=== PATIENT | male | born 1945 | race Caucasian/White ===

== ENCOUNTER 2017-07-08 10:25 | Day surgery (SDC) | payer MEDICARE, OTHER, SELFPAY ==
[2017-07-08 10:52] VITALS: BP 142/78; PULSE 87; RESP 16; TEMP 36.9; O2SAT 99; BMI 42.3
[2017-07-08] MEDS: Cefazolin 2 GM in 0.9% Normal Saline 100 ML IV (12:23)
[2017-07-08] MEDS: Bupivacaine Mpf 0.5% 30 ML VIAL (12:30)
--- NOTE | 2017-07-08 12:59 | PCM.OPRPT ---
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 The neck and chest were sterilely prepped and draped in the usual fashion. Seldinger's technique was used to gain access to the internal jugular vein guidewire was placed over the needle the needle was removed fluoroscopy was used to confirm placement of the guidewire into the internal jugular vein. Local was injected into the chest. Incision was made a pocket was created with use electrocautery for the port. A skin uri was made in the neck dilator and sheath were placed over the guidewire the guidewire was removed the dilator was removed single lumen catheter was placed through the sheath and the sheath was removed. Using fluoroscopy we use this to confirm proper length of the catheter. A tunneled from the pocket over the collarbone into the neck and brought the catheter down. I cut the catheter to length placed the locking hub on the catheter the port onto the catheter and secured the 2 with the locking hub and flushed and irrigated well it was sutured into the pocket with 2 sutures of 2-0 Prolene. Skin incisions were brought together with deep dermal stitches of 3-0 Vicryl. Dermabond was applied. I accessed the port and flushed and irrigated well and was flushed with 5 cc of hep flush sterile dressings were applied and the patient tolerated the procedure well. - Admit VTE Documentation VTE Present on Admission: No VTE Mechan Device Prophylaxis: SCD's VTE Pharm Prophylaxis ordered?: No Reason prophylaxis not ordered:: Treatment Not Indicated
[2017-07-08 13:10] VITALS: BP 125/60; BP 134/77; BP 142/78; PULSE 60; PULSE 94; RESP 16; TEMP 36.3; O2SAT 94; O2SAT 97
[2017-07-08 13:15] VITALS: BP 117/53; BP 142/78; PULSE 66; RESP 16; O2SAT 95
--- NOTE | 2017-07-08 13:15 | RAD_ITS ---
STUDY: X-RAY CHEST REASON FOR EXAM: Male, 71 years old. Port placement. TECHNIQUE: Single AP portable view of the chest. COMPARISON: Comparison is made with prior examination dated March 12, 2017. FINDINGS: A right-sided portacatheter has been placed. The tip is in the proximal portion of the superior vena cava. The lungs are clear and expanded. There is no demonstrated pleural abnormality. Sternal cerclage wires and vascular clips are present from a prior sternotomy and coronary artery bypass graft procedure (CABG). Borderline cardiomegaly. Normal mediastinum and yovanny. Normal visualized pulmonary arteries. Normal visualized aortic arch and descending thoracic aorta. Normal visualized thoracic spine. Normal visualized ribs, clavicles, and shoulders. There is no demonstrated abnormality of the visualized soft tissue structures of the upper abdomen. RAD/Chest 1 View (Portable) IMPRESSION: The tip of the right-sided portacatheter is in the proximal portion of the superior vena cava. Electronically Signed: Navdeep Pacheco MD at 14:02 EST Tel [phone], Service support ,
[2017-07-08 13:20] VITALS: BP 142/78; BP 96/83; PULSE 74; RESP 16; O2SAT 95
[2017-07-08 13:25] VITALS: BP 134/58; BP 142/78; PULSE 70; RESP 16; TEMP 36.4; O2SAT 99
[2017-07-08 13:58] VITALS: BP 142/78
== END 2017-07-08 14:00 | disposition home or self-care (01) ==
LOC: SDC 10:27 → AC 10:28
PROVIDERS: Family Provider Internal Medicine; PCP Internal Medicine; Visit Provider Surgery
PROC: (CPT 36561; principal; 2017-07-08 12:15)
DX: C34.12 Malignant neoplasm of upper lobe, left bronchus or lung (principal); Z45.2 Encounter for adjustment and management of vascular access device; I25.10 Atherosclerotic heart disease of native coronary artery without angina pectoris; I48.91 Unspecified atrial fibrillation; I47.2 Ventricular tachycardia; I10 Essential (primary) hypertension; J44.9 Chronic obstructive pulmonary disease, unspecified; E78.00 Pure hypercholesterolemia, unspecified; G31.83 Neurocognitive disorder with Lewy bodies; F02.80 Dementia in other diseases classified elsewhere, unspecified severity, without behavioral disturbance, psychotic disturbance, mood disturbance, and anxiety; G47.33 Obstructive sleep apnea (adult) (pediatric); I27.20 Pulmonary hypertension, unspecified; Z79.01 Long term (current) use of anticoagulants; Z99.81 Dependence on supplemental oxygen; Z95.1 Presence of aortocoronary bypass graft; Z79.82 Long term (current) use of aspirin; Z79.899 Other long term (current) drug therapy; Z95.5 Presence of coronary angioplasty implant and graft; E11.40 Type 2 diabetes mellitus with diabetic neuropathy, unspecified; Q23.1 Congenital insufficiency of aortic valve; E66.9 Obesity, unspecified; Z68.41 Body mass index [BMI] 40.0-44.9, adult
CPT/HCPCS: 00532; 36561; 71045; 77001; J7120; C1788

== ENCOUNTER 2017-08-31 12:29 | Emergency (ER) | payer MEDICARE, OTHER, SELFPAY ==
[2017-08-31 12:30] VITALS: BP 122/49; PULSE 86; RESP 26; TEMP 35.8; O2SAT 95; BMI 43.0
[2017-08-31] MEDS: Oxymetazoline 0.05% 1 SPRAY SPRAY.BTL NASAL (12:50)
--- NOTE | 2017-08-31 13:36 | ED.VISSUMM ---
- ER Visit Summary Date of Service: 08/31/17 Chief Complaint: [] Right sided nosebleed multiple medical problems Xarelto aspirin therapy History of Present Illness: The patient is a 71 M [] history of heart disease, A. fib on the lung cancer, home O2, recent chemotherapy, recent blood transfusion a few days ago reports he has had intermittent bleeding from his right nostril he has had a URI minimally, blowing his nose quite a bit the bleeding persisted today and he came in he has not taken his Xarelto or aspirin yet. He denies any vomiting of blood or blood per rectum or bruisability the skin he is otherwise been in his stable state of health eating and drinking and going about his usual type activities Physical Examination: [] Total signs are within normal range there is excoriation of the right nasal septum there is clot in place that appears fresh there is no active bleeding the left nostril is clear the throat is clear no bleeding the neck is supple he is on home O2 his lungs are diminished the heart tones are unremarkable rate of about 80 the abdomen soft nontender obese he is moving all 4 extremities in no distress awake and alert right nasal pack place with no difficulty Test Results: [] Emergency Department Course and Treatment: [] That complaint we did pack his nose we look at his recent blood tests we had a platelet count of 100,000, hemoglobin about 8 after packing the right nostril he had no further bleeding during observation we checked the back of his throat that was also dry I explained to the we could repeat his blood tests but given that they were just done she deferred that he was started on Keflex follow-up with Dr. Antonio of ENT and all his other physicians or return for further bleeding I have asked him to hold his Xarelto and aspirin for 24-48 hrs. until he follows up is done that in the past with no difficulty Treatment Plan: [] Disposition: [] Stable home Impression: [] rt Sided nosebleed, nasal pack multiple medical history as above This note was generated with [employer] dictation software. It may contain incorrect words, spelling, and punctuation that were not noted in review of the chart prior to signing ED Disposition - Plan for ED Patient: Chief Complaint: Nosebleed Referrals: Fast,Fany, DO [Primary Care Provider] -
--- NOTE | 2017-08-31 13:50 | ED.DEP ---
ED Disposition - Plan for ED Patient: Chief Complaint: Nosebleed Instructions: Nosebleed Prescriptions: Cephalexin [Keflex] 500 mg PO Q6 #40 cap Referrals: Fany Hobson DO [Primary Care Provider] - Derek Prescott MD [STAFF PHYSICIAN] -
[2017-08-31 14:07] VITALS: BP 118/80; PULSE 92; RESP 14; O2SAT 98
[2017-08-31] MEDS: Cephalexin 250 MG Capsule 500 MG PO (14:12)
== END 2017-08-31 14:18 | disposition home or self-care (01) ==
PROVIDERS: Emergency Provider Emergency Medicine; Family Provider Internal Medicine; PCP Internal Medicine
DX: R04.0 Epistaxis (principal); I51.9 Heart disease, unspecified; I48.91 Unspecified atrial fibrillation; C34.90 Malignant neoplasm of unspecified part of unspecified bronchus or lung; Z99.81 Dependence on supplemental oxygen; Z79.01 Long term (current) use of anticoagulants; Z79.82 Long term (current) use of aspirin; Z79.899 Other long term (current) drug therapy
CPT/HCPCS: 30901; 99282

== ENCOUNTER 2017-09-01 15:00 | Outpatient (CLI) | payer MEDICARE, OTHER, SELFPAY ==
[2017-09-01] VITALS (8 sets, daily range): BP systolic 123–168; BP diastolic 43–79; PULSE 65–122; RESP 16–20; TEMP 36.7–37.3; O2SAT 91–98
--- NOTE | 2017-09-01 17:22 | NURSING ---
LUNGS CLEAR BUT DIMINISHED
[2017-09-01] MEDS: Furosemide 20 MG/2 ML VIAL IV (18:50)
[2017-09-01] MEDS: 0.9% NaCl VAD Flush 10 ML IV ×2 (18:51→22:54)
--- NOTE | 2017-09-01 20:32 | NURSING ---
Up to bathroom with SBA. Tolerated well. Visitor now present in the room.
--- NOTE | 2017-09-01 23:00 | NURSING ---
Port deaccessed. Dry sterile dressing applied. No active bleeding noted.
== END 2017-09-01 23:11 | disposition home or self-care (01) ==
LOC: MS3OUT 15:27 → MS3 15:29
PROVIDERS: Family Provider Internal Medicine; PCP Internal Medicine; Visit Provider Nurse Practitioner Family
DX: D64.81 Anemia due to antineoplastic chemotherapy (principal); C34.12 Malignant neoplasm of upper lobe, left bronchus or lung
CPT/HCPCS: 36430; 86850; 86900; 86920; 86922; P9016; A4216; J1940

== ENCOUNTER 2017-09-29 16:06 | Emergency (ER) | payer MEDICARE, OTHER, SELFPAY ==
[2017-09-29 16:07] VITALS: BP 131/54; PULSE 81; RESP 24; TEMP 36.6; O2SAT 80; BMI 40.8
[2017-09-29 16:28] VITALS: BP 103/69; PULSE 89; O2SAT 97
--- NOTE | 2017-09-29 16:41 | RAD_ITS ---
STUDY: X-RAY CHEST REASON FOR EXAM: Male, 72 years old. Dyspnea shortness of breath chest pain TECHNIQUE: Single AP portable view of the chest. COMPARISON: July 08, 2017 chest x-ray FINDINGS: There is a right-sided portacatheter tip is in the superior vena cava. Interstitial markings are minimally prominent at the lung bases. There is vascular prominence. There are upper lobe is limited as blebs. There is postoperative change in the left apex. Sternal cerclage wires are present from a prior sternotomy. Normal mediastinum and yovanny. Normal visualized pulmonary arteries. There is atherosclerotic calcification of the aortic arch with tortuosity. There are diffuse degenerative changes of the visualized thoracic spine. Normal visualized ribs, clavicles, and shoulders. There is no demonstrated abnormality of the visualized soft tissue structures of the upper abdomen. RAD/Chest 1 View (Portable) IMPRESSION: Status post sternotomy. Cardiomegaly. Port-A-Cath. Findings suggestive minimal vascular congestion. Lower lobe atelectasis and upper lobe emphysema change chronic obstructive pulmonary disease. Postoperative changes left apex. Electronically Signed: Anastasia Fonseca MD at 17:12 EDT Tel , Service support ,
--- NOTE | 2017-09-29 16:42 | EKG12_ITS ---
Test Reason : CP Blood Pressure : / mmHG Vent. Rate : 094 BPM Atrial Rate : 166 BPM P-R Int : 000 ms QRS Dur : 086 ms QT Int : 362 ms P-R-T Axes : 000 -14 120 degrees QTc Int : 452 ms Atrial fibrillation Marked ST abnormality, possible inferior subendocardial injury Abnormal ECG Confirmed by RAHUL GERMAIN ([id number]), editor map ALEXIS RO ([id number]) on 10/02/2017 2:39:03 PM Referred By: Fany Hobson Confirmed By:RAHUL GERMAIN
[2017-09-29 17:17] VITALS: BP 114/76; BP 118/72; BP 119/82; PULSE 80; PULSE 83; RESP 18; O2SAT 100
[2017-09-29 17:20] LABS: Absolute Lymphocyte Count 0.68 X10^3/ul (0.83-4.51); Absolute Neutrophil Count 3.2 X10^3/uL (2.0-7.7); Basophil# 0.01 X10^3/uL; Basophil% 0.2 % (0-1); Eosinophil# 0.14 X10^3/uL; Eosinophils% 3.1 % (0-5); Lymphocyte # 0.68 X10^3/ul (4.0); Lymphocyte % 14.8 % (19-41); Mean Corp Hgb Conc 31.3 g/gl (32-36); Mean Corpuscular Hgb 30.9 pg (27.0-32.0); Mean Corpuscular Volume 98.8 fL (80-94); Mean Platelet Vol. 10.4 fl (6.2-12.0); Monocyte# 0.52 X10^3/uL; Monocyte% 11.3 % (0-10); Neutrophil # 3.21 X10^3/uL (2.7-7.7); Neutrophil % 69.9 % (47-70); RBC Distribution Width CV 23.1 % (11.6-14.6); RBC Distribution Width SD 76.8 fl (35.1-43.9); Red Blood Count 1.62 M/mm3 (4.6-6.2); White Blood Count 4.6 K/mm3 (4.4-11.0)
[2017-09-29 17:22] LABS: Platelet Count 44 K/mm3 (150-450)
[2017-09-29] MEDS: 0.9% Normal Saline 1,000 ML 150 ML IV (17:22)
[2017-09-29 17:23] LABS: Differential Indicated SCAN CRITERIA MET; POSITIVE COUNT YES; POSITIVE DIFFERENTIAL NO; POSITIVE MORPHOLOGY YES
[2017-09-29 17:30] LABS: Anion Gap 6 (5-15); BUN 11 mg/dL (7-18); BUN/Creat Ratio 12.6 RATIO (10-20); Chloride 108 mmol/L (98-107); Creatinine, Serum 0.87 mg/dL (0.70-1.30); EST Glomerular Filtration Rate 91 mL/min (>60); Est Glom Filt Rate - Afr Amer 110 mL/min (>60); Estimated Creatinine Clearance 79.25 ml/min; Glucose 101 mg/dL (74-106); Potassium 4.5 mmol/L (3.5-5.1); Sodium Level 139 mmol/L (136-145)
--- NOTE | 2017-09-29 17:40 | ED.RN ---
critical lab values hgb 5.[address] and [address] Zavala and Kely RN notified
[2017-09-29 17:41] LABS: Anisocytosis 2+; Hypochromasia 1+; Macrocytosis 1+; Platelet Estimate MKD DEC (ADEQ); Polychromasia 1+
[2017-09-29 17:42] LABS: Dohle Bodies RARE; Toxic Granulation RARE
--- NOTE | 2017-09-29 18:18 | NURSING ---
[facility] GEN [id number] REPORT [id number]
[2017-09-29 18:29] VITALS: BP 118/82; PULSE 90; RESP 18; O2SAT 98
[2017-09-29 18:31] VITALS: BP 118/82; BP 140/44; PULSE 86; PULSE 88; RESP 18; RESP 20; O2SAT 100; O2SAT 98
--- NOTE | 2017-09-29 18:45 | ED.VISSUMM ---
- ER Visit Summary Date of Service: 09/29/17 Chief Complaint: [Shortness of breath] History of Present Illness: The patient is a 72 M [presents the emergency department with dyspnea it has been ongoing for approximately 1 week but worse over last 2 days. Patient started noticing some black stool 2 days ago. Patient feels generally weak and lightheaded with standing. Patient also has had some intermittent chest discomfort that usually resolves after patient uses oxygen. Patient does have a history of lung cancer and is undergoing chemotherapy with his last chemo treatment about 2 weeks ago. Patient also has a history of COPD, Parkinson's, and atrial fibrillation. Patient is on Xarelto.] Patient has had some intermittent nosebleeds as well. Physical Examination: [HEENT-PERRLA, EOMI. Cranial nerves II through XII grossly intact. TMs clear. Mucous membranes moist. No adenopathy. Patient is pale appearing Cardiovascular- irregular with a 2 out of 6 systolic ejection murmur noted. Lungs-clear to auscultation, chest wall stable without crepitus or subcu emphysema Abdomen-normoactive bowel sounds, soft, nontender, no rebound or rigidity, no peritoneal signs. There was black tarry stool that was Hemoccult positive Extremities-intact ?4, normal range of motion, normal pulses, atraumatic] Test Results: [EKG obtained showed atrial fibrillation with a ventricular rate of [address] changes when compared with prior EKG from January 02, 2017 no new changes noted. CBC with differential was showed a hemoglobin of 5.0, hematocrit 16, WBCs 4.6, platelet count 44. Chemistries unremarkable. Troponin was 0.12. Hemoccult positive. Chest x-ray showed chronic changes otherwise nothing acute.] Emergency Department Course and Treatment: [Patient was typed and crossed for 2 units packed red blood cells.] Treatment Plan: [We do not have GI coverage available at [place] therefore patient will be transferred to [facility].] Disposition: [Transfer] Impression: [Anemia Upper GI hemorrhage Indeterminant troponin elevation] This note was generated with [employer] dictation software. It may contain incorrect words, spelling, and punctuation that were not noted in review of the chart prior to signing ED Disposition - Plan for ED Patient: Chief Complaint: Shortness of Breath Referrals: Fany Hobson DO [Primary Care Provider] -
--- NOTE | 2017-09-29 18:50 | ED.DCSUM_ITS ---
- ER Visit Summary Date of Service: 09/29/17 Chief Complaint: [Shortness of breath] History of Present Illness: The patient is a 72 M [presents the emergency department with dyspnea it has been ongoing for approximately 1 week but worse over last 2 days. Patient started noticing some black stool 2 days ago. Patient feels generally weak and lightheaded with standing. Patient also has had some intermittent chest discomfort that usually resolves after patient uses oxygen. Patient does have a history of lung cancer and is undergoing chemotherapy with his last chemo treatment about 2 weeks ago. Patient also has a history of COPD, Parkinson's, and atrial fibrillation. Patient is on Xarelto. ] Patient has had some intermittent nosebleeds as well. Physical Examination: [HEENT-PERRLA, EOMI. Cranial nerves II through XII grossly intact. TMs clear. Mucous membranes moist. No adenopathy. Patient is pale appearing Cardiovascular- irregular with a 2 out of 6 systolic ejection murmur noted. Lungs-clear to auscultation, chest wall stable without crepitus or subcu emphysema Abdomen-normoactive bowel sounds, soft, nontender, no rebound or rigidity, no peritoneal signs. There was black tarry stool that was Hemoccult positive Extremities-intact ?4, normal range of motion, normal pulses, atraumatic] Test Results: [EKG obtained showed atrial fibrillation with a ventricular rate of [address] changes when compared with prior EKG from December no new changes noted. CBC with differential was showed a hemoglobin of 5.0, hematocrit 16, WBCs 4.6, platelet count 44. Chemistries unremarkable. Troponin was 0.12. Hemoccult positive. Chest x-ray showed chronic changes otherwise nothing acute.] Emergency Department Course and Treatment: [Patient was typed and crossed for 2 units packed red blood cells.] Treatment Plan: [We do not have GI coverage available at [place] therefore patient will be transferred to [facility].] Disposition: [Transfer] Impression: [Anemia Upper GI hemorrhage Indeterminant troponin elevation] This note was generated with [employer] dictation software. It may contain incorrect words, spelling, and punctuation that were not noted in review of the chart prior to signing ED Disposition - Plan for ED Patient: Chief Complaint: Shortness of Breath Referrals: Fany Hobson DO [Primary Care Provider] -
[2017-09-29 19:03] VITALS: BP 140/76; PULSE 82; RESP 20; O2SAT 100
[2017-09-30 10:06] LABS: Pathologist Review Reviewed
== END 2017-09-29 19:22 | disposition short-term general hospital (02) ==
PROVIDERS: Emergency Provider Emergency Medicine; Family Provider Internal Medicine; PCP Internal Medicine
DX: D64.9 Anemia, unspecified (principal); K92.2 Gastrointestinal hemorrhage, unspecified; K92.1 Melena; R79.89 Other specified abnormal findings of blood chemistry; R01.1 Cardiac murmur, unspecified; I48.91 Unspecified atrial fibrillation; J44.9 Chronic obstructive pulmonary disease, unspecified; G20 Parkinson's disease; C34.90 Malignant neoplasm of unspecified part of unspecified bronchus or lung; Z87.891 Personal history of nicotine dependence; Z95.1 Presence of aortocoronary bypass graft; Z79.01 Long term (current) use of anticoagulants; Z79.899 Other long term (current) drug therapy
CPT/HCPCS: 71045; 80048; 82274; 84484; 85025; 86850; 86900; 86920; 93005; 96361; 96365; 99285; J7030; A4216

== ENCOUNTER → 2017-10-06 15:52 | Outpatient (CLI) | payer MEDICARE, OTHER, SELFPAY ==
--- NOTE | 2017-10-06 15:59 | RAD_ITS ---
STUDY: X-RAY CHEST REASON FOR EXAM: Male, 72 years old. Cough x1 week, history of left lung cancer TECHNIQUE: PA and lateral views of the chest. COMPARISON: Previous study of 09/29/2017 FINDINGS: There is a right-sided MediPort with catheter tip in the region of the mid SVC. There are postsurgical changes of the left upper lobe. There is hemidiaphragmatic flattening which may be associated with COPD. Left apical pleural thickening is seen. There is mild cardiac enlargement. Status post sternotomy changes are noted. Normal mediastinum and yovanny. Normal visualized pulmonary arteries. There are calcified plaques of the thoracic aorta. Normal visualized thoracic spine. Normal visualized ribs, clavicles, and shoulders. There is no demonstrated abnormality of the visualized soft tissue structures of the upper abdomen. RAD/Chest PA and Lateral IMPRESSION: 1. Right-sided Mediport with catheter tip in the region of the mid SVC. 2. Status post surgical changes of the left upper lobe. Left apical pleural thickening. 3. Hemidiaphragmatic flattening which may be associated with COPD. 4. Mild cardiomegaly. Status post sternotomy. 5. Calcified plaques of the thoracic aorta. 6. Findings are similar to the previous study. Electronically Signed: Kee Burkett MD at 16:18 EDT , Service support ,
[2017-10-06 18:23] LABS: ALB/GLOB Ratio 0.8 RATIO (0.9-2.4); AST(SGOT) 24 U/L (15-37); Alanine Aminotransfer ALT/SGPT 22 U/L (16-61); Albumin, Serum 2.8 g/dL (3.2-5.0); Alkaline Phosphatase 105 U/L (45-117); Anion Gap 5 (5-15); BUN 5 mg/dL (7-18); Calcium,Total 8.5 mg/dL (8.5-10.1); Chloride 105 mmol/L (98-107); Creatinine, Serum 0.83 mg/dL (0.70-1.30); EST Glomerular Filtration Rate 97 mL/min (>60); Est Glom Filt Rate - Afr Amer 117 mL/min (>60); Globulin 3.3 g/dL (2.2-4.2); Glucose 93 mg/dL (74-106); Hematocrit 30.1 % (40-54); Hemoglobin 9.2 g/dl (13.0-16.5); Mean Corp Hgb Conc 30.6 g/gl (32-36); Mean Corpuscular Hgb 30.4 pg (27.0-32.0); Mean Corpuscular Volume 99.3 fL (80-94); Mean Platelet Vol. 10.4 fl (6.2-12.0); Platelet Count 292 K/mm3 (150-450); Protein, Total 6.1 g/dL (6.4-8.2); RBC Distribution Width CV 20.7 % (11.6-14.6); RBC Distribution Width SD 69.7 fl (35.1-43.9); Red Blood Count 3.03 M/mm3 (4.6-6.2); Sodium Level 141 mmol/L (136-145); White Blood Count 10.6 K/mm3 (4.4-11.0)
[2017-10-06 18:27] LABS: Differential Indicated MANUAL DIFF; POSITIVE COUNT YES; POSITIVE DIFFERENTIAL NO; POSITIVE MORPHOLOGY YES
[2017-10-06 18:47] LABS: Color, Urine Yellow (Yellow); Glucose, Dipstick Normal (Normal); Ketone-Dipstick Negative (Negative); Leukocyte Esterase-Dipstick Negative /ul (Negative); Nitrite-Dipstick Negative (Negative); Occult Blood-Urine Negative /ul (Negative); Protein-Dipstick Negative (Negative); Urine Bilirubin Dipstick Negative (Negative); Urine Clarity Sl. Cloudy (Clear); Urine Urobilinogen 1 mg/dl (Normal)
[2017-10-06 18:59] LABS: Eosinophil 5 % (0-5); Lymphocyte 7 % (19-41); Metamyelocyte 3 % (0-1); Monocyte 8 % (0-10); Myelocyte 4 (0-0); Neutrophil-Band 8 % (0-5); Neutrophil-Segmented 65 % (47-70); Total Cells Counted 100 (MANUAL DIFF)
[2017-10-06 19:02] LABS: Absolute Neutrophil Count 7.7 X10^3/uL (2.0-7.7)
[2017-10-06 19:03] LABS: Absolute Lymphocyte Count 0.74 X10^3/ul (0.83-4.51); Anisocytosis RARE; Macrocytosis RARE; Platelet Estimate ADEQUATE (ADEQ)
[2017-10-06 19:04] LABS: Hypochromasia RARE; Ovalocyte RARE; Toxic Granulation RARE
[2017-10-08 09:29] LABS: Pathologist Review Reviewed
== END ==
PROVIDERS: Family Provider Internal Medicine; PCP Internal Medicine; Visit Provider Internal Medicine
DX: R05 Cough (principal); D61.818 Other pancytopenia; R31.29 Other microscopic hematuria; K92.2 Gastrointestinal hemorrhage, unspecified
CPT/HCPCS: 36415; 71046; 80053; 81002; 85025

== ENCOUNTER → 2017-11-24 12:36 | Outpatient (CLI) | payer MEDICARE, OTHER, SELFPAY ==
--- NOTE | 2017-11-24 12:36 | DT_ITS ---
This patient was seen during an EMR downtime November 17, 2017 - November 24, 2017. This patient may have a combination of paper and electronic documentation or all paper documentation. All documentation is viewable within the e-chart portion of [employer] for each patient visit.
--- NOTE | 2017-11-24 12:41 | CDU_ITS ---
Reason For Study: Bruit Rt. Velocities/BP Lt. Velocities/BP Prox CCA 92/8 cm/sec. Prox CCA 89/19 cm/sec. Mid CCA 83/15 cm/sec. Mid CCA 82/9 cm/sec. Dist CCA 104/7 cm/sec. Dist CCA 76/14 cm/sec. Prox ICA 94/19 cm/sec. Prox ICA 85/16 cm/sec. Mid ICA 98/27 cm/sec. Mid ICA 102/24 cm/sec. Dist ICA 99/23 cm/sec. Dist ICA 103/20 cm/sec. Rt. ICA/CCA = 1.19. Lt. ICA/CCA = 1.25. Prox ECA 169/11 cm/sec. Prox ECA 333/22 cm/sec. Rt. Vert. 55/8 cm/sec. Lt. Vert. 48/15 cm/sec. Right Extracranial There is heterogeneous, irregular atherosclerotic plaque noted in the right common carotid artery. There is heterogeneous, irregular atherosclerotic plaque noted in the right internal carotid artery. There is heterogeneous, irregular atherosclerotic plaque noted in the right external carotid artery. Antegrade flow is noted in the right vertebral artery. Left Extracranial There is heterogeneous, irregular atherosclerotic plaque noted in the left common carotid artery. There is heterogeneous, irregular atherosclerotic plaque noted in the left internal carotid artery. The atherosclerotic plaque causes acoustic shadowing. There is heterogeneous, irregular atherosclerotic plaque noted in the left external carotid artery. Antegrade flow is noted in the left vertebral artery. Procedure Carotid Duplex [id number]. Exam performed in department. Interpretation Summary Mild (<50%) stenosis right extracranial internal carotid. Mild (<50%) stenosis left extracranial internal carotid. Flow within the vertebral arteries is antegrade bilaterally. Ordering Physician: Michoacano Garcia Referring Physician: Fany Hobson Performed By: Sumi Morris, MENDEZ, RVT
== END ==
PROVIDERS: Family Provider Internal Medicine; PCP Internal Medicine; Visit Provider Internal Medicine
DX: I65.23 Occlusion and stenosis of bilateral carotid arteries (principal); K92.2 Gastrointestinal hemorrhage, unspecified
CPT/HCPCS: 93880

== ENCOUNTER → 2017-12-04 10:42 | Outpatient (CLI) | payer MEDICARE, OTHER, SELFPAY ==
--- NOTE | 2017-12-04 10:45 | STE_ITS ---
Reason For Study: CAD, S/P CABG Stress Results Protocol: Dobutamine Stress Echo Maximum Predicted HR: 148 bpm Target HR: 126 bpm% Maximum Pre dicted HR: 85 % DurationHeart Rate Stage (mm:ss) (bpm) BPCom ment Baseline 77 151/75 No Chest Pain DSE 10 MCG 3:00 75 158/85No Chest Pain DSE 20 MCG 3:00 10 8 153/86No Chest Pain DSE 30 MCG 3:00 12 5 138/72No Chest Pain DSE 40 MCG 2:55 12 6 123/55No Chest Pain Recovery 97 119/73 No Chest Pain Stress Duration: 11:55 mm:ss Maximum Stress HR: 126 bpmME TS: 1 Baseline Echocardiogram Findings The estimated ejection fraction is 60 %. Stress Echo Wall motion Data Resting WMIntermediate WMStress WM Resting Wall Motion Wall Motion Stress No regional wall motion No regional wall motion abnormalities noted. abnormalities noted. EKG Data Atrial fibrillation with CVR. The patient was titrated from 10 mcg to a maximum of 40 mcg of dobutamine during the stress. The maximum heart rate attained was 144 beats per minute. This was 97% of maximum predicted heart rate. During dobutamine infusion, there were no ST or T wave changes noted to suggest ischemia. No clinical angina was noted. Interpretation Summary The estimated ejection fraction is 60 %. Normal, adequate, dobutamine echocardiogram. Negative for ischemia by EKG and echocardiographic criteria. No anginal symptoms noted. Appropriate blood pressure response to dobutamine. The patient developed frequent PVCs, ventricular couplets, and ventricular triplets as well as A. fib with aberrancy at peak infusion, which is a non-specific finding with dobutamine. No sustained ventricular arrhythmias noted. Final LVEF of 75%. Decreased sensitivity due to poor echo windows. No complications. Ordering Physician: Michoacano aGrcia Referring Physician: Michoacano Garcia Performed By: Vanda Christian, RDCS, RVT
== END ==
PROVIDERS: Family Provider Internal Medicine; PCP Internal Medicine; Visit Provider Internal Medicine Cardiovascular Disease
DX: I25.10 Atherosclerotic heart disease of native coronary artery without angina pectoris (principal); I48.2 Chronic atrial fibrillation
CPT/HCPCS: 93017; 93350; J7030; A4216

== ENCOUNTER → 2017-12-19 15:02 | Outpatient (CLI) | payer MEDICARE, OTHER, SELFPAY ==
--- NOTE | 2017-12-19 15:10 | RAD_ITS ---
STUDY: X-RAY CHEST REASON FOR EXAM: Male, 72 years old. LUNG NODULE. HX CA TECHNIQUE: Frontal and lateral views of the chest. COMPARISON: 10.06.17. FINDINGS: Chronic appearing increased interstitial lung markings. There are multiple median sternotomy wires. There is evidence for partial pneumonectomy of the left upper lobe. There is no demonstrated pleural abnormality. There is a right Port-A-Cath and/or mediport in place. The tip is in the superior vena cava. Enlarged heart size. Normal mediastinum and yovanny. Normal visualized pulmonary arteries. There is atherosclerotic calcification of the aortic arch with tortuosity. There are diffuse degenerative changes of the visualized thoracic spine. There is degenerative osteoarthritis of the bilateral shoulders. There is no demonstrated abnormality of the visualized soft tissue structures of the upper abdomen. RAD/Chest PA and Lateral IMPRESSION: There are no acute findings. There is evidence for partial pneumonectomy of the left upper lobe. Electronically Signed: Jaime Milligan MD at 16:56 EDT , Service support ,
== END ==
PROVIDERS: Family Provider Internal Medicine; PCP Internal Medicine; Visit Provider Internal Medicine Pulmonary Disease
DX: R91.1 Solitary pulmonary nodule (principal); Z85.118 Personal history of other malignant neoplasm of bronchus and lung
CPT/HCPCS: 71046

== ENCOUNTER 2017-12-21 21:31 | Inpatient (IN) | payer MEDICARE, OTHER, SELFPAY ==
[2017-12-21 21:31] VITALS: BP 125/68; PULSE 103; RESP 20; TEMP 38; O2SAT 93; BMI 39.7
[2017-12-21 22:57] VITALS: BP 126/53; PULSE 87; RESP 23; O2SAT 97
--- NOTE | 2017-12-21 23:16 | EKG12_ITS ---
Test Reason : FEVER Blood Pressure : / mmHG Vent. Rate : 086 BPM Atrial Rate : 087 BPM P-R Int : 000 ms QRS Dur : 088 ms QT Int : 386 ms P-R-T Axes : 000 -36 025 degrees QTc Int : 461 ms Atrial fibrillation Left axis deviation Abnormal ECG Confirmed by CORTEZ CLEARY, ROGELIO ([id number]), photography editor ALEXIS RO ([id number]) on 12/25/2017 1:09:48 PM Referred By: Vickey Salazar Confirmed By:ROGELIO TORO MD
[2017-12-21 23:17] VITALS: O2SAT 99
--- NOTE | 2017-12-21 23:19 | RAD_ITS ---
STUDY: X-RAY - LEFT TIBIA AND FIBULA REASON FOR EXAM: Male, 72 years old. Redness of the left lower extremity, with swelling and pain. Patient reports hitting the lower extremity. Generalized weakness, fatigue, and increasing shortness of breath for the last several days. Fever. TECHNIQUE: 4 view(s) of the tibia and fibula were obtained. COMPARISON: None. FINDINGS: Normal visualized tibia. Normal visualized fibula. There are surgical clips overlying posterior medial soft tissues in the region of the knee. RAD/Tibia & Fibula 2 Views IMPRESSION: No demonstrated fracture, dislocation, or destructive osseous lesion. Electronically Signed: Gaurav Douglas MD at 0:25 EDT , Service support ,
--- NOTE | 2017-12-21 23:24 | ED.DCSUM_ITS ---
- ER Visit Summary Date of Service: 12/21/17 Chief Complaint: Fever History of Present Illness: The patient is a 72 M presenting with fever. Patient states that he has had generalized weakness today. Last night he noticed shaking chills and subjective fever. His symptoms persisted today. He states when he got up to go to the bathroom last night he hit his left leg on the bed. He has been able to ambulate. Today noticed increasing redness of that area. He had Tylenol around 8 PM. He has had temperatures up to 100 at home. He denies chest pain. Complains of shortness of breath. He has nausea with no vomiting. He has mild diarrhea. Denies dysuria. He has a history of lung cancer and finished chemotherapy recently. Physical Examination: Vitals are stable. Temperature 100.4. Alert no acute distress. HEENT exam is unremarkable. Neck is supple. Lungs are clear and equal bilaterally. Heart is regular rate and rhythm. Abdomen is soft nontender nondistended. Extremities left lower extremity anterior erythema and warmth, mild symmetric edema Skin is warm and dry. No focal neurologic deficit. Remainder of exam is unremarkable. Emergency Department Course and Treatment: Chest x-ray shows no acute process. Left tib-fib x-ray shows no fracture. EKG is A. fib rate of 86. CBC shows a white count of 16.8, hemoglobin 10.3. Chemistries show potassium 3.4, glucose 118. Urinalysis unremarkable. Lactic acid is normal. Troponin is 0.052. Digoxin level is 1.26. Patient denies any chest pain. He was given Ancef IV for cellulitis. Will discuss with the hospitalist for admission. Disposition: Admission Impression: Febrile illness, generalized weakness, left lower extremity cellulitis This note was generated with [employer] dictation software. It may contain incorrect words, spelling, and punctuation that were not noted in review of the chart prior to signing ED Disposition - Plan for ED Patient: Chief Complaint: Fever Referrals: Fany Hobson DO [Primary Care Provider] -
--- NOTE | 2017-12-21 23:30 | RAD_ITS ---
STUDY: X-RAY CHEST REASON FOR EXAM: Male, 72 years old. Weakness TECHNIQUE: Single frontal view of the chest. COMPARISON: 12/19/2017 FINDINGS: Median sternotomy wires. Stable right chest wall port. The lungs are clear and expanded. There is no demonstrated pleural abnormality. Stable cardiac silhouette. Normal mediastinum and yovanny. Normal visualized pulmonary arteries. Normal visualized aortic arch and descending thoracic aorta. Normal visualized thoracic spine. Normal visualized ribs, clavicles, and shoulders. There is no demonstrated abnormality of the visualized soft tissue structures of the upper abdomen. RAD/Chest 1 View (Portable) IMPRESSION: No acute pulmonary findings. Electronically Signed: Chava Latham MD at 0:05 EDT Tel , Service support ,
[2017-12-21 23:33] LABS: Bacteria 0 SEEN /hpf (None Seen); Mucous, Urine 0 SEEN /hpf (<or=2+); Red Blood Cells-Urine 0 SEEN /hpf (0-5); White Blood Cells 0 SEEN /hpf (0-5)
[2017-12-21 23:38] LABS: Color, Urine Yellow (Yellow); Glucose, Dipstick Normal (Normal); Ketone-Dipstick Negative (Negative); Leukocyte Esterase-Dipstick Negative /ul (Negative); Nitrite-Dipstick Negative (Negative); Occult Blood-Urine 10 /ul (Negative); Protein-Dipstick 15 mg/dl (Negative); Urine Bilirubin Dipstick Negative (Negative); Urine Clarity Clear (Clear); Urine Urobilinogen 1 mg/dl (Normal); Urine pH 6.5 (5.0 - 8.0)
[2017-12-21] MEDS: Acetaminophen 500 MG Tablet PO (23:45)
[2017-12-21 23:49] VITALS: BP 131/59; PULSE 86; RESP 18; O2SAT 99
[2017-12-21 23:53] LABS: Absolute Lymphocyte Count 0.88 X10^3/ul (0.83-4.51); Absolute Neutrophil Count 14.7 X10^3/uL (2.0-7.7); Basophil# 0.02 X10^3/uL; Basophil% 0.1 % (0-1); Eosinophil# 0.03 X10^3/uL; Eosinophils% 0.2 % (0-5); Hematocrit 31.8 % (40-54); Hemoglobin 10.3 g/dl (13.0-16.5); Lymphocyte # 0.88 X10^3/ul (4.0); Lymphocyte % 5.2 % (19-41); Mean Corp Hgb Conc 32.4 g/gl (32-36); Mean Corpuscular Volume 89.6 fL (80-94); Mean Platelet Vol. 10.2 fl (6.2-12.0); Monocyte# 1.14 X10^3/uL; Monocyte% 6.8 % (0-10); Neutrophil % 87.5 % (47-70); Platelet Count 232 K/mm3 (150-450); RBC Distribution Width CV 15.6 % (11.6-14.6); RBC Distribution Width SD 50.4 fl (35.1-43.9); Red Blood Count 3.55 M/mm3 (4.6-6.2); White Blood Count 16.8 K/mm3 (4.4-11.0)
[2017-12-21 23:54] LABS: Squamous Epithelial Cells - UA 0-5 SEEN /hpf (0-5)
[2017-12-21 23:54] LABS: POSITIVE COUNT NO; POSITIVE DIFFERENTIAL NO; POSITIVE MORPHOLOGY NO
[2017-12-21] MEDS: 0.9% Normal Saline 1,000 ML 1000 ML IV (23:57)
[2017-12-22] VITALS (11 sets, daily range): BP systolic 125–154; BP diastolic 46–75; PULSE 70–91; RESP 18; TEMP 36.2–36.9; O2SAT 95–100; BMI 40.4
[2017-12-22 00:20] LABS: Anion Gap 9 (5-15); BUN 10 mg/dL (7-18); BUN/Creat Ratio 9.3 RATIO (10-20); Calcium,Total 8.1 mg/dL (8.5-10.1); Chloride 103 mmol/L (98-107); Creatinine, Serum 1.07 mg/dL (0.70-1.30); EST Glomerular Filtration Rate 72 mL/min (>60); Est Glom Filt Rate - Afr Amer 87 mL/min (>60); Glucose 118 mg/dL (74-106); Lactic Acid 1.2 mmol/L (0.4-2.0); Potassium 3.4 mmol/L (3.5-5.1); Sodium Level 138 mmol/L (136-145)
[2017-12-22 00:36] LABS: Digoxin Level 1.26 ng/mL (0.80-2.00)
[2017-12-22] MEDS: Cefazolin 1 GM/50 ML BAG IV (00:58)
--- NOTE | 2017-12-22 02:00 | VDLE_ITS ---
Reason For Study: Cellulitis RIGHT LEFT GSV is normal. CFV is compressible, spontaneous, phasic, CFV is compressible, spontaneous, phasic, competent, and demonstrates normal competent and demonstrates normal augmentation. augmentation. FV is compressible, spontaneous, phasic, FV is compressible, spontaneous, phasic, competent and demonstrates normal competent and demonstrates normal augmentation. augmentation. POP V is compressible, spontaneous, phasic, POP V is compressible, spontaneous, phasic, competent and demonstrates normal competent and demonstrates normal augmentation. augmentation. T/P Trunk is compressible. T/P Trunk is compressible. PTV is compressible. PTV is compressible. LT PerV is compressible. RT PerV is compressible. GSV harvested. Interpretation Summary Deep veins of the lower extremities are bilaterally patent and compressible segmentally. There is no evidence of deep vein thrombosis on either side. Valvular competence appears intact within the proximal deep venous systems bilaterally. The right greater saphenous vein appears patent and compressible segmentally. The left greater saphenous vein is absent, having been previously harvested. Ordering Physician: Prince Hua Referring Physician: Vickey Salazar V Performed By: Emilie Amezcua RVT
[2017-12-22] MEDS: 0.9% NaCl Peripheral Flush Adult/Peds IV (03:01)
[2017-12-22 03:13] LABS: Hemoglobin A1c 5.6 % (4.2-6.3)
--- NOTE | 2017-12-22 03:33 | PHA.PHARE_ITS ---
Consult Pharmacy has been consulted to manage selected antiobiotic: Vancomycin Type of Consult: New start Suspected Infection: Skin/Soft tissue Prior Doses of Antibiotics Received/Current Regimen: Medications Vancomycin HCl 2,000 mg/ (Sodium Chloride) 540 mls @ 260 mls/hr IV X1 ONE Stop: 12/22/17 04:34 Last Admin: 12/22/17 03:01 Dose: 260 mls/hr Medications Piperacillin Sod/Tazobactam Sod (Zosyn) 3.375 gm in 50 mls @ 12.5 mls/hr IV Q8 [facility] Labs: Sodium 138 mmol/L (136-145) 12/21/17 23:45 Potassium 3.4 mmol/L (3.5-5.1) L 12/21/17 23:45 Chloride 103 mmol/L (98-107) 12/21/17 23:45 Carbon Dioxide 26.0 mmol/L (21.0-32.0) 12/21/17 23:45 Anion Gap 9 (5-15) 12/21/17 23:45 BUN 10 mg/dL (7-18) 12/21/17 23:45 Creatinine 1.07 mg/dL (0.70-1.30) 12/21/17 23:45 Est GFR (MDRD) Af Amer 87 mL/min (>60) 12/21/17 23:45 Est GFR (MDRD) Non-Af 72 mL/min (>60) 12/21/17 23:45 BUN/Creatinine Ratio 9.3 RATIO (10-20) L 12/21/17 23:45 Glucose 118 mg/dL (74-106) H 12/21/17 23:45 Weight used for dosin.9 kg Estimated Creatinine Clearance: 62.4 Goal Trough: 15-20 mcg/mL Pharmacy Plan for Drug Dosing: Pharmacy Service will continue to monitor and adjust dosing as required. Medications Vancomycin HCl 1,500 mg/ (Sodium Chloride) 530 mls @ 250 mls/hr IV Q12H [facility] Follow-Up Labs: Trough Vancomycin Labs to be done on [date and time ordered]: 12/23 @ 1500
[2017-12-22 06:12] LABS: Absolute Lymphocyte Count 0.75 X10^3/ul (0.83-4.51); Absolute Neutrophil Count 9.2 X10^3/uL (2.0-7.7); Basophil# 0.01 X10^3/uL; Basophil% 0.1 % (0-1); Eosinophil# 0.03 X10^3/uL; Eosinophils% 0.3 % (0-5); Hematocrit 31.1 % (40-54); Hemoglobin 9.6 g/dl (13.0-16.5); Lymphocyte # 0.75 X10^3/ul (4.0); Lymphocyte % 6.8 % (19-41); Mean Corp Hgb Conc 30.9 g/gl (32-36); Mean Corpuscular Hgb 28.1 pg (27.0-32.0); Mean Corpuscular Volume 90.9 fL (80-94); Mean Platelet Vol. 9.8 fl (6.2-12.0); Monocyte# 1.06 X10^3/uL; Monocyte% 9.6 % (0-10); Neutrophil # 9.16 X10^3/uL (2.7-7.7); Neutrophil % 83.1 % (47-70); Platelet Count 207 K/mm3 (150-450); RBC Distribution Width CV 15.9 % (11.6-14.6); RBC Distribution Width SD 52.9 fl (35.1-43.9); Red Blood Count 3.42 M/mm3 (4.6-6.2)
--- NOTE | 2017-12-22 06:16 | PCM.HP.STD ---
Problem List (1) Cellulitis Status: Acute (2) History of coronary artery stent placement Status: Chronic Comment: [id number] anastomosis-LAD w/ Taxus 2.75 x 8 mm and POBA-PDA 12/23/2006 (3) Left VATS procedure with wedge resection KATIE Status: Acute (4) History of cardioversion Status: Chronic (5) Iron deficiency anemia due to chronic blood loss Status: Chronic Comment: Gastric AVMs, September 2017 (6) Constipation Status: Acute Qualifiers: (7) Secondary pulmonary arterial hypertension Status: Chronic (8) 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 He has been having chill and subjective fever for the past few days. He noted redness and swelling in his left foot yesterday. Swelling has increased over the past day. Pain increase is cramping and severe. Nothing makes it better or worse. Pain is severe. Past Medical History Past Medical History (Chronic Problems): Chronic Problems (Last Reviewed 10/23/17 @ 10:35 by Dagmar Strickland) Chronic atrial fibrillation (Chronic) angiolasty and stenting to BLE iliac arteries (Chronic ~08/04/12) History of left heart catheterization (Chronic ~12/04/16) Widely patent HERRERA and SVG grafts per [facility] 05/07/[address] Garcia [facility]; [facility] 05/16/[address] Naylor @ [facility] History of coronary artery stent placement (Chronic ~12/23/06) [id number] anastomosis-LAD w/ Taxus 2.75 x 8 mm and POBA-PDA 12/23/2006 History of cardioversion (Chronic ~12/2016) Iron deficiency anemia due to chronic blood loss (Chronic) Gastric AVMs, September 2017 Secondary pulmonary arterial hypertension (Chronic) Atherosclerosis of coronary artery of [place] heart without angina pectoris (Chronic) CABG x 2 HERRERA-LAD, SVG-OM 02/14/2006 [id number] anastomosis-LAD w/ Taxus 2.75 x 8 mm and POBA-PDA 12/23/2006 H/O coronary artery bypass surgery (Chronic ~02/14/06) CABG x 2 HERRERA-LAD, SVG-OM 02/14/[address] Fei Castillo, [facility] Medical History: Medical History (Last Reviewed 12/22/17 @ 06:26 by Prince Hua MD) GI bleed (Acute) K92.2 tsferred to [facility], transfused with 2 units PRBC's. Chronic atrial fibrillation (Chronic) I48.2 port placement (Acute) Secondary pulmonary arterial hypertension (Chronic) I27.21 Atherosclerosis of coronary artery of [place] heart without angina pectoris (Chronic) I25.10 CABG x 2 HERRERA-LAD, SVG-OM 02/14/2006 [id number] anastomosis-LAD w/ Taxus 2.75 x 8 mm and POBA-PDA 12/23/2006 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 (Acute) C34.12 Chemotherapy induced neutropenia (Acute) D70.1, T45.1X5A Anemia (Acute) D64.9 COPD (chronic obstructive pulmonary disease) (Acute) J44.9 Dyspnea (Acute) R06.00 Diabetes (Acute) E11.9 Neuropathy (Acute) G62.9 Arthritis (Acute) M19.90 Obesity (Acute) E66.9 Alcohol dependence (Acute) F10.20 GERD (gastroesophageal reflux disease) (Acute) K21.9 DJD (degenerative joint disease) (Acute) M19.90 Vascular disease (Acute) I99.9 Renal disease (Acute) N28.9 Macular degeneration (Acute) H35.30 Arrhythmia (Acute) I49.9 Migraine (Acute) G43.909 Memory loss (Acute) R41.3 Hypotestosteronism (Acute) E34.9 Essential tremor (Acute) G25.0 Parkinsons (Acute) G20 Dementia (Acute) F03.90 HEBER (obstructive sleep apnea) (Acute) G47.33 Benign essential hypertension (Acute) I10 Hammertoes of both feet (Acute) M20.41, M20.42 Allergies No Known Allergies Allergy (Verified 12/21/17 21:32) Home Medications: Ambulatory Orders Medication Instructions Recorded Fenofibrate [Tricor] 145 mg PO DAILY 05/06/13 Folic Acid 1 mg PO DAILY@0800 05/06/13 Tiotropium [place] [Spiriva 18 MCG] 1 puff INHALATION DAILY 05/06/13 Duloxetine HCl 60 mg PO QHS 12/04/16 Pramipexole Di-HCl [Mirapex] 0.5 mg PO TID 12/04/16 Digoxin 250 mcg PO DAILY 02/27/17 furosemide 40 mg tablet 40 mg PO QODAY tab 09/25/17 metoprolol tartrate 25 mg tablet 25 mg PO QDAY #30 tab 09/25/17 pravastatin 40 mg tablet 40 mg PO QHS 09/25/17 valsartan 40 mg tablet 40 mg PO QDAY #30 tab 09/25/17 aspirin 81 mg tablet,delayed 81 mg PO QDAY 10/06/17 release cyanocobalamin (vit B-12) 1,000 1,000 mcg PO QDAY 10/20/17 mcg tablet docusate sodium 100 mg capsule 100 mg PO QDAY cap 10/20/17 gabapentin 600 mg tablet 600 mg PO BID tab 10/20/17 lidocaine-prilocaine 2.5 %-2.5 % 1 applic TOPICAL .COMPLEX PRN #30 g 10/20/17 topical cream potassium chloride ER 20 mEq 20 meq PO BID 10/20/17 tablet,extended release Budesonide [Pulmicort] 0.25 mg IH TID 10/23/17 Furosemide [Lasix] 20 mg PO QODAY 10/23/17 rivaroxaban 10 mg tablet 10 mg PO QDAY #90 tab 12/08/17 Surgical History: Surgical History (Last Reviewed 12/22/17 @ 06:26 by Prince Hua MD) angiolasty and stenting to BLE iliac arteries (Chronic) Onset Date: ~08/04/12 History of left heart catheterization (Chronic) Onset Date: ~12/04/16 Z98.890 Widely patent HERRERA and SVG grafts per [facility] 05/07/[address] Garcia [facility]; [facility] 05/16/[address] Naylor @ [facility] History of coronary artery stent placement (Chronic) Onset Date: ~12/23/06 Z95.5 [id number] anastomosis-LAD w/ Taxus 2.75 x 8 mm and POBA-PDA 12/23/2006 Left VATS procedure with wedge resection KATIE (Acute) History of cardioversion (Chronic) Onset Date: ~12/2016 Z98.890 H/O coronary artery bypass surgery (Chronic) Onset Date: ~02/14/06 Z95.1 CABG x 2 HERRERA-LAD, SVG-OM 02/14/[address] Fei Castillo, [facility] S/P CABG x 2 (Acute) Z95.1 Psychiatric History: No pertinent psych hx Smoking Status: Former smoker Alcohol: None Drugs: None Review of Systems Constitutional: Denies: Chills, Fever, Weight Change HEENT: Denies: Head Aches, Sinus Congestion, Sinus Drainage Cardiovascular: Denies: Chest Pain, Palpitations Respiratory: Denies: Cough, Shortness of breath at rest, Sputum production Gastrointestinal: Denies: Abdominal Pain, Nausea, Vomiting Genitourinary: Denies: Dysuria Musculoskeletal: Denies: Joint Pain, Joint Tenderness Skin: Denies: Rash, Wounds Neurological: Denies: Numbness, Tingling, Focal weakness Psychiatric: Denies: Anxiety, Depression, Homicidal Ideations, Suicidal Ideations Hematologic/ Lymphatic: Denies: Easy Bruising, Easy Bleeding VTE Information - Inpt Only VTE Present on Admission: No VTE Mechan Device Prophylaxis: SCD's VTE Pharm Prophylaxis ordered?: Yes Patient Problems: Active and Suspected Problems (Last Reviewed 10/23/17 @ 10:35 by Dagmar Strickland) Cellulitis (Acute) - Physical Exam General: Alert, Oriented x3, Cooperative HEENT: Atraumatic, PERRLA, EOMI, Normocephalic Neck: Supple, No JVD, Negative Carotid Bruits Lungs: Clear to auscultation, Normal air movement Cardiovascular: Regular rate, No murmurs Abdomen: Bowel Sounds Present, Soft, Non Tender Extremities: Capillary Refill Less than 3 Seconds, Edema Skin: No rashes, No breakdown Musculoskeletal: No Tenderness to Palpation of Joints or Extremities Neurological: Cranial nerves II-XII grossly intact Psych/Mental Status: Normal Affect, Appropriate Vital Signs Temp Pulse Resp BP Pulse Ox 98.0 F 84 18 137/56 H 100 12/22/17 02:22 12/22/17 02:35 12/22/17 02:22 12/22/17 02:22 12/22/17 02:22 Oxygen Flow Rate (L/min) 3 Oxygen Delivery Method Nasal Cannula Weight: 123.972 kg Body Mass Index (BMI) 40.4 Laboratory Tests Past 24 Hrs 12/22/17 12/22/17 12/22/17 02:19 02:19 05:22 WBC Pending RBC Pending Hgb Pending Hct Pending MCV Pending MCH Pending MCHC Pending RDW Pending RDW Differential Pending Plt Count Pending Neut % (Auto) Pending Absolute Neuts (auto) Pending Total Counted Pending Sodium Potassium Chloride Carbon Dioxide Anion Gap BUN Creatinine Est GFR (MDRD) Af Amer Est GFR (MDRD) Non-Af BUN/Creatinine Ratio Glucose Hemoglobin A1c 5.6 Calcium Troponin I 0.059 H 12/22/17 05:22 WBC RBC Hgb Hct MCV MCH MCHC RDW RDW Differential Plt Count Neut % (Auto) Absolute Neuts (auto) Total Counted Sodium Pending Potassium Pending Chloride Pending Carbon Dioxide Pending Anion Gap Pending BUN Pending Creatinine Pending Est GFR (MDRD) Af Amer Pending Est GFR (MDRD) Non-Af Pending BUN/Creatinine Ratio Pending Glucose Pending Hemoglobin A1c Calcium Pending Troponin I Pending Assessment/Plan All Active Problems (Last Reviewed 10/23/17 @ 10:35 by Dagmar Strickland) Educational circumstance (Acute) Cellulitis (Acute) GI bleed (Acute) Left VATS procedure with wedge resection KATIE (Acute) port placement (Acute) Educational circumstance (Acute) Cancer of upper lobe of left lung (Acute) Antineoplastic chemotherapy induced anemia (Acute) Constipation (Acute) 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 (Acute) Chemotherapy induced neutropenia (Acute) Anemia (Acute) COPD (chronic obstructive pulmonary disease) (Acute) Dyspnea (Acute) Diabetes (Acute) Neuropathy (Acute) Arthritis (Acute) Obesity (Acute) Alcohol dependence (Acute) GERD (gastroesophageal reflux disease) (Acute) DJD (degenerative joint disease) (Acute) Vascular disease (Acute) Renal disease (Acute) Macular degeneration (Acute) Arrhythmia (Acute) Migraine (Acute) Memory loss (Acute) Hypotestosteronism (Acute) Essential tremor (Acute) Parkinsons (Acute) Dementia (Acute) HEBER (obstructive sleep apnea) (Acute) Benign essential hypertension (Acute) Hammertoes of both feet (Acute) S/P CABG x 2 (Acute) 72 year old male w/ h/o COPD, DMII, CAD, HTN, and afib admitted for cellulitis. 1) Cellulitis: Will start zosyn and vancomycin. Cultures pending. 2) Afib: Resume home meds. Monitor. 3) H/o lung cancer: Supportive care.
--- NOTE | 2017-12-22 06:27 | HP.PCM_ITS ---
Problem List (1) Cellulitis Status: Acute (2) History of coronary artery stent placement Status: Chronic Comment: [id number] anastomosis-LAD w/ Taxus 2.75 x 8 mm and POBA-PDA 12/23/2006 (3) Left VATS procedure with wedge resection KATIE Status: Acute (4) History of cardioversion Status: Chronic (5) Iron deficiency anemia due to chronic blood loss Status: Chronic Comment: Gastric AVMs, September 2017 (6) Constipation Status: Acute Qualifiers: (7) Secondary pulmonary arterial hypertension Status: Chronic (8) 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 He has been having chill and subjective fever for the past few days. He noted redness and swelling in his left foot yesterday. Swelling has increased over the past day. Pain increase is cramping and severe. Nothing makes it better or worse. Pain is severe. Past Medical History Past Medical History (Chronic Problems): Chronic Problems (Last Reviewed 10/23/17 @ 10:35 by Dagmar Strickland) Chronic atrial fibrillation (Chronic) angiolasty and stenting to BLE iliac arteries (Chronic ~08/04/12) History of left heart catheterization (Chronic ~12/04/16) Widely patent HERRERA and SVG grafts per [facility] 05/07/[address] [facility]; [facility] per Dr. Naylor @ [facility] History of coronary artery stent placement (Chronic ~12/23/06) [id number] anastomosis-LAD w/ Taxus 2.75 x 8 mm and POBA-PDA 12/23/2006 History of cardioversion (Chronic ~12/2016) Iron deficiency anemia due to chronic blood loss (Chronic) Gastric AVMs, September 2017 Secondary pulmonary arterial hypertension (Chronic) Atherosclerosis of coronary artery of [place] heart without angina pectoris ( Chronic) CABG x 2 HERRERA-LAD, SVG-OM 02/14/2006 [id number] anastomosis-LAD w/ Taxus 2.75 x 8 mm and POBA-PDA 12/23/2006 H/O coronary artery bypass surgery (Chronic ~02/14/06) CABG x 2 HERRERA-LAD, SVG-OM 02/14/[address] Fei Castillo, [facility] Medical History: Medical History (Last Reviewed 12/22/17 @ 06:26 by Prince Hua MD) GI bleed (Acute) K92.2 tsferred to [facility], transfused with 2 units PRBC's. Chronic atrial fibrillation (Chronic) I48.2 port placement (Acute) Secondary pulmonary arterial hypertension (Chronic) I27.21 Atherosclerosis of coronary artery of [place] heart without angina pectoris ( Chronic) I25.10 CABG x 2 HERRERA-LAD, SVG-OM 02/14/2006 [id number] anastomosis-LAD w/ Taxus 2.75 x 8 mm and POBA-PDA 12/23/2006 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 (Acute) C34.12 Chemotherapy induced neutropenia (Acute) D70.1, T45.1X5A Anemia (Acute) D64.9 COPD (chronic obstructive pulmonary disease) (Acute) J44.9 Dyspnea (Acute) R06.00 Diabetes (Acute) E11.9 Neuropathy (Acute) G62.9 Arthritis (Acute) M19.90 Obesity (Acute) E66.9 Alcohol dependence (Acute) F10.20 GERD (gastroesophageal reflux disease) (Acute) K21.9 DJD (degenerative joint disease) (Acute) M19.90 Vascular disease (Acute) I99.9 Renal disease (Acute) N28.9 Macular degeneration (Acute) H35.30 Arrhythmia (Acute) I49.9 Migraine (Acute) G43.909 Memory loss (Acute) R41.3 Hypotestosteronism (Acute) E34.9 Essential tremor (Acute) G25.0 Parkinsons (Acute) G20 Dementia (Acute) F03.90 HEBER (obstructive sleep apnea) (Acute) G47.33 Benign essential hypertension (Acute) I10 Hammertoes of both feet (Acute) M20.41, M20.42 Allergies No Known Allergies Allergy (Verified 12/21/17 21:32) Home Medications: Ambulatory Orders Medication Instructions Recorded Fenofibrate [Tricor] 145 mg PO DAILY 05/06/13 Folic Acid 1 mg PO DAILY@0800 05/06/13 Tiotropium [place] [Spiriva 18 MCG] 1 puff INHALATION DAILY 05/06/13 Duloxetine HCl 60 mg PO QHS 12/04/16 Pramipexole Di-HCl [Mirapex] 0.5 mg PO TID 12/04/16 Digoxin 250 mcg PO DAILY 02/27/17 furosemide 40 mg tablet 40 mg PO QODAY tab 09/25/17 metoprolol tartrate 25 mg tablet 25 mg PO QDAY #30 tab 09/25/17 pravastatin 40 mg tablet 40 mg PO QHS 09/25/17 valsartan 40 mg tablet 40 mg PO QDAY #30 tab 09/25/17 aspirin 81 mg tablet,delayed 81 mg PO QDAY 10/06/17 release cyanocobalamin (vit B-12) 1,000 1,000 mcg PO QDAY 10/20/17 mcg tablet docusate sodium 100 mg capsule 100 mg PO QDAY cap 10/20/17 gabapentin 600 mg tablet 600 mg PO BID tab 10/20/17 lidocaine-prilocaine 2.5 %-2.5 % 1 applic TOPICAL .COMPLEX PRN #30 g 10/20/17 topical cream potassium chloride ER 20 mEq 20 meq PO BID 10/20/17 tablet,extended release Budesonide [Pulmicort] 0.25 mg IH TID 10/23/17 Furosemide [Lasix] 20 mg PO QODAY 10/23/17 rivaroxaban 10 mg tablet 10 mg PO QDAY #90 tab 12/08/17 Surgical History: Surgical History (Last Reviewed 12/22/17 @ 06:26 by Prince Hua MD) angiolasty and stenting to BLE iliac arteries (Chronic) Onset Date: ~08/04/12 History of left heart catheterization (Chronic) Onset Date: ~12/04/16 Z98.890 Widely patent HERRERA and SVG grafts per [facility] 05/07/[address] [facility]; [facility] per Dr. Naylor @ [facility] History of coronary artery stent placement (Chronic) Onset Date: ~12/23/06 Z95.5 [id number] anastomosis-LAD w/ Taxus 2.75 x 8 mm and POBA-PDA 12/23/2006 Left VATS procedure with wedge resection KATIE (Acute) History of cardioversion (Chronic) Onset Date: ~12/2016 Z98.890 H/O coronary artery bypass surgery (Chronic) Onset Date: ~02/14/06 Z95.1 CABG x 2 HERRERA-LAD, SVG-OM 02/14/[address] Fei Castillo, [facility] S/P CABG x 2 (Acute) Z95.1 Psychiatric History: No pertinent psych hx Smoking Status: Former smoker Alcohol: None Drugs: None Review of Systems Constitutional: Denies: Chills, Fever, Weight Change HEENT: Denies: Head Aches, Sinus Congestion, Sinus Drainage Cardiovascular: Denies: Chest Pain, Palpitations Respiratory: Denies: Cough, Shortness of breath at rest, Sputum production Gastrointestinal: Denies: Abdominal Pain, Nausea, Vomiting Genitourinary: Denies: Dysuria Musculoskeletal: Denies: Joint Pain, Joint Tenderness Skin: Denies: Rash, Wounds Neurological: Denies: Numbness, Tingling, Focal weakness Psychiatric: Denies: Anxiety, Depression, Homicidal Ideations, Suicidal Ideations Hematologic/ Lymphatic: Denies: Easy Bruising, Easy Bleeding VTE Information - Inpt Only VTE Present on Admission: No VTE Mechan Device Prophylaxis: SCD's VTE Pharm Prophylaxis ordered?: Yes Patient Problems: Active and Suspected Problems (Last Reviewed 10/23/17 @ 10:35 by Dagmar Strickland) Cellulitis (Acute) - Physical Exam General: Alert, Oriented x3, Cooperative HEENT: Atraumatic, PERRLA, EOMI, Normocephalic Neck: Supple, No JVD, Negative Carotid Bruits Lungs: Clear to auscultation, Normal air movement Cardiovascular: Regular rate, No murmurs Abdomen: Bowel Sounds Present, Soft, Non Tender Extremities: Capillary Refill Less than 3 Seconds, Edema Skin: No rashes, No breakdown Musculoskeletal: No Tenderness to Palpation of Joints or Extremities Neurological: Cranial nerves II-XII grossly intact Psych/Mental Status: Normal Affect, Appropriate Vital Signs Temp Pulse Resp BP Pulse Ox 98.0 F 84 18 137/56 H 100 12/22/17 02:22 12/22/17 02:35 12/22/17 02:22 12/22/17 02:22 12/22/17 02:22 Oxygen Flow Rate (L/min) 3 Oxygen Delivery Method Nasal Cannula Weight: 123.972 kg Body Mass Index (BMI) 40.4 Laboratory Tests Past 24 Hrs 12/22/17 12/22/17 12/22/17 02:19 02:19 05:22 WBC Pending RBC Pending Hgb Pending Hct Pending MCV Pending MCH Pending MCHC Pending RDW Pending RDW Differential Pending Plt Count Pending Neut % (Auto) Pending Absolute Neuts (auto) Pending Total Counted Pending Sodium Potassium Chloride Carbon Dioxide Anion Gap BUN Creatinine Est GFR (MDRD) Af Amer Est GFR (MDRD) Non-Af BUN/Creatinine Ratio Glucose Hemoglobin A1c 5.6 Calcium Troponin I 0.059 H 12/22/17 05:22 WBC RBC Hgb Hct MCV MCH MCHC RDW RDW Differential Plt Count Neut % (Auto) Absolute Neuts (auto) Total Counted Sodium Pending Potassium Pending Chloride Pending Carbon Dioxide Pending Anion Gap Pending BUN Pending Creatinine Pending Est GFR (MDRD) Af Amer Pending Est GFR (MDRD) Non-Af Pending BUN/Creatinine Ratio Pending Glucose Pending Hemoglobin A1c Calcium Pending Troponin I Pending Assessment/Plan All Active Problems (Last Reviewed 10/23/17 @ 10:35 by Dagmar Strickland) Educational circumstance (Acute) Cellulitis (Acute) GI bleed (Acute) Left VATS procedure with wedge resection KATIE (Acute) port placement (Acute) Educational circumstance (Acute) Cancer of upper lobe of left lung (Acute) Antineoplastic chemotherapy induced anemia (Acute) Constipation (Acute) 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 (Acute) Chemotherapy induced neutropenia (Acute) Anemia (Acute) COPD (chronic obstructive pulmonary disease) (Acute) Dyspnea (Acute) Diabetes (Acute) Neuropathy (Acute) Arthritis (Acute) Obesity (Acute) Alcohol dependence (Acute) GERD (gastroesophageal reflux disease) (Acute) DJD (degenerative joint disease) (Acute) Vascular disease (Acute) Renal disease (Acute) Macular degeneration (Acute) Arrhythmia (Acute) Migraine (Acute) Memory loss (Acute) Hypotestosteronism (Acute) Essential tremor (Acute) Parkinsons (Acute) Dementia (Acute) HEBER (obstructive sleep apnea) (Acute) Benign essential hypertension (Acute) Hammertoes of both feet (Acute) S/P CABG x 2 (Acute) 72 year old male w/ h/o COPD, DMII, CAD, HTN, and afib admitted for cellulitis. 1) Cellulitis: Will start zosyn and vancomycin. Cultures pending. 2) Afib: Resume home meds. Monitor. 3) H/o lung cancer: Supportive care.
[2017-12-22 06:33] LABS: Anion Gap 7 (5-15); BUN 10 mg/dL (7-18); Calcium,Total 7.8 mg/dL (8.5-10.1); Chloride 109 mmol/L (98-107); Creatinine, Serum 0.91 mg/dL (0.70-1.30); EST Glomerular Filtration Rate 87 mL/min (>60); Est Glom Filt Rate - Afr Amer 105 mL/min (>60); Estimated Creatinine Clearance 73.38 ml/min; Glucose 110 mg/dL (74-106); Potassium 3.5 mmol/L (3.5-5.1); Sodium Level 145 mmol/L (136-145)
[2017-12-22 06:34] LABS: POSITIVE COUNT NO; POSITIVE DIFFERENTIAL NO; POSITIVE MORPHOLOGY NO
[2017-12-22] MEDS: Pramipexole Di-HCl 0.5 MG Tablet PO ×3 (06:38→22:00)
[2017-12-22] MEDS: Piperacil/Tazobactam 3.375 GM/50 ML ML IV (06:38)
[2017-12-22 06:50] LABS: Bedside Glucose 117 mg/dL (70-110)
[2017-12-22] MEDS: Budesonide Respules 0.5 MG/2 ML AMPUL.NEB. 0.25 MG INHALATION ×2 (07:19→19:15)
[2017-12-22] MEDS: Ipratropium 0.5 MG/2.5 ML SOLUTION INHALATION ×3 (07:19→19:14)
[2017-12-22] MEDS: Gabapentin 600 MG Tablet PO ×2 (08:20→22:02)
[2017-12-22] MEDS: Rivaroxaban 10 MG Tablet PO (08:20)
[2017-12-22] MEDS: Folic Acid 1 MG Tablet PO (08:20)
[2017-12-22] MEDS: Cyanocobalamin 500 MCG Tablet 1000 MCG PO (08:20)
[2017-12-22] MEDS: Aspirin E.C. 81 MG Tablet PO (08:20)
[2017-12-22] MEDS: Fenofibrate 145 MG Tablet PO (08:20)
[2017-12-22] MEDS: Docusate Sodium 100 MG Capsule PO (08:21)
[2017-12-22] MEDS: Digoxin 250 MCG Tablet PO (08:22)
[2017-12-22] MEDS: Metoprolol Tartrate 25 MG Tablet PO (08:22)
[2017-12-22] MEDS: VALSARTAN 40 MG TABLET PO (08:22)
--- NOTE | 2017-12-22 10:44 | PCM.PN.HOSP ---
Patient Problems: Active and Suspected Problems (Last Reviewed 12/22/17 @ 06:26 by Prince Hua MD) Cellulitis (Acute) Subjective: Patient is a 72-year-old male with a history of diabetes type 2, CAD, COPD, hypertension and A. fib. He was admitted with a complaint of chills and subjective fever for the past few days and had noticed redness and swelling in his left lower extremity 1 day prior to admission. Swelling had progressively increasing pain had worsened. He has been managed for cellulitis of the left lower extremity. Patient seen and examined. He complains of pain in his left lower extremity in the area of the cellulitis. He states that he had an injury to his left big toe which bled anything that may be the focus of infection. He does not remember how the injury happened. He denies any fever or chills, any cough or chest pain, any shortness of breath, abdominal pain, any diarrhea vomiting. He sees a foot doctor who cuts his toenails for him. Review of systems otherwise negative. Vitals/I&O's: Vital Signs Temp Pulse Resp BP Pulse Ox 97.2 F L 71 18 125/46 H 100 12/22/17 08:15 12/22/17 08:22 12/22/17 08:15 12/22/17 08:15 12/22/17 08:15 Oxygen Flow Rate (L/min) 2 Oxygen Delivery Method Nasal Cannula Weight: 273 lb 5 oz Body Mass Index (BMI) 40.4 General: Alert, Oriented x3, Cooperative, No apparent distress HEENT: Atraumatic, PERRLA, EOMI, Normocephalic Oral: Moist Mucosa Neck: Supple, No JVD, Negative Carotid Bruits Lungs: Clear to auscultation, Normal air movement, No rhonchi, No wheeze, No rales Cardiovascular: Regular rate, Regular Rhythm, Normal S1, Normal S2, No murmurs Abdomen: Bowel Sounds Present, Soft, Non Tender, Non-Distended, No Hepato-splenomegaly Extremities: Diminished Peripheral Pulses - Diminished DP and PT pulses bilaterally. Toes on right lower extremity are noted to be cold to touch and a dusky blue color which she states is chronic after he had bilateral external iliac stents placed., - - Left lower extremity examination:. Has about a 10 x 10 cm area of redness tenderness and mild swelling over his left anterior leg. Also has a smaller about 5 x 8 cm area of erythema over the left inner thigh. Areas are demarcated and havent extended beyond area of demarcation. Musculoskeletal: No Tenderness to Palpation of Joints or Extremities Lymphatic: No Cervical, Supraclavicular, or Inguinal Adenopathy Neurological: Cranial nerves II-XII grossly intact Psych/Mental Status: Normal Affect, Appropriate, Alert and oriented to time, place, person, mood and affect Laboratory Results 12/22/17 02:19: Troponin I 0.059 H 12/22/17 02:19: Hemoglobin A1c 5.6 12/22/17 05:22: WBC 11.0, RBC 3.42 L, Hgb 9.6 L, Hct 31.1 L, MCV 90.9, MCH 28.1, MCHC 30.9 L, RDW 15.9 H, RDW Differential 52.9 H, Plt Count 207, MPV 9.8, Immature Gran % (Auto) 0.100, Neut % (Auto) 83.1 H, Lymph % (Auto) 6.8 L, [place] % (Auto) 9.6, Eos % (Auto) 0.3, Baso % (Auto) 0.1, Absolute Neuts (auto) 9.2 H, Absolute Lymphs (auto) 0.75 L, Total Counted Not Reportable 12/22/17 05:22: Sodium 145, Potassium 3.5, Chloride 109 H, Carbon Dioxide 29.0, Anion Gap 7, BUN 10, Creatinine 0.91, Estim Creat Clear Calc 73.38, Est GFR (MDRD) Af Amer 105, Est GFR (MDRD) Non-Af 87, BUN/Creatinine Ratio 11.0, Glucose 110 H, Calcium 7.8 L, Troponin I 0.051 H 12/22/17 06:43: POC Glucose 117 H Current Medications Aspirin (Ecotrin) 81 mg PO DAILYCM NATALIE Last Admin: 12/22/17 08:20 Dose: 81 mg Budesonide (Pulmicort Aerosol) 0.25 mg INHALATION Q12H.RT NATALIE Last Admin: 12/22/17 07:19 Dose: 0.25 mg Cyanocobalamin (Vitamin B12) 1,000 mcg PO DAILY NATAL[facility] Last Admin: 12/22/17 08:20 Dose: 1,000 mcg Dextrose (D50w Syringe) 0 gm IV X1 PRN; Protocol PRN Reason: Hypoglycemia Digoxin (Lanoxin) 250 mcg PO DAILY [facility] Last Admin: 12/22/17 08:22 Dose: 250 mcg Docusate Sodium (Colace) 100 mg PO DAILY [facility] Last Admin: 12/22/17 08:21 Dose: 100 mg Duloxetine HCl (Cymbalta) 60 mg PO QHS [facility] Fenofibrate (Tricor) 145 mg PO DAILY [facility] Last Admin: 12/22/17 08:20 Dose: 145 mg Folic Acid (Folic Acid) 1 mg PO DAILY@0800 [facility] Last Admin: 12/22/17 08:20 Dose: 1 mg Furosemide (Lasix) 20 mg PO QODAY [facility] Furosemide (Lasix) 40 mg PO QODAY [facility] Gabapentin (Neurontin) 600 mg PO BID [facility] Last Admin: 12/22/17 08:20 Dose: 600 mg Glucagon () 1 mg IM .X1 PRN PRN Reason: Hypoglycemia Piperacillin Sod/Tazobactam Sod (Zosyn) 3.375 gm in 50 mls @ 12.5 mls/hr IV Q8 [facility] Last Admin: 12/22/17 06:38 Dose: 12.5 mls/hr Vancomycin HCl 1,500 mg/ (Sodium Chloride) 530 mls @ 250 mls/hr IV Q12H [facility] Insulin Human Lispro (Humalog Kwikpen (Bkc)) 0 unit SQ TIDAC [facility] PRN Reason: Protocol Last Admin: 12/22/17 06:43 Dose: Not Given Ipratropium [place] (Atrovent) 0.5 mg INHALATION Q6HWA.RT [facility] Last Admin: 12/22/17 07:19 Dose: 0.5 mg Magnesium Hydroxide (Milk Of Magnesia) 30 ml PO DAILY PRN PRN PRN Reason: Constipation Metoprolol Tartrate (Lopressor (Beta Taisha)) 25 mg PO DAILY [facility] Last Admin: 12/22/17 08:22 Dose: 25 mg Oxycodone HCl (Oxyir) 5 mg PO Q4H PRN PRN PRN Reason: Moderate Pain (pain scale 4-5) Potassium Chloride (K-Dur) 20 meq PO BID [facility] Last Admin: 12/22/17 08:20 Dose: 20 meq Pramipexole Dihydrochloride (Mirapex) 0.5 mg PO TID [facility] Last Admin: 12/22/17 06:38 Dose: 0.5 mg Pravastatin Sodium (Pravachol) 40 mg PO QHS [facility] Rivaroxaban (Xarelto) 10 mg PO DAILY [facility] Last Admin: 12/22/17 08:20 Dose: 10 mg Sodium Chloride () 5 - 30 ml IV UD PRN PRN Reason: SALINE FLUSH Last Admin: 12/22/17 03:01 Dose: 10 ml Valsartan (Diovan) 40 mg PO DAILY [facility] Last Admin: 12/22/17 08:22 Dose: 40 mg Medical Necessity - Tobacco Use Smoking Status: Former smoker Assessment/Plan All Active Problems (Last Reviewed 12/22/17 @ 06:26 by Prince Hua MD) Educational circumstance (Acute) Cellulitis (Acute) GI bleed (Acute) Left VATS procedure with wedge resection KATIE (Acute) port placement (Acute) Educational circumstance (Acute) Cancer of upper lobe of left lung (Acute) Antineoplastic chemotherapy induced anemia (Acute) Constipation (Acute) 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 (Acute) Chemotherapy induced neutropenia (Acute) Anemia (Acute) COPD (chronic obstructive pulmonary disease) (Acute) Dyspnea (Acute) Diabetes (Acute) Neuropathy (Acute) Arthritis (Acute) Obesity (Acute) Alcohol dependence (Acute) GERD (gastroesophageal reflux disease) (Acute) DJD (degenerative joint disease) (Acute) Vascular disease (Acute) Renal disease (Acute) Macular degeneration (Acute) Arrhythmia (Acute) Migraine (Acute) Memory loss (Acute) Hypotestosteronism (Acute) Essential tremor (Acute) Parkinsons (Acute) Dementia (Acute) HEBER (obstructive sleep apnea) (Acute) Benign essential hypertension (Acute) Hammertoes of both feet (Acute) S/P CABG x 2 (Acute) 72-year-old male presenting with the 1 day history of left lower extremity swelling and pain 1.Cellulitis of the LLE Came in with a temperature of 100.4 Fahrenheit which is now resolved white cell count was 16.8 on admission and trended down to 11. On IV vancomycin and Zosyn. source of infection likely the healing ulcer over his left big toe. on IV vancomycin and IV zosyn. Will dc zosyn and continue with IV vancomycin for now as patient looks stable will await blood and urine cultures keep LLE elevated 2. diabetes mellitus: A1C 5.6. on insulin sliding scale. Accuchecks ACHS 4. HTN: controlled. On valsartan and metoprolol. 5. A. fib: On metoprolol. Also on Xarelto. 6. Prophylaxis: On Xarelto for A. fib This note was generated with [employer] software. It may contain incorrect words, spelling, and punctuation that were not noted in checking the note before signing. Code Visit OBSV E&M: 16069 Subsequent observation care L2
--- NOTE | 2017-12-22 10:54 | PN_ITS ---
Patient Problems: Active and Suspected Problems (Last Reviewed 12/22/17 @ 06:26 by Prince Hua MD) Cellulitis (Acute) Subjective: Patient is a 72-year-old male with a history of diabetes type 2, CAD, COPD, hypertension and A. fib. He was admitted with a complaint of chills and subjective fever for the past few days and had noticed redness and swelling in his left lower extremity 1 day prior to admission. Swelling had progressively increasing pain had worsened. He has been managed for cellulitis of the left lower extremity. Patient seen and examined. He complains of pain in his left lower extremity in the area of the cellulitis. He states that he had an injury to his left big toe which bled anything that may be the focus of infection. He does not remember how the injury happened. He denies any fever or chills, any cough or chest pain, any shortness of breath, abdominal pain, any diarrhea vomiting. He sees a foot doctor who cuts his toenails for him. Review of systems otherwise negative. Vitals/I&O's: Vital Signs Temp Pulse Resp BP Pulse Ox 97.2 F L 71 18 125/46 H 100 12/22/17 08:15 12/22/17 08:22 12/22/17 08:15 12/22/17 08:15 12/22/17 08:15 Oxygen Flow Rate (L/min) 2 Oxygen Delivery Method Nasal Cannula Weight: 273 lb 5 oz Body Mass Index (BMI) 40.4 General: Alert, Oriented x3, Cooperative, No apparent distress HEENT: Atraumatic, PERRLA, EOMI, Normocephalic Oral: Moist Mucosa Neck: Supple, No JVD, Negative Carotid Bruits Lungs: Clear to auscultation, Normal air movement, No rhonchi, No wheeze, No rales Cardiovascular: Regular rate, Regular Rhythm, Normal S1, Normal S2, No murmurs Abdomen: Bowel Sounds Present, Soft, Non Tender, Non-Distended, No Hepato- splenomegaly Extremities: Diminished Peripheral Pulses - Diminished DP and PT pulses bilaterally. Toes on right lower extremity are noted to be cold to touch and a dusky blue color which she states is chronic after he had bilateral external iliac stents placed., - - Left lower extremity examination:. Has about a 10 x 10 cm area of redness tenderness and mild swelling over his left anterior leg. Also has a smaller about 5 x 8 cm area of erythema over the left inner thigh. Areas are demarcated and havent extended beyond area of demarcation. Musculoskeletal: No Tenderness to Palpation of Joints or Extremities Lymphatic: No Cervical, Supraclavicular, or Inguinal Adenopathy Neurological: Cranial nerves II-XII grossly intact Psych/Mental Status: Normal Affect, Appropriate, Alert and oriented to time, place, person, mood and affect Laboratory Results 12/22/17 02:19: Troponin I 0.059 H 12/22/17 02:19: Hemoglobin A1c 5.6 12/22/17 05:22: WBC 11.0, RBC 3.42 L, Hgb 9.6 L, Hct 31.1 L, MCV 90.9, MCH 28.1 , MCHC 30.9 L, RDW 15.9 H, RDW Differential 52.9 H, Plt Count 207, MPV 9.8, Immature Gran % (Auto) 0.100, Neut % (Auto) 83.1 H, Lymph % (Auto) 6.8 L, [place] % (Auto) 9.6, Eos % (Auto) 0.3, Baso % (Auto) 0.1, Absolute Neuts (auto) 9.2 H, Absolute Lymphs (auto) 0.75 L, Total Counted Not Reportable 12/22/17 05:22: Sodium 145, Potassium 3.5, Chloride 109 H, Carbon Dioxide 29.0, Anion Gap 7, BUN 10, Creatinine 0.91, Estim Creat Clear Calc 73.38, Est GFR ( MDRD) Af Amer 105, Est GFR (MDRD) Non-Af 87, BUN/Creatinine Ratio 11.0, Glucose 110 H, Calcium 7.8 L, Troponin I 0.051 H 12/22/17 06:43: POC Glucose 117 H Current Medications Aspirin (Ecotrin) 81 mg PO DAILYCM NATALIE Last Admin: 12/22/17 08:20 Dose: 81 mg Budesonide (Pulmicort Aerosol) 0.25 mg INHALATION Q12H.RT [facility] Last Admin: 12/22/17 07:19 Dose: 0.25 mg Cyanocobalamin (Vitamin B12) 1,000 mcg PO DAILY [facility] Last Admin: 12/22/17 08:20 Dose: 1,000 mcg Dextrose (D50w Syringe) 0 gm IV X1 PRN; Protocol PRN Reason: Hypoglycemia Digoxin (Lanoxin) 250 mcg PO DAILY [facility] Last Admin: 12/22/17 08:22 Dose: 250 mcg Docusate Sodium (Colace) 100 mg PO DAILY [facility] Last Admin: 12/22/17 08:21 Dose: 100 mg Duloxetine HCl (Cymbalta) 60 mg PO QHS [facility] Fenofibrate (Tricor) 145 mg PO DAILY [facility] Last Admin: 12/22/17 08:20 Dose: 145 mg Folic Acid (Folic Acid) 1 mg PO DAILY@0800 [facility] Last Admin: 12/22/17 08:20 Dose: 1 mg Furosemide (Lasix) 20 mg PO QODAY [facility] Furosemide (Lasix) 40 mg PO QODAY [facility] Gabapentin (Neurontin) 600 mg PO BID [facility] Last Admin: 12/22/17 08:20 Dose: 600 mg Glucagon () 1 mg IM .X1 PRN PRN Reason: Hypoglycemia Piperacillin Sod/Tazobactam Sod (Zosyn) 3.375 gm in 50 mls @ 12.5 mls/hr IV Q8 [facility] Last Admin: 12/22/17 06:38 Dose: 12.5 mls/hr Vancomycin HCl 1,500 mg/ (Sodium Chloride) 530 mls @ 250 mls/hr IV Q12H [facility] Insulin Human Lispro (Humalog Kwikpen (Bkc)) 0 unit SQ TIDAC [facility] PRN Reason: Protocol Last Admin: 12/22/17 06:43 Dose: Not Given Ipratropium [place] (Atrovent) 0.5 mg INHALATION Q6HWA.RT [facility] Last Admin: 12/22/17 07:19 Dose: 0.5 mg Magnesium Hydroxide (Milk Of Magnesia) 30 ml PO DAILY PRN PRN PRN Reason: Constipation Metoprolol Tartrate (Lopressor (Beta Taisha)) 25 mg PO DAILY [facility] Last Admin: 12/22/17 08:22 Dose: 25 mg Oxycodone HCl (Oxyir) 5 mg PO Q4H PRN PRN PRN Reason: Moderate Pain (pain scale 4-5) Potassium Chloride (K-Dur) 20 meq PO BID [facility] Last Admin: 12/22/17 08:20 Dose: 20 meq Pramipexole Dihydrochloride (Mirapex) 0.5 mg PO TID [facility] Last Admin: 12/22/17 06:38 Dose: 0.5 mg Pravastatin Sodium (Pravachol) 40 mg PO QHS [facility] Rivaroxaban (Xarelto) 10 mg PO DAILY [facility] Last Admin: 12/22/17 08:20 Dose: 10 mg Sodium Chloride () 5 - 30 ml IV UD PRN PRN Reason: SALINE FLUSH Last Admin: 12/22/17 03:01 Dose: 10 ml Valsartan (Diovan) 40 mg PO DAILY [facility] Last Admin: 12/22/17 08:22 Dose: 40 mg Medical Necessity - Tobacco Use Smoking Status: Former smoker Assessment/Plan All Active Problems (Last Reviewed 12/22/17 @ 06:26 by Prince Hua MD) Educational circumstance (Acute) Cellulitis (Acute) GI bleed (Acute) Left VATS procedure with wedge resection KATIE (Acute) port placement (Acute) Educational circumstance (Acute) Cancer of upper lobe of left lung (Acute) Antineoplastic chemotherapy induced anemia (Acute) Constipation (Acute) 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 (Acute) Chemotherapy induced neutropenia (Acute) Anemia (Acute) COPD (chronic obstructive pulmonary disease) (Acute) Dyspnea (Acute) Diabetes (Acute) Neuropathy (Acute) Arthritis (Acute) Obesity (Acute) Alcohol dependence (Acute) GERD (gastroesophageal reflux disease) (Acute) DJD (degenerative joint disease) (Acute) Vascular disease (Acute) Renal disease (Acute) Macular degeneration (Acute) Arrhythmia (Acute) Migraine (Acute) Memory loss (Acute) Hypotestosteronism (Acute) Essential tremor (Acute) Parkinsons (Acute) Dementia (Acute) HEBER (obstructive sleep apnea) (Acute) Benign essential hypertension (Acute) Hammertoes of both feet (Acute) S/P CABG x 2 (Acute) 72-year-old male presenting with the 1 day history of left lower extremity swelling and pain 1.Cellulitis of the LLE * Came in with a temperature of 100.4 Fahrenheit which is now resolved * white cell count was 16.8 on admission and trended down to 11. * On IV vancomycin and Zosyn. * source of infection likely the healing ulcer over his left big toe. * on IV vancomycin and IV zosyn. Will dc zosyn and continue with IV vancomycin for now as patient looks stable * will await blood and urine cultures * keep LLE elevated * 2. diabetes mellitus: A1C 5.6. on insulin sliding scale. Accuchecks ACHS 4. HTN: controlled. On valsartan and metoprolol. 5. A. fib: On metoprolol. Also on Xarelto. 6. Prophylaxis: On Xarelto for A. fib This note was generated with [employer] software. It may contain incorrect words, spelling, and punctuation that were not noted in checking the note before signing. Code Visit OBSV E&M: 26364 Subsequent observation care L2
[2017-12-22] MEDS: Furosemide 20 MG Tablet PO (11:05)
[2017-12-22 11:40] LABS: Bedside Glucose 134 mg/dL (70-110)
--- NOTE | 2017-12-22 13:14 | CHAPLAIN ---
Type of Pastoral Visit _x__ Initial Visit ___ Follow-up Visit ___ On-call Visit ___ General Patient Visit ___ Spiritual Assessment ___ Family Conference ___ Bereavement ___ Rapid Response ___ Code Blue ___ Other (describe below) Pastoral Care Referral From _x__ Patient ___ Family ___ Nurse ___ Physician ___ Psychologist Private Practice ___ Wet Mix Operator ___ Other (describe below) Sacrament/Intervention _x__ Active listening ___ Anointing ___ Sikhism ___ Bereavement ___ Communion _x__ Claudia exploration ___ _x__ Life review _x_ Prayer ___ Reconciliation ___ Sacrament of Sick _x__ Supportive presence ___ Wedding ___ Other (describe below) Pastoral Comments patient is eager to talk about his new claudia journey and plans to join a congregation; pt says he is just so thankful for the many prayers that have resulted in better health; pt said his other concern is for a granddaughter who has needs; pt open to future visits for spiritual care and prayer
[2017-12-22 16:45] LABS: Bedside Glucose 81 mg/dL (70-110)
[2017-12-22] MEDS: Zolpidem Tartrate 5 MG Tablet PO (22:00)
[2017-12-22] MEDS: DULoxetine Hcl 60 MG Capsule PO (22:01)
[2017-12-22] MEDS: Pravastatin 40 MG Tablet PO (22:02)
[2017-12-22] MEDS: oxyCODONE 5 MG Tablet PO (22:08)
[2017-12-22] MEDS: Fluticasone 0.05% 1 SPRAY NASAL.SRY NASAL (22:08)
[2017-12-23] VITALS (9 sets, daily range): BP systolic 125–151; BP diastolic 69–77; PULSE 70–103; RESP 16–22; TEMP 36.6–36.9; O2SAT 94–99
[2017-12-23] MEDS: Pramipexole Di-HCl 0.5 MG Tablet PO ×3 (06:21→21:39)
[2017-12-23 06:30] LABS: Bedside Glucose 104 mg/dL (70-110)
[2017-12-23] MEDS: Ipratropium 0.5 MG/2.5 ML SOLUTION INHALATION ×3 (07:29→18:58)
[2017-12-23] MEDS: Budesonide Respules 0.5 MG/2 ML AMPUL.NEB. 0.25 MG INHALATION ×2 (07:30→18:58)
[2017-12-23] MEDS: Folic Acid 1 MG Tablet PO (07:48)
[2017-12-23] MEDS: VALSARTAN 40 MG TABLET PO (07:48)
[2017-12-23] MEDS: Fluticasone 0.05% 1 SPRAY NASAL.SRY NASAL ×2 (07:48→21:37)
[2017-12-23] MEDS: Aspirin E.C. 81 MG Tablet PO (07:48)
[2017-12-23] MEDS: Docusate Sodium 100 MG Capsule PO (07:48)
[2017-12-23] MEDS: Furosemide 40 MG Tablet PO (07:49)
[2017-12-23] MEDS: Cyanocobalamin 500 MCG Tablet 1000 MCG PO (07:50)
[2017-12-23] MEDS: Gabapentin 600 MG Tablet PO ×2 (07:50→21:38)
[2017-12-23] MEDS: Metoprolol Tartrate 25 MG Tablet PO (07:50)
[2017-12-23] MEDS: Fenofibrate 145 MG Tablet PO (07:50)
[2017-12-23] MEDS: Digoxin 250 MCG Tablet PO (07:51)
[2017-12-23] MEDS: Rivaroxaban 10 MG Tablet PO (07:51)
[2017-12-23 08:25] LABS: Absolute Lymphocyte Count 0.89 X10^3/ul (0.83-4.51); Absolute Neutrophil Count 7.4 X10^3/uL (2.0-7.7); Basophil# 0.02 X10^3/uL; Basophil% 0.2 % (0-1); Eosinophil# 0.27 X10^3/uL; Eosinophils% 2.9 % (0-5); Hematocrit 31.7 % (40-54); Hemoglobin 9.5 g/dl (13.0-16.5); Lymphocyte # 0.89 X10^3/ul (4.0); Lymphocyte % 9.5 % (19-41); Mean Corpuscular Hgb 27.5 pg (27.0-32.0); Mean Corpuscular Volume 91.9 fL (80-94); Mean Platelet Vol. 9.9 fl (6.2-12.0); Monocyte# 0.77 X10^3/uL; Monocyte% 8.2 % (0-10); Neutrophil % 79.1 % (47-70); Platelet Count 211 K/mm3 (150-450); RBC Distribution Width CV 16.1 % (11.6-14.6); RBC Distribution Width SD 54.3 fl (35.1-43.9); Red Blood Count 3.45 M/mm3 (4.6-6.2); White Blood Count 9.4 K/mm3 (4.4-11.0)
[2017-12-23 08:26] LABS: POSITIVE COUNT NO; POSITIVE DIFFERENTIAL NO; POSITIVE MORPHOLOGY NO
[2017-12-23 09:09] LABS: Anion Gap 8 (5-15); BUN 9 mg/dL (7-18); BUN/Creat Ratio 11.7 RATIO (10-20); Calcium,Total 8.1 mg/dL (8.5-10.1); Chloride 109 mmol/L (98-107); Creatinine, Serum 0.77 mg/dL (0.70-1.30); EST Glomerular Filtration Rate 105 mL/min (>60); Est Glom Filt Rate - Afr Amer 127 mL/min (>60); Estimated Creatinine Clearance 66.77 ml/min; Glucose 99 mg/dL (74-106); Potassium 3.9 mmol/L (3.5-5.1); Sodium Level 143 mmol/L (136-145)
--- NOTE | 2017-12-23 10:37 | PCM.PN.HOSP ---
Patient Problems: Active and Suspected Problems (Last Reviewed 12/22/17 @ 06:26 by Prince Hua MD) Cellulitis (Acute) Subjective: Seen and examined. Has no complaints. Feels well and left lower extremity swelling and pain is getting better. Denies any fever chills, any cough or chest pain, any shortness of breath, abdominal pain, any diarrhea or vomiting. Review of systems otherwise negative. Vitals/I&O's: Vital Signs Temp Pulse Resp BP Pulse Ox 97.9 F 93 18 138/76 H 96 12/23/17 07:43 12/23/17 07:50 12/23/17 07:43 12/23/17 07:43 12/23/17 07:43 Oxygen Flow Rate (L/min) 4 Oxygen Delivery Method Room Air Weight: 273 lb 5 oz Body Mass Index (BMI) 40.4 Intake and Output for Last 24 Hours 12/21/17 12/22/17 12/23/17 23:59 23:59 23:59 Intake Total 1304 / 1304 Output Total 375 / 375 675 / 675 Balance 929 / 929 -675 / -675 General: Alert, Oriented x3, Cooperative, No apparent distress HEENT: Atraumatic, PERRLA, EOMI, Normocephalic Oral: Moist Mucosa Neck: Supple, No JVD, Negative Carotid Bruits Lungs: Clear to auscultation, Normal air movement, No rhonchi, No wheeze, No rales Cardiovascular: Regular rate, Regular Rhythm, Normal S1, Normal S2, No murmurs Abdomen: Bowel Sounds Present, Soft, Non Tender, Non-Distended, No Hepato-splenomegaly Extremities: No clubbing, No cyanosis, No edema, Capillary Refill Less than 3 Seconds, - - erythema on LLE is improving; tenderness is getting better and edema has gone down significantly. Skin: No rashes, No breakdown Musculoskeletal: No Tenderness to Palpation of Joints or Extremities Lymphatic: No Cervical, Supraclavicular, or Inguinal Adenopathy Neurological: Cranial nerves II-XII grossly intact, Neuro grossly intact, Motor Exam 5/5 strength throughout Psych/Mental Status: Normal Affect, Appropriate, Alert and oriented to time, place, person, mood and affect Laboratory Results 12/22/17 11:04: POC Glucose 134 H 12/22/17 16:22: POC Glucose 81 07/10/18 06:20: POC Glucose 104 12/23/17 08:06: WBC 9.4, RBC 3.45 L, Hgb 9.5 L, Hct 31.7 L, MCV 91.9, MCH 27.5, MCHC 30.0 L, RDW 16.1 H, RDW Differential 54.3 H, Plt Count 211, MPV 9.9, Immature Gran % (Auto) 0.100, Neut % (Auto) 79.1 H, Lymph % (Auto) 9.5 L, [place] % (Auto) 8.2, Eos % (Auto) 2.9, Baso % (Auto) 0.2, Absolute Neuts (auto) 7.4, Absolute Lymphs (auto) 0.89, Total Counted Not Reportable 12/23/17 08:06: Sodium 143, Potassium 3.9, Chloride 109 H, Carbon Dioxide 26.0, Anion Gap 8, BUN 9, Creatinine 0.77, Estim Creat Clear Calc 66.77, Est GFR (MDRD) Af Amer 127, Est GFR (MDRD) Non-Af 105, BUN/Creatinine Ratio 11.7, Glucose 99, Calcium 8.1 L Current Medications Aspirin (Ecotrin) 81 mg PO DAILYCM NATALIE Last Admin: 12/23/17 07:48 Dose: 81 mg Budesonide (Pulmicort Aerosol) 0.25 mg INHALATION Q12H.RT NATALIE Last Admin: 12/23/17 07:30 Dose: 0.25 mg Cyanocobalamin (Vitamin B12) 1,000 mcg PO DAILY [facility] Last Admin: 12/23/17 07:50 Dose: 1,000 mcg Dextrose (D50w Syringe) 0 gm IV X1 PRN; Protocol PRN Reason: Hypoglycemia Digoxin (Lanoxin) 250 mcg PO DAILY [facility] Last Admin: 12/23/17 07:51 Dose: 250 mcg Docusate Sodium (Colace) 100 mg PO DAILY [facility] Last Admin: 12/23/17 07:48 Dose: 100 mg Duloxetine HCl (Cymbalta) 60 mg PO QHS [facility] Last Admin: 12/22/17 22:01 Dose: 60 mg Fenofibrate (Tricor) 145 mg PO DAILY [facility] Last Admin: 12/23/17 07:50 Dose: 145 mg Fluticasone Propionate (Flonase Nasal [place]) 1 spray NASAL BID NATALIE Last Admin: 12/23/17 07:48 Dose: 1 spray Folic Acid (Folic Acid) 1 mg PO DAILY@0800 [facility] Last Admin: 12/23/17 07:48 Dose: 1 mg Furosemide (Lasix) 20 mg PO QODAY [facility] Last Admin: 12/22/17 11:05 Dose: 20 mg Furosemide (Lasix) 40 mg PO QODAY [facility] Last Admin: 12/23/17 07:49 Dose: 40 mg Gabapentin (Neurontin) 600 mg PO BID [facility] Last Admin: 12/23/17 07:50 Dose: 600 mg Glucagon () 1 mg IM .X1 PRN PRN Reason: Hypoglycemia Vancomycin HCl 1,500 mg/ (Sodium Chloride) 530 mls @ 250 mls/hr IV Q12H [facility] Last Admin: 12/23/17 02:35 Dose: 250 mls/hr Insulin Human Lispro (Humalog Kwikpen (Bkc)) 0 unit SQ TIDAC NATALIE PRN Reason: Protocol Last Admin: 12/23/17 06:21 Dose: Not Given Ipratropium [place] (Atrovent) 0.5 mg INHALATION Q6HWA.RT [facility] Last Admin: 12/23/17 07:29 Dose: 0.5 mg Magnesium Hydroxide (Milk Of Magnesia) 30 ml PO DAILY PRN PRN PRN Reason: Constipation Metoprolol Tartrate (Lopressor (Beta Taisha)) 25 mg PO DAILY [facility] Last Admin: 12/23/17 07:50 Dose: 25 mg Oxycodone HCl (Oxyir) 5 mg PO Q4H PRN PRN PRN Reason: Moderate Pain (pain scale 4-5) Last Admin: 12/22/17 22:08 Dose: 5 mg Potassium Chloride (K-Dur) 20 meq PO BID [facility] Last Admin: 12/23/17 07:49 Dose: 20 meq Pramipexole Dihydrochloride (Mirapex) 0.5 mg PO TID [facility] Last Admin: 12/23/17 06:21 Dose: 0.5 mg Pravastatin Sodium (Pravachol) 40 mg PO QHS [facility] Last Admin: 12/22/17 22:02 Dose: 40 mg Rivaroxaban (Xarelto) 10 mg PO DAILY [facility] Last Admin: 12/23/17 07:51 Dose: 10 mg Sodium Chloride () 5 - 30 ml IV UD PRN PRN Reason: SALINE FLUSH Last Admin: 12/22/17 03:01 Dose: 10 ml Valsartan (Diovan) 40 mg PO DAILY [facility] Last Admin: 12/23/17 07:48 Dose: 40 mg Medical Necessity - Tobacco Use Smoking Status: Former smoker Assessment/Plan All Active Problems (Last Reviewed 12/22/17 @ 06:26 by Prince Hua MD) Educational circumstance (Acute) Cellulitis (Acute) GI bleed (Acute) Left VATS procedure with wedge resection KATIE (Acute) port placement (Acute) Educational circumstance (Acute) Cancer of upper lobe of left lung (Acute) Antineoplastic chemotherapy induced anemia (Acute) Constipation (Acute) 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 (Acute) Chemotherapy induced neutropenia (Acute) Anemia (Acute) COPD (chronic obstructive pulmonary disease) (Acute) Dyspnea (Acute) Diabetes (Acute) Neuropathy (Acute) Arthritis (Acute) Obesity (Acute) Alcohol dependence (Acute) GERD (gastroesophageal reflux disease) (Acute) DJD (degenerative joint disease) (Acute) Vascular disease (Acute) Renal disease (Acute) Macular degeneration (Acute) Arrhythmia (Acute) Migraine (Acute) Memory loss (Acute) Hypotestosteronism (Acute) Essential tremor (Acute) Parkinsons (Acute) Dementia (Acute) HEBER (obstructive sleep apnea) (Acute) Benign essential hypertension (Acute) Hammertoes of both feet (Acute) S/P CABG x 2 (Acute) 72-year-old male presenting with the 1 day history of left lower extremity swelling and pain 1.Cellulitis of the LLE resolving. Swelling on LLE is much better. on IV vancomycin. IV zosyn dced. white cell count remains down; is 9.4 today blood cultures still pending. for likely dc tomorrow. 2. diabetes mellitus: A1C 5.6. on insulin sliding scale. Accuchecks ACHS 4. HTN: controlled. On valsartan and metoprolol. 5. A. fib: On metoprolol. Also on Xarelto. 6. Prophylaxis: On Xarelto for A. fib This note was generated with [employer] software. It may contain incorrect words, spelling, and punctuation that were not noted in checking the note before signing. Code Visit Inpatient E&M: 84672 Subs Hosp L2
--- NOTE | 2017-12-23 10:50 | PN_ITS ---
Patient Problems: Active and Suspected Problems (Last Reviewed 12/22/17 @ 06:26 by Prince Hua MD) Cellulitis (Acute) Subjective: Seen and examined. Has no complaints. Feels well and left lower extremity swelling and pain is getting better. Denies any fever chills, any cough or chest pain, any shortness of breath, abdominal pain, any diarrhea or vomiting. Review of systems otherwise negative. Vitals/I&O's: Vital Signs Temp Pulse Resp BP Pulse Ox 97.9 F 93 18 138/76 H 96 12/23/17 07:43 12/23/17 07:50 12/23/17 07:43 12/23/17 07:43 12/23/17 07:43 Oxygen Flow Rate (L/min) 4 Oxygen Delivery Method Room Air Weight: 273 lb 5 oz Body Mass Index (BMI) 40.4 Intake and Output for Last 24 Hours 12/21/17 12/22/17 12/23/17 23:59 23:59 23:59 Intake Total 1304 / 1304 Output Total 375 / 375 675 / 675 Balance 929 / 929 -675 / -675 General: Alert, Oriented x3, Cooperative, No apparent distress HEENT: Atraumatic, PERRLA, EOMI, Normocephalic Oral: Moist Mucosa Neck: Supple, No JVD, Negative Carotid Bruits Lungs: Clear to auscultation, Normal air movement, No rhonchi, No wheeze, No rales Cardiovascular: Regular rate, Regular Rhythm, Normal S1, Normal S2, No murmurs Abdomen: Bowel Sounds Present, Soft, Non Tender, Non-Distended, No Hepato- splenomegaly Extremities: No clubbing, No cyanosis, No edema, Capillary Refill Less than 3 Seconds, - - erythema on LLE is improving; tenderness is getting better and edema has gone down significantly. Skin: No rashes, No breakdown Musculoskeletal: No Tenderness to Palpation of Joints or Extremities Lymphatic: No Cervical, Supraclavicular, or Inguinal Adenopathy Neurological: Cranial nerves II-XII grossly intact, Neuro grossly intact, Motor Exam 5/5 strength throughout Psych/Mental Status: Normal Affect, Appropriate, Alert and oriented to time, place, person, mood and affect Laboratory Results 12/22/17 11:04: POC Glucose 134 H 12/22/17 16:22: POC Glucose 81 07/10/18 06:20: POC Glucose 104 12/23/17 08:06: WBC 9.4, RBC 3.45 L, Hgb 9.5 L, Hct 31.7 L, MCV 91.9, MCH 27.5, MCHC 30.0 L, RDW 16.1 H, RDW Differential 54.3 H, Plt Count 211, MPV 9.9, Immature Gran % (Auto) 0.100, Neut % (Auto) 79.1 H, Lymph % (Auto) 9.5 L, [place] % (Auto) 8.2, Eos % (Auto) 2.9, Baso % (Auto) 0.2, Absolute Neuts (auto) 7.4, Absolute Lymphs (auto) 0.89, Total Counted Not Reportable 12/23/17 08:06: Sodium 143, Potassium 3.9, Chloride 109 H, Carbon Dioxide 26.0, Anion Gap 8, BUN 9, Creatinine 0.77, Estim Creat Clear Calc 66.77, Est GFR (MDRD ) Af Amer 127, Est GFR (MDRD) Non-Af 105, BUN/Creatinine Ratio 11.7, Glucose 99 , Calcium 8.1 L Current Medications Aspirin (Ecotrin) 81 mg PO DAILYCM NATALIE Last Admin: 12/23/17 07:48 Dose: 81 mg Budesonide (Pulmicort Aerosol) 0.25 mg INHALATION Q12H.RT NATALIE Last Admin: 12/23/17 07:30 Dose: 0.25 mg Cyanocobalamin (Vitamin B12) 1,000 mcg PO DAILY [facility] Last Admin: 12/23/17 07:50 Dose: 1,000 mcg Dextrose (D50w Syringe) 0 gm IV X1 PRN; Protocol PRN Reason: Hypoglycemia Digoxin (Lanoxin) 250 mcg PO DAILY [facility] Last Admin: 12/23/17 07:51 Dose: 250 mcg Docusate Sodium (Colace) 100 mg PO DAILY [facility] Last Admin: 12/23/17 07:48 Dose: 100 mg Duloxetine HCl (Cymbalta) 60 mg PO QHS [facility] Last Admin: 12/22/17 22:01 Dose: 60 mg Fenofibrate (Tricor) 145 mg PO DAILY [facility] Last Admin: 12/23/17 07:50 Dose: 145 mg Fluticasone Propionate (Flonase Nasal [place]) 1 spray NASAL BID NATALIE Last Admin: 12/23/17 07:48 Dose: 1 spray Folic Acid (Folic Acid) 1 mg PO DAILY@0800 [facility] Last Admin: 12/23/17 07:48 Dose: 1 mg Furosemide (Lasix) 20 mg PO QODAY [facility] Last Admin: 12/22/17 11:05 Dose: 20 mg Furosemide (Lasix) 40 mg PO QODAY [facility] Last Admin: 12/23/17 07:49 Dose: 40 mg Gabapentin (Neurontin) 600 mg PO BID [facility] Last Admin: 12/23/17 07:50 Dose: 600 mg Glucagon () 1 mg IM .X1 PRN PRN Reason: Hypoglycemia Vancomycin HCl 1,500 mg/ (Sodium Chloride) 530 mls @ 250 mls/hr IV Q12H [facility] Last Admin: 12/23/17 02:35 Dose: 250 mls/hr Insulin Human Lispro (Humalog Kwikpen (Bkc)) 0 unit SQ TIDAC NATALIE PRN Reason: Protocol Last Admin: 12/23/17 06:21 Dose: Not Given Ipratropium [place] (Atrovent) 0.5 mg INHALATION Q6HWA.RT [facility] Last Admin: 12/23/17 07:29 Dose: 0.5 mg Magnesium Hydroxide (Milk Of Magnesia) 30 ml PO DAILY PRN PRN PRN Reason: Constipation Metoprolol Tartrate (Lopressor (Beta Taisha)) 25 mg PO DAILY [facility] Last Admin: 12/23/17 07:50 Dose: 25 mg Oxycodone HCl (Oxyir) 5 mg PO Q4H PRN PRN PRN Reason: Moderate Pain (pain scale 4-5) Last Admin: 12/22/17 22:08 Dose: 5 mg Potassium Chloride (K-Dur) 20 meq PO BID [facility] Last Admin: 12/23/17 07:49 Dose: 20 meq Pramipexole Dihydrochloride (Mirapex) 0.5 mg PO TID [facility] Last Admin: 12/23/17 06:21 Dose: 0.5 mg Pravastatin Sodium (Pravachol) 40 mg PO QHS [facility] Last Admin: 12/22/17 22:02 Dose: 40 mg Rivaroxaban (Xarelto) 10 mg PO DAILY [facility] Last Admin: 12/23/17 07:51 Dose: 10 mg Sodium Chloride () 5 - 30 ml IV UD PRN PRN Reason: SALINE FLUSH Last Admin: 12/22/17 03:01 Dose: 10 ml Valsartan (Diovan) 40 mg PO DAILY [facility] Last Admin: 12/23/17 07:48 Dose: 40 mg Medical Necessity - Tobacco Use Smoking Status: Former smoker Assessment/Plan All Active Problems (Last Reviewed 12/22/17 @ 06:26 by Prince Hua MD) Educational circumstance (Acute) Cellulitis (Acute) GI bleed (Acute) Left VATS procedure with wedge resection KATIE (Acute) port placement (Acute) Educational circumstance (Acute) Cancer of upper lobe of left lung (Acute) Antineoplastic chemotherapy induced anemia (Acute) Constipation (Acute) 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 (Acute) Chemotherapy induced neutropenia (Acute) Anemia (Acute) COPD (chronic obstructive pulmonary disease) (Acute) Dyspnea (Acute) Diabetes (Acute) Neuropathy (Acute) Arthritis (Acute) Obesity (Acute) Alcohol dependence (Acute) GERD (gastroesophageal reflux disease) (Acute) DJD (degenerative joint disease) (Acute) Vascular disease (Acute) Renal disease (Acute) Macular degeneration (Acute) Arrhythmia (Acute) Migraine (Acute) Memory loss (Acute) Hypotestosteronism (Acute) Essential tremor (Acute) Parkinsons (Acute) Dementia (Acute) HEBER (obstructive sleep apnea) (Acute) Benign essential hypertension (Acute) Hammertoes of both feet (Acute) S/P CABG x 2 (Acute) 72-year-old male presenting with the 1 day history of left lower extremity swelling and pain 1.Cellulitis of the LLE * resolving. Swelling on LLE is much better. * on IV vancomycin. IV zosyn dced. * white cell count remains down; is 9.4 today * blood cultures still pending. * for likely dc tomorrow. * 2. diabetes mellitus: A1C 5.6. on insulin sliding scale. Accuchecks ACHS 4. HTN: controlled. On valsartan and metoprolol. 5. A. fib: On metoprolol. Also on Xarelto. 6. Prophylaxis: On Xarelto for A. fib This note was generated with [employer] software. It may contain incorrect words, spelling, and punctuation that were not noted in checking the note before signing. Code Visit Inpatient E&M: 63282 Subs Hosp L2
[2017-12-23 11:16] LABS: Bedside Glucose 145 mg/dL (70-110)
--- NOTE | 2017-12-23 13:45 | CASEMGMT ---
FLORIDA MARTINES Face to Face with patient for initial transition planning/care coordination assessment. FLORIDA MARTINES introduced self and role at [facility]. Patient sitting in chair, alert and oriented. Patient willing to participate in assessment and is able to answer all questions appropriately. Care providers, pharmacy, and demographics verified. Patient lives in a 1 story home with with 1 step to enter home. Patient states he has shower chair, raised toilet seat, cane, hand held shower, walker, WC, oxygen, cpap, and nebulizer at home. Patient wishes to discharge home, denies need for home health at this time. Patient states he has no further needs or concerns at this time. CM to follow for discharge planning needs that may arise. Disposition Plan: Patient to discharge home with family support and follow-up plans in place. Nilda Hsu RN, CM
[2017-12-23] MEDS: 0.9% NaCl Peripheral Flush Adult/Peds IV (14:57)
[2017-12-23 15:21] LABS: Vancomycin, Trough Level 13.8 ug/mL (5.0-15.0)
[2017-12-23 15:56] LABS: Bedside Glucose 122 mg/dL (70-110)
--- NOTE | 2017-12-23 15:56 | PCM.RX.CS ---
Consult Pharmacy has been consulted to manage selected antiobiotic: Vancomycin Type of Consult: Follow-up Suspected Infection: Skin/Soft tissue Prior Doses of Antibiotics Received/Current Regimen: 4 Labs: Sodium 143 mmol/L (136-145) 12/23/17 08:06 Potassium 3.9 mmol/L (3.5-5.1) 12/23/17 08:06 Chloride 109 mmol/L (98-107) H 12/23/17 08:06 Carbon Dioxide 26.0 mmol/L (21.0-32.0) 12/23/17 08:06 Anion Gap 8 (5-15) 12/23/17 08:06 BUN 9 mg/dL (7-18) 12/23/17 08:06 Creatinine 0.77 mg/dL (0.70-1.30) 12/23/17 08:06 Est GFR (MDRD) Af Amer 127 mL/min (>60) 12/23/17 08:06 Est GFR (MDRD) Non-Af 105 mL/min (>60) 12/23/17 08:06 BUN/Creatinine Ratio 11.7 RATIO (10-20) 12/23/17 08:06 Glucose 99 mg/dL (74-106) 12/23/17 08:06 Vancomycin Trough 13.8 ug/mL (5.0-15.0) 12/23/17 14:35 Weight used for dosin kg Goal Trough: 10-15 mcg/mL - CONTINUE SAME DOSE. REPEAT TROUGH IN 4 DAYS Pharmacy Plan for Drug Dosing: Pharmacy Service will continue to monitor and adjust dosing as required.
[2017-12-23] MEDS: Pravastatin 40 MG Tablet PO (21:39)
[2017-12-23] MEDS: DULoxetine Hcl 60 MG Capsule PO (21:39)
[2017-12-23] MEDS: Zolpidem Tartrate 5 MG Tablet 2.5 MG PO (23:29)
[2017-12-24 03:00] VITALS: BP 141/63; PULSE 72; RESP 18; TEMP 37.3; O2SAT 100
[2017-12-24] MEDS: Pramipexole Di-HCl 0.5 MG Tablet PO (06:30)
[2017-12-24 06:40] LABS: Bedside Glucose 94 mg/dL (70-110)
[2017-12-24 07:31] VITALS: PULSE 90; RESP 21; O2SAT 98
[2017-12-24] MEDS: Budesonide Respules 0.5 MG/2 ML AMPUL.NEB. 0.25 MG INHALATION (07:31)
[2017-12-24] MEDS: Ipratropium 0.5 MG/2.5 ML SOLUTION INHALATION (07:32)
[2017-12-24 07:49] VITALS: BP 148/74; PULSE 98; RESP 18; TEMP 36.6; O2SAT 94
[2017-12-24] MEDS: Furosemide 20 MG Tablet PO (07:53)
[2017-12-24] MEDS: Cyanocobalamin 500 MCG Tablet 1000 MCG PO (07:53)
[2017-12-24] MEDS: Fluticasone 0.05% 1 SPRAY NASAL.SRY NASAL (07:53)
[2017-12-24] MEDS: Folic Acid 1 MG Tablet PO (07:54)
[2017-12-24] MEDS: Aspirin E.C. 81 MG Tablet PO (07:54)
[2017-12-24] MEDS: VALSARTAN 40 MG TABLET PO (07:54)
[2017-12-24] MEDS: Docusate Sodium 100 MG Capsule PO (07:54)
[2017-12-24 07:56] VITALS: PULSE 98
[2017-12-24] MEDS: Rivaroxaban 10 MG Tablet PO (07:56)
[2017-12-24] MEDS: Metoprolol Tartrate 25 MG Tablet PO (07:56)
[2017-12-24] MEDS: Digoxin 250 MCG Tablet PO (07:56)
[2017-12-24] MEDS: Gabapentin 600 MG Tablet PO (07:56)
[2017-12-24] MEDS: Fenofibrate 145 MG Tablet PO (07:56)
[2017-12-24 08:26] LABS: Absolute Lymphocyte Count 0.79 X10^3/ul (0.83-4.51); Absolute Neutrophil Count 7.3 X10^3/uL (2.0-7.7); Basophil# 0.03 X10^3/uL; Basophil% 0.3 % (0-1); Eosinophil# 0.36 X10^3/uL; Eosinophils% 3.9 % (0-5); Hematocrit 32.1 % (40-54); Hemoglobin 9.7 g/dl (13.0-16.5); Lymphocyte # 0.79 X10^3/ul (4.0); Lymphocyte % 8.5 % (19-41); Mean Corp Hgb Conc 30.2 g/gl (32-36); Mean Corpuscular Hgb 27.4 pg (27.0-32.0); Mean Corpuscular Volume 90.7 fL (80-94); Mean Platelet Vol. 9.8 fl (6.2-12.0); Monocyte# 0.77 X10^3/uL; Monocyte% 8.3 % (0-10); Neutrophil # 7.33 X10^3/uL (2.7-7.7); POSITIVE COUNT NO; POSITIVE DIFFERENTIAL NO; POSITIVE MORPHOLOGY NO; Platelet Count 226 K/mm3 (150-450); RBC Distribution Width CV 15.6 % (11.6-14.6); RBC Distribution Width SD 51.9 fl (35.1-43.9); Red Blood Count 3.54 M/mm3 (4.6-6.2); White Blood Count 9.3 K/mm3 (4.4-11.0)
[2017-12-24 08:31] LABS: Anion Gap 7 (5-15); BUN 6 mg/dL (7-18); BUN/Creat Ratio 7.5 RATIO (10-20); Calcium,Total 8.1 mg/dL (8.5-10.1); Chloride 107 mmol/L (98-107); EST Glomerular Filtration Rate 101 mL/min (>60); Est Glom Filt Rate - Afr Amer 122 mL/min (>60); Estimated Creatinine Clearance 83.47 ml/min; Glucose 96 mg/dL (74-106); Potassium 3.9 mmol/L (3.5-5.1); Sodium Level 142 mmol/L (136-145)
[2017-12-24 10:56] VITALS: BP 132/83; PULSE 75; RESP 18; TEMP 36.9; O2SAT 94
[2017-12-24 11:01] LABS: Bedside Glucose 190 mg/dL (70-110)
--- NOTE | 2017-12-24 11:21 | PCM.DC ---
- Discharge Diagnoses Current Active Problems: Current Active and Chronic Problems (Last Reviewed 12/22/17 @ 06:26 by Prince Hua MD) Cellulitis (Acute) You will use the following diet at home:: Calorie/Carbohydrate Controlled (specify 1200, 1400, etc) Your food should be the consistency of: Regular Your liquids should be the consistency of: Regular/Thin Discharge Activity: Return to Normal Activity Weight Bearing Status: Weight bearing as tolerated Call your doctor if you observe: Fever of 101 or Higher, - - redness, pain and swelling of extremity Allergies/Adverse Reactions: Allergies No Known Allergies Allergy (Verified 12/21/17 21:32) Medications to take at Discharge Fenofibrate [Tricor] 145 mg PO DAILY 05/06/13 Folic Acid 1 mg PO DAILY@1200 05/06/13 Tiotropium [place] [Spiriva 18 MCG] 1 puff INHALATION DAILY 05/06/13 Duloxetine HCl 60 mg PO QHS 12/04/16 Pramipexole Di-HCl [Mirapex] 0.75 mg PO TID 12/04/16 Digoxin 250 mcg PO DAILY 02/27/17 furosemide 40 mg tablet 40 mg PO QODAY tab 09/25/17 metoprolol tartrate 25 mg tablet 25 mg PO QDAY #30 tab 09/25/17 pravastatin 40 mg tablet 40 mg PO QHS 09/25/17 aspirin 81 mg tablet,delayed release 81 mg PO QDAY 10/06/17 cyanocobalamin (vit B-12) 1,000 mcg tablet 1,000 mcg PO DAILY@1200 10/20/17 docusate sodium 100 mg capsule 100 mg PO BID cap 10/20/17 gabapentin 600 mg tablet 1,200 mg PO QHS tab 10/20/17 potassium chloride ER 20 mEq tablet,extended release 10 meq PO DAILY 10/20/17 Budesonide [Pulmicort] 0.25 mg IH TID 10/23/17 Furosemide [Lasix] 20 mg PO QODAY 10/23/17 Formoterol Fumarate [Perforomist] 20 mcg INHALATION BID 12/22/17 Multivit-Min/Iron Fum/Folic AC [Flavq-Orhgjsk-Srddjbyt Tablet] 1 each PO DAILY@1200 12/22/17 Omeprazole 20 mg PO DAILY@1700 12/22/17 Rivaroxaban [Xarelto] 10 mg PO DAILY@169912/22/17 Sennosides/Docusate Sodium [Senna-Docusate Sodium Tablet] 1 each PO QHS 12/22/17 Valsartan [Diovan] 40 mg PO DAILY 12/22/17 Cephalexin 500 mg PO 4X/DAY 7 Days #28 cap 12/24/17 The following prescriptions were given: Cephalexin 500 mg PO 4X/DAY 7 Days #28 cap Primary Care Physician: Fany Hobson DO [Primary Care Provider] - Please follow up with your Primary Care Physician in: one week Test Results: Test results from this visit will be discussed in further detail at your follow-up appointment, if applicable. Proposed Discharge Date: 12/24/17
--- NOTE | 2017-12-24 11:22 | PCM.DC.SUM ---
Discharge Date and Diagnosis - Problem List Patient Problems: Active and Suspected Problems (Last Reviewed 12/22/17 @ 06:26 by Prince Hua MD) Cellulitis (Acute) Date of Admission: 12/22/17 Date of Discharge: 12/24/17 - Primary Discharge Diagnosis Active and Suspected Problems (Last Reviewed 12/22/17 @ 06:26 by Prince Hua MD) Cellulitis (Acute) - Secondary Discharge Diagnosis Chronic Problems (Last Reviewed 12/22/17 @ 06:26 by Prince Hua MD) Chronic atrial fibrillation (Chronic) angiolasty and stenting to BLE iliac arteries (Chronic ~08/04/12) History of left heart catheterization (Chronic ~12/04/16) Widely patent HERRERA and SVG grafts per [facility] 05/07/[address] Garcia [facility]; [facility] 05/16/[address] Naylor @ [facility] History of coronary artery stent placement (Chronic ~12/23/06) IEL-LNU-GEDV anastomosis-LAD w/ Taxus 2.75 x 8 mm and POBA-PDA 12/23/2006 History of cardioversion (Chronic ~12/2016) Iron deficiency anemia due to chronic blood loss (Chronic) Gastric AVMs, September 2017 Secondary pulmonary arterial hypertension (Chronic) Atherosclerosis of coronary artery of samish heart without angina pectoris (Chronic) CABG x 2 HERRERA-LAD, SVG-OM 02/14/2006 [id number]-[id number] anastomosis-LAD w/ Taxus 2.75 x 8 mm and POBA-PDA 12/23/2006 H/O coronary artery bypass surgery (Chronic ~02/14/06) CABG x 2 HERRERA-LAD, SVG-OM 02/14/[address] Fei Castillo, [facility] Course and Treatment Imaging Results: Diagnostic Data Tibia/Fibula X-Ray 12/21/17 23:19 IMPRESSION: No demonstrated fracture, dislocation, or destructive osseous lesion. Electronically Signed: Gaurav Douglas MD at 0:25 EDT , Service support , Chest X-Ray 12/21/17 23:30 IMPRESSION: No acute pulmonary findings. Electronically Signed: Chava Latham MD at 0:05 EDT Tel , Service support , Laboratory Tests 12/21/17 12/21/17 12/21/17 23:25 23:45 23:45 WBC 16.8 H RBC 3.55 L Hgb 10.3 L Hct 31.8 L MCV 89.6 MCH 29.0 MCHC 32.4 RDW 15.6 H RDW Differential 50.4 H Plt Count 232 MPV 10.2 Immature Gran % (Auto) 0.200 Neut % (Auto) 87.5 H Lymph % (Auto) 5.2 L Grant % (Auto) 6.8 Eos % (Auto) 0.2 Baso % (Auto) 0.1 Absolute Neuts (auto) 14.7 H Absolute Lymphs (auto) 0.88 Total Counted Not Reportable Sodium 138 Potassium 3.4 L Chloride 103 Carbon Dioxide 26.0 Anion Gap 9 BUN 10 Creatinine 1.07 Estim Creat Clear Calc 62.40 Est GFR (MDRD) Af Amer 87 Est GFR (MDRD) Non-Af 72 BUN/Creatinine Ratio 9.3 L Glucose 118 H Hemoglobin A1c Lactic Acid Calcium 8.1 L Troponin I 0.052 H Urine Color Yellow Urine Clarity Clear Urine pH 6.5 Ur Specific [place] 1.010 Urine Protein 15 H Urine Glucose (UA) Normal Urine Ketones Negative Urine Occult Blood 10 H Urine Nitrite Negative Urine Bilirubin Negative Urine Urobilinogen 1 H Ur Leukocyte Esterase Negative Urine RBC 0 SEEN Urine WBC 0 SEEN Ur Squamous Epith Cells 0-5 SEEN Urine Bacteria 0 SEEN Urine Mucus 0 SEEN Vancomycin Trough Digoxin POC Glucose 12/21/17 12/21/17 12/22/17 23:45 23:45 02:19 WBC RBC Hgb Hct MCV MCH MCHC RDW RDW Differential Plt Count MPV Immature Gran % (Auto) Neut % (Auto) Lymph % (Auto) Grant % (Auto) Eos % (Auto) Baso % (Auto) Absolute Neuts (auto) Absolute Lymphs (auto) Total Counted Sodium Potassium Chloride Carbon Dioxide Anion Gap BUN Creatinine Estim Creat Clear Calc Est GFR (MDRD) Af Amer Est GFR (MDRD) Non-Af BUN/Creatinine Ratio Glucose Hemoglobin A1c Lactic Acid 1.2 Calcium Troponin I 0.059 H Urine Color Urine Clarity Urine pH Ur Specific [place] Urine Protein Urine Glucose (UA) Urine Ketones Urine Occult Blood Urine Nitrite Urine Bilirubin Urine Urobilinogen Ur Leukocyte Esterase Urine RBC Urine WBC Ur Squamous Epith Cells Urine Bacteria Urine Mucus Vancomycin Trough Digoxin 1.26 POC Glucose 12/22/17 12/22/17 12/22/17 02:19 05:22 05:22 WBC 11.0 RBC 3.42 L Hgb 9.6 L Hct 31.1 L MCV 90.9 MCH 28.1 MCHC 30.9 L RDW 15.9 H RDW Differential 52.9 H Plt Count 207 MPV 9.8 Immature Gran % (Auto) 0.100 Neut % (Auto) 83.1 H Lymph % (Auto) 6.8 L Grant % (Auto) 9.6 Eos % (Auto) 0.3 Baso % (Auto) 0.1 Absolute Neuts (auto) 9.2 H Absolute Lymphs (auto) 0.75 L Total Counted Not Reportable Sodium 145 Potassium 3.5 Chloride 109 H Carbon Dioxide 29.0 Anion Gap 7 BUN 10 Creatinine 0.91 Estim Creat Clear Calc 73.38 Est GFR (MDRD) Af Amer 105 Est GFR (MDRD) Non-Af 87 BUN/Creatinine Ratio 11.0 Glucose 110 H Hemoglobin A1c 5.6 Lactic Acid Calcium 7.8 L Troponin I 0.051 H Urine Color Urine Clarity Urine pH Ur Specific [place] Urine Protein Urine Glucose (UA) Urine Ketones Urine Occult Blood Urine Nitrite Urine Bilirubin Urine Urobilinogen Ur Leukocyte Esterase Urine RBC Urine WBC Ur Squamous Epith Cells Urine Bacteria Urine Mucus Vancomycin Trough Digoxin POC Glucose 12/22/17 12/22/17 12/22/17 06:43 11:04 16:22 WBC RBC Hgb Hct MCV MCH MCHC RDW RDW Differential Plt Count MPV Immature Gran % (Auto) Neut % (Auto) Lymph % (Auto) Grant % (Auto) Eos % (Auto) Baso % (Auto) Absolute Neuts (auto) Absolute Lymphs (auto) Total Counted Sodium Potassium Chloride Carbon Dioxide Anion Gap BUN Creatinine Estim Creat Clear Calc Est GFR (MDRD) Af Amer Est GFR (MDRD) Non-Af BUN/Creatinine Ratio Glucose Hemoglobin A1c Lactic Acid Calcium Troponin I Urine Color Urine Clarity Urine pH Ur Specific [place] Urine Protein Urine Glucose (UA) Urine Ketones Urine Occult Blood Urine Nitrite Urine Bilirubin Urine Urobilinogen Ur Leukocyte Esterase Urine RBC Urine WBC Ur Squamous Epith Cells Urine Bacteria Urine Mucus Vancomycin Trough Digoxin POC Glucose 117 H 134 H 81 12/23/17 12/23/17 12/23/17 06:20 08:06 08:06 WBC 9.4 RBC 3.45 L Hgb 9.5 L Hct 31.7 L MCV 91.9 MCH 27.5 MCHC 30.0 L RDW 16.1 H RDW Differential 54.3 H Plt Count 211 MPV 9.9 Immature Gran % (Auto) 0.100 Neut % (Auto) 79.1 H Lymph % (Auto) 9.5 L Grant % (Auto) 8.2 Eos % (Auto) 2.9 Baso % (Auto) 0.2 Absolute Neuts (auto) 7.4 Absolute Lymphs (auto) 0.89 Total Counted Not Reportable Sodium 143 Potassium 3.9 Chloride 109 H Carbon Dioxide 26.0 Anion Gap 8 BUN 9 Creatinine 0.77 Estim Creat Clear Calc 66.77 Est GFR (MDRD) Af Amer 127 Est GFR (MDRD) Non-Af 105 BUN/Creatinine Ratio 11.7 Glucose 99 Hemoglobin A1c Lactic Acid Calcium 8.1 L Troponin I Urine Color Urine Clarity Urine pH Ur Specific [place] Urine Protein Urine Glucose (UA) Urine Ketones Urine Occult Blood Urine Nitrite Urine Bilirubin Urine Urobilinogen Ur Leukocyte Esterase Urine RBC Urine WBC Ur Squamous Epith Cells Urine Bacteria Urine Mucus Vancomycin Trough Digoxin POC Glucose 104 12/23/17 12/23/17 12/23/17 11:09 14:35 15:46 WBC RBC Hgb Hct MCV MCH MCHC RDW RDW Differential Plt Count MPV Immature Gran % (Auto) Neut % (Auto) Lymph % (Auto) Grant % (Auto) Eos % (Auto) Baso % (Auto) Absolute Neuts (auto) Absolute Lymphs (auto) Total Counted Sodium Potassium Chloride Carbon Dioxide Anion Gap BUN Creatinine Estim Creat Clear Calc Est GFR (MDRD) Af Amer Est GFR (MDRD) Non-Af BUN/Creatinine Ratio Glucose Hemoglobin A1c Lactic Acid Calcium Troponin I Urine Color Urine Clarity Urine pH Ur Specific [place] Urine Protein Urine Glucose (UA) Urine Ketones Urine Occult Blood Urine Nitrite Urine Bilirubin Urine Urobilinogen Ur Leukocyte Esterase Urine RBC Urine WBC Ur Squamous Epith Cells Urine Bacteria Urine Mucus Vancomycin Trough 13.8 Digoxin POC Glucose 145 H 122 H 12/24/17 12/24/1718 06:28 08:06 08:06 WBC 9.3 RBC 3.54 L Hgb 9.7 L Hct 32.1 L MCV 90.7 MCH 27.4 MCHC 30.2 L RDW 15.6 H RDW Differential 51.9 H Plt Count 226 MPV 9.8 Immature Gran % (Auto) 0.000 Neut % (Auto) 79.0 H Lymph % (Auto) 8.5 L Grant % (Auto) 8.3 Eos % (Auto) 3.9 Baso % (Auto) 0.3 Absolute Neuts (auto) 7.3 Absolute Lymphs (auto) 0.79 L Total Counted Not Reportable Sodium 142 Potassium 3.9 Chloride 107 Carbon Dioxide 28.0 Anion Gap 7 BUN 6 L Creatinine 0.80 Estim Creat Clear Calc 83.47 Est GFR (MDRD) Af Amer 122 Est GFR (MDRD) Non-Af 101 BUN/Creatinine Ratio 7.5 L Glucose 96 Hemoglobin A1c Lactic Acid Calcium 8.1 L Troponin I Urine Color Urine Clarity Urine pH Ur Specific [place] Urine Protein Urine Glucose (UA) Urine Ketones Urine Occult Blood Urine Nitrite Urine Bilirubin Urine Urobilinogen Ur Leukocyte Esterase Urine RBC Urine WBC Ur Squamous Epith Cells Urine Bacteria Urine Mucus Vancomycin Trough Digoxin POC Glucose 94 12/24/17 10:45 WBC RBC Hgb Hct MCV MCH MCHC RDW RDW Differential Plt Count MPV Immature Gran % (Auto) Neut % (Auto) Lymph % (Auto) Grant % (Auto) Eos % (Auto) Baso % (Auto) Absolute Neuts (auto) Absolute Lymphs (auto) Total Counted Sodium Potassium Chloride Carbon Dioxide Anion Gap BUN Creatinine Estim Creat Clear Calc Est GFR (MDRD) Af Amer Est GFR (MDRD) Non-Af BUN/Creatinine Ratio Glucose Hemoglobin A1c Lactic Acid Calcium Troponin I Urine Color Urine Clarity Urine pH Ur Specific [place] Urine Protein Urine Glucose (UA) Urine Ketones Urine Occult Blood Urine Nitrite Urine Bilirubin Urine Urobilinogen Ur Leukocyte Esterase Urine RBC Urine WBC Ur Squamous Epith Cells Urine Bacteria Urine Mucus Vancomycin Trough Digoxin POC Glucose 190 H Operations: None Procedures: None Summary of Care Provided: The Patient is a 72-year-old male with a history of diabetes type 2, CAD, COPD, hypertension and A. fib. He was admitted with a complaint of chills and subjective fever for the past few days and had noticed redness and swelling in his left lower extremity 1 day prior to admission. Swelling had progressively increasing pain had worsened. Vitals were stable and labs were unremarkable. Imaging done of the left lower extremity showed no acute event. He was managed for cellulitis of the left lower extremity, on IV vancomycin. Patient remained stable and erythema swelling and tenderness resolved. Blood cultures were ordered, pending at time of discharge still. Patient remained stable and was discharged home on 12/24/17 on p.o. Keflex 500 mg every 6 hours x 7 days. He is to follow up with his PCP in one week. Patient seen and examined on 12/24/17 prior to discharge. He had no complaints and felt very well. He denied any fever, chills, cough, chest pain, SOB, pain, diarrhea or vomiting. Left lower extremity swelling had resolved significantly patient felt much better. o/e: General: Alert, Oriented x3, Cooperative, No apparent distress HEENT: Atraumatic, PERRLA, EOMI, Normocephalic Oral: Moist Mucosa Neck: Supple, No JVD, Negative Carotid Bruits Lungs: Clear to auscultation, Normal air movement, No rhonchi, No wheeze, No rales Cardiovascular: Regular rate, Regular Rhythm, Normal S1, Normal S2, No murmurs Abdomen: Bowel Sounds Present, Soft, Non Tender, Non-Distended, No Hepato-splenomegaly Extremities: Mildly Diminished Peripheral Pulses - Diminished DP and PT pulses bilaterally. Erythema and swelling of left fisher and left thigh have resolved significantly. Has healing ulceration of left big toe, which is likely the source of cellulitis Musculoskeletal: No Tenderness to Palpation of Joints or Extremities Lymphatic: No Cervical, Supraclavicular, or Inguinal Adenopathy Neurological: Cranial nerves II-XII grossly intact Psych/Mental Status: Normal Affect, Appropriate, Alert and oriented to time, place, person, mood and affect Plan as stated above. This note was generated with [employer] dictation software. It may contain incorrect words, spelling, and punctuation that were not noted in checking the note before signing. [] Discharge Diet: 1800 Calorie Control Diet Discharge Activity: Return to Normal Activity Weight Bearing Status: Weight bearing as tolerated Call your doctor if you observe: Fever of 101 or Higher, - - redness, pain and swelling of extremity Home Medications: Medications to take at Discharge Fenofibrate [Tricor] 145 mg PO DAILY 05/06/13 Folic Acid 1 mg PO DAILY@1200 05/06/13 Tiotropium [place] [Spiriva 18 MCG] 1 puff INHALATION DAILY 05/06/13 Duloxetine HCl 60 mg PO QHS 12/04/16 Pramipexole Di-HCl [Mirapex] 0.75 mg PO TID 12/04/16 Digoxin 250 mcg PO DAILY 02/27/17 furosemide 40 mg tablet 40 mg PO QODAY tab 09/25/17 metoprolol tartrate 25 mg tablet 25 mg PO QDAY #30 tab 09/25/17 pravastatin 40 mg tablet 40 mg PO QHS 09/25/17 aspirin 81 mg tablet,delayed release 81 mg PO QDAY 10/06/17 cyanocobalamin (vit B-12) 1,000 mcg tablet 1,000 mcg PO DAILY@1200 10/20/17 docusate sodium 100 mg capsule 100 mg PO BID cap 10/20/17 gabapentin 600 mg tablet 1,200 mg PO QHS tab 10/20/17 potassium chloride ER 20 mEq tablet,extended release 10 meq PO DAILY 10/20/17 Budesonide [Pulmicort] 0.25 mg IH TID 10/23/17 Furosemide [Lasix] 20 mg PO QODAY 10/23/17 Formoterol Fumarate [Perforomist] 20 mcg INHALATION BID 12/22/17 Multivit-Min/Iron Fum/Folic AC [Dbezd-Wrurwrj-Kbwbtbct Tablet] 1 each PO DAILY@1200 12/22/17 Omeprazole 20 mg PO DAILY@1700 12/22/17 Rivaroxaban [Xarelto] 10 mg PO DAILY@1700 12/22/17 Sennosides/Docusate Sodium [Senna-Docusate Sodium Tablet] 1 each PO QHS 12/22/17 Valsartan [Diovan] 40 mg PO DAILY 12/22/17 Cephalexin 500 mg PO 4X/DAY 7 Days #28 cap 12/24/17 Following Prescrptions Were Given to Patient: Cephalexin 500 mg PO 4X/DAY 7 Days #28 cap Primary Care Physician: Fany Hobson DO [Primary Care Provider] - Please follow up with your Primary Care Physician in: one week Disposition: Home Minutes spent on discharge:: 40 Patient Condition:: Good Medical Necessity - Tobacco Use Smoking Status: Former smoker Meaningful Use Info Meaningful Use Diagnoses (Choose all that apply): None applicable Code Visit Inpatient E&M: 07237 Disch Hosp
--- NOTE | 2017-12-24 11:29 | DS.PCM_ITS ---
Discharge Date and Diagnosis - Problem List Patient Problems: Active and Suspected Problems (Last Reviewed 12/22/17 @ 06:26 by Prince Hua MD) Cellulitis (Acute) Date of Admission: 12/22/17 Date of Discharge: 12/24/17 - Primary Discharge Diagnosis Active and Suspected Problems (Last Reviewed 12/22/17 @ 06:26 by Prince Hua MD) Cellulitis (Acute) - Secondary Discharge Diagnosis Chronic Problems (Last Reviewed 12/22/17 @ 06:26 by Prince Hua MD) Chronic atrial fibrillation (Chronic) angiolasty and stenting to BLE iliac arteries (Chronic ~08/04/12) History of left heart catheterization (Chronic ~12/04/16) Widely patent HERRERA and SVG grafts per [facility] 05/07/[address] Garcia [facility]; [facility] per Dr. Naylor @ [facility] History of coronary artery stent placement (Chronic ~12/23/06) [id number] anastomosis-LAD w/ Taxus 2.75 x 8 mm and POBA-PDA 12/23/2006 History of cardioversion (Chronic ~12/2016) Iron deficiency anemia due to chronic blood loss (Chronic) Gastric AVMs, September 2017 Secondary pulmonary arterial hypertension (Chronic) Atherosclerosis of coronary artery of [place] heart without angina pectoris ( Chronic) CABG x 2 HERRERA-LAD, SVG-OM 02/14/2006 LIT-SJJ-BSMA anastomosis-LAD w/ Taxus 2.75 x 8 mm and POBA-PDA 12/23/2006 H/O coronary artery bypass surgery (Chronic ~02/14/06) CABG x 2 HERRERA-LAD, SVG-OM 02/14/[address] Fei Castillo, [facility] Course and Treatment Imaging Results: Diagnostic Data Tibia/Fibula X-Ray 12/21/17 23:19 IMPRESSION: No demonstrated fracture, dislocation, or destructive osseous lesion. Electronically Signed: Gaurav Douglas MD at 0:25 EDT , Service support , Chest X-Ray 12/21/17 23:30 IMPRESSION: No acute pulmonary findings. Electronically Signed: Chava Latham MD at 0:05 EDT Tel , Service support , Laboratory Tests 12/21/17 12/21/17 12/21/17 23:25 23:45 23:45 WBC 16.8 H RBC 3.55 L Hgb 10.3 L Hct 31.8 L MCV 89.6 MCH 29.0 MCHC 32.4 RDW 15.6 H RDW Differential 50.4 H Plt Count 232 MPV 10.2 Immature Gran % (Auto) 0.200 Neut % (Auto) 87.5 H Lymph % (Auto) 5.2 L [place] % (Auto) 6.8 Eos % (Auto) 0.2 Baso % (Auto) 0.1 Absolute Neuts (auto) 14.7 H Absolute Lymphs (auto) 0.88 Total Counted Not Reportable Sodium 138 Potassium 3.4 L Chloride 103 Carbon Dioxide 26.0 Anion Gap 9 BUN 10 Creatinine 1.07 Estim Creat Clear Calc 62.40 Est GFR (MDRD) Af Amer 87 Est GFR (MDRD) Non-Af 72 BUN/Creatinine Ratio 9.3 L Glucose 118 H Hemoglobin A1c Lactic Acid Calcium 8.1 L Troponin I 0.052 H Urine Color Yellow Urine Clarity Clear Urine pH 6.5 Ur Specific [place] 1.010 Urine Protein 15 H Urine Glucose (UA) Normal Urine Ketones Negative Urine Occult Blood 10 H Urine Nitrite Negative Urine Bilirubin Negative Urine Urobilinogen 1 H Ur Leukocyte Esterase Negative Urine RBC 0 SEEN Urine WBC 0 SEEN Ur Squamous Epith Cells 0-5 SEEN Urine Bacteria 0 SEEN Urine Mucus 0 SEEN Vancomycin Trough Digoxin POC Glucose 12/21/17 12/21/17 12/22/17 23:45 23:45 02:19 WBC RBC Hgb Hct MCV MCH MCHC RDW RDW Differential Plt Count MPV Immature Gran % (Auto) Neut % (Auto) Lymph % (Auto) [place] % (Auto) Eos % (Auto) Baso % (Auto) Absolute Neuts (auto) Absolute Lymphs (auto) Total Counted Sodium Potassium Chloride Carbon Dioxide Anion Gap BUN Creatinine Estim Creat Clear Calc Est GFR (MDRD) Af Amer Est GFR (MDRD) Non-Af BUN/Creatinine Ratio Glucose Hemoglobin A1c Lactic Acid 1.2 Calcium Troponin I 0.059 H Urine Color Urine Clarity Urine pH Ur Specific [place] Urine Protein Urine Glucose (UA) Urine Ketones Urine Occult Blood Urine Nitrite Urine Bilirubin Urine Urobilinogen Ur Leukocyte Esterase Urine RBC Urine WBC Ur Squamous Epith Cells Urine Bacteria Urine Mucus Vancomycin Trough Digoxin 1.26 POC Glucose 12/22/17 12/22/17 12/22/17 02:19 05:22 05:22 WBC 11.0 RBC 3.42 L Hgb 9.6 L Hct 31.1 L MCV 90.9 MCH 28.1 MCHC 30.9 L RDW 15.9 H RDW Differential 52.9 H Plt Count 207 MPV 9.8 Immature Gran % (Auto) 0.100 Neut % (Auto) 83.1 H Lymph % (Auto) 6.8 L [place] % (Auto) 9.6 Eos % (Auto) 0.3 Baso % (Auto) 0.1 Absolute Neuts (auto) 9.2 H Absolute Lymphs (auto) 0.75 L Total Counted Not Reportable Sodium 145 Potassium 3.5 Chloride 109 H Carbon Dioxide 29.0 Anion Gap 7 BUN 10 Creatinine 0.91 Estim Creat Clear Calc 73.38 Est GFR (MDRD) Af Amer 105 Est GFR (MDRD) Non-Af 87 BUN/Creatinine Ratio 11.0 Glucose 110 H Hemoglobin A1c 5.6 Lactic Acid Calcium 7.8 L Troponin I 0.051 H Urine Color Urine Clarity Urine pH Ur Specific [place] Urine Protein Urine Glucose (UA) Urine Ketones Urine Occult Blood Urine Nitrite Urine Bilirubin Urine Urobilinogen Ur Leukocyte Esterase Urine RBC Urine WBC Ur Squamous Epith Cells Urine Bacteria Urine Mucus Vancomycin Trough Digoxin POC Glucose 12/22/17 12/22/17 12/22/17 06:43 11:04 16:22 WBC RBC Hgb Hct MCV MCH MCHC RDW RDW Differential Plt Count MPV Immature Gran % (Auto) Neut % (Auto) Lymph % (Auto) [place] % (Auto) Eos % (Auto) Baso % (Auto) Absolute Neuts (auto) Absolute Lymphs (auto) Total Counted Sodium Potassium Chloride Carbon Dioxide Anion Gap BUN Creatinine Estim Creat Clear Calc Est GFR (MDRD) Af Amer Est GFR (MDRD) Non-Af BUN/Creatinine Ratio Glucose Hemoglobin A1c Lactic Acid Calcium Troponin I Urine Color Urine Clarity Urine pH Ur Specific [place] Urine Protein Urine Glucose (UA) Urine Ketones Urine Occult Blood Urine Nitrite Urine Bilirubin Urine Urobilinogen Ur Leukocyte Esterase Urine RBC Urine WBC Ur Squamous Epith Cells Urine Bacteria Urine Mucus Vancomycin Trough Digoxin POC Glucose 117 H 134 H 81 12/23/17 12/23/17 12/23/17 06:20 08:06 08:06 WBC 9.4 RBC 3.45 L Hgb 9.5 L Hct 31.7 L MCV 91.9 MCH 27.5 MCHC 30.0 L RDW 16.1 H RDW Differential 54.3 H Plt Count 211 MPV 9.9 Immature Gran % (Auto) 0.100 Neut % (Auto) 79.1 H Lymph % (Auto) 9.5 L [place] % (Auto) 8.2 Eos % (Auto) 2.9 Baso % (Auto) 0.2 Absolute Neuts (auto) 7.4 Absolute Lymphs (auto) 0.89 Total Counted Not Reportable Sodium 143 Potassium 3.9 Chloride 109 H Carbon Dioxide 26.0 Anion Gap 8 BUN 9 Creatinine 0.77 Estim Creat Clear Calc 66.77 Est GFR (MDRD) Af Amer 127 Est GFR (MDRD) Non-Af 105 BUN/Creatinine Ratio 11.7 Glucose 99 Hemoglobin A1c Lactic Acid Calcium 8.1 L Troponin I Urine Color Urine Clarity Urine pH Ur Specific [place] Urine Protein Urine Glucose (UA) Urine Ketones Urine Occult Blood Urine Nitrite Urine Bilirubin Urine Urobilinogen Ur Leukocyte Esterase Urine RBC Urine WBC Ur Squamous Epith Cells Urine Bacteria Urine Mucus Vancomycin Trough Digoxin POC Glucose 104 12/23/17 12/23/17 12/23/17 11:09 14:35 15:46 WBC RBC Hgb Hct MCV MCH MCHC RDW RDW Differential Plt Count MPV Immature Gran % (Auto) Neut % (Auto) Lymph % (Auto) [place] % (Auto) Eos % (Auto) Baso % (Auto) Absolute Neuts (auto) Absolute Lymphs (auto) Total Counted Sodium Potassium Chloride Carbon Dioxide Anion Gap BUN Creatinine Estim Creat Clear Calc Est GFR (MDRD) Af Amer Est GFR (MDRD) Non-Af BUN/Creatinine Ratio Glucose Hemoglobin A1c Lactic Acid Calcium Troponin I Urine Color Urine Clarity Urine pH Ur Specific [place] Urine Protein Urine Glucose (UA) Urine Ketones Urine Occult Blood Urine Nitrite Urine Bilirubin Urine Urobilinogen Ur Leukocyte Esterase Urine RBC Urine WBC Ur Squamous Epith Cells Urine Bacteria Urine Mucus Vancomycin Trough 13.8 Digoxin POC Glucose 145 H 122 H 12/24/17 12/24/1718 06:28 08:06 08:06 WBC 9.3 RBC 3.54 L Hgb 9.7 L Hct 32.1 L MCV 90.7 MCH 27.4 MCHC 30.2 L RDW 15.6 H RDW Differential 51.9 H Plt Count 226 MPV 9.8 Immature Gran % (Auto) 0.000 Neut % (Auto) 79.0 H Lymph % (Auto) 8.5 L [place] % (Auto) 8.3 Eos % (Auto) 3.9 Baso % (Auto) 0.3 Absolute Neuts (auto) 7.3 Absolute Lymphs (auto) 0.79 L Total Counted Not Reportable Sodium 142 Potassium 3.9 Chloride 107 Carbon Dioxide 28.0 Anion Gap 7 BUN 6 L Creatinine 0.80 Estim Creat Clear Calc 83.47 Est GFR (MDRD) Af Amer 122 Est GFR (MDRD) Non-Af 101 BUN/Creatinine Ratio 7.5 L Glucose 96 Hemoglobin A1c Lactic Acid Calcium 8.1 L Troponin I Urine Color Urine Clarity Urine pH Ur Specific [place] Urine Protein Urine Glucose (UA) Urine Ketones Urine Occult Blood Urine Nitrite Urine Bilirubin Urine Urobilinogen Ur Leukocyte Esterase Urine RBC Urine WBC Ur Squamous Epith Cells Urine Bacteria Urine Mucus Vancomycin Trough Digoxin POC Glucose 94 12/24/17 10:45 WBC RBC Hgb Hct MCV MCH MCHC RDW RDW Differential Plt Count MPV Immature Gran % (Auto) Neut % (Auto) Lymph % (Auto) [place] % (Auto) Eos % (Auto) Baso % (Auto) Absolute Neuts (auto) Absolute Lymphs (auto) Total Counted Sodium Potassium Chloride Carbon Dioxide Anion Gap BUN Creatinine Estim Creat Clear Calc Est GFR (MDRD) Af Amer Est GFR (MDRD) Non-Af BUN/Creatinine Ratio Glucose Hemoglobin A1c Lactic Acid Calcium Troponin I Urine Color Urine Clarity Urine pH Ur Specific [place] Urine Protein Urine Glucose (UA) Urine Ketones Urine Occult Blood Urine Nitrite Urine Bilirubin Urine Urobilinogen Ur Leukocyte Esterase Urine RBC Urine WBC Ur Squamous Epith Cells Urine Bacteria Urine Mucus Vancomycin Trough Digoxin POC Glucose 190 H Operations: None Procedures: None Summary of Care Provided: The Patient is a 72-year-old male with a history of diabetes type 2, CAD, COPD, hypertension and A. fib. He was admitted with a complaint of chills and subjective fever for the past few days and had noticed redness and swelling in his left lower extremity 1 day prior to admission. Swelling had progressively increasing pain had worsened. Vitals were stable and labs were unremarkable. Imaging done of the left lower extremity showed no acute event. He was managed for cellulitis of the left lower extremity, on IV vancomycin. Patient remained stable and erythema swelling and tenderness resolved. Blood cultures were ordered, pending at time of discharge still. Patient remained stable and was discharged home on 12/24/17 on p.o. Keflex 500 mg every 6 hours x 7 days. He is to follow up with his PCP in one week. Patient seen and examined on 12/24/17 prior to discharge. He had no complaints and felt very well. He denied any fever, chills, cough, chest pain, SOB, pain, diarrhea or vomiting. Left lower extremity swelling had resolved significantly patient felt much better. o/e: General: Alert, Oriented x3, Cooperative, No apparent distress HEENT: Atraumatic, PERRLA, EOMI, Normocephalic Oral: Moist Mucosa Neck: Supple, No JVD, Negative Carotid Bruits Lungs: Clear to auscultation, Normal air movement, No rhonchi, No wheeze, No rales Cardiovascular: Regular rate, Regular Rhythm, Normal S1, Normal S2, No murmurs Abdomen: Bowel Sounds Present, Soft, Non Tender, Non-Distended, No Hepato- splenomegaly Extremities: Mildly Diminished Peripheral Pulses - Diminished DP and PT pulses bilaterally. Erythema and swelling of left fisher and left thigh have resolved significantly. Has healing ulceration of left big toe, which is likely the source of cellulitis Musculoskeletal: No Tenderness to Palpation of Joints or Extremities Lymphatic: No Cervical, Supraclavicular, or Inguinal Adenopathy Neurological: Cranial nerves II-XII grossly intact Psych/Mental Status: Normal Affect, Appropriate, Alert and oriented to time, place, person, mood and affect Plan as stated above. This note was generated with [employer] dictation software. It may contain incorrect words, spelling, and punctuation that were not noted in checking the note before signing. [] Discharge Diet: 1800 Calorie Control Diet Discharge Activity: Return to Normal Activity Weight Bearing Status: Weight bearing as tolerated Call your doctor if you observe: Fever of 101 or Higher, - - redness, pain and swelling of extremity Home Medications: Medications to take at Discharge Fenofibrate [Tricor] 145 mg PO DAILY 05/06/13 Folic Acid 1 mg PO DAILY@1200 05/06/13 Tiotropium [place] [Spiriva 18 MCG] 1 puff INHALATION DAILY 05/06/13 Duloxetine HCl 60 mg PO QHS 12/04/16 Pramipexole Di-HCl [Mirapex] 0.75 mg PO TID 12/04/16 Digoxin 250 mcg PO DAILY 02/27/17 furosemide 40 mg tablet 40 mg PO QODAY tab 09/25/17 metoprolol tartrate 25 mg tablet 25 mg PO QDAY #30 tab 09/25/17 pravastatin 40 mg tablet 40 mg PO QHS 09/25/17 aspirin 81 mg tablet,delayed release 81 mg PO QDAY 10/06/17 cyanocobalamin (vit B-12) 1,000 mcg tablet 1,000 mcg PO DAILY@1200 10/20/17 docusate sodium 100 mg capsule 100 mg PO BID cap 10/20/17 gabapentin 600 mg tablet 1,200 mg PO QHS tab 10/20/17 potassium chloride ER 20 mEq tablet,extended release 10 meq PO DAILY 10/20/17 Budesonide [Pulmicort] 0.25 mg IH TID 10/23/17 Furosemide [Lasix] 20 mg PO QODAY 10/23/17 Formoterol Fumarate [Perforomist] 20 mcg INHALATION BID 12/22/17 Multivit-Min/Iron Fum/Folic AC [Xrfbc-Mbwbmyq-Czehiotf Tablet] 1 each PO DAILY@ 1200 12/22/17 Omeprazole 20 mg PO DAILY@1700 12/22/17 Rivaroxaban [Xarelto] 10 mg PO DAILY@1700 12/22/17 Sennosides/Docusate Sodium [Senna-Docusate Sodium Tablet] 1 each PO QHS Valsartan [Diovan] 40 mg PO DAILY 12/22/17 Cephalexin 500 mg PO 4X/DAY 7 Days #28 cap 12/24/17 Following Prescrptions Were Given to Patient: Cephalexin 500 mg PO 4X/DAY 7 Days #28 cap Primary Care Physician: Fany Hobson DO [Primary Care Provider] - Please follow up with your Primary Care Physician in: one week Disposition: Home Minutes spent on discharge:: 40 Patient Condition:: Good Medical Necessity - Tobacco Use Smoking Status: Former smoker Meaningful Use Info Meaningful Use Diagnoses (Choose all that apply): None applicable Code Visit Inpatient E&M: 48353 Disch Hosp
--- NOTE | 2017-12-26 16:33 | CASEMGMT ---
[place]OR[place] MARTINES Discharge Follow-up Phone Call: MAGGYKristine: Meron Strata: 3 Call Date: 12/26/17 Discharge Date: 12/24/17 Time of Call: 1434 Duration: 3 min Admitting Diagnosis: Cellulitis [place] MARTINES completed follow-up phone call after recent hospitalization. Patient states that he is doing well and saw his family doctor today. Patient states that he had no questions regarding discharge instructions or medications at this time.
== END 2017-12-24 13:10 | disposition home or self-care (01) | DRG 603 ==
LOC: ED 22:53 → MS3 12-22 01:21
PROVIDERS: Admitting Provider Internal Medicine; Emergency Provider Emergency Medicine; Family Provider Internal Medicine; PCP Internal Medicine; Visit Provider Student in an Organized Health Care Education/Training Program
DX: L03.116 Cellulitis of left lower limb (principal); Z68.41 Body mass index [BMI] 40.0-44.9, adult; E11.9 Type 2 diabetes mellitus without complications; I10 Essential (primary) hypertension; I48.2 Chronic atrial fibrillation; I25.10 Atherosclerotic heart disease of native coronary artery without angina pectoris; Z95.1 Presence of aortocoronary bypass graft; Z95.5 Presence of coronary angioplasty implant and graft; Z87.891 Personal history of nicotine dependence; D50.0 Iron deficiency anemia secondary to blood loss (chronic); I27.21 Secondary pulmonary arterial hypertension; J44.9 Chronic obstructive pulmonary disease, unspecified; Z79.01 Long term (current) use of anticoagulants; E66.9 Obesity, unspecified; G62.9 Polyneuropathy, unspecified; K59.00 Constipation, unspecified
CPT/HCPCS: 36415; 71045; 73590; 80048; 80162; 80202; 81001; 82962; 83036; 83605; 84484; 85025; 87040; 93005; 93970; 94640; 97161; 97165; 99283; J7030; J7040; A4216

== ENCOUNTER → 2018-01-13 13:23 | Outpatient (CLI) | payer MEDICARE, OTHER, SELFPAY ==
--- NOTE | 2018-01-13 13:26 | CT_ITS ---
STUDY: CT ABDOMEN WITH CONTRAST REASON FOR EXAM: Male, 72 years old. 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 RADIATION DOSAGE (If Supplied By Facility): CTDIvol = ( 24.64 ) mGy, DLP = ( 1987.55 ) mGycm TECHNIQUE: Transaxial images were obtained post I.V. administration of 100 ml of Isovue 300 contrast, and no oral contrast. Sagittal and coronal images were reconstructed. Individualized dose optimization techniques were used for this CT. COMPARISON: CTA chest 03/18/2017. CT chest 01/13/2018. FINDINGS: Abdominal body wall soft tissues: No acute process. Osseous structures: Mild lumbar spondylosis. Osteopenia. Mild scoliosis. No acute osseous process. Facet hypertrophy contributes to mild foraminal stenosis at L4-L5 and L5-S1. Hepatobiliary: Normal. Pancreas: Mild atrophy. Spleen: Normal. Adrenal glands: Normal left adrenal gland. Right adrenal nodule measures craniocaudal 4.9 cm, anterior-posterior 5.3 cm, transverse 3.9 cm. It contains small foci of macroscopic fat. No change compared to prior imaging of March 2017 and therefore likely benign. Kidneys: Symmetric nephrograms. No significant atrophy. No suspicious lesions. Normal collecting systems and proximal ureters. Retroperitoneum: No mass or lymphadenopathy. Vasculature: Prominent circumferential calcifications of the aorta with mild nonaneurysmal ectasia of the infrarenal abdominal aorta, prominent calcified plaque with what appears to be a short stent in the proximal right renal artery, stent of the right common iliac artery. Stomach: No acute process. Small bowel: Evaluated portions are unremarkable. Normal mesentery. Large bowel: Evaluated portions of the large bowel exhibit no acute process. There is diverticulosis of the distal large bowel without visible diverticulitis. Free fluid or free air: None. CT/Abdomen WITH IV Contrast IMPRESSION: Stable right adrenal nodule containing macroscopic fat and exhibiting benign features. No acute upper abdominal process is otherwise evident. Electronically Signed: Glen Stevenson, at 16:53 EDT Tel , Service support ,
--- NOTE | 2018-01-13 13:26 | CT_ITS ---
STUDY: CT CHEST WITH CONTRAST REASON FOR EXAM: Male, 72 years old. Neoplasm of the upper lobe of the lung. Follow-up. RADIATION DOSAGE (If Supplied By Facility): CTDIvol = ( 24.64 ) mGy, DLP = ( 1987.55 ) mGycm TECHNIQUE: Transaxial imaging was performed following intravenous administration of 100 ml of Isovue 300 contrast material. Coronal and sagittal 2-D MPR. Individualized dose optimization techniques were used for this CT. COMPARISON: CTA chest 03/18/2017. FINDINGS: Supraclavicular: No acute process. Thoracic body wall soft tissues: No acute process. Next line upper abdomen: Stable right adrenal nodule described in the CT abdomen dictation. Please see that report. Osseous structures: Median sternotomy. No acute process. Mediastinum: Normal esophagus. No mass or lymphadenopathy. Heart: Borderline cardiomegaly, no pericardial effusion, coronary calcifications, CABG. Aorta: Nondilated, mild arch atherosclerosis. Pulmonary arteries: Mildly ectatic, no evidence of central or peripheral pulmonary embolus. Lungs: Background pulmonary pattern consistent with underlying COPD/emphysema with scar at the left lung apex. A few tiny scattered pulmonary nodules are present bilaterally the largest on the left measuring about 4 mm, on image 41. Nonspecific. There is mild subpleural reticulation in the lungs bilaterally consistent with smoking history. There is no acutely suspicious lesion. CT/Chest WITH Contrast IMPRESSION: Left lung apical scar consistent with prior resection. Scattered small pulmonary nodules are nonspecific and should be followed according to the Fleischner Society Criteria. At a minimum and low dose screening chest CT is recommended in 1 year. COPD/emphysema. Electronically Signed: Glen Stevenson, at 17:01 EDT Tel , Service support ,
[2018-01-13 14:25] LABS: Hematocrit 34.1 % (40-54); Hemoglobin 10.4 g/dl (13.0-16.5); Mean Corpuscular Volume 87.4 fL (80-94); White Blood Count 9.3 K/mm3 (4.4-11.0)
[2018-01-13 14:26] LABS: Basophil% 0.3 % (0-1); Eosinophils% 1.6 % (0-5); Lymphocyte % 12.6 % (19-41); Mean Corp Hgb Conc 30.5 g/gl (32-36); Mean Corpuscular Hgb 26.7 pg (27.0-32.0); Mean Platelet Vol. 9.8 fl (6.2-12.0); Monocyte% 9.7 % (0-10); Neutrophil # 7.05 X10^3/uL (2.7-7.7); Neutrophil % 75.7 % (47-70); POSITIVE COUNT NO; POSITIVE DIFFERENTIAL NO; POSITIVE MORPHOLOGY NO; Platelet Count 259 K/mm3 (150-450); RBC Distribution Width CV 16.1 % (11.6-14.6); RBC Distribution Width SD 51.8 fl (35.1-43.9)
[2018-01-13 14:27] LABS: Absolute Lymphocyte Count 1.17 X10^3/ul (0.83-4.51); Absolute Neutrophil Count 7.1 X10^3/uL (2.0-7.7); Basophil# 0.03 X10^3/uL; Eosinophil# 0.15 X10^3/uL; Lymphocyte # 1.17 X10^3/ul (4.0)
[2018-01-13 14:53] LABS: ALB/GLOB Ratio 0.9 RATIO (0.9-2.4); AST(SGOT) 19 U/L (15-37); Alanine Aminotransfer ALT/SGPT 15 U/L (16-61); Alkaline Phosphatase 74 U/L (45-117); Anion Gap 7 (5-15); BUN 12 mg/dL (7-18); BUN/Creat Ratio 11.3 RATIO (10-20); Calcium,Total 8.4 mg/dL (8.5-10.1); Chloride 105 mmol/L (98-107); Creatinine, Serum 1.06 mg/dL (0.70-1.30); EST Glomerular Filtration Rate 73 mL/min (>60); Est Glom Filt Rate - Afr Amer 88 mL/min (>60); Ferritin 28 ng/mL (26-388); Globulin 3.4 g/dL (2.2-4.2); Glucose 135 mg/dL (74-106); Iron 26 ug/dL (65-175); Iron Binding Capacity,Total 381 ug/dL (250-450); PERCENT IRON SATURATION 6.8 % (15.0-55.0); Potassium 3.9 mmol/L (3.5-5.1); Protein, Total 6.4 g/dL (6.4-8.2); Sodium Level 143 mmol/L (136-145)
[2018-01-13 22:16] LABS: Xtra Tube EP Lab EXTRA TUBE
== END ==
PROVIDERS: Family Provider Internal Medicine; PCP Internal Medicine; Visit Provider Internal Medicine Hematology & Oncology
DX: C34.12 Malignant neoplasm of upper lobe, left bronchus or lung (principal); D50.0 Iron deficiency anemia secondary to blood loss (chronic); D64.81 Anemia due to antineoplastic chemotherapy; D64.9 Anemia, unspecified
CPT/HCPCS: 71260; 74160; 80053; 82728; 83540; 83550; 85025; Q9967; A4216

== ENCOUNTER 2018-03-19 14:22 | Observation (INO) | payer MEDICARE, OTHER, SELFPAY ==
[2018-03-19 14:38] VITALS: BMI 38.9; BMI 39.0
[2018-03-19 14:52] VITALS: BP 153/55; PULSE 86; RESP 18; TEMP 36.9; O2SAT 98
--- NOTE | 2018-03-19 15:08 | MRI_ITS ---
STUDY: MRI LEFT FOREFOOT WITHOUT CONTRAST REASON FOR EXAM: Male, 72 years old. Cellulitis of the great toe. TECHNIQUE: Standardized fat and water weighted pulse sequences were obtained in all 3 orthogonal planes. COMPARISON: None. FINDINGS: There is degenerative arthrosis of the metatarsophalangeal joint of the hallux. Normal tibial and fibular sesamoids, with normal sesamoids-first metatarsal articulations. There is degenerative arthrosis of the interphalangeal joint of the hallus. Normal proximal and distal phalanges of the great toe. There is soft tissue swelling of the great toe. Normal medial and lateral heads of the flexor hallucis brevis tendons. Normal flexor and extensor hallucis longus tendons. Normal second through fifth metatarsophalangeal (MTP) joints. Normal interphalangeal joints of the second through fifth toes. Normal proximal, middle and distal phalanges of the second through fifth toes. Normal first through fourth intermetatarsal spaces. Normal flexor and extensor tendons of the second through fifth toes. Normal visualized metatarsi. There is diffuse atrophy of the intrinsic muscles of the forefoot consistent with a peripheral neuropathy. There is no demonstrated soft tissue mass or fluid collection. MRI/Lower Ext/No Jt/w/o IMPRESSION: Swelling of the first toe. No MRI evidence of osteomyelitis. Electronically Signed: Carlos Wilson MD at 19:49 EDT , Service support ,
--- NOTE | 2018-03-19 15:10 | PCM.HP.STD ---
Problem List (1) Left leg cellulitis Status: Acute History of Present Illness Date of Admission: 03/19/18 Chief Complaint: Left leg redness The patient is a 72 year old M who has had a chronic ulcer on his left great toe for several months. He has been seeing podiatry and wound care for this. Today, patient noted redness extending up from that ulcer up his medial leg and thigh. Patient saw Dr. Chatman, of podiatry, and was concerned for the rapid onset of cellulitis in a patient with known ulcer and chronic medical conditions and advised patient be admitted started on IV antibiotics and have an MRI of his foot. Patient notes no changes in his ulcer and has been otherwise stable. Denies any recent trauma to it as well. Denies any other somatic complaints other than just the redness. States that otherwise feels well and he has no fever or chills. This is similar to prior episodes of cellulitis but at that time he stated that he waited too long and got very ill by the time he presented to the hospital. [] Past Medical History Past Medical History (Chronic Problems): Chronic Problems (Last Reviewed 03/02/18 @ 15:18 by Maggie Astudillo) Chronic atrial fibrillation (Chronic) angiolasty and stenting to BLE iliac arteries (Chronic 08/04/12) History of left heart catheterization (Chronic 12/04/16) Widely patent HERRERA and SVG grafts per [facility] 05/07/[address] Garcia [facility]; [facility] 05/16/[address] Naylor @ [facility] History of coronary artery stent placement (Chronic 12/23/06) IPI-[id number]-[id number] anastomosis-LAD w/ Taxus 2.75 x 8 mm and POBA-PDA 12/23/2006 History of cardioversion (Chronic 12/2016) Iron deficiency anemia due to chronic blood loss (Chronic) Gastric AVMs, September 2017 Cancer of upper lobe of left lung (Chronic) Secondary pulmonary arterial hypertension (Chronic) Atherosclerosis of coronary artery of [place] heart without angina pectoris (Chronic) CABG x 2 HERRERA-LAD, SVG-OM 02/14/2006 [id number] anastomosis-LAD w/ Taxus 2.75 x 8 mm and POBA-PDA 12/23/2006 H/O coronary artery bypass surgery (Chronic 02/14/06) CABG x 2 HERRERA-LAD, SVG-OM 02/14/[address] Fei Castillo, [facility] 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 (Chronic) Medical History: Medical History (Last Reviewed 03/19/18 @ 15:11 by Titi Moore DO) GI bleed (Acute) K92.2 tsferred to [facility], transfused with 2 units PRBC's. Chronic atrial fibrillation (Chronic) I48.2 port placement (Acute) Secondary pulmonary arterial hypertension (Chronic) I27.21 Atherosclerosis of coronary artery of [place] heart without angina pectoris (Chronic) I25.10 CABG x 2 HERRERA-LAD, SVG-OM 02/14/2006 EWN-ORX-HAPV anastomosis-LAD w/ Taxus 2.75 x 8 mm and POBA-PDA 12/23/2006 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 (Chronic) C34.12 Chemotherapy induced neutropenia (Acute) D70.1, T45.1X5A Anemia (Acute) D64.9 COPD (chronic obstructive pulmonary disease) (Acute) J44.9 Dyspnea (Acute) R06.00 Diabetes (Acute) E11.9 Neuropathy (Acute) G62.9 Arthritis (Acute) M19.90 Obesity (Acute) E66.9 Alcohol dependence (Acute) F10.20 GERD (gastroesophageal reflux disease) (Acute) K21.9 DJD (degenerative joint disease) (Acute) M19.90 Vascular disease (Acute) I99.9 Renal disease (Acute) N28.9 Macular degeneration (Acute) H35.30 Arrhythmia (Acute) I49.9 Migraine (Acute) G43.909 Memory loss (Acute) R41.3 Hypotestosteronism (Acute) E34.9 Essential tremor (Acute) G25.0 Parkinsons (Acute) G20 Dementia (Acute) F03.90 HEBER (obstructive sleep apnea) (Acute) G47.33 Benign essential hypertension (Acute) I10 Hammertoes of both feet (Acute) M20.41, M20.42 Allergies No Known Allergies Allergy (Verified 03/02/18 15:21) Home Medications: Ambulatory Orders Medication Instructions Recorded Fenofibrate [Tricor] 145 mg PO LUNCH 05/06/13 Folic Acid 1 mg PO DAILY@1200 05/06/13 Tiotropium [place] [Spiriva 18 MCG] 1 puff INHALATION DAILY 05/06/13 Duloxetine HCl 60 mg PO 1600 12/04/16 Pramipexole Di-HCl [Mirapex] 0.5 mg PO TID 12/04/16 aspirin 81 mg tablet,delayed 81 mg PO QDAY 10/06/17 release cyanocobalamin (vit B-12) 1,000 1,000 mcg PO DAILY@1200 10/20/17 mcg tablet docusate sodium 100 mg capsule 100 mg PO BID cap 10/20/17 gabapentin 600 mg tablet 1,200 mg PO QHS tab 10/20/17 Budesonide [Pulmicort] 0.25 mg IH TID 10/23/17 Formoterol Fumarate [Perforomist] 20 mcg INHALATION BID 12/22/17 Multivit-Min/Iron Fum/Folic AC 1 ea PO BID 12/22/17 [Wawan-Drqwagl-Deozpzqu Tablet] Omeprazole 20 mg PO DAILY@1700 12/22/17 Digoxin 0.25 mg PO DAILY 01/27/18 furosemide 20 mg tablet 20 mg PO QODAY 02/25/18 furosemide 40 mg tablet 40 mg PO QODAY tab 02/25/18 rivaroxaban 10 mg tablet 10 mg PO DAILY 02/25/18 losartan 25 mg tablet 25 mg PO DAILY 03/02/18 Metoprolol Tartrate 25 mg PO QHS 03/19/18 Potassium Chloride [K-Tab ER] 20 meq PO DAILY 03/19/18 Pravastatin Sodium 40 mg PO QHS 03/19/18 Senna [Senokot] 1 tablet PO DINNER 03/19/18 Surgical History: Surgical History (Last Reviewed 03/19/18 @ 15:11 by Titi Moore DO) angiolasty and stenting to BLE iliac arteries (Chronic) Onset Date: 08/04/12 History of left heart catheterization (Chronic) Onset Date: 12/04/16 Z98.890 Widely patent HERRERA and SVG grafts per [facility] 05/07/[address] Garcia [facility]; [facility] 05/16/[address] Naylor @ [facility] History of coronary artery stent placement (Chronic) Onset Date: 12/23/06 Z95.5 QOE-[id number]-GUJD anastomosis-LAD w/ Taxus 2.75 x 8 mm and POBA-PDA 12/23/2006 Left VATS procedure with wedge resection KATIE (Acute) History of cardioversion (Chronic) Onset Date: 12/2016 Z98.890 H/O coronary artery bypass surgery (Chronic) Onset Date: 02/14/06 Z95.1 CABG x 2 HERRERA-LAD, SVG-OM 02/14/[address] Fei Castillo, [facility] S/P CABG x 2 (Acute) Z95.1 Psychiatric History: No pertinent psych hx Lives: Spouse/ Significant Other Smoking Status: Former smoker Alcohol: Occasional - Drinks 2 small glasses of wine per day Drugs: None - *Family History Maternal Family History: Family History (Last Reviewed 03/19/18 @ 15:12 by Titi Moore DO) Sister Alcoholism Cancer Mother Arthritis Father Arthritis Brother Cancer Review of Systems Constitutional: Denies: Chills, Fever, Weight Change Eyes: Denies: Blurred vision, Double vision HEENT: Denies: Head Aches, Sinus Congestion, Sinus Drainage Cardiovascular: Denies: Chest Pain, Palpitations Respiratory: Denies: Cough, Shortness of breath at rest, Sputum production Gastrointestinal: Denies: Abdominal Pain, Nausea, Vomiting Genitourinary: Denies: Dysuria Musculoskeletal: Denies: Joint Pain, Joint Tenderness Skin: Reports: Wounds, - - Erythema left foot and leg Neurological: Reports: - - Lower extremity neuropathy. Denies: Balance problems Psychiatric: Denies: Anxiety, Depression Endocrine: Denies: Change in Body Habitus, Heat/ Cold Intolerance Hematologic/ Lymphatic: Denies: Easy Bruising, Easy Bleeding, Hx of blood clot Comment: All review of systems are negative except as mentioned in the history of present illness and the other review of systems. VTE Information - Inpt Only VTE Present on Admission: No VTE Pharm Prophylaxis ordered?: Yes Patient Problems: Active and Suspected Problems (Last Reviewed 03/02/18 @ 15:18 by Maggie Astudillo) Left leg cellulitis (Acute) - Physical Exam General: Alert, Cooperative, No apparent distress HEENT: Atraumatic, EOMI, Normocephalic, - - No scleral icterus Oral: Moist Mucosa, No Gingival or Mucosal Lesions/ Ulcerations Neck: No Nodes, Thyroid Normal Size and Texture Lungs: Clear to auscultation, Normal air movement, No rhonchi, No wheeze Cardiovascular: Regular rate, Regular Rhythm, Normal S1, Normal S2, No murmurs Abdomen: Bowel Sounds Present, Soft, Non Tender, Non-Distended, No Hepato-splenomegaly Extremities: No edema, No Calf Tenderness Skin: - - Ulcer on the medial left great toe. No purulence could be expressed. No fluctuance. Patient does have erythema extending up from the toe with lymphangitis up into his ankle he does have an area of macular erythema and then another area of lymphangitis extending up into his medial thigh. Musculoskeletal: No Tenderness to Palpation of Joints or Extremities, No Muscle Wasting Neurological: Neuro grossly intact, Sensory exam intact to light touch and pain Psych/Mental Status: Normal Affect, Appropriate Vital Signs Temp Pulse Resp BP Pulse Ox 36.9 C 86 18 153/55 H 98 03/19/18 14:52 03/19/18 14:52 03/19/18 14:52 03/19/18 14:52 03/19/18 14:52 Oxygen Delivery Method Room Air Weight: 123.196 kg Body Mass Index (BMI) 38.9 Assessment/Plan All Active Problems (Last Reviewed 03/02/18 @ 15:18 by Maggie Astudillo) Left leg cellulitis (Acute) Educational circumstance (Acute) Cellulitis (Acute) GI bleed (Acute) Left VATS procedure with wedge resection KATIE (Acute) port placement (Acute) Educational circumstance (Acute) Antineoplastic chemotherapy induced anemia (Acute) Constipation (Acute) Chemotherapy induced neutropenia (Acute) Anemia (Acute) COPD (chronic obstructive pulmonary disease) (Acute) Dyspnea (Acute) Diabetes (Acute) Neuropathy (Acute) Arthritis (Acute) Obesity (Acute) Alcohol dependence (Acute) GERD (gastroesophageal reflux disease) (Acute) DJD (degenerative joint disease) (Acute) Vascular disease (Acute) Renal disease (Acute) Macular degeneration (Acute) Arrhythmia (Acute) Migraine (Acute) Memory loss (Acute) Hypotestosteronism (Acute) Essential tremor (Acute) Parkinsons (Acute) Dementia (Acute) HEBER (obstructive sleep apnea) (Acute) Benign essential hypertension (Acute) Hammertoes of both feet (Acute) S/P CABG x 2 (Acute) 1. Acute left lower extremity cellulitis Nidus of infection is likely due to his left great toe ulcer Given the rapid onset, I am concerned about staph Will start the patient on vancomycin Check an MRI of his foot Check cultures of his foot Based on MRI reports if there is an abscess or evidence of osteomyelitis then podiatry be consulted at that time. The patient has no evidence of any abscess or osteomyelitis and patient has a great improvement on the fifth, then it is possible that the patient could be discharged to home with oral antibiotics. 2. Diabetes mellitus type 2 Diet controlled at home We will add a sliding scale insulin while he is here what fluctuations of his blood sugar with the underlying infection 3. Atrial fibrillation Rate controlled Continue with metoprolol and digoxin Continue with Xarelto 4. Advanced care planning: Discussed CPR, intubation and PEG tube's. Patient wishes to be full code with intubation and PEG tube's at this time if needed. 5. DVT prophylaxis: Patient is anticoagulated. Code Visit OBSV E&M: [id number] Initial observation care L3
--- NOTE | 2018-03-19 15:14 | HP.PCM_ITS ---
Problem List (1) Left leg cellulitis Status: Acute History of Present Illness Date of Admission: 03/19/18 Chief Complaint: Left leg redness The patient is a 72 year old M who has had a chronic ulcer on his left great toe for several months. He has been seeing podiatry and wound care for this. Today, patient noted redness extending up from that ulcer up his medial leg and thigh. Patient saw Dr. Chatman, of podiatry, and was concerned for the rapid onset of cellulitis in a patient with known ulcer and chronic medical conditions and advised patient be admitted started on IV antibiotics and have an MRI of his foot. Patient notes no changes in his ulcer and has been otherwise stable. Denies any recent trauma to it as well. Denies any other somatic complaints other than just the redness. States that otherwise feels well and he has no fever or chills. This is similar to prior episodes of cellulitis but at that time he stated that he waited too long and got very ill by the time he presented to the hospital. [] Past Medical History Past Medical History (Chronic Problems): Chronic Problems (Last Reviewed 03/02/18 @ 15:18 by Maggie Astudillo) Chronic atrial fibrillation (Chronic) angiolasty and stenting to BLE iliac arteries (Chronic 08/04/12) History of left heart catheterization (Chronic 12/04/16) Widely patent HERRERA and SVG grafts per [facility] 05/07/[address] Garcia [facility]; [facility] 05/16/[address] Naylor @ [facility] History of coronary artery stent placement (Chronic 12/23/06) SLU-[id number] anastomosis-LAD w/ Taxus 2.75 x 8 mm and POBA-PDA 12/23/2006 History of cardioversion (Chronic 12/2016) Iron deficiency anemia due to chronic blood loss (Chronic) Gastric AVMs, September 2017 Cancer of upper lobe of left lung (Chronic) Secondary pulmonary arterial hypertension (Chronic) Atherosclerosis of coronary artery of [place] heart without angina pectoris (Chronic) CABG x 2 HERRERA-LAD, SVG-OM 02/14/2006 NDV-SJB-HHLX anastomosis-LAD w/ Taxus 2.75 x 8 mm and POBA-PDA 12/23/2006 H/O coronary artery bypass surgery (Chronic 02/14/06) CABG x 2 HERRERA-LAD, SVG-OM 02/14/[address] Fei Castillo, [facility] 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 (Chronic) Medical History: Medical History (Last Reviewed 03/19/18 @ 15:11 by Titi Moore DO) GI bleed (Acute) K92.2 tsferred to [facility], transfused with 2 units PRBC's. Chronic atrial fibrillation (Chronic) I48.2 port placement (Acute) Secondary pulmonary arterial hypertension (Chronic) I27.21 Atherosclerosis of coronary artery of [place] heart without angina pectoris (Chronic) I25.10 CABG x 2 HERRERA-LAD, SVG-OM 02/14/2006 [id number]-NEW-ADUQ anastomosis-LAD w/ Taxus 2.75 x 8 mm and POBA-PDA 12/23/2006 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 (Chronic) C34.12 Chemotherapy induced neutropenia (Acute) D70.1, T45.1X5A Anemia (Acute) D64.9 COPD (chronic obstructive pulmonary disease) (Acute) J44.9 Dyspnea (Acute) R06.00 Diabetes (Acute) E11.9 Neuropathy (Acute) G62.9 Arthritis (Acute) M19.90 Obesity (Acute) E66.9 Alcohol dependence (Acute) F10.20 GERD (gastroesophageal reflux disease) (Acute) K21.9 DJD (degenerative joint disease) (Acute) M19.90 Vascular disease (Acute) I99.9 Renal disease (Acute) N28.9 Macular degeneration (Acute) H35.30 Arrhythmia (Acute) I49.9 Migraine (Acute) G43.909 Memory loss (Acute) R41.3 Hypotestosteronism (Acute) E34.9 Essential tremor (Acute) G25.0 Parkinsons (Acute) G20 Dementia (Acute) F03.90 HEBER (obstructive sleep apnea) (Acute) G47.33 Benign essential hypertension (Acute) I10 Hammertoes of both feet (Acute) M20.41, M20.42 Allergies No Known Allergies Allergy (Verified 03/02/18 15:21) Home Medications: Ambulatory Orders Medication Instructions Recorded Fenofibrate [Tricor] 145 mg PO LUNCH 05/06/13 Folic Acid 1 mg PO DAILY@1200 05/06/13 Tiotropium [place] [Spiriva 18 MCG] 1 puff INHALATION DAILY 05/06/13 Duloxetine HCl 60 mg PO 1600 12/04/16 Pramipexole Di-HCl [Mirapex] 0.5 mg PO TID 12/04/16 aspirin 81 mg tablet,delayed 81 mg PO QDAY 10/06/17 release cyanocobalamin (vit B-12) 1,000 1,000 mcg PO DAILY@1200 10/20/17 mcg tablet docusate sodium 100 mg capsule 100 mg PO BID cap 10/20/17 gabapentin 600 mg tablet 1,200 mg PO QHS tab 10/20/17 Budesonide [Pulmicort] 0.25 mg IH TID 10/23/17 Formoterol Fumarate [Perforomist] 20 mcg INHALATION BID 12/22/17 Multivit-Min/Iron Fum/Folic AC 1 ea PO BID 12/22/17 [Dvplp-Mmalyea-Japjdngx Tablet] Omeprazole 20 mg PO DAILY@1700 12/22/17 Digoxin 0.25 mg PO DAILY 01/27/18 furosemide 20 mg tablet 20 mg PO QODAY 02/25/18 furosemide 40 mg tablet 40 mg PO QODAY tab 02/25/18 rivaroxaban 10 mg tablet 10 mg PO DAILY 02/25/18 losartan 25 mg tablet 25 mg PO DAILY 03/02/18 Metoprolol Tartrate 25 mg PO QHS 03/19/18 Potassium Chloride [K-Tab ER] 20 meq PO DAILY 03/19/18 Pravastatin Sodium 40 mg PO QHS 03/19/18 Senna [Senokot] 1 tablet PO DINNER 03/19/18 Surgical History: Surgical History (Last Reviewed 03/19/18 @ 15:11 by Titi Moore DO) angiolasty and stenting to BLE iliac arteries (Chronic) Onset Date: 08/04/12 History of left heart catheterization (Chronic) Onset Date: 12/04/16 Z98.890 Widely patent HERRERA and SVG grafts per [facility] 05/07/[address] Garcia [facility]; [facility] 05/16/[address] Naylor @ [facility] History of coronary artery stent placement (Chronic) Onset Date: 12/23/06 Z95.5 [id number]-[id number] anastomosis-LAD w/ Taxus 2.75 x 8 mm and POBA-PDA 12/23/2006 Left VATS procedure with wedge resection KATIE (Acute) History of cardioversion (Chronic) Onset Date: 12/2016 Z98.890 H/O coronary artery bypass surgery (Chronic) Onset Date: 02/14/06 Z95.1 CABG x 2 HERRERA-LAD, SVG-OM 02/14/[address] Fei Castillo, [facility] S/P CABG x 2 (Acute) Z95.1 Psychiatric History: No pertinent psych hx Lives: Spouse/ Significant Other Smoking Status: Former smoker Alcohol: Occasional - Drinks 2 small glasses of wine per day Drugs: None - *Family History Maternal Family History: Family History (Last Reviewed 03/19/18 @ 15:12 by Titi Moore DO) Sister Alcoholism Cancer Mother Arthritis Father Arthritis Brother Cancer Review of Systems Constitutional: Denies: Chills, Fever, Weight Change Eyes: Denies: Blurred vision, Double vision HEENT: Denies: Head Aches, Sinus Congestion, Sinus Drainage Cardiovascular: Denies: Chest Pain, Palpitations Respiratory: Denies: Cough, Shortness of breath at rest, Sputum production Gastrointestinal: Denies: Abdominal Pain, Nausea, Vomiting Genitourinary: Denies: Dysuria Musculoskeletal: Denies: Joint Pain, Joint Tenderness Skin: Reports: Wounds, - - Erythema left foot and leg Neurological: Reports: - - Lower extremity neuropathy. Denies: Balance problems Psychiatric: Denies: Anxiety, Depression Endocrine: Denies: Change in Body Habitus, Heat/ Cold Intolerance Hematologic/ Lymphatic: Denies: Easy Bruising, Easy Bleeding, Hx of blood clot Comment: All review of systems are negative except as mentioned in the history of present illness and the other review of systems. VTE Information - Inpt Only VTE Present on Admission: No VTE Pharm Prophylaxis ordered?: Yes Patient Problems: Active and Suspected Problems (Last Reviewed 03/02/18 @ 15:18 by Maggie Astudillo) Left leg cellulitis (Acute) - Physical Exam General: Alert, Cooperative, No apparent distress HEENT: Atraumatic, EOMI, Normocephalic, - - No scleral icterus Oral: Moist Mucosa, No Gingival or Mucosal Lesions/ Ulcerations Neck: No Nodes, Thyroid Normal Size and Texture Lungs: Clear to auscultation, Normal air movement, No rhonchi, No wheeze Cardiovascular: Regular rate, Regular Rhythm, Normal S1, Normal S2, No murmurs Abdomen: Bowel Sounds Present, Soft, Non Tender, Non-Distended, No Hepato- splenomegaly Extremities: No edema, No Calf Tenderness Skin: - - Ulcer on the medial left great toe. No purulence could be expressed. No fluctuance. Patient does have erythema extending up from the toe with lymphangitis up into his ankle he does have an area of macular erythema and then another area of lymphangitis extending up into his medial thigh. Musculoskeletal: No Tenderness to Palpation of Joints or Extremities, No Muscle Wasting Neurological: Neuro grossly intact, Sensory exam intact to light touch and pain Psych/Mental Status: Normal Affect, Appropriate Vital Signs Temp Pulse Resp BP Pulse Ox 36.9 C 86 18 153/55 H 98 03/19/18 14:52 03/19/18 14:52 03/19/18 14:52 03/19/18 14:52 03/19/18 14:52 Oxygen Delivery Method Room Air Weight: 123.196 kg Body Mass Index (BMI) 38.9 Assessment/Plan All Active Problems (Last Reviewed 03/02/18 @ 15:18 by Maggie Astudillo) Left leg cellulitis (Acute) Educational circumstance (Acute) Cellulitis (Acute) GI bleed (Acute) Left VATS procedure with wedge resection KATIE (Acute) port placement (Acute) Educational circumstance (Acute) Antineoplastic chemotherapy induced anemia (Acute) Constipation (Acute) Chemotherapy induced neutropenia (Acute) Anemia (Acute) COPD (chronic obstructive pulmonary disease) (Acute) Dyspnea (Acute) Diabetes (Acute) Neuropathy (Acute) Arthritis (Acute) Obesity (Acute) Alcohol dependence (Acute) GERD (gastroesophageal reflux disease) (Acute) DJD (degenerative joint disease) (Acute) Vascular disease (Acute) Renal disease (Acute) Macular degeneration (Acute) Arrhythmia (Acute) Migraine (Acute) Memory loss (Acute) Hypotestosteronism (Acute) Essential tremor (Acute) Parkinsons (Acute) Dementia (Acute) HEBER (obstructive sleep apnea) (Acute) Benign essential hypertension (Acute) Hammertoes of both feet (Acute) S/P CABG x 2 (Acute) 1. Acute left lower extremity cellulitis * Nidus of infection is likely due to his left great toe ulcer * Given the rapid onset, I am concerned about staph * Will start the patient on vancomycin * Check an MRI of his foot * Check cultures of his foot * Based on MRI reports if there is an abscess or evidence of osteomyelitis then podiatry be consulted at that time. * The patient has no evidence of any abscess or osteomyelitis and patient has a great improvement on the fifth, then it is possible that the patient could be discharged to home with oral antibiotics. 2. Diabetes mellitus type 2 * Diet controlled at home * We will add a sliding scale insulin while he is here what fluctuations of his blood sugar with the underlying infection 3. Atrial fibrillation * Rate controlled * Continue with metoprolol and digoxin * Continue with Xarelto 4. Advanced care planning: Discussed CPR, intubation and PEG tube's. Patient wishes to be full code with intubation and PEG tube's at this time if needed. 5. DVT prophylaxis: Patient is anticoagulated. Code Visit OBSV E&M: [id number] Initial observation care L3
[2018-03-19 16:26] LABS: Bedside Glucose 118 mg/dL (70-110)
[2018-03-19 16:54] LABS: Absolute Lymphocyte Count 1.24 X10^3/ul (0.83-4.51); Absolute Neutrophil Count 10.2 X10^3/uL (2.0-7.7); Basophil# 0.03 X10^3/uL; Basophil% 0.2 % (0-1); Eosinophil# 0.16 X10^3/uL; Eosinophils% 1.2 % (0-5); Hematocrit 35.5 % (40-54); Hemoglobin 10.9 g/dl (13.0-16.5); Lymphocyte # 1.24 X10^3/ul (4.0); Lymphocyte % 9.6 % (19-41); Mean Corp Hgb Conc 30.7 g/gl (32-36); Mean Corpuscular Hgb 26.3 pg (27.0-32.0); Mean Corpuscular Volume 85.5 fL (80-94); Mean Platelet Vol. 9.9 fl (6.2-12.0); Monocyte# 1.21 X10^3/uL; Monocyte% 9.4 % (0-10); Neutrophil # 10.21 X10^3/uL (2.7-7.7); Neutrophil % 79.4 % (47-70); Platelet Count 248 K/mm3 (150-450); RBC Distribution Width CV 18.7 % (11.6-14.6); RBC Distribution Width SD 57.6 fl (35.1-43.9); Red Blood Count 4.15 M/mm3 (4.6-6.2); White Blood Count 12.9 K/mm3 (4.4-11.0)
[2018-03-19 16:59] LABS: POSITIVE COUNT NO; POSITIVE DIFFERENTIAL NO; POSITIVE MORPHOLOGY NO
[2018-03-19 17:01] LABS: Anion Gap 5 (5-15); BUN 12 mg/dL (7-18); Calcium,Total 8.2 mg/dL (8.5-10.1); Chloride 106 mmol/L (98-107); EST Glomerular Filtration Rate 78 mL/min (>60); Est Glom Filt Rate - Afr Amer 94 mL/min (>60); Estimated Creatinine Clearance 68.94 ml/min; Glucose 121 mg/dL (74-106); Potassium 3.5 mmol/L (3.5-5.1); Sodium Level 143 mmol/L (136-145)
[2018-03-19 17:04] LABS: Erythrocyte Sedimentation Rate 31 mm/hr (0-20)
[2018-03-19] MEDS: Pantoprazole Sodium 20 MG Tablet PO (17:08)
[2018-03-19] MEDS: Senna Tablet 1 TABLET PO (17:09)
[2018-03-19] MEDS: DULoxetine Hcl 60 MG Capsule PO (17:09)
[2018-03-19] MEDS: Glucerna Shake 120 ML LIQUID PO ×2 (17:12→22:06)
[2018-03-19] MEDS: Multivitamins,Ther W-Minerals Tablet 1 TABLET PO (17:50)
[2018-03-19 19:15] VITALS: PULSE 99; RESP 18
[2018-03-19] MEDS: Ipratropium/Albuterol Sulfate 3 ML AMPUL.NEB INHALATION (19:15)
--- NOTE | 2018-03-19 19:28 | PCM.CONS.GEN ---
Problem List (1) Left leg cellulitis Status: Chronic (2) Cellulitis Status: Chronic (3) Neuropathy Status: Acute (4) Non-pressure chronic ulcer of other part of left foot with fat layer exposed Status: Acute Reason for Consult Date of Consultation: 03/19/18 Reason for Consultation: infection left foot and leg History of Present Illness: The patient is a 72 year old M seen for ulcer of the left great toe with intermittent presentation of a couple of months. He has been treated at several facilities. [facility] with worsening redness, swelling and warmth and generalized fatigue. The redness began two days ago and has progressed. He denies new trauma. Past Medical History Past Medical History (Chronic Problems): Chronic Problems (Last Reviewed 03/19/18 @ 15:11 by Titi Moore DO) Left leg cellulitis (Chronic) Cellulitis (Chronic) Chronic atrial fibrillation (Chronic) angiolasty and stenting to BLE iliac arteries (Chronic 08/04/12) History of left heart catheterization (Chronic 12/04/16) Widely patent HERRERA and SVG grafts per [facility] 05/07/[address] Garcia [facility]; [facility] 05/16/[address] Naylor @ [facility] History of coronary artery stent placement (Chronic 12/23/06) ISR-IAT-UYHU anastomosis-LAD w/ Taxus 2.75 x 8 mm and POBA-PDA 12/23/2006 History of cardioversion (Chronic 12/2016) Iron deficiency anemia due to chronic blood loss (Chronic) Gastric AVMs, September 2017 Cancer of upper lobe of left lung (Chronic) Secondary pulmonary arterial hypertension (Chronic) Atherosclerosis of coronary artery of [place] heart without angina pectoris (Chronic) CABG x 2 HERRERA-LAD, SVG-OM 02/14/2006 [id number] anastomosis-LAD w/ Taxus 2.75 x 8 mm and POBA-PDA 12/23/2006 H/O coronary artery bypass surgery (Chronic 02/14/06) CABG x 2 HERRERA-LAD, SVG-OM 02/14/[address] Fei Castillo, [facility] 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 (Chronic) Medical History: Medical History (Last Reviewed 03/19/18 @ 15:11 by Titi Moore DO) GI bleed (Acute) K92.2 tsferred to [facility], transfused with 2 units PRBC's. Chronic atrial fibrillation (Chronic) I48.2 port placement (Acute) Secondary pulmonary arterial hypertension (Chronic) I27.21 Atherosclerosis of coronary artery of [place] heart without angina pectoris (Chronic) I25.10 CABG x 2 HERRERA-LAD, SVG-OM 02/14/2006 XHR-HJK-YTWT anastomosis-LAD w/ Taxus 2.75 x 8 mm and POBA-PDA 12/23/2006 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 (Chronic) C34.12 Chemotherapy induced neutropenia (Acute) D70.1, T45.1X5A Anemia (Acute) D64.9 COPD (chronic obstructive pulmonary disease) (Acute) J44.9 Dyspnea (Acute) R06.00 Diabetes (Acute) E11.9 Neuropathy (Acute) G62.9 Arthritis (Acute) M19.90 Obesity (Acute) E66.9 Alcohol dependence (Acute) F10.20 GERD (gastroesophageal reflux disease) (Acute) K21.9 DJD (degenerative joint disease) (Acute) M19.90 Vascular disease (Acute) I99.9 Renal disease (Acute) N28.9 Macular degeneration (Acute) H35.30 Arrhythmia (Acute) I49.9 Migraine (Acute) G43.909 Memory loss (Acute) R41.3 Hypotestosteronism (Acute) E34.9 Essential tremor (Acute) G25.0 Parkinsons (Acute) G20 Dementia (Acute) F03.90 HEBER (obstructive sleep apnea) (Acute) G47.33 Benign essential hypertension (Acute) I10 Hammertoes of both feet (Acute) M20.41, M20.42 Allergies No Known Allergies Allergy (Verified 03/02/18 15:21) Home Medications: Ambulatory Orders Medication Instructions Recorded Fenofibrate [Tricor] 145 mg PO LUNCH 05/06/13 Folic Acid 1 mg PO DAILY@1200 05/06/13 Tiotropium [place] [Spiriva 18 MCG] 1 puff INHALATION DAILY 05/06/13 Duloxetine HCl 60 mg PO 1600 12/04/16 Pramipexole Di-HCl [Mirapex] 0.5 mg PO TID 12/04/16 aspirin 81 mg tablet,delayed 81 mg PO QDAY 10/06/17 release cyanocobalamin (vit B-12) 1,000 1,000 mcg PO DAILY@1200 10/20/17 mcg tablet docusate sodium 100 mg capsule 100 mg PO BID cap 10/20/17 gabapentin 600 mg tablet 1,200 mg PO QHS tab 10/20/17 Budesonide [Pulmicort] 0.25 mg IH TID 10/23/17 Formoterol Fumarate [Perforomist] 20 mcg INHALATION BID 12/22/17 Multivit-Min/Iron Fum/Folic AC 1 ea PO BID 12/22/17 [Ssmke-Ajydzxh-Tervwgqq Tablet] Omeprazole 20 mg PO DAILY@1700 12/22/17 Digoxin 0.25 mg PO DAILY 01/27/18 furosemide 20 mg tablet 20 mg PO QODAY 02/25/18 furosemide 40 mg tablet 40 mg PO QODAY tab 02/25/18 rivaroxaban 10 mg tablet 10 mg PO DAILY 02/25/18 losartan 25 mg tablet 25 mg PO DAILY 03/02/18 Metoprolol Tartrate 25 mg PO QHS 03/19/18 Potassium Chloride [K-Tab ER] 20 meq PO DAILY 03/19/18 Pravastatin Sodium 40 mg PO QHS 03/19/18 Senna [Senokot] 1 tablet PO DINNER 03/19/18 Surgical History: Surgical History (Last Reviewed 03/19/18 @ 15:11 by Titi Moore DO) angiolasty and stenting to BLE iliac arteries (Chronic) Onset Date: 08/04/12 History of left heart catheterization (Chronic) Onset Date: 12/04/16 Z98.890 Widely patent HERRERA and SVG grafts per [facility] 05/07/[address] Garcia [facility]; [facility] 05/16/[address] Naylor @ [facility] History of coronary artery stent placement (Chronic) Onset Date: 12/23/06 Z95.5 JBE-KRL-WCLM anastomosis-LAD w/ Taxus 2.75 x 8 mm and POBA-PDA 12/23/2006 Left VATS procedure with wedge resection KATIE (Acute) History of cardioversion (Chronic) Onset Date: 12/2016 Z98.890 H/O coronary artery bypass surgery (Chronic) Onset Date: 02/14/06 Z95.1 CABG x 2 HERRERA-LAD, SVG-OM 02/14/[address] Fei Castillo, [facility] S/P CABG x 2 (Acute) Z95.1 Psychiatric History: No pertinent psych hx Lives: Spouse/ Significant Other Smoking Status: Former smoker Alcohol: Occasional - Drinks 2 small glasses of wine per day Drugs: None - *Family History Maternal Family History: Family History (Last Reviewed 03/19/18 @ 15:12 by Titi Moore DO) Sister Alcoholism Cancer Mother Arthritis Father Arthritis Brother Cancer Review of Systems Constitutional: Reports: Malaise, Weakness. Denies: Chills, Fever Cardiovascular: Denies: Chest Pain, Claudication Gastrointestinal: Denies: Nausea, Vomiting Musculoskeletal: Denies: Foot Pain, Leg Pain Skin: Reports: Skin Changes, Wounds Neurological: Reports: Balance problems, Incoordination, Numbness, Tingling Patient Problems: Active and Suspected Problems (Last Reviewed 03/19/18 @ 15:11 by Titi Moore DO) Non-pressure chronic ulcer of other part of left foot with fat layer exposed (Acute) - Physical Exam General: Alert, Oriented x3, Cooperative HEENT: Atraumatic Extremities: Capillary Refill Less than 3 Seconds, No Calf Tenderness - negative gisela and weinstein sign bilateral, Diminished Peripheral Pulses, Edema - left lower extremity, - - indurated left leg and thigh with streaking noted Skin: Ulcer/ Wound - plantar medial hallux without probe to bone. There is moist callous and intense erythema to the entire aspect. no purulence or necrosis on expression. Musculoskeletal: - - hallux malleolus position noted pain to palpate left hallux Neurological: - - lack of epicritic sensation via light touch consistent with neuropathy status Psych/Mental Status: Normal Affect, Appropriate, Flat Affect Vital Signs Temp Pulse Resp BP Pulse Ox 98.5 F 86 18 153/55 H 98 03/19/18 14:52 03/19/18 14:52 03/19/18 14:52 03/19/18 14:52 03/19/18 14:52 Oxygen Delivery Method Room Air Weight: 123.196 kg Body Mass Index (BMI) 38.9 Intake and Output for Last 24 Hours 03/17/18 03/18/18 03/19/18 23:59 23:59 23:59 Intake Total 150 / 150 Balance 150 / 150 Laboratory Tests Past 24 Hrs 03/19/18 03/19/18 03/19/18 12:00 16:18 16:38 WBC 12.9 H RBC 4.15 L Hgb 10.9 L Hct 35.5 L MCV 85.5 MCH 26.3 L MCHC 30.7 L RDW 18.7 H RDW Differential 57.6 H Plt Count 248 MPV 9.9 Immature Gran % (Auto) 0.200 Neut % (Auto) 79.4 H Lymph % (Auto) 9.6 L [place] % (Auto) 9.4 Eos % (Auto) 1.2 Baso % (Auto) 0.2 Absolute Neuts (auto) 10.2 H Absolute Lymphs (auto) 1.24 Total Counted Not Reportable ESR 31 H Sodium Potassium Chloride Carbon Dioxide Anion Gap BUN Creatinine Estim Creat Clear Calc Est GFR (MDRD) Af Amer Est GFR (MDRD) Non-Af BUN/Creatinine Ratio Glucose Calcium S.aureus Protein A PCR Pending MRSA (PCR) Pending POC Glucose 118 H 03/19/18 16:38 WBC RBC Hgb Hct MCV MCH MCHC RDW RDW Differential Plt Count MPV Immature Gran % (Auto) Neut % (Auto) Lymph % (Auto) [place] % (Auto) Eos % (Auto) Baso % (Auto) Absolute Neuts (auto) Absolute Lymphs (auto) Total Counted ESR Sodium 143 Potassium 3.5 Chloride 106 Carbon Dioxide 32.0 Anion Gap 5 BUN 12 Creatinine 1.00 Estim Creat Clear Calc 68.94 Est GFR (MDRD) Af Amer 94 Est GFR (MDRD) Non-Af 78 BUN/Creatinine Ratio 12.0 Glucose 121 H Calcium 8.2 L S.aureus Protein A PCR MRSA (PCR) POC Glucose POC Glucose 03/19/18 16:18 POC Glucose 118 H Assessment/Plan All Active Problems (Last Reviewed 03/19/18 @ 15:11 by Titi Moore DO) Non-pressure chronic ulcer of other part of left foot with fat layer exposed (Acute) Educational circumstance (Acute) GI bleed (Acute) Left VATS procedure with wedge resection KATIE (Acute) port placement (Acute) Educational circumstance (Acute) Antineoplastic chemotherapy induced anemia (Acute) Constipation (Acute) Chemotherapy induced neutropenia (Acute) Anemia (Acute) COPD (chronic obstructive pulmonary disease) (Acute) Dyspnea (Acute) Diabetes (Acute) Neuropathy (Acute) Arthritis (Acute) Obesity (Acute) Alcohol dependence (Acute) GERD (gastroesophageal reflux disease) (Acute) DJD (degenerative joint disease) (Acute) Vascular disease (Acute) Renal disease (Acute) Macular degeneration (Acute) Arrhythmia (Acute) Migraine (Acute) Memory loss (Acute) Hypotestosteronism (Acute) Essential tremor (Acute) Parkinsons (Acute) Dementia (Acute) HEBER (obstructive sleep apnea) (Acute) Benign essential hypertension (Acute) Hammertoes of both feet (Acute) S/P CABG x 2 (Acute) 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 There is concern for rapid onset moderate level infection; the erythema location was marked with a pen. I recommended admission/observation for IV antibiotics and further work up. Xray and MRI final reports are pending. I reviewed the imaging and do not appreciate acute osseous destruction, osteomyelitis or abscess. Wound culture was obtained after excisional subcutaneous debridement (15 blade in clinic to excise non viable, fibrous, devitalized subcutaneous, biofilm tissue predebridement 0.2 x 0.2 x 0.2 cm and post debridement 0.9 x 0.5 x0.2 cm) . He tolerated the debridement well. The culture results are pending. WBC is elevated at 12.9, esr 31; will monitor. Pending imaging results and response to IV broad spectrum antibiotics, further antibiotics versus procedure intervention will be considered. He was advised to keep pressure off of this site. Dr. Kruger will re evaluate this patient tomorrow to check on progress. Please do not hesitate to call if there are any additional questions or concerns. Gloria Chatman DPM, [facility] [phone]
--- NOTE | 2018-03-19 19:33 | CON.PCM_ITS ---
Problem List (1) Left leg cellulitis Status: Chronic (2) Cellulitis Status: Chronic (3) Neuropathy Status: Acute (4) Non-pressure chronic ulcer of other part of left foot with fat layer exposed Status: Acute Reason for Consult Date of Consultation: 03/19/18 Reason for Consultation: infection left foot and leg History of Present Illness: The patient is a 72 year old M seen for ulcer of the left great toe with intermittent presentation of a couple of months. He has been treated at several facilities. He [facility] to [facility] yesterday with worsening redness, swelling and warmth and generalized fatigue. The redness began two days ago and has progressed. He denies new trauma. Past Medical History Past Medical History (Chronic Problems): Chronic Problems (Last Reviewed 03/19/18 @ 15:11 by Titi Moore DO) Left leg cellulitis (Chronic) Cellulitis (Chronic) Chronic atrial fibrillation (Chronic) angiolasty and stenting to BLE iliac arteries (Chronic 08/04/12) History of left heart catheterization (Chronic 12/04/16) Widely patent HERRERA and SVG grafts per [facility] 05/07/[address] Garcia [facility]; [facility] 05/16/[address] Naylor @ [facility] History of coronary artery stent placement (Chronic 12/23/06) HIV-ANV-UNJK anastomosis-LAD w/ Taxus 2.75 x 8 mm and POBA-PDA 12/23/2006 History of cardioversion (Chronic 12/2016) Iron deficiency anemia due to chronic blood loss (Chronic) Gastric AVMs, September 2017 Cancer of upper lobe of left lung (Chronic) Secondary pulmonary arterial hypertension (Chronic) Atherosclerosis of coronary artery of [place] heart without angina pectoris (Chronic) CABG x 2 HERRERA-LAD, SVG-OM 02/14/2006 IAX-MUJ-HRIW anastomosis-LAD w/ Taxus 2.75 x 8 mm and POBA-PDA 12/23/2006 H/O coronary artery bypass surgery (Chronic 02/14/06) CABG x 2 HERRERA-LAD, SVG-OM 02/14/[address] Fei Castillo, [facility] 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 (Chronic) Medical History: Medical History (Last Reviewed 03/19/18 @ 15:11 by Titi Moore DO) GI bleed (Acute) K92.2 tsferred to [facility], transfused with 2 units PRBC's. Chronic atrial fibrillation (Chronic) I48.2 port placement (Acute) Secondary pulmonary arterial hypertension (Chronic) I27.21 Atherosclerosis of coronary artery of [place] heart without angina pectoris (Chronic) I25.10 CABG x 2 HERRERA-LAD, SVG-OM 02/14/2006 EJW-IZF-YOKK anastomosis-LAD w/ Taxus 2.75 x 8 mm and POBA-PDA 12/23/2006 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 (Chronic) C34.12 Chemotherapy induced neutropenia (Acute) D70.1, T45.1X5A Anemia (Acute) D64.9 COPD (chronic obstructive pulmonary disease) (Acute) J44.9 Dyspnea (Acute) R06.00 Diabetes (Acute) E11.9 Neuropathy (Acute) G62.9 Arthritis (Acute) M19.90 Obesity (Acute) E66.9 Alcohol dependence (Acute) F10.20 GERD (gastroesophageal reflux disease) (Acute) K21.9 DJD (degenerative joint disease) (Acute) M19.90 Vascular disease (Acute) I99.9 Renal disease (Acute) N28.9 Macular degeneration (Acute) H35.30 Arrhythmia (Acute) I49.9 Migraine (Acute) G43.909 Memory loss (Acute) R41.3 Hypotestosteronism (Acute) E34.9 Essential tremor (Acute) G25.0 Parkinsons (Acute) G20 Dementia (Acute) F03.90 HEBER (obstructive sleep apnea) (Acute) G47.33 Benign essential hypertension (Acute) I10 Hammertoes of both feet (Acute) M20.41, M20.42 Allergies No Known Allergies Allergy (Verified 03/02/18 15:21) Home Medications: Ambulatory Orders Medication Instructions Recorded Fenofibrate [Tricor] 145 mg PO LUNCH 05/06/13 Folic Acid 1 mg PO DAILY@1200 05/06/13 Tiotropium [place] [Spiriva 18 MCG] 1 puff INHALATION DAILY 05/06/13 Duloxetine HCl 60 mg PO 1600 12/04/16 Pramipexole Di-HCl [Mirapex] 0.5 mg PO TID 12/04/16 aspirin 81 mg tablet,delayed 81 mg PO QDAY 10/06/17 release cyanocobalamin (vit B-12) 1,000 1,000 mcg PO DAILY@1200 10/20/17 mcg tablet docusate sodium 100 mg capsule 100 mg PO BID cap 10/20/17 gabapentin 600 mg tablet 1,200 mg PO QHS tab 10/20/17 Budesonide [Pulmicort] 0.25 mg IH TID 10/23/17 Formoterol Fumarate [Perforomist] 20 mcg INHALATION BID 12/22/17 Multivit-Min/Iron Fum/Folic AC 1 ea PO BID 12/22/17 [Wfktf-Mmihbog-Evmwwady Tablet] Omeprazole 20 mg PO DAILY@1700 12/22/17 Digoxin 0.25 mg PO DAILY 01/27/18 furosemide 20 mg tablet 20 mg PO QODAY 02/25/18 furosemide 40 mg tablet 40 mg PO QODAY tab 02/25/18 rivaroxaban 10 mg tablet 10 mg PO DAILY 02/25/18 losartan 25 mg tablet 25 mg PO DAILY 03/02/18 Metoprolol Tartrate 25 mg PO QHS 03/19/18 Potassium Chloride [K-Tab ER] 20 meq PO DAILY 03/19/18 Pravastatin Sodium 40 mg PO QHS 03/19/18 Senna [Senokot] 1 tablet PO DINNER 03/19/18 Surgical History: Surgical History (Last Reviewed 03/19/18 @ 15:11 by Titi Moore DO) angiolasty and stenting to BLE iliac arteries (Chronic) Onset Date: 08/04/12 History of left heart catheterization (Chronic) Onset Date: 12/04/16 Z98.890 Widely patent HERRERA and SVG grafts per [facility] 05/07/[address] Garcia [facility]; [facility] 05/16/[address] Naylor @ [facility] History of coronary artery stent placement (Chronic) Onset Date: 12/23/06 Z95.5 ATR-FZD-RNOA anastomosis-LAD w/ Taxus 2.75 x 8 mm and POBA-PDA 12/23/2006 Left VATS procedure with wedge resection KATIE (Acute) History of cardioversion (Chronic) Onset Date: 12/2016 Z98.890 H/O coronary artery bypass surgery (Chronic) Onset Date: 02/14/06 Z95.1 CABG x 2 HERRERA-LAD, SVG-OM 02/14/[address] Fei Castillo, [facility] S/P CABG x 2 (Acute) Z95.1 Psychiatric History: No pertinent psych hx Lives: Spouse/ Significant Other Smoking Status: Former smoker Alcohol: Occasional - Drinks 2 small glasses of wine per day Drugs: None - *Family History Maternal Family History: Family History (Last Reviewed 03/19/18 @ 15:12 by Titi Moore DO) Sister Alcoholism Cancer Mother Arthritis Father Arthritis Brother Cancer Review of Systems Constitutional: Reports: Malaise, Weakness. Denies: Chills, Fever Cardiovascular: Denies: Chest Pain, Claudication Gastrointestinal: Denies: Nausea, Vomiting Musculoskeletal: Denies: Foot Pain, Leg Pain Skin: Reports: Skin Changes, Wounds Neurological: Reports: Balance problems, Incoordination, Numbness, Tingling Patient Problems: Active and Suspected Problems (Last Reviewed 03/19/18 @ 15:11 by Titi Moore DO) Non-pressure chronic ulcer of other part of left foot with fat layer exposed (Acute) - Physical Exam General: Alert, Oriented x3, Cooperative HEENT: Atraumatic Extremities: Capillary Refill Less than 3 Seconds, No Calf Tenderness - negative gisela and weinstein sign bilateral, Diminished Peripheral Pulses, Edema - left lower extremity, - - indurated left leg and thigh with streaking noted Skin: Ulcer/ Wound - plantar medial hallux without probe to bone. There is moist callous and intense erythema to the entire aspect. no purulence or necrosis on expression. Musculoskeletal: - - hallux malleolus position noted pain to palpate left hallux Neurological: - - lack of epicritic sensation via light touch consistent with neuropathy status Psych/Mental Status: Normal Affect, Appropriate, Flat Affect Vital Signs Temp Pulse Resp BP Pulse Ox 98.5 F 86 18 153/55 H 98 03/19/18 14:52 03/19/18 14:52 03/19/18 14:52 03/19/18 14:52 03/19/18 14:52 Oxygen Delivery Method Room Air Weight: 123.196 kg Body Mass Index (BMI) 38.9 Intake and Output for Last 24 Hours 03/17/18 03/18/18 03/19/18 23:59 23:59 23:59 Intake Total 150 / 150 Balance 150 / 150 Laboratory Tests Past 24 Hrs 03/19/18 03/19/18 03/19/18 12:00 16:18 16:38 WBC 12.9 H RBC 4.15 L Hgb 10.9 L Hct 35.5 L MCV 85.5 MCH 26.3 L MCHC 30.7 L RDW 18.7 H RDW Differential 57.6 H Plt Count 248 MPV 9.9 Immature Gran % (Auto) 0.200 Neut % (Auto) 79.4 H Lymph % (Auto) 9.6 L [place] % (Auto) 9.4 Eos % (Auto) 1.2 Baso % (Auto) 0.2 Absolute Neuts (auto) 10.2 H Absolute Lymphs (auto) 1.24 Total Counted Not Reportable ESR 31 H Sodium Potassium Chloride Carbon Dioxide Anion Gap BUN Creatinine Estim Creat Clear Calc Est GFR (MDRD) Af Amer Est GFR (MDRD) Non-Af BUN/Creatinine Ratio Glucose Calcium S.aureus Protein A PCR Pending MRSA (PCR) Pending POC Glucose 118 H 03/19/18 16:38 WBC RBC Hgb Hct MCV MCH MCHC RDW RDW Differential Plt Count MPV Immature Gran % (Auto) Neut % (Auto) Lymph % (Auto) [place] % (Auto) Eos % (Auto) Baso % (Auto) Absolute Neuts (auto) Absolute Lymphs (auto) Total Counted ESR Sodium 143 Potassium 3.5 Chloride 106 Carbon Dioxide 32.0 Anion Gap 5 BUN 12 Creatinine 1.00 Estim Creat Clear Calc 68.94 Est GFR (MDRD) Af Amer 94 Est GFR (MDRD) Non-Af 78 BUN/Creatinine Ratio 12.0 Glucose 121 H Calcium 8.2 L S.aureus Protein A PCR MRSA (PCR) POC Glucose POC Glucose 03/19/18 16:18 POC Glucose 118 H Assessment/Plan All Active Problems (Last Reviewed 03/19/18 @ 15:11 by Titi Moore DO) Non-pressure chronic ulcer of other part of left foot with fat layer exposed (Acute) Educational circumstance (Acute) GI bleed (Acute) Left VATS procedure with wedge resection KATIE (Acute) port placement (Acute) Educational circumstance (Acute) Antineoplastic chemotherapy induced anemia (Acute) Constipation (Acute) Chemotherapy induced neutropenia (Acute) Anemia (Acute) COPD (chronic obstructive pulmonary disease) (Acute) Dyspnea (Acute) Diabetes (Acute) Neuropathy (Acute) Arthritis (Acute) Obesity (Acute) Alcohol dependence (Acute) GERD (gastroesophageal reflux disease) (Acute) DJD (degenerative joint disease) (Acute) Vascular disease (Acute) Renal disease (Acute) Macular degeneration (Acute) Arrhythmia (Acute) Migraine (Acute) Memory loss (Acute) Hypotestosteronism (Acute) Essential tremor (Acute) Parkinsons (Acute) Dementia (Acute) HEBER (obstructive sleep apnea) (Acute) Benign essential hypertension (Acute) Hammertoes of both feet (Acute) S/P CABG x 2 (Acute) 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 There is concern for rapid onset moderate level infection; the erythema location was marked with a pen. I recommended admission/observation for IV antibiotics and further work up. Xray and MRI final reports are pending. I reviewed the imaging and do not appreciate acute osseous destruction, osteomyelitis or abscess. Wound culture was obtained after excisional subcutaneous debridement (15 blade in clinic to excise non viable, fibrous, devitalized subcutaneous, biofilm tissue predebridement 0.2 x 0.2 x 0.2 cm and post debridement 0.9 x 0.5 x0.2 cm) . He tolerated the debridement well. The culture results are pending. WBC is elevated at 12.9, esr 31; will monitor. Pending imaging results and response to IV broad spectrum antibiotics, further antibiotics versus procedure intervention will be considered. He was advised to keep pressure off of this site. Dr. Kruger will re evaluate this patient tomorrow to check on progress. Please do not hesitate to call if there are any additional questions or concerns. Gloria Chatman DPM, [facility] [phone]
--- NOTE | 2018-03-19 19:37 | RAD_ITS ---
STUDY: X-RAY - LEFT FOOT CLINICAL: Male, 72 years old. Left first digit infection, redness and swelling TECHNIQUE: 3 view(s) of the foot. COMPARISON: None. FINDINGS: Normal talus, calcaneus, and tarsal bones. Normal visualized subtalar, talonavicular, calcaneocuboid, tarsal and tarsometatarsal articulations. Normal metatarsi. There is degenerative arthrosis of the metatarsophalangeal joint of the hallux with a hallux valgus deformity. Normal tibial and fibular sesamoid bones. There is degenerative arthrosis of the interphalangeal joint of the great toe. Normal phalanges of the great toe. Normal second through fifth metatarsophalangeal joints. Normal interphalangeal joints and phalanges of the lesser toes. Soft tissue prominence along the tibial first into phalangeal joint level.. RAD/Foot min 3 Views IMPRESSION: Hallux valgus deformity with degenerative changes of the first interphalangeal joint with adjacent soft tissue swelling. No radiographic evidence of osteomyelitis or osseous destruction. Electronically Signed: Brynn Tian MD at 2:31 EDT , Service support ,
[2018-03-19 19:43] VITALS: BP 157/57; PULSE 95; RESP 18; TEMP 36.6; O2SAT 96
--- NOTE | 2018-03-19 19:44 | PCM.RX.CS ---
Consult Pharmacy has been consulted to manage selected antiobiotic: Vancomycin Type of Consult: New start Suspected Infection: Skin/Soft tissue Prior Doses of Antibiotics Received/Current Regimen: 1750MG IV X 1 GIVEN 10..18 @1700 Labs: Sodium 143 mmol/L (136-145) 03/19/18 16:38 Potassium 3.5 mmol/L (3.5-5.1) 03/19/18 16:38 Chloride 106 mmol/L (98-107) 03/19/18 16:38 Carbon Dioxide 32.0 mmol/L (21.0-32.0) 03/19/18 16:38 Anion Gap 5 (5-15) 03/19/18 16:38 BUN 12 mg/dL (7-18) 03/19/18 16:38 Creatinine 1.00 mg/dL (0.70-1.30) 03/19/18 16:38 Est GFR (MDRD) Af Amer 94 mL/min (>60) 03/19/18 16:38 Est GFR (MDRD) Non-Af 78 mL/min (>60) 03/19/18 16:38 BUN/Creatinine Ratio 12.0 RATIO (10-20) 03/19/18 16:38 Glucose 121 mg/dL (74-106) H 03/19/18 16:38 Weight used for dosin.2 kg Estimated Creatinine Clearance: 69 ML/MIN Goal Trough: 15-20 mcg/mL Pharmacy Plan for Drug Dosing: Patient's weight (123.2kg), renal function (Cr 1.0, CrCl ~69) as well as indication reviewed. Further dosing will begin with 1500mg iv q12h and vancomycin trough has been ordered before 4th dose (goal 15-20mcg/ml). Pharmacy Service will continue to monitor and adjust dosing as required. Follow-Up Labs: Trough Vancomycin - 10.6.18 @0430 before 0500 dose
--- NOTE | 2018-03-19 19:49 | PHA.PHARE_ITS ---
Consult Pharmacy has been consulted to manage selected antiobiotic: Vancomycin Type of Consult: New start Suspected Infection: Skin/Soft tissue Prior Doses of Antibiotics Received/Current Regimen: 1750MG IV X 1 GIVEN 10..18 @1700 Labs: Sodium 143 mmol/L (136-145) 03/19/18 16:38 Potassium 3.5 mmol/L (3.5-5.1) 03/19/18 16:38 Chloride 106 mmol/L (98-107) 03/19/18 16:38 Carbon Dioxide 32.0 mmol/L (21.0-32.0) 03/19/18 16:38 Anion Gap 5 (5-15) 03/19/18 16:38 BUN 12 mg/dL (7-18) 03/19/18 16:38 Creatinine 1.00 mg/dL (0.70-1.30) 03/19/18 16:38 Est GFR (MDRD) Af Amer 94 mL/min (>60) 03/19/18 16:38 Est GFR (MDRD) Non-Af 78 mL/min (>60) 03/19/18 16:38 BUN/Creatinine Ratio 12.0 RATIO (10-20) 03/19/18 16:38 Glucose 121 mg/dL (74-106) H 03/19/18 16:38 Weight used for dosin.2 kg Estimated Creatinine Clearance: 69 ML/MIN Goal Trough: 15-20 mcg/mL Pharmacy Plan for Drug Dosing: Patient's weight (123.2kg), renal function (Cr 1.0, CrCl ~69) as well as indication reviewed. Further dosing will begin with 1500mg iv q12h and v ancomycin trough has been ordered before 4th dose (goal 15-20mcg/ml). Pharmacy Service will continue to monitor and adjust dosing as required. Follow-Up Labs: Trough Vancomycin - 10.6.18 @0430 before 0500 dose
[2018-03-19 20:15] LABS: M R Staph aureus DNA By PCR POSITIVE (Negative); Probe Check PASS; Staph aureus DNA By PCR POSITIVE (Negative)
[2018-03-19 22:06] VITALS: PULSE 92
[2018-03-19] MEDS: Metoprolol Tartrate 25 MG Tablet PO (22:06)
[2018-03-19] MEDS: Gabapentin 600 MG Tablet 1200 MG PO (22:07)
[2018-03-19] MEDS: Pramipexole Di-HCl 0.5 MG Tablet PO (22:07)
[2018-03-19] MEDS: Docusate Sodium 100 MG Capsule PO (22:08)
[2018-03-19] MEDS: Pravastatin 40 MG Tablet PO (22:08)
[2018-03-19 22:17] LABS: Bedside Glucose 122 mg/dL (70-110)
[2018-03-20] VITALS (8 sets, daily range): BP systolic 135–159; BP diastolic 67–80; PULSE 79–91; RESP 16–20; TEMP 36.4–36.8; O2SAT 94–99
[2018-03-20] MEDS: oxyCODONE 5 MG Tablet PO ×2 (00:56→23:55)
[2018-03-20 02:41] LABS: Bedside Glucose 118 mg/dL (70-110)
[2018-03-20] MEDS: Pramipexole Di-HCl 0.5 MG Tablet PO ×3 (05:57→21:42)
[2018-03-20] MEDS: 0.9% NaCl VAD Flush 10 ML IV (05:57)
[2018-03-20 06:20] LABS: Anion Gap 5 (5-15); BUN 11 mg/dL (7-18); BUN/Creat Ratio 11.1 RATIO (10-20); Calcium,Total 8.1 mg/dL (8.5-10.1); Chloride 107 mmol/L (98-107); Creatinine, Serum 0.99 mg/dL (0.70-1.30); EST Glomerular Filtration Rate 79 mL/min (>60); Est Glom Filt Rate - Afr Amer 96 mL/min (>60); Estimated Creatinine Clearance 69.64 ml/min; Glucose 125 mg/dL (74-106); Potassium 3.7 mmol/L (3.5-5.1); Sodium Level 143 mmol/L (136-145)
[2018-03-20 06:45] LABS: Bedside Glucose 124 mg/dL (70-110)
[2018-03-20] MEDS: Ipratropium/Albuterol Sulfate 3 ML AMPUL.NEB INHALATION ×3 (07:12→19:13)
[2018-03-20] MEDS: Budesonide Respules 0.5 MG/2 ML AMPUL.NEB. 0.25 MG INHALATION ×2 (07:12→19:14)
[2018-03-20] MEDS: Furosemide 20 MG Tablet PO (09:26)
[2018-03-20] MEDS: Cyanocobalamin 500 MCG Tablet 1000 MCG PO (09:26)
[2018-03-20] MEDS: Digoxin 250 MCG Tablet PO (09:27)
[2018-03-20] MEDS: Rivaroxaban 10 MG Tablet PO (09:27)
[2018-03-20] MEDS: Fenofibrate 145 MG Tablet PO (09:27)
[2018-03-20] MEDS: Losartan Potassium 25 MG Tablet PO (09:27)
[2018-03-20] MEDS: Folic Acid 1 MG Tablet PO (09:27)
[2018-03-20] MEDS: Docusate Sodium 100 MG Capsule PO ×2 (09:27→21:41)
[2018-03-20] MEDS: Multivitamins,Ther W-Minerals Tablet 1 TABLET PO ×2 (09:27→16:57)
[2018-03-20] MEDS: Aspirin E.C. 81 MG Tablet PO (09:27)
[2018-03-20] MEDS: Glucerna Shake 120 ML LIQUID PO ×4 (10:39→21:41)
[2018-03-20 11:41] LABS: Bedside Glucose 141 mg/dL (70-110)
--- NOTE | 2018-03-20 12:14 | PN_ITS ---
Patient Problems: Active and Suspected Problems (Last Reviewed 03/19/18 @ 15:11 by Titi Moore DO) Non-pressure chronic ulcer of other part of left foot with fat layer exposed (Acute) Subjective: This 72 year old male was seen early this afternoon for ulcer of the left great toe which he was admitted for yesterday as well as cellulitis in lower extremity. He has been treated at several facilities in the past. [facility] by Dr. Chatman with worsening redness, swelling and warmth and generalized fatigue. Currently the patient is resting bedside comfortably. He says he feels well and has an appetite. He currently denies any feelings of nausea, vomiting, fever, or chills. - Physical Exam General: Alert, Oriented x3, Cooperative, No apparent distress Extremities: Capillary Refill Less than 3 Seconds - to distal digits of the right and left foot., No Calf Tenderness - negative gisela and weinstein sign, Diminished Peripheral Pulses - DP pulses palpable bilateral and PT pulse to the left palpable and to the right non palpable., Edema - edema noted more to left lower extremity than right Skin: Ulcer/ Wound - To plantar medial hallux. No purulence or necrosis appreciated. There is no probing to bone, tracking, or undermining noted. Overyling callus debrided by Dr. Chatman yesterday. Erythema appreciated to left hallux. This is improved since yesterday according to the patient. The cellulitis to patients leg/thigh has receeded since yesterday. Slight increase in warmth still noted to left side compared to right., - - small superficial abrasion also noted to right dorsolateral foot/ankle. No signs or symptoms of local infection appreciated. No purulence or probing. Musculoskeletal: - - Very minor tenderness with manipulation of ulcer site to left hallux. Hallux malleus noted bilateral. Neurological: - - Epicritic sensation grossly absent to lower extremity bilateral Psych/Mental Status: Normal Affect, Appropriate Vital Signs Temp Pulse Resp BP Pulse Ox 98.2 F 91 18 135/72 H 97 03/20/18 09:14 03/20/18 09:14 03/20/18 09:14 03/20/18 09:14 03/20/18 09:14 Oxygen Flow Rate (L/min) 2 Oxygen Delivery Method Room Air Weight: 123.196 kg Body Mass Index (BMI) 38.9 Intake and Output for Last 24 Hours 03/18/18 03/19/18 03/20/18 23:59 23:59 23:59 Intake Total 150 / 150 2803.9 / 2803.9 Output Total 550 / 550 Balance 150 / 150 2253.9 / 2253.9 Microbiology Past 72 Hours 03/19/18 12:00 Gram Stain - Final Ulcer, Decubitus - Left Foot Wound Culture - Preliminary Staphylococcus aureus 03/19/18 16:20 Gram Stain - Final Wound - Toe Wound Culture - Preliminary Beta hemolytic organism Laboratory Tests Past 24 Hrs 03/19/18 03/19/18 03/19/18 12:00 16:38 16:38 WBC 12.9 H RBC 4.15 L Hgb 10.9 L Hct 35.5 L MCV 85.5 MCH 26.3 L MCHC 30.7 L RDW 18.7 H RDW Differential 57.6 H Plt Count 248 MPV 9.9 Immature Gran % (Auto) 0.200 Neut % (Auto) 79.4 H Lymph % (Auto) 9.6 L [place] % (Auto) 9.4 Eos % (Auto) 1.2 Baso % (Auto) 0.2 Absolute Neuts (auto) 10.2 H Absolute Lymphs (auto) 1.24 Total Counted Not Reportable ESR 31 H Sodium 143 Potassium 3.5 Chloride 106 Carbon Dioxide 32.0 Anion Gap 5 BUN 12 Creatinine 1.00 Estim Creat Clear Calc 68.94 Est GFR (MDRD) Af Amer 94 Est GFR (MDRD) Non-Af 78 BUN/Creatinine Ratio 12.0 Glucose 121 H Calcium 8.2 L S.aureus Protein A PCR POSITIVE H MRSA (PCR) POSITIVE H 03/20/18 05:50 WBC RBC Hgb Hct MCV MCH MCHC RDW RDW Differential Plt Count MPV Immature Gran % (Auto) Neut % (Auto) Lymph % (Auto) [place] % (Auto) Eos % (Auto) Baso % (Auto) Absolute Neuts (auto) Absolute Lymphs (auto) Total Counted ESR Sodium 143 Potassium 3.7 Chloride 107 Carbon Dioxide 31.0 Anion Gap 5 BUN 11 Creatinine 0.99 Estim Creat Clear Calc 69.64 Est GFR (MDRD) Af Amer 96 Est GFR (MDRD) Non-Af 79 BUN/Creatinine Ratio 11.1 Glucose 125 H Calcium 8.1 L S.aureus Protein A PCR MRSA (PCR) POC Glucose 03/20/18 03/20/18 03/20/18 11:35 06:40 02:12 POC Glucose 141 H 124 H 118 H 03/19/18 03/19/18 22:05 16:18 POC Glucose 122 H 118 H Medical Necessity - Tobacco Use Smoking Status: Former smoker Assessment/Plan All Active Problems (Last Reviewed 03/19/18 @ 15:11 by Titi Moore DO) Non-pressure chronic ulcer of other part of left foot with fat layer exposed (Acute) Educational circumstance (Acute) GI bleed (Acute) Left VATS procedure with wedge resection KATIE (Acute) port placement (Acute) Educational circumstance (Acute) Antineoplastic chemotherapy induced anemia (Acute) Constipation (Acute) Chemotherapy induced neutropenia (Acute) Anemia (Acute) COPD (chronic obstructive pulmonary disease) (Acute) Dyspnea (Acute) Diabetes (Acute) Neuropathy (Acute) Arthritis (Acute) Obesity (Acute) Alcohol dependence (Acute) GERD (gastroesophageal reflux disease) (Acute) DJD (degenerative joint disease) (Acute) Vascular disease (Acute) Renal disease (Acute) Macular degeneration (Acute) Arrhythmia (Acute) Migraine (Acute) Memory loss (Acute) Hypotestosteronism (Acute) Essential tremor (Acute) Parkinsons (Acute) Dementia (Acute) HEBER (obstructive sleep apnea) (Acute) Benign essential hypertension (Acute) Hammertoes of both feet (Acute) S/P CABG x 2 (Acute) left hallux with chronic ulcer lymphangitis (resolving) diabetes with neuropathy other comorbidities Patient was carefully examined and evaluated in great detail today while resting bedside. He is currently afebrile and vital signs are stable. His wbc yesterday was 12.9. Preliminary culture results show staph aureus and beta hemolytic organism. MRSA pcr was positive for this patient. Patient on IV antibiotics and showing significant improvement of cellulitis. MRI of the left foot was taken and was read as soft tissue swelling of the hallux with no evidence of soft tissue emphysema, no evidence of osteomyelitis, and no evidence of abscess. 3 view x ray was also taken and showed no evidence of osseous destruction that would be consistent with osteomyelitis and it showed some soft tissue swelling of the hallux. Some erythema still appreciated to left hallux today, but patient says this is improved from yesterday. There continues to be no purulence or probing to bone in the area today. The ulcer site was carefully dressed with aquacel ag to the base, followed by 2x2, and aman. Abrasion to right dorsolateral foot/ankle was dressed with aquacel ag, 2x2 gauze, and tape. These areas can be reinforced by nursing if necessary. Further medical management is appreciated by primary team. Podiatry will continue to monitor this patient while in house.
--- NOTE | 2018-03-20 13:47 | CASEMGMT ---
RN CM Assessment. PCP: Dr. Hobson Pharmacy: [facility] DME: shower chair, raised toilet seat, cane, hand held shower, walker, WC, oxygen, cpap and nebulizer. Living arrangements: with . Transportation: DC Plan: home with family support.
--- NOTE | 2018-03-20 14:42 | PCM.PN.HOSP ---
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 Patient has history of bilateral lower extremity atherosclerotic disease and had stents in both legs. Patient has seen Dr. Cheung. This time admitted with left great toe chronic ulcer and had debridement done by Dr. Sommer in the office and then admitted for IV antibiotics. MRSA positiveleft great toe ulcer. No fever, chills. Vitals/I&O's: Vital Signs Temp Pulse Resp BP Pulse Ox 97.6 F L 87 16 154/80 H 97 03/20/18 14:03 03/20/18 14:03 03/20/18 14:03 03/20/18 14:03 03/20/18 14:03 Oxygen Flow Rate (L/min) 2 Oxygen Delivery Method Room Air Weight: 271 lb 9.611 oz Body Mass Index (BMI) 38.9 Intake and Output for Last 24 Hours 03/18/18 03/19/18 03/20/18 23:59 23:59 23:59 Intake Total 150 / 150 2949.9 / 2949.9 Output Total 1250 / 1250 Balance 150 / 150 1699.9 / 1699.9 General: Alert, Oriented x3, Cooperative HEENT: Atraumatic, PERRLA, EOMI, Normocephalic Neck: Supple, No JVD, Negative Carotid Bruits Lungs: Clear to auscultation, No rhonchi, No wheeze, No rales, Diminished Cardiovascular: Regular rate, Regular Rhythm, Normal S1, Normal S2, No murmurs, - - Decreased peripheral PT and dorsalis pedis arteries pulsation bilaterally. Abdomen: Bowel Sounds Present, Soft, Non Tender, Non-Distended Extremities: Capillary Refill Less than 3 Seconds, Edema Skin: Ulcer/ Wound - Small ulcer over medial left great toe. Dry. No discharge. Small superficial skin erosion on the right lower leg. Musculoskeletal: No Tenderness to Palpation of Joints or Extremities, Arthritic Changes Neurological: Cranial nerves II-XII grossly intact, - - Diminished sensation over both feet. Patient has diabetic neuropathy. Psych/Mental Status: Normal Affect, Appropriate Microbiology Past 72 Hours 03/19/18 12:00 Ulcer, Decubitus - Left Foot Gram Stain - Final 03/19/18 12:00 Ulcer, Decubitus - Left Foot Wound Culture - Preliminary Staphylococcus aureus 03/19/18 16:20 Wound - Toe Gram Stain - Final 03/19/18 16:20 Wound - Toe Wound Culture - Preliminary Beta hemolytic organism Laboratory Results 03/19/18 12:00: S.aureus Protein A PCR POSITIVE H, MRSA (PCR) POSITIVE H 03/19/18 16:18: POC Glucose 118 H 03/19/18 16:38: WBC 12.9 H, RBC 4.15 L, Hgb 10.9 L, Hct 35.5 L, MCV 85.5, MCH 26.3 L, MCHC 30.7 L, RDW 18.7 H, RDW Differential 57.6 H, Plt Count 248, MPV 9.9, Immature Gran % (Auto) 0.200, Neut % (Auto) 79.4 H, Lymph % (Auto) 9.6 L, [place] % (Auto) 9.4, Eos % (Auto) 1.2, Baso % (Auto) 0.2, Absolute Neuts (auto) 10.2 H, Absolute Lymphs (auto) 1.24, Total Counted Not Reportable, ESR 31 H 03/19/18 16:38: Sodium 143, Potassium 3.5, Chloride 106, Carbon Dioxide 32.0, Anion Gap 5, BUN 12, Creatinine 1.00, Estim Creat Clear Calc 68.94, Est GFR (MDRD) Af Amer 94, Est GFR (MDRD) Non-Af 78, BUN/Creatinine Ratio 12.0, Glucose 121 H, Calcium 8.2 L 03/19/18 22:05: POC Glucose 122 H 03/20/18 02:12: POC Glucose 118 H 03/20/18 05:50: Sodium 143, Potassium 3.7, Chloride 107, Carbon Dioxide 31.0, Anion Gap 5, BUN 11, Creatinine 0.99, Estim Creat Clear Calc 69.64, Est GFR (MDRD) Af Amer 96, Est GFR (MDRD) Non-Af 79, BUN/Creatinine Ratio 11.1, Glucose 125 H, Calcium 8.1 L 03/20/18 06:40: POC Glucose 124 H 03/20/18 11:35: POC Glucose 141 H Current Medications Acetaminophen (Tylenol) 650 mg PO Q6H PRN PRN PRN Reason: Mild Pain (1-3)/Temp > 100.7 F Albuterol/Ipratropium (Duoneb) 3 ml INHALATION Q6HWA.RT [facility] Last Admin: 03/20/18 13:33 Dose: 3 ml Aspirin (Ecotrin) 81 mg PO DAILYCM [facility] Last Admin: 03/20/18 09:27 Dose: 81 mg Budesonide (Pulmicort Aerosol) 0.25 mg INHALATION BID.RT [facility] Last Admin: 03/20/18 07:12 Dose: 0.25 mg Cyanocobalamin (Vitamin B12) 1,000 mcg PO DAILY@1200 [facility] Last Admin: 03/20/18 09:26 Dose: 1,000 mcg Dextrose (D50w Syringe) 0 gm IV X1 PRN; Protocol PRN Reason: Hypoglycemia Digoxin (Lanoxin) 250 mcg PO DAILY [facility] Last Admin: 03/20/18 09:27 Dose: 250 mcg Docusate Sodium (Colace) 100 mg PO BID@1200,2200 [facility] Last Admin: 03/20/18 09:27 Dose: 100 mg Duloxetine HCl (Cymbalta) 60 mg PO 1600 [facility] Last Admin: 03/19/18 17:09 Dose: 60 mg Fenofibrate (Tricor) 145 mg PO LUNCH [facility] Last Admin: 03/20/18 09:27 Dose: 145 mg Folic Acid (Folic Acid) 1 mg PO DAILY@1200 [facility] Last Admin: 03/20/18 09:27 Dose: 1 mg Furosemide (Lasix) 20 mg PO QODAY [facility] Last Admin: 03/20/18 09:26 Dose: 20 mg Furosemide (Lasix) 40 mg PO QODAY [facility] Gabapentin (Neurontin) 1,200 mg PO QHS [facility] Last Admin: 03/19/18 22:07 Dose: 1,200 mg Glucagon () 1 mg IM .X1 PRN PRN Reason: Hypoglycemia Heparin Sodium (Beef Lung) (Heparin 500 Unit/5 Ml (100/Ml)) 500 unit IV UD PRN PRN Reason: HEPARIN FLUSH Vancomycin IV Pharmacy to Dose (1 ea/ Sodium Chloride) 500 mls @ 250 mls/hr IV PRN PRN; Protocol PRN Reason: Rx to Dose Vancomycin HCl 1,500 mg/ (Sodium Chloride) 530 mls @ 250 mls/hr IV Q12H [facility] Last Admin: 03/20/18 05:57 Dose: 250 mls/hr Insulin Human Lispro (Humalog Kwikpen (Bkc)) 0 unit SQ TIDAC [facility]; Protocol Last Admin: 03/20/18 11:37 Dose: Not Given Losartan Potassium (Cozaar) 25 mg PO DAILY [facility] Last Admin: 03/20/18 09:27 Dose: 25 mg Magnesium Hydroxide (Milk Of Magnesia) 30 ml PO DAILY PRN PRN PRN Reason: Constipation Metoprolol Tartrate (Lopressor (Beta Taisha)) 25 mg PO QHS [facility] Last Admin: 03/19/18 22:06 Dose: 25 mg Multivitamins/Minerals (Multivitamin With Minerals) 1 tablet PO BIDCM [facility] Last Admin: 03/20/18 09:27 Dose: 1 tablet Nutritional Formula (Lactose Free) (Glucerna Shake) 120 ml PO 4X/DAY [facility] Last Admin: 03/20/18 13:21 Dose: 120 ml Ondansetron HCl (Zofran) 4 mg IV Q8H PRN PRN PRN Reason: NAUSEA Oxycodone HCl (Oxyir) 5 - 10 mg PO Q4H PRN PRN PRN Reason: MOD-SEVERE PAIN (4-10/10) Last Admin: 03/20/18 00:56 Dose: 10 mg Pantoprazole Sodium (Protonix) 20 mg PO DAILY@1700 [facility] Last Admin: 03/19/18 17:08 Dose: 20 mg Potassium Chloride (K-Dur) 20 meq PO DAILY [facility] Last Admin: 03/20/18 09:27 Dose: 20 meq Pramipexole Dihydrochloride (Mirapex) 0.5 mg PO TID [facility] Last Admin: 03/20/18 13:21 Dose: 0.5 mg Pravastatin Sodium (Pravachol) 40 mg PO QHS [facility] Last Admin: 03/19/18 22:08 Dose: 40 mg Rivaroxaban (Xarelto) 10 mg PO DAILY [facility] Last Admin: 03/20/18 09:27 Dose: 10 mg Senna (Senokot) 1 tablet PO DINNER [facility] Last Admin: 03/19/18 17:09 Dose: 1 tablet Sodium Chloride () 10 ml IV UD PRN PRN Reason: VAD FLUSH Last Admin: 03/20/18 05:57 Dose: 10 ml Medical Necessity - Tobacco Use Smoking Status: Former smoker Assessment/Plan All Active Problems (Last Reviewed 03/19/18 @ 15:11 by Titi Moore DO) Non-pressure chronic ulcer of other part of left foot with fat layer exposed (Acute) Educational circumstance (Acute) GI bleed (Acute) Left VATS procedure with wedge resection KATIE (Acute) port placement (Acute) Educational circumstance (Acute) Antineoplastic chemotherapy induced anemia (Acute) Constipation (Acute) Chemotherapy induced neutropenia (Acute) Anemia (Acute) COPD (chronic obstructive pulmonary disease) (Acute) Dyspnea (Acute) Diabetes (Acute) Neuropathy (Acute) Arthritis (Acute) Obesity (Acute) Alcohol dependence (Acute) GERD (gastroesophageal reflux disease) (Acute) DJD (degenerative joint disease) (Acute) Vascular disease (Acute) Renal disease (Acute) Macular degeneration (Acute) Arrhythmia (Acute) Migraine (Acute) Memory loss (Acute) Hypotestosteronism (Acute) Essential tremor (Acute) Parkinsons (Acute) Dementia (Acute) HEBER (obstructive sleep apnea) (Acute) Benign essential hypertension (Acute) Hammertoes of both feet (Acute) S/P CABG x 2 (Acute) This 72-year-old gentleman with history of diabetes mellitus type 2, coronary artery disease status post CABG and stents, peripheral arterial disease in both lower legs status post stents in each leg, left upper lobe malignant neoplasm was admitted with chronic ulcer on left great toe for several months and was sent here from doctor's office after wound debridement. MRI of left foot was done and shows no osseous involvement/osteomyelitis. No fever or chills. 1. Acute left lower extremity cellulitis with left great toe chronic nonhealing ulcer: Patient is being admitted on regular MedSurg floor. Osteomyelitis is ruled out. Wound culture of left foot toes shows MRSA and growing beta-hemolytic streptococci. On IV vancomycin. Patient was seen by Dr. Chatman and Dr. Kruger. Extent of left lower lobe cellulitis marked by pain has improved and is much decreased. Erythema is much faint. 2. Diabetes mellitus type 2, complicated with diabetic neuropathy and probably has retinopathy. 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 On Humalog sliding scale insulin. Blood sugar is controlled. A1c tomorrow a.m. 3. Multiple cardiac disease: Coronary artery status post CABG, stents, mild carotid stenosis, chronic atrial fibrillation. Peripheral atherosclerotic disease of bilateral lower extremity status post stents. Arterial Doppler of lower extremities ordered. Patient hadstress echo in November 2017 which was negative for ischemia. EF 60% with VPCs, couplets and triplets. Carotid Dopplerv in November 2017 shows less than 50% stenosis in both extracranial internal carotid arteries. A. fib rate controlled Continue with metoprolol and digoxin Continue with Xarelto 4. Advanced care planning: Discussed CPR, intubation and PEG tube's. Patient wishes to be full code with intubation and PEG tube's at this time if needed. 5. DVT prophylaxis: Patient is anticoagulated. Microbiology Past 72 Hours 03/19/18 12:00 Ulcer, Decubitus - Left Foot Gram Stain - Final 03/19/18 12:00 Ulcer, Decubitus - Left Foot Wound Culture - Preliminary Staphylococcus aureus 03/19/18 16:20 Wound - Toe Gram Stain - Final 03/19/18 16:20 Wound - Toe Wound Culture - Preliminary Beta hemolytic organism Laboratory Results 03/19/18 12:00: S.aureus Protein A PCR POSITIVE H, MRSA (PCR) POSITIVE H 03/19/18 16:18: POC Glucose 118 H 03/19/18 16:38: WBC 12.9 H, RBC 4.15 L, Hgb 10.9 L, Hct 35.5 L, MCV 85.5, MCH 26.3 L, MCHC 30.7 L, RDW 18.7 H, RDW Differential 57.6 H, Plt Count 248, MPV 9.9, Immature Gran % (Auto) 0.200, Neut % (Auto) 79.4 H, Lymph % (Auto) 9.6 L, [place] % (Auto) 9.4, Eos % (Auto) 1.2, Baso % (Auto) 0.2, Absolute Neuts (auto) 10.2 H, Absolute Lymphs (auto) 1.24, Total Counted Not Reportable, ESR 31 H 03/19/18 16:38: Sodium 143, Potassium 3.5, Chloride 106, Carbon Dioxide 32.0, Anion Gap 5, BUN 12, Creatinine 1.00, Estim Creat Clear Calc 68.94, Est GFR (MDRD) Af Amer 94, Est GFR (MDRD) Non-Af 78, BUN/Creatinine Ratio 12.0, Glucose 121 H, Calcium 8.2 L 03/19/18 22:05: POC Glucose 122 H 03/20/18 02:12: POC Glucose 118 H 03/20/18 05:50: Sodium 143, Potassium 3.7, Chloride 107, Carbon Dioxide 31.0, Anion Gap 5, BUN 11, Creatinine 0.99, Estim Creat Clear Calc 69.64, Est GFR (MDRD) Af Amer 96, Est GFR (MDRD) Non-Af 79, BUN/Creatinine Ratio 11.1, Glucose 125 H, Calcium 8.1 L 03/20/18 06:40: POC Glucose 124 H 03/20/18 11:35: POC Glucose 141 H Code Visit Inpatient E&M: 05809 Subs Hosp L3
--- NOTE | 2018-03-20 14:46 | PN_ITS ---
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 Patient has history of bilateral lower extremity atherosclerotic disease and had stents in both legs. Patient has seen Dr. Cheung. This time admitted with left great toe chronic ulcer and had debridement done by Dr. Sommer in the office and then admitted for IV antibiotics. MRSA positiveleft great toe ulcer. No fever, chills. Vitals/I&O's: Vital Signs Temp Pulse Resp BP Pulse Ox 97.6 F L 87 16 154/80 H 97 03/20/18 14:03 03/20/18 14:03 03/20/18 14:03 03/20/18 14:03 03/20/18 14:03 Oxygen Flow Rate (L/min) 2 Oxygen Delivery Method Room Air Weight: 271 lb 9.611 oz Body Mass Index (BMI) 38.9 Intake and Output for Last 24 Hours 03/18/18 03/19/18 03/20/18 23:59 23:59 23:59 Intake Total 150 / 150 2949.9 / 2949.9 Output Total 1250 / 1250 Balance 150 / 150 1699.9 / 1699.9 General: Alert, Oriented x3, Cooperative HEENT: Atraumatic, PERRLA, EOMI, Normocephalic Neck: Supple, No JVD, Negative Carotid Bruits Lungs: Clear to auscultation, No rhonchi, No wheeze, No rales, Diminished Cardiovascular: Regular rate, Regular Rhythm, Normal S1, Normal S2, No murmurs, - - Decreased peripheral PT and dorsalis pedis arteries pulsation bilaterally. Abdomen: Bowel Sounds Present, Soft, Non Tender, Non-Distended Extremities: Capillary Refill Less than 3 Seconds, Edema Skin: Ulcer/ Wound - Small ulcer over medial left great toe. Dry. No discharge. Small superficial skin erosion on the right lower leg. Musculoskeletal: No Tenderness to Palpation of Joints or Extremities, Arthritic Changes Neurological: Cranial nerves II-XII grossly intact, - - Diminished sensation over both feet. Patient has diabetic neuropathy. Psych/Mental Status: Normal Affect, Appropriate Microbiology Past 72 Hours 03/19/18 12:00 Ulcer, Decubitus - Left Foot Gram Stain - Final 03/19/18 12:00 Ulcer, Decubitus - Left Foot Wound Culture - Preliminary Staphylococcus aureus 03/19/18 16:20 Wound - Toe Gram Stain - Final 03/19/18 16:20 Wound - Toe Wound Culture - Preliminary Beta hemolytic organism Laboratory Results 03/19/18 12:00: S.aureus Protein A PCR POSITIVE H, MRSA (PCR) POSITIVE H 03/19/18 16:18: POC Glucose 118 H 03/19/18 16:38: WBC 12.9 H, RBC 4.15 L, Hgb 10.9 L, Hct 35.5 L, MCV 85.5, MCH 26.3 L, MCHC 30.7 L, RDW 18.7 H, RDW Differential 57.6 H, Plt Count 248, MPV 9.9, Immature Gran % (Auto) 0.200, Neut % (Auto) 79.4 H, Lymph % (Auto) 9.6 L, [place] % (Auto) 9.4, Eos % (Auto) 1.2, Baso % (Auto) 0.2, Absolute Neuts (auto) 10.2 H, Absolute Lymphs (auto) 1.24, Total Counted Not Reportable, ESR 31 H 03/19/18 16:38: Sodium 143, Potassium 3.5, Chloride 106, Carbon Dioxide 32.0, Anion Gap 5, BUN 12, Creatinine 1.00, Estim Creat Clear Calc 68.94, Est GFR (MDRD) Af Amer 94, Est GFR (MDRD) Non-Af 78, BUN/Creatinine Ratio 12.0, Glucose 121 H, Calcium 8.2 L 03/19/18 22:05: POC Glucose 122 H 03/20/18 02:12: POC Glucose 118 H 03/20/18 05:50: Sodium 143, Potassium 3.7, Chloride 107, Carbon Dioxide 31.0, Anion Gap 5, BUN 11, Creatinine 0.99, Estim Creat Clear Calc 69.64, Est GFR (MDRD) Af Amer 96, Est GFR (MDRD) Non-Af 79, BUN/Creatinine Ratio 11.1, Glucose 125 H, Calcium 8.1 L 03/20/18 06:40: POC Glucose 124 H 03/20/18 11:35: POC Glucose 141 H Current Medications Acetaminophen (Tylenol) 650 mg PO Q6H PRN PRN PRN Reason: Mild Pain (1-3)/Temp > 100.7 F Albuterol/Ipratropium (Duoneb) 3 ml INHALATION Q6HWA.RT [facility] Last Admin: 03/20/18 13:33 Dose: 3 ml Aspirin (Ecotrin) 81 mg PO DAILYCM [facility] Last Admin: 03/20/18 09:27 Dose: 81 mg Budesonide (Pulmicort Aerosol) 0.25 mg INHALATION BID.RT [facility] Last Admin: 03/20/18 07:12 Dose: 0.25 mg Cyanocobalamin (Vitamin B12) 1,000 mcg PO DAILY@1200 [facility] Last Admin: 03/20/18 09:26 Dose: 1,000 mcg Dextrose (D50w Syringe) 0 gm IV X1 PRN; Protocol PRN Reason: Hypoglycemia Digoxin (Lanoxin) 250 mcg PO DAILY [facility] Last Admin: 03/20/18 09:27 Dose: 250 mcg Docusate Sodium (Colace) 100 mg PO BID@1200,2200 [facility] Last Admin: 03/20/18 09:27 Dose: 100 mg Duloxetine HCl (Cymbalta) 60 mg PO 1600 [facility] Last Admin: 03/19/18 17:09 Dose: 60 mg Fenofibrate (Tricor) 145 mg PO LUNCH [facility] Last Admin: 03/20/18 09:27 Dose: 145 mg Folic Acid (Folic Acid) 1 mg PO DAILY@1200 [facility] Last Admin: 03/20/18 09:27 Dose: 1 mg Furosemide (Lasix) 20 mg PO QODAY [facility] Last Admin: 03/20/18 09:26 Dose: 20 mg Furosemide (Lasix) 40 mg PO QODAY [facility] Gabapentin (Neurontin) 1,200 mg PO QHS [facility] Last Admin: 03/19/18 22:07 Dose: 1,200 mg Glucagon () 1 mg IM .X1 PRN PRN Reason: Hypoglycemia Heparin Sodium (Beef Lung) (Heparin 500 Unit/5 Ml (100/Ml)) 500 unit IV UD PRN PRN Reason: HEPARIN FLUSH Vancomycin IV Pharmacy to Dose (1 ea/ Sodium Chloride) 500 mls @ 250 mls/hr IV PRN PRN; Protocol PRN Reason: Rx to Dose Vancomycin HCl 1,500 mg/ (Sodium Chloride) 530 mls @ 250 mls/hr IV Q12H [facility] Last Admin: 03/20/18 05:57 Dose: 250 mls/hr Insulin Human Lispro (Humalog Kwikpen (Bkc)) 0 unit SQ TIDAC [facility]; Protocol Last Admin: 03/20/18 11:37 Dose: Not Given Losartan Potassium (Cozaar) 25 mg PO DAILY [facility] Last Admin: 03/20/18 09:27 Dose: 25 mg Magnesium Hydroxide (Milk Of Magnesia) 30 ml PO DAILY PRN PRN PRN Reason: Constipation Metoprolol Tartrate (Lopressor (Beta Taisha)) 25 mg PO QHS [facility] Last Admin: 03/19/18 22:06 Dose: 25 mg Multivitamins/Minerals (Multivitamin With Minerals) 1 tablet PO BIDCM [facility] Last Admin: 03/20/18 09:27 Dose: 1 tablet Nutritional Formula (Lactose Free) (Glucerna Shake) 120 ml PO 4X/DAY [facility] Last Admin: 03/20/18 13:21 Dose: 120 ml Ondansetron HCl (Zofran) 4 mg IV Q8H PRN PRN PRN Reason: NAUSEA Oxycodone HCl (Oxyir) 5 - 10 mg PO Q4H PRN PRN PRN Reason: MOD-SEVERE PAIN (4-10/10) Last Admin: 03/20/18 00:56 Dose: 10 mg Pantoprazole Sodium (Protonix) 20 mg PO DAILY@1700 [facility] Last Admin: 03/19/18 17:08 Dose: 20 mg Potassium Chloride (K-Dur) 20 meq PO DAILY [facility] Last Admin: 03/20/18 09:27 Dose: 20 meq Pramipexole Dihydrochloride (Mirapex) 0.5 mg PO TID [facility] Last Admin: 03/20/18 13:21 Dose: 0.5 mg Pravastatin Sodium (Pravachol) 40 mg PO QHS [facility] Last Admin: 03/19/18 22:08 Dose: 40 mg Rivaroxaban (Xarelto) 10 mg PO DAILY [facility] Last Admin: 03/20/18 09:27 Dose: 10 mg Senna (Senokot) 1 tablet PO DINNER [facility] Last Admin: 03/19/18 17:09 Dose: 1 tablet Sodium Chloride () 10 ml IV UD PRN PRN Reason: VAD FLUSH Last Admin: 03/20/18 05:57 Dose: 10 ml Medical Necessity - Tobacco Use Smoking Status: Former smoker Assessment/Plan All Active Problems (Last Reviewed 03/19/18 @ 15:11 by Titi Moore DO) Non-pressure chronic ulcer of other part of left foot with fat layer exposed (Acute) Educational circumstance (Acute) GI bleed (Acute) Left VATS procedure with wedge resection KATIE (Acute) port placement (Acute) Educational circumstance (Acute) Antineoplastic chemotherapy induced anemia (Acute) Constipation (Acute) Chemotherapy induced neutropenia (Acute) Anemia (Acute) COPD (chronic obstructive pulmonary disease) (Acute) Dyspnea (Acute) Diabetes (Acute) Neuropathy (Acute) Arthritis (Acute) Obesity (Acute) Alcohol dependence (Acute) GERD (gastroesophageal reflux disease) (Acute) DJD (degenerative joint disease) (Acute) Vascular disease (Acute) Renal disease (Acute) Macular degeneration (Acute) Arrhythmia (Acute) Migraine (Acute) Memory loss (Acute) Hypotestosteronism (Acute) Essential tremor (Acute) Parkinsons (Acute) Dementia (Acute) HEBER (obstructive sleep apnea) (Acute) Benign essential hypertension (Acute) Hammertoes of both feet (Acute) S/P CABG x 2 (Acute) This 72-year-old gentleman with history of diabetes mellitus type 2, coronary artery disease status post CABG and stents, peripheral arterial disease in both lower legs status post stents in each leg, left upper lobe malignant neoplasm was admitted with chronic ulcer on left great toe for several months and was sent here from doctor's office after wound debridement. MRI of left foot was done and shows no osseous involvement/osteomyelitis. No fever or chills. 1. Acute left lower extremity cellulitis with left great toe chronic nonhealing ulcer: Patient is being admitted on regular MedSurg floor. Osteomyelitis is ruled out. Wound culture of left foot toes shows MRSA and growing beta- hemolytic streptococci. On IV vancomycin. Patient was seen by Dr. Chatman and Dr. Kruger. Extent of left lower lobe cellulitis marked by pain has improved and is much decreased. Erythema is much faint. 2. Diabetes mellitus type 2, complicated with diabetic neuropathy and probably has retinopathy. 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 On Humalog sliding scale insulin. Blood sugar is controlled. A1c tomorrow a.m. 3. Multiple cardiac disease: Coronary artery status post CABG, stents, mild c arotid stenosis, chronic atrial fibrillation. Peripheral atherosclerotic disease of bilateral lower extremity status post stents. * Arterial Doppler of lower extremities ordered. * Patient hadstress echo in November 2017 which was negative for ischemia. EF 60% with VPCs, couplets and triplets. Carotid Dopplerv in November 2017 shows less than 50% stenosis in both extracranial internal carotid arteries. * A. fib rate controlled * Continue with metoprolol and digoxin * Continue with Xarelto 4. Advanced care planning: Discussed CPR, intubation and PEG tube's. Patient wishes to be full code with intubation and PEG tube's at this time if needed. 5. DVT prophylaxis: Patient is anticoagulated. Microbiology Past 72 Hours 03/19/18 12:00 Ulcer, Decubitus - Left Foot Gram Stain - Final 03/19/18 12:00 Ulcer, Decubitus - Left Foot Wound Culture - Preliminary Staphylococcus aureus 03/19/18 16:20 Wound - Toe Gram Stain - Final 03/19/18 16:20 Wound - Toe Wound Culture - Preliminary Beta hemolytic organism Laboratory Results 03/19/18 12:00: S.aureus Protein A PCR POSITIVE H, MRSA (PCR) POSITIVE H 03/19/18 16:18: POC Glucose 118 H 03/19/18 16:38: WBC 12.9 H, RBC 4.15 L, Hgb 10.9 L, Hct 35.5 L, MCV 85.5, MCH 26.3 L, MCHC 30.7 L, RDW 18.7 H, RDW Differential 57.6 H, Plt Count 248, MPV 9.9, Immature Gran % (Auto) 0.200, Neut % (Auto) 79.4 H, Lymph % (Auto) 9.6 L, [place] % (Auto) 9.4, Eos % (Auto) 1.2, Baso % (Auto) 0.2, Absolute Neuts (auto) 10.2 H, Absolute Lymphs (auto) 1.24, Total Counted Not Reportable, ESR 31 H 03/19/18 16:38: Sodium 143, Potassium 3.5, Chloride 106, Carbon Dioxide 32.0, Anion Gap 5, BUN 12, Creatinine 1.00, Estim Creat Clear Calc 68.94, Est GFR (MDRD) Af Amer 94, Est GFR (MDRD) Non-Af 78, BUN/Creatinine Ratio 12.0, Glucose 121 H, Calcium 8.2 L 03/19/18 22:05: POC Glucose 122 H 03/20/18 02:12: POC Glucose 118 H 03/20/18 05:50: Sodium 143, Potassium 3.7, Chloride 107, Carbon Dioxide 31.0, Anion Gap 5, BUN 11, Creatinine 0.99, Estim Creat Clear Calc 69.64, Est GFR (MDRD) Af Amer 96, Est GFR (MDRD) Non-Af 79, BUN/Creatinine Ratio 11.1, Glucose 125 H, Calcium 8.1 L 03/20/18 06:40: POC Glucose 124 H 03/20/18 11:35: POC Glucose 141 H Code Visit Inpatient E&M: 30325 Subs Hosp L3
[2018-03-20] MEDS: DULoxetine Hcl 60 MG Capsule PO (15:41)
[2018-03-20] MEDS: Pantoprazole Sodium 20 MG Tablet PO (16:57)
[2018-03-20] MEDS: Senna Tablet 1 TABLET PO (16:58)
[2018-03-20 17:06] LABS: Bedside Glucose 103 mg/dL (70-110)
--- NOTE | 2018-03-20 18:38 | LEAS ---
Arterial Study - Arterial Study Arterial Study: Bilateral lower extremity noninvasive arterial exam at rest Patient with a left great toe ulcer Right lower extremity The right PT and DP ankle-brachial index at rest are 1.03 and 1.06 respectively with triphasic right posterior tibial and dorsalis pedis Doppler waveforms. Volume pulse recordings demonstrate normal amplification at the calf. Ankle waveforms are moderately depressed. Left lower extremity The left PT and DP ankle-brachial index at rest 1.05 and 0.97 respectively. The left posterior tibial Doppler waveform is triphasic while the dorsalis pedis is biphasic. The volume pulse recordings do not demonstrate amplification the calf. The ankle waveforms are well maintained. Digital waveforms are well maintained. Impression Normal right lower extremity ankle-brachial indices and waveforms at rest Normal left lower extremity PT ankle-brachial index and waveform at rest. Mildly diminished left DP index at 0.97 with a biphasic waveform consistent with mild disease. Findings would not suggest critical ischemia. Vickey Carrera M.D., F.A.C.S.
[2018-03-20] MEDS: Zolpidem Tartrate 5 MG Tablet PO (21:41)
[2018-03-20] MEDS: Pravastatin 40 MG Tablet PO (21:41)
[2018-03-20] MEDS: Metoprolol Tartrate 25 MG Tablet PO (21:41)
[2018-03-20] MEDS: Gabapentin 600 MG Tablet 1200 MG PO (21:42)
[2018-03-20 22:00] LABS: Bedside Glucose 126 mg/dL (70-110)
[2018-03-21 02:24] VITALS: BP 128/64; PULSE 81; RESP 18; TEMP 36.4; O2SAT 99
[2018-03-21 05:09] LABS: Absolute Lymphocyte Count 1.11 X10^3/ul (0.83-4.51); Absolute Neutrophil Count 7.4 X10^3/uL (2.0-7.7); Basophil# 0.04 X10^3/uL; Basophil% 0.4 % (0-1); Eosinophil# 0.51 X10^3/uL; Eosinophils% 5.2 % (0-5); Hematocrit 33.5 % (40-54); Hemoglobin 10.2 g/dl (13.0-16.5); Lymphocyte # 1.11 X10^3/ul (4.0); Lymphocyte % 11.2 % (19-41); Mean Corp Hgb Conc 30.4 g/gl (32-36); Mean Corpuscular Hgb 26.2 pg (27.0-32.0); Mean Corpuscular Volume 86.1 fL (80-94); Mean Platelet Vol. 9.6 fl (6.2-12.0); Monocyte# 0.82 X10^3/uL; Monocyte% 8.3 % (0-10); Neutrophil # 7.38 X10^3/uL (2.7-7.7); Neutrophil % 74.7 % (47-70); POSITIVE COUNT NO; POSITIVE DIFFERENTIAL NO; POSITIVE MORPHOLOGY NO; Platelet Count 215 K/mm3 (150-450); Red Blood Count 3.89 M/mm3 (4.6-6.2); White Blood Count 9.9 K/mm3 (4.4-11.0)
[2018-03-21 05:23] LABS: Anion Gap 6 (5-15); BUN 10 mg/dL (7-18); BUN/Creat Ratio 10.5 RATIO (10-20); Calcium,Total 8.3 mg/dL (8.5-10.1); Chloride 106 mmol/L (98-107); Creatinine, Serum 0.95 mg/dL (0.70-1.30); EST Glomerular Filtration Rate 83 mL/min (>60); Est Glom Filt Rate - Afr Amer 100 mL/min (>60); Estimated Creatinine Clearance 72.57 ml/min; Glucose 127 mg/dL (74-106); Magnesium 2.1 mg/dL (1.6-2.6); Sodium Level 143 mmol/L (136-145)
[2018-03-21 05:26] LABS: Vancomycin, Trough Level 13.6 ug/mL (5.0-15.0)
[2018-03-21] MEDS: Pramipexole Di-HCl 0.5 MG Tablet PO (05:27)
[2018-03-21] MEDS: 0.9% NaCl IVPB Med Flush (250 mL) 15 ML IV (05:28)
--- NOTE | 2018-03-21 05:47 | PCM.RX.CS ---
Consult Pharmacy has been consulted to manage selected antiobiotic: Vancomycin Type of Consult: Follow-up Suspected Infection: Skin/Soft tissue Prior Doses of Antibiotics Received/Current Regimen: Medications Vancomycin HCl 1,500 mg/ (Sodium Chloride) 530 mls @ 250 mls/hr IV Q12H [facility] Stop: 03/21/18 07:40 Last Admin: 03/21/18 05:27 Dose: 250 mls/hr Vancomycin HCl 1,750 mg/ (Sodium Chloride) 535 mls @ 250 mls/hr IV Q12H [facility] Labs: Sodium 143 mmol/L (136-145) 03/21/18 04:50 Potassium 4.0 mmol/L (3.5-5.1) 03/21/18 04:50 Chloride 106 mmol/L (98-107) 03/21/18 04:50 Carbon Dioxide 31.0 mmol/L (21.0-32.0) 03/21/18 04:50 Anion Gap 6 (5-15) 03/21/18 04:50 BUN 10 mg/dL (7-18) 03/21/18 04:50 Creatinine 0.95 mg/dL (0.70-1.30) 03/21/18 04:50 Est GFR (MDRD) Af Amer 100 mL/min (>60) 03/21/18 04:50 Est GFR (MDRD) Non-Af 83 mL/min (>60) 03/21/18 04:50 BUN/Creatinine Ratio 10.5 RATIO (10-20) 03/21/18 04:50 Glucose 127 mg/dL (74-106) H 03/21/18 04:50 Vancomycin Trough 13.6 ug/mL (5.0-15.0) 03/21/18 04:50 Microbiology: Microbiology 03/19/18 12:00 Ulcer, Decubitus - Left Foot Gram Stain - Final 03/19/18 12:00 Ulcer, Decubitus - Left Foot Wound Culture - Preliminary Staphylococcus aureus 03/19/18 16:20 Wound - Toe Gram Stain - Final 03/19/18 16:20 Wound - Toe Wound Culture - Preliminary Beta hemolytic organism Weight used for dosin.2 kg Estimated Creatinine Clearance: 72.6 Goal Trough: 15-20 mcg/mL Pharmacy Plan for Drug Dosing: Trough level returned at 13.6, below target range of 15-20. Dose will be increased to 1750mg q12hrs. Pharmacy Service will continue to monitor and adjust dosing as required. Follow-Up Labs: Trough Vancomycin Labs to be done on [date and time ordered]: 03/23/18 @9205
--- NOTE | 2018-03-21 05:50 | PHA.PHARE_ITS ---
Consult Pharmacy has been consulted to manage selected antiobiotic: Vancomycin Type of Consult: Follow-up Suspected Infection: Skin/Soft tissue Prior Doses of Antibiotics Received/Current Regimen: Medications Vancomycin HCl 1,500 mg/ (Sodium Chloride) 530 mls @ 250 mls/hr IV Q12H [facility] Stop: 03/21/18 07:40 Last Admin: 03/21/18 05:27 Dose: 250 mls/hr Vancomycin HCl 1,750 mg/ (Sodium Chloride) 535 mls @ 250 mls/hr IV Q12H [facility] Labs: Sodium 143 mmol/L (136-145) 03/21/18 04:50 Potassium 4.0 mmol/L (3.5-5.1) 03/21/18 04:50 Chloride 106 mmol/L (98-107) 03/21/18 04:50 Carbon Dioxide 31.0 mmol/L (21.0-32.0) 03/21/18 04:50 Anion Gap 6 (5-15) 03/21/18 04:50 BUN 10 mg/dL (7-18) 03/21/18 04:50 Creatinine 0.95 mg/dL (0.70-1.30) 03/21/18 04:50 Est GFR (MDRD) Af Amer 100 mL/min (>60) 03/21/18 04:50 Est GFR (MDRD) Non-Af 83 mL/min (>60) 03/21/18 04:50 BUN/Creatinine Ratio 10.5 RATIO (10-20) 03/21/18 04:50 Glucose 127 mg/dL (74-106) H 03/21/18 04:50 Vancomycin Trough 13.6 ug/mL (5.0-15.0) 03/21/18 04:50 Microbiology: Microbiology 03/19/18 12:00 Ulcer, Decubitus - Left Foot Gram Stain - Final 03/19/18 12:00 Ulcer, Decubitus - Left Foot Wound Culture - Preliminary Staphylococcus aureus 03/19/18 16:20 Wound - Toe Gram Stain - Final 03/19/18 16:20 Wound - Toe Wound Culture - Preliminary Beta hemolytic organism Weight used for dosin.2 kg Estimated Creatinine Clearance: 72.6 Goal Trough: 15-20 mcg/mL Pharmacy Plan for Drug Dosing: Trough level returned at 13.6, below target range of 15-20. Dose will be increased to 1750mg q12hrs. Pharmacy Service will continue to monitor and adjust dosing as required. Follow-Up Labs: Trough Vancomycin Labs to be done on [date and time ordered]: 03/23/18 @5344
[2018-03-21 06:42] VITALS: PULSE 81; RESP 18; O2SAT 98
[2018-03-21] MEDS: Ipratropium/Albuterol Sulfate 3 ML AMPUL.NEB INHALATION (06:42)
[2018-03-21] MEDS: Budesonide Respules 0.5 MG/2 ML AMPUL.NEB. 0.25 MG INHALATION (06:42)
[2018-03-21 06:50] LABS: Bedside Glucose 119 mg/dL (70-110)
[2018-03-21 07:32] VITALS: BP 148/70; PULSE 81; RESP 18; TEMP 36.8; O2SAT 93
[2018-03-21] MEDS: Multivitamins,Ther W-Minerals Tablet 1 TABLET PO (08:01)
[2018-03-21] MEDS: Losartan Potassium 25 MG Tablet PO (08:01)
[2018-03-21] MEDS: Aspirin E.C. 81 MG Tablet PO (08:01)
[2018-03-21] MEDS: Glucerna Shake 120 ML LIQUID PO (08:01)
[2018-03-21] MEDS: Rivaroxaban 10 MG Tablet PO (08:02)
[2018-03-21] MEDS: Digoxin 250 MCG Tablet PO (08:02)
[2018-03-21] MEDS: Furosemide 40 MG Tablet PO (08:02)
[2018-03-21 10:00] LABS: Hemoglobin A1c 6.1 % (4.2-6.3)
--- NOTE | 2018-03-21 11:07 | PCM.DC ---
- Discharge Diagnoses Current Active Problems: Current Active and Chronic Problems (Last Reviewed 03/19/18 @ 15:11 by Titi Moore DO) Left leg cellulitis (Chronic) Non-pressure chronic ulcer of other part of left foot with fat layer exposed (Acute) You will use the following diet at home:: Calorie/Carbohydrate Controlled (specify 1200, 1400, etc) - 1800 ADA diet, Cardiac Discharge Activity: May Not Drive Call your doctor if you observe: Fever of 101 or Higher, Inability to urinate, Inability to have a bowel movement, Shortness of breath, Swelling in the ankles, Calf discomfort, Uncontrolled pain Allergies/Adverse Reactions: Allergies No Known Allergies Allergy (Verified 03/02/18 15:21) Medications to take at Discharge Fenofibrate [Tricor] 145 mg PO LUNCH 05/06/13 Folic Acid 1 mg PO DAILY@1200 05/06/13 Tiotropium [place] [Spiriva 18 MCG] 1 puff INHALATION DAILY 05/06/13 Duloxetine HCl 60 mg PO 1600 12/04/16 Pramipexole Di-HCl [Mirapex] 0.5 mg PO TID 12/04/16 aspirin 81 mg tablet,delayed release 81 mg PO QDAY 10/06/17 cyanocobalamin (vit B-12) 1,000 mcg tablet 1,000 mcg PO DAILY@1200 10/20/17 docusate sodium 100 mg capsule 100 mg PO BID cap 10/20/17 gabapentin 600 mg tablet 1,200 mg PO QHS tab 10/20/17 Budesonide [Pulmicort] 0.25 mg IH TID 10/23/17 Formoterol Fumarate [Perforomist] 20 mcg INHALATION BID 12/22/17 Multivit-Min/Iron Fum/Folic AC [Wctli-Terdsfo-Dehunjuc Tablet] 1 ea PO BID 12/22/17 Omeprazole 20 mg PO DAILY@1700 12/22/17 Digoxin 0.25 mg PO DAILY 01/27/18 furosemide 20 mg tablet 20 mg PO QODAY 02/25/18 furosemide 40 mg tablet 40 mg PO QODAY tab 02/25/18 rivaroxaban 10 mg tablet 10 mg PO DAILY 02/25/18 losartan 25 mg tablet 25 mg PO DAILY 03/02/18 Metoprolol Tartrate 25 mg PO QHS 03/19/18 Potassium Chloride [K-Tab ER] 20 meq PO DAILY 03/19/18 Pravastatin Sodium 40 mg PO QHS 03/19/18 Senna [Senokot] 1 tablet PO DINNER 03/19/18 Cefadroxil [Duracef] 500 mg PO BID #10 cap 03/21/18 Smz/Tmp Ds [Bactrim Ds] 1 tab PO BID #22 tab 03/21/18 The following prescriptions were given: Cefadroxil [Duracef] 500 mg PO BID #10 cap Smz/Tmp Ds [Bactrim Ds] 1 tab PO BID #22 tab Orders to be completed after discharge: Basic Metabolic Profile (BMP) Time Frame: 03/23/18, Location: Laboratory Digoxin Level Time Frame: 03/23/18, Location: Laboratory Magnesium Time Frame: 03/23/18, Location: Laboratory Primary Care Physician: Fany Hobson DO [Primary Care Provider] - Please follow up with your Primary Care Physician in: in 1-2 weeks to check labs digoxin, BMP and Mg Test Results: Test results from this visit will be discussed in further detail at your follow-up appointment, if applicable. Please Follow Up With: Gloria Chatman DPM When: in 1-2 weeks for left foot ulcer/cellulitis
--- NOTE | 2018-03-21 11:11 | DS.PCM_ITS ---
Discharge Date and Diagnosis - Problem List Patient Problems: Active and Suspected Problems (Last Reviewed 03/19/18 @ 15:11 by Titi Moore DO) Non-pressure chronic ulcer of other part of left foot with fat layer exposed (Acute) Date of Admission: 03/19/18 Date of Discharge: 03/21/18 - Primary Discharge Diagnosis Active and Suspected Problems (Last Reviewed 03/19/18 @ 15:11 by Titi Moore DO) Non-pressure chronic ulcer of other part of left foot with fat layer exposed (Acute) Acute left lower extremity cellulitis with left great toe chronic fat layer deep nonhealing ulcer; no osteomyelitis - Secondary Discharge Diagnosis Chronic Problems (Last Reviewed 03/19/18 @ 15:11 by Titi Moore DO) Left leg cellulitis (Chronic) Cellulitis (Chronic) Chronic atrial fibrillation (Chronic) angiolasty and stenting to BLE iliac arteries (Chronic 08/04/12) History of left heart catheterization (Chronic 12/04/16) Widely patent HERRERA and SVG grafts per [facility] 05/07/[address] Garcia [facility]; [facility] 05/16/[address] Naylor @ [facility] History of coronary artery stent placement (Chronic 12/23/06) [id number] anastomosis-LAD w/ Taxus 2.75 x 8 mm and POBA-PDA 12/23/2006 History of cardioversion (Chronic 12/2016) Iron deficiency anemia due to chronic blood loss (Chronic) Gastric AVMs, September 2017 Cancer of upper lobe of left lung (Chronic) Secondary pulmonary arterial hypertension (Chronic) Atherosclerosis of coronary artery of [place] heart without angina pectoris (Chronic) CABG x 2 HERRERA-LAD, SVG-OM 02/14/2006 [id number] anastomosis-LAD w/ Taxus 2.75 x 8 mm and POBA-PDA 12/23/2006 H/O coronary artery bypass surgery (Chronic 02/14/06) CABG x 2 HERRERA-LAD, SVG-OM 02/14/[address] Fei Castillo, [facility] 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 (Chronic) Hospital Course and Treatment Consultations 03/19/18 15:08 Consult: Onc/Wound/mailroom courier Routine Comment: Operations: None Summary of Care Provided: [] This 72-year-old gentleman with history of diabetes mellitus type 2, coronary artery disease status post CABG and stents, peripheral arterial disease in both lower legs status post stents in each leg, left upper lobe malignant neoplasm was admitted with chronic ulcer on left great toe for several months and was sent here from doctor's office after wound debridement. MRI of left foot was done and shows no osseous involvement/osteomyelitis. No fever or chills. The patient was seen and examined today. No fever or chills. Extent of redness has decreased. General: Alert, Oriented x3, Cooperative HEENT: Atraumatic, PERRLA, EOMI, Normocephalic Neck: Supple, No JVD, Negative Carotid Bruits Lungs: Clear to auscultation, No rhonchi, No wheeze, No rales, air entry diminished bilaterally Cardiovascular: Regular rate, Regular Rhythm, Normal S1, Normal S2, No murmurs, -diminished peripheral PT and dorsalis pedis arteries pulsation bilaterally. Abdomen: Bowel Sounds Present, Soft, Non Tender, Non-Distended Extremities: Capillary Refill Less than 3 Seconds, Edema Skin: Ulcer/ Wound - Small fat layer deep ulcer over medial left great toe. Dry. No discharge. Small superficial skin erosion on the right lower leg. Mild induration of left leg because of cellulitis. Musculoskeletal: No Tenderness to Palpation of Joints or Extremities, Arthritic Changes. Neurological: Cranial nerves II-XII grossly intact, - - Diminished sensation over both feet. Patient has diabetic neuropathy. Psych/Mental Status: Normal Affect, Appropriate 1. Acute left lower extremity cellulitis with left great toe chronic fat layer deep nonhealing ulcer; no osteomyelitis: Patient is being admitted on regular Medr floor. Osteomyelitis is ruled out. Initially Gram stain of wound culture of left foot toes shows MRSA and growing beta-hemolytic streptococci. Final wound culture shows MRSA and rare gram-positive rods. Micrology called and organisms confirmed. The patient was treated by IV vancomycin for last 3 days. Patient was seen by Dr. Chatman and Dr. Kruger. Extent of left lower lobe cellulitis marked by pain has improved and is much decreased and has improved very minimal redness. In view of rapid cellulitis and clinical suspicion of strep in addition to MRSA, patient is discharged on total 2 weeks of Bactrim and 5 more days of cefadroxil. Follow-up with PCP in 1-2 weeks. Follow-up Dr. Sommer in 1-2 weeks. 2. Diabetes mellitus type 2, complicated with diabetic neuropathy and probably has retinopathy. 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 On Humalog sliding scale insulin. Blood sugar is controlled. A1c tomorrow a.m. 3. Multiple cardiac disease: Coronary artery status post CABG, stents, mild carotid stenosis, chronic atrial fibrillation. Peripheral atherosclerotic disease of bilateral lower extremity status post stents. * Arterial Doppler of lower extremities ordered. * Patient hadstress echo in November 2017 which was negative for ischemia. EF 60% with VPCs, couplets and triplets. Carotid Dopplerv in November 2017 shows less than 50% stenosis in both extracranial internal carotid arteries. * A. fib rate controlled * Continue with metoprolol and digoxin * Continue with Xarelto 4. Advanced care planning: Discussed CPR, intubation and PEG tube's. Patient wishes to be full code with intubation and PEG tube's at this time if needed. 5. DVT prophylaxis: Patient is anticoagulated. Discharge medication reconciliation done. Follow-up instructions completed. Patient is on digoxin magnesium is 2.1 and K4.0. Follow-up labs of digoxin level, BMP and magnesium for was given and patient was advised to follow with PCP to adjust the dose. There is drug drug interaction of Bactrim with digoxin. Discharge medications including addition of antibiotics Bactrim and cefadroxil discussed with the patient. Patient is being discharged home. Total time spent, exact 35 minutes on discharge meds reconciliation, examination, review of imaging and blood test and discussion with the patient on follow-up instructions. Discharge Activity: May Not Drive Call your doctor if you observe: Fever of 101 or Higher, Inability to urinate, Inability to have a bowel movement, Shortness of breath, Swelling in the ankles, Calf discomfort, Uncontrolled pain Home Medications: Medications to take at Discharge Fenofibrate [Tricor] 145 mg PO LUNCH 05/06/13 Folic Acid 1 mg PO DAILY@1200 05/06/13 Tiotropium [place] [Spiriva 18 MCG] 1 puff INHALATION DAILY 05/06/13 Duloxetine HCl 60 mg PO 1600 12/04/16 Pramipexole Di-HCl [Mirapex] 0.5 mg PO TID 12/04/16 aspirin 81 mg tablet,delayed release 81 mg PO QDAY 10/06/17 cyanocobalamin (vit B-12) 1,000 mcg tablet 1,000 mcg PO DAILY@1200 10/20/17 docusate sodium 100 mg capsule 100 mg PO BID cap 10/20/17 gabapentin 600 mg tablet 1,200 mg PO QHS tab 10/20/17 Budesonide [Pulmicort] 0.25 mg IH TID 10/23/17 Formoterol Fumarate [Perforomist] 20 mcg INHALATION BID 12/22/17 Multivit-Min/Iron Fum/Folic AC [Pcvbm-Jrsqpbi-Rniijvou Tablet] 1 ea PO BID 12/22/17 Omeprazole 20 mg PO DAILY@1700 12/22/17 Digoxin 0.25 mg PO DAILY 01/27/18 furosemide 20 mg tablet 20 mg PO QODAY 02/25/18 furosemide 40 mg tablet 40 mg PO QODAY tab 02/25/18 rivaroxaban 10 mg tablet 10 mg PO DAILY 02/25/18 losartan 25 mg tablet 25 mg PO DAILY 03/02/18 Metoprolol Tartrate 25 mg PO QHS 03/19/18 Potassium Chloride [K-Tab ER] 20 meq PO DAILY 03/19/18 Pravastatin Sodium 40 mg PO QHS 03/19/18 Senna [Senokot] 1 tablet PO DINNER 03/19/18 Cefadroxil [Duracef] 500 mg PO BID #10 cap 03/21/18 Smz/Tmp Ds [Bactrim Ds] 1 tab PO BID #22 tab 03/21/18 Following Prescrptions Were Given to Patient: Cefadroxil [Duracef] 500 mg PO BID #10 cap Smz/Tmp Ds [Bactrim Ds] 1 tab PO BID #22 tab Other Amb Orders: Basic Metabolic Profile (BMP) Time Frame: 03/23/18, Location: Laboratory Digoxin Level Time Frame: 03/23/18, Location: Laboratory Magnesium Time Frame: 03/23/18, Location: Laboratory Primary Care Physician: Fany Hobson DO [Primary Care Provider] - Please follow up with your Primary Care Physician in: in 1-2 weeks to check labs digoxin, BMP and Mg Please Follow Up With: Gloria Chatman DPM When: in 1-2 weeks for left foot ulcer/cellulitis Medical Necessity - Tobacco Use Smoking Status: Former smoker Meaningful Use Info Meaningful Use Diagnoses (Choose all that apply): None applicable Code Visit Inpatient E&M: 59794 Disch Hosp
[2018-03-21 11:30] LABS: Bedside Glucose 133 mg/dL (70-110)
[2018-03-21 12:15] VITALS: BP 144/74; PULSE 88; RESP 18; TEMP 36.7
[2018-03-21] MEDS: Fenofibrate 145 MG Tablet PO (12:17)
[2018-03-21] MEDS: 0.9% NaCl VAD Flush 10 ML IV (12:17)
[2018-03-21] MEDS: Cyanocobalamin 500 MCG Tablet 1000 MCG PO (12:17)
[2018-03-21] MEDS: Folic Acid 1 MG Tablet PO (12:17)
[2018-03-21] MEDS: Docusate Sodium 100 MG Capsule PO (12:17)
[2018-03-21 13:15] VITALS: BP 144/74; PULSE 88; RESP 18; TEMP 36.7
== END 2018-03-21 13:22 | disposition home or self-care (01) ==
PROVIDERS: Podiatrist; Family Provider Internal Medicine; PCP Internal Medicine; Visit Provider Internal Medicine
DX: E11.621 Type 2 diabetes mellitus with foot ulcer (principal); L97.522 Non-pressure chronic ulcer of other part of left foot with fat layer exposed; E11.51 Type 2 diabetes mellitus with diabetic peripheral angiopathy without gangrene; I25.10 Atherosclerotic heart disease of native coronary artery without angina pectoris; L03.032 Cellulitis of left toe; I48.2 Chronic atrial fibrillation; I27.21 Secondary pulmonary arterial hypertension; D50.0 Iron deficiency anemia secondary to blood loss (chronic); C34.92 Malignant neoplasm of unspecified part of left bronchus or lung; E11.40 Type 2 diabetes mellitus with diabetic neuropathy, unspecified; H54.40 Blindness, one eye, unspecified eye; H35.30 Unspecified macular degeneration; Z95.1 Presence of aortocoronary bypass graft; Z79.899 Other long term (current) drug therapy; Z79.82 Long term (current) use of aspirin; Z79.51 Long term (current) use of inhaled steroids; J44.9 Chronic obstructive pulmonary disease, unspecified; M19.90 Unspecified osteoarthritis, unspecified site; F10.20 Alcohol dependence, uncomplicated; E66.9 Obesity, unspecified; Z68.39 Body mass index [BMI] 39.0-39.9, adult; Z71.3 Dietary counseling and surveillance; G47.33 Obstructive sleep apnea (adult) (pediatric); G25.0 Essential tremor; M20.42 Other hammer toe(s) (acquired), left foot; M20.41 Other hammer toe(s) (acquired), right foot; I10 Essential (primary) hypertension; K21.9 Gastro-esophageal reflux disease without esophagitis; F03.90 Unspecified dementia, unspecified severity, without behavioral disturbance, psychotic disturbance, mood disturbance, and anxiety; Z87.891 Personal history of nicotine dependence
CPT/HCPCS: 36415; 73630; 73718; 80048; 80202; 82962; 83036; 83735; 85025; 85652; 87070; 87075; 87077; 87081; 87186; 87205; 87640; 93923; 94640; 96365; 96366; 97110; 97162; 97165; 97530; 99218; J7040; J7050; A4216; G0378; G0379

== ENCOUNTER → 2018-03-23 13:03 | Outpatient (CLI) | payer MEDICARE, OTHER, SELFPAY ==
[2018-03-23 13:55] LABS: Anion Gap 7 (5-15); BUN 11 mg/dL (7-18); BUN/Creat Ratio 10.1 RATIO (10-20); Calcium,Total 8.7 mg/dL (8.5-10.1); Chloride 103 mmol/L (98-107); Creatinine, Serum 1.09 mg/dL (0.70-1.30); EST Glomerular Filtration Rate 71 mL/min (>60); Est Glom Filt Rate - Afr Amer 85 mL/min (>60); Glucose 82 mg/dL (74-106); Magnesium 2.1 mg/dL (1.6-2.6); Potassium 3.6 mmol/L (3.5-5.1); Sodium Level 141 mmol/L (136-145)
[2018-03-23 14:15] LABS: Digoxin Level 1.25 ng/mL (0.80-2.00)
== END ==
PROVIDERS: Family Provider Internal Medicine; PCP Internal Medicine; Referring Provider Internal Medicine; Visit Provider Internal Medicine
DX: Z79.899 Other long term (current) drug therapy (principal)
CPT/HCPCS: 36415; 80048; 80162; 83735

== ENCOUNTER 2018-05-15 10:35 | Inpatient (IN) | payer MEDICARE, OTHER, SELFPAY ==
[2018-05-14 12:58] VITALS: BMI 40.1
[2018-05-15 10:37] VITALS: BP 149/63; PULSE 92; RESP 16; TEMP 36.8; O2SAT 89; BMI 40.0
[2018-05-15 11:40] LABS: Absolute Lymphocyte Count 0.66 X10^3/ul (0.83-4.51); Absolute Neutrophil Count 8.4 X10^3/uL (2.0-7.7); Basophil# 0.02 X10^3/uL; Basophil% 0.2 % (0-1); Eosinophil# 0.07 X10^3/uL; Eosinophils% 0.7 % (0-5); Hemoglobin 10.3 g/dl (13.0-16.5); Lymphocyte # 0.66 X10^3/ul (4.0); Lymphocyte % 6.6 % (19-41); Mean Corp Hgb Conc 30.3 g/gl (32-36); Mean Corpuscular Hgb 25.2 pg (27.0-32.0); Mean Corpuscular Volume 83.3 fL (80-94); Mean Platelet Vol. 9.3 fl (6.2-12.0); Monocyte# 0.86 X10^3/uL; Monocyte% 8.6 % (0-10); Neutrophil # 8.41 X10^3/uL (2.7-7.7); Neutrophil % 83.8 % (47-70); Platelet Count 204 K/mm3 (150-450); RBC Distribution Width CV 17.7 % (11.6-14.6); RBC Distribution Width SD 54.1 fl (35.1-43.9); Red Blood Count 4.08 M/mm3 (4.6-6.2)
[2018-05-15 11:41] LABS: POSITIVE COUNT NO; POSITIVE DIFFERENTIAL NO; POSITIVE MORPHOLOGY NO
[2018-05-15 11:51] LABS: Anion Gap 7 (5-15); BUN 11 mg/dL (7-18); BUN/Creat Ratio 11.4 RATIO (10-20); Calcium,Total 8.1 mg/dL (8.5-10.1); Chloride 104 mmol/L (98-107); Creatinine, Serum 0.96 mg/dL (0.70-1.30); EST Glomerular Filtration Rate 81 mL/min (>60); Est Glom Filt Rate - Afr Amer 98 mL/min (>60); Estimated Creatinine Clearance 71.82 ml/min; Glucose 134 mg/dL (74-106); Potassium 3.6 mmol/L (3.5-5.1); Sodium Level 140 mmol/L (136-145)
[2018-05-15 12:53] VITALS: BP 151/64; PULSE 52; RESP 18; O2SAT 95
--- NOTE | 2018-05-15 13:25 | ED.DCSUM_ITS ---
- ER Visit Summary Date of Service: 05/15/18 Chief Complaint: Left lower leg cellulitis History of Present Illness: The patient is a 72 M your prior MRSA cellulitis left lower leg x2 prior episodes. He states that he did redness to his left lower leg starting last night. Subjective fever and chills. Denies nausea, vomiting or diarrhea. Says he has really felt well for the last 2 days. Denies any history of DVT or PE. Physical Examination: Older male. Vital signs are stable. Afebrile. Initial pulse ox is 89%. No respiratory distress. H EENT exam is unremarkable. Neck nontender. Lungs clear to auscultation bilaterally. Heart regular rhythm no murmur. Abdomen soft nontender. Normal bowel sounds no peritoneal signs. Extremities moves all 4. 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 His left leg between the ankle and just below the knee he has cellulitis. There is mild edema. It is mildly tender to touch and warm and red. There are no signs of any septic joints. Neurologically is awake and alert. No focal motor deficits. Test Results: CBC shows a white count of 10. Hemoglobin is also his baseline. Electrolytes are unremarkable normal creatinine and gap. Emergency Department Course and Treatment: Patient was started on vancomycin. On repeat exam the cellulitis was now spreading up the medial thigh above the knee. There was still just redness. No black skin nor any bruising. Patient is not having significant pain. He will also be started on IV clindamycin and IV Zosyn. I were spoken to the hospitalist for admission. Treatment Plan: Hospitalist to admit Disposition: Admission Impression: Acute left lower extremity cellulitis History of prior left lower extremity MRSA cellulitis. History of A. fib Anticoagulated on Xarelto This note was generated with [employer] dictation software. It may contain incorrect words, spelling, and punctuation that were not noted in review of the chart prior to signing ED Disposition - Plan for ED Patient: Chief Complaint: Lower Extremity Injury Referrals: Fany Hobson DO [Primary Care Provider] -
--- NOTE | 2018-05-15 13:27 | NURSING ---
MED SURG LEFT LEG CELLULITIS DEBBIE
--- NOTE | 2018-05-15 13:36 | PCM.HP.STD ---
Problem List (1) Left leg cellulitis Status: Acute History of Present Illness Date of Admission: 05/15/18 Chief Complaint: left leg redness. The patient is a 72 year old M a history of cellulitis presents with a 1 day history of left lower extremity redness. For the previous few days, patient was having some general and last night noted that his left leg was warm and red. Did not resolve and so presented to the emergency room. Patient was diagnosed with cellulitis and started on vancomycin. This is similar to the patient's prior episodes of cellulitis which this is now his third episode of left lower extremity cellulitis. Patient does have an ulcer on his left great toe that is healing up and is following up with wound care. There is been no other new wounds that he is aware of. Patient states that he feels chilled but no overt fevers. [] Past Medical History Past Medical History (Chronic Problems): Chronic Problems (Last Reviewed 05/06/18 @ 13:32 by Dagmar Strickland) Cellulitis (Chronic) Chronic atrial fibrillation (Chronic) angiolasty and stenting to BLE iliac arteries (Chronic 08/04/12) History of left heart catheterization (Chronic 12/04/16) Widely patent HERRERA and SVG grafts per [facility] 05/07/[address] Garcia [facility]; [facility] 05/16/[address] Naylor @ [facility] History of coronary artery stent placement (Chronic 12/23/06) [id number] anastomosis-LAD w/ Taxus 2.75 x 8 mm and POBA-PDA 12/23/2006 History of cardioversion (Chronic 12/2016) Iron deficiency anemia due to chronic blood loss (Chronic) Gastric AVMs, September 2017 Cancer of upper lobe of left lung (Chronic) Secondary pulmonary arterial hypertension (Chronic) Atherosclerosis of coronary artery of [place] heart without angina pectoris (Chronic) CABG x 2 HERRERA-LAD, SVG-OM 02/14/2006 [id number] anastomosis-LAD w/ Taxus 2.75 x 8 mm and POBA-PDA 12/23/2006 H/O coronary artery bypass surgery (Chronic 02/14/06) CABG x 2 HERRERA-LAD, SVG-OM 02/14/[address] Fei Castillo, [facility] 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 (Chronic) Medical History: Medical History (Last Updated 05/15/18 @ 13:39 by Titi Moore DO) GI bleed (Acute) K92.2 tsferred to [facility], transfused with 2 units PRBC's. Chronic atrial fibrillation (Chronic) I48.2 port placement (Acute) Secondary pulmonary arterial hypertension (Chronic) I27.21 Atherosclerosis of coronary artery of [place] heart without angina pectoris (Chronic) I25.10 CABG x 2 HERRERA-LAD, SVG-OM 02/14/2006 OAC-ROS-HBPF anastomosis-LAD w/ Taxus 2.75 x 8 mm and POBA-PDA 12/23/2006 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 (Chronic) C34.12 Chemotherapy induced neutropenia (Resolved) D70.1, T45.1X5A Anemia (Acute) D64.9 COPD (chronic obstructive pulmonary disease) (Acute) J44.9 Dyspnea (Acute) R06.00 Diabetes (Acute) E11.9 Neuropathy (Acute) G62.9 Arthritis (Acute) M19.90 Obesity (Acute) E66.9 Alcohol dependence (Acute) F10.20 GERD (gastroesophageal reflux disease) (Acute) K21.9 DJD (degenerative joint disease) (Acute) M19.90 Vascular disease (Acute) I99.9 Renal disease (Acute) N28.9 Macular degeneration (Acute) H35.30 Arrhythmia (Acute) I49.9 Migraine (Acute) G43.909 Memory loss (Acute) R41.3 Hypotestosteronism (Acute) E34.9 Essential tremor (Acute) G25.0 Parkinsons (Acute) G20 Dementia (Acute) F03.90 HEBER (obstructive sleep apnea) (Acute) G47.33 Benign essential hypertension (Acute) I10 Hammertoes of both feet (Acute) M20.41, M20.42 Adenocarcinoma of lung, stage 1 C34.90 Gastric AVM Q27.33 Allergies No Known Allergies Allergy (Verified 05/06/18 13:33) Home Medications: Ambulatory Orders Medication Instructions Recorded Fenofibrate [Tricor] 145 mg PO LUNCH 05/06/13 Folic Acid 1 mg PO DAILY@1200 05/06/13 Tiotropium [place] [Spiriva 18 MCG] 1 puff INHALATION DAILY 05/06/13 Duloxetine HCl 60 mg PO 1600 12/04/16 Pramipexole Di-HCl [Mirapex] 0.5 mg PO TID 12/04/16 aspirin 81 mg tablet,delayed 81 mg PO QDAY 10/06/17 release cyanocobalamin (vit B-12) 1,000 1,000 mcg PO DAILY@1200 10/20/17 mcg tablet docusate sodium 100 mg capsule 100 mg PO BID cap 10/20/17 gabapentin 600 mg tablet 1,200 mg PO QHS tab 10/20/17 Budesonide [Pulmicort] 0.25 mg IH TID 10/23/17 Formoterol Fumarate [Perforomist] 20 mcg INHALATION BID 12/22/17 Multivit-Min/Iron Fum/Folic AC 1 ea PO BID 12/22/17 [Rpxld-Etsuryb-Pokfcdxy Tablet] Omeprazole 20 mg PO DAILY@1700 12/22/17 Digoxin 0.25 mg PO DAILY 01/27/18 furosemide 20 mg tablet 20 mg PO QODAY 02/25/18 furosemide 40 mg tablet 40 mg PO QODAY tab 02/25/18 rivaroxaban 10 mg tablet 10 mg PO DAILY 02/25/18 losartan 25 mg tablet 25 mg PO DAILY 03/02/18 Metoprolol Tartrate 25 mg PO QHS 03/19/18 Potassium Chloride [K-Tab ER] 20 meq PO DAILY 03/19/18 Pravastatin Sodium 40 mg PO QHS 03/19/18 Senna [Senokot] 1 tablet PO DINNER 03/19/18 Surgical History: Surgical History (Last Reviewed 05/06/18 @ 13:33 by Dagmar Strickland) angiolasty and stenting to BLE iliac arteries (Chronic) Onset Date: 08/04/12 History of left heart catheterization (Chronic) Onset Date: 12/04/16 Z98.890 Widely patent HERRERA and SVG grafts per [facility] 05/07/[address] Garcia [facility]; [facility] 05/16/[address] Naylor @ [facility] History of coronary artery stent placement (Chronic) Onset Date: 12/23/06 Z95.5 YTR-[id number] anastomosis-LAD w/ Taxus 2.75 x 8 mm and POBA-PDA 12/23/2006 Left VATS procedure with wedge resection KATIE (Acute) History of cardioversion (Chronic) Onset Date: 12/2016 Z98.890 H/O coronary artery bypass surgery (Chronic) Onset Date: 02/14/06 Z95.1 CABG x 2 HERRERA-LAD, SVG-OM 02/14/[address] Fei Castillo, [facility] S/P CABG x 2 (Acute) Z95.1 Psychiatric History: No pertinent psych hx Lives: Spouse/ Significant Other Smoking Status: Former smoker Tobacco Use: Non-smoker Alcohol: None Drugs: None - *Family History Maternal Family History: Family History (Last Reviewed 05/15/18 @ 13:39 by Titi Moore DO) Sister Alcoholism Cancer Mother Arthritis Father Arthritis Brother Cancer Review of Systems Constitutional: Reports: Anorexia, Chills. Denies: Fever, Night Sweats Eyes: Denies: Blurred vision, Double vision HEENT: Denies: Head Aches, Sinus Congestion, Sinus Drainage Cardiovascular: Denies: Chest Pain, Palpitations Respiratory: Denies: Cough, Shortness of breath at rest, Sputum production Gastrointestinal: Reports: - - has noted some dark stool recently. Denies: Abdominal Pain, Hematochezia, Nausea, Vomiting Genitourinary: Denies: Dysuria Musculoskeletal: Reports: Leg Pain. Denies: Joint Pain, Joint Tenderness Skin: Reports: Rash - LLE. Denies: Wounds Neurological: Denies: Numbness, Tingling, Focal weakness Psychiatric: Denies: Anxiety, Depression Endocrine: Denies: Change in Body Habitus, Heat/ Cold Intolerance Hematologic/ Lymphatic: Denies: Easy Bruising, Easy Bleeding, Hx of blood clot Comment: A 10 point review of systems were negative except as mentioned in the history of present illness and the other review of systems. VTE Information - Inpt Only VTE Present on Admission: No VTE Mechan Device Prophylaxis: None VTE Pharm Prophylaxis ordered?: Yes - Physical Exam General: Alert, Cooperative, No apparent distress, - - Nontoxic. Afebrile. HEENT: Atraumatic, Normocephalic, - - No scleral icterus Oral: Moist Mucosa, No Gingival or Mucosal Lesions/ Ulcerations Neck: No Nodes, Thyroid Normal Size and Texture Lungs: Clear to auscultation, Normal air movement, No rhonchi, No wheeze Cardiovascular: Regular rate, Regular Rhythm, Normal S1, Normal S2, No murmurs Abdomen: Bowel Sounds Present, Soft, Non Tender, Non-Distended, No Hepato-splenomegaly Extremities: No edema, No Calf Tenderness Skin: - - Bright erythema of the anterior fisher on the left lower extremity. There is some warmth but no induration and no fluctuance. Superficial healing ulcer medial aspect of plantar aspect of the left great toe. No surrounding erythema nor any fluctuance noted. Musculoskeletal: No Tenderness to Palpation of Joints or Extremities, No Muscle Wasting Neurological: Sensory exam intact to light touch and pain, - - No clonus. Psych/Mental Status: Normal Affect, Appropriate Vital Signs Temp Pulse Resp BP Pulse Ox 36.8 C 52 L 18 151/64 H 95 05/15/18 10:37 05/15/18 12:53 05/15/18 12:53 05/15/18 12:53 05/15/18 12:53 Oxygen Delivery Method Room Air Weight: 126.552 kg Body Mass Index (BMI) 40.0 Laboratory Tests Past 24 Hrs 05/15/18 05/15/18 11:30 11:30 WBC 10.0 RBC 4.08 L Hgb 10.3 L Hct 34.0 L MCV 83.3 MCH 25.2 L MCHC 30.3 L RDW 17.7 H RDW Differential 54.1 H Plt Count 204 MPV 9.3 Immature Gran % (Auto) 0.100 Neut % (Auto) 83.8 H Lymph % (Auto) 6.6 L Lake % (Auto) 8.6 Eos % (Auto) 0.7 Baso % (Auto) 0.2 Absolute Neuts (auto) 8.4 H Absolute Lymphs (auto) 0.66 L Total Counted Not Reportable Sodium 140 Potassium 3.6 Chloride 104 Carbon Dioxide 29.0 Anion Gap 7 BUN 11 Creatinine 0.96 Estim Creat Clear Calc 71.82 Est GFR (MDRD) Af Amer 98 Est GFR (MDRD) Non-Af 81 BUN/Creatinine Ratio 11.4 Glucose 134 H Calcium 8.1 L Assessment/Plan All Active Problems (Last Reviewed 05/06/18 @ 13:33 by Dagmar Strickland) Left leg cellulitis (Acute) Non-pressure chronic ulcer of other part of left foot with fat layer exposed (Acute) Educational circumstance (Acute) GI bleed (Acute) Left VATS procedure with wedge resection KATIE (Acute) port placement (Acute) Educational circumstance (Acute) Antineoplastic chemotherapy induced anemia (Resolved) Constipation (Acute) Chemotherapy induced neutropenia (Resolved) Anemia (Acute) COPD (chronic obstructive pulmonary disease) (Acute) Dyspnea (Acute) Diabetes (Acute) Neuropathy (Acute) Arthritis (Acute) Obesity (Acute) Alcohol dependence (Acute) GERD (gastroesophageal reflux disease) (Acute) DJD (degenerative joint disease) (Acute) Vascular disease (Acute) Renal disease (Acute) Macular degeneration (Acute) Arrhythmia (Acute) Migraine (Acute) Memory loss (Acute) Hypotestosteronism (Acute) Essential tremor (Acute) Parkinsons (Acute) Dementia (Acute) HEBER (obstructive sleep apnea) (Acute) Benign essential hypertension (Acute) Hammertoes of both feet (Acute) S/P CABG x 2 (Acute) 1. Left lower extremity cellulitis Has tested positive for MRSA in the past Will continue with vancomycin Check a wound culture for MRSA This is the patient's third bout and similar presentation, will do some decolonization of his nares bilaterally. Patient has previously been treated with Bactrim and cefadroxil. 2. Left great toe wound Per the patient, he is told that this is actually healing up better and is following up with Dr. Chatman Consult wound care to continue with wound management Again, this could be the nidus of his infection 3. Dark stools No over to melena and certainly no hematochezia Does have a history of gastric AVMs per history though the patient describes it as a hole in his stomach. I specified the patient that he is not had a perforation. Check Hemoccult 4. DVT prophylaxis with low back rate heparin. If heme positive consider change of SCDs. Code Visit Inpatient E&M: 03172 Init Hosp L3
--- NOTE | 2018-05-15 13:40 | HP.PCM_ITS ---
Problem List (1) Left leg cellulitis Status: Acute History of Present Illness Date of Admission: 05/15/18 Chief Complaint: left leg redness. The patient is a 72 year old M a history of cellulitis presents with a 1 day history of left lower extremity redness. For the previous few days, patient was having some general and last night noted that his left leg was warm and red. Did not resolve and so presented to the emergency room. Patient was diagnosed with cellulitis and started on vancomycin. This is similar to the patient's prior episodes of cellulitis which this is now his third episode of left lower extremity cellulitis. Patient does have an ulcer on his left great toe that is healing up and is following up with wound care. There is been no other new wounds that he is aware of. Patient states that he feels chilled but no overt fevers. [] Past Medical History Past Medical History (Chronic Problems): Chronic Problems (Last Reviewed 05/06/18 @ 13:32 by Dagmar Strickland) Cellulitis (Chronic) Chronic atrial fibrillation (Chronic) angiolasty and stenting to BLE iliac arteries (Chronic 08/04/12) History of left heart catheterization (Chronic 12/04/16) Widely patent HERRERA and SVG grafts per [facility] 05/07/[address] Garcia [facility]; [facility] 05/16/[address] Naylor @ [facility] History of coronary artery stent placement (Chronic 12/23/06) [id number] anastomosis-LAD w/ Taxus 2.75 x 8 mm and POBA-PDA 12/23/2006 History of cardioversion (Chronic 12/2016) Iron deficiency anemia due to chronic blood loss (Chronic) Gastric AVMs, September 2017 Cancer of upper lobe of left lung (Chronic) Secondary pulmonary arterial hypertension (Chronic) Atherosclerosis of coronary artery of [place] heart without angina pectoris (Chronic) CABG x 2 HERRERA-LAD, SVG-OM 02/14/2006 [id number] anastomosis-LAD w/ Taxus 2.75 x 8 mm and POBA-PDA 12/23/2006 H/O coronary artery bypass surgery (Chronic 02/14/06) CABG x 2 HERRERA-LAD, SVG-OM 02/14/[address] Fei Castillo, [facility] 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 (Chronic) Medical History: Medical History (Last Updated 05/15/18 @ 13:39 by Titi Moore DO) GI bleed (Acute) K92.2 tsferred to [facility], transfused with 2 units PRBC's. Chronic atrial fibrillation (Chronic) I48.2 port placement (Acute) Secondary pulmonary arterial hypertension (Chronic) I27.21 Atherosclerosis of coronary artery of [place] heart without angina pectoris (Chronic) I25.10 CABG x 2 HERRERA-LAD, SVG-OM 02/14/2006 [id number]-[id number] anastomosis-LAD w/ Taxus 2.75 x 8 mm and POBA-PDA 12/23/2006 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 (Chronic) C34.12 Chemotherapy induced neutropenia (Resolved) D70.1, T45.1X5A Anemia (Acute) D64.9 COPD (chronic obstructive pulmonary disease) (Acute) J44.9 Dyspnea (Acute) R06.00 Diabetes (Acute) E11.9 Neuropathy (Acute) G62.9 Arthritis (Acute) M19.90 Obesity (Acute) E66.9 Alcohol dependence (Acute) F10.20 GERD (gastroesophageal reflux disease) (Acute) K21.9 DJD (degenerative joint disease) (Acute) M19.90 Vascular disease (Acute) I99.9 Renal disease (Acute) N28.9 Macular degeneration (Acute) H35.30 Arrhythmia (Acute) I49.9 Migraine (Acute) G43.909 Memory loss (Acute) R41.3 Hypotestosteronism (Acute) E34.9 Essential tremor (Acute) G25.0 Parkinsons (Acute) G20 Dementia (Acute) F03.90 HEBER (obstructive sleep apnea) (Acute) G47.33 Benign essential hypertension (Acute) I10 Hammertoes of both feet (Acute) M20.41, M20.42 Adenocarcinoma of lung, stage 1 C34.90 Gastric AVM Q27.33 Allergies No Known Allergies Allergy (Verified 05/06/18 13:33) Home Medications: Ambulatory Orders Medication Instructions Recorded Fenofibrate [Tricor] 145 mg PO LUNCH 05/06/13 Folic Acid 1 mg PO DAILY@1200 05/06/13 Tiotropium [place] [Spiriva 18 MCG] 1 puff INHALATION DAILY 05/06/13 Duloxetine HCl 60 mg PO 1600 12/04/16 Pramipexole Di-HCl [Mirapex] 0.5 mg PO TID 12/04/16 aspirin 81 mg tablet,delayed 81 mg PO QDAY 10/06/17 release cyanocobalamin (vit B-12) 1,000 1,000 mcg PO DAILY@1200 10/20/17 mcg tablet docusate sodium 100 mg capsule 100 mg PO BID cap 10/20/17 gabapentin 600 mg tablet 1,200 mg PO QHS tab 10/20/17 Budesonide [Pulmicort] 0.25 mg IH TID 10/23/17 Formoterol Fumarate [Perforomist] 20 mcg INHALATION BID 12/22/17 Multivit-Min/Iron Fum/Folic AC 1 ea PO BID 12/22/17 [Jjvxv-Xijdmbu-Kbedizeb Tablet] Omeprazole 20 mg PO DAILY@1700 12/22/17 Digoxin 0.25 mg PO DAILY 01/27/18 furosemide 20 mg tablet 20 mg PO QODAY 02/25/18 furosemide 40 mg tablet 40 mg PO QODAY tab 02/25/18 rivaroxaban 10 mg tablet 10 mg PO DAILY 02/25/18 losartan 25 mg tablet 25 mg PO DAILY 03/02/18 Metoprolol Tartrate 25 mg PO QHS 03/19/18 Potassium Chloride [K-Tab ER] 20 meq PO DAILY 03/19/18 Pravastatin Sodium 40 mg PO QHS 03/19/18 Senna [Senokot] 1 tablet PO DINNER 03/19/18 Surgical History: Surgical History (Last Reviewed 05/06/18 @ 13:33 by Dagmar Strickland) angiolasty and stenting to BLE iliac arteries (Chronic) Onset Date: 08/04/12 History of left heart catheterization (Chronic) Onset Date: 12/04/16 Z98.890 Widely patent HERRERA and SVG grafts per [facility] 05/07/[address] Garcia [facility]; [facility] 05/16/[address] Naylor @ [facility] History of coronary artery stent placement (Chronic) Onset Date: 12/23/06 Z95.5 QKV-UTC-[id number] anastomosis-LAD w/ Taxus 2.75 x 8 mm and POBA-PDA 12/23/2006 Left VATS procedure with wedge resection KATIE (Acute) History of cardioversion (Chronic) Onset Date: 12/2016 Z98.890 H/O coronary artery bypass surgery (Chronic) Onset Date: 02/14/06 Z95.1 CABG x 2 HERRERA-LAD, SVG-OM 02/14/[address] Fei Castillo, [facility] S/P CABG x 2 (Acute) Z95.1 Psychiatric History: No pertinent psych hx Lives: Spouse/ Significant Other Smoking Status: Former smoker Tobacco Use: Non-smoker Alcohol: None Drugs: None - *Family History Maternal Family History: Family History (Last Reviewed 05/15/18 @ 13:39 by Titi Moore DO) Sister Alcoholism Cancer Mother Arthritis Father Arthritis Brother Cancer Review of Systems Constitutional: Reports: Anorexia, Chills. Denies: Fever, Night Sweats Eyes: Denies: Blurred vision, Double vision HEENT: Denies: Head Aches, Sinus Congestion, Sinus Drainage Cardiovascular: Denies: Chest Pain, Palpitations Respiratory: Denies: Cough, Shortness of breath at rest, Sputum production Gastrointestinal: Reports: - - has noted some dark stool recently. Denies: Abdominal Pain, Hematochezia, Nausea, Vomiting Genitourinary: Denies: Dysuria Musculoskeletal: Reports: Leg Pain. Denies: Joint Pain, Joint Tenderness Skin: Reports: Rash - LLE. Denies: Wounds Neurological: Denies: Numbness, Tingling, Focal weakness Psychiatric: Denies: Anxiety, Depression Endocrine: Denies: Change in Body Habitus, Heat/ Cold Intolerance Hematologic/ Lymphatic: Denies: Easy Bruising, Easy Bleeding, Hx of blood clot Comment: A 10 point review of systems were negative except as mentioned in the history of present illness and the other review of systems. VTE Information - Inpt Only VTE Present on Admission: No VTE Mechan Device Prophylaxis: None VTE Pharm Prophylaxis ordered?: Yes - Physical Exam General: Alert, Cooperative, No apparent distress, - - Nontoxic. Afebrile. HEENT: Atraumatic, Normocephalic, - - No scleral icterus Oral: Moist Mucosa, No Gingival or Mucosal Lesions/ Ulcerations Neck: No Nodes, Thyroid Normal Size and Texture Lungs: Clear to auscultation, Normal air movement, No rhonchi, No wheeze Cardiovascular: Regular rate, Regular Rhythm, Normal S1, Normal S2, No murmurs Abdomen: Bowel Sounds Present, Soft, Non Tender, Non-Distended, No Hepato- splenomegaly Extremities: No edema, No Calf Tenderness Skin: - - Bright erythema of the anterior fisher on the left lower extremity. There is some warmth but no induration and no fluctuance. Superficial healing ulcer medial aspect of plantar aspect of the left great toe. No surrounding erythema nor any fluctuance noted. Musculoskeletal: No Tenderness to Palpation of Joints or Extremities, No Muscle Wasting Neurological: Sensory exam intact to light touch and pain, - - No clonus. Psych/Mental Status: Normal Affect, Appropriate Vital Signs Temp Pulse Resp BP Pulse Ox 36.8 C 52 L 18 151/64 H 95 05/15/18 10:37 05/15/18 12:53 05/15/18 12:53 05/15/18 12:53 05/15/18 12:53 Oxygen Delivery Method Room Air Weight: 126.552 kg Body Mass Index (BMI) 40.0 Laboratory Tests Past 24 Hrs 05/15/18 05/15/18 11:30 11:30 WBC 10.0 RBC 4.08 L Hgb 10.3 L Hct 34.0 L MCV 83.3 MCH 25.2 L MCHC 30.3 L RDW 17.7 H RDW Differential 54.1 H Plt Count 204 MPV 9.3 Immature Gran % (Auto) 0.100 Neut % (Auto) 83.8 H Lymph % (Auto) 6.6 L [place] % (Auto) 8.6 Eos % (Auto) 0.7 Baso % (Auto) 0.2 Absolute Neuts (auto) 8.4 H Absolute Lymphs (auto) 0.66 L Total Counted Not Reportable Sodium 140 Potassium 3.6 Chloride 104 Carbon Dioxide 29.0 Anion Gap 7 BUN 11 Creatinine 0.96 Estim Creat Clear Calc 71.82 Est GFR (MDRD) Af Amer 98 Est GFR (MDRD) Non-Af 81 BUN/Creatinine Ratio 11.4 Glucose 134 H Calcium 8.1 L Assessment/Plan All Active Problems (Last Reviewed 05/06/18 @ 13:33 by Dagmar Strickland) Left leg cellulitis (Acute) Non-pressure chronic ulcer of other part of left foot with fat layer exposed (Acute) Educational circumstance (Acute) GI bleed (Acute) Left VATS procedure with wedge resection KATIE (Acute) port placement (Acute) Educational circumstance (Acute) Antineoplastic chemotherapy induced anemia (Resolved) Constipation (Acute) Chemotherapy induced neutropenia (Resolved) Anemia (Acute) COPD (chronic obstructive pulmonary disease) (Acute) Dyspnea (Acute) Diabetes (Acute) Neuropathy (Acute) Arthritis (Acute) Obesity (Acute) Alcohol dependence (Acute) GERD (gastroesophageal reflux disease) (Acute) DJD (degenerative joint disease) (Acute) Vascular disease (Acute) Renal disease (Acute) Macular degeneration (Acute) Arrhythmia (Acute) Migraine (Acute) Memory loss (Acute) Hypotestosteronism (Acute) Essential tremor (Acute) Parkinsons (Acute) Dementia (Acute) HEBER (obstructive sleep apnea) (Acute) Benign essential hypertension (Acute) Hammertoes of both feet (Acute) S/P CABG x 2 (Acute) 1. Left lower extremity cellulitis * Has tested positive for MRSA in the past * Will continue with vancomycin * Check a wound culture for MRSA * This is the patient's third bout and similar presentation, will do some decolonization of his nares bilaterally. * Patient has previously been treated with Bactrim and cefadroxil. 2. Left great toe wound * Per the patient, he is told that this is actually healing up better and is following up with Dr. Chatman * Consult wound care to continue with wound management * Again, this could be the nidus of his infection 3. Dark stools * No over to melena and certainly no hematochezia * Does have a history of gastric AVMs per history though the patient describes it as a hole in his stomach. I specified the patient that he is not had a perforation. * Check Hemoccult 4. DVT prophylaxis with low back rate heparin. If heme positive consider change of SCDs. Code Visit Inpatient E&M: 20900 Init Hosp L3
[2018-05-15 14:14] VITALS: BMI 40.0
[2018-05-15 15:03] VITALS: BMI 39.5
[2018-05-15 15:43] VITALS: BP 168/78; PULSE 95; RESP 18; TEMP 36.7; O2SAT 95
--- NOTE | 2018-05-15 17:06 | PCM.RX.CS ---
Consult Pharmacy has been consulted to manage selected antiobiotic: Vancomycin Type of Consult: New start Suspected Infection: Skin/Soft tissue Prior Doses of Antibiotics Received/Current Regimen: Vancomycin 2000mg IV x1 given in the ER 05/15/18 at 1200 Labs: Sodium 140 mmol/L (136-145) 05/15/18 11:30 Potassium 3.6 mmol/L (3.5-5.1) 05/15/18 11:30 Chloride 104 mmol/L (98-107) 05/15/18 11:30 Carbon Dioxide 29.0 mmol/L (21.0-32.0) 05/15/18 11:30 Anion Gap 7 (5-15) 05/15/18 11:30 BUN 11 mg/dL (7-18) 05/15/18 11:30 Creatinine 0.96 mg/dL (0.70-1.30) 05/15/18 11:30 Est GFR (MDRD) Af Amer 98 mL/min (>60) 05/15/18 11:30 Est GFR (MDRD) Non-Af 81 mL/min (>60) 05/15/18 11:30 BUN/Creatinine Ratio 11.4 RATIO (10-20) 05/15/18 11:30 Glucose 134 mg/dL (74-106) H 05/15/18 11:30 Weight used for dosin kg Estimated Creatinine Clearance: 72ml/min Goal Trough: 15-20 mcg/mL Pharmacy Plan for Drug Dosing: Recommend Vancomycin IV 1750mg q12h starting 05/15/18 at 2300. Trough will be drawn 05/17/18 at 1030 Pharmacy Service will continue to monitor and adjust dosing as required. Follow-Up Labs: Trough Vancomycin Labs to be done on [date and time ordered]: trough level 05/17/18 at 2300
[2018-05-15 17:11] LABS: Probe Check PASS; Staph aureus DNA By PCR POSITIVE (Negative)
[2018-05-15 17:12] LABS: M R Staph aureus DNA By PCR POSITIVE (Negative)
--- NOTE | 2018-05-15 17:12 | NURSING ---
lab called with critical result of +MRSA swab. informed MD and primary RN.
[2018-05-15] MEDS: Senna Tablet 1 TABLET PO (17:58)
[2018-05-15] MEDS: Pantoprazole Sodium 20 MG Tablet PO (17:58)
[2018-05-15] MEDS: DULoxetine Hcl 60 MG Capsule PO (17:58)
[2018-05-15] MEDS: Pramipexole Di-HCl 0.25 MG Tablet 0.75 MG PO ×2 (17:58→22:03)
[2018-05-15 19:00] VITALS: PULSE 94; RESP 18
[2018-05-15] MEDS: Ipratropium/Albuterol Sulfate 3 ML AMPUL.NEB INHALATION (19:00)
[2018-05-15] MEDS: Budesonide Respules 0.5 MG/2 ML AMPUL.NEB. 0.25 MG INHALATION (19:00)
[2018-05-15 21:50] VITALS: BP 159/78; PULSE 95; RESP 18; TEMP 36.7; O2SAT 96
[2018-05-15 22:02] VITALS: BP 159/78; PULSE 95
[2018-05-15] MEDS: Metoprolol Tartrate 25 MG Tablet PO (22:02)
[2018-05-15] MEDS: Pravastatin 40 MG Tablet PO (22:02)
[2018-05-15] MEDS: Docusate Sodium 100 MG Capsule PO (22:02)
[2018-05-15] MEDS: Gabapentin 600 MG Tablet 1200 MG PO (22:02)
[2018-05-15] MEDS: Mupirocin Ointment 22gm Tube 1 APPLIC NASAL (22:03)
[2018-05-15] MEDS: 0.9% NaCl Peripheral Flush Adult/Peds IV (22:52)
[2018-05-16] VITALS (9 sets, daily range): BP systolic 139–150; BP diastolic 55–75; PULSE 74–97; RESP 16–19; TEMP 36.5–37.1; O2SAT 92–98
--- NOTE | 2018-05-16 05:22 | NURSING ---
pt has only voided 50ml since being admitted. he has expiratory wheezes throughout with fine crackles in post bases. VS wnl. Dr Foreman made aware. New ordered for 40mg Lasix IV Push and continue to monitor
[2018-05-16] MEDS: Pramipexole Di-HCl 0.25 MG Tablet 0.75 MG PO ×3 (05:57→20:37)
[2018-05-16] MEDS: Ipratropium/Albuterol Sulfate 3 ML AMPUL.NEB INHALATION ×3 (06:43→19:30)
[2018-05-16] MEDS: Budesonide Respules 0.5 MG/2 ML AMPUL.NEB. 0.25 MG INHALATION ×3 (06:43→19:30)
[2018-05-16 07:51] LABS: Absolute Lymphocyte Count 1.04 X10^3/ul (0.83-4.51); Absolute Neutrophil Count 5.4 X10^3/uL (2.0-7.7); Basophil# 0.04 X10^3/uL; Basophil% 0.5 % (0-1); Eosinophil# 0.31 X10^3/uL; Eosinophils% 3.9 % (0-5); Hematocrit 32.1 % (40-54); Hemoglobin 9.6 g/dl (13.0-16.5); Lymphocyte # 1.04 X10^3/ul (4.0); Lymphocyte % 13.2 % (19-41); Mean Corp Hgb Conc 29.9 g/gl (32-36); Mean Corpuscular Hgb 25.5 pg (27.0-32.0); Mean Corpuscular Volume 85.4 fL (80-94); Mean Platelet Vol. 10.4 fl (6.2-12.0); Monocyte# 1.02 X10^3/uL; Monocyte% 12.9 % (0-10); Neutrophil # 5.44 X10^3/uL (2.7-7.7); Neutrophil % 69.1 % (47-70); Platelet Count 208 K/mm3 (150-450); RBC Distribution Width SD 54.5 fl (35.1-43.9); Red Blood Count 3.76 M/mm3 (4.6-6.2); White Blood Count 7.9 K/mm3 (4.4-11.0)
[2018-05-16 07:52] LABS: POSITIVE COUNT NO; POSITIVE DIFFERENTIAL NO; POSITIVE MORPHOLOGY NO
[2018-05-16 08:18] LABS: Anion Gap 8 (5-15); BUN 9 mg/dL (7-18); BUN/Creat Ratio 9.9 RATIO (10-20); Calcium,Total 8.1 mg/dL (8.5-10.1); Chloride 105 mmol/L (98-107); Creatinine, Serum 0.91 mg/dL (0.70-1.30); EST Glomerular Filtration Rate 87 mL/min (>60); Est Glom Filt Rate - Afr Amer 105 mL/min (>60); Estimated Creatinine Clearance 75.76 ml/min; Glucose 109 mg/dL (74-106); Potassium 3.7 mmol/L (3.5-5.1); Sodium Level 142 mmol/L (136-145)
--- NOTE | 2018-05-16 09:26 | PCM.PN.HOSP ---
Subjective: Doing well, no complaints, frustrated with how often he is having cellulitis in the last few months. Wound in his left leg is healing ok Vitals/I&O's: Vital Signs Temp Pulse Resp BP Pulse Ox 98 F 74 18 143/72 H 92 05/16/18 07:49 05/16/18 07:49 05/16/18 07:49 05/16/18 07:49 05/16/18 07:49 Oxygen Flow Rate (L/min) 2 Oxygen Delivery Method Room Air Weight: 275 lb 9.245 oz Body Mass Index (BMI) 39.5 Intake and Output for Last 24 Hours 05/14/18 05/15/18 05/16/18 23:59 23:59 23:59 Intake Total 850 / 850 1152 / 1152 Output Total 500 / 500 Balance 850 / 850 652 / 652 General: Alert, Oriented x3, Cooperative HEENT: Atraumatic, EOMI, Normocephalic Oral: Moist Mucosa Neck: Supple, No JVD Lungs: Clear to auscultation, Normal air movement, No rhonchi, No wheeze, No rales Cardiovascular: Regular rate, Regular Rhythm, Normal S1, Normal S2, No murmurs Abdomen: Soft, Non Tender, Non-Distended, No Hepato-splenomegaly Extremities: No edema, Capillary Refill Less than 3 Seconds Skin: - - erythema on the anterior tibia with a superficial wound to the left great toe Neurological: Neuro grossly intact, Sensory exam intact to light touch and pain Psych/Mental Status: Normal Affect, Appropriate Laboratory Results 05/15/18 11:30: WBC 10.0, RBC 4.08 L, Hgb 10.3 L, Hct 34.0 L, MCV 83.3, MCH 25.2 L, MCHC 30.3 L, RDW 17.7 H, RDW Differential 54.1 H, Plt Count 204, MPV 9.3, Immature Gran % (Auto) 0.100, Neut % (Auto) 83.8 H, Lymph % (Auto) 6.6 L, [place] % (Auto) 8.6, Eos % (Auto) 0.7, Baso % (Auto) 0.2, Absolute Neuts (auto) 8.4 H, Absolute Lymphs (auto) 0.66 L, Total Counted Not Reportable 05/15/18 11:30: Sodium 140, Potassium 3.6, Chloride 104, Carbon Dioxide 29.0, Anion Gap 7, BUN 11, Creatinine 0.96, Estim Creat Clear Calc 71.82, Est GFR (MDRD) Af Amer 98, Est GFR (MDRD) Non-Af 81, BUN/Creatinine Ratio 11.4, Glucose 134 H, Calcium 8.1 L 05/15/18 15:45: S.aureus Protein A PCR POSITIVE H, MRSA (PCR) POSITIVE H 05/16/18 07:20: WBC 7.9, RBC 3.76 L, Hgb 9.6 L, Hct 32.1 L, MCV 85.4, MCH 25.5 L, MCHC 29.9 L, RDW 18.0 H, RDW Differential 54.5 H, Plt Count 208, MPV 10.4, Immature Gran % (Auto) 0.400, Neut % (Auto) 69.1, Lymph % (Auto) 13.2 L, [place] % (Auto) 12.9 H, Eos % (Auto) 3.9, Baso % (Auto) 0.5, Absolute Neuts (auto) 5.4, Absolute Lymphs (auto) 1.04, Total Counted Not Reportable 05/16/18 07:20: Sodium 142, Potassium 3.7, Chloride 105, Carbon Dioxide 29.0, Anion Gap 8, BUN 9, Creatinine 0.91, Estim Creat Clear Calc 75.76, Est GFR (MDRD) Af Amer 105, Est GFR (MDRD) Non-Af 87, BUN/Creatinine Ratio 9.9 L, Glucose 109 H, Calcium 8.1 L Current Medications Acetaminophen (Tylenol) 650 mg PO Q6H PRN PRN PRN Reason: Mild Pain (1-3)/Temp > 100.7 F Albuterol/Ipratropium (Duoneb) 3 ml INHALATION Q6HWA.RT NATALIE Last Admin: 05/16/18 06:43 Dose: 3 ml Aspirin (Ecotrin) 81 mg PO DAILY@0800 NATALIE Budesonide (Pulmicort Aerosol) 0.25 mg INHALATION TID.RT NATALIE Last Admin: 05/16/18 06:43 Dose: 0.25 mg Chlorhexidine Gluconate () 1 each TOPICAL DAILY NATALIE Stop: 05/21/18 10:01 Cyanocobalamin (Vitamin B12) 1,000 mcg PO DAILY@1200 [facility] Digoxin (Lanoxin) 250 mcg PO DAILY [facility] Docusate Sodium (Colace) 100 mg PO BID@1200,2200 [facility] Last Admin: 05/15/18 22:02 Dose: 100 mg Duloxetine HCl (Cymbalta) 60 mg PO 1600 [facility] Last Admin: 05/15/18 17:58 Dose: 60 mg Fenofibrate (Tricor) 145 mg PO LUNCH [facility] Folic Acid (Folic Acid) 1 mg PO DAILY@1200 [facility] Furosemide (Lasix) 20 mg PO QODAY [facility] Furosemide (Lasix) 40 mg PO QODAY [facility] Gabapentin (Neurontin) 1,200 mg PO QHS [facility] Last Admin: 05/15/18 22:02 Dose: 1,200 mg Vancomycin IV Pharmacy to Dose (1 ea/ Sodium Chloride) 500 mls @ 250 mls/hr IV X1 PRN; Protocol PRN Reason: Rx to Dose Vancomycin HCl 1,750 mg/ (Sodium Chloride) 535 mls @ 250 mls/hr IV Q12H [facility] Last Admin: 05/15/18 22:52 Dose: 250 mls/hr Losartan Potassium (Cozaar) 25 mg PO DAILY [facility] Magnesium Hydroxide (Milk Of Magnesia) 30 ml PO DAILY PRN PRN PRN Reason: Constipation Metoprolol Tartrate (Lopressor (Beta Taisha)) 25 mg PO QHS [facility] Last Admin: 05/15/18 22:02 Dose: 25 mg Multivitamins/Minerals (Multivitamin With Minerals) 1 tablet PO DAILY@0800 [facility] Mupirocin (Bactroban) 1 applic NASAL BID [facility]; Protocol Stop: 05/20/18 10:01 Last Admin: 05/15/18 22:03 Dose: 1 applicatio Ondansetron HCl (Zofran) 4 mg IV Q8H PRN PRN PRN Reason: NAUSEA Oxycodone HCl (Oxyir) 5 mg PO Q4H PRN PRN PRN Reason: MOD-SEVERE PAIN (4-10/10) Pantoprazole Sodium (Protonix) 20 mg PO DAILY@1700 [facility] Last Admin: 05/15/18 17:58 Dose: 20 mg Potassium Chloride (K-Dur) 20 meq PO DAILY@0800 [facility] Pramipexole Dihydrochloride (Mirapex) 0.75 mg PO TID [facility] Last Admin: 05/16/18 05:57 Dose: 0.75 mg Pravastatin Sodium (Pravachol) 40 mg PO QHS [facility] Last Admin: 05/15/18 22:02 Dose: 40 mg Rivaroxaban (Xarelto) 10 mg PO DAILY [facility] Senna (Senokot) 1 tablet PO DINNER [facility] Last Admin: 05/15/18 17:58 Dose: 1 tablet Sodium Chloride () 5 - 15 ml IV UD PRN PRN Reason: SALINE FLUSH Last Admin: 05/15/18 22:52 Dose: 10 ml Medical Necessity - Tobacco Use Smoking Status: Former smoker Tobacco Use: Non-smoker Assessment/Plan All Active Problems (Last Reviewed 05/06/18 @ 13:33 by Dagmar Strickland) Educational circumstance (Acute) Antineoplastic chemotherapy induced anemia (Resolved) Constipation (Acute) Educational circumstance (Acute) Left leg cellulitis (Acute) Non-pressure chronic ulcer of other part of left foot with fat layer exposed (Acute) GI bleed (Acute) Left VATS procedure with wedge resection KATIE (Acute) port placement (Acute) Chemotherapy induced neutropenia (Resolved) Anemia (Acute) COPD (chronic obstructive pulmonary disease) (Acute) Dyspnea (Acute) Diabetes (Acute) Neuropathy (Acute) Arthritis (Acute) Obesity (Acute) Alcohol dependence (Acute) GERD (gastroesophageal reflux disease) (Acute) DJD (degenerative joint disease) (Acute) Vascular disease (Acute) Renal disease (Acute) Macular degeneration (Acute) Arrhythmia (Acute) Migraine (Acute) Memory loss (Acute) Hypotestosteronism (Acute) Essential tremor (Acute) Parkinsons (Acute) Dementia (Acute) HEBER (obstructive sleep apnea) (Acute) Benign essential hypertension (Acute) Hammertoes of both feet (Acute) S/P CABG x 2 (Acute) 1. LLE cellulitis from the left great toe wound - previously worked-up for osteo in march and was negative - will continue with vanc/zosyn for today, may be able to de-escalate to vanc and keflex tomorrow - H/o MRSA - c/s to wound care 2. Dark stools/GERD/H/o GI bleed/Gastric avm - H/H stable - c/w PPI - check hemoccult - Asymptomatic 3. COPD - stable - c/w inhalers 4. A-fib/HTN/HLD/CAD s/p stent and CABG/PAD s/p common iliac stent/Chronic sCHF - Managed by cardiology, on xarelto - c/w BB, ASA, losartan and pravastatin - C/w lasix 5. Depression - stable - c/w cymbalta DVT: Xarelto Code Visit Inpatient E&M: 49123 Subs Hosp L2
--- NOTE | 2018-05-16 09:39 | PN_ITS ---
Subjective: Doing well, no complaints, frustrated with how often he is having cellulitis in the last few months. Wound in his left leg is healing ok Vitals/I&O's: Vital Signs Temp Pulse Resp BP Pulse Ox 98 F 74 18 143/72 H 92 05/16/18 07:49 05/16/18 07:49 05/16/18 07:49 05/16/18 07:49 05/16/18 07:49 Oxygen Flow Rate (L/min) 2 Oxygen Delivery Method Room Air Weight: 275 lb 9.245 oz Body Mass Index (BMI) 39.5 Intake and Output for Last 24 Hours 05/14/18 05/15/18 05/16/18 23:59 23:59 23:59 Intake Total 850 / 850 1152 / 1152 Output Total 500 / 500 Balance 850 / 850 652 / 652 General: Alert, Oriented x3, Cooperative HEENT: Atraumatic, EOMI, Normocephalic Oral: Moist Mucosa Neck: Supple, No JVD Lungs: Clear to auscultation, Normal air movement, No rhonchi, No wheeze, No rales Cardiovascular: Regular rate, Regular Rhythm, Normal S1, Normal S2, No murmurs Abdomen: Soft, Non Tender, Non-Distended, No Hepato-splenomegaly Extremities: No edema, Capillary Refill Less than 3 Seconds Skin: - - erythema on the anterior tibia with a superficial wound to the left great toe Neurological: Neuro grossly intact, Sensory exam intact to light touch and pain Psych/Mental Status: Normal Affect, Appropriate Laboratory Results 05/15/18 11:30: WBC 10.0, RBC 4.08 L, Hgb 10.3 L, Hct 34.0 L, MCV 83.3, MCH 25.2 L, MCHC 30.3 L, RDW 17.7 H, RDW Differential 54.1 H, Plt Count 204, MPV 9.3, Immature Gran % (Auto) 0.100, Neut % (Auto) 83.8 H, Lymph % (Auto) 6.6 L, [place] % (Auto) 8.6, Eos % (Auto) 0.7, Baso % (Auto) 0.2, Absolute Neuts (auto) 8.4 H, Absolute Lymphs (auto) 0.66 L, Total Counted Not Reportable 05/15/18 11:30: Sodium 140, Potassium 3.6, Chloride 104, Carbon Dioxide 29.0, Anion Gap 7, BUN 11, Creatinine 0.96, Estim Creat Clear Calc 71.82, Est GFR (MDRD) Af Amer 98, Est GFR (MDRD) Non-Af 81, BUN/Creatinine Ratio 11.4, Glucose 134 H, Calcium 8.1 L 05/15/18 15:45: S.aureus Protein A PCR POSITIVE H, MRSA (PCR) POSITIVE H 05/16/18 07:20: WBC 7.9, RBC 3.76 L, Hgb 9.6 L, Hct 32.1 L, MCV 85.4, MCH 25.5 L , MCHC 29.9 L, RDW 18.0 H, RDW Differential 54.5 H, Plt Count 208, MPV 10.4, Immature Gran % (Auto) 0.400, Neut % (Auto) 69.1, Lymph % (Auto) 13.2 L, [place] % (Auto) 12.9 H, Eos % (Auto) 3.9, Baso % (Auto) 0.5, Absolute Neuts (auto) 5.4, Absolute Lymphs (auto) 1.04, Total Counted Not Reportable 05/16/18 07:20: Sodium 142, Potassium 3.7, Chloride 105, Carbon Dioxide 29.0, Anion Gap 8, BUN 9, Creatinine 0.91, Estim Creat Clear Calc 75.76, Est GFR (MDRD) Af Amer 105, Est GFR (MDRD) Non-Af 87, BUN/Creatinine Ratio 9.9 L, Glucose 109 H, Calcium 8.1 L Current Medications Acetaminophen (Tylenol) 650 mg PO Q6H PRN PRN PRN Reason: Mild Pain (1-3)/Temp > 100.7 F Albuterol/Ipratropium (Duoneb) 3 ml INHALATION Q6HWA.RT [facility] Last Admin: 05/16/18 06:43 Dose: 3 ml Aspirin (Ecotrin) 81 mg PO DAILY@0800 [facility] Budesonide (Pulmicort Aerosol) 0.25 mg INHALATION TID.RT [facility] Last Admin: 05/16/18 06:43 Dose: 0.25 mg Chlorhexidine Gluconate () 1 each TOPICAL DAILY [facility] Stop: 05/21/18 10:01 Cyanocobalamin (Vitamin B12) 1,000 mcg PO DAILY@1200 [facility] Digoxin (Lanoxin) 250 mcg PO DAILY [facility] Docusate Sodium (Colace) 100 mg PO BID@1200,2200 [facility] Last Admin: 05/15/18 22:02 Dose: 100 mg Duloxetine HCl (Cymbalta) 60 mg PO 1600 [facility] Last Admin: 05/15/18 17:58 Dose: 60 mg Fenofibrate (Tricor) 145 mg PO LUNCH [facility] Folic Acid (Folic Acid) 1 mg PO DAILY@1200 [facility] Furosemide (Lasix) 20 mg PO QODAY [facility] Furosemide (Lasix) 40 mg PO QODAY [facility] Gabapentin (Neurontin) 1,200 mg PO QHS [facility] Last Admin: 05/15/18 22:02 Dose: 1,200 mg Vancomycin IV Pharmacy to Dose (1 ea/ Sodium Chloride) 500 mls @ 250 mls/hr IV X1 PRN; Protocol PRN Reason: Rx to Dose Vancomycin HCl 1,750 mg/ (Sodium Chloride) 535 mls @ 250 mls/hr IV Q12H [facility] Last Admin: 05/15/18 22:52 Dose: 250 mls/hr Losartan Potassium (Cozaar) 25 mg PO DAILY [facility] Magnesium Hydroxide (Milk Of Magnesia) 30 ml PO DAILY PRN PRN PRN Reason: Constipation Metoprolol Tartrate (Lopressor (Beta Taisha)) 25 mg PO QHS [facility] Last Admin: 05/15/18 22:02 Dose: 25 mg Multivitamins/Minerals (Multivitamin With Minerals) 1 tablet PO DAILY@0800 [facility] Mupirocin (Bactroban) 1 applic NASAL BID [facility]; Protocol Stop: 05/20/18 10:01 Last Admin: 05/15/18 22:03 Dose: 1 applicatio Ondansetron HCl (Zofran) 4 mg IV Q8H PRN PRN PRN Reason: NAUSEA Oxycodone HCl (Oxyir) 5 mg PO Q4H PRN PRN PRN Reason: MOD-SEVERE PAIN (4-10/10) Pantoprazole Sodium (Protonix) 20 mg PO DAILY@1700 [facility] Last Admin: 05/15/18 17:58 Dose: 20 mg Potassium Chloride (K-Dur) 20 meq PO DAILY@0800 [facility] Pramipexole Dihydrochloride (Mirapex) 0.75 mg PO TID [facility] Last Admin: 05/16/18 05:57 Dose: 0.75 mg Pravastatin Sodium (Pravachol) 40 mg PO QHS [facility] Last Admin: 05/15/18 22:02 Dose: 40 mg Rivaroxaban (Xarelto) 10 mg PO DAILY [facility] Senna (Senokot) 1 tablet PO DINNER [facility] Last Admin: 05/15/18 17:58 Dose: 1 tablet Sodium Chloride () 5 - 15 ml IV UD PRN PRN Reason: SALINE FLUSH Last Admin: 05/15/18 22:52 Dose: 10 ml Medical Necessity - Tobacco Use Smoking Status: Former smoker Tobacco Use: Non-smoker Assessment/Plan All Active Problems (Last Reviewed 05/06/18 @ 13:33 by Dagmar Strickland) Educational circumstance (Acute) Antineoplastic chemotherapy induced anemia (Resolved) Constipation (Acute) Educational circumstance (Acute) Left leg cellulitis (Acute) Non-pressure chronic ulcer of other part of left foot with fat layer exposed (Acute) GI bleed (Acute) Left VATS procedure with wedge resection KATIE (Acute) port placement (Acute) Chemotherapy induced neutropenia (Resolved) Anemia (Acute) COPD (chronic obstructive pulmonary disease) (Acute) Dyspnea (Acute) Diabetes (Acute) Neuropathy (Acute) Arthritis (Acute) Obesity (Acute) Alcohol dependence (Acute) GERD (gastroesophageal reflux disease) (Acute) DJD (degenerative joint disease) (Acute) Vascular disease (Acute) Renal disease (Acute) Macular degeneration (Acute) Arrhythmia (Acute) Migraine (Acute) Memory loss (Acute) Hypotestosteronism (Acute) Essential tremor (Acute) Parkinsons (Acute) Dementia (Acute) HEBER (obstructive sleep apnea) (Acute) Benign essential hypertension (Acute) Hammertoes of both feet (Acute) S/P CABG x 2 (Acute) 1. LLE cellulitis from the left great toe wound - previously worked-up for osteo in march and was negative - will continue with vanc/zosyn for today, may be able to de-escalate to vanc and keflex tomorrow - H/o MRSA - c/s to wound care 2. Dark stools/GERD/H/o GI bleed/Gastric avm - H/H stable - c/w PPI - check hemoccult - Asymptomatic 3. COPD - stable - c/w inhalers 4. A-fib/HTN/HLD/CAD s/p stent and CABG/PAD s/p common iliac stent/Chronic sCHF - Managed by cardiology, on xarelto - c/w BB, ASA, losartan and pravastatin - C/w lasix 5. Depression - stable - c/w cymbalta DVT: Xarelto Code Visit Inpatient E&M: 91198 Subs Hosp L2
--- NOTE | 2018-05-16 11:00 | CM.UR ---
See alternative financing specialist. Met face to face with patient, introduced myself and explained my role. He is a vet and goes to [facility] and states he is 100% service connected. Did have Nilda Gonzalez NP but she had just left clinic. Seeing new provider next week. As long as shoaib is discharged in time--he will keep that appointment. Admitted for recurrent LLE cellulitis. Currently on IV antibiotics. Vet lives with , who is beginning to need assistance herself. 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 States sets up his medications. Unable to prepare his own meals. hx of MRSA. States he stopped performing his home exercises due to ulcer on left great toe. Following with wound care with [facility] Dr. Chatman. Requesting [facility] via [facility] for PT to assist in getting stronger again. referral sent under his MCR. Advance directives no on file here but states the [facility]. also states that he wants to see if [facility] will assist him in getting a generator. States power goes out a lot in his area. He does have portable o2 but states he can't see to get to them, hook them up, etc. Explained will alert the [facility] to his request. Denies any other needs at this time. CM will remain available should any needs arise. Lorie Grant RN, [facility].
[2018-05-16] MEDS: Mupirocin Ointment 22gm Tube 1 APPLIC NASAL ×2 (11:05→20:37)
[2018-05-16] MEDS: CHLORHEXIDINE GLUC 2% CLOTH 1 EACH TOWELETTE TOPICAL (11:05)
[2018-05-16] MEDS: Aspirin E.C. 81 MG Tablet PO (11:18)
[2018-05-16] MEDS: Rivaroxaban 10 MG Tablet PO (11:18)
[2018-05-16] MEDS: Docusate Sodium 100 MG Capsule PO ×2 (11:18→20:37)
[2018-05-16] MEDS: Folic Acid 1 MG Tablet PO (11:18)
[2018-05-16] MEDS: Losartan Potassium 25 MG Tablet PO (11:18)
[2018-05-16] MEDS: 0.9% NaCl Peripheral Flush Adult/Peds IV ×2 (11:19→12:00)
[2018-05-16] MEDS: Multivitamins,Ther W-Minerals Tablet 1 TABLET PO (14:10)
[2018-05-16] MEDS: Digoxin 250 MCG Tablet PO (14:11)
[2018-05-16] MEDS: Furosemide 20 MG Tablet PO (14:12)
[2018-05-16] MEDS: Cyanocobalamin 500 MCG Tablet 1000 MCG PO (14:12)
[2018-05-16] MEDS: Fenofibrate 145 MG Tablet PO (14:12)
[2018-05-16] MEDS: Senna Tablet 1 TABLET PO (17:54)
[2018-05-16] MEDS: Pantoprazole Sodium 20 MG Tablet PO (17:54)
[2018-05-16] MEDS: DULoxetine Hcl 60 MG Capsule PO (17:54)
[2018-05-16] MEDS: Metoprolol Tartrate 25 MG Tablet PO (20:37)
[2018-05-16] MEDS: Gabapentin 600 MG Tablet 1200 MG PO (20:37)
[2018-05-16] MEDS: Pravastatin 40 MG Tablet PO (20:37)
[2018-05-17 02:40] VITALS: BP 168/88; PULSE 74; RESP 18; TEMP 37.1; O2SAT 95
--- NOTE | 2018-05-17 06:32 | PN_ITS ---
Subjective: No complaints, pain is controlled. Redness resolved Vitals/I&O's: Vital Signs Temp Pulse Resp BP Pulse Ox 98.8 F 74 18 168/88 H 95 05/17/18 02:40 05/17/18 02:40 05/17/18 02:40 05/17/18 02:40 05/17/18 02:40 Oxygen Flow Rate (L/min) 2 Oxygen Delivery Method Nasal Cannula Weight: 275 lb 9.245 oz Body Mass Index (BMI) 39.5 Intake and Output for Last 24 Hours 05/15/18 05/16/18 05/17/18 23:59 23:59 23:59 Intake Total 850 / 850 3702 / 3702 Output Total 1230 / 1230 Balance 850 / 850 2472 / 2472 General: Alert, Oriented x3, Cooperative HEENT: Atraumatic, EOMI, Normocephalic Oral: Moist Mucosa Neck: Supple, No JVD Lungs: Clear to auscultation, Normal air movement, No rhonchi, No wheeze, No rales Cardiovascular: Regular rate, Regular Rhythm, Normal S1, Normal S2, No murmurs Abdomen: Soft, Non Tender, Non-Distended, No Hepato-splenomegaly Extremities: No edema, Capillary Refill Less than 3 Seconds Skin: - - erythema on the anterior tibia with a superficial wound to the left great toe Neurological: Neuro grossly intact, Sensory exam intact to light touch and pain Psych/Mental Status: Normal Affect, Appropriate Laboratory Results 05/16/18 07:20: WBC 7.9, RBC 3.76 L, Hgb 9.6 L, Hct 32.1 L, MCV 85.4, MCH 25.5 L , MCHC 29.9 L, RDW 18.0 H, RDW Differential 54.5 H, Plt Count 208, MPV 10.4, Immature Gran % (Auto) 0.400, Neut % (Auto) 69.1, Lymph % (Auto) 13.2 L, [place] % (Auto) 12.9 H, Eos % (Auto) 3.9, Baso % (Auto) 0.5, Absolute Neuts (auto) 5.4, Absolute Lymphs (auto) 1.04, Total Counted Not Reportable 05/16/18 07:20: Sodium 142, Potassium 3.7, Chloride 105, Carbon Dioxide 29.0, Anion Gap 8, BUN 9, Creatinine 0.91, Estim Creat Clear Calc 75.76, Est GFR (MDRD) Af Amer 105, Est GFR (MDRD) Non-Af 87, BUN/Creatinine Ratio 9.9 L, Glucose 109 H, Calcium 8.1 L Current Medications Acetaminophen (Tylenol) 650 mg PO Q6H PRN PRN PRN Reason: Mild Pain (1-3)/Temp > 100.7 F Albuterol/Ipratropium (Duoneb) 3 ml INHALATION Q6HWA.RT [facility] Last Admin: 05/16/18 19:30 Dose: 3 ml Aspirin (Ecotrin) 81 mg PO DAILY@0800 [facility] Last Admin: 05/16/18 11:18 Dose: 81 mg Budesonide (Pulmicort Aerosol) 0.25 mg INHALATION TID.RT [facility] Last Admin: 05/16/18 19:30 Dose: 0.25 mg Chlorhexidine Gluconate () 1 each TOPICAL DAILY [facility] Stop: 05/21/18 10:01 Last Admin: 05/16/18 11:05 Dose: 1 each Cyanocobalamin (Vitamin B12) 1,000 mcg PO DAILY@1200 [facility] Last Admin: 05/16/18 14:12 Dose: 1,000 mcg Digoxin (Lanoxin) 250 mcg PO DAILY [facility] Last Admin: 05/16/18 14:11 Dose: 250 mcg Docusate Sodium (Colace) 100 mg PO BID@1200,2200 [facility] Last Admin: 05/16/18 20:37 Dose: 100 mg Duloxetine HCl (Cymbalta) 60 mg PO 1600 [facility] Last Admin: 05/16/18 17:54 Dose: 60 mg Fenofibrate (Tricor) 145 mg PO LUNCH [facility] Last Admin: 05/16/18 14:12 Dose: 145 mg Folic Acid (Folic Acid) 1 mg PO DAILY@1200 [facility] Last Admin: 05/16/18 11:18 Dose: 1 mg Furosemide (Lasix) 20 mg PO QODAY [facility] Last Admin: 05/16/18 14:12 Dose: 20 mg Furosemide (Lasix) 40 mg PO QODAY [facility] Gabapentin (Neurontin) 1,200 mg PO QHS [facility] Last Admin: 05/16/18 20:37 Dose: 1,200 mg Vancomycin IV Pharmacy to Dose (1 ea/ Sodium Chloride) 500 mls @ 250 mls/hr IV X1 PRN; Protocol PRN Reason: Rx to Dose Vancomycin HCl 1,750 mg/ (Sodium Chloride) 535 mls @ 250 mls/hr IV Q12H [facility] Last Admin: 05/16/18 22:52 Dose: 250 mls/hr Losartan Potassium (Cozaar) 25 mg PO DAILY [facility] Last Admin: 05/16/18 11:18 Dose: 25 mg Magnesium Hydroxide (Milk Of Magnesia) 30 ml PO DAILY PRN PRN PRN Reason: Constipation Metoprolol Tartrate (Lopressor (Beta Taisha)) 25 mg PO QHS [facility] Last Admin: 05/16/18 20:37 Dose: 25 mg Multivitamins/Minerals (Multivitamin With Minerals) 1 tablet PO DAILY@0800 [facility] Last Admin: 05/16/18 14:10 Dose: 1 tablet Mupirocin (Bactroban) 1 applic NASAL BID [facility]; Protocol Stop: 05/20/18 10:01 Last Admin: 05/16/18 20:37 Dose: 1 applicatio Ondansetron HCl (Zofran) 4 mg IV Q8H PRN PRN PRN Reason: NAUSEA Oxycodone HCl (Oxyir) 5 mg PO Q4H PRN PRN PRN Reason: MOD-SEVERE PAIN (4-10/10) Pantoprazole Sodium (Protonix) 20 mg PO DAILY@1700 [facility] Last Admin: 05/16/18 17:54 Dose: 20 mg Potassium Chloride (K-Dur) 20 meq PO DAILY@0800 [facility] Last Admin: 05/16/18 11:18 Dose: 20 meq Pramipexole Dihydrochloride (Mirapex) 0.75 mg PO TID [facility] Last Admin: 05/16/18 20:37 Dose: 0.75 mg Pravastatin Sodium (Pravachol) 40 mg PO QHS [facility] Last Admin: 05/16/18 20:37 Dose: 40 mg Rivaroxaban (Xarelto) 10 mg PO DAILY [facility] Last Admin: 05/16/18 11:18 Dose: 10 mg Senna (Senokot) 1 tablet PO DINNER [facility] Last Admin: 05/16/18 17:54 Dose: 1 tablet Sodium Chloride () 5 - 15 ml IV UD PRN PRN Reason: SALINE FLUSH Last Admin: 05/16/18 12:00 Dose: 10 ml Medical Necessity - Tobacco Use Smoking Status: Former smoker Tobacco Use: Non-smoker Assessment/Plan All Active Problems (Last Reviewed 05/06/18 @ 13:33 by Dagmar Strickland) Educational circumstance (Acute) Antineoplastic chemotherapy induced anemia (Resolved) Constipation (Acute) Educational circumstance (Acute) Left leg cellulitis (Acute) Non-pressure chronic ulcer of other part of left foot with fat layer exposed (Acute) GI bleed (Acute) Left VATS procedure with wedge resection KATIE (Acute) port placement (Acute) Chemotherapy induced neutropenia (Resolved) Anemia (Acute) COPD (chronic obstructive pulmonary disease) (Acute) Dyspnea (Acute) Diabetes (Acute) Neuropathy (Acute) Arthritis (Acute) Obesity (Acute) Alcohol dependence (Acute) GERD (gastroesophageal reflux disease) (Acute) DJD (degenerative joint disease) (Acute) Vascular disease (Acute) Renal disease (Acute) Macular degeneration (Acute) Arrhythmia (Acute) Migraine (Acute) Memory loss (Acute) Hypotestosteronism (Acute) Essential tremor (Acute) Parkinsons (Acute) Dementia (Acute) HEBER (obstructive sleep apnea) (Acute) Benign essential hypertension (Acute) Hammertoes of both feet (Acute) S/P CABG x 2 (Acute) 1. LLE cellulitis from the left great toe wound - previously worked-up for osteo in march and was negative - DC home today per his request, he is afebrile and without leukocytosis - His cellulitis was more strep than MRSA in appearance, also he was treated for the MRSA in his toe wound a month ago - I will DC home with close outpatient follow-up with his PCP. I will only send him home on Keflex QID. If his cellulitis returns then his outpatient PCP can address with Clinda/Doxy/or bactrim - H/o MRSA - c/s to wound care 2. Dark stools/GERD/H/o GI bleed/Gastric avm - H/H stable - c/w PPI - check hemoccult - Asymptomatic - he will follow-up as an outpatient 3. COPD - stable - c/w inhalers 4. A-fib/HTN/HLD/CAD s/p stent and CABG/PAD s/p common iliac stent/Chronic sCHF - Managed by cardiology, on xarelto - c/w BB, ASA, losartan and pravastatin - C/w lasix 5. Depression - stable - c/w cymbalta DVT: Xarelto Code Visit Inpatient E&M: 51082 Subs Hosp L2
[2018-05-17] MEDS: Pramipexole Di-HCl 0.25 MG Tablet 0.75 MG PO (06:37)
[2018-05-17 07:05] VITALS: PULSE 85; RESP 16; O2SAT 88
[2018-05-17] MEDS: Ipratropium/Albuterol Sulfate 3 ML AMPUL.NEB INHALATION (07:12)
[2018-05-17] MEDS: Budesonide Respules 0.5 MG/2 ML AMPUL.NEB. 0.25 MG INHALATION (07:13)
[2018-05-17 07:16] VITALS: O2SAT 95
--- NOTE | 2018-05-17 08:02 | PCM.DC ---
You will use the following diet at home:: Cardiac Your food should be the consistency of: Regular Your liquids should be the consistency of: Regular/Thin Discharge Activity: No Restrictions Call your doctor if you observe: Fever of 101 or Higher, Coldness, Increased Pain, Numbness or Tingling, Shortness of breath, Dizziness Allergies/Adverse Reactions: Allergies No Known Allergies Allergy (Verified 05/06/18 13:33) Medications to take at Discharge Fenofibrate [Tricor] 145 mg PO LUNCH 05/06/13 Folic Acid 1 mg PO DAILY@1200 05/06/13 Tiotropium [place] [Spiriva 18 MCG] 1 puff INHALATION DAILY 05/06/13 Duloxetine HCl 60 mg PO QHS 12/04/16 Pramipexole Di-HCl [Mirapex] 0.75 mg PO TID 12/04/16 aspirin 81 mg tablet,delayed release 81 mg PO DAILY 10/06/17 cyanocobalamin (vit B-12) 1,000 mcg tablet 1,000 mcg PO DAILY@1200 10/20/17 docusate sodium 100 mg capsule 100 mg PO BID cap 10/20/17 gabapentin 600 mg tablet 1,200 mg PO QHS tab 10/20/17 Budesonide [Pulmicort] 0.25 mg IH TID 10/23/17 Formoterol Fumarate [Perforomist] 20 mcg INHALATION BID 12/22/17 Multivit-Min/Iron Fum/Folic AC [Tkyua-Oiivjpe-Komwwukw Tablet] 1 ea PO BID 12/22/17 Omeprazole 20 mg PO DAILY@1700 12/22/17 Digoxin 0.25 mg PO DAILY 01/27/18 furosemide 20 mg tablet 20 mg PO QODAY 02/25/18 furosemide 40 mg tablet 40 mg PO QODAY tab 02/25/18 rivaroxaban 10 mg tablet 10 mg PO DAILY 02/25/18 losartan 25 mg tablet 25 mg PO DAILY 03/02/18 Metoprolol Tartrate 25 mg PO QHS 03/19/18 Potassium Chloride [K-Tab ER] 20 meq PO DAILY 03/19/18 Pravastatin Sodium 40 mg PO QHS 03/19/18 Senna [Senokot] 1 tablet PO DINNER 03/19/18 Cephalexin [Keflex] 500 mg PO Q6 #40 cap 05/17/18 The following prescriptions were given: Cephalexin [Keflex] 500 mg PO Q6 #40 cap Primary Care Physician: Fany Hobson DO [Primary Care Provider] - Please follow up with your Primary Care Physician in: [place] 2 days Test Results: Test results from this visit will be discussed in further detail at your follow-up appointment, if applicable.
[2018-05-17 08:05] VITALS: BP 149/91; PULSE 88; RESP 18; TEMP 36.7; O2SAT 95
[2018-05-17] MEDS: Aspirin E.C. 81 MG Tablet PO (08:08)
[2018-05-17] MEDS: Multivitamins,Ther W-Minerals Tablet 1 TABLET PO (08:09)
[2018-05-17] MEDS: Rivaroxaban 10 MG Tablet PO (09:53)
[2018-05-17] MEDS: Digoxin 250 MCG Tablet PO (09:54)
[2018-05-17] MEDS: Furosemide 40 MG Tablet PO (09:54)
[2018-05-17] MEDS: Mupirocin Ointment 22gm Tube 1 APPLIC NASAL (09:54)
[2018-05-17] MEDS: Losartan Potassium 25 MG Tablet PO (09:54)
--- NOTE | 2018-05-17 11:46 | PCM.DC.SUM ---
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 Garcia [facility]; [facility] 05/16/[address] Naylor @ [facility] History of coronary artery stent placement (Chronic 12/23/06) [id number] anastomosis-LAD w/ Taxus 2.75 x 8 mm and POBA-PDA 12/23/2006 History of cardioversion (Chronic 12/2016) Secondary pulmonary arterial hypertension (Chronic) Atherosclerosis of coronary artery of [place] heart without angina pectoris (Chronic) CABG x 2 HERRERA-LAD, SVG-OM 02/14/2006 [id number] anastomosis-LAD w/ Taxus 2.75 x 8 mm and POBA-PDA 12/23/2006 H/O coronary artery bypass surgery (Chronic 02/14/06) CABG x 2 HERRERA-LAD, SVG-OM 02/14/[address] Fei Castillo, [facility] 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 (Chronic) Hospital Course and Treatment Imaging Results: None Consultations 05/15/18 14:49 Consult: Onc/Wound/pole framer Routine Comment: Operations: None Procedures: None Summary of Care Provided: Per HPI: The patient is a 72 year old M a history of cellulitis presents with a 1 day history of left lower extremity redness. For the previous few days, patient was having some general and last night noted that his left leg was warm and red. Did not resolve and so presented to the emergency room. Patient was diagnosed with cellulitis and started on vancomycin. This is similar to the patient's prior episodes of cellulitis which this is now his third episode of left lower extremity cellulitis. Patient does have an ulcer on his left great toe that is healing up and is following up with wound care. There is been no other new wounds that he is aware of. Patient states that he feels chilled but no overt fevers. Hospital Course: 1. LLE cellulitis from the left great toe wound - He presented to the hospital because of a new onset of left lower extremity redness. He was not short of breath and was afebrile at home. Attempted to call his PCP but could not get through because she does not work on Friday and therefore presented to the ER. He has remained afebrile and has not had a leukocytosis. He has completed almost a full day of vancomycin and Zosyn, and on the day of discharge his cellulitis was completely resolved. On exam his cellulitis was nonpurulent without fluctuance therefore he was discharged on Keflex 4 times daily for 10 days. I did discuss with him different possibilities including staying for 1 more night to try him on oral Keflex while he was here to make sure that he did not have any recurrence, he felt that if he could do Keflex here or Keflex at home he would rather be home and did say that he would follow-up with his PCP as soon as possible and if he did have a recurrence of redness or develops a fever or chills, he would return to the hospital. 2. Dark stools/GERD/H/o GI bleed/Gastric avm - On admission to the hospital his H&H has been stable. He was denying any abdominal pain, lightheadedness, dizziness, and he was continued on his PPI. He will also follow-up as an outpatient for this issue. 3. His other medical diagnoses were evaluated and his home medications were continued were appropriate. - Physical Exam Vital Signs Temp Pulse Resp BP Pulse Ox 98.1 F 88 18 149/91 H 95 05/17/18 08:05 05/17/18 08:05 05/17/18 08:05 05/17/18 08:05 05/17/18 08:05 Oxygen Flow Rate (L/min) 2 Oxygen Delivery Method Nasal Cannula Weight: 275 lb 9.245 oz Body Mass Index (BMI) 39.5 Intake and Output for Last 24 Hours 05/15/18 05/16/18 05/17/18 23:59 23:59 23:59 Intake Total 850 / 850 3702 / 3702 750 / 750 Output Total 1230 / 1230 1750 / 1750 Balance 850 / 850 2472 / 2472 -1000 / -1000 Microbiology Past 72 Hours 05/15/18 12:01 Blood Culture - Preliminary Blood Culture (Wb) - Right Wrist No growth in 48 hours. 05/15/18 11:30 Blood Culture - Preliminary Blood Culture (Wb) - Anticubital Left No growth in 48 hours. Discharge Activity: No Restrictions Call your doctor if you observe: Fever of 101 or Higher, Coldness, Increased Pain, Numbness or Tingling, Shortness of breath, Dizziness Home Medications: Medications to take at Discharge Fenofibrate [Tricor] 145 mg PO LUNCH 05/06/13 Folic Acid 1 mg PO DAILY@1200 05/06/13 Tiotropium [place] [Spiriva 18 MCG] 1 puff INHALATION DAILY 05/06/13 Duloxetine HCl 60 mg PO QHS 12/04/16 Pramipexole Di-HCl [Mirapex] 0.75 mg PO TID 12/04/16 aspirin 81 mg tablet,delayed release 81 mg PO DAILY 10/06/17 cyanocobalamin (vit B-12) 1,000 mcg tablet 1,000 mcg PO DAILY@1200 10/20/17 docusate sodium 100 mg capsule 100 mg PO BID cap 10/20/17 gabapentin 600 mg tablet 1,200 mg PO QHS tab 10/20/17 Budesonide [Pulmicort] 0.25 mg IH TID 10/23/17 Formoterol Fumarate [Perforomist] 20 mcg INHALATION BID 12/22/17 Multivit-Min/Iron Fum/Folic AC [Ryxyw-Tgbritk-Gsvtjiht Tablet] 1 ea PO BID 12/22/17 Omeprazole 20 mg PO DAILY@1700 12/22/17 Digoxin 0.25 mg PO DAILY 01/27/18 furosemide 20 mg tablet 20 mg PO QODAY 02/25/18 furosemide 40 mg tablet 40 mg PO QODAY tab 02/25/18 rivaroxaban 10 mg tablet 10 mg PO DAILY 02/25/18 losartan 25 mg tablet 25 mg PO DAILY 03/02/18 Metoprolol Tartrate 25 mg PO QHS 03/19/18 Potassium Chloride [K-Tab ER] 20 meq PO DAILY 03/19/18 Pravastatin Sodium 40 mg PO QHS 03/19/18 Senna [Senokot] 1 tablet PO DINNER 03/19/18 Cephalexin [Keflex] 500 mg PO Q6 #40 cap 05/17/18 Following Prescrptions Were Given to Patient: Cephalexin [Keflex] 500 mg PO Q6 #40 cap Primary Care Physician: Fany Hobson DO [Primary Care Provider] - Please follow up with your Primary Care Physician in: [place] 2 days Disposition: Home Minutes spent on discharge:: 35 Patient Condition:: Good Medical Necessity - Tobacco Use Smoking Status: Former smoker Tobacco Use: Non-smoker Meaningful Use Info Meaningful Use Diagnoses (Choose all that apply): None applicable Code Visit Inpatient E&M: 28000 Disch Hosp
--- NOTE | 2018-05-17 11:56 | DS.PCM_ITS ---
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 [facility]; [facility] 05/16/[address] Naylor @ [facility] History of coronary artery stent placement (Chronic 12/23/06) [id number] anastomosis-LAD w/ Taxus 2.75 x 8 mm and POBA-PDA 12/23/2006 History of cardioversion (Chronic 12/2016) Secondary pulmonary arterial hypertension (Chronic) Atherosclerosis of coronary artery of [place] heart without angina pectoris (Chronic) CABG x 2 HERRERA-LAD, SVG-OM 02/14/2006 [id number] anastomosis-LAD w/ Taxus 2.75 x 8 mm and POBA-PDA 12/23/2006 H/O coronary artery bypass surgery (Chronic 02/14/06) CABG x 2 HERRERA-LAD, SVG-OM 02/14/[address] 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 For the previous few days, patient was having some general and last night noted that his left leg was warm and red. Did not resolve and so presented to the emergency room. Patient was diagnosed with cellulitis and started on vancomycin. This is similar to the patient's prior episodes of cellulitis which this is now his third episode of left lower extremity cellulitis. Patient does have an ulcer on his left great toe that is healing up and is following up with wound care. There is been no other new wounds that he is aware of. Patient states that he feels chilled but no overt fevers. Hospital Course: 1. LLE cellulitis from the left great toe wound - He presented to the hospital because of a new onset of left lower extremity redness. He was not short of breath and was afebrile at home. Attempted to call his PCP but could not get through because she does not work on Friday and therefore presented to the ER. He has remained afebrile and has not had a leukocytosis. He has completed almost a full day of vancomycin and Zosyn, and on the day of discharge his cellulitis was completely resolved. On exam his cellulitis was nonpurulent without fluctuance therefore he was discharged on Keflex 4 times daily for 10 days. I did discuss with him different possibilities including staying for 1 more night to try him on oral Keflex while he was here to make sure that he did not have any recurrence, he felt that if he could do Keflex here or Keflex at home he would rather be home and did say that he would follow-up with his PCP as soon as possible and if he did have a recurrence of redness or develops a fever or chills, he would return to the hospital. 2. Dark stools/GERD/H/o GI bleed/Gastric avm - On admission to the hospital his H&H has been stable. He was denying any abdominal pain, lightheadedness, dizziness, and he was continued on his PPI. He will also follow-up as an o utpatient for this issue. 3. His other medical diagnoses were evaluated and his home medications were continued were appropriate. - Physical Exam Vital Signs Temp Pulse Resp BP Pulse Ox 98.1 F 88 18 149/91 H 95 05/17/18 08:05 05/17/18 08:05 05/17/18 08:05 05/17/18 08:05 05/17/18 08:05 Oxygen Flow Rate (L/min) 2 Oxygen Delivery Method Nasal Cannula Weight: 275 lb 9.245 oz Body Mass Index (BMI) 39.5 Intake and Output for Last 24 Hours 05/15/18 05/16/18 05/17/18 23:59 23:59 23:59 Intake Total 850 / 850 3702 / 3702 750 / 750 Output Total 1230 / 1230 1750 / 1750 Balance 850 / 850 2472 / 2472 -1000 / -1000 Microbiology Past 72 Hours 05/15/18 12:01 Blood Culture - Preliminary Blood Culture (Wb) - Right Wrist No growth in 48 hours. 05/15/18 11:30 Blood Culture - Preliminary Blood Culture (Wb) - Anticubital Left No growth in 48 hours. Discharge Activity: No Restrictions Call your doctor if you observe: Fever of 101 or Higher, Coldness, Increased Pain, Numbness or Tingling, Shortness of breath, Dizziness Home Medications: Medications to take at Discharge Fenofibrate [Tricor] 145 mg PO LUNCH 05/06/13 Folic Acid 1 mg PO DAILY@1200 05/06/13 Tiotropium [place] [Spiriva 18 MCG] 1 puff INHALATION DAILY 05/06/13 Duloxetine HCl 60 mg PO QHS 12/04/16 Pramipexole Di-HCl [Mirapex] 0.75 mg PO TID 12/04/16 aspirin 81 mg tablet,delayed release 81 mg PO DAILY 10/06/17 cyanocobalamin (vit B-12) 1,000 mcg tablet 1,000 mcg PO DAILY@1200 10/20/17 docusate sodium 100 mg capsule 100 mg PO BID cap 10/20/17 gabapentin 600 mg tablet 1,200 mg PO QHS tab 10/20/17 Budesonide [Pulmicort] 0.25 mg IH TID 10/23/17 Formoterol Fumarate [Perforomist] 20 mcg INHALATION BID 12/22/17 Multivit-Min/Iron Fum/Folic AC [Yyvxx-Tfbmcgg-Dlbyoisd Tablet] 1 ea PO BID Omeprazole 20 mg PO DAILY@1700 12/22/17 Digoxin 0.25 mg PO DAILY 01/27/18 furosemide 20 mg tablet 20 mg PO QODAY 02/25/18 furosemide 40 mg tablet 40 mg PO QODAY tab 02/25/18 rivaroxaban 10 mg tablet 10 mg PO DAILY 02/25/18 losartan 25 mg tablet 25 mg PO DAILY 03/02/18 Metoprolol Tartrate 25 mg PO QHS 03/19/18 Potassium Chloride [K-Tab ER] 20 meq PO DAILY 03/19/18 Pravastatin Sodium 40 mg PO QHS 03/19/18 Senna [Senokot] 1 tablet PO DINNER 03/19/18 Cephalexin [Keflex] 500 mg PO Q6 #40 cap 05/17/18 Following Prescrptions Were Given to Patient: Cephalexin [Keflex] 500 mg PO Q6 #40 cap Primary Care Physician: Fany Hobson DO [Primary Care Provider] - Please follow up with your Primary Care Physician in: [place] 2 days Disposition: Home Minutes spent on discharge:: 35 Patient Condition:: Good Medical Necessity - Tobacco Use Smoking Status: Former smoker Tobacco Use: Non-smoker Meaningful Use Info Meaningful Use Diagnoses (Choose all that apply): None applicable Code Visit Inpatient E&M: 94610 Disch Hosp
--- NOTE | 2018-05-17 19:51 | NURSING ---
This nurse called [facility] and talked with answering service. Aware that pt left today.
--- NOTE | 2018-05-17 19:56 | NURSING ---
Faxed Discharge Summary to Soham ALVARADO.
--- NOTE | 2018-05-18 10:41 | CASEMGMT ---
[place] MART[place] NOTE: Call placed to [facility]/S @ [phone], re: referral. They are not able to accept pt at this time d/t they are full. Perla Lars made aware and will follow up with pt re: [facility]. Eyad PANIAGUAN [place] CM
--- NOTE | 2018-05-18 12:04 | CASEMGMT ---
[place] MARTIN[place] Discharge Follow-up Phone Call: ZEENAT: Meron Strata: 3 Call Date: 05/18/18 Discharge Date: 05/17/18 Time of Call: 1135 Duration: total 14 minutes ? Admitting Diagnosis: LLE cellulitis. This [place] MARTIN[place] contacted pt via telephone. Pt states his is doing well since discharge. Described the bottom of his leg as good and the top to be bad. C/O persistent weakness and feeling a little down mentally about his state of health. Encouragement given. Noted [facility] unable to assume pt's HH care. Relayed this to pt and he did not have a preference for another provider. Pt agreeable to [facility] for PT and nursing home services. Referral called to Hannah with [facility]. She relayed they can accept pt and have the needed information. States she will contact pt to begin PT and nursing home home health services. Call placed back to pt and informed him of the same. Pt states he does have an appointment with [facility] on [facility]/21 (). Pt denies any further needs, questions or concerns at this time. Gladys Sousa RN
--- OUTSIDE RECORDS SUMMARY | 2018-07-10 09:17 | XMS RPT_ITS | Continuity of Care Document ---
:1945 Author Organization [facility] Address [address] [place] [address] Phone Care Team Providers Name Role Phone Gloria Alvarado DO Unavailable Dr. Fredi Rojas Unavailable [facility] DO , Dr. Andres Ceron Unavailable [facility], [facility] Unavailable Dr. Nabeel Khan Unavailable Gloria Alvarado DO A Unavailable Jv Salazar Unavailable [place]ano Germain MD Unavailable Kelly Bella Unavailable Unavailable Natalie Rocha Unavailable Unavailable Unavailable Unavailable Problems Name Dates Details Abnormal C-reactive protein (R79.89, 790.99) Status: Active Acute bronchitis (J20.9, 466.0) Status: Active Adenocarcinoma of lung (C34.90, 162.9) Comments: following with onc Status: Active Anemia, blood loss (D50.0, 280.0) Status: Active Arteriosclerosis of both carotid arteries (I65.23, 433.10) Status: Active Arthritis (M19.90, 716.90) Status: Active Atrial fibrillation (I48.91, 427.31) Status: Active B12 deficiency (E53.8, 266.2) Status: Active Benign essential hypertension (I10, 401.1) Comments: chronic stable-continue present regimen Status: Active BMI 40.0-44.9, adult (Z68.41, V85.41) Status: Active Cellulitis (L03.90, 682.9) Comments: imprving- hospital reports reviewed Status: Active Chronic obstructive pulmonary disease, unspecified COPD type (J44.9, 496) Status: Active Coronary Artery Disease Comments: seeing cardio soon Status: Active Cough (R05, 786.2) Status: Active Degenerative joint disease of cervical spine (M47.812, 721.0) Status: Active Diabetes mellitus type 2, controlled, without complications (E11.9, 250.00) Comments: discussed diet and ex in detail Status: Active DIABETES MELLITUS WITH RENAL MANIFESTATIONS; TYPE II OR UNSPECIFIED TYPE, NOT STATED UNCONTROLLED (250.40) Comments: diet and ex Status: Active Elevated troponin (R74.8, 790.6) Status: Active Encounter for hepatitis C virus screening test for high risk patient (Z11.59, V73.89) Status: Active Encounter for screening for malignant neoplasm of prostate (Renamed from Screening for prostate cancer) (Z12.5, V76.44) Status: Active Epiphora (H04.209, 375.20) Status: Active Epistaxis (R04.0, 784.7) Comments: stable Status: Active Erectile dysfunction (N52.9, 607.84) Status: Active Erectile dysfunction (N52.9, 607.84) Status: Active Essential and other specified forms of tremor (G25.0, 333.1) Status: Active Former smoker (Z87.891, V15.82) Status: Active Gastroesophageal reflux disease without esophagitis (K21.9, 530.81) Comments: no issues Status: Active Generalized weakness (R53.1, 780.79) Comments: may need to do pt Status: Active Hematuria, microscopic (R31.29, 599.72) Status: Active History of colon polyps (Z86.010, V12.72) Comments: had 01/27- recheck 7 years Status: Active hypotestosterone- no wnat tx- followup level Status: Active Left leg cellulitis (L03.116, 682.6) Comments: improved Status: Active Lung nodule (R91.1, 793.11) Comments: benign by 2 year followup Status: Active Macular degeneration (H35.30, 362.50) Comments: getting shots in eyes Status: Active [facility] WELLNESS EXAM Status: Active [facility] WELLNESS PHYSICAL Status: Active Memory loss (R41.3, 780.93) Status: Active Morbid obesity (E66.01, 278.01) Comments: he is doing well with hi sweight loss Status: Active 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, 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) Status: Active Need for prophylactic vaccination and inoculation against influenza (Renamed from Need for immunization against influenza) (Z23, V04.81) Status: Active neuropathy Status: Active Obesity (E66.9, 278.00) Status: Active Obstructive sleep apnea, adult (G47.33, 327.23) Comments: now on cpap Status: Active Orthostasis (I95.1, 458.0) Comments: try lasix 40 mg alternating with 220 mg every other day - watch for swelling short of breath-call with update Status: Active Other and unspecified alcohol dependence, unspecified drinking behavior (F10.20, 303.90) Status: Active Other and unspecified hyperlipidemia (E78.5, 272.4) Comments: pretty good control Status: Active Other elevated white blood cell count (D72.828, 288.69) Status: Active Pancytopenia, acquired (D61.818, 284.19) Comments: due to chemo Status: Active Parkinson's disease dementia (G20, 332.0) Comments: following with bavis Status: Active Peripheral vascular disease, unspecified (I73.9, 443.9) Status: Active Pre-op evaluation (Z01.818, V72.84) Comments: labs reviewed and will verify level of anesthesia Status: Active Rib pain on left side (R07.81, 786.50) Status: Active Screening for prostate cancer (Z12.5, V76.44) Status: Active Ulcer of toe of left foot (L97.529, 707.15) Comments: heeling he is following up next week with inventory control manager Status: Active Unspecified abnormal function study of cardiovascular system (794.30) Status: Active Upper GI bleed (K92.2, 578.9) Status: Active Urinary urgency (R39.15, 788.63) Status: Active Vitamin D deficiency (E55.9, 268.9) Status: Active Medications Name Dates Details ASPIRIN LOW DOSE, 81MG (Oral Tablet) 1 tab qd for 0 days Refills: 0 Ordered:07-May-2009 Hluszti REEL ASSEMBLER, ConnieActive Bactroban Nasal 2 % Nasal Ointment 1 (one) Application qd for 0 days Quantity: 1 {Tube} Refills: 1 Ordered:20-Apr-2018 Joce DRAPER Gloria FABIANmarge DO Gloria A Start : 20-Apr-2018 Active Comments:may use genericapply around nasal opening periumbilical and perirectal daily for 10 days Budesonide 0.25 MG/2ML Inhalation Suspension 2 (two) Milliliter Milliliter bid for 90 days Refills: 3 Ordered:06-Nov-2017 Joce DRAPERJeffyoselin FABIANmarge DO Gloria A Start : 06-Nov-2017 Active Comments:11-06-17 [facility] insurance will only pay for bid Digoxin 250 MCG Oral Tablet qd (250 MCG) Active Comments:Dr. Jose Sarabia 80 MG Oral Tablet 1/2 Tablet daily for 30 days Quantity: 30 {Tablet} Refills: 0 Ordered:06-Oct-2017 Joce DRAPER Gloria FABIANmarge DO Gloria A Start : 06-Oct-2017 Active DOCUSATE SODIUM, 100MG (Oral Capsule) 1 (one) Capsule daily for 30 days Quantity: 30 {Capsule} Refills: 0 Ordered:14-Dec-2014 Joce DRAPER Gloria FABIANmarge DO Gloria A Start : 14-Dec-2014 Active DULoxetine HCl 60 MG Oral Capsule Delayed Release Particles 1 cap daily (60 MG) Active FENOFIBRATE, 145MG (Oral Tablet) 1 tab qd for 0 days Refills: 0 Ordered:19-Aug-2012 Livia Rocha Ferrous Sulfate 325 (65 Fe) MG Oral Tablet Delayed Release 1 (one) Tablet qd for 0 days Quantity: 30 {Tablet} Refills: 5 Ordered:06-Oct-2017 Joce DRAPER Gloria AFast DO, Gloria A Start : 06-Oct-2017 Active FOLIC ACID, 1MG (Oral Tablet) 1 tab qd for 0 days Refills: 0 Ordered:07-May-2009 Hluszti REEL ASSEMBLER, ConnieActive Gabapentin 600 MG Oral Tablet 1 (one) Tablet qd for 30 days Quantity: 30 {Tablet} Refills: 0 Ordered:20-Jan-2017Gloria Jeff bird DOa A Start : 20-Jan-2017 Active ICAPS AREDS FORMULA (Oral Tablet) 1 tab bid Active Keflex 500 MG Oral Capsule uad (500 MG) Active Comments:po q6 #40 cap given at Lasix 40 MG Oral Tablet 1 (one) Tablet qd for 0 days Quantity: 30 {Tablet} Refills: 3 Ordered:06-Oct-2017Jeffa marge Gloria A Start : 06-Oct-2017 Active Metoprolol Tartrate 25 MG Oral Tablet 1 (one) Tablet qd for 0 days Quantity: 30 {Tablet} Refills: 3 Ordered:06-Oct-2017Gloria DO, Debra A Start : 06-Oct-2017 Active NITROSTAT, 0.4MG (Sublingual Tablet Sublingual) 1 tab q 5 minutes up to 3 times (0.4 MG) Active Omeprazole 20 MG Oral Capsule Delayed Release 1 (one) Capsule qd for 0 days Quantity: 30 {Capsule} Refills: 6 Ordered:26-Dec-2017Jeffmarge DRAPER Gloria A Start : 26-Dec-2017 Active OXYGEN (Nasal Gas) (Free Text) 2 liters q hs Active PERFOROMIST, 20MCG/2ML (Inhalation Nebulization Solution) 1 (one) Nebulized Soln Nebulized Soln q 12hrs for 30 days Quantity: 60 {Nebule} Refills: 3 Ordered:29-Mar-2014 Shante Cope LPN Start : 29-Mar-2014 Active Pramipexole Dihydrochloride 0.5 MG Oral Tablet 1 (one) Tablet Tablet tid for 0 days Quantity: 90 {Tablet} Refills: 3 Ordered:19-Feb-2017 Kelly Bella Start : 20-Jan-2017 Active Pravastatin Sodium 40 MG Oral Tablet 1 (one) Tablet Tablet qd for 0 days Quantity: 30 {Tablet} Refills: 3 Ordered:19-Feb-2017 Kelly Bella Start : 20-Jan-2017 Active PULMICORT, 0.25MG/2ML (Inhalation Suspension) 1 (one) Suspension Suspension bid for 30 days Quantity: 60 {Nebule} Refills: 3 Ordered:14-Apr-2014Gloria DO, Debra A Start : 14-Apr-2014 Active Spiriva HandiHaler 18 MCG Inhalation Capsule 1 (one) Capsule q am for 90 days Quantity: 90 {Capsule} Refills: 3 Ordered:23-Feb-2018 Gloria Alvarado DO, DO Gloria Hollins Start : 23-Feb-2018 Active Vitamin B-12 1000 MCG Oral Tablet 1 tab daily (1000 MCG) Active Xarelto 10 MG Oral Tablet 1 (one) Tablet qd for 30 days Quantity: 30 {Tablet} Refills: 0 Ordered:20-Apr-2018 Gloria Alvarado DO, DO Gloria Hollins Start : 20-Apr-2018 Active AUGMENTIN, 875-125MG (Oral Tablet) 1 Tablet bid for 10 days Quantity: 20 {Tablet} Refills: 0 Ordered:19-May-2008 Ashlee Garrett CNP Start : 19-May-2008 End : 02-Jun-2008 Inactive BACTRIM DS, 800-160MG (Oral Tablet) 1 (one) Tablet bid for 7 days Quantity: 14 {Tablet} Refills: 0 Ordered:12-Aug-2014 LARISSA Curtis Start : 09-Aug-2014 End : 12-Aug-2014 Inactive CHERATUSSIN AC, 100-10MG/5ML (Oral Syrup) 1 (one) Teaspoon qhs prn for 0 days Quantity: 6 {Ounce} Refills: 0 Ordered:22-Jul-2014 Kelly Bella Start : 30-Jun-2014 End : 22-Jul-2014 Inactive Comments:six CIPRO, 500MG (Oral Tablet) 1 (one) Tablet bid for 7 days Quantity: 14 {Tablet} Refills: 0 Ordered:12-Aug-2014 Ashlee Garrett CNP Start : 12-Aug-2014 End : 19-Aug-2014 Inactive Fluconazole 150 MG Oral Tablet 1 (one) Tablet Tablet qd for 0 days Quantity: 10 {Tablet} Refills: 0 Ordered:20-Apr-2018 Gloria Alvarado DO, DO Gloria Hollins Start : 30-Dec-2017 End : 20-Apr-2018 Inactive Levaquin 500 MG Oral Tablet 1 (one) Tablet Tablet qd for 0 days Quantity: 10 {Tablet} Refills: 0 Ordered:21-Oct-2017 Kelly Bella Start : 03-Oct-2017 End : 21-Oct-2017 Inactive Lipitor 80 MG Oral Tablet 1 Tablet qd for 0 days Quantity: 30 {Tablet} Refills: 0 Ordered:21-Feb-2017 Vanessa Bellaa Start : 30-Jan-2011 End : 21-Feb-2017 Inactive NIACIN FLUSH FREE, 500MG (Oral Capsule) 1 tab q hs for 0 days Refills: 0 Ordered:25-Mar-2014 WongcaryKelly End : 25-Mar-2014 Inactive NIASPAN, 1000MG (Oral Tablet Extended Release) 1 tab bid for 0 days Refills: 0 Ordered:05-Oct-2010 Natalie Rocha End : 05-Oct-2010 Inactive Nystatin 623975 UNIT/GM External Powder 1 (one) Powder Powder bid for 0 days Quantity: 1 {Bottle} Refills: 2 Ordered:20-Apr-2018 Joce DRAPERGloria DO, Gloria A Start : 30-Dec-2017 End : 20-Apr-2018 Inactive Comments:large POTASSIUM CHLORIDE JAE CR, 20MEQ (Oral Tablet Extended Release) 1 Tablet ER bid for 30 days Quantity: 60 {Tablet_ER} Refills: 0 Ordered:09-Apr-2011 Joce DRAPERGloria DO, Gloria A Start : 30-Jan-2011 End : 01-Mar-2011 Inactive Potassium Chloride ER 10 MEQ Oral Tablet Extended Release 2 (two) Tablet ER qd for 90 days Quantity: 180 {Tablet} Refills: 0 Ordered:06-Oct-2017 Joce DRAPERJeffa AFmarge DO, Gloria A Start : 06-Oct-2017 End : 04-Jan-2018 Inactive Potassium Chloride ER 10 MEQ Oral Tablet Extended Release 2 (two) Tablet ER qd for 0 days Quantity: 360 {Tablet} Refills: 2 Ordered:06-Oct-2017 Joce DRAPERGloria AFmarge DO, Gloria A Start : 06-Oct-2017 End : 04-Jan-2018 Inactive Requip 0.5 MG Oral Tablet 1 tab tid (0.5 MG) Inactive TRIGLIDE, 160MG (Oral Tablet) 1 tab qd (160 MG) Inactive BENZONATATE, 200MG (Oral Capsule) 1 (one) Capsule Capsule tid prn for 0 days Quantity: 30 {Capsule} Refills: 0 Ordered:29-Aug-2014 Shante Cope LPN Start : 30-Jun-2014 End : 29-Aug-2014 Discontinued BIAXIN XL, 500MG (Oral Tablet Extended Release 24 Hour) 2 (two) Tablet ER 24HR qd for 0 days Quantity: 20 {Tablet} Refills: 0 Ordered:09-Aug-2014 Shante Cope LPN Start : 30-Jun-2014 End : 09-Aug-2014 Discontinued Comments:dont take simvistatin while on FLOVENT HFA, 220MCG/ACT (Inhalation Aerosol) 2 (two) Aerosol bid for 0 days Quantity: 1 {Aerosol} Refills: 3 Ordered:22-Mar-2013 Fast DO, Gloria AFast DO, Gloria A Start : 22-Mar-2013 End : 22-Mar-2013 Discontinued Comments:rinse mouth after use HydroCHLOROthiazide 25 MG Oral Tablet 1 tab qd for 0 days Refills: 0 Ordered:14-Jan-2017 Natalie Rocha End : 14-Jan-2017 Discontinued IMDUR, 60MG (Oral Tablet Extended Release 24 Hour) 1 tab qd for 0 days Refills: 0 Ordered:22-Nov-2016 Natalie Rocha End : 22-Nov-2016 Discontinued Comments:This order discontinued per [facility]. LISINOPRIL, 20MG (Oral Tablet) 1 QD for 0 days Refills: 0 Ordered:20-Nov-2006 Gayle Washburn End : 20-Nov-2006 Discontinued LYRICA, 100MG (Oral Capsule) 1 cap qd (100 MG) End : 10-Apr-2012 Discontinued Norvasc 5 MG Oral Tablet 1 (one) Tablet qd for 0 days Refills: 0 Ordered:14-Jan-2017 Natalie Rocha Start : 28-Dec-2007 End : 14-Jan-2017 Discontinued OCUFLOX, 0.3% (Ophthalmic Solution) 1-2 Solution q 6 hours for 7 days for 0 days Refills: 0 Ordered:19-Jul-2010 Mast Marissa BARTHOLOMEW Start : 19-Jul-2010 End : 19-Jul-2010 Discontinued Plavix 75 MG Oral Tablet 1 tab qd for 0 days Refills: 0 Ordered:14-Jan-2017 Natalie Rocha End : 14-Jan-2017 Discontinued POTASSIUM CHLORIDE CR, 10MEQ (Oral Tablet Extended Release) 2 tabs bid (10 MEQ) End : 14-Dec-2014 Discontinued PREDNISONE, 10MG (Oral Tablet) 1 Tablet TAD for 0 days Quantity: 18 {QS} Refills: 0 Ordered:02-Mar-2014 Natalie Rocha Start : 16-Nov-2013 End : 02-Mar-2014 Discontinued Comments:3 x 3 days 2 x 3 days 1 x3 days with food Primidone 50 MG Oral Tablet 1 tab bid for 0 days Refills: 0 Ordered:22-Nov-2016 Natalie Rocha End : 22-Nov-2016 Discontinued SIMVASTATIN, 80MG (Oral Tablet) 1 tab Tablet qd for 90 days Quantity: 3 {Tablet} Refills: 0 Ordered:10-Apr-2012 Fast DO, Gloria AFast DO, Gloria A Start : 10-Apr-2012 End : 10-Apr-2012 Discontinued TESSALON PERLES, 100MG (Oral Capsule) 1 (one) Capsule tid prn for 0 days Quantity: 30 {Capsule} Refills: 0 Ordered:02-Mar-2014 Natalie Rocha Start : 16-Nov-2013 End : 02-Mar-2014 Discontinued Topamax 50 MG Oral Tablet 1 Tablet in morning, 2 tabs in evening for 90 days Refills: 0 Ordered:22-Nov-2016 Natalie Rocha Start : 19-Jul-2010 End : 22-Nov-2016 Discontinued TUDORZA PRESSAIR, 400MCG/ACT (Inhalation Aerosol Powder Breath Activated) 1 Aero Pow Br Act pff bid for 0 days Quantity: 2 {Aero_Pow_Br_Act} Refills: 0 Ordered:22-Mar-2013 Fast DO, Gloria AFast DO, Gloria A Start : 22-Mar-2013 End : 22-Mar-2013 Discontinued VIAGRA, 50MG (Oral Tablet) 1 PRN for 0 days Refills: 0 Ordered:18-Feb-2007 Natalie Rocha End : 18-Feb-2007 Discontinued ZITHROMAX Z-TEJ, 250MG (Oral Tablet) 1 Tablet TAD for 0 days Quantity: 1 {Package} Refills: 0 Ordered:02-Mar-2014 Natalie Rocha Start : 16-Nov-2013 End : 02-Mar-2014 Discontinued Allergies and Adverse Reactions Name Dates Details No Known Allergies (Allergy) Onset: 25-Mar-2014 Status: Active No Known Drug Allergies (Allergy) Status: Active Past Medical History Name Dates Details Abdominal pain (R10.9, 789.00) Comments: kidney stone, now resolved Status: Resolved as of 14-Dec-2014 Abdominal pain, RUQ (R10.11, 789.01) Status: Resolved as of 14-Dec-2014 Abnormal blood chemistry (R79.9, 790.6) Status: Resolved as of 20-Jan-2017 Abnormal urine (R82.90, 791.9) Status: Resolved as of 20-Jan-2017 Acute exacerbation of COPD with asthma (J44.1, 493.22) Status: Resolved as of 20-Jan-2017 Acute pain of right knee (M25.561, 719.46) Status: Inactive as of 03-Jul-2017 Acute sinusitis, unspecified (J01.90, 461.9) Status: Resolved as of 18-Nov-2008 Anemia (D64.9, 285.9) Status: Resolved as of 02-Feb-2010 Backache (M54.9, 724.5) Status: Inactive as of 24-Sep-2009 BMI 40.0-44.9, adult (Z68.41, V85.41) Status: Inactive as of 20-Jan-2017 BMI 45.0-49.9, adult (Z68.42, V85.42) Status: Inactive as of 21-Oct-2017 Bronchitis (J40, 490) Status: Resolved as of 14-Dec-2014 Bronchitis, acute (J20.9, 466.0) Status: Resolved as of 18-Nov-2008 Candidiasis, cutaneous (B37.2, 112.3) Status: Resolved as of 16-Mar-2018 Cellulitis and abscess of leg, except foot (L03.119, 682.6) Status: Resolved as of 18-Nov-2008 claudication Status: Inactive as of 11-Dec-2008 Corns (L84, 700) Status: Resolved as of 20-Jan-2017 Cough (R05, 786.2) Comments: better Status: Inactive as of 02-Dec-2017 Diabetes Mellitus, Type II Status: Inactive as of 20-Jan-2017 Dysuria (R30.0, 788.1) Status: Resolved as of 14-Dec-2014 Encounter for Medicare annual wellness exam (Z00.00, V70.0) Status: Inactive as of 20-Jan-2017 Encounter for screening for malignant neoplasm of prostate (Renamed from Screening for prostate cancer) (Z12.5, V76.44) Status: Inactive as of 20-Jan-2017 Fall (W19.XXXA, E888.9) Comments: this happened before they adjusted bp meds and before his blood thinner had discussion with patient and risks of hemmorrhagic stroke / and bleeding associated with blood thinner so have to do whatever we can to avoid falls needs to use walker all time and now not dizzy becuase bp is better - we put call out to cardio about his meds though as pulse running higher now off some of the meds - - he will get xrays but told him he should do therapy for strengthening and balance he will consider Status: Inactive as of 21-Jul-2017 fatigue -get sleep study Status: Inactive as of 11-Dec-2008 Headache, migraine (G43.909, 346.90) Status: Inactive as of 30-Dec-2017 Hematuria (Renamed from Blood in the urine) (R31.9, 599.7) Status: Resolved as of 14-Dec-2014 Lesion-Unknown behavior (238.2) Comments: incised left butock and sent to pathology Status: Resolved as of 20-Jan-2017 Neck pain (M54.2, 723.1) Status: Resolved as of 20-Jan-2017 Need for prophylactic vaccination and inoculation against influenza (Z23, V04.81) Status: Inactive as of 02-Mar-2014 Need for prophylactic vaccination and inoculation against influenza (Z23, V04.81) Status: Inactive as of 02-Mar-2014 Need for vaccination against Streptococcus pneumoniae (Z23, V03.82) Status: Inactive as of 14-Dec-2014 Otitis media (H66.90, 382.9) Status: Resolved as of 18-Nov-2008 Pneumococcal vaccination given (Z23, V06.6) Status: Inactive as of 20-Jan-2017 Proteinuria (R80.9, 791.0) Status: Resolved as of 24-Jun-2013 Serous conjunctivitis, unspecified laterality (H10.239, 372.01) Status: Resolved as of 05-May-2009 SOB (shortness of breath) on exertion (R06.02, 786.05) Status: Resolved as of 02-Mar-2014 Sore throat (J02.9, 462) Status: Resolved as of 02-Mar-2014 Unspecified Diagnosis Status: Resolved as of 30-Aug-2008 Unspecified Diagnosis Status: Inactive as of 05-May-2009 Unspecified Diagnosis Status: Inactive as of 14-Dec-2014 Unspecified Diagnosis Status: Inactive as of 20-Jan-2017 Unspecified Diagnosis Status: Inactive as of 20-Jan-2017 Upper respiratory infection (J06.9, 465.9) Status: Resolved as of 02-Mar-2014 Visit for suture removal (Z48.02, V58.32) Status: Resolved as of 22-Mar-2013 Procedures Procedure Dates Details angioplasty 2013 Completed Comments: Dr Germain bilateral stents in legs 2012 Completed Stents Completed Comments: Dr Cheung Date Value Details 06-May-2018 Oncology Visit Report Result: Comments: See Note; NOTES: [facility] [address] [place] [address] OFFICE VISIT Date of Service: 05/06/18 1308 MR#: [id number] Acct: [id number] Name: JV DURHAM Jr. 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 In March 2017 a chest x-ray prompted a CAT scan o f the chest and then a PET CT which showed an abnormal left upper lobe nodule measuring 2.3 cm in maximum diameter highly suspicious for malignancy. Due to limited lung reserve the patient went straight to surgery and on 05/16/2017 he underwent left VATS procedure with left upper lobe wedge resection that revealed an adenocarcinoma measuring 1.8 cm in maximum diameter. Tumor was grade 3, unifocal, rese ction margin was 0.2 cm but there was visceral pleural invasion. No lymphovascular invasion was present and no lymph nodes were dissected. Molecular testing revealed EGFR and ALK mutations negative. The patient recovered from his surgery without complications. Treatment: 05/16/2017 left VATS procedure with left upper lobe wedge resection 07/09/2017-09/17/2017 (4 cycles) Adjuvant Carbo-Alimta - Past Medi tj/Social History Past Medical History Past Medical History: Anemia,Blood transfusion,COPD,Hyperlipidemia, Hypertension,Sleep apnea Cancer: Lung cancer Social History Social History: No changes Smok ing Status Former smoker Review of Systems Constitutional:: Reports: Fatigue - Able to do ADL, arthritis is main limiting factor, - - Nosebleeds, small almost on a daily basis, has been under care of ENT. Denies: Fever, Sweats, Weight loss, Appetite change, Chills Cardiovascular:: Denies: Chest pain, Palpitations, Dyspnea on exertion, Orthopnea, PND, Shortness of breath Respiratory: Denies: Cough, Hemoptysis, Shortness of Breath, Wheezing Gastrointestinal:: Denies: Abdominal pain, Nausea, Vomiting, Diarrhea, Constipation, Hematochezia Genitourinary: Denies: Dysuria, Hematuria, 15, Flank pain Musc uloskeletal:: Denies: Back pain, Myalgia, Arthralgia Skin: Reports: Wounds - Left foot, chronic, under care of podiatry. Denies: Rash, Skin Changes Neurological:: Denies: Headache, Dizziness, Visual teodoro nges, Tinnitus, Hearing loss Psychiatric: Denies: Anxiety, Depression, Homicidal Ideations, Suicidal Ideations Vital Signs Height 5 ft 10 in Weight: 124.012 kg Weight in Pounds 273.4 lbs Pulse Ox 95 - Physical Exam General: Alert, Oriented x3, No apparent distress, - - Overweight, ECOG 1-2 HEENT: Atraumatic, PERRLA, EOMI, Normocephalic Oropharynx:: Dry mucosa Neck:: Supple, Trachea midline, - - P ort okay. Negative for: JVD, bilateral Cardiac:: Normal S1, Normal S2, Irregular rate. Negative for: Murmur Lungs: Clear to auscultation, Diminished, Excusion symmetrical. Negative for: Rhonchi, Wheezes Abdomen:: Soft, Non-tender, Non-distended. Negative for: Hepatosplenomegaly Extremities:: Negative for: Cyanosis, Edema Neurological: Neuro grossly intact Skin:: Ecchymosis. 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 Disease is T2NX. PET scanning 2017 did not suggest systemic metastatic disease. Adverse prognostic factors for his disease include a limited resection to wedge resection, visceral pleural involvement , and unknown storm status. Concluded 4 cycles of adjuvant carbo Alimta (June - September 2017) Main toxicity experienced was bone marrow suppression. Now on surveillance. Follow-up with CT of the chest and abdomen (to cover entire liver and adrenals) June 2018 2-chronic/recurrent iron deficiency anemia due to chronic external blood loss (nose plus or minus GI) and an acute GI bleed in September 2017. He had received IV iron in the past to avoid masking of recurrent GI bleed by the black discoloration of stools with oral iron. His iron studies shows recurrence of his iron deficiency and will receive IV iron this month. Patient has multiple chronic medical conditions including morbid obesity, severe oxygen dependent COPD, CAD, chronic atrial fibrillation, DJD, peripheral neuropathy (predates chemo therapy). Impression and recommendation discussed with patient and his Medications: Prescriptions This Visit Medication Instructions Recorded Budesonide [Pulmicort] 0.25 mg IH TID 10/23/17 Digoxi n 0.25 mg PO DAILY 01/27/18 furosemide 20 mg tablet 20 mg PO QODAY 02/25/18 Primary Care Provider: Gloria Alvarado DO Referring Provider: Marybeth Millan MD 05/06/18 5917 <Electronically karrie d by Marybeth Millan MD> Date Marybeth Millan MD Cosigner Signature: Date (if applicable) CC: Gloria Alvarado DO 02-Mar-2018 Cardiology Visit Report Result: Comments: See Note; NOTES: [facility] [address] [place] [address] OFFICE VISIT Date of Service: 03/02/18 MR#: [id number] Acct: [id number] Name: JV DURHAM Jr. Rep #: [id number] : 1945 Provider: Michoacano Germain MD Age/Sex: 72/M Location: [facility] Status: Signed HPI HPI Chief Complaint: Routine f/u Details: HPI PCP: Dr. Anastasia Alvarado This is 72-year- old male who presents for cardiovascular outpatient follow-up. He has a history of hypertension, morbid obesity, hyperlipidemia, and coronary artery disease with previous bypass surgery in 2005 which in cluded a HERRERA to the LAD and SVG to the obtuse marginal. In 2006 he underwent stenting to the anastomotic site of the HERRERA to the LAD as well as angioplasty to the PDA. Other pertinent history includes Parkinson's disease, frequent falls, COPD, and obstructive sleep apnea. ECG from November 20, 2016 show atrial fibrillation with a rate of 80 bpm. Echocardiogram from November 2016 showed moderate concentric l eft ventricular hypertrophy, estimated ejection fraction 45%, mild to moderate global hypokinesis of the left ventricle, D-shaped septum in diastole, severely dilated right ventricle, moderate global ri ght ventricular systolic dysfunction, severely enlarged left atrium, severely enlarged right atrium, mild mitral valve insufficiency, mild tricuspid valve insufficiency, RVSP of 60 mmHg., Moderate pulmo nary hypertension. May 2013 patient had right common iliac stent placement and left common iliac stent placement at [facility]. Heart cath from April 2013 showed normal LV size and functi on with an EF of 65%, showed widely patent HERRERA to LAD with a patent distal HERRERA to the LAD anastomotic stents, widely patent saphenous vein graft to obtuse marginal system, minimal nonobstructive disea se of the right coronary artery no evidence of restenosis of the previous balloon angioplasty site in the PDA. At that time it was noted to have a lesion of right common iliac. Repeat catheterization on 12/04/16 showed severe three-vessel coronary disease and widely patent grafts and stent from the mid LAD. In addition the patient had been diagnosed with left upper lobe lung cancer around April. Patient underwent lung resection surgery with wedge resection, followed by chemotherapy which she has completed. No x-ray therapy was performed. The patient was recently admitted in December 2017 for sh ortness of breath and underwent a dobutamine echocardiogram on 12/04/17 which was normal. He is now here in follow-up. From a cardiac standpoint he is doing well. Pt denies chest discomfort. Their exerc ise tolerance is stable. Pt denies symptoms of CHF, palpitations, lightheadedness, dizziness, near syncopal or syncopal episodes. Pt denies edema or claudication issues. Pt. denies any fever or chills. Pt. denies pain in abdomen, jaw, or arm. Patient states shortness of breath is improved with lasix. Pt. wears oxygen at night, can tolerate his CPAP machine for a couple hours each evening. Patient was recently admitted to the hospital in December 2017 we attempted DC cardioversion in the past, but unfortunately this was unsuccessful. He remains on anticoagulation therapy for his chronic atrial fibrillati on. His heart rate at home runs in the 100s. In office today his blood pressure is 100/60, pulse is 80 and irregular. His physical exam Is as below. His lipids As of 12/23/16 showed LDL of 94 and an HDL of 53. Lipids as of 08/13/17 show an LDL of 19, and an HDL of 25. 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 Is patient in pain?: No Allergies No Known Allergies Allergy (Verified 03/02/18 15:21) Medications Fenofibrate [Tricor] 145 mg PO DAILY [History Confirmed 02/25/18] Folic Acid 1 mg PO DAILY@1200 05/06/13 [History Confirmed 02/25/18] Tiotropium Flora [Spiriva 18 MCG] 1 puff INHALATION DAILY 05/06/13 [History Confirmed 02/25/18] D uloxetine HCl 60 mg PO QHS 06/21/17 [History Confirmed 02/25/18] Pramipexole Di- HCl [Mirapex] 0.5 mg PO TID 12/04/16 [History Confirmed 02/25/18] metoprolol tartrate 25 mg tablet 25 mg PO QDAY #30 tab 0 09/25/17 [Rx Confirmed 02/25/18] aspirin 81 mg tablet,delayed release 81 mg PO QDAY 10/06/17 [History Confirmed 02/25/18] cyanocobalamin (vit B-12) 1,000 mcg tablet 1,000 mcg PO DAILY@1200 10/20/17 [Hist ory Confirmed 02/25/18] docusate sodium 100 mg capsule 100 mg PO BID cap 10/20/17 [History Confirmed 02/25/18] gabapentin 600 mg tablet 1,200 mg PO QHS tab 10/20/17 [History Confirmed 02/25/18] Budesoni de [Pulmicort] 0.25 mg IH TID 10/23/17 [History Confirmed 02/25/18] Formoterol Fumarate [Perforomist] 20 mcg INHALATION BID 12/22/17 [History Confirmed 02/25/18] Multivit-Min/Iron Fum/Folic AC [Multi-Vi tamin-Minerals Tablet] 1 ea PO BID 12/22/17 [History Confirmed 02/25/18] Omeprazole 20 mg PO DAILY@1700 12/22/17 [History Confirmed 02/25/18] Sennosides/Docusate Sodium [Senna-Docusate Sodium Tablet] 2 tab PO QHS 12/22/17 [History Confirmed 02/25/18] Digoxin 0.25 mg PO DAILY 01/27/18 [History Confirmed 02/25/18] pravastatin 40 mg tablet 40 mg PO QHS #90 tab 02/02/18 [Rx Confirmed 02/25/18] potassium c hloride ER 10 mEq tablet,extended release 20 meq PO DAILY #180 tab 02/18/18 [Rx Confirmed 02/25/18] furosemide 20 mg tablet 20 mg PO QODAY 02/25/18 [History Confirmed 02/25/18] furosemide 40 mg tablet 4 0 mg PO .COMPLEX tab 02/25/18 [History Confirmed 02/25/18] rivaroxaban 10 mg tablet 10 mg PO DAILY 02/25/18 [History Confirmed 02/25/18] losartan 25 mg tablet 25 mg PO DAILY 03/02/18 [History Confirmed 03/02/18] [facility] Medical History GI bleed (Acute) Chronic atrial fibrillation (Chronic) port placement (Acute) Secondary pulmonary arterial hypertension (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) Atherosclerosis of coronary artery of [place] heart without angina pectoris (Chronic) 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 (Chronic) Chemotherapy induced neutropenia (Acute) Anemia (Acute) COPD (chronic obstructive pulmonary disease) (Acute) Dyspnea (Acute) Diabetes (Acute) Neuropathy (Acute) Arthritis (Acute) Obesity (Acute) Alcohol dependence (Acute) GERD (gastroesophageal reflu x disease) (Acute) DJD (degenerative joint disease) (Acute) Vascular disease (Acute) Renal disease (Acute) Macular degeneration (Acute) Arrhythmia (Acute) Migraine (Acute) Memory loss (Acute) Hypotestos teronism (Acute) Essential tremor (Acute) Parkinsons (Acute) Dementia (Acute) HEBER (obstructive sleep apnea) (Acute) Benign essential hypertension (Acute) Hammertoes of both feet (Acute) Surgical Histo ry angiolasty and stenting to BLE iliac arteries (Chronic 08/04/12) History of left heart catheterization (Chronic 12/04/16) History of coronary artery stent p lacement (Chronic 12/23/06) Left VATS procedure with wedge resection KATIE (Acute) History of cardioversion (Chronic 12/2016) H/O coronary artery bypass surgery (Chronic 02/14/06) S/P CABG x 2 (Acute) F amily History Sister Alcoholism Cancer Mother Arthritis Father Arthritis Brother Cancer Social History Smoking Status: Former smoker second hand exposure: No alcohol intake: never substance use type: does not use caffeine: No what type of physical activity do you participate in: none frequency: does not exercise seatbelt use: always ROS Const Con st: Positive for other (Was in [facility] in December for cellulitis); negative for fatigue, weakness, body ache, fever(s), headache(s), chills, frequent falls, night sweats, daytime sleepiness, difficulty sleepin g, excessive sweating, weight gain, weight loss, increased appetite, poor appetite or anorexia Eyes Eyes: Negative for blind spots, loss of peripheral vision, transient loss of vision, blurry vision, ch filemon in vision, double vision, floaters, tunnel vision or other ENT ENT: Negative for headache(s), dizziness, hearing loss, tinnitus, Nosebleed/epistaxis, balance problems, post nasal drip, lip swelling , tongue swelling, bleeding gums, hoarseness, neck pain, dry mouth or other Cardio Chest Pain: No Palpitations: No Edema: None Muscle aches with walking: None Resp Respiratory: Negative for SOB with act ivity, SOB at rest, SOB orthopnea\SOB lying down, Cough, Coughing up blood/hemoptysis, chest congestion, pain on inspiration, snoring, stridor, wheezing, crackles, paroxysmal nocturnal dyspnea or other GI GI: Negative nausea, vomiting, heartburn, constipation, belching, bloating, cramping, vomiting blood/hematemesis, bright, red blood in stools, black,tarry stools, loose stools, Difficulty Swallowing or other : Negative for hematuria, frequent nighttime urination/ nocturia, erectile dysfunction or abnormal vaginal bleeding Musc Musc: Positive for joint pain (Needs right knee replacement); negat cindy for balance problems, muscle aches/ myalgia or muscle weakness Skin Skin: Negative redness, non-healing lesions, rash, unusual bruising, skin ulcer, wounds, jaundice or other Neuro Neuro: Positive f or other (Uses walker for balance and joint pain in knee); negative for weakness, headache(s), frequent falls, blurry vision, double vision, dizziness, lightheadedness, near syncope, syncope, orthostati c symptoms, confusion, memory loss, restless legs, vertigo, seizures or lack of coordination Chivo Hematologic/Lymphatic: Negative for easy bleeding, easy bruising, enlarged lymph nodes or other Endo End o: Negative for fatigue, excessive sweating, cold intolerance, heat intolerance, flushing, increased thirst/drinking, increased hunger, hair loss, hair growth or other Psych Psych: Negative for anxiety, depression, thoughts of harming anyone, thoughts of harming yourself, visual hallucinations, panic attacks or audible hallucinations Allergy Allergy/Immunology: Negative for lip swelling, Negative for tongue swelling, Negative for rash, Negative for throat swelling, Negative for hives Cardiology Exam Const Appearance: cooperative, healthy appearing and no acute distress Nutritional Appearance: well nourished Orientation: alert, oriented x3 and oriented to person Head Head: normal to inspection, atraumatic and normocephalic Nose: external nose normal Face and Sinus: face symmetric Mouth: oral muco gilson normal Eyes General: appearance normal, both eyes and all related structures Eyelids: eyelids normal Conjunctivae: conjunctivae normal Pupils: PERRL and normal by confrontation EOM: EOM intact bilat erally Neck Neck: normal visual inspection and full ROM Carotids: normal carotid upstroke Chest Chest inspection: normal inspection of the chest Auscultation: Bilateral: Clear to Auscultation Cardio Pal pation: normal PMI Rate: regular rate Rhythm: irregularly irregular Heart sounds: S1 normal and S2 normal GI GI: normal to inspection, no hepatosplenomegaly and bowel sounds present Neuro General: alert , oriented x3, awake, CN's II-XI intact bilaterally and moves all extremities Skin Skin: no rashes or lesions noted Extremities Pulses: Normal: Right Femoral Pulse, Left Femoral Pulse, Right Dorsalis Pe dis Pulse, Left Dorsalis Pedis Pulse, Right Posterior Tibial Pulse, Left Posterior Tibial Pulse, Right Radial Pulse, Left Radial Pulse Lower Extremity Edema: None: Bilateral Psych Psychological: normal affect Assessment AND Plan 1. Chronic atrial fibrillation I48.2 Plan 1. Chronic atrial fibrillation: The patient's heart rate is fairly well controlled and he is on lifelong anticoagulation therapy. D espite his normal LV function he appears to be well controlled with digoxin and metoprolol combination. Recommend he continue Xarelto therapy going forward. Recent stress test in December 2017 was negative for inducible ischemia 2. Atherosclerosis of coronary artery of [place] heart without angina pectoris I25.10 CABG x 2 HERRERA-LAD, SVG-OM 02/14/2006 [id number] anastomosis-LAD w/ Taxus 2.75 x 8 mm and POBA -PDA 12/23/2006 Plan . 2. Coronary artery disease: No exertional anginal symptoms at this time. His most recent catheterization was in 2015 which showed severe three-vessel coronary disease, widely blunt nt grafts and widely patent anastomotic stent from the HERRERA to the LAD. Recent stress test is negative for inducible ischemia. Continue baby aspirin. 3. HEBER (obstructive sleep apnea) G47.33 Plan 3. Obs tructive sleep apnea: This is managed by Dr. Salazar. Continue BiPAP therapy as well as oxygen at night and with exertion. 4. Hyperlipidemia: His LDL and HDL cholesterol are fairly well-controlled. Con tinue Pravachol. 4. Return office in 6 months. This note was generated using a voice recognition system and there may be incorrect words, spelling or punctuation that were not noted when reviewing the office note prior to saving. Plan Detail Other Medications New: Discontinued: losartan-hydrochlorothiazide 100-25 mg Discontinued Reason: Order Chan25 mg PO DAILY ged Follow Up +6M (Jose) Coding L evel of Care Code Off vis,est,level 3 Diagnoses Chronic atrial fibrillation I48.2 Atherosclerosis of coronary artery of [place] heart without angina pectoris I25.10 HEBER (obstructive sleep apnea) G47.33 Coding Level of Care Code Off vis,est,level 3 Diagnoses Chronic atrial fibrillation I48.2 Atherosclerosis of coronary artery of [place] heart without angina pectoris I25.10 HEBER (obstructive sleep apne a) G47.33 03/02/18 1538 <Electronically signed by Michoacano Germain MD> Date Michoacano Germain MD Cosign Signature: Date ___ (if applicable) CC: Gloria Alvarado DO 27-Jan-2018 Oncology Visit Report Result: Comments: See Note; NOTES: [facility] [place] [address] OFFICE VISIT Date of Service: 01/27/18 1435 MR#: [id number] Acct: [id number] Name: JV DURHAM Jr. Rep #: [id number] : 1945 From: Marybeth Millan MD Age/Sex: 72/M Location: [facility] Status: Signed - Problem List (1) 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 Status: Chronic ( 2) Cancer of upper lobe of left lung Status: Chronic (3) Anemia Status: Acute (4) Iron deficiency anemia due to chronic blood loss Status: Chronic Comment: Gastric AVMs, September 2017 - Date of Service Date of Service:: 01/27/18 - Chief Complaint Lung cancer - History of Present Illness Patient is a 71-year-old gentleman former smoker quit over 20 years ago with a complicated multiple chronic medic al illnesses including severe oxygen dependent COPD, CAD, chronic atrial fibrillation, diabetes, hypertension, morbid obesity, DJD, chronic peripheral neuropathy and possible past history of excessive a lcohol consumption. In March 2017 a chest x-ray prompted a CAT scan of the chest and then a PET CT which showed an abnormal left upper lobe nodule measuring 2.3 cm in maximum diameter highly suspiciou s for malignancy. Due to limited lung reserve the patient went straight to surgery and on 05/16/2017 he underwent left VATS procedure with left upper lobe wedge resection that revealed an adenocarcinoma measuring 1.8 cm in maximum diameter. Tumor was grade 3, unifocal, resection margin was 0.2 cm but there was visceral pleural invasion. No lymphovascular invasion was present and no lymph nodes were dis sected. Molecular testing revealed EGFR and ALK mutations negative. The patient recovered from his surgery without complications. 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 Denies: Fev er, Sweats, Appetite change, Chills Cardiovascular:: Reports: Dyspnea on exertion. Denies: Chest pain, Palpitations, Orthopnea, PND, Shortness of breath Respiratory: Reports: Shortness of breath upon ex ertion. Denies: Cough, Hemoptysis, Shortness of Breath, Wheezing Gastrointestinal:: Denies: Abdominal pain, Nausea, Vomiting, Diarrhea, Constipation, Hematochezia Genitourinary: Denies: Dysuria, Hematur ia, 15, Flank pain Musculoskeletal:: Denies: Back pain, Myalgia, Arthralgia Skin: Denies: Rash, Skin Changes, Wounds Neurological:: Denies: Headache, Dizziness, Visual changes, Tinnitus, Hearing loss Ps ychiatric: Denies: Anxiety, Depression, Homicidal Ideations, Suicidal Ideations Vital Signs Height 5 ft 10 in Weight: 124.012 kg Weight in Pounds 273.4 lbs Pulse Ox 97 - Physical Exam General: Aler t, Oriented x3, No apparent distress, - - Overweight ECOG 1-2 HEENT: Atraumatic, PERRLA, EOMI, Normocephalic Oropharynx:: Dry mucosa Neck:: Supple, Trachea midline, - - Port okay. Negative for: JVD, donnell ateral Cardiac:: Normal S1, Normal S2, Irregular rate. Negative for: Murmur Lungs: Clear to auscultation, Diminished, Excusion symmetrical. Negative for: Rhonchi, Wheezes Abdomen:: Soft, Non-tender, Non -distended. Negative for: Hepatosplenomegaly Extremities:: Negative for: Cyanosis, Edema Neurological: Neuro grossly intact Skin:: Negative for: Lesions, Rash, Petechiae, Ecchymosis Psychiatric:: Approp riate affect, Euthymic Lymphatics:: Negative for: Cervical lymphadenopathy, Supraclavicular lymphadenopathy Laboratory Data: Laboratory Tests WBC 9.3 Hgb 10.4 L Hct 34.1 L Plt Count 259 Iron 26 L TIBC 381 Iron Saturation 6.8 L Ferritin 28 Diagnostic Data: CT chest December 2017: MPRESSION: Left lung apical scar consistent with prior resection. Scattered small pulmonary nodules are nonspecific and edmundo uld be followed CT abdomen December 2017: IMPRESSION: Stable right adrenal nodule containing macroscopic fat and exhibiting benign features. No acute upper abdominal process is otherwise evident. 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 Disease is T2NX. PET scanning 2017 did not suggest systemic metastatic disease. Adverse prognostic factors for his disease include a limited resection to wedge resection, visceral pleural involvement, and unknown storm status. Concl uded 4 cycles of adjuvant carbo Alimta (June - September 2017) Main toxicity experienced was bone marrow suppression. At present there is no evidence to suggest measurable active cancer. Pulmonary nodule s nonspecific sub-centimeters will need follow-up Now on surveillance. Follow- up in 3 months and a CAT scan in 6 months 2-history of iron deficiency anemia due to chronic GI blood loss and an acute GI bleed in September 2017. Iron studies December 2017 showed residual deficiency for which we will prescribed IV iron to avoid masking of ongoing GI blood loss by black discoloration of the stool with oral iron. Patient has multiple chronic medical conditions including morbid obesity, severe oxygen dependent COPD, CAD, chronic atrial fibrillation, DJD, peripheral neuropathy (predates chemotherapy). Impression and recommendation discussed with patient and his Medications: Prescriptions This Visit Medication Instructions Recorded Budesonide [Pulmicort] 0.25 mg IH TID 10/23/17 Primary Care Provider: Garnica DO Referring Provider: Marybeth Millan MD 01/27/18 1539 <Electronically signed by Marybeth Millan MD> Date Marybeth Millan MD Cosigner Signature: Date (if applicable) CC: Gloria Alvarado DO 13-Jan-2018 Abdomen WITH IV Contrast Result: Comments: See Note; NOTES: [facility] Imaging Services [address] [place] [address] Abdomen WITH IV Contrast MR#: [id number] Acct: [id number] Name: JV DURHAM Jr. Rep #: [id number] : 1945 72 From: Glen Stevenson MD PCP: Gloria Alvarado DO Status: REG CLI Study: Abdomen WITH IV Contrast Date of Exam: 01/13/18 Exam# [id number] Ordering Dr: Marybeth Millan MD: CT ABDOMEN WITH CONTRAST REASON FOR EXAM: Male, 72 years old. 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 RADIATION DOSAGE (If Supplied By Facility): CTDIvol = ( 24.64 ) mGy, DLP = ( 1987. 55 ) mGycm TECHNIQUE: Transaxial images were obtained post I.V. administration of 100 ml of Isovue 300 contrast, and no oral contrast. Sagittal and coronal images were reconstructed. Individualized do se optimization techniques were used for this CT. COMPARISON: CTA chest 03/18/2017. CT chest 01/13/2018. FINDINGS: Abdominal body wall soft tissues: No acute process. Osseous structures: Mild lumbar spondylosis. Osteopenia. Mild scoliosis. No acute osseous process. Facet hypertrophy contributes to mild foraminal stenosis at L4-L5 and L5-S1. Hepatobiliary: Normal. Pa ncreas: Mild atrophy. Spleen: Normal. Adrenal glands: Normal left adrenal gland. Right adrenal nodule measures craniocaudal 4.9 cm, anterior-posterior 5.3 cm, transverse 3.9 cm. It contains small foci o f macroscopic fat. No change compared to prior imaging of March 2017 and therefore likely benign. Kidneys: Symmetric nephrograms. No significant atrophy. No suspicious lesions. Normal collecting syste ms and proximal ureters. Retroperitoneum: No mass or lymphadenopathy. Vasculature: Prominent circumferential calcifications of the aorta with mild nonaneurysmal ectasia of the infrarenal abdominal aorta , prominent calcified plaque with what appears to be a short stent in the proximal right renal artery, stent of the right common iliac artery. Stomach: No acute process. Small bowel: Evaluated portions are unremarkable. Normal mesentery. Large bowel: Evaluated portions of the large bowel exhibit no acute process. There is diverticulosis of the distal large bowel without visible diverticulitis. Free fl uid or free air: None. CT/Abdomen WITH IV Contrast IMPRESSION: Stable right adrenal nodule containing macroscopic fat and exhibiting benign featu res. No acute upper abdominal process is otherwise evident. Electronically Signed: Glen Stevenson, at 16:53 EDT Tel , Service support , CC: Gloria Alvarado DO; Marybeth Millan MD Screening Technician: Signed 13-Jan-2018 Chest WITH Contrast Result: Comments: See Note; NOTES: [facility] Imaging Services [address] [place] [address] Chest WITH Contrast MR#: [id number] Acct: [id number] Name: JV DURHAM Jr. Rep #: [id number] : 1945 M 72 From: Glen Stevenson MD PCP: Gloria Alvarado DO Status: REG CLI Study: Chest WITH Contrast Date of Exam: 01/13/18 Exam# [id number] Ordering Dr: Marybeth Millan MD STUDY: CT C HEST WITH CONTRAST REASON FOR EXAM: Male, 72 years old. Neoplasm of the upper lobe of the lung. Follow-up. RADIATION DOSAGE (If Supplied By Facility): CTDIvol = ( 24.64 ) mGy, DLP = ( 1987.55 ) mGycm TECHNIQUE: Transaxial imaging was performed following intravenous administration of 100 ml of Isovue 300 contrast material. Coronal and sagittal 2-D MPR. Individualized dose optimization techniques we re used for this CT. COMPARISON: CTA chest 03/18/2017. FINDINGS: Supraclavicular: No acute process. Thoracic body wall soft tissues: No acute process. Next line uppe r abdomen: Stable right adrenal nodule described in the CT abdomen dictation. Please see that report. Osseous structures: Median sternotomy. No acute process. Mediastinum: Normal esophagus. No mass or l ymphadenopathy. Heart: Borderline cardiomegaly, no pericardial effusion, coronary calcifications, CABG. Aorta: Nondilated, mild arch atherosclerosis. Pulmonary arteries: Mildly ectatic, no evidence of c entral or peripheral pulmonary embolus. Lungs: Background pulmonary pattern consistent with underlying COPD/emphysema with scar at the left lung apex. A few tiny scattered pulmonary nodules are present bilaterally the largest on the left measuring about 4 mm, on image 41. Nonspecific. There is mild subpleural reticulation in the lungs bilaterally consistent with smoking history. There is no acutely cordova spicious lesion. CT/Chest WITH Contrast IMPRESSION: Left lung apical scar consistent with prior resection. Scattered small pulmonary nodules are nonspecific and should be followed according to the Fleischner Society Criteria. At a minimum and low dose screening chest CT is recommended in 1 year. COPD/emphysema. Electronically Signed: Glen melendez, at 17:01 EDT Tel , Service support , CC: Gloria Alvarado DO; Marybeth Millan MD Screening Technician: Signed 21-Dec-2017 Tibia AND Fibula 2 Views Result: Comments: See Note; NOTES: [facility] Imaging Services [address] [place] [address] Tibia AND Fibula 2 Views MR#: [id number] Acct: [id number] Name: JV DURHAM JrAxel Rep #: [id number] : 1945 M 72 From: Gaurav Douglas MD PCP: Gloria Alvarado DO Status: REG ER Study: Tibia AND Fibula 2 Views Date of Exam: 12/21/17 Exam# [id number] Ordering Dr: Peace Gallardo MD [facility] DY: X-RAY - LEFT TIBIA AND FIBULA REASON FOR EXAM: Male, 72 years old. Redness of the left lower extremity, with swelling and pain. Patient reports hitting the lower extremity. Generalized weakness, fa tigue, and increasing shortness of breath for the last several days. Fever. TECHNIQUE: 4 view(s) of the tibia and fibula were obtained. COMPARISON: None. FINDINGS: Normal visualized tibia. Normal visualized fibula. There are surgical clips overlying posterior medial soft tissues in the region of the knee. RAD/Tibia AND Fibula 2 Views IMPRESSION: No demonstrated fracture, dislocation, or destructive osseous lesion. Electronically Signed: Gaurav Douglas MD at 0:25 EDT , Service support , CC: Peace Gallardo MD; Gloria Alvarado DO Screening Technician: Signed 21-Dec-2017 Tibia AND Fibula 2 Views Result: Comments: See Note; NOTES: [facility] Imaging Services [address] [place] [address] Tibia AND Fibula 2 Views MR#: [id number] Acct: [id number] Name: JV DURHAM Jr. Rep #: [id number] : 1945 M 72 From: Gaurav Douglas MD PCP: Gloria Alvarado DO Status: REG ER Study: Tibia AND Fibula 2 Views Date of Exam: 12/21/17 Exam# [id number] Ordering Dr: Peace Gallardo MD [facility] DY: X-RAY - LEFT TIBIA AND FIBULA REASON FOR EXAM: Male, 72 years old. Redness of the left lower extremity, with swelling and pain. Patient reports hitting the lower extremity. Generalized weakness, fa tigue, and increasing shortness of breath for the last several days. Fever. TECHNIQUE: 4 view(s) of the tibia and fibula were obtained. COMPARISON: None. FINDINGS: Normal visualized tibia. Normal visualized fibula. There are surgical clips overlying posterior medial soft tissues in the region of the knee. RAD/Tibia AND Fibula 2 Views IMPRESSION: No demonstrated fracture, dislocation, or destructive osseous lesion. Electronically Signed: Gaurav Douglas MD at 0:25 EDT , Service support , CC: Peace Gallardo MD; Gloria Alvarado DO Screening Technician: Signed 21-Dec-2017 Chest 1 View (Portable) Result: Comments: See Note; NOTES: [facility] Imaging Services [address] [place] [address] Chest 1 View (Portable) MR#: [id number] Acct: [id number] Name: JV DURHAM Jr. Rep #: [id number] : 1945 M 72 From: Chava Latham MD PCP: Gloria Alvarado DO Status: REG ER Study: Chest 1 View (Portable) Date of Exam: 12/21/17 Exam# [id number] Ordering Dr: Peace Gallardo MD STUD Y: X-RAY CHEST REASON FOR EXAM: Male, 72 years old. Weakness TECHNIQUE: Single frontal view of the chest. COMPARISON: 12/19/2017 FINDINGS: Median sternotomy wires. Stable right chest wall port. The lungs are clear and expanded. There is no demonstrated pleural abnormality. Stable cardiac silhouette. Normal mediastinum and yovanny. Normal visualized pulmonary arteri es. Normal visualized aortic arch and descending thoracic aorta. Normal visualized thoracic spine. Normal visualized ribs, clavicles, and shoulders. There is no demonstrated abnormality of the visuali zed soft tissue structures of the upper abdomen. RAD/Chest 1 View (Portable) IMPRESSION: No acute pulmonary findings. Electronically Signed: Ziggy Latham MD at 0:05 EDT Tel , Service support , CC: Peace Gallardo MD; Gloria Alvarado DO Screening Technician: Signed 19-Dec-2017 Chest PA and Lateral Result: Comments: See Note; NOTES: [facility] Imaging Services [address] [place] [address] Chest PA and Lateral MR#: [id number] Acct: [id number] Name: JV DURHAM JrAxel Rep #: [id number] : 1945 M 72 From: Jaime Milligan MD PCP: Gloria Alvarado DO Status: REG CLI Study: Chest PA and Lateral Date of Exam: 12/19/17 Exam# [id number] Ordering Dr: Jv Salazar MD STUDY: X-RAY CHEST REASON FOR EXAM: Male, 72 years old. LUNG NODULE. HX CA TECHNIQUE: Frontal and lateral views of the chest. COMPARISON: 10.06.17. FINDINGS: Chronic appearing increased interstitial lung markings. There are multiple median sternotomy wires. There is evidence for partial pneumonectomy of the left upper lobe. There is no demonstrated pleural abnormality. Ther e is a right Port-A-Cath and/or mediport in place. The tip is in the superior vena cava. Enlarged heart size. Normal mediastinum and yovanny. Normal visualized pulmonary arteries. There is atherosclerotic calcification of the aortic arch with tortuosity. There are diffuse degenerative changes of the visualized thoracic spine. There is degenerative osteoarthritis of the bilateral shoulders. There is no demonstrated abnormality of the visualized soft tissue structures of the upper abdomen. RAD/Chest PA and Lateral IMPRESSION: There are no acute f indings. There is evidence for partial pneumonectomy of the left upper lobe. Electronically Signed: Jaime Milligan MD at 16:56 EDT , Service support , Fax CC: Gloria Alvarado DO; vJ Salazar MD Screening Technician: Signed 06-Dec-2017 Cardiology Visit Report Result: Comments: See Note; NOTES: [facility] [address] [place] [address] OFFICE VISIT Date of Service: 10/24/17 MR#: [id number] Acct: [id number] Name: JV DURHAM JrAxel Rep #: [id number] : 1945 Provider: Michoacano Germain MD Age/Sex: 72/M Location: [facility] [place] Status: Signed HPI HPI Details: JV DURHAM, is a 72 M who presents to the office today for Intake Vital Signs10/24/17 Height 5 ft 10 in 10/24/17 Weight: 277 lb Intake Visit Reasons: 1 M FU Allergies No Known Allergies Allergy (Verified 10/23/17 10:35) Medications Fenofibrate [Tricor] 145 mg P O DAILY 05/06/13 [History Confirmed 10/24/17] Folic Acid 1 mg PO DAILY@0800 05/06/13 [History Confirmed 10/24/17] Tiotropium Flora [Spiriva 18 MCG] 1 puff INHALATION DAILY 05/06/13 [History Confirmed 10/24/17] Duloxetine HCl 60 mg PO QHS 12/04/16 [History Confirmed 10/24/17] Pramipexole Di-HCl [Mirapex] 0.5 mg PO TID 12/04/16 [History Confirmed 10/24/17] Digoxin 250 mcg PO DAILY 02/27/17 [History Co nfirmed 10/24/17] furosemide 40 mg tablet 40 mg PO QODAY tab 09/25/17 [History Confirmed 10/24/17] metoprolol tartrate 25 mg tablet 25 mg PO QDAY #30 tab 09/25/17 [Rx Confirmed 10/24/17] pravastatin 40 mg tablet 40 mg PO QHS 09/25/17 [History Confirmed 10/24/17] valsartan 40 mg tablet 40 mg PO QDAY #30 tab 09/25/17 [Rx Confirmed 10/24/17] aspirin 81 mg tablet,delayed release 81 mg PO QDAY 10/06/17 [Hi story Confirmed 10/24/17] cyanocobalamin (vit B-12) 1,000 mcg tablet 1,000 mcg PO QDAY 10/20/17 [History Confirmed 10/24/17] docusate sodium 100 mg capsule 100 mg PO QDAY cap 10/20/17 [History Confirmed 10/24/17] gabapentin 600 mg tablet 600 mg PO BID tab 10/20/17 [History Confirmed 10/24/17] lidocaine-prilocaine 2.5 %-2.5 % topical cream 1 applic TOPICAL .COMPLEX PRN #30 g 10/20/17 [Rx Confirmed 10/14 07/03] potassium chloride ER 20 mEq tablet,extended release 20 meq PO BID 10/20/17 [History Confirmed 10/24/17] Budesonide [Pulmicort] 0.25 mg IH TID 10/23/17 [History Confirmed 10/24/17] Furosemide [Las ix] 20 mg PO QODAY 10/23/17 [History Confirmed 10/24/17] rivaroxaban 20 mg tablet 20 mg PO QDAY 10/24/17 [History Confirmed 10/24/17] PFSH Medical History GI bleed (Acute) Chronic atrial fibrillatio n (Chronic) port placement (Acute) Secondary pulmonary arterial hypertension (Chronic) Atherosclerosis of coronary artery of [place] heart without angina pectoris (Chronic) 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 (Acute) Chemotherapy induced neutropenia (Acute) Anemia (Acute) COPD (chronic obstructive pulmonary disease) (Acute) Dyspnea (Acute) Diabetes (Acute) Neuropathy (Acute) Arthritis (Acute) Obesity (Acute) Alcohol dependence (Acute) GERD (gastroesophageal reflux disease) (Acute) DJD (degenerative joint disease) (Acute) Vascular disease (Acute) Renal disease (Acute) Macular degener ation (Acute) Arrhythmia (Acute) Migraine (Acute) Memory loss (Acute) Hypotestosteronism (Acute) Essential tremor (Acute) Parkinsons (Acute) Dementia (Acute) HEBER (obstructive sleep apnea) (Acute) Benign essential hypertension (Acute) Hammertoes of both feet (Acute) Surgical History angiolasty and stenting to BLE iliac arteries (Chronic 08/04/12) History of left heart catheterization (Chronic 11/15 07/02) History of coronary artery stent placement (Chronic 12/23/06) Left VATS procedure with wedge resection KATIE (Acute) History of cardioversion (Chronic 12/2016) H/O coronary artery bypass surgery ( Chronic 02/14/06) S/P CABG x 2 (Acute) Family History Sister Alcoholism Cancer Mother Arthritis Father Arthritis Brother Cancer Social History Smoking Status: Former smoker second hand exposure: N o alcohol intake: never substance use type: does not use caffeine: No what type of physical activity do you participate in: none frequency: does not exercise seatbelt use: always ROS Const Co nst: Negative for fatigue, weakness, difficulty sleeping, frequent falls, headache(s) or excessive sweating Eyes Eyes: Negative for loss of peripheral vision, transient loss of vision, blurry vision or double vision ENT ENT: Negative for headache(s), dizziness, Nosebleed/epistaxis or balance problems Cardio Chest Pain: No Edema: Bilateral (Trace BLE) Muscle aches with walking: None Resp Respiratory: N egative for SOB with activity, SOB at rest, SOB orthopnea\SOB lying down or paroxysmal nocturnal dyspnea GI GI: Negative nausea or heartburn : Negative for hematuria Musc Musc: Positive for joint p ain; negative for muscle aches/ myalgia, muscle weakness or balance problems Skin Skin: Negative non-healing lesions, unusual bruising or rash Neuro Neuro: Positive for orthostatic symptoms (Occasional) ; negative for weakness, frequent falls, blurry vision, headache(s), dizziness, lightheadedness or double vision Chivo Hematologic/Lymphatic: Negative for easy bruising Endo Endo: Negative for fatigue, e xcessive sweating or increased thirst/drinking Psych Psych: Negative for anxiety or depression Allergy Allergy/Immunology: Negative for hives, Negative for rash Assessment AND Plan Orders Orders: Pl an Detail Follow Up +6M (Jose) Coding Level of Care Code Off vis,est,level 3 Coding Level of Care Code Off vis,est,level 3 12/06/17 3234 <Electronically signed by Michoacano Germain MD&#62 ; Date Michoacano Germain MD Cosign Signature: Date (if applicable) CC: Gloria Alvarado DO 04-Dec-2017 Stress Test Echo w/o Contrast Result: Comments: See Note; NOTES: [facility] Cardiovascular Services [address] [place] [address] Stress Test Echo w/o Contrast MR#: [id number] Acct: [id number] Name: JV DURHAM Jr. Rep #: [id number] : 1945 72 From: Michoacano Germain MD Primary Care: Gloria Alvarado DO Status: REG CLI Ordering Dr: Michoacano Germain MD Sex: M C Reason For Study: CAD, S/P CABG Stress Result s Protocol: Dobutamine Stress Echo Maximum Predicted HR: 148 bpm Target HR: 126 bpm% Maximum Pre dicted HR: 85 % DurationHeart Rate Stage (mm:ss) (bpm) BPCom ment Baseline 77 151/75 No Chest Pain DSE 1 0 MCG 3:00 75 158/85No Chest Pain DSE 20 MCG 3:00 10 8 153/86No Chest Pain DSE 30 MCG 3:00 12 5 138/72No Chest Pain DSE 40 MCG 2:55 12 6 123/55No Chest Pain Recovery 97 119/73 No Chest Pain Stress Dura tion: 11:55 mm:ss Maximum Stress HR: 126 bpmME TS: 1 Baseline Echocardiogram Findings The estimated ejection fraction is 60 %. Stress Echo Wall motion Data Resting WMIntermediate WMStress WM Resting Wall Motion Wall Motion Stress No regional wall motion No regional wall motion abnormalities noted. abnormalities noted. EKG Data Atrial fibrillation with CVR. The patient was titrated from 10 mcg to a maximum of 40 mcg of dobutamine during the stress. The maximum heart rate attained was 144 beats per minute. This was 97% of maximum predicted heart rate. During dobutamine infusion, there were no ST or T wave changes noted to suggest ischemia. No clinical angina was noted. Interpretation Summary The estimated ejection fraction is 60 %. Normal, adequate, dobutamine echocardiogram. Negative for isc hemia by EKG and echocardiographic criteria. No anginal symptoms noted. Appropriate blood pressure response to dobutamine. The patient developed frequent PVCs, ventricular couplets, and ventricular trip lets as well as A. fib with aberrancy at peak infusion, which is a non-specific finding with dobutamine. No sustained ventricular arrhythmias noted. Final LVEF of 75%. Decreased sensitivity due to poor echo windows. No complications. Ordering Physician: Michoacano Germain Referring Physician: Landon Germain Performed By: Vanda Christian, MENDEZ, RVT 12/04/17 1653 Date Michoacano Germain MD CC: Michoacano Germain MD; Gloria Joce DRAPER Date Dictated: 12/04/17 1055 Date Transcribed: 12/04/171652 Screening Technician: Signed 04-Dec-2017 Downtime Report Result: Comments: See Note; NOTES: [facility] Medical Records Department [address] [place] [address] Downtime Report MR#: [id number] Acct: [id number] Name: JV DURHAM Jr. Rep #: [id number] : 1945 72 From: Morgan Ro PCP: Gloria Alvarado DO Status: REG CLI This patient was seen during an EMR downtime November 17, 2017 - November 24, 2017. This patient may have a combination of paper and electronic documentation or all paper documentation. All documentation is viewable within the e-chart portion of [facility] for each patient visit. 26-Nov-2017 Carotid Duplex Ultrasound Result: Comments: See Note; NOTES: [facility] Cardiovascular Services [address] [place] [address] Carotid Duplex Ultrasound 11/24/17 1244 MR#: [id number] Acct: [id number] Name: JV JONES Jr. Rep #: [id number] : 1945 72 From: Jamie Cheung MD Attending Dr: Gloria Alvarado DO Status: REG CLI Ordering Dr: Michoacano Germain MD Date: 11/24/17 Location: [facility] Sex: M C Admitted: Reason For Study: Bruit Rt. Velocities/BP Lt. Velocities/BP Prox CCA 92/8 cm/sec. Prox CCA 89/19 cm/sec. Mid CCA 83/15 cm/sec. Mid CCA 82/9 cm/sec. Dist CCA 104/7 cm/sec. Dist CCA 76/14 cm/sec. Prox ICA 94/19 cm/sec. Prox ICA 85/16 cm/sec. Mid ICA 98/27 cm/sec. Mid ICA 102/24 cm/sec. Dist ICA 99/23 cm/sec. Dist ICA 103/20 cm/sec. Rt. ICA/CCA = 1.19. Lt. ICA/CCA = 1.25. Prox ECA 169/11 cm/sec. Prox ECA 333/22 cm/sec. Rt. Vert. 55/8 cm/sec. Lt. Vert. 48/15 cm/sec. Right Extracranial There is heterogeneous, irregular atherosclerotic plaque noted in the right common carotid artery. There is heteroge neous, irregular atherosclerotic plaque noted in the right internal carotid artery. There is heterogeneous, irregular atherosclerotic plaque noted in the right external carotid artery. Antegrade flow is noted in the right vertebral artery. Left Extracranial There is heterogeneous, irregular atherosclerotic plaque noted in the left common carotid artery. There is heterogeneous, irregular atherosclerot ic plaque noted in the left internal carotid artery. The atherosclerotic plaque causes acoustic shadowing. There is heterogeneous, irregular atherosclerotic plaque noted in the left external carotid art fer. Antegrade flow is noted in the left vertebral artery. Procedure Carotid Duplex [id number]. Exam performed in department. Interpretation Summary Mild (<50%) stenosis right extracranial internal carotid. Mild (<50%) stenosis left extracranial internal carotid. Flow within the vertebral arteries is antegrade bilaterally. Ordering Physician: Michoacano Germain Referring Physician: Gloria Alvarado Performed By: Sumi Morris, RDCS, RVT 11/26/17 1208 Date Jamie Chueng MD CC: Michoacano Germain MD; Gloria Alvarado DO Date Dictated: 11/24/17 1244 Date Transcribed: 11/26/17 1208 Screening Technician: Signed 24-Oct-2017 Cardiology Visit Report Result: Comments: See Note; NOTES: [facility] [address] [place] [address] OFFICE VISIT Date of Service: 10/24/17 MR#: [id number] Acct: [id number] Name: JV DURHAM Jr. Rep #: [id number] : 1945 Provider: Michoacano Germain MD Age/Sex: 72/M Location: [facility] Status: Signed HPI HPI Chief Complaint: Routine f/u Details: Details: This is 72-year-old male who pres ents for cardiovascular outpatient follow-up. He has a history of hypertension, morbid obesity, hyperlipidemia, and coronary artery disease with previous bypass surgery in 2005 which included a HERRERA to the LAD and SVG to the obtuse marginal. In 2006 he underwent stenting to the anastomotic site of the HERRERA to the LAD as well as angioplasty to the PDA. Other pertinent history includes Parkinson's disea se, frequent falls, COPD, and obstructive sleep apnea. ECG from November 20, 2016 show atrial fibrillation with a rate of 80 bpm. Echocardiogram from November 2016 showed moderate concentric left ventricular h ypertrophy, estimated ejection fraction 45%, mild to moderate global hypokinesis of the left ventricle, D-shaped septum in diastole, severely dilated right ventricle, moderate global right ventricular s ystolic dysfunction, severely enlarged left atrium, severely enlarged right atrium, mild mitral valve insufficiency, mild tricuspid valve insufficiency, RVSP of 60 mmHg., Moderate pulmonary hypertension . May 2013 patient had right common iliac stent placement and left common iliac stent placement at [facility]. Heart cath from April 2013 showed normal LV size and function with an EF of 65%, showed widely patent HERRERA to LAD with a patent distal HERRERA to the LAD anastomotic stents, widely patent saphenous vein graft to obtuse marginal system, minimal nonobstructive disease of the right c oronary artery no evidence of restenosis of the previous balloon angioplasty site in the PDA. At that time it was noted to have a lesion of right common iliac. From a cardiac standpoint he is doing wel l. Pt denies chest discomfort. Their exercise tolerance is stable. Pt denies symptoms of CHF, palpitations, lightheadedness, dizziness, near syncopal or syncopal episodes. Pt denies edema or claudicatio n issues. Pt. denies any fever or chills. Pt. denies pain in abdomen, jaw, or arm. Patient states shortness of breath is improved with lasix. Pt. wears oxygen at night, but no CPAP machine. We attempte d DC cardioversion in the past, but unfortunately this was unsuccessful. Patient now returns for routine follow-up. The patient has had several mechanical falls but no syncope. When the patient walks w ith a cane he has a tendency to fall, but when he walks with a walker he is fine. He is awaiting surgical evaluation of his right lower extremity for possible knee surgery so that he can walk better. He remains on anticoagulation therapy for his chronic atrial fibrillation. The patient was recently diagnosed with lung cancer on the left side and underwent a wedge resection after his Xarelto was held. His Xarelto was restarted, and he has undergone 4 out of 4 doses of chemotherapy the last one being 4 weeks ago. The chemotherapy was due to the fact that the surgeon was unable to assess his lymph nod es, and was done for precautionary reasons. He received no radiation therapy. He has required several transfusions, and occasionally has nosebleeds when his platelets go down. He denies any exertional c hest pain, angina but does have dyspnea when his hemoglobin count goes down. As best he can tell he has no metastases on PET scanning, and is on chronic O2 therapy at this time. Patient was in his chivo tologist office on the day prior to her last office visit, and was found to have profound hypotension with systolic pressures in the 70s. He was given a 500 cc bolus and had an episode of nausea and vom iting. Patient's valsartan and Lopressor were held however his Lasix was continued. At that time a CBC showed a hemoglobin of 8.8, platelets of 72,000. His differential demonstrates a microcytic iron de ficient anemia. He is currently on ferrous sulfate. He was asked to return in a month to make sure he is doing well with his cardiac medications and hemoglobin. Soon after her last visit, the patient c omplained of shortness of breath fatigue, and melanic stools for 3 days. He went to [facility] ER where his hemoglobin was found to be 5. He was transferred [facility] where catarina carmona was transfused 4 units of PRBCs, and EGD showed 2 small AVMs with small fresh blood clots in the distal antrum. He was taken off his Eliquis and baby aspirin. About 2 weeks ago his Xarelto was restart ed at half dose, and recently increased to full dose. He is still off his baby aspirin. His melena has completely resolved. Feels much better, and his color is back. He has had no further bleeding. He r equires no further chemotherapy. He does however still require stress testing for knee operation. In office today his blood pressure sitting is 108/60 with a pulse of 72 and irregular His physical exam Is as below. He has a faint right carotid bruit. His lipids As of 12/23/16 showed LDL of 94 and an HDL of 53. Lipids as of 08/13/17 show an HDL of 25 and LDL of 19. Intake Vital Signs10/24/17 Height 5 ft 10 in 10/24/17 Weight: 277 lb Intake Visit Reasons: 1 M FU Allergies No Known Allergies Allergy (Verified 10/23/17 10:35) Medications Fenofibrate [Tricor] 145 mg PO DAILY 05/06/13 [History Co nfirmed 10/24/17] Folic Acid 1 mg PO DAILY@0800 05/06/13 [History Confirmed 10/24/17] Tiotropium Flora [Spiriva 18 MCG] 1 puff INHALATION DAILY 05/06/13 [History Confirmed 10/24/17] Duloxetine HCl 60 mg PO QHS 12/04/16 [History Confirmed 10/24/17] Pramipexole Di-HCl [Mirapex] 0.5 mg PO TID 12/04/16 [History Confirmed 10/24/17] Digoxin 250 mcg PO DAILY 02/27/17 [History Confirmed 10/24/17] furosemide 40 mg tablet 40 mg PO QODAY tab 09/25/17 [History Confirmed 10/24/17] metoprolol tartrate 25 mg tablet 25 mg PO QDAY #30 tab 09/25/17 [Rx Confirmed 10/24/17] pravastatin 40 mg tablet 40 mg PO QHS 09/25 [History Confirmed 10/24/17] valsartan 40 mg tablet 40 mg PO QDAY #30 tab 09/25/17 [Rx Confirmed 10/24/17] aspirin 81 mg tablet,delayed release 81 mg PO QDAY 10/06/17 [History Confirmed 10/24/17] cy anocobalamin (vit B-12) 1,000 mcg tablet 1,000 mcg PO QDAY 10/20/17 [History Confirmed 10/24/17] docusate sodium 100 mg capsule 100 mg PO QDAY cap 10/20/17 [History Confirmed 10/24/17] gabapentin 600 mg tablet 600 mg PO BID tab 10/20/17 [History Confirmed 10/24/17] lidocaine-prilocaine 2.5 %-2.5 % topical cream 1 applic TOPICAL .COMPLEX PRN #30 g 10/20/17 [Rx Confirmed 10/24/17] potassium chloride ER 20 mEq tablet,extended release 20 meq PO BID 10/20/17 [History Confirmed 10/24/17] Budesonide [Pulmicort] 0.25 mg IH TID 10/23/17 [History Confirmed 10/24/17] Furosemide [Lasix] 20 mg PO QODAY 10/23/17 [History Confirmed 10/24/17] rivaroxaban 20 mg tablet 20 mg PO QDAY 10/24/17 [History Confirmed 10/24/17] PFSH Medical History GI bleed (Acute) Chronic atrial fibrillation (Chronic) port placement ( Acute) Secondary pulmonary arterial hypertension (Chronic) Atherosclerosis of coronary artery of [place] heart without angina pectoris (Chronic) 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 (Acu te) Chemotherapy induced neutropenia (Acute) Anemia (Acute) COPD (chronic obstructive pulmonary disease) (Acute) Dyspnea (Acute) Diabetes (Acute) Neuropathy (Acute) Arthritis (Acute) Obesity (Acute) Alc ohol dependence (Acute) GERD (gastroesophageal reflux disease) (Acute) DJD (degenerative joint disease) (Acute) Vascular disease (Acute) Renal disease (Acute) Macular degeneration (Acute) Arrhythmia (Ac atka) Migraine (Acute) Memory loss (Acute) Hypotestosteronism (Acute) Essential tremor (Acute) Parkinsons (Acute) Dementia (Acute) HEBER (obstructive sleep apnea) (Acute) Benign essential hypertension (Acu te) Hammertoes of both feet (Acute) Surgical History angiolasty and stenting to BLE iliac arteries (Chronic 08/04/12) History of left heart catheterization (Chronic 12/04/16) History of coronary ar adonay stent placement (Chronic 12/23/06) Left VATS procedure with wedge resection KATIE (Acute) History of cardioversion (Chronic 12/2016) H/O coronary artery bypass surgery (Chronic 02/14/06) S/P CABG x 2 (Acute) Family History Sister Alcoholism Cancer Mother Arthritis Father Arthritis Brother Cancer Social History Smoking Status: Former smoker second hand exposure: No alcohol intake: never cordova bstance use type: does not use caffeine: No what type of physical activity do you participate in: none frequency: does not exercise seatbelt use: always Cardiology Exam Const Appearance: ailin ative, healthy appearing and no acute distress Nutritional Appearance: well nourished Orientation: alert, oriented x3 and oriented to person Head Head: normal to inspection, atraumatic and normocephalic Nose: external nose normal Face and Sinus: face symmetric Mouth: oral mucosae normal Eyes General: appearance normal, both eyes and all related structures Eyelids: eyelids normal Conjunctivae: conjunct ivae normal Pupils: PERRL and normal by confrontation EOM: EOM intact bilaterally Neck Neck: normal visual inspection and full ROM Carotids: normal carotid upstroke and bruit Right Chest Chest inspectio n: normal inspection of the chest Auscultation: Bilateral: Clear to Auscultation Cardio Palpation: normal PMI Rate: regular rate Rhythm: regular rhythm Heart sounds: S1 normal and S2 normal GI GI: indra l to inspection, no hepatosplenomegaly and bowel sounds present Neuro General: alert, oriented x3, awake, CN's II-XI intact bilaterally and moves all extremities Skin Skin: no rashes or lesions noted Ex tremities Pulses: Normal: Right Femoral Pulse, Left Femoral Pulse, Right Dorsalis Pedis Pulse, Left Dorsalis Pedis Pulse, Right Posterior Tibial Pulse, Left Posterior Tibial Pulse, Right Radial Pulse, L eft Radial Pulse Lower Extremity Edema: None: Bilateral Psych Psychological: normal affect Assessment AND Plan 1. Atherosclerosis of coronary artery of [place] heart without angina pectoris I25.10 CABG x 2 HERRERA-LAD, SVG-OM 02/14/2006 ZDO-PAG-PPTX anastomosis-LAD w/ Taxus 2.75 x 8 mm and POBA-PDA 12/23/2006 Plan 1. Coronary artery disease: No anginal symptoms at this time. We are awaiting repeat hemoglo bin. Blood pressure is much better, and he is asymptomatic. I recommend that we resume his baby aspirin in 3 days time giving his AVMs a month to heal. He has tolerated full dose Xarelto for some time w ithout any further melena. I recommended he undergo a dobutamine echocardiogram in 4 weeks time once we have confirmed that his hemoglobin has remained stable. If this is grossly abnormal for ischemia h e may require diagnostic coronary angiogram prior to his knee surgery. If it is negative for inducible ischemia he will be deemed at low risk for noncardiac surgery. In the meantime he will continue hi s Lasix, valsartan and metoprolol. Orders Orders: 2. Chronic atrial fibrillation I48.2 Plan 2. Atrial fibrillation: The patient has permanent atrial fibrillation requires lifelong anticoagulation thera py. Since his EGD 1 month ago he has had no further melena. He is back on full dose Xarelto. Continue Xarelto therapy. Continue Lopressor for heart rate control. 3. Right carotid bruit: Recommend orderi ng a bilateral carotid ultrasound given his known severe peripheral vascular disease. Continue baby aspirin. 4. Hyperlipidemia: His LDL and HDL cholesterol are fairly well-controlled as of July 2017 . Continue Pravachol. 5. Return office in 6 months. This note was generated using a voice recognition system and there may be incorrect words, spelling or punctuation that were not noted when reviewing the office note prior to saving. Orders Orders: Plan Detail Other Orders Orders: Follow Up +6M (Jose) Coding Level of Care Code Off vis,est,level 3 Diagnoses Atherosclerosis of coronary artery of [place] without angina pectoris I25.10 Chronic atrial fibrillation I48.2 Coding Level of Care Code Off vis,est,level 3 Diagnoses Atherosclerosis of coronary artery of [place] without angin a pectoris I25.10 Chronic atrial fibrillation I48.2 10/24/17 1350 <Electronically signed by Michoacano Germain MD> Date Michoacano Germain MD Cosigner Signature: Date (if applicable) CC: 23-Oct-2017 Oncology Visit Report Result: Comments: See Note; NOTES: [facility] [address] [place] [address] OFFICE VISIT Date of Service: 10/23/17 1043 MR#: [id number] Acct: [id number] Name: JV DURHAM Jr. Rep #: [id number] : 1945 From: Salina MONIQUE Age/Sex: 72/M Location: ONC Status: Signed Subjective - Date of Service Date of Service:: 10/23/17 - Chief Complaint Survivorship Ca re Planning - History of Present Illness Patient is a 72-year-old gentleman former smoker quit over 20 years ago with a complicated multiple chronic medical illnesses including severe oxygen dependent COPD, CAD, chronic atrial fibrillation, diabetes, hypertension, morbid obesity, DJD, chronic peripheral neuropathy and possible past history of excessive alcohol consumption. In March 2017 a chest x- ray prompted a CAT scan of the chest and then a PET CT which showed an abnormal left upper lobe nodule measuring 2.3 cm in maximum diameter highly suspicious for malignancy. Due to limited lung reserve the patient went straight to surgery and on 05/16/2017 he underwent left VATS procedure with left upper lobe wedge resection that revealed an adenocarcinoma measuring 1.8 cm in maximum diameter. Tumor wa s grade 3, unifocal, resection margin was 0.2 cm but there was visceral pleural invasion. No lymphovascular invasion was present and no lymph nodes were dissected. Molecular testing revealed EGFR and AL K mutations negative. The patient recovered from his surgery without complications. Treatment: 05/16/2017 left VATS procedure with left upper lobe wedge resection 07/09/2017-09/17/2017 (4 cycles) Adjuvant Carbo-Alimta - Interval History The patient is presenting to clinic accompanied by spouse to review treatment summary and survivorship care planning visit. Denies any concerns r/t today's visit. States he has home health coming several times a week with PT/OT and is making progress in terms of increased stamina and activity. Has an appointment tomorrow with cardiology and anticipates they will discus s stress test as that was planned prior to his diagnosis in May. - Past Medical/Social History Past Medical History Past Medical History: Anemia,Blood transfusion,COPD,Hyperlipidemia, Hypertensio n,Sleep apnea Cancer: Lung cancer Social History Social History: No changes Smoking Status Former smoker Review of Systems Constitutional:: Reports: Weakness, Fatigue - improving. Denies: Fever, Sw eats, Weight loss, Appetite change, Chills Cardiovascular:: Reports: Dyspnea on exertion - on 2 L O2 per nc. Denies: Chest pain, Palpitations, Orthopnea, PND Respiratory: Denies: Cough, Hemoptysis, Shor tness of Breath, Wheezing Gastrointestinal:: Denies: Abdominal pain, Nausea, Vomiting, Diarrhea, Constipation, Hematochezia Genitourinary: Reports: Urinary frequency. Denies: Dysuria, Hematuria, Flank p ain Skin: Denies: Rash, Skin Changes, Wounds Neurological:: Denies: Headache, Dizziness, Numbness, Tingling, Frequent falls, Visual changes, Tinnitus, Hearing loss Psychiatric: Denies: Anxiety, Depressi on, Homicidal Ideations, Suicidal Ideations Vital Signs Height 5 ft 10 in Weight: 281 lb Weight in Pounds 281.0 lbs Pulse Ox 92 - Physical Exam General: Alert, Oriented x3, No apparent distress, - - uses wheeled walker HEENT: Atraumatic, Normocephalic, - - on 2 L O2 per nc Oropharynx:: Negative for: Dry mucosa, Ulcerated lesions Neck:: Supple, Trachea midline. Negative for: JVD, bilateral Cardiac :: Regular rate, Regular rhythm, Normal S1, Normal S2 Lungs: Clear to auscultation, Diminished - left, Excusion symmetrical. Negative for: Rhonchi, Wheezes, Increased respiratory effort Abdomen:: Bowel sounds x 4, Soft, Non-tender, Non-distended. 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 Disease is T2NX. PET scanning 2017 did not suggest systemic metastatic disease. Adverse prog nostic factors for his disease include a limited resection to wedge resection, visceral pleural involvement, and unknown storm status. Concluded 4 cycles of adjuvant carbo Alimta (June - September 2017) Main toxicity experienced was bone marrow suppression. Entering surveillance program. CT scan chest and abdomen (to include the entire liver and adrenal glands) planned for beginning of January 2018. Rev iewed treatment summary and survivorship care plan documentation. Copies of which will be provided to the patient and all members of his health care team. Engaged in lengthy conversation regarding [facility]/late side effects associated with chemotherapy exposure, recommendations for follow up and signs/symptoms of concern that should be report in between visits. Stressed importance of contin ued focus on adequate nutrition and fluid intake and daily exercise and abstinence from tobacco products. Psychosocial AND spiritual health- He is well supported by spouse of 50 years and describes a g ood support system by way of children and grandchildren. Continues to adjust to life as a cancer survivor. We discussed coping strategies and potential resources. 2-iron deficiency anemia due to chroni c GI blood loss and an acute GI bleed in September 2017. Venofer 300 mg IV x 1 to be given subsequent to our visit today. Comorbidities: multiple chronic medical conditions including morbid obesity, severe oxygen dependent COPD, CAD, chronic atrial fibrillation, DJD, peripheral neuropathy (predates chemotherapy). Greater than 50% of this one hour visit was spent in counseling and a significant amount of time was allotted for questions. All the patient's concerns were addressed to his satisfaction. Return to clinic to review imaging studies as previously planned. Salina Díaz, MSN, BROWNELL OPERATOR-C, A OCNP Medications: Prescriptions This Visit Medication Instructions Recorded Furosemide [Lasix] 20 mg PO QODAY 10/23/17 Primary Care Provider: Gloria Alvarado DO Referring Provider: Zion Gallagher - Problem List (1) 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 Status: Acute (2) Educational circumstance Status: Acute 10/23/17 7083 <Electronically signed by Salina Díaz NP- C> Date Salina BARKERC Cosigner Signature: Date (if applicable) CC: 23-Oct-2017 End of Treatment Summary Result: Comments: See Note; NOTES: [facility] [address] [address] End of Treatment Summary Date of Service: 10/16/17 1035 MR#: [id number] Acct: [id number] Name: JV LAND Rep #: [id number] : 1945 From: Salina Díaz AUTOMOTIVE PROJECT ENGINEERSamuel Age/Sex: 72/M Location: OMD Status: Signed General Information Primary Care Provider:: Gloria Alvarado Surgeon Name: Landon Agee - Thoracic surgeon, [facility] On[facility]ologist:: Marybeth Millan Other Providers:: Dr. Michoacano Germain. Dr. Davis. Dr. Salazar Treatment Summary Problem List: All Active Problems (Last Reviewed 10/23/17 @ 10:35 by Dagmar Strickland) GI bleed (Acute) Left VATS procedure with wedge resection KATIE (Acute) port placement (Acute) Educational circumstance (Acute) Cancer of upper lobe of left lung (Acute) Antineopla stic chemotherapy induced anemia (Acute) Constipation (Acute) 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 (Acute) Chemotherapy induced neutropenia (Acute) Anemia (Acute) COPD (chronic obstruct cindy pulmonary disease) (Acute) Dyspnea (Acute) Diabetes (Acute) Neuropathy (Acute) Arthritis (Acute) Obesity (Acute) Alcohol dependence (Acute) GERD (gastroesophageal reflux disease) (Acute) DJD (degene rative joint disease) (Acute) Vascular disease (Acute) Renal disease (Acute) Macular degeneration (Acute) Arrhythmia (Acute) Migraine (Acute) Memory loss (Acute) Hypotestosteronism (Acute) Essential johann mor (Acute) Parkinsons (Acute) Dementia (Acute) HEBER (obstructive sleep apnea) (Acute) Benign essential hypertension (Acute) Hammertoes of both feet (Acute) S/P CABG x 2 (Acute) Cancer Type / Location / Histology Subtype:: Non small cell lung cancer, adenocarcinoma subtype Diagnosis Date [year]:: 05/16/17 Stage:: Not applicable - (T2, NX) Surgery:: Yes Surgery Date[s] [year]:: 05/16/2017 Surgical Proce dure / Location / Findings:: Left VATS procedure with left upper lobe wedge resection. Tumor measured 1.8 cm, tumor grade 3, unifocal, resection margin 0.2 cm, + visceral pleural invasion. Negative for lymphovascular invasion, No LN dissected d/t limited lung reserve. EGFR, ALK negative. Radiation:: No Systemic Therapy [chemotherapy, hormonal therapy, other]:: Yes Name of Agents Used and End Date of U janell:: Carboplatin/Alimta x 4 cycles 07/09/17-09/17/2017 Persistent symptoms of side effects at completion of treatment:: Yes If yes, enter type[s]:: Fatigue, taste disturbance, decreased visual acuity Fo llow-up Care Plan Need for ongoing [adjuvant] treatment for cancer:: No Schedule of Clinical Visits Coordination Provider:: Marybeth Millan When/How often:: 3- 6 months x 2 years, then every 6 months x 3 years, then annually Cancer Surveillance/Other Test Coordination Provider:: Marybeth Millan - CT chest (frequency is determined further by findings) When/How often:: Every 3-6 months x 3 years, the n every 6 months x 2 years, then annually Cancer Surveillance/Symptoms: Please continue to see your primary care provider for all general health care recommended for a M your age, including cancer scree judy tests. Any symptoms should be brought to the attention of your provider: * Anything that represents a brand new symptom * Anything that represents a persistent symptom * Anything you are worried a bout that might be related to the cancer coming back Cancer survivors may experience issues with the areas listed below:: Emotional and mental health, Physical functioning, Memory or concentration loss , Fatigue, Insurance, Parenting, Weight changes, School/Work, Financial Advice or Assistance, Sexual functioning Cancer Survivor Issues - Help: If you have any concerns in these or other areas, please s peak with your doctors or nurses to find out how you can get help with them. Other comments:: Prepared by Giovanni Díaz, MSN, BROWNELL OPERATOR-C, AOCNP. Delivered on 10/23/17 10/23/17 1157 <Electronically si gned by Salina Díaz AUTOMOTIVE PROJECT ENGINEERRamilaC> Date Salinayoselin HarrisBre AUTOMOTIVE PROJECT ENGINEER-C Cosigner Signature: Date (if applicable ) CC: Michoacano Germain MD; Gloria Alvarado DO; Josiah Davis MD; Jv Salazar MD 15-Oct-2017 Oncology Visit Report Result: Comments: See Note; NOTES: [facility] [address] [place] [address] OFFICE VISIT Date of Service: 10/15/17 1046 MR#: [id number] Acct: [id number] Name: JV DURHAM JrAxel Rep #: [id number] : 1945 From: Marybeth Millan MD Age/Sex: 72/M Location: OMD Status: Signed - Problem List (1) 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 Status: Acute (2) Cancer of upper lobe of left lung Status: Acute (3) Anemia Status: Acute - Date of Service Date of Service:: 10/15/17 - Chief Complaint Lung cancer - History of Present Illness Patient is a 71-yea r-old gentleman former smoker quit over 20 years ago with a complicated multiple chronic medical illnesses including severe oxygen dependent COPD, CAD, chronic atrial fibrillation, diabetes, hypertensio n, morbid obesity, DJD, chronic peripheral neuropathy and possible past history of excessive alcohol consumption. In March 2017 a chest x-ray prompted a CAT scan of the chest and then a PET CT which s howed an abnormal left upper lobe nodule measuring 2.3 cm in maximum diameter highly suspicious for malignancy. Due to limited lung reserve the patient went straight to surgery and on 05/16/2017 he under went left VATS procedure with left upper lobe wedge resection that revealed an adenocarcinoma measuring 1.8 cm in maximum diameter. Tumor was grade 3, unifocal, resection margin was 0.2 cm but there was visceral pleural invasion. No lymphovascular invasion was present and no lymph nodes were dissected. Molecular testing revealed EGFR and ALK mutations negative. The patient recovered from his surgery w ithout complications. Treatment: 05/16/2017 left VATS procedure with left upper lobe wedge resection 07/09/2017-09/17/2017 (4 cycles) Adjuvant Carbo-Alimta - Interval History Hospitalized last week of 2017 was acute upper GI bleed, transfused 4 units packed red cells and underwent EGD. Discharged on oral iron and an acid suppressant. Reports from [facility] requested. - Past Medical/ Social History Past Medical History Past Medical History: Anemia,Blood transfusion,COPD,Hyperlipidemia, Hypertension,Sleep apnea Cancer: Lung cancer Social History Social History: No changes Smoking Status Former smoker Review of Systems Constitutional:: Reports: Fatigue. Denies: Fever, Sweats, Weight loss, Appetite change, Chills Cardiovascular:: Reports: Dyspnea on exertion. Denies: Chest pain , Palpitations, Orthopnea, PND, Shortness of breath Respiratory: Reports: Shortness of breath upon exertion. Denies: Cough, Hemoptysis, Shortness of Breath, Wheezing Gastrointestinal:: Reports: Constipa tion - Worse since has been on oral iron, - - Stools are dark colored but not frankly melanotic/tarry. Denies: Abdominal pain, Nausea, Vomiting, Diarrhea, Hematochezia Genitourinary: Denies: Dysuria, He maturia, 15, Flank pain Musculoskeletal:: Denies: Back pain, Myalgia, Arthralgia Skin: Denies: Rash, Skin Changes, Wounds Neurological:: Denies: Headache, Dizziness, Visual changes, Tinnitus, Hearing lo ss Psychiatric: Denies: Anxiety, Depression, Homicidal Ideations, Suicidal Ideations Vital Signs Height 5 ft 10 in Weight: 127.732 kg Weight in Pounds 281.6 lbs Pulse Ox 97 - Physical Exam General: Alert, Oriented x3, No apparent distress, - - ECOG 2 Obese HEENT: Atraumatic, PERRLA, EOMI, Normocephalic Oropharynx:: Dry mucosa Neck:: Supple, Trachea midline, - - Port okay. Negative for: JVD, bilat eral Cardiac:: Normal S1, Normal S2, Irregular rate. Negative for: Murmur Lungs: Clear to auscultation, Diminished, Excusion symmetrical. Negative for: Rhonchi, Wheezes Abdomen:: Soft, Non-tender, Non-d istended. Negative for: Hepatosplenomegaly Extremities:: Edema - 1+ bilateral ankles edema. Negative for: Cyanosis Neurological: Neuro grossly intact Skin:: Ecchymosis. Negative for: Lesions, Rash, Prakash chiae Psychiatric:: Appropriate affect, Euthymic Lymphatics:: Negative for: Cervical lymphadenopathy, Supraclavicular lymphadenopathy, Axillary lymphadenopathy Laboratory Data: CBC, CMP and iron profil e pending Assessment and Plan 72-year-old gentleman ex-smoker with 1- Adenocarcinoma of the right upper lobe status post wedge resection in May 2017 due to limited pulmonary reserve. Disease is T2NX. PET scanning 2017 did not suggest systemic metastatic disease. Adverse prognostic factors for his disease include a limited resection to wedge resection, visceral pleural involvement, and unknown storm status. Concluded 4 cycles of adjuvant carbo Alimta (June - September 2017) Main toxicity experienced was bone marrow suppression. We will go on surveillance, CT scan chest and abdomen (to include the entire liver and adrenal glands) in 3 months. 2-iron deficiency anemia due to chronic GI blood loss and an acute GI bleed in September 2017. On oral iron experiencing increasing constipation and discol oration of the stool that can mask recurrent GI bleed therefore will reassess iron status and if deficient will give IV iron rather than oral at least for the next 3 months. Patient has multiple chroni c medical conditions including morbid obesity, severe oxygen dependent COPD, CAD, chronic atrial fibrillation, DJD, peripheral neuropathy (predates chemotherapy). Ipression and recommendation discussed with patient Medications: Prescriptions This Visit Medication Instructions Recorded Lidocaine/Prilocaine 30 gm TP DAILY PRN PRN #1 cream..g. 06/25/17 [Lidocaine- Prilocaine Cream] Primary Care Provide r: Gloria Alvarado DO Referring Provider: Marybeth Millan MD 10/15/17 1139 <Electronically signed by Marybeth Millan MD> Date Marybeth calloway MD Cosigner Signature: Date (if applicable) CC: Gloria Alvarado DO 06-Oct-2017 Chest PA and Lateral Result: Comments: See Note; NOTES: [facility] Imaging Services [address] [place] [address] Chest PA and Lateral MR#: [id number] Acct: [id number] Name: JV DURHAM Jr. Rep #: [id number] : 1945 M 72 From: Kee Burkett MD PCP: Gloria Alvarado DO Status: REG CLI Study: Chest PA and Lateral Date of Exam: 10/06/17 Exam# [id number] Ordering Dr: Gloria Alvarado DO STUDY: X-RAY CH EST REASON FOR EXAM: Male, 72 years old. Cough x1 week, history of left lung cancer TECHNIQUE: PA and lateral views of the chest. COMPARISON: Previous study of 09/29/2017 FINDINGS: There is a right-sided MediPort with catheter tip in the region of the mid SVC. There are postsurgical changes of the left upper lobe. There is hemidiaphragmatic flattening which may be associated with COPD. Left apical pleural thickening is seen. There is mild cardiac enlargement. Status post sternotomy changes are noted. Normal mediastinum and yovanny. Normal visualized pulmonary ar teries. There are calcified plaques of the thoracic aorta. Normal visualized thoracic spine. Normal visualized ribs, clavicles, and shoulders. There is no demonstrated abnormality of the visualized so ft tissue structures of the upper abdomen. RAD/Chest PA and Lateral IMPRESSION: 1. Right-sided Mediport with catheter tip in the region of the mi d SVC. 2. Status post surgical changes of the left upper lobe. Left apical pleural thickening. 3. Hemidiaphragmatic flattening which may be associated with COPD. 4. Mild cardiomegaly. Status post sterno derek. 5. Calcified plaques of the thoracic aorta. 6. Findings are similar to the previous study. Electronically Signed: Kee Burkett MD at 16:18 EDT , Service support , CC: Gloria Alvarado DO Screening Technician: Signed 05-Oct-2017 12 Lead Electrocardiogram Result: Comments: See Note; NOTES: [facility] Cardiovascular Services [address] [place] [address] 12 Lead EKG 09/29/17 1619 MR#: [id number] Acct: [id number] Name: JV DURHAM Jr Rep #: [id number] : 1945 72 From: Michoacano Germain MD Attending Dr: Status: DEP ER Ordering Dr: Alma Delia Zavala DO Date: 09/29/17 Location: ED Sex: M C Admitted: Test Reason : CP Blood Pressure : / mmHG Vent. Rate : 094 BPM Atrial Rate : 166 BPM P-R Int : 000 ms QRS Dur : 086 ms QT Int : 362 ms P-R-T Axes : 000 -14 120 degrees QTc Int : 452 ms Atrial fibrillation Marked ST abnormality, po ssible inferior subendocardial injury Abnormal ECG Confirmed by MICHOACANO GERMAIN ([id number]), editor magazine ALEXIS RO ([id number]) on 10/02/2017 2:39:03 PM Referred By: Gloria Alvarado Confirmed By:MICHOACANO GERMAIN 10/02/17 1439 Date Michoacano Germain MD CC: Gloria Alvarado DO; Alma Delia Zavala DO Signed 29-Sep-2017 Emergency Department Summary Result: Comments: See Note; NOTES: [facility] Medical Records Department [address] [place] [address] Emergency Department Summary 09/29/17 1845 MR#: [id number] Acct: [id number] Name: JV DURHAM Jr. Rep #: [id number] : 1945 72 From: Alma Delia Zavala DO PCP: Gloria Alvarado DO Status: REG ER - ER Visit Summary Date of Service: 09/29/17 Chief Complaint: [Shortness of breath] Hi story of Present Illness: The patient is a 72 M [presents the emergency department with dyspnea it has been ongoing for approximately 1 week but worse over last 2 days. Patient started noticing some ele ck stool 2 days ago. Patient feels generally weak and lightheaded with standing. Patient also has had some intermittent chest discomfort that usually resolves after patient uses oxygen. Patient does hav e a history of lung cancer and is undergoing chemotherapy with his last chemo treatment about 2 weeks ago. Patient also has a history of COPD, Parkinson's, and atrial fibrillation. Patient is on Xarelto .] Patient has had some intermittent nosebleeds as well. Physical Examination: [HEENT-PERRLA, EOMI. Cranial nerves II through XII grossly intact. TMs clear. Mucous membranes moist. No adenopathy. Patie nt is pale appearing Cardiovascular- irregular with a 2 out of 6 systolic ejection murmur noted. Lungs-clear to auscultation, chest wall stable without crepitus or subcu emphysema Abdomen-normoactive bowel sounds, soft, nontender, no rebound or rigidity, no peritoneal signs. There was black tarry stool that was Hemoccult positive Extremities-intact 4, normal range of motion, normal pulses, atrauma tic] Test Results: [EKG obtained showed atrial fibrillation with a ventricular rate of [address] changes when compared with prior EKG from January 02, 2017 no new changes noted. CBC with differential was showed a hemoglobin of 5.0, hematocrit 16, WBCs 4.6, platelet count 44. Chemistries unremarkable. Troponin was 0.12. Hemoccult positive. Chest x-ray showed chronic changes otherwise not miranda acute.] Emergency Department Course and Treatment: [Patient was typed and crossed for 2 units packed red blood cells.] Treatment Plan: [We do not have GI coverage available at [facility] therefore p josé will be transferred to [facility].] Disposition: [Transfer] Impression: [Anemia Upper GI hemorrhage Indeterminant troponin elevation] This note was generated with Conmio software. It may contain incorrect words, spelling, and punctuation that were not noted in review of the chart prior to signing ED Disposition - Plan for ED Patient: Chief Complaint: Shortness of Breath Referrals: Fast,Gloria, DO [Primary Care Provider] - What to do if you have Problems For any increased pain, shortness of breath, bleeding, nausea or vomiting, chest pain, or any unexpected p roblems, contact your Primary Care Provider. Call [facility] ([phone]) or report to the closest Emergency Room. Call 911 if necessary. 09/29/17 1850 <Electronically signed by Alma Delia Zavala DO> Date Alma Delia Zavala DO Cosigner Signature (If Indicated): Date CC: Gloria Alvarado DO 29-Sep-2017 Chest 1 View (Portable) Result: Comments: See Note; NOTES: [facility] Imaging Services [address] [place] [id number] Chest 1 View (Portable) MR#: [id number] Acct: [id number] Name: JV DURHAM Jr. Rep #: [id number] : 1945 M 72 From: Anastasia Fonseca MD PCP: Gloria Alvarado DO Status: REG ER Study: Chest 1 View (Portable) Date of Exam: 09/29/17 Exam# [id number] Ordering Dr: Alma Delia Zavala DO STUDY: X-RAY C HEST REASON FOR EXAM: Male, 72 years old. Dyspnea shortness of breath chest pain TECHNIQUE: Single AP portable view of the chest. COMPARISON: July 08, 2017 chest x-ray FINDINGS: There is a right-sided portacatheter tip is in the superior vena cava. Interstitial markings are minimally prominent at the lung bases. There is vascular prominence. There are upper lobe is limited as blebs. There is postoperative change in the left apex. Sternal cerclage wires are present from a prior sternotomy. Normal mediastinum and yovanny. Normal visualized pulmonary arteries. There is atherosclerotic calcification of the aortic arch with tortuosity. There are diffuse degenerative changes of the visualized thoracic spine. Normal visualized ribs, clavicles, and shoulders. Th ere is no demonstrated abnormality of the visualized soft tissue structures of the upper abdomen. RAD/Chest 1 View (Portable) IMPRESSION: Status post sternotomy. Cardiomegaly. Port-A-Cath. Findings suggestive minimal vascular congestion. Lower lobe atelectasis and upper lobe emphysema change chronic obstructive pulmonary disease. Postoperative changes left apex. Electronically Signed: Anastasia Fonseca MD at 17:12 EDT Tel , Service support , CC: Gloria Alvarado DO; Alma Delia Zavala DO Screening Technician: Signed 25-Sep-2017 Cardiology Visit Report Result: Comments: See Note; NOTES: [facility] [address] [place] [address] OFFICE VISIT Date of Service: 09/25/17 MR#: [id number] Acct: [id number] Name: MARVAJV Jr. Rep #: [id number] : 1945 Provider: Michoacano Germain MD Age/Sex: 72/M Location: [facility] [place] Status: Signed HPI HPI Chief Complaint: Routine f/u Details: This is 72-year-old male who presents for cardiovascular outpatient follow-up. He has a history of hypertension, morbid obesity, hyperlipidemia, and coronary artery disease with previous bypass surgery in 2005 which included a HERRERA to the LAD a nd SVG to the obtuse marginal. In 2006 he underwent stenting to the anastomotic site of the HERRERA to the LAD as well as angioplasty to the PDA. Other pertinent history includes Parkinson's disease, frequ ent falls, COPD, and obstructive sleep apnea. ECG from November 20, 2016 show atrial fibrillation with a rate of 80 bpm. Echocardiogram from November 2016 showed moderate concentric left ventricular hypertroph y, estimated ejection fraction 45%, mild to moderate global hypokinesis of the left ventricle, D-shaped septum in diastole, severely dilated right ventricle, moderate global right ventricular systolic d ysfunction, severely enlarged left atrium, severely enlarged right atrium, mild mitral valve insufficiency, mild tricuspid valve insufficiency, RVSP of 60 mmHg., Moderate pulmonary hypertension. Decemb er 2012 patient had right common iliac stent placement and left common iliac stent placement at [facility]. Heart cath from April 2013 showed normal LV size and function with an EF of 65%, show ed widely patent HERRERA to LAD with a patent distal HERRERA to the LAD anastomotic stents, widely patent saphenous vein graft to obtuse marginal system, minimal nonobstructive disease of the right coronary a rtery no evidence of restenosis of the previous balloon angioplasty site in the PDA. At that time it was noted to have a lesion of right common iliac. From a cardiac standpoint he is doing well. Pt den ies chest discomfort. Their exercise tolerance is stable. Pt denies symptoms of CHF, palpitations, lightheadedness, dizziness, near syncopal or syncopal episodes. Pt denies edema or claudication issues. Pt. denies any fever or chills. Pt. denies pain in abdomen, jaw, or arm. Patient states shortness of breath is improved with lasix. Pt. wears oxygen at night, but no CPAP machine. We attempted DC card ioversion in the past, but unfortunately this was unsuccessful. Patient now returns for routine follow-up. The patient has had several mechanical falls but no syncope. When the patient walks with a can e he adds tendency to fall, but when he walks with a walker he is fine. He is awaiting surgical evaluation of his right lower extremity for possible knee surgery so that he can walk better. He remains o n anticoagulation therapy for his chronic atrial fibrillation. Since her last visit, the patient was diagnosed with lung cancer on the left side and underwent a wedge resection after his Xarelto was he ld. His Xarelto was restarted, and he has undergone 4 out of 4 doses of chemotherapy the last one being a week ago. The chemotherapy was due to the fact that the surgeon was unable to assess his lymph n odes, and was done for precautionary reasons. He received no radiation therapy. He has required several transfusions, and occasionally has nosebleeds when his platelets go down. He denies any exertional chest pain, angina but does have dyspnea when his hemoglobin count goes down. As best he can tell he has no metastases on PET scanning, and is on chronic O2 therapy at this time. Patient was in his he matologist office yesterday and was found to have profound hypotension with systolic pressures in the 70s. He was given a 500 cc bolus and had an episode of nausea and vomiting. Patient's valsartan and Lopressor were held however his Lasix was continued. At that time a CBC showed a hemoglobin of 8.8, platelets of 72,000. His differential demonstrates a microcytic iron deficient anemia. He is currently on ferrous sulfate. In office today his blood pressure is, standing is 78/42 with a pulse of 120 and irregular 98/46 pulse is 96 and irregular. His physical exam Is as below. His lipids As of 12/23/16 showed LDL of 94 and an HDL of 53. Lipids as of 08/13/17 show an HDL of 25 and LDL of 19. Intake Vital Signs09/25/17 Blood Pressure 78/42 09/25/17 Blood Pressure Position Standing 09/25/17 Pulse Rate 12 0 Intake Visit Reasons: per PK Allergies No Known Allergies Allergy (Verified 09/25/17 15:16) Medications Cyanocobalamin (Vitamin B-12) [Vitamin B-12] 1,000 mcg PO DAILY 05/06/13 [History Confirm ed 09/25/17] Docusate Sodium [Colace] 100 mg PO BID 05/06/13 [History Confirmed 09/25/17] Fenofibrate [Tricor] 145 mg PO DAILY 05/06/13 [History Confirmed 09/25/17] Folic Acid 1 mg PO DAILY@0800 3 [History Confirmed 09/25/17] Potassium Chloride [Klor-Con 10] 20 meq PO BID 05/06/13 [History Confirmed 09/25/17] Tiotropium Flora [Spiriva 18 MCG] 1 puff INHALATION DAILY 05/06/13 [History Confirme d 09/25/17] Valsartan [Diovan] 80 mg PO DAILY 05/06/13 [History Confirmed 09/25/17] Vit A/Vit C/Vit E/Zinc/Copper [Icaps Areds Formula Tablet] 1 ea PO BID 05/06/13 [History Confirmed 09/25/17] Duloxetin e HCl 60 mg PO QHS 12/04/16 [History Confirmed 09/25/17] Gabapentin [Neurontin] 600 mg PO QHS 12/04/16 [History Confirmed 09/25/17] Pramipexole Di-HCl [Mirapex] 0.5 mg PO TID 12/04/16 [History Confirmed 09/25/17] Budesonide 0.25 mg IH BID 01/01/17 [History Confirmed 09/25/17] Formoterol Fumarate [Perforomist] 20 mcg INHALATION BID 01/01/17 [History Confirmed 09/25/17] Digoxin 250 mcg PO DAILY 02/27/17 [History Confirmed 09/25/17] Lidocaine/Prilocaine [Lidocaine-Prilocaine Cream] 30 gm TP DAILY PRN PRN #1 cream..g. 06/25/17 [Rx Confirmed 09/25/17] ferrous sulfate 325 mg (65 mg iron) tablet 325 mg PO DAILY 08/14/17 [History Confirmed 09/25/17] Rivaroxaban [Xarelto] 20 mg PO DAILY 09/24/17 [History Confirmed 09/25/17] furosemide 40 mg tablet 40 mg PO BID tab 09/25/17 [History Confirmed 09/25/17] meto prolol tartrate 100 mg tablet 50 mg PO QDAY tab 09/25/17 [History Confirmed 09/25/17] pravastatin 40 mg tablet 40 mg PO QHS 09/25/17 [History Confirmed 09/25/17] [facility] Medical History (Reviewed @ 15:16 by Rach Butcher) Secondary pulmonary arterial hypertension (Chronic) Atherosclerosis of coronary artery of [place] heart without angina pectoris (Chronic) 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 (Acute) Chemotherapy induced neutropenia (Acute) Anemia (Acute) COPD (chronic obstructive pulmonary disease) (Acute) Dyspnea (Acute) Diabetes (Acute) Neuropathy (Acute) Arthritis (Ac atka) Obesity (Acute) Alcohol dependence (Acute) GERD (gastroesophageal reflux disease) (Acute) DJD (degenerative joint disease) (Acute) Vascular disease (Acute) Renal disease (Acute) Macular degeneratio n (Acute) Arrhythmia (Acute) Migraine (Acute) Memory loss (Acute) Hypotestosteronism (Acute) Essential tremor (Acute) Parkinsons (Acute) Dementia (Acute) HEBER (obstructive sleep apnea) (Acute) Benign ess ential hypertension (Acute) Hammertoes of both feet (Acute) port placement (Acute) History of left heart catheterization (Acute 12/04/16) Chronic atrial fibrillation (Chronic) Surgical History (Revie wed 09/25/17 @ 15:16 by Rach Butcher) H/O coronary artery bypass surgery (Chronic 02/14/06) S/P CABG x 2 (Acute) Left VATS procedure with wedge resection KATIE (Acute) History of cardioversion (Chroni c 12/2016) History of coronary artery stent placement (Chronic 12/23/06) angiolasty and stenting to BLE iliac arteries (Chronic 08/04/12) Family History Sister Alcoholism Cancer Mother Arthritis Father Arthritis Brother Cancer Social History Smoking Status: Former smoker second hand exposure: No alcohol intake: never substance use type: does not use caffeine: No what type of physical activity do you participate in: none frequency: does not exercise seatbelt use: always ROS Const Const: Positive for fatigue and weakness; negative for di fficulty sleeping, excessive sweating, frequent falls or headache(s) Eyes Eyes: Negative for loss of peripheral vision, transient loss of vision, blurry vision or double vision ENT ENT: Positive for Nos ebleed/epistaxis (frequent nose bleeds.) and dizziness; negative for balance problems or headache(s) Cardio Chest Pain: No Edema: None Muscle aches with walking: None Resp Respiratory: Negative for SOB with activity, SOB at rest, SOB orthopnea\SOB lying down or paroxysmal nocturnal dyspnea Additional Details: continuous O2 GI GI: Negative nausea or heartburn : Negative for hematuria Musc Musc: Ne gative for muscle aches/ myalgia, muscle weakness, joint pain or balance problems Skin Skin: Negative non-healing lesions, unusual bruising or rash Neuro Neuro: Positive for lightheadedness, orthostatic symptoms, weakness and dizziness; negative for blurry vision, double vision, frequent falls or headache(s) Chivo Hematologic/Lymphatic: Negative for easy bruising Endo Endo: Positive for fatigue; negati ve for increased thirst/drinking or excessive sweating Psych Psych: Negative for anxiety or depression Allergy Allergy/Immunology: Negative for hives, Negative for rash Cardiology Exam Const Appearanc e: cooperative, healthy appearing and no acute distress Nutritional Appearance: well nourished Orientation: alert, oriented x3 and oriented to person Head Head: normal to inspection, atraumatic and norm ocephalic Nose: external nose normal Face and Sinus: face symmetric Mouth: oral mucosae normal Eyes General: appearance normal, both eyes and all related structures Eyelids: eyelids normal Conjunctivae: conjunctivae normal Pupils: PERRL and normal by confrontation EOM: EOM intact bilaterally Neck Neck: normal visual inspection and full ROM Carotids: normal carotid upstroke Chest Chest inspection: norm al inspection of the chest Auscultation: Bilateral: Clear to Auscultation Cardio Palpation: normal PMI Rate: regular rate Rhythm: irregular rhythm Heart sounds: S1 normal and S2 normal GI GI: normal to inspection, no hepatosplenomegaly and bowel sounds present Neuro General: alert, oriented x3, awake, CN's II-XI intact bilaterally and moves all extremities Skin Skin: no rashes or lesions noted Extremi ties Pulses: Normal: Right Femoral Pulse, Left Femoral Pulse, Right Dorsalis Pedis Pulse, Left Dorsalis Pedis Pulse, Right Posterior Tibial Pulse, Left Posterior Tibial Pulse, Right Radial Pulse, Left R adial Pulse Lower Extremity Edema: None: Bilateral Psych Psychological: normal affect Assessment AND Plan 1. Atherosclerosis of coronary artery of [place] heart without angina pectoris I25.10 CABG x 2 HERRERA-LAD, SVG-OM 02/14/2006 [id number] anastomosis-LAD w/ Taxus 2.75 x 8 mm and POBA-PDA 12/23/2006 Plan 1. Coronary artery disease: No anginal symptoms at this time. I believe the patient's primary str uggle is his hypotension due to a combination of chemotherapy, anemia, as well as polypharmacy with antihypertensive therapy with respect to his coronary disease, mild LV dysfunction, and pulmonary hype rtension. The patient's valsartan and metoprolol were held by his hematology oncologist yesterday, and his blood pressure still remains somewhat low particularly with positional changes. He is still or thostatic. I recommended that he continue to hold his valsartan and metoprolol at this time and hold his Lasix at least until this upcoming 09/29/17. At that time he will restart Lasix 40 mg earnest ly only, valsartan 40 mg a day, and Toprol 25 mg a day. He will return in 1 week's time for a blood pressure check. We may need to gradually increase his antihypertensives as his hemoglobin improves. He requires no further chemotherapy at this time. I do not believe he requires a repeat echocardiogram as I can hear no murmurs or rubs at this time. This may be necessary given his lung cancer if his bl ood pressure does not improve. 2. Arrhythmia I49.9 Plan 2. Atrial fibrillation: The patient has chronic persistent atrial fibrillation refractory to DC cardioversion. He has had several nosebleeds but they appear to be well controlled. I advised the patient to humidify his oxygen and CPAP at home to avoid drying out his nasal pathways. I think it is reasonable to continue baby aspirin and Xarelto for now unless he has continued persistent nosebleeds, or platelets less than 50,000. Patient is at high risk for pulmonary embolism given his moderate pulmonary hypertension, sedentary lifestyle, recent c ancer so I would not discontinue his anticoagulation unless absolutely necessary. 3. Hyperlipidemia: Continue Pravachol. 4. Return office in 1 month and 6 months. This note was generated using a voice recognition system and there may be incorrect words, spelling or punctuation that were not noted when reviewing the office note prior to saving. Plan Detail Other Medications Discontinued: prochlorper azine maleate Discontinued Reason:10 mg PO Q6H PRN PRN Nausea C34.12, R11.0 Pt no longer taking Follow Up +6m (Jose) +1 week (BP Check.) +1 month (Jose or EFREN) Coding Level of Care Code Off vis,e st,level 3 Diagnoses Atherosclerosis of coronary artery of [place] heart without angina pectoris I25.10 Arrhythmia I49.9 Coding Level of Care Code Off vis,est,level 3 Diagnoses Atherosclerosis of cor onary artery of [place] heart without angina pectoris I25.10 Arrhythmia I49.9 09/25/17 1605 <Electronically signed by Michoacano Germain MD> Date ____ Michoacano Germain MD Cosigner Signature: Date (if applicable) CC: Gloria Alvarado DO 4-Sep-2017 Oncology Visit Report Result: Comments: See Note; NOTES: [facility] [address] [place] [address] OFFICE VISIT Date of Service: 09/17/17 1028 MR#: [id number] Acct: [id number] Name: JV DURHAM Jr. Rep #: [id number] : 1945 From: Marybeth Millan MD Age/Sex: 71/M Location: OMD Status: Signed - Problem List (1) 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 Status: Acute (2) Cancer of upper lobe of left lung Status: Acute (3) Anemia Status: Acute - Date of Service Date of Service:: 09/17/17 - Chief Complaint Lung cancer on adjuvant chemotherapy - History of Present Ill ness Patient is a 71-year-old gentleman former smoker quit over 20 years ago with a complicated multiple chronic medical illnesses including severe oxygen dependent COPD, CAD, chronic atrial fibrillati on, diabetes, hypertension, morbid obesity, DJD, chronic peripheral neuropathy and possible past history of excessive alcohol consumption. In March 2017 a chest x-ray prompted a CAT scan of the chest and then a PET CT which showed an abnormal left upper lobe nodule measuring 2.3 cm in maximum diameter highly suspicious for malignancy. Due to limited lung reserve the patient went straight to surgery and on 05/16/2017 he underwent left VATS procedure with left upper lobe wedge resection that revealed an adenocarcinoma measuring 1.8 cm in maximum diameter. Tumor was grade 3, unifocal, resection margin was 0.2 cm but there was visceral pleural invasion. No lymphovascular invasion was present and no lymph nodes were dissected. Molecular testing revealed EGFR and ALK mutations negative. The patient rec overed from his surgery without complications. Treatment: 05/16/2017 left VATS procedure with left upper lobe wedge resection 07/09/2017- Adjuvant Carbo-Alimta - Past Medical/Social History Past Medical History Past Medical History: Anemia,Blood transfusion,COPD,Hyperlipidemia, Hypertension,Sleep apnea Cancer: Lung cancer Social History Social History: No changes Smoking Status Former smoker Rev iew of Systems Constitutional:: Reports: Weakness, Fatigue - Better after blood transfusion. Denies: Fever, Sweats, Weight loss, Appetite change, Chills Cardiovascular:: Reports: Dyspnea on exertion. De nies: Chest pain, Palpitations, Orthopnea, PND, Shortness of breath Respiratory: Reports: Shortness of breath upon exertion. Denies: Cough, Hemoptysis, Shortness of Breath, Wheezing Gastrointestinal:: D enies: Abdominal pain, Nausea, Vomiting, Diarrhea, Constipation, Hematochezia Genitourinary: Denies: Dysuria, Hematuria, 15, Flank pain Musculoskeletal:: Denies: Back pain, Myalgia, Arthralgia Skin: Den ies: Rash, Skin Changes, Wounds Neurological:: Denies: Headache, Dizziness, Visual changes, Tinnitus, Hearing loss Psychiatric: Denies: Anxiety, Depression, Homicidal Ideations, Suicidal Ideations Vital Signs Height 5 ft 10 in Weight: 130.362 kg Weight in Pounds 287.4 lbs Pulse Ox 96 - Physical Exam General: Alert, Oriented x3, No apparent distress, - - Morbidly obese ECOG 2 HEENT: Atraumatic, PE RRLA, EOMI, Normocephalic Oropharynx:: Dry mucosa Neck:: Supple, Trachea midline, - - Port okay. Negative for: JVD, bilateral Cardiac:: Regular rate, Regular rhythm, Normal S1, Normal S2. Negative for: Murmur Lungs: Clear to auscultation, Excusion symmetrical. Negative for: Rhonchi, Wheezes Abdomen:: Bowel sounds x 4, Soft, Non-tender, Non-distended. Negative for: Hepatosplenomegaly Extremities:: Nega tive for: Cyanosis, Edema Neurological: Neuro grossly intact Skin:: Negative for: Lesions, Rash, Petechiae, Ecchymosis Psychiatric:: Appropriate affect, Euthymic Lymphatics:: Negative for: Cervical lymp hadenopathy, Supraclavicular lymphadenopathy, Axillary lymphadenopathy Laboratory Data: Reviewed in EMR Assessment and Plan 71-year-old gentleman ex-smoker with adenocarcinoma of the right upper lobe status post wedge resection in May 2017 due to limited pulmonary reserve. Disease is T2NX. PET scanning 2017 did not suggest systemic metastatic disease. Adverse prognostic factors for his disease include a limited resection to wedge resection, visceral pleural involvement, and unknown storm status. Patient is status post 3 out of 4 planned cycles Main toxicity experienced is bone marrow with severe transfusion requiring anemia at anshu counts that improved after transfusion was packed red blood cells despite reducing carboplatin dose from AUC of 6 down to 5. Start C4/4 today and further re ducing carboplatin dose to AUC of 4 to avoid excessive bone marrow toxicity and F/U in 3W. Will monitor blood counts weekly and transfuse again if needed Patient has multiple chronic medical conditions including morbid obesity, severe oxygen dependent COPD, CAD, chronic atrial fibrillation, DJD, peripheral neuropathy (predates chemotherapy). Ipression and recommendation discussed with patient Medicat ions: Prescriptions This Visit Medication Instructions Recorded Primary Care Provider: Gloria Alvarado DO Referring Provider: Marybeth Millan MD 09/17/17 1048 <Electronically signed by Malik Millan MD> Date Marybeth Millan MD Cosigner Signature: Date (if applicable) CC: 10-Sep-2017 Oncology Visit Report Result: Comments: See Note; NOTES: [employer] [facility] [address] [place] [id number] OFFICE VISIT Date of Service: 09/10/17 0958 MR#: [id number] Acct: [id number] Name: MARVAJV Merary Greer Rep #: [id number] : 1945 From: Salina MONIQUE Age/Sex: 71/M Location: ONC Status: Signed Subjective - Date of Service Date of Service:: 09/10/17 - Chief Complaint NSCLC on treatm ent - History of Present Illness Patient is a 71-year-old gentleman former smoker quit over 20 years ago with a complicated multiple chronic medical illnesses including severe oxygen dependent COPD, C AD, chronic atrial fibrillation, diabetes, hypertension, morbid obesity, DJD, chronic peripheral neuropathy and possible past history of excessive alcohol consumption. In March 2017 a chest x-ray prom pted a CAT scan of the chest and then a PET CT which showed an abnormal left upper lobe nodule measuring 2.3 cm in maximum diameter highly suspicious for malignancy. Due to limited lung reserve the jami ent went straight to surgery and on 05/16/2017 he underwent left VATS procedure with left upper lobe wedge resection that revealed an adenocarcinoma measuring 1.8 cm in maximum diameter. Tumor was grade 3, unifocal, resection margin was 0.2 cm but there was visceral pleural invasion. No lymphovascular invasion was present and no lymph nodes were dissected. Molecular testing revealed EGFR and ALK mutati ons negative. The patient recovered from his surgery without complications. Treatment: 05/16/2017 left VATS procedure with left upper lobe wedge resection 07/09/2017- Adjuvant Carbo-Alimta - Interval Hi story The patient is presenting to clinic accompanied by spouse for an evaluation anticipating he will receive cycle 4 carboplatin/Alimta. Required PRBC transfusion last week. States I am feel ing much better referencing energy levels and improvement of exertional dyspnea. Denies dizziness, headaches, CP, palpitations, abd pain, N/V and swelling/pain of extremities. Appetite good, PO fluid intake adequate. Taking one whey protein smoothie/day. Taking folic acid as advised. Constipation improved, LBM 09/10/17. BMs daily but occasionally difficult to pass. Improved with addition of se nna jelly. Back on Xarelto, denies any episodes of bruising and overt bleeding. - Past Medical/Social History Past Medical History Past Medical History: Anemia,Blood transfusion,COPD,Hyperlipidemia, Hyp ertension,Sleep apnea Cancer: Lung cancer Social History Social History: No changes Smoking Status Former smoker Review of Systems Constitutional:: Reports: Fatigue. Denies: Fever, Sweats, Weight l oss, Appetite change, Chills Cardiovascular:: Denies: Chest pain, Palpitations, Dyspnea on exertion, Orthopnea, PND, Shortness of breath Respiratory: Denies: Cough, Hemoptysis, Shortness of Breath, Whee zing Gastrointestinal:: Reports: Constipation. Denies: Abdominal pain, Nausea, Vomiting, Diarrhea, Hematochezia Genitourinary: Denies: Dysuria, Hematuria, 15, Flank pain Musculoskeletal:: Denies: Back p ain, Myalgia, Arthralgia Skin: Denies: Rash, Skin Changes, Wounds Neurological:: Denies: Headache, Dizziness, Visual changes, Tinnitus, Hearing loss Psychiatric: Denies: Anxiety, Depression, Homicidal I deations, Suicidal Ideations Vital Signs Height 5 ft 10 in Weight: 287 lb 6.4 oz Weight in Pounds 287.4 lbs Pulse Ox 93 - Physical Exam General: Alert, Oriented x3, No apparent distress HEENT: Atra umatic, Normocephalic Oropharynx:: Negative for: Dry mucosa, Ulcerated lesions Neck:: Supple, Trachea midline. Negative for: JVD, bilateral Cardiac:: Regular rate, Regular rhythm Lungs: Excusion symmetr ical. Negative for: Rhonchi, Wheezes, Increased respiratory effort Abdomen:: Bowel sounds x 4, Soft, Non-tender, Non-distended. Negative for: Hepatosplenomegaly - difficult to discern d/t large body hab itus Extremities:: Negative for: Cyanosis, Edema Neurological: Neuro grossly intact Skin:: - - Port access with gripper covered with DSD. 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 Disease is T2NX. PET scanning 2017 did not suggest systemic metastatic disease. Adverse prognostic factors for his disease include a limited resection to wedge resection, visceral pleural involvement, and unknown storm status. 1. NSCLC, adenocarcinoma subtype (pT2a, NX) - Has completed 3 /4 proposed cycles of adjuvant carboplatin/Alimta, carboplatin dose attenuated (AUC 5) d/t myelosuppression with cycle 3. Tolerating fair with the exception of continued myelosuppression as discussed be low. Chemotherapy held due to continued anemia. Will be due for B12 injection next week. Patient educated on importance of continuing folic acid daily. 2. Chemotherapy induced myelosuppression-continue s as evidenced by hemoglobin 7.6 although platelet count has improved. He will receive 1 unit PRBCs. 3. Constipation-improved. To continue Colace, senna-jelly and increased PO fluid intake. Activity has been limited d/t fatigue associated with severe anemia. Comorbidities: multiple chronic medical conditions including morbid obesity, severe oxygen dependent COPD, CAD, chronic atrial fibrillation, DJD , peripheral neuropathy (predates chemotherapy). Return to clinic in 1 week will consider for fourth and final cycle of carboplatin and Alimta. Salina Díaz, MSN, BROWNELL OPERATOR-C, AOCNP Medications: Presc riptions This Visit Medication Instructions Recorded Primary Care Provider: Gloria Alvarado DO Referring Provider: Marybeth Millan MD - Problem List (1) 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 Status: Acute (2) Antineoplastic chemotherapy induced anemia Status: Acute (3) Constipation Status: Acute Qualifiers: Constipation type: other constipation type Qualified Code(s): K59.09 - Ot er constipation 09/10/17 1312 <Electronically signed by Salina MONIQUE> Date Salina MONIQUE Cosigner Signature: Date ____ (if applicable) CC: 01-Sep-2017 Oncology Visit Report Result: Comments: See Note; NOTES: [facility] [address] OFFICE VISIT Date of Service: 09/01/17 1306 MR#: [id number] Acct: [id number] Name: JV DURHAM JrAxel Rep #: [id number] : 1945 From: Salina MONIQUE Age/Sex: 71/M Location: OMD Status: Signed Subjective - Date of Service Date of Service:: 09/01/17 - Chief Complaint Acute visit- Fa tigue - History of Present Illness Patient is a 71-year-old gentleman former smoker quit over 20 years ago with a complicated multiple chronic medical illnesses including severe oxygen dependent COPD, CAD, chronic atrial fibrillation, diabetes, hypertension, morbid obesity, DJD, chronic peripheral neuropathy and possible past history of excessive alcohol consumption. In March 2017 a chest x-ray pr ompted a CAT scan of the chest and then a PET CT which showed an abnormal left upper lobe nodule measuring 2.3 cm in maximum diameter highly suspicious for malignancy. Due to limited lung reserve the pa tient went straight to surgery and on 05/16/2017 he underwent left VATS procedure with left upper lobe wedge resection that revealed an adenocarcinoma measuring 1.8 cm in maximum diameter. Tumor was grad e 3, unifocal, resection margin was 0.2 cm but there was visceral pleural invasion. No lymphovascular invasion was present and no lymph nodes were dissected. Molecular testing revealed EGFR and ALK muta tions negative. The patient recovered from his surgery without complications. Treatment: 05/16/2017 left VATS procedure with left upper lobe wedge resection 07/09/2017- Adjuvant Carbo-Alimta - Interval History The patient is presenting to clinic accompanied by spouse for an acute visit at his request. C/o fatigue and lethargy. Denies CP, palpitations and dizziness. Describes feeling very wea k and c/o increased exertional dyspnea. Received cycle 3 carboplatin/Alimta on 08/20/17. Required 1 unit PRBCs on 08/28/17 for Hgb of 7.3. Reports he developed epistaxis yesterday which prompted p resentation to [facility] ED for management. Right nare was packed. Asked to hold Xarelto x 2 days and began Keflex. Appointment with ENT, Dr. Prescott on 09/03 for removal. Spouse states they discussed antic oagulation with Dr. Germain and plans to be held for approx 5 days. Otherwise, denies any episodes of overt bleeding although admits he is bruising easily. - Past Medical/Social History Past Medical His tory Past Medical History: Anemia,Blood transfusion,COPD,Hyperlipidemia, Hypertension,Sleep apnea Cancer: Lung cancer Social History Social History: No changes Smoking Status Former smoker Review of Systems Constitutional:: Reports: Weakness, Fatigue. Denies: Fever, Sweats, Weight loss, Appetite change, Chills Cardiovascular:: Denies: Chest pain, Palpitations, Dyspnea on exertion, Orthopnea, PND , Shortness of breath Respiratory: Reports: Shortness of Breath. Denies: Cough, Hemoptysis, Wheezing Gastrointestinal:: Reports: Constipation - LBM 08/30/17. Denies: Abdominal pain, Nausea, Vomiting, Rochelle rrhea, Hematochezia Genitourinary: Denies: Dysuria, Hematuria, 15, Flank pain Musculoskeletal:: Denies: Back pain, Myalgia, Arthralgia Skin: Denies: Rash, Skin Changes, Wounds Neurological:: Reports: Nu mbness, Tingling, Muscle weakness. Denies: Headache, Dizziness, Visual changes, Tinnitus, Hearing loss Psychiatric: Denies: Anxiety, Depression, Homicidal Ideations, Suicidal Ideations Vital Signs Heig ht 5 ft 10 in Weight: 295 lb Weight in Pounds 295.0 lbs Pulse Ox 100 - Physical Exam General: Alert, Oriented x3, No apparent distress HEENT: Atraumatic, Normocephalic Oropharynx:: Dry mucosa Neck:: Supple, Trachea midline. Negative for: JVD, bilateral Cardiac:: Regular rate, Regular rhythm, Normal S1, Normal S2, Ectopic activity - occasional ectopic beat Lungs: Clear to auscultation, Diminished, Excusion symmetrical. Negative for: Rhonchi, Wheezes, Increased respiratory effort Abdomen:: Bowel sounds x 4, Soft, Non-tender, Non-distended. Negative for: Hepatosplenomegaly - difficult to discern d/ t large body habitus Extremities:: Negative for: Cyanosis, Edema Neurological: Neuro grossly intact Skin:: Negative for: Lesions, Rash, Petechiae, Ecchymosis Psychiatric:: Appropriate affect, Euthymic L ymphatics:: Negative for: Cervical lymphadenopathy, Supraclavicular lymphadenopathy, Axillary lymphadenopathy Assessment and Plan 71-year-old gentleman ex-smoker with adenocarcinoma of the right upper lobe status post wedge resection in May 2017 due to limited pulmonary reserve. Disease is T2NX. PET scanning 2017 did not suggest systemic metastatic disease. Adverse prognostic factors for his dis ease include a limited resection to wedge resection, visceral pleural involvement, and unknown storm status. 1. NSCLC, adenocarcinoma subtype (pT2a, NX) - Has completed 3/4 proposed cycles of adjuvant carboplatin/Alimta, carboplatin dose attenuated (AUC 5) d/t myelosuppression with cycle 3. Tolerating fair with the exception of continued myelosuppression as discussed below. 2. Chemotherapy induced m yelosuppression- as evidenced by Hgb 5.9 and platelets 40,000. Will receive 2 units leukodeplete PRBCs. To hold Xarelto and ASA, agreed upon between senior safety support manager, Dr. Germain. Repeat CBC in 3 days. 3. C onstipation- To continue colace daily, recommended he add senna-jelly and increased PO fluid intake. Activity has been limited d/t fatigue associated with severe anemia. RTC for labs in 3 days and OV on 09/10 as previously planned to consider 4th and final cycle of carboplatin/pemetrexed, sooner if issues arise. Comorbidities: multiple chronic medical conditions including morbid obesity, severe oxyge n dependent COPD, CAD, chronic atrial fibrillation, DJD, peripheral neuropathy (predates chemotherapy). Salina Díaz, MSN, BROWNELL OPERATOR-C, AOCNP Medications: Prescriptions This Visit Medication Instructi ons Recorded Primary Care Provider: Gloria Alvarado DO Referring Provider: Marybeth Millan MD - Problem List (1) 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 Status: Acute (2) Antineoplastic chemotherapy induced anemia Status: Acute (3) Constipation Status: Acute Qualifiers: Constipation type: other constipation type Qualified Code(s): K59.09 - Other constipation 09/01/17 1455 < Electronically signed by Salina BARKERC> Date Salina BARKERC Cosigner Signature: Date __ (if applicable) CC: [place]oacano Germain MD; Derek Prescott MD 31-Aug-2017 Emergency Department Summary Result: Comments: See Note; NOTES: [facility] Medical Records Department [address] [place] [address] Emergency Department Summary 08/31/17 1336 MR#: [id number] Acct: [id number] Name: JV DURHAM JrAxel Rep #: [id number] : 1945 71 From: Teresa Sneed MD PCP: Gloria Alvarado DO Status: DEP ER - ER Visit Summary Date of Service: 08/31/17 Chief Complaint: [] Right sided nos ebleed multiple medical problems Xarelto aspirin therapy History of Present Illness: The patient is a 71 M [] history of heart disease, A. fib on the lung cancer, home O2, recent chemotherapy, recent b lood transfusion a few days ago reports he has had intermittent bleeding from his right nostril he has had a URI minimally, blowing his nose quite a bit the bleeding persisted today and he came in he whitt s not taken his Xarelto or aspirin yet. He denies any vomiting of blood or blood per rectum or bruisability the skin he is otherwise been in his stable state of health eating and drinking and going abou t his usual type activities Physical Examination: [] Total signs are within normal range there is excoriation of the right nasal septum there is clot in place that appears fresh there is no active blee ding the left nostril is clear the throat is clear no bleeding the neck is supple he is on home O2 his lungs are diminished the heart tones are unremarkable rate of about 80 the abdomen soft nontender o bese he is moving all 4 extremities in no distress awake and alert right nasal pack place with no difficulty Test Results: [] Emergency Department Course and Treatment: [] That complaint we did pack h is nose we look at his recent blood tests we had a platelet count of 100,000, hemoglobin about 8 after packing the right nostril he had no further bleeding during observation we checked the back of his throat that was also dry I explained to the we could repeat his blood tests but given that they were just done she deferred that he was started on Keflex follow-up with Dr. Antonio of ENT and all hi s other physicians or return for further bleeding I have asked him to hold his Xarelto and aspirin for 24-48 hrs. until he follows up is done that in the past with no difficulty Treatment Plan: [] Dis position: [] Stable home Impression: [] rt Sided nosebleed, nasal pack multiple medical history as above This note was generated with [employer] dictation software. It may contain incorrect words, spell ing, and punctuation that were not noted in review of the chart prior to signing ED Disposition - Plan for ED Patient: Chief Complaint: Nosebleed Referrals: Fast,Gloria, DO [Primary Care Provider] - What to do if you have Problems For any increased pain, shortness of breath, bleeding, nausea or vomiting, chest pain, or any unexpected problems, contact your Primary Care Provider. Call [facility] ([phone]) or report to the closest Emergency Room. Call 911 if necessary. 08/31/17 1601 <Electronically signed by Teresa Sneed MD> Date Teresa Lanierignralf Signature (If Indicated): Date CC: Gloria Alvarado DO 31-Aug-2017 Discharge Instruction Result: Comments: See Note; NOTES: [facility] Medical Records Department [address] [place] [address] Discharge Instruction 08/31/17 1350 MR#: [id number] Acct: [id number] Name: JV DURHAM Rep #: [id number] : 1945 71 From: Teresa Sneed MD PCP: Gloria Alvarado DO Status: REG ER ED Disposition - Plan for ED Patient: Chief Complaint: Nosebleed Instructions: Nosebleed Pr escriptions: Cephalexin [Keflex] 500 mg PO Q6 #40 cap Referrals: Gloria Alvarado DO [Primary Care Provider] - Derek Prescott MD [STAFF PHYSICIAN] - What to do if you have Problems For any increased pain, shortness of breath, bleeding, nausea or vomiting, chest pain, or any unexpected problems, contact your Primary Care Provider. Call [facility] ([phone]) or report to the closest Emergency Ro om. Call 911 if necessary. 08/31/17 1351 <Electronically signed by Tereas Sneed MD> Date Teresa michele (If Indicated): Date CC: Gloria Alvarado DO 20-Aug-2017 Oncology Visit Report Result: Comments: See Note; NOTES: [facility] [address] [place] [address] OFFICE VISIT Date of Service: 08/20/17 1021 MR#: [id number] Acct: [id number] Name: JV DURHAM Rep #: [id number] : 1945 From: Marybeth Millan MD Age/Sex: 71/M Location: OMD Status: Signed - Problem List (1) 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 Status: Acute (2) Can cer of upper lobe of left lung Status: Acute (3) Anemia Status: Acute - Date of Service Date of Service:: 08/20/17 - Chief Complaint Lung cancer on treatment - History of Present Illness Patient is a 71-year-old gentleman former smoker quit over 20 years ago with a complicated multiple chronic medical illnesses including severe oxygen dependent COPD, CAD, chronic atrial fibrillation, diabetes, hy pertension, morbid obesity, DJD, chronic peripheral neuropathy and possible past history of excessive alcohol consumption. In March 2017 a chest x-ray prompted a CAT scan of the chest and then a PET C T which showed an abnormal left upper lobe nodule measuring 2.3 cm in maximum diameter highly suspicious for malignancy. Due to limited lung reserve the patient went straight to surgery and on 05/16/2017 he underwent left VATS procedure with left upper lobe wedge resection that revealed an adenocarcinoma measuring 1.8 cm in maximum diameter. Tumor was grade 3, unifocal, resection margin was 0.2 cm but there was visceral pleural invasion. No lymphovascular invasion was present and no lymph nodes were dissected. Molecular testing revealed EGFR and ALK mutations negative. The patient recovered from his surgery without complications. Treatment: 05/16/2017 left VATS procedure with left upper lobe wedge resection 07/09/2017- Adjuvant Carbo-Alimta - Past Medical/Social History Past Medical History Cancer : Lung cancer Social History Social History: No changes Smoking Status Former smoker Review of Systems Constitutional:: Reports: Fatigue - Does improve after blood transfusion, - - Occasional minor nosebleeds. Denies: Fever, Sweats, Weight loss, Appetite change, Chills Cardiovascular:: Reports: Dyspnea on exertion. Denies: Chest pain, Palpitations, Orthopnea, PND, Shortness of breath Respiratory: Reports: Shortness of breath upon exertion. Denies: Cough, Hemoptysis, Shortness of Breath, Wheezing Gastrointestinal:: Denies: Abdominal pain, Nausea, Vomiting, Diarrhea, Constipation, Hematochezia Ge nitourinary: Denies: Dysuria, Hematuria, 15, Flank pain Musculoskeletal:: Denies: Back pain, Myalgia, Arthralgia Skin: Denies: Rash, Skin Changes, Wounds Neurological:: Denies: Headache, Dizziness, Visu al changes, Tinnitus, Hearing loss Psychiatric: Denies: Anxiety, Depression, Homicidal Ideations, Suicidal Ideations Vital Signs Height 5 ft 10 in Weight: 133.81 kg Weight in Pounds 295.0 lbs Pulse Ox 91 - Physical Exam General: Alert, Oriented x3, No apparent distress, - - ECOG 1-2 Obese HEENT: Atraumatic, PERRLA, EOMI, Normocephalic Oropharynx:: Dry mucosa Neck:: Supple, Trachea midline. Negati ve for: JVD, bilateral Cardiac:: Regular rate, Normal S1, Normal S2, Irregular rate. Negative for: Murmur Lungs: Clear to auscultation, Diminished, Excusion symmetrical. Negative for: Rhonchi, Wheezes A bdomen:: Bowel sounds x 4, Soft, Non-tender, Non-distended. Negative for: Hepatosplenomegaly Extremities:: Edema - 1+ ankles edema. Negative for: Cyanosis Neurological: Neuro grossly intact Skin:: Negat cindy for: Lesions, Rash, Petechiae, Ecchymosis Psychiatric:: Appropriate affect, Euthymic Lymphatics:: Negative for: Cervical lymphadenopathy, Supraclavicular lymphadenopathy, Axillary lymphadenopathy La boratory Data: Reviewed in EMR Assessment and Plan 71-year-old gentleman ex- smoker with adenocarcinoma of the right upper lobe status post wedge resection in May 2017 due to limited pulmonary re serve. Disease is T2NX. PET scanning 2017 did not suggest systemic metastatic disease. Adverse prognostic factors for his disease include a limited resection to wedge resection, visceral pleural involve ment, and unknown storm status. Patient is status post 2 out of 4 planned cycles Main toxicity experienced is bone marrow with severe transfusion requiring anemia at anshu counts that improved after transfusion was packed red blood cells despite reducing carboplatin dose from AUC of 6 down to 5. Start C3/4 today and reducing carboplatin dose to AUC of 5 to avoid excessive bone marrow toxicity and F /U in 3W. Will monitor blood counts weekly and transfuse again if needed Patient has multiple chronic medical conditions including morbid obesity, severe oxygen dependent COPD, CAD, chronic atrial fibr illation, DJD, peripheral neuropathy (predates chemotherapy). Ipression and recommendation discussed with patient Medications: Prescriptions This Visit Medication Instructions Recorded Primary Care P rovider: Gloria Alvarado DO Referring Provider: Marybeth Millan MD 08/20/17 1038 <Electronically signed by Marybeth Millan MD> Date Shaquille Millan MD Cosigner Signature: Date (if applicable) CC: 14-Aug-2017 Cardiology Visit Report Result: Comments: See Note; NOTES: [facility] [address] [place] [address] OFFICE VISIT Date of Service: 08/14/17 MR#: [id number] Acct: [id number] Name: JV DURHAM Rep #: [id number] : 1945 Provider: Michoacano Germain MD Age/Sex: 71/M Location: [facility] [place] Status: Signed HPI HPI Chief Complaint: Routine F/u Details: HPI PCP: Dr. Anastasia Alvarado This is 71-year-old male who presents for cardiovascular outpatient follow-up. He has a history of hypertension, morbid obesity, hyperlipidemia, and coronary artery disease with previous bypass surgery in 2005 which inclu ded a HERRERA to the LAD and SVG to the obtuse marginal. In 2006 he underwent stenting to the anastomotic site of the HERRERA to the LAD as well as angioplasty to the PDA. Other pertinent history includes Par kinson's disease, frequent falls, COPD, and obstructive sleep apnea. ECG from November 20, 2016 show atrial fibrillation with a rate of 80 bpm. Echocardiogram from November 2016 showed moderate concentric left ventricular hypertrophy, estimated ejection fraction 45%, mild to moderate global hypokinesis of the left ventricle, D-shaped septum in diastole, severely dilated right ventricle, moderate global right ventricular systolic dysfunction, severely enlarged left atrium, severely enlarged right atrium, mild mitral valve insufficiency, mild tricuspid valve insufficiency, RVSP of 60 mmHg., Moderate pulmonar y hypertension. May 2013 patient had right common iliac stent placement and left common iliac stent placement at [facility]. Heart cath from April 2013 showed normal LV size and function with an EF of 65%, showed widely patent HERRERA to LAD with a patent distal HERRERA to the LAD anastomotic stents, widely patent saphenous vein graft to obtuse marginal system, minimal nonobstructive disease of the right coronary artery no evidence of restenosis of the previous balloon angioplasty site in the PDA. At that time it was noted to have a lesion of right common iliac. From a cardiac standpoint h e is doing well. Pt denies chest discomfort. Their exercise tolerance is stable. Pt denies symptoms of CHF, palpitations, lightheadedness, dizziness, near syncopal or syncopal episodes. Pt denies edema or claudication issues. Pt. denies any fever or chills. Pt. denies pain in abdomen, jaw, or arm. Patient states shortness of breath is improved with lasix. Pt. wears oxygen at night, but no CPAP machine . We attempted DC cardioversion in the past, but unfortunately this was unsuccessful. Patient now returns for routine follow-up. The patient has had several mechanical falls but no syncope. When the p atient walks with a cane he adds tendency to fall, but when he walks with a walker he is fine. He is awaiting surgical evaluation of his right lower extremity for possible knee surgery so that he can wa lk better. He remains on anticoagulation therapy for his chronic atrial fibrillation. Since her last visit, the patient was diagnosed with lung cancer on the left side and underwent a wedge resection a fter his Xarelto was held. His Xarelto was restarted, and he has undergone 2 out of 4 doses of chemotherapy. He received no radiation therapy. He has required several transfusions, and occasionally has nosebleeds when his platelets go down. He denies any exertional chest pain, angina but does have dyspnea when his hemoglobin count goes down. As best he can tell he has no metastases on PET scanning, an d is on chronic O2 therapy at this time. In office today his blood pressure is 106/62 pulse is 80 and irregular. His physical exam Is as below. His lipids As of 12/23/16 showed LDL of 94 and an HDL of 5 3. Lipids as of 08/13/17 show an HDL of 25 and LDL of 19. Intake Vital Signs08/14/17 Height 5 ft 10 in Intake Visit Reasons: 6 M FU Allergies No Known Allergies Allergy (Verified 08/14/17 13:07) Medications Aspirin [Aspirin, Baby] 81 mg PO DAILY@0800 05/06/13 [History Confirmed 08/06/17] Cyanocobalamin (Vitamin B-12) [Vitamin B-12] 1,000 mcg PO DAILY 05/06/13 [History Confirmed 08/06/17] Docus ate Sodium [Colace] 100 mg PO BID 05/06/13 [History Confirmed 08/06/17] Fenofibrate [Tricor] 145 mg PO DAILY 05/06/13 [History Confirmed 08/06/17] Folic Acid 1 mg PO DAILY@0800 05/06/13 [History Confirm ed 08/06/17] Potassium Chloride [Klor-Con 10] 20 meq PO BID 05/06/13 [History Confirmed 08/06/17] Tiotropium Flora [Spiriva 18 MCG] 1 puff INHALATION DAILY 05/06/13 [History Confirmed 08/06/17] Valsar rosales [Diovan] 80 mg PO DAILY 05/06/13 [History Confirmed 08/06/17] Vit A/Vit C/Vit E/Zinc/Copper [Icaps Areds Formula Tablet] 1 ea PO BID 05/06/13 [History Confirmed 08/06/17] Duloxetine HCl 60 mg PO QHS 12/04/16 [History Confirmed 08/06/17] Gabapentin [Neurontin] 600 mg PO QHS 12/04/16 [History Confirmed 08/06/17] Pramipexole Di-HCl [Mirapex] 0.5 mg PO TID 12/04/16 [History Confirmed 08/06/17] Budeson miller 0.25 mg IH BID 01/01/17 [History Confirmed 08/06/17] Formoterol Fumarate [Perforomist] 20 mcg INHALATION BID 01/01/17 [History Confirmed 08/06/17] Furosemide [Lasix] 40 mg PO BIDLX 01/01/17 [History Confirmed 08/06/17] Rivaroxaban [Xarelto] 20 mg PO DAILY 01/01/17 [History Confirmed 08/06/17] Digoxin 250 mcg PO DAILY 02/27/17 [History Confirmed 08/06/17] Lidocaine/Prilocaine [Lidocaine-Prilocaine Cream] 30 gm TP DAILY PRN PRN #1 cream..g. 06/25/17 [Rx Confirmed 07/04/17] Prochlorperazine Maleate 10 mg PO Q6H PRN PRN #30 tab 06/25/17 [Rx Confirmed 07/04/17] metoprolol tartrate 100 mg tablet 50 mg PO BID tab 06/27/17 [History Confirmed 08/06/17] Atorvastatin Calcium [Lipitor] 80 mg PO QHS 07/04/17 [History Confirmed 08/06/17] Hydrochlorothiazide [Hctz] 12.5 mg PO DAILY 07/04/17 [History Confirme d 08/06/17] Niacin 500 mg PO BID 07/04/17 [History Confirmed 08/06/17] ferrous sulfate 325 mg (65 mg iron) tablet 325 mg PO 08/14/17 [History Confirmed 08/14/17] [facility] Medical History (Reviewed @ 13:07 by Rach Butcher) Secondary pulmonary arterial hypertension (Chronic) Atherosclerosis of coronary artery of [place] heart without angina pectoris (Chronic) 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 (Acute) Chemotherapy induced neutropenia (Acute) Anemia (Acute) COPD (chronic obstructive pulmonary disease) (Acute) Dyspnea (Acute) Diabetes (Acute) Neuropathy (Acute) Arthritis (Ac atka) Obesity (Acute) Alcohol dependence (Acute) GERD (gastroesophageal reflux disease) (Acute) DJD (degenerative joint disease) (Acute) Vascular disease (Acute) Renal disease (Acute) Macular degeneratio n (Acute) Arrhythmia (Acute) Migraine (Acute) Memory loss (Acute) Hypotestosteronism (Acute) Essential tremor (Acute) Parkinsons (Acute) Dementia (Acute) HEBER (obstructive sleep apnea) (Acute) Benign ess ential hypertension (Acute) Hammertoes of both feet (Acute) History of left heart catheterization (Acute 12/04/16) Chronic atrial fibrillation (Chronic) Surgical History H/O coronary artery bypass surgery (Chronic 02/14/06) S/P CABG x 2 (Acute) Left VATS procedure with wedge resection KATIE (Acute) History of cardioversion (Chronic 12/2016) History of coronary artery stent placement (Chronic 12/23/06) angiolasty and stenting to BLE iliac arteries (Chronic 08/04/12) Family History Sister Alcoholism Can cer Mother Arthritis Father Arthritis Brother Cancer Social History Smoking Status: Former smoker second hand exposure: No alcohol intake: never substance use type: does not use caffeine: No what type of physical activity do you participate in: none frequency: does not exercise seatbelt use: always ROS Const Const: Positive for weakness and fatigue; negative for difficulty sleeping, freq uent falls, excessive sweating or headache(s) Eyes Eyes: Negative for loss of peripheral vision, transient loss of vision, blurry vision or double vision ENT ENT: Negative for Nosebleed/epistaxis, marc ce problems, dizziness or headache(s) Cardio Chest Pain: No Edema: None Muscle aches with walking: None Resp Respiratory: Positive for SOB with activity; negative for SOB at rest, SOB orthopnea\SOB lyin g down or paroxysmal nocturnal dyspnea Additional Details: continuous O2 at 2L GI GI: Negative nausea or heartburn : Negative for hematuria Musc Musc: Negative for muscle aches/ myalgia, muscle wea kness, joint pain or balance problems Skin Skin: Negative non-healing lesions, unusual bruising or rash Neuro Neuro: Positive for weakness; negative for blurry vision, lightheadedness, orthostatic sympt oms, double vision, frequent falls, dizziness or headache(s) Chivo Hematologic/Lymphatic: Negative for easy bruising Endo Endo: Positive for fatigue; negative for excessive sweating or increased thirst/d rinking Psych Psych: Negative for anxiety or depression Allergy Allergy/Immunology: Negative for hives, Negative for rash Cardiology Exam Const Appearance: cooperative, healthy appearing and no acute distress Nutritional Appearance: well nourished Orientation: alert, oriented x3 and oriented to person Head Head: normal to inspection, atraumatic and normocephalic Nose: external nose normal Face and S inus: face symmetric Mouth: oral mucosae normal Eyes General: appearance normal, both eyes and all related structures Eyelids: eyelids normal Conjunctivae: conjunctivae normal Pupils: PERRL and normal b y confrontation EOM: EOM intact bilaterally Neck Neck: normal visual inspection and full ROM Carotids: normal carotid upstroke Chest Chest inspection: normal inspection of the chest Auscultation: Bilate ral: Clear to Auscultation Cardio Palpation: normal PMI Rate: regular rate Rhythm: irregular rhythm Heart sounds: S1 normal and S2 normal GI GI: normal to inspection, no hepatosplenomegaly and bowel ramez nds present Neuro General: alert, oriented x3, awake, CN's II-XI intact bilaterally and moves all extremities Skin Skin: no rashes or lesions noted Extremities Pulses: Normal: Right Femoral Pulse, Left Femoral Pulse, Right Dorsalis Pedis Pulse, Left Dorsalis Pedis Pulse, Right Posterior Tibial Pulse, Left Posterior Tibial Pulse, Right Radial Pulse, Left Radial Pulse Lower Extremity Edema: None: Bilate ral Psych Psychological: normal affect Assessment AND Plan 1. Atherosclerosis of coronary artery of [place] heart without angina pectoris I25.10 CABG x 2 HERRERA-LAD, SVG-OM 02/14/2006 [id number] anastomo sis-LAD w/ Taxus 2.75 x 8 mm and POBA-PDA 12/23/2006 Plan 1. Coronary artery disease: No exertional anginal symptoms at this time. He is currently convalescing from recent lung cancer surgery and [facility] chemotherapy. I recommended that he get through his chemotherapy and recuperate prior to surveillance dobutamine echocardiogram. His blood pressure and heart rate are fairly well-controlled. Contin ue baby aspirin, Lasix, valsartan, and Lopressor. Orders Orders: 2. Atrial fibrillation I48.91 Plan 2. Atrial fibrillation: Currently rate controlled on metoprolol, and digoxin. Recommend he continue X arelto at this time to avoid DVT and left atrial appendage thrombus. Once his chemotherapy is completed, hopefully his hemoglobin and platelets will normalize. If the patient has any bleeding issues, he will need to hold his Xarelto until this has resolved. 3. Hyperlipidemia: His LDL and HDL cholesterol are at goal. Continue Lipitor. 4. Return office in 6 months. This note was generated using a Lightera recognition system and there may be incorrect words, spelling or punctuation that were not noted when reviewing the office note prior to saving. Plan Detail Other Orders Orders: Follow Up 6 Months (N milad) Coding Level of Care Code Off vis,est,level 3 Diagnoses Atherosclerosis of coronary artery of [place] heart without angina pectoris I25.10 Atrial fibrillation I48.91 Coding Level of Care Code Off vis,est,level 3 Diagnoses Atherosclerosis of coronary artery of [place] heart without angina pectoris I25.10 Atrial fibrillation I48.91 08/14/17 1335 <Electronically signed by Michoacano salas MD> Date Michoacano Germain MD Cosigner Signature: Date (if applicable) CC: 08-Jul-2017 Operative Report Result: Comments: See Note; NOTES: [facility] Medical Records Department [address] [place] [address] Operative Report 07/08/17 1259 MR#: [id number] Acct: [id number] Name: MARVAMARTARALF Reagan Rep #: [id number] : 1945 71 From: Michoacano Alcala MD PCP: Gloria Alvarado DO Status: [facility] Y Location: [place] [address] Problem List (1) Cancer of upper lobe of left lung Status: Acute Report of Op eration Date of Procedure: 07/08/17 Pre-Operative Diagnosis: c34.12 primary malignant neoplasia of left upper lobe of lung Post-Operative Diagnosis: Same Surgery/Procedure Performed:: Placement of a rig ht internal jugular PowerPort Type of Anesthesia:: MAC Anesthesiologist: Yunior Monk Description of Procedure: Patient was brought in the operating room placed in the supine position under excellen t MAC anesthetic the patient was placed in the headdown I ultrasound the internal jugular vein on the right side marked the neck and chest appropriately. The neck and chest were sterilely prepped and dr aped in the usual fashion. Seldinger's technique was used to gain access to the internal jugular vein guidewire was placed over the needle the needle was removed fluoroscopy was used to confirm placemen t of the guidewire into the internal jugular vein. Local was injected into the chest. Incision was made a pocket was created with use electrocautery for the port. A skin uri was made in the neck dilato r and sheath were placed over the guidewire the guidewire was removed the dilator was removed single lumen catheter was placed through the sheath and the sheath was removed. Using fluoroscopy we use thi s to confirm proper length of the catheter. A tunneled from the pocket over the collarbone into the neck and brought the catheter down. I cut the catheter to length placed the locking hub on the cathete r the port onto the catheter and secured the 2 with the locking hub and flushed and irrigated well it was sutured into the pocket with 2 sutures of 2-0 Prolene. Skin incisions were brought together with deep dermal stitches of 3-0 Vicryl. Dermabond was applied. I accessed the port and flushed and irrigated well and was flushed with 5 cc of hep flush sterile dressings were applied and the patient susu ated the procedure well. - Admit VTE Documentation VTE Present on Admission: No VTE Mechan Device Prophylaxis: SCD's VTE Pharm Prophylaxis ordered?: No Reason prophylaxis not ordered:: Treatment Not In dicated 07/08/17 1305 <Electronically signed by Michoacano Alcala MD> Date Michoacano Alcala MD CC: Michoacano Alcala MD; Gloria Alvarado DO; Marybeth Millan MD Signed 08-Jul-2017 Chest 1 View (Portable) Result: Comments: See Note; NOTES: [facility] Imaging Services [address] [place] [address] Chest 1 View (Portable) MR#: [id number] Acct: [id number] Name: JV DURHAM Rep #: [id number] : 1945 M 71 From: Navdeep Canseco MD PCP: Gloria Alvarado DO Status: [facility] Study: Chest 1 View (Portable) Date of Exam: 07/08/17 Exam# [id number] Ordering Dr: Michoacano Alcala MD STUDY: X-RAY CHEST REASON FOR EXAM: Male, 71 years old. Port placement. TECHNIQUE: Single AP portable view of the chest. COMPARISON: Comparison is made with prior examination dated March 12, 2017. FINDINGS: A right-sided portacatheter has been placed. The tip is in the proximal portion of the superior vena cava. The lungs are clear and expanded. There is no demons trated pleural abnormality. Sternal cerclage wires and vascular clips are present from a prior sternotomy and coronary artery bypass graft procedure (CABG). Borderline cardiomegaly. Normal mediastinum and yovanny. Normal visualized pulmonary arteries. Normal visualized aortic arch and descending thoracic aorta. Normal visualized thoracic spine. Normal visualized ribs, clavicles, and shoulders. There i s no demonstrated abnormality of the visualized soft tissue structures of the upper abdomen. RAD/Chest 1 View (Portable) IMPRESSION: The tip of t he right-sided portacatheter is in the proximal portion of the superior vena cava. Electronically Signed: Navdeep Canseco MD at 14:02 EST Tel [phone], Service support , CC: Michoacano Alcala MD; Gloria Alvarado DO Screening Technician: Signed 07-Jul-2017 Surgery Visit Report Result: Comments: See Note; NOTES: [facility] [address] [place] [address] [place] [address] OFFICE VISIT Date of Service: 06/30/17 MR#: [id number] Acct: [id number] Name: JV LAND Rep #: [id number] : 1945 Provider: Michoacano Alcala MD Age/Sex: 71/M Location: [facility] Status: Signed Intake Vital Signs06/30/17 Height 5 ft 10 in 06/30/17 Weight: 300 lb Intake Vi sit Reasons: NEEDS PORT PLACEMENT Bag Liner Required: No Is patient in pain?: No Allergies No Known Allergies Allergy (Verified 07/04/17 13:45) Medications Aspirin [Aspirin, Baby] 81 mg PO DAILY @0800 05/06/13 [History Confirmed 07/04/17] Cyanocobalamin (Vitamin B-12) [Vitamin B-12] 1,000 mcg PO DAILY 05/06/13 [History Confirmed 07/04/17] Docusate Sodium [Colace] 100 mg PO BID 05/06/13 [History Confirmed 07/04/17] Fenofibrate [Tricor] 145 mg PO DAILY 05/06/13 [History Confirmed 07/04/17] Folic Acid 1 mg PO DAILY@0800 05/06/13 [History Confirmed 07/04/17] Potassium Chloride [Klor-Con 10] 20 me q PO BID 05/06/13 [History Confirmed 07/04/17] Tiotropium Flora [Spiriva 18 MCG] 1 puff INHALATION DAILY 05/06/13 [History Confirmed 07/04/17] Valsartan [Diovan] 80 mg PO DAILY 05/06/13 [History Confi rmed 07/04/17] Vit A/Vit C/Vit E/Zinc/Copper [Icaps Areds Formula Tablet] 1 ea PO BID 05/06/13 [History Confirmed 07/04/17] Duloxetine HCl 60 mg PO QHS 12/04/16 [History Confirmed 07/04/17] Gabapentin [ Neurontin] 600 mg PO QHS 12/04/16 [History Confirmed 07/04/17] Pramipexole Di- HCl [Mirapex] 0.5 mg PO TID 12/04/16 [History Confirmed 07/04/17] Budesonide 0.25 mg IH BID 01/01/17 [History Confirmed 06/16 03/03] Formoterol Fumarate [Perforomist] 20 mcg INHALATION BID 01/01/17 [History Confirmed 07/04/17] Furosemide [Lasix] 40 mg PO BIDLX 01/01/17 [History Confirmed 07/04/17] Rivaroxaban [Xarelto] 20 mg PO DAILY 01/01/17 [History Confirmed 07/04/17] Digoxin 250 mcg PO DAILY 02/27/17 [History Confirmed 07/04/17] Lidocaine/Prilocaine [Lidocaine-Prilocaine Cream] 30 gm TP DAILY PRN PRN #1 cream..g. 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 D (chronic obstructive pulmonary disease) (Acute) Dyspnea (Acute) Diabetes (Acute) Neuropathy (Acute) Arthritis (Acute) Obesity (Acute) Alcohol dependence (Acute) GERD (gastroesophageal reflux disease) (Acute) DJD (degenerative joint disease) (Acute) Vascular disease (Acute) Renal disease (Acute) Pulmonary hypertension (Acute) Macular degeneration (Acute) Arrhythmia (Acute) Migraine (Acute) Memory los s (Acute) Coronary artery disease (Acute) Hypotestosteronism (Acute) Essential tremor (Acute) Parkinsons (Acute) Dementia (Acute) HEBER (obstructive sleep apnea) (Acute) Benign essential hypertension (Acu te) Hammertoes of both feet (Acute) Surgical History S/P CABG x 2 (Acute) Family History Sister A lcoholism Mother Arthritis Father Arthritis Brother Cancer Social History Smoking Status: Former smoker second hand exposure: No alcohol intake: never substance use type: does not use caffeine: No what type of physical activity do you participate in: none frequency: does not exercise seatbelt use: always HPI HPI HPI: JV DURHAM, is a 71 M who presents to the office today for evaluatio n for port placement. 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 He will be undergoing limited chemot herapy and is in need for a port. ROS General General: No weight change, appetite, fatigue, colon cancer, breast cancer or weakness HEENT HEENT: No difficulty swallowing, eye injury, eye surgery, swo llen glands or hoarseness Endo Endocrine: Yes diabetes mellitus; no thyroid disease, thyroid cancer, Hair loss, heat intolerance or cold intolerance Skin Skin: No rash or changing moles Musc Musculoskel etal: Yes back problems and arthritis; no rheumatoid arthritis, gout or joint pain Cardio Cardiovascular: Yes heart disease, atrial fibrillation and high blood pressure; no murmur, pacemaker, heart jayshree ck, heart stent, palpitations, shortness of breat with exertion or chest pain Psych Psychiatric: No depression, anxiety or hearing voices Resp Respiratory: Yes shortness of breath, Yes sleep apnea, No c ough, Yes COPD, No asthma, Yes emphysema, No wheezing Gastro Gastrointestinal: No abdominal pain, No nausea or vomiting, No diarrhea, No constipation, No blood in stool, No acid reflux, No hemorrhoids, No ulcers, No gallbladder problem, No black,tarry stools Chivo Hematologic: Yes blood thinners, No blood disorders, No bleeding, No anemia, No blood clots Neuro Neurologic: No system reviewed and no chiqui tional complaints, except as docu, No as per HPI, No abnormal walking, No abnormal hearing, No abnormal movements, No abnormal speech, No behavioral changes, No burning sensations, No confusion, No seiz ure-like activity, No unsteadiness, No dizziness, No localized weakness, No frequent falls, No headache(s), No lack of coordination, No loss of vision, No memory loss, No numbness, No other visual distu rbances, No radiating pain, No restless legs, No sensory deficit, No fainting, No tingling, No tremor(s), No weakness, No other Exam Const General: well developed, no acute distress, well hydrated Saurav entation: oriented to person, oriented to place, oriented to time [facility] Head: normocephalic, atraumatic Ears: external ears normal Mouth: moist mucous membranes Eyes Sclera: sclerae normal Pupils: indra l by confrontation Neck Neck: no lymphadenopathy noted Neck mass: No Thyroid: symmetrical, thyroid normal Chest Chest palpation AND inspection: normal inspection of the chest Resp Effort AND Inspection: normal respiratory effort Auscultation: clear to auscultation bilaterally Percussion: percussion normal Cardio Rate: regular rate Rhythm: regular rhythm Heart Sounds: no murmurs GI Palpation: soft, no masses, no hepatosplenomegaly, nontender Rectal Exam: other Other: Rectal exam deferred. Extrem General: no clubbing, cyanosis or edema, normal to inspection Assessment AND Plan Problems 1. Primary ma lignant neoplasm of left upper lobe of lung C34.12 Plan I plan to perform a right IJ port a cath placement. The planned surgical procedure was discussed extensively with the patient. The risks, benefit s, anticipated outcomes and possible complication were mentioned. My staff has also explained the procedure in understandable terms and the patient was given the option to take printed material concerni ng the planned procedure. The patient had the opportunity to ask questions concerning the planned procedure. The patient freely consents to the planned procedure. Coding Level of Care Code Off vis,new ,level 3 Diagnoses 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 C34.12 07/07/17 1403 <Electronically signed by Michoacano Alcala MD> Date Michoacano Alcala MD Cosigner Signature: Date (if applicable) CC: Gloria Alvarado DO; Marybeth Millan MD 23-Jun-2017 History and Physical Exam Result: Comments: See Note; NOTES: [facility] Medical Records Department [address] [place] [address] History and Physical 06/23/17 1411 MR#: [id number] Acct: [id number] Name: Beverley DURHAM Rep #: [id number] : 1945 71 From: Marybeth Millan MD PCP: Gloria Alvarado DO Status: REG RCR Y Location: OMD (1) 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 Status: Acute Subjec tive Date of Service:: 06/23/17 Chief Complaint: Lung cancer, new diagnosis History of Present Illness: Patient is a 71-year-old gentleman former smoker quit over 20 years ago with a complicated multip le chronic medical illnesses including severe oxygen dependent COPD, CAD, chronic atrial fibrillation, diabetes, hypertension, morbid obesity, DJD, chronic peripheral neuropathy and possible past histor y of excessive alcohol consumption. In March 2017 a chest x-ray prompted a CAT scan of the chest and then a PET CT which showed an abnormal left upper lobe nodule measuring 2.3 cm in maximum diameter highly suspicious for malignancy. Due to limited lung reserve the patient went straight to surgery and on 05/16/2017 he underwent left VATS procedure with left upper lobe wedge resection that revealed an adenocarcinoma measuring 1.8 cm in maximum diameter. Tumor was grade 3, unifocal, resection margin was 0.2 cm but there was visceral pleural invasion. No lymphovascular invasion was present and no lymp h nodes were dissected. Molecular testing revealed EGFR and ALK mutations negative. The patient recovered from his surgery without complications. Power of Certified Novell Engineer: Yes Living Will: Yes Health History: Cancer History Cancer: Lung cancer Social History Smoking Status Former smoker Allergies/Adverse Reactions: Allergy/AdvReac Type Severity Reaction Status Date / Time No Known Allergies Allergy V erified 06/23/17 13:08 Home Medications Medication Instructions Recorded Aspirin [Aspirin, Baby] 81 mg PO DAILY@0800 05/06/13 Risk Factors Tobacco Risk Data: Tobacco Risk Smoking Status Former s moker Type of tobacco: Cigarettes Smokeless tobacco usage: Items/Day: Year started: Years used: 30 Counseled to quit/cut down: Reason for no counseling performed: Reason for no pharmacotherapy: Tobacco use comments: Passive smoke exposure: Substance Risk Drug use: Caffeine use [drinks/day]: 1 Alcohol use: Type of alcohol: wine Drinks per day: Has patient felt the need to cut down: Has the patient been annoyed by complaints: Has the patient felt guilty about drinking: Has the patient needed an 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 Denies: Fever, Sweats, Weight loss, Appetite change, Chills Cardiovascular:: Reports: Dyspnea on exertion, Shortness of breath. Denies: Chest pain, Palpitations, Orthopnea, PND Respiratory: Re ports: Shortness of Breath, Shortness of breath upon exertion, -. Denies: Cough, Hemoptysis, Wheezing Gastrointestinal:: Denies: Abdominal pain, Nausea, Vomiting, Diarrhea, Constipation, Hematochezia Ge nitourinary: Reports: Incontinence - Has urge incontinence. Denies: Dysuria, Hematuria, Flank pain Musculoskeletal:: Reports: Arthritis - Degenerative arthritis of lower extremities, Back pain - Chronic degenerative back disease. Denies: Myalgia, Arthralgia Skin: Denies: Rash, Skin Changes, Wounds Neurological:: Reports: Numbness - Chronic neuropathy in the feet. Denies: Headache, Dizziness, Visual ch anges, Tinnitus, Hearing loss Psychiatric: Denies: Anxiety, Depression, Homicidal Ideations, Suicidal Ideations Vital Signs Height 5 ft 10 in Weight: 133.81 kg Weight in Pounds 295.0 lbs - Physica l Exam General: Alert, Oriented x3, No apparent distress, - - Morbidly obese ECOG 2 HEENT: Atraumatic, PERRLA, EOMI, Normocephalic Oropharynx:: Dry mucosa Neck:: Supple, Trachea midline. Negative for: J VD, bilateral Cardiac:: Normal S1, Normal S2, Irregular rate. Negative for: Murmur Lungs: Clear to auscultation, Diminished, Excusion symmetrical, - - Well-healed recent surgical wounds. Negative for: R honchi, Wheezes Abdomen:: Soft, Non-tender, Non-distended. 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 Disease is T2NX. PET scanning 2017 did not suggest systemic metastatic disease. Adverse prognostic factors for his disease include a limited resection to wedge resection, visc eral pleural involvement, and unknown storm status. 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 No I reviewed the most recent NCCN and due to the adverse prognostic factors outlined above advice systemic adjuvant chemotherapy. Patient ca nnot tolerate cis-teller based combination due to excessive toxicities expected with his significant chronic medical problems and therefore I advice 4 cycles of adjuvant carboplatin and Alimta with ma ximum support to include steroids, folic acid and B12 supplement, and primary prophylaxis with Neulasta. Patient was seen was his impression and recommendation discussed and he consented to therap y. Formal teaching session with AUTOMOTIVE PROJECT ENGINEER will be scheduled in central venous access requested. Primary Care Provider: Gloria Alvarado DO Referring Provider: Marybeth Millan MD 06/23/17 1432 <Electroni devika signed by Marybeth Millan MD> Date Marybeth Millan MD Cosigner Signature: Date (if ap plicable) CC: Gloria Alvarado DO; Marybeth Millan MD Signed 04-Apr-2017 PET/CT Tumor Base -Thigh Init Result: Comments: See Note; NOTES: [facility] Imaging Services [address] [place] [address] PET/CT Tumor Base -Thigh Init MR#: [id number] Acct: [id number] Name: JV DURHAM JR Re p #: [id number] : 1945 M 71 From: Glen Pickard DO PCP: Gloria Alvarado DO Status: [facility] CLI Study: PET/CT Tumor Base -Thigh Init Date of Exam: 04/07/17 Exam# [id number] Ordering Dr: Jv Salazar MD EXAMINATION: FDG PET CT INDICATIONS: A 71-year-old male with history of pulmonary nodularity. COMPARISON EXAMINATION: CT of the chest report dated 03/18/17. INDEX LESION SIZE SUV INTERPRETATION Left upper hemithorax, left upper lobe 23.5 mm (frame 250) 4.1 Quantitative criteria for viable neoplasm are fulfilled, histopathologic analysis recommended Right mid posterior hemithorax, right lower l obe 13.9 mm (frame 224) 1.6 Quantitative criteria for viable neoplasm are not fulfilled NON-INDEX LESION SIZE SUV INTERPRETATION Left lateral neck level II A 1.4 Quantitative criteria for viable neopla sm are not fulfilled TECHNIQUE: Following the intravenous administration of 16.66 mCi of F-18 deoxyglucose via the left hand, multiplanar image acquisitions of the neck, chest, abdomen and pelvis to le sanjuana of mid thigh, obtained at one hour post radiopharmaceutical administration contemporaneously interpreted with the current CT of the neck, chest, abdomen and pelvis to level of mid thigh, dated 04/[address] of the chest report dated 03/18/17 reveal: SERUM GLUCOSE LEVEL: 148 mg/dl. HEIGHT: 70 inches. WEIGHT: 300 lbs. FINDINGS: 1. Focal increased glucose metabolism is identifi ed in the left upper hemithorax pulmonary parenchyma, left upper lobe involving the apical posterior segment. The calculated maximum standard uptake value is 4.1. The maximal axial diameter of the metab olic abnormality is 23.5 mm (AP). 2. Subtle increased glucose concentration is manifest in the right mid posterior hemithorax pulmonary parenchyma, right lower lobe. The calculated standard uptake valu e is noted to be 1.6. The maximal axial diameter of the corresponding ground-glass density on review of CT of the chest dated 04/07/17 is 13.9 mm. 3. Asymmetric increased glucose concentration is noted in the left lateral neck involving level II A generating a calculated standard uptake value of 1.4. Quantitative criteria for viable neoplasm are not fulfilled. 4. Normal physiologic distribution of t he radiopharmaceutical is apparent in the hepatic (2.1) and splenic parenchyma, both renal units, bladder and visualized intestinal tract. There is uniform distribution of the radiopharmaceutical concen tration compared on the cerebellar hemispheres and cerebral cortex. Diffuse intestinal tract activity is noted throughout all four quadrants of the abdominal-pelvic retroperitoneum, mesentery consistent with normal physiologic distribution of the radiopharmaceutical. Homogeneous radiopharmaceutical concentration is apparent in the visualized appendicular- axial skeletal structures. Pertinent CT findin gs are as follows. CHEST: There are no additional parenchymal densities-nodules demonstrated in the right-left hemithorax manifesting quantitatively significant increased glucose metabolism. Atheroscler otic calcification is defined in the thoracic aorta without evidence of dilatation, aneurysm formation. Coronary arterial calcification is observed. There is evidence of prior median sternotomy. Subcent imeter axillary soft tissue densities are non-glucose avid. ABDOMEN AND PELVIS: Atherosclerotic calcification is defined in the abdominal aorta without evidence of dilatation, aneurysm formation. Abdomi nal-pelvic arterial calcification is observed. Dystrophic calcification is manifest within the prostate gland. Fat-containing bilateral inguinal hernias demonstrate no evidence of increased glucose meta bolism. SKELETAL: Degenerative changes defined in the cervical, thoracic and lumbar spine demonstrate no evidence for glucose hypermetabolism. PET/PET/CT Tumor Base -Thigh Init IMPR ESSION: 1. Increased glucose metabolism manifest in the left upper hemithorax pulmonary parenchyma, left upper lobe fulfills quantitative criteria for viable neoplasm. Definitive histopathologic analysi s is recommended. (Fly et al, Annals of Internal Medicine, 138:724, 2003). 2. Mild enhanced glucose concentration observed in the right mid posterior hemithorax pulmonary parenchyma, right lower lobe does not fulfill quantitative criteria for viable neoplasm. 3. Facilitated glucose concentration visualized in the left lateral neck does not fulfill quantitative criteria for malignant transformation. 4. Homogenous increased glucose metabolism manifest in the visualized appendicular- axial skeletal structures, in the absence of chemotherapeutic intervention and marrow stimulation, is consistent with t he pattern associated with hyperplasia of the hematopoietic marrow. (Cullen-Osmra, AJR 180:669, 2003). Electronic Signature Glen Pickard D.O. Electronically Signed: Glen Pickard DO 4 at 23:22 EDT Tel , Service support , CC: Gloria Alvarado DO; Jv Salazar MD Screening Technician: Signed 18-Mar-2017 CTA Chest W/WO Contrast Result: Comments: See Note; NOTES: [facility] Imaging Services [address] [place] [address] CTA Chest W/WO Contrast MR#: [id number] Acct: [id number] Name: JV DURHAM Rep #: [id number] : 1945 M 71 From: Derek Ariza MD PCP: Gloria Alvarado DO Status: REG CLI Study: CTA Chest W/WO Contrast Date of Exam: 03/18/17 Exam# [id number] Ordering Dr: Jv Salazar MD STUDY: CTA CHEST REASON FOR EXAM: Male, 71 years old. COPD RADIATION DOSAGE (If Supplied By Facility): CTDIvol = ( 21.71 ) mGy, DLP = ( 761.83 ) mGycm TECHNIQUE: The examination was performed with the intra venous administration of 100 ml of Isovue 370 contrast material. Post-processing of the angiographic images was performed, with multiplanar reformation and 3D reconstruction. Individualized dose optimi zation techniques were used for this CT. COMPARISON: Chest x-ray March 12, [address] chest July 17, 2011 FINDINGS: Normal enhancement of the main pulmonar y artery and right and left pulmonary arteries. Normal enhancement of the bilateral peripheral pulmonary arteries. There is no demonstrated pulmonary embolism. Normal thoracic aorta and visualized grea t vessels. There is no demonstrated aortic dissection. Normal heart and pericardium. There is calcific coronary artery disease. Mediastinal clips are noted. Normal hilar regions. Normal visualized t rachea and bronchi. There is a spiculated mass in the left apex measuring 2.3 x 1.4 cm in transverse and AP dimensions. There is centrilobular and paraseptal emphysema. Normal pulmonary parenchyma. No rmal pleura. Normal chest wall structures. Sternotomy wires are noted. Normal visualized upper abdomen. 0032 CT/CTA Chest W/WO Contrast IMPRESSION: Spiculated mass left apex. Neoplasm not excluded. Comparison images are not available. Follow-up recommended. Coronary artery disease status post sternotomy and coronary bypass. Centrilobular and par aseptal emphysema. Electronically Signed: Derek Ariza MD at 19:54 EDT , Service support , CC: Gloria Alvarado DO; Jv Salazar MD Screening Technician: Signed 12-Mar-2017 Chest PA and Lateral Result: Comments: See Note; NOTES: [facility] Imaging Services [address] [place] [address] Chest PA and Lateral MR#: [id number] Acct: [id number] Name: JV DURHAM JR Rep #: [id number] : 1945 M 71 From: Helene Augustin MD PCP: Gloria Alvarado DO Status: REG CLI Study: Chest PA and Lateral Date of Exam: 03/12/17 Exam# [id number] Ordering Dr: Jv Salazar MD STUDY: X-RAY CHEST REASON FOR EXAM: Male, 71 years old. Dyspnea TECHNIQUE: Frontal and lateral views of the chest. COMPARISON: None. FINDINGS: There is hyperinflation of the lungs consistent with chronic obstructive lung disease (COPD). There is no demonstrated pleural abnormality. Normal size heart. Normal mediastinum and yovanny. Normal visualized pulmonary arteries. Normal visualized aortic arch and descending thoracic aorta. Normal visualized thoracic spine. Normal visualized ribs, clavicles, and shoulders. There is no demonstrated abnormality of the visualized soft t issue structures of the upper abdomen. RAD/Chest PA and Lateral IMPRESSION: There is hyperinflation of the lungs consistent with chronic obstruct cindy lung disease (COPD). Electronically Signed: Helene Augustin MD at 6:31 EDT Tel , Service support , CC: Gloria Alvarado DO; Jv Salazar MD Screening Technician: Signed 15-Jan-2017 Knee 4 or More Views Result: Comments: See Note; NOTES: [facility] Imaging Services [address] [place] [address] Knee 4 or More Views MR#: [id number] Acct: [id number] Name: JV DURHAM JR Rep #: [id number] : 1945 M 71 From: Marino Danielson MD PCP: Gloria Alvarado DO Status: REG CLI Study: Knee 4 or More Views Date of Exam: 01/15/17 Exam# [id number] Ordering Dr: Gloria Alvarado DO STUDY: X-RAY - R IGHT KNEE REASON FOR EXAM: Male, 71 years old. Knee pain. Previous fracture. TECHNIQUE: 3 view(s) of the knee. COMPARISON: None. FINDINGS: Marked deformity of the proximal tibial and fibular shafts consistent with previous fractures that have healed and significant angulation. There is severe degenerative arthrosis of the medial femorotibial compartment with se monico joint space narrowing. There is moderate degenerative arthrosis of the lateral femorotibial compartment with moderate joint space narrowing. There is moderate degenerative arthrosis of the patellof emoral articulation. There is a soft tissue prominence in the suprapatellar region suggesting a small volume joint effusion. There are atherosclerotic calcifications. _ RAD/Knee 4 or More Views IMPRESSION: No definite acute abnormality. Moderate to severe degenerative changes. Marked deformities of the proximal tibia and fibula from previous heal ed fractures. Electronically Signed: Marino Danielson MD at 16:20 EDT , Service support , CC: Gloria Alvarado DO Screening Technician: Signed 15-Jan-2017 Ribs Uni Min 3V w/PA Chest Result: Comments: See Note; NOTES: [facility] Imaging Services [address] [place] [address] Ribs Uni Min 3V w/PA Chest MR#: [id number] Acct: [id number] Name: JV DURHAM JR Rep # : [id number] : 1945 M 71 From: Marino Danielson MD PCP: Gloria Alvarado DO Status: REG CLI Study: Ribs Uni Min 3V w/PA Chest Date of Exam: 01/15/17 Exam# [id number] Ordering Dr: Gloria Alvarado DO STUD Y: X-RAY - UNILATERAL RIBS ( LEFT ) WITH CHEST REASON FOR EXAM: Male, 71 years old. Fall. Pain. TECHNIQUE - RIBS: 5 view(s) of the ribs. TECHNIQUE - CHEST: Single frontal view of the chest. COMPARIS ON: 12/23/2016. FINDINGS - RIBS: Normal visualized ribs without a demonstrated fracture. FINDINGS - CHEST: The lungs are clear and expanded. There is no demonstrate d pleural abnormality. Sternal cerclage wires and vascular clips are present from a prior sternotomy and coronary artery bypass graft procedure (CABG). Normal mediastinum and yovanny. Normal visualized pu lmonary arteries. Normal visualized aortic arch and descending thoracic aorta. Normal visualized thoracic spine. Normal visualized ribs, clavicles, and shoulders. There is no demonstrated abnormality of the visualized soft tissue structures of the upper abdomen. RAD/Ribs Uni Min 3V w/PA Chest IMPRESSION: RIBS: Normal x-ray examination of the ribs. CHEST: No acute chest disease. Electronically Signed: Marino Danielson MD at 16:22 EDT , Service support , CC: Gloria Alvarado DO Screening Technician: Signed 02-Jan-2017 Operative Report Result: Comments: See Note; NOTES: [facility] Medical Records Department [address] [place] [address] Operative Report 01/02/17 1010 MR#: [id number] Acct: [id number] Name: MARTA DURHAM JR Rep #: [id number] : 1945 71 From: Suresh Storm DO PCP: Gloria Alvarado DO Status: DEP MARIO Hunt Location: [facility] Operative Report (Blank) Date of Procedure: 01/02/17 CONSCIOUS SEDATION REPORT DA TE OF SERVICE: January 02, 2017 BRIEF HISTORY OF PRESENT ILLNESS: The patient is a 71-year-old male who presents to [facility] for an elective outpatient cardioversion due to underlying at rial fibrillation. The patient has a history of coronary artery disease for which she is status post bypass surgery. In addition, he has known pulmonary hypertension with preserved ejection fraction on his last echocardiogram. The patient is currently anticoagulated on Xarelto. He reports no previous anesthetic complications. The patient has no known drug allergies. He does wear supplemental oxygen at night with sleeping. He reports no recent constitutional symptoms such as fever, chills, nausea or vomiting. PHYSICAL EXAMINATION: VITAL SIGNS: Reviewed and were acceptable. GENERAL: The patient is an obese male, in no apparent distress, speaking in full sentences. HEENT: Normocephalic, atraumatic. Mucas membranes are moist and pink. Good mouth opening noted. Trachea is midline. Good neck mobility. Large neck circumference with redundant soft tissue. CHEST: S1, S2 irregularly irregular. No murmurs, rubs or gallops were noted. LUNGS: Clear to auscultation bilaterally without appreciable w heezes, rales or rhonchi. ABDOMEN: Soft, nontender, nondistended. Positive bowel sounds. EXTREMITIES: There is no clubbing, cyanosis or edema. ASA Class: II DESCRIPTION OF PROCEDURE: After confirmatio n of informed consent, the patient's anesthesia plan was reviewed in detail. Etomidate was chosen, as the patient was noted to have low normal resting systolic blood pressure. Risks and benefits were re viewed and the patient agreed to proceed. At 0837, the patient was given an initial bolus of etomidate. In total, the patient required 6 mg of etomidate to achieve an appropriate level of sedation. Foll owing this, the patient was given a 250 joule synchronized cardioversion by Dr. Germain at the bedside. This was unsuccessful in achieving normal sinus rhythm. Therefore, a second cardioversion at 300 J was then delivered by Dr. Germain. This too was unsuccessful in achieving normal sinus rhythm. The patient was monitored until 08, at which time he reached his baseline mental status and function. The patient tolerated the procedure well. COMPLICATIONS: None ESTIMATED BLOOD LOSS: None RECOMMENDATIONS: Okay to recover in usual fashion. 01/02/17 1015 <Electronically signed by Suresh Storm DO> Date Suresh Storm DO CC: Gloria Avlarado DO; Suresh Storm D.O. Signed 02-Jan-2017 Operative Report Result: Comments: See Note; NOTES: [facility] Medical Records Department [address] [place] [address] Operative Report 01/02/17 1005 MR#: [id number] Acct: [id number] Name: MARTA DURHAM JR Rep #: [id number] : 1945 71 From: Michoacano Germain MD PCP: Gloria Alvarado DO Status: MAC MARTIN Y Location: [facility] Operative Report (Blank) Date of Procedure: 01/02/17 DC cardioversion report: Mr Axel Winter is a very pleasant 71-year-old gentleman with history of hypertension, hypercholesterolemia, coronary artery disease status post bypass surgery with subsequent angioplasty and stenting of his L TUSHAR to his LAD. In addition the patient has moderate pulmonary hypertension initially had an LV function of 45% which increased to 65% by most recent catheterization in 2014. Patient was diagnosed with atrial fibrillation and started on amiodarone therapy as an assist to get him out of atrial fibrillation. Patient was referred for elective DC cardioversion. The risks/benefits of the procedure were th oroughly explained to the patient and informed consent was obtained. The pacer pads were placed in the AP position. With the assistance of Dr. Suresh Storm the patient was given a total of 6 mg of IV eto midate and 2 mg increments. Once adequate sedation was obtained the patient received a single 250 J biphasic shock which unfortunately did not convert him to normal sinus rhythm. As his sedation was sti ll in place the energy level was increased to 300 J and the patient received a second 300 J biphasic synchronized shock which unfortunately did not convert him to normal sinus rhythm. Patient remained i n atrial fibrillation, spontaneously awoke, moves all 4 extremities and tolerated procedure well. Conclusions #1 unsuccessful amiodarone and Xarelto assisted DC cardioversion, first at 250 and then at 300 J. Recommendations: At this point the patient will discontinue his amiodarone and continue his Xarelto and beta-zita going forward. I would not recommend referral for A. fib ablation at this jamie e. Patient will require lifelong anticoagulation. He will follow-up in our office in 1 week's time for a blood pressure check. In addition the patient's had some positional lightheadedness and dizzines s and was relatively hypotensive this morning. We will decrease his Diovan 260 mg p.o. daily and repeat his blood pressure check in 1 week's time. Patient taught procedure were no complications. DJN 0 01/02/17 1008 <Electronically signed by Michoacano Germain MD> Date Michoacano Germain MD CC: Michoacano Germain MD; Gloria Alvarado DO Signed 23-Dec-2016 Chest PA and Lateral Result: Comments: See Note; NOTES: [facility] Imaging Services [address] [place] [address] [address] 4d Chest PA and Lateral MR#: [id number] Acct: [id number] Name: JV DURHAM JR Rep #: [id number] : 1945 M 71 From: Jerman Hood PCP: Gloria Alvarado DO Status: REG CLI Study: Chest PA and Lateral Date of Exam: 12/23/16 Exam# [id number] Ordering Dr: Shon Morris STUDY: X-RAY CHEST REASON FOR EXAM: Male, 71 years old. Atrial fibrillation TECHNIQUE: Frontal and lateral views of the chest. COMPARISON: 11/22/2016. FINDINGS: The lungs are clear and expanded. There is no demonstrated pleural abnormality. Normal size heart. Patient status post sternotomy. Normal mediastinum and yovanny. Normal visualized pulmonary arteries. Normal visualized aortic arch and descending thoracic aorta. Normal visualized thoracic spine. Normal visualized ribs, clavicles, and shoulders. There is no demonstrated abnormality of the visualized soft tissue struc tures of the upper abdomen. 0036 RAD/Chest PA and Lateral IMPRESSION: No acute cardiopulmonary disease. Electronically Signed: Jerman Hood DO at 23:43 EDT , Service support , CC: MALI Morris; Gloria Alvarado DO Screening Technician: Signed 02-Dec-2016 Carotid Duplex Ultrasound Result: Comments: See Note; NOTES: [facility] Cardiovascular Services [address] [place] [address] Carotid Duplex Ultrasound 11/29/16 1025 MR#: [id number] Acct: [id number] Name: JV JONES JR Rep #: [id number] : 1945 71 From: Jamie Cheung MD Attending Dr: Gloria Alvarado DO Status: REG CLI Ordering Dr: Gloria Alvarado DO Date: 11/29/16 Location: [facility] Sex: M C Admitted: Re ason For Study: Carotid stenosis Rt. Velocities/BP Lt. Velocities/BP Prox CCA 66.8/12.9 cm/sec. Prox CCA 83.3/15.2 cm/sec. Mid CCA 62.9/13.4 cm/sec. Mid CCA 74.5/15.8 cm/sec. Dist CCA 80.3/13.4 cm/sec. Dist CCA 65.7/12.9 cm/sec. Prox ICA 96.2/15.8 cm/sec. Prox ICA 79.2/24.6 cm/sec. Mid ICA 128.0/30.1 cm/sec. Mid ICA 97.3/24.6 cm/sec. Dist ICA 92.7/25.9 cm/sec. Dist ICA 84.4/18.2 cm/sec. Rt. ICA/CCA = 2.0. Lt. ICA/CCA = 1.3. Prox ECA 97.3/8.8 cm/sec. Prox ECA 233.0/26.2 cm/sec. Rt. Vert. 49.8/8.2 cm/sec. Lt. Vert. 33.4/9.4 cm/sec. Right Extracranial There is heterogeneous, irregular atherosclerotic plaque noted in the right common carotid artery. The atherosclerotic plaque causes acoustic shadowing. There is heterogeneous, irregular atherosclerotic plaque noted in the right internal carotid arter y. The atherosclerotic plaque causes acoustic shadowing. There is heterogeneous, irregular atherosclerotic plaque noted in the right external carotid artery. The atherosclerotic plaque causes acoustic s hadowing. Antegrade flow is noted in the right vertebral artery. Left Extracranial There is heterogeneous, irregular atherosclerotic plaque noted in the left common carotid artery. There is heterogeneo us, irregular atherosclerotic plaque noted in the left internal carotid artery. The atherosclerotic plaque causes acoustic shadowing. There is heterogeneous, irregular atherosclerotic plaque noted in th e left external carotid artery. The atherosclerotic plaque causes acoustic shadowing. Antegrade flow is noted in the left vertebral artery. Procedure Carotid Duplex 36212. Technically difficult due to pts irregular breathing and acoustic shadowing of vessels. Exam performed in department. Interpretation Summary Moderate (50-69%) stenosis right extracranial internal carotid. Mild (<50%) steno sis left extracranial internal carotid. Flow within the vertebral arteries is antegrade bilaterally. ____ __ Ordering Physician: Gloria Alvarado Performed By: Emilie Amezcua RVT 12/02/16 1222 Date Jamie Cheung MD CC: Gloria Alvarado DO Date Dictated: 11/29/16 1025 Date Transcribed: 12/02/16 1222 Screening Technician: Signed 22-Nov-2016 Chest PA and Lateral Result: Comments: See Note; NOTES: [facility] Imaging Services [address] [place] [address] Verdana 4d Chest PA and Lateral MR#: [id number] Acct: [id number] Name: JV DURHAM JR Rep #: [id number] : 1945 M 71 From: Antoine Dawn DO PCP: Gloria Alvarado DO Status: REG CLI Study: Chest PA and Lateral Date of Exam: 11/22/16 Exam# [id number] Ordering Dr: Gloria Alvarado DO STUDY: X-R AY CHEST REASON FOR EXAM: Male, 71 years old. Dyspnea. Hypertension. TECHNIQUE: PA and lateral views of the chest. COMPARISON: None. FINDINGS: There is hyperinfl ation of the lungs consistent with chronic obstructive lung disease (COPD). Lungs are clear. There is no demonstrated pleural abnormality. Sternal cerclage wires are present from a prior sternotomy. Mo derate cardiomegaly. Normal mediastinum and yovanny. Normal visualized pulmonary arteries. Normal visualized aortic arch and descending thoracic aorta. Normal visualized thoracic spine. Normal visualized ribs, clavicles, and shoulders. There is no demonstrated abnormality of the visualized soft tissue structures of the upper abdomen. RAD/Chest PA and Lateral IMPRESSION: COPD and cardiomegaly. Electronically Signed: Antoine Dawn DO at 14:49 EDT Tel , Service support , CC: Gloria Alvarado DO Screening Technician: Signed 22-Nov-2016 Cerv Spine 4 or 5 Views Result: Comments: See Note; NOTES: [facility] Imaging Services [address] [place] [address] Verdana 4d Cerv Spine 4 or 5 Views MR#: [id number] Acct: [id number] Name: JV DURHAM JR Rep #: [id number] : 1945 M 71 From: Antoine Dawn DO PCP: Gloria Alvarado DO Status: REG CLI Study: Cerv Spine 4 or 5 Views Date of Exam: 11/22/16 Exam# [id number] Ordering Dr: Gloria Alvarado DO STUD Y: X-RAY - CERVICAL SPINE REASON FOR EXAM: Male, 71 years old. Neck pain with radiation into the arms TECHNIQUE: 5 view(s) of the cervical spine were obtained. COMPARISON: None FINDINGS: Normal anterior atlantoaxial articulation. Normal odontoid process. There is straightening of the normal cervical lordosis. There is multi-level endplate spondylosis. There is multi-level degenerative disc disease with multilevel disc space narrowing. There is multi-level osseous foraminal stenosis. The soft tissue structures are unremarkable. There is no demonstrated fractu re of the cervical spine. 0064 RAD/Cerv Spine 4 or 5 Views IMPRESSION: Degenerative changes without acute findings Electronically Signed: Antoine Dawn DO at 14:48 EDT Tel , Service support , CC: Gloria Alvarado DO Screening Technician: Signed 18-Nov-2016 Echo, Complete w/ Contrast Result: Comments: See Note; NOTES: [facility] Cardiovascular Services [address] [place] [address] Echo Complete W/ Contrast 11/15/16 0954 MR#: [id number] Acct: [id number] Name: JV JONES JR Rep #: [id number] : 1945 71 From: Michoacano Germain MD Attending Dr: Leo Reyes NP Status: REG CLI Ordering Dr: Leo Reyes AUTOMOTIVE PROJECT ENGINEER-C Date: 11/15/16 Location: [facility] Sex: M C Admitted: Beverley yap For Study: Dyspnea on Exertion Procedure This was a 2D Doppler, Color Flow transthoracic echocardiogram. The study was technically difficult. Exam performed in department. Left Ventricle Moderat e concentric left ventricular hypertrophy. D shaped septum in diastole. The estimated ejection fraction is 45 %. Septal motion consistent with IVCD. There is mild to moderate global hypokinesis of the l eft ventricle. Right Ventricle Severely dilated right ventricle. Moderate global right ventricular systolic dysfunction. Atria The left atrium is severely enlarged. The right atrium is severely enlarg ed. Normal atrial septum. Mitral Valve The mitral valve is structurally normal. No prolapse or stenosis seen. Mild (1+) mitral valve insufficiency. Tricuspid Valve Normal tricuspid valve. Mild (1+) tri cuspid valve insufficiency. Right ventricular systolic pressure estimated to be 60 mmHg. Moderate pulmonary hypertension. Aortic Valve Trisinus/trileaflet aortic valve. Mild diffuse aortic valve thicke judy. Pulmonic Valve Normal pulmonic valve. Mild (1+) pulmonic valve insufficiency. Great Vessels Normal aortic root. Normal arch. Normal inferior vena cava. Inferior vena cava collapse with sniff. P ericardium/Pleural No pericardial effusion. Medication 22 gauge I.V. with prn adaptor inserted into right arm. Definity0.3ml given slow IV push to enhance endocardial definition. MMode/2D Measurements AND Calculations LVIDd: 4.5 cm IVSd: 1.5 cm LVOT diam: 2.1 cm LVIDs: 3.7 cm LVPWd: 1.5 cm LVOT area: 3.3 cm2 RVDd: 4.4 cm FS: 17.3 % Ao root diam: 3.1 cm LAV(MOD-bp): 78.3 ml LA dimension: 5.5 cm LAV(MOD- bp) Indexed: 31.4 ml/m2 LA A4 area: 25.3 cm2 LAV(MOD-sp2): 82.6 ml LAV(MOD-sp4): 76.0 ml RA A4 area: 24.2 cm2 Doppler Measurements AND Calculations MV E max sanjuana: 115.6 cm/sec Lat Peak E' Sanjuana: 9.5 cm/sec Med Peak E' Sanjuana: 5.6 cm/sec E/E' lat: 12.2 E/E' med: 20.5 Ao V2 max: 127.2 cm/sec LV V1 max: 92.5 cm/sec PA V2 max: 84.4 cm/sec Ao max P.5 mmHg LV V1 max P.4 mmHg PELON(V,D): 2.4 cm2 TR max sanjuana: 308.8 cm/sec TR max P.4 mmHg Interpretation Summary Moderate concen tric left ventricular hypertrophy. The estimated ejection fraction is 45 %. There is mild to moderate global hypokinesis of the left ventricle. D shaped septum in diastole. Severely dilated right ventri norma. Moderate global right ventricular systolic dysfunction. The left atrium is severely enlarged. The right atrium is severely enlarged. Mild (1+) mitral valve insufficiency. Mild (1+) tricuspid valve insufficiency. Right ventricular systolic pressure estimated to be 60 mmHg. Moderate pulmonary hypertension. Compared to echo report dated 05/10/2009, LV function has worsened from 60% to 45%, RVSP has increased from 39 to 60 mm Hg, and pt now appears to be in atrial fibrillation. Ordering Physicia n: Leo Reyes Referring Physician: Gloria Alvarado D.O. Performed By: Jj Munoz RCS 11/18/16 0942 Date Michoacano Germain MD CC: Gloria Alvarado DO; Leo Reyes AUTOMOTIVE PROJECT ENGINEER Date Dictated: 11/15/1654 Date Transcribed: 11/18/16941 Screening Technician: Signed 21-Aug-2015 12 Lead Electrocardiogram Result: Comments: See Note; NOTES: [facility] Cardiovascular Services [address] [place] [address] 12 Lead EKG 08/18/15 0857 MR#: [id number] Acct: [id number] Name: JV JONES JR Rep #: [id number] : 1945 69 From: Michoacano Germain MD Attending Dr: Gloria Chatman DPM Status: DEP [facility] Ordering Dr: Titi Frye MD Date: 08/18/15 Location: [facility] Sex: M C Admit inderjit: Test Reason : BRADYCARDIA Blood Pressure : / mmHG Vent. Rate : 052 BPM Atrial Rate : 052 BPM P-R Int : 170 ms QRS Dur : 082 ms QT Int : 448 ms P-R-T Axes : 017 -32 048 degrees QT c Int : 416 ms Sinus bradycardia with marked sinus arrhythmia with Premature ventricular complexes or Fusion complexes Left axis deviation Nonspecific T wave abnormality Abnormal ECG Confirmed MICHOACANO Archer ([id number]), editor magazine ALEXIS RO ([id number]) on 08/21/2015 1:14:44 PM Referred By: VERONICA Confirmed By:MICHOACANO GERMAIN 08/21/15 1314 Date Da salud Germain MD CC: Gloria Alvarado DO Date Dictated: 08/18/15856 Date Transcribed: 08/18/15856 Screening Technician: Signed 20-Aug-2015 Operative Report Result: Comments: See Note; NOTES: [facility] Medical Records Department [address] [place] [address] Operative Report MR#: [id number] Acct: [id number] Name: FRANCESCO DURHAM JR Rep #: [id number] : 1945 69 From: Gloria Chatman DPM PCP: Gloria Alvarado DO Status: DEP [facility] DATE OF SERVICE: 08/18/2015 DATE OF SERVICE: August 18, 2015. SURGEON: Gloria Chatman D.P.M. UNIVERSITY ARCHIVIST: Morgan Branch, PGY-3. 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 Fifth digit arthroplasty of the proximal interphalangeal joint with derotational skin plasty, right foot 2. Fifth digit arthroplasty of the proximal interphalangeal cinthia int with derotational skin plasty, left foot ANESTHESIA: MAC and local. HEMOSTASIS: Well-padded pneumatic ankle tourniquet at 250 mmHg, bilateral. ESTIMATED BLOOD LOSS: Minimal, less than 30 m L MATERIALS: 2-0 Vicryl and 4-0 nylon. INJECTIONS: Preoperative: 10 mL of 1:1 mixture of 0.5% Marcaine plain and 1% lidocaine plain administered in distal fifth ray block fashion bilateral COMP LICATIONS: None. SPECIMENS: None. INDICATIONS: This 69 year old male with significant past medical history of hypertension, pulmonary disease, peripheral vascular disease s/p stenting, and neurop athy continues to complain of bilateral fifth toe deformities and pain. He had an ulceration to the fifth left toe earlier this year and was healed with local wound care. He has reoccurance of callous formation to the dorsal lateral fifth digits that are semirigid dorsal contraction with some varus rotation. No local signs of infection are noted at this time. He has capillary fill time less than 3 seconds to the digits and loss of epicritic sensation with 10 g SW monofilament noted. Preoperative xrays demonstrate dorsal contraction at the proximal interphalangeal joint of the fifth digit with varus rotation. no evidence of periosteal reaction nor soft tissue emphysema is noted. There is a left fifth metatarsal Sarabia fracture that is non displaced that is also noted. He had lower extremity intervention including stenting with vascular surgeon, Dr. Cheung, in which no additional intervention was recommended at his recent follow up. He continues on Plavix and aspirin. His most recent MARIE included right 0.98, left 1.09, and bi/triphasic waveforms to the ankles. The preoperative diagnostic data including vascular studies, xrays of feet and chest, pulmonary spirometry test, EKG, lab work was reviewed. He was evaluated further for a potential UTI a couple weeks before surgery and this was all managed by PCP Dr. Alvarado whom also provided medical clearance. This is a curative procedure to prevent future preulcerative and ulcerative lesions to the toes in the future. The preoperative indications, planned procedures, benefits, risks, complications, and anticipated healing time and manage ment were discussed in detail. He understands and elects to proceed at this time. No guarantees were made. The surgical limb and consent were signed. All of his questions were answered. PROCEDURE IN DETAIL: The patient was transported to the operating room via cart and placed on the operating room table in the supine position. Final verification of the surgery, patient, and limb designation was performed via the timeout procedure. MAC anesthesia was initiated by the anesthesia team. The preoperative antibiotic was administered as ordered. The preoperative injection was administered as descr ibed above. He was bumped to allow good exposure. Bilateral ankle tourniquets were applied. Bilateral lower extremities were prepped and draped in the usual aseptic manner. Attention was first directe d to the left foot in which an esmark bandage was used to exanguinate the left lower extremity. Surgery began as the following: A semi elliptical incision was made through the skin only on the dorsal lateral fifth digit of the left foot with the following orientation: dorsal medial to proximal lateral with the center at the apex of the deformity which is the prominent proximal phalanx dorsal later al head. Blunt dissection was performed down to the extensor digitorum longus slip. Care was taken to identify, protect, and retract all neurovascular structures at this time and throughout the remai nder of the case. A horizontal incision was made to incise the extensor tendon and to enter the proximal interphalangeal joint. A fifteen blade was used to carefully reflect the collateral ligaments o ff of the proximal phalanx head to gain good exposure. A sagittal saw was next used to resect the head of the proximal phalanx and a ronguer was used to smooth out the edges. A kelikian pushup test and loading of the plantar foot was performed to ensure adequate reduction of the deformity was achieved. The offending prominence was resolved. Saline copious irrigation was performed. The extensor tendo n and lateral collateral ligaments were reapproximated with vicryl. The tourniquet was deflated at this time and brisk capillary refill time was noted to all digits of the left foot. The skin was reap proximated with nylon using horizontal mattress and simple suture technique. A rectus position in all three planes was noted and additional bone resection, flexor tendon release or skin plasty was not deemed necessary. A post operative dressing consisting of betadine soaked adaptic, betadine gauze splint to maintain rectus position, dry guaze, aman, and LALY wrap was applied. A post operative kelli uroscopy xray was taken in which adequate resection was noted to the fifth digit proximal phalanx and a rectus position of the left fifth digit was achieved. Next, attention was directed to the right foot in which an esmark bandage was used to exanguinate the right lower extremity. The exact same procedure and findings as described on the left contralateral limb was performed and noted. The tourn iquet was deflated at the end of the surgical repair and brisk capillary refill time was noted to all digits of the right foot. Closure was performed and a post operative dressing was applied at this time as previously described for the contralateral limb. A post operative flouroscopy xray was taken in which adequate resection was noted to the fifth digit proximal phalanx and a rectus position of the right fifth digit was achieved. POST OPERATIVE: The patient tolerated the procedure and anesthesia well. He was transported to the PACU with vital signs stable and vascular status intact to donnell ateral lower extremities. He was advised to elevate and ice for pain and inflammation management. A prescription for post operative pain was provided. He has a right foot surgical shoe and a left foot CAM walker boot to offload his surgical sites and he was advised to wear at all times during ambulation only. Layered foam/plastazote insole lining was applied from the heel to the metatarsal head le vels to further offload the toe surgery sites. To keep the dressing, clean, dry, and intact until follow up in one week. To call the office sooner if questions or concerns. Post operative xrays were reviewed (dp and modified oblique) as noted above. A pacu xray was ordered but was unintentionally not performed; a new film will be obtained at office follow up. Gloria Chatman DPM T: BERT JOB : [id number] 08/20/15 1102 <Electronically signed by Gloria Chatman DPM> Date Gloria Chatman DPM Cosigner Signature (If Indicated ): Date CC: Gloria Alvarado DO; Gloria Chatman DPM Date Dictated: 08/19/15627 Date Transcribed: 08/19/15627 Screening Technician: Signed 18-Aug-2015 Toe(s) Min 2 Views Result: Comments: See Note; NOTES: [facility] Imaging Services [address] [place] [address] Verdabon 4d Toe(s) Min 2 Views MR#: [id number] Acct: [id number] Name: JV REGAN Rep #: [id number] : 1945 M 69 From: Navdeep Canseco MD PCP: Gloria Alvarado DO Status: [facility] Study: Toe(s) Min 2 Views Date of Exam: 08/18/15 Exam# [id number] Ordering Dr: Gloria Elizabeth DPM STUDY: X-RAY RIGHT FOOT, FIFTH TOE REASON FOR EXAM: Male, 69 years old. Arthroplasty of the right fifth toe. TECHNIQUE: 4 cone-down view(s) of the toe were obtained intraoperative ly. COMPARISON: None. FINDINGS: Normal visualized metatarsus. Normal metatarsophalangeal (M.T.P) joint. Normal interphalangeal joints. There has been resection of the distal portion of the proximal phalanx of the fifth toe. The soft tissue structures are unremarkable. IMPRESSION: There has been resection of the dista l aspect of the proximal phalanx of the fifth toe. Electronically Signed: Navdeep Canseco MD at 10:37 EST Tel [phone], Service support [phone], RAD/Toe(s) Min 2 Views IMPRESSION: There has been resection of the distal aspect of the proximal phalanx of the fifth toe. Electronically Signed: Navdeep Canseco MD at 1 0:37 EST Tel [phone], Service support [phone], CC: Gloria Alvarado DO; Gloria Chatman DPM Screening Technician: Signed 18-Aug-2015 Discharge Instruction Result: Comments: See Note; NOTES: [facility] Medical Records Department [address] [place] [address] Instructions for Home/Discharge Instructions 08/18/15 0849 MR#: [id number] Acct: [id number] Name: JV DURHAM JR Rep #: [id number] : 1945 69 From: Gloria Chatman DPM PCP: Gloria Alvarado DO Status: REG MDC Discharge Activity: May not drive while taking na rcotic pain medications. Weight Bearing Status: Partial weight bearing Call your doctor if your incision/area has: Continuous Slow Oozing, Sudden Increased Bleeding, Increased Pain/ Swelling, Increas ed Redness, Foul Smelling Discharge, Swelling at the incision site Call your doctor if you observe: Fever of 101 or Higher, Coldness, Increased Pain, Numbness or Tingling, Change in Color, Inability to urinate, Inability to have a bowel movement, Using more than one pad per hour, Shortness of breath, Dizziness, Fainting spells, Swelling in the ankles, Chest pain, Prolonged hiccoughing, Increased pa lpitations (irregular heartbeat), Calf discomfort, Uncontrolled pain Cleanse incision/area with: Keep Dressing Clean AND Dry Allergies/Adverse Reactions: Allergies No Known Allergies Allergy (Veri fied 05/06/13 13:35) Medications to take at Discharge Amlodipine [Norvasc] 5 mg PO DAILY 05/06/13 Aspirin [Aspirin, Baby] 81 mg PO DAILY@0800 05/06/13 Atorvastatin Calcium [Lipitor] 80 mg PO QHS 05/06/13 Clopidogrel Bisulfate [Plavix] 75 mg PO DAILY 05/06/13 Cyanocobalamin (Vitamin B-12) [Vitamin B-12] 1,000 mcg SL DAILY 05/06/13 Docusate Sodium [Colace] 100 mg PO BID 05/06/13 Fenofibrate [Tricor] 145 mg PO DAILY 05/06/13 Folic Acid 1 mg PO DAILY@0800 05/06/13 Hydrochlorothiazide [Hctz] 25 mg PO DAILY 05/06/13 Isosorbide Mononitrate [Imdur] 60 mg PO DAILY 05/06/13 Metoprolol Tartrate [Lopressor] 100 mg PO BID 05/06/13 Niacin [Slo-Niacin] 1,000 mg PO QHS 05/06/13 Potassium Chloride [Klor-Con 10] 20 meq PO BID 05/06/13 Primidone [Mysoline] 50 mg PO BID 05/06/13 Tiotropium Flora [Spiriva 18 MCG] 1 puff INHALATION DAILY 05/06/13 Valsartan [Diovan] 160 mg PO BID 05/06/13 Vit A/Vit C/Vit E/Zinc/Copper [Icaps Areds Formula Tablet] 1 each PO BID 05/06/13 Please Follow Up With: Gloria Chatman When: 1 week; call [phone] 08/18/15 0851 <Electronically signed by Gloria Chatman DPZion> Date Gloria Chatman DPM CC: Gloria Alvarado DO 11-Aug-2015 Carotid Duplex Ultrasound Result: Comments: See Note; NOTES: [facility] Cardiovascular Services [address] [place] [address] Carotid Duplex Ultrasound 07/31/15 1253 MR#: [id number] Acct: [id number] Name: JV DURHAM JR Rep #: [id number] : 1945 69 From: Jamie Cheung MD Attending Dr: Jamie Cheung MD Status: REG CLI Ordering Dr: Jamie Cheung MD Date: 07/31/15 Location: [facility] x: M C Admitted: Reason For Study: Carotid Bruit Rt. Velocities/BP Lt. Velocities/BP Prox CCA 93/11 cm/sec. Prox CCA 93/11 cm/sec. Mid CCA 150/10 cm/sec. Mid CCA 75/11 cm/sec. Dist CCA 94/1 6 cm/sec. Dist CCA 66/8 cm/sec. Prox ICA 119/20 cm/sec. Prox ICA 80/19 cm/sec. Mid ICA 91/17 cm/sec. Mid ICA 90/18 cm/sec. Dist ICA 92/18 cm/sec. Dist ICA 88/19 cm/sec. Rt. ICA/CCA = 0.79. Lt. ICA/C CA = 1.2. Prox ECA 238/17 cm/sec. Prox ECA 352/15 cm/sec. Rt. Vert. 64/8 cm/sec. Lt. Vert. 42/13 cm/sec. Right Extracranial There is heterogeneous, irregular atherosclerotic plaque noted in the rig ht common carotid artery. There is heterogeneous, irregular atherosclerotic plaque noted in the right internal carotid artery. There is heterogeneous, irregular atherosclerotic plaque noted in the ri ght external carotid artery. Antegrade flow is noted in the right vertebral artery. Left Extracranial There is heterogeneous, irregular atherosclerotic plaque noted in the left common carotid arter y. There is heterogeneous, irregular atherosclerotic plaque noted in the left internal carotid artery. The atherosclerotic plaque causes acoustic shadowing. There is heterogeneous, irregular atheros clerotic plaque noted in the left external carotid artery. Antegrade flow is noted in the left vertebral artery. Procedure Carotid Duplex 84872. Exam performed in department. 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 Mild (<50%) stenosis left extracranial internal carotid. Flow within the vertebral arteries is antegrade bilaterally. ____ Ordering Physician: Jamie Cheung Referring Physician: Gloria Alvarado D.O. Performed By: Sumi Morris, MENDEZ, RVT 08/11/15925 Date Jamie Cheung MD CC: Jamie Cheung MD; Gloria Alvarado DO Date Dictated: 07/31/15 1253 Date Transcribed: 08/11/15925 Screening Technician: Signed 02-Aug-2015 Chest PA and Lateral Result: Comments: See Note; NOTES: [facility] Imaging Services [address] [place] [address] Verdana 4d Chest PA and Lateral MR#: [id number] Acct: [id number] Name: JV DURHAM JR Rep #: [id number] : 1945 M 69 From: Navdeep Canseco MD PCP: Gloria Alvarado DO Status: PRE [facility] Study: Chest PA and Lateral Date of Exam: 08/02/15 Exam# [id number] Ordering Dr: Gloria Mcqueen DPM STUDY: X-RAY CHEST REASON FOR EXAM: Male, 69 years old. COPD. Preoperative evaluation. TECHNIQUE: PA and lateral views of the chest. COMPARISON: Comparison is made with prior study dated May 05, 2013. FINDINGS: Hyperinflation. Stable mild degree of increased markings at the lung bases suggestive of bibasilar scarring. There is blunting of both costophrenic angles posteriorly. Sternal cerclage wires and vascular clips are present from a prior sternotomy and coronary artery bypass graft procedure (CABG). Normal mediastinum and yovanny. Normal visualized pulmonary arteries. Normal visualized aortic arch and descending thoracic aorta. There are diffuse degenerative changes of the visualized thoracic spine. Normal visualiz ed ribs, clavicles, and shoulders. There is no demonstrated abnormality of the visualized soft tissue structures of the upper abdomen. IMPRESSION: Hyperinflati on. Findings suggestive of mild right basilar scarring. Electronically Signed: Navdeep Canseco MD at 11:11 EST Tel [phone], Service support [phone], ORD ER #: [id number] RAD/Chest PA and Lateral IMPRESSION: Hyperinflation. Findings suggestive of mild right basilar scarring. Electronically Signed: Navdeep Canseco MD at 11:11 EST Tel [phone], Service support [phone], CC: Gloria Chatman DPM Screening Technician: Signed 21-Jul-2015 Spirometry (13597) Comments: good effor tand curve mod obstruction Result: 21-Jul-2015 ELECTROCARDIOGRAM, COMPLETE (ECG) (30901) Comments: ekg showed normal sinus rhythym, normal axis, no acute st/t wave changes Result: [MEASUREMENTS ANALYSIS] Date of Test: 07/21/2015 12:20:53; Heart Rate: 65; CO Interval: 160; QRS: 102; QT Interval: 396; Corrected QT Interval (QTc): 404; P Wave [place]: 52; QRS Wave [place]: -33; T Wave Axi [place]: 51; Blood Pressure: 144/70 [ECG DIAGNOSTIC STATEMENTS] Date of Test: 07/21/2015 12:20:53; Summary: Sinus Rhythm WITHIN NORMAL LIMITS [MEASUREMENTS ANALYSIS] Date of Test: 07/21/2015 12:20:20; Heart Rate: 70; CO Interval: 158; QRS: 104; QT Interval: 400; Corrected QT Interval (QTc): 417; P Wave [place]: 51; QRS Wave [place]: -34; T Wave [place]: 50; Blood Pressure: 144/70 [ECG DIAGNOSTIC STATEMENTS] Date of Test: 07/21/2015 12:20:20; Summary: Sinus Rhythm - occasional ectopic ventricular beat -Left axis. ABNORMAL 17-May-2015 Vascular Test/LEAS/UEAS Result: Comments: See Note; NOTES: [facility] Cardiovascular Services [address] [place] [id number] [place] 4d Ankle Brachial Index MR#: [id number] Acct: [id number] Name : JV DURHAM JR Rep #: [id number] : 1945 69 From: Jamie Cheung MD Primary Care: Gloria Alvarado DO Status: REG CLI Ordering Dr: Jamie Cheung MD Sex: M C DATE OF SERVICE: 05/08/2015 ORDERING PHYSICIAN: Dr. Cheung. INTERPRETING PHYSICIAN: Dr. Cheung. DIAGNOSIS: History of iliac stenting with claudication. SCAN: Bilateral lower extremity ABIs. INTERPRETATION: Right lo wer extremity MARIE, pulsatile flow of the posterior tibial of 0.98, dorsalis pedis with 0.98 MARIE. Left lower extremity, more biphasic flow noted at the ankle with an MARIE of 1.09 of the posterior tibi al and 0.93 of the dorsalis pedis. IMPRESSION: Bilateral lower extremities with no evidence of significant arterial occlusive disease with the MARIE of 0.98 and triphasic flow on the right. The left w ith an MARIE of 1.09, which is more biphasic to triphasic noted. Jamie Cheung M.D. T: BERT JOB: [id number] 05/17/15 1126 <Electronically signed by Jamie Cheung MD> Date ___ Jamie Cheung MD CC: Jamie Cheung MD; Gloria Date Dictated: 05/10/15 0806 Date Transcribed: 05/10/15 0806 Screening Technician: Signed 07-Sep-2014 Vascular Test/LEAS/UEAS Result: Comments: See Note; NOTES: [facility] Cardiovascular Services [address] [place] [address] Ankle Brachial Index 08/31/14 1049 MR#: [id number] Acct: [id number] Name: JV LAND JR Rep #: [id number] : 1945 68 From: Jamie Cheung MD Attending Dr: Jamie Cheung MD Status: [facility] CLI Ordering Dr: Jamie Cheung MD Date: 08/31/14 Location: [facility] Sex: M C Ad mitted: DATE OF SCAN: August 31, 2014 ORDERING PHYSICIAN: Dr. Cheung. INTERPRETING PHYSICIAN: Dr. Cheung. DIAGNOSIS: Peripheral arterial disease status post iliac stent. SCAN: Bilateral lower extremity ABIs. INTERPRETATION: RIGHT LOWER EXTREMITY: There is normal pulsatile flow noted at the ankle, through the posterior tibial and dorsalis pedis with an MARIE of 0.99. LEFT LOWER EXT REMITY: Normal pulsatile flow noted at the ankle and the posterior tibial and dorsalis pedis with an MARIE of 1.02. IMPRESSION: Bilateral lower extremities with no evidence of significant arterial occ lusive disease with an MARIE of 0.99 on the right and 1.02 on the left. 09/07/14 1038 <Electronically signed by Jamie Cheung MD> Date _ Jamie Cheung MD CC: Jamie Cheung MD; Gloria Date Dictated: 08/31/14 1049 Date Transcribed: 08/31/14 1430 Screening Technician: WHITT Signed 11-Aug-2014 Kidney and Bladder Result: Comments: See Note; NOTES: [facility] Imaging Services [address] [place] [address] Ultrasound Report MR#: [id number] Acct: [id number] Name: JV DURHAM JR Rep #: [id number] : 1945 M 68 From: Navdeep Canseco MD PCP: Gloria Alvarado DO Status: REG CLI Study: Kidney and Bladder Date of Exam: 08/11/14 Exam# [id number] Ordering Dr: Ashlee Garrett STUDY: LURDES MARCELINO ULTRASOUND - COMPLETE REASON FOR EXAM: Male, 68 years old. Hematuria. TECHNIQUE: Ultrasound evaluation of the kidneys was performed with real-time and static dolan-scale imaging. COMPARISON: No ne. FINDINGS: RIGHT KIDNEY: Normal location of the right kidney, which is normal in size. The right kidney measures 11.6 cm x 5.3 cm x 6.0 cm. There is a indra l cortex of the right kidney. The renal cortex measures 1.8 cm. There is no right renal mass or cyst. There are no right renal calculi. There is no right hydronephrosis. DISTAL RIGHT URETER: There i s non-visualization of the distal right ureter. There is no demonstrated right ureterovesical junction calculus. There is no demonstrated right ureteral jet. LEFT KIDNEY: Normal location of the left kidney, which is normal in size. The left kidney measures 11.4 cm x 4.7 cm x 6.4 cm. There is a normal cortex of the left kidney. The renal cortex measures 1.9 cm. There is no left renal mass or cys t. I suspect a 7 mm non-obstructive calculus in the midportion of the left kidney. There is no left hydronephrosis. DISTAL LEFT URETER: There is non- visualization of the distal left ureter. There is no demonstrated left ureterovesical junction calculus. There is no demonstrated left ureteral jet. BLADDER: The bladder is empty at the time of the examination. IMPRESSION: I suspect a 7 mm calculus in the left kidney. There is no evidence of hydronephrosis. Electronically Signed: Navdeep Canseco MD at 13:34 EST Tel [phone], Service s upport [phone], CC: Ashlee Garrett; Gloria Alvarado DO Screening Technician: Signed 26-Jul-2014 Carotid Duplex Ultrasound Result: Comments: See Note; NOTES: [facility] Cardiovascular Services [address] [place] [address] Carotid Duplex Ultrasound 07/14/14 1231 MR#: [id number] Acct: [id number] Nam e: JV DURHAM Rep #: [id number] : 1945 68 From: Jamie Cheung MD Attending Dr: Jamie Cheung MD Status: REG CLI Ordering Dr: Jamie Cheung MD Date: 07/14/14 Location: [facility] Sex: M C Admitted: Rt. Velocities/BP Lt. Velocities/BP Prox CCA 72.1/12.3 cm/sec. Prox CCA 91.9/ 16.5 cm/sec. Mid CCA 88.5/14.7 cm/sec. Mid CCA 74.6/14.9 cm/sec. Dist CCA 87.9/10.6 cm/sec. Dist CCA 75 .4/ 17.3 cm/sec. Prox ICA 81.7/18.1 cm/sec. Prox ICA 70.7/ 18.1 cm/sec. Mid ICA 80.9/20.4 cm/sec. Mid ICA 86.4/22.0 cm/sec. Dist ICA 86.4/23.6 cm/sec. Dist ICA 78.6/ 19.6 cm/sec. Rt. ICA/CCA = 1.0. Lt. ICA/CCA = 1.2. Prox ECA 147/12.6 cm/sec. Prox ECA 266/29.9 cm/sec. Rt. Vert. 54.2/9.43 cm/sec. Lt. Vert. 36.4/ 11.1 cm/sec. Right Extracranial There is heterogeneous, irregular atherosclerotic plaque noted in the right common carotid artery. There is heterogeneous, irregular atherosclerotic plaque noted in the right internal carotid artery. There is heterogeneous, irregular atherosclerot ic plaque noted in the right external carotid artery. Antegrade flow is noted in the right vertebral artery. There is heterogeneous, irregular atherosclerotic plaque noted in the right bulb. Left Extracranial There is heterogeneous, irregular atherosclerotic plaque noted in the left common carotid artery. There is heterogeneous, irregular atherosclerotic plaque noted in the left internal car otid artery. The atherosclerotic plaque causes acoustic shadowing. There is heterogeneous, irregular atherosclerotic plaque noted in the left external carotid artery. Antegrade flow is noted in the left vertebral artery. There is heterogeneous, irregular atherosclerotic plaque noted in the left bulb. Acoustic shadowing. Procedure Carotid Duplex 85381. The exam was diagnostic. Exam performed i n department. Interpretation Summary Flow within the vertebral arteries is antegrade bilaterally. Mild (<50%) stenosis right extracranial internal carotid. Mild (<50%) stenosis left extracranial internal carotid. Ordering Physician: Jamie Cheung Referring Physician: Landon Alvarado D.O. Performed By: Jamie Nielson RVT 07/26/142015 Date Jamie hernandez MD CC: Jamie Cheung MD; Gloria Alvarado DO Date Dictated: 07/14/14 1231 Date Transcribed: 07/26/142015 Screening Technician: Signed 30-Jun-2014 Spirometry (26143) Comments: ostructive pattern poor technique Result: 06-Apr-2014 Vascular Test/LEAS/UEAS Result: Comments: See Note; NOTES: [facility] Cardiovascular Services [address] [place] [address] Ankle Brachial Index 04/01/14 1006 MR#: [id number] Acct: [id number] Name: JV LAND JR Rep #: [id number] : 1945 68 From: Jamie Cheung MD Attending Dr: Jamie Cheung MD Status: REG CLI Ordering Dr: Jamie Cheung MD Date: 04/01/14 Location: [facility] Sex: M C Ad mitted: DATE OF SCAN: March 18, 2014 ORDERING PHYSICIAN: Dr. Cheung. INTERPRETING PHYSICIAN: Dr. Cheung. DIAGNOSIS: Peripheral arterial disease with a history of iliac stenting. SCAN: Lower extremity ABIs. INTERPRETATION: Right lower extremity ABIs, there is pulsatile flow noted at the ankle with triphasic flow noted of the posterior tibial with an MARIE of 0.97. Triphasic flow a lso noted at the DP with an MARIE of 1.06. Left lower extremity ABIs, normal pulsatile flow down noted to the ankle with the posterior tibial with triphasic flow and MARIE of 0.96. DP with more of a bip hasic flow and an MARIE of 0.86. IMPRESSION: 1. Right lower extremity, no evidence of significant occlusive disease in a nonexercise patient with triphasic flow noted and an MARIE of 1.06. 2. Left lowe r extremity, no evidence of significant arterial occlusive disease in a nonexercise patient with an MARIE of 0.96 and triphasic flow noted. 04/06/14 1125 <Electronically signed by Jamie whitaker MD> Date Jamie Cheung MD CC: Jamie Cheung MD; Gloria Alvarado DO Date Dictated: 04/01/14 1006 Date Transcribed: 04/01/14 1238 Screening Technician: JOSE EDUARDO Signed 17-Mar-2014 Spirometry (69596) Result: 03-Nov-2013 Spirometry (12662) Comments: good effort and curve mod obstr Result: Immunization Name Dates Details Pneumococcal (2 years and up) on: 05-May-2009 Comments: Lot #[id number]-right [id number] by:[facility] Family History Unknown Family Member Name Dates Details Family Members In General Comments: ETOH, Blood disorder, DM, Heart/Lung, HBP, Kidney disease, Strokefather 92mother 89 Status: Active Social History Name Dates Details Caffeine Use Status: Active Exercise History Comments: None Status: Active Living Situation Comments: , heterosexual Status: Active 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 Status: Active Smoking Status Name Dates Details Former smoker Vital Signs Date Test Result Details :30 Temperature 97.9 f Comments: Method: Temporal Pulse 85 /min Comments: Pattern: Regular Respiration Rate 16 /min Comments: Pattern: Unlabored BP Systolic 124 mm[Hg] Comments: Patient Position: Sitting; Cuff Location: Left Arm; Cuff Size: Standard BP Diastolic 70 mm[Hg] Comments: Patient Position: Sitting; Cuff Location: Left Arm; Cuff Size: Standard Weight 267 lb Height 68 in Body Mass Index Calculated 40.6 kg/m2 Body Surface Area Calculated 2.31 m2 :02 Temperature 98.4 f Comments: Method: Temporal Pulse 75 /min Comments: Pattern: Regular Respiration Rate 16 /min Comments: Pattern: Unlabored BP Systolic 138 mm[Hg] Comments: Patient Position: Sitting; Cuff Location: Left Arm; Cuff Size: Standard BP Diastolic 78 mm[Hg] Comments: Patient Position: Sitting; Cuff Location: Left Arm; Cuff Size: Standard Weight 267 lb Height 68 in Body Mass Index Calculated 40.6 kg/m2 Body Surface Area Calculated 2.31 m2 :58 Temperature 97.7 f Comments: Method: Temporal Pulse 95 /min Comments: Pattern: Regular Respiration Rate 16 /min Comments: Pattern: Unlabored BP Systolic 140 mm[Hg] Comments: Patient Position: Sitting; Cuff Location: Left Arm; Cuff Size: Standard BP Diastolic 72 mm[Hg] Comments: Patient Position: Sitting; Cuff Location: Left Arm; Cuff Size: Standard Weight 267 lb Height 68 in Body Mass Index Calculated 40.6 kg/m2 Body Surface Area Calculated 2.31 m2 :53 Temperature 97.2 f Comments: Method: Temporal Pulse 80 /min Comments: Pattern: Regular Respiration Rate 16 /min Comments: Pattern: Unlabored BP Systolic 115 mm[Hg] Comments: Patient Position: Sitting; Cuff Location: Left Arm; Cuff Size: Standard BP Diastolic 70 mm[Hg] Comments: Patient Position: Sitting; Cuff Location: Left Arm; Cuff Size: Standard Weight 273 lb Height 68 in Body Mass Index Calculated 41.51 kg/m2 Body Surface Area Calculated 2.33 m2 :49 Temperature 96.1 f Comments: Method: Temporal Pulse 87 /min Comments: Pattern: Regular Respiration Rate 16 /min Comments: Pattern: Unlabored O2 SAT 96 % Comments: Room air BP Systolic 120 mm[Hg] Comments: Patient Position: Sitting; Cuff Location: Left Arm; Cuff Size: Standard BP Diastolic 80 mm[Hg] Comments: Patient Position: Sitting; Cuff Location: Left Arm; Cuff Size: Standard Weight 273 lb Height 68 in Body Mass Index Calculated 41.51 kg/m2 Body Surface Area Calculated 2.33 m2 :35 Comments: orthossupine: 136/78 P 57sittin/70 P 69standin/70 P 78 Temperature 96.5 f Comments: Method: Temporal Pulse 70 /min Comments: Pattern: Regular Respiration Rate 16 /min Comments: Pattern: Unlabored O2 SAT 98 % Comments: 3L O2 BP Systolic 128 mm[Hg] Comments: Patient Position: Sitting; Cuff Location: Left Arm; Cuff Size: Standard BP Diastolic 68 mm[Hg] Comments: Patient Position: Sitting; Cuff Location: Left Arm; Cuff Size: Standard Weight 271 lb Height 68 in Body Mass Index Calculated 41.2 kg/m2 Body Surface Area Calculated 2.33 m2 :35 Temperature 98.8 f Comments: Method: Temporal Pulse 63 /min Comments: Pattern: Regular Respiration Rate 16 /min Comments: Pattern: Unlabored BP Systolic 120 mm[Hg] Comments: Patient Position: Sitting; Cuff Location: Left Arm; Cuff Size: Standard BP Diastolic 60 mm[Hg] Comments: Patient Position: Sitting; Cuff Location: Left Arm; Cuff Size: Standard Weight 277 lb Height 68 in Body Mass Index Calculated 42.12 kg/m2 Body Surface Area Calculated 2.35 m2 :32 Temperature 96.7 f Comments: Method: Temporal Pulse 90 /min Comments: Pattern: Regular Respiration Rate 16 /min Comments: Pattern: Unlabored O2 SAT 94 % Comments: 3L O2 BP Systolic 122 mm[Hg] Comments: Patient Position: Sitting; Cuff Location: Left Arm; Cuff Size: Standard BP Diastolic 68 mm[Hg] Comments: Patient Position: Sitting; Cuff Location: Left Arm; Cuff Size: Standard Weight 281 lb Height 68 in Body Mass Index Calculated 42.73 kg/m2 Body Surface Area Calculated 2.36 m2 :03 Temperature 96.8 f Comments: Method: Temporal Pulse 80 /min Comments: Pattern: Regular Respiration Rate 18 /min Comments: Pattern: Unlabored BP Systolic 122 mm[Hg] Comments: Patient Position: Sitting; Cuff Location: Left Arm; Cuff Size: Standard BP Diastolic 68 mm[Hg] Comments: Patient Position: Sitting; Cuff Location: Left Arm; Cuff Size: Standard Weight 298 lb Height 68 in Body Mass Index Calculated 45.31 kg/m2 Body Surface Area Calculated 2.42 m2 :14 Temperature 96.6 f Comments: Method: Temporal Pulse 78 /min Comments: Pattern: Regular Respiration Rate 17 /min Comments: Pattern: Unlabored O2 SAT 99 % Comments: Room air BP Systolic 114 mm[Hg] Comments: Patient Position: Sitting; Cuff Location: Left Arm; Cuff Size: Large BP Diastolic 64 mm[Hg] Comments: Patient Position: Sitting; Cuff Location: Left Arm; Cuff Size: Large Weight 303 lb Height 68 in Body Mass Index Calculated 46.07 kg/m2 Body Surface Area Calculated 2.44 m2 :57 Temperature 96.6 f Comments: Method: Temporal Pulse 102 /min Comments: Pattern: Regular Respiration Rate 18 /min Comments: Pattern: Unlabored O2 SAT 94 % Comments: Room air BP Systolic 110 mm[Hg] Comments: Patient Position: Sitting; Cuff Location: Left Arm; Cuff Size: Large BP Diastolic 66 mm[Hg] Comments: Patient Position: Sitting; Cuff Location: Left Arm; Cuff Size: Large Weight 303 lb Height 68 in Body Mass Index Calculated 46.07 kg/m2 Body Surface Area Calculated 2.44 m2 :28 Temperature 96.6 f Comments: Method: Temporal Pulse 88 /min Comments: Pattern: Regular Respiration Rate 17 /min Comments: Pattern: Unlabored BP Systolic 100 mm[Hg] Comments: Patient Position: Sitting; Cuff Location: Left Arm; Cuff Size: Large BP Diastolic 64 mm[Hg] Comments: Patient Position: Sitting; Cuff Location: Left Arm; Cuff Size: Large Weight 300 lb Height 68 in Body Mass Index Calculated 45.61 kg/m2 Body Surface Area Calculated 2.43 m2 :23 Temperature 98.5 f Comments: Method: Temporal Pulse 62 /min Comments: Pattern: Regular Respiration Rate 16 /min Comments: Pattern: Unlabored O2 SAT 95 % Comments: Room air BP Systolic 118 mm[Hg] Comments: Patient Position: Sitting; Cuff Location: Left Arm; Cuff Size: Large BP Diastolic 66 mm[Hg] Comments: Patient Position: Sitting; Cuff Location: Left Arm; Cuff Size: Large Weight 301 lb Height 68 in Body Mass Index Calculated 45.77 kg/m2 Body Surface Area Calculated 2.43 m2 :27 Temperature 98.5 f Comments: Method: Temporal Pulse 65 /min Comments: Pattern: Regular Respiration Rate 16 /min Comments: Pattern: Unlabored O2 SAT 95 % Comments: Room air BP Systolic 144 mm[Hg] Comments: Patient Position: Sitting; Cuff Location: Left Arm; Cuff Size: Large BP Diastolic 70 mm[Hg] Comments: Patient Position: Sitting; Cuff Location: Left Arm; Cuff Size: Large Weight 305 lb Height 68 in Body Mass Index Calculated 46.37 kg/m2 Body Surface Area Calculated 2.45 m2 :32 Comments: has had eye exam with glaucoma screen within last year2/3 WORDS - whisper test Temperature 99.8 f Comments: Method: Temporal Pulse 76 /min Comments: Pattern: Regular Respiration Rate 16 /min Comments: Pattern: Unlabored O2 SAT 97 % Comments: Room air BP Systolic 126 mm[Hg] Comments: Patient Position: Sitting; Cuff Location: Left Arm; Cuff Size: Standard BP Diastolic 78 mm[Hg] Comments: Patient Position: Sitting; Cuff Location: Left Arm; Cuff Size: Standard Weight 299.8 lb Height 68 in Body Mass Index Calculated 45.58 kg/m2 Body Surface Area Calculated 2.43 m2 :08 Temperature 97 f Comments: Method: Temporal Pulse 62 /min Comments: Pattern: Regular Respiration Rate 18 /min Comments: Pattern: Unlabored O2 SAT 97 % Comments: Room air BP Systolic 136 mm[Hg] Comments: Patient Position: Sitting; Cuff Location: Left Arm; Cuff Size: Large BP Diastolic 64 mm[Hg] Comments: Patient Position: Sitting; Cuff Location: Left Arm; Cuff Size: Large Weight 305 lb Height 68 in Body Mass Index Calculated 46.37 kg/m2 Body Surface Area Calculated 2.45 m2 :04 Temperature 97.1 f Comments: Method: Oral Pulse 74 /min Comments: Pattern: Regular Respiration Rate 18 /min Comments: Pattern: Unlabored BP Systolic 122 mm[Hg] Comments: Patient Position: Sitting; Cuff Location: Left Arm; Cuff Size: Large BP Diastolic 72 mm[Hg] Comments: Patient Position: Sitting; Cuff Location: Left Arm; Cuff Size: Large Weight 302 lb Height 68 in Body Mass Index Calculated 45.92 kg/m2 Body Surface Area Calculated 2.44 m2 :57 Temperature 97.9 f Comments: Method: Oral Pulse 73 /min Comments: Pattern: Regular O2 SAT 97 % Comments: Room air BP Systolic 122 mm[Hg] Comments: Patient Position: Sitting; Cuff Location: Left Arm; Cuff Size: Standard BP Diastolic 72 mm[Hg] Comments: Patient Position: Sitting; Cuff Location: Left Arm; Cuff Size: Standard Weight 297 lb Height 68 in Body Mass Index Calculated 45.16 kg/m2 Body Surface Area Calculated 2.42 m2 :21 Temperature 97.2 f Comments: Method: Oral Pulse 64 /min Comments: Pattern: Regular Respiration Rate 18 /min O2 SAT 96 % Comments: Room air BP Systolic 130 mm[Hg] Comments: Patient Position: Sitting; Cuff Location: Left Arm; Cuff Size: Standard BP Diastolic 78 mm[Hg] Comments: Patient Position: Sitting; Cuff Location: Left Arm; Cuff Size: Standard Weight 297 lb Height 68 in Body Mass Index Calculated 45.16 kg/m2 Body Surface Area Calculated 2.42 m2 :27 Temperature 97.6 f Comments: Method: Oral Pulse 82 /min Comments: Pattern: Regular Respiration Rate 18 /min Comments: Pattern: Unlabored BP Systolic 136 mm[Hg] Comments: Patient Position: Sitting; Cuff Location: Left Arm; Cuff Size: Standard BP Diastolic 68 mm[Hg] Comments: Patient Position: Sitting; Cuff Location: Left Arm; Cuff Size: Standard Weight 297 lb Height 68 in Body Mass Index Calculated 45.16 kg/m2 Body Surface Area Calculated 2.42 m2 :13 Temperature 97.3 f Comments: Method: Oral Pulse 63 /min Comments: Pattern: Regular Respiration Rate 20 /min Comments: Pattern: Unlabored O2 SAT 96 % Comments: Room air BP Systolic 128 mm[Hg] Comments: Patient Position: Sitting; Cuff Location: Left Arm; Cuff Size: Large BP Diastolic 84 mm[Hg] Comments: Patient Position: Sitting; Cuff Location: Left Arm; Cuff Size: Large Weight 295 lb Height 68 in Body Mass Index Calculated 44.85 kg/m2 Body Surface Area Calculated 2.41 m2 :52 Temperature 98.5 f Comments: Method: Oral Pulse 70 /min Comments: Pattern: Regular Respiration Rate 16 /min Comments: Pattern: Unlabored BP Systolic 140 mm[Hg] Comments: Patient Position: Sitting; Cuff Location: Left Arm; Cuff Size: Standard BP Diastolic 60 mm[Hg] Comments: Patient Position: Sitting; Cuff Location: Left Arm; Cuff Size: Standard Weight 295 lb Height 68 in Body Mass Index Calculated 44.85 kg/m2 Body Surface Area Calculated 2.41 m2 :05 Comments: This is post- 6min walk. Pulse 78 /min Comments: Pattern: Regular Respiration Rate 24 /min Comments: Pattern: Unlabored O2 SAT 95 % Comments: Room air BP Systolic 154 mm[Hg] Comments: Patient Position: Sitting; Cuff Location: Left Arm; Cuff Size: Large BP Diastolic 64 mm[Hg] Comments: Patient Position: Sitting; Cuff Location: Left Arm; Cuff Size: Large :41 Pulse 62 /min Comments: Pattern: Regular Respiration Rate 18 /min Comments: Pattern: Unlabored BP Systolic 120 mm[Hg] Comments: Patient Position: Sitting; Cuff Location: Left Arm; Cuff Size: Large BP Diastolic 60 mm[Hg] Comments: Patient Position: Sitting; Cuff Location: Left Arm; Cuff Size: Large Weight 289 lb Height 68 in Body Mass Index Calculated 43.94 kg/m2 Body Surface Area Calculated 2.39 m2 :23 Temperature 98.9 f Comments: Method: Oral Pulse 64 /min Comments: Pattern: Regular Respiration Rate 15 /min O2 SAT 98 % Comments: Room air BP Systolic 108 mm[Hg] Comments: Patient Position: Sitting; Cuff Location: Left Arm; Cuff Size: Standard BP Diastolic 52 mm[Hg] Comments: Patient Position: Sitting; Cuff Location: Left Arm; Cuff Size: Standard Weight 289 lb Height 68 in Body Mass Index Calculated 43.94 kg/m2 Body Surface Area Calculated 2.39 m2 :54 Temperature 98.6 f Comments: Method: Temporal Pulse 62 /min Comments: Pattern: Regular Respiration Rate 16 /min Comments: Pattern: Unlabored O2 SAT 93 % Comments: Room air BP Systolic 132 mm[Hg] Comments: Patient Position: Sitting; Cuff Location: Left Arm; Cuff Size: Standard BP Diastolic 74 mm[Hg] Comments: Patient Position: Sitting; Cuff Location: Left Arm; Cuff Size: Standard Weight 289 lb Height 68 in Body Mass Index Calculated 43.94 kg/m2 Body Surface Area Calculated 2.39 m2 :21 Temperature 98 f Pulse 56 /min Comments: Pattern: Regular Respiration Rate 18 /min Comments: Pattern: Unlabored BP Systolic 108 mm[Hg] Comments: Patient Position: Sitting; Cuff Location: Left Arm; Cuff Size: Large BP Diastolic 52 mm[Hg] Comments: Patient Position: Sitting; Cuff Location: Left Arm; Cuff Size: Large Weight 287 lb Height 68 in Body Mass Index Calculated 43.64 kg/m2 Body Surface Area Calculated 2.38 m2 :04 Temperature 98.5 f Pulse 58 /min Comments: Pattern: Regular Respiration Rate 18 /min Comments: Pattern: Unlabored BP Systolic 114 mm[Hg] Comments: Patient Position: Sitting; Cuff Location: Left Arm; Cuff Size: Large BP Diastolic 72 mm[Hg] Comments: Patient Position: Sitting; Cuff Location: Left Arm; Cuff Size: Large Weight 288 lb Height 68 in Body Mass Index Calculated 43.79 kg/m2 Body Surface Area Calculated 2.39 m2 :20 Temperature 98.1 f Pulse 62 /min Comments: Pattern: Regular Respiration Rate 18 /min Comments: Pattern: Unlabored BP Systolic 122 mm[Hg] Comments: Patient Position: Sitting; Cuff Location: Left Arm; Cuff Size: Large BP Diastolic 64 mm[Hg] Comments: Patient Position: Sitting; Cuff Location: Left Arm; Cuff Size: Large Weight 290 lb Height 68 in Body Mass Index Calculated 44.09 kg/m2 Body Surface Area Calculated 2.39 m2 :00 Temperature 97.7 f Pulse 64 /min Comments: Pattern: Regular Respiration Rate 18 /min Comments: Pattern: Unlabored BP Systolic 138 mm[Hg] Comments: Patient Position: Sitting; Cuff Location: Left Arm; Cuff Size: Large BP Diastolic 62 mm[Hg] Comments: Patient Position: Sitting; Cuff Location: Left Arm; Cuff Size: Large Weight 284 lb Height 68 in Body Mass Index Calculated 43.18 kg/m2 Body Surface Area Calculated 2.37 m2 :27 Temperature 98.5 f Comments: Method: Oral Pulse 66 /min Comments: Pattern: Regular Respiration Rate 18 /min Comments: Pattern: Unlabored BP Systolic 138 mm[Hg] Comments: Patient Position: Sitting; Cuff Location: Left Arm; Cuff Size: Standard BP Diastolic 78 mm[Hg] Comments: Patient Position: Sitting; Cuff Location: Left Arm; Cuff Size: Standard Weight 292 lb Height 68 in Body Mass Index Calculated 44.4 kg/m2 Body Surface Area Calculated 2.4 m2 :43 Temperature 98.1 f Pulse 58 /min Comments: Pattern: Regular Respiration Rate 18 /min Comments: Pattern: Unlabored BP Systolic 128 mm[Hg] Comments: Patient Position: Sitting; Cuff Location: Left Arm; Cuff Size: Large BP Diastolic 70 mm[Hg] Comments: Patient Position: Sitting; Cuff Location: Left Arm; Cuff Size: Large Weight 292 lb Height 68 in Body Mass Index Calculated 44.4 kg/m2 Body Surface Area Calculated 2.4 m2 :02 Temperature 97.6 f Pulse 76 /min Comments: Pattern: Regular Respiration Rate 18 /min Comments: Pattern: Unlabored BP Systolic 132 mm[Hg] Comments: Patient Position: Sitting; Cuff Location: Left Arm; Cuff Size: Standard BP Diastolic 62 mm[Hg] Comments: Patient Position: Sitting; Cuff Location: Left Arm; Cuff Size: Standard Weight 292.4375 lb Height 68 in Body Mass Index Calculated 44.46 kg/m2 Body Surface Area Calculated 2.4 m2 :17 Temperature 96.7 f Pulse 68 /min Comments: Pattern: Regular Respiration Rate 18 /min Comments: Pattern: Unlabored BP Systolic 124 mm[Hg] Comments: Patient Position: Sitting; Cuff Location: Left Arm; Cuff Size: Large BP Diastolic 70 mm[Hg] Comments: Patient Position: Sitting; Cuff Location: Left Arm; Cuff Size: Large Weight 288 lb Height 68 in Body Mass Index Calculated 43.79 kg/m2 Body Surface Area Calculated 2.39 m2 :33 Temperature 97.3 f Pulse 56 /min Comments: Pattern: Regular Respiration Rate 18 /min Comments: Pattern: Unlabored BP Systolic 126 mm[Hg] Comments: Patient Position: Sitting; Cuff Location: Left Arm; Cuff Size: Large BP Diastolic 68 mm[Hg] Comments: Patient Position: Sitting; Cuff Location: Left Arm; Cuff Size: Large Weight 273 lb Height 68 in Body Mass Index Calculated 41.51 kg/m2 Body Surface Area Calculated 2.33 m2 :33 Temperature 97 f Pulse 80 /min Comments: Pattern: Regular Respiration Rate 16 /min Comments: Pattern: Unlabored BP Systolic 100 mm[Hg] Comments: Patient Position: Sitting; Cuff Location: Left Arm; Cuff Size: Large BP Diastolic 54 mm[Hg] Comments: Patient Position: Sitting; Cuff Location: Left Arm; Cuff Size: Large Weight 280 lb Height 67.5 in Body Mass Index Calculated 43.21 kg/m2 Body Surface Area Calculated 2.35 m2 :58 Pulse 76 /min Comments: Pattern: Regular Respiration Rate 18 /min Comments: Pattern: Unlabored BP Systolic 110 mm[Hg] Comments: Patient Position: Sitting; Cuff Location: Left Arm; Cuff Size: Large BP Diastolic 58 mm[Hg] Comments: Patient Position: Sitting; Cuff Location: Left Arm; Cuff Size: Large :05 Temperature 98 f Pulse 64 /min Comments: Pattern: Regular Respiration Rate 18 /min Comments: Pattern: Unlabored BP Systolic 114 mm[Hg] Comments: Patient Position: Sitting; Cuff Location: Left Arm; Cuff Size: Large BP Diastolic 62 mm[Hg] Comments: Patient Position: Sitting; Cuff Location: Left Arm; Cuff Size: Large Weight 300 lb :30 Temperature 97.5 f Pulse 64 /min Comments: Pattern: Regular Respiration Rate 18 /min Comments: Pattern: Unlabored BP Systolic 128 mm[Hg] Comments: Patient Position: Sitting; Cuff Location: Right Arm; Cuff Size: Standard BP Diastolic 68 mm[Hg] Comments: Patient Position: Sitting; Cuff Location: Right Arm; Cuff Size: Standard Weight 296 lb :09 Temperature 97.8 f Pulse 72 /min Comments: Pattern: Regular Respiration Rate 18 /min Comments: Pattern: Unlabored BP Systolic 126 mm[Hg] Comments: Patient Position: Sitting; Cuff Location: Left Arm; Cuff Size: Standard BP Diastolic 64 mm[Hg] Comments: Patient Position: Sitting; Cuff Location: Left Arm; Cuff Size: Standard Weight 292 lb :35 Pulse 64 /min Comments: Pattern: Regular Respiration Rate 18 /min Comments: Pattern: Unlabored BP Systolic 130 mm[Hg] Comments: Patient Position: Sitting; Cuff Location: Left Arm; Cuff Size: Standard BP Diastolic 54 mm[Hg] Comments: Patient Position: Sitting; Cuff Location: Left Arm; Cuff Size: Standard Weight 298 lb :37 BP Systolic 142 mm[Hg] Comments: Patient Position: Sitting; Cuff Location: Left Arm; Cuff Size: Large BP Diastolic 70 mm[Hg] Comments: Patient Position: Sitting; Cuff Location: Left Arm; Cuff Size: Large Weight 0 lb Height 0 in Head Circumference 0.00 cm :44 BP Systolic 144 mm[Hg] Comments: Patient Position: Sitting; Cuff Location: Undefined; Cuff Size: Undefined BP Diastolic 65 mm[Hg] Comments: Patient Position: Sitting; Cuff Location: Undefined; Cuff Size: Undefined Weight 0 lb Height 0 in Head Circumference 0.00 cm :02 Temperature 97 f Comments: Method: Oral Pulse 60 /min Comments: Pattern: Regular Respiration Rate 18 /min Comments: Pattern: Unlabored BP Systolic 160 mm[Hg] Comments: Patient Position: Undefined; Cuff Location: Undefined; Cuff Size: Undefined BP Diastolic 78 mm[Hg] Comments: Patient Position: Undefined; Cuff Location: Undefined; Cuff Size: Undefined Weight 300.5 lb Height 70 in Body Mass Index Calculated 43.12 kg/m2 Body Surface Area Calculated 2.48 m2 Head Circumference 0.00 cm :48 Temperature 97 f Comments: Method: Undefined Pulse 64 /min Comments: Pattern: Regular Respiration Rate 18 /min Comments: Pattern: Undefined BP Systolic 124 mm[Hg] Comments: Patient Position: Sitting; Cuff Location: Right Arm; Cuff Size: Standard BP Diastolic 58 mm[Hg] Comments: Patient Position: Sitting; Cuff Location: Right Arm; Cuff Size: Standard Weight 0 lb Height 0 in Head Circumference 0.00 cm :22 BP Systolic 118 mm[Hg] Comments: Patient Position: Sitting; Cuff Location: Undefined; Cuff Size: Undefined BP Diastolic 68 mm[Hg] Comments: Patient Position: Sitting; Cuff Location: Undefined; Cuff Size: Undefined Weight 0 lb Height 0 in Head Circumference 0.00 cm :40 Temperature 97.7 f Comments: Method: Oral Pulse 60 /min Comments: Pattern: Regular Respiration Rate 20 /min Comments: Pattern: Unlabored O2 SAT 97 % Comments: Room air BP Systolic 134 mm[Hg] Comments: Patient Position: Sitting; Cuff Location: Left Arm; Cuff Size: Standard BP Diastolic 72 mm[Hg] Comments: Patient Position: Sitting; Cuff Location: Left Arm; Cuff Size: Standard Weight 286 lb Height 0 in Head Circumference 0.00 cm :33 Temperature 96.9 f Comments: Method: Undefined Pulse 56 /min Comments: Pattern: Regular Respiration Rate 18 /min Comments: Pattern: Undefined BP Systolic 146 mm[Hg] Comments: Patient Position: Sitting; Cuff Location: Left Arm; Cuff Size: Large BP Diastolic 72 mm[Hg] Comments: Patient Position: Sitting; Cuff Location: Left Arm; Cuff Size: Large Weight 0 lb Height 0 in Head Circumference 0.00 cm :41 Temperature 98.1 f Comments: Method: Oral Pulse 72 /min Comments: Pattern: Regular Respiration Rate 20 /min Comments: Pattern: Unlabored BP Systolic 130 mm[Hg] Comments: Patient Position: Sitting; Cuff Location: Left Arm; Cuff Size: Large BP Diastolic 68 mm[Hg] Comments: Patient Position: Sitting; Cuff Location: Left Arm; Cuff Size: Large Weight 290 lb Height 0 in Head Circumference 0.00 cm :38 Temperature 99 f Comments: Method: Oral Pulse 67 /min Comments: Pattern: Regular Respiration Rate 18 /min Comments: Pattern: Unlabored O2 SAT 98 % Comments: Room air BP Systolic 122 mm[Hg] Comments: Patient Position: Sitting; Cuff Location: Left Arm; Cuff Size: Standard BP Diastolic 78 mm[Hg] Comments: Patient Position: Sitting; Cuff Location: Left Arm; Cuff Size: Standard Weight 282.125 lb Height 0 in Head Circumference 0.00 cm :59 Temperature 98.3 f Comments: Method: Undefined Pulse 60 /min Comments: Pattern: Regular Respiration Rate 18 /min Comments: Pattern: Undefined BP Systolic 112 mm[Hg] Comments: Patient Position: Sitting; Cuff Location: Left Arm; Cuff Size: Large BP Diastolic 56 mm[Hg] Comments: Patient Position: Sitting; Cuff Location: Left Arm; Cuff Size: Large Weight 275 lb Height 0 in Head Circumference 0.00 cm :06 Temperature 98.4 f Comments: Method: Undefined Pulse 76 /min Comments: Pattern: Regular Respiration Rate 18 /min Comments: Pattern: Undefined O2 SAT 95 % Comments: Room air BP Systolic 174 mm[Hg] Comments: Patient Position: Sitting; Cuff Location: Right Arm; Cuff Size: Standard BP Diastolic 82 mm[Hg] Comments: Patient Position: Sitting; Cuff Location: Right Arm; Cuff Size: Standard Weight 283 lb Height 0 in Head Circumference 0.00 cm :32 Temperature 97.6 f Comments: Method: Oral Pulse 64 /min Comments: Pattern: Regular Respiration Rate 18 /min Comments: Pattern: Unlabored BP Systolic 132 mm[Hg] Comments: Patient Position: Sitting; Cuff Location: Left Arm; Cuff Size: Large BP Diastolic 68 mm[Hg] Comments: Patient Position: Sitting; Cuff Location: Left Arm; Cuff Size: Large Weight 0 lb Height 0 in Head Circumference 0.00 cm :24 Temperature 97.4 f Comments: Method: Oral Pulse 58 /min Comments: Pattern: Regular Respiration Rate 16 /min Comments: Pattern: Unlabored BP Systolic 110 mm[Hg] Comments: Patient Position: Sitting; Cuff Location: Right Arm; Cuff Size: Standard BP Diastolic 60 mm[Hg] Comments: Patient Position: Sitting; Cuff Location: Right Arm; Cuff Size: Standard Weight 254 lb Height 69.25 in Body Mass Index Calculated 37.24 kg/m2 Body Surface Area Calculated 2.29 m2 Head Circumference 0.00 cm :13 Temperature 98.3 f Comments: Method: Oral Pulse 72 /min Comments: Pattern: Regular Respiration Rate 16 /min Comments: Pattern: Unlabored BP Systolic 130 mm[Hg] Comments: Patient Position: Sitting; Cuff Location: Right Arm; Cuff Size: Large BP Diastolic 66 mm[Hg] Comments: Patient Position: Sitting; Cuff Location: Right Arm; Cuff Size: Large Weight 262 lb Height 69.25 in Body Mass Index Calculated 38.41 kg/m2 Body Surface Area Calculated 2.32 m2 Head Circumference 0.00 cm :06 Pulse 60 /min Comments: Pattern: Regular Respiration Rate 16 /min Comments: Pattern: Unlabored BP Systolic 118 mm[Hg] Comments: Patient Position: Sitting; Cuff Location: Left Arm; Cuff Size: Standard BP Diastolic 64 mm[Hg] Comments: Patient Position: Sitting; Cuff Location: Left Arm; Cuff Size: Standard Weight 0 lb Height 0 in Head Circumference 0.00 cm :59 Temperature 99 f Comments: Method: Oral Pulse 68 /min Comments: Pattern: Regular Respiration Rate 16 /min Comments: Pattern: Unlabored BP Systolic 122 mm[Hg] Comments: Patient Position: Sitting; Cuff Location: Right Arm; Cuff Size: Standard BP Diastolic 58 mm[Hg] Comments: Patient Position: Sitting; Cuff Location: Right Arm; Cuff Size: Standard Weight 252 lb Height 0 in Head Circumference 0.00 cm :51 Pulse 60 /min Comments: Pattern: Regular Respiration Rate 16 /min Comments: Pattern: Unlabored BP Systolic 110 mm[Hg] Comments: Patient Position: Sitting; Cuff Location: Left Arm; Cuff Size: Standard BP Diastolic 58 mm[Hg] Comments: Patient Position: Sitting; Cuff Location: Left Arm; Cuff Size: Standard Weight 0 lb Height 0 in Head Circumference 0.00 cm :07 Temperature 97.7 f Comments: Method: Oral Pulse 64 /min Comments: Pattern: Regular Respiration Rate 16 /min Comments: Pattern: Unlabored BP Systolic 130 mm[Hg] Comments: Patient Position: Sitting; Cuff Location: Left Arm; Cuff Size: Standard BP Diastolic 70 mm[Hg] Comments: Patient Position: Sitting; Cuff Location: Left Arm; Cuff Size: Standard Weight 0 lb Height 0 in Head Circumference 0.00 cm :50 Temperature 98.4 f Comments: Method: Undefined Pulse 74 /min Comments: Pattern: Regular Respiration Rate 16 /min Comments: Pattern: Undefined BP Systolic 118 mm[Hg] Comments: Patient Position: Sitting; Cuff Location: Right Arm; Cuff Size: Large BP Diastolic 64 mm[Hg] Comments: Patient Position: Sitting; Cuff Location: Right Arm; Cuff Size: Large Weight 0 lb Height 0 in Head Circumference 0.00 cm :11 Temperature 98.4 f Comments: Method: Undefined Pulse 72 /min Comments: Pattern: Regular Respiration Rate 16 /min Comments: Pattern: Undefined BP Systolic 140 mm[Hg] Comments: Patient Position: Sitting; Cuff Location: Right Arm; Cuff Size: Large BP Diastolic 78 mm[Hg] Comments: Patient Position: Sitting; Cuff Location: Right Arm; Cuff Size: Large Weight 0 lb Height 0 in Head Circumference 0.00 cm :42 Temperature 97.5 f Comments: Method: Oral Pulse 64 /min Comments: Pattern: Regular Respiration Rate 20 /min Comments: Pattern: Unlabored BP Systolic 136 mm[Hg] Comments: Patient Position: Sitting; Cuff Location: Right Arm; Cuff Size: Large BP Diastolic 68 mm[Hg] Comments: Patient Position: Sitting; Cuff Location: Right Arm; Cuff Size: Large Weight 256.125 lb Height 69.25 in Body Mass Index Calculated 37.55 kg/m2 Body Surface Area Calculated 2.3 m2 Head Circumference 0.00 cm :21 Temperature 97.8 f Comments: Method: Oral Pulse 64 /min Comments: Pattern: Regular Respiration Rate 16 /min Comments: Pattern: Unlabored BP Systolic 116 mm[Hg] Comments: Patient Position: Sitting; Cuff Location: Right Arm; Cuff Size: Large BP Diastolic 50 mm[Hg] Comments: Patient Position: Sitting; Cuff Location: Right Arm; Cuff Size: Large Weight 0 lb Height 0 in Head Circumference 0.00 cm Results Date Description Value Details [id number] METABOLIC PANEL, COMPREHENSIVE Comments: PATIENT NOT FASTINGPERFORMED BY: [facility] [id number] [facility] [id number] ([id number]) ALT (SGPT) 14 [iU]/L (Normal) Range: 0-44 AST (SGOT) 21 [iU]/L (Normal) Range: 0-40 Alkaline Phosphatase 74 [iU]/L (Normal) Range: 39-117 Bilirubin, Total 0.5 mg/dL (Normal) Range: 0.0-1.2 A/G Ratio 1.4 (Normal) Range: 1.2-2.2 Globulin, Total 2.5 g/dL (Normal) Range: 1.5-4.5 Albumin 3.6 g/dL (Normal) Range: 3.5-4.8 Protein, Total 6.1 g/dL (Normal) Range: 6.0-8.5 Calcium 9.0 mg/dL (Normal) Range: 8.6-10.2 Carbon Dioxide, Total 23 mmol/L (Normal) Range: 20-29 Chloride 102 mmol/L (Normal) Range: 96-106 Potassium 3.9 mmol/L (Normal) Range: 3.5-5.2 Sodium 142 mmol/L (Normal) Range: 134-144 BUN/Creatinine Ratio 11 (Normal) Range: 10-24 eGFR If Africn Am 96 mL/min/1.73 (Normal) eGFR If NonAfricn Am 83 mL/min/1.73 (Normal) Creatinine 0.92 mg/dL (Normal) Range: 0.76-1.27 BUN 10 mg/dL (Normal) Range: 8-27 Glucose 168 mg/dL (Abnormal) Range: 65-99 [id number] CBC with auto diff ([id number]) Comments: PATIENT NOT FASTINGPERFORMED BY: [facility] [id number] [facility] [id number] Immature Grans (Abs) 0.0 {x10E3/uL} (Normal) Range: 0.0-0.1 Immature Granulocytes 0 % (Normal) Baso (Absolute) 0.1 {x10E3/uL} (Normal) Range: 0.0-0.2 Eos (Absolute) 0.3 {x10E3/uL} (Normal) Range: 0.0-0.4 Monocytes(Absolute) 0.6 {x10E3/uL} (Normal) Range: 0.1-0.9 Lymphs (Absolute) 1.1 {x10E3/uL} (Normal) Range: 0.7-3.1 Neutrophils (Absolute) 9.1 {x10E3/uL} (Abnormal) Range: 1.4-7.0 Basos 0 % (Normal) Eos 3 % (Normal) Monocytes 6 % (Normal) Lymphs 10 % (Normal) Neutrophils 81 % (Normal) Platelets 260 {x10E3/uL} (Normal) Range: 150-379 RDW 17.9 % (Abnormal) Range: 12.3-15.4 MCHC 31.8 g/dL (Normal) Range: 31.5-35.7 MCH 25.8 pg (Abnormal) Range: 26.6-33.0 MCV 81 fL (Normal) Range: 79-97 Hematocrit 32.1 % (Abnormal) Range: 37.5-51.0 Hemoglobin 10.2 g/dL (Abnormal) Range: 13.0-17.7 RBC 3.95 {x10E6/uL} (Abnormal) Range: 4.14-5.80 WBC 11.2 {x10E3/uL} (Abnormal) Range: 3.4-10.8 [id number] Basic Metabolic Profile (BMP) Comments: [facility] [id number] [place], [place], [id number] GAP 7 (Normal) Range: 5-15 CO2 29.0 mmol/L (Normal) Range: 21.0-32.0 CL 104 mmol/L (Normal) Range: 98-107 K 3.6 mmol/L (Normal) Range: 3.5-5.1 NA 140 mmol/L (Normal) Range: 136-145 CA 8.1 mg/dL (Abnormal) Range: 8.5-10.1 BUN/CRE 11.4 {RATIO} (Normal) Range: 10-20 Estimated CRCL 71.82 ml/min (Normal) EST GFR - AA 98 mL/min (Normal) Comments: GFR Calc EST GFR 81 mL/min (Normal) Comments: Non- GFR Calc CREAT,SERUM 0.96 mg/dL (Normal) Range: 0.70-1.30 Comments: The validity of the calculated GFR AND GFRAA in patients over70 years has not been determined. Clinical correlation isessential. BUN 11 mg/dL (Normal) Range: 7-18 GLU 134 mg/dL (Abnormal) Range: 74-106 Comments: Fasting Glucose result greater than or equal to 126 mg/dLsuggests DIABETES MELLITUS per A.D.A. criteria.Please note revised GLUCOSE reference range bsfstsopn91/02/2018. [id number] CBC W/Diff, Automated Comments: [facility] [id number] [place], [place], [id number] Absolute Lymph 0.66 {X10_3/ul} (Abnormal) Range: 0.83-4.51 Absolute Neut 8.4 {X10_3/uL} (Abnormal) Range: 2.0-7.7 IM GRAN % 0.100 % (Normal) Range: 0.0-0.9 Comments: IG% - Immature Granulocytes (promyelocytes, myelocytes andmetamyelocytes) > 1% indicates that a LEFT SHIFT is Present. BASO% 0.2 % (Normal) Range: 0-1 EO% 0.7 % (Normal) Range: 0-5 MONO% 8.6 % (Normal) Range: 0-10 LY% 6.6 % (Abnormal) Range: 19-41 NEUT% 83.8 % (Abnormal) Range: 47-70 MPV 9.3 fL (Normal) Range: 6.2-12.0 PLT 204 K/mm3 (Normal) Range: 150-450 RDW SD 54.1 fL (Abnormal) Range: 35.1-43.9 RDW CV 17.7 % (Abnormal) Range: 11.6-14.6 MCHC 30.3 {g/gl} (Abnormal) Range: 32-36 MCH 25.2 pg (Abnormal) Range: 27.0-32.0 MCV 83.3 fL (Normal) Range: 80-94 HCT 34.0 % (Abnormal) Range: 40-54 HGB 10.3 g/dL (Abnormal) Range: 13.0-16.5 RBC 4.08 {M/mm3} (Abnormal) Range: 4.6-6.2 WBC 10.0 K/mm3 (Normal) Range: 4.4-11.0 [id number] CBC W/Diff, Automated Comments: Reason for Laboratory Test .[facility] [id number] [facility]. [place], [place], [id number] Absolute Lymph 1.18 {X10_3/ul} (Normal) Range: 0.83-4.51 Absolute Neut 9.6 {X10_3/uL} (Abnormal) Range: 2.0-7.7 IM GRAN % 0.200 % (Normal) Range: 0.0-0.9 Comments: IG% - Immature Granulocytes (promyelocytes, myelocytes andmetamyelocytes) > 1% indicates that a LEFT SHIFT is Present. BASO% 0.3 % (Normal) Range: 0-1 EO% 1.3 % (Normal) Range: 0-5 MONO% 5.2 % (Normal) Range: 0-10 LY% 10.2 % (Abnormal) Range: 19-41 NEUT% 82.8 % (Abnormal) Range: 47-70 MPV 9.8 fL (Normal) Range: 6.2-12.0 PLT 247 K/mm3 (Normal) Range: 150-450 RDW SD 57.1 fL (Abnormal) Range: 35.1-43.9 RDW CV 18.3 % (Abnormal) Range: 11.6-14.6 MCHC 30.2 {g/gl} (Abnormal) Range: 32-36 MCH 25.9 pg (Abnormal) Range: 27.0-32.0 MCV 85.7 fL (Normal) Range: 80-94 HCT 36.7 % (Abnormal) Range: 40-54 HGB 11.1 g/dL (Abnormal) Range: 13.0-16.5 RBC 4.28 {M/mm3} (Abnormal) Range: 4.6-6.2 WBC 11.6 K/mm3 (Abnormal) Range: 4.4-11.0 [id number] Comprehensive Metabolic Profil Comments: Reason for Laboratory Test .[facility] [id number] [place], [address] GAP 8 (Normal) Range: 5-15 CO2 27.0 mmol/L (Normal) Range: 21.0-32.0 CL 105 mmol/L (Normal) Range: 98-107 K 3.8 mmol/L (Normal) Range: 3.5-5.1 NA 140 mmol/L (Normal) Range: 136-145 T BILI 0.70 mg/dL (Normal) Range: 0.20-1.00 ALT 18 U/L (Normal) Range: 16-61 ALK P 91 U/L (Normal) Range: 45-117 AST 22 U/L (Normal) Range: 15-37 CA 8.3 mg/dL (Abnormal) Range: 8.5-10.1 A/G 0.9 {RATIO} (Normal) Range: 0.9-2.4 GLOB 3.8 g/dL (Normal) Range: 2.2-4.2 ALB 3.3 g/dL (Normal) Range: 3.2-5.0 T PROT 7.1 g/dL (Normal) Range: 6.4-8.2 BUN/CRE 7.8 {RATIO} (Abnormal) Range: 10-20 Estimated CRCL 59.95 ml/min (Normal) EST GFR - AA 80 mL/min (Normal) Comments: GFR Calc EST GFR 66 mL/min (Normal) Comments: Non- GFR Calc CREAT,SERUM 1.15 mg/dL (Normal) Range: 0.70-1.30 Comments: The validity of the calculated GFR AND GFRAA in patients over70 years has not been determined. Clinical correlation isessential. BUN 9 mg/dL (Normal) Range: 7-18 GLU 183 mg/dL (Abnormal) Range: 74-106 Comments: Fasting Glucose result greater than or equal to 126 mg/dLsuggests DIABETES MELLITUS per A.D.A. criteria.Please note revised GLUCOSE reference range bjjwllguc83/02/2018. [id number] Ferritin Comments: Reason for Laboratory Test .[facility] [id number] [place], [address] FERRITIN 19 ng/mL (Abnormal) Range: 26-388 [id number] Iron+Iron Binding Capacity Comments: Reason for Laboratory Test .[facility] [id number] [place], [place], [phone] IRON SATURATION 6.9 % (Abnormal) Range: 15.0-55.0 IRON 34 ug/dL (Abnormal) Range: 65-175 TIBC 494 ug/dL (Abnormal) Range: 250-450 [id number] Basic Metabolic Profile (BMP) Comments: [facility] [id number] [place], [address] GAP 7 (Normal) Range: 5-15 CO2 31.0 mmol/L (Normal) Range: 21.0-32.0 CL 103 mmol/L (Normal) Range: 98-107 K 3.6 mmol/L (Normal) Range: 3.5-5.1 NA 141 mmol/L (Normal) Range: 136-145 CA 8.7 mg/dL (Normal) Range: 8.5-10.1 BUN/CRE 10.1 {RATIO} (Normal) Range: 10-20 EST GFR - AA 85 mL/min (Normal) Comments: GFR Calc EST GFR 71 mL/min (Normal) Comments: Non- GFR Calc CREAT,SERUM 1.09 mg/dL (Normal) Range: 0.70-1.30 Comments: The validity of the calculated GFR AND GFRAA in patients over70 years has not been determined. Clinical correlation isessential. BUN 11 mg/dL (Normal) Range: 7-18 GLU 82 mg/dL (Normal) Range: 74-106 Comments: Please note revised GLUCOSE reference range vesdlsjhz07/02/2018. [id number] Digoxin Level Comments: [facility] [id number] [place], [address] DIG 1.25 ng/mL (Normal) Range: 0.80-2.00 [id number] Magnesium Comments: [facility] [id number] [place], [address] MG 2.1 mg/dL (Normal) Range: 1.6-2.6 :55 CBC W/Diff, Automated Comments: Reason for Laboratory Test .[facility] [id number] [place], [phone] Absolute Lymph 1.17 {X10_3/ul} (Normal) Range: 0.83-4.51 Absolute Neut 7.1 {X10_3/uL} (Normal) Range: 2.0-7.7 IM GRAN % 0.100 % (Normal) Range: 0.0-0.9 Comments: IG% - Immature Granulocytes (promyelocytes, myelocytes andmetamyelocytes) > 1% indicates that a LEFT SHIFT is Present. BASO% 0.3 % (Normal) Range: 0-1 EO% 1.6 % (Normal) Range: 0-5 MONO% 9.7 % (Normal) Range: 0-10 LY% 12.6 % (Abnormal) Range: 19-41 NEUT% 75.7 % (Abnormal) Range: 47-70 MPV 9.8 fL (Normal) Range: 6.2-12.0 PLT 259 K/mm3 (Normal) Range: 150-450 RDW SD 51.8 fL (Abnormal) Range: 35.1-43.9 RDW CV 16.1 % (Abnormal) Range: 11.6-14.6 MCHC 30.5 {g/gl} (Abnormal) Range: 32-36 MCH 26.7 pg (Abnormal) Range: 27.0-32.0 MCV 87.4 fL (Normal) Range: 80-94 HCT 34.1 % (Abnormal) Range: 40-54 HGB 10.4 g/dL (Abnormal) Range: 13.0-16.5 RBC 3.90 {M/mm3} (Abnormal) Range: 4.6-6.2 WBC 9.3 K/mm3 (Normal) Range: 4.4-11.0 [id number] Comprehensive Metabolic Profil Comments: Reason for Laboratory Test .[facility] [id number] [place], [address] GAP 7 (Normal) Range: 5-15 CO2 31.0 mmol/L (Normal) Range: 21.0-32.0 CL 105 mmol/L (Normal) Range: 98-107 K 3.9 mmol/L (Normal) Range: 3.5-5.1 NA 143 mmol/L (Normal) Range: 136-145 T BILI 0.40 mg/dL (Normal) Range: 0.20-1.00 ALT 15 U/L (Abnormal) Range: 16-61 ALK P 74 U/L (Normal) Range: 45-117 AST 19 U/L (Normal) Range: 15-37 CA 8.4 mg/dL (Abnormal) Range: 8.5-10.1 A/G 0.9 {RATIO} (Normal) Range: 0.9-2.4 GLOB 3.4 g/dL (Normal) Range: 2.2-4.2 ALB 3.0 g/dL (Abnormal) Range: 3.2-5.0 T PROT 6.4 g/dL (Normal) Range: 6.4-8.2 BUN/CRE 11.3 {RATIO} (Normal) Range: 10-20 EST GFR - AA 88 mL/min (Normal) Comments: GFR Calc EST GFR 73 mL/min (Normal) Comments: Non- GFR Calc CREAT,SERUM 1.06 mg/dL (Normal) Range: 0.70-1.30 Comments: The validity of the calculated GFR AND GFRAA in patients over70 years has not been determined. Clinical correlation isessential. BUN 12 mg/dL (Normal) Range: 7-18 GLU 135 mg/dL (Abnormal) Range: 74-106 Comments: Fasting Glucose result greater than or equal to 126 mg/dLsuggests DIABETES MELLITUS per A.D.A. criteria.Please note revised GLUCOSE reference range eggxoekgd67/02/2018. 83-Jse-133349:55 Ferritin Comments: Reason for Laboratory Test .[facility] [address] [place], [place], [id number] FERRITIN 28 ng/mL (Normal) Range: 26-388 16-Uvh-327323:55 Iron+Iron Binding Capacity Comments: Reason for Laboratory Test .[facility] [address] [place], [id number] IRON SATURATION 6.8 % (Abnormal) Range: 15.0-55.0 IRON 26 ug/dL (Abnormal) Range: 65-175 TIBC 381 ug/dL (Normal) Range: 250-450 52-Qmc-744689:32 URINALYSIS ([id number]) Comments: PATIENT NOT FASTINGPERFORMED BY: [employer] [facility] [id number] Information: SRC: Microscopic Examination MICNIP (Normal) Comments: Microscopic not indicated and not performed. Nitrite, Urine Negative (Normal) Urobilinogen,Semi-Qn 0.2 mg/dL (Normal) Range: 0.2-1.0 Bilirubin Negative (Normal) Occult Blood Negative (Normal) Ketones Negative (Normal) Glucose Negative (Normal) Protein Negative (Normal) WBC Esterase Negative (Normal) Appearance Clear (Normal) Urine-Color Yellow (Normal) pH 6.5 (Normal) Range: 5.0-7.5 Specific [place] 1.008 (Normal) Range: 1.005-1.030 31-Usf-175951:32 URINE VI CULTURE-IDENTIFICATN Comments: PATIENT NOT FASTINGPERFORMED BY: [employer] [facility] [id number] ([id number]) Result 1 NG36 (Normal) Comments: No growth in 36 - 48 hours. Urine Culture,Comprehensive Final report (Normal) 39-Tox-969577:16 CBC W/AUTO DIFF WBC ([id number]) Comments: PATIENT NOT FASTINGPERFORMED BY: [employer] Vhxcsh2484 [facility] [id number] Immature Grans (Abs) 0.0 {x10E3/uL} (Normal) Range: 0.0-0.1 Immature Granulocytes 0 % (Normal) Baso (Absolute) 0.0 {x10E3/uL} (Normal) Range: 0.0-0.2 Eos (Absolute) 0.3 {x10E3/uL} (Normal) Range: 0.0-0.4 Monocytes(Absolute) 0.6 {x10E3/uL} (Normal) Range: 0.1-0.9 Lymphs (Absolute) 0.9 {x10E3/uL} (Normal) Range: 0.7-3.1 Neutrophils (Absolute) 8.2 {x10E3/uL} (Abnormal) Range: 1.4-7.0 Basos 0 % (Normal) Eos 3 % (Normal) Monocytes 6 % (Normal) Lymphs 9 % (Normal) Neutrophils 82 % (Normal) Platelets 309 {x10E3/uL} (Normal) Range: 150-379 RDW 15.8 % (Abnormal) Range: 12.3-15.4 MCHC 30.8 g/dL (Abnormal) Range: 31.5-35.7 MCH 27.5 pg (Normal) Range: 26.6-33.0 MCV 89 fL (Normal) Range: 79-97 Hematocrit 34.4 % (Abnormal) Range: 37.5-51.0 Hemoglobin 10.6 g/dL (Abnormal) Range: 13.0-17.7 RBC 3.86 {x10E6/uL} (Abnormal) Range: 4.14-5.80 WBC 10.0 {x10E3/uL} (Normal) Range: 3.4-10.8 47-Qji-380198:16 METABOLIC PANEL, COMPREHENSIVE Comments: PATIENT NOT FASTINGPERFORMED BY: [employer] Chdkdp1414 [facility] [id number] ([id number]) ALT (SGPT) 12 [iU]/L (Normal) Range: 0-44 AST (SGOT) 17 [iU]/L (Normal) Range: 0-40 Alkaline Phosphatase 80 [iU]/L (Normal) Range: 39-117 Bilirubin, Total 0.5 mg/dL (Normal) Range: 0.0-1.2 A/G Ratio 1.5 (Normal) Range: 1.2-2.2 Globulin, Total 2.6 g/dL (Normal) Range: 1.5-4.5 Albumin 3.8 g/dL (Normal) Range: 3.5-4.8 Protein, Total 6.4 g/dL (Normal) Range: 6.0-8.5 Calcium 9.1 mg/dL (Normal) Range: 8.6-10.2 Carbon Dioxide, Total 25 mmol/L (Normal) Range: 20-29 Chloride 102 mmol/L (Normal) Range: 96-106 Potassium 3.7 mmol/L (Normal) Range: 3.5-5.2 Sodium 143 mmol/L (Normal) Range: 134-144 BUN/Creatinine Ratio 11 (Normal) Range: 10-24 eGFR If Africn Am 98 mL/min/1.73 (Normal) eGFR If NonAfricn Am 85 mL/min/1.73 (Normal) Creatinine 0.90 mg/dL (Normal) Range: 0.76-1.27 BUN 10 mg/dL (Normal) Range: 8-27 Glucose 112 mg/dL (Abnormal) Range: 65-99 7-Uub-032577:45 Basic Metabolic Profile (BMP) Comments: [facility] [address] [place], [address] GAP 9 (Normal) Range: 5-15 CO2 26.0 mmol/L (Normal) Range: 21.0-32.0 CL 103 mmol/L (Normal) Range: 98-107 K 3.4 mmol/L (Abnormal) Range: 3.5-5.1 NA 138 mmol/L (Normal) Range: 136-145 CA 8.1 mg/dL (Abnormal) Range: 8.5-10.1 BUN/CRE 9.3 {RATIO} (Abnormal) Range: 10-20 Estimated CRCL 62.40 ml/min (Normal) EST GFR - AA 87 mL/min (Normal) Comments: GFR Calc EST GFR 72 mL/min (Normal) Comments: Non- GFR Calc CREAT,SERUM 1.07 mg/dL (Normal) Range: 0.70-1.30 Comments: The validity of the calculated GFR AND GFRAA in patients over70 years has not been determined. Clinical correlation isessential. BUN 10 mg/dL (Normal) Range: 7-18 GLU 118 mg/dL (Abnormal) Range: 74-106 Comments: Fasting Glucose result from 100 to 125 mg/dLsuggests IMPAIRED HOMEOSTASIS per A.D.A. criteria.Please note revised GLUCOSE reference range taajqweej90/02/2018. 3-Arj-829155:45 CBC W/Diff, Automated Comments: [facility] [address] [place], [address] Absolute Lymph 0.88 {X10_3/ul} (Normal) Range: 0.83-4.51 Absolute Neut 14.7 {X10_3/uL} (Abnormal) Range: 2.0-7.7 IM GRAN % 0.200 % (Normal) Range: 0.0-0.9 Comments: IG% - Immature Granulocytes (promyelocytes, myelocytes andmetamyelocytes) > 1% indicates that a LEFT SHIFT is Present. BASO% 0.1 % (Normal) Range: 0-1 EO% 0.2 % (Normal) Range: 0-5 MONO% 6.8 % (Normal) Range: 0-10 LY% 5.2 % (Abnormal) Range: 19-41 NEUT% 87.5 % (Abnormal) Range: 47-70 MPV 10.2 fL (Normal) Range: 6.2-12.0 PLT 232 K/mm3 (Normal) Range: 150-450 RDW SD 50.4 fL (Abnormal) Range: 35.1-43.9 RDW CV 15.6 % (Abnormal) Range: 11.6-14.6 MCHC 32.4 {g/gl} (Normal) Range: 32-36 MCH 29.0 pg (Normal) Range: 27.0-32.0 MCV 89.6 fL (Normal) Range: 80-94 HCT 31.8 % (Abnormal) Range: 40-54 HGB 10.3 g/dL (Abnormal) Range: 13.0-16.5 RBC 3.55 {M/mm3} (Abnormal) Range: 4.6-6.2 WBC 16.8 K/mm3 (Abnormal) Range: 4.4-11.0 :45 Digoxin Level Comments: [facility] [address] [place], [id number] DIG 1.26 ng/mL (Normal) Range: 0.80-2.00 7-Vkw-094237:45 Lactic Acid Comments: Yes/No query for Sepsis Lactate Rule [facility] [address] [place], [address] LACTIC ACID 1.2 mmol/L (Normal) Range: 0.4-2.0 9-Wwd-511364:45 Troponin-I Comments: [facility] [address] [place], [address] TROPONIN-I 0.052 ng/mL (Abnormal) Comments: TROPONIN-I EXPECTED VALUES <0.045 Negative 0.045 - 0.590 Consistent with Cardiac Damage > OR = 0.600 Critical Value Not every elevated troponin is indicative of TX. T hesevalues should be used with clinical judgement in examiningthe patient's clinical picture for diagnosis. To establisha diagnosis of TX versus myocardial injury, there must be ademonstrated rise and/ or fall in the troponin values, inaddition to ischemic symptoms, EKG changes, new regionalwall motion abnormality, and/or angiographical evidence. PLEASE NOTE: REFERENCE RANGES EDITED 10/27/1721-Dec-20176-Wgo-749345:25 Urinalysis, Complete Comments: How was Urine Obtained? CLEAN [facility] [address] [place], [address] MUCUS, URINE 0 SEEN {/hpf} (Normal) BACTERIA 0 SEEN {/hpf} (Normal) SQUAM EPI 0-5 SEEN {/hpf} (Normal) Range: 0-5 RBC-UA 0 SEEN {/hpf} (Normal) Range: 0-5 WBC 0 SEEN {/hpf} (Normal) Range: 0-5 LEUK ESTERASE Negative /ul (Normal) OCCULT BLOOD-UR 10 /ul (Abnormal) NITRITE UR Negative (Normal) UROBILI 1 mg/dL (Abnormal) PROT DIPSTX 15 mg/dL (Abnormal) pH UR 6.5 (Normal) Range: 5.0 - 8.0 SP.GR. DIPSTX 1.010 (Normal) Range: 1.002-1.030 KETONE UR Negative mg/dL (Normal) BILIRUBIN URINE Negative mg/dL (Normal) GLUCOSE, UR Normal mg/dL (Normal) CLARITY Clear (Normal) COLOR Yellow (Normal) 89-Uoz-530267:12 VITAMIN B-12 (CYANOCOBALAMIN) Comments: PATIENT NOT FASTINGPERFORMED BY: [facility] Msplbo6206 [facility] [id number] ([id number]) Vitamin B12 807 pg/mL (Normal) Range: 232-1245 93-Bis-581245:12 CBC W/AUTO DIFF WBC ([id number]) Comments: PATIENT NOT FASTINGPERFORMED BY: [facility]6370 [facility] [id number] Immature Grans (Abs) 0.0 {x10E3/uL} (Normal) Range: 0.0-0.1 Immature Granulocytes 0 % (Normal) Baso (Absolute) 0.0 {x10E3/uL} (Normal) Range: 0.0-0.2 Eos (Absolute) 0.1 {x10E3/uL} (Normal) Range: 0.0-0.4 Monocytes(Absolute) 0.8 {x10E3/uL} (Normal) Range: 0.1-0.9 Lymphs (Absolute) 0.9 {x10E3/uL} (Normal) Range: 0.7-3.1 Neutrophils (Absolute) 7.3 {x10E3/uL} (Abnormal) Range: 1.4-7.0 Basos 0 % (Normal) Eos 1 % (Normal) Monocytes 8 % (Normal) Lymphs 10 % (Normal) Neutrophils 81 % (Normal) Platelets 262 {x10E3/uL} (Normal) Range: 150-379 RDW 15.9 % (Abnormal) Range: 12.3-15.4 MCHC 31.0 g/dL (Abnormal) Range: 31.5-35.7 MCH 28.5 pg (Normal) Range: 26.6-33.0 MCV 92 fL (Normal) Range: 79-97 Hematocrit 35.8 % (Abnormal) Range: 37.5-51.0 Hemoglobin 11.1 g/dL (Abnormal) Range: 13.0-17.7 RBC 3.90 {x10E6/uL} (Abnormal) Range: 4.14-5.80 WBC 9.1 {x10E3/uL} (Normal) Range: 3.4-10.8 78-Xmv-619410:12 METABOLIC PANEL, COMPREHENSIVE Comments: PATIENT NOT FASTINGPERFORMED BY: [facility]6370 [facility] [id number] ([id number]) ALT (SGPT) 11 [iU]/L (Normal) Range: 0-44 AST (SGOT) 17 [iU]/L (Normal) Range: 0-40 Alkaline Phosphatase 75 [iU]/L (Normal) Range: 39-117 Bilirubin, Total 0.6 mg/dL (Normal) Range: 0.0-1.2 A/G Ratio 1.6 (Normal) Range: 1.2-2.2 Globulin, Total 2.4 g/dL (Normal) Range: 1.5-4.5 Albumin 3.9 g/dL (Normal) Range: 3.5-4.8 Protein, Total 6.3 g/dL (Normal) Range: 6.0-8.5 Calcium 9.0 mg/dL (Normal) Range: 8.6-10.2 Carbon Dioxide, Total 25 mmol/L (Normal) Range: 20-29 Comments: Please note reference interval change Chloride 102 mmol/L (Normal) Range: 96-106 Potassium 4.0 mmol/L (Normal) Range: 3.5-5.2 Sodium 144 mmol/L (Normal) Range: 134-144 BUN/Creatinine Ratio 11 (Normal) Range: 10-24 eGFR If Africn Am 94 mL/min/1.73 (Normal) eGFR If NonAfricn Am 82 mL/min/1.73 (Normal) Creatinine 0.93 mg/dL (Normal) Range: 0.76-1.27 BUN 10 mg/dL (Normal) Range: 8-27 Glucose 101 mg/dL (Abnormal) Range: 65-99 9-Etm-706210:52 VITAMIN B-12 (CYANOCOBALAMIN) Comments: PATIENT NOT FASTINGPERFORMED BY: [facility] SupplyJer[facility] CenterTutsvn2446 [facility] [id number] ([id number]) Vitamin B12 1894 pg/mL (Abnormal) Range: 232-1245 2-Fpf-412726:52 METABOLIC PANEL, COMPREHENSIVE Comments: PATIENT NOT FASTINGPERFORMED BY: [employer] [facility]systemsSouth[facility]6370 [facility] [id number] ([id number]) ALT (SGPT) 10 [iU]/L (Normal) Range: 0-44 AST (SGOT) 23 [iU]/L (Normal) Range: 0-40 Alkaline Phosphatase 70 [iU]/L (Normal) Range: 39-117 Bilirubin, Total 0.7 mg/dL (Normal) Range: 0.0-1.2 A/G Ratio 1.7 (Normal) Range: 1.2-2.2 Globulin, Total 2.2 g/dL (Normal) Range: 1.5-4.5 Albumin 3.8 g/dL (Normal) Range: 3.5-4.8 Protein, Total 6.0 g/dL (Normal) Range: 6.0-8.5 Calcium 8.9 mg/dL (Normal) Range: 8.6-10.2 Carbon Dioxide, Total 27 mmol/L (Normal) Range: 18-29 Chloride 101 mmol/L (Normal) Range: 96-106 Potassium 4.2 mmol/L (Normal) Range: 3.5-5.2 Sodium 143 mmol/L (Normal) Range: 134-144 BUN/Creatinine Ratio 9 (Abnormal) Range: 10-24 eGFR If Africn Am 90 mL/min/1.73 (Normal) eGFR If NonAfricn Am 78 mL/min/1.73 (Normal) Creatinine 0.97 mg/dL (Normal) Range: 0.76-1.27 BUN 9 mg/dL (Normal) Range: 8-27 Glucose 94 mg/dL (Normal) Range: 65-99 6-Mim-301389:52 CBC W/AUTO DIFF WBC ([id number]) Comments: PATIENT NOT FASTINGPERFORMED BY: [facility] Qknhst3143 [facility] [id number] Immature Grans (Abs) 0.0 {x10E3/uL} (Normal) Range: 0.0-0.1 Immature Granulocytes 0 % (Normal) Baso (Absolute) 0.1 {x10E3/uL} (Normal) Range: 0.0-0.2 Eos (Absolute) 0.2 {x10E3/uL} (Normal) Range: 0.0-0.4 Monocytes(Absolute) 0.9 {x10E3/uL} (Normal) Range: 0.1-0.9 Lymphs (Absolute) 1.0 {x10E3/uL} (Normal) Range: 0.7-3.1 Neutrophils (Absolute) 7.8 {x10E3/uL} (Abnormal) Range: 1.4-7.0 Basos 1 % (Normal) Eos 2 % (Normal) Monocytes 9 % (Normal) Lymphs 10 % (Normal) Neutrophils 78 % (Normal) Platelets 298 {x10E3/uL} (Normal) Range: 150-379 RDW 20.1 % (Abnormal) Range: 12.3-15.4 MCHC 31.0 g/dL (Abnormal) Range: 31.5-35.7 MCH 29.8 pg (Normal) Range: 26.6-33.0 MCV 96 fL (Normal) Range: 79-97 Hematocrit 29.4 % (Abnormal) Range: 37.5-51.0 Hemoglobin 9.1 g/dL (Abnormal) Range: 13.0-17.7 RBC 3.05 {x10E6/uL} (Abnormal) Range: 4.14-5.80 WBC 10.1 {x10E3/uL} (Normal) Range: 3.4-10.8 5-Lnj-349993:32 Ferritin Comments: Reason for Laboratory Test .[facility] [address] [place], [place], [id number] FERRITIN 182 ng/mL (Normal) Range: 26-388 4-Oqa-873655:32 Iron+Iron Binding Capacity Comments: Reason for Laboratory Test .[facility] [address] [place], [place], [address] IRON SATURATION 19.7 % (Normal) Range: 15.0-55.0 IRON 71 ug/dL (Normal) Range: 65-175 TIBC 361 ug/dL (Normal) Range: 250-450 1-Mnx-568613:51 CBC W/Diff, Automated Comments: Reason for Laboratory Test .[facility] [address] [place], [place], [id number] ANISO 2+ (Normal) Absolute Lymph 0.92 {X10_3/ul} (Normal) Range: 0.83-4.51 Absolute Neut 8.4 {X10_3/uL} (Abnormal) Range: 2.0-7.7 IM GRAN % 0.900 % (Normal) Range: 0.0-0.9 Comments: IG% - Immature Granulocytes (promyelocytes, myelocytes andmetamyelocytes) > 1% indicates that a LEFT SHIFT is Present. BASO% 0.5 % (Normal) Range: 0-1 EO% 1.2 % (Normal) Range: 0-5 MONO% 12.8 % (Abnormal) Range: 0-10 LY% 8.4 % (Abnormal) Range: 19-41 NEUT% 76.2 % (Abnormal) Range: 47-70 MPV 9.6 fL (Normal) Range: 6.2-12.0 PLT 322 K/mm3 (Normal) Range: 150-450 RDW SD 74.5 fL (Abnormal) Range: 35.1-43.9 RDW CV 21.4 % (Abnormal) Range: 11.6-14.6 MCHC 30.2 {g/gl} (Abnormal) Range: 32-36 MCH 29.4 pg (Normal) Range: 27.0-32.0 MCV 97.1 fL (Abnormal) Range: 80-94 HCT 30.1 % (Abnormal) Range: 40-54 HGB 9.1 g/dL (Abnormal) Range: 13.0-16.5 RBC 3.10 {M/mm3} (Abnormal) Range: 4.6-6.2 WBC 11.0 K/mm3 (Normal) Range: 4.4-11.0 1-Swk-631002:51 Comprehensive Metabolic Profil Comments: Reason for Laboratory Test .[facility] [address] [place], [address] GAP 5 (Normal) Range: 5-15 CO2 32.0 mmol/L (Normal) Range: 21.0-32.0 CL 105 mmol/L (Normal) Range: 98-107 K 3.8 mmol/L (Normal) Range: 3.5-5.1 NA 142 mmol/L (Normal) Range: 136-145 T BILI 0.70 mg/dL (Normal) Range: 0.20-1.00 ALT 18 U/L (Normal) Range: 16-61 ALK P 89 U/L (Normal) Range: 45-117 AST 22 U/L (Normal) Range: 15-37 CA 8.9 mg/dL (Normal) Range: 8.5-10.1 A/G 1.0 {RATIO} (Normal) Range: 0.9-2.4 GLOB 3.2 g/dL (Normal) Range: 2.2-4.2 ALB 3.2 g/dL (Normal) Range: 3.2-5.0 T PROT 6.4 g/dL (Normal) Range: 6.4-8.2 BUN/CRE 10.0 {RATIO} (Normal) Range: 10-20 Estimated CRCL 68.94 ml/min (Normal) EST GFR - AA 94 mL/min (Normal) Comments: GFR Calc EST GFR 78 mL/min (Normal) Comments: Non- GFR Calc CREAT,SERUM 1.00 mg/dL (Normal) Range: 0.70-1.30 Comments: The validity of the calculated GFR AND GFRAA in patients over70 years has not been determined. Clinical correlation isessential. BUN 10 mg/dL (Normal) Range: 7-18 GLU 106 mg/dL (Normal) Range: 74-106 Comments: Fasting Glucose result from 100 to 125 mg/dLsuggests IMPAIRED HOMEOSTASIS per A.D.A. criteria.Please note revised GLUCOSE reference range ijdvpgwfr03/02/2018. 22-Vml-551888:01 CBC W/Diff, Automated Comments: [facility] [address] [place], [address] PATH REV Reviewed (Normal) Comments: Macrocytic anemia.Clinical correlation suggested.Kel Morales D.O. 10/08/17 AMENDED REPORT 10/08/17 0928 PATH REV previously reported as: May foll OVALOCYTE RARE (Normal) MACROCYTE RARE (Normal) HYPOCHROMASIA RARE (Normal) ANISO RARE (Normal) PLT EST ADEQUATE (Normal) TOXIC GRAN RARE (Normal) EOS 5 % (Normal) Range: 0-5 MONOCYTE 8 % (Normal) Range: 0-10 LYMPH 7 % (Abnormal) Range: 19-41 MYELO 4 (Abnormal) Range: 0-0 META 3 % (Abnormal) Range: 0-1 BAND 8 % (Abnormal) Range: 0-5 SEGS 65 % (Normal) Range: 47-70 CELLS COUNTED 100 (Normal) Absolute Lymph 0.74 {X10_3/ul} (Abnormal) Range: 0.83-4.51 Absolute Neut 7.7 {X10_3/uL} (Normal) Range: 2.0-7.7 MPV 10.4 fL (Normal) Range: 6.2-12.0 PLT 292 K/mm3 (Normal) Range: 150-450 RDW SD 69.7 fL (Abnormal) Range: 35.1-43.9 RDW CV 20.7 % (Abnormal) Range: 11.6-14.6 MCHC 30.6 {g/gl} (Abnormal) Range: 32-36 MCH 30.4 pg (Normal) Range: 27.0-32.0 MCV 99.3 fL (Abnormal) Range: 80-94 HCT 30.1 % (Abnormal) Range: 40-54 HGB 9.2 g/dL (Abnormal) Range: 13.0-16.5 RBC 3.03 {M/mm3} (Abnormal) Range: 4.6-6.2 WBC 10.6 K/mm3 (Normal) Range: 4.4-11.0 34-Lge-852535:01 Comprehensive Metabolic Profil Comments: [facility] [address] [place], [place], [address] GAP 5 (Normal) Range: 5-15 CO2 31.0 mmol/L (Normal) Range: 21.0-32.0 CL 105 mmol/L (Normal) Range: 98-107 K 4.0 mmol/L (Normal) Range: 3.5-5.1 NA 141 mmol/L (Normal) Range: 136-145 T BILI 0.60 mg/dL (Normal) Range: 0.20-1.00 ALT 22 U/L (Normal) Range: 16-61 ALK P 105 U/L (Normal) Range: 45-117 AST 24 U/L (Normal) Range: 15-37 CA 8.5 mg/dL (Normal) Range: 8.5-10.1 A/G 0.8 {RATIO} (Abnormal) Range: 0.9-2.4 GLOB 3.3 g/dL (Normal) Range: 2.2-4.2 ALB 2.8 g/dL (Abnormal) Range: 3.2-5.0 T PROT 6.1 g/dL (Abnormal) Range: 6.4-8.2 BUN/CRE 6.0 {RATIO} (Abnormal) Range: 10-20 EST GFR - AA 117 mL/min (Normal) Comments: GFR Calc EST GFR 97 mL/min (Normal) Comments: Non- GFR Calc CREAT,SERUM 0.83 mg/dL (Normal) Range: 0.70-1.30 Comments: The validity of the calculated GFR AND GFRAA in patients over70 years has not been determined. Clinical correlation isessential. BUN 5 mg/dL (Abnormal) Range: 7-18 GLU 93 mg/dL (Normal) Range: 74-106 Comments: Please note revised GLUCOSE reference range yfdjwntqm76/02/2018. 78-Ine-922412:01 Urinalysis, Routine (Dipstick) Comments: How was Urine Obtained? CLEAN [facility] [address] [place], [place], [id number] LEUK ESTERASE Negative /ul (Normal) OCCULT BLOOD-UR Negative /ul (Normal) NITRITE UR Negative (Normal) UROBILI 1 mg/dL (Abnormal) PROT DIPSTX Negative mg/dL (Normal) pH UR 8.0 (Normal) Range: 5.0 - 8.0 SP.GR. DIPSTX 1.010 (Normal) Range: 1.002-1.030 KETONE UR Negative mg/dL (Normal) BILIRUBIN URINE Negative mg/dL (Normal) GLUCOSE, UR Normal mg/dL (Normal) CLARITY Sl. Cloudy (Normal) COLOR Yellow (Normal) 68-Aij-178265:05 Basic Metabolic Profile (BMP) Comments: 'TROP' Serial specimen #1, #2, #3, or #4: [address] [place] [address] [address] [place], [place], [id number] GAP 6 (Normal) Range: 5-15 CO2 25.0 mmol/L (Normal) Range: 21.0-32.0 CL 108 mmol/L (Abnormal) Range: 98-107 K 4.5 mmol/L (Normal) Range: 3.5-5.1 NA 139 mmol/L (Normal) Range: 136-145 CA 8.0 mg/dL (Abnormal) Range: 8.5-10.1 BUN/CRE 12.6 {RATIO} (Normal) Range: 10-20 Estimated CRCL 79.25 ml/min (Normal) EST GFR - AA 110 mL/min (Normal) Comments: GFR Calc EST GFR 91 mL/min (Normal) Comments: Non- GFR Calc CREAT,SERUM 0.87 mg/dL (Normal) Range: 0.70-1.30 Comments: The validity of the calculated GFR AND GFRAA in patients over70 years has not been determined. Clinical correlation isessential. BUN 11 mg/dL (Normal) Range: 7-18 GLU 101 mg/dL (Normal) Range: 74-106 Comments: Fasting Glucose result from 100 to 125 mg/dLsuggests IMPAIRED HOMEOSTASIS per A.D.A. criteria.Please note revised GLUCOSE reference range szcyeieyb34/02/2018. 89-Cuf-992278:05 CBC W/Diff, Automated Comments: [facility] [address] [place], [address] PATH REV Reviewed (Normal) Comments: Severe Macrocytic anemia and Thrombocytopenia.Clinical correlation necessary.Silvio Garcias M.D. 09/30/17 AMENDED REPORT 09/30/17 1006 PATH REV previously reported as: May foll MACROCYTE 1+ (Normal) HYPOCHROMASIA 1+ (Normal) POLYCHROMASIA 1+ (Normal) ANISO 2+ (Normal) PLT EST MKD DEC (Normal) DOHLE BODIES RARE (Normal) TOXIC GRAN RARE (Normal) Absolute Lymph 0.68 {X10_3/ul} Range: 0.83-4.51 (Abnormal) Absolute Neut 3.2 {X10_3/uL} (Normal) Range: 2.0-7.7 IM GRAN % 0.700 % (Normal) Range: 0.0-0.9 Comments: IG% - Immature Granulocytes (promyelocytes, myelocytes andmetamyelocytes) > 1% indicates that a LEFT SHIFT is Present. BASO% 0.2 % (Normal) Range: 0-1 EO% 3.1 % (Normal) Range: 0-5 MONO% 11.3 % (Abnormal) Range: 0-10 LY% 14.8 % (Abnormal) Range: 19-41 NEUT% 69.9 % (Normal) Range: 47-70 MPV 10.4 fL (Normal) Range: 6.2-12.0 PLT 44 K/mm3 (Abnormal) Range: 150-450 Comments: RESULTS CALLED TO AloricaRTIN 09/29/17 1722 Akshat Almzaan.REPORT READ BACK BY SAME. RDW SD 76.8 fL (Abnormal) Range: 35.1-43.9 RDW CV 23.1 % (Abnormal) Range: 11.6-14.6 MCHC 31.3 {g/gl} (Abnormal) Range: 32-36 MCH 30.9 pg (Normal) Range: 27.0-32.0 MCV 98.8 fL (Abnormal) Range: 80-94 HCT 16.0 % (Abnormal) Range: 40-54 HGB 5.0 g/dL (Abnormal) Range: 13.0-16.5 Comments: RESULTS CALLED TO AloricaIN 09/29/17 1722 Akshat Almazan.REPORT READ BACK BY SAME. RBC 1.62 {M/mm3} (Abnormal) Range: 4.6-6.2 WBC 4.6 K/mm3 (Normal) Range: 4.4-11.0 20-Fhj-618721:05 Troponin-I Comments: 'TROP' Serial specimen #1, #2, #3, or #4: [address] [place] [address] [address] [place], [address] TROPONIN-I 0.12 ng/mL (Abnormal) Comments: TROPONIN-I EXPECTED VALUES <0.05 NEGATIVE 0.06 - 0.59 AT RISK OF [place] > OR = 0.60 SUGGEST [place] [id number] CBC W/Diff, Automated Comments: Reason for Laboratory Test ALSO DRAW AND HOLD FOR [facility] [id number] [place], [address] HYPOCHROMASIA 2+ (Normal) PLT MORPH LARGE (Normal) PLT EST MOD DEC (Normal) DOHLE BODIES 1+ (Normal) TOXIC GRAN 1+ (Normal) SMEAR COMMENT SCANNED (Normal) Comments: RARE BANDS SEEN Absolute Lymph 0.35 {X10_3/ul} (Abnormal) Range: 0.83-4.51 Absolute Neut 3.8 {X10_3/uL} (Normal) Range: 2.0-7.7 IM GRAN % 0.700 % (Normal) Range: 0.0-0.9 Comments: IG% - Immature Granulocytes (promyelocytes, myelocytes andmetamyelocytes) > 1% indicates that a LEFT SHIFT is Present. BASO% 0.2 % (Normal) Range: 0-1 EO% 1.2 % (Normal) Range: 0-5 MONO% 2.3 % (Normal) Range: 0-10 LY% 8.2 % (Abnormal) Range: 19-41 NEUT% 87.4 % (Abnormal) Range: 47-70 MPV 11.0 fL (Normal) Range: 6.2-12.0 PLT 72 K/mm3 (Abnormal) Range: 150-450 RDW SD 77.2 fL (Abnormal) Range: 35.1-43.9 RDW CV 21.6 % (Abnormal) Range: 11.6-14.6 MCHC 30.9 {g/gl} (Abnormal) Range: 32-36 MCH 30.4 pg (Normal) Range: 27.0-32.0 MCV 98.6 fL (Abnormal) Range: 80-94 HCT 28.5 % (Abnormal) Range: 40-54 HGB 8.8 g/dL (Abnormal) Range: 13.0-16.5 RBC 2.89 {M/mm3} (Abnormal) Range: 4.6-6.2 WBC 4.3 K/mm3 (Abnormal) Range: 4.4-11.0 [id number] CBC W/Diff, Automated Comments: [facility] [id number] [place], [place], [id number] MACROCYTE 1+ (Normal) HYPOCHROMASIA 1+ (Normal) ANISO 1+ (Normal) Absolute Lymph 0.74 {X10_3/ul} (Abnormal) Range: 0.83-4.51 Absolute Neut 12.6 {X10_3/uL} (Abnormal) Range: 2.0-7.7 IM GRAN % 0.500 % (Normal) Range: 0.0-0.9 Comments: IG% - Immature Granulocytes (promyelocytes, myelocytes andmetamyelocytes) > 1% indicates that a LEFT SHIFT is Present. BASO% 0.1 % (Normal) Range: 0-1 EO% 0.0 % (Normal) Range: 0-5 MONO% 4.3 % (Normal) Range: 0-10 LY% 5.3 % (Abnormal) Range: 19-41 NEUT% 89.8 % (Abnormal) Range: 47-70 MPV 9.7 fL (Normal) Range: 6.2-12.0 PLT 249 K/mm3 (Normal) Range: 150-450 RDW SD 81.1 fL (Abnormal) Range: 35.1-43.9 RDW CV 23.2 % (Abnormal) Range: 11.6-14.6 MCHC 30.6 {g/gl} (Abnormal) Range: 32-36 MCH 29.8 pg (Normal) Range: 27.0-32.0 MCV 97.6 fL (Abnormal) Range: 80-94 HCT 32.4 % (Abnormal) Range: 40-54 HGB 9.9 g/dL (Abnormal) Range: 13.0-16.5 RBC 3.32 {M/mm3} (Abnormal) Range: 4.6-6.2 WBC 14.0 K/mm3 (Abnormal) Range: 4.4-11.0 [id number] Comprehensive Metabolic Profil Comments: [facility] [id number] [place], [address] GAP 10 (Normal) Range: 5-15 CO2 26.0 mmol/L (Normal) Range: 21.0-32.0 CL 104 mmol/L (Normal) Range: 98-107 K 3.9 mmol/L (Normal) Range: 3.5-5.1 NA 140 mmol/L (Normal) Range: 136-145 T BILI 0.90 mg/dL (Normal) Range: 0.20-1.00 ALT 19 U/L (Normal) Range: 16-61 Comments: Please note revised ALT reference range [id number]/28/2018. ALK P 88 U/L (Normal) Range: 45-117 AST 17 U/L (Normal) Range: 15-37 CA 8.4 mg/dL (Abnormal) Range: 8.5-10.1 A/G 1.0 {RATIO} (Normal) Range: 0.9-2.4 GLOB 3.3 g/dL (Normal) Range: 2.2-4.2 ALB 3.3 g/dL (Normal) Range: 3.2-5.0 T PROT 6.6 g/dL (Normal) Range: 6.4-8.2 BUN/CRE 15.7 {RATIO} (Normal) Range: 10-20 Estimated CRCL 60.83 ml/min (Normal) EST GFR - AA 80 mL/min (Normal) Comments: GFR Calc EST GFR 66 mL/min (Normal) Comments: Non- GFR Calc CREAT,SERUM 1.15 mg/dL (Normal) Range: 0.70-1.30 Comments: The validity of the calculated GFR AND GFRAA in patients over70 years has not been determined. Clinical correlation isessential. BUN 18 mg/dL (Normal) Range: 7-18 GLU 132 mg/dL (Abnormal) Range: 74-106 Comments: Fasting Glucose result greater than or equal to 126 mg/dLsuggests DIABETES MELLITUS per A.D.A. criteria.Please note revised GLUCOSE reference range ogjwvylvu15/02/2018. [id number] RC Comments: Non-[facility] Laboratory - refer to report for specific site [id number] TRANSFUSED PRODUCT: T AND S with Crossmatch, Red Cells COUNT: 1 (Normal) [id number] Type AND Screen Comments: CMV NEG?* NGive When? TodayIrradiated? NLeukodepleted? YReason for Type AND Screen/Red Cells: [facility] [address]djb[address] [place], [place], [id number] Antibody Screen NEGATIVE (Normal) BLOOD TYPE GEL O POSITIVE (Normal) [id number]:02 CBC W/Diff, Automated Comments: [facility] [address]xstb4527 [facility]. [place], [place], [id number] PATH REV Reviewed (Normal) Comments: Neutrophilic leukocytosis with left shift.Macrocytic anemia.Clinical correlation necessary.Pathologist comment Jesica Garcias M.D. 09/12/17 AMENDED REPORT 09/12/17 1358 PATH REV previously reported as: May foll ANISO 1+ (Normal) RED CELL MORPH N CHROM {NORMAL} (Normal) PLT EST ADEQUATE (Normal) EOS 1 % (Normal) Range: 0-5 MONOCYTE 5 % (Normal) Range: 0-10 LYMPH 3 % (Abnormal) Range: 19-41 PROMYELO 2 (Abnormal) Range: 0-0 MYELO 2 (Abnormal) Range: 0-0 META 1 % (Normal) Range: 0-1 SEGS 86 % (Abnormal) Range: 47-70 CELLS COUNTED 100 (Normal) Absolute Lymph 0.46 {X10_3/ul} (Abnormal) Range: 0.83-4.51 Absolute Neut 13.1 {X10_3/uL} (Abnormal) Range: 2.0-7.7 MPV 9.6 fL (Normal) Range: 6.2-12.0 PLT 271 K/mm3 (Normal) Range: 150-450 RDW SD 81.5 fL (Abnormal) Range: 35.1-43.9 RDW CV 23.9 % (Abnormal) Range: 11.6-14.6 MCHC 30.8 {g/gl} (Abnormal) Range: 32-36 MCH 30.2 pg (Normal) Range: 27.0-32.0 MCV 98.0 fL (Abnormal) Range: 80-94 HCT 24.7 % (Abnormal) Range: 40-54 HGB 7.6 g/dL (Abnormal) Range: 13.0-16.5 RBC 2.52 {M/mm3} (Abnormal) Range: 4.6-6.2 WBC 15.2 K/mm3 (Abnormal) Range: 4.4-11.0 [id number]-Zin-[id number]:02 Comprehensive Metabolic Profil Comments: [facility] [address] [facility] [place], [address] GAP 11 (Normal) Range: 5-15 CO2 21.0 mmol/L (Normal) Range: 21.0-32.0 CL 107 mmol/L (Normal) Range: 98-107 K 4.1 mmol/L (Normal) Range: 3.5-5.1 NA 139 mmol/L (Normal) Range: 136-145 T BILI 1.10 mg/dL (Abnormal) Range: 0.20-1.00 ALT 20 U/L (Normal) Range: 16-61 Comments: Please note revised ALT reference range vylfanjqp89/28/2018. ALK P 102 U/L (Normal) Range: 45-117 AST 17 U/L (Normal) Range: 15-37 CA 8.1 mg/dL (Abnormal) Range: 8.5-10.1 A/G 0.9 {RATIO} (Normal) Range: 0.9-2.4 GLOB 3.4 g/dL (Normal) Range: 2.2-4.2 ALB 3.0 g/dL (Abnormal) Range: 3.2-5.0 T PROT 6.4 g/dL (Normal) Range: 6.4-8.2 BUN/CRE 13.0 {RATIO} (Normal) Range: 10-20 Estimated CRCL 60.83 ml/min (Normal) EST GFR - AA 80 mL/min (Normal) Comments: GFR Calc EST GFR 66 mL/min (Normal) Comments: Non- GFR Calc CREAT,SERUM 1.15 mg/dL (Normal) Range: 0.70-1.30 Comments: The validity of the calculated GFR AND GFRAA in patients over70 years has not been determined. Clinical correlation isessential. BUN 15 mg/dL (Normal) Range: 7-18 GLU 226 mg/dL (Abnormal) Range: 74-106 Comments: Glucose result greater than or equal to 200 mg/dLsuggests DIABETES MELLITUS per A.D.A. criteria.Please note revised GLUCOSE reference range ebpmadbqe13/02/2018. [id number]:30 CBC W/Diff, Automated Comments: Reason for Laboratory Test [facility] [id number] [facility]. [place], [place], [id number] PATH REV Reviewed (Normal) Comments: Neutrophilic leukocytosis with left shift.Macrocytic anemia. NBCs are noted.Mild Thrombocytopenia.Clinical correlation necessary.Silvio Garcias M.D. 09/08/17 AMENDED REPORT 09/08/17 1340 PATH REV previously reported as: May foll HYPOCHROMASIA 2+ (Normal) POLYCHROMASIA 1+ (Normal) ANISO 1+ (Normal) PLT EST SLT DEC (Normal) NRBC,MANUAL CT 1 % (Normal) Range: 0-5 EOS 1 % (Normal) Range: 0-5 MONOCYTE 6 % (Normal) Range: 0-10 LYMPH 6 % (Abnormal) Range: 19-41 PROMYELO 3 (Abnormal) Range: 0-0 MYELO 2 (Abnormal) Range: 0-0 META 6 % (Abnormal) Range: 0-1 BAND 2 % (Normal) Range: 0-5 SEGS 74 % (Abnormal) Range: 47-70 CELLS COUNTED 100 (Normal) Absolute Lymph 1.43 {X10_3/ul} (Normal) Range: 0.83-4.51 Absolute Neut 18.1 {X10_3/uL} Range: 2.0-7.7 (Abnormal) MPV 11.4 fL (Normal) Range: 6.2-12.0 PLT 120 K/mm3 (Abnormal) Range: 150-450 RDW SD 68.3 fL (Abnormal) Range: 35.1-43.9 RDW CV 23.0 % (Abnormal) Range: 11.6-14.6 MCHC 30.4 {g/gl} (Abnormal) Range: 32-36 MCH 30.0 pg (Normal) Range: 27.0-32.0 MCV 98.9 fL (Abnormal) Range: 80-94 HCT 28.0 % (Abnormal) Range: 40-54 HGB 8.5 g/dL (Abnormal) Range: 13.0-16.5 RBC 2.83 {M/mm3} (Abnormal) Range: 4.6-6.2 WBC 23.9 K/mm3 (Abnormal) Range: 4.4-11.0 [id number]-[id number]:15 Comments: Non-[facility] Laboratory - refer to report for specific site [id number] TRANSFUSED PRODUCT: T AND S with Crossmatch, Red Cells COUNT: 2 (Normal) [id number] Type AND Screen Comments: CMV NEG?* NGive When? TodayIrradiated? NLeukodepleted? YReason for Type AND Screen/Red Cells: [facility] [address] [place], [address] Antibody Screen NEGATIVE (Normal) BLOOD TYPE GEL O POSITIVE (Normal) [id number]-[id number]:15 Type AND Screen Comments: CMV NEG?* NGive When? TodayIrradiated? NLeukodepleted? YReason for Type AND Screen/Red Cells: [facility] [address] [place], [address] Antibody Screen NEGATIVE (Normal) BLOOD TYPE GEL O POSITIVE (Normal) [id number]:08 CBC W/Diff, Automated Comments: Reason for Laboratory Test .CRITICAL VALUE VERIFIED. CALLED TO [place]OR[place] JAMESON03/ Loc6 Amy Wan.RESULTS READ BACK BY SAME .[facility] [address] [place], [address] PATH REV Reviewed (Normal) Comments: Neutrophilic left shift.Severe normocytic anemia.NRBCs are noted.Thrombocytopenia.Clinical correlation necessary.Silvio Garcias M.D. 09/02/17 AMENDED REPORT 09/02/17 1358 PATH REV previously reported as: October MACROCYTE 1+ (Normal) HYPOCHROMASIA 3+ (Normal) POLYCHROMASIA 1+ (Normal) PLT EST MKD DEC (Normal) EOS 1 % (Normal) Range: 0-5 MONOCYTE 21 % (Abnormal) Range: 0-10 LYMPH 13 % (Abnormal) Range: 19-41 PROMYELO 4 (Abnormal) Range: 0-0 MYELO 3 (Abnormal) Range: 0-0 META 3 % (Abnormal) Range: 0-1 BAND 2 % (Normal) Range: 0-5 SEGS 53 % (Normal) Range: 47-70 CELLS COUNTED 100 (Normal) Absolute Lymph 0.84 {X10_3/ul} Range: 0.83-4.51 (Normal) Absolute Neut 3.6 {X10_3/uL} Range: 2.0-7.7 (Normal) MPV 10.3 fL (Normal) Range: 6.2-12.0 PLT 40 K/mm3 (Abnormal) Range: 150-450 RDW SD 70.5 fL (Abnormal) Range: 35.1-43.9 RDW CV 21.2 % (Abnormal) Range: 11.6-14.6 MCHC 30.7 {g/gl} (Abnormal) Range: 32-36 MCH 28.6 pg (Normal) Range: 27.0-32.0 MCV 93.2 fL (Normal) Range: 80-94 HCT 19.2 % (Abnormal) Range: 40-54 HGB 5.9 g/dL (Abnormal) Range: 13.0-16.5 RBC 2.06 {M/mm3} Range: 4.6-6.2 (Abnormal) WBC 6.5 K/mm3 (Normal) Range: 4.4-11.0 :01 Comments: [facility] - refer to report for specific site [id number] TRANSFUSED PRODUCT: T AND S with Crossmatch, Red Cells COUNT: 1 (Normal) [id number] Type AND Screen Comments: PRETRANSFUSION HGB = 7.3 HCT = 24.2 [facility] NEG?* NGive When? When ReadyIrradiated? NLeukodepleted? YReason for Type AND Screen/Red Cells: [facility] [address] [place], [place], [address] Antibody Screen NEGATIVE (Normal) BLOOD TYPE GEL O POSITIVE (Normal) [id number] CBC W/Diff, Automated Comments: Reason for Laboratory Test .[facility] [address] [place], [address] HYPOCHROMASIA 2+ (Normal) ANISO 2+ (Normal) PLT MORPH LARGE (Normal) PLT EST SLT DEC (Normal) Absolute Lymph 0.79 {X10_3/ul} (Abnormal) Range: 0.83-4.51 Absolute Neut 3.2 {X10_3/uL} (Normal) Range: 2.0-7.7 IM GRAN % 0.700 % (Normal) Range: 0.0-0.9 Comments: IG% - Immature Granulocytes (promyelocytes, myelocytes andmetamyelocytes) > 1% indicates that a LEFT SHIFT is Present. BASO% 0.5 % (Normal) Range: 0-1 EO% 0.2 % (Normal) Range: 0-5 MONO% 3.1 % (Normal) Range: 0-10 LY% 18.8 % (Abnormal) Range: 19-41 NEUT% 76.7 % (Abnormal) Range: 47-70 MPV 10.9 fL (Normal) Range: 6.2-12.0 PLT 104 K/mm3 (Abnormal) Range: 150-450 RDW SD 78.2 fL (Abnormal) Range: 35.1-43.9 RDW CV 22.6 % (Abnormal) Range: 11.6-14.6 MCHC 30.2 {g/gl} (Abnormal) Range: 32-36 MCH 28.9 pg (Normal) Range: 27.0-32.0 MCV 95.7 fL (Abnormal) Range: 80-94 HCT 24.2 % (Abnormal) Range: 40-54 HGB 7.3 g/dL (Abnormal) Range: 13.0-16.5 RBC 2.53 {M/mm3} (Abnormal) Range: 4.6-6.2 WBC 4.2 K/mm3 (Abnormal) Range: 4.4-11.0 :56 CBC W/Diff, Automated Comments: [facility] [address] [place], [address] PATH REV Reviewed (Normal) Comments: Macrocytic anemia.Neutrophilic leukocytosis with slight left shift.Kel Morales D.O. 08/21/17 AMENDED REPORT 08/21/17 0914 PATH REV previously reported as: October HYPOCHROMASIA 2+ (Normal) POLYCHROMASIA 1+ (Normal) PLT EST ADEQUATE (Normal) MONOCYTE 3 % (Normal) Range: 0-10 LYMPH 2 % (Abnormal) Range: 19-41 BLAST 1 % (Abnormal) Range: 0-0 MYELO 2 (Abnormal) Range: 0-0 META 1 % (Normal) Range: 0-1 BAND 7 % (Abnormal) Range: 0-5 SEGS 84 % (Abnormal) Range: 47-70 CELLS COUNTED 100 (Normal) Absolute Lymph 0.54 {X10_3/ul} (Abnormal) Range: 0.83-4.51 Absolute Neut 27.8 {X10_3/uL} (Abnormal) Range: 2.0-7.7 MPV 10.7 fL (Normal) Range: 6.2-12.0 PLT 285 K/mm3 (Normal) Range: 150-450 RDW SD 85.1 fL (Abnormal) Range: 35.1-43.9 RDW CV 24.7 % (Abnormal) Range: 11.6-14.6 MCHC 29.8 {g/gl} (Abnormal) Range: 32-36 MCH 29.5 pg (Normal) Range: 27.0-32.0 MCV 98.9 fL (Abnormal) Range: 80-94 HCT 27.2 % (Abnormal) Range: 40-54 HGB 8.1 g/dL (Abnormal) Range: 13.0-16.5 RBC 2.75 {M/mm3} (Abnormal) Range: 4.6-6.2 WBC 27.2 K/mm3 (Abnormal) Range: 4.4-11.0 :56 Comprehensive Metabolic Profil Comments: [facility] [address] [place], [place], [id number] GAP 10 (Normal) Range: 5-15 CO2 25.0 mmol/L (Normal) Range: 21.0-32.0 CL 107 mmol/L (Normal) Range: 98-107 K 3.9 mmol/L (Normal) Range: 3.5-5.1 NA 142 mmol/L (Normal) Range: 136-145 T BILI 0.70 mg/dL (Normal) Range: 0.20-1.00 ALT 18 U/L (Normal) Range: 16-61 Comments: Please note revised ALT reference range yknquolht99/28/2018. ALK P 108 U/L (Normal) Range: 45-117 AST 21 U/L (Normal) Range: 15-37 CA 8.3 mg/dL (Abnormal) Range: 8.5-10.1 A/G 1.0 {RATIO} (Normal) Range: 0.9-2.4 GLOB 3.3 g/dL (Normal) Range: 2.2-4.2 ALB 3.2 g/dL (Normal) Range: 3.2-5.0 T PROT 6.5 g/dL (Normal) Range: 6.4-8.2 BUN/CRE 13.0 {RATIO} (Normal) Range: 10-20 Estimated CRCL 60.83 ml/min (Normal) EST GFR - AA 80 mL/min (Normal) Comments: GFR Calc EST GFR 67 mL/min (Normal) Comments: Non- GFR Calc CREAT,SERUM 1.15 mg/dL (Normal) Range: 0.70-1.30 Comments: The validity of the calculated GFR AND GFRAA in patients over70 years has not been determined. Clinical correlation isessential. BUN 15 mg/dL (Normal) Range: 7-18 GLU 213 mg/dL (Abnormal) Range: 74-106 Comments: Glucose result greater than or equal to 200 mg/dLsuggests DIABETES MELLITUS per A.D.A. criteria.Please note revised GLUCOSE reference range sztfnzygt53/02/2018. 20-Aug-20179:56 NRBC PANEL Comments: [facility] [address] [place], [place], [id number] NRBC # 0.17 {10_3/uL} (Normal) Range: 0-5 NRBC, FLAGGED 0.6 % (Normal) Range: 0-5 :40 RC Comments: Non-[facility] Laboratory - refer to report for specific site [id number] TRANSFUSED PRODUCT: T AND S with Crossmatch, Red Cells COUNT: 1 (Normal) :40 Type AND Screen Comments: CMV NEG?* NGive When? 08/14/17Irradiated? NLeukodepleted? YReason for Type AND Screen/Red Cells: [facility] [address] [place], [place], [id number] Antibody Screen NEGATIVE (Normal) BLOOD TYPE GEL O POSITIVE (Normal) :39 CBC W/Diff, Automated Comments: Reason for Laboratory Test [facility] [address]f1334 [facility], [address] PATH REV Reviewed (Normal) Comments: Leukocytosis with neutrophilic left shift.Macrocytic anemia.Thrombocytopenia.Clinical correlation necessary.Silvio Garcias M.D. 08/14/17 AMENDED REPORT 08/14/17 1346 PATH REV previously reported as: October foll RED CELL MORPH NORM C+C {NORMAL} (Normal) PLT EST SLT DEC (Normal) MONOCYTE 3 % (Normal) Range: 0-10 LYMPH 11 % (Abnormal) Range: 19-41 PROMYELO 11 (Abnormal) Range: 0-0 MYELO 1 (Abnormal) Range: 0-0 META 9 % (Abnormal) Range: 0-1 BAND 8 % (Abnormal) Range: 0-5 SEGS 57 % (Normal) Range: 47-70 CELLS COUNTED 100 (Normal) Absolute Lymph 2.67 {X10_3/ul} Range: 0.83-4.51 (Normal) Absolute Neut 15.8 {X10_3/uL} Range: 2.0-7.7 (Abnormal) MPV 10.7 fL (Normal) Range: 6.2-12.0 PLT 100 K/mm3 (Abnormal) Range: 150-450 RDW SD 64.6 fL (Abnormal) Range: 35.1-43.9 RDW CV 21.1 % (Abnormal) Range: 11.6-14.6 MCHC 29.4 {g/gl} Range: 32-36 (Abnormal) MCH 28.1 pg (Normal) Range: 27.0-32.0 MCV 95.4 fL (Abnormal) Range: 80-94 HCT 24.8 % (Abnormal) Range: 40-54 HGB 7.3 g/dL (Abnormal) Range: 13.0-16.5 RBC 2.60 {M/mm3} Range: 4.6-6.2 (Abnormal) WBC 24.3 K/mm3 (Abnormal) Range: 4.4-11.0 26-Lim-99201:39 Lipid Profile Comments: [facility] [address] [place], [place], [address] VLDL 31 mg/dL (Normal) Range: 5-40 LDL 19 mg/dL (Normal) Range: 0-130 HDL 25 mg/dL (Abnormal) Comments: The drugs N-Acetylcysteine and Metamizole may falselydepress this assay. Reference Range HDL <40 mg/dL Low HDL Cholesterol HDL >or= 60 mg/dL High HDL Cholesterol TRIG 155 mg/dL (Normal) Comments: The drugs N-Acetylcysteine and Metamizole may falselydepress this assay.Serum Triglycerides Reference Interval Normal <150 mg/dL Borderline high 150 - 199 mg/dL High 200 - 499 mg/dL Very High > or = 500 mg/dL CHOL 75 mg/dL (Normal) Comments: <200 mg/dL Desirable 200-240 mg/dL Borderline >240 mg/dL High Risk :39 Liver Profile Comments: [facility] [address] [place], [place], [address] D BILI 0.34 mg/dL (Abnormal) Range: 0.00-0.30 T BILI 0.70 mg/dL (Normal) Range: 0.20-1.00 ALT 23 U/L (Normal) Range: 16-61 Comments: Please note revised ALT reference range hfraleunl32/28/2018. ALK P 108 U/L (Normal) Range: 45-117 AST 29 U/L (Normal) Range: 15-37 GLOB 3.1 g/dL (Normal) Range: 2.2-4.2 ALB 3.3 g/dL (Normal) Range: 3.2-5.0 T PROT 6.4 g/dL (Normal) Range: 6.4-8.2 05-Qnl-174905:10 Comments: Non-[facility] Laboratory - refer to report for specific site [id number] TRANSFUSED PRODUCT: T AND S with Crossmatch, Red Cells COUNT: 1 (Normal) [id number]-[id number]:10 Type AND Screen Comments: CMV NEG?* NGive When? 08/06/17Irradiated? NLeukodepleted? YReason for Type AND Screen/Red Cells: [facility] [address] [place], [place], [address] Antibody Screen NEGATIVE (Normal) BLOOD TYPE GEL O POSITIVE (Normal) :03 CBC W/Diff, Automated Comments: Reason for Laboratory Test [facility] [address] [place], [place], [address] PATH REV Reviewed (Normal) Comments: Leukocytopenia.Normocytic anemia.Clinical correlation suggested.Kel Morales D.O. 08/06/17 AMENDED REPORT 08/06/17 0915 PATH REV previously reported as: October kristopher SMEAR COMMENT (Normal) Comments: LYMPHOPENIA NOTED Absolute Lymph 0.60 {X10_3/ul} Range: 0.83-4.51 (Abnormal) Absolute Neut 1.9 {X10_3/uL} (Abnormal) Range: 2.0-7.7 IM GRAN % 1.600 % (Abnormal) Range: 0.0-0.9 Comments: IG% - Immature Granulocytes (promyelocytes, myelocytes andmetamyelocytes) > 1% indicates that a LEFT SHIFT is Present. BASO% 0.4 % (Normal) Range: 0-1 EO% 0.0 % (Normal) Range: 0-5 MONO% 1.9 % (Normal) Range: 0-10 LY% 23.3 % (Normal) Range: 19-41 NEUT% 72.8 % (Abnormal) Range: 47-70 MPV 10.5 fL (Normal) Range: 6.2-12.0 PLT 150 K/mm3 (Normal) Range: 150-450 RDW SD 69.2 fL (Abnormal) Range: 35.1-43.9 RDW CV 20.8 % (Abnormal) Range: 11.6-14.6 MCHC 29.5 {g/gl} (Abnormal) Range: 32-36 MCH 27.4 pg (Normal) Range: 27.0-32.0 MCV 92.8 fL (Normal) Range: 80-94 HCT 24.4 % (Abnormal) Range: 40-54 HGB 7.2 g/dL (Abnormal) Range: 13.0-16.5 RBC 2.63 {M/mm3} (Abnormal) Range: 4.6-6.2 WBC 2.6 K/mm3 (Abnormal) Range: 4.4-11.0 48-Nod-360099:45 Ferritin Comments: Reason for Laboratory Test [facility] [address] [place], [place], [id number] FERRITIN 59 ng/mL (Normal) Range: 26-388 25-Qlj-820898:45 Iron+Iron Binding Capacity Comments: Reason for Laboratory Test [facility] [address] [place], [place], [address] IRON SATURATION 8.1 % (Abnormal) Range: 15.0-55.0 IRON 39 ug/dL (Abnormal) Range: 65-175 TIBC 484 ug/dL (Abnormal) Range: 250-450 85-Sop-53318:08 CBC W/Diff, Automated Comments: [facility] [address] [place], [place], [address] PATH REV Reviewed (Normal) Comments: Neutrophilic leukocytosis.Macrocytic anemia.Clinical correlation suggested.Kel Morales D.O. 07/31/17 AMENDED REPORT 07/31/17 0918 PATH REV previously reported as: May foll HYPOCHROMASIA 2+ (Normal) POLYCHROMASIA 2+ (Normal) ANISO 2+ (Normal) NRBC,MANUAL CT 2 % (Normal) Range: 0-5 LYMPH 2 % (Abnormal) Range: 19-41 META 6 % (Abnormal) Range: 0-1 BAND 1 % (Normal) Range: 0-5 SEGS 91 % (Abnormal) Range: 47-70 CELLS COUNTED 100 (Normal) Absolute Lymph 0.40 {X10_3/ul} (Abnormal) Range: 0.83-4.51 Absolute Neut 19.5 {X10_3/uL} (Abnormal) Range: 2.0-7.7 MPV 10.6 fL (Normal) Range: 6.2-12.0 PLT 413 K/mm3 (Normal) Range: 150-450 RDW SD 73.6 fL (Abnormal) Range: 35.1-43.9 RDW CV 22.2 % (Abnormal) Range: 11.6-14.6 MCHC 29.0 {g/gl} (Abnormal) Range: 32-36 MCH 27.9 pg (Normal) Range: 27.0-32.0 MCV 96.3 fL (Abnormal) Range: 80-94 HCT 28.3 % (Abnormal) Range: 40-54 HGB 8.2 g/dL (Abnormal) Range: 13.0-16.5 RBC 2.94 {M/mm3} (Abnormal) Range: 4.6-6.2 WBC 21.2 K/mm3 (Abnormal) Range: 4.4-11.0 57-Igl-57649:08 Comprehensive Metabolic Profil Comments: [facility] [address] [place], [address] GAP 13 (Normal) Range: 5-15 CO2 23.0 mmol/L (Normal) Range: 21.0-32.0 CL 106 mmol/L (Normal) Range: 98-107 K 4.2 mmol/L (Normal) Range: 3.5-5.1 NA 142 mmol/L (Normal) Range: 136-145 T BILI 0.60 mg/dL (Normal) Range: 0.20-1.00 ALT 47 U/L (Normal) Range: 16-61 Comments: Please note revised ALT reference range wyxxoubvy96/28/2018. ALK P 116 U/L (Normal) Range: 45-117 AST 21 U/L (Normal) Range: 15-37 CA 8.2 mg/dL (Abnormal) Range: 8.5-10.1 A/G 0.8 {RATIO} (Abnormal) Range: 0.9-2.4 GLOB 3.7 g/dL (Normal) Range: 2.2-4.2 ALB 3.1 g/dL (Abnormal) Range: 3.2-5.0 T PROT 6.8 g/dL (Normal) Range: 6.4-8.2 BUN/CRE 13.8 {RATIO} (Normal) Range: 10-20 Estimated CRCL 60.31 ml/min (Normal) EST GFR - AA 80 mL/min (Normal) Comments: GFR Calc EST GFR 66 mL/min (Normal) Comments: Non- GFR Calc CREAT,SERUM 1.16 mg/dL (Normal) Range: 0.70-1.30 Comments: The validity of the calculated GFR AND GFRAA in patients over70 years has not been determined. Clinical correlation isessential. BUN 16 mg/dL (Normal) Range: 7-18 GLU 220 mg/dL (Abnormal) Range: 74-106 Comments: Glucose result greater than or equal to 200 mg/dLsuggests DIABETES MELLITUS per A.D.A. criteria.Please note revised GLUCOSE reference range jzralvkfn80/02/2018. 8-Ruw-[id number]:50 RC Comments: [facility] Laboratory - refer to report for specific site [id number] TRANSFUSED PRODUCT: T AND S with Crossmatch, Red Cells COUNT: 1 (Normal) [id number]:50 Type AND Screen Comments: CMV NEG?* NGive When? 07/23/17Irradiated? NLeukodepleted? YReason for Type AND Screen/Red Cells: [facility] Zcxxnmbujw1507 [facility]. [place], [place], [id number] Antibody Screen NEGATIVE (Normal) BLOOD TYPE GEL O POSITIVE (Normal) 7-Dyv-285519:41 CBC W/Diff, Automated Comments: [facility] [address] [facility]. [place], [place], [id number] PATH REV Reviewed (Normal) Comments: Neutrophilic left shift.Macrocytic anemia.Thrombocytopenia.Clinical correlation necessary.Silvio Garcias M.D. 07/23/17 AMENDED REPORT 07/23/17 1202 PATH REV previously reported as: May foll RED CELL MORPH NORM C+C {NORMAL} (Normal) PLT EST MOD DEC (Normal) EOS 2 % (Normal) Range: 0-5 MONOCYTE 14 % (Abnormal) Range: 0-10 LYMPH 18 % (Abnormal) Range: 19-41 PROMYELO 2 (Abnormal) Range: 0-0 SEGS 64 % (Normal) Range: 47-70 CELLS COUNTED 100 (Normal) Absolute Lymph 1.20 {X10_3/ul} Range: 0.83-4.51 (Normal) Comments: AMENDED REPORT 07/23/17 0115 Absolute Lymph previously reported as: 1.59 X10^3/ul Absolute Neut 4.3 {X10_3/uL} Range: 2.0-7.7 (Normal) Comments: AMENDED REPORT 07/23/17 0114 Absolute Neut previously reported as: 3.7 X10^3/uL MPV 11.5 fL (Normal) Range: 6.2-12.0 PLT 99 K/mm3 (Abnormal) Range: 150-450 RDW SD 56.1 fL (Abnormal) Range: 35.1-43.9 RDW CV 17.3 % (Abnormal) Range: 11.6-14.6 MCHC 29.9 {g/gl} Range: 32-36 (Abnormal) MCH 28.2 pg (Normal) Range: 27.0-32.0 MCV 94.3 fL (Abnormal) Range: 80-94 HCT 23.1 % (Abnormal) Range: 40-54 HGB 6.9 g/dL (Abnormal) Range: 13.0-16.5 RBC 2.45 {M/mm3} Range: 4.6-6.2 (Abnormal) WBC 6.7 K/mm3 (Normal) Range: 4.4-11.0 IM GRAN % 1.500 % (Abnormal) Range: 0.0-0.9 Comments: IG% - Immature Granulocytes (promyelocytes, myelocytes andmetamyelocytes) > 1% indicates that a LEFT SHIFT is Present. BASO% 0.3 % (Normal) Range: 0-1 EO% 1.2 % (Normal) Range: 0-5 MONO% 17.7 % (Abnormal) Range: 0-10 LY% 23.8 % (Normal) Range: 19-41 NEUT% 55.5 % (Normal) Range: 47-70 [id number] NRBC PANEL Comments: [facility] [id number] [place], [place], [id number] NRBC # 0.32 {10_3/uL} (Normal) Range: 0-5 NRBC, FLAGGED 4.8 % (Normal) Range: 0-5 [id number] CBC, PLATELETS & MANUAL DIFF Comments: PATIENT NOT FASTINGPERFORMED BY: [facility] [id number] [facility] [id number]) Hematology Comments: Note: (Normal) Comments: Verified by microscopic examination. Immature Grans (Abs) 0.0 {x10E3/uL} (Normal) Range: 0.0-0.1 Immature Granulocytes 0 % (Normal) Baso (Absolute) 0.0 {x10E3/uL} (Normal) Range: 0.0-0.2 Eos (Absolute) 0.1 {x10E3/uL} (Normal) Range: 0.0-0.4 Monocytes(Absolute) 0.3 {x10E3/uL} (Normal) Range: 0.1-0.9 Lymphs (Absolute) 1.3 {x10E3/uL} (Normal) Range: 0.7-3.1 Neutrophils (Absolute) 2.2 {x10E3/uL} (Normal) Range: 1.4-7.0 Basos 1 % (Normal) Eos 3 % (Normal) Monocytes 8 % (Normal) Lymphs 33 % (Normal) Neutrophils 55 % (Normal) Platelets 88 {x10E3/uL} (Abnormal) Range: 150-379 RDW 16.2 % (Abnormal) Range: 12.3-15.4 MCHC 31.9 g/dL (Normal) Range: 31.5-35.7 MCH 28.5 pg (Normal) Range: 26.6-33.0 MCV 89 fL (Normal) Range: 79-97 Hematocrit 23.5 % (Abnormal) Range: 37.5-51.0 Hemoglobin 7.5 g/dL (Abnormal) Range: 13.0-17.7 RBC 2.63 {x10E6/uL} (Abnormal) Range: 4.14-5.80 WBC 4.0 {x10E3/uL} (Normal) Range: 3.4-10.8 [id number]-[id number]:27 CBC W/Diff, Automated Comments: Reason for Laboratory Test [facility] [id number] [place], [address] Absolute Lymph 0.68 {X10_3/ul} (Abnormal) Range: 0.83-4.51 Absolute Neut 11.7 {X10_3/uL} (Abnormal) Range: 2.0-7.7 IM GRAN % 0.200 % (Normal) Range: 0.0-0.9 Comments: IG% - Immature Granulocytes (promyelocytes, myelocytes andmetamyelocytes) > 1% indicates that a LEFT SHIFT is Present. BASO% 0.1 % (Normal) Range: 0-1 EO% 2.4 % (Normal) Range: 0-5 MONO% 5.8 % (Normal) Range: 0-10 LY% 5.0 % (Abnormal) Range: 19-41 NEUT% 86.5 % (Abnormal) Range: 47-70 MPV 10.0 fL (Normal) Range: 6.2-12.0 PLT 284 K/mm3 (Normal) Range: 150-450 RDW SD 59.6 fL (Abnormal) Range: 35.1-43.9 RDW CV 17.3 % (Abnormal) Range: 11.6-14.6 MCHC 29.4 {g/gl} (Abnormal) Range: 32-36 MCH 27.8 pg (Normal) Range: 27.0-32.0 MCV 94.7 fL (Abnormal) Range: 80-94 HCT 28.6 % (Abnormal) Range: 40-54 HGB 8.4 g/dL (Abnormal) Range: 13.0-16.5 RBC 3.02 {M/mm3} (Abnormal) Range: 4.6-6.2 WBC 13.5 K/mm3 (Abnormal) Range: 4.4-11.0 61-Lgg-17142:27 Comprehensive Metabolic Profil Comments: Reason for Laboratory Test [facility] [address] [place], [address] GAP 8 (Normal) Range: 5-15 CO2 28.0 mmol/L (Normal) Range: 21.0-32.0 CL 105 mmol/L (Normal) Range: 98-107 K 4.1 mmol/L (Normal) Range: 3.5-5.1 NA 141 mmol/L (Normal) Range: 136-145 T BILI 0.60 mg/dL (Normal) Range: 0.20-1.00 ALT 18 U/L (Normal) Range: 12-78 ALK P 73 U/L (Normal) Range: 45-117 AST 17 U/L (Normal) Range: 15-37 CA 8.3 mg/dL (Abnormal) Range: 8.5-10.1 A/G 0.9 {RATIO} (Normal) Range: 0.9-2.4 GLOB 3.5 g/dL (Normal) Range: 2.2-4.2 ALB 3.2 g/dL (Abnormal) Range: 3.4-5.0 Comments: Please note revised Albumin AND Globulin reference rangeeffective 2017. T PROT 6.7 g/dL (Normal) Range: 6.4-8.2 BUN/CRE 14.3 {RATIO} (Normal) Range: 10-20 Estimated CRCL 66.63 ml/min (Normal) EST GFR - AA 89 mL/min (Normal) Comments: GFR Calc EST GFR 74 mL/min (Normal) Comments: Non- GFR Calc CREAT,SERUM 1.05 mg/dL (Normal) Range: 0.70-1.30 Comments: The validity of the calculated GFR AND GFRAA in patients over70 years has not been determined. Clinical correlation isessential. BUN 15 mg/dL (Normal) Range: 7-18 GLU 167 mg/dL (Abnormal) Range: 70-110 Comments: Fasting Glucose result greater than or equal to 126 mg/dLsuggests DIABETES MELLITUS per A.D.A. criteria. 01-Rxx-427781:51 Serum Creatinine AND GFR Comments: [facility] [address] [place], [place], [id number] EST GFR - AA 81 mL/min (Normal) Comments: GFR Calc EST GFR 67 mL/min (Normal) Comments: Non- GFR Calc CREAT,SERUM 1.14 mg/dL (Normal) Range: 0.70-1.30 Comments: The validity of the calculated GFR AND GFRAA in patients over70 years has not been determined. Clinical correlation isessential. :52 Blood Gases by [facility] Comments: [facility] LaboratoryPoint of [address] [place] [address] SO2 ISTAT 87 % (Abnormal) Range: 95-99 TOTAL CO2 ISTAT 29 mmol/L (Normal) BE ISTAT 4 mmol/L (Abnormal) HCO3 ISTAT 27.9 mmol/L (Abnormal) Range: 22-26 PO2 I-STAT 49 {mmHG} (Abnormal) Range: 75-100 pCO2 - ISTAT 38.1 {mmHg} (Normal) Range: 35-45 pH - I-STAT 7.47 (Abnormal) Range: 7.35-7.45 O2 Delivery Dev Room Air (Normal) RIKY TEST POS (Normal) SITE L Radial (Normal) BLD GAS TYPE ART (Normal) 49-Jju-797511:32 CBC, PLATELETS & MANUAL DIFF Comments: PATIENT NOT FASTINGPERFORMED BY: [facility] Hmgosm6474 [facility] [id number] ([id number]) Immature Grans (Abs) 0.0 {x10E3/uL} (Normal) Range: 0.0-0.1 Immature Granulocytes 0 % (Normal) Baso (Absolute) 0.0 {x10E3/uL} (Normal) Range: 0.0-0.2 Eos (Absolute) 0.1 {x10E3/uL} (Normal) Range: 0.0-0.4 Monocytes(Absolute) 0.9 {x10E3/uL} (Normal) Range: 0.1-0.9 Lymphs (Absolute) 1.3 {x10E3/uL} (Normal) Range: 0.7-3.1 Neutrophils (Absolute) 10.5 {x10E3/uL} (Abnormal) Range: 1.4-7.0 Basos 0 % (Normal) Eos 1 % (Normal) Monocytes 7 % (Normal) Lymphs 10 % (Normal) Neutrophils 82 % (Normal) Platelets 283 {x10E3/uL} (Normal) Range: 150-379 RDW 15.4 % (Normal) Range: 12.3-15.4 MCHC 32.1 g/dL (Normal) Range: 31.5-35.7 MCH 29.5 pg (Normal) Range: 26.6-33.0 MCV 92 fL (Normal) Range: 79-97 Hematocrit 38.3 % (Normal) Range: 37.5-51.0 Hemoglobin 12.3 g/dL (Abnormal) Range: 12.6-17.7 RBC 4.17 {x10E6/uL} (Normal) Range: 4.14-5.80 WBC 12.8 {x10E3/uL} (Abnormal) Range: 3.4-10.8 :05 CBC W/Diff, Automated Comments: [facility] [address] [place], [place], [id number] Absolute Lymph 1.15 {X10_3/ul} (Normal) Range: 0.83-4.51 Absolute Neut 9.3 {X10_3/uL} (Abnormal) Range: 2.0-7.7 IM GRAN % 0.300 % (Normal) Range: 0.0-0.9 Comments: IG% - Immature Granulocytes (promyelocytes, myelocytes andmetamyelocytes) > 1% indicates that a LEFT SHIFT is Present. BASO% 0.3 % (Normal) Range: 0-1 EO% 1.2 % (Normal) Range: 0-5 MONO% 10.9 % (Abnormal) Range: 0-10 LY% 9.6 % (Abnormal) Range: 19-41 NEUT% 77.7 % (Abnormal) Range: 47-70 MPV 10.9 fL (Normal) Range: 6.2-12.0 PLT 234 K/mm3 (Normal) Range: 150-450 RDW SD 57.5 fL (Abnormal) Range: 35.1-43.9 RDW CV 16.4 % (Abnormal) Range: 11.6-14.6 MCHC 31.5 {g/gl} (Abnormal) Range: 32-36 MCH 30.4 pg (Normal) Range: 27.0-32.0 MCV 96.7 fL (Abnormal) Range: 80-94 HCT 41.0 % (Normal) Range: 40-54 HGB 12.9 g/dL (Abnormal) Range: 13.0-16.5 RBC 4.24 {M/mm3} (Abnormal) Range: 4.6-6.2 WBC 11.9 K/mm3 (Abnormal) Range: 4.4-11.0 73-Ocs-352443:05 Comprehensive Metabolic Profil Comments: [facility] [address] [place], [address] GAP 8 (Normal) Range: 5-15 CO2 31.0 mmol/L (Normal) Range: 21.0-32.0 CL 107 mmol/L (Normal) Range: 98-107 K 4.0 mmol/L (Normal) Range: 3.5-5.1 NA 146 mmol/L (Abnormal) Range: 136-145 CA 9.0 mg/dL (Normal) Range: 8.5-10.1 A/G 1.0 {RATIO} (Normal) Range: 0.9-2.4 BUN/CRE 12.4 {RATIO} (Normal) Range: 10-20 Estimated CRCL 66.63 ml/min (Normal) EST GFR - AA 89 mL/min (Normal) Comments: GFR Calc EST GFR 74 mL/min (Normal) Comments: Non- GFR Calc CREAT,SERUM 1.05 mg/dL (Normal) Range: 0.70-1.30 Comments: The validity of the calculated GFR AND GFRAA in patients over70 years has not been determined. Clinical correlation isessential. BUN 13 mg/dL (Normal) Range: 7-18 GLU 101 mg/dL (Normal) Range: 70-110 63-Teo-088941:05 Liver Profile Comments: [facility] [address] [place], [address] D BILI 0.25 mg/dL (Normal) Range: 0.00-0.30 T BILI 1.00 mg/dL (Normal) Range: 0.20-1.00 ALT 19 U/L (Normal) Range: 12-78 ALK P 80 U/L (Normal) Range: 45-117 AST 22 U/L (Normal) Range: 15-37 GLOB 3.5 g/dL (Normal) Range: 2.3-3.5 ALB 3.5 g/dL (Normal) Range: 3.4-5.0 T PROT 7.0 g/dL (Normal) Range: 6.4-8.2 43-Czh-158413:05 MRSA/SAID SCREEN Comments: [facility] [address] [place], [address] MRSA+SAID SCRN See Note (Normal) Comments: MRSA/SAID SCRNS. AUREUS S. aureus NegativeMRSA MRSA Negative 39-Alg-157000:05 Partial Thromboplast Time Comments: [facility] [address] [place], [place], [id number] PTT 32.3 s (Normal) Range: 24.1-36.2 57-Pti-254547:05 Prothrombin Time w/INR Comments: [facility] [address] [place], [place], [id number] INR 1.8 (Normal) PROTIME 20.4 s (Abnormal) Range: 11.7-14.9 19-Feb-20179:35 HgA1C , Office (50179) HgA1C , Office 5.6 % (Normal) Range: 4.6 - 7.1 01-Fph-299930:34 Basic Metabolic Profile (BMP) Comments: NO VRO CHARGE PT [facility]LOOD[facility] DR [facility] [address] [place], [place], [id number] GAP 7 (Normal) Range: 5-15 CO2 33.0 mmol/L (Abnormal) Range: 21.0-32.0 CL 105 mmol/L (Normal) Range: 98-107 K 3.6 mmol/L (Normal) Range: 3.5-5.1 NA 145 mmol/L (Normal) Range: 136-145 CA 9.0 mg/dL (Normal) Range: 8.5-10.1 BUN/CRE 13.7 {RATIO} (Normal) Range: 10-20 EST GFR - AA 74 mL/min (Normal) Comments: GFR Calc EST GFR 61 mL/min (Normal) Comments: Non- GFR Calc CREAT,SERUM 1.24 mg/dL (Normal) Range: 0.70-1.30 Comments: The validity of the calculated GFR AND GFRAA in patients over70 years has not been determined. Clinical correlation isessential. BUN 17 mg/dL (Normal) Range: 7-18 GLU 101 mg/dL (Normal) Range: 70-110 88-Gqn-433059:29 CBC W/Diff, Automated Comments: [facility] [address] [place], [place], [id number] ; will review on 7.19 Absolute Lymph 0.99 {X10_3/ul} (Normal) Range: 0.83-4.51 Absolute Neut 7.5 {X10_3/uL} (Normal) Range: 2.0-7.7 IM GRAN % 0.300 % (Normal) Range: 0.0-0.9 Comments: IG% - Immature Granulocytes (promyelocytes, myelocytes andmetamyelocytes) > 1% indicates that a LEFT SHIFT is Present. BASO% 0.6 % (Normal) Range: 0-1 EO% 1.8 % (Normal) Range: 0-5 MONO% 9.4 % (Normal) Range: 0-10 LY% 10.2 % (Abnormal) Range: 19-41 NEUT% 77.7 % (Abnormal) Range: 47-70 MPV 10.9 fL (Normal) Range: 6.2-12.0 PLT 267 K/mm3 (Normal) Range: 150-450 RDW SD 54.8 fL (Abnormal) Range: 35.1-43.9 RDW CV 16.4 % (Abnormal) Range: 11.6-14.6 MCHC 32.0 {g/gl} (Normal) Range: 32-36 MCH 30.4 pg (Normal) Range: 27.0-32.0 MCV 95.2 fL (Abnormal) Range: 80-94 HCT 41.3 % (Normal) Range: 40-54 HGB 13.2 g/dL (Normal) Range: 13.0-16.5 RBC 4.34 {M/mm3} (Abnormal) Range: 4.6-6.2 WBC 9.7 K/mm3 (Normal) Range: 4.4-11.0 30-Njo-437254:29 Comprehensive Metabolic Profil Comments: Has Patient had X-rays with Contrast this admission? NIs Patient on Heparin? [facility] [address] [place], [place], [id number] GAP 6 (Normal) Range: 5-15 CO2 32.0 mmol/L (Normal) Range: 21.0-32.0 CL 106 mmol/L (Normal) Range: 98-107 K 3.6 mmol/L (Normal) Range: 3.5-5.1 NA 144 mmol/L (Normal) Range: 136-145 T BILI 0.90 mg/dL (Normal) Range: 0.20-1.00 ALT 18 U/L (Normal) Range: 12-78 ALK P 67 U/L (Normal) Range: 45-117 AST 18 U/L (Normal) Range: 15-37 CA 8.8 mg/dL (Normal) Range: 8.5-10.1 A/G 1.0 {RATIO} (Normal) Range: 0.9-2.4 GLOB 3.7 g/dL (Abnormal) Range: 2.3-3.5 ALB 3.7 g/dL (Normal) Range: 3.4-5.0 T PROT 7.4 g/dL (Normal) Range: 6.4-8.2 BUN/CRE 12.7 {RATIO} (Normal) Range: 10-20 EST GFR - AA 73 mL/min (Normal) Comments: GFR Calc EST GFR 60 mL/min (Normal) Comments: Non- GFR Calc CREAT,SERUM 1.26 mg/dL (Normal) Range: 0.70-1.30 Comments: The validity of the calculated GFR AND GFRAA in patients over70 years has not been determined. Clinical correlation isessential. BUN 16 mg/dL (Normal) Range: 7-18 GLU 101 mg/dL (Normal) Range: 70-110 34-Lzr-879423:29 Free T3 Comments: Has Patient had X-rays with Contrast this admission? NIs Patient on Heparin? [facility] [address] [facility] [address] [place], [place], [id number] FREE T3 2.1 pg/mL (Abnormal) Range: 2.18-3.98 09-Aij-663343:29 Lipid Profile Comments: Has Patient had X-rays with Contrast this admission? NIs Patient on Heparin? [facility] [address] [place], [place], [address] VLDL 29 mg/dL (Normal) Range: 5-40 LDL 94 mg/dL (Normal) Range: 0-130 HDL 53 mg/dL (Normal) Comments: The drugs N-Acetylcysteine and Metamizole may falsely deressthis assay. Reference Range HDL <40 mg/dL Low HDL Cholesterol HDL >or= 60 mg/dL High HDL Cholesterol TRIG 147 mg/dL (Normal) Comments: The drugs N-Acetylcysteine and Metamizole may falsely deressthis assay.Serum Triglycerides Reference Interval Normal <150 mg/dL Borderline high 150 - 199 mg/dL High 200 - 499 mg/dL Very High > or = 500 mg/dL CHOL 176 mg/dL (Normal) Comments: <200 mg/dL Desirable 200-240 mg/dL Borderline >240 mg/dL High Risk 29-Nyl-389873:29 PSA,Total - Annual Screen Comments: Has Patient had X-rays with Contrast this admission? NIs Patient on Heparin? [facility] [address], [address] PSA,TOT SCREEN 0.45 ng/mL (Normal) Range: 0.00-4.00 Comments: This test was performed using the TPSA assay method for [employer] chemistry system. Values obtained with differentassay methods cannot be used interchangably.When changing PSA assays in the course of monitoring apatient, additional sequential testing should be carriedout to confirm baseline values. 01-Oeo-401358:29 T4 Free Direct Comments: Has Patient had X-rays with Contrast this admission? NIs Patient on Heparin? [facility] [address] [place], [address] T4 FREE DIRECT 0.96 ng/dL (Normal) Range: 0.76-1.46 50-Ntm-573819:29 Thyroid Stim Hormone (TSH) Comments: Has Patient had X-rays with Contrast this admission? NIs Patient on Heparin? [facility] [address] [place], [address] TSH 2.61 {uIU/mL} (Normal) Range: 0.358-3.74 03-Axr-481314:29 Vitamin B12 740 pg/mL (Normal) Comments: [facility] [address] [place], [address] Range: 211-911 :19 Blood Gas Specimen Type Comments: [facility] LaboratoryPoint of [address] [place] [address] BLD GAS TYPE JACKIE (Normal) :19 VBG PO2 I-STAT 30 {mmHg} (Normal) Comments: [place] [address] [place] [address] Range: 25-40 :19 VBG SO2 ISTAT 54 % (Normal) Comments: [place] [address] [place] [address] Range: 50-70 :16 Blood Gas Specimen Type Comments: [place] [address] [place] [address]( BLD GAS TYPE JACKIE (Normal) :16 VBG PO2 I-STAT 26 {mmHg} (Normal) Comments: [place] [address] [place] [address] Range: 25-40 :16 VBG SO2 ISTAT 46 % (Abnormal) Comments: [place] [address] [place] [address] Range: 50-70 :09 Blood Gas Specimen Type Comments: [place] [address] [place] [address] BLD GAS TYPE ART (Normal) :09 PO2 I-STAT 54 {mmHG} (Abnormal) Comments: [place] [address] [place] [address] Range: 75-100 :09 SO2 ISTAT 87 % (Abnormal) Comments: [place] [address] [place] [address] Range: 95-99 :06 Troponin-I Comments: Serial Specimen #1, #2 or #3? 1'TROP' Serial specimen #1, #2, #3, or #4: [address] [address] [place], [address] ; ordered by Dr. Frye TROPONIN-I < 0.02 ng/mL (Normal) Comments: TROPONIN-I EXPECTED VALUES <0.05 NEGATIVE 0.06 - 0.59 AT RISK OF TX > OR = 0.60 SUGGEST TX 34-Zbp-483880:03 URINE VI CULTURE-IDENTIFICATN Comments: PATIENT NOT FASTINGPERFORMED BY: [facility] Dgilhc0792 [facility] [id number] Information: [id number] ([id number]) Result 1 NG36 (Normal) Comments: No growth in 36 - 48 hours. Urine Culture,Comprehensive Final report (Normal) 89-Tft-971828:00 Culture, Urine Comments: [facility] [address] [place], [address] CUUR See Note (Normal) Comments: Urine CultureORGANISM 1: Mixed Gram Positive OrganismsColony Count 1000-10,000MIX CULTURE Mixed contaminants. Submit a new specimen if indicated. 83-Hjp-621864:13 CBC W/Diff, Automated Comments: [facility] [address] [place], [place], [address] ; ordered by Dr. Chatman Absolute Lymph 1.23 {X10_3/ul} (Normal) Range: 0.83-4.51 Absolute Neut 8.7 {X10_3/uL} (Abnormal) Range: 2.0-7.7 IM GRAN % 0.400 % (Normal) Range: 0.0-0.9 Comments: IG% - Immature Granulocytes (promyelocytes, myelocytes andmetamyelocytes) > 1% indicates that a LEFT SHIFT is Present. BASO% 0.3 % (Normal) Range: 0-1 EO% 1.4 % (Normal) Range: 0-5 MONO% 9.6 % (Normal) Range: 0-10 LY% 10.9 % (Abnormal) Range: 19-41 NEUT% 77.4 % (Abnormal) Range: 47-70 MPV 10.2 fL (Normal) Range: 6.2-12.0 PLT 297 K/mm3 (Normal) Range: 150-450 RDW SD 50.2 fL (Abnormal) Range: 35.1-43.9 RDW CV 14.8 % (Abnormal) Range: 11.6-14.6 MCHC 31.8 {g/gl} (Abnormal) Range: 32-36 MCH 30.0 pg (Normal) Range: 27.0-32.0 MCV 94.1 fL (Abnormal) Range: 80-94 HCT 40.2 % (Normal) Range: 40-54 HGB 12.8 g/dL (Abnormal) Range: 13.0-16.5 RBC 4.27 {M/mm3} (Abnormal) Range: 4.6-6.2 WBC 11.3 K/mm3 (Abnormal) Range: 4.4-11.0 41-Lum-845544:13 Comprehensive Metabolic Profil Comments: [facility] [address] [place], [place], [address] GAP 7 (Normal) Range: 5-15 CO2 31.0 mmol/L (Normal) Range: 21.0-32.0 CL 106 mmol/L (Normal) Range: 98-107 K 3.9 mmol/L (Normal) Range: 3.5-5.1 NA 144 mmol/L (Normal) Range: 136-145 T BILI 0.50 mg/dL (Normal) Range: 0.20-1.00 ALT 18 U/L (Normal) Range: 12-78 ALK P 70 U/L (Normal) Range: 50-136 AST 18 U/L (Normal) Range: 15-37 CA 8.8 mg/dL (Normal) Range: 8.5-10.1 A/G 1.2 {RATIO} (Normal) Range: 0.9-2.4 GLOB 3.1 g/dL (Normal) Range: 2.3-3.5 ALB 3.6 g/dL (Normal) Range: 3.4-5.0 T PROT 6.7 g/dL (Normal) Range: 6.4-8.2 BUN/CRE 12.1 {RATIO} (Normal) Range: 10-20 Estimated CRCL 62.06 ml/min (Normal) EST GFR - AA 80 mL/min (Normal) Comments: GFR Calc EST GFR 66 mL/min (Normal) Comments: Non- GFR Calc CREAT,SERUM 1.16 mg/dL (Normal) Range: 0.70-1.30 Comments: The validity of the calculated GFR AND GFRAA in patients over70 years has not been determined. Clinical correlation isessential. BUN 14 mg/dL (Normal) Range: 7-18 GLU 115 mg/dL (Abnormal) Range: 70-110 Comments: Fasting Glucose result from 110 to <126 mg/dLsuggests IMPAIRED HOMEOSTASIS per A.D.A. criteria. 47-Fju-302914:13 Urinalysis, Complete Comments: How was Urine Obtained? [facility] [address] [place], [place], [address] ; ordered by [employer] MUCUS, URINE 0 SEEN {/hpf} (Normal) BACTERIA 0 SEEN {/hpf} (Normal) SQUAM EPI 0 SEEN {/hpf} (Normal) Range: 0-5 RBC-UA 0 SEEN {/hpf} (Normal) Range: 0-5 WBC 0-5 SEEN {/hpf} (Normal) Range: 0-5 LEUK ESTERASE 25 /ul (Abnormal) OCCULT BLOOD-UR Negative /ul (Normal) NITRITE UR Negative (Normal) UROBILI 1 mg/dL (Abnormal) PROT DIPSTX 30 mg/dL (Abnormal) pH UR 7.0 (Normal) Range: 5.0 - 8.0 SP.GR. DIPSTX 1.010 (Normal) Range: 1.002-1.030 KETONE UR Negative mg/dL (Normal) BILIRUBIN URINE Negative mg/dL (Normal) GLUCOSE, UR Normal mg/dL (Normal) CLARITY Clear (Normal) COLOR Yellow (Normal) 24-May-20158:48 Pathology Report Comments: PERFORMED BY: [facility] Cyto Nepdw70665 [facility] [id number] BY: [facility] Dermatopathology [address] [id number] Information: [id number] See MATER Comments: Material submitted: .SHAVE BIOPSY LEFT BUTTOCKClinician provided ICD-10:D49.2Diag nosis:NEVUS Note (Normal) LIPOMATOSUS.TMZ/05/26/2015Electronically signed: .Tiffany Hector MD, DermatopathologistGross juan alberto cription: .SUBMITTED IN FORMALIN LABELED JV DURHAM AND DESIGNATED LEFTBUTTOCK IS A PORTION OF ROSALES/YELLOW TISSUE MEASURING 1.2 X 1.0 X0.3 CM. THE MARGINS ARE I NKED BLUE. THE SPECIMEN IS SERIALLYSECTIONED INTO FOUR PIECES AND SUBMITTED IN TOTO.XJW/VINPathologist provided ICD-10:D23.5CPT .[id number] 20-Jul-20158:21 METABOLIC PANEL, COMPREHENSIVE Comments: PATIENT WAS FASTINGPERFORMED BY: [facility] Center[facility]ar5303 [facility] [id number] ([id number]) ALT (SGPT) 16 [iU]/L (Normal) Range: 0-44 AST (SGOT) 20 [iU]/L (Normal) Range: 0-40 Alkaline Phosphatase, S 75 [iU]/L (Normal) Range: 39-117 Bilirubin, Total 0.6 mg/dL (Normal) Range: 0.0-1.2 A/G Ratio 1.6 (Normal) Range: 1.1-2.5 Globulin, Total 2.5 g/dL (Normal) Range: 1.5-4.5 Albumin, Serum 4.0 g/dL (Normal) Range: 3.6-4.8 Protein, Total, Serum 6.5 g/dL (Normal) Range: 6.0-8.5 Calcium, Serum 9.2 mg/dL (Normal) Range: 8.6-10.2 Carbon Dioxide, Total 23 mmol/L (Normal) Range: 18-29 Chloride, Serum 99 mmol/L (Normal) Range: 97-108 Potassium, Serum 4.2 mmol/L (Normal) Range: 3.5-5.2 Sodium, Serum 140 mmol/L (Normal) Range: 134-144 BUN/Creatinine Ratio 9 (Abnormal) Range: 10-22 eGFR If Africn Am 79 mL/min/1.73 (Normal) eGFR If NonAfricn Am 68 mL/min/1.73 (Normal) Creatinine, Serum 1.10 mg/dL (Normal) Range: 0.76-1.27 BUN 10 mg/dL (Normal) Range: 8-27 Glucose, Serum 145 mg/dL (Abnormal) Range: 65-99 :21 MICROALBUMIN: CREATININE RATIO Comments: PATIENT WAS FASTINGPERFORMED BY: [facility] [id number]; apt today to review ([id number]) AND (86557) Microalb/Creat Ratio 519.2 {mg/g_creat} (Abnormal) Range: 0.0-30.0 Microalbumin, Urine 722.7 ug/mL (Abnormal) Range: 0.0-17.0 Comments: Results confirmed ondilution. Creatinine, Urine 139.2 mg/dL (Normal) Range: 22.0-328.0 :21 LIPID PANEL ([id number]) Comments: PATIENT WAS FASTINGPERFORMED BY: Capablue70 [facility] [id number] LDL/HDL Ratio 1.1 {ratio_units} (Normal) Range: 0.0-3.6 Comments: LDL/HDL Ratio Men Women 1/2 Avg.Risk 1.0 1.5 Av g.Risk 3.6 3.2 2X Avg.Risk 6.2 5.0 3X Avg.Risk 8.0 6.1 LDL Cholesterol Calc 66 mg/dL (Normal) Range: 0-99 VLDL Cholesterol Tj 35 mg/dL (Normal) Range: 5-40 HDL Cholesterol 58 mg/dL (Normal) Comments: According to ATP-III Guidelines, HDL-C >59 mg/dL is considered anegative risk factor for CHD. Triglycerides 177 mg/dL (Abnormal) Range: 0-149 Cholesterol, Total 159 mg/dL (Normal) Range: 100-199 :21 CBC, PLATELETS & AUT DIFF Comments: PATIENT WAS FASTINGPERFORMED BY: Capablue70 [facility] [id number] Information: [id number] ([id number]) Immature Grans (Abs) 0.0 {x10E3/uL} (Normal) Range: 0.0-0.1 Immature Granulocytes 0 % (Normal) Baso (Absolute) 0.0 {x10E3/uL} (Normal) Range: 0.0-0.2 Eos (Absolute) 0.2 {x10E3/uL} (Normal) Range: 0.0-0.4 Monocytes(Absolute) 1.5 {x10E3/uL} (Abnormal) Range: 0.1-0.9 Lymphs (Absolute) 1.4 {x10E3/uL} (Normal) Range: 0.7-3.1 Neutrophils (Absolute) 8.3 {x10E3/uL} (Abnormal) Range: 1.4-7.0 Basos 0 % (Normal) Eos 2 % (Normal) Monocytes 13 % (Normal) Lymphs 12 % (Normal) Neutrophils 73 % (Normal) Platelets 328 {x10E3/uL} (Normal) Range: 150-379 RDW 14.1 % (Normal) Range: 12.3-15.4 MCHC 32.7 g/dL (Normal) Range: 31.5-35.7 MCH 29.7 pg (Normal) Range: 26.6-33.0 MCV 91 fL (Normal) Range: 79-97 Hematocrit 41.0 % (Normal) Range: 37.5-51.0 Hemoglobin 13.4 g/dL (Normal) Range: 12.6-17.7 RBC 4.51 {x10E6/uL} (Normal) Range: 4.14-5.80 WBC 11.5 {x10E3/uL} (Abnormal) Range: 3.4-10.8 :21 VITAMIN B-12 (CYANOCOBALAMIN) Comments: PATIENT WAS FASTINGPERFORMED BY: ALLISON [facility] SupplyJer[facility] Medical [id number] [facility] [id number] ([id number]) Vitamin B12 756 pg/mL (Normal) Range: 211-946 :21 Hemoglobin Glyclated (HGB A1C) Comments: PATIENT WAS FASTINGPERFORMED BY: ALLISON [facility] [address]CH[address] Phys[facility] Medical [id number] [facility] [id number] ([id number]) Hemoglobin A1c 6.1 % (Abnormal) Range: 4.8-5.6 Comments: . Pre-diabetes: 5.7 - 6.4 Diabetes: >6.4 Glycemic control for adults with diabetes: <7.0 :00 LIPID PANEL ([id number]) Comments: PATIENT WAS FASTINGPERFORMED BY: [facility] [id number] [facility] [id number] LDL/HDL Ratio 1.0 {ratio_units} (Normal) Range: 0.0-3.6 Comments: LDL/HDL Ratio Men Women 1/2 Avg.Risk 1.0 1.5 Av g.Risk 3.6 3.2 2X Avg.Risk 6.2 5.0 3X Avg.Risk 8.0 6.1 LDL Cholesterol Calc 59 mg/dL (Normal) Range: 0-99 VLDL Cholesterol Tj 31 mg/dL (Normal) Range: 5-40 HDL Cholesterol 60 mg/dL (Normal) Comments: According to ATP-III Guidelines, HDL-C >59 mg/dL is considered anegative risk factor for CHD. Triglycerides 155 mg/dL (Abnormal) Range: 0-149 Cholesterol, Total 150 mg/dL (Normal) Range: 100-199 :00 PSA (PROSTATE SPECIFIC Comments: PATIENT WAS FASTINGPERFORMED BY: [id number] [facility] [id number] ANTIGEN) (V76.44) Prostate Specific Ag, 0.5 ng/mL (Normal) Range: 0.0-4.0 Serum Comments: [employer] ECLIA methodology. .According to the [employer] [place] [employer], Serum PSA shoulddecrease and remain at undetectable levels after radicalprostatectomy. The AUA defines biochemical recurrence as an initialPSA value 0.2 ng/mL or greater followed by a subsequent confirmatoryPSA value 0.2 ng/mL or greater.Values obtained with d ifferent assay methods or kits cannot be usedinterchangeably. Results cannot be interpreted as absolute evidenceof the presence or absence of malignant disease. : CBC W/AUTO DIFF WBC Comments: PATIENT WAS FASTINGPERFORMED BY: [facility] [id number] [facility] [id number] Information: [id number]; apt. [birth year] ([id number]) Immature Grans (Abs) 0.0 {x10E3/uL} (Normal) Range: 0.0-0.1 Immature Granulocytes 0 % (Normal) Baso (Absolute) 0.0 {x10E3/uL} (Normal) Range: 0.0-0.2 Eos (Absolute) 0.2 {x10E3/uL} (Normal) Range: 0.0-0.4 Monocytes(Absolute) 1.2 {x10E3/uL} (Abnormal) Range: 0.1-0.9 Lymphs (Absolute) 1.2 {x10E3/uL} (Normal) Range: 0.7-3.1 Neutrophils (Absolute) 8.7 {x10E3/uL} (Abnormal) Range: 1.4-7.0 Basos 0 % (Normal) Eos 1 % (Normal) Monocytes 11 % (Normal) Lymphs 11 % (Normal) Neutrophils 77 % (Normal) Platelets 258 {x10E3/uL} (Normal) Range: 150-379 RDW 15.0 % (Normal) Range: 12.3-15.4 MCHC 32.7 g/dL (Normal) Range: 31.5-35.7 MCH 29.6 pg (Normal) Range: 26.6-33.0 MCV 91 fL (Normal) Range: 79-97 Hematocrit 39.8 % (Normal) Range: 37.5-51.0 Hemoglobin 13.0 g/dL (Normal) Range: 12.6-17.7 RBC 4.39 {x10E6/uL} (Normal) Range: 4.14-5.80 WBC 11.3 {x10E3/uL} (Abnormal) Range: 3.4-10.8 :00 VITAMIN B-12 (CYANOCOBALAMIN) Comments: PATIENT WAS FASTINGPERFORMED BY: ALLISON Semtron[employer] MicrosystemsCoJersey Shore University Medical CenterTwwmal9542 [facility] [id number] (97003) Vitamin B12 669 pg/mL (Normal) Range: 211-946 :00 METABOLIC PANEL, COMPREHENSIVE Comments: PATIENT WAS FASTINGPERFORMED BY: ALLISON LabCoJersey Shore University Medical CenterMfgcyf6660 [facility] [id number] (43049) ALT (SGPT) 17 [iU]/L (Normal) Range: 0-44 AST (SGOT) 21 [iU]/L (Normal) Range: 0-40 Alkaline Phosphatase, S 68 [iU]/L (Normal) Range: 39-117 Bilirubin, Total 0.5 mg/dL (Normal) Range: 0.0-1.2 A/G Ratio 2.0 (Normal) Range: 1.1-2.5 Globulin, Total 2.1 g/dL (Normal) Range: 1.5-4.5 Albumin, Serum 4.2 g/dL (Normal) Range: 3.6-4.8 Protein, Total, Serum 6.3 g/dL (Normal) Range: 6.0-8.5 Calcium, Serum 9.2 mg/dL (Normal) Range: 8.6-10.2 Carbon Dioxide, Total 24 mmol/L (Normal) Range: 18-29 Chloride, Serum 100 mmol/L (Normal) Range: 97-108 Potassium, Serum 4.1 mmol/L (Normal) Range: 3.5-5.2 Sodium, Serum 141 mmol/L (Normal) Range: 134-144 BUN/Creatinine Ratio 12 (Normal) Range: 10-22 eGFR If Africn Am 89 mL/min/1.73 (Normal) eGFR If NonAfricn Am 77 mL/min/1.73 (Normal) Creatinine, Serum 0.99 mg/dL (Normal) Range: 0.76-1.27 BUN 12 mg/dL (Normal) Range: 8-27 Glucose, Serum 133 mg/dL (Abnormal) Range: 65-99 5-Icu-285630:35 HgA1C , Office (73039) HgA1C , Office 6.1 % (Normal) Range: 4.6 - 7.1 :07 CBC With Differential/Platelet Comments: PATIENT WAS FASTINGPERFORMED BY: [facility] Yamyab2285 [facility] [id number] Information: [id number] Immature Grans (Abs) 0.0 {x10E3/uL} (Normal) Range: 0.0-0.1 Immature Granulocytes 0 % (Normal) Baso (Absolute) 0.1 {x10E3/uL} (Normal) Range: 0.0-0.2 Eos (Absolute) 0.2 {x10E3/uL} (Normal) Range: 0.0-0.4 Monocytes(Absolute) 0.8 {x10E3/uL} (Normal) Range: 0.1-0.9 Lymphs (Absolute) 1.5 {x10E3/uL} (Normal) Range: 0.7-3.1 Neutrophils (Absolute) 8.6 {x10E3/uL} (Abnormal) Range: 1.4-7.0 Basos 0 % (Normal) Eos 2 % (Normal) Monocytes 7 % (Normal) Lymphs 14 % (Normal) Neutrophils 77 % (Normal) Platelets 250 {x10E3/uL} (Normal) Range: 150-379 RDW 14.7 % (Normal) Range: 12.3-15.4 MCHC 32.8 g/dL (Normal) Range: 31.5-35.7 MCH 29.8 pg (Normal) Range: 26.6-33.0 MCV 91 fL (Normal) Range: 79-97 Hematocrit 39.0 % (Normal) Range: 37.5-51.0 Hemoglobin 12.8 g/dL (Normal) Range: 12.6-17.7 RBC 4.29 {x10E6/uL} (Normal) Range: 4.14-5.80 WBC 11.2 {x10E3/uL} (Abnormal) Range: 3.4-10.8 76-Tut-95706:07 Comp. Metabolic Panel (14) Comments: PATIENT WAS FASTINGPERFORMED BY: LabSouthwest Regional Rehabilitation Center6370 [facility] [id number] ALT (SGPT) 18 [iU]/L (Normal) Range: 0-44 AST (SGOT) 21 [iU]/L (Normal) Range: 0-40 Alkaline Phosphatase, S 69 [iU]/L (Normal) Range: 39-117 Bilirubin, Total 0.3 mg/dL (Normal) Range: 0.0-1.2 A/G Ratio 2.3 (Normal) Range: 1.1-2.5 Globulin, Total 1.8 g/dL (Normal) Range: 1.5-4.5 Albumin, Serum 4.1 g/dL (Normal) Range: 3.6-4.8 Protein, Total, Serum 5.9 g/dL (Abnormal) Range: 6.0-8.5 Calcium, Serum 9.0 mg/dL (Normal) Range: 8.6-10.2 Carbon Dioxide, Total 21 mmol/L (Normal) Range: 18-29 Chloride, Serum 103 mmol/L (Normal) Range: 97-108 Potassium, Serum 3.9 mmol/L (Normal) Range: 3.5-5.2 Sodium, Serum 141 mmol/L (Normal) Range: 134-144 BUN/Creatinine Ratio 13 (Normal) Range: 10-22 eGFR If Africn Am 73 mL/min/1.73 (Normal) eGFR If NonAfricn Am 63 mL/min/1.73 (Normal) Creatinine, Serum 1.17 mg/dL (Normal) Range: 0.76-1.27 BUN 15 mg/dL (Normal) Range: 8-27 Glucose, Serum 111 mg/dL (Abnormal) Range: 65-99 70-Fdf-29958:07 Lipid Panel With LDL/HDL Comments: PATIENT WAS FASTINGPERFORMED BY: Capablue70 [facility] [id number] Ratio LDL/HDL Ratio 0.9 {ratio_units} Range: 0.0-3.6 (Normal) Comments: LDL/HDL Ratio Men Women 1/2 Avg.Risk 1.0 1.5 Av g.Risk 3.6 3.2 2X Avg.Risk 6.2 5.0 3X Avg.Risk 8.0 6.1 LDL Cholesterol Calc 52 mg/dL (Normal) Range: 0-99 VLDL Cholesterol Tj 26 mg/dL (Normal) Range: 5-40 HDL Cholesterol 55 mg/dL (Normal) Comments: According to ATP-III Guidelines, HDL-C >59 mg/dL is considered anegative risk factor for CHD. Triglycerides 132 mg/dL (Normal) Range: 0-149 Cholesterol, Total 133 mg/dL (Normal) Range: 100-199 07-Dec-2014 Vitamin B12 885 pg/mL (Normal) Comments: PATIENT WAS FASTINGPERFORMED BY: 1Mind6370 [facility] [id number] 8:07 Range: 211-946 58-Eyg-11261:58 URINE VI CULTURE-IDENTIFICATN Comments: PATIENT NOT FASTINGPERFORMED BY: LabSouthwest Regional Rehabilitation Center6370 [facility] [id number] Information: [id number] (22243) Result 1 MUG (Normal) Comments: Mixed urogenital yafdx922 Colonies/mL . Urine Culture,Comprehensive Final report (Normal) 19-Uon-75614:53 Urinalysis, Office (34692) UA - LEUKOCYTE ESTERASE Negative (Normal) UA - NITRITE Negative (Normal) URINE UROBILINGN MERCY TIMED 2 mg/dL (Normal) Comments: 1.0 UA - PROTEIN 30 mg/dL (Normal) UA - PH 7.0 (Normal) UA - BLOOD Negative (Normal) UA - SPECIFIC GRAVITY 1.020 (Normal) UA - KETONES Negative mg/dL (Normal) UA - BILIRUBIN Negative (Normal) UA - GLUCOSE Negative (Normal) 14-Qpp-663154:51 URINE IV CULTURE-MERCY COL Comments: PATIENT NOT FASTINGPERFORMED BY: LabMiss[facility] Umqapi6092 [facility] [id number] Information: SRC:UR [id number] COUNT (74680) Antimicrobial MIHEAD (Normal) Comments: S = Susceptible; I = Intermediate; R = Resistant P = Positive; N = Negative MICS are expressed in micrograms per mL Antibiotic RSLT#1 RSLT#2 Susceptibility RSLT#3 RSLT#4Ciprofloxacin SLevofloxacin SNitrofurantoin SPenicillin STetracycline RVancomycin S Result 1 Enterococcus faecalis Comments: Greater than 100,000 colony forming units per mLNote: this isolate is vancomycin-susceptible.This information is provided for epidemiologic purposesonly: vancomycin is not among the antibiot icsrecommend (Abnormal) ed for therapy of urinary tract infectionscaused by Enterococcus.For Enterococcus species, cephalosporins, aminoglycosides (except forhigh-level resistance screening), clindamycin, and trimethoprim-sulf amethoxazole are not effective clinically. Fluoroquinolones areused primarily for treating urinary tract infections. (CLSI, [id number],2009) Urine Culture,Comprehensive Final report (Abnormal) 12-Oie-811757:19 Urinalysis, Office (13345) UA - LEUKOCYTE ESTERASE Small (Normal) UA - NITRITE Negative (Normal) URINE UROBILINGN MERCY TIMED 2 mg/dL (Normal) UA - PROTEIN Negative mg/dL (Normal) UA - PH 7.0 (Normal) UA - BLOOD Non Hemolyzed Trace (Normal) UA - SPECIFIC GRAVITY 1.020 (Normal) UA - KETONES Negative mg/dL (Normal) UA - BILIRUBIN Negative (Normal) UA - GLUCOSE Negative (Normal) :34 LIPID PANEL (10907) Comments: PATIENT WAS FASTINGPERFORMED BY: Capablue70 [facility] [id number] LDL/HDL Ratio 0.9 {ratio_units} (Normal) Range: 0.0-3.6 Comments: LDL/HDL Ratio Men Women 1/2 Avg.Risk 1.0 1.5 Av g.Risk 3.6 3.2 2X Avg.Risk 6.2 5.0 3X Avg.Risk 8.0 6.1 LDL Cholesterol Calc 48 mg/dL (Normal) Range: 0-99 VLDL Cholesterol Tj 27 mg/dL (Normal) Range: 5-40 HDL Cholesterol 52 mg/dL (Normal) Comments: According to ATP-III Guidelines, HDL-C >59 mg/dL is considered anegative risk factor for CHD. Triglycerides 133 mg/dL (Normal) Range: 0-149 Cholesterol, Total 127 mg/dL (Normal) Range: 100-199 :34 METABOLIC PANEL, COMPREHENSIVE Comments: PATIENT WAS FASTINGPERFORMED BY: Notable Limitedlin6370 [facility] [id number] (86640) ALT (SGPT) 14 [iU]/L (Normal) Range: 0-44 AST (SGOT) 17 [iU]/L (Normal) Range: 0-40 Alkaline Phosphatase, S 57 [iU]/L (Normal) Range: 39-117 Bilirubin, Total 0.5 mg/dL (Normal) Range: 0.0-1.2 A/G Ratio 2.0 (Normal) Range: 1.1-2.5 Globulin, Total 2.1 g/dL (Normal) Range: 1.5-4.5 Albumin, Serum 4.3 g/dL (Normal) Range: 3.6-4.8 Protein, Total, Serum 6.4 g/dL (Normal) Range: 6.0-8.5 Calcium, Serum 9.3 mg/dL (Normal) Range: 8.6-10.2 Carbon Dioxide, Total 22 mmol/L (Normal) Range: 18-29 Chloride, Serum 105 mmol/L (Normal) Range: 97-108 Potassium, Serum 3.9 mmol/L (Normal) Range: 3.5-5.2 Sodium, Serum 144 mmol/L (Normal) Range: 134-144 BUN/Creatinine Ratio 13 (Normal) Range: 10-22 eGFR If Africn Am 72 mL/min/1.73 (Normal) eGFR If NonAfricn Am 62 mL/min/1.73 (Normal) Creatinine, Serum 1.19 mg/dL (Normal) Range: 0.76-1.27 BUN 16 mg/dL (Normal) Range: 8-27 Glucose, Serum 107 mg/dL (Abnormal) Range: 65-99 09-Tgq-96626:34 CBC, PLATELETS & AUT DIFF Comments: PATIENT WAS FASTINGPERFORMED BY: [facility] Teqrax4883 [facility] [id number] Information: [id number] (28721) Immature Grans (Abs) 0.0 {x10E3/uL} (Normal) Range: 0.0-0.1 Immature Granulocytes 0 % (Normal) Baso (Absolute) 0.0 {x10E3/uL} (Normal) Range: 0.0-0.2 Eos (Absolute) 0.2 {x10E3/uL} (Normal) Range: 0.0-0.4 Monocytes(Absolute) 1.1 {x10E3/uL} (Abnormal) Range: 0.1-0.9 Lymphs (Absolute) 1.7 {x10E3/uL} (Normal) Range: 0.7-3.1 Neutrophils (Absolute) 6.9 {x10E3/uL} (Normal) Range: 1.4-7.0 Basos 0 % (Normal) Eos 2 % (Normal) Monocytes 11 % (Normal) Lymphs 17 % (Normal) Neutrophils 70 % (Normal) Platelets 273 {x10E3/uL} (Normal) Range: 150-379 RDW 14.4 % (Normal) Range: 12.3-15.4 MCHC 32.8 g/dL (Normal) Range: 31.5-35.7 MCH 29.7 pg (Normal) Range: 26.6-33.0 MCV 91 fL (Normal) Range: 79-97 Hematocrit 41.1 % (Normal) Range: 37.5-51.0 Hemoglobin 13.5 g/dL (Normal) Range: 12.6-17.7 RBC 4.54 {x10E6/uL} (Normal) Range: 4.14-5.80 WBC 10.1 {x10E3/uL} (Normal) Range: 3.4-10.8 :34 VITAMIN B-12 (CYANOCOBALAMIN) Comments: PATIENT WAS FASTINGPERFORMED BY: [facility]6370 [facility] [id number] (70123) Vitamin B12 687 pg/mL (Normal) Range: 211-946 :22 HgA1C , Office (89429) HgA1C , Office 6.0 % (Normal) Range: 4.6 - 7.1 :22 Blood Glucose , Office (64692) Blood Glucose , Office 203 (Normal) 45-Mhd-047137:37 HgA1C , Office (47547) HgA1C , Office 6.2 % (Normal) Range: 4.6 - 7.1 :09 CBCD ALC 1.42 {X10_3/ul} (Normal) Range: 0.83-4.51 ANC 6.3 {X10_3/uL} (Normal) Range: 2.0-7.7 IG% 0.300 % (Normal) Range: 0.0-0.9 Comments: IG% - Immature Granulocytes (promyelocytes, myelocytes andmetamyelocytes) > 1% indicates that a LEFT SHIFT is Present. B% 0.3 % (Normal) Range: 0-1 E% 2.0 % (Normal) Range: 0-5 M% 13.6 % (Abnormal) Range: 0-10 L% 15.5 % (Abnormal) Range: 19-41 N% 68.3 % (Normal) Range: 47-70 MPV 9.8 fL (Normal) Range: 6.2-12.0 PLT 196 K/mm3 (Normal) Range: 150-450 RDWSD 47.3 fL (Abnormal) Range: 35.1-43.9 RDWCV 13.7 % (Normal) Range: 11.6-14.6 MCHC 33.0 {g/gl} (Normal) Range: 32-36 MCH 31.1 pg (Normal) Range: 27.0-32.0 MCV 94.3 fL (Abnormal) Range: 80-94 HCT 41.5 % (Normal) Range: 40-54 HGB 13.7 g/dL (Normal) Range: 13.0-16.5 RBC 4.40 {M/mm3} (Abnormal) Range: 4.6-6.2 WBC 9.2 K/mm3 (Normal) Range: 4.4-11.0 :09 CMP GAP 5 (Normal) Range: 5-15 CO2 29.0 mmol/L (Normal) Range: 21.0-32.0 CL 104 mmol/L (Normal) Range: 98-107 K 3.7 mmol/L (Normal) Range: 3.5-5.1 NA 138 mmol/L (Normal) Range: 136-145 BIT 0.50 mg/dL (Normal) Range: 0.00-4.00 ALT 19 U/L (Normal) Range: 12-78 ALK 75 U/L (Normal) Range: 50-136 AST 16 U/L (Normal) Range: 15-37 CA 9.1 mg/dL (Normal) Range: 8.5-10.1 AG 1.0 {RATIO} (Normal) Range: 0.9-2.4 GLOB 3.5 g/dL (Normal) Range: 2.7-4.2 ALB 3.5 g/dL (Normal) Range: 3.4-5.0 TPROT 7.0 g/dL (Normal) Range: 6.4-8.2 BC 11.7 {RATIO} (Normal) Range: 10-20 ECRCL 60.83 ml/min (Normal) GFRAA 78 mL/min (Normal) GFR 64 mL/min (Normal) CREAT 1.2 mg/dL (Normal) Range: 0.8-1.3 BUN 14 mg/dL (Normal) Range: 7-18 GLU 122 mg/dL (Abnormal) Range: 70-110 Comments: Fasting Glucose result from 110 to <126 mg/dLsuggests IMPAIRED HOMEOSTASIS per A.D.A. criteria. :09 LIPID VLDL 23 mg/dL (Normal) Range: 5-40 LDL 37 mg/dL (Normal) Range: 0-130 HDL 57 mg/dL (Normal) Comments: Reference RangeHDL <40 mg/dL Low HDL CholesterolHDL >or= 60 mg/dL High HDL Cholesterol TRIG 115 mg/dL (Normal) Range: 0-199 Comments: Serum Triglycerides Reference IntervalNormal <150 mg/dLBorderline high 150 - 199 mg/dLHigh 200 - 499 mg/ dLVery High > or = 500 mg/dL CHOL 117 mg/dL (Normal) Comments: <200 mg/dL Cvdqyrdta795-579 mg/dL Borderline>240 mg/dL High Risk :09 MIACRE tMICROCREAT 29.7 {mg/g_CRE} (Normal) MIALB 38.7 mg/L (Normal) CREU 130.2 mg/dL (Normal) 80-Bpr-320883:3 COLBX (Normal) Comments: Patient: JV DURHAM JR : 1945 (68/M)Acct Num: [id number] [facility] Num: [id number] Loc: LABSPECSpecimen: [id number] Received: 01/10/14 - 1534Spec Typ e: COLON BXC 4 [facility] Nabeel Garza[address] [place] [address] [id number] Ambulatory [place] [place], [place] [id number] ID Blk Pcs Siva Lev + Proce dure ComCecum, NOS 3PTH PROCEDURES COMPLETEPROCEDURES: SUIV (01/11/14- 1144)TISSUESTISSUES:GROSS DESCRIPTIONReceived is one container labeled with the patient name and designated biopsycecal polyp . The specimen consists of two irregular fragments of light tansoft tissue that in aggregate measure 0.5 x 0.3 x 0.1 cm. The specimen istotally submitted in one cassette. / SJ:inocente 01/11/14 TC:4CPT: 88 305HEADEROPERATION: Colonoscopy with biopsyPRE-OPERATIVE DIAGNOSIS: Screening / polypTISSUE SUBMITTED: Biopsy polyp cecum, rule out adenomaMICROSCOPIC DIAGNOSISPolyp cecum, biopsy:Fragments of colonic m ucosa, no pathologic diagnosis.Negative for adenomatous changes.SJ:inocente 01/12/14Signed Silvio Bryanin 01/12/14<signature on file> :55 HgA1C , Office (01111) HgA1C , Office 6.2 % (Normal) Range: 4.6 - 7.1 :55 Blood Glucose , Office (23808) Blood Glucose , Office 141 (Normal) :47 Potassium Serum (80146) Comments: 1 week; PATIENT NOT FASTINGPERFORMED BY: LabCoJersey Shore University Medical CenterYzgfdh8748 [facility] [id number] Information: [id number]; will review at appt today...11/03/13 Potassium, Serum 4.0 mmol/L (Normal) Range: 3.5-5.2 :06 B12 773 pg/mL (Normal) Range: 211-911 :06 CBCD ANC 6.1 {X10_3/uL} (Normal) Range: 2.0-7.7 IG% 0.300 % (Normal) Range: 0.0-0.9 Comments: IG% - Immature Granulocytes (promyelocytes, myelocytes andmetamyelocytes) > 1% indicates that a LEFT SHIFT is Present. B% 0.3 % (Normal) Range: 0-1 E% 2.1 % (Normal) Range: 0-5 M% 13.2 % (Abnormal) Range: 0-10 L% 14.9 % (Abnormal) Range: 19-41 N% 69.2 % (Normal) Range: 47-70 MPV 10.4 fL (Normal) Range: 6.2-12.0 PLT 230 K/mm3 (Normal) Range: 150-450 RDWSD 46.0 fL (Abnormal) Range: 35.1-43.9 RDWCV 14.0 % (Normal) Range: 11.6-14.6 MCHC 33.5 {g/gl} (Normal) Range: 32-36 MCH 30.7 pg (Normal) Range: 27.0-32.0 MCV 91.7 fL (Normal) Range: 80-94 HCT 38.8 % (Abnormal) Range: 40-54 HGB 13.0 g/dL (Normal) Range: 13.0-16.5 RBC 4.23 {M/mm3} (Abnormal) Range: 4.6-6.2 WBC 8.9 K/mm3 (Normal) Range: 4.4-11.0 :06 CMP GAP 8 (Normal) Range: 5-15 CO2 23.0 mmol/L (Normal) Range: 21.0-32.0 CL 108 mmol/L (Abnormal) Range: 98-107 K 3.4 mmol/L (Abnormal) Range: 3.5-5.1 NA 139 mmol/L (Normal) Range: 136-145 BIT 0.30 mg/dL (Normal) Range: 0.00-1.00 ALT 21 U/L (Normal) Range: 12-78 ALK 64 U/L (Normal) Range: 45-117 AST 18 U/L (Normal) Range: 15-37 CA 9.0 mg/dL (Normal) Range: 8.5-10.1 AG 1.3 {RATIO} (Normal) Range: 0.9-2.4 GLOB 3.0 g/dL (Normal) Range: 2.7-4.2 ALB 3.8 g/dL (Normal) Range: 3.4-5.0 TPROT 6.8 g/dL (Normal) Range: 6.4-8.2 BC 13.6 {RATIO} (Normal) Range: 10-20 GFRAA 86 mL/min (Normal) GFR 71 mL/min (Normal) BUN 15 mg/dL (Normal) Range: 7-18 CREAT 1.1 mg/dL (Normal) Range: 0.8-1.3 GLU 115 mg/dL (Abnormal) Range: 70-110 Comments: Fasting Glucose result from 110 to <126 mg/dLsuggests IMPAIRED HOMEOSTASIS per A.D.A. criteria. :06 LIPID VLDL 24 mg/dL (Normal) Range: 5-40 CHOL 136 mg/dL (Normal) Comments: <200 mg/dL Aibapwnij665-390 mg/dL Borderline>240 mg/dL High Risk HDL 63 mg/dL (Normal) Comments: Reference RangeHDL <40 mg/dL Low HDL CholesterolHDL >or= 60 mg/dL High HDL Cholesterol LDL 49 mg/dL (Normal) Range: 0-130 TRIG 122 mg/dL (Normal) Range: 0-199 Comments: Serum Triglycerides Reference IntervalNormal <150 mg/dLBorderline high 150 - 199 mg/dLHigh 200 - 499 mg/ dLVery High > or = 500 mg/dL :06 PSA 0.51 ng/mL (Normal) Range: 0.00-4.00 Comments: This test was performed using the TPSA assay method for [employer] chemistry system. Values obtained with differentassay methods cannot be used interchangably.When changing PSA assays in the course of monitoring apatient, additional sequential testing should be carriedout to confirm baseline values. :33 B12 974 pg/mL (Abnormal) Range: 211-911 :33 CBCD ANC 5.9 {X10_3/uL} (Normal) Range: 2.0-7.7 IG% 0.200 % (Normal) Range: 0.0-0.9 Comments: IG% - Immature Granulocytes (promyelocytes, myelocytes andmetamyelocytes) > 1% indicates that a LEFT SHIFT is Present. B% 0.3 % (Normal) Range: 0-1 E% 1.8 % (Normal) Range: 0-5 M% 12.0 % (Abnormal) Range: 0-10 L% 17.8 % (Abnormal) Range: 19-41 N% 67.9 % (Normal) Range: 47-70 MPV 10.3 fL (Normal) Range: 6.2-12.0 PLT 269 K/mm3 (Normal) Range: 150-450 RDWSD 46.0 fL (Abnormal) Range: 35.1-43.9 RDWCV 13.8 % (Normal) Range: 11.6-14.6 MCHC 32.6 {g/gl} (Normal) Range: 32-36 MCH 30.2 pg (Normal) Range: 27.0-32.0 MCV 92.4 fL (Normal) Range: 80-94 HCT 38.9 % (Abnormal) Range: 40-54 HGB 12.7 g/dL (Abnormal) Range: 13.0-16.5 RBC 4.21 {M/mm3} (Abnormal) Range: 4.6-6.2 WBC 8.7 K/mm3 (Normal) Range: 4.4-11.0 :33 CMP GAP 6 (Normal) Range: 5-15 CO2 25.0 mmol/L (Normal) Range: 21.0-32.0 CL 110 mmol/L (Abnormal) Range: 98-107 K 3.8 mmol/L (Normal) Range: 3.5-5.1 NA 141 mmol/L (Normal) Range: 136-145 BIT 0.50 mg/dL (Normal) Range: 0.00-1.00 ALT 24 U/L (Normal) Range: 12-78 ALK 77 U/L (Normal) Range: 50-136 AST 17 U/L (Normal) Range: 15-37 CA 8.4 mg/dL (Abnormal) Range: 8.5-10.1 AG 1.2 {RATIO} (Normal) Range: 0.9-2.4 GLOB 3.3 g/dL (Normal) Range: 2.7-4.2 ALB 3.9 g/dL (Normal) Range: 3.4-5.0 TPROT 7.2 g/dL (Normal) Range: 6.4-8.2 BC 15.0 {RATIO} (Normal) Range: 10-20 GFRAA 78 mL/min (Normal) GFR 64 mL/min (Normal) CREAT 1.2 mg/dL (Normal) Range: 0.8-1.3 BUN 18 mg/dL (Normal) Range: 7-18 GLU 109 mg/dL (Normal) Range: 70-110 :33 LIPID LDL 44 mg/dL (Normal) Range: 0-130 VLDL 22 mg/dL (Normal) Range: 5-40 HDL 48 mg/dL (Normal) Comments: Reference RangeHDL <40 mg/dL Low HDL CholesterolHDL >or= 60 mg/dL High HDL Cholesterol TRIG 108 mg/dL (Normal) Range: 0-199 Comments: Serum Triglycerides Reference IntervalNormal <150 mg/dLBorderline high 150 - 199 mg/dLHigh 200 - 499 mg/ dLVery High > or = 500 mg/dL CHOL 114 mg/dL (Normal) Comments: <200 mg/dL Mjmprqvfd955-882 mg/dL Borderline>240 mg/dL High Risk 17-Jun-20139:33 MIACRE tMICROCREAT 22.0 {mg/g_CRE} (Normal) CREU 198.2 mg/dL (Normal) MIALB 43.7 mg/L (Normal) 8-Ebb-395612:11 VI CULTURE-OTHER (21161) Comments: PATIENT NOT FASTINGPERFORMED BY: LabMimesis [facility] Rgmzaz6673 [facility] [id number] Information: SRC:THRT [id number] Result 1 RRF (Normal) Comments: Routine respiratory magan Upper Respiratory Culture Final report (Normal) 7-Mcc-351398:11 Rapid Strep Test, Office (09434) Rapid Strep Test, Office Negative (Normal) 0-Bhb-030641:25 Microscopic Examination Comments: PATIENT NOT FASTINGPERFORMED BY: [facility] Vsevxk5586 [facility] [id number] Bacteria Few (Normal) Mucus Threads Present (Normal) Epithelial Cells (non renal) 0-10 {/hpf} (Normal) Range: 0 - 10 RBC 0-3 {/hpf} (Normal) Range: 0 - 3 WBC 0-5 {/hpf} (Normal) Range: 0 - 5 7-Ije-859478:25 CBC WITH MANUAL DIFF Comments: PATIENT NOT FASTINGPERFORMED BY: [facility] Rgxlpn1796 [facility] [id number] Information: [id number] (28137) Immature Grans (Abs) 0.0 {x10E3/uL} (Normal) Range: 0.0-0.1 Immature Granulocytes 0 % (Normal) Range: 0-2 Baso (Absolute) 0.0 {x10E3/uL} (Normal) Range: 0.0-0.2 Eos (Absolute) 0.2 {x10E3/uL} (Normal) Range: 0.0-0.4 Monocytes(Absolute) 1.2 {x10E3/uL} (Abnormal) Range: 0.1-1.0 Lymphs (Absolute) 1.9 {x10E3/uL} (Normal) Range: 0.7-4.5 Neutrophils (Absolute) 8.2 {x10E3/uL} (Abnormal) Range: 1.8-7.8 Basos 0 % (Normal) Range: 0-3 Eos 2 % (Normal) Range: 0-7 Monocytes 10 % (Normal) Range: 4-13 Lymphs 17 % (Normal) Range: 14-46 Neutrophils 71 % (Normal) Range: 40-74 Platelets 258 {x10E3/uL} (Normal) Range: 140-415 RDW 14.2 % (Normal) Range: 12.3-15.4 MCHC 33.1 g/dL (Normal) Range: 31.5-35.7 MCH 30.7 pg (Normal) Range: 26.6-33.0 MCV 93 fL (Normal) Range: 79-97 Hematocrit 39.6 % (Normal) Range: 37.5-51.0 Hemoglobin 13.1 g/dL (Normal) Range: 12.6-17.7 RBC 4.27 {x10E6/uL} (Normal) Range: 4.14-5.80 WBC 11.6 {x10E3/uL} (Abnormal) Range: 4.0-10.5 [id number]:25 METABOLIC PANEL, COMPREHENSIVE Comments: PATIENT NOT FASTINGPERFORMED BY: [facility] [id number] [facility] [id number] ([id number]) ALT (SGPT) 12 [iU]/L (Normal) Range: 0-44 AST (SGOT) 15 [iU]/L (Normal) Range: 0-40 Alkaline Phosphatase, S 64 [iU]/L (Normal) Range: 25-160 Bilirubin, Total 0.4 mg/dL (Normal) Range: 0.0-1.2 A/G Ratio 2.0 (Normal) Range: 1.1-2.5 Globulin, Total 2.3 g/dL (Normal) Range: 1.5-4.5 Albumin, Serum 4.5 g/dL (Normal) Range: 3.6-4.8 Protein, Total, Serum 6.8 g/dL (Normal) Range: 6.0-8.5 Calcium, Serum 9.4 mg/dL (Normal) Range: 8.6-10.2 Carbon Dioxide, Total 21 mmol/L (Normal) Range: 20-32 Chloride, Serum 104 mmol/L (Normal) Range: 97-108 Potassium, Serum 3.9 mmol/L (Normal) Range: 3.5-5.2 Sodium, Serum 141 mmol/L (Normal) Range: 134-144 BUN/Creatinine Ratio 12 (Normal) Range: 10-22 eGFR If Africn Am 75 mL/min/1.73 (Normal) eGFR If NonAfricn Am 65 mL/min/1.73 (Normal) Creatinine, Serum 1.17 mg/dL (Normal) Range: 0.76-1.27 BUN 14 mg/dL (Normal) Range: 8-27 Glucose, Serum 89 mg/dL (Normal) Range: 65-99 :25 URINALYSIS, W/ MICRO ([id number]) Comments: PATIENT NOT FASTINGPERFORMED BY: [facility] [id number] [facility] [id number] Microscopic Examination See below: (Normal) Microscopic Examination MICRON (Normal) Comments: Microscopic follows if indicated. Nitrite, Urine Negative (Normal) Urobilinogen,Semi-Qn 1.0 mg/dL (Normal) Range: 0.0-1.9 Bilirubin Negative (Normal) Occult Blood Negative (Normal) Ketones Negative (Normal) Glucose Negative (Normal) Protein Trace (Normal) WBC Esterase Negative (Normal) Appearance Clear (Normal) Urine-Color Yellow (Normal) pH 7.5 (Normal) Range: 5.0-7.5 Specific [place] 1.019 (Normal) Range: 1.005-1.030 :45 HgA1C , Office ([id number]) HgA1C , Office 5.8 % (Normal) Range: 4.6 - 7.1 :45 Blood Glucose , Office ([id number]) Blood Glucose , Office 100 (Normal) :17 PSA 0.53 ng/mL (Normal) Range: 0.00-4.00 :41 HgA1C , Office (60683) HgA1C , Office 5.8 % (Normal) Range: 4.6 - 7.1 :14 HgA1C , Office (03577) HgA1C , Office 6.0 % (Normal) Range: 4.6 - 7.1 :14 Blood Glucose , Office (25129) Blood Glucose , Office 111 (Normal) :18 CHEST WITHOUT CONTRAST Radiology Report See Note (Normal) Comments: PROCEDURE: CT CHEST WITHOUT CONTRAST REASON FOR EXAM: Male, 65 years old. Lung nodule follow-up TECHNIQUE: High resolution transaxial imaging was performed without theadministration of intravenou s contrast material. COMPARISON: None. FINDINGS:Emphysematous changes are seen throughout the lung shah bilaterally. Small noncalcified nodules previously described in left apex areunchangedin size since the prior exam. 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 An extension of this mass has fatty tissue within measures 7.3 x 3.0 cmimage 8 07/2101. Normal heart and pericardium. Normal mediastinum. Normal hilar regions. Normal unenhanced pulmonaryarteries. There is atherosclerotic calcification of the aortic arch withtortuosity and elong ation of the aortic arch and descending thoracicaorta.Extensive calcification is seen over the coronary arteries. There are multi-level degenerative changes of the thoracic spine. The right adrenal glan d shows enlargement measuring 4.4 x 2.0 cm. Igjva953/1002. There is limited visualization of the liver, spleen, pancreas, leftadrenalgland, and abdominal aorta without a demonstrated abnormality. Calcu li are seen over the projection of the left kidney. IMPRESSION:Multiple stable nodules throughout lung shah bilaterally. Emphysematous changes bilateral lung shah. No change in soft tissue mass as d escribed previously in the rightparavertebral region. Enlarged right adrenal essentially unchanged. Left nephrolithiasis. 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 Minimal de generative changes throughout the dorsal spine. To consult with a radiologist regarding this report, please call our [id number] line @ Dictated on 07/17/11 0824 by Joo Rodriguez MDscribed on 07/18/11 0708 by ITS IMPORTSign by Aamir Rodriguez MD on 07/18/11708 Sign by: Aamir Rodriguez MD 05-Ate-043962:38 HgA1C , Office (22332) HgA1C , Office 5.8 % (Normal) Range: 4.6 - 7.1 :38 Blood Glucose , Office (25587) Blood Glucose , Office 122 (Normal) :54 CBCD,SMEAR DIFF RED CELL MORPH SeeNote {NORMAL} (Normal) Comments: Result: NORM C+C PLT EST SeeNote (Normal) Comments: Result: ADEQUATE MONOCYTE 1 % (Normal) Range: 0-10 LYMPH 21 % (Normal) Range: 19-41 SEGS 78 % (Abnormal) Range: 47-70 CELLS COUNTED 100 (Normal) ABSOLUTE NEUT 7.2 3/uL (Normal) Range: 2.0-7.7 PLT 217 K/mm3 (Normal) Range: 150-450 RDW 13.9 % (Normal) Range: 11.6-14.6 MCHC 33.6 g/dL (Normal) Range: 32-36 MCH 31.6 pg (Normal) Range: 27.0-32.0 MCV 94.1 fL (Abnormal) Range: 80-94 HCT 38.2 % (Abnormal) Range: 40-54 HGB 12.8 g/dL (Abnormal) Range: 14.0-18.0 RBC 4.06 {M/mm3} (Abnormal) Range: 4.6-6.2 WBC 9.7 K/mm3 (Normal) Range: 4.4-11.0 :54 COMP METABOLIC Comments: appt 01/29/11 GAP 9 (Normal) Range: 5-15 CO2 24.0 mmol/L (Normal) Range: 21.0-32.0 CL 105 mmol/L (Normal) Range: 98-107 K 3.5 mmol/L (Normal) Range: 3.5-5.1 NA 138 mmol/L (Normal) Range: 136-145 T BILI 0.40 mg/dL (Normal) Range: 0.00-1.00 ALT 16 U/L (Normal) Range: 12-78 ALK P 58 U/L (Normal) Range: 50-136 AST 8 U/L (Abnormal) Range: 15-37 CA 8.9 mg/dL (Normal) Range: 8.5-10.1 A/G 1.2 {RATIO} (Normal) Range: 0.9-2.4 GLOB 3.3 g/dL (Normal) Range: 2.7-4.2 ALB 4.0 g/dL (Normal) Range: 3.4-5.0 T PROT 7.3 g/dL (Normal) Range: 6.4-8.2 BUN/CRE 12.5 {RATIO} (Normal) Range: 10-20 EST GFR - AA 79 mL/min (Normal) EST GFR 65 mL/min (Normal) CREAT,SERUM 1.2 mg/dL (Normal) Range: 0.8-1.3 BUN 15 mg/dL (Normal) Range: 7-18 GLU 112 mg/dL (Abnormal) Range: 70-110 Comments: Fasting Glucose result from 110 to <126 mg/dL suggests IMPAIRED HOMEOSTASIS per A.D.A. criteria. :54 D BILI 0.14 mg/dL (Normal) Range: 0.00-0.30 :54 LIPID LDL 70 mg/dL (Normal) Range: 0-130 VLDL 17 mg/dL (Normal) Range: 5-40 HDL 33 mg/dL (Abnormal) Comments: Reference Range HDL <40 mg/dL Low HDL Cholesterol HDL >or= 60 mg/dL High HDL Cholesterol CHOL 120 mg/dL (Normal) Comments: <200 mg/dL Desirable 200-240 mg/dL Borderline >240 mg/dL High Risk TRIG 87 mg/dL (Normal) Comments: Serum Triglycerides Reference Interval Normal <150 mg/dL Borderline high 150 - 199 mg/dL High 200 - 499 mg/dL Very High > or = 500 mg/dL :54 MICROALB:CRE UR MALB:CREAT 91.1 {mg/g_CRE} (Abnormal) MICROALBUMIN,UR 185.0 mg/L (Normal) UR CREAT 203.0 mg/dL (Normal) :54 PSA, SCREEN 1.1 ng/mL (Normal) Range: 0.0-4.0 :54 TSH 1.83 {uIU/mL} (Normal) Range: 0.358-3.74 :54 VITAMIN B12 888 pg/mL (Normal) Range: 254-1320 Comments: There is a low frequency possibility that high titers ofintrinsic blocking antibodies may not be completely inactivated during the reaction pretreatment stepof this testing method. If test results are i n conflictwith the clinical diagnosis, patient should be testedfor the presence of intrinsic factor blocking antibodies. :02 HgA1C , Office (17914) HgA1C , Office 5.9 % (Normal) Range: 4.6 - 7.1 :53 CHEST WITHOUT CONTRAST Radiology Report See Note (Normal) Comments: CLINICAL:This is a 64-year-old male patient with history of follow-up forpulmonarynodules. CT CHEST WITHOUT CONTRAST TECHNIQUE:High resolution transaxial imaging was performed without theadministrationo f intravenous contrast material. Multiplanar coronal and sagittal imageswere reformatted. COMPARISON:Comparison is made with prior examination dated October 20, 2009. FINDINGS: The trachea and visualized bro nchi are normal. Scattered bilateral pulmonary nodules are once again seen. No newnodulardensities present. There is a fatty density seen in the medial aspect ofthe right hemithorax against the thorac ic vertebrae. This is unchangedaswell. There is no demonstrated pleural abnormality. Normal heart and pericardium. Normal mediastinum. Normal hilar regions. Normal unenhanced pulmonary arteries. The re is atheroscleroticcalcification of the aortic arch with tortuosity. There are degenerative changes of thoracic spine. The right-sidedadrenalmass is unchanged. IMPRESSION:There has been essentially n o change since prior study. A 6 month followup examination is suggested. Dictated on 07/25/10 1104 by Sabrina Cansecoscribed on 07/25/10 1606 by ITS IMPORTSign by Navdeep Canseco on 07/25 1607 Sign by: Navdeep Canseco :03 BMP CL 105 mmol/L (Normal) Range: 98-107 CO2 25.0 mmol/L (Normal) Range: 21.0-32.0 GAP 11 (Normal) Range: 5-15 BUN/CRE 9.2 {RATIO} (Abnormal) Range: 10-20 CA 9.1 mg/dL (Normal) Range: 8.5-10.1 EST GFR - AA 72 mL/min (Normal) K 4.1 mmol/L (Normal) Range: 3.5-5.1 NA 141 mmol/L (Normal) Range: 136-145 CREAT,SERUM 1.3 mg/dL (Normal) Range: 0.8-1.3 EST GFR 59 mL/min (Abnormal) BUN 12 mg/dL (Normal) Range: 7-18 GLU 122 mg/dL (Abnormal) Range: 70-110 Comments: Fasting Glucose result from 110 to <126 mg/dL suggests IMPAIRED HOMEOSTASIS per A.D.A. criteria. 49-Fvq-862533:09 HgA1C , Office (24156) HgA1C , Office 6.0 % (Normal) Range: 4.6 - 7.1 96-Qub-077248:09 Blood Glucose , Office (66593) Blood Glucose , Office 120 (Normal) 96-Cqf-447433:05 VI CULTURE-OTHER (17803) Comments: PATIENT NOT FASTINGPERFORMED BY: [facility] [id number] Information: SRC:THRGina [id number] Result 1 RRF (Normal) Comments: Routine respiratory magan Upper Respiratory Culture Final report (Normal) 78-Ffr-14535:30 Rapid Strep Test, Office (46403) Rapid Strep Test, Office Negative (Normal) 73-Luf-871053:04 HgA1C , Office (82363) HgA1C , Office 6.2 % (Normal) Range: 4.6 - 7.1 95-Ugs-178422:04 Blood Glucose , Office (77105) Blood Glucose , Office 137 (Normal) 2-Uxd-032330:45 CHEST WITHOUT CONTRAST Radiology Report See Note (Normal) Comments: Exam Number: [id number] CT SCAN OF THE THORAX Multiple axial tomographic images were obtained from the thoracicinlet down to the adrenal glands without intravenous contrastadministration. Coronal and sa gittal reconstructions were obtained aswell. HISTORYThis is a 64-year-old male patient with history of followup for 6-cmnoncalcified nodule in the left pulmonary apex. FINDINGSThe previously seen sub cm nodules scattered throughout lungs, somewith calcification and some without, are unchanged. These most likelyrepresent sequelae of old granulomatous disease. No new mass lesionis seen. No significan t hilar or mediastinal lymphadenopathy ispresent. The axillary regions are unremarkable. The ascending and descending thoracic aortas show evidence ofatherosclerotic changes. No significant pleural ef fusion is seen.Once again, there is evidence of a soft tissue and fatty density inthe right paraspinal space inferiorly. This is unchanged in size andappearance. Once again, there is also evidence of a 3.3 cm x 3.6 cmright adrenal soft tissue mass. Fatty density is seen within it.This is suggestive of an adrenal adenoma. This is unchanged. IMPRESSIONStable pulmonary nodules. Enlargement of the ri ght adrenal gland aswell as the right paravertebral soft tissue and fatty density isunchanged as well. A followup CT scan of the thorax in 6 months issuggested for further evaluation. Reported By: NAVDEEP CANSECO 8-Qex-356748:09 PSA (PROSTATE SPECIFIC Comments: PATIENT WAS FASTINGPERFORMED BY: [id number] [place] [id number] ANTIGEN) (V76.44) Prostate Specific Ag, 0.6 ng/mL (Normal) Range: 0.0-4.0 Serum Comments: Usbek & RicaIA methodology..According to the [place] [employer], Serum PSA shoulddecrease and remain at undetectable levels after radicalprostatectomy. The AUA defines biochemical recurrence a s an initialPSA value 0.2 ng/mL or greater followed by a subsequent confirmatoryPSA value 0.2 ng/mL or greater.Values obtained with different assay methods or kits cannot be usedinterchangeably. Results cannot be interpreted as absolute evidenceof the presence or absence of malignant disease. 3-Hzc-743375:09 CBC WITH MANUAL DIFF Comments: PATIENT WAS FASTINGPERFORMED BY: [id number] [employer] [place] [id number] Information: [id number] (38596) Baso (Absolute) 0.1 {x10E3/uL} (Normal) Range: 0.0-0.2 Eos (Absolute) 0.2 {x10E3/uL} (Normal) Range: 0.0-0.4 Immature Grans (Abs) 0.0 {x10E3/uL} (Normal) Range: 0.0-0.1 Immature Granulocytes 0 % (Normal) Range: 0-1 Lymphs (Absolute) 1.6 {x10E3/uL} (Normal) Range: 0.7-4.5 Monocytes(Absolute) 1.2 {x10E3/uL} (Abnormal) Range: 0.1-1.0 Neutrophils (Absolute) 6.4 {x10E3/uL} (Normal) Range: 1.8-7.8 Basos 1 % (Normal) Range: 0-3 Eos 2 % (Normal) Range: 0-7 Monocytes 13 % (Normal) Range: 4-13 Lymphs 17 % (Normal) Range: 14-46 Neutrophils 67 % (Normal) Range: 40-74 Platelets 238 {x10E3/uL} (Normal) Range: 140-415 RDW 14.0 % (Normal) Range: 11.7-15.0 MCH 30.6 pg (Normal) Range: 27.0-34.0 MCHC 34.0 g/dL (Normal) Range: 32.0-36.0 MCV 90 fL (Normal) Range: 80-98 Hematocrit 39.1 % (Normal) Range: 36.0-50.0 Hemoglobin 13.3 g/dL (Normal) Range: 12.5-17.0 RBC 4.35 {x10E6/uL} (Normal) Range: 4.10-5.60 WBC 9.4 {x10E3/uL} (Normal) Range: 4.0-10.5 1-Etw-554694:09 VITAMIN B-12 (CYANOCOBALAMIN) Comments: PATIENT WAS FASTINGPERFORMED BY: [facility] SupplyJer[facility] Medical CenterUoanvt5488 [facility] [id number] (61496) Vitamin B12 787 pg/mL (Normal) Range: 211-946 6-Eqr-768105:09 MICROALBUMIN: CREATININE RATIO Comments: PATIENT WAS FASTINGPERFORMED BY: [facility] SupplyJer[facility] Medical CenterAuxfsn5451 [facility] [id number] (71728) AND (50924) Microalb/Creat Ratio 7.4 {mg/g_creat} (Normal) Range: 0.0-30.0 Microalbumin, Urine 11.9 ug/mL (Normal) Range: 0.0-17.0 Creatinine, Urine 161.3 mg/dL (Normal) Range: 22.0-328.0 3-Rgm-211231:38 HgA1C , Office (59671) HgA1C , Office 6.0 % (Normal) Range: 4.6 - 7.1 7-Glf-646257:26 LIPID CHOL 107 mg/dL (Normal) Comments: <200 mg/dL Cexlxkhem246-030 mg/dL Borderline>240 mg/dL High Risk HDL 45 mg/dL (Normal) Comments: Reference RangeHDL <40 mg/dL Low HDL CholesterolHDL >or= 60 mg/dL High HDL Cholesterol LDL 38 mg/dL (Normal) Range: 0-130 TRIG 118 mg/dL (Normal) Comments: Serum Triglycerides Reference IntervalNormal <150 mg/dLBorderline high 150 - 199 mg/dLHigh 200 - 499 mg/ dLVery High > or = 500 mg/dL VLDL 24 mg/dL (Normal) Range: 5-40 7-Qyj-076627:26 LIVER ALK P 54 U/L (Normal) Range: 50-136 ALT 18 U/L (Normal) Range: 12-78 AST 9 U/L (Abnormal) Range: 15-37 D BILI 0.14 mg/dL (Normal) Range: 0.00-0.30 T BILI 0.30 mg/dL (Normal) Range: 0.00-1.00 ALB 3.8 g/dL (Normal) Range: 3.4-5.0 T PROT 7.2 g/dL (Normal) Range: 6.4-8.2 25-Kkw-133851:11 CHEST WITH CONTRAST Radiology Report See Note (Normal) Comments: Exam Number: [id number] CLINICAL:Hypertension, short of breath on exertion. CT CHEST WITH CONTRAST COMPARISON:Plain film imaging dated May 10, 2009. TECHNIQUE:High resolution transaxial imaging was performed following theintravenous administration of 100 ml of Isovue-300 contrast material. FINDINGS:There is a 5-mm noncalcified nodule in the left pulmonary apex.There are mild emphysematous changes, predominating in the upperlung zones. A small calcified granuloma is seen in the right lowerlobe. Nearby, there is a noncalcified nodule measuring 2 mm indiameter (series 2 image 76). A small calcified granuloma is seen inthe anterolateral left lower lobe, and there is a nearbynoncalcified nodule measuring 3 mm in diameter (series 2 image 75).There are a pair of 1-2 mm noncalcified nodules near the l owerportion of the oblique fissure in the lower left lung (series 2image 64). Pulmonary parenchyma otherwise unremarkable. There are noacute infiltrates or masses. Normal pleura without pleural thickeni ng, a mass lesion orcalcifications. There are no pleural effusions. There is no significant evidence of mediastinal or hilar adenopathy.There is a mildly heterogeneous right paravertebral soft tissueatt enuation mass measuring 2.1 x 3.8 cm; no evidence of adjacentosseous destruction or foraminal enlargement. There is adjacentfatty prominence, possibility that this fatty tissue is a portion ofa larger m ass with mixed soft tissue and fat attenuation measuring7.3 x 2.9 cm cannot be excluded from consideration. Normal cardiac size without demonstrated pericardial fluid orthickening. There are dense coron alex calcifications. Patient isstatus post CABG. There are no valvular calcifications. Scattered calcifications are seen within the thoracic aorta. Noevidence of aneurysm or dissection. There is a bovine configurationof the arch vessels. Normal thoracic esophagus. Imaging through the upper abdomen notable for a right adrenal massmeasuring 4.1 x 3.2 cm. Mild degenerative changes are seen in the thoracic spine. There is no abnormal contrast enhancement. IMPRESSION:Sequelae of remote granulomatous disease. Noncalcified pulmonarynodules likely small granulomas. The patient is at high risk formetastatic d isease, follow-up examination could be obtained in 3-6months to assess stability. Atherosclerotic calcifications. Postsurgical changes of prior CABG Right paravertebral soft tissue attenuation mass santino uring 3.8 x 2.1cm could be a neural fibroma. There is adjacent fatty tissueprominence, the possibility of a larger mixed soft tissue and fatneoplasms such as a liposarcoma cannot be entirely excluded. B asedon degree of clinical concern, a follow-up examination could beobtained to assess stability or a PET scan could be considered atthis time. Mild atherosclerotic disease of the thoracic aorta, otherwi seunremarkable. Right adrenal mass measuring 4.1 x 3.[address] couldbe obtained to potentially characterize this as a lipid poor adenoma. N.B. : The above information has been verbally c onveyed for Eyal. Yumi Restrepo by Jan Restrepo M.D. to Office of Dr. Delvalle,referring physician's hospice plan administrator, on 06/15/2009 05:10:51 (ET),following the [employer] policy for r eporting offindings. Reported By: JAN RESTREPO M.D. 18-Tjf-93490:26 BMP BUN 14 mg/dL (Normal) Range: 7-18 BUN/CRE 11.7 {RATIO} (Normal) Range: 10-20 CA 8.7 mg/dL (Normal) Range: 8.5-10.1 CL 99 mmol/L (Normal) Range: 98-107 CO2 28.0 mmol/L (Normal) Range: 21.0-32.0 CREAT,SERUM 1.2 mg/dL (Normal) Range: 0.8-1.3 EST GFR 65 mL/min (Normal) EST GFR - AA 79 mL/min (Normal) GAP 10 (Normal) Range: 5-15 GLU 118 mg/dL (Abnormal) Range: 70-110 Comments: Fasting Glucose result from 110 to <126 mg/dL suggests IMPAIRED HOMEOSTASIS per A.D.A. criteria. K 3.7 mmol/L (Normal) Range: 3.5-5.1 NA 137 mmol/L (Normal) Range: 136-145 08-Ppk-897637:35 Microscopic Examination Comments: PATIENT NOT FASTINGPERFORMED BY: [facility] Ooetvu9004 [facility] [id number] Bacteria None seen (Normal) Epithelial Cells (non renal) None seen {/hpf} (Normal) Range: 0 - 10 Mucus Threads Present (Normal) RBC 0-3 {/hpf} (Normal) Range: 0 - 3 WBC None seen {/hpf} (Normal) Range: 0 - 5 45-Cjb-065689:09 BMP BUN 11 mg/dL (Normal) Range: 7-18 BUN/CRE 10.0 {RATIO} (Normal) Range: 10-20 CA 9.0 mg/dL (Normal) Range: 8.5-10.1 CL 105 mmol/L (Normal) Range: 98-107 CO2 28.0 mmol/L (Normal) Range: 21.0-32.0 CREAT,SERUM 1.1 mg/dL (Normal) Range: 0.8-1.3 EST GFR 72 mL/min (Normal) EST GFR - AA 87 mL/min (Normal) GAP 8 (Normal) Range: 5-15 GLU 108 mg/dL (Normal) Range: 70-110 K 3.7 mmol/L (Normal) Range: 3.5-5.1 NA 141 mmol/L (Normal) Range: 136-145 :09 CBCD ABSOLUTE NEUT 8.0 3/uL (Abnormal) Range: 2.0-7.7 BASO% 0.4 % (Normal) Range: 0-1 EO% 1.5 % (Normal) Range: 0-5 HCT 40.7 % (Normal) Range: 40-54 HGB 13.4 g/dL (Abnormal) Range: 14.0-18.0 LY% 12.5 % (Abnormal) Range: 19-41 MCH 31.3 pg (Normal) Range: 27.0-32.0 MCHC 32.9 g/dL (Normal) Range: 32-36 MCV 95.0 fL (Abnormal) Range: 80-94 MONO% 9.0 % (Normal) Range: 0-10 MPV 8.6 fL (Normal) Range: 6.5-12.0 NEUT% 76.6 % (Abnormal) Range: 47-70 PLT 212 K/mm3 (Normal) Range: 150-450 RBC 4.28 {M/mm3} (Abnormal) Range: 4.6-6.2 RDW 14.6 % (Normal) Range: 11.6-14.6 WBC 10.4 K/mm3 (Normal) Range: 4.4-11.0 22-Qob-356234:09 LIPID CHOL 169 mg/dL (Normal) Comments: <200 mg/dL Desirable 200-240 mg/dL Borderline >240 mg/dL High Risk HDL 54 mg/dL (Normal) Comments: Reference Range HDL <40 mg/dL Low HDL Cholesterol HDL >or= 60 mg/dL High HDL Cholesterol LDL 72 mg/dL (Normal) Range: 0-130 TRIG 217 mg/dL (Abnormal) Comments: Serum Triglycerides Reference Interval Normal <150 mg/dL Borderline high 150 - 199 mg/dL High 200 - 499 mg/dL Very High > or = 500 mg/dL VLDL 43 mg/dL (Abnormal) Range: 5-40 00-Ejo-874729:09 LIVER ALB 3.8 g/dL (Normal) Range: 3.4-5.0 ALK P 73 U/L (Normal) Range: 50-136 ALT 22 U/L (Normal) Range: 12-78 Comments: Please Note: Revised Reference Range effective 09 AST 13 U/L (Abnormal) Range: 15-37 D BILI 0.13 mg/dL (Normal) Range: 0.00-0.30 T BILI 0.50 mg/dL (Normal) Range: 0.00-1.00 T PROT 7.4 g/dL (Normal) Range: 6.4-8.2 : MG 2.2 mg/dL (Normal) Range: 1.5-2.2 : PTT 31.0 s (Normal) Range: 25.2-36.2 :35 CBC WITH MANUAL DIFF ([id number]) Comments: PATIENT NOT FASTINGPERFORMED BY: LabCoJer[facility] CenterTxngxo2680 [facility] [id number] Baso (Absolute) 0.1 {x10E3/uL} (Normal) Range: 0.0-0.2 Basos 1 % (Normal) Range: 0-3 Eos 1 % (Normal) Range: 0-7 Eos (Absolute) 0.1 {x10E3/uL} (Normal) Range: 0.0-0.4 Hematocrit 39.8 % (Normal) Range: 36.0-50.0 Hemoglobin 13.3 g/dL (Normal) Range: 12.5-17.0 Lymphs 16 % (Normal) Range: 14-46 Lymphs (Absolute) 1.6 {x10E3/uL} (Normal) Range: 0.7-4.5 MCH 31.4 pg (Normal) Range: 27.0-34.0 MCHC 33.5 g/dL (Normal) Range: 32.0-36.0 MCV 94 fL (Normal) Range: 80-98 Monocytes 10 % (Normal) Range: 4-13 Monocytes(Absolute) 1.0 {x10E3/uL} (Normal) Range: 0.1-1.0 Neutrophils 72 % (Normal) Range: 40-74 Neutrophils (Absolute) 7.1 {x10E3/uL} (Normal) Range: 1.8-7.8 Platelets 198 {x10E3/uL} (Normal) Range: 140-415 RBC 4.24 {x10E6/uL} (Normal) Range: 4.10-5.60 RDW 14.6 % (Normal) Range: 11.7-15.0 WBC 9.9 {x10E3/uL} (Normal) Range: 4.0-10.5 05-Mbl-425578:35 RETICULOCYTE COUNT [facility] Comments: PATIENT NOT FASTINGPERFORMED BY: LabCoPatrick Ville [id number] [facility] [id number] ([id number]) Reticulocyte Count 2.3 % (Normal) Range: 0.5-3.0 :35 LDH (LD) (LACTATE DEHYDROGENASE) Comments: PATIENT NOT FASTINGPERFORMED BY: Lab51 Nichols Streetox [facility] [id number] (33976) LDH 169 [iU]/L (Normal) Range: 100-250 09-Wiu-857446:35 IRON (54670) Comments: PATIENT NOT FASTINGPERFORMED BY: LabCoJer[facility] Medical CenterQemtji3047 [facility] [id number] Iron, Serum 54 ug/dL (Normal) Range: 40-155 :35 FERRITIN (66881) Comments: PATIENT NOT FASTINGPERFORMED BY: [facility]Southwest [facility] Center6370 [facility] [id number] Ferritin, Serum 96 ng/mL (Normal) Range: 22-322 81-Yha-112041:35 VITAMIN B-12 (CYANOCOBALAMIN) Comments: PATIENT NOT FASTINGPERFORMED BY: LabCoJer[facility] Medical CenterAtivvw3539 [facility] [id number] (05235) Vitamin B12 591 pg/mL (Normal) Range: 211-911 56-Hmb-255231:35 TSH (95361) Comments: PATIENT NOT FASTINGPERFORMED BY: LabCoJer[facility] Shore [facility] Medical CenterNxqrkr0053 [facility] [id number] TSH 1.620 {uIU/mL} (Normal) Range: 0.450-4.500 23-Bam-629685:35 MICROALBUMIN: CREATININE RATIO Comments: PATIENT NOT FASTINGPERFORMED BY: [facility] SupplyJer[facility] CenterGirrvm3905 [facility] [id number] (79823) AND (19782) Creatinine, Urine 153.6 mg/dL (Normal) Range: 22.0-328.0 Microalb/Creat Ratio 22.7 {mg/g_creat} (Normal) Range: 0.0-30.0 Microalbumin, Urine 34.9 ug/mL (Abnormal) Range: 0.0-17.0 :35 URINALYSIS, W/ MICRO (18413) Comments: PATIENT NOT FASTINGPERFORMED BY: [facility] SupplyCH[facility] St[facility] CenterAvotqy4034 [facility] [id number] Appearance Clear (Normal) Bilirubin Negative (Normal) Glucose Negative (Normal) Ketones Negative (Normal) Microscopic Examination MICRON (Normal) Comments: Microscopic follows if indicated. Microscopic Examination See below: (Normal) Nitrite, Urine Negative (Normal) Occult Blood Negative (Normal) pH 7.0 (Normal) Range: 5.0-7.5 Protein Negative (Normal) Specific [place] 1.018 (Normal) Range: 1.005-1.030 Urine-Color Yellow (Normal) Urobilinogen,Semi-Qn 0.2 mg/dL (Normal) Range: 0.0-1.9 WBC Esterase Negative (Normal) :35 METABOLIC PANEL, COMPREHENSIVE Comments: PATIENT NOT FASTINGPERFORMED BY: [facility] MicrosystemsSouth[facility] Center6370 [facility] [id number] (57309) A/G Ratio 1.7 (Normal) Range: 1.1-2.5 Albumin, Serum 4.4 g/dL (Normal) Range: 3.6-4.8 Alkaline Phosphatase, S 72 [iU]/L (Normal) Range: 25-160 ALT (SGPT) 8 [iU]/L (Normal) Range: 0-55 AST (SGOT) 14 [iU]/L (Normal) Range: 0-40 Bilirubin, Total 0.4 mg/dL (Normal) Range: 0.1-1.2 BUN 13 mg/dL (Normal) Range: 5-26 BUN/Creatinine Ratio 11 (Normal) Range: 8-27 Calcium, Serum 9.4 mg/dL (Normal) Range: 8.5-10.6 Carbon Dioxide, Total 24 mmol/L (Normal) Range: 20-32 Chloride, Serum 102 mmol/L (Normal) Range: 97-108 Creatinine, Serum 1.18 mg/dL (Normal) Range: 0.76-1.27 eGFR >59 mL/min/1.73 (Normal) eGFR AfricanAmerican >59 mL/min/1.73 Comments: Note: Persistent reduction for 3 months or more in an eGFR<60 mL/min/1.73 m2 defines CKD. Patients with eGFR values>/=60 mL/min/1.73 m2 may also have CKD if evidence of persistentproteinuria is (Normal) present. Additional information may be found [email or web address]. Globulin, Total 2.6 g/dL (Normal) Range: 1.5-4.5 Glucose, Serum 104 mg/dL (Abnormal) Range: 65-99 Potassium, Serum 3.9 mmol/L (Normal) Range: 3.5-5.2 Protein, Total, Serum 7.0 g/dL (Normal) Range: 6.0-8.5 Sodium, Serum 140 mmol/L (Normal) Range: 135-145 :35 LIPID PANEL (13761) Comments: PATIENT NOT FASTINGPERFORMED BY: LabCoJer[facility] Medical CenterQyyvwc1904 [facility] [id number] Cholesterol, Total 172 mg/dL (Normal) Range: 100-199 HDL Cholesterol 50 mg/dL (Normal) Comments: According to ATP-III Guidelines, HDL-C >59 mg/dL is considered anegative risk factor for CHD. LDL Cholesterol Calc 77 mg/dL (Normal) Range: 0-99 LDL/HDL Ratio 1.5 {ratio_units} (Normal) Range: 0.0-3.6 Triglycerides 226 mg/dL (Abnormal) Range: 0-149 VLDL Cholesterol Tj 45 mg/dL (Abnormal) Range: 5-40 48-Rph-329536:10 HgA1C , Office (13314) HgA1C , Office 6.0 % (Normal) Range: 4.6 - 7.1 99-Lpt-422138:10 Blood Glucose , Office (94700) Blood Glucose , Office 118 (Normal) 8-Vaa-607693:49 HgA1C , Office (80586) HgA1C , Office 6.o % (Normal) Range: 4.6 - 7.1 :49 Blood Glucose , Office (49154) Blood Glucose , Office 130 (Normal) :40 CBCD Comments: DR. ALVARADO ORDERED LIPID PSA CBCD MIACRE TSH CMP VIT12 RETICDR. SHRUTHI ORDERED LIPID/LP BASO% 0.5 % (Normal) Range: 0-1 EO% 3.6 % (Normal) Range: 0-5 HCT 37.0 % (Abnormal) Range: 40-54 HGB 12.4 g/dL (Abnormal) Range: 14.0-18.0 LY% 12.4 % (Abnormal) Range: 19-41 MCH 31.7 pg (Normal) Range: 27.0-32.0 MCHC 33.5 g/dL (Normal) Range: 32-36 MCV 94.8 fL (Abnormal) Range: 80-94 MONO% 12.4 % (Abnormal) Range: 0-10 MPV 7.7 fL (Normal) Range: 6.5-12.0 NEUT% 71.1 % (Abnormal) Range: 47-70 PLT 323 K/mm3 (Normal) Range: 150-450 RBC 3.91 {M/mm3} (Abnormal) Range: 4.6-6.2 RDW 13.7 % (Normal) Range: 11.6-14.6 WBC 10.1 K/mm3 (Normal) Range: 4.4-11.0 :40 COMP METABOLIC Comments: DR. ALVARADO ORDERED LIPID PSA CBCD [facility] VIT12 RETICDR. SHRUTHI ORDERED LIPID/LP A/G 0.9 {RATIO} (Normal) Range: 0.9-2.4 ALB 3.6 g/dL (Normal) Range: 3.4-5.0 ALK P 71 U/L (Normal) Range: 50-136 ALT 21 U/L (Abnormal) Range: 30-65 AST 13 U/L (Abnormal) Range: 15-37 BUN 14 mg/dL (Normal) Range: 7-18 BUN/CRE 12.7 {RATIO} (Normal) Range: 10-20 CA 9.2 mg/dL (Normal) Range: 8.5-10.1 CL 99 mmol/L (Normal) Range: 98-107 CO2 30.0 mmol/L (Normal) Range: 21.0-32.0 CREAT,SERUM 1.1 mg/dL (Normal) Range: 0.8-1.3 EST GFR 72 mL/min (Normal) EST GFR - AA 87 mL/min (Normal) GAP 6 (Normal) Range: 5-15 GLOB 4.0 g/dL (Normal) Range: 2.7-4.2 GLU 116 mg/dL (Abnormal) Range: 70-110 Comments: Fasting Glucose result from 110 to <126 mg/dL suggests IMPAIRED HOMEOSTASIS per A.D.A. criteria. K 4.1 mmol/L (Normal) Range: 3.5-5.1 NA 135 mmol/L (Abnormal) Range: 136-145 T BILI 0.60 mg/dL (Normal) Range: 0.00-1.00 T PROT 7.6 g/dL (Normal) Range: 6.4-8.2 :40 D BILI 0.21 mg/dL (Normal) Comments: DR. ALVARADO ORDERED LIPID PSA CBCD [facility] VIT12 RETICDR. SHRUTHI ORDERED LIPID/LP Range: 0.00-0.30 :40 LIPID Comments: DR. ALVARADO ORDERED LIPID PSA CBCD [facility] CMP VIT12 RETICDR. SHRUTHI ORDERED LIPID/LP CHOL 137 mg/dL (Normal) Comments: <200 mg/dL Desirable 200-240 mg/dL Borderline >240 mg/dL High Risk HDL 39 mg/dL (Normal) Comments: Reference Range HDL <40 mg/dL Low HDL Cholesterol HDL >or= 60 mg/dL High HDL Cholesterol LDL 69 mg/dL (Normal) Range: 0-130 TRIG 143 mg/dL (Normal) Comments: Serum Triglycerides Reference Interval Normal <150 mg/dL Borderline high 150 - 199 mg/dL High 200 - 499 mg/dL Very High > or = 500 mg/dL VLDL 29 mg/dL (Normal) Range: 5-40 :40 PSA, SCREEN 0.4 ng/mL (Normal) Comments: DR. ALVARADO ORDERED LIPID PSA CBCD [facility] VIT12 RETICDR. SHRUTHI ORDERED LIPID/LP Range: 0.0-4.0 :40 RETIC 2.00 % (Abnormal) Comments: DR. ALVARADO ORDERED LIPID PSA CBCD [facility] TSH CMP VIT12 RETICDR. SHRUTHI ORDERED LIPID/LP Range: 0.5-1.5 :40 TSH 0.61 {uIU/mL} (Normal) Comments: DR. ALVARADO ORDERED LIPID PSA CBCD [facility] TSH CMP VIT12 RETICDR. SHRUTHI ORDERED LIPID/LP Range: 0.358-3.74 :40 VITAMIN B12 970 pg/mL (Normal) Comments: DR. ALVARADO ORDERED LIPID PSA CBCD [facility] TSH CMP VIT12 RETICDR. SHRUTHI ORDERED LIPID/LP Range: 254-1320 [id number] MICROALB:CRE UR Comments: DR. ALVARADO ORDERED LIPID PSA CBCD [facility] TSH CMP VIT12 RETICDR. SHRUTHI ORDERED LIPID/LP MALB:CREAT 7.8 {mg/g_CRE} (Normal) MICROALBUMIN,UR 11.7 mg/L (Normal) UR CREAT 148.8 mg/dL (Normal) :49 HgA1C , Office (96994) HgA1C , Office 5.7 % (Normal) Range: 4.6 - 7.1 :49 Blood Glucose , Office (95901) Blood Glucose , Office 89 (Normal) :38 Lower Respiratory Culture Comments: Clinical Information: SRC:SP PERFORMED BY: [facility] [facility] [id number] Lower Respiratory Culture Final report (Normal) Result 1 HAEMIN (Normal) Comments: Haemophilus influenzaeHeavy growthBeta lactamase positive.Amoxicillin-clavulanic acid, azithromycin, clarithromycin, cefaclor,cefprozil, loracarbef, cefdinir, cefixime, cefpodoxime, cefuroxime,and telit hromycin are oral agents that may be used as empiric therapyfor respiratory tract infections due to Haemophilus spp. The resultsof susceptibility tests with these antimicrobial agents are often notusefu l for management of individual patients. (CLSI) If susceptibilitytesting is desired please contact the laboratory within 3 days. :09 B12/FOLATES FOLATES,SERUM >24.00 ng/mL (Normal) VITAMIN B12 582 pg/mL (Normal) Range: 211-911 :09 CBCD,SMEAR DIFF CELLS COUNTED 100 (Normal) EOS 1 % (Normal) Range: 0-5 HCT 39.2 % (Abnormal) Range: 40-54 HGB 13.7 g/dL (Abnormal) Range: 14.0-18.0 LYMPH 30 % (Normal) Range: 19-41 MCH 32.3 pg (Abnormal) Range: 27.0-32.0 MCHC 34.8 g/dL (Normal) Range: 32-36 MCV 92.6 fL (Normal) Range: 80-94 PLT 196 K/mm3 (Normal) Range: 150-450 PLT EST SeeNote (Normal) Comments: Result: ADEQUATE RBC 4.23 {M/mm3} (Abnormal) Range: 4.6-6.2 RDW 13.4 % (Normal) Range: 11.6-14.6 RED CELL MORPH SeeNote {NORMAL} (Normal) Comments: Result: NORM C+C SEGS 69 % (Normal) Range: 47-70 WBC 8.5 K/mm3 (Normal) Range: 4.4-11.0 :09 COMP METABOLIC A/G 1.2 {RATIO} (Normal) Range: 0.9-2.4 ALB 3.8 g/dL (Normal) Range: 3.4-5.0 ALK P 71 U/L (Normal) Range: 50-136 ALT 32 U/L (Normal) Range: 30-65 AST 20 U/L (Normal) Range: 15-37 BUN 14 mg/dL (Normal) Range: 7-18 BUN/CRE 12.7 {RATIO} (Normal) Range: 10-20 CA 8.8 mg/dL (Normal) Range: 8.5-10.1 CL 103 mmol/L (Normal) Range: 98-107 CO2 31.8 mmol/L (Normal) Range: 21.0-32.0 CREAT,SERUM 1.1 mg/dL (Normal) Range: 0.8-1.3 GAP 5 (Normal) Range: 5-15 GLOB 3.3 g/dL (Normal) Range: 2.7-4.2 K 3.6 mmol/L (Normal) Range: 3.5-5.1 NA 140 mmol/L (Normal) Range: 136-145 T BILI 0.45 mg/dL (Normal) Range: 0.00-1.00 T PROT 7.1 g/dL (Normal) Range: 6.4-8.2 GLU 114 mg/dL (Abnormal) Range: 70-110 Comments: Fasting Glucose result from 110 to <126 mg/dL suggests IMPAIRED HOMEOSTASIS per A.D.A. criteria. :09 FERRITIN 117 ng/mL (Normal) Range: 26-388 :09 IRON+TIBC IRON SATURATION 18.3 % (Normal) Range: 15.0-55.0 IRON, SERUM 65 ug/dL (Normal) Range: 35-150 TIBC 356 ug/dL (Normal) Range: 250-450 :09 LDH 143 U/L (Normal) Range: 100-190 :09 LIPID CHOL 140 mg/dL (Normal) Comments: <200 mg/dL Desirable 200-240 mg/dL Borderline >240 mg/dL High Risk HDL 49 mg/dL (Normal) Comments: Reference Range HDL <40 mg/dL Low HDL Cholesterol HDL >or= 60 mg/dL High HDL Cholesterol LDL 40 mg/dL (Normal) Range: 0-130 TRIG 253 mg/dL (Abnormal) Comments: Serum Triglycerides Reference Interval Normal <150 mg/dL Borderline high 150 - 199 mg/dL High 200 - 499 mg/dL Very High > or = 500 mg/dL VLDL 51 mg/dL (Abnormal) Range: 5-40 :09 RETIC 1.34 % (Normal) Range: 0.5-1.5 :09 ROUTINE UA BILIRUBIN URINE SeeNote (Normal) Comments: Result: NEGATIVE CLARITY CLEAR (Normal) COLOR YELLOW (Normal) GLUCOSE, UR SeeNote (Normal) Comments: Result: NEGATIVE KETONE UR SeeNote mg/dL (Normal) Comments: Result: NEGATIVE LEUK ESTERASE SeeNote (Normal) Comments: Result: NEGATIVE NITRITE UR SeeNote (Normal) Comments: Result: NEGATIVE OCCULT BLOOD-UR SeeNote (Normal) Comments: Result: NEGATIVE pH UR 7.0 (Normal) Range: 5.0-8.0 PROT DIPSTX TRACE (Normal) SP.GR. DIPSTX 1.010 (Normal) Range: 1.002-1.030 UROBILI 0.2 EU/dl (Normal) Range: 0.2 - 1.0 :09 TSH 1.23 {uIU/mL} (Normal) Range: 0.34-4.82 :20 HgA1C , Office (53498) HgA1C , Office 5.6 % (Normal) Range: 4.6 - 7.1 :20 Blood Glucose , Office (08506) Blood Glucose , Office 132 (Normal) :16 BMP BUN 12 mg/dL (Normal) Range: 7-18 BUN/CRE 10.9 {RATIO} (Normal) Range: 10-20 CA 8.8 mg/dL (Normal) Range: 8.5-10.1 CL 99 mmol/L (Normal) Range: 98-107 CO2 29.6 mmol/L (Normal) Range: 21.0-32.0 CREAT,SERUM 1.1 mg/dL (Normal) Range: 0.8-1.3 GAP 7 (Normal) Range: 5-15 GLU 100 mg/dL (Normal) Range: 70-110 K 3.7 mmol/L (Normal) Range: 3.5-5.1 NA 136 mmol/L (Normal) Range: 136-145 :16 CBCD,SMEAR DIFF CELLS COUNTED 100 (Normal) EOS 1 % (Normal) Range: 0-5 HCT 39.0 % (Abnormal) Range: 40-54 HGB 13.5 g/dL (Abnormal) Range: 14.0-18.0 LYMPH 18 % (Abnormal) Range: 19-41 MCH 31.1 pg (Normal) Range: 27.0-32.0 MCHC 34.6 g/dL (Normal) Range: 32-36 MCV 90.0 fL (Normal) Range: 80-94 MONOCYTE 5 % (Normal) Range: 0-10 PLT 201 K/mm3 (Normal) Range: 150-450 PLT EST SeeNote (Normal) Comments: Result: ADEQUATE RBC 4.34 {M/mm3} (Abnormal) Range: 4.6-6.2 RDW 13.4 % (Normal) Range: 11.6-14.6 RED CELL MORPH SeeNote {NORMAL} (Normal) Comments: Result: NORM C+C SEGS 76 % (Abnormal) Range: 47-70 WBC 9.1 K/mm3 (Normal) Range: 4.4-11.0 :30 HgA1C , Office (00650) HgA1C , Office 5.4 % (Normal) Range: 4.6 - 7.1 :30 Blood Glucose , Office (77896) Blood Glucose , Office 118 (Normal) :15 GLU GTT-2 HOUR 171 mg/dL (Abnormal) Comments: 2HR GTT GLU 2 HR GLU GTT-2 HOUR from [id number]. Range: 70-120 :15 GLU GTT-1 HOUR 194 mg/dL (Abnormal) Comments: 2HR GTT GLU 1 HR GLU GTT-1 HOUR from [id number]. Range: 120-170 :45 GLU GTT-30 min. 174 mg/dL (Abnormal) Comments: 2HR GTT GLU 1/2 HR GLU GTT-30 min. from [id number]. Range: 110-170 :15 GLU GTT-FASTING 101 mg/dL (Normal) Comments: 2HR GTT FASTING GLU GTT-FASTING from 1107:[id number]. Range: 70-110 Comments: GLUCOSE TOLERANCE TEST Reference Interval Non- Adults Fasting 70 - 110 30 minutes 110 - 170 1 hour 120 - 170 2 hour 70 - 120 3 hour 70 - 110 4 hour 70 - 110 5 hour 70 - 110 :03 CBCD,SMEAR DIFF Comments: DR. QUINTANILLA ORDERED: LIPID/LIVER. BAND 2 % (Normal) Range: 0-5 CELLS COUNTED 100 (Normal) EOS 3 % (Normal) Range: 0-5 HCT 34.7 % (Abnormal) Range: 40-54 HGB 12.2 g/dL (Abnormal) Range: 14.0-18.0 LYMPH 17 % (Abnormal) Range: 19-41 MCH 31.7 pg (Normal) Range: 27.0-32.0 MCHC 35.2 g/dL (Normal) Range: 32-36 MCV 90.2 fL (Normal) Range: 80-94 MONOCYTE 9 % (Normal) Range: 0-10 PLT 207 K/mm3 (Normal) Range: 150-450 PLT EST SeeNote (Normal) Comments: Result: ADEQUATE RBC 3.85 {M/mm3} (Abnormal) Range: 4.6-6.2 RDW 13.9 % (Normal) Range: 11.6-14.6 RED CELL MORPH SeeNote {NORMAL} (Normal) Comments: Result: NORM C&C SEGS 69 % (Normal) Range: 47-70 WBC 8.1 K/mm3 (Normal) Range: 4.4-11.0 :03 COMP METABOLIC Comments: DR. QUINTANILLA ORDERED: LIPID/LIVER. A/G 1.2 {RATIO} (Normal) Range: 0.9-2.4 ALB 3.7 g/dL (Normal) Range: 3.4-5.0 ALK P 73 U/L (Normal) Range: 50-136 ALT 30 [iU]/L (Normal) Range: 30-65 AST 17 U/L (Normal) Range: 15-37 BUN 13 mg/dL (Normal) Range: 7-18 BUN/CRE 11.8 {RATIO} (Normal) Range: 10-20 CA 8.6 mg/dL (Normal) Range: 8.5-10.1 CL 99 mmol/L (Normal) Range: 98-107 CO2 30.0 mmol/L (Normal) Range: 21.0-32.0 Comments: Please Note Reference Interval Change CREAT,SERUM 1.1 mg/dL (Normal) Range: 0.8-1.3 GAP 9 (Normal) Range: 5-15 GLOB 3.2 g/dL (Normal) Range: 2.7-4.2 Comments: Please Note Reference Interval Change GLU 101 mg/dL (Normal) Range: 70-110 K 4.0 mmol/L (Normal) Range: 3.5-5.1 NA 138 mmol/L (Normal) Range: 136-145 T BILI 0.77 mg/dL (Normal) Range: 0.00-1.00 T PROT 6.9 g/dL (Normal) Range: 6.4-8.2 :03 D BILI 0.19 mg/dL (Normal) Comments: DR. QUINTANILLA ORDERED: LIPID/LIVER. Range: 0.00-0.30 :03 LIPID Comments: DR. QUINTANILLA ORDERED: LIPID/LIVER. CHOL 120 mg/dL (Normal) Comments: <200 mg/dL Desirable 200-240 mg/dL Borderline >240 mg/dL High Risk HDL 40 mg/dL (Normal) Comments: Reference Range HDL <40 mg/dL Low HDL Cholesterol HDL >or= 60 mg/dL High HDL Cholesterol LDL 43 mg/dL (Normal) Range: 0-130 TRIG 187 mg/dL (Normal) Comments: Serum Triglycerides Reference Interval Normal <150 mg/dL Borderline high 150 - 199 mg/dL High 200 - 499 mg/dL Very High > or = 500 mg/dL VLDL 37 mg/dL (Normal) Range: 5-40 :03 MICROALB:CRE UR Comments: DR. QUINTANILLA ORDERED: LIPID/LIVER. MALB:CREAT 10.6 {mg/g_CRE} (Normal) MICROALBUMIN,UR 23.8 mg/L (Normal) UR CREAT 222.6 mg/dL (Normal) :03 VITAMIN B12 728 pg/mL (Normal) Comments: DR. QUINTANILLA ORDERED: LIPID/LIVER. Range: 211-911 :31 HgA1C , Office ([id number]) Comments: [facility] HgA1C , Office 4.8 % (Normal) Range: 4.6 - 7.1 :28 B12/FOLATES FOLATES,SERUM > 24.00 ng/mL (Normal) VITAMIN B12 697 pg/mL (Normal) Range: 211-911 :28 CBCD,SMEAR DIFF BAND 1 % (Normal) Range: 0-5 CELLS COUNTED 100 (Normal) EOS 2 % (Normal) Range: 0-5 HCT 38.1 % (Abnormal) Range: 40-54 HGB 13.1 g/dL (Abnormal) Range: 14.0-18.0 LYMPH 14 % (Abnormal) Range: 19-41 MCH 31.2 pg (Normal) Range: 27.0-32.0 MCHC 34.4 g/dL (Normal) Range: 32-36 MCV 90.8 fL (Normal) Range: 80-94 MONOCYTE 7 % (Normal) Range: 0-10 PLT 200 K/mm3 (Normal) Range: 150-450 PLT EST SeeNote (Normal) Comments: Result: ADEQUATE RBC 4.20 {M/mm3} (Abnormal) Range: 4.6-6.2 RDW 14.7 % (Abnormal) Range: 11.6-14.6 RED CELL MORPH SeeNote {NORMAL} (Normal) Comments: Result: NORM C&C SEGS 76 % (Abnormal) Range: 47-70 WBC 9.0 K/mm3 (Normal) Range: 4.4-11.0 :28 FERRITIN 63 ng/mL (Normal) Range: 3-244 :28 HAPTOGLOB 1628 191 mg/dL (Normal) Range: 34-200 Comments: Performed At: [address] [id number] :28 IRON+TIBC IRON SATURATION 18.8 % (Normal) Range: 15.0-55.0 IRON, SERUM 69 ug/dL (Normal) Range: 35-150 TIBC 368 ug/dL (Normal) Range: 250-450 :28 LDH 128 U/L (Normal) Range: 100-190 :28 RETIC 1.82 % (Abnormal) Range: 0.5-1.5 :28 TESTOSTER 4226 266 ng/dL (Normal) Range: 241-827 :32 BMP BUN 20 mg/dL (Abnormal) Range: 7-18 BUN/CRE 18.2 {RATIO} (Normal) Range: 10-20 CA 8.8 mg/dL (Normal) Range: 8.5-10.1 CL 104 mmol/L (Normal) Range: 98-107 CO2 29.8 mmol/L (Abnormal) Range: 22.0-29.0 CREAT,SERUM 1.1 mg/dL (Normal) Range: 0.8-1.3 GAP 6 (Normal) Range: 5-15 GLU 82 mg/dL (Normal) Range: 70-110 K 4.4 mmol/L (Normal) Range: 3.5-5.1 NA 140 mmol/L (Normal) Range: 136-145 :32 CBC HCT 35.8 % (Abnormal) Range: 40-54 MCH 30.4 pg (Normal) Range: 27.0-32.0 MCHC 34.8 g/dL (Normal) Range: 32-36 MCV 87.3 fL (Normal) Range: 80-94 PLT 230 K/mm3 (Normal) Range: 150-450 RDW 14.1 % (Normal) Range: 11.6-14.6 HGB 12.5 g/dL (Abnormal) Range: 14.0-18.0 RBC 4.10 {M/mm3} (Abnormal) Range: 4.6-6.2 WBC 9.3 K/mm3 (Normal) Range: 4.4-11.0 :32 MG 2.1 mg/dL (Normal) Range: 1.5-2.2 :32 PRO TIME INR 1.2 (Normal) PROTIME 13.6 s (Abnormal) Range: 10.6-13.2 :32 PTT 31.4 s (Normal) Range: 24.6-36.6 :32 T3UP T3 UPTAKE 32 % (Abnormal) Range: 33-40 T7 (FTI) 2.0 (Normal) Range: 1.4-4.5 :32 T4 THYROXIN 6.1 ug/dL (Normal) Range: 4.5-12.1 :32 TSH 1.19 {uIU/mL} (Normal) Range: 0.34-4.82 :08 HgA1C , Office (32149) Comments: [facility] HgA1C , Office 5.3 % (Normal) Range: 4.6 - 7.1 :08 Blood Glucose , Office (83199) Comments: [facility] Blood Glucose , Office 149 (Normal) :08 CBCD,SMEAR DIFF BAND 1 % (Normal) Range: 0-5 CELLS COUNTED 100 (Normal) EOS 4 % (Normal) Range: 0-5 HCT 38.0 % (Abnormal) Range: 40-54 HGB 13.0 g/dL (Abnormal) Range: 14.0-18.0 LYMPH 31 % (Normal) Range: 19-41 MCH 30.0 pg (Normal) Range: 27.0-32.0 MCHC 34.3 g/dL (Normal) Range: 32-36 MCV 87.6 fL (Normal) Range: 80-94 MONOCYTE 8 % (Normal) Range: 0-10 PLT 212 K/mm3 (Normal) Range: 150-450 PLT EST SeeNote (Normal) Comments: Result: ADEQUATE RBC 4.34 {M/mm3} (Abnormal) Range: 4.6-6.2 RDW 14.6 % (Normal) Range: 11.6-14.6 RED CELL MORPH SeeNote {NORMAL} (Normal) Comments: Result: NORM C&C SEGS 56 % (Normal) Range: 47-70 WBC 8.6 K/mm3 (Normal) Range: 4.4-11.0 :08 COMP METABOLIC A/G 1.2 {RATIO} (Normal) Range: 0.9-2.4 ALB 3.6 g/dL (Normal) Range: 3.4-5.0 ALK P 79 U/L (Normal) Range: 50-136 ALT 34 [iU]/L (Normal) Range: 30-65 AST 15 U/L (Normal) Range: 15-37 BUN 17 mg/dL (Normal) Range: 7-18 BUN/CRE 15.5 {RATIO} (Normal) Range: 10-20 CA 8.6 mg/dL (Normal) Range: 8.5-10.1 CL 104 mmol/L (Normal) Range: 98-107 CO2 30.7 mmol/L (Abnormal) Range: 22.0-29.0 CREAT,SERUM 1.1 mg/dL (Normal) Range: 0.8-1.3 GAP 4 (Abnormal) Range: 5-15 GLOB 3.1 g/dL (Normal) Range: 2.3-3.5 GLU 98 mg/dL (Normal) Range: 70-110 K 3.9 mmol/L (Normal) Range: 3.5-5.1 NA 139 mmol/L (Normal) Range: 136-145 T BILI 0.66 mg/dL (Normal) Range: 0.00-1.00 T PROT 6.7 g/dL (Normal) Range: 6.4-8.2 :08 COMPLETE UA MUCUS, URINE 0 SEEN {/hpf} (Normal) BACTERIA 1+ {/hpf} (Normal) BILIRUBIN URINE SeeNote (Normal) Comments: Result: NEGATIVE CLARITY CLEAR (Normal) COLOR YELLOW (Normal) GLUCOSE, UR SeeNote (Normal) Comments: Result: NEGATIVE KETONE UR SeeNote mg/dL (Normal) Comments: Result: NEGATIVE LEUK ESTERASE SeeNote (Normal) Comments: Result: NEGATIVE NITRITE UR SeeNote (Normal) Comments: Result: NEGATIVE OCCULT BLOOD-UR SeeNote (Normal) Comments: Result: NEGATIVE pH UR 6.5 (Normal) Range: 5.0-8.0 PROT DIPSTX SeeNote (Normal) Comments: Result: NEGATIVE RBC-UA 0 SEEN {/hpf} (Normal) Range: 0-5 SP.GR. DIPSTX 1.015 (Normal) Range: 1.002-1.030 SQUAM EPI SeeNote {/hpf} (Normal) Range: 0-5 Comments: Result: 0-5 SEEN UROBILI 0.2 EU/dl (Normal) Range: 0.2 - 1.0 WBC SeeNote {/hpf} (Normal) Range: 0-5 Comments: Result: 0-5 SEEN :08 D BILI 0.13 mg/dL (Normal) Range: 0.00-0.30 :08 FOLATES,S 2014 > 24.0 ng/mL (Normal) Comments: Indeterminate: 3.4 - 5.4 Deficient: <3.4 :08 LIPID CHOL 121 mg/dL (Normal) Comments: <200 mg/dL Desirable 200-240 mg/dL Borderline >240 mg/dL High Risk HDL 35 mg/dL (Normal) Comments: Reference Range HDL <40 mg/dL Low HDL Cholesterol HDL >or= 60 mg/dL High HDL Cholesterol LDL 56 mg/dL (Normal) Range: 0-130 TRIG 149 mg/dL (Normal) Comments: Serum Triglycerides Reference Interval Normal <150 mg/dL Borderline high 150 - 199 mg/dL High 200 - 499 mg/dL Very High > or = 500 mg/dL VLDL 30 mg/dL (Normal) Range: 5-40 :08 MICROALB:CRE UR MALB:CREAT 5.6 {mg/g_CRE} (Normal) MICROALBUMIN,UR 8.0 mg/L (Normal) UR CREAT 143.5 mg/dL (Normal) :08 PSA,TOT SCREEN 0.59 ng/mL (Normal) Range: 0.00-4.00 Comments: This test was performed using the TPSA method for theAgileJ LimitedUsentric chemistry system.Values obtained with different assay methods cannot be usedinterchangably.When changing PSA assays in the course of monito ring apatient, additionaly sequential testing should be carriedout to confirm baseline values. :08 TESTOST [id number] TESTOSTER %FREE 3.46 % (Normal) Range: 1.50-4.20 TESTOSTER,FREE 6.92 ng/dL (Normal) Range: 5.00-21.00 TESTOSTER,TOTAL 200 ng/dL (Abnormal) Range: 241-827 :08 TSH 1.29 {uIU/mL} (Normal) Range: 0.34-4.82 :08 VIT B12 1503 348 pg/mL (Normal) Range: 211-911 Comments: Performed At: [facility] [place], [place] [id number] At: [facility] [address] [place], [place] [id number] :00 CULT, DP WOUND ANAEROBIC CULT See Note (Normal) Comments: No anaerobic bacteria isolated. GRAM STAIN See Note (Normal) Comments: GRAM STAIN 2+ WHITE BLOOD CELLS 3+ RED CELL STROMA NO ORGANISMS SEEN WOUND CULTURE No growth aerobically. (Normal) :57 HgA1C , Office (85566) HgA1C , Office 5.4 % (Normal) Range: 4.6 - 7.1 :57 Blood Glucose , Office (19213) Blood Glucose , Office 164 (Normal) Plan of Care Name Dates Details Instructions BMI 40.0-44.9, adult : Eprescribed prescriptions (G8553) Indication: BMI 40.0-44.9, adult Benign essential hypertension : Eprescribed prescriptions (G8553) Indication: Benign essential hypertension Former smoker : Eprescribed prescriptions (G8553) Indication: Former smoker BMI 40.0-44.9, adult : Eprescribed prescriptions (G8553) Indication: BMI 40.0-44.9, adult Left leg cellulitis : Eprescribed prescriptions (G8553) Indication: Left leg cellulitis Orthostasis : Eprescribed prescriptions (G8553) Indication: Orthostasis BMI 40.0-44.9, adult : Eprescribed prescriptions (G8553) Indication: BMI 40.0-44.9, adult Upper GI bleed : Eprescribed prescriptions (G8553) Indication: Upper GI bleed Pre-op evaluation : Eprescribed prescriptions (G8553) Indication: Pre-op evaluation Acute pain of right knee : Eprescribed prescriptions (G8553) Indication: Acute pain of right knee Former smoker : Eprescribed prescriptions (G8553) Indication: Former smoker Diabetes mellitus type 2, controlled, without complications : Eprescribed prescriptions (G8553) Indication: Diabetes mellitus type 2, controlled, without complications Pre-op evaluation : Eprescribed prescriptions (G8553) Indication: Pre-op evaluation Lesion-Unknown behavior : Eprescribed prescriptions (G8553) Indication: Lesion-Unknown behavior Encounter for Medicare annual wellness exam : Diet, Exercise, and Wt loss Indication: Encounter for Medicare annual wellness exam Encounter for Medicare annual wellness exam : fall reduction handout Indication: Encounter for Medicare annual wellness exam Encounter for Medicare annual wellness exam : elderly packet given Indication: Encounter for Medicare annual wellness exam Encounter for Medicare annual wellness exam : advance planning information Indication: Encounter for Medicare annual wellness exam DIABETES MELLITUS WITH RENAL MANIFESTATIONS; TYPE II OR UNSPECIFIED TYPE, NOT STATED UNCONTROLLED : Eprescribed prescriptions (G8553) Indication: DIABETES MELLITUS WITH RENAL MANIFESTATIONS; TYPE II OR UNSPECIFIED TYPE, NOT STATED UNCONTROLLED Other and unspecified hyperlipidemia : Eprescribed prescriptions (G8553) Indication: Other and unspecified hyperlipidemia Abdominal pain : Follow up if no improvement or if symptoms worsen Indication: Abdominal pain Abdominal pain : Reviewed Diagnostic Tests Indication: Abdominal pain Abdominal pain : Reviewed Lab Indication: Abdominal pain Dysuria : Follow up in 1 week Indication: Dysuria Hematuria (Renamed from Blood in the urine) : *UTI treatment Indication: Hematuria (Renamed from Blood in the urine) Hematuria (Renamed from Blood in the urine) : Water in diet, brief version Indication: Hematuria (Renamed from Blood in the urine) Diabetes mellitus type 2, controlled, without complications : Blood Glucose Test: diabetes Indication: Diabetes mellitus type 2, controlled, without complications Diabetes mellitus type 2, controlled, without complications : Eprescribed prescriptions (G8553) Indication: Diabetes mellitus type 2, controlled, without complications DIABETES MELLITUS WITH RENAL MANIFESTATIONS; TYPE II OR UNSPECIFIED TYPE, NOT STATED UNCONTROLLED : Diet, Exercise, and Wt loss Indication: DIABETES MELLITUS WITH RENAL MANIFESTATIONS; TYPE II OR UNSPECIFIED TYPE, NOT STATED UNCONTROLLED DIABETES MELLITUS WITH RENAL MANIFESTATIONS; TYPE II OR UNSPECIFIED TYPE, NOT STATED UNCONTROLLED : Diabetes and Exercise: Preventing Low Blood Sugar: blood sugar Indication: DIABETES MELLITUS WITH RENAL MANIFESTATIONS; TYPE II OR UNSPECIFIED TYPE, NOT STATED UNCONTROLLED Acute exacerbation of COPD with asthma : Follow up if no improvement or if symptoms worsen Indication: 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 : *Antibiotic Usage Education - Male Indication: Acute exacerbation of COPD with asthma Encounter for Medicare annual wellness exam : fall reduction handout Indication: Encounter for Medicare annual wellness exam Encounter for Medicare annual wellness exam : elderly packet given Indication: Encounter for Medicare annual wellness exam Diabetes mellitus type 2, controlled, without complications : Diabetes and Illness: diabetes Indication: Diabetes mellitus type 2, controlled, without complications Benign essential hypertension : High Blood Pressure (Essential Hypertension) *: blood pressure problems Indication: Benign essential hypertension Upper respiratory infection : *Antibiotic Usage Education - Male Indication: Upper respiratory infection Bronchitis, acute : Antibiotic Usage Education - Female Indication: Bronchitis, acute Otitis media : Antibiotic Usage Education - Male Indication: Otitis media Acute sinusitis, unspecified : *URI Treatment Indication: Acute sinusitis, unspecified Acute sinusitis, unspecified : Antibiotic Usage Education - Male Indication: Acute sinusitis, unspecified Acute sinusitis, unspecified : URI Symptoms Indication: Acute sinusitis, unspecified Other and unspecified hyperlipidemia : Diet and Exercise Indication: Other and unspecified hyperlipidemia Cellulitis and abscess of leg, except foot : FOLLOW UP IN 3 MONTHS Indication: Cellulitis and abscess of leg, except foot Unspecified abnormal function study of cardiovascular system : See vital screen Indication: Unspecified abnormal function study of cardiovascular system Cellulitis and abscess of leg, except foot : FOLLOW UP TOMORROW Indication: Cellulitis and abscess of leg, except foot Cellulitis and abscess of leg, except foot : FOLLOW UP TOMORROW Indication: Cellulitis and abscess of leg, except foot Cellulitis and abscess of leg, except foot : Dressing Change Indication: Cellulitis and abscess of leg, except foot Cellulitis and abscess of leg, except foot : IV Indication: Cellulitis and abscess of leg, except foot Planned Observations Vitamin D Hydroxy (99931)Indication: Vitamin D deficiency On: :43 Request MICROALBUMIN: CREATININE RATIO ([id number]) AND ([id number])Indication: Diabetes mellitus type 2, controlled, without complications On: :39 Request HGB A1C ([id number])Indication: Diabetes mellitus type 2, controlled, without complications On: [id number] Request C-REACT PROT HIGH SENS(hsCRP) (17253)Indication: Abnormal C-reactive protein On: 3-Vuq-957725:35 Request LIPID PANEL (98980)Indication: Arteriosclerosis of both carotid arteries On: 7-Jfu-094641:24 Request Vitamin B-12 (cyanocobalamin) (71250)Indication: B12 deficiency On: 3-Abl-532943:46 Request HEPATITIS C ANTIBODY (35938)Indication: Encounter for hepatitis C virus screening test for high risk patient On: 4-Lkk-200031:42 Request CBC W/AUTO DIFF WBC (99555)Indication: Other and unspecified hyperlipidemia On: :41 Request METABOLIC PANEL, COMPREHENSIVE (45771)Indication: Other and unspecified hyperlipidemia On: :41 Request PSA (PROSTATE SPECIFIC ANTIGEN) (V76.44)Indication: Encounter for screening for malignant neoplasm of prostate (Renamed from Screening for prostate cancer) On: :41 Request CBC, PLATELETS & AUT DIFF (51375)Indication: Atrial fibrillation On: 06-Vke-394372:40 Request METABOLIC PANEL, COMPREHENSIVE (67442)Indication: Upper GI bleed On: 52-Zzh-890825:21 Request Comments: stat CBC W/AUTO DIFF WBC ([id number])Indication: Pancytopenia, acquired On: 55-Uur-210421:21 Request Comments: stat URINALYSIS, W/ MICRO (17489)Indication: Hematuria, microscopic On: 26-Lqt-875846:23 Request CBC with auto diff (00159)Indication: Diabetes mellitus type 2, controlled, without complications On: :35 Request METABOLIC PANEL, COMPREHENSIVE (20220)Indication: Diabetes mellitus type 2, controlled, without complications On: :35 Request CBC W/AUTO DIFF WBC (94577)Indication: Atrial fibrillation On: 2-Urh-808786:55 Request METABOLIC PANEL, COMPREHENSIVE (11064)Indication: Atrial fibrillation On: 3-Pdi-082649:55 Request PSA (PROSTATE SPECIFIC ANTIGEN) (V76.44)Indication: Encounter for screening for malignant neoplasm of prostate (Renamed from Screening for prostate cancer) On: 8-Zlw-926383:50 Request LIPID PANEL (47789)Indication: Other and unspecified hyperlipidemia On: 2-Eoj-997294:50 Request VITAMIN B-12 (CYANOCOBALAMIN) (34009)Indication: B12 deficiency On: :50 Request T4, FREE (THYROXINE) (44583)Indication: Atrial fibrillation On: :49 Request T3, FREE (TRIDOTHYRONINE) (68820)Indication: Atrial fibrillation On: :49 Request TSH ([id number])Indication: Atrial fibrillation On: :48 Request CBC W/AUTO DIFF WBC ([id number])Indication: Diabetes mellitus type 2, controlled, without complications On: :48 Request METABOLIC PANEL, COMPREHENSIVE (23973)Indication: Diabetes mellitus type 2, controlled, without complications On: :48 Request URINE VI CULTURE-[facility] COL COUNT (99414)Indication: Abnormal urine On: 04-Mur-259415:12 Request METABOLIC PANEL, COMPREHENSIVE ([id number])Indication: Diabetes mellitus type 2, controlled, without complications On: 0-Dih-478603:51 Request VITAMIN B-12 (CYANOCOBALAMIN) (30414)Indication: B12 deficiency On: 19-Kgh-079482:38 Request CBC W/AUTO DIFF WBC ([id number])Indication: DIABETES MELLITUS WITH RENAL MANIFESTATIONS; TYPE II OR UNSPECIFIED TYPE, NOT STATED UNCONTROLLED On: 47-Xnw-526211:37 Request METABOLIC PANEL, COMPREHENSIVE (50881)Indication: DIABETES MELLITUS WITH RENAL MANIFESTATIONS; TYPE II OR UNSPECIFIED TYPE, NOT STATED UNCONTROLLED On: 95-Ysc-253979:37 Request LIPID PANEL (60911)Indication: Other and unspecified hyperlipidemia On: 02-Med-706167:37 Request LIPID PANEL ([id number])Indication: Other and unspecified hyperlipidemia On: 96-Rgt-370520:36 Request MICROALBUMIN: CREATININE RATIO (18653) AND (97053)Indication: Diabetes mellitus type 2, controlled, without complications On: 44-Ovn-811421:36 Request CBC WITH MANUAL DIFF ([id number])Indication: Diabetes mellitus type 2, controlled, without complications On: 93-Fvm-523257:36 Request METABOLIC PANEL, COMPREHENSIVE ([id number])Indication: Diabetes mellitus type 2, controlled, without complications On: 17-Kzm-559953:36 Request PSA (PROSTATE SPECIFIC ANTIGEN) (V76.44)Indication: Screening for prostate cancer On: 9-Pvm-350564:28 Request LIPID PANEL (02262)Indication: Other and unspecified hyperlipidemia On: : Request CBC WITH MANUAL DIFF ([id number])Indication: Diabetes mellitus type 2, controlled, without complications On: : Request METABOLIC PANEL, COMPREHENSIVE (37525)Indication: Diabetes mellitus type 2, controlled, without complications On: : Request VITAMIN B-12 (CYANOCOBALAMIN) (18996)Indication: B12 deficiency On: : Request HgA1C , Office ([id number])Indication: Diabetes mellitus type 2, controlled, without complications On: 7-Lfu-114916:53 Request MICROALBUMIN: CREATININE RATIO (54053) AND ([id number])Indication: Proteinuria On: :22 Request Comments: 3 months VITAMIN B-12 (CYANOCOBALAMIN) (38940)Indication: B12 deficiency On: :22 Request Comments: 3 months METABOLIC PANEL, COMPREHENSIVE (25650)Indication: Diabetes mellitus type 2, controlled, without complications On: 3-Nkp-836628:09 Request Comments: 3 months CBC WITH MANUAL DIFF ([id number])Indication: Diabetes mellitus type 2, controlled, without complications On: :08 Request Comments: 3 months LIPID PANEL (44339)Indication: Diabetes mellitus type 2, controlled, without complications On: 6-Mic-888971:08 Request Comments: 3 months HgA1C , Office (41449)Indication: Diabetes mellitus type 2, controlled, without complications On: 2-Egj-673784:18 Request LIPID PANEL (90737)Indication: Other and unspecified hyperlipidemia On: 6-Ozy-863241:40 Request VITAMIN B-12 (CYANOCOBALAMIN) (67750)Indication: B12 deficiency On: :39 Request CBC WITH MANUAL DIFF ([id number])Indication: Diabetes mellitus type 2, controlled, without complications On: :39 Request METABOLIC PANEL, COMPREHENSIVE ([id number])Indication: Diabetes mellitus type 2, controlled, without complications On: :39 Request PSA (PROSTATE SPECIFIC ANTIGEN) (V76.44)Indication: Screening for prostate cancer On: 21-Fxe-672578:26 Request LIPID PANEL ([id number])Indication: Other and unspecified hyperlipidemia On: :14 Request CBC WITH MANUAL DIFF ([id number])Indication: B12 deficiency On: :14 Request METABOLIC PANEL, COMPREHENSIVE (57923)Indication: Diabetes mellitus type 2, controlled, without complications On: :14 Request MICROALBUMIN: CREATININE RATIO (75930) AND ([id number])Indication: Diabetes mellitus type 2, controlled, without complications On: :14 Request VITAMIN B-12 (CYANOCOBALAMIN) (76247)Indication: B12 deficiency On: :13 Request VITAMIN B-12 (CYANOCOBALAMIN) (94025)Indication: B12 deficiency On: :42 Request METABOLIC PANEL, COMPREHENSIVE (40197)Indication: Benign essential hypertension On: :42 Request CBC WITH MANUAL DIFF ([id number])Indication: Benign essential hypertension On: :42 Request LIPID PANEL (37015)Indication: Other and unspecified hyperlipidemia On: :42 Request MICROALBUMIN: CREATININE RATIO (70510) AND ([id number])Indication: Diabetes mellitus type 2, controlled, without complications On: :42 Request CBC WITH MANUAL DIFF ([id number])Indication: Diabetes mellitus type 2, controlled, without complications On: :14 Request METABOLIC PANEL, COMPREHENSIVE (00348)Indication: Diabetes mellitus type 2, controlled, without complications On: :14 Request LIPID PANEL ([id number])Indication: Other and unspecified hyperlipidemia On: :14 Request PSA (PROSTATE SPECIFIC ANTIGEN) (V76.44)Indication: Screening for prostate cancer On: :54 Request TSH ([id number])Indication: Diabetes mellitus type 2, controlled, without complications On: :54 Request MICROALBUMIN: CREATININE RATIO ([id number]) AND (40563)Indication: Diabetes mellitus type 2, controlled, without complications On: :54 Request METABOLIC PANEL, COMPREHENSIVE ([id number])Indication: Benign essential hypertension On: :53 Request CBC WITH MANUAL DIFF ([id number])Indication: B12 deficiency On: 38-Ojd-389342:53 Request VITAMIN B-12 (CYANOCOBALAMIN) (34303)Indication: B12 deficiency On: 84-Xef-065676:53 Request LIPID PANEL ([id number])Indication: Other and unspecified hyperlipidemia On: 75-Amq-514297:53 Request Metabolic Panel, Basic (48134)Indication: Benign essential hypertension On: :04 Request Comments: STAT -- for CT being done at [facility] on 07/25/10. TSH ([id number])Indication: Benign essential hypertension On: :08 Request Metabolic Panel, Comprehensive ([id number])Indication: Benign essential hypertension On: :07 Request CBC with manual diff ([id number])Indication: B12 deficiency On: :07 Request Vitamin B-12 (cyanocobalamin) (20265)Indication: B12 deficiency On: :07 Request TSH (35413)Indication: Diabetes mellitus type 2, controlled, without complications On: 43-Vrb-374259:53 Request METABOLIC PANEL, COMPREHENSIVE (88897)Indication: Diabetes mellitus type 2, controlled, without complications On: 24-Ewu-072691:53 Request CBC, PLATELETS & AUT DIFF ([id number])Indication: Diabetes mellitus type 2, controlled, without complications On: 75-Zgt-472634:53 Request VITAMIN B-12 (CYANOCOBALAMIN) ([id number])Indication: B12 deficiency On: 65-Wlq-262838:52 Request Blood Glucose , Office (76273)Indication: Diabetes mellitus type 2, controlled, without complications On: 5-Qvj-629300:38 Request IRON BINDING CAPACITY (TIBC) ([id number])Indication: Anemia On: 26-Obu-910886:45 Request FOLIC ACID SERUM (63350)Indication: Anemia On: :11 Request RETICULOCYTE COUNT MANUL ([id number])Indication: Anemia On: 7-Dki-961767:11 Request LDH (LD) (LACTATE DEHYDROGENASE) (20643)Indication: Anemia On: 9-Knn-852737:11 Request IRON BINDING CAPACITY (TIBC) ([id number])Indication: Anemia On: 9-Tvf-752726:11 Request IRON ([id number])Indication: Anemia On: :11 Request FERRITIN (33940)Indication: Anemia On: :11 Request CBC WITH MANUAL DIFF ([id number])Indication: Anemia On: :11 Request LIPID PANEL (64099)Indication: Other and unspecified hyperlipidemia On: :26 Request PSA (PROSTATE SPECIFIC ANTIGEN) (V76.44)Indication: Screening for prostate cancer On: :20 Request TSH ([id number])Indication: DIABETES MELLITUS WITH RENAL MANIFESTATIONS; TYPE II OR UNSPECIFIED TYPE, NOT STATED UNCONTROLLED On: :18 Request MICROALBUMIN: CREATININE RATIO ([id number]) AND ([id number])Indication: DIABETES MELLITUS WITH RENAL MANIFESTATIONS; TYPE II OR UNSPECIFIED TYPE, NOT STATED UNCONTROLLED On: :18 Request METABOLIC PANEL, COMPREHENSIVE (02362)Indication: Benign essential hypertension On: :18 Request CBC WITH MANUAL DIFF ([id number])Indication: Anemia On: :18 Request VITAMIN B-12 (CYANOCOBALAMIN) ([id number])Indication: B12 deficiency On: :18 Request CULTURE, SPUTUM (98703)Indication: Unspecified Diagnosis On: 9-Xwm-132871:10 Request METABOLIC PANEL, COMPREHENSIVE ([id number])Indication: Other and unspecified hyperlipidemia On: 74-Oyh-729746:22 Request LIPID PANEL (41582)Indication: Other and unspecified hyperlipidemia On: 70-Usy-559998:22 Request CBC WITH MANUAL DIFF ([id number])Indication: Anemia On: 80-Nyn-478295:22 Request LDH (LD) (LACTATE DEHYDROGENASE) (41614)Indication: Anemia On: 94-Rpu-903451:46 Request RETICULOCYTE COUNT MANUL (40109)Indication: Anemia On: 72-Pyj-743065:46 Request FERRITIN (57725)Indication: Anemia On: 72-Ulp-443941:46 Request IRON BINDING CAPACITY (TIBC) ([id number])Indication: Anemia On: 46-Wen-222500:46 Request IRON ([id number])Indication: Anemia On: 73-Fwc-157593:46 Request LIPID PANEL (41314)Indication: Other and unspecified hyperlipidemia On: :46 Request URINALYSIS W/O MICRO ([id number])Indication: Benign essential hypertension On: :45 Request TSH ([id number])Indication: Benign essential hypertension On: :45 Request CBC WITH MANUAL DIFF ([id number])Indication: Anemia On: :45 Request METABOLIC PANEL, COMPREHENSIVE (97130)Indication: Benign essential hypertension On: 45 Request VITAMIN B-12 (CYANOCOBALAMIN) ([id number])Indication: B12 deficiency On: :45 Request PSA (PROSTATE SPECIFIC ANTIGEN)Indication: Screening for prostate cancer On: : Request METABOLIC PANEL, COMPREHENSIVE (69551)Indication: Benign essential hypertension On: : Request CBC WITH MANUAL DIFF ([id number])Indication: Benign essential hypertension On: :04 Request LIPID PANEL ([id number])Indication: Other and unspecified hyperlipidemia On: :04 Request METABOLIC PANEL, COMPREHENSIVE (59603)Indication: Benign essential hypertension On: : Request VITAMIN B-12 (CYANOCOBALAMIN) ([id number])Indication: B12 deficiency On: : Request CBC WITH MANUAL DIFF ([id number])Indication: Anemia On: 3-Nlk-657566: Request LIPID PANEL ([id number])Indication: Other and unspecified hyperlipidemia On: 0-Nkl-879618:04 Request MICROALBUMIN: CREATININE RATIO (25037) AND ([id number])Indication: Diabetes mellitus type 2, controlled, without complications On: 9-Qno-040643:03 Request GLUCOSE TOLERANCE TEST (GTT) 2 hour ([id number])Indication: Diabetes mellitus type 2, controlled, without complications On: : Request Blood Glucose , Office ([id number])Indication: Diabetes mellitus type 2, controlled, without complications On: : Request Comments: done-tenzinp RETICULOCYTE COUNT MANUL ([id number])Indication: Anemia On: :36 Request VITAMIN B-12 (CYANOCOBALAMIN) (09761)Indication: Anemia On: :36 Request LDH (LD) (LACTATE DEHYDROGENASE) (42578)Indication: Anemia On: :36 Request IRON BINDING CAPACITY (TIBC) (59549)Indication: Anemia On: :36 Request IRON ([id number])Indication: Anemia On: :36 Request HAPTOGLOBIN ([id number])Indication: Anemia On: :36 Request FOLIC ACID SERUM ([id number])Indication: Anemia On: :36 Request FERRITIN ([id number])Indication: Anemia On: :36 Request CBC WITH MANUAL DIFF ([id number])Indication: Anemia On: :36 Request PSA (PROSTATE SPECIFIC ANTIGEN), SCREENING ([id number])Indication: Anemia On: :25 Request VITAMIN B-12 (CYANOCOBALAMIN) (17431)Indication: B12 deficiency On: :25 Request MICROALBUMIN URINE QUANT (79631) On: :24 Request TSH ([id number])Indication: Benign essential hypertension On: :24 Request URINALYSIS W/O MICRO (66843)Indication: Benign essential hypertension On: :24 Request CBC WITH MANUAL DIFF ([id number])Indication: Anemia On: :24 Request METABOLIC PANEL, COMPREHENSIVE (51527)Indication: Benign essential hypertension On: :24 Request Blood Glucose , Office ([id number])Indication: Cellulitis and abscess of leg, except foot On: 9-Adr-067708:07 Request Planned Encounters Medical; [facility] 3 Month FU - On: 26-Jun-2018 10:30 [facility] Gloria Alvarado DO, DO, Debra A Planned Procedures B 12 Injection, 1000 mcg On: 19-May-2018 Intent (J3420)By: Gloria Alvarado DO Comments: lot: [id number]: ite/route: Shannan del/IMamt: 1mLVIS signed when applicableMINOR Mendoza DO, Debra A Flu Vaccine (Quadrivalent) On: 16-Mar-2018 Intent 57002Xp: Gloria Alvarado DO Comments: Lot: #[id number]: 12/13/18Site: L dltd, IMDose prefilled syringegiven by: Brandyn reviewed and ABN signed DO, Gloria A ELECTROCARDIOGRAM, COMPLETE (ECG) On: 16-Mar-2018 Intent (03850)By: Fast DO, Gloria A Fast Comments: atrial fib with cvr - left axis no acute st t/wave changes DO, Gloria A Cartoid DopplerBy: Fast DO, Gloria On: 21-Oct-2017 Intent A Fast DO, Gloria A Comments: november Radiology - Chest- PA and LatBy: On: 06-Oct-2017 Intent Fast DO, Gloria A Fast DO, Gloria A Comments: stat Spirometry ([id number])By: Fast DO, On: 19-Feb-2017 Intent Gloria A Fast DO, Gloria A Comments: mod severe obstruction ELECTROCARDIOGRAM, COMPLETE (ECG) On: 19-Feb-2017 Intent (31391)By: Fast DO, Gloria A Fast Comments: ekg showed ireg ireg- afib, left axis nonspecific twave changes DO, Gloria A Fyonnifmh-Jhz-Fyfi (75912)By: On: 14-Jan-2017 Intent Fast DO, Gloria A Fast DO, Gloria A Comments: left lower Radiology - Knee - Right - Weight On: 14-Jan-2017 Intent BearingBy: Fast DO, Gloria A Fast DO, Gloria A Overnight Pulse OX ([id number])By: On: 01-Jan-2017 Intent Fast DO, Gloria A Fast DO, Gloria A Radiology - Cervical SpineBy: On: 22-Nov-2016 Intent Fast DO, Gloria A Fast DO, Gloria A Cartoid DopplerBy: Fast DO, Gloria On: 22-Nov-2016 Intent A Fast DO, Gloria A MARIE (Ankle Brachial Index) On: 22-Nov-2016 Intent ([id number])By: Fast DO, Gloira A Fast DO, Gloria A Overnight Pulse OX ([id number])By: On: 22-Nov-2016 Intent Fast DO, Gloria A Fast DO, Gloria A Overnight Pulse OX ([id number])By: On: 26-Jun-2015 Intent Fast DO, Gloria A Fast DO, Gloria A Overnight Pulse OX ([id number])By: On: 23-May-2015 Intent Fast DO, Gloria A Fast DO, Gloria A PNEUM VAC ADLT/IMUMNOSPR, On: 02-May-2015 Intent SBC/INTRM (65268)By: Joce DRAPER, Comments: [id number] dltdprefilledDesSMA jose eduardo Gloria A Fast DO, Gloria A Ultrasound - RenalBy: Tami REED, On: 09-Aug-2014 Intent Ashlee Carmona SPECIMEN HANDLING/TRANSPORT On: 09-Aug-2014 Intent (03332)By: Tami REED Ashlee Carmona Overnight Pulse OX (50694)By: On: 25-Mar-2014 Intent Joce DRAPER, Gloria A Fast DO, Gloria A Prevnar 13 (74131)By: Joce DRAPER, On: 25-Mar-2014 Intent Gloria A Fast DO, Gloria A Comments: lot: [id number]: 04/2015site/route: L del/IMamt:0.5mLVIS signed when applicableChelsea, [facility] [place] [facility] Assessment On: 17-Mar-2014 Intent (02949)By: Visit, Nurse Aerosol Treatment (37803)By: On: 16-Nov-2013 Intent Tami REEDAshlee Pulse Oximetry (07131)By: Tami On: 16-Nov-2013 Intent BRIANNAAshlee Eprescribed prescriptions On: 03-Nov-2013 Intent (G8553)By: Gloria Alvarado DO Fast DO, Gloria A Eprescribed prescriptions On: 24-Jun-2013 Intent (G8553)By: Natalie Rocha FLU VAC, SPLIT, >3 YEARS, On: 22-Mar-2013 Intent INTRAMUSC (92393)By: Aj, Comments: Lot #:[id number] date:mount given:0.5mlRoute: IMSite given: L dltdVIS and ABN signedGiven by: ISAIAH Delcid ADMINISTRATION OF INFLUENZA VIRUS On: 22-Mar-2013 Intent VACCINE (G0008)By: Natalie Rocha Eprescribed prescriptions On: 22-Mar-2013 Intent (G8553)By: Natalie Rocha Inhaler Demo (99813)By: Joce DRAPER, On: 19-Aug-2012 Intent Gloria A Fast DO, Gloria A Spirometry (32875)By: Aj On: 19-Aug-2012 Intent Natalie Comments: good effort flat =-mod severe obst- Eprescribed prescriptions On: 19-Aug-2012 Intent (G8553)By: Natalie Rocha ADMINISTRATION OF INFLUENZA VIRUS On: 10-Apr-2012 Intent VACCINE (G0008)By: Aj, Comments: Lot #:[id number] date:08.26Amount given:prefilled syringeSite given:L Dltd, IMGiven by: EVAN Delcid signed Natalie FLU VAC, SPLIT, >3 YEARS, On: 10-Apr-2012 Intent INTRAMUSC (55363)By: Natalie Rocha MARIE (Ankle Brachial Index) On: 13-Aug-2011 Intent (74074)By: Fast DO, Gloria A Fast Comments: at [facility] DO, Gloria A MARIE (Ankle Brachial Index) On: 24-Jul-2011 Intent (32241)By: Fast DO, Gloria A Fast DO, Gloria A Spirometry (04017)By: Aj, On: 24-Jul-2011 Intent Natalie Comments: just had a cold he is getting over so do at next appt TD Injection , IM (94274)By: On: 24-Jul-2011 Intent Natalie Rocha Comments: received at [place] 2009 FLU VAC, SPLIT, >3 YEARS, On: 09-Apr-2011 Intent INTRAMUSC (05278)By: Hemant GUERIN, Comments: Lot #[id number]-Shannan arm, IMDose prefilledgiven by:Emmy Campbell ADMINISTRATION OF INFLUENZA VIRUS On: 09-Apr-2011 Intent VACCINE (G0008)By: Emmy Marcos LPN CT - ChestBy: Fast DO, Gloria A On: 30-Jan-2011 Intent Fast DO, Gloria A MARIE (Ankle Brachial Index) On: 19-Jul-2010 Intent (00518)By: Marissa Villarreal RN MARIE (Ankle Brachial Index) On: 06-Jul-2010 Intent (91830)By: Fast DO, Gloria A Fast DO, Gloria A CT - ChestBy: Fast DO, Gloria A On: 06-Jul-2010 Intent Joce DO, Gloria A CT - ChestBy: Joce DO, Gloria A On: 22-Sep-2009 Intent Joce DO, Gloria A Comments: october Renal DopplerBy: Joce DO, Gloria A On: 15-May-2009 Intent Fast DO, Gloria A ADMINISTRATION OF PNEUMOCOCCAL On: 05-May-2009 Intent VACCINE (G0009)By: Jeff Alvarado DOa A Joce DRAPER, Gloria A PNEUM VAC ADLT/IMUMNOSPR, On: 05-May-2009 Intent SBC/INTRM (84205)By: Joce DRAPER, Comments: Lot #[id number]/8/11Site-right deltoidDose0.5mggiven by:MERYL Alvarado DO, Gloria A Pulse Oximetry (79089)By: Joce On: 30-Aug-2008 Intent DO Gloria A Fast DO, Gloria A Comments: 97 Spirometry (32132)By: Joce DRAPER, On: 30-Aug-2008 Intent Gloria A Fast DO, Gloria A Comments: good effort and curve mod obstruction Pulse Oximetry (47826)By: On: 28-Dec-2007 Intent Natalie Rocha Comments: 95% Spirometry (53726)By: Joce DRAPER, On: 28-Dec-2007 Intent Gloria A Fast DO, Gloria A Comments: good effort and curve- mod obstruction EKG (19979)By: Joce DRAPER Gloria A On: 28-Dec-2007 Intent Fast DO, Gloria A Comments: ekg showed normal sinus rhythym, normal axis, no acute st/t wave changes MARIE (Ankle Brachial Index) On: 05-Aug-2007 Intent (27951)By: Stephanie Lu MARIE (Ankle Brachial Index) On: 01-Jul-2007 Intent (75496)By: Joce DRAPER Gloria A Joce Comments: jul DO, Gloria A MARIE (Ankle Brachial Index) On: 06-Aug-2006 Intent (14077)By: Marissa Villarreal RN Rocephon Injection, 1 Gm On: 24-Jul-2006 Intent (J0696)By: Grace Morgan LPN Comments: 2 gm infusing into 100 cc ns lot# bcxd 09/21 IV Infusion (36157)By: Eddie On: 24-Jul-2006 Intent REEL ASSEMBLER, Peg MARIE (Ankle Brachial Index) On: 24-Jul-2006 Intent (04279)By: Gloria Alvarado DO Comments: order DO, Gloria A Rocephin Injection, 2 Gram On: 23-Jul-2006 Intent (J0696)By: HETAL SYKES CNP Comments: IV Rocephin -Given with 100cc NS 1530 - 1550BCXD 029Apr 2008Given by SMCIV infused well. Area free of redness or swelling. Rocephin Injection, 2 Gram On: 21-Jul-2006 Intent (J0696)By: Gloria Alvarado DO Comments: 2 gms of IV rocphin given Jeff DRAPERa A Planned Medications Vitamin B-12 1000 MCG/ML Injection Solution Ordered: 19-May-2018 Pending Gloria Alvarado DO, DO, Debra A Instructions Name Dates Details BMI 40.0-44.9, adult : How to access health information online Indication: BMI 40.0-44.9, adult BMI 40.0-44.9, adult : How to access health information online - Detail Indication: BMI 40.0-44.9, adult BMI 40.0-44.9, adult : Patient Instructions Indication: BMI 40.0-44.9, adult Benign essential hypertension : How to access health information online Indication: Benign essential hypertension Benign essential hypertension : How to access health information online - Detail Indication: Benign essential hypertension Benign essential hypertension : Patient Instructions Indication: Benign essential hypertension Former smoker : How to access health information online Indication: Former smoker Former smoker : How to access health information online - Detail Indication: Former smoker Former smoker : Patient Instructions Indication: Former smoker BMI 40.0-44.9, adult : How to access health information online Indication: BMI 40.0-44.9, adult BMI 40.0-44.9, adult : How to access health information online - Detail Indication: BMI 40.0-44.9, adult BMI 40.0-44.9, adult : Patient Instructions Indication: BMI 40.0-44.9, adult Left leg cellulitis : How to access health information online Indication: Left leg cellulitis Left leg cellulitis : How to access health information online - Detail Indication: Left leg cellulitis Left leg cellulitis : Patient Instructions Indication: Left leg cellulitis Orthostasis : How to access health information online Indication: Orthostasis Orthostasis : How to access health information online - Detail Indication: Orthostasis Orthostasis : Patient Instructions Indication: Orthostasis BMI 40.0-44.9, adult : How to access health information online Indication: BMI 40.0-44.9, adult BMI 40.0-44.9, adult : How to access health information online - Detail Indication: BMI 40.0-44.9, adult BMI 40.0-44.9, adult : Patient Instructions Indication: BMI 40.0-44.9, adult Upper GI bleed : How to access health information online Indication: Upper GI bleed Upper GI bleed : How to access health information online - Detail Indication: Upper GI bleed Upper GI bleed : Patient Instructions Indication: Upper GI bleed Pre-op evaluation : How to access health information online Indication: Pre-op evaluation Pre-op evaluation : How to access health information online Indication: Pre-op evaluation Pre-op evaluation : How to access health information online - Detail Indication: Pre-op evaluation Pre-op evaluation : Patient Instructions Indication: Pre-op evaluation Acute pain of right knee : How to access health information online Indication: Acute pain of right knee Acute pain of right knee : How to access health information online - Detail Indication: Acute pain of right knee Acute pain of right knee : Patient Instructions Indication: Acute pain of right knee Former smoker : How to access health information online Indication: Former smoker Former smoker : How to access health information online - Detail Indication: Former smoker Former smoker : Patient Instructions Indication: Former smoker Diabetes mellitus type 2, controlled, without complications : How to access health information online Indication: Diabetes mellitus type 2, controlled, without complications Diabetes mellitus type 2, controlled, without complications : How to access health information online - Detail Indication: Diabetes mellitus type 2, controlled, without complications Diabetes mellitus type 2, controlled, without complications : Patient Instructions Indication: Diabetes mellitus type 2, controlled, without complications Pre-op evaluation : How to access health information online Indication: Pre-op evaluation Pre-op evaluation : How to access health information online - Detail Indication: Pre-op evaluation Pre-op evaluation : Patient Instructions Indication: Pre-op evaluation Lesion-Unknown behavior : How to access health information online Indication: Lesion-Unknown behavior Lesion-Unknown behavior : How to access health information online - Detail Indication: Lesion-Unknown behavior Lesion-Unknown behavior : Patient Instructions Indication: Lesion-Unknown behavior Encounter for Medicare annual wellness exam : How to access health information online Indication: Encounter for Medicare annual wellness exam Encounter for Medicare annual wellness exam : How to access health information online - Detail Indication: Encounter for Medicare annual wellness exam Encounter for Medicare annual wellness exam : Patient Instructions Indication: Encounter for Medicare annual wellness exam DIABETES MELLITUS WITH RENAL MANIFESTATIONS; TYPE II OR UNSPECIFIED TYPE, NOT STATED UNCONTROLLED : How to access health information online Indication: DIABETES MELLITUS WITH RENAL MANIFESTATIONS; TYPE II OR UNSPECIFIED TYPE, NOT STATED UNCONTROLLED DIABETES MELLITUS WITH RENAL MANIFESTATIONS; TYPE II OR UNSPECIFIED TYPE, NOT STATED UNCONTROLLED : How to access health information online - Detail Indication: DIABETES MELLITUS WITH RENAL MANIFESTATIONS; TYPE II OR UNSPECIFIED TYPE, NOT STATED UNCONTROLLED DIABETES MELLITUS WITH RENAL MANIFESTATIONS; TYPE II OR UNSPECIFIED TYPE, NOT STATED UNCONTROLLED : Patient Instructions Indication: DIABETES MELLITUS WITH RENAL MANIFESTATIONS; TYPE II OR UNSPECIFIED TYPE, NOT STATED UNCONTROLLED Other and unspecified hyperlipidemia : Patient Instructions Indication: Other and unspecified hyperlipidemia Diabetes mellitus type 2, controlled, without complications : How to access health information online Indication: Diabetes mellitus type 2, controlled, without complications Diabetes mellitus type 2, controlled, without complications : How to access health information online - Detail Indication: Diabetes mellitus type 2, controlled, without complications Diabetes mellitus type 2, controlled, without complications : Patient Instructions Indication: Diabetes mellitus type 2, controlled, without complications DIABETES MELLITUS WITH RENAL MANIFESTATIONS; TYPE II OR UNSPECIFIED TYPE, NOT STATED UNCONTROLLED : How to access health information online Indication: DIABETES MELLITUS WITH RENAL MANIFESTATIONS; TYPE II OR UNSPECIFIED TYPE, NOT STATED UNCONTROLLED DIABETES MELLITUS WITH RENAL MANIFESTATIONS; TYPE II OR UNSPECIFIED TYPE, NOT STATED UNCONTROLLED : How to access health information online - Detail Indication: DIABETES MELLITUS WITH RENAL MANIFESTATIONS; TYPE II OR UNSPECIFIED TYPE, NOT STATED UNCONTROLLED DIABETES MELLITUS WITH RENAL MANIFESTATIONS; TYPE II OR UNSPECIFIED TYPE, NOT STATED UNCONTROLLED : Patient Instructions Indication: DIABETES MELLITUS WITH RENAL MANIFESTATIONS; TYPE II OR UNSPECIFIED TYPE, NOT STATED UNCONTROLLED Diabetes mellitus type 2, controlled, without complications : Patient Instructions Indication: Diabetes mellitus type 2, controlled, without complications BMI 40.0-44.9, adult : obesity counseling Indication: BMI 40.0-44.9, adult History of colon polyps : Patient Instructions Indication: History of colon polyps Diabetes mellitus type 2, controlled, without complications : Patient Instructions Indication: Diabetes mellitus type 2, controlled, without complications Diabetes mellitus type 2, controlled, without complications : Patient Instructions Indication: Diabetes mellitus type 2, controlled, without complications Diabetes mellitus type 2, controlled, without complications : Patient Instructions Indication: Diabetes mellitus type 2, controlled, without complications BMI 40.0-44.9, adult : obesity counseling Indication: BMI 40.0-44.9, adult Benign essential hypertension : Patient Instructions Indication: Benign essential hypertension Encounters Office Visit On: 19-May-2018 7:51 Encounter Reason: Follow up hospital - Reason for ER visit: note: (L lower leg cellulitis). The patient does not feel well (Still stuggling with being depressed. [facility] is sending out some physical therapist to help him wit End: 21-May-2018 21:16 h exercising. The leg is starting to get better.) and has decreased energy level. Patient has been compliant with instructions. Current medication use: no side effects and compliant with dosing regimen. Note for Follow up hospital: he hadnt done the mrsa clearance we had suggested yet so encourage and rediscussed how and he woke up middle of night 05/15 leg hurt and looked was red went in got iv van c and clinda sent home on keflex mrsa dna positive blood cx neg- no issues with the keflex- they need to start probiotic- has followup next week with foot doc who is debriding his toe - no fever-feels better redness better, [ADDITIONAL REASON] Transition into care - The patient is transitioning into care from a hospital ([facility] 05/15). Note for Transition into care: not havign ark stools or blood in stool doesnt want to ta ke meds for depression- he going to start exercising- Encounter Diagnosis: Former smoker, BMI 40.0-44.9, adult, Cellulitis, Anemia, blood loss, B12 deficiency, Ulcer of toe of left foot [facility] Office Visit On: 20-Apr-2018 10:56 Encounter Reason: Physical male exam - General health: does not feel well (struggling with depression about everything he has been going thru), has decreased energy level and is sleeping poorly (CPAP makes it difficult). End: 26-Apr-2018 19:38 The patient's appetite is normal. Nutrition: normal/adequate. Exercises 0 days per week. Sleeps on average 9 hours per night. Normal bowel and bladder habits. Current emotional problems include depress ion and sleep disturbances (cpap makes it hard to sleep). Note for Physical exam: just saw oncologist and senior safety support manager- weight down 6 more pounds but not exercising like was so needs motivation- - he not wearing bipap - just because- - no more dizzy spells no falls- YEAST resolved- he was admitted again for foot infection- on left now has post op shoe- and he has followup with [employer] on - - bp is good- he doesnt want to change meds for depression or do moreEncounter Diagnosis: BMI 40.0-44.9, adult, Former smoker, Benign essential hypertension (401.1), [facility], Cellulitis, MRSA carrier, Atrial fibrillation, Macular degeneration, Diabetes mellitus type 2, controlled, without complications, Other and unspecified hyperlipidemia (272.4), Arteriosclerosis of both carotid arteries, Adenocarcinoma of lung [facility] Office Visit On: 16-Mar-2018 12:56 Encounter Reason: Physical male exam - General health: feels well with minor complaints (having a hard time getting back into the routine of exercising), has good energy level (getting better) and is sleeping well (havin End: 16-Mar-2018 20:31 g a hard time wearing cpap machine at night). The patient's appetite is normal. Nutrition: normal/adequate. Exercises 0 days per week. Sleeps on average 9 hours per night. Normal bowel and bladder habit s. Current emotional problems include sleep disturbances (cpap makes it hard to sleep). Note for Physical exam: just saw oncologist and senior safety support manager- weight down 6 more pounds but not exercising like was so needs motivation- - he not wearing bipap - because just hasnt wantted to not depressed- no more dizzy spells no falls- YEAST resolvedEncounter Diagnosis: Former smoker, BMI 40.0-44.9, adult, [facility], Adenocarcinoma of lung, Candidiasis, cutaneous, Other and unspecified hyperlipidemia (272.4), Encounter for screening for malignant neoplasm of prostate (Renamed from Screening for prostate cancer), Encounter for hepatitis C virus screening test for high risk patient, Arteriosclerosis of both carotid arteries, B12 deficiency, Need for prophylactic vaccination and inoculation against influenza (Renamed from Need for immunization against influenza), Atrial fibrillation, Abnormal C-reactive protein, Diabetes mellitus type 2, controlled, without complications, Vitamin D deficiency [facility] Office Visit On: 30-Dec-2017 11:45 Encounter Reason: Skin Problems - The onset of the skin problems has been sudden and they have been occurring in a persistent pattern for 2 days. The course has been increasing. The problem is characterized as a change i End: 30-Dec-2017 22:14 n skin color and other (redness, burning). Lesions are described as red. The spots were first seen on the groin. Note for Skin problems: not taking his probiotics- painfulEncounter Diagnosis: Former smoker, BMI 40.0-44.9, adult, Candidiasis, cutaneous [facility] Office Visit On: 26-Dec-2017 9:43 Encounter Reason: Transition into care - The patient is transitioning into care from a hospital ([facility] for cellulitis of L leg. Admit 12/20 and d/c 12/24)., End: 28-Dec-2017 21:21 [ADDITIONAL REASON] Follow up hospital - Reason for ER visit: note: (cellulitis of L leg). The patient does not feel well (leg is feeling somewhat better but still very tired and fatigued), has decreas ed energy level and is sleeping well. Patient has been compliant with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 TYPE II OR UNSPECIFIED TYPE, NOT STATED UNCONTR OLLED (250.00), Chronic Obstructive Pulmonary Disease (496.), GERD (530.81), Colon Polyps, History of (V12.72), Benign essential hypertension (401.1), Other and unspecified hyperlipidemia (272.4) [facility] Phone Encounter On: 26-Oct-2013 15:20 Encounter Diagnosis: Abnormal blood chemistry (790.6) End: 26-Oct-2013 15:23 [facility] Office Visit On: 27-Jul-2013 9:03 Encounter Reason: Annual Medicare Exam - The patient had reviewed and updated the family history, medication/s, past medical history and social history. Yes the patient did have a mini mental status exam done today. The End: 27-Jul-2013 21:55 activities of daily living the patient needs help with are none. The patient has driven in past 6 months, fallen in the past 6 months and put area rugs through house, but the patient has not had fecal i ncontinence, had urinary incontinence, missed or ran out of medications to soon, gotten lost, has a medalert necklace or bracelet or put handrails in bathroom. The patient has completed the following pr eventative measures: PSA testing and colonoscopy. The patient does have durable power of energy attorney and living will. The patient has noticed lack of energy. Other providers contributing to the patient's c are are senior safety support manager, gastrologist, surgeon (cardiovascular) and other: (opthmologist, neurologist).Encounter Diagnosis: Colon Polyps, History of (V12.72), Annual Medicare Physical (V70.0), BMI 40.0-44.9, ADULT (V85.41) [facility] Office Visit On: 24-Jun-2013 10:24 Encounter Reason: Follow up for chronic medical issues - The patient feels well with no complaints, has good energy level and is sleeping well. Patient has been compliant with instructions. Current medication use: no paige End: 24-Jun-2013 11:33 e effects and compliant with dosing regimen. Patient sleeps 9 hours per night. Nutrition: inappropriate diet, no supplemental vitamins & iron and low salt diet. The medical issues the patient is fol lowing up for include All identified problems below, blood sugar issues (DM), cardiac issues (CAD), gastric reflux, high blood pressure, other (anemia, ED) and peripheral vascular disease. Note for Fol low up for chronic medical issues: he feels alot better- had stress test and cath -heart ok but found blockage in legs- and had to have stents in both legs- Dr Cheung, [ADDITIONAL REASON] Follow up, Laboratory Test Results - Date: (06/17/13). Encounter Diagnosis: DIABETES MELLITUS WITHOUT MENTION OF COMPLICATION; TYPE II OR UNSPECIFIED TYPE, NOT STATED UNCONTROLLED (250.00), B12 Deficiency (281.1), Proteinuria (791.0), Benign essential hypertension (401.1), GERD (530.81), Other and unspecified hyperlipidemia (272.4), SCREENING FOR CANCER OF THE PROSTATE (V76.44) [facility] Office Visit On: 22-Mar-2013 11:06 Encounter Reason: Follow up for chronic medical issues - The patient feels well with no complaints, has good energy level and is sleeping well. Patient has been compliant with instructions. Current medication use: no paige End: 22-Mar-2013 12:25 e effects and compliant with dosing regimen. Patient sleeps 9 hours per night. Nutrition: inappropriate diet, no supplemental vitamins & iron and low salt diet. The medical issues the patient is fol lowing up for include All identified problems below, blood sugar issues (DM), cardiac issues (CAD), gastric reflux, high blood pressure, other (anemia, ED) and peripheral vascular disease. Note for Fol low up for chronic medical issues: - he has appointment to see Dr Germain for cardio- stress this summer daughter moved and having to care for her dog and property- bp is great- he has had sore throat f or 4 days there all day- has had temp that got better - dry cough - little sob, [ADDITIONAL REASON] Follow up, Laboratory Test Results - Date: (03/16/13). Encounter Diagnosis: DIABETES MELLITUS WITHOUT MENTION OF COMPLICATION; TYPE II OR UNSPECIFIED TYPE, NOT STATED UNCONTROLLED (250.00), Need for prophylactic vaccination and inoculation against influenza (V04.81), Other and unspecified hyperlipidemia (272.4), GERD (530.81), Benign essential hypertension (401.1), B12 Deficiency (281.1), Proteinuria (791.0), Chronic Obstructive Pulmonary Disease (496.), Visit for suture removal (V58.32), Corns (700), Sore throat (462) [facility] Office Visit On: 19-Aug-2012 11:43 Encounter Reason: Follow up for chronic medical issues - The patient feels well with no complaints, has good energy level and is sleeping well. Patient has been compliant with instructions. Current medication use: no paige End: 19-Aug-2012 21:22 e effects and compliant with dosing regimen. Patient sleeps 9 hours per night. Nutrition: inappropriate diet, no supplemental vitamins & iron and low salt diet. The medical issues the patient is fol lowing up for include All identified problems below, blood sugar issues (DM), cardiac issues (CAD), gastric reflux, high blood pressure, other (anemia, ED) and peripheral vascular disease. Note for Fol low up for chronic medical issues: weight down 8 pounds and just joined [employer] and thinks this will help- bp is reasonable- sugar good- seeing shorty- did mri of spine and had herniated discs- and neuropathy- he feels this is why he cant walk easily and falls- psa good and no gerd- stopped spiriva didnt think mad e a difference- no gerd, [ADDITIONAL REASON] Follow up, Laboratory Test Results - Date: (07/23/12). Encounter Diagnosis: DIABETES MELLITUS WITHOUT MENTION OF COMPLICATION; TYPE II OR UNSPECIFIED TYPE, NOT STATED UNCONTROLLED (250.00), Chronic Obstructive Pulmonary Disease (496.), Benign essential hypertension (401.1), B12 Deficiency (281.1), Other and unspecified hyperlipidemia (272.4), GERD (530.81), Proteinuria (791.0), Coronary Artery Disease [facility] Office Visit On: 05-Jun-2012 14:13 Encounter Reason: suture removal - The lesion requiring suture removal happened weeks ago. The apparent size of the suture removal is 3 cm. The body lesions are described as located on the mouth. The suture were placed b End: 05-Jun-2012 15:39 ecause of laceration.Complications at the area of the sutures include none.Encounter Diagnosis: Visit for suture removal (V58.32) [facility] Office Visit On: 10-Apr-2012 13:34 Encounter Reason: Follow up for chronic medical issues - The patient feels well with no complaints, has good energy level and is sleeping well. Patient has been compliant with instructions. Current medication use: no paige End: 10-Apr-2012 14:27 e effects and compliant with dosing regimen. Patient sleeps 9 hours per night. Nutrition: inappropriate diet, no supplemental vitamins & iron and low salt diet. The medical issues the patient is fol lowing up for include All identified problems below, blood sugar issues (DM), cardiac issues (CAD), gastric reflux, high blood pressure, other (anemia, ED) and peripheral vascular disease. Note for Fol low up for chronic medical issues: he was having falling issues- had long of spine and per patient has herniated disc- they sent him to dr davis- and also saw Dr chavez- he said heart ok- no gerd - his bp is good and sugar is stable Encounter Diagnosis: NEED FOR PROPHYLACTIC VACCINATION AND INOCULATION AGAINST INFLUENZA (V04.81), Benign essential hypertension (401.1), B12 Deficiency (281.1), GERD (530.81), DIABETES MELLITUS WITHOUT MENTION OF COMPLICATION; TYPE II OR UNSPECIFIED TYPE, NOT STATED UNCONTROLLED (250.00), Other and unspecified hyperlipidemia (272.4), Peripheral vascular disease, unspecified (443.9), Colon Polyps, History of (V12.72), Chronic Obstructive Pulmonary Disease (496.), BMI 40.0-44.9, ADULT (V85.41), SCREENING FOR CANCER OF THE PROSTATE (V76.44) [facility] Office Visit On: 13-Aug-2011 9:01 Encounter Reason: Nurse procedure visit - The symptoms have been associated with other (MARIE testing).Encounter Diagnosis: Peripheral vascular disease, unspecified (443.9) End: 13-Aug-2011 9:36 [facility] Office Visit On: 24-Jul-2011 9:03 Encounter Reason: Follow up for chronic medical issues - The patient feels well with no complaints, has good energy level and is sleeping well. Patient has been compliant with instructions. Current medication use: no paige End: 24-Jul-2011 9:48 e effects and compliant with dosing regimen. Patient sleeps 9 hours per night. Nutrition: inappropriate diet, no supplemental vitamins & iron and low salt diet. The medical issues the patient is fol lowing up for include All identified problems below, blood sugar issues (DM), cardiac issues (CAD), gastric reflux, high blood pressure, other (anemia, ED) and peripheral vascular disease. weight : (274 ). Note for Follow up for chronic medical issues: feeling well but got infectiona fter walking alot at [employer] and now clearedf up- he just saw shorty- for his neuropathy- and he is going to try him on an alternative drug- lyrica -his bp and sugar are stable- -his weight way up becuase couldnt exercise with his foot- he is trying to get back on track- no gerd - has seen cardio in last year and chol was great , [ADDITIONAL REASON] Follow up tests - Diagnostic tests include CT scan (chest) and other (labs). Date: (07/17/11). Encounter Diagnosis: Chronic Obstructive Pulmonary Disease (496.), Other and unspecified hyperlipidemia (272.4), Benign essential hypertension (401.1), GERD (530.81), DIABETES MELLITUS WITHOUT MENTION OF COMPLICATION; TYPE II OR UNSPECIFIED TYPE, NOT STATED UNCONTROLLED (250.00), B12 Deficiency (281.1), Peripheral vascular disease, unspecified (443.9) [facility] Office Visit On: 09-Apr-2011 9:11 Encounter Reason: Injections - The medication the patient is here to receive is other.Encounter Diagnosis: Need for prophylactic vaccination and inoculation against influenza (V04.81) End: 09-Apr-2011 9:31 [facility] Office Visit On: 30-Jan-2011 10:33 Encounter Reason: Follow up for chronic medical issues - The patient feels well with no complaints, has good energy level and is sleeping well. Patient has been compliant with instructions. Current medication use: no paige End: 30-Jan-2011 11:19 e effects and compliant with dosing regimen. Patient sleeps 9 hours per night. Nutrition: inappropriate diet, no supplemental vitamins & iron and low salt diet. The medical issues the patient is fol lowing up for include All identified problems below, blood sugar issues (DM), cardiac issues (CAD), gastric reflux, high blood pressure, other (anemia, ED) and peripheral vascular disease. weight : (274 ). Note for Follow up for chronic medical issues: weight down 27 pounds- he is feeling well- bp is good- no gerd- his cardio- has changed his simvistatin to lipitor doesnt know what dose due to drug i nteraction- he breathing is good with spiriva no gerd- and sugar good, [ADDITIONAL REASON] Follow up, Laboratory Test Results - Date: (01/02/11). Encounter Diagnosis: DIABETES MELLITUS WITHOUT MENTION OF COMPLICATION; TYPE II OR UNSPECIFIED TYPE, NOT STATED UNCONTROLLED (250.00), Chronic Obstructive Pulmonary Disease (496.), GERD (530.81), Other and unspecified hyperlipidemia (272.4), Benign essential hypertension (401.1), B12 Deficiency (281.1) [facility] Office Visit On: 09-Oct-2010 9:00 Encounter Reason: Nurse procedure visit - Reason for visit: other (hemglobin a1c).Encounter Diagnosis: DIABETES MELLITUS WITHOUT MENTION OF COMPLICATION; TYPE II OR UNSPECIFIED TYPE, NOT STATED UNCONTROLLED (250.00) End: 09-Oct-2010 9:23 [facility] Office Visit On: 05-Oct-2010 10:27 Encounter Reason: Follow up for chronic medical issues - The patient feels well with no complaints, has good energy level and is sleeping well. Patient has been compliant with instructions. Current medication use: no paige End: 05-Oct-2010 10:58 e effects and compliant with dosing regimen. Patient sleeps 9 hours per night. Nutrition: inappropriate diet, no supplemental vitamins & iron and low salt diet. The medical issues the patient is fol lowing up for include All identified problems below, blood sugar issues (DM), cardiac issues (CAD), gastric reflux, high blood pressure, other (anemia, ED) and peripheral vascular disease. weight : ([employer] weekly- 279). Note for Follow up for chronic medical issues: doing weight watchers and [employer] and down 20 pounds and motivated and feels alot better- bp is good- breathing is good and no gerdEncounter Diagnosis: Benign essential hypertension (401.1), B12 Deficiency (281.1), Peripheral vascular disease, unspecified (443.9), GERD (530.81), Chronic Obstructive Pulmonary Disease (496.), Other and unspecified hyperlipidemia (272.4), DIABETES MELLITUS WITHOUT MENTION OF COMPLICATION; TYPE II OR UNSPECIFIED TYPE, NOT STATED UNCONTROLLED (250.00), SCREENING FOR CANCER OF THE PROSTATE (V76.44) [facility] Office Visit On: 24-Jul-2010 18:03 Encounter Diagnosis: Benign essential hypertension (401.1) End: 24-Jul-2010 22:59 [facility] Phone Encounter On: 23-Jul-2010 19:06 Encounter Diagnosis: B12 Deficiency (281.1), Benign essential hypertension (401.1) End: 23-Jul-2010 19:09 [facility] Office Visit On: 19-Jul-2010 12:54 Encounter Reason: Nurse procedure visit - Reason for visit: MARIE.Encounter Diagnosis: Peripheral vascular disease, unspecified (443.9), Essential and other specified forms of tremor (333.1) End: 19-Jul-2010 15:10 [facility] Office Visit On: 06-Jul-2010 12:03 Encounter Reason: Follow up for chronic medical issues - The patient feels well with no complaints, has good energy level and is sleeping well. Patient has been compliant with instructions. Current medication use: no paige End: 08-Jul-2010 15:26 e effects and compliant with dosing regimen. Patient sleeps 9 hours per night. Nutrition: inappropriate diet, no supplemental vitamins & iron and low salt diet. The medical issues the patient is fol lowing up for include All identified problems below, blood sugar issues (DM), cardiac issues (CAD), gastric reflux, high blood pressure, other (anemia, ED) and peripheral vascular disease. Note for Fol low up for chronic medical issues: bp is great - wieght is up more- but sugar is better- -didnt get ct of chest needs to do - had labs with uri- told him to join weight watchers- and going to [place] 4 days a week- he sees uri in next month- has no gerd- shorty working on neuropathy- he sees breathing has been pretty good- hasnt worsened can tell a differene when doesnt take medsEncounter Diagnosis: DIABETES MELLITUS WITH RENAL MANIFESTATIONS; TYPE II OR UNSPECIFIED TYPE, NOT STATED UNCONTROLLED (250.40), Peripheral vascular disease, unspecified (443.9), Benign essential hypertension (401.1), Chronic Obstructive Pulmonary Disease (496.), B12 Deficiency (281.1), GERD (530.81) [facility] Office Visit On: 28-Feb-2010 8:25 Encounter Reason: Sore throat - The onset of the sore throat has been sudden and has been occurring in a persistent pattern for 2 days. The course has been worsening. The symptoms have been associated with change in voic End: 28-Feb-2010 9:15 e ,cough ,non-purulent sputum and post-nasal drip, while the symptoms have not been associated with chills ,difficulty in swallowing ,ear pain ,fever ,runny nose or sinus pain. Note for Sore throat: c oughing up sputum but hasnt looked at color - temp last night - didnt check- not taking anything otcEncounter Diagnosis: Upper respiratory infection (465.9) [facility] Office Visit On: 02-Feb-2010 12:02 Encounter Reason: Follow up for chronic medical issues - The patient feels well with no complaints ,has good energy level and is sleeping well. Patient has been compliant with instructions. Current medication use: no paige End: 02-Feb-2010 12:58 e effects and compliant with dosing regimen. Patient sleeps 9 hours per night. Nutrition: inappropriate diet ,no supplemental vitamins & iron and low salt diet. The medical issues the patient is fol lowing up for include All identified problems below ,blood sugar issues (DM) ,cardiac issues (CAD) ,gastric reflux ,high blood pressure ,other (anemia, ED) and peripheral vascular disease. Note for Yennifer low up for chronic medical issues: hard to lose weight in summer he says- at his duaghters- eating out alot- weight down 6 pounds- bp is good- just started on gabapentin from dr davis for his neuropath y- no gerd and breathign stable- b12 and sugar ok, [ADDITIONAL REASON] Follow up, Laboratory Test Results - Date: (12/21/09). Encounter Diagnosis: DIABETES MELLITUS WITHOUT MENTION OF COMPLICATION; TYPE II OR UNSPECIFIED TYPE, NOT STATED UNCONTR OLLED (250.00), GERD (530.81), B12 Deficiency (281.1), Anemia (285.9), Other and unspecified hyperlipidemia (272.4), Chronic Obstructive Pulmonary Disease (496.), Benign essential hypertension (401.1) [facility] Office Visit On: 22-Sep-2009 11:29 Encounter Reason: Follow up for chronic medical issues - The patient feels well with no complaints ,has good energy level and is sleeping well. Patient has been compliant with instructions. Current medication use: no paige End: 24-Sep-2009 22:25 e effects and compliant with dosing regimen. Patient sleeps 9 hours per night. Nutrition: inappropriate diet ,no supplemental vitamins & iron and low salt diet. The medical issues the patient is fol lowing up for include All identified problems below ,blood sugar issues (DM) ,cardiac issues (CAD) ,gastric reflux ,high blood pressure ,other (anemia, ED) and peripheral vascular disease. Note for Yennifer low up for chronic medical issues: he is swimming now 4 x a week - going to try the bicycle- no gerd and mood is stable, [ADDITIONAL REASON] Follow up, Laboratory Test Results - Date: (07/17/09). Encounter Diagnosis: Chronic Obstructive Pulmonary Disease (496.), DIABETES MELLITUS WITHOUT MENTION OF COMPLICATION; TYPE II OR UNSPECIFIED TYPE, NOT STATED UNCONTROLLED (250.00), Other and unspecified hyperlipidemia (272.4), Anemia (285.9), B12 Deficiency (281.1) , GERD (530.81), SCREENING FOR CANCER OF THE PROSTATE (V76.44), Backache, unspecified (724.5) [facility] Office Visit On: 15-May-2009 10:35 Encounter Diagnosis: Coronary Artery Disease, Peripheral vascular disease, unspecified (443.9) End: 15-May-2009 22:39 [facility] Office Visit On: 05-May-2009 9:55 Encounter Reason: Follow up for diabetes/glucose intolerance - The patient feels well with minor complaints (dyspnea on exertion - hx of copd) ,has decreased energy level and is sleeping well. Patient has been compliant End: 07-May-2009 22:17 with instructions. Nutrition: inappropriate diet. blood pressure range : (randomly). Note for Follow up for diabetes/glucose intolerance: he doesnt think bp is always this high- he didnt exercise this week and has gained weight and hasnt gotten bp done- just started exercising again- his bps at home have been good thoughEncounter Diagnosis: DIABETES MELLITUS WITHOUT MENTION OF COMPLICATION; TYPE II OR UNSPECIFIED TYPE, NOT STATED UNCONTR OLLED (250.00), Benign essential hypertension (401.1), Other and unspecified hyperlipidemia (272.4), Anemia (285.9), B12 Deficiency (281.1), Chronic Obstructive Pulmonary Disease (496.) [facility] Office Visit On: 07-Dec-2008 8:48 Encounter Reason: Eye redness - The onset of the eye redness has been sudden and has been occurring in a persistent pattern for 1 weeks. The course has been decreasing. The eye redness is described as mild. Note for Eye End: 11-Dec-2008 21:36 redness: left eye- watery draiiange in am has to pry open- - no uri sx- no fever- eyes little itchy=-no sneezing- no change in vison- never could see out of left eye- and has macular degeneration-- eye feels gritty not painfuleEncounter Diagnosis: Acute Conjuctivitis (372.01), Backache, unspecified (724.5), fatigue -get sleep study, claudication [facility] Office Visit On: 18-Nov-2008 10:39 Encounter Reason: Follow up for chronic medical issues - The patient feels well with no complaints ,has good energy level and is sleeping well. Patient has been compliant with instructions. Current medication use: no paige End: 20-Nov-2008 22:14 e effects ,compliant with dosing regimen and considered effective by patient. Patient sleeps 7 hours per night. Impact of disease: no overall impact. Nutrition: balanced diet. The medical issues the pat ient is following up for include All identified problems below ,blood sugar issues (DM) ,cardiac issues (CAD) ,gastric reflux ,high blood pressure ,other (anemia, ED) and peripheral vascular disease. bl ood pressure range : (120/78 ). Note for Follow up for chronic medical issues: bps at [facility] office was 120/60 have been good- weight down a few pounds he- fell and broke right ankle- he has been feeli ng good and weight is coming down-still a little anemic- havign some bright red blood- he still hasnt got scope be uase they wouldnt do last time- he will call and make appt, [ADDITIONAL REASON] Follow up, Laboratory Test Results - Date: (10/28/08). , [ADDITIONAL REASON] Follow up for diabetes/glucose intolerance - The patient feels well with no comp laints ,has good energy level and is sleeping well. Patient has been compliant with instructions. Nutrition: balanced diet. Note for Follow up for diabetes/glucose intolerance: I don't monitor my sugars Encounter Diagnosis: Anemia (285.9), Benign essential hypertension (401.1), Otitis media (382.9), Acute sinusitis, unspecified (461.9), Cellulitis and abscess of leg, except foot (682.6), SOB (786.05), DIABETES MELLITUS WITH RENAL MANIFESTATIONS; TYPE II OR UNSPECIFIED TYPE, NOT STATED UNCONTROLLED (250.40), Other and unspecified hyperlipidemia (272.4), Coronary Artery Disease, Bronchitis,Acute (466.0) [facility] Office Visit On: 30-Aug-2008 14:33 Encounter Reason: Cough - The onset of the cough has been sudden and 2 weeks ago. The cough is characterized as productive of mucopurulent sputum. The amount of sputum produced is scanty. The cough occurs all the time. T End: 30-Aug-2008 21:34 he symptoms are aggravated by supine posture, but not by meals. The symptoms have been associated with fever ,headache and runny nose, while the symptoms have not been associated with hoarseness ,sore t hroat or wheezing. the color of the sputum is greenish (was) and yellowish. Note for Cough: he was sick last week and feels better but left with residual cough-- - nonproductive - no longer green sputum-- no fever now did last week- little wheezing Encounter Diagnosis: Bronchitis,Acute (466.0) [facility] Office Visit On: 11-Aug-2008 11:41 Encounter Reason: Follow up for chronic medical issues - The patient feels well with minor complaints. Patient has been compliant with instructions. Current medication use: no side effects. Patient sleeps 10 hours per ni End: 11-Aug-2008 12:27 ght. Nutrition: balanced diet. The medical issues the patient is following up for include All identified problems below ,blood sugar issues ,cardiac issues ,high blood pressure ,high cholesterol ,other (b12 deficiency) and peripheral vascular disease. Note for Follow up for chronic medical issues: gained 40 pounds in last year- his said he quit exercising still seeing the conservation biology professor and she is really mad at him-- [facility] Diagnosis: DIABETES MELLITUS WITH RENAL MANIFESTATIONS; TYPE II OR UNSPECIFIED TYPE, NOT STATED UNCONTROLLED (250.40), SOB (786.05), GERD (530.81), Benign essential hypertension (401.1), B12 Deficiency (281.1), Anemia (285.9), Coronary Artery Disease, SCREENING FOR CANCER OF THE PROSTATE (V76.44), Colon Polyps, History of (V12.72), Other and unspecified hyperlipidemia (272.4) [facility] Historical Summary On: 01-Aug-2008 9:40 [facility] End: 01-Aug-2008 9:42 Office Visit On: 23-May-2008 13:20 Encounter Diagnosis: Unspecified Diagnosis End: 23-May-2008 17:25 [facility] Office Visit On: 19-May-2008 12:09 Encounter Diagnosis: Unspecified Diagnosis End: 19-May-2008 12:13 [facility] Office Visit On: 19-May-2008 10:59 Encounter Reason: Sinus pain - The onset of the pain has been acute and has been occurring in a persistent pattern for 4 days. The course has been constant. The pain is characterized as a pressure sensation. The pain is End: 19-May-2008 12:00 experienced any time of the day (no diurnal variation). The pain is described as being located in the frontal area. The symptoms have been associated with fever (night sweats) ,nasal discharge/stuffy nose ,sore throat and tenderness over sinuses. Encounter Diagnosis: Acute sinusitis, unspecified (461.9), Otitis media (382.9) [facility] Office Visit On: 08-Feb-2008 9:52 Encounter Reason: Follow up, Laboratory Test Results - Date: (01/04/08). Note for Follow up, Laboratory Test Results: his bp is better -- wt down 8 pounds-- Saw Dr Yeboah-- who sent him to the conservation biology professor-- - breathing is b End: 08-Feb-2008 10:30 diego -- his anemia is slightly imroved-- and workup is neg- he is trying to start exercising and he is doing better- Encounter Diagnosis: B12 Deficiency (281.1), Benign essential hypertension (401.1), Other and unspecified hyperlipidemia (272.4), Anemia (285.9) [facility] Historical Summary On: 29-Dec-2007 16:13 [facility] End: 29-Dec-2007 16:14 Office Visit On: 28-Dec-2007 15:06 Encounter Reason: Follow up for chronic medical issues - The patient feels well with minor complaints (weight gain) ,has decreased energy level and is sleeping well. Patient has been compliant with instructions. Current End: 28-Dec-2007 22:40 medication use: no side effects and compliant with dosing regimen. The medical issues the patient is following up for include All identified problems below ,blood sugar issues ,gastric reflux ,high bloo d pressure ,high cholesterol ,other (obesity, anemia, memory loss, arthritis, alcoholic, cad, fatigue) and peripheral vascular disease. blood pressure range : (160's/70's). Note for Follow up for chron ic medical issues: he had to quit exerciwsing because was having problems with pain in arm and leg so saw blake and gave him cortisone shot-- but arm was tremoring so blake sent him to [facility]-- so had emg and ncs- told not parkinsons-- said brain not communicating with arm-- so put him on a tid med-- but unsure what it was-- he has been eating alot and not exercising-- so now going back on diet-- , [ADDITIONAL REASON] Follow up, Laboratory Test Results - Date: (10/28/07). , [ADDITIONAL REASON] Weight gain - The patient has had the problem of weight gain for 5 months. The p atient's appetite is normal. The patient's dietary intake is normal. The patient has gained 30 pounds. There has been no associated abdominal pain ,constipation ,depression ,diarrhea ,edema ,excessive a lcohol intake ,fever ,nausea ,skin rash or vomiting. Encounter Diagnosis: DIABETES MELLITUS WITHOUT MENTION OF COMPLICATION; TYPE II OR UNSPECIFIED TYPE, NOT STATED UNCONTROLLED (250.00), Benign essential hypertension (401.1), GERD (530.81), Peripheral vascular disease, unspecified (443.9), B12 Deficiency (281.1), Other and unspecified hyperlipidemia (272.4), Anemia (285.9), SOB (786.05) [facility] Office Visit On: 05-Aug-2007 8:42 Encounter Diagnosis: Peripheral vascular disease, unspecified (443.9) End: 05-Aug-2007 10:13 [facility] Office Visit On: 01-Jul-2007 9:24 Encounter Reason: Follow up, Laboratory Test Results - Date: (04/22/07). , [ADDITIONAL REASON] Follow up for chronic medical issues - The patient feels well with no complaints End: 01-Jul-2007 10:09 ,has good energy level and is sleeping well. Patient has been compliant with instructions. Current medication use: no side effects and compliant with dosing regimen. Nutrition: balanced diet ,supplemen karena vitamins and low salt diet. The medical issues the patient is following up for include All identified problems below ,blood sugar issues ,gastric reflux ,high blood pressure ,high cholesterol and ot her (obesity, anemia, b-12 deficiency, ed, cad). Note for Follow up for chronic medical issues: no claudication now Encounter Diagnosis: DIABETES MELLITUS WITHOUT MENTION OF COMPLICATION; TYPE II OR UNSPECIFIED TYPE, NOT STATED UNCONTR OLLED (250.00), Other and unspecified hyperlipidemia (272.4), Benign essential hypertension (401.1), B12 Deficiency (281.1), GERD (530.81), Peripheral vascular disease, unspecified (443.9), SCREENING FOR CANCER OF THE PROSTATE (V76.44) [facility] Office Visit On: 18-Feb-2007 15:13 Encounter Reason: Follow up for chronic medical issues - The patient feels well with minor complaints (trouble sleeping) ,has decreased energy level and is sleeping poorly. Patient has been compliant with instructions. C End: 18-Feb-2007 16:08 urrent medication use: no side effects and compliant with dosing regimen. Nutrition: balanced diet ,no supplemental vitamins & iron and low salt diet. The medical issues the patient is following up for include All identified problems below ,blood sugar issues ,cardiac issues ,gastric reflux ,high blood pressure ,high cholesterol and other (ed, b-12 deficiency, anemia). Note for Follow up for rehabilitation consultant shruthi medical issues: had another stent placed- but he doesnt feel any different- he was doing cardiac rehaband had problems and that is where they found issue- b-p looks good , [ADDITIONAL REASON] Follow up, Laboratory Test Results - Date: (02/12/07- on face sheet). , [ADDITIONAL REASON] Sleep Disturbance - The onset of the sleep disturbance has been gradual and has been occurring in a persistent pattern for weeks. The course has been increasing. The sleep disturbance is described as moderate. The menstrual problem is characterized as restlessness and leg pain. The symptoms have been associated with caffeine use daily (coffee in am), while the symptoms have not been associated with caffiene use daily ,tried benadryl or tried OTC meds. Note for Sleep Disturbance : he feels the issue is associated with his arthritis and he doesnt want to take any meds for this at the present time he will followup with blake-- regarding his arthritis-- he does snore and wake up not rested-- Encounter Diagnosis: DIABETES MELLITUS WITHOUT MENTION OF COMPLICATION; TYPE II OR UNSPECIFIED TYPE, NOT STATED UNCONTROLLED (250.00), Benign essential hypertension (401.1), B12 Deficiency (281.1), Anemia (285.9), Other and unspecified hyperlipidemia (272.4), fatigue -get sleep study [facility] Office Visit On: 20-Nov-2006 8:03 Encounter Reason: Follow up for chronic medical issues - The patient feels well with minor complaints (arthritis) ,has good energy level and is sleeping well. Patient has been compliant with instructions. Current medicat End: 20-Nov-2006 8:40 ion use: no side effects. Patient sleeps 6 hours per night. Impact of disease: no emotional impact. Nutrition: balanced diet. The medical issues the patient is following up for include All identified pr oblems below ,blood sugar issues ,cardiac issues ,high blood pressure ,high cholesterol and peripheral vascular disease. 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 Patient has been compliant with instructions. Current medication use: no side effects. Patient sleeps 8 hours per night. Nutritio End: 07-Aug-2006 9:40 n: balanced diet. The medical issues the patient is following up for include cellulitis. Note for Follow up acute care visit: still some serosanguoinous fluid - saw Veronica last week and has him packpaul ng and changing it daily- off the antiobiotics- no fever- no redness- cx negEncounter Diagnosis: Unspecified abnormal function study of cardiovascular system (794.30) [facility] Office Visit On: 29-Jul-2006 10:07 Encounter Diagnosis: Cellulitis and abscess of leg, except foot (682.6) End: 29-Jul-2006 10:58 [facility] Historical Summary On: 29-Jul-2006 7:54 [facility] End: 29-Jul-2006 8:08 Office Visit On: 25-Jul-2006 11:35 [facility] End: 25-Jul-2006 12:46 Office Visit On: 24-Jul-2006 11:11 Encounter Diagnosis: Cellulitis and abscess of leg, except foot (682.6) End: 24-Jul-2006 22:31 [facility] Office Visit On: 23-Jul-2006 14:42 Encounter Reason: Follow up for chronic medical issues - The patient feels well with minor complaints (arthritis) ,has decreased energy level and is sleeping poorly. Patient has been non-compliant with instructions. Curr End: 24-Jul-2006 7:32 ent medication use: no side effects and compliant with dosing regimen. Patient sleeps 6 hours per night. Nutrition: balanced diet ,no supplemental vitamins & iron and low salt diet. The medical issu es the patient is following up for include blood sugar issues ,gastric reflux ,high blood pressure and high cholesterol. blood pressure range : and weight :. Note for Follow up for chronic medical issu es: had 2 vessel Cabg in feb- sees Dr Chavez- and into cardiac rehab- sees Blake for shoulder arthritis- does see [facility]- bs taken daily- running 90s- has been having issues with anemia- saw a specialist at [facility] and had a ct of adrenals and was told ok - but has anemia- last count was 9- told he needed a bone marrow- he wants me to take this issue over- he is working on losing wt- and ex ercisng- he sees Dr. [facility] Anda at [facility]- and he has been diagnosed with highchol- gets b12 shots once a month now for b12 def- he gets bp checked routinely he doesnt ever have bps higher than 120/70Encounter Diagnosis: Cellulitis and abscess of leg, except foot (682.6), Benign essential hypertension (401.1), Other and unspecified hyperlipidemia (272.4), Anemia (285.9), B12 Deficiency (281.1), claudication, Erectile dysfunction (607.84) [facility] Office Visit On: 21-Jul-2006 12:21 Encounter Reason: Leg pain - The leg pain began suddenly and has been occurring for 5 days. The symptoms have been occurring in an increasing pattern. The symptoms are described as a burning sensation ,discomfort (sore) End: 21-Jul-2006 13:24 ,ache ,pain ,piercing pain and sharp, stabbing pain and are severe. The symptoms occur at night (all the time) and during the day. 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 There are no precipitating factors. There are no aggravating factors. Relief is provided by cold compress (mildly helps). Note for Leg pain: has had low grade temps- didnt take tempEncounter Diagnosis: Cellulitis and abscess of leg, except foot (682.6) [facility] Payers MedicareTRICARE FOR [facility], [employer] [place]; a guarantor
--- OUTSIDE RECORDS SUMMARY | 2018-07-10 09:20 | XMS RPT_ITS | Continuity of Care Document ---
:1945 Author Organization [facility] Address [address] [place] [address] Phone Care Team Providers Name Role Phone Gloria Alvarado DO Unavailable Dr. Fredi Rojas Unavailable [facility] DO , Dr. Andres Ceron Unavailable [facility], [facility] Unavailable Dr. Nabeel Khan Unavailable Gloria Alvarado DO A Unavailable Jv Salazar Unavailable Michoacano Germain MD Unavailable Kelly Bella Unavailable Unavailable Natalie Rocha Unavailable Unavailable Unavailable Unavailable Problems Name Dates Details Abnormal C-reactive protein (R79.89, 790.99) Status: Active Acute bronchitis (J20.9, 466.0) Status: Active Adenocarcinoma of lung (C34.90, 162.9) Comments: following with onc Status: Active Anemia, blood loss (D50.0, 280.0) Comments: significantly improvd Status: Active Arteriosclerosis of both carotid arteries (I65.23, 433.10) Status: Active Arthritis (M19.90, 716.90) Status: Active Atrial fibrillation (I48.91, 427.31) Status: Active B12 deficiency (E53.8, 266.2) Status: Active Benign essential hypertension (I10, 401.1) Comments: chronic stable-continue present regimen Status: Active BMI 40.0-44.9, adult (Z68.41, V85.41) Status: Active Cellulitis (L03.90, 682.9) Comments: resolving he is following up with podiatry Status: Active Chronic obstructive pulmonary disease, unspecified [...] for prostate cancer (Z12.5, V76.44) Status: Active Unspecified abnormal function study of cardiovascular system (794.30) Status: Active Upper GI bleed (K92.2, 578.9) Status: Active Urinary urgency (R39.15, 788.63) Status: Active Vitamin D deficiency (E55.9, 268.9) Status: Active Medications Name Dates Details ASPIRIN LOW DOSE, 81MG (Oral Tablet) 1 tab qd for 0 days Refills: 0 Ordered:07-May-2009 Hluszti WASTEWATER ENGINEER, ConnieActive Bactroban Nasal 2 % Nasal Ointment 1 (one) Application qd for 0 days Quantity: 1 {Tube} Refills: 1 Ordered:20-Apr-2018 Joce DRAPER, Gloria AFast DO, Gloria A Start : 20-Apr-2018 Active Comments:may use genericapply around nasal opening periumbilical and perirectal daily for 10 days Budesonide 0.25 MG/2ML Inhalation Suspension 2 (two) Milliliter Milliliter bid for 90 days Refills: 3 Ordered:06-Nov-2017 Joce DRAPER Gloria CARENast DO, Gloria A Start : 06-Nov-2017 Active Comments:11-06-17 [facility] insurance will only pay for bid Digoxin 250 MCG Oral Tablet qd (250 MCG) Active Comments:Dr. Jose Sarabia 80 MG Oral Tablet 1/2 Tablet daily for 30 days Quantity: 30 {Tablet} Refills: 0 Ordered:06-Oct-2017 Joce DRAPER Gloria AFast DO, Gloria A Start : 06-Oct-2017 Active DOCUSATE SODIUM, 100MG (Oral Capsule) 1 (one) Capsule daily for 30 days Quantity: 30 {Capsule} Refills: 0 Ordered:14-Dec-2014 Joce DRAPER Gloria FABIANmarge DO, Gloria A Start : 14-Dec-2014 Active DULoxetine HCl 60 MG Oral Capsule Delayed Release Particles 1 cap daily (60 MG) Active FENOFIBRATE, 145MG (Oral Tablet) 1 tab qd for 0 days Refills: 0 Ordered:19-Aug-2012 Livia Rocha Ferrous Sulfate 325 (65 Fe) MG Oral Tablet Delayed Release 1 (one) Tablet qd for 0 days Quantity: 30 {Tablet} Refills: 5 Ordered:06-Oct-2017 Joce DO Gloria AFast DO, Gloria A Start : 06-Oct-2017 Active FOLIC ACID, 1MG (Oral Tablet) 1 tab qd for 0 days Refills: 0 Ordered:07-May-2009 Hluszti WASTEWATER ENGINEER, ConnieActive Gabapentin 600 MG Oral Tablet 1 (one) Tablet qd for 30 days Quantity: 30 {Tablet} Refills: 0 Ordered:20-Jan-2017 Joce DRAPER Gloria AFast DO, Gloria A Start : 20-Jan-2017 Active ICAPS AREDS FORMULA (Oral Tablet) 1 tab bid Active Lasix 40 MG Oral Tablet 1 (one) Tablet qd for 0 days Quantity: 30 {Tablet} Refills: 3 Ordered:06-Oct-2017Gloria DO, Debra A Start : 06-Oct-2017 Active Metoprolol Tartrate 25 MG Oral Tablet 1 (one) Tablet qd for 0 days Quantity: 30 {Tablet} Refills: 3 Ordered:06-Oct-2017JeffJeff bird DOa A Start : 06-Oct-2017 Active NITROSTAT, 0.4MG (Sublingual Tablet Sublingual) 1 tab q 5 minutes up to 3 times (0.4 MG) Active Omeprazole 20 MG Oral Capsule Delayed Release 1 (one) Capsule qd for 0 days Quantity: 30 {Capsule} Refills: 6 Ordered:26-Dec-2017Gloria Gloria bird DO A Start : 26-Dec-2017 Active OXYGEN (Nasal [...] 30 days Quantity: 60 {Nebule} Refills: 3 Ordered:14-Apr-2014JeffJeff bird DOa A Start : 14-Apr-2014 Active Spiriva HandiHaler 18 MCG Inhalation Capsule 1 (one) Capsule q am for 90 days Quantity: 90 {Capsule} Refills: 3 Ordered:23-Feb-2018 Jeffa A Start : 23-Feb-2018 Active Vitamin B-12 1000 MCG Oral Tablet 1 tab daily (1000 MCG) Active Xarelto 10 MG Oral Tablet 1 (one) Tablet qd for 30 days Quantity: 30 {Tablet} Refills: 0 Ordered:20-Apr-2018 Gloria Alvarado DO, DO, Gloria A Start : 20-Apr-2018 Active AUGMENTIN, 875-125MG (Oral Tablet) 1 Tablet bid for 10 days Quantity: 20 {Tablet} Refills: 0 Ordered:19-May-2008 ScarletAshlee villalta CNP Start : 19-May-2008 End : 02-Jun-2008 [...] {Tablet} Refills: 0 Ordered:20-Apr-2018 Gloria Alvarado DO, DO, Debra A Start : 30-Dec-2017 End : 20-Apr-2018 Inactive Levaquin 500 MG Oral Tablet 1 (one) Tablet Tablet qd for 0 days Quantity: 10 {Tablet} Refills: 0 Ordered:21-Oct-2017 Kelly Bella Start : 03-Oct-2017 End : 21-Oct-2017 Inactive Lipitor 80 MG Oral Tablet 1 Tablet qd for 0 days Quantity: 30 {Tablet} Refills: 0 Ordered:21-Feb-2017 Kelly Bella Start : 30-Jan-2011 End : 21-Feb-2017 Inactive NIACIN FLUSH FREE, 500MG (Oral Capsule) 1 tab q hs for 0 days Refills: 0 Ordered:25-Mar-2014 Kelly Bella End : 25-Mar-2014 Inactive NIASPAN, 1000MG (Oral Tablet Extended Release) 1 tab bid for 0 days Refills: 0 Ordered:05-Oct-2010 Natalie Rocha End : 05-Oct-2010 Inactive Nystatin 541427 UNIT/GM External Powder 1 (one) Powder Powder bid for 0 days Quantity: 1 {Bottle} Refills: 2 Ordered:20-Apr-2018 Fast DO, Gloria AFast DO, Gloria A Start : 30-Dec-2017 End : 20-Apr-2018 Inactive Comments:large POTASSIUM CHLORIDE JAE CR, 20MEQ (Oral Tablet Extended Release) 1 Tablet ER bid for 30 days Quantity: 60 {Tablet_ER} Refills: 0 Ordered:09-Apr-2011 Fast DO, Gloria AFast DO, Gloria A Start : 30-Jan-2011 End : 01-Mar-2011 Inactive Potassium Chloride ER 10 MEQ Oral Tablet Extended Release 2 (two) Tablet ER qd for 90 days Quantity: 180 {Tablet} Refills: 0 Ordered:06-Oct-2017 Fast DO, Gloria AFast DO, Gloria A Start : 06-Oct-2017 End : 04-Jan-2018 Inactive Potassium Chloride ER 10 MEQ Oral Tablet Extended Release 2 (two) Tablet ER qd for 0 days Quantity: 360 {Tablet} Refills: 2 Ordered:06-Oct-2017 Fast DO, Gloria AFast DO, Gloria A Start : 06-Oct-2017 End [...] : 22-Nov-2016 Discontinued Comments:This order discontinued per [facility]. LISINOPRIL, 20MG (Oral Tablet) 1 QD for [...] 30-Aug-2008 Unspecified Diagnosis Status: Inactive as of 14-Dec-2014 Unspecified Diagnosis Status: Inactive as of 05-May-2009 Unspecified Diagnosis Status: Inactive as of 20-Jan-2017 Unspecified Diagnosis Status: Inactive as of 20-Jan-2017 Upper respiratory infection (J06.9, 465.9) Status: Resolved as of 02-Mar-2014 Visit for suture removal (Z48.02, V58.32) Status: Resolved as of 22-Mar-2013 Procedures Procedure Dates Details angioplasty 2013 Completed Comments: Dr Germain bilateral stents in legs 2012 Completed Stents Completed Comments: Dr Cheung Date Value Details 02-Mar-2018 Cardiology Visit Report Result: Comments: See Note; NOTES: [facility] [address] [place] [address] OFFICE VISIT Date of Service: 03/02/18 MR#: [id number] Acct: [id number] Name: JV DURHAM JrAxel Rep #: [id number] : 1945 Provider: Michoacano Germain MD Age/Sex: 72/M Location: [facility] Status: Signed HPI HPI Chief Complaint: Routine f/u Details: HPI PCP: Dr. Anastasia Avlarado This is 72-year- old male who presents [...] and left common iliac stent placement at [facility]. 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 Is patient in pain?: No Allergies No Known Allergies Allergy (Verified 03/02/18 15:21) Medications Fenofibrate [Tricor] 145 mg PO DAILY [History Confirmed 02/25/18] Folic Acid 1 mg PO DAILY@1200 05/06/13 [History Confirmed 02/25/18] Tiotropium [place] [Spiriva 18 MCG] 1 puff INHALATION DAILY 05/06/13 [History Confirmed 02/25/18] D uloxetine HCl 60 mg PO QHS 12/04/16 [History Confirmed 02/25/18] Pramipexole Di- HCl [Mirapex] [...] mg PO DAILY 03/02/18 [History Confirmed 03/02/18] PFS Medical History GI bleed (Acute) Chronic atrial fibrillation (Chronic) port placement (Acute) Secondary pulmonary arterial hypertension (Winderman shruthi) Atherosclerosis of coronary artery of [place] heart without angina pectoris (Chronic) Primary malignant [...] Con st: Positive for other (Was in [facility] in December for cellulitis); negative for fatigue, [...] ischemia 2. Atherosclerosis of coronary artery of [place] heart without angina pectoris I25.10 CABG x 2 HERRERA-LAD, SVG-OM 02/14/2006 FLG-JCC-RIYT anastomosis-LAD w/ Taxus 2.75 x 8 mm and POBA -PDA 12/23/2006 Plan . 2. Coronary artery disease: No exertional anginal symptoms at this time. His most recent catheterization was in 2016 which showed severe three-vessel coronary disease, widely [...] fibrillation I48.2 Atherosclerosis of coronary artery of [place] heart without angina pectoris I25.10 HEBER (obstructive sleep apnea) G47.33 Coding Level of Care Code Off vis,est,level 3 Diagnoses Chronic atrial fibrillation I48.2 Atherosclerosis of coronary artery of [place] heart without angina pectoris I25.10 HEBER (obstructive sleep apne a) G47.33 03/02/18 1538 <Electronically signed by Michoacano Germain MD> Date Michoacano Germain MD Cosigner Signature: Date ___ (if applicable) CC: Gloria Alvarado DO 27-Jan-2018 Oncology Visit Report Result: Comments: See Note; NOTES: [facility] [place] [address] OFFICE VISIT Date of Service: 01/27/18 1435 MR#: [id number] Acct: [id number] Name: JV DURHAM Jr. 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 Rep #: [id number] : 1945 M 72 From: Glen Stevenson MD PCP: Gloria Alvarado DO Status: REG CLI Study: Abdomen WITH IV Contrast Date of Exam: 01/13/18 Exam# [id number] Ordering Dr: Marybeth Millan MD: CT ABDOMEN [...] CC: Gloria Alvarado DO; Marybeth Millan MD Dental Ceramist Assistant: Signed 13-Jan-2018 Chest WITH Contrast Result: Comments: See Note; NOTES: [facility] Imaging Services [address] [place] [address] Chest WITH Contrast MR#: [id number] Acct: [id number] Name: JV DURHAM Jr. Rep #: [id number] : 1945 M 72 From: Glen Stevenson MD PCP: Gloria Alvarado DO Status: REG CLI Study: Chest WITH Contrast Date of Exam: 01/13/18 Exam# [id number] Ordering Dr: Marybeth Millan MD STUDY: CT [...] CC: Gloria Alvarado DO; Marybeth Millan MD Dental Ceramist Assistant: Signed 21-Dec-2017 Tibia AND Fibula 2 Views Result: Comments: See Note; NOTES: [facility] Imaging Services [address] [place] [address] Tibia AND Fibula 2 Views MR#: [id number] Acct: [id number] Name: JV DURHAM JrAxel Rep #: [id number] : 1945 M 72 From: Gaurav Douglas MD PCP: Gloria Alvarado DO Status: REG ER Study: Tibia AND Fibula 2 Views Date of Exam: 12/21/17 Exam# [id number] Ordering Dr: Peace Gallardo MD ADRIAN DY: X-RAY - LEFT TIBIA AND FIBULA [...] CC: Peace Gallardo MD; Gloria Alvarado DO Dental Ceramist Assistant: Signed 21-Dec-2017 Tibia AND Fibula 2 Views Result: Comments: See Note; NOTES: [facility] Imaging Services [address] [place] [address] Tibia AND Fibula 2 Views MR#: [id number] Acct: [id number] Name: JV DURHAM JrAxel Rep #: [id number] : 1945 M 72 From: Gaurav Douglas MD PCP: Gloria Alvarado DO Status: REG ER Study: Tibia AND Fibula 2 Views Date of Exam: 12/21/17 Exam# [id number] Ordering Dr: Peace Gallardo MD [facility] DY: X-RAY - LEFT TIBIA [...] CC: Peace Gallardo MD; Gloria Alvarado DO Dental Ceramist Assistant: Signed 21-Dec-2017 Chest 1 View (Portable) Result: Comments: See Note; NOTES: [facility] Imaging Services [address] [place] [address] Chest 1 View (Portable) MR#: [id number] Acct: [id number] Name: JV DURHAM Jr. Rep #: [id number] : 1945 72 From: Chava Latham MD PCP: Gloria Alvarado DO Status: REG ER Study: Chest 1 View (Portable) Date of Exam: 12/21/17 Exam# [id number] Ordering Dr: Peace Gallardo MD STUD Y: [...] CC: Peace Gallardo MD; Gloria Alvarado DO Dental Ceramist Assistant: Signed 19-Dec-2017 Chest PA and Lateral Result: Comments: See Note; NOTES: [facility] Imaging Services [address] [place] [address] Chest PA and Lateral MR#: [id number] Acct: [id number] Name: JV DURHAM Jr. Rep #: [id number] : 1945 M 72 From: Jaime Milligan MD PCP: Gloria Alvarado DO Status: REG CLI Study: Chest PA and Lateral Date of Exam: 12/19/17 Exam# [id number] Ordering Dr: Jv Salazar MD STUDY: X-RAY [...] support , Fax CC: Gloria Alvarado DO; Jv Salazar MD Dental Ceramist Assistant: Signed 06-Dec-2017 Cardiology Visit Report Result: Comments: See Note; NOTES: [facility] [address] [place] [address] OFFICE VISIT Date of Service: 10/24/17 MR#: [id number] Acct: [id number] Name: JV DURHAM Jr. Rep #: [id number] : 1945 Provider: Michoacano Germain MD Age/Sex: 72/M Location: [facility] Status: Signed HPI HPI Details: JV [...] PO DAILY@0800 05/06/13 [History Confirmed 10/24/17] Tiotropium [place] [Spiriva 18 MCG] 1 puff INHALATION DAILY [...] hypertension (Chronic) Atherosclerosis of coronary artery of [place] heart without angina pectoris (Chronic) Primary malignant [...] of Care Code Off vis,est,level 3 12/06/17 3434 <Electronically signed by Michoacano Germain MD&#62 ; Date Michoacano Germain MD Cosigner Signature: Date (if applicable) CC: Gloria Alvarado DO 04-Dec-2017 Stress Test Echo w/o Contrast Result: Comments: See Note; NOTES: [facility] Cardiovascular Services [address] [place] [address] Stress Test Echo w/o Contrast MR#: [id number] Acct: [id number] Name: JV DURHAM Jr. Rep #: [id number] : 1945 72 From: Michoacano Germain MD [...] poor echo windows. No complications. Ordering Physician: Mcihoacano Germain Referring Physician: Landon Germain Performed By: Vanda Christian RDCS, RVT 12/04/17 1653 Date Michoacano Germain MD CC: Michoacano Germain MD; Gloria Alvarado DO Date Dictated: 12/04/17 1055 Date Transcribed: 12/04/171652 Dental Ceramist Assistant: Signed 04-Dec-2017 Downtime Report Result: Comments: See Note; NOTES: [facility] Medical Records Department [address] [place] [address] Downtime Report MR#: [id number] Acct: [id number] Name: JV DURHAM Jr. Rep #: [id number] : 1945 72 From: Morgan Ro PCP: Gloria Alvarado DO Status: REG CLI This patient was seen during an EMR downtime November 17, 2017 - November 24, 2017. This patient may have a combination of paper and electronic documentation or all paper documentation. All documentation is viewable within the e-chart portion of [employer] for each patient visit. 26-Nov-2017 Carotid Duplex Ultrasound Result: Comments: See Note; NOTES: [facility] Cardiovascular Services [address] [place] [address] Carotid Duplex Ultrasound 11/24/17 1244 MR#: [id number] Acct: [id number] Name: JV JONES Jr. Rep #: [id number] : 1945 72 From: Jamie Cheung MD Attending Dr: Gloria Alvarado DO Status: REG CLI Ordering Dr: Michoacano Germain MD Date: 11/24/17 Location: [facility] Sex: M C Admitted: Reason For [...] the left vertebral artery. Procedure Carotid Duplex 80544. Exam performed in department. Interpretation Summary Mild (<50%) stenosis right extracranial internal carotid. Mild (<50%) stenosis left extracranial internal carotid. Flow within the vertebral arteries is antegrade bilaterally. Ordering Physician: Michoacano Germain Referring Physician: Gloria Alvarado Performed By: Sumi Morris, MENDEZ, RVT 11/26/17 1208 Date Jamie Cheung MD CC: Michoacano Germain MD; Gloria Alvarado DO Date Dictated: 11/24/17 1244 Date Transcribed: 11/26/17 1208 Dental Ceramist Assistant: Signed 24-Oct-2017 Cardiology Visit Report Result: Comments: See Note; NOTES: [facility] [address] [place] [address] OFFICE VISIT Date of Service: 10/24/17 MR#: [id number] Acct: [id number] Name: JV DURHAM Jr. Rep #: [id number] : 1945 Provider: Michoacano Germain MD Age/Sex: 72/M Location: [facility] Status: Signed HPI HPI Chief Complaint: [...] and left common iliac stent placement at [facility]. Heart cath from April 2013 showed [...] stools for 3 days. He went to [facility] ER where his hemoglobin was found to be 5. He was transferred [facility] where catarina law was transfused 4 units of PRBCs, and [...] PO DAILY@0800 05/06/13 [History Confirmed 10/24/17] Tiotropium [place] [Spiriva 18 MCG] 1 puff INHALATION DAILY [...] hypertension (Chronic) Atherosclerosis of coronary artery of [place] heart without angina pectoris (Chronic) 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 (Acu te) Chemotherapy induced neutropenia (Acute) Anemia (Acute) COPD (chronic obstructive pulmonary disease) (Acute) Dyspnea (Acute) Diabetes (Acute) Neuropathy (Acute) Arthritis (Acute) Obesity (Acute) Alc ohol dependence (Acute) GERD (gastroesophageal reflux disease) (Acute) DJD (degenerative joint disease) (Acute) Vascular disease (Acute) Renal disease (Acute) Macular degeneration (Acute) Arrhythmia (Ac aixa) Migraine (Acute) Memory loss (Acute) Hypotestosteronism (Acute) [...] Plan 1. Atherosclerosis of coronary artery of [place] heart without angina pectoris I25.10 CABG x 2 HERRERA-LAD, SVG-OM 02/14/2006 FHS-NPC-SCPO anastomosis-LAD w/ Taxus 2.75 x 8 mm [...] 3 Diagnoses Atherosclerosis of coronary artery of [place] heart without angina pectoris I25.10 Chronic atrial fibrillation I48.2 Coding Level of Care Code Off vis,est,level 3 Diagnoses Atherosclerosis of coronary artery of [place] heart without angin a pectoris I25.10 Chronic atrial fibrillation I48.2 10/24/17 1350 <Electronically signed by Michoacano Germain MD> Date Michoacano Lanierigner Signature: Date (if applicable) CC: 23-Oct-2017 Oncology Visit Report Result: Comments: See Note; NOTES: [facility] [place] [address] OFFICE VISIT Date of Service: 10/23/17 1043 MR#: [id number] Acct: [id number] Name: JV DURHAM Jr. 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 Stressed importance of contin ued focus on adequate nutrition and fluid intake and daily exercise and abstinence from tobacco products. Psychosocial AND spiritual health- He is well supported by spouse of 50 years and describes a g [employer] support system by way of children and [...] studies as previously planned. 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 [address] End of Treatment Summary Date of Service: 10/16/17 1035 MR#: [id number] Acct: [id number] Name: JV LAND Merary Greer Rep #: [id number] : 1945 From: Salina Díaz NP-C Age/Sex: 72/M Location: [facility] Status: Signed General [...] Other comments:: Prepared by Giovanni Díaz, MSN, LOG CUT OFF SAWYER-C, AOCNP. Delivered on 10/23/17 10/23/17 1157 <Electronically si gned by Salina MONIQUE> Date Salina MONIQUE Cosigner Signature: Date (if applicable ) CC: Michoacano Germain MD; Gloria Alvarado DO; Josiah Davis MD; Jv Salazar MD -Oct-2017 Oncology Visit Report Result: Comments: See Note; NOTES: [facility] [address] [place] [address] OFFICE VISIT Date of Service: 10/15/17 1046 MR#: [id number] Acct: [id number] Name: JV DURHAM Merary Greer Rep #: [id number] : 1945 From: Marybeth Millan MD Age/Sex: [...] iron and an acid suppressant. Reports from [facility] requested. - Past Medical/ Social History Past [...] DO Referring Provider: Marybeth Millan MD 10/15/17 7590 <Electronically signed by Marybeth Millan MD> Date Mansour Lorena calloway MD Cosigner Signature: Date (if applicable) CC: Gloria Joce DRAPER 06-Oct-2017 Chest PA and Lateral Result: Comments: See Note; NOTES: [facility] Imaging Services [address] [place] [address] Chest PA and Lateral MR#: [id number] Acct: [id number] Name: JV DURHAM Jr. Rep #: [id number] : 1945 M 72 From: Kee Burkett MD PCP: Gloria Alvarado DO Status: REG CLI Study: Chest PA and Lateral Date of Exam: 10/06/17 Exam# [id number] Ordering Dr: Gloria Alvarado DO STUDY: X-RAY [...] Service support , CC: Gloria Alvarado DO Dental Ceramist Assistant: Signed 05-Oct-2017 12 Lead Electrocardiogram Result: Comments: See Note; NOTES: [facility] Cardiovascular Services [address] [place] [address] 12 Lead EKG 09/29/17 1619 MR#: [id number] Acct: [id number] Name: JV DURHAM Jr Rep #: [id number] : 1945 72 From: Michoacano Germain MD [...] Abnormal ECG Confirmed by MICHOACANO GERMAIN ([id number]), assistant production editor ALEXIS RO ([id number]) on 10/02/2017 2:39:03 PM Referred By: Gloria Alvarado Confirmed By:MICHOACANO GERMAIN 10/02/17 1439 Date Michoacano Germain MD CC: Gloria Alvarado DO; Alma Delia Zavala DO Signed 29-Sep-2017 Emergency Department Summary Result: Comments: See Note; NOTES: [facility] Medical Records Department [address] [place] [address] Emergency Department Summary 09/29/17 1845 MR#: [id number] Acct: [id number] Name: JV DURHAM Jr. Rep #: [id number] : 1945 72 From: Alma Delia Zavala [...] do not have GI coverage available at [facility] therefore lyubov kumar will be transferred to [facility].] Disposition: [Transfer] Impression: [Anemia Upper GI hemorrhage Indeterminant troponin elevation] This note was generated with [employer] software. It may contain incorrect words, spelling, and punctuation that were not noted in review of the chart prior to signing ED Disposition - Plan for ED Patient: Chief Complaint: Shortness of Breath Referrals: Gloria Alvarado DO [Primary Care Provider] - What to do if you have Problems For any increased pain, shortness of breath, bleeding, nausea or vomiting, chest pain, or any unexpected p roblems, contact your Primary Care Provider. Call [facility] ([phone]) or report to the closest Emergency Room. Call 911 if necessary. 09/29/17 1850 <Electronically signed by Alma Delia Zavala DO> Date Alma Delia Zavala DO Cosigner Signature (If Indicated): Date CC: Gloria Alvarado DO 29-Sep-2017 Chest 1 View (Portable) Result: Comments: See Note; NOTES: [facility] Imaging Services [address] [place] [address] Chest 1 View (Portable) MR#: [id number] Acct: [id number] Name: MARVAJV Merary Greer Rep #: [id number] : 1945 M 72 From: Anastasia Fonseca MD PCP: Gloria Alvarado DO Status: REG ER Study: Chest 1 View (Portable) Date of Exam: 09/29/17 Exam# [id number] Ordering Dr: Alma Delia Zavala DO STUDY: [...] Gloria Alvarado DO; Alma Delia Zavala DO Dental Ceramist Assistant: Signed 25-Sep-2017 Cardiology Visit Report Result: Comments: See Note; NOTES: [facility] [address] [place] [address]. [address] [place] [address] OFFICE VISIT Date of Service: 09/25/17 MR#: [id number] Acct: [id number] Name: JV DURHAM Jr. Rep #: [id number] : 1945 Provider: Michoacano Germain MD Age/Sex: 72/M Location[place] [facility] Status: Signed HPI HPI Chief Complaint: [...] and left common iliac stent placement at [facility]. Heart cath from April 2013 showed [...] PO BID 05/06/13 [History Confirmed 09/25/17] Tiotropium [place] [Spiriva 18 MCG] 1 puff INHALATION DAILY [...] mg PO QHS 09/25/17 [History Confirmed 09/25/17] [facility] Medical History (Reviewed @ 15:16 by Rach Butcher) Secondary pulmonary arterial hypertension (Chronic) Atherosclerosis of coronary artery of [place] heart without angina pectoris (Chronic) 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 (Acute) Chemotherapy induced neutropenia (Acute) Anemia (Acute) COPD (chronic obstructive pulmonary disease) (Acute) Dyspnea (Acute) Diabetes (Acute) Neuropathy (Acute) Arthritis (Ac aixa) Obesity (Acute) Alcohol dependence (Acute) GERD (gastroesophageal [...] Plan 1. Atherosclerosis of coronary artery of [place] heart without angina pectoris I25.10 CABG x 2 HERRERA-LAD, SVG-OM 02/14/2006 VPT-[id number]-[id number] anastomosis-LAD w/ Taxus 2.75 x 8 mm [...] Pt no longer taking Follow Up +6m (Germain) +1 week (BP Check.) +1 month (Germain or FILLING AND PACKING SUPERVISOR) Coding Level of Care Code Off vis,e st,level 3 Diagnoses Atherosclerosis of coronary artery of [place] heart without angina pectoris I25.10 Arrhythmia I49.9 Coding Level of Care Code Off vis,est,level 3 Diagnoses Atherosclerosis of cor onary artery of [place] heart without angina pectoris I25.10 Arrhythmia I49.9 09/25/17 1605 <Electronically signed by Michoacano Germain MD> Date ____ Michoacano Germain MD Cosigner Signature: Date (if applicable) CC: Gloria Alvarado DO 17-Sep-2017 Oncology Visit Report Result: Comments: See Note; NOTES: [facility] [address] [place] [address] OFFICE VISIT Date of Service: 09/17/17 1028 MR#: [id number] Acct: [id number] Name: JV DURHAM Jr. Rep #: [id number] : 1945 From: Marybeth Millan MD Age/Sex: [...] Visit Report Result: Comments: See Note; NOTES: [facility] [address] [place], [place] [address] [place] [address] OFFICE VISIT Date of Service: 09/10/17 0958 MR#: [id number] Acct: [id number] Name: MARVAJV Merary Greer Rep #: [id number] : 1945 From: Salina MONIQUE Age/Sex: 71/M [...] final cycle of carboplatin and Alimta. Salina Díaz MSN, LOG CUT OFF SAWYER-C, AOCNP Medications: Presc riptions This Visit Medication [...] Visit Report Result: Comments: See Note; NOTES: [facility] [address] [place] [address]. [place] [address] OFFICE VISIT Date of Service: 09/01/17 1306 MR#: [id number] Acct: [id number] Name: MARVAJV Merary Greer Rep #: [id number] : 1945 From: Salina MONIQUE Age/Sex: 71/M [...] malignancy. Due to limited lung reserve the [facility] went straight to surgery and on 05/16/2017 [...] epistaxis yesterday which prompted p resentation to [facility] ED for management. Right nare was packed. [...] Hemoptysis, Wheezing Gastrointestinal:: Reports: Constipation - LBM 3/17/18. Denies: Abdominal pain, Nausea, Vomiting, Rochelle rrhea, [...] hold Xarelto and ASA, agreed upon between tip puncher, Dr. Germain. Repeat CBC in 3 days. [...] peripheral neuropathy (predates chemotherapy). Salina Díaz, MSN, LOG CUT OFF SAWYER-C, AOCNP Medications: Prescriptions This Visit Medication Instructi [...] 09/01/17 1455 < Electronically signed by Salina Díaz NP-C> Date Salina BARKERC Cosigner Signature: Date __ (if applicable) CC: Michoacano Germain MD; Derek Prescott MD 31-Aug-2017 Emergency Department Summary Result: Comments: See Note; NOTES: [facility] Medical Records Department [address] [place] [address] Emergency Department Summary 08/31/17 1336 MR#: [id number] Acct: [id number] Name: JV DURHAM Rep #: [id number] : 1945 71 From: Teresa Sneed MD [...] as above This note was generated with Feedtrace dictation software. It may contain incorrect words, [...] Primary Care Provider. Call [facility] ([phone]) or report to the closest Emergency Room. Call 911 if necessary. 08/31/17 1601 <Electronically signed by Teresa Sneed MD> Date Teresa Sneed MD Cosigner Signature (If Indicated): Date CC: Gloria Alvarado DO 31-Aug-2017 Discharge Instruction Result: Comments: See Note; NOTES: [facility] Medical Records Department [address] [place] [address] Discharge Instruction 08/31/17 1350 MR#: [id number] Acct: [id number] Name: JV DURHAM Rep #: [id number] : 1945 71 From: Teresa Sneed MD [...] your Primary Care Provider. Call [facility] ([phone]) or report to the closest Emergency Ro om. Call 911 if necessary. 08/31/17 1351 <Electronically signed by Teresa Sneed MD> Date Teresa michele (If Indicated): Date CC: Gloria Alvarado DO 20-Aug-2017 Oncology Visit Report Result: Comments: See Note; NOTES: [facility] [address] [place] [address] OFFICE VISIT Date of Service: 08/20/17 1021 MR#: [id number] Acct: [id number] Name: JV DURHAM Rep #: [id number] : 1945 From: Marybeth Millan MD Age/Sex: [...] signed by Marybeth Millan MD> Date Shaquille karime Millan MD Cosigner Signature: Date (if applicable) CC: 14-Aug-2017 Cardiology Visit Report Result: Comments: See Note; NOTES: [facility] [address] [place] [address]. [address] [place] [address] OFFICE VISIT Date of Service: 08/14/17 MR#: [id number] Acct: [id number] Name: JV DURHAM Rep #: [id number] : 1945 Provider: Michoacano Germain MD Age/Sex: 71/M Location[place] [facility] Status: Signed HPI HPI Chief Complaint: [...] and left common iliac stent placement at [facility]. Heart cath from April 2013 showed [...] PO BID 05/06/13 [History Confirmed 08/06/17] Tiotropium [place] [Spiriva 18 MCG] 1 puff INHALATION DAILY [...] 325 mg PO 08/14/17 [History Confirmed 08/14/17] [facility] Medical History (Reviewed @ 13:07 by Rach Butcher) Secondary pulmonary arterial hypertension (Chronic) Atherosclerosis of coronary artery of [place] heart without angina pectoris (Chronic) 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 (Acute) Chemotherapy induced neutropenia (Acute) Anemia (Acute) COPD (chronic obstructive pulmonary disease) (Acute) Dyspnea (Acute) Diabetes (Acute) Neuropathy (Acute) Arthritis (Ac aixa) Obesity (Acute) Alcohol dependence (Acute) GERD (gastroesophageal [...] Plan 1. Atherosclerosis of coronary artery of [place] heart without angina pectoris I25.10 CABG x 2 HERRERA-LAD, SVG-OM 02/14/2006 FTC-LIL-ODPB anastomo sis-LAD w/ Taxus 2.75 x 8 mm and POBA-PDA 12/23/2006 Plan 1. Coronary artery disease: No exertional anginal symptoms at this time. He is currently convalescing from recent lung cancer surgery and [facility] chemotherapy. I recommended that he get [...] months. This note was generated using a uParts recognition system and there may be incorrect words, spelling or punctuation that were not noted when reviewing the office note prior to saving. Plan Detail Other Orders Orders: Follow Up 6 Months (N ewjosue) Coding Level of Care Code Off vis,est,level 3 Diagnoses Atherosclerosis of coronary artery of [place] heart without angina pectoris I25.10 Atrial fibrillation I48.91 Coding Level of Care Code Off vis,est,level 3 Diagnoses Atherosclerosis of coronary artery of [place] heart without angina pectoris I25.10 Atrial fibrillation I48.91 08/14/17 1335 <Electronically signed by Michoacano salas MD> Date Michoacano Germain MD Cosigner Signature: Date (if applicable) CC: 08-Jul-2017 Operative Report Result: Comments: See Note; NOTES: [facility] Medical Records Department [address] [place] [address] Operative Report 07/08/17 1259 MR#: [id number] Acct: [id number] Name: MARTA DURHAM Rep #: [id number] : 1945 71 From: Michoacano Alcala MD PCP: Gloria Alvarado DO Status: REG [facility] Y Location: [place] [address] Problem List (1) Cancer of upper lobe [...] Alcala MD CC: Michoacano Alcala MD; Gloria Millan MD Signed 08-Jul-2017 Chest 1 View (Portable) Result: Comments: See Note; NOTES: [facility] Imaging Services [address] [place] [address] Chest 1 View (Portable) MR#: [id number] Acct: [id number] Name: JV DURHAM Rep #: [id number] : 1945 M 71 From: Navdeep Canseco MD PCP: Gloria Alvarado DO Status: [facility] Study: Chest 1 View (Portable) Date of Exam: 07/08/17 Exam# [id number] Ordering Dr: Michoacano Alcala MD STUDY: X-RAY [...] Navdeep Canseco MD at 14:02 EST Tel [phone], Service support , CC: Michoacano Alcala MD; Gloria Alvarado DO Dental Ceramist Assistant: Signed 07-Jul-2017 Surgery Visit Report Result: Comments: See Note; NOTES: [place] [address] OFFICE VISIT Date of Service: 06/30/17 MR#: [id number] Acct: [id number] Name: JV LAND Rep #: [id number] : 1945 Provider: Michoacano Alcala MD Age/Sex: 71/M Location: [facility] Status: Signed Intake Vital Signs06/30/17 Height 5 ft 10 in 06/30/17 Weight: 300 lb Intake Vi sit 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: No Is patient in pain?: No [...] PO BID 05/06/13 [History Confirmed 07/04/17] Tiotropium [place] [Spiriva 18 MCG] 1 puff INHALATION DAILY [...] mg PO BID 07/04/17 [History Confirmed 07/04/17] [facility] Medical History Lung nodule (Acute) 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 Patient ca nnot tolerate cis-naknek based combination due to excessive toxicities expected with his significant chronic medical problems and therefore I advice 4 cycles of adjuvant carboplatin and Alimta with ma ximum support to include steroids, folic acid and B12 supplement, and primary prophylaxis with Neulasta. Patient was seen was his impression and recommendation discussed and he consented to therap y. Formal teaching session with MARBLE POLISHER HAND will be scheduled in central venous access requested. Primary Care Provider: Gloria Alvarado DO Referring Provider: Marybeth Millan MD 06/23/17 1432 <[facility] signed by Marybeth Millan MD> Date Marybeth Millan MD Cosigner Signature: Date (if ap plicable) CC: Gloria Alvarado DO; Marybeth Millan MD Signed 04-Apr-2017 PET/CT Tumor Base -Thigh Init Result: Comments: See Note; NOTES: [facility] Imaging Services [address] [address] PET/CT Tumor Base -Thigh Init MR#: [id number] Acct: [id number] Name: JV DURHAM JR Re p #: [id number] : 1945 M 71 From: Glen Pickard DO PCP: Gloria Alvarado DO Status: REG CLI Study: PET/CT Tumor Base -Thigh Init Date of Exam: 04/07/17 Exam# [id number] Ordering Dr: Jv Salazar MD EXAMINATION: FDG [...] associated with hyperplasia of the hematopoietic marrow. (Georgina, AJR 180:669, 2003). Electronic Signature Glen Pickard D.O. Electronically Signed: Glen Pickard DO 4 at 23:22 EDT Tel , Service support , CC: Gloria Alvarado DO; Jv Salazar MD Dental Ceramist Assistant: Signed 18-Mar-2017 CTA Chest W/WO Contrast Result: Comments: See Note; NOTES: [facility] Imaging Services [address] [place] [address] CTA Chest W/WO Contrast MR#: [id number] Acct: [id number] Name: JV DURHAM JR Rep #: [id number] : 1945 M 71 From: Derek Ariza MD PCP: Gloria Alvarado DO Status: REG CLI Study: CTA Chest W/WO Contrast Date of Exam: 03/18/17 Exam# [id number] Ordering Dr: Jv Salazar MD STUDY: CTA [...] CC: Gloria Alvarado DO; Jv Salazar MD Dental Ceramist Assistant: Signed 12-Mar-2017 Chest PA and Lateral Result: Comments: See Note; NOTES: [facility] Imaging Services [address] [place] [address] Chest PA and Lateral MR#: [id number] Acct: [id number] Name: JV DURHAM JR Rep #: [id number] : 1945 M 71 From: Helene Augustin MD PCP: Gloria Alvarado DO Status: REG CLI Study: Chest PA and Lateral Date of Exam: 03/12/17 Exam# [id number] Ordering Dr: Jv Salazar MD STUDY: X-RAY [...] CC: Gloria Alvarado DO; Jv Salazar MD Dental Ceramist Assistant: Signed 15-Jan-2017 Knee 4 or More Views Result: Comments: See Note; NOTES: [facility] Imaging Services [address] [place] [address] Knee 4 or More Views MR#: [id number] Acct: [id number] Name: JV DURHAM JR Rep #: [id number] : 1945 M 71 From: Marino Danielson MD PCP: Gloria Alvarado DO Status: REG CLI Study: Knee 4 or More Views Date of Exam: 01/15/17 Exam# [id number] Ordering Dr: Gloria Alvarado DO STUDY: X-RAY [...] Service support , CC: Gloria Alvarado DO Dental Ceramist Assistant: Signed 15-Jan-2017 Ribs Uni Min 3V w/PA Chest Result: Comments: See Note; NOTES: [facility] Imaging Services [address] [place] [address] Ribs Uni Min 3V w/PA Chest MR#: [id number] Acct: [id number] Name: JV DURHAM JR Rep # : [id number] : 1945 M 71 From: Marino Danielson MD PCP: Gloria Alvarado DO Status: REG CLI Study: Ribs Uni Min 3V w/PA Chest Date of Exam: 01/15/17 Exam# [id number] Ordering Dr: Gloria Alvarado DO STUD Y: [...] Service support , CC: Gloria Alvarado DO Dental Ceramist Assistant: Signed 02-Jan-2017 Operative Report Result: Comments: See Note; NOTES: [facility] Medical Records Department [address] [place] [address] Operative Report 01/02/17 1010 MR#: [id number] Acct: [id number] Name: MARTA DURHAM JR Rep #: [id number] : 1945 71 From: Suresh Storm DO PCP: Gloria Alvarado DO Status: DEP CLI Y Location: [facility] Operative Report (Blank) Date of Procedure: 01/02/17 CONSCIOUS SEDATION REPORT DA TE OF SERVICE: January 02, 2017 BRIEF HISTORY OF PRESENT ILLNESS: The patient is a 71-year-old male who presents to [facility] for an elective outpatient cardioversion due to [...] sinus rhythm. The patient was monitored until 0847, at which time he reached his baseline mental status and function. The patient tolerated the procedure well. COMPLICATIONS: None ESTIMATED BLOOD LOSS: None RECOMMENDATIONS: Okay to recover in usual fashion. 01/02/17 1015 <Electronically signed by Suresh Storm DO> Date Suresh Storm DO CC: Gloria Alvarado DO; Suresh Storm D.O. Signed 02-Jan-2017 Operative Report Result: Comments: See Note; NOTES: [facility] Medical Records Department [facility] [place] [address] Operative Report 01/02/17 1005 MR#: [id number] Acct: [id number] Name: MARTA DURHAM Rep #: [id number] : 1945 71 From: Michoacano Germain MD PCP: Gloria Alvarado DO Status: DEP CLI Y Location: [facility] Operative Report (Blank) Date of Procedure: [...] DJN 0 01/02/17 1008 <Electronically signed by Michaocano Germain MD> Date Michoacano Germain MD CC: Michoacano Germain MD; Gloria Alvarado DO Signed 23-Dec-2016 Chest PA and Lateral Result: Comments: See Note; NOTES: [facility] Imaging Services [address] [place] [address] Verdana 4d Chest PA and Lateral MR#: [id number] Acct: [id number] Name: JV DURHAM Rep #: [id number] : 1945 M 71 From: Jerman Hood PCP: Gloria Alvarado DO Status: REG CLI Study: Chest PA and Lateral Date of Exam: 12/23/16 Exam# [id number] Ordering Dr: Shon Morris MARBLE POLISHER HANDSamuel STUDY: X-RAY CHEST REASON FOR EXAM: Male, [...] , CC: MALI Morris; Gloria Alvarado DO Dental Ceramist Assistant: Signed 02-Dec-2016 Carotid Duplex Ultrasound Result: Comments: See Note; NOTES: [facility] Cardiovascular Services [address] [place] [address] Carotid Duplex Ultrasound 11/29/16 1025 MR#: [id number] Acct: [id number] Name: KELLY JV MORENO JR Rep #: [id number] : 1945 71 From: Jamie Cheung MD Attending Dr: Gloria Alvarado DO Status: REG CLI Ordering Dr: Gloria Alvarado DO Date: 11/29/16 Location: [facility] Sex: M C Admitted: Re ason For [...] the left vertebral artery. Procedure Carotid Duplex 07673. Technically difficult due to pts irregular breathing [...] Dictated: 11/29/16 1025 Date Transcribed: 12/02/16 1222 Dental Ceramist Assistant: Signed 22-Nov-2016 Chest PA and Lateral Result: Comments: See Note; NOTES: [facility] Imaging Services [address] [place] [address] Verdana 4d Chest PA and Lateral MR#: [id number] Acct: [id number] Name: JV DURHAM JR Rep #: [id number] : 1945 M 71 From: Antoine Dawn DO PCP: Gloria Alvarado DO Status: REG CLI Study: Chest PA and Lateral Date of Exam: 11/22/16 Exam# [id number] Ordering Dr: Gloria Alvarado DO STUDY: X-R [...] Service support , CC: Gloria Alvarado DO Dental Ceramist Assistant: Signed 22-Nov-2016 Cerv Spine 4 or 5 Views Result: Comments: See Note; NOTES: [facility] Imaging Services [address] [place] [address] Verdana 4d Cerv Spine 4 or 5 Views MR#: [id number] Acct: [id number] Name: JV DURHAM JR Rep #: [id number] : 1945 M 71 From: Antoine Dawn DO PCP: Gloria Alvarado DO Status: REG CLI Study: Cerv Spine 4 or 5 Views Date of Exam: 11/22/16 Exam# [id number] Ordering Dr: Gloria Alvarado DO STUD Y: [...] Service support , CC: Gloria Alvarado DO Dental Ceramist Assistant: Signed 18-Nov-2016 Echo, Complete w/ Contrast Result: Comments: See Note; NOTES: [facility] Cardiovascular Services [address] [place] [address] Echo Complete W/ Contrast 11/15/16 0954 MR#: [id number] Acct: [id number] Name: JV JONES JR Rep #: [id number] : 1945 71 From: Michoacano Germain MD Attending Dr: Leo Reyes NP Status: REG CLI Ordering Dr: Leo Reyes Date: 11/15/16 Location: [facility] Sex: M C Admitted: Beverley yap [...] appears to be in atrial fibrillation. Ordering Physicjuany n: Leo Reyes Referring Physician: Gloria Alvarado D.O. Performed By: Jj Munoz RCS 11/18/16 0942 Date Michoacano Germain MD CC: Gloria Alvarado DO; Leo Reyes MARBLE POLISHER HAND Date Dictated: 11/15/16 0954 Date Transcribed: 11/18/16 0942 Dental Ceramist Assistant: Signed 21-Aug-2015 12 Lead Electrocardiogram Result: Comments: See Note; NOTES: [facility] Cardiovascular Services [address] [place] [address] 12 Lead EKG 08/18/15 0857 MR#: [id number] Acct: [id number] Name: JV JONES JR Rep #: [id number] : 1945 69 From: Michoacano Germain MD Attending Dr: Gloria Chatman DPM Status: DEP [facility] Ordering Dr: Titi Frye MD Date: 08/18/15 Location: [facility] Sex: M C Admit inderjit: Test Reason [...] abnormality Abnormal ECG Confirmed MICHOACANO Archer ([id number]), assistant production editor ALEXIS RO ([id number]) on 08/21/2015 1:14:44 PM Referred By: VERONICA Confirmed By:MICHOACANO GERMAIN 08/21/15 1314 Date Da salud Germain MD CC: Gloria Alvarado DO Date Dictated: 08/18/15856 Date Transcribed: 08/18/15856 Dental Ceramist Assistant: Signed 20-Aug-2015 Operative Report Result: Comments: See Note; NOTES: [facility] Medical Records Department [address] [place] [address] Operative Report MR#: [id number] Acct: [id number] Name: FRANCESCO DURHAM JR Rep #: [id number] : 1945 69 From: Gloria Chatman DPM PCP: Gloria Alvarado DO Status: [facility] DATE OF SERVICE: 08/18/2015 DATE OF SERVICE: August 18, 2015. SURGEON: Gloria Chatman D.P.M. BUSINESS CONTROL MANAGER: Morgan Branch, PGY-3. PREOPERATIVE DIAGNOSES: Hammer digit [...] Gloria Chatman DPM T: BERT JOB : [id number] 08/20/15 1102 <Electronically signed by Gloria Chatman DPM> Date Gloria Chatman DPM Cosigner Signature (If Indicated ): Date CC: Gloria Chatman DPM Date Dictated: 08/19/15627 Date Transcribed: 08/19/15627 Dental Ceramist Assistant: Signed 18-Aug-2015 Toe(s) Min 2 Views Result: Comments: See Note; NOTES: [facility] Imaging Services [address] [place] [address] Verdana 4d Toe(s) Min 2 Views MR#: [id number] Acct: [id number] Name: JV REGAN Rep #: [id number] : 1945 M 69 From: Navdeep Canseco MD PCP: Gloria Alvarado DO Status: [facility] Study: Toe(s) Min 2 Views Date of Exam: 08/18/15 Exam# [id number] Ordering Dr: Gloria Elizabeth DPM STUDY: X-RAY [...] Navdeep Canseco MD at 10:37 EST Tel [phone], Service support [phone], RAD/Toe(s) Min 2 Views IMPRESSION: There has been resection of the distal aspect of the proximal phalanx of the fifth toe. Electronically Signed: Navdeep Canseco MD at 1 0:37 EST Tel [phone], Service support [phone], CC: Gloria Alvarado DO; Gloria Chatman DPM Dental Ceramist Assistant: Signed 18-Aug-2015 Discharge Instruction Result: Comments: See Note; NOTES: [facility] Medical Records Department [address] [place] [address] Instructions for Home/Discharge Instructions 08/18/15 0849 MR#: [id number] Acct: [id number] Name: JV DURHAM JR Rep #: [id number] : 1945 69 From: Gloria Chatman DPZion PCP: Gloria Alvarado DO Status: REG UTC Discharge Activity: May not drive while taking [...] [Mysoline] 50 mg PO BID 05/06/13 Tiotropium [place] [Spiriva 18 MCG] 1 puff INHALATION DAILY 05/06/13 Valsartan [Diovan] 160 mg PO BID 05/06/13 Vit A/Vit C/Vit E/Zinc/Copper [Icaps Areds Formula Tablet] 1 each PO BID 05/06/13 Please Follow Up With: Gloria Chatman When: 1 week; call [phone] 08/18/15 0851 <Electronically signed by Gloria Chatman DPM> Date Gloria Chatman DPM CC: Gloria Alvarado DO 11-Aug-2015 Carotid Duplex Ultrasound Result: Comments: See Note; NOTES: [facility] Cardiovascular Services [address] [place] [address] Carotid Duplex Ultrasound 07/31/15 1253 MR#: [id number] Acct: [id number] Name: JV DURHAM JR Rep #: [id number] : 1945 69 From: Jamie Cheung MD Attending Dr: Jamie Cheung MD Status: REG CLI Ordering Dr: Jamie Cheung MD Date: 07/31/15 Location: [facility] x: M C Admitted: Reason For [...] the left vertebral artery. Procedure Carotid Duplex 45212. Exam performed in department. 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 Mild (<50%) stenosis left extracranial internal carotid. Flow within the vertebral arteries is antegrade bilaterally. ____ Ordering Physician: Jamie Cheung Referring Physician: Gloria Alvarado D.O. Performed By: Sumi Morris, RDCS, RVT 08/11/15925 Date Jamie Cheung MD CC: Jamie Cheung MD; Gloria Alvarado DO Date Dictated: 07/31/15 1253 Date Transcribed: 08/11/15925 Dental Ceramist Assistant: Signed 02-Aug-2015 Chest PA and Lateral Result: Comments: See Note; NOTES: [facility] Imaging Services [address] [place] [address] Verdana 4d Chest PA and Lateral MR#: [id number] Acct: [id number] Name: JV DURHAM JR Rep #: [id number] : 1945 M 69 From: Navdeep Canseco MD PCP: Gloria Alvarado DO Status: PRE SDC Study: Chest PA and Lateral Date of Exam: 08/02/15 Exam# [id number] Ordering Dr: Gloria Mcqueen DPM STUDY: X-RAY [...] Navdeep Canseco MD at 11:11 EST Tel [phone], Service support [phone], ORD ER #: [id number] RAD/Chest PA and Lateral IMPRESSION: Hyperinflation. Findings suggestive of mild right basilar scarring. Electronically Signed: Navdeep Canseco MD at 11:11 EST Tel [phone], Service support [phone], CC: Gloria Alvarado DO; Gloria Chatman DPM Dental Ceramist Assistant: Signed 21-Jul-2015 Spirometry (58346) Comments: good effor tand curve mod obstruction Result: 21-Jul-2015 ELECTROCARDIOGRAM, COMPLETE (ECG) (74169) Comments: ekg showed normal sinus rhythym, normal axis, no acute st/t wave changes Result: [MEASUREMENTS ANALYSIS] Date of Test: 07/21/2015 12:20:53; Heart Rate: 65; DE Interval: 160; QRS: 102; QT Interval: 396; Corrected QT Interval (QTc): 404; P Wave [place]: 52; QRS Wave [place]: -33; T Wave Axi s: 51; Blood Pressure: 144/70 [ECG DIAGNOSTIC STATEMENTS] Date of Test: 07/21/2015 12:20:53; Summary: Sinus Rhythm WITHIN NORMAL LIMITS [MEASUREMENTS ANALYSIS] Date of Test: 07/21/2015 12:20:20; Heart Rate: 70; DE Interval: 158; QRS: 104; QT Interval: 400; Corrected QT Interval (QTc): 417; P Wave [place]: 51; QRS Wave [place]: -34; T Wave [place]: 50; Blood Pressure: 144/70 [ECG DIAGNOSTIC STATEMENTS] Date of Test: 07/21/2015 12:20:20; Summary: Sinus Rhythm - occasional ectopic ventricular beat -Left axis. ABNORMAL 17-May-2015 Vascular Test/LEAS/UEAS Result: Comments: See Note; NOTES: [facility] Cardiovascular Services [address] [place] [address] Verdana 4d Ankle Brachial Index MR#: [id number] Acct: [id number] Name : JV DURHAM JR Rep #: [id number] : 1945 69 From: Jamie Cheung MD [...] noted. Jamie Cheung M.D. T: BERT JOB: [id number] 05/17/15 1126 <Electronically signed by Jamie Cheung MD> Date ___ Jamie Cheung MD CC: Jamie Cheung MD; Gloria Joce DO Date Dictated: 05/10/15805 Date Transcribed: 05/10/15805 Dental Ceramist Assistant: Signed 07-Sep-2014 Vascular Test/LEAS/UEAS Result: Comments: See Note; NOTES: [facility] Cardiovascular Services [address] [place] [address] Ankle Brachial Index 08/31/14 1049 MR#: [id number] Acct: [id number] Name: MANOLO WILKINSON JRJV Merary Rep #: [id number] : 1945 68 From: Jamie Cheung MD Attending Dr: Jamie Cheung MD Status: REG CLI Ordering Dr: Jamie Cheung MD Date: 08/31/14 Location: [facility] Sex: M C Ad mitted: DATE [...] posterior tibial and dorsalis pedis with an MAREI of 1.02. IMPRESSION: Bilateral lower extremities with no evidence of significant arterial occ lusive disease with an MARIE of 0.99 on the right and 1.02 on the left. 09/07/14 1038 <Electronically signed by Jamie Cheung MD> Date _ Jamie Cheung MD CC: Jamie Cheung MD; Gloria Alvarado DO Date Dictated: 08/31/14 1049 Date Transcribed: 08/31/14 1430 Dental Ceramist Assistant: WHITT Signed 11-Aug-2014 Kidney and Bladder Result: Comments: See Note; NOTES: [facility] Imaging Services [address] [place] [address] Ultrasound Report MR#: [id number] Acct: [id number] Name: JV DURHAM JR Rep #: [id number] : 1945 M 68 From: Navdeep Canseco MD PCP: Gloria Alvarado DO Status: REG CLI Study: Kidney and Bladder Date of Exam: 08/11/14 Exam# [id number] Ordering Dr: Ashlee Garrett STUDY: LURDES AL ULTRASOUND - COMPLETE REASON FOR EXAM: Male, [...] Navdeep Canseco MD at 13:34 EST Tel [phone], Service s upport [phone], CC: Ashlee Garrett; Gloria Alvarado DO Dental Ceramist Assistant: Signed 26-Jul-2014 Carotid Duplex Ultrasound Result: Comments: See Note; NOTES: [facility] Cardiovascular Services [address] [place] [address] Carotid Duplex Ultrasound 07/14/14 1231 MR#: [id number] Acct: [id number] Nam e: JV DURHAM Rep #: [id number] : 1945 68 From: Jamie Cheung MD [...] left bulb. Acoustic shadowing. Procedure Carotid Duplex 26957. The exam was diagnostic. Exam performed i [...] Date Dictated: 07/14/14 1231 Date Transcribed: 07/26/142015 Dental Ceramist Assistant: Signed 30-Jun-2014 Spirometry (24710) Comments: ostructive pattern poor technique Result: 06-Apr-2014 Vascular Test/LEAS/UEAS Result: Comments: See Note; NOTES: [facility] Cardiovascular Services [address] [place] [address] Ankle Brachial Index 04/01/14 1006 MR#: [id number] Acct: [id number] Name: JV LAND JR Rep #: [id number] : 1945 68 From: Jamie Cheung MD Attending Dr: Jamie Cheung MD Status: REG CLI Ordering Dr: Jamie Cheung MD Date: 04/01/14 Location: [facility] Sex: M C Ad mitted: DATE [...] Dictated: 04/01/14 1006 Date Transcribed: 04/01/14 1238 Dental Ceramist Assistant: WHITT Signed 17-Mar-2014 Spirometry (97390) Result: 03-Nov-2013 Spirometry (83385) Comments: good effort and curve mod obstr Result: Immunization Name Dates Details Pneumococcal (2 years and up) on: 05-May-2009 Comments: Lot #[id number]/8/11Site-right deltoidDose0.5mggiven by:CDH Family History Unknown Family Member [...] smoker Vital Signs Date Test Result Details :02 Temperature 98.4 f Comments: Method: Temporal [...] 0.00 cm Results Date Description Value Details :10 Basic Metabolic Profile (BMP) Comments: [facility] [address] [place], [place], [address] GAP 7 (Normal) Range: 5-15 CO2 31.0 [...] Comments: Please note revised GLUCOSE reference range hurqfnavb44/02/2018. 4-Ugw-148072:10 Digoxin Level Comments: [facility] [address] [place], [place], [id number] DIG 1.25 ng/mL (Normal) Range: 0.80-2.00 :10 Magnesium Comments: [facility] [address] [place], [address] MG 2.1 mg/dL (Normal) Range: 1.6-2.6 :55 CBC W/Diff, Automated Comments: Reason for Laboratory Test .[facility] [address] [place], [address] Absolute Lymph 1.17 {X10_3/ul} (Normal) Range: 0.83-4.51 [...] 4.6-6.2 WBC 9.3 K/mm3 (Normal) Range: 4.4-11.0 :55 Comprehensive Metabolic Profil Comments: Reason for Laboratory Test .[facility] [address] [place], [place], [address] GAP 7 (Normal) Range: 5-15 CO2 31.0 [...] A.D.A. criteria.Please note revised GLUCOSE reference range /02/2018. 45-Vro-424485:55 Ferritin Comments: Reason for Laboratory Test .[facility] [address] [place], [place], [address] FERRITIN 28 ng/mL (Normal) Range: 26-388 65-Dch-733720:55 Iron+Iron Binding Capacity Comments: Reason for Laboratory Test .[facility] [address] [place], [place], [address] IRON SATURATION 6.8 % (Abnormal) Range: 15.0-55.0 IRON 26 ug/dL (Abnormal) Range: 65-175 TIBC 381 ug/dL (Normal) Range: 250-450 10-Npc-339792:32 URINALYSIS (19528) Comments: PATIENT NOT FASTINGPERFORMED BY: EUDOWEB [facility] [id number] Information: SRC:UC Microscopic Examination MICNIP (Normal) Comments: Microscopic not indicated and not performed. Nitrite, Urine Negative (Normal) Urobilinogen,Semi-Qn 0.2 mg/dL (Normal) Range: 0.2-1.0 Bilirubin Negative (Normal) Occult Blood Negative (Normal) Ketones Negative (Normal) Glucose Negative (Normal) Protein Negative (Normal) WBC Esterase Negative (Normal) Appearance Clear (Normal) Urine-Color Yellow (Normal) pH 6.5 (Normal) Range: 5.0-7.5 Specific Echo 1.008 (Normal) Range: 1.005-1.030 33-Wbw-361772:32 URINE VI CULTURE-IDENTIFICATN Comments: PATIENT NOT FASTINGPERFORMED BY: [email or web address]70 [facility] Medical CenterSprinklrUNC Health Caldwell [id number] ([address]) Result 1 NG36 (Normal) Comments: No growth in 36 - 48 hours. Urine Culture,Comprehensive Final report (Normal) 55-Syv-149307:16 CBC W/AUTO DIFF WBC (86037) Comments: PATIENT NOT FASTINGPERFORMED BY: [facility]370 [facility] [id number] Immature Grans (Abs) 0.0 {x10E3/uL} (Normal) Range: [...] 4.14-5.80 WBC 10.0 {x10E3/uL} (Normal) Range: 3.4-10.8 50-Bff-471510:16 METABOLIC PANEL, COMPREHENSIVE Comments: PATIENT NOT FASTINGPERFORMED BY: [facility] Vljlmd9785 [facility] [id number] ([id number]) ALT (SGPT) 12 [iU]/L (Normal) Range: 0-44 [...] 8-27 Glucose 112 mg/dL (Abnormal) Range: 65-99 9-Fcn-453177:45 Basic Metabolic Profile (BMP) Comments: [facility] [address] [place], [place], [address] GAP 9 (Normal) Range: 5-15 CO2 26.0 [...] A.D.A. criteria.Please note revised GLUCOSE reference range ginemmntu30/02/2018. 2-Wvy-454458:45 CBC W/Diff, Automated Comments: [facility] [address] [place], [address] Absolute Lymph 0.88 {X10_3/ul} (Normal) [...] 4.6-6.2 WBC 16.8 K/mm3 (Abnormal) Range: 4.4-11.0 1-Dro-864280:45 Digoxin Level Comments: [facility] [address] [place], [place], [address] DIG 1.26 ng/mL (Normal) Range: 0.80-2.00 1-Oro-396407:45 Lactic Acid Comments: Yes/No query for Sepsis Lactate Rule [facility] [address] [facility] [address] [place], [place], [address] LACTIC ACID 1.2 mmol/L (Normal) Range: 0.4-2.0 9-Fsn-262459:45 Troponin-I Comments: [facility] [address] [place], [place], [address] TROPONIN-I 0.052 ng/mL (Abnormal) Comments: TROPONIN-I EXPECTED VALUES <0.045 Negative 0.045 - 0.590 Consistent with Cardiac Damage > OR = 0.600 Critical Value Not every elevated troponin is indicative of VT. T hesevalues should be used with clinical judgement in examiningthe patient's clinical picture for diagnosis. To establisha diagnosis of VT versus myocardial injury, there must be ademonstrated rise and/ or fall in the troponin values, inaddition to ischemic symptoms, EKG changes, new regionalwall motion abnormality, and/or angiographical evidence. PLEASE NOTE: REFERENCE RANGES EDITED 10/27/1721-Dec-20173-Ptr-931310:25 Urinalysis, Complete Comments: How was Urine Obtained? CLEAN [facility] [address]ns[address] [place], [place], [address] MUCUS, URINE 0 SEEN {/hpf} (Normal) BACTERIA [...] (Normal) CLARITY Clear (Normal) COLOR Yellow (Normal) 26-Qny-945799:12 VITAMIN B-12 (CYANOCOBALAMIN) Comments: PATIENT NOT FASTINGPERFORMED BY: [facility]6370 [facility]At[facility] [id number] ([id number]) Vitamin B12 807 pg/mL (Normal) Range: 232-1245 57-Yto-936363:12 CBC W/AUTO DIFF WBC (91293) Comments: PATIENT NOT FASTINGPERFORMED BY: [employer]Wal[employer]Kit70 [facility] [id number] Immature Grans (Abs) 0.0 {x10E3/uL} (Normal) Range: [...] 4.14-5.80 WBC 9.1 {x10E3/uL} (Normal) Range: 3.4-10.8 28-Exk-983349:12 METABOLIC PANEL, COMPREHENSIVE Comments: PATIENT NOT FASTINGPERFORMED BY: [facility]6370 [facility] [id number] (80937) ALT (SGPT) 11 [iU]/L (Normal) Range: 0-44 [...] 8-27 Glucose 101 mg/dL (Abnormal) Range: 65-99 0-Rgw-378716:52 VITAMIN B-12 (CYANOCOBALAMIN) Comments: PATIENT NOT FASTINGPERFORMED BY: [facility]hez[facility] BiomedicalAtlantiCare Regional Medical Center, Mainland CampusTeglyn0683 [facility] [id number] ([id number]) Vitamin B12 1894 pg/mL (Abnormal) Range: 232-1245 8-Smw-349347:52 METABOLIC PANEL, COMPREHENSIVE Comments: PATIENT NOT FASTINGPERFORMED BY: Adhez[facility] BiomedicalAtlantiCare [facility], Mainland CampusVpyulf9134 [facility] [id number] (29414) ALT (SGPT) 10 [iU]/L (Normal) Range: 0-44 [...] 8-27 Glucose 94 mg/dL (Normal) Range: 65-99 5-Mzw-917275:52 CBC W/AUTO DIFF WBC (26815) Comments: PATIENT NOT FASTINGPERFORMED BY: [facility] Yraprp5971 [facility] [id number] Immature Grans (Abs) 0.0 {x10E3/uL} (Normal) Range: [...] 4.14-5.80 WBC 10.1 {x10E3/uL} (Normal) Range: 3.4-10.8 4-Bxx-607859:32 Ferritin Comments: Reason for Laboratory Test .[facility] [address] [place], [place], [address] FERRITIN 182 ng/mL (Normal) Range: 26-388 9-Gtn-963412:32 Iron+Iron Binding Capacity Comments: Reason for Laboratory Test .[facility] [address] [place], [place], [phone] IRON SATURATION 19.7 % (Normal) Range: 15.0-55.0 IRON 71 ug/dL (Normal) Range: 65-175 TIBC 361 ug/dL (Normal) Range: 250-450 2-Sat-847717:51 CBC W/Diff, Automated Comments: Reason for Laboratory Test .[facility] [address] [place], [place], [phone] ANISO 2+ (Normal) Absolute Lymph 0.92 {X10_3/ul} [...] 4.6-6.2 WBC 11.0 K/mm3 (Normal) Range: 4.4-11.0 9-Ani-969870:51 Comprehensive Metabolic Profil Comments: Reason for Laboratory Test .[facility] [address] [place], [address] GAP 5 (Normal) Range: 5-15 CO2 32.0 [...] A.D.A. criteria.Please note revised GLUCOSE reference range hdzymzzbm73/02/2018. 26-Xbn-762423:01 CBC W/Diff, Automated Comments: [facility] [address] [place], [address] PATH REV Reviewed (Normal) Comments: Macrocytic anemia.Clinical [...] 4.6-6.2 WBC 10.6 K/mm3 (Normal) Range: 4.4-11.0 11-Llo-008493:01 Comprehensive Metabolic Profil Comments: [facility] [address] [place], [address] GAP 5 (Normal) Range: 5-15 CO2 31.0 [...] Comments: Please note revised GLUCOSE reference range gvlkavcpp00/02/2018. 42-Bee-898629:01 Urinalysis, Routine (Dipstick) Comments: How was Urine Obtained? CLEAN [facility] [address] [place], [place], [address] LEUK ESTERASE Negative /ul (Normal) OCCULT BLOOD-UR Negative /ul (Normal) NITRITE UR Negative (Normal) UROBILI 1 mg/dL (Abnormal) PROT DIPSTX Negative mg/dL (Normal) pH UR 8.0 (Normal) Range: 5.0 - 8.0 SP.GR. DIPSTX 1.010 (Normal) Range: 1.002-1.030 KETONE UR Negative mg/dL (Normal) BILIRUBIN URINE Negative mg/dL (Normal) GLUCOSE, UR Normal mg/dL (Normal) CLARITY Sl. Cloudy (Normal) COLOR Yellow (Normal) 88-Dta-615585:05 Basic Metabolic Profile (BMP) Comments: 'TROP' Serial specimen #1, #2, #3, or #4: [address] [place] [address] [address] [place], [place], [address] GAP 6 (Normal) Range: 5-15 CO2 25.0 [...] A.D.A. criteria.Please note revised GLUCOSE reference range /02/2018. 90-Kiu-112306:05 CBC W/Diff, Automated Comments: [facility] [address] [place], [address] PATH REV Reviewed (Normal) Comments: Severe Macrocytic [...] (Abnormal) Range: 150-450 Comments: RESULTS [facility] 09/29/17 1722 Akshat Almazan.REPORT READ BACK BY SAME. RDW SD 76.8 fL (Abnormal) Range: 35.1-43.9 RDW CV 23.1 % (Abnormal) Range: 11.6-14.6 MCHC 31.3 {g/gl} (Abnormal) Range: 32-36 MCH 30.9 pg (Normal) Range: 27.0-32.0 MCV 98.8 fL (Abnormal) Range: 80-94 HCT 16.0 % (Abnormal) Range: 40-54 HGB 5.0 g/dL (Abnormal) Range: 13.0-16.5 Comments: RESULTS CALLED TO [facility] 09/29/17 1722 Akshat Almazan.REPORT READ BACK BY SAME. RBC 1.62 {M/mm3} (Abnormal) Range: 4.6-6.2 WBC 4.6 K/mm3 (Normal) Range: 4.4-11.0 44-Ekg-051146:05 Troponin-I Comments: 'TROP' Serial specimen #1, #2, #3, or #4: [address] [place] [address] [address] [place], [address] TROPONIN-I 0.12 ng/mL (Abnormal) Comments: TROPONIN-I EXPECTED VALUES <0.05 NEGATIVE 0.06 - 0.59 AT RISK OF VT > OR = 0.60 SUGGEST VT 60-Edk-807113:29 CBC W/Diff, Automated Comments: Reason for Laboratory Test ALSO DRAW AND HOLD FOR TYPE AND [facility] [address] [place], [address] HYPOCHROMASIA 2+ (Normal) PLT MORPH [...] 4.6-6.2 WBC 4.3 K/mm3 (Abnormal) Range: 4.4-11.0 8-Gal-474596:04 CBC W/Diff, Automated Comments: [facility] [address] [place], [place], [address] MACROCYTE 1+ (Normal) HYPOCHROMASIA 1+ (Normal) ANISO [...] 4.6-6.2 WBC 14.0 K/mm3 (Abnormal) Range: 4.4-11.0 4-Elk-973007:04 Comprehensive Metabolic Profil Comments: [facility] [address] [place], [address] GAP 10 (Normal) Range: 5-15 CO2 26.0 mmol/L (Normal) Range: 21.0-32.0 CL 104 mmol/L (Normal) Range: 98-107 K 3.9 mmol/L (Normal) Range: 3.5-5.1 NA 140 mmol/L (Normal) Range: 136-145 T BILI 0.90 mg/dL (Normal) Range: 0.20-1.00 ALT 19 U/L (Normal) Range: 16-61 Comments: Please note revised ALT reference range llhthtueb52/28/2018. ALK P 88 U/L (Normal) Range: 45-117 [...] A.D.A. criteria.Please note revised GLUCOSE reference range tzymhasub99/02/2018. 86-Jfm-428910:45 RC Comments: [facility] - refer to report for specific site [id number] TRANSFUSED PRODUCT: T AND S with Crossmatch, Red Cells COUNT: 1 (Normal) 74-Owf-982673:45 Type AND Screen Comments: CMV NEG?* NGive When? TodayIrradiated? NLeukodepleted? YReason for Type AND Screen/Red Cells: [facility] [address]xpyv[address] [place], [place], [address] Antibody Screen NEGATIVE (Normal) BLOOD TYPE GEL O POSITIVE (Normal) 02-Mst-209902:02 CBC W/Diff, Automated Comments: [facility] [address] [place], [place], [address] PATH REV Reviewed (Normal) Comments: Neutrophilic leukocytosis with left shift.Macrocytic anemia.Clinical correlation necessary.Pathologist comment Jesica Garcias M.D. 09/12/17 AMENDED REPORT 09/12/17 1358 PATH REV previously reported as: Edita summers ANISO 1+ (Normal) RED CELL MORPH N [...] 4.6-6.2 WBC 15.2 K/mm3 (Abnormal) Range: 4.4-11.0 95-Tmk-516229:02 Comprehensive Metabolic Profil Comments: [facility] [address] [place], [address] GAP 11 (Normal) Range: 5-15 CO2 21.0 mmol/L (Normal) Range: 21.0-32.0 CL 107 mmol/L (Normal) Range: 98-107 K 4.1 mmol/L (Normal) Range: 3.5-5.1 NA 139 mmol/L (Normal) Range: 136-145 T BILI 1.10 mg/dL (Abnormal) Range: 0.20-1.00 ALT 20 U/L (Normal) Range: 16-61 Comments: Please note revised ALT reference range /28/2018. ALK P 102 U/L (Normal) Range: 45-117 [...] A.D.A. criteria.Please note revised GLUCOSE reference range jxetyiiya80/02/2018. 58-Pib-656713:30 CBC W/Diff, Automated Comments: Reason for Laboratory Test [facility] [address]cdug[address] [place], [place], [address] PATH REV Reviewed (Normal) Comments: Neutrophilic leukocytosis [...] 4.6-6.2 WBC 23.9 K/mm3 (Abnormal) Range: 4.4-11.0 17-Sqm-818808:15 Comments: [facility] - refer to report for specific site [id number] TRANSFUSED PRODUCT: T AND S with Crossmatch, Red Cells COUNT: 2 (Normal) 25-Lwn-208998:15 Type AND Screen Comments: CMV NEG?* NGive When? TodayIrradiated? NLeukodepleted? YReason for Type AND Screen/Red Cells: [facility] [address] [place], [address] Antibody Screen NEGATIVE (Normal) BLOOD TYPE GEL O POSITIVE (Normal) 95-Apg-553978:15 Type AND Screen Comments: CMV NEG?* NGive When? TodayIrradiated? NLeukodepleted? YReason for Type AND Screen/Red Cells: [facility] [address], [address] Antibody Screen NEGATIVE (Normal) BLOOD TYPE GEL O POSITIVE (Normal) 67-Ytw-222879:08 CBC W/Diff, Automated Comments: Reason for Laboratory Test .CRITICAL VALUE VERIFIED. CALLED TO TR[place]09/01/17 1356 Amy Wan.RESULTS READ BACK BY SAME .[facility] [address] [place], [address] PATH REV Reviewed (Normal) Comments: Neutrophilic left shift.Severe normocytic anemia.NRBCs are noted.Thrombocytopenia.Clinical correlation necessary.Silvio Garcias M.D. 09/02/17 AMENDED REPORT 09/02/17 0983 PATH REV previously reported as: May foll MACROCYTE 1+ (Normal) HYPOCHROMASIA 3+ (Normal) POLYCHROMASIA [...] (Abnormal) WBC 6.5 K/mm3 (Normal) Range: 4.4-11.0 81-Yxo-842878:01 Comments: [facility] - refer to report for specific site [id number] TRANSFUSED PRODUCT: T AND S with Crossmatch, Red Cells COUNT: 1 (Normal) 18-Ccy-018632:01 Type AND Screen Comments: PRETRANSFUSION HGB = 7.3 HCT = 24.2 PERFORMED AT [facility] NEG?* NGive When? When ReadyIrradiated? NLeukodepleted? YReason for Type AND Screen/Red Cells: [facility] [address] [place], [place], [address] Antibody Screen NEGATIVE (Normal) BLOOD TYPE GEL O POSITIVE (Normal) 04-Iga-807389:59 CBC W/Diff, Automated Comments: Reason for Laboratory Test .[facility] [address] [place], [address] HYPOCHROMASIA 2+ (Normal) ANISO 2+ (Normal) PLT [...] Range: 4.4-11.0 :56 CBC W/Diff, Automated Comments: [facility] [address] [place], [place], [address] PATH REV Reviewed (Normal) Comments: Macrocytic anemia.Neutrophilic leukocytosis with slight left shift.Kel Morales D.O. 08/21/17 AMENDED REPORT 08/21/17 0914 PATH REV previously reported as: October foll HYPOCHROMASIA 2+ (Normal) POLYCHROMASIA 1+ (Normal) PLT [...] 4.6-6.2 WBC 27.2 K/mm3 (Abnormal) Range: 4.4-11.0 20-Aug-20179:56 Comprehensive Metabolic Profil Comments: [facility] [address] [place], [place], [address] GAP 10 (Normal) Range: 5-15 CO2 25.0 mmol/L (Normal) Range: 21.0-32.0 CL 107 mmol/L (Normal) Range: 98-107 K 3.9 mmol/L (Normal) Range: 3.5-5.1 NA 142 mmol/L (Normal) Range: 136-145 T BILI 0.70 mg/dL (Normal) Range: 0.20-1.00 ALT 18 U/L (Normal) Range: 16-61 Comments: Please note revised ALT reference range ojhjipioq86/28/2018. ALK P 108 U/L (Normal) Range: 45-117 [...] A.D.A. criteria.Please note revised GLUCOSE reference range wwdvcsfgi10/02/2018. 20-Aug-20179:56 NRBC PANEL Comments: [facility] [address] [place], [address] NRBC # 0.17 {10_3/uL} (Normal) Range: 0-5 NRBC, FLAGGED 0.6 % (Normal) Range: 0-5 09-Cos-71011:40 RC Comments: [facility] - refer to report for specific site [id number] TRANSFUSED PRODUCT: T AND S with Crossmatch, Red Cells COUNT: 1 (Normal) :40 Type AND Screen Comments: CMV NEG?* NGive When? 08/14/17Irradiated? NLeukodepleted? YReason for Type AND Screen/Red Cells: [facility] [address] [place], [place], [address] Antibody Screen NEGATIVE (Normal) BLOOD TYPE GEL O POSITIVE (Normal) :39 CBC W/Diff, Automated Comments: Reason for Laboratory Test [facility] [address]bp[address] [place], [address] PATH REV Reviewed (Normal) Comments: Leukocytosis with neutrophilic left shift.Macrocytic anemia.Thrombocytopenia.Clinical correlation necessary.Silvio Garcias M.D. 08/14/17 AMENDED REPORT 08/14/17 1346 PATH REV previously reported as: May foll [...] (Abnormal) WBC 24.3 K/mm3 (Abnormal) Range: 4.4-11.0 :39 Lipid Profile Comments: [facility] [address] [place], [place], [address] VLDL 31 mg/dL (Normal) Range: 5-40 LDL [...] mg/dL High Risk :39 Liver Profile Comments: [facility] [address] [place], [place], [address] D BILI 0.34 mg/dL (Abnormal) Range: 0.00-0.30 T BILI 0.70 mg/dL (Normal) Range: 0.20-1.00 ALT 23 U/L (Normal) Range: 16-61 Comments: Please note revised ALT reference range /28/2018. ALK P 108 U/L (Normal) Range: 45-117 AST 29 U/L (Normal) Range: 15-37 GLOB 3.1 g/dL (Normal) Range: 2.2-4.2 ALB 3.3 g/dL (Normal) Range: 3.2-5.0 T PROT 6.4 g/dL (Normal) Range: 6.4-8.2 [id number] Comments: [facility] - refer to report for specific site [id number] TRANSFUSED PRODUCT: T AND S with Crossmatch, Red Cells COUNT: 1 (Normal) [id number] Type AND Screen Comments: CMV NEG?* NGive When? 08/06/17Irradiated? NLeukodepleted? YReason for Type AND Screen/Red Cells: [facility] [facility] [address]pc[address] [place], [address] Antibody Screen NEGATIVE (Normal) BLOOD TYPE GEL O POSITIVE (Normal) 96-Olg-294310:03 CBC W/Diff, Automated Comments: Reason for Laboratory Test [facility] M[address]eqnmfer[address] [place], [id number] PATH REV Reviewed (Normal) Comments: Leukocytopenia.Normocytic anemia.Clinical correlation suggested.Kel Morales D.O. 08/06/17 AMENDED REPORT 08/06/17 0915 PATH REV previously reported as: Edita summers SMEAR COMMENT (Normal) Comments: LYMPHOPENIA NOTED Absolute [...] 4.6-6.2 WBC 2.6 K/mm3 (Abnormal) Range: 4.4-11.0 42-Wng-332168:45 Ferritin Comments: Reason for Laboratory [facility] Utkbmmtqjw[address] [place], [address] FERRITIN 59 ng/mL (Normal) Range: 26-388 16-Kgx-656510:45 Iron+Iron Binding Capacity Comments: Reason for Laboratory Test [facility] Imrdfsokuj27[address] [place], [address] IRON SATURATION 8.1 % (Abnormal) Range: 15.0-55.0 IRON 39 ug/dL (Abnormal) Range: 65-175 TIBC 484 ug/dL (Abnormal) Range: 250-450 :08 CBC W/Diff, Automated Comments: [facility] Dklvqweqss[address] [place], [address] PATH REV Reviewed (Normal) Comments: Neutrophilic leukocytosis.Macrocytic [...] 4.6-6.2 WBC 21.2 K/mm3 (Abnormal) Range: 4.4-11.0 41-Emh-16411:08 Comprehensive Metabolic Profil Comments: [facility] [address]krv[address] [place], [address] GAP 13 (Normal) Range: 5-15 CO2 23.0 mmol/L (Normal) Range: 21.0-32.0 CL 106 mmol/L (Normal) Range: 98-107 K 4.2 mmol/L (Normal) Range: 3.5-5.1 NA 142 mmol/L (Normal) Range: 136-145 T BILI 0.60 mg/dL (Normal) Range: 0.20-1.00 ALT 47 U/L (Normal) Range: 16-61 Comments: Please note revised ALT reference range /28/2018. ALK P 116 U/L (Normal) Range: 45-117 [...] A.D.A. criteria.Please note revised GLUCOSE reference range yzcvfgsvr39/02/2018. 5-Vwi-188668:50 RC Comments: [facility] - refer to report for specific site [id number] TRANSFUSED PRODUCT: T AND S with Crossmatch, Red Cells COUNT: 1 (Normal) 9-Twd-690312:50 Type AND Screen Comments: CMV NEG?* NGive When? 07/23/17Irradiated? NLeukodepleted? YReason for Type AND Screen/Red Cells: [facility] Fnfyhfhvra7147 [facility] [place], [place], [id number] Antibody Screen NEGATIVE (Normal) BLOOD TYPE GEL O POSITIVE (Normal) 5-Epn-214591:41 CBC W/Diff, Automated Comments: [facility] Oryasodxhf1213 [facility]. [place], [place], [address] PATH REV Reviewed (Normal) Comments: Neutrophilic left [...] 19-41 NEUT% 55.5 % (Normal) Range: 47-70 4-Ifa-884895:41 NRBC PANEL Comments: [facility] [address]co[address] [place], [address] NRBC # 0.32 {10_3/uL} (Normal) Range: 0-5 NRBC, FLAGGED 4.8 % (Normal) Range: 0-5 1-Mdy-202564:48 CBC, PLATELETS & MANUAL DIFF Comments: PATIENT NOT FASTINGPERFORMED BY: [facility] Uuuimo5769 [facility] [id number] (75255) Hematology Comments: Note: (Normal) Comments: Verified by [...] 4.14-5.80 WBC 4.0 {x10E3/uL} (Normal) Range: 3.4-10.8 99-The-65774:27 CBC W/Diff, Automated Comments: Reason for Laboratory Test [facility] Vcwengokfb70[address] [place], [address] Absolute Lymph 0.68 {X10_3/ul} (Abnormal) Range: 0.83-4.51 [...] 4.6-6.2 WBC 13.5 K/mm3 (Abnormal) Range: 4.4-11.0 20-Uiu-66578:27 Comprehensive Metabolic Profil Comments: Reason for Laboratory Test [facility] Uuoozrvtph3954 [facility] [place], [place], [address] GAP 8 (Normal) Range: 5-15 CO2 28.0 [...] 126 mg/dLsuggests DIABETES MELLITUS per A.D.A. criteria. 85-Vvb-170766:51 Serum Creatinine AND GFR Comments: [facility] Khwzfuvwdw5274 [facility] [place], [address] EST GFR - AA 81 mL/min (Normal) Comments: GFR Calc EST GFR 67 mL/min (Normal) Comments: Non- GFR Calc CREAT,SERUM 1.14 mg/dL (Normal) Range: 0.70-1.30 Comments: The validity of the calculated GFR AND GFRAA in patients over70 years has not been determined. Clinical correlation isessential. 00-Rbd-366271:52 Blood Gases by [facility] Comments: [facility] LaboratoryPoint of Bnks8969 [facility] [place] [address] SO2 ISTAT 87 % (Abnormal) Range: 95-99 [...] Radial (Normal) BLD GAS TYPE ART (Normal) 40-Uho-942369:32 CBC, PLATELETS & MANUAL DIFF Comments: PATIENT NOT FASTINGPERFORMED BY: [facility] Jcbtni4862 [facility] [id number] (06128) Immature Grans (Abs) 0.0 {x10E3/uL} (Normal) Range: [...] Range: 3.4-10.8 :05 CBC W/Diff, Automated Comments: [facility] Llbkdcfnti[address] [place], [place], [address] Absolute Lymph 1.15 {X10_3/ul} (Normal) Range: 0.83-4.51 [...] 4.6-6.2 WBC 11.9 K/mm3 (Abnormal) Range: 4.4-11.0 :05 Comprehensive Metabolic Profil Comments: [facility] Z[address]rhwkczv[address] [place], [place], [address] GAP 8 (Normal) Range: 5-15 CO2 31.0 [...] 7-18 GLU 101 mg/dL (Normal) Range: 70-110 94-Puc-998094:05 Liver Profile Comments: [facility] [address] [place], [address] D BILI 0.25 mg/dL (Normal) Range: 0.00-0.30 T BILI 1.00 mg/dL (Normal) Range: 0.20-1.00 ALT 19 U/L (Normal) Range: 12-78 ALK P 80 U/L (Normal) Range: 45-117 AST 22 U/L (Normal) Range: 15-37 GLOB 3.5 g/dL (Normal) Range: 2.3-3.5 ALB 3.5 g/dL (Normal) Range: 3.4-5.0 T PROT 7.0 g/dL (Normal) Range: 6.4-8.2 95-Esw-921604:05 MRSA/SAID SCREEN Comments: [facility] [address] [place], [address] MRSA+SAID SCRN See Note (Normal) Comments: MRSA/SAID SCRNS. AUREUS S. aureus NegativeMRSA MRSA Negative 67-Nrq-437547:05 Partial Thromboplast Time Comments: [facility] D[address] [place], [address] PTT 32.3 s (Normal) Range: 24.1-36.2 65-Gml-100999:05 Prothrombin Time w/INR Comments: [facility] [address]udp[address] [place], [address] INR 1.8 (Normal) PROTIME 20.4 s (Abnormal) Range: 11.7-14.9 :35 HgA1C , Office (73463) HgA1C , Office 5.6 % (Normal) Range: 4.6 - 7.1 23-Idw-407194:34 Basic Metabolic Profile (BMP) Comments: NO VRO CHARGE PT HAD BLOODWORK WITH DR GLORIA ALVARADO. [facility] Kfjcgfyjme37[address] [place], [address] GAP 7 (Normal) Range: 5-15 CO2 33.0 [...] 7-18 GLU 101 mg/dL (Normal) Range: 70-110 35-Sde-805119:29 CBC W/Diff, Automated Comments: [facility] Scspigkxqm[address] [place], [address] ; will review on 7.19 Absolute Lymph [...] 4.6-6.2 WBC 9.7 K/mm3 (Normal) Range: 4.4-11.0 18-Cgf-632861:29 Comprehensive Metabolic Profil Comments: Has Patient had X-rays with Contrast this admission? NIs Patient on Heparin? [facility] Wijfatwryp0114 [place], [place], [address] GAP 6 (Normal) Range: 5-15 CO2 32.0 [...] 7-18 GLU 101 mg/dL (Normal) Range: 70-110 85-Phu-408702:29 Free T3 Comments: Has Patient had X-rays with Contrast this admission? NIs Patient on Heparin? [facility] Ncuvwidkhr8568 [facility] [place], [place], [address] FREE T3 2.1 pg/mL (Abnormal) Range: 2.18-3.98 02-Pum-215614:29 Lipid Profile Comments: Has Patient had X-rays with Contrast this admission? NIs Patient on Heparin? [facility] Bpjoauvsty4196 [facility] [place], [place], [address] VLDL 29 mg/dL (Normal) Range: 5-40 LDL [...] 200-240 mg/dL Borderline >240 mg/dL High Risk :29 PSA,Total - Annual Screen Comments: Has Patient had X-rays with Contrast this admission? NIs Patient on Heparin? [facility] Scktcrktxr[address] [place], [address] PSA,TOT SCREEN 0.45 ng/mL (Normal) Range: 0.00-4.00 Comments: This test was performed using the TPSA assay method for [employer] chemistry system. Values obtained with differentassay methods cannot be used interchangably.When changing PSA assays in the course of monitoring apatient, additional sequential testing should be carriedout to confirm baseline values. :29 T4 Free Direct Comments: Has Patient had X-rays with Contrast this admission? NIs Patient on Heparin? [facility] Crmotyubug[address] [place], [address] T4 FREE DIRECT 0.96 ng/dL (Normal) Range: 0.76-1.46 10-Cxg-454922:29 Thyroid Stim Hormone (TSH) Comments: Has Patient had X-rays with Contrast this admission? NIs Patient on Heparin? [facility] Zbewqbyfky99[address] [place], [address] TSH 2.61 {uIU/mL} (Normal) Range: 0.358-3.74 07-Lpb-780256:29 Vitamin B12 740 pg/mL (Normal) Comments: [facility] Xjdgfcikbg[address] [place], [address] Range: 211-911 :19 Blood Gas Specimen Type Comments: [facility] LaboratoryPoint [place] [address] [place] [address] BLD GAS TYPE JACKIE (Normal) :19 VBG PO2 I-STAT 30 {mmHg} (Normal) Comments: [facility] [address] [place] [address] Range: 25-40 :19 VBG SO2 ISTAT 54 % (Normal) Comments: [place] [address] [place] [address] Range: 50-70 :16 Blood Gas Specimen Type Comments: [place] [address] [place] [address]( BLD GAS TYPE JACKIE (Normal) :16 VBG PO2 I-STAT 26 {mmHg} (Normal) Comments: [place] [address] [place] [address] Range: 25-40 :16 VBG SO2 ISTAT 46 % (Abnormal) Comments: [place] [address] [place] [address] Range: 50-70 :09 Blood Gas Specimen Type Comments: [place] [address] [place] [address] BLD GAS TYPE ART (Normal) :09 PO2 I-STAT 54 {mmHG} (Abnormal) Comments: [place] [address] [place] [address] Range: 75-100 :09 SO2 ISTAT 87 % (Abnormal) Comments: [place] [address] [place], [place] [address] Range: 95-99 :06 Troponin-I Comments: Serial Specimen #1, #2 or #3? 1'TROP' Serial specimen #1, #2, #3, or #4: [address] [address] [place], [address] ; ordered by Dr. Frye TROPONIN-I < 0.02 ng/mL (Normal) Comments: TROPONIN-I EXPECTED VALUES <0.05 NEGATIVE 0.06 - 0.59 AT RISK OF VT > OR = 0.60 SUGGEST VT 97-Mpq-101104:03 URINE VI CULTURE-IDENTIFICATN Comments: PATIENT NOT FASTINGPERFORMED BY: [facility] Fwjmbc7250 [address] [place] [id number] Information: [id number] (81346) Result 1 NG36 (Normal) Comments: No growth in 36 - 48 hours. Urine Culture,Comprehensive Final report (Normal) 48-Sbp-411798:00 Culture, Urine Comments: [facility] [address]cci[address] [place], [place], [address] CUUR See Note (Normal) Comments: Urine CultureORGANISM 1: Mixed Gram Positive OrganismsColony Count 1000-10,000MIX CULTURE Mixed contaminants. Submit a new specimen if indicated. 25-Uxr-864748:13 CBC W/Diff, Automated Comments: [facility] H[address]kjhv[address] [place], [place], [address] ; ordered by Dr. Chatman Absolute Lymph [...] 4.6-6.2 WBC 11.3 K/mm3 (Abnormal) Range: 4.4-11.0 94-Xva-865118:13 Comprehensive Metabolic Profil Comments: [facility] Q[address]ffklor[address] [place], [address] GAP 7 (Normal) Range: 5-15 CO2 31.0 [...] <126 mg/dLsuggests IMPAIRED HOMEOSTASIS per A.D.A. criteria. 74-Cbw-071993:13 Urinalysis, Complete Comments: How was Urine Obtained? [facility] Ntwreabevm9512 [place], [address] ; ordered by Compa MUCUS, URINE 0 [...] (Normal) 24-May-20158:48 Pathology Report Comments: PERFORMED BY: KWCYT [facility] [place] Cyto Heevk91272 [facility] [id number] BY: [facility] Kvhvuqu[address] [id number] Information: [id number] See MATER Comments: Material submitted: .SHAVE BIOPSY LEFT BUTTOCKClinician provided ICD-10:D49.2Diag nosis:NEVUS Note (Normal) LIPOMATOSUS.TMZ/05/26/2015Electronically signed: .Tiffany Hector MD, DermatopathologistGross juan alberto cription: .SUBMITTED IN FORMALIN LABELED JV DURHAM AND DESIGNATED LEFTBUTTOCK IS A PORTION OF ROSALES/YELLOW TISSUE MEASURING 1.2 X 1.0 X0.3 CM. THE MARGINS ARE I NKED BLUE. THE SPECIMEN IS SERIALLYSECTIONED INTO FOUR PIECES AND SUBMITTED IN TOTO.XJW/VINPathologist provided ICD-10:D23.5CPT .443905 20-Jul-20158:21 METABOLIC PANEL, COMPREHENSIVE Comments: PATIENT WAS FASTINGPERFORMED BY: [facility]CoAtlantiCare [facility] CampusZiklwt3138 [facility] [id number] (24694) ALT (SGPT) 16 [iU]/L (Normal) Range: 0-44 [...] CREATININE RATIO Comments: PATIENT WAS FASTINGPERFORMED BY: [place] [id number] [facility] [id number]; apt today to review (09411) AND (57847) Microalb/Creat Ratio 519.2 {mg/g_creat} (Abnormal) Range: 0.0-30.0 Microalbumin, Urine 722.7 ug/mL (Abnormal) Range: 0.0-17.0 Comments: Results confirmed ondilution. Creatinine, Urine 139.2 mg/dL (Normal) Range: 22.0-328.0 :21 LIPID PANEL (52973) Comments: PATIENT WAS FASTINGPERFORMED BY: [facility]6370 [facility] [id number] LDL/HDL Ratio 1.1 {ratio_units} (Normal) Range: 0.0-3.6 Comments: LDL/HDL Ratio Men Women 1/2 Avg.Risk 1.0 1.5 Av g.Risk 3.6 3.2 2X Avg.Risk 6.2 5.0 3X Avg.Risk 8.0 6.1 LDL Cholesterol Calc 66 mg/dL (Normal) Range: 0-99 VLDL Cholesterol Tyshawn 35 mg/dL (Normal) Range: 5-40 HDL Cholesterol 58 mg/dL (Normal) Comments: According to ATP-III Guidelines, HDL-C >59 mg/dL is considered anegative risk factor for CHD. Triglycerides 177 mg/dL (Abnormal) Range: 0-149 Cholesterol, Total 159 mg/dL (Normal) Range: 100-199 :21 CBC, PLATELETS & AUT DIFF Comments: PATIENT WAS FASTINGPERFORMED BY: [place] 4187170 [facility] [id number] Information: [id number] (88570) Immature Grans (Abs) 0.0 {x10E3/uL} (Normal) Range: [...] B-12 (CYANOCOBALAMIN) Comments: PATIENT WAS FASTINGPERFORMED BY: [facility]CoAtl[facility] CampusXeawes1574 [facility] [id number] (84676) Vitamin B12 756 pg/mL (Normal) Range: 211-946 :21 Hemoglobin Glyclated (HGB A1C) Comments: PATIENT WAS FASTINGPERFORMED BY: [facility]CoAtl[facility] CampusQidkvj0090 [facility] [id number] (21329) Hemoglobin A1c 6.1 % (Abnormal) Range: 4.8-5.6 Comments: . Pre-diabetes: 5.7 - 6.4 Diabetes: >6.4 Glycemic control for adults with diabetes: <7.0 :00 LIPID PANEL (76835) Comments: PATIENT WAS FASTINGPERFORMED BY: SnapMD6370 [facility] [id number] LDL/HDL Ratio 1.0 {ratio_units} (Normal) Range: 0.0-3.6 Comments: LDL/HDL Ratio Men Women 1/2 Avg.Risk 1.0 1.5 Av g.Risk 3.6 3.2 2X Avg.Risk 6.2 5.0 3X Avg.Risk 8.0 6.1 LDL Cholesterol Calc 59 mg/dL (Normal) Range: 0-99 VLDL Cholesterol Tyshawn 31 mg/dL (Normal) Range: 5-40 HDL Cholesterol 60 mg/dL (Normal) Comments: According to ATP-III Guidelines, HDL-C >59 mg/dL is considered anegative risk factor for CHD. Triglycerides 155 mg/dL (Abnormal) Range: 0-149 Cholesterol, Total 150 mg/dL (Normal) Range: 100-199 : PSA (PROSTATE SPECIFIC Comments: PATIENT WAS FASTINGPERFORMED BY: [facility] [id number] ANTIGEN) (V76.44) Prostate Specific Ag, 0.5 ng/mL (Normal) Range: 0.0-4.0 Serum Comments: [employer] ECLIA methodology. .According to the [place] [employer], Serum PSA shoulddecrease and remain at undetectable levels after radicalprostatectomy. The AUA defines biochemical recurrence as an initialPSA value 0.2 ng/mL or greater followed by a subsequent confirmatoryPSA value 0.2 ng/mL or greater.Values obtained with d ifferent assay methods or kits cannot be usedinterchangeably. Results cannot be interpreted as absolute evidenceof the presence or absence of malignant disease. :00 CBC W/AUTO DIFF WBC Comments: PATIENT WAS FASTINGPERFORMED BY: Looglalin6370 [facility] [id number] Information: [id number]; apt. 9-25-15 (94987) Immature Grans (Abs) 0.0 {x10E3/uL} (Normal) Range: [...] B-12 (CYANOCOBALAMIN) Comments: PATIENT WAS FASTINGPERFORMED BY: Adhezion BiomedicalAtlantiCare Regional [facility] CampusZorsov2789 [facility] [id number] (57228) Vitamin B12 669 pg/mL (Normal) Range: 211-946 07-Qbn-97321:00 METABOLIC PANEL, COMPREHENSIVE Comments: PATIENT WAS FASTINGPERFORMED BY: Adhezion BiomedicalAtlantiCare Regional [facility], Main[facility] CampusJqspsd3619 [facility] [id number] (08176) ALT (SGPT) 17 [iU]/L (Normal) Range: 0-44 [...] Glucose, Serum 133 mg/dL (Abnormal) Range: 65-99 9-Jdz-723069:35 HgA1C , Office (05169) HgA1C , Office 6.1 % (Normal) Range: 4.6 - 7.1 :07 CBC With Differential/Platelet Comments: PATIENT WAS FASTINGPERFORMED BY: [facility]CoAtl[facility] CampusQbjsua8029 [facility] [id number] Information: [id number] Immature Grans (Abs) 0.0 {x10E3/uL} (Normal) Range: [...] 4.14-5.80 WBC 11.2 {x10E3/uL} (Abnormal) Range: 3.4-10.8 95-Aic-90225:07 Comp. Metabolic Panel (14) Comments: PATIENT WAS FASTINGPERFORMED BY: LabCoAtlantiCare [facility] Main[facility] CampusCvkpxf6623 [facility] [id number] ALT (SGPT) 18 [iU]/L (Normal) Range: 0-44 [...] Glucose, Serum 111 mg/dL (Abnormal) Range: 65-99 14-Kjd-47634:07 Lipid Panel With LDL/HDL Comments: PATIENT WAS FASTINGPERFORMED BY: [facility]angUNC Health [facility]dwell [id number] Ratio LDL/HDL Ratio 0.9 {ratio_units} Range: 0.0-3.6 (Normal) Comments: LDL/HDL Ratio Men Women 1/2 Avg.Risk 1.0 1.5 Av g.Risk 3.6 3.2 2X Avg.Risk 6.2 5.0 3X Avg.Risk 8.0 6.1 LDL Cholesterol Calc 52 mg/dL (Normal) Range: 0-99 VLDL Cholesterol Tyshawn 26 mg/dL (Normal) Range: 5-40 HDL Cholesterol 55 mg/dL (Normal) Comments: According to ATP-III Guidelines, HDL-C >59 mg/dL is considered anegative risk factor for CHD. Triglycerides 132 mg/dL (Normal) Range: 0-149 Cholesterol, Total 133 mg/dL (Normal) Range: 100-199 07-Dec-2014 Vitamin B12 885 pg/mL (Normal) Comments: PATIENT WAS FASTINGPERFORMED BY: [facility]ticheUNC [facility] [id number] 8:07 Range: 211-946 66-Wvq-52735:58 URINE VI CULTURE-IDENTIFICATN Comments: PATIENT NOT FASTINGPERFORMED BY: ZangUNC Health Caldwell [id number] Information: [id number] (35176) Result 1 MUG (Normal) Comments: Mixed urogenital tksoe753 Colonies/mL . Urine Culture,Comprehensive Final report (Normal) :53 Urinalysis, Office (77004) UA - LEUKOCYTE ESTERASE Negative (Normal) UA - NITRITE Negative (Normal) URINE UROBILINGN MERCY TIMED 2 mg/dL (Normal) Comments: 1.0 UA - PROTEIN 30 mg/dL (Normal) UA - PH 7.0 (Normal) UA - BLOOD Negative (Normal) UA - SPECIFIC GRAVITY 1.020 (Normal) UA - KETONES Negative mg/dL (Normal) UA - BILIRUBIN Negative (Normal) UA - GLUCOSE Negative (Normal) 09-Mwe-807115:51 URINE VI CULTURE-MERCY COL Comments: PATIENT NOT FASTINGPERFORMED BY: LabCoAtlantiCare [facility] CampusTynfrl4392 [facility] [id number] Information: SRC:UR [id number] COUNT (55818) Antimicrobial MIHEAD (Normal) Comments: S = Susceptible; [...] primarily for treating urinary tract infections. (CLSI, U379-M79,2009) Urine Culture,Comprehensive Final report (Abnormal) 66-Sgc-235683:19 Urinalysis, Office (38407) UA - LEUKOCYTE ESTERASE Small (Normal) UA - NITRITE Negative (Normal) URINE UROBILINGN MERCY TIMED 2 mg/dL (Normal) UA - PROTEIN Negative mg/dL (Normal) UA - PH 7.0 (Normal) UA - BLOOD Non Hemolyzed Trace (Normal) UA - SPECIFIC GRAVITY 1.020 (Normal) UA - KETONES Negative mg/dL (Normal) UA - BILIRUBIN Negative (Normal) UA - GLUCOSE Negative (Normal) :34 LIPID PANEL (62656) Comments: PATIENT WAS FASTINGPERFORMED BY: [facility] VascularAtlantiCare Regional Medical Center, Main[facility] CampusRraame9924 [facility] [id number] LDL/HDL Ratio 0.9 {ratio_units} (Normal) Range: 0.0-3.6 Comments: LDL/HDL Ratio Men Women 1/2 Avg.Risk 1.0 1.5 Av g.Risk 3.6 3.2 2X Avg.Risk 6.2 5.0 3X Avg.Risk 8.0 6.1 LDL Cholesterol Calc 48 mg/dL (Normal) Range: 0-99 VLDL Cholesterol Tyshawn 27 mg/dL (Normal) Range: 5-40 HDL Cholesterol 52 mg/dL (Normal) Comments: According to ATP-III Guidelines, HDL-C >59 mg/dL is considered anegative risk factor for CHD. Triglycerides 133 mg/dL (Normal) Range: 0-149 Cholesterol, Total 127 mg/dL (Normal) Range: 100-199 :34 METABOLIC PANEL, COMPREHENSIVE Comments: PATIENT WAS FASTINGPERFORMED BY: [employer] Mhiggw9555 [facility] [id number] (60919) ALT (SGPT) 14 [iU]/L (Normal) Range: 0-44 [...] Glucose, Serum 107 mg/dL (Abnormal) Range: 65-99 26-Xhd-57433:34 CBC, PLATELETS & AUT DIFF Comments: PATIENT WAS FASTINGPERFORMED BY: LabCoAtl[facility]Care [facility] CampusYdimhy5746 [facility] [id number] Information: [id number] (87650) Immature Grans (Abs) 0.0 {x10E3/uL} (Normal) Range: [...] B-12 (CYANOCOBALAMIN) Comments: PATIENT WAS FASTINGPERFORMED BY: LabCoAtlantiCare [facility], [facility] CampusDmsyjx1283 [facility] [id number] (37544) Vitamin B12 687 pg/mL (Normal) Range: 211-946 :22 HgA1C , Office (82903) HgA1C , Office 6.0 % (Normal) Range: 4.6 - 7.1 :22 Blood Glucose , Office (50395) Blood Glucose , Office 203 (Normal) 29-Vxg-774933:37 HgA1C , Office (54069) HgA1C , Office 6.2 % (Normal) Range: [...] CHOL 117 mg/dL (Normal) Comments: <200 mg/dL Vxohvadkl570-164 mg/dL Borderline>240 mg/dL High Risk 18-Mar-20148:09 MIACRE tMICROCREAT 29.7 {mg/g_CRE} (Normal) MIALB 38.7 mg/L (Normal) CREU 130.2 mg/dL (Normal) 86-Lof-785179:3 COLBX (Normal) Comments: Patient: JV DURHAM JR : 1945 (68/M)Acct Num: [id number] [facility] Num: [id number] Loc: LABSPECSpecimen: [id number] Received: 01/10/14 - 1534Spec Typ e: COLON BXC 4 [facility] [address] [phone] Ambulatory Yfjnojf9947 [place], [place] [phone] ID Blk Pcs Siva Lev + Proce dure ComCecum, NOS 3PTH PROCEDURES COMPLETEPROCEDURES: SUIV (01/11/14- 1144)TISSUESTISSUES:GROSS DESCRIPTIONReceived is one container labeled with the patient name and designated biopsycecal polyp . The specimen consists of two irregular fragments of light tansoft tissue that in aggregate measure 0.5 x 0.3 x 0.1 cm. The specimen istotally submitted in one cassette. / Shonna 01/11/14 TC:4CPT: 88 305HEADEROPERATION: Colonoscopy with biopsyPRE-OPERATIVE DIAGNOSIS: Screening / polypTISSUE SUBMITTED: Biopsy polyp cecum, rule out adenomaMICROSCOPIC DIAGNOSISPolyp cecum, biopsy:Fragments of colonic m ucosa, no pathologic diagnosis.Negative for adenomatous changes.SCAR:inocente 01/12/14Signed Silvio Garcias 01/12/14<signature on file> :55 HgA1C , Office (56977) HgA1C , Office 6.2 % (Normal) Range: 4.6 - 7.1 :55 Blood Glucose , Office (96077) Blood Glucose , Office 141 (Normal) :47 Potassium Serum (81752) Comments: 1 week; PATIENT NOT FASTINGPERFORMED BY: LabCoAtl[facility]Care [facility] CampusUjcwba6432 [facility] [id number] Information: [id number]; will review at appt today...11/03/13 Potassium, Serum [...] CHOL 136 mg/dL (Normal) Comments: <200 mg/dL Pxuqqhtpq412-935 mg/dL Borderline>240 mg/dL High Risk HDL 63 [...] performed using the TPSA assay method for [employer] chemistry system. Values obtained with differentassay methods [...] CHOL 114 mg/dL (Normal) Comments: <200 mg/dL Clyzknzho592-946 mg/dL Borderline>240 mg/dL High Risk :33 MIACRE tMICROCREAT 22.0 {mg/g_CRE} (Normal) CREU 198.2 mg/dL (Normal) MIALB 43.7 mg/L (Normal) 9-Lkl-132073:11 VI CULTURE-OTHER (93764) Comments: PATIENT NOT FASTINGPERFORMED BY: LabSelect [facility]ty Hospital6370 [facility] [id number] Information: SRC:THRT [id number] Result 1 RRF (Normal) Comments: Routine respiratory magan Upper Respiratory Culture Final report (Normal) 2-Jai-357399:11 Rapid Strep Test, Office (36162) Rapid Strep Test, Office Negative (Normal) 4-Doa-363227:25 Microscopic Examination Comments: PATIENT NOT FASTINGPERFORMED BY: [facility] [id number] Bacteria Few (Normal) Mucus Threads Present (Normal) Epithelial Cells (non renal) 0-10 {/hpf} (Normal) Range: 0 - 10 RBC 0-3 {/hpf} (Normal) Range: 0 - 3 WBC 0-5 {/hpf} (Normal) Range: 0 - 5 8-Jzr-476646:25 CBC WITH MANUAL DIFF Comments: PATIENT NOT FASTINGPERFORMED BY: [facility] [id number] Information: [id number] (61983) Immature Grans (Abs) 0.0 {x10E3/uL} (Normal) Range: [...] 4.14-5.80 WBC 11.6 {x10E3/uL} (Abnormal) Range: 4.0-10.5 2-Dsu-315502:25 METABOLIC PANEL, COMPREHENSIVE Comments: PATIENT NOT FASTINGPERFORMED BY: [facility] Soalbj3591 [facility] [id number] (24460) ALT (SGPT) 12 [iU]/L (Normal) Range: 0-44 [...] Glucose, Serum 89 mg/dL (Normal) Range: 65-99 1-Ljx-155668:25 URINALYSIS, W/ MICRO (66870) Comments: PATIENT NOT FASTINGPERFORMED BY: [facility] Fyqzdl9632 [facility] [id number] Microscopic Examination See below: (Normal) Microscopic Examination MICRON (Normal) Comments: Microscopic follows if indicated. Nitrite, Urine Negative (Normal) Urobilinogen,Semi-Qn 1.0 mg/dL (Normal) Range: 0.0-1.9 Bilirubin Negative (Normal) Occult Blood Negative (Normal) Ketones Negative (Normal) Glucose Negative (Normal) Protein Trace (Normal) WBC Esterase Negative (Normal) Appearance Clear (Normal) Urine-Color Yellow (Normal) pH 7.5 (Normal) Range: 5.0-7.5 Specific Echo 1.019 (Normal) Range: 1.005-1.030 :45 HgA1C , Office (91572) HgA1C , Office 5.8 % (Normal) Range: 4.6 - 7.1 :45 Blood Glucose , Office (66656) Blood Glucose , Office 100 (Normal) :17 PSA 0.53 ng/mL (Normal) Range: 0.00-4.00 :41 HgA1C , Office (63429) HgA1C , Office 5.8 % (Normal) Range: 4.6 - 7.1 :14 HgA1C , Office (30320) HgA1C , Office 6.0 % (Normal) Range: 4.6 - 7.1 :14 Blood Glucose , Office (45769) Blood Glucose , Office 111 (Normal) :18 [...] shows enlargement measuring 4.4 x 2.0 cm. Jmkft338/1002. There is limited visualization of the liver, [...] radiologist regarding this report, please call our [id number] line @ Dictated on 07/17/11 0824 by Joo Rodriguez MDribed on 07/18/11 0708 by ITS IMPORTSign by Aamir Rodriguez MD on 07/18/11 0709 Sign by: Aamir Rodriguez MD 86-Qdr-030898:38 HgA1C , Office (01859) HgA1C , Office 5.8 % (Normal) Range: 4.6 - 7.1 14-Qqo-018716:38 Blood Glucose , Office (20807) Blood Glucose , Office 122 (Normal) :54 [...] factor blocking antibodies. :02 HgA1C , Office (95426) HgA1C , Office 5.9 % (Normal) Range: [...] mg/dL suggests IMPAIRED HOMEOSTASIS per A.D.A. criteria. 51-Oad-374507:09 HgA1C , Office (61146) HgA1C , Office 6.0 % (Normal) Range: 4.6 - 7.1 68-Cum-217770:09 Blood Glucose , Office (87831) Blood Glucose , Office 120 (Normal) 01-Iyv-906155:05 VI CULTURE-OTHER (36966) Comments: PATIENT NOT FASTINGPERFORMED BY: [facility] [id number] Information: SRC:SANDRA [id number] Result 1 RRF (Normal) Comments: Routine respiratory magan Upper Respiratory Culture Final report (Normal) 89-Uhu-98357:30 Rapid Strep Test, Office (64331) Rapid Strep Test, Office Negative (Normal) 05-Xts-063002:04 HgA1C , Office (05283) HgA1C , Office 6.2 % (Normal) Range: 4.6 - 7.1 85-Dwy-791770:04 Blood Glucose , Office (82522) Blood Glucose , Office 137 (Normal) 9-Zom-498549:45 CHEST WITHOUT CONTRAST Radiology Report See Note (Normal) Comments: Exam Number: [id number] CT SCAN OF THE THORAX Multiple axial [...] for further evaluation. Reported By: NAVDEEP CANSECO 7-Hwl-969565:09 PSA (PROSTATE SPECIFIC Comments: PATIENT WAS FASTINGPERFORMED BY: [facility] [id number] ANTIGEN) (V76.44) Prostate Specific Ag, 0.6 ng/mL (Normal) Range: 0.0-4.0 Serum Comments: [employer] ECLIA methodology..According to the [place] [employer], Serum PSA shoulddecrease and remain at undetectable levels after radicalprostatectomy. The AUA defines biochemical recurrence a s an initialPSA value 0.2 ng/mL or greater followed by a subsequent confirmatoryPSA value 0.2 ng/mL or greater.Values obtained with different assay methods or kits cannot be usedinterchangeably. Results cannot be interpreted as absolute evidenceof the presence or absence of malignant disease. 8-Dho-149540:09 CBC WITH MANUAL DIFF Comments: PATIENT WAS FASTINGPERFORMED BY: [employer] Unlkqn4026 [facility] [id number] Information: [id number] (54815) Baso (Absolute) 0.1 {x10E3/uL} (Normal) Range: 0.0-0.2 [...] 4.10-5.60 WBC 9.4 {x10E3/uL} (Normal) Range: 4.0-10.5 6-Orb-746825:09 VITAMIN B-12 (CYANOCOBALAMIN) Comments: PATIENT WAS FASTINGPERFORMED BY: [facility] CampusKffqdj3037 [facility] [id number] (62591) Vitamin B12 787 pg/mL (Normal) Range: 211-946 4-Xee-807637:09 MICROALBUMIN: CREATININE RATIO Comments: PATIENT WAS FASTINGPERFORMED BY: [facility] CampusVmcypz1360 [facility] [id number] (35847) AND (67137) Microalb/Creat Ratio 7.4 {mg/g_creat} (Normal) Range: 0.0-30.0 Microalbumin, Urine 11.9 ug/mL (Normal) Range: 0.0-17.0 Creatinine, Urine 161.3 mg/dL (Normal) Range: 22.0-328.0 :38 HgA1C , Office (34357) HgA1C , Office 6.0 % (Normal) Range: 4.6 - 7.1 :26 LIPID CHOL 107 mg/dL (Normal) Comments: <200 mg/dL Rgvfqrwmp739-943 mg/dL Borderline>240 mg/dL High Risk HDL 45 mg/dL (Normal) Comments: Reference RangeHDL <40 mg/dL Low HDL CholesterolHDL >or= 60 mg/dL High HDL Cholesterol LDL 38 mg/dL (Normal) Range: 0-130 TRIG 118 mg/dL (Normal) Comments: Serum Triglycerides Reference IntervalNormal <150 mg/dLBorderline high 150 - 199 mg/dLHigh 200 - 499 mg/ dLVery High > or = 500 mg/dL VLDL 24 mg/dL (Normal) Range: 5-40 0-Ohr-775973:26 LIVER ALK P 54 U/L (Normal) Range: 50-136 ALT 18 U/L (Normal) Range: 12-78 AST 9 U/L (Abnormal) Range: 15-37 D BILI 0.14 mg/dL (Normal) Range: 0.00-0.30 T BILI 0.30 mg/dL (Normal) Range: 0.00-1.00 ALB 3.8 g/dL (Normal) Range: 3.4-5.0 T PROT 7.2 g/dL (Normal) Range: 6.4-8.2 45-Hxw-063180:11 CHEST WITH CONTRAST Radiology Report See Note (Normal) Comments: Exam Number: [id number] CLINICAL:Hypertension, short of breath on exertion. CT [...] information has been verbally c onveyed for BrysonD. Duglas M.D. by Jan Restrepo M.D. to Office of Dr. Delvalle,referring physician's windows admin, on 06/15/2009 05:10:51 (ET),following the [employer] policy for r eporting offindings. Reported By: JAN RESTREPO M.D. :26 BMP BUN 14 mg/dL (Normal) Range: 7-18 [...] 3.5-5.1 NA 137 mmol/L (Normal) Range: 136-145 73-Woj-734252:35 Microscopic Examination Comments: PATIENT NOT FASTINGPERFORMED BY: [facility] Tnwdit8536 [facility] [id number] Bacteria None seen (Normal) Epithelial Cells (non renal) None seen {/hpf} (Normal) Range: 0 - 10 Mucus Threads Present (Normal) RBC 0-3 {/hpf} (Normal) Range: 0 - 3 WBC None seen {/hpf} (Normal) Range: 0 - 5 70-Lux-817673:09 BMP BUN 11 mg/dL (Normal) Range: 7-18 [...] 3.5-5.1 NA 141 mmol/L (Normal) Range: 136-145 20-Wrl-834078:09 CBCD ABSOLUTE NEUT 8.0 3/uL (Abnormal) Range: [...] 11.6-14.6 WBC 10.4 K/mm3 (Normal) Range: 4.4-11.0 12-Rnl-771203:09 LIPID CHOL 169 mg/dL (Normal) Comments: <200 [...] mg/dL VLDL 43 mg/dL (Abnormal) Range: 5-40 94-Nyy-257050:09 LIVER ALB 3.8 g/dL (Normal) Range: 3.4-5.0 ALK P 73 U/L (Normal) Range: 50-136 ALT 22 U/L (Normal) Range: 12-78 Comments: Please Note: Revised Reference Range effective 09 AST 13 U/L (Abnormal) Range: 15-37 D BILI 0.13 mg/dL (Normal) Range: 0.00-0.30 T BILI 0.50 mg/dL (Normal) Range: 0.00-1.00 T PROT 7.4 g/dL (Normal) Range: 6.4-8.2 :09 MG 2.2 mg/dL (Normal) Range: 1.5-2.2 :09 PTT 31.0 s (Normal) Range: 25.2-36.2 :35 CBC WITH MANUAL DIFF (87815) Comments: PATIENT NOT FASTINGPERFORMED BY: [facility] CampusIawzpm0502 [facility] [id number] Baso (Absolute) 0.1 {x10E3/uL} (Normal) Range: 0.0-0.2 [...] 11.7-15.0 WBC 9.9 {x10E3/uL} (Normal) Range: 4.0-10.5 63-Jom-205023:35 RETICULOCYTE COUNT MANUL Comments: PATIENT NOT FASTINGPERFORMED BY: [facility] Ptujsf[address] [place] [id number] (81292) Reticulocyte Count 2.3 % (Normal) Range: 0.5-3.0 09-Evj-596311:35 LDH (LD) (LACTATE DEHYDROGENASE) Comments: PATIENT NOT FASTINGPERFORMED BY: [facility] CampusWzamst0368 [facility] [id number] (79938) LDH 169 [iU]/L (Normal) Range: 100-250 88-Gcw-472878:35 IRON (07714) Comments: PATIENT NOT FASTINGPERFORMED BY: [facility] CampusNcryad6803 [facility] [id number] Iron, Serum 54 ug/dL (Normal) Range: 40-155 58-Dvn-477438:35 FERRITIN (00639) Comments: PATIENT NOT FASTINGPERFORMED BY: [facility] CampusMgmpan3487 [facility] [id number] Ferritin, Serum 96 ng/mL (Normal) Range: 22-322 46-Xje-305706:35 VITAMIN B-12 (CYANOCOBALAMIN) Comments: PATIENT NOT FASTINGPERFORMED BY: [facility] CampusVdivua0837 [facility] [id number] (30381) Vitamin B12 591 pg/mL (Normal) Range: 211-911 91-Cwn-181200:35 TSH (32664) Comments: PATIENT NOT FASTINGPERFORMED BY: [facility] Rzhukd2596 [address] [facility] [place] [id number] TSH 1.620 {uIU/mL} (Normal) Range: 0.450-4.500 52-Bjc-430731:35 MICROALBUMIN: CREATININE RATIO Comments: PATIENT NOT FASTINGPERFORMED BY: [facility] Pbtswy3165 [facility] [id number] (43872) AND (16185) Creatinine, Urine 153.6 mg/dL (Normal) Range: 22.0-328.0 Microalb/Creat Ratio 22.7 {mg/g_creat} (Normal) Range: 0.0-30.0 Microalbumin, Urine 34.9 ug/mL (Abnormal) Range: 0.0-17.0 :35 URINALYSIS, W/ MICRO (89153) Comments: PATIENT NOT FASTINGPERFORMED BY: [facility] Yefmkx9582 [facility] [id number] Appearance Clear (Normal) Bilirubin Negative (Normal) Glucose Negative (Normal) Ketones Negative (Normal) Microscopic Examination MICRON (Normal) Comments: Microscopic follows if indicated. Microscopic Examination See below: (Normal) Nitrite, Urine Negative (Normal) Occult Blood Negative (Normal) pH 7.0 (Normal) Range: 5.0-7.5 Protein Negative (Normal) Specific Echo 1.018 (Normal) Range: 1.005-1.030 Urine-Color Yellow (Normal) Urobilinogen,Semi-Qn 0.2 mg/dL (Normal) Range: 0.0-1.9 WBC Esterase Negative (Normal) 25-Vip-400843:35 METABOLIC PANEL, COMPREHENSIVE Comments: PATIENT NOT FASTINGPERFORMED BY: [facility] Kszilr6136 [facility] [id number] (34166) A/G Ratio 1.7 (Normal) Range: 1.1-2.5 Albumin, [...] mmol/L (Normal) Range: 135-145 :35 LIPID PANEL (54276) Comments: PATIENT NOT FASTINGPERFORMED BY: [facility] CampusPgmhjl4852 [facility] [id number] Cholesterol, Total 172 mg/dL (Normal) Range: 100-199 HDL Cholesterol 50 mg/dL (Normal) Comments: According to ATP-III Guidelines, HDL-C >59 mg/dL is considered anegative risk factor for CHD. LDL Cholesterol Calc 77 mg/dL (Normal) Range: 0-99 LDL/HDL Ratio 1.5 {ratio_units} (Normal) Range: 0.0-3.6 Triglycerides 226 mg/dL (Abnormal) Range: 0-149 VLDL Cholesterol Tyshawn 45 mg/dL (Abnormal) Range: 5-40 92-Whv-581153:10 HgA1C , Office (98999) HgA1C , Office 6.0 % (Normal) Range: 4.6 - 7.1 83-Lel-931683:10 Blood Glucose , Office (37128) Blood Glucose , Office 118 (Normal) :49 HgA1C , Office (45120) HgA1C , Office 6.o % (Normal) Range: 4.6 - 7.1 7-Mqt-388229:49 Blood Glucose , Office (13633) Blood Glucose , Office 130 (Normal) :40 CBCD Comments: DR. ALVARADO ORDERED LIPID PSA [facility] VIT12 RETICDR. SHRUTHI ORDERED LIPID/LP [...] Comments: DR. ALVARADO ORDERED LIPID PSA CB[facility] C[facility] VIT12 RETICDR. SHRUTHI ORDERED LIPID/LP [...] Comments: DR. ALVARADO ORDERED LIPID PSA CBCD [facility] TSH CMP VIT12 RETICDR. SHRUTHI ORDERED LIPID/LP Range: 0.00-0.30 :40 LIPID Comments: DR. ALVARADO ORDERED LIPID PSA CBCD [facility] TSH CMP VIT12 RETICDR. SHRUTHI ORDERED LIPID/LP [...] Comments: DR. ALVARADO ORDERED LIPID PSA CBCD [facility] TSH CMP VIT12 RETICDR. SHRUTHI ORDERED LIPID/LP Range: 0.0-4.0 :40 RETIC 2.00 % (Abnormal) Comments: DR. ALVARADO ORDERED LIPID PSA CBCD [facility] CMP VIT12 RETICDR. SHRUTHI ORDERED LIPID/LP Range: 0.5-1.5 :40 TSH 0.61 {uIU/mL} (Normal) Comments: DR. ALVARADO ORDERED LIPID PSA CBCD [facility] CMP VIT12 RETICDR. SHRUTHI ORDERED LIPID/LP Range: 0.358-3.74 :40 VITAMIN B12 970 pg/mL (Normal) Comments: DR. ALVARADO ORDERED LIPID PSA CBCD [facility] TSH CMP VIT12 RETICDR. SHRUTHI ORDERED LIPID/LP Range: 254-1320 45-Xpi-28473:00 MICROALB:CRE UR Comments: DR. ALVARADO ORDERED LIPID PSA CBCD [facility] TSH CMP VIT12 RETICDR. SHRUTHI ORDERED LIPID/LP MALB:CREAT 7.8 {mg/g_CRE} (Normal) MICROALBUMIN,UR 11.7 mg/L (Normal) UR CREAT 148.8 mg/dL (Normal) :49 HgA1C , Office (91991) HgA1C , Office 5.7 % (Normal) Range: 4.6 - 7.1 :49 Blood Glucose , Office (12500) Blood Glucose , Office 89 (Normal) :38 Lower Respiratory Culture Comments: Clinical Information: SRC:SP PERFORMED BY: [facility]6[address] [facility] [id number] Lower Respiratory Culture Final report (Normal) Result [...] (Normal) Range: 0.34-4.82 :20 HgA1C , Office (94467) HgA1C , Office 5.6 % (Normal) Range: 4.6 - 7.1 :20 Blood Glucose , Office (81353) Blood Glucose , Office 132 (Normal) :16 [...] (Normal) Range: 4.4-11.0 :30 HgA1C , Office (14039) HgA1C , Office 5.4 % (Normal) Range: 4.6 - 7.1 :30 Blood Glucose , Office (62074) Blood Glucose , Office 118 (Normal) :15 GLU GTT-2 HOUR 171 mg/dL (Abnormal) Comments: 2HR GTT GLU 2 HR GLU GTT-2 HOUR from 1107:Y69204T. Range: 70-120 :15 GLU GTT-1 HOUR 194 mg/dL (Abnormal) Comments: 2HR GTT GLU 1 HR GLU GTT-1 HOUR from 1107:S34029G. Range: 120-170 :45 GLU GTT-30 min. 174 mg/dL (Abnormal) Comments: 2HR GTT GLU 1/2 HR GLU GTT-30 min. from 1107:G48514W. Range: 110-170 :15 GLU GTT-FASTING 101 mg/dL (Normal) Comments: 2HR GTT FASTING GLU GTT-FASTING from 1107:T43231K. Range: 70-110 Comments: GLUCOSE TOLERANCE TEST Reference [...] LIPID/LIVER. Range: 211-911 :31 HgA1C , Office (50807) Comments: [facility] HgA1C , Office 4.8 % (Normal) Range: [...] mg/dL (Normal) Range: 34-200 Comments: Performed At: [address] [id number] :28 IRON+TIBC IRON SATURATION 18.8 % (Normal) [...] (Normal) Range: 0.34-4.82 :08 HgA1C , Office (38788) Comments: [facility] HgA1C , Office 5.3 % (Normal) Range: 4.6 - 7.1 :08 Blood Glucose , Office (70457) Comments: [facility] Blood Glucose , Office 149 (Normal) :08 [...] was performed using the TPSA method for theDiDanger Room GamingsiNovaSparks chemistry system.Values obtained with different assay methods cannot be usedinterchangably.When changing PSA assays in the course of monito ring apatient, additionaly sequential testing should be carriedout to confirm baseline values. :08 TESTOST [id number] TESTOSTER %FREE 3.46 % (Normal) Range: 1.50-4.20 TESTOSTER,FREE 6.92 ng/dL (Normal) Range: 5.00-21.00 TESTOSTER,TOTAL 200 ng/dL (Abnormal) Range: 241-827 :08 TSH 1.29 {uIU/mL} (Normal) Range: 0.34-4.82 :08 VIT B12 1503 348 pg/mL (Normal) Range: 211-911 Comments: Performed At: [facility] Dlrkyu2352 [place], [place] [id number] At: BNLab[address] [id number] :00 CULT, DP WOUND ANAEROBIC CULT See Note (Normal) Comments: No anaerobic bacteria isolated. GRAM STAIN See Note (Normal) Comments: GRAM STAIN 2+ WHITE BLOOD CELLS 3+ RED CELL STROMA NO ORGANISMS SEEN WOUND CULTURE No growth aerobically. (Normal) :57 HgA1C , Office (32169) HgA1C , Office 5.4 % (Normal) Range: 4.6 - 7.1 :57 Blood Glucose , Office (18666) Blood Glucose , Office 164 (Normal) Plan of Care Name Dates Details Instructions Benign essential hypertension : Eprescribed prescriptions (G8553) [...] except foot Planned Observations Vitamin D Hydroxy (61398)Indication: Vitamin D deficiency On: 3-Rgd-168407:43 Request MICROALBUMIN: CREATININE RATIO (96785) AND (09883)Indication: Diabetes mellitus type 2, controlled, without complications On: 2-Pvf-422430:39 Request HGB A1C (91823)Indication: Diabetes mellitus type 2, controlled, without complications On: 0-Xaz-355857:39 Request C-REACT PROT HIGH SENS(hsCRP) (00241)Indication: Abnormal C-reactive protein On: 3-Vvp-308855:35 Request LIPID PANEL (06245)Indication: Arteriosclerosis of both carotid arteries On: 2-Fxy-219874:24 Request Vitamin B-12 (cyanocobalamin) (50752)Indication: B12 deficiency On: 8-Dlm-773480:46 Request HEPATITIS C ANTIBODY (12204)Indication: Encounter for hepatitis C virus screening test for high risk patient On: 8-Nva-814993:42 Request CBC W/AUTO DIFF WBC (78521)Indication: Other and unspecified hyperlipidemia On: :41 Request METABOLIC PANEL, COMPREHENSIVE (15082)Indication: Other and unspecified hyperlipidemia On: :41 Request PSA (PROSTATE SPECIFIC ANTIGEN) (V76.44)Indication: Encounter for screening for malignant neoplasm of prostate (Renamed from Screening for prostate cancer) On: :41 Request CBC, PLATELETS & AUT DIFF (62837)Indication: Atrial fibrillation On: 12-Nlq-146924:40 Request METABOLIC PANEL, COMPREHENSIVE (35299)Indication: Upper GI bleed On: :21 Request Comments: stat CBC W/AUTO DIFF WBC (90307)Indication: Pancytopenia, acquired On: 59-Gcu-933692:21 Request Comments: stat URINALYSIS, W/ MICRO (93657)Indication: Hematuria, microscopic On: :23 Request CBC with auto diff (46411)Indication: Diabetes mellitus type 2, controlled, without complications On: :35 Request METABOLIC PANEL, COMPREHENSIVE (78797)Indication: Diabetes mellitus type 2, controlled, without complications On: :35 Request CBC W/AUTO DIFF WBC (10447)Indication: Atrial fibrillation On: 0-Vdl-514630:55 Request METABOLIC PANEL, COMPREHENSIVE (74848)Indication: Atrial fibrillation On: 0-Iff-802136:55 Request PSA (PROSTATE SPECIFIC ANTIGEN) (V76.44)Indication: Encounter for screening for malignant neoplasm of prostate (Renamed from Screening for prostate cancer) On: 0-Ula-199659:50 Request LIPID PANEL (83620)Indication: Other and unspecified hyperlipidemia On: :50 Request VITAMIN B-12 (CYANOCOBALAMIN) (87745)Indication: B12 deficiency On: :50 Request T4, FREE (THYROXINE) (60307)Indication: Atrial fibrillation On: :49 Request T3, FREE (TRIDOTHYRONINE) (96081)Indication: Atrial fibrillation On: 0-Xnu-776968:49 Request TSH (52051)Indication: Atrial fibrillation On: 2-Jzy-917199:48 Request CBC W/AUTO DIFF WBC (31737)Indication: Diabetes mellitus type 2, controlled, without complications On: 5-Aam-770428:48 Request METABOLIC PANEL, COMPREHENSIVE (76703)Indication: Diabetes mellitus type 2, controlled, without complications On: 1-Tis-240335:48 Request URINE VI CULTURE-MERCY COL COUNT (76822)Indication: Abnormal urine On: 73-Zms-919046:12 Request METABOLIC PANEL, COMPREHENSIVE (82256)Indication: Diabetes mellitus type 2, controlled, without complications On: 5-Rkp-026139:51 Request VITAMIN B-12 (CYANOCOBALAMIN) (49746)Indication: B12 deficiency On: 39-Chx-388610:38 Request CBC W/AUTO DIFF WBC (57464)Indication: DIABETES MELLITUS WITH RENAL MANIFESTATIONS; TYPE II OR UNSPECIFIED TYPE, NOT STATED UNCONTROLLED On: 62-Aja-934479:37 Request METABOLIC PANEL, COMPREHENSIVE (16635)Indication: DIABETES MELLITUS WITH RENAL MANIFESTATIONS; TYPE II OR UNSPECIFIED TYPE, NOT STATED UNCONTROLLED On: 56-Qmy-278790:37 Request LIPID PANEL (41235)Indication: Other and unspecified hyperlipidemia On: 82-Nyg-491010:37 Request LIPID PANEL (43147)Indication: Other and unspecified hyperlipidemia On: 73-Gor-051212:36 Request MICROALBUMIN: CREATININE RATIO (98560) AND (46007)Indication: Diabetes mellitus type 2, controlled, without complications On: 59-Tjc-978156:36 Request CBC WITH MANUAL DIFF (51641)Indication: Diabetes mellitus type 2, controlled, without complications On: 91-Dlq-090179:36 Request METABOLIC PANEL, COMPREHENSIVE (68318)Indication: Diabetes mellitus type 2, controlled, without complications On: 85-Kxa-944306:36 Request PSA (PROSTATE SPECIFIC ANTIGEN) (V76.44)Indication: Screening for prostate cancer On: 4-Vkv-693250:28 Request LIPID PANEL (86673)Indication: Other and unspecified hyperlipidemia On: 7-Lsr-399174:27 Request CBC WITH MANUAL DIFF (34757)Indication: Diabetes mellitus type 2, controlled, without complications On: 3-Hcy-684943:27 Request METABOLIC PANEL, COMPREHENSIVE (96582)Indication: Diabetes mellitus type 2, controlled, without complications On: 5-Taw-106508:27 Request VITAMIN B-12 (CYANOCOBALAMIN) (65918)Indication: B12 deficiency On: 1-Edq-698651:27 Request HgA1C , Office (27202)Indication: Diabetes mellitus type 2, controlled, without complications On: 1-Wsx-164721:53 Request MICROALBUMIN: CREATININE RATIO (67874) AND (38607)Indication: Proteinuria On: :22 Request Comments: 3 months VITAMIN B-12 (CYANOCOBALAMIN) (99916)Indication: B12 deficiency On: 3-Rzb-758577:22 Request Comments: 3 months METABOLIC PANEL, COMPREHENSIVE (50967)Indication: Diabetes mellitus type 2, controlled, without complications On: 5-Cde-538198:09 Request Comments: 3 months CBC WITH MANUAL DIFF (00502)Indication: Diabetes mellitus type 2, controlled, without complications On: :08 Request Comments: 3 months LIPID PANEL (57964)Indication: Diabetes mellitus type 2, controlled, without complications On: 0-Cvg-906670:08 Request Comments: 3 months HgA1C , Office (69282)Indication: Diabetes mellitus type 2, controlled, without complications On: 6-Tba-044852:18 Request LIPID PANEL (08746)Indication: Other and unspecified hyperlipidemia On: 1-Nxf-997091:40 Request VITAMIN B-12 (CYANOCOBALAMIN) (47692)Indication: B12 deficiency On: :39 Request CBC WITH MANUAL DIFF (89166)Indication: Diabetes mellitus type 2, controlled, without complications On: :39 Request METABOLIC PANEL, COMPREHENSIVE (55600)Indication: Diabetes mellitus type 2, controlled, without complications On: 5-Iac-351790:39 Request PSA (PROSTATE SPECIFIC ANTIGEN) (V76.44)Indication: Screening for prostate cancer On: 47-Mpm-304249:26 Request LIPID PANEL (24580)Indication: Other and unspecified hyperlipidemia On: 01-Fsa-208266:14 Request CBC WITH MANUAL DIFF (51922)Indication: B12 deficiency On: 26-Pnn-566825:14 Request METABOLIC PANEL, COMPREHENSIVE (72825)Indication: Diabetes mellitus type 2, controlled, without complications On: 91-Dif-449208:14 Request MICROALBUMIN: CREATININE RATIO (95509) AND (80308)Indication: Diabetes mellitus type 2, controlled, without complications On: 13-Lro-337831:14 Request VITAMIN B-12 (CYANOCOBALAMIN) (94829)Indication: B12 deficiency On: 91-Iub-397134:13 Request VITAMIN B-12 (CYANOCOBALAMIN) (29937)Indication: B12 deficiency On: :42 Request METABOLIC PANEL, COMPREHENSIVE (13453)Indication: Benign essential hypertension On: :42 Request CBC WITH MANUAL DIFF (10995)Indication: Benign essential hypertension On: :42 Request LIPID PANEL (66558)Indication: Other and unspecified hyperlipidemia On: :42 Request MICROALBUMIN: CREATININE RATIO (19500) AND (20804)Indication: Diabetes mellitus type 2, controlled, without complications On: :42 Request CBC WITH MANUAL DIFF (92080)Indication: Diabetes mellitus type 2, controlled, without complications On: 97-Knc-467894:14 Request METABOLIC PANEL, COMPREHENSIVE (17533)Indication: Diabetes mellitus type 2, controlled, without complications On: 82-Jjz-221702:14 Request LIPID PANEL (83206)Indication: Other and unspecified hyperlipidemia On: 46-Mtg-145559:14 Request PSA (PROSTATE SPECIFIC ANTIGEN) (V76.44)Indication: Screening for prostate cancer On: 31-Nwg-420741:54 Request TSH (56512)Indication: Diabetes mellitus type 2, controlled, without complications On: 34-Cxh-932338:54 Request MICROALBUMIN: CREATININE RATIO ([id number]) AND ([id number])Indication: Diabetes mellitus type 2, controlled, without complications On: 89-Kfa-052860:54 Request METABOLIC PANEL, COMPREHENSIVE ([id number])Indication: Benign essential hypertension On: 10-Fai-278228:53 Request CBC WITH MANUAL DIFF ([id number])Indication: B12 deficiency On: :53 Request VITAMIN B-12 (CYANOCOBALAMIN) ([id number])Indication: B12 deficiency On: 97-Bqu-319983:53 Request LIPID PANEL (05806)Indication: Other and unspecified hyperlipidemia On: 01-Hpm-804914:53 Request Metabolic Panel, Basic (62407)Indication: Benign essential hypertension On: 7-Lbl-006045:04 Request Comments: STAT -- for CT being done at [facility] on 07/25/10. TSH ([id number])Indication: Benign essential hypertension On: :08 Request Metabolic Panel, Comprehensive ([id number])Indication: Benign essential hypertension On: : Request CBC with manual diff ([id number])Indication: B12 deficiency On: : Request Vitamin B-12 (cyanocobalamin) (69030)Indication: B12 deficiency On: : Request TSH ([id number])Indication: Diabetes mellitus type 2, controlled, without complications On: 83-Jzw-663132:53 Request METABOLIC PANEL, COMPREHENSIVE (25414)Indication: Diabetes mellitus type 2, controlled, without complications On: 06-Agw-360819:53 Request CBC, PLATELETS & AUT DIFF ([id number])Indication: Diabetes mellitus type 2, controlled, without complications On: 43-Cnu-814133:53 Request VITAMIN B-12 (CYANOCOBALAMIN) (34063)Indication: B12 deficiency On: 97-Qfr-549403:52 Request Blood Glucose , Office ([id number])Indication: Diabetes mellitus type 2, controlled, without complications On: 4-Zfw-313745:38 Request IRON BINDING CAPACITY (TIBC) ([id number])Indication: Anemia On: 22-Nrw-862383:45 Request FOLIC ACID SERUM ([id number])Indication: Anemia On: 4-Sif-245811:11 Request RETICULOCYTE COUNT MANUL ([id number])Indication: Anemia On: 2-Yif-420297:11 Request LDH (LD) (LACTATE DEHYDROGENASE) (93853)Indication: Anemia On: 0-Bva-496549:11 Request IRON BINDING CAPACITY (TIBC) (83676)Indication: Anemia On: 5-Onn-677731:11 Request IRON ([id number])Indication: Anemia On: :11 Request FERRITIN ([id number])Indication: Anemia On: 1-Jmv-877381:11 Request CBC WITH MANUAL DIFF ([id number])Indication: Anemia On: 1-Ioh-371072:11 Request LIPID PANEL (25900)Indication: Other and unspecified hyperlipidemia On: 54-Bzt-867770:26 Request PSA (PROSTATE SPECIFIC ANTIGEN) (V76.44)Indication: Screening for prostate cancer On: 79-Ynz-077464:20 Request TSH ([id number])Indication: DIABETES MELLITUS WITH RENAL MANIFESTATIONS; TYPE II OR UNSPECIFIED TYPE, NOT STATED UNCONTROLLED On: :18 Request MICROALBUMIN: CREATININE RATIO ([id number]) AND ([id number])Indication: DIABETES MELLITUS WITH RENAL MANIFESTATIONS; TYPE II OR UNSPECIFIED TYPE, NOT STATED UNCONTROLLED On: :18 Request METABOLIC PANEL, COMPREHENSIVE ([id number])Indication: Benign essential hypertension On: :18 Request CBC WITH MANUAL DIFF ([id number])Indication: Anemia On: :18 Request VITAMIN B-12 (CYANOCOBALAMIN) (90481)Indication: B12 deficiency On: :18 Request CULTURE, SPUTUM ([id number])Indication: Unspecified Diagnosis On: :10 Request METABOLIC PANEL, COMPREHENSIVE (67531)Indication: Other and unspecified hyperlipidemia On: 22-Ywy-482292:22 Request LIPID PANEL ([id number])Indication: Other and unspecified hyperlipidemia On: 83-Yrv-170725:22 Request CBC WITH MANUAL DIFF ([id number])Indication: Anemia On: 67-Pfx-233081:22 Request LDH (LD) (LACTATE DEHYDROGENASE) ([id number])Indication: Anemia On: 87-Oky-759276:46 Request RETICULOCYTE COUNT MANUL ([id number])Indication: Anemia On: 09-Aqs-521979:46 Request FERRITIN ([id number])Indication: Anemia On: 27-Tpc-695098:46 Request IRON BINDING CAPACITY (TIBC) ([id number])Indication: Anemia On: 76-Sin-977433:46 Request IRON ([id number])Indication: Anemia On: 28-Pnq-702545:46 Request LIPID PANEL ([id number])Indication: Other and unspecified hyperlipidemia On: 49-Ffb-780674:46 Request URINALYSIS W/O MICRO ([id number])Indication: Benign essential hypertension On: 01-Oic-132059:45 Request TSH ([id number])Indication: Benign essential hypertension On: 07-Mce-623821:45 Request CBC WITH MANUAL DIFF ([id number])Indication: Anemia On: 65-Xiq-374010:45 Request METABOLIC PANEL, COMPREHENSIVE ([id number])Indication: Benign essential hypertension On: :45 Request VITAMIN B-12 (CYANOCOBALAMIN) ([id number])Indication: B12 deficiency On: :45 Request PSA (PROSTATE SPECIFIC ANTIGEN)Indication: Screening for prostate cancer On: 12-Krw-254282:05 Request METABOLIC PANEL, COMPREHENSIVE ([id number])Indication: Benign essential hypertension On: : Request CBC WITH MANUAL DIFF ([id number])Indication: Benign essential hypertension On: :04 Request LIPID PANEL (10313)Indication: Other and unspecified hyperlipidemia On: 78-Ulm-021766:04 Request METABOLIC PANEL, COMPREHENSIVE ([id number])Indication: Benign essential hypertension On: 8-Msw-049192: Request VITAMIN B-12 (CYANOCOBALAMIN) ([id number])Indication: B12 deficiency On: 7-Efk-569854:04 Request CBC WITH MANUAL DIFF ([id number])Indication: Anemia On: : Request LIPID PANEL (31345)Indication: Other and unspecified hyperlipidemia On: 7-Ypv-683599:04 Request MICROALBUMIN: CREATININE RATIO ([id number]) AND ([id number])Indication: Diabetes mellitus type 2, controlled, without complications On: 5-Lph-582740:03 Request GLUCOSE TOLERANCE TEST (GTT) 2 hour ([id number])Indication: Diabetes mellitus type 2, controlled, without complications On: :03 Request Blood Glucose , Office ([id number])Indication: Diabetes mellitus type 2, controlled, without complications On: 5-Fhx-657620:31 Request Comments: done-alex [facility] ([id number])Indication: Anemia On: :36 Request VITAMIN B-12 (CYANOCOBALAMIN) ([id number])Indication: Anemia On: :36 Request LDH (LD) (LACTATE DEHYDROGENASE) ([id number])Indication: Anemia On: :36 Request IRON BINDING CAPACITY (TIBC) ([id number])Indication: Anemia On: :36 Request IRON ([id number])Indication: Anemia On: :36 Request HAPTOGLOBIN ([id number])Indication: Anemia On: :36 Request FOLIC ACID SERUM ([id number])Indication: Anemia On: :36 Request FERRITIN ([id number])Indication: Anemia On: :36 Request CBC WITH MANUAL DIFF ([id number])Indication: Anemia On: :36 Request PSA (PROSTATE SPECIFIC ANTIGEN), SCREENING ([id number])Indication: Anemia On: :25 Request VITAMIN B-12 (CYANOCOBALAMIN) ([id number])Indication: B12 deficiency On: :25 Request MICROALBUMIN URINE QUANT ([id number]) On: :24 Request TSH ([id number])Indication: Benign essential hypertension On: :24 Request URINALYSIS W/O MICRO ([id number])Indication: Benign essential hypertension On: :24 Request CBC WITH MANUAL DIFF ([id number])Indication: Anemia On: :24 Request METABOLIC PANEL, COMPREHENSIVE ([id number])Indication: Benign essential hypertension On: :24 Request Blood Glucose , Office ([id number])Indication: Cellulitis and abscess of leg, except foot On: 1-Rhr-176709:07 Request Planned Encounters Medical; [facility] 3 Month FU - On: 26-Jun-2018 10:30 [facility] Gloria Alvarado DO, DO Gloria A Planned Procedures Flu Vaccine (Quadrivalent) 32429An: On: 16-Mar-2018 Intent Jeff Alvarado DOa A Joce DRAPER Gloria A Comments: Lot: #[id number]: 12/13/18Site: L dltd, IMDose prefilled syringegiven by: Brandyn reviewed and ABN signed ELECTROCARDIOGRAM, COMPLETE (ECG) On: 16-Mar-2018 Intent ([id number])By: Gloria Alvarado DO A Fast Comments: atrial fib with cvr - left axis no acute st t/wave changes Gloria DRAPER A Cartoid DopplerBy: Joce DRAPER Gloria A On: 21-Oct-2017 Intent Joce DRAPER Gloria A Comments: november Radiology - Chest- PA and LatBy: On: 06-Oct-2017 Intent Joce DO Gloria A Fast DO, Gloria A Comments: stat Spirometry ([id number])By: Fast DO, On: 19-Feb-2017 Intent Gloria A Fast DO, Gloria A Comments: mod severe obstruction ELECTROCARDIOGRAM, COMPLETE (ECG) On: 19-Feb-2017 Intent ([id number])By: Joce DO Gloria A Joce Comments: ekg showed ireg ireg- afib, left axis nonspecific twave changes DO, Gloria A Soxhjpupv-Xme-Tvjb ([id number])By: Fast On: 14-Jan-2017 Intent DO, Gloria A Fast DO, Gloria A Comments: left lower Radiology - Knee - Right - Weight On: 14-Jan-2017 Intent BearingBy: Fast DO, Gloria A Fast DO, Gloria A Overnight Pulse OX ([id number])By: Joce On: 01-Jan-2017 Intent DO, Gloria A Fast DO, Gloria A Radiology - Cervical SpineBy: Fast On: 22-Nov-2016 Intent DO, Gloria A Fast DO, Gloria A Cartoid DopplerBy: Fast DO, Gloria A On: 22-Nov-2016 Intent Fast DO, Gloria A MARIE (Ankle Brachial Index) On: 22-Nov-2016 Intent ([id number])By: Fast DO, Gloria A Fast DO, Gloria A Overnight Pulse OX ([id number])By: Fast On: 22-Nov-2016 Intent DO, Gloria A Fast DO, Gloria A Overnight Pulse OX ([id number])By: Joce On: 26-Jun-2015 Intent DO, Gloria A Fast DO, Gloria A Overnight Pulse OX ([id number])By: Joce On: 23-May-2015 Intent DO, Gloria A Fast DO, Gloria A PNEUM VAC ADLT/IMUMNOSPR, SBC/INTRM On: 02-May-2015 Intent ([id number])By: Joce DO Gloria A Joce Comments: [id number] dltdprefilledDesha, SMA DO, Gloria A Ultrasound - RenalBy: Tami REED, On: 09-Aug-2014 Intent Palma SPECIMEN HANDLING/TRANSPORT On: 09-Aug-2014 Intent ([id number])By: Ashlee Garrett CNP Overnight Pulse OX ([id number])By: Joce On: 25-Mar-2014 Intent DO, Gloria A Fast DO, Gloria A Prevnar 13 ([id number])By: Joce DRAPER, On: 25-Mar-2014 Intent Gloria A Fast DO, Gloria A Comments: lot: [id number]: 04/2015site/route: L del/IMamt:0.5mLVIS signed when applicableMINOR Mendoza Six Minute Walk Assessment On: 17-Mar-2014 Intent ([id number])By: Carlos Enrique, Nurse Aerosol Treatment ([id number])By: Tami On: 16-Nov-2013 Intent Ashlee REED Pulse Oximetry (05214)By: Tami On: 16-Nov-2013 Intent Ashlee REED Eprescribed prescriptions On: 03-Nov-2013 Intent ([id number])By: Fast DO, Gloria A Fast DO, Gloria A Eprescribed prescriptions On: 24-Jun-2013 Intent (G8553)By: Natalie Rocha FLU VAC, SPLIT, >3 YEARS, INTRAMUSC On: 22-Mar-2013 Intent ([id number])By: Natalie Rocha Comments: Lot #:[id number] date:mount given:0.5mlRoute: IMSite given: L dltdVIS and ABN signedGiven by: ISAIAH Delcid ADMINISTRATION OF INFLUENZA VIRUS On: 22-Mar-2013 Intent VACCINE (G0008)By: Natalie Rocha Eprescribed prescriptions On: 22-Mar-2013 Intent (G8553)By: Natalie Rocha Inhaler Demo ([id number])By: Joce DRAPER, On: 19-Aug-2012 Intent Gloria A Fast DO, Gloria A Spirometry ([id number])By: Aj, On: 19-Aug-2012 Nargis Estrada Comments: good effort flat =-mod severe obst- Eprescribed prescriptions On: 19-Aug-2012 Intent (G8553)By: Natalie Rocha ADMINISTRATION OF INFLUENZA VIRUS On: 10-Apr-2012 Intent VACCINE (G0008)By: Aj, Comments: Lot #:[id number] date:13Amount given:prefilled syringeSite given:L Dltd, IMGiven by: ISAIAH DelcidVIS signed Natalie FLU VAC, SPLIT, >3 YEARS, INTRAMUSC On: 10-Apr-2012 Intent ([id number])By: Natalie Rocha MARIE (Ankle Brachial Index) On: 13-Aug-2011 Intent ([id number])By: Fast DO, Gloria A Fast Comments: at desk DO, Gloria A MARIE (Ankle Brachial Index) On: 24-Jul-2011 Intent ([id number])By: Fast DO, Gloria A Fast DO, Gloria A Spirometry ([id number])By: Aj, On: 24-Jul-2011 Intent Natalie Comments: just had a cold he is getting over so do at next appt TD Injection , IM ([id number])By: On: 24-Jul-2011 Intent Natalie Rocha Comments: received at [place] 2008 FLU VAC, SPLIT, >3 YEARS, INTRAMUSC On: 09-Apr-2011 Intent ([id number])By: Emmy Marcos LPN Comments: Lot #[id number]-L arm, IMDose prefilledgiven by:Emmy ADMINISTRATION OF INFLUENZA VIRUS On: 09-Apr-2011 Intent VACCINE (G0008)By: Emmy Marcos LPN CT - ChestBy: Fast DO, Gloria A Fast On: 30-Jan-2011 Intent DO, Gloria A MARIE (Ankle Brachial Index) On: 19-Jul-2010 Intent ([id number])By: Marissa Villarreal RN MARIE (Ankle Brachial Index) On: 06-Jul-2010 Intent ([id number])By: Fast DO, Gloria A Fast DO, Gloria A CT - ChestBy: Fast DO, Gloria A Fast On: 06-Jul-2010 Intent DO, Gloria A CT - ChestBy: Fast DO, Gloria A Fast On: 22-Sep-2009 Intent DO, Gloria A Comments: october Renal DopplerBy: Fast DO, Gloria A On: 15-May-2009 Intent Fast DO, Gloria A ADMINISTRATION OF PNEUMOCOCCAL On: 05-May-2009 Intent VACCINE (G0009)By: Fast DO, Gloria A Fast DO, Gloria A PNEUM VAC ADLT/IMUMNOSPR, SBC/INTRM On: 05-May-2009 Intent ([id number])By: Fast DO, Gloria A Fast Comments: Lot #[id number]/8/11Site-right deltoidDose0.5mggiven by:CDH DO, Gloria A Pulse Oximetry ([id number])By: Joce DRAPER, On: 30-Aug-2008 Intent Gloria A Fast DO, Gloria A Comments: 97 Spirometry (04387)By: Joce DRAPER, On: 30-Aug-2008 Intent Gloria A Fast DO, Gloria A Comments: good effort and curve mod obstruction Pulse Oximetry ([id number])By: Aj, On: 28-Dec-2007 Intent Natalie Comments: 95% Spirometry (14178)By: Joce DRAPER, On: 28-Dec-2007 Intent Gloria A Fast DO, Glorai A Comments: good effort and curve- mod obstruction EKG (63495)By: Jeff Alvarado DOa A On: 28-Dec-2007 Intent Fast DO, Gloria A Comments: ekg showed normal sinus rhythym, normal axis, no acute st/t wave changes MARIE (Ankle Brachial Index) On: 05-Aug-2007 Intent ([id number])By: Stephanie Lu MARIE (Ankle Brachial Index) On: 01-Jul-2007 Intent ([id number])By: Gloria Alvarado DO A Joce Comments: jul DO Gloria A MARIE (Ankle Brachial Index) On: 06-Aug-2006 Intent ([id number])By: Marissa Villarreal RN Rocephon Injection, 1 Gm On: 24-Jul-2006 Intent ([id number])By: Grace Morgan LPN Comments: 2 gm infusing into 100 cc ns lot# bcxd 09/21 IV Infusion ([id number])By: Eddie GUERIN, On: 24-Jul-2006 Intent Peg MARIE (Ankle Brachial Index) On: 24-Jul-2006 Intent (23582)By: Gloria Alvarado DO Comments: Jeff fowler DOa A Rocephin Injection, 2 Gram On: 23-Jul-2006 Intent ([id number])By: HETAL SYKES CNP Comments: IV Rocephin -Given with 100cc NS 1530 - 1550BCXD 029Apr 2008Given by [facility] infused well. Area free of redness or swelling. Rocephin Injection, 2 Gram On: 21-Jul-2006 Intent ([id number])By: Gloria Alvarado DO A Joce Comments: 2 gms of IV rocphin given Gloria DRAPER Instructions Name Dates Details Benign essential hypertension : How to access [...] Benign essential hypertension Encounters Office Visit On: 20-Apr-2018 10:56 Encounter Reason: [...] for Physical exam: just saw oncologist and tip puncher- weight down 6 more pounds but not exercising like was so needs motivation- - he not wearing bipap - just because- - no more dizzy spells no falls- YEAST resolved- he was admitted again for foot infection- on left now has post op shoe- and he has followup with [employer] on - - bp is good- he [...] level (getting better) and is sleeping well (estela End: 16-Mar-2018 20:31 g a hard time wearing cpap machine at night). The patient's appetite is normal. Nutrition: normal/adequate. Exercises 0 days per week. Sleeps on average 9 hours per night. Normal bowel and bladder habit s. Current emotional problems include sleep disturbances (cpap makes it hard to sleep). Note for Physical exam: just saw oncologist and tip puncher- weight down 6 more pounds but not [...] is transitioning into care from a hospital ([facility] for cellulitis of L leg. Admit 12/20 [...] Reason for ER visit: note: (started at [facility] for weakness and End: 06-Oct-2017 16:01 black stools, was then transported to [facility] The patient does not feel well (still [...] cough got deeper- so I called in levaquin- that has helped some- and did have temp sat not today- last chemo september 17- saw Jose and at that time his hemoglobin 8.8- so they lowered diovan and metoprolol as bp was runn ing toolow- bp is better- then got black stools on went to er and they transferred him to [facility] - his hemoglobin 4.7- got 4 units of blood and had egd and showed avms- gi said was ok to sta rt xarelto whenever but his plateltes low and need to see his counts stable - he took his last chemo already- friday had a fall getting off toilet legs gaveout- has pt at home/ vns- now has way from [place] to get up- no hit head or [...] make an appt for him to have clearan ce and willhave to discuss xarelto with [...] week(s) ago at a store (at the bank). Symptoms include recurring falls and ongoing leg [...] 15:43 [facility] Office Visit On: 9-Luis-2017 11:04 Encounter Reason: Follow up for chronic [...] The patient does have durable power of bellows filler and living will. The patient has noticed lack of energy. Other providers contributing to the patient's c are are tip puncher, gastrologist, surgeon (cardiovascular) and other: (opthmologist, neurologist).Encounter [...] oxygen so encuraged him to followup with [facility] so they can adjust for him and [...] t now. Need to finish paperwork from [facility] for oxygen...see message saved from 07-11-14 about [facility]), has decreased energy level and is sleeping [...] The patient does have durable power of bellows filler and living will. The patient has noticed lack of energy. Other providers contributing to the patient's c are are tip puncher, gastrologist, surgeon (cardiovascular) and other: (opthmologist, neurologist).Encounter [...] but got infectiona fter walking alot at [place] and now clearedf up- he just saw [...] ED) and peripheral vascular disease. weight : ([facility] [employer] weekly- 279). Note for Follow up for chronic medical issues: doing weight watchers and [employer] and down 20 pounds and motivated and [...] to join weight watchers- and going to [employer] 4 days a week- he sees uri in next month- has no gerd- negrais working on neuropathy- he sees breathing has [...] Fol low up for chronic medical issues: hard [...] up for chronic medical issues: bps at [facility] office was 120/60 have been good- weight [...] said he quit exercising still seeing the train engineer and she is really mad at him-- bp parishEncnatalie Diagnosis: DIABETES MELLITUS WITH RENAL MANIFESTATIONS; TYPE [...] Dr Yeboah-- who sent him to the train engineer-- - breathing is b End: 08-Feb-2008 10:30 [...] deficiency, anemia). 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 De Anda at [facility]- and he has been diagnosed with highchol- [...] (682.6) [facility] Payers MedicareTRICARE FOR [facility] [place], [place]; a guarantor
--- OUTSIDE RECORDS SUMMARY | 2018-07-10 09:30 | XMS RPT_ITS ---
:1945 Author Organization OHIP Support Name Relationship Address Phone AFSHIN OLIVER NaturalDaughter Unavailable + R Unknown Unavailable Unavailable MARCO DURHAM [address] + [place] [address] MELODY, AFSHIN NaturalDaughter Unavailable + R Unknown Unavailable Unavailable MARCO DURHAM [address] + [place] [address] MELODY, AFSHIN NaturalDaughter Unavailable + R Unknown Unavailable Unavailable MARCO DURHAM [address] + [place] [address] MELODY, AFSHIN NaturalDaughter Unavailable + R Unknown Unavailable Unavailable MARCO DURHAM [address] + [place] [address] MELODY, AFSHIN NaturalDaughter Unavailable + R Unknown Unavailable Unavailable MARCO DURHAM [address] + [place] [address] MELODY, AFSHIN NaturalDaughter Unavailable + R Unknown Unavailable Unavailable MARCO DURHAM [address] + [place] [address] MELODY, AFSHIN NaturalDaughter Unavailable + R Unknown Unavailable Unavailable MARCO DURHAM [address] + [place] [address] MELODY, AFSHIN NaturalDaughter Unavailable + R Unknown Unavailable Unavailable MARCO DURHAM [address] + [place] [address] MELODY, AFSHIN NaturalDaughter Unavailable + R Unknown Unavailable Unavailable MARVA, MARCO Nielson [address] + [place] [address] MELODY, AFSHIN NaturalDaughter Unavailable + R Unknown Unavailable Unavailable MARVA, MARCO Nielson [address] + [place] [address] MELODY, AFSHIN NaturalDaughter Unavailable + R Unknown Unavailable Unavailable MARVA, MARCO Nielson [address] + [place] [address] MELODY, AFSHIN NaturalDaughter Unavailable + R Unknown Unavailable Unavailable [address]CO [address] + [place] [address] EMLODY, AFSHIN NaturalDaughter . + ., [place] . R Unknown Unavailable Unavailable [address]CO [address] + [place] [address] MELODY, AFSHIN NaturalDaughter Unavailable + R Unknown Unavailable Unavailable MARVA, MARCO Nielson [address] + [place] [address] MELODY, AFSHIN NaturalDaughter Unavailable + R Unknown Unavailable Unavailable MARVA, MARCO Nielson [address] + [place] [address] MELODY, AFSHIN NaturalDaughter . + [place] [address] R Unknown Unavailable Unavailable MARVAMARCO ROBLES [address] + [place] [address] MELODY, AFSHIN NaturalDaughter . + [place] [address] R Unknown Unavailable Unavailable MARVAMARCO ROBLES [address] + [place] [address] MELODY, AFSHIN NaturalDaughter . + [place] [address] R Unknown Unavailable Unavailable MARVAMARCO ROBLES [address] + [place] [address] MELODY, AFSHIN NaturalDaughter . + [place] [address] R Unknown Unavailable Unavailable MARVA, MARCO [address] + [place] [address] MELODY, AFSHIN NaturalDaughter Unavailable + [place] [address] R Unknown Unavailable Unavailable MARVA, MARCO [address] + [place] [address] MELODY, AFSHIN NaturalDaughter Unavailable + R Unknown Unavailable Unavailable MARVA, MARCO [address] + [place] [address] MELODY, AFSHIN NaturalDaughter Unavailable + [place] [address] R Unknown Unavailable Unavailable MARVA, MARCO Nielson [address] + [place] [address] MELODY, AFSHIN NaturalDaughter Unavailable + [place] [address] R Unknown Unavailable Unavailable MARVA, MARCO [address] + [place] [address] MELODY, AFSHIN NaturalDaughter . + [place] [address] R Unknown Unavailable Unavailable MARVA, MARCO [address] [phone]~330-6 [place] [address] MELODY, AFSHIN NaturalDaughter Unavailable + R Unknown Unavailable Unavailable MARVA, MARCO [address] [phone]~330-6 [place] [address] MELODY, AFSHIN NaturalDaughter . + [place] [address] R Unknown Unavailable Unavailable MARVA, MARCO [address] [phone]~330-6 [place] [address] MELODY, AFSHIN NaturalDaughter . + [place] [address] R Unknown Unavailable Unavailable MARVA, MARCO [address] [phone]~330-6 [place] [address] MELODY, AFSHIN NaturalDaughter . + [place] [address] R Unknown Unavailable Unavailable MARVA, MARCO [address] [phone]~330-6 [place] [address] MELODY, AFSHIN NaturalDaughter . + [place] [address] R Unknown Unavailable Unavailable MARVA, MARCO [address] [phone]~330-6 [place] [address] MELODY, AFSHIN NaturalDaughter . + [place] [address] R Unknown Unavailable Unavailable MARVA, MARCO [address] [phone]~330-6 [place] [address] MELODY, AFSHIN NaturalDaughter Unavailable + [place] [address] R Unknown Unavailable Unavailable MARVA, MARCO [address] [phone]~330-6 [place] [address] MELODY, AFSHIN NaturalDaughter Unavailable + [place] [address] R Unknown Unavailable Unavailable MARVA, MARCO [address] [phone]~330-6 [place] [address] MELODY, AFSHIN NaturalDaughter Unavailable + [place] [address] R Unknown Unavailable Unavailable MARVA, MARCO [address] [phone]~330-6 [place] [address] MELODY, AFSHIN NaturalDaughter Unavailable + [place] [address] R Unknown Unavailable Unavailable MARVA, MARCO [address] [phone]~330-6 [place] [address] MELODY, AFSHIN NaturalDaughter Unavailable + [place] [address] R Unknown Unavailable Unavailable MARVA, MARCO [address] [phone] [place] [address] MELODY, AFSHIN NaturalDaughter . + [place] [address] R Unknown Unavailable Unavailable MARVAMARCO ROBLES [address] [phone]~330-6 [place] [address] MELODY, AFSHIN NaturalDaughter . + [place] [address] R Unknown Unavailable Unavailable MARCO DURHAM [address] [phone]~330-6 [place] [address] MELODY, AFSHIN NaturalDaughter . + [place] [address] R Unknown Unavailable Unavailable MARVAMARCO ROBLES [address] [phone]~330-6 [place] [address] MELODY, AFSHIN NaturalDaughter . + [place] [address] R Unknown Unavailable Unavailable MARCO DURHAM [address] [phone]~330-6 [place] [address] MELODY, AFSHIN NaturalDaughter . + [place] [address] R Unknown Unavailable Unavailable [address]CO [address] [phone]~330-6 [place] [address] MELODY, AFSHIN NaturalDaughter . + [place] [address] R Unknown Unavailable Unavailable MARCO DURHAM [address] [phone]~330-6 [place] [address] MELODY, AFSHIN NaturalDaughter . + [place] [address] R Unknown Unavailable Unavailable MARVAMARCO ROBLES [address] [phone]~330-6 [place] [address] MELODY, AFSHIN NaturalDaughter . + [place] [address] R Unknown Unavailable Unavailable MELODY, AFSHIN NaturalDaughter . + [place] [address] R Unknown Unavailable Unavailable R Unknown Unavailable Unavailable MARCO DURHAM [address] [phone]~330-6 [place] [address] R Unknown Unavailable Unavailable MARVAMARCO ROBLES [address] [phone] [place] [address] Care Team Providers Name Role Phone [place]ano Alcala Attending Unavailable Isckarus, Mansour Referring Unavailable Fast, Fany Primary Care Unavailable Salina Díaz Attending Unavailable Fast, Fany Referring Unavailable Fast, Fany Primary Care Unavailable Isckarus, Mansour Consulting Unavailable Jopperi, Titi Admitting Unavailable [facility], Orestes Attending Unavailable Jopperi, Titi Referring Unavailable Fast, Fany Primary Care Unavailable Fascione, Gloria Consulting Unavailable [facility], Orestes Consulting Unavailable [facility], Orestes Attending Unavailable Yordan, Orestes Referring Unavailable Fast, Fany Primary Care Unavailable Fast, Fany Primary Care Unavailable Jopperi, Titi Admitting Unavailable Jopperi, Titi Referring Unavailable KotsonisFermin F Attending Unavailable Jopperi, Titi Admitting Unavailable Jopperi, Titi Attending Unavailable Jopperi, Titi Referring Unavailable Fast, Fany Primary Care Unavailable Jopperi, Titi Consulting Unavailable Jopperi, Titi Admitting Unavailable NaveentsFermin panchal F Attending Unavailable Jopperi, Titi Referring Unavailable Fast, Fany Primary Care Unavailable KotsFermin panchal F Consulting Unavailable Jopperi, Titi Admitting Unavailable Jopperi, Titi Attending Unavailable Jopperi, Titi Referring Unavailable Fast, Fany Primary Care Unavailable Jopperi, Titi Consulting Unavailable Jopperi, Titi Admitting Unavailable Jopperi, Titi Referring Unavailable Fast, Fany Primary Care Unavailable Fascione, Gloria Consulting Unavailable [facility], Orestes Attending Unavailable [place]ano Germain Attending Unavailable Fast, Fany Referring Unavailable Fast, Fany Primary Care Unavailable [place]ano Germain Attending Unavailable Isckarus, Marybeth Attending Unavailable Isckarus, Mansour Referring Unavailable Fast, Fany Primary Care Unavailable Koram, May Jaleesa Attending Unavailable Melita, Prince Admitting Unavailable Fast, Fany Primary Care Unavailable Melita, Prince Consulting Unavailable Mariaa Torres Attending Unavailable Fast, Fany Primary Care Unavailable Melita, Prince Admitting Unavailable Koram, May Jaleesa Attending Unavailable Jv Salazar Attending Unavailable Martin Jv Referring Unavailable Fast, Fany Primary Care Unavailable Alin Isbell Consulting Unavailable Micho[place]ano Germain Attending Unavailable Michoacano Germain Referring Unavailable Fast, Fany Primary Care Unavailable Michoacano Germain Attending Unavailable [place]ano Germain Referring Unavailable Fast, Fany Primary Care Unavailable Fast, Fany Attending Unavailable Fast, Fany Referring Unavailable Fast, Fany Primary Care Unavailable Michoacano Germain Attending Unavailable Fast, Fany Referring Unavailable Fast, Fany Primary Care Unavailable Bre, Salina Attending Unavailable Fast, Fany Referring Unavailable Fast, Fany Primary Care Unavailable Isckarus, Mansour Consulting Unavailable Maggie Astudillo Attending Unavailable Isckarus, Mansour Attending Unavailable Fast, Fany Referring Unavailable Fast, Fany Primary Care Unavailable Isckarus, Mansour Consulting Unavailable Fast, Fany Attending Unavailable Fast, Fany Referring Unavailable Fast, Fany Primary Care Unavailable Fast, Fany Primary Care Unavailable Alma Delia Zavala Attending Unavailable Germain, Michoacano Attending Unavailable Fast, Fany Referring Unavailable Fast, Fany Primary Care Unavailable Isckarus, Mansour Attending Unavailable Fast, Fany Referring Unavailable Fast, Fany Primary Care Unavailable Isckarus, Mansour Consulting Unavailable Fast, Fany Primary Care Unavailable Bre, Salina Attending Unavailable Bre, Salina Referring Unavailable Bre, Salina Attending Unavailable Fast, Fany Referring Unavailable Fast, Fany Primary Care Unavailable Isckarus, Mansour Consulting Unavailable Fast, Fany Primary Care Unavailable Teresa Sneed Attending Unavailable Isckarus, Mansour Attending Unavailable Fast, Fany Referring Unavailable Fast, Fany Primary Care Unavailable Isckarus, Mansour Consulting Unavailable Michoacano Germain Attending Unavailable Fast, Fany Referring Unavailable Fast, Fany Primary Care Unavailable Rach Butcher Attending Unavailable [place]ano Germain Attending Unavailable Fast, Fany Primary Care Unavailable Isckarus, Mansour Attending Unavailable Isckarus, Mansour Referring Unavailable Fast, Fany Primary Care Unavailable Isckarus, Mansour Consulting Unavailable [place], Michoacano Attending Unavailable Cari, Michoacano Referring Unavailable Fast, Fany Primary Care Unavailable [place], Michoacano Consulting Unavailable [place], Michoacano Attending Unavailable [place], Michoacano Referring Unavailable Fast, Fany Primary Care Unavailable Bre, Salina Attending Unavailable Isckarus, Mansour Attending Unavailable Isckarus, Mansour Attending Unavailable Fast, Fany Primary Care Unavailable Fast, Fany Referring Unavailable Jopperi, Titi Admitting Unavailable Fermin Burdick Attending Unavailable Jopperi, Titi Referring Unavailable Fast, Fany Primary Care Unavailable Fermin Burdick Consulting Unavailable Isckarus, Mansour Attending Unavailable Fast, Fany Referring Unavailable Fast, Fany Primary Care Unavailable Isckarus, Mansour Consulting Unavailable Jv Carrera Attending Unavailable Yordan, Orestes Referring Unavailable Jopperi, Titi Admitting Unavailable Yordan, Orestes Attending Unavailable Jopperi, Titi Referring Unavailable Fast, Fany Primary Care Unavailable FascioneGloria Consulting Unavailable Yordan, Orestes Consulting Unavailable Isckarus, Mansour Attending Unavailable Fast, Fany Referring Unavailable Fast, Fany Primary Care Unavailable Isckarus, Mansour Consulting Unavailable Isckarus, Mansour Attending Unavailable Isckarus, Mansour Referring Unavailable Fast, Fany Primary Care Unavailable Isckarus, Mansour Consulting Unavailable QAVI, JUDITH SARA Admitting Unavailable ZAYNAB, RIO NABI Consulting Unavailable ASLAMAKIL Attending Unavailable Fast DO, Fany A Attending Unavailable Fast DO, Fany A Referring Unavailable Fast DO, Fany A Consulting Unavailable QAVI, JUDITH SARA Admitting Unavailable Fast, Anastasia A. Primary Care Unavailable Elroy Hough Consulting Unavailable MD AKIL FITZGERALD Attending Unavailable BONNIE FALCON Consulting Unavailable ZAYNAB, RIO N Consulting Unavailable Purpose Purpose PROBLEMS PROBLEMS DATE TYPE CONDITION / CODE ATTENDING STATUS SOURCE 05/20/2018 Unknown L03.116 - Cellulitis Kotsonis, Active [facility] of left lower limb / Fermin [facility] L03.116(ICD-10) Hospital Repository 05/14/2018 Unknown C34.12 - Malignant Isckarus, Active [facility] neoplasm of upper [facility] lobe, left bronchus Hospital or lung / Repository C34.12(ICD-10) 04/23/2018 Unknown I73.9 - Peripheral Jv Carrera Active [facility] vascular disease, Community unspecified / Hospital I73.9(ICD-10) Repository 02/05/2018 Unknown Z45.2 - Encounter for Isckarus, Active [place] adjustment and [facility] management of Hospital vascular access Repository device / Z45.2(ICD-10) 12/10/2017 Unknown I65.23 - Occlusion Fast, Fany Active [place] and stenosis of Community bilateral carotid Hospital arteries / Repository I65.23(ICD-10) 10/24/2017 Unknown K92.2 - [place] Germain Active [place] Gastrointestinal Community hemorrhage, Hospital unspecified / Repository K92.2(ICD-10) 10/24/2017 Unknown I48.2 - Chronic [place] Germain Active [facility] atrial fibrillation / Community I48.2(ICD-10) Hospital Repository 10/24/2017 Unknown I25.10 - [place] Germain Active [place] Atherosclerotic heart Community disease of [facility] coronary artery Repository without angina pectoris / I25.10(ICD-10) 10/15/2017 Unknown Z79.899 - Other long Isckarus, Active [place] term (current) drug [facility] therapy / Hospital Z79.899(ICD-10) Repository 10/15/2017 Unknown D64.81 - Anemia due Isckarus, Active [place] to antineoplastic [facility] chemotherapy / Hospital D64.81(ICD-10) Repository 10/15/2017 Unknown D70.1 - Isckarus, Active [facility] Agranulocytosis [facility] secondary to cancer Hospital chemotherapy / Repository D70.1(ICD-10) 10/15/2017 Unknown D64.9 - Anemia, Isckarus, Active [place] unspecified / [facility] D64.9(ICD-10) Hospital Repository 10/15/2017 Unknown D50.0 - Iron Isckarus, Active [place] deficiency anemia [facility] secondary to blood Hospital loss (chronic) / Repository D50.0(ICD-10) 09/30/2017 Active Anemia, unspecified / ASLAMALISSAAKIL Active [facility] D64.9(ICD-10) Clinic Other [place] Repository 09/30/2017 Active Melena / ASLAM, AKIL Active [place] K92.1(ICD-10) Clinic Other [place] Repository 09/30/2017 Active Other fecal ASLAM, AKIL Active [facility] abnormalities / Clinic Other R19.5(ICD-10) [place] Repository 09/29/2017 Active Epistaxis / ASLAM, AKIL Active [facility] R04.0(ICD-10) Clinic Other [place] Repository 09/29/2017 Active [facility] deficiency ASLAM, AKIL Active [facility] anemia secondary to Clinic Other blood loss (chronic) [place] / D50.0(ICD-10) Repository 09/30/2017 Admitting Unknown / MD CANELO Active [facility] diagnosis UNK(Unknown) [facility] Repository 09/25/2017 Unknown I49.9 - Cardiac [place] Germain Active [facility] arrhythmia, Community unspecified / Hospital I49.9(ICD-10) Repository 08/14/2017 Unknown I27.21 - Secondary [place] Germain Active [place] pulmonary arterial Community hypertension / Hospital I27.21(ICD-10) Repository 08/14/2017 Unknown Z95.1 - Presence of [place]ano Germain Active [facility] aortocoronary bypass Community graft / Z95.1(ICD-10) Hospital Repository 08/14/2017 Unknown R06.00 - Dyspnea, [place] Germain Active [facility] unspecified / Community R06.00(ICD-10) Hospital Repository 06/25/2017 Unknown Z29.8 - Encounter for Bre, Active [facility] other specified [place] Community prophylactic measures Hospital / Z29.8(ICD-10) Repository PROCEDURES PROCEDURES No Procedure Records FoundVITAL SIGNS VITAL SIGNS No Vital Signs Records FoundRESULTS RESULTS DISCHARGE SUMMARY Observed: 05/17/2018 Status: F Source: [place] 11:58 AM [facility] REPOSITORY [facility] Medical Records Department [address] [place] [id number] Discharge Summary 05/17/18 1146 MR#: [id number] Acct: [id number] Name: JV DURHAM JrAxel Rep #: [id number] : 1945 72 From: Fermin Burdick MD PCP: Fany Hobson DO Status: DIS IN Y Location: [facility] [id number] Discharge Date and Diagnosis Date of Admission: 05/15/18 Date of Discharge: 05/17/18 - Secondary Discharge Diagnosis Chronic Problems (Last Updated 05/15/18 @ 13:39 by Titi Moore DO) 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 Germain [facility]; [facility] 05/16/[address] Naylor @ [facility] History of coronary artery stent placement (Chronic 12/23/06) AGI-HZC-TZMV anastomosis-LAD w/ Taxus 2.75 x 8 mm and POBA- PDA 12/23/2006 History of cardioversion (Chronic 12/2016) Secondary pulmonary arterial hypertension (Chronic) Atherosclerosis of coronary artery of [place] heart without angina pectoris (Chronic) CABG x 2 HERRERA-LAD, SVG-OM 02/14/2006 RQM-CUB-OMIN anastomosis-LAD w/ Taxus 2.75 x 8 mm and POBA- PDA 12/23/2006 H/O coronary artery bypass surgery (Chronic 02/14/06) CABG x 2 HERRERA-LAD, SVG-OM 02/14/[address] 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 For the previous few days, patient was having some general and last night noted that his left leg was warm and red. Did not resolve and so presented to the emergency room. Patient was diagnosed with cellulitis and started on vancomycin. This is similar to the patient's prior episodes of cellulitis which this is now his third episode of left lower extremity cellulitis. Patient does have an ulcer on his left great toe that is healing up and is following up with wound care. There is been no other new wounds that he is aware of. Patient states that he feels chilled but no overt fevers. Hospital Course: 1. LLE cellulitis from the left great toe wound - He presented to the hospital because of a new onset of left lower extremity redness. He was not short of breath and was afebrile at home. Attempted to call his PCP but could not get through because she does not work on Friday and therefore presented to the ER. He has remained afebrile and has not had a leukocytosis. He has completed almost a full day of vancomycin and Zosyn, and on the day of discharge his cellulitis was completely resolved. On exam his cellulitis was nonpurulent without fluctuance therefore he was discharged on Keflex 4 times daily for 10 days. I did discuss with him different possibilities including staying for 1 more night to try him on oral Keflex while he was here to make sure that he did not have any recurrence, he felt that if he could do Keflex here or Keflex at home he would rather be home and did say that he would follow-up with his PCP as soon as possible and if he did have a recurrence of redness or develops a fever or chills, he would return to the hospital. 2. Dark stools/GERD/H/o GI bleed/Gastric avm - On admission to the hospital his H AND H has been stable. He was denying any abdominal pain, lightheadedness, dizziness, and he was continued on his PPI. He will also follow-up as an outpatient for this issue. 3. His other medical diagnoses were evaluated and his home medications were continued were appropriate. - Physical Exam Vital Signs Temp Pulse Resp BP Pulse Ox 98.1 F 88 18 149/91 H 95 05/17/18 08:05 05/17/18 08:05 05/17/18 08:05 05/17/18 08:05 05/17/18 08:05 Oxygen Flow Rate (L/min) 2 Oxygen Delivery Method Nasal Cannula Weight: 275 lb 9.245 oz Body Mass Index (BMI) 39.5 Intake and Output for Last 24 Hours Intake Total 850 / 850 3702 / 3702 750 / 750 Output Total 1230 / 1230 1750 / 1750 Balance 850 / 850 2472 / 2472 -1000 / -1000 Microbiology Past 72 Hours 05/15/18 12:01 Blood Culture - Preliminary Discharge Activity: No Restrictions Call your doctor if you observe: Fever of 101 or Higher, Coldness, Increased Pain, Numbness or Tingling, Shortness of breath, Dizziness Home Medications: Medications to take at Discharge Fenofibrate [Tricor] 145 mg PO LUNCH 05/06/13 Folic Acid 1 mg PO DAILY@1200 05/06/13 Tiotropium [place] [Spiriva 18 MCG] 1 puff INHALATION DAILY 05/06/13 Duloxetine HCl 60 mg PO QHS 12/04/16 Pramipexole Di-HCl [Mirapex] 0.75 mg PO TID 12/04/16 aspirin 81 mg tablet,delayed release 81 mg PO DAILY 10/06/17 cyanocobalamin (vit B-12) 1,000 mcg tablet 1,000 mcg PO DAILY@1200 10/20/17 docusate sodium 100 mg capsule 100 mg PO BID cap 10/20/17 gabapentin 600 mg tablet 1,200 mg PO QHS tab 10/20/17 Budesonide [Pulmicort] 0.25 mg IH TID 10/23/17 Formoterol Fumarate [Perforomist] 20 mcg INHALATION BID 12/22/17 Multivit-Min/Iron Fum/Folic AC [Bptbp-Bqstyzm-Zashdkdz Tablet] 1 ea PO BID 12/22/17 Omeprazole 20 mg PO DAILY@1700 12/22/17 Digoxin 0.25 mg PO DAILY 01/27/18 furosemide 20 mg tablet 20 mg PO QODAY 02/25/18 furosemide 40 mg tablet 40 mg PO QODAY tab 02/25/18 rivaroxaban 10 mg tablet 10 mg PO DAILY 02/25/18 losartan 25 mg tablet 25 mg PO DAILY 03/02/18 Metoprolol Tartrate 25 mg PO QHS 03/19/18 Potassium Chloride [K-Tab ER] 20 meq PO DAILY 03/19/18 Pravastatin Sodium 40 mg PO QHS 03/19/18 Senna [Senokot] 1 tablet PO DINNER 03/19/18 Cephalexin [Keflex] 500 mg PO Q6 #40 cap 05/17/18 Following Prescrptions Were Given to Patient: Cephalexin [Keflex] 500 mg PO Q6 #40 cap Primary Care Physician: Fany Hobson DO [Primary Care Provider] - Please follow up with your Primary Care Physician in: [place] 2 days Disposition: Home Minutes spent on discharge:: 35 Patient Condition:: Good Medical Necessity - Tobacco Use Smoking Status: Former smoker Tobacco Use: Non-smoker Meaningful Use Info Meaningful Use Diagnoses (Choose all that apply): None applicable Code Visit Inpatient E AND M: 37871 Disch Hosp 05/17/18 1158 <Electronically signed by Fermin Burdick MD> Date Fermin Burdick MD Cosigner Signature (if applicable): Date CC: Fany Hobson DO; Fermin Burdick MD Signed DISCHARGE INSTRUCTION Observed: 05/17/2018 Status: F Source: [place] 8:03 AM [facility] RE[facility] Medical Records Department [address] [place] [address] Instructions for Home/Discharge Instructions 05/17/18801 MR#: [id number] Acct: [id number] Name: JV DURHAM Jr. Rep #: [id number] : 1945 72 From: Fermin Burdick MD PCP: Fany Hobson DO Status: ADM IN You will use the following diet at home:: Cardiac Your food should be the consistency of: Regular Your liquids should be the consistency of: Regular/Thin Discharge Activity: No Restrictions Call your doctor if you observe: Fever of 101 or Higher, Coldness, Increased Pain, Numbness or Tingling, Shortness of breath, Dizziness Allergies/Adverse Reactions: Allergies No Known Allergies Allergy (Verified 05/06/18 13:33) Medications to take at Discharge Fenofibrate [Tricor] 145 mg PO LUNCH 05/06/13 Folic Acid 1 mg PO DAILY@1200 05/06/13 Tiotropium [place] [Spiriva 18 MCG] 1 puff INHALATION DAILY 05/06/13 Duloxetine HCl 60 mg PO QHS 12/04/16 Pramipexole Di-HCl [Mirapex] 0.75 mg PO TID 12/04/16 aspirin 81 mg tablet,delayed release 81 mg PO DAILY 10/06/17 cyanocobalamin (vit B-12) 1,000 mcg tablet 1,000 mcg PO DAILY@1200 10/20/17 docusate sodium 100 mg capsule 100 mg PO BID cap 10/20/17 gabapentin 600 mg tablet 1,200 mg PO QHS tab 10/20/17 Budesonide [Pulmicort] 0.25 mg IH TID 10/23/17 Formoterol Fumarate [Perforomist] 20 mcg INHALATION BID 12/22/17 Multivit-Min/Iron Fum/Folic AC [Bsqgd-Ufjhcxt-Ypsifupg Tablet] 1 ea PO BID 12/22/17 Omeprazole 20 mg PO DAILY@1700 12/22/17 Digoxin 0.25 mg PO DAILY 01/27/18 furosemide 20 mg tablet 20 mg PO QODAY 02/25/18 furosemide 40 mg tablet 40 mg PO QODAY tab 02/25/18 rivaroxaban 10 mg tablet 10 mg PO DAILY 02/25/18 losartan 25 mg tablet 25 mg PO DAILY 03/02/18 Metoprolol Tartrate 25 mg PO QHS 03/19/18 Potassium Chloride [K-Tab ER] 20 meq PO DAILY 03/19/18 Pravastatin Sodium 40 mg PO QHS 03/19/18 Senna [Senokot] 1 tablet PO DINNER 03/19/18 Cephalexin [Keflex] 500 mg PO Q6 #40 cap 05/17/18 The following prescriptions were given: Cephalexin [Keflex] 500 mg PO Q6 #40 cap Primary Care Physician: Fany Hobson DO [Primary Care Provider] - Please follow up with your Primary Care Physician in: [place] 2 days Test Results: Test results from this visit will be discussed in further detail at your follow-up appointment, if applicable. 05/17/18 0803 <Electronically signed by Fermin Burdick MD> Date Fermin Buridck MD CC: Fany Hobson DO CBC W/DIFF, AUTOMATED Collected: 05/16/2018 Status: F Source: [place] 7:20 AM [facility] REPOSITORY TYPE CODE TESTS RESULT OUT OF RANGE REFERENCE UNITS LAB L100.1000 4.4-11.0 K/mm3 Normal WBC 7.9 LAB L100.1200 4.6-6.2 M/mm3 Low RBC 3.76 LAB L100.1300 13.0-16.5 g/dl Low HGB 9.6 LAB L100.1400 40-54 % Low HCT 32.1 LAB L100.1500 80-94 fL Normal MCV 85.4 LAB L100.1600 27.0-32.0 pg Low MCH 25.5 LAB L100.1700 32-36 g/gl Low MCHC 29.9 LAB L100.1810 11.6-14.6 % High RDW CV 18.0 LAB L100.1820 35.1-43.9 fl High RDW SD 54.5 LAB L100.1900 150-450 K/mm3 Normal PLT 208 LAB L100.2000 6.2-12.0 fl Normal MPV 10.4 LAB L100.2100 47-70 % Normal NEUT% 69.1 LAB L100.2200 19-41 % Low LY% 13.2 LAB L100.2300 0-10 % High MONO% 12.9 LAB L100.2400 0-5 % Normal EO% 3.9 LAB L100.2500 0-1 % Normal BASO% 0.5 LAB L100.2550 0.0-0.9 % Normal IM GRAN % 0.400 Result Comment: IG% - Immature Granulocytes (promyelocytes, myelocytes and metamyelocytes) > 1% indicates that a LEFT SHIFT is Present. LAB L100.2620 2.0-7.7 X10 3/uL Normal Absolute Neut 5.4 LAB L100.2720 0.83-4.51 X10 3/ul Normal Absolute Lymph 1.04 Performed By: #### L100.0100 #### [facility] [address] [place], [address] BASIC METABOLIC Collected: 05/16/2018 Status: F Source: [place] PROFILE (BMP) 7:20 AM [facility] REPOSITORY TYPE CODE TESTS RESULT OUT OF RANGE REFERENCE UNITS LAB L501.0100 74-106 mg/dL High GLU 109 Result Comment: Fasting Glucose result from 100 to 125 mg/dL suggests IMPAIRED HOMEOSTASIS per A.D.A. criteria. Please note revised GLUCOSE reference range effective 2017. LAB L501.1000 7-18 mg/dL Normal BUN 9 LAB L501.1100 0.70-1.30 mg/dL Normal CREAT,SERUM 0.91 Result Comment: The validity of the calculated GFR AND GFRAA in patients over 70 years has not been determined. Clinical correlation is essential. LAB L501.1110 >60 mL/min Normal EST GFR 87 Result Comment: Non- GFR Calc LAB L501.1115 >60 mL/min Normal EST GFR - AA 105 Result Comment: GFR Calc LAB L501.1255 ml/min Normal Estimated CRCL 75.76 LAB L501.1300 10-20 RATIO Low BUN/CRE 9.9 LAB L501.2200 8.5-10 mg/dL Low .1 CA 8.1 LAB L501.5300 136-14 mmol/L Normal 5 NA 142 LAB L501.5600 3.5-5. mmol/L Normal 1 K 3.7 LAB L501.5900 98-107 mmol/L Normal CL 105 LAB L501.6100 21.0-3 mmol/L Normal 2.0 CO2 29.0 LAB L501.6200 5-15 Normal GAP 8 Performed By: #### L500.2500 #### [facility] [address] [facility] [place], [address] EMERGENCY DEPARTMENT Observed: 05/15/2018 Status: F Source: [place] SUMMARY 4:17 PM [facility] REPOSITORY [facility] Medical Records Department [address] [place] [address] Emergency Department Summary 05/15/18 1320 MR#: [id number] Acct: [id number] Name: JV DURHAM Jr. Rep #: [id number] : 1945 72 From: Fredi Elizabeth MD PCP: Fany Hobson DO Status: ADM IN - ER Visit Summary Date of Service: 05/15/18 Chief Complaint: Left lower leg cellulitis History of Present Illness: The patient is a 72 M your prior MRSA cellulitis left lower leg x2 prior episodes. He states that he did redness to his left lower leg starting last night. Subjective fever and chills. Denies nausea, vomiting or diarrhea. Says he has really felt well for the last 2 days. Denies any history of DVT or PE. Physical Examination: Older male. Vital signs are stable. Afebrile. Initial pulse ox is 89%. No respiratory distress. H EENT exam is unremarkable. Neck nontender. Lungs clear to auscultation bilaterally. Heart regular rhythm no murmur. Abdomen soft nontender. Normal bowel sounds no peritoneal signs. Extremities moves all 4. 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 His left leg between the ankle and just below the knee he has cellulitis. There is mild edema. It is mildly tender to touch and warm and red. There are no signs of any septic joints. Neurologically is awake and alert. No focal motor deficits. Test Results: CBC shows a white count of 10. Hemoglobin is also his baseline. Electrolytes are unremarkable normal creatinine and gap. Emergency Department Course and Treatment: Patient was started on vancomycin. On repeat exam the cellulitis was now spreading up the medial thigh above the knee. There was still just redness. No black skin nor any bruising. Patient is not having significant pain. He will also be started on IV clindamycin and IV Zosyn. I were spoken to the hospitalist for admission. Treatment Plan: Hospitalist to admit Disposition: Admission Impression: Acute left lower extremity cellulitis History of prior left lower extremity MRSA cellulitis. History of A. fib Anticoagulated on Xarelto This note was generated with [employer] dictation software. It may contain incorrect words, spelling, and punctuation that were not noted in review of the chart prior to signing ED Disposition - Plan for ED Patient: Chief Complaint: Lower Extremity Injury Referrals: Fany Hobson, [Primary Care Provider] - What to do if you have Problems For any increased pain, shortness of breath, bleeding, nausea or vomiting, chest pain, or any unexpected problems, contact your Primary Care Provider. Call [facility] ([phone]) or report to the closest Emergency Room. Call 911 if necessary. 05/15/18 1617 <Electronically signed by Fredi Elizabeth MD> Date Fredi Elizabeth MD Cosigner Signature (If Indicated): Date CC: Fany Hobson DO MRSA WOUND DNA BY Collected: 05/15/2018 Status: F Source: [place] PCR 3:45 PM [facility] REPOSITORY TYPE CODE TESTS RESULT OUT OF REFERENCE UNITS RANGE LAB L8200.1100 Negative High MRSA POSITIVE RESULT Result Comment: RESULTS CALLED TO SHERLYN 05/15/18 Mark Anthony1 Ginna Arias. REPORT READ BACK BY SAME. LAB L8200.1150 Negative High SA RESULT POSITIVE Performed By: #### L8200.1075 #### [facility] [address] [place], [address] HISTORY AND PHYSICAL Observed: 05/15/2018 Status: F Source: [place] EXAM 1:45 PM [facility] REPOSITORY [facility] Medical Records Department [address] [place] [address] History and Physical 05/15/18 1336 MR#: [id number] Acct: [id number] Name: JV DURHAM Jr. Rep #: [id number] : 1945 72 From: Titi Moore DO PCP: Fany Hobson DO Status: ADM IN Y Location: [facility] [id number] Problem List (1) Left leg cellulitis Status: Acute History of Present Illness Date of Admission: 05/15/18 Chief Complaint: left leg redness. The patient is a 72 year old M a history of cellulitis presents with a 1 day history of left lower extremity redness. For the previous few days, patient was having some general and last night noted that his left leg was warm and red. Did not resolve and so presented to the emergency room. Patient was diagnosed with cellulitis and started on vancomycin. This is similar to the patient's prior episodes of cellulitis which this is now his third episode of left lower extremity cellulitis. Patient does have an ulcer on his left great toe that is healing up and is following up with wound care. There is been no other new wounds that he is aware of. Patient states that he feels chilled but no overt fevers. [] Past Medical History Past Medical History (Chronic Problems): Chronic Problems (Last Reviewed 05/06/18 @ 13:32 by Dagmar Strickland) Cellulitis (Chronic) Chronic atrial fibrillation (Chronic) angiolasty and stenting to BLE iliac arteries (Chronic 08/04/12) History of left heart catheterization (Chronic 12/04/16) Widely patent HERRERA and SVG grafts per [facility] 05/07/[address] Germain [facility]; [facility] 05/16/[address] Naylor @ [facility] History of coronary artery stent placement (Chronic 12/23/06) SRX-SXL-TBHH anastomosis-LAD w/ Taxus 2.75 x 8 mm and POBA- PDA 12/23/2006 History of cardioversion (Chronic 12/2016) Iron deficiency anemia due to chronic blood loss (Chronic) Gastric AVMs, September 2017 Cancer of upper lobe of left lung (Chronic) Secondary pulmonary arterial hypertension (Chronic) Atherosclerosis of coronary artery of [place] heart without angina pectoris (Chronic) CABG x 2 HERRERA-LAD, SVG-OM 02/14/2006 ASL-OWA-KAKG anastomosis-LAD w/ Taxus 2.75 x 8 mm and POBA- PDA 12/23/2006 H/O coronary artery bypass surgery (Chronic 02/14/06) CABG x 2 HERRERA-LAD, SVG-OM 02/14/[address] 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 Chronic atrial fibrillation (Chronic) I48.2 port placement (Acute) Secondary pulmonary arterial hypertension (Chronic) I27.21 Atherosclerosis of coronary artery of [place] heart without angina pectoris (Chronic) I25.10 CABG x 2 HERRERA-LAD, SVG-OM 02/14/2006 KKH-ECJ-ARKG anastomosis-LAD w/ Taxus 2.75 x 8 mm and POBA- PDA 12/23/2006 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 (Chronic) C34.12 Chemotherapy induced neutropenia (Resolved) D70.1, T45.1X5A Anemia (Acute) D64.9 COPD (chronic obstructive pulmonary disease) (Acute) J44.9 Dyspnea (Acute) R06.00 Diabetes (Acute) E11.9 Neuropathy (Acute) G62.9 Arthritis (Acute) M19.90 Obesity (Acute) E66.9 Alcohol dependence (Acute) F10.20 GERD (gastroesophageal reflux disease) (Acute) K21.9 DJD (degenerative joint disease) (Acute) M19.90 Vascular disease (Acute) I99.9 Renal disease (Acute) N28.9 Macular degeneration (Acute) H35.30 Arrhythmia (Acute) I49.9 Migraine (Acute) G43.909 Memory loss (Acute) R41.3 Hypotestosteronism (Acute) E34.9 Essential tremor (Acute) G25.0 Parkinsons (Acute) G20 Dementia (Acute) F03.90 HEBER (obstructive sleep apnea) (Acute) G47.33 Benign essential hypertension (Acute) I10 Hammertoes of both feet (Acute) M20.41, M20.42 Adenocarcinoma of lung, stage 1 C34.90 Gastric AVM Q27.33 Allergies No Known Allergies Allergy (Verified 05/06/18 13:33) Home Medications: Ambulatory Orders Medication Instructions Recorded Surgical History: Surgical History (Last Reviewed 05/06/18 @ 13:33 by Dagmar Strickland) angiolasty and stenting to BLE iliac arteries (Chronic) Onset Date: 08/04/12 History of left heart catheterization (Chronic) Onset Date: 12/04/16 Z98.890 Widely patent HERRERA and SVG grafts per [facility] 05/07/[address] Germain [facility]; [facility] 05/16/[address] Naylor @ [facility] History of coronary artery stent placement (Chronic) Onset Date: 12/23/06 Z95.5 GXK-VLV-BEYI anastomosis-LAD w/ Taxus 2.75 x 8 mm and POBA- PDA 12/23/2006 Left VATS procedure with wedge resection KATIE (Acute) History of cardioversion (Chronic) Onset Date: 12/2016 Z98.890 H/O coronary artery bypass surgery (Chronic) Onset Date: 02/14/06 Z95.1 CABG x 2 HERRERA-LAD, SVG-OM 02/14/[address] Fei Castillo, [facility] S/P CABG x 2 (Acute) Z95.1 Psychiatric History: No pertinent psych hx Lives: Spouse/ Significant Other Smoking Status: Former smoker Tobacco Use: Non-smoker Alcohol: None Drugs: None - *Family History Maternal Family History: Family History (Last Reviewed 05/15/18 @ 13:39 by Titi Moore DO) Sister Alcoholism Cancer Mother Arthritis Father Arthritis Brother Cancer Review of Systems Constitutional: Reports: Anorexia, Chills. Denies: Fever, Night Sweats Eyes: Denies: Blurred vision, Double vision HEENT: Denies: Head Aches, Sinus Congestion, Sinus Drainage Cardiovascular: Denies: Chest Pain, Palpitations Respiratory: Denies: Cough, Shortness of breath at rest, Sputum production Gastrointestinal: Reports: - - has noted some dark stool recently. Denies: Abdominal Pain, Hematochezia, Nausea, Vomiting Genitourinary: Denies: Dysuria Musculoskeletal: Reports: Leg Pain. Denies: Joint Pain, Joint Tenderness Skin: Reports: Rash - LLE. Denies: Wounds Neurological: Denies: Numbness, Tingling, Focal weakness Psychiatric: Denies: Anxiety, Depression Endocrine: Denies: Change in Body Habitus, Heat/ Cold Intolerance Hematologic/ Lymphatic: Denies: Easy Bruising, Easy Bleeding, Hx of blood clot Comment: A 10 point review of systems were negative except as mentioned in the history of present illness and the other review of systems. VTE Information - Inpt Only VTE Present on Admission: No VTE Mechan Device Prophylaxis: None VTE Pharm Prophylaxis ordered?: Yes - Physical Exam General: Alert, Cooperative, No apparent distress, - - Nontoxic. Afebrile. HEENT: Atraumatic, Normocephalic, - - No scleral icterus Oral: Moist Mucosa, No Gingival or Mucosal Lesions/ Ulcerations Neck: No Nodes, Thyroid Normal Size and Texture Lungs: Clear to auscultation, Normal air movement, No rhonchi, No wheeze Cardiovascular: Regular rate, Regular Rhythm, Normal S1, Normal S2, No murmurs Abdomen: Bowel Sounds Present, Soft, Non Tender, Non-Distended, No Hepato-splenomegaly Extremities: No edema, No Calf Tenderness Skin: - - Bright erythema of the anterior fisher on the left lower extremity. There is some warmth but no induration and no fluctuance. Superficial healing ulcer medial aspect of plantar aspect of the left great toe. No surrounding erythema nor any fluctuance noted. Musculoskeletal: No Tenderness to Palpation of Joints or Extremities, No Muscle Wasting Neurological: Sensory exam intact to light touch and pain, - - No clonus. Psych/Mental Status: Normal Affect, Appropriate Vital Signs Temp Pulse Resp BP Pulse Ox 36.8 C 52 L 18 151/64 H 95 05/15/18 10:37 05/15/18 12:53 05/15/18 12:53 05/15/18 12:53 05/15/18 12:53 Oxygen Delivery Method Room Air Weight: 126.552 kg Body Mass Index (BMI) 40.0 Laboratory Tests Past 24 Hrs WBC 10.0 RBC 4.08 L Hgb 10.3 L Hct 34.0 L MCV 83.3 MCH 25.2 L MCHC 30.3 L Assessment/Plan All Active Problems (Last Reviewed 05/06/18 @ 13:33 by Dagmar Strickland) Left leg cellulitis (Acute) Non-pressure chronic ulcer of other part of left foot with fat layer exposed (Acute) Educational circumstance (Acute) GI bleed (Acute) Left VATS procedure with wedge resection KATIE (Acute) port placement (Acute) Educational circumstance (Acute) Antineoplastic chemotherapy induced anemia (Resolved) Constipation (Acute) Chemotherapy induced neutropenia (Resolved) Anemia (Acute) COPD (chronic obstructive pulmonary disease) [...] feet (Acute) S/P CABG x 2 (Acute) 1. Left lower extremity cellulitis * Has tested positive for MRSA in the past * Will continue with vancomycin * Check a wound culture for MRSA * This is the patient's third bout and similar presentation, will do some decolonization of his nares bilaterally. * Patient has previously been treated with Bactrim and cefadroxil. 2. Left great toe wound * Per the patient, he is told that this is actually healing up better and is following up with Dr. Chatman * Consult wound care to continue with wound management * Again, this could be the nidus of his infection 3. Dark stools * No over to melena and certainly no hematochezia * Does have a history of gastric AVMs per history though the patient describes it as a hole in his stomach. I specified the patient that he is not had a perforation. * Check Hemoccult 4. DVT prophylaxis with low back rate heparin. If heme positive consider change of SCDs. Code Visit Inpatient E AND M: 02141 Init Hosp L3 05/15/18 7935 <Electronically signed by Titi Moore DO> Date Titi Moore DO Cosigner Signature: Date (if applicable) CC: Fany Hobson DO; Titi Teresa DO Signed Observed: 05/15/2018 Status: F Source: [place] CULTURE, BLOOD (WB) 12:01 PM [facility] REPOSITORY BC No growth in 5 days. Performed By: #### M200.1000 #### [facility] [address] [place], [address] CBC W/DIFF, AUTOMATED Collected: 05/15/2018 Status: F Source: [place] 11:30 AM [facility] REPOSITORY TYPE CODE TESTS RESULT OUT OF RANGE REFERENCE UNITS LAB L100.1000 4.4-11.0 K/mm3 Normal WBC 10.0 LAB L100.1200 4.6-6.2 M/mm3 Low RBC 4.08 LAB L100.1300 13.0-16.5 g/dl Low HGB 10.3 LAB L100.1400 40-54 % Low HCT 34.0 LAB L100.1500 80-94 fL Normal MCV 83.3 LAB L100.1600 27.0-32.0 pg Low MCH 25.2 LAB L100.1700 32-36 g/gl Low MCHC 30.3 LAB L100.1810 11.6-14.6 % High RDW CV 17.7 LAB L100.1820 35.1-43.9 fl High RDW SD 54.1 LAB L100.1900 150-450 K/mm3 Normal PLT 204 LAB L100.2000 6.2-12.0 fl Normal MPV 9.3 LAB L100.2100 47-70 % High NEUT% 83.8 LAB L100.2200 19-41 % Low LY% 6.6 LAB L100.2300 0-10 % Normal MONO% 8.6 LAB L100.2400 0-5 % Normal EO% 0.7 LAB L100.2500 0-1 % Normal BASO% 0.2 LAB L100.2550 0.0-0.9 % Normal IM GRAN % 0.100 Result Comment: IG% - Immature Granulocytes (promyelocytes, myelocytes and metamyelocytes) > 1% indicates that a LEFT SHIFT is Present. LAB L100.2620 2.0-7.7 X10 3/uL High Absolute Neut 8.4 LAB L100.2720 0.83-4.51 X10 3/ul Low Absolute Lymph 0.66 Performed By: #### L100.0100 #### [facility] [address] [facility]. [place], [place], [address] BASIC METABOLIC Collected: 05/15/2018 Status: F Source: [place] PROFILE (BMP) 11:30 AM [facility] REPOSITORY TYPE CODE TESTS RESULT OUT OF RANGE REFERENCE UNITS LAB L501.0100 74-106 mg/dL High GLU 134 Result Comment: Fasting Glucose result greater than or equal to 126 mg/dL suggests DIABETES MELLITUS per A.D.A. criteria. Please note revised GLUCOSE reference range effective 2017. LAB L501.1000 7-18 mg/dL Normal BUN 11 LAB L501.1100 0.70-1.30 mg/dL Normal CREAT,SERUM 0.96 Result Comment: The validity of the calculated GFR AND GFRAA in patients over 70 years has not been determined. Clinical correlation is essential. LAB L501.1110 >60 mL/min Normal EST GFR 81 Result Comment: Non- GFR Calc LAB L501.1115 >60 mL/min Normal EST GFR - AA 98 Result Comment: GFR Calc LAB L501.1255 ml/min Normal Estimated CRCL 71.82 LAB L501.1300 10-20 RATIO Normal BUN/CRE 11.4 LAB L501.2200 8.5-10 mg/dL Low .1 CA 8.1 LAB L501.5300 136-14 mmol/L Normal 5 NA 140 LAB L501.5600 3.5-5. mmol/L Normal 1 K 3.6 LAB L501.5900 98-107 mmol/L Normal CL 104 LAB L501.6100 21.0-3 mmol/L Normal 2.0 CO2 29.0 LAB L501.6200 5-15 Normal GAP 7 Performed By: #### L500.2500 #### [facility] [address] [facility] [place], [address] Observed: 05/15/2018 Status: F Source: [place] CULTURE, BLOOD (WB) 11:30 AM [facility] REPOSITORY BC No growth in 5 days. Performed By: #### M200.1000 #### [facility] [address] [place], [address] ONCOLOGY VISIT REPORT Observed: 05/06/2018 Status: F Source: [place] 2:16 PM [facility] REPOSITORY [facility] [address] [place] [address] OFFICE VISIT Date of Service: 05/06/18 1308 MR#: [id number] Acct: [id number] Name: JV DURHAM Jr. Rep #: [id number] : 1945 From: Marybeth Millan MD Age/Sex: 72/M Location: D Status: Signed - Problem List (1) 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 Status: Chronic (2) Iron deficiency anemia due to chronic blood [...] Musculoskeletal:: Denies: Back pain, Myalgia, Arthralgia Skin: Reports: Wounds - Left foot, chronic, under care of podiatry. Denies: Rash, Skin Changes Neurological:: Denies: Headache, Dizziness, Visual changes, Tinnitus, [...] Port okay. Negative for: JVD, bilateral Cardiac:: Normal S1, Normal S2, Irregular rate. Negative for: Murmur Lungs: Clear to auscultation, Diminished, Excusion symmetrical. Negative for: Rhonchi, Wheezes Abdomen:: Soft, Non-tender, Non-distended. Negative for: Hepatosplenomegaly Extremities:: Negative for: Cyanosis, Edema Neurological: Neuro grossly intact Skin:: Ecchymosis. Negative for: Rash Psychiatric:: Appropriate affect, Euthymic Lymphatics:: Negative for: Cervical lymphadenopathy, Supraclavicular lymphadenopathy Laboratory Data: Laboratory Tests Iron 26 L TIBC 381 Iron Saturation 19.7 6.8 L 6.9 L Ferritin 28 19 L Assessment and [...] Budesonide [Pulmicort] 0.25 mg IH TID 10/23/17 Digoxin 0.25 mg PO DAILY 01/27/18 furosemide 20 mg tablet 20 mg PO QODAY 02/25/18 Primary Care Provider: Fany Hobson DO Referring Provider: Marybeth Millan MD 05/06/18 1416 <Electronically signed by Marybeth Millan MD> Date Marybeth Millan MD Cosigner Signature: Date (if applicable) CC: Fany Hobson DO CBC W/DIFF, AUTOMATED Collected: 04/28/2018 Status: F Source: [place] 2:11 PM [facility] REPOSITORY Order Comment: Reason for Laboratory Test . TYPE CODE TESTS RESULT OUT OF RANGE REFERENCE UNITS LAB L100.1000 4.4-11.0 K/mm3 High WBC 11.6 LAB L100.1200 4.6-6.2 M/mm3 Low RBC 4.28 LAB L100.1300 13.0-16.5 g/dl Low HGB 11.1 LAB L100.1400 40-54 % Low HCT 36.7 LAB L100.1500 80-94 fL Normal MCV 85.7 LAB L100.1600 27.0-32.0 pg Low MCH 25.9 LAB L100.1700 32-36 g/gl Low MCHC 30.2 LAB L100.1810 11.6-14.6 % High RDW CV 18.3 LAB L100.1820 35.1-43.9 fl High RDW SD 57.1 LAB L100.1900 150-450 K/mm3 Normal PLT 247 LAB L100.2000 6.2-12.0 fl Normal MPV 9.8 LAB L100.2100 47-70 % High NEUT% 82.8 LAB L100.2200 19-41 % Low LY% 10.2 LAB L100.2300 0-10 % Normal MONO% 5.2 LAB L100.2400 0-5 % Normal EO% 1.3 LAB L100.2500 0-1 % Normal BASO% 0.3 LAB L100.2550 0.0-0.9 % Normal IM GRAN % 0.200 Result Comment: IG% - Immature Granulocytes (promyelocytes, myelocytes and metamyelocytes) > 1% indicates that a LEFT SHIFT is Present. LAB L100.2620 2.0-7.7 X10 3/uL High Absolute Neut 9.6 LAB L100.2720 0.83-4.51 X10 3/ul Normal Absolute Lymph 1.18 Performed By: #### L100.0100 #### [facility] [address] [place], [place], [address] COMPREHENSIVE METABOLIC Collected: 04/28/2018 Status: F Source: [facility] 2:11 PM [facility] REPOSITORY Order Comment: Reason for Laboratory Test . TYPE CODE TESTS RESULT OUT OF RANGE REFERENCE UNITS LAB L501.0100 74-106 mg/dL High GLU 183 Result Comment: Fasting Glucose result greater than or equal to 126 mg/dL suggests DIABETES MELLITUS per A.D.A. criteria. Please note revised GLUCOSE reference range effective 2017. LAB L501.1000 7-18 mg/dL Normal BUN 9 LAB L501.1100 0.70-1.30 mg/dL Normal CREAT,SERUM 1.15 Result Comment: The validity of the calculated GFR AND GFRAA in patients over 70 years has not been determined. Clinical correlation is essential. LAB L501.1110 >60 mL/min Normal EST GFR 66 Result Comment: Non- GFR Calc LAB L501.1115 >60 mL/min Normal EST GFR - AA 80 Result Comment: GFR Calc LAB L501.1255 ml/min Normal Estimated CRCL 59.95 LAB L501.1300 10-20 RATIO Low BUN/CRE 7.8 LAB L501.1500 6.4-8. g/dL Normal 2 T PROT 7.1 LAB L501.1800 3.2-5. g/dL Normal 0 ALB 3.3 LAB L501.1950 2.2-4. g/dL Normal 2 GLOB 3.8 LAB L501.2000 0.9-2. RATIO Normal 4 A/G 0.9 LAB L501.2200 8.5-10 mg/dL Low .1 CA 8.3 LAB L501.4100 15-37 U/L Normal AST 22 LAB L501.4305 45-117 U/L Normal ALK P 91 LAB L501.4405 16-61 U/L Normal ALT 18 LAB L501.4600 0.20-1 mg/dL Normal .00 T BILI 0.70 LAB L501.5300 136-14 mmol/L Normal 5 NA 140 LAB L501.5600 3.5-5. mmol/L Normal 1 K 3.8 LAB L501.5900 98-107 mmol/L Normal CL 105 LAB L501.6100 21.0-3 mmol/L Normal 2.0 CO2 27.0 LAB L501.6200 5-15 Normal GAP 8 Performed By: #### L500.4050, L503.6030, L503.6550 #### [facility] [address] [place], [place], [id number] IRON+IRON BINDING Collected: 04/28/2018 Status: F Source: [facility] 2:11 PM [facility] REPOSITORY Order Comment: Reason for Laboratory Test . TYPE CODE TESTS RESULT OUT OF REFERENCE UNITS RANGE LAB L503.6075 250-450 ug/dL TIBC High 494 LAB L503.6150 65-175 ug/dL Low IRON 34 LAB L503.6250 15.0-55.0 % Low IRON SATURATION 6.9 Performed By: #### L500.4050, L503.6030, L503.6550 #### [facility] [address] [place], [address] FERRITIN Collected: 04/28/2018 Status: F Source: [place] 2:11 PM [facility] REPOS[facility] Order Comment: Reason for Laboratory Test . TYPE CODE TESTS RESULT OUT OF REFERENCE UNITS RANGE LAB L503.6550 26-388 ng/mL Low FERRITIN 19 Performed By: #### L500.4050, L503.6030, L503.6550 #### [facility] [address] [place], [place], [address] BASIC METABOLIC Collected: 03/23/2018 Status: F Source: [place] PROFILE (BMP) 1:10 PM [facility] REPOS[facility] TYPE CODE TESTS RESULT OUT OF RANGE REFERENCE UNITS LAB L501.0100 74-106 mg/dL Normal GLU 82 Result Comment: Please note revised GLUCOSE reference range effective 2017. LAB L501.1000 7-18 mg/dL Normal BUN 11 LAB L501.1100 0.70-1.30 mg/dL Normal CREAT,SERUM 1.09 Result Comment: The validity of the calculated GFR AND GFRAA in patients over 70 years has not been determined. Clinical correlation is essential. LAB L501.1110 >60 mL/min Normal EST GFR 71 Result Comment: Non- GFR Calc LAB L501.1115 >60 mL/min Normal EST GFR - AA 85 Result Comment: GFR Calc LAB L501.1300 10-20 RATIO Normal BUN/CRE 10.1 LAB L501.2200 8.5-10.1 mg/dL CA Normal 8.7 LAB L501.5300 136-145 mmol/L NA Normal 141 LAB L501.5600 3.5-5.1 mmol/L K Normal 3.6 LAB L501.5900 98-107 mmol/L CL Normal 103 LAB L501.6100 21.0-32.0 mmol/L Normal CO2 31.0 LAB L501.6200 5-15 Normal GAP 7 Performed By: #### L500.2500, L501.5200 #### [facility] [address] [facility] [place], [address] MAGNESIUM Collected: 03/23/2018 Status: F Source: [place] 1:10 PM [facility] RE[facility] TYPE CODE TESTS RESULT OUT OF RANGE REFERENCE UNITS LAB L501.5200 1.6-2.6 mg/dL Normal MG 2.1 Performed By: #### L500.2500, L501.5200 #### [facility] [address] [place], [address] DIGOXIN LEVEL Collected: 03/23/2018 Status: F Source: [place] 1:10 PM [facility] TYPE CODE TESTS RESULT OUT OF RANGE REFERENCE UNITS LAB L501.7510 0.80-2.00 ng/mL Normal DIG 1.25 Performed By: #### L501.7510 #### [facility] [address] [place], [address] DISCHARGE SUMMARY Observed: 03/21/2018 Status: F Source: [place] 12:01 PM [facility] REPOSITORY [facility] Medical Records Department [address] [place] [address] Discharge Summary 03/21/18 1109 MR#: [id number] Acct: [id number] Name: JV DURHAM Rep #: [id number] : 1945 72 From: Orestes Farr MD PCP: Fany Hobson DO Status: ADM HERO Y Location: [place] [address] Discharge Date and Diagnosis - Problem List Patient Problems: Active and Suspected Problems (Last Reviewed 03/19/18 @ 15:11 by Titi Moore DO) Non-pressure chronic ulcer of other part of left foot with fat layer exposed (Acute) Date of Admission: 03/19/18 Date of Discharge: 03/21/18 - Primary Discharge Diagnosis Active and Suspected Problems (Last Reviewed 03/19/18 @ 15:11 by Titi Moore DO) Non-pressure chronic ulcer of other part of left foot with fat layer exposed (Acute) Acute left lower extremity cellulitis with left great toe chronic fat layer deep nonhealing ulcer; no osteomyelitis - Secondary Discharge Diagnosis Chronic Problems (Last Reviewed 03/19/18 @ 15:11 by Titi Moore DO) Left leg cellulitis (Chronic) Cellulitis (Chronic) Chronic atrial fibrillation (Chronic) angiolasty and stenting to BLE iliac arteries (Chronic 08/04/12) History of left heart catheterization (Chronic 12/04/16) Widely patent HERRERA and SVG grafts per [facility] 05/07/[address] Germain [facility]; [facility] 05/16/[address] Naylor @ [facility] History of coronary artery stent placement (Chronic 12/23/06) XEZ-CNZ-QEBZ anastomosis-LAD w/ Taxus 2.75 x 8 mm and POBA- PDA 12/23/2006 History of cardioversion (Chronic 12/2016) Iron deficiency anemia due to chronic blood loss (Chronic) Gastric AVMs, September 2017 Cancer of upper lobe of left lung (Chronic) Secondary pulmonary arterial hypertension (Chronic) Atherosclerosis of coronary artery of [place] heart without angina pectoris (Chronic) CABG x 2 HERRERA-LAD, SVG-OM 02/14/2006 REB-DDN-ZWMW anastomosis-LAD w/ Taxus 2.75 x 8 mm and POBA- PDA 12/23/2006 H/O coronary artery bypass surgery (Chronic 02/14/06) CABG x 2 HERRERA-LAD, SVG-OM 02/14/[address] Fei Castillo, [facility] 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 (Chronic) Hospital Course and Treatment Consultations 03/19/18 15:08 Consult: Onc/Wound/associate professor of musicology Routine Comment: Operations: None Summary of Care Provided: [] This 72-year-old gentleman with history of diabetes mellitus type 2, coronary artery disease status post CABG and stents, peripheral arterial disease in both lower legs status post stents in each leg, left upper lobe malignant neoplasm was admitted with chronic ulcer on left great toe for several months and was sent here from doctor's office after wound debridement. MRI of left foot was done and shows no osseous involvement/osteomyelitis. No fever or chills. The patient was seen and examined today. No fever or chills. Extent of redness has decreased. General: Alert, Oriented x3, Cooperative HEENT: Atraumatic, PERRLA, EOMI, Normocephalic Neck: Supple, No JVD, Negative Carotid Bruits Lungs: Clear to auscultation, No rhonchi, No wheeze, No rales, air entry diminished bilaterally Cardiovascular: Regular rate, Regular Rhythm, Normal S1, Normal S2, No murmurs, -diminished peripheral PT and dorsalis pedis arteries pulsation bilaterally. Abdomen: Bowel Sounds Present, Soft, Non Tender, Non-Distended Extremities: Capillary Refill Less than 3 Seconds, Edema Skin: Ulcer/ Wound - Small fat layer deep ulcer over medial left great toe. Dry. No discharge. Small superficial skin erosion on the right lower leg. Mild induration of left leg because of cellulitis. Musculoskeletal: No Tenderness to Palpation of Joints or Extremities, Arthritic Changes. Neurological: Cranial nerves II-XII grossly intact, - - Diminished sensation over both feet. Patient has diabetic neuropathy. Psych/Mental Status: Normal Affect, Appropriate 1. Acute left lower extremity cellulitis with left great toe chronic fat layer deep nonhealing ulcer; no osteomyelitis: Patient is being admitted on regular [facility] floor. Osteomyelitis is ruled out. Initially Gram stain of wound culture of left foot toes shows MRSA and growing beta-hemolytic streptococci. Final wound culture shows MRSA and rare gram-positive rods. Micrology called and organisms confirmed. The patient was treated by IV vancomycin for last 3 days. Patient was seen by Dr. Chatman and Dr. Kruger. Extent of left lower lobe cellulitis marked by pain has improved and is much decreased and has improved very minimal redness. In view of rapid cellulitis and clinical suspicion of strep in addition to MRSA, patient is discharged on total 2 weeks of Bactrim and 5 more days of cefadroxil. Follow-up with PCP in 1-2 weeks. Follow-up Dr. Sommer in 1-2 weeks. 2. Diabetes mellitus type 2, complicated with diabetic neuropathy and probably has retinopathy. 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 On Humalog sliding scale insulin. Blood sugar is controlled. A1c tomorrow a.m. 3. Multiple cardiac disease: Coronary artery status post CABG, stents, mild carotid stenosis, chronic atrial fibrillation. Peripheral atherosclerotic disease of bilateral lower extremity status post stents. * Arterial Doppler of lower extremities ordered. * Patient hadstress echo in November 2017 which was negative for ischemia. EF 60% with VPCs, couplets and triplets. Carotid Dopplerv in November 2017 shows less than 50% stenosis in both extracranial internal carotid arteries. * A. fib rate controlled * Continue with metoprolol and digoxin * Continue with Xarelto 4. Advanced care planning: Discussed CPR, intubation and PEG tube's. Patient wishes to be full code with intubation and PEG tube's at this time if needed. 5. DVT prophylaxis: Patient is anticoagulated. Discharge medication reconciliation done. Follow-up instructions completed. Patient is on digoxin magnesium is 2.1 and K4.0. Follow-up labs of digoxin level, BMP and magnesium for was given and patient was advised to follow with PCP to adjust the dose. There is drug drug interaction of Bactrim with digoxin. Discharge medications including addition of antibiotics Bactrim and cefadroxil discussed with the patient. Patient is being discharged home. Total time spent, exact 35 minutes on discharge meds reconciliation, examination, review of imaging and blood test and discussion with the patient on follow-up instructions. Discharge Activity: May Not Drive Call your doctor if you observe: Fever of 101 or Higher, Inability to urinate, Inability to have a bowel movement, Shortness of breath, Swelling in the ankles, Calf discomfort, Uncontrolled pain Home Medications: Medications to take at Discharge Fenofibrate [Tricor] 145 mg PO LUNCH 05/06/13 Folic Acid 1 mg PO DAILY@1200 05/06/13 Tiotropium [place] [Spiriva 18 MCG] 1 puff INHALATION DAILY 05/06/13 Duloxetine HCl 60 mg PO 1600 12/04/16 Pramipexole Di-HCl [Mirapex] 0.5 mg PO TID 12/04/16 aspirin 81 mg tablet,delayed release 81 mg PO QDAY 10/06/17 cyanocobalamin (vit B-12) 1,000 mcg tablet 1,000 mcg PO DAILY@1200 10/20/17 docusate sodium 100 mg capsule 100 mg PO BID cap 10/20/17 gabapentin 600 mg tablet 1,200 mg PO QHS tab 10/20/17 Budesonide [Pulmicort] 0.25 mg IH TID 10/23/17 Formoterol Fumarate [Perforomist] 20 mcg INHALATION BID 12/22/17 Multivit-Min/Iron Fum/Folic AC [Ebtzt-Qsvhxej-Hqhwcvep Tablet] 1 ea PO BID 12/22/17 Omeprazole 20 mg PO DAILY@1700 12/22/17 Digoxin 0.25 mg PO DAILY 01/27/18 furosemide 20 mg tablet 20 mg PO QODAY 02/25/18 furosemide 40 mg tablet 40 mg PO QODAY tab 02/25/18 rivaroxaban 10 mg tablet 10 mg PO DAILY 02/25/18 losartan 25 mg tablet 25 mg PO DAILY 03/02/18 Metoprolol Tartrate 25 mg PO QHS 03/19/18 Potassium Chloride [K-Tab ER] 20 meq PO DAILY 03/19/18 Pravastatin Sodium 40 mg PO QHS 03/19/18 Senna [Senokot] 1 tablet PO DINNER 03/19/18 Cefadroxil [Duracef] 500 mg PO BID #10 cap 03/21/18 Smz/Tmp Ds [Bactrim Ds] 1 tab PO BID #22 tab 03/21/18 Following Prescrptions Were Given to Patient: Cefadroxil [Duracef] 500 mg PO BID #10 cap Smz/Tmp Ds [Bactrim Ds] 1 tab PO BID #22 tab Other Amb Orders: Basic Metabolic Profile (BMP) Time Frame: 03/23/18, Location: Laboratory Digoxin Level Time Frame: 03/23/18, Location: Laboratory Magnesium Time Frame: 03/23/18, Location: Laboratory Primary Care Physician: Fany Hobson DO [Primary Care Provider] - Please follow up with your Primary Care Physician in: in 1- 2 weeks to check labs digoxin, BMP and Mg Please Follow Up With: Gloria Chatman DPM When: in 1-2 weeks for left foot ulcer/cellulitis Medical Necessity - Tobacco Use Smoking Status: Former smoker Meaningful Use Info Meaningful Use Diagnoses (Choose all that apply): None applicable Code Visit Inpatient E AND M: 35302 Disch Hosp 03/21/18 1201 <Electronically signed by Orestes Farr MD> Date Orestes Farr MD Cosigner Signature (if applicable): Date CC: Fany Hobson DO; Orestes Farr MD Signed BEDSIDE GLUCOSE Collected: 03/21/2018 Status: F Source: [place] 11:24 AM [facility] REPOSITORY TYPE CODE TESTS RESULT OUT OF REFERENCE UNITS RANGE LAB L501.080 70-110 mg/dL High BEDSIDE GLU 133 Result Comment: MANAGEMENT OF PATIENT CARE PER NURSING PROTOCOL Performed By: #### L501.080 #### [facility] Point of Care [address] [place] [address] DISCHARGE INSTRUCTION Observed: 03/21/2018 Status: F Source: [place] 11:09 AM [facility] REPOSITORY [facility] Medical Records Department [address] [place] [address] Instructions for Home/Discharge Instructions 03/21/18 1107 MR#: [id number] Acct: [id number] Name: JV DURHAM Rep #: [id number] : 1945 72 From: Orestes Farr MD PCP: Fany Hobson DO Status: ADM HERO - Discharge Diagnoses Current Active Problems: Current Active and Chronic Problems (Last Reviewed 03/19/18 @ 15:11 by Titi Moore DO) Left leg cellulitis (Chronic) Non-pressure chronic ulcer of other part of left foot with fat layer exposed (Acute) You will use the following diet at home:: Calorie/Carbohydrate Controlled (specify 1200, 1400, etc) - 1800 ADA diet, Cardiac Discharge Activity: May Not Drive Call your doctor if you observe: Fever of 101 or Higher, Inability to urinate, Inability to have a bowel movement, Shortness of breath, Swelling in the ankles, Calf discomfort, Uncontrolled pain Allergies/Adverse Reactions: Allergies No Known Allergies Allergy (Verified 03/02/18 15:21) Medications to take at Discharge Fenofibrate [Tricor] 145 mg PO LUNCH 05/06/13 Folic Acid 1 mg PO DAILY@1200 05/06/13 Tiotropium [place] [Spiriva 18 MCG] 1 puff INHALATION DAILY 05/06/13 Duloxetine HCl 60 mg PO 1600 12/04/16 Pramipexole Di-HCl [Mirapex] 0.5 mg PO TID 12/04/16 aspirin 81 mg tablet,delayed release 81 mg PO QDAY 10/06/17 cyanocobalamin (vit B-12) 1,000 mcg tablet 1,000 mcg PO DAILY@1200 10/20/17 docusate sodium 100 mg capsule 100 mg PO BID cap 10/20/17 gabapentin 600 mg tablet 1,200 mg PO QHS tab 10/20/17 Budesonide [Pulmicort] 0.25 mg IH TID 10/23/17 Formoterol Fumarate [Perforomist] 20 mcg INHALATION BID 12/22/17 Multivit-Min/Iron Fum/Folic AC [Rdixg-Yngwtzq-Owyelpyo Tablet] 1 ea PO BID 12/22/17 Omeprazole 20 mg PO DAILY@1700 12/22/17 Digoxin 0.25 mg PO DAILY 01/27/18 furosemide 20 mg tablet 20 mg PO QODAY 02/25/18 furosemide 40 mg tablet 40 mg PO QODAY tab 02/25/18 rivaroxaban 10 mg tablet 10 mg PO DAILY 02/25/18 losartan 25 mg tablet 25 mg PO DAILY 03/02/18 Metoprolol Tartrate 25 mg PO QHS 03/19/18 Potassium Chloride [K-Tab ER] 20 meq PO DAILY 03/19/18 Pravastatin Sodium 40 mg PO QHS 03/19/18 Senna [Senokot] 1 tablet PO DINNER 03/19/18 Cefadroxil [Duracef] 500 mg PO BID #10 cap 03/21/18 Smz/Tmp Ds [Bactrim Ds] 1 tab PO BID #22 tab 03/21/18 The following prescriptions were given: Cefadroxil [Duracef] 500 mg PO BID #10 cap Smz/Tmp Ds [Bactrim Ds] 1 tab PO BID #22 tab Orders to be completed after discharge: Basic Metabolic Profile (BMP) Time Frame: 03/23/18, Location: Laboratory Digoxin Level Time Frame: 03/23/18, Location: Laboratory Magnesium Time Frame: 03/23/18, Location: Laboratory Primary Care Physician: Fany Hobson DO [Primary Care Provider] - Please follow up with your Primary Care Physician in: in 1- 2 weeks to check labs digoxin, BMP and Mg Test Results: Test results from this visit will be discussed in further detail at your follow-up appointment, if applicable. Please Follow Up With: Gloria Chatman DPM When: in 1-2 weeks for left foot ulcer/cellulitis 03/21/18 1109 <Electronically signed by Orestes Farr MD> Date Orestes Farr MD CC: Fany Hobson DO; Gloria Compa DPM BEDSIDE GLUCOSE Collected: 03/21/2018 Status: F Source: [place] 6:47 AM [facility]POS[facility] TYPE CODE TESTS RESULT OUT OF REFERENCE UNITS RANGE LAB L501.080 70-110 mg/dL High BEDSIDE GLU 119 Result Comment: MANAGEMENT OF PATIENT CARE PER NURSING PROTOCOL Performed By: #### L501.080 #### [facility] Point of Care [address] [place], [place] [address] CBC W/DIFF, AUTOMATED Collected: 03/21/2018 Status: F Source: [place] 4:50 AM [facility] REPOS[facility] TYPE CODE TESTS RESULT OUT OF RANGE REFERENCE UNITS LAB L100.1000 4.4-11.0 K/mm3 Normal WBC 9.9 LAB L100.1200 4.6-6.2 M/mm3 Low RBC 3.89 LAB L100.1300 13.0-16.5 g/dl Low HGB 10.2 LAB L100.1400 40-54 % Low HCT 33.5 LAB L100.1500 80-94 fL Normal MCV 86.1 LAB L100.1600 27.0-32.0 pg Low MCH 26.2 LAB L100.1700 32-36 g/gl Low MCHC 30.4 LAB L100.1810 11.6-14.6 % High RDW CV 19.0 LAB L100.1820 35.1-43.9 fl High RDW SD 60.0 LAB L100.1900 150-450 K/mm3 Normal PLT 215 LAB L100.2000 6.2-12.0 fl Normal MPV 9.6 LAB L100.2100 47-70 % High NEUT% 74.7 LAB L100.2200 19-41 % Low LY% 11.2 LAB L100.2300 0-10 % Normal MONO% 8.3 LAB L100.2400 0-5 % High EO% 5.2 LAB L100.2500 0-1 % Normal BASO% 0.4 LAB L100.2550 0.0-0.9 % Normal IM GRAN % 0.200 Result Comment: IG% - Immature Granulocytes (promyelocytes, myelocytes and metamyelocytes) > 1% indicates that a LEFT SHIFT is Present. LAB L100.2620 2.0-7.7 X10 3/uL Normal Absolute Neut 7.4 LAB L100.2720 0.83-4.51 X10 3/ul Normal Absolute Lymph 1.11 Performed By: #### L100.0100 #### [facility] [address] [place], [address] BASIC METABOLIC Collected: 03/21/2018 Status: F Source: [place] PROFILE (BMP) 4:50 AM [facility] REPOS[facility] TYPE CODE TESTS RESULT OUT OF RANGE REFERENCE UNITS LAB L501.0100 74-106 mg/dL High GLU 127 Result Comment: Fasting Glucose result greater than or equal to 126 mg/dL suggests DIABETES MELLITUS per A.D.A. criteria. Please note revised GLUCOSE reference range effective 2017. LAB L501.1000 7-18 mg/dL Normal BUN 10 LAB L501.1100 0.70-1.30 mg/dL Normal CREAT,SERUM 0.95 Result Comment: The validity of the calculated GFR AND GFRAA in patients over 70 years has not been determined. Clinical correlation is essential. LAB L501.1110 >60 mL/min Normal EST GFR 83 Result Comment: Non- GFR Calc LAB L501.1115 >60 mL/min Normal EST GFR - AA 100 Result Comment: GFR Calc LAB L501.1255 ml/min Normal Estimated CRCL 72.57 LAB L501.1300 10-20 RATIO Normal BUN/CRE 10.5 LAB L501.2200 8.5-10 mg/dL Low .1 CA 8.3 LAB L501.5300 136-14 mmol/L Normal 5 NA 143 LAB L501.5600 3.5-5. mmol/L Normal 1 K 4.0 LAB L501.5900 98-107 mmol/L Normal CL 106 LAB L501.6100 21.0-3 mmol/L Normal 2.0 CO2 31.0 LAB L501.6200 5-15 Normal GAP 6 Performed By: #### L500.2500, L501.5200 #### [facility] [address] [place], [address] MAGNESIUM Collected: 03/21/2018 Status: F Source: [place] 4:50 AM [facility] REPOS[facility] TYPE CODE TESTS RESULT OUT OF RANGE REFERENCE UNITS LAB L501.5200 1.6-2.6 mg/dL Normal MG 2.1 Performed By: #### L500.2500, L501.5200 #### [facility] [address] [place], [address] VANCOMYCIN, TROUGH Collected: 03/21/2018 Status: F Source: [place] LEVEL 4:50 AM [facility] REPOSITORY Order Comment: Time Medication is to be Given? 0500 TYPE CODE TESTS RESULT OUT OF RANGE REFERENCE UNITS LAB L501.8820 5.0-15.0 ug/mL Normal VANCO, TROUGH 13.6 Result Comment: VANCOMYCIN STANDARED DRUG THERAPY TROUGH LEVEL: 5.0 - 15.0 mg/L VANCOMYCIN HIGH INTENSITY THERAPY TROUGH LEVEL: 15.0 - 20.0 mg/L High Intensity therapy recommended for serious life threatening infections include: - Meningitis -Endocarditis -Pneumonia (Ventilator/Healtcare Associated) -Sepsis PLEASE CONTACT PHARMACY SERVICES (#[id number]) FOR INTERPRETATION OF RESULTS. Performed By: #### L501.8820 #### [facility] [address] [place], [address] HEMOGLOBIN A1C Collected: 03/21/2018 Status: F Source: [place] 4:50 AM [facility] REPOS[facility] TYPE CODE TESTS RESULT OUT OF RANGE REFERENCE UNITS LAB L501.9985 4.2-6.3 % Normal HGB A1C 6.1 Performed By: #### L501.9985 #### [facility] [address] [place], [address] BEDSIDE GLUCOSE Collected: 03/20/2018 Status: F Source: [place] 9:40 PM [facility] REPOS[facility] TYPE CODE TESTS RESULT OUT OF REFERENCE UNITS RANGE LAB L501.080 70-110 mg/dL High BEDSIDE GLU 126 Result Comment: MANAGEMENT OF PATIENT CARE PER NURSING PROTOCOL Performed By: #### L501.080 #### [facility] Point of Care [address] [place] [address] LOWER EXT ARTERIAL Observed: 03/20/2018 Status: F Source: [place] STUDY 6:41 PM [facility] REPOSITORY [facility] Cardiovascular Services [address] [place] [address] 03/20/181837 MR#: [id number] Acct: [id number] Name: JV UDRHAM Jr. Rep #: [id number] : 1945 72 From: Jv Carrera MD Attending Dr: Orestes Farr MD Status: ADM HERO Ordering Dr: Date: 03/20/18 Location: [facility]2 Sex: M C Admitted: 03/19/18 Arterial Study - Arterial Study Arterial Study: Bilateral lower extremity noninvasive arterial exam at rest Patient with a left great toe ulcer Right lower extremity The right PT and DP ankle-brachial index at rest are 1.03 and 1.06 respectively with triphasic right posterior tibial and dorsalis pedis Doppler waveforms. Volume pulse recordings demonstrate normal amplification at the calf. Ankle waveforms are moderately depressed. Left lower extremity The left PT and DP ankle-brachial index at rest 1.05 and 0.97 respectively. The left posterior tibial Doppler waveform is triphasic while the dorsalis pedis is biphasic. The volume pulse recordings do not demonstrate amplification the calf. The ankle waveforms are well maintained. Digital waveforms are well maintained. Impression Normal right lower extremity ankle-brachial indices and waveforms at rest Normal left lower extremity PT ankle-brachial index and waveform at rest. Mildly diminished left DP index at 0.97 with a biphasic waveform consistent with mild disease. Findings would not suggest critical ischemia. Jv Carrera M.D., F.A.C.S. 03/20/181840 <Electronically signed by Jv Carrera MD> Date Jv Carrera MD CC: Fany Hobson DO; Titi Moore DO; Orestes Farr MD Date Dictated: 03/20/181837 Date Transcribed: 03/20/181837 Member Of [employer] Legislative [employer]: RDC Signed BEDSIDE GLUCOSE Collected: 03/20/2018 Status: F Source: [place] 4:53 PM [facility] REPOS[facility] TYPE CODE TESTS RESULT OUT OF RANGE REFERENCE UNITS LAB L501.080 70-110 mg/dL Normal BEDSIDE GLU 103 Result Comment: MANAGEMENT OF PATIENT CARE PER NURSING PROTOCOL Performed By: #### L501.080 #### [facility] Point [facility] [address] [facility] [place] [address] BEDSIDE GLUCOSE Collected: 03/20/2018 Status: F Source: [place] 11:35 AM [facility] REPOSIT[facility] TYPE CODE TESTS RESULT OUT OF REFERENCE UNITS RANGE LAB L501.080 70-110 mg/dL High BEDSIDE GLU 141 Result Comment: MANAGEMENT OF PATIENT CARE PER NURSING PROTOCOL Performed By: #### L501.080 #### [facility] Point of Care [address] [facility] [place] [address] CONSULTATION Observed: 03/20/2018 Status: F Source: [place] 6:58 AM [facility] REPOSITORY [facility] Medical Records Department [address] [place] [address] Consultation 03/19/181927 MR#: [id number] Acct: [id number] Name: MARVAJV Jr. Rep #: [id number] : 1945 72 From: Gloria Chatman DPM PCP: Fany Hobson DO Status: ADM HERO Y Location: [place] [address] Problem List (1) Left leg cellulitis Status: Chronic (2) Cellulitis Status: Chronic (3) Neuropathy Status: Acute (4) Non-pressure chronic ulcer of other part of left foot with fat layer exposed Status: Acute Reason for Consult Date of Consultation: 03/19/18 Reason for Consultation: infection left foot and leg History of Present Illness: The patient is a 72 year old M seen for ulcer of the left great toe with intermittent presentation of a couple of months. He has been treated at several facilities. [facility] with worsening redness, swelling and warmth and generalized fatigue. The redness began two days ago and has progressed. He denies new trauma. Past Medical History Past Medical History (Chronic Problems): Chronic Problems (Last Reviewed 03/19/18 @ 15:11 by Titi Moore DO) Left leg cellulitis (Chronic) Cellulitis (Chronic) Chronic atrial fibrillation (Chronic) angiolasty and stenting to BLE iliac arteries (Chronic 08/04/12) History of left heart catheterization (Chronic 12/04/16) Widely patent HERRERA and SVG grafts per [facility] 05/07/[address] Germain [facility]; [facility] 05/16/[address] Naylor @ [facility] History of coronary artery stent placement (Chronic 12/23/06) DQI-JJK-PJGW anastomosis-LAD w/ Taxus 2.75 x 8 mm and POBA- PDA 12/23/2006 History of cardioversion (Chronic 12/2016) Iron deficiency anemia due to chronic blood loss (Chronic) Gastric AVMs, September 2017 Cancer of upper lobe of left lung (Chronic) Secondary pulmonary arterial hypertension (Chronic) Atherosclerosis of coronary artery of alturas heart without angina pectoris (Chronic) CABG x 2 HERRERA-LAD, SVG-OM 02/14/2006 MIM-YNB-TLBC anastomosis-LAD w/ Taxus 2.75 x 8 mm and POBA- PDA 12/23/2006 H/O coronary artery bypass surgery (Chronic 02/14/06) CABG x 2 HERRERA-LAD, SVG-OM 02/14/[address] Fei Castillo, [facility] 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 (Chronic) Medical History: Medical History (Last Reviewed 03/19/18 @ 15:11 by Titi Moore DO) GI bleed (Acute) K92.2 tsferred to [facility], transfused with 2 units PRBC's. Chronic atrial fibrillation (Chronic) I48.2 port placement (Acute) Secondary pulmonary arterial hypertension (Chronic) I27.21 Atherosclerosis of coronary artery of alturas heart without angina pectoris (Chronic) I25.10 CABG x 2 HERRERA-LAD, SVG-OM 02/14/2006 YBO-JSU-SUKK anastomosis-LAD w/ Taxus 2.75 x 8 mm and POBA- PDA 12/23/2006 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 (Chronic) C34.12 Chemotherapy induced neutropenia (Acute) D70.1, T45.1X5A Anemia (Acute) D64.9 COPD (chronic obstructive pulmonary disease) (Acute) J44.9 Dyspnea (Acute) R06.00 Diabetes (Acute) E11.9 Neuropathy (Acute) G62.9 Arthritis (Acute) M19.90 Obesity (Acute) E66.9 Alcohol dependence (Acute) F10.20 GERD (gastroesophageal reflux disease) (Acute) K21.9 DJD (degenerative joint disease) (Acute) M19.90 Vascular disease (Acute) I99.9 Renal disease (Acute) N28.9 Macular degeneration (Acute) H35.30 Arrhythmia (Acute) I49.9 Migraine (Acute) G43.909 Memory loss (Acute) R41.3 Hypotestosteronism (Acute) E34.9 Essential tremor (Acute) G25.0 Parkinsons (Acute) G20 Dementia (Acute) F03.90 HEBER (obstructive sleep apnea) (Acute) G47.33 Benign essential hypertension (Acute) I10 Hammertoes of both feet (Acute) M20.41, M20.42 Allergies No Known Allergies Allergy (Verified 03/02/18 15:21) Home Medications: Ambulatory Orders Medication Instructions Recorded Surgical History: Surgical History (Last Reviewed 03/19/18 @ 15:11 by Titi Moore DO) angiolasty and stenting to BLE iliac arteries (Chronic) Onset Date: 08/04/12 History of left heart catheterization (Chronic) Onset Date: 12/04/16 Z98.890 Widely patent HERRERA and SVG grafts per [facility] 05/07/[address] Germain [facility]; [facility] 05/16/[address] Naylor @ [facility] History of coronary artery stent placement (Chronic) Onset Date: 12/23/06 Z95.5 MWP-BKB-JQOF anastomosis-LAD w/ Taxus 2.75 x 8 mm and POBA- PDA 12/23/2006 Left VATS procedure with wedge resection KATIE (Acute) History of cardioversion (Chronic) Onset Date: 12/2016 Z98.890 H/O coronary artery bypass surgery (Chronic) Onset Date: 02/14/06 Z95.1 CABG x 2 HERRERA-LAD, SVG-OM 02/14/[address] Fei Castillo, [facility] S/P CABG x 2 (Acute) Z95.1 Psychiatric History: No pertinent psych hx Lives: Spouse/ Significant Other Smoking Status: Former smoker Alcohol: Occasional - Drinks 2 small glasses of wine per day Drugs: None - *Family History Maternal Family History: Family History (Last Reviewed 03/19/18 @ 15:12 by Titi Moore DO) Sister Alcoholism Cancer Mother Arthritis Father Arthritis Brother Cancer Review of Systems Constitutional: Reports: Malaise, Weakness. Denies: Chills, Fever Cardiovascular: Denies: Chest Pain, Claudication Gastrointestinal: Denies: Nausea, Vomiting Musculoskeletal: Denies: Foot Pain, Leg Pain Skin: Reports: Skin Changes, Wounds Neurological: Reports: Balance problems, Incoordination, Numbness, Tingling Patient Problems: Active and Suspected Problems (Last Reviewed 03/19/18 @ 15:11 by Titi Moore DO) Non-pressure chronic ulcer of other part of left foot with fat layer exposed (Acute) - Physical Exam General: Alert, Oriented x3, Cooperative HEENT: Atraumatic Extremities: Capillary Refill Less than 3 Seconds, No Calf Tenderness - negative gisela and weinstein sign bilateral, Diminished Peripheral Pulses, Edema - left lower extremity, - - indurated left leg and thigh with streaking noted Skin: Ulcer/ Wound - plantar medial hallux without probe to bone. There is moist callous and intense erythema to the entire aspect. no purulence or necrosis on expression. Musculoskeletal: - - hallux malleolus position noted pain to palpate left hallux Neurological: - - lack of epicritic sensation via light touch consistent with neuropathy status Psych/Mental Status: Normal Affect, Appropriate, Flat Affect Vital Signs Temp Pulse Resp BP Pulse Ox 98.5 F 86 18 153/55 H 98 03/19/18 14:52 03/19/18 14:52 03/19/18 14:52 03/19/18 14:52 03/19/18 14:52 Oxygen Delivery Method Room Air Weight: 123.196 kg Body Mass Index (BMI) 38.9 Intake and Output for Last 24 Hours Intake Total 150 / 150 Balance 150 / 150 Laboratory Tests Past 24 Hrs WBC POC Glucose POC Glucose 118 H Assessment/Plan All Active Problems (Last Reviewed 03/19/18 @ 15:11 by Titi Moore DO) Non-pressure chronic ulcer of other part of left foot with fat layer exposed (Acute) Educational circumstance (Acute) GI bleed (Acute) Left VATS procedure with wedge resection KATIE (Acute) port placement (Acute) Educational circumstance (Acute) Antineoplastic chemotherapy induced anemia (Acute) Constipation (Acute) Chemotherapy induced neutropenia (Acute) Anemia (Acute) [...] feet (Acute) S/P CABG x 2 (Acute) infected left hallux with chronic ulcer (moderate) lymphangitis diabetes with neuropathy other comorbidities I saw this patient [facility]. There is concern for rapid onset moderate level infection; the erythema location was marked with a pen. I recommended admission/observation for IV antibiotics and further work up. Xray and MRI final reports are pending. I reviewed the imaging and do not appreciate acute osseous destruction, osteomyelitis or abscess. Wound culture was obtained after excisional subcutaneous debridement (15 blade in clinic to excise non viable, fibrous, devitalized subcutaneous, biofilm tissue predebridement 0.2 x 0.2 x 0.2 cm and post debridement 0.9 x 0.5 x0.2 cm) . He tolerated the debridement well. The culture results are pending. WBC is elevated at 12.9, esr 31; will monitor. Pending imaging results and response to IV broad spectrum antibiotics, further antibiotics versus procedure intervention will be considered. He was advised to keep pressure off of this site. Dr. Kruger will re evaluate this patient tomorrow to check on progress. Please do not hesitate to call if there are any additional questions or concerns. Gloria Chatman DPM, [facility] [phone] 03/20/18 0658 <Electronically signed by Gloria Chatman DPM> Date Gloria Chatman DPM Cosigner Signature (if applicable): Date CC: Fany Hobson DO; Titi Moore DO; Gloria Chatman DPM Signed BEDSIDE GLUCOSE Collected: 03/20/2018 Status: F Source: IVIS 6:40 AM [facility] REPOS[facility] TYPE CODE TESTS RESULT OUT OF REFERENCE UNITS RANGE LAB L501.080 70-110 mg/dL High BEDSIDE GLU 124 Result Comment: MANAGEMENT OF PATIENT CARE PER NURSING PROTOCOL Performed By: #### L501.080 #### [facility] Point of Care [address] [place], [place] [address] BASIC METABOLIC Collected: 03/20/2018 Status: F Source: [place]IS PROFILE (BMP) 5:50 AM [facility] REPOSIT[facility] Order Comment: SPECIMEN OBTAINED FROM LINE DRAW TYPE CODE TESTS RESULT OUT OF RANGE REFERENCE UNITS LAB L501.0100 74-106 mg/dL High GLU 125 Result Comment: Fasting Glucose result from 100 to 125 mg/dL suggests IMPAIRED HOMEOSTASIS per A.D.A. criteria. Please note revised GLUCOSE reference range effective 2017. LAB L501.1000 7-18 mg/dL Normal BUN 11 LAB L501.1100 0.70-1.30 mg/dL Normal CREAT,SERUM 0.99 Result Comment: The validity of the calculated GFR AND GFRAA in patients over 70 years has not been determined. Clinical correlation is essential. LAB L501.1110 >60 mL/min Normal EST GFR 79 Result Comment: Non- GFR Calc LAB L501.1115 >60 mL/min Normal EST GFR - AA 96 Result Comment: GFR Calc LAB L501.1255 ml/min Normal Estimated CRCL 69.64 LAB L501.1300 10-20 RATIO Normal BUN/CRE 11.1 LAB L501.2200 8.5-10 mg/dL Low .1 CA 8.1 LAB L501.5300 136-14 mmol/L Normal 5 NA 143 LAB L501.5600 3.5-5. mmol/L Normal 1 K 3.7 LAB L501.5900 98-107 mmol/L Normal CL 107 LAB L501.6100 21.0-3 mmol/L Normal 2.0 CO2 31.0 LAB L501.6200 5-15 Normal GAP 5 Performed By: #### L500.2500 #### [facility] [address] [facility] [place], [address] BEDSIDE GLUCOSE Collected: 03/20/2018 Status: F Source: [place] 2:12 AM [facility] TYPE CODE TESTS RESULT OUT OF REFERENCE UNITS RANGE LAB L501.080 70-110 mg/dL High BEDSIDE GLU 118 Result Comment: MANAGEMENT OF PATIENT CARE PER NURSING PROTOCOL Performed By: #### L501.080 #### [facility] Point of Care [address] [facility] [place] [address] BEDSIDE GLUCOSE Collected: 03/19/2018 Status: F Source: [place] 10:05 PM [facility] TYPE CODE TESTS RESULT OUT OF REFERENCE UNITS RANGE LAB L501.080 70-110 mg/dL High BEDSIDE GLU 122 Result Comment: MANAGEMENT OF PATIENT CARE PER NURSING PROTOCOL Performed By: #### L501.080 #### [facility] Point of Care [address] [place] [address] FOOT MIN 3 VIEWS Observed: 03/19/2018 Status: F Source: [place] 7:26 PM [facility] REPOSITORY [facility] Imaging Services [address] [place] [address] Foot min 3 Views MR#: [id number] Acct: [id number] Name: JV DURHAM Jr. Rep #: [id number] : 1945 M 72 From: Brynn Tian MD PCP: Fany Hobson DO Status: ADM HERO Study: Foot min 3 Views Date of Exam: 03/19/18 Exam# [id number] Ordering Dr: Glorai Chatman DPM STUDY: X-RAY - LEFT FOOT CLINICAL: Male, 72 years old. Left first digit infection, redness and swelling TECHNIQUE: 3 view(s) of the foot. COMPARISON: None. FINDINGS: Normal talus, calcaneus, and tarsal bones. Normal visualized subtalar, talonavicular, calcaneocuboid, tarsal and tarsometatarsal articulations. Normal metatarsi. There is degenerative arthrosis of the metatarsophalangeal joint of the hallux with a hallux valgus deformity. Normal tibial and fibular sesamoid bones. There is degenerative arthrosis of the interphalangeal joint of the great toe. Normal phalanges of the great toe. Normal second through fifth metatarsophalangeal joints. Normal interphalangeal joints and phalanges of the lesser toes. Soft tissue prominence along the tibial first into phalangeal joint level.. RAD/Foot min 3 Views IMPRESSION: Hallux valgus deformity with degenerative changes of the first interphalangeal joint with adjacent soft tissue swelling. No radiographic evidence of osteomyelitis or osseous destruction. Electronically Signed: Brynn Tian MD at 2:31 EDT , Service support , CC: Fany Chatman DPM Member Of [employer] Legislative [employer]: Signed CBC W/DIFF, AUTOMATED Collected: 03/19/2018 Status: F Source: [place] 4:38 PM [facility] TYPE CODE TESTS RESULT OUT OF RANGE REFERENCE UNITS LAB L100.1000 4.4-11.0 K/mm3 High WBC 12.9 LAB L100.1200 4.6-6.2 M/mm3 Low RBC 4.15 LAB L100.1300 13.0-16.5 g/dl Low HGB 10.9 LAB L100.1400 40-54 % Low HCT 35.5 LAB L100.1500 80-94 fL Normal MCV 85.5 LAB L100.1600 27.0-32.0 pg Low MCH 26.3 LAB L100.1700 32-36 g/gl Low MCHC 30.7 LAB L100.1810 11.6-14.6 % High RDW CV 18.7 LAB L100.1820 35.1-43.9 fl High RDW SD 57.6 LAB L100.1900 150-450 K/mm3 Normal PLT 248 LAB L100.2000 6.2-12.0 fl Normal MPV 9.9 LAB L100.2100 47-70 % High NEUT% 79.4 LAB L100.2200 19-41 % Low LY% 9.6 LAB L100.2300 0-10 % Normal MONO% 9.4 LAB L100.2400 0-5 % Normal EO% 1.2 LAB L100.2500 0-1 % Normal BASO% 0.2 LAB L100.2550 0.0-0.9 % Normal IM GRAN % 0.200 Result Comment: IG% - Immature Granulocytes (promyelocytes, myelocytes and metamyelocytes) > 1% indicates that a LEFT SHIFT is Present. LAB L100.2620 2.0-7.7 X10 3/uL High Absolute Neut 10.2 LAB L100.2720 0.83-4.51 X10 3/ul Normal Absolute Lymph 1.24 Performed By: #### L100.0100, L101.9900 #### [facility] [address] [place], [place], [address] ERYTHROCYTE SED RATE Collected: 03/19/2018 Status: F Source: [place] 4:38 PM [facility]POS[facility] TYPE CODE TESTS RESULT OUT OF RANGE REFERENCE UNITS LAB L102.0000 0-20 mm/hr High SED RATE 31 Performed By: #### L100.0100, L101.9900 #### [facility] [address] [place], [place], [address] BASIC METABOLIC Collected: 03/19/2018 Status: F Source: [place] PROFILE (BMP) 4:38 PM [facility]POS[facility] TYPE CODE TESTS RESULT OUT OF RANGE REFERENCE UNITS LAB L501.0100 74-106 mg/dL High GLU 121 Result Comment: Fasting Glucose result from 100 to 125 mg/dL suggests IMPAIRED HOMEOSTASIS per A.D.A. criteria. Please note revised GLUCOSE reference range effective 2017. LAB L501.1000 7-18 mg/dL Normal BUN 12 LAB L501.1100 0.70-1.30 mg/dL Normal CREAT,SERUM 1.00 Result Comment: The validity of the calculated GFR AND GFRAA in patients over 70 years has not been determined. Clinical correlation is essential. LAB L501.1110 >60 mL/min Normal EST GFR 78 Result Comment: Non- GFR Calc LAB L501.1115 >60 mL/min Normal EST GFR - AA 94 Result Comment: GFR Calc LAB L501.1255 ml/min Normal Estimated CRCL 68.94 LAB L501.1300 10-20 RATIO Normal BUN/CRE 12.0 LAB L501.2200 8.5-10 mg/dL Low .1 CA 8.2 LAB L501.5300 136-14 mmol/L Normal 5 NA 143 LAB L501.5600 3.5-5. mmol/L Normal 1 K 3.5 LAB L501.5900 98-107 mmol/L Normal CL 106 LAB L501.6100 21.0-3 mmol/L Normal 2.0 CO2 32.0 LAB L501.6200 5-15 Normal GAP 5 Performed By: #### L500.2500 #### [facility] [address] [place], [address] Observed: 03/19/2018 Status: F Source: [place] CULTURE, DEEP WOUND 4:20 PM [facility] REPOS[facility]ORY Comments: LEFT TOE Gram Stain Gram Stain Rare Gram positive cocci Rare White Blood Cells No Epithelial cells Wound Culture #2 There are no CLSI standards for interpretation of this Drug/Organism combination. Copy of report sent to Infection Control Printer [id number] 03/23/18 0746 DCANNON. ORGANISM 1: Meth. resistant Staph. aureus Amount Growth Rare ORGANISM 2: Corynebacterium urealyticum Amount Growth Rare Meth. resistant Staph. aureus: REACTION Benzylpenicillin NF >=0.5 R Cefoxitin *NF + Clindamycin $$ >=8 R Inducable Clindamycin Resistan - Erythromycin $ >=8 R Gentamicin $ <=0.5 S Levofloxacin $ >=8 R Linezolid $$$$ 2 S Oxacillin NF >=4 R Tigecycline $$$$ <=0.12 S Rifampin $$ <=0.5 S Tetracycline NF >=16 R Trimethoprim/Sulfametho $ <=10 S Vancomycin $ <=0.5 S (NF) indicates non-formulary drug at [facility]. Approval by Infectious Disease Specialist required before non-formulary drugs may be ordered and/or dispensed. * CLSI guidelines does not recommend testing of cephalosporins. This interpretation is deduced from Beta-lactam/penicillin results. Cult, Anaerobic Studies have confirmed that Anaerobic Gram Positive Cocci are routinely susceptible to: Penicillin/Ampicillin, Ampicillin/Sulbactam, Piperacillin/Tazobactam, Cefoxatin, Ertapenem, Imipenem, Meropenem and Metronidazole and vary in resistance to: Clindamycin and Moxifloxacin. ORGANISM 1: Anaerobic cocci Performed By: #### M100.1500 #### [facility] [place], [address] Observed: 03/19/2018 Status: F Source: [place] MRSA/SAID SCREEN 4:20 PM [facility] REPOS[facility] Copy of report sent to Infection Control Printer [id number] 03/21/18 1330 DCANNON. Results called on 03/21/18 by DCANNON to /LORIN MS2 . MRSA/SAID SCRN S. AUREUS S. aureus Positive MRSA MRSA Positive Performed By: #### M100.651 #### [facility] [address] [place] [address], [address] BEDSIDE GLUCOSE Collected: 03/19/2018 Status: F Source: [place] 4:18 PM [facility]POS[facility] TYPE CODE TESTS RESULT OUT OF REFERENCE UNITS RANGE LAB L501.080 70-110 mg/dL High BEDSIDE GLU 118 Result Comment: MANAGEMENT OF PATIENT CARE PER NURSING PROTOCOL Performed By: #### L501.080 #### [facility] Point of Care [address] [place] [address] HISTORY AND PHYSICAL Observed: 03/19/2018 Status: F Source: [place] EXAM 3:17 PM [facility] REPOSITORY [facility] Medical Records Department [address] [place] [address] History and Physical 03/19/18 1510 MR#: [id number] Acct: [id number] Name: JV DURHAM Jr. Rep #: [id number] : 1945 72 From: Titi Moore DO PCP: Fany Hobson DO Status: ADM HERO Y Location: [facility] SV111-4 Problem List (1) Left leg cellulitis Status: Acute History of Present Illness Date of Admission: 03/19/18 Chief Complaint: Left leg redness The patient is a 72 year old M who has had a chronic ulcer on his left great toe for several months. He has been seeing podiatry and wound care for this. Today, patient noted redness extending up from that ulcer up his medial leg and thigh. Patient saw Dr. Chatman, of podiatry, and was concerned for the rapid onset of cellulitis in a patient with known ulcer and chronic medical conditions and advised patient be admitted started on IV antibiotics and have an MRI of his foot. Patient notes no changes in his ulcer and has been otherwise stable. Denies any recent trauma to it as well. Denies any other somatic complaints other than just the redness. States that otherwise feels well and he has no fever or chills. This is similar to prior episodes of cellulitis but at that time he stated that he waited too long and got very ill by the time he presented to the hospital. [] Past Medical History Past Medical History (Chronic Problems): Chronic Problems (Last Reviewed 03/02/18 @ 15:18 by Maggie Astudillo) Chronic atrial fibrillation (Chronic) angiolasty and stenting to BLE iliac arteries (Chronic 08/04/12) History of left heart catheterization (Chronic 12/04/16) Widely patent HERRERA and SVG grafts per [facility] 05/07/[address] Germain [facility]; [facility] 05/16/[address] Naylor @ [facility] History of coronary artery stent placement (Chronic 12/23/06) SBR-KJM-CEVR anastomosis-LAD w/ Taxus 2.75 x 8 mm and POBA- PDA 12/23/2006 History of cardioversion (Chronic 12/2016) Iron deficiency anemia due to chronic blood loss (Chronic) Gastric AVMs, September 2017 Cancer of upper lobe of left lung (Chronic) Secondary pulmonary arterial hypertension (Chronic) Atherosclerosis of coronary artery of [place] heart without angina pectoris (Chronic) CABG x 2 HERRERA-LAD, SVG-OM 02/14/2006 PNZ-IOC-ZBQF anastomosis-LAD w/ Taxus 2.75 x 8 mm and POBA- PDA 12/23/2006 H/O coronary artery bypass surgery (Chronic 02/14/06) CABG x 2 HERRERA-LAD, SVG-OM 02/14/[address] Fei Castillo, [facility] 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 (Chronic) Medical History: Medical History (Last Reviewed 03/19/18 @ 15:11 by Titi Moore DO) GI bleed (Acute) K92.2 tsferred to [facility], transfused with 2 units PRBC's. Chronic atrial fibrillation (Chronic) I48.2 port placement (Acute) Secondary pulmonary arterial hypertension (Chronic) I27.21 Atherosclerosis of coronary artery of [place] heart without angina pectoris (Chronic) I25.10 CABG x 2 HERRERA-LAD, SVG-OM 02/14/2006 LDX-QDZ-FJFO anastomosis-LAD w/ Taxus 2.75 x 8 mm and POBA- PDA 12/23/2006 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 (Chronic) C34.12 Chemotherapy induced neutropenia (Acute) D70.1, T45.1X5A Anemia (Acute) D64.9 COPD (chronic obstructive pulmonary disease) (Acute) J44.9 Dyspnea (Acute) R06.00 Diabetes (Acute) E11.9 Neuropathy (Acute) G62.9 Arthritis (Acute) M19.90 Obesity (Acute) E66.9 Alcohol dependence (Acute) F10.20 GERD (gastroesophageal reflux disease) (Acute) K21.9 DJD (degenerative joint disease) (Acute) M19.90 Vascular disease (Acute) I99.9 Renal disease (Acute) N28.9 Macular degeneration (Acute) H35.30 Arrhythmia (Acute) I49.9 Migraine (Acute) G43.909 Memory loss (Acute) R41.3 Hypotestosteronism (Acute) E34.9 Essential tremor (Acute) G25.0 Parkinsons (Acute) G20 Dementia (Acute) F03.90 HEBER (obstructive sleep apnea) (Acute) G47.33 Benign essential hypertension (Acute) I10 Hammertoes of both feet (Acute) M20.41, M20.42 Allergies No Known Allergies Allergy (Verified 03/02/18 15:21) Home Medications: Ambulatory Orders Medication Instructions Recorded Surgical History: Surgical History (Last Reviewed 03/19/18 @ 15:11 by Titi Moore DO) angiolasty and stenting to BLE iliac arteries (Chronic) Onset Date: 08/04/12 History of left heart catheterization (Chronic) Onset Date: 12/04/16 Z98.890 Widely patent HERRERA and SVG grafts per [facility] 05/07/[address] Germain [facility]; [facility] 05/16/[address] Naylor @ [facility] History of coronary artery stent placement (Chronic) Onset Date: 12/23/06 Z95.5 CCX-UJT-RXPW anastomosis-LAD w/ Taxus 2.75 x 8 mm and POBA- PDA 12/23/2006 Left VATS procedure with wedge resection KATIE (Acute) History of cardioversion (Chronic) Onset Date: 12/2016 Z98.890 H/O coronary artery bypass surgery (Chronic) Onset Date: 02/14/06 Z95.1 CABG x 2 HERRERA-LAD, SVG-OM 02/14/[address] Fei Castillo, [facility] S/P CABG x 2 (Acute) Z95.1 Psychiatric History: No pertinent psych hx Lives: Spouse/ Significant Other Smoking Status: Former smoker Alcohol: Occasional - Drinks 2 small glasses of wine per day Drugs: None - *Family History Maternal Family History: Family History (Last Reviewed 03/19/18 @ 15:12 by Titi Moore DO) Sister Alcoholism Cancer Mother Arthritis Father Arthritis Brother Cancer Review of Systems Constitutional: Denies: Chills, Fever, Weight Change Eyes: Denies: Blurred vision, Double vision HEENT: Denies: Head Aches, Sinus Congestion, Sinus Drainage Cardiovascular: Denies: Chest Pain, Palpitations Respiratory: Denies: Cough, Shortness of breath at rest, Sputum production Gastrointestinal: Denies: Abdominal Pain, Nausea, Vomiting Genitourinary: Denies: Dysuria Musculoskeletal: Denies: Joint Pain, Joint Tenderness Skin: Reports: Wounds, - - Erythema left foot and leg Neurological: Reports: - - Lower extremity neuropathy. Denies: Balance problems Psychiatric: Denies: Anxiety, Depression Endocrine: Denies: Change in Body Habitus, Heat/ Cold Intolerance Hematologic/ Lymphatic: Denies: Easy Bruising, Easy Bleeding, Hx of blood clot Comment: All review of systems are negative except as mentioned in the history of present illness and the other review of systems. VTE Information - Inpt Only VTE Present on Admission: No VTE Pharm Prophylaxis ordered?: Yes Patient Problems: Active and Suspected Problems (Last Reviewed 03/02/18 @ 15:18 by Maggie Astudillo) Left leg cellulitis (Acute) - Physical Exam General: Alert, Cooperative, No apparent distress HEENT: Atraumatic, EOMI, Normocephalic, - - No scleral icterus Oral: Moist Mucosa, No Gingival or Mucosal Lesions/ Ulcerations Neck: No Nodes, Thyroid Normal Size and Texture Lungs: Clear to auscultation, Normal air movement, No rhonchi, No wheeze Cardiovascular: Regular rate, Regular Rhythm, Normal S1, Normal S2, No murmurs Abdomen: Bowel Sounds Present, Soft, Non Tender, Non-Distended, No Hepato-splenomegaly Extremities: No edema, No Calf Tenderness Skin: - - Ulcer on the medial left great toe. No purulence could be expressed. No fluctuance. Patient does have erythema extending up from the toe with lymphangitis up into his ankle he does have an area of macular erythema and then another area of lymphangitis extending up into his medial thigh. Musculoskeletal: No Tenderness to Palpation of Joints or Extremities, No Muscle Wasting Neurological: Neuro grossly intact, Sensory exam intact to light touch and pain Psych/Mental Status: Normal Affect, Appropriate Vital Signs Temp Pulse Resp BP Pulse Ox 36.9 C 86 18 153/55 H 98 03/19/18 14:52 03/19/18 14:52 03/19/18 14:52 03/19/18 14:52 03/19/18 14:52 Oxygen Delivery Method Room Air Weight: 123.196 kg Body Mass Index (BMI) 38.9 Assessment/Plan All Active Problems (Last Reviewed 03/02/18 @ 15:18 by Maggie Astudillo) Left leg cellulitis (Acute) Educational circumstance (Acute) Cellulitis (Acute) GI bleed (Acute) Left VATS procedure with wedge resection KATIE (Acute) port placement (Acute) Educational circumstance (Acute) Antineoplastic chemotherapy induced anemia (Acute) Constipation (Acute) Chemotherapy induced neutropenia (Acute) Anemia (Acute) [...] feet (Acute) S/P CABG x 2 (Acute) 1. Acute left lower extremity cellulitis * Nidus of infection is likely due to his left great toe ulcer * Given the rapid onset, I am concerned about staph * Will start the patient on vancomycin * Check an MRI of his foot * Check cultures of his foot * Based on MRI reports if there is an abscess or evidence of osteomyelitis then podiatry be consulted at that time. * The patient has no evidence of any abscess or osteomyelitis and patient has a great improvement on the fifth, then it is possible that the patient could be discharged to home with oral antibiotics. 2. Diabetes mellitus type 2 * Diet controlled at home * We will add a sliding scale insulin while he is here what fluctuations of his blood sugar with the underlying infection 3. Atrial fibrillation * Rate controlled * Continue with metoprolol and digoxin * Continue with Xarelto 4. Advanced care planning: Discussed CPR, intubation and PEG tube's. Patient wishes to be full code with intubation and PEG tube's at this time if needed. 5. DVT prophylaxis: Patient is anticoagulated. Code Visit OBSV E AND M: 99127 Initial observation care L3 03/19/18 1517 <Electronically signed by Titi Moore DO> Date Titi Moore DO Cosigner Signature: Date (if applicable) CC: Fany Hobson DO; Titi Moore DO; Gloria Chatman DPZion Signed LOWER EXT/NO JT/W/O Observed: 03/19/2018 Status: F Source: [place] 3:10 PM [facility] RE[facility] Imaging Services [address] [place] [address] Lower Ext/No Jt/w/o MR#: [id number] Acct: [id number] Name: JV DURHAM Jr. Rep #: [id number] : 1945 M 72 From: Carlos Wilson MD PCP: Fany Hobson DO Status: ADM HERO Study: Lower Ext/No Jt/w/o Date of Exam: 03/19/18 Exam# [id number] Ordering Dr: Titi Moore DO STUDY: MRI LEFT FOREFOOT WITHOUT CONTRAST REASON FOR EXAM: Male, 72 years old. Cellulitis of the great toe. TECHNIQUE: Standardized fat and water weighted pulse sequences were obtained in all 3 orthogonal planes. COMPARISON: None. FINDINGS: There is degenerative arthrosis of the metatarsophalangeal joint of the hallux. Normal tibial and fibular sesamoids, with normal sesamoids-first metatarsal articulations. There is degenerative arthrosis of the interphalangeal joint of the hallus. Normal proximal and distal phalanges of the great toe. There is soft tissue swelling of the great toe. Normal medial and lateral heads of the flexor hallucis brevis tendons. Normal flexor and extensor hallucis longus tendons. Normal second through fifth metatarsophalangeal (MTP) joints. Normal interphalangeal joints of the second through fifth toes. Normal proximal, middle and distal phalanges of the second through fifth toes. Normal first through fourth intermetatarsal spaces. Normal flexor and extensor tendons of the second through fifth toes. Normal visualized metatarsi. There is diffuse atrophy of the intrinsic muscles of the forefoot consistent with a peripheral neuropathy. There is no demonstrated soft tissue mass or fluid collection. MRI/Lower Ext/No Jt/w/o IMPRESSION: Swelling of the first toe. No MRI evidence of osteomyelitis. Electronically Signed: Carlos Wilson MD at 19:49 EDT , Service support , CC: Fany Hobson DO; Tiit Moore DO Member Of The Legislative Assembly: Signed MRSA WOUND DNA BY Collected: 03/19/2018 Status: F Source: [place] PCR 12:00 PM [facility] REPOS[facility] Order Comment: RESULTS CALLED TO ODIN 03/19/182015 Demi Lynn. REPORT READ BACK BY SAME. Specimen Source? LEFT FOOT ULCER TYPE CODE TESTS RESULT OUT OF REFERENCE UNITS RANGE LAB L8200.1100 Negative High MRSA POSITIVE RESULT LAB L8200.1150 Negative High SA RESULT POSITIVE Performed By: #### L8200.1075 #### [facility] [address] [place], [address] Observed: 03/19/2018 Status: F Source: [place] CULTURE, WOUND 12:00 PM [facility] REPOS[facility] Gram Stain Gram Stain 2+ Red Blood Cells Rare Gram positive cocci No White Blood Cells Wound Culture #2 Gram positive danielle suggestive of a diptheroid. There are no CLSI standards for interpretation of this Drug/Organism combination. RESULTS CALLED TO JESSICA/MS2 03/21/18 0817 Poppy Pate. Copy of report sent to Infection Control Printer [id number] 03/21/18817 ANDREA. ORGANISM 1: Meth. resistant Staph. aureus Amount Growth 1+ ORGANISM 2: Gram positive danielle Amount Growth Rare Meth. resistant Staph. aureus: REACTION Benzylpenicillin NF >=0.5 R Cefoxitin *NF + Clindamycin $$ >=8 R Inducable Clindamycin [place] - Erythromycin $ >=8 R Gentamicin $ <=0.5 S Levofloxacin $ >=8 R Linezolid $$$$ 4 S Oxacillin NF >=4 R Tigecycline $$$$ <=0.12 S Rifampin $$ <=0.5 S Tetracycline NF >=16 R Trimethoprim/Sulfametho $ <=10 S Vancomycin $ 1 S (NF) indicates non-formulary drug at [facility]. Approval by Infectious Disease Specialist required before non-formulary drugs may be ordered and/or dispensed. * CLSI guidelines does not recommend testing of cephalosporins. This interpretation is deduced from Beta-lactam/penicillin results. Performed By: #### M100.1400 #### [facility] [address] [place], [address] CARDIOLOGY VISIT Observed: 03/02/2018 Status: F Source: IVIS REPORT 3:38 PM [facility] [address] [place] [address] OFFICE VISIT Date of Service: 03/02/18 MR#: [id number] Acct: [id number] Name: JV DURHAM Jr. Rep #: [id number] : 1945 Provider: Michoacano Germain MD Age/Sex: 72/M Location: [facility] Status: Signed HPI HPI Chief Complaint: Routine f/u Details: HPI PCP: Dr. Anastasia Hobson This is 72-year-old male who presents for [...] RVSP of 60 mmHg., Moderate pulmonary hypertension. May 2013 patient had right common iliac stent placement and left common iliac stent placement at [facility]. Heart cath from April 2013 showed [...] with left upper lobe lung cancer around April 2017. Patient underwent lung resection surgery with wedge resection, followed by chemotherapy which she has completed. No x-ray therapy was performed. The patient was recently admitted in December 2017 for shortness of breath and underwent a dobutamine echocardiogram [...] anticoagulation therapy for his chronic atrial fibrillation. His heart rate at home runs in [...] Mass Index (BMI) 39.3 03/02/18 Blood Pressure 100/60 Intake Visit Reasons: 6 M FU Grip Boss Required: No Is patient in pain?: No Allergies No Known Allergies Allergy (Verified 03/02/18 15:21) Medications Fenofibrate [Tricor] 145 mg PO DAILY 05/06/13 [History Confirmed 02/25/18] Folic Acid 1 mg PO DAILY@1200 05/06/13 [History Confirmed 02/25/18] Tiotropium [place] [Spiriva 18 MCG] 1 puff INHALATION DAILY 05/06/13 [History Confirmed 02/25/18] Duloxetine HCl 60 mg PO QHS 12/04/16 [History Confirmed 02/25/18] Pramipexole Di-HCl [Mirapex] 0.5 mg PO TID 12/04/16 [History Confirmed 02/25/18] metoprolol tartrate 25 mg tablet 25 mg PO QDAY #30 tab 09/25/17 [Rx Confirmed 02/25/18] aspirin 81 mg tablet,delayed release 81 mg PO QDAY 10/06/17 [History Confirmed 02/25/18] cyanocobalamin (vit B-12) 1,000 mcg tablet 1,000 mcg PO DAILY@1200 10/20/17 [History Confirmed 02/25/18] docusate sodium 100 mg capsule 100 mg PO BID cap 10/20/17 [History Confirmed 02/25/18] gabapentin 600 mg tablet 1,200 mg PO QHS tab 10/20/17 [History Confirmed 02/25/18] Budesonide [Pulmicort] 0.25 mg IH TID 10/23/17 [History Confirmed 02/25/18] Formoterol Fumarate [Perforomist] 20 mcg INHALATION BID 12/22/17 [History Confirmed 02/25/18] Multivit-Min/Iron Fum/Folic AC [Defxq-Uoyeuhg-Llgjdoyp Tablet] 1 ea PO BID 12/22/17 [History Confirmed 02/25/18] Omeprazole 20 mg PO DAILY@1700 12/22/17 [History Confirmed 02/25/18] Sennosides/Docusate Sodium [Senna-Docusate Sodium Tablet] 2 tab PO QHS 12/22/17 [History Confirmed 02/25/18] Digoxin 0.25 mg PO DAILY 01/27/18 [History Confirmed 02/25/18] pravastatin 40 mg tablet 40 mg PO QHS #90 tab 02/02/18 [Rx Confirmed 02/25/18] potassium chloride ER 10 mEq tablet,extended release 20 meq PO DAILY #180 tab 02/18/18 [Rx Confirmed 02/25/18] furosemide 20 mg tablet 20 mg PO QODAY 02/25/18 [History Confirmed 02/25/18] furosemide 40 mg tablet 40 mg PO .COMPLEX tab 02/25/18 [History Confirmed 02/25/18] rivaroxaban 10 mg tablet 10 mg PO DAILY 02/25/18 [History Confirmed 02/25/18] losartan 25 mg tablet 25 mg PO DAILY 03/02/18 [History Confirmed 03/02/18] PFSH Medical History GI bleed (Acute) Chronic atrial fibrillation (Chronic) port placement (Acute) Secondary pulmonary arterial hypertension (Chronic) Atherosclerosis of coronary artery of [place] heart without angina pectoris (Chronic) Primary malignant [...] (Chronic 12/04/16) History of coronary artery stent placement (Chronic [...] use: always ROS Const Const: Positive for other (Was in [facility] in December for cellulitis); negative for fatigue, weakness, body ache, fever(s), headache(s), chills, frequent falls, night sweats, daytime sleepiness, difficulty sleeping, excessive sweating, weight gain, weight loss, increased appetite, poor appetite or anorexia Eyes Eyes: Negative for blind spots, loss of peripheral vision, transient loss of vision, blurry vision, change in vision, double vision, floaters, tunnel vision or other ENT ENT: Negative for headache(s), dizziness, hearing loss, tinnitus, Nosebleed/epistaxis, balance problems, post nasal drip, lip swelling, tongue swelling, bleeding gums, hoarseness, neck pain, dry mouth or other Cardio Chest Pain: No Palpitations: No Edema: None Muscle aches with walking: None Resp Respiratory: Negative for SOB with activity, SOB at rest, SOB orthopnea\SOB lying down, [...] for joint pain (Needs right knee replacement); negative for balance problems, muscle aches/ myalgia or muscle weakness Skin Skin: Negative redness, non-healing lesions, rash, unusual bruising, skin ulcer, wounds, jaundice or other Neuro Neuro: Positive for other (Uses walker for balance and joint pain in knee); negative for weakness, headache(s), frequent falls, blurry vision, double vision, dizziness, lightheadedness, near syncope, syncope, orthostatic symptoms, confusion, memory loss, restless legs, vertigo, seizures or lack of coordination [place] Hematologic/Lymphatic: Negative for easy bleeding, easy bruising, enlarged lymph nodes or other Endo Endo: Negative for fatigue, excessive sweating, cold intolerance, [...] Palpation: normal PMI Rate: regular rate Rhythm: irregularly [...] and he is on lifelong anticoagulation therapy. Despite his normal LV function he appears to be well controlled with digoxin and metoprolol combination. Recommend he continue Xarelto therapy going forward. Recent stress test in December 2017 was negative for inducible ischemia 2. Atherosclerosis of coronary artery of [place] heart without angina pectoris I25.10 CABG x 2 HERRERA-LAD, SVG-OM 02/14/2006 GRU-RWY-IBUG anastomosis-LAD w/ Taxus 2.75 x 8 mm and POBA- PDA 12/23/2006 Plan . 2. Coronary artery disease: No exertional anginal symptoms at this time. His most recent catheterization was in 2016 which showed severe three-vessel coronary disease, widely patent grafts and widely patent anastomotic stent from the HERRERA to the LAD. Recent stress test is negative for inducible ischemia. Continue baby aspirin. 3. HEBER (obstructive sleep apnea) G47.33 Plan 3. Obstructive sleep apnea: This is managed by Dr. Salazar. Continue BiPAP therapy as well as oxygen at night and with exertion. 4. Hyperlipidemia: His LDL and HDL cholesterol are fairly well-controlled. Continue Pravachol. 4. Return office in 6 months. This note was generated using a voice recognition system and there may be incorrect words, spelling or punctuation that were not noted when reviewing the office note prior to saving. Plan Detail Other Medications New: Discontinued: losartan-hydrochlorothiazide 100-25 mg Discontinued Reason: Order Chan25 mg PO DAILY ged Follow Up +6M (Jose) Coding Level of Care Code Off vis,est,level 3 Diagnoses Chronic atrial fibrillation I48.2 Atherosclerosis of coronary artery of [place] heart without angina pectoris I25.10 HEBER (obstructive sleep apnea) G47.33 Coding Level of Care Code Off vis,est,level 3 Diagnoses Chronic atrial fibrillation I48.2 Atherosclerosis of coronary artery of [place] heart without angina pectoris I25.10 HEBER (obstructive sleep apnea) G47.33 03/02/18 1538 <Electronically signed by Michoacano Germain MD> Date Michoacano Germain MD Cosigner Signature: Date (if applicable) CC: Fany Hobson DO ONCOLOGY VISIT REPORT Observed: 01/27/2018 Status: F Source: [place] 3:39 PM [facility] [address] [place] [address]. 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 Denies: Fever, Sweats, Appetite change, Chills Cardiovascular:: Reports: Dyspnea [...] Port okay. Negative for: JVD, bilateral Cardiac:: Normal [...] nodules are nonspecific and should be followed CT abdomen December 2017: IMPRESSION: Stable right adrenal nodule containing macroscopic fat and exhibiting benign features. No acute upper abdominal process is otherwise evident. Assessment and Plan 72-year-old gentleman ex-smoker with [...] evidence to suggest measurable active cancer. Pulmonary nodules nonspecific sub-centimeters will need follow-up Now on surveillance. Follow-up in 3 months and a CAT scan [...] mg IH TID 10/23/17 Primary Care Provider: Fany Hobson DO Referring Provider: Marybeth Millan MD 01/27/18 1539 <Electronically signed by Marybeth Millan MD> Date Marybeth Millan MD Cosigner Signature: Date (if applicable) CC: Fany Hobson DO CBC W/DIFF, AUTOMATED Collected: 01/13/2018 Status: F Source: [place] 1:55 PM [facility] Order Comment: Reason for Laboratory Test . TYPE CODE TESTS RESULT OUT OF RANGE REFERENCE UNITS LAB L100.1000 4.4-11.0 K/mm3 Normal WBC 9.3 LAB L100.1200 4.6-6.2 M/mm3 Low RBC 3.90 LAB L100.1300 13.0-16.5 g/dl Low HGB 10.4 LAB L100.1400 40-54 % Low HCT 34.1 LAB L100.1500 80-94 fL Normal MCV 87.4 LAB L100.1600 27.0-32.0 pg Low MCH 26.7 LAB L100.1700 32-36 g/gl Low MCHC 30.5 LAB L100.1810 11.6-14.6 % High RDW CV 16.1 LAB L100.1820 35.1-43.9 fl High RDW SD 51.8 LAB L100.1900 150-450 K/mm3 Normal PLT 259 LAB L100.2000 6.2-12.0 fl Normal MPV 9.8 LAB L100.2100 47-70 % High NEUT% 75.7 LAB L100.2200 19-41 % Low LY% 12.6 LAB L100.2300 0-10 % Normal MONO% 9.7 LAB L100.2400 0-5 % Normal EO% 1.6 LAB L100.2500 0-1 % Normal BASO% 0.3 LAB L100.2550 0.0-0.9 % Normal IM GRAN % 0.100 Result Comment: IG% - Immature Granulocytes (promyelocytes, myelocytes and metamyelocytes) > 1% indicates that a LEFT SHIFT is Present. LAB L100.2620 2.0-7.7 X10 3/uL Normal Absolute Neut 7.1 LAB L100.2720 0.83-4.51 X10 3/ul Normal Absolute Lymph 1.17 Performed By: #### L100.0100 #### [facility] [address] [place], [address] COMPREHENSIVE METABOLIC Collected: 01/13/2018 Status: F Source: [facility] 1:55 PM [facility] Order Comment: Reason for Laboratory Test . TYPE CODE TESTS RESULT OUT OF RANGE REFERENCE UNITS LAB L501.0100 74-106 mg/dL High GLU 135 Result Comment: Fasting Glucose result greater than or equal to 126 mg/dL suggests DIABETES MELLITUS per A.D.A. criteria. Please note revised GLUCOSE reference range effective 2017. LAB L501.1000 7-18 mg/dL Normal BUN 12 LAB L501.1100 0.70-1.30 mg/dL Normal CREAT,SERUM 1.06 Result Comment: The validity of the calculated GFR AND GFRAA in patients over 70 years has not been determined. Clinical correlation is essential. LAB L501.1110 >60 mL/min Normal EST GFR 73 Result Comment: Non- GFR Calc LAB L501.1115 >60 mL/min Normal EST GFR - AA 88 Result Comment: GFR Calc LAB L501.1300 10-20 RATIO Normal BUN/CRE 11.3 LAB L501.1500 6.4-8.2 g/dL T Normal PROT 6.4 LAB L501.1800 3.2-5.0 g/dL Low ALB 3.0 LAB L501.1950 2.2-4.2 g/dL Normal GLOB 3.4 LAB L501.2000 0.9-2.4 RATIO Normal A/G 0.9 LAB L501.2200 8.5-10.1 mg/dL Low CA 8.4 LAB L501.4100 15-37 U/L Normal AST 19 LAB L501.4305 45-117 U/L Normal ALK P 74 LAB L501.4405 16-61 U/L Low ALT 15 LAB L501.4600 0.20-1.00 mg/dL T Normal BILI 0.40 LAB L501.5300 136-145 mmol/L NA Normal 143 LAB L501.5600 3.5-5.1 mmol/L K Normal 3.9 LAB L501.5900 98-107 mmol/L CL Normal 105 LAB L501.6100 21.0-32.0 mmol/L Normal CO2 31.0 LAB L501.6200 5-15 Normal GAP 7 Performed By: #### L500.4050, L503.6030, L503.6550 #### [facility] [address] [facility] [place], [place], [id number] IRON+IRON BINDING Collected: 01/13/2018 Status: F Source: [place] CAPACITY 1:55 PM [facility] REPOS[facility] Order Comment: Reason for Laboratory Test . TYPE CODE TESTS RESULT OUT OF RANGE REFERENCE UNITS LAB L503.6075 250-450 ug/dL TIBC Normal 381 LAB L503.6150 65-175 ug/dL Low IRON 26 LAB L503.6250 15.0-55.0 % Low IRON SATURATION 6.8 Performed By: #### L500.4050, L503.6030, L503.6550 #### [facility] [address] [place], [place], [id number] FERRITIN Collected: 01/13/2018 Status: F Source: [place] 1:55 PM [facility] Order Comment: Reason for Laboratory Test . TYPE CODE TESTS RESULT OUT OF RANGE REFERENCE UNITS LAB L503.6550 26-388 ng/mL Normal FERRITIN 28 Performed By: #### L500.4050, L503.6030, L503.6550 #### [facility] [address] [facility] [place], [place], [id number] ABDOMEN WITH IV Observed: 01/13/2018 Status: F Source: [place] CONTRAST 1:26 PM [facility] REPOSIT[facility] Services [address] [place], [place] [address] [place] [address] Abdomen WITH IV Contrast MR#: [id number] Acct: [id number] Name: JV DURHAM Jr. Rep #: [id number] : 1945 M 72 From: Glen Stevenson MD PCP: Fany Hobson DO Status: REG CLI Study: Abdomen WITH IV Contrast Date of Exam: 01/13/18 Exam# [id number] Ordering Dr: Marybeth Millan MD STUDY: CT ABDOMEN WITH CONTRAST REASON FOR EXAM: Male, 72 years old. 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 RADIATION DOSAGE (If Supplied By Facility): CTDIvol = ( 24.64 ) mGy, DLP = ( 1987.55 ) mGycm TECHNIQUE: Transaxial images were obtained post I.V. administration of 100 ml of Isovue 300 contrast, and no oral contrast. Sagittal and coronal images were reconstructed. Individualized dose optimization techniques were used for this CT. COMPARISON: CTA chest 03/18/2017. CT chest 01/13/2018. FINDINGS: Abdominal body wall soft tissues: No acute process. Osseous structures: Mild lumbar spondylosis. Osteopenia. Mild scoliosis. No acute osseous process. Facet hypertrophy contributes to mild foraminal stenosis at L4-L5 and L5-S1. Hepatobiliary: Normal. Pancreas: Mild atrophy. Spleen: Normal. Adrenal glands: Normal left adrenal gland. Right adrenal nodule measures craniocaudal 4.9 cm, anterior-posterior 5.3 cm, transverse 3.9 cm. It contains small foci of macroscopic fat. No change compared to prior imaging of March 2017 and therefore likely benign. Kidneys: Symmetric nephrograms. No significant atrophy. No suspicious lesions. Normal collecting systems and proximal ureters. Retroperitoneum: No mass or lymphadenopathy. Vasculature: Prominent circumferential calcifications of the aorta with mild nonaneurysmal ectasia of the infrarenal abdominal aorta, prominent calcified plaque with what appears to be a short stent in the proximal right renal artery, stent of the right common iliac artery. Stomach: No acute process. Small bowel: Evaluated portions are unremarkable. Normal mesentery. Large bowel: Evaluated portions of the large bowel exhibit no acute process. There is diverticulosis of the distal large bowel without visible diverticulitis. Free fluid or free air: None. CT/Abdomen WITH IV Contrast IMPRESSION: Stable right adrenal nodule containing macroscopic fat and exhibiting benign features. No acute upper abdominal process is otherwise evident. Electronically Signed: Glen Stevenson, at 16:53 EDT Tel , Service support , CC: Fany Hobson DO; Marybeth Millan MD Member Of The Legislative Assembly: Signed CHEST WITH CONTRAST Observed: 01/13/2018 Status: F Source: [place] 1:26 PM [facility] REPOS[facility] Imaging Services [address] [place] [address] Chest WITH Contrast MR#: [id number] Acct: [id number] Name: JV DURHAM Rep #: [id number] : 1945 72 From: Glen Stevenson MD PCP: Fany Hobson DO Status: REG CLI Study: Chest WITH Contrast Date of Exam: 01/13/18 Exam# [id number] Ordering Dr: Marybeth Millan MD STUDY: CT CHEST WITH CONTRAST REASON FOR EXAM: Male, 72 years old. Neoplasm of the upper lobe of the lung. Follow-up. RADIATION DOSAGE (If Supplied By Facility): CTDIvol = ( 24.64 ) mGy, DLP = ( 1987.55 ) mGycm TECHNIQUE: Transaxial imaging was performed following intravenous administration of 100 ml of Isovue 300 contrast material. Coronal and sagittal 2-D MPR. Individualized dose optimization techniques were used for this CT. COMPARISON: CTA chest 03/18/2017. FINDINGS: Supraclavicular: No acute process. Thoracic body wall soft tissues: No acute process. Next line upper abdomen: Stable right adrenal nodule described in the CT abdomen dictation. Please see that report. Osseous structures: Median sternotomy. No acute process. Mediastinum: Normal esophagus. No mass or lymphadenopathy. Heart: Borderline cardiomegaly, no pericardial effusion, coronary calcifications, CABG. Aorta: Nondilated, mild arch atherosclerosis. Pulmonary arteries: Mildly ectatic, no evidence of central or peripheral pulmonary embolus. Lungs: Background pulmonary pattern consistent with underlying COPD/emphysema with scar at the left lung apex. A few tiny scattered pulmonary nodules are present bilaterally the largest on the left measuring about 4 mm, on image 41. Nonspecific. There is mild subpleural reticulation in the lungs bilaterally consistent with smoking history. There is no acutely suspicious lesion. CT/Chest WITH Contrast IMPRESSION: Left lung apical scar consistent with prior resection. Scattered small pulmonary nodules are nonspecific and should be followed according to the Fleischner Society Criteria. At a minimum and low dose screening chest CT is recommended in 1 year. COPD/emphysema. Electronically Signed: [place], at 17:01 EDT Tel , Service support , CC: Fany Hobson DO; Marybeth Millan MD Member Of The Legislative Assembly: Signed 12 LEAD ELECTROCARDIOGRAM Observed: 12/25/2017 Status: F Source: [place] 1:10 PM [facility] Cardiovascular Services [address] [place] [id number] 12 Lead EKG 12/21/17 2338 MR#: [id number] Acct: [id number] Name: JV DURHAM Jr. Rep #: [id number] : 1945 72 From: Yash Browning MD Attending Dr: May Tirado MD Status: DIS IN Ordering Dr: Peace Gallardo MD Date: 12/21/17 [place] [facility] Sex: M C Admitted: 12/23/17 Test Reason : FEVER Blood Pressure : / mmHG Vent. Rate : 086 BPM Atrial Rate : 087 BPM P-R Int : 000 ms QRS Dur : 088 ms QT Int : 386 ms P-R-T Axes : 000 -36 025 degrees QTc Int : 461 ms Atrial fibrillation Left axis deviation Abnormal ECG Confirmed by CORTEZ CLEARY, YASH ([id number]), associate entertainment editor ALEXIS RO ([id number]) on 12/25/2017 1:09:48 PM Referred By: Jv Salazar Confirmed By:YASH BROWNING MD 12/25/17 1309 Date Yash Browning MD CC: Peace Gallardo MD; Fany Hobson DO; May Tirado MD Signed DISCHARGE SUMMARY Observed: 12/24/2017 Status: F Source: [place] 3:00 PM [facility] Medical Records Department [address] [place] [address] Discharge Summary 12/24/17 1122 MR#: [id number] Acct: [id number] Name: JV DURHAM Merary Greer Rep #: [id number] : 1945 72 From: May Tirado MD PCP: Fany Hobson DO Status: DIS IN Y Location[place] [facility] [id number] Discharge Date and Diagnosis - Problem List Patient Problems: Active and Suspected Problems (Last Reviewed 12/22/17 @ 06:26 by Pirnce Hua MD) Cellulitis (Acute) Date of Admission: 12/22/17 Date of Discharge: 12/24/17 - Primary Discharge Diagnosis Active and Suspected Problems (Last Reviewed 12/22/17 @ 06:26 by Prince Hua MD) Cellulitis (Acute) - Secondary Discharge Diagnosis Chronic Problems (Last Reviewed 12/22/17 @ 06:26 by Prince Hua MD) Chronic atrial fibrillation (Chronic) angiolasty and stenting to BLE iliac arteries (Chronic 08/04/12) History of left heart catheterization (Chronic 12/04/16) Widely patent HERRERA and SVG grafts per [facility] 05/07/[address] Germain [facility]; [facility] 05/16/[address] Naylor @ [facility] History of coronary artery stent placement (Chronic 12/23/06) OKD-IXV-GBAB anastomosis-LAD w/ Taxus 2.75 x 8 mm and POBA- PDA 12/23/2006 History of cardioversion (Chronic 12/2016) Iron deficiency anemia due to chronic blood loss (Chronic) Gastric AVMs, September 2017 Secondary pulmonary arterial hypertension (Chronic) Atherosclerosis of coronary artery of [place] heart without angina pectoris (Chronic) CABG x 2 HERRERA-LAD, SVG-OM 02/14/2006 NWE-KEG-VAXS anastomosis-LAD w/ Taxus 2.75 x 8 mm and POBA- PDA 12/23/2006 H/O coronary artery bypass surgery (Chronic 02/14/06) CABG x 2 HERRERA-LAD, SVG-OM 02/14/[address] Fei Castillo, [facility] Course and Treatment Imaging Results: Diagnostic Data Tibia/Fibula X-Ray 12/21/17 23:19 IMPRESSION: No demonstrated fracture, dislocation, or destructive osseous lesion. Electronically Signed: Gaurav Douglas MD at 0:25 EDT , Service support , Chest X-Ray 12/21/17 23:30 IMPRESSION: No acute pulmonary findings. Electronically Signed: Chava Latham MD at 0:05 EDT Tel , Service support , Laboratory Tests WBC 16.8 H RBC 3.55 L Hgb 10.3 L Hct 31.8 L MCV 89.6 MCH 29.0 MCHC 32.4 RDW 15.6 H WBC RBC Hgb WBC RBC Hgb WBC RBC Hgb WBC RBC Hgb Hct MCV MCH MCHC RDW RDW Differential Plt Count MPV Immature Gran % (Auto) Operations: None Procedures: None Summary of Care Provided: The Patient is a 72-year-old male with a history of diabetes type 2, CAD, COPD, hypertension and A. fib. He was admitted with a complaint of chills and subjective fever for the past few days and had noticed redness and swelling in his left lower extremity 1 day prior to admission. Swelling had progressively increasing pain had worsened. Vitals were stable and labs were unremarkable. Imaging done of the left lower extremity showed no acute event. He was managed for cellulitis of the left lower extremity, on IV vancomycin. Patient remained stable and erythema swelling and tenderness resolved. Blood cultures were ordered, pending at time of discharge still. Patient remained stable and was discharged home on 12/24/17 on p.o. Keflex 500 mg every 6 hours x 7 days. He is to follow up with his PCP in one week. Patient seen and examined on 12/24/17 prior to discharge. He had no complaints and felt very well. He denied any fever, chills, cough, chest pain, SOB, pain, diarrhea or vomiting. Left lower extremity swelling had resolved significantly patient felt much better. o/e: General: Alert, Oriented x3, Cooperative, No apparent distress HEENT: Atraumatic, PERRLA, EOMI, Normocephalic Oral: Moist Mucosa Neck: Supple, No JVD, Negative Carotid Bruits Lungs: Clear to auscultation, Normal air movement, No rhonchi, No wheeze, No rales Cardiovascular: Regular rate, Regular Rhythm, Normal S1, Normal S2, No murmurs Abdomen: Bowel Sounds Present, Soft, Non Tender, Non-Distended, No Hepato-splenomegaly Extremities: Mildly Diminished Peripheral Pulses - Diminished DP and PT pulses bilaterally. Erythema and swelling of left fisher and left thigh have resolved significantly. Has healing ulceration of left big toe, which is likely the source of cellulitis Musculoskeletal: No Tenderness to Palpation of Joints or Extremities Lymphatic: No Cervical, Supraclavicular, or Inguinal Adenopathy Neurological: Cranial nerves II-XII grossly intact Psych/Mental Status: Normal Affect, Appropriate, Alert and oriented to time, place, person, mood and affect Plan as stated above. This note was generated with [employer] dictation software. It may contain incorrect words, spelling, and punctuation that were not noted in checking the note before signing. [] Discharge Diet: 1800 Calorie Control Diet Discharge Activity: Return to Normal Activity Weight Bearing Status: Weight bearing as tolerated Call your doctor if you observe: Fever of 101 or Higher, - - redness, pain and swelling of extremity Home Medications: Medications to take at Discharge Fenofibrate [Tricor] 145 mg PO DAILY 05/06/13 Folic Acid 1 mg PO DAILY@1200 05/06/13 Tiotropium [place] [Spiriva 18 MCG] 1 puff INHALATION DAILY 05/06/13 Duloxetine HCl 60 mg PO QHS 12/04/16 Pramipexole Di-HCl [Mirapex] 0.75 mg PO TID 12/04/16 Digoxin 250 mcg PO DAILY 02/27/17 furosemide 40 mg tablet 40 mg PO QODAY tab 09/25/17 metoprolol tartrate 25 mg tablet 25 mg PO QDAY #30 tab 09/25/17 pravastatin 40 mg tablet 40 mg PO QHS 09/25/17 aspirin 81 mg tablet,delayed release 81 mg PO QDAY 10/06/17 cyanocobalamin (vit B-12) 1,000 mcg tablet 1,000 mcg PO DAILY@1200 10/20/17 docusate sodium 100 mg capsule 100 mg PO BID cap 10/20/17 gabapentin 600 mg tablet 1,200 mg PO QHS tab 10/20/17 potassium chloride ER 20 mEq tablet,extended release 10 meq PO DAILY 10/20/17 Budesonide [Pulmicort] 0.25 mg IH TID 10/23/17 Furosemide [Lasix] 20 mg PO QODAY 10/23/17 Formoterol Fumarate [Perforomist] 20 mcg INHALATION BID 12/22/17 Multivit-Min/Iron Fum/Folic AC [Shcva-Etsuvsp-Lfuezzcu Tablet] 1 each PO DAILY@1200 12/22/17 Omeprazole 20 mg PO DAILY@1700 12/22/17 Rivaroxaban [Xarelto] 10 mg PO DAILY@1700 12/22/17 Sennosides/Docusate Sodium [Senna-Docusate Sodium Tablet] 1 each PO QHS 12/22/17 Valsartan [Diovan] 40 mg PO DAILY 12/22/17 Cephalexin 500 mg PO 4X/DAY 7 Days #28 cap 12/24/17 Following Prescrptions Were Given to Patient: Cephalexin 500 mg PO 4X/DAY 7 Days #28 cap Primary Care Physician: Fany Hobson DO [Primary Care Provider] - Please follow up with your Primary Care Physician in: one week Disposition: Home Minutes spent on discharge:: 40 Patient Condition:: Good Medical Necessity - Tobacco Use Smoking Status: Former smoker Meaningful Use Info Meaningful Use Diagnoses (Choose all that apply): None applicable Code Visit Inpatient E AND M: 87251 Disch Hosp 12/24/17 1500 <Electronically signed by May Tirado MD> Date May Tirado MD Cosigner Signature (if applicable): Date CC: Fany Hobson DO; May Tirado MD Signed DISCHARGE INSTRUCTION Observed: 12/24/2017 Status: F Source: [place] 11:22 AM [facility] Medical Records Department [address] [place] [address] Instructions for Home/Discharge Instructions 12/24/17 1121 MR#: [id number] Acct: [id number] Name: MARVAJV Merary Greer Rep #: [id number] : 1945 72 From: May Tirado MD PCP: Fany Hobson DO Status: ADM IN - Discharge Diagnoses Current Active Problems: Current Active and Chronic Problems (Last Reviewed 12/22/17 @ 06:26 by Prince Hua MD) Cellulitis (Acute) You will use the following diet at home:: Calorie/Carbohydrate Controlled (specify 1200, 1400, etc) Your food should be the consistency of: Regular Your liquids should be the consistency of: Regular/Thin Discharge Activity: Return to Normal Activity Weight Bearing Status: Weight bearing as tolerated Call your doctor if you observe: Fever of 101 or Higher, - - redness, pain and swelling of extremity Allergies/Adverse Reactions: Allergies No Known Allergies Allergy (Verified 12/21/17 21:32) Medications to take at Discharge Fenofibrate [Tricor] 145 mg PO DAILY 05/06/13 Folic Acid 1 mg PO DAILY@1200 05/06/13 Tiotropium [place] [Spiriva 18 MCG] 1 puff INHALATION DAILY 05/06/13 Duloxetine HCl 60 mg PO QHS 12/04/16 Pramipexole Di-HCl [Mirapex] 0.75 mg PO TID 12/04/16 Digoxin 250 mcg PO DAILY 02/27/17 furosemide 40 mg tablet 40 mg PO QODAY tab 09/25/17 metoprolol tartrate 25 mg tablet 25 mg PO QDAY #30 tab 09/25/17 pravastatin 40 mg tablet 40 mg PO QHS 09/25/17 aspirin 81 mg tablet,delayed release 81 mg PO QDAY 10/06/17 cyanocobalamin (vit B-12) 1,000 mcg tablet 1,000 mcg PO DAILY@1200 10/20/17 docusate sodium 100 mg capsule 100 mg PO BID cap 10/20/17 gabapentin 600 mg tablet 1,200 mg PO QHS tab 10/20/17 potassium chloride ER 20 mEq tablet,extended release 10 meq PO DAILY 10/20/17 Budesonide [Pulmicort] 0.25 mg IH TID 10/23/17 Furosemide [Lasix] 20 mg PO QODAY 10/23/17 Formoterol Fumarate [Perforomist] 20 mcg INHALATION BID 12/22/17 Multivit-Min/Iron Fum/Folic AC [Gavko-Yuwzmur-Qshpwwrq Tablet] 1 each PO DAILY@1200 12/22/17 Omeprazole 20 mg PO DAILY@1700 12/22/17 Rivaroxaban [Xarelto] 10 mg PO DAILY@1700 12/22/17 Sennosides/Docusate Sodium [Senna-Docusate Sodium Tablet] 1 each PO QHS 12/22/17 Valsartan [Diovan] 40 mg PO DAILY 12/22/17 Cephalexin 500 mg PO 4X/DAY 7 Days #28 cap 12/24/17 The following prescriptions were given: Cephalexin 500 mg PO 4X/DAY 7 Days #28 cap Primary Care Physician: Fany Hobson DO [Primary Care Provider] - Please follow up with your Primary Care Physician in: one week Test Results: Test results from this visit will be discussed in further detail at your follow-up appointment, if applicable. Proposed Discharge Date: 12/24/17 12/24/17 1122 <Electronically signed by May Tirado MD> Date May Tirado MD CC: Fany Hobson DO BEDSIDE GLUCOSE Collected: 12/24/2017 Status: F Source: [place] 10:45 AM [facility] TYPE CODE TESTS RESULT OUT OF REFERENCE UNITS RANGE LAB L501.080 70-110 mg/dL High BEDSIDE GLU 190 Result Comment: MANAGEMENT OF PATIENT CARE PER NURSING PROTOCOL Performed By: #### L501.080 #### [facility] Point of Care [address] [place] [address] CBC W/DIFF, AUTOMATED Collected: 12/24/2017 Status: F Source: [place] 8:06 AM [facility] TYPE CODE TESTS RESULT OUT OF RANGE REFERENCE UNITS LAB L100.1000 4.4-11.0 K/mm3 Normal WBC 9.3 LAB L100.1200 4.6-6.2 M/mm3 Low RBC 3.54 LAB L100.1300 13.0-16.5 g/dl Low HGB 9.7 LAB L100.1400 40-54 % Low HCT 32.1 LAB L100.1500 80-94 fL Normal MCV 90.7 LAB L100.1600 27.0-32.0 pg Normal MCH 27.4 LAB L100.1700 32-36 g/gl Low MCHC 30.2 LAB L100.1810 11.6-14.6 % High RDW CV 15.6 LAB L100.1820 35.1-43.9 fl High RDW SD 51.9 LAB L100.1900 150-450 K/mm3 Normal PLT 226 LAB L100.2000 6.2-12.0 fl Normal MPV 9.8 LAB L100.2100 47-70 % High NEUT% 79.0 LAB L100.2200 19-41 % Low LY% 8.5 LAB L100.2300 0-10 % Normal MONO% 8.3 LAB L100.2400 0-5 % Normal EO% 3.9 LAB L100.2500 0-1 % Normal BASO% 0.3 LAB L100.2550 0.0-0.9 % Normal IM GRAN % 0.000 Result Comment: IG% - Immature Granulocytes (promyelocytes, myelocytes and metamyelocytes) > 1% indicates that a LEFT SHIFT is Present. LAB L100.2620 2.0-7.7 X10 3/uL Normal Absolute Neut 7.3 LAB L100.2720 0.83-4.51 X10 3/ul Low Absolute Lymph 0.79 Performed By: #### L100.0100 #### [facility] [address] [place], [address] BASIC METABOLIC Collected: 12/24/2017 Status: F Source: [place] PROFILE (BMP) 8:06 AM [facility] TYPE CODE TESTS RESULT OUT OF RANGE REFERENCE UNITS LAB L501.0100 74-106 mg/dL Normal GLU 96 Result Comment: Please note revised GLUCOSE reference range effective 2017. LAB L501.1000 7-18 mg/dL Low BUN 6 LAB L501.1100 0.70-1.30 mg/dL Normal CREAT,SERUM 0.80 Result Comment: The validity of the calculated GFR AND GFRAA in patients over 70 years has not been determined. Clinical correlation is essential. LAB L501.1110 >60 mL/min Normal EST GFR 101 Result Comment: Non- GFR Calc LAB L501.1115 >60 mL/min Normal EST GFR - AA 122 Result Comment: GFR Calc LAB L501.1255 ml/min Normal Estimated CRCL 83.47 LAB L501.1300 10-20 RATIO Low BUN/CRE 7.5 LAB L501.2200 8.5-10 mg/dL Low .1 CA 8.1 LAB L501.5300 136-14 mmol/L Normal 5 NA 142 LAB L501.5600 3.5-5. mmol/L Normal 1 K 3.9 LAB L501.5900 98-107 mmol/L Normal CL 107 LAB L501.6100 21.0-3 mmol/L Normal 2.0 CO2 28.0 LAB L501.6200 5-15 Normal GAP 7 Performed By: #### L500.2500 #### [facility] [address] [place], [address] BEDSIDE GLUCOSE Collected: 12/24/2017 Status: F Source: [place] 6:28 AM [facility] TYPE CODE TESTS RESULT OUT OF RANGE REFERENCE UNITS LAB L501.080 70-110 mg/dL Normal BEDSIDE GLU 94 Result Comment: MANAGEMENT OF PATIENT CARE PER NURSING PROTOCOL Performed By: #### L501.080 #### [facility] Point of Care [address] [place] [address] VENOUS DUPLEX LOWER Observed: 12/23/2017 Status: F Source: [place] EXTREMITY 5:39 PM [facility] Cardiovascular Services [address] [place] [address] Venous Duplex US - Jasmeet Extrem 12/22/17828 MR#: [id number] Acct: [id number] Name: JV DURHAM Jr. Rep #: [id number] : 1945 72 From: Leon Padron MD Attending Dr: May Tirado MD Status: ADM IN Ordering Dr: Prince Hua MD Date: 12/22/17 Location: [facility] Sex: M C Admitted: 12/23/17 Reason For Study: Cellulitis RIGHT LEFT GSV is normal. CFV is compressible, spontaneous, phasic, CFV is compressible, spontaneous, phasic, competent, and demonstrates normal competent and demonstrates normal augmentation. augmentation. FV is compressible, spontaneous, phasic, FV is compressible, spontaneous, phasic, competent and demonstrates normal competent and demonstrates normal augmentation. augmentation. POP V is compressible, spontaneous, phasic, POP V is compressible, spontaneous, phasic, competent and demonstrates normal competent and demonstrates normal augmentation. augmentation. T/P Trunk is compressible. T/P Trunk is compressible. PTV is compressible. PTV is compressible. LT PerV is compressible. RT PerV is compressible. GSV harvested. Interpretation Summary Deep veins of the lower extremities are bilaterally patent and compressible segmentally. There is no evidence of deep vein thrombosis on either side. Valvular competence appears intact within the proximal deep venous systems bilaterally. The right greater saphenous vein appears patent and compressible segmentally. The left greater saphenous vein is absent, having been previously harvested. Ordering Physician: Prince Hua Referring Physician: Jv Salazar V Performed By: Emilie Amezcua RVT 07/04/02 1738 Date Leon Padron MD CC: Fany Hobson DO; May Tirado MD; Prince Hua MD Date Dictated: 12/22/17828 Date Transcribed: 12/23/171737 Member Of The Legislative Assembly: Signed BEDSIDE GLUCOSE Collected: 12/23/2017 Status: F Source: [place] 3:46 PM [facility]POS[facility] TYPE CODE TESTS RESULT OUT OF REFERENCE UNITS RANGE LAB L501.080 70-110 mg/dL High BEDSIDE GLU 122 Result Comment: MANAGEMENT OF PATIENT CARE PER NURSING PROTOCOL Performed By: #### L501.080 #### [facility] Point of Care [address] [place], [place] [address] VANCOMYCIN, TROUGH Collected: 12/23/2017 Status: F Source: [place] LEVEL 2:35 PM [facility] RE[facility] Order Comment: Time Medication is to be Given? 1500 TYPE CODE TESTS RESULT OUT OF RANGE REFERENCE UNITS LAB L501.8820 5.0-15.0 ug/mL Normal VANCO, TROUGH 13.8 Result Comment: VANCOMYCIN STANDARED DRUG THERAPY TROUGH LEVEL: 5.0 - 15.0 mg/L VANCOMYCIN HIGH INTENSITY THERAPY TROUGH LEVEL: 15.0 - 20.0 mg/L High Intensity therapy recommended for serious life threatening infections include: - Meningitis -Endocarditis -Pneumonia (Ventilator/Healtcare Associated) -Sepsis PLEASE CONTACT PHARMACY SERVICES (#[id number]) FOR INTERPRETATION OF RESULTS. Performed By: #### L501.8820 #### [facility] [address] [place], [place], [address] BEDSIDE GLUCOSE Collected: 12/23/2017 Status: F Source: [place] 11:09 AM [facility] TYPE CODE TESTS RESULT OUT OF REFERENCE UNITS RANGE LAB L501.080 70-110 mg/dL High BEDSIDE GLU 145 Result Comment: MANAGEMENT OF PATIENT CARE PER NURSING PROTOCOL Performed By: #### L501.080 #### [facility] Point of Care [address] [place], [place] [address] CBC W/DIFF, AUTOMATED Collected: 12/23/2017 Status: F Source: [place] 8:06 AM [facility] TYPE CODE TESTS RESULT OUT OF RANGE REFERENCE UNITS LAB L100.1000 4.4-11.0 K/mm3 Normal WBC 9.4 LAB L100.1200 4.6-6.2 M/mm3 Low RBC 3.45 LAB L100.1300 13.0-16.5 g/dl Low HGB 9.5 LAB L100.1400 40-54 % Low HCT 31.7 LAB L100.1500 80-94 fL Normal MCV 91.9 LAB L100.1600 27.0-32.0 pg Normal MCH 27.5 LAB L100.1700 32-36 g/gl Low MCHC 30.0 LAB L100.1810 11.6-14.6 % High RDW CV 16.1 LAB L100.1820 35.1-43.9 fl High RDW SD 54.3 LAB L100.1900 150-450 K/mm3 Normal PLT 211 LAB L100.2000 6.2-12.0 fl Normal MPV 9.9 LAB L100.2100 47-70 % High NEUT% 79.1 LAB L100.2200 19-41 % Low LY% 9.5 LAB L100.2300 0-10 % Normal MONO% 8.2 LAB L100.2400 0-5 % Normal EO% 2.9 LAB L100.2500 0-1 % Normal BASO% 0.2 LAB L100.2550 0.0-0.9 % Normal IM GRAN % 0.100 Result Comment: IG% - Immature Granulocytes (promyelocytes, myelocytes and metamyelocytes) > 1% indicates that a LEFT SHIFT is Present. LAB L100.2620 2.0-7.7 X10 3/uL Normal Absolute Neut 7.4 LAB L100.2720 0.83-4.51 X10 3/ul Normal Absolute Lymph 0.89 Performed By: #### L100.0100 #### [facility] [address] [place], [address] BASIC METABOLIC Collected: 12/23/2017 Status: F Source: [place] PROFILE (BMP) 8:06 AM [facility] TYPE CODE TESTS RESULT OUT OF RANGE REFERENCE UNITS LAB L501.0100 74-106 mg/dL Normal GLU 99 Result Comment: Please note revised GLUCOSE reference range effective 2017. LAB L501.1000 7-18 mg/dL Normal BUN 9 LAB L501.1100 0.70-1.30 mg/dL Normal CREAT,SERUM 0.77 Result Comment: The validity of the calculated GFR AND GFRAA in patients over 70 years has not been determined. Clinical correlation is essential. LAB L501.1110 >60 mL/min Normal EST GFR 105 Result Comment: Non- GFR Calc LAB L501.1115 >60 mL/min Normal EST GFR - AA 127 Result Comment: GFR Calc LAB L501.1255 ml/min Normal Estimated CRCL 66.77 LAB L501.1300 10-20 RATIO Normal BUN/CRE 11.7 LAB L501.2200 8.5-10 mg/dL Low .1 CA 8.1 LAB L501.5300 136-14 mmol/L Normal 5 NA 143 LAB L501.5600 3.5-5. mmol/L Normal 1 K 3.9 LAB L501.5900 98-107 mmol/L High CL 109 LAB L501.6100 21.0-3 mmol/L Normal 2.0 CO2 26.0 LAB L501.6200 5-15 Normal GAP 8 Performed By: #### L500.2500 #### [facility] [address] [place] [address]. [place], [place], [address] BEDSIDE GLUCOSE Collected: 12/23/2017 Status: F Source: [place] 6:20 AM [facility] TYPE CODE TESTS RESULT OUT OF RANGE REFERENCE UNITS LAB L501.080 70-110 mg/dL Normal BEDSIDE GLU 104 Result Comment: MANAGEMENT OF PATIENT CARE PER NURSING PROTOCOL Performed By: #### L501.080 #### [facility] [address] [facility] [place], [place] [address] BEDSIDE GLUCOSE Collected: 12/22/2017 Status: F Source: IV[place] 4:22 PM [facility] TYPE CODE TESTS RESULT OUT OF RANGE REFERENCE UNITS LAB L501.080 70-110 mg/dL Normal BEDSIDE GLU 81 Result Comment: MANAGEMENT OF PATIENT CARE PER NURSING PROTOCOL Performed By: #### L501.080 #### [facility] Point of Care [address] [place] [address] BEDSIDE GLUCOSE Collected: 12/22/2017 Status: F Source: [place] 11:04 AM [facility] TYPE CODE TESTS RESULT OUT OF REFERENCE UNITS RANGE LAB L501.080 70-110 mg/dL High BEDSIDE GLU 134 Result Comment: MANAGEMENT OF PATIENT CARE PER NURSING PROTOCOL Performed By: #### L501.080 #### [facility] Point of Care [address] [place] [address] EMERGENCY DEPARTMENT Observed: 12/22/2017 Status: F Source: IVIS SUMMARY 7:43 AM [facility] REPOSITORY [facility] Medical Records Department [address] [place] [address] Emergency Department Summary 12/21/17 2321 MR#: [id number] Acct: [id number] Name: JV DURHAM Jr. Rep #: [id number] : 1945 72 From: Peace Gallardo MD PCP: Fany Hobson DO Status: ADM HERO - ER Visit Summary Date of Service: 12/21/17 Chief Complaint: Fever History of Present Illness: The patient is a 72 M presenting with fever. Patient states that he has had generalized weakness today. Last night he noticed shaking chills and subjective fever. His symptoms persisted today. He states when he got up to go to the bathroom last night he hit his left leg on the bed. He has been able to ambulate. Today noticed increasing redness of that area. He had Tylenol around 8 PM. He has had temperatures up to 100 at home. He denies chest pain. Complains of shortness of breath. He has nausea with no vomiting. He has mild diarrhea. Denies dysuria. He has a history of lung cancer and finished chemotherapy recently. Physical Examination: Vitals are stable. Temperature 100.4. Alert no acute distress. HEENT exam is unremarkable. Neck is supple. Lungs are clear and equal bilaterally. Heart is regular rate and rhythm. Abdomen is soft nontender nondistended. Extremities left lower extremity anterior erythema and warmth, mild symmetric edema Skin is warm and dry. No focal neurologic deficit. Remainder of exam is unremarkable. Emergency Department Course and Treatment: Chest x-ray shows no acute process. Left tib-fib x-ray shows no fracture. EKG is A. fib rate of 86. CBC shows a white count of 16.8, hemoglobin 10.3. Chemistries show potassium 3.4, glucose 118. Urinalysis unremarkable. Lactic acid is normal. Troponin is 0.052. Digoxin level is 1.26. Patient denies any chest pain. He was given Ancef IV for cellulitis. Will discuss with the hospitalist for admission. Disposition: Admission Impression: Febrile illness, generalized weakness, left lower extremity cellulitis This note was generated with [employer] dictation software. It may contain incorrect words, spelling, and punctuation that were not noted in review of the chart prior to signing ED Disposition - Plan for ED Patient: Chief Complaint: Fever Referrals: Fany Hobson, [Primary Care Provider] - What to do if you have Problems For any increased pain, shortness of breath, bleeding, nausea or vomiting, chest pain, or any unexpected problems, contact your Primary Care Provider. Call [facility] ([phone]) or report to the closest Emergency Room. Call 911 if necessary. 12/22/17 0743 <Electronically signed by Peace Gallardo MD> Date Peace Gallardo MD Cosigner Signature (If Indicated): Date CC: Fany Hobson DO BEDSIDE GLUCOSE Collected: 12/22/2017 Status: F Source: [place] 6:43 AM [facility] REPOSITORY TYPE CODE TESTS RESULT OUT OF REFERENCE UNITS RANGE LAB L501.080 70-110 mg/dL High BEDSIDE GLU 117 Result Comment: MANAGEMENT OF PATIENT CARE PER NURSING PROTOCOL Performed By: #### L501.080 #### [facility] Point of Care [address] [place] [address] HISTORY AND PHYSICAL Observed: 12/22/2017 Status: F Source: [place] EXAM 6:28 AM [facility] REPOSITORY [facility] Medical Records Department [address] [place] [address] History and Physical 12/22/1716 MR#: [id number] Acct: [id number] Name: JV DURHAM Jr. Rep #: [id number] : 1945 72 From: Prince Hua MD PCP: Fany Hobson DO Status: ADM HERO Y Location: [place] [id number] Problem List (1) Cellulitis Status: Acute (2) History of coronary artery stent placement Status: Chronic Comment: [id number]-[id number] anastomosis-LAD w/ Taxus 2.75 x 8 mm and POBA-PDA 12/23/2006 (3) Left VATS procedure with wedge resection KATIE Status: Acute (4) History of cardioversion Status: Chronic (5) Iron deficiency anemia due to chronic blood loss Status: Chronic Comment: Gastric AVMs, September 2017 (6) Constipation Status: Acute Qualifiers: (7) Secondary pulmonary arterial hypertension Status: Chronic (8) 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 He has been having chill and subjective fever for the past few days. He noted redness and swelling in his left foot yesterday. Swelling has increased over the past day. Pain increase is cramping and severe. Nothing makes it better or worse. Pain is severe. Past Medical History Past Medical History (Chronic Problems): Chronic Problems (Last Reviewed 10/23/17 @ 10:35 by Dagmar Strickland) Chronic atrial fibrillation (Chronic) angiolasty and stenting to BLE iliac arteries (Chronic 08/04/12) History of left heart catheterization (Chronic 12/04/16) Widely patent HERRERA and SVG grafts per [facility] 05/07/[address] Germain [facility]; [facility] 05/16/[address] Naylor @ [facility] History of coronary artery stent placement (Chronic 12/23/06) [id number] anastomosis-LAD w/ Taxus 2.75 x 8 mm and POBA- PDA 12/23/2006 History of cardioversion (Chronic 12/2016) Iron deficiency anemia due to chronic blood loss (Chronic) Gastric AVMs, September 2017 Secondary pulmonary arterial hypertension (Chronic) Atherosclerosis of coronary artery of [place] heart without angina pectoris (Chronic) CABG x 2 HERRERA-LAD, SVG-OM 02/14/2006 [id number]-[id number]-[id number] anastomosis-LAD w/ Taxus 2.75 x 8 mm and POBA- PDA 12/23/2006 H/O coronary artery bypass surgery (Chronic 02/14/06) CABG x 2 HERRERA-LAD, SVG-OM 02/14/[address] Fei Castillo, [facility] Medical History: Medical History (Last Reviewed 12/22/17 @ 06:26 by Prince Hua MD) GI bleed (Acute) K92.2 tsferred to [facility], transfused with 2 units PRBC's. Chronic atrial fibrillation (Chronic) I48.2 port placement (Acute) Secondary pulmonary arterial hypertension (Chronic) I27.21 Atherosclerosis of coronary artery of [place] heart without angina pectoris (Chronic) I25.10 CABG x 2 HERRERA-LAD, SVG-OM 02/14/2006 GTK-NML-VAZP anastomosis-LAD w/ Taxus 2.75 x 8 mm and POBA- PDA 12/23/2006 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 (Acute) C34.12 Chemotherapy induced neutropenia (Acute) D70.1, T45.1X5A Anemia (Acute) D64.9 COPD (chronic obstructive pulmonary disease) (Acute) J44.9 Dyspnea (Acute) R06.00 Diabetes (Acute) E11.9 Neuropathy (Acute) G62.9 Arthritis (Acute) M19.90 Obesity (Acute) E66.9 Alcohol dependence (Acute) F10.20 GERD (gastroesophageal reflux disease) (Acute) K21.9 DJD (degenerative joint disease) (Acute) M19.90 Vascular disease (Acute) I99.9 Renal disease (Acute) N28.9 Macular degeneration (Acute) H35.30 Arrhythmia (Acute) I49.9 Migraine (Acute) G43.909 Memory loss (Acute) R41.3 Hypotestosteronism (Acute) E34.9 Essential tremor (Acute) G25.0 Parkinsons (Acute) G20 Dementia (Acute) F03.90 HEBER (obstructive sleep apnea) (Acute) G47.33 Benign essential hypertension (Acute) I10 Hammertoes of both feet (Acute) M20.41, M20.42 Allergies No Known Allergies Allergy (Verified 12/21/17 21:32) Home Medications: Ambulatory Orders Medication Instructions Recorded Fenofibrate [Tricor] 145 mg PO DAILY 05/06/13 Folic Acid 1 mg PO DAILY@0800 05/06/13 Tiotropium [place] [Spiriva 18 MCG] 1 puff INHALATION DAILY 05/06/13 Surgical History: Surgical History (Last Reviewed 12/22/17 @ 06:26 by Prince Hua MD) angiolasty and stenting to BLE iliac arteries (Chronic) Onset Date: 08/04/12 History of left heart catheterization (Chronic) Onset Date: 12/04/16 Z98.890 Widely patent HERRERA and SVG grafts per [facility] 05/07/[address] Germain [facility]; [facility] 05/16/[address] Naylor @ [facility] History of coronary artery stent placement (Chronic) Onset Date: 12/23/06 Z95.5 PEO-CFK-UKFK anastomosis-LAD w/ Taxus 2.75 x 8 mm and POBA- PDA 12/23/2006 Left VATS procedure with wedge resection KATIE (Acute) History of cardioversion (Chronic) Onset Date: 12/2016 Z98.890 H/O coronary artery bypass surgery (Chronic) Onset Date: 02/14/06 Z95.1 CABG x 2 HERRERA-LAD, SVG-OM 02/14/[address] Fei Castillo, [facility] S/P CABG x 2 (Acute) Z95.1 Psychiatric History: No pertinent psych hx Smoking Status: Former smoker Alcohol: None Drugs: None Review of Systems Constitutional: Denies: Chills, Fever, Weight Change HEENT: Denies: Head Aches, Sinus Congestion, Sinus Drainage Cardiovascular: Denies: Chest Pain, Palpitations Respiratory: Denies: Cough, Shortness of breath at rest, Sputum production Gastrointestinal: Denies: Abdominal Pain, Nausea, Vomiting Genitourinary: Denies: Dysuria Musculoskeletal: Denies: Joint Pain, Joint Tenderness Skin: Denies: Rash, Wounds Neurological: Denies: Numbness, Tingling, Focal weakness Psychiatric: Denies: Anxiety, Depression, Homicidal Ideations, Suicidal Ideations Hematologic/ Lymphatic: Denies: Easy Bruising, Easy Bleeding VTE Information - Inpt Only VTE Present on Admission: No VTE Mechan Device Prophylaxis: SCD's VTE Pharm Prophylaxis ordered?: Yes Patient Problems: Active and Suspected Problems (Last Reviewed 10/23/17 @ 10:35 by Dagmar Strickland) Cellulitis (Acute) - Physical Exam General: Alert, Oriented x3, Cooperative HEENT: Atraumatic, PERRLA, EOMI, Normocephalic Neck: Supple, No JVD, Negative Carotid Bruits Lungs: Clear to auscultation, Normal air movement Cardiovascular: Regular rate, No murmurs Abdomen: Bowel Sounds Present, Soft, Non Tender Extremities: Capillary Refill Less than 3 Seconds, Edema Skin: No rashes, No breakdown Musculoskeletal: No Tenderness to Palpation of Joints or Extremities Neurological: Cranial nerves II-XII grossly intact Psych/Mental Status: Normal Affect, Appropriate Vital Signs Temp Pulse Resp BP Pulse Ox 98.0 F 84 18 137/56 H 100 12/22/17 02:22 12/22/17 02:35 12/22/17 02:22 12/22/17 02:22 12/22/17 02:22 Oxygen Flow Rate (L/min) 3 Oxygen Delivery Method Nasal Cannula Weight: 123.972 kg Body Mass Index (BMI) 40.4 Laboratory Tests Past 24 Hrs WBC Pending RBC Pending Hgb Pending Hct Pending MCV Pending MCH Pending MCHC Pending RDW Pending WBC RBC Hgb Hct MCV MCH MCHC RDW RDW Differential Assessment/Plan All Active Problems (Last Reviewed 10/23/17 @ 10:35 by Dagmar Strickland) Educational circumstance (Acute) Cellulitis (Acute) GI bleed (Acute) Left VATS procedure with wedge resection KATIE (Acute) port placement (Acute) Educational circumstance (Acute) Cancer of upper lobe of left lung (Acute) Antineoplastic chemotherapy induced anemia (Acute) Constipation (Acute) Primary [...] feet (Acute) S/P CABG x 2 (Acute) 72 year old male w/ h/o COPD, DMII, CAD, HTN, and afib admitted for cellulitis. 1) Cellulitis: Will start zosyn and vancomycin. Cultures pending. 2) Afib: Resume home meds. Monitor. 3) H/o lung cancer: Supportive care. 12/22/17 0628 <Electronically signed by Prince Hua MD> Date Prince Hua MD Cosigner Signature: Date (if applicable) CC: Fany Hobson DO; Prince Hua MD Signed BASIC METABOLIC Collected: 12/22/2017 Status: F Source: [place] PROFILE (BMP) 5:22 AM [facility] REPOSITORY Order Comment: 'TROP' Serial specimen #1, #2 or #3: 3 'TROP' Serial specimen #1, #2, #3, or #4: 3 TYPE CODE TESTS RESULT OUT OF RANGE REFERENCE UNITS LAB L501.0100 74-106 mg/dL High GLU 110 Result Comment: Fasting Glucose result from 100 to 125 mg/dL suggests IMPAIRED HOMEOSTASIS per A.D.A. criteria. Please note revised GLUCOSE reference range effective 2017. LAB L501.1000 7-18 mg/dL Normal BUN 10 LAB L501.1100 0.70-1.30 mg/dL Normal CREAT,SERUM 0.91 Result Comment: The validity of the calculated GFR AND GFRAA in patients over 70 years has not been determined. Clinical correlation is essential. LAB L501.1110 >60 mL/min Normal EST GFR 87 Result Comment: Non- GFR Calc LAB L501.1115 >60 mL/min Normal EST GFR - AA 105 Result Comment: GFR Calc LAB L501.1255 ml/min Normal Estimated CRCL 73.38 LAB L501.1300 10-20 RATIO Normal BUN/CRE 11.0 LAB L501.2200 8.5-10 mg/dL Low .1 CA 7.8 LAB L501.5300 136-14 mmol/L Normal 5 NA 145 LAB L501.5600 3.5-5. mmol/L Normal 1 K 3.5 LAB L501.5900 98-107 mmol/L High CL 109 LAB L501.6100 21.0-3 mmol/L Normal 2.0 CO2 29.0 LAB L501.6200 5-15 Normal GAP 7 Performed By: #### L500.2500, L501.4010, L100.0100 #### [facility] [address] [facility]. [place], [place], [address] TROPONIN-I Collected: 12/22/2017 Status: F Source: [place] 5:22 AM [facility] REPOSITORY Order Comment: 'TROP' Serial specimen #1, #2 or #3: 3 'TROP' Serial specimen #1, #2, #3, or #4: 3 TYPE CODE TESTS RESULT OUT OF RANGE REFERENCE UNITS LAB L501.4010 <0.045 ng/mL High 0.051 TROPONIN-I Result Comment: TROPONIN-I EXPECTED VALUES <0.045 Negative 0.045 - 0.590 Consistent with Cardiac Damage > OR = 0.600 Critical Value Not every elevated troponin is indicative of FL. These values should be used with clinical judgement in examining the patient's clinical picture for diagnosis. To establish a diagnosis of FL versus myocardial injury, there must be a demonstrated rise and/or fall in the troponin values, in addition to ischemic symptoms, EKG changes, new regional wall motion abnormality, and/or angiographical evidence. PLEASE NOTE: REFERENCE RANGES EDITED 17 Performed By: #### L500.2500, L501.4010, L100.0100 #### [facility] [address] [place], [place], [address] CBC W/DIFF, AUTOMATED Collected: 12/22/2017 Status: F Source: [place] 5:22 AM [facility] TYPE CODE TESTS RESULT OUT OF RANGE REFERENCE UNITS LAB L100.1000 4.4-11.0 K/mm3 Normal WBC 11.0 LAB L100.1200 4.6-6.2 M/mm3 Low RBC 3.42 LAB L100.1300 13.0-16.5 g/dl Low HGB 9.6 LAB L100.1400 40-54 % Low HCT 31.1 LAB L100.1500 80-94 fL Normal MCV 90.9 LAB L100.1600 27.0-32.0 pg Normal MCH 28.1 LAB L100.1700 32-36 g/gl Low MCHC 30.9 LAB L100.1810 11.6-14.6 % High RDW CV 15.9 LAB L100.1820 35.1-43.9 fl High RDW SD 52.9 LAB L100.1900 150-450 K/mm3 Normal PLT 207 LAB L100.2000 6.2-12.0 fl Normal MPV 9.8 LAB L100.2100 47-70 % High NEUT% 83.1 LAB L100.2200 19-41 % Low LY% 6.8 LAB L100.2300 0-10 % Normal MONO% 9.6 LAB L100.2400 0-5 % Normal EO% 0.3 LAB L100.2500 0-1 % Normal BASO% 0.1 LAB L100.2550 0.0-0.9 % Normal IM GRAN % 0.100 Result Comment: IG% - Immature Granulocytes (promyelocytes, myelocytes and metamyelocytes) > 1% indicates that a LEFT SHIFT is Present. LAB L100.2620 2.0-7.7 X10 3/uL High Absolute Neut 9.2 LAB L100.2720 0.83-4.51 X10 3/ul Low Absolute Lymph 0.75 Performed By: #### L500.2500, L501.4010, L100.0100 #### [facility] [address] [place], [place], [address] Observed: 12/22/2017 Status: F Source: [place] CULTURE, BLOOD (WB) 2:24 AM [facility] REPOSITORY BC No growth in 5 days. Performed By: #### M200.1000 #### [facility] [address] [place], [address] TROPONIN-I Collected: 12/22/2017 Status: F Source: [place] 2:19 AM [facility] REPOSITORY Order Comment: 'TROP' Serial specimen #1, #2 or #3: 1 'TROP' Serial specimen #1, #2, #3, or #4: 1 TYPE CODE TESTS RESULT OUT OF RANGE REFERENCE UNITS LAB L501.4010 <0.045 ng/mL High 0.059 TROPONIN-I Result Comment: TROPONIN-I EXPECTED VALUES <0.045 Negative 0.045 - 0.590 Consistent with Cardiac Damage > OR = 0.600 Critical Value Not every elevated troponin is indicative of FL. These values should be used with clinical judgement in examining the patient's clinical picture for diagnosis. To establish a diagnosis of FL versus myocardial injury, there must be a demonstrated rise and/or fall in the troponin values, in addition to ischemic symptoms, EKG changes, new regional wall motion abnormality, and/or angiographical evidence. PLEASE NOTE: REFERENCE RANGES EDITED 17 Performed By: #### L501.4010 #### [facility] [address] [place], [address] HEMOGLOBIN A1C Collected: 12/22/2017 Status: F Source: [place] 2:19 AM [facility] REPOSITORY TYPE CODE TESTS RESULT OUT OF RANGE REFERENCE UNITS LAB L501.9985 4.2-6.3 % Normal HGB A1C 5.6 Performed By: #### L501.9985 #### [facility] [address] [place], [address] Observed: 12/22/2017 Status: F Source: [place] CULTURE, BLOOD (WB) 2:19 AM [facility] REPOSITORY BC No growth in 5 days. Performed By: #### M200.1000 #### [facility] [address] [place], [address] CBC W/DIFF, AUTOMATED Collected: 12/21/2017 Status: F Source: [place] 11:45 PM [facility] REPOSITORY TYPE CODE TESTS RESULT OUT OF RANGE REFERENCE UNITS LAB L100.1000 4.4-11.0 K/mm3 High WBC 16.8 LAB L100.1200 4.6-6.2 M/mm3 Low RBC 3.55 LAB L100.1300 13.0-16.5 g/dl Low HGB 10.3 LAB L100.1400 40-54 % Low HCT 31.8 LAB L100.1500 80-94 fL Normal MCV 89.6 LAB L100.1600 27.0-32.0 pg Normal MCH 29.0 LAB L100.1700 32-36 g/gl Normal MCHC 32.4 LAB L100.1810 11.6-14.6 % High RDW CV 15.6 LAB L100.1820 35.1-43.9 fl High RDW SD 50.4 LAB L100.1900 150-450 K/mm3 Normal PLT 232 LAB L100.2000 6.2-12.0 fl Normal MPV 10.2 LAB L100.2100 47-70 % High NEUT% 87.5 LAB L100.2200 19-41 % Low LY% 5.2 LAB L100.2300 0-10 % Normal MONO% 6.8 LAB L100.2400 0-5 % Normal EO% 0.2 LAB L100.2500 0-1 % Normal BASO% 0.1 LAB L100.2550 0.0-0.9 % Normal IM GRAN % 0.200 Result Comment: IG% - Immature Granulocytes (promyelocytes, myelocytes and metamyelocytes) > 1% indicates that a LEFT SHIFT is Present. LAB L100.2620 2.0-7.7 X10 3/uL High Absolute Neut 14.7 LAB L100.2720 0.83-4.51 X10 3/ul Normal Absolute Lymph 0.88 Performed By: #### L100.0100 #### [facility] [address] [place], [address] BASIC METABOLIC Collected: 12/21/2017 Status: F Source: [place] PROFILE ([facility]) 11:45 PM [facility] REPOSITORY TYPE CODE TESTS RESULT OUT OF RANGE REFERENCE UNITS LAB L501.0100 74-106 mg/dL High GLU 118 Result Comment: Fasting Glucose result from 100 to 125 mg/dL suggests IMPAIRED HOMEOSTASIS per A.D.A. criteria. Please note revised GLUCOSE reference range effective 2017. LAB L501.1000 7-18 mg/dL Normal BUN 10 LAB L501.1100 0.70-1.30 mg/dL Normal CREAT,SERUM 1.07 Result Comment: The validity of the calculated GFR AND GFRAA in patients over 70 years has not been determined. Clinical correlation is essential. LAB L501.1110 >60 mL/min Normal EST GFR 72 Result Comment: Non- GFR Calc LAB L501.1115 >60 mL/min Normal EST GFR - AA 87 Result Comment: GFR Calc LAB L501.1255 ml/min Normal Estimated CRCL 62.40 LAB L501.1300 10-20 RATIO Low BUN/CRE 9.3 LAB L501.2200 8.5-10 mg/dL Low .1 CA 8.1 LAB L501.5300 136-14 mmol/L Normal 5 NA 138 LAB L501.5600 3.5-5. mmol/L Low 1 K 3.4 LAB L501.5900 98-107 mmol/L Normal CL 103 LAB L501.6100 21.0-3 mmol/L Normal 2.0 CO2 26.0 LAB L501.6200 5-15 Normal GAP 9 Performed By: #### L500.2500, L501.4010 #### [facility] [address] [facility]. [place], [place], [address] TROPONIN-I Collected: 12/21/2017 Status: F Source: [place] 11:45 PM [facility] REPOSITORY TYPE CODE TESTS RESULT OUT OF RANGE REFERENCE UNITS LAB L501.4010 <0.045 ng/mL High 0.052 TROPONIN-I Result Comment: TROPONIN-I EXPECTED VALUES <0.045 Negative 0.045 - 0.590 Consistent with Cardiac Damage > OR = 0.600 Critical Value Not every elevated troponin is indicative of FL. These values should be used with clinical judgement in examining the patient's clinical picture for diagnosis. To establish a diagnosis of FL versus myocardial injury, there must be a demonstrated rise and/or fall in the troponin values, in addition to ischemic symptoms, EKG changes, new regional wall motion abnormality, and/or angiographical evidence. PLEASE NOTE: REFERENCE RANGES EDITED 17 Performed By: #### L500.2500, L501.4010 #### [facility] [address] [place], [address] LACTIC ACID Collected: 12/21/2017 Status: F Source: [place] 11:45 PM [facility] REPOSITORY Order Comment: Yes/No query for Sepsis Lactate Rule Y TYPE CODE TESTS RESULT OUT OF RANGE REFERENCE UNITS LAB L503.6005 0.4-2.0 mmol/L Normal LACTIC ACID 1.2 Performed By: #### L503.6005 #### [facility] [address] [place], [address] DIGOXIN LEVEL Collected: 12/21/2017 Status: F Source: [place] 11:45 PM [facility] REPOSITORY TYPE CODE TESTS RESULT OUT OF RANGE REFERENCE UNITS LAB L501.7510 0.80-2.00 ng/mL Normal DIG 1.26 Performed By: #### L501.7510 #### [facility] [address] [place], [address] URINALYSIS, COMPLETE Collected: 12/21/2017 Status: F Source: [place] 11:25 PM [facility] REPOSITORY Order Comment: How was Urine Obtained? CLEAN CATCH TYPE CODE TESTS RESULT OUT OF RANGE REFERENCE UNITS LAB L400.3000 Yellow COLOR Normal Yellow LAB L400.3050 Clear Normal CLARITY Clear LAB L400.3200 Normal mg/dl Normal GLUCOSE, UR Normal LAB L400.3300 Negative mg/dL Normal BILIRUBIN URINE Negative LAB L400.3400 Negative mg/dl Normal KETONE UR Negative LAB L400.3465 1.002-1.030 Normal SP.GR. DIPSTX 1.010 LAB L400.3550 5.0 - 8.0 pH UR Normal 6.5 LAB L400.3600 Negative mg/dl High PROT 15 DIPSTX LAB L400.3700 Normal mg/dl High 1 UROBILI LAB L400.3750 Negative Normal NITRITE UR Negative LAB L400.3780 Negative /ul High 10 OCCULT BLOOD-UR LAB L400.3800 Negative /ul LEUK Normal ESTERASE Negative LAB L400.4050 0-5 /hpf WBC 0 Normal SEEN LAB L400.4100 0-5 /hpf 0 Normal RBC-UA SEEN LAB L400.4150 0-5 /hpf SQUAM Normal EPI 0-5 SEEN LAB L400.4300 None Seen /hpf 0 Normal BACTERIA SEEN LAB L400.4350 <or=2+ /hpf 0 Normal MUCUS, URINE SEEN Performed By: #### L400.0001 #### [facility] [address] [place], [address] TIBIA AND FIBULA Observed: 12/21/2017 Status: F Source: IVIS 2 VIEWS 11:19 PM [facility] REPOSITORY [facility] Imaging Services [address] [place] [address] Tibia AND Fibula 2 Views MR#: [id number] Acct: [id number] Name: JV DURHAM Jr. Rep #: [id number] : 1945 M 72 From: Gaurav Douglas MD PCP: Fany Hobson DO Status: REG ER Study: Tibia AND Fibula 2 Views Date of Exam: 12/21/17 Exam# [id number] Ordering Dr: Peace Gallardo MD STUDY: X-RAY - LEFT TIBIA AND FIBULA REASON FOR EXAM: Male, 72 years old. Redness of the left lower extremity, with swelling and pain. Patient reports hitting the lower extremity. Generalized weakness, fatigue, and increasing shortness of breath for the [...] Service support , CC: Peace Gallardo MD; Fany Hobson DO Member Of [employer] Legislative [employer]: Signed CHEST 1 VIEW Observed: 12/21/2017 Status: F Source: IVIS (PORTABLE) 11:18 PM [facility] REPOSITORY [facility] Imaging Services [address] [place] [address] Chest 1 View (Portable) MR#: [id number] Acct: [id number] Name: JV DURHAM Merary Greer Rep #: [id number] : 1945 M 72 From: Chava Latham MD PCP: Fany Hobson DO Status: REG ER Study: Chest 1 View (Portable) Date of Exam: 12/21/17 Exam# [id number] Ordering Dr: Peace Gallardo MD STUDY: X-RAY CHEST REASON FOR EXAM: [...] IMPRESSION: No acute pulmonary findings. Electronically Signed: Chava Latham MD at 0:05 EDT Tel , Service support , CC: Peace Gallardo MD; Fany Hobson DO Member Of The Legislative Assembly: Signed CHEST PA AND LATERAL Observed: 12/19/2017 Status: F Source: IVIS 3:10 PM [facility] REPOSITORY [facility] Imaging Services [address] [place] [address] Chest PA and Lateral MR#: [id number] Acct: [id number] Name: JV DURHAM Jr. Rep #: [id number] : 1945 M 72 From: Jaime Milligan MD PCP: Fany Hobson DO Status: REG CLI Study: Chest PA and Lateral Date of Exam: 12/19/17 Exam# [id number] Ordering Dr: Jv Salazar MD STUDY: X-RAY CHEST REASON FOR EXAM: Male, 72 years old. LUNG NODULE. HX CA TECHNIQUE: Frontal and lateral views of the chest. COMPARISON: 10.06.17. FINDINGS: Chronic appearing increased interstitial lung markings. There are multiple median sternotomy wires. There is evidence for partial pneumonectomy of the left upper lobe. There is no demonstrated pleural abnormality. There is a right Port-A-Cath and/or mediport in [...] and Lateral IMPRESSION: There are no acute findings. There is evidence for partial pneumonectomy of the left upper lobe. Electronically Signed: Jaime Milligan MD at 16:56 EDT , Service support , CC: Fany Hobson DO; Jv Salazar MD Member Of The Legislative Assembly: Signed CARDIOLOGY VISIT Observed: 12/06/2017 Status: F Source: [place] REPORT 2:24 PM [facility] REPOSITORY [facility] [address] [place] [address]. [address] [place] [address] OFFICE VISIT Date of Service: 10/24/17 MR#: [id number] Acct: [id number] Name: JV DURHAM Jr. Rep #: [id number] : 1945 Provider: Michoacano Germain MD Age/Sex: 72/M Location: [facility] Status: Signed HPI HPI Details: JV DURHAM, is a 72 M who presents to the office today for Intake Vital Signs10/24/17 Height 5 ft 10 in 10/24/17 Weight: 277 lb Intake Visit Reasons: 1 M FU Allergies No Known Allergies Allergy (Verified 10/23/17 10:35) Medications Fenofibrate [Tricor] 145 mg PO DAILY 05/06/13 [History Confirmed 10/24/17] Folic Acid 1 mg PO DAILY@0800 05/06/13 [History Confirmed 10/24/17] Tiotropium [place] [Spiriva 18 MCG] 1 puff INHALATION DAILY [...] mg PO QDAY 10/06/17 [History Confirmed 10/24/17] cyanocobalamin (vit B-12) 1,000 mcg [...] hypertension (Chronic) Atherosclerosis of coronary artery of alturas heart without angina pectoris (Chronic) Primary malignant [...] (Chronic 12/04/16) History of coronary artery stent placement (Chronic [...] exercise seatbelt use: always ROS Const Const: Negative for fatigue, weakness, difficulty sleeping, frequent [...] for hematuria Musc Musc: Positive for joint pain; negative for muscle aches/ myalgia, muscle weakness or balance problems Skin Skin: Negative non-healing lesions, unusual bruising or rash Neuro Neuro: Positive for orthostatic symptoms (Occasional); negative for weakness, frequent falls, blurry vision, headache(s), dizziness, lightheadedness or double vision Chivo Hematologic/Lymphatic: Negative for easy bruising Endo Endo: Negative for fatigue, excessive sweating or increased thirst/drinking Psych Psych: Negative for anxiety or depression Allergy Allergy/Immunology: Negative for hives, Negative for rash Assessment AND Plan Orders Orders: Plan Detail Follow Up +6M (Jose) Coding Level of Care Code Off vis,est,level 3 Coding Level of Care Code Off vis,est,level 3 12/06/17 1424 <Electronically signed by Michoacano Germain MD> Date Michoacano Germain MD Cosign Signature: Date (if applicable) CC: Fany Hobson DO STRESS TEST ECHO W/O Observed: 12/04/2017 Status: F Source: [place] 4:53 PM [facility] REPOSITORY [facility] Cardiovascular Services [address] [place] [id number] Stress Test Echo w/o Contrast MR#: [id number] Acct: [id number] Name: MARVAJV Jr. Rep #: [id number] : 1945 72 From: Michoacano Germain MD Primary Care: Fany Hobson DO Status: REG CLI Ordering Dr: Michoacano Germain MD Sex: M C Reason For Study: CAD, S/P CABG Stress Results Protocol: Dobutamine Stress Echo Maximum Predicted HR: 148 bpm Target HR: 126 bpm% Maximum Pre dicted HR: 85 % DurationHeart Rate Stage (mm:ss) (bpm) BPCom ment Baseline 77 151/75 No Chest Pain DSE 10 MCG 3:00 75 158/85No Chest Pain DSE 20 MCG 3:00 10 8 153/86No Chest Pain DSE 30 MCG 3:00 12 5 138/72No Chest Pain DSE 40 MCG 2:55 12 6 123/55No Chest Pain Recovery 97 119/73 No Chest Pain Stress Duration: 11:55 mm:ss Maximum Stress HR: 126 bpmME [...] %. Normal, adequate, dobutamine echocardiogram. Negative for ischemia by EKG and echocardiographic criteria. No anginal symptoms noted. Appropriate blood pressure response to dobutamine. The patient developed frequent PVCs, ventricular couplets, and ventricular triplets as well as A. fib with aberrancy at peak infusion, which is a non-specific finding with dobutamine. No sustained ventricular arrhythmias noted. Final LVEF of 75%. Decreased sensitivity due to poor echo windows. No complications. Ordering Physician: Michoacano Germain Referring Physician: Michoacano Germain Performed By: Vanda Christian, MENDEZ, RVT 12/04/17 1653 Date Michoacano Germain MD CC: Michoacano Germain MD; Fany Joce DRAPER Date Dictated: 12/04/17 1055 Date Transcribed: 12/04/17 165 Member Of The Legislative Assembly: Signed DOWNTIME REPORT Observed: 12/04/2017 Status: F Source: [place] 12:07 PM [facility] Medical Records Department [address] [place] [address] Downtime Report MR#: [id number] Acct: [id number] Name: JV DURHAM Jr. Rep #: [id number] : 1945 72 From: Morgan Ro PCP: Fany Hobson DO Status: REG CLI This patient was seen during an EMR downtime November 17, 2017 - November 24, 2017. This patient may have a combination of paper and electronic documentation or all paper documentation. All documentation is viewable within the e-chart portion of [employer] for each patient visit. CAROTID DUPLEX Observed: 11/26/2017 Status: F Source: [place] ULTRASOUND 12:08 PM [facility] Cardiovascular Services [address] [place] [address] Carotid Duplex Ultrasound 11/24/17 1244 MR#: [id number] Acct: [id number] Name: JV DURHAM Jr. Rep #: [id number] : 1945 72 From: Jamie Cheung MD Attending Dr: Fany Hobson DO Status: REG CLI Ordering Dr: Michoacano Germain MD Date: 11/24/17 Location: CVS Sex: M C Admitted: Reason For Study: [...] the left vertebral artery. Procedure Carotid Duplex 83962. Exam performed in department. Interpretation Summary Mild (<50%) stenosis right extracranial internal carotid. Mild (<50%) stenosis left extracranial internal carotid. Flow within the vertebral arteries is antegrade bilaterally. Ordering Physician: Michoacano Germain Referring Physician: Fany Hobson Performed By: Sumi Morris, RDCS, RVT 11/26/17 1208 Date Jamie Cheung MD CC: Michoacano Germain MD; Fany Hobson DO Date Dictated: 11/24/17 1244 Date Transcribed: 11/26/17 1208 Member Of The Legislative Assembly: Signed CARDIOLOGY VISIT Observed: 10/24/2017 Status: F Source: [place] REPORT 1:50 PM [facility] REPOSITORY [facility] [address] [place] [address] OFFICE VISIT Date of Service: 10/24/17 MR#: [id number] Acct: [id number] Name: JV DURHAM Jr. Rep #: [id number] : 1945 Provider: Michoacano Germain MD Age/Sex: 72/M Location: [facility] Status: Signed HPI HPI Chief Complaint: Routine f/u Details: Details: This is 72-year-old male who presents [...] RVSP of 60 mmHg., Moderate pulmonary hypertension. May 2013 patient had right common iliac stent placement and left common iliac stent placement at [facility]. Heart cath from April 2013 showed [...] but no CPAP machine. We attempted DC cardioversion in the past, but unfortunately this was unsuccessful. Patient now returns for routine follow-up. The patient has had several mechanical falls but no syncope. When the patient walks with a cane he has a tendency to [...] surgeon was unable to assess his lymph nodes, and was done for precautionary reasons. He [...] at this time. 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 He went to [facility] ER where his hemoglobin was found to be 5. He was transferred [facility] where he was transfused 4 units of PRBCs, and EGD showed 2 small AVMs with small fresh blood clots in the distal antrum. He was taken off his Eliquis and baby aspirin. About 2 weeks ago his Xarelto was restarted at half dose, and recently increased to full dose. He is still off his baby aspirin. His melena has completely resolved. Feels much better, and his color is back. He has had no further bleeding. He requires no further chemotherapy. He does however still [...] 145 mg PO DAILY 05/06/13 [History Confirmed 10/24/17] Folic Acid 1 mg PO DAILY@0800 05/06/13 [History Confirmed 10/24/17] Tiotropium [place] [Spiriva 18 MCG] 1 puff INHALATION DAILY [...] mg PO QDAY 10/06/17 [History Confirmed 10/24/17] cyanocobalamin (vit B-12) 1,000 mcg [...] hypertension (Chronic) Atherosclerosis of coronary artery of alturas heart without angina pectoris (Chronic) Primary malignant [...] (Chronic 12/04/16) History of coronary artery stent placement (Chronic [...] seatbelt use: always Cardiology Exam Const Appearance: cooperative, healthy appearing [...] carotid upstroke and bruit Right Chest Chest inspection: normal inspection of the [...] Plan 1. Atherosclerosis of coronary artery of alturas heart without angina pectoris I25.10 CABG x 2 HERRERA-LAD, SVG-OM 02/14/2006 WIL-BXP-ZKTY anastomosis-LAD w/ Taxus 2.75 x 8 mm and POBA- PDA 12/23/2006 Plan 1. Coronary artery disease: No anginal symptoms at this time. We are awaiting repeat hemoglobin. Blood pressure is much better, and he is asymptomatic. I recommend that we resume his baby aspirin in 3 days time giving his AVMs a month to heal. He has tolerated full dose Xarelto for some time without any further melena. I recommended he undergo a dobutamine echocardiogram in 4 weeks time once we have confirmed that his hemoglobin has remained stable. If this is grossly abnormal for ischemia he may require diagnostic coronary angiogram prior to his knee surgery. If it is negative for inducible ischemia he will be deemed at low risk for noncardiac surgery. In the meantime he will continue his Lasix, valsartan and metoprolol. Orders Orders: 2. Chronic atrial fibrillation I48.2 Plan 2. Atrial fibrillation: The patient has permanent atrial fibrillation requires lifelong anticoagulation therapy. Since his EGD 1 month ago he has had no further melena. He is back on full dose Xarelto. Continue Xarelto therapy. Continue Lopressor for heart rate control. 3. Right carotid bruit: Recommend ordering a bilateral carotid ultrasound given his known severe peripheral vascular disease. Continue baby aspirin. 4. Hyperlipidemia: His LDL and HDL cholesterol are fairly well-controlled as of July 2017. Continue Pravachol. 5. Return office in 6 months. This note was generated using a voice recognition system and there may be incorrect words, spelling or punctuation that were not noted when reviewing the office note prior to saving. Orders Orders: Plan Detail Other Orders Orders: Follow Up +6M (Jose) Coding Level of Care Code Off vis,est,level 3 Diagnoses Atherosclerosis of coronary artery of alturas heart without angina pectoris I25.10 Chronic atrial fibrillation I48.2 Coding Level of Care Code Off vis,est,level 3 Diagnoses Atherosclerosis of coronary artery of alturas heart without angina pectoris I25.10 Chronic atrial fibrillation I48.2 10/24/17 1350 <Electronically signed by Michoacano Germain MD> Date Michoacano Germain MD Cosigner Signature: Date (if applicable) CC: ONCOLOGY VISIT REPORT Observed: 10/23/2017 Status: F Source: [place] 2:53 PM [facility] REPOSITORY [facility] [place] [address] OFFICE VISIT Date of Service: 10/23/17 1043 MR#: [id number] Acct: [id number] Name: JV DURHAM Jr. Rep #: [id number] : 1945 From: Salina MONIQUE Age/Sex: 72/M Location: [facility] Status: Signed Subjective - Date of Service Date of Service:: 10/23/17 - Chief Complaint Survivorship Care Planning - History of Present Illness Patient [...] tomorrow with cardiology and anticipates they will discuss stress test as that was planned prior to his diagnosis in May. - Past Medical/Social History Past Medical History Past Medical History: Anemia,Blood transfusion,COPD,Hyperlipidemia, Hypertension,Sleep apnea Cancer: Lung cancer Social History Social History: No changes Smoking Status Former smoker Review of Systems Constitutional:: Reports: Weakness, Fatigue - improving. Denies: Fever, Sweats, Weight loss, Appetite change, Chills Cardiovascular:: Reports: Dyspnea on exertion - on 2 L O2 per nc. Denies: Chest pain, Palpitations, Orthopnea, PND Respiratory: Denies: Cough, Hemoptysis, Shortness of Breath, Wheezing Gastrointestinal:: Denies: Abdominal pain, Nausea, Vomiting, Diarrhea, Constipation, Hematochezia Genitourinary: Reports: Urinary frequency. Denies: Dysuria, Hematuria, Flank pain Skin: Denies: Rash, Skin Changes, Wounds Neurological:: [...] glands) planned for beginning of January 2018. Reviewed treatment summary and survivorship care plan documentation. Copies of which will be provided to the patient and all members of his health care team. Engaged in lengthy conversation regarding potential senior living/late side effects associated with chemotherapy exposure, recommendations for follow up and signs/symptoms of concern that should be report in between visits. Stressed importance of continued focus on adequate nutrition and fluid intake and daily exercise and abstinence from tobacco products. Psychosocial AND spiritual health- He is well supported by spouse of 50 years and describes a good support system by way of children and grandchildren. Continues to adjust to life as a cancer survivor. We discussed coping strategies and potential resources. 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 [address] End of Treatment Summary Date of Service: 10/16/17 1035 MR#: [id number] Acct: [id number] Name: VJ DURHAM Jr. Rep #: [id number] : 1945 From: Salina MONIQUE Age/Sex: 72/M Location: [facility] Status: Signed General Information Primary Care Provider:: Fany Hobson Surgeon Name: Landon Agee - Thoracic surgeon, [facility] Oncologist:: Marybeth Millan Other Providers:: Dr. Michoacano Germain. Dr. Davis. Dr. Salazar Treatment Summary Problem List: All Active Problems (Last Reviewed 10/23/17 @ 10:35 by Dagmar Strickland) GI bleed (Acute) Left VATS procedure with wedge resection KATIE (Acute) port placement (Acute) Educational circumstance (Acute) Cancer of upper lobe of left lung (Acute) Antineoplastic chemotherapy induced anemia (Acute) Constipation (Acute) Primary [...] Surgery:: Yes Surgery Date[s] [year]:: 05/16/2017 Surgical Procedure / Location / Findings:: Left VATS procedure with left upper lobe wedge resection. Tumor measured 1.8 cm, tumor grade 3, unifocal, resection margin 0.2 cm, + visceral pleural invasion. Negative for lymphovascular invasion, No LN dissected d/t limited lung reserve. EGFR, ALK negative. Radiation:: No Systemic Therapy [chemotherapy, hormonal therapy, other]:: Yes Name of Agents Used and End Date of Usage:: Carboplatin/Alimta x 4 cycles 07/09/17-09/17/2017 Persistent symptoms of side effects at completion of treatment:: Yes If yes, enter type[s]:: Fatigue, taste disturbance, decreased visual acuity Follow-up Care Plan Need for ongoing [adjuvant] treatment for cancer:: No Schedule of Clinical Visits Coordination Provider:: Marybeth Millan When/How often:: 3-6 months x 2 years, then every 6 months x 3 years, then annually Cancer Surveillance/Other Test Coordination Provider:: Marybeth Millan - CT chest (frequency is determined further by findings) When/How often:: Every 3-6 months x 3 years, then every 6 months x 2 years, then annually Cancer Surveillance/Symptoms: Please continue to see your primary care provider for all general health care recommended for a M your age, including cancer screening tests. Any symptoms should be brought to the attention of your provider: * Anything that represents a brand new symptom * Anything that represents a persistent symptom * Anything you are worried about that might be related to the cancer coming back Cancer survivors may experience issues with the areas listed below:: Emotional and mental health, Physical functioning, Memory or concentration loss, Fatigue, Insurance, Parenting, Weight changes, School/Work, Financial Advice or Assistance, Sexual functioning Cancer Survivor Issues - Help: If you have any concerns in these or other areas, please speak with your doctors or nurses to find out how you can get help with them. Other comments:: Prepared by Giovanni Díaz, KHARI, DRYING SUPERVISOR-C, AOCNP. Delivered on 10/23/17 10/23/17 8515 <Electronically signed by Salina MONIQUE> Date Salina MONIQUE Cosigner Signature: Date (if applicable) CC: Michoacano Germain MD; Fany Hobson DO; Josiah Davis MD; Jv Salazar MD ONCOLOGY VISIT REPORT Observed: 10/15/2017 Status: F Source: [place] 11:39 AM [facility] REPOSITORY [facility] [place] [address] OFFICE VISIT Date of Service: 10/15/17 1046 MR#: [id number] Acct: [id number] Name: JV DURHAM Jr. Rep #: [id number] : 1945 From: Marybeth Millan MD Age/Sex: [...] - Interval History Hospitalized last week of September 2017 was acute upper GI bleed, transfused 4 units packed red cells and underwent EGD. Discharged on oral iron and an acid suppressant. Reports from [facility] requested. - Past Medical/Social History Past Medical History [...] Hemoptysis, Shortness of Breath, Wheezing Gastrointestinal:: Reports: Constipation - Worse since has been on oral [...] Port okay. Negative for: JVD, bilateral Cardiac:: Normal S1, Normal S2, Irregular rate. Negative for: Murmur Lungs: Clear to auscultation, Diminished, Excusion symmetrical. Negative for: Rhonchi, Wheezes Abdomen:: Soft, Non-tender, Non-distended. Negative for: Hepatosplenomegaly Extremities:: Edema - 1+ bilateral ankles edema. Negative for: Cyanosis Neurological: Neuro grossly intact Skin:: Ecchymosis. Negative for: Lesions, Rash, Petechiae Psychiatric:: Appropriate affect, Euthymic Lymphatics:: Negative for: Cervical lymphadenopathy, Supraclavicular lymphadenopathy, Axillary lymphadenopathy Laboratory Data: CBC, CMP and iron profile pending Assessment and Plan 72-year-old gentleman ex-smoker [...] On oral iron experiencing increasing constipation and discoloration of the stool that can mask recurrent GI bleed therefore will reassess iron status and if deficient will give IV iron rather than oral at least for the next 3 months. Patient has multiple chronic medical conditions including morbid obesity, severe oxygen dependent COPD, CAD, chronic atrial fibrillation, DJD, peripheral neuropathy (predates chemotherapy). Ipression and recommendation discussed with patient Medications: Prescriptions This Visit Medication Instructions Recorded Lidocaine/Prilocaine 30 gm TP DAILY PRN PRN #1 cream..g. 06/25/17 [Lidocaine-Prilocaine Cream] Primary Care Provider: Fany Hobson DO Referring Provider: Marybeth Millan MD 10/15/17 1139 <Electronically signed by Marybeth Millan MD> Date Marybeth Millan MD Cosigner Signature: Date (if applicable) CC: Fany Hobson DO IRON+IRON BINDING Collected: 10/15/2017 Status: F Source: [place] [place]ACITY 11:32 AM [facility] REPOSITORY Order Comment: Reason for Laboratory Test . TYPE CODE TESTS RESULT OUT OF RANGE REFERENCE UNITS LAB L503.6075 250-450 ug/dL TIBC Normal 361 LAB L503.6150 65-175 ug/dL IRON Normal 71 LAB L503.6250 15.0-55.0 % IRON Normal SATURATION 19.7 Performed By: #### L503.6030, L503.6550 #### [facility] [address] [place], [address] FERRITIN Collected: 10/15/2017 Status: F Source: [place] 11:32 AM [facility] REPOSITORY Order Comment: Reason for Laboratory Test . TYPE CODE TESTS RESULT OUT OF RANGE REFERENCE UNITS LAB L503.6550 26-388 ng/mL Normal FERRITIN 182 Performed By: #### L503.6030, L503.6550 #### [facility] [address] [place], [address] COMPREHENSIVE METABOLIC Collected: 10/15/2017 Status: F Source: [facility] 10:51 AM [facility] REPOSITORY Order Comment: Reason for Laboratory Test . TYPE CODE TESTS RESULT OUT OF RANGE REFERENCE UNITS LAB L501.0100 74-106 mg/dL Normal GLU 106 Result Comment: Fasting Glucose result from 100 to 125 mg/dL suggests IMPAIRED HOMEOSTASIS per A.D.A. criteria. Please note revised GLUCOSE reference range effective 2017. LAB L501.1000 7-18 mg/dL Normal BUN 10 LAB L501.1100 0.70-1.30 mg/dL Normal CREAT,SERUM 1.00 Result Comment: The validity of the calculated GFR AND GFRAA in patients over 70 years has not been determined. Clinical correlation is essential. LAB L501.1110 >60 mL/min Normal EST GFR 78 Result Comment: Non- GFR Calc LAB L501.1115 >60 mL/min Normal EST GFR - AA 94 Result Comment: GFR Calc LAB L501.1255 ml/min Normal Estimated CRCL 68.94 LAB L501.1300 10-20 RATIO Normal BUN/CRE 10.0 LAB L501.1500 6.4-8. g/dL Normal 2 T PROT 6.4 LAB L501.1800 3.2-5. g/dL Normal 0 ALB 3.2 LAB L501.1950 2.2-4. g/dL Normal 2 GLOB 3.2 LAB L501.2000 0.9-2. RATIO Normal 4 A/G 1.0 LAB L501.2200 8.5-10 mg/dL Normal .1 CA 8.9 LAB L501.4100 15-37 U/L Normal AST 22 LAB L501.4305 45-117 U/L Normal ALK P 89 LAB L501.4405 16-61 U/L Normal ALT 18 LAB L501.4600 0.20-1 mg/dL Normal .00 T BILI 0.70 LAB L501.5300 136-14 mmol/L Normal 5 NA 142 LAB L501.5600 3.5-5. mmol/L Normal 1 K 3.8 LAB L501.5900 98-107 mmol/L Normal CL 105 LAB L501.6100 21.0-3 mmol/L Normal 2.0 CO2 32.0 LAB L501.6200 5-15 Normal GAP 5 Performed By: #### L500.4050 #### [facility] [address] [place], [place], [address] CBC W/DIFF, AUTOMATED Collected: 10/15/2017 Status: F Source: [place] 10:51 AM [facility] REPOSITORY Order Comment: Reason for Laboratory Test . TYPE CODE TESTS RESULT OUT OF RANGE REFERENCE UNITS LAB L100.1000 4.4-11.0 K/mm3 Normal WBC 11.0 LAB L100.1200 4.6-6.2 M/mm3 Low RBC 3.10 LAB L100.1300 13.0-16.5 g/dl Low HGB 9.1 LAB L100.1400 40-54 % Low HCT 30.1 LAB L100.1500 80-94 fL High MCV 97.1 LAB L100.1600 27.0-32.0 pg Normal MCH 29.4 LAB L100.1700 32-36 g/gl Low MCHC 30.2 LAB L100.1810 11.6-14.6 % High RDW CV 21.4 LAB L100.1820 35.1-43.9 fl High RDW SD 74.5 LAB L100.1900 150-450 K/mm3 Normal PLT 322 LAB L100.2000 6.2-12.0 fl Normal MPV 9.6 LAB L100.2100 47-70 % High NEUT% 76.2 LAB L100.2200 19-41 % Low LY% 8.4 LAB L100.2300 0-10 % High MONO% 12.8 LAB L100.2400 0-5 % Normal EO% 1.2 LAB L100.2500 0-1 % Normal BASO% 0.5 LAB L100.2550 0.0-0.9 % Normal IM GRAN % 0.900 Result Comment: IG% - Immature Granulocytes (promyelocytes, myelocytes and metamyelocytes) > 1% indicates that a LEFT SHIFT is Present. LAB L100.2620 2.0-7.7 X10 3/uL High Absolute Neut 8.4 LAB L100.2720 0.83-4.51 X10 3/ul Normal Absolute Lymph 0.92 LAB L100.7300 ANISO Normal 2+ Performed By: #### L100.0100 #### [facility] [address] [place], [address] COMPREHENSIVE METABOLIC Collected: 10/06/2017 Status: F Source: [facility] 4:01 PM [facility] REPOSITORY TYPE CODE TESTS RESULT OUT OF RANGE REFERENCE UNITS LAB L501.0100 74-106 mg/dL Normal GLU 93 Result Comment: Please note revised GLUCOSE reference range effective 2017. LAB L501.1000 7-18 mg/dL Low BUN 5 LAB L501.1100 0.70-1.30 mg/dL Normal CREAT,SERUM 0.83 Result Comment: The validity of the calculated GFR AND GFRAA in patients over 70 years has not been determined. Clinical correlation is essential. LAB L501.1110 >60 mL/min Normal EST GFR 97 Result Comment: Non- GFR Calc LAB L501.1115 >60 mL/min Normal EST GFR - AA 117 Result Comment: GFR Calc LAB L501.1300 10-20 RATIO Low BUN/CRE 6.0 LAB L501.1500 6.4-8.2 g/dL Low T PROT 6.1 LAB L501.1800 3.2-5.0 g/dL Low ALB 2.8 LAB L501.1950 2.2-4.2 g/dL Normal GLOB 3.3 LAB L501.2000 0.9-2.4 RATIO Low A/G 0.8 LAB L501.2200 8.5-10.1 mg/dL Normal CA 8.5 LAB L501.4100 15-37 U/L Normal AST 24 LAB L501.4305 45-117 U/L Normal ALK P 105 LAB L501.4405 16-61 U/L Normal ALT 22 LAB L501.4600 0.20-1.00 mg/dL Normal T BILI 0.60 LAB L501.5300 136-145 mmol/L Normal NA 141 LAB L501.5600 3.5-5.1 mmol/L Normal K 4.0 LAB L501.5900 98-107 mmol/L Normal CL 105 LAB L501.6100 21.0-32.0 mmol/L Normal CO2 31.0 LAB L501.6200 5-15 Normal GAP 5 Performed By: #### L500.4050 #### [facility] [address] [place], [address] CBC W/DIFF, AUTOMATED Collected: 10/06/2017 Status: C Source: [place] 4:01 PM [facility] REPOSITORY TYPE CODE TESTS RESULT OUT OF REFERENCE UNITS RANGE LAB L100.1000 4.4-11.0 K/mm3 WBC Normal 10.6 LAB L100.1200 4.6-6.2 M/mm3 Low RBC 3.03 LAB L100.1300 13.0-16.5 g/dl Low HGB 9.2 LAB L100.1400 40-54 % Low HCT 30.1 LAB L100.1500 80-94 fL MCV High 99.3 LAB L100.1600 27.0-32.0 pg MCH Normal 30.4 LAB L100.1700 32-36 g/gl Low MCHC 30.6 LAB L100.1810 11.6-14.6 % RDW CV High 20.7 LAB L100.1820 35.1-43.9 fl RDW SD High 69.7 LAB L100.1900 150-450 K/mm3 PLT Normal 292 LAB L100.2000 6.2-12.0 fl MPV Normal 10.4 LAB L100.3100 MANUAL DIFF CELLS COUNTED Normal 100 LAB L100.3200 47-70 % SEGS Normal 65 LAB L100.3300 0-5 % BAND High 8 LAB L100.3400 0-1 % META High 3 LAB L100.3500 0-0 MYELO High 4 LAB L100.3800 19-41 % Low LYMPH 7 LAB L100.3900 0-10 % MONOCYTE Normal 8 LAB L100.4000 0-5 % EOS Normal 5 LAB L100.2620 2.0-7.7 X10 3/uL Absolute Neut Normal 7.7 LAB L100.2720 0.83-4.51 X10 3/ul Low Absolute Lymph 0.74 LAB L100.4800 TOXIC GRAN Normal RARE LAB L100.5500 ADEQ PLT EST Normal ADEQUATE LAB L100.7300 ANISO Normal RARE LAB L100.7600 HYPOCHROMASIA Normal RARE LAB L100.7800 MACROCYTE Normal RARE LAB L100.8200 OVALOCYTE Normal RARE LAB L100.9900 PATH REV Normal Reviewed Result Comment: Macrocytic anemia. Clinical correlation suggested. Kel Morales D.O. 10/08/17 AMENDED REPORT 10/08/17 0928 PATH REV previously reported as: October kristopher Performed By: #### L100.0100 #### [facility] [address] [place], [place], [address] URINALYSIS, ROUTINE Collected: 10/06/2017 Status: F Source: [place] ([place]) 4:01 PM [facility] REPOSITORY Order Comment: How was Urine Obtained? CLEAN CATCH TYPE CODE TESTS RESULT OUT OF RANGE REFERENCE UNITS LAB L400.3000 Yellow COLOR Normal Yellow LAB L400.3050 Clear Normal CLARITY Sl. Cloudy LAB L400.3200 Normal mg/dl Normal GLUCOSE, UR Normal LAB L400.3300 Negative mg/dL Normal BILIRUBIN URINE Negative LAB L400.3400 Negative mg/dl Normal KETONE UR Negative LAB L400.3465 1.002-1.030 Normal SP.GR. DIPSTX 1.010 LAB L400.3550 5.0 - 8.0 pH UR Normal 8.0 LAB L400.3600 Negative mg/dl PROT Normal DIPSTX Negative LAB L400.3700 Normal mg/dl High 1 UROBILI LAB L400.3750 Negative Normal NITRITE UR Negative LAB L400.3780 Negative /ul Normal OCCULT BLOOD-UR Negative LAB L400.3800 Negative /ul LEUK Normal ESTERASE Negative Performed By: #### L400.2010 #### [facility] [address] [place], [place], [address] CHEST PA AND LATERAL Observed: 10/06/2017 Status: F Source: [place] 3:59 PM [facility] REPOSITORY [facility] Imaging Services [address] [place] [id number] Chest PA and Lateral MR#: [id number] Acct: [id number] Name: JV DURHAM Jr. Rep #: [id number] : 1945 M 72 From: Kee Burkett MD PCP: Fany Hobson DO Status: REG CLI Study: Chest PA and Lateral Date of Exam: 10/06/17 Exam# [id number] Ordering Dr: Fany Hobson DO STUDY: X-RAY CHEST REASON FOR EXAM: Male, [...] and yovanny. Normal visualized pulmonary arteries. There are calcified plaques of the thoracic aorta. Normal visualized thoracic spine. Normal visualized ribs, clavicles, and shoulders. There is no demonstrated abnormality of the visualized soft tissue structures of the upper abdomen. RAD/Chest PA and Lateral IMPRESSION: 1. Right-sided Mediport with catheter tip in the region of the mid SVC. 2. Status post surgical changes of the left upper lobe. Left apical pleural thickening. 3. Hemidiaphragmatic flattening which may be associated with COPD. 4. Mild cardiomegaly. Status post sternotomy. 5. Calcified plaques of the thoracic aorta. 6. Findings are similar to the previous study. Electronically Signed: Kee Burkett MD at 16:18 EDT , Service support , CC: Fany Hobson DO Member Of The Legislative Assembly: Signed 12 LEAD ELECTROCARDIOGRAM Observed: 10/05/2017 Status: F Source: [place] 8:56 PM [facility] REPOSITORY [facility] Cardiovascular [place] [address] 12 Lead EKG 09/29/17 1619 MR#: [id number] Acct: [id number] Name: JV DURHAM Jr. Rep #: [id number] : 1945 72 From: Michoacano Germain MD [...] 452 ms Atrial fibrillation Marked ST abnormality, possible inferior subendocardial injury Abnormal ECG Confirmed by MICHOACANO GERMAIN ([id number]), associate entertainment editor ALEXIS RO ([id number]) on 10/02/2017 2:39:03 PM Referred By: Fany Hobson Confirmed By:MICHOACANO GERMAIN 10/02/17 1439 Date Michoacano Germain MD CC: Fany Hobson DO; Alma Delia Zavala DO Signed [facility] Observed: 10/02/2017 Status: COMPLETED Source: [place] 7:18 PM CLINIC OTHER CAMPUS REPOSITORY HNO ID: [id number] Author: Maggie MontesinosRn) FLORIDA Schulte Service: Home Care Services Author Type: Registered Nurse Type: Allied Health Filed: 10/03/2017 10:47 AM Note Text: WARP PICKER NOTE SERVICE DATE: 10/03/2017 SERVICE TIME: 10:46 AM Discharge: Aware of Discharge home 10/02/17 Physician order placed for Home Care Services Home Care Agency: [facility] Start of care date: 10/04 or 10/05/17 Patient/Family agree to discharge plan: yes SIGNATURE: Maggie Schulte RN PATIENT NAME: Jv Durham JrAxel DATE: October 03, 2017 TIME: 10:46 AM PROGRESS Observed: 10/02/2017 Status: COMPLETED Source: [place] 3:50 PM CLINIC OTHER CAMPUS REPOSITORY O ID: [id number] Author: Akil Fitzgerald Service: Hospital Medicine Author Type: Physician Type: Progress Notes Filed: 10/02/2017 4:31 PM Note Text: INTERNAL MEDICINE PROGRESS NOTE SERVICE DATE: 10/02/2017 SERVICE TIME: 1550 Subjective Pt doing okay On base O2 3l Had cp earlier today, none now. Eating okay. No nv. Current Facility-Administered Medications: acetaminophen 650 mg tab(s) (TYLENOL) 650 mg ORAL q 6 H PRN ondansetron (PF) 4 mg injection (ZOFRAN) 4 mg INTRAVENOUS q 6 H PRN sodium chloride 0.65 % 1 [place] (AYR, OCEAN) 1 [place] EACH NOSTRIL QID sodium chloride-aloe vera topical nasal gel (AYR GEL w/ALOE) INTRANASAL QID gabapentin 1,200 mg cap(s) (NEURONTIN) 1,200 mg ORAL DAILY valsartan 40 mg tab(s) (DIOVAN) 40 mg ORAL DAILY pramipexole 0.5 mg tab(s) (MIRAPEX) 0.5 mg ORAL TID metoprolol tartrate (short acting) 25 mg tab(s) (LOPRESSOR) 25 mg ORAL q 12 H furosemide 40 mg tab(s) (LASIX) 40 mg ORAL DAILY DULoxetine 60 mg cap(s) (CYMBALTA) 60 mg ORAL DAILY pantoprazole DR 40 mg tab(s) (PROTONIX) 40 mg ORAL BID AC (0600/1600) digoxin 0.25 mg tab(s) (LANOXIN) 0.25 mg ORAL DAILY 0.9% NaCl 3-5 mL 3-5 mL INTRAVENOUS q 12 H atorvastatin 10 mg tab(s) (LIPITOR) 10 mg ORAL AT BEDTIME fenofibrate 200 mg cap(s) (LOFIBRA) 200 mg ORAL DAILY WITH BREAKFAST Objective PHYSICAL EXAM: Patient Vitals for the past 24 hrs: BP Temp Temp src Pulse Resp SpO2 10/02/17 1326 130/56 36.9 ?C (98.4 ?F) Oral 88 18 100 % 10/02/17 0600 130/54 37 ?C (98.6 ?F) Oral 78 18 98 % 10/01/172137 137/57 - - 80 - - 10/01/175 103/52 37 ?C (98.6 ?F) Oral 79 18 98 % Body mass index is 42.57 kg/(m2). General: Awake and alert, in no distress, cooperative Neck: Supple without JVD or Lymphadenopathy Cardiac: RRR, S1S2 with no MGR Lungs: Clear to auscultation bilaterally Abdomen: Soft non-tender, non-distended, normal bowel sounds Extremities: No deformities, edema, clubbing or skin discoloration. DATA: Diagnostic tests reviewed for today's visit: Component Latest Ref Rng AND Units 10/02/2017 WBC 4.23 - 9.07 thou/cmm 9.53 (H) RBC 4.63 - 6.08 mil/cmm 2.79 (L) HGB 13.7 - 17.5 g/dL 8.5 (L) Hematocrit 40.1 - 51.0 % 26.6 (L) MCV 83.2 - 95.6 fl 95.3 MCH 25.7 - 32.2 pg 30.5 MCHC 32.3 - 36.5 % 32.0 (L) RDW 11.6 - 14.4 % 22.3 (H) RDW-SD 36.1 - 45.8 fl 65.0 (H) Platelet Count 141 - 365 thou/cmm 100 (L) MPV 8.7 - 12.0 fl 11.4 Nucleated RBC % 0.0 - 0.2 % 0.9 (H) Nucleated RBC Absolute 0.00 - 0.01 thou/cmm 0.09 (H) Nucleated RBCs /100 WBC 1.0 Lymphocyte % 12.0 Monocyte % 13.0 Eosinophil % 1.0 Basophil % 1.0 Metamyelocytes % 1.0 Myelocyte % 2.0 Immat Grans Abs Calc 0.29 Lymphocyte # 0.84 - 2.85 thou/cmm 1.14 Monocyte # 0.30 - 0.82 thou/cmm 1.24 (H) Eosinophil # 0.04 - 0.54 thou/cmm 0.10 Basophil # 0.01 - 0.08 thou/cmm 0.10 (H) Seg Neutrophil % 70.0 Seg. Neut. # 1.78 - 5.38 thou/cmm 6.67 (H) RBC Morphology Present Anisocytosis Marked Elliptocytosis Few Polychromasia Moderate Assessment/Plan Anemia: -likey 2/2 gi bleed, epistaxis, chemi -increase form 8.4 to 8.5. 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 Can cont asa -cont bb, arb Afib: Start xarelto -cont bb -cont digoxin PT rec home with PT. Plan for dc today. Akil Fitzgerald MD October 02, 2017 4:31 PM SIGNATURE: Akil Fitzgerald MD PATIENT NAME: Jv Durham Jr. DATE: October 02, 2017 TIME: 3:50 PM PAGER/CONTACT #: [phone] PROGRESS Observed: 10/02/2017 Status: COMPLETED Source: [place] 6:37 AM CLINIC OTHER CAMPUS REPOSITORY HNO ID: [id number] Author: Bonnie Falcon Service: Hematology Author Type: Physician Type: Progress Notes Filed: 10/02/2017 8:12 AM Note Text: JV DURHAM 72 year old HEMATOLOGY/MEDICAL ONCOLOGY CONSULTATION: Lung Cancer, GI Bleeding, Anticoagulation with Xarelto Plus Aspirin Subjective HPI: 72-year-old male, undergoing chemotherapy for recent diagnosis of lung cancer, on anticoagulation with Xarelto and aspirin, admitted with bright red blood per rectum ?3, associated with generalized fatigue, weakness, dyspnea on exertion. He has been transferred to [facility] for GI evaluation. In relation to his lung cancer, he is status post wedge resection of his left upper lobe in May 2017 at the [facility] [place]. He was found to have a T2a and NX M0 malignancy, because of significant scarring, appropriate and usual node sampling could not be performed. Because of this, he has proceeded with adjuvant chemotherapy, and by his description, this is likely carboplatin/Alimta therapy. In relation to his Xarelto, this apparently is being utilized secondary to diagnosis of chronic atrial fibrillation. He also utilizes aspirin, and has been having problems with significant epistaxis 4 weeks. Current Facility-Administered Medications: acetaminophen 650 mg tab(s) (TYLENOL) 650 mg ORAL q 6 H PRN Gloria (Terence) APRN. KiaPERFORMANCE IMPROVEMENT COORDINATOR 650 mg at 09/30/17 0338 ondansetron (PF) 4 mg injection (ZOFRAN) 4 mg INTRAVENOUS q 6 H PRN Gloria (Terence) APRN. KiaPERFORMANCE IMPROVEMENT COORDINATOR 4 mg at 09/30/17 0338 sodium chloride 0.65 % 1 [place] (AYR, OCEAN) 1 [place] EACH NOSTRIL QID Elroy Hough 1 [place] at 10/01/17 213 sodium chloride-aloe vera topical nasal gel (AYR GEL w/ALOE) INTRANASAL QID Elroy Hough 1 application at 10/01/17 213 gabapentin 1,200 mg cap(s) (NEURONTIN) 1,200 mg ORAL DAILY Judith Sara Qavi 1,200 mg at 10/01/17 1328 valsartan 40 mg tab(s) (DIOVAN) 40 mg ORAL DAILY Judith Sara Qavi 40 mg at 10/01/17 1331 pramipexole 0.5 mg tab(s) (MIRAPEX) 0.5 mg ORAL TID Judith Sara Qavi 0.5 mg at 10/01/17 213 metoprolol tartrate (short acting) 25 mg tab(s) (LOPRESSOR) 25 mg ORAL q 12 H Judith Sara Qavi 25 mg at 10/01/17 213 furosemide 40 mg tab(s) (LASIX) 40 mg ORAL DAILY Judith Sara Qavi 40 mg at 10/01/17 1328 DULoxetine 60 mg cap(s) (CYMBALTA) 60 mg ORAL DAILY Judith Sara Qavi 60 mg at 10/01/[address] 40 mg tab(s) (PROTONIX) 40 mg ORAL BID AC (0600/1600) Judith Sara Qavi 40 mg at 10/01/17 1702 digoxin 0.25 mg tab(s) (LANOXIN) 0.25 mg ORAL DAILY Judith Sara Qavi 0.25 mg at 10/01/17 1326 0.9% NaCl 3-5 mL 3-5 mL INTRAVENOUS q 12 H Judith Sara Qavi 5 mL at 10/01/17 2139 atorvastatin 10 mg tab(s) (LIPITOR) 10 mg ORAL AT BEDTIME Judith Sara Qavi 10 mg at 10/01/17 2138 fenofibrate 200 mg cap(s) (LOFIBRA) 200 mg ORAL DAILY WITH BREAKFAST Judith Sara Qavi 200 mg at 10/01/17 1327 Prescriptions Prior to Admission: cyanocobalamin, vitamin B-12, (B-12 COMPLIANCE) 1,000 mcg/mL kit Take 1,000 mcg by mouth once daily. Disp: Rfl: DIGOXIN, BULK, MISC 0.25 mg once daily. Disp: Rfl: docusate sodium (COLACE) 100 mg capsule Take 100 mg by mouth once daily. Disp: Rfl: DULoxetine (CYMBALTA) 60 mg capsule Take 60 mg by mouth once daily. Disp: Rfl: furosemide (LASIX) 40 mg tablet Take 40 mg by mouth once daily. Disp: Rfl: gabapentin (NEURONTIN) 600 mg tablet Take 1,200 mg by mouth once daily. Disp: Rfl: potassium chloride (KLOR-CON 10 ORAL) Take 20 mEq by mouth twice daily. Disp: Rfl: metoprolol tartrate, short acting, (LOPRESSOR) 100 mg tablet Take 25 mg by mouth once daily. Disp: Rfl: pramipexole (MIRAPEX) 0.5 mg tablet Take 0.5 mg by mouth three times daily. Disp: Rfl: pravastatin (PRAVACHOL) 40 mg tablet Take 40 mg by mouth once daily. Disp: Rfl: fenofibrate nanocrystallized (TRICOR) 145 mg tablet Take 145 mg by mouth once daily. Disp: Rfl: rivaroxaban (XARELTO) 20 mg tablet Take 20 mg by mouth daily with dinner. Disp: Rfl: tiotropium bromide (SPIRIVA RESPIMAT INHALATION) Inhale as instructed. Disp: Rfl: valsartan (DIOVAN) 40 mg tablet Take 40 mg by mouth once daily. Disp: Rfl: ASPIR-81 81 MG TAB Take one(1) tablet daily. Disp: Rfl: 0 09/29/2017 at Unknown time FOLIC ACID 1 MG TAB Take one(1) tablet daily. Disp: Rfl: 0 09/29/2017 at Unknown time Social History Marital status: Spouse name: Years of education: Number of children: Social History Main Topics Smoking status: Former Smoker Packs/day: 0.00 Years: 0.00 Smokeless status: Never Used Comment: Quit in 1992 Alcohol use: No Drug use: No FAMILY HISTORY Problem Relation Age of Onset - Cancer Brother - Cancer Maternal Grandfather - Heart Maternal Grandfather - Hypertension Mother - Hypertension Father - Stroke Paternal Grandmother PAST SURGICAL HISTORY Procedure Laterality Date - ANGIOPLASTY 02/14/06 Open Heart Surgery - CABG, ARTERY-VEIN, THREE 02/16/2006 CABG, three grafts ROS: All of the following reviewed and negative except as noted below: GENERAL: Feels much better with blood transfusion therapy, including improved fatigue, and weakness HEENT: no headache, vision changes, eye discomfort, hearing change, ear discomfort, sinus pain, nasal discharge or congestion, oral lesions, soreness, dental problem NECK: no adenopathy, discomfort, change in ROM CHEST: Significant orthopnea and dyspnea on exertion prior to admission, may be improving already HEART: no chest pain, palpitations, syncope ABDOMEN: no nausea, vomiting, constipation, diarrhea, abdominal pain : no dysuria, urgency, frequency, history of stones, incontinence NEURO: no confusion or alteration in consciousness, slurred speach, seizure, focal weakness EXTREMITIES: no new pain, edema, change in ROM HEME: Significant epistaxis, and melena, 4 weeks prior to admission. Had also been on iron therapy. PSYCH: no depression, anxiety, agitation PHYSICAL EXAMINATION: see below for new or abnormal findings BP 130/54 Pulse 78 Temp 37 ?C (98.6 ?F) (Oral) Resp 18 Ht 172.7 cm (5' 8) Wt 127 kg (280 lb) SpO2 98% BMI 42.57 kg/m2 BMI 42.57 kg/(m2) GENERAL: well nourished and developed; no acute distress; alert and oriented x 3; intact judgement and insight HEENT: no evidence of trauma; cranial nerves intact; eyes clear EOMI; no hearing deficits apparent; nasal passages unremarkable; throat and mucous membranes clear NECK: supple without lymphadenopathy; no JVD; no thyromegaly CHEST: clear bilaterally to auscultation; normal chest movement; no rales or rhonchi HEART: irregular rate and rhythm, normal S1 and S2, no murmurs, clicks, rubs, or gallops ABDOMEN: soft; nondistended; bowel sounds present; no hepatomegaly; no splenomegaly; no tenderness EXTREMITIES: no evidence of clubbing; no cyanosis; no deformity; no joint effusion; no edema NEURO: cranial nerves intact; no focal deficits; no confusion; no tremor; sensorium normal SKIN: no rash; no skin breakdown; no decubitus lesions. Very pale HEME: no bruising; no adenopathy. No obvious bleeding PSYCH: no evidence of depression; no anxiety; no agitation; no apparent hallucinations ABNORMAL/NEW FINDINGS: NONE CBC: Recent Labs 10/02/17 0340 WBC 9.53* RBC 2.79* HB 8.5* HCT 26.6* PLT 100* MCV 95.3 MCH 30.5 MPV 11.4 RDW 22.3* CMP: No results for input(s): NA, K, CHLOR, CO2, BUN, CREAT, GLUC, TPROT, CA, MG, ALBUMIN, TBILI, ALKPHOS, ALT, AST, ANION in the last 24 hours. Heme: No results for input(s): RETICP, ABSRETIC, LD, VAN, FE, TIBC, TRANSFERSAT in the last 24 hours. ASSESSMENT ACTIVE PROBLEM LIST Gib (Gastrointestinal Bleeding) Blood Loss Anemia Chronic Anticoagulation Atrial Fibrillation (Hcc) Primary Lung Adenocarcinoma, Left (Hcc) Coronary Artery Disease Involving [place] Heart Without Angina Pectoris Anemia Melena Positive Fecal Occult Blood Test Obesity, Class III, BMI >= 40 E66.01 PLAN: epistaxis?status post ENMT coagulation GI bleed?status post APC of two AVMs in distal antrum thrombocytopenia?secondary to chemotherapy, improving Blood loss anemia?now status post a total of 4 units of PRBCs this admission. atrial fibrillation?reinitiation of Xarelto today. Agree. -Previously also on aspirin, I would discontinue this, may consider resumption post completion of planned chemotherapy. Stage II lung cancer, status post resection, adjuvant chemotherapy currently on hold. Can probably resume in one to 2 weeks. Please note that the ultimate goal of his chemotherapy for lung cancer is for cure. Therefore, favor very aggressive therapy and intervention as needed. Reasonably comfortable, we'll follow along with you Tolerating his regular daily activities-home soon Bonnie Falcon M.D. HEMOGRAM/DIFF Collected: 10/02/2017 Status: F Source: [facility] 3:40 AM HEALTH SYSTEM REPOSITORY TYPE CODE TESTS RESULT OUT OF REFERENCE UNITS RANGE LAB WBC(LOINC) 4.23-9.07 thou/cmm High WBC 9.53 LAB RBC(LOINC) 4.63-6.08 mil/cmm Low RBC 2.79 LAB HGB(LOINC) 13.7-17.5 g/dL Low Hgb 8.5 LAB HCT(LOINC) 40.1-51.0 % Low Hct 26.6 LAB MCV(LOINC) 83.2-95.6 fl MCV 95.3 LAB MCH(LOINC) 25.7-32.2 pg MCH 30.5 LAB MCHC(LOINC) 32.3-36.5 % Low MCHC 32.0 LAB RDW(LOINC) 11.6-14.4 % High RDW 22.3 LAB RDWSD(LOINC 36.1-45.8 fl ) High RDW SD 65.0 LAB PLT(LOINC) 141-365 thou/cmm Low Platelet 100 Result Comment: Smear scanned tech agrees with platelet count LAB MPV(LOINC) 8.7-12.0 fl MPV 11.4 LAB NRBCR(LOINC) 0.0-0.2 % Nucleated RBC % High 0.9 LAB NRBCA(LOINC) 0.00-0.01 thou/cmm Nucleated RBC High Absolute 0.09 LAB NRBC(LOINC) /100 WBC Nucleated RBC 1.0 LAB LYMPH(LOINC) % Lymphocyte 12.0 LAB MNO(LOINC) % Monocyte 13.0 LAB EOSIN(LOINC) % Eosinophil 1.0 LAB BASO(LOINC) % Basophil 1.0 LAB META(LOINC) % Metamyelocytes 1.0 LAB MYELO(LOINC) % Myelocytes 2.0 LAB IMGRA(LOINC) Immat Grans Abs calc 0.29 LAB LYMN(LOINC) 0.84-2.85 thou/cmm Abs. Lymph 1.14 LAB MONON(LOINC) 0.30-0.82 thou/cmm Abs. Rush High 1.24 LAB EOSN(LOINC) 0.04-0.54 thou/cmm Abs. Eosin 0.10 LAB BASON(LOINC) 0.01-0.08 thou/cmm Abs. Baso High 0.10 LAB SEG(LOINC) % Seg Neutrophil 70.0 LAB SEGN(LOINC) 1.78-5.38 thou/cmm Abs. Neut High 6.67 LAB RBCM(LOINC) RBC Morphology Present LAB ANISO(LOINC) Anisocytosis Marked LAB ELLIP(LOINC) Elliptocytosis Few LAB POLY(LOINC) Polychromasia Moderate Performed By: #### [id number] #### [facility] [address], [place] [address] CNDS Observed: 10/02/2017 Status: COMPLETED Source: [facility] 12:00 AM CLINIC OTHER CAMPUS REPOSITORY HNO ID: [id number] Author: Akil Fitzgerald Service: Hospital Medicine Author Type: Physician Type: Discharge Summaries Filed: 10/03/2017 2:45 PM Note Text: [facility] - Discharge Summary PATIENT NAME: JV DURHAM CSN: [id number] DATE OF : 1945 SEX/AGE: M/72 PATIENT TYPE: I HOSP SVC: INTM LOCATION: [id number] ADMIT DATE: 09/29/2017 DISCHARGE DATE: 10/02/2017 DATE OF SERVICE: 10/02/2017 PCP: Fany Hobson DO HISTORY OF PRESENT ILLNESS AND HOSPITAL COURSE: This is a 72-year-old male, who presented to emergency room with shortness of breath. Does have a history of AFib, also history of lung cancer as well and recurrent epistaxis. He complains of shortness of breath, fatigue, and melenic stools for 3 days. He was on aspirin and Xarelto for this as well. He did have a positive FOBT and hemoglobin 5, transferred from outside hospital. The patient was admitted. He was seen by GI Service. He was transfused at least 2 units of blood from what I could tell. Hemoglobin was monitored. Aspirin was also held. He was seen by GI which eventually did scope him. EGD showed 2 small AVMs with small fresh blood clots at the distal antrum. He was seen by ENT as well for possibility of nosebleeds. They recommended going off nasal cannula. He is using saline gel drops only. He was seen by Heme-Onc Service as well, but currently no interventions to add. It is recommended following up with Heme-Onc doctor as outpatient. The patient was cured of lung cancer. The patient's hemoglobin was monitored and he was stable at time of discharge. PRIMARY DIAGNOSES: 1. Primary diagnosis was anemia, likely secondary to gastrointestinal bleed, epistaxis versus chemo. 2. History of lung cancer. 3. Coronary artery disease. 4. Atrial fibrillation as well. CONDITION: Stable. DISPOSITION: Discharged to home. Consultations were placed to Heme-Onc, GI, and ENT. DISCHARGE MEDICATIONS: Please see MRF. I did start the patient back on aspirin after 24 hours. We also discussed adding on Xarelto, but discussed the benefits and risks of being on these antiplatelets, anticoagulants and the possibility of bleed, and was started on aspirin. Recommended he follow up with PCP and bar host/hostess to discuss starting him on Xarelto as well. Also recommended a repeat CBC in a few days as well. PT to recommend home with PT. [facility] Greater than 30 minute was spent on discharge planning. Akil Fitzgerald MD Family Medicine SA:jyoti /[id number] cc:Fany Hobson, DO HEMOGRAM/DIFF Collected: 10/01/2017 Status: F Source: [facility] 3:30 PM HEALTH SYSTEM REPOSITORY TYPE CODE TESTS RESULT OUT OF REFERENCE UNITS RANGE LAB WBC(LOINC) 4.23-9.07 thou/cmm WBC 8.23 LAB RBC(LOINC) 4.63-6.08 mil/cmm RBC Low 2.70 LAB HGB(LOINC) 13.7-17.5 g/dL Hgb Low 8.4 LAB HCT(LOINC) 40.1-51.0 % Hct Low 26.0 LAB MCV(LOINC) 83.2-95.6 fl MCV High 96.3 LAB MCH(LOINC) 25.7-32.2 pg MCH 31.1 LAB MCHC(LOINC 32.3-36.5 % ) MCHC 32.3 LAB RDW(LOINC) 11.6-14.4 % RDW High 21.4 LAB RDWSD(LOIN 36.1-45.8 fl C) RDW SD High 63.2 LAB PLT(LOINC) 141-365 thou/cmm Platelet Low 77 LAB MPV(LOINC) 8.7-12.0 fl MPV 11.5 LAB NRBCR(LOIN 0.0-0.2 % C) Nucleated RBC % High 0.9 LAB NRBCA(LOIN 0.00-0.01 thou/cmm C) Nucleated RBC High Absolute 0.07 LAB NRBC(LOINC /100 WBC ) Nucleated RBC 1.0 LAB SEG(LOINC) % Seg Neutrophil 76.0 LAB LYMPH(LOIN % C) Lymphocyte 13.0 LAB MNO(LOINC) % Monocyte 4.0 LAB EOSIN(LOIN % C) Eosinophil 2.0 LAB BASO(LOINC % ) Basophil 0.0 LAB ATYP(LOINC % ) Atypical Lymph 3.0 LAB BI(LOINC) % Other Immatures 2.0 LAB SEGN(LOINC 1.78-5.38 thou/cmm ) Abs. Neut High 6.25 LAB LYMN(LOINC 0.84-2.85 thou/cmm ) Abs. Lymph 1.32 LAB MONON(LOIN 0.30-0.82 thou/cmm C) Abs. Rush 0.33 LAB EOSN(LOINC 0.04-0.54 thou/cmm ) Abs. Eosin 0.16 LAB BASON(LOIN 0.01-0.08 thou/cmm C) Abs. Baso Low 0.00 LAB BLSTN(LOIN thou/cmm C) Blast and BI # 0.16 LAB RBCM(LOINC ) RBC Morphology Present LAB MACRO(LOIN C) Macrocytosis Slight LAB POLY(LOINC ) Polychromasia Few LAB INTD(LOINC ) CBC Interp. See below LAB PATH(LOINC ) Interpreted by See below Result Comment: Kaylee Bryant M.D., Pathologist . Performed By: #### CBCD1 #### [place] [address] PROGRESS Observed: 10/01/2017 Status: COMPLETED Source: [facility] 1:58 PM CLINIC OTHER CAMPUS REPOSITORY HNO ID: [id number] Author: Luis Lui MD Service: [facility] Author Type: Physician Type: Progress Notes Filed: 10/01/2017 2:07 PM Note Text: INTERNAL MEDICINE PROGRESS NOTE SERVICE DATE: 10/01/2017 SERVICE TIME: 8 am INTERVAL HISTORY: No overnight events No gross bleeding Mild SOB on exertion. No CP MEDICATIONS: Current hospital medications: [MAR Hold due to Transfer] acetaminophen 650 mg tab(s) (TYLENOL) 650 mg ORAL q 6 H PRN [MAR Hold due to Transfer] ondansetron (PF) 4 mg injection (ZOFRAN) 4 mg INTRAVENOUS q 6 H PRN [MAR Hold due to Transfer] sodium chloride 0.65 % 1 [place] (AYR, OCEAN) 1 [place] EACH NOSTRIL QID [MAR Hold due to Transfer] sodium chloride-aloe vera topical nasal gel (AYR GEL w/ALOE) INTRANASAL QID [MAR Hold due to Transfer] gabapentin 1,200 mg cap(s) (NEURONTIN) 1,200 mg ORAL DAILY [MAR Hold due to Transfer] valsartan 40 mg tab(s) (DIOVAN) 40 mg ORAL DAILY [MAR Hold due to Transfer] pramipexole 0.5 mg tab(s) (MIRAPEX) 0.5 mg ORAL TID [MAR Hold due to Transfer] metoprolol tartrate (short acting) 25 mg tab(s) (LOPRESSOR) 25 mg ORAL q 12 H [MAR Hold due to Transfer] furosemide 40 mg tab(s) (LASIX) 40 mg ORAL DAILY [MAR Hold due to Transfer] DULoxetine 60 mg cap(s) (CYMBALTA) 60 mg ORAL DAILY [MAR Hold due to Transfer] pantoprazole DR 40 mg tab(s) (PROTONIX) 40 mg ORAL BID AC (0600/1600) [MAR Hold due to Transfer] digoxin 0.25 mg tab(s) (LANOXIN) 0.25 mg ORAL DAILY [MAR Hold due to Transfer] 0.9% NaCl 3-5 mL 3-5 mL INTRAVENOUS q 12 H [MAR Hold due to Transfer] atorvastatin 10 mg tab(s) (LIPITOR) 10 mg ORAL AT BEDTIME [MAR Hold due to Transfer] fenofibrate 200 mg cap(s) (LOFIBRA) 200 mg ORAL DAILY WITH BREAKFAST PHYSICAL EXAM: VITAL SIGNS 10/01/17 1140 10/01/17 1155 10/01/17 1300 10/01/17 1315 BP: (!) 114/45 (!) 107/47 127/54 134/52 Pulse: 75 72 78 89 Resp: Temp: 36.6 ?C (97.9 ?F) 36.6 ?C (97.9 ?F) TempSrc: Oral Oral SpO2: 100% 97% Weight: Height: Temp (24hrs), Av.6 ?C (97.9 ?F), Min:36.6 ?C (97.9 ?F), Max:36.6 ?C (97.9 ?F) INTAKE/OUTPUT Intake/Output Summary (Last 24 hours) at 10/01/17 1358 Last data filed at 10/01/17 1300 Gross per 24 hour Intake 1599 ml Output 1726 ml Net -127 ml General: Awake and alert, in no distress, cooperative Neck: Supple without JVD or Lymphadenopathy Cardiac: RRR, S1S2 with no MGR Lungs: Clear to auscultation bilaterally Abdomen: Soft non-tender, non-distended, normal bowel sounds Extremities: No deformities, edema, clubbing or skin discoloration. LAB DATA: CBC: Recent Labs 10/01/17 0349 09/30/17 1850 09/30/17 1145 09/30/17 0630 09/29/17 2330 WBC -- -- -- 4.09* 4.76 HB 7.4* 7.2* 7.6* 6.7* 4.6* HCT 22.4* 22.4* 23.7* 21.1* 14.8* PLT -- -- -- 51* 47* MCV -- -- -- 99.1* 101.4* COAG: No results for input(s): APTT, INR in the last 168 hours. BMP: Recent Labs 09/30/17 0630 09/30/17 0028 GLUC 102* 96 NA 138 141 K 4.0 4.1 CHLOR 110* 110* CO2 26 25 ANION 6* 10 BUN 8 8 CREAT 0.81 0.85 CHEM: Recent Labs 09/30/17 0630 09/30/17 0028 ALB -- 2.8* TPROT -- 5.3* CA 7.8* 8.3* ASSESSMENT AND PLAN: # Acute on Chronic anemia - secondary to GIB, epistaxis and chemotherapy. Held xarelto on admission. Transfused multiple PRBCs GI consulted:had EGD 10/01/17: Two AV malformations at distal antrum. Cleared to resume anticoagulation per GI ENT consulted,Local care,saline gel and drops on discharge, epistaxis precautions. AVOID NASAL CANULA Heme/Onc following: ultimate goal of his chemotherapy for lung cancer is for cure. F.U HH #Lung CA on chemotherapy. # CAD s/p CABG - con't metoprolol, statin, valsartan. Stable. ASA on hold. # COPD - stable Con't bronchodilators PRN. # A.Fib - Rate controlled with metoprolol. Held Xarelto and ASA on admission. GI cleared to restart. Would restart Xarelto tomorrow if no evidence of bleed. ?? Code Status: Full Code ? VTE Prophylaxis:?SCDs. SIGNATURE: LUIS LUI MD PATIENT NAME: Jv Durham Jr. DATE: October 01, 2017 TIME: 1:58 PM THERAPY NT Observed: 10/01/2017 Status: COMPLETED Source: MEDICINE BOW 12:19 PM [facility] REPOSITORY HNO ID: [id number] Author: Luz MontesinosOtr/Shannan) Jhoan Service: Occupational Therapy Author Type: Occupational Therapist Type: Therapy (PT/OT/Speech/Resp) Filed: 10/01/2017 12:24 PM Note Text: Occupational Therapy SERVICE DATE: 10/01/2017 SERVICE TIME: 1145 to 1148 ROOM: [facility] ([facility] Attempted Evaluation. Patient not seen due to Test/Procedure. Treatment Frequency (times per week): Discontinue Therapy Services Reasons Therapy Services Discontinued: No skilled needs;Other: See Comment (Pt may benefit from home OT via chart review and PT consult) Plan of Care developed with: Other: See Comment (verbal consult with CM) SIGNATURE: Luz Staples, JENNYR/L PATIENT NAME: Jv Durham Jr. DATE: October 01, 2017 TIME: 12:20 PM PAGER: [phone] PT ED Observed: 10/01/2017 Status: COMPLETED Source: MEDICINE BOW 12:18 PM [facility] REPOSITORY HNO ID: [id number] Author: Judith MontesinosRn) [place] Moreno Service: Nursing Author Type: Registered Nurse Type: Patient Education Filed: 10/01/2017 12:19 PM Note Text: ONGOING PATIENT EDUCATION TOPIC Reinforced: AVM's, APC applied Patient Name: Jv Durham Jr. Patient Location: [facility] Readiness To Learn Motivation To Learn: Interested Instruction Provided To: Patient and family member Learning Response Patient/Family Response: Verbalizes understanding of: POST-PROCEDURE INSTRUCTIONS-Correct actions to take to reduce post procedure complications Method of Instruction: Individual instruction Follow-Up Plan: Recommend - Recommend continued instruction and follow up as directed Electronically signed by: Judith Moreno RN ANES POST Observed: 10/01/2017 Status: COMPLETED Source: MEDICINE BOW 11:[address] [facility] OTHER CAMPUS REPOSITORY HNO ID: [id number] Author: Morgan Ro Service: Anesthesiology Author Type: Physician Type: Anesthesia PostOp Filed: 10/01/2017 11:53 AM Note Text: POST ANESTHESIA EVALUATION NOTE SERVICE DATE: 10/01/2017 SERVICE TIME: 11:53 AM : 1945 Vitals: 09/30/17 0710 09/30/17 0933 09/30/17 1950 10/01/17 0600 Temp: 36.8 ?C (98.2 ?F) 36.3 ?C (97.3 ?F) 36.6 ?C (97.9 ?F) 36.6 ?C (97.9 ?F) 09/30/17194909/30/17 19510/01/17 0600 10/01/17 0900 BP: (!) 117/46 (!) 110/45 126/57 (!) 105/47 09/30/17 1950 10/01/17 0600 10/01/17 0900 10/01/17 1125 Pulse: 85 78 75 77 09/30/17 1950 10/01/17 0600 10/01/17 0900 10/01/17 1125 Resp: 18 18 16 20 09/30/17194910/01/17 0600 10/01/17 0900 10/01/17 1125 SpO2: 98% 100% 100% 96% Validated Vital Signs: Yes POST ANES STATUS: No apparent anesthetic complications. The patient is appropriately hydrated with stable respiratory and cardiovascular status. Patient has safe and adequate airway control. The patient has appropriate pain relief and no significant post operative nausea or vomiting. The patient has achieved baseline mental status. Further assessment by Anesthesia Service: None Other Remarks: SIGNATURE: Morgan Ro DO PATIENT NAME: Jv Durham Jr. DATE: October 01, 2017 TIME: 11:53 AM PAGER/CONTACT #: [phone] BRIEF OP NOT Observed: 10/01/2017 Status: COMPLETED Source: MEDICINE BOW 11:21 AM [facility] REPOSITORY HNO ID: [id number] Author: Rio Jordan Service: Gastroenterology Author Type: Physician Type: Brief Op Note Filed: 10/01/2017 11:29 AM Note Text: BRIEF OPERATIVE / PROCEDURE NOTE LOG ID: [id number] SURGERY/PROCEDURE DATE: 10/01/2017 SURGEON(S)/PROCEDURALIST(S) AND COMPUTER NUMERICAL CONTROL PROGRAMMER(S): Rio Jordan - Primary endoscopist INDICATION: ANEMIA PRE-OP/PRE-PROCEDURE DIAGNOSIS: Upper GI bleeding POST-OP/POST-PROCEDURE DIAGNOSIS: Two AV malformations at distal antrum PROCEDURE(S): upper endoscopy with APC argelia. Of AVMs ANESTHESIA: MAC FINDINGS: Two small AVMs with small fresh blood clots at distl antrum ESTIMATED BLOOD LOSS: Minimal SPECIMENS: none COMPLICATIONS: None POST-PROCEDURE RECOMMENDATIONS/FOLLOW UP: Resume low dose PPI,. Resume anticoagulation Dict #[id number] SIGNATURE: Rio Jordan MD PATIENT NAME: Jv Durham Jr. DATE: 10/01/2017 TIME: normal ALLIED HEALTH Observed: 10/01/2017 Status: COMPLETED Source: MEDICINE BOW 10:47 AM [facility] REPOSITORY HNO ID: [id number] Author: Keira Calderon Coord Service: (none) Author Type: (none) Type: Allied Health Filed: 10/01/2017 10:47 AM Note Text: WARP PICKER NOTE SERVICE DATE: 10/01/2017 SERVICE TIME: 1447 Referral: Home Care referral received by: CM Will continue to follow for physician orders SIGNATURE: Keira Calderon Coord PATIENT NAME: Jv Durham Jr. DATE: October 01, 2017 TIME: 10:47 AM CASE MANAGEM Observed: 10/01/2017 Status: COMPLETED Source: MEDICINE BOW 10:36 AM [facility] REPOSITORY HNO ID: [id number] Author: Ivis (Rn) [place] Rudd Service: Care Management Author Type: Registered Nurse Type: Care Mgt Progress Note Filed: 10/01/2017 10:38 AM Note Text: CARE MANAGEMENT PROGRESS NOTE SERVICE DATE: 10/01/2017 SERVICE TIME: 10:36 AM LOS: 2 days Chart reviewed. Pt currently off floor for EGD. PT recommending home PT. HHC referral and cm needs to follow for other needs. Treatment for Lung cancer is for CURE. Continuing aggressive treatment. SIGNATURE: Ivis Rudd RN PATIENT NAME: Jv Durham Jr. DATE: October 01, 2017 TIME: 10:36 AM PAGER/CONTACT #: [phone] ANES PREOP Observed: 10/01/2017 Status: COMPLETED Source: MEDICINE BOW 10:26 AM CLINIC OTHER CAMPUS REPOSITORY HNO ID: [id number] Author: Morgan Ro Service: Anesthesiology Author Type: Physician Type: Anesthesia PreOp Filed: 10/01/2017 10:28 AM Note Text: ANESTHESIOLOGY DAY OF SURGERY NOTE SERVICE DATE: 10/01/2017 SERVICE TIME: 10:26 AM : 1945 Procedure(s) (LRB): EGD (Left) Surgeon(s): Rio Jordan Estimated body mass index is 42.57 kg/(m2) as calculated from the following: Height as of this encounter: 172.7 cm (5' 8). Weight as of this encounter: 127 kg (280 lb). Most recent hematocrit and potassium results: Hematocrit 22.4 10/01/2017 Potassium 4.0 09/30/2017 ANES DOS/PREOP NOTE: Vitals: 09/30/17 1950 09/30/17 1954 10/01/17 0600 10/01/17 0900 BP: (!) 117/46 (!) 110/45 126/57 (!) 105/47 Pulse: 85 78 75 Resp: 16 Temp: 36.6 ?C (97.9 ?F) 36.6 ?C (97.9 ?F) TempSrc: Oral Oral SpO2: 98% 100% 100% Weight: Height: ACTIVE PROBLEM LIST Gib (Gastrointestinal Bleeding) Blood Loss Anemia Chronic Anticoagulation Atrial Fibrillation (Hcc) Primary Lung Adenocarcinoma, Left (Hcc) Coronary Artery Disease Involving [place] Heart Without Angina Pectoris Anemia Melena Positive Fecal Occult Blood Test Obesity, Class III, BMI >= 40 E66.01 PAST MEDICAL HISTORY Diagnosis Date - Coronary atherosclerosis of unspecified type of vessel, alturas or graft Coronary artery disease - Essential hypertension, benign PAST SURGICAL HISTORY Procedure Laterality Date - ANGIOPLASTY 02/14/06 Open Heart Surgery - CABG, ARTERY-VEIN, THREE 02/16/2006 CABG, three grafts FAMILY HISTORY Problem Relation Age of Onset - Cancer Brother - Cancer Maternal Grandfather - Heart Maternal Grandfather - Hypertension Mother - Hypertension Father - Stroke Paternal Grandmother Social History: Social History Substance Use Topics - Smoking status: Former Smoker - Smokeless tobacco: Never Used Comment: Quit in 1992 - Alcohol use No No current facility-administered medications on file prior to encounter. Current Outpatient Prescriptions on File Prior to Encounter: ASPIR-81 81 MG TAB Take one(1) tablet daily. FOLIC ACID 1 MG TAB Take one(1) tablet daily. Current Facility-Administered Medications: acetaminophen 650 mg tab(s) (TYLENOL) 650 mg ORAL q 6 H PRN Gloria (Terence) GARLAND Adam.PERFORMANCE IMPROVEMENT COORDINATOR 650 mg at 09/30/17 0338 ondansetron (PF) 4 mg injection (ZOFRAN) 4 mg INTRAVENOUS q 6 H PRN Gloria (Terence) [place] Adam.PERFORMANCE IMPROVEMENT COORDINATOR 4 mg at 09/30/17 0338 sodium chloride 0.65 % 1 [place] (AYR, OCEAN) 1 [place] EACH NOSTRIL QID Elroy Hough 1 [place] at 09/30/17 1554 sodium chloride-aloe vera topical nasal gel (AYR GEL w/ALOE) INTRANASAL QID Elroy Hough gabapentin 1,200 mg cap(s) (NEURONTIN) 1,200 mg ORAL DAILY Judith Sara Qavi 1,200 mg at 09/30/17 0828 valsartan 40 mg tab(s) (DIOVAN) 40 mg ORAL DAILY Judith Sara Qavi 40 mg at 09/30/17 0828 pramipexole 0.5 mg tab(s) (MIRAPEX) 0.5 mg ORAL TID Judith Sara Qavi 0.5 mg at 09/30/17 220 metoprolol tartrate (short acting) 25 mg tab(s) (LOPRESSOR) 25 mg ORAL q 12 H Judith Sara Qavi 25 mg at 09/30/17 220 furosemide 40 mg tab(s) (LASIX) 40 mg ORAL DAILY Judith Sara Qavi 40 mg at 09/30/17 0830 DULoxetine 60 mg cap(s) (CYMBALTA) 60 mg ORAL DAILY Judith Sara Qavi 60 mg at 09/30/[address] 40 mg tab(s) (PROTONIX) 40 mg ORAL BID AC (0600/1600) Judith Sara Qavi 40 mg at 10/01/17 0455 digoxin 0.25 mg tab(s) (LANOXIN) 0.25 mg ORAL DAILY Judith Sara Qavi 0.25 mg at 09/30/17 0831 0.9% NaCl 3-5 mL 3-5 mL INTRAVENOUS q 12 H Judith Sara Qavi 5 mL at 09/30/17 2209 atorvastatin 10 mg tab(s) (LIPITOR) 10 mg ORAL AT BEDTIME Judith Sara Qavi 10 mg at 09/30/17 2207 fenofibrate 200 mg cap(s) (LOFIBRA) 200 mg ORAL DAILY WITH BREAKFAST Judith Sara Qavi 200 mg at 09/30/17 0829 Allergies: ALLERGIES No Known Allergies DOS EXAM: Adequate NPO status: Yes Anesthetic risks, benefits, alternatives, personnel and consent discussed: Yes Patient agrees to proceed: Yes Previous Anesthesia: No history of adverse event. Airway Assessment: MP 2; Neck ROM: Full ROM without neurologic symptoms; Airway Evaluation: Thick neck Symptoms of Sleep Apnea: Hypertension, BMI > 35, Age over 50 (72 year old) and Male gender Dentition: Poor dentition Additional Physical Exam: Lungs: Patient health status unchanged since recent history and physical. See history and physical for exam findings. Cardiac: Patient health status unchanged since recent history and physical. See history and physical for exam findings. Additional Pertinent Findings: N/A Blood Products: Not anticipated for this procedure. Anesthetic Plan: MAC with Sedation Pain Management Plan: Parenteral or Oral ASA Class: 4 Other Medical Problems: lung CA on chemo, acute on chronic anemia, CAD s/p CABG, severe epistaxis now resolved Chronic Beta Taisha medication administered within 24 hours: Yes I have interviewed and examined the patient. I have reviewed the medical record and/or the pre-anesthesia evaluation, pertinent labs, and test results. Significant changes in the patient's condition since the History and Physical, not otherwise documented in primary service progress notes: No This contains updated information obtained within 48 hours of Surgery/Procedure. SIGNATURE: Morgan Ro DO PATIENT NAME: Jv Durham Jr. DATE: October 01, 2017 TIME: 10:26 AM CSN: [id number] PT ED Observed: 10/01/2017 Status: COMPLETED Source: MEDICINE BOW 9:48 AM CLINIC OTHER CAMPUS REPOSITORY HNO ID: [id number] Author: Lashanda (Rn) Elo RN Service: Nursing Author Type: Registered Nurse Type: Patient Education Filed: 10/01/2017 9:49 AM Note Text: PRE OP LEARNING ASSESSMENT PROCEDURE/SURGERY: GI PROCEDURES: EGD READINESS TO LEARN COGNITIVE ABILITY: Alert and oriented MOTIVATION TO LEARN: Eager FAMILY SUPPORT: None - Unavailable/disinterested PATIENT LEARNS BEST BY: Verbal Instruction FACTORS AFFECTING LEARNING: None PHYSICAL LIMITATIONS AFFECTING LEARNING: None Electronically Signed By: Lashanda Gasca RN In Department: [place] [address] ONCOLOGY THERAPY NT Observed: 10/01/2017 Status: COMPLETED Source: MEDICINE BOW 9:23 AM CLINIC OTHER CAMPUS REPOSITORY HNO ID: [id number] Author: Saira (Pt) GRICELDA French Service: Physical Therapy Author Type: Physical Therapist Type: Therapy (PT/OT/Speech/Resp) Filed: 10/01/2017 9:28 AM Note Text: Physical Therapy Evaluation SERVICE DATE: 10/01/2017 SERVICE TIME: 839 to 904 ROOM: [place] [address] ([facility] PRE POST-03) Recommended Discharge Disposition: Home PT Recommended Discharge Disposition Comments: Patient demonstrates near baseline mobility. However, due to current medical status would benefit from continued skilled PT Anticipated Discharge Needs: Physical Assist at Home;Supervision at Home Physical Assist at Home for: Ambulation;Cleaning;Laundry;Meals;Stairs;Safety Supervision at Home due to: Other: See Comment (change in medical status) PT Recommendations to Nursing: Ambulate with device;To bathroom;In halls;Transfer to/from chair;OOB for Meals;Utilize bed in chair position;Sit at edge of bed;With assist of 1 person Device: Wheeled Walker PT 6 Clicks Score: 17 Precautions/Activity Restrictions: Fall Risk;Lines/Tubes/Drains Precaution/Activity Restriction Comments: 3L O2 ASSESSMENT : Patient presents with personal factors, comorbidities and results of the PT examination that require moderate complexity decision making. The patient requires skilled physical therapy to address multiple PT problems in order for the patient to return to a baseline functional level. Patient Disposition at Start of Session: Supine in Bed Patient Disposition at End of Session: OOB in Chair;Call [place] in Reach;Other: See Comment (nurse present in room) Tolerated Full Session (fatigued by end) Physical Therapy Problem List: Education Deficit;Safety Deficits;Decreased Strength;Functional Mobility Impairment;Balance Impaired Patient /Caregiver Goals: Go Home Goals for Plan of Care: Rolling with: Independent Transfer supine to/from sit with: Independent Transfer sit to/from stand with: Supervision Ambulate with: Supervision Distance: 25x2 Device: Wheeled Walker Goal: Patient able to tolerate 10 minutes of continuous activity Goal: Patient able to perform B LE general strengthening Rehab Potential: Good PLAN: Treatment Frequency (times per week): 5 (1-5) Current admission Treatment Interventions: Education;Energy Conservation Training;Joint Mobility;Strengthening;Functional Mobility Training;Balance Training;Neuromuscular Re-education Plan of Care developed with: Patient TREATMENT INTERVENTIONS: Therapy Diagnosis: Reduced mobility-other;Muscle Weakness (generalized);Unsteadiness on feet;Abnormalities of gait and mobility-other Interventions Provided: Evaluation;Therapeutic Activity (33925);Gait Training (73646) $ Evaluation-Moderate (94860) Billed Units: 1 unit Therapeutic Activity (22037) Treatment Minutes: 5 0 units Skilled Intervention(s): Instructed patient in log roll technique Instructed patient in supine to sit pushing with upper extremities to sit up Instruction in sit to and from stand technique with proper hand placement and body positioning at edge of bed/chair Education with energy conservation while endurance is low Education with Proper breathing technique - since current O2 level is higher than baseline Gait Training (31634) Treatment Minutes: 8 1 unit Skilled Intervention(s): Instruction in sit to stand technique with proper hand placement and body positioning at edge of bed/chair, Instruction in stand to sit technique with LE's touching chair/bed and reaching back for surface - verbal cuing multiple times Instruction in sequencing, gait pattern, Instruction in correction of gait deviations - importance to stay within front wheeled walker during ambulation and direction changes Instruction in use of equipment, cues for sequence and pattern - to promote fall prevention Total Timed Code Treatment Minutes: 13 Total Treatment Time (minutes): 25 FUNCTIONAL G CODE: PT 6 Clicks Score: 17 (10/01/17839) Mobility: Walking and Moving Around Current Status (G8978): CK (10/01/17839) Mobility: Walking and Moving Around Goal Status (G8979): CJ (10/01/17839) Based on clinical assessment and the score on the 6 Clicks Functional Assessment Tool, the G code and corresponding severity modifiers are documented above. SUBJECTIVE: Current Hospital Course: Chart reviewed; . 72 year old male presented to hospital due to shortness of breath, fatigue and melanotic stools for a few days. Active Hospital Problems Diagnosis - Obesity, Class III, BMI >= 40 E66.01 - Blood loss anemia - Chronic anticoagulation - Atrial fibrillation (HCC) - Primary lung adenocarcinoma, left (HCC) Hx of wedge resection left lung at [facility] 06/01. Adjuvant chemotherapy-probable carboplatin/alimta - Coronary artery disease involving alt[place] heart without angina pectoris - GIB (gastrointestinal bleeding) - Anemia Added automatically from request for surgery [id number] - Melena Added automatically from request for surgery [id number] - Positive fecal occult blood test Added automatically from request for surgery [id number] PAST MEDICAL HISTORY Diagnosis Date - Coronary atherosclerosis of unspecified type of vessel, alturas or graft Coronary artery disease - Essential hypertension, benign PAST SURGICAL HISTORY Procedure Laterality Date - ANGIOPLASTY 02/14/06 Open Heart Surgery - CABG, ARTERY-VEIN, THREE 02/16/2006 CABG, three grafts Reason for Physical Therapy Consult : progressive mobility protocol Relevant Past Medical History: COPD, CABG. Lung CA - active chemo, parkinsons disease Patient Report: Lying in bed upon arrival. Denies any pain/discomfort. Agreeable to PT Home Environment Patient Lives With: Significant Other ( in 1 story house) Assistance Available: 24 Hour Entry To Home: Stairs Number Of Stairs Into Home: 1 Tub/Shower Type: walkin with grab bars and bench Laundry: does Equipment Owned: Cane;Grab Bars-Shower;Grab Bars-Toilet;Wheeled Walker;Rollator;Shower Bench;Wheelchair;Home Oxygen ([facility] house handicap accessable) Prior Functional Level: Required Assistance Assistance Required With: Cleaning;Laundry;Meals;Stairs;Safety Prior Functional Level Comments: Patient states uses his walker/rollator to ambulate short distances. Since chemo his activity level has decreased. Normally up moving around an drives OBJECTIVE: Range Of Motion: Within Functional Limits Strength: Within Functional Limits Except Location Strength Not WFL: Upper Extremity;Lower Extremity Left Upper Extremity Strength: 4/5 Right Upper Extremity Strength: 4/5 Left Lower Extremity Strength: 4/5 Right Lower Extremity Strength: 4/5 CURRENT FUNCTIONAL STATUS: Current Functional Mobility Assist Level Additional Information Rolling Modified Independent Supine to Sit Modified Independent Sit to Supine Scooting Independent Sit to Stand Stand By Assistance Stand to Sit Stand By Assistance Bed to Chair Toilet/Commode Gait Contact Guard Assistance Gait Device: Wheeled Walker Gait Distance (feet): 15x2 Stairs Curb Step Car Transfer General Gait Deviations: Joellen decreased;Flexed trunk posture Patient set up in chair with call light and phone in reach on bedside table. Advised to use call light and wait for assist to get back to bed Nurse present in room. Please see discipline specific clinical documentation flowsheet for complete details for this therapy evaluation/treatment. SIGNATURE: Saira French PT PATIENT NAME: Jv Durham Jr. DATE: October 01, 2017 TIME: 9:23 AM PAGER/CONTACT #: [phone] RBC PRODUCTS Collected: 10/01/2017 Status: F Source: [facility] 9:14 AM HEALTH SYSTEM REPOSITORY TYPE CODE TESTS RESULT OUT OF REFERENCE UNITS RANGE LAB UNIT1(LOINC ) Xmatch Unit 1 see below Result Comment: Compatible Performed By: #### RBCPS #### [place] [address] PROGRESS Observed: 10/01/2017 Status: COMPLETED Source: MEDICINE BOW 8:50 AM [facility] REPOSITORY HNO ID: [id number] Author: Elroy Hough Service: Otolaryngology Author Type: Physician Type: Progress Notes Filed: 10/01/2017 8:52 AM Note Text: Doing better and not bleeding. Off nasal cannula and using saline gel and drops. Should send home with him. No blood in pharynx and airway improved nasally and should continue to progress if adheres to epistaxis precautions. Thanks, Will see again as needed or F/u as outpatient. PROGRESS Observed: 10/01/2017 Status: COMPLETED Source: MEDICINE BOW 8:06 AM [facility] REPOSITORY HNO ID: [id number] Author: Bonnie Falcon Service: Hematology/Oncology Author Type: Physician Type: Progress Notes Filed: 10/01/2017 8:06 AM Note Text: JV DURHAM JR. 72 year old HEMATOLOGY/MEDICAL ONCOLOGY CONSULTATION: Lung Cancer, GI Bleeding, Anticoagulation with Xarelto Plus Aspirin Subjective HPI: 72-year-old male, undergoing chemotherapy for recent diagnosis of lung cancer, on anticoagulation with Xarelto and aspirin, admitted with bright red blood per rectum ?3, associated with generalized fatigue, weakness, dyspnea on exertion. He has been transferred to [facility] for GI evaluation. In relation to his lung cancer, he is status post wedge resection of his left upper lobe in May 2017 at [facility] He was found to have a T2a and NX M0 malignancy, because of significant scarring, appropriate and usual node sampling could not be performed. Because of this, he has proceeded with adjuvant chemotherapy, and by his description, this is likely carboplatin/Alimta therapy. In relation to his Xarelto, this apparently is being utilized secondary to diagnosis of chronic atrial fibrillation. He also utilizes aspirin, and has been having problems with significant epistaxis 4 weeks. Current Facility-Administered Medications: alteplase (CATHFLO) injection 2 mg 2 mg INTRALUMINAL ONCE Gloria (Terence) YESSENIA Adam acetaminophen 650 mg tab(s) (TYLENOL) 650 mg ORAL q 6 H PRN Gloria (Terence) APRN. KiaPERFORMANCE IMPROVEMENT COORDINATOR 650 mg at 09/30/17 0338 ondansetron (PF) 4 mg injection (ZOFRAN) 4 mg INTRAVENOUS q 6 H PRN Gloria (Terence) APRN. KiaPERFORMANCE IMPROVEMENT COORDINATOR 4 mg at 09/30/17 0338 sodium chloride 0.65 % 1 [place] (AYR, OCEAN) 1 [place] EACH NOSTRIL QID Elroy Hough 1 [place] at 09/30/17 1554 sodium chloride-aloe vera topical nasal gel (AYR GEL w/ALOE) INTRANASAL QID Elroy Hough gabapentin 1,200 mg cap(s) (NEURONTIN) 1,200 mg ORAL DAILY Judith Sara Qavi 1,200 mg at 09/30/17 0828 valsartan 40 mg tab(s) (DIOVAN) 40 mg ORAL DAILY Judith Sara Qavi 40 mg at 09/30/17827 pramipexole 0.5 mg tab(s) (MIRAPEX) 0.5 mg ORAL TID Judith Sara Qavi 0.5 mg at 09/30/172207 metoprolol tartrate (short acting) 25 mg tab(s) (LOPRESSOR) 25 mg ORAL q 12 H Judith Sara Qavi 25 mg at 09/30/17 220 furosemide 40 mg tab(s) (LASIX) 40 mg ORAL DAILY Judith Sara Qavi 40 mg at 09/30/17 0830 DULoxetine 60 mg cap(s) (CYMBALTA) 60 mg ORAL DAILY Judith Sara Qavi 60 mg at 09/30/[address] 40 mg tab(s) (PROTONIX) 40 mg ORAL BID AC (0600/1600) Judith Sara Qavi 40 mg at 09/30/17 1554 digoxin 0.25 mg tab(s) (LANOXIN) 0.25 mg ORAL DAILY Judith Sara Qavi 0.25 mg at 09/30/17 0831 0.9% NaCl 3-5 mL 3-5 mL INTRAVENOUS q 12 H Judith Sara Qavi 5 mL at 09/30/17 2209 atorvastatin 10 mg tab(s) (LIPITOR) 10 mg ORAL AT BEDTIME Judith Sara Qavi 10 mg at 09/30/17 2207 fenofibrate 200 mg cap(s) (LOFIBRA) 200 mg ORAL DAILY WITH BREAKFAST Judith Sara Qavi 200 mg at 09/30/17 0829 Prescriptions Prior to Admission: cyanocobalamin, vitamin B-12, (B-12 COMPLIANCE) 1,000 mcg/mL kit Take 1,000 mcg by mouth once daily. Disp: Rfl: DIGOXIN, BULK, MISC 0.25 mg once daily. Disp: Rfl: docusate sodium (COLACE) 100 mg capsule Take 100 mg by mouth once daily. Disp: Rfl: DULoxetine (CYMBALTA) 60 mg capsule Take 60 mg by mouth once daily. Disp: Rfl: furosemide (LASIX) 40 mg tablet Take 40 mg by mouth once daily. Disp: Rfl: gabapentin (NEURONTIN) 600 mg tablet Take 1,200 mg by mouth once daily. Disp: Rfl: potassium chloride (KLOR-CON 10 ORAL) Take 20 mEq by mouth twice daily. Disp: Rfl: metoprolol tartrate, short acting, (LOPRESSOR) 100 mg tablet Take 25 mg by mouth once daily. Disp: Rfl: pramipexole (MIRAPEX) 0.5 mg tablet Take 0.5 mg by mouth three times daily. Disp: Rfl: pravastatin (PRAVACHOL) 40 mg tablet Take 40 mg by mouth once daily. Disp: Rfl: fenofibrate nanocrystallized (TRICOR) 145 mg tablet Take 145 mg by mouth once daily. Disp: Rfl: rivaroxaban (XARELTO) 20 mg tablet Take 20 mg by mouth daily with dinner. Disp: Rfl: tiotropium bromide (SPIRIVA RESPIMAT INHALATION) Inhale as instructed. Disp: Rfl: valsartan (DIOVAN) 40 mg tablet Take 40 mg by mouth once daily. Disp: Rfl: ASPIR-81 81 MG TAB Take one(1) tablet daily. Disp: Rfl: 0 09/29/2017 at Unknown time FOLIC ACID 1 MG TAB Take one(1) tablet daily. Disp: Rfl: 0 09/29/2017 at Unknown time Social History Marital status: Spouse name: Years of education: Number of children: Social History Main Topics Smoking status: Former Smoker Packs/day: 0.00 Years: 0.00 Smokeless status: Never Used Comment: Quit in 1992 FAMILY HISTORY Problem Relation Age of Onset - Cancer Brother - Cancer Maternal Grandfather - Heart Maternal Grandfather - Hypertension Mother - Hypertension Father - Stroke Paternal Grandmother PAST SURGICAL HISTORY Procedure Laterality Date - ANGIOPLASTY 02/14/06 Open Heart Surgery - CABG, ARTERY-VEIN, THREE 02/16/2006 CABG, three grafts ROS: All of the following reviewed and negative except as noted below: GENERAL: Feels much better with blood transfusion therapy, including improved fatigue, and weakness HEENT: no headache, vision changes, eye discomfort, hearing change, ear discomfort, sinus pain, nasal discharge or congestion, oral lesions, soreness, dental problem NECK: no adenopathy, discomfort, change in ROM CHEST: Significant orthopnea and dyspnea on exertion prior to admission, may be improving already HEART: no chest pain, palpitations, syncope ABDOMEN: no nausea, vomiting, constipation, diarrhea, abdominal pain : no dysuria, urgency, frequency, history of stones, incontinence NEURO: no confusion or alteration in consciousness, slurred speach, seizure, focal weakness EXTREMITIES: no new pain, edema, change in ROM HEME: Significant epistaxis, and melena, 4 weeks prior to admission. Had also been on iron therapy. PSYCH: no depression, anxiety, agitation PHYSICAL EXAMINATION: see below for new or abnormal findings BP (!) 110/45 Pulse 85 Temp 36.6 ?C (97.9 ?F) (Oral) Resp 18 Ht 172.7 cm (5' 8) Wt 127 kg (280 lb) SpO2 98% BMI 42.57 kg/m2 BMI 42.57 kg/(m2) GENERAL: well nourished and developed; no acute distress; alert and oriented x 3; intact judgement and insight HEENT: no evidence of trauma; cranial nerves intact; eyes clear EOMI; no hearing deficits apparent; nasal passages unremarkable; throat and mucous membranes clear NECK: supple without lymphadenopathy; no JVD; no thyromegaly CHEST: clear bilaterally to auscultation; normal chest movement; no rales or rhonchi HEART: irregular rate and rhythm, normal S1 and S2, no murmurs, clicks, rubs, or gallops ABDOMEN: soft; nondistended; bowel sounds present; no hepatomegaly; no splenomegaly; no tenderness EXTREMITIES: no evidence of clubbing; no cyanosis; no deformity; no joint effusion; no edema NEURO: cranial nerves intact; no focal deficits; no confusion; no tremor; sensorium normal SKIN: no rash; no skin breakdown; no decubitus lesions. Very pale HEME: no bruising; no adenopathy. No obvious bleeding PSYCH: no evidence of depression; no anxiety; no agitation; no apparent hallucinations ABNORMAL/NEW FINDINGS: NONE CBC: Recent Labs 10/01/17 0349 09/30/17 0630 WBC -- -- 4.09* RBC -- -- 2.13* HB 7.4* < > 6.7* HCT 22.4* < > 21.1* PLT -- -- 51* MCV -- -- 99.1* MCH -- -- 31.5 MPV -- -- 11.6 RDW -- -- 21.1* < > = values in this interval not displayed. CMP: Recent Labs 09/30/17 0630 NA 138 K 4.0 CHLOR 110* CO2 26 BUN 8 CREAT 0.81 GLUC 102* CA 7.8* ANION 6* Heme: No results for input(s): RETICP, ABSRETIC, LD, VAN, FE, TIBC, TRANSFERSAT in the last 24 hours. ASSESSMENT ACTIVE PROBLEM LIST Gib (Gastrointestinal Bleeding) Blood Loss Anemia Chronic Anticoagulation Atrial Fibrillation (Hcc) Primary Lung Adenocarcinoma, Left (Hcc) Coronary Artery Disease Involving [place] Heart Without Angina Pectoris Anemia Melena Positive Fecal Occult Blood Test PLAN: Agree with aggressive transfusion therapy H/h stable, will dc q 8 hr but will obtain a CBC at noon and then daily. Need to also monitor plt and wbc given recent chemotherapy and need to make decisions regarding anticoagulation. -agrees to another unit of PRBC, still dyspneic w exertion and orthopneic Agree with discontinuation of Xarelto, and aspirin. Xarelto will continue to be held at discharge, until he follows up with his local oncologist. Possible resumption of aspirin before discharge. Appreciate ENT evaluation, await GI evaluation to be performed today. Chemotherapy will be on hold Please note that the ultimate goal of his chemotherapy for lung cancer is for cure. Therefore, favor very aggressive therapy and intervention as needed. Reasonably comfortable, we'll follow along with you Bonnie Falcon M.D. HGB Collected: 10/01/2017 Status: F Source: [facility] 3:49 AM HEALTH SYSTEM REPOSITORY TYPE CODE TESTS RESULT OUT OF RANGE REFERENCE UNITS LAB HGBI(LOINC) 13.7-17.5 g/dL Low Hgb 7.4 Performed By: #### HGBI #### [place] [address] HCT Collected: 10/01/2017 Status: F Source: [facility] 3:49 AM HEALTH SYSTEM REPOSITORY TYPE CODE TESTS RESULT OUT OF RANGE REFERENCE UNITS LAB HCTI(LOINC) 40.1-51.0 % Low Hct 22.4 Performed By: #### HCTI #### [place] [address] OPERATIVE NO Observed: 10/01/2017 Status: COMPLETED Source: [facility] 12:00 AM CLINIC OTHER CAMPUS REPOSITORY HNO ID: [id number] Author: Rio Jordan Service: Gastroenterology Author Type: Physician Type: Operative Report Filed: 10/02/2017 9:52 PM Note Text: [facility] - Operative Report SURGEON: Rio Jordan MD PATIENT NAME: JV DURHAM CSN: [id number] DATE OF SURGERY: 10/01/2017 DATE OF : 1945 SEX/AGE: M/72 PATIENT TYPE: I HOSP SVC: INTM LOCATION: [facility] DATE OF SURGERY: 10/01/2017 SURGEON: Rio Jordan MD PROCEDURE PERFORMED: EGD with APC application. PREOPERATIVE DIAGNOSIS: Anemia secondary to recent gastrointestinal bleed. POSTOPERATIVE DIAGNOSIS: Two small arteriovenous malformations, distal antrum, with slow oozing. The scope was advanced to the second part of duodenum. COMPLICATIONS NOTED: None. MEDICATIONS GIVEN: MAC sedation. INSTRUMENT USED: Olympus GIF video endoscope. INDICATION FOR THE PROCEDURE: This 72-year-old male patient was transferred from [facility] yesterday with history of GI bleeding with slow ooze. He had dropped his hemoglobin to 7.2 g. The patient has underlying history of lung cancer, which has been resected and apparently cured and has received 4 cycles of chemotherapy for it. TECHNIQUE: Informed consent was obtained. The patient was placed in left lateral position. An IV sedation was given by FERTILIZING MACHINE OPERATOR. Vital signs were monitored throughout the procedure. An Olympus video endoscope was passed per oral route into the esophagus and advanced down to the second part of duodenum. Retroflexion was performed in the stomach to see cardia, fundus clearly. Two small fresh blood clots were noted at the antrum along the anterolateral wall. The clots were suctioned out and a small amount of oozing was noted from what appeared to be thin, slender, small AV malformations. Both of them were coagulated with argon plasma coagulation. The excess air was suctioned out. Photographic documentation was done and the scope gradually withdrawn through the esophagus. FINDINGS: Normal pharynx and hypopharynx with no evidence of posterior pharyngeal blood coming from the nasal passages. Next, the esophagus was noted to be normal with no inflammation, ulceration or mass lesion. Z-line was noted at 46 cm from lips. Stomach was noted to have normal cardia, fundus, body and proximal antrum. At distal antrum, 2 small fresh blood clots were noted. After removing them, there was small continuous ooze of fresh blood. No definite erosions were noted associated with them. No visible vessels were seen otherwise. Duodenum was noted to be normal with no ulcers, erosions, AV malformations or villous atrophy. RECOMMENDATION: 1. The patient can go back on PPI therapy in low dose. 2. The patient can be started back on anticoagulation. Rio Jordan MD Gastroenterology GM:jyoti /[id number] cc:MD Fany Mclaughlin Gunjan Joce, DO HGB Collected: 09/30/2017 Status: F Source: [facility] 6:50 PM HEALTH SYSTEM REPOSITORY TYPE CODE TESTS RESULT OUT OF RANGE REFERENCE UNITS LAB HGBI(LOINC) 13.7-17.5 g/dL Low Hgb 7.2 Performed By: #### HGBI #### [facility] [address], [place] [address] HCT Collected: 09/30/2017 Status: F Source: [facility] 6:50 PM HEALTH SYSTEM REPOSITORY TYPE CODE TESTS RESULT OUT OF RANGE REFERENCE UNITS LAB HCTI(LOINC) 40.1-51.0 % Low Hct 22.4 Performed By: #### HCTI #### [facility] [address], [place] [address] PROGRESS Observed: 09/30/2017 Status: COMPLETED Source: [facility] 12:42 PM CLINIC OTHER CAMPUS REPOSITORY O ID: [id number] Author: Luis Lui MD Service: Hospital Medicine Author Type: Physician Type: Progress Notes Filed: 09/30/2017 12:47 PM Note Text: INTERNAL MEDICINE PROGRESS NOTE SERVICE DATE: 09/30/2017 SERVICE TIME: 9 am INTERVAL HISTORY: No overnight events Feeling better No further bleed MEDICATIONS: Current hospital medications: acetaminophen 650 mg tab(s) (TYLENOL) 650 mg ORAL q 6 H PRN ondansetron (PF) 4 mg injection (ZOFRAN) 4 mg INTRAVENOUS q 6 H PRN sodium chloride 0.65 % 1 [place] (AYR, OCEAN) 1 [place] EACH NOSTRIL QID sodium chloride-aloe vera topical nasal gel (AYR GEL w/ALOE) INTRANASAL QID gabapentin 1,200 mg cap(s) (NEURONTIN) 1,200 mg ORAL DAILY valsartan 40 mg tab(s) (DIOVAN) 40 mg ORAL DAILY pramipexole 0.5 mg tab(s) (MIRAPEX) 0.5 mg ORAL TID metoprolol tartrate (short acting) 25 mg tab(s) (LOPRESSOR) 25 mg ORAL q 12 H furosemide 40 mg tab(s) (LASIX) 40 mg ORAL DAILY DULoxetine 60 mg cap(s) (CYMBALTA) 60 mg ORAL DAILY pantoprazole DR 40 mg tab(s) (PROTONIX) 40 mg ORAL BID AC (0600/1600) digoxin 0.25 mg tab(s) (LANOXIN) 0.25 mg ORAL DAILY 0.9% NaCl 3-5 mL 3-5 mL INTRAVENOUS q 12 H atorvastatin 10 mg tab(s) (LIPITOR) 10 mg ORAL AT BEDTIME fenofibrate 200 mg cap(s) (LOFIBRA) 200 mg ORAL DAILY WITH BREAKFAST PHYSICAL EXAM: VITAL SIGNS 09/30/17 0645 09/30/17 0710 09/30/17 0933 09/30/17 1153 BP: 133/53 125/81 126/71 Pulse: 94 92 94 Resp: Temp: 36.6 ?C (97.9 ?F) 36.8 ?C (98.2 ?F) 36.3 ?C (97.3 ?F) TempSrc: Oral Oral Oral SpO2: 96% 98% 98% 98% Weight: Height: Temp (24hrs), Av.6 ?C (97.9 ?F), Min:36.3 ?C (97.3 ?F), Max:36.8 ?C (98.2 ?F) INTAKE/OUTPUT Intake/Output Summary (Last 24 hours) at 09/30/17 1242 Last data filed at 09/30/17 0933 Gross per 24 hour Intake 1301 ml Output 450 ml Net 851 ml General: Awake and alert, in no distress, cooperative Neck: Supple Cardiac: RRR, S1S2 with no MGR Lungs: Clear to auscultation bilaterally Abdomen: Soft non-tender, non-distended, normal bowel sounds Extremities: No edema. LAB DATA: CBC: Recent Labs 09/30/17 1145 09/30/17 0630 09/29/17 2330 WBC -- 4.09* 4.76 HB 7.6* 6.7* 4.6* HCT 23.7* 21.1* 14.8* PLT -- 51* 47* MCV -- 99.1* 101.4* COAG: No results for input(s): APTT, INR in the last 168 hours. BMP: Recent Labs 09/30/17 0630 09/30/17 0028 GLUC 102* 96 NA 138 141 K 4.0 4.1 CHLOR 110* 110* CO2 26 25 ANION 6* 10 BUN 8 8 CREAT 0.81 0.85 CHEM: Recent Labs 09/30/17 0630 09/30/17 0028 ALB -- 2.8* TPROT -- 5.3* CA 7.8* 8.3* ASSESSMENT AND PLAN: # Acute on Chronic anemia - secondary to GIB vs epistaxis vs chemotherapy. Holding xarelto. Transfusing PRBCs Monitor H/H Q8H for next 24 hours GI consulted, c/w PPI for EGD tomorrow ENT consulted,Local care, AVOID NASAL CANULA Heme/Onc consulted # CAD s/p CABG - con't metoprolol, statin, valsartan. Stable. ASA on hold. # COPD - stable Con't bronchodilators PRN. # A.Fib - Rate controlled with metoprolol. Holding OAC due to GI Bleed ? Code Status: Full Code. Ok for intubation for short term only ? ? VTE Prophylaxis: SCDs SIGNATURE: LUIS LUI MD PATIENT NAME: Jv Durham Jr. DATE: September 30, 2017 TIME: 12:42 PM HCT Collected: 09/30/2017 Status: F Source: [facility] 11:45 AM HEALTH SYSTEM REPOSITORY TYPE CODE TESTS RESULT OUT OF RANGE REFERENCE UNITS LAB HCTI(LOINC) 40.1-51.0 % Low Hct 23.7 Performed By: #### HCTI #### [place] [address] HGB Collected: 09/30/2017 Status: F Source: [facility] 11:45 AM HEALTH SYSTEM REPOSITORY TYPE CODE TESTS RESULT OUT OF RANGE REFERENCE UNITS LAB HGBI(LOINC) 13.7-17.5 g/dL Low Hgb 7.6 Performed By: #### HGBI #### [place] [address] CONSULT PROG Observed: 09/30/2017 Status: COMPLETED Source: [facility] 11:33 AM CLINIC OTHER CAMPUS REPOSITORY HNO ID: [id number] Author: Elroy Hough Service: Otolaryngology Author Type: Physician Type: Consult Progress Note Filed: 09/30/2017 11:43 AM Note Text: INITIAL CONSULT OTOLARYNGOLOGY SERVICE DATE: 09/30/2017 SERVICE TIME: 11:33 AM Jv Durham Jr. is a 72 year old male who is seen at the request of Dr. Arechiga for evaluation of Epistaxis. My findings and recommendations will be communicated to the referring provider via the shared electronic medical record. Subjective CHIEF COMPLAINT: Nosebleeds and obstruction HPI: This is a 72 year old male with PHX of A.jon on Xarelto, Lung cancer undergoing chemotherapy, recurrent epistaxis s/p packing, CAD s/p CABG, CHF, COPD presents with complaints of SOB, fatigue, and melanotic stools X3 days. . Patient reports chronic aspirin and Xarelto use. No recent NSAID use. Denies any abdominal pain, fevers, chills Patient found to have Hgb of 5 with positive FOBT transferred to [facility] due to no GI service available at [facility]. Of note patient also states has noted some hematuria during this time. The patient describes use of nasal cannula at home and chronic nose bleeding and scabbing with obstruction that he clears and he uses netipot and has continued difficulty and is currently admitted with Hb 4.6 and now 6.7 and had another transfusion. He is not actively bleeding at this time. PAST MEDICAL HISTORY Diagnosis Date - Coronary atherosclerosis of unspecified type of vessel, alturas or graft Coronary artery disease - Essential hypertension, benign PAST SURGICAL HISTORY Procedure Laterality Date - ANGIOPLASTY 02/14/06 Open Heart Surgery - CABG, ARTERY-VEIN, THREE 02/16/2006 CABG, three grafts FAMILY HISTORY Problem Relation Age of Onset - Cancer Brother - Cancer Maternal Grandfather - Heart Maternal Grandfather - Hypertension Mother - Hypertension Father - Stroke Paternal Grandmother Social History Substance Use Topics - Smoking status: Former Smoker - Smokeless tobacco: Never Used Comment: Quit in 1992 - Alcohol use Not on file cyanocobalamin, vitamin B-12, (B-12 COMPLIANCE) 1,000 mcg/mL kit Take 1,000 mcg by mouth once daily. DIGOXIN, BULK, MISC 0.25 mg once daily. docusate sodium (COLACE) 100 mg capsule Take 100 mg by mouth once daily. DULoxetine (CYMBALTA) 60 mg capsule Take 60 mg by mouth once daily. furosemide (LASIX) 40 mg tablet Take 40 mg by mouth once daily. gabapentin (NEURONTIN) 600 mg tablet Take 1,200 mg by mouth once daily. potassium chloride (KLOR-CON 10 ORAL) Take 20 mEq by mouth twice daily. metoprolol tartrate, short acting, (LOPRESSOR) 100 mg tablet Take 25 mg by mouth once daily. pramipexole (MIRAPEX) 0.5 mg tablet Take 0.5 mg by mouth three times daily. pravastatin (PRAVACHOL) 40 mg tablet Take 40 mg by mouth once daily. fenofibrate nanocrystallized (TRICOR) 145 mg tablet Take 145 mg by mouth once daily. rivaroxaban (XARELTO) 20 mg tablet Take 20 mg by mouth daily with dinner. tiotropium bromide (SPIRIVA RESPIMAT INHALATION) Inhale as instructed. valsartan (DIOVAN) 40 mg tablet Take 40 mg by mouth once daily. ASPIR-81 81 MG TAB Take one(1) tablet daily. FOLIC ACID 1 MG TAB Take one(1) tablet daily. ALLERGIES No Known Allergies COMPLETE REVIEW OF SYSTEMS: Negative except HPI Objective PHYSICAL EXAM: BP 126/71 Pulse 94 Temp 36.3 ?C (97.3 ?F) (Oral) Resp 18 Ht 172.7 cm (5' 8) Wt 127 kg (280 lb) SpO2 98% BMI 42.57 kg/m2 General Appearance: Well-developed, well-nourished, pleasant coop white male in [facility]. Communication: Reasonable historian whose voice is normal. Psych/Mental Status: Oriented x 3 and a normal affect. Head/Face: Normocephalic, without evidence of trauma. There are no palpable lesions in the scalp. Facial muscles appear to be functioning normally. Sinuses are nonerythematous and nontender. Temporomandibular joints move satisfactorily and are nontender. Eyes: Extraocular muscles appear intact. Salivary Glands: Parotid/Julián's-normal to palpation without evidence of duct abnormality.Submandibular/Tyshawn's-without evidence of palpable abnormality and no visible duct lesions. Ears: External ears appear normally formed. Canals appear of normal caliber without inflammatory changes. Minimal cerumen. Visualized tympanic membranes show some chronic changes on otoscopic exam. Nose: External nose is grossly normal. Anterior rhinoscopy finds the mucous membranes to be dry with dried blood clots bilat and obstructing right completely. There is mild septal deviation with prominence of the inferior turbinates. Oral Cavity/Oropharynx: The mucous membranes of the pharynx, lips and tongue appear grossly normal. Dentition is unremarkable. Palate and floor of mouth are intact. Tonsils are atrophic. No blood in pharynx Neck: There are no masses, adenopathy, or thyromegaly and the trachea is midline. The obstructive dried clot was completely obstructing right nasal passage and removed and ant. Septum bloody and silver nitrate used to cauterize. Airway improved [id number] DATA: Diagnostic tests reviewed for today's visit: Most recent labs Assessment Active Problems: GIB (gastrointestinal bleeding) POA: Yes Assessment AND Plan: NA Blood loss anemia POA: Yes Assessment AND Plan: CONTROL EPISTAXIS Chronic anticoagulation POA: Yes Assessment AND Plan: NA Atrial fibrillation (HCC) POA: Yes Assessment AND Plan: NA Primary lung adenocarcinoma, left (HCC) POA: No Assessment AND Plan: NA Coronary artery disease involving alturas heart without angina pectoris POA: Yes Assessment AND Plan: NA Anemia Assessment AND Plan: NA Melena Assessment AND Plan: NA Positive fecal occult blood test Assessment AND Plan: NA EPISTAXIS- LOCAL CARE AND CAUTERIZED RIGHT ANT SEPTUM AND MOIISTURIZATION ORDERED AND MUST NOT USE NASAL CANNULA FOR NOW, ONLY FACE MASK HUMIDIFIED O2. Resolved Problems: * No resolved hospital problems. * SIGNATURE: Elroy Hough MD PATIENT NAME: Jv Durham Jr. DATE: September 30, 2017 TIME: 11:33 AM PAGER/CONTACT #: [phone] NUTRITION Observed: 09/30/2017 Status: COMPLETED Source: [facility] 10:[address] [facility] OTHER CAMPUS REPOSITORY O ID: [id number] Author: Ryann Rangel Service: Nutrition Therapy Author Type: Registered Dietitian Type: Nutrition Filed: 09/30/2017 3:13 PM Note Text: NUTRITION THERAPY INITIAL ASSESSMENT SERVICE DATE: 09/30/2017 SERVICE TIME: 11:37 RECOMMENDED MALNUTRITION DIAGNOSIS: NO MALNUTRITION IDENTIFIED NUTRITION CARE PLAN: Problem, Etiology and Signs/Symptoms: Increased nutrient needs calorie/protein related to increased physiological demand as evidenced by pt with lung cancer dx. Intervention: 1. Encouraged adequate oral intake to meet estimated needs Monitor and Evaluation: Goal: Meet >75% of estimated needs Monitor fluid/electrolyte balance Monitor labs, I/Os, vital signs, weight Discharge Nutrition Recommendations: Diet: Heart Healthy Reason for Assessment: MST 2 Per HPI: This is a 72 year old male with PHX of A.fib on Xarelto, Lung cancer undergoing chemotherapy, recurrent epistaxis s/p packing, CAD s/p CABG, CHF, COPD presents with complaints of SOB, fatigue, and melanotic stools X3 days. . Patient reports chronic aspirin and Xarelto use. No recent NSAID use. Denies any abdominal pain, fevers, chills Patient found to have Hgb of 5 with positive FOBT transferred to [facility] due to no GI service available at [facility]. Of note patient also states has noted some hematuria during this time Per GI plan is for EGD tomorrow. Active Hospital Problems Diagnosis Date Noted - Blood loss anemia 09/30/2017 - Chronic anticoagulation 09/30/2017 - Atrial fibrillation (HCC) 09/30/2017 - Primary lung adenocarcinoma, left (HCC) 09/30/2017 Overview Note: Hx of wedge resection left lung at [facility] 06/01. Adjuvant chemotherapy-probable carboplatin/alimta - Coronary artery disease involving alturas heart without angina pectoris 09/30/2017 - GIB (gastrointestinal bleeding) 09/29/2017 - Anemia 09/29/2017 Overview Note: Added automatically from request for surgery [id number] - Melena 09/29/2017 Overview Note: Added automatically from request for surgery [id number] - Positive fecal occult blood test 09/29/2017 Overview Note: Added automatically from request for surgery [id number] PAST MEDICAL HISTORY Diagnosis Date - Coronary atherosclerosis of unspecified type of vessel, alturas or graft Coronary artery disease - Essential hypertension, benign PAST SURGICAL HISTORY Procedure Laterality Date - ANGIOPLASTY 02/14/06 Open Heart Surgery - CABG, ARTERY-VEIN, THREE 02/16/2006 CABG, three grafts Present Diet Order: Heart Healthy 2 gm Na Enteral Access: none Nutritional Intake Prior to Admission: >75% estimated energy needs over the past 3 month(s). Met with pt and family in regards to patient's nutritional intake. Pt reports he currently has a good appetite. Pt reports he did lose weight awhile ago, but recently weight has been stable. Pt reports eating at least 3 meals a day and stated he ate 100% of breakfast this morning. Pt's reported that he has been eating better over the past few months. GI symptoms: taste changes Abdominal Exam: abdomen is soft and bowel sounds are normal per clinical documentation Is the patient having any pain that is interfering with oral/enteral intake? No ANTHROPOMETRICS Height: 172.7 cm (5' 8) Admission Weight: 127 kg (280 lb) Current Weight: 127 kg (280 lb) Body mass index is 42.57 kg/(m2). class 3 obesity Weight has decreased by 7.3 kg from 05/19/17 to 06/05/17 representing 5.3 % weight change. Weight has decreased by 4 kg over 4 months representing 3.1 % weight change. Last Wt 09/30/17 : 127 kg (280 lb) 06/05/17 : 131 kg - care everywhere 05/19/17 : 138.3 kg -care everywhere 04/23/17 : 137 kg - care everywhere 04/17/17 : 136.5 kg - care everywhere 07/21/06 : 114.3 kg (252 lb) [place] Body Weight: 70kg Resting Metabolic Rate: 1997 Estimated kilocalorie needs: 3689-3636 kilocalories determined by 30-35 kcal/kg Estimated protein needs: 77-105 grams determined by 1.1-1.5 g/kg [place] weight Estimated fluid needs: 2100 milliliters based on 1 mL per kcal NUTRITION FOCUSED PHYSICAL EXAM: Subcutaneous Fat Loss Orbital No fat loss Triceps No fat loss Mid-axillary at the iliac crest No fat loss Muscle Loss Locations: Temporalis No muscle loss Pectoralis Unable to determine at this time Deltoids Unable to determine at this time Interosseous No muscle loss Latissimus dorsi, trapezius Unable to determine at this time Quadriceps Unable to determine at this time Gastrocnemius Unable to determine at this time Unable to determine some areas of muscle due to pt with adipose tissue. Note BMI 42.57 - Obesity Class III Potential micronutrient deficiency revealed in: No deficiency identified Edema: Yes Lower extremities Mild 1+ and Generalized Ascites: No Assessment of Functional Status: Functional capacity is unrelated to nutrition status Temperature Max in 24 hours: Temp (24hrs), Av.6 ?C (97.9 ?F), Min:36.3 ?C (97.3 ?F), Max:36.8 ?C (98.2 ?F) BP 126/71 Pulse 94 Temp 36.3 ?C (97.3 ?F) (Oral) Resp 18 Ht 172.7 cm (5' 8) Wt 127 kg (280 lb) SpO2 98% BMI 42.57 kg/m2 Recent Labs 09/30/17 0630 09/30/17 0028 GLUC 102* 96 BUN 8 8 CREAT 0.81 0.85 NA 138 141 K 4.0 4.1 CHLOR 110* 110* CO2 26 25 ALB -- 2.8* HB 6.7* -- HCT 21.1* -- WBC 4.09* -- Potential Signs of Inflammation: hyperglycemia and hypoalbuminemia, GI bleed ALLERGIES No Known Allergies Current Facility-Administered Medications: acetaminophen 650 mg tab(s) (TYLENOL) 650 mg ORAL q 6 H PRN ondansetron (PF) 4 mg injection (ZOFRAN) 4 mg INTRAVENOUS q 6 H PRN gabapentin 1,200 mg cap(s) (NEURONTIN) 1,200 mg ORAL DAILY valsartan 40 mg tab(s) (DIOVAN) 40 mg ORAL DAILY pramipexole 0.5 mg tab(s) (MIRAPEX) 0.5 mg ORAL TID metoprolol tartrate (short acting) 25 mg tab(s) (LOPRESSOR) 25 mg ORAL q 12 H furosemide 40 mg tab(s) (LASIX) 40 mg ORAL DAILY DULoxetine 60 mg cap(s) (CYMBALTA) 60 mg ORAL DAILY pantoprazole DR 40 mg tab(s) (PROTONIX) 40 mg ORAL BID AC (0600/1600) digoxin 0.25 mg tab(s) (LANOXIN) 0.25 mg ORAL DAILY 0.9% NaCl 3-5 mL 3-5 mL INTRAVENOUS q 12 H atorvastatin 10 mg tab(s) (LIPITOR) 10 mg ORAL AT BEDTIME fenofibrate 200 mg cap(s) (LOFIBRA) 200 mg ORAL DAILY WITH BREAKFAST Intake/Output 09/29/17 0700 - 09/30/17 0659 09/30/17 0700 - 10/01/17 0659 Intake (ml) 982 319 Output (ml) 450 -- Net (ml) 532 319 MNT Billing Type: Initial Assess/15 min 4 units SIGNATURE: Ryann Rangel RD PATIENT NAME: Jv Durham DATE: September 30, 2017 TIME: 10:24 AM PAGER: [id number] CASE MGT INIT Observed: 09/30/2017 Status: COMPLETED Source: [facility] 10:01 AM CLINIC OTHER CAMPUS REPOSITORY HNO ID: [id number] Author: Dalia (Rn) [place] Denney Service: Care Management Author Type: Registered Nurse Type: [place] Initial Assessment Filed: 09/30/2017 10:25 AM Note Text: CARE MANAGEMENT: ASSESSMENT AND DISCHARGE PLAN SERVICE DATE: 09/30/2017 SERVICE TIME: 1000 PRIMARY CARE PHYSICIAN: Fany Hobson MD ADMISSION STATUS: Inpatient Needs Prior to Discharge: To Be Determined;OT/PT Evaluation;Other: See Comment (Pt on 3 L NC (uses 2.5 L continuously at home). 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 Health Issues Impacting Discharge Plan: Chronic COPD Last Admission Date: none Is this Within the Past 30 days? No Advance Directive: Current Advance Directive: None Magnetic Locater Assisted with AD Completion: No Unable to Assist Due To:: (Pt declines SW c/s for HCPOA) Health Literacy: 1. How often do you need to have someone help you when you read instructions, pamphlets, or other written material from your doctor or pharmacy? Sometimes - 3 2. How confident are you filling out medical forms by yourself? Somewhat - 3 If Patient scores > 3 on either question, the following interventions were put into place: Forms of communication used with patient and family and Sit with Patient FUNCTIONAL AND COGNITIVE/BEHAVIORAL PRIOR TO ADMISSION: Baseline Mental Status: Alert AND Oriented, Person, Place , Time and Situation Functional Status: Needs Assistance Does Patient Currently Receive Any Community Services or Home Care? None [facility] O2 suppllier Equipment Prior to Admission: Cane - Straight Oxygen 2.5 liters per minute Walker Wheelchair Has the Patient Been in a Jail Facility in the Past 30 days? No SOCIAL: Living Arrangement: Home Lives With: Spouse Financial Resources: Retired Primary Contact: Extended Emergency Contact Information Primary Emergency Contact: Marco Durham Mobile Relation: Spouse Supportive: Yes Other Important Patient Contacts: None Caregiver Assessment: Caregiver is ready, willing and able to meet the patient's needs as recommended by the inter-professional team? Yes Patient's transition needs and plan for meeting these needs: Does the patient have an acute stroke diagnosis, or has the patient had a stroke during this admission? No Medication Adherence: I am convinced of the importance of my prescription medication: Agree completely - 0 I worry that my prescription medication will do more harm than good to me Disagree completely - 0 I feel financially burdened by my [id number] expenses for my prescription medication: Disagree completely - 0 Patient is categorized as low risk < 2 Are you interested in bedside delivery of your medications? No Food Concerns: In the Last Month, Have You had Trouble Getting Food? No trouble getting food During the Last Month, Have You Worried Whether Your Food Would Run Out Before You Had Enough Money to Buy More? No Is the Patient Psychosocially Complex? No ASSESSMENT AND PLAN: Medical Needs: Cancer - active treatment/follow up , Durable Medical Equipment and Obesity Psychosocial Needs: None FREEDOM OF CHOICE EXPLAINED: N/A POTENTIAL TRANSITION PLANS Home To Be Determined Chart reviewed. Met w/ patient. Pt lives w/ assists w/ all ADLS. One story home, one step to enter. Bathroom wheel chair accessible. +RX cov, +DME. Active w/ [facility] and [facility] on [address] in [place]. Follow for O2 needs. May need PT/OT before DC. Plan now remains return to home w/ spouse at DC. CM to follow for transitional needs. SIGNATURE: Dalia Denney RN PATIENT NAME: Jv Durham Jr. DATE: September 30, 2017 TIME: 10:01 AM PAGER/CONTACT #: [id number] OCCULT [phone] Collected: 09/30/2017 Status: F Source: [facility] 9:45 AM HEALTH SYSTEM REPOSITORY TYPE CODE TESTS RESULT OUT OF RANGE REFERENCE UNITS LAB OCCU2(LOIN NEGATIVE C) Abnormal Fecal POSITIVE Occult Blood Performed By: #### OCCU2 #### [place] [id number] CONSULT Observed: 09/30/2017 Status: COMPLETED Source: [facility] 9:13 AM CLINIC OTHER CAMPUS REPOSITORY HNO ID: [id number] Author: Shay Zavala Service: Gastroenterology Author Type: Nurse Practitioner Type: Consults Filed: 09/30/2017 9:41 AM Note Text: CONSULT: GASTROENTEROLOGY SERVICE SERVICE DATE: 09/30/2017 SERVICE TIME: 9:14 AM REASON FOR CONSULT: GIB REQUESTING PHYSICIAN: Judith Qavi PRIMARY CARE PHYSICIAN: Fany Hobson MD Subjective Mr. Durham is a 72 year old male who presented from [place] for GIB. He stated he normally gets blood transfusions prior to getting chemotherapy. His last dose of chemotherapy was 2 weeks ago. He had lab work done last week for evaluation of his anemia. He believes at that time his hemoglobin was 8.1. He started to have fatigue, SOB, and melanotic stools for about 3 days. He denied abdominal pain, hematochezia, hematemesis, nausea, vomiting, constipation, or diarrhea. He tried to get a sooner appointment with a provider due to his symptoms. Once he informed them of the melena stools he was instructed to proceed to the ED. His hemoglobin was 5 with positive FOBT at [place] so he transferred to [facility] for GI consult. His last colonoscopy was within 5 years. He stated he never had an EGD. FUNCTIONAL STATUS: Independent PAST MEDICAL HISTORY Diagnosis Date - Coronary atherosclerosis of unspecified type of vessel, alturas or graft Coronary artery disease - Essential hypertension, benign PAST SURGICAL HISTORY Procedure Laterality Date - ANGIOPLASTY 02/14/06 Open Heart Surgery - CABG, ARTERY-VEIN, THREE 02/16/2006 CABG, three grafts FAMILY HISTORY Problem Relation Age of Onset - Cancer Brother - Cancer Maternal Grandfather - Heart Maternal Grandfather - Hypertension Mother - Hypertension Father - Stroke Paternal Grandmother Social History Substance Use Topics - Smoking status: Former Smoker - Smokeless tobacco: Never Used Comment: Quit in 1992 - Alcohol use Not on file Prescriptions Prior to Admission: cyanocobalamin, vitamin B-12, (B-12 COMPLIANCE) 1,000 mcg/mL kit Take 1,000 mcg by mouth once daily. Disp: Rfl: DIGOXIN, BULK, MISC 0.25 mg once daily. Disp: Rfl: docusate sodium (COLACE) 100 mg capsule Take 100 mg by mouth once daily. Disp: Rfl: DULoxetine (CYMBALTA) 60 mg capsule Take 60 mg by mouth once daily. Disp: Rfl: furosemide (LASIX) 40 mg tablet Take 40 mg by mouth once daily. Disp: Rfl: gabapentin (NEURONTIN) 600 mg tablet Take 1,200 mg by mouth once daily. Disp: Rfl: potassium chloride (KLOR-CON 10 ORAL) Take 20 mEq by mouth twice daily. Disp: Rfl: metoprolol tartrate, short acting, (LOPRESSOR) 100 mg tablet Take 25 mg by mouth once daily. Disp: Rfl: pramipexole (MIRAPEX) 0.5 mg tablet Take 0.5 mg by mouth three times daily. Disp: Rfl: pravastatin (PRAVACHOL) 40 mg tablet Take 40 mg by mouth once daily. Disp: Rfl: fenofibrate nanocrystallized (TRICOR) 145 mg tablet Take 145 mg by mouth once daily. Disp: Rfl: rivaroxaban (XARELTO) 20 mg tablet Take 20 mg by mouth daily with dinner. Disp: Rfl: tiotropium bromide (SPIRIVA RESPIMAT INHALATION) Inhale as instructed. Disp: Rfl: valsartan (DIOVAN) 40 mg tablet Take 40 mg by mouth once daily. Disp: Rfl: ASPIR-81 81 MG TAB Take one(1) tablet daily. Disp: Rfl: 0 09/29/2017 at Unknown time FOLIC ACID 1 MG TAB Take one(1) tablet daily. Disp: Rfl: 0 09/29/2017 at Unknown time Current hospital medications: acetaminophen 650 mg tab(s) (TYLENOL) 650 mg ORAL q 6 H PRN ondansetron (PF) 4 mg injection (ZOFRAN) 4 mg INTRAVENOUS q 6 H PRN gabapentin 1,200 mg cap(s) (NEURONTIN) 1,200 mg ORAL DAILY valsartan 40 mg tab(s) (DIOVAN) 40 mg ORAL DAILY pramipexole 0.5 mg tab(s) (MIRAPEX) 0.5 mg ORAL TID metoprolol tartrate (short acting) 25 mg tab(s) (LOPRESSOR) 25 mg ORAL q 12 H furosemide 40 mg tab(s) (LASIX) 40 mg ORAL DAILY DULoxetine 60 mg cap(s) (CYMBALTA) 60 mg ORAL DAILY pantoprazole DR 40 mg tab(s) (PROTONIX) 40 mg ORAL BID AC (0600/1600) digoxin 0.25 mg tab(s) (LANOXIN) 0.25 mg ORAL DAILY 0.9% NaCl 3-5 mL 3-5 mL INTRAVENOUS q 12 H atorvastatin 10 mg tab(s) (LIPITOR) 10 mg ORAL AT BEDTIME fenofibrate 200 mg cap(s) (LOFIBRA) 200 mg ORAL DAILY WITH BREAKFAST Allergies As of Date: 09/29/2017 (No Known Allergies) Fully Assessed 09/29/2017 COMPLETE REVIEW OF SYSTEMS: PAIN ASSESSMENT: Negative for pain, history of chronic pain, or current treatment for a chronic pain condition. GENERAL: No weight loss, malaise or fevers RESPIRATORY: See HPI CARDIOVASCULAR: Negative for chest pain, leg swelling, hypertension, CHF or palpitations GI: See HPI SKIN: Negative for lesions, rash, and itching NEURO: No history of headaches, syncope, paralysis, seizures or tremors Objective PHYSICAL EXAM: Physical Exam Performed: GENERAL: Alert and oriented X 3 in no acute distress, cooperative and following commands SKIN: Skin warm, dry, and intact LUNGS: Lungs clear to auscultation in all lobes bilaterally, 2L 02 via NC CARDIAC: Rhythm: irregularly irregular without murmur, clicks, rubs, or gallops ABDOMEN: Abdomen soft and non-tender with +BS X 4, no distention, guarding, rebound, masses or organomegaly EXTREMITIES: VELA without edema, capillary refill <3 seconds PULSES: 2+ radial BP 125/81 Pulse 92 Temp (Src) 98.2 (Oral) Resp 20 Ht 5' 8 (1.73m) Wt 280 lb (127.0kg) SpO2 98% BMI 42.58 kg/(m2). DATA: Diagnostic tests reviewed for today's visit: Ref. Range 09/29/2017 23:30 09/30/2017 06:30 WBC Latest Ref Range: 4.23 - 9.07 thou/cmm 4.76 4.09 (L) RBC Latest Ref Range: 4.63 - 6.08 mil/cmm 1.46 (L) 2.13 (L) HGB Latest Ref Range: 13.7 - 17.5 g/dL 4.6 (LL) 6.7 (LL) Hematocrit Latest Ref Range: 40.1 - 51.0 % 14.8 (LL) 21.1 (L) Platelet Count Latest Ref Range: 141 - 365 thou/cmm 47 (LL) 51 (L) MCV Latest Ref Range: 83.2 - 95.6 fl 101.4 (H) 99.1 (H) MCH Latest Ref Range: 25.7 - 32.2 pg 31.5 31.5 MCHC Latest Ref Range: 32.3 - 36.5 % 31.1 (L) 31.8 (L) MPV Latest Ref Range: 8.7 - 12.0 fl 11.7 11.6 Impression/Recommendations 1). GIB (gastrointestinal bleeding) Assessment AND Plan: Continue PPI and EGD tomorrow (discussed with Dr. Jordan, last dose of Xarelto was on 09/28/17), monitor H/H, transfuse as needed 2). Blood loss anemia/anemia 2/2 chemotherapy Assessment AND Plan: Continue PPI, monitor H/H, transfuse as needed 3). Chronic anticoagulation-on hold Assessment AND Plan: 4). Atrial fibrillation (HCC)-anticoagulation on hold 2/2 GIB Assessment AND Plan: Defer to primary 5). Primary lung adenocarcinoma, left Assessment AND Plan: Defer to oncology SIGNATURE: Shay Zavala APRN.CNP PATIENT NAME: Jv Durham Jr. DATE: September 30, 2017 TIME: 9:14 AM PAGER: CONSULT Observed: 09/30/2017 Status: COMPLETED Source: [facility] 8:18 AM CLINIC OTHER CAMPUS REPOSITORY HNO ID: [id number] Author: Bonnie Falcon Service: Palliative Care Author Type: Physician Type: Consults Filed: 09/30/2017 8:21 AM Note Text: JV DURHAM JR. 72 year old HEMATOLOGY/MEDICAL ONCOLOGY CONSULTATION: Lung Cancer, GI Bleeding, Anticoagulation with Xarelto Plus Aspirin Subjective HPI: 72-year-old male, undergoing chemotherapy for recent diagnosis of lung cancer, on anticoagulation with Xarelto and aspirin, admitted with bright red blood per rectum ?3, associated with generalized fatigue, weakness, dyspnea on exertion. He has been transferred to [facility] for GI evaluation. In relation to his lung cancer, he is status post wedge resection of his left upper [facility]. He was found to have a T2a and NX M0 malignancy, because of significant scarring, appropriate and usual node sampling could not be performed. Because of this, he has proceeded with adjuvant chemotherapy, and by his description, this is likely carboplatin/Alimta therapy. In relation to his Xarelto, this apparently is being utilized secondary to diagnosis of chronic atrial fibrillation. He also utilizes aspirin, and has been having problems with significant epistaxis 4 weeks. Current Facility-Administered Medications: acetaminophen 650 mg tab(s) (TYLENOL) 650 mg ORAL q 6 H PRN Gloria Ruiz) APRN. KiaPERFORMANCE IMPROVEMENT COORDINATOR 650 mg at 09/30/17 0338 ondansetron (PF) 4 mg injection (ZOFRAN) 4 mg INTRAVENOUS q 6 H PRN Gloria (Small Business Sales Representative) APRN. KiaPERFORMANCE IMPROVEMENT COORDINATOR 4 mg at 09/30/17 0338 gabapentin 1,200 mg cap(s) (NEURONTIN) 1,200 mg ORAL DAILY [facility] valsartan 40 mg tab(s) (DIOVAN) 40 mg ORAL DAILY [facility] pramipexole 0.5 mg tab(s) (MIRAPEX) 0.5 mg ORAL TID [facility] metoprolol tartrate (short acting) 25 mg tab(s) (LOPRESSOR) 25 mg ORAL q 12 H [facility] furosemide 40 mg tab(s) (LASIX) 40 mg ORAL DAILY [facility] DULoxetine 60 mg cap(s) (CYMBALTA) 60 mg ORAL DAILY [facility] pantoprazole DR 40 mg tab(s) (PROTONIX) 40 mg ORAL BID AC (0600/1600) [facility] Qavi 40 mg at 09/30/17 0521 digoxin 0.25 mg tab(s) (LANOXIN) 0.25 mg ORAL DAILY [facility] 0.9% NaCl 3-5 mL 3-5 mL INTRAVENOUS q 12 H [facility] atorvastatin 10 mg tab(s) (LIPITOR) 10 mg ORAL AT BEDTIME [facility] fenofibrate 200 mg cap(s) (LOFIBRA) 200 mg ORAL DAILY WITH BREAKFAST [facility] Prescriptions Prior to Admission: cyanocobalamin, vitamin B-12, (B-12 COMPLIANCE) 1,000 mcg/mL kit Take 1,000 mcg by mouth once daily. Disp: Rfl: DIGOXIN, BULK, MISC 0.25 mg once daily. Disp: Rfl: docusate sodium (COLACE) 100 mg capsule Take 100 mg by mouth once daily. Disp: Rfl: DULoxetine (CYMBALTA) 60 mg capsule Take 60 mg by mouth once daily. Disp: Rfl: furosemide (LASIX) 40 mg tablet Take 40 mg by mouth once daily. Disp: Rfl: gabapentin (NEURONTIN) 600 mg tablet Take 1,200 mg by mouth once daily. Disp: Rfl: potassium chloride (KLOR-CON 10 ORAL) Take 20 mEq by mouth twice daily. Disp: Rfl: metoprolol tartrate, short acting, (LOPRESSOR) 100 mg tablet Take 25 mg by mouth once daily. Disp: Rfl: pramipexole (MIRAPEX) 0.5 mg tablet Take 0.5 mg by mouth three times daily. Disp: Rfl: pravastatin (PRAVACHOL) 40 mg tablet Take 40 mg by mouth once daily. Disp: Rfl: fenofibrate nanocrystallized (TRICOR) 145 mg tablet Take 145 mg by mouth once daily. Disp: Rfl: rivaroxaban (XARELTO) 20 mg tablet Take 20 mg by mouth daily with dinner. Disp: Rfl: tiotropium bromide (SPIRIVA RESPIMAT INHALATION) Inhale as instructed. Disp: Rfl: valsartan (DIOVAN) 40 mg tablet Take 40 mg by mouth once daily. Disp: Rfl: ASPIR-81 81 MG TAB Take one(1) tablet daily. Disp: Rfl: 0 09/29/2017 at Unknown time FOLIC ACID 1 MG TAB Take one(1) tablet daily. Disp: Rfl: 0 09/29/2017 at Unknown time Social History Marital status: Spouse name: Years of education: Number of children: Social History Main Topics Smoking status: Former Smoker Packs/day: 0.00 Years: 0.00 Smokeless status: Never Used Comment: Quit in 1992 FAMILY HISTORY Problem Relation Age of Onset - Cancer Brother - Cancer Maternal Grandfather - Heart Maternal Grandfather - Hypertension Mother - Hypertension Father - Stroke Paternal Grandmother PAST SURGICAL HISTORY Procedure Laterality Date - ANGIOPLASTY 02/14/06 Open Heart Surgery - CABG, ARTERY-VEIN, THREE 02/16/2006 CABG, three grafts ROS: All of the following reviewed and negative except as noted below: GENERAL: Feels much better with blood transfusion therapy, including improved fatigue, and weakness HEENT: no headache, vision changes, eye discomfort, hearing change, ear discomfort, sinus pain, nasal discharge or congestion, oral lesions, soreness, dental problem NECK: no adenopathy, discomfort, change in ROM CHEST: Significant orthopnea and dyspnea on exertion prior to admission, may be improving already HEART: no chest pain, palpitations, syncope ABDOMEN: no nausea, vomiting, constipation, diarrhea, abdominal pain : no dysuria, urgency, frequency, history of stones, incontinence NEURO: no confusion or alteration in consciousness, slurred speach, seizure, focal weakness EXTREMITIES: no new pain, edema, change in ROM HEME: Significant epistaxis, and melena, 4 weeks prior to admission. Had also been on [place] therapy. PSYCH: no depression, anxiety, agitation PHYSICAL EXAMINATION: see below for new or abnormal findings BP 133/53 Pulse 94 Temp 36.6 ?C (97.9 ?F) (Oral) Resp 20 Ht 172.7 cm (5' 8) Wt 127 kg (280 lb) SpO2 96% BMI 42.57 kg/m2 BMI 42.57 kg/(m2) GENERAL: well nourished and developed; no acute distress; alert and oriented x 3; intact judgement and insight HEENT: no evidence of trauma; cranial nerves intact; eyes clear EOMI; no hearing deficits apparent; nasal passages unremarkable; throat and mucous membranes clear NECK: supple without lymphadenopathy; no JVD; no thyromegaly CHEST: clear bilaterally to auscultation; normal chest movement; no rales or rhonchi HEART: irregular rate and rhythm, normal S1 and S2, no murmurs, clicks, rubs, or gallops ABDOMEN: soft; nondistended; bowel sounds present; no hepatomegaly; no splenomegaly; no tenderness EXTREMITIES: no evidence of clubbing; no cyanosis; no deformity; no joint effusion; no edema NEURO: cranial nerves intact; no focal deficits; no confusion; no tremor; sensorium normal SKIN: no rash; no skin breakdown; no decubitus lesions. Very pale HEME: no bruising; no adenopathy. No obvious bleeding PSYCH: no evidence of depression; no anxiety; no agitation; no apparent hallucinations ABNORMAL/NEW FINDINGS: NONE CBC: Recent Labs 09/30/17 0630 WBC 4.09* RBC 2.13* HB 6.7* HCT 21.1* PLT 51* MCV 99.1* MCH 31.5 MPV 11.6 RDW 21.1* CMP: Recent Labs 09/30/17 0630 09/30/17 0028 NA 138 141 K 4.0 4.1 CHLOR 110* 110* CO2 26 25 BUN 8 8 CREAT 0.81 0.85 GLUC 102* 96 TPROT -- 5.3* CA 7.8* 8.3* TBILI -- 0.7 ALKPHOS -- 76 ALT -- 16 AST -- 14 ANION 6* 10 Heme: No results for input(s): RETICP, ABSRETIC, LD, VAN, FE, TIBC, TRANSFERSAT in the last 24 hours. ASSESSMENT ACTIVE PROBLEM LIST Gib (Gastrointestinal Bleeding) Blood Loss Anemia Chronic Anticoagulation Atrial Fibrillation (Hcc) Primary Lung Adenocarcinoma, Left (Hcc) Coronary Artery Disease Involving [place] Heart Without Angina Pectoris PLAN: Agree with aggressive transfusion therapy Agree with discontinuation of Xarelto, and aspirin Chemotherapy will be on hold Please note that the ultimate goal of his chemotherapy for lung cancer is for cure. Therefore, favor very aggressive therapy and intervention as needed. Reasonably comfortable, we'll follow along with you Bonnie Falcon M.D. CONSULT Observed: 09/30/2017 Status: COMPLETED Source: [facility] 7:48 AM CLINIC OTHER CAMPUS REPOSITORY HNO ID: [id number] Author: Rio Jordan Service: Gastroenterology Author Type: Physician Type: Consults Filed: 10/01/2017 7:58 AM Note Text: CONSULT: GASTROENTEROLOGY SERVICE SERVICE DATE: 03/22/2017 SERVICE TIME: 7:48 AM REASON FOR CONSULT: Severe anemia REQUESTING PHYSICIAN: EDGAR Mcintosh SUBJECTIVE :Mr. Durham is a 72 year old male who presented from [place] for GIB. He stated he normally gets blood transfusions prior to getting chemotherapy. His last dose of chemotherapy was 2 weeks ago. He had lab work done last week for evaluation of his anemia. He believes at that time his hemoglobin was 8.1. He started to have fatigue, SOB, and melanotic stools for about 3 days. He denied abdominal pain, hematochezia, hematemesis, nausea, vomiting, constipation, or diarrhea. He tried to get a sooner appointment with a provider due to his symptoms. Once he informed them of the melena stools he was instructed to proceed to the ED. His hemoglobin was 5 with positive FOBT at [place] so he transferred to [facility] for GI consult. His last colonoscopy was within 5 years. He stated he never had an EGD. ? . FUNCTIONAL STATUS: Independent PAST MEDICAL HISTORY Diagnosis Date - Coronary atherosclerosis of unspecified type of vessel, alturas or graft Coronary artery disease - Essential hypertension, benign PAST SURGICAL HISTORY Procedure Laterality Date - ANGIOPLASTY 02/14/06 Open Heart Surgery - CABG, ARTERY-VEIN, THREE 02/16/2006 CABG, three grafts FAMILY HISTORY Problem Relation Age of Onset - Cancer Brother - Cancer Maternal Grandfather - Heart Maternal Grandfather - Hypertension Mother - Hypertension Father - Stroke Paternal Grandmother Current Facility-Administered Medications: acetaminophen 650 mg tab(s) (TYLENOL) 650 mg ORAL q 6 H PRN Gloria (Terence) APRN. [employer] IM[employer]OV[employer] COORDINATOR 650 mg at 09/30/17 0338 ondansetron (PF) 4 mg injection (ZOFRAN) 4 mg INTRAVENOUS q 6 H PRN Gloria (Terence) APRN. [employer] IMPROVEMENT COORDINATOR 4 mg at 09/30/17 0338 sodium chloride 0.65 % 1 [place] (AYR, OCEAN) 1 [place] EACH NOSTRIL QID Elroy Hough 1 [place] at 09/30/17 1554 sodium chloride-aloe vera topical nasal gel (AYR GEL w/ALOE) INTRANASAL QID Elroy Hough gabapentin 1,200 mg cap(s) (NEURONTIN) 1,200 mg ORAL DAILY Judith Sara Qavi 1,200 mg at 09/30/17 0828 valsartan 40 mg tab(s) (DIOVAN) 40 mg ORAL DAILY Judith Sara Qavi 40 mg at 09/30/17 0828 pramipexole 0.5 mg tab(s) (MIRAPEX) 0.5 mg ORAL TID Judith Sara Qavi 0.5 mg at 09/30/17 2208 metoprolol tartrate (short acting) 25 mg tab(s) (LOPRESSOR) 25 mg ORAL q 12 H Judith Sara Qavi 25 mg at 09/30/17 2207 furosemide 40 mg tab(s) (LASIX) 40 mg ORAL DAILY Judith Sara Qavi 40 mg at 09/30/17 0830 DULoxetine 60 mg cap(s) (CYMBALTA) 60 mg ORAL DAILY Judith Sara Qavi 60 mg at 09/30/[address] 40 mg tab(s) (PROTONIX) 40 mg ORAL BID AC (0600/1600) Judith Sara Qavi 40 mg at 10/01/17 0455 digoxin 0.25 mg tab(s) (LANOXIN) 0.25 mg ORAL DAILY Judith Sara Qavi 0.25 mg at 09/30/17 0831 0.9% NaCl 3-5 mL 3-5 mL INTRAVENOUS q 12 H Judith Sara Qavi 5 mL at 09/30/17 2209 atorvastatin 10 mg tab(s) (LIPITOR) 10 mg ORAL AT BEDTIME Judith Sara Qavi 10 mg at 09/30/17 220 fenofibrate 200 mg cap(s) (LOFIBRA) 200 mg ORAL DAILY WITH BREAKFAST Judith Sara Qavi 200 mg at 09/30/17 0829 ALLERGIES No Known Allergies Fully Assessed 10/01/17 COMPLETE REVIEW OF SYSTEMS: PAIN ASSESSMENT: Negative for pain GENERAL: No weight loss, malaise or fevers HEAD AND NECK: No headache, swollen glands PULMONARY: No cough, wheezing, dyspnea on exertion, or shortness of breath CARDIOVASCULAR: No chest pain, palpitations ABDOMINAL: Per HPI NEUROLOGIC: No dizziness, lightheadedness, or weakness OPHTHALMOLOGIC: No visual abnormalities MUSCULOSKELETAL: No pain, weakness, or leg swelling SKIN: No rash OBJECTIVE PHYSICAL EXAM: 09/30/17 1153 09/30/17 1950 09/30/17 1954 10/01/17 0600 BP: (!) 117/46 (!) 110/45 126/57 Pulse: 85 78 Resp: 18 18 Temp: 36.6 ?C (97.9 ?F) 36.6 ?C (97.9 ?F) TempSrc: Oral Oral SpO2: 98% 98% 100% Weight: Height: GENERAL: Alert, no distress, cooperative HEENT: PERRLA, normocephalic, no thyromegaly, no lymphadenopathy, trachea centrally located CHEST: Clear to auscultation and percussion bilaterally CVS: RRR, no murmur/gallop ABD: Full, soft, obese, non tender, no mass or organomegaly NEURO: Cranial nerves intact, no lateralizing neurologic signs MSK: No wasting, no weakness EXT: No edema, no deformity SKIN: No jaundice, no rash DATA: Diagnostic tests reviewed for today's visit: Most recent labs and imaging results. IMPRESSION 1. Severe anemia with negative colonoscopies in the past, no EGD in the past- on anti-gagulation for A. Fib. 2. S/P Left lung cancer resection, on chemo, but not on radation therapy, 3. Chr. A. Fib- anticoagulants on temporary hold, pending EGD RECOMMENDATION/PLAN 1. EGD 2. Further diagnostic tests depending on #1 Oncology noted outlining goal of cure of lung CA noted, appreciated. SIGNATURE: Rio Jordan MD PATIENT NAME: Jv Durham Jr. DATE: 10/01/17 TIME: 7:48 AM RBC PRODUCTS Collected: 09/30/2017 Status: F Source: [facility] 6:30 AM HEALTH SYSTEM REPOSITORY TYPE CODE TESTS RESULT OUT OF REFERENCE UNITS RANGE LAB UNIT1(LOINC ) Xmatch Unit 1 see below Result Comment: Compatible Performed By: #### RBCPS #### [place] [address] BASIC PANEL Collected: 09/30/2017 Status: F Source: [facility] 6:30 AM HEALTH SYSTEM REPOSITORY TYPE CODE TESTS RESULT OUT OF REFERENCE UNITS RANGE LAB NA(LOINC) 136-145 mEq/L Sodium Blood 138 LAB K(LOINC) 3.5-5.1 mEq/L Potassium Blood 4.0 LAB CL(LOINC) 98-107 mEq/L Chloride High Blood 110 LAB CO2(LOINC) 21-32 mEq/L CO2 Blood 26 LAB GLU(LOINC) 70-99 mg/dL Glucose High Blood 102 LAB BUN(LOINC) 7-18 mg/dL BUN Blood 8 LAB CREA(LOINC 0.67-1.17 mg/dL ) Creatinine Blood 0.81 LAB CA(LOINC) 8.5-10.1 mg/dL Low Calcium Blood 7.8 LAB ANGAP(LOIN 8-16 C) Low Anion Gap 6 Performed By: #### P8 #### [place] [address] MDRD GFR Collected: 09/30/2017 Status: F Source: [facility] 6:30 AM HEALTH SYSTEM REPOSITORY TYPE CODE TESTS RESULT OUT OF RANGE REFERENCE UNITS LAB GFRFN(LOINC >60mL/min/1.73m ) 2 eGFR >60 Result Comment: If the patient is , multiply the result by 1.210. Performed By: #### GFR #### [place] [address] HEMOGRAM Collected: 09/30/2017 Status: F Source: [facility] 6:30 AM HEALTH SYSTEM REPOSITORY TYPE CODE TESTS RESULT OUT OF REFERENCE UNITS RANGE LAB WBC(LOINC) 4.23-9.07 thou/cmm Low WBC 4.09 LAB RBC(LOINC) 4.63-6.08 mil/cmm Low RBC 2.13 LAB HGB(LOINC) 13.7-17.5 g/dL Low Hgb alert 6.7 LAB HCT(LOINC) 40.1-51.0 % Low Hct 21.1 LAB MCV(LOINC) 83.2-95.6 fl MCV High 99.1 LAB MCH(LOINC) 25.7-32.2 pg MCH 31.5 LAB MCHC(LOINC 32.3-36.5 % ) Low MCHC 31.8 LAB RDW(LOINC) 11.6-14.4 % RDW High 21.1 LAB RDWSD(LOIN 36.1-45.8 fl C) RDW High SD 66.3 LAB PLT(LOINC) 141-365 thou/cmm Low Platelet 51 LAB MPV(LOINC) 8.7-12.0 fl MPV 11.6 LAB NRBCR(LOIN 0.0-0.2 % C) High Nucleated RBC % 0.7 LAB NRBCA(LOIN 0.00-0.01 thou/cmm C) High Nucleated RBC 0.03 Absolute Performed By: #### CBC1 #### [place] [address] URINALYSIS ROUTINE Collected: 09/30/2017 Status: F Source: [facility] 5:50 AM HEALTH SYSTEM REPOSITORY TYPE CODE TESTS RESULT OUT OF RANGE REFERENCE UNITS LAB GLUUR(LOIN Negative mg/dL C) Glucose Urine NEGATIVE LAB KETON(LOIN Negative mg/dL C) Ketone Urine NEGATIVE LAB HGBUR(LOIN Negative C) Abnormal Hemoglobin,Urin LARGE e LAB PROTU(LOIN Negative mg/dL C) Abnormal Protein Urine TRACE LAB NITRI(LOIN Negative C) Nitrites Urine NEGATIVE LAB BILIU(LOIN Negative C) Bilirubin Urine NEGATIVE LAB SPG(LOINC) 1.005-1.030 Specific <=1.005 [place], Ur LAB PHUR(LOINC 5.0-8.0 ) pH,Urine 6.5 LAB UROBI(LOIN 0.0-1.0 EU/dL C) Abnormal Urobilinogen,Ur 2.0 LAB LEUKO(LOIN Negative C) Leukocytes NEGATIVE Esterase LAB COLOR(LOIN C) Urine Color YELLOW LAB APPUR(LOIN C) Urine Appearance CLEAR LAB RBCU1(LOIN 0.0-5.0 /hpf C) High RBC,Urine 36.0-50 LAB WBCU1(LOIN 0.0-5.0 /hpf C) WBC, Urine 1.0-3 LAB EPIT1(LOIN 0.0-5.0 /hpf C) Ep Cells Urine 0.0-2 LAB BACT1(LOIN None C) Bacteria Urine NONE LAB HYCA1(LOIN 0.0-1.0 /lpf C) Hyaline Cast NONE Performed By: #### URIN2 #### [facility] [address] [place] [address] COMPREHENSIVE PANEL Collected: 09/30/2017 Status: F Source: [facility] 12:28 AM HEALTH SYSTEM REPOSITORY TYPE CODE TESTS RESULT OUT OF REFERENCE UNITS RANGE LAB NA(LOINC) 136-145 mEq/L Sodium Blood 141 LAB K(LOINC) 3.5-5.1 mEq/L Potassium Blood 4.1 LAB CL(LOINC) 98-107 mEq/L Chloride High Blood 110 LAB CO2(LOINC) 21-32 mEq/L CO2 Blood 25 LAB GLU(LOINC) 70-99 mg/dL Glucose Blood 96 LAB BUN(LOINC) 7-18 mg/dL BUN Blood 8 LAB CREA(LOINC 0.67-1.17 mg/dL ) Creatinine Blood 0.85 LAB CA(LOINC) 8.5-10.1 mg/dL Low Calcium Blood 8.3 LAB ALB(LOINC) 3.4-5.0 g/dL Low Albumin Blood 2.8 LAB TP(LOINC) 6.4-8.2 g/dL Low Total Protein 5.3 LAB AST(LOINC) 9-37 U/L AST-SGOT Blood 14 LAB ALT(LOINC) 12-78 U/L ALT-SGPT Blood 16 LAB ALKP(LOINC 46-116 U/L ) Alk Phosphatase 76 LAB BILIT(LOIN 0.2-1.0 mg/dL C) Total Bilirubin 0.7 LAB ANGAP(LOIN 8-16 C) Anion Gap 10 Performed By: #### P14 #### [facility] [address] [place] [address] MDRD GFR Collected: 09/30/2017 Status: F Source: [facility] 12:28 AM HEALTH SYSTEM REPOSITORY TYPE CODE TESTS RESULT OUT OF RANGE REFERENCE UNITS LAB GFRFN(LOINC >60mL/min/1.73m ) 2 eGFR >60 Result Comment: If the patient is , multiply the result by 1.210. Performed By: #### GFR #### [facility] [address] [place] [id number] HEMOGRAM/DIFF Collected: 09/29/2017 Status: F Source: [facility] 11:30 PM HEALTH SYSTEM REPOSITORY TYPE CODE TESTS RESULT OUT OF REFERENCE UNITS RANGE LAB WBC(LOINC) 4.23-9.07 thou/cmm WBC 4.76 LAB RBC(LOINC) 4.63-6.08 mil/cmm Low RBC 1.46 LAB HGB(LOINC) 13.7-17.5 g/dL Low Hgb alert 4.6 LAB HCT(LOINC) 40.1-51.0 % Low Hct alert 14.8 LAB MCV(LOINC) 83.2-95.6 fl MCV High 101.4 LAB MCH(LOINC) 25.7-32.2 pg MCH 31.5 LAB MCHC(LOINC 32.3-36.5 % ) Low MCHC 31.1 LAB RDW(LOINC) 11.6-14.4 % RDW High 23.5 LAB RDWSD(LOIN 36.1-45.8 fl C) RDW SD High 77.5 LAB PLT(LOINC) 141-365 thou/cmm Low Platelet alert 47 LAB MPV(LOINC) 8.7-12.0 fl MPV 11.7 LAB NRBCR(LOIN 0.0-0.2 % C) High Nucleated RBC % 0.4 LAB NRBCA(LOIN 0.00-0.01 thou/cmm C) High Nucleated RBC 0.02 Absolute LAB SEG(LOINC) % Seg Neutrophil 63.3 LAB IGRE(LOINC % ) Immature Grans 1.70 LAB LYMPH(LOIN % C) Lymphocyte 17.9 LAB MNO(LOINC) % Monocyte 13.7 LAB EOSIN(LOIN % C) Eosinophil 3.4 LAB BASO(LOINC % ) Basophil 0.0 LAB SEGN(LOINC 1.78-5.38 thou/cmm ) Abs. Neut 3.01 LAB IGAB(LOINC 0.00-0.05 thou/cmm ) Abs High Immature Grans 0.08 LAB LYMN(LOINC 0.84-2.85 thou/cmm ) Abs. Lymph 0.85 LAB MONON(LOIN 0.30-0.82 thou/cmm C) Abs. Rush 0.65 LAB EOSN(LOINC 0.04-0.54 thou/cmm ) Abs. Eosin 0.16 LAB BASON(LOIN 0.01-0.08 thou/cmm C) Low Abs. Baso 0.00 Result Comment: Smear scanned; tech agrees with automated differential LAB INTD(LOINC) CBC Interp. See below LAB PATH(LOINC) Interpreted by See below Result Comment: Kaylee Bryant M.D., Pathologist Anisocytosis seen in the RBCs including a few microspherocytes. Recommend clinical correlation. Performed By: #### CBCD1 #### [place] [address] RBC PRODUCTS Collected: 09/29/2017 Status: F Source: [facility] 11:30 PM HEALTH SYSTEM REPOSITORY TYPE CODE TESTS RESULT OUT OF REFERENCE UNITS RANGE LAB UNIT1(LOINC ) Xmatch Unit 1 see below Result Comment: Compatible LAB UNIT2(LOINC) Xmatch Unit 2 see below Result Comment: Compatible Performed By: #### RBCPS #### [place] [address] TYPE AND SCREEN Collected: 09/29/2017 Status: F Source: [facility] 11:30 PM HEALTH SYSTEM REPOSITORY TYPE CODE TESTS RESULT OUT OF REFERENCE UNITS RANGE LAB ABO(LOINC) O ABO Group LAB CAMPUS RECRUITING INTERN(LOINC ) RH Type Positive LAB ABSCR(LOIN C) Antibody NEGATIVE Screen LAB BBCMT(LOIN C) Comment See Below Result Comment: Screen &/or Xmatch expires in 3 days at 12 midnight. Redraw patient at that time. Performed By: #### T&S #### [place] [address] HISTORY PHYSICAL Observed: 09/29/2017 Status: COMPLETED Source: [facility] 10:32 PM CLINIC OTHER CAMPUS REPOSITORY HNO ID: [id number] Author: Jerry Stone Service: Hospital Medicine Author Type: Physician Type: HANDP Filed: 09/29/2017 11:19 PM Note Text: DEPARTMENT OF HOSPITAL MEDICINE HISTORY AND PHYSICAL EXAM SERVICE DATE: 09/29/2017 SERVICE TIME: 2200 Primary Care Physician: Fany Hobson MD NIGHT AND WEEKEND COVERAGE: From 7am - 7pm, please call Sound Admit After 7pm, please call cross cover pager #[phone] Subjective CHIEF COMPLAINT: SOB HPI: This is a 72 year old male with PHX of A.fib on Xarelto, Lung cancer undergoing chemotherapy, recurrent epistaxis s/p packing, CAD s/p CABG, CHF, COPD presents with complaints of SOB, fatigue, and melanotic stools X3 days. . Patient reports chronic aspirin and Xarelto use. No recent NSAID use. Denies any abdominal pain, fevers, chills Patient found to have Hgb of 5 with positive FOBT transferred to [facility] due to no GI service available at [facility]. Of note patient also states has noted some hematuria during this time. PAST MEDICAL HISTORY Diagnosis Date - BENIGN HYPERTENSION - CORONARY ATHEROSCLER UNSPEC VESSEL Coronary artery disease PAST SURGICAL HISTORY Procedure Laterality Date - ANGIOPLASTY 02/14/06 Open Heart Surgery - CABG, ARTERY-VEIN, THREE 02/16/2006 CABG, three grafts FAMILY HISTORY Problem Relation Age of Onset - Cancer Brother - Cancer Maternal Grandfather - Heart Maternal Grandfather - Hypertension Mother - Hypertension Father - Stroke Paternal Grandmother Social History Substance Use Topics - Smoking status: Former Smoker - Smokeless tobacco: Not on file Comment: Quit in 1992 - Alcohol use Not on file MEDICATIONS: Reviewed Prescriptions Prior to Admission: cyanocobalamin, vitamin B-12, (B-12 COMPLIANCE) 1,000 mcg/mL kit Take 1,000 mcg by mouth once daily. Disp: Rfl: DIGOXIN, BULK, MISC 0.25 mg once daily. Disp: Rfl: docusate sodium (COLACE) 100 mg capsule Take 100 mg by mouth once daily. Disp: Rfl: DULoxetine (CYMBALTA) 60 mg capsule Take 60 mg by mouth once daily. Disp: Rfl: furosemide (LASIX) 40 mg tablet Take 40 mg by mouth once daily. Disp: Rfl: gabapentin (NEURONTIN) 600 mg tablet Take 1,200 mg by mouth once daily. Disp: Rfl: potassium chloride (KLOR-CON 10 ORAL) Take 20 mEq by mouth twice daily. Disp: Rfl: metoprolol tartrate, short acting, (LOPRESSOR) 100 mg tablet Take 25 mg by mouth once daily. Disp: Rfl: pramipexole (MIRAPEX) 0.5 mg tablet Take 0.5 mg by mouth three times daily. Disp: Rfl: pravastatin (PRAVACHOL) 40 mg tablet Take 40 mg by mouth once daily. Disp: Rfl: fenofibrate nanocrystallized (TRICOR) 145 mg tablet Take 145 mg by mouth once daily. Disp: Rfl: rivaroxaban (XARELTO) 20 mg tablet Take 20 mg by mouth daily with dinner. Disp: Rfl: tiotropium bromide (SPIRIVA RESPIMAT INHALATION) Inhale as instructed. Disp: Rfl: valsartan (DIOVAN) 40 mg tablet Take 40 mg by mouth once daily. Disp: Rfl: ASPIR-81 81 MG TAB Take one(1) tablet daily. Disp: Rfl: 0 09/29/2017 at Unknown time FOLIC ACID 1 MG TAB Take one(1) tablet daily. Disp: Rfl: 0 09/29/2017 at Unknown time ALLERGIES No Known Allergies REVIEW OF SYSTEM: Negative except HPI Objective PHYSICAL EXAM: BP 123/46 Pulse 95 Temp (Src) 97.7 (Oral) Resp 20 Physical Exam Performed: GENERAL: Alert, no distress, cooperative HEAD/SINUSES: No significant findings NOSE: +epistaxis with blood noted in R. nare OROPHARYNX: Lips, mucosa, and tongue normal. Teeth and gums normal. Oropharynx normal. NECK: No jugulovenous distention, No carotid bruits, Carotid pulse normal contour, Supple LUNGS: Lungs clear to auscultation, Good diaphragmatic excursion CARDIAC: Irregular rhythm. +[id number], no murmurs ABDOMEN: Abdomen soft, non-tender, BS normal, No masses or organomegaly EXTREMITIES: Extremities normal, no deformities, edema, clubbing or skin discoloration. Good capillary refill., No ulcers NEURO: Grossly normal cognition, motor function, and cranial nerves III-XII, Cranial nerves II-XII intact PULSES: 2+ radial, 2+ carotid Lines, Drains, and Airways No matching active lines, drains, or airways Reviewed lines, drains, AND airways. Need to be continued . DATA: Diagnostic tests reviewed for today's visit: Reviewed Assessment/Plan # Acute on Chronic anemia - secondary to GIB vs epistaxis vs chemotherapy. Will hold xarelto. GI, ENT and Heme/Onc consult. IV Protonix BID. Obtain records from Dr. Marybeth Blanco (Oncology). Transfuse 2 units PRBC. Monitor H/H Q8H. # CAD s/p CABG - con't metoprolol, statin, valsartan. Currently denies any chest pain. # COPD - not in exacerbation. Con't bronchodilators PRN. # A.Fib - Rate controlled with metoprolol. Hold AC due to GI Bleed Code Status: Full Code. Ok for intubation for short term only VTE Prophylaxis: SCDs Disposition: Home Plan of care discussed with: Patient and Family/Other: SIGNATURE: Jerry Stone DO PATIENT NAME: Jv Durham Jr. DATE: September 29, 2017 TIME: 10:32 PM PAGER/CONTACT #: Dayna Kulkarni etnadja [phone] EMERGENCY DEPARTMENT Observed: 09/29/2017 Status: F Source: [place] SUMMARY 6:50 PM [facility] REPOSITORY [facility] Medical Records Department [address] [place] [id number] Emergency Department Summary 09/29/17 1845 MR#: [id number] Acct: [id number] Name: JV DURHAM Jr. Rep #: [id number] : 1945 72 From: Alma Delia Zavala DO PCP: Fany Hobson DO Status: REG ER - ER Visit Summary Date of Service: 09/29/17 Chief Complaint: [Shortness of breath] History of Present Illness: The patient is a 72 M [presents the emergency department with dyspnea it has been ongoing for approximately 1 week but worse over last 2 days. Patient started noticing some black stool 2 days ago. Patient feels generally weak and lightheaded with standing. Patient also has had some intermittent chest discomfort that usually resolves after patient uses oxygen. Patient does have a history of lung cancer and is undergoing chemotherapy with his last chemo treatment about 2 weeks ago. Patient also has a history of COPD, Parkinson's, and atrial fibrillation. Patient is on Xarelto.] Patient has had some intermittent nosebleeds as well. Physical Examination: [HEENT-PERRLA, EOMI. Cranial nerves II through XII grossly intact. TMs clear. Mucous membranes moist. No adenopathy. Patient is pale appearing Cardiovascular- irregular with a 2 out of 6 systolic ejection murmur noted. Lungs-clear to auscultation, chest wall stable without crepitus or subcu emphysema Abdomen-normoactive bowel sounds, soft, nontender, no rebound or rigidity, no peritoneal signs. There was black tarry stool that was Hemoccult positive Extremities-intact 4, normal range of motion, normal pulses, atraumatic] Test Results: [EKG obtained showed atrial fibrillation with a ventricular rate of [address] changes when compared with prior EKG from January 02, 2017 no new changes noted. CBC with differential was showed a hemoglobin of 5.0, hematocrit 16, WBCs 4.6, platelet count 44. Chemistries unremarkable. Troponin was 0.12. Hemoccult positive. Chest x-ray showed chronic changes otherwise nothing acute.] Emergency Department Course and Treatment: [Patient was typed and crossed for 2 units packed red blood cells.] Treatment Plan: [We do not have GI coverage available at [facility] therefore patient will be transferred to [facility].] Disposition: [Transfer] Impression: [Anemia Upper GI hemorrhage Indeterminant troponin elevation] This note was generated with [employer] dictation software. It may contain incorrect words, spelling, and punctuation that were not noted in review of the chart prior to signing ED Disposition - Plan for ED Patient: Chief Complaint: Shortness of Breath Referrals: Fany Hobson DO [Primary Care Provider] - What to do if you have Problems For any increased pain, shortness of breath, bleeding, nausea or vomiting, chest pain, or any unexpected problems, contact your Primary Care Provider. Call [facility] ([phone]) or report to the closest Emergency Room. Call 911 if necessary. 09/29/17 1850 <Electronically signed by Alma Delia Zavala DO> Date Alma Delia Zavala DO Cosigner Signature (If Indicated): Date CC: Fany Hobson DO CBC W/DIFF, AUTOMATED Collected: 09/29/2017 Status: C Source: [place] 5:05 PM [facility] REPOSITORY TYPE CODE TESTS RESULT OUT OF RANGE REFERENCE UNITS LAB L100.1000 4.4-11.0 K/mm3 Normal WBC 4.6 LAB L100.1200 4.6-6.2 M/mm3 Low RBC 1.62 LAB L100.1300 13.0-16.5 g/dl Low alert HGB 5.0 Result Comment: RESULTS CALLED TO MMARTIN 09/29/17 1722 Akshat Almazan. REPORT READ BACK BY SAME. LAB L100.1400 40-54 % Low HCT 16.0 LAB L100.1500 80-94 fL High MCV 98.8 LAB L100.1600 27.0-32.0 pg Normal MCH 30.9 LAB L100.1700 32-36 g/gl Low MCHC 31.3 LAB L100.1810 11.6-14.6 % High RDW CV 23.1 LAB L100.1820 35.1-43.9 fl High RDW SD 76.8 LAB L100.1900 150-450 K/mm3 Low alert PLT 44 Result Comment: RESULTS CALLED TO MMARTIN 09/29/17 1722 Akshat Almazan. REPORT READ BACK BY SAME. LAB L100.2000 6.2-12.0 fl Normal MPV 10.4 LAB L100.2100 47-70 % Normal NEUT% 69.9 LAB L100.2200 19-41 % Low LY% 14.8 LAB L100.2300 0-10 % High MONO% 11.3 LAB L100.2400 0-5 % Normal EO% 3.1 LAB L100.2500 0-1 % Normal BASO% 0.2 LAB L100.2550 0.0-0.9 % Normal IM 0.700 GRAN % Result Comment: IG% - Immature Granulocytes (promyelocytes, myelocytes and metamyelocytes) > 1% indicates that a LEFT SHIFT is Present. LAB L100.2620 2.0-7.7 X10 3/uL Absolute Neut Normal 3.2 LAB L100.2720 0.83-4.51 X10 3/ul Low Absolute Lymph 0.68 LAB L100.4800 TOXIC GRAN Normal RARE LAB L100.4900 DOHLE BODIES Normal RARE LAB L100.5500 ADEQ PLT EST Normal MKD DEC LAB L100.7300 ANISO Normal 2+ LAB L100.7500 POLYCHROMASIA Normal 1+ LAB L100.7600 HYPOCHROMASIA Normal 1+ LAB L100.7800 MACROCYTE Normal 1+ LAB L100.9900 PATH REV Normal Reviewed Result Comment: Severe Macrocytic anemia and Thrombocytopenia. Clinical correlation necessary. Silvio Garcias M.D. 09/30/17 AMENDED REPORT 09/30/17 1006 PATH REV previously reported as: October kristopher Performed By: #### L100.0100 #### [facility] [address] [place], [address] BASIC METABOLIC Collected: 09/29/2017 Status: F Source: [facility] PROFILE (BMP) 5:05 PM [facility] REPOSITORY Order Comment: 'TROP' Serial specimen #1, #2, #3, or #4: 1 TYPE CODE TESTS RESULT OUT OF RANGE REFERENCE UNITS LAB L501.0100 74-106 mg/dL Normal GLU 101 Result Comment: Fasting Glucose result from 100 to 125 mg/dL suggests IMPAIRED HOMEOSTASIS per A.D.A. criteria. Please note revised GLUCOSE reference range effective 2017. LAB L501.1000 7-18 mg/dL Normal BUN 11 LAB L501.1100 0.70-1.30 mg/dL Normal CREAT,SERUM 0.87 Result Comment: The validity of the calculated GFR AND GFRAA in patients over 70 years has not been determined. Clinical correlation is essential. LAB L501.1110 >60 mL/min Normal EST GFR 91 Result Comment: Non- GFR Calc LAB L501.1115 >60 mL/min Normal EST GFR - AA 110 Result Comment: GFR Calc LAB L501.1255 ml/min Normal Estimated CRCL 79.25 LAB L501.1300 10-20 RATIO Normal BUN/CRE 12.6 LAB L501.2200 8.5-10 mg/dL Low .1 CA 8.0 LAB L501.5300 136-14 mmol/L Normal 5 NA 139 LAB L501.5600 3.5-5. mmol/L Normal 1 K 4.5 LAB L501.5900 98-107 mmol/L High CL 108 LAB L501.6100 21.0-3 mmol/L Normal 2.0 CO2 25.0 LAB L501.6200 5-15 Normal GAP 6 Performed By: #### L500.2500, L501.4010 #### [facility] [address] [facility] [place], [address] TROPONIN-I Collected: 09/29/2017 Status: F Source: [place] 5:05 PM [facility] REPOSITORY Order Comment: 'TROP' Serial specimen #1, #2, #3, or #4: 1 TYPE CODE TESTS RESULT OUT OF RANGE REFERENCE UNITS LAB L501.4010 <0.06 ng/mL High 0.12 TROPONIN-I Result Comment: TROPONIN-I EXPECTED VALUES <0.05 NEGATIVE 0.06 - 0.59 AT RISK OF FL > OR = 0.60 SUGGEST FL Performed By: #### L500.2500, L501.4010 #### [facility] [address] [facility]. [place], [place], [address] TYPE AND SCREEN Collected: 09/29/2017 Status: F Source: [place] 5:05 PM [facility] REPOSITORY Order Comment: Reason for Type AND Screen/Red Cells: HEMORRHAGE, GI BLEED TYPE CODE TESTS RESULT OUT OF RANGE REFERENCE UNITS LAB B10.0800 O Normal BLOOD TYPE GEL POSITIVE LAB B100.4000 Normal Antibody NEGATIVE Screen Performed By: #### B101.7450 #### [facility] [address] [place], [place], [id number] Observed: 09/29/2017 Status: F Source: [facility] [place] STOOL OCCULT BLOOD 5:00 PM [facility] IFOB REPOSITORY STOB iFOB Normal Reference Range = Negative CRITICAL VALUE VERIFIED. CALLED TO MARTIR WRIGHT 09/29/17 1730 Phil Butcher. RESULTS READ BACK BY MARTIR . Occult Blood Positive ORGANISM 1: OCCULT BLOOD POSITIVE Performed By: #### M100.7900 #### [facility] [place], [place], [address] CHEST 1 VIEW Observed: 09/29/2017 Status: F Source: [facility] (PORTABLE) 4:44 PM [facility] REPOSITORY [facility] Imaging Services [address] [place] [id number] Chest 1 View (Portable) MR#: [id number] Acct: [id number] Name: JV DURHAM Jr. Rep #: [id number] : 1945 M 72 From: Anastasia Fonseca MD PCP: Fany Hobson DO Status: REG ER Study: Chest 1 View (Portable) Date of Exam: 09/29/17 Exam# [id number] Ordering Dr: Alma Delia Zavala DO STUDY: X-RAY CHEST REASON FOR EXAM: Male, [...] disease. Postoperative changes left apex. Electronically Signed: Aanstasia Fonseca MD at 17:12 EDT Tel , Service support , CC: Fany Hobson DO; Alma Delia Zavala DO Member Of [place] Legislative [place]: Signed HOSP Observed: 09/29/2017 Status: COMPLETED Source: MEDICINE BOW 12:00 AM CLINIC OTHER CAMPUS REPOSITORY Patient:Jv Durham Jr. MRN: <[id number]> Height:5' 8(1.727 m) Weight:280 lb (127.007 kg) Outpatient Medications as of 10/01/17: cyanocobalamin, vitamin B-12, (B-12 COMPLIANCE) 1,000 mcg/mL kit DIGOXIN, BULK, MISC docusate sodium (COLACE) 100 mg capsule DULoxetine (CYMBALTA) 60 mg capsule furosemide (LASIX) 40 mg tablet gabapentin (NEURONTIN) 600 mg tablet potassium chloride (KLOR-CON 10 ORAL) metoprolol tartrate, short acting, (LOPRESSOR) 100 mg tablet pramipexole (MIRAPEX) 0.5 mg tablet pravastatin (PRAVACHOL) 40 mg tablet fenofibrate nanocrystallized (TRICOR) 145 mg tablet rivaroxaban (XARELTO) 20 mg tablet tiotropium bromide (SPIRIVA RESPIMAT INHALATION) valsartan (DIOVAN) 40 mg tablet ASPIR-81 81 MG TAB FOLIC ACID 1 MG TAB Admission/Clinic Administered Medications as of 10/01/17: acetaminophen 650 mg tab(s) (TYLENOL) ondansetron (PF) 4 mg injection (ZOFRAN) sodium chloride 0.65 % 1 [place] (AYR, OCEAN) sodium chloride-aloe vera topical nasal gel (AYR GEL w/ALOE) gabapentin 1,200 mg cap(s) (NEURONTIN) valsartan 40 mg tab(s) (DIOVAN) pramipexole 0.5 mg tab(s) (MIRAPEX) metoprolol tartrate (short acting) 25 mg tab(s) (LOPRESSOR) furosemide 40 mg tab(s) (LASIX) DULoxetine 60 mg cap(s) (CYMBALTA) pantoprazole DR 40 mg tab(s) (PROTONIX) digoxin 0.25 mg tab(s) (LANOXIN) 0.9% NaCl 3-5 mL atorvastatin 10 mg tab(s) (LIPITOR) fenofibrate 200 mg cap(s) (LOFIBRA) Problem List: GIB (gastrointestinal bleeding) [K92.2] Blood loss anemia [D50.0] Chronic anticoagulation [Z79.01] Atrial fibrillation (HCC) [I48.91] Primary lung adenocarcinoma, left (HCC) [C34.92] Coronary artery disease involving alturas heart without angina pectoris [I25.10] Anemia [D64.9] Melena [K92.1] Positive fecal occult blood test [R19.5] Obesity, Class III, BMI >= 40 E66.01 [E66.01] Allergies: No Known Allergies Date Verified:10/01/17 Lab Values Lab Value Units Date High Low POTA* 4.0 mEq/L 09/30/2017 5.1 3.5 CHIVO* 22.4 % 10/01/2017 51.0 40.1 Progress Notes (): Jerry StoneDO 09/29/2017 11:19 PM Signed DEPARTMENT OF HOSPITAL MEDICINE HISTORY AND PHYSICAL EXAM SERVICE DATE: 09/29/2017 SERVICE TIME: 2199 Primary Care Physician: Fany Hobson MD NIGHT AND WEEKEND COVERAGE: From 7am - 7pm, please call Sound Admit After 7pm, please call cross cover pager #[phone] Subjective CHIEF COMPLAINT: SOB HPI: This is a 72 year old male with PHX of A.fib on Xarelto, Lung cancer undergoing chemotherapy, recurrent epistaxis s/p packing, CAD s/p CABG, CHF, COPD presents with complaints of SOB, fatigue, and melanotic stools X3 days. . Patient reports chronic aspirin and Xarelto use. No recent NSAID use. Denies any abdominal pain, fevers, chills Patient found to have Hgb of 5 with positive FOBT transferred to [facility] due to no GI service available at [facility]. Of note patient also states has noted some hematuria during this time. PAST MEDICAL HISTORY Diagnosis Date - BENIGN HYPERTENSION - CORONARY ATHEROSCLER UNSPEC VESSEL Coronary artery disease PAST SURGICAL HISTORY Procedure Laterality Date - ANGIOPLASTY 02/14/06 Open Heart Surgery - CABG, ARTERY-VEIN, THREE 02/16/2006 CABG, three grafts FAMILY HISTORY Problem Relation Age of Onset - Cancer Brother - Cancer Maternal Grandfather - Heart Maternal Grandfather - Hypertension Mother - Hypertension Father - Stroke Paternal Grandmother Social History Substance Use Topics - Smoking status: Former Smoker - Smokeless tobacco: Not on file Comment: Quit in 1992 - Alcohol use Not on file MEDICATIONS: Reviewed Prescriptions Prior to Admission: cyanocobalamin, vitamin B-12, (B-12 COMPLIANCE) 1,000 mcg/mL kit Take 1,000 mcg by mouth once daily. Disp: Rfl: DIGOXIN, BULK, MISC 0.25 mg once daily. Disp: Rfl: docusate sodium (COLACE) 100 mg capsule Take 100 mg by mouth once daily. Disp: Rfl: DULoxetine (CYMBALTA) 60 mg capsule Take 60 mg by mouth once daily. Disp: Rfl: furosemide (LASIX) 40 mg tablet Take 40 mg by mouth once daily. Disp: Rfl: gabapentin (NEURONTIN) 600 mg tablet Take 1,200 mg by mouth once daily. Disp: Rfl: potassium chloride (KLOR-CON 10 ORAL) Take 20 mEq by mouth twice daily. Disp: Rfl: metoprolol tartrate, short acting, (LOPRESSOR) 100 mg tablet Take 25 mg by mouth once daily. Disp: Rfl: pramipexole (MIRAPEX) 0.5 mg tablet Take 0.5 mg by mouth three times daily. Disp: Rfl: pravastatin (PRAVACHOL) 40 mg tablet Take 40 mg by mouth once daily. Disp: Rfl: fenofibrate nanocrystallized (TRICOR) 145 mg tablet Take 145 mg by mouth once daily. Disp: Rfl: rivaroxaban (XARELTO) 20 mg tablet Take 20 mg by mouth daily with dinner. Disp: Rfl: tiotropium bromide (SPIRIVA RESPIMAT INHALATION) Inhale as instructed. Disp: Rfl: valsartan (DIOVAN) 40 mg tablet Take 40 mg by mouth once daily. Disp: Rfl: ASPIR-81 81 MG TAB Take one(1) tablet daily. Disp: Rfl: 0 09/29/2017 at Unknown time FOLIC ACID 1 MG TAB Take one(1) tablet daily. Disp: Rfl: 0 09/29/2017 at Unknown time ALLERGIES No Known Allergies REVIEW OF SYSTEM: Negative except HPI Objective PHYSICAL EXAM: BP 123/46 Pulse 95 Temp (Src) 97.7 (Oral) Resp 20 Physical Exam Performed: GENERAL: Alert, no distress, cooperative HEAD/SINUSES: No significant findings NOSE: +epistaxis with blood noted in R. nare OROPHARYNX: Lips, mucosa, and tongue normal. Teeth and gums normal. Oropharynx normal. NECK: No jugulovenous distention, No carotid bruits, Carotid pulse normal contour, Supple LUNGS: Lungs clear to auscultation, Good diaphragmatic excursion CARDIAC: Irregular rhythm. +[id number], no murmurs ABDOMEN: Abdomen soft, non-tender, BS normal, No masses or organomegaly EXTREMITIES: Extremities normal, no deformities, edema, clubbing or skin discoloration. Good capillary refill., No ulcers NEURO: Grossly normal cognition, motor function, and cranial nerves III-XII, Cranial nerves II-XII intact PULSES: 2+ radial, 2+ carotid Lines, Drains, and Airways No matching active lines, drains, or airways Reviewed lines, drains, AND airways. Need to be continued . DATA: Diagnostic tests reviewed for today's visit: Reviewed Assessment/Plan # Acute on Chronic anemia - secondary to GIB vs epistaxis vs chemotherapy. Will hold xarelto. GI, ENT and Heme/Onc consult. IV Protonix BID. Obtain records from Dr. Marybeth Blanco (Oncology). Transfuse 2 units PRBC. Monitor H/H Q8H. # CAD s/p CABG - con't metoprolol, statin, valsartan. Currently denies any chest pain. # COPD - not in exacerbation. Con't bronchodilators PRN. # A.Fib - Rate controlled with metoprolol. Hold AC due to GI Bleed Code Status: Full Code. Ok for intubation for short term only VTE Prophylaxis: SCDs Disposition: Home Plan of care discussed with: Patient and Family/Other: SIGNATURE: Jerry Stone DO PATIENT NAME: Jv Durham Jr. DATE: September 29, 2017 TIME: 10:32 PM PAGER/CONTACT #: Dayna Admit etx [phone] Rio Jordan MD 10/01/2017 7:58 AM Signed CONSULT: GASTROENTEROLOGY SERVICE SERVICE DATE: 03/22/2017 SERVICE TIME: 7:48 AM REASON FOR CONSULT: Severe anemia REQUESTING PHYSICIAN: EDGAR Mcintosh SUBJECTIVE :Mr. Durham is a 72 year old male who presented from [facility] for GIB. He stated he normally gets blood transfusions prior to getting chemotherapy. His last dose of chemotherapy was 2 weeks ago. He had lab work done last week for evaluation of his anemia. He believes at that time his hemoglobin was 8.1. He started to have fatigue, SOB, and melanotic stools for about 3 days. He denied abdominal pain, hematochezia, hematemesis, nausea, vomiting, constipation, or diarrhea. He tried to get a sooner appointment with a provider due to his symptoms. Once he informed them of the melena stools he was instructed to proceed to the ED. His hemoglobin was 5 with positive FOBT at [facility] so he transferred to [facility] for GI consult. His last colonoscopy was within 5 years. He stated he never had an EGD. ? . FUNCTIONAL STATUS: Independent PAST MEDICAL HISTORY Diagnosis Date - Coronary atherosclerosis of unspecified type of vessel, alturas or graft Coronary artery disease - Essential hypertension, benign PAST SURGICAL HISTORY Procedure Laterality Date - ANGIOPLASTY 02/14/06 Open Heart Surgery - CABG, ARTERY-VEIN, THREE 02/16/2006 CABG, three grafts FAMILY HISTORY Problem Relation Age of Onset - Cancer Brother - Cancer Maternal Grandfather - Heart Maternal Grandfather - Hypertension Mother - Hypertension Father - Stroke Paternal Grandmother Current Facility-Administered Medications: acetaminophen 650 mg tab(s) (TYLENOL) 650 mg ORAL q 6 H PRN Gloria (Small Business Sales Representative) APRN. KiaPERFORMANCE IMPROVEMENT COORDINATOR 650 mg at 09/30/17 0338 ondansetron (PF) 4 mg injection (ZOFRAN) 4 mg INTRAVENOUS q 6 H PRN Gloria (Terence) APRN. KiaPERFORMANCE IMPROVEMENT COORDINATOR 4 mg at 09/30/17 0338 sodium chloride 0.65 % 1 [place] (AYR, OCEAN) 1 [place] EACH NOSTRIL QID Elroy Hough 1 [place] at 09/30/17 1554 sodium chloride-aloe vera topical nasal gel (AYR GEL w/ALOE) INTRANASAL QID Elroy Hough gabapentin 1,200 mg cap(s) (NEURONTIN) 1,200 mg ORAL DAILY Judith Sara Qavi 1,200 mg at 09/30/17 0828 valsartan 40 mg tab(s) (DIOVAN) 40 mg ORAL DAILY Judith Sara Qavi 40 mg at 09/30/17 0828 pramipexole 0.5 mg tab(s) (MIRAPEX) 0.5 mg ORAL TID Judith Sara Qavi 0.5 mg at 09/30/17 220 metoprolol tartrate (short acting) 25 mg tab(s) (LOPRESSOR) 25 mg ORAL q 12 H Judith Sara Qavi 25 mg at 09/30/17 220 furosemide 40 mg tab(s) (LASIX) 40 mg ORAL DAILY Judith Sara Qavi 40 mg at 09/30/17 0830 DULoxetine 60 mg cap(s) (CYMBALTA) 60 mg ORAL DAILY Judith Sara Qavi 60 mg at 09/30/[address] 40 mg tab(s) (PROTONIX) 40 mg ORAL BID AC (0600/1600) Judith Sara Qavi 40 mg at 10/01/17 0455 digoxin 0.25 mg tab(s) (LANOXIN) 0.25 mg ORAL DAILY Judith Sara Qavi 0.25 mg at 09/30/17 0831 0.9% NaCl 3-5 mL 3-5 mL INTRAVENOUS q 12 H Judith Sara Qavi 5 mL at 09/30/17 2209 atorvastatin 10 mg tab(s) (LIPITOR) 10 mg ORAL AT BEDTIME Judith Sara Qavi 10 mg at 09/30/17 2207 fenofibrate 200 mg cap(s) (LOFIBRA) 200 mg ORAL DAILY WITH BREAKFAST Judith Sara Qavi 200 mg at 09/30/17 0829 ALLERGIES No Known Allergies Fully Assessed 10/01/17 COMPLETE REVIEW OF SYSTEMS: PAIN ASSESSMENT: Negative for pain GENERAL: No weight loss, malaise or fevers HEAD AND NECK: No headache, swollen glands PULMONARY: No cough, wheezing, dyspnea on exertion, or shortness of breath CARDIOVASCULAR: No chest pain, palpitations ABDOMINAL: Per HPI NEUROLOGIC: No dizziness, lightheadedness, or weakness OPHTHALMOLOGIC: No visual abnormalities MUSCULOSKELETAL: No pain, weakness, or leg swelling SKIN: No rash OBJECTIVE PHYSICAL EXAM: 09/30/17 1153 09/30/17 1950 09/30/17 1954 10/01/17 0600 BP: (!) 117/46 (!) 110/45 126/57 Pulse: 85 78 Resp: 18 18 Temp: 36.6 ?C (97.9 ?F) 36.6 ?C (97.9 ?F) TempSrc: Oral Oral SpO2: 98% 98% 100% Weight: Height: GENERAL: Alert, no distress, cooperative HEENT: PERRLA, normocephalic, no thyromegaly, no lymphadenopathy, trachea centrally located CHEST: Clear to auscultation and percussion bilaterally CVS: RRR, no murmur/gallop ABD: Full, soft, obese, non tender, no mass or organomegaly NEURO: Cranial nerves intact, no lateralizing neurologic signs MSK: No wasting, no weakness EXT: No edema, no deformity SKIN: No jaundice, no rash DATA: Diagnostic tests reviewed for today's visit: Most recent labs and imaging results. IMPRESSION 1. Severe anemia with negative colonoscopies in the past, no EGD in the past- on anti-gagulation for A. Fib. 2. S/P Left lung cancer resection, on chemo, but not on radation therapy, 3. Chr. A. Fib- anticoagulants on temporary hold, pending EGD RECOMMENDATION/PLAN 1. EGD 2. Further diagnostic tests depending on #1 Oncology noted outlining goal of cure of lung CA noted, appreciated. SIGNATURE: Rio Jordan MD PATIENT NAME: Jv Durham Jr. DATE: 10/01/17 TIME: 7:48 AM Bonnie Falcon MD 09/30/2017 8:21 AM Signed JV DURHAM 72 year old HEMATOLOGY/MEDICAL ONCOLOGY CONSULTATION: Lung Cancer, GI Bleeding, Anticoagulation with Xarelto Plus Aspirin Subjective HPI: 72-year-old male, undergoing chemotherapy for recent diagnosis of lung cancer, on anticoagulation with Xarelto and aspirin, admitted with bright red blood per rectum ?3, associated with generalized fatigue, weakness, dyspnea on exertion. He has been transferred to [facility] for GI evaluation. In relation to his lung cancer, he is status post [facility] He was found to have a T2a and NX M0 malignancy, because of significant scarring, appropriate and usual node sampling could not be performed. Because of this, he has proceeded with adjuvant chemotherapy, and by his description, this is likely carboplatin/Alimta therapy. In relation to his Xarelto, this apparently is being utilized secondary to diagnosis of chronic atrial fibrillation. He also utilizes aspirin, and has been having problems with significant epistaxis 4 weeks. Current Facility-Administered Medications: acetaminophen 650 mg tab(s) (TYLENOL) 650 mg ORAL q 6 H PRN Gloria (Terence) GARLAND Adam.PERFORMANCE IMPROVEMENT COORDINATOR 650 mg at 09/30/17 0338 ondansetron (PF) 4 mg injection (ZOFRAN) 4 mg INTRAVENOUS q 6 H PRN Gloria (Terence) APRN. KiaPERFORMANCE IMPROVEMENT COORDINATOR 4 mg at 09/30/17 033 gabapentin 1,200 mg cap(s) (NEURONTIN) 1,200 mg ORAL DAILY [facility] valsartan 40 mg tab(s) (DIOVAN) 40 mg ORAL DAILY [facility] pramipexole 0.5 mg tab(s) (MIRAPEX) 0.[address] [facility] met[facility]rolol tartrate (short acting) 25 mg tab(s) (LOPRESSOR) 25 mg ORAL q [address] [facility] furosemide 40 mg tab(s) (LASIX) 40 mg ORAL DAILY [facility] DULoxetine 60 mg cap(s) (CYMBALTA) 60 mg ORAL DAILY [facility] pantoprazole DR 40 mg tab(s) (PROTONIX) 40 mg ORAL BID AC (0600/1600) [facility] 40 mg at 09/30/17 0521 digoxin 0.25 mg tab(s) (LANOXIN) 0.25 mg ORAL DAILY [facility] 0.9% NaCl 3-5 mL 3-5 mL INTRAVENOUS q [address] [facility] atorvastatin 10 mg tab(s) (LIPITOR) 10 mg ORAL AT BEDTIME [facility] fenofibrate 200 mg cap(s) (LOFIBRA) 200 mg ORAL DAILY WITH BREAKFAST [facility] Prescriptions Prior to Admission: cyanocobalamin, vitamin B-12, (B-12 COMPLIANCE) 1,000 mcg/mL kit Take 1,000 mcg by mouth once daily. Disp: Rfl: DIGOXIN, BULK, MISC 0.25 mg once daily. Disp: Rfl: docusate sodium (COLACE) 100 mg capsule Take 100 mg by mouth once daily. Disp: Rfl: DULoxetine (CYMBALTA) 60 mg capsule Take 60 mg by mouth once daily. Disp: Rfl: furosemide (LASIX) 40 mg tablet Take 40 mg by mouth once daily. Disp: Rfl: gabapentin (NEURONTIN) 600 mg tablet Take 1,200 mg by mouth once daily. Disp: Rfl: potassium chloride (KLOR-CON 10 ORAL) Take 20 mEq by mouth twice daily. Disp: Rfl: metoprolol tartrate, short acting, (LOPRESSOR) 100 mg tablet Take 25 mg by mouth once daily. Disp: Rfl: pramipexole (MIRAPEX) 0.5 mg tablet Take 0.5 mg by mouth three times daily. Disp: Rfl: pravastatin (PRAVACHOL) 40 mg tablet Take 40 mg by mouth once daily. Disp: Rfl: fenofibrate nanocrystallized (TRICOR) 145 mg tablet Take 145 mg by mouth once daily. Disp: Rfl: rivaroxaban (XARELTO) 20 mg tablet Take 20 mg by mouth daily with dinner. Disp: Rfl: tiotropium bromide (SPIRIVA RESPIMAT INHALATION) Inhale as instructed. Disp: Rfl: valsartan (DIOVAN) 40 mg tablet Take 40 mg by mouth once daily. Disp: Rfl: ASPIR-81 81 MG TAB Take one(1) tablet daily. Disp: Rfl: 0 09/29/2017 at Unknown time FOLIC ACID 1 MG TAB Take one(1) tablet daily. Disp: Rfl: 0 09/29/2017 at Unknown time Social History Marital status: Spouse name: Years of education: Number of children: Social History Main Topics Smoking status: Former Smoker Packs/day: 0.00 Years: 0.00 Smokeless status: Never Used Comment: Quit in 1992 FAMILY HISTORY Problem Relation Age of Onset - Cancer Brother - Cancer Maternal Grandfather - Heart Maternal Grandfather - Hypertension Mother - Hypertension Father - Stroke Paternal Grandmother PAST SURGICAL HISTORY Procedure Laterality Date - ANGIOPLASTY 02/14/06 Open Heart Surgery - CABG, ARTERY-VEIN, THREE 02/16/2006 CABG, three grafts ROS: All of the following reviewed and negative except as noted below: GENERAL: Feels much better with blood transfusion therapy, including improved fatigue, and weakness HEENT: no headache, vision changes, eye discomfort, hearing change, ear discomfort, sinus pain, nasal discharge or congestion, oral lesions, soreness, dental problem NECK: no adenopathy, discomfort, change in ROM CHEST: Significant orthopnea and dyspnea on exertion prior to admission, may be improving already HEART: no chest pain, palpitations, syncope ABDOMEN: no nausea, vomiting, constipation, diarrhea, abdominal pain : no dysuria, urgency, frequency, history of stones, incontinence NEURO: no confusion or alteration in consciousness, slurred speach, seizure, focal weakness EXTREMITIES: no new pain, edema, change in ROM HEME: Significant epistaxis, and melena, 4 weeks prior to admission. Had also been on [facility] therapy. PSYCH: no depression, anxiety, agitation PHYSICAL EXAMINATION: see below for new or abnormal findings BP 133/53 Pulse 94 Temp 36.6 ?C (97.9 ?F) (Oral) Resp 20 Ht 172.7 cm (5' 8) Wt 127 kg (280 lb) SpO2 96% BMI 42.57 kg/m2 BMI 42.57 kg/(m2) GENERAL: well nourished and developed; no acute distress; alert and oriented x 3; intact judgement and insight HEENT: no evidence of trauma; cranial nerves intact; eyes clear EOMI; no hearing deficits apparent; nasal passages unremarkable; throat and mucous membranes clear NECK: supple without lymphadenopathy; no JVD; no thyromegaly CHEST: clear bilaterally to auscultation; normal chest movement; no rales or rhonchi HEART: irregular rate and rhythm, normal S1 and S2, no murmurs, clicks, rubs, or gallops ABDOMEN: soft; nondistended; bowel sounds present; no hepatomegaly; no splenomegaly; no tenderness EXTREMITIES: no evidence of clubbing; no cyanosis; no deformity; no joint effusion; no edema NEURO: cranial nerves intact; no focal deficits; no confusion; no tremor; sensorium normal SKIN: no rash; no skin breakdown; no decubitus lesions. Very pale HEME: no bruising; no adenopathy. No obvious bleeding PSYCH: no evidence of depression; no anxiety; no agitation; no apparent hallucinations ABNORMAL/NEW FINDINGS: NONE CBC: Recent Labs 09/30/17 0630 WBC 4.09* RBC 2.13* HB 6.7* HCT 21.1* PLT 51* MCV 99.1* MCH 31.5 MPV 11.6 RDW 21.1* CMP: Recent Labs 09/30/17 0630 09/30/17 0028 NA 138 141 K 4.0 4.1 CHLOR 110* 110* CO2 26 25 BUN 8 8 CREAT 0.81 0.85 GLUC 102* 96 TPROT -- 5.3* CA 7.8* 8.3* TBILI -- 0.7 ALKPHOS -- 76 ALT -- 16 AST -- 14 ANION 6* 10 Heme: No results for input(s): RETICP, ABSRETIC, LD, VAN, FE, TIBC, TRANSFERSAT in the last 24 hours. ASSESSMENT ACTIVE PROBLEM LIST Gib (Gastrointestinal Bleeding) Blood Loss Anemia Chronic Anticoagulation Atrial Fibrillation (Hcc) Primary Lung Adenocarcinoma, Left (Hcc) Coronary Artery Disease Involving [place] Heart Without Angina Pectoris PLAN: Agree with aggressive transfusion therapy Agree with discontinuation of Xarelto, and aspirin Chemotherapy will be on hold Please note that the ultimate goal of his chemotherapy for lung cancer is for cure. Therefore, favor very aggressive therapy and intervention as needed. Reasonably comfortable, we'll follow along with you Bonnie Zavala APRN.[facility] 09/30/2017 9:41 AM Addendum CONSULT: GASTROENTEROLOGY SERVICE SERVICE DATE: 09/30/2017 SERVICE TIME: 9:14 AM REASON FOR CONSULT: GIB REQUESTING PHYSICIAN: Judith Stone PRIMARY CARE PHYSICIAN: Fany Hobson MD Subjective Mr. Durham is a 72 year old male who presented from [facility] for GIB. He stated he normally gets blood transfusions prior to getting chemotherapy. His last dose of chemotherapy was 2 weeks ago. He had lab work done last week for evaluation of his anemia. He believes at that time his hemoglobin was 8.1. He started to have fatigue, SOB, and melanotic stools for about 3 days. He denied abdominal pain, hematochezia, hematemesis, nausea, vomiting, constipation, or diarrhea. He tried to get a sooner appointment with a provider due to his symptoms. Once he informed them of the melena stools he was instructed to proceed to the ED. His hemoglobin was 5 with positive FOBT at [facility] so he transferred to [facility] for GI consult. His last colonoscopy was within 5 years. He stated he never had an EGD. FUNCTIONAL STATUS: Independent PAST MEDICAL HISTORY Diagnosis Date - Coronary atherosclerosis of unspecified type of vessel, alturas or graft Coronary artery disease - Essential hypertension, benign PAST SURGICAL HISTORY Procedure Laterality Date - ANGIOPLASTY 02/14/06 Open Heart Surgery - CABG, ARTERY-VEIN, THREE 02/16/2006 CABG, three grafts FAMILY HISTORY Problem Relation Age of Onset - Cancer Brother - Cancer Maternal Grandfather - Heart Maternal Grandfather - Hypertension Mother - Hypertension Father - Stroke Paternal Grandmother Social History Substance Use Topics - Smoking status: Former Smoker - Smokeless tobacco: Never Used Comment: Quit in 1992 - Alcohol use Not on file Prescriptions Prior to Admission: cyanocobalamin, vitamin B-12, (B-12 COMPLIANCE) 1,000 mcg/mL kit Take 1,000 mcg by mouth once daily. Disp: Rfl: DIGOXIN, BULK, MISC 0.25 mg once daily. Disp: Rfl: docusate sodium (COLACE) 100 mg capsule Take 100 mg by mouth once daily. Disp: Rfl: DULoxetine (CYMBALTA) 60 mg capsule Take 60 mg by mouth once daily. Disp: Rfl: furosemide (LASIX) 40 mg tablet Take 40 mg by mouth once daily. Disp: Rfl: gabapentin (NEURONTIN) 600 mg tablet Take 1,200 mg by mouth once daily. Disp: Rfl: potassium chloride (KLOR-CON 10 ORAL) Take 20 mEq by mouth twice daily. Disp: Rfl: metoprolol tartrate, short acting, (LOPRESSOR) 100 mg tablet Take 25 mg by mouth once daily. Disp: Rfl: pramipexole (MIRAPEX) 0.5 mg tablet Take 0.5 mg by mouth three times daily. Disp: Rfl: pravastatin (PRAVACHOL) 40 mg tablet Take 40 mg by mouth once daily. Disp: Rfl: fenofibrate nanocrystallized (TRICOR) 145 mg tablet Take 145 mg by mouth once daily. Disp: Rfl: rivaroxaban (XARELTO) 20 mg tablet Take 20 mg by mouth daily with dinner. Disp: Rfl: tiotropium bromide (SPIRIVA RESPIMAT INHALATION) Inhale as instructed. Disp: Rfl: valsartan (DIOVAN) 40 mg tablet Take 40 mg by mouth once daily. Disp: Rfl: ASPIR-81 81 MG TAB Take one(1) tablet daily. Disp: Rfl: 0 09/29/2017 at Unknown time FOLIC ACID 1 MG TAB Take one(1) tablet daily. Disp: Rfl: 0 09/29/2017 at Unknown time Current hospital medications: acetaminophen 650 mg tab(s) (TYLENOL) 650 mg ORAL q 6 H PRN ondansetron (PF) 4 mg injection (ZOFRAN) 4 mg INTRAVENOUS q 6 H PRN gabapentin 1,200 mg cap(s) (NEURONTIN) 1,200 mg ORAL DAILY valsartan 40 mg tab(s) (DIOVAN) 40 mg ORAL DAILY pramipexole 0.5 mg tab(s) (MIRAPEX) 0.5 mg ORAL TID metoprolol tartrate (short acting) 25 mg tab(s) (LOPRESSOR) 25 mg ORAL q 12 H furosemide 40 mg tab(s) (LASIX) 40 mg ORAL DAILY DULoxetine 60 mg cap(s) (CYMBALTA) 60 mg ORAL DAILY pantoprazole DR 40 mg tab(s) (PROTONIX) 40 mg ORAL BID AC (0600/1600) digoxin 0.25 mg tab(s) (LANOXIN) 0.25 mg ORAL DAILY 0.9% NaCl 3-5 mL 3-5 mL INTRAVENOUS q 12 H atorvastatin 10 mg tab(s) (LIPITOR) 10 mg ORAL AT BEDTIME fenofibrate 200 mg cap(s) (LOFIBRA) 200 mg ORAL DAILY WITH BREAKFAST Allergies As of Date: 09/29/2017 (No Known Allergies) Fully Assessed 09/29/2017 COMPLETE REVIEW OF SYSTEMS: PAIN ASSESSMENT: Negative for pain, history of chronic pain, or current treatment for a chronic pain condition. GENERAL: No weight loss, malaise or fevers RESPIRATORY: See HPI CARDIOVASCULAR: Negative for chest pain, leg swelling, hypertension, CHF or palpitations GI: See HPI SKIN: Negative for lesions, rash, and itching NEURO: No history of headaches, syncope, paralysis, seizures or tremors Objective PHYSICAL EXAM: Physical Exam Performed: GENERAL: Alert and oriented X 3 in no acute distress, cooperative and following commands SKIN: Skin warm, dry, and intact LUNGS: Lungs clear to auscultation in all lobes bilaterally, 2L 02 via NC CARDIAC: Rhythm: irregularly irregular without murmur, clicks, rubs, or gallops ABDOMEN: Abdomen soft and non-tender with +BS X 4, no distention, guarding, rebound, masses or organomegaly EXTREMITIES: VELA without edema, capillary refill <3 seconds PULSES: 2+ radial BP 125/81 Pulse 92 Temp (Src) 98.2 (Oral) Resp 20 Ht 5' 8 (1.73m) Wt 280 lb (127.0kg) SpO2 98% BMI 42.58 kg/(m2). DATA: Diagnostic tests reviewed for today's visit: Ref. Range 09/29/2017 23:30 09/30/2017 06:30 WBC Latest Ref Range: 4.23 - 9.07 thou/cmm 4.76 4.09 (L) RBC Latest Ref Range: 4.63 - 6.08 mil/cmm 1.46 (L) 2.13 (L) HGB Latest Ref Range: 13.7 - 17.5 g/dL 4.6 (LL) 6.7 (LL) Hematocrit Latest Ref Range: 40.1 - 51.0 % 14.8 (LL) 21.1 (L) Platelet Count Latest Ref Range: 141 - 365 thou/cmm 47 (LL) 51 (L) MCV Latest Ref Range: 83.2 - 95.6 fl 101.4 (H) 99.1 (H) MCH Latest Ref Range: 25.7 - 32.2 pg 31.5 31.5 MCHC Latest Ref Range: 32.3 - 36.5 % 31.1 (L) 31.8 (L) MPV Latest Ref Range: 8.7 - 12.0 fl 11.7 11.6 Impression/Recommendations 1). GIB (gastrointestinal bleeding) Assessment AND Plan: Continue PPI and EGD tomorrow (discussed with Dr. Jordan, last dose of Xarelto was on 09/28/17), monitor H/H, transfuse as needed 2). Blood loss anemia/anemia 2/2 chemotherapy Assessment AND Plan: Continue PPI, monitor H/H, transfuse as needed 3). Chronic anticoagulation-on hold Assessment AND Plan: 4). Atrial fibrillation (HCC)-anticoagulation on hold 2/2 GIB Assessment AND Plan: Defer to primary 5). Primary lung adenocarcinoma, left Assessment AND Plan: Defer to oncology SIGNATURE: Shay Zavala APRN.PERFORMANCE IMPROVEMENT COORDINATOR PATIENT NAME: Jv Durham Jr. DATE: September 30, 2017 TIME: 9:14 AM PAGER: Previous Version Dalia Denney RN, RN 09/30/2017 10:25 AM Signed CARE MANAGEMENT: ASSESSMENT AND DISCHARGE PLAN SERVICE DATE: 09/30/2017 SERVICE TIME: 999 PRIMARY CARE PHYSICIAN: Fany Hobson MD ADMISSION STATUS: Inpatient Needs Prior to Discharge: To Be Determined;OT/PT Evaluation;Other: See Comment (Pt on 3 L NC (uses 2.5 L continuously at home). 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 Health Issues Impacting Discharge Plan: Chronic COPD Last Admission Date: none Is this Within the Past 30 days? No Advance Directive: Current Advance Directive: None Magnetic Locater Assisted with AD Completion: No Unable to Assist Due To:: (Pt declines SW c/s for HCPOA) Health Literacy: 1. How often do you need to have someone help you when you read instructions, pamphlets, or other written material from your doctor or pharmacy? Sometimes - 3 2. How confident are you filling out medical forms by yourself? Somewhat - 3 If Patient scores > 3 on either question, the following interventions were put into place: Forms of communication used with patient and family and Sit with Patient FUNCTIONAL AND COGNITIVE/BEHAVIORAL PRIOR TO ADMISSION: Baseline Mental Status: Alert AND Oriented, Person, Place , Time and Situation Functional Status: Needs Assistance Does Patient Currently Receive Any Community Services or Home Care? None [facility] O2 suppllier Equipment Prior to Admission: Cane - Straight Oxygen 2.5 liters per minute Walker Wheelchair Has the Patient Been in a Jail Facility in the Past 30 days? No SOCIAL: Living Arrangement: Home Lives With: Spouse Financial Resources: Retired Primary Contact: Extended Emergency Contact Information Primary Emergency Contact: Marco Durham Mobile Relation: Spouse Supportive: Yes Other Important Patient Contacts: None Caregiver Assessment: Caregiver is ready, willing and able to meet the patient's needs as recommended by the inter-professional team? Yes Patient's transition needs and plan for meeting these needs: Does the patient have an acute stroke diagnosis, or has the patient had a stroke during this admission? No Medication Adherence: I am convinced of the importance of my prescription medication: Agree completely - 0 I worry that my prescription medication will do more harm than good to me Disagree completely - 0 I feel financially burdened by my [id number] expenses for my prescription medication: Disagree completely - 0 Patient is categorized as low risk < 2 Are you interested in bedside delivery of your medications? No Food Concerns: In the Last Month, Have You had Trouble Getting Food? No trouble getting food During the Last Month, Have You Worried Whether Your Food Would Run Out Before You Had Enough Money to Buy More? No Is the Patient Psychosocially Complex? No ASSESSMENT AND PLAN: Medical Needs: Cancer - active treatment/follow up , Durable Medical Equipment and Obesity Psychosocial Needs: None FREEDOM OF CHOICE EXPLAINED: N/A POTENTIAL TRANSITION PLANS Home To Be Determined Chart reviewed. Met w/ patient. Pt lives w/ assists w/ all ADLS. One story home, one step to enter. Bathroom wheel chair accessible. +RX cov, +DME. Active w/ [facility] and [facility] on [facility] in [place]. Follow for O2 needs. May need PT/OT before DC. Plan now remains return to home w/ spouse at DC. CM to follow for transitional needs. SIGNATURE: Dalia Denney RN PATIENT NAME: Jv Durham Jr. DATE: September 30, 2017 TIME: 10:01 AM PAGER/CONTACT #: Ryann [email or web address] 09/30/2017 3:13 PM Signed NUTRITION THERAPY INITIAL ASSESSMENT SERVICE DATE: 09/30/2017 SERVICE TIME: 11:37 RECOMMENDED MALNUTRITION DIAGNOSIS: NO MALNUTRITION IDENTIFIED NUTRITION CARE PLAN: Problem, Etiology and Signs/Symptoms: Increased nutrient needs calorie/protein related to increased physiological demand as evidenced by pt with lung cancer dx. Intervention: 1. Encouraged adequate oral intake to meet estimated needs Monitor and Evaluation: Goal: Meet >75% of estimated needs Monitor fluid/electrolyte balance Monitor labs, I/Os, vital signs, weight Discharge Nutrition Recommendations: Diet: Heart Healthy Reason for Assessment: MST 2 Per HPI: This is a 72 year old male with PHX of A.fib on Xarelto, Lung cancer undergoing chemotherapy, recurrent epistaxis s/p packing, CAD s/p CABG, CHF, COPD presents with complaints of SOB, fatigue, and melanotic stools X3 days. . Patient reports chronic aspirin and Xarelto use. No recent NSAID use. Denies any abdominal pain, fevers, chills Patient found to have Hgb of 5 with positive FOBT transferred to [facility] due to no GI service available at [place]. Of note patient also states has noted some hematuria during this time Per GI plan is for EGD tomorrow. Active Hospital Problems Diagnosis Date Noted - Blood loss anemia 09/30/2017 - Chronic anticoagulation 09/30/2017 - Atrial fibrillation (HCC) 09/30/2017 - Primary lung adenocarcinoma, left (HCC) 09/30/2017 Overview Note: Hx of wedge resection left lung at [facility] 06/01. Adjuvant chemotherapy-probable carboplatin/alimta - Coronary artery disease involving alturas heart without angina pectoris 09/30/2017 - GIB (gastrointestinal bleeding) 09/29/2017 - Anemia 09/29/2017 Overview Note: Added automatically from request for surgery [id number] - Melena 09/29/2017 Overview Note: Added automatically from request for surgery [id number] - Positive fecal occult blood test 09/29/2017 Overview Note: Added automatically from request for surgery [id number] PAST MEDICAL HISTORY Diagnosis Date - Coronary atherosclerosis of unspecified type of vessel, alturas or graft Coronary artery disease - Essential hypertension, benign PAST SURGICAL HISTORY Procedure Laterality Date - ANGIOPLASTY 02/14/06 Open Heart Surgery - CABG, ARTERY-VEIN, THREE 02/16/2006 CABG, three grafts Present Diet Order: Heart Healthy 2 gm Na Enteral Access: none Nutritional Intake Prior to Admission: >75% estimated energy needs over the past 3 month(s). Met with pt and family in regards to patient's nutritional intake. Pt reports he currently has a good appetite. Pt reports he did lose weight awhile ago, but recently weight has been stable. Pt reports eating at least 3 meals a day and stated he ate 100% of breakfast this morning. Pt's reported that he has been eating better over the past few months. GI symptoms: taste changes Abdominal Exam: abdomen is soft and bowel sounds are normal per clinical documentation Is the patient having any pain that is interfering with oral/enteral intake? No ANTHROPOMETRICS Height: 172.7 cm (5' 8) Admission Weight: 127 kg (280 lb) Current Weight: 127 kg (280 lb) Body mass index is 42.57 kg/(m2). class 3 obesity Weight has decreased by 7.3 kg from 05/19/17 to 06/05/17 representing 5.3 % weight change. Weight has decreased by 4 kg over 4 months representing 3.1 % weight change. Last Wt 09/30/17 : 127 kg (280 lb) 06/05/17 : 131 kg - care everywhere 05/19/17 : 138.3 kg -care everywhere 04/23/17 : 137 kg - care everywhere 04/17/17 : 136.5 kg - care everywhere 07/21/06 : 114.3 kg (252 lb) [place] Body Weight: 70kg Resting Metabolic Rate: 1997 Estimated kilocalorie needs: 2649-0690 kilocalories determined by 30-35 kcal/kg Estimated protein needs: 77-105 grams determined by 1.1-1.5 g/kg [place] weight Estimated fluid needs: 2100 milliliters based on 1 mL per kcal NUTRITION FOCUSED PHYSICAL EXAM: Subcutaneous Fat Loss Orbital No fat loss Triceps No fat loss Mid-axillary at the iliac crest No fat loss Muscle Loss Locations: Temporalis No muscle loss Pectoralis Unable to determine at this time Deltoids Unable to determine at this time Interosseous No muscle loss Latissimus dorsi, trapezius Unable to determine at this time Quadriceps Unable to determine at this time Gastrocnemius Unable to determine at this time Unable to determine some areas of muscle due to pt with adipose tissue. Note BMI 42.57 - Obesity Class III Potential micronutrient deficiency revealed in: No deficiency identified Edema: Yes Lower extremities Mild 1+ and Generalized Ascites: No Assessment of Functional Status: Functional capacity is unrelated to nutrition status Temperature Max in 24 hours: Temp (24hrs), Av.6 ?C (97.9 ?F), Min:36.3 ?C (97.3 ?F), Max:36.8 ?C (98.2 ?F) BP 126/71 Pulse 94 Temp 36.3 ?C (97.3 ?F) (Oral) Resp 18 Ht 172.7 cm (5' 8) Wt 127 kg (280 lb) SpO2 98% BMI 42.57 kg/m2 Recent Labs 09/30/17 0630 09/30/17 0028 GLUC 102* 96 BUN 8 8 CREAT 0.81 0.85 NA 138 141 K 4.0 4.1 CHLOR 110* 110* CO2 26 25 ALB -- 2.8* HB 6.7* -- HCT 21.1* -- WBC 4.09* -- Potential Signs of Inflammation: hyperglycemia and hypoalbuminemia, GI bleed ALLERGIES No Known Allergies Current Facility-Administered Medications: acetaminophen 650 mg tab(s) (TYLENOL) 650 mg ORAL q 6 H PRN ondansetron (PF) 4 mg injection (ZOFRAN) 4 mg INTRAVENOUS q 6 H PRN gabapentin 1,200 mg cap(s) (NEURONTIN) 1,200 mg ORAL DAILY valsartan 40 mg tab(s) (DIOVAN) 40 mg ORAL DAILY pramipexole 0.5 mg tab(s) (MIRAPEX) 0.5 mg ORAL TID metoprolol tartrate (short acting) 25 mg tab(s) (LOPRESSOR) 25 mg ORAL q 12 H furosemide 40 mg tab(s) (LASIX) 40 mg ORAL DAILY DULoxetine 60 mg cap(s) (CYMBALTA) 60 mg ORAL DAILY pantoprazole DR 40 mg tab(s) (PROTONIX) 40 mg ORAL BID AC (0600/1600) digoxin 0.25 mg tab(s) (LANOXIN) 0.25 mg ORAL DAILY 0.9% NaCl 3-5 mL 3-5 mL INTRAVENOUS q 12 H atorvastatin 10 mg tab(s) (LIPITOR) 10 mg ORAL AT BEDTIME fenofibrate 200 mg cap(s) (LOFIBRA) 200 mg ORAL DAILY WITH BREAKFAST Intake/Output 09/29/17 0700 - 09/30/17 0659 09/30/17 07 - 10/01/17 0659 Intake (ml) 982 319 Output (ml) 450 -- Net (ml) 532 319 MNT Billing Type: Initial Assess/15 min 4 units SIGNATURE: Ryann Rangel RD PATIENT NAME: Jv Durham Jr. DATE: September 30, 2017 TIME: 10:24 AM PAGER: [phone] Elroy Hough MD 09/30/2017 11:43 AM Signed INITIAL CONSULT OTOLARYNGOLOGY SERVICE DATE: 09/30/2017 SERVICE TIME: 11:33 AM Jv Durham Jr. is a 72 year old male who is seen at the request of Dr. Arechiga for evaluation of Epistaxis. My findings and recommendations will be communicated to the referring provider via the shared electronic medical record. Subjective CHIEF COMPLAINT: Nosebleeds and obstruction HPI: This is a 72 year old male with PHX of A.fib on Xarelto, Lung cancer undergoing chemotherapy, recurrent epistaxis s/p packing, CAD s/p CABG, CHF, COPD presents with complaints of SOB, fatigue, and melanotic stools X3 days. . Patient reports chronic aspirin and Xarelto use. No recent NSAID use. Denies any abdominal pain, fevers, chills Patient found to have Hgb of 5 with positive FOBT transferred to [facility] due to no GI service available at [place]. Of note patient also states has noted some hematuria during this time. The patient describes use of nasal cannula at home and chronic nose bleeding and scabbing with obstruction that he clears and he uses netipot and has continued difficulty and is currently admitted with Hb 4.6 and now 6.7 and had another transfusion. He is not actively bleeding at this time. PAST MEDICAL HISTORY Diagnosis Date - Coronary atherosclerosis of unspecified type of vessel, alturas or graft Coronary artery disease - Essential hypertension, benign PAST SURGICAL HISTORY Procedure Laterality Date - ANGIOPLASTY 02/14/06 Open Heart Surgery - CABG, ARTERY-VEIN, THREE 02/16/2006 CABG, three grafts FAMILY HISTORY Problem Relation Age of Onset - Cancer Brother - Cancer Maternal Grandfather - Heart Maternal Grandfather - Hypertension Mother - Hypertension Father - Stroke Paternal Grandmother Social History Substance Use Topics - Smoking status: Former Smoker - Smokeless tobacco: Never Used Comment: Quit in 1992 - Alcohol use Not on file cyanocobalamin, vitamin B-12, (B-12 COMPLIANCE) 1,000 mcg/mL kit Take 1,000 mcg by mouth once daily. DIGOXIN, BULK, MISC 0.25 mg once daily. docusate sodium (COLACE) 100 mg capsule Take 100 mg by mouth once daily. DULoxetine (CYMBALTA) 60 mg capsule Take 60 mg by mouth once daily. furosemide (LASIX) 40 mg tablet Take 40 mg by mouth once daily. gabapentin (NEURONTIN) 600 mg tablet Take 1,200 mg by mouth once daily. potassium chloride (KLOR-CON 10 ORAL) Take 20 mEq by mouth twice daily. metoprolol tartrate, short acting, (LOPRESSOR) 100 mg tablet Take 25 mg by mouth once daily. pramipexole (MIRAPEX) 0.5 mg tablet Take 0.5 mg by mouth three times daily. pravastatin (PRAVACHOL) 40 mg tablet Take 40 mg by mouth once daily. fenofibrate nanocrystallized (TRICOR) 145 mg tablet Take 145 mg by mouth once daily. rivaroxaban (XARELTO) 20 mg tablet Take 20 mg by mouth daily with dinner. tiotropium bromide (SPIRIVA RESPIMAT INHALATION) Inhale as instructed. valsartan (DIOVAN) 40 mg tablet Take 40 mg by mouth once daily. ASPIR-81 81 MG TAB Take one(1) tablet daily. FOLIC ACID 1 MG TAB Take one(1) tablet daily. ALLERGIES No Known Allergies COMPLETE REVIEW OF SYSTEMS: Negative except HPI Objective PHYSICAL EXAM: BP 126/71 Pulse 94 Temp 36.3 ?C (97.3 ?F) (Oral) Resp 18 Ht 172.7 cm (5' 8) Wt 127 kg (280 lb) SpO2 98% BMI 42.57 kg/m2 General Appearance: Well-developed, well-nourished, pleasant coop white male in NAD. Communication: Reasonable historian whose voice is normal. Psych/Mental Status: Oriented x 3 and a normal affect. Head/Face: Normocephalic, without evidence of trauma. There are no palpable lesions in the scalp. Facial muscles appear to be functioning normally. Sinuses are nonerythematous and nontender. Temporomandibular joints move satisfactorily and are nontender. Eyes: Extraocular muscles appear intact. Salivary Glands: Parotid/Julián's-normal to palpation without evidence of duct abnormality.Submandibular/[place]'s-without evidence of palpable abnormality and no visible duct lesions. Ears: External ears appear normally formed. Canals appear of normal caliber without inflammatory changes. Minimal cerumen. Visualized tympanic membranes show some chronic changes on otoscopic exam. Nose: External nose is grossly normal. Anterior rhinoscopy finds the mucous membranes to be dry with dried blood clots bilat and obstructing right completely. There is mild septal deviation with prominence of the inferior turbinates. Oral Cavity/Oropharynx: The mucous membranes of the pharynx, lips and tongue appear grossly normal. Dentition is unremarkable. Palate and floor of mouth are intact. Tonsils are atrophic. No blood in pharynx Neck: There are no masses, adenopathy, or thyromegaly and the trachea is midline. The obstructive dried clot was completely obstructing right nasal passage and removed and ant. Septum bloody and silver nitrate used to cauterize. Airway improved [id number] DATA: Diagnostic tests reviewed for today's visit: Most recent labs Assessment Active Problems: GIB (gastrointestinal bleeding) POA: Yes Assessment AND Plan: NA Blood loss anemia POA: Yes Assessment AND Plan: CONTROL EPISTAXIS Chronic anticoagulation POA: Yes Assessment AND Plan: NA Atrial fibrillation (HCC) POA: Yes Assessment AND Plan: NA Primary lung adenocarcinoma, left (HCC) POA: No Assessment AND Plan: NA Coronary artery disease involving alturas heart without angina pectoris POA: Yes Assessment AND Plan: NA Anemia Assessment AND Plan: NA Melena Assessment AND Plan: NA Positive fecal occult blood test Assessment AND Plan: NA EPISTAXIS- LOCAL CARE AND CAUTERIZED RIGHT ANT SEPTUM AND MOIISTURIZATION ORDERED AND MUST NOT USE NASAL CANNULA FOR NOW, ONLY FACE MASK HUMIDIFIED O2. Resolved Problems: * No resolved hospital problems. * SIGNATURE: Elroy Hough MD PATIENT NAME: Jv Durham Jr. DATE: September 30, 2017 TIME: 11:33 AM PAGER/CONTACT #: [phone] LUIS LUI MD, 09/30/2017 12:47 PM Signed INTERNAL MEDICINE PROGRESS NOTE SERVICE DATE: 09/30/2017 SERVICE TIME: 9 am INTERVAL HISTORY: No overnight events Feeling better No further bleed MEDICATIONS: Current hospital medications: acetaminophen 650 mg tab(s) (TYLENOL) 650 mg ORAL q 6 H PRN ondansetron (PF) 4 mg injection (ZOFRAN) 4 mg INTRAVENOUS q 6 H PRN sodium chloride 0.65 % 1 [place] (AYR, OCEAN) 1 [place] EACH NOSTRIL QID sodium chloride-aloe vera topical nasal gel (AYR GEL w/ALOE) INTRANASAL QID gabapentin 1,200 mg cap(s) (NEURONTIN) 1,200 mg ORAL DAILY valsartan 40 mg tab(s) (DIOVAN) 40 mg ORAL DAILY pramipexole 0.5 mg tab(s) (MIRAPEX) 0.5 mg ORAL TID metoprolol tartrate (short acting) 25 mg tab(s) (LOPRESSOR) 25 mg ORAL q 12 H furosemide 40 mg tab(s) (LASIX) 40 mg ORAL DAILY DULoxetine 60 mg cap(s) (CYMBALTA) 60 mg ORAL DAILY pantoprazole DR 40 mg tab(s) (PROTONIX) 40 mg ORAL BID AC (0600/1600) digoxin 0.25 mg tab(s) (LANOXIN) 0.25 mg ORAL DAILY 0.9% NaCl 3-5 mL 3-5 mL INTRAVENOUS q 12 H atorvastatin 10 mg tab(s) (LIPITOR) 10 mg ORAL AT BEDTIME fenofibrate 200 mg cap(s) (LOFIBRA) 200 mg ORAL DAILY WITH BREAKFAST PHYSICAL EXAM: VITAL SIGNS 09/30/17 0645 09/30/17 0710 09/30/17 0933 09/30/17 1153 BP: 133/53 125/81 126/71 Pulse: 94 92 94 Resp: Temp: 36.6 ?C (97.9 ?F) 36.8 ?C (98.2 ?F) 36.3 ?C (97.3 ?F) TempSrc: Oral Oral Oral SpO2: 96% 98% 98% 98% Weight: Height: Temp (24hrs), Av.6 ?C (97.9 ?F), Min:36.3 ?C (97.3 ?F), Max:36.8 ?C (98.2 ?F) INTAKE/OUTPUT Intake/Output Summary (Last 24 hours) at 09/30/17 1242 Last data filed at 09/30/17 0933 Gross per 24 hour Intake 1301 ml Output 450 ml Net 851 ml General: Awake and alert, in no distress, cooperative Neck: Supple Cardiac: RRR, S1S2 with no MGR Lungs: Clear to auscultation bilaterally Abdomen: Soft non-tender, non-distended, normal bowel sounds Extremities: No edema. LAB DATA: CBC: Recent Labs 09/30/17 1145 09/30/17 0630 09/29/17 2330 WBC -- 4.09* 4.76 HB 7.6* 6.7* 4.6* HCT 23.7* 21.1* 14.8* PLT -- 51* 47* MCV -- 99.1* 101.4* COAG: No results for input(s): APTT, INR in the last 168 hours. BMP: Recent Labs 09/30/17 0630 09/30/17 0028 GLUC 102* 96 NA 138 141 K 4.0 4.1 CHLOR 110* 110* CO2 26 25 ANION 6* 10 BUN 8 8 CREAT 0.81 0.85 CHEM: Recent Labs 09/30/17 0630 09/30/17 0028 ALB -- 2.8* TPROT -- 5.3* CA 7.8* 8.3* ASSESSMENT AND PLAN: # Acute on Chronic anemia - secondary to GIB vs epistaxis vs chemotherapy. Holding xarelto. Transfusing PRBCs Monitor H/H Q8H for next 24 hours GI consulted, c/w PPI for EGD tomorrow ENT consulted,Local care, AVOID NASAL CANULA Heme/Onc consulted # CAD s/p CABG - con't metoprolol, statin, valsartan. Stable. ASA on hold. # COPD - stable Con't bronchodilators PRN. # A.Fib - Rate controlled with metoprolol. Holding OAC due to GI Bleed ? Code Status: Full Code. Ok for intubation for short term only ? ? VTE Prophylaxis: SCDs SIGNATURE: LUIS LUI MD PATIENT NAME: Jv Durham Jr. DATE: September 30, 2017 TIME: 12:42 PM Bonnie Falcon MD 10/01/2017 8:06 AM Signed JV DURHAM JR. 72 year old HEMATOLOGY/MEDICAL ONCOLOGY CONSULTATION: Lung Cancer, GI Bleeding, Anticoagulation with Xarelto Plus Aspirin Subjective HPI: 72-year-old male, undergoing chemotherapy for recent diagnosis of lung cancer, on anticoagulation with Xarelto and aspirin, admitted with bright red blood per rectum ?3, associated with generalized fatigue, weakness, dyspnea on exertion. He has been transferred to [facility] for GI evaluation. In relation to his lung cancer, he is status post wedge resection of his left upper lobe in May 2017 at the [facility]. He was found to have a T2a and NX M0 malignancy, because of significant scarring, appropriate and usual node sampling could not be performed. Because of this, he has proceeded with adjuvant chemotherapy, and by his description, this is likely carboplatin/Alimta therapy. In relation to his Xarelto, this apparently is being utilized secondary to diagnosis of chronic atrial fibrillation. He also utilizes aspirin, and has been having problems with significant epistaxis 4 weeks. Current Facility-Administered Medications: alteplase (CATHFLO) injection 2 mg 2 mg INTRALUMINAL ONCE Gloria (Terence) GARLAND Adam.TERENCE acetaminophen 650 mg tab(s) (TYLENOL) 650 mg ORAL q 6 H PRN Gloria (Terence) APRN. KiaPERFORMANCE IMPROVEMENT COORDINATOR 650 mg at 09/30/17 0338 ondansetron (PF) 4 mg injection (ZOFRAN) 4 mg INTRAVENOUS q 6 H PRN Gloria (Terence) APRN. KiaPERFORMANCE IMPROVEMENT COORDINATOR 4 mg at 09/30/17 0338 sodium chloride 0.65 % 1 [place] (AYR, OCEAN) 1 [place] EACH NOSTRIL QID Elroy Hough 1 [place] at 09/30/17 1554 sodium chloride-aloe vera topical nasal gel (AYR GEL w/ALOE) INTRANASAL QID Elroy Hough gabapentin 1,200 mg cap(s) (NEURONTIN) 1,200 mg ORAL DAILY Judith Sara Qavi 1,200 mg at 09/30/17 0828 valsartan 40 mg tab(s) (DIOVAN) 40 mg ORAL DAILY Judith Sara Qavi 40 mg at 09/30/17 0828 pramipexole 0.5 mg tab(s) (MIRAPEX) 0.5 mg ORAL TID Judith Sara Qavi 0.5 mg at 09/30/17 2208 metoprolol tartrate (short acting) 25 mg tab(s) (LOPRESSOR) 25 mg ORAL q 12 H Judith Sara Qavi 25 mg at 09/30/17 220 furosemide 40 mg tab(s) (LASIX) 40 mg ORAL DAILY Judith Sara Qavi 40 mg at 09/30/17 0830 DULoxetine 60 mg cap(s) (CYMBALTA) 60 mg ORAL DAILY Judith Sara Qavi 60 mg at 09/30/[address] 40 mg tab(s) (PROTONIX) 40 mg ORAL BID AC (0600/1600) Judith Sara Qavi 40 mg at 09/30/17 1554 digoxin 0.25 mg tab(s) (LANOXIN) 0.25 mg ORAL DAILY Judith Sara Qavi 0.25 mg at 09/30/17 0831 0.9% NaCl 3-5 mL 3-5 mL INTRAVENOUS q 12 H Judith Sara Qavi 5 mL at 09/30/17 220 atorvastatin 10 mg tab(s) (LIPITOR) 10 mg ORAL AT BEDTIME Judith Sara Qavi 10 mg at 09/30/17 220 fenofibrate 200 mg cap(s) (LOFIBRA) 200 mg ORAL DAILY WITH BREAKFAST Judith Sara Qavi 200 mg at 09/30/17 0829 Prescriptions Prior to Admission: cyanocobalamin, vitamin B-12, (B-12 COMPLIANCE) 1,000 mcg/mL kit Take 1,000 mcg by mouth once daily. Disp: Rfl: DIGOXIN, BULK, MISC 0.25 mg once daily. Disp: Rfl: docusate sodium (COLACE) 100 mg capsule Take 100 mg by mouth once daily. Disp: Rfl: DULoxetine (CYMBALTA) 60 mg capsule Take 60 mg by mouth once daily. Disp: Rfl: furosemide (LASIX) 40 mg tablet Take 40 mg by mouth once daily. Disp: Rfl: gabapentin (NEURONTIN) 600 mg tablet Take 1,200 mg by mouth once daily. Disp: Rfl: potassium chloride (KLOR-CON 10 ORAL) Take 20 mEq by mouth twice daily. Disp: Rfl: metoprolol tartrate, short acting, (LOPRESSOR) 100 mg tablet Take 25 mg by mouth once daily. Disp: Rfl: pramipexole (MIRAPEX) 0.5 mg tablet Take 0.5 mg by mouth three times daily. Disp: Rfl: pravastatin (PRAVACHOL) 40 mg tablet Take 40 mg by mouth once daily. Disp: Rfl: fenofibrate nanocrystallized (TRICOR) 145 mg tablet Take 145 mg by mouth once daily. Disp: Rfl: rivaroxaban (XARELTO) 20 mg tablet Take 20 mg by mouth daily with dinner. Disp: Rfl: tiotropium bromide (SPIRIVA RESPIMAT INHALATION) Inhale as instructed. Disp: Rfl: valsartan (DIOVAN) 40 mg tablet Take 40 mg by mouth once daily. Disp: Rfl: ASPIR-81 81 MG TAB Take one(1) tablet daily. Disp: Rfl: 0 09/29/2017 at Unknown time FOLIC ACID 1 MG TAB Take one(1) tablet daily. Disp: Rfl: 0 09/29/2017 at Unknown time Social History Marital status: Spouse name: Years of education: Number of children: Social History Main Topics Smoking status: Former Smoker Packs/day: 0.00 Years: 0.00 Smokeless status: Never Used Comment: Quit in 1992 FAMILY HISTORY Problem Relation Age of Onset - Cancer Brother - Cancer Maternal Grandfather - Heart Maternal Grandfather - Hypertension Mother - Hypertension Father - Stroke Paternal Grandmother PAST SURGICAL HISTORY Procedure Laterality Date - ANGIOPLASTY 02/14/06 Open Heart Surgery - CABG, ARTERY-VEIN, THREE 02/16/2006 CABG, three grafts ROS: All of the following reviewed and negative except as noted below: GENERAL: Feels much better with blood transfusion therapy, including improved fatigue, and weakness HEENT: no headache, vision changes, eye discomfort, hearing change, ear discomfort, sinus pain, nasal discharge or congestion, oral lesions, soreness, dental problem NECK: no adenopathy, discomfort, change in ROM CHEST: Significant orthopnea and dyspnea on exertion prior to admission, may be improving already HEART: no chest pain, palpitations, syncope ABDOMEN: no nausea, vomiting, constipation, diarrhea, abdominal pain : no dysuria, urgency, frequency, history of stones, incontinence NEURO: no confusion or alteration in consciousness, slurred speach, seizure, focal weakness EXTREMITIES: no new pain, edema, change in ROM HEME: Significant epistaxis, and melena, 4 weeks prior to admission. Had also been on iron therapy. PSYCH: no depression, anxiety, agitation PHYSICAL EXAMINATION: see below for new or abnormal findings BP (!) 110/45 Pulse 85 Temp 36.6 ?C (97.9 ?F) (Oral) Resp 18 Ht 172.7 cm (5' 8) Wt 127 kg (280 lb) SpO2 98% BMI 42.57 kg/m2 BMI 42.57 kg/(m2) GENERAL: well nourished and developed; no acute distress; alert and oriented x 3; intact judgement and insight HEENT: no evidence of trauma; cranial nerves intact; eyes clear EOMI; no hearing deficits apparent; nasal passages unremarkable; throat and mucous membranes clear NECK: supple without lymphadenopathy; no JVD; no thyromegaly CHEST: clear bilaterally to auscultation; normal chest movement; no rales or rhonchi HEART: irregular rate and rhythm, normal S1 and S2, no murmurs, clicks, rubs, or gallops ABDOMEN: soft; nondistended; bowel sounds present; no hepatomegaly; no splenomegaly; no tenderness EXTREMITIES: no evidence of clubbing; no cyanosis; no deformity; no joint effusion; no edema NEURO: cranial nerves intact; no focal deficits; no confusion; no tremor; sensorium normal SKIN: no rash; no skin breakdown; no decubitus lesions. Very pale HEME: no bruising; no adenopathy. No obvious bleeding PSYCH: no evidence of depression; no anxiety; no agitation; no apparent hallucinations ABNORMAL/NEW FINDINGS: NONE CBC: Recent Labs 10/01/17 0349 09/30/17 0630 WBC -- -- 4.09* RBC -- -- 2.13* HB 7.4* < > 6.7* HCT 22.4* < > 21.1* PLT -- -- 51* MCV -- -- 99.1* MCH -- -- 31.5 MPV -- -- 11.6 RDW -- -- 21.1* < > = values in this interval not displayed. CMP: Recent Labs 09/30/17 0630 NA 138 K 4.0 CHLOR 110* CO2 26 BUN 8 CREAT 0.81 GLUC 102* CA 7.8* ANION 6* Heme: No results for input(s): RETICP, ABSRETIC, LD, VAN, FE, TIBC, TRANSFERSAT in the last 24 hours. ASSESSMENT ACTIVE PROBLEM LIST Gib (Gastrointestinal Bleeding) Blood Loss Anemia Chronic Anticoagulation Atrial Fibrillation (Hcc) Primary Lung Adenocarcinoma, Left (Hcc) Coronary Artery Disease Involving [place] Heart Without Angina Pectoris Anemia Melena Positive Fecal Occult Blood Test PLAN: Agree with aggressive transfusion therapy H/h stable, will dc q 8 hr but will obtain a CBC at noon and then daily. Need to also monitor plt and wbc given recent chemotherapy and need to make decisions regarding anticoagulation. -agrees to another unit of PRBC, still dyspneic w exertion and orthopneic Agree with discontinuation of Xarelto, and aspirin. Xarelto will continue to be held at discharge, until he follows up with his local oncologist. Possible resumption of aspirin before discharge. Appreciate ENT evaluation, await GI evaluation to be performed today. Chemotherapy will be on hold Please note that the ultimate goal of his chemotherapy for lung cancer is for cure. Therefore, favor very aggressive therapy and intervention as needed. Reasonably comfortable, we'll follow along with you Bonnie Hough MD 10/01/2017 8:52 AM Signed Doing better and not bleeding. Off nasal cannula and using saline gel and drops. Should send home with him. No blood in pharynx and airway improved nasally and should continue to progress if adheres to epistaxis precautions. Thanks, Will see again as needed or F/u as outpatient. Saira French, PT, PT 10/01/2017 9:28 AM Signed Physical Therapy Evaluation SERVICE DATE: 10/01/2017 SERVICE TIME: 839 to 904 ROOM: [id number] ([facility] PRE POST-03) Recommended Discharge Disposition: Home PT Recommended Discharge Disposition Comments: Patient demonstrates near baseline mobility. However, due to current medical status would benefit from continued skilled PT Anticipated Discharge Needs: Physical Assist at Home;Supervision at Home Physical Assist at Home for: Ambulation;Cleaning;Laundry;Meals;Stairs;Safety Supervision at Home due to: Other: See Comment (change in medical status) PT Recommendations to Nursing: Ambulate with device;To bathroom;In halls;Transfer to/from chair;OOB for Meals;Utilize bed in chair position;Sit at edge of bed;With assist of 1 person Device: Wheeled Walker PT 6 Clicks Score: 17 Precautions/Activity Restrictions: Fall Risk;Lines/Tubes/Drains Precaution/Activity Restriction Comments: 3L O2 ASSESSMENT : Patient presents with personal factors, comorbidities and results of the PT examination that require moderate complexity decision making. The patient requires skilled physical therapy to address multiple PT problems in order for the patient to return to a baseline functional level. Patient Disposition at Start of Session: Supine in Bed Patient Disposition at End of Session: OOB in Chair;Call [place] in Reach;Other: See Comment (nurse present in room) Tolerated Full Session (fatigued by end) Physical Therapy Problem List: Education Deficit;Safety Deficits;Decreased Strength;Functional Mobility Impairment;Balance Impaired Patient /Caregiver Goals: Go Home Goals for Plan of Care: Rolling with: Independent Transfer supine to/from sit with: Independent Transfer sit to/from stand with: Supervision Ambulate with: Supervision Distance: 25x2 Device: Wheeled Walker Goal: Patient able to tolerate 10 minutes of continuous activity Goal: Patient able to perform B LE general strengthening Rehab Potential: Good PLAN: Treatment Frequency (times per week): 5 (1-5) Current admission Treatment Interventions: Education;Energy Conservation Training;Joint Mobility;Strengthening;Functional Mobility Training;Balance Training;Neuromuscular Re-education Plan of Care developed with: Patient TREATMENT INTERVENTIONS: Therapy Diagnosis: Reduced mobility-other;Muscle Weakness (generalized);Unsteadiness on feet;Abnormalities of gait and mobility-other Interventions Provided: Evaluation;Therapeutic Activity (67537);Gait Training (25859) $ Evaluation-Moderate (21694) Billed Units: 1 unit Therapeutic Activity (59237) Treatment Minutes: 5 0 units Skilled Intervention(s): Instructed patient in log roll technique Instructed patient in supine to sit pushing with upper extremities to sit up Instruction in sit to and from stand technique with proper hand placement and body positioning at edge of bed/chair Education with energy conservation while endurance is low Education with Proper breathing technique - since current O2 level is higher than baseline Gait Training (90396) Treatment Minutes: 8 1 unit Skilled Intervention(s): Instruction in sit to stand technique with proper hand placement and body positioning at edge of bed/chair, Instruction in stand to sit technique with LE's touching chair/bed and reaching back for surface - verbal cuing multiple times Instruction in sequencing, gait pattern, Instruction in correction of gait deviations - importance to stay within front wheeled walker during ambulation and direction changes Instruction in use of equipment, cues for sequence and pattern - to promote fall prevention Total Timed Code Treatment Minutes: 13 Total Treatment Time (minutes): 25 FUNCTIONAL G CODE: PT 6 Clicks Score: 17 (10/01/17839) Mobility: Walking and Moving Around Current Status (G8978): CK (10/01/17839) Mobility: Walking and Moving Around Goal Status (G8979): CJ (10/01/17839) Based on clinical assessment and the score on the 6 Clicks Functional Assessment Tool, the G code and corresponding severity modifiers are documented above. SUBJECTIVE: Current Hospital Course: Chart reviewed; . 72 year old male presented to hospital due to shortness of breath, fatigue and melanotic stools for a few days. Active Hospital Problems Diagnosis - Obesity, Class III, BMI >= 40 E66.01 - Blood loss anemia - Chronic anticoagulation - Atrial fibrillation (HCC) - Primary lung adenocarcinoma, left (HCC) Hx of wedge resection left lung at [facility] 06/01. Adjuvant chemotherapy-probable carboplatin/alimta - Coronary artery disease involving [place] heart without angina pectoris - GIB (gastrointestinal bleeding) - Anemia Added automatically from request for surgery [id number] - Melena Added automatically from request for surgery [id number] - Positive fecal occult blood test Added automatically from request for surgery [id number] PAST MEDICAL HISTORY Diagnosis Date - Coronary atherosclerosis of unspecified type of vessel, [place] or graft Coronary artery disease - Essential hypertension, benign PAST SURGICAL HISTORY Procedure Laterality Date - ANGIOPLASTY 02/14/06 Open Heart Surgery - CABG, ARTERY-VEIN, THREE 02/16/2006 CABG, three grafts Reason for Physical Therapy Consult : progressive mobility protocol Relevant Past Medical History: COPD, CABG. Lung CA - active chemo, parkinsons disease Patient Report: Lying in bed upon arrival. Denies any pain/discomfort. Agreeable to PT Home Environment Patient Lives With: Significant Other ( in 1 story house) Assistance Available: 24 Hour Entry To Home: Stairs Number Of Stairs Into Home: 1 Tub/Shower Type: walkin with grab bars and bench Laundry: does Equipment Owned: Cane;Grab Bars-Shower;Grab Bars-Toilet;Wheeled Walker;Rollator;Shower Bench;Wheelchair;Home Oxygen ([place] made house handicap accessable) Prior Functional Level: Required Assistance Assistance Required With: Cleaning;Laundry;Meals;Stairs;Safety Prior Functional Level Comments: Patient states uses his walker/rollator to ambulate short distances. Since chemo his activity level has decreased. Normally up moving around an drives OBJECTIVE: Range Of Motion: Within Functional Limits Strength: Within Functional Limits Except Location Strength Not WFL: Upper Extremity;Lower Extremity Left Upper Extremity Strength: 4/5 Right Upper Extremity Strength: 4/5 Left Lower Extremity Strength: 4/5 Right Lower Extremity Strength: 4/5 CURRENT FUNCTIONAL STATUS: Current Functional Mobility Assist Level Additional Information Rolling Modified Independent Supine to Sit Modified Independent Sit to Supine Scooting Independent Sit to Stand Stand By Assistance Stand to Sit Stand By Assistance Bed to Chair Toilet/Commode Gait Contact Guard Assistance Gait Device: Wheeled Walker Gait Distance (feet): 15x2 Stairs Curb Step Car Transfer General Gait Deviations: Joellen decreased;Flexed trunk posture Patient set up in chair with call light and phone in reach on bedside table. Advised to use call light and wait for assist to get back to bed Nurse present in room. Please see discipline specific clinical documentation flowsheet for complete details for this therapy evaluation/treatment. SIGNATURE: Saira French PT PATIENT NAME: Jv Durham Jr. DATE: October 01, 2017 TIME: 9:23 AM PAGER/CONTACT #: [phone] Lashanda Gasca RN, RN 10/01/2017 9:49 AM Signed PRE OP LEARNING ASSESSMENT PROCEDURE/SURGERY: GI PROCEDURES: EGD READINESS TO LEARN COGNITIVE ABILITY: Alert and oriented MOTIVATION TO LEARN: Eager FAMILY SUPPORT: None - Unavailable/disinterested PATIENT LEARNS BEST BY: Verbal Instruction FACTORS AFFECTING LEARNING: None PHYSICAL LIMITATIONS AFFECTING LEARNING: None Electronically Signed By: Lashanda Gasca RN In Department: [place] [id number] ONCOLOGY Morgan Ro DO 10/01/2017 10:28 AM Addendum ANESTHESIOLOGY DAY OF SURGERY NOTE SERVICE DATE: 10/01/2017 SERVICE TIME: 10:26 AM : 1945 Procedure(s) (LRB): EGD (Left) Surgeon(s): [place] Jordan Estimated body mass index is 42.57 kg/(m2) as calculated from the following: Height as of this encounter: 172.7 cm (5' 8). Weight as of this encounter: 127 kg (280 lb). Most recent hematocrit and potassium results: Hematocrit 22.4 10/01/2017 Potassium 4.0 09/30/2017 ANES DOS/PREOP NOTE: Vitals: 09/30/17 1950 09/30/17 1954 10/01/17 0600 10/01/17 0900 BP: (!) 117/46 (!) 110/45 126/57 (!) 105/47 Pulse: 85 78 75 Resp: Temp: 36.6 ?C (97.9 ?F) 36.6 ?C (97.9 ?F) TempSrc: Oral Oral SpO2: 98% 100% 100% Weight: Height: ACTIVE PROBLEM LIST Gib (Gastrointestinal Bleeding) Blood Loss Anemia Chronic Anticoagulation Atrial Fibrillation (Hcc) Primary Lung Adenocarcinoma, Left (Hcc) Coronary Artery Disease Involving [place] Heart Without Angina Pectoris Anemia Melena Positive Fecal Occult Blood Test Obesity, Class III, BMI >= 40 E66.01 PAST MEDICAL HISTORY Diagnosis Date - Coronary atherosclerosis of unspecified type of vessel, alt[place] or graft Coronary artery disease - Essential hypertension, benign PAST SURGICAL HISTORY Procedure Laterality Date - ANGIOPLASTY 02/14/06 Open Heart Surgery - CABG, ARTERY-VEIN, THREE 02/16/2006 CABG, three grafts FAMILY HISTORY Problem Relation Age of Onset - Cancer Brother - Cancer Maternal Grandfather - Heart Maternal Grandfather - Hypertension Mother - Hypertension Father - Stroke Paternal Grandmother Social History: Social History Substance Use Topics - Smoking status: Former Smoker - Smokeless tobacco: Never Used Comment: Quit in 1992 - Alcohol use No No current facility-administered medications on file prior to encounter. Current Outpatient Prescriptions on File Prior to Encounter: ASPIR-81 81 MG TAB Take one(1) tablet daily. FOLIC ACID 1 MG TAB Take one(1) tablet daily. Current Facility-Administered Medications: acetaminophen 650 mg tab(s) (TYLENOL) 650 mg ORAL q 6 H PRN Gloria Ruiz) APRN. KiaPERFORMANCE IMPROVEMENT COORDINATOR 650 mg at 09/30/17 0338 ondansetron (PF) 4 mg injection (ZOFRAN) 4 mg INTRAVENOUS q 6 H SANTOSN Gloria (Small Business Sales Representative) APRN. [employer]PERFORMANCE IMPROVEMENT COORDINATOR 4 mg at 09/30/17 0338 sodium chloride 0.65 % 1 [place] (AYR, OCEAN) 1 [place] EACH NOSTRIL QID Elroy Hough 1 [place] at 09/30/17 1554 sodium chloride-aloe vera topical nasal gel (AYR GEL w/ALOE) INTRANASAL QID Elroy Hough gabapentin 1,200 mg cap(s) (NEURONTIN) 1,200 mg ORAL DAILY Judith Sara Qavi 1,200 mg at 09/30/17 0828 valsartan 40 mg tab(s) (DIOVAN) 40 mg ORAL DAILY Judith Sara Qavi 40 mg at 09/30/17 0828 pramipexole 0.5 mg tab(s) (MIRAPEX) 0.5 mg ORAL TID Judith Sara Qavi 0.5 mg at 09/30/172207 metoprolol tartrate (short acting) 25 mg tab(s) (LOPRESSOR) 25 mg ORAL q 12 H Judith Sara Qavi 25 mg at 09/30/172206 furosemide 40 mg tab(s) (LASIX) 40 mg ORAL DAILY Judith Sara Qavi 40 mg at 09/30/17 0830 DULoxetine 60 mg cap(s) (CYMBALTA) 60 mg ORAL DAILY Judith Sara Qavi 60 mg at 09/30/[address] 40 mg tab(s) (PROTONIX) 40 mg ORAL BID AC (0600/1600) Judith Sara Qavi 40 mg at 10/01/17 0455 digoxin 0.25 mg tab(s) (LANOXIN) 0.25 mg ORAL DAILY Judith Sara Qavi 0.25 mg at 09/30/17 0831 0.9% NaCl 3-5 mL 3-5 mL INTRAVENOUS q 12 H Judith Sara Qavi 5 mL at 09/30/17 220 atorvastatin 10 mg tab(s) (LIPITOR) 10 mg ORAL AT BEDTIME Judith Sara Qavi 10 mg at 09/30/172206 fenofibrate 200 mg cap(s) (LOFIBRA) 200 mg ORAL DAILY WITH BREAKFAST Judith Yousif Qavi 200 mg at 09/30/17 0829 Allergies: ALLERGIES No Known Allergies DOS EXAM: Adequate NPO status: Yes Anesthetic risks, benefits, alternatives, personnel and consent discussed: Yes Patient agrees to proceed: Yes Previous Anesthesia: No history of adverse event. Airway Assessment: MP 2; Neck ROM: Full ROM without neurologic symptoms; Airway Evaluation: Thick neck Symptoms of Sleep Apnea: Hypertension, BMI > 35, Age over 50 (72 year old) and Male gender Dentition: Poor dentition Additional Physical Exam: Lungs: Patient health status unchanged since recent history and physical. See history and physical for exam findings. Cardiac: Patient health status unchanged since recent history and physical. See history and physical for exam findings. Additional Pertinent Findings: N/A Blood Products: Not anticipated for this procedure. Anesthetic Plan: MAC with Sedation Pain Management Plan: Parenteral or Oral ASA Class: 4 Other Medical Problems: lung CA on chemo, acute on chronic anemia, CAD s/p CABG, severe epistaxis now resolved Chronic Beta Taisha medication administered within 24 hours: Yes I have interviewed and examined the patient. I have reviewed the medical record and/or the pre-anesthesia evaluation, pertinent labs, and test results. Significant changes in the patient's condition since the History and Physical, not otherwise documented in primary service progress notes: No This contains updated information obtained within 48 hours of Surgery/Procedure. SIGNATURE: Morgan Ro DO PATIENT NAME: Jv Durham Jr. DATE: October 01, 2017 TIME: 10:26 AM CSN: [id number] Previous Version Ivis Rudd RN, RN 10/01/2017 10:38 AM Signed CARE MANAGEMENT PROGRESS NOTE SERVICE DATE: 10/01/2017 SERVICE TIME: 10:36 AM LOS: 2 days Chart reviewed. Pt currently off floor for EGD. PT recommending home PT. [facility] referral and cm needs to follow for other needs. Treatment for Lung cancer is for CURE. Continuing aggressive treatment. SIGNATURE: Ivis Rudd RN PATIENT NAME: Jv Durham Jr. DATE: October 01, 2017 TIME: 10:36 AM PAGER/CONTACT #: [phone] [facility] Office Coord 10/01/2017 10:47 AM Signed WARP PICKER NOTE SERVICE DATE: 10/01/2017 SERVICE TIME: 1447 Referral: Home Care referral received by: CM Will continue to follow for physician orders SIGNATURE: Keira Viveros Office Coord PATIENT NAME: Jv Durham Jr. DATE: October 01, 2017 TIME: 10:47 AM CARDIOLOGY VISIT Observed: 09/25/2017 Status: F Source: IVIS REPORT 4:05 PM [facility] REPOSITORY [facility] [address] [place] [address] OFFICE VISIT Date of Service: 09/25/17 MR#: [id number] Acct: [id number] Name: JV DURHAM Jr. Rep #: [id number] : 1945 Provider: Michoacano Germain MD Age/Sex: 72/M Location: [facility] Status: Signed HPI HPI Chief Complaint: Routine [...] RVSP of 60 mmHg., Moderate pulmonary hypertension. May 2013 patient had right common iliac stent placement and left common iliac stent placement at [facility]. Heart cath from April 2013 showed [...] but no CPAP machine. We attempted DC cardioversion in the past, but unfortunately this was unsuccessful. Patient now returns for routine follow-up. The patient has had several mechanical falls but no syncope. When the patient walks with a cane he adds tendency [...] surgeon was unable to assess his lymph nodes, and was done for precautionary reasons. He [...] at this time. Patient was in his body repairer office yesterday and was found to have [...] Blood Pressure Position Standing 09/25/17 Pulse Rate 120 Intake Visit Reasons: per PK Allergies No Known Allergies Allergy (Verified 09/25/17 15:16) Medications Cyanocobalamin (Vitamin B-12) [Vitamin B-12] 1,000 mcg PO DAILY 05/06/13 [History Confirmed 09/25/17] Docusate Sodium [Colace] 100 mg PO BID 05/06/13 [History Confirmed 09/25/17] Fenofibrate [Tricor] 145 mg PO DAILY 05/06/13 [History Confirmed 09/25/17] Folic Acid 1 mg PO DAILY@0800 05/06/13 [History Confirmed 09/25/17] Potassium Chloride [Klor-Con 10] 20 meq PO BID 05/06/13 [History Confirmed 09/25/17] Tiotropium [place] [Spiriva 18 MCG] 1 puff INHALATION DAILY 05/06/13 [History Confirmed 09/25/17] Valsartan [Diovan] 80 mg PO DAILY 05/06/13 [History Confirmed 09/25/17] Vit A/Vit C/Vit E/Zinc/Copper [Icaps Areds Formula Tablet] 1 ea PO BID 05/06/13 [History Confirmed 09/25/17] Duloxetine HCl 60 mg PO QHS 12/04/16 [...] PO BID tab 09/25/17 [History Confirmed 09/25/17] metoprolol tartrate 100 mg tablet 50 mg PO QDAY tab 09/25/17 [History Confirmed 09/25/17] pravastatin 40 mg tablet 40 mg PO QHS 09/25/17 [History Confirmed 09/25/17] [facility] Medical History Secondary pulmonary arterial hypertension (Chronic) Atherosclerosis of coronary artery of alturas heart without angina pectoris (Chronic) Primary malignant [...] Positive for fatigue and weakness; negative for difficulty sleeping, excessive sweating, frequent falls or headache(s) Eyes Eyes: Negative for loss of peripheral vision, transient loss of vision, blurry vision or double vision ENT ENT: Positive for Nosebleed/epistaxis (frequent nose bleeds.) and dizziness; negative for balance problems or headache(s) Cardio Chest Pain: No Edema: None Muscle aches with walking: None Resp Respiratory: Negative for SOB with activity, SOB at rest, SOB orthopnea\SOB lying down or paroxysmal nocturnal dyspnea Additional Details: continuous O2 GI GI: Negative nausea or heartburn : Negative for hematuria Musc Musc: Negative for muscle aches/ myalgia, muscle weakness, joint pain or balance problems Skin Skin: Negative non-healing lesions, unusual bruising or rash Neuro Neuro: Positive for lightheadedness, orthostatic symptoms, weakness and dizziness; negative for blurry vision, double vision, frequent falls or headache(s) Chivo Hematologic/Lymphatic: Negative for easy bruising Endo Endo: Positive for fatigue; negative for increased thirst/drinking or excessive sweating Psych [...] Plan 1. Atherosclerosis of coronary artery of alturas heart without angina pectoris I25.10 CABG x 2 HERRERA-LAD, SVG-OM 02/14/2006 [id number] anastomosis-LAD w/ Taxus 2.75 x 8 mm and POBA- PDA 12/23/2006 Plan 1. Coronary artery disease: No anginal symptoms at this time. I believe the patient's primary struggle is his hypotension due to a combination of chemotherapy, anemia, as well as polypharmacy with antihypertensive therapy with respect to his coronary disease, mild LV dysfunction, and pulmonary hypertension. The patient's valsartan and metoprolol were held by his hematology oncologist yesterday, and his blood pressure still remains somewhat low particularly with positional changes. He is still orthostatic. I recommended that he continue to hold his valsartan and metoprolol at this time and hold his Lasix at least until this upcoming 09/29/17. At that time he will restart Lasix 40 mg daily only, valsartan 40 mg a day, and [...] necessary given his lung cancer if his blood pressure does not improve. 2. Arrhythmia I49.9 [...] his moderate pulmonary hypertension, sedentary lifestyle, recent cancer so I would not discontinue his anticoagulation unless absolutely necessary. 3. Hyperlipidemia: Continue Pravachol. 4. Return office in 1 month and 6 months. This note was generated using a voice recognition system and there may be incorrect words, spelling or punctuation that were not noted when reviewing the office note prior to saving. Plan Detail Other Medications Discontinued: prochlorperazine maleate Discontinued Reason:10 mg PO Q6H PRN PRN Nausea C34.12, R11.0 Pt no longer taking Follow Up +6m (Germain) +1 week (BP Check.) +1 month (Germain or MANAGED CARE LIAISON) Coding Level of Care Code Off vis,est,level 3 Diagnoses Atherosclerosis of coronary artery of [place] heart without angina pectoris I25.10 Arrhythmia I49.9 Coding Level of Care Code Off vis,est,level 3 Diagnoses Atherosclerosis of coronary artery of [place] heart without angina pectoris I25.10 Arrhythmia I49.9 09/25/17 1605 <Electronically signed by Michoacano Germain MD> Date Michoacano Germain MD Cosigner Signature: Date (if applicable) CC: Fany Hobson DO CBC W/DIFF, AUTOMATED Collected: 09/24/2017 Status: F Source: [place] 2:29 PM [facility] REPOSITORY Order Comment: Reason for Laboratory Test ALSO DRAW AND HOLD FOR TYPE AND CROSS TYPE CODE TESTS RESULT OUT OF RANGE REFERENCE UNITS LAB L100.1000 4.4-11.0 K/mm3 Low WBC 4.3 LAB L100.1200 4.6-6.2 M/mm3 Low RBC 2.89 LAB L100.1300 13.0-16.5 g/dl Low HGB 8.8 LAB L100.1400 40-54 % Low HCT 28.5 LAB L100.1500 80-94 fL High MCV 98.6 LAB L100.1600 27.0-32.0 pg Normal MCH 30.4 LAB L100.1700 32-36 g/gl Low MCHC 30.9 LAB L100.1810 11.6-14.6 % High RDW CV 21.6 LAB L100.1820 35.1-43.9 fl High RDW SD 77.2 LAB L100.1900 150-450 K/mm3 Low PLT 72 LAB L100.2000 6.2-12.0 fl Normal MPV 11.0 LAB L100.2100 47-70 % High NEUT% 87.4 LAB L100.2200 19-41 % Low LY% 8.2 LAB L100.2300 0-10 % Normal MONO% 2.3 LAB L100.2400 0-5 % Normal EO% 1.2 LAB L100.2500 0-1 % Normal BASO% 0.2 LAB L100.2550 0.0-0.9 % Normal IM GRAN % 0.700 Result Comment: IG% - Immature Granulocytes (promyelocytes, myelocytes and metamyelocytes) > 1% indicates that a LEFT SHIFT is Present. LAB L100.2620 2.0-7.7 X10 3/uL Normal Absolute Neut 3.8 LAB L100.2720 0.83-4.51 X10 3/ul Low Absolute Lymph 0.35 LAB L100.4500 Normal SMEAR COMMENT SCANNED Result Comment: RARE BANDS SEEN LAB L100.4800 TOXIC GRAN Normal 1+ LAB L100.4900 DOHLE BODIES Normal 1+ LAB L100.5500 ADEQ PLT EST Normal MOD DEC LAB L100.5650 PLT MORPH Normal LARGE LAB L100.7600 HYPOCHROMASIA Normal 2+ Performed By: #### L100.0100 #### [facility] [address] [place], [address] ONCOLOGY VISIT REPORT Observed: 09/17/2017 Status: F Source: [place] 10:48 AM [facility] REPOSIT[facility] [address] [place] [address] OFFICE VISIT Date of Service: 09/17/17 1028 MR#: [id number] Acct: [id number] Name: JV DURHAM Jr. Rep #: [id number] : 1945 From: Marybeth Millan MD Age/Sex: 71/M Location: OMD Status: Signed - Problem List (1) 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 Status: Acute (2) Cancer of upper lobe of left lung Status: Acute (3) Anemia Status: Acute - Date of Service Date of Service:: 09/17/17 - Chief Complaint Lung cancer on adjuvant chemotherapy - History of Present Illness Patient is [...] lymphadenopathy, Supraclavicular lymphadenopathy, Axillary lymphadenopathy Laboratory Data: Reviewed [...] to 5. Start C4/4 today and further reducing carboplatin dose to AUC of 4 to [...] Visit Medication Instructions Recorded Primary Care Provider: Fany Hobson DO Referring Provider: Marybeth Millan MD 09/17/17 1048 <Electronically signed by Marybeth Millan MD> Date Marybeth Millan MD Cosigner Signature: Date (if applicable) CC: CBC W/DIFF, AUTOMATED Collected: 09/17/2017 Status: F Source: [place] 10:04 AM [facility] REPOSIT[facility] TYPE CODE TESTS RESULT OUT OF RANGE REFERENCE UNITS LAB L100.1000 4.4-11.0 K/mm3 High WBC 14.0 LAB L100.1200 4.6-6.2 M/mm3 Low RBC 3.32 LAB L100.1300 13.0-16.5 g/dl Low HGB 9.9 LAB L100.1400 40-54 % Low HCT 32.4 LAB L100.1500 80-94 fL High MCV 97.6 LAB L100.1600 27.0-32.0 pg Normal MCH 29.8 LAB L100.1700 32-36 g/gl Low MCHC 30.6 LAB L100.1810 11.6-14.6 % High RDW CV 23.2 LAB L100.1820 35.1-43.9 fl High RDW SD 81.1 LAB L100.1900 150-450 K/mm3 Normal PLT 249 LAB L100.2000 6.2-12.0 fl Normal MPV 9.7 LAB L100.2100 47-70 % High NEUT% 89.8 LAB L100.2200 19-41 % Low LY% 5.3 LAB L100.2300 0-10 % Normal MONO% 4.3 LAB L100.2400 0-5 % Normal EO% 0.0 LAB L100.2500 0-1 % Normal BASO% 0.1 LAB L100.2550 0.0-0.9 % Normal IM GRAN % 0.500 Result Comment: IG% - Immature Granulocytes (promyelocytes, myelocytes and metamyelocytes) > 1% indicates that a LEFT SHIFT is Present. LAB L100.2620 2.0-7.7 X10 3/uL Absolute Neut High 12.6 LAB L100.2720 0.83-4.51 X10 3/ul Low Absolute Lymph 0.74 LAB L100.7300 ANISO Normal 1+ LAB L100.7600 HYPOCHROMASIA Normal 1+ LAB L100.7800 MACROCYTE Normal 1+ Performed By: #### L100.0100 #### [facility] [address] [place], [place], [address] COMPREHENSIVE METABOLIC Collected: 09/17/2017 Status: F Source: [place] 10:04 AM [facility] REPOSIT[facility] TYPE CODE TESTS RESULT OUT OF RANGE REFERENCE UNITS LAB L501.0100 74-106 mg/dL High GLU 132 Result Comment: Fasting Glucose result greater than or equal to 126 mg/dL suggests DIABETES MELLITUS per A.D.A. criteria. Please note revised GLUCOSE reference range effective 2017. LAB L501.1000 7-18 mg/dL Normal BUN 18 LAB L501.1100 0.70-1.30 mg/dL Normal CREAT,SERUM 1.15 Result Comment: The validity of the calculated GFR AND GFRAA in patients over 70 years has not been determined. Clinical correlation is essential. LAB L501.1110 >60 mL/min Normal EST GFR 66 Result Comment: Non- GFR Calc LAB L501.1115 >60 mL/min Normal EST GFR - AA 80 Result Comment: GFR Calc LAB L501.1255 ml/min Normal Estimated CRCL 60.83 LAB L501.1300 10-20 RATIO Normal BUN/CRE 15.7 LAB L501.1500 6.4-8. g/dL Normal 2 T PROT 6.6 LAB L501.1800 3.2-5. g/dL Normal 0 ALB 3.3 LAB L501.1950 2.2-4. g/dL Normal 2 GLOB 3.3 LAB L501.2000 0.9-2. RATIO Normal 4 A/G 1.0 LAB L501.2200 8.5-10 mg/dL Low .1 CA 8.4 LAB L501.4100 15-37 U/L Normal AST 17 LAB L501.4305 45-117 U/L Normal ALK P 88 LAB L501.4405 16-61 U/L Normal ALT 19 Result Comment: Please note revised ALT reference range effective 2017. LAB L501.4600 0.20-1.00 mg/dL Normal T BILI 0.90 LAB L501.5300 136-145 mmol/L Normal NA 140 LAB L501.5600 3.5-5.1 mmol/L Normal K 3.9 LAB L501.5900 98-107 mmol/L Normal CL 104 LAB L501.6100 21.0-32.0 mmol/L Normal CO2 26.0 LAB L501.6200 5-15 Normal GAP 10 Performed By: #### L500.4050 #### [facility] [address] [place], [address] ONCOLOGY VISIT REPORT Observed: 09/10/2017 Status: F Source: [place] 1:12 PM [facility]POSIT[facility] [address] [place] [address] OFFICE VISIT Date of Service: 09/10/17 0958 MR#: [id number] Acct: [id number] Name: JV DURHAM JrAxel Rep #: [id number] : 1945 From: Salina MONIQUE Age/Sex: 71/M Location: ONC Status: Signed Subjective - Date of Service Date of Service:: 09/10/17 - Chief Complaint NSCLC on treatment - History of Present Illness [...] PRBC transfusion last week. States I am feeling much better referencing energy levels and improvement of exertional dyspnea. Denies dizziness, headaches, CP, palpitations, abd pain, N/V and swelling/pain of extremities. Appetite good, PO fluid intake adequate. Taking one whey protein smoothie/day. Taking folic acid as advised. Constipation improved, LBM 09/10/17. BMs daily but occasionally difficult to pass. Improved with addition of senna jelly. Back on Xarelto, denies any episodes [...] Hemoptysis, Shortness of Breath, Wheezing Gastrointestinal:: Reports: Constipation. Denies: Abdominal pain, Nausea, [...] No apparent distress HEENT: Atraumatic, Normocephalic Oropharynx:: Negative for: Dry mucosa, Ulcerated lesions Neck:: Supple, Trachea midline. Negative for: JVD, bilateral Cardiac:: Regular rate, Regular rhythm Lungs: Excusion symmetrical. Negative for: Rhonchi, Wheezes, Increased respiratory effort Abdomen:: Bowel sounds x 4, Soft, Non-tender, Non-distended. Negative for: Hepatosplenomegaly - difficult to discern d/t large body habitus Extremities:: Negative for: Cyanosis, [...] exception of continued myelosuppression as discussed below. Chemotherapy held due to continued anemia. Will be due for B12 injection next week. Patient educated on importance of continuing folic acid daily. 2. Chemotherapy induced myelosuppression-continues as evidenced by hemoglobin 7.6 although platelet count has improved. He will receive 1 unit PRBCs. 3. Constipation-improved. To continue Colace, senna-jelly and increased PO fluid intake. Activity has been limited d/t fatigue associated with severe anemia. Comorbidities: multiple chronic medical conditions including morbid obesity, severe oxygen dependent COPD, CAD, chronic atrial fibrillation, DJD, peripheral neuropathy (predates chemotherapy). Return to clinic in 1 week will consider for fourth and final cycle of carboplatin and Alimta. Salina Díaz, MSN, DRYING SUPERVISOR-C, AOCNP Medications: Prescriptions This Visit Medication Instructions Recorded Primary Care Provider: Fany Hobson DO Referring Provider: Marybeth Millan MD - Problem List (1) 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 Status: Acute (2) Antineoplastic chemotherapy induced anemia Status: Acute (3) Constipation Status: Acute Qualifiers: Constipation type: other constipation type Qualified Code(s): K59.09 - Other constipation 09/10/17 1312 <Electronically signed by Salina Díaz SOCIAL PSYCHOLOGIST-C> Date Salina Díaz SOCIAL PSYCHOLOGIST-C Cosigner Signature: Date (if applicable) CC: TYPE AND SCREEN Collected: 09/10/2017 Status: F Source: [place] 11:45 AM [facility] REPOSITORY Order Comment: CMV NEG?* N Give When? Today Irradiated? N Leukodepleted? Y Reason for Type AND Screen/Red Cells: ANEMIA TYPE CODE TESTS RESULT OUT OF RANGE REFERENCE UNITS LAB B10.0800 O Normal BLOOD TYPE GEL POSITIVE LAB B100.4000 Normal Antibody NEGATIVE Screen Performed By: #### B101.7450 #### [facility] [address] [place], [address] Collected: 09/10/2017 Status: F Source: [place] 11:45 AM [facility] REPOSITORY TYPE CODE TESTS RESULT OUT OF REFERENCE UNITS RANGE LAB U100.0000 [id number] TRANSFUSED PRODUCT: T AND S with Crossmatch, Red Cells COUNT: 1 Performed By: #### U100.0000 #### [facility] - refer to report for specific site CBC W/DIFF, AUTOMATED Collected: 09/10/2017 Status: C Source: [place] 10:02 AM [facility] REPOSIT[facility] TYPE CODE TESTS RESULT OUT OF RANGE REFERENCE UNITS LAB L100.1000 4.4-11.0 K/mm3 High WBC 15.2 LAB L100.1200 4.6-6.2 M/mm3 Low RBC 2.52 LAB L100.1300 13.0-16.5 g/dl Low HGB 7.6 LAB L100.1400 40-54 % Low HCT 24.7 LAB L100.1500 80-94 fL High MCV 98.0 LAB L100.1600 27.0-32.0 pg Normal MCH 30.2 LAB L100.1700 32-36 g/gl Low MCHC 30.8 LAB L100.1810 11.6-14.6 % High RDW CV 23.9 LAB L100.1820 35.1-43.9 fl High RDW SD 81.5 LAB L100.1900 150-450 K/mm3 Normal PLT 271 LAB L100.2000 6.2-12.0 fl Normal MPV 9.6 LAB L100.3100 MANUAL DIFF Normal CELLS COUNTED 100 LAB L100.3200 47-70 % High 86 SEGS LAB L100.3400 0-1 % 1 Normal META LAB L100.3500 0-0 High 2 MYELO LAB L100.3600 0-0 High 2 PROMYELO LAB L100.3800 19-41 % Low 3 LYMPH LAB L100.3900 0-10 % 5 Normal MONOCYTE LAB L100.4000 0-5 % 1 Normal EOS LAB L100.5500 ADEQ Normal PLT EST ADEQUATE LAB L100.7000 NORM C AND C NORMAL N Normal RED CELL MORPH CHROM LAB L100.7300 1+ Normal ANISO LAB L100.2620 2.0-7.7 X10 3/uL High Absolute Neut 13.1 LAB L100.2720 0.83-4.51 X10 3/ul Low Absolute Lymph 0.46 LAB L100.9900 Normal PATH REV Reviewed Result Comment: Neutrophilic leukocytosis with left shift. Macrocytic anemia. Clinical correlation necessary. Pathologist comment added Silvio Garcias M.D. 09/12/17 AMENDED REPORT 09/12/17 1358 PATH REV previously reported as: October kristopher Performed By: #### L100.0100 #### [facility] [address] [place], [address] COMPREHENSIVE METABOLIC Collected: 09/10/2017 Status: F Source: [facility] 10:02 AM [facility] REPOSIT[facility] TYPE CODE TESTS RESULT OUT OF RANGE REFERENCE UNITS LAB L501.0100 74-106 mg/dL High GLU 226 Result Comment: Glucose result greater than or equal to 200 mg/dL suggests DIABETES MELLITUS per A.D.A. criteria. Please note revised GLUCOSE reference range effective 2017. LAB L501.1000 7-18 mg/dL Normal BUN 15 LAB L501.1100 0.70-1.30 mg/dL Normal CREAT,SERUM 1.15 Result Comment: The validity of the calculated GFR AND GFRAA in patients over 70 years has not been determined. Clinical correlation is essential. LAB L501.1110 >60 mL/min Normal EST GFR 66 Result Comment: Non- GFR Calc LAB L501.1115 >60 mL/min Normal EST GFR - AA 80 Result Comment: GFR Calc LAB L501.1255 ml/min Normal Estimated CRCL 60.83 LAB L501.1300 10-20 RATIO Normal BUN/CRE 13.0 LAB L501.1500 6.4-8. g/dL Normal 2 T PROT 6.4 LAB L501.1800 3.2-5. g/dL Low 0 ALB 3.0 LAB L501.1950 2.2-4. g/dL Normal 2 GLOB 3.4 LAB L501.2000 0.9-2. RATIO Normal 4 A/G 0.9 LAB L501.2200 8.5-10 mg/dL Low .1 CA 8.1 LAB L501.4100 15-37 U/L Normal AST 17 LAB L501.4305 45-117 U/L Normal ALK P 102 LAB L501.4405 16-61 U/L Normal ALT 20 Result Comment: Please note revised ALT reference range effective 2017. LAB L501.4600 0.20-1.00 mg/dL High T BILI 1.10 LAB L501.5300 136-145 mmol/L Normal NA 139 LAB L501.5600 3.5-5.1 mmol/L Normal K 4.1 LAB L501.5900 98-107 mmol/L Normal CL 107 LAB L501.6100 21.0-32.0 mmol/L Normal CO2 21.0 LAB L501.6200 5-15 Normal GAP 11 Performed By: #### L500.4050 #### [facility] [address] [place] [address]. [place], [address] CBC W/DIFF, AUTOMATED Collected: 09/04/2017 Status: C Source: [place] 1:30 PM [facility] REPOSITORY Order Comment: Reason for Laboratory Test PRE-CHEMO TYPE CODE TESTS RESULT OUT OF REFERENCE UNITS RANGE LAB L100.1000 4.4-11.0 K/mm3 WBC High 23.9 LAB L100.1200 4.6-6.2 M/mm3 Low RBC 2.83 LAB L100.1300 13.0-16.5 g/dl Low HGB 8.5 LAB L100.1400 40-54 % Low HCT 28.0 LAB L100.1500 80-94 fL MCV High 98.9 LAB L100.1600 27.0-32.0 pg MCH Normal 30.0 LAB L100.1700 32-36 g/gl Low MCHC 30.4 LAB L100.1810 11.6-14.6 % RDW CV High 23.0 LAB L100.1820 35.1-43.9 fl RDW SD High 68.3 LAB L100.1900 150-450 K/mm3 Low PLT 120 LAB L100.2000 6.2-12.0 fl MPV Normal 11.4 LAB L100.3100 MANUAL DIFF CELLS COUNTED Normal 100 LAB L100.3200 47-70 % SEGS High 74 LAB L100.3300 0-5 % BAND Normal 2 LAB L100.3400 0-1 % META High 6 LAB L100.3500 0-0 MYELO High 2 LAB L100.3600 0-0 PROMYELO High 3 LAB L100.3800 19-41 % Low LYMPH 6 LAB L100.3900 0-10 % MONOCYTE Normal 6 LAB L100.4000 0-5 % EOS Normal 1 LAB L100.4400 0-5 % NRBC,MANUAL CT Normal 1 LAB L100.5500 ADEQ PLT EST Normal SLT DEC LAB L100.7300 ANISO Normal 1+ LAB L100.7500 POLYCHROMASIA Normal 1+ LAB L100.7600 HYPOCHROMASIA Normal 2+ LAB L100.2620 2.0-7.7 X10 3/uL Absolute Neut High 18.1 LAB L100.2720 0.83-4.51 X10 3/ul Absolute Lymph Normal 1.43 LAB L100.9900 PATH REV Normal Reviewed Result Comment: Neutrophilic leukocytosis with left shift. Macrocytic anemia. NBCs are noted. Mild Thrombocytopenia. Clinical correlation necessary. Silvio Garcias M.D. 09/08/17 AMENDED REPORT 09/08/17 1340 PATH REV previously reported as: October kristopher Performed By: #### L100.0100 #### [facility] [address] [place], [address] ONCOLOGY VISIT REPORT Observed: 09/01/2017 Status: F Source: [place] 2:55 PM [facility] REPOSIT[facility] [address] [place] [address] OFFICE VISIT Date of Service: 09/01/17 1306 MR#: [id number] Acct: [id number] Name: JV DURHAM Jr. Rep #: [id number] : 1945 From: Salina MONIQUE Age/Sex: 71/M Location: OMD Status: Signed Subjective - Date of Service Date of Service:: 09/01/17 - Chief Complaint Acute visit- Fatigue - History of Present Illness Patient is [...] CP, palpitations and dizziness. Describes feeling very weak and c/o increased exertional dyspnea. Received cycle 3 carboplatin/Alimta on 08/20/17. Required 1 unit PRBCs on 08/28/17 for Hgb of 7.3. Reports he developed epistaxis yesterday which prompted presentation to [facility] ED for management. Right nare was packed. Asked to hold Xarelto x 2 days and began Keflex. Appointment with ENT, Dr. Prescott on 09/03 for removal. Spouse states they discussed anticoagulation with Dr. Germain and plans to be held for approx 5 days. Otherwise, denies any episodes of overt bleeding although admits he is bruising easily. - Past Medical/Social History Past Medical History Past Medical History: Anemia,Blood transfusion,COPD,Hyperlipidemia, Hypertension,Sleep apnea Cancer: Lung cancer Social History Social History: No changes Smoking Status Former smoker Review of Systems Constitutional:: Reports: Weakness, Fatigue. Denies: Fever, Sweats, Weight loss, Appetite change, Chills Cardiovascular:: Denies: Chest pain, Palpitations, Dyspnea on exertion, Orthopnea, PND, Shortness of breath Respiratory: Reports: Shortness of Breath. Denies: Cough, Hemoptysis, Wheezing Gastrointestinal:: Reports: Constipation - LBM 08/30/17. Denies: Abdominal pain, Nausea, Vomiting, Diarrhea, Hematochezia Genitourinary: Denies: Dysuria, Hematuria, 15, Flank pain Musculoskeletal:: Denies: Back pain, Myalgia, Arthralgia Skin: Denies: Rash, Skin Changes, Wounds Neurological:: Reports: Numbness, Tingling, Muscle weakness. Denies: Headache, Dizziness, Visual changes, Tinnitus, Hearing loss Psychiatric: Denies: Anxiety, Depression, Homicidal Ideations, Suicidal Ideations Vital Signs Height 5 ft 10 in Weight: 295 lb [...] - difficult to discern d/t large body habitus Extremities:: Negative for: Cyanosis, [...] myelosuppression as discussed below. 2. Chemotherapy induced myelosuppression- as evidenced by Hgb 5.9 and platelets 40,000. Will receive 2 units leukodeplete PRBCs. To hold Xarelto and ASA, agreed upon between bar host/hostess, Dr. Germain. Repeat CBC in 3 days. 3. Constipation- To continue colace daily, recommended he add [...] DJD, peripheral neuropathy (predates chemotherapy). 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 Today Irradiated? N Leukodepleted? Y Reason for Type AND Screen/Red Cells: ANEMIA TYPE CODE TESTS RESULT OUT OF RANGE REFERENCE UNITS LAB B10.0800 O Normal BLOOD TYPE GEL POSITIVE LAB B100.4000 Normal Antibody NEGATIVE Screen Performed By: #### B101.7450 #### [facility] [address] [place], [place], [address] TYPE AND SCREEN Collected: 09/01/2017 Status: F Source: [place] 1:15 PM [facility] REPOSITORY Order Comment: CMV NEG?* N Give When? Today Irradiated? N Leukodepleted? Y Reason for Type AND Screen/Red Cells: ANEMIA TYPE CODE TESTS RESULT OUT OF RANGE REFERENCE UNITS LAB B10.0800 O Normal BLOOD TYPE GEL POSITIVE LAB B100.4000 Normal Antibody NEGATIVE Screen Performed By: #### B101.7450 #### [facility] [address] [place], [place], [address] RC Collected: 09/01/2017 Status: F Source: [place] 1:15 PM [facility] REPOSITORY TYPE CODE TESTS RESULT OUT OF REFERENCE UNITS RANGE LAB U100.0000 [id number] TRANSFUSED PRODUCT: T AND S with Crossmatch, Red Cells COUNT: 2 Performed By: #### U100.0000 #### [facility] - refer to report for specific site CBC W/DIFF, AUTOMATED Collected: 09/01/2017 Status: C Source: [place] 1:08 PM [facility] REPOSITORY Order Comment: Reason for Laboratory Test . CRITICAL VALUE VERIFIED. CALLED TO [place] JAMESON 09/01/17 Vicky Wan. RESULTS READ BACK BY SAME . TYPE CODE TESTS RESULT OUT OF REFERENCE UNITS RANGE LAB L100.1000 4.4-11.0 K/mm3 WBC Normal 6.5 LAB L100.1200 4.6-6.2 M/mm3 Low RBC 2.06 LAB L100.1300 13.0-16.5 g/dl Low HGB alert 5.9 LAB L100.1400 40-54 % Low HCT 19.2 LAB L100.1500 80-94 fL MCV Normal 93.2 LAB L100.1600 27.0-32.0 pg MCH Normal 28.6 LAB L100.1700 32-36 g/gl Low MCHC 30.7 LAB L100.1810 11.6-14.6 % RDW CV High 21.2 LAB L100.1820 35.1-43.9 fl RDW SD High 70.5 LAB L100.1900 150-450 K/mm3 Low PLT alert 40 LAB L100.2000 6.2-12.0 fl MPV Normal 10.3 LAB L100.3100 MANUAL DIFF CELLS COUNTED Normal 100 LAB L100.3200 47-70 % SEGS Normal 53 LAB L100.3300 0-5 % BAND Normal 2 LAB L100.3400 0-1 % META High 3 LAB L100.3500 0-0 MYELO High 3 LAB L100.3600 0-0 PROMYELO High 4 LAB L100.3800 19-41 % Low LYMPH 13 LAB L100.3900 0-10 % MONOCYTE High 21 LAB L100.4000 0-5 % EOS Normal 1 LAB L100.5500 ADEQ PLT EST Normal MKD DEC LAB L100.7500 POLYCHROMASIA Normal 1+ LAB L100.7600 HYPOCHROMASIA Normal 3+ LAB L100.7800 MACROCYTE Normal 1+ LAB L100.2620 2.0-7.7 X10 3/uL Absolute Neut Normal 3.6 LAB L100.2720 0.83-4.51 X10 3/ul Absolute Lymph Normal 0.84 LAB L100.9900 PATH REV Normal Reviewed Result Comment: Neutrophilic left shift. Severe normocytic anemia. NRBCs are noted. Thrombocytopenia. Clinical correlation necessary. Silvio Garcias M.D. 09/02/17 AMENDED REPORT 09/02/17 1358 PATH REV previously reported as: Edita summers Performed By: #### L100.0100 #### [facility] [address] [place], [address] EMERGENCY DEPARTMENT Observed: 08/31/2017 Status: F Source: [place] SUMMARY 4:01 PM [facility] RE[facility]IT[facility] Medical Records Department [address] [place] [address] Emergency Department Summary 08/31/17 1336 MR#: [id number] Acct: [id number] Name: JV DURHAM Jr. Rep #: [id number] : 1945 71 From: Teresa Sneed MD PCP: Fany Hobson DO Status: DEP ER - ER Visit Summary Date of Service: 08/31/17 Chief Complaint: [] Right sided nosebleed multiple medical problems Xarelto aspirin therapy History of Present Illness: The patient is a 71 M [] history of heart disease, A. fib on the lung cancer, home O2, recent chemotherapy, recent blood transfusion a few days ago reports he has had intermittent bleeding from his right nostril he has had a URI minimally, blowing his nose quite a bit the bleeding persisted today and he came in he has not taken his Xarelto or aspirin yet. He denies any vomiting of blood or blood per rectum or bruisability the skin he is otherwise been in his stable state of health eating and drinking and going about his usual type activities Physical Examination: [] Total signs are within normal range there is excoriation of the right nasal septum there is clot in place that appears fresh there is no active bleeding the left nostril is clear the throat is clear no bleeding the neck is supple he is on home O2 his lungs are diminished the heart tones are unremarkable rate of about 80 the abdomen soft nontender obese he is moving all 4 extremities in no distress awake and alert right nasal pack place with no difficulty Test Results: [] Emergency Department Course and Treatment: [] That complaint we did pack his nose we look at his recent blood [...] with Dr. Antonio of ENT and all his other physicians or return for further bleeding I have asked him to hold his Xarelto and aspirin for 24-48 hrs. until he follows up is done that in the past with no difficulty Treatment Plan: [] Disposition: [] Stable home Impression: [] rt Sided nosebleed, nasal pack multiple medical history as above This note was generated with [employer] dictation software. It may contain incorrect words, spelling, and punctuation that were not noted in review of the chart prior to signing ED Disposition - Plan for ED Patient: Chief Complaint: Nosebleed Referrals: Fany Hobson DO [Primary Care Provider] - What to do if you have Problems For any increased pain, shortness of breath, bleeding, nausea or vomiting, chest pain, or any unexpected problems, contact your Primary Care Provider. Call [facility] ([phone]) or report to the closest Emergency Room. Call 911 if necessary. 08/31/17 1601 <Electronically signed by Teresa Sneed MD> Date Teresa Sneed MD Cosigner Signature (If Indicated): Date CC: Fany Hobson DO DISCHARGE INSTRUCTION Observed: 08/31/2017 Status: F Source: [place] 1:51 PM [facility] REPOSITORY [facility] Medical Records Department [address] [place] [address] Discharge Instruction 08/31/17 1350 MR#: [id number] Acct: [id number] Name: MARVAVJ Merary Rep #: [id number] : 1945 71 From: Teresa Sneed MD PCP: Fany Hobson DO Status: REG ER ED Disposition - Plan for ED Patient: Chief Complaint: Nosebleed Instructions: Nosebleed Prescriptions: Cephalexin [Keflex] 500 mg PO Q6 #40 cap Referrals: Fany Hobson DO [Primary Care Provider] - Derek Prescott MD [STAFF PHYSICIAN] - What to do if you have Problems For any increased pain, shortness of breath, bleeding, nausea or vomiting, chest pain, or any unexpected problems, contact your Primary Care Provider. Call [employer] [facility] ([phone]) or report to the closest Emergency Room. Call 911 if necessary. 08/31/17 1351 <Electronically signed by Teresa Sneed MD> Date Teresa Sneed MD Cosigner Signature (If Indicated): Date CC: Fany Hobson DO TYPE AND SCREEN Collected: 08/27/2017 Status: F Source: [place] 2:01 PM [facility] REPOSITORY Order Comment: PRETRANSFUSION HGB = 7.3 HCT = 24.2 PERFORMED AT [facility] CMV NEG?* N Give When? When Ready Irradiated? N Leukodepleted? Y Reason for Type AND Screen/Red Cells: ANEMIA TYPE CODE TESTS RESULT OUT OF RANGE REFERENCE UNITS LAB B10.0800 O Normal BLOOD TYPE GEL POSITIVE LAB B100.4000 Normal Antibody NEGATIVE Screen Performed By: #### B101.7450 #### [facility] [address] [place], [address] Collected: 08/27/2017 Status: F Source: [place] 2:01 PM [facility] REPOSITORY TYPE CODE TESTS RESULT OUT OF REFERENCE UNITS RANGE LAB U100.0000 [id number] TRANSFUSED PRODUCT: T AND S with Crossmatch, Red Cells COUNT: 1 Performed By: #### U100.0000 #### [facility] - refer to report for specific site CBC W/DIFF, AUTOMATED Collected: 08/27/2017 Status: F Source: [place] 1:59 PM [facility] REPOSITORY Order Comment: Reason for Laboratory Test . TYPE CODE TESTS RESULT OUT OF RANGE REFERENCE UNITS LAB L100.1000 4.4-11.0 K/mm3 Low WBC 4.2 LAB L100.1200 4.6-6.2 M/mm3 Low RBC 2.53 LAB L100.1300 13.0-16.5 g/dl Low HGB 7.3 LAB L100.1400 40-54 % Low HCT 24.2 LAB L100.1500 80-94 fL High MCV 95.7 LAB L100.1600 27.0-32.0 pg Normal MCH 28.9 LAB L100.1700 32-36 g/gl Low MCHC 30.2 LAB L100.1810 11.6-14.6 % High RDW CV 22.6 LAB L100.1820 35.1-43.9 fl High RDW SD 78.2 LAB L100.1900 150-450 K/mm3 Low PLT 104 LAB L100.2000 6.2-12.0 fl Normal MPV 10.9 LAB L100.2100 47-70 % High NEUT% 76.7 LAB L100.2200 19-41 % Low LY% 18.8 LAB L100.2300 0-10 % Normal MONO% 3.1 LAB L100.2400 0-5 % Normal EO% 0.2 LAB L100.2500 0-1 % Normal BASO% 0.5 LAB L100.2550 0.0-0.9 % Normal IM GRAN % 0.700 Result Comment: IG% - Immature Granulocytes (promyelocytes, myelocytes and metamyelocytes) > 1% indicates that a LEFT SHIFT is Present. LAB L100.2620 2.0-7.7 X10 3/uL Absolute Neut Normal 3.2 LAB L100.2720 0.83-4.51 X10 3/ul Low Absolute Lymph 0.79 LAB L100.5500 ADEQ PLT EST Normal SLT DEC LAB L100.5650 PLT MORPH Normal LARGE LAB L100.7300 ANISO Normal 2+ LAB L100.7600 HYPOCHROMASIA Normal 2+ Performed By: #### L100.0100 #### [facility] [address] [facility] [place], [address] ONCOLOGY VISIT REPORT Observed: 08/20/2017 Status: F Source: [place] 10:38 AM [facility] REPOSITORY [facility] [address] [place] [address]. [place] [address] OFFICE VISIT Date of Service: 08/20/17 1021 MR#: [id number] Acct: [id number] Name: JV DURHAM Rep #: [id number] : 1945 From: Marybeth Millan MD Age/Sex: [...] - Past Medical/Social History Past Medical History Cancer: Lung cancer Social History Social History: [...] Negative for: JVD, bilateral Cardiac:: Regular rate, Normal S1, Normal S2, Irregular rate. Negative for: Murmur Lungs: Clear to auscultation, Diminished, Excusion symmetrical. Negative for: Rhonchi, Wheezes Abdomen:: Bowel sounds x 4, Soft, Non-tender, Non-distended. Negative for: Hepatosplenomegaly Extremities:: Edema - 1+ ankles edema. Negative for: Cyanosis Neurological: Neuro grossly intact Skin:: Negative for: Lesions, Rash, Petechiae, Ecchymosis Psychiatric:: Appropriate affect, Euthymic Lymphatics:: Negative for: Cervical lymphadenopathy, Supraclavicular lymphadenopathy, Axillary lymphadenopathy Laboratory Data: Reviewed [...] Visit Medication Instructions Recorded Primary Care Provider: Fany Hobson DO Referring Provider: Marybeth Millan MD 08/20/17 1038 <Electronically signed by Marybeth Millan MD> Date Rivermiguel Monty Lanierignartem Signature: Date (if applicable) CC: CBC W/DIFF, AUTOMATED Collected: 08/20/2017 Status: C Source: [place] 9:56 AM [facility] REPOSITORY TYPE CODE TESTS RESULT OUT OF REFERENCE UNITS RANGE LAB L100.1000 4.4-11.0 K/mm3 WBC High 27.2 LAB L100.1200 4.6-6.2 M/mm3 Low RBC 2.75 LAB L100.1300 13.0-16.5 g/dl Low HGB 8.1 LAB L100.1400 40-54 % Low HCT 27.2 LAB L100.1500 80-94 fL MCV High 98.9 LAB L100.1600 27.0-32.0 pg MCH Normal 29.5 LAB L100.1700 32-36 g/gl Low MCHC 29.8 LAB L100.1810 11.6-14.6 % RDW CV High 24.7 LAB L100.1820 35.1-43.9 fl RDW SD High 85.1 LAB L100.1900 150-450 K/mm3 PLT Normal 285 LAB L100.2000 6.2-12.0 fl MPV Normal 10.7 LAB L100.3100 MANUAL DIFF CELLS COUNTED Normal 100 LAB L100.3200 47-70 % SEGS High 84 LAB L100.3300 0-5 % BAND High 7 LAB L100.3400 0-1 % META Normal 1 LAB L100.3500 0-0 MYELO High 2 LAB L100.3700 0-0 % BLAST High alert 1 LAB L100.3800 19-41 % Low LYMPH 2 LAB L100.3900 0-10 % MONOCYTE Normal 3 LAB L100.5500 ADEQ PLT EST Normal ADEQUATE LAB L100.7500 POLYCHROMASIA Normal 1+ LAB L100.7600 HYPOCHROMASIA Normal 2+ LAB L100.2620 2.0-7.7 X10 3/uL Absolute Neut High 27.8 LAB L100.2720 0.83-4.51 X10 3/ul Low Absolute Lymph 0.54 LAB L100.9900 PATH REV Normal Reviewed Result Comment: Macrocytic anemia. Neutrophilic leukocytosis with slight left shift. Kel Morales D.O. 08/21/17 AMENDED REPORT 08/21/17 0914 PATH REV previously reported as: October kristopher Performed By: #### L100.0100, L500.4050, L100.4425 #### [facility] [address] [place], [address] COMPREHENSIVE METABOLIC Collected: 08/20/2017 Status: F Source: [facility] 9:56 AM [facility] REPOSITORY TYPE CODE TESTS RESULT OUT OF RANGE REFERENCE UNITS LAB L501.0100 74-106 mg/dL High GLU 213 Result Comment: Glucose result greater than or equal to 200 mg/dL suggests DIABETES MELLITUS per A.D.A. criteria. Please note revised GLUCOSE reference range effective 2017. LAB L501.1000 7-18 mg/dL Normal BUN 15 LAB L501.1100 0.70-1.30 mg/dL Normal CREAT,SERUM 1.15 Result Comment: The validity of the calculated GFR AND GFRAA in patients over 70 years has not been determined. Clinical correlation is essential. LAB L501.1110 >60 mL/min Normal EST GFR 67 Result Comment: Non- GFR Calc LAB L501.1115 >60 mL/min Normal EST GFR - AA 80 Result Comment: GFR Calc LAB L501.1255 ml/min Normal Estimated CRCL 60.83 LAB L501.1300 10-20 RATIO Normal BUN/CRE 13.0 LAB L501.1500 6.4-8. g/dL Normal 2 T PROT 6.5 LAB L501.1800 3.2-5. g/dL Normal 0 ALB 3.2 LAB L501.1950 2.2-4. g/dL Normal 2 GLOB 3.3 LAB L501.2000 0.9-2. RATIO Normal 4 A/G 1.0 LAB L501.2200 8.5-10 mg/dL Low .1 CA 8.3 LAB L501.4100 15-37 U/L Normal AST 21 LAB L501.4305 45-117 U/L Normal ALK P 108 LAB L501.4405 16-61 U/L Normal ALT 18 Result Comment: Please note revised ALT reference range effective 2017. LAB L501.4600 0.20-1.00 mg/dL Normal T BILI 0.70 LAB L501.5300 136-145 mmol/L Normal NA 142 LAB L501.5600 3.5-5.1 mmol/L Normal K 3.9 LAB L501.5900 98-107 mmol/L Normal CL 107 LAB L501.6100 21.0-32.0 mmol/L Normal CO2 25.0 LAB L501.6200 5-15 Normal GAP 10 Performed By: #### L100.0100, L500.4050, L100.4425 #### [facility] [address] [place], [address] NRBC PANEL Collected: 08/20/2017 Status: F Source: [place] 9:56 AM [facility] REPOSITORY TYPE CODE TESTS RESULT OUT OF RANGE REFERENCE UNITS LAB L100.4450 0-5 % Normal NRBC, FLAGGED 0.6 LAB L100.4455 0-5 10 3/uL Normal NRBC # 0.17 Performed By: #### L100.0100, L500.4050, L100.4425 #### [facility] [address] [place], [place], [address] CARDIOLOGY VISIT Observed: 08/14/2017 Status: F Source: [place] REPORT 1:35 PM [facility] REPOSITORY [facility] [address] [place] [address] OFFICE VISIT Date of Service: 08/14/17 MR#: [id number] Acct: [id number] Name: JV DURHAM Rep #: [id number] : 1945 Provider: Michoacano Germain MD Age/Sex: 71/M Location: [facility] Status: Signed HPI HPI Chief Complaint: Routine F/u Details: HPI PCP: Dr. Anastasia Hobson This is 71-year-old male who presents for [...] RVSP of 60 mmHg., Moderate pulmonary hypertension. May 2013 patient had right common iliac stent placement and left common iliac stent placement at [facility]. Heart cath from April 2013 showed [...] but no CPAP machine. We attempted DC cardioversion in the past, but unfortunately this was unsuccessful. Patient now returns for routine follow-up. The patient has had several mechanical falls but no syncope. When the patient walks with a cane he adds tendency [...] mcg PO DAILY 05/06/13 [History Confirmed 08/06/17] Docusate Sodium [Colace] 100 mg PO BID 05/06/13 [History Confirmed 08/06/17] Fenofibrate [Tricor] 145 mg PO DAILY 05/06/13 [History Confirmed 08/06/17] Folic Acid 1 mg PO DAILY@0800 05/06/13 [History Confirmed 08/06/17] Potassium Chloride [Klor-Con 10] 20 meq PO BID 05/06/13 [History Confirmed 08/06/17] Tiotropium [place] [Spiriva 18 MCG] 1 puff INHALATION DAILY 05/06/13 [History Confirmed 08/06/17] Valsartan [Diovan] 80 mg PO DAILY 05/06/13 [History Confirmed 08/06/17] Vit A/Vit C/Vit E/Zinc/Copper [Icaps Areds Formula Tablet] 1 ea PO BID 05/06/13 [History Confirmed 08/06/17] Duloxetine HCl 60 mg PO QHS 12/04/16 [History Confirmed 08/06/17] Gabapentin [Neurontin] 600 mg PO QHS 12/04/16 [History Confirmed 08/06/17] Pramipexole Di-HCl [Mirapex] 0.5 mg PO TID 12/04/16 [History Confirmed 08/06/17] Budesonide 0.25 mg IH BID 01/01/17 [History [...] 12.5 mg PO DAILY 07/04/17 [History Confirmed 08/06/17] Niacin 500 mg PO BID 07/04/17 [History Confirmed 08/06/17] ferrous sulfate 325 mg (65 mg iron) tablet 325 mg PO 08/14/17 [History Confirmed 08/14/17] [facility] Medical History Secondary pulmonary arterial hypertension (Chronic) Atherosclerosis of coronary artery of [place] heart without angina pectoris (Chronic) Primary malignant [...] weakness and fatigue; negative for difficulty sleeping, frequent falls, excessive sweating or headache(s) Eyes Eyes: Negative for loss of peripheral vision, transient loss of vision, blurry vision or double vision ENT ENT: Negative for Nosebleed/epistaxis, balance problems, dizziness or headache(s) Cardio Chest Pain: No Edema: None Muscle aches with walking: None Resp Respiratory: Positive for SOB with activity; negative for SOB at rest, SOB orthopnea\SOB lying down or paroxysmal nocturnal dyspnea Additional Details: continuous O2 at 2L GI GI: Negative nausea or heartburn : Negative for hematuria Musc Musc: Negative for muscle aches/ myalgia, muscle weakness, joint pain or balance problems Skin Skin: Negative non-healing lesions, unusual bruising or rash Neuro Neuro: Positive for weakness; negative for blurry vision, lightheadedness, orthostatic symptoms, double vision, frequent falls, dizziness or headache(s) Chivo Hematologic/Lymphatic: Negative for easy bruising Endo Endo: Positive for fatigue; negative for excessive sweating or increased thirst/drinking Psych Psych: Negative [...] Plan 1. Atherosclerosis of coronary artery of [place] heart without angina pectoris I25.10 CABG x 2 HERRERA-LAD, SVG-OM 02/14/2006 VDV-KHM-MYLH anastomosis-LAD w/ Taxus 2.75 x 8 mm and POBA- PDA 12/23/2006 Plan 1. Coronary artery disease: No exertional anginal symptoms at this time. He is currently convalescing from recent lung cancer surgery and undergoing chemotherapy. I recommended that he get through his chemotherapy and recuperate prior to surveillance dobutamine echocardiogram. His blood pressure and heart rate are fairly well-controlled. Continue baby aspirin, Lasix, valsartan, and Lopressor. Orders Orders: 2. Atrial fibrillation I48.91 Plan 2. Atrial fibrillation: Currently rate controlled on metoprolol, and digoxin. Recommend he continue Xarelto at this time to avoid DVT and [...] Other Orders Orders: Follow Up 6 Months (Jose) Coding Level of Care Code Off vis,est,level 3 Diagnoses Atherosclerosis of coronary artery of [place] heart without angina pectoris I25.10 Atrial fibrillation I48.91 Coding Level of Care Code Off vis,est,level 3 Diagnoses Atherosclerosis of coronary artery of [place] heart without angina pectoris I25.10 Atrial fibrillation I48.91 08/14/17 1335 <Electronically signed by Michoacano Germain MD> Date Michoacano Germain MD Cosigner Signature: Date (if applicable) CC: TYPE AND SCREEN Collected: 08/13/2017 Status: F Source: [place] 9:40 AM [facility] REPOSITORY Order Comment: CMV NEG?* N Give When? 08/14/17 Irradiated? N Leukodepleted? Y Reason for Type AND Screen/Red Cells: ANEMIA TYPE CODE TESTS RESULT OUT OF RANGE REFERENCE UNITS LAB B10.0800 O Normal BLOOD TYPE GEL POSITIVE LAB B100.4000 Normal Antibody NEGATIVE Screen Performed By: #### B101.7450 #### [facility] [address] [place], [address] Collected: 08/13/2017 Status: F Source: [place] 9:40 AM [facility] REPOSITORY TYPE CODE TESTS RESULT OUT OF REFERENCE UNITS RANGE LAB U100.0000 [id number] TRANSFUSED PRODUCT: T AND S with Crossmatch, Red Cells COUNT: 1 Performed By: #### U100.0000 #### [facility] - refer to report for specific site LIVER PROFILE Collected: 08/13/2017 Status: F Source: [place] 9:39 AM [facility] REPOSITORY TYPE CODE TESTS RESULT OUT OF RANGE REFERENCE UNITS LAB L501.1500 6.4-8.2 g/dL Normal T PROT 6.4 LAB L501.1800 3.2-5.0 g/dL Normal ALB 3.3 LAB L501.1950 2.2-4.2 g/dL Normal GLOB 3.1 LAB L501.4100 15-37 U/L Normal AST 29 LAB L501.4305 45-117 U/L Normal ALK P 108 LAB L501.4405 16-61 U/L Normal ALT 23 Result Comment: Please note revised ALT reference range effective 2017. LAB L501.4600 0.20-1.00 mg/dL Normal T BILI 0.70 LAB L501.4700 0.00-0.30 mg/dL High D BILI 0.34 Performed By: #### L500.3400, L500.4100 #### [facility] [address] [place], [address] LIPID PROFILE Collected: 08/13/2017 Status: F Source: [place] 9:39 AM [facility] REPOSITORY TYPE CODE TESTS RESULT OUT OF RANGE REFERENCE UNITS LAB L501.4900 200 mg/dL Normal CHOL 75 Result Comment: <200 mg/dL Desirable 200-240 mg/dL Borderline >240 mg/dL High Risk LAB L501.5000 mg/dL Normal TRIG 155 Result Comment: The drugs N-Acetylcysteine and Metamizole may falsely depress this assay. Serum Triglycerides Reference Interval Normal <150 mg/dL Borderline high 150 - 199 mg/dL High 200 - 499 mg/dL Very High > or = 500 mg/dL LAB L501.6400 mg/dL Low HDL 25 Result Comment: The drugs N-Acetylcysteine and Metamizole may falsely depress this assay. Reference Range HDL <40 mg/dL Low HDL Cholesterol HDL >or= 60 mg/dL High HDL Cholesterol LAB L501.6500 0-130 mg/dL Normal LDL 19 LAB L501.6600 5-40 mg/dL Normal VLDL 31 Performed By: #### L500.3400, L500.4100 #### [facility] [address] [facility] [place], [place], [address] CBC W/DIFF, AUTOMATED Collected: 08/13/2017 Status: C Source: [place] 9:39 AM [facility] REPOSITORY Order Comment: Reason for Laboratory Test ANEMIA TYPE CODE TESTS RESULT OUT OF RANGE REFERENCE UNITS LAB L100.1000 4.4-11.0 K/mm3 High WBC 24.3 LAB L100.1200 4.6-6.2 M/mm3 Low RBC 2.60 LAB L100.1300 13.0-16.5 g/dl Low HGB 7.3 LAB L100.1400 40-54 % Low HCT 24.8 LAB L100.1500 80-94 fL High MCV 95.4 LAB L100.1600 27.0-32.0 pg Normal MCH 28.1 LAB L100.1700 32-36 g/gl Low MCHC 29.4 LAB L100.1810 11.6-14.6 % High RDW CV 21.1 LAB L100.1820 35.1-43.9 fl High RDW SD 64.6 LAB L100.1900 150-450 K/mm3 Low PLT 100 LAB L100.2000 6.2-12.0 fl Normal MPV 10.7 LAB L100.3100 MANUAL DIFF Normal CELLS COUNTED 100 LAB L100.3200 47-70 % 57 Normal SEGS LAB L100.3300 0-5 % High 8 BAND LAB L100.3400 0-1 % High 9 META LAB L100.3500 0-0 High 1 MYELO LAB L100.3600 0-0 High 11 PROMYELO LAB L100.3800 19-41 % Low 11 LYMPH LAB L100.3900 0-10 % 3 Normal MONOCYTE LAB L100.5500 ADEQ Normal PLT EST SLT DEC LAB L100.7000 NORM C AND C NORMAL Normal RED CELL MORPH NORM C+C LAB L100.2620 2.0-7.7 X10 3/uL High Absolute Neut 15.8 LAB L100.2720 0.83-4.51 X10 3/ul Normal Absolute Lymph 2.67 LAB L100.9900 Normal PATH REV Reviewed Result Comment: Leukocytosis with neutrophilic left shift. Macrocytic anemia. Thrombocytopenia. Clinical correlation necessary. Silvio Garcias M.D. 08/14/17 AMENDED REPORT 08/14/17 1346 PATH REV previously reported as: May foll Performed By: #### L100.0100 #### [facility] [address] [place], [address] TYPE AND SCREEN Collected: 08/05/2017 Status: F Source: [place] 2:10 PM [facility] REPOSITORY Order Comment: CMV NEG?* N Give When? 08/06/17 Irradiated? N Leukodepleted? Y Reason for Type AND Screen/Red Cells: ANEMIA TYPE CODE TESTS RESULT OUT OF RANGE REFERENCE UNITS LAB B10.0800 O Normal BLOOD TYPE GEL POSITIVE LAB B100.4000 Normal Antibody NEGATIVE Screen Performed By: #### B101.7450 #### [facility] [address] [place], [address] RC Collected: 08/05/2017 Status: F Source: [place] 2:10 PM [facility] REPOSITORY TYPE CODE TESTS RESULT OUT OF REFERENCE UNITS RANGE LAB U100.0000 [id number] TRANSFUSED PRODUCT: T AND S with Crossmatch, Red Cells COUNT: 1 Performed By: #### U100.0000 #### [facility] - refer to report for specific site CBC W/DIFF, AUTOMATED Collected: 08/05/2017 Status: C Source: [place] 2:03 PM [facility] REPOSITORY Order Comment: Reason for Laboratory Test ANEMIA TYPE CODE TESTS RESULT OUT OF RANGE REFERENCE UNITS LAB L100.1000 4.4-11.0 K/mm3 Low WBC 2.6 LAB L100.1200 4.6-6.2 M/mm3 Low RBC 2.63 LAB L100.1300 13.0-16.5 g/dl Low HGB 7.2 LAB L100.1400 40-54 % Low HCT 24.4 LAB L100.1500 80-94 fL Normal MCV 92.8 LAB L100.1600 27.0-32.0 pg Normal MCH 27.4 LAB L100.1700 32-36 g/gl Low MCHC 29.5 LAB L100.1810 11.6-14.6 % High RDW CV 20.8 LAB L100.1820 35.1-43.9 fl High RDW SD 69.2 LAB L100.1900 150-450 K/mm3 Normal PLT 150 LAB L100.2000 6.2-12.0 fl Normal MPV 10.5 LAB L100.2100 47-70 % High NEUT% 72.8 LAB L100.2200 19-41 % Normal LY% 23.3 LAB L100.2300 0-10 % Normal MONO% 1.9 LAB L100.2400 0-5 % Normal EO% 0.0 LAB L100.2500 0-1 % Normal BASO% 0.4 LAB L100.2550 0.0-0.9 % High IM GRAN % 1.600 Result Comment: IG% - Immature Granulocytes (promyelocytes, myelocytes and metamyelocytes) > 1% indicates that a LEFT SHIFT is Present. LAB L100.2620 2.0-7.7 X10 3/uL Low Absolute Neut 1.9 LAB L100.2720 0.83-4.51 X10 3/ul Low Absolute Lymph 0.60 LAB L100.4500 SMEAR Normal COMMENT Result Comment: LYMPHOPENIA NOTED LAB L100.9900 Normal Reviewed PATH REV Result Comment: Leukocytopenia. Normocytic anemia. Clinical correlation suggested. Kel Morales D.O. 08/06/17 AMENDED REPORT 08/06/17 0915 PATH REV previously reported as: October Performed By: #### L100.0100 #### [facility]. [facility] [address] IRON+IRON BINDING Collected: 07/30/2017 Status: F Source: [facility] 10:45 AM [facility] REPOSITORY Order Comment: Reason for Laboratory Test ANEMIA TYPE CODE TESTS RESULT OUT OF REFERENCE UNITS RANGE LAB L503.6075 250-450 ug/dL TIBC High 484 LAB L503.6150 65-175 ug/dL Low IRON 39 LAB L503.6250 15.0-55.0 % Low IRON SATURATION 8.1 Performed By: #### L503.6030, L503.6550 #### [facility] [address] [facility] [place], [address] FERRITIN Collected: 07/30/2017 Status: F Source: [place] 10:45 AM [facility] REPOSITORY Order Comment: Reason for Laboratory Test ANEMIA TYPE CODE TESTS RESULT OUT OF RANGE REFERENCE UNITS LAB L503.6550 26-388 ng/mL Normal FERRITIN 59 Performed By: #### L503.6030, L503.6550 #### [facility] [address] [place], [place], [address] CBC W/DIFF, AUTOMATED Collected: 07/30/2017 Status: C Source: [place] 9:08 AM [facility] REPOSITORY TYPE CODE TESTS RESULT OUT OF REFERENCE UNITS RANGE LAB L100.1000 4.4-11.0 K/mm3 WBC High 21.2 LAB L100.1200 4.6-6.2 M/mm3 Low RBC 2.94 LAB L100.1300 13.0-16.5 g/dl Low HGB 8.2 LAB L100.1400 40-54 % Low HCT 28.3 LAB L100.1500 80-94 fL MCV High 96.3 LAB L100.1600 27.0-32.0 pg MCH Normal 27.9 LAB L100.1700 32-36 g/gl Low MCHC 29.0 LAB L100.1810 11.6-14.6 % RDW CV High 22.2 LAB L100.1820 35.1-43.9 fl RDW SD High 73.6 LAB L100.1900 150-450 K/mm3 PLT Normal 413 LAB L100.2000 6.2-12.0 fl MPV Normal 10.6 LAB L100.3100 MANUAL DIFF CELLS COUNTED Normal 100 LAB L100.3200 47-70 % SEGS High 91 LAB L100.3300 0-5 % BAND Normal 1 LAB L100.3400 0-1 % META High 6 LAB L100.3800 19-41 % Low LYMPH 2 LAB L100.4400 0-5 % NRBC,MANUAL CT Normal 2 LAB L100.7300 ANISO Normal 2+ LAB L100.7500 POLYCHROMASIA Normal 2+ LAB L100.7600 HYPOCHROMASIA Normal 2+ LAB L100.2620 2.0-7.7 X10 3/uL Absolute Neut High 19.5 LAB L100.2720 0.83-4.51 X10 3/ul Low Absolute Lymph 0.40 LAB L100.9900 PATH REV Normal Reviewed Result Comment: Neutrophilic leukocytosis. Macrocytic anemia. Clinical correlation suggested. Kel Morales D.O. 07/31/17 AMENDED REPORT 07/31/1718 PATH REV previously reported as: October kristopher Performed By: #### L100.0100 #### [facility] [place], [address] COMPREHENSIVE METABOLIC Collected: 07/30/2017 Status: F Source: [facility] 9:08 AM [facility] REPOSITORY TYPE CODE TESTS RESULT OUT OF RANGE REFERENCE UNITS LAB L501.0100 74-106 mg/dL High GLU 220 Result Comment: Glucose result greater than or equal to 200 mg/dL suggests DIABETES MELLITUS per A.D.A. criteria. Please note revised GLUCOSE reference range effective 2017. LAB L501.1000 7-18 mg/dL Normal BUN 16 LAB L501.1100 0.70-1.30 mg/dL Normal CREAT,SERUM 1.16 Result Comment: The validity of the calculated GFR AND GFRAA in patients over 70 years has not been determined. Clinical correlation is essential. LAB L501.1110 >60 mL/min Normal EST GFR 66 Result Comment: Non- GFR Calc LAB L501.1115 >60 mL/min Normal EST GFR - AA 80 Result Comment: GFR Calc LAB L501.1255 ml/min Normal Estimated CRCL 60.31 LAB L501.1300 10-20 RATIO Normal BUN/CRE 13.8 LAB L501.1500 6.4-8. g/dL Normal 2 T PROT 6.8 LAB L501.1800 3.2-5. g/dL Low 0 ALB 3.1 LAB L501.1950 2.2-4. g/dL Normal 2 GLOB 3.7 LAB L501.2000 0.9-2. RATIO Low 4 A/G 0.8 LAB L501.2200 8.5-10 mg/dL Low .1 CA 8.2 LAB L501.4100 15-37 U/L Normal AST 21 LAB L501.4305 45-117 U/L Normal ALK P 116 LAB L501.4405 16-61 U/L Normal ALT 47 Result Comment: Please note revised ALT reference range effective 2017. LAB L501.4600 0.20-1.00 mg/dL Normal T BILI 0.60 LAB L501.5300 136-145 mmol/L Normal NA 142 LAB L501.5600 3.5-5.1 mmol/L Normal K 4.2 LAB L501.5900 98-107 mmol/L Normal CL 106 LAB L501.6100 21.0-32.0 mmol/L Normal CO2 23.0 LAB L501.6200 5-15 Normal GAP 13 Performed By: #### L500.4050 #### [facility] [address] [place], [address] TYPE AND SCREEN Collected: 07/22/2017 Status: F Source: [place] 11:50 AM [facility] REPOSITORY Order Comment: CMV NEG?* N Give When? 07/23/17 Irradiated? N Leukodepleted? Y Reason for Type AND Screen/Red Cells: ANEMIA TYPE CODE TESTS RESULT OUT OF RANGE REFERENCE UNITS LAB B10.0800 O Normal BLOOD TYPE GEL POSITIVE LAB B100.4000 Normal Antibody NEGATIVE Screen Performed By: #### B101.7450 #### [facility] [address] [facility] [place], [address] RC Collected: 07/22/2017 Status: F Source: [place] 11:50 AM [facility] REPOSITORY TYPE CODE TESTS RESULT OUT OF REFERENCE UNITS RANGE LAB U100.0000 [id number] TRANSFUSED PRODUCT: T AND S with Crossmatch, Red Cells COUNT: 1 Performed By: #### U100.0000 #### Non-[facility] - refer to report for specific site CBC W/DIFF, AUTOMATED Collected: 07/22/2017 Status: C Source: [place] 11:41 AM [facility] REPOSITORY TYPE CODE TESTS RESULT OUT OF RANGE REFERENCE UNITS LAB L100.1000 4.4-11.0 K/mm3 Normal WBC 6.7 LAB L100.1200 4.6-6.2 M/mm3 Low RBC 2.45 LAB L100.1300 13.0-16.5 g/dl Low HGB 6.9 LAB L100.1400 40-54 % Low HCT 23.1 LAB L100.1500 80-94 fL High MCV 94.3 LAB L100.1600 27.0-32.0 pg Normal MCH 28.2 LAB L100.1700 32-36 g/gl Low MCHC 29.9 LAB L100.1810 11.6-14.6 % High RDW CV 17.3 LAB L100.1820 35.1-43.9 fl High RDW SD 56.1 LAB L100.1900 150-450 K/mm3 Low PLT 99 LAB L100.2000 6.2-12.0 fl Normal MPV 11.5 LAB L100.2620 2.0-7.7 X10 3/uL Normal Absolute Neut 4.3 Result Comment: AMENDED REPORT 07/23/17 0114 Absolute Neut previously reported as: 3.7 X10^3/uL LAB L100.2720 0.83-4.51 X10 3/ul Normal Absolute Lymph 1.20 Result Comment: AMENDED REPORT 07/23/17 0115 Absolute Lymph previously reported as: 1.59 X10^3/ul LAB L100.3100 MANUAL DIFF Normal CELLS COUNTED 100 LAB L100.3200 47-70 % 64 Normal SEGS LAB L100.3600 0-0 2 High PROMYELO LAB L100.3800 19-41 % Low 18 LYMPH LAB L100.3900 0-10 % 14 High MONOCYTE LAB L100.4000 0-5 % 2 Normal EOS LAB L100.5500 ADEQ Normal PLT EST MOD DEC LAB L100.7000 NORM C AND NORMAL C Normal RED CELL MORPH NORM C+C LAB L100.9900 Normal PATH REV Reviewed Result Comment: Neutrophilic left shift. Macrocytic anemia. Thrombocytopenia. Clinical correlation necessary. Silvio Garcias M.D. 07/23/17 AMENDED REPORT 07/23/17 1202 PATH REV previously reported as: October Performed By: #### L100.0100, L100.4425 #### [facility] [address] [place], [address] NRBC PANEL Collected: 07/22/2017 Status: F Source: [place] 11:41 AM [facility] REPOSITORY TYPE CODE TESTS RESULT OUT OF RANGE REFERENCE UNITS LAB L100.4450 0-5 % Normal NRBC, FLAGGED 4.8 LAB L100.4455 0-5 10 3/uL Normal NRBC # 0.32 Performed By: #### L100.0100, L100.4425 #### [facility] [address] [place], [address] CBC W/DIFF, AUTOMATED Collected: 07/09/2017 Status: F Source: [place] 8:27 AM [facility] REPOSITORY Order Comment: Reason for Laboratory Test PRE-CHEMO TYPE CODE TESTS RESULT OUT OF RANGE REFERENCE UNITS LAB L100.1000 4.4-11.0 K/mm3 High WBC 13.5 LAB L100.1200 4.6-6.2 M/mm3 Low RBC 3.02 LAB L100.1300 13.0-16.5 g/dl Low HGB 8.4 LAB L100.1400 40-54 % Low HCT 28.6 LAB L100.1500 80-94 fL High MCV 94.7 LAB L100.1600 27.0-32.0 pg Normal MCH 27.8 LAB L100.1700 32-36 g/gl Low MCHC 29.4 LAB L100.1810 11.6-14.6 % High RDW CV 17.3 LAB L100.1820 35.1-43.9 fl High RDW SD 59.6 LAB L100.1900 150-450 K/mm3 Normal PLT 284 LAB L100.2000 6.2-12.0 fl Normal MPV 10.0 LAB L100.2100 47-70 % High NEUT% 86.5 LAB L100.2200 19-41 % Low LY% 5.0 LAB L100.2300 0-10 % Normal MONO% 5.8 LAB L100.2400 0-5 % Normal EO% 2.4 LAB L100.2500 0-1 % Normal BASO% 0.1 LAB L100.2550 0.0-0.9 % Normal IM GRAN % 0.200 Result Comment: IG% - Immature Granulocytes (promyelocytes, myelocytes and metamyelocytes) > 1% indicates that a LEFT SHIFT is Present. LAB L100.2620 2.0-7.7 X10 3/uL High Absolute Neut 11.7 LAB L100.2720 0.83-4.51 X10 3/ul Low Absolute Lymph 0.68 Performed By: #### L100.0100, L500.4050 #### [facility] [address] [place], [place], [address] COMPREHENSIVE METABOLIC Collected: 07/09/2017 Status: F Source: [place] 8:27 AM [facility] REPOSITORY Order Comment: Reason for Laboratory Test PRE-CHEMO TYPE CODE TESTS RESULT OUT OF RANGE REFERENCE UNITS LAB L501.0100 70-110 mg/dL High GLU 167 Result Comment: Fasting Glucose result greater than or equal to 126 mg/dL suggests DIABETES MELLITUS per A.D.A. criteria. LAB L501.1000 7-18 mg/dL Normal BUN 15 LAB L501.1100 0.70-1.30 mg/dL Normal CREAT,SERUM 1.05 Result Comment: The validity of the calculated GFR AND GFRAA in patients over 70 years has not been determined. Clinical correlation is essential. LAB L501.1110 >60 mL/min Normal EST GFR 74 Result Comment: Non- GFR Calc LAB L501.1115 >60 mL/min Normal EST GFR - AA 89 Result Comment: GFR Calc LAB L501.1255 ml/min Normal Estimated CRCL 66.63 LAB L501.1300 10-20 RATIO Normal BUN/CRE 14.3 LAB L501.1500 6.4-8. g/dL Normal 2 T PROT 6.7 LAB L501.1800 3.4-5. g/dL Low 0 ALB 3.2 Result Comment: Please note revised Albumin AND Globulin reference range effective 2017. LAB L501.1950 2.2-4.2 g/dL Normal GLOB 3.5 LAB L501.2000 0.9-2.4 RATIO Normal A/G 0.9 LAB L501.2200 8.5-10.1 mg/dL Low CA 8.3 LAB L501.4100 15-37 U/L Normal AST 17 LAB L501.4305 45-117 U/L Normal ALK P 73 LAB L501.4405 12-78 U/L Normal ALT 18 LAB L501.4600 0.20-1.00 mg/dL Normal T BILI 0.60 LAB L501.5300 136-145 mmol/L Normal NA 141 LAB L501.5600 3.5-5.1 mmol/L Normal K 4.1 LAB L501.5900 98-107 mmol/L Normal CL 105 LAB L501.6100 21.0-32.0 mmol/L Normal CO2 28.0 LAB L501.6200 5-15 Normal GAP 8 Performed By: #### L100.0100, L500.4050 #### [facility] [address] [place], [address] OPERATIVE REPORT Observed: 07/08/2017 Status: F Source: [place] 1:05 PM [facility] REPOSITORY [facility] Medical Records Department [address] [place] [address] Operative Report 07/08/17 1259 MR#: [id number] Acct: [id number] Name: JV DURHAM Rep #: [id number] : 1945 71 From: Michoacano Alcala MD PCP: Fany Hobson DO Status: REG [facility] Y Location: [place] [address] Problem List (1) Cancer of upper lobe of left lung Status: Acute Report of Operation Date of Procedure: 07/08/17 Pre-Operative Diagnosis: c34.12 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 The neck and chest were sterilely prepped and draped in the usual fashion. Seldinger's technique was used to gain access to the internal jugular vein guidewire was placed over the needle the needle was removed fluoroscopy was used to confirm placement of the guidewire into the internal jugular vein. Local was injected into the chest. Incision was made a pocket was created with use electrocautery for the port. A skin uri was made in the neck dilator and sheath were placed over the guidewire the guidewire was removed the dilator was removed single lumen catheter was placed through the sheath and the sheath was removed. Using fluoroscopy we use this to confirm proper length of the catheter. A tunneled from the pocket over the collarbone into the neck and brought the catheter down. I cut the catheter to length placed the locking hub on the catheter the port onto the catheter and secured [...] sterile dressings were applied and the patient tolerated the procedure well. - Admit VTE Documentation VTE Present on Admission: No VTE Mechan Device Prophylaxis: SCD's VTE Pharm Prophylaxis ordered?: No Reason prophylaxis not ordered:: Treatment Not Indicated 07/08/17 1305 <Electronically signed by Michoacano Alcala MD> Date Michoacano Alcala MD CC: Michoacano Alcala MD; Fany Hobson DO; Marybeth Millan MD Signed CHEST 1 VIEW Observed: 07/08/2017 Status: F Source: [place] (PORTABLE) 12:58 PM [facility] REPOSITORY [facility] Imaging Services [address] [place] [address] Chest 1 View (Portable) MR#: [id number] Acct: [id number] Name: JV DURHAM Rep #: [id number] : 1945 M 71 From: Navdeep Pacheco MD PCP: Fany Hobson DO Status: [facility] Study: Chest 1 View (Portable) Date of Exam: 07/08/17 Exam# [id number] Ordering Dr: Michoacano Alcala MD STUDY: X-RAY [...] expanded. There is no demonstrated pleural abnormality. Sternal cerclage wires and vascular [...] 1 View (Portable) IMPRESSION: The tip of the right-sided portacatheter is in the proximal portion of the superior vena cava. Electronically Signed: Navdeep Pacheco MD at 14:02 EST Tel [phone], Service support , CC: Michoacano Alcala MD; Fany Hobson DO Member Of [employer] Legislative Assembly: Signed SURGERY VISIT REPORT Observed: 07/07/2017 Status: F Source: [place] 2:03 PM [facility] Surgical [facility] [address] [place] [address] OFFICE VISIT Date of Service: 06/30/17 MR#: [id number] Acct: [id number] Name: JV DURHAM Rep #: [id number] : 1945 Provider: Michoacano Alcala MD Age/Sex: 71/M Location: [facility] Status: Signed Intake Vital Signs06/30/17 Height 5 ft 10 in 06/30/17 Weight: 300 lb Intake Visit Reasons: NEEDS PORT PLACEMENT Grip Boss Required: No Is patient in pain?: No Allergies No Known Allergies Allergy (Verified 07/04/17 13:45) Medications Aspirin [Aspirin, Baby] 81 mg PO DAILY@0800 05/06/13 [History Confirmed 07/04/17] Cyanocobalamin (Vitamin B-12) [Vitamin B-12] 1,000 mcg PO DAILY 05/06/13 [History Confirmed 07/04/17] Docusate Sodium [Colace] 100 mg PO BID 05/06/13 [History Confirmed 07/04/17] Fenofibrate [Tricor] 145 mg PO DAILY 05/06/13 [History Confirmed 07/04/17] Folic Acid 1 mg PO DAILY@0800 05/06/13 [History Confirmed 07/04/17] Potassium Chloride [Klor-Con 10] 20 meq PO BID 05/06/13 [History Confirmed 07/04/17] Tiotropium [place] [Spiriva 18 MCG] 1 puff INHALATION DAILY 05/06/13 [History Confirmed 07/04/17] Valsartan [Diovan] 80 mg PO DAILY 05/06/13 [History Confirmed 07/04/17] Vit A/Vit C/Vit E/Zinc/Copper [Icaps Areds Formula Tablet] 1 ea PO BID 05/06/13 [History Confirmed 07/04/17] Duloxetine HCl 60 mg PO QHS 12/04/16 [History Confirmed 07/04/17] Gabapentin [Neurontin] 600 mg PO QHS 12/04/16 [History Confirmed 07/04/17] Pramipexole Di-HCl [Mirapex] 0.5 mg PO TID 12/04/16 [History Confirmed 07/04/17] Budesonide 0.25 mg IH BID 01/01/17 [History Confirmed 07/04/17] Formoterol Fumarate [Perforomist] 20 mcg INHALATION BID [...] PO BID tab 06/27/17 [History Confirmed 07/04/17] Atorvastatin Calcium [Lipitor] 80 mg PO QHS 07/04/17 [History Confirmed 07/04/17] Hydrochlorothiazide [Hctz] 12.5 mg PO DAILY 07/04/17 [History Confirmed 07/04/17] Isosorbide Mononitrate [Imdur] 60 mg PO DAILY 07/04/17 [History Confirmed 07/04/17] Niacin 500 mg PO BID 07/04/17 [History Confirmed 07/04/17] [facility] Medical History Lung nodule (Acute) COPD (chronic obstructive pulmonary disease) (Acute) Dyspnea (Acute) Diabetes (Acute) Neuropathy (Acute) Arthritis (Acute) Obesity (Acute) Alcohol dependence (Acute) GERD (gastroesophageal reflux disease) (Acute) DJD (degenerative joint disease) (Acute) Vascular disease (Acute) Renal disease (Acute) Pulmonary hypertension (Acute) Macular degeneration (Acute) Arrhythmia (Acute) Migraine (Acute) Memory loss (Acute) Coronary artery disease (Acute) Hypotestosteronism (Acute) Essential tremor (Acute) Parkinsons (Acute) Dementia (Acute) HEBER (obstructive sleep apnea) (Acute) Benign essential hypertension (Acute) Hammertoes of both feet (Acute) Surgical History S/P CABG x 2 (Acute) Family History Sister Alcoholism Mother Arthritis Father Arthritis Brother Cancer Social History Smoking Status: Former smoker second hand exposure: No alcohol intake: never substance use type: does not use caffeine: No what type of physical activity do you participate in: none frequency: does not exercise seatbelt use: always HPI HPI HPI: JV DURHAM, is a 71 M who presents to the office today for evaluation for port placement. 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 He will be undergoing limited chemotherapy and is in need for a port. ROS General General: No weight change, appetite, fatigue, colon cancer, breast cancer or weakness HEENT HEENT: No difficulty swallowing, eye injury, eye surgery, swollen glands or hoarseness Endo Endocrine: Yes diabetes mellitus; no thyroid disease, thyroid cancer, Hair loss, heat intolerance or cold intolerance Skin Skin: No rash or changing moles Musc Musculoskeletal: Yes back problems and arthritis; no rheumatoid arthritis, gout or joint pain Cardio Cardiovascular: Yes heart disease, atrial fibrillation and high blood pressure; no murmur, pacemaker, heart attack, heart stent, palpitations, shortness of breat with exertion or chest pain Psych Psychiatric: No depression, anxiety or hearing voices Resp Respiratory: Yes shortness of breath, Yes sleep apnea, No cough, Yes COPD, No asthma, Yes emphysema, No wheezing Gastro Gastrointestinal: No abdominal pain, No nausea or vomiting, No diarrhea, No constipation, No blood in stool, No acid reflux, No hemorrhoids, No ulcers, No gallbladder problem, No black,tarry stools [place] Hematologic: Yes blood thinners, No blood disorders, No bleeding, No anemia, No blood clots Neuro Neurologic: No system reviewed and no additional complaints, except as docu, No as per HPI, No abnormal walking, No abnormal hearing, No abnormal movements, No abnormal speech, No behavioral changes, No burning sensations, No confusion, No seizure-like activity, No unsteadiness, No dizziness, No localized weakness, No frequent falls, No headache(s), No lack of coordination, No loss of vision, No memory loss, No numbness, No other visual disturbances, No radiating pain, No restless legs, No sensory deficit, No fainting, No tingling, No tremor(s), No weakness, No other Exam Const General: well developed, no acute distress, well hydrated Orientation: oriented to person, oriented to place, oriented to time [facility] Head: normocephalic, atraumatic Ears: external ears normal Mouth: moist mucous membranes Eyes Sclera: sclerae normal Pupils: normal by confrontation Neck Neck: no lymphadenopathy noted [...] inspection Assessment AND Plan Problems 1. 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 C34.12 Plan I plan to perform a right IJ port a cath placement. The planned surgical procedure was discussed extensively with the patient. The risks, benefits, anticipated outcomes and possible complication were mentioned. My staff has also explained the procedure in understandable terms and the patient was given the option to take printed material concerning the planned procedure. The patient had the opportunity to ask questions concerning the planned procedure. The patient freely consents to the planned procedure. Coding Level of Care Code Off vis,new,level 3 Diagnoses 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 C34.12 07/07/17 1403 <Electronically signed by Michoacano Alcala MD> Date Michoacano Alcala MD Cosigner Signature: Date (if applicable) CC: Fany Hobson DO; Marybeth Millan MD HISTORY AND PHYSICAL Observed: 06/23/2017 Status: F Source: [place] EXAM 2:32 PM [facility] REPOSITORY [facility] Medical Records Department [address] [place] [address] History and Physical 06/23/17 1411 MR#: [id number] Acct: [id number] Name: JV DURHAM Rep #: [id number] : 1945 71 From: Marybeth Millan MD PCP: Fany Hobson DO Status: REG RCR Y Location: [facility] (1) 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 Denies: Fever, Sweats, Weight loss, Appetite change, Chills Cardiovascular:: Reports: Dyspnea on exertion, Shortness of breath. Denies: Chest pain, Palpitations, Orthopnea, PND Respiratory: Reports: Shortness of Breath, Shortness of breath upon exertion, -. Denies: Cough, Hemoptysis, Wheezing Gastrointestinal:: Denies: Abdominal pain, Nausea, Vomiting, Diarrhea, Constipation, Hematochezia Genitourinary: Reports: Incontinence - Has urge incontinence. Denies: Dysuria, Hematuria, Flank pain Musculoskeletal:: Reports: Arthritis - Degenerative arthritis of lower extremities, Back pain - Chronic degenerative back disease. Denies: Myalgia, Arthralgia Skin: Denies: Rash, Skin Changes, Wounds Neurological:: Reports: Numbness - Chronic neuropathy in the feet. Denies: Headache, Dizziness, Visual changes, Tinnitus, Hearing loss Psychiatric: Denies: Anxiety, Depression, Homicidal Ideations, Suicidal Ideations Vital Signs Height 5 ft 10 in Weight: 133.81 kg Weight in Pounds 295.0 lbs - Physical Exam General: Alert, Oriented x3, No apparent distress, - - Morbidly obese ECOG 2 HEENT: Atraumatic, PERRLA, EOMI, Normocephalic Oropharynx:: Dry mucosa Neck:: Supple, Trachea midline. Negative for: JVD, bilateral Cardiac:: Normal S1, Normal S2, Irregular rate. Negative for: Murmur Lungs: Clear to auscultation, Diminished, Excusion symmetrical, - - Well-healed recent surgical wounds. Negative for: Rhonchi, Wheezes Abdomen:: Soft, Non-tender, Non-distended. Negative for: Hepatosplenomegaly Extremities:: Negative for: Cyanosis, Edema Neurological: Neuro grossly intact Skin:: Negative for: Lesions, Rash, Petechiae, Ecchymosis Psychiatric:: Appropriate affect, Euthymic Lymphatics:: Negative for: Cervical lymphadenopathy, Supraclavicular lymphadenopathy, Axillary lymphadenopathy Pathology Data: Pathology report from [facility] reviewed summarized under HPI [...] CAD, chronic atrial fibrillation, DJD, peripheral neuropathy (probably related to prior excess alcohol). No I reviewed the most recent NCCN and due to the adverse prognostic factors outlined above advice systemic adjuvant chemotherapy. Patient cannot tolerate cis- ekwok based combination due to excessive toxicities expected with his significant chronic medical problems and therefore I advice 4 cycles of adjuvant carboplatin and Alimta with maximum support to include steroids, folic acid and B12 supplement, and primary prophylaxis with Neulasta. Patient was seen was his impression and recommendation discussed and he consented to therapy. Formal teaching session with SOCIAL PSYCHOLOGIST will be scheduled in central venous access requested. Primary Care Provider: Fany Hobson DO Referring Provider: Marybeth Millan MD 06/23/17 8502 <Electronically signed by Marybeth Millan MD> Date Marybeth Millan MD Cosigner Signature: Date (if applicable) CC: Fany Hobson DO; Marybeth Millan MD Signed ALLERGIES ALLERGIES DATE TYPE / CODE NAME / CODE REACTION SEVERITY SOURCE 05/06/[address] [facility] Allergy/416 Allergies/S11838 Hospital 080380(SNOM 0388(RXNORM) Repository ED CT) Drug NO KNOWN [facility] Class/25840 ALLERGIES Other [place] 1003(SNOMED Repository CT) [id number] NO KNOWN [facility] 6(SNOMED ALLERGIES [facility] CT) Repository ENCOUNTERS ENCOUNTERS ADMIT/DISCHARGE ACCOUNT NUMBER ADMITTING ENCOUNTER LOCATION SOURCE CLASS 05/19/2018 [id number] Ambulatory Building:[facility] Repository 05/15/2018/05/17/20 [id number] Titi Moore Inpatient [place] [address] Encounter [facility] ding:[id number] Repository : [id number]: 1 05/15/2018 [id number] Titi Moore Ambulatory [facility]: [place] [facility] hospital Repository 05/15/2018 [id number] Titi Moore Ambulatory [facility]: [place] [facility] hospital Repository 05/15/2018 [id number] Titi Moore Ambulatory [facility]: [place] [facility] access hospital Repository 05/14/2018 [id number] Ambulatory [facility] ding:ONC Repository 05/06/2018 [id number] Ambulatory BMSBuilding: [place] BMS.CF.[facility] Repository 03/23/2018 [id number] Ambulatory [facility] ding:LAB Repository 03/19/2018 [id number] Titi Moore Ambulatory [facility]: [place] [facility] access hospital Repository 03/19/2018 [id number] Titi Moore Ambulatory [facility]: [place] [facility] hospital Repository 03/19/2018/03/21/20 [id number] Titi Moore Ambulatory [address] ding:[id number] Repository : [id number]: 1 03/19/2018/03/21/20 [id number] Ambulatory BMSBuilding: [place] 18 BMS.CF.[facility] Repository 03/19/2018 [id number] Titi Moore Ambulatory B[facility]: [place] [facility].Critical access hospital Repository 03/02/2018/03/02/20 [id number] Ambulatory BMSBuilding: [place] 18 BMS.[facility] Repository 01/27/2018 [id number] Ambulatory BMSBuilding: [place] BMS.CF.[facility] Repository 01/13/2018 [id number] Ambulatory [facility] ding:CT Repository 12/23/2017/12/25/19 [id number] Ambulatory BMSBuilding: [place] [address] [facility] Repository 12/23/2017/12/25/19 [id number] [facility] [address] ding:[id number] Repository : [id number]: 1 12/22/2017 [id number] [facility] Ambulatory BMSBuilding: [place] [facility].Critical access hospital Repository 12/19/2017 [id number] Ambulatory [facility] ding:MTRAD Repository 12/04/2017 [id number] Ambulatory [facility] ding:[facility] Repository 12/04/2017 [id number] Ambulatory BMSBuilding: [place] [facility] Repository 12/04/2017 [id number] Ambulatory [facility] ding:[facility] Repository 11/24/2017 [id number] [facility] Hospital ding:[facility] Repository 10/24/2017/10/25/19 [id number] Ambulatory BMSBuilding: Ivis 18 BMS.[facility] Repository 10/23/2017 [id number] Ambulatory BMSBuilding: Iron BMS.[facility] Repository 10/20/2017 [id number] Ambulatory BMSBuilding: Iron BMS.[facility] Repository 10/15/2017 [id number] Ambulatory BMSBuilding: Ivis BMS.CF.[facility] Repository 10/06/2017 [id number] Ambulatory [facility] ding:MTLAB Repository 09/29/2017/10/03/19 [id number] QAVI, JUDITH Inpatient Nicole [address] [facility] Repository 09/29/2017/10/03/19 [id number] QAVI, JUDITH Inpatient NMRON [facility] 18 [facility] MEDICAL Repository CENTERBuildi nRoom: 5426Bed: 09/29/2017/09/30/19 [id number] Emergency [address] ding:ED Repository 09/25/2017/09/26/19 [id number] Ambulatory BMSBuilding: Iron 18 BMS.[facility] Repository 09/17/2017 [id number] Ambulatory BMSBuilding: Iron BMS.CF.[facility] Repository 09/10/2017 [id number] Ambulatory BMSBuilding: Iron BMS.[facility] Repository 09/01/2017/09/02/19 [id number] Ambulatory [address] ding:MS3OUT Repository 09/01/2017 [id number] Ambulatory BMSBuilding: Iron BMS.[facility] Repository 08/31/2017/09/01/19 [id number] Emergency [address] ding:ED Repository 08/20/2017 [id number] Ambulatory BMSBuilding: Iron BMS.[facility] Repository 08/14/2017/08/15/19 [id number] Ambulatory BMSBuilding: Iron 18 BMS.[facility] Repository 08/14/2017 [id number] Ambulatory BMSBuilding: Ivis BMS.[facility] Repository 08/12/2017 [id number] Ambulatory [facility] ding:LAB.FUT Repository URE 07/30/2017 [id number] Ambulatory BMSBuilding: Iron BMS.[facility] Repository 07/09/2017 [id number] Ambulatory BMSBuilding: Iron BMS.[facility] Repository 07/08/2017 [id number] Ambulatory BMSBuilding: Ivis [facility] Repository 07/08/2017/01/23 [id number] Ambulatory Ivis Ivis 18 [facility] ding:SDC Repository 06/30/2017/06/30/19 [id number] Ambulatory BMSBuilding: Ivis 18 BMS.[facility] Repository 06/25/2017 [id number] Ambulatory BMSBuilding: Iron BMS.[facility] Repository 06/23/2017 [id number] Ambulatory BMSBuilding: Iron BMS.[facility] Repository FUNCTIONAL STATUS FUNCTIONAL STATUS No Functional Status Records FoundEQUIPMENT EQUIPMENT No Equipment Records FoundPAYERS PAYERS ENCOUNTER GUARANTOR PAYER SUBSCRIBER SOURCE 05/19/2018 JV DURHAM Primary JV DURHAM OHIP Practices JRDOB: Insurance:MedicarePol JRDOB: Repository [id number] icy Number: [id number] Dimitri [id number] 4 Dimitri [place], [place] Date:5193-00-20Rjqy [place], [place] [address]Whj: (330) Name:[facility] [address]Yox: (HP) 288[address]Vzdksoiy, [place] [phone] (HP) [address]JC: 05/19/2018 Secondary JV Merary DURHAM OHIP Practices Insurance: FOR JRDOB: Repository LIFE, WPS/MCARE [id number] CROSSOVERPolicy 4 Dimitri Number: [place], [place] [id number]: Date:4695-62-58Kztb ~(3 Name:[facility] [address] (HP) [place], [place] [address]ZC: 05/15/2018 JV DURHAM Primary JV DURHAM Ivis Jr.[address]4 DIMITRI Insurance:MEDICARE Jr.: [place] PART A BPolicy [id number] Hospital [address]Wgv: (330) Number: Repository [phone] (HP) [id number] Date:2018-05-15 05/15/2018 Secondary JV K MARVA Ivis Insurance:WPS Jr.: [facility] [id number] Hospital Number: Repository [id number] Date:7174-81-32PN [address], [place] [address]ET: 05/15/2018 Tertiary NOT GIVENUNK Ivis Insurance:SELF PAY [facility] Hospital Number: Effective Repository Date:2018-05-15 05/15/2018 JV Merary MARVA Primary JV K MARVA Iron Jr.2244 DIMITRI Insurance:MEDICARE Jr.: [place] PART A [facility] [id number] Hospital [address]69[address]Thi: (330) Number: Repository [phone] () [id number] Date:2018-05-15 05/15/2018 Secondary JV K MARVA Ivis Insurance:WPS Jr.: [facility] [id number] Hospital Number: Repository [id number] Date:8820-23-79SN [address], [place] [address]UP: 05/15/2018 Tertiary NOT GIVENUNK Ivis Insurance:SELF PAY [facility] Hospital Number: Effective Repository Date:2018-05-15 05/15/2018 JV Merary MARVA Primary JV Merary MARVA Ivis Jr.2244 DIMITRI Insurance:MEDICARE Jr.: [place] A [facility] [id number] Hospital [address]Xyn: (330) Number: Repository [phone] () [id number] Date:2018-05-15 05/15/2018 Secondary JV K MARVA Iron Insurance:WPS Jr.: [facility] [id number] Hospital Number: Repository [id number] Date:3117-26-78FW [address], [place] [address]JK: 05/15/2018 Tertiary NOT GIVENUNK Ivis Insurance:SELF PAY [facility] Hospital Number: Effective Repository Date:2018-05-15 05/15/2018 JV K MARVA Primary JV Merary MARVA Ivis Jr.2244 DIMITRI Insurance:MEDICARE Jr.: [place] [facility] [id number] Hospital [address]Rja: (330) Number: Repository [phone] () [id number] Date:2018-05-15 05/15/2018 Secondary JV K MARVA Ivis Insurance:WPS Jr.: [place] [id number] Hospital Number: Repository [id number] Date:6969-16-10Y[address], [place] [address]YJ: 05/15/2018 Tertiary NOT GIVENUNK Ivis Insurance:SELF PAY [facility] Number: Effective Repository Date:2018-05-15 05/14/2018 JV K MARVA Primary JV K MARVA Ivis Jr.2244 DIMITRI Insurance:MEDICARE Jr.: [place] [facility] [id number] [place] [address]Tel: (330) Number: Repository [phone] () [id number] Date:2017-06-17 05/14/2018 Secondary JV Merary RAPPMARVA Iron Insurance:WPS Jr.: [address]04-06UNK Hospital Number: Repository [id number] Date:8855-52-59[address], [place] [address]TF: 05/14/2018 Tertiary NOT GIVENUNK Ivis Insurance:SELF PAY [facility] Number: Effective Repository Date:2017-06-17 05/06/2018 JV K MARVA Primary JV K MARVA Ivis Jr.2244 DIMITRI Insurance:MEDICARE Jr.: [place] A [facility] [id number] [address]Lsi: (330) Number: Repository [phone] () [id number] Date:2017-06-17 05/06/2018 Secondary JV K MARVA Ivis Insurance:WPS Jr.: [facility] [id number] Hospital Number: Repository [id number] Date:4750-23-86GP [address], [place] [address]QJ: 05/06/2018 Tertiary NOT GIVENUNK Ivis Insurance:SELF PAY [facility] Number: Effective Repository Date:2018-05-06 03/23/2018 JV K MARVA Primary JV K MARVA Ivis Jr.2244 DIMITRI Insurance:MEDICARE Jr.: [place] PART A [facility] [id number] Hospital [address]Jjz: (330) Number: Repository [phone] () [id number] Date:2018-03-23 03/23/2018 Secondary JV K MARVA Iron Insurance:WPS Jr.: [facility] [id number] Hospital Number: Repository [id number] Date:4443-43-00NQ [address], [place] [address]LB: 03/23/2018 Tertiary NOT GIVENUNK Iron Insurance:SELF PAY [facility] Number: Effective Repository Date:2018-03-23 03/19/2018 JV K MARVA Primary JV K MARVA Iron Jr.2244 DIMITRI Insurance:MEDICARE Jr.: [place] [facility] [id number] Hospital [address]Hov: (330) Number: Repository [phone] () [id number] Date:2018-03-19 03/19/2018 Secondary JV K MARVA Iron Insurance:WPS Jr.: [facility] [id number] Hospital Number: Repository [id number] Date:5739-56-83KI [address] [address]UB: 03/19/2018 Tertiary NOT GIVENUNK Iron Insurance:SELF PAY [facility] Number: Effective Repository Date:2018-03-19 03/19/2018 JV K MARVA Primary JV K MARVA Ivis Jr.2244 DIMITRI Insurance:MEDICARE Jr.: [place] [facility] [id number] Hospital [address]Aux: (330) Number: Repository [phone] () [id number] Date:2018-03-19 03/19/2018 Secondary JV K MARVA Ivis Insurance:WPS Jr.: [facility] [id number] Hospital Number: Repository [id number] Date:3334-96-83RB [address], [place] [address]IY: 03/19/2018 Tertiary NOT GIVENUNK Ivis Insurance:SELF PAY [facility] Number: Effective Repository Date:2018-03-19 03/19/2018 JV RAPPERS Primary JV DURHAM Iron Jr.2244 DIMITRI Insurance:MEDICARE Jr.: [place] A [facility] [id number] [id number]: (330) Number: Repository [phone] () [id number] Date:2018-03-19 03/19/2018 Secondary JV Merary DURHAM Ivis Insurance:WPS Jr.: [facility] [id number] Hospital Number: Repository [id number] Date:4802-35-00XO [address], [place] [address]PW: 03/19/2018 Tertiary NOT GIVENUNK Ivis Insurance:SELF PAY [facility] Hospital Number: Effective Repository Date:2018-03-19 03/19/2018 JV K MARVA Primary JV Merary MARVA Iron Jr.2244 DIMITRI Insurance:MEDICARE Jr.: [place] [facility] [id number] Hospital [address]Ace: (330) Number: Repository [phone] () [id number] Date:2018-03-19 03/19/2018 Secondary JV K MARVA Ivis Insurance:WPS Jr.: [facility] [id number] Hospital Number: Repository [id number] Date:1182-33-87PS [address], [place] [address]EU: 03/19/2018 Tertiary NOT GIVENUNK Iron Insurance:SELF PAY [facility] Hospital Number: Effective Repository Date:2018-03-19 03/19/2018 JV Merary RAPPMARVA Primary VJ Merary MARVA [place] Jr.2244 DIMITRI Insurance:MEDICARE Jr.: [place] [facility] [id number] Hospital [address]Hep: (330) Number: Repository [phone] () [id number] Date:2018-03-19 03/19/2018 Secondary JV K MARVA Iron Insurance:WPS Jr.: [facility] [id number] Hospital Number: Repository [id number] Date:3160-28-57GP [address], [place] [address]JN: 03/19/2018 Tertiary NOT GIVENUNK Iron Insurance:SELF PAY [facility] Hospital Number: Effective Repository Date:2018-03-19 03/02/2018 JV Merary RAPPMARVA Primary JV Langston Jr.2244 DIMITRI Insurance:MEDICARE Jr.: [place] [facility] [id number] Hospital 80[address]Qou: (330) Number: Repository [phone] () [id number] Date:2017-08-14 03/02/2018 Secondary JV K MARVA Iron Insurance:WPS Jr.: [facility] [id number] Hospital Number: Repository [id number] Date:1064-15-78JW [address], [place] [address]OY: 03/02/2018 Tertiary NOT GIVENUNK Ivis Insurance:SELF PAY [facility] Hospital Number: Effective Repository Date:2018-03-02 01/27/2018 JV K MARVA Primary JV K MARVA Ivis Jr.2244 DIMITRI Insurance:MEDICARE Jr.: [place] [facility] [id number] Hospital 29[address]Ttd: (330) Number: Repository [phone] () [id number] Date:2017-06-17 01/27/2018 Secondary JV K MARVA Iron Insurance:WPS Jr.: [facility] [id number] Hospital Number: Repository [id number] Date:0729-96-88BW [address] [place] [address]JK: 01/27/2018 Tertiary NOT GIVENUNK Ivis Insurance:SELF PAY [facility] Hospital Number: Effective Repository Date:2018-01-27 01/13/2018 JV K MARVA Primary JV K MARVA Iron Jr.2244 DIMITRI Insurance:MEDICARE Jr.: [place] [facility] [id number] Hospital 15482Inc: (330) Number: Repository [phone] () [id number] Date:2017-10-15 01/13/2018 Secondary JV K MARVA Iron Insurance:WPS Jr.: [facility] [id number] Hospital Number: Repository [id number] Date:1939-16-69ZV [address], [place] [address]GI: 01/13/2018 Tertiary NOT GIVENUNK Ivis Insurance:SELF PAY [facility] Hospital Number: Effective Repository Date:2017-10-15 12/23/2017 JV K MARVA Primary JV K MARVA Ivis Jr.2244 DIMITRI Insurance:MEDICARE Jr.: [place] [facility] [id number] Hospital 88[address]Bvj: (330) Number: Repository [phone] () [id number] Date:2017-12-21 12/23/2017 Secondary JV K MARVA Ivis Insurance:WPS Jr.: [facility] [id number] Hospital Number: Repository [id number] Date:1129-62-12VF [address], [place] [address]ZF: 12/23/2017 Tertiary NOT GIVENUNK Iron Insurance:SELF PAY [facility] Hospital Number: Effective Repository Date:2017-12-23 12/23/2017 JV Merary RAPPMARVA Primary JV K MARVA Iron Jr.2244 DIMITRI Insurance:MEDICARE Jr.: [place] [facility] [id number] Hospital 35[address]Stg: (330) Number: Repository [phone] () [id number] Date:2017-12-21 12/23/2017 Secondary JV K MARVA Ivis Insurance:WPS Jr.: [facility] [id number] Hospital Number: Repository [id number] Date:3367-23-48BC [address], [place] [address]AW: 12/23/2017 Tertiary NOT GIVENUNK Iron Insurance:SELF PAY [facility] Hospital Number: Effective Repository Date:2017-12-21 12/22/2017 JV Merary MARVA Primary JV Merary [place] Jr.2244 DIMITRI Insurance:MEDICARE Jr.: [place] [facility] [id number] Hospital 739[address]Flf: (330) Number: Repository [phone] () [id number] Date:2017-12-21 12/22/2017 Secondary JV K MARVA Iron Insurance:WPS Jr.: [facility] [id number] Hospital Number: Repository [id number] Date:6787-96-06HE [address], [place] [address]OB: 12/22/2017 Tertiary NOT GIVENUNK Iron Insurance:SELF PAY [facility] Hospital Number: Effective Repository Date:2017-12-22 12/19/2017 JV K MARVA Primary JV K MARVA Ivis Jr.2244 DIMITRI Insurance:MEDICARE Jr.: [place] [facility] [id number] Hospital [address]Ysy: (330) Number: Repository [phone] () [id number] Date:2017-12-19 12/19/2017 Secondary JV K MARVA Ivis Insurance:WPS Jr.: [facility] [id number] Hospital Number: Repository [id number] Date:0785-77-92QM [address] [place] [address]KZ: 12/19/2017 Tertiary NOT GIVENUNK Ivis Insurance:SELF PAY [facility] Hospital Number: Effective Repository Date:2017-12-19 12/04/2017 JV K MARVA Primary JV K MARVA Iron Jr.2244 DIMITRI Insurance:MEDICARE Jr.: [place] [facility] [id number] Hospital 07908Hqg: (330) Number: Repository [phone] () [id number] Date:2017-10-24 12/04/2017 Secondary JV K MARVA Ivis Insurance:WPS Jr.: [facility] [id number] Hospital Number: Repository [id number] Date:2205-41-95OQ [address], [place] [address]YW: 12/04/2017 Tertiary NOT GIVENUNK Ivis Insurance:SELF PAY [facility] Hospital Number: Effective Repository Date:2017-10-24 12/04/2017 JV K MARVA Primary JV K MARVA Ivis Jr.2244 DIMITRI Insurance:MEDICARE Jr.: [place] [facility] [id number] Hospital 952[address]Qml: (330) Number: Repository [phone] () [id number] Date:2017-10-24 12/04/2017 Secondary JV K MARVA Ivis Insurance:WPS Jr.: [facility] [id number] Hospital Number: Repository [id number] Date:0696-81-47NU [address], [place] [address]AE: 12/04/2017 Tertiary NOT GIVENUNK Ivis Insurance:SELF PAY [facility] Number: Effective Repository Date:2017-12-04 12/04/2017 JV Merary RAPPMARVA Primary JV K MARVA Iron Jr.2244 DIMITRI Insurance:MEDICARE Jr.: [place] [facility] [id number] [id number]: (330) Number: Repository [phone] () [id number] Date:2017-10-24 12/04/2017 Secondary JV K MARVA Ivis Insurance:WPS Jr.: [facility] [id number] Hospital Number: Repository [id number] Date:1988-04-91XI [address], [place] [address]EM: 12/04/2017 Tertiary NOT GIVENUNK Ivis Insurance:SELF PAY [facility] Number: Effective Repository Date:2017-10-24 11/24/2017 JV K MARVA Primary JV K MARVA Iron Jr.2244 DIMITRI Insurance:MEDIC[place] Jr.: [place] [facility] [id number] [place] [id number]: (330) Number: Repository [phone] () [id number] Date:2017-10-22 11/24/2017 Secondary JV K MARVA Iron Insurance:WPS Jr.: [facility] [id number] Hospital Number: Repository [id number] Date:4490-34-39RJ [address], [place] [address]PY: 11/24/2017 Tertiary NOT GIVENUNK Iron Insurance:SELF PAY [facility] Hospital Number: Effective Repository Date:2017-10-22 10/24/2017 JV K MARVA Primary JV K MARVA Iron Jr.2244 DIMITRI Insurance:MEDICARE Jr.: [place] PART A [facility] [id number] Hospital 49938Dpg: (330) Number: Repository [phone] () [id number] Date:2017-09-25 10/24/2017 Secondary JV K MARVA Ivis Insurance:WPS Jr.: [facility] [id number] Hospital Number: Repository [id number] Date:6261-69-61QU [address], [place] [address]YB: 10/24/2017 Tertiary NOT GIVENUNK Iron Insurance:SELF PAY [facility] Hospital Number: Effective Repository Date:2017-10-24 10/23/2017 JV K MARVA Primary JV K MARVA Ivis Jr.2244 DIMITRI Insurance:MEDICARE Jr.: [place] [facility] [id number] Hospital 94002Ens: (330) Number: Repository [phone] () [id number] Date:2017-06-17 10/23/2017 Secondary JV K MARVA Iron Insurance:WPS Jr.: [facility] [id number] Hospital Number: Repository [id number] Date:3281-08-25WF [address], [place] [address]DX: 10/23/2017 Tertiary NOT GIVENUNK Iron Insurance:SELF PAY [facility] Hospital Number: Effective Repository Date:2017-10-23 10/20/2017 JV K MARVA Primary JV K MARVA Iron Jr.2244 DIMITRI Insurance:MEDICARE Jr.: [place] [facility] [id number] Hospital 79361Lub: (330) Number: Repository [phone] () [id number] Date:2017-10-20 10/20/2017 Secondary JV K MARVA Ivis Insurance:WPS Jr.: [facility] [id number] Hospital Number: Repository [id number] Date:3071-28-31WS [address], [place] [address]OV: 10/20/2017 Tertiary NOT GIVENUNK Iron Insurance:SELF PAY [facility] Number: Effective Repository Date:2017-10-20 10/15/2017 JV K MARVA Primary JV K MARVA Ivis Jr.2244 DIMITRI Insurance:MEDICARE Jr.: [place] [facility] [id number] Hospital 620[address]Uuq: (330) Number: Repository [phone] () [id number] Date:2017-06-17 10/15/2017 Secondary JV K MARVA Ivis Insurance:WPS Jr.: [facility] [id number] Hospital Number: Repository [id number] Date:4879-23-49CB [address], [place] [address]EU: 10/15/2017 Tertiary NOT GIVENUNK Iron Insurance:SELF PAY [facility] Number: Effective Repository Date:2017-10-15 10/06/2017 JV K MAVRA Primary JV K MARVA Iron Jr.2244 DIMITRI Insurance:MEDICARE Jr.: [place] [facility] [id number] Hospital 736[address]Ssf: (330) Number: Repository [phone] () [id number] Date:2017-10-06 10/06/2017 Secondary JV K MARVA Ivis Insurance:WPS Jr.: [facility] [id number] Hospital Number: Repository [id number] Date:0622-22-39JH [address], [place] [address]YE: 10/06/2017 Tertiary NOT GIVENUNK Ivis Insurance:SELF PAY [facility] Hospital Number: Effective Repository Date:2017-10-06 09/29/2017 JV K MARVA Primary JV K MARVA [facility] JR.: Insurance:MEDICARE A JR.: [facility] Number: [id number] Repository DIMITRI [id number] [place], [place] Date: [address]Yld: () 09/29/2017 Secondary JV [facility] Insurance: FOR JR.: [facility] Number: [id number] Repository [id number] Date: 09/29/2017 JV Merary MARVA Primary JV Merary MARVA Ivis Jr.2244 DIMITRI Insurance:MEDICARE Jr.: [place] [facility] [id number] Hospital 22667Zdj: 330) Number: Repository [phone] () [id number] Date:2017-09-29 09/29/2017 Secondary JV Merary MARVA Ivis Insurance:WPS Jr.: [facility] [id number] Hospital Number: Repository [id number] Date:0368-26-48PM [address], [place] [address]HW: 09/29/2017 Tertiary NOT GIVENUNK Ivis Insurance:SELF PAY [facility] Number: Effective Repository Date:2017-09-29 09/25/2017 JV Merary MARVA Primary JV K MARVA Iron Jr.2244 DIMITRI Insurance:MEDICARE Jr.: [place] [facility] [id number] Hospital 756[address]Ntt: (330) Number: Repository [phone] () [id number] Date:2017-09-24 09/25/2017 Secondary JV K MARVA Iron Insurance:WPS Jr.: [facility] [id number] Hospital Number: Repository [id number] Date:9909-34-83RT [address], [place] [address]KI: 09/25/2017 Tertiary NOT GIVENUNK Ivis Insurance:SELF PAY [facility] Number: Effective Repository Date:2017-09-25 09/17/2017 JV K MARVA Primary JV K MARVA Iron Jr.2244 DIMITRI Insurance:MEDICARE Jr.: [place] [facility] [id number] Hospital 87745Ctu: (330) Number: Repository [phone] () [id number] Date:2017-06-17 09/17/2017 Secondary JV K MARVA Ivis Insurance:WPS Jr.: [facility] [id number] Hospital Number: Repository [id number] Date:2992-96-94PX [address] [place] [address]PY: 09/17/2017 Tertiary NOT GIVENUNK Iron Insurance:SELF PAY [facility] Hospital Number: Effective Repository Date:2017-09-17 09/10/2017 JV DURHAM Primary JV DURHAM Iron Jr.2244 DIMITRI Insurance:MEDICARE Jr.: [place] [facility] [id number] [id number]: (330) Number: Repository [phone] () [id number] Date:2017-06-17 09/10/2017 Secondary JV K MARVA Iron Insurance:WPS Jr.: [facility] [id number] Hospital Number: Repository [id number] Date:2433-82-98PA [address], [place] [address]PF: 09/10/2017 Tertiary NOT GIVENUNK Iron Insurance:SELF PAY [facility] Hospital Number: Effective Repository Date:2017-09-10 09/01/2017 JV RAPPERS Primary JV DURHAM Iron Jr.2244 DIMITRI Insurance:MEDICARE Jr.: [place] [facility] [id number] Hospital 31366Zxr: (330) Number: Repository [phone] () [id number] Date:2017-09-01 09/01/2017 Secondary JV K MARVA Ivis Insurance:WPS Jr.: [place] [id number] Hospital Number: Repository [id number] Date:2561-48-93JG [address], [place] [address]DK: 09/01/2017 Tertiary NOT GIVENUNK Ivis Insurance:SELF PAY [facility] Number: Effective Repository Date:2017-09-01 09/01/2017 JV K MARVA Primary JV K MARVA [place] Jr.2244 DIMITRI Insurance:MEDICARE Jr.: [place] [facility] [id number] Hospital 00255Nvp: (330) Number: Repository [phone] () [id number] Date:2017-06-17 09/01/2017 Secondary JV K MARVA Ivis Insurance:WPS Jr.: [facility] [id number] Hospital Number: Repository [id number] Date:4851-23-56GK [address], [place] [address]HE: 09/01/2017 Tertiary NOT GIVENUNK Ivis Insurance:SELF PAY [facility] Hospital Number: Effective Repository Date:2017-09-01 08/31/2017 JV K MARVA Primary JV K MARVA [place] Jr.2244 DIMITRI Insurance:MEDICARE Jr.: [place] [facility] [id number] Hospital 62444Oll: (330) Number: Repository [phone] () [id number] Date:2017-08-31 08/31/2017 Secondary JV K MARVA Iron Insurance:WPS Jr.: [facility] [id number] Hospital Number: Repository [id number] Date:[id number], [place] [address]XY: 08/31/2017 Tertiary NOT GIVENUNK Iron Insurance:SELF PAY [facility] Hospital Number: Effective Repository Date:2017-08-31 08/20/2017 JV K Primary JV K Iron [id number] Insurance:MEDICARE SOWERSDOB: [facility] PART [id number] [place] [facility]: Rep[facility] [id number]: [id number] [phone] () Date:2017-06-17 08/20/2017 Secondary JV K Ivis Insurance:WPS SOWERSDOB: [facility] FOR [facility] [id number] Hospital Number: Repository [id number] Date:8869-81-28[address], [place] [address]GQ: 08/20/2017 Tertiary NOT GIVENUNK Ivis Insurance:SELF PAY [facility] Hospital Number: Effective Repository Date:2017-08-20 08/14/2017 JV K Primary JV K Ivis [id number] Insurance:MEDICARE SOWERSDOB: [id number] [place] Number[facility] [id number]: 330 [id number] [phone] () Date:2017-05-22 08/14/2017 Secondary JV K Iron Insurance:WPS SOWERSDOB: [facility] [id number] Hospital Number: Repository [id number] Date:1440-32-50[address], [place] [address]VH: 08/14/2017 Tertiary NOT GIVENUNK Iron Insurance:SELF PAY [facility] Hospital Number: Effective Repository Date:2017-05-22 08/14/2017 JV K Primary JV K Iron [id number] Insurance:MEDICARE SOWERSDOB: [facility] [id number] Number[facility] Repository [id number]: 330 [id number] [phone] () Date:2017-08-14 08/14/2017 Secondary JV K Ivis Insurance:WPS SOWERSDOB: [facility] [id number] Hospital Number: Repository [id number] Date:4958-16-46[address], [place] [address]UL: 08/14/2017 Tertiary NOT GIVENUNK Ivis Insurance:SELF PAY [facility] Number: Effective Repository Date:2017-08-14 08/12/2017 JV K Primary JV K Ivis [id number] Insurance:MEDICARE SOWERSDOB: [facility] [id number] Number[place] Repository [id number]: 330 [id number] [phone] () Date:2017-08-12 08/12/2017 Secondary JV K Iron Insurance:WPS SOWERSDOB: [facility] [id number] Hospital Number: Repository [id number] Date:6590-17-66ZD [facility] [address], [place] [address]EQ: 08/12/2017 Tertiary NOT GIVENUNK Iron Insurance:SELF PAY [facility] Number: Effective Repository Date:2017-08-12 07/30/2017 JV K Primary JV K Iron [id number] Insurance:MEDICARE SOWERSDOB: [facility] [id number] Number[place] Repository [id number]: 330 [id number] [phone] () Date:2017-06-17 07/30/2017 Secondary JV K Ivis Insurance:WPS SOWERSDOB: [facility] [id number] Hospital Number: Repository [id number] Date:9420-05-52[address], [place] [address]DQ: 07/30/2017 Tertiary NOT GIVENUNK Iron Insurance:SELF PAY [facility] Hospital Number: Effective Repository Date:2017-07-30 07/09/2017 JV K Primary JV K Ivis [id number] Insurance:MEDICARE SOWERSDOB: [facility] PART [facility] [id number] Number[place] Repository [id number]: 330 [id number] [phone] () Date:2017-06-17 07/09/2017 Secondary JV K Ivis Insurance:WPS SOWERSDOB: [facility] [id number] Hospital Number: Repository [id number] Date:8408-85-42GU [address] [address]TM: 07/09/2017 Tertiary NOT GIVENUNK Ivis Insurance:SELF PAY [facility] Number: Effective Repository Date:2017-07-09 07/08/2017 JV K Primary JV K Ivis [id number] Insurance:MEDICARE SOWERSDOB: [facility] [id number] Number: Repository [id number]: 330 [id number] [phone] () Date:2017-06-30 07/08/2017 Secondary JV K Iron Insurance:WPS SOWERSDOB: [facility] [id number] Hospital Number: Repository [id number] Date:9520-69-55LS [address], [place] [address]PA: 07/08/2017 Tertiary NOT GIVENUNK Iron Insurance:SELF PAY [facility] Number: Effective Repository Date:2017-07-08 07/08/2017 JV K Primary JV K Ivis [id number] Insurance:MEDICARE SOWERSDOB: [facility] [id number] Number[place] Repository [id number]: 330 [id number] [phone] () Date:2017-06-30 07/08/2017 Secondary JV K Ivis Insurance:WPS SOWERSDOB: [facility] [id number] Hospital Number: Repository [id number] Date:0211-78-01TT [address] [address]EX: 07/08/2017 Tertiary NOT GIVENUNK Ivis Insurance:SELF PAY [facility] Number: Effective Repository Date:2017-06-30 06/30/2017 JV K Primary JV K Ivis [id number] Insurance:MEDICARE SOWERSDOB: [id number] [place] Number[facility] Repository [id number]: 330 [id number] [phone] () Date:2017-06-23 06/30/2017 Secondary JV K Iron Insurance:WPS SOWERSDOB: [facility] [id number] Hospital Number: Repository [id number] Date:6632-22-41FJ [address], [place] [address]RJ: 06/30/2017 Tertiary NOT GIVENUNK Ivis Insurance:SELF PAY [facility] Number: Effective Repository Date:2017-06-23 06/25/2017 JV K Primary JV K Ivis [id number] Insurance:MEDICARE SOWERSDOB: [facility] [id number] Number[place] Repository [id number]: 330 [id number] [phone] () Date:2017-06-17 06/25/2017 Secondary JV K Ivis Insurance:WPS SOWERSDOB: [facility] [id number] Hospital Number: Repository [id number] Date:5300-40-39[address], [place] [address]HT: 06/25/2017 Tertiary NOT GIVENUNK Ivis Insurance:SELF PAY [facility] Hospital Number: Effective Repository Date:2017-06-25 06/23/2017 JV K Primary JV K Iron [id number] Insurance:MEDICARE SOWERSDOB: [facility] [id number] Number: Repository [address]Fit: 330 [id number] [phone] () Date:2017-06-17 06/23/2017 Secondary JV K Ivis Insurance:WPS SOWERSDOB: [facility] [id number] Hospital Number: Repository [id number] Date:4362-04-09[address] [address]OQ: 06/23/2017 Tertiary NOT GIVENUNK Ivis Insurance:SELF PAY [facility] Number: Effective Repository Date:2017-06-23 SOCIAL HISTORY SOCIAL HISTORY No Social History Records FoundFAMILY HISTORY FAMILY HISTORY No Family History Records FoundPREGNANCY No Status Records FoundADVANCE DIRECTIVES ADVANCE DIRECTIVES No Advanced Directives Records FoundINFORMATION SOURCE INFORMATION SOURCE DATE CREATED AUTHOR AUTHOR'S ORGANIZATION 06/03/[address] [facility]
== END 2018-05-17 10:35 | disposition home or self-care (01) | DRG 603 ==
LOC: ED 11:15 → MS2 13:40
PROVIDERS: Emergency Provider Emergency Medicine; Family Provider Internal Medicine; PCP Internal Medicine; Visit Provider Family Medicine
DX: L03.116 Cellulitis of left lower limb (principal); I50.22 Chronic systolic (congestive) heart failure; C34.10 Malignant neoplasm of upper lobe, unspecified bronchus or lung; J44.9 Chronic obstructive pulmonary disease, unspecified; I25.10 Atherosclerotic heart disease of native coronary artery without angina pectoris; I11.0 Hypertensive heart disease with heart failure; F32.9 Major depressive disorder, single episode, unspecified; I48.2 Chronic atrial fibrillation; I27.21 Secondary pulmonary arterial hypertension; R19.5 Other fecal abnormalities; K21.9 Gastro-esophageal reflux disease without esophagitis; K55.20 Angiodysplasia of colon without hemorrhage; E66.9 Obesity, unspecified; Z86.14 Personal history of Methicillin resistant Staphylococcus aureus infection; Z68.39 Body mass index [BMI] 39.0-39.9, adult; Z87.891 Personal history of nicotine dependence; Z95.5 Presence of coronary angioplasty implant and graft; Z95.1 Presence of aortocoronary bypass graft; Z87.19 Personal history of other diseases of the digestive system; Z79.01 Long term (current) use of anticoagulants; D50.0 Iron deficiency anemia secondary to blood loss (chronic); L97.529 Non-pressure chronic ulcer of other part of left foot with unspecified severity
CPT/HCPCS: 36415; 80048; 85025; 87040; 87640; 94640; 97110; 97162; 97166; 97802; 99283; J1756; J7030; J7040; J7050; A4216

== ENCOUNTER 2018-06-14 15:29 | Inpatient (IN) | payer MEDICARE, OTHER, SELFPAY ==
[2018-06-14] VITALS (20 sets, daily range): BP systolic 140–191; BP diastolic 62–114; PULSE 85–116; RESP 12–30; TEMP 36.8–37.1; O2SAT 92–100; BMI 35.9; BMI 41.0
--- NOTE | 2018-06-14 15:53 | RAD_ITS ---
STUDY: X-RAY CHEST REASON FOR EXAM: Male, 72 years old. Difficulty breathing, labored breathing, shortness of breath TECHNIQUE: AP COMPARISON: 12/21/2017 FINDINGS: Right chest port is stable. EKG leads project over the chest. Lungs are mildly hyperexpanded. Reticular parenchymal opacity along the right heart border in the medial right lung base is new since the prior study. There is no demonstrated pleural abnormality. There is mild cardiac enlargement. Sternal wires and mediastinal surgical clips compatible with prior CABG. Normal visualized pulmonary arteries. There is atherosclerotic tortuosity of the aortic arch and descending thoracic aorta. No acute bony process. There is no demonstrated abnormality of the visualized soft tissue structures of the upper abdomen. RAD/Chest 1 View (Portable) IMPRESSION: 1. Developing infiltrate or atelectasis of the medial right lower lobe. 2. Mild cardiomegaly, CABG. Electronically Signed: Emerson Durant MD at 17:02 EST , Service support ,
--- NOTE | 2018-06-14 15:53 | EKG12_ITS ---
Test Reason : SOB Blood Pressure : / mmHG Vent. Rate : 107 BPM Atrial Rate : 141 BPM P-R Int : 000 ms QRS Dur : 086 ms QT Int : 290 ms P-R-T Axes : 000 -49 112 degrees QTc Int : 387 ms Atrial fibrillation with rapid ventricular response Left axis deviation Nonspecific ST and T wave abnormality Abnormal ECG Confirmed by CORTEZ CLEARY, ROGELIO ([id number]), photograph editor ALEXIS RO ([id number]) on 06/17/2018 2:27:59 PM Referred By: Confirmed By:ROGELIO TORO MD
[2018-06-14] MEDS: Albuterol 2.5 MG/3 ML VIAL.NEB. INHALATION ×3 (16:25→20:38)
[2018-06-14] MEDS: Ipratropium/Albuterol Sulfate 3 ML AMPUL.NEB INHALATION (16:25)
[2018-06-14] MEDS: MethylPREDNISolone 125 MG/2 ML Vial 60 MG IV (16:34)
[2018-06-14 16:40] LABS: Allen Test POS; Base Excess 0 mmol/L (-2 to +2); Bicarbonate 25.1 mmol/L (22-26); Blood Gas Specimen Type ART; EPAP 6; FI02 35; IPAP 12; PO2 83 mmHG (75-100); RR 12; SITE R Radial; SO2 96 % (95-99); Time Given 1632; Total Carbon Dioxide 26 mmol/L; pCO2 41.1 mmHg (35-45); pH 7.39 (7.35-7.45)
[2018-06-14 16:42] LABS: Absolute Lymphocyte Count 0.58 X10^3/ul (0.83-4.51); Absolute Neutrophil Count 8.1 X10^3/uL (2.0-7.7); Basophil# 0.02 X10^3/uL; Basophil% 0.2 % (0-1); Eosinophil# 0.04 X10^3/uL; Eosinophils% 0.4 % (0-5); Hematocrit 35.6 % (40-54); Hemoglobin 11.2 g/dl (13.0-16.5); Lymphocyte # 0.58 X10^3/ul (4.0); Lymphocyte % 5.6 % (19-41); Mean Corp Hgb Conc 30.7 g/gl (32-36); Mean Corpuscular Hgb 26.7 pg (27.0-32.0); Mean Corpuscular Volume 84.8 fL (80-94); Monocyte# 0.82 X10^3/uL; Monocyte% 8.5 % (0-10); Neutrophil # 8.12 X10^3/uL (2.7-7.7); Neutrophil % 84.6 % (47-70); Platelet Count 207 K/mm3 (150-450); RBC Distribution Width CV 18.7 % (11.6-14.6)
[2018-06-14 16:43] LABS: Differential Indicated SCAN CRITERIA MET; POSITIVE COUNT NO; POSITIVE DIFFERENTIAL YES; POSITIVE MORPHOLOGY NO
[2018-06-14 16:49] LABS: ALB/GLOB Ratio 0.9 RATIO (0.9-2.4); AST(SGOT) 40 U/L (15-37); Alanine Aminotransfer ALT/SGPT 27 U/L (16-61); Albumin, Serum 3.2 g/dL (3.2-5.0); Alkaline Phosphatase 89 U/L (45-117); Anion Gap 8 (5-15); BUN 8 mg/dL (7-18); BUN/Creat Ratio 7.8 RATIO (10-20); Chloride 104 mmol/L (98-107); Creatinine, Serum 1.03 mg/dL (0.70-1.30); EST Glomerular Filtration Rate 75 mL/min (>60); Est Glom Filt Rate - Afr Amer 91 mL/min (>60); Estimated Creatinine Clearance 66.94 ml/min; Globulin 3.7 g/dL (2.2-4.2); Glucose 131 mg/dL (74-106); Potassium 3.8 mmol/L (3.5-5.1); Protein, Total 6.9 g/dL (6.4-8.2); Sodium Level 137 mmol/L (136-145)
[2018-06-14 16:53] LABS: Lactic Acid 1.4 mmol/L (0.4-2.0)
[2018-06-14] MEDS: Ceftriaxone 1 GM/50 ML BAG IV (16:54)
[2018-06-14 16:55] LABS: Differential Comment SCANNED
--- NOTE | 2018-06-14 17:59 | ED.VISSUMM ---
- ER Visit Summary Date of Service: 06/14/18 Chief Complaint: Trouble breathing. History of Present Illness: The patient is a 72 M who has multiple medical problems presents by ambulance on BiPAP. Patient was in respiratory distress per EMS. Patient report reports productive cough of colored sputum for the past 2 days. He has been ill for the past several days. He has a past medical history of coronary disease, COPD, GERD, hypertension, remote history of lung cancer, chronic A. fib on anticoagulant and Parkinson's disease. He also has history of obstructive sleep apnea and wears a CPAP mask at night. Physical Examination: On arrival patient's respiratory distress. He is not hypoxic. Vital signs noted his blood pressure is elevated 160/81. Heart rate 109 and monitor reveals A. fib. Respiratory rate of 22. He is not febrile. Head is atraumatic normocephalic. Pupils are equal round reactive. Extraocular muscles are intact. TMs are pearly white with landmarks noted. Nares patent with no drainage. Posterior pharynx without erythema or exudate. Uvula is midline. There is no dysphonia or dysphasia. Trachea is midline. There is no stridor with auscultation of the neck. Rales noted right lower lobe. Wheezing throughout with increased x-ray phase and diminished breath sounds. Heart is irregularly irregular and rapid. Abdomen soft nontender. He has slight edema both lower extremities. Neuro exam is nonfocal. Test Results: EKG atrial fibrillation with a rate of 107. QRS durations normal. QT interval is normal. [place] is left. Chest x-ray reveals a right lower lobe infiltrate. White count normal. ABG reveals respiratory failure with hypoxia. There is no acid-base disturbance. Lactate normal at 1.4. Troponin 0 0.057. Glucose 131. Hemoglobin 11.2. Emergency Department Course and Treatment: Patient remained on BiPAP. Sepsis workup was undertaken. Clinically patient has a right lower lobe pneumonia. Since he is on BiPAP by definition he has severe sepsis. Blood cultures were obtained and he was started on antibiotics. He also received Solu-Medrol for his wheezing and DuoNeb as well as 3 albuterol treatments. Treatment Plan: Patient states he feels better. Hospitalist was contacted for admission for severe sepsis Disposition: PCU Impression: 1. Respiratory failure with hypoxia 2. Exacerbation of COPD 3. Community acquired pneumonia, right lower lobe 4. Severe sepsis This note was generated with [employer] dictation software. It may contain incorrect words, spelling, and punctuation that were not noted in review of the chart prior to signing ED Disposition - Plan for ED Patient: Chief Complaint: Shortness of Breath Referrals: Fany Hobson DO [Primary Care Provider] -
--- NOTE | 2018-06-14 18:30 | PCM.HP.STD ---
Problem List (1) GI bleed Status: Chronic Comment: tsferred to [facility], transfused with 2 units PRBC's. (2) Chronic atrial fibrillation Status: Chronic (3) Secondary pulmonary arterial hypertension Status: Chronic (4) Atherosclerosis of coronary artery of [place] heart without angina pectoris Status: Chronic Comment: CABG x 2 HERRERA-LAD, SVG-OM 02/14/2006 [id number] anastomosis-LAD w/ Taxus 2.75 x 8 mm and POBA-PDA 12/23/2006 (5) H/O coronary artery bypass surgery Status: Chronic Comment: CABG x 2 HERRERA-LAD, SVG-OM 02/14/[address] Fei Castillo, [facility] (6) GERD (gastroesophageal reflux disease) Status: Chronic (7) Essential tremor Status: Chronic (8) Parkinsons Status: Chronic (9) Dementia Status: Chronic (10) HEBER (obstructive sleep apnea) Status: Chronic (11) Benign essential hypertension Status: Chronic History of Present Illness Date of Admission: 06/14/18 Chief Complaint: Shortness of breath. The patient is a 72 year old M with past medical history as mentioned above presented to the emergency room because of shortness of breath. His illness started 2 days ago with shortness of breath at rest, exaggerated by even minimal exertion, not relieved with rest associated with productive cough with yellow sputum. He reported intermittent associated orthopnea, mentioned that he cannot sleep flat without elevation of his head. He reported subjective fever but he did not check his temperature at home. He denied chest pain, dizziness or lightheadedness. He does have a history of COPD and chronic respiratory failure and he has been on oxygen at night at 3 L as well as CPAP with sleep. He denied leg edema. Upon arrival to ER, patient was afebrile, tachycardic, blood pressure was slightly elevated, was dyspneic and tachypneic and he was on BiPAP. His pulse ox was 100% on BiPAP. His routine blood work was remarkable for chronic anemia with stable hemoglobin, otherwise normal. EKG revealed A. fib, heart rate has been around 105, no acute ischemic changes. Troponin was borderline elevated at 0.057. Chest x-ray revealed questionable right base infiltrate which is probably atelectasis versus minimal pulmonary vascular congestion. His ABG while patient on BiPAP revealed pH of 7.39, PCO2 of 41 and PO2 of 83. 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 Past Medical History Past Medical History (Chronic Problems): Chronic Problems (Last Updated 06/14/18 @ 18:29 by Barbara Mendoza MD) Cancer of upper lobe of left lung (Chronic) Iron deficiency anemia due to chronic blood loss (Chronic) Gastric AVMs, September 2017 GI bleed (Chronic) tsferred to [facility], transfused with 2 units PRBC's. Chronic atrial fibrillation (Chronic) angiolasty and stenting to BLE iliac arteries (Chronic 08/04/12) History of cardioversion (Chronic 12/2016) Secondary pulmonary arterial hypertension (Chronic) Atherosclerosis of coronary artery of [place] heart without angina pectoris (Chronic) CABG x 2 HERRERA-LAD, SVG-OM 02/14/2006 [id number] anastomosis-LAD w/ Taxus 2.75 x 8 mm and POBA-PDA 12/23/2006 H/O coronary artery bypass surgery (Chronic 02/14/06) CABG x 2 HERRERA-LAD, SVG-OM 02/14/[address] 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 Chronic atrial fibrillation (Chronic) I48.2 Secondary pulmonary arterial hypertension (Chronic) I27.21 Atherosclerosis of coronary artery of [place] heart without angina pectoris (Chronic) I25.10 CABG x 2 HERRERA-LAD, SVG-OM 02/14/2006 [id number] anastomosis-LAD w/ Taxus 2.75 x 8 mm and POBA-PDA 12/23/2006 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 (Chronic) C34.12 Alcohol dependence (Chronic) F10.20 GERD (gastroesophageal reflux disease) (Chronic) K21.9 Essential tremor (Chronic) G25.0 Parkinsons (Chronic) G20 Dementia (Chronic) F03.90 HEBER (obstructive sleep apnea) (Chronic) G47.33 Benign essential hypertension (Chronic) I10 Adenocarcinoma of lung, stage 1 C34.90 Gastric AVM Q27.33 Allergies No Known Allergies Allergy (Verified 06/14/18 15:39) Home Medications: Ambulatory Orders Medication Instructions Recorded Fenofibrate [Tricor] 145 mg PO LUNCH 05/06/13 Folic Acid 1 mg PO DAILY@1200 05/06/13 Tiotropium [place] [Spiriva 18 MCG] 1 puff INHALATION DAILY 05/06/13 Duloxetine HCl 60 mg PO QHS 12/04/16 Pramipexole Di-HCl [Mirapex] 0.5 mg PO TID 12/04/16 aspirin 81 mg tablet,delayed 81 mg PO DAILY 10/06/17 release docusate sodium 100 mg capsule 100 mg PO BID cap 10/20/17 gabapentin 600 mg tablet 1,200 mg PO QHS tab 10/20/17 Formoterol Fumarate [Perforomist] 20 mcg INHALATION BID 12/22/17 Multivit-Min/Iron Fum/Folic AC 1 ea PO BID 12/22/17 [Rktmc-Jmyzahm-Qypzgztx Tablet] Omeprazole 20 mg PO DAILY@1700 12/22/17 Digoxin 0.25 mg PO DAILY 01/27/18 furosemide 20 mg tablet 20 mg PO QODAY 02/25/18 furosemide 40 mg tablet 40 mg PO QODAY tab 02/25/18 rivaroxaban 10 mg tablet 10 mg PO DAILY 02/25/18 losartan 25 mg tablet 25 mg PO DAILY 03/02/18 Metoprolol Tartrate 25 mg PO QHS 03/19/18 Potassium Chloride [K-Tab ER] 10 meq PO DAILY 03/19/18 Pravastatin Sodium 40 mg PO QHS 03/19/18 Senna [Senokot] 1 tablet PO DINNER 03/19/18 Cholecalciferol (Vitamin D3) 5,000 unit PO DAILY 06/14/18 [Vitamin D3] Surgical History: Surgical History (Last Updated 06/14/18 @ 18:30 by Barbara Mendoza MD) angiolasty and stenting to BLE iliac arteries (Chronic) Onset Date: 08/04/12 History of cardioversion (Chronic) Onset Date: 12/2016 Z98.890 H/O coronary artery bypass surgery (Chronic) Onset Date: 02/14/06 Z95.1 CABG x 2 HERRERA-LAD, SVG-OM 02/14/[address] Fei Castillo, [facility] Surgical History: coronary bypass surgery Psychiatric History: No pertinent psych hx Lives: Spouse/ Significant Other Smoking Status: Former smoker Alcohol: None Drugs: None - *Family History Maternal Family History: Family History (Last Reviewed 05/15/18 @ 13:39 by Titi Moore DO) Sister Alcoholism Cancer Mother Arthritis Father Arthritis Brother Cancer History Items: No pertinent history Paternal Family History: Family History (Last Reviewed 05/15/18 @ 13:39 by Titi Moore DO) Sister Alcoholism Cancer Mother Arthritis Father Arthritis Brother Cancer History Items: No pertinent history Review of Systems Constitutional: Reports: Fever - Subjective fever.. Denies: Anorexia, Chills, Weakness Eyes: Denies: Blurred vision, Double vision, Drainage, Eyelid Inflammation, Redness HEENT: Denies: Difficulty Hearing, Ear Pain, Eye Pain, Nasal Congestion, Sore Throat Cardiovascular: Reports: Orthopnea. Denies: Chest Pain, Chest Pressure, Chest Tightness, Heaviness, Light Headedness, Paroxysmal Noc. Dyspnea, Syncope Respiratory: Reports: Cough, Shortness of breath at rest, Sputum production. Denies: Pleuritic Pain, Wheezing Gastrointestinal: Denies: Abdominal Pain, Constipation, Diarrhea, Nausea, Vomiting Genitourinary: Denies: Dysuria, Frequency, Hematuria Musculoskeletal: Denies: Arm Pain, Back Pain, Foot Pain Skin: Denies: Dryness, Rash Neurological: Denies: Balance problems, Double vision, Change in Speech, Slurred speech, Confusion, Focal weakness, Incoordination Psychiatric: Denies: Anxiety, Depression Endocrine: Denies: Change in Body Habitus, Polydipsia VTE Information - Inpt Only VTE Present on Admission: No VTE Mechan Device Prophylaxis: None VTE Pharm Prophylaxis ordered?: No - Physical Exam General: Alert, Oriented x3, Cooperative, - - Moderately short of breath, on BiPAP. HEENT: Atraumatic, PERRLA, EOMI, Normocephalic Oral: Moist Mucosa, No Gingival or Mucosal Lesions/ Ulcerations Neck: Supple, No JVD, Negative Carotid Bruits, Trachea Midline, Thyroid Normal Size and Texture Lungs: No wheeze, Rales, Rhonchi, Short of Breath, Tachypneic, - - Decreased breath sounds bilateral, more at the bases with bilateral rhonchi and basilar crackles. Cardiovascular: Normal S1, Normal S2, No murmurs, PMI Normal, Irregular Rate, Tachycardic Abdomen: Bowel Sounds Present, Soft, Non Tender, Non-Distended, No Hepato-splenomegaly, Obese Extremities: No clubbing, No cyanosis, No edema Skin: No rashes, No breakdown Lymphatic: No Cervical, Supraclavicular, or Inguinal Adenopathy Neurological: Cranial nerves II-XII grossly intact, Motor Exam 5/5 strength throughout Psych/Mental Status: Normal Affect, Appropriate, Alert and oriented to time, place, person, mood and affect Vital Signs Temp Pulse Resp BP Pulse Ox 98.6 F 98 22 H 160/114 H 100 06/14/18 18:05 06/14/18 18:05 06/14/18 18:05 06/14/18 18:05 06/14/18 18:05 Oxygen Flow Rate (L/min) 15 Oxygen Delivery Method Bi-pap Weight: 250 lb 7.122 oz Body Mass Index (BMI) 35.9 Laboratory Tests Past 24 Hrs 06/14/18 06/14/18 06/14/18 16:10 16:10 16:10 WBC 10.0 RBC 4.20 L Hgb 11.2 L Hct 35.6 L MCV 84.8 MCH 26.7 L MCHC 30.7 L RDW 18.7 H RDW Differential 58.0 H Plt Count 207 MPV 10.0 Immature Gran % (Auto) 0.300 Neut % (Auto) 84.6 H Lymph % (Auto) 5.6 L [place] % (Auto) 8.5 Eos % (Auto) 0.4 Baso % (Auto) 0.2 Absolute Neuts (auto) 8.1 H Absolute Lymphs (auto) 0.58 L Total Counted Not Reportable Differential Comment SCANNED Specimen Type Sample Site pH Bicarbonate Actual POC Total CO2 Base Excess O2 Saturation O2 % ABG pCO2 ABG pO2 John Test Respiration Rate O2 Delivery Device EPAP IPAP Blood Gas Notified Whom Blood Gas Notified Time Sodium 137 Potassium 3.8 Chloride 104 Carbon Dioxide 25.0 Anion Gap 8 BUN 8 Creatinine 1.03 Estim Creat Clear Calc 66.94 Est GFR (MDRD) Af Amer 91 Est GFR (MDRD) Non-Af 75 BUN/Creatinine Ratio 7.8 L Glucose 131 H Lactic Acid 1.4 Calcium 8.0 L Total Bilirubin 0.60 AST 40 H ALT 27 Alkaline Phosphatase 89 Troponin I 0.057 H Total Protein 6.9 Albumin 3.2 Globulin 3.7 Albumin/Globulin Ratio 0.9 06/14/18 16:35 WBC RBC Hgb Hct MCV MCH MCHC RDW RDW Differential Plt Count MPV Immature Gran % (Auto) Neut % (Auto) Lymph % (Auto) [place] % (Auto) Eos % (Auto) Baso % (Auto) Absolute Neuts (auto) Absolute Lymphs (auto) Total Counted Differential Comment Specimen Type ART Sample Site R Radial pH 7.39 Bicarbonate Actual 25.1 POC Total CO2 26 Base Excess 0 O2 Saturation 96 O2 % 35 ABG pCO2 41.1 ABG pO2 83 John Test POS Respiration Rate 12 O2 Delivery Device Bi / C PAP EPAP 6 IPAP 12 Blood Gas Notified Whom ED Blood Gas Notified Time 1632 Sodium Potassium Chloride Carbon Dioxide Anion Gap BUN Creatinine Estim Creat Clear Calc Est GFR (MDRD) Af Amer Est GFR (MDRD) Non-Af BUN/Creatinine Ratio Glucose Lactic Acid Calcium Total Bilirubin AST ALT Alkaline Phosphatase Troponin I Total Protein Albumin Globulin Albumin/Globulin Ratio Clinical Impression(s) from Imaging Studies Chest X-Ray 06/14/18 15:53 IMPRESSION: 1. Developing infiltrate or atelectasis of the medial right lower lobe. 2. Mild cardiomegaly, CABG. 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 Patient is afebrile, no leukocytosis, lactic acid is normal. Blood culture sent. Plan: Admit to PCU, cardiac monitoring, sputum culture, pneumococcal and Legionella antigen, respiratory panel for viruses, bronchodilators, start empiric IV Zosyn and vancomycin, incentive spirometer, continue BiPAP, repeat CBC and BMP tomorrow morning, chest physiotherapy, PT OT evaluation and treatment. #2 acute on chronic hypoxic respiratory failure: Secondary to above in addition to probable acute on chronic CHF. Patient has been on oxygen at home mainly at night at 3 L in addition to CPAP on sleep. ABG reviewed as above but that was on BiPAP. No carbon dioxide retention. Plan: IV antibiotics, bronchodilators, IV diuretics, continue BiPAP. 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 Patient does have a history of chronic systolic CHF, 2D echocardiogram from November, revealed ejection fraction of 45%, severely dilated left ventricle RVSP of 60 consistent with moderate pulmonary hypertension. He had a stress echocardiogram on November, that revealed ejection fraction of 60%. Troponin is borderline elevated. EKG revealed A. fib, rate has been around 100, no acute ischemic changes. Plan: Stat BMP, 2D echocardiogram, IV Lasix, continue metoprolol and losartan as well as digoxin. #4 CAD status post CABG and stents: Plan as above, EKG reviewed, no acute changes, troponin slightly elevated. Plan for serial cardiac enzymes, 2D echocardiogram as above, continue aspirin, metoprolol, losartan and statins. #5 chronic atrial fibrillation: Rate has been around 100, blood pressure slightly elevated. Continue digoxin and metoprolol for rate control, continue Xarelto for anticoagulation. #6 hypertension: Blood pressure slightly elevated, continue losartan and metoprolol, start IV Lasix as above. #7 chronic anemia/history of GI bleed: Hemoglobin and hematocrit are stable, no evidence of active bleeding. Plan to repeat CBC tomorrow morning. #8 COPD/chronic respiratory failure: Patient has been on oxygen mainly at night and CPAP on sleep. Plan for bronchodilators, incentive spirometer, IV diuresis. #9 hyperlipidemia: Continue statins. #10 DVT prophylaxis: Continue Xarelto. This note was generated with [employer] software. It may contain incorrect words, spelling, and punctuation that were not noted in checking the note before signing. Code Visit Inpatient E&M: 80985 Init Hosp L3
--- NOTE | 2018-06-14 18:36 | HP.PCM_ITS ---
Problem List (1) GI bleed Status: Chronic Comment: tsferred to [facility], transfused with 2 units PRBC's. (2) Chronic atrial fibrillation Status: Chronic (3) Secondary pulmonary arterial hypertension Status: Chronic (4) Atherosclerosis of coronary artery of ute heart without angina pectoris Status: Chronic Comment: CABG x 2 HERRERA-LAD, SVG-OM 02/14/2006 [id number] anastomosis-LAD w/ Taxus 2.75 x 8 mm and POBA-PDA 12/23/2006 (5) H/O coronary artery bypass surgery Status: Chronic Comment: CABG x 2 HERRERA-LAD, SVG-OM 02/14/[address] Fei Castillo, [facility] (6) GERD (gastroesophageal reflux disease) Status: Chronic (7) Essential tremor Status: Chronic (8) Parkinsons Status: Chronic (9) Dementia Status: Chronic (10) HEBER (obstructive sleep apnea) Status: Chronic (11) Benign essential hypertension Status: Chronic History of Present Illness Date of Admission: 06/14/18 Chief Complaint: Shortness of breath. The patient is a 72 year old M with past medical history as mentioned above presented to the emergency room because of shortness of breath. His illness started 2 days ago with shortness of breath at rest, exaggerated by even minimal exertion, not relieved with rest associated with productive cough with yellow sputum. He reported intermittent associated orthopnea, mentioned that he cannot sleep flat without elevation of his head. He reported subjective fever but he did not check his temperature at home. He denied chest pain, dizziness or lightheadedness. He does have a history of COPD and chronic respiratory failure and he has been on oxygen at night at 3 L as well as CPAP with sleep. He denied leg edema. Upon arrival to ER, patient was afebrile, tachycardic, blood pressure was slightly elevated, was dyspneic and tachypneic and he was on BiPAP. His pulse ox was 100% on BiPAP. His routine blood work was remarkable for chronic anemia with stable hemoglobin, otherwise normal. EKG revealed A. fib, heart rate has been around 105, no acute ischemic changes. Troponin was borderline elevated at 0.057. Chest x-ray revealed questionable right base infiltrate which is probably atelectasis versus minimal pulmonary vascular con gestion. His ABG while patient on BiPAP revealed pH of 7.39, PCO2 of 41 and PO2 of 83. 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 Past Medical History Past Medical History (Chronic Problems): Chronic Problems (Last Updated 06/14/18 @ 18:29 by Barbara Mendoza MD) Cancer of upper lobe of left lung (Chronic) Iron deficiency anemia due to chronic blood loss (Chronic) Gastric AVMs, September 2017 GI bleed (Chronic) tsferred to [facility], transfused with 2 units PRBC's. Chronic atrial fibrillation (Chronic) angiolasty and stenting to BLE iliac arteries (Chronic 08/04/12) History of cardioversion (Chronic 12/2016) Secondary pulmonary arterial hypertension (Chronic) Atherosclerosis of coronary artery of ute heart without angina pectoris (Chronic) CABG x 2 HERRERA-LAD, SVG-OM 02/14/2006 [id number] anastomosis-LAD w/ Taxus 2.75 x 8 mm and POBA-PDA 12/23/2006 H/O coronary artery bypass surgery (Chronic 02/14/06) CABG x 2 HERRERA-LAD, SVG-OM 02/14/[address] Fei Castillo, [facility] 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 (Chronic) Alcohol dependence (Chronic) GERD (gastroesophageal reflux disease) (Chronic) Essential tremor (Chronic) Parkinsons (Chronic) Dementia (Chronic) HEBER (obstructive sleep apnea) (Chronic) Benign essential hypertension (Chronic) Medical History: Medical History (Last Updated 06/14/18 @ 18:29 by Barbara Mendoza MD) GI bleed (Chronic) K92.2 tsferred to [facility], transfused with 2 units PRBC's. Chronic atrial fibrillation (Chronic) I48.2 Secondary pulmonary arterial hypertension (Chronic) I27.21 Atherosclerosis of coronary artery of ute heart without angina pectoris (Chronic) I25.10 CABG x 2 HERRERA-LAD, SVG-OM 02/14/2006 [id number] anastomosis-LAD w/ Taxus 2.75 x 8 mm and POBA-PDA 12/23/2006 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 (Chronic) C34.12 Alcohol dependence (Chronic) F10.20 GERD (gastroesophageal reflux disease) (Chronic) K21.9 Essential tremor (Chronic) G25.0 Parkinsons (Chronic) G20 Dementia (Chronic) F03.90 HEBER (obstructive sleep apnea) (Chronic) G47.33 Benign essential hypertension (Chronic) I10 Adenocarcinoma of lung, stage 1 C34.90 Gastric AVM Q27.33 Allergies No Known Allergies Allergy (Verified 06/14/18 15:39) Home Medications: Ambulatory Orders Medication Instructions Recorded Fenofibrate [Tricor] 145 mg PO LUNCH 05/06/13 Folic Acid 1 mg PO DAILY@1200 05/06/13 Tiotropium Kress [Spiriva 18 MCG] 1 puff INHALATION DAILY 05/06/13 Duloxetine HCl 60 mg PO QHS 12/04/16 Pramipexole Di-HCl [Mirapex] 0.5 mg PO TID 12/04/16 aspirin 81 mg tablet,delayed 81 mg PO DAILY 10/06/17 release docusate sodium 100 mg capsule 100 mg PO BID cap 10/20/17 gabapentin 600 mg tablet 1,200 mg PO QHS tab 10/20/17 Formoterol Fumarate [Perforomist] 20 mcg INHALATION BID 12/22/17 Multivit-Min/Iron Fum/Folic AC 1 ea PO BID 12/22/17 [[id number]-Ybqmpby-[id number] Tablet] Omeprazole 20 mg PO DAILY@1700 12/22/17 Digoxin 0.25 mg PO DAILY 01/27/18 furosemide 20 mg tablet 20 mg PO QODAY 02/25/18 furosemide 40 mg tablet 40 mg PO QODAY tab 02/25/18 rivaroxaban 10 mg tablet 10 mg PO DAILY 02/25/18 losartan 25 mg tablet 25 mg PO DAILY 03/02/18 Metoprolol Tartrate 25 mg PO QHS 03/19/18 Potassium Chloride [K-Tab ER] 10 meq PO DAILY 03/19/18 Pravastatin Sodium 40 mg PO QHS 03/19/18 Senna [Senokot] 1 tablet PO DINNER 03/19/18 Cholecalciferol (Vitamin D3) 5,000 unit PO DAILY 06/14/18 [Vitamin D3] Surgical History: Surgical History (Last Updated 06/14/18 @ 18:30 by Barbara Mendoza MD) angiolasty and stenting to BLE iliac arteries (Chronic) Onset Date: 08/04/12 History of cardioversion (Chronic) Onset Date: 12/2016 Z98.890 H/O coronary artery bypass surgery (Chronic) Onset Date: 02/14/06 Z95.1 CABG x 2 HERRERA-LAD, SVG-OM 02/14/[address] Fei Castillo, [facility] Surgical History: coronary bypass surgery Psychiatric History: No pertinent psych hx Lives: Spouse/ Significant Other Smoking Status: Former smoker Alcohol: None Drugs: None - *Family History Maternal Family History: Family History (Last Reviewed 05/15/18 @ 13:39 by Titi Moore DO) Sister Alcoholism Cancer Mother Arthritis Father Arthritis Brother Cancer History Items: No pertinent history Paternal Family History: Family History (Last Reviewed 05/15/18 @ 13:39 by Titi Moore DO) Sister Alcoholism Cancer Mother Arthritis Father Arthritis Brother Cancer History Items: No pertinent history Review of Systems Constitutional: Reports: Fever - Subjective fever.. Denies: Anorexia, Chills, Weakness Eyes: Denies: Blurred vision, Double vision, Drainage, Eyelid Inflammation, Redness HEENT: Denies: Difficulty Hearing, Ear Pain, Eye Pain, Nasal Congestion, Sore Throat Cardiovascular: Reports: Orthopnea. Denies: Chest Pain, Chest Pressure, Chest Tightness, Heaviness, Light Headedness, Paroxysmal Noc. Dyspnea, Syncope Respiratory: Reports: Cough, Shortness of breath at rest, Sputum production. Denies: Pleuritic Pain, Wheezing Gastrointestinal: Denies: Abdominal Pain, Constipation, Diarrhea, Nausea, Vomiting Genitourinary: Denies: Dysuria, Frequency, Hematuria Musculoskeletal: Denies: Arm Pain, Back Pain, Foot Pain Skin: Denies: Dryness, Rash Neurological: Denies: Balance problems, Double vision, Change in Speech, Slurred speech, Confusion, Focal weakness, Incoordination Psychiatric: Denies: Anxiety, Depression Endocrine: Denies: Change in Body Habitus, Polydipsia VTE Information - Inpt Only VTE Present on Admission: No VTE Mechan Device Prophylaxis: None VTE Pharm Prophylaxis ordered?: No - Physical Exam General: Alert, Oriented x3, Cooperative, - - Moderately short of breath, on BiPAP. HEENT: Atraumatic, PERRLA, EOMI, Normocephalic Oral: Moist Mucosa, No Gingival or Mucosal Lesions/ Ulcerations Neck: Supple, No JVD, Negative Carotid Bruits, Trachea Midline, Thyroid Normal Size and Texture Lungs: No wheeze, Rales, Rhonchi, Short of Breath, Tachypneic, - - Decreased breath sounds bilateral, more at the bases with bilateral rhonchi and basilar crackles. Cardiovascular: Normal S1, Normal S2, No murmurs, PMI Normal, Irregular Rate, Tachycardic Abdomen: Bowel Sounds Present, Soft, Non Tender, Non-Distended, No Hepato- splenomegaly, Obese Extremities: No clubbing, No cyanosis, No edema Skin: No rashes, No breakdown Lymphatic: No Cervical, Supraclavicular, or Inguinal Adenopathy Neurological: Cranial nerves II-XII grossly intact, Motor Exam 5/5 strength throughout Psych/Mental Status: Normal Affect, Appropriate, Alert and oriented to time, place, person, mood and affect Vital Signs Temp Pulse Resp BP Pulse Ox 98.6 F 98 22 H 160/114 H 100 06/14/18 18:05 06/14/18 18:05 06/14/18 18:05 06/14/18 18:05 06/14/18 18:05 Oxygen Flow Rate (L/min) 15 Oxygen Delivery Method Bi-pap Weight: 250 lb 7.122 oz Body Mass Index (BMI) 35.9 Laboratory Tests Past 24 Hrs 06/14/18 06/14/18 06/14/18 16:10 16:10 16:10 WBC 10.0 RBC 4.20 L Hgb 11.2 L Hct 35.6 L MCV 84.8 MCH 26.7 L MCHC 30.7 L RDW 18.7 H RDW Differential 58.0 H Plt Count 207 MPV 10.0 Immature Gran % (Auto) 0.300 Neut % (Auto) 84.6 H Lymph % (Auto) 5.6 L [place] % (Auto) 8.5 Eos % (Auto) 0.4 Baso % (Auto) 0.2 Absolute Neuts (auto) 8.1 H Absolute Lymphs (auto) 0.58 L Total Counted Not Reportable Differential Comment SCANNED Specimen Type Sample Site pH Bicarbonate Actual POC Total CO2 Base Excess O2 Saturation O2 % ABG pCO2 ABG pO2 John Test Respiration Rate O2 Delivery Device EPAP IPAP Blood Gas Notified Whom Blood Gas Notified Time Sodium 137 Potassium 3.8 Chloride 104 Carbon Dioxide 25.0 Anion Gap 8 BUN 8 Creatinine 1.03 Estim Creat Clear Calc 66.94 Est GFR (MDRD) Af Amer 91 Est GFR (MDRD) Non-Af 75 BUN/Creatinine Ratio 7.8 L Glucose 131 H Lactic Acid 1.4 Calcium 8.0 L Total Bilirubin 0.60 AST 40 H ALT 27 Alkaline Phosphatase 89 Troponin I 0.057 H Total Protein 6.9 Albumin 3.2 Globulin 3.7 Albumin/Globulin Ratio 0.9 06/14/18 16:35 WBC RBC Hgb Hct MCV MCH MCHC RDW RDW Differential Plt Count MPV Immature Gran % (Auto) Neut % (Auto) Lymph % (Auto) [place] % (Auto) Eos % (Auto) Baso % (Auto) Absolute Neuts (auto) Absolute Lymphs (auto) Total Counted Differential Comment Specimen Type ART Sample Site R Radial pH 7.39 Bicarbonate Actual 25.1 POC Total CO2 26 Base Excess 0 O2 Saturation 96 O2 % 35 ABG pCO2 41.1 ABG pO2 83 John Test POS Respiration Rate 12 O2 Delivery Device Bi / C PAP EPAP 6 IPAP 12 Blood Gas Notified Whom ED Blood Gas Notified Time 1632 Sodium Potassium Chloride Carbon Dioxide Anion Gap BUN Creatinine Estim Creat Clear Calc Est GFR (MDRD) Af Amer Est GFR (MDRD) Non-Af BUN/Creatinine Ratio Glucose Lactic Acid Calcium Total Bilirubin AST ALT Alkaline Phosphatase Troponin I Total Protein Albumin Globulin Albumin/Globulin Ratio Clinical Impression(s) from Imaging Studies Chest X-Ray 06/14/18 15:53 IMPRESSION: 1. Developing infiltrate or atelectasis of the medial right lower lobe. 2. Mild cardiomegaly, CABG. 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 Patient is afebrile, no leukocytosis, lactic acid is normal. Blood culture sent. Plan: Admit to PCU, cardiac monitoring, sputum culture, pneumococcal and Legionella antigen, respiratory panel for viruses, bronchodilators, start empiric IV Zosyn and vancomycin, incentive spirometer, continue BiPAP, repeat CBC and BMP tomorrow morning, chest physiotherapy, PT OT evaluation and treatment. #2 acute on chronic hypoxic respiratory failure: Secondary to above in addition to probable acute on chronic CHF. Patient has been on oxygen at home mainly at night at 3 L in addition to CPAP on sleep. ABG reviewed as above but that was on BiPAP. No carbon dioxide retention. Plan: IV antibiotics, bronchodilators, IV diuretics, continue BiPAP. 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 Patient does have a history of chronic systolic CHF, 2D echocardiogram from November, revealed ejection fraction of 45%, severely dilated left ventricle RVSP of 60 consistent with moderate pulmonary hypertension. He had a stress echocardiogram on November, that revealed ejection fraction of 60%. Troponin is borderline elevated. EKG revealed A. fib, rate has been around 100, no acute ischemic changes. Plan: Stat BMP, 2D echocardiogram, IV Lasix, continue metoprolol and losartan as well as digoxin. #4 CAD status post CABG and stents: Plan as above, EKG reviewed, no acute changes, troponin slightly elevated. Plan for serial cardiac enzymes, 2D echocardiogram as above, continue aspirin, metoprolol, losartan and statins. #5 chronic atrial fibrillation: Rate has been around 100, blood pressure slightly elevated. Continue digoxin and metoprolol for rate control, continue Xarelto for anticoagulation. #6 hypertension: Blood pressure slightly elevated, continue losartan and metoprolol, start IV Lasix as above. #7 chronic anemia/history of GI bleed: Hemoglobin and hematocrit are stable, no evidence of active bleeding. Plan to repeat CBC tomorrow morning. #8 COPD/chronic respiratory failure: Patient has been on oxygen mainly at night and CPAP on sleep. Plan for bronchodilators, incentive spirometer, IV diuresis. #9 hyperlipidemia: Continue statins. #10 DVT prophylaxis: Continue Xarelto. This note was generated with [employer] software. It may contain incorrect words, spelling, and punctuation that were not noted in checking the note before signing. Code Visit Inpatient E&M: 06240 Init Hosp L3
--- NOTE | 2018-06-14 18:56 | ECHOD_ITS ---
Reason For Study: Dyspenea/SOB Procedure This was a 2D Doppler, Color Flow transthoracic echocardiogram. Techncially difficult study, unable to utilize Definity due to increased pressures. The study was technically difficult. Exam performed portable in patient room. Left Ventricle Normal LV size. D shaped septum in systole and diastole. Mild global left ventricular systolic dysfunction. The estimated ejection fraction is 45 %. Septal motion consistent with IVCD. Unable to assess diastolic dysfunction. Right Ventricle Moderately dilated right ventricle. Moderate global right ventricular systolic dysfunction. Atria The left atrium is moderately enlarged. The right atrium is severely enlarged. No doppler evidence for ASD. Mitral Valve There is no mitral annular calcification. Normal mitral valve. Mild (1+) mitral valve insufficiency. Tricuspid Valve Normal tricuspid valve. Moderate (2+) eccentric tricuspid valve insufficiency. Right ventricular systolic pressure estimated to be 84 mmHg. Aortic Valve Trisinus/trileaflet aortic valve. Mild focal aortic valve thickening. Pulmonic Valve Normal pulmonic valve. Mild (1+) pulmonic valve insufficiency. Great Vessels Normal sized aortic root. Pericardium/Pleural No pericardial effusion. MMode/2D Measurements & Calculations LVIDd: 4.4 cm IVSd: 1.8 cm Ao root diam: 3.3 cm LVIDs: 3.9 cm LVPWd: 1.2 cm LA dimension: 4.9 cm RVDd: 4.8 cm FS: 11.0 % LAV(MOD-sp2): 81.3 ml LVAd ap4: 27.9 cm2 LA A4 area: 28.3 cm2 EDV(MOD-sp4): 98.3 ml EDV(sp4-el): 101.7 ml RA A4 area: 32.3 cm2 Doppler Measurements & Calculations MV E max sanjuana: 95.6 cm/sec Ao V2 max: 158.8 cm/sec LV V1 max: 103.2 cm/sec Ao max P.2 mmHg LV V1 max P.3 mmHg PA V2 max: 82.5 cm/sec TR max sanjuana: 435.6 cm/sec TR max P.1 mmHg Interpretation Summary The study was technically difficult. Mild global left ventricular systolic dysfunction. The estimated ejection fraction is 45 %. D shaped septum in systole and diastole. Septal motion consistent with IVCD. Moderately dilated right ventricle. Moderate global right ventricular systolic dysfunction. The left atrium is moderately enlarged. The right atrium is severely enlarged. Mild (1+) mitral valve insufficiency. Moderate (2+) eccentric tricuspid valve insufficiency. Mild focal aortic valve thickening. Mild (1+) pulmonic valve insufficiency. Right ventricular systolic pressure estimated to be 84 mmHg with severe pulmonary hypertension. Unable to assess diastolic dysfunction. Ordering Physician: Barbara Mendoza Referring Physician: Fany Hobson D.O. Performed By: Jj Munoz RCS
[2018-06-14 20:01] LABS: BNP,B-Type NATRIURETIC PEPTIDE 263.7 pg/mL (0-100)
[2018-06-14 20:48] LABS: Color, Urine Yellow (Yellow); Glucose, Dipstick Normal (Normal); Ketone-Dipstick Negative (Negative); Leukocyte Esterase-Dipstick Negative /ul (Negative); Nitrite-Dipstick Negative (Negative); Occult Blood-Urine 50 /ul (Negative); Protein-Dipstick 100 mg/dl (Negative); Specific Gravity, Urine 1.015 (1.002-1.030); Urine Bilirubin Dipstick Negative (Negative); Urine Clarity Clear (Clear); Urine Urobilinogen 1 mg/dl (Normal)
[2018-06-14] MEDS: Piperacil/Tazobactam 3.375 GM/50 ML ML IV (21:15)
[2018-06-14] MEDS: Metoprolol Tartrate 25 MG Tablet PO (21:17)
[2018-06-14] MEDS: Docusate Sodium 100 MG Capsule PO (21:17)
[2018-06-14] MEDS: Pravastatin 40 MG Tablet PO (21:18)
[2018-06-14] MEDS: guaiFENesin 1,200 MG Tablet 1200 MG PO (21:18)
[2018-06-14] MEDS: Pramipexole Di-HCl 0.5 MG Tablet PO (21:18)
[2018-06-14] MEDS: Gabapentin 600 MG Tablet 1200 MG PO (21:18)
[2018-06-14] MEDS: DULoxetine Hcl 60 MG Capsule PO (21:19)
--- NOTE | 2018-06-14 21:33 | PCM.RX.CS ---
Consult Pharmacy has been consulted to manage selected antiobiotic: Vancomycin Type of Consult: New start Suspected Infection: Pneumonia Prior Doses of Antibiotics Received/Current Regimen: Medications Vancomycin HCl (Vancomycin) 1,000 mg in 200 mls @ 200 mls/hr IV Q12H NATALIE Vancomycin HCl 2,000 mg/ (Sodium Chloride) 540 mls @ 250 mls/hr IV X1 ONE Stop: 06/14/18 21:39 Last Admin: 06/14/18 21:15 Dose: 250 mls/hr Labs: Sodium 137 mmol/L (136-145) 06/14/18 16:10 Potassium 3.8 mmol/L (3.5-5.1) 06/14/18 16:10 Chloride 104 mmol/L (98-107) 06/14/18 16:10 Carbon Dioxide 25.0 mmol/L (21.0-32.0) 06/14/18 16:10 Anion Gap 8 (5-15) 06/14/18 16:10 BUN 8 mg/dL (7-18) 06/14/18 16:10 Creatinine 1.03 mg/dL (0.70-1.30) 06/14/18 16:10 Est GFR (MDRD) Af Amer 91 mL/min (>60) 06/14/18 16:10 Est GFR (MDRD) Non-Af 75 mL/min (>60) 06/14/18 16:10 BUN/Creatinine Ratio 7.8 RATIO (10-20) L 06/14/18 16:10 Glucose 131 mg/dL (74-106) H 06/14/18 16:10 Microbiology: Microbiology 06/14/18 20:25 Urine, Clean Catch Streptococcus pneumoniae Antigen (M - Final 06/14/18 20:25 Urine, Clean Catch Legionella Antigen - Final Weight used for dosin.8 kg Estimated Creatinine Clearance: 67 Goal Trough: 10-15 mcg/mL Pharmacy Plan for Drug Dosing: Pharmacy Service will continue to monitor and adjust dosing as required. Follow-Up Labs: Trough Vancomycin Labs to be done on [date and time ordered]: 06/16/18 @0830
[2018-06-14 22:23] LABS: Probe Check PASS; Staph aureus DNA By PCR POSITIVE (Negative)
[2018-06-14 22:24] LABS: M R Staph aureus DNA By PCR POSITIVE (Negative)
--- NOTE | 2018-06-14 22:30 | NURSING ---
Pts primary rn aware of wound swab being positive for mrsa at this time.
[2018-06-15] VITALS (36 sets, daily range): BP systolic 110–261; BP diastolic 53–145; PULSE 64–131; RESP 12–38; TEMP 36.3–37.2; O2SAT 4–99
[2018-06-15] MEDS: Ipratropium/Albuterol Sulfate 3 ML AMPUL.NEB INHALATION ×4 (01:06→19:39)
--- NOTE | 2018-06-15 05:55 | EKG12_ITS ---
Test Reason : AM EKG Blood Pressure : / mmHG Vent. Rate : 076 BPM Atrial Rate : 079 BPM P-R Int : 000 ms QRS Dur : 086 ms QT Int : 364 ms P-R-T Axes : 000 -41 -21 degrees QTc Int : 409 ms Atrial fibrillation Left axis deviation Nonspecific ST and T wave abnormality Abnormal ECG Confirmed by CORTEZ CLEARY, ROGELIO ([id number]), editor publications ALEXIS RO ([id number]) on 06/17/2018 3:02:25 PM Referred By: JOHANNA Confirmed By:ROGELIO TORO MD
[2018-06-15 06:50] LABS: Absolute Lymphocyte Count 0.47 X10^3/ul (0.83-4.51); Basophil# 0.02 X10^3/uL; Basophil% 0.2 % (0-1); Hematocrit 36.6 % (40-54); Lymphocyte # 0.47 X10^3/ul (4.0); Lymphocyte % 5.7 % (19-41); Mean Corp Hgb Conc 30.1 g/gl (32-36); Mean Corpuscular Hgb 26.1 pg (27.0-32.0); Mean Corpuscular Volume 86.7 fL (80-94); Mean Platelet Vol. 10.2 fl (6.2-12.0); Monocyte% 8.5 % (0-10); Neutrophil # 7.01 X10^3/uL (2.7-7.7); Neutrophil % 85.4 % (47-70); Platelet Count 221 K/mm3 (150-450); RBC Distribution Width CV 19.1 % (11.6-14.6); RBC Distribution Width SD 59.8 fl (35.1-43.9); Red Blood Count 4.22 M/mm3 (4.6-6.2); White Blood Count 8.2 K/mm3 (4.4-11.0)
[2018-06-15] MEDS: Pramipexole Di-HCl 0.5 MG Tablet PO ×3 (06:55→23:39)
[2018-06-15] MEDS: Piperacil/Tazobactam 3.375 GM/50 ML ML IV (06:55)
[2018-06-15] MEDS: Metoprolol Tartrate 5 MG/5 ML Vial IV ×2 (06:55→11:57)
[2018-06-15 06:57] LABS: Anion Gap 9 (5-15); BUN 8 mg/dL (7-18); Calcium,Total 8.2 mg/dL (8.5-10.1); Chloride 104 mmol/L (98-107); Creatinine, Serum 1.14 mg/dL (0.70-1.30); EST Glomerular Filtration Rate 67 mL/min (>60); Est Glom Filt Rate - Afr Amer 81 mL/min (>60); Estimated Creatinine Clearance 60.48 ml/min; Glucose 149 mg/dL (74-106); Potassium 4.2 mmol/L (3.5-5.1); Sodium Level 141 mmol/L (136-145)
[2018-06-15 07:17] LABS: Differential Indicated SCAN CRITERIA MET; POSITIVE COUNT NO; POSITIVE DIFFERENTIAL YES; POSITIVE MORPHOLOGY NO
[2018-06-15] MEDS: Aspirin E.C. 81 MG Tablet PO (08:31)
[2018-06-15] MEDS: Losartan Potassium 25 MG Tablet PO ×2 (08:31→11:57)
[2018-06-15] MEDS: Digoxin 250 MCG Tablet PO (08:32)
[2018-06-15] MEDS: Rivaroxaban 10 MG Tablet PO (08:32)
[2018-06-15] MEDS: guaiFENesin 1,200 MG Tablet 1200 MG PO ×2 (08:32→23:39)
[2018-06-15] MEDS: Furosemide 40 MG/4 ML Vial IV ×2 (08:32→17:26)
--- NOTE | 2018-06-15 09:47 | CPS ---
Pt. taken off BiPAP as requested @ 7:00. Went till 7:55 before being placed back on with good comfort and tolerance. When off BiPaP, was placed on 4L NC with saturations in mid 90s. Duoderm was applied to upper bridge of nose due to skin redness from BiPAP mask.
[2018-06-15] MEDS: Vancomycin IV 1,000 MG/200 ML BAG 200 MG IV (10:13)
--- NOTE | 2018-06-15 10:29 | PCM.PN.HOSP ---
Subjective: Patient was admitted with a complaint of shortness of breath of 2 days duration with assisted cough productive of yellowish sputum. He admitted to subjective fever but could not tell the temperature. Chest x-ray done showed questionable right base infiltrate. 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 Patient seen and examined. He still states he is short of breath but is better than before. He still has a cough which is productive of scanty yellow sputum. Denied any fever chills, any chest pain, and palpitations, abdominal pain, any diarrhea vomiting. Review of systems otherwise negative. Labs and vitals reviewed. Vitals/I&O's: Vital Signs Temp Pulse Resp BP Pulse Ox 98.1 F 87 16 169/78 H 94 06/15/18 10:17 06/15/18 10:17 06/15/18 10:17 06/15/18 10:17 06/15/18 10:17 Oxygen Flow Rate (L/min) 4 Oxygen Delivery Method Nasal Cannula Weight: 286 lb 1 oz Body Mass Index (BMI) 41.0 Intake and Output for Last 24 Hours 06/13/18 06/14/18 06/15/18 23:59 23:59 23:59 Intake Total 1220.4 / 1220.4 Output Total 1400 / 1400 Balance -179.6 / -179.6 General: Alert, Oriented x3, Cooperative, No apparent distress HEENT: Atraumatic, PERRLA, EOMI, Normocephalic Oral: Dry Mucosa Neck: Supple, No JVD, Negative Carotid Bruits Lungs: - - reduced breath sounds bibasally, with mild wheezing in lower lung shah Cardiovascular: Regular rate, Regular Rhythm, Normal S1, Normal S2, No murmurs Abdomen: Bowel Sounds Present, Soft, Non Tender, Non-Distended, No Hepato-splenomegaly Extremities: No clubbing, No cyanosis, No edema, Capillary Refill Less than 3 Seconds Skin: No rashes, No breakdown, Ulcer/ Wound Musculoskeletal: No Tenderness to Palpation of Joints or Extremities Lymphatic: No Cervical, Supraclavicular, or Inguinal Adenopathy Neurological: Cranial nerves II-XII grossly intact, Neuro grossly intact, Motor Exam 5/5 strength throughout Psych/Mental Status: Normal Affect, Appropriate, Alert and oriented to time, place, person, mood and affect Microbiology Past 72 Hours 06/14/18 20:55 Mucosa - Nasopharyngeal Respiratory Panel (PCR) - Final RSV B 06/14/18 20:25 Urine, Clean Catch Streptococcus pneumoniae Antigen (M - Final 06/14/18 20:25 Urine, Clean Catch Legionella Antigen - Final Laboratory Results 06/14/18 16:10: WBC 10.0, RBC 4.20 L, Hgb 11.2 L, Hct 35.6 L, MCV 84.8, MCH 26.7 L, MCHC 30.7 L, RDW 18.7 H, RDW Differential 58.0 H, Plt Count 207, MPV 10.0, Immature Gran % (Auto) 0.300, Neut % (Auto) 84.6 H, Lymph % (Auto) 5.6 L, [place] % (Auto) 8.5, Eos % (Auto) 0.4, Baso % (Auto) 0.2, Absolute Neuts (auto) 8.1 H, Absolute Lymphs (auto) 0.58 L, Total Counted Not Reportable, Differential Comment SCANNED 06/14/18 16:10: Sodium 137, Potassium 3.8, Chloride 104, Carbon Dioxide 25.0, Anion Gap 8, BUN 8, Creatinine 1.03, Estim Creat Clear Calc 66.94, Est GFR (MDRD) Af Amer 91, Est GFR (MDRD) Non-Af 75, BUN/Creatinine Ratio 7.8 L, Glucose 131 H, Calcium 8.0 L, Total Bilirubin 0.60, AST 40 H, ALT 27, Alkaline Phosphatase 89, Troponin I 0.057 H, Total Protein 6.9, Albumin 3.2, Globulin 3.7, Albumin/Globulin Ratio 0.9 06/14/18 16:10: Lactic Acid 1.4 06/14/18 16:10: B-Natriuretic Peptide 263.7 H 06/14/18 16:35: Specimen Type ART, Sample Site R Radial, pH 7.39, Bicarbonate Actual 25.1, POC Total CO2 26, Base Excess 0, O2 Saturation 96, O2 % 35, ABG pCO2 41.1, ABG pO2 83, John Test POS, Respiration Rate 12, O2 Delivery Device Bi / C PAP, EPAP 6, IPAP 12, Blood Gas Notified Whom ED , Blood Gas Notified Time 1632 06/14/18 20:25: Urine Color Yellow, Urine Clarity Clear, Urine pH 6.0, Ur Specific [place] 1.015, Urine Protein 100 H, Urine Glucose (UA) Normal, Urine Ketones Negative, Urine Occult Blood 50 H, Urine Nitrite Negative, Urine Bilirubin Negative, Urine Urobilinogen 1 H, Ur Leukocyte Esterase Negative 06/14/18 20:25: S.aureus Protein A PCR POSITIVE H, MRSA (PCR) POSITIVE H 06/14/18 20:50: Troponin I 0.073 H 06/15/18 05:55: WBC 8.2, RBC 4.22 L, Hgb 11.0 L, Hct 36.6 L, MCV 86.7, MCH 26.1 L, MCHC 30.1 L, RDW 19.1 H, RDW Differential 59.8 H, Plt Count 221, MPV 10.2, Immature Gran % (Auto) 0.200, Neut % (Auto) 85.4 H, Lymph % (Auto) 5.7 L, [place] % (Auto) 8.5, Eos % (Auto) 0.0, Baso % (Auto) 0.2, Absolute Neuts (auto) 7.0, Absolute Lymphs (auto) 0.47 L, Total Counted Not Reportable, Differential Comment COMMENT 06/15/18 05:55: Sodium 141, Potassium 4.2, Chloride 104, Carbon Dioxide 28.0, Anion Gap 9, BUN 8, Creatinine 1.14, Estim Creat Clear Calc 60.48, Est GFR (MDRD) Af Amer 81, Est GFR (MDRD) Non-Af 67, BUN/Creatinine Ratio 7.0 L, Glucose 149 H, Calcium 8.2 L 06/15/18 23:55: Troponin I 0.070 H Diagnostic Data Chest X-Ray 06/14/18 15:53 IMPRESSION: 1. Developing infiltrate or atelectasis of the medial right lower lobe. 2. Mild cardiomegaly, CABG. Electronically Signed: Emerson Durant MD at 17:02 EST , Service support , Current Medications Acetaminophen (Tylenol) 650 mg PO Q4H PRN PRN PRN Reason: FEVER Albuterol Sulfate (Ventolin Aerosols) 2.5 mg INHALATION Q2H PRN PRN PRN Reason: SHORTNESS OF BREATH Last Admin: 06/14/18 20:38 Dose: 2.5 mg Albuterol/Ipratropium (Duoneb) 3 ml INHALATION Q6H.RT [facility] Last Admin: 06/15/18 06:40 Dose: 3 ml Aspirin (Ecotrin) 81 mg PO DAILYCM [facility] Last Admin: 06/15/18 08:31 Dose: 81 mg Digoxin (Lanoxin) 250 mcg PO DAILY [facility] Last Admin: 06/15/18 08:32 Dose: 250 mcg Docusate Sodium (Colace) 100 mg PO BID@1200,2200 [facility] Last Admin: 06/14/18 21:17 Dose: 100 mg Duloxetine HCl (Cymbalta) 60 mg PO QHS [facility] Last Admin: 06/14/18 21:19 Dose: 60 mg Fenofibrate (Tricor) 145 mg PO LUNCH [facility] Folic Acid (Folic Acid) 1 mg PO DAILY@1200 NATALIE Furosemide (Lasix) 40 mg IV BIDLX [facility] Last Admin: 06/15/18 08:32 Dose: 40 mg Gabapentin (Neurontin) 1,200 mg PO QHS [facility] Last Admin: 06/14/18 21:18 Dose: 1,200 mg Guaifenesin (Mucinex) 1,200 mg PO BID [facility] Last Admin: 06/15/18 08:32 Dose: 1,200 mg Heparin Sodium (Beef Lung) () 50 units IV UD PRN PRN Reason: HEPARIN FLUSH Piperacillin Sod/Tazobactam Sod (Zosyn) 3.375 gm in 50 mls @ 12.5 mls/hr IV Q8 [facility] Last Admin: 06/15/18 06:55 Dose: 12.5 mls/hr Vancomycin IV Pharmacy to Dose (1 ea/ Sodium Chloride) 500 mls @ 250 mls/hr IV PRN PRN; Protocol PRN Reason: Rx to Dose Vancomycin HCl (Vancomycin) 1,000 mg in 200 mls @ 200 mls/hr IV Q12H [facility] Last Admin: 06/15/18 10:13 Dose: 200 mls/hr Losartan Potassium (Cozaar) 25 mg PO DAILY [facility] Last Admin: 06/15/18 08:31 Dose: 25 mg Magnesium Hydroxide (Milk Of Magnesia) 30 ml PO DAILY PRN PRN Reason: Constipation Metoprolol Tartrate (Lopressor (Beta Taisha)) 25 mg PO QHS [facility] Last Admin: 06/14/18 21:17 Dose: 25 mg Nutritional Formula (Lactose Free) (Ensure Enlive) 120 ml PO 4X/DAY [facility] Last Admin: 06/15/18 08:31 Dose: 120 ml Ondansetron HCl (Zofran) 4 mg IV Q8H PRN PRN PRN Reason: NAUSEA Pantoprazole Sodium (Protonix) 20 mg PO DAILY@1700 NATALIE Potassium Chloride (K-Dur) 10 meq PO DAILYCM [facility] Last Admin: 06/15/18 08:31 Dose: 10 meq Pramipexole Dihydrochloride (Mirapex) 0.5 mg PO TID [facility] Last Admin: 06/15/18 06:55 Dose: 0.5 mg Pravastatin Sodium (Pravachol) 40 mg PO QHS [facility] Last Admin: 06/14/18 21:18 Dose: 40 mg Rivaroxaban (Xarelto) 10 mg PO DAILY [facility] Last Admin: 06/15/18 08:32 Dose: 10 mg Senna (Senokot) 1 tablet PO DINNER [facility] Sodium Chloride () 10 ml IV UD PRN PRN Reason: R PORT FLUSH Last Admin: 06/15/18 08:37 Dose: 10 ml Medical Necessity - Tobacco Use Smoking Status: Former smoker Assessment/Plan 1. Upper respiratory tract infection due to to RSV infection still short of breath but says it is getting better CXR showed questionable right base infiltrate no leucocytosis and has remained afebrile, making pneumonia less likely will dc IV vancomycin and IV zosyn he was started on for suspected health associtaed pneumonia continue breathing treatments 2. Acute on chronic hypoxic respiratory failure due to URTI was on 15L of oxygen by nasal canula on admission; now on oxygen 4L by nasal canula; baseline is ~ 2-3 L of oxygen on breathing treatments with duonebs 3. 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 CAD s/o CABG and stents: troponins were mildly elevated; 0.057->0.073->0.070 may be due to troponin leak from CHF exacerbation on aspirin, metoprolol, losartan and statins currently asymptomatic 5. Chronic atrial fibrillation: stable. On digoxin and metoprolol. On xarelto 6. Hypertension: on losartan and metoprolol. Blood pressure has been very poorly controlled and was elevated with SBP in the 200s systolic. patient says his BP is usually in 140s systolic at home; loasrtan and metoprolol doses titrated upwards, and patietn given PO clonidine and IV lopressor to bring BP and HR down 7. Chronic anemia with history of GI bleed: stable. 8. COPD: on oxygen at night and CPAP prn. On breathing treatments. Incentive spirometer 9. Hyperlipidemia: on statin 10. DVT prophylaxis: on xarelto for Afib Code Visit Inpatient E&M: [id number] [facility] Hosp L3
--- NOTE | 2018-06-15 10:53 | PN_ITS ---
Subjective: Patient was admitted with a complaint of shortness of breath of 2 days duration with assisted cough productive of yellowish sputum. He admitted to subjective fever but could not tell the temperature. Chest x-ray done showed questionable right base infiltrate. 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 Patient seen and examined. He still states he is short of breath but is better than before. He still has a cough which is productive of scanty yellow sputum. Denied any fever chills, any chest pain, and palpitations, abdominal pain, any diarrhea vomiting. Review of systems otherwise negative. Labs and vitals reviewed. Vitals/I&O's: Vital Signs Temp Pulse Resp BP Pulse Ox 98.1 F 87 16 169/78 H 94 06/15/18 10:17 06/15/18 10:17 06/15/18 10:17 06/15/18 10:17 06/15/18 10:17 Oxygen Flow Rate (L/min) 4 Oxygen Delivery Method Nasal Cannula Weight: 286 lb 1 oz Body Mass Index (BMI) 41.0 Intake and Output for Last 24 Hours 06/13/18 06/14/18 06/15/18 23:59 23:59 23:59 Intake Total 1220.4 / 1220.4 Output Total 1400 / 1400 Balance -179.6 / -179.6 General: Alert, Oriented x3, Cooperative, No apparent distress HEENT: Atraumatic, PERRLA, EOMI, Normocephalic Oral: Dry Mucosa Neck: Supple, No JVD, Negative Carotid Bruits Lungs: - - reduced breath sounds bibasally, with mild wheezing in lower lung shah Cardiovascular: Regular rate, Regular Rhythm, Normal S1, Normal S2, No murmurs Abdomen: Bowel Sounds Present, Soft, Non Tender, Non-Distended, No Hepato- splenomegaly Extremities: No clubbing, No cyanosis, No edema, Capillary Refill Less than 3 Seconds Skin: No rashes, No breakdown, Ulcer/ Wound Musculoskeletal: No Tenderness to Palpation of Joints or Extremities Lymphatic: No Cervical, Supraclavicular, or Inguinal Adenopathy Neurological: Cranial nerves II-XII grossly intact, Neuro grossly intact, Motor Exam 5/5 strength throughout Psych/Mental Status: Normal Affect, Appropriate, Alert and oriented to time, place, person, mood and affect Microbiology Past 72 Hours 06/14/18 20:55 Mucosa - Nasopharyngeal Respiratory Panel (PCR) - Final RSV B 06/14/18 20:25 Urine, Clean Catch Streptococcus pneumoniae Antigen (M - Final 06/14/18 20:25 Urine, Clean Catch Legionella Antigen - Final Laboratory Results 06/14/18 16:10: WBC 10.0, RBC 4.20 L, Hgb 11.2 L, Hct 35.6 L, MCV 84.8, MCH 26.7 L, MCHC 30.7 L, RDW 18.7 H, RDW Differential 58.0 H, Plt Count 207, MPV 10.0, Immature Gran % (Auto) 0.300, Neut % (Auto) 84.6 H, Lymph % (Auto) 5.6 L, [place] % (Auto) 8.5, Eos % (Auto) 0.4, Baso % (Auto) 0.2, Absolute Neuts (auto) 8.1 H, Absolute Lymphs (auto) 0.58 L, Total Counted Not Reportable, Differential Comment SCANNED 06/14/18 16:10: Sodium 137, Potassium 3.8, Chloride 104, Carbon Dioxide 25.0, Anion Gap 8, BUN 8, Creatinine 1.03, Estim Creat Clear Calc 66.94, Est GFR ( MDRD) Af Amer 91, Est GFR (MDRD) Non-Af 75, BUN/Creatinine Ratio 7.8 L, Glucose 131 H, Calcium 8.0 L, Total Bilirubin 0.60, AST 40 H, ALT 27, Alkaline Phosphatase 89, Troponin I 0.057 H, Total Protein 6.9, Albumin 3.2, Globulin 3.7, Albumin/Globulin Ratio 0.9 06/14/18 16:10: Lactic Acid 1.4 06/14/18 16:10: B-Natriuretic Peptide 263.7 H 06/14/18 16:35: Specimen Type ART, Sample Site R Radial, pH 7.39, Bicarbonate Actual 25.1, POC Total CO2 26, Base Excess 0, O2 Saturation 96, O2 % 35, ABG pCO2 41.1, ABG pO2 83, John Test POS, Respiration Rate 12, O2 Delivery Device Bi / C PAP, EPAP 6, IPAP 12, Blood Gas Notified Whom ED , Blood Gas Notified Time 1632 06/14/18 20:25: Urine Color Yellow, Urine Clarity Clear, Urine pH 6.0, Ur Specific [place] 1.015, Urine Protein 100 H, Urine Glucose (UA) Normal, Urine Ketones Negative, Urine Occult Blood 50 H, Urine Nitrite Negative, Urine Bilirubin Negative, Urine Urobilinogen 1 H, Ur Leukocyte Esterase Negative 06/14/18 20:25: S.aureus Protein A PCR POSITIVE H, MRSA (PCR) POSITIVE H 06/14/18 20:50: Troponin I 0.073 H 06/15/18 05:55: WBC 8.2, RBC 4.22 L, Hgb 11.0 L, Hct 36.6 L, MCV 86.7, MCH 26.1 L, MCHC 30.1 L, RDW 19.1 H, RDW Differential 59.8 H, Plt Count 221, MPV 10.2, Immature Gran % (Auto) 0.200, Neut % (Auto) 85.4 H, Lymph % (Auto) 5.7 L, [place] % (Auto) 8.5, Eos % (Auto) 0.0, Baso % (Auto) 0.2, Absolute Neuts (auto) 7.0, Absolute Lymphs (auto) 0.47 L, Total Counted Not Reportable, Differential Comment COMMENT 06/15/18 05:55: Sodium 141, Potassium 4.2, Chloride 104, Carbon Dioxide 28.0, Anion Gap 9, BUN 8, Creatinine 1.14, Estim Creat Clear Calc 60.48, Est GFR (MDRD) Af Amer 81, Est GFR (MDRD) Non-Af 67, BUN/Creatinine Ratio 7.0 L, Glucose 149 H, Calcium 8.2 L 06/15/18 23:55: Troponin I 0.070 H Diagnostic Data Chest X-Ray 06/14/18 15:53 IMPRESSION: 1. Developing infiltrate or atelectasis of the medial right lower lobe. 2. Mild cardiomegaly, CABG. Electronically Signed: Emerson Durant MD at 17:02 EST , Service support , Current Medications Acetaminophen (Tylenol) 650 mg PO Q4H PRN PRN PRN Reason: FEVER Albuterol Sulfate (Ventolin Aerosols) 2.5 mg INHALATION Q2H PRN PRN PRN Reason: SHORTNESS OF BREATH Last Admin: 06/14/18 20:38 Dose: 2.5 mg Albuterol/Ipratropium (Duoneb) 3 ml INHALATION Q6H.RT [facility] Last Admin: 06/15/18 06:40 Dose: 3 ml Aspirin (Ecotrin) 81 mg PO DAILYCM [facility] Last Admin: 06/15/18 08:31 Dose: 81 mg Digoxin (Lanoxin) 250 mcg PO DAILY [facility] Last Admin: 06/15/18 08:32 Dose: 250 mcg Docusate Sodium (Colace) 100 mg PO BID@1200,2200 [facility] Last Admin: 06/14/18 21:17 Dose: 100 mg Duloxetine HCl (Cymbalta) 60 mg PO QHS [facility] Last Admin: 06/14/18 21:19 Dose: 60 mg Fenofibrate (Tricor) 145 mg PO LUNCH [facility] Folic Acid (Folic Acid) 1 mg PO DAILY@1200 NATALIE Furosemide (Lasix) 40 mg IV BIDLX [facility] Last Admin: 06/15/18 08:32 Dose: 40 mg Gabapentin (Neurontin) 1,200 mg PO QHS [facility] Last Admin: 06/14/18 21:18 Dose: 1,200 mg Guaifenesin (Mucinex) 1,200 mg PO BID [facility] Last Admin: 06/15/18 08:32 Dose: 1,200 mg Heparin Sodium (Beef Lung) () 50 units IV UD PRN PRN Reason: HEPARIN FLUSH Piperacillin Sod/Tazobactam Sod (Zosyn) 3.375 gm in 50 mls @ 12.5 mls/hr IV Q8 [facility] Last Admin: 06/15/18 06:55 Dose: 12.5 mls/hr Vancomycin IV Pharmacy to Dose (1 ea/ Sodium Chloride) 500 mls @ 250 mls/hr IV PRN PRN; Protocol PRN Reason: Rx to Dose Vancomycin HCl (Vancomycin) 1,000 mg in 200 mls @ 200 mls/hr IV Q12H [facility] Last Admin: 06/15/18 10:13 Dose: 200 mls/hr Losartan Potassium (Cozaar) 25 mg PO DAILY [facility] Last Admin: 06/15/18 08:31 Dose: 25 mg Magnesium Hydroxide (Milk Of Magnesia) 30 ml PO DAILY PRN PRN Reason: Constipation Metoprolol Tartrate (Lopressor (Beta Taisha)) 25 mg PO QHS [facility] Last Admin: 06/14/18 21:17 Dose: 25 mg Nutritional Formula (Lactose Free) (Ensure Enlive) 120 ml PO 4X/DAY [facility] Last Admin: 06/15/18 08:31 Dose: 120 ml Ondansetron HCl (Zofran) 4 mg IV Q8H PRN PRN PRN Reason: NAUSEA Pantoprazole Sodium (Protonix) 20 mg PO DAILY@1700 [facility] Potassium Chloride (K-Dur) 10 meq PO DAILYCM [facility] Last Admin: 06/15/18 08:31 Dose: 10 meq Pramipexole Dihydrochloride (Mirapex) 0.5 mg PO TID [facility] Last Admin: 06/15/18 06:55 Dose: 0.5 mg Pravastatin Sodium (Pravachol) 40 mg PO QHS [facility] Last Admin: 06/14/18 21:18 Dose: 40 mg Rivaroxaban (Xarelto) 10 mg PO DAILY [facility] Last Admin: 06/15/18 08:32 Dose: 10 mg Senna (Senokot) 1 tablet PO DINNER [facility] Sodium Chloride () 10 ml IV UD PRN PRN Reason: R PORT FLUSH Last Admin: 06/15/18 08:37 Dose: 10 ml Medical Necessity - Tobacco Use Smoking Status: Former smoker Assessment/Plan 1. Upper respiratory tract infection due to to RSV infection * still short of breath but says it is getting better * CXR showed questionable right base infiltrate * no leucocytosis and has remained afebrile, making pneumonia less likely * will dc IV vancomycin and IV zosyn he was started on for suspected health associtaed pneumonia * continue breathing treatments * 2. Acute on chronic hypoxic respiratory failure due to URTI * was on 15L of oxygen by nasal canula on admission; * now on oxygen 4L by nasal canula; baseline is ~ 2-3 L of oxygen * on breathing treatments with duonebs 3. 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 CAD s/o CABG and stents: * troponins were mildly elevated; 0.057->0.073->0.070 * may be due to troponin leak from CHF exacerbation * on aspirin, metoprolol, losartan and statins * currently asymptomatic * 5. Chronic atrial fibrillation: stable. On digoxin and metoprolol. On xarelto 6. Hypertension: * on losartan and metoprolol. * Blood pressure has been very poorly controlled and was elevated with SBP in the 200s systolic. * patient says his BP is usually in 140s systolic at home; loasrtan and metoprolol doses titrated upwards, and patietn given PO clonidine and IV lopressor to bring BP and HR down 7. Chronic anemia with history of GI bleed: stable. 8. COPD: on oxygen at night and CPAP prn. On breathing treatments. Incentive spirometer 9. Hyperlipidemia: on statin 10. DVT prophylaxis: on xarelto for Afib Code Visit Inpatient E&M: [id number] [facility] Hosp L3
--- NOTE | 2018-06-15 11:03 | NURSING ---
this RN answering call light in room. RT in room with pt. pt appears very SOB. face is flushed. diaphoretic. Bipap placed on pt by RT. VS checked. BP 246/122. HR 125. made aware. new orders placed.
[2018-06-15] MEDS: Metoprolol Tartrate 25 MG Tablet PO (11:57)
[2018-06-15] MEDS: cloNIDine HCl 0.1 MG Tablet PO (11:57)
[2018-06-15] MEDS: Docusate Sodium 100 MG Capsule PO ×2 (11:57→23:39)
[2018-06-15] MEDS: Folic Acid 1 MG Tablet PO (11:57)
[2018-06-15] MEDS: Fenofibrate 145 MG Tablet PO (11:58)
--- NOTE | 2018-06-15 12:07 | CASEMGMT ---
[place] MARTINES assessment: Face to Face with patient for initial transition planning/care coordination assessment. RN BOBBI introduced self and role at [facility], pt voices understanding and consents to assessment at this time. Pt is sitting up in bed with bipap in place and some resp distress at this time. Pt is A/Ox4 at this time and answers questions appropriately at this time. Pt's is at bedside and answers questions for pt d/t bipap. Care providers, pharmacy, and demographics verified at this time. PCP: Joce Specialists: Jose, cardio; Martin pulm; Emely, podiatry; Jeannie, onc; Ryan, neuro Preferred Pharmacy: [facility] Insurance: [facility] A/B, Prescription Benefit: [employer] Living Will/HPOA: Pt does have LW/HPOA but they are not currently on file at [facility] at this time. Per , they had brought in previously but she states she can bring them in again to be copied. LNOK: Ellen Haney, ; Carmen Chand, daughter; Ginny, daughter Living Arrangements: Pt states lives with in 1 story home with 2 steps in with rails. Pt states dresses and bathes self but helps with all other ADL's. Transportation: Pt states drives and states no transportation concerns at this time. Pt states he does do some day driving. DME/HHC: Pt has the following DME: walker, w/c, hospital bed, raised toilet seat, grab bars, stair lift, scooter, HCP shower, bipap and home oxygen 3 liters at bedtime thru [employer]. CM to follow for continuous home oxygen. Pt states has had [facility] in the past was just discharged. CM to follow PT/OT. Pt states no hx of SNF in the past. Pt states no concerns with going home at time of discharge. Pt is retired. Pt states does not smoke but does drink ETOH. Pt states no further concerns/needs at this time. CM to follow for any further discharge planning/needs. Advised pt to ask for CM if any further questions/concerns/needs arise, voices understanding. Plan: Home, pending home oxygen testing and PT/OT evals. SStaten [place] MARTINES
[2018-06-15] MEDS: cloNIDine HCl 0.1 MG Tablet 0.2 MG PO ×2 (13:42→18:42)
--- NOTE | 2018-06-15 14:13 | CPS ---
Pt. was placed on home VPAP unit at 10:30. A 5 L bleed in was ran into home device with pulse ox in the mid 90s. Pt. says he feels comfortable and work of breathing was stable. At 13:15 pt. was seen by Doctor and placed on 4L NC. Doctor requested being put back on hospital BiPaP due to noted increase in WOB prior to visit. Pt. was placed back on hospital BiPAP with switched mask from medium to large with increased comfort.
[2018-06-15] MEDS: Pantoprazole Sodium 20 MG Tablet PO (17:26)
[2018-06-15] MEDS: Senna Tablet 1 TABLET PO (17:26)
[2018-06-15] MEDS: Metoprolol Tartrate 50 MG Tablet PO (18:41)
[2018-06-15] MEDS: amLODIPine 10 MG Tablet PO (18:41)
[2018-06-15] MEDS: Gabapentin 600 MG Tablet 1200 MG PO (23:39)
[2018-06-15] MEDS: DULoxetine Hcl 60 MG Capsule PO (23:39)
[2018-06-15] MEDS: Pravastatin 40 MG Tablet PO (23:39)
[2018-06-16] VITALS (22 sets, daily range): BP systolic 122–145; BP diastolic 66–89; PULSE 68–110; RESP 12–34; TEMP 36.4–36.9; O2SAT 95–99
[2018-06-16] MEDS: Ipratropium/Albuterol Sulfate 3 ML AMPUL.NEB INHALATION ×4 (01:19→20:41)
[2018-06-16] MEDS: Pramipexole Di-HCl 0.5 MG Tablet PO ×3 (05:52→21:30)
[2018-06-16 06:23] LABS: Absolute Lymphocyte Count 1.17 X10^3/ul (0.83-4.51); Basophil# 0.04 X10^3/uL; Basophil% 0.4 % (0-1); Eosinophil# 0.01 X10^3/uL; Eosinophils% 0.1 % (0-5); Hematocrit 36.7 % (40-54); Hemoglobin 10.9 g/dl (13.0-16.5); Lymphocyte # 1.17 X10^3/ul (4.0); Lymphocyte % 12.4 % (19-41); Mean Corp Hgb Conc 29.7 g/gl (32-36); Mean Corpuscular Hgb 25.7 pg (27.0-32.0); Mean Corpuscular Volume 86.6 fL (80-94); Mean Platelet Vol. 10.1 fl (6.2-12.0); Monocyte% 12.8 % (0-10); Neutrophil # 6.96 X10^3/uL (2.7-7.7); Neutrophil % 74.1 % (47-70); Platelet Count 224 K/mm3 (150-450); RBC Distribution Width CV 19.3 % (11.6-14.6); RBC Distribution Width SD 61.2 fl (35.1-43.9); Red Blood Count 4.24 M/mm3 (4.6-6.2); White Blood Count 9.4 K/mm3 (4.4-11.0)
[2018-06-16 06:52] LABS: Anion Gap 8 (5-15); BUN 17 mg/dL (7-18); BUN/Creat Ratio 15.2 RATIO (10-20); Calcium,Total 8.3 mg/dL (8.5-10.1); Chloride 104 mmol/L (98-107); Creatinine, Serum 1.12 mg/dL (0.70-1.30); EST Glomerular Filtration Rate 68 mL/min (>60); Est Glom Filt Rate - Afr Amer 83 mL/min (>60); Estimated Creatinine Clearance 61.56 ml/min; Glucose 112 mg/dL (74-106); Magnesium 2.2 mg/dL (1.6-2.6); Potassium 3.9 mmol/L (3.5-5.1); Sodium Level 143 mmol/L (136-145)
[2018-06-16 07:01] LABS: POSITIVE COUNT NO; POSITIVE DIFFERENTIAL NO; POSITIVE MORPHOLOGY NO
[2018-06-16] MEDS: Losartan Potassium 50 MG Tablet PO (09:25)
[2018-06-16] MEDS: guaiFENesin 1,200 MG Tablet 1200 MG PO ×2 (09:25→21:30)
[2018-06-16] MEDS: Aspirin E.C. 81 MG Tablet PO (09:25)
[2018-06-16] MEDS: Digoxin 250 MCG Tablet PO (09:25)
[2018-06-16] MEDS: Furosemide 40 MG/4 ML Vial IV ×2 (09:25→18:40)
[2018-06-16] MEDS: Rivaroxaban 10 MG Tablet PO (09:26)
[2018-06-16] MEDS: Docusate Sodium 100 MG Capsule PO ×2 (12:17→21:30)
[2018-06-16] MEDS: Fenofibrate 145 MG Tablet PO (12:17)
[2018-06-16] MEDS: Folic Acid 1 MG Tablet PO (12:17)
--- NOTE | 2018-06-16 12:17 | PCM.PN.HOSP ---
Subjective: Patient seen and examined. He feels better shortness of breath has improved. He still complains of productive cough. He is on 4 L of oxygen still. He denies any chest pain, palpitations, abdominal pain, diarrhea vomiting. Review of systems otherwise negative. Labs and vitals reviewed. Blood pressure was very elevated yesterday and was in the 200s systolic. Medications were adjusted and blood pressure control has improved significantly with blood pressure being down to the 120 systolic today. Vitals/I&O's: Vital Signs Temp Pulse Resp BP Pulse Ox 97.6 F L 82 20 H 122/89 H 98 06/16/18 09:32 06/16/18 10:59 06/16/18 09:32 06/16/18 09:32 06/16/18 09:32 Oxygen Flow Rate (L/min) 3 Oxygen Delivery Method Nasal Cannula Weight: 286 lb 2.56 oz Body Mass Index (BMI) 41.0 Intake and Output for Last 24 Hours 06/14/18 06/15/18 06/16/18 23:59 23:59 23:59 Intake Total 2470.4 / 2470.4 120 / 120 Output Total 3000 / 3000 Balance -529.6 / -529.6 120 / 120 General: Alert, Oriented x3, Cooperative, No apparent distress HEENT: Atraumatic, PERRLA, EOMI, Normocephalic Oral: Dry Mucosa Neck: Supple, No JVD, Negative Carotid Bruits Lungs: - - reduced breath sounds bibasally, few coarse crackles in mid and lower lung shah Cardiovascular: Regular rate, Regular Rhythm, Normal S1, Normal S2, No murmurs Abdomen: Bowel Sounds Present, Soft, Non Tender, Non-Distended, No Hepato-splenomegaly Extremities: No clubbing, No cyanosis, No edema, Capillary Refill Less than 3 Seconds Skin: No rashes, No breakdown, Ulcer/ Wound Musculoskeletal: No Tenderness to Palpation of Joints or Extremities Lymphatic: No Cervical, Supraclavicular, or Inguinal Adenopathy Neurological: Cranial nerves II-XII grossly intact, Neuro grossly intact, Motor Exam 5/5 strength throughout Psych/Mental Status: Normal Affect, Appropriate, Alert and oriented to time, place, person, mood and affect Microbiology Past 72 Hours 06/14/18 20:55 Mucosa - Nasopharyngeal Respiratory Panel (PCR) - Final RSV B 06/14/18 20:25 Urine, Clean Catch Streptococcus pneumoniae Antigen (M - Final 06/14/18 20:25 Urine, Clean Catch Legionella Antigen - Final Laboratory Results 06/16/18 05:15: WBC 9.4, RBC 4.24 L, Hgb 10.9 L, Hct 36.7 L, MCV 86.6, MCH 25.7 L, MCHC 29.7 L, RDW 19.3 H, RDW Differential 61.2 H, Plt Count 224, MPV 10.1, Immature Gran % (Auto) 0.200, Neut % (Auto) 74.1 H, Lymph % (Auto) 12.4 L, Cooper % (Auto) 12.8 H, Eos % (Auto) 0.1, Baso % (Auto) 0.4, Absolute Neuts (auto) 7.0, Absolute Lymphs (auto) 1.17, Total Counted Not Reportable 06/16/18 05:15: Sodium 143, Potassium 3.9, Chloride 104, Carbon Dioxide 31.0, Anion Gap 8, BUN 17, Creatinine 1.12, Estim Creat Clear Calc 61.56, Est GFR (MDRD) Af Amer 83, Est GFR (MDRD) Non-Af 68, BUN/Creatinine Ratio 15.2, Glucose 112 H, Calcium 8.3 L, Magnesium 2.2 Current Medications Acetaminophen (Tylenol) 650 mg PO Q4H PRN PRN PRN Reason: FEVER Albuterol Sulfate (Ventolin Aerosols) 2.5 mg INHALATION Q2H PRN PRN PRN Reason: SHORTNESS OF BREATH Last Admin: 06/14/18 20:38 Dose: 2.5 mg Albuterol/Ipratropium (Duoneb) 3 ml INHALATION Q6H.RT [facility] Last Admin: 06/16/18 06:59 Dose: 3 ml [facility] Last Admin: 06/16/18 09:25 Dose: 81 mg Digoxin (Lanoxin) 250 mcg PO DAILY [facility] Last Admin: 06/16/18 09:25 Dose: 250 mcg Docusate Sodium (Colace) 100 mg PO BID@1200,2200 [facility] Last Admin: 06/15/18 23:39 Dose: 100 mg Duloxetine HCl (Cymbalta) 60 mg PO QHS [facility] Last Admin: 06/15/18 23:39 Dose: 60 mg Fenofibrate (Tricor) 145 mg PO LUNCH [facility] Last Admin: 06/15/18 11:58 Dose: 145 mg Folic Acid (Folic Acid) 1 mg PO DAILY@1200 [facility] Last Admin: 06/15/18 11:57 Dose: 1 mg Furosemide (Lasix) 40 mg IV BIDLX [facility] Last Admin: 06/16/18 09:25 Dose: 40 mg Gabapentin (Neurontin) 1,200 mg PO QHS [facility] Last Admin: 06/15/18 23:39 Dose: 1,200 mg Guaifenesin (Mucinex) 1,200 mg PO BID [facility] Last Admin: 06/16/18 09:25 Dose: 1,200 mg Heparin Sodium (Beef Lung) () 50 units IV UD PRN PRN Reason: HEPARIN FLUSH Hydralazine HCl (Apresoline Iv) 10 mg IV Q6H PRN PRN PRN Reason: SBP >160 Losartan Potassium (Cozaar) 50 mg PO DAILY [facility] Last Admin: 06/16/18 09:25 Dose: 50 mg Magnesium Hydroxide (Milk Of Magnesia) 30 ml PO DAILY PRN PRN Reason: Constipation Metoprolol Tartrate (Lopressor (Beta Taisha)) 50 mg PO DAILY@2200 [facility] Last Admin: 06/15/18 18:41 Dose: 50 mg Ondansetron HCl (Zofran) 4 mg IV Q8H PRN PRN PRN Reason: NAUSEA Pantoprazole Sodium (Protonix) 20 mg PO DAILY@1700 [facility] Last Admin: 06/15/18 17:26 Dose: 20 mg Potassium Chloride (K-Dur) [facility] meq [facility] Last Admin: 06/16/18 09:25 Dose: 10 meq Pramipexole Dihydrochloride (Mirapex) 0.5 mg PO TID [facility] Last Admin: 06/16/18 05:52 Dose: 0.5 mg Pravastatin Sodium (Pravachol) 40 mg PO QHS [facility] Last Admin: 06/15/18 23:39 Dose: 40 mg Rivaroxaban (Xarelto) 10 mg PO DAILY [facility] Last Admin: 06/16/18 09:26 Dose: 10 mg Senna (Senokot) 1 tablet PO DINNER [facility] Last Admin: 06/15/18 17:26 Dose: 1 tablet Sodium Chloride () 10 ml IV UD PRN PRN Reason: R PORT FLUSH Last Admin: 06/16/18 05:19 Dose: 10 ml Medical Necessity - Tobacco Use Smoking Status: Former smoker Assessment/Plan 1. Upper respiratory tract infection due to to RSV infection shortness of breath has improved on breathing treatments with duonebs 2. Acute on chronic hypoxic respiratory failure due to URTI was on 15L of oxygen by nasal canula on admission; now down to 3L of oxygen today, which is his baseline on breathing treatments with duonebs 3. 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 modereat global RV systolic dysfunction. right atrium severely enlarge; LA moderately enlarged on IV lasix, metoprolol, losartana nd digoxin 4. CAD s/o CABG and stents: on aspirin, metoprolol, losartan and statins currently asymptomatic 5. Pulmonary hypertension: RVSP per echo was 84mmhg, indicating severe pulmonary hypertension. Likely due to COPD and contributing to SOB. WIll refer to pulmonology on discharge. 6. Chronic atrial fibrillation: stable. On digoxin and metoprolol. On xarelto 7. Hypertension: control is now improving on losartan and metoprolol. losartan increased to 50mg daily and metoprolol increased to 50mg daily also. will monitor and adjust as neded. 8. Chronic anemia with history of GI bleed: stable. 9. COPD: on oxygen at night and CPAP prn. On breathing treatments. Incentive spirometer 10. Hyperlipidemia: on statin DVT prophylaxis: on xarelto for Afib Code Visit Inpatient E&M: [id number] [facility] H[facility] L3
--- NOTE | 2018-06-16 12:21 | PN_ITS ---
Subjective: Patient seen and examined. He feels better shortness of breath has improved. He still complains of productive cough. He is on 4 L of oxygen still. He denies any chest pain, palpitations, abdominal pain, diarrhea vomiting. Review of systems otherwise negative. Labs and vitals reviewed. Blood pressure was very elevated yesterday and was in the 200s systolic. Medications were adjusted and blood pressure control has improved significantly with blood pressure being down to the 120 systolic today. Vitals/I&O's: Vital Signs Temp Pulse Resp BP Pulse Ox 97.6 F L 82 20 H 122/89 H 98 06/16/18 09:32 06/16/18 10:59 06/16/18 09:32 06/16/18 09:32 06/16/18 09:32 Oxygen Flow Rate (L/min) 3 Oxygen Delivery Method Nasal Cannula Weight: 286 lb 2.56 oz Body Mass Index (BMI) 41.0 Intake and Output for Last 24 Hours 06/14/18 06/15/18 06/16/18 23:59 23:59 23:59 Intake Total 2470.4 / 2470.4 120 / 120 Output Total 3000 / 3000 Balance -529.6 / -529.6 120 / 120 General: Alert, Oriented x3, Cooperative, No apparent distress HEENT: Atraumatic, PERRLA, EOMI, Normocephalic Oral: Dry Mucosa Neck: Supple, No JVD, Negative Carotid Bruits Lungs: - - reduced breath sounds bibasally, few coarse crackles in mid and lower lung shah Cardiovascular: Regular rate, Regular Rhythm, Normal S1, Normal S2, No murmurs Abdomen: Bowel Sounds Present, Soft, Non Tender, Non-Distended, No Hepato- splenomegaly Extremities: No clubbing, No cyanosis, No edema, Capillary Refill Less than 3 Seconds Skin: No rashes, No breakdown, Ulcer/ Wound Musculoskeletal: No Tenderness to Palpation of Joints or Extremities Lymphatic: No Cervical, Supraclavicular, or Inguinal Adenopathy Neurological: Cranial nerves II-XII grossly intact, Neuro grossly intact, Motor Exam 5/5 strength throughout Psych/Mental Status: Normal Affect, Appropriate, Alert and oriented to time, place, person, mood and affect Microbiology Past 72 Hours 06/14/18 20:55 Mucosa - Nasopharyngeal Respiratory Panel (PCR) - Final RSV B 06/14/18 20:25 Urine, Clean Catch Streptococcus pneumoniae Antigen (M - Final 06/14/18 20:25 Urine, Clean Catch Legionella Antigen - Final Laboratory Results 06/16/18 05:15: WBC 9.4, RBC 4.24 L, Hgb 10.9 L, Hct 36.7 L, MCV 86.6, MCH 25.7 L, MCHC 29.7 L, RDW 19.3 H, RDW Differential 61.2 H, Plt Count 224, MPV 10.1, Immature Gran % (Auto) 0.200, Neut % (Auto) 74.1 H, Lymph % (Auto) 12.4 L, Wayne % (Auto) 12.8 H, Eos % (Auto) 0.1, Baso % (Auto) 0.4, Absolute Neuts (auto) 7.0, Absolute Lymphs (auto) 1.17, Total Counted Not Reportable 06/16/18 05:15: Sodium 143, Potassium 3.9, Chloride 104, Carbon Dioxide 31.0, Anion Gap 8, BUN 17, Creatinine 1.12, Estim Creat Clear Calc 61.56, Est GFR (MDRD) Af Amer 83, Est GFR (MDRD) Non-Af 68, BUN/Creatinine Ratio 15.2, Glucose 112 H, Calcium 8.3 L, Magnesium 2.2 Current Medications Acetaminophen (Tylenol) 650 mg PO Q4H PRN PRN PRN Reason: FEVER Albuterol Sulfate (Ventolin Aerosols) 2.5 mg INHALATION Q2H PRN PRN PRN Reason: SHORTNESS OF BREATH Last Admin: 06/14/18 20:38 Dose: 2.5 mg Albuterol/Ipratropium (Duoneb) 3 ml INHALATION Q6H.RT [facility] Last Admin: 06/16/18 06:59 Dose: 3 ml [facility] ([facility] Admin: 06/16/18 09:25 Dose: 81 mg Digoxin (Lanoxin) 250 mcg PO DAILY [facility] Last Admin: 06/16/18 09:25 Dose: 250 mcg Docusate Sodium (Colace) 100 mg PO BID@1200,2200 [facility] Last Admin: 06/15/18 23:39 Dose: 100 mg Duloxetine HCl (Cymbalta) 60 mg PO QHS [facility] Last Admin: 06/15/18 23:39 Dose: 60 mg Fenofibrate (Tricor) 145 mg PO LUNCH [facility] Last Admin: 06/15/18 11:58 Dose: 145 mg Folic Acid (Folic Acid) 1 mg PO DAILY@1200 [facility] Last Admin: 06/15/18 11:57 Dose: 1 mg Furosemide (Lasix) 40 mg IV BIDLX [facility] Last Admin: 06/16/18 09:25 Dose: 40 mg Gabapentin (Neurontin) 1,200 mg PO QHS [facility] Last Admin: 06/15/18 23:39 Dose: 1,200 mg Guaifenesin (Mucinex) 1,200 mg PO BID [facility] Last Admin: 06/16/18 09:25 Dose: 1,200 mg Heparin Sodium (Beef Lung) () 50 units IV UD PRN PRN Reason: HEPARIN FLUSH Hydralazine HCl (Apresoline Iv) 10 mg IV Q6H PRN PRN PRN Reason: SBP >160 Losartan Potassium (Cozaar) 50 mg PO DAILY [facility] Last Admin: 06/16/18 09:25 Dose: 50 mg Magnesium Hydroxide (Milk Of Magnesia) 30 ml PO DAILY PRN PRN Reason: Constipation Metoprolol Tartrate (Lopressor (Beta Taisha)) 50 mg PO DAILY@2200 [facility] Last Admin: 06/15/18 18:41 Dose: 50 mg Ondansetron HCl (Zofran) 4 mg IV Q8H PRN PRN PRN Reason: NAUSEA Pantoprazole Sodium (Protonix) 20 mg PO DAILY@1700 [facility] Last Admin: 06/15/18 17:26 Dose: 20 mg Potassium Chloride (K-Dur) [facility] Last Admin: 06/16/18 09:25 Dose: 10 meq Pramipexole Dihydrochloride (Mirapex) 0.5 mg PO TID [facility] Last Admin: 06/16/18 05:52 Dose: 0.5 mg Pravastatin Sodium (Pravachol) 40 mg PO QHS [facility] Last Admin: 06/15/18 23:39 Dose: 40 mg Rivaroxaban (Xarelto) 10 mg PO DAILY [facility] Last Admin: 06/16/18 09:26 Dose: 10 mg Senna (Senokot) 1 tablet PO DINNER [facility] Last Admin: 06/15/18 17:26 Dose: 1 tablet Sodium Chloride () 10 ml IV UD PRN PRN Reason: R PORT FLUSH Last Admin: 06/16/18 05:19 Dose: 10 ml Medical Necessity - Tobacco Use Smoking Status: Former smoker Assessment/Plan 1. Upper respiratory tract infection due to to RSV infection * shortness of breath has improved * on breathing treatments with duonebs * * 2. Acute on chronic hypoxic respiratory failure due to URTI * was on 15L of oxygen by nasal canula on admission; * now down to 3L of oxygen today, which is his baseline * on breathing treatments with duonebs 3. 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 modereat global RV systolic dysfunction. right atrium severely enlarge; LA moderately enlarged * on IV lasix, metoprolol, losartana nd digoxin * 4. CAD s/o CABG and stents: * on aspirin, metoprolol, losartan and statins * currently asymptomatic * 5. Pulmonary hypertension: * RVSP per echo was 84mmhg, indicating severe pulmonary hypertension. Likely due to COPD and contributing to SOB. * WIll refer to pulmonology on discharge. * 6. Chronic atrial fibrillation: stable. On digoxin and metoprolol. On xarelto 7. Hypertension: * control is now improving * on losartan and metoprolol. losartan increased to 50mg daily and metoprolol increased to 50mg daily also. * will monitor and adjust as neded. * 8. Chronic anemia with history of GI bleed: stable. 9. COPD: on oxygen at night and CPAP prn. On breathing treatments. Incentive spirometer 10. Hyperlipidemia: on statin DVT prophylaxis: on xarelto for Afib Code Visit Inpatient E&M: [id number] [facility] Hosp L3
[2018-06-16] MEDS: Pantoprazole Sodium 20 MG Tablet PO (16:13)
[2018-06-16] MEDS: Senna Tablet 1 TABLET PO (16:13)
[2018-06-16] MEDS: BENZOCAINE/MENTHOL 1 LOZENGE MUCOUS MEM (18:41)
[2018-06-16] MEDS: DULoxetine Hcl 60 MG Capsule PO (21:30)
[2018-06-16] MEDS: Pravastatin 40 MG Tablet PO (21:30)
[2018-06-16] MEDS: Metoprolol Tartrate 50 MG Tablet PO (21:34)
[2018-06-16] MEDS: Gabapentin 600 MG Tablet 1200 MG PO (21:34)
[2018-06-17] VITALS (12 sets, daily range): BP systolic 139–158; BP diastolic 70–77; PULSE 72–95; RESP 12–20; TEMP 36.4–36.6; O2SAT 86–98
[2018-06-17] MEDS: Ipratropium/Albuterol Sulfate 3 ML AMPUL.NEB INHALATION ×2 (01:54→07:15)
[2018-06-17] MEDS: Pramipexole Di-HCl 0.5 MG Tablet PO (05:22)
[2018-06-17 05:44] LABS: Absolute Lymphocyte Count 1.26 X10^3/ul (0.83-4.51); Absolute Neutrophil Count 5.5 X10^3/uL (2.0-7.7); Basophil# 0.04 X10^3/uL; Basophil% 0.5 % (0-1); Eosinophil# 0.15 X10^3/uL; Eosinophils% 1.9 % (0-5); Hematocrit 36.6 % (40-54); Hemoglobin 10.8 g/dl (13.0-16.5); Lymphocyte # 1.26 X10^3/ul (4.0); Mean Corp Hgb Conc 29.5 g/gl (32-36); Mean Corpuscular Hgb 25.9 pg (27.0-32.0); Mean Corpuscular Volume 87.8 fL (80-94); Mean Platelet Vol. 9.5 fl (6.2-12.0); Monocyte# 0.91 X10^3/uL; Monocyte% 11.6 % (0-10); Neutrophil # 5.48 X10^3/uL (2.7-7.7); Neutrophil % 69.7 % (47-70); Platelet Count 218 K/mm3 (150-450); RBC Distribution Width CV 19.2 % (11.6-14.6); RBC Distribution Width SD 60.4 fl (35.1-43.9); Red Blood Count 4.17 M/mm3 (4.6-6.2); White Blood Count 7.9 K/mm3 (4.4-11.0)
[2018-06-17 05:50] LABS: POSITIVE COUNT NO; POSITIVE DIFFERENTIAL NO; POSITIVE MORPHOLOGY NO
[2018-06-17 06:00] LABS: Anion Gap 9 (5-15); BUN 16 mg/dL (7-18); BUN/Creat Ratio 15.2 RATIO (10-20); Calcium,Total 8.2 mg/dL (8.5-10.1); Chloride 103 mmol/L (98-107); Creatinine, Serum 1.05 mg/dL (0.70-1.30); EST Glomerular Filtration Rate 74 mL/min (>60); Est Glom Filt Rate - Afr Amer 89 mL/min (>60); Estimated Creatinine Clearance 65.66 ml/min; Glucose 110 mg/dL (74-106); Magnesium 2.1 mg/dL (1.6-2.6); Potassium 3.5 mmol/L (3.5-5.1); Sodium Level 144 mmol/L (136-145)
[2018-06-17] MEDS: BENZOCAINE/MENTHOL 1 LOZENGE MUCOUS MEM (08:26)
[2018-06-17] MEDS: Aspirin E.C. 81 MG Tablet PO (08:26)
--- NOTE | 2018-06-17 10:21 | DCINST_ITS ---
You will use the following diet at home:: Cardiac Your food should be the consistency of: Regular Discharge Activity: Return to Normal Activity Weight Bearing Status: Weight bearing as tolerated Call your doctor if you observe: Shortness of breath, Swelling in the ankles Instructions: RSV (Respiratory Syncytial Virus) Additional Instructions: dosage of metoprolol and losartan increased from 25mg daily to 50mg daily to better control BP. Follow with PCP for adjustment as needed. Allergies/Adverse Reactions: Allergies No Known Allergies Allergy (Verified 06/14/18 15:39) Medications to take at Discharge Fenofibrate [Tricor] 145 mg PO LUNCH 05/06/13 Folic Acid 1 mg PO DAILY@1200 05/06/13 Tiotropium Dietrich [Spiriva 18 MCG] 1 puff INHALATION DAILY 05/06/13 Duloxetine HCl 60 mg PO QHS 12/04/16 Pramipexole Di-HCl [Mirapex] 0.5 mg PO TID 12/04/16 aspirin 81 mg tablet,delayed release 81 mg PO DAILY 10/06/17 docusate sodium 100 mg capsule 100 mg PO BID cap 10/20/17 gabapentin 600 mg tablet 1,200 mg PO QHS tab 10/20/17 Formoterol Fumarate [Perforomist] 20 mcg INHALATION BID 12/22/17 Multivit-Min/Iron Fum/Folic AC [Kxjky-Ydryiza-Rqcwkuid Tablet] 1 ea PO BID 12/22/17 Omeprazole 20 mg PO DAILY@1700 12/22/17 Digoxin 0.25 mg PO DAILY 01/27/18 furosemide 20 mg tablet 20 mg PO QODAY 02/25/18 furosemide 40 mg tablet 40 mg PO QODAY tab 02/25/18 rivaroxaban 10 mg tablet 10 mg PO DAILY 02/25/18 Potassium Chloride [K-Tab ER] 10 meq PO DAILY 03/19/18 Pravastatin Sodium 40 mg PO QHS 03/19/18 Senna [Senokot] 1 tablet PO DINNER 03/19/18 Cholecalciferol (Vitamin D3) [Vitamin D3] 5,000 unit PO DAILY 06/14/18 Guaifenesin [Mucinex] 600 mg PO Q12H PRN PRN #30 tab.er.12h 06/17/18 Losartan Potassium [Cozaar] 50 mg PO DAILY #30 tablet 06/17/18 Metoprolol Tartrate [Lopressor (beta zita)] 50 mg PO DAILY@2200 #30 tablet 06/17/18 Prednisone 40 mg PO DAILY 5 Days #10 tablet 06/17/18 The following prescriptions were given: Guaifenesin [Mucinex] 600 mg PO Q12H PRN PRN #30 tab.er.12h PRN Reason: Chest Congestion/Secretions Losartan Potassium [Cozaar] 50 mg PO DAILY #30 tablet Metoprolol Tartrate [Lopressor (beta zita)] 50 mg PO DAILY@2200 #30 tablet Prednisone 40 mg PO DAILY 5 Days #10 tablet Primary Care Physician: Fany Hobson DO [Primary Care Provider] - Please follow up with your Primary Care Physician in: 1 week Test Results: Test results from this visit will be discussed in further detail at your follow- up appointment, if applicable. Proposed Discharge Date: 06/17/18
--- NOTE | 2018-06-17 10:21 | DS.PCM_ITS ---
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 Chronic atrial fibrillation (Chronic) angiolasty and stenting to BLE iliac arteries (Chronic 08/04/12) History of cardioversion (Chronic 12/2016) Secondary pulmonary arterial hypertension (Chronic) Atherosclerosis of coronary artery of [place] heart without angina pectoris (Chronic) CABG x 2 HERRERA-LAD, SVG-OM 02/14/2006 SPW-CHI-JXIR anastomosis-LAD w/ Taxus 2.75 x 8 mm and POBA-PDA 12/23/2006 H/O coronary artery bypass surgery (Chronic 02/14/06) CABG x 2 HERRERA-LAD, SVG-OM 02/14/[address] 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 Developing infiltrate or atelectasis of the medial right lower lobe. 2. Mild cardiomegaly, CABG. Electronically Signed: Emerson Durant MD at 17:02 EST , Service support , Operations: None Procedures: None Summary of Care Provided: The patient is a 72 year old M with an extensive past medical history as listed below. He was admitted through the ED with complaint of shortness of breath for 2 days worsened by exertion and relieved by rest with assisted productive cough with yellow sputum. He also had assisted orthopnea and also reported subjective fever. He had chronic respiratory failure due to COPD and was on oxygen at night with 3 L as well as CPAP at night. Chest x-ray showed questionable right base infiltrate which is likely due to atelectasis. He was admitted and managed for suspected right lower lobe health assisted pneumonia and acute on chronic hypoxic respiratory failure and probable acute on chronic combined diastolic and systolic heart failure. He required 15 L of oxygen by nasal cannula on admission and was subsequently switched to BiPAP. Was initially started on IV vancomycin and IV Zosyn. However respiratory panel was positive for evidence of infection and he had no leukocytosis so antibiotics were DC'd as the diagnosis was more of upper respiratory tract infection due to RSV and less likely health associated pneumonia. He was continued on breathing treatments. Also started on IV Lasix for CHF exacerbation. His blood pressure was very poorly controlled and was in the 200s systolic during admission. Medications were therefore adjusted and losartan and metoprolol were both increased from 25 mg daily to 50 mg daily with resultant improvement in blood pressure control. Patient improved significantly and remained stable though at rest on room air during the day he was saturating at 86% and therefore he required oxygen both during the day and at night and he was sent home with this. 2D echo done showed EF of 45% with mild global left ventricular systolic dysfunction and unable to assess diastolic dysfunction and RVSP of 84 mmHg with moderate right ventricular global systolic dysfunction and severely enlarged right atrium. A diagnosis of pulmonary hypertension was therefore made based on echo findings and this was likely due to heart failure and COPD. He remained stable and was discharged home on 06/17/2018. He is to follow-up with his primary care doctor and public health director. Patient seen and examined prior to discharge. He felt better and cough had resolved. Shortness of breath also improved. He denied any fever, any chills, any chest pain or palpitations any diarrhea vomiting. Review of systems otherwise negative. Labs and vitals reviewed. Home medications reviewed and reconciled. On examination Vital Signs Height 5 ft 10 in Weight: 285 lb 7.978 oz Weight in Pounds 285.5 lbs Pulse Ox [At REST on Room Air] 86 Pulse Ox 97 Temperature 97.5 F Pulse Rate 82 Respiratory Rate 18 Blood Pressure [BP] 210/100 Blood Pressure 158/77 Blood Pressure Position [BP] Semi-Fowlers Blood Pressure Position Semi-Fowlers [] General: Alert, Oriented x3, Cooperative, No apparent distress HEENT: Atraumatic, PERRLA, EOMI, Normocephalic Oral: Dry Mucosa Neck: Supple, No JVD, Negative Carotid Bruits Lungs: - - reduced breath sounds bibasally, minimal wheezing and crackles Abdomen: Bowel Sounds Present, Soft, Non Tender, Non-Distended, No Hepato- splenomegaly Extremities: No clubbing, No cyanosis, No edema, Capillary Refill Less than 3 Seconds Skin: No rashes, No breakdown, Ulcer/ Wound Musculoskeletal: No Tenderness to Palpation of Joints or Extremities Lymphatic: No Cervical, Supraclavicular, or Inguinal Adenopathy Neurological: Cranial nerves II-XII grossly intact, Neuro grossly intact, Motor Exam 5/5 strength throughout Psych/Mental Status: Normal Affect, Appropriate, Alert and oriented to time, place, person, mood and affect Plan is as stated above. He is been discharged home with home oxygen both during the day and night as needed because oxygen saturation was 86% on room air. He was also discharged with a prescription for p.o. prednisone 40 mg daily for 5 days. - Physical Exam Vital Signs Temp Pulse Resp BP Pulse Ox 97.9 F 72 20 H 146/70 H 95 06/17/18 08:35 06/17/18 08:35 06/17/18 08:35 06/17/18 08:35 06/17/18 08:35 Oxygen Flow Rate (L/min) 3 Oxygen Delivery Method Nasal Cannula Weight: 285 lb 7.978 oz Body Mass Index (BMI) 41.0 Intake and Output for Last 24 Hours 06/15/18 06/16/18 06/17/18 23:59 23:59 23:59 Intake Total 2470.4 / 2470.4 1959 / 1959 1000 / 1000 Output Total 3000 / 3000 3000 / 3000 2200 / 2200 Balance -529.6 / -529.6 -1040 / -1040 -1200 / -1200 Microbiology Past 72 Hours 06/14/18 16:09 Blood Culture - Preliminary Blood Culture (Wb) - Left Hand No growth in 48 hours. 06/14/18 16:10 Blood Culture - Preliminary Blood Culture (Wb) - Port No growth in 48 hours. 06/14/18 20:55 Respiratory Panel (PCR) - Final Mucosa - Nasopharyngeal RSV B 06/14/18 20:25 Streptococcus pneumoniae Antigen (M - Final Urine, Clean Catch 06/14/18 20:25 Legionella Antigen - Final Urine, Clean Catch Laboratory Tests Past 24 Hrs 06/17/18 06/17/18 05:25 05:25 WBC 7.9 RBC 4.17 L Hgb 10.8 L Hct 36.6 L MCV 87.8 MCH 25.9 L MCHC 29.5 L RDW 19.2 H RDW Differential 60.4 H Plt Count 218 MPV 9.5 Immature Gran % (Auto) 0.300 Neut % (Auto) 69.7 Lymph % (Auto) 16.0 L [place] % (Auto) 11.6 H Eos % (Auto) 1.9 Baso % (Auto) 0.5 Absolute Neuts (auto) 5.5 Absolute Lymphs (auto) 1.26 Total Counted Not Reportable Sodium 144 Potassium 3.5 Chloride 103 Carbon Dioxide 32.0 Anion Gap 9 BUN 16 Creatinine 1.05 Estim Creat Clear Calc 65.66 Est GFR (MDRD) Af Amer 89 Est GFR (MDRD) Non-Af 74 BUN/Creatinine Ratio 15.2 Glucose 110 H Calcium 8.2 L Magnesium 2.1 Discharge Diet: Low fat/ Low Cholesterol Discharge Activity: Return to Normal Activity Weight Bearing Status: Weight bearing as tolerated Call your doctor if you observe: Shortness of breath, Swelling in the ankles Home Medications: Medications to take at Discharge Fenofibrate [Tricor] 145 mg PO LUNCH 05/06/13 Folic Acid 1 mg PO DAILY@1200 05/06/13 Tiotropium [place] [Spiriva 18 MCG] 1 puff INHALATION DAILY 05/06/13 Duloxetine HCl 60 mg PO QHS 12/04/16 Pramipexole Di-HCl [Mirapex] 0.5 mg PO TID 12/04/16 aspirin 81 mg tablet,delayed release 81 mg PO DAILY 10/06/17 docusate sodium 100 mg capsule 100 mg PO BID cap 10/20/17 gabapentin 600 mg tablet 1,200 mg PO QHS tab 10/20/17 Formoterol Fumarate [Perforomist] 20 mcg INHALATION BID 12/22/17 Multivit-Min/Iron Fum/Folic AC [Sbzpz-Wafkvjv-Ggkqxqkh Tablet] 1 ea PO BID 12/22/17 Omeprazole 20 mg PO DAILY@1700 12/22/17 Digoxin 0.25 mg PO DAILY 01/27/18 furosemide 20 mg tablet 20 mg PO QODAY 02/25/18 furosemide 40 mg tablet 40 mg PO QODAY tab 02/25/18 rivaroxaban 10 mg tablet 10 mg PO DAILY 02/25/18 Potassium Chloride [K-Tab ER] 10 meq PO DAILY 03/19/18 Pravastatin Sodium 40 mg PO QHS 03/19/18 Senna [Senokot] 1 tablet PO DINNER 03/19/18 Cholecalciferol (Vitamin D3) [Vitamin D3] 5,000 unit PO DAILY 06/14/18 Guaifenesin [Mucinex] 600 mg PO Q12H PRN PRN #30 tab.er.12h 06/17/18 Losartan Potassium [Cozaar] 50 mg PO DAILY #30 tablet 06/17/18 Metoprolol Tartrate [Lopressor (beta zita)] 50 mg PO DAILY@2200 #30 tablet 06/17/18 Prednisone 40 mg PO DAILY 5 Days #10 tablet 06/17/18 Following Prescrptions Were Given to Patient: Guaifenesin [Mucinex] 600 mg PO Q12H PRN PRN #30 tab.er.12h PRN Reason: Chest Congestion/Secretions Losartan Potassium [Cozaar] 50 mg PO DAILY #30 tablet Metoprolol Tartrate [Lopressor (beta zita)] 50 mg PO DAILY@2200 #30 tablet Prednisone 40 mg PO DAILY 5 Days #10 tablet Primary Care Physician: Fany Hobson DO [Primary Care Provider] - Please follow up with your Primary Care Physician in: 1 week Patient Instructions: RSV (Respiratory Syncytial Virus) Disposition: Home Minutes spent on discharge:: 33 Patient Condition:: Stable Medical Necessity - Tobacco Use Smoking Status: Former smoker Meaningful Use Info Meaningful Use Diagnoses (Choose all that apply): CHF - CHF LALY/ARB ordered at discharge?: Yes Documented LVEF (%): 45 Code Visit Inpatient E&M: 46884 Disch Hosp
[2018-06-17] MEDS: Losartan Potassium 50 MG Tablet PO (10:30)
[2018-06-17] MEDS: Furosemide 40 MG/4 ML Vial IV (10:30)
[2018-06-17] MEDS: guaiFENesin 1,200 MG Tablet 1200 MG PO (10:31)
[2018-06-17] MEDS: Rivaroxaban 10 MG Tablet PO (10:31)
[2018-06-17] MEDS: Digoxin 250 MCG Tablet PO (10:31)
--- NOTE | 2018-06-17 11:27 | CASEMGMT ---
Addendum entered by Kaylee Goodson 06/17/18 13:04: Per Nita BARTHOLOMEW, pt did qualify for home oxygen at this time. Referral faxed to [facility] and they state that they will be bringing a tank for pt. Mehul BARTHOLOMEW CM Original Note: Therapy is recommending [facility] for pt at this time. This RN CM to room and pt would like [facility] again at this time and order placed for RN, PT/OT. Call to Hannah at [facility] at this time and she states that they can take pt. Call to [facility] as pt is unsure what current home oxygen order is for him at this time and per Rudi, they need a new order for continuous oxygen for pt at this time. Nita BARTHOLOMEW aware and will test pt at this time. If pt qualifies, referral will be sent to [facility]. Mehul BARTHOLOMEW CM
[2018-06-17] MEDS: Docusate Sodium 100 MG Capsule PO (11:56)
[2018-06-17] MEDS: Fenofibrate 145 MG Tablet PO (11:56)
[2018-06-17] MEDS: Folic Acid 1 MG Tablet PO (11:56)
--- NOTE | 2018-06-18 15:48 | CASEMGMT ---
[place] MARTIN[place] Discharge Follow-Up Phone Call. Lelo: Micki Strata: 4 Discharge Date: 06-17-18 Adm Dx: Suspected HCAP, Probable acute on chronic CHF, Acute on chronic hypoxic resp failure Call placed to pt for discharge follow-up phone call to inquire how pt has been doing since he was discharged from the hospital. Pt states he's still a little weak. States [facility] nurse was just out to see him today and reviewed all his medications with him. He states he has a follow-up appt with Dr Hobson tomorrow @1100 and an appt with his foot doctor on the . Pt states he was able to crop picker all of his new prescriptions and does not have any questions about his medication or about the discharge instructions. Pt states, You sure have nice staff there. They took great care of me and they were all wonderful. Pt denies having any questions or needs at this time. [place] MARTINES thanked pt for choosing [facility]. Eyad RODRIGUEZ RN, CM
== END 2018-06-17 14:45 | disposition home health service (06) | DRG 291 ==
LOC: ED 16:28 → PCU 18:50
PROVIDERS: Admitting Provider Hospitalist; Emergency Provider Emergency Medicine; Family Provider Internal Medicine; PCP Internal Medicine; Visit Provider Student in an Organized Health Care Education/Training Program
DX: I11.0 Hypertensive heart disease with heart failure (principal); J96.21 Acute and chronic respiratory failure with hypoxia; C34.12 Malignant neoplasm of upper lobe, left bronchus or lung; I50.43 Acute on chronic combined systolic (congestive) and diastolic (congestive) heart failure; J06.9 Acute upper respiratory infection, unspecified; B97.4 Respiratory syncytial virus as the cause of diseases classified elsewhere; Z99.81 Dependence on supplemental oxygen; I48.2 Chronic atrial fibrillation; E78.5 Hyperlipidemia, unspecified; I25.10 Atherosclerotic heart disease of native coronary artery without angina pectoris; K21.9 Gastro-esophageal reflux disease without esophagitis; Z79.01 Long term (current) use of anticoagulants; Z95.5 Presence of coronary angioplasty implant and graft; Z95.1 Presence of aortocoronary bypass graft; Z79.899 Other long term (current) drug therapy; Z87.891 Personal history of nicotine dependence; G47.33 Obstructive sleep apnea (adult) (pediatric); J44.9 Chronic obstructive pulmonary disease, unspecified; F03.90 Unspecified dementia, unspecified severity, without behavioral disturbance, psychotic disturbance, mood disturbance, and anxiety; D50.0 Iron deficiency anemia secondary to blood loss (chronic); I27.21 Secondary pulmonary arterial hypertension
CPT/HCPCS: 36415; 36591; 36600; 71045; 80048; 80053; 81002; 82803; 83605; 83735; 83880; 84484; 85025; 87040; 87449; 87633; 87640; 93005; 93306; 94002; 94003; 94640; 94667; 94668; 97162; 97165; 97535; 97802; 99285; J7040; A4216; J1940

== ENCOUNTER → 2018-07-16 12:31 | Outpatient (CLI) | payer MEDICARE, OTHER, SELFPAY ==
[2018-05-06 13:39] VITALS: BMI 40.1
[2018-06-14 18:58] VITALS: BMI 41.0
--- NOTE | 2018-07-16 12:40 | CT_ITS ---
STUDY: CT ABDOMEN WITH CONTRAST REASON FOR EXAM: Male, 72 years old. Restaging lung cancer. RADIATION DOSAGE (If Supplied By Facility): CTDIvol = ( 26.64 ) mGy, DLP = ( 1751.91 ) mGycm TECHNIQUE: Transaxial images were obtained post I.V. administration of 75ML ml of Isovue 370 contrast, and without oral contrast. Sagittal and coronal images were reconstructed. Individualized dose optimization techniques were used for this CT. COMPARISON: 01/13/2018. FINDINGS: The visualized lung bases are unremarkable. The visualized portions of the heart are within normal limits. There is hepatomegaly with diffuse hepatic enlargement. Probable fatty liver. No focal masses. Normal gallbladder and extrahepatic biliary system. Normal spleen. Normal pancreas. Stable 5.4 cm heterogeneous mass of the right adrenal gland. Normal left adrenal gland. No acute abnormalities of the kidneys with extensive bilateral scarring and arterial calcifications. Normal visualized stomach. Normal small intestine. Normal colon. The appendix is visualized and appears normal. There is diffuse atherosclerotic calcification of the abdominal aorta, without a demonstrated aneurysm. Normal inferior vena cava. Normal retroperitoneum. Normal abdominal wall. There are diffuse degenerative changes of the visualized lumbar spine. CT/Abdomen WITH IV Contrast IMPRESSION: No significant change or acute abnormality. Stable right adrenal mass. Stable extensive renal cortical scarring. Electronically Signed: Marino Danielson MD at 16:58 EST , Service support ,
--- NOTE | 2018-07-16 12:40 | CT_ITS ---
STUDY: CT CHEST WITH CONTRAST REASON FOR EXAM: Male, 72 years old. Restaging lung cancer. RADIATION DOSAGE (If Supplied By Facility): CTDIvol = ( ) mGy, DLP = ( ) mGycm TECHNIQUE: Transaxial imaging was performed following intravenous administration of 75ML ml of Isovue 370 contrast material. Individualized dose optimization techniques were used for this CT. COMPARISON: 01/13/2018. FINDINGS: Stable appearance of partial resection of the left apex. Stable appearance of resection micaela and scarring. Stable underlying COPD and centrilobular emphysema with scattered calcified granulomas. No effusions. There is no demonstrated pleural abnormality. There is mild cardiac enlargement. Previous CABG. There are calcifications of the coronary arteries. Normal mediastinum. Normal hilar regions. Normal enhanced pulmonary arteries. There is atherosclerotic calcification of the aortic arch with tortuosity and elongation of the aortic arch and descending thoracic aorta. There are multi-level degenerative changes of the thoracic spine. See separate report for CT of the abdomen and pelvis. CT/Chest WITH Contrast IMPRESSION: No change or acute abnormality. Postsurgical changes seen in the left apex. COPD. No evidence for mass. Electronically Signed: Marino Danielson MD at 17:10 EST , Service support ,
== END ==
PROVIDERS: Family Provider Internal Medicine; PCP Internal Medicine; Referring Provider Internal Medicine Hematology & Oncology; Visit Provider Internal Medicine Hematology & Oncology
DX: C34.12 Malignant neoplasm of upper lobe, left bronchus or lung (principal)
CPT/HCPCS: 71260; 74160; Q9967

== ENCOUNTER → 2018-08-27 10:38 | Outpatient (CLI) | payer MEDICARE, OTHER, SELFPAY ==
[2018-08-17 12:37] VITALS: BMI 41.1
[2018-08-27 12:28] LABS: Absolute Lymphocyte Count 0.87 X10^3/ul (0.83-4.51); Absolute Neutrophil Count 8.8 X10^3/uL (2.0-7.7); Basophil# 0.06 X10^3/uL; Basophil% 0.6 % (0-1); Eosinophils% 1.9 % (0-5); Hematocrit 44.8 % (40-54); Hemoglobin 13.6 g/dl (13.0-16.5); Lymphocyte # 0.87 X10^3/ul (4.0); Lymphocyte % 8.1 % (19-41); Mean Corp Hgb Conc 30.4 g/gl (32-36); Mean Corpuscular Hgb 28.3 pg (27.0-32.0); Mean Corpuscular Volume 93.3 fL (80-94); Mean Platelet Vol. 10.7 fl (6.2-12.0); Monocyte# 0.84 X10^3/uL; Monocyte% 7.8 % (0-10); Neutrophil # 8.76 X10^3/uL (2.7-7.7); Neutrophil % 81.3 % (47-70); Platelet Count 237 K/mm3 (150-450); RBC Distribution Width CV 21.6 % (11.6-14.6); White Blood Count 10.8 K/mm3 (4.4-11.0)
[2018-08-27 12:31] LABS: Differential Indicated SCAN CRITERIA MET; POSITIVE COUNT NO; POSITIVE DIFFERENTIAL NO; POSITIVE MORPHOLOGY YES
[2018-08-27 12:39] LABS: Uric Acid 4.4 mg/dL (3.5-7.2)
[2018-08-27 13:03] LABS: Anisocytosis 1+; Differential Comment SCANNED
== END ==
PROVIDERS: Family Provider Internal Medicine; PCP Internal Medicine; Referring Provider Podiatrist; Visit Provider Podiatrist
DX: M10.9 Gout, unspecified (principal); B99.9 Unspecified infectious disease
CPT/HCPCS: 36415; 84550; 85025

== ENCOUNTER → 2018-09-08 12:00 | Outpatient (CLI) | payer MEDICARE, OTHER, SELFPAY ==
[2018-08-17 12:37] VITALS: BMI 41.1
--- NOTE | 2018-09-08 12:03 | RAD_ITS ---
STUDY: X-RAY - RIGHT ANKLE REASON FOR EXAM: Pain, postop. TECHNIQUE: 3 view(s) of the ankle. COMPARISON: None. FINDINGS: There is an intact orthopedic plate and screws transfixing a fracture of the distal fibula in anatomic alignment and position. There are very small ossicles at the distal aspect of the medial malleolus. Normal tibiotalar articulation and ankle mortise. Normal visualized talus and calcaneus. The visualized subtalar, talonavicular, calcaneocuboid and tarsal articulations are normal. There is soft tissue swelling. RAD/Ankle min 3 Views IMPRESSION: ORIF of distal fibular fracture. Electronically Signed: Alexis Scott MD at 15:00 EDT Tel , Service support ,
== END ==
PROVIDERS: Family Provider Internal Medicine; PCP Internal Medicine; Visit Provider Internal Medicine
DX: M25.571 Pain in right ankle and joints of right foot (principal)
CPT/HCPCS: 73610; 96523

== ENCOUNTER → 2018-09-18 12:21 | Outpatient (CLI) | payer MEDICARE, OTHER, SELFPAY ==
[2018-08-17 12:37] VITALS: BMI 41.1
--- NOTE | 2018-09-18 12:26 | RAD_ITS ---
STUDY: X-RAY CHEST REASON FOR EXAM: Male, 72 years old. Shortness of breath TECHNIQUE: PA and lateral views of the chest. COMPARISON: Chest x-ray 06/14/2019. FINDINGS: There is a right-sided Ovwtxq-u-Hraz with its tip overlying the SVC. Status post median sternotomy/CABG. There is surgical material at the left lung apex. The lungs are clear and expanded. There is no demonstrated pleural abnormality. Normal size heart. Normal mediastinum and yovanny. Normal visualized pulmonary arteries. Normal visualized aortic arch and descending thoracic aorta. Normal visualized thoracic spine. Normal visualized ribs, clavicles, and shoulders. There is no demonstrated abnormality of the visualized soft tissue structures of the upper abdomen. RAD/Chest PA and Lateral IMPRESSION: Normal x-ray examination of the chest. Electronically Signed: Oscar Rosales, at 13:31 EDT Tel , Service support ,
[2018-09-18 12:51] LABS: Mucous, Urine 0 SEEN /hpf (<or=2+); White Blood Cells 0 SEEN /hpf (0-5)
[2018-09-18 12:59] LABS: Color, Urine Yellow (Yellow); Glucose, Dipstick Normal (Normal); Ketone-Dipstick Negative (Negative); Leukocyte Esterase-Dipstick Negative /ul (Negative); Nitrite-Dipstick Negative (Negative); Occult Blood-Urine 25 /ul (Negative); Protein-Dipstick 100 mg/dl (Negative); Specific Gravity, Urine 1.015 (1.002-1.030); Urine Bilirubin Dipstick Negative (Negative); Urine Clarity Clear (Clear); Urine Urobilinogen 1 mg/dl (Normal); Urine pH 6.5 (5.0 - 8.0)
[2018-09-18 13:03] LABS: Absolute Lymphocyte Count 0.99 X10^3/ul (0.83-4.51); Absolute Neutrophil Count 9.4 X10^3/uL (2.0-7.7); Basophil# 0.05 X10^3/uL; Basophil% 0.4 % (0-1); Eosinophils% 2.5 % (0-5); Erythrocyte Sedimentation Rate 21 mm/hr (0-20); Hematocrit 44.1 % (40-54); Lymphocyte # 0.99 X10^3/ul (4.0); Lymphocyte % 8.4 % (19-41); Mean Corp Hgb Conc 31.7 g/gl (32-36); Mean Corpuscular Hgb 29.4 pg (27.0-32.0); Mean Corpuscular Volume 92.5 fL (80-94); Mean Platelet Vol. 10.2 fl (6.2-12.0); Monocyte% 9.3 % (0-10); Neutrophil # 9.37 X10^3/uL (2.7-7.7); Neutrophil % 79.2 % (47-70); Platelet Count 203 K/mm3 (150-450); RBC Distribution Width CV 19.4 % (11.6-14.6); RBC Distribution Width SD 65.8 fl (35.1-43.9); Red Blood Count 4.77 M/mm3 (4.6-6.2); White Blood Count 11.8 K/mm3 (4.4-11.0)
[2018-09-18 13:05] LABS: Differential Indicated SCAN CRITERIA MET; POSITIVE COUNT NO; POSITIVE DIFFERENTIAL NO; POSITIVE MORPHOLOGY YES; Red Blood Cells-Urine 0-5 SEEN /hpf (0-5); Squamous Epithelial Cells - UA 0-5 SEEN /hpf (0-5)
[2018-09-18 13:06] LABS: Bacteria RARE /hpf (None Seen)
[2018-09-18 13:40] LABS: ALB/GLOB Ratio 1.1 RATIO (0.9-2.4); AST(SGOT) 36 U/L (15-37); Alanine Aminotransfer ALT/SGPT 31 U/L (16-61); Albumin, Serum 3.3 g/dL (3.2-5.0); Alkaline Phosphatase 105 U/L (45-117); Anion Gap 7 (5-15); BNP,B-Type NATRIURETIC PEPTIDE 165.2 pg/mL (0-100); BUN 11 mg/dL (7-18); BUN/Creat Ratio 11.5 RATIO (10-20); Calcium,Total 8.5 mg/dL (8.5-10.1); Chloride 105 mmol/L (98-107); Creatinine, Serum 0.96 mg/dL (0.70-1.30); EST Glomerular Filtration Rate 82 mL/min (>60); Est Glom Filt Rate - Afr Amer 99 mL/min (>60); Glucose 99 mg/dL (74-106); Potassium 4.1 mmol/L (3.5-5.1); Protein, Total 6.3 g/dL (6.4-8.2); Sodium Level 142 mmol/L (136-145); Thyroid Stim Hormone (TSH) 1.58 uIU/mL (0.358-3.74)
[2018-09-18 15:10] LABS: M R Staph aureus DNA By PCR Negative (Negative); Probe Check PASS; Specimen Processing Control PASS; Staph aureus DNA By PCR NEGATIVE (Negative)
== END ==
PROVIDERS: Family Provider Internal Medicine; PCP Internal Medicine; Referring Provider Internal Medicine; Visit Provider Internal Medicine
DX: R06.02 Shortness of breath (principal); R53.1 Weakness; I10 Essential (primary) hypertension
CPT/HCPCS: 71046; 80053; 81001; 83880; 84443; 84484; 85025; 85379; 85652; 86140; 87086; 87088; 87640

== ENCOUNTER 2018-10-02 12:20 | Emergency (ER) | payer MEDICARE, OTHER, SELFPAY ==
[2018-09-24 14:18] VITALS: BMI 41.4
[2018-10-02 12:21] VITALS: BP 166/97; PULSE 98; TEMP 36.2; BMI 42.3
--- NOTE | 2018-10-02 12:35 | CT_ITS ---
STUDY: CT CERVICAL SPINE WITHOUT CONTRAST REASON FOR EXAM: Male, 73 years old. History of fall. Lung cancer. RADIATION DOSAGE (If Supplied By Facility): CTDIvol = ( 34.07 ) mGy, DLP = ( 725.34 ) mGycm TECHNIQUE: High resolution transaxial imaging was performed without contrast material. Sagittal and coronal images were reconstructed. Individualized dose optimization techniques were used for this CT. COMPARISON: None FINDINGS: Normal craniovertebral junction. There are degenerative changes of the anterior atlantoaxial articulation. Normal odontoid process. There is straightening of the normal cervical lordosis. Normal vertebral bodies and posterior osseous elements. C2-3: Normal endplates. Normal disc height and morphology. Normal central canal and intervertebral neuroforamina. C3-4: Normal endplates. Normal disc height and morphology. Normal central canal and intervertebral neuroforamina. C4-5: Mild degree of disc space narrowing. Facet joint osteoarthritis and hypertrophy worse on the right side. Uncovertebral arthrosis with moderate degree of right neural foraminal stenosis. C5-6: Marked degree of disc space narrowing and spondylosis. Uncovertebral arthrosis and bilateral neural foraminal stenosis worse on the right side. C6-7: Marked degree of disc space narrowing with spondylosis. Uncovertebral arthrosis. No significant neural foraminal stenosis is seen. Atherosclerotic plaques of the carotid arteries bilaterally. CT/Spine Cervical without Contras IMPRESSION: Multilevel degenerative changes, as described above. Electronically Signed: Navdeep Pacheco, at 13:16 EDT , Service support ,
--- NOTE | 2018-10-02 12:35 | CT_ITS ---
STUDY: CT BRAIN WITHOUT CONTRAST REASON FOR EXAM: Male, 73 years old. Head trauma secondary to a fall. Laceration overlying the right orbit. Patient has a history of lung cancer. RADIATION DOSAGE (If Supplied By Facility): CTDIvol = ( 44.99 ) mGy, DLP = ( 812.98 ) mGycm TECHNIQUE: Transaxial CT imaging of the brain was performed without administration of intravenous contrast material. Individualized dose optimization techniques were used for this CT. COMPARISON: Comparison is made with prior study dated May 29, 2012. FINDINGS: Small scalp hematoma overlying the right frontal bone. Normal calvarium. There is mild cerebral atrophy with widening of the extra-axial spaces and ventricular dilatation. There are areas of decreased attenuation within the white matter tracts of the supratentorial brain, consistent with microvascular disease changes. Normal basal ganglia and thalami. Normal brainstem. Normal cerebellum. There is no intracranial hemorrhage. There are no findings of an acute ischemic infarction. Normal visualized paranasal sinuses. CT/Brain/Head without Contrast IMPRESSION: Chronic involutional changes of the brain. Small scalp hematoma overlying the right frontal bone. Electronically Signed: Navdeep Pacheco, at 13:04 EDT , Service support ,
--- NOTE | 2018-10-02 12:37 | ED.DCSUM_ITS ---
- ER Visit Summary Date of Service: 10/02/18 Chief Complaint: Fall, head injury History of Present Illness: The patient is a 73 M who fell last night. He states his leg gave out. It was a mechanical fall. He denies any chest pain, dizziness or lightheadedness before or after. He did hit his head. His last tetanus is unknown. He sustained a laceration to the right forehead. He also has a little bit of neck pain and a little headache at this time. Physical Examination: Vital signs reviewed. Head exam reveals a 3 cm forehead laceration on the right lower forehead. His neck is mildly tender diffusely. Heart is regular. Lungs are clear. Abdomen soft. Extremities reveal no edema or trauma. His neurologic exam is normal and at baseline. Test Results: CAT scan of the head reveals chronic changes with a small right frontal scalp hematoma. CAT scan of the cervical spine reveals chronic degenerative changes Emergency Department Course and Treatment: The patient's tetanus was updated. His laceration was repaired with 6, 5?0 simple nylon sutures. He will have these out in 5 to 7 days. Patient will take Tylenol for pain at home. Treatment Plan: [] Disposition: Discharge Impression: Fall Right forehead laceration, 3 cm Laceration repair by ED physician This note was generated with [employer] dictation software. It may contain incorrect words, spelling, and punctuation that were not noted in review of the chart prior to signing ED Disposition - Plan for ED Patient: Referrals: Fany Hobson DO [Primary Care Provider] -
[2018-10-02 12:39] VITALS: RESP 16
[2018-10-02] MEDS: Diphth,Pertuss(Acell),Tet Vac 0.5 ML Vial IM (13:10)
--- NOTE | 2018-10-02 14:00 | ED.DEP ---
ED Disposition - Plan for ED Patient: Disposition: Home or Assisted Living Instructions: ED Mechanical Fall Referrals: Fany Hobson DO [Primary Care Provider] -
[2018-10-02 14:17] VITALS: BP 161/85; PULSE 81; RESP 16; O2SAT 94
== END 2018-10-02 14:26 | disposition home or self-care (01) ==
PROVIDERS: Emergency Provider Emergency Medicine; Family Provider Internal Medicine; PCP Internal Medicine
DX: S01.81XA Laceration without foreign body of other part of head, initial encounter (principal); R40.2410 Glasgow coma scale score 13-15, unspecified time; W19.XXXA Unspecified fall, initial encounter; Y93.9 Activity, unspecified; Y92.9 Unspecified place or not applicable; M54.2 Cervicalgia; R51 Headache; I25.10 Atherosclerotic heart disease of native coronary artery without angina pectoris; J44.9 Chronic obstructive pulmonary disease, unspecified; I10 Essential (primary) hypertension; E78.00 Pure hypercholesterolemia, unspecified; I48.91 Unspecified atrial fibrillation; G20 Parkinson's disease; Z79.82 Long term (current) use of aspirin; Z79.01 Long term (current) use of anticoagulants; Z79.899 Other long term (current) drug therapy
CPT/HCPCS: 12013; 70450; 72125; 90715; 99283

== ENCOUNTER → 2019-01-19 | Outpatient (CLI) | payer MEDICARE, OTHER, SELFPAY ==
[2018-10-20 13:14] VITALS: BMI 41.7
[2018-10-23 11:41] VITALS: BMI 41.7
--- NOTE | 2019-01-19 13:34 | CT_ITS ---
STUDY: CT ABDOMEN WITH CONTRAST REASON FOR EXAM: Male, 73 years old. Follow-up lung cancer RADIATION DOSAGE (If Supplied By Facility): CTDIvol = ( 23.87 ) mGy, DLP = ( 1919.05 ) mGycm TECHNIQUE: Transaxial images were obtained post I.V. administration of 100 IV Isovue 300, and without oral contrast. Sagittal and coronal images were reconstructed. Individualized dose optimization techniques were used for this CT. COMPARISON: April 07, 2017 CT scan as a part of the PET scan. FINDINGS: There is emphysematous change visualized lung bases. There coronary calcifications. There is decreased attenuation of the liver consistent with steatosis. Normal gallbladder and extrahepatic biliary system. Normal spleen. Normal pancreas. There is a stable right-sided adrenal mass measuring 5.4 x 4.1 x 4.8 cm. Stable since prior studies. There are foci of cortical thinning in the right kidney with lobulation without evidence of hydronephrosis. There is cortical thinning in the left kidney suggesting old infection or infarction. There are vascular calcifications. Normal visualized stomach. Normal small intestine. There is mild to moderate stool in the colon. There is visualized diverticulosis. The pelvis is out of the chcwz-up-eesy on the CT scan of the abdomen only. The appendix is visualized and appears normal. There is diffuse atherosclerotic calcification of the abdominal aorta with elongation and tortuosity, but without a demonstrated aneurysm. Normal inferior vena cava. Dense calcification of the bilateral common iliac arteries which is likely hemodynamically significant. There is a suggestion of a right-sided stent. The contrast level at this time time of this study is limited to evaluate the arterial structures. Normal abdominal wall. There are diffuse degenerative changes of the visualized lumbar spine. At the level of L3-L4 L4-L5 and L5-S1 there is moderate to severe neural foramina narrowing and moderate to severe central stenosis. There is a rudimentary disc at S1-S2. CT/Abdomen WITH IV Contrast IMPRESSION: Atypical appearing right adrenal mass stable since prior studies. Bilateral renal cortical thinning suggesting old infection or infarction. Hepatic steatosis. Atherosclerotic disease of the aorta. Degenerative change of the thoracolumbar spine. No visualized lytic or sclerotic lesions other than degenerative change. Electronically Signed: Anastasia Fonseca MD at 21:55 EDT Tel , Service support ,
--- NOTE | 2019-01-19 13:34 | CT_ITS ---
STUDY: CT CHEST WITH CONTRAST REASON FOR EXAM: Male, 73 years old. Lung Cancer, chemo and surgery. Prior heart stents and cabg RADIATION DOSAGE (If Supplied By Facility): CTDIvol = ( 23.87 ) mGy, DLP = ( 1919.05 ) mGycm TECHNIQUE: Transaxial imaging was performed following intravenous administration of 100 IV Isovue 300. Multiplanar coronal and sagittal images were reformatted. Individualized dose optimization techniques were used for this CT. COMPARISON: July 16, [address] chest with contrast FINDINGS: There is a right-sided Port-A-Cath. The tip is in the superior vena cava. Sternotomy wires are seen midline. There is a band of linear scarring in the left apex with punctate calcification. There is a pattern of emphysematous change in the lungs especially the upper lung zones. The lungs are overall somewhat hyperinflated. There is no demonstrated pleural abnormality. There is mild to moderate cardiac enlargement. There are dense coronary calcifications similar to prior study. Normal mediastinum. There is a stable focus of soft tissue density within the left hilum suggesting lymph node measuring 1.1 cm. Normal enhanced pulmonary arteries. There is atherosclerotic calcification of the aortic arch with tortuosity and elongation of the aortic arch and descending thoracic aorta. There are multi-level degenerative changes of the thoracic spine. Liver appears fatty infiltrated. There is an abnormal appearance of the right adrenal gland measuring 5.4 x 4.1 x 4.8 cm. On recent prior study it measured 5.4 x 4.0 x 4.6 cm. Study January 13, 2018 and measured 5.0 x 4.[address]/Chest WITH Contrast IMPRESSION: Pulmonary emphysema chronic obstructive pulmonary disease scarring left apex no evidence of new mass or focal consolidation. Port-A-Cath Status post sternotomy Coronary artery disease. Atypical appearing right adrenal mass larger than expected for an adenoma but stable since multiple prior studies. Electronically Signed: Anastasia Fonseca MD at 18:32 EDT Tel , Service support ,
[2019-01-20 08:14] LABS: CREATININE FINGERSTICK 0.87 mg/dL (0.70-1.30)
[2019-01-20 08:15] LABS: EGFR FINGERSTICK > 60 mL/min (>60)
== END | disposition home or self-care (01) ==
LOC: CT 13:33
PROVIDERS: Family Provider Internal Medicine; PCP Internal Medicine; Referring Provider Internal Medicine Hematology & Oncology; Visit Provider Internal Medicine Hematology & Oncology
DX: C34.12 Malignant neoplasm of upper lobe, left bronchus or lung (principal)
CPT/HCPCS: 36591; 71260; 74160; 80053; 82728; 83540; 83550; 85025; Q9967; A4216

== ENCOUNTER → 2019-02-25 12:40 | Outpatient (CLI) | payer MEDICARE, OTHER, SELFPAY ==
[2019-02-01 11:37] VITALS: BMI 42.5
--- NOTE | 2019-02-25 12:42 | CT_ITS ---
STUDY: CT ABDOMEN AND PELVIS WITHOUT CONTRAST REASON FOR EXAM: Male, 73 years old. Gross hematuria after having stem cell injection in the knees. History of lung cancer. RADIATION DOSAGE (If Supplied By Facility): CTDIvol = ( 33.60 ) mGy, DLP = ( 1687.41 ) mGycm TECHNIQUE: Transaxial images were obtained from the dome of the diaphragm to the symphysis pubis without oral contrast, and without intravenous contrast. Sagittal and coronal images were reconstructed. Individualized dose optimization techniques were used for this CT. COMPARISON: CT of the abdomen with contrast, July 16, 2018. FINDINGS: The visualized lung bases are unremarkable. The visualized portions of the heart are within normal limits. Normal liver. Normal gallbladder and extrahepatic biliary system. Normal spleen. Normal pancreas. There is a 5.4 x 3.8 4.1 cm heterogenous mass arising from the right adrenal gland. This has both small calcifications and focal areas of fat density. Normal left adrenal gland. The right kidney is of normal size and cortical thickness. There is no mass or renal calculi. There is no hydronephrosis. Normal visualized right ureter. There is cortical loss in the upper pole of the left kidney. There are vascular calcifications as well as a 4 mm upper pole calculus. There is no hydronephrosis. Normal left ureter. Normal visualized stomach. Normal small intestine. There is descending colonic diverticulosis without acute inflammatory change. The colon is otherwise unremarkable. The appendix is visualized and appears normal. There is diffuse atherosclerotic calcification of the abdominal aorta, without a demonstrated aneurysm. Normal inferior vena cava. Normal retroperitoneum. Normal urinary bladder. The prostate is normal in size. Normal seminal vesicles. No pelvic lymphadenopathy. No free air or free fluid is seen within the cavity. Normal abdominal wall. There are diffuse degenerative changes of the visualized lumbar spine. CT/Abdomen/Pelvis without Cont IMPRESSION: 1. Stable complex right adrenal mass. 2. Stable left kidney. 3. Diverticulosis without acute inflammatory change. 4. Atherosclerotic changes of the aorta and iliac arteries. 5. Degenerative changes of the lumbar spine. Electronically Signed: Timmy Joshua DO at 23:40 EDT Tel [phone], Service support ,
== END ==
PROVIDERS: Family Provider Internal Medicine; PCP Internal Medicine; Referring Provider Internal Medicine; Visit Provider Internal Medicine
DX: R31.9 Hematuria, unspecified (principal)
CPT/HCPCS: 74176

== ENCOUNTER 2019-03-08 15:00 | Outpatient (RCR) | payer MEDICARE, OTHER, SELFPAY ==
[2019-02-01 11:37] VITALS: BMI 42.5
--- NOTE | 2019-02-17 15:22 | HP.PTEVAL ---
Patient's Visit Information JV DURHAM Jr. is a 73 year old M referred to Physical Therapy by Swati Banerjee DO with a diagnosis of Knee OA. Date of Evaluation: 02/17/19 Physical Therapist: Titi Mayorga DPT, OCS, CSCS - Visit Plan Frequency: 3x /Week Duration: 4-6 Weeks Plan: Pt with multiple medical issue and should be monitorred. 3x/week x 3-6 weeks for strengtha dn stretching LE and core and postural ex adn calorie burning to tolerance and work to I. Pt has been on ex program in the past and will bring this list with him to review and go over next session including stationary bikenustep, LE strength UE adn postural and core strength. Pt has open wound on foot which keeps him from getting into the pool. - Subjective Findings: B knee pain. 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 Seeing foot doctor for that Dr. Chatman. Also has Parkinsons Disease. Uses cane to ambulate. Had lung Cancer that is cured right now. Garcias irregular heart beat and h/o open heart surgery adn stents in his legs. Has COPD adn uses oxygen at night. 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 Is supposed to stay local. Doctor wants him to exercise to help lose weight. Has leg bicycle at home adn some weights and has been given ex in the past to do 7 days per week 2x/day. Has bad knee pain from OA very arthritic adn extra weight does not help. Has lift to get to basement. Not employed. Sleep : OK mask tugh to sleep in. Hobbies: none , phone - Pain B knees Pain Intensity (Out of 10): 0 Pain Intensity Range: 0, 3 Comment: 0 at rst since stem cells, used walker prior. - Objective Varus evident B knees. Wide LUIGI with ambualtiona dn stance. Uses cane and needs it as he tends posterior in stance especially with ec. Steps are done using L and one rail and one cane. Stadning balance without cane is fair but ppor with eyes closed. Pt is obese and SOB /sweating with climbing 2 steps adn walking 150 feet. Knee and hip aROM WFL but max tight in HS and gastroc. R knee flexion to 100 adn L knee to 114. R knee lacks full extension by 5 degrees against gravity and 3 degrees passively with pain. Hip PROM OK and without pain, ankles aROM WFL and painfree. 4- inv and ev, DF 4/5 and PF 4-. 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 reflexes 0/3 in patella and achilles. - Balance Scores Functional Gait Assessment Score: 16 % Disability: 46.6700 - Goals Goal 1:: I approp HEP to help burn calories and limit future problems with knees. Goal Time Frame: 4-6 Weeks Goal 2:: Patient ambulate one lap HP without SOB Goal Time Frame: 4-6 Weeks Goal 3:: Patient report knee pain no greater than 1/10 adn intermittent Goal Time Frame: 4-6 Weeks - Rehabilitation Potential Physical Therapy Diagnosis: Knee OA and multiple medical problems limiting mobility adn health of tissue. Rehabilitation Potential: Questionable - Anticipated Interventions Patient/Client Instruction: Educate patient on: Condition, Plan of Care For the Purpose of:: To decrease pain, To improve muscle performance and motor function Therapeutic Exercise to Include: Strength training, Balance training, Postural training, Flexibilty training For the Purpose of:: To decrease pain, To increase tolerance to activity/condition/position, To improve ability of physical actions for home/community/work/leisure Thank you for the opportunity to evaluate your patient. For Medicare and Medicare HMO plans, please review the plan of care and approve it. It will need to be FAXED BACK to us at [phone] for Medicare purposes. For Medicare only, by signing this I certify the plan of care. Please let me know if there are questions or concerns regarding this plan of care. Physician Signature: Date:
--- NOTE | 2019-05-04 18:35 | HP.PT.NRP ---
HP - Discharge Summary (1) - Patient Information JV DURHAM Jr. was seen in my office for initial evaluation on 02/17/19. The following Plan of Care was established for this patient: Initial Frequency: 3x /Week Initial Duration: 4-6 Weeks - Anticipated Interventions Patient/Client Instruction: Educate patient on: Condition, Plan of Care For the Purpose of:: To decrease pain, To improve muscle performance and motor function Therapeutic Exercise to Include: Strength training, Balance training, Postural training, Flexibilty training For the Purpose of:: To decrease pain, To increase tolerance to activity/condition/position, To improve ability of physical actions for home/community/work/leisure This patient was last seen in our office 03/08/19. Pertinent comments regarding their Physical therapy will appear below: Pt seen 4 visits btu cancelled the rest as she was advised by doctor to stay off feet to help wound heal. She was to call after two weeks to reschedule but at this point, it has been almost two months adn I will discontinue due to nonattendance. At this point I will be discontinuing this patient from physical therapy. I would be happy to see this patient again in the future if found appropriate by the physician. Thank you! Titi Mayorga, DPT, OCS, CSCS
== END 2019-03-08 19:00 | disposition home or self-care (01) ==
LOC: PT 15:00
PROVIDERS: Family Provider Internal Medicine; PCP Internal Medicine; Visit Provider Internal Medicine
DX: M25.569 Pain in unspecified knee (principal); M17.10 Unilateral primary osteoarthritis, unspecified knee
CPT/HCPCS: 97110; 97162

== ENCOUNTER → 2019-04-13 | Outpatient (CLI) | payer MEDICARE, OTHER, SELFPAY ==
[2019-03-30 13:30] VITALS: BMI 44.0
[2019-04-13 19:44] LABS: M R Staph aureus DNA By PCR Negative (Negative); Probe Check PASS; Specimen Processing Control PASS
== END | disposition home or self-care (01) ==
LOC: LABSPEC 16:28
PROVIDERS: Family Provider Internal Medicine; PCP Internal Medicine; Referring Provider Internal Medicine; Visit Provider Internal Medicine
DX: Z86.14 Personal history of Methicillin resistant Staphylococcus aureus infection (principal)
CPT/HCPCS: 87641

== ENCOUNTER → 2019-05-03 12:24 | Outpatient (CLI) | payer MEDICARE, OTHER, SELFPAY ==
[2019-03-30 13:30] VITALS: BMI 44.0
== END ==
PROVIDERS: Family Provider Internal Medicine; PCP Internal Medicine; Referring Provider Internal Medicine Cardiovascular Disease; Visit Provider Internal Medicine Cardiovascular Disease
DX: R07.9 Chest pain, unspecified (principal); I25.10 Atherosclerotic heart disease of native coronary artery without angina pectoris; Z95.1 Presence of aortocoronary bypass graft; C34.12 Malignant neoplasm of upper lobe, left bronchus or lung
CPT/HCPCS: J7040; A4216

== ENCOUNTER → 2019-05-10 14:47 | Outpatient (CLI) | payer MEDICARE, OTHER, SELFPAY ==
[2019-05-05 14:06] VITALS: BMI 44.5
--- NOTE | 2019-05-10 14:52 | VDLE_ITS ---
Reason For Study: Swelling RIGHT LEFT GSV is normal. GSV is normal. CFV is compressible, spontaneous, phasic, CFV is compressible, spontaneous, phasic, competent and demonstrates normal competent, and demonstrates normal augmentation. augmentation. FV is compressible, spontaneous, phasic, FV is compressible, spontaneous, phasic, competent and demonstrates normal competent and demonstrates normal augmentation. augmentation. POP V is compressible, spontaneous, phasic, POP V is compressible, spontaneous, phasic, competent and demonstrates normal competent and demonstrates normal augmentation. augmentation. T/P Trunk is compressible. T/P Trunk is compressible. PTV is compressible. PTV is compressible. RT PerV is compressible. LT PerV is compressible. Unable to visualize Rt PTV and Rt PeroV prox Unable to visualize Lt PTV and Lt PeroV prox and mid due to patient body habitus and mid due to patient body habitus Hypoechoic, non vascular structure noted Rt Hypoechoic, non vascular structure noted Lt Pop Fossa measuring 1.86cm x 1.62cm. Pop Fossa measuring 1.47cm x 3.33cm. Procedure Exam performed in department. A preliminary report was called and/or faxed to Dr. Hobson. Interpretation Summary Deep veins of the lower extremities are bilaterally patent and compressible segmentally. There is no evidence of deep vein thrombosis on either side. Valvular competence appears intact within the proximal deep venous systems bilaterally. The great saphenous veins appear bilaterally patent and compressible segmentally. The proximal and mid-posterior tibial veins and peroneal veins were not visualized bilaterally due to the patient's body habitus. A non-vascular, hypoechoic structure is noted in the popliteal space bilaterally, with dimensions as documented above. These probably represent popliteal cysts. Clinical correlation is advised. Ordering Physician: Fany Hobson Referring Physician: Fany Hobson Performed By: Sumi Morris, MENDEZ, RVT
[2019-05-10 15:47] LABS: BNP,B-Type NATRIURETIC PEPTIDE 214.4 pg/mL (0-100)
== END ==
PROVIDERS: Family Provider Internal Medicine; PCP Internal Medicine; Referring Provider Internal Medicine; Visit Provider Internal Medicine
DX: R06.02 Shortness of breath (principal); M79.89 Other specified soft tissue disorders
CPT/HCPCS: 83880; 93970

== ENCOUNTER → 2019-05-19 05:48 | Outpatient (CLI) | payer MEDICARE, OTHER, SELFPAY ==
[2019-03-30 13:30] VITALS: BMI 44.0
[2019-05-05 14:06] VITALS: BMI 44.5
--- NOTE | 2019-05-19 17:07 | STRESSREP ---
Stress Test Report Pharmacologic myocardial perfusion stress test. 73-year-old man with a history of coronary artery disease. Status post coronary bypass surgery with a left internal mammary artery to the left anterior descending artery, saphenous vein graft to obtuse marginal branch, hypertension, hyperlipidemia. Stress protocol: Resting EKG demonstrates atrial fibrillation with a rate of 77 bpm frequent premature ventricular complexes are noted resting blood pressures 158/98 mmHg. 0.4 mg of regadenoson was infused per usual protocol followed Intravenous saline flush injection continuous EKG monitoring was performed. Patient maintained atrial fibrillation throughout the recording. Frequent premature ventricular complexes were noted which appeared to be multifocal in origin. The maximum heart rate attained was 117 bpm which was 79% of maximum predicted heart rate the maximum workload was 1 metabolic equivalent. At rest nonspecific ST-T wave changes were noted at peak infusion nonspecific ST-T wave changes were noted. Frequent premature ventricular complexes were noted the resting blood pressures 158/98 with a final blood pressure of 152/86. The peak blood pressure 162/80 mmHg. Myocardial perfusion protocol. 15.0 mCi of technetium 99m sestamibi was injected at rest. 0.4 mg of regadenoson was infused per usual protocol peak infusion 45.0 mCi of technetium 99m sestamibi was injected stress images were obtained stress and rest images were reconstructed and compared in the short axis vertical and horizontal long axis. Gated images were also obtained Perfusion SPECT analysis: Review of the stress images demonstrate normal uptake of tracer noted in all areas of the myocardium. The resting images similar demonstrate normal uptake of tracer noted in all areas of myocardium. No areas of reversibility are noted suggest ischemia no previous infarct is noted. Gated SPECT analysis: The gated ejection fraction is noted to be 42%. Conclusion: Normal pharmacologic myocardial perfusion stress test. Chronic atrial fibrillation. Mild cardiomyopathy present
== END ==
PROVIDERS: Family Provider Internal Medicine; PCP Internal Medicine; Referring Provider Internal Medicine Cardiovascular Disease; Visit Provider Internal Medicine Cardiovascular Disease
DX: I25.10 Atherosclerotic heart disease of native coronary artery without angina pectoris (principal); I27.21 Secondary pulmonary arterial hypertension; Z95.1 Presence of aortocoronary bypass graft; I48.20 Chronic atrial fibrillation, unspecified
CPT/HCPCS: 78452; 93017; A9500; A4216; J2785

== ENCOUNTER → 2019-06-07 09:21 | Outpatient (CLI) | payer MEDICARE, OTHER, SELFPAY ==
[2019-05-05 14:06] VITALS: BMI 44.5
--- NOTE | 2019-06-07 09:25 | RAD_ITS ---
STUDY: X-RAY - UNILATERAL RIBS ( LEFT ) WITH CHEST REASON FOR EXAM: Male, 73 years old. CHRONIC PAIN, NO RECENT INJURIES PER PT, HX LUNG CA TECHNIQUE - RIBS: 6 view(s) of the ribs. TECHNIQUE - CHEST: Single AP portable view of the chest. COMPARISON: None. FINDINGS - RIBS: Unremarkable visualized ribs without a demonstrated fracture. FINDINGS - CHEST: There is a right-sided chest port with the tip in the distal SVC. The lungs are clear and expanded. There is no demonstrated pleural abnormality. There are sutures projecting over the left lung apex. There is mild cardiac enlargement. Midline sternotomy wires noted. Normal mediastinum and yovanny. Normal visualized pulmonary arteries. Normal visualized aortic arch and descending thoracic aorta. Normal visualized thoracic spine. Normal visualized ribs, clavicles, and shoulders. There is no demonstrated abnormality of the visualized soft tissue structures of the upper abdomen. RAD/Ribs Uni Min 3V w/PA Chest IMPRESSION: RIBS: Unremarkable x-ray examination of the ribs with no acute fracture seen. CHEST: No acute cardiopulmonary disease. Electronically Signed: Rola Schneider MD at 1:59 EST , Service support ,
--- NOTE | 2019-06-07 09:26 | RAD_ITS ---
STUDY: X-RAY - RIGHT KNEE REASON FOR EXAM: Chronic pain, old fractures from accident. TECHNIQUE: 4 view(s) of the knee. COMPARISON: Radiographs 01/15/2017. FINDINGS: There is osteopenia. Normal visualized distal femur. There is chronic healed fracture deformity of the proximal tibial and fibular diaphyses without interval change. Normal proximal tibiofibular articulation. There is severe joint space loss of the medial femorotibial compartment. There is moderate joint space narrowing of the lateral femorotibial compartment. There are marginal osteophytes and moderate joint space narrowing of the patellofemoral articulation. There are intra-articular bodies. There is vascular calcification. RAD/Knee 4 or More Views IMPRESSION: Tricompartmental arthrosis with intra-articular bodies. Chronic healed fracture deformity of the proximal tibia and fibula. Electronically Signed: Alexis Scott MD at 15:32 EST Tel , Service support ,
== END ==
PROVIDERS: Family Provider Internal Medicine; PCP Internal Medicine; Referring Provider Internal Medicine; Visit Provider Internal Medicine
DX: M25.561 Pain in right knee (principal); R07.81 Pleurodynia
CPT/HCPCS: 71101; 73564

== ENCOUNTER 2019-07-12 08:55 | Inpatient (IN) | payer MEDICARE, OTHER, SELFPAY ==
[2019-05-05 14:06] VITALS: BMI 44.5
[2019-07-12] VITALS (15 sets, daily range): BP systolic 120–174; BP diastolic 50–98; PULSE 62–106; RESP 18–33; TEMP 36.3–39.9; O2SAT 92–100; BMI 43.0; BMI 44.6; BMI 44.7
--- NOTE | 2019-07-12 09:15 | EKG12_ITS ---
Test Reason : NEURO Blood Pressure : / mmHG Vent. Rate : 099 BPM Atrial Rate : 098 BPM P-R Int : 000 ms QRS Dur : 102 ms QT Int : 302 ms P-R-T Axes : 000 -76 081 degrees QTc Int : 387 ms Atrial fibrillation Left axis deviation Nonspecific ST and T wave abnormality Abnormal ECG Confirmed by CORTEZ CLEARY, ROGELIO ([id number]), assistant production editor DAVID FLOWER ([id number]) on 07/14/2019 1:41:40 PM Referred By: Confirmed By:ROGELIO TORO MD
--- NOTE | 2019-07-12 09:20 | RAD_ITS ---
STUDY: X-RAY CHEST REASON FOR EXAM: Male, 73 years old. PT LETHARGIC BUT ALERT AND ORIENTED. CURRENTLY BEING TREATED FOR UTI. PT ARRIVES WITH SLURRED SPEECH AND RIGHT SIDE FACIAL DROOP. TECHNIQUE: Single AP portable view of the chest. COMPARISON: September 18, 2018. FINDINGS: Right-sided Mediport catheter in position. Median sternotomy. CABG. Cardiomegaly. Mild congestion. Aortic calcification. Hazy airspace disease. Mild atelectasis/scarring. No significant pleural effusions. Osseous structures slightly demineralized with degenerative features. Normal upper abdomen. No pneumothorax. RAD/Chest 1 View (Portable) IMPRESSION: Mild vascular congestion Cardiomegaly and cardiac surgery Right Mediport catheter in position Electronically Signed: Titi Hartley DO at 10:03 EST Tel , Service support ,
[2019-07-12 09:21] LABS: Bedside Glucose 121 mg/dL (70-110)
--- NOTE | 2019-07-12 09:21 | ED.DCSUM_ITS ---
History of Present Illness Chief Complaint: Neuro S/Sx Informant: Patient, Significant Other Narrative: Patient arrives via EMS with fever and altered mental status. States that she came out of the bedroom this morning to find him sitting in the wheelchair. He was very lethargic. She states that little over a week ago he was diagnosed with a urinary tract infection and was placed on Cipro. He is to still taking Cipro. He had a fever yesterday and was eating less than normal but still ea ting. He has been incontinent of urine and she noted a foul smell from him like urine last night. EMS notes fever again today. Both the patient and his deny any significant rhinorrhea or cough. He states he does have a headache. He had a bowel movement during the night but no diarrhea. No rashes. Past Medical History - Allergies and Home Meds Allergies/Adverse Reactions: Allergies No Known Allergies Allergy (Verified 05/05/19 12:54) Primary Care Physician: Fany Hobson DO [Primary Care Provider] - Surgical History: coronary bypass surgery Smoking Status: Former smoker - Family History Maternal Family History: Family History (Last Reviewed 05/05/19 @ 12:54 by Dagmar Strickland) Sister Alcoholism Cancer Mother Arthritis Father Arthritis Brother Cancer Family History: Reports: No pertinent history Paternal Family History: Family History (Last Reviewed 05/05/19 @ 12:54 by aDgmar Strickland) Sister Alcoholism Cancer Mother Arthritis Father Arthritis Brother Cancer Family History: Reports: No pertinent history Review of Systems General: Reports: Chills, Fever, Malaise. Denies: Sweats Eyes: Denies: Visual changes - bilaterally, Diplopia ENT: Denies: Rhinorrhea, Sore throat Cardiovascular: Denies: Chest pain, Palpitations Respiratory: Denies: Dyspnea, Cough, Dyspnea on exertion Gastrointestinal: Denies: Abdominal pain, Nausea, Vomiting, Diarrhea, Melena, Hematochezia Genitourinary: Reports: - - See history of present illness. Denies: Dysuria, Hematuria, Frequency Musculoskeletal: Reports: Myalgias. Denies: Back pain, Extremity Pain Skin: Denies: Rash, Wounds Neurological: Reports: Headache. Denies: Weakness, Numbness Psych: Denies: Depression, Anxiety, Suicidal thoughts Endocrine: Denies: Polyuria, Polydipsia, Heat intolerance Hematologic: Reports: Easy bruising, Easy bleeding - On blood thinners Physical Exam Vital Signs/Narrative: Vital Signs Temp Pulse Resp BP Pulse Ox 07/12/19 09:20 106 H 33 H 138/98 H 93 07/12/19 08:57 102.6 F H 103 H 33 H 136/68 H 95 Inital Vital Signs reviewed: Yes General: Well nourished, Well developed, Obese, No Acute Distress Head: Normocephalic, Atraumatic Eyes: Perrl, EOMI ENT: No rhinorrhea, Dry mucous membranes Neck: Supple, Nontender Cardiovascular: Regular rate, No murmurs, Tachycardia Respiratory: No distress, CTA bilaterally, Chest nontender Abdomen: Soft, Nontender, Nondistended, Normal bowel sounds Back: Nontender, Normal Inspection Extremities: Nontender, Edema - bilateral symetric leg, - - chronic wound left great toe. Looks clinically well Skin: Normal color, No rash Neurological: Alert, Cranial nerves II-XII grossly intact, Normal Strength, Normal Sensation, Lethargic Diagnostic/Tx/Re-eval - Rhythm Strip Rhythm Strip: A-fib Rate: 99 - Medical Decision Making Patient received Tylenol and IV fluids. White count is elevated at 18. Troponin is elevated at 0.14. EKG is A. fib with no concerning features of ACS. Troponin most likely related to demand ischemia. Lactic acid is normal. Creatinine 1.68. Urine shows bacteria and white cells still. He received Rocephin after blood cultures and urine cultures were obtained. We will continue to work on bringing his fever down. Plan is admission. ED Disposition - Plan for ED Patient: Disposition: Psychiatric Hospital or Unit Diagnosis: UTI (urinary tract infection), Sepsis, NSTEMI (non-ST elevated myocardial infarction), Acute kidney injury Referrals: Fany Hobson DO [Primary Care Provider] -
[2019-07-12 09:28] LABS: Absolute Lymphocyte Count 0.23 X10^3/uL (0.83-4.51); Absolute Neutrophil Count 17.4 X10^3/uL (2.0-7.7); Basophil# 0.04 X10^3/uL; Basophil% 0.2 % (0-1); Eosinophil# 0.01 X10^3/uL; Eosinophils% 0.1 % (0-5); Hematocrit 45.2 % (40-54); Hemoglobin 14.8 g/dL (13.0-16.5); Lymphocyte # 0.23 X10^3/ul (4.0); Lymphocyte % 1.2 % (19-41); Mean Corp Hgb Conc 32.7 g/dL (32-36); Mean Corpuscular Hgb 31.1 pg (27.0-32.0); Mean Platelet Vol. 10.6 fl (6.2-12.0); Monocyte# 1.03 X10^3/uL; Monocyte% 5.5 % (0-10); NRBC Flagged by Analyzer 0 % (0-5); Neutrophil # 17.42 X10^3/uL (2.7-7.7); Neutrophil % 92.6 % (47-70); POSITIVE DIFFERENTIAL YES; Platelet Count 177 K/mm3 (150-450); RBC Distribution Width SD 56.4 fl (35.1-43.9); Red Blood Count 4.76 M/mm3 (4.6-6.2); White Blood Count 18.8 K/mm3 (4.4-11.0)
[2019-07-12 09:31] LABS: Differential Indicated SCAN CRITERIA MET
[2019-07-12] MEDS: 0.9% Normal Saline 1,000 ML 999 ML IV ×2 (09:38→10:57)
[2019-07-12 09:40] LABS: Prothrombin Time (Protime)PT. 13.1 SECONDS (11.7-14.9)
[2019-07-12] MEDS: Acetaminophen 500 MG Tablet 1000 MG PO (09:40)
[2019-07-12 09:41] LABS: Partial Thromboplast Time 26.1 Seconds (24.1-36.2)
[2019-07-12 09:44] LABS: Platelet Estimate ADEQUATE (ADEQ); Red Cell Morphology NORM C+C NORMAL (NORM C&C)
[2019-07-12 09:48] LABS: Mucous, Urine 0 SEEN /hpf (<or=2+); Squamous Epithelial Cells - UA 0 SEEN /hpf (0-5)
[2019-07-12 09:49] LABS: ALB/GLOB Ratio 0.8 RATIO (0.9-2.4); AST(SGOT) 24 U/L (15-37); Alanine Aminotransfer ALT/SGPT 18 U/L (16-61); Alkaline Phosphatase 78 U/L (45-117); Anion Gap 6 (5-15); BUN 21 mg/dL (7-18); BUN/Creat Ratio 12.5 RATIO (10-20); Calcium,Total 9.1 mg/dL (8.5-10.1); Chloride 99 mmol/L (98-107); Creatinine, Serum 1.68 mg/dL (0.70-1.30); EST Glomerular Filtration Rate 43 mL/min (>60); Est Glom Filt Rate - Afr Amer 52 mL/min (>60); Estimated Creatinine Clearance 40.43 ml/min; Globulin 3.9 g/dL (2.2-4.2); Glucose 155 mg/dL (74-106); Potassium 3.8 mmol/L (3.5-5.1); Protein, Total 6.9 g/dL (6.4-8.2); Sodium Level 133 mmol/L (136-145)
[2019-07-12 09:52] LABS: Color, Urine Yellow (Yellow); Glucose, Dipstick Normal (Normal); Ketone-Dipstick 5 mg/dl (Negative); Leukocyte Esterase-Dipstick 500 /ul (Negative); Nitrite-Dipstick Negative (Negative); Occult Blood-Urine 250 /ul (Negative); Protein-Dipstick 100 mg/dl (Negative); Specific Gravity, Urine 1.015 (1.002-1.030); Urine Bilirubin Dipstick Negative (Negative); Urine Clarity Cloudy (Clear); Urine Urobilinogen 1 mg/dl (Normal)
[2019-07-12 09:56] LABS: Lactic Acid 1.2 mmol/L (0.4-1.9)
[2019-07-12 09:58] LABS: Bacteria 3+ /hpf (None Seen); Red Blood Cells-Urine 0-5 SEEN /hpf (0-5); White Blood Cells 5-10 SEEN /hpf (0-5)
[2019-07-12] MEDS: 0.9% Normal Saline 1,000 ML 150 ML IV ×3 (10:50→19:56)
[2019-07-12] MEDS: Ceftriaxone 1 GM/50 ML BAG IV (10:50)
[2019-07-12] MEDS: Ketorolac 15 MG/ML Vial IV (10:50)
--- NOTE | 2019-07-12 10:55 | NURSING ---
DR EBONI DOVE
--- NOTE | 2019-07-12 11:05 | PCM.HP.STD ---
Problem List (1) UTI (urinary tract infection) Status: Acute (2) NSTEMI (non-ST elevated myocardial infarction) Status: Inactive (3) Sepsis Status: Acute (4) Acute kidney injury Status: Acute (5) Status post insertion of iliac artery stent Status: Chronic Comment: Bilateral iliac artery stents 08/04/12 (6) Iron deficiency anemia due to chronic blood loss Status: Chronic Comment: Gastric AVMs, September 2017 (7) Chronic atrial fibrillation Status: Chronic (8) History of cardioversion Status: Chronic (9) Secondary pulmonary arterial hypertension Status: Chronic (10) Atherosclerosis of coronary artery of [place] heart without angina pectoris Status: Chronic Qualifiers: Coronary Disease-Associated Artery/Lesion type: [place] artery Qualified Code(s): I25.10 - Atherosclerotic heart disease of [place] coronary artery without angina pectoris Comment: CABG x 2 HERRERA-LAD, SVG-OM 02/14/2006 [id number] anastomosis-LAD w/ Taxus 2.75 x 8 mm and POBA-PDA 12/23/2006 (11) H/O coronary artery bypass surgery Status: Chronic Comment: CABG x 2 HERRERA-LAD, SVG-OM 02/14/[address] Fei Castillo, [facility] (12) 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 Status: Chronic (13) Alcohol dependence Status: Chronic (14) GERD (gastroesophageal reflux disease) Status: Chronic (15) HEBER (obstructive sleep apnea) Status: Chronic (16) Benign essential hypertension Status: Chronic History of Present Illness Date of Admission: 07/12/19 Chief Complaint: Altered mental status The patient is a 73 year old M [multiple comorbidities including Parkinson's disease, coronary artery disease, history of lung cancer currently in remission diabetes mellitus type 2 who was brought to the emergency department with altered mental status. Per patient's who provided much of the history patient had apparently not been feeling well complaining of headache the day prior. Also had a low-grade temperature. On the morning of patient's admission found patient to be incoherent and somewhat lethargic. The EMS squad was called patient was found to be febrile, lethargic and incoherent. Of note patient had recently been treated for UTI as outpatient with Cipro. In the emergency department and assessment of sepsis secondary to UTI was made. Patient was also found to have acute impaired kidney function. Started on antibiotics and IV fluids and admitted to a monitored bed for further management. Past Medical History Past Medical History (Chronic Problems): Chronic Problems (Last Reviewed 05/05/19 @ 13:59 by Dagmar Strickland) Status post insertion of iliac artery stent (Chronic ~08/04/12) Bilateral iliac artery stents 08/04/12 Iron deficiency anemia due to chronic blood loss (Chronic) Gastric AVMs, September 2017 Chronic atrial fibrillation (Chronic) History of cardioversion (Chronic 12/2016) Secondary pulmonary arterial hypertension (Chronic) Atherosclerosis of coronary artery of [place] heart without angina pectoris (Chronic) CABG x 2 HERRERA-LAD, SVG-OM 02/14/2006 [id number] anastomosis-LAD w/ Taxus 2.75 x 8 mm and POBA-PDA 12/23/2006 H/O coronary artery bypass surgery (Chronic 02/14/06) CABG x 2 HERRERA-LAD, SVG-OM 02/14/[address] Fei Castillo, [facility] 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 (Chronic) Alcohol dependence (Chronic) GERD (gastroesophageal reflux disease) (Chronic) HEBER (obstructive sleep apnea) (Chronic) Benign essential hypertension (Chronic) Medical History: Medical History (Last Reviewed 07/12/19 @ 12:28 by Ezio Kaufman MD) Chronic atrial fibrillation (Chronic) I48.2 Secondary pulmonary arterial hypertension (Chronic) I27.21 Atherosclerosis of coronary artery of [place] heart without angina pectoris (Chronic) I25.10 CABG x 2 HERRERA-LAD, SVG-OM 02/14/2006 [id number]-[id number] anastomosis-LAD w/ Taxus 2.75 x 8 mm and POBA-PDA 12/23/2006 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 (Chronic) C34.12 Alcohol dependence (Chronic) F10.20 GERD (gastroesophageal reflux disease) (Chronic) K21.9 HEBER (obstructive sleep apnea) (Chronic) G47.33 Benign essential hypertension (Chronic) I10 Adenocarcinoma of lung, stage 1 C34.90 Gastric AVM Q27.33 Cancer of upper lobe of left lung C34.12 Dementia F03.90 Essential tremor G25.0 GI bleed K92.2 tsferred to [facility], transfused with 2 units PRBC's. Parkinsons G20 Allergies No Known Allergies Allergy (Verified 05/05/19 12:54) Home Medications: Ambulatory Orders Medication Instructions Recorded Folic Acid 1 mg PO DAILY@1200 05/06/13 Duloxetine HCl 60 mg PO QHS 12/04/16 Pramipexole Di-HCl [Mirapex] 0.5 mg PO TID 12/04/16 aspirin 81 mg tablet,delayed 81 mg PO DAILY 10/06/17 release docusate sodium 100 mg capsule 100 mg PO BID cap 10/20/17 gabapentin 600 mg tablet 1,200 mg PO QHS tab 10/20/17 Multivit-Min/Iron Fum/Folic AC 1 ea PO BID 12/22/17 [Yoepj-Walybrm-Xiclrlrx Tablet] Omeprazole 20 mg PO QHS 12/22/17 metoprolol tartrate 50 mg tablet 50 mg PO DAILY@2200 #90 tab 07/09/18 Potassium Chloride [Klor-Con 10] 10 meq PO DAILY 10/02/18 losartan 50 mg tablet 50 mg PO BID #180 tab 11/16/18 rivaroxaban 10 mg tablet 10 mg PO DAILY #90 tab 11/17/18 fenofibrate nanocrystallized 145 145 mg PO LUNCH #90 tab 11/27/18 mg tablet digoxin 250 mcg (0.25 mg) tablet 250 mcg PO DAILY #90 tab 01/15/19 Ferrous Sulfate [Iron] 65 mg PO DAILY 02/01/19 pravastatin 40 mg tablet 40 mg PO DAILY #90 tab 03/18/19 cholecalciferol (vitamin D3) 125 5,000 unit PO DAILY 03/30/19 mcg (5,000 unit) capsule Oxygen, Home [Home Oxygen] 2 - 4 lpm NASAL QHS 05/05/19 furosemide 40 mg tablet 40 mg PO BID #180 tab 05/10/19 Cyanocobalamin [Vitamin B12] 1,000 mcg IM Q30D 07/12/19 Lactobacillus Acidophilus PO DAILY 07/12/19 [Acidophilus] Metformin HCl [Metformin HCl ER] 500 mg PO DAILY PRN PRN 07/12/19 Tamsulosin HCl [Flomax] 0.4 mg PO QHS 07/12/19 Surgical History: Surgical History (Last Reviewed 07/12/19 @ 12:28 by Ezio Kaufman MD) History of cardioversion (Chronic) Onset Date: 12/2016 Z98.890 H/O coronary artery bypass surgery (Chronic) Onset Date: 02/14/06 Z95.1 CABG x 2 HERRERA-LAD, SVG-OM 02/14/[address] Fei Castillo, [facility] History of hammer toe correction Z98.890, Z87.39 bilateral History of lobectomy of lung Z90.2 left History of open reduction and internal fixation (ORIF) procedure Z98.890 right History of open reduction and internal fixation (ORIF) procedure Z98.890 right elbow with nerve transplant History of tonsillectomy and adenoidectomy Z98.890 Status post surgical removal of neoplasm of skin Z98.890 right side of neck/jaw Surgical History: coronary bypass surgery Psychiatric History: No pertinent psych hx Smoking Status: Former smoker - *Family History Maternal Family History: Family History (Last Reviewed 07/12/19 @ 12:28 by Ezio Kaufman MD) Sister Alcoholism Cancer Mother Arthritis Father Arthritis Brother Cancer History Items: No pertinent history Paternal Family History: Family History (Last Reviewed 07/12/19 @ 12:28 by Ezio Kaufman MD) Sister Alcoholism Cancer Mother Arthritis Father Arthritis Brother Cancer History Items: No pertinent history Review of Systems Unable to obtain accurate/complete ROS d/t: Patient's incoherence VTE Information - Inpt Only VTE Present on Admission: No VTE Mechan Device Prophylaxis: None VTE Pharm Prophylaxis ordered?: Yes Patient Problems: Active and Suspected Problems (Last Reviewed 05/05/19 @ 13:59 by Dagmar Strickland) UTI (urinary tract infection) (Acute) Sepsis (Acute) Acute kidney injury (Acute) Objective: GENERAL: Ill looking, lethargic but arousable HEENT: Atraumatic; EYES; Anicteric, Normal Conjunctiva NECK; supple, normal thyroid, RESPIRATORY: Diminished to auscultation CARDIOVASCULAR: Irregular S1 S2, GI: soft, normoactive bowel sounds, : No Renal angle tenderness; EXTREMITIES: bipedal edema MUSCULOSKELETAL: no muscle waisting NEURO: lethargic but arousable SKIN: No Rash PSYCH; Flat affect - Physical Exam Vitals/I&O's: Vital Signs Temp Pulse Resp BP Pulse Ox 103.0 F H 92 29 H 123/56 H 92 07/12/19 10:58 07/12/19 10:58 07/12/19 10:58 07/12/19 10:58 07/12/19 10:58 Oxygen Flow Rate (L/min) 2 Oxygen Delivery Method Nasal Cannula Weight: 136.08 kg Body Mass Index (BMI) 43.0 Finger Stick Blood Glucose 121 Intake and Output for Last 24 Hours 07/10/19 07/11/19 07/12/19 23:59 23:59 23:59 Intake Total 1000 / 1000 Balance 1000 / 1000 Microbiology Past 72 Hours 07/12/19 09:30 Mucosa - Nose Influenza Types A,B Direct FA (GENO) - Final Laboratory Results 07/12/19 09:09: POC Glucose 121 H 07/12/19 09:10: WBC 18.8 H, RBC 4.76, Hgb 14.8, Hct 45.2, MCV 95.0 H, MCH 31.1, MCHC 32.7, RDW Std Deviation 56.4 H, RDW Coeff of Iram 16.0 H, Plt Count 177, MPV 10.6, Immature Gran % (Auto) 0.400, Neut % (Auto) 92.6 H, Lymph % (Auto) 1.2 L, Power % (Auto) 5.5, Eos % (Auto) 0.1, Baso % (Auto) 0.2, Absolute Neuts (auto) 17.4 H, Absolute Lymphs (auto) 0.23 L, Nucleated RBC % 0, Platelet Estimate ADEQUATE, RBC Morphology NORM C+C 07/12/19 09:10: PT 13.1, INR 1.0, APTT 26.1 07/12/19 09:10: Sodium 133 L, Potassium 3.8, Chloride 99, Carbon Dioxide 28.0, Anion Gap 6, BUN 21 H, Creatinine 1.68 H, Estim Creat Clear Calc 40.43, Est GFR (MDRD) Af Amer 52 L, Est GFR (MDRD) Non-Af 43 L, BUN/Creatinine Ratio 12.5, Glucose 155 H, Calcium 9.1, Total Bilirubin 1.80 H, AST 24, ALT 18, Alkaline Phosphatase 78, Troponin I 0.143 H, Total Protein 6.9, Albumin 3.0 L, Globulin 3.9, Albumin/Globulin Ratio 0.8 L 07/12/19 09:10: Lactic Acid 1.2 07/12/19 09:40: Urine Color Yellow, Urine Clarity Cloudy, Urine pH 6.0, Ur Specific [place] 1.015, Urine Protein 100 H, Urine Glucose (UA) Normal, Urine Ketones 5 H, Urine Occult Blood 250 H, Urine Nitrite Negative, Urine Bilirubin Negative, Urine Urobilinogen 1 H, Ur Leukocyte Esterase 500 H, Urine RBC 0-5 SEEN, Urine WBC 5-10 SEEN, Ur Squamous Epith Cells 0 SEEN, Urine Bacteria 3+, Urine Mucus 0 SEEN Current Medications Sodium Chloride () 1,000 mls @ 150 mls/hr IV .Q6H40M NATALIE Last Admin: 07/12/19 10:50 Dose: 150 mls/hr Documented by: Sodium Chloride () 1,000 mls @ 999 mls/hr IV .Q1H1M ONE Stop: 07/12/19 11:49 Last Admin: 07/12/19 10:57 Dose: 999 mls/hr Documented by: Assessment/Plan All Active Problems (Last Reviewed 05/05/19 @ 13:59 by Dagmar Strickland) UTI (urinary tract infection) (Acute) Sepsis (Acute) Acute kidney injury (Acute) The patient is a 73 year old M [multiple comorbidities including Parkinson's disease, coronary artery disease, history of lung cancer currently in remission diabetes mellitus type 2 who was brought to the emergency department with altered mental status. In the emergency department and assessment of sepsis secondary to UTI was made. 1. Sepsis secondary to acute cystitis ?Patient admitted to a monitored bed, lactic acid on admission was 1.2, cultures (both urine and blood) were obtained in the ED patient started on Rocephin with plans adjust antibiotic therapy based on culture result 2. Acute metabolic encephalopathy ?Secondary to sepsis management as discussed above 3. Elevated troponin ?Patient presentation not consistent with acute coronary syndrome do suspect acute non-STEMI secondary to sepsis with demand ischemia. Admitted to monitored bed for continuous telemetry monitoring ordered serial cardiac enzymes 4. Diabetes mellitus type II ~Controlled/uncontrolled, patient's oral hypoglycemics held. Placed on long acting insulin, Accu-Cheks a.c. and at bedtime and covered with sliding scale insulin 4. Peripheral arterial disease - with history of Bilateral iliac artery stents 08/04/12 6. Coronary artery disease with previous CABG and subsequent stent placement 7. Lung CA?adenocarcinoma ?Involving the left upper lung lobe; Patient was treated with left upper lobe wedge resection with subsequent chemotherapy. Patient follows up with oncology as outpatient 8. A. fib ?Rate controlled on systemic anticoagulation with Xarelto did continue 9. Chronic anemia ?Patient has history of gastric AVMs, H&H with plans to transfuse if patient becomes symptomatic or hemoglobin falls below 7 10. Morbid obesity with BMI of 44.7 ?Weight loss advised 11. Obstructive sleep apnea 12. DVT prophylaxis ?Patient is on Xarelto Advance planning; did discuss with the patient and regarding advanced directives as well as CODE STATUS. Did explain the various scenarios involved ( FULL CODE, DNR CCA, DNR CCA with no intubation, and DNR CC and what each meant) patient and both opted for patient to remain full code with intubation and CPR if needed . Order was placed. Time spent on discussion 18 minutes. Code Visit Inpatient E&M: 76377 Subs Hosp L3 Procedures: 96750 Advncd Care Plan 30 Min
--- NOTE | 2019-07-12 11:07 | NURSING ---
126 UTI, AFIB, DELVIS KITTOKristine
--- NOTE | 2019-07-12 11:21 | US_ITS ---
STUDY: RENAL ULTRASOUND - COMPLETE REASON FOR EXAM: Male, 73 years old. DELVIS TECHNIQUE: Ultrasound evaluation of the kidneys was performed with real-time and static dolan-scale imaging. COMPARISON: Comparison is made with prior ultrasound the kidneys dated August 11, 2014. FINDINGS: RIGHT KIDNEY: Normal location of the right kidney, which is normal in size. The right kidney measures 11.9 cm x 7 cm x 6 cm. There is a normal cortex of the right kidney. The renal cortex measures 1.8 cm. There is no right renal mass or cyst. There are no right renal calculi. There is no right hydronephrosis. DISTAL RIGHT URETER: There is non-visualization of the distal right ureter. There is no demonstrated right ureterovesical junction calculus. There is no demonstrated right ureteral jet. LEFT KIDNEY: Normal location of the left kidney, which is normal in size. The left kidney measures 12.3 cm x 5.4 cm x 5.4 cm. There is a normal cortex of the left kidney. The renal cortex measures 1.6 cm. There is no left renal mass or cyst. There are no left renal calculi. There is no left hydronephrosis. DISTAL LEFT URETER: There is non-visualization of the distal left ureter. There is no demonstrated left ureterovesical junction calculus. There is no demonstrated left ureteral jet. BLADDER: A Savage catheter is seen within the urinary bladder. There is evidence of a 4.5 cm x 3.5 cm x 3.6 cm inhomogeneous soft tissue mass involving the right adrenal gland. This was seen on prior CT scan of the abdomen dated February 25, 2019. US/Kidney and Bladder IMPRESSION: Normal ultrasound of the kidneys. Right adrenal mass. Electronically Signed: Navdeep Pacheco, at 15:29 EST , Service support ,
[2019-07-12 12:55] LABS: Bedside Glucose 151 mg/dL (70-110)
[2019-07-12] MEDS: Docusate Sodium 100 MG Capsule PO ×2 (13:33→21:23)
[2019-07-12] MEDS: Folic Acid 1 MG Tablet PO (13:34)
[2019-07-12] MEDS: Pramipexole Di-HCl 0.5 MG Tablet PO ×2 (13:34→21:21)
[2019-07-12] MEDS: 0.9% Saline Lock 10 ML Syringe IV (15:21)
[2019-07-12 16:45] LABS: Bedside Glucose 128 mg/dL (70-110)
[2019-07-12] MEDS: Glucerna Shake 120 ML LIQUID PO (17:39)
[2019-07-12] MEDS: Pantoprazole Sodium 20 MG Tablet PO (17:39)
[2019-07-12] MEDS: Losartan Potassium 50 MG Tablet PO (21:21)
[2019-07-12] MEDS: Metoprolol Tartrate 50 MG Tablet PO (21:22)
[2019-07-12] MEDS: Gabapentin 600 MG Tablet 1200 MG PO (21:22)
[2019-07-12] MEDS: DULoxetine Hcl 60 MG Capsule PO (21:23)
[2019-07-12 21:30] LABS: Bedside Glucose 93 mg/dL (70-110)
[2019-07-13] VITALS (15 sets, daily range): BP systolic 129–176; BP diastolic 58–96; PULSE 71–107; RESP 18–30; TEMP 36.6–36.9; O2SAT 92–96
[2019-07-13] MEDS: 0.9% Normal Saline 1,000 ML 150 ML IV (02:43)
[2019-07-13] MEDS: 0.9% Saline Lock 10 ML Syringe IV ×4 (04:56→17:41)
[2019-07-13 05:09] LABS: Absolute Lymphocyte Count 0.54 X10^3/uL (0.83-4.51); Absolute Neutrophil Count 12.3 X10^3/uL (2.0-7.7); Basophil# 0.03 X10^3/uL; Basophil% 0.2 % (0-1); Hematocrit 43.8 % (40-54); Hemoglobin 14.3 g/dL (13.0-16.5); Lymphocyte # 0.54 X10^3/ul (4.0); Mean Corp Hgb Conc 32.6 g/dL (32-36); Mean Corpuscular Hgb 31.3 pg (27.0-32.0); Mean Corpuscular Volume 95.8 fL (80-94); Mean Platelet Vol. 10.7 fl (6.2-12.0); Monocyte# 0.59 X10^3/uL; Monocyte% 4.4 % (0-10); NRBC Flagged by Analyzer 0 % (0-5); POSITIVE DIFFERENTIAL YES; Platelet Count 166 K/mm3 (150-450); RBC Distribution Width SD 56.5 fl (35.1-43.9); Red Blood Count 4.57 M/mm3 (4.6-6.2); White Blood Count 13.5 K/mm3 (4.4-11.0)
[2019-07-13 05:14] LABS: Differential Indicated SCAN CRITERIA MET
[2019-07-13 05:22] LABS: Anion Gap 6 (5-15); BUN 28 mg/dL (7-18); BUN/Creat Ratio 14.9 RATIO (10-20); Calcium,Total 8.4 mg/dL (8.5-10.1); Chloride 104 mmol/L (98-107); Creatinine, Serum 1.88 mg/dL (0.70-1.30); EST Glomerular Filtration Rate 38 mL/min (>60); Est Glom Filt Rate - Afr Amer 45 mL/min (>60); Estimated Creatinine Clearance 36.13 ml/min; Glucose 166 mg/dL (74-106); Potassium 3.9 mmol/L (3.5-5.1); Sodium Level 137 mmol/L (136-145)
[2019-07-13] MEDS: Albuterol 2.5 MG/3 ML VIAL.NEB. INHALATION (05:53)
[2019-07-13 06:35] LABS: Bedside Glucose 157 mg/dL (70-110)
[2019-07-13] MEDS: Pramipexole Di-HCl 0.5 MG Tablet PO ×3 (06:37→21:22)
[2019-07-13] MEDS: Insulin Lispro 100 UNIT/ML INSULN.PEN SC ×2 (06:37→11:42)
[2019-07-13] MEDS: Losartan Potassium 50 MG Tablet PO (10:20)
[2019-07-13] MEDS: Aspirin E.C. 81 MG Tablet PO (10:20)
[2019-07-13] MEDS: Digoxin 250 MCG Tablet PO (10:20)
[2019-07-13] MEDS: Ferrous Sulfate 325 MG Tablet PO (10:20)
[2019-07-13] MEDS: Glucerna Shake 120 ML LIQUID PO (10:20)
[2019-07-13] MEDS: Multivitamins,Ther W-Minerals Tablet 1 TABLET PO (10:20)
[2019-07-13] MEDS: Pravastatin 40 MG Tablet PO (10:21)
[2019-07-13] MEDS: Ceftriaxone 1 GM/50 ML BAG IV (10:21)
[2019-07-13] MEDS: Rivaroxaban 10 MG Tablet PO (10:21)
--- NOTE | 2019-07-13 10:52 | EKG12_ITS ---
Test Reason : Blood Pressure : / mmHG Vent. Rate : 083 BPM Atrial Rate : 250 BPM P-R Int : 000 ms QRS Dur : 096 ms QT Int : 326 ms P-R-T Axes : 000 -39 175 degrees QTc Int : 383 ms Atrial fibrillation Left axis deviation ST & T wave abnormality, consider anterior ischemia Abnormal ECG When compared with ECG of 12-JUL-2019 09:33, MANUAL COMPARISON REQUIRED, DATA IS UNCONFIRMED Confirmed by RAHUL GERMAIN ([id number]), assignment desk editor HODA CRABTREE ([id number]) on 07/15/2019 10:45:02 AM Referred By: EBONI Confirmed By:RAHUL GERMAIN
--- NOTE | 2019-07-13 10:54 | ECHOD_ITS ---
Reason For Study: CHF Procedure This was a 2D Doppler, Color Flow transthoracic echocardiogram. The study was technically difficult. Exam performed portable in patient room. Left Ventricle D shaped septum in systole and diastole. Based upon the 2D echocardiographic images obtained there appears to be grossly normal left ventricular size with borderline low global left ventricular systolic dysfunction. The estimated ejection fraction is 50 %. Septal motion consistent with IVCD. Unable to assess diastolic dysfunction. Right Ventricle Moderately dilated right ventricle. Moderate global right ventricular systolic dysfunction. Atria The left atrium is moderately enlarged. The right atrium is moderately enlarged. No doppler evidence for ASD. Mitral Valve There is no mitral annular calcification. Normal mitral valve. Mild (1+) mitral valve insufficiency. Tricuspid Valve Normal tricuspid valve. Moderately severe (3+) tricuspid valve insufficiency. Right ventricular systolic pressure estimated to be 73 mmHg. Aortic Valve Trisinus/trileaflet aortic valve. Mild focal aortic valve thickening. Mild focal aortic valve calcification. Pulmonic Valve The pulmonic valve is not well visualized. Mild-Moderate (1-2+) pulmonic valve insufficiency. Great Vessels Normal sized aortic root. Pericardium/Pleural No pericardial effusion. Medication Definity deferred due to elevated PAP. MMode/2D Measurements & Calculations LVIDd: 4.9 cm IVSd: 1.2 cm Ao root diam: 3.5 cm LVIDs: 4.2 cm LVPWd: 1.2 cm RVDd: 5.2 cm FS: 15.1 % LAV(MOD-bp): 99.4 ml LA A4 area: 29.4 cm2 LA dimension(2D): 5.5 cm LAV(MOD-bp) Indexed: 39.5 ml/m2 LAV(MOD-sp2): 86.6 ml LAV(MOD-sp4): 98.7 ml RA A4 area: 25.9 cm2 Doppler Measurements & Calculations Ao V2 max: 146.9 cm/sec LV V1 max: 92.5 cm/sec PA V2 max: 117.8 cm/sec Ao max P.7 mmHg LV V1 max P.4 mmHg PI end-d sanjuana: 154.4 cm/sec TR max sanjuana: 402.3 cm/sec TR max P.8 mmHg Interpretation Summary The study was technically difficult. Based upon the 2D echocardiographic images obtained there appears to be grossly normal left ventricular size with borderline low global left ventricular systolic dysfunction. The estimated ejection fraction is 50 %. Septal motion consistent with IVCD. D shaped septum in systole and diastole. Moderately dilated right ventricle. Moderate global right ventricular systolic dysfunction. The left atrium is moderately enlarged. The right atrium is moderately enlarged. Mild (1+) mitral valve insufficiency. Moderately severe (3+) tricuspid valve insufficiency. Mild-Moderate (1-2+) pulmonic valve insufficiency. Right ventricular systolic pressure estimated to be 73 mmHg compatible with pulmonary hypertension. Unable to assess diastolic dysfunction. Ordering Physician: Irving Beckham Referring Physician: GLORIA ALVARADO Performed By: Nkechi Sandoval, RDCS, RVT
[2019-07-13] MEDS: Furosemide 100 MG/10 ML Vial 80 MG IV (11:27)
[2019-07-13] MEDS: Folic Acid 1 MG Tablet PO (11:43)
[2019-07-13] MEDS: Docusate Sodium 100 MG Capsule PO ×2 (11:43→21:22)
[2019-07-13 11:50] LABS: Allen Test POS; Base Excess -1 mmol/L (-2 to +2); Bicarbonate 22.8 mmol/L (22-26); Blood Gas Specimen Type ART; O2 Delivery Device Nasal Can; PO2 102 mmHG (75-100); SITE R Radial; SO2 98 % (95-99); Time Given 1140; Total Carbon Dioxide 24 mmol/L; pCO2 34.3 mmHg (35-45); pH 7.43 (7.35-7.45)
--- NOTE | 2019-07-13 11:58 | CASEMGMT ---
RN CM Assessment Introduced role of RN CM to patient and patient Ellen at bedside.?Patient sitting up in chair at bedside receiving care from other staff. Patient and agreed to speak with this CM, most information obtained from Ellen. Patient is alert, oriented and able?to participate in RN CM Assessment. ?Care providers, pharmacy, and demographics verified. Presentation: AMS, OWOD, Low grade Temp. H/o Parkinson Dz, CAD, Lung CA- in remission, DM2 Admit Dx: UTI, Afib, DELVIS Re-Admit: No Barriers/Issues: None. Does receive care through the [facility] and gets a check up every 6 months, states has a PCP there but cannot recall name. PCP: Fany Hobson Specialists: Cardio- Dr Garcia, Pulm- Dr Salazar, Neuro- Dr Davis, Nephro- just started and thinks through [facility] but cannot recall name Preferred Pharmacy: [facility] Insurance: [employer] A[employer], S for life (Patient wishes to remain admitted here and not transfer to [facility]) Rx Benefit:?Yes, [employer] ?LNOK: Ellen Haney LW/HPOA: Has completed both with Primary HPOA- Ellen Haney but states LW done in 1997 and would like to re-complete HPOA and LW. Aaliyah- MARCO ANTONIO made aware Living Arrangements:? Lives with in a SSH, 3 steps to enter home that are spaced out ADL?s: Ambulates with a Rollator, Independent with ADLs but per dressing has become more difficult for him and takes awhile so she will help him out Transportation: Both patient and drive. Patient does not drive at night. DME: Rollator, manual WC- sits in it but does not use, CPAP with O2 bled 3L at night-[facility]. Portable O2 tanks, Concentrator, Nebulizer. HHC: Past, Cannot recall agency- per liked the agency and has papers at home and can get name. HHC list provided and RNCM to f/u with choice if additional therapy recommended. SNF: None Goal: Home with possible HH PT if additional therapy recommended. If additional O2 needs change- current with [facility]. Denies any issues, concerns, needs or questions with DC planning at this time. Aware CM remains available for any emerging needs. DC PLAN: Home with possible HH PT and O2 order change with [facility]. Nilda Saravia, FLORIDACM
[2019-07-13 12:06] LABS: Bedside Glucose 168 mg/dL (70-110)
--- NOTE | 2019-07-13 12:50 | PN_ITS ---
<Irving Beckham - Last Filed: 07/13/19 12:50> Patient Problems: Active and Suspected Problems (Last Reviewed 07/12/19 @ 12:28 by Ezio Kaufman MD) UTI (urinary tract infection) (Acute) Sepsis (Acute) Acute kidney injury (Acute) Reason for Visit: UTI, SOB Subjective: Pt resting upright in bed, somewhat dyspneic. Dry cough. Increased LE edema. Has urinary incontinence. Was having blood in urine but he has not noticed any today. He has a hx of UTI. He denies hx of urinary retention, self cath. He has chills. Vitals/I&O's: Vital Signs Temp Pulse Resp BP Pulse Ox 97.8 F 84 28 H 157/70 H 96 07/13/19 11:25 07/13/19 11:25 07/13/19 11:25 07/13/19 11:25 07/13/19 11:25 Oxygen Flow Rate (L/min) 2 Oxygen Delivery Method Nasal Cannula Weight: 311 lb 8.211 oz Body Mass Index (BMI) 44.6 Finger Stick Blood Glucose 121 Intake and Output for Last 24 Hours 07/11/19 07/12/19 07/13/19 23:59 23:59 23:59 Intake Total 4042.5 / 4042.5 1062.5 / 1062.5 Output Total 400 / 400 400 / 400 Balance 3642.5 / 3642.5 662.5 / 662.5 General: Alert, Oriented x3, Cooperative HEENT: Atraumatic, PERRLA, EOMI, Normocephalic Neck: Supple, No JVD, Negative Carotid Bruits Lungs: Diminished, Rales Cardiovascular: Regular rate, No murmurs Abdomen: Bowel Sounds Present, Soft, Non Tender Extremities: Capillary Refill Less than 3 Seconds, Edema - 3+ pitting edema BLE Skin: No rashes, No breakdown Musculoskeletal: No Tenderness to Palpation of Joints or Extremities Neurological: Cranial nerves II-XII grossly intact Psych/Mental Status: Normal Affect, Appropriate, Alert and oriented to time, place, person, mood and affect Microbiology Past 72 Hours 07/12/19 09:40 Urine Catheter - Savage Urine Culture - Preliminary Presumptive E. 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 fleet mechanic 07/12/19 09:50 Blood Culture (Wb) - Anticubital Right Blood Culture - Preliminary 07/12/19 09:30 Mucosa - Nose Influenza Types A,B Direct FA (GENO) - Final Laboratory Results 07/12/19 12:50: Troponin I 0.237 H 07/12/19 12:52: POC Glucose 151 H 07/12/19 15:15: Troponin I 0.211 H 07/12/19 16:36: POC Glucose 128 H 07/12/19 21:09: POC Glucose 93 07/13/19 04:50: WBC 13.5 H, RBC 4.57 L, Hgb 14.3, Hct 43.8, MCV 95.8 H, MCH 31.3, MCHC 32.6, RDW Std Deviation 56.5 H, RDW Coeff of Iram 16.0 H, Plt Count 166, MPV 10.7, Immature Gran % (Auto) 0.400, Neut % (Auto) 91.0 H, Lymph % (Auto) 4.0 L, [place] % (Auto) 4.4, Eos % (Auto) 0.0, Baso % (Auto) 0.2, Absolute Neuts (auto) 12.3 H, Absolute Lymphs (auto) 0.54 L, Nucleated RBC % 0, Differential Comment 07/13/19 04:50: Sodium 137, Potassium 3.9, Chloride 104, Carbon Dioxide 27.0, Anion Gap 6, BUN 28 H, Creatinine 1.88 H, Estim Creat Clear Calc 36.13, Est GFR (MDRD) Af Amer 45 L, Est GFR (MDRD) Non-Af 38 L, BUN/Creatinine Ratio 14.9, Glucose 166 H, Calcium 8.4 L 07/13/19 06:32: POC Glucose 157 H 07/13/19 11:36: POC Glucose 168 H 07/13/19 11:48: Specimen Type ART, Sample Site R Radial, pH 7.43, Bicarbonate Actual 22.8, POC Total CO2 24, Base Excess -1, O2 Saturation 98, ABG pCO2 34.3 L , ABG pO2 102 H, John Test POS, O2 Delivery Device Nasal Can, Liter Flow 3.0, Blood Gas Notified Whom HOSP , Blood Gas Notified Time 1140 Current Medications Acetaminophen (Tylenol) 650 mg PO Q6H PRN PRN PRN Reason: Pain Score 1-3/Temp > 100.7 F Al Hydroxide/Mg Hydroxide (Mylanta Ii) 30 ml PO Q6H PRN PRN PRN Reason: Gastric Burning Albuterol Sulfate (Ventolin Aerosols) 2.5 mg INHALATION Q4H.RT PRN PRN Reason: SHORTNESS OF BREATH Last Admin: 07/13/19 05:53 Dose: 2.5 mg Documented by: Aspirin (Ecotrin) 81 mg PO DAILY@0800 [facility] Last Admin: 07/13/19 10:20 Dose: 81 mg Documented by: Cholecalciferol (Vitamin D) 5,000 unit PO DAILY [facility] Last Admin: 07/13/19 10:21 Dose: 5,000 unit Documented by: Digoxin (Lanoxin) 250 mcg PO DAILY [facility] Last Admin: 07/13/19 10:20 Dose: 250 mcg Documented by: Docusate Sodium (Colace) 100 mg PO BID@1200,2200 [facility] Last Admin: 07/13/19 11:43 Dose: 100 mg Documented by: Duloxetine HCl (Cymbalta) 60 mg PO QHS [facility] Last Admin: 07/12/19 21:23 Dose: 60 mg Documented by: Ferrous Sulfate (Ferrous Sulfate) 325 mg PO DAILY@0800 [facility] Last Admin: 07/13/19 10:20 Dose: 325 mg Documented by: Folic Acid (Folic Acid) 1 mg PO DAILY@1200 [facility] Last Admin: 07/13/19 11:43 Dose: 1 mg Documented by: Gabapentin (Neurontin) 1,200 mg PO QHS [facility] Last Admin: 07/12/19 21:22 Dose: 1,200 mg Documented by: Glucagon () 1 mg IM .X1 PRN PRN Reason: Hypoglycemia Ceftriaxone Sodium (Rocephin) 1 gm in 50 mls @ 100 mls/hr IV Q24 [facility] Last Infusion: 07/13/19 10:51 Dose: Infused Documented by: Sodium Chloride () 250 mls @ 15 mls/hr IV .[id number] PRN PRN Reason: Saline Flush Insulin Human Lispro (Humalog Kwikpen (Bkc)) 0 unit SC ACHS [facility]; Protocol Last Admin: 07/13/19 11:42 Dose: 2 u Documented by: Losartan Potassium (Cozaar) 50 mg PO BID [facility] Last Admin: 07/13/19 10:20 Dose: 50 mg Documented by: Melatonin (Melatonin) 3 mg PO QHS PRN PRN PRN Reason: INSOMNIA Metoprolol Tartrate (Lopressor (Beta Taisha)) 50 mg PO DAILY@2200 [facility] Last Admin: 07/12/19 21:22 Dose: 50 mg Documented by: Multivitamins/Minerals (Multivitamin With Minerals) 1 tablet PO DAILY@0800 [facility] Last Admin: 07/13/19 10:20 Dose: 1 tablet Documented by: Nitroglycerin (Nitrostat) 0.4 mg SUBLINGUAL Q5M PRN PRN Reason: CARDIAC/CHEST PAIN Nutritional Formula (Lactose Free) (Glucerna Shake) 120 ml PO TIDCM [facility] Last Admin: 07/13/19 11:43 Dose: Not Given Documented by: Ondansetron HCl (Zofran) 4 mg IV Q8H PRN PRN PRN Reason: NAUSEA/VOMITING Oxycodone HCl (Oxyir) 5 mg PO Q4H PRN PRN PRN Reason: Pain Score 4-5/10 Pantoprazole Sodium (Protonix) 20 mg PO DAILY@1700 [facility] Last Admin: 07/12/19 17:39 Dose: 20 mg Documented by: Potassium Chloride (K-Dur) 10 meq PO DAILY@0800 [facility] Last Admin: 07/13/19 10:20 Dose: 10 meq Documented by: Pramipexole Dihydrochloride (Mirapex) 0.5 mg PO TID [facility] Last Admin: 07/13/19 06:37 Dose: 0.5 mg Documented by: Pravastatin Sodium (Pravachol) 40 mg PO DAILY [facility] Last Admin: 07/13/19 10:21 Dose: 40 mg Documented by: Promethazine HCl (Phenergan) 25 mg IM Q6H PRN PRN PRN Reason: Breakthrough Nausea/Vomiting Rivaroxaban (Xarelto) 10 mg PO DAILY [facility] Last Admin: 07/13/19 10:21 Dose: 10 mg Documented by: Sodium Chloride () 10 - 40 ml IV UD PRN PRN Reason: SALINE FLUSH Last Admin: 07/13/19 11:28 Dose: 10 ml Documented by: Tamsulosin HCl (Flomax) 0.4 mg PO QHS [facility] STROKE Vital Signs/Narrative: Vital Signs Temp Pulse Resp BP Pulse Ox 07/13/19 11:25 97.8 F 84 28 H 157/70 H 96 07/13/19 10:16 97.8 F 78 30 H 173/75 H 95 Medical Necessity - Tobacco Use Smoking Status: Former smoker Assessment/Plan All Active Problems (Last Reviewed 07/12/19 @ 12:28 by Ezio Kaufman MD) UTI (urinary tract infection) (Acute) Sepsis (Acute) Acute kidney injury (Acute) 1. Acute sepsis 2/2 acute cystitis - continue rocephin. Follow cultures. Check post void residual. resume flomax. WBCs improved. Afebrile. 2. Acute metabolic encephalopathy 2/2 #1 - resolved 3. Elevated troponin - unclear etiology. may be due to increased workload 2/2 CHF and DELVIS. No acute changes on EKG. 4. DELVIS - monitor with lasix. mass on renal US. Hold losartan, metformin. 5. Acute heart failure unclear etiology - check echo, lasix started, jayne wrap legs, fluid restrict, measure I/O 6. CAD - prior CABG. continue aspirin, metoprolol, statin. hold losartan 7. DMt2 with morbid obesity - relatively well controlled at this point. hold metformin. continue SSI. 8. A fib - rate stable. Continue digoxin but will need monitoring of renal function. Continue metoprolol 9. Lung CA - adenocarcinoma, with chronic hypoxic respiratory failure - follows with oncology. will need f/u regarding renal mass. 10. Chronic anemia - Hgb normal. hx AVMs. On xarelto. continue iron. DVT ppx: xarelto DC planning: PTOT This patient was seen by Irving Beckham PA-C under the supervision of Dr. Kaufman. <Ezio Kaufman - Last Filed: 07/13/19 16:09> Vitals/I&O's: Vital Signs Temp Pulse Resp BP Pulse Ox 98.4 F 77 28 H 157/58 H 96 07/13/19 15:20 07/13/19 15:20 07/13/19 15:20 07/13/19 15:20 07/13/19 15:20 Oxygen Flow Rate (L/min) 1 Oxygen Delivery Method Nasal Cannula Weight: 141.3 kg Body Mass Index (BMI) 44.6 Finger Stick Blood Glucose 121 Intake and Output for Last 24 Hours 07/11/19 07/12/19 07/13/19 23:59 23:59 23:59 Intake Total 4042.5 / 4042.5 1062.5 / 1062.5 Output Total 400 / 400 400 / 400 Balance 3642.5 / 3642.5 662.5 / 662.5 Microbiology Past 72 Hours 07/12/19 09:40 Urine Catheter - Savage Urine Culture - Preliminary Presumptive E. 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 fleet mechanic 07/12/19 09:50 Blood Culture (Wb) - Anticubital Right Blood Culture - Preliminary 07/12/19 09:30 Mucosa - Nose Influenza Types A,B Direct FA (GENO) - Final Laboratory Results 07/12/19 15:15: Troponin I 0.211 H 07/12/19 16:36: POC Glucose 128 H 07/12/19 21:09: POC Glucose 93 07/13/19 04:50: WBC 13.5 H, RBC 4.57 L, Hgb 14.3, Hct 43.8, MCV 95.8 H, MCH 31.3, MCHC 32.6, RDW Std Deviation 56.5 H, RDW Coeff of Iram 16.0 H, Plt Count 166, MPV 10.7, Immature Gran % (Auto) 0.400, Neut % (Auto) 91.0 H, Lymph % (Auto) 4.0 L, [place] % (Auto) 4.4, Eos % (Auto) 0.0, Baso % (Auto) 0.2, Absolute Neuts (auto) 12.3 H, Absolute Lymphs (auto) 0.54 L, Nucleated RBC % 0, Differential Comment 07/13/19 04:50: Sodium 137, Potassium 3.9, Chloride 104, Carbon Dioxide 27.0, Anion Gap 6, BUN 28 H, Creatinine 1.88 H, Estim Creat Clear Calc 36.13, Est GFR (MDRD) Af Amer 45 L, Est GFR (MDRD) Non-Af 38 L, BUN/Creatinine Ratio 14.9, Glucose 166 H, Calcium 8.4 L 07/13/19 06:32: POC Glucose 157 H 07/13/19 11:36: POC Glucose 168 H 07/13/19 11:48: Specimen Type ART, Sample Site R Radial, pH 7.43, Bicarbonate Actual 22.8, POC Total CO2 24, Base Excess -1, O2 Saturation 98, ABG pCO2 34.3 L , ABG pO2 102 H, John Test POS, O2 Delivery Device Nasal Can, Liter Flow 3.0, Blood Gas Notified Whom TR CLEARY, Blood Gas Notified Time 1140 07/13/19 15:20: Ur Random Sodium 64 07/13/19 15:44: Urine Creatinine 22.70 Current Medications Acetaminophen (Tylenol) 650 mg PO Q6H PRN PRN PRN Reason: Pain Score 1-3/Temp > 100.7 F Al Hydroxide/Mg Hydroxide (Mylanta Ii) 30 ml PO Q6H PRN PRN PRN Reason: Gastric Burning Albuterol Sulfate (Ventolin Aerosols) 2.5 mg INHALATION Q4H.RT PRN PRN Reason: SHORTNESS OF BREATH Last Admin: 07/13/19 05:53 Dose: 2.5 mg Documented by: Aspirin (Ecotrin) 81 mg PO DAILY@0800 [facility] Last Admin: 07/13/19 10:20 Dose: 81 mg Documented by: Cholecalciferol (Vitamin D) 5,000 unit PO DAILY [facility] Last Admin: 07/13/19 10:21 Dose: 5,000 unit Documented by: Digoxin (Lanoxin) 250 mcg PO DAILY [facility] Last Admin: 07/13/19 10:20 Dose: 250 mcg Documented by: Docusate Sodium (Colace) 100 mg PO BID@1200,2200 [facility] Last Admin: 07/13/19 11:43 Dose: 100 mg Documented by: Duloxetine HCl (Cymbalta) 60 mg PO QHS [facility] Last Admin: 07/12/19 21:23 Dose: 60 mg Documented by: Ferrous Sulfate (Ferrous Sulfate) 325 mg PO DAILY@0800 [facility] Last Admin: 07/13/19 10:20 Dose: 325 mg Documented by: Folic Acid (Folic Acid) 1 mg PO DAILY@1200 [facility] Last Admin: 07/13/19 11:43 Dose: 1 mg Documented by: Furosemide (Lasix) 40 mg IV BID@1000,1800 [facility] Gabapentin (Neurontin) 1,200 mg PO QHS [facility] Last Admin: 07/12/19 21:22 Dose: 1,200 mg Documented by: Glucagon () 1 mg IM .X1 PRN PRN Reason: Hypoglycemia Ceftriaxone Sodium (Rocephin) 1 gm in 50 mls @ 100 mls/hr IV Q24 [facility] Last Infusion: 07/13/19 10:51 Dose: Infused Documented by: Sodium Chloride () 250 mls @ 15 mls/hr IV .[id number] PRN PRN Reason: Saline Flush Insulin Human Lispro (Humalog Kwikpen (Bkc)) 0 unit SC ACHS [facility]; Protocol Last Admin: 07/13/19 11:42 Dose: 2 u Documented by: Melatonin (Melatonin) 3 mg PO QHS PRN PRN PRN Reason: INSOMNIA Metoprolol Tartrate (Lopressor (Beta Taisha)) 50 mg PO DAILY@2200 [facility] Last Admin: 07/12/19 21:22 Dose: 50 mg Documented by: Multivitamins/Minerals (Multivitamin With Minerals) 1 tablet PO DAILY@0800 [facility] Last Admin: 07/13/19 10:20 Dose: 1 tablet Documented by: Nitroglycerin (Nitrostat) 0.4 mg SUBLINGUAL Q5M PRN PRN Reason: CARDIAC/CHEST PAIN Nutritional Formula (Lactose Free) (Glucerna Shake) 120 ml PO TIDCM [facility] Last Admin: 07/13/19 11:43 Dose: Not Given Documented by: Ondansetron HCl (Zofran) 4 mg IV Q8H PRN PRN PRN Reason: NAUSEA/VOMITING Oxycodone HCl (Oxyir) 5 mg PO Q4H PRN PRN PRN Reason: Pain Score 4-5/10 Pantoprazole Sodium (Protonix) 20 mg PO DAILY@1700 [facility] Last Admin: 07/12/19 17:39 Dose: 20 mg Documented by: Potassium Chloride (K-Dur) 10 meq PO DAILY@0800 [facility] Last Admin: 07/13/19 10:20 Dose: 10 meq Documented by: Pramipexole Dihydrochloride (Mirapex) 0.5 mg PO TID [facility] Last Admin: 07/13/19 14:38 Dose: 0.5 mg Documented by: Pravastatin Sodium (Pravachol) 40 mg PO DAILY [facility] Last Admin: 07/13/19 10:21 Dose: 40 mg Documented by: Promethazine HCl (Phenergan) 25 mg IM Q6H PRN PRN PRN Reason: Breakthrough Nausea/Vomiting Rivaroxaban (Xarelto) 10 mg PO DAILY [facility] Last Admin: 07/13/19 10:21 Dose: 10 mg Documented by: Sodium Chloride () 10 - 40 ml IV UD PRN PRN Reason: SALINE FLUSH Last Admin: 07/13/19 11:28 Dose: 10 ml Documented by: Tamsulosin HCl (Flomax) 0.4 mg PO QHS [facility] Vital Signs/Narrative: Vital Signs Temp Pulse Resp BP Pulse Ox 07/13/19 15:20 98.4 F 77 28 H 157/58 H 96 07/13/19 14:59 79 07/13/19 13:21 97.9 F 71 30 H 150/64 H 94 Assessment/Plan This patient was seen in conjunction with Irving Beckham PA-C . I have independently interviewed and examined the patient and reviewed pertinent historical, laboratory, and other data. Please refer to Irving Beckham PA-C note for details of this patient's presentation, findings, and recommendations. I have reviewed Irving Beckham PA-C note and concur with documented findings. The patient is a 73 year old M [multiple comorbidities including Parkinson's disease, coronary artery disease, history of lung cancer currently in remission diabetes mellitus type 2 who was brought to the emergency department with altered mental status. In the emergency department and assessment of sepsis secondary to UTI was made. ?Patient seen breathing significantly labored. Patient IV fluids discontinued and order was given for patient to receive Lasix please on supplemental oxygen titrated to keep saturation greater than 90. With patient worsening kidney function consult was placed to nephrology ?Urine cultures so far positive for E. coli blood cultures growing gram-negative rods. Physical Examination: GENERAL: Dyspneic at rest HEENT: Atraumatic; EYES; Anicteric, Normal Conjunctiva NECK; supple, normal thyroid, RESPIRATORY: Diminished to auscultation CARDIOVASCULAR: Irregular S1 S2, GI: soft, normoactive bowel sounds, : No Renal angle tenderness; EXTREMITIES: bipedal edema MUSCULOSKELETAL: no muscle waisting NEURO: lethargic but arousable SKIN: No Rash PSYCH; Flat affect Assessment: 1. Sepsis secondary to acute cystitis with E. coli 2. Acute metabolic encephalopathy ?Secondary to sepsis management as discussed above 3. Acute congestive heart failure with preserved ejection fraction 4. Diabetes mellitus type II 5. Elevated troponin secondary to demand ischemia 6. Coronary artery disease with previous CABG and subsequent stent placement 7. Lung CA?adenocarcinoma?Involving the left upper lung lobe; 8. Chronic A. fib 9. Chronic anemia?Patient has history of gastric AVMs, 10. Peripheral arterial disease - with history of Bilateral iliac artery stents 08/04/12 11. Morbid obesity with BMI of 44.7 12. Obstructive sleep apnea 12. DVT prophylaxis?Patient is on Xarelto Recommendations: 1. I have discussed the results of my overview and impressions with the patient 2. Options for management were reviewed Code Visit Inpatient E&M: 31236 Subs Hosp L3
--- NOTE | 2019-07-13 14:07 | CON.PCM_ITS ---
Problem List (1) Acute kidney injury Status: Acute Consultation - Renal 07/13/19 PCP/ Referring MD: Requesting physician: Dr Kaufman Primary care physician: Fany Hobson DO Reason for Consultation:: DELVIS - History of Present Illness History of Present Illness: The patient is a 73 year old M who presented to hospital with hematuria - a week ago, spontaneously resolved after getting abx, recurred yesterday with dark colored urine fever, chills myalgias fr last 2 days no history of kidney disease. no nSAIDS - Allergies Allergies: Allergies No Known Allergies Allergy (Verified 05/05/19 12:54) - Current Medications Current Medications: Current Medications Acetaminophen (Tylenol) 650 mg PO Q6H PRN PRN PRN Reason: Pain Score 1-3/Temp > 100.7 F Al Hydroxide/Mg Hydroxide (Mylanta Ii) 30 ml PO Q6H PRN PRN PRN Reason: Gastric Burning Albuterol Sulfate (Ventolin Aerosols) 2.5 mg INHALATION Q4H.RT PRN PRN Reason: SHORTNESS OF BREATH Last Admin: 07/13/19 05:53 Dose: 2.5 mg Documented by: Aspirin (Ecotrin) 81 mg PO DAILY@0800 [facility] Last Admin: 07/13/19 10:20 Dose: 81 mg Documented by: Cholecalciferol (Vitamin D) 5,000 unit PO DAILY [facility] Last Admin: 07/13/19 10:21 Dose: 5,000 unit Documented by: Digoxin (Lanoxin) 250 mcg PO DAILY [facility] Last Admin: 07/13/19 10:20 Dose: 250 mcg Documented by: Docusate Sodium (Colace) 100 mg PO BID@1200,2200 [facility] Last Admin: 07/13/19 11:43 Dose: 100 mg Documented by: Duloxetine HCl (Cymbalta) 60 mg PO QHS [facility] Last Admin: 07/12/19 21:23 Dose: 60 mg Documented by: Ferrous Sulfate (Ferrous Sulfate) 325 mg PO DAILY@0800 [facility] Last Admin: 07/13/19 10:20 Dose: 325 mg Documented by: Folic Acid (Folic Acid) 1 mg PO DAILY@1200 [facility] Last Admin: 07/13/19 11:43 Dose: 1 mg Documented by: Gabapentin (Neurontin) 1,200 mg PO QHS [facility] Last Admin: 07/12/19 21:22 Dose: 1,200 mg Documented by: Glucagon () 1 mg IM .X1 PRN PRN Reason: Hypoglycemia Ceftriaxone Sodium (Rocephin) 1 gm in 50 mls @ 100 mls/hr IV Q24 [facility] Last Infusion: 07/13/19 10:51 Dose: Infused Documented by: Sodium Chloride () 250 mls @ 15 mls/hr IV .[id number] PRN PRN Reason: Saline Flush Insulin Human Lispro (Humalog Kwikpen (Bkc)) 0 unit SC ACHS [facility]; Protocol Last Admin: 07/13/19 11:42 Dose: 2 u Documented by: Melatonin (Melatonin) 3 mg PO QHS PRN PRN PRN Reason: INSOMNIA Metoprolol Tartrate (Lopressor (Beta Taisha)) 50 mg PO DAILY@2200 [facility] Last Admin: 07/12/19 21:22 Dose: 50 mg Documented by: Multivitamins/Minerals (Multivitamin With Minerals) 1 tablet PO DAILY@0800 [facility] Last Admin: 07/13/19 10:20 Dose: 1 tablet Documented by: Nitroglycerin (Nitrostat) 0.4 mg SUBLINGUAL Q5M PRN PRN Reason: CARDIAC/CHEST PAIN Nutritional Formula (Lactose Free) (Glucerna Shake) 120 ml PO TIDCM [facility] Last Admin: 07/13/19 11:43 Dose: Not Given Documented by: Ondansetron HCl (Zofran) 4 mg IV Q8H PRN PRN PRN Reason: NAUSEA/VOMITING Oxycodone HCl (Oxyir) 5 mg PO Q4H PRN PRN PRN Reason: Pain Score 4-5/10 Pantoprazole Sodium (Protonix) 20 mg PO DAILY@1700 [facility] Last Admin: 07/12/19 17:39 Dose: 20 mg Documented by: Potassium Chloride (K-Dur) 10 meq PO DAILY@0800 [facility] Last Admin: 07/13/19 10:20 Dose: 10 meq Documented by: Pramipexole Dihydrochloride (Mirapex) 0.5 mg PO TID [facility] Last Admin: 07/13/19 06:37 Dose: 0.5 mg Documented by: Pravastatin Sodium (Pravachol) 40 mg PO DAILY [facility] Last Admin: 07/13/19 10:21 Dose: 40 mg Documented by: Promethazine HCl (Phenergan) 25 mg IM Q6H PRN PRN PRN Reason: Breakthrough Nausea/Vomiting Rivaroxaban (Xarelto) 10 mg PO DAILY [facility] Last Admin: 07/13/19 10:21 Dose: 10 mg Documented by: Sodium Chloride () 10 - 40 ml IV UD PRN PRN Reason: SALINE FLUSH Last Admin: 07/13/19 11:28 Dose: 10 ml Documented by: Tamsulosin HCl (Flomax) 0.4 mg PO QHS [facility] - Past Medical History Past Medical History (Chronic Problems): Chronic Problems (Last Reviewed 07/12/19 @ 12:28 by Ezio Kaufman MD) Status post insertion of iliac artery stent (Chronic ~08/04/12) Bilateral iliac artery stents 08/04/12 Iron deficiency anemia due to chronic blood loss (Chronic) Gastric AVMs, September 2017 Chronic atrial fibrillation (Chronic) History of cardioversion (Chronic 12/2016) Secondary pulmonary arterial hypertension (Chronic) Atherosclerosis of coronary artery of [place] heart without angina pectoris (Chronic) CABG x 2 HERRERA-LAD, SVG-OM 02/14/2006 [id number] anastomosis-LAD w/ Taxus 2.75 x 8 mm and POBA-PDA 12/23/2006 H/O coronary artery bypass surgery (Chronic 02/14/06) CABG x 2 HERRERA-LAD, SVG-OM 02/14/[address] Fei Castillo, [facility] 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 (Chronic) Alcohol dependence (Chronic) GERD (gastroesophageal reflux disease) (Chronic) HEBER (obstructive sleep apnea) (Chronic) Benign essential hypertension (Chronic) - Past Surgical History Surgical History: coronary bypass surgery - Social History Smoking Status: Former smoker - Family History Maternal Family History: Family History (Last Reviewed 07/12/19 @ 12:28 by Ezio Kaufman MD) Sister Alcoholism Cancer Mother Arthritis Father Arthritis Brother Cancer History Items: No pertinent history Paternal Family History: Family History (Last Reviewed 07/12/19 @ 12:28 by Ezio Kaufman MD) Sister Alcoholism Cancer Mother Arthritis Father Arthritis Brother Cancer History Items: No pertinent history Review of Systems Constitutional: Denies: Chills, Fever, Weight Change HEENT: Denies: Head Aches, Sinus Congestion, Sinus Drainage Cardiovascular: Denies: Chest Pain, Palpitations Respiratory: Denies: Cough, Shortness of breath at rest, Sputum production Gastrointestinal: Denies: Abdominal Pain, Nausea, Vomiting Genitourinary: Denies: Dysuria Musculoskeletal: Denies: Joint Pain, Joint Tenderness Skin: Denies: Rash, Wounds Neurological: Denies: Numbness, Tingling, Focal weakness Psychiatric: Denies: Anxiety, Depression, Homicidal Ideations, Suicidal Ideations Hematologic/ Lymphatic: Denies: Easy Bruising, Easy Bleeding Patient Problems: Active and Suspected Problems (Last Reviewed 07/12/19 @ 12:28 by Zion Lopes) UTI (urinary tract infection) (Acute) Sepsis (Acute) Acute kidney injury (Acute) - Physical Exam Vitals/I&O's: Vital Signs Temp Pulse Resp BP Pulse Ox 97.9 F 71 30 H 150/64 H 94 07/13/19 13:21 07/13/19 13:21 07/13/19 13:21 07/13/19 13:21 07/13/19 13:21 Oxygen Flow Rate (L/min) 2 Oxygen Delivery Method Nasal Cannula Weight: 141.3 kg Body Mass Index (BMI) 44.6 Finger Stick Blood Glucose 121 Intake and Output for Last 24 Hours 07/11/19 07/12/19 07/13/19 23:59 23:59 23:59 Intake Total 4042.5 / 4042.5 1062.5 / 1062.5 Output Total 400 / 400 400 / 400 Balance 3642.5 / 3642.5 662.5 / 662.5 General: Alert, Oriented x3, Cooperative HEENT: Atraumatic, PERRLA, EOMI, Normocephalic Neck: Supple, No JVD, Negative Carotid Bruits Lungs: Clear to auscultation, Normal air movement Cardiovascular: Regular rate, No murmurs Abdomen: Bowel Sounds Present, Soft, Non Tender Extremities: No edema, Capillary Refill Less than 3 Seconds Skin: No rashes, No breakdown Musculoskeletal: No Tenderness to Palpation of Joints or Extremities Neurological: Cranial nerves II-XII grossly intact Psych/Mental Status: Normal Affect, Appropriate Microbiology Past 72 Hours 07/12/19 09:40 Urine Catheter - Savage Urine Culture - Preliminary Presumptive E. 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 07/12/19 09:50 Blood Culture (Wb) - Anticubital Right Blood Culture - Preliminary 07/12/19 09:30 Mucosa - Nose Influenza Types A,B Direct FA (GENO) - Final Laboratory Results 07/12/19 15:15: Troponin I 0.211 H 07/12/19 16:36: POC Glucose 128 H 07/12/19 21:09: POC Glucose 93 07/13/19 04:50: WBC 13.5 H, RBC 4.57 L, Hgb 14.3, Hct 43.8, MCV 95.8 H, MCH 31.3, MCHC 32.6, RDW Std Deviation 56.5 H, RDW Coeff of Iram 16.0 H, Plt Count 166, MPV 10.7, Immature Gran % (Auto) 0.400, Neut % (Auto) 91.0 H, Lymph % (Auto) 4.0 L, Phillips % (Auto) 4.4, Eos % (Auto) 0.0, Baso % (Auto) 0.2, Absolute Neuts (auto) 12.3 H, Absolute Lymphs (auto) 0.54 L, Nucleated RBC % 0, Differential Comment 07/13/19 04:50: Sodium 137, Potassium 3.9, Chloride 104, Carbon Dioxide 27.0, Anion Gap 6, BUN 28 H, Creatinine 1.88 H, Estim Creat Clear Calc 36.13, Est GFR (MDRD) Af Amer 45 L, Est GFR (MDRD) Non-Af 38 L, BUN/Creatinine Ratio 14.9, Glucose 166 H, Calcium 8.4 L 07/13/19 06:32: POC Glucose 157 H 07/13/19 11:36: POC Glucose 168 H 07/13/19 11:48: Specimen Type ART, Sample Site R Radial, pH 7.43, Bicarbonate Actual 22.8, POC Total CO2 24, Base Excess -1, O2 Saturation 98, ABG pCO2 34.3 L , ABG pO2 102 H, John Test POS, O2 Delivery Device Nasal Can, Liter Flow 3.0, Blood Gas Notified Whom HOSP , Blood Gas Notified Time 1140 Current Medications Acetaminophen (Tylenol) 650 mg PO Q6H PRN PRN PRN Reason: Pain Score 1-3/Temp > 100.7 F Al Hydroxide/Mg Hydroxide (Mylanta Ii) 30 ml PO Q6H PRN PRN PRN Reason: Gastric Burning Albuterol Sulfate (Ventolin Aerosols) 2.5 mg INHALATION Q4H.RT PRN PRN Reason: SHORTNESS OF BREATH Last Admin: 07/13/19 05:53 Dose: 2.5 mg Documented by: Aspirin (Ecotrin) 81 mg PO DAILY@0800 [facility] Last Admin: 07/13/19 10:20 Dose: 81 mg Documented by: Cholecalciferol (Vitamin D) 5,000 unit PO DAILY [facility] Last Admin: 07/13/19 10:21 Dose: 5,000 unit Documented by: Digoxin (Lanoxin) 250 mcg PO DAILY [facility] Last Admin: 07/13/19 10:20 Dose: 250 mcg Documented by: Docusate Sodium (Colace) 100 mg PO BID@1200,2200 [facility] Last Admin: 07/13/19 11:43 Dose: 100 mg Documented by: Duloxetine HCl (Cymbalta) 60 mg PO QHS [facility] Last Admin: 07/12/19 21:23 Dose: 60 mg Documented by: Ferrous Sulfate (Ferrous Sulfate) 325 mg PO DAILY@0800 [facility] Last Admin: 07/13/19 10:20 Dose: 325 mg Documented by: Folic Acid (Folic Acid) 1 mg PO DAILY@1200 [facility] Last Admin: 07/13/19 11:43 Dose: 1 mg Documented by: Gabapentin (Neurontin) 1,200 mg PO QHS [facility] Last Admin: 07/12/19 21:22 Dose: 1,200 mg Documented by: Glucagon () 1 mg IM .X1 PRN PRN Reason: Hypoglycemia Ceftriaxone Sodium (Rocephin) 1 gm in 50 mls @ 100 mls/hr IV Q24 [facility] Last Infusion: 07/13/19 10:51 Dose: Infused Documented by: Sodium Chloride () 250 mls @ 15 mls/hr IV .[id number] PRN PRN Reason: Saline Flush Insulin Human Lispro (Humalog Kwikpen (Bkc)) 0 unit SC [facility]; Protocol Last Admin: 07/13/19 11:42 Dose: 2 u Documented by: Melatonin (Melatonin) 3 mg PO QHS PRN PRN PRN Reason: INSOMNIA Metoprolol Tartrate (Lopressor (Beta Taisha)) 50 mg PO DAILY@2200 [facility] Last Admin: 07/12/19 21:22 Dose: 50 mg Documented by: Multivitamins/Minerals (Multivitamin With Minerals) 1 tablet PO DAILY@0800 [facility] Last Admin: 07/13/19 10:20 Dose: 1 tablet Documented by: Nitroglycerin (Nitrostat) 0.4 mg SUBLINGUAL Q5M PRN PRN Reason: CARDIAC/CHEST PAIN Nutritional Formula (Lactose Free) (Glucerna Shake) 120 ml PO TIDCM [facility] Last Admin: 07/13/19 11:43 Dose: Not Given Documented by: Ondansetron HCl (Zofran) 4 mg IV Q8H PRN PRN PRN Reason: NAUSEA/VOMITING Oxycodone HCl (Oxyir) 5 mg PO Q4H PRN PRN PRN Reason: Pain Score 4-5/10 Pantoprazole Sodium (Protonix) 20 mg PO DAILY@1700 [facility] Last Admin: 07/12/19 17:39 Dose: 20 mg Documented by: Potassium Chloride (K-Dur) 10 meq PO DAILY@0800 [facility] Last Admin: 07/13/19 10:20 Dose: 10 meq Documented by: Pramipexole Dihydrochloride (Mirapex) 0.5 mg PO TID [facility] Last Admin: 07/13/19 06:37 Dose: 0.5 mg Documented by: Pravastatin Sodium (Pravachol) 40 mg PO DAILY [facility] Last Admin: 07/13/19 10:21 Dose: 40 mg Documented by: Promethazine HCl (Phenergan) 25 mg IM Q6H PRN PRN PRN Reason: Breakthrough Nausea/Vomiting Rivaroxaban (Xarelto) 10 mg PO DAILY [facility] Last Admin: 07/13/19 10:21 Dose: 10 mg Documented by: Sodium Chloride () 10 - 40 ml IV UD PRN PRN Reason: SALINE FLUSH Last Admin: 07/13/19 11:28 Dose: 10 ml Documented by: Tamsulosin HCl (Flomax) 0.4 mg PO QHS [facility] Assessment/Plan All Active Problems (Last Reviewed 07/12/19 @ 12:28 by Ezio Kaufman MD) UTI (urinary tract infection) (Acute) Sepsis (Acute) Acute kidney injury (Acute) DELVIS. 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 not sure if any work up done in the past.
[2019-07-13 15:52] LABS: Urine Sodium 64 mmol/L (Not Establ.)
[2019-07-13 16:51] LABS: Bedside Glucose 125 mg/dL (70-110)
[2019-07-13] MEDS: Pantoprazole Sodium 20 MG Tablet PO (17:41)
[2019-07-13] MEDS: Furosemide 40 MG/4 ML Vial IV (17:41)
[2019-07-13] MEDS: DULoxetine Hcl 60 MG Capsule PO (21:23)
[2019-07-13] MEDS: Gabapentin 600 MG Tablet 1200 MG PO (21:23)
[2019-07-13] MEDS: Metoprolol Tartrate 50 MG Tablet PO (21:23)
[2019-07-13] MEDS: Tamsulosin HCl 0.4 MG Capsule PO (21:27)
[2019-07-13 21:30] LABS: Bedside Glucose 126 mg/dL (70-110)
[2019-07-14 03:00] VITALS: PULSE 73
[2019-07-14 03:20] VITALS: BP 153/91; PULSE 92; RESP 20; TEMP 36.5; O2SAT 94
[2019-07-14] MEDS: 0.9% Saline Lock 10 ML Syringe IV ×3 (04:45→14:26)
[2019-07-14 04:55] LABS: Absolute Neutrophil Count 8.1 X10^3/uL (2.0-7.7); Basophil# 0.03 X10^3/uL; Basophil% 0.3 % (0-1); Eosinophil# 0.04 X10^3/uL; Eosinophils% 0.4 % (0-5); Hematocrit 41.9 % (40-54); Hemoglobin 13.6 g/dL (13.0-16.5); Mean Corp Hgb Conc 32.5 g/dL (32-36); Mean Corpuscular Hgb 31.1 pg (27.0-32.0); Mean Corpuscular Volume 95.9 fL (80-94); Mean Platelet Vol. 11.1 fl (6.2-12.0); Monocyte# 1.14 X10^3/uL; Monocyte% 11.3 % (0-10); NRBC Flagged by Analyzer 0 % (0-5); Neutrophil # 8.11 X10^3/uL (2.7-7.7); Neutrophil % 80.6 % (47-70); Platelet Count 150 K/mm3 (150-450); RBC Distribution Width CV 15.9 % (11.6-14.6); RBC Distribution Width SD 57.1 fl (35.1-43.9); Red Blood Count 4.37 M/mm3 (4.6-6.2); White Blood Count 10.1 K/mm3 (4.4-11.0)
[2019-07-14 05:16] LABS: Anion Gap 5 (5-15); BUN 28 mg/dL (7-18); BUN/Creat Ratio 18.3 RATIO (10-20); Calcium,Total 8.5 mg/dL (8.5-10.1); Chloride 105 mmol/L (98-107); Creatinine, Serum 1.53 mg/dL (0.70-1.30); EST Glomerular Filtration Rate 48 mL/min (>60); Est Glom Filt Rate - Afr Amer 58 mL/min (>60); Glucose 129 mg/dL (74-106); Potassium 3.4 mmol/L (3.5-5.1); Sodium Level 141 mmol/L (136-145)
[2019-07-14 05:23] LABS: CPK Total, Creatine Kinase 166 U/L (39-308)
[2019-07-14] MEDS: Pramipexole Di-HCl 0.5 MG Tablet PO ×2 (06:19→14:26)
[2019-07-14 06:25] LABS: Bedside Glucose 143 mg/dL (70-110)
[2019-07-14 07:19] VITALS: PULSE 91
[2019-07-14 08:46] VITALS: O2SAT 92
[2019-07-14 09:40] VITALS: BP 164/78; PULSE 102; RESP 28; TEMP 36.6; O2SAT 96
[2019-07-14] MEDS: Ferrous Sulfate 325 MG Tablet PO (09:44)
[2019-07-14] MEDS: Aspirin E.C. 81 MG Tablet PO (09:44)
[2019-07-14] MEDS: Multivitamins,Ther W-Minerals Tablet 1 TABLET PO (09:44)
[2019-07-14] MEDS: Furosemide 40 MG/4 ML Vial IV (09:45)
[2019-07-14] MEDS: Pravastatin 40 MG Tablet PO (09:45)
[2019-07-14] MEDS: Digoxin 250 MCG Tablet PO (09:45)
[2019-07-14] MEDS: Rivaroxaban 10 MG Tablet PO (09:46)
--- NOTE | 2019-07-14 11:35 | PCM.DC ---
- Discharge Diagnoses Current Active Problems: Current Active and Chronic Problems (Last Reviewed 07/12/19 @ 12:28 by Ezio Kaufman MD) UTI (urinary tract infection) (Acute) Sepsis (Acute) Acute kidney injury (Acute) You will use the following diet at home:: Calorie/Carbohydrate Controlled (specify 1200, 1400, etc) - 1800 tj / day, Cardiac Your food should be the consistency of: Regular Your liquids should be the consistency of: Regular/Thin Discharge Activity: Return to Normal Activity Allergies/Adverse Reactions: Allergies No Known Allergies Allergy (Verified 05/05/19 12:54) Medications to take at Discharge Folic Acid 1 mg PO DAILY@1200 05/06/13 Duloxetine HCl 60 mg PO QHS 12/04/16 Pramipexole Di-HCl [Mirapex] 0.5 mg PO TID 12/04/16 aspirin 81 mg tablet,delayed release 81 mg PO DAILY 10/06/17 docusate sodium 100 mg capsule 100 mg PO BID cap 10/20/17 gabapentin 600 mg tablet 1,200 mg PO QHS tab 10/20/17 Multivit-Min/Iron Fum/Folic AC [Chcfd-Pgrrsxn-Muxpjofx Tablet] 1 ea PO BID 12/22/17 Omeprazole 20 mg PO QHS 12/22/17 metoprolol tartrate 50 mg tablet 50 mg PO DAILY@2200 #90 tab 07/09/18 Potassium Chloride [Klor-Con 10] 10 meq PO DAILY 10/02/18 losartan 50 mg tablet 50 mg PO BID #180 tab 11/16/18 rivaroxaban 10 mg tablet 10 mg PO DAILY #90 tab 11/17/18 fenofibrate nanocrystallized 145 mg tablet 145 mg PO LUNCH #90 tab 11/27/18 digoxin 250 mcg (0.25 mg) tablet 250 mcg PO DAILY #90 tab 01/15/19 Ferrous Sulfate [Iron] 65 mg PO DAILY 02/01/19 pravastatin 40 mg tablet 40 mg PO DAILY #90 tab 03/18/19 cholecalciferol (vitamin D3) 125 mcg (5,000 unit) capsule 5,000 unit PO DAILY 03/30/19 Oxygen, Home [Home Oxygen] 2 - 4 lpm NASAL QHS 05/05/19 furosemide 40 mg tablet 40 mg PO BID #180 tab 05/10/19 Cyanocobalamin [Vitamin B12] 1,000 mcg IM Q30D 07/12/19 Lactobacillus Acidophilus [Acidophilus] PO DAILY 07/12/19 Metformin HCl [Metformin HCl ER] 500 mg PO DAILY PRN PRN 07/12/19 Tamsulosin HCl [Flomax] 0.4 mg PO QHS 07/12/19 Acetaminophen [Tylenol Tablet] 650 mg PO Q6H PRN PRN tab 07/14/19 Cephalexin [Keflex] 500 mg PO BID #20 cap 07/14/19 The following prescriptions were given: Cephalexin [Keflex] 500 mg PO BID #20 cap Transmission Status: Pending to [facility] Primary Care Physician: Fany Hobson DO [Primary Care Provider] - Please follow up with your Primary Care Physician in: 1-2 weeks Test Results: Test results from this visit will be discussed in further detail at your follow-up appointment, if applicable. Please Follow Up With: [place] nephrology When: 3-4 weeks Please Follow Up With: Oncology When: 3-4 weeks Proposed Discharge Date: 07/14/19
--- NOTE | 2019-07-14 11:38 | CASEMGMT ---
This RN CM to room to discuss therapy recommendations for further therapy at discharge with pt/. Pt/ are agreeable to [facility] at discharge but would like to speak with Dr. Hobson prior to setting up [facility] at this time. also states that pt has had [facility] in the past but is unsure of which company. states she will try to find name of [facility] company when she goes home to get pt clothes for discharge. Pt states that he plays casino video games and uses urinal throughout the day. Pt does not ambulate much at home on a normal basis. CM to f/u with pt/ prior to discharge. [place]
[2019-07-14 12:02] VITALS: BP 155/94; PULSE 97; RESP 20; TEMP 36.7; O2SAT 93
[2019-07-14] MEDS: Folic Acid 1 MG Tablet PO (12:08)
[2019-07-14] MEDS: Docusate Sodium 100 MG Capsule PO (12:08)
--- NOTE | 2019-07-14 12:18 | PHA.DC.MC ---
Pharmacy Service has performed discharge medication reconciliation and counseling for this patient. 1. CEPHALEXIN 500MG PO BID X 10 DAYS The patient's discharge medication list was reviewed for discrepancies and discrepancies were resolved. Home Medications Folic Acid 1 mg PO DAILY@1200 05/06/13 Duloxetine HCl 60 mg PO QHS 12/04/16 Pramipexole Di-HCl [Mirapex] 0.5 mg PO TID 12/04/16 aspirin 81 mg tablet,delayed release 81 mg PO DAILY 10/06/17 docusate sodium 100 mg capsule 100 mg PO BID cap 10/20/17 gabapentin 600 mg tablet 1,200 mg PO QHS tab 10/20/17 Multivit-Min/Iron Fum/Folic AC [Xzbum-Wtmzzuc-Xegttdwr Tablet] 1 ea PO BID 12/22/17 Omeprazole 20 mg PO QHS 12/22/17 metoprolol tartrate 50 mg tablet 50 mg PO DAILY@2200 #90 tab 07/09/18 Potassium Chloride [Klor-Con 10] 10 meq PO DAILY 10/02/18 losartan 50 mg tablet 50 mg PO BID #180 tab 11/16/18 rivaroxaban 10 mg tablet 10 mg PO DAILY #90 tab 11/17/18 fenofibrate nanocrystallized 145 mg tablet 145 mg PO LUNCH #90 tab 11/27/18 digoxin 250 mcg (0.25 mg) tablet 250 mcg PO DAILY #90 tab 01/15/19 Ferrous Sulfate [Iron] 65 mg PO DAILY 02/01/19 pravastatin 40 mg tablet 40 mg PO DAILY #90 tab 03/18/19 cholecalciferol (vitamin D3) 125 mcg (5,000 unit) capsule 5,000 unit PO DAILY 03/30/19 Oxygen, Home [Home Oxygen] 2 - 4 lpm NASAL QHS 05/05/19 furosemide 40 mg tablet 40 mg PO BID #180 tab 05/10/19 Cyanocobalamin [Vitamin B12] 1,000 mcg IM Q30D 07/12/19 Lactobacillus Acidophilus [Acidophilus] PO DAILY 07/12/19 Metformin HCl [Metformin HCl ER] 500 mg PO DAILY PRN PRN 07/12/19 Tamsulosin HCl [Flomax] 0.4 mg PO QHS 07/12/19 Acetaminophen [Tylenol Tablet] 650 mg PO Q6H PRN PRN tab 07/14/19 Cephalexin [Keflex] 500 mg PO BID #20 cap 07/14/19 The patient was counseled on the following discharge medications and changes in medications for homegoing were reviewed. The Reason for Use, instructions for use, and potential side effects were reviewed for all new medications. The patient's questions regarding all of their medications were answered. The patient was able to verbally demonstrate an understanding of their discharge medications.
[2019-07-14 12:21] LABS: Bedside Glucose 133 mg/dL (70-110)
--- NOTE | 2019-07-14 13:44 | CASEMGMT ---
SW completed Healthcare Power of Community Health Program Representative and Healthcare Living Will with patient. Copies were made and given to patient along with originals. A copy of each was also placed in patient's chart. Aaliyah BECKETT
--- NOTE | 2019-07-14 14:00 | DS.PCM_ITS ---
<Irving Beckham - Last Filed: 07/14/19 14:00> Discharge Date and Diagnosis - Problem List Patient Problems: Active and Suspected Problems (Last Reviewed 07/12/19 @ 12:28 by Ezio Kaufman MD) UTI (urinary tract infection) (Acute) Sepsis (Acute) Acute kidney injury (Acute) Date of Admission: 07/12/19 Date of Discharge: 07/14/19 - Primary Discharge Diagnosis Active and Suspected Problems (Last Reviewed 07/12/19 @ 12:28 by Ezio Kaufman MD) Bacteremia, Acute sepsis secondary to acute cystitis, E coli Acute metabolic encephalopathy secondary to sepsis Indeterminate troponin, secondary to CHF and DELVIS Acute diastolic congestive heart failure Acute kidney injury secondary to sepsis, CHF Adrenal mass History of lung cancer Parkinsons - Secondary Discharge Diagnosis Chronic Problems (Last Reviewed 07/12/19 @ 12:28 by Ezio Kaufman MD) Status post insertion of iliac artery stent (Chronic ~08/04/12) Bilateral iliac artery stents 08/04/12 Iron deficiency anemia due to chronic blood loss (Chronic) Gastric AVMs, September 2017 Chronic atrial fibrillation (Chronic) History of cardioversion (Chronic 12/2016) Secondary pulmonary arterial hypertension (Chronic) Atherosclerosis of coronary artery of [place] heart without angina pectoris (Chronic) CABG x 2 HERRERA-LAD, SVG-OM 02/14/2006 [id number] anastomosis-LAD w/ Taxus 2.75 x 8 mm and POBA-PDA 12/23/2006 H/O coronary artery bypass surgery (Chronic 02/14/06) CABG x 2 HERRERA-LAD, SVG-OM 02/14/[address] Fei Castillo, [facility] 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 (Chronic) Alcohol dependence (Chronic) GERD (gastroesophageal reflux disease) (Chronic) HEBER (obstructive sleep apnea) (Chronic) Benign essential hypertension (Chronic) Hospital Course and Treatment Imaging Results: RAD/Chest 1 View (Portable) IMPRESSION: Mild vascular congestion Cardiomegaly and cardiac surgery Right Mediport catheter in position US/Kidney and Bladder IMPRESSION: Normal ultrasound of the kidneys. Right adrenal mass. Echo: Interpretation Summary The study was technically difficult. Based upon the 2D echocardiographic images obtained there appears to be grossly normal left ventricular size with borderline low global left ventricular systolic dysfunction. The estimated ejection fraction is 50 %. Septal motion consistent with IVCD. D shaped septum in systole and diastole. Moderately dilated right ventricle. Moderate global right ventricular systolic dysfunction. The left atrium is moderately enlarged. The right atrium is moderately enlarged. Mild (1+) mitral valve insufficiency. Moderately severe (3+) tricuspid valve insufficiency. Mild-Moderate (1-2+) pulmonic valve insufficiency. Right ventricular systolic pressure estimated to be 73 mmHg compatible with pulmonary hypertension. Unable to assess diastolic dysfunction. Consults: Nephro - Hanny Operations: None Procedures: 2-D Echocardiogram Summary of Care Provided: Hospital course: The patient is a 73 year old M with past medical history as above who presented to the emergency room with increased confusion, his noting that he had been incoherent and lethargic that morning. He been recently started on Cipro for a UTI. In the emergency room he was found to be septic secondary to UTI. CT of the abdomen was also obtained and had an incidental finding of an adrenal mass. He does have a history of lung cancer and this will need to be followed up with his oncologist. He was admitted to the PCU and placed on telemetry. His UTI was treated with Rocephin. He was given IV fluids as he had evidence of acute kidney injury. He appeared volume overloaded the following day and was placed on IV Lasix. He did have positive blood cultures with E. coli, urine culture was also E. coli. These were susceptible to Keflex and cefazolin. He will complete a 14-day course of cefazolin as an outpatient. His mental status resolved. His renal function improved after having Lasix. He remained stable on his baseline oxygen. He was advised to follow-up with his PCP in 1 to 2 weeks. [facility] 3 to 4 weeks. He was discharged home with home health care in stable condition. He will need his BMP checked at follow-up. This patient was seen by Irving Beckham PA-C under the supervision of Doctor Kaufman. [] Patient Problems: Active and Suspected Problems (Last Reviewed 07/12/19 @ 12:28 by Ezio Kaufman MD) UTI (urinary tract infection) (Acute) Sepsis (Acute) Acute kidney injury (Acute) - Physical Exam Vitals/I&O's: Vital Signs Temp Pulse Resp BP Pulse Ox 98.0 F 97 20 H 155/94 H 93 07/14/19 12:02 07/14/19 12:02 07/14/19 12:02 07/14/19 12:02 07/14/19 12:02 Oxygen Flow Rate (L/min) 3 Oxygen Delivery Method Room Air Weight: 302 lb 7.587 oz Body Mass Index (BMI) 44.6 Finger Stick Blood Glucose 121 Intake and Output for Last 24 Hours 07/12/19 07/13/19 07/14/19 23:59 23:59 23:59 Intake Total 4042.5 / 4042.5 1672.5 / 1672.5 645 / 645 Output Total 400 / 400 2875 / 2875 1974 / 1974 Balance 3642.5 / 3642.5 -1202.5 / -1202.5 -1330 / -1330 General: Alert, Oriented x3, Cooperative HEENT: Atraumatic, PERRLA, EOMI, Normocephalic Neck: Supple, No JVD, Negative Carotid Bruits Lungs: Clear to auscultation, Normal air movement Cardiovascular: Regular rate, No murmurs Abdomen: Bowel Sounds Present, Soft, Non Tender, Obese Extremities: Capillary Refill Less than 3 Seconds, Edema - 2+ pitting edema BLE Skin: No rashes, No breakdown Musculoskeletal: No Tenderness to Palpation of Joints or Extremities Neurological: Cranial nerves II-XII grossly intact Psych/Mental Status: Normal Affect, Appropriate, Alert and oriented to time, place, person, mood and affect Microbiology Past 72 Hours 07/12/19 09:50 Blood Culture (Wb) - Anticubital Right Blood Culture - Final GNR lactose cotton breeder 07/12/19 09:10 Blood Culture (Wb) - Central Line Blood Culture - Final Escherichia coli 07/12/19 09:40 Urine Catheter - Savage Urine Culture - Final Presumptive E. coli 07/12/19 09:30 Mucosa - Nose Influenza Types A,B Direct FA (GENO) - Final Laboratory Results 07/13/19 15:20: Ur Random Sodium 64 07/13/19 15:44: Urine Creatinine 22.70 07/13/19 16:43: POC Glucose 125 H 07/13/19 21:19: POC Glucose 126 H 07/14/19 04:40: WBC 10.1, RBC 4.37 L, Hgb 13.6, Hct 41.9, MCV 95.9 H, MCH 31.1, MCHC 32.5, RDW Std Deviation 57.1 H, RDW Coeff of Iram 15.9 H, Plt Count 150, MPV 11.1, Immature Gran % (Auto) 0.400, Neut % (Auto) 80.6 H, Lymph % (Auto) 7.0 L, [place] % (Auto) 11.3 H, Eos % (Auto) 0.4, Baso % (Auto) 0.3, Absolute Neuts (auto) 8.1 H, Absolute Lymphs (auto) 0.70 L, Nucleated RBC % 0 07/14/19 04:40: Sodium 141, Potassium 3.4 L, Chloride 105, Carbon Dioxide 31.0, Anion Gap 5, BUN 28 H, Creatinine 1.53 H, Estim Creat Clear Calc 44.40, Est GFR (MDRD) Af Amer 58 L, Est GFR (MDRD) Non-Af 48 L, BUN/Creatinine Ratio 18.3, Glucose 129 H, Calcium 8.5 07/14/19 04:40: Total Creatine Kinase 166 07/14/19 06:18: POC Glucose 143 H 07/14/19 11:56: POC Glucose 133 H Current Medications Acetaminophen (Tylenol) 650 mg PO Q6H PRN PRN PRN Reason: Pain Score 1-3/Temp > 100.7 F Al Hydroxide/Mg Hydroxide (Mylanta Ii) 30 ml PO Q6H PRN PRN PRN Reason: Gastric Burning Albuterol Sulfate (Ventolin Aerosols) 2.5 mg INHALATION Q4H.RT PRN PRN Reason: SHORTNESS OF BREATH Last Admin: 07/13/19 05:53 Dose: 2.5 mg Documented by: Aspirin (Ecotrin) 81 mg PO DAILY@0800 [facility] Last Admin: 07/14/19 09:44 Dose: 81 mg Documented by: Cholecalciferol (Vitamin D) 5,000 unit PO DAILY [facility] Last Admin: 07/14/19 09:45 Dose: 5,000 unit Documented by: Digoxin (Lanoxin) 250 mcg PO DAILY [facility] Last Admin: 07/14/19 09:45 Dose: 250 mcg Documented by: Docusate Sodium (Colace) 100 mg PO BID@1200,2200 [facility] Last Admin: 07/14/19 12:08 Dose: 100 mg Documented by: Duloxetine HCl (Cymbalta) 60 mg PO QHS [facility] Last Admin: 07/13/19 21:23 Dose: 60 mg Documented by: Ferrous Sulfate (Ferrous Sulfate) 325 mg PO DAILY@0800 [facility] Last Admin: 07/14/19 09:44 Dose: 325 mg Documented by: Folic Acid (Folic Acid) 1 mg PO DAILY@1200 [facility] Last Admin: 07/14/19 12:08 Dose: 1 mg Documented by: Furosemide (Lasix) 40 mg IV BID@1000,1800 [facility] Last Admin: 07/14/19 09:45 Dose: 40 mg Documented by: Gabapentin (Neurontin) 1,200 mg PO QHS [facility] Last Admin: 07/13/19 21:23 Dose: 1,200 mg Documented by: Glucagon () 1 mg IM .X1 PRN PRN Reason: Hypoglycemia Sodium Chloride () 250 mls @ 15 mls/hr IV .[id number] PRN PRN Reason: Saline Flush Cefazolin Sodium () 1 gm in 50 mls @ 100 mls/hr IV Q8 [facility] Insulin Human Lispro (Humalog Kwikpen (Bkc)) 0 unit SC [facility]; Protocol Last Admin: 07/14/19 12:03 Dose: Not Given Documented by: Melatonin (Melatonin) 3 mg PO QHS PRN PRN PRN Reason: INSOMNIA Metoprolol Tartrate (Lopressor (Beta Taisha)) 50 mg PO DAILY@2200 [facility] Last Admin: 07/13/19 21:23 Dose: 50 mg Documented by: Multivitamins/Minerals (Multivitamin With Minerals) 1 tablet PO DAILY@0800 [facility] Last Admin: 07/14/19 09:44 Dose: 1 tablet Documented by: Nitroglycerin (Nitrostat) 0.4 mg SUBLINGUAL Q5M PRN PRN Reason: CARDIAC/CHEST PAIN Nutritional Formula (Lactose Free) (Glucerna Shake) 120 ml PO TIDCM [facility] Last Admin: 07/14/19 12:07 Dose: Not Given Documented by: Ondansetron HCl (Zofran) 4 mg IV Q8H PRN PRN PRN Reason: NAUSEA/VOMITING Oxycodone HCl (Oxyir) 5 mg PO Q4H PRN PRN PRN Reason: Pain Score 4-5/10 Pantoprazole Sodium (Protonix) 20 mg PO DAILY@1700 [facility] Last Admin: 07/13/19 17:41 Dose: 20 mg Documented by: Potassium Chloride (K-Dur) 10 meq PO DAILY@0800 [facility] Last Admin: 07/14/19 09:44 Dose: 10 meq Documented by: Pramipexole Dihydrochloride (Mirapex) 0.5 mg PO TID [facility] Last Admin: 07/14/19 06:19 Dose: 0.5 mg Documented by: Pravastatin Sodium (Pravachol) 40 mg PO DAILY [facility] Last Admin: 07/14/19 09:45 Dose: 40 mg Documented by: Promethazine HCl (Phenergan) 25 mg IM Q6H PRN PRN PRN Reason: Breakthrough Nausea/Vomiting Rivaroxaban (Xarelto) 10 mg PO DAILY [facility] Last Admin: 07/14/19 09:46 Dose: 10 mg Documented by: Sodium Chloride () 10 - 40 ml IV UD PRN PRN Reason: SALINE FLUSH Last Admin: 07/14/19 09:53 Dose: 10 ml Documented by: Tamsulosin HCl (Flomax) 0.4 mg PO QHS [facility] Last Admin: 07/13/19 21:27 Dose: 0.4 mg Documented by: Discharge Diet: Low fat/ Low Cholesterol, 1800 Calorie Control Diet, 2000 mg Sodium Diet Discharge Activity: Return to Normal Activity Home Medications: Medications to take at Discharge Folic Acid 1 mg PO DAILY@1200 05/06/13 Duloxetine HCl 60 mg PO QHS 12/04/16 Pramipexole Di-HCl [Mirapex] 0.5 mg PO TID 12/04/16 aspirin 81 mg tablet,delayed release 81 mg PO DAILY 10/06/17 docusate sodium 100 mg capsule 100 mg PO BID cap 10/20/17 gabapentin 600 mg tablet 1,200 mg PO QHS tab 10/20/17 Multivit-Min/Iron Fum/Folic AC [Bgiqy-Bklymdx-Ocidexsz Tablet] 1 ea PO BID 12/22/17 Omeprazole 20 mg PO QHS 12/22/17 metoprolol tartrate 50 mg tablet 50 mg PO DAILY@2200 #90 tab 07/09/18 Potassium Chloride [Klor-Con 10] 10 meq PO DAILY 10/02/18 losartan 50 mg tablet 50 mg PO BID #180 tab 11/16/18 rivaroxaban 10 mg tablet 10 mg PO DAILY #90 tab 11/17/18 fenofibrate nanocrystallized 145 mg tablet 145 mg PO LUNCH #90 tab 11/27/18 digoxin 250 mcg (0.25 mg) tablet 250 mcg PO DAILY #90 tab 01/15/19 Ferrous Sulfate [Iron] 65 mg PO DAILY 02/01/19 pravastatin 40 mg tablet 40 mg PO DAILY #90 tab 03/18/19 cholecalciferol (vitamin D3) 125 mcg (5,000 unit) capsule 5,000 unit PO DAILY 03/30/19 Oxygen, Home [Home Oxygen] 2 - 4 lpm NASAL QHS 05/05/19 furosemide 40 mg tablet 40 mg PO BID #180 tab 05/10/19 Cyanocobalamin [Vitamin B12] 1,000 mcg IM Q30D 07/12/19 Lactobacillus Acidophilus [Acidophilus] PO DAILY 07/12/19 Metformin HCl [Metformin HCl ER] 500 mg PO DAILY PRN PRN 07/12/19 Tamsulosin HCl [Flomax] 0.4 mg PO QHS 07/12/19 Acetaminophen [Tylenol Tablet] 650 mg PO Q6H PRN PRN tab 07/14/19 Cephalexin [Keflex] 500 mg PO BID #20 cap 07/14/19 Following Prescrptions Were Given to Patient: Cephalexin [Keflex] 500 mg PO BID #20 cap Transmission Status: Received by [facility]1954 [facility] Primary Care Physician: Fany Hobson DO [Primary Care Provider] - Please follow up with your Primary Care Physician in: 1-2 weeks Please Follow Up With[facility] When: 3-4 weeks Please Follow Up With: Oncology When: 3-4 weeks Please Follow Up With: Fany Hobson DO Disposition: Home with Home Health Minutes spent on discharge:: 40 Patient Condition:: Stable Medical Necessity - Tobacco Use Smoking Status: Former smoker Meaningful Use Info Meaningful Use Diagnoses (Choose all that apply): CHF - CHF LALY/ARB ordered at discharge?: Yes Documented LVEF (%): 50 <Ezio Kaufman - Last Filed: 07/14/19 14:29> Discharge Date and Diagnosis - Primary Discharge Diagnosis Active and Suspected Problems (Last Reviewed 07/12/19 @ 12:28 by Ezio Kaufman MD) UTI (urinary tract infection) (Acute) Sepsis (Acute) Acute kidney injury (Acute) - Secondary Discharge Diagnosis Chronic Problems (Last Reviewed 07/12/19 @ 12:28 by Ezio Kaufman MD) Status post insertion of iliac artery stent (Chronic ~08/04/12) Bilateral iliac artery stents 08/04/12 Iron deficiency anemia due to chronic blood loss (Chronic) Gastric AVMs, September 2017 Chronic atrial fibrillation (Chronic) History of cardioversion (Chronic 12/2016) Secondary pulmonary arterial hypertension (Chronic) Atherosclerosis of coronary artery of [place] heart without angina pectoris (Chronic) CABG x 2 HERRERA-LAD, SVG-OM 02/14/2006 [id number] anastomosis-LAD w/ Taxus 2.75 x 8 mm and POBA-PDA 12/23/2006 H/O coronary artery bypass surgery (Chronic 02/14/06) CABG x 2 HERRERA-LAD, SVG-OM 02/14/[address] Fei Castillo, [facility] 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 (Chronic) Alcohol dependence (Chronic) GERD (gastroesophageal reflux disease) (Chronic) HEBER (obstructive sleep apnea) (Chronic) Benign essential hypertension (Chronic) Hospital Course and Treatment Summary of Care Provided: This patient was seen in conjunction with Irving Beckham PA-C . I have independen tly interviewed and examined the patient and reviewed pertinent historical, laboratory, and other data. Please refer to Irving Beckham PA-C note for details of this patient's presentation, findings, and recommendations. I have reviewed Irving Beckham PA-C note and concur with documented findings. The patient is a 73 year old M [multiple comorbidities including Parkinson's disease, coronary artery disease, history of lung cancer currently in remission diabetes mellitus type 2 who was brought to the emergency department with altered mental status. In the emergency department and assessment of sepsis secondary to UTI was made. Patient was treated with antibiotics per protocol. His hospital stay was complicated by development of acute congestive heart failure managed with Lasix Assessment: 1. Sepsis secondary to acute cystitis with E. coli 2. Acute metabolic encephalopathy ?Secondary to sepsis management as discussed above 3. Acute congestive heart failure with preserved ejection fraction 4. Diabetes mellitus type II 5. Elevated troponin secondary to demand ischemia 6. Coronary artery disease with previous CABG and subsequent stent placement 7. Lung CA?adenocarcinoma?Involving the left upper lung lobe; 8. Chronic A. fib 9. Chronic anemia?Patient has history of gastric AVMs, 10. Peripheral arterial disease - with history of Bilateral iliac artery stents 08/04/12 11. Morbid obesity with BMI of 44.7 12. Obstructive sleep apnea 12. DVT prophylaxis?Patient is on [facility] Hospital course: As documented above - Physical Exam Vitals/I&O's: Vital Signs Temp Pulse Resp BP Pulse Ox 98.0 F 97 20 H 155/94 H 93 07/14/19 12:02 07/14/19 12:02 07/14/19 12:02 07/14/19 12:02 07/14/19 12:02 Oxygen Flow Rate (L/min) 3 Oxygen Delivery Method Room Air Weight: 137.2 kg Body Mass Index (BMI) 44.6 Finger Stick Blood Glucose 121 Intake and Output for Last 24 Hours 07/12/19 07/13/19 07/14/19 23:59 23:59 23:59 Intake Total 4042.5 / 4042.5 1672.5 / 1672.5 645 / 645 Output Total 400 / 400 2875 / 2875 1974 / 1974 Balance 3642.5 / 3642.5 -1202.5 / -1202.5 -1330 / -1330 Microbiology Past 72 Hours 07/12/19 09:50 Blood Culture (Wb) - Anticubital Right Blood Culture - Final GNR lactose cotton breeder 07/12/19 09:10 Blood Culture (Wb) - Central Line Blood Culture - Final Escherichia coli 07/12/19 09:40 Urine Catheter - Savage Urine Culture - Final Presumptive E. coli 07/12/19 09:30 Mucosa - Nose Influenza Types A,B Direct FA (GENO) - Final Laboratory Results 07/13/19 15:20: Ur Random Sodium 64 07/13/19 15:44: Urine Creatinine 22.70 07/13/19 16:43: POC Glucose 125 H 07/13/19 21:19: POC Glucose 126 H 07/14/19 04:40: WBC 10.1, RBC 4.37 L, Hgb 13.6, Hct 41.9, MCV 95.9 H, MCH 31.1, MCHC 32.5, RDW Std Deviation 57.1 H, RDW Coeff of Iram 15.9 H, Plt Count 150, MPV 11.1, Immature Gran % (Auto) 0.400, Neut % (Auto) 80.6 H, Lymph % (Auto) 7.0 L, [place] % (Auto) 11.3 H, Eos % (Auto) 0.4, Baso % (Auto) 0.3, Absolute Neuts (auto) 8.1 H, Absolute Lymphs (auto) 0.70 L, Nucleated RBC % 0 07/14/19 04:40: Sodium 141, Potassium 3.4 L, Chloride 105, Carbon Dioxide 31.0, Anion Gap 5, BUN 28 H, Creatinine 1.53 H, Estim Creat Clear Calc 44.40, Est GFR (MDRD) Af Amer 58 L, Est GFR (MDRD) Non-Af 48 L, BUN/Creatinine Ratio 18.3, Glucose 129 H, Calcium 8.5 07/14/19 04:40: Total Creatine Kinase 166 07/14/19 06:18: POC Glucose 143 H 07/14/19 11:56: POC Glucose 133 H Current Medications Acetaminophen (Tylenol) 650 mg PO Q6H PRN PRN PRN Reason: Pain Score 1-3/Temp > 100.7 F Al Hydroxide/Mg Hydroxide (Mylanta Ii) 30 ml PO Q6H PRN PRN PRN Reason: Gastric Burning Albuterol Sulfate (Ventolin Aerosols) 2.5 mg INHALATION Q4H.RT PRN PRN Reason: SHORTNESS OF BREATH Last Admin: 07/13/19 05:53 Dose: 2.5 mg Documented by: Aspirin (Ecotrin) 81 mg PO DAILY@0800 [facility] Last Admin: 07/14/19 09:44 Dose: 81 mg Documented by: Cholecalciferol (Vitamin D) 5,000 unit PO DAILY [facility] Last Admin: 07/14/19 09:45 Dose: 5,000 unit Documented by: Digoxin (Lanoxin) 250 mcg PO DAILY [facility] Last Admin: 07/14/19 09:45 Dose: 250 mcg Documented by: Docusate Sodium (Colace) 100 mg PO BID@1200,2200 [facility] Last Admin: 07/14/19 12:08 Dose: 100 mg Documented by: Duloxetine HCl (Cymbalta) 60 mg PO QHS [facility] Last Admin: 07/13/19 21:23 Dose: 60 mg Documented by: Ferrous Sulfate (Ferrous Sulfate) 325 mg PO DAILY@0800 [facility] Last Admin: 07/14/19 09:44 Dose: 325 mg Documented by: Folic Acid (Folic Acid) 1 mg PO DAILY@1200 [facility] Last Admin: 07/14/19 12:08 Dose: 1 mg Documented by: Furosemide (Lasix) 40 mg IV BID@1000,1800 [facility] Last Admin: 07/14/19 09:45 Dose: 40 mg Documented by: Gabapentin (Neurontin) 1,200 mg PO QHS [facility] Last Admin: 07/13/19 21:23 Dose: 1,200 mg Documented by: Glucagon () 1 mg IM .X1 PRN PRN Reason: Hypoglycemia Heparin Sodium (Beef Lung) () 50 units IV UD PRN PRN Reason: Port-a-Cath (VAD)Heparin Flush Sodium Chloride () 250 mls @ 15 mls/hr IV .[id number] PRN PRN Reason: Saline Flush Cefazolin Sodium () 1 gm in 50 mls @ 100 mls/hr IV Q8 [facility] Insulin Human Lispro (Humalog Kwikpen (Bkc)) [address] [facility]; Protocol Last Admin: 07/14/19 12:03 Dose: Not Given Documented by: Melatonin (Melatonin) 3 mg PO QHS PRN PRN PRN Reason: INSOMNIA Metoprolol Tartrate (Lopressor (Beta Taisha)) 50 mg PO DAILY@2200 [facility] Last Admin: 07/13/19 21:23 Dose: 50 mg Documented by: Multivitamins/Minerals (Multivitamin With Minerals) 1 tablet PO DAILY@0800 [facility] Last Admin: 07/14/19 09:44 Dose: 1 tablet Documented by: Nitroglycerin (Nitrostat) 0.4 mg SUBLINGUAL Q5M PRN PRN Reason: CARDIAC/CHEST PAIN Nutritional Formula (Lactose Free) (Glucerna Shake) 120 ml PO TIDCM [facility] Last Admin: 07/14/19 12:07 Dose: Not Given Documented by: Ondansetron HCl (Zofran) 4 mg IV Q8H PRN PRN PRN Reason: NAUSEA/VOMITING Oxycodone HCl (Oxyir) 5 mg PO Q4H PRN PRN PRN Reason: Pain Score 4-5/10 Pantoprazole Sodium (Protonix) 20 mg PO DAILY@1700 [facility] Last Admin: 07/13/19 17:41 Dose: 20 mg Documented by: Potassium Chloride (K-Dur) 10 meq PO DAILY@0800 [facility] Last Admin: 07/14/19 09:44 Dose: 10 meq Documented by: Pramipexole Dihydrochloride (Mirapex) 0.5 mg PO TID [facility] Last Admin: 07/14/19 06:19 Dose: 0.5 mg Documented by: Pravastatin Sodium (Pravachol) 40 mg PO DAILY [facility] Last Admin: 07/14/19 09:45 Dose: 40 mg Documented by: Promethazine HCl (Phenergan) 25 mg IM Q6H PRN PRN PRN Reason: Breakthrough Nausea/Vomiting Rivaroxaban (Xarelto) 10 mg PO DAILY [facility] Last Admin: 07/14/19 09:46 Dose: 10 mg Documented by: Sodium Chloride () 10 - 40 ml IV UD PRN PRN Reason: SALINE FLUSH Last Admin: 07/14/19 09:53 Dose: 10 ml Documented by: Sodium Chloride () 10 - 40 ml IV UD PRN PRN Reason: Port-a-Cath (VAD) Flush Sodium Chloride (0.9% Nacl (Sterile) Posiflush) 10 - 40 ml IV UD PRN PRN Reason: Port access or dressing change Tamsulosin HCl (Flomax) 0.4 mg PO QHS [facility] Last Admin: 07/13/19 21:27 Dose: 0.4 mg Documented by: Code Visit Inpatient E&M: [id number] Disch Hosp
--- NOTE | 2019-07-14 14:45 | CASEMGMT ---
This RN CM to room to see if pt decided on HHC at this time and Dr. Hobson is at bedside with pt at this time. Pt states that he would like [facility] for SN, PT/OT at this time and when returned, she stated that [facility]. Pt/ previously provided HHC list by Mary BARTHOLOMEW CM. Call to Manda at [facility] and she is updated on referral for pt at this time. Order in [facility] for SN, PT/OT at this time. Manda is aware that pt to be discharged today, voices understanding and states they should be able to take pt at this time. Pt/ voice no further questions/concerns/needs at this time. Mehul BARTHOLOMEW CM
--- NOTE | 2019-07-15 11:55 | CASEMGMT ---
[place] [facility] PHONE CALL DC DATE: 07.15.2019 DC Disposition: Home with [facility] Diagnosis on Discharge: UTI/Sepsis LACE/STRATA: 03/18 Call to Manda @ [facility]. Pt is to be seen today by [facility] nurse. Call deferred. Gabi PANIAGUAN RN AC
--- NOTE | 2019-07-15 12:05 | CASEMGMT ---
[place] [facility] PHONE CALL DC DATE: 07.14.2019 DC Disposition: Home with [facility] Diagnosis on Discharge: UTI/Sepsis LACE/STRATA: 03/18 Call to Manda @ [facility]. Pt is to be seen today by [facility] nurse. Call deferred. Gabi PANIAGUAN RN AC
--- NOTE | 2019-10-06 11:51 | CCN.REFER ---
Patient's declines CCN.
== END 2019-07-14 15:47 | disposition home health service (06) | DRG 871 ==
LOC: ED 10:50 → PCU 11:15
PROVIDERS: Internal Medicine Nephrology; Physician Assistant; Admitting Provider Internal Medicine; Emergency Provider Emergency Medicine; PCP Internal Medicine; Visit Provider Internal Medicine
DX: A41.51 Sepsis due to Escherichia coli [E. coli] (principal); R65.20 Severe sepsis without septic shock; N30.00 Acute cystitis without hematuria; N17.0 Acute kidney failure with tubular necrosis; I21.A1 Myocardial infarction type 2; G93.41 Metabolic encephalopathy; I50.31 Acute diastolic (congestive) heart failure; I48.20 Chronic atrial fibrillation, unspecified; J96.11 Chronic respiratory failure with hypoxia; I11.0 Hypertensive heart disease with heart failure; I27.21 Secondary pulmonary arterial hypertension; E11.51 Type 2 diabetes mellitus with diabetic peripheral angiopathy without gangrene; I25.10 Atherosclerotic heart disease of native coronary artery without angina pectoris; G20 Parkinson's disease; F02.80 Dementia in other diseases classified elsewhere, unspecified severity, without behavioral disturbance, psychotic disturbance, mood disturbance, and anxiety; G47.33 Obstructive sleep apnea (adult) (pediatric); F10.20 Alcohol dependence, uncomplicated; K21.9 Gastro-esophageal reflux disease without esophagitis; E66.01 Morbid (severe) obesity due to excess calories; Z68.41 Body mass index [BMI] 40.0-44.9, adult; Z79.84 Long term (current) use of oral hypoglycemic drugs; Z79.01 Long term (current) use of anticoagulants; Z79.82 Long term (current) use of aspirin; Z99.81 Dependence on supplemental oxygen; Z79.899 Other long term (current) drug therapy; Z86.2 Personal history of diseases of the blood and blood-forming organs and certain disorders involving the immune mechanism; Z85.118 Personal history of other malignant neoplasm of bronchus and lung; Z87.891 Personal history of nicotine dependence; Z95.1 Presence of aortocoronary bypass graft; Z95.5 Presence of coronary angioplasty implant and graft
CPT/HCPCS: 36591; 36600; 51702; 71045; 76770; 80048; 80053; 81001; 82550; 82570; 82803; 82962; 83605; 84300; 84484; 85025; 85610; 85730; 87040; 87077; 87086; 87088; 87186; 87804; 93005; 93306; 94640; 97163; 97167; 97530; 97802; 99285; J7030; Q9957; A4216; J1940

== ENCOUNTER 2019-08-05 13:57 | Emergency (ER) | payer MEDICARE, OTHER, SELFPAY ==
[2019-07-12 11:52] VITALS: BMI 44.6
[2019-08-05 13:58] VITALS: BP 143/69; PULSE 51; RESP 16; TEMP 36.1; O2SAT 92; BMI 42.3
--- NOTE | 2019-08-05 14:19 | EKG12_ITS ---
Test Reason : Blood Pressure : / mmHG Vent. Rate : 061 BPM Atrial Rate : 061 BPM P-R Int : 000 ms QRS Dur : 096 ms QT Int : 372 ms P-R-T Axes : 000 -36 013 degrees QTc Int : 374 ms Atrial Fibrillation with PVC's Left axis deviation Nonspecific ST and T wave abnormality Abnormal ECG Confirmed by SHUBHAM CLEARY, CAMPOS ([id number]), editorial project manager DAVID FLOWER ([id number]) on 08/09/2019 2:19:38 PM Referred By: NADYA Confirmed By:ELEONORA JALLOH MD
--- NOTE | 2019-08-05 14:19 | CT_ITS ---
STUDY: CT BRAIN WITHOUT CONTRAST REASON FOR EXAM: Male, 73 years old. FALL X1 DAY AGO HITTING HEAD -- ON BLOOD THINNERS -- TBI AGE 19 RADIATION DOSAGE (If Supplied By Facility): CTDIvol = ( 44.99 ) mGy, DLP = ( 812.98 ) mGycm TECHNIQUE: Transaxial CT imaging of the brain was performed without administration of intravenous contrast material. Individualized dose optimization techniques were used for this CT. COMPARISON: Comparison is made with prior examination dated October 02, 2018. FINDINGS: Normal soft tissue structures. Normal calvarium. There is mild cerebral atrophy with widening of the extra-axial spaces and ventricular dilatation. There are areas of decreased attenuation within the white matter tracts of the supratentorial brain, consistent with microvascular disease changes. Normal basal ganglia and thalami. Normal brainstem. Normal cerebellum. There is no intracranial hemorrhage. There are no findings of an acute ischemic infarction. Atherosclerotic calcification of the cavernous portions of the internal carotid arteries as well as the vertebral arteries. Normal visualized paranasal sinuses. CT/Brain/Head without Contrast IMPRESSION: Chronic involutional changes of the brain. Electronically Signed: Navdeep Pacheco, at 15:38 EST , Service support ,
--- NOTE | 2019-08-05 14:20 | CT_ITS ---
STUDY: CT CERVICAL SPINE WITHOUT CONTRAST REASON FOR EXAM: Male, 73 years old. FALL X1 DAY AGO HITTING HEAD -- ON BLOOD THINNERS -- TBI AGE 19 RADIATION DOSAGE (If Supplied By Facility): CTDIvol = ( 33.24 ) mGy, DLP = ( 1282.42 ) mGycm TECHNIQUE: High resolution transaxial imaging was performed without contrast material. Sagittal and coronal images were reconstructed. Individualized dose optimization techniques were used for this CT. COMPARISON: Comparison is made with prior examination dated October 02, 2018. FINDINGS: Normal craniovertebral junction. There are degenerative changes of the anterior atlantoaxial articulation. Normal odontoid process. Normal cervical lordosis. Normal vertebral bodies and posterior osseous elements. C2-3: Normal endplates. Normal disc height and morphology. Normal central canal and intervertebral neuroforamina. C3-4: Normal endplates. Normal disc height and morphology. Normal central canal and intervertebral neuroforamina. C4-5: Normal endplates. Normal disc height and morphology. Normal central canal and intervertebral neuroforamina. C5-6: Moderate degree of disc space narrowing. There is evidence of facet joint osteoarthritis and hypertrophy as well as spondylosis. Mild degree of bilateral neural foraminal stenosis. C6-7: Moderate degree of disc space narrowing. Spondylosis. Hypertrophy of the facet joints. Uncovertebral arthrosis. Bilateral neural foraminal stenosis. C7-T1: Normal endplates. Normal disc height and morphology. Normal central canal and intervertebral neuroforamina. Normal visualized soft tissue structures. CT/Spine Cervical without Contras IMPRESSION: Multilevel degenerative changes, as described above. Electronically Signed: Navdeep Pacheco, at 15:40 EST , Service support ,
[2019-08-05] MEDS: 0.9% Normal Saline 1,000 ML 150 ML IV (15:14)
[2019-08-05 15:18] LABS: Absolute Neutrophil Count 7.4 X10^3/uL (2.0-7.7); Basophil# 0.04 X10^3/uL; Basophil% 0.4 % (0-1); Eosinophil# 0.26 X10^3/uL; Eosinophils% 2.7 % (0-5); Hematocrit 38.7 % (40-54); Hemoglobin 12.7 g/dL (13.0-16.5); Lymphocyte % 11.2 % (19-41); Mean Corp Hgb Conc 32.8 g/dL (32-36); Mean Corpuscular Hgb 31.8 pg (27.0-32.0); Mean Corpuscular Volume 96.8 fL (80-94); Mean Platelet Vol. 10.8 fl (6.2-12.0); Monocyte# 0.91 X10^3/uL; Monocyte% 9.3 % (0-10); NRBC Flagged by Analyzer 0 % (0-5); Neutrophil # 7.42 X10^3/uL (2.7-7.7); Neutrophil % 75.8 % (47-70); Platelet Count 156 K/mm3 (150-450); RBC Distribution Width CV 15.4 % (11.6-14.6); RBC Distribution Width SD 54.6 fl (35.1-43.9); White Blood Count 9.8 K/mm3 (4.4-11.0)
--- NOTE | 2019-08-05 15:26 | ED.RN ---
[employer] PATIENTS PORT. FLUSHES EASILY. PATIENT HAD TO LIFT RIGHT ARM OVER HEAD TO GET BLOOD RETURN. BLOOD RETURN WAS MINIMAL. DRESSING DRY AND INTACT.
[2019-08-05 15:29] VITALS: O2SAT 95
[2019-08-05 15:33] LABS: Anion Gap 5 (5-15); BUN 18 mg/dL (7-18); BUN/Creat Ratio 15.4 RATIO (10-20); Chloride 101 mmol/L (98-107); Creatinine, Serum 1.17 mg/dL (0.70-1.30); EST Glomerular Filtration Rate 65 mL/min (>60); Est Glom Filt Rate - Afr Amer 78 mL/min (>60); Estimated Creatinine Clearance 58.06 ml/min; Glucose 110 mg/dL (74-106); Potassium 3.6 mmol/L (3.5-5.1); Sodium Level 138 mmol/L (136-145)
--- NOTE | 2019-08-05 16:09 | ED.VISSUMM ---
- ER Visit Summary Date of Service: 08/05/19 Chief Complaint: [Head injury ] History of Present Illness: The patient is a 73 M [presents to the emergency department complaint of a head injury that occurred yesterday. Patient states that he was finally bent over to look into a drawer and he can lost his balance or falling backwards and struck his head on the ground. No loss of consciousness per patient however his states that he really would not respond to her initially when she yelled at him for a second or 2. Patient complaining today of a headache and just feeling a little bit off. Patient is concerned because he is on Xarelto for history of A. fib. He denies any chest pain or shortness of breath. He denies any other injury other than some discomfort in his neck. He denies any paresthesias. Denies weakness in extremities. He does have history of coronary artery disease, hypertension, GERD, A. fib, and Parkinson's] Physical Examination: [HEENT-PERRLA, EOMI. Cranial nerves II through XII grossly intact. TMs clear. Mucous membranes moist. No adenopathy. No significant external evidence of trauma to his head. Patient does have some mild diffuse C-spine tenderness on palpation as well as right paraspinal cervical muscle tenderness. Cardiovascular-irregularly irregular. No murmurs auscultated. Lungs-clear to auscultation, chest wall stable without crepitus or subcu emphysema Abdomen-normoactive bowel sounds, soft, nontender, no rebound or rigidity, no peritoneal signs. Extremities-intact ?4, normal range of motion, normal pulses, atraumatic] Test Results: [EKG obtained arrival showed A. fib with occasional PVCs and nonspecific ST changes. CBC with differential obtained showed a white count 9.8, hemoglobin 12.7, hematocrit 39, plates 156. Chemistries unremarkable. Troponin was 0.018. ET scan of the brain without contrast showed chronic changes. CT of the C-spine showed degenerative changes but no fractures.] Emergency Department Course and Treatment: [] Treatment Plan: [Patient advised to follow-up with primary care physician 3 to 5 days. Patient use Tylenol for discomfort.] Disposition: [Discharged home in stable condition] Impression: [Closed head injury/concussion none Cervical strain] This note was generated with [employer] software. It may contain incorrect words, spelling, and punctuation that were not noted in review of the chart prior to signing ED Disposition - Plan for ED Patient: Referrals: Fast,Fany, DO [Primary Care Provider] -
--- NOTE | 2019-08-05 16:13 | ED.DEP ---
ED Disposition - Plan for ED Patient: Instructions: CONCUSSION, No Wake Up, Neck Sprain/Strain Referrals: Fany Hobson DO [Primary Care Provider] - 3-5 Days
[2019-08-05 16:32] VITALS: BP 133/75; PULSE 59; RESP 20; O2SAT 94
== END 2019-08-05 16:36 | disposition home or self-care (01) ==
LOC: ED 15:08
PROVIDERS: Emergency Provider Emergency Medicine; PCP Internal Medicine
DX: S06.0X0A Concussion without loss of consciousness, initial encounter (principal); S16.1XXA Strain of muscle, fascia and tendon at neck level, initial encounter; W19.XXXA Unspecified fall, initial encounter; Y93.9 Activity, unspecified; Y92.9 Unspecified place or not applicable; Y99.9 Unspecified external cause status; I49.3 Ventricular premature depolarization; I48.91 Unspecified atrial fibrillation; I25.10 Atherosclerotic heart disease of native coronary artery without angina pectoris; G20 Parkinson's disease; I10 Essential (primary) hypertension; K21.9 Gastro-esophageal reflux disease without esophagitis; G47.33 Obstructive sleep apnea (adult) (pediatric); Z79.84 Long term (current) use of oral hypoglycemic drugs; Z79.01 Long term (current) use of anticoagulants; Z79.82 Long term (current) use of aspirin; Z79.899 Other long term (current) drug therapy
CPT/HCPCS: 70450; 72125; 80048; 84484; 85025; 93005; 96360; 99285; J7030; A4216

== ENCOUNTER → 2019-08-13 12:44 | Outpatient (CLI) | payer MEDICARE, OTHER, SELFPAY ==
[2019-08-05 13:58] VITALS: BMI 42.3
--- NOTE | 2019-08-13 12:46 | CDU_ITS ---
Reason For Study: atherosclerosis of both carotid arteries Rt. Velocities/BP Lt. Velocities/BP Prox CCA 74.7/12.1 cm/sec. Prox CCA 92.5/17.6 cm/sec. Mid CCA 100.8/13.4 cm/sec. Mid CCA 93.7/15.1 cm/sec. Dist CCA 99.2/9.7 cm/sec. Dist CCA 71.6/10.2 cm/sec. Prox ICA 88.2/15.2 cm/sec. Prox ICA 101.4/22.3 cm/sec. Mid ICA 121.1/31.6 cm/sec. Mid ICA 102.3/20.0 cm/sec. Dist ICA 124.7/29.8 cm/sec. Dist ICA 123.2/23.7 cm/sec. Rt. ICA/CCA = 1.2. Lt. ICA/CCA = 1.3. Prox ECA 121.1/4.2 cm/sec. Prox ECA 413.0/20.8 cm/sec. Rt. Vert. 76.2/5.8 cm/sec. Lt. Vert. 39.7/9.0 cm/sec. Right Extracranial There is heterogeneous, irregular atherosclerotic plaque noted in the right common carotid artery. There is heterogeneous, irregular atherosclerotic plaque noted in the right internal carotid artery. There is heterogeneous, irregular atherosclerotic plaque noted in the right external carotid artery. Antegrade flow is noted in the right vertebral artery. Left Extracranial There is heterogeneous, irregular atherosclerotic plaque noted in the left common carotid artery. There is heterogeneous, irregular atherosclerotic plaque noted in the left internal carotid artery. The atherosclerotic plaque causes acoustic shadowing. There is heterogeneous, irregular atherosclerotic plaque noted in the left external carotid artery. Antegrade flow is noted in the left vertebral artery. Procedure Carotid Duplex [id number]. The exam was diagnostic. Exam performed in department. Interpretation Summary Mild (<50%) stenosis right extracranial internal carotid. Mild (<50%) stenosis left extracranial internal carotid. Severe acoustic shadowing is noted in the left internal carotid artery, which obscures visualization of the arterial lumen. Therefore, the degree of stenosis in the left internal carotid artery may exceed that which is estimated by velocity criteria alone. In this regard, clinical correlation is advised. Flow within the vertebral arteries is antegrade bilaterally. Elevated velocities in the left external carotid artery are suggestive of stenosis greater than 50%. Ordering Physician: Fany Hobson Performed By: Jamie Nielson RVT
== END ==
PROVIDERS: PCP Internal Medicine; Referring Provider Internal Medicine; Visit Provider Internal Medicine
DX: I65.23 Occlusion and stenosis of bilateral carotid arteries (principal)
CPT/HCPCS: 93880

== ENCOUNTER → 2019-08-16 13:52 | Outpatient (CLI) | payer MEDICARE, OTHER, SELFPAY ==
[2019-08-05 13:58] VITALS: BMI 42.3
[2019-08-16 15:59] LABS: BUN 18 mg/dL (7-18); Creatinine, Serum 1.21 mg/dL (0.70-1.30); EST Glomerular Filtration Rate 62 mL/min (>60); Est Glom Filt Rate - Afr Amer 75 mL/min (>60)
== END ==
PROVIDERS: PCP Internal Medicine; Referring Provider Psychiatry & Neurology Neurology; Visit Provider Psychiatry & Neurology Neurology
DX: R55 Syncope and collapse (principal)
CPT/HCPCS: 36415; 82565; 84520

== ENCOUNTER → 2019-08-20 09:59 | Outpatient (CLI) | payer MEDICARE, OTHER, SELFPAY ==
[2019-08-05 13:58] VITALS: BMI 42.3
--- NOTE | 2019-08-20 10:45 | MRI_ITS ---
STUDY: MRI BRAIN WITH AND WITHOUT CONTRAST REASON FOR EXAM: Male, 73 years old. syncope and collapse TECHNIQUE: Standardized multiplanar fat and water weighted pulse sequences were obtained. IV DOTAREM 28CC was administered for the contrast portion of the examination. COMPARISON: August 05, 2019 CT of the head FINDINGS: There is mild cerebral atrophy with widening of the extra-axial spaces and ventricular dilatation. There are a limited number of small white matter hyperintensities, distributed throughout the deep white matter tracts of the cerebral hemispheres, consistent with mild chronic white matter ischemic changes. Normal bilateral basal ganglia. Normal thalami. There is no extra-axial fluid accumulation. Normal flow voids within the major intracranial circulation suggesting patency by spin echo criteria. Normal venous enhancement. There is no enhancing intra-axial or extra-axial abnormality. Normal sella turcica, pituitary gland, infundibular stalk, optic chiasm and hypothalamus. Normal tectal plate and pineal gland. Normal midbrain, yecenia and medulla. Normal cerebellum. Normal basal cisterns. Normal bilateral temporal bones. MRI/Brain W/WO Contrast IMPRESSION: No acute intracranial abnormality or masses. Mild chronic microvascular ischemic changes. Electronically Signed: Julio Cesar Villalpando MD at 11:22 EST Tel , Service support ,
== END ==
PROVIDERS: PCP Internal Medicine; Referring Provider Psychiatry & Neurology Neurology; Visit Provider Psychiatry & Neurology Neurology
DX: R55 Syncope and collapse (principal)
CPT/HCPCS: 70553; A9575

== ENCOUNTER 2019-09-03 18:24 | Inpatient (IN) | payer MEDICARE, OTHER, SELFPAY ==
[2019-09-03] VITALS (14 sets, daily range): BP systolic 81–148; BP diastolic 41–72; PULSE 64–93; RESP 17–25; TEMP 36.5–38.5; O2SAT 92–98; BMI 42.7; BMI 41.6
--- NOTE | 2019-09-03 18:42 | RAD_ITS ---
STUDY: X-RAY CHEST REASON FOR EXAM: Male, 73 years old. Fever. TECHNIQUE: Single AP portable view of the chest. COMPARISON: July 12, 2019. FINDINGS: Stable right jugular Port-A-Cath. The lungs are well-expanded. There is continued mild perihilar interstitial prominence. There is no demonstrated pleural abnormality. The heart is borderline enlarged with evidence of median sternotomy. Normal mediastinum and yovanny. Normal visualized pulmonary arteries. Normal visualized aortic arch and descending thoracic aorta. Normal visualized thoracic spine. Normal visualized ribs, clavicles, and shoulders. There is no demonstrated abnormality of the visualized soft tissue structures of the upper abdomen. RAD/Chest 1 View (Portable) IMPRESSION: 1. Evidence of prior cardiac surgery. The heart is borderline enlarged. 2. Mild interstitial changes in the lungs. Chronic versus acute. 3. Stable right jugular Port-A-Cath. Electronically Signed: Timmy Joshua DO at 19:01 EDT Tel [phone], Service support ,
[2019-09-03 18:50] LABS: Absolute Lymphocyte Count 0.52 X10^3/uL (0.83-4.51); Absolute Neutrophil Count 13.4 X10^3/uL (2.0-7.7); Basophil# 0.05 X10^3/uL; Basophil% 0.3 % (0-1); Eosinophil# 0.11 X10^3/uL; Eosinophils% 0.7 % (0-5); Hematocrit 37.9 % (40-54); Hemoglobin 12.5 g/dL (13.0-16.5); Lymphocyte # 0.52 X10^3/ul (4.0); Lymphocyte % 3.4 % (19-41); Mean Corpuscular Hgb 31.2 pg (27.0-32.0); Mean Corpuscular Volume 94.5 fL (80-94); Mean Platelet Vol. 10.3 fl (6.2-12.0); Monocyte# 1.12 X10^3/uL; Monocyte% 7.3 % (0-10); NRBC Flagged by Analyzer 0 % (0-5); Neutrophil # 13.43 X10^3/uL (2.7-7.7); Neutrophil % 87.5 % (47-70); POSITIVE DIFFERENTIAL YES; Platelet Count 206 K/mm3 (150-450); RBC Distribution Width CV 15.3 % (11.6-14.6); RBC Distribution Width SD 52.7 fl (35.1-43.9); Red Blood Count 4.01 M/mm3 (4.6-6.2); White Blood Count 15.4 K/mm3 (4.4-11.0)
[2019-09-03 18:57] LABS: Differential Indicated SCAN CRITERIA MET
[2019-09-03] MEDS: Acetaminophen 325 MG Tablet 650 MG PO (19:01)
[2019-09-03] MEDS: 0.9% Normal Saline 1,000 ML 150 ML IV (19:01)
[2019-09-03 19:09] LABS: ALB/GLOB Ratio 0.8 RATIO (0.9-2.4); AST(SGOT) 17 U/L (15-37); Alanine Aminotransfer ALT/SGPT 14 U/L (16-61); Alkaline Phosphatase 67 U/L (45-117); Anion Gap 5 (5-15); BUN 16 mg/dL (7-18); BUN/Creat Ratio 12.4 RATIO (10-20); Calcium,Total 8.8 mg/dL (8.5-10.1); Chloride 100 mmol/L (98-107); Creatinine, Serum 1.29 mg/dL (0.70-1.30); EST Glomerular Filtration Rate 58 mL/min (>60); Est Glom Filt Rate - Afr Amer 70 mL/min (>60); Estimated Creatinine Clearance 52.66 ml/min; Globulin 3.6 g/dL (2.2-4.2); Glucose 169 mg/dL (74-106); Potassium 3.6 mmol/L (3.5-5.1); Protein, Total 6.6 g/dL (6.4-8.2); Sodium Level 137 mmol/L (136-145)
[2019-09-03 19:14] LABS: Lactic Acid 2.1 mmol/L (0.4-1.9)
[2019-09-03 19:48] LABS: Color, Urine Yellow (Yellow); Glucose, Dipstick Normal (Normal); Ketone-Dipstick Negative (Negative); Leukocyte Esterase-Dipstick 500 /ul (Negative); Mucous, Urine 0 SEEN /hpf (<or=2+); Nitrite-Dipstick Positive (Negative); Occult Blood-Urine 25 /ul (Negative); Protein-Dipstick 100 mg/dl (Negative); Squamous Epithelial Cells - UA 0 SEEN /hpf (0-5); Urine Bilirubin Dipstick Negative (Negative); Urine Clarity Sl. Cloudy (Clear); Urine Urobilinogen 4 mg/dl (Normal)
[2019-09-03 19:52] LABS: Anisocytosis 1+; Platelet Estimate ADEQUATE (ADEQ); Red Cell Morphology N CHROM NORMAL (NORM C&C)
[2019-09-03 19:58] LABS: Bacteria 4+ /hpf (None Seen); Red Blood Cells-Urine 0-5 SEEN /hpf (0-5); White Blood Cells 10-25 SEEN /hpf (0-5)
--- NOTE | 2019-09-03 20:03 | HP.PCM_ITS ---
Problem List (1) Severe sepsis Status: Acute (2) Pneumonia Status: Acute (3) UTI (urinary tract infection) Status: Acute (4) Status post insertion of iliac artery stent Status: Chronic Comment: Bilateral iliac artery stents 08/04/12 (5) Iron deficiency anemia due to chronic blood loss Status: Chronic Comment: Gastric AVMs, September 2017 (6) Chronic atrial fibrillation Status: Chronic (7) History of cardioversion Status: Chronic (8) Secondary pulmonary arterial hypertension Status: Chronic (9) Atherosclerosis of coronary artery of [place] heart without angina pectoris Status: Chronic Qualifiers: Coronary Disease-Associated Artery/Lesion type: [place] artery Qualified Code(s): I25.10 - Atherosclerotic heart disease of [place] coronary artery without angina pectoris Comment: CABG x 2 HERRERA-LAD, SVG-OM 02/14/2006 [id number] anastomosis-LAD w/ Taxus 2.75 x 8 mm and POBA-PDA 12/23/2006 (10) H/O coronary artery bypass surgery Status: Chronic Comment: CABG x 2 HERRERA-LAD, SVG-OM 02/14/[address] 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 Status: Chronic (12) GERD (gastroesophageal reflux disease) Status: Chronic (13) HEBER (obstructive sleep apnea) Status: Chronic (14) Benign essential hypertension Status: Chronic History of Present Illness Date of Admission: 09/03/19 Chief Complaint: fever The patient is a 73 year old M with a significant history of left lung cancer that is post surgery and chemotherapy; Parkinson's disease; obstructive sleep apnea on home CPAP/BiPAP with oxygen of 3 to 3.5 liters at night; CAD status post CABG; PAD status post stents; and chronic atrial fibrillation who presents emergency department with fever of 104 Fahrenheit at home. Associated with his symptoms is chills; malaise; and rigors. Of note patient has Parkinson disease but his tremors was more than his baseline. Further patient has history of recurrent UTI. He has had urological procedure with Dr. Graham in the past because of urine retention. Currently is urine smelled strong and he has dysuria. At baseline at times he has some urinary incontinence. Further patient reports shortness of breath with mild exertion. Chest x-ray showed mild interstitial changes in the lungs. T-max at the hospital was 101.3F. Patient was tachypneic. Lactic acid was 2.1. Urinalysis was abnormal. Past Medical History Past Medical History (Chronic Problems): Chronic Problems (Last Reviewed 09/03/19 @ 21:[address] Tony Foreman MD) Status post insertion of iliac artery stent (Chronic ~08/04/12) Bilateral iliac artery stents 08/04/12 Iron deficiency anemia due to chronic blood loss (Chronic) Gastric AVMs, September 2017 Chronic atrial fibrillation (Chronic) History of cardioversion (Chronic 12/2016) Secondary pulmonary arterial hypertension (Chronic) Atherosclerosis of coronary artery of [place] heart without angina pectoris (Chronic) CABG x 2 HERRERA-LAD, SVG-OM 02/14/2006 [id number] anastomosis-LAD w/ Taxus 2.75 x 8 mm and POBA-PDA 12/23/2006 H/O coronary artery bypass surgery (Chronic 02/14/06) CABG x 2 HERRERA-LAD, SVG-OM 02/14/[address] 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 Parkinsons G20 Allergies No Known Allergies Allergy (Verified 08/05/19 14:00) Home Medications: Ambulatory Orders Medication Instructions Recorded Folic Acid 1 mg PO DAILY@1200 05/06/13 Duloxetine HCl 60 mg PO QHS 12/04/16 Pramipexole Di-HCl [Mirapex] 0.5 mg PO TID 12/04/16 aspirin 81 mg tablet,delayed 81 mg PO DAILY 10/06/17 release docusate sodium 100 mg capsule 100 mg PO BID cap 10/20/17 gabapentin 600 mg tablet 1,200 mg PO QHS tab 10/20/17 Potassium Chloride [Klor-Con 10] 10 meq PO DAILY@1200 10/02/18 fenofibrate nanocrystallized 145 145 mg PO LUNCH #90 tab 11/27/18 mg tablet Ferrous Sulfate [Iron] 65 mg PO DAILY 02/01/19 cholecalciferol (vitamin D3) 125 5,000 unit PO DAILY 03/30/19 mcg (5,000 unit) capsule Lactobacillus Acidophilus 1 cap PO DAILY 07/12/19 [Acidophilus] Metformin HCl [Metformin HCl ER] 500 mg PO DAILY PRN PRN 07/12/19 Tamsulosin HCl [Flomax] 0.4 mg PO QHS 07/12/19 furosemide 40 mg tablet 40 mg PO BID #180 tab 08/30/19 Acetaminophen [Tylenol Extra 500 mg PO DAILY PRN PRN 09/03/19 Strength] Digoxin 250 mcg PO DAILY 09/03/19 Losartan Potassium [Cozaar] 50 mg PO BID 09/03/19 Metoprolol Tartrate [Lopressor 50 mg PO QHS 09/03/19 (beta zita)] Omeprazole [Prilosec] 20 mg PO QHS 09/03/19 Pravastatin Sodium 40 mg PO QHS 09/03/19 Rivaroxaban [Xarelto] 10 mg PO DAILY 09/03/19 Vit A/Vit C/Vit E/Zinc/Copper 1 ea PO BID 09/03/19 [Preservision Areds Tablet] Surgical History: Surgical History (Last Reviewed 09/03/19 @ 21:[address] Tony Foreman MD) History of cardioversion (Chronic) Onset Date: 12/2016 Z98.890 H/O coronary artery bypass surgery (Chronic) Onset Date: 02/14/06 Z95.1 CABG x 2 HERRERA-LAD, SVG-OM 02/14/[address] Fei Castillo, [facility] History of hammer toe correction Z98.890, Z87.39 bilateral History of lobectomy of lung Z90.2 left History of open reduction and internal fixation (ORIF) procedure Z98.890 right History of open reduction and internal fixation (ORIF) procedure Z98.890 right elbow with nerve transplant History of tonsillectomy and adenoidectomy Z98.890 Status post surgical removal of neoplasm of skin Z98.890 right side of neck/jaw Surgical History: coronary bypass surgery Psychiatric History: No pertinent psych hx Smoking Status: Former smoker - *Family History Maternal Family History: Family History (Last Reviewed 09/03/19 @ 21:[address] Tony Foreman MD) Sister Alcoholism Cancer Mother Arthritis Father Arthritis Brother Cancer History Items: No pertinent history Paternal Family History: Family History (Last Reviewed 09/03/19 @ 21:[address] Tony Foreman MD) Sister Alcoholism Cancer Mother Arthritis Father Arthritis Brother Cancer History Items: No pertinent history Review of Systems Constitutional: Reports: Chills, Fever, Malaise. Denies: Weight Change HEENT: Reports: Sinus Drainage. Denies: Head Aches, Sinus Congestion Cardiovascular: Denies: Chest Pain, Palpitations Respiratory: Reports: Shortness of breath upon exertion. Denies: Cough, Shortness of breath at rest, Sputum production Gastrointestinal: Denies: Abdominal Pain, Nausea, Vomiting Genitourinary: Reports: Dysuria Musculoskeletal: Denies: Joint Pain, Joint Tenderness Skin: Denies: Rash, Wounds Neurological: Denies: Numbness, Tingling, Focal weakness Psychiatric: Denies: Anxiety, Depression, Homicidal Ideations, Suicidal Ideations Hematologic/ Lymphatic: Denies: Easy Bruising, Easy Bleeding VTE Information - Inpt Only VTE Present on Admission: No VTE Mechan Device Prophylaxis: None VTE Pharm Prophylaxis ordered?: No Reason prophylaxis not ordered:: Treatment Not Indicated - On home Xarelto for A. fib. Xarelto continued. Patient Problems: Active and Suspected Problems (Last Reviewed 09/03/19 @ 21:[address] Tony Foreman MD) Severe sepsis (Acute) Pneumonia (Acute) - Physical Exam Vitals/I&O's: Vital Signs Temp Pulse Resp BP Pulse Ox 101.3 F H 80 18 133/52 H 95 09/03/19 18:26 09/03/19 19:25 09/03/19 19:25 09/03/19 19:25 09/03/19 19:25 Oxygen Delivery Method Room Air Weight: 135 kg Body Mass Index (BMI) 42.7 Finger Stick Blood Glucose 121 General: Alert, Oriented x3, Cooperative HEENT: Atraumatic, PERRLA, EOMI, Normocephalic Neck: Supple, Trachea Midline Lungs: Clear to auscultation, Normal air movement Cardiovascular: Normal S1, Normal S2, No murmurs, Irregular Rate Abdomen: Bowel Sounds Present, Soft, Non Tender Extremities: Capillary Refill Less than 3 Seconds, Edema - Bilateral lower legs Skin: No rashes, Ulcer/ Wound - Ulcer of plantar side of left big toe, - Musculoskeletal: No Tenderness to Palpation of Joints or Extremities Neurological: Cranial nerves II-XII grossly intact Psych/Mental Status: Normal Affect, Appropriate Microbiology Past 72 Hours 09/03/19 18:50 Mucosa - Nasopharyngeal Influenza Types A,B Direct FA (GENO) - Final Laboratory Results 09/03/19 18:35: WBC 15.4 H, RBC 4.01 L, Hgb 12.5 L, Hct 37.9 L, MCV 94.5 H, MCH 31.2, MCHC 33.0, RDW Std Deviation 52.7 H, RDW Coeff of [place] 15.3 H, Plt Count 206, MPV 10.3, Immature Gran % (Auto) 0.800, Neut % (Auto) 87.5 H, Lymph % (Auto) 3.4 L, [place] % (Auto) 7.3, Eos % (Auto) 0.7, Baso % (Auto) 0.3, Absolute Neuts (auto) 13.4 H, Absolute Lymphs (auto) 0.52 L, Nucleated RBC % 0, Diff erential Comment , Platelet Estimate ADEQUATE, RBC Morphology N CHROM, Anisocytosis 1+ 09/03/19 18:35: Sodium 137, Potassium 3.6, Chloride 100, Carbon Dioxide 32.0, Anion Gap 5, BUN 16, Creatinine 1.29, Estim Creat Clear Calc 52.66, Est GFR (MDRD) Af Amer 70, Est GFR (MDRD) Non-Af 58 L, BUN/Creatinine Ratio 12.4, Glucose 169 H, Calcium 8.8, Total Bilirubin 1.20 H, AST 17, ALT 14 L, Alkaline Phosphatase 67, Total Protein 6.6, Albumin 3.0 L, Globulin 3.6, Albumin/Globulin Ratio 0.8 L 09/03/19 18:35: Lactic Acid 2.1 H* 09/03/19 18:35: Urine Color Yellow, Urine Clarity Sl. Cloudy, Urine pH 6.0, Ur Specific [place] 1.010, Urine Protein 100 H, Urine Glucose (UA) Normal, Urine Ketones Negative, Urine Occult Blood 25 H, Urine Nitrite Positive H, Urine Bilirubin Negative, Urine Urobilinogen 4 H, Ur Leukocyte Esterase 500 H, Urine RBC 0-5 SEEN, Urine WBC 10-25 SEEN, Ur Squamous Epith Cells 0 SEEN, Urine Bacteria 4+, Urine Mucus 0 SEEN Current Medications Sodium Chloride () 1,000 mls @ 150 mls/hr IV .[id number] NATALIE Last Admin: 09/03/19 19:01 Dose: 150 mls/hr Documented by: Ceftriaxone Sodium (Rocephin) 1 gm in 50 mls @ 100 mls/hr IV X1 ONE Stop: 09/03/19 20:29 Assessment/Plan All Active Problems (Last Reviewed 09/03/19 @ 21:[address] Tony Foreman MD) UTI (urinary tract infection) (Acute) Severe sepsis (Acute) Pneumonia (Acute) The patient is a 73 year old M with a significant history of left lung cancer that is post surgery and chemotherapy; Parkinson's disease; obstructive sleep apnea on home CPAP/BiPAP with oxygen of 3 to 3.5 liters; at night CAD status post CABG; PAD status post stents; and chronic atrial fibrillation who presents at the emergency department with fever of 104 Fahrenheit at home; chills; malaise; rigors; strong odor of urine; dysuria; shortness of breath with mild exertion; rhinorrhea; and was found to have high-grade fever at hospital; also with tachypnea and leukocytosis; and abnormal urinalysis with some mild interstitial lung changes consistent with severe sepsis likely secondary to acute cystitis; cannot rule out pneumonia. Severe sepsis secondary to acute cystitis. Lactic acid: 2.1; trend Highest RR:-25 Temperature of 104F at home. At hospital T-max 101.3. White count of 15.4 Blood culture is pending Abnormal urinalysis. Antibiotics: Ceftriaxone 2 g daily. IV hydration: Received IV fluid infusion at the emergency department. Hold off further IV fluids at this time. Patient has bilateral leg edema. If hypotensive or if lactic acid is more than 4 resume IV fluids. Tylenol prn for fever. Trend CBC and BMP. Because patient has severe sepsis we will admit to intensive care unit and will consult [employer] specialist. Probable pneumonia Gram-positive or gram-negative. Patient symptoms are more consistent with his recurrent cystitis. He has shortness of breath that could be due to the severe sepsis from cystitis. However chest x-ray shows some interstitial changes. Discussed with the department doctor to start patient on azithromycin as well. We will continue patient on azithromycin. Legionella antigen screen and Strep antigen ordered Influenza screen at the emergency department was negative. Get a comprehensive respiratory pathogen panel. Put on droplet precautions. Diabetes mellitus Patient with hyperglycemia on presentation. Hold home metformin since patient's has a severe sepsis and also lactic acid is elevated.. Accu-Chek QA CHS with correction scale insulin ordered. Systolic heart failure Echocardiogram on 07/13/2019 showed left ventricular size of borderline low global left ventricular systolic dysfunction. Estimated EF was 50%. Septal motion was consistent with IVCD. Severe tricuspid valve insufficiency. Right ventricular systolic pressure was 73. Mild to moderate pulmonic valve insufficiency. Patient bilateral leg edema. Hold Lasix for now because of sepsis. Consider resuming Lasix when appropriate. Hold home daily potassium. Supplement potassium x1. Trend BMP. Maycol wrap to bilateral legs for bilateral leg swelling. Hold home metoprolol secondary sepsis. Hold losartan because of sepsis. Hypertension On presentation blood pressure was stable in regard to his age. Because of severe sepsis hold home blood pressure medication.. Hydralazine ordered. Chronic A. fib Metoprolol on hold secondary to sepsis. Continue metoprolol when necessary. Xarelto continued. At the ICU on telemetry. Digoxin continued. Obstructive sleep apnea Patient is unsure whether at home he uses a CPAP or BiPAP with oxygen bled in. Start patient on BiPAP with oxygen bled into keep oxygen saturation more than 92%. Chronic wound of left toe. Patient reported in the past he had MRSA wound infection. He reported the MRSA is cleared however the wound remains unhealed. Wet-to-dry dressing until wound care recommendations. Wound care consult. Morbid obesity: BMI of 42.7. Complicates care. Recommend lifestyle modifications. Parkinson's disease: Mirapex continued. Depression/anxiety Duloxetine continued GERD: Omeprazole continued. DVT prophylaxis No indicated since patient is on Xarelto for A. fib. Xarelto continued. Inpatient E&M: 10967 Init Hosp L3
--- NOTE | 2019-09-03 20:07 | ED.VISSUMM ---
- ER Visit Summary Date of Service: 09/03/19 Chief Complaint: [Fever] History of Present Illness: The patient is a 73 M [patient presents to the emergency department via EMS with complaint of fever that started this morning. Patient states initially started with some chills. Complains of a mild runny nose and some dyspnea with activity and exertion. He denies any cough however. He denies recent travel. Denies any exposures to novel coronavirus. Patient's family stated that the patient's urine smells very strong and are concerned he may have another urinary tract infection which she has had in the past and sepsis from. Patient denies any abdominal pain. He does have history of coronary artery disease, hypertension, lung cancer, A. fib, Parkinson's, UTIs, GERD, and obstructive sleep apnea] Physical Examination: [HEENT-PERRLA, EOMI. Cranial nerves II through XII grossly intact. TMs clear. Mucous membranes moist. No adenopathy. Cardiovascular-irregularly irregular and no murmurs auscultated. Lungs-clear to auscultation, chest wall stable without crepitus or subcu emphysema Abdomen-normoactive bowel sounds, soft, nontender, no rebound or rigidity, no peritoneal signs. Extremities-intact ?4, normal range of motion, normal pulses, atraumatic] Test Results: [CBC with differential count of 15.4, hemoglobin 12.5, hematocrit 38, placed 206. Chemistries unremarkable. LFTs unremarkable. Influenza was negative. Chest x-ray showed some mild interstitial changes which could be acute or chronic and mild cardiomegaly. Patient's lactate was 2.1.] Emergency Department Course and Treatment: [Patient had blood cultures ordered. Patient was started on Rocephin 1 g IV. Patient also had urine culture sent. I discussed case with hospitalist who recommended that I also start patient on azithromycin for possible pneumonia. Patient clinically however not coughing.] Treatment Plan: [Patient will be admitted for IV antibiotics] Disposition: [Admit] Impression: [UTI Sepsis] This note was generated with [employer] dictation software. It may contain incorrect words, spelling, and punctuation that were not noted in review of the chart prior to signing ED Disposition - Plan for ED Patient: Referrals: Fany Hobson, [Primary Care Provider] -
[2019-09-03] MEDS: Ceftriaxone 1 GM/50 ML BAG IV ×2 (20:16→21:00)
--- NOTE | 2019-09-03 21:09 | ED.RN ---
called to update on pt's admission. spoke with ICU nurse to inform to call once settled into room so pt and can talk on phone.
[2019-09-03] MEDS: Docusate Sodium 100 MG Capsule PO (22:24)
[2019-09-03] MEDS: DULoxetine Hcl 60 MG Capsule PO (22:24)
[2019-09-03] MEDS: Tamsulosin HCl 0.4 MG Capsule PO (22:25)
[2019-09-03] MEDS: Pravastatin 40 MG Tablet PO (22:26)
[2019-09-03] MEDS: Pramipexole Di-HCl 0.5 MG Tablet PO (22:26)
[2019-09-03] MEDS: Pantoprazole Sodium 20 MG Tablet PO (22:27)
[2019-09-03] MEDS: Gabapentin 600 MG Tablet 1200 MG PO (22:27)
[2019-09-03] MEDS: Multivitamin (Healthy Eyes) Capsule 1 CAP PO (22:27)
[2019-09-03 22:36] LABS: Bedside Glucose 118 mg/dL (70-110)
[2019-09-03 22:46] LABS: Reflex Lactate? Y
--- NOTE | 2019-09-03 22:56 | CPS ---
Pt refuses facility PAP at this time. Pt will have home PAP delivered.
[2019-09-03] MEDS: 0.9% Normal Saline 1,000 ML 100 ML IV (23:08)
[2019-09-03 23:43] LABS: Lactic Acid 0.9 mmol/L (0.4-1.9)
[2019-09-04] VITALS (35 sets, daily range): BP systolic 102–187; BP diastolic 49–107; PULSE 55–110; RESP 16–38; TEMP 36.6–39.4; O2SAT 92–100
[2019-09-04 03:34] LABS: Absolute Lymphocyte Count 0.87 X10^3/uL (0.83-4.51); Absolute Neutrophil Count 12.5 X10^3/uL (2.0-7.7); Basophil# 0.04 X10^3/uL; Basophil% 0.3 % (0-1); Eosinophil# 0.15 X10^3/uL; Hematocrit 39.2 % (40-54); Hemoglobin 12.7 g/dL (13.0-16.5); Lymphocyte # 0.87 X10^3/ul (4.0); Lymphocyte % 5.9 % (19-41); Mean Corp Hgb Conc 32.4 g/dL (32-36); Mean Corpuscular Hgb 31.3 pg (27.0-32.0); Mean Corpuscular Volume 96.6 fL (80-94); Mean Platelet Vol. 10.4 fl (6.2-12.0); Monocyte# 1.24 X10^3/uL; Monocyte% 8.3 % (0-10); NRBC Flagged by Analyzer 0 % (0-5); Platelet Count 168 K/mm3 (150-450); RBC Distribution Width CV 15.3 % (11.6-14.6); RBC Distribution Width SD 54.6 fl (35.1-43.9); Red Blood Count 4.06 M/mm3 (4.6-6.2); White Blood Count 14.9 K/mm3 (4.4-11.0)
[2019-09-04 03:55] LABS: Anion Gap 4 (5-15); BUN 13 mg/dL (7-18); Calcium,Total 7.7 mg/dL (8.5-10.1); Chloride 103 mmol/L (98-107); EST Glomerular Filtration Rate 78 mL/min (>60); Est Glom Filt Rate - Afr Amer 94 mL/min (>60); Estimated Creatinine Clearance 67.93 ml/min; Glucose 111 mg/dL (74-106); Potassium 3.3 mmol/L (3.5-5.1); Sodium Level 140 mmol/L (136-145)
[2019-09-04] MEDS: Ipratropium/Albuterol Sulfate 3 ML AMPUL.NEB INHALATION ×6 (04:57→22:15)
[2019-09-04] MEDS: Pramipexole Di-HCl 0.5 MG Tablet PO ×3 (06:00→22:17)
--- NOTE | 2019-09-04 07:25 | CON.PCM_ITS ---
Problem List (1) UTI (urinary tract infection) Status: Acute Qualifiers: Urinary tract infection type: acute pyelonephritis Qualified Code(s): N10 - Acute pyelonephritis (2) Acute kidney injury Status: Inactive (3) Severe sepsis Status: Acute (4) Status post insertion of iliac artery stent Status: Chronic Comment: Bilateral iliac artery stents 08/04/12 (5) Iron deficiency anemia due to chronic blood loss Status: Chronic Comment: Gastric AVMs, September 2017 (6) Chronic atrial fibrillation Status: Chronic (7) History of cardioversion Status: Chronic (8) Secondary pulmonary arterial hypertension Status: Chronic (9) Atherosclerosis of coronary artery of [place] heart without angina pectoris Status: Chronic Qualifiers: Coronary Disease-Associated Artery/Lesion type: [place] artery Qualified Code(s): I25.10 - Atherosclerotic heart disease of [place] coronary artery without angina pectoris Comment: CABG x 2 HERRERA-LAD, SVG-OM 02/14/2006 [id number] anastomosis-LAD w/ Taxus 2.75 x 8 mm and POBA-PDA 12/23/2006 (10) H/O coronary artery bypass surgery Status: Chronic Comment: CABG x 2 HERRERA-LAD, SVG-OM 02/14/[address] Fei Castillo, [facility] (11) 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 Status: Resolved (12) GERD (gastroesophageal reflux disease) Status: Chronic Qualifiers: Esophagitis presence: esophagitis presence not specified Qualified Code(s): K21.9 - Gastro-esophageal reflux disease without esophagitis (13) HEBER (obstructive sleep apnea) Status: Chronic (14) Benign essential hypertension Status: Chronic Reason for Consult Date of Consultation: 09/04/19 Reason for Consultation: Severe sepsis History of Present Illness: The patient is a 73 year old M, with past medical history listed below, who presented to [facility] on 09/03/2019 secondary to acute onset of fever. Patient reports a fever of 104 ?F with associated chills. Patient has had some mild rhinorrhea and dyspnea with activity over the last 24 to 48 hours. Patient has not reported any significant cough, travel or known exposures to coronavirus. Patient states that he has had some dysuria and the family had noted some very strong smelling urine over the last 24 hours. Patient has had a history of septic shock secondary to UTI in the past per his report. Patient denies any abdominal pain. In the ER, patient was noted to be in A. fib. Lungs were clear. CBC showed a leukocytosis, but chemistries were unremarkable. Influenza was negative. Patient does have some mild increased interstitial changes in the right lower lobe and lactate was elevated at 2.1. Patient was given 1 g of Rocephin after panculture. Patient also had azithromycin. Patient was admitted to the intensive care unit for further evaluation. Since being in the intensive care unit, patient reports subjective improvement in overall condition. Patient states he still feels some body aches, but overall feels improved. Patient denies any coughing, pleuritic chest pain or sinus congestion. Review of systems otherwise negative from a constitutional, HEENT, respiratory, cardiovascular, GI, genitourinary, musculoskeletal, skin, neurologic, psychiatric and hematologic system unless stated above. Past Medical History Past Medical History (Chronic Problems): Chronic Problems (Last Reviewed 09/03/19 @ 21:[address] Tony Foreman MD) Status post insertion of iliac artery stent (Chronic ~08/04/12) Bilateral iliac artery stents 08/04/12 Iron deficiency anemia due to chronic blood loss (Chronic) Gastric AVMs, September 2017 Chronic atrial fibrillation (Chronic) History of cardioversion (Chronic 12/2016) Secondary pulmonary arterial hypertension (Chronic) Atherosclerosis of coronary artery of [place] heart without angina pectoris (Chronic) CABG x 2 HERRERA-LAD, SVG-OM 02/14/2006 [id number] anastomosis-LAD w/ Taxus 2.75 x 8 mm and POBA-PDA 12/23/2006 H/O coronary artery bypass surgery (Chronic 02/14/06) CABG x 2 HERRERA-LAD, SVG-OM 02/14/[address] Fei Castillo, [facility] GERD (gastroesophageal reflux disease) (Chronic) HEBER (obstructive sleep apnea) (Chronic) Benign essential hypertension (Chronic) Medical History: Medical History (Last Reviewed 09/03/19 @ 21:[address] Tony Foreman MD) Chronic atrial fibrillation (Chronic) I48.2 Secondary pulmonary arterial hypertension (Chronic) I27.21 Atherosclerosis of coronary artery of [place] heart without angina pectoris (Chronic) I25.10 CABG x 2 HERRERA-LAD, SVG-OM 02/14/2006 [id number] anastomosis-LAD w/ Taxus 2.75 x 8 mm and POBA-PDA 12/23/2006 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 (Chronic) C34.12 Alcohol dependence (Inactive) F10.20 GERD (gastroesophageal reflux disease) (Chronic) K21.9 HEBER (obstructive sleep apnea) (Chronic) G47.33 Benign essential hypertension (Chronic) I10 Adenocarcinoma of lung, stage 1 C34.90 Gastric AVM Q27.33 Cancer of upper lobe of left lung C34.12 Dementia F03.90 Essential tremor G25.0 GI bleed K92.2 tsferred to [facility], transfused with 2 units PRBC's. Parkinsons G20 Allergies No Known Allergies Allergy (Verified 08/05/19 14:00) Home Medications: Ambulatory Orders Medication Instructions Recorded Folic Acid 1 mg PO DAILY@1200 05/06/13 Duloxetine HCl 60 mg PO QHS 12/04/16 Pramipexole Di-HCl [Mirapex] 0.5 mg PO TID 12/04/16 aspirin 81 mg tablet,delayed 81 mg PO DAILY 10/06/17 release docusate sodium 100 mg capsule 100 mg PO BID cap 10/20/17 gabapentin 600 mg tablet 1,200 mg PO QHS tab 10/20/17 Potassium Chloride [Klor-Con 10] 10 meq PO DAILY@1200 10/02/18 fenofibrate nanocrystallized 145 145 mg PO LUNCH #90 tab 11/27/18 mg tablet Ferrous Sulfate [Iron] 65 mg PO DAILY 02/01/19 cholecalciferol (vitamin D3) 125 5,000 unit PO DAILY 03/30/19 mcg (5,000 unit) capsule Lactobacillus Acidophilus 1 cap PO DAILY 07/12/19 [Acidophilus] Metformin HCl [Metformin HCl ER] 500 mg PO DAILY PRN PRN 07/12/19 Tamsulosin HCl [Flomax] 0.4 mg PO QHS 07/12/19 furosemide 40 mg tablet 40 mg PO BID #180 tab 08/30/19 Acetaminophen [Tylenol Extra 500 mg PO DAILY PRN PRN 09/03/19 Strength] Digoxin 250 mcg PO DAILY 09/03/19 Losartan Potassium [Cozaar] 50 mg PO BID 09/03/19 Metoprolol Tartrate [Lopressor 50 mg PO QHS 09/03/19 (beta zita)] Omeprazole [Prilosec] 20 mg PO QHS 09/03/19 Pravastatin Sodium 40 mg PO QHS 09/03/19 Rivaroxaban [Xarelto] 10 mg PO DAILY 09/03/19 Vit A/Vit C/Vit E/Zinc/Copper 1 ea PO BID 09/03/19 [Preservision Areds Tablet] Surgical History: Surgical History (Last Reviewed 09/03/19 @ 21:[address] Tony Foreman MD) History of cardioversion (Chronic) Onset Date: 12/2016 Z98.890 H/O coronary artery bypass surgery (Chronic) Onset Date: 02/14/06 Z95.1 CABG x 2 HERRERA-LAD, SVG-OM 02/14/[address] Fei Castillo, [facility] History of hammer toe correction Z98.890, Z87.39 bilateral History of lobectomy of lung Z90.2 left History of open reduction and internal fixation (ORIF) procedure Z98.890 right History of open reduction and internal fixation (ORIF) procedure Z98.890 right elbow with nerve transplant History of tonsillectomy and adenoidectomy Z98.890 Status post surgical removal of neoplasm of skin Z98.890 right side of neck/jaw Surgical History: coronary bypass surgery Psychiatric History: No pertinent psych hx Smoking Status: Former smoker - *Family History Maternal Family History: Family History (Last Reviewed 09/03/19 @ 21:[address] Tony Foreman MD) Sister Alcoholism Cancer Mother Arthritis Father Arthritis Brother Cancer History Items: No pertinent history Paternal Family History: Family History (Last Reviewed 09/03/19 @ 21:[address] Tony Foreman MD) Sister Alcoholism Cancer Mother Arthritis Father Arthritis Brother Cancer History Items: No pertinent history Review of Systems Comment: See HPI Patient Problems: Active and Suspected Problems (Last Reviewed 09/03/19 @ 21:[address] Tony Foreman MD) Severe sepsis (Acute) Pneumonia (Acute) Objective: Chest x-ray was personally reviewed and does show some increased interstitial infiltrates noted in the right lower lobe. Mild cardiomegaly is appreciated. - Physical Exam Vitals/I&O's: Vital Signs Temp Pulse Resp BP Pulse Ox 37.8 C H 79 22 H 132/55 H 95 09/04/19 06:00 09/04/19 06:00 09/04/19 06:00 09/04/19 06:00 09/04/19 06:00 Oxygen Flow Rate (L/min) 3 Oxygen Delivery Method Nasal Cannula Weight: 132.5 kg Body Mass Index (BMI) 41.6 Finger Stick Blood Glucose 121 Intake and Output for Last 24 Hours 09/02/19 09/03/19 09/04/19 23:59 23:59 23:59 Intake Total 1190 / 1516.67 1166.67 / 1166.67 Output Total 800 / 800 Balance 1190 / 1291.67 366.67 / 366.67 General: Alert, Oriented x3, Cooperative, - - Mild distress. Some difficulty in word finding. HEENT: Atraumatic, PERRLA, EOMI, Normocephalic, - - Slight scleral injection without icterus Oral: Moist Mucosa, No Gingival or Mucosal Lesions/ Ulcerations Neck: Supple, No JVD, No Nodes, Trachea Midline Lungs: Clear to auscultation, No rhonchi, No wheeze, No rales, - - Symmetric expansion. Cardiovascular: Normal S1, Normal S2, No murmurs, Irregular Rate, No rub noted, No Gallop Abdomen: Bowel Sounds Present, Soft, Non Tender, Non-Distended, Obese Extremities: No clubbing, No cyanosis, Edema - Bilateral lower extremities Skin: Ulcer/ Wound - Left big toe plantar ulcer without exudate Musculoskeletal: No Tenderness to Palpation of Joints or Extremities Lymphatic: No Cervical, Supraclavicular, or Inguinal Adenopathy Neurological: Cranial nerves II-XII grossly intact, Neuro grossly intact, Motor Exam 5/5 strength throughout Psych/Mental Status: Alert and oriented to time, place, person, mood and affect Microbiology Past 72 Hours 09/03/19 18:50 Mucosa - Nasopharyngeal Respiratory Panel (PCR) - Final 09/03/19 18:35 Urine Catheter - Catheter Streptococcus pneumoniae Antigen (M - Final 09/03/19 18:35 Urine Catheter - Catheter Legionella Antigen - Final 09/03/19 18:50 Mucosa - Nasopharyngeal Influenza Types A,B Direct FA (GENO) - Final Laboratory Results 09/03/19 18:35: WBC 15.4 H, RBC 4.01 L, Hgb 12.5 L, Hct 37.9 L, MCV 94.5 H, MCH 31.2, MCHC 33.0, RDW Std Deviation 52.7 H, RDW Coeff of Iram 15.3 H, Plt Count 206, MPV 10.3, Immature Gran % (Auto) 0.800, Neut % (Auto) 87.5 H, Lymph % (Auto) 3.4 L, [place] % (Auto) 7.3, Eos % (Auto) 0.7, Baso % (Auto) 0.3, Absolute Neuts (auto) 13.4 H, Absolute Lymphs (auto) 0.52 L, Nucleated RBC % 0, Differential Comment , Platelet Estimate ADEQUATE, RBC Morphology N CHROM, Anisocytosis 1+ 09/03/19 18:35: Sodium 137, Potassium 3.6, Chloride 100, Carbon Dioxide 32.0, Anion Gap 5, BUN 16, Creatinine 1.29, Estim Creat Clear Calc 52.66, Est GFR (MDRD) Af Amer 70, Est GFR (MDRD) Non-Af 58 L, BUN/Creatinine Ratio 12.4, Glucose 169 H, Calcium 8.8, Total Bilirubin 1.20 H, AST 17, ALT 14 L, Alkaline Phosphatase 67, Total Protein 6.6, Albumin 3.0 L, Globulin 3.6, Albumin/Globulin Ratio 0.8 L 09/03/19 18:35: Lactic Acid 2.1 H* 09/03/19 18:35: Urine Color Yellow, Urine Clarity Sl. Cloudy, Urine pH 6.0, Ur Specific [place] 1.010, Urine Protein 100 H, Urine Glucose (UA) Normal, Urine Ketones Negative, Urine Occult Blood 25 H, Urine Nitrite Positive H, Urine Bilirubin Negative, Urine Urobilinogen 4 H, Ur Leukocyte Esterase 500 H, Urine RBC 0-5 SEEN, Urine WBC 10-25 SEEN, Ur Squamous Epith Cells 0 SEEN, Urine Bacteria 4+, Urine Mucus 0 SEEN 09/03/19 22:18: POC Glucose 118 H 09/03/19 23:10: Lactic Acid 0.9 09/04/19 03:20: Sodium 140, Potassium 3.3 L, Chloride 103, Carbon Dioxide 33.0 H , Anion Gap 4 L, BUN 13, Creatinine 1.00, Estim Creat Clear Calc 67.93, Est GFR (MDRD) Af Amer 94, Est GFR (MDRD) Non-Af 78, BUN/Creatinine Ratio 13.0, Glucose 111 H, Calcium 7.7 L 09/04/19 03:20: WBC 14.9 H, RBC 4.06 L, Hgb 12.7 L, Hct 39.2 L, MCV 96.6 H, MCH 31.3, MCHC 32.4, RDW Std Deviation 54.6 H, RDW Coeff of Iram 15.3 H, Plt Count 168, MPV 10.4, Immature Gran % (Auto) 0.500, Neut % (Auto) 84.0 H, Lymph % (Auto) 5.9 L, [place] % (Auto) 8.3, Eos % (Auto) 1.0, Baso % (Auto) 0.3, Absolute Neuts (auto) 12.5 H, Absolute Lymphs (auto) 0.87, Nucleated RBC % 0 Current Medications Acetaminophen (Tylenol) 650 mg PO Q6H PRN PRN PRN Reason: Pain Score 1-10/Temp > 100.7 F Albuterol Sulfate (Ventolin Aerosols) 2.5 mg INHALATION Q2H PRN PRN PRN Reason: SOB &/OR WHEEZING Albuterol/Ipratropium (Duoneb) 3 ml INHALATION Q4H.RT [facility] Last Admin: 09/04/19 04:57 Dose: 3 ml Documented by: Aspirin (Ecotrin) 81 mg PO DAILYCM [facility] Cholecalciferol (Vitamin D (25mcg)) 5,000 unit PO DAILY [facility] Digoxin (Lanoxin) 250 mcg PO DAILY [facility] Docusate Sodium (Colace) 100 mg PO BID@1200,2200 [facility] Last Admin: 09/03/19 22:24 Dose: 100 mg Documented by: Duloxetine HCl (Cymbalta) 60 mg PO QHS [facility] Last Admin: 09/03/19 22:24 Dose: 60 mg Documented by: Fenofibrate (Tricor) 145 mg PO LUNCH [facility] Ferrous Sulfate (Ferrous Sulfate) 325 mg PO DAILYCM [facility] Folic Acid (Folic Acid) 1 mg PO DAILY@1200 [facility] Gabapentin (Neurontin) 1,200 mg PO QHS [facility] Last Admin: 09/03/19 22:27 Dose: 1,200 mg Documented by: Glucagon () 1 mg IM .X1 PRN PRN Reason: Hypoglycemia Azithromycin 500 mg/ Dextrose 255 mls @ 250 mls/hr IV Q24@2200 [facility] Ceftriaxone Sodium 2 gm/ (Sodium Chloride) 50 mls @ 100 mls/hr IV Q24@2200 [facility] Sodium Chloride () 250 mls @ 15 mls/hr IV .[id number] PRN PRN Reason: Saline Flush Sodium Chloride () 250 mls @ 15 mls/hr IV .[id number] PRN PRN Reason: Additional IVPB Infusion Dextrose (Dextrose 10%-Water) 250 mls @ 999 mls/hr IV .Q16M PRN; Protocol PRN Reason: HYPOGLYCEMIA Sodium Chloride () 1,000 mls @ 100 mls/hr IV .Q10H [facility] Stop: 09/04/19 08:21 Last Infusion: 09/04/19 06:00 Dose: 100 mls/hr Documented by: Insulin Human Lispro (Humalog [place] ([facility])) [facility]; Protocol Last Admin: 09/03/19 22:25 Dose: Not Given Documented by: Lactobacillus Acidophilus (Acidophilus) 1 tablet PO DAILY [facility] Melatonin (Melatonin) 3 mg PO QHS PRN PRN PRN Reason: INSOMNIA Multivitamins/Minerals (Healthy Eyes (Bk)) 1 capsule PO BID [facility] Last Admin: 09/03/19 22:27 Dose: 1 capsule Documented by: Ondansetron HCl (Zofran) 4 mg IV Q8H PRN PRN PRN Reason: NAUSEA/VOMITING Pantoprazole Sodium (Protonix) 20 mg PO QHS [facility] Last Admin: 09/03/19 22:27 Dose: 20 mg Documented by: Potassium Chlor[facility] (K-Dur) [facility] Stop: 09/04/19 17:01 Pramipexole Dihydrochloride (Mirapex) 0.5 mg PO TID [facility] Last Admin: 09/04/19 06:00 Dose: 0.5 mg Documented by: Pravastatin Sodium (Pravachol) 40 mg PO QHS [facility] Last Admin: 09/03/19 22:26 Dose: 40 mg Documented by: Rivaroxaban (Xarelto) 10 mg PO DAILY@1700 [facility] Sodium Chloride () 10 - 40 ml IV UD PRN PRN Reason: SALINE FLUSH Tamsulosin HCl (Flomax) 0.4 mg PO QHS [facility] Last Admin: 09/03/19 22:25 Dose: 0.4 mg Documented by: Clinical Impression(s) from Imaging Studies Chest X-Ray 09/03/19 18:42 IMPRESSION: 1. Evidence of prior cardiac surgery. The heart is borderline enlarged. 2. Mild interstitial changes in the lungs. Chronic versus acute. 3. Stable right jugular Port-A-Cath. Electronically Signed: Timmy Joshua DO at 19:01 EDT Tel [phone], Service support , Assessment/Plan Active and Suspected Problems (Last Reviewed 09/03/19 @ 21:[address] Tony Foreman MD) Severe sepsis (Acute) Pneumonia (Acute) RECOMMENDATIONS: 1. Continue empiric antibiotic therapy 2. Okay to discontinue coronavirus precautions 3. Wean oxygen as tolerated 4. Wound nurse to evaluate left foot ulcer 5. Increase activity as tolerated 6. Initiate home CPAP/BiPAP therapy 7. Possible transfer later today out of the intensive care unit pending clinical course IMPRESSIONS: 1. Severe sepsis secondary to UTI with pyelonephritis Reporting significant fever, dysuria and foul-smelling urine at home. Patient has received Rocephin and azithromycin. Patient does have a lower extremity ulcer, but does not appear to have associated cellulitis. Rocephin should be sufficient coverage. Patient does have some interstitial findings on chest x-ray, but lacks any respiratory symptoms to suggest pneumonia. Await respiratory pathogen panel, but do not have high clinical suspicion for coronavirus at this time. These precautions can likely be discontinued from my perspective. 2. Diabetes mellitus Patient with some elevated blood sugars on presentation. Clinical suspicion for an element of endogenous steroid with hyperglycemia. Would hold patient's metformin as he would be at risk for developing lactic acidosis. Agree with sliding scale insulin for now. Likely okay to have a p.o. diet if tolerates. 3. Chronic systolic CHF with chronic A. fib Patient's last ejection fraction in June was 50% with global LV dysfunction. Patient also has an IVCD and an elevated right ventricular systolic pressure of 73 mmHg. This would account for patient's bilateral leg edema. Likely okay to resume Lasix therapy from my perspective as patient's blood pressures have been adequate. Continue Maycol bandages for bilateral lower extremity swelling. Likely okay to reinitiate Lopressor, but would hold losartan given concerns for possible acute kidney injury with severe sepsis. 4. Hypertension/obesity/HEBER/chronic left toe wound/Parkinson's/depres sameer/anxiety Complicates care, management, recovery and prognosis. Likely okay to continue with baseline medications. Patient reportedly has had MRSA in lower extremity wound, but this does not appear to be acutely infected. We will have wound nurse evaluate the toe for barrier precautions. Inpatient E&M: 23060 Init Hosp L3
[2019-09-04] MEDS: Aspirin E.C. 81 MG Tablet PO (08:38)
[2019-09-04] MEDS: Ferrous Sulfate 325 MG Tablet PO (08:39)
[2019-09-04 09:26] LABS: Bedside Glucose 115 mg/dL (70-110)
--- NOTE | 2019-09-04 10:01 | CM.UR ---
Participated in interdisciplinary rounds. Remains on IVAB for urosepsis. hx of frequent UTIs. + wheezy. Declined using our bipap and will have his own brought in. Has decreased K+ so given K+ replacement. + afib at baseline. Case management to follow for any needs. Lorie Grant RN, CCM.
[2019-09-04] MEDS: Multivitamin (Healthy Eyes) Capsule 1 CAP PO ×2 (10:37→22:16)
[2019-09-04] MEDS: Digoxin 250 MCG Tablet PO (10:37)
--- NOTE | 2019-09-04 11:15 | PN_ITS ---
Patient Problems: Active and Suspected Problems (Last Reviewed 09/03/19 @ 21:[address] Tony Foreman MD) Severe sepsis (Acute) Pneumonia (Acute) Reason for Visit: Follow-up on severe sepsis secondary to UTI Subjective: Patient was seen and examined. He feels improved. Remains on 2L oxygen. Denies fever or chills. Has low grade fever. Vitals remain stable. In ICU. Objective: Physical exam: General: Alert, Oriented x3, Cooperative, not pale, not jaundiced, obese HEENT: Atraumatic, PERRLA, EOMI, Normocephalic Neck: Supple, Trachea Midline Lungs: Clear to auscultation, Normal air movement Cardiovascular: Normal S1, Normal S2, No murmurs, Irregular Rate Abdomen: Bowel Sounds Present, Soft, Non Tender Extremities: Edema +2, bilateral lower legs Skin: No rashes, Ulcer/ Wound - Ulcer of plantar side of left big toe, - Musculoskeletal: No Tenderness to Palpation of Joints or Extremities Neurological: Cranial nerves II-XII grossly intact Psych/Mental Status: Normal Affect, Appropriate Vitals/I&O's: Vital Signs Temp Pulse Resp BP Pulse Ox 99.3 F H 78 18 159/107 H 95 09/04/19 08:00 09/04/19 09:00 09/04/19 08:30 09/04/19 09:00 09/04/19 09:00 Oxygen Flow Rate (L/min) 3 Oxygen Delivery Method Nasal Cannula Weight: 132.5 kg Body Mass Index (BMI) 41.6 Finger Stick Blood Glucose 121 Intake and Output for Last 24 Hours 09/02/19 09/03/19 09/04/19 23:59 23:59 23:59 Intake Total 1190 / 1516.67 1480.00 / 1480.00 Output Total 1200 / 1200 Balance 1190 / 1291.67 280.00 / 280.00 Microbiology Past 72 Hours 09/03/19 18:35 Urine Catheter - Catheter Urine Culture - Preliminary Presumptive E. coli 09/03/19 18:50 Mucosa - Nasopharyngeal Respiratory Panel (PCR) - Final 09/03/19 18:35 Urine Catheter - Catheter Streptococcus pneumoniae Antigen (M - Final 09/03/19 18:35 Urine Catheter - Catheter Legionella Antigen - Final 09/03/19 18:50 Mucosa - Nasopharyngeal Influenza Types A,B Direct FA (GENO) - Final Laboratory Results 09/03/19 18:35: WBC 15.4 H, RBC 4.01 L, Hgb 12.5 L, Hct 37.9 L, MCV 94.5 H, MCH 31.2, MCHC 33.0, RDW Std Deviation 52.7 H, RDW Coeff of Iram 15.3 H, Plt Count 206, MPV 10.3, Immature Gran % (Auto) 0.800, Neut % (Auto) 87.5 H, Lymph % (Auto) 3.4 L, [place] % (Auto) 7.3, Eos % (Auto) 0.7, Baso % (Auto) 0.3, Absolute Neuts (auto) 13.4 H, Absolute Lymphs (auto) 0.52 L, Nucleated RBC % 0, Differential Comment , Platelet Estimate ADEQUATE, RBC Morphology N CHROM, Anisocytosis 1+ 09/03/19 18:35: Sodium 137, Potassium 3.6, Chloride 100, Carbon Dioxide 32.0, Anion Gap 5, BUN 16, Creatinine 1.29, Estim Creat Clear Calc 52.66, Est GFR (MDRD) Af Amer 70, Est GFR (MDRD) Non-Af 58 L, BUN/Creatinine Ratio 12.4, Glucose 169 H, Calcium 8.8, Total Bilirubin 1.20 H, AST 17, ALT 14 L, Alkaline Phosphatase 67, Total Protein 6.6, Albumin 3.0 L, Globulin 3.6, Albumin/Globulin Ratio 0.8 L 09/03/19 18:35: Lactic Acid 2.1 H* 09/03/19 18:35: Urine Color Yellow, Urine Clarity Sl. Cloudy, Urine pH 6.0, Ur Specific [place] 1.010, Urine Protein 100 H, Urine Glucose (UA) Normal, Urine Ketones Negative, Urine Occult Blood 25 H, Urine Nitrite Positive H, Urine Bilirubin Negative, Urine Urobilinogen 4 H, Ur Leukocyte Esterase 500 H, Urine RBC 0-5 SEEN, Urine WBC 10-25 SEEN, Ur Squamous Epith Cells 0 SEEN, Urine Bacteria 4+, Urine Mucus 0 SEEN 09/03/19 22:18: POC Glucose 118 H 09/03/19 23:10: Lactic Acid 0.9 09/04/19 03:20: Sodium 140, Potassium 3.3 L, Chloride 103, Carbon Dioxide 33.0 H , Anion Gap 4 L, BUN 13, Creatinine 1.00, Estim Creat Clear Calc 67.93, Est GFR (MDRD) Af Amer 94, Est GFR (MDRD) Non-Af 78, BUN/Creatinine Ratio 13.0, Glucose 111 H, Calcium 7.7 L 09/04/19 03:20: WBC 14.9 H, RBC 4.06 L, Hgb 12.7 L, Hct 39.2 L, MCV 96.6 H, MCH 31.3, MCHC 32.4, RDW Std Deviation 54.6 H, RDW Coeff of Iram 15.3 H, Plt Count 168, MPV 10.4, Immature Gran % (Auto) 0.500, Neut % (Auto) 84.0 H, Lymph % (Auto) 5.9 L, [place] % (Auto) 8.3, Eos % (Auto) 1.0, Baso % (Auto) 0.3, Absolute Neuts (auto) 12.5 H, Absolute Lymphs (auto) 0.87, Nucleated RBC % 0 09/04/19 08:24: POC Glucose 115 H Current Medications Acetaminophen (Tylenol) 650 mg PO Q6H PRN PRN PRN Reason: Pain Score 1-10/Temp > 100.7 F Albuterol Sulfate (Ventolin Aerosols) 2.5 mg INHALATION Q2H PRN PRN PRN Reason: SOB &/OR WHEEZING Albuterol/Ipratropium (Duoneb) 3 ml INHALATION Q4H.RT [facility] Last Admin: 09/04/19 08:36 Dose: 3 ml Documented by: Aspirin (Ecotrin) 81 mg PO DAILYCM [facility] Last Admin: 09/04/19 08:38 Dose: 81 mg Documented by: Cholecalciferol (Vitamin D (25mcg)) 5,000 unit PO DAILY [facility] Last Admin: 09/04/19 10:37 Dose: 5,000 unit Documented by: Digoxin (Lanoxin) 250 mcg PO DAILY [facility] Last Admin: 09/04/19 10:37 Dose: 250 mcg Documented by: Docusate Sodium (Colace) 100 mg PO BID@1200,2200 [facility] Last Admin: 09/03/19 22:24 Dose: 100 mg Documented by: Duloxetine HCl (Cymbalta) 60 mg PO QHS [facility] Last Admin: 09/03/19 22:24 Dose: 60 mg Documented by: Fenofibrate (Tricor) 145 mg PO LUNCH [facility] Ferrous S[facility] ([facility]ous Sulfate) [facility] Admin: 09/04/19 08:39 Dose: 325 mg Documented by: Folic Acid (Folic Acid) 1 mg PO DAILY@1200 NATALIE Gabapentin (Neurontin) 1,200 mg PO QHS [facility] Last Admin: 09/03/19 22:27 Dose: 1,200 mg Documented by: Glucagon () 1 mg IM .X1 PRN PRN Reason: Hypoglycemia Azithromycin 500 mg/ Dextrose 255 mls @ 250 mls/hr IV Q24@2200 NATALIE Ceftriaxone Sodium 2 gm/ (Sodium Chloride) 50 mls @ 100 mls/hr IV Q24@2200 NATALIE Sodium Chloride () 250 mls @ 15 mls/hr IV .[id number] PRN PRN Reason: Saline Flush Sodium Chloride () 250 mls @ 15 mls/hr IV .[id number] PRN PRN Reason: Additional IVPB Infusion Dextrose (Dextrose 10%-Water) 250 mls @ 999 mls/hr IV .Q16M PRN; Protocol PRN Reason: HYPOGLYCEMIA Insulin Human Lispro (Humalog [place] (Bk)) 0 unit SC ACHS [facility]; Protocol Last Admin: 09/04/19 08:36 Dose: Not Given Documented by: Lactobacillus Acidophilus (Acidophilus) 1 tablet PO DAILY [facility] Last Admin: 09/04/19 08:37 Dose: 1 tablet Documented by: Melatonin (Melatonin) 3 mg PO QHS PRN PRN PRN Reason: INSOMNIA Multivitamins/Minerals (Healthy Eyes (Bk)) 1 capsule PO BID [facility] Last Admin: 09/04/19 10:37 Dose: 1 capsule Documented by: Nutritional Formula (Marcus - [place] Flavor) 1 packet PO BIDCM [facility] Ondansetron HCl (Zofran) 4 mg IV Q8H PRN PRN PRN Reason: NAUSEA/VOMITING Pantoprazole Sodium (Protonix) 20 mg PO QHS [facility] Last Admin: 09/03/19 22:27 Dose: 20 mg Documented by: Potassium Chloride (K-Dur) 20 meq PO BIDCM [facility] Stop: 09/04/19 17:01 Last Admin: 09/04/19 10:37 Dose: 20 meq Documented by: Pramipexole Dihydrochloride (Mirapex) 0.5 mg PO TID [facility] Last Admin: 09/04/19 06:00 Dose: 0.5 mg Documented by: Pravastatin Sodium (Pravachol) 40 mg PO QHS [facility] Last Admin: 09/03/19 22:26 Dose: 40 mg Documented by: Rivaroxaban (Xarelto) 10 mg PO DAILY@1700 [facility] Sodium Chloride () 10 - 40 ml IV UD PRN PRN Reason: SALINE FLUSH Tamsulosin HCl (Flomax) 0.4 mg PO QHS [facility] Last Admin: 09/03/19 22:25 Dose: 0.4 mg Documented by: STROKE Vital Signs/Narrative: Vital Signs Temp Pulse Resp BP Pulse Ox 09/04/19 09:00 78 159/107 H 95 09/04/19 08:30 90 18 98 09/04/19 08:00 99.3 F H 88 30 H 105/58 L 97 09/04/19 07:55 76 Medical Necessity - Tobacco Use Smoking Status: Former smoker Assessment/Plan All Active Problems (Last Reviewed 09/03/19 @ 21:[address] 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 Severe sepsis secondary E. coli UTI, improving, continue on IV rocephin Pneumonia ruled out with negative CXR, influenza and respiratory panel negative. We will continue on IV ceftriaxone, follow-up on urine culture 2. Hypertension, fairly controlled, resume patient's metoprolol and continue to hold losartan 3. Chronic left toe ulcer, wound RN consulted 4. Chronic A. fib, controlled, continue metoprolol, digoxin, Xarelto Check digoxin levels 5. Chronic systolic CHF, EF 50%, will resume home Lasix, strict I's and O's, fluid restriction Daily weights 6. Type 2 DM, sugars are controlled, home metformin on hold, continue with insulin sliding scale with blood glucose checks 7.HEBER on CPAP 8. Morbid obesity, BMI 41.9, lifestyle modification commended 10. Parkinson's disease, on Mirapex 11. Anxiety/depression, continue on Cymbalta 12. DVT PPx-on Xarelto Inpatient E&M: [id number] Init Hosp L3
[2019-09-04] MEDS: Folic Acid 1 MG Tablet PO (12:40)
[2019-09-04] MEDS: Docusate Sodium 100 MG Capsule PO ×2 (12:40→22:18)
[2019-09-04] MEDS: Fenofibrate 145 MG Tablet PO (12:40)
[2019-09-04 12:46] LABS: Bedside Glucose 119 mg/dL (70-110)
--- NOTE | 2019-09-04 15:25 | CM.UR ---
RN CM Assessment Introduced myself and explained my role as nurse CM to the patient. Patient sitting up in bed receiving care from other staff. Patient agreed to speak with this CM. Patient is alert, oriented and able?to participate in RN CM Assessment. ?Care providers, pharmacy, and demographics verified. Presentation: Fever Admit Dx: Urosepsis Re-Admit: No Barriers/Issues: None. PCP: Fany Hobson. also has PCP at [facility] but can?t remember the name. Specialists: Cardio- Dr Garcia, Pulm- Dr Salazar, Neuro- Dr Davis, Nephro: He can?t remember the name. Preferred Pharmacy: [facility], [place] [facility]. Insurance: [facility], [employer] for life Rx Benefit:?Yes, [facility] LNOK: Ellen Haney LW/HPOA: During last visit documentation that updated advance directives were completed (in June) however not scanned to Chart. HPOA is , Ellen. Living Arrangements:? Lives with in a single story home with 3 steps to enter home. States bathroom was remodeled and has handicap shower with bench inside and out. ADL?s: Ambulates with a Rollator, Independent with ADLs. Transportation: Both patient and drive. Patient states he drives only when necessary. Does use van transportation for [facility]. DME: Rollator, manual WC, power scooter, stairglide, bipap with O2 bled 3L at night, Portable O2 tanks, Concentrator, Nebulizer. DME co: [facility] HHC: States had [facility] before SNF: None Goal: Home DC PLAN: Home. Possible need for HHC again. Also if change in O2 script will need faxed to [facility].
[2019-09-04] MEDS: Rivaroxaban 10 MG Tablet PO (16:20)
[2019-09-04 16:41] LABS: Bedside Glucose 76 mg/dL (70-110)
[2019-09-04] MEDS: Acetaminophen 325 MG Tablet 650 MG PO (17:54)
--- NOTE | 2019-09-04 19:20 | CPS ---
set up pt with home BIPAP unit with 3 lpm O2 bleed in
[2019-09-04] MEDS: Pravastatin 40 MG Tablet PO (22:17)
[2019-09-04] MEDS: Gabapentin 600 MG Tablet 1200 MG PO (22:17)
[2019-09-04] MEDS: DULoxetine Hcl 60 MG Capsule PO (22:17)
[2019-09-04] MEDS: Pantoprazole Sodium 20 MG Tablet PO (22:17)
[2019-09-04] MEDS: Tamsulosin HCl 0.4 MG Capsule PO (22:18)
[2019-09-04] MEDS: Furosemide 40 MG Tablet PO (22:19)
[2019-09-04] MEDS: Metoprolol Tartrate 50 MG Tablet PO (22:19)
[2019-09-04 22:36] LABS: Bedside Glucose 136 mg/dL (70-110)
[2019-09-05] VITALS (24 sets, daily range): BP systolic 105–165; BP diastolic 51–80; PULSE 59–107; RESP 18–26; TEMP 36.6–37.5; O2SAT 93–100
[2019-09-05] MEDS: Ipratropium/Albuterol Sulfate 3 ML AMPUL.NEB INHALATION ×4 (02:45→19:47)
[2019-09-05 04:31] LABS: Absolute Lymphocyte Count 0.96 X10^3/uL (0.83-4.51); Absolute Neutrophil Count 11.4 X10^3/uL (2.0-7.7); Basophil# 0.05 X10^3/uL; Basophil% 0.4 % (0-1); Eosinophil# 0.12 X10^3/uL; Eosinophils% 0.9 % (0-5); Hematocrit 33.8 % (40-54); Lymphocyte # 0.96 X10^3/ul (4.0); Lymphocyte % 6.8 % (19-41); Mean Corp Hgb Conc 32.5 g/dL (32-36); Mean Corpuscular Hgb 30.8 pg (27.0-32.0); Mean Corpuscular Volume 94.7 fL (80-94); Mean Platelet Vol. 10.7 fl (6.2-12.0); Monocyte# 1.49 X10^3/uL; Monocyte% 10.6 % (0-10); NRBC Flagged by Analyzer 0 % (0-5); Neutrophil # 11.42 X10^3/uL (2.7-7.7); Neutrophil % 80.9 % (47-70); Platelet Count 150 K/mm3 (150-450); RBC Distribution Width CV 15.9 % (11.6-14.6); RBC Distribution Width SD 54.9 fl (35.1-43.9); Red Blood Count 3.57 M/mm3 (4.6-6.2); White Blood Count 14.1 K/mm3 (4.4-11.0)
[2019-09-05 04:52] LABS: ALB/GLOB Ratio 0.7 RATIO (0.9-2.4); AST(SGOT) 20 U/L (15-37); Alanine Aminotransfer ALT/SGPT 12 U/L (16-61); Albumin, Serum 2.4 g/dL (3.2-5.0); Alkaline Phosphatase 53 U/L (45-117); Anion Gap 6 (5-15); BUN 17 mg/dL (7-18); Calcium,Total 8.2 mg/dL (8.5-10.1); Chloride 103 mmol/L (98-107); Creatinine, Serum 1.06 mg/dL (0.70-1.30); EST Glomerular Filtration Rate 73 mL/min (>60); Est Glom Filt Rate - Afr Amer 88 mL/min (>60); Estimated Creatinine Clearance 64.09 ml/min; Globulin 3.6 g/dL (2.2-4.2); Glucose 119 mg/dL (74-106); Potassium 4.2 mmol/L (3.5-5.1); Sodium Level 137 mmol/L (136-145)
[2019-09-05] MEDS: Pramipexole Di-HCl 0.5 MG Tablet PO ×3 (05:41→21:38)
--- NOTE | 2019-09-05 06:54 | PN_ITS ---
Subjective: Patient did well overnight. No acute issues were reported. Patient was placed on his home BiPAP unit and tolerated well. Patient has not required any Levophed and was actually initiated on Lopressor overnight secondary to tachycardia. Patient did have significant fever over the last 24 hours, but tolerated it well. General: Alert, Oriented x3, Cooperative, No apparent distress, - - Morbidly obese. No conversational dyspnea. HEENT: Atraumatic, PERRLA, EOMI, Normocephalic, - - No scleral icterus or injection noted Oral: Moist Mucosa, No Gingival or Mucosal Lesions/ Ulcerations Neck: Supple, No JVD, No Nodes, Trachea Midline Lungs: No rhonchi, No wheeze, No rales, Diminished, - - Symmetric expansion. No dullness to percussion. Cardiovascular: Normal S1, Normal S2, No murmurs, Irregular Rate, No rub noted, No Gallop Abdomen: Bowel Sounds Present, Soft, Non Tender, Non-Distended, Obese Extremities: No clubbing, No cyanosis, Edema Skin: - - No change from previous Musculoskeletal: No Tenderness to Palpation of Joints or Extremities Lymphatic: No Cervical, Supraclavicular, or Inguinal Adenopathy Neurological: Cranial nerves II-XII grossly intact, Neuro grossly intact, Motor Exam 5/5 strength throughout Psych/Mental Status: Alert and oriented to time, place, person, mood and affect Vital Signs Temp Pulse Resp BP Pulse Ox 36.7 C 60 22 H 137/62 H 93 09/05/19 04:00 09/05/19 06:00 09/05/19 06:00 09/05/19 06:00 09/05/19 06:00 Oxygen Flow Rate (L/min) 2 Oxygen Delivery Method Room Air Weight: 134.3 kg Body Mass Index (BMI) 41.6 Finger Stick Blood Glucose 121 Intake and Output for Last 24 Hours 09/03/19 09/04/19 09/05/19 23:59 23:59 23:59 Intake Total 1190 / 1516.67 1530.00 / 2010.00 680 / 680 Output Total 1800 / 2049 500 / 500 Balance 1190 / 1291.67 -270.00 / -40.00 180 / 180 Labs (Last 48 Hours) 09/03/19 09/03/19 09/03/19 18:35 18:35 18:35 WBC 15.4 H RBC 4.01 L Hgb 12.5 L Hct 37.9 L MCV 94.5 H MCH 31.2 MCHC 33.0 RDW Std Deviation 52.7 H RDW Coeff of Iram 15.3 H Plt Count 206 MPV 10.3 Immature Gran % (Auto) 0.800 Neut % (Auto) 87.5 H Lymph % (Auto) 3.4 L [place] % (Auto) 7.3 Eos % (Auto) 0.7 Baso % (Auto) 0.3 Absolute Neuts (auto) 13.4 H Absolute Lymphs (auto) 0.52 L Nucleated RBC % 0 Differential Comment Platelet Estimate ADEQUATE RBC Morphology N CHROM Anisocytosis 1+ Sodium 137 Potassium 3.6 Chloride 100 Carbon Dioxide 32.0 Anion Gap 5 BUN 16 Creatinine 1.29 Estim Creat Clear Calc 52.66 Est GFR (MDRD) Af Amer 70 Est GFR (MDRD) Non-Af 58 L BUN/Creatinine Ratio 12.4 Glucose 169 H Lactic Acid 2.1 H* Calcium 8.8 Total Bilirubin 1.20 H AST 17 ALT 14 L Alkaline Phosphatase 67 Total Protein 6.6 Albumin 3.0 L Globulin 3.6 Albumin/Globulin Ratio 0.8 L Urine Color Urine Clarity Urine pH Ur Specific [place] Urine Protein Urine Glucose (UA) Urine Ketones Urine Occult Blood Urine Nitrite Urine Bilirubin Urine Urobilinogen Ur Leukocyte Esterase Urine RBC Urine WBC Ur Squamous Epith Cells Urine Bacteria Urine Mucus Digoxin POC Glucose 09/03/19 09/03/19 09/03/19 18:35 22:18 23:10 WBC RBC Hgb Hct MCV MCH MCHC RDW Std Deviation RDW Coeff of Iram Plt Count MPV Immature Gran % (Auto) Neut % (Auto) Lymph % (Auto) [place] % (Auto) Eos % (Auto) Baso % (Auto) Absolute Neuts (auto) Absolute Lymphs (auto) Nucleated RBC % Differential Comment Platelet Estimate RBC Morphology Anisocytosis Sodium Potassium Chloride Carbon Dioxide Anion Gap BUN Creatinine Estim Creat Clear Calc Est GFR (MDRD) Af Amer Est GFR (MDRD) Non-Af BUN/Creatinine Ratio Glucose Lactic Acid 0.9 Calcium Total Bilirubin AST ALT Alkaline Phosphatase Total Protein Albumin Globulin Albumin/Globulin Ratio Urine Color Yellow Urine Clarity Sl. Cloudy Urine pH 6.0 Ur Specific [place] 1.010 Urine Protein 100 H Urine Glucose (UA) Normal Urine Ketones Negative Urine Occult Blood 25 H Urine Nitrite Positive H Urine Bilirubin Negative Urine Urobilinogen 4 H Ur Leukocyte Esterase 500 H Urine RBC 0-5 SEEN Urine WBC 10-25 SEEN Ur Squamous Epith Cells 0 SEEN Urine Bacteria 4+ Urine Mucus 0 SEEN Digoxin POC Glucose 118 H 09/04/19 09/04/19 09/04/19 03:20 03:20 08:24 WBC 14.9 H RBC 4.06 L Hgb 12.7 L Hct 39.2 L MCV 96.6 H MCH 31.3 MCHC 32.4 RDW Std Deviation 54.6 H RDW Coeff of Iram 15.3 H Plt Count 168 MPV 10.4 Immature Gran % (Auto) 0.500 Neut % (Auto) 84.0 H Lymph % (Auto) 5.9 L [place] % (Auto) 8.3 Eos % (Auto) 1.0 Baso % (Auto) 0.3 Absolute Neuts (auto) 12.5 H Absolute Lymphs (auto) 0.87 Nucleated RBC % 0 Differential Comment Platelet Estimate RBC Morphology Anisocytosis Sodium 140 Potassium 3.3 L Chloride 103 Carbon Dioxide 33.0 H Anion Gap 4 L BUN 13 Creatinine 1.00 Estim Creat Clear Calc 67.93 Est GFR (MDRD) Af Amer 94 Est GFR (MDRD) Non-Af 78 BUN/Creatinine Ratio 13.0 Glucose 111 H Lactic Acid Calcium 7.7 L Total Bilirubin AST ALT Alkaline Phosphatase Total Protein Albumin Globulin Albumin/Globulin Ratio Urine Color Urine Clarity Urine pH Ur Specific [place] Urine Protein Urine Glucose (UA) Urine Ketones Urine Occult Blood Urine Nitrite Urine Bilirubin Urine Urobilinogen Ur Leukocyte Esterase Urine RBC Urine WBC Ur Squamous Epith Cells Urine Bacteria Urine Mucus Digoxin POC Glucose 115 H 09/04/19 09/04/19 09/04/19 12:23 12:35 16:28 WBC RBC Hgb Hct MCV MCH MCHC RDW Std Deviation RDW Coeff of Iram Plt Count MPV Immature Gran % (Auto) Neut % (Auto) Lymph % (Auto) [place] % (Auto) Eos % (Auto) Baso % (Auto) Absolute Neuts (auto) Absolute Lymphs (auto) Nucleated RBC % Differential Comment Platelet Estimate RBC Morphology Anisocytosis Sodium Potassium Chloride Carbon Dioxide Anion Gap BUN Creatinine Estim Creat Clear Calc Est GFR (MDRD) Af Amer Est GFR (MDRD) Non-Af BUN/Creatinine Ratio Glucose Lactic Acid Calcium Total Bilirubin AST ALT Alkaline Phosphatase Total Protein Albumin Globulin Albumin/Globulin Ratio Urine Color Urine Clarity Urine pH Ur Specific [place] Urine Protein Urine Glucose (UA) Urine Ketones Urine Occult Blood Urine Nitrite Urine Bilirubin Urine Urobilinogen Ur Leukocyte Esterase Urine RBC Urine WBC Ur Squamous Epith Cells Urine Bacteria Urine Mucus Digoxin 2.40 H* POC Glucose 119 H 76 09/04/19 09/05/19 09/05/19 22:14 04:20 04:20 WBC 14.1 H RBC 3.57 L Hgb 11.0 L Hct 33.8 L MCV 94.7 H MCH 30.8 MCHC 32.5 RDW Std Deviation 54.9 H RDW Coeff of Iram 15.9 H Plt Count 150 MPV 10.7 Immature Gran % (Auto) 0.400 Neut % (Auto) 80.9 H Lymph % (Auto) 6.8 L [place] % (Auto) 10.6 H Eos % (Auto) 0.9 Baso % (Auto) 0.4 Absolute Neuts (auto) 11.4 H Absolute Lymphs (auto) 0.96 Nucleated RBC % 0 Differential Comment Platelet Estimate RBC Morphology Anisocytosis Sodium 137 Potassium 4.2 Chloride 103 Carbon Dioxide 28.0 Anion Gap 6 BUN 17 Creatinine 1.06 Estim Creat Clear Calc 64.09 Est GFR (MDRD) Af Amer 88 Est GFR (MDRD) Non-Af 73 BUN/Creatinine Ratio 16.0 Glucose 119 H Lactic Acid Calcium 8.2 L Total Bilirubin 1.10 H AST 20 ALT 12 L Alkaline Phosphatase 53 Total Protein 6.0 L Albumin 2.4 L Globulin 3.6 Albumin/Globulin Ratio 0.7 L Urine Color Urine Clarity Urine pH Ur Specific [place] Urine Protein Urine Glucose (UA) Urine Ketones Urine Occult Blood Urine Nitrite Urine Bilirubin Urine Urobilinogen Ur Leukocyte Esterase Urine RBC Urine WBC Ur Squamous Epith Cells Urine Bacteria Urine Mucus Digoxin POC Glucose 136 H Microbiology 09/03/19 18:35 Urine Catheter - Catheter Urine Culture - Preliminary Presumptive E. coli 09/03/19 18:50 Mucosa - Nasopharyngeal Respiratory Panel (PCR) - Final 09/03/19 18:35 Urine Catheter - Catheter Streptococcus pneumoniae Antigen (M - Final 09/03/19 18:35 Urine Catheter - Catheter Legionella Antigen - Final 09/03/19 18:50 Mucosa - Nasopharyngeal Influenza Types A,B Direct FA (GENO) - Final Medical Necessity - Tobacco Use Smoking Status: Former smoker Assessment/Plan All Active Problems (Last Reviewed 09/03/19 @ 21:[address] Tony Foreman MD) UTI (urinary tract infection) (Acute) Severe sepsis (Acute) Pneumonia (Acute) 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 (Resolved) RECOMMENDATIONS: 1. Continue empiric antibiotic therapy 2. Increase activity as tolerated 3. Walking oximetry prior to discharge 4. Wound nurse to evaluate left foot ulcer 5. Continue home CPAP/BiPAP therapy with sleep 6. Hemodynamically stable on room air. Will sign off from a critical care perspective IMPRESSIONS: 1. Severe sepsis secondary to UTI with pyelonephritis Reporting significant fever, dysuria and foul-smelling urine at home. Patient has received Rocephin and azithromycin for concerns of community- acquired pneumonia initially. Patient does have a lower extremity ulcer, but does not appear to have associated cellulitis. Rocephin should be sufficient coverage given E. coli on urine studies. Patient does have some interstitial findings on chest x-ray, but lacks any respiratory symptoms to suggest pneumonia. 2. Diabetes mellitus Patient with some elevated blood sugars on presentation. Clinical suspicion for an element of endogenous steroid with hyperglycemia. Agree with sliding scale insulin for now. Advance p.o. diet. Likely okay to reinitiate metformin from my perspective 3. Chronic systolic CHF with chronic A. fib Patient's last ejection fraction in June was 50% with global LV dysfunction. Patient also has an IVCD and an elevated right ventricular systolic pressure of 73 mmHg. This would account for patient's bilateral leg edema. Likely okay to resume Lasix therapy from my perspective as patient's blood pressures have been adequate. Continue [place] bandages for bilateral lower extremity swelling. Would continue to hold losartan for now despite nor malization of renal function until blood pressure improves 4. Hypertension/obesity/HEBER/chronic left toe wound/Parkinson's/depression/anxiety Complicates care, management, recovery and prognosis. Likely okay to continue with baseline medications. Patient reportedly has had MRSA in lower extremity wound, but this does not appear to be acutely infected. We will have wound nurse evaluate the toe for barrier precautions. Inpatient E&M: 80851 [facility] Hosp L3
--- NOTE | 2019-09-05 08:06 | PN_ITS ---
Patient Problems: Active and Suspected Problems (Last Reviewed 09/03/19 @ 21:[address] Tony Foreman MD) Severe sepsis (Acute) Pneumonia (Acute) Reason for Visit: Follow-up on severe sepsis secondary to UTI Subjective: Patient was seen and examined. He feel better. Had an episode of rectal bleeding this morning. Patient denies it but was seen in toilet bowel by staff as well as some bleeding on his bed protector. Denies dizziness, SOB, palpitations. Had fever yesterday, Tmax 102.9F Objective: Physical exam: General: Alert, Oriented x3, Cooperative, not pale, not jaundiced, obese HEENT: Atraumatic, PERRLA, EOMI, Normocephalic Neck: Supple, Trachea Midline Lungs: Clear to auscultation, Normal air movement Cardiovascular: Normal S1, Normal S2, No murmurs, Irregular Rate Abdomen: Bowel Sounds Present, Soft, Non Tender Extremities: Edema +2, bilateral lower legs Skin: No rashes, Ulcer/ Wound - Ulcer of plantar side of left big toe, - Musculoskeletal: No Tenderness to Palpation of Joints or Extremities Neurological: Cranial nerves II-XII grossly intact Psych/Mental Status: Normal Affect, Appropriate Vitals/I&O's: Vital Signs Temp Pulse Resp BP Pulse Ox 98.1 F 60 22 H 137/62 H 93 09/05/19 04:00 09/05/19 06:00 09/05/19 06:00 09/05/19 06:00 09/05/19 06:00 Oxygen Flow Rate (L/min) 2 Oxygen Delivery Method Room Air Weight: 134.3 kg Body Mass Index (BMI) 41.6 Finger Stick Blood Glucose 121 Intake and Output for Last 24 Hours 09/03/19 09/04/19 09/05/19 23:59 23:59 23:59 Intake Total 1190 / 1516.67 1530.00 / 2010.00 680 / 680 Output Total 1800 / 0 500 / 500 Balance 1190 / 1291.67 -270.00 / -40.00 180 / 180 Microbiology Past 72 Hours 09/03/19 18:35 Urine Catheter - Catheter Urine Culture - Final Presumptive E. coli 09/03/19 18:50 Mucosa - Nasopharyngeal Respiratory Panel (PCR) - Final 09/03/19 18:35 Urine Catheter - Catheter Streptococcus pneumoniae Antigen (M - Final 09/03/19 18:35 Urine Catheter - Catheter Legionella Antigen - Final 09/03/19 18:50 Mucosa - Nasopharyngeal Influenza Types A,B Direct FA (GENO) - Final Laboratory Results 09/04/19 08:24: POC Glucose 115 H 09/04/19 12:23: POC Glucose 119 H 09/04/19 12:35: Digoxin 2.40 H* 09/04/19 16:28: POC Glucose 76 09/04/19 22:14: POC Glucose 136 H 09/05/19 04:20: WBC 14.1 H, RBC 3.57 L, Hgb 11.0 L, Hct 33.8 L, MCV 94.7 H, MCH 30.8, MCHC 32.5, RDW Std Deviation 54.9 H, RDW Coeff of Iram 15.9 H, Plt Count 150, MPV 10.7, Immature Gran % (Auto) 0.400, Neut % (Auto) 80.9 H, Lymph % (Auto) 6.8 L, [place] % (Auto) 10.6 H, Eos % (Auto) 0.9, Baso % (Auto) 0.4, Absolut e Neuts (auto) 11.4 H, Absolute Lymphs (auto) 0.96, Nucleated RBC % 0 09/05/19 04:20: Sodium 137, Potassium 4.2, Chloride 103, Carbon Dioxide 28.0, Anion Gap 6, BUN 17, Creatinine 1.06, Estim Creat Clear Calc 64.09, Est GFR (MDRD) Af Amer 88, Est GFR (MDRD) Non-Af 73, BUN/Creatinine Ratio 16.0, Glucose 119 H, Calcium 8.2 L, Total Bilirubin 1.10 H, AST 20, ALT 12 L, Alkaline Phosphatase 53, Total Protein 6.0 L, Albumin 2.4 L, Globulin 3.6, Albumin/Globulin Ratio 0.7 L Current Medications Acetaminophen (Tylenol) 650 mg PO Q6H PRN PRN PRN Reason: Pain Score 1-10/Temp > 100.7 F Last Admin: 09/04/19 17:54 Dose: 650 mg Documented by: Albuterol Sulfate (Ventolin Aerosols) 2.5 mg INHALATION Q2H PRN PRN PRN Reason: SOB &/OR WHEEZING Albuterol/Ipratropium (Duoneb) 3 ml INHALATION Q4H.RT [facility] Last Admin: 09/05/19 07:20 Dose: 3 ml Documented by: [facility]) [facility] Last Admin: 09/04/19 08:38 Dose: 81 mg Documented by: Cholecalciferol (Vitamin D (25mcg)) 5,000 unit PO DAILY [facility] Last Admin: 09/04/19 10:37 Dose: 5,000 unit Documented by: Docusate Sodium (Colace) 100 mg PO BID@1200,2200 [facility] Last Admin: 09/04/19 22:18 Dose: 100 mg Documented by: Duloxetine HCl (Cymbalta) 60 mg PO QHS [facility] Last Admin: 09/04/19 22:17 Dose: 60 mg Documented by: Fenofibrate (Tricor) 145 mg PO LUNCH [facility] Last Admin: 09/04/19 12:40 Dose: 145 mg Documented by: Ferrous Sulfate (Ferrous Sulfate) [facility] Last Admin: 09/04/19 08:39 Dose: 325 mg Documented by: Folic Acid (Folic Acid) 1 mg PO DAILY@1200 [facility] Last Admin: 09/04/19 12:40 Dose: 1 mg Documented by: Furosemide (Lasix) 40 mg PO BID [facility] Last Admin: 09/04/19 22:19 Dose: 40 mg Documented by: Gabapentin (Neurontin) 1,200 mg PO QHS [facility] Last Admin: 09/04/19 22:17 Dose: 1,200 mg Documented by: Glucagon () 1 mg IM .X1 PRN PRN Reason: Hypoglycemia Ceftriaxone Sodium 2 gm/ (Sodium Chloride) 50 mls @ 100 mls/hr IV Q24@2200 [facility] Last Infusion: 09/04/19 22:53 Dose: Infused Documented by: Sodium Chloride () 250 mls @ 15 mls/hr IV .[id number] PRN PRN Reason: Saline Flush Sodium Chloride () 250 mls @ 15 mls/hr IV .[id number] PRN PRN Reason: Additional IVPB Infusion Dextrose (Dextrose 10%-Water) 250 mls @ 999 mls/hr IV .Q16M PRN; Protocol PRN Reason: HYPOGLYCEMIA Insulin Human Lispro (Humalog Kwikpen (Bkc)) 0 unit SC ACHS [facility]; Protocol Last Admin: 09/04/19 22:26 Dose: Not Given Documented by: Lactobacillus Acidophilus (Acidophilus) 1 tablet PO DAILY [facility] Last Admin: 09/04/19 08:37 Dose: 1 tablet Documented by: Melatonin (Melatonin) 3 mg PO QHS PRN PRN PRN Reason: INSOMNIA Metoprolol Tartrate (Lopressor (Beta Taisha)) 50 mg PO QHS [facility] Last Admin: 09/04/19 22:19 Dose: 50 mg Documented by: Multivitamins/Minerals (Healthy Eyes (Bkc)) 1 capsule PO BID [facility] Last Admin: 09/04/19 22:16 Dose: 1 capsule Documented by: Nutritional Formula ([place] - [place] Flavor) [facility] Last Admin: 09/04/19 16:19 Dose: 1 packet Documented by: Ondansetron HCl (Zofran) 4 mg IV Q8H PRN PRN PRN Reason: NAUSEA/VOMITING Pantoprazole Sodium (Protonix) 20 mg PO QHS [facility] Last Admin: 09/04/19 22:17 Dose: 20 mg Documented by: Pramipexole Dihydrochloride (Mirapex) 0.5 mg PO TID [facility] Last Admin: 09/05/19 05:41 Dose: 0.5 mg Documented by: Pravastatin Sodium (Pravachol) 40 mg PO QHS [facility] Last Admin: 09/04/19 22:17 Dose: 40 mg Documented by: Rivaroxaban (Xarelto) 10 mg PO DAILY@1700 [facility] Last Admin: 09/04/19 16:20 Dose: 10 mg Documented by: Sodium Chloride () 10 - 40 ml IV UD PRN PRN Reason: SALINE FLUSH Tamsulosin HCl (Flomax) 0.4 mg PO QHS [facility] Last Admin: 09/04/19 22:18 Dose: 0.4 mg Documented by: STROKE Vital Signs/Narrative: Vital Signs Pulse Resp BP Pulse Ox 09/05/19 06:00 60 22 H 137/62 H 93 09/05/19 05:00 59 L 24 H 123/66 H 98 Medical Necessity - Tobacco Use Smoking Status: Former smoker Assessment/Plan All Active Problems (Last Reviewed 09/03/19 @ 21:[address] 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 He has a history of recurrent UTI and follows with urology. 1. Severe sepsis secondary to E. coli UTI, improving, History of recurrent E. coli UTIs, last ultrasound of the kidneys on 07/12/19 was normal He has been following with urology in the outpatient continue on IV Rocephin 2g daily Blood cultures are pending as of this morning Pneumonia ruled out with negative CXR, influenza and respiratory panel negative. Will transfer out of ICU 2. Hypokalemia, replaced, recheck this morning is normal. 3. Hypertension, controlled, on metoprolol, will resume Losartan 4. Chronic left toe ulcer, wound RN consulted 5. Chronic A. fib, controlled, continue metoprolol, Xarelto. Digoxin held yesterday as levels were high; 2.4, recheck is pending 6. Chronic systolic CHF, EF 50%, On Lasix, Will continue with strict I's and O's, fluid restriction. daily weights 7. Type 2 DM, sugars are controlled, home metformin on hold, continue with insulin sliding scale with blood glucose checks 8. HEBER on CPAP 9. Morbid obesity, BMI 41.9, lifestyle modification commended 10. Parkinson's disease, on Mirapex 11. Anxiety/depression, continue on Cymbalta 12. DVT PPx-on Xarelto Inpatient E&M: 58440 Subs Hosp L2
[2019-09-05] MEDS: Aspirin E.C. 81 MG Tablet PO (11:43)
[2019-09-05] MEDS: Multivitamin (Healthy Eyes) Capsule 1 CAP PO ×2 (11:44→21:36)
[2019-09-05] MEDS: Ferrous Sulfate 325 MG Tablet PO (11:44)
[2019-09-05] MEDS: Furosemide 40 MG Tablet PO ×2 (11:45→21:38)
[2019-09-05] MEDS: Folic Acid 1 MG Tablet PO (11:47)
[2019-09-05] MEDS: Fenofibrate 145 MG Tablet PO (11:48)
[2019-09-05 12:01] LABS: Bedside Glucose 109 mg/dL (70-110)
--- NOTE | 2019-09-05 13:30 | NURSING ---
Pt's Ellen made aware of transfer to PCU.
[2019-09-05] MEDS: Hydrocortisone 25 MG Suppository RECTAL (13:37)
[2019-09-05 15:03] LABS: Digoxin Level 1.47 ng/mL (0.80-2.00)
[2019-09-05] MEDS: Rivaroxaban 10 MG Tablet PO (16:20)
[2019-09-05 16:41] LABS: Bedside Glucose 111 mg/dL (70-110)
[2019-09-05] MEDS: Docusate Sodium 100 MG Capsule PO (21:35)
[2019-09-05] MEDS: Metoprolol Tartrate 50 MG Tablet PO (21:36)
[2019-09-05] MEDS: Gabapentin 600 MG Tablet 1200 MG PO (21:36)
[2019-09-05] MEDS: Pravastatin 40 MG Tablet PO (21:38)
[2019-09-05] MEDS: DULoxetine Hcl 60 MG Capsule PO (21:38)
[2019-09-05] MEDS: Tamsulosin HCl 0.4 MG Capsule PO (21:38)
[2019-09-05] MEDS: Pantoprazole Sodium 20 MG Tablet PO (21:39)
[2019-09-05] MEDS: Losartan Potassium 50 MG Tablet PO (21:44)
[2019-09-05] MEDS: 0.9% Saline Lock 10 ML Syringe IV (21:49)
[2019-09-05 22:01] LABS: Bedside Glucose 118 mg/dL (70-110)
[2019-09-06 02:35] VITALS: BP 135/70; PULSE 71; RESP 19; TEMP 36.6; O2SAT 95
[2019-09-06 03:21] VITALS: PULSE 82
[2019-09-06 06:39] LABS: Absolute Lymphocyte Count 1.15 X10^3/uL (0.83-4.51); Absolute Neutrophil Count 7.7 X10^3/uL (2.0-7.7); Basophil# 0.05 X10^3/uL; Basophil% 0.5 % (0-1); Eosinophil# 0.33 X10^3/uL; Eosinophils% 3.2 % (0-5); Hematocrit 34.4 % (40-54); Hemoglobin 10.7 g/dL (13.0-16.5); Lymphocyte # 1.15 X10^3/ul (4.0); Lymphocyte % 11.1 % (19-41); Mean Corp Hgb Conc 31.1 g/dL (32-36); Mean Corpuscular Hgb 29.8 pg (27.0-32.0); Mean Corpuscular Volume 95.8 fL (80-94); Mean Platelet Vol. 10.9 fl (6.2-12.0); Monocyte# 1.08 X10^3/uL; Monocyte% 10.4 % (0-10); NRBC Flagged by Analyzer 0 % (0-5); Neutrophil # 7.71 X10^3/uL (2.7-7.7); Neutrophil % 74.4 % (47-70); Platelet Count 162 K/mm3 (150-450); RBC Distribution Width CV 15.7 % (11.6-14.6); RBC Distribution Width SD 55.9 fl (35.1-43.9); Red Blood Count 3.59 M/mm3 (4.6-6.2); White Blood Count 10.4 K/mm3 (4.4-11.0)
[2019-09-06] MEDS: Pramipexole Di-HCl 0.5 MG Tablet PO ×2 (06:41→12:57)
[2019-09-06 06:45] LABS: ALB/GLOB Ratio 0.7 RATIO (0.9-2.4); AST(SGOT) 25 U/L (15-37); Alanine Aminotransfer ALT/SGPT 15 U/L (16-61); Albumin, Serum 2.5 g/dL (3.2-5.0); Alkaline Phosphatase 60 U/L (45-117); Anion Gap 3 (5-15); BUN 23 mg/dL (7-18); BUN/Creat Ratio 24.2 RATIO (10-20); Calcium,Total 8.9 mg/dL (8.5-10.1); Chloride 106 mmol/L (98-107); Creatinine, Serum 0.95 mg/dL (0.70-1.30); EST Glomerular Filtration Rate 82 mL/min (>60); Est Glom Filt Rate - Afr Amer 99 mL/min (>60); Estimated Creatinine Clearance 71.51 ml/min; Globulin 3.8 g/dL (2.2-4.2); Glucose 99 mg/dL (74-106); Potassium 4.4 mmol/L (3.5-5.1); Protein, Total 6.3 g/dL (6.4-8.2); Sodium Level 141 mmol/L (136-145)
[2019-09-06 06:50] LABS: Bedside Glucose 103 mg/dL (70-110)
[2019-09-06] MEDS: Ipratropium/Albuterol Sulfate 3 ML AMPUL.NEB INHALATION (07:07)
[2019-09-06 07:16] VITALS: PULSE 74
[2019-09-06 07:25] VITALS: PULSE 87; RESP 19
[2019-09-06 08:36] VITALS: O2SAT 96
[2019-09-06 08:40] VITALS: BP 147/68; PULSE 82; RESP 18; TEMP 36.5; O2SAT 92
[2019-09-06] MEDS: Ferrous Sulfate 325 MG Tablet PO (08:46)
[2019-09-06] MEDS: Aspirin E.C. 81 MG Tablet PO (08:46)
[2019-09-06] MEDS: Losartan Potassium 50 MG Tablet PO (08:47)
[2019-09-06] MEDS: Furosemide 40 MG Tablet PO (08:48)
[2019-09-06] MEDS: Multivitamin (Healthy Eyes) Capsule 1 CAP PO (08:48)
--- NOTE | 2019-09-06 11:13 | CASEMGMT ---
This RN CM to room to discuss discharge plan with pt at this time. Pt states no concerns with going home at time of discharge. Pt states is normally on room air at home during the day and has been here. Pt states no need for OP/HHC at this time. Pt states has adequate equipment at home and states no further concerns/needs at this time. SStaten RN CM
[2019-09-06] MEDS: Docusate Sodium 100 MG Capsule PO (11:28)
[2019-09-06] MEDS: Fenofibrate 145 MG Tablet PO (11:28)
[2019-09-06] MEDS: Folic Acid 1 MG Tablet PO (11:28)
[2019-09-06 11:36] LABS: Bedside Glucose 123 mg/dL (70-110)
--- NOTE | 2019-09-06 12:10 | DCINST_ITS ---
- Discharge Diagnoses Current Active Problems: Current Active and Chronic Problems (Last Reviewed 09/03/19 @ 21:[address] Tony Foreman MD) Severe sepsis (Acute) Pneumonia (Acute) You will use the following diet at home:: Calorie/Carbohydrate Controlled (specify 1200, 1400, etc) - 1800 tj / day, Cardiac Your food should be the consistency of: Regular Your liquids should be the consistency of: Regular/Thin Discharge Activity: Return to Normal Activity, Use Walker Allergies/Adverse Reactions: Allergies No Known Allergies Allergy (Verified 08/05/19 14:00) Medications to take at Discharge Folic Acid 1 mg PO DAILY@1200 05/06/13 Duloxetine HCl 60 mg PO QHS 12/04/16 Pramipexole Di-HCl [Mirapex] 0.5 mg PO TID 12/04/16 aspirin 81 mg tablet,delayed release 81 mg PO DAILY 10/06/17 docusate sodium 100 mg capsule 100 mg PO BID cap 10/20/17 gabapentin 600 mg tablet 1,200 mg PO QHS tab 10/20/17 Potassium Chloride [Klor-Con 10] 10 meq PO DAILY@1200 10/02/18 fenofibrate nanocrystallized 145 mg tablet 145 mg PO LUNCH #90 tab 11/27/18 Ferrous Sulfate [Iron] 65 mg PO DAILY 02/01/19 cholecalciferol (vitamin D3) 125 mcg (5,000 unit) capsule 5,000 unit PO DAILY 03/30/19 Lactobacillus Acidophilus [Acidophilus] 1 cap PO DAILY 07/12/19 Metformin HCl [Metformin HCl ER] 500 mg PO DAILY PRN PRN 07/12/19 Tamsulosin HCl [Flomax] 0.4 mg PO QHS 07/12/19 furosemide 40 mg tablet 40 mg PO BID #180 tab 08/30/19 Acetaminophen [Tylenol Extra Strength] 500 mg PO DAILY PRN PRN 09/03/19 Digoxin 250 mcg PO DAILY 09/03/19 Losartan Potassium [Cozaar] 50 mg PO BID 09/03/19 Metoprolol Tartrate [Lopressor (beta zita)] 50 mg PO QHS 09/03/19 Omeprazole [Prilosec] 20 mg PO QHS 09/03/19 Pravastatin Sodium 40 mg PO QHS 09/03/19 Rivaroxaban [Xarelto] 10 mg PO DAILY 09/03/19 Vit A/Vit C/Vit E/Zinc/Copper [Preservision Areds Tablet] 1 ea PO BID 09/03/19 Cephalexin [Keflex] 500 mg PO TID #36 cap 09/06/19 The following prescriptions were given: Cephalexin [Keflex] 500 mg PO TID #36 cap Transmission Status: Pending to [facility] Primary Care Physician: Fany Hobson DO [Primary Care Provider] - Please follow up with your Primary Care Physician in: 1 week Test Results: Test results from this visit will be discussed in further detail at your follow- up appointment, if applicable. Please Follow Up With: Zander Graham MD When: 2 weeks Proposed Discharge Date: 09/06/19
--- NOTE | 2019-09-06 12:26 | PCM.DC.SUM ---
<Irving Beckham - Last Filed: 09/06/19 12:26> Discharge Date and Diagnosis - Problem List Patient Problems: Active and Suspected Problems (Last Reviewed 09/03/19 @ 21:[address] Tony Foreman MD) Severe sepsis (Acute) Pneumonia (Acute) Date of Admission: 09/03/19 Date of Discharge: 09/06/19 - Primary Discharge Diagnosis Active and Suspected Problems (Last Reviewed 09/03/19 @ 21:[address] Tony Foreman MD) Severe sepsis 2/2 E coli complicated UTI and pyelonephritis 2/2 incomplete bladder emptying HTN Chronic afib Chronic systolic CHF T2DM with morbid obesity HEBER Parkinsons - Secondary Discharge Diagnosis Chronic Problems (Last Reviewed 09/03/19 @ 21:[address] Tony Foreman MD) Status post insertion of iliac artery stent (Chronic ~08/04/12) Bilateral iliac artery stents 08/04/12 Iron deficiency anemia due to chronic blood loss (Chronic) Gastric AVMs, September 2017 Chronic atrial fibrillation (Chronic) History of cardioversion (Chronic 12/2016) Secondary pulmonary arterial hypertension (Chronic) Atherosclerosis of coronary artery of [place] heart without angina pectoris (Chronic) CABG x 2 HERRERA-LAD, SVG-OM 02/14/2006 [id number] anastomosis-LAD w/ Taxus 2.75 x 8 mm and POBA-PDA 12/23/2006 H/O coronary artery bypass surgery (Chronic 02/14/06) CABG x 2 HERRERA-LAD, SVG-OM 02/14/[address] Fei Castillo, [facility] GERD (gastroesophageal reflux disease) (Chronic) HEBER (obstructive sleep apnea) (Chronic) Benign essential hypertension (Chronic) Hospital Course and Treatment Imaging Results: RAD/Chest 1 View (Portable) IMPRESSION: 1. Evidence of prior cardiac surgery. The heart is borderline enlarged. 2. Mild interstitial changes in the lungs. Chronic versus acute. 3. Stable right jugular Port-A-Cath. 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 Graham, hx of lung cancer in remission, HEBER, parkinsons, DMt2 with morbid obesity, chronic systolic CHF who presented to the ER with c/o fever, dysuria, and foul smelling urine. He wqas found to have severe sepsis with elevated lactate, fever, leukocytosis, + UA, tachypnea. He was placed in the ICU and started on rocephin, IV fluids, and supportive care. CXR showed possible pna however he had no respiratory symptoms. He responded well to abx and was transferred out of the ICU to the PCU. Urine culture demonstrated E coli susceptible to cephalosporins. Leukocytosis resolved and he remained afebrile with resolution of his dysuria. He was transitioned to oral keflex, and should complete a 14 day total course of abx. He was discharged home in stable condition. He has ongoing debility but declined home health care stating he had all of the necessary equipment at home to take care of himself. He will need follow up with his urologist as he has ongoing issues with incomplete bladder emptying leading to the UTIs. He will also need follow up with his PCP in 1-2 weeks. This patient was seen by Irving Beckham PA-C under the supervision of Dr. Kaufman. [] Patient Problems: Active and Suspected Problems (Last Reviewed 09/03/19 @ 21:[address] Tony Foreman MD) Severe sepsis (Acute) Pneumonia (Acute) - Physical Exam Vitals/I&O's: Vital Signs Temp Pulse Resp BP Pulse Ox 97.7 F L 82 18 147/68 H 92 09/06/19 08:40 09/06/19 08:40 09/06/19 08:40 09/06/19 08:40 09/06/19 08:40 Oxygen Flow Rate (L/min) 3 Oxygen Delivery Method Room Air Weight: 293 lb 6.964 oz Body Mass Index (BMI) 41.6 Finger Stick Blood Glucose 121 Intake and Output for Last 24 Hours 09/04/19 09/05/19 09/06/19 23:59 23:59 23:59 Intake Total 1530.00 / 2010.00 1973.25 / 2523.25 1450 / 1450 Output Total 1799 / 2049 1425 / 2400 2500 / 2500 Balance -270.00 / -40.00 548.25 / 123.25 -1050 / -1050 General: Alert, Oriented x3, Cooperative HEENT: Atraumatic, PERRLA, EOMI, Normocephalic Neck: Supple, No JVD, Negative Carotid Bruits Lungs: Clear to auscultation, Normal air movement Cardiovascular: Regular rate, No murmurs Abdomen: Bowel Sounds Present, Soft, Non Tender, Obese Extremities: No edema, Capillary Refill Less than 3 Seconds Skin: No rashes, No breakdown Musculoskeletal: No Tenderness to Palpation of Joints or Extremities Neurological: Cranial nerves II-XII grossly intact Psych/Mental Status: Normal Affect, Appropriate, Alert and oriented to time, place, person, mood and affect Microbiology Past 72 Hours 09/03/19 18:35 Urine Catheter - Catheter Urine Culture - Final Presumptive E. coli 09/03/19 18:50 Mucosa - Nasopharyngeal Respiratory Panel (PCR) - Final 09/03/19 18:35 Urine Catheter - Catheter Streptococcus pneumoniae Antigen (M - Final 09/03/19 18:35 Urine Catheter - Catheter Legionella Antigen - Final 09/03/19 18:50 Mucosa - Nasopharyngeal Influenza Types A,B Direct FA (GENO) - Final Laboratory Results 09/05/19 14:00: Digoxin 1.47 09/05/19 16:14: POC Glucose 111 H 09/05/19 21:52: POC Glucose 118 H 09/06/19 05:48: WBC 10.4, RBC 3.59 L, Hgb 10.7 L, Hct 34.4 L, MCV 95.8 H, MCH 29.8, MCHC 31.1 L, RDW Std Deviation 55.9 H, RDW Coeff of Iram 15.7 H, Plt Count 162, MPV 10.9, Immature Gran % (Auto) 0.400, Neut % (Auto) 74.4 H, Lymph % (Auto) 11.1 L, Ralls % (Auto) 10.4 H, Eos % (Auto) 3.2, Baso % (Auto) 0.5, Absolute Neuts (auto) 7.7, Absolute Lymphs (auto) 1.15, Nucleated RBC % 0 09/06/19 05:48: Sodium 141, Potassium 4.4, Chloride 106, Carbon Dioxide 32.0, Anion Gap 3 L, BUN 23 H, Creatinine 0.95, Estim Creat Clear Calc 71.51, Est GFR (MDRD) Af Amer 99, Est GFR (MDRD) Non-Af 82, BUN/Creatinine Ratio 24.2 H, Glucose 99, Calcium 8.9, Total Bilirubin 0.90, AST 25, ALT 15 L, Alkaline Phosphatase 60, Total Protein 6.3 L, Albumin 2.5 L, Globulin 3.8, Albumin/Globulin Ratio 0.7 L 09/06/19 06:39: POC Glucose 103 09/06/19 11:26: POC Glucose 123 H Current Medications Acetaminophen (Tylenol) 650 mg PO Q6H PRN PRN PRN Reason: Pain Score 1-10/Temp > 100.7 F Last Admin: 09/04/19 17:54 Dose: 650 mg Documented by: Albuterol Sulfate (Ventolin Aerosols) 2.5 mg INHALATION Q2H PRN PRN PRN Reason: SOB &/OR WHEEZING Albuterol/Ipratropium (Duoneb) 3 ml INHALATION Q6HWA.RT [facility] Last Admin: 09/06/19 07:07 Dose: 3 ml Documented by: Aspirin (Ecotrin) 81 mg PO DAILYCM [facility] Last Admin: 09/06/19 08:46 Dose: 81 mg Documented by: Cholecalciferol (Vitamin D (25mcg)) 5,000 unit PO DAILY [facility] Last Admin: 09/06/19 08:48 Dose: 5,000 unit Documented by: Docusate Sodium (Colace) 100 mg PO BID@1200,2200 [facility] Last Admin: 09/06/19 11:28 Dose: 100 mg Documented by: Duloxetine HCl (Cymbalta) 60 mg PO QHS [facility] Last Admin: 09/05/19 21:38 Dose: 60 mg Documented by: Fenofibrate (Tricor) 145 mg PO LUNCH [facility] Last Admin: 09/06/19 11:28 Dose: 145 mg Documented by: Ferrous Sulfate (Ferrous Sulfate) 325 mg PO DAILYCM [facility] Last Admin: 09/06/19 08:46 Dose: 325 mg Documented by: Folic Acid (Folic Acid) 1 mg PO DAILY@1200 [facility] Last Admin: 09/06/19 11:28 Dose: 1 mg Documented by: Furosemide (Lasix) 40 mg PO BID [facility] Last Admin: 09/06/19 08:48 Dose: 40 mg Documented by: Gabapentin (Neurontin) 1,200 mg PO QHS [facility] Last Admin: 09/05/19 21:36 Dose: 1,200 mg Documented by: Glucagon () 1 mg IM .X1 PRN PRN Reason: Hypoglycemia Hydrocortisone Acetate (Anusol Hc) 25 mg RECTAL DAILY [facility] Last Admin: 09/06/19 09:53 Dose: Not Given Documented by: Ceftriaxone Sodium 2 gm/ (Sodium Chloride) 50 mls @ 100 mls/hr IV Q24@2200 [facility] Last Infusion: 09/05/19 22:42 Dose: Infused Documented by: Sodium Chloride () 250 mls @ 15 mls/hr IV .[id number] PRN PRN Reason: Saline Flush Last Infusion: 09/05/19 22:42 Dose: 0 mls/hr Documented by: Sodium Chloride () 250 mls @ 15 mls/hr IV .[id number] PRN PRN Reason: Additional IVPB Infusion Dextrose (Dextrose 10%-Water) 250 mls @ 999 mls/hr IV .Q16M PRN; Protocol PRN Reason: HYPOGLYCEMIA Insulin Human Lispro (Humalog Kelseyikpen (Bk)) 0 unit SC ACHS [facility]; Protocol Last Admin: 09/06/19 11:27 Dose: Not Given Documented by: Lactobacillus Acidophilus (Acidophilus) 1 tablet PO DAILY [facility] Last Admin: 09/06/19 08:47 Dose: 1 tablet Documented by: Losartan Potassium (Cozaar) 50 mg PO BID [facility] Last Admin: 09/06/19 08:47 Dose: 50 mg Documented by: Melatonin (Melatonin) 3 mg PO QHS PRN PRN PRN Reason: INSOMNIA Metoprolol Tartrate (Lopressor (Beta Taisha)) 50 mg PO QHS [facility] Last Admin: 09/05/19 21:36 Dose: 50 mg Documented by: Multivitamins/Minerals (Healthy Eyes (Bkc)) 1 capsule PO BID [facility] Last Admin: 09/06/19 08:48 Dose: 1 capsule Documented by: Nutritional Formula ([facility] - [place] Flavor) [facility] Last Admin: 09/06/19 08:47 Dose: 1 packet Documented by: Ondansetron HCl (Zofran) 4 mg IV Q8H PRN PRN PRN Reason: NAUSEA/VOMITING Pantoprazole Sodium (Protonix) 20 mg PO QHS [facility] Last Admin: 09/05/19 21:39 Dose: 20 mg Documented by: Pramipexole Dihydrochloride (Mirapex) 0.5 mg PO TID [facility] Last Admin: 09/06/19 06:41 Dose: 0.5 mg Documented by: Pravastatin Sodium (Pravachol) 40 mg PO QHS [facility] Last Admin: 09/05/19 21:38 Dose: 40 mg Documented by: Rivaroxaban (Xarelto) 10 mg PO DAILY@1700 [facility] Last Admin: 09/05/19 16:20 Dose: 10 mg Documented by: Sodium Chloride () 10 - 40 ml IV UD PRN PRN Reason: SALINE FLUSH Last Admin: 09/05/19 21:49 Dose: 10 ml Documented by: Tamsulosin HCl (Flomax) 0.4 mg PO QHS [facility] Last Admin: 09/05/19 21:38 Dose: 0.4 mg Documented by: Discharge Diet: Low fat/ Low Cholesterol, 1800 Calorie Control Diet, 2000 mg Sodium Diet Discharge Activity: Return to Normal Activity, Use Walker Home Medications: Medications to take at Discharge Folic Acid 1 mg PO DAILY@1200 05/06/13 Duloxetine HCl 60 mg PO QHS 12/04/16 Pramipexole Di-HCl [Mirapex] 0.5 mg PO TID 12/04/16 aspirin 81 mg tablet,delayed release 81 mg PO DAILY 10/06/17 docusate sodium 100 mg capsule 100 mg PO BID cap 10/20/17 gabapentin 600 mg tablet 1,200 mg PO QHS tab 10/20/17 Potassium Chloride [Klor-Con 10] 10 meq PO DAILY@1200 10/02/18 fenofibrate nanocrystallized 145 mg tablet 145 mg PO LUNCH #90 tab 11/27/18 Ferrous Sulfate [Iron] 65 mg PO DAILY 02/01/19 cholecalciferol (vitamin D3) 125 mcg (5,000 unit) capsule 5,000 unit PO DAILY 03/30/19 Lactobacillus Acidophilus [Acidophilus] 1 cap PO DAILY 07/12/19 Metformin HCl [Metformin HCl ER] 500 mg PO DAILY PRN PRN 07/12/19 Tamsulosin HCl [Flomax] 0.4 mg PO QHS 07/12/19 furosemide 40 mg tablet 40 mg PO BID #180 tab 08/30/19 Acetaminophen [Tylenol Extra Strength] 500 mg PO DAILY PRN PRN 09/03/19 Digoxin 250 mcg PO DAILY 09/03/19 Losartan Potassium [Cozaar] 50 mg PO BID 09/03/19 Metoprolol Tartrate [Lopressor (beta taisha)] 50 mg PO QHS 09/03/19 Omeprazole [Prilosec] 20 mg PO QHS 09/03/19 Pravastatin Sodium 40 mg PO QHS 09/03/19 Rivaroxaban [Xarelto] 10 mg PO DAILY 09/03/19 Vit A/Vit C/Vit E/Zinc/Copper [Preservision Areds Tablet] 1 ea PO BID 09/03/19 Cephalexin [Keflex] 500 mg PO TID #36 cap 09/06/19 Following Prescrptions Were Given to Patient: Cephalexin [Keflex] 500 mg PO TID #36 cap Transmission Status: Received by [facility] Primary Care Physician: Fany Hobson DO [Primary Care Provider] - Please follow up with your Primary Care Physician in: 1 week Please Follow Up With: Zander Graham MD When: 2 weeks Please Follow Up With: Fany Hobson DO Disposition: Home Minutes spent on discharge:: 35 Patient Condition:: Stable Medical Necessity - Tobacco Use Smoking Status: Former smoker Meaningful Use Info Meaningful Use Diagnoses (Choose all that apply): None applicable <Ezio Kaufman - Last Filed: 09/06/19 13:44> Discharge Date and Diagnosis - Primary Discharge Diagnosis Active and Suspected Problems (Last Reviewed 09/03/19 @ 21:[address] Tony Foreman MD) Severe sepsis (Acute) Pneumonia (Acute) - Secondary Discharge Diagnosis Chronic Problems (Last Reviewed 09/03/19 @ 21:[address] Tony Foreman MD) Status post insertion of iliac artery stent (Chronic ~08/04/12) Bilateral iliac artery stents 08/04/12 Iron deficiency anemia due to chronic blood loss (Chronic) Gastric AVMs, September 2017 Chronic atrial fibrillation (Chronic) History of cardioversion (Chronic 12/2016) Secondary pulmonary arterial hypertension (Chronic) Atherosclerosis of coronary artery of [place] heart without angina pectoris (Chronic) CABG x 2 HERRERA-LAD, SVG-OM 02/14/2006 [id number] anastomosis-LAD w/ Taxus 2.75 x 8 mm and POBA-PDA 12/23/2006 H/O coronary artery bypass surgery (Chronic 02/14/06) CABG x 2 HERRERA-LAD, SVG-OM 02/14/[address] 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 I have independently interviewed and examined the patient and reviewed pertinent historical, laboratory, and other data. Please refer to Irving Beckham PA-C note for details of this patient's presentation, findings, and recommendations. I have reviewed Irving Beckham PA-C note and concur with documented findings. In brief, patient is a 73-year-old gentleman who who was admitted with acute cystitis. Urine cultures grew E. coli. Hospital course: As documented above by Irving Beckham PA-C - Physical Exam Vitals/I&O's: Vital Signs Temp Pulse Resp BP Pulse Ox 97.7 F L 82 18 147/68 H 92 09/06/19 08:40 09/06/19 08:40 09/06/19 08:40 09/06/19 08:40 09/06/19 08:40 Oxygen Flow Rate (L/min) 3 Oxygen Delivery Method Room Air Weight: 133.1 kg Body Mass Index (BMI) 41.6 Finger Stick Blood Glucose 121 Intake and Output for Last 24 Hours 09/04/19 09/05/19 09/06/19 23:59 23:59 23:59 Intake Total 1530.00 / 2010.00 1973.25 / 2523.25 1450 / 1450 Output Total 1800 / 0 1425 / 2400 2500 / 2500 Balance -270.00 / -40.00 548.25 / 123.25 -1050 / -1050 Microbiology Past 72 Hours 09/03/19 18:35 Urine Catheter - Catheter Urine Culture - Final Presumptive E. coli 09/03/19 18:50 Mucosa - Nasopharyngeal Respiratory Panel (PCR) - Final 09/03/19 18:35 Urine Catheter - Catheter Streptococcus pneumoniae Antigen (M - Final 09/03/19 18:35 Urine Catheter - Catheter Legionella Antigen - Final 09/03/19 18:50 Mucosa - Nasopharyngeal Influenza Types A,B Direct FA (GENO) - Final Laboratory Results 09/05/19 14:00: Digoxin 1.47 09/05/19 16:14: POC Glucose 111 H 09/05/19 21:52: POC Glucose 118 H 09/06/19 05:48: WBC 10.4, RBC 3.59 L, Hgb 10.7 L, Hct 34.4 L, MCV 95.8 H, MCH 29.8, MCHC 31.1 L, RDW Std Deviation 55.9 H, RDW Coeff of Iram 15.7 H, Plt Count 162, MPV 10.9, Immature Gran % (Auto) 0.400, Neut % (Auto) 74.4 H, Lymph % (Auto) 11.1 L, Ralls % (Auto) 10.4 H, Eos % (Auto) 3.2, Baso % (Auto) 0.5, Absolute Neuts (auto) 7.7, Absolute Lymphs (auto) 1.15, Nucleated RBC % 0 09/06/19 05:48: Sodium 141, Potassium 4.4, Chloride 106, Carbon Dioxide 32.0, Anion Gap 3 L, BUN 23 H, Creatinine 0.95, Estim Creat Clear Calc 71.51, Est GFR (MDRD) Af Amer 99, Est GFR (MDRD) Non-Af 82, BUN/Creatinine Ratio 24.2 H, Glucose 99, Calcium 8.9, Total Bilirubin 0.90, AST 25, ALT 15 L, Alkaline Phosphatase 60, Total Protein 6.3 L, Albumin 2.5 L, Globulin 3.8, Albumin/Globulin Ratio 0.7 L 09/06/19 06:39: POC Glucose 103 09/06/19 11:26: POC Glucose 123 H Current Medications Acetaminophen (Tylenol) 650 mg PO Q6H PRN PRN PRN Reason: Pain Score 1-10/Temp > 100.7 F Last Admin: 09/04/19 17:54 Dose: 650 mg Documented by: Albuterol Sulfate (Ventolin Aerosols) 2.5 mg INHALATION Q2H PRN PRN PRN Reason: SOB &/OR WHEEZING Albuterol/Ipratropium (Duoneb) 3 ml INHALATION Q6HWA.RT [facility] Last Admin: 09/06/19 07:07 Dose: 3 ml Documented by: Aspirin (Ecotrin) 81 mg PO DAILYCM [facility] Last Admin: 09/06/19 08:46 Dose: 81 mg Documented by: Cholecalciferol (Vitamin D (25mcg)) 5,000 unit PO DAILY [facility] Last Admin: 09/06/19 08:48 Dose: 5,000 unit Documented by: Docusate Sodium (Colace) 100 mg PO BID@1200,2200 [facility] Last Admin: 09/06/19 11:28 Dose: 100 mg Documented by: Duloxetine HCl (Cymbalta) 60 mg PO QHS [facility] Last Admin: 09/05/19 21:38 Dose: 60 mg Documented by: Fenofibrate (Tricor) 145 mg PO LUNCH [facility] Last Admin: 09/06/19 11:28 Dose: 145 mg Documented by: Ferrous Sulfate (Ferrous Sulfate) 325 mg PO DAILYCM [facility] Last Admin: 09/06/19 08:46 Dose: 325 mg Documented by: Folic Acid (Folic Acid) 1 mg PO DAILY@1200 [facility] Last Admin: 09/06/19 11:28 Dose: 1 mg Documented by: Furosemide (Lasix) 40 mg PO BID [facility] Last Admin: 09/06/19 08:48 Dose: 40 mg Documented by: Gabapentin (Neurontin) 1,200 mg PO QHS [facility] Last Admin: 09/05/19 21:36 Dose: 1,200 mg Documented by: Glucagon () 1 mg IM .X1 PRN PRN Reason: Hypoglycemia Hydrocortisone Acetate (Anusol Hc) 25 mg RECTAL DAILY [facility] Last Admin: 09/06/19 09:53 Dose: Not Given Documented by: Ceftriaxone Sodium 2 gm/ (Sodium Chloride) 50 mls @ 100 mls/hr IV Q24@2200 [facility] Last Infusion: 09/05/19 22:42 Dose: Infused Documented by: Sodium Chloride () 250 mls @ 15 mls/hr IV .[id number] PRN PRN Reason: Saline Flush Last Infusion: 09/05/19 22:42 Dose: 0 mls/hr Documented by: Sodium Chloride () 250 mls @ 15 mls/hr IV .[id number] PRN PRN Reason: Additional IVPB Infusion Dextrose (Dextrose 10%-Water) 250 mls @ 999 mls/hr IV .Q16M PRN; Protocol PRN Reason: HYPOGLYCEMIA Insulin Human Lispro (Humalog Kwikpen ([facility])) 0 unit SC ACHS [facility]; Protocol Last Admin: 09/06/19 11:27 Dose: Not Given Documented by: Lactobacillus Acidophilus (Acidophilus) 1 tablet PO DAILY [facility] Last Admin: 09/06/19 08:47 Dose: 1 tablet Documented by: Losartan Potassium (Cozaar) 50 mg PO BID [facility] Last Admin: 09/06/19 08:47 Dose: 50 mg Documented by: Melatonin (Melatonin) 3 mg PO QHS PRN PRN PRN Reason: INSOMNIA Metoprolol Tartrate (Lopressor (Beta Taisha)) 50 mg PO QHS [facility] Last Admin: 09/05/19 21:36 Dose: 50 mg Documented by: Multivitamins/Minerals (Healthy Eyes ([facility])) 1 capsule PO BID [facility] Last Admin: 09/06/19 08:48 Dose: 1 capsule Documented by: Nutritional Formula (Marcus - [place] Flavor) [facility] Last Admin: 09/06/19 08:47 Dose: 1 packet Documented by: Ondansetron HCl (Zofran) 4 mg IV Q8H PRN PRN PRN Reason: NAUSEA/VOMITING Pantoprazole Sodium (Protonix) 20 mg PO QHS [facility] Last Admin: 09/05/19 21:39 Dose: 20 mg Documented by: Pramipexole Dihydrochloride (Mirapex) 0.5 mg PO TID [facility] Last Admin: 09/06/19 12:57 Dose: 0.5 mg Documented by: Pravastatin Sodium (Pravachol) 40 mg PO QHS [facility] Last Admin: 09/05/19 21:38 Dose: 40 mg Documented by: Rivaroxaban (Xarelto) 10 mg PO DAILY@1700 [facility] Last Admin: 09/05/19 16:20 Dose: 10 mg Documented by: Sodium Chloride () 10 - 40 ml IV UD PRN PRN Reason: SALINE FLUSH Last Admin: 09/05/19 21:49 Dose: 10 ml Documented by: Tamsulosin HCl (Flomax) 0.4 mg PO QHS [facility] Last Admin: 09/05/19 21:38 Dose: 0.4 mg Documented by: Inpatient E&M: [id number] [facility]
--- NOTE | 2019-09-06 12:44 | PHA.DC.MC ---
Pharmacy Service has performed discharge medication reconciliation and counseling for this patient. 1. CEPHALEXIN 500MG PO TID X 12 DAYS The patient's discharge medication list was reviewed for discrepancies and discrepancies were resolved. Home Medications Folic Acid 1 mg PO DAILY@1200 05/06/13 Duloxetine HCl 60 mg PO QHS 12/04/16 Pramipexole Di-HCl [Mirapex] 0.5 mg PO TID 12/04/16 aspirin 81 mg tablet,delayed release 81 mg PO DAILY 10/06/17 docusate sodium 100 mg capsule 100 mg PO BID cap 10/20/17 gabapentin 600 mg tablet 1,200 mg PO QHS tab 10/20/17 Potassium Chloride [Klor-Con 10] 10 meq PO DAILY@1200 10/02/18 fenofibrate nanocrystallized 145 mg tablet 145 mg PO LUNCH #90 tab 11/27/18 Ferrous Sulfate [Iron] 65 mg PO DAILY 02/01/19 cholecalciferol (vitamin D3) 125 mcg (5,000 unit) capsule 5,000 unit PO DAILY 03/30/19 Lactobacillus Acidophilus [Acidophilus] 1 cap PO DAILY 07/12/19 Metformin HCl [Metformin HCl ER] 500 mg PO DAILY PRN PRN 07/12/19 Tamsulosin HCl [Flomax] 0.4 mg PO QHS 07/12/19 furosemide 40 mg tablet 40 mg PO BID #180 tab 08/30/19 Acetaminophen [Tylenol Extra Strength] 500 mg PO DAILY PRN PRN 09/03/19 Digoxin 250 mcg PO DAILY 09/03/19 Losartan Potassium [Cozaar] 50 mg PO BID 09/03/19 Metoprolol Tartrate [Lopressor (beta zita)] 50 mg PO QHS 09/03/19 Omeprazole [Prilosec] 20 mg PO QHS 09/03/19 Pravastatin Sodium 40 mg PO QHS 09/03/19 Rivaroxaban [Xarelto] 10 mg PO DAILY 09/03/19 Vit A/Vit C/Vit E/Zinc/Copper [Preservision Areds Tablet] 1 ea PO BID 09/03/19 Cephalexin [Keflex] 500 mg PO TID #36 cap 09/06/19 The patient was counseled on the following discharge medications and changes in medications for homegoing were reviewed. The Reason for Use, instructions for use, and potential side effects were reviewed for all new medications. The patient's questions regarding all of their medications were answered. The patient was able to verbally demonstrate an understanding of their discharge medications.
--- NOTE | 2019-09-06 13:12 | NURSING ---
Was consulted to see patient for wound to left great toe. pt is being discharged home at this time.
--- NOTE | 2019-09-07 15:36 | CASEMGMT ---
[place] [facility] Discharge F/U Phone Call LACKristine: 13 Strata: 3 Discharge date: 09/06/2019 Call date: 09/07/2019 Call time: [id number] Duration: 9 minutes Admission dx: Severe Sepsis Pt's answered phone and states pt is in the shower at this time. states that pt is 'doing pretty good.' states no questions regarding d/c instructions/medications at this time. states they are awaiting a call back from Dr. Hobson for time to f/u via phone. states her only concern with [facility] is that when she called in to check on pt, nobody told her that he had pneumonia. voices no further questions/concerns/needs at this time. states she checks pt's BP and pulse ox routinely. [place]en [place]
== END 2019-09-06 13:17 | disposition home or self-care (01) | DRG 872 ==
LOC: ED 19:12 → ICU 20:23 → PCU 09-05 14:23
PROVIDERS: Internal Medicine; Admitting Provider Hospitalist; Emergency Provider Emergency Medicine; PCP Internal Medicine; Visit Provider Internal Medicine
DX: A41.9 Sepsis, unspecified organism (principal); I48.20 Chronic atrial fibrillation, unspecified; I50.22 Chronic systolic (congestive) heart failure; N39.0 Urinary tract infection, site not specified; N12 Tubulo-interstitial nephritis, not specified as acute or chronic; Z68.41 Body mass index [BMI] 40.0-44.9, adult; R65.20 Severe sepsis without septic shock; G20 Parkinson's disease; I25.10 Atherosclerotic heart disease of native coronary artery without angina pectoris; I11.0 Hypertensive heart disease with heart failure; G47.33 Obstructive sleep apnea (adult) (pediatric); E66.01 Morbid (severe) obesity due to excess calories; K21.9 Gastro-esophageal reflux disease without esophagitis; E87.6 Hypokalemia; B96.20 Unspecified Escherichia coli [E. coli] as the cause of diseases classified elsewhere; E11.9 Type 2 diabetes mellitus without complications; Z87.891 Personal history of nicotine dependence; Z85.118 Personal history of other malignant neoplasm of bronchus and lung; Z95.1 Presence of aortocoronary bypass graft; Z92.21 Personal history of antineoplastic chemotherapy; Z79.84 Long term (current) use of oral hypoglycemic drugs; R33.9 Retention of urine, unspecified
CPT/HCPCS: 36415; 71045; 80048; 80053; 80162; 81001; 82962; 83605; 85025; 87040; 87086; 87088; 87186; 87449; 87633; 87804; 94640; 97110; 97116; 97162; 97165; 97530; 97535; 97802; 99251; 99285; J7030; J7040; J7050; A4216; G0463; J0696

== ENCOUNTER → 2019-11-10 13:14 | Outpatient (CLI) | payer MEDICARE, OTHER, SELFPAY ==
[2019-05-05 14:06] VITALS: BMI 44.5
[2019-09-03 21:28] VITALS: BMI 41.6
--- NOTE | 2019-11-10 13:16 | CT_ITS ---
STUDY: CT CHEST WITH CONTRAST REASON FOR EXAM: Male, 74 years old. F/U LUNG CA-HAD CHEMO AND SURGERY, HX-COPD, HTN, CABG, CORONARY STENTS RADIATION DOSAGE (If Supplied By Facility): CTDIvol = ( 26.66 ) mGy, DLP = ( 1791.75 ) mGycm TECHNIQUE: Transaxial imaging was performed following intravenous administration of IV 100mL Isovue-300. Multiplanar coronal and sagittal images were reformatted. Individualized dose optimization techniques were used for this CT. COMPARISON: Comparison is made with prior examination dated January 19, 2019. FINDINGS: A right-sided portacatheter is seen with the tip in the superior vena cava. Diffuse emphysematous changes. There is no demonstrated pleural abnormality. There are calcifications of the coronary arteries. Sternal cerclage wires and vascular clips are present from a prior sternotomy and coronary artery bypass graft procedure (CABG). There are multiple small lymph nodes within the mediastinum, which are normal in size and morphology most compatible with reactive lymph hyperplasia. Normal hilar regions. Normal enhanced pulmonary arteries. There is atherosclerotic calcification of the aortic arch with tortuosity and elongation of the aortic arch and descending thoracic aorta. There are multi-level degenerative changes of the thoracic spine. Stable heterogeneous right adrenal mass. CT/Chest WITH Contrast IMPRESSION: Stable examination. Electronically Signed: Navdeep Pacheco, at 15:32 EDT , Service support ,
--- NOTE | 2019-11-10 13:16 | CT_ITS ---
STUDY: CT ABDOMEN WITH CONTRAST REASON FOR EXAM: Male, 74 years old. F/U LUNG CA-HAD CHEMO AND SURGERY, HX-COPD, HTN, CABG, CORONARY STENTS RADIATION DOSAGE (If Supplied By Facility): CTDIvol = ( 26.66 ) mGy, DLP = ( 1791.75 ) mGycm TECHNIQUE: Transaxial images were obtained post I.V. administration of IV 100mL Isovue-300, and without oral contrast. Sagittal and coronal images were reconstructed. Individualized dose optimization techniques were used for this CT. COMPARISON: Comparison is made with prior examination of February 25, 2019. FINDINGS: The visualized lung bases are unremarkable. Coronary artery calcifications. Normal liver. Normal gallbladder and extrahepatic biliary system. Normal spleen. Normal pancreas. Stable 5.2 cm x 3.8 cm x 4.1 cm heterogeneous mass arising from the right adrenal gland. This contains focal calcification as well as fatty components suggestive of a possible adrenal myelo lipoma. This is unchanged. There is evidence of cortical thinning of both renal cortices more prominent on the right side. Tiny nonobstructive calculus in the lower pole calyx of the left kidney. Normal visualized stomach. Normal small intestine. Normal colon. The appendix is visualized and appears normal. There is diffuse atherosclerotic calcification of the abdominal aorta and the major visceral branches., without a demonstrated aneurysm. Normal inferior vena cava. Normal retroperitoneum. Normal abdominal wall. There are mild degenerative changes of the visualized lumbar spine. CT/Abdomen WITH IV Contrast IMPRESSION: Stable 5.2 cm x 3.8 cm x 4.1 cm heterogeneous mass arising from the right adrenal gland. 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 Electronically Signed: Navdeep Pacheco, at 15:27 EDT , Service support ,
[2019-11-10 13:30] LABS: CREATININE FINGERSTICK 0.8 mg/dL (0.70-1.30)
[2019-11-10] MEDS: 0.9% Saline Lock 10 ML Syringe IV (13:45)
== END ==
PROVIDERS: PCP Internal Medicine; Referring Provider Internal Medicine Hematology & Oncology; Visit Provider Internal Medicine Hematology & Oncology
DX: C34.12 Malignant neoplasm of upper lobe, left bronchus or lung (principal); D50.0 Iron deficiency anemia secondary to blood loss (chronic)
CPT/HCPCS: 36591; 71260; 74160; 80053; 82607; 82728; 82746; 83540; 83550; 85025; Q9967; A4216

== ENCOUNTER 2019-12-02 12:37 | Inpatient (IN) | payer MEDICARE, OTHER, SELFPAY ==
[2019-11-17 14:15] VITALS: BMI 38.7
[2019-12-02] VITALS (20 sets, daily range): BP systolic 141–194; BP diastolic 40–115; PULSE 73–89; RESP 15–35; TEMP 38.2–39.6; O2SAT 89–100; BMI 40.8; BMI 39.4
--- NOTE | 2019-12-02 12:56 | EKG12_ITS ---
Test Reason : CONUSION Blood Pressure : / mmHG Vent. Rate : 085 BPM Atrial Rate : 082 BPM P-R Int : 000 ms QRS Dur : 100 ms QT Int : 306 ms P-R-T Axes : 000 -61 072 degrees QTc Int : 364 ms Atrial fibrillation Left axis deviation Nonspecific ST abnormality Abnormal ECG Confirmed by SUNIL CLEARY, TATI ([id number]), industrial editor DAVID FLOWER ([id number]) on 12/07/2019 10:53:40 AM Referred By: VERONICA Confirmed By:TATI BARBER MD
--- NOTE | 2019-12-02 13:20 | ED.DCSUM_ITS ---
History of Present Illness Chief Complaint: Fever Narrative: 74-year-old male with a history of frequent urinary tract infections and previous sepsis from UTI presents with essentially 24 hours of gradual onset weakness and fatigue. He did not tell his about yesterday but she noticed that he was somewhat confused this morning. She took his temperature and it was 104.5. He has a slight cough, shortness of breath, and feels very weak. He also has UTI symptoms. He has a chronic left toe wound but it is not worse than baseline. no abdominal pain. Capacity - Capacity Assessment Tool Can the patient make a choice & communicate that choice?: Yes Past Medical History - Allergies and Home Meds Allergies/Adverse Reactions: Allergies No Known Allergies Allergy (Verified 12/02/19 12:46) Primary Care Physician: Fany Hobson DO [Primary Care Provider] - Surgical History: coronary bypass surgery Smoking Status: Former smoker - Family History Maternal Family History: Family History (Last Reviewed 11/17/19 @ 14:57 by Dagmar Strickland) Sister Alcoholism Cancer Mother Arthritis Father Arthritis Brother Cancer Family History: Reports: No pertinent history Paternal Family History: Family History (Last Reviewed 11/17/19 @ 14:57 by Dagmar Strickland) Sister Alcoholism Cancer Mother Arthritis Father Arthritis Brother Cancer Family History: Reports: No pertinent history Review of Systems General: Reports: Fever, Malaise. Denies: Chills, Sweats Eyes: Denies: Visual changes - bilaterally, Diplopia ENT: Denies: Rhinorrhea, Sore throat Cardiovascular: Denies: Chest pain, Palpitations Respiratory: Denies: Dyspnea, Cough, Dyspnea on exertion Gastrointestinal: Reports: Nausea. Denies: Abdominal pain, Vomiting, Diarrhea, Melena, Hematochezia Genitourinary: Denies: Dysuria, Hematuria, Frequency Musculoskeletal: Reports: Myalgias. Denies: Back pain, Extremity Pain Skin: Denies: Rash, Wounds Neurological: Reports: Weakness. Denies: Headache, Numbness Physical Exam Vital Signs/Narrative: Vital Signs Temp Pulse Resp BP Pulse Ox 12/02/19 13:05 87 35 H 179/59 H 93 12/02/19 12:38 103.3 F H 88 30 H 184/68 H 91 General: Well nourished, Acute Distress Head: Normocephalic, Atraumatic Eyes: Perrl, EOMI ENT: No rhinorrhea, Dry mucous membranes Neck: Supple, Nontender Cardiovascular: Regular rhythm, No murmurs, Tachycardia Respiratory: No distress, Chest nontender, Decreased Air Movement Abdomen: Soft, Nontender, Nondistended, Normal bowel sounds Back: Nontender, Normal Inspection Extremities: Nontender, Edema Skin: Normal color, No rash Neurological: Alert, Cranial nerves II-XII grossly intact, Normal Strength, Normal Sensation, Confused Psychological: Normal affect, Normal Mood Diagnostic/Tx/Re-eval - Medical Decision Making White blood cell count is 17,900. Lactic acid is normal. His urine does appear likely infected. Likely this is the source. I sent it for a culture. I performed a skin examination and he does have a left toe wound that is chronic but there is no evidence of secondary cellulitis and I do not believe this could be causing his fever. He also had a small amount of irritation in the inguinal area on the right near his scrotum which his believes is from his diaper irritating him but there is no evidence of necrotizing fasciitis and I do not see anything concerning in the perirectal region or perineal region. I also sent blood cultures and administered IV fluids. He was then covered with broad-spectrum antibiotics. Fever was addressed with Tylenol here in the repeat is 100.7. He is still somewhat altered. Chest x-ray is still pending but he was covered with vancomycin and Zosyn. He appears to require intensive care at this time. I spoke with Dr. Echeverria and he will be admitted to the ICU. - Critical Care Time Critical care time (excluding procedures): 30-74 minutes, Discussing w/Patient &/or Family/Community Relations Specialist, Discussing w/Consultants, Arranging Admission or Transfer, Performing Direct Patient Care at Bedside ED Disposition - Plan for ED Patient: Disposition: Acute Care Hospital [facility] Diagnosis: Sepsis, Complicated urinary tract infection Referrals: Fany Hobson DO [Primary Care Provider] -
[2019-12-02 13:32] LABS: Absolute Lymphocyte Count 0.45 X10^3/uL (0.83-4.51); Absolute Neutrophil Count 15.9 X10^3/uL (2.0-7.7); Basophil# 0.05 X10^3/uL; Basophil% 0.3 % (0-1); Eosinophil# 0.08 X10^3/uL; Eosinophils% 0.4 % (0-5); Hemoglobin 12.7 g/dL (13.0-16.5); Lymphocyte # 0.45 X10^3/ul (4.0); Lymphocyte % 2.5 % (19-41); Mean Corp Hgb Conc 31.8 g/dL (32-36); Mean Corpuscular Hgb 30.8 pg (27.0-32.0); Mean Corpuscular Volume 96.9 fL (80-94); Monocyte# 1.25 X10^3/uL; NRBC Flagged by Analyzer 0 % (0-5); Neutrophil # 15.92 X10^3/uL (2.7-7.7); Neutrophil % 89.1 % (47-70); POSITIVE DIFFERENTIAL YES; Platelet Count 252 K/mm3 (150-450); RBC Distribution Width CV 16.5 % (11.6-14.6); RBC Distribution Width SD 58.9 fl (35.1-43.9); Red Blood Count 4.13 M/mm3 (4.6-6.2); White Blood Count 17.9 K/mm3 (4.4-11.0)
[2019-12-02 13:34] LABS: Differential Indicated SCAN CRITERIA MET
[2019-12-02 13:44] LABS: International Normalized Ratio 1.5; Prothrombin Time (Protime)PT. 17.2 SECONDS (11.7-14.9)
[2019-12-02 13:44] LABS: Mucous, Urine 0 SEEN /hpf (<or=2+); Red Blood Cells-Urine 0 SEEN /hpf (0-5)
[2019-12-02 13:45] LABS: Partial Thromboplast Time 43.1 Seconds (24.1-36.2)
[2019-12-02 13:50] LABS: ALB/GLOB Ratio 0.8 RATIO (0.9-2.4); AST(SGOT) 22 U/L (15-37); Alanine Aminotransfer ALT/SGPT 14 U/L (16-61); Albumin, Serum 3.2 g/dL (3.2-5.0); Alkaline Phosphatase 72 U/L (45-117); Anion Gap 6 (5-15); BUN 15 mg/dL (7-18); Calcium,Total 9.1 mg/dL (8.5-10.1); Chloride 99 mmol/L (98-107); Creatinine, Serum 1.36 mg/dL (0.70-1.30); EST Glomerular Filtration Rate 54 mL/min (>60); Est Glom Filt Rate - Afr Amer 66 mL/min (>60); Glucose 136 mg/dL (74-106); Potassium 3.9 mmol/L (3.5-5.1); Protein, Total 7.2 g/dL (6.4-8.2); Sodium Level 136 mmol/L (136-145)
--- NOTE | 2019-12-02 13:52 | RAD_ITS ---
STUDY: X-RAY CHEST REASON FOR EXAM: Male, 74 years old. FEVER;FREQUENT URINATIONS ;CONFUSION TECHNIQUE: Single AP portable view of the chest. COMPARISON: 09/03/2019. FINDINGS: Right implanted catheter terminates in the mid SVC, stable. There is evidence for COPD with mild interstitial prominence, stable. No definite infiltrates or effusions. Stable scarring in the left apex and both lung bases. There is mild cardiac enlargement. There has been previous CABG. Normal mediastinum and yovanny. Normal visualized pulmonary arteries. Normal visualized aortic arch and descending thoracic aorta. Normal visualized thoracic spine. Normal visualized ribs, clavicles, and shoulders. There is no demonstrated abnormality of the visualized soft tissue structures of the upper abdomen. RAD/Chest 1 View (Portable) IMPRESSION: No change. COPD with fibrosis. Electronically Signed: Marino Danielson MD at 15:15 EDT , Service support ,
[2019-12-02 13:53] LABS: Color, Urine Straw (Yellow); Glucose, Dipstick Normal (Normal); Ketone-Dipstick Negative (Negative); Leukocyte Esterase-Dipstick 500 /ul (Negative); Nitrite-Dipstick Negative (Negative); Occult Blood-Urine 25 /ul (Negative); Protein-Dipstick 100 mg/dl (Negative); Specific Gravity, Urine 1.015 (1.002-1.030); Urine Bilirubin Dipstick Negative (Negative); Urine Clarity Sl. Cloudy (Clear); Urine Urobilinogen 1 mg/dl (Normal); Urine pH 6.5 (5.0 - 8.0)
[2019-12-02 13:56] LABS: Lactic Acid 1.8 mmol/L (0.4-1.9)
[2019-12-02 14:02] LABS: Bacteria 3+ /hpf (None Seen)
[2019-12-02 14:03] LABS: Squamous Epithelial Cells - UA 0-5 SEEN /hpf (0-5); White Blood Cells 10-25 SEEN /hpf (0-5)
--- NOTE | 2019-12-02 14:03 | PCM.HP.STD ---
History of Present Illness Date of Admission: 12/02/19 Chief Complaint: Weakness and fatigue The patient is a 74 year old M with a PMH of Sepsis 2/2 UTI and frequent UTI's who presented to the ED today with about 24 hrs of symptoms that include gradually worsening weakness, fatigue, SOB and slight cough. His noted this am that he was somewhat confused and she was not aware that he was not feeling well prior. She checked his temperature at that time with a forehead thermometer and his temp was 104.5. He has a temp of 101.6 in the ED and is hypertensive. He has tachypnea with a RR in the upper 20's-30's and is hypertensive with SBP >170. He wears 2 L of O2 at baseline and is currently on 3 L nasal cannula. He does use CPAP at HS and thinks his pressure is 16 or 17. He has a white count of 17.9 with a sig L shift, DELVIS with sCr 1.36 and a baseline around 1, mild troponin elevation @ 0.074 and his UA is c/w UTI. COVID-19 testing was done and is pending upon admission. Blood and Urine cultures were sent. He was last admitted in August with a Sepsis 2/2 UTI and his cx grew out E. coli that was resistant to Bactrim, Quinolones and ampicillin and he was discharged on Keflex to complete his abx course. He has a hx of bladder emptying dysfunction previously treated by Dr. Graham and recently had surgery (06/2019) to help with emptying. Retention seems to be 2/2 BPH per his history. In the ED he was given Vanc and Zosyn. Past Medical History Past Medical History (Chronic Problems): Chronic Problems (Last Reviewed 11/17/19 @ 14:11 by Dagmar Strickland) Status post insertion of iliac artery stent (Chronic ~08/04/12) Bilateral iliac artery stents 08/04/12 Iron deficiency anemia due to chronic blood loss (Chronic) Gastric AVMs, September 2017 Chronic atrial fibrillation (Chronic) History of cardioversion (Chronic 12/2016) Secondary pulmonary arterial hypertension (Chronic) Atherosclerosis of coronary artery of [place] heart without angina pectoris (Chronic) CABG x 2 HERRERA-LAD, SVG-OM 02/14/2006 MYJ-INT-LKOJ anastomosis-LAD w/ Taxus 2.75 x 8 mm and POBA-PDA 12/23/2006 H/O coronary artery bypass surgery (Chronic 02/14/06) CABG x 2 HERRERA-LAD, SVG-OM 02/14/[address] 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 (Chronic) GERD (gastroesophageal reflux disease) (Chronic) HEBER (obstructive sleep apnea) (Chronic) Benign essential hypertension (Chronic) Medical History: Medical History (Last Reviewed 11/17/19 @ 14:11 by Dagmar Strickland) Chronic atrial fibrillation (Chronic) I48.2 Secondary pulmonary arterial hypertension (Chronic) I27.21 Atherosclerosis of coronary artery of [place] heart without angina pectoris (Chronic) I25.10 CABG x 2 HERRERA-LAD, SVG-OM 02/14/2006 RCF-FHF-UFLR anastomosis-LAD w/ Taxus 2.75 x 8 mm and POBA-PDA 12/23/2006 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 (Chronic) C34.12 Alcohol dependence (Inactive) F10.20 GERD (gastroesophageal reflux disease) (Chronic) K21.9 HEBER (obstructive sleep apnea) (Chronic) G47.33 Benign essential hypertension (Chronic) I10 Adenocarcinoma of lung, stage 1 C34.90 Gastric AVM Q27.33 Cancer of upper lobe of left lung C34.12 Dementia F03.90 Essential tremor G25.0 GI bleed K92.2 tsferred to [facility], transfused with 2 units PRBC's. Parkinsons G20 Allergies No Known Allergies Allergy (Verified 12/02/19 12:46) Home Medications: Ambulatory Orders Medication Instructions Recorded Folic Acid 1 mg PO DAILY@1200 05/06/13 Duloxetine HCl 60 mg PO QHS 12/04/16 Pramipexole Di-HCl [Mirapex] 0.5 mg PO TID 12/04/16 aspirin 81 mg tablet,delayed 81 mg PO DAILY 10/06/17 release docusate sodium 100 mg capsule 100 mg PO BID cap 10/20/17 gabapentin 600 mg tablet 1,200 mg PO QHS tab 10/20/17 Potassium Chloride [Klor-Con 10] 10 meq PO DAILY@1200 10/02/18 fenofibrate nanocrystallized 145 145 mg PO LUNCH #90 tab 11/27/18 mg tablet Ferrous Sulfate [Iron] 65 mg PO DAILY 02/01/19 cholecalciferol (vitamin D3) 125 5,000 unit PO DAILY 03/30/19 mcg (5,000 unit) capsule Lactobacillus Acidophilus 1 cap PO DAILY 07/12/19 [Acidophilus] Metformin HCl [Metformin HCl ER] 500 mg PO DAILY PRN PRN 07/12/19 Tamsulosin HCl [Flomax] 0.4 mg PO QHS 07/12/19 furosemide 40 mg tablet 40 mg PO BID #180 tab 08/30/19 Acetaminophen [Tylenol Extra 500 mg PO DAILY PRN PRN 09/03/19 Strength] Digoxin 250 mcg PO DAILY 09/03/19 Losartan Potassium [Cozaar] 50 mg PO BID 09/03/19 Omeprazole [Prilosec] 20 mg PO QHS 09/03/19 Pravastatin Sodium 40 mg PO QHS 09/03/19 Vit A/Vit C/Vit E/Zinc/Copper 1 ea PO BID 09/03/19 [Preservision Areds Tablet] rivaroxaban 10 mg tablet 10 mg PO DAILY #90 tab 11/15/19 Metoprolol Tartrate [Lopressor 50 mg PO DAILY 11/17/19 (Beta Taisha)] Surgical History: Surgical History (Last Reviewed 11/17/19 @ 14:12 by Dagmar Strickland) History of cardioversion (Chronic) Onset Date: 12/2016 Z98.890 H/O coronary artery bypass surgery (Chronic) Onset Date: 02/14/06 Z95.1 CABG x 2 HERRERA-LAD, SVG-OM 02/14/[address] Fei Castillo, [facility] History of hammer toe correction Z98.890, Z87.39 bilateral History of lobectomy of lung Z90.2 left History of open reduction and internal fixation (ORIF) procedure Z98.890 right History of open reduction and internal fixation (ORIF) procedure Z98.890 right elbow with nerve transplant History of tonsillectomy and adenoidectomy Z98.890 Status post surgical removal of neoplasm of skin Z98.890 right side of neck/jaw Surgical History: coronary bypass surgery Psychiatric History: No pertinent psych hx Smoking Status: Former smoker - *Family History Maternal Family History: Family History (Last Reviewed 11/17/19 @ 14:57 by Dagmar Strickland) Sister Alcoholism Cancer Mother Arthritis Father Arthritis Brother Cancer History Items: No pertinent history Paternal Family History: Family History (Last Reviewed 11/17/19 @ 14:57 by Dagmar Strickland) Sister Alcoholism Cancer Mother Arthritis Father Arthritis Brother Cancer History Items: No pertinent history Review of Systems Constitutional: Reports: Chills, Fever, Malaise, Weakness, Fatigue. Denies: Anorexia, Night Sweats, Weight Change Eyes: Denies: Blurred vision, Conjunctivae Inflammation, Drainage, Pain, Redness, Vision Change HEENT: Denies: Difficulty Hearing, Difficulty Swallowing, Dysphasia, Ear Pain, Nasal Congestion, Sinus Drainage, Sore Throat Cardiovascular: Reports: Orthopnea. Denies: Chest Pain, Claudication, Chest Pressure, Chest Tightness, Edema, Heaviness, Light Headedness, Palpitations, Paroxysmal Noc. Dyspnea, Syncope Respiratory: Reports: Shortness of Breath, Shortness of breath upon exertion. Denies: Cough, Hemoptysis, Pleuritic Pain, Shortness of breath at rest, Sputum production, Wheezing Gastrointestinal: Denies: Abdominal Pain, Constipation, Diarrhea, Dyspepsia, Hematemesis, Hematochezia, Nausea, Melena, Vomiting Genitourinary: Reports: Retention. Denies: Dysuria, Frequency, Hematuria, Hesitancy, Incontinence, Nocturia, Urgency Musculoskeletal: Denies: Back Pain, Joint Pain, Joint stiffness, Joint swelling, Joint Tenderness, Leg Pain, Muscle pain, Neck Pain Skin: Denies: Dryness, Jaundice, Lesions, Pruritis, Rash, Skin Changes, Wounds Neurological: Reports: Confusion. Denies: Balance problems, Blurred vision, Double vision, Change in Speech, Slurred speech, Difficulty swallowing, Focal weakness, Headaches, Numbness, Tingling, Tremor, Seizures Psychiatric: Denies: Anxiety, Depression Endocrine: Denies: Change in Body Habitus, Heat/ Cold Intolerance, Polydipsia, Polyuria Hematologic/ Lymphatic: Denies: Adenopathy, Anemia, Easy Bruising, Easy Bleeding, Petechiae, Purpura, Hx of blood clot VTE Information - Inpt Only VTE Present on Admission: No VTE Mechan Device Prophylaxis: None VTE Pharm Prophylaxis ordered?: No Reason prophylaxis not ordered:: Medical Contraindication - on NOAC Patient Problems: Active and Suspected Problems (Last Reviewed 11/17/19 @ 14:11 by Dagmar Strickland) Sepsis (Acute) Complicated urinary tract infection (Acute) - Physical Exam Vitals/I&O's: Vital Signs Temp Pulse Resp BP Pulse Ox 101.6 F H 76 29 H 173/59 H 91 12/02/19 13:42 12/02/19 13:42 12/02/19 13:42 12/02/19 13:42 12/02/19 13:42 Oxygen Flow Rate (L/min) 3 Oxygen Delivery Method Nasal Cannula Weight: 129.1 kg Body Mass Index (BMI) 40.8 Finger Stick Blood Glucose 121 General: Alert, Cooperative, No apparent distress, Well developed, Well nourished, Confused - mild HEENT: Atraumatic, PERRLA, EOMI, Normocephalic, EAC Clear Oral: No Gingival or Mucosal Lesions/ Ulcerations, Dry Mucosa, - - Mallampati 3, fair dentition Neck: Supple, No JVD, Negative Carotid Bruits, Negative Hepatojugular Reflux, No Nodes, No Nuchal Rigidity, Trachea Midline, Thyroid Normal Size and Texture Lungs: Clear to auscultation, Normal air movement, No rhonchi, No wheeze, No rales Cardiovascular: Regular rate, Normal S1, Normal S2, No murmurs, No Ectopic Activity, No rub noted, No Gallop, - - irreg rhythm Abdomen: Bowel Sounds Present, Soft, Non Tender, Non-Distended, No Hepato-splenomegaly, Obese, No hernias noted Extremities: No clubbing, No cyanosis, Capillary Refill Less than 3 Seconds, Edema - trace Skin: No rashes, No breakdown Musculoskeletal: No Tenderness to Palpation of Joints or Extremities, No Muscle Wasting, Arthritic Changes Lymphatic: No Cervical, Supraclavicular, or Inguinal Adenopathy Neurological: Cranial nerves II-XII grossly intact, Deep Tendon Reflexes 2+/4 and Symmetrical, Neuro grossly intact, Motor Exam 5/5 strength throughout, Muscle tone normal, Sensory exam intact to light touch and pain, Coordination normal Psych/Mental Status: Normal Affect, Appropriate, - - mild confusion Laboratory Results 12/02/19 13:13: Lactic Acid 1.8 12/02/19 13:15: WBC 17.9 H, RBC 4.13 L, Hgb 12.7 L, Hct 40.0, MCV 96.9 H, MCH 30.8, MCHC 31.8 L, RDW Std Deviation 58.9 H, RDW Coeff of Iram 16.5 H, Plt Count 252, MPV 10.0, Immature Gran % (Auto) 0.700, Neut % (Auto) 89.1 H, Lymph % (Auto) 2.5 L, [place] % (Auto) 7.0, Eos % (Auto) 0.4, Baso % (Auto) 0.3, Absolute Neuts (auto) 15.9 H, Absolute Lymphs (auto) 0.45 L, Nucleated RBC % 0 12/02/19 13:15: PT 17.2 H, INR 1.5, APTT 43.1 H 12/02/19 13:15: Sodium 136, Potassium 3.9, Chloride 99, Carbon Dioxide 31.0, Anion Gap 6, BUN 15, Creatinine 1.36 H, Estim Creat Clear Calc 49.20, Est GFR (MDRD) Af Amer 66, Est GFR (MDRD) Non-Af 54 L, BUN/Creatinine Ratio 11.0, Glucose 136 H, Calcium 9.1, Total Bilirubin 1.00, AST 22, ALT 14 L, Alkaline Phosphatase 72, Troponin I 0.074 H, Total Protein 7.2, Albumin 3.2, Globulin 4.0, Albumin/Globulin Ratio 0.8 L 12/02/19 13:20: COVID-19 (CHARLIE) Pending 12/02/19 13:30: Urine Color Straw, Urine Clarity Sl. Cloudy, Urine pH 6.5, Ur Specific [place] 1.015, Urine Protein 100 H, Urine Glucose (UA) Normal, Urine Ketones Negative, Urine Occult Blood 25 H, Urine Nitrite Negative, Urine Bilirubin Negative, Urine Urobilinogen 1 H, Ur Leukocyte Esterase 500 H, Urine RBC 0 SEEN, Urine WBC 10-25 SEEN, Ur Squamous Epith Cells 0-5 SEEN, Urine Bacteria 3+, Urine Mucus 0 SEEN Current Medications Sodium Chloride () 1,000 mls @ 999 mls/hr IV .Q1H1M [facility]; Protocol Stop: 12/02/19 17:25 Assessment/Plan All Active Problems (Last Reviewed 11/17/19 @ 14:11 by Dagmar Strickland) UTI (urinary tract infection) (Acute) Severe sepsis (Acute) Pneumonia (Acute) Sepsis (Acute) Complicated urinary tract infection (Acute) Severe Sepsis 2/2 to suspected UTI +/- Bacteremia -Admit to ICU with sepsis order set -Will give Vanc and Cefepime for now and narrow per cx -Cultures-Blood and Urine are pending -MRSA screen -UA is c/w infection -cycle lactates -COVID is -Will check retroperitoneal US with frequent infections -would do post void residual prior to d/c once sx are improved -needs urology f/u -consult ICU 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 -baseline sCr is about 1.0 -gentle hydration for now with LR at 70 cc/hr and reassess in am -BMP in am and if not improving would do further workup Mild Troponin Elevation -0.074 on admission -EKG a-fib without -cycle enzymes -repeat EKG in am -suspect 2/2 stress induced ischemia Mild Anemia -no s/o active bleeding -does have some minimal occult blood on UA -most likely 2/2 infection but will need repeat after treatment is completed Microscopic Hematuria -check UA once infection is cleared for resolution HTN/HPL/CAD -continue BB -continue Losartan -continue statin and Tricor -continue ASA HFpEF -ECHO 06/2019 with EF 50% with global borderline dysfunction of LV, Global RV dysfunction with dilation,TR, RVSP of 73mmHg, DAVIN -hold lasix -check dig level in am but continue for now -continue other home meds HEBER -CPAP Permanent A-fib -continue Dig -check level in am -continue BB -continue Xarelto COPD -chonic O2 at 2 L -aerosols PRN DM-2 -hold Metformin -AC BGT -AC SSI RLD -conitnue mirapex DM Neuropathy -continue Gabapentin but watch sCr closely DVT prophylaxis -NOAC Code Status -DNR-CCA--> confirmed with pt today while at bedside Inpatient E&M: 21193 Init Hosp L3
[2019-12-02] MEDS: Acetaminophen 325 MG Tablet 650 MG PO ×2 (14:17→20:51)
[2019-12-02] MEDS: 0.9% Normal Saline 1,000 ML 999 ML IV (14:33)
[2019-12-02 16:26] LABS: Bedside Glucose 113 mg/dL (70-110)
[2019-12-02 19:00] LABS: M R Staph aureus DNA By PCR Negative (Negative); Probe Check PASS; Specimen Processing Control PASS
--- NOTE | 2019-12-02 19:16 | US_ITS ---
STUDY: RENAL ULTRASOUND - COMPLETE REASON FOR EXAM: Male, 74 years old. Acute kidney injury TECHNIQUE: Ultrasound evaluation of the kidneys was performed with real-time and static dolan-scale imaging. COMPARISON: CT scan 11/10/2019. FINDINGS: RIGHT KIDNEY: Normal location of the right kidney, which is normal in size. The right kidney measures 12.5 x 6.3 x 6.3 cm. There is a normal cortex of the right kidney. The renal cortex measures 1.6 cm. There is no right renal mass or cyst. There are no right renal calculi. There is no right hydronephrosis. DISTAL RIGHT URETER: There is non-visualization of the distal right ureter. There is no demonstrated right ureterovesical junction calculus. There is no demonstrated right ureteral jet. LEFT KIDNEY: Normal location of the left kidney, which is normal in size. The left kidney measures 11.4 x 5.8 x 5.5 cm. There is a normal cortex of the left kidney. The renal cortex measures 1.5 cm. There is no left renal mass or cyst. There are no left renal calculi. There is no left hydronephrosis. DISTAL LEFT URETER: There is non-visualization of the distal left ureter. There is no demonstrated left ureterovesical junction calculus. There is no demonstrated left ureteral jet. Stable right adrenal mass measuring 4.9 x 4.1 x 3.7 cm. BLADDER: The bladder is not distended. There is a normal wall thickness of the distended urinary bladder. There is no demonstrated mass within the urinary bladder. There are no demonstrated bladder calculi. US/Kidney and Bladder IMPRESSION: No definite acute or significant abnormality seen of the kidneys. Grossly stable right adrenal mass. Electronically Signed: Marino Danielson MD at 20:10 EDT , Service support ,
--- NOTE | 2019-12-02 19:16 | ECHOD_ITS ---
Reason For Study: DYSPNEA/SOB Procedure This was a 2D Doppler, Color Flow transthoracic echocardiogram. The study was technically difficult. Due to body habitus and arrhythmia. Deferred Definity due to increased PAP >70 mmHg. Exam performed portable in ICU/CCU. Left Ventricle Normal LV size. The estimated ejection fraction is 55 %. Diastolic function is indeterminate. septal hypokinesis. Right Ventricle Moderately dilated right ventricle. Moderate global right ventricular systolic dysfunction. Atria The left atrium is moderately enlarged. The right atrium is moderately enlarged. Mitral Valve There is no mitral valve stenosis. No mitral valve insufficiency. Tricuspid Valve There is no tricuspid stenosis. Mild tricuspid valve insufficiency. Pulmonary artery systolic pressure is 80 mmHg. Aortic Valve Trisinus/trileaflet aortic valve. There is no aortic stenosis. No aortic valve insufficiency. Pulmonic Valve There is no pulmonic valvular stenosis. No pulmonic valve insufficiency. Great Vessels Normal aortic root. Pericardium/Pleural No pericardial effusion. MMode/2D Measurements & Calculations LVIDd: 5.0 cm IVSd: 1.0 cm LAV(MOD-bp): 121.7 ml LVIDs: 3.9 cm LVPWd: 1.1 cm LAV(MOD-bp) Indexed: 49.6 ml/m2 RVDd: 4.1 cm FS: 21.5 % LAV(MOD-sp2): 115.7 ml LAV(MOD-sp4): 100.0 ml LA dimension(2D): 5.3 cm LA A4 area: 30.6 cm2 RA A4 area: 25.9 cm2 Time Measurements MV dec time: 0.16 sec Doppler Measurements & Calculations MV E max chris: 107.9 cm/sec Lat Peak E' Chris: 8.8 cm/sec Med Peak E' Chris: 6.5 cm/sec MV A max chris: 25.8 cm/sec E/E' lat: 12.3 E/E' med: 16.6 MV E/A: 4.2 Ao V2 max: 160.3 cm/sec LV V1 max: 92.4 cm/sec PA V2 max: 111.8 cm/sec Ao max P.3 mmHg LV V1 max P.4 mmHg PI end-d chris: 142.8 cm/sec TR max chris: 408.7 cm/sec TR max P.2 mmHg Interpretation Summary The estimated ejection fraction is 55 %. Diastolic function is indeterminate. septal hypokinesis Moderately dilated right ventricle. Moderate global right ventricular systolic dysfunction. The left atrium is moderately enlarged. The right atrium is moderately enlarged. Mild tricuspid valve insufficiency. Pulmonary artery systolic pressure is 80 mmHg. The study was technically difficult. Ordering Physician: Jackie Echeverria Referring Physician: Fany Hobson Performed By: Vanda Christian, MENDEZ, RVT
[2019-12-02] MEDS: Docusate Sodium 100 MG Capsule PO (20:52)
[2019-12-02] MEDS: Pravastatin 40 MG Tablet PO (20:53)
[2019-12-02] MEDS: DULoxetine Hcl 60 MG Capsule PO (20:53)
[2019-12-02] MEDS: Pramipexole Di-HCl 0.5 MG Tablet PO (20:53)
[2019-12-02] MEDS: Tamsulosin HCl 0.4 MG Capsule PO (20:54)
[2019-12-02] MEDS: Losartan Potassium 50 MG Tablet PO (20:54)
[2019-12-02] MEDS: Pantoprazole Sodium 20 MG Tablet PO (20:55)
[2019-12-02] MEDS: Gabapentin 600 MG Tablet 1200 MG PO (20:55)
[2019-12-02] MEDS: Lactated Ringers 1,000 ML 70 ML IV (20:55)
[2019-12-03] VITALS (29 sets, daily range): BP systolic 138–222; BP diastolic 48–90; PULSE 62–97; RESP 18–32; TEMP 36.7–38.6; O2SAT 91–100
[2019-12-03 00:01] LABS: Bedside Glucose 142 mg/dL (70-110)
[2019-12-03] MEDS: Acetaminophen 325 MG Tablet 650 MG PO ×3 (04:39→22:49)
[2019-12-03] MEDS: 0.9% Saline Lock 10 ML Syringe IV (04:40)
[2019-12-03 04:49] LABS: Absolute Lymphocyte Count 0.74 X10^3/uL (0.83-4.51); Absolute Neutrophil Count 16.7 X10^3/uL (2.0-7.7); Basophil# 0.04 X10^3/uL; Basophil% 0.2 % (0-1); Eosinophil# 0.03 X10^3/uL; Eosinophils% 0.2 % (0-5); Hematocrit 36.1 % (40-54); Hemoglobin 11.5 g/dL (13.0-16.5); Lymphocyte # 0.74 X10^3/ul (4.0); Lymphocyte % 3.8 % (19-41); Mean Corp Hgb Conc 31.9 g/dL (32-36); Mean Corpuscular Hgb 31.1 pg (27.0-32.0); Mean Corpuscular Volume 97.6 fL (80-94); Mean Platelet Vol. 10.1 fl (6.2-12.0); Monocyte# 1.88 X10^3/uL; Monocyte% 9.6 % (0-10); NRBC Flagged by Analyzer 0 % (0-5); Neutrophil % 85.6 % (47-70); POSITIVE DIFFERENTIAL YES; Platelet Count 211 K/mm3 (150-450); RBC Distribution Width CV 16.7 % (11.6-14.6); RBC Distribution Width SD 59.7 fl (35.1-43.9); White Blood Count 19.5 K/mm3 (4.4-11.0)
[2019-12-03 04:53] LABS: Differential Indicated SCAN CRITERIA MET
[2019-12-03 05:07] LABS: Anion Gap 7 (5-15); BUN 15 mg/dL (7-18); BUN/Creat Ratio 11.4 RATIO (10-20); Calcium,Total 8.1 mg/dL (8.5-10.1); Chloride 102 mmol/L (98-107); Creatinine, Serum 1.32 mg/dL (0.70-1.30); EST Glomerular Filtration Rate 56 mL/min (>60); Est Glom Filt Rate - Afr Amer 68 mL/min (>60); Estimated Creatinine Clearance 52.29 ml/min; Glucose 137 mg/dL (74-106); Magnesium 1.9 mg/dL (1.6-2.6); Potassium 3.5 mmol/L (3.5-5.1); Sodium Level 138 mmol/L (136-145)
[2019-12-03 05:17] LABS: Vancomycin, Random Level 11.5 ug/mL (0.0-15.0)
[2019-12-03 05:22] LABS: Phosphorus 2.4 mg/dL (2.5-4.9)
[2019-12-03 05:36] LABS: Digoxin Level 1.66 ng/mL (0.80-2.00)
[2019-12-03] MEDS: Pramipexole Di-HCl 0.5 MG Tablet PO ×3 (05:59→22:52)
[2019-12-03 06:16] LABS: Differential Comment SCANNED
--- NOTE | 2019-12-03 06:31 | PCM.CON.CC ---
Reason for Consult Date of Consultation: 12/03/19 Reason for Consultation: Severe sepsis History of Present Illness: The patient is a 74-year-old male, with a history as outlined below, who presented to the emergency department on December 01 with generalized malaise, weakness, fatigue and fever. The patient was recently admitted to the hospital in August with severe sepsis secondary to E. coli complicated UTI and pyelonephritis. The patient has a known history of coronary artery disease, chronic atrial fibrillation along with a past history of alcohol and tobacco dependency. The patient also has a history of adenocarcinoma of the left lung. He underwent a wedge resection in May 2017. The patient does report a history of recurrent urinary tract infections. He stated that he had a high-grade fever at home and was feeling rather under the weather. He did report dark-colored urine and dysuria. He currently denies any abdominal pain, nausea or vomiting. On presentation to the emergency department, the patient was noted to be febrile to 103.3 ?F. He was tachypneic but still maintaining appropriate oxygen saturations on room air. Laboratory evaluation revealed an elevated white blood cell count to 18,000. Chemistry profile was notable for a creatinine of 1.36. Lactate was noted to be 1.8. Troponin was increased to 0.074. Urinalysis was notable for leukocyte esterase and 3+ urine bacteria. COVID testing was negative. MRSA screen was negative. Chest x-ray revealed no acute cardiopulmonary process. Renal ultrasound was largely unremarkable. The patient was provided with supplemental IV fluid hydration and was started on broad-spectrum antimicrobials. He was subsequently admitted to the medical intensive care unit for further management. Past Medical History Past Medical History (Chronic Problems): Chronic Problems (Last Reviewed 11/17/19 @ 14:11 by Dagmar Strickland) Status post insertion of iliac artery stent (Chronic ~08/04/12) Bilateral iliac artery stents 08/04/12 Iron deficiency anemia due to chronic blood loss (Chronic) Gastric AVMs, September 2017 Chronic atrial fibrillation (Chronic) History of cardioversion (Chronic 12/2016) Secondary pulmonary arterial hypertension (Chronic) Atherosclerosis of coronary artery of [place] heart without angina pectoris (Chronic) CABG x 2 HERRERA-LAD, SVG-OM 02/14/2006 [id number] anastomosis-LAD w/ Taxus 2.75 x 8 mm and POBA-PDA 12/23/2006 H/O coronary artery bypass surgery (Chronic 02/14/06) CABG x 2 HERRERA-LAD, SVG-OM 02/14/[address] Fei Castillo, [facility] 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 (Chronic) GERD (gastroesophageal reflux disease) (Chronic) HEBER (obstructive sleep apnea) (Chronic) Benign essential hypertension (Chronic) Medical History: Medical History (Last Reviewed 11/17/19 @ 14:11 by Dagmar Strickland) Chronic atrial fibrillation (Chronic) I48.2 Secondary pulmonary arterial hypertension (Chronic) I27.21 Atherosclerosis of coronary artery of [place] heart without angina pectoris (Chronic) I25.10 CABG x 2 HERRERA-LAD, SVG-OM 02/14/2006 [id number] anastomosis-LAD w/ Taxus 2.75 x 8 mm and POBA-PDA 12/23/2006 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 (Chronic) C34.12 Alcohol dependence (Inactive) F10.20 GERD (gastroesophageal reflux disease) (Chronic) K21.9 HEBER (obstructive sleep apnea) (Chronic) G47.33 Benign essential hypertension (Chronic) I10 Adenocarcinoma of lung, stage 1 C34.90 Gastric AVM Q27.33 Cancer of upper lobe of left lung C34.12 Dementia F03.90 Essential tremor G25.0 GI bleed K92.2 tsferred to [facility], transfused with 2 units PRBC's. Parkinsons G20 Allergies No Known Allergies Allergy (Verified 12/02/19 12:46) Home Medications: Ambulatory Orders Medication Instructions Recorded Folic Acid 1 mg PO DAILY@1200 05/06/13 Duloxetine HCl 60 mg PO QHS 12/04/16 Pramipexole Di-HCl [Mirapex] 0.5 mg PO TID 12/04/16 aspirin 81 mg tablet,delayed 81 mg PO DAILY 10/06/17 release docusate sodium 100 mg capsule 100 mg PO BID cap 10/20/17 gabapentin 600 mg tablet 1,200 mg PO QHS tab 10/20/17 Potassium Chloride [Klor-Con 10] 10 meq PO DAILY@1200 10/02/18 fenofibrate nanocrystallized 145 145 mg PO LUNCH #90 tab 11/27/18 mg tablet Ferrous Sulfate [Iron] 65 mg PO DAILY 02/01/19 cholecalciferol (vitamin D3) 125 5,000 unit PO DAILY 03/30/19 mcg (5,000 unit) capsule Lactobacillus Acidophilus 1 cap PO DAILY 07/12/19 [Acidophilus] Metformin HCl [Metformin HCl ER] 500 mg PO DAILY PRN PRN 07/12/19 Tamsulosin HCl [Flomax] 0.4 mg PO QHS 07/12/19 furosemide 40 mg tablet 40 mg PO BID #180 tab 08/30/19 Acetaminophen [Tylenol Extra 500 mg PO DAILY PRN PRN 09/03/19 Strength] Digoxin 250 mcg PO DAILY 09/03/19 Losartan Potassium [Cozaar] 50 mg PO BID 09/03/19 Omeprazole [Prilosec] 20 mg PO QHS 09/03/19 Pravastatin Sodium 40 mg PO QHS 09/03/19 Vit A/Vit C/Vit E/Zinc/Copper 1 ea PO BID 09/03/19 [Preservision Areds Tablet] rivaroxaban 10 mg tablet 10 mg PO DAILY #90 tab 11/15/19 Metoprolol Tartrate [Lopressor 50 mg PO DAILY 11/17/19 (Beta Taisha)] Surgical History: Surgical History (Last Reviewed 11/17/19 @ 14:12 by Dagmar Strickland) History of cardioversion (Chronic) Onset Date: 12/2016 Z98.890 H/O coronary artery bypass surgery (Chronic) Onset Date: 02/14/06 Z95.1 CABG x 2 HERRERA-LAD, SVG-OM 02/14/[address] Fei Castillo, [facility] History of hammer toe correction Z98.890, Z87.39 bilateral History of lobectomy of lung Z90.2 left History of open reduction and internal fixation (ORIF) procedure Z98.890 right History of open reduction and internal fixation (ORIF) procedure Z98.890 right elbow with nerve transplant History of tonsillectomy and adenoidectomy Z98.890 Status post surgical removal of neoplasm of skin Z98.890 right side of neck/jaw Surgical History: coronary bypass surgery Psychiatric History: No pertinent psych hx Smoking Status: Former smoker - *Family History Maternal Family History: Family History (Last Reviewed 11/17/19 @ 14:57 by Dagmar Strickland) Sister Alcoholism Cancer Mother Arthritis Father Arthritis Brother Cancer History Items: No pertinent history Paternal Family History: Family History (Last Reviewed 11/17/19 @ 14:57 by Dagmar Strickland) Sister Alcoholism Cancer Mother Arthritis Father Arthritis Brother Cancer History Items: No pertinent history Review of Systems Constitutional: Reports: Chills, Fever, Malaise, Fatigue Eyes: Denies: Blurred vision, Double vision HEENT: Denies: Head Aches, Sinus Congestion, Sinus Drainage Cardiovascular: Denies: Chest Pain, Palpitations Respiratory: Denies: Cough, Shortness of breath at rest, Sputum production Gastrointestinal: Denies: Abdominal Pain, Nausea, Vomiting Genitourinary: Reports: Dysuria Musculoskeletal: Denies: Joint Pain, Joint Tenderness Skin: Denies: Rash, Wounds Neurological: Denies: Numbness, Tingling, Focal weakness Psychiatric: Denies: Anxiety, Depression, Homicidal Ideations, Suicidal Ideations Hematologic/ Lymphatic: Reports: Anemia Patient Problems: Active and Suspected Problems (Last Reviewed 11/17/19 @ 14:11 by Dagmar Strickland) Sepsis (Acute) Complicated urinary tract infection (Acute) Objective: The patient's most recent lab work, culture data and imaging studies have all been personally reviewed. Surface echocardiogram dated June 2019 revealed an ejection fraction of 50%. The RV was moderately dilated with moderate global RV systolic dysfunction. Right ventricular systolic pressure was estimated to be 73 mmHg. Coronavirus PCR was negative. Preliminary blood culture dated December 01 was positive for gram-negative rods. - Physical Exam Vitals/I&O's: Vital Signs Temp Pulse Resp BP Pulse Ox 100.7 F H 77 23 H 140/59 H 97 12/03/19 04:00 12/03/19 06:00 12/03/19 06:00 12/03/19 06:00 12/03/19 06:00 Oxygen Flow Rate (L/min) 3 Oxygen Delivery Method Room Air Weight: 285 lb 0.923 oz Body Mass Index (BMI) 39.4 Finger Stick Blood Glucose 121 Intake and Output for Last 24 Hours 12/01/19 12/02/19 12/03/19 23:59 23:59 23:59 Intake Total 2490 / 2490 100 / 100 Output Total 200 / 400 350 / 350 Balance 2290 / 2090 -250 / -250 General: Alert, Oriented x3, Cooperative, No apparent distress HEENT: Atraumatic, PERRLA, Normocephalic Oral: No Gingival or Mucosal Lesions/ Ulcerations Neck: Supple, No Nodes, Trachea Midline Lungs: No rhonchi, No wheeze, No rales Cardiovascular: Normal S1, Normal S2, Irregular Rate Abdomen: Bowel Sounds Present, Soft, Non Tender, Obese Extremities: No clubbing, No cyanosis, No edema Skin: No breakdown Musculoskeletal: No Tenderness to Palpation of Joints or Extremities Lymphatic: No Cervical, Supraclavicular, or Inguinal Adenopathy Neurological: Cranial nerves II-XII grossly intact, Neuro grossly intact Psych/Mental Status: Alert and oriented to time, place, person, mood and affect Labs (Last 48 Hours) 12/02/19 12/02/19 12/02/19 13:13 13:15 13:15 WBC 17.9 H RBC 4.13 L Hgb 12.7 L Hct 40.0 MCV 96.9 H MCH 30.8 MCHC 31.8 L RDW Std Deviation 58.9 H RDW Coeff of Iram 16.5 H Plt Count 252 MPV 10.0 Immature Gran % (Auto) 0.700 Neut % (Auto) 89.1 H Lymph % (Auto) 2.5 L Mills % (Auto) 7.0 Eos % (Auto) 0.4 Baso % (Auto) 0.3 Absolute Neuts (auto) 15.9 H Absolute Lymphs (auto) 0.45 L Nucleated RBC % 0 Differential Comment Diff Path Review PT 17.2 H INR 1.5 APTT 43.1 H Sodium Potassium Chloride Carbon Dioxide Anion Gap BUN Creatinine Estim Creat Clear Calc Est GFR (MDRD) Af Amer Est GFR (MDRD) Non-Af BUN/Creatinine Ratio Glucose Lactic Acid 1.8 Calcium Phosphorus Magnesium Total Bilirubin AST ALT Alkaline Phosphatase Troponin I Total Protein Albumin Globulin Albumin/Globulin Ratio Urine Color Urine Clarity Urine pH Ur Specific [place] Urine Protein Urine Glucose (UA) Urine Ketones Urine Occult Blood Urine Nitrite Urine Bilirubin Urine Urobilinogen Ur Leukocyte Esterase Urine RBC Urine WBC Ur Squamous Epith Cells Urine Bacteria Urine Mucus Random Vancomycin Digoxin COVID-19 (CHARLIE) MRSA (PCR) POC Glucose 12/02/19 12/02/19 12/02/19 13:15 13:20 13:20 WBC RBC Hgb Hct MCV MCH MCHC RDW Std Deviation RDW Coeff of Iram Plt Count MPV Immature Gran % (Auto) Neut % (Auto) Lymph % (Auto) Mills % (Auto) Eos % (Auto) Baso % (Auto) Absolute Neuts (auto) Absolute Lymphs (auto) Nucleated RBC % Differential Comment Diff Path Review PT INR APTT Sodium 136 Potassium 3.9 Chloride 99 Carbon Dioxide 31.0 Anion Gap 6 BUN 15 Creatinine 1.36 H Estim Creat Clear Calc 49.20 Est GFR (MDRD) Af Amer 66 Est GFR (MDRD) Non-Af 54 L BUN/Creatinine Ratio 11.0 Glucose 136 H Lactic Acid Calcium 9.1 Phosphorus Magnesium Total Bilirubin 1.00 AST 22 ALT 14 L Alkaline Phosphatase 72 Troponin I 0.074 H Total Protein 7.2 Albumin 3.2 Globulin 4.0 Albumin/Globulin Ratio 0.8 L Urine Color Urine Clarity Urine pH Ur Specific [place] Urine Protein Urine Glucose (UA) Urine Ketones Urine Occult Blood Urine Nitrite Urine Bilirubin Urine Urobilinogen Ur Leukocyte Esterase Urine RBC Urine WBC Ur Squamous Epith Cells Urine Bacteria Urine Mucus Random Vancomycin Digoxin COVID-19 (CHARLIE) Cancelled Not Detected MRSA (PCR) POC Glucose 12/02/19 12/02/19 12/02/19 13:30 16:13 16:15 WBC RBC Hgb Hct MCV MCH MCHC RDW Std Deviation RDW Coeff of Iram Plt Count MPV Immature Gran % (Auto) Neut % (Auto) Lymph % (Auto) Mills % (Auto) Eos % (Auto) Baso % (Auto) Absolute Neuts (auto) Absolute Lymphs (auto) Nucleated RBC % Differential Comment Diff Path Review PT INR APTT Sodium Potassium Chloride Carbon Dioxide Anion Gap BUN Creatinine Estim Creat Clear Calc Est GFR (MDRD) Af Amer Est GFR (MDRD) Non-Af BUN/Creatinine Ratio Glucose Lactic Acid Calcium Phosphorus Magnesium Total Bilirubin AST ALT Alkaline Phosphatase Troponin I 0.176 H Total Protein Albumin Globulin Albumin/Globulin Ratio Urine Color Straw Urine Clarity Sl. Cloudy Urine pH 6.5 Ur Specific [place] 1.015 Urine Protein 100 H Urine Glucose (UA) Normal Urine Ketones Negative Urine Occult Blood 25 H Urine Nitrite Negative Urine Bilirubin Negative Urine Urobilinogen 1 H Ur Leukocyte Esterase 500 H Urine RBC 0 SEEN Urine WBC 10-25 SEEN Ur Squamous Epith Cells 0-5 SEEN Urine Bacteria 3+ Urine Mucus 0 SEEN Random Vancomycin Digoxin COVID-19 (CHARLIE) MRSA (PCR) POC Glucose 113 H 12/02/19 12/02/19 12/03/19 16:58 23:49 04:30 WBC RBC Hgb Hct MCV MCH MCHC RDW Std Deviation RDW Coeff of Iram Plt Count MPV Immature Gran % (Auto) Neut % (Auto) Lymph % (Auto) Mills % (Auto) Eos % (Auto) Baso % (Auto) Absolute Neuts (auto) Absolute Lymphs (auto) Nucleated RBC % Differential Comment Diff Path Review PT INR APTT Sodium 138 Potassium 3.5 Chloride 102 Carbon Dioxide 29.0 Anion Gap 7 BUN 15 Creatinine 1.32 H Estim Creat Clear Calc 52.29 Est GFR (MDRD) Af Amer 68 Est GFR (MDRD) Non-Af 56 L BUN/Creatinine Ratio 11.4 Glucose 137 H Lactic Acid Calcium 8.1 L Phosphorus Magnesium 1.9 Total Bilirubin AST ALT Alkaline Phosphatase Troponin I Total Protein Albumin Globulin Albumin/Globulin Ratio Urine Color Urine Clarity Urine pH Ur Specific [place] Urine Protein Urine Glucose (UA) Urine Ketones Urine Occult Blood Urine Nitrite Urine Bilirubin Urine Urobilinogen Ur Leukocyte Esterase Urine RBC Urine WBC Ur Squamous Epith Cells Urine Bacteria Urine Mucus Random Vancomycin Digoxin COVID-19 (CHARLIE) MRSA (PCR) Negative POC Glucose 142 H 12/03/19 12/03/19 12/03/19 04:30 04:30 04:30 WBC 19.5 H RBC 3.70 L Hgb 11.5 L Hct 36.1 L MCV 97.6 H MCH 31.1 MCHC 31.9 L RDW Std Deviation 59.7 H RDW Coeff of Iram 16.7 H Plt Count 211 MPV 10.1 Immature Gran % (Auto) 0.600 Neut % (Auto) 85.6 H Lymph % (Auto) 3.8 L Mills % (Auto) 9.6 Eos % (Auto) 0.2 Baso % (Auto) 0.2 Absolute Neuts (auto) 16.7 H Absolute Lymphs (auto) 0.74 L Nucleated RBC % 0 Differential Comment SCANNED Diff Path Review May foll PT INR APTT Sodium Potassium Chloride Carbon Dioxide Anion Gap BUN Creatinine Estim Creat Clear Calc Est GFR (MDRD) Af Amer Est GFR (MDRD) Non-Af BUN/Creatinine Ratio Glucose Lactic Acid Calcium Phosphorus 2.4 L Magnesium Total Bilirubin AST ALT Alkaline Phosphatase Troponin I Total Protein Albumin Globulin Albumin/Globulin Ratio Urine Color Urine Clarity Urine pH Ur Specific [place] Urine Protein Urine Glucose (UA) Urine Ketones Urine Occult Blood Urine Nitrite Urine Bilirubin Urine Urobilinogen Ur Leukocyte Esterase Urine RBC Urine WBC Ur Squamous Epith Cells Urine Bacteria Urine Mucus Random Vancomycin Digoxin 1.66 COVID-19 (CHARLIE) MRSA (PCR) POC Glucose 12/03/19 04:30 WBC RBC Hgb Hct MCV MCH MCHC RDW Std Deviation RDW Coeff of Iram Plt Count MPV Immature Gran % (Auto) Neut % (Auto) Lymph % (Auto) Mills % (Auto) Eos % (Auto) Baso % (Auto) Absolute Neuts (auto) Absolute Lymphs (auto) Nucleated RBC % Differential Comment Diff Path Review PT INR APTT Sodium Potassium Chloride Carbon Dioxide Anion Gap BUN Creatinine Estim Creat Clear Calc Est GFR (MDRD) Af Amer Est GFR (MDRD) Non-Af BUN/Creatinine Ratio Glucose Lactic Acid Calcium Phosphorus Magnesium Total Bilirubin AST ALT Alkaline Phosphatase Troponin I Total Protein Albumin Globulin Albumin/Globulin Ratio Urine Color Urine Clarity Urine pH Ur Specific [place] Urine Protein Urine Glucose (UA) Urine Ketones Urine Occult Blood Urine Nitrite Urine Bilirubin Urine Urobilinogen Ur Leukocyte Esterase Urine RBC Urine WBC Ur Squamous Epith Cells Urine Bacteria Urine Mucus Random Vancomycin 11.5 Digoxin COVID-19 (CHARLIE) MRSA (PCR) POC Glucose Microbiology 12/02/19 13:25 Blood Culture (Wb) - Anticubital Right Blood Culture - Preliminary 12/02/19 13:30 Urine Catheter - Catheter Legionella Antigen - Final 12/02/19 13:30 Urine Catheter - Catheter Streptococcus pneumoniae Antigen (M - Final Clinical Impression(s) from Imaging Studies Chest X-Ray 12/02/19 13:52 IMPRESSION: No change. COPD with fibrosis. Electronically Signed: Marino Danielson MD at 15:15 EDT , Service support , Renal Ultrasound 12/02/19 19:16 IMPRESSION: No definite acute or significant abnormality seen of the kidneys. Grossly stable right adrenal mass. Electronically Signed: Marino Danielson MD at 20:10 EDT , Service support , Current Medications Acetaminophen (Tylenol) 650 mg PO Q6H PRN PRN PRN Reason: Pain Score 1-10/Temp > 100.7 F Last Admin: 12/03/19 04:39 Dose: 650 mg Documented by: Albuterol Sulfate (Ventolin Aerosols) 2.5 mg INHALATION Q2H PRN PRN PRN Reason: SOB/Wheezing [facility] Chlorhexidine Gluconate () 1 each TOPICAL DAILY [facility] Dextrose (D50w Syringe) 0 gm IV X1 PRN; Protocol PRN Reason: Hypoglycemia Digoxin (Lanoxin) 250 mcg PO DAILY [facility] Docusate Sodium (Colace) 100 mg PO BID@1200,2200 [facility] Last Admin: 12/02/19 20:52 Dose: 100 mg Documented by: Duloxetine HCl (Cymbalta) 60 mg PO QHS [facility] Last Admin: 12/02/19 20:53 Dose: 60 mg Documented by: Fenofibrate (Tricor) 145 mg PO LUNCH [facility] Ferrous Sulfate (Ferrous Sulfate) [facility] Folic Acid (Folic Acid) 1 mg PO DAILY@1200 [facility] Gabapentin (Neurontin) 1,200 mg PO QHS [facility] Last Admin: 12/02/19 20:55 Dose: 1,200 mg Documented by: Glucagon () 1 mg IM .X1 PRN PRN Reason: Hypoglycemia Cefepime HCl 2 gm/ Sodium (Chloride) 100 mls @ 200 mls/hr IV Q24 [facility] Last Infusion: 12/02/19 20:00 Dose: Infused Documented by: Lactated Ringer's () 1,000 mls @ 70 mls/hr IV .[id number] [facility] Last Admin: 12/02/19 20:55 Dose: 70 mls/hr Documented by: Insulin Human Lispro (Humalog Kwikpen (Bkc)) 0 unit SC [facility]; Protocol Last Admin: 12/02/19 16:25 Dose: Not Given Documented by: Lactobacillus Acidophilus (Acidophilus) 1 tablet PO DAILY [facility] Losartan Potassium (Cozaar) 50 mg PO BID [facility] Last Admin: 12/02/19 20:54 Dose: 50 mg Documented by: Melatonin (Melatonin) 3 mg PO QHS PRN PRN PRN Reason: INSOMNIA Metoprolol Tartrate (Lopressor (Beta Taisha)) 50 mg PO DAILY [facility] Pantoprazole Sodium (Protonix) 20 mg PO QHS [facility] Last Admin: 12/02/19 20:55 Dose: 20 mg Documented by: Pramipexole Dihydrochloride (Mirapex) 0.5 mg PO TID [facility] Last Admin: 12/03/19 05:59 Dose: 0.5 mg Documented by: Pravastatin Sodium (Pravachol) 40 mg PO QHS [facility] Last Admin: 12/02/19 20:53 Dose: 40 mg Documented by: Rivaroxaban (Xarelto) 10 mg PO DAILY [facility] Sodium Chloride () 10 - 40 ml IV UD PRN PRN Reason: SALINE FLUSH Last Admin: 12/03/19 04:40 Dose: 10 ml Documented by: Tamsulosin HCl (Flomax) 0.4 mg PO QHS [facility] Last Admin: 12/02/19 20:54 Dose: 0.4 mg Documented by: Assessment/Plan Active and Suspected Problems (Last Reviewed 11/17/19 @ 14:11 by Dagmar Strickland) Sepsis (Acute) Complicated urinary tract infection (Acute) RECOMMENDATIONS: 1. Continue broad-spectrum antimicrobials. 2. Discontinue supplemental IV fluids. 3. Encourage incentive spirometer use while in bed and mobilize patient as tolerated. 4. Repeat echocardiogram is pending. IMPRESSIONS: 1. Gram-negative sepsis Likely due to to primary urinary tract source of infection with secondary hematogenous spread. Plan to continue antimicrobials as ordered. The patient has been adequately volume resuscitated and remains hemodynamically stable. Accordingly, supplemental fluids can be discontinued from my perspective. 2. Acute kidney injury Most likely prerenal in etiology, given normal renal ultrasound. Anticipate improvement with volume expansion. Continue to monitor urine output. No current indication for renal replacement therapy. 3. Coronary artery disease/chronic atrial fibrillation The patient did have a mild troponin elevation, likely secondary to demand in the setting and #1. Repeat echocardiogram is pending. Continue home medications as indicated. 4. History of lung cancer/depression/diabetes mellitus/GERD/hypertension/hyperlipidemia Complicates care, management, recovery and prognosis. Okay to continue home medications as indicated. This note was generated with SMRx[employer] dictation software. It may contain incorrect words, spelling, and punctuation that were not noted in checking the note before signing. Inpatient E&M: 37838 Init Hosp L3
--- NOTE | 2019-12-03 09:58 | CASEMGMT ---
RN CM Assessment Note Attempted to call patient's room, no answer. Intro role of CM to patient's at home via phone. is able to participate and assist with assessment. Patient is generally independent at home, drives short distances but has some limitations due to Parkinson's and macular degeneration. states he has baseline physical disability but maintains his independence as much as possible. Uses ambulatory DME. Pt has home oxygen at night, and is on RA currently. -Reviewed with that ICU staff tries to make daily phone call to family to update and this is generally after ICU rounds @ 9 am. is aware she can call in and check on patient if she would like later in the day. Presentation: weakness, fatigue, fever 104.5, SOB Diagnosis: Sepsis, UTI PCP: Dr. Hobson Specialists: Dr. Graham, urology; Dr. Davis, neurology; Dr. Garcia, cardiology Insurance: [employer]. Preferred Pharmacy: [facility] Prescription Benefit: yes LNOK: Living Arrangements: Lives with in one story home with 3 steps into home. states pt tries to maintain his independence by completing own ADL's. is available if she is needed to assist on dc. Tranportation: Pt drives short distances. DME: handicap bathroom with bench, oxygen through [employer]. 3L @ night through [employer], rollator, wc. HHC: Discussed with . says she is available for pt, has been managing his medications and does not feel they will need at this time. If HHC is recommended, can discuss with patient. SNF: none Patient DC Goals: Home on dc DC Plan: Home. CM available for discharge planning coordination. Contact CM for any concerns/needs that may arise. Gabi RODRIGUZE RN ACM
[2019-12-03] MEDS: Fenofibrate 145 MG Tablet PO (10:33)
[2019-12-03] MEDS: Rivaroxaban 10 MG Tablet PO (10:33)
[2019-12-03] MEDS: Ferrous Sulfate 325 MG Tablet PO (10:33)
[2019-12-03] MEDS: Metoprolol Tartrate 50 MG Tablet PO (10:33)
[2019-12-03] MEDS: Aspirin E.C. 81 MG Tablet PO (10:33)
[2019-12-03] MEDS: Docusate Sodium 100 MG Capsule PO ×2 (10:33→22:50)
[2019-12-03] MEDS: Digoxin 250 MCG Tablet PO (10:33)
[2019-12-03] MEDS: Losartan Potassium 50 MG Tablet PO ×2 (10:33→22:51)
[2019-12-03] MEDS: Folic Acid 1 MG Tablet PO (10:33)
[2019-12-03] MEDS: 0.9% Normal Saline 1,000 ML 125 ML IV ×2 (10:34→18:47)
[2019-12-03] MEDS: CHLORHEXIDINE GLUC 2% CLOTH 1 EACH TOWELETTE TOPICAL (10:50)
--- NOTE | 2019-12-03 11:01 | PN_ITS ---
Patient Problems: Active and Suspected Problems (Last Reviewed 11/17/19 @ 14:11 by Dagmar Strickland) Sepsis (Acute) Complicated urinary tract infection (Acute) Subjective: Patient was seen and examined today, his temperature is 99.5, white blood cell count is still elevated. Patient has no complaints of any shortness of breath or chest discomfort. Patient's blood pressure has been stable. - Physical Exam Vitals/I&O's: Vital Signs Temp Pulse Resp BP Pulse Ox 99.5 F H 83 31 H 169/51 H 98 12/03/19 09:00 12/03/19 10:33 12/03/19 10:00 12/03/19 10:33 12/03/19 10:00 Oxygen Flow Rate (L/min) 3 Oxygen Delivery Method Room Air Weight: 129.3 kg Body Mass Index (BMI) 39.4 Finger Stick Blood Glucose 121 Intake and Output for Last 24 Hours 12/01/19 12/02/19 12/03/19 23:59 23:59 23:59 Intake Total 2490 / 2490 100 / 100 Output Total 200 / 400 350 / 350 Balance 2290 / 2090 -250 / -250 General: Alert, Oriented x3, Cooperative HEENT: Atraumatic, PERRLA, EOMI, Normocephalic Neck: Supple, Trachea Midline, Thyroid Normal Size and Texture Lungs: Clear to auscultation, Normal air movement, No rhonchi, No wheeze, No rales Cardiovascular: Regular rate, Regular Rhythm, Normal S1, Normal S2, No murmurs, PMI Normal, No rub noted Abdomen: Bowel Sounds Present, Soft, Non Tender, Non-Distended, Obese Extremities: No clubbing, No cyanosis, No edema, Capillary Refill Less than 3 Seconds Skin: No rashes, No breakdown Musculoskeletal: No Tenderness to Palpation of Joints or Extremities Neurological: Cranial nerves II-XII grossly intact, Neuro grossly intact, Sensory exam intact to light touch and pain, Coordination normal Psych/Mental Status: Normal Affect, Appropriate, Alert and oriented to time, place, person, mood and affect Microbiology Past 72 Hours 12/02/19 13:25 Blood Culture (Wb) - Anticubital Right Blood Culture - Preliminary 12/02/19 13:30 Urine Catheter - Catheter Legionella Antigen - Final 12/02/19 13:30 Urine Catheter - Catheter Streptococcus pneumoniae Antigen (M - Final Laboratory Results 12/02/19 13:13: Lactic Acid 1.8 12/02/19 13:15: WBC 17.9 H, RBC 4.13 L, Hgb 12.7 L, Hct 40.0, MCV 96.9 H, MCH 30.8, MCHC 31.8 L, RDW Std Deviation 58.9 H, RDW Coeff of Iram 16.5 H, Plt Count 252, MPV 10.0, Immature Gran % (Auto) 0.700, Neut % (Auto) 89.1 H, Lymph % (Auto) 2.5 L, [place] % (Auto) 7.0, Eos % (Auto) 0.4, Baso % (Auto) 0.3, Absolute Neuts (auto) 15.9 H, Absolute Lymphs (auto) 0.45 L, Nucleated RBC % 0 12/02/19 13:15: PT 17.2 H, INR 1.5, APTT 43.1 H 12/02/19 13:15: Sodium 136, Potassium 3.9, Chloride 99, Carbon Dioxide 31.0, Anion Gap 6, BUN 15, Creatinine 1.36 H, Estim Creat Clear Calc 49.20, Est GFR (MDRD) Af Amer 66, Est GFR (MDRD) Non-Af 54 L, BUN/Creatinine Ratio 11.0, Glucose 136 H, Calcium 9.1, Total Bilirubin 1.00, AST 22, ALT 14 L, Alkaline Phosphatase 72, Troponin I 0.074 H, Total Protein 7.2, Albumin 3.2, Globulin 4.0, Albumin/Globulin Ratio 0.8 L 12/02/19 13:20: COVID-19 (CHARLIE) Cancelled 12/02/19 13:20: COVID-19 (CHARLIE) Not Detected 12/02/19 13:30: Urine Color Straw, Urine Clarity Sl. Cloudy, Urine pH 6.5, Ur Specific [place] 1.015, Urine Protein 100 H, Urine Glucose (UA) Normal, Urine Ketones Negative, Urine Occult Blood 25 H, Urine Nitrite Negative, Urine Bilirubin Negative, Urine Urobilinogen 1 H, Ur Leukocyte Esterase 500 H, Urine RBC 0 SEEN, Urine WBC 10-25 SEEN, Ur Squamous Epith Cells 0-5 SEEN, Urine Bacteria 3+, Urine Mucus 0 SEEN 12/02/19 16:13: POC Glucose 113 H 12/02/19 16:15: Troponin I 0.176 H 12/02/19 16:58: MRSA (PCR) Negative 12/02/19 23:49: POC Glucose 142 H 12/03/19 04:30: Sodium 138, Potassium 3.5, Chloride 102, Carbon Dioxide 29.0, Anion Gap 7, BUN 15, Creatinine 1.32 H, Estim Creat Clear Calc 52.29, Est GFR (MDRD) Af Amer 68, Est GFR (MDRD) Non-Af 56 L, BUN/Creatinine Ratio 11.4, Glucose 137 H, Calcium 8.1 L, Magnesium 1.9 12/03/19 04:30: WBC 19.5 H, RBC 3.70 L, Hgb 11.5 L, Hct 36.1 L, MCV 97.6 H, MCH 31.1, MCHC 31.9 L, RDW Std Deviation 59.7 H, RDW Coeff of Iram 16.7 H, Plt Count 211, MPV 10.1, Immature Gran % (Auto) 0.600, Neut % (Auto) 85.6 H, Lymph % (Auto) 3.8 L, [place] % (Auto) 9.6, Eos % (Auto) 0.2, Baso % (Auto) 0.2, Absolute Neuts (auto) 16.7 H, Absolute Lymphs (auto) 0.74 L, Nucleated RBC % 0, D ifferential Comment SCANNED, Diff Path Review October12/03/19 04:30: Digoxin 1.66 12/03/19 04:30: Phosphorus 2.4 L 12/03/19 04:30: Random Vancomycin 11.5 Current Medications Acetaminophen (Tylenol) 650 mg PO Q6H PRN PRN PRN Reason: Pain Score 1-10/Temp > 100.7 F Last Admin: 12/03/19 04:39 Dose: 650 mg Documented by: Albuterol Sulfate (Ventolin Aerosols) 2.5 mg INHALATION Q2H PRN PRN PRN Reason: SOB/Wheezing Aspirin (Ecotrin) 81 mg PO DAILYCM [facility] Last Admin: 12/03/19 10:33 Dose: 81 mg Documented by: Chlorhexidine Gluconate () 1 each TOPICAL DAILY [facility] Last Admin: 12/03/19 10:50 Dose: 1 each Documented by: Dextrose (D50w Syringe) 0 gm IV X1 PRN; Protocol PRN Reason: Hypoglycemia Digoxin (Lanoxin) 250 mcg PO DAILY [facility] Last Admin: 12/03/19 10:33 Dose: 250 mcg Documented by: Docusate Sodium (Colace) 100 mg PO BID@1200,2200 [facility] Last Admin: 12/03/19 10:33 Dose: 100 mg Documented by: Duloxetine HCl (Cymbalta) 60 mg PO QHS [facility] Last Admin: 12/02/19 20:53 Dose: 60 mg Documented by: Fenofibrate (Tricor) 145 mg PO LUNCH [facility] Last Admin: 12/03/19 10:33 Dose: 145 mg Documented by: Ferrous Sulfate (Ferrous Sulfate) 325 mg PO DAILYCM [facility] Last Admin: 12/03/19 10:33 Dose: 325 mg Documented by: Folic Acid (Folic Acid) 1 mg PO DAILY@1200 [facility] Last Admin: 12/03/19 10:33 Dose: 1 mg Documented by: Gabapentin (Neurontin) 1,200 mg PO QHS [facility] Last Admin: 12/02/19 20:55 Dose: 1,200 mg Documented by: Glucagon () 1 mg IM .X1 PRN PRN Reason: Hypoglycemia Cefepime HCl 2 gm/ Sodium (Chloride) 100 mls @ 200 mls/hr IV Q24 [facility] Last Admin: 12/03/19 10:34 Dose: 200 mls/hr Documented by: Sodium Chloride () 1,000 mls @ 125 mls/hr IV .Q8H [facility] Last Admin: 12/03/19 10:34 Dose: 125 mls/hr Documented by: Insulin Human Lispro (Humalog Leatha (Bkc)) 0 unit SC UD [facility]; Protocol Last Admin: 12/02/19 16:25 Dose: Not Given Documented by: Lactobacillus Acidophilus (Acidophilus) 1 tablet PO DAILY [facility] Last Admin: 12/03/19 10:34 Dose: 1 tablet Documented by: Losartan Potassium (Cozaar) 50 mg PO BID [facility] Last Admin: 12/03/19 10:33 Dose: 50 mg Documented by: Metoprolol Tartrate (Lopressor (Beta Taisha)) 50 mg PO DAILY [facility] Last Admin: 12/03/19 10:33 Dose: 50 mg Documented by: Pantoprazole Sodium (Protonix) 20 mg PO QHS [facility] Last Admin: 12/02/19 20:55 Dose: 20 mg Documented by: Pramipexole Dihydrochloride (Mirapex) 0.5 mg PO TID [facility] Last Admin: 12/03/19 05:59 Dose: 0.5 mg Documented by: Pravastatin Sodium (Pravachol) 40 mg PO QHS [facility] Last Admin: 12/02/19 20:53 Dose: 40 mg Documented by: Rivaroxaban (Xarelto) 10 mg PO DAILY [facility] Last Admin: 12/03/19 10:33 Dose: 10 mg Documented by: Sodium Chloride () 10 - 40 ml IV UD PRN PRN Reason: SALINE FLUSH Last Admin: 12/03/19 04:40 Dose: 10 ml Documented by: Tamsulosin HCl (Flomax) 0.4 mg PO QHS [facility] Last Admin: 12/02/19 20:54 Dose: 0.4 mg Documented by: Medical Necessity - Tobacco Use Smoking Status: Former smoker Assessment/Plan All Active Problems (Last Reviewed 11/17/19 @ 14:11 by Dagmar Strickland) UTI (urinary tract infection) (Acute) Severe sepsis (Acute) Pneumonia (Acute) Sepsis (Acute) Complicated urinary tract infection (Acute) #1 acute sepsis-patient does not have severe sepsis, IV antibiotics will be continued, urine and blood cultures are pending #2 acute kidney injury-patient was placed on IV fluids #3 coronary artery disease #4 acute cystitis #5 class II obesity #6 permanent atrial fibrillation #7 essential hypertension #8 hyperlipidemia Inpatient E&M: 535[address] [facility] Hosp L2
[2019-12-03 11:39] LABS: Pathologist Review Reviewed
[2019-12-03] MEDS: amLODIPine 5 MG Tablet PO (16:02)
[2019-12-03 16:10] LABS: Bedside Glucose 124 mg/dL (70-110)
[2019-12-03] MEDS: DULoxetine Hcl 60 MG Capsule PO (22:50)
[2019-12-03] MEDS: Tamsulosin HCl 0.4 MG Capsule PO (22:51)
[2019-12-03] MEDS: Gabapentin 600 MG Tablet 1200 MG PO (22:52)
[2019-12-03] MEDS: Pravastatin 40 MG Tablet PO (22:53)
[2019-12-03] MEDS: Pantoprazole Sodium 20 MG Tablet PO (22:53)
[2019-12-03 23:06] LABS: Bedside Glucose 98 mg/dL (70-110)
[2019-12-04] VITALS (18 sets, daily range): BP systolic 115–162; BP diastolic 62–91; PULSE 64–120; RESP 19–28; TEMP 36.3–37; O2SAT 95–100
[2019-12-04] MEDS: 0.9% Normal Saline 1,000 ML 125 ML IV ×2 (02:31→10:17)
[2019-12-04] MEDS: Pramipexole Di-HCl 0.5 MG Tablet PO ×3 (05:04→21:21)
--- NOTE | 2019-12-04 05:23 | CPS ---
pt refused cpap, does not like our unit, pt placed on o2 2L tonight
[2019-12-04 06:46] LABS: Bedside Glucose 120 mg/dL (70-110)
[2019-12-04] MEDS: Albuterol 2.5 MG/3 ML VIAL.NEB. INHALATION ×5 (07:44→23:02)
--- NOTE | 2019-12-04 08:45 | PCM.PN.PUL ---
Patient Problems: Active and Suspected Problems (Last Reviewed 11/17/19 @ 14:11 by Dagmar Strickland) Sepsis (Acute) Complicated urinary tract infection (Acute) Subjective: The patient was seen and examined at the bedside this morning. Events from the last 24 hours have been reviewed. The patient is currently afebrile, hemodynamically stable and maintaining appropriate oxygen saturations on 3 L/min via nasal cannula. The patient is currently documented to be overall net +4.5 L for the hospital admission. The patient did refuse to utilize CPAP overnight. Objective: The patient's most recent lab work, culture data and imaging studies have all been personally reviewed. Surface echocardiogram dated June 2019 revealed an ejection fraction of 50%. The RV was moderately dilated with moderate global RV systolic dysfunction. Right ventricular systolic pressure was estimated to be 73 mmHg. Coronavirus PCR was negative. Preliminary blood culture dated December 01 was positive for gram-negative danielle, lactose mixer runner. Urine culture was positive for E. coli. - Physical Exam Vitals/I&O's: Vital Signs Temp Pulse Resp BP Pulse Ox 97.8 F 83 26 H 115/78 96 12/04/19 05:02 12/04/19 07:44 12/04/19 07:44 12/04/19 05:02 12/04/19 07:10 Oxygen Flow Rate (L/min) 3 Oxygen Delivery Method Nasal Cannula Weight: 286 lb 9.615 oz Body Mass Index (BMI) 39.4 Finger Stick Blood Glucose 121 Intake and Output for Last 24 Hours 12/02/19 12/03/19 12/04/19 23:59 23:59 23:59 Intake Total 2490 / 2490 3155.5 / 3155.5 1116.67 / 1116.67 Output Total 200 / 400 1600 / 1600 425 / 425 Balance 2290 / 2090 1555.5 / 1555.5 691.67 / 691.67 General: Alert, No apparent distress HEENT: Atraumatic, Normocephalic Oral: Moist Mucosa, No Gingival or Mucosal Lesions/ Ulcerations Neck: Supple, No Nodes, Trachea Midline Lungs: No rhonchi, No wheeze, No rales, Diminished Cardiovascular: Normal S1, Normal S2, Irregular Rate Abdomen: Bowel Sounds Present, Soft, Non Tender, Obese Extremities: No clubbing, No cyanosis, No edema Skin: No breakdown Musculoskeletal: No Muscle Wasting Lymphatic: No Cervical, Supraclavicular, or Inguinal Adenopathy Neurological: Cranial nerves II-XII grossly intact, Neuro grossly intact Psych/Mental Status: Alert and oriented to time, place, person, mood and affect Labs (Last 48 Hours) 12/02/19 12/02/19 12/02/19 13:13 13:15 13:15 WBC 17.9 H RBC 4.13 L Hgb 12.7 L Hct 40.0 MCV 96.9 H MCH 30.8 MCHC 31.8 L RDW Std Deviation 58.9 H RDW Coeff of Iram 16.5 H Plt Count 252 MPV 10.0 Immature Gran % (Auto) 0.700 Neut % (Auto) 89.1 H Lymph % (Auto) 2.5 L [place] % (Auto) 7.0 Eos % (Auto) 0.4 Baso % (Auto) 0.3 Absolute Neuts (auto) 15.9 H Absolute Lymphs (auto) 0.45 L Nucleated RBC % 0 Differential Comment Diff Path Review PT 17.2 H INR 1.5 APTT 43.1 H Sodium Potassium Chloride Carbon Dioxide Anion Gap BUN Creatinine Estim Creat Clear Calc Est GFR (MDRD) Af Amer Est GFR (MDRD) Non-Af BUN/Creatinine Ratio Glucose Lactic Acid 1.8 Calcium Phosphorus Magnesium Total Bilirubin AST ALT Alkaline Phosphatase Troponin I Total Protein Albumin Globulin Albumin/Globulin Ratio Urine Color Urine Clarity Urine pH Ur Specific [place] Urine Protein Urine Glucose (UA) Urine Ketones Urine Occult Blood Urine Nitrite Urine Bilirubin Urine Urobilinogen Ur Leukocyte Esterase Urine RBC Urine WBC Ur Squamous Epith Cells Urine Bacteria Urine Mucus Random Vancomycin Digoxin COVID-19 (CHARLIE) MRSA (PCR) POC Glucose 12/02/19 12/02/19 12/02/19 13:15 13:20 13:20 WBC RBC Hgb Hct MCV MCH MCHC RDW Std Deviation RDW Coeff of Iram Plt Count MPV Immature Gran % (Auto) Neut % (Auto) Lymph % (Auto) [place] % (Auto) Eos % (Auto) Baso % (Auto) Absolute Neuts (auto) Absolute Lymphs (auto) Nucleated RBC % Differential Comment Diff Path Review PT INR APTT Sodium 136 Potassium 3.9 Chloride 99 Carbon Dioxide 31.0 Anion Gap 6 BUN 15 Creatinine 1.36 H Estim Creat Clear Calc 49.20 Est GFR (MDRD) Af Amer 66 Est GFR (MDRD) Non-Af 54 L BUN/Creatinine Ratio 11.0 Glucose 136 H Lactic Acid Calcium 9.1 Phosphorus Magnesium Total Bilirubin 1.00 AST 22 ALT 14 L Alkaline Phosphatase 72 Troponin I 0.074 H Total Protein 7.2 Albumin 3.2 Globulin 4.0 Albumin/Globulin Ratio 0.8 L Urine Color Urine Clarity Urine pH Ur Specific [place] Urine Protein Urine Glucose (UA) Urine Ketones Urine Occult Blood Urine Nitrite Urine Bilirubin Urine Urobilinogen Ur Leukocyte Esterase Urine RBC Urine WBC Ur Squamous Epith Cells Urine Bacteria Urine Mucus Random Vancomycin Digoxin COVID-19 (CHARLIE) Cancelled Not Detected MRSA (PCR) POC Glucose 12/02/19 12/02/19 12/02/19 13:30 16:13 16:15 WBC RBC Hgb Hct MCV MCH MCHC RDW Std Deviation RDW Coeff of Iram Plt Count MPV Immature Gran % (Auto) Neut % (Auto) Lymph % (Auto) [place] % (Auto) Eos % (Auto) Baso % (Auto) Absolute Neuts (auto) Absolute Lymphs (auto) Nucleated RBC % Differential Comment Diff Path Review PT INR APTT Sodium Potassium Chloride Carbon Dioxide Anion Gap BUN Creatinine Estim Creat Clear Calc Est GFR (MDRD) Af Amer Est GFR (MDRD) Non-Af BUN/Creatinine Ratio Glucose Lactic Acid Calcium Phosphorus Magnesium Total Bilirubin AST ALT Alkaline Phosphatase Troponin I 0.176 H Total Protein Albumin Globulin Albumin/Globulin Ratio Urine Color Straw Urine Clarity Sl. Cloudy Urine pH 6.5 Ur Specific [place] 1.015 Urine Protein 100 H Urine Glucose (UA) Normal Urine Ketones Negative Urine Occult Blood 25 H Urine Nitrite Negative Urine Bilirubin Negative Urine Urobilinogen 1 H Ur Leukocyte Esterase 500 H Urine RBC 0 SEEN Urine WBC 10-25 SEEN Ur Squamous Epith Cells 0-5 SEEN Urine Bacteria 3+ Urine Mucus 0 SEEN Random Vancomycin Digoxin COVID-19 (CHARLIE) MRSA (PCR) POC Glucose 113 H 12/02/19 12/02/19 12/03/19 16:58 23:49 04:30 WBC RBC Hgb Hct MCV MCH MCHC RDW Std Deviation RDW Coeff of Iram Plt Count MPV Immature Gran % (Auto) Neut % (Auto) Lymph % (Auto) [place] % (Auto) Eos % (Auto) Baso % (Auto) Absolute Neuts (auto) Absolute Lymphs (auto) Nucleated RBC % Differential Comment Diff Path Review PT INR APTT Sodium 138 Potassium 3.5 Chloride 102 Carbon Dioxide 29.0 Anion Gap 7 BUN 15 Creatinine 1.32 H Estim Creat Clear Calc 52.29 Est GFR (MDRD) Af Amer 68 Est GFR (MDRD) Non-Af 56 L BUN/Creatinine Ratio 11.4 Glucose 137 H Lactic Acid Calcium 8.1 L Phosphorus Magnesium 1.9 Total Bilirubin AST ALT Alkaline Phosphatase Troponin I Total Protein Albumin Globulin Albumin/Globulin Ratio Urine Color Urine Clarity Urine pH Ur Specific [place] Urine Protein Urine Glucose (UA) Urine Ketones Urine Occult Blood Urine Nitrite Urine Bilirubin Urine Urobilinogen Ur Leukocyte Esterase Urine RBC Urine WBC Ur Squamous Epith Cells Urine Bacteria Urine Mucus Random Vancomycin Digoxin COVID-19 (CHARLIE) MRSA (PCR) Negative POC Glucose 142 H 12/03/19 12/03/19 12/03/19 04:30 04:30 04:30 WBC 19.5 H RBC 3.70 L Hgb 11.5 L Hct 36.1 L MCV 97.6 H MCH 31.1 MCHC 31.9 L RDW Std Deviation 59.7 H RDW Coeff of Iram 16.7 H Plt Count 211 MPV 10.1 Immature Gran % (Auto) 0.600 Neut % (Auto) 85.6 H Lymph % (Auto) 3.8 L [place] % (Auto) 9.6 Eos % (Auto) 0.2 Baso % (Auto) 0.2 Absolute Neuts (auto) 16.7 H Absolute Lymphs (auto) 0.74 L Nucleated RBC % 0 Differential Comment SCANNED Diff Path Review Reviewed PT INR APTT Sodium Potassium Chloride Carbon Dioxide Anion Gap BUN Creatinine Estim Creat Clear Calc Est GFR (MDRD) Af Amer Est GFR (MDRD) Non-Af BUN/Creatinine Ratio Glucose Lactic Acid Calcium Phosphorus 2.4 L Magnesium Total Bilirubin AST ALT Alkaline Phosphatase Troponin I Total Protein Albumin Globulin Albumin/Globulin Ratio Urine Color Urine Clarity Urine pH Ur Specific [place] Urine Protein Urine Glucose (UA) Urine Ketones Urine Occult Blood Urine Nitrite Urine Bilirubin Urine Urobilinogen Ur Leukocyte Esterase Urine RBC Urine WBC Ur Squamous Epith Cells Urine Bacteria Urine Mucus Random Vancomycin Digoxin 1.66 COVID-19 (CHARLIE) MRSA (PCR) POC Glucose 12/03/19 12/03/19 12/03/19 04:30 16:00 22:41 WBC RBC Hgb Hct MCV MCH MCHC RDW Std Deviation RDW Coeff of Iram Plt Count MPV Immature Gran % (Auto) Neut % (Auto) Lymph % (Auto) [place] % (Auto) Eos % (Auto) Baso % (Auto) Absolute Neuts (auto) Absolute Lymphs (auto) Nucleated RBC % Differential Comment Diff Path Review PT INR APTT Sodium Potassium Chloride Carbon Dioxide Anion Gap BUN Creatinine Estim Creat Clear Calc Est GFR (MDRD) Af Amer Est GFR (MDRD) Non-Af BUN/Creatinine Ratio Glucose Lactic Acid Calcium Phosphorus Magnesium Total Bilirubin AST ALT Alkaline Phosphatase Troponin I Total Protein Albumin Globulin Albumin/Globulin Ratio Urine Color Urine Clarity Urine pH Ur Specific [place] Urine Protein Urine Glucose (UA) Urine Ketones Urine Occult Blood Urine Nitrite Urine Bilirubin Urine Urobilinogen Ur Leukocyte Esterase Urine RBC Urine WBC Ur Squamous Epith Cells Urine Bacteria Urine Mucus Random Vancomycin 11.5 Digoxin COVID-19 (CHARLIE) MRSA (PCR) POC Glucose 124 H 98 12/04/19 06:28 WBC RBC Hgb Hct MCV MCH MCHC RDW Std Deviation RDW Coeff of Iram Plt Count MPV Immature Gran % (Auto) Neut % (Auto) Lymph % (Auto) [place] % (Auto) Eos % (Auto) Baso % (Auto) Absolute Neuts (auto) Absolute Lymphs (auto) Nucleated RBC % Differential Comment Diff Path Review PT INR APTT Sodium Potassium Chloride Carbon Dioxide Anion Gap BUN Creatinine Estim Creat Clear Calc Est GFR (MDRD) Af Amer Est GFR (MDRD) Non-Af BUN/Creatinine Ratio Glucose Lactic Acid Calcium Phosphorus Magnesium Total Bilirubin AST ALT Alkaline Phosphatase Troponin I Total Protein Albumin Globulin Albumin/Globulin Ratio Urine Color Urine Clarity Urine pH Ur Specific [place] Urine Protein Urine Glucose (UA) Urine Ketones Urine Occult Blood Urine Nitrite Urine Bilirubin Urine Urobilinogen Ur Leukocyte Esterase Urine RBC Urine WBC Ur Squamous Epith Cells Urine Bacteria Urine Mucus Random Vancomycin Digoxin COVID-19 (CHARLIE) MRSA (PCR) POC Glucose 120 H Microbiology 12/02/19 13:30 Urine, Catheterized Urine Culture - Final Presumptive E. 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 Electronically Signed: Marino Danielson MD at 15:15 EDT , Service support , Renal Ultrasound 12/02/19 19:16 IMPRESSION: No definite acute or significant abnormality seen of the kidneys. Grossly stable right adrenal mass. Electronically Signed: Marino Danielson MD at 20:10 EDT , Service support , Current Medications Acetaminophen (Tylenol) 650 mg PO Q6H PRN PRN PRN Reason: Pain Score 1-10/Temp > 100.7 F Last Admin: 12/03/19 22:49 Dose: 650 mg Documented by: Albuterol Sulfate (Ventolin Aerosols) 2.5 mg INHALATION Q2H PRN PRN PRN Reason: SOB/Wheezing Last Admin: 12/04/19 07:44 Dose: 2.5 mg Documented by: Amlodipine Besylate (Norvasc) 5 mg PO DAILY [facility] Last Admin: 12/03/19 10:33 Dose: 81 mg Documented by: Chlorhexidine Gluconate () 1 each TOPICAL DAILY [facility] Last Admin: 12/03/19 10:50 Dose: 1 each Documented by: Dextrose (D50w Syringe) 0 gm IV X1 PRN; Protocol PRN Reason: Hypoglycemia Digoxin (Lanoxin) 250 mcg PO DAILY [facility] Last Admin: 12/03/19 10:33 Dose: 250 mcg Documented by: Docusate Sodium (Colace) 100 mg PO BID@1200,2200 [facility] Last Admin: 12/03/19 22:50 Dose: 100 mg Documented by: Duloxetine HCl (Cymbalta) 60 mg PO QHS [facility] Last Admin: 12/03/19 22:50 Dose: 60 mg Documented by: Fenofibrate (Tricor) 145 mg PO LUNCH [facility] Last Admin: 12/03/19 10:33 Dose: 145 mg Documented by: Ferrous Sulfate (Ferrous Sulfate) [facility] Last Admin: 12/03/19 10:33 Dose: 325 mg Documented by: Folic Acid (Folic Acid) 1 mg PO DAILY@1200 [facility] Last Admin: 12/03/19 10:33 Dose: 1 mg Documented by: Gabapentin (Neurontin) 1,200 mg PO QHS [facility] Last Admin: 12/03/19 22:52 Dose: 1,200 mg Documented by: Glucagon () 1 mg IM .X1 PRN PRN Reason: Hypoglycemia Sodium Chloride () 1,000 mls @ 125 mls/hr IV .Q8H [facility] Last Admin: 12/04/19 02:31 Dose: 125 mls/hr Documented by: Cefepime HCl 2 gm/ Sodium (Chloride) 100 mls @ 200 mls/hr IV Q12 [facility] Last Infusion: 12/03/19 23:30 Dose: Infused Documented by: Insulin Human Lispro (Humalog Kwikpen (Bkc)) 0 unit SC UD [facility]; Protocol Last Admin: 12/03/19 16:02 Dose: Not Given Documented by: Lactobacillus Acidophilus (Acidophilus) 1 tablet PO DAILY [facility] Last Admin: 12/03/19 10:34 Dose: 1 tablet Documented by: Losartan Potassium (Cozaar) 50 mg PO BID [facility] Last Admin: 12/03/19 22:51 Dose: 50 mg Documented by: Metoprolol Tartrate (Lopressor (Beta Taisha)) 50 mg PO DAILY [facility] Last Admin: 12/03/19 10:33 Dose: 50 mg Documented by: Pantoprazole Sodium (Protonix) 20 mg PO QHS [facility] Last Admin: 12/03/19 22:53 Dose: 20 mg Documented by: Pramipexole Dihydrochloride (Mirapex) 0.5 mg PO TID [facility] Last Admin: 12/04/19 05:04 Dose: 0.5 mg Documented by: Pravastatin Sodium (Pravachol) 40 mg PO QHS [facility] Last Admin: 12/03/19 22:53 Dose: 40 mg Documented by: Rivaroxaban (Xarelto) 10 mg PO DAILY [facility] Last Admin: 12/03/19 10:33 Dose: 10 mg Documented by: Sodium Chloride () 10 - 40 ml IV UD PRN PRN Reason: SALINE FLUSH Last Admin: 12/03/19 04:40 Dose: 10 ml Documented by: Tamsulosin HCl (Flomax) 0.4 mg PO QHS [facility] Last Admin: 12/03/19 22:51 Dose: 0.4 mg Documented by: Medical Necessity - Tobacco Use Smoking Status: Former smoker Assessment/Plan All Active Problems (Last Reviewed 11/17/19 @ 14:11 by Dagmar Strickland) UTI (urinary tract infection) (Acute) Severe sepsis (Acute) Pneumonia (Acute) Sepsis (Acute) Complicated urinary tract infection (Acute) RECOMMENDATIONS: 1. Continue broad-spectrum antimicrobials. 2. Continue scheduled bronchodilator therapy. 3. Wean supplemental oxygen as tolerated. 4. Encourage incentive spirometer use while in bed and mobilize patient as tolerated. 5. Will sign off from a critical care perspective. Please call with any additional questions. IMPRESSIONS: 1. Gram-negative sepsis Likely due to to primary urinary tract source of infection with secondary hematogenous spread. Plan to continue antimicrobials as ordered. The patient has been adequately volume resuscitated and remains hemodynamically stable. 2. Acute kidney injury Resolved. Most likely prerenal in etiology, given normal renal ultrasound. Continue to monitor urine output. No current indication for renal replacement therapy. 3. Coronary artery disease/chronic atrial fibrillation The patient did have a mild troponin elevation, likely secondary to demand in the setting and #1. Continue home medications as indicated. 4. History of lung cancer/depression/diabetes mellitus/GERD/hypertension/hyperlipidemia Complicates care, management, recovery and prognosis. Okay to continue home medications as indicated. This note was generated with [employer] dictation software. It may contain incorrect words, spelling, and punctuation that were not noted in checking the note before signing. Inpatient E&M: 67334 Subs Hosp L2
[2019-12-04 09:46] LABS: Absolute Lymphocyte Count 0.61 X10^3/uL (0.83-4.51); Absolute Neutrophil Count 9.7 X10^3/uL (2.0-7.7); Basophil# 0.04 X10^3/uL; Basophil% 0.4 % (0-1); Eosinophil# 0.19 X10^3/uL; Eosinophils% 1.7 % (0-5); Hemoglobin 11.3 g/dL (13.0-16.5); Lymphocyte # 0.61 X10^3/ul (4.0); Lymphocyte % 5.4 % (19-41); Mean Corp Hgb Conc 30.5 g/dL (32-36); Mean Corpuscular Hgb 30.5 pg (27.0-32.0); Mean Platelet Vol. 10.5 fl (6.2-12.0); Monocyte# 0.82 X10^3/uL; Monocyte% 7.2 % (0-10); NRBC Flagged by Analyzer 0 % (0-5); Neutrophil # 9.66 X10^3/uL (2.7-7.7); Neutrophil % 84.9 % (47-70); Platelet Count 178 K/mm3 (150-450); RBC Distribution Width CV 16.2 % (11.6-14.6); RBC Distribution Width SD 59.7 fl (35.1-43.9); White Blood Count 11.4 K/mm3 (4.4-11.0)
[2019-12-04] MEDS: Metoprolol Tartrate 50 MG Tablet PO (10:03)
[2019-12-04] MEDS: Ferrous Sulfate 325 MG Tablet PO (10:03)
[2019-12-04] MEDS: Digoxin 250 MCG Tablet PO (10:03)
[2019-12-04] MEDS: Aspirin E.C. 81 MG Tablet PO (10:03)
[2019-12-04] MEDS: Losartan Potassium 50 MG Tablet PO ×2 (10:03→21:21)
[2019-12-04] MEDS: Rivaroxaban 10 MG Tablet PO (10:06)
[2019-12-04] MEDS: amLODIPine 5 MG Tablet PO (10:14)
[2019-12-04] MEDS: Fenofibrate 145 MG Tablet PO (11:05)
[2019-12-04] MEDS: Folic Acid 1 MG Tablet PO (11:05)
[2019-12-04] MEDS: Docusate Sodium 100 MG Capsule PO ×2 (11:05→21:21)
[2019-12-04 11:30] LABS: Bedside Glucose 155 mg/dL (70-110)
[2019-12-04 16:46] LABS: Bedside Glucose 118 mg/dL (70-110)
--- NOTE | 2019-12-04 17:09 | PCM.PROGNOTE ---
Patient Problems: Active and Suspected Problems (Last Reviewed 11/17/19 @ 14:11 by Dagmar Strickland) Sepsis (Acute) Complicated urinary tract infection (Acute) Subjective: In and examined today, urine culture resulted positive for E. coli, patient's blood culture resulted today showing a gram-negative lactose billing specialist, patient's white blood cell count is still slightly elevated. Patient stated he ran a temperature last night and felt terrible. Patient states he feels better today. I changed patient's antibiotic coverage today to Rocephin. Objective: General: Alert, Oriented x3, Cooperative HEENT: Atraumatic, PERRLA, EOMI, Normocephalic Neck: Supple, Trachea Midline, Thyroid Normal Size and Texture Lungs: Clear to auscultation, Normal air movement, No rhonchi, No wheeze, No rales Cardiovascular: Irregular rate, irregular Rhythm, Normal S1, Normal S2, No murmurs, PMI Normal, No rub noted Abdomen: Bowel Sounds Present, Soft, Non Tender, Non-Distended, Obese Extremities: No clubbing, No cyanosis, No edema, Capillary Refill Less than 3 Seconds Skin: No rashes, No breakdown Musculoskeletal: No Tenderness to Palpation of Joints or Extremities Neurological: Cranial nerves II-XII grossly intact, Neuro grossly intact, Sensory exam intact to light touch and pain, Coordination normal Psych/Mental Status: Normal Affect, Appropriate, Alert and oriented to time, place, person, mood and affect - Physical Exam Vitals/I&O's: Vital Signs Temp Pulse Resp BP Pulse Ox 98.3 F 74 20 H 146/91 H 98 12/04/19 16:09 12/04/19 16:09 12/04/19 16:09 12/04/19 16:09 12/04/19 16:09 Oxygen Flow Rate (L/min) 2 Oxygen Delivery Method Nasal Cannula Weight: 130 kg Body Mass Index (BMI) 39.4 Finger Stick Blood Glucose 121 Intake and Output for Last 24 Hours 12/02/19 12/03/19 12/04/19 23:59 23:59 23:59 Intake Total 2490 / 2490 3155.5 / 3155.5 2539.58 / 2539.58 Output Total 200 / 400 1600 / 1600 775 / 775 Balance 2290 / 2090 1555.5 / 1555.5 1764.58 / 1764.58 Microbiology Past 72 Hours 12/02/19 13:15 Blood Culture (Wb) - Anticubital Left Blood Culture - Preliminary No growth in 48 hours. 12/02/19 13:30 Urine, Catheterized Urine Culture - Final Presumptive E. coli 12/02/19 13:25 Blood Culture (Wb) - Anticubital Right Blood Culture - Preliminary GNR lactose billing specialist 12/02/19 13:30 Urine Catheter - Catheter Legionella Antigen - Final 12/02/19 13:30 Urine Catheter - Catheter Streptococcus pneumoniae Antigen (M - Final Laboratory Results 12/03/19 22:41: POC Glucose 98 12/04/19 06:28: POC Glucose 120 H 12/04/19 09:30: WBC 11.4 H, RBC 3.70 L, Hgb 11.3 L, Hct 37.0 L, MCV 100.0 H, MCH 30.5, MCHC 30.5 L, RDW Std Deviation 59.7 H, RDW Coeff of Iram 16.2 H, Plt Count 178, MPV 10.5, Immature Gran % (Auto) 0.400, Neut % (Auto) 84.9 H, Lymph % (Auto) 5.4 L, [facility] % (Auto) 7.2, Eos % (Auto) 1.7, Baso % (Auto) 0.4, Absolute Neuts (auto) 9.7 H, Absolute Lymphs (auto) 0.61 L, Nucleated RBC % 0 12/04/19 11:02: POC Glucose 155 H 12/04/19 16:25: POC Glucose 118 H Current Medications Acetaminophen (Tylenol) 650 mg PO Q6H PRN PRN PRN Reason: Pain Score 1-10/Temp > 100.7 F Last Admin: 12/03/19 22:49 Dose: 650 mg Documented by: Albuterol Sulfate (Ventolin Aerosols) 2.5 mg INHALATION Q2H PRN PRN PRN Reason: SOB/Wheezing Last Admin: 12/04/19 15:19 Dose: 2.5 mg Documented by: Amlodipine Besylate (Norvasc) 5 mg PO DAILY [facility] Last Admin: 12/04/19 10:14 Dose: 5 mg Documented by: [facility] Last Admin: 12/04/19 10:03 Dose: 81 mg Documented by: Chlorhexidine Gluconate () 1 each TOPICAL DAILY [facility] Last Admin: 12/04/19 10:00 Dose: Not Given Documented by: Dextrose (D50w Syringe) 0 gm IV X1 PRN; Protocol PRN Reason: Hypoglycemia Digoxin (Lanoxin) 250 mcg PO DAILY [facility] Last Admin: 12/04/19 10:03 Dose: 250 mcg Documented by: Docusate Sodium (Colace) 100 mg PO BID@1200,2200 [facility] Last Admin: 12/04/19 11:05 Dose: 100 mg Documented by: Duloxetine HCl (Cymbalta) 60 mg PO QHS [facility] Last Admin: 12/03/19 22:50 Dose: 60 mg Documented by: Fenofibrate (Tricor) 145 mg PO LUNCH [facility] Last Admin: 12/04/19 11:05 Dose: 145 mg Documented by: Ferrous Sulfate (Ferrous Sulfate) 325 mg PO DAILYCM [facility] Last Admin: 12/04/19 10:03 Dose: 325 mg Documented by: Folic Acid (Folic Acid) 1 mg PO DAILY@1200 [facility] Last Admin: 12/04/19 11:05 Dose: 1 mg Documented by: Gabapentin (Neurontin) 1,200 mg PO QHS [facility] Last Admin: 12/03/19 22:52 Dose: 1,200 mg Documented by: Glucagon () 1 mg IM .X1 PRN PRN Reason: Hypoglycemia Sodium Chloride () 1,000 mls @ 125 mls/hr IV .Q8H [facility] Last Admin: 12/04/19 16:27 Dose: Not Given Documented by: Ceftriaxone Sodium (Rocephin) 1 gm in 50 mls @ 100 mls/hr IV Q24 [facility] Insulin Human Lispro (Humalog Kwikpen (Bkc)) 0 unit SC [facility]; Protocol Last Admin: 12/04/19 16:26 Dose: Not Given Documented by: Lactobacillus Acidophilus (Acidophilus) 1 tablet PO DAILY [facility] Last Admin: 12/04/19 10:03 Dose: 1 tablet Documented by: Losartan Potassium (Cozaar) 50 mg PO BID [facility] Last Admin: 12/04/19 10:03 Dose: 50 mg Documented by: Metoprolol Tartrate (Lopressor (Beta Taisha)) 50 mg PO DAILY [facility] Last Admin: 12/04/19 10:03 Dose: 50 mg Documented by: Pantoprazole Sodium (Protonix) 20 mg PO QHS [facility] Last Admin: 12/03/19 22:53 Dose: 20 mg Documented by: Pramipexole Dihydrochloride (Mirapex) 0.5 mg PO TID [facility] Last Admin: 12/04/19 13:07 Dose: 0.5 mg Documented by: Pravastatin Sodium (Pravachol) 40 mg PO QHS [facility] Last Admin: 12/03/19 22:53 Dose: 40 mg Documented by: Rivaroxaban (Xarelto) 10 mg PO DAILY [facility] Last Admin: 12/04/19 10:06 Dose: 10 mg Documented by: Sodium Chloride () 10 - 40 ml IV UD PRN PRN Reason: SALINE FLUSH Last Admin: 12/03/19 04:40 Dose: 10 ml Documented by: Tamsulosin HCl (Flomax) 0.4 mg PO QHS [facility] Last Admin: 12/03/19 22:51 Dose: 0.4 mg Documented by: Medical Necessity - Tobacco Use Smoking Status: Former smoker Assessment/Plan All Active Problems (Last Reviewed 11/17/19 @ 14:11 by Dagmar Strickland) UTI (urinary tract infection) (Acute) Severe sepsis (Acute) Pneumonia (Acute) Sepsis (Acute) Complicated urinary tract infection (Acute) #1 acute sepsis-secondary to E. coli, again antibiotics were changed to Rocephin #2 acute kidney injury-patient's IV fluids will be decreased, BMP will be rechecked tomorrow as well as a CBC #3 coronary artery disease #4 acute cystitis #5 class II obesity #6 permanent atrial fibrillation #7 essential hypertension #8 hyperlipidemia Inpatient E&M: 74402 [facility] Hosp L2
[2019-12-04] MEDS: 0.9% Normal Saline 1,000 ML 75 ML IV (18:14)
[2019-12-04] MEDS: Pravastatin 40 MG Tablet PO (21:20)
[2019-12-04] MEDS: Acetaminophen 325 MG Tablet 650 MG PO (21:21)
[2019-12-04] MEDS: Gabapentin 600 MG Tablet 1200 MG PO (21:21)
[2019-12-04] MEDS: DULoxetine Hcl 60 MG Capsule PO (21:21)
[2019-12-04] MEDS: Tamsulosin HCl 0.4 MG Capsule PO (21:21)
[2019-12-04] MEDS: Pantoprazole Sodium 20 MG Tablet PO (21:22)
[2019-12-04 21:41] LABS: Bedside Glucose 151 mg/dL (70-110)
--- NOTE | 2019-12-04 23:00 | NURSING ---
PATIENT GOT UP TO BATHROOM, GOT WHEEZING AND SHORT OF BREATH. 97% ON 2LNC, PATIENT SWEATING STATES GOT LIKE THIS LAST NIGHT BUT FELT WORSE LAST NIGHT. NO TEMP NOTED. GOT PATIENT BACK TO BED CALLED FOR BREATHING TREATMENT, LUNGS WHEEZES NO CRACKLES HEARD. PATIENT STATES HE FEELS BETTER AND NOT SOB AT THIS TIME.
[2019-12-05] VITALS (7 sets, daily range): BP systolic 134–145; BP diastolic 48–66; PULSE 69–89; RESP 16–30; TEMP 36.6–36.7; O2SAT 95–97
[2019-12-05] MEDS: 0.9% Normal Saline 1,000 ML 75 ML IV (05:35)
[2019-12-05] MEDS: Pramipexole Di-HCl 0.5 MG Tablet PO ×2 (05:35→14:24)
[2019-12-05 05:51] LABS: Bedside Glucose 118 mg/dL (70-110)
[2019-12-05 06:07] LABS: Absolute Lymphocyte Count 0.52 X10^3/uL (0.83-4.51); Absolute Neutrophil Count 7.4 X10^3/uL (2.0-7.7); Basophil# 0.05 X10^3/uL; Basophil% 0.6 % (0-1); Eosinophil# 0.15 X10^3/uL; Eosinophils% 1.7 % (0-5); Hematocrit 34.3 % (40-54); Hemoglobin 10.7 g/dL (13.0-16.5); Lymphocyte # 0.52 X10^3/ul (4.0); Lymphocyte % 5.8 % (19-41); Mean Corp Hgb Conc 31.2 g/dL (32-36); Mean Corpuscular Hgb 30.7 pg (27.0-32.0); Mean Corpuscular Volume 98.3 fL (80-94); Mean Platelet Vol. 10.3 fl (6.2-12.0); Monocyte# 0.79 X10^3/uL; Monocyte% 8.8 % (0-10); NRBC Flagged by Analyzer 0 % (0-5); Neutrophil # 7.43 X10^3/uL (2.7-7.7); Neutrophil % 82.7 % (47-70); POSITIVE DIFFERENTIAL YES; Platelet Count 180 K/mm3 (150-450); RBC Distribution Width CV 16.3 % (11.6-14.6); RBC Distribution Width SD 58.2 fl (35.1-43.9); Red Blood Count 3.49 M/mm3 (4.6-6.2)
[2019-12-05 06:39] LABS: Differential Indicated SCAN CRITERIA MET
[2019-12-05] MEDS: Albuterol 2.5 MG/3 ML VIAL.NEB. INHALATION ×2 (06:57→11:18)
[2019-12-05 07:00] LABS: Differential Comment SCANNED
[2019-12-05 07:02] LABS: Anion Gap 6 (5-15); BUN 11 mg/dL (7-18); BUN/Creat Ratio 13.3 RATIO (10-20); Calcium,Total 8.2 mg/dL (8.5-10.1); Chloride 108 mmol/L (98-107); Creatinine, Serum 0.83 mg/dL (0.70-1.30); EST Glomerular Filtration Rate 96 mL/min (>60); Est Glom Filt Rate - Afr Amer 117 mL/min (>60); Estimated Creatinine Clearance 83.16 ml/min; Glucose 121 mg/dL (74-106); Potassium 3.5 mmol/L (3.5-5.1); Sodium Level 140 mmol/L (136-145)
[2019-12-05] MEDS: Metoprolol Tartrate 50 MG Tablet PO (09:41)
[2019-12-05] MEDS: Ferrous Sulfate 325 MG Tablet PO (09:41)
[2019-12-05] MEDS: Losartan Potassium 50 MG Tablet PO (09:42)
[2019-12-05] MEDS: Digoxin 250 MCG Tablet PO (09:44)
[2019-12-05] MEDS: Rivaroxaban 10 MG Tablet PO (09:45)
[2019-12-05] MEDS: Aspirin E.C. 81 MG Tablet PO (09:45)
[2019-12-05] MEDS: amLODIPine 5 MG Tablet PO (09:46)
[2019-12-05] MEDS: Ceftriaxone 1 GM/50 ML BAG IV (09:50)
[2019-12-05] MEDS: 0.9% Saline Lock 10 ML Syringe IV (09:50)
[2019-12-05] MEDS: Docusate Sodium 100 MG Capsule PO (11:59)
[2019-12-05] MEDS: Fenofibrate 145 MG Tablet PO (11:59)
[2019-12-05] MEDS: Folic Acid 1 MG Tablet PO (11:59)
--- NOTE | 2019-12-05 12:33 | PCM.DC ---
- Discharge Diagnoses Current Active Problems: Current Active and Chronic Problems (Last Reviewed 11/17/19 @ 14:11 by Dagmar Strickland) Sepsis (Acute) Complicated urinary tract infection (Acute) You will use the following diet at home:: No restrictions Your food should be the consistency of: Regular Your liquids should be the consistency of: Regular/Thin Discharge Activity: Return to Normal Activity Weight Bearing Status: Full weight bearing Allergies/Adverse Reactions: Allergies No Known Allergies Allergy (Verified 12/02/19 12:46) Medications to take at Discharge Folic Acid 1 mg PO DAILY@1200 05/06/13 Duloxetine HCl 60 mg PO QHS 12/04/16 Pramipexole Di-HCl [Mirapex] 0.5 mg PO TID 12/04/16 aspirin 81 mg tablet,delayed release 81 mg PO DAILY 10/06/17 docusate sodium 100 mg capsule 100 mg PO BID cap 10/20/17 gabapentin 600 mg tablet 1,200 mg PO QHS tab 10/20/17 fenofibrate nanocrystallized 145 mg tablet 145 mg PO LUNCH #90 tab 11/27/18 Ferrous Sulfate [Iron] 65 mg PO DAILY 02/01/19 cholecalciferol (vitamin D3) 125 mcg (5,000 unit) capsule 5,000 unit PO DAILY 03/30/19 Lactobacillus Acidophilus [Acidophilus] 1 cap PO DAILY 07/12/19 Metformin HCl [Metformin HCl ER] 500 mg PO DAILY PRN PRN 07/12/19 Tamsulosin HCl [Flomax] 0.4 mg PO QHS 07/12/19 Acetaminophen [Tylenol Extra Strength] 500 mg PO DAILY PRN PRN 09/03/19 Digoxin 250 mcg PO DAILY 09/03/19 Losartan Potassium [Cozaar] 50 mg PO BID 09/03/19 Omeprazole [Prilosec] 20 mg PO QHS 09/03/19 Pravastatin Sodium 40 mg PO QHS 09/03/19 Vit A/Vit C/Vit E/Zinc/Copper [Preservision Areds Tablet] 1 ea PO BID 09/03/19 rivaroxaban 10 mg tablet 10 mg PO DAILY #90 tab 11/15/19 Metoprolol Tartrate [Lopressor (beta zita)] 50 mg PO DAILY 11/17/19 Amlodipine [Norvasc] 5 mg PO DAILY #30 tab 12/05/19 Cefdinir [Omnicef [equiv]] 300 mg PO BID #14 cap 12/05/19 Furosemide 40 mg PO DAILY #180 tab 12/05/19 Potassium Chloride [Klor-Con 10] 20 meq PO DAILY@1200 #0 12/05/19 The following prescriptions were given: Amlodipine [Norvasc] 5 mg PO DAILY #30 tab Transmission Status: Pending to [facility] Cefdinir [Omnicef [equiv]] 300 mg PO BID #14 cap Transmission Status: Pending to [facility] Primary Care Physician: Fany Hosbon DO [Primary Care Provider] - Please follow up with your Primary Care Physician in: in 7-10 days Test Results: Test results from this visit will be discussed in further detail at your follow-up appointment, if applicable.
--- NOTE | 2019-12-06 08:40 | DS.PCM_ITS ---
Discharge Date and Diagnosis Date of Admission: 12/02/19 Date of Discharge: 12/05/19 - Primary Discharge Diagnosis Acute Problems: #1 acute sepsis-secondary to E. coli, #2 acute kidney injury #3 coronary artery disease #4 acute cystitis #5 class II obesity #6 permanent atrial fibrillation #7 essential hypertension #8 hyperlipidemia #9 inconsequential elevation of troponin - Secondary Discharge Diagnosis Chronic Problems: Chronic Problems (Last Reviewed 11/17/19 @ 14:11 by Dagmar Strickland) Status post insertion of iliac artery stent (Chronic ~08/04/12) Bilateral iliac artery stents 08/04/12 Iron deficiency anemia due to chronic blood loss (Chronic) Gastric AVMs, September 2017 Chronic atrial fibrillation (Chronic) History of cardioversion (Chronic 12/2016) Secondary pulmonary arterial hypertension (Chronic) Atherosclerosis of coronary artery of [place] heart without angina pectoris (Chronic) CABG x 2 HERRERA-LAD, SVG-OM 02/14/2006 [id number] anastomosis-LAD w/ Taxus 2.75 x 8 mm and POBA-PDA 12/23/2006 H/O coronary artery bypass surgery (Chronic 02/14/06) CABG x 2 HERRERA-LAD, SVG-OM 02/14/[address] Fei Castillo, [facility] 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 (Chronic) GERD (gastroesophageal reflux disease) (Chronic) HEBER (obstructive sleep apnea) (Chronic) Benign essential hypertension (Chronic) Hospital Course and Treatment Operations: None Procedures: None Summary of Care Provided: The patient is a 74 year old M was seen in the emergency room at [facility] with a chief complaint of weakness, fatigue, and fever. He also complained of frequent urination. Work-up in the emergency room included labs which showed an elevated white count of 17.9, lactic acid was 1.8, urinalysis indicated a urinary tract infection. Patient was initially admitted for severe sepsis-this examiner did not feel he met criteria for severe sepsis however but was septic. He was treated with IV antibiotics and transferred to PCU. Urine culture grew out E. coli, his blood culture was also positive for E. coli. Patient improved steadily in the hospital. On 12/05/2019, patient was seen and examined: On examination he appeared in good health and spirits. Vital signs as documented. Skin warm and dry and without overt rashes. Neck without JVD, neck was supple, trachea midline, thyroid was no rmal. Lungs clear bilaterally, normal air movement was noted. Heart exam notable for irregular rhythm, normal sounds and absence of murmurs, rubs or gallops. Abdomen unremarkable and without evidence of organomegaly, masses, or abdominal aortic enlargement. Bowel sounds are present, abdomen is not distended. Extremities nonedematous, no cyanosis was noted, no clubbing was noted. Neuro: Cranial nerves II through XII are grossly intact, no focal motor deficits were noted, sensation to light touch and pinprick intact, motor exam 5/5 throughout. Psych: Patient is alert and oriented x3, he does not appear anxious or depressed, he does not appear agitated. Patient was discharged home in stable condition on 12/05/2019. - Physical Exam Vitals/I&O's: Vital Signs Temp Pulse Resp BP Pulse Ox 98.1 F 78 24 H 134/66 H 95 12/05/19 09:35 12/05/19 11:18 12/05/19 11:18 12/05/19 09:35 12/05/19 09:35 Oxygen Flow Rate (L/min) 1.5 Oxygen Delivery Method Room Air Weight: 131.8 kg Body Mass Index (BMI) 39.4 Finger Stick Blood Glucose 121 Intake and Output for Last 24 Hours 12/04/19 12/05/19 12/06/19 23:59 23:59 23:59 Intake Total 4066.66 / 4066.66 1257.50 / 1257.50 Output Total 1550 / 1550 600 / 600 Balance 2516.66 / 2516.66 657.50 / 657.50 Microbiology Past 72 Hours 12/02/19 13:25 Blood Culture (Wb) - Anticubital Right Blood Culture - Preliminary Escherichia coli 12/02/19 13:15 Blood Culture (Wb) - Anticubital Left Blood Culture - Preliminary No growth in 48 hours. 12/02/19 13:30 Urine, Catheterized Urine Culture - Final Presumptive E. coli Discharge Activity: Return to Normal Activity Weight Bearing Status: Full weight bearing Home Medications: Medications to take at Discharge Folic Acid 1 mg PO DAILY@1200 05/06/13 Duloxetine HCl 60 mg PO QHS 12/04/16 Pramipexole Di-HCl [Mirapex] 0.5 mg PO TID 12/04/16 aspirin 81 mg tablet,delayed release 81 mg PO DAILY 10/06/17 docusate sodium 100 mg capsule 100 mg PO BID cap 10/20/17 gabapentin 600 mg tablet 1,200 mg PO QHS tab 10/20/17 fenofibrate nanocrystallized 145 mg tablet 145 mg PO LUNCH #90 tab 11/27/18 Ferrous Sulfate [Iron] 65 mg PO DAILY 02/01/19 cholecalciferol (vitamin D3) 125 mcg (5,000 unit) capsule 5,000 unit PO DAILY 03/30/19 Lactobacillus Acidophilus [Acidophilus] 1 cap PO DAILY 07/12/19 Metformin HCl [Metformin HCl ER] 500 mg PO DAILY PRN PRN 07/12/19 Tamsulosin HCl [Flomax] 0.4 mg PO QHS 07/12/19 Acetaminophen [Tylenol Extra Strength] 500 mg PO DAILY PRN PRN 09/03/19 Digoxin 250 mcg PO DAILY 09/03/19 Losartan Potassium [Cozaar] 50 mg PO BID 09/03/19 Omeprazole [Prilosec] 20 mg PO QHS 09/03/19 Pravastatin Sodium 40 mg PO QHS 09/03/19 Vit A/Vit C/Vit E/Zinc/Copper [Preservision Areds Tablet] 1 ea PO BID 09/03/19 rivaroxaban 10 mg tablet 10 mg PO DAILY #90 tab 11/15/19 Metoprolol Tartrate [Lopressor (beta zita)] 50 mg PO DAILY 11/17/19 Amlodipine [Norvasc] 5 mg PO DAILY #30 tab 12/05/19 Cefdinir [Omnicef [equiv]] 300 mg PO BID #14 cap 12/05/19 Furosemide 40 mg PO DAILY #180 tab 12/05/19 Potassium Chloride [Klor-Con 10] 20 meq PO DAILY@1200 #0 12/05/19 Following Prescrptions Were Given to Patient: Amlodipine [Norvasc] 5 mg PO DAILY #30 tab Transmission Status: Received by MONIE PEACEMargy [facility] Cefdinir [Omnicef [equiv]] 300 mg PO BID #14 cap Transmission Status: Received by MONIE PEACEMargy [facility] Primary Care Physician: Joce,Fany, DO [Primary Care Provider] - Please follow up with your Primary Care Physician in: in 7-10 days Disposition: Home Minutes spent on discharge:: 31 Patient Condition:: Stable Medical Necessity - Tobacco Use Smoking Status: Former smoker Meaningful Use Info Meaningful Use Diagnoses (Choose all that apply): None applicable Inpatient E&M: 43113 Disch Hosp
--- NOTE | 2019-12-06 14:48 | CASEMGMT ---
[place] CM DC PHONE CALL DC DATE: 12/05/2019 DC DISPOSITION: Home DC DIAGNOSIS: sepsis, E.coli LACE/STRATA: 14/4 F/U APPTS MADE PRIOR TO DC: no. weekend dc Attempted call to patient. No answer and no message machine with name identifier. Gabi PANIAGUAN RN ACM
== END 2019-12-05 15:10 | disposition home or self-care (01) | DRG 872 ==
LOC: ED 14:39 → ICU 16:36 → PCU 12-03 16:37
PROVIDERS: Admitting Provider Internal Medicine; Emergency Provider Emergency Medicine; PCP Internal Medicine; Visit Provider Internal Medicine
DX: A41.51 Sepsis due to Escherichia coli [E. coli] (principal); N30.01 Acute cystitis with hematuria; B96.20 Unspecified Escherichia coli [E. coli] as the cause of diseases classified elsewhere; N17.9 Acute kidney failure, unspecified; I48.21 Permanent atrial fibrillation; I13.0 Hypertensive heart and chronic kidney disease with heart failure and stage 1 through stage 4 chronic kidney disease, or unspecified chronic kidney disease; I50.32 Chronic diastolic (congestive) heart failure; E11.22 Type 2 diabetes mellitus with diabetic chronic kidney disease; N18.3 Chronic kidney disease, stage 3 (moderate); E11.40 Type 2 diabetes mellitus with diabetic neuropathy, unspecified; I27.21 Secondary pulmonary arterial hypertension; I25.10 Atherosclerotic heart disease of native coronary artery without angina pectoris; J44.9 Chronic obstructive pulmonary disease, unspecified; G20 Parkinson's disease; F02.80 Dementia in other diseases classified elsewhere, unspecified severity, without behavioral disturbance, psychotic disturbance, mood disturbance, and anxiety; E78.5 Hyperlipidemia, unspecified; N40.1 Benign prostatic hyperplasia with lower urinary tract symptoms; R33.8 Other retention of urine; R39.14 Feeling of incomplete bladder emptying; G47.33 Obstructive sleep apnea (adult) (pediatric); F32.9 Major depressive disorder, single episode, unspecified; K21.9 Gastro-esophageal reflux disease without esophagitis; Z66 Do not resuscitate; E66.9 Obesity, unspecified; Z68.39 Body mass index [BMI] 39.0-39.9, adult; Z79.82 Long term (current) use of aspirin; Z79.84 Long term (current) use of oral hypoglycemic drugs; Z79.01 Long term (current) use of anticoagulants; Z79.899 Other long term (current) drug therapy; Z87.440 Personal history of urinary (tract) infections; Z85.118 Personal history of other malignant neoplasm of bronchus and lung; Z87.891 Personal history of nicotine dependence; Z95.1 Presence of aortocoronary bypass graft
CPT/HCPCS: 36415; 71045; 76770; 80048; 80053; 80162; 80202; 81001; 82962; 83605; 83735; 84100; 84484; 85025; 85610; 85730; 87040; 87086; 87088; 87186; 87449; 87635; 87641; 93005; 93306; 94002; 94640; 94660; 97162; 97165; 99251; 99284; G2023; J7030; J7040; J7120; Q9957; A4216; G0463; J0696; U0003

== ENCOUNTER → 2020-01-04 12:33 | Outpatient (CLI) | payer MEDICARE, OTHER, SELFPAY ==
[2019-12-22 06:55] VITALS: BMI 39.0
--- NOTE | 2020-01-04 12:34 | STE_ITS ---
Reason For Study: S/P CABG Stress Results Protocol: Dobutamine Stress Echo Maximum Predicted HR: 146 bpm Target HR: 124 bpm % Maximum Predicted HR: 86 % DurationHeart Rate Stage (mm:ss) (bpm) BP Dose BASELINE 78 140/68 STAGE 1 3:00 93 142/5810.00 STAGE 2 3:00 103 150/5020.00 STAGE 3 3:00 126 142/6030.00 STAGE 4 0:27 118 / 40.00 RECOVERY 90 142/50 Stress Duration: 9:27 mm:ss Maximum Stress HR: 126 bpm Baseline Echocardiogram Findings The estimated ejection fraction is 65 %. Stress Echo Wall motion Data Resting WM Intermediate WM Stress WM Resting Wall Motion Wall Motion Stress No regional wall motion No regional wall motion abnormalities noted. abnormalities noted. EKG Data Atrial fibrillation. The patient was titrated from 10 mcg to a maximun of 30 mcg of dobutamine during the stress. The maximum heart rate attained was 125 beats per minute. This was 85% of maximum predicted heart rate. During dobutamine infusion, there were no ST or T wave changes noted to suggest ischemia. No clinical angina was noted. Interpretation Summary The estimated ejection fraction is 65 %. Normal, adequate, dobutamine echocardiogram. Negative for ischemia by EKG and echocardiographic criteria. No anginal symptoms noted. Patient had ventricular bigeminy at baseline, with frequent PVCs and aberrancy during infusion. Appropriate blood pressure response to dobutamine. Test terminated due to the attainment of target heart rate. Final LVEF is 75%. Patient tolerate procedure well. Ordering Physician: Michoacano Garcia Referring Physician: Michoacano Garcia Performed By: Jj Munoz RCS
== END ==
PROVIDERS: PCP Internal Medicine; Referring Provider Internal Medicine Cardiovascular Disease; Visit Provider Internal Medicine Cardiovascular Disease
DX: I25.10 Atherosclerotic heart disease of native coronary artery without angina pectoris (principal); I27.21 Secondary pulmonary arterial hypertension; I48.20 Chronic atrial fibrillation, unspecified; Z95.1 Presence of aortocoronary bypass graft
CPT/HCPCS: 93017; 93350; J7040; A4216

== ENCOUNTER → 2020-01-12 06:42 | Outpatient (CLI) | payer MEDICARE, OTHER, SELFPAY ==
[2019-12-22 06:55] VITALS: BMI 39.0
[2020-01-12 07:25] LABS: AST(SGOT) 19 U/L (15-37); Alanine Aminotransfer ALT/SGPT 15 U/L (16-61); Albumin, Serum 3.3 g/dL (3.2-5.0); Alkaline Phosphatase 62 U/L (45-117); Bilirubin, Direct 0.42 mg/dL (0.00-0.30); Cholesterol 128 mg/dL (200); Globulin 3.6 g/dL (2.2-4.2); High Density Lipoprotein 33 mg/dL; Protein, Total 6.9 g/dL (6.4-8.2); Triglycerides 123 mg/dL; Very Low Density Lipoprotein 25 mg/dL (5-40)
--- NOTE | 2020-01-13 12:09 | PFT ---
INTRODUCTION: The patient is a 74-year-old male that presents for pulmonary function studies secondary to a diagnosis of COPD. Respiratory therapy reports good patient effort. Bronchodilators were used during testing. INTERPRETATION: Forced expiration spirometry demonstrates the presence of a severe large airways obstructive ventilatory defect. There was a significant response to aerosolized bronchodilators noted. Spirograms are of good quality and do not plateau indicating slow emptying of the lungs. Body plethysmography was performed and revealed an elevated RV to 158% of predicted, indicative of underlying air trapping. Diffusing capacity by single breath CO is severely reduced at 28% of predicted. IMPRESSION: Partially reversible severe large airways obstructive ventilatory defect with associated air trapping and symmetric reduction in diffusing capacity.
== END ==
PROVIDERS: Internal Medicine Cardiovascular Disease; PCP Internal Medicine; Referring Provider Internal Medicine Critical Care Medicine; Visit Provider Internal Medicine Critical Care Medicine
DX: J44.9 Chronic obstructive pulmonary disease, unspecified (principal); I25.10 Atherosclerotic heart disease of native coronary artery without angina pectoris; E78.5 Hyperlipidemia, unspecified; F10.20 Alcohol dependence, uncomplicated
CPT/HCPCS: 36415; 80061; 80076; 94060; 94726; 94729

== ENCOUNTER → 2020-01-24 12:19 | Outpatient (CLI) | payer MEDICARE, OTHER, SELFPAY ==
[2019-12-22 06:55] VITALS: BMI 39.0
[2020-01-24 13:02] VITALS: PULSE 49; PULSE 50; PULSE 54; PULSE 56; PULSE 57; PULSE 60; PULSE 61; O2SAT 85; O2SAT 89; O2SAT 90; O2SAT 92; O2SAT 93; O2SAT 94
--- NOTE | 2020-01-24 13:06 | CPS ---
PATIENT HAS OXYGEN THROUGH [facility]. ARRIVED FOR WALK TEST ON ROOM AIR. SPO2 DECREASED TO 85% AT 2MIN, REST TAKEN TO APPLY 2LPM NC-PT ALSO CYANOTIC AT THIS TIME. REMAINDER OF WALK COMPLETED ON 2LPM
--- NOTE | 2020-01-25 14:56 | PCM.PSN.6M ---
PSN 6 Minute Walk Test - 6 Minute Walk Test 6 Minute Walk Test: 6 Minute Walk Test PSN:6-Minute Walk Test Start: 01/24/20 13:02 Freq: Status: Active Protocol: RESP.6MINW Document 01/24/20 13:02 [facility] (Rec: 01/24/20 13:08 [facility] [id number]) 6 Minute Walk Test Date Performed 01/24/20 Time Performed 12:30 Height 5 ft 10 in Weight: 272 lb Weight in Pounds 272.[address]: Suresh Storm Assistive device used: Walker Pre-test Oxygen Delivery Method Room Air Pulse Ox (%) 93 Pulse Rate (60-100 beats/min) 50 L Dyspnea Duglas Scale (0-10) 1 1st minute Oxygen Delivery Method Room Air Pulse Ox (%) 90 Pulse Rate (60-100 beats/min) 56 L Dyspnea Duglas Scale (0-10) 1 Number of Rests Taken 0 2nd minute Oxygen Delivery Method Room Air Pulse Ox (%) 85 Pulse Rate (60-100 beats/min) 60 Dyspnea Duglas Scale (0-10) 2 Number of Rests Taken 1 Reported Symptoms Cyanotic 3rd minute Oxygen Flow Rate (L/min) (L/min) 2 Oxygen Delivery Method Nasal Cannula Pulse Ox (%) 89 Pulse Rate (60-100 beats/min) 61 Dyspnea Duglas Scale (0-10) 2 Number of Rests Taken 0 4th minute Oxygen Flow Rate (L/min) (L/min) 2 Oxygen Delivery Method Nasal Cannula Pulse Ox (%) 92 Pulse Rate (60-100 beats/min) 54 L Dyspnea Duglas Scale (0-10) 3 Number of Rests Taken 0 Reported Symptoms Increased Work of Breathing 5th minute Oxygen Flow Rate (L/min) (L/min) 2 Oxygen Delivery Method Nasal Cannula Pulse Ox (%) 93 Pulse Rate (60-100 beats/min) 57 L Dyspnea Duglas Scale (0-10) 3 Number of Rests Taken 0 Reported Symptoms Increased Work of Breathing 6th minute Oxygen Flow Rate (L/min) (L/min) 2 Oxygen Delivery Method Nasal Cannula Pulse Ox (%) 90 Pulse Rate (60-100 beats/min) 61 Dyspnea Duglas Scale (0-10) 3 Number of Rests Taken 0 Reported Symptoms Increased Work of Breathing Post-test Oxygen Delivery Method Room Air Pulse Ox (%) 94 Pulse Rate (60-100 beats/min) 49 L Dyspnea Duglas Scale (0-10) 1 Full Laps Walked 11 Partial Lap, Number of Tiles Walked 17 Total Distance Walked (ft) 666 01/24/20 13:06 Cardiopulmonary Services by Nelda Rey PATIENT HAS OXYGEN THROUGH [facility]. ARRIVED FOR WALK TEST ON ROOM AIR. SPO2 DECREASED TO 85% AT 2MIN, REST TAKEN TO APPLY 2LPM NC-PT ALSO CYANOTIC AT THIS TIME. REMAINDER OF WALK COMPLETED ON 2LPM Initialized on 01/24/20 13:06 - END OF NOTE - Interpretation Interpretation: The patient ambulated 666 feet over the course of 6 minutes beginning on room air without assistive devices or breaks. Pretesting oxygen saturation was noted to be 93% on room air. With ambulation, the anshu oxygen saturation was 85%. 2 L/min of supplemental oxygen was applied, and the patient was able to complete the remainder of the test while maintaining appropriate oxygen saturations. - Recommendations Recommendations: 2 L/min of supplemental oxygen should be utilized with exertion.
== END ==
PROVIDERS: PCP Internal Medicine; Referring Provider Internal Medicine Critical Care Medicine; Visit Provider Internal Medicine Critical Care Medicine
DX: J44.9 Chronic obstructive pulmonary disease, unspecified (principal); G47.33 Obstructive sleep apnea (adult) (pediatric)
CPT/HCPCS: 94618; 95811

== ENCOUNTER → 2020-02-23 15:08 | Outpatient (CLI) | payer MEDICARE, OTHER, SELFPAY ==
[2020-02-18 11:55] VITALS: BMI 38.2
[2020-02-23 15:25] LABS: Absolute Lymphocyte Count 0.96 X10^3/uL (0.83-4.51); Absolute Neutrophil Count 8.1 X10^3/uL (2.0-7.7); Basophil# 0.06 X10^3/uL; Basophil% 0.6 % (0-1); Eosinophil# 0.26 X10^3/uL; Eosinophils% 2.5 % (0-5); Hematocrit 31.3 % (40-54); Hemoglobin 9.6 g/dL (13.0-16.5); Lymphocyte # 0.96 X10^3/ul (4.0); Lymphocyte % 9.4 % (19-41); Mean Corp Hgb Conc 30.7 g/dL (32-36); Mean Corpuscular Hgb 30.7 pg (27.0-32.0); Mean Platelet Vol. 10.4 fl (6.2-12.0); Monocyte# 0.73 X10^3/uL; Monocyte% 7.1 % (0-10); NRBC Flagged by Analyzer 0 % (0-5); Neutrophil # 8.13 X10^3/uL (2.7-7.7); Neutrophil % 79.7 % (47-70); POSITIVE MORPHOLOGY YES; Platelet Count 229 K/mm3 (150-450); RBC Distribution Width SD 66.3 fl (35.1-43.9); Red Blood Count 3.13 M/mm3 (4.6-6.2); White Blood Count 10.2 K/mm3 (4.4-11.0)
[2020-02-23 15:28] LABS: Differential Indicated SCAN CRITERIA MET
[2020-02-23 16:10] LABS: ALB/GLOB Ratio 0.9 RATIO (0.9-2.4); AST(SGOT) 20 U/L (15-37); Alanine Aminotransfer ALT/SGPT 13 U/L (16-61); Albumin, Serum 3.2 g/dL (3.2-5.0); Alkaline Phosphatase 64 U/L (45-117); Anion Gap 4 (5-15); BUN 13 mg/dL (7-18); BUN/Creat Ratio 10.5 RATIO (10-20); Calcium,Total 8.8 mg/dL (8.5-10.1); Chloride 105 mmol/L (98-107); Creatinine, Serum 1.24 mg/dL (0.70-1.30); EST Glomerular Filtration Rate 61 mL/min (>60); Est Glom Filt Rate - Afr Amer 73 mL/min (>60); Globulin 3.5 g/dL (2.2-4.2); Glucose 81 mg/dL (74-106); Magnesium 2.1 mg/dL (1.6-2.6); Potassium 3.6 mmol/L (3.5-5.1); Protein, Total 6.7 g/dL (6.4-8.2); Sodium Level 140 mmol/L (136-145); Thyroid Stim Hormone (TSH) 2.88 uIU/mL (0.358-3.74)
[2020-02-23 16:45] LABS: Anisocytosis 1+; Hypochromasia RARE; Macrocytosis RARE
== END ==
PROVIDERS: PCP Internal Medicine; Referring Provider Internal Medicine; Visit Provider Internal Medicine
DX: I49.3 Ventricular premature depolarization (principal)
CPT/HCPCS: 80053; 83735; 84443; 84484; 85025

== ENCOUNTER → 2020-02-24 11:04 | Outpatient (CLI) | payer MEDICARE, OTHER, SELFPAY ==
[2020-02-18 11:55] VITALS: BMI 38.2
== END ==
PROVIDERS: PCP Internal Medicine; Referring Provider Internal Medicine; Visit Provider Internal Medicine
DX: I49.3 Ventricular premature depolarization (principal)
CPT/HCPCS: 93225; 93226

== ENCOUNTER 2020-03-22 08:02 | Day surgery (SDC) | payer MEDICARE, OTHER, SELFPAY ==
[2020-03-07 08:40] VITALS: BMI 37.7
--- NOTE | 2020-03-07 08:48 | HP_ITS ---
Intake Vital Signs 03/07/20 BMI 37.7 03/07/20 Height 5 ft 9 in 03/07/20 Weight: 273 lb 03/07/20 BMI 40.3 03/07/20 BP 127/74 H 03/07/20 Blood Pressure Location Rt brachial 03/07/20 Position Sitting 03/07/20 Respiration 18 03/07/20 Pulse 80 03/07/20 Pulse Source Monitor 03/07/20 Temp 98.0 F 03/07/20 Temp Source Temporal 03/07/20 Oxygen Delivery Method room air 03/06/20 BMI 37.7 Intake Visit Reasons: POSITIVE STOOL, ANEMIA Chief Complaint: Iron deficiency anemia/Positive stool Drill Hand Required: No Accompanied by: Is patient in pain?: No Allergies No Known Allergies Allergy (Verified 03/07/20 08:38) Medications Folic Acid 1 mg PO DAILY@1200 05/06/13 [History Confirmed 03/07/20] Duloxetine HCl 60 mg PO QHS 12/04/16 [History Confirmed 03/07/20] Pramipexole Di-HCl [Mirapex] 0.5 mg PO TID 12/04/16 [History Confirmed 03/07/20] aspirin 81 mg tablet,delayed release 81 mg PO DAILY 10/06/17 [History Confirmed 03/07/20] docusate sodium 100 mg capsule 100 mg PO BID cap 10/20/17 [History Confirmed 03/07/20] Ferrous Sulfate [Iron] 65 mg PO DAILY 02/01/19 [History Confirmed 03/07/20] cholecalciferol (vitamin D3) 125 mcg (5,000 unit) capsule 5,000 unit PO DAILY 03/30/19 [History Confirmed 03/07/20] Lactobacillus Acidophilus [Acidophilus] 1 cap PO DAILY 07/12/19 [History Confirmed 03/07/20] Metformin HCl [Metformin HCl ER] 500 mg PO DAILY PRN PRN 07/12/19 [History Confirmed 03/07/20] Tamsulosin HCl [Flomax] 0.4 mg PO QHS 07/12/19 [History Confirmed 03/07/20] Acetaminophen [Tylenol Extra Strength] 500 mg PO DAILY PRN PRN 09/03/19 [History Confirmed 03/07/20] Omeprazole [Prilosec] 20 mg PO QHS 09/03/19 [History Confirmed 03/07/20] Pravastatin Sodium 40 mg PO QHS 09/03/19 [History Confirmed 03/07/20] Vit A/Vit C/Vit E/Zinc/Copper [Preservision Areds Tablet] 1 ea PO BID 09/03/19 [History Confirmed 03/07/20] rivaroxaban 10 mg tablet 10 mg PO DAILY #90 tab 11/15/19 [Rx Confirmed 03/07/20] fenofibrate nanocrystallized 145 mg tablet 145 mg PO LUNCH #90 tab 12/06/19 [Rx Confirmed 03/07/20] furosemide 40 mg tablet 40 mg PO BID tab 12/16/19 [History Confirmed 03/07/20] gabapentin 600 mg tablet 600 mg PO QHS tab 12/16/19 [History Confirmed 03/07/20] metoprolol succinate 50 mg tablet,extended release 24 hr 50 mg PO DAILY 12/16/19 [History Confirmed 03/07/20] finasteride 5 mg tablet 5 mg PO DAILY 12/22/19 [History Confirmed 03/07/20] amlodipine 5 mg tablet 5 mg PO DAILY #90 tab 01/12/20 [Rx Confirmed 03/07/20] albuterol sulfate 90 mcg/actuation aerosol inhaler 2 puff INHALATION Q4H PRN #3 device 02/14/20 [Rx Confirmed 03/07/20] fluticasone fur. 100 mcg-umeclid 62.5 mcg-vilant 25 mcg inhalat.powder 1 inh INHALATION DAILY #3 device 02/14/20 [Rx Confirmed 03/07/20] losartan 50 mg tablet 50 mg PO BID #180 tab 02/24/20 [Rx Confirmed 03/07/20] spironolactone 25 mg tablet 25 mg PO DAILY #90 tab 02/25/20 [Rx Confirmed 03/07/20] PFSH Medical History Atherosclerosis of coronary artery of [place] heart without angina pectoris (Chronic) NSTEMI (non-ST elevated myocardial infarction) (Resolved 12/02/19) Longstanding persistent atrial fibrillation (Chronic) Benign essential hypertension (Chronic) Hyperlipidemia (Chronic) Iron deficiency anemia due to chronic blood loss (Chronic) Secondary pulmonary arterial hypertension (Chronic) 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 (Chronic) HEBER (obstructive sleep apnea) (Chronic) Adenocarcinoma of lung, stage 1 (Chronic) Cancer of upper lobe of left lung (Chronic) Dementia (Chronic) Essential tremor (Chronic) GERD (gastroesophageal reflux disease) (Chronic) GI bleed (Chronic) Gastric AVM (Chronic) Parkinsons (Chronic) Alcohol dependence (Resolved) Pneumonia (Resolved) Sepsis (Resolved) Severe sepsis (Resolved) Acute kidney injury (Inactive) Sepsis (Inactive) Surgical History History of coronary artery stent placement (Resolved 12/23/06) H/O coronary artery bypass surgery (Chronic 02/14/06) History of cardioversion (Chronic 12/2016) Status post insertion of iliac artery stent (Chronic 08/04/12) History of hammer toe correction (Resolved) History of left heart catheterization (Resolved 05/10/13) History of lobectomy of lung (Resolved) History of open reduction and internal fixation (ORIF) procedure (Resolved) History of open reduction and internal fixation (ORIF) procedure (Resolved) History of tonsillectomy and adenoidectomy (Resolved) Status post surgical removal of neoplasm of skin (Resolved) Family History Sister Alcoholism Cancer Mother Arthritis Father Arthritis Brother Cancer Social History (Updated 03/07/20 @ 08:[address] Michoacano Alcala MD) Smoking Status: Former smoker how long ago did patient quit smokin years ago second hand exposure: No alcohol intake: current alcohol intake frequency: holidays/special occasions only Alcohol type: wine substance use type: does not use caffeine: Yes Type: coffee Number of servings: 1 what type of physical activity do you participate in: none frequency: does not exercise seatbelt use: always HPI HPI Surgical H&P: Yes HPI: JV DURHAM, is a 74 M who presents to the office today for Evaluation for endoscopy. Patient has recently had some test which shows that he has a hemoglobin level of 9.9 and he has been having heme positive stools. Patient cannot recall the last time he had his colonoscopy he thinks it has been probably around 5 years or little later. He has never had an upper endoscopy that he knows of. He has not been complaining of any abdominal pain he has had no overt bleeding that he is identified. ROS General General: Yes fatigue; no weight change, appetite, colon cancer, breast cancer or weakness HEENT HEENT: No difficulty swallowing, eye injury, eye surgery, swollen glands or hoarseness Endo Endocrine: Yes diabetes mellitus; no thyroid disease, thyroid cancer, Hair loss, heat intolerance or cold intolerance Skin Skin: No rash or changing moles Breast Breast: No left breast lump, right breast lump, nipple discharge, breast pain, abnormal mammogram, abnormal US or breast enlargement Musc Musculoskeletal: Yes back problems and arthritis; no rheumatoid arthritis, gout or joint pain Cardio Cardiovascular: Yes heart disease, atrial fibrillation, high blood pressure and heart stent; no murmur, pacemaker, heart attack, palpitations, shortness of breat with exertion or chest pain Psych Psychiatric: No depression, anxiety or hearing voices Resp Respiratory: Yes shortness of breath, Yes sleep apnea, No cough, Yes COPD, No asthma, Yes emphysema, No wheezing Gastro Gastrointestinal: No abdominal pain, No nausea or vomiting, No diarrhea, No constipation, No blood in stool, No acid reflux, No hemorrhoids, No ulcers, No gallbladder problem, No black,tarry stools [place] Hematologic: Yes blood thinners, No blood disorders, Yes bleeding, Yes anemia, No blood clots Neuro Neurologic: No system reviewed and no additional complaints, except as docu, No as per HPI, No abnormal walking, No abnormal hearing, No abnormal movements, No abnormal speech, No behavioral changes, No burning sensations, No confusion, No seizure-like activity, No unsteadiness, No dizziness, No localized weakness, No frequent falls, No headache(s), No lack of coordination, No loss of vision, No memory loss, No numbness, No other visual disturbances, No radiating pain, No restless legs, No sensory deficit, No fainting, No tingling, No tremor(s), No weakness, No other Exam Const General: no acute distress, well developed, well hydrated Orientation: oriented to person, oriented to place, oriented to time [facility] Head: normocephalic, atraumatic Ears: external ears normal Mouth: moist mucous membranes Eyes Sclera: sclerae normal Pupils: normal by confrontation Neck Neck: no lymphadenopathy noted Neck mass: No Thyroid: thyroid normal, symmetrical Chest Chest palpation & inspection: normal inspection of the chest Breast Palpation: No nipple discharge Resp Effort & Inspection: normal respiratory effort Auscultation: clear to auscultation bilaterally Percussion: percussion normal Cardio Rate: regular rate Rhythm: regular rhythm Heart Sounds: no murmurs GI Inspection: obesity Palpation: soft, no hepatosplenomegaly, no masses, nontender Rectal Exam: other Other: Rectal exam deferred. Extrem General: normal to inspection, no clubbing, cyanosis or edema Assessment & Plan Problems 1. Iron deficiency anemia due to chronic blood loss D50.0 2. Heme positive stool R19.5 Plan I have discussed the above with the patient. I have offered the patient colonoscopy As well as an EGD for evaluation. I have explained the risks/benefits of the procedure and described the procedure. I have discussed the risks with the patient, including but not limited to: infection, bleeding, perforation of the GI tract requiring emergency surgery, inability to complete the procedure, injury to any internal organs, complications of anesthesia, etc. - the patient understands and agrees to proceed. I have answered all the patient's questions to the patient's satisfaction and the patient has no further questions. The patient has been given instructions for the colon cleansing preparation. Coding Level of Care Code Off vis,est,level 3 Diagnoses Iron deficiency anemia due to chronic blood loss D50.0 Heme positive stool R19.5 COVID (Procedure Consent) Procedure Criteria Procedure Criteria: Yes Elective The surgeon/proceduralist and patient have discussed in detail the risk of exposure to and/or potential harm posed by the COVID-19 virus with having a surgery/procedure at this time versus the risk of? delaying the surgery/procedure. It is not possible to know either the risk of delaying the surgery or procedure or chance of getting an infection with perfect accuracy, but a joint decision was made between the patient and the surgeon/proceduralist ?to proceed at this time with the scheduled surgery/procedure as indicated on the consent form. 03/07/20 0848 <Electronically signed by Michoacano bateman MD> Date _ Michoacano Alcala MD I have re-examined the patient. There are no clinical changes since date of exam.
[2020-03-22] MEDS: Lactated Ringers 1,000 ML 100 ML IV (08:30)
[2020-03-22 08:32] VITALS: BP 122/59; PULSE 61; RESP 16; TEMP 37.1; O2SAT 95; BMI 39.2
[2020-03-22 08:45] LABS: Bedside Glucose 93 mg/dL (70-110)
--- NOTE | 2020-03-22 09:00 | COLBX_PTH ---
PATIENT: JV DURHAM Jr. LOC: EN U#:[id number] AGE/SX: 74/M ROOM: RE03/22/[address]: Dr. Michoacano Alcala MD : 1945 BED: DIS: 03/22/2020 SPEC #: [id number] RECD: 03/22/20 12:25 STATUS: ELIZABETH MADELINE #: [id number] ROXANA: 03/22/20 09:[address]: Michoacano Alcala DEPT: SURGICAL PATHOLOGY RECD BY: Kevin Olivier ENTERED: 03/22/20 13:25 SP TYPE: COLON BX OTHR DR: Dr. Fany Hobson, Tissues: A - Gastric mucous membrane B - Gastric mucous membrane Procedures: Surgery Specimen Level IV HEADER OPERATION[place] [place] DIAGNOSIS: Iron deficiency anemia, heme-positive stool TISSUE SUBMITTED: A - Antrum biopsy for histo and H. pylori, B - Hepatic flexure biopsy MICROSCOPIC DIAGNOSIS A. Gastric antrum, biopsy: Chronic gastritis. B. Colon at hepatic flexure, biopsy: Fragments of tubular adenoma. AM:armando 03/23/20 COMMENT A. The results of immunohistochemistry for Helicobacter pylori will be reported separately ([id number]). MICROSCOPIC DESCRIPTION Slides are reviewed. GROSS DESCRIPTION A - Received in fixative is one container labeled with the patient's name and designated antrum biopsy. The specimen consists of one irregular fragment of light leary soft tissue that measures 0.7 x 0.2 x 0.1 cm. The specimen is totally submitted in one cassette. B - Received in fixative is one container labeled with the patient's name and designated hepatic flexure biopsy. The specimen consists of multiple irregular fragments of light leary soft tissue that in aggregate measure 1 x 0.5 x 0.1 cm. The specimen is totally submitted in one cassette. / AM:armando 03/22/20 TC:3 CPT: 46014 x2
--- NOTE | 2020-03-22 09:00 | IMM_PTH ---
PATIENT: JV DURHAM Jr. LOC: EN U#:[id number] AGE/SX: 74/M ROOM: RE03/22/[address]: Dr. Michoacano Alcala MD : 1945 BED: DIS: 03/22/2020 SPEC #: [id number] RECD: 03/22/20 14:05 STATUS: SOUGina REQ #: [id number] ROXANA: 03/22/20 09:[address]: Michoacano Alcala DEPT: IMMUNOHISTOCHEMISTRY RECD BY: Anahy Peterson ENTERED: 03/22/20 14:06 SP TYPE: IMMUNO OTHR DR: Dr. Fany Hobson DO Tissues: A - Stomach, NOS Procedures: H Pylori (initial) PHYSICIAN & INSTITUTION [place] [id number] SPECIMEN INFORMATION: Tissue Source: A - Antrum biopsy Clinical Info: Iron deficiency anemia; heme-positive stool Specimen Number: [id number] CPT code: 95063 METHODOLOGY: Deparaffinized sections of prefer/formalin-fixed tissue or PAP/DQ stained slides are incubated with monoclonal/polyclonal antibodies/oligonucleotide probes. Localization is made via biotin free immunoperoxidase method. Appropriate controls are performed and reacted as expected. Results on target cell population are indicated in the following table: RESULTS: ANTIBODY / CLONE RESULT Block A H Pylori (polyclonal) negative These tests were developed and their performance characteristics determined by [facility]. They may not have been cleared or approved by the U.S. Food and Drug Administration. The FDA has determined that such clearance or approval is not necessary. INTERPRETATION: A. Antrum biopsy: Negative for Helicobacter pylori organisms. AM:armando 03/23/20
[2020-03-22 09:40] VITALS: BP 122/59; BP 88/67; PULSE 65; RESP 16; TEMP 36.4; O2SAT 98
[2020-03-22 09:45] VITALS: BP 110/60; BP 122/59; PULSE 66; RESP 16; O2SAT 98
--- NOTE | 2020-03-22 09:45 | OP.CCLET_ITS ---
06/06/2020 Fany Hobson Re : Upper GI endoscopy procedure for Vickey Hobson This procedure was performed on Sunday, March 22, 2020. My impressions and recommendations are as follows: Impressions : - Normal esophagus. - Z-line regular, 50 cm from the incisors. - Mucosal changes suspicious for gastritis. Biopsied. - Normal examined duodenum. No specimens collected. Recommendations : - Discharge patient to home. - Resume previous diet. - Continue present medications. - Await pathology results. - Repeat upper endoscopy at appointment to be scheduled for surveillance. - Return to my office in 1 week. My findings are described in the full procedure note, which is enclosed. If I can be of further assistance, please feel free to contact me at Doctor phone number(s): , Fax: [phone], Work: . Sincerely, MD Michoacano Kirkland MD 03/22/2020 9:45:13 AM This report has been signed electronically.
--- NOTE | 2020-03-22 09:45 | OP.EGD_ITS ---
Patient Name: Vickey Haney Procedure Date: 03/22/2020 8:54 AM Date of : 1945 Age: 74 Procedure: Upper GI endoscopy Indications: Iron deficiency anemia, Heme positive stool Providers: Michoacano Alcala MD Referring MD: Fany Hobson Medicines: See the Anesthesia note for documentation of the administered medications Patient Profile: This is a 74 year old male. Refer to note in patient chart for documentation of history and physical. Complications: No immediate complications. Procedure: Pre-Anesthesia Assessment: - Prior to the procedure, a History and Physical was performed, and patient medications and allergies were reviewed. The patient's tolerance of previous anesthesia was also reviewed. The risks and benefits of the procedure and the sedation options and risks were discussed with the patient. All questions were answered, and informed consent was obtained. Prior Anticoagulants: The patient has taken aspirin, last dose was 1 day prior to procedure. ASA Grade Assessment: III - A patient with severe systemic disease. After reviewing the risks and benefits, the patient was deemed in satisfactory condition to undergo the procedure. After obtaining informed consent, the endoscope was passed under direct vision. Throughout the procedure, the patient's blood pressure, pulse, and oxygen saturations were monitored continuously. The Endoscope was introduced through the mouth, and advanced to the second part of duodenum. The upper GI endoscopy was accomplished without difficulty. The patient tolerated the procedure well. Scope In: 9:07:46 AM Scope Out: 9:10:46 AM Total Procedure Duration Time 0 hours 3 minutes 0 seconds Findings: The examined esophagus was normal. The Z-line was regular and was found 50 cm from the incisors. Localized moderate inflammation characterized by congestion (edema), erosions and erythema was found in the prepyloric region of the stomach. Biopsies were taken with a cold forceps for Helicobacter pylori testing. The examined duodenum was normal. No biopsies or other specimens were collected for this exam. Impression: - Normal esophagus. - Z-line regular, 50 cm from the incisors. - Mucosal changes suspicious for gastritis. Biopsied. - Normal examined duodenum. No specimens collected. Recommendation: - Discharge patient to home. - Resume previous diet. - Continue present medications. - Await pathology results. - Repeat upper endoscopy at appointment to be scheduled for surveillance. - Return to my office in 1 week. Procedure Code(s): --- Professional --- 05607, Esophagogastroduodenoscopy, flexible, transoral; with biopsy, single or multiple Diagnosis Code(s): --- Professional --- K31.89, Other diseases of stomach and duodenum D50.9, Iron deficiency anemia, unspecified R19.5, Other fecal abnormalities CPT copyright 2017 [employer]. All rights reserved. The codes documented in this report are preliminary and upon recruitment advertising manager review may be revised to meet current compliance requirements. MD Michoacano Kirkland MD 03/22/2020 9:45:13 AM This report has been signed electronically. Number of Addenda: 0 Note Initiated On: 03/22/2020 8:54 AM
--- NOTE | 2020-03-22 09:49 | OP.COLON_ITS ---
Patient Name: Vickey Haney Procedure Date: 03/22/2020 9:10 AM Date of : 1945 Age: 74 Procedure: Colonoscopy Indications: Heme positive stool, Iron deficiency anemia Providers: Michoacano Alcala MD Referring MD: Fany Hobson Medicines: See the Anesthesia note for documentation of the administered medications Patient Profile: This is a 74 year old male. Refer to note in patient chart for documentation of history and physical. Last Colonoscopy: 5 years ago. Complications: No immediate complications. Procedure: Pre-Anesthesia Assessment: - Prior to the procedure, a History and Physical was performed, and patient medications and allergies were reviewed. The patient's tolerance of previous anesthesia was also reviewed. The risks and benefits of the procedure and the sedation options and risks were discussed with the patient. All questions were answered, and informed consent was obtained. Prior Anticoagulants: The patient has taken aspirin, last dose was 1 day prior to procedure. ASA Grade Assessment: III - A patient with severe systemic disease. After reviewing the risks and benefits, the patient was deemed in satisfactory condition to undergo the procedure. After I obtained informed consent, the scope was passed under direct vision. Throughout the procedure, the patient's blood pressure, pulse, and oxygen saturations were monitored continuously. The adult colonoscope was introduced through the anus and advanced to the cecum, identified by appendiceal orifice and ileocecal valve. The colonoscopy was performed without difficulty. The patient tolerated the procedure well. The quality of the bowel preparation was good. Scope In: 9:12:47 AM Scope Withdrawal Time 0 hours 11 minutes 17 seconds Scope Out: 9:35:19 AM Total Procedure Duration Time 0 hours 22 minutes 32 seconds Findings: A large polyp was found in the hepatic flexure. The polyp was carpet-like. Biopsies were taken with a cold forceps for histology. For location marking, one hemostatic clip was successfully placed. There was no bleeding at the end of the procedure. Area was tattooed with an injection of 2 mL of Brenna ink. The entire examined colon appeared normal. A few small-mouthed diverticula were found in the sigmoid colon. No biopsies or other specimens were collected for this exam. Impression: - One large polyp at the hepatic flexure. Biopsied. Clip was placed. Tattooed. - The entire examined colon is normal. - Diverticulosis in the sigmoid colon. No specimens collected. Recommendation: - Discharge patient to home. - Resume previous diet. - Continue present medications. - Await pathology results. - Perform a flat plate abdominal x-ray today. - Repeat colonoscopy in 5 years for surveillance. Procedure Code(s): --- Professional --- 58612, Colonoscopy, flexible; with directed submucosal injection(s), any substance 70753, Colonoscopy, flexible; with biopsy, single or multiple 13032, Unlisted procedure, colon Diagnosis Code(s): --- Professional --- D12.3, Benign neoplasm of transverse colon (hepatic flexure or splenic flexure) R19.5, Other fecal abnormalities D50.9, Iron deficiency anemia, unspecified K57.30, Diverticulosis of large intestine without perforation or abscess without bleeding CPT copyright 2017 [employer]. All rights reserved. The codes documented in this report are preliminary and upon cooker casing review may be revised to meet current compliance requirements. MD Michoacano Kirkland MD 03/22/2020 9:49:20 AM This report has been signed electronically. Number of Addenda: 0 Note Initiated On: 03/22/2020 9:10 AM
--- NOTE | 2020-03-22 09:49 | OP.CCLET_ITS ---
03/22/2020 Fany Hobson Re : Colonoscopy procedure for Vickey Hobson This procedure was performed on Sunday, March 22, 2020. My impressions and recommendations are as follows: Impressions : - One large polyp at the hepatic flexure. Biopsied. Clip was placed. Tattooed. - The entire examined colon is normal. - Diverticulosis in the sigmoid colon. No specimens collected. Recommendations : - Discharge patient to home. - Resume previous diet. - Continue present medications. - Await pathology results. - Perform a flat plate abdominal x-ray today. - Repeat colonoscopy in 5 years for surveillance. My findings are described in the full procedure note, which is enclosed. If I can be of further assistance, please feel free to contact me at Doctor phone number(s): , Fax: [phone], Work: . Sincerely, MD Michoacano Kirkland MD 03/22/2020 9:49:20 AM This report has been signed electronically.
[2020-03-22 09:50] VITALS: BP 117/90; BP 122/59; PULSE 66; RESP 16; O2SAT 98
[2020-03-22 09:55] VITALS: BP 110/62; BP 122/59; PULSE 56; RESP 16; TEMP 36.6; O2SAT 99
--- NOTE | 2020-03-22 10:13 | RAD_ITS ---
STUDY: X-RAY - ABDOMEN/PELVIS REASON FOR EXAM: Male, 74 years old. COLON MARKING CLIP AT HEPATIC FLEX TECHNIQUE: Single AP view of the abdomen / pelvis. COMPARISON: None. FINDINGS: Radiopaque linear density in the right upper abdomen likely correlates to endoscopic marking clip. Gaseous distention of colon likely related to recent colonoscopy. There is no demonstrated free abdominal air. The visualized liver, spleen and kidneys are grossly normal in size and morphology. Surgical implants of the prostate gland noted. Atherosclerotic calcifications of the iliofemoral arteries. There are diffuse degenerative changes of the visualized lumbar spine. RAD/Abdomen Single View IMPRESSION: Procedural clip in the right upper abdomen/hepatic flexure region. Electronically Signed: Emerson Durant MD ([place]) at 12:06 EDT , Service support ,
[2020-03-22 10:34] VITALS: BP 122/59
== END 2020-03-22 10:45 | disposition home or self-care (01) ==
LOC: EN 08:02 → AC 08:02
PROVIDERS: Anesthesiology; PCP Internal Medicine; Referring Provider Internal Medicine; Visit Provider Surgery
PROC: 0DJD8ZZ Inspection of Lower Intestinal Tract, Via Natural or Artificial Opening Endoscopic (ICD-10-PCS; CPT 45378; principal; 2020-03-22 08:55)
DX: D12.3 Benign neoplasm of transverse colon (principal); K29.50 Unspecified chronic gastritis without bleeding; K57.30 Diverticulosis of large intestine without perforation or abscess without bleeding; D50.0 Iron deficiency anemia secondary to blood loss (chronic); Z11.59 Encounter for screening for other viral diseases; C34.90 Malignant neoplasm of unspecified part of unspecified bronchus or lung; I25.10 Atherosclerotic heart disease of native coronary artery without angina pectoris; I27.21 Secondary pulmonary arterial hypertension; G20 Parkinson's disease; I48.11 Longstanding persistent atrial fibrillation; J44.9 Chronic obstructive pulmonary disease, unspecified; E11.9 Type 2 diabetes mellitus without complications; I10 Essential (primary) hypertension; E78.5 Hyperlipidemia, unspecified; F03.90 Unspecified dementia, unspecified severity, without behavioral disturbance, psychotic disturbance, mood disturbance, and anxiety; G47.33 Obstructive sleep apnea (adult) (pediatric); K21.9 Gastro-esophageal reflux disease without esophagitis; Z79.01 Long term (current) use of anticoagulants; Z79.84 Long term (current) use of oral hypoglycemic drugs; Z79.899 Other long term (current) drug therapy; I25.2 Old myocardial infarction; Z95.1 Presence of aortocoronary bypass graft; Z95.5 Presence of coronary angioplasty implant and graft; Z87.891 Personal history of nicotine dependence; K31.89 Other diseases of stomach and duodenum; Z79.82 Long term (current) use of aspirin
CPT/HCPCS: 43239; 45380; 45381; 74018; 82962; 87635; 88305; 88342; C9803; J7120; A4216; J2405; U0003

== ENCOUNTER → 2020-04-17 12:29 | Outpatient (CLI) | payer MEDICARE, OTHER, SELFPAY ==
[2020-02-16 14:13] VITALS: BMI 38.2
[2020-03-22 08:32] VITALS: BMI 39.2
--- NOTE | 2020-04-17 12:29 | CT_ITS ---
STUDY: CT CHEST WITH CONTRAST REASON FOR EXAM: Male, 74 years old. FOLLOW UP LUNG CA UPPER LEFT LOBE W/ CHEMO -- SURG-CABG X2 RADIATION DOSAGE (If Supplied By Facility): CTDIvol = ( 22.84 ) mGy, DLP = ( 1738.60 ) mGycm TECHNIQUE: Transaxial imaging was performed following intravenous administration of IV 100mL Isovue-300. Multiplanar coronal and sagittal images were reformatted. Individualized dose optimization techniques were used for this CT. COMPARISON: Comparison is made with prior study dated 11/10/2019. FINDINGS: A right-sided portacatheter is seen with the tip in the superior vena cava. Emphysematous changes more prominent in the upper lobes. Stable linear calcific scar at the left lung apex in comparison with prior surgery. This is unchanged. There is no demonstrated pleural abnormality. There are calcifications of the coronary arteries. There are multiple small lymph nodes within the mediastinum, which are normal in size and morphology most compatible with reactive lymph hyperplasia. Normal hilar regions. Normal enhanced pulmonary arteries. Normal aorta arch and descending thoracic aorta. There are multi-level degenerative changes of the thoracic spine. Stable heterogeneous fat-containing mass in the right adrenal gland with focal calcifications. CT/Chest WITH Contrast IMPRESSION: Stable examination. No acute abnormality is seen. Electronically Signed: Navdeep Pacheco, at 15:18 EST , Service support ,
--- NOTE | 2020-04-17 12:29 | CT_ITS ---
STUDY: CT ABDOMEN WITH CONTRAST REASON FOR EXAM: Male, 74 years old. FOLLOW UP LUNG CA UPPER LEFT LOBE W/ CHEMO -- SURG-CABG X2 RADIATION DOSAGE (If Supplied By Facility): CTDIvol = ( 22.84 ) mGy, DLP = ( 1738.60 ) mGycm TECHNIQUE: Transaxial images were obtained post I.V. administration of IV 100mL Isovue-300, and with oral contrast. Sagittal and coronal images were reconstructed. Individualized dose optimization techniques were used for this CT. COMPARISON: Comparison is made with prior study dated 11/10/2019. FINDINGS: The visualized lung bases are unremarkable. Coronary artery calcification. Normal liver. Normal gallbladder and extrahepatic biliary system. Normal spleen. Normal pancreas. Stable 5.3 cm x 3.7 cm heterogeneous fat-containing mass in the right adrenal gland. Focal calcifications are seen within as well. Diffuse cortical thinning of both kidneys. Normal visualized stomach. Normal small intestine. Normal colon. The appendix is visualized and appears normal. There is diffuse atherosclerotic calcification of the abdominal aorta and its major visceral branches, without a demonstrated aneurysm. Normal inferior vena cava. Normal retroperitoneum. Normal abdominal wall. There are mild degenerative changes of the visualized lumbar spine. CT/Abdomen WITH IV Contrast IMPRESSION: Stable examination. No acute abnormality is seen. Electronically Signed: Navdeep Pacheco, at 15:15 EST , Service support ,
[2020-04-17 12:46] LABS: CREATININE FINGERSTICK 0.9 mg/dL (0.70-1.30); EGFR FINGERSTICK > 60.0000 mL/min (>60)
[2020-04-17] MEDS: 0.9% Saline Lock 10 ML Syringe IV (13:00)
== END ==
PROVIDERS: PCP Internal Medicine; Referring Provider Internal Medicine Hematology & Oncology; Visit Provider Internal Medicine Hematology & Oncology
DX: C34.12 Malignant neoplasm of upper lobe, left bronchus or lung (principal); C34.90 Malignant neoplasm of unspecified part of unspecified bronchus or lung
CPT/HCPCS: 36591; 71260; 74160; 80053; 82728; 83540; 83550; 85025; Q9967; A4216

== ENCOUNTER → 2020-05-09 11:00 | Outpatient (CLI) | payer MEDICARE, OTHER, SELFPAY ==
[2020-05-09 10:06] VITALS: BMI 40.6
[2020-05-09 12:30] LABS: Rheumatoid Factor < 10.0 IU/mL (<15)
[2020-05-10 14:59] LABS: ANTINUCLEAR ANTIBODIES DIRECT Negative (Negative)
[2020-05-11 03:07] LABS: Cytoplasmic Ab (C-ANCA) <1:20 titer (Neg:<1:20)
[2020-05-11 08:41] LABS: CCP IgG Antibodies 5 units (0-19); Perinuclear Ab (P-ANCA) <1:20 titer (Neg:<1:20)
== END ==
PROVIDERS: PCP Internal Medicine; Referring Provider Nurse Practitioner Acute Care; Visit Provider Nurse Practitioner Acute Care
DX: I27.21 Secondary pulmonary arterial hypertension (principal)
CPT/HCPCS: 36415; 86038; 86200; 86225; 86235; 86256; 86431

== ENCOUNTER → 2020-05-09 11:17 | Outpatient (CLI) | payer MEDICARE, OTHER, SELFPAY ==
[2020-05-09 10:06] VITALS: BMI 40.6
== END ==
PROVIDERS: PCP Internal Medicine; Referring Provider Nurse Practitioner Acute Care; Visit Provider Nurse Practitioner Acute Care
DX: I27.20 Pulmonary hypertension, unspecified (principal); Z45.2 Encounter for adjustment and management of vascular access device
CPT/HCPCS: 36415; 36591; 86038; 86200; 86225; 86235; 86256; 86431; A4216

== ENCOUNTER 2020-07-14 15:09 | Inpatient (IN) | payer MEDICARE, OTHER, SELFPAY ==
[2020-06-27 13:10] VITALS: BMI 40.1
[2020-07-14 15:10] VITALS: BP 141/60; PULSE 73; RESP 20; TEMP 36.4; O2SAT 92; BMI 40.8
--- NOTE | 2020-07-14 15:54 | RAD_ITS ---
STUDY: X-RAY - LEFT FOOT CLINICAL: Male, 74 years old. INFECTION IN LEFT GREAT TOE. TECHNIQUE: 3 view(s) of the foot. COMPARISON: None. FINDINGS: Normal talus, calcaneus, and tarsal bones. Normal visualized subtalar, talonavicular, calcaneocuboid, tarsal and tarsometatarsal articulations. Normal metatarsi. Normal metatarsophalangeal joint of the great toe. Normal tibial and fibular sesamoid bones. Normal interphalangeal joint of the great toe. Normal second through fifth metatarsophalangeal joints. Normal interphalangeal joints and phalanges of the lesser toes. Soft tissue defect of the distal aspect of the first digit the worrisome for an ulcer with surrounding soft tissue swelling. Destruction of the tuft of the first distal phalanx worrisome for osteomyelitis per RAD/Foot min 3 Views IMPRESSION: Suspect cellulitis of the first digit with an ulcer and osteomyelitis of the tuft of the first distal phalanx. Electronically Signed: Glen Gutiérrez MD at 16:16 EST Tel , Service support ,
[2020-07-14 16:24] LABS: Absolute Lymphocyte Count 1.02 X10^3/uL (0.83-4.51); Absolute Neutrophil Count 8.9 X10^3/uL (2.0-7.7); Basophil# 0.05 X10^3/uL; Basophil% 0.4 % (0-1); Eosinophil# 0.25 X10^3/uL; Eosinophils% 2.2 % (0-5); Lymphocyte # 1.02 X10^3/ul (4.0); Lymphocyte % 9.1 % (19-41); Mean Corp Hgb Conc 32.4 g/dL (32-36); Mean Corpuscular Hgb 31.3 pg (27.0-32.0); Mean Corpuscular Volume 96.6 fL (80-94); Mean Platelet Vol. 9.7 fl (6.2-12.0); Monocyte# 0.92 X10^3/uL; Monocyte% 8.2 % (0-10); NRBC Flagged by Analyzer 0 % (0-5); Neutrophil # 8.87 X10^3/uL (2.7-7.7); Neutrophil % 79.5 % (47-70); Platelet Count 245 K/mm3 (150-450); RBC Distribution Width CV 14.2 % (11.6-14.6); RBC Distribution Width SD 50.1 fl (35.1-43.9); Red Blood Count 3.52 M/mm3 (4.6-6.2); White Blood Count 11.2 K/mm3 (4.4-11.0)
--- NOTE | 2020-07-14 16:29 | ED.DCSUM_ITS ---
- ER Visit Summary Date of Service: 07/14/20 Chief Complaint: Left great toe infection History of Present Illness: The patient is a 74 M presenting with left great toe infection. Patient was sent in by podiatry today. He has been on Bactrim for the past week. He has continually worsening redness and swelling to his left great toe. He has chronic paresthesias and minimal sensation in his feet. He denies fever or other complaints. Physical Examination: Vitals are stable. Patient is afebrile. Alert no acute distress. HEENT exam is unremarkable. Neck is supple. Lungs are clear and equal bilaterally. Heart is regular rate and rhythm. Abdomen is soft nontender nondistended. Extremities left great toe erythema and swelling with ulcerated wound. Skin is warm and dry. Remainder of exam is unremarkable. Emergency Department Course and Treatment: CBC shows white count 11.2, hemoglobin 11.0. Left foot x-ray read by myself and radiology shows suspect cellulitis of the first digit with an ulcer and osteomyelitis of the tuft of the first distal phalanx. Chemistries show BUN 64, creatinine 3.92. Previous creatinine 1.4. CRP 17.4. ESR 16. Patient was given cefepime IV. Wound culture was sent. Discussed with the hospitalist for admission. Disposition: Admission Impression: Left great toe osteomyelitis, DELVIS This note was generated with [employer] dictation software. It may contain incorrect words, spelling, and punctuation that were not noted in review of the chart prior to signing ED Disposition - Plan for ED Patient: Referrals: Fany Hobson DO [Primary Care Provider] -
[2020-07-14 16:53] LABS: Erythrocyte Sedimentation Rate 16 mm/hr (0-20)
[2020-07-14 17:03] LABS: Anion Gap 5 (5-15); BUN 64 mg/dL (7-18); BUN/Creat Ratio 16.3 RATIO (10-20); Calcium,Total 9.6 mg/dL (8.5-10.1); Chloride 104 mmol/L (98-107); Creatinine, Serum 3.92 mg/dL (0.70-1.30); EST Glomerular Filtration Rate 16 mL/min (>60); Est Glom Filt Rate - Afr Amer 19 mL/min (>60); Estimated Creatinine Clearance 17.07 ml/min; Glucose 103 mg/dL (74-106); Potassium 4.5 mmol/L (3.5-5.1); Sodium Level 139 mmol/L (136-145)
[2020-07-14 18:14] VITALS: BP 121/64; PULSE 67; PULSE 73; RESP 18; TEMP 35.8; O2SAT 100
--- NOTE | 2020-07-14 18:22 | PCM.HP.STD ---
History of Present Illness Date of Admission: 07/14/20 Chief Complaint: Sent in by podiatry for his left toe infection The patient is a 74 year old M with a PMH as below presents to the hospital with a left toe infection. He has been followed by his net mender for this issue and today it looked worse with some cellulitis surrounding the toe as well as going up into the ankle. He denies any fevers or chills but his creatinine is bumped to 3.92, his baseline is 1.2. X-ray of the foot demonstrates cellulitis as well as osteomyelitis. He was given a dose of cefepime in the ER and the wound was cultured. Otherwise he states that he feels fine, he developed the ulcer from peripheral neuropathy due to his diabetes. Past Medical History Past Medical History (Chronic Problems): Chronic Problems (Last Reviewed 06/29/20 @ 14:40 by Page Hopkins RN) Multiple premature ventricular complexes (Chronic) Atherosclerosis of coronary artery of [place] heart without angina pectoris (Chronic) H/O coronary artery bypass surgery (Chronic 02/14/06) CABG x 2 HERRERA-LAD, SVG-OM 02/14/2006 Longstanding persistent atrial fibrillation (Chronic) Benign essential hypertension (Chronic) Hyperlipidemia (Chronic) Right ventricular dilation, secondary (Chronic) Right ventricular systolic dysfunction (Chronic) Iron deficiency anemia due to chronic blood loss (Chronic) Gastric AVMs, September 2017 Secondary pulmonary arterial hypertension (Chronic) 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 (Chronic) HBEER (obstructive sleep apnea) (Chronic) Respiratory failure with hypoxia (Chronic) Polyp of colon, adenomatous (Chronic) Diverticular disease (Chronic) Medical History: Medical History (Last Reviewed 06/29/20 @ 14:40 by Page Hopkins RN) Multiple premature ventricular complexes (Chronic) I49.49 Atherosclerosis of coronary artery of [place] heart without angina pectoris (Chronic) I25.10 NSTEMI (non-ST elevated myocardial infarction) (Resolved) Onset Date: 12/02/19 I21.4 09/2017, 05/2018, 06/2019, 11/2019 Longstanding persistent atrial fibrillation (Chronic) I48.11 Benign essential hypertension (Chronic) I10 Hyperlipidemia (Chronic) E78.5 Right ventricular dilation, secondary (Chronic) I51.7 Right ventricular systolic dysfunction (Chronic) I51.9 Iron deficiency anemia due to chronic blood loss (Chronic) D50.0 Gastric AVMs, September 2017 Secondary pulmonary arterial hypertension (Chronic) I27.21 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 (Chronic) C34.12 HEBER (obstructive sleep apnea) (Chronic) G47.33 Respiratory failure with hypoxia (Chronic) J96.91 Polyp of colon, adenomatous (Chronic) D12.6 Diverticular disease (Chronic) K57.90 Adenocarcinoma of lung, stage 1 C34.90 Cancer of upper lobe of left lung C34.12 Chronic gastritis K29.50 Dementia F03.90 Essential tremor G25.0 GERD (gastroesophageal reflux disease) K21.9 GI bleed K92.2 tsferred to [facility], transfused with 2 units PRBC's. Gastric AVM Q27.33 Parkinsons G20 Alcohol dependence F10.20 Pneumonia J18.9 Sepsis A41.9 Severe sepsis A41.9, R65.20 Acute kidney injury N17.9 Sepsis A41.9 Allergies No Known Allergies Allergy (Verified 07/14/20 15:13) Home Medications: Ambulatory Orders Medication Instructions Recorded Folic Acid 1 mg PO DAILY@1200 05/06/13 Pramipexole Di-HCl [Mirapex] 0.5 mg PO TID 12/04/16 docusate sodium 100 mg capsule 100 mg PO BID cap 10/20/17 Ferrous Sulfate [Iron] 65 mg PO DAILY 02/01/19 cholecalciferol (vitamin D3) 125 5,000 unit PO DAILY 03/30/19 mcg (5,000 unit) capsule Tamsulosin HCl [Flomax] 0.4 mg PO QHS 07/12/19 Omeprazole [Prilosec] 20 mg PO BID 09/03/19 Vit A/Vit C/Vit E/Zinc/Copper 1 ea PO BID 09/03/19 [Preservision Areds Tablet] fenofibrate nanocrystallized 145 145 mg PO LUNCH #90 tab 12/06/19 mg tablet furosemide 40 mg tablet 40 mg PO BID tab 12/16/19 gabapentin 600 mg tablet 1,200 mg PO QHS tab 12/16/19 metoprolol succinate 50 mg 50 mg PO DAILY 12/16/19 tablet,extended release 24 hr finasteride 5 mg tablet 5 mg PO DAILY@1200 12/22/19 losartan 50 mg tablet 50 mg PO BID #180 tab 02/24/20 spironolactone 25 mg tablet 25 mg PO DAILY #90 tab 02/25/20 Amlodipine Besylate [Norvasc] 5 mg PO DAILY 03/10/20 Cyanocobalamin [Vitamin B12] 1,000 mcg IM Q30D 03/10/20 fluticasone fur. 100 mcg-umeclid 1 inh INHALATION DAILY #3 ea 05/23/20 62.5 mcg-vilant 25 mcg inhalat.powder amiodarone 200 mg tablet 200 mg PO DAILY #30 tab 06/13/20 Aspirin E.C. [Ecotrin] 81 mg PO MOWEFR@0800 07/14/20 Metformin HCl [Metformin HCl ER] 500 mg PO DAILY 07/14/20 Pravastatin Sodium 40 mg PO QHS 07/14/20 Surgical History: Surgical History (Last Reviewed 06/29/20 @ 14:40 by Page Hopkins RN) History of coronary artery stent placement (Resolved) Onset Date: 12/23/06 Z95.5 FEE-SRF-NAUS anastomosis-LAD w/ Taxus 2.75 x 8 mm and POBA-PDA 12/23/2006 H/O coronary artery bypass surgery (Chronic) Onset Date: 02/14/06 Z95.1 CABG x 2 HERRERA-LAD, SVG-OM 02/14/2006 History of cardioversion Onset Date: 12/2016 Z98.890 Status post insertion of iliac artery stent Onset Date: 08/04/12 Z95.828 Bilateral iliac artery stents 08/04/12 History of colonoscopy Onset Date: 03/22/20 Z98.890 History of esophagogastroduodenoscopy Onset Date: 03/22/20 Z98.890 History of hammer toe correction Z98.890, Z87.39 bilateral History of left heart catheterization Onset Date: 05/10/13 Z98.890 History of lobectomy of lung Z90.2 left History of open reduction and internal fixation (ORIF) procedure Z98.890 right History of open reduction and internal fixation (ORIF) procedure Z98.890 right elbow with nerve transplant History of right and left heart catheterization Onset Date: 12/04/16 Z98.890 History of tonsillectomy and adenoidectomy Z98.890 Status post surgical removal of neoplasm of skin Z98.890 right side of neck/jaw Surgical History: coronary bypass surgery Psychiatric History: No pertinent psych hx Smoking Status: Former smoker Tobacco Use: Cigarettes Alcohol: None Drugs: None - *Family History Maternal Family History: Family History (Last Reviewed 06/29/20 @ 14:40 by Page Hopkins RN) Sister Alcoholism Cancer Mother Arthritis Father Arthritis Brother Cancer History Items: No pertinent history Paternal Family History: Family History (Last Reviewed 06/29/20 @ 14:40 by Page Hopkins RN) Sister Alcoholism Cancer Mother Arthritis Father Arthritis Brother Cancer History Items: No pertinent history Review of Systems Constitutional: Denies: Chills, Fever, Weight Change HEENT: Denies: Head Aches, Sinus Congestion, Sinus Drainage Cardiovascular: Denies: Chest Pain, Palpitations Respiratory: Denies: Cough, Shortness of breath at rest, Sputum production Gastrointestinal: Denies: Abdominal Pain, Nausea, Vomiting Genitourinary: Denies: Dysuria Musculoskeletal: Denies: Joint Pain, Joint Tenderness Skin: Reports: Wounds - Left great toe. Denies: Rash Neurological: Denies: Numbness, Tingling, Focal weakness Psychiatric: Denies: Anxiety, Depression Hematologic/ Lymphatic: Denies: Easy Bruising, Easy Bleeding VTE Information - Inpt Only VTE Present on Admission: No - Physical Exam Vitals/I&O's: Vital Signs Temp Pulse Resp BP Pulse Ox 96.5 F L 73 18 121/64 H 100 07/14/20 18:14 07/14/20 18:14 07/14/20 18:14 07/14/20 18:14 07/14/20 18:14 Oxygen Flow Rate (L/min) 4 Oxygen Delivery Method Room Air Weight: 285 lb Body Mass Index (BMI) 40.8 Finger Stick Blood Glucose 121 General: Alert, Oriented x3, Cooperative, No apparent distress HEENT: Atraumatic, PERRLA, EOMI, Normocephalic Oral: Moist Mucosa Neck: Supple, No JVD Lungs: Clear to auscultation, Normal air movement, No rhonchi, No wheeze, No rales Cardiovascular: Regular rate, Regular Rhythm, Normal S1, Normal S2, No murmurs Abdomen: Soft, Non Tender, Non-Distended, No Hepato-splenomegaly, Obese Extremities: Capillary Refill Less than 3 Seconds, Edema Skin: Ulcer/ Wound - Distal left great toe with drainage and surrounding cellulitis Neurological: Neuro grossly intact, - - Diminished sensation bilaterally in his lower extremities, chronic Psych/Mental Status: Normal Affect, Appropriate Laboratory Results 07/14/20 16:10: WBC 11.2 H, RBC 3.52 L, Hgb 11.0 L, Hct 34.0 L, MCV 96.6 H, MCH 31.3, MCHC 32.4, RDW Std Deviation 50.1 H, RDW Coeff of Iram 14.2, Plt Count 245, MPV 9.7, Immature Gran % (Auto) 0.600, Neut % (Auto) 79.5 H, Lymph % (Auto) 9.1 L, Clarke % (Auto) 8.2, Eos % (Auto) 2.2, Baso % (Auto) 0.4, Absolute Neuts (auto) 8.9 H, Absolute Lymphs (auto) 1.02, Nucleated RBC % 0, ESR 16 07/14/20 16:10: Sodium 139, Potassium 4.5, Chloride 104, Carbon Dioxide 30.0, Anion Gap 5, BUN 64 H, Creatinine 3.92 H, Estim Creat Clear Calc 17.07, Est GFR (MDRD) Af Amer 19 L, Est GFR (MDRD) Non-Af 16 L, BUN/Creatinine Ratio 16.3, Glucose 103, Calcium 9.6, C-React Prot Ext Range 17.40 H Assessment/Plan All Active Problems (Last Reviewed 06/29/20 @ 14:40 by Page Hopkins RN) NSTEMI (non-ST elevated myocardial infarction) (Resolved 12/02/19) History of coronary artery stent placement (Resolved 12/23/06) Complicated urinary tract infection (Resolved) UTI (urinary tract infection) (Resolved) 1. 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/morbid obesity/DELVIS -Consult podiatry for surgical intervention possible amputation -Culture obtained in the ED -Given his renal function, will try to culture for MRSA and if positive then and vancomycin otherwise we will continue with just cefepime for now -Discussed lifestyle modifications, BMI is over 40 -Continue with Accu-Cheks AC at bedtime as well as 10 scale insulin, will hold his oral Metformin -The DELVIS probably a combination of the infection and his Bactrim that he had been on for a week -CRP is elevated to 17.4, if no amputation is is obtained then will consult infectious disease 2. CAD status post CABG and stents/HTN/HLD/A. fib -Blood pressures are stable and his heart rate is normal -Continue with his amiodarone and Norvasc -We will hold his Lasix, Aldactone, and losartan secondary to his DELVIS -Continue with metoprolol and pravastatin -He had been on Xarelto for his A. fib however this was discontinued due to a chronic GI bleed. He has had multiple endoscopies without finding the source -Globin is 11, will continue to monitor 3. GERD -Stable -Continue with PPI 4. BPH -Stable -Continue with Flomax DVT: Heparin Inpatient E&M: 37984 Init Hosp L3
[2020-07-14 19:09] VITALS: RESP 18; O2SAT 97
[2020-07-14 19:29] VITALS: BMI 40.6
[2020-07-14] MEDS: 0.9% Normal Saline 1,000 ML 100 ML IV (19:36)
--- NOTE | 2020-07-14 19:46 | CON.PCM_ITS ---
Reason for Consult Date of Consultation: 07/14/20 Reason for Consultation: Left 1st toe infection History of Present Illness: The patient is a 74 year old gentleman with many medical problems on many medications. He has an infection to the left 1st toe - down to bone. Xrays positive for osteomyelitis to the distal phalanx 1st toe. He has been treated with Bactrim for a week. He presented back to clinic today with worsening infection. He was sent for admission. Patient agreeable for 1st toe amputation. His creatinine is elevated w/ DELVIS, WBC is at 11.2. Patient has been started on IV antibiotic. He has diagnosis of diabetes, however patient relates he did not think he had diabetes. Patient also has peripheral neuropathy. He is resting comfortably in bed, no complaints of fever, chills, nausea or vomiting. Patient relates he walks like a duck - relates this is chronic. Past Medical History Past Medical History (Chronic Problems): Chronic Problems (Last Reviewed 06/29/20 @ 14:40 by Page Hopkins RN) Multiple premature ventricular complexes (Chronic) Atherosclerosis of coronary artery of [place] heart without angina pectoris (Chronic) H/O coronary artery bypass surgery (Chronic 02/14/06) CABG x 2 HERRERA-LAD, SVG-OM 02/14/2006 Longstanding persistent atrial fibrillation (Chronic) Benign essential hypertension (Chronic) Hyperlipidemia (Chronic) Right ventricular dilation, secondary (Chronic) Right ventricular systolic dysfunction (Chronic) Iron deficiency anemia due to chronic blood loss (Chronic) Gastric AVMs, September 2017 Secondary pulmonary arterial hypertension (Chronic) 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 (Chronic) HEBER (obstructive sleep apnea) (Chronic) Respiratory failure with hypoxia (Chronic) Polyp of colon, adenomatous (Chronic) Diverticular disease (Chronic) Medical History: Medical History (Last Reviewed 06/29/20 @ 14:40 by Page Hopkins RN) Multiple premature ventricular complexes (Chronic) I49.49 Atherosclerosis of coronary artery of [place] heart without angina pectoris (Chronic) I25.10 NSTEMI (non-ST elevated myocardial infarction) (Resolved) Onset Date: 12/02/19 I21.4 09/2017, 05/2018, 06/2019, 11/2019 Longstanding persistent atrial fibrillation (Chronic) I48.11 Benign essential hypertension (Chronic) I10 Hyperlipidemia (Chronic) E78.5 Right ventricular dilation, secondary (Chronic) I51.7 Right ventricular systolic dysfunction (Chronic) I51.9 Iron deficiency anemia due to chronic blood loss (Chronic) D50.0 Gastric AVMs, September 2017 Secondary pulmonary arterial hypertension (Chronic) I27.21 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 (Chronic) C34.12 HEBER (obstructive sleep apnea) (Chronic) G47.33 Respiratory failure with hypoxia (Chronic) J96.91 Polyp of colon, adenomatous (Chronic) D12.6 Diverticular disease (Chronic) K57.90 Adenocarcinoma of lung, stage 1 C34.90 Cancer of upper lobe of left lung C34.12 Chronic gastritis K29.50 Dementia F03.90 Essential tremor G25.0 GERD (gastroesophageal reflux disease) K21.9 GI bleed K92.2 tsferred to [facility], transfused with 2 units PRBC's. Gastric AVM Q27.33 Parkinsons G20 Alcohol dependence F10.20 Pneumonia J18.9 Sepsis A41.9 Severe sepsis A41.9, R65.20 Acute kidney injury N17.9 Sepsis A41.9 Allergies No Known Allergies Allergy (Verified 07/14/20 15:13) Home Medications: Ambulatory Orders Medication Instructions Recorded Folic Acid 1 mg PO DAILY@1200 05/06/13 Pramipexole Di-HCl [Mirapex] 0.5 mg PO TID 12/04/16 docusate sodium 100 mg capsule 100 mg PO BID cap 10/20/17 Ferrous Sulfate [Iron] 65 mg PO DAILY 02/01/19 cholecalciferol (vitamin D3) 125 5,000 unit PO DAILY 03/30/19 mcg (5,000 unit) capsule Tamsulosin HCl [Flomax] 0.4 mg PO QHS 07/12/19 Omeprazole [Prilosec] 20 mg PO BID 09/03/19 Vit A/Vit C/Vit E/Zinc/Copper 1 ea PO BID 09/03/19 [Preservision Areds Tablet] fenofibrate nanocrystallized 145 145 mg PO LUNCH #90 tab 12/06/19 mg tablet furosemide 40 mg tablet 40 mg PO BID tab 12/16/19 gabapentin 600 mg tablet 1,200 mg PO QHS tab 12/16/19 metoprolol succinate 50 mg 50 mg PO DAILY 12/16/19 tablet,extended release 24 hr finasteride 5 mg tablet 5 mg PO DAILY@1200 12/22/19 losartan 50 mg tablet 50 mg PO BID #180 tab 02/24/20 spironolactone 25 mg tablet 25 mg PO DAILY #90 tab 02/25/20 Amlodipine Besylate [Norvasc] 5 mg PO DAILY 03/10/20 Cyanocobalamin [Vitamin B12] 1,000 mcg IM Q30D 03/10/20 fluticasone fur. 100 mcg-umeclid 1 inh INHALATION DAILY #3 ea 05/23/20 62.5 mcg-vilant 25 mcg inhalat.powder amiodarone 200 mg tablet 200 mg PO DAILY #30 tab 06/13/20 Aspirin E.C. [Ecotrin] 81 mg PO MOWEFR@0800 07/14/20 Metformin HCl [Metformin HCl ER] 500 mg PO DAILY 07/14/20 Pravastatin Sodium 40 mg PO QHS 07/14/20 Surgical History: Surgical History (Last Reviewed 06/29/20 @ 14:40 by Page Hopkins RN) History of coronary artery stent placement (Resolved) Onset Date: 12/23/06 Z95.5 [id number]-[id number] anastomosis-LAD w/ Taxus 2.75 x 8 mm and POBA-PDA 12/23/2006 H/O coronary artery bypass surgery (Chronic) Onset Date: 02/14/06 Z95.1 CABG x 2 HERRERA-LAD, SVG-OM 02/14/2006 History of cardioversion Onset Date: 12/2016 Z98.890 Status post insertion of iliac artery stent Onset Date: 08/04/12 Z95.828 Bilateral iliac artery stents 08/04/12 History of colonoscopy Onset Date: 03/22/20 Z98.890 History of esophagogastroduodenoscopy Onset Date: 03/22/20 Z98.890 History of hammer toe correction Z98.890, Z87.39 bilateral History of left heart catheterization Onset Date: 05/10/13 Z98.890 History of lobectomy of lung Z90.2 left History of open reduction and internal fixation (ORIF) procedure Z98.890 right History of open reduction and internal fixation (ORIF) procedure Z98.890 right elbow with nerve transplant History of right and left heart catheterization Onset Date: 12/04/16 Z98.890 History of tonsillectomy and adenoidectomy Z98.890 Status post surgical removal of neoplasm of skin Z98.890 right side of neck/jaw Surgical History: coronary bypass surgery Psychiatric History: No pertinent psych hx Smoking Status: Former smoker Tobacco Use: Cigarettes Alcohol: None Drugs: None - *Family History Maternal Family History: Family History (Last Reviewed 06/29/20 @ 14:40 by Page Hopkins RN) Sister Alcoholism Cancer Mother Arthritis Father Arthritis Brother Cancer History Items: No pertinent history Paternal Family History: Family History (Last Reviewed 06/29/20 @ 14:40 by Page Hopkins RN) Sister Alcoholism Cancer Mother Arthritis Father Arthritis Brother Cancer History Items: No pertinent history Review of Systems Constitutional: Denies: Chills, Fever Gastrointestinal: Denies: Nausea, Vomiting Musculoskeletal: Denies: Foot Pain Skin: Reports: Wounds Neurological: Reports: Numbness - Physical Exam Vitals/I&O's: Vital Signs Temp Pulse Resp BP Pulse Ox 96.5 F L 73 18 121/64 H 100 07/14/20 18:14 07/14/20 18:14 07/14/20 18:14 07/14/20 18:14 07/14/20 18:14 Oxygen Flow Rate (L/min) 4 Oxygen Delivery Method Room Air Weight: 128.367 kg Body Mass Index (BMI) 40.6 Finger Stick Blood Glucose 121 Intake and Output for Last 24 Hours 07/12/20 07/13/20 07/14/20 23:59 23:59 23:59 Intake Total 50 / 50 Balance 50 / 50 General: Alert, Oriented x3, Cooperative, No apparent distress Extremities: No cyanosis, Capillary Refill Less than 3 Seconds, No Calf Tenderness, Peripheral Pulses Normal - no evidence of acute ischemia to the foot or ankle bilateral., - - Left 1st toe with distal tip ulceration down to bone - there is cellulitis to the 1st toe, there is some erythema to the ankle, there is drainage from the 1st toe c/w infection, no other open lesions bilateral foot/ankle. No blistering, no visible abscess to any other areas of the foot/ankle bilater Skin: - - No evidence of gas to the left foot. Musculoskeletal: No Tenderness to Palpation of Joints or Extremities - to the foot or ankle bilateral., - - contracture of all toes left foot, pes planus as well - chronic Laboratory Results 07/14/20 16:10: WBC 11.2 H, RBC 3.52 L, Hgb 11.0 L, Hct 34.0 L, MCV 96.6 H, MCH 31.3, MCHC 32.4, RDW Std Deviation 50.1 H, RDW Coeff of Iram 14.2, Plt Count 245, MPV 9.7, Immature Gran % (Auto) 0.600, Neut % (Auto) 79.5 H, Lymph % (Auto) 9.1 L, Lyman % (Auto) 8.2, Eos % (Auto) 2.2, Baso % (Auto) 0.4, Absolute Neuts (auto) 8.9 H, Absolute Lymphs (auto) 1.02, Nucleated RBC % 0, ESR 16 07/14/20 16:10: Sodium 139, Potassium 4.5, Chloride 104, Carbon Dioxide 30.0, Anion Gap 5, BUN 64 H, Creatinine 3.92 H, Estim Creat Clear Calc 17.07, Est GFR (MDRD) Af Amer 19 L, Est GFR (MDRD) Non-Af 16 L, BUN/Creatinine Ratio 16.3, Glucose 103, Calcium 9.6, C-React Prot Ext Range 17.40 H Current Medications Acetaminophen (Acetaminophen 325 Mg Tablet) 650 mg PO Q6H PRN PRN PRN Reason: Pain Score 1-10/Temp > 100.7 F Amiodarone HCl (Amiodarone 200 Mg Tablet) 200 mg PO DAILY [facility] Amlodipine Besylate (Amlodipine 5 Mg Tablet) 5 mg PO DAILY [facility] Aspirin (Aspirin E.C. 81 Mg Tablet) 81 mg PO MOWEFR@0800 [facility] Cyanocobalamin (Cyanocobalamin (B12) 1,000 Mcg/Ml Vial) 1,000 mcg IM Q30D [facility] Dextrose (Dextrose 50%-Water 25 Gm/50 Ml Disp.Syrin) 0 gm IV X1 PRN; Protocol PRN Reason: Hypoglycemia Docusate Sodium (Docusate Sodium 100 Mg Capsule) 100 mg PO BID@1200,2200 [facility] Ferrous Sulfate (Ferrous Sulfate 325 Mg Tablet) 325 mg PO DAILY@1200 [facility] Finasteride (Finasteride 5 Mg Tablet) 5 mg PO DAILY@1200 [facility] Folic Acid (Folic Acid 1 Mg Tablet) 1 mg PO DAILY@1200 [facility] Glucagon (Glucagon 1 Mg/Ml Syringe) 1 mg IM .X1 PRN PRN Reason: Hypoglycemia Heparin Sodium (Porcine) (Heparin Injection (Vial) 5,000 Unit/Ml Vial) 5,000 unit SC Q8 NATAL[facility] Sodium Chloride () 1,000 mls @ 100 mls/hr IV .Q10H [facility] Last Admin: 07/14/20 19:36 Dose: 100 mls/hr Documented by: Cefepime HCl 1 gm/ Sodium (Chloride) 50 mls @ 100 mls/hr IV Q24 [facility] Insulin Human Lispro (Insulin Lispro 100 Unit/Ml Insuln.Pen) 0 unit SC ACHS NATALIE; Protocol Melatonin (Melatonin 3 Mg Tablet) 3 mg PO QHS PRN PRN PRN Reason: INSOMNIA Metoprolol Succinate (Metoprolol(Xl)Succ 50 Mg Tablet) 50 mg PO DAILY [facility] Nutritional Formula (Lactose Free) (Glucerna Shake 120 Ml Liquid) 120 ml PO 4X/DAY [facility] Ondansetron HCl (Ondansetron 4 Mg/2 Ml Vial) 4 mg IV Q8H PRN PRN PRN Reason: NAUSEA/VOMITING Pantoprazole Sodium (Pantoprazole Sodium 20 Mg Tablet) 20 mg PO BID [facility] Pramipexole Dihydrochloride (Pramipexole Di-Hcl 0.5 Mg Tablet) 0.5 mg PO TID [facility] Pravastatin Sodium (Pravastatin 40 Mg Tablet) 40 mg PO QHS [facility] Tamsulosin HCl (Tamsulosin Hcl 0.4 Mg Capsule) 0.4 mg PO QHS [facility] Assessment/Plan All Active Problems (Last Reviewed 06/29/20 @ 14:40 by Page Hopkins RN) NSTEMI (non-ST elevated myocardial infarction) (Resolved 12/02/19) History of coronary artery stent placement (Resolved 12/23/06) Complicated urinary tract infection (Resolved) UTI (urinary tract infection) (Resolved) Left 1st toe ulcer down to necrotic bone with osteomyelitis Left foot/ankle cellulitis Diabetes with peripheral neuropathy DELVIS, many comorbidities Reviewed diagnotic data. Reviewed left foot xrays from today - evidence of osteomyelitis to the distal tuft of the distal phalanx 1st toe left foot. Discussed options with patient and he would like to proceed with 1st toe amputation. We discussed procedure, possible benefits vs risks, goals and expectations. Discussed with Dr. Burdick who is on board with proceeding with us proceeding with amp surgery tomorrow am. Patient NPO after midnight. Cultures have been obtained and pending. Patient has been started on IV antibiotics. No weightbearing left foot. Keep left foot elevated. New LEAS were ordered for further evaluation of lower extremity arterial flow. No current evidence of significant PAD clinically, no acute ischemia to the foot or ankle bilateral. Discussed with patient's as well, per ok from patient. Diabetes, DELVIS and patient's other medical problems managed by medicine team. Podiatry will continue to follow closely.
[2020-07-14 19:57] VITALS: BMI 40.6
[2020-07-14 20:02] VITALS: BP 107/48; PULSE 62; RESP 16; TEMP 36.6; O2SAT 97
--- NOTE | 2020-07-14 20:03 | ART_ITS ---
Reason For Study: Ulcer Procedure A bilateral lower extremity continuous wave Doppler with analog waveform analysis,segmental pressures,and ankle brachial indexes without exercise. Left Segmental Pressures Left brachial= 151mmHg. Left thigh = >254mmHg. Left calf = 142mmHg. Left posterior tibial artery = 141mmHg. Left dorsalis pedis artery = 128mmHg. The left dorsalis pedis waveforms are biphasic. The left posterior tibial artery waveforms are biphasic. Right Segmental Pressures Right brachial= 153mmHg. Right thigh = >254mmHg. Right calf = 140mmHg. Right posterior tibial artery = 143mmHg. Right dorsalis pedis artery = 130mmHg. The right dorsalis pedis waveforms are biphasic. The right posterior tibial artery waveforms are biphasic. Indices The right ankle brachial index by the dorsalis pedis is 0.85. The right ankle brachial index by the posterior tibial artery is 0.93. The left ankle brachial index by the dorsalis pedis is 0.84. The left ankle brachial index by the posterior tibial artery is 0.92. Interpretation Summary Artificially elevated right low thigh systolic pressure greater than 255 making calculation of index not possible and suggestive of calcification of vessel. Abnormal right PT and DP ankle-brachial index of 0.93 and 0.85 respectively with biphasic Doppler waveforms consistent with moderately severe occlusive disease Digital waveforms on the right appear flattened consistent with severe small vessel disease. Artificially elevated left low thigh systolic pressure greater than 254 making calculation of index not possible and suggested of calcification of vessel. Abnormal left PT and DP ankle-brachial indices of 0.92 and 0.84 with biphasic left posterior tibial and dorsalis pedis waveforms consistent with moderately severe arterial occlusive disease Digital volume pulse recordings are present Ordering Physician: Fredi Rojas Referring Physician: Fany Hobson D.O. Performed By: Kaylee Haynes RVT
[2020-07-14 21:41] LABS: M R Staph aureus DNA By PCR Negative (Negative); Probe Check PASS; Specimen Processing Control PASS; Staph aureus DNA By PCR NEGATIVE (Negative)
[2020-07-14 22:06] VITALS: PULSE 67
[2020-07-14] MEDS: Docusate Sodium 100 MG Capsule PO (22:21)
[2020-07-14] MEDS: Pramipexole Di-HCl 0.5 MG Tablet PO (22:22)
[2020-07-14] MEDS: Tamsulosin HCl 0.4 MG Capsule PO (22:22)
[2020-07-14] MEDS: Pravastatin 40 MG Tablet PO (22:23)
[2020-07-14] MEDS: Pantoprazole Sodium 20 MG Tablet PO (22:24)
[2020-07-14] MEDS: Insulin Lispro 100 UNIT/ML INSULN.PEN SC (22:32)
[2020-07-14 22:35] LABS: Bedside Glucose 175 mg/dL (70-110)
[2020-07-14] MEDS: Glucerna Shake 120 ML LIQUID PO (22:35)
[2020-07-14] MEDS: CLARIFY ORDER NOTE (22:37)
[2020-07-15] VITALS (22 sets, daily range): BP systolic 93–134; BP diastolic 48–62; PULSE 53–78; RESP 16–24; TEMP 36.1–36.4; O2SAT 94–100; BMI 40.6
--- NOTE | 2020-07-15 | AMP_PTH ---
PATIENT: JV DURHAM Jr. LOC: MS3 U#:[id number] AGE/SX: 74/M ROOM: [facility] [place] RE07/14/[address]: Dr. Janell Vázquez MD : 1945 BED: 1 DIS: 07/18/2020 SPEC #: [id number] RECD: 07/17/20 07:40 STATUS: ELIZABETH REQ #: [id number] ROXANA: 07/15/20 00:[address]: Fredi Rojas DEPT: SURGICAL PATHOLOGY RECD BY: Antwon Vasquez ENTERED: 07/17/20 11:00 SP TYPE: Amputation OTHR DR: MD Dr. Fany Sheldon DO Dr. Kelly Kubiak, GILBERTOM MD Dr. Jv Richardson MD Tissues: A - Bone of foot, NOS B - Bone of foot, NOS Procedures: Decalcification bone/plaque Surgery Specimen Level IV Comments: @ Ordering doctor for DEC edited from to @ by CARLOS at 07/17/20 132 @ Ordering doctor for SUIII edited from to @ by CARLOS at 07/17/20 1327 @ Submitting doctor edited from to @ by CARLOS at 07/17/207 HEADER OPERATION: Amputation toe/foot PRE-OP DIAGNOSIS: Osteomyelitis TISSUE SUBMITTED: A - Amputated first toe, B - Clearance fragment MICROSCOPIC DIAGNOSIS A. First toe, amputation: Skin with ulceration and associated acute and chronic inflammation. Bone with acute osteomyelitis. B. Clearance fragment bone, first toe, excision: Bone with no evidence of osteomyelitis. AM:armando 07/20/2020 MICROSCOPIC DESCRIPTION Slides are reviewed. GROSS DESCRIPTION A - Received in fixative is one container labeled with the patient's name and designated amputated first toe. The specimen consists of multiple irregular fragments of light pink-leary soft tissue ranging in size from <0.1 to 5 cm. Also present in the container is a distal toe with attached bone, soft tissue and skin measuring 5.5 cm in length and 3.3 cm in diameter. The nail is partially avulsed. The peripheral portion of the soft tissue contains an ulcer measuring 1.5 x 0.5 cm. The bone and soft of margin of resection are grossly unremarkable. [employer] sections of toe with ulcer and underlying bone are submitted in cassettes 1-3 after decalcification. [employer] sections of the other fragments of tissue are submitted in cassette 4. B - Received in fixative is one container labeled with the patient's name and designated clearance fragment. The specimen consists of a discoid fragment of leary bone measuring 2 x 1.6 x 0.3 cm. The specimen is submitted in its entirety in one cassette after decalcification. / TIM:armando 07/17/20 TC:2 CPT: 00531 x2, 34265 x2
--- NOTE | 2020-07-15 05:00 | EKG12_ITS ---
Test Reason : AM EKG Blood Pressure : / mmHG Vent. Rate : 070 BPM Atrial Rate : 048 BPM P-R Int : 000 ms QRS Dur : 100 ms QT Int : 406 ms P-R-T Axes : 000 -45 045 degrees QTc Int : 438 ms Atrial fibrillation Left axis deviation Abnormal ECG When compared with ECG of 02-DEC-2019 13:18, ST no longer depressed in Lateral leads QT has lengthened Confirmed by SUNIL CLEARY, TATI ([id number]), assistant film editor HODA CRABTREE ([id number]) on 07/18/2020 8:45:14 AM Referred By: KANDI Confirmed By:TATI BARBER MD
[2020-07-15] MEDS: 0.9% Normal Saline 1,000 ML 100 ML IV ×2 (06:31→15:17)
[2020-07-15 07:05] LABS: Bedside Glucose 93 mg/dL (70-110)
[2020-07-15 07:38] LABS: Absolute Lymphocyte Count 0.89 X10^3/uL (0.83-4.51); Absolute Neutrophil Count 6.4 X10^3/uL (2.0-7.7); Basophil# 0.03 X10^3/uL; Basophil% 0.4 % (0-1); Eosinophil# 0.29 X10^3/uL; Eosinophils% 3.4 % (0-5); Hematocrit 30.4 % (40-54); Hemoglobin 9.8 g/dL (13.0-16.5); Lymphocyte # 0.89 X10^3/ul (4.0); Lymphocyte % 10.5 % (19-41); Mean Corp Hgb Conc 32.2 g/dL (32-36); Mean Corpuscular Volume 96.2 fL (80-94); Mean Platelet Vol. 9.6 fl (6.2-12.0); Monocyte# 0.87 X10^3/uL; Monocyte% 10.3 % (0-10); NRBC Flagged by Analyzer 0 % (0-5); Neutrophil # 6.35 X10^3/uL (2.7-7.7); Neutrophil % 74.9 % (47-70); Platelet Count 210 K/mm3 (150-450); RBC Distribution Width CV 13.9 % (11.6-14.6); RBC Distribution Width SD 49.4 fl (35.1-43.9); Red Blood Count 3.16 M/mm3 (4.6-6.2); White Blood Count 8.5 K/mm3 (4.4-11.0)
[2020-07-15 07:50] LABS: Anion Gap 8 (5-15); BUN 57 mg/dL (7-18); BUN/Creat Ratio 18.8 RATIO (10-20); Calcium,Total 9.2 mg/dL (8.5-10.1); Chloride 109 mmol/L (98-107); Creatinine, Serum 3.04 mg/dL (0.70-1.30); EST Glomerular Filtration Rate 22 mL/min (>60); Est Glom Filt Rate - Afr Amer 26 mL/min (>60); Estimated Creatinine Clearance 22.01 ml/min; Glucose 92 mg/dL (74-106); Potassium 4.5 mmol/L (3.5-5.1); Sodium Level 142 mmol/L (136-145)
--- NOTE | 2020-07-15 07:51 | PN_ITS ---
Reason for Visit: Left great toe infection Subjective: Patient is a 74-year-old gentleman who was sent to the ED by podiatry with inf ection involving the left great toe imaging studies obtained demonstrated suspected cellulitis involving the first digit with an ulcer and osteomyelitis of the tuft of the first distal phalanx Objective: GENERAL: cooperative HEENT: Atraumatic; EYES; Anicteric, Normal Conjunctiva NECK; supple, normal thyroid, RESPIRATORY: Diminished to auscultation CARDIOVASCULAR: Regular S1 S2, GI: soft, normoactive bowel sounds, : No Renal angle tenderness; EXTREMITIES: Left great toe ulceration MUSCULOSKELETAL: no muscle waisting NEURO: Awake; no lateralizing signs. SKIN: No Rash PSYCH; Flat affect Vitals/I&O's: Vital Signs Temp Pulse Resp BP Pulse Ox 97.6 F L 63 18 109/50 L 99 07/15/20 07:45 07/15/20 07:45 07/15/20 07:45 07/15/20 07:45 07/15/20 07:45 Oxygen Flow Rate (L/min) 4 Oxygen Delivery Method Nasal Cannula Weight: 128.3 kg Body Mass Index (BMI) 40.6 Finger Stick Blood Glucose 121 Intake and Output for Last 24 Hours 07/13/20 07/14/20 07/15/20 23:59 23:59 23:59 Intake Total 50 / 850 1800 / 1800 Output Total 750 / 750 Balance 50 / 100 1050 / 1050 Laboratory Results 07/14/20 16:10: WBC 11.2 H, RBC 3.52 L, Hgb 11.0 L, Hct 34.0 L, MCV 96.6 H, MCH 31.3, MCHC 32.4, RDW Std Deviation 50.1 H, RDW Coeff of Iram 14.2, Plt Count 245, MPV 9.7, Immature Gran % (Auto) 0.600, Neut % (Auto) 79.5 H, Lymph % (Auto) 9.1 L, Schley % (Auto) 8.2, Eos % (Auto) 2.2, Baso % (Auto) 0.4, Absolute Neuts (auto) 8.9 H, Absolute Lymphs (auto) 1.02, Nucleated RBC % 0, ESR 16 07/14/20 16:10: Sodium 139, Potassium 4.5, Chloride 104, Carbon Dioxide 30.0, Anion Gap 5, BUN 64 H, Creatinine 3.92 H, Estim Creat Clear Calc 17.07, Est GFR (MDRD) Af Amer 19 L, Est GFR (MDRD) Non-Af 16 L, BUN/Creatinine Ratio 16.3, Glucose 103, Calcium 9.6, C-React Prot Ext Range 17.40 H 07/14/20 20:08: S.aureus Protein A PCR NEGATIVE, MRSA (PCR) Negative 07/14/20 22:26: POC Glucose 175 H 07/15/20 06:21: POC Glucose 93 07/15/20 07:25: Sodium 142, Potassium 4.5, Chloride 109 H, Carbon Dioxide 25.0, Anion Gap 8, BUN 57 H, Creatinine 3.04 H, Estim Creat Clear Calc 22.01, Est GFR (MDRD) Af Amer 26 L, Est GFR (MDRD) Non-Af 22 L, BUN/Creatinine Ratio 18.8, Glucose 92, Calcium 9.2 07/15/20 07:25: WBC 8.5, RBC 3.16 L, Hgb 9.8 L, Hct 30.4 L, MCV 96.2 H, MCH 31.0, MCHC 32.2, RDW Std Deviation 49.4 H, RDW Coeff of Iram 13.9, Plt Count 210, MPV 9.6, Immature Gran % (Auto) 0.500, Neut % (Auto) 74.9 H, Lymph % (Auto) 10.5 L, Schley % (Auto) 10.3 H, Eos % (Auto) 3.4, Baso % (Auto) 0.4, Absolute Neuts (auto) 6.4, Absolute Lymphs (auto) 0.89, Nucleated RBC % 0 07/15/20 07:25: PT Pending, INR Pending, APTT Pending 07/15/20 07:25: Total Bilirubin Pending, Direct Bilirubin Pending, AST Pending, ALT Pending, Alkaline Phosphatase Pending, Total Protein Pending, Albumin Pending Current Medications Acetaminophen (Acetaminophen 325 Mg Tablet) 650 mg PO Q6H PRN PRN PRN Reason: Pain Score 1-10/Temp > 100.7 F Amiodarone HCl (Amiodarone 200 Mg Tablet) 200 mg PO DAILY [facility] Amlodipine Besylate (Amlodipine 5 Mg Tablet) 5 mg PO DAILY [facility] Aspirin (Aspirin E.C. 81 Mg Tablet) 81 mg PO MOWEFR@0800 [facility] Cyanocobalamin (Cyanocobalamin (B12) 1,000 Mcg/Ml Vial) 1,000 mcg IM Q30D@1000 [facility] Dextrose (Dextrose 50%-Water 25 Gm/50 Ml Disp.Syrin) 0 gm IV X1 PRN; Protocol PRN Reason: Hypoglycemia Docusate Sodium (Docusate Sodium 100 Mg Capsule) 100 mg PO BID@1200,2200 [facility] Last Admin: 07/14/20 22:21 Dose: 100 mg Documented by: Ferrous Sulfate (Ferrous Sulfate 325 Mg Tablet) 325 mg PO DAILY@1200 [facility] Finasteride (Finasteride 5 Mg Tablet) 5 mg PO DAILY@1200 [facility] Folic Acid (Folic Acid 1 Mg Tablet) 1 mg PO DAILY@1200 [facility] Glucagon (Glucagon 1 Mg/Ml Syringe) 1 mg IM .X1 PRN PRN Reason: Hypoglycemia Heparin Sodium (Porcine) (Heparin Injection (Vial) 5,000 Unit/Ml Vial) 5,000 unit SC Q8 [facility] Last Admin: 07/15/20 05:19 Dose: Not Given Documented by: Sodium Chloride () 1,000 mls @ 100 mls/hr IV .Q10H [facility] Last Admin: 07/15/20 06:31 Dose: 100 mls/hr Documented by: Cefepime HCl 1 gm/ Sodium (Chloride) 50 mls @ 100 mls/hr IV Q24 [facility] Insulin Human Lispro (Insulin Lispro 100 Unit/Ml Insuln.Pen) 0 unit SC ACHS [facility]; Protocol Last Admin: 07/15/20 06:32 Dose: Not Given Documented by: Melatonin (Melatonin 3 Mg Tablet) 3 mg PO QHS PRN PRN PRN Reason: INSOMNIA Metoprolol Succinate (Metoprolol(Xl)Succ 50 Mg Tablet) 50 mg PO DAILY [facility] Nutritional Formula (Lactose Free) (Glucerna Shake 120 Ml Liquid) 120 ml PO 4X/DAY [facility] Last Admin: 07/14/20 22:35 Dose: 120 ml Documented by: Ondansetron HCl (Ondansetron 4 Mg/2 Ml Vial) 4 mg IV Q8H PRN PRN PRN Reason: NAUSEA/VOMITING Pantoprazole Sodium (Pantoprazole Sodium 20 Mg Tablet) 20 mg PO BID [facility] Last Admin: 07/14/20 22:24 Dose: 20 mg Documented by: Pramipexole Dihydrochloride (Pramipexole Di-Hcl 0.5 Mg Tablet) 0.5 mg PO TID [facility] Last Admin: 07/15/20 05:19 Dose: Not Given Documented by: Pravastatin Sodium (Pravastatin 40 Mg Tablet) 40 mg PO QHS [facility] Last Admin: 07/14/20 22:23 Dose: 40 mg Documented by: Tamsulosin HCl (Tamsulosin Hcl 0.4 Mg Capsule) 0.4 mg PO QHS [facility] Last Admin: 07/14/20 22:22 Dose: 0.4 mg Documented by: STROKE Vital Signs/Narrative: Vital Signs Temp Pulse Resp BP Pulse Ox 07/15/20 07:45 97.6 F L 63 18 109/50 L 99 07/15/20 07:44 97.6 F L 63 18 109/50 L 99 07/15/20 04:05 70 Medical Necessity - Tobacco Use Smoking Status: Former smoker Tobacco Use: Cigarettes Assessment/Plan All Active Problems (Last Reviewed 06/29/20 @ 14:40 by Page Hopkins RN) NSTEMI (non-ST elevated myocardial infarction) (Resolved 12/02/19) History of coronary artery stent placement (Resolved 12/23/06) Complicated urinary tract infection (Resolved) UTI (urinary tract infection) (Resolved) Patient is a 74-year-old gentleman who was sent to the ED by podiatry with infection involving the left great toe imaging studies obtained demonstrated suspected cellulitis involving the first digit with an ulcer and osteomyelitis of the tuft of the first distal phalanx 1. Left great toe osteomyelitis and cellulitis ?Patient has been admitted to regular nursing floor started on broad-spectrum biotic therapy per protocol with consultation placed to podiatry. Cultures were sent 2. Acute kidney injury ?. Creatinine on 02/23/2020 was 1.24, on 04/17/2020 was 1.41 creatinine on admission was 3.92. Potential nephrotoxic medications discontinued started on IV fluid with subsequent monitoring of electrolytes 3. Diabetes mellitus type II -patient's oral hypoglycemics held. -Placed on long acting insulin, Accu-Cheks a.c. and at bedtime and covered with sliding scale insulin 4. Dyslipidemia -Patient is on statin and fenofibrate therapy, continued at home dose 5. Hypertension - Blood pressure controlled, home medications continued with dose adjustment as needed 6. BPH ?Patient is on tamsulosin and finasteride continued 7. Diabetic polyneuropathy ?Patient is on gabapentin continued 8. Coronary artery disease ?CABG x 2 HERRERA-LAD, SVG-OM 02/14/2006 9. Obstructive sleep apnea 10. Lung CA?adenocarcinoma ?Involving the left upper lung lobe; Patient was treated with left upper lobe wedge resection with subsequent chemotherapy. Patient follows up with oncology as outpatient 11. Paroxysmal A. fib A. fib ?Rate controlled on on amiodarone 12. Morbid obesity - With a BMI of 40.6 patient was counseled on weight reduction 13. Peripheral arterial disease - with history of Bilateral iliac artery stents 08/04/12 Advance planning; did discuss with the patient regarding advanced directives as well as CODE STATUS. Did explain the various scenarios involved ( FULL CODE, DNR CCA, DNR CCA with no intubation, and DNR CC and what each meant) patient and both opted for patient to remain full code with intubation and CPR if needed . Order was placed. Time spent on discussion 18 minutes. Inpatient E&M: 22067 [facility] [[email or web address]] Hosp L3 Procedures: 67337 Advncd Care Plan 30 Min
[2020-07-15 07:55] LABS: AST(SGOT) 18 U/L (15-37); Alanine Aminotransfer ALT/SGPT 14 U/L (16-61); Albumin, Serum 3.1 g/dL (3.2-5.0); Alkaline Phosphatase 47 U/L (45-117); Bilirubin, Direct 0.24 mg/dL (0.00-0.30); Globulin 3.4 g/dL (2.2-4.2); Protein, Total 6.5 g/dL (6.4-8.2)
[2020-07-15 07:59] LABS: International Normalized Ratio 1.3
[2020-07-15 08:00] LABS: Partial Thromboplast Time 35.2 Seconds (24.1-36.2)
[2020-07-15] MEDS: Bupivacaine Mpf 0.5% 30 ML VIAL (08:30)
--- NOTE | 2020-07-15 09:01 | OP.PCM_ITS ---
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 Amputated 1st toe (left) sent to pathology with bone culture from distal phalanx sent to microbiology. 2. Clearance fragment 1st toe (left) sent to microbiology and pathology Description of Procedure: Indications: The patient is a 74 year old male with multiple medical problems who presented with left 5th toe ulceration with necrosis down to bone, and significant cellulitis to the 1st toe left foot. We discussed the options with the patient in great detail, and patient elected to proceed with the procedure. This was discussed with him in detail, reviewed the possible benefits vs risks. They were advised the risks include, but are not limited to pain, further i nfections, need for further surgery, nonhealing, delay healing, scarring, poor cosmetic result, numbness, weakness, loss of function, complex regional pain syndrome, blood clots, loss of limb, loss of life. They expressed understanding and agreement, they were able to repeat back, all questions were answered. The consent form was reviewed and it was freely signed. No guarantees were given nor implied. Operative Procedure: The patient was brought into the operating room, and was place on the operating room table in the supine position. He was carefully secured to the operating room table with a safely belt around his waist. A time out was performed, the patient was properly identified and the surgical plan was confirmed. He was already on IV antibiotics. A well padded pneumatic tourniquet was placed around the left ankle. The patient received MAC anesthesia per the anesthesiologist, then a total of 10mL of 0.5% Marcaine plain was given as a left foot 1st ray block after the skin was cleansed with 70% isopropyl alcohol. The left foot was scrubbed, prepped and draped in the usual aseptic fashion. The left foot was elevated for exsanguination, and the left ankle pneumatic tourniquet was inflated to 250mmHg. There was noted to be significant necrosis down to bone of the 1st toe with drainage, edema and maloder consistent with infection. The 1st toe was also noted to be significantly contracted and deformed consistent with a hammer toe. Using a 15 scalpel blade a incision was made around the 1st toe and all nonviable, necrotic, infected soft tissue and bone was debrided and removed, this entailed having to remove the majority of the 1st toe at the level of the proximal shaft/base of the hallux proximal phalanx. The distal phalanx and even of head of the proximal phalanx of the 1st toe was noted to be nonviable, soft, with areas of yellow/black and dolan discoloration consistent with osteomyelitis - distal phalanx much worse than the head of the proximal phalanx. There was also purulence in the soft tissues of the toe with chronic abscess formation. All nonviable bone and soft tissue was debrided in excisional fashion. A bone culture was obtained from the toe and was sent to microbiology for further evaluation. The removed tissue was sent to pathology for further evaluation as well. The site was flushed out with copious amounts of normal saline solution. The remaining bone of proximal phalanx of the 1st toe was visualized and appeared hard, white, healthy and viable. Using a powered sagittal saw a piece of the bone was resected from the residual proximal phalanx 1st toe and it was sent to microbiology and pathology as a clearance fragment. All remaining tissues appeared to be healthy and viable, free of any infection. The site was again flushed out with copious amounts of normal saline solution. A flap was created with the remaining viable skin using a 15 blade, the skin edges were brought together and were reapproximated using 3-0 Prolene. The pneumatic tourniquet was deflated, and there was immediate return of good vascular flow to the left foot, with normal temperature gradient and CFT < 2 seconds to the amputation site and to all remaining toes. Total tourniquet time was 24 minutes. A dressing was applied which consisted of Betadine soaked adaptic, 4x4 gauze, Kerlix and jayne dressing. Patient tolerated the above procedure well with no complications. He was transferred back to the floor with vital signs stable and in good condition. He will be followed as inpatient. Post op xrays were ordered of the left foot - these were reviewed which confirmed 1st toe debridement/removal. No weightbearing left foot, keep left foot elevated. Grafts/Implants Used: None - Complications None
--- NOTE | 2020-07-15 09:15 | RAD_ITS ---
STUDY: X-RAY - LEFT FOOT CLINICAL: Male, 74 years old. POST OP PORTABLE LEFT GREAT TOE AMPUTATION. TECHNIQUE: 3 view(s) of the foot. COMPARISON: 07/14/2020 FINDINGS: Normal talus, calcaneus, and tarsal bones. Normal visualized subtalar, talonavicular, calcaneocuboid, tarsal and tarsometatarsal articulations. Normal metatarsi. Normal metatarsophalangeal joint of the great toe. Normal tibial and fibular sesamoid bones. Interval amputation of the first digit just to the base of the proximal phalanx. Normal second through fifth metatarsophalangeal joints. Normal interphalangeal joints and phalanges of the lesser toes. The soft tissue structures are unremarkable. RAD/Foot min 3 Views IMPRESSION: Interval amputation of the first digit through the base of the proximal phalanx. Electronically Signed: Glen Gutiérrez MD at 10:00 EST Tel , Service support ,
[2020-07-15] MEDS: amLODIPine 5 MG Tablet PO (09:59)
[2020-07-15] MEDS: Amiodarone 200 MG Tablet PO (09:59)
[2020-07-15] MEDS: Metoprolol(XL)Succ 50 MG Tablet PO (09:59)
[2020-07-15] MEDS: Pantoprazole Sodium 20 MG Tablet PO ×2 (09:59→21:49)
[2020-07-15] MEDS: Multivitamin (Healthy Eyes) Capsule 1 CAP PO ×2 (10:04→21:54)
[2020-07-15] MEDS: Glucerna Shake 120 ML LIQUID PO ×4 (10:05→21:54)
[2020-07-15 13:00] LABS: Bedside Glucose 123 mg/dL (70-110)
[2020-07-15] MEDS: Ipratropium/Albuterol Sulfate 3 ML AMPUL.NEB INHALATION ×2 (13:10→20:06)
[2020-07-15] MEDS: Docusate Sodium 100 MG Capsule PO ×2 (13:11→21:48)
[2020-07-15] MEDS: Folic Acid 1 MG Tablet PO (13:11)
[2020-07-15] MEDS: Finasteride 5 MG Tablet PO (13:11)
[2020-07-15] MEDS: Ferrous Sulfate 325 MG Tablet PO (13:11)
[2020-07-15] MEDS: Heparin Injection (Vial) 5,000 UNIT/ML VIAL 5000 UNIT SC ×2 (13:12→21:54)
[2020-07-15] MEDS: Pramipexole Di-HCl 0.5 MG Tablet PO ×2 (13:12→21:48)
--- NOTE | 2020-07-15 13:41 | CM.UR ---
RN CM Assessment Introduced role of RN CM to patient.? Patient is alert, oriented and able?to participate in RN CM Assessment. ?Care providers, pharmacy, and demographics verified. Presentation: left great toe infection getting worse. Admit Dx: left great toe osteomyelitis. Had left great toe amputated this morning. Re-Admit: no Barriers/Issues: motivation PCP: Dr. Joce Otoole, [employer] at [place] Specialists: Dr. Rojas (podiatry); Dr. Graham (urology); goes to Neurology (same group Dr. Davis was in but new physician); Dr. Batista (cardiology), Dr. Storm (pulm); sees an oncologist at [facility] but he can't remember the name. Preferred Pharmacy: [facility]; [facility] Insurance: [employer]. Rx Benefit:? Yes. Denies any problems affording copays ?LNOK: , Ellen LW/HPOA: Yes, both in [place]. , Ellen is his Healthcare POA. Living Arrangements:? Lives with in 1 story home. States 1 step with rails from the garage into the house. ADL?s: Tries to remain independence but he is depending on more and more for assistance. Transportation: Self. States drives short distances. DME: Handicap bathroom with bench in shower; Has w/c that was his mother's however he doesn't really fit into it, CPAP, oxygen from [facility]. States on 2 liters at rest. States 4 liters with activity and while sleeping bled into cpap, Scooter, hospital bed. HHC: No. States will not allow home care to come into home--states she can take care of him. SNF: None. Goal: Home. DC PLAN: Home. Patient is asking for multiple things from [place]. States he [facility] Asking for a bariatric bed. Patient also asking for a wheelchair, preferably electric. States he has the scooter however he cannot fit it in the house. Concerned that a w/c big enough for him, won't fit through some of his door ways. States he is NWB on left foot and his right knee is bad, gives out on him. States needs right knee replaced but they won't do it because he is high risk. Recommended therapy to help him get stronger. Doesn't think he can do it. Instructed on the more he uses a w/c and/or scooter the weaker he will get d/t not using his muscles. Verb understanding. Alerted patient that case management will remain available should any needs arise. Verb understanding. Lorie Grant RN, CCM.
[2020-07-15] MEDS: Acetaminophen 325 MG Tablet 650 MG PO (15:17)
[2020-07-15 17:05] LABS: Bedside Glucose 102 mg/dL (70-110)
[2020-07-15] MEDS: Budesonide Respules 0.5 MG/2 ML AMPUL.NEB. INHALATION (20:06)
[2020-07-15] MEDS: Tamsulosin HCl 0.4 MG Capsule PO (21:48)
[2020-07-15] MEDS: Pravastatin 40 MG Tablet PO (21:49)
[2020-07-15 22:00] LABS: Bedside Glucose 103 mg/dL (70-110)
[2020-07-16] VITALS (14 sets, daily range): BP systolic 116–136; BP diastolic 47–64; PULSE 62–95; RESP 18–21; TEMP 36.6–37.2; O2SAT 94–100
[2020-07-16] MEDS: Acetaminophen 325 MG Tablet 650 MG PO ×3 (00:39→22:02)
[2020-07-16] MEDS: 0.9% Normal Saline 1,000 ML 100 ML IV ×3 (00:49→22:12)
[2020-07-16 05:17] LABS: Hematocrit 29.2 % (40-54); Hemoglobin 9.2 g/dL (13.0-16.5); Mean Corp Hgb Conc 31.5 g/dL (32-36); Mean Corpuscular Hgb 30.7 pg (27.0-32.0); Mean Corpuscular Volume 97.3 fL (80-94); Mean Platelet Vol. 9.8 fl (6.2-12.0); Platelet Count 193 K/mm3 (150-450); RBC Distribution Width CV 14.1 % (11.6-14.6); RBC Distribution Width SD 50.3 fl (35.1-43.9); White Blood Count 7.5 K/mm3 (4.4-11.0)
[2020-07-16 05:36] LABS: Anion Gap 3 (5-15); BUN 53 mg/dL (7-18); Calcium,Total 8.8 mg/dL (8.5-10.1); Chloride 109 mmol/L (98-107); Creatinine, Serum 2.52 mg/dL (0.70-1.30); EST Glomerular Filtration Rate 27 mL/min (>60); Est Glom Filt Rate - Afr Amer 32 mL/min (>60); Estimated Creatinine Clearance 26.55 ml/min; Glucose 92 mg/dL (74-106); Magnesium 2.4 mg/dL (1.6-2.6); Potassium 4.9 mmol/L (3.5-5.1); Sodium Level 139 mmol/L (136-145)
[2020-07-16] MEDS: Ipratropium/Albuterol Sulfate 3 ML AMPUL.NEB INHALATION ×3 (06:52→21:05)
[2020-07-16] MEDS: Budesonide Respules 0.5 MG/2 ML AMPUL.NEB. INHALATION (06:52)
[2020-07-16] MEDS: Pramipexole Di-HCl 0.5 MG Tablet PO ×3 (06:59→22:03)
[2020-07-16 07:00] LABS: Bedside Glucose 99 mg/dL (70-110)
[2020-07-16] MEDS: Heparin Injection (Vial) 5,000 UNIT/ML VIAL 5000 UNIT SC ×3 (07:00→22:09)
[2020-07-16] MEDS: 0.9% Saline Lock 10 ML Syringe IV (08:43)
[2020-07-16] MEDS: Metoprolol(XL)Succ 50 MG Tablet PO (08:43)
[2020-07-16] MEDS: Pantoprazole Sodium 20 MG Tablet PO ×2 (08:43→22:05)
[2020-07-16] MEDS: amLODIPine 5 MG Tablet PO (08:43)
[2020-07-16] MEDS: Multivitamin (Healthy Eyes) Capsule 1 CAP PO ×2 (08:44→22:05)
[2020-07-16] MEDS: Glucerna Shake 120 ML LIQUID PO ×4 (08:44→22:07)
[2020-07-16] MEDS: Amiodarone 200 MG Tablet PO (08:44)
--- NOTE | 2020-07-16 08:44 | PCM.PN.HOSP ---
Reason for Visit: Left great toe infection Subjective: Patient is a 74-year-old gentleman who was sent to the ED by podiatry with infection involving the left great toe imaging studies obtained demonstrated suspected cellulitis involving the first digit with an ulcer and osteomyelitis of the tuft of the first distal phalanx Underwent 1st toe amputation left foot on 07/15/[address] Rojas Objective: GENERAL: cooperative HEENT: Atraumatic; EYES; Anicteric, Normal Conjunctiva NECK; supple, normal thyroid, RESPIRATORY: Diminished to auscultation CARDIOVASCULAR: Regular S1 S2, GI: soft, normoactive bowel sounds, : No Renal angle tenderness; EXTREMITIES: Left foot in surgical dressing MUSCULOSKELETAL: no muscle waisting NEURO: Awake; no lateralizing signs. SKIN: No Rash PSYCH; Flat affect Vitals/I&O's: Vital Signs Temp Pulse Resp BP Pulse Ox 98.2 F 87 18 123/50 H 97 07/16/20 08:37 07/16/20 08:37 07/16/20 08:37 07/16/20 08:37 07/16/20 08:37 Oxygen Flow Rate (L/min) 4 Oxygen Delivery Method Nasal Cannula Weight: 128.3 kg Body Mass Index (BMI) 40.6 Finger Stick Blood Glucose 121 Intake and Output for Last 24 Hours 07/14/20 07/15/20 07/16/20 23:59 23:59 23:59 Intake Total 50 / 850 3378.33 / 3378.33 953.33 / 953.33 Output Total 1400 / 1700 900 / 900 Balance 50 / 100 1978.33 / 1678.33 53.33 / 53.33 Microbiology Past 72 Hours 07/15/20 09:00 Tissue - Toe Gram Stain - Final 07/15/20 09:00 Tissue - Toe Wound Culture - Preliminary No growth-Final to follow 07/14/20 17:45 Wound - Left Foot Gram Stain - Final 07/14/20 17:45 Wound - Left Foot Wound Culture - Preliminary Gram positive organism 07/15/20 09:00 Tissue - Toe Gram Stain - Final Laboratory Results 07/15/20 11:36: POC Glucose 123 H 07/15/20 16:52: POC Glucose 102 07/15/20 21:43: POC Glucose 103 07/16/20 05:05: WBC 7.5, RBC 3.00 L, Hgb 9.2 L, Hct 29.2 L, MCV 97.3 H, MCH 30.7, MCHC 31.5 L, RDW Std Deviation 50.3 H, RDW Coeff of Iram 14.1, Plt Count 193, MPV 9.8 07/16/20 05:05: Sodium 139, Potassium 4.9, Chloride 109 H, Carbon Dioxide 27.0, Anion Gap 3 L, BUN 53 H, Creatinine 2.52 H, Estim Creat Clear Calc 26.55, Est GFR (MDRD) Af Amer 32 L, Est GFR (MDRD) Non-Af 27 L, BUN/Creatinine Ratio 21.0 H, Glucose 92, Calcium 8.8, Magnesium 2.4 07/16/20 06:55: POC Glucose 99 Current Medications Acetaminophen (Acetaminophen 325 Mg Tablet) 650 mg PO Q6H PRN PRN PRN Reason: Pain Score 1-10/Temp > 100.7 F Last Admin: 07/16/20 00:39 Dose: 650 mg Documented by: Albuterol/Ipratropium (Ipratropium/Albuterol Sulfate 3 Ml Ampul.Neb) 3 ml INHALATION Q6HWA.RT [facility] Last Admin: 07/16/20 06:52 Dose: 3 ml Documented by: Amiodarone HCl (Amiodarone 200 Mg Tablet) 200 mg PO DAILY [facility] Last Admin: 07/15/20 09:59 Dose: 200 mg Documented by: Amlodipine Besylate (Amlodipine 5 Mg Tablet) 5 mg PO DAILY [facility] Last Admin: 07/15/20 09:59 Dose: 5 mg Documented by: Aspirin (Aspirin E.C. 81 Mg Tablet) 81 mg PO MOWEFR@0800 [facility] Budesonide (Budesonide Respules 0.5 Mg/2 Ml Ampul.Neb.) 0.5 mg INHALATION Q12H.RT [facility] Last Admin: 07/16/20 06:52 Dose: 0.5 mg Documented by: Cholecalciferol (Cholecalciferol (Vit D3) 1,000 Unit (25mcg)) 5,000 unit PO DAILY [facility] Last Admin: 07/15/20 10:05 Dose: 5,000 unit Documented by: Cyanocobalamin (Cyanocobalamin (B12) 1,000 Mcg/Ml Vial) 1,000 mcg IM Q30D@1000 [facility] Dextrose (Dextrose 50%-Water 25 Gm/50 Ml Disp.Syrin) 0 gm IV X1 PRN; Protocol PRN Reason: Hypoglycemia Docusate Sodium (Docusate Sodium 100 Mg Capsule) 100 mg PO BID@1200,2200 [facility] Last Admin: 07/15/20 21:48 Dose: 100 mg Documented by: Ferrous Sulfate (Ferrous Sulfate 325 Mg Tablet) 325 mg PO DAILY@1200 [facility] Last Admin: 07/15/20 13:11 Dose: 325 mg Documented by: Finasteride (Finasteride 5 Mg Tablet) 5 mg PO DAILY@1200 [facility] Last Admin: 07/15/20 13:11 Dose: 5 mg Documented by: Folic Acid (Folic Acid 1 Mg Tablet) 1 mg PO DAILY@1200 [facility] Last Admin: 07/15/20 13:11 Dose: 1 mg Documented by: Glucagon (Glucagon 1 Mg/Ml Syringe) 1 mg IM .X1 PRN PRN Reason: Hypoglycemia Heparin Sodium (Porcine) (Heparin Injection (Vial) 5,000 Unit/Ml Vial) 5,000 unit SC Q8 [facility] Last Admin: 07/16/20 07:00 Dose: 5,000 unit Documented by: Sodium Chloride () 1,000 mls @ 100 mls/hr IV .Q10H [facility] Last Admin: 07/16/20 00:49 Dose: 100 mls/hr Documented by: Cefepime HCl 1 gm/ Sodium (Chloride) 50 mls @ 100 mls/hr IV Q24 [facility] Last Infusion: 07/15/20 10:29 Dose: Infused Documented by: Insulin Human Lispro (Insulin Lispro 100 Unit/Ml Insuln.Pen) 0 unit SC ACHS [facility]; Protocol Last Admin: 07/16/20 07:00 Dose: Not Given Documented by: Melatonin (Melatonin 3 Mg Tablet) 3 mg PO QHS PRN PRN PRN Reason: INSOMNIA Metoprolol Succinate (Metoprolol(Xl)Succ 50 Mg Tablet) 50 mg PO DAILY [facility] Last Admin: 07/15/20 09:59 Dose: 50 mg Documented by: Multivitamins/Minerals (Multivitamin (Healthy Eyes) Capsule) 1 capsule PO BID [facility] Last Admin: 07/15/20 21:54 Dose: 1 capsule Documented by: Nutritional Formula (Lactose Free) (Glucerna Shake 120 Ml Liquid) 120 ml PO 4X/DAY [facility] Last Admin: 07/15/20 21:54 Dose: 120 ml Documented by: Ondansetron HCl (Ondansetron 4 Mg/2 Ml Vial) 4 mg IV Q8H PRN PRN PRN Reason: NAUSEA/VOMITING Pantoprazole Sodium (Pantoprazole Sodium 20 Mg Tablet) 20 mg PO BID [facility] Last Admin: 07/15/20 21:49 Dose: 20 mg Documented by: Pramipexole Dihydrochloride (Pramipexole Di-Hcl 0.5 Mg Tablet) 0.5 mg PO TID [facility] Last Admin: 07/16/20 06:59 Dose: 0.5 mg Documented by: Pravastatin Sodium (Pravastatin 40 Mg Tablet) 40 mg PO QHS [facility] Last Admin: 07/15/20 21:49 Dose: 40 mg Documented by: Sodium Chloride (0.9% Saline Lock 10 Ml Syringe) 10 - 40 ml IV UD PRN PRN Reason: SALINE FLUSH Tamsulosin HCl (Tamsulosin Hcl 0.4 Mg Capsule) 0.4 mg PO QHS [facility] Last Admin: 07/15/20 21:48 Dose: 0.4 mg Documented by: STROKE Vital Signs/Narrative: Vital Signs Temp Pulse Resp BP Pulse Ox 07/16/20 08:37 98.2 F 87 18 123/50 H 97 07/16/20 07:15 77 21 H 96 07/16/20 05:50 62 Medical Necessity - Tobacco Use Smoking Status: Former smoker Tobacco Use: Cigarettes Assessment/Plan All Active Problems (Last Reviewed 06/29/20 @ 14:40 by Page Hopkins RN) NSTEMI (non-ST elevated myocardial infarction) (Resolved 12/02/19) History of coronary artery stent placement (Resolved 12/23/06) Complicated urinary tract infection (Resolved) UTI (urinary tract infection) (Resolved) Patient is a 74-year-old gentleman who was sent to the ED by podiatry with infection involving the left great toe imaging studies obtained demonstrated suspected cellulitis involving the first digit with an ulcer and osteomyelitis of the tuft of the first distal phalanx 1. Left great toe osteomyelitis and cellulitis ?Patient has been admitted to regular nursing floor started on broad-spectrum biotic therapy per protocol with consultation placed to podiatry. Cultures were sent -07/16/2020 underwent 1st toe amputation left foot on 07/15/[address] Rojas blood culture sent awaiting identification and sensitivities 2. Acute kidney injury ?. Creatinine on 02/23/2020 was 1.24, on 04/17/2020 was 1.41 creatinine on admission was 3.92. Potential nephrotoxic medications discontinued started on IV fluid with subsequent monitoring of electrolytes -07/16/2020; kidney function improving 3. Diabetes mellitus type II -patient's oral hypoglycemics held. -Placed on long acting insulin, Accu-Cheks a.c. and at bedtime and covered with sliding scale insulin 4. Dyslipidemia -Patient is on statin and fenofibrate therapy, continued at home dose 5. Hypertension - Blood pressure controlled, home medications continued with dose adjustment as needed 6. BPH ?Patient is on tamsulosin and finasteride continued 7. Diabetic polyneuropathy ?Patient is on gabapentin continued 8. Coronary artery disease ?CABG x 2 HERRERA-LAD, SVG-OM 02/14/2006 9. Obstructive sleep apnea 10. Lung CA?adenocarcinoma ?Involving the left upper lung lobe; Patient was treated with left upper lobe wedge resection with subsequent chemotherapy. Patient follows up with oncology as outpatient 11. Paroxysmal A. fib A. fib ?Rate controlled on on amiodarone 12. Morbid obesity - With a BMI of 40.6 patient was counseled on weight reduction 13. Peripheral arterial disease - with history of Bilateral iliac artery stents 08/04/12 Inpatient E&M: [id number] [facility] [[email or web address]] Hosp L2
--- NOTE | 2020-07-16 09:36 | PCM.PROGNOTE ---
Subjective: Patient was seen this morning for follow up on left foot. He is resting comfortably in bed, no complaints at this time. No fever, chills, nausea or vomiting. - Physical Exam Vitals/I&O's: Vital Signs Temp Pulse Resp BP Pulse Ox 98.2 F 87 18 123/50 H 97 07/16/20 08:37 07/16/20 08:43 07/16/20 08:37 07/16/20 08:37 07/16/20 08:37 Oxygen Flow Rate (L/min) 4 Oxygen Delivery Method Nasal Cannula Weight: 128.3 kg Body Mass Index (BMI) 40.6 Finger Stick Blood Glucose 121 Intake and Output for Last 24 Hours 07/14/20 07/15/20 07/16/20 23:59 23:59 23:59 Intake Total 50 / 850 3378.33 / 3378.33 953.33 / 953.33 Output Total 1400 / 1700 900 / 900 Balance 50 / 100 1978.33 / 1678.33 53.33 / 53.33 General: Alert, Oriented x3, Cooperative, No apparent distress Extremities: Capillary Refill Less than 3 Seconds, No Calf Tenderness, - - s/p left 1st toe proximal amputation - site healing well, no evidence of complication, sutures intact, no drainage, no maloder, no necrosis - tissues are healthy and viable, cellulitis significantly improved, no POP or pain on ROM to the foot or ankle - left Microbiology Past 72 Hours 07/15/20 09:00 Tissue - Toe Gram Stain - Final 07/15/20 09:00 Tissue - Toe Wound Culture - Preliminary No growth-Final to follow 07/14/20 17:45 Wound - Left Foot Gram Stain - Final 07/14/20 17:45 Wound - Left Foot Wound Culture - Preliminary Gram positive organism 07/15/20 09:00 Tissue - Toe Gram Stain - Final Laboratory Results 07/15/20 11:36: POC Glucose 123 H 07/15/20 16:52: POC Glucose 102 07/15/20 21:43: POC Glucose 103 07/16/20 05:05: WBC 7.5, RBC 3.00 L, Hgb 9.2 L, Hct 29.2 L, MCV 97.3 H, MCH 30.7, MCHC 31.5 L, RDW Std Deviation 50.3 H, RDW Coeff of Iram 14.1, Plt Count 193, MPV 9.8 07/16/20 05:05: Sodium 139, Potassium 4.9, Chloride 109 H, Carbon Dioxide 27.0, Anion Gap 3 L, BUN 53 H, Creatinine 2.52 H, Estim Creat Clear Calc 26.55, Est GFR (MDRD) Af Amer 32 L, Est GFR (MDRD) Non-Af 27 L, BUN/Creatinine Ratio 21.0 H, Glucose 92, Calcium 8.8, Magnesium 2.4 07/16/20 06:55: POC Glucose 99 Current Medications Acetaminophen (Acetaminophen 325 Mg Tablet) 650 mg PO Q6H PRN PRN PRN Reason: Pain Score 1-10/Temp > 100.7 F Last Admin: 07/16/20 08:43 Dose: 650 mg Documented by: Albuterol/Ipratropium (Ipratropium/Albuterol Sulfate 3 Ml Ampul.Neb) 3 ml INHALATION Q6HWA.RT [facility] Last Admin: 07/16/20 06:52 Dose: 3 ml Documented by: Amiodarone HCl (Amiodarone 200 Mg Tablet) 200 mg PO DAILY [facility] Last Admin: 07/16/20 08:44 Dose: 200 mg Documented by: Amlodipine Besylate (Amlodipine 5 Mg Tablet) 5 mg PO DAILY [facility] Last Admin: 07/16/20 08:43 Dose: 5 mg Documented by: Aspirin (Aspirin E.C. 81 Mg Tablet) 81 mg PO MOWEFR@0800 [facility] Budesonide (Budesonide Respules 0.5 Mg/2 Ml Ampul.Neb.) 0.5 mg INHALATION Q12H.RT [facility] Last Admin: 07/16/20 06:52 Dose: 0.5 mg Documented by: Cholecalciferol (Cholecalciferol (Vit D3) 1,000 Unit (25mcg)) 5,000 unit PO DAILY [facility] Last Admin: 07/16/20 08:44 Dose: 5,000 unit Documented by: Cyanocobalamin (Cyanocobalamin (B12) 1,000 Mcg/Ml Vial) 1,000 mcg IM Q30D@1000 [facility] Dextrose (Dextrose 50%-Water 25 Gm/50 Ml Disp.Syrin) 0 gm IV X1 PRN; Protocol PRN Reason: Hypoglycemia Docusate Sodium (Docusate Sodium 100 Mg Capsule) 100 mg PO BID@1200,2200 [facility] Last Admin: 07/15/20 21:48 Dose: 100 mg Documented by: Ferrous Sulfate (Ferrous Sulfate 325 Mg Tablet) 325 mg PO DAILY@1200 [facility] Last Admin: 07/15/20 13:11 Dose: 325 mg Documented by: Finasteride (Finasteride 5 Mg Tablet) 5 mg PO DAILY@1200 [facility] Last Admin: 07/15/20 13:11 Dose: 5 mg Documented by: Folic Acid (Folic Acid 1 Mg Tablet) 1 mg PO DAILY@1200 [facility] Last Admin: 07/15/20 13:11 Dose: 1 mg Documented by: Glucagon (Glucagon 1 Mg/Ml Syringe) 1 mg IM .X1 PRN PRN Reason: Hypoglycemia Heparin Sodium (Porcine) (Heparin Injection (Vial) 5,000 Unit/Ml Vial) 5,000 unit SC Q8 [facility] Last Admin: 07/16/20 07:00 Dose: 5,000 unit Documented by: Sodium Chloride () 1,000 mls @ 100 mls/hr IV .Q10H [facility] Last Admin: 07/16/20 00:49 Dose: 100 mls/hr Documented by: Cefepime HCl 1 gm/ Sodium (Chloride) 50 mls @ 100 mls/hr IV Q24 [facility] Last Infusion: 07/15/20 10:29 Dose: Infused Documented by: Insulin Human Lispro (Insulin Lispro 100 Unit/Ml Insuln.Pen) 0 unit SC ACHS [facility]; Protocol Last Admin: 07/16/20 07:00 Dose: Not Given Documented by: Melatonin (Melatonin 3 Mg Tablet) 3 mg PO QHS PRN PRN PRN Reason: INSOMNIA Metoprolol Succinate (Metoprolol(Xl)Succ 50 Mg Tablet) 50 mg PO DAILY [facility] Last Admin: 07/16/20 08:43 Dose: 50 mg Documented by: Multivitamins/Minerals (Multivitamin (Healthy Eyes) Capsule) 1 capsule PO BID [facility] Last Admin: 07/16/20 08:44 Dose: 1 capsule Documented by: Nutritional Formula (Lactose Free) (Glucerna Shake 120 Ml Liquid) 120 ml PO 4X/DAY [facility] Last Admin: 07/16/20 08:44 Dose: 120 ml Documented by: Ondansetron HCl (Ondansetron 4 Mg/2 Ml Vial) 4 mg IV Q8H PRN PRN PRN Reason: NAUSEA/VOMITING Pantoprazole Sodium (Pantoprazole Sodium 20 Mg Tablet) 20 mg PO BID [facility] Last Admin: 07/16/20 08:43 Dose: 20 mg Documented by: Pramipexole Dihydrochloride (Pramipexole Di-Hcl 0.5 Mg Tablet) 0.5 mg PO TID [facility] Last Admin: 07/16/20 06:59 Dose: 0.5 mg Documented by: Pravastatin Sodium (Pravastatin 40 Mg Tablet) 40 mg PO QHS [facility] Last Admin: 07/15/20 21:49 Dose: 40 mg Documented by: Sodium Chloride (0.9% Saline Lock 10 Ml Syringe) 10 - 40 ml IV UD PRN PRN Reason: SALINE FLUSH Last Admin: 07/16/20 08:43 Dose: 10 ml Documented by: Tamsulosin HCl (Tamsulosin Hcl 0.4 Mg Capsule) 0.4 mg PO QHS [facility] Last Admin: 07/15/20 21:48 Dose: 0.4 mg Documented by: Medical Necessity - Tobacco Use Smoking Status: Former smoker Tobacco Use: Cigarettes Assessment/Plan All Active Problems (Last Reviewed 06/29/20 @ 14:40 by Page Hopkins RN) NSTEMI (non-ST elevated myocardial infarction) (Resolved 12/02/19) History of coronary artery stent placement (Resolved 12/23/06) Complicated urinary tract infection (Resolved) UTI (urinary tract infection) (Resolved) Left 1st toe ulcer down to necrotic bone with osteomyelitis s/p amputation on 07/15/2020 Left foot/ankle cellulitis Diabetes with peripheral neuropathy DELVIS, many comorbidities Reviewed diagnostic data. Left 1st toe amp site healing well. Cultures have been obtained and pending. Patient on IV antibiotics. No weightbearing left foot, but ok to put partial weightbearing on left heel for transitions. Keep left foot elevated. New LEAS were ordered for further evaluation of lower extremity arterial flow. No current evidence of significant PAD clinically, no acute ischemia to the foot or ankle bilateral. Diabetes, DELVIS and patient's other medical problems managed by medicine team. Podiatry will continue to follow closely.
[2020-07-16] MEDS: Ferrous Sulfate 325 MG Tablet PO (11:38)
[2020-07-16] MEDS: Folic Acid 1 MG Tablet PO (11:38)
[2020-07-16] MEDS: Finasteride 5 MG Tablet PO (11:38)
[2020-07-16] MEDS: Docusate Sodium 100 MG Capsule PO ×2 (11:38→22:03)
[2020-07-16 11:45] LABS: Bedside Glucose 122 mg/dL (70-110)
[2020-07-16 16:55] LABS: Bedside Glucose 114 mg/dL (70-110)
[2020-07-16] MEDS: MELATONIN 3 MG TABLET PO (22:02)
[2020-07-16] MEDS: Pravastatin 40 MG Tablet PO (22:03)
[2020-07-16] MEDS: Tamsulosin HCl 0.4 MG Capsule PO (22:05)
[2020-07-16 22:20] LABS: Bedside Glucose 120 mg/dL (70-110)
[2020-07-17] VITALS (15 sets, daily range): BP systolic 127–144; BP diastolic 59–64; PULSE 62–88; RESP 16–20; TEMP 36.3–37.1; O2SAT 95–99
[2020-07-17 04:19] LABS: Hematocrit 29.6 % (40-54); Hemoglobin 9.5 g/dL (13.0-16.5); Mean Corp Hgb Conc 32.1 g/dL (32-36); Mean Corpuscular Hgb 31.1 pg (27.0-32.0); Mean Platelet Vol. 9.6 fl (6.2-12.0); Platelet Count 200 K/mm3 (150-450); RBC Distribution Width CV 14.2 % (11.6-14.6); RBC Distribution Width SD 50.2 fl (35.1-43.9); Red Blood Count 3.05 M/mm3 (4.6-6.2); White Blood Count 6.9 K/mm3 (4.4-11.0)
[2020-07-17 04:33] LABS: Anion Gap 3 (5-15); BUN 44 mg/dL (7-18); BUN/Creat Ratio 25.1 RATIO (10-20); Calcium,Total 9.1 mg/dL (8.5-10.1); Chloride 112 mmol/L (98-107); Creatinine, Serum 1.75 mg/dL (0.70-1.30); EST Glomerular Filtration Rate 41 mL/min (>60); Est Glom Filt Rate - Afr Amer 49 mL/min (>60); Estimated Creatinine Clearance 38.24 ml/min; Glucose 97 mg/dL (74-106); Potassium 4.8 mmol/L (3.5-5.1); Sodium Level 141 mmol/L (136-145)
[2020-07-17] MEDS: Pramipexole Di-HCl 0.5 MG Tablet PO ×3 (06:41→21:25)
[2020-07-17] MEDS: Heparin Injection (Vial) 5,000 UNIT/ML VIAL 5000 UNIT SC (06:42)
[2020-07-17 06:50] LABS: Bedside Glucose 93 mg/dL (70-110)
[2020-07-17] MEDS: Ipratropium/Albuterol Sulfate 3 ML AMPUL.NEB INHALATION ×3 (06:59→20:21)
[2020-07-17] MEDS: Budesonide Respules 0.5 MG/2 ML AMPUL.NEB. INHALATION ×2 (06:59→20:21)
--- NOTE | 2020-07-17 07:26 | PN_ITS ---
Subjective: This 74-year-old diabetic male was seen bedside status post left hallux amputation secondary to infection. He denies fever, chill, nausea, vomiting, surgical site pain, or calf pain. - Physical Exam Vitals/I&O's: Vital Signs Temp Pulse Resp BP Pulse Ox 97.4 F L 64 16 127/64 H 98 07/17/20 02:45 07/17/20 06:59 07/17/20 06:59 07/17/20 02:45 07/17/20 06:59 Oxygen Flow Rate (L/min) 4 Oxygen Delivery Method Nasal Cannula Weight: 128.3 kg Body Mass Index (BMI) 40.6 Finger Stick Blood Glucose 121 Intake and Output for Last 24 Hours 07/15/20 07/16/20 07/17/20 23:59 23:59 23:59 Intake Total 3378.33 / 3378.33 3953.33 / 3953.33 Output Total 1400 / 1700 1600 / 2225 1625 / 1625 Balance 1978.33 / 1678.33 2353.33 / 1728.33 -1625 / -1625 General: Alert, Oriented x3, Cooperative Extremities: No cyanosis, Capillary Refill Less than 3 Seconds, No Calf Tenderness - Negative Starkey sign bilateral, Diminished Peripheral Pulses, Edema Skin: Incision - Well aligned and coapted with no erythema, purulence, gapping, necrosis or infection. No bogginess or fluctuance Musculoskeletal: No Tenderness to Palpation of Joints or Extremities, Muscle Wasting Neurological: - - Lack of normal epicritic sensation consistent with a neuropathic status Psych/Mental Status: Normal Affect, Appropriate Microbiology Past 72 Hours 07/15/20 09:00 Tissue - Toe Gram Stain - Final 07/15/20 09:00 Tissue - Toe Wound Culture - Preliminary Gram Positive Cocci 07/14/20 17:45 Wound - Left Foot Gram Stain - Final 07/14/20 17:45 Wound - Left Foot Wound Culture - Preliminary Staphylococcus species 07/15/20 09:00 Tissue - Toe Gram Stain - Final 07/15/20 09:00 Tissue - Toe Wound Culture - Preliminary No growth-Final to follow Laboratory Results 07/16/20 11:35: POC Glucose 122 H 07/16/20 16:47: POC Glucose 114 H 07/16/20 22:14: POC Glucose 120 H 07/17/20 04:14: WBC 6.9, RBC 3.05 L, Hgb 9.5 L, Hct 29.6 L, MCV 97.0 H, MCH 31.1, MCHC 32.1, RDW Std Deviation 50.2 H, RDW Coeff of Iram 14.2, Plt Count 200, MPV 9.6 07/17/20 04:14: Sodium 141, Potassium 4.8, Chloride 112 H, Carbon Dioxide 26.0, Anion Gap 3 L, BUN 44 H, Creatinine 1.75 H, Estim Creat Clear Calc 38.24, Est GFR (MDRD) Af Amer 49 L, Est GFR (MDRD) Non-Af 41 L, BUN/Creatinine Ratio 25.1 H , Glucose 97, Calcium 9.1 07/17/20 06:37: POC Glucose 93 Current Medications Acetaminophen (Acetaminophen 325 Mg Tablet) 650 mg PO Q6H PRN PRN PRN Reason: Pain Score 1-10/Temp > 100.7 F Last Admin: 07/16/20 22:02 Dose: 650 mg Documented by: Albuterol/Ipratropium (Ipratropium/Albuterol Sulfate 3 Ml Ampul.Neb) 3 ml INHALATION Q6HWA.RT [facility] Last Admin: 07/17/20 06:59 Dose: 3 ml Documented by: Amiodarone HCl (Amiodarone 200 Mg Tablet) 200 mg PO DAILY [facility] Last Admin: 07/16/20 08:44 Dose: 200 mg Documented by: Amlodipine Besylate (Amlodipine 5 Mg Tablet) 5 mg PO DAILY [facility] Last Admin: 07/16/20 08:43 Dose: 5 mg Documented by: Aspirin (Aspirin E.C. 81 Mg Tablet) 81 mg PO MOWEFR@0800 [facility] Budesonide (Budesonide Respules 0.5 Mg/2 Ml Ampul.Neb.) 0.5 mg INHALATION Q12H.RT [facility] Last Admin: 07/17/20 06:59 Dose: 0.5 mg Documented by: Cholecalciferol (Cholecalciferol (Vit D3) 1,000 Unit (25mcg)) 5,000 unit PO DAILY [facility] Last Admin: 07/16/20 08:44 Dose: 5,000 unit Documented by: Cyanocobalamin (Cyanocobalamin (B12) 1,000 Mcg/Ml Vial) 1,000 mcg IM Q30D@1000 [facility] Dextrose (Dextrose 50%-Water 25 Gm/50 Ml Disp.Syrin) 0 gm IV X1 PRN; Protocol PRN Reason: Hypoglycemia Docusate Sodium (Docusate Sodium 100 Mg Capsule) 100 mg PO BID@1200,2200 [facility] Last Admin: 07/16/20 22:03 Dose: 100 mg Documented by: Ferrous Sulfate (Ferrous Sulfate 325 Mg Tablet) 325 mg PO DAILY@1200 [facility] Last Admin: 07/16/20 11:38 Dose: 325 mg Documented by: Finasteride (Finasteride 5 Mg Tablet) 5 mg PO DAILY@1200 [facility] Last Admin: 07/16/20 11:38 Dose: 5 mg Documented by: Folic Acid (Folic Acid 1 Mg Tablet) 1 mg PO DAILY@1200 [facility] Last Admin: 07/16/20 11:38 Dose: 1 mg Documented by: Glucagon (Glucagon 1 Mg/Ml Syringe) 1 mg IM .X1 PRN PRN Reason: Hypoglycemia Heparin Sodium (Porcine) (Heparin Injection (Vial) 5,000 Unit/Ml Vial) 5,000 unit SC Q8 [facility] Last Admin: 07/17/20 06:42 Dose: 5,000 unit Documented by: Sodium Chloride () 1,000 mls @ 100 mls/hr IV .Q10H [facility] Last Admin: 07/16/20 22:12 Dose: 100 mls/hr Documented by: Cefepime HCl 1 gm/ Sodium (Chloride) 50 mls @ 100 mls/hr IV Q24 [facility] Last Infusion: 07/16/20 10:55 Dose: Infused Documented by: Insulin Human Lispro (Insulin Lispro 100 Unit/Ml Insuln.Pen) 0 unit SC ACHS [facility]; Protocol Last Admin: 07/17/20 06:40 Dose: Not Given Documented by: Melatonin (Melatonin 3 Mg Tablet) 3 mg PO QHS PRN PRN PRN Reason: INSOMNIA Last Admin: 07/16/20 22:02 Dose: 3 mg Documented by: Metoprolol Succinate (Metoprolol(Xl)Succ 50 Mg Tablet) 50 mg PO DAILY [facility] Last Admin: 07/16/20 08:43 Dose: 50 mg Documented by: Multivitamins/Minerals (Multivitamin (Healthy Eyes) Capsule) 1 capsule PO BID [facility] Last Admin: 07/16/20 22:05 Dose: 1 capsule Documented by: Nutritional Formula (Lactose Free) (Glucerna Shake 120 Ml Liquid) 120 ml PO 4X/DAY [facility] Last Admin: 07/16/20 22:07 Dose: 120 ml Documented by: Ondansetron HCl (Ondansetron 4 Mg/2 Ml Vial) 4 mg IV Q8H PRN PRN PRN Reason: NAUSEA/VOMITING Pantoprazole Sodium (Pantoprazole Sodium 20 Mg Tablet) 20 mg PO BID [facility] Last Admin: 07/16/20 22:05 Dose: 20 mg Documented by: Pramipexole Dihydrochloride (Pramipexole Di-Hcl 0.5 Mg Tablet) 0.5 mg PO TID [facility] Last Admin: 07/17/20 06:41 Dose: 0.5 mg Documented by: Pravastatin Sodium (Pravastatin 40 Mg Tablet) 40 mg PO QHS [facility] Last Admin: 07/16/20 22:03 Dose: 40 mg Documented by: Sodium Chloride (0.9% Saline Lock 10 Ml Syringe) 10 - 40 ml IV UD PRN PRN Reason: SALINE FLUSH Last Admin: 07/16/20 08:43 Dose: 10 ml Documented by: Tamsulosin HCl (Tamsulosin Hcl 0.4 Mg Capsule) 0.4 mg PO QHS [facility] Last Admin: 07/16/20 22:05 Dose: 0.4 mg Documented by: Medical Necessity - Tobacco Use Smoking Status: Former smoker Tobacco Use: Cigarettes Assessment/Plan All Active Problems (Last Reviewed 06/29/20 @ 14:40 by Page Hopkins RN) NSTEMI (non-ST elevated myocardial infarction) (Resolved 12/02/19) History of coronary artery stent placement (Resolved 12/23/06) Complicated urinary tract infection (Resolved) UTI (urinary tract infection) (Resolved) Left 1st toe ulcer down to necrotic bone with osteomyelitis s/p amputation on 07/15/2020 w/ Dr. Rojas Left foot/ankle cellulitis resolved Diabetes with peripheral neuropathy DELVIS, many comorbidities Reviewed diagnostic data. He is afebrile with vital signs stable. He does not have leukocytosis; white blood cell count 6.9. Left hallux amputation site is healing well with resolution of local signs of infection. Cultures have been obtained and pending. So far there is gram-positive cocci growth to the clearance fragment. Pathology clearance fragment is pending. Per operation report, the amputation resection margin was clean without devitalized or infectious visualized. Patient on IV antibiotics (cefepime). I recommend starting at least 2 weeks antibiotic coverage for soft tissue envelope contamination and consider longer antibiotics and infectious disease consult if return of local infection or positive pathology clearance bone biopsy. No weightbearing left foot, but ok to put partial weightbearing on left heel for transitions with surgical shoe. Keep left foot elevated. I recommend he works with PT to confirm safe to return home with the assistance of his . Updated lower extremity arterial studies were ordered for further evaluation given his recurrent ulcer scenario. No current evidence of significant PAD clinically, no acute ischemia to the foot or ankle bilateral. These results are pending. Diabetes, DVT prophylaxis, DELVIS and patient's other medical problems managed by medicine team which is appreciated. Podiatry will continue to follow closely while in house. After discharge, to follow-up with Dr. [facility]. Please call if questions. Gloria Chatman DPM, [facility] [phone]
[2020-07-17] MEDS: Aspirin E.C. 81 MG Tablet PO (08:29)
[2020-07-17] MEDS: 0.9% Normal Saline 1,000 ML 100 ML IV (08:29)
--- NOTE | 2020-07-17 08:34 | PCM.PN.HOSP ---
Reason for Visit: Follow-up on acute left great toe osteomyelitis/status post amputation Subjective: Patient was seen and examined. No acute events overnight. He is eager to be discharged home. Patient later on ambulated with PT and OT and complains of some shortness of breath. IV fluids discontinued. He also complained of black-tarry stools. He is on oral iron. History of GI bleed. Heparin on hold. Denies any fever or chills. Objective: Physical exam: General: Alert, Oriented x3, Cooperative, No apparent distress HEENT: Atraumatic, PERRLA, EOMI, Normocephalic Oral: Moist Mucosa Neck: Supple, No JVD Lungs: Clear to auscultation Cardiovascular: Regular rate, Regular Rhythm, Normal S1, Normal S2, No murmurs Abdomen: Soft, Non Tender, Non-Distended, No Hepato-splenomegaly, Obese Extremities: Trace bilateral edema Skin: Dressing over the left foot grossly intact Neurological: Neuro grossly intact, - - Diminished sensation bilaterally in his lower extremities, chronic Psych/Mental Status: Normal Affect, Appropriate Vitals/I&O's: Vital Signs Temp Pulse Resp BP Pulse Ox 97.4 F L 64 16 127/64 H 98 07/17/20 02:45 07/17/20 06:59 07/17/20 06:59 07/17/20 02:45 07/17/20 06:59 Oxygen Flow Rate (L/min) 4 Oxygen Delivery Method Nasal Cannula Weight: 128.3 kg Body Mass Index (BMI) 40.6 Finger Stick Blood Glucose 121 Intake and Output for Last 24 Hours 07/15/20 07/16/20 07/17/20 23:59 23:59 23:59 Intake Total 3378.33 / 3378.33 3953.33 / 3953.33 1000 / 1000 Output Total 1400 / 1700 1600 / 2225 1625 / 1625 Balance 1978.33 / 1678.33 2353.33 / 1728.33 -625 / -625 Microbiology Past 72 Hours 07/15/20 09:00 Tissue - Toe Gram Stain - Final 07/15/20 09:00 Tissue - Toe Wound Culture - Preliminary Gram Positive Cocci 07/14/20 17:45 Wound - Left Foot Gram Stain - Final 07/14/20 17:45 Wound - Left Foot Wound Culture - Preliminary Staphylococcus species 07/15/20 09:00 Tissue - Toe Gram Stain - Final 07/15/20 09:00 Tissue - Toe Wound Culture - Preliminary No growth-Final to follow Laboratory Results 07/16/20 11:35: POC Glucose 122 H 07/16/20 16:47: POC Glucose 114 H 07/16/20 22:14: POC Glucose 120 H 07/17/20 04:14: WBC 6.9, RBC 3.05 L, Hgb 9.5 L, Hct 29.6 L, MCV 97.0 H, MCH 31.1, MCHC 32.1, RDW Std Deviation 50.2 H, RDW Coeff of Iram 14.2, Plt Count 200, MPV 9.6 07/17/20 04:14: Sodium 141, Potassium 4.8, Chloride 112 H, Carbon Dioxide 26.0, Anion Gap 3 L, BUN 44 H, Creatinine 1.75 H, Estim Creat Clear Calc 38.24, Est GFR (MDRD) Af Amer 49 L, Est GFR (MDRD) Non-Af 41 L, BUN/Creatinine Ratio 25.1 H, Glucose 97, Calcium 9.1 07/17/20 06:37: POC Glucose 93 Current Medications Acetaminophen (Acetaminophen 325 Mg Tablet) 650 mg PO Q6H PRN PRN PRN Reason: Pain Score 1-10/Temp > 100.7 F Last Admin: 07/16/20 22:02 Dose: 650 mg Documented by: Albuterol/Ipratropium (Ipratropium/Albuterol Sulfate 3 Ml Ampul.Neb) 3 ml INHALATION Q6HWA.RT [facility] Last Admin: 07/17/20 06:59 Dose: 3 ml Documented by: Amiodarone HCl (Amiodarone 200 Mg Tablet) 200 mg PO DAILY [facility] Last Admin: 07/16/20 08:44 Dose: 200 mg Documented by: Amlodipine Besylate (Amlodipine 5 Mg Tablet) 5 mg PO DAILY [facility] Last Admin: 07/16/20 08:43 Dose: 5 mg Documented by: Aspirin (Aspirin E.C. 81 Mg Tablet) 81 mg PO MOWEFR@0800 [facility] Last Admin: 07/17/20 08:29 Dose: 81 mg Documented by: Budesonide (Budesonide Respules 0.5 Mg/2 Ml Ampul.Neb.) 0.5 mg INHALATION Q12H.RT [facility] Last Admin: 07/17/20 06:59 Dose: 0.5 mg Documented by: Cholecalciferol (Cholecalciferol (Vit D3) 1,000 Unit (25mcg)) 5,000 unit PO DAILY [facility] Last Admin: 07/16/20 08:44 Dose: 5,000 unit Documented by: Cyanocobalamin (Cyanocobalamin (B12) 1,000 Mcg/Ml Vial) 1,000 mcg IM Q30D@1000 [facility] Dextrose (Dextrose 50%-Water 25 Gm/50 Ml Disp.Syrin) 0 gm IV X1 PRN; Protocol PRN Reason: Hypoglycemia Docusate Sodium (Docusate Sodium 100 Mg Capsule) 100 mg PO BID@1200,2200 [facility] Last Admin: 07/16/20 22:03 Dose: 100 mg Documented by: Ferrous Sulfate (Ferrous Sulfate 325 Mg Tablet) 325 mg PO DAILY@1200 [facility] Last Admin: 07/16/20 11:38 Dose: 325 mg Documented by: Finasteride (Finasteride 5 Mg Tablet) 5 mg PO DAILY@1200 [facility] Last Admin: 07/16/20 11:38 Dose: 5 mg Documented by: Folic Acid (Folic Acid 1 Mg Tablet) 1 mg PO DAILY@1200 [facility] Last Admin: 07/16/20 11:38 Dose: 1 mg Documented by: Glucagon (Glucagon 1 Mg/Ml Syringe) 1 mg IM .X1 PRN PRN Reason: Hypoglycemia Heparin Sodium (Porcine) (Heparin Injection (Vial) 5,000 Unit/Ml Vial) 5,000 unit SC Q8 [facility] Last Admin: 07/17/20 06:42 Dose: 5,000 unit Documented by: Sodium Chloride () 1,000 mls @ 100 mls/hr IV .Q10H [facility] Last Admin: 07/17/20 08:29 Dose: 100 mls/hr Documented by: Cefepime HCl 1 gm/ Sodium (Chloride) 50 mls @ 100 mls/hr IV Q24 [facility] Last Infusion: 07/16/20 10:55 Dose: Infused Documented by: Insulin Human Lispro (Insulin Lispro 100 Unit/Ml Insuln.Pen) 0 unit SC ACHS [facility]; Protocol Last Admin: 07/17/20 06:40 Dose: Not Given Documented by: Melatonin (Melatonin 3 Mg Tablet) 3 mg PO QHS PRN PRN PRN Reason: INSOMNIA Last Admin: 07/16/20 22:02 Dose: 3 mg Documented by: Metoprolol Succinate (Metoprolol(Xl)Succ 50 Mg Tablet) 50 mg PO DAILY [facility] Last Admin: 07/16/20 08:43 Dose: 50 mg Documented by: Multivitamins/Minerals (Multivitamin (Healthy Eyes) Capsule) 1 capsule PO BID [facility] Last Admin: 07/16/20 22:05 Dose: 1 capsule Documented by: Nutritional Formula (Lactose Free) (Glucerna Shake 120 Ml Liquid) 120 ml PO 4X/DAY [facility] Last Admin: 07/16/20 22:07 Dose: 120 ml Documented by: Ondansetron HCl (Ondansetron 4 Mg/2 Ml Vial) 4 mg IV Q8H PRN PRN PRN Reason: NAUSEA/VOMITING Pantoprazole Sodium (Pantoprazole Sodium 20 Mg Tablet) 20 mg PO BID [facility] Last Admin: 07/16/20 22:05 Dose: 20 mg Documented by: Pramipexole Dihydrochloride (Pramipexole Di-Hcl 0.5 Mg Tablet) 0.5 mg PO TID [facility] Last Admin: 07/17/20 06:41 Dose: 0.5 mg Documented by: Pravastatin Sodium (Pravastatin 40 Mg Tablet) 40 mg PO QHS [facility] Last Admin: 07/16/20 22:03 Dose: 40 mg Documented by: Sodium Chloride (0.9% Saline Lock 10 Ml Syringe) 10 - 40 ml IV UD PRN PRN Reason: SALINE FLUSH Last Admin: 07/16/20 08:43 Dose: 10 ml Documented by: Tamsulosin HCl (Tamsulosin Hcl 0.4 Mg Capsule) 0.4 mg PO QHS [facility] Last Admin: 07/16/20 22:05 Dose: 0.4 mg Documented by: STROKE Vital Signs/Narrative: Vital Signs Pulse Resp Pulse Ox 07/17/20 06:59 64 16 98 07/17/20 05:21 62 Medical Necessity - Tobacco Use Smoking Status: Former smoker Tobacco Use: Cigarettes Assessment/Plan All Active Problems (Last Reviewed 06/29/20 @ 14:40 by Page Hopkins RN) NSTEMI (non-ST elevated myocardial infarction) (Resolved 12/02/19) History of coronary artery stent placement (Resolved 12/23/06) Complicated urinary tract infection (Resolved) UTI (urinary tract infection) (Resolved) 1. POD #2 status post left first toe amputation, for left first toe osteomyelitis Previous wound cultures on 07/14/20 grew staph aureus/lugdunensis It appears that her wound margin cultures show no growth so far Currently on cefepime, ID consult, continue with podiatry recommendations 2. DELVIS on CKD stage III, creatinine is improving, continue to monitor renal function 3. Probable rectal bleeding, stool for occult blood ordered, patient on chronic oral iron Would hold heparin subcu, no acute drop in H&H 4. 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 Hypertension/Hyperlipidemia/CAD status post CABG/HEBER/PAF/morbid obesity/PAD status post bilateral iliac artery stents All complicates care, continue on amlodipine, amiodarone, metoprolol, aspirin, pravastatin 6. Lung adenocarcinoma, s/p left upper lobe wedge resection, s/p chemotherapy Oncology following 7. BPH, continue on Flomax, Proscar 8. DVT prophylaxis with SCDs for now Inpatient E&M: 08374 Subs Hosp L3
[2020-07-17] MEDS: Glucerna Shake 120 ML LIQUID PO ×3 (10:01→21:17)
[2020-07-17] MEDS: Multivitamin (Healthy Eyes) Capsule 1 CAP PO ×2 (10:03→21:25)
[2020-07-17] MEDS: Metoprolol(XL)Succ 50 MG Tablet PO (10:03)
[2020-07-17] MEDS: amLODIPine 5 MG Tablet PO (10:04)
[2020-07-17] MEDS: Amiodarone 200 MG Tablet PO (10:04)
[2020-07-17] MEDS: Folic Acid 1 MG Tablet PO (10:04)
[2020-07-17] MEDS: Ferrous Sulfate 325 MG Tablet PO (10:04)
[2020-07-17] MEDS: Docusate Sodium 100 MG Capsule PO ×2 (10:04→21:25)
[2020-07-17] MEDS: Pantoprazole Sodium 20 MG Tablet PO ×2 (10:04→21:25)
[2020-07-17] MEDS: 0.9% Saline Lock 10 ML Syringe IV ×2 (11:54→21:17)
[2020-07-17 11:55] LABS: Bedside Glucose 112 mg/dL (70-110)
--- NOTE | 2020-07-17 14:33 | CASEMGMT ---
Addendum entered by Kaylee Ross 07/17/20 15:34: MARCO ANTONIO back in to speak with pt. Pt states he spoke with his and plan is for pt to return home with [facility]. MARCO ANTONIO reiterated to pt that currently he is an assist of two with therapy and asked how pt is going to manage at home. Pt states he has a hospital bed and his grandson is going to be able to stay with if needed. MARCO ANTONIO educated pt on [facility]. Pt states he will also need aide services for bathing. SW informed pt that aides can be arranged through [facility] as well. Pt states he will also need transportation home. SW explained that transportation home can be arranged but it will likely be private pay. Pt states he will probably just need a wheelchair van. MARCO ANTONIO explained that the wheelchair van will not help pt physically out of the wheelchair so family will need to be available to assist when pt returns home. Pt states understanding, states that his family doesn't want him to go to SNF (and he agrees) due to COVID. MARCO ANTONIO updated [facility] MARTINES on request for [facility]. Original Note: Social Work Note RN BOBBI and SW in to speak with pt to discuss discharge plans. Pt agreeable to [facility]. Patient was provided a list of SNF providers including quality and resource use data and consistent with the patient?s preferred geographic region, medical needs, and insurance network. The patient?s preferred provider is [facility]. MARCO ANTONIO placed a call to Melissa with TCU, TCU has no beds available at this time. MARCO ANTONIO back in to speak with pt. MARCO ANTONIO updated pt that [facility]CU has no beds available, pt will need to choose different SNF. Pt states call my as she will probably want me to go home then. MARCO ANTONIO placed a call to pt's Ellen. MARCO ANTONIO updated Ellen that TCU has no beds available at this time, if SNF is needed pt will need to go to a different SNF. MARCO ANTONIO updated Ellen that pt cannot remain at [facility] until a bed on TCU becomes available, pt could discharge tomorrow. Ellen states [facility] is closest. MARCO ANTONIO asked if this worker could send referral to [facility]. Ellen states let me call him and discuss this, I don't want him to think I am sticking him in a assisted. MARCO ANTONIO informed Ellen that SNF is being recommended as pt is still assist of two with PT/OT. Ellen states understanding, states again she will call pt to discuss and then pt will let this worker know. Kaylee Ross MRI SUPERVISOR, [employer]
--- NOTE | 2020-07-17 15:40 | CHAPLAIN ---
Type of Pastoral Visit _x__ Initial Visit ___ Follow-up Visit ___ On-call Visit ___ General Patient Visit ___ Spiritual Assessment ___ Family Conference ___ Bereavement ___ Rapid Response ___ Code Blue ___ Other (describe below) Pastoral Care Referral From _x__ Patient ___ Family ___ Nurse ___ Physician ___ Intelligence Specialist ___ Pearl Restorer ___ Other (describe below) Sacrament/Intervention _x__ Active listening ___ Anointing ___ Muslim ___ Bereavement ___ Communion _x__ Claudia exploration ___ _x__ Life review _x__ Prayer ___ Reconciliation ___ Sacrament of Sick _x__ Supportive presence ___ Wedding ___ Other (describe below) Pastoral Comments patient is welcoming of spiritual and emotional support; pt is talkative and gives information about health needs and situations; pt speaks with positive tone and states that he is helped by his claudia; pt describes his claudia is relatively new and that 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
[2020-07-17] MEDS: Finasteride 5 MG Tablet PO (15:55)
--- NOTE | 2020-07-17 16:20 | CON.PCM_ITS ---
Problem List (1) Toe osteomyelitis Status: Acute Reason for Consult: osteo Consulted by: Dr. Vázquez History of Present Illness: The patient is a 74 year old M with DM neuropathy, reports several weeks of worsening L 1st toe ulcer, redness, swelling, drainage. Was on a po abx without improvement. No fever. No pain in feet. Came to ED, taken to OR 07/[address] Rojas for amputation. On cefepime. Full ROS performed and neg except as noted above. - Medical History Past Medical History (Chronic Problems): Chronic Problems (Last Reviewed 06/29/20 @ 14:40 by Page Hopkins RN) Multiple premature ventricular complexes (Chronic) Atherosclerosis of coronary artery of [place] heart without angina pectoris (Chronic) H/O coronary artery bypass surgery (Chronic 02/14/06) CABG x 2 HERRERA-LAD, SVG-OM 02/14/2006 Longstanding persistent atrial fibrillation (Chronic) Benign essential hypertension (Chronic) Hyperlipidemia (Chronic) Right ventricular dilation, secondary (Chronic) Right ventricular systolic dysfunction (Chronic) Iron deficiency anemia due to chronic blood loss (Chronic) Gastric AVMs, September 2017 Secondary pulmonary arterial hypertension (Chronic) 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 (Chronic) HEBER (obstructive sleep apnea) (Chronic) Respiratory failure with hypoxia (Chronic) Polyp of colon, adenomatous (Chronic) Diverticular disease (Chronic) Allergies/Adverse Reactions: Allergies No Known Allergies Allergy (Verified 07/14/20 15:13) Home Medications: Ambulatory Orders Medication Instructions Recorded Folic Acid 1 mg PO DAILY@1200 05/06/13 Pramipexole Di-HCl [Mirapex] 0.5 mg PO TID 12/04/16 docusate sodium 100 mg capsule 100 mg PO BID cap 10/20/17 Ferrous Sulfate [Iron] 65 mg PO DAILY 02/01/19 cholecalciferol (vitamin D3) 125 5,000 unit PO DAILY 03/30/19 mcg (5,000 unit) capsule Tamsulosin HCl [Flomax] 0.4 mg PO QHS 07/12/19 Omeprazole [Prilosec] 20 mg PO BID 09/03/19 Vit A/Vit C/Vit E/Zinc/Copper 1 ea PO BID 09/03/19 [Preservision Areds Tablet] fenofibrate nanocrystallized 145 145 mg PO LUNCH #90 tab 12/06/19 mg tablet furosemide 40 mg tablet 40 mg PO BID tab 12/16/19 gabapentin 600 mg tablet 1,200 mg PO QHS tab 12/16/19 metoprolol succinate 50 mg 50 mg PO DAILY 12/16/19 tablet,extended release 24 hr finasteride 5 mg tablet 5 mg PO DAILY@1200 12/22/19 losartan 50 mg tablet 50 mg PO BID #180 tab 02/24/20 spironolactone 25 mg tablet 25 mg PO DAILY #90 tab 02/25/20 Amlodipine Besylate [Norvasc] 5 mg PO DAILY 03/10/20 Cyanocobalamin [Vitamin B12] 1,000 mcg IM Q30D 03/10/20 fluticasone fur. 100 mcg-umeclid 1 inh INHALATION DAILY #3 ea 05/23/20 62.5 mcg-vilant 25 mcg inhalat.powder amiodarone 200 mg tablet 200 mg PO DAILY #30 tab 06/13/20 Aspirin E.C. [Ecotrin] 81 mg PO MOWEFR@0800 07/14/20 Metformin HCl [Metformin HCl ER] 500 mg PO DAILY 07/14/20 Pravastatin Sodium 40 mg PO QHS 07/14/20 - Social History SMOKING STATUS:: Former smoker Vital Signs Temp Pulse Resp BP Pulse Ox 98.7 F 73 20 H 130/62 H 97 07/17/20 15:52 07/17/20 15:52 07/17/20 15:52 07/17/20 15:52 07/17/20 15:52 Oxygen Flow Rate (L/min) 4 Oxygen Delivery Method Nasal Cannula Weight: 128.3 kg Body Mass Index (BMI) 40.6 Finger Stick Blood Glucose 121 Microbiology Past 72 Hours 07/15/20 09:00 Gram Stain - Final Tissue - Toe Wound Culture - Final Staphylococcus aureus 07/14/20 17:45 Gram Stain - Final Wound - Left Foot Wound Culture - Final Staphylococcus caprae Staphylococcus lugdunensis 07/15/20 09:00 Gram Stain - Final Tissue - Toe Wound Culture - Preliminary No growth-Final to follow Laboratory Tests Past 24 Hrs 07/17/20 07/17/20 04:14 04:14 WBC 6.9 RBC 3.05 L Hgb 9.5 L Hct 29.6 L MCV 97.0 H MCH 31.1 MCHC 32.1 RDW Std Deviation 50.2 H RDW Coeff of Iram 14.2 Plt Count 200 MPV 9.6 Sodium 141 Potassium 4.8 Chloride 112 H Carbon Dioxide 26.0 Anion Gap 3 L BUN 44 H Creatinine 1.75 H Estim Creat Clear Calc 38.24 Est GFR (MDRD) Af Amer 49 L Est GFR (MDRD) Non-Af 41 L BUN/Creatinine Ratio 25.1 H Glucose 97 Calcium 9.1 - Other Studies Radiology: [] reviewed Other Studies: [] Route of nutrition/ use of supplements: [] Nutritional Intake: [] IV Site: [] Savage Catheter: [] - Physical Exam General: Alert, Oriented x3, Cooperative, No apparent distress HEENT: Atraumatic, PERRLA, EOMI Neck: Supple, No Nodes Lungs: Clear to auscultation, Normal air movement Cardiovascular: Regular rate, Regular Rhythm Abdomen: Soft, Non Tender, Non-Distended Extremities: Edema - mild Skin: Ulcer/ Wound - foot wrapped IV Site: Peripheral, without redness Musculoskeletal: No Tenderness to Palpation of Joints or Extremities Neurological: Cranial nerves II-XII grossly intact - Assessment/Plan Antibiotics: [] Assessment/Plan: [] L 1st toe mssa osteo - now s/p OR amputation of distal toe 07/15/[address] Rojas. DELVIS much improved. On cefepime, will change to cefazolin. Plan on po doxy at discharge for 2 week course, depending on further cx results.
[2020-07-17 17:21] LABS: Bedside Glucose 101 mg/dL (70-110)
[2020-07-17] MEDS: Cefazolin 1 GM/50 ML BAG IV (21:17)
[2020-07-17] MEDS: Tamsulosin HCl 0.4 MG Capsule PO (21:25)
[2020-07-17] MEDS: Pravastatin 40 MG Tablet PO (21:26)
[2020-07-17 22:01] LABS: Bedside Glucose 82 mg/dL (70-110)
[2020-07-18] VITALS (9 sets, daily range): BP systolic 136–159; BP diastolic 51–72; PULSE 70–105; RESP 18–21; TEMP 36.9–37; O2SAT 94–99
[2020-07-18] MEDS: Pramipexole Di-HCl 0.5 MG Tablet PO ×2 (06:12→13:50)
[2020-07-18] MEDS: Cefazolin 1 GM/50 ML BAG IV ×2 (06:12→13:48)
[2020-07-18] MEDS: 0.9% Saline Lock 10 ML Syringe IV (06:13)
[2020-07-18 06:45] LABS: Bedside Glucose 99 mg/dL (70-110)
--- NOTE | 2020-07-18 06:53 | PCM.PROGNOTE ---
Patient Problems: Active and Suspected Problems (Last Reviewed 06/29/20 @ 14:40 by Page Hopkins RN) Toe osteomyelitis (Acute) Subjective: This 74 year old male was seen bedside s/p left hallux amputation for treatment of infected ulcer with osteomyelitis. He denies fever, chills, nausea, vomiting. He is eager to return home. He denies foot pain. - Physical Exam Vitals/I&O's: Vital Signs Temp Pulse Resp BP Pulse Ox 98.6 F 70 18 146/64 H 97 07/18/20 03:10 07/18/20 03:43 07/18/20 03:10 07/18/20 03:10 07/18/20 03:10 Oxygen Flow Rate (L/min) 4 Oxygen Delivery Method Nasal Cannula Weight: 128.3 kg Body Mass Index (BMI) 40.6 Finger Stick Blood Glucose 121 Intake and Output for Last 24 Hours 07/16/20 07/17/20 07/18/20 23:59 23:59 23:59 Intake Total 3953.33 / 3953.33 1773.33 / 1773.33 150 / 150 Output Total 1600 / 2225 2725 / 2725 500 / 500 Balance 2353.33 / 1728.33 -951.67 / -951.67 -350 / -350 General: Alert, Oriented x3, Cooperative HEENT: Atraumatic Extremities: No cyanosis, Capillary Refill Less than 3 Seconds, No Calf Tenderness - negative gisela and weinstein signs bilateral, Diminished Peripheral Pulses, Edema - decreased Skin: Incision - well aligned and coapted without gapping, infection, necrosis, erythema, streaking, or odor. no adjacent bogginess or fluctuance on palkpation. Musculoskeletal: No Tenderness to Palpation of Joints or Extremities, Muscle Wasting, - - hallux amputaiton , left. compartments left lower extremity remain soft Neurological: - - lack of normal epicritic sensation via light touch is consistent with neuropathy Psych/Mental Status: Normal Affect, Appropriate Microbiology Past 72 Hours 07/15/20 09:00 Tissue - Toe Gram Stain - Final 07/15/20 09:00 Tissue - Toe Wound Culture - Final Staphylococcus aureus 07/14/20 17:45 Wound - Left Foot Gram Stain - Final 07/14/20 17:45 Wound - Left Foot Wound Culture - Final Staphylococcus caprae Staphylococcus lugdunensis 07/15/20 09:00 Tissue - Toe Gram Stain - Final 07/15/20 09:00 Tissue - Toe Wound Culture - Preliminary No growth-Final to follow Laboratory Results 07/17/20 11:46: POC Glucose 112 H 07/17/20 17:15: POC Glucose 101 07/17/20 21:15: POC Glucose 82 07/18/20 06:21: POC Glucose 99 Current Medications Acetaminophen (Acetaminophen 325 Mg Tablet) 650 mg PO Q6H PRN PRN PRN Reason: Pain Score 1-10/Temp > 100.7 F Last Admin: 07/16/20 22:02 Dose: 650 mg Documented by: Albuterol Sulfate (Albuterol 2.5 Mg/3 Ml Vial.Neb.) 2.5 mg INHALATION Q2H PRN PRN PRN Reason: SOB &/OR WHEEZING Albuterol/Ipratropium (Ipratropium/Albuterol Sulfate 3 Ml Ampul.Neb) 3 ml INHALATION Q6HWA.RT [facility] Last Admin: 07/17/20 20:21 Dose: 3 ml Documented by: Amiodarone HCl (Amiodarone 200 Mg Tablet) 200 mg PO DAILY [facility] Last Admin: 07/17/20 10:04 Dose: 200 mg Documented by: Amlodipine Besylate (Amlodipine 5 Mg Tablet) 5 mg PO DAILY [facility] Last Admin: 07/17/20 10:04 Dose: 5 mg Documented by: Aspirin (Aspirin E.C. 81 Mg Tablet) 81 mg PO MOWEFR@0800 [facility] Last Admin: 07/17/20 08:29 Dose: 81 mg Documented by: Budesonide (Budesonide Respules 0.5 Mg/2 Ml Ampul.Neb.) 0.5 mg INHALATION Q12H.RT [facility] Last Admin: 07/17/20 20:21 Dose: 0.5 mg Documented by: Cholecalciferol (Cholecalciferol (Vit D3) 1,000 Unit (25mcg)) 5,000 unit PO DAILY [facility] Last Admin: 07/17/20 10:03 Dose: 5,000 unit Documented by: Cyanocobalamin (Cyanocobalamin (B12) 1,000 Mcg/Ml Vial) 1,000 mcg IM Q30D@1000 [facility] Dextrose (Dextrose 50%-Water 25 Gm/50 Ml Disp.Syrin) 0 gm IV X1 PRN; Protocol PRN Reason: Hypoglycemia Docusate Sodium (Docusate Sodium 100 Mg Capsule) 100 mg PO BID@1200,2200 [facility] Last Admin: 07/17/20 21:25 Dose: 100 mg Documented by: Ferrous Sulfate (Ferrous Sulfate 325 Mg Tablet) 325 mg PO DAILY@1200 [facility] Last Admin: 07/17/20 10:04 Dose: 325 mg Documented by: Finasteride (Finasteride 5 Mg Tablet) 5 mg PO DAILY@1200 [facility] Last Admin: 07/17/20 15:55 Dose: 5 mg Documented by: Folic Acid (Folic Acid 1 Mg Tablet) 1 mg PO DAILY@1200 [facility] Last Admin: 07/17/20 10:04 Dose: 1 mg Documented by: Glucagon (Glucagon 1 Mg/Ml Syringe) 1 mg IM .X1 PRN PRN Reason: Hypoglycemia Cefazolin Sodium () 1 gm in 50 mls @ 100 mls/hr IV Q8 [facility] Last Infusion: 07/18/20 06:42 Dose: Infused Documented by: Insulin Human Lispro (Insulin Lispro 100 Unit/Ml Insuln.Pen) 0 unit SC ACHS [facility]; Protocol Last Admin: 07/18/20 06:22 Dose: Not Given Documented by: Melatonin (Melatonin 3 Mg Tablet) 3 mg PO QHS PRN PRN PRN Reason: INSOMNIA Last Admin: 07/16/20 22:02 Dose: 3 mg Documented by: Metoprolol Succinate (Metoprolol(Xl)Succ 50 Mg Tablet) 50 mg PO DAILY [facility] Last Admin: 07/17/20 10:03 Dose: 50 mg Documented by: Multivitamins/Minerals (Multivitamin (Healthy Eyes) Capsule) 1 capsule PO BID [facility] Last Admin: 07/17/20 21:25 Dose: 1 capsule Documented by: Nutritional Formula (Lactose Free) (Glucerna Shake 120 Ml Liquid) 120 ml PO 4X/DAY [facility] Last Admin: 07/17/20 21:17 Dose: 120 ml Documented by: Ondansetron HCl (Ondansetron 4 Mg/2 Ml Vial) 4 mg IV Q8H PRN PRN PRN Reason: NAUSEA/VOMITING Pantoprazole Sodium (Pantoprazole Sodium 20 Mg Tablet) 20 mg PO BID [facility] Last Admin: 07/17/20 21:25 Dose: 20 mg Documented by: Pramipexole Dihydrochloride (Pramipexole Di-Hcl 0.5 Mg Tablet) 0.5 mg PO TID [facility] Last Admin: 07/18/20 06:12 Dose: 0.5 mg Documented by: Pravastatin Sodium (Pravastatin 40 Mg Tablet) 40 mg PO QHS [facility] Last Admin: 07/17/20 21:26 Dose: 40 mg Documented by: Sodium Chloride (0.9% Saline Lock 10 Ml Syringe) 10 - 40 ml IV UD PRN PRN Reason: SALINE FLUSH Last Admin: 07/18/20 06:13 Dose: 10 ml Documented by: Tamsulosin HCl (Tamsulosin Hcl 0.4 Mg Capsule) 0.4 mg PO QHS [facility] Last Admin: 07/17/20 21:25 Dose: 0.4 mg Documented by: Medical Necessity - Tobacco Use Smoking Status: Former smoker Tobacco Use: Cigarettes Assessment/Plan All Active Problems (Last Reviewed 06/29/20 @ 14:40 by Page Hopkins RN) Toe osteomyelitis (Acute) NSTEMI (non-ST elevated myocardial infarction) (Resolved 12/02/19) History of coronary artery stent placement (Resolved 12/23/06) Complicated urinary tract infection (Resolved) UTI (urinary tract infection) (Resolved) Left 1st toe ulcer down to necrotic bone with osteomyelitis s/p amputation on 07/15/2020 w/ Dr. Rojas Left foot/ankle cellulitis resolved Diabetes with peripheral neuropathy DELVIS improving Many comorbidities Reviewed diagnostic data. He is afebrile with vital signs stable. Left hallux amputation site is healing well with resolution of local signs of infection. A new dressing was applied today including betadine gauze, aman, and jayne wrap. Cultures have been obtained and pending. Prior culture of infectious component of the removed toe included staphylococcus caprae and lugdunensis. So far there is staphylococcus aureus growth to the clearance fragment. Pathology clearance fragment is pending. Per operation report, the amputation resection margin was clean without devitalized or infectious tissue visualized. Patient on IV antibiotics (cefazolin). Infectious disease is on consult and is appreciated. Plan is for 2 weeks of doxycycline with additional plan pending the final pathology and micro clearance fragment results. No weightbearing left foot, but ok to put partial weightbearing on left heel for transitions with surgical shoe. Keep left foot elevated. I recommend he works with PT to confirm safe to return home with the assistance of his . It is noted he wants to avoid going to a detention facility and has a hospital bed and some assistive devices at home already. I would need to confirm safe transport to his home as well as to follow up visits. Updated lower extremity arterial studies were ordered for further evaluation given his recurrent ulcer scenario.His left ABIs were 0.94 and 0.89 and right 0.93 and 0.84. He has bilateral biphasic waveforms at the ankle level and notable vessel calcification at the thigh level of over 250 mmHg. This is consistent with at least moderate occlusive disease. No clinical signs of critical limb ischemia are noted. I recommend referral to vascular specialist. He is previously known and treated by Dr. Cheung several years ago. If he is still at the hospital tomorrow, a consult will be placed. If not, he can follow up in the out patient setting and a referral will be provided. Diabetes, DVT prophylaxis, Anemia. DELVIS and patient's other medical problems managed by medicine team which is appreciated. He had previously also had a surgery scheduled on 07/27/[address] Breaux, director of curriculum ([facility]: [phone]) in which this is now on hold until he is out of the immediate post operative period for his foot. It is noted his heparin is held. Notes will be sent for communication purposes. Podiatry will continue to follow closely while in house. After discharge, to follow-up with Dr. [facility] in one week. Please call if questions. Gloria Chatman DPM, [facility] [phone]
[2020-07-18] MEDS: Ipratropium/Albuterol Sulfate 3 ML AMPUL.NEB INHALATION ×2 (07:00→14:31)
[2020-07-18] MEDS: Budesonide Respules 0.5 MG/2 ML AMPUL.NEB. INHALATION (07:00)
[2020-07-18 07:18] LABS: Hematocrit 30.8 % (40-54); Hemoglobin 9.7 g/dL (13.0-16.5); Mean Corp Hgb Conc 31.5 g/dL (32-36); Mean Corpuscular Hgb 30.5 pg (27.0-32.0); Mean Corpuscular Volume 96.9 fL (80-94); Mean Platelet Vol. 9.5 fl (6.2-12.0); Platelet Count 204 K/mm3 (150-450); RBC Distribution Width SD 49.8 fl (35.1-43.9); Red Blood Count 3.18 M/mm3 (4.6-6.2); White Blood Count 9.1 K/mm3 (4.4-11.0)
[2020-07-18 07:33] LABS: Anion Gap 3 (5-15); BUN 29 mg/dL (7-18); BUN/Creat Ratio 19.7 RATIO (10-20); Calcium,Total 9.6 mg/dL (8.5-10.1); Chloride 114 mmol/L (98-107); Creatinine, Serum 1.47 mg/dL (0.70-1.30); EST Glomerular Filtration Rate 50 mL/min (>60); Est Glom Filt Rate - Afr Amer 60 mL/min (>60); Estimated Creatinine Clearance 45.52 ml/min; Glucose 108 mg/dL (74-106); Potassium 4.4 mmol/L (3.5-5.1); Sodium Level 143 mmol/L (136-145)
--- NOTE | 2020-07-18 09:30 | CASEMGMT ---
FLORIDA MARTINES updated by MARCO ANTONIO that patient would like [facility] at discharge. Patient was provided a list of [facility] providers including quality and resource use data and consistent with the patient?s preferred geographic region, medical needs, and insurance network. The patient?s preferred provider is [facility]. FL[place] MARTINES sent referral to [facility] and awaiting acceptance. FLOR[place] MARTINES will continue to follow this patient and plan for a safe discharge.
--- NOTE | 2020-07-18 09:54 | EKG12_ITS ---
Test Reason : Blood Pressure : / mmHG Vent. Rate : 082 BPM Atrial Rate : 082 BPM P-R Int : 266 ms QRS Dur : 090 ms QT Int : 380 ms P-R-T Axes : 071 027 150 degrees QTc Int : 443 ms Sinus rhythm with 1st degree A-V block with Premature atrial complexes Septal infarct , age undetermined ST & T wave abnormality, consider lateral ischemia Abnormal ECG Confirmed by CORTEZ CLEARY, ROGELIO ([id number]), commercial production editor ALEXIS RO ([id number]) on 07/24/2020 3:15:16 PM Referred By: Fany Hobson Confirmed By:ROGELIO TORO MD
[2020-07-18] MEDS: Amiodarone 200 MG Tablet PO (10:13)
[2020-07-18] MEDS: amLODIPine 5 MG Tablet PO (10:13)
[2020-07-18] MEDS: Pantoprazole Sodium 20 MG Tablet PO ×2 (10:13→10:14)
[2020-07-18] MEDS: Multivitamin (Healthy Eyes) Capsule 1 CAP PO (10:14)
[2020-07-18] MEDS: Metoprolol(XL)Succ 50 MG Tablet PO (10:15)
[2020-07-18] MEDS: Glucerna Shake 120 ML LIQUID PO ×2 (10:19→13:50)
--- NOTE | 2020-07-18 11:40 | CASEMGMT ---
FLORIDA MARTINES received call from [facility] and they are able to accept the patient. FLORIDA MARTINES updated that patient of acceptance with [facility]. Patient had no further questions or concerns at this time.
[2020-07-18] MEDS: Finasteride 5 MG Tablet PO (12:13)
[2020-07-18] MEDS: Ferrous Sulfate 325 MG Tablet PO (12:13)
[2020-07-18] MEDS: Folic Acid 1 MG Tablet PO (12:13)
[2020-07-18] MEDS: Docusate Sodium 100 MG Capsule PO (12:14)
--- NOTE | 2020-07-18 13:22 | DCINST_ITS ---
- Discharge Diagnoses Current Active Problems: Current Active and Chronic Problems (Last Reviewed 06/29/20 @ 14:40 by Page Hopkins RN) Toe osteomyelitis (Acute) Reason(s) for Visit for Discharge Instructions: Left toe osteomyelitis You will use the following diet at home:: Calorie/Carbohydrate Controlled (specify 1200, 1400, etc), Cardiac Your food should be the consistency of: Regular Your liquids should be the consistency of: Regular/Thin Discharge Activity: Return to Normal Activity Additional Instructions: Complete your antibiotics as prescribed. No weightbearing to the left foot. Partial weightbearing to the left heel for transitions with surgical shoe. Keep left foot elevated. Follow-up with Dr. Chatman in 1 week. Follow-up with your primary care doctor in 1 to 2 weeks. Allergies/Adverse Reactions: Allergies No Known Allergies Allergy (Verified 07/14/20 15:13) Medications to take at Discharge Folic Acid 1 mg PO DAILY@1200 05/06/13 Pramipexole Di-HCl [Mirapex] 0.5 mg PO TID 12/04/16 docusate sodium 100 mg capsule 100 mg PO BID cap 10/20/17 Ferrous Sulfate [Iron] 65 mg PO DAILY 02/01/19 cholecalciferol (vitamin D3) 125 mcg (5,000 unit) capsule 5,000 unit PO DAILY 03/30/19 Tamsulosin HCl [Flomax] 0.4 mg PO QHS 07/12/19 Omeprazole [Prilosec] 20 mg PO BID 09/03/19 Vit A/Vit C/Vit E/Zinc/Copper [Preservision Areds Tablet] 1 ea PO BID 09/03/19 fenofibrate nanocrystallized 145 mg tablet 145 mg PO LUNCH #90 tab 12/06/19 furosemide 40 mg tablet 40 mg PO BID tab 12/16/19 gabapentin 600 mg tablet 1,200 mg PO QHS tab 12/16/19 metoprolol succinate 50 mg tablet,extended release 24 hr 50 mg PO DAILY 12/16/19 finasteride 5 mg tablet 5 mg PO DAILY@1200 12/22/19 losartan 50 mg tablet 50 mg PO BID #180 tab 02/24/20 spironolactone 25 mg tablet 25 mg PO DAILY #90 tab 02/25/20 Amlodipine Besylate [Norvasc] 5 mg PO DAILY 03/10/20 Cyanocobalamin [Vitamin B12] 1,000 mcg IM Q30D 03/10/20 fluticasone fur. 100 mcg-umeclid 62.5 mcg-vilant 25 mcg inhalat.powder 1 inh INHALATION DAILY #3 ea 05/23/20 amiodarone 200 mg tablet 200 mg PO DAILY #30 tab 06/13/20 Aspirin E.C. [Ecotrin] 81 mg PO MOWEFR@0800 07/14/20 Metformin HCl [Metformin HCl ER] 500 mg PO DAILY 07/14/20 Pravastatin Sodium 40 mg PO QHS 07/14/20 Doxycycline 100 mg PO BID #28 cap 07/18/20 Glucerna Shake 120 ml PO 4X/DAY 30 Days #120 liquid 07/18/20 The following prescriptions were given: Doxycycline 100 mg PO BID #28 cap Transmission Status: Received by [facility] Glucerna Shake 120 ml PO 4X/DAY 30 Days #120 liquid Transmission Status: Pending to [facility] Primary Care Physician: Fany Hobson DO [Primary Care Provider] - Please follow up with your Primary Care Physician in: within 1-2 weeks Test Results: Test results from this visit will be discussed in further detail at your follow- up appointment, if applicable. Please Follow Up With: Fany Hobson DO When: 2 wk Please Follow Up With: radha When: 1 wk Proposed Discharge Date: 07/18/20
--- NOTE | 2020-07-18 13:31 | DCINST_ITS ---
<ЕкатеринаGloria soni - Last Filed: 07/18/20 15:19> Discharge Activity: May Shower - with shower bag to left surgical foot Weight Bearing Status: Partial weight bearing Additional Dressing/Incision Instructions:: keep your left foot dressing clean and intact until follow up at [facility] Allergies/Adverse Reactions: Allergies No Known Allergies Allergy (Verified 08/03/20 13:28) Medications to take at Discharge Folic Acid 1 mg PO DAILY@1200 05/06/13 Pramipexole Di-HCl [Mirapex] 0.5 mg PO TID 12/04/16 docusate sodium 100 mg capsule 100 mg PO BID cap 10/20/17 Ferrous Sulfate [Iron] 65 mg PO DAILY 02/01/19 cholecalciferol (vitamin D3) 125 mcg (5,000 unit) capsule 5,000 unit PO DAILY 03/30/19 Tamsulosin HCl [Flomax] 0.4 mg PO QHS 07/12/19 Omeprazole [Prilosec] 20 mg PO BID 09/03/19 Vit A/Vit C/Vit E/Zinc/Copper [Preservision Areds Tablet] 1 ea PO BID 09/03/19 fenofibrate nanocrystallized 145 mg tablet 145 mg PO LUNCH #90 tab 12/06/19 gabapentin 600 mg tablet 1,200 mg PO QHS tab 12/16/19 metoprolol succinate 50 mg tablet,extended release 24 hr 50 mg PO DAILY 12/16/19 finasteride 5 mg tablet 5 mg PO DAILY@1200 12/22/19 losartan 50 mg tablet 50 mg PO BID #180 tab 02/24/20 Amlodipine Besylate [Norvasc] 5 mg PO DAILY 03/10/20 Cyanocobalamin [Vitamin B12] 1,000 mcg IM Q30D 03/10/20 fluticasone fur. 100 mcg-umeclid 62.5 mcg-vilant 25 mcg inhalat.powder 1 inh INHALATION DAILY #3 ea 05/23/20 amiodarone 200 mg tablet 200 mg PO DAILY #30 tab 06/13/20 Aspirin E.C. [Ecotrin] 81 mg PO MOWEFR@0800 07/14/20 Pravastatin Sodium 40 mg PO QHS 07/14/20 Doxycycline 100 mg PO BID #28 cap 07/18/20 Glucerna Shake 120 ml PO 4X/DAY 30 Days #120 liquid 07/18/20 The following prescriptions were given: Doxycycline 100 mg PO BID #28 cap Transmission Status: Received by [facility] Glucerna Shake 120 ml PO 4X/DAY 30 Days #120 liquid Transmission Status: Received by [facility] Primary Care Physician: Fany Hobson DO [Primary Care Provider] - Test Results: Test results from this visit will be discussed in further detail at your follow- up appointment, if applicable. Please Follow Up With: Fredi Rojas DPM When: 1 wk [facility], call [phone] Please Follow Up With: Jamie Cheung MD When: w/in 2-4 weeks <Fredi Rojas - Last Filed: 08/04/20 08:53> Discharge Activity: Return to Normal Activity Weight Bearing Status: Partial weight bearing - No weight on toes left foot, ok to put partial weight on left heel only transitions, otherwise no weightbearing on left foot. Keep extremity elevated above heart level: Left Leg - keep left foot elevated as much as possible Call your doctor if your incision/area has: Continuous Slow Oozing, Sudden Increased Bleeding, Foul Smelling Discharge Call your doctor if you observe: Fever of 101 or Higher, Shortness of breath, Chest pain, Calf discomfort, Uncontrolled pain Cleanse incision/area with: - - Left foot dressing care: Change dressing daily - apply betadine solution to surgica/incision site and then cover with dry 4x4 gauze, kerlix (gauze roll) and jayne bandage dressing. Please follow up with your Primary Care Physician in: within 1-2 weeks Test Results: Test results from this visit will be discussed in further detail at your follow- up appointment, if applicable. Please Follow Up With: Fany Hobson DO When: 2 wk Please Follow Up With: Gloria Chatman DPM When: 1 wk Please Follow Up With: Marybeth Millan MD Proposed Discharge Date: 07/18/20
--- NOTE | 2020-07-18 13:31 | PCM.DC.SUM ---
Discharge Date and Diagnosis - Problem List Patient Problems: Active and Suspected Problems (Last Reviewed 06/29/20 @ 14:40 by Page Hopkins RN) Toe osteomyelitis (Acute) Date of Admission: 07/14/20 Date of Discharge: 07/18/20 - Primary Discharge Diagnosis Acute Problems: Active Problems (Last Reviewed 06/29/20 @ 14:40 by Page Hopkins RN) Toe osteomyelitis (Acute) DELVIS on CKD stage III Morbid obesity, BMI 40.6 - Secondary Discharge Diagnosis Chronic Problems: Chronic Problems (Last Reviewed 06/29/20 @ 14:40 by Page Hopkins RN) Multiple premature ventricular complexes (Chronic) Atherosclerosis of coronary artery of [place] heart without angina pectoris (Chronic) H/O coronary artery bypass surgery (Chronic 02/14/06) CABG x 2 HERRERA-LAD, SVG-OM 02/14/2006 Longstanding persistent atrial fibrillation (Chronic) Benign essential hypertension (Chronic) Hyperlipidemia (Chronic) Right ventricular dilation, secondary (Chronic) Right ventricular systolic dysfunction (Chronic) Iron deficiency anemia due to chronic blood loss (Chronic) Gastric AVMs, September 2017 Secondary pulmonary arterial hypertension (Chronic) 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 (Chronic) HEBER (obstructive sleep apnea) (Chronic) Respiratory failure with hypoxia (Chronic) Polyp of colon, adenomatous (Chronic) Diverticular disease (Chronic) Hospital Course and Treatment Imaging Results: Clinical Impression(s) from Imaging Studies Foot X-Ray 07/14/20 15:54 IMPRESSION: Suspect cellulitis of the first digit with an ulcer and osteomyelitis of the tuft of the first distal phalanx. Electronically Signed: Glen Gutiérrez MD at 16:16 EST Tel , Service support , Foot X-Ray 07/15/20 09:15 IMPRESSION: Interval amputation of the first digit through the base of the proximal phalanx. Electronically Signed: Glen Gutiérrez MD at 10:00 EST Tel , Service support , Podiatry ID Operations: None Procedures: None Summary of Care Provided: The patient is a 74 year old M with multiple comorbidities including CAD status post CABG, hypertension, HEBER, iron deficiency anemia, history of GI bleed who comes in with left toe infection. 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 His creatinine was also elevated. X-ray of the foot was indicated of osteomyelitis. Patient was admitted to the [facility] floor and managed on IV antibiotics. Dietary and infectious disease were consulted. Patient underwent Amputation of his first toe, left foot on 07/15/20. Postoperatively, he continued to do well. He is wound cultures prior to the amputation show Staph aureus, Staphylococcus lobe diagnosis. His tissue cultures intraoperatively showed no growth. Patient was managed on the floor on IV cefepime which was later changed to IV cefazolin. He was discharged on a 2-week course of doxycycline. He will follow-up with podiatry in 1 week as well as with hematology for probable iron transfusion within 2 weeks. Patient was recommended by PT and OT to be discharged [place] a [place] [facility] [place]. He wanted TCU but it was no room. Patient was a 2 person assist during this hospital stay. I stressed to him about importance of going somewhere for rehab. He declined going anywhere else for subacute rehab. He was discharged home with home health. Patient Problems: Active and Suspected Problems (Last Reviewed 06/29/20 @ 14:40 by Page Hopkins RN) Toe osteomyelitis (Acute) Subjective: On the day of discharge, patient was seen and examined. Denied any new complaints. He was seen by PT and OT and recommended to be discharged to a [place] [facility] facility but he declined and wanted to be discharged home with home health. Objective: Physical exam: General: Alert, Oriented x3, Cooperative, No apparent distress, morbidly obese HEENT: Atraumatic, PERRLA, EOMI, Normocephalic Oral: Moist Mucosa Neck: Supple, No JVD Lungs: Clear to auscultation Cardiovascular: Regular rate, Regular Rhythm, Normal S1, Normal S2, No murmurs Abdomen: Soft, Non Tender, Non-Distended, No Hepato-splenomegaly, Obese Extremities: Trace bilateral edema Skin: Dressing over the left foot grossly intact Neurological: Neuro grossly intact, - - Diminished sensation bilaterally in his lower extremities, chronic Psych/Mental Status: Normal Affect, Appropriate - Physical Exam Vitals/I&O's: Vital Signs Temp Pulse Resp BP Pulse Ox 98.4 F 80 18 136/51 H 95 07/18/20 08:05 07/18/20 10:15 07/18/20 08:05 07/18/20 10:15 07/18/20 08:05 Oxygen Flow Rate (L/min) 3 Oxygen Delivery Method Nasal Cannula Weight: 128.3 kg Body Mass Index (BMI) 40.6 Finger Stick Blood Glucose 121 Intake and Output for Last 24 Hours 07/16/20 07/17/20 07/18/20 23:59 23:59 23:59 Intake Total 3953.33 / 3953.33 1773.33 / 1773.33 150 / 150 Output Total 1600 / 2225 2725 / 2725 500 / 500 Balance 2353.33 / 1728.33 -951.67 / -951.67 -350 / -350 Microbiology Past 72 Hours 07/15/20 09:00 Tissue - Toe Gram Stain - Final 07/15/20 09:00 Tissue - Toe Wound Culture - Final No growth aerobically. 07/15/20 09:00 Tissue - Toe Anaerobic Culture - Preliminary No growth in 48 hours. 07/15/20 09:00 Tissue - Toe Gram Stain - Final 07/15/20 09:00 Tissue - Toe Wound Culture - Final Staphylococcus aureus 07/15/20 09:00 Tissue - Toe Anaerobic Culture - Final No anaerobic bacteria isolated. 07/14/20 17:45 Wound - Left Foot Gram Stain - Final 07/14/20 17:45 Wound - Left Foot Wound Culture - Final Staphylococcus caprae Staphylococcus lugdunensis Laboratory Results 07/17/20 17:15: POC Glucose 101 07/17/20 21:15: POC Glucose 82 07/18/20 06:21: POC Glucose 99 07/18/20 07:04: WBC 9.1, RBC 3.18 L, Hgb 9.7 L, Hct 30.8 L, MCV 96.9 H, MCH 30.5, MCHC 31.5 L, RDW Std Deviation 49.8 H, RDW Coeff of Iram 14.0, Plt Count 204, MPV 9.5 07/18/20 07:04: Sodium 143, Potassium 4.4, Chloride 114 H, Carbon Dioxide 26.0, Anion Gap 3 L, BUN 29 H, Creatinine 1.47 H, Estim Creat Clear Calc 45.52, Est GFR (MDRD) Af Amer 60, Est GFR (MDRD) Non-Af 50 L, BUN/Creatinine Ratio 19.7, Glucose 108 H, Calcium 9.6 Current Medications Acetaminophen (Acetaminophen 325 Mg Tablet) 650 mg PO Q6H PRN PRN PRN Reason: Pain Score 1-10/Temp > 100.7 F Last Admin: 07/16/20 22:02 Dose: 650 mg Documented by: Albuterol Sulfate (Albuterol 2.5 Mg/3 Ml Vial.Neb.) 2.5 mg INHALATION Q2H PRN PRN PRN Reason: SOB &/OR WHEEZING Albuterol/Ipratropium (Ipratropium/Albuterol Sulfate 3 Ml Ampul.Neb) 3 ml INHALATION Q6HWA.RT [facility] Last Admin: 07/18/20 07:00 Dose: 3 ml Documented by: Amiodarone HCl (Amiodarone 200 Mg Tablet) 200 mg PO DAILY [facility] Last Admin: 07/18/20 10:13 Dose: 200 mg Documented by: Amlodipine Besylate (Amlodipine 5 Mg Tablet) 5 mg PO DAILY [facility] Last Admin: 07/18/20 10:13 Dose: 5 mg Documented by: Aspirin (Aspirin E.C. 81 Mg Tablet) 81 mg PO MOWEFR@0800 [facility] Last Admin: 07/17/20 08:29 Dose: 81 mg Documented by: Budesonide (Budesonide Respules 0.5 Mg/2 Ml Ampul.Neb.) 0.5 mg INHALATION Q12H.RT [facility] Last Admin: 07/18/20 07:00 Dose: 0.5 mg Documented by: Cholecalciferol (Cholecalciferol (Vit D3) 1,000 Unit (25mcg)) 5,000 unit PO DAILY [facility] Last Admin: 07/18/20 10:16 Dose: 5,000 unit Documented by: Cyanocobalamin (Cyanocobalamin (B12) 1,000 Mcg/Ml Vial) 1,000 mcg IM Q30D@1000 [facility] Dextrose (Dextrose 50%-Water 25 Gm/50 Ml Disp.Syrin) 0 gm IV X1 PRN; Protocol PRN Reason: Hypoglycemia Docusate Sodium (Docusate Sodium 100 Mg Capsule) 100 mg PO BID@1200,2200 [facility] Last Admin: 07/18/20 12:14 Dose: 100 mg Documented by: Ferrous Sulfate (Ferrous Sulfate 325 Mg Tablet) 325 mg PO DAILY@1200 [facility] Last Admin: 07/18/20 12:13 Dose: 325 mg Documented by: Finasteride (Finasteride 5 Mg Tablet) 5 mg PO DAILY@1200 [facility] Last Admin: 07/18/20 12:13 Dose: 5 mg Documented by: Folic Acid (Folic Acid 1 Mg Tablet) 1 mg PO DAILY@1200 [facility] Last Admin: 07/18/20 12:13 Dose: 1 mg Documented by: Glucagon (Glucagon 1 Mg/Ml Syringe) 1 mg IM .X1 PRN PRN Reason: Hypoglycemia Cefazolin Sodium () 1 gm in 50 mls @ 100 mls/hr IV Q8 [facility] Last Infusion: 07/18/20 06:42 Dose: Infused Documented by: Insulin Human Lispro (Insulin Lispro 100 Unit/Ml Insuln.Pen) 0 unit SC ACHS [facility]; Protocol Last Admin: 07/18/20 12:10 Dose: Not Given Documented by: Melatonin (Melatonin 3 Mg Tablet) 3 mg PO QHS PRN PRN PRN Reason: INSOMNIA Last Admin: 07/16/20 22:02 Dose: 3 mg Documented by: Metoprolol Succinate (Metoprolol(Xl)Succ 50 Mg Tablet) 50 mg PO DAILY [facility] Last Admin: 07/18/20 10:15 Dose: 50 mg Documented by: Multivitamins/Minerals (Multivitamin (Healthy Eyes) Capsule) 1 capsule PO BID [facility] Last Admin: 07/18/20 10:14 Dose: 1 capsule Documented by: Nutritional Formula (Lactose Free) (Glucerna Shake 120 Ml Liquid) 120 ml PO 4X/DAY [facility] Last Admin: 07/18/20 10:19 Dose: 120 ml Documented by: Ondansetron HCl (Ondansetron 4 Mg/2 Ml Vial) 4 mg IV Q8H PRN PRN PRN Reason: NAUSEA/VOMITING Pantoprazole Sodium (Pantoprazole Sodium 20 Mg Tablet) 20 mg PO BID [facility] Last Admin: 07/18/20 10:14 Dose: 20 mg Documented by: Pramipexole Dihydrochloride (Pramipexole Di-Hcl 0.5 Mg Tablet) 0.5 mg PO TID [facility] Last Admin: 07/18/20 06:12 Dose: 0.5 mg Documented by: Pravastatin Sodium (Pravastatin 40 Mg Tablet) 40 mg PO QHS [facility] Last Admin: 07/17/20 21:26 Dose: 40 mg Documented by: Sodium Chloride (0.9% Saline Lock 10 Ml Syringe) 10 - 40 ml IV UD PRN PRN Reason: SALINE FLUSH Last Admin: 07/18/20 06:13 Dose: 10 ml Documented by: Tamsulosin HCl (Tamsulosin Hcl 0.4 Mg Capsule) 0.4 mg PO QHS [facility] Last Admin: 07/17/20 21:25 Dose: 0.4 mg Documented by: Discharge Diet: Low fat/ Low Cholesterol, 2000 mg Sodium Diet Discharge Activity: Return to Normal Activity Home Medications: Medications to take at Discharge Folic Acid 1 mg PO DAILY@1200 05/06/13 Pramipexole Di-HCl [Mirapex] 0.5 mg PO TID 12/04/16 docusate sodium 100 mg capsule 100 mg PO BID cap 10/20/17 Ferrous Sulfate [Iron] 65 mg PO DAILY 02/01/19 cholecalciferol (vitamin D3) 125 mcg (5,000 unit) capsule 5,000 unit PO DAILY 03/30/19 Tamsulosin HCl [Flomax] 0.4 mg PO QHS 07/12/19 Omeprazole [Prilosec] 20 mg PO BID 09/03/19 Vit A/Vit C/Vit E/Zinc/Copper [Preservision Areds Tablet] 1 ea PO BID 09/03/19 fenofibrate nanocrystallized 145 mg tablet 145 mg PO LUNCH #90 tab 12/06/19 furosemide 40 mg tablet 40 mg PO BID tab 12/16/19 gabapentin 600 mg tablet 1,200 mg PO QHS tab 12/16/19 metoprolol succinate 50 mg tablet,extended release 24 hr 50 mg PO DAILY 12/16/19 finasteride 5 mg tablet 5 mg PO DAILY@1200 12/22/19 losartan 50 mg tablet 50 mg PO BID #180 tab 02/24/20 spironolactone 25 mg tablet 25 mg PO DAILY #90 tab 02/25/20 Amlodipine Besylate [Norvasc] 5 mg PO DAILY 03/10/20 Cyanocobalamin [Vitamin B12] 1,000 mcg IM Q30D 03/10/20 fluticasone fur. 100 mcg-umeclid 62.5 mcg-vilant 25 mcg inhalat.powder 1 inh INHALATION DAILY #3 ea 05/23/20 amiodarone 200 mg tablet 200 mg PO DAILY #30 tab 06/13/20 Aspirin E.C. [Ecotrin] 81 mg PO MOWEFR@0800 07/14/20 Metformin HCl [Metformin HCl ER] 500 mg PO DAILY 07/14/20 Pravastatin Sodium 40 mg PO QHS 07/14/20 Doxycycline 100 mg PO BID #28 cap 07/18/20 Glucerna Shake 120 ml PO 4X/DAY 30 Days #120 liquid 07/18/20 Following Prescriptions Were Given to Patient: Doxycycline 100 mg PO BID #28 cap Transmission Status: Received by [facility] Glucerna Shake 120 ml PO 4X/DAY 30 Days #120 liquid Transmission Status: Received by [facility] Primary Care Physician: Fany Hobson DO [Primary Care Provider] - Please follow up with your Primary Care Physician in: within 1-2 weeks Please Follow Up With: Fany Hobson DO When: 2 wk Please Follow Up With: radha When: 1 wk Please Follow Up With: Marybeth Millan MD Disposition: Home with Home Health Minutes spent on discharge:: 40 Patient Condition:: Stable Medical Necessity - Tobacco Use Smoking Status: Former smoker Tobacco Use: Cigarettes Meaningful Use Info Meaningful Use Diagnoses (Choose all that apply): None applicable Inpatient E&M: 22760 Disch Hosp
[2020-07-18 13:51] LABS: Bedside Glucose 88 mg/dL (70-110)
--- NOTE | 2020-07-19 16:01 | NURSING ---
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 States that patient was able to get a good night rest and feeling better. Confirmed picked up DC medications. Has [facility] appointment Friday at 10am and appointment with Dr Hobson Friday at 1:30pm. States Labs scheduled on 07.27.20 and has an appointment with the mainframe systems administrator on Friday. Awaiting return call from Dr Batista re: Blood thinners that have been stopped d/t GIB but patient with ho Afib. Denies any issues, concerns, or questions with [facility], Medications or f/u. Thanked /patient for choosing [facility] for care and conversation was ended. Nilda Saravia RNCM
== END 2020-07-18 14:49 | disposition home health service (06) | DRG 617 ==
LOC: ED 16:04 → MS3 18:19
PROVIDERS: Anesthesiology; Internal Medicine; Podiatrist; Admitting Provider Family Medicine; Emergency Provider Emergency Medicine; PCP Internal Medicine; Visit Provider Internal Medicine
PROC: 0Y6Q0Z1 Detachment at Left 1st Toe, High, Open Approach (ICD-10-PCS; principal; 2020-07-15 09:00)
DX: E11.69 Type 2 diabetes mellitus with other specified complication (principal); M86.172 Other acute osteomyelitis, left ankle and foot; L03.116 Cellulitis of left lower limb; I48.11 Longstanding persistent atrial fibrillation; Z68.41 Body mass index [BMI] 40.0-44.9, adult; K62.5 Hemorrhage of anus and rectum; B95.61 Methicillin susceptible Staphylococcus aureus infection as the cause of diseases classified elsewhere; N17.9 Acute kidney failure, unspecified; L03.032 Cellulitis of left toe; E11.42 Type 2 diabetes mellitus with diabetic polyneuropathy; E11.621 Type 2 diabetes mellitus with foot ulcer; L97.524 Non-pressure chronic ulcer of other part of left foot with necrosis of bone; E11.51 Type 2 diabetes mellitus with diabetic peripheral angiopathy without gangrene; I12.9 Hypertensive chronic kidney disease with stage 1 through stage 4 chronic kidney disease, or unspecified chronic kidney disease; N18.30 Chronic kidney disease, stage 3 unspecified; I27.21 Secondary pulmonary arterial hypertension; G20 Parkinson's disease; F02.80 Dementia in other diseases classified elsewhere, unspecified severity, without behavioral disturbance, psychotic disturbance, mood disturbance, and anxiety; E11.22 Type 2 diabetes mellitus with diabetic chronic kidney disease; D50.9 Iron deficiency anemia, unspecified; I25.10 Atherosclerotic heart disease of native coronary artery without angina pectoris; E78.5 Hyperlipidemia, unspecified; N40.0 Benign prostatic hyperplasia without lower urinary tract symptoms; G47.33 Obstructive sleep apnea (adult) (pediatric); K21.9 Gastro-esophageal reflux disease without esophagitis; E66.01 Morbid (severe) obesity due to excess calories; Z79.84 Long term (current) use of oral hypoglycemic drugs; Z79.82 Long term (current) use of aspirin; Z79.899 Other long term (current) drug therapy; I25.2 Old myocardial infarction; Z87.891 Personal history of nicotine dependence; Z85.118 Personal history of other malignant neoplasm of bronchus and lung; Z95.1 Presence of aortocoronary bypass graft; Z95.5 Presence of coronary angioplasty implant and graft; Z92.21 Personal history of antineoplastic chemotherapy
CPT/HCPCS: 36415; 73630; 80048; 80076; 82962; 83735; 85025; 85027; 85610; 85652; 85730; 86140; 87015; 87070; 87075; 87077; 87102; 87116; 87186; 87205; 87206; 87640; 88304; 88305; 88311; 93005; 93923; 94640; 97110; 97116; 97163; 97165; 97530; 97535; 97802; 99251; 99284; J7030; J7050; A4216; G0463

== ENCOUNTER → 2020-07-14 | Outpatient (CLI) | payer MEDICARE, OTHER, SELFPAY ==
[2020-07-14 15:10] VITALS: BMI 40.8
== END | disposition home or self-care (01) ==
LOC: LABSPEC 15:19
PROVIDERS: PCP Internal Medicine; Visit Provider Podiatrist Foot & Ankle Surgery
DX: L97.522 Non-pressure chronic ulcer of other part of left foot with fat layer exposed (principal)
CPT/HCPCS: 87070; 87075; 87205

== ENCOUNTER → 2020-08-11 | Outpatient (CLI) | payer MEDICARE, OTHER, SELFPAY ==
[2020-08-07 13:31] VITALS: BMI 42.0
[2020-08-11 15:47] LABS: Absolute Neutrophil Count 6.6 X10^3/uL (2.0-7.7); Basophil# 0.04 X10^3/uL; Basophil% 0.5 % (0-1); Eosinophil# 0.19 X10^3/uL; Eosinophils% 2.2 % (0-5); Hematocrit 35.1 % (40-54); Hemoglobin 11.4 g/dL (13.0-16.5); Lymphocyte % 11.7 % (19-41); Mean Corp Hgb Conc 32.5 g/dL (32-36); Mean Corpuscular Hgb 31.4 pg (27.0-32.0); Mean Corpuscular Volume 96.7 fL (80-94); Mean Platelet Vol. 10.4 fl (6.2-12.0); Monocyte# 0.71 X10^3/uL; Monocyte% 8.3 % (0-10); NRBC Flagged by Analyzer 0 % (0-5); Neutrophil # 6.56 X10^3/uL (2.7-7.7); Neutrophil % 76.7 % (47-70); Platelet Count 172 K/mm3 (150-450); RBC Distribution Width CV 14.4 % (11.6-14.6); RBC Distribution Width SD 50.2 fl (35.1-43.9); Red Blood Count 3.63 M/mm3 (4.6-6.2); White Blood Count 8.6 K/mm3 (4.4-11.0)
[2020-08-11 16:03] LABS: ALB/GLOB Ratio 1.2 RATIO (0.9-2.4); AST(SGOT) 19 U/L (15-37); Alanine Aminotransfer ALT/SGPT 18 U/L (16-61); Albumin, Serum 3.9 g/dL (3.2-5.0); Alkaline Phosphatase 58 U/L (45-117); Anion Gap 7 (5-15); BUN 16 mg/dL (7-18); BUN/Creat Ratio 11.3 RATIO (10-20); Chloride 105 mmol/L (98-107); Creatinine, Serum 1.41 mg/dL (0.70-1.30); EST Glomerular Filtration Rate 52 mL/min (>60); Est Glom Filt Rate - Afr Amer 63 mL/min (>60); Globulin 3.3 g/dL (2.2-4.2); Glucose 96 mg/dL (74-106); Potassium 3.7 mmol/L (3.5-5.1); Protein, Total 7.2 g/dL (6.4-8.2); Sodium Level 140 mmol/L (136-145)
[2020-08-11 16:12] LABS: BNP,B-Type NATRIURETIC PEPTIDE 271.2 pg/mL (0-100)
== END | disposition home or self-care (01) ==
LOC: LABSPEC 15:30
PROVIDERS: PCP Internal Medicine; Visit Provider Internal Medicine
DX: I50.9 Heart failure, unspecified (principal); R07.9 Chest pain, unspecified
CPT/HCPCS: 80053; 83880; 84484; 85025

== ENCOUNTER → 2020-08-18 08:36 | Outpatient (CLI) | payer MEDICARE, OTHER, SELFPAY ==
[2020-08-03 14:59] VITALS: BMI 42.0
[2020-08-07 13:31] VITALS: BMI 42.0
--- NOTE | 2020-08-18 08:40 | AAVD_ITS ---
Reason For Study: Atherosclerosis Aorta Measurements Aorta Doppler Measurements Proximal aorta measures2.06 x 2.08cm. in cross- Peak systolic flow velocities within the proximal sectional axis. aorta measure 83 cm/sec. Proximal aorta measures2.08cm. in longitudinal Peak systolic flow velocities within the mid aorta axis. measure 76 cm/sec. Mid aorta measures1.89 x 1.87cm. in cross- Peak systolic flow velocities within the distal sectional axis. aorta measure 54.8 cm/sec. Mid aorta measures1.89cm. in longitudinal axis. Distal aorta measures1.26 x 1.29cm. in cross- sectional axis. Distal aorta measures1.29cm. in longitudinal axis. Left Iliac Artery Left iliac artery measures 0.86 x 0.90 cm. in the cross-sectional axis. Left iliac artery measures 0.97 cm. in the longitudinal axis. Peak systolic velocity in the left iliac artery measures 146.7 cm/sec. Right Iliac Artery Right iliac artery measures 0.95 x 0.97 cm. in the cross-sectional axis. Right iliac artery measures 0.92 cm. in the longitudinal axis. Peak systolic velocity in the right iliac artery measures 115.6 cm/sec. Interpretation Summary No evidence of aortoiliac aneurysm or stenosis. Ordering Physician: Jamie Cheung Referring Physician: Fany Hobson D.O. Performed By: Kaylee Haynes RVT
== END ==
PROVIDERS: PCP Internal Medicine; Referring Provider Surgery Vascular Surgery; Visit Provider Surgery Vascular Surgery
DX: R09.89 Other specified symptoms and signs involving the circulatory and respiratory systems (principal); I70.213 Atherosclerosis of native arteries of extremities with intermittent claudication, bilateral legs; I65.23 Occlusion and stenosis of bilateral carotid arteries; E78.00 Pure hypercholesterolemia, unspecified; I10 Essential (primary) hypertension
CPT/HCPCS: 93978

== ENCOUNTER → 2020-09-14 11:52 | Outpatient (CLI) | payer MEDICARE, OTHER, SELFPAY ==
[2020-09-04 14:37] VITALS: BMI 42.9
[2020-09-14 15:08] LABS: Erythrocyte Sedimentation Rate 5 mm/hr (0-20)
[2020-09-14 15:11] LABS: Absolute Lymphocyte Count 0.54 X10^3/uL (0.83-4.51); Absolute Neutrophil Count 10.8 X10^3/uL (2.0-7.7); Basophil# 0.03 X10^3/uL; Basophil% 0.2 % (0-1); Eosinophil# 0.07 X10^3/uL; Eosinophils% 0.6 % (0-5); Hematocrit 36.6 % (40-54); Hemoglobin 11.3 g/dL (13.0-16.5); Lymphocyte # 0.54 X10^3/ul (4.0); Lymphocyte % 4.4 % (19-41); Mean Corp Hgb Conc 30.9 g/dL (32-36); Mean Corpuscular Volume 100.3 fL (80-94); Monocyte# 0.94 X10^3/uL; Monocyte% 7.6 % (0-10); NRBC Flagged by Analyzer 0 % (0-5); Neutrophil # 10.75 X10^3/uL (2.7-7.7); Neutrophil % 86.9 % (47-70); POSITIVE DIFFERENTIAL YES; Platelet Count 197 K/mm3 (150-450); RBC Distribution Width CV 14.4 % (11.6-14.6); RBC Distribution Width SD 52.8 fl (35.1-43.9); Red Blood Count 3.65 M/mm3 (4.6-6.2); White Blood Count 12.4 K/mm3 (4.4-11.0)
[2020-09-14 15:12] LABS: Differential Indicated SCAN CRITERIA MET
[2020-09-14 15:29] LABS: ALB/GLOB Ratio 1.1 RATIO (0.9-2.4); AST(SGOT) 13 U/L (15-37); Alanine Aminotransfer ALT/SGPT 15 U/L (16-61); Albumin, Serum 3.8 g/dL (3.2-5.0); Alkaline Phosphatase 68 U/L (45-117); Anion Gap 7 (5-15); BUN 22 mg/dL (7-18); BUN/Creat Ratio 13.2 RATIO (10-20); Chloride 107 mmol/L (98-107); Creatinine, Serum 1.67 mg/dL (0.70-1.30); EST Glomerular Filtration Rate 43 mL/min (>60); Est Glom Filt Rate - Afr Amer 52 mL/min (>60); Globulin 3.4 g/dL (2.2-4.2); Glucose 94 mg/dL (74-106); Potassium 3.7 mmol/L (3.5-5.1); Protein, Total 7.2 g/dL (6.4-8.2); Sodium Level 143 mmol/L (136-145)
[2020-09-14 15:51] LABS: Platelet Estimate ADEQUATE (ADEQ); Red Cell Morphology NORM C+C NORMAL (NORM C&C)
[2020-09-14 20:12] LABS: M R Staph aureus DNA By PCR Negative (Negative); Probe Check PASS; Staph aureus DNA By PCR POSITIVE (Negative)
== END ==
PROVIDERS: PCP Internal Medicine; Referring Provider Podiatrist; Visit Provider Podiatrist
DX: L03.116 Cellulitis of left lower limb (principal)
CPT/HCPCS: 36415; 80053; 85025; 85652; 86140; 87070; 87075; 87077; 87186; 87205; 87640

== ENCOUNTER 2020-10-06 06:55 | Day surgery (SDC) | payer MEDICARE, OTHER, SELFPAY ==
[2020-09-15 11:11] VITALS: BMI 41.5
[2020-10-03 13:53] VITALS: BMI 42.8
[2020-10-06 08:03] VITALS: BP 125/60; PULSE 63; RESP 16; TEMP 36.9; O2SAT 96; BMI 41.5
[2020-10-06 08:27] LABS: Bedside Glucose 104 mg/dL (70-110)
[2020-10-06] MEDS: Lactated Ringers 1,000 ML 80 ML IV (08:28)
--- NOTE | 2020-10-06 09:06 | DCINST_ITS ---
Discharge Activity: May Shower - with shower back to left lower extremity, Use Walker Weight Bearing Status: Partial weight bearing - It is ok heel touch in surgical shoe for transfers and short ambulation. Do not exercise walk yet. Keep extremity elevated above heart level: Left Leg Call your doctor if your incision/area has: Continuous Slow Oozing, Sudden Increased Bleeding, Increased Pain/ Swelling, Increased Redness, Foul Smelling Discharge Call your doctor if you observe: Fever of 101 or Higher, Calf discomfort Cleanse incision/area with: Keep Dressing Clean & Dry Additional Instructions: Take over the counter Tylenol if needed for pain in a safe and recommended manner. Allergies/Adverse Reactions: Allergies No Known Allergies Allergy (Verified 10/06/20 07:55) Medications to take at Discharge Folic Acid 1 mg PO DAILY@1200 05/06/13 Pramipexole Di-HCl [Mirapex] 0.5 mg PO TID 12/04/16 docusate sodium 100 mg capsule 100 mg PO BID cap 10/20/17 Ferrous Sulfate [Iron] 65 mg PO DAILY 02/01/19 cholecalciferol (vitamin D3) 125 mcg (5,000 unit) capsule 5,000 unit PO DAILY 03/30/19 Tamsulosin HCl [Flomax] 0.4 mg PO QHS 07/12/19 Omeprazole [Prilosec] 20 mg PO BID 09/03/19 Vit A/Vit C/Vit E/Zinc/Copper [Preservision Areds Tablet] 1 each PO BID 09/03/19 fenofibrate nanocrystallized 145 mg tablet 145 mg PO LUNCH #90 tablet 12/06/19 gabapentin 600 mg tablet 1,200 mg PO QHS tablet 12/16/19 metoprolol succinate 50 mg tablet,extended release 24 hr 50 mg PO DAILY 12/16/19 finasteride 5 mg tablet 5 mg PO DAILY@1200 12/22/19 losartan 50 mg tablet 50 mg PO BID #180 tablet 02/24/20 Amlodipine Besylate [Norvasc] 5 mg PO DAILY 03/10/20 Cyanocobalamin [Vitamin B12] 1,000 mcg IM Q30D 03/10/20 fluticasone fur. 100 mcg-umeclid 62.5 mcg-vilant 25 mcg inhalat.powder 1 inh INHALATION DAILY #3 each 05/23/20 Aspirin E.C. [Ecotrin] 81 mg PO MOWEFR@0800 07/14/20 Pravastatin Sodium 40 mg PO QHS 07/14/20 amiodarone 200 mg tablet 200 mg PO DAILY #90 tablet 08/09/20 Cranberry Fruit Concentrate [Azo Cranberry] 1 tablet PO DAILY 09/04/20 Metformin HCl [Glucophage] 500 mg PO DAILY 09/04/20 Primary Care Physician: Fany Hobson DO [Primary Care Provider] - Test Results: Test results from this visit will be discussed in further detail at your follow- up appointment, if applicable. Please Follow Up With: Gloria Chatman DPM When: within one week at [facility]. Call [phone] Proposed Discharge Date: 10/06/20
--- NOTE | 2020-10-06 09:10 | AMP_PTH ---
PATIENT: JV DURHAM Jr. [place] [facility] [place][id number] AGE/SX: 75/M ROOM: RE10/06/[address]: Dr. Gloria Chatman DPM : 1945 BED: DIS: 10/06/2020 SPEC #: [id number] RECD: 10/06/20 10:56 STATUS: ELIZABETH REQ #: [id number] ROXANA: 10/06/20 09:[address]: Gloria Chatman DEPT: SURGICAL PATHOLOGY RECD BY: Candace Guido ENTERED: 10/06/20 11:13 SP TYPE: Amputation OTHR DR: Dr. Fany Hobson, DO Tissues: A - Toe, NOS B - Toe, NOS Procedures: Decalcification bone/plaque Surgery Specimen Level IV HEADER OPERATION: Partial vs full second toe amputation PRE-OP DIAGNOSIS: Hammertoe and ulcer left second toe TISSUE SUBMITTED: A - Left second toe soft tissue bone, B ? Left second toe clearance fragment MICROSCOPIC DIAGNOSIS A. Left second toe bone and tissue, amputation: Ulceration with associated acute and chronic inflammation. Bone with acute osteomyelitis. B. Left second toe clearance fragment bone, biopsy: Reparative and reactive change. No evidence of osteomyelitis. AM:armando 10/11/2020 MICROSCOPIC DESCRIPTION Slides are reviewed. GROSS DESCRIPTION A - Received in fixative is one container labeled with the patient's name and designated left second toe. The specimen consists of a distal toe with attached bone and soft tissue measuring 3 cm in length and approximately 1.5 cm in diameter. There appears to be an ulcer in the dorsal surface measuring 1.2 cm in greatest dimension. A medicare sales representative longitudinal section is submitted in one cassette after decalcification. B - Received in fixative is one container labeled with the patient's name and designated left second toe clearance fragment. The specimen consists of two irregular fragments of leary bone that in aggregate measure 1.5 x 1 x 0.3 cm. The specimen is sectioned and totally submitted in one cassette after decalcification. / AM:armando 10/06/20 TC:2 CPT: 73945 x2, 41860 x2
--- NOTE | 2020-10-06 09:10 | RAD_ITS ---
STUDY: X-RAY - LEFT FOOT CLINICAL: Second toe amputation. TECHNIQUE: 3 intraoperative images of the foot. COMPARISON: Radiographs 07/15/2020. FINDINGS: There is interval development of amputation of the second toe at the level of the mid proximal phalangeal diaphysis. There is a previous amputation of the great toe. 4 seconds of fluoroscopy time was used. Electronically Signed: Alexis Scott MD at 11:46 EDT Tel , Service support , RAD/Foot 2 Views
[2020-10-06] MEDS: Lidocaine 1% (30 ml sdv) 30 ML Vial (09:15)
[2020-10-06] MEDS: Bupivacaine Mpf 0.5% 30 ML VIAL (09:15)
--- NOTE | 2020-10-06 09:53 | OP.PCM_ITS ---
Problem List (1) Chronic ulcer of left foot with fat layer exposed Status: Chronic (2) Hammer toe of left foot Status: Acute Report of Operation Date of Procedure: 10/06/20 Pre-Operative Diagnosis: hammer toe left second. non healing ucer left second toe Post-Operative Diagnosis: hammer toe left second. non healing ucer left second toe Surgery/Procedure Performed:: partial left second toe amputation Description of Surgical Findings:: Hemostasis: Well-padded pneumatic left ankle tourniquet, 150 mmHg, 15 minutes Materials: 3-0 Vicryl, 3-0 nylon Complications: None Specimens sent Findings: No purulence, necrosis or devitalized tissue at the amputation level after irrigation The patient tolerated the procedure and anesthesia well. The patient was transported to the PACU with vital signs stable and vascular status intact to the surgical limb. To ice and elevate for pain and inflammation management. Postoperative x-rays were reviewed prior to leaving the operating room demonstrating adequate resection of the left second toe without acute injuries, foreign body, or osseous destruction. Postoperative orders were entered electronically. He will be discharged home today. order entry specialist: yes - Surgeon: Gloria Chatman DPM. Blind Teacher: Darren Villeda PGY2, DPM Type of Anesthesia:: MAC/Supplemental/Local - Preoperative: One-to-one mixture of 1% lidocaine plain and 0.5% Marcaine plain administered in typical left second toe block fashion, 5 cc Specimen's removed: 1. Soft tissue and bone left toe sent to pathology. 2. Soft tissue and bone left toe sent to microbiology (aerobic, anaerobic, acid- fast, fungal). 3. Left second toe clearance fragment bone sent to pathology. 4. Left second toe clearance fragment bone sent to microbiology (aerobic, anaerobic, acid-fast, fungal Estimated Blood Loss (mL): < 25 mL Description of Procedure: Indications: This 75-year-old male with significant past medical history of diabetes with peripheral neuropathy, prostate cancer, anemia, hypertension, Parkinson's, cardiac disease including arrhythmia continues to have delayed healing of his left second distal toe. It is noted he had a prior hallux amputation which healed but now his significant hammertoe deformity is causing him to walk on the dorsal aspect of his distal adjacent second toe. He also is probing to bone and previous point and he was also treated for cellulitis successfully with oral antibiotics. He has participated in standard wound care including offloading, serial debridements, infection management, nutrition recommendations and dressing care. He does not appear to have clinical signs of infection at this time. X-rays demonstrated significant dorsal contraction of the left second toe including subluxation the plantar aspect of the distal interphalangeal joint level. No he osseous destruction was noted, soft tissue emphysema or foreign body. He does have capillary fill time is brisk to this toe and has some chronic edema. His medical preoperative H&P clearance was reviewed by his primary care physician, Dr. Hobson. His preoperative diagnostic data including CBC, CMP, and EKG were reviewed as well. The preoperative indication, planned procedure, possible benefits, risk, complications, and anticipated healing time and management were discussed in detail. No guarantees were made. He understands risk and complications include but are not limited to the following: pain, swelling, scarring, need for further surgery, floating toe, development of gangrene, recurrent infection, blood clot, allergic reaction, loss of limb, function, life. He understands and elects to proceed with surgery at this time. He also understands he is having a procedure performed during COVID-19 pandemic and there is an inherent risk by being present in a hospital facility. He understands precautions and regulations are all followed at this facility to avoid exposure. The benefits outweigh the risks at this time for this is not an elective procedure. This is medically n ecessary and is a limb salvage procedure. Informed surgical consent and surgical limbs were signed. I answered all of his questions to his satisfaction. Procedure detail: The patient was transported to the operating room via cart and placed on the operating table in supine position. Final verification of patient, surgery, limb designation was performed via the timeout procedure. A well padded pneumatic left ankle tourniquet was placed. Preoperative local anesthetic was administered by the podiatry team. MAC anesthesia was initiated by the anesthesia team. He received his IV antibiotic after the clearance fragment was obtained later in the case. The left hip was bumped to allow good surgical exposure. The left lower extremity was prepped and draped in the usual aseptic manner. Esmarch bandage was used to exsanguinate the limb the tourniquet was applied at this time. Surgery proceeded the following manner: Attention was first directed to the left foot in which a fishmouth incision was made to the second toe proximal to the nonviable and ulcerative tissue. This was made to the bone and this tissue was removed in total from the table and this disarticulation was performed at the proximal interphalangeal joint level. This was sent to pathology and microbiology. Saline copious irrigation was performed at this time. Clean instrumentation was used to reflect the exposed proximal phalanx and a sagittal saw was used to resect the proximal phalanx head. This level of tissue was used as a clearance fragment and was also sent to microbiology and pathology. The tissue at this level was healthy, bleeding, without purulence, necrosis or delayed perfusion. The stump site was remodeled and the tissue was mobilized to allow a non tension closure. Pressure was gently applied to maintain hemostasis and there was no pulsatile bleeding. Minimal electrocauterization was performed. Minimal Vicryl stitch was placed to reapproximate deep tissue. The skin was reapproximated utilizing simple suture technique with nylon sutures utilizing no touch technique. Postoperative x-ray was obtained as noted. Adaptic soaked in Betadine were applied to the amputation site. Additional dressing consisting of 4 x 4 gauze, and Kerlix, and Maycol wrap were applied. After procedure: The patient tolerated the procedure and anesthesia well. He was transported to the PACU with vital signs stable and vascular status intact to the left lower extremity. Postoperative x-rays were reviewed as noted. He had pathology and microbiology specimens sent including clearance fragments of the amputation site. These results are pending. He was advised to heel weight-bear in bilateral surgical shoe for transfers only on a minimal basis. To ice and elevate for pain inflammation management. He defers narcotic pain medication prescription and will take Tylenol if needed for pain. It is noted he does have some neuropathy. Postoperative orders were entered electronically. He will be discharged home today and will follow up with the [facility] center next week. Gloria Chatman DPM, [facility] Grafts/Implants Used: none - Complications none - Admit VTE Documentation VTE Present on Admission: No VTE Mechan Device Prophylaxis: SCD's VTE Pharm Prophylaxis ordered?: No Reason prophylaxis not ordered:: Procedure Not Indicated
[2020-10-06 10:00] VITALS: BP 125/60; BP 131/59; PULSE 57; RESP 16; TEMP 36.2; O2SAT 95
[2020-10-06 10:05] VITALS: BP 125/60; BP 125/75; PULSE 62; RESP 16; O2SAT 95
[2020-10-06 10:15] VITALS: BP 118/75; BP 125/60; PULSE 51; RESP 16; O2SAT 94
[2020-10-06 10:16] VITALS: BP 117/60; BP 125/60; PULSE 55; RESP 16; TEMP 36.6; O2SAT 95
[2020-10-06 11:19] VITALS: BP 110/51; BP 125/60; PULSE 59; RESP 20; TEMP 36.4; O2SAT 96
== END 2020-10-06 11:29 | disposition home or self-care (01) ==
LOC: SDC 07:00 → AC 07:02
PROVIDERS: PCP Internal Medicine; Visit Provider Podiatrist
DX: E11.621 Type 2 diabetes mellitus with foot ulcer (principal); L97.522 Non-pressure chronic ulcer of other part of left foot with fat layer exposed; M20.42 Other hammer toe(s) (acquired), left foot; E11.51 Type 2 diabetes mellitus with diabetic peripheral angiopathy without gangrene; G20 Parkinson's disease; I48.91 Unspecified atrial fibrillation; J44.9 Chronic obstructive pulmonary disease, unspecified; I10 Essential (primary) hypertension; D50.9 Iron deficiency anemia, unspecified; K21.9 Gastro-esophageal reflux disease without esophagitis; M19.90 Unspecified osteoarthritis, unspecified site; G47.33 Obstructive sleep apnea (adult) (pediatric); E66.9 Obesity, unspecified; Z68.41 Body mass index [BMI] 40.0-44.9, adult; Z22.322 Carrier or suspected carrier of Methicillin resistant Staphylococcus aureus; I25.2 Old myocardial infarction; Z87.891 Personal history of nicotine dependence; Z79.84 Long term (current) use of oral hypoglycemic drugs; Z79.82 Long term (current) use of aspirin; Z79.899 Other long term (current) drug therapy; Z95.1 Presence of aortocoronary bypass graft; Z95.5 Presence of coronary angioplasty implant and graft
CPT/HCPCS: 01480; 28825; 73620; 76000; 82962; 87015; 87070; 87075; 87077; 87102; 87116; 87186; 87205; 87206; 88305; 88311; A4216

== ENCOUNTER → 2020-11-09 11:00 | Outpatient (CLI) | payer MEDICARE, OTHER, SELFPAY ==
[2020-09-15 11:11] VITALS: BMI 41.5
== END ==
PROVIDERS: PCP Internal Medicine; Visit Provider Internal Medicine Critical Care Medicine
DX: G47.33 Obstructive sleep apnea (adult) (pediatric) (principal); C34.12 Malignant neoplasm of upper lobe, left bronchus or lung; D50.0 Iron deficiency anemia secondary to blood loss (chronic); N18.30 Chronic kidney disease, stage 3 unspecified; D63.1 Anemia in chronic kidney disease
CPT/HCPCS: 36591; 82728; 83540; 83550; 85025; 98960; G0463

== ENCOUNTER → 2020-11-17 12:19 | Outpatient (CLI) | payer MEDICARE, OTHER, SELFPAY ==
[2020-05-09 10:06] VITALS: BMI 40.6
[2020-11-09 13:30] VITALS: BMI 42.3
--- NOTE | 2020-11-17 12:51 | PR.ITP_ITS ---
General Information - General Information Admitting Diagnosis: COPD GOLD CLassification II:moderate Gold Classification:: GOLD 2: Moderate Special Needs: Cancer of upper left lung, Adenocarcinoma of lung Stage 1 Oxygen: Home oxygen use 06/01 - PFT FEV1:: 1.22 - 39 % predicted FVC:: 2.54 - 59 % predicted FEV1/FVC%:: 48 - 66% predicted - Education/Goals Barriers to Learning: Hearing Impairment, Vision Impairment Individual Counseling: Initial Assessment: Dyspnea control techniques at rest, a ctivity, and ADLs, O2, Rx, system, safety, ADL management and pacing, Nutrition & weight management Patient Goals: Increase endurance/stamina: Initial Assessment, Control yassine c/anxiety: Initial Assessment, Improve diet and nutrition: Initial Assessment, Improve weight: Initial Assessment Exercise - Initial Assessment - Visit Date of Eval: 11/17/20 - Problem/Goals Problems: Deconditioning, No regular exercise, Knowledge deficit exercise guidelines, Knowledge deficit exercise safety Goals:: OH: 2-3/wk - Physician Prescribed Exercise Modalities: NuStep, SciFit Frequency (days/week): 3 Duration (Minutes):: 30-45 Intensity: 60-80% of age predicted maximum heart rate reserve Target Heart Rate:: 87-116 - Plan Plan and Plan to Review:: Benefits of exercise, Core components of exercise, How to measure dyspnea level, How to monitor dyspnea level, Exercise intensity, Exercise safety guideline, Home exercise guidelines, Duglas: 3-4/-13 Disease Management - Initial - Problems/Goals-Hypoxemia Hypoxemia Problems:: Hypoxemia Hypoxemia Goals:: Hypoxemia managed, Using O2 as Rx's safely - Problems/Goals-Medications Medication Goals: Correct technique/timing & care of MDI, DPI, nebulizer, and spacer. - Problems/Goals-Bronchial Hygiene Bronchial Hygiene Problems:: Respiratory infection Prevention/Management Bronchial Hygiene Goals:: Pt demonstrates effective cough, effective secretion clearance., Pt describes signs and symptoms of infection. - Initial Assessment SpO2:: 100 - 3 liters Port O2:: 3 DME:: Sana Does pt report taking home meds as prescribed?: Yes Medications: Yes MDI, Yes DPI, Yes Spacer Patient Reports:: Non-productive cough - Plans Hypoxemia Plan:: Monitor SpO2 rest & with exercise, Recommend appropriate FiO2 to Pt/MD, Assist to contact DME for O2, Train appropriate O2 use at rest, Train appropriate O2 use with exercise, Train O2 safety & systems Reviewed prescribed medications:: Purpose, Side effects Instruct correct technique/timing & care:: MDI, Return demo use of inhaler Bronchial Hygiene Plan: Vibratory PEP device, Hydration, Hand hygiene, Signs/symptoms to report: Psychosocial - Initial Assess - Problems/Goals Problems: Depression, Impaired Q.O.L. Psychosocial Goals: Improved Q.O.L. - Psychosocial Test Depression:: Impaired QOL Referred to MD for counseling:: No - Plan Reviewed screening results: Yes Instructions given regarding:: Benefits of exercise, Relaxation techniques, Training in coping strategies Tobacco - Initial Assessment - Stage of Change Stages of Change:: Action - Learning Barriers Learning Barriers: Vision, Ready to Learn - Family Support Do you have family support?: Yes - Tobacco Use Tobacco Use: Non-smoker - Education Gave Education Materials For:: Pulmonary Disease, Risk Factors, Breathing Techniques, Medical Compliance, Pulmonary A&P, Exacerbation Signs & Symptoms, Stress & Relaxation Tobacco - 30-Day Assessment Tobacco - 60-Day Assessment Tobacco - 90-Day Assessment Tobacco - Final Assessment Nutrition/Wt Mgmt - Initial - Problems/Goals Problems: Overweight - Weight Management Knowledge Deficit Management of:: Overweight Admit Height:: 5 ft 10 in Admit Weight:: 284 lb Admit BMI:: 40.7 - Diabetes Diabetes:: Yes Hgb A1C: 6.1 Insulin: No Do you monitor your blood sugar at home?: No - Intervention Referral to dietitian:: Yes Referral to Diabetic Clinic:: Yes Will attend diet classes:: No - Plan Nutrition Plan: Yes Nutrition education class:, Yes Weight control education class: Patient Health Questionnaire Initial Assessment 1. Little interest or pleasure in doing things: Several days 2. Feeling down, depressed, or hopeless: Not at all 3. Trouble falling or staying asleep, or sleeping too much: Several days 4. Feeling tired or having little energy: Nearly every day 5. Poor appetite or overeating: Nearly every day 6. Feeling bad about yourself -- or that you are a failure or have let yourself or your family down: Not at all 7. Trouble concentrating on things, such as reading the newspaper or watching television: Not at all 8. Moving or speaking so slowly that other people could have noticed. Or the opposite - being so fidgety or restless that you have been moving around a lot more than usual: More than half the days - mostly due to his Parkinson's 9. Thoughts that you would be better off , or of hurting yourself in some way: Not at all How difficult have these problems made it for you to do your work, take care of things at home, or get along with other people?: Very difficult Total Score: 10 COPD Knowledge Test Initial COPD is a lung disease that:: Makes it hard to breathe & gets worse over time In the [place] the term COPD describes 2 main lung conditions:: Emphysema & chronic bronchitis The most common lung irritant that causes COPD is:: Cigarette smoke Common signs and symptoms of COPD include:: An ongoing cough/cough that produces a large amount of mucus, & SOB If you have COPD, what steps can you take?: Quit smoking & avoid secondhand smoke Swelling of the ankles is common in COPD:: False Fatigue [tiredness] is common in COPD:: True Wheezing is common in COPD:: True Crushing chest pain is common in COPD:: True Rapid weight loss is common in COPD:: False Breathlessness is a normal response to exercise: True Exercise should be avoided if it makes you short of breath: False All bronchodilators act within 10 minutes: False A spacer device increases the medication to the lungs: True Annual flu vaccine is recommended for pts w/lung disease: True COPD Knowledge Test Total Score:: 13 COPD Assessment Test [CAT] - Questions Never cough = 0, Cough all the time = 5: 2 No phlegm = 0, Chest full of phlegm = 5: 2 No chest tightness = 0, Chest very tight = 5: 1 No breathless w/exertion = 0, Very breathless w/exertion = 5: 5 No limitations w/activity = 0, Very limited w/activity = 5: 5 Confident leaving home = 0, Not at all confident = 5: 4 Sleep soundly = 0, Don't sleep soundly = 5: 5 Lots of energy = 0, No energy at all = 5: 4 Total CAT score:: 28 Self-Efficacy Initial Assessment We would like to know how confident you are in doing certain activities. Please select your confidence level for:: Select your confidence level for the followi ng using the scale 1-10 where 1 is not at all confident and 10 is totally confident. Your score is the average of all 6 responses. Fatigue: How confident are you that you can keep the fatigue caused by your disease from interfering with the things you want to do? Select Number: 5 Physical Discomfort or Pain: How confident are you that you can keep the physical discomfort or pain of your disease from interfering with the things you want to do? Select Number: 10 Emotional Distress: How confident are you that you can keep the emotional distress caused by your disease from interfering with the things you want to do? Select Number: 8 Other Symptoms or Health Problems: How confident are you that you can keep other symptoms or health problems from interfering with the things you want to do? Select Number: 3 Different Tasks and Activities: How confident are you that you can do the different tasks and activities needed to manage your health condition so as to reduce your need to see a doctor? Select Number: 3 Medication: How confident are you that you can do things other than just taking medication to reduce how much your illness affects your everyday life? Select Number: 9 Total Score:: 6 Nutrition Survey - Nutrition Survey Initial Have you lost >10 lbs over the past 2 months without trying?: No Are you following a special diet at home for diabetes, low fat, or low salt?: Yes Are you interested in meeting with a dietitian for help understanding your diet?: Yes Do you eat less than 3 meals a day?: Yes Do you eat fatty meats (cruz, sausage, ribs, etc), fried foods, desserts, large amounts of salad dressings, margarine, butter, or cheese most days?: Yes Do you have food allergies? [Enter types in comment field]: No Do you eat in restaurants more than 3 times a week?: No Do you season food with salt, seasoning salt, or garlic salt?: No Do you used canned, boxed, frozen meals, or soups, seasoning packets?: Yes Total Score:: 5
--- NOTE | 2020-11-17 12:52 | PR.HP_ITS ---
History of Present Illness Arrival date:: 11/17/20 Arrival time:: 12:45 Date of Referral:: 10/19/20 Date of Evaluation: 11/17/20 Referring Physician: Suresh Sotrm Primary Diagnosis: COPD Gold Classification II: Moderated History of Present Illness: GOLD Classification II: Moderate mMRC Breathless Scale: When is the patient short of breath? Y/N Grade: Description of Breathlessness: 0 I only get breathless with strenuous exercise. 1 I get short of breath when hurrying on level ground or walking up a slight hill. 2 On level ground, I walk slower than people of the same age because of breathless, or have to stop for breath when walking at my own pace. 3 I stop for breath after walking 100 yards or after a few minutes on level ground. 4 I am too breathless to leave the house or I am breathless when dressing. Respiratory Problems: Yes: Fatigue, Wheezing, Panic, Dyspnea with Activity, Dyspnea Lying Down Flat - Secretions Thick:: No Thin:: No Amount/Day:: minimal in the mornings m AM: Yes PM: No Night Time: No A.T.C.: No Hx of Sleep Apnea: Yes Do you snore loudly (louder than talking or can be heard through closed doors)?: Yes Do you often feel tired/ fatigued/ sleepy during daytime?: Yes Has anyone observed you stop breathing during sleep?: No History of Hypertension (for STOP score): No - Patient has previous HEBER and has CPAP unit at home. STOP Results: Positive Home Medications: Home Medications folic acid 1 mg PO DAILY@1200 05/06/13 pramipexole 0.5 mg PO TID 12/04/16 docusate sodium 100 mg capsule 100 mg PO BID cap 10/20/17 ferrous sulfate 65 mg PO DAILY 02/01/19 cholecalciferol (vitamin D3) 125 mcg (5,000 unit) capsule 5,000 unit PO DAILY 03/30/19 tamsulosin 0.4 mg PO QHS 07/12/19 omeprazole 20 mg PO BID 09/03/19 vitamins A,C,F-runw-djrrga 1 each PO BID 09/03/19 fenofibrate nanocrystallized 145 mg tablet 145 mg PO LUNCH #90 tablet 12/06/19 gabapentin 600 mg tablet 1,200 mg PO QHS tablet 12/16/19 finasteride 5 mg tablet 5 mg PO DAILY@1200 12/22/19 losartan 50 mg tablet 50 mg PO BID #180 tablet 02/24/20 amlodipine 5 mg PO DAILY 03/10/20 cyanocobalamin (vitamin B-12) 1,000 mcg IM Q30D 03/10/20 fluticasone fur. 100 mcg-umeclid 62.5 mcg-vilant 25 mcg inhalat.powder 1 inh INHALATION DAILY #3 each 05/23/20 aspirin 81 mg PO MOWEFR@0800 07/14/20 pravastatin 40 mg PO QHS 07/14/20 amiodarone 200 mg tablet 200 mg PO DAILY #90 tablet 08/09/20 cranberry fruit concentrate 1 tablet PO DAILY 09/04/20 metformin 500 mg PO DAILY 09/04/20 furosemide 40 mg tablet 40 mg PO DAILY #90 tab 10/17/20 metoprolol succinate 50 mg tablet,extended release 24 hr 50 mg PO DAILY #90 tab 10/17/20 Allergies/Adverse Reactions: Allergies No Known Allergies Allergy (Verified 11/09/20 13:34) Medical Utilization Do you use a peak flow meter at home?: No Do you use a spacer device with your inhalers?: No Number of hospital visits in the last year?: 2 Number of emergency room visits in the last year?: 2 Do you see your physician on a regular schedule?: Yes How often?: 3 months Advanced Directives - Advanced Directives Power of Lithographic Artist: Yes Living Will: Yes Advance Directives Information Provided: No Advance Directives on File: Yes DNR Order?:: Yes - MOLST See MOLST form: No Past Medical History - Covid-19 Screening Fever: No Unexplained muscle aches: No Current respiratory symptoms: No Upper respiratory infections symptoms: No Gastro-intestinal symptoms: No Has tested positive for COVID-19 in last 30 days: No Date of testin11/17/20 - Patient is full vaccinated for COVID-19 Had contact w/person w/symptoms or Covid-19 (+) last 14 days: No Has High Risk Exposures ID'd by Health dept/Inf Control team: Yes 65 years or older:: Yes Lives in Assisted Living facility:: No Has a chronic lung disease or moderate to severe asthma:: Yes Has a serious heart condition:: Yes Immunocompromised:: No Severely obese (Body Mass Index of 40 or higher):: Yes Diabetic:: Yes Medical History: Past Medical History (Last Updated 11/09/20 @ 13:44 by Dagmar Strickland) Acute kidney injury N17.9 Adenocarcinoma of lung, 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 Hyperlipidemia E78.5 Iron deficiency anemia due to chronic blood loss D50.0 Gastric AVMs, September 2017 Longstanding persistent atrial fibrillation I48.11 Multiple premature ventricular complexes I49.49 NSTEMI (non-ST elevated myocardial infarction) Onset Date: 12/02/19 I21.4 09/2017, 05/2018, 06/2019, 11/2019 HEBER (obstructive sleep apnea) G47.33 Parkinsons G20 Pneumonia J18.9 Polyp of colon, adenomatous D12.6 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 C34.12 Respiratory failure with hypoxia J96.91 Right ventricular dilation, secondary I51.7 Right ventricular systolic dysfunction I51.9 Secondary pulmonary arterial hypertension I27.21 Sepsis A41.9 Sepsis A41.9 Severe sepsis A41.9, R65.20 SURGICAL REMOVAL LEFT GREAT TOE Toe osteomyelitis M86.9 Surgical History: Past Surgical History (Last Reviewed 11/09/20 @ 13:35 by Dagmar Strickland) H/O coronary artery bypass surgery Onset Date: 02/14/06 Z95.1 CABG x 2 HERRERA-LAD, SVG-OM 02/14/2006 History of cardioversion Onset Date: 12/2016 Z98.890 History of colonoscopy Onset Date: 03/22/20 Z98.890 History of coronary artery stent placement Onset Date: 12/23/06 Z95.5 EBQ-JGI-LCNM anastomosis-LAD w/ Taxus 2.75 x 8 mm and POBA-PDA 12/23/2006 History of esophagogastroduodenoscopy Onset Date: 03/22/20 Z98.890 History of hammer toe correction Z98.890, Z87.39 bilateral History of left heart catheterization Onset Date: 05/10/13 Z98.890 History of lobectomy of lung Z90.2 left History of open reduction and internal fixation (ORIF) procedure Z98.890 right History of open reduction and internal fixation (ORIF) procedure Z98.890 right elbow with nerve transplant History of right and left heart catheterization Onset Date: 12/04/16 Z98.890 History of tonsillectomy and adenoidectomy Z98.890 Status post insertion of iliac artery stent Onset Date: 08/04/12 Z95.828 Bilateral iliac artery stents 08/04/12 Status post surgical removal of neoplasm of skin Z98.890 right side of neck/jaw Family History: Family History (Last Reviewed 11/09/20 @ 13:35 by Dagmar Strickland) Sister Alcoholism Cancer Mother Arthritis Father Arthritis Brother Cancer Social History - Smoking History Smoking Status: Former smoker Hx Tobacco Use: No Hx Smoking Exposure: No - Alcohol Use Alcohol Usage: No - use to drink wine - Substance Abuse Hx Substance Use: No - Occupation Occupation (List type of work in comments):: Retired - Hobbies, Recreation, Social Activities Recreational Activities: I can hardly do any recreational activities, I cannot do any recreational activities at all Functioning ADL/IADL - Current Ability Current Ability: Dependent Ambulation - walker, wheelchair, Needs some help Self-Care (e.g.,grooming, dressing, & bathing), Needs some help Transfer, Needs some help Household tasks (e.g., light meal prep, laundry, shopping) - Pt Functioning Prior to Problem Prior Functioning: Self-Care (e.g.,grooming, dressing, & bathing): Needs some help - occasionally requires assixtance from his ., Ambulation: Dependent - walker, wheelchair, seated bench while showering, Transfer: Needs some help, Household tasks (e.g., light meal prep, laundry, shopping): Needs some help Social Environment - Status Marital Status: - Current Living Arrangements Living Environment:: Spouse - Children How many children do you have?: 2 Do any of your children live nearby?: Yes - [place] and [place] - Safety Do you feel safe in your surroundings?: Yes - Assistance Do you need any assistance at home?: [facility] may be lending home care provider. Review of Systems Review of Systems: Right click = Denies (Slash). Left click = Reports (Tetlin) Respiratory: Reports: SOB upon Exertion, Appetite, Normal, Dizziness/Lightheadedness, Fatigue, Sleep, Normal. Denies: Cough, SOB at Rest, Sputum production, Sexual changes Is Patient Pain Free?: Yes Pain Location: lower extremity - knees, legs, feet Pain Level: 10/23 Risk Factor Assessment - Vital Signs Temperature: 97.5 F Pulse Rate: 70 Pulse Rhythm: Regular Respiratory Rate: 18 Pulse Ox: 100 - 3 liters Blood Pressure: 100/66 - Diabetes Diabetic History: Type II - [place] Diabetic - Obesity Height: 5 ft 10 in Weight:: 284 lb Weight in Pounds: 284.0 lbs Weight Source: Wheelchair Body Mass Index (BMI): 40.7 Nutritional Referral for Obesity: Yes - Why Weight, Nutrition Therapy and DSMNT & MNT programs - Physical Activity Physical Inactivity: None - Risk Stratification Risk Guidelines: Lowest Risk: Risk Factor for Smoking, Risk Factor for Diabetes, Risk Factor for Hypertension, Moderate Risk: Risk Factor for Dyslipidemia, Risk Factor for Depression, Highest Risk: Risk Factor for Obesity, Risk Factor for Sedentary Lifestyle Motivation - Motivation to Participate On a scale of 1 to 10, how prepared are you to commit to attending program?: 10 What do you see as barriers to successfully being able to complete the program?: none What do you see as the benefits of succesfully completing the program? In other words, what do you hope to get out of participating in the program?: healthier, getting better, regaining some strength Are there issues you are dealing with that will interfere with completing the program?: none Do you have a spouse or signficant other, family or friends who will help support you to complete the program?: yes Diagnostic Data Review - Pulmonary Function Test FEV1:: 1.22 - 39% predicted FVC:: 2.54 - 59% predicted FEV1/FVC%:: 48 - 66% predicted Gold Classification: GOLD class II(mod. COPD)with FEV1/FVC <70%, 50%</= FEV1< 50% predicted
[2020-11-17 13:50] VITALS: O2SAT 100; BMI 40.7
[2020-11-17 13:56] VITALS: BP 100/66; PULSE 70; RESP 18; TEMP 36.4; O2SAT 100; BMI 40.7
== END ==
PROVIDERS: PCP Internal Medicine; Referring Provider Internal Medicine Critical Care Medicine; Visit Provider Internal Medicine Critical Care Medicine
DX: J44.9 Chronic obstructive pulmonary disease, unspecified (principal)

== ENCOUNTER 2020-12-13 14:30 | Outpatient (RCR) | payer MEDICARE, OTHER, SELFPAY ==
[2020-11-17 13:56] VITALS: BMI 40.7
== END 2020-12-13 23:59 ==
LOC: PR 14:30
PROVIDERS: PCP Internal Medicine; Referring Provider Internal Medicine Critical Care Medicine; Visit Provider Internal Medicine Critical Care Medicine
DX: J44.9 Chronic obstructive pulmonary disease, unspecified (principal)
CPT/HCPCS: 97150; G0424

== ENCOUNTER 2021-01-08 09:00 | Outpatient (RCR) | payer MEDICARE, OTHER, SELFPAY ==
[2020-11-23 11:06] VITALS: BMI 42.3
[2021-01-01 13:03] VITALS: BMI 42.6
== END 2021-01-13 23:59 ==
LOC: NS 09:00
PROVIDERS: PCP Internal Medicine; Visit Provider Internal Medicine Critical Care Medicine
DX: I12.9 Hypertensive chronic kidney disease with stage 1 through stage 4 chronic kidney disease, or unspecified chronic kidney disease (principal); K21.9 Gastro-esophageal reflux disease without esophagitis; N18.30 Chronic kidney disease, stage 3 unspecified; E78.5 Hyperlipidemia, unspecified
CPT/HCPCS: 97802

== ENCOUNTER 2021-01-12 14:30 | Outpatient (RCR) | payer MEDICARE, OTHER, SELFPAY ==
[2020-11-23 11:06] VITALS: BMI 42.3
--- NOTE | 2020-12-20 09:33 | PCM.PR.TP ---
General Information - General Information Admitting Diagnosis: COPD Gold classification II, moderate Gold Classification:: GOLD 2: Moderate Special Needs: cancer of upper left lung, Adenocaricinoma of lung stage 1 Oxygen: home oxygen 06/01 - PFT FEV1:: 1.22 FVC:: 2.54 - Education/Goals Barriers to Learning: Hearing Impairment, Vision Impairment Individual Counselin-Day Assessment: Dyspnea control techniques at rest, activity, and ADLs, ADL management and pacing, Nutrition & weight management Patient Goals: Increase endurance/stamina: 30-Day Assessment, Improve diet and nutrition: 30-Day Assessment, Improve weight: 30-Day Assessment Exercise - 30-Day Assessment - Physician Prescribed Exercise Modalities: NuStep Frequency (days/week): 3 Duration (Minutes):: 30-45 Intensity: 60-80% of age predicted maximum heart rate reserve Aerobic Exercise [30-60 min 3-7x/week]:: Progressing Target heart rate: 87-116 METs - Progression: 0.5-1.0 MET, RPE 11-14 WEEK: 2 Disease Management - 30-Day - Hypoxemia Reassessment: Using O2 as prescribed, Has home O2 as prescribed - Medications Medication list reviewed:: Yes - Bronchial Hygiene Bronchial Hygiene Plan: Yes Pt demonstrates correctly for effective cough Psychosocial - 30-Day - Assessment Reassessment: Management of stress & depression Tobacco - Initial Assessment Tobacco - 30-Day Assessment - Stage of Change Stages of Change:: Action - Family Support Do you have family support?: Yes - Education Gave Education Materials For:: Tobacco Triggers, Pulmonary Disease, Risk Factors, Breathing Techniques, Medical Compliance, Pulmonary A&P, Exacerbation Signs & Symptoms, Stress & Relaxation Tobacco - 60-Day Assessment Tobacco - 90-Day Assessment Tobacco - Final Assessment Nutrition/Wt Mgmt - 30-Day - Weight Management Weight:: 128.82 kg Weight Goals Progress:: Progressing Patient Health Questionnaire 30-Day Re-eval Assessment 1. Little interest or pleasure in doing things: Several days 2. Feeling down, depressed, or hopeless: Not at all 3. Trouble falling or staying asleep, or sleeping too much: Several days 4. Feeling tired or having little energy: Nearly every day 5. Poor appetite or overeating: Nearly every day 6. Feeling bad about yourself -- or that you are a failure or have let yourself or your family down: Not at all 7. Trouble concentrating on things, such as reading the newspaper or watching television: More than half the days 8. Moving or speaking so slowly that other people could have noticed. Or the opposite - being so fidgety or restless that you have been moving around a lot more than usual: Not at all How difficult have these problems made it for you to do your work, take care of things at home, or get along with other people?: Very difficult Total Score: 10 COPD Assessment Test [CAT] - Questions Never cough = 0, Cough all the time = 5: 2 No phlegm = 0, Chest full of phlegm = 5: 2 No chest tightness = 0, Chest very tight = 5: 1 No breathless w/exertion = 0, Very breathless w/exertion = 5: 5 No limitations w/activity = 0, Very limited w/activity = 5: 5 Confident leaving home = 0, Not at all confident = 5: 4 Sleep soundly = 0, Don't sleep soundly = 5: 5 Lots of energy = 0, No energy at all = 5: 4 Total CAT score:: 28 Self-Efficacy 30-Day Re-eval Assessment We would like to know how confident you are in doing certain activities. Please select your confidence level for:: Select your confidence level for the following using the scale 1-10 where 1 is not at all confident and 10 is totally confident. Your score is the average of all 6 responses. Fatigue: How confident are you that you can keep the fatigue caused by your disease from interfering with the things you want to do? Select Number: 5 Physical Discomfort or Pain: How confident are you that you can keep the physical discomfort or pain of your disease from interfering with the things you want to do? Select Number: 10 Emotional Distress: How confident are you that you can keep the emotional distress caused by your disease from interfering with the things you want to do? Select Number: 8 Other Symptoms or Health Problems: How confident are you that you can keep other symptoms or health problems from interfering with the things you want to do? Select Number: 3 Different Tasks and Activities: How confident are you that you can do the different tasks and activities needed to manage your health condition so as to reduce your need to see a doctor? Select Number: 3 Medication: How confident are you that you can do things other than just taking medication to reduce how much your illness affects your everyday life? Select Number: 9 Total Score:: 6 Nutrition Survey
== END 2021-01-13 23:59 ==
LOC: PR 14:30
PROVIDERS: PCP Internal Medicine; Referring Provider Internal Medicine Critical Care Medicine; Visit Provider Internal Medicine Critical Care Medicine
DX: J44.9 Chronic obstructive pulmonary disease, unspecified (principal); I12.9 Hypertensive chronic kidney disease with stage 1 through stage 4 chronic kidney disease, or unspecified chronic kidney disease; K21.9 Gastro-esophageal reflux disease without esophagitis; N18.30 Chronic kidney disease, stage 3 unspecified; E78.5 Hyperlipidemia, unspecified
CPT/HCPCS: 97150; 97802; G0424

== ENCOUNTER 2021-01-31 14:30 | Outpatient (RCR) | payer MEDICARE, OTHER, SELFPAY ==
[2021-01-01 13:03] VITALS: BMI 42.6
--- NOTE | 2021-01-19 07:08 | PCM.PR.TP ---
Exercise - 60-Day Assessment - Physician Prescribed Exercise Modalities: NuStep Frequency (days/week): 3 Duration (Minutes):: 30-45 Intensity: 60-80% of age predicted maximum heart rate reserve Aerobic Exercise [30-60 min 3-7x/week]:: Progressing Target heart rate: 94-123 [place] METs - Progression: 0.5-1.0 MET, RPE 11-14 WEEK: 3.0 - Home Exercise Home Exercise:: No Disease Management - 60-Day - Hypoxemia Reassessment: Demonstrates knowledge of O2 Rx at rest, Demonstrates knowledge of O2 Rx with exercise, Using O2 as prescribed, Has home O2 as prescribed, Uses port O2 as prescribed - Medications Medication list reviewed:: Yes Taking medications 100% of the time:: Met Medication reassessment: Yes Pt demonstrates correct technique timing for MDI, Yes Pt demonstrates correct technique timing for DPI, Yes Pt demonstrates correct technique timing for NEB, Yes Pt demonstrates correct technique timing for spacer - Bronchial Hygiene Bronchial Hygiene Plan: Yes Pt demonstrates correctly for effective cough, Yes Pt demo correct for device - PEP therapy device, Yes Pt demo correct for improved hydration, Yes Pt demo correct for hand hygiene, Yes Pt demo correct for verbalize when to call MD Psychosocial - 60-Day - Assessment Depression reassess: Management of stress: Met, Management of depression: Met, Practicing interventions: Met Tobacco - Initial Assessment Tobacco - 30-Day Assessment Tobacco - 60-Day Assessment - Stage of Change Stages of Change:: Action - Learning Barriers Learning Barriers: Participates in education - Family Support Do you have family support?: Yes - Tobacco Use Tobacco Use: Non-smoker Do you use smokeless tobacco?: No - Intervention Smoking Cessation Referral:: No Individual Education/Counseling:: No Education Schedule Given:: Yes - Education Gave Education Materials For:: Pulmonary Disease, Risk Factors, Breathing Techniques, Medical Compliance, Pulmonary A&P, Exacerbation Signs & Symptoms, Stress & Relaxation Tobacco - 90-Day Assessment Tobacco - Final Assessment Nutrition/Wt Mgmt - 60-Day - Weight Management Weight Assessment:: Wt stable Weight:: 284 lb - BMI 40.7 Weight Goals Progress:: Referral to structured weight management program Patient Health Questionnaire 60-Day Re-eval Assessment 1. Little interest or pleasure in doing things: Several days 2. Feeling down, depressed, or hopeless: Not at all 3. Trouble falling or staying asleep, or sleeping too much: Several days 4. Feeling tired or having little energy: More than half the days 5. Poor appetite or overeating: More than half the days 6. Feeling bad about yourself -- or that you are a failure or have let yourself or your family down: Several days 7. Trouble concentrating on things, such as reading the newspaper or watching television: More than half the days 8. Moving or speaking so slowly that other people could have noticed. Or the opposite - being so fidgety or restless that you have been moving around a lot more than usual: Several days 9. Thoughts that you would be better off , or of hurting yourself in some way: Not at all How difficult have these problems made it for you to do your work, take care of things at home, or get along with other people?: Very difficult Total Score: 10 COPD Assessment Test [CAT] - Questions Never cough = 0, Cough all the time = 5: 2 No phlegm = 0, Chest full of phlegm = 5: 2 No chest tightness = 0, Chest very tight = 5: 5 No breathless w/exertion = 0, Very breathless w/exertion = 5: 5 No limitations w/activity = 0, Very limited w/activity = 5: 4 Confident leaving home = 0, Not at all confident = 5: 5 Sleep soundly = 0, Don't sleep soundly = 5: 4 Lots of energy = 0, No energy at all = 5: 5 - Patient assessed on 01/15/2021 possible exacerbation occurring, unit dose albuterol aerosol given patient sent home. Patient scheduled appointment with Dr. Storm for [place] 01/23/2021. Total CAT score:: 32 Self-Efficacy 60-Day Re-eval Assessment We would like to know how confident you are in doing certain activities. Please select your confidence level for:: Select your confidence level for the following using the scale 1-10 where 1 is not at all confident and 10 is totally confident. Your score is the average of all 6 responses. Fatigue: How confident are you that you can keep the fatigue caused by your disease from interfering with the things you want to do? Select Number: 5 Physical Discomfort or Pain: How confident are you that you can keep the physical discomfort or pain of your disease from interfering with the things you want to do? Select Number: 10 Emotional Distress: How confident are you that you can keep the emotional distress caused by your disease from interfering with the things you want to do? Select Number: 8 Other Symptoms or Health Problems: How confident are you that you can keep other symptoms or health problems from interfering with the things you want to do? Select Number: 5 Different Tasks and Activities: How confident are you that you can do the different tasks and activities needed to manage your health condition so as to reduce your need to see a doctor? Select Number: 7 Medication: How confident are you that you can do things other than just taking medication to reduce how much your illness affects your everyday life? Select Number: 9 Total Score:: 7 Nutrition Survey
== END 2021-02-13 23:59 ==
LOC: PR 14:30
PROVIDERS: PCP Internal Medicine; Referring Provider Internal Medicine Critical Care Medicine; Visit Provider Internal Medicine Critical Care Medicine
DX: J44.9 Chronic obstructive pulmonary disease, unspecified (principal)
CPT/HCPCS: 97150; G0424

== ENCOUNTER 2021-02-05 11:04 | Outpatient (RCR) | payer MEDICARE, OTHER, SELFPAY ==
[2021-01-01 13:03] VITALS: BMI 42.6
== END 2021-02-13 23:59 ==
LOC: NS 11:04
PROVIDERS: PCP Internal Medicine; Visit Provider Internal Medicine Critical Care Medicine
DX: I12.9 Hypertensive chronic kidney disease with stage 1 through stage 4 chronic kidney disease, or unspecified chronic kidney disease (principal); K21.9 Gastro-esophageal reflux disease without esophagitis; N18.30 Chronic kidney disease, stage 3 unspecified; E78.5 Hyperlipidemia, unspecified
CPT/HCPCS: 97802

== ENCOUNTER 2021-02-22 15:12 | Emergency (ER) | payer MEDICARE, OTHER, SELFPAY ==
[2021-02-22 15:13] VITALS: BP 141/68; PULSE 78; RESP 18; TEMP 38.6; O2SAT 95; BMI 41.4
[2021-02-22 16:10] LABS: ALB/GLOB Ratio 0.8 RATIO (0.9-2.4); AST(SGOT) 22 U/L (15-37); Alanine Aminotransfer ALT/SGPT 32 U/L (16-61); Albumin, Serum 3.1 g/dL (3.2-5.0); Alkaline Phosphatase 219 U/L (45-117); Anion Gap 7 (5-15); BUN 14 mg/dL (7-18); BUN/Creat Ratio 11.4 RATIO (10-20); Calcium,Total 8.4 mg/dL (8.5-10.1); Chloride 103 mmol/L (98-107); Creatinine, Serum 1.23 mg/dL (0.70-1.30); EST Glomerular Filtration Rate 61 mL/min (>60); Est Glom Filt Rate - Afr Amer 74 mL/min (>60); Estimated Creatinine Clearance 53.58 ml/min; Globulin 4.1 g/dL (2.2-4.2); Glucose 136 mg/dL (74-106); Potassium 3.9 mmol/L (3.5-5.1); Protein, Total 7.2 g/dL (6.4-8.2); Sodium Level 136 mmol/L (136-145)
--- NOTE | 2021-02-22 16:18 | EKG12_ITS ---
Test Reason : Blood Pressure : / mmHG Vent. Rate : 083 BPM Atrial Rate : 070 BPM P-R Int : 000 ms QRS Dur : 102 ms QT Int : 396 ms P-R-T Axes : 000 -69 027 degrees QTc Int : 465 ms Atrial fibrillation Left axis deviation Abnormal ECG Confirmed by CORTEZ CLEARY, ROGELIO ([id number]), web editor DAVID FLOWER ([id number]) on 02/26/2021 11:39:05 AM Referred By: JAIME Confirmed By:ROGELIO TORO MD
--- NOTE | 2021-02-22 16:20 | EX.ED.DYSGE1 ---
HPI History of Present Illness Chief Complaint: Shortness of Breath Informant: patient and spouse/S.O. Onset/Context/Timing Onset: Days Context: Gradual Onset Current Severity: Mild Maximum Severity: Moderate Narrative Narrative: Patient presents with fever and shortness of breath. Patient was started on antibiotic for UTI 1 week ago. He states his fevers initially improved but have now been worsening again over the past couple days. He is also had increasing shortness of breath. No significant cough. Patient does wear chronic home O2 secondary to a history of COPD per his report. Patient does have a history of paroxysmal A. fib but is not on anticoagulants. [facility] Medical History Acute kidney injury Adenocarcinoma of lung, stage 1 Alcohol dependence Amputated great toe of left foot Amputation of one or more toes Atherosclerosis of coronary artery of [place] heart without angina pectoris Benign essential hypertension Cancer of upper lobe of left lung Chronic gastritis Dementia Diverticular disease Essential tremor Gastric AVM GERD (gastroesophageal reflux disease) GI bleed Hyperlipidemia Iron deficiency anemia due to chronic blood loss Longstanding persistent atrial fibrillation Multiple premature ventricular complexes NSTEMI (non-ST elevated myocardial infarction) (12/02/19) HEBER (obstructive sleep apnea) Parkinsons Pneumonia Polyp of colon, adenomatous 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 Respiratory failure with hypoxia Right ventricular dilation, secondary Right ventricular systolic dysfunction Secondary pulmonary arterial hypertension Sepsis Sepsis Severe sepsis SURGICAL REMOVAL LEFT GREAT TOE Toe osteomyelitis Home Medications folic acid 1 mg PO DAILY@1200 05/06/13 [History Last Taken 07/14/20] pramipexole 0.5 mg PO TID 12/04/16 [History Last Taken 10/06/20] docusate sodium 100 mg capsule 100 mg PO BID cap 10/20/17 [History Last Taken 07/14/20] ferrous sulfate 65 mg PO DAILY 02/01/19 [History Last Taken 07/14/20] cholecalciferol (vitamin D3) 125 mcg (5,000 unit) capsule 5,000 unit PO DAILY 03/30/19 [History Last Taken 07/14/20] tamsulosin 0.4 mg PO QHS 07/12/19 [History Last Taken 07/13/20] omeprazole 20 mg PO BID 09/03/19 [History Last Taken 10/06/20] vitamins A,C,I-cpra-gquhjq 1 each PO BID 09/03/19 [History Last Taken 07/14/20] gabapentin 600 mg tablet 300 mg PO QHS tablet 12/16/19 [History Last Taken 07/13/20] finasteride 5 mg tablet 5 mg PO DAILY@1200 12/22/19 [History Last Taken 07/14/20] cyanocobalamin (vitamin B-12) 1,000 mcg IM Q30D 03/10/20 [History Last Taken 06/30/20] amiodarone 200 mg tablet 200 mg PO DAILY #90 tablet 08/09/20 [Rx Last Taken 10/06/20] furosemide 40 mg tablet 40 mg PO DAILY #90 tab 10/17/20 [Rx Last Taken Unknown] metoprolol succinate 50 mg tablet,extended release 24 hr 50 mg PO DAILY #90 tab 10/17/20 [Rx Last Taken Unknown] amlodipine 5 mg tablet 5 mg PO DAILY #90 tab 12/19/20 [Rx Last Taken Unknown] fluticasone fur. 100 mcg-umeclid 62.5 mcg-vilant 25 mcg inhalat.powder 1 inh INHALATION DAILY 01/01/21 [History Last Taken Unknown] rosuvastatin 40 mg tablet 40 mg PO DAILY 01/23/21 [History Last Taken Unknown] losartan 50 mg tablet 50 mg PO BID #180 tablet 02/13/21 [Rx Last Taken Unknown] cephalexin 500 mg PO Q6H 7 Days #28 cap 02/22/21 [Rx Last Taken Unknown] melatonin 10 mg PO QHS 02/22/21 [History Last Taken Unknown] multivitamin 1 tab PO DAILY 02/22/21 [History Last Taken Unknown] Allergy/AdvReac Type Severity Reaction Status Date / Time No Known Allergies Allergy Verified 02/22/21 15:16 Family History Sister Alcoholism Cancer Mother Arthritis Father Arthritis Brother Cancer Surgical History H/O coronary artery bypass surgery (02/14/06) History of cardioversion (12/2016) History of colonoscopy (03/22/20) History of coronary artery stent placement (12/23/06) History of esophagogastroduodenoscopy (10/07/20) History of hammer toe correction History of left heart catheterization (05/10/13) History of lobectomy of lung History of open reduction and internal fixation (ORIF) procedure History of open reduction and internal fixation (ORIF) procedure History of right and left heart catheterization (12/04/16) History of tonsillectomy and adenoidectomy Status post insertion of iliac artery stent (08/04/12) Status post surgical removal of neoplasm of skin Social History Smoking Status: Former smoker how long ago did patient quit smokin years ago second hand exposure: No alcohol intake: current alcohol intake frequency: holidays/special occasions only Alcohol type: wine substance use type: does not use caffeine: Yes Type: coffee Number of servings: 1 what type of physical activity do you participate in: none frequency: does not exercise seatbelt use: always ROS ROS ED Constitutional Constitutional ED: Reports fever(s); Denies chills Eyes Eyes: Denies change in vision ENT ENT ED: Denies sore throat Cardiovascular Cardiovascular: Denies chest pain Respiratory/Chest Respiratory/Chest: Reports dyspnea; Denies cough Gastrointestinal Gastrointestinal: Denies abdominal pain, diarrhea, nausea or vomiting Genitourinary Genitourinary ED: Denies dysuria Musculoskeletal Musculoskeletal: Denies back pain Integumentary Denies rash Neurologic Neurologic: Denies headache(s) or weakness Psychiatric Psychiatric: Denies anxiety or depression Allergic/Immunologic Allergic/Immunologic ED: Denies urticaria EXAM Physical Exam Const Vital Signs: 02/22/21 15:13 02/22/21 16:59 02/22/21 18:00 Temperature 101.5 F H 101.5 F H 101 F H Temperature Source Temporal Temporal Temporal Pulse Rate 78 65 70 Respiratory Rate 18 20 H 18 Blood Pressure 141/68 H 152/69 H 166/70 H Blood Pressure Mean 92 96 102 Pulse Ox 95 97 98 Oxygen Delivery Method Room Air Nasal Cannula Room Air Oxygen Flow Rate (L/min) 4 Positive well nourished and well developed General Appearance ED: well developed HEENT Reports normocephalic and head/scalp atraumatic Eyes PERRL and EOMs intact bilaterally Neck supple Chest Wall inspection of chest normal and palpation of chest normal Resp normal respiratory effort Auscultation: diminished lung sounds Cardio Rhythm: abnormal rhythm irregularly irregular GI normal to inspection, nondistended, normoactive bowel sounds and non-tender Palpation: soft Extremity normal to inspection Neuro oriented x3 and no sensory deficits noted Sensorium / Orientation: alert Motor Exam: strength 5/5 throughout Psych mental status grossly normal Skin no rashes or lesions noted MDM MDM MDM Narrative Medical decision making narrative: Lab work, chest x-ray, urinalysis, Covid test obtained. Patient was given Tylenol for fever. Lab Data Attestation: I reviewed the patient's lab results. Labs: Laboratory Results - last 24 hr 02/22/21 02/22/21 02/22/21 15:35 17:15 17:15 WBC 14.3 H RBC 3.50 L Hgb 10.3 L Hct 32.1 L MCV 91.7 MCH 29.4 MCHC 32.1 RDW Std Deviation 53.6 H RDW Coeff of Iram 16.0 H Plt Count 200 MPV 10.0 Immature Gran % (Auto) 0.700 Neut % (Auto) 84.5 H Lymph % (Auto) 3.9 L Shannon % (Auto) 10.6 H Eos % (Auto) 0.1 Baso % (Auto) 0.2 Absolute Neuts (auto) 12.1 H Absolute Lymphs (auto) 0.55 L Nucleated RBC % 0 Differential Comment SCANNED Diff Path Review May foll Sodium 136 Potassium 3.9 Chloride 103 Carbon Dioxide 26.0 Anion Gap 7 BUN 14 Creatinine 1.23 Estim Creat Clear Calc 53.58 Est GFR (MDRD) Af Amer 74 Est GFR (MDRD) Non-Af 61 BUN/Creatinine Ratio 11.4 Glucose 136 H Lactic Acid 0.7 Calcium 8.4 L Total Bilirubin 1.10 H AST 22 ALT 32 Alkaline Phosphatase 219 H Total Protein 7.2 Albumin 3.1 L Globulin 4.1 Albumin/Globulin Ratio 0.8 L Urine Color Urine Clarity Urine pH Ur Specific [place] Urine Protein Urine Glucose (UA) Urine Ketones Urine Occult Blood Urine Nitrite Urine Bilirubin Urine Urobilinogen Ur Leukocyte Esterase Urine RBC Urine WBC Ur Squamous Epith Cells Urine Bacteria Urine Mucus Urine Yeast 02/22/21 18:00 WBC RBC Hgb Hct MCV MCH MCHC RDW Std Deviation RDW Coeff of Iram Plt Count MPV Immature Gran % (Auto) Neut % (Auto) Lymph % (Auto) Shannon % (Auto) Eos % (Auto) Baso % (Auto) Absolute Neuts (auto) Absolute Lymphs (auto) Nucleated RBC % Differential Comment Diff Path Review Sodium Potassium Chloride Carbon Dioxide Anion Gap BUN Creatinine Estim Creat Clear Calc Est GFR (MDRD) Af Amer Est GFR (MDRD) Non-Af BUN/Creatinine Ratio Glucose Lactic Acid Calcium Total Bilirubin AST ALT Alkaline Phosphatase Total Protein Albumin Globulin Albumin/Globulin Ratio Urine Color Yellow Urine Clarity Cloudy Urine pH 5.0 Ur Specific [place] 1.015 Urine Protein 30 H Urine Glucose (UA) Normal Urine Ketones Negative Urine Occult Blood 50 H Urine Nitrite Positive H Urine Bilirubin Negative Urine Urobilinogen Normal Ur Leukocyte Esterase 500 H Urine RBC 0-5 SEEN Urine WBC 25-50 SEEN Ur Squamous Epith Cells 0 SEEN Urine Bacteria 0 SEEN Urine Mucus 0 SEEN Urine Yeast 2+ Radiography Chest X-Ray - ED: 1 View, Read by ED Physician and Chronic Changes Diagnostic Testing: Radiology Impression Chest X-Ray 02/22/21 17:25 IMPRESSION: Findings most suggest CHF/pulmonary edema. Superimposed pneumonia should be excluded clinically. Electronically Signed: Yimi Otero MD at 18:09 EDT Tel , Service support , EKG Initial EKG: Attestation: I personally reviewed and interpreted this EKG as follows: Interpretation: Atrial Fibrillation (A. fib at 83. No acute ST change.) Treatment and Re-Evaluation Comments:: Patient's temperature did not significantly drop with Tylenol. He is also given ibuprofen. Blood work is reviewed. White count is elevated at 14.3. Left shift is noted. Renal function is at baseline and lactic acid is normal. Covid swab is negative. Urinalysis shows 25-50 white blood cells but 0 bacteria noted at this time. 2+ yeast is noted. Patient has been on antibiotics and in spite of this has had increasing fevers the last 2 days. I am concerned about possible bacteremia from his UTI. I will give him a dose of Rocephin. With limited availability of beds I did discuss with the patient whether he felt comfortable going home with close return instructions. He does feel comfortable with this. His vital signs are stable. I also spoke with Dr. Chow, on-call for the patient's PCP. They know the plan and will follow up with the patient tomorrow as well. Patient was given specific return instructions and will return for any concerns. Discharge Plan Triage Chief Complaint: Shortness of Breath ED Provider: Natalie Leon Dx/Rx/DC Orders Clinical Impression: Fever Instructions: ED Fever Control (Adult), ED Bladder Infection, Male (Adult) Prescriptions: New cephalexin 500 mg capsule 500 mg PO Q6H 7 Days Qty: 28 RF: 0 No Action cholecalciferol (vitamin D3) 5,000 unit capsule 5,000 unit PO DAILY RF: 0 finasteride 5 mg tablet 5 mg PO DAILY@1200 RF: 0 Trelegy Ellipta 100-62.5-25 mcg blister with device 1 inh inhalation DAILY RF: 0 rosuvastatin 40 mg tablet 40 mg PO DAILY RF: 0 folic acid 1 MG tablet 1 mg PO DAILY@1200 RF: 0 docusate sodium 100 mg capsule 100 mg PO BID RF: 0 pramipexole 0.5 MG tablet 0.5 mg PO TID RF: 0 gabapentin 600 mg tablet 300 mg PO QHS RF: 0 ferrous sulfate 325 MG tablet 65 mg PO DAILY RF: 0 tamsulosin 0.4 MG capsule 0.4 mg PO QHS RF: 0 omeprazole 20 MG capsule 20 mg PO BID RF: 0 vitamins A,C,U-lnwy-jpmobw 1 EACH tablet 1 each PO BID RF: 0 cyanocobalamin (vitamin B-12) 1,000 MCG/ML solution 1,000 mcg IM Q30D RF: 0 multivitamin Tablet 1 tab PO DAILY RF: 0 melatonin 10 mg Tablet 10 mg PO QHS RF: 0 amiodarone 200 mg tablet 200 mg PO DAILY Qty: 90 RF: 3 metoprolol succinate 50 mg tablet extended release 24 hr 50 mg PO DAILY Qty: 90 RF: 3 furosemide 40 mg tablet 40 mg PO DAILY Qty: 90 RF: 3 amlodipine 5 mg tablet 5 mg PO DAILY Qty: 90 RF: 3 losartan 50 mg tablet 50 mg PO BID Qty: 180 RF: 3 Primary Care Provider: Fany Hobson Referrals: Fany Hobson DO [Primary Care Provider] - As soon as possible Disposition Disposition: Home, Self Care
[2021-02-22] MEDS: Acetaminophen 500 MG Tablet 1000 MG PO (16:58)
[2021-02-22 16:59] VITALS: BP 152/69; PULSE 65; PULSE 70; RESP 20; RESP 21; TEMP 38.6; O2SAT 97; O2SAT 98
--- NOTE | 2021-02-22 17:25 | RAD_ITS ---
STUDY: X-RAY CHEST REASON FOR EXAM: Male, 75 years old. Sob TECHNIQUE: Single frontal view of the chest. COMPARISON: 12/02/2019. FINDINGS: Increased pulmonary vascular and interstitial markings. Median sternotomy wires. Port-A-Cath tip is in the inferior SVC. There is moderate cardiac enlargement. Normal mediastinum and yovanny. Normal visualized pulmonary arteries. Normal visualized aortic arch and descending thoracic aorta. Normal visualized thoracic spine. Normal visualized ribs, clavicles, and shoulders. There is no demonstrated abnormality of the visualized soft tissue structures of the upper abdomen. RAD/Chest 1 View (Portable) IMPRESSION: Findings most suggest CHF/pulmonary edema. Superimposed pneumonia should be excluded clinically. Electronically Signed: Yimi Otero MD at 18:09 EDT Tel , Service support ,
[2021-02-22 18:00] VITALS: BP 166/70; PULSE 70; RESP 18; TEMP 38.3; O2SAT 98
[2021-02-22 18:04] LABS: Absolute Lymphocyte Count 0.55 X10^3/uL (0.83-4.51); Absolute Neutrophil Count 12.1 X10^3/uL (2.0-7.7); Basophil# 0.03 X10^3/uL; Basophil% 0.2 % (0-1); Eosinophil# 0.02 X10^3/uL; Eosinophils% 0.1 % (0-5); Hematocrit 32.1 % (40-54); Hemoglobin 10.3 g/dL (13.0-16.5); Lymphocyte # 0.55 X10^3/ul (0.83-4.51); Lymphocyte % 3.9 % (19-41); Mean Corp Hgb Conc 32.1 g/dL (32-36); Mean Corpuscular Hgb 29.4 pg (27.0-32.0); Mean Corpuscular Volume 91.7 fL (80-94); Monocyte# 1.51 X10^3/uL; Monocyte% 10.6 % (0-10); NRBC Flagged by Analyzer 0 % (0-5); Neutrophil # 12.05 X10^3/uL (2.7-7.7); Neutrophil % 84.5 % (47-70); POSITIVE DIFFERENTIAL YES; Platelet Count 200 K/mm3 (150-450); RBC Distribution Width SD 53.6 fl (35.1-43.9); White Blood Count 14.3 K/mm3 (4.4-11.0)
[2021-02-22 18:12] LABS: Differential Indicated SCAN CRITERIA MET
[2021-02-22 18:15] LABS: Bacteria 0 SEEN /hpf (None Seen); Mucous, Urine 0 SEEN /hpf (<or=2+); Squamous Epithelial Cells - UA 0 SEEN /hpf (0-5)
[2021-02-22 18:30] LABS: Lactic Acid 0.7 mmol/L (0.4-1.9)
[2021-02-22 18:37] LABS: Differential Comment SCANNED
[2021-02-22 18:42] LABS: Color, Urine Yellow (Yellow); Glucose, Dipstick Normal (Normal); Ketone-Dipstick Negative (Negative); Leukocyte Esterase-Dipstick 500 /ul (Negative); Nitrite-Dipstick Positive (Negative); Occult Blood-Urine 50 /ul (Negative); Protein-Dipstick 30 mg/dl (Negative); Specific Gravity, Urine 1.015 (1.002-1.030); Urine Bilirubin Dipstick Negative (Negative); Urine Clarity Cloudy (Clear); Urine Urobilinogen Normal (Normal)
[2021-02-22 19:02] LABS: Red Blood Cells-Urine 0-5 SEEN /hpf (0-5)
[2021-02-22 19:05] LABS: Yeast-Urine 2+ /hpf (None Seen)
[2021-02-22 19:06] LABS: White Blood Cells 25-50 SEEN /hpf (0-5)
[2021-02-22] MEDS: Ibuprofen 600 MG Tablet PO (19:35)
[2021-02-22] MEDS: Ceftriaxone 1 GM/50 ML BAG IV (20:20)
[2021-02-22 21:39] VITALS: BP 146/78; PULSE 81; RESP 20; O2SAT 97
[2021-02-23 12:14] LABS: Pathologist Review Reviewed
== END 2021-02-22 21:41 | disposition home or self-care (01) ==
PROVIDERS: Emergency Provider Emergency Medicine; PCP Internal Medicine
DX: R50.9 Fever, unspecified (principal); R06.02 Shortness of breath; J44.9 Chronic obstructive pulmonary disease, unspecified; I48.0 Paroxysmal atrial fibrillation; I48.11 Longstanding persistent atrial fibrillation; Z20.822 Contact with and (suspected) exposure to COVID-19; I25.10 Atherosclerotic heart disease of native coronary artery without angina pectoris; I27.21 Secondary pulmonary arterial hypertension; G20 Parkinson's disease; F02.80 Dementia in other diseases classified elsewhere, unspecified severity, without behavioral disturbance, psychotic disturbance, mood disturbance, and anxiety; K21.9 Gastro-esophageal reflux disease without esophagitis; G47.33 Obstructive sleep apnea (adult) (pediatric); Z99.81 Dependence on supplemental oxygen; I25.2 Old myocardial infarction; Z87.440 Personal history of urinary (tract) infections; Z87.891 Personal history of nicotine dependence; Z95.1 Presence of aortocoronary bypass graft
CPT/HCPCS: 51702; 71045; 80053; 81001; 83605; 85025; 87040; 87077; 87086; 87088; 87186; 87426; 93005; 94760; 96365; 99285; J7040; A4216

== ENCOUNTER → 2021-03-27 12:59 | Outpatient (CLI) | payer MEDICARE, OTHER, SELFPAY ==
[2021-01-01 13:03] VITALS: BMI 42.6
--- NOTE | 2021-03-27 13:01 | CT_ITS ---
STUDY: CT RIGHT LOWER EXTREMITY WITHOUT CONTRAST REASON FOR EXAM: Right knee pain, surgical planning. TECHNIQUE: Transaxial CT imaging of the lower extremity was performed. Coronal and sagittal images were reformatted. Individualized dose optimization techniques were used for this CT. COMPARISON: Radiographs 06/07/2019. FINDINGS: Knee: There are marginal osteophytes and severe joint space narrowing of the medial femorotibial compartment (coronal reconstruction 32). There are marginal osteophytes with joint space narrowing of the lateral femorotibial compartment (coronal reconstruction 34). There are marginal osteophytes and joint space narrowing of the lateral aspect of the patellofemoral articulation (axial image 414). There is chronic healed fracture deformity of the proximal tibial diaphysis (coronal reconstructions 31-40) and chronic healed fracture deformity of the proximal fibular diaphysis (coronal reconstructions 44-46). There is arthrosis of the proximal tibiofibular articulation (sagittal reconstruction 20). There is a small joint effusion. The quadriceps tendon is grossly normal. The patellar tendon is grossly normal. Normal Hoffa''s fat pad. There are posterior intra-articular bodies (coronal reconstructions 40-45). There is a popliteal cyst (sagittal reconstruction 49). There is vascular calcification. Hip: There is joint space narrowing of the right hip (coronal reconstructions 93). Ankle: There is an orthopedic plate transfixing a healed fracture of the distal fibula (coronal reconstructions 38-42). There is mild joint space narrowing of the anterior aspect of the tibiotalar articulation (sagittal reconstruction 43). There is mild joint space narrowing of the posterior subtalar articulation (sagittal reconstruction 48). Normal talonavicular and calcaneocuboid articulations. CT/Extremity Lower without Contra IMPRESSION: Right knee arthrosis. Healed fractures of the tibia and fibula. Electronically Signed: Alexis Scott MD at 15:00 EDT Tel , Service support ,
== END ==
PROVIDERS: PCP Internal Medicine; Referring Provider Specialist; Visit Provider Specialist
DX: M21.161 Varus deformity, not elsewhere classified, right knee (principal)
CPT/HCPCS: 73700

== ENCOUNTER → 2021-03-28 10:58 | Outpatient (CLI) | payer MEDICARE, OTHER, SELFPAY ==
--- NOTE | 2021-03-28 11:01 | CDU_ITS ---
Reason For Study: ATERIOSCLEROSIS Rt. Velocities/BP Lt. Velocities/BP Prox CCA 58.2/12.5 cm/sec. Prox CCA 98.5/26.1 cm/sec. Mid CCA 93.4/19.0 cm/sec. Mid CCA 83.8/16.3 cm/sec. Dist CCA 111.6/20.3 cm/sec. Dist CCA 72.9/10.8 cm/sec. Prox ICA 101.6/17.5 cm/sec. Prox ICA 96.3/28.3 cm/sec. Mid ICA 108.9/12.1 cm/sec. Mid ICA 94.1/19.5 cm/sec. Dist ICA 107.0/30.3 cm/sec. Dist ICA 120.4/21.7 cm/sec. Rt. ICA/CCA = 108.9/93.4=1.2. Lt. ICA/CCA = 120.4/83.8=1.4. Prox ECA 163.7/12.3 cm/sec. Prox ECA 320.1/22.0 cm/sec. Rt. Vert. 59.6/9.0 cm/sec. Lt. Vert. 68.7/19.5 cm/sec. Right Extracranial There is heterogeneous, irregular atherosclerotic plaque noted in the right common carotid artery. There is heterogeneous, irregular atherosclerotic plaque noted in the right internal carotid artery. There is heterogeneous, irregular atherosclerotic plaque noted in the right external carotid artery. Antegrade flow is noted in the right vertebral artery. Left Extracranial There is heterogeneous, irregular atherosclerotic plaque noted in the left common carotid artery. There is heterogeneous, irregular atherosclerotic plaque noted in the left internal carotid artery. The atherosclerotic plaque causes acoustic shadowing. There is heterogeneous, irregular atherosclerotic plaque noted in the left external carotid artery. Antegrade flow is noted in the left vertebral artery. Procedure Carotid Duplex 16077. This is a Carotid Duplex examination using B-mode, color flow and specral Doppler. The study was technically difficult. PT is on 02, deep respirations interfered with imaging. Exam performed in department. VL/Carotid Duplex Ultrasound Interpretation Summary Irregular calcific plaque right carotid bulb and proximal internal carotid corrine ry with less than 50% stenosis. Less than 50% stenosis right external carotid artery Irregular calcific plaque with shadowing at the proximal left internal carotid artery with less than 50% stenosis. Extensive plaque within the proximal left internal carotid causes significant s hadowing which may affect the estimated degree of stenosis provided Greater than 50% stenosis left external carotid artery Patent and antegrade vertebral arteries bilaterally This study is very similar to the previous study of August 13, 2019 Ordering Physician: Fany Hobson Referring Physician: Fany Hobson Performed By: Vanda Christian, MENDEZ, RVT
== END ==
PROVIDERS: PCP Internal Medicine; Referring Provider Internal Medicine; Visit Provider Internal Medicine
DX: I65.23 Occlusion and stenosis of bilateral carotid arteries (principal)
CPT/HCPCS: 93880

== ENCOUNTER → 2021-04-05 12:58 | Outpatient (CLI) | payer MEDICARE, OTHER, SELFPAY ==
--- NOTE | 2021-04-06 07:57 | PFT ---
INTRODUCTION: The patient is a 75-year-old male that presents for pulmonary function studies secondary to a diagnosis of COPD. Respiratory therapy reported good patient effort. Bronchodilators were used during testing. INTERPRETATION: Forced expiration spirometry demonstrates the presence of a moderately severe large airways obstructive ventilatory defect. There was no significant response to aerosolized bronchodilators. Spirograms are of good quality but do not plateau indicating slow emptying of the lungs. Body plethysmography was performed and revealed an elevated RV to 137% of predicted, indicative of underlying air trapping. Diffusing capacity by single breath CO is reduced at 33% of predicted. IMPRESSION: Irreversible moderately severe large airways obstructive ventilatory defect with associated air trapping and symmetric reduction in diffusing capacity.
== END ==
PROVIDERS: PCP Internal Medicine; Referring Provider Internal Medicine Critical Care Medicine; Visit Provider Internal Medicine Critical Care Medicine
DX: J44.9 Chronic obstructive pulmonary disease, unspecified (principal)
CPT/HCPCS: 94060; 94726; 94729

== ENCOUNTER 2021-07-06 12:51 | Outpatient (CLI) | payer MEDICARE, OTHER, SELFPAY ==
--- NOTE | 2021-07-06 12:53 | CT_ITS ---
STUDY: CT CHEST WITHOUT CONTRAST REASON FOR EXAM: Male, 75 years old. F/U LUNG CA S/P KATIE RESECTION ANNUAL RADIATION DOSAGE (If Supplied By Facility): CTDIvol = ( 20.14 ) mGy, DLP = ( 800.24 ) mGycm TECHNIQUE: Transaxial imaging was performed without the administration of intravenous contrast material. Multiplanar coronal and sagittal images were reformatted. Individualized dose optimization techniques were used for this CT. COMPARISON: Comparison is made with prior study dated 04/17/2020. FINDINGS: A right-sided portacatheter is seen with the tip in the superior vena cava. Stable linear fibrocalcific scarring at the left lung apex in keeping with prior resection. No new pulmonary abnormality is seen. No mass lesion is present. There is no demonstrated pleural abnormality. Sternal cerclage wires and vascular clips are present from a prior sternotomy and coronary artery bypass graft procedure (CABG). Coronary artery calcification. There are multiple small lymph nodes within the mediastinum, which are normal in size and morphology most compatible with reactive lymph hyperplasia. Normal hilar regions. Normal unenhanced pulmonary arteries. There is atherosclerotic calcification of the aortic arch with tortuosity and elongation of the aortic arch and descending thoracic aorta. There are multi-level degenerative changes of the thoracic spine. Stable 4 cm x 5.6 cm heterogeneous soft tissue density in the right adrenal gland. CT/Chest without Contrast IMPRESSION: Stable left apical fibrocalcific scarring. Stable heterogeneous soft tissue density in the right adrenal gland. Electronically Signed: Navdeep Pacheco MD at 13:39 EST , Service support ,
== END 2021-07-06 23:59 | disposition short-term general hospital (02) ==
LOC: CT 12:52
PROVIDERS: PCP Internal Medicine; Referring Provider Internal Medicine Hematology & Oncology; Visit Provider Internal Medicine Hematology & Oncology
DX: C34.12 Malignant neoplasm of upper lobe, left bronchus or lung (principal)
CPT/HCPCS: 71250

== ENCOUNTER → 2021-10-16 | Outpatient (CLI) | payer MEDICARE, OTHER, SELFPAY ==
[2021-10-16 12:32] LABS: Troponin-I HS 22 pg/mL (3.0-78.0)
== END | disposition home or self-care (01) ==
LOC: LABSPEC 12:13
PROVIDERS: PCP Internal Medicine; Referring Provider Internal Medicine; Visit Provider Internal Medicine
DX: R94.31 Abnormal electrocardiogram [ECG] [EKG] (principal)
CPT/HCPCS: 84484

== ENCOUNTER → 2021-10-19 | Outpatient (CLI) | payer MEDICARE, OTHER, SELFPAY ==
--- NOTE | 2021-10-19 13:51 | ECHOD_ITS ---
Reason For Study: Arrhythmia Procedure This was a 2D Doppler, Color Flow transthoracic echocardiogram. The study was technically difficult. Unable to utilize Definity due to increased pulmonary pressures. Exam performed in department. Left Ventricle Normal LV size. Mild concentric left ventricular hypertrophy. D shaped septum in systole and diastole. The estimated ejection fraction is 50 %. No regional wall motion abnormalities noted. Right Ventricle Moderately dilated right ventricle. Mild to moderate global right ventricular systolic dysfunction. Atria The left atrium is moderately enlarged. The right atrium is mildly enlarged. Mitral Valve Normal mitral valve. Mild-Moderate (1-2+) eccentric mitral valve insufficiency. Tricuspid Valve Normal tricuspid valve. Moderately severe (3+) tricuspid valve insufficiency. Pulmonary artery systolic pressure is 90 mmHg. Severe pulmonary hypertension. Aortic Valve Trisinus/trileaflet aortic valve. Pulmonic Valve Normal pulmonic valve. Mild (1+) pulmonic valve insufficiency. Great Vessels Normal aortic root. The pulmonary artery is normal size. The inferior vena cava is dilated. Pericardium/Pleural No pericardial effusion. MMode/2D Measurements & Calculations LVIDd: 5.3 cm IVSd: 1.2 cm Ao root diam: 3.1 cm LVIDs: 4.1 cm LVPWd: 1.3 cm RVDd: 5.3 cm FS: 21.9 % LAV(MOD-bp): 96.7 ml LA A4 area: 27.9 cm2 LA dimension(2D): 5.6 cm LAV(MOD-bp) Indexed: 39.3 ml/m2 LAV(MOD-sp2): 99.3 ml LAV(MOD-sp4): 92.1 ml RA A4 area: 23.2 cm2 Doppler Measurements & Calculations MV E max sanjuana: 119.3 cm/sec Ao V2 max: 147.2 cm/sec LV V1 max: 89.3 cm/sec Ao max P.7 mmHg LV V1 max P.2 mmHg Ao V2 mean: 103.7 cm/sec Ao mean P.7 mmHg Ao V2 VTI: 26.9 cm PA V2 max: 92.1 cm/sec PI end-d sanjuana: 151.8 cm/sec TR max sanjuana: 459.2 cm/sec TR max P.3 mmHg ECHO/Echo Complete Interpretation Summary Normal LV size. Mild concentric left ventricular hypertrophy. D shaped septum in systole and diastole. The estimated ejection fraction is 50 %. Moderately dilated right ventricle. The left atrium is moderately enlarged. Moderately severe (3+) tricuspid valve insufficiency. Pulmonary artery systolic pressure is 90 mmHg. Severe pulmonary hypertension. The inferior vena cava is dilated Ordering Physician: Xu Batista Referring Physician: Fany Hobson Performed By: Sumi Morris, MENDEZ, RVT
== END | disposition home or self-care (01) ==
LOC: CVS 13:50
PROVIDERS: PCP Internal Medicine; Referring Provider Internal Medicine Cardiovascular Disease; Visit Provider Internal Medicine Cardiovascular Disease
DX: G47.33 Obstructive sleep apnea (adult) (pediatric) (principal); I48.11 Longstanding persistent atrial fibrillation; I49.49 Other premature depolarization; I25.10 Atherosclerotic heart disease of native coronary artery without angina pectoris; I10 Essential (primary) hypertension; E78.5 Hyperlipidemia, unspecified; I51.7 Cardiomegaly; R06.00 Dyspnea, unspecified; Z95.5 Presence of coronary angioplasty implant and graft; Z95.1 Presence of aortocoronary bypass graft
CPT/HCPCS: 93306

== ENCOUNTER 2021-10-20 14:11 | Emergency (ER) | payer MEDICARE, OTHER, SELFPAY ==
[2021-10-20] VITALS (7 sets, daily range): BP systolic 153–189; BP diastolic 68–111; PULSE 79–105; RESP 19–24; TEMP 36.3–37.4; O2SAT 94–95; BMI 41.5
--- NOTE | 2021-10-20 14:39 | EKG12_ITS ---
Test Reason : WEAKNESS Blood Pressure : / mmHG Vent. Rate : 087 BPM Atrial Rate : 084 BPM P-R Int : 000 ms QRS Dur : 112 ms QT Int : 376 ms P-R-T Axes : 000 -78 029 degrees QTc Int : 452 ms Atrial fibrillation Left axis deviation Nonspecific ST abnormality Abnormal ECG Confirmed by SUNIL CLEARY, TATI ([id number]), script editor DAVID FLOWER ([id number]) on 10/22/2021 1:29:14 PM Referred By: DIANA Confirmed By:TATI BARBER MD
--- NOTE | 2021-10-20 14:40 | EDS_ITS ---
HPI <Dr. Michoacano Perla DO - Last Filed: 10/20/21 15:05> History of Present Illness Chief Complaint: Weakness Informant: patient and spouse/S.O. Narrative Narrative: 76-year-old male with multiple medical problems arriving to the emergency department for evaluation of fever. He tells me that in the past 2 weeks he has been diagnosed with a UTI. He took a full course of 1 antibiotic and was recently prescribed nitrofurantoin this past week. He notes that over the past 2 days he is got progressively more weak and today had a 101 fever associated with chills. He notes an increase in his shortness of breath sensation but not a change in his cough. He chronically wears 3 L nasal cannula. He states he had an echocardiogram yesterday. This was read as severe pulmonary hypertension with preserved ejection fraction. He has been eating and drinking appropriately. [facility] <Dr. Michoacano Perla DO - Last Filed: 10/20/21 15:05> [facility] Medical History Acute kidney injury Adenocarcinoma of lung, stage 1 Alcohol dependence Ambulates with cane Amputated great toe of left foot Amputation of one or more toes Anemia Arthritis Atherosclerosis of coronary artery of [place] heart without angina pectoris Benign essential hypertension BiPAP (biphasic positive airway pressure) dependence Cancer Cancer of upper lobe of left lung Cardiology follow-up encounter Chronic gastritis Chronic ulcer of left foot with fat layer exposed COPD (chronic obstructive pulmonary disease) Dementia Diverticular disease Essential tremor Former smoker Gastric AVM Gastric reflux GERD (gastroesophageal reflux disease) GI bleed Hammer toe of left foot High cholesterol History of atrial fibrillation History of echocardiogram History of edema History of pain when walking Hyperlipidemia Hypertension Injury of head and neck Iron deficiency anemia due to chronic blood loss Longstanding persistent atrial fibrillation Migraine headache Multiple premature ventricular complexes Normal stress echocardiogram NSTEMI (non-ST elevated myocardial infarction) (12/02/19) On home oxygen therapy HEBER (obstructive sleep apnea) Parkinson's disease Parkinsons Pneumonia Polyp of colon, adenomatous 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 Pulmonary HTN Respiratory failure with hypoxia Right ventricular dilation, secondary Right ventricular systolic dysfunction Secondary pulmonary arterial hypertension Sepsis Sepsis Severe sepsis Shortness of breath on exertion Sleep apnea SURGICAL REMOVAL LEFT GREAT TOE Toe osteomyelitis Uses wheelchair Walker as ambulation aid Wears glasses Home Medications folic acid 1 mg PO DAILY@1200 05/06/13 [History Last Taken 07/14/20] pramipexole 0.5 mg PO TID 12/04/16 [History Last Taken 10/06/20] docusate sodium 100 mg capsule 100 mg PO BID cap 10/20/17 [History Last Taken 07/14/20] ferrous sulfate 65 mg PO DAILY 02/01/19 [History Last Taken 07/14/20] cholecalciferol (vitamin D3) 125 mcg (5,000 unit) capsule 5,000 unit PO DAILY 03/30/19 [History Last Taken 07/14/20] tamsulosin 0.4 mg PO QHS 07/12/19 [History Last Taken 07/13/20] omeprazole 20 mg PO BID 09/03/19 [History Last Taken 10/06/20] vitamins A,C,V-mmsw-arivqa [PreserVision AREDS] 1 each PO BID 09/03/19 [History Last Taken 07/14/20] gabapentin 600 mg tablet 600 mg PO QHS tablet 12/16/19 [History Last Taken 07/13/20] finasteride 5 mg tablet 5 mg PO DAILY@1200 12/22/19 [History Last Taken 07/14/20] cyanocobalamin (vitamin B-12) 1,000 mcg IM Q30D 03/10/20 [History Last Taken 06/30/20] amlodipine 5 mg tablet 5 mg PO DAILY #90 tab 12/19/20 [Rx Last Taken Unknown] fluticasone fur. 100 mcg-umeclid 62.5 mcg-vilant 25 mcg inhalat.powder 1 inh INHALATION DAILY 01/01/21 [History Last Taken Unknown] rosuvastatin 40 mg tablet 20 mg PO DAILY 01/23/21 [History Last Taken Unknown] losartan 50 mg tablet 50 mg PO BID #180 tablet 02/13/21 [Rx Last Taken Unknown] carboxymethylcellulose sodium [Refresh Tears] 1 drp EACH EYE BID 03/21/21 [History Last Taken Unknown] cranberry 400 mg PO DAILY 03/21/21 [History Last Taken Unknown] peg-potas chl-prop gly-sod chl [Rhinase] 1 ea INTRANASAL PRN PRN 03/21/21 [History Last Taken Unknown] psyllium husk [Metamucil] 1 tbsp PO QODAY 03/21/21 [History Last Taken Unknown] trazodone 50 mg PO QHS 03/21/21 [History Last Taken Unknown] amiodarone 200 mg tablet 200 mg PO DAILY #90 tablet 08/31/21 [Rx Last Taken Unknown] furosemide 40 mg tablet 40 mg PO DAILY #90 tab 09/20/21 [Rx Last Taken Unknown] metoprolol succinate 50 mg tablet,extended release 24 hr 50 mg PO DAILY #90 tab 10/15/21 [Rx Last Taken Unknown] Allergy/AdvReac Type Severity Reaction Status Date / Time No Known Allergies Allergy Verified 09/27/21 13:26 Family History Sister Alcoholism Cancer Mother Arthritis Father Arthritis Brother Cancer Surgical History H/O coronary artery bypass surgery (02/14/06) History of cardioversion (12/2016) History of colonoscopy (03/22/20) History of coronary artery stent placement (12/23/06) History of esophagogastroduodenoscopy (03/22/20) History of hammer toe correction History of left heart catheterization (05/10/13) History of lobectomy of lung History of open reduction and internal fixation (ORIF) procedure History of open reduction and internal fixation (ORIF) procedure History of right and left heart catheterization (12/04/16) History of tonsillectomy and adenoidectomy Status post insertion of iliac artery stent (08/04/12) Status post surgical removal of neoplasm of skin Social History Smoking Status: Former smoker how long ago did patient quit smokin years ago second hand exposure: No alcohol intake: current alcohol intake frequency: holidays/special occasions only Alcohol type: wine substance use type: does not use caffeine: Yes Type: coffee Number of servings: 1 what type of physical activity do you participate in: none frequency: does not exercise seatbelt use: always ROS <Dr. Michoacano Perla DO - Last Filed: 10/20/21 15:05> ROS ED ROS Narrative Fatigue Constitutional Constitutional ED: Reports chills and fever(s); Denies weight loss Eyes Eyes: Denies change in vision or diplopia ENT ENT ED: Denies ear pain, rhinorrhea or sore throat Cardiovascular Cardiovascular: Denies chest pain, orthopnea, palpitations or racing heartbeat Respiratory/Chest Respiratory/Chest: Reports cough, dyspnea and dyspnea on exertion; Denies orthopnea Gastrointestinal Gastrointestinal: Denies abdominal pain, diarrhea, nausea or vomiting Genitourinary Genitourinary ED: Denies dysuria, hematuria or urinary frequency Musculoskeletal Musculoskeletal: Denies arthralgias or myalgias Integumentary Denies abscess or rash Neurologic Neurologic: Denies headache(s) or weakness Psychiatric Psychiatric: Denies anxiety, depression, suicidal ideation or suicidal thoughts Endocrine Endocrinology: Denies polydipsia, polyphagia or polyuria Allergic/Immunologic Allergic/Immunologic ED: Denies mouth swelling, tongue swelling or urticaria EXAM <Dr. Michoacano Perla, DO - Last Filed: 10/20/21 15:05> Physical Exam Const Vital Signs: 10/20/21 14:12 10/20/21 14:14 10/20/21 14:31 Temperature 97.4 F L 97.4 F L Temperature Source Temporal Temporal Pulse Rate 105 H 105 H Respiratory Rate 24 H 24 H Respiratory Effort Short of Breath Respiratory Pattern Tachypnea Blood Pressure 189/111 H 189/111 H Blood Pressure Mean 137 137 Pulse Ox 94 94 Oxygen Delivery Method Nasal Cannula Nasal Cannula Oxygen Flow Rate (L/min) 10/20/21 15:20 10/20/21 15:36 10/20/21 16:37 Temperature 98 F 99.3 F H Temperature Source Oral Oral Pulse Rate 94 79 Respiratory Rate 21 H 21 H Respiratory Effort Respiratory Pattern Blood Pressure 160/78 H 153/77 H Blood Pressure Mean 105 102 Pulse Ox 95 95 Oxygen Delivery Method Nasal Cannula Nasal Cannula Oxygen Flow Rate (L/min) 2 2 10/20/21 17:40 10/20/21 19:11 Temperature 98.8 F Temperature Source Oral Pulse Rate 85 82 Respiratory Rate 22 H 19 H Respiratory Effort Respiratory Pattern Blood Pressure 171/68 H Blood Pressure Mean 102 Pulse Ox 94 94 Oxygen Delivery Method Nasal Cannula Nasal Cannula Oxygen Flow Rate (L/min) 2 2 Positive well nourished, well developed and obese General Appearance ED: well developed Nutritional Appearance: obese HEENT Reports normocephalic, head/scalp atraumatic, TM's clear and moist mucous membranes Negative for trauma Tympanic Membrane ED: Yes TM's clear Eyes PERRL and EOMs intact bilaterally Neck no lymphadenopathy, supple and no JVD Resp normal respiratory effort and clear to auscultation bilaterally Cardio regular rate, regular rhythm and no murmurs GI normal to inspection, nondistended, normoactive bowel sounds and non-tender Palpation: soft Back/Spine no CVA tenderness and normal ROM Extremity normal to inspection General Extremety ED: Negative for edema General Extremity: Negative for edema Neuro oriented x3 and CN's II-XII intact bilaterally Sensorium / Orientation: alert Motor Exam: strength 5/5 throughout Psych mental status grossly normal Mood & Affect: Negative for depressed or tearful Skin no rashes or lesions noted and no wounds <Dr. Andrzej Quigley, DO - Last Filed: 10/20/21 19:18> Physical Exam Const Vital Signs: 10/20/21 14:12 10/20/21 14:14 10/20/21 14:31 Temperature 97.4 F L 97.4 F L Temperature Source Temporal Temporal Pulse Rate 105 H 105 H Respiratory Rate 24 H 24 H Respiratory Effort Short of Breath Respiratory Pattern Tachypnea Blood Pressure 189/111 H 189/111 H Blood Pressure Mean 137 137 Pulse Ox 94 94 Oxygen Delivery Method Nasal Cannula Nasal Cannula Oxygen Flow Rate (L/min) 10/20/21 15:20 10/20/21 15:36 10/20/21 16:37 Temperature 98 F 99.3 F H Temperature Source Oral Oral Pulse Rate 94 79 Respiratory Rate 21 H 21 H Respiratory Effort Respiratory Pattern Blood Pressure 160/78 H 153/77 H Blood Pressure Mean 105 102 Pulse Ox 95 95 Oxygen Delivery Method Nasal Cannula Nasal Cannula Oxygen Flow Rate (L/min) 2 2 10/20/21 17:40 10/20/21 19:11 Temperature 98.8 F Temperature Source Oral Pulse Rate 85 82 Respiratory Rate 22 H 19 H Respiratory Effort Respiratory Pattern Blood Pressure 171/68 H Blood Pressure Mean 102 Pulse Ox 94 94 Oxygen Delivery Method Nasal Cannula Nasal Cannula Oxygen Flow Rate (L/min) 2 2 MDM <Dr. Michoacano Perla, DO - Last Filed: 10/20/21 15:05> MDM Lab Data Labs: Laboratory Results - last 24 hr 10/20/21 10/20/21 10/20/21 14:55 14:55 14:55 WBC 9.9 RBC 3.81 L Hgb 11.9 L Hct 36.7 L MCV 96.3 H MCH 31.2 MCHC 32.4 RDW Std Deviation 54.1 H RDW Coeff of Iram 15.2 H Plt Count 103 L MPV 11.2 Immature Gran % (Auto) PROPERTY SITE MANAGER Neut % (Auto) PROPERTY SITE MANAGER Lymph % (Auto) PROPERTY SITE MANAGER [place] % (Auto) PROPERTY SITE MANAGER Eos % (Auto) PROPERTY SITE MANAGER Baso % (Auto) PROPERTY SITE MANAGER Absolute Neuts (auto) 8.3 H Absolute Lymphs (auto) 0.40 L Total Counted 100 Neutrophils % (Manual) 76 H Band Neutrophils % 8 H Lymphocytes % (Manual) 4 L Monocytes % (Manual) 11 H Myelocytes % 1 H Nucleated RBC % PROPERTY SITE MANAGER Differential Comment SCANNED Diff Path Review May foll Platelet Estimate SLT DEC RBC Morphology NORM C+C PT 16.2 H INR 1.3 APTT 35.9 Sodium 141 Potassium 3.3 L Chloride 106 Carbon Dioxide 28.0 Anion Gap 7 BUN 21 H Creatinine 1.30 Estim Creat Clear Calc 49.91 Est GFR (MDRD) Af Amer 69 Est GFR (MDRD) Non-Af 57 L BUN/Creatinine Ratio 16.2 Glucose 151 H Lactic Acid Calcium 8.8 Total Bilirubin 1.20 H AST 20 ALT 19 Alkaline Phosphatase 171 H Troponin I High Sens 22 B-Natriuretic Peptide Total Protein 6.8 Albumin 3.4 Globulin 3.4 Albumin/Globulin Ratio 1.0 Urine Color Urine Clarity Urine pH Ur Specific [place] Urine Protein Urine Glucose (UA) Urine Ketones Urine Occult Blood Urine Nitrite Urine Bilirubin Urine Urobilinogen Ur Leukocyte Esterase Urine RBC Urine WBC Ur Squamous Epith Cells Urine Bacteria Urine Mucus 10/20/21 10/20/21 10/20/21 14:55 14:55 15:35 WBC RBC Hgb Hct MCV MCH MCHC RDW Std Deviation RDW Coeff of Iram Plt Count MPV Immature Gran % (Auto) Neut % (Auto) Lymph % (Auto) [place] % (Auto) Eos % (Auto) Baso % (Auto) Absolute Neuts (auto) Absolute Lymphs (auto) Total Counted Neutrophils % (Manual) Band Neutrophils % Lymphocytes % (Manual) Monocytes % (Manual) Myelocytes % Nucleated RBC % Differential Comment Diff Path Review Platelet Estimate RBC Morphology PT INR APTT Sodium Potassium Chloride Carbon Dioxide Anion Gap BUN Creatinine Estim Creat Clear Calc Est GFR (MDRD) Af Amer Est GFR (MDRD) Non-Af BUN/Creatinine Ratio Glucose Lactic Acid 1.4 Calcium Total Bilirubin AST ALT Alkaline Phosphatase Troponin I High Sens B-Natriuretic Peptide 906.0 H Total Protein Albumin Globulin Albumin/Globulin Ratio Urine Color Yellow Urine Clarity Clear Urine pH 6.0 Ur Specific [place] 1.015 Urine Protein 100 H Urine Glucose (UA) Normal Urine Ketones 5 H Urine Occult Blood 25 H Urine Nitrite Negative Urine Bilirubin Negative Urine Urobilinogen 4 H Ur Leukocyte Esterase 25 H Urine RBC 0 SEEN Urine WBC 5-10 SEEN Ur Squamous Epith Cells 0 SEEN Urine Bacteria 0 SEEN Urine Mucus 0 SEEN Radiography Diagnostic Testing: Clinical Impression(s) from Imaging Studies Chest X-Ray 10/20/21 15:15 IMPRESSION: Findings concerning for mild pulmonary vascular congestion and interstitial edema in the cardiogenic setting. Electronically Signed: Mark Azul DO at 15:50 EDT Reading Location ID and State: [facility] / [place] , Service support , EKG Initial EKG: Attestation: I personally reviewed and interpreted this EKG as follows: Comments: afib 87 bpm. No concerning features of ACS or ectopy noted <Dr. Andrzej Quigley DO - Last Filed: 10/20/21 19:18> [facility] MDM Narrative Medical decision making narrative: This is a 76-year-old male who was signed out to me at 1500 hrs. for follow-up on blood work and imaging as to the work-up I just been started. There was reported fever at home today after several days of feeling unwell. This was a temporal reading of 101. Patient took nothing for fever prior to arrival and has been afebrile here when talking to them they believe it was erroneous. A septic work-up has already been started. EKG on my interpretation shows atrial fibrillation with a ventricular rate of 87 bpm without sign of ischemic change. Chest x-ray on my interpretation shows a mild degree of pulmonary edema and the radiologist agree. CBC shows a normal white blood cell count of 9.9. Hemoglobin 11.9. Platelets 103 and slightly low but near baseline. Coagulation studies are normal. Creatinine 1.30. Electrolytes within normal limits with exception of a potassium of 3.3. Alkaline phosphatase elevated at 171 total bilirubin elevated 1.2 but otherwise LFTs are within normal limits. Lactic acid 1.4. Urinalysis negative for infection. On reevaluation the patient feels well. He is joking and laughing. He does not want to stay in the hospital I did not find any source of infection. After discussing at length the possibility of an erroneous thermometer reading they do believe that that was the case because the patient feels very well. I spoke with Dr. Batista regarding the patient's blood pressure being elevated and having been required to get some hydralazine and he recommended restarting the amlodipine 5 mg p.o. daily which she was previously on. He will continue the metoprolol as 50 mg p.o. daily extended release. The patient will monitor his blood pressures and call Dr. Batista's office for follow-up. I will also give the patient 40 mg of Lasix IV and we will not change his Lasix for home but will work on his blood pressure. Patient was amenable to this plan. He is discharge d home in stable condition. Impression: 1. Generalized weakness 2. Pulmonary edema 3. Thrombocytopenia 4. History of urinary tract infection 5. Hypertension Lab Data Labs: Laboratory Results - last 24 hr 10/20/21 10/20/21 10/20/21 14:55 14:55 14:55 WBC 9.9 RBC 3.81 L Hgb 11.9 L Hct 36.7 L MCV 96.3 H MCH 31.2 MCHC 32.4 RDW Std Deviation 54.1 H RDW Coeff of Iram 15.2 H Plt Count 103 L MPV 11.2 Immature Gran % (Auto) PROPERTY SITE MANAGER Neut % (Auto) PROPERTY SITE MANAGER Lymph % (Auto) PROPERTY SITE MANAGER [place] % (Auto) PROPERTY SITE MANAGER Eos % (Auto) PROPERTY SITE MANAGER Baso % (Auto) PROPERTY SITE MANAGER Absolute Neuts (auto) 8.3 H Absolute Lymphs (auto) 0.40 L Total Counted 100 Neutrophils % (Manual) 76 H Band Neutrophils % 8 H Lymphocytes % (Manual) 4 L Monocytes % (Manual) 11 H Myelocytes % 1 H Nucleated RBC % PROPERTY SITE MANAGER Differential Comment SCANNED Diff Path Review May foll Platelet Estimate SLT DEC RBC Morphology NORM C+C PT 16.2 H INR 1.3 APTT 35.9 Sodium 141 Potassium 3.3 L Chloride 106 Carbon Dioxide 28.0 Anion Gap 7 BUN 21 H Creatinine 1.30 Estim Creat Clear Calc 49.91 Est GFR (MDRD) Af Amer 69 Est GFR (MDRD) Non-Af 57 L BUN/Creatinine Ratio 16.2 Glucose 151 H Lactic Acid Calcium 8.8 Total Bilirubin 1.20 H AST 20 ALT 19 Alkaline Phosphatase 171 H Troponin I High Sens 22 B-Natriuretic Peptide Total Protein 6.8 Albumin 3.4 Globulin 3.4 Albumin/Globulin Ratio 1.0 Urine Color Urine Clarity Urine pH Ur Specific [place] Urine Protein Urine Glucose (UA) Urine Ketones Urine Occult Blood Urine Nitrite Urine Bilirubin Urine Urobilinogen Ur Leukocyte Esterase Urine RBC Urine WBC Ur Squamous Epith Cells Urine Bacteria Urine Mucus 10/20/21 10/20/21 10/20/21 14:55 14:55 15:35 WBC RBC Hgb Hct MCV MCH MCHC RDW Std Deviation RDW Coeff of Iram Plt Count MPV Immature Gran % (Auto) Neut % (Auto) Lymph % (Auto) [place] % (Auto) Eos % (Auto) Baso % (Auto) Absolute Neuts (auto) Absolute Lymphs (auto) Total Counted Neutrophils % (Manual) Band Neutrophils % Lymphocytes % (Manual) Monocytes % (Manual) Myelocytes % Nucleated RBC % Differential Comment Diff Path Review Platelet Estimate RBC Morphology PT INR APTT Sodium Potassium Chloride Carbon Dioxide Anion Gap BUN Creatinine Estim Creat Clear Calc Est GFR (MDRD) Af Amer Est GFR (MDRD) Non-Af BUN/Creatinine Ratio Glucose Lactic Acid 1.4 Calcium Total Bilirubin AST ALT Alkaline Phosphatase Troponin I High Sens B-Natriuretic Peptide 906.0 H Total Protein Albumin Globulin Albumin/Globulin Ratio Urine Color Yellow Urine Clarity Clear Urine pH 6.0 Ur Specific [place] 1.015 Urine Protein 100 H Urine Glucose (UA) Normal Urine Ketones 5 H Urine Occult Blood 25 H Urine Nitrite Negative Urine Bilirubin Negative Urine Urobilinogen 4 H Ur Leukocyte Esterase 25 H Urine RBC 0 SEEN Urine WBC 5-10 SEEN Ur Squamous Epith Cells 0 SEEN Urine Bacteria 0 SEEN Urine Mucus 0 SEEN Radiography Diagnostic Testing: Clinical Impression(s) from Imaging Studies Chest X-Ray 10/20/21 15:15 IMPRESSION: Findings concerning for mild pulmonary vascular congestion and interstitial edema in the cardiogenic setting. Electronically Signed: Mark Azul DO at 15:50 EDT , Discharge Plan Triage Chief Complaint: Weakness ED Provider: Michoacano Perla Dx/Rx/DC Orders Instructions: Pulmonary Edema, ED Weakness (Uncertain Cause) Prescriptions: No Action cholecalciferol (vitamin D3) 5,000 unit capsule 5,000 unit PO DAILY RF: 0 finasteride 5 mg tablet 5 mg PO DAILY@1200 RF: 0 Trelegy Ellipta 100-62.5-25 mcg blister with device 1 inh inhalation DAILY RF: 0 rosuvastatin 40 mg tablet 20 mg PO DAILY RF: 0 folic acid 1 MG tablet 1 mg PO DAILY@1200 RF: 0 docusate sodium 100 mg capsule 100 mg PO BID RF: 0 pramipexole 0.5 MG tablet 0.5 mg PO TID RF: 0 gabapentin 600 mg tablet 600 mg PO QHS RF: 0 ferrous sulfate 325 MG tablet 65 mg PO DAILY RF: 0 tamsulosin 0.4 MG capsule 0.4 mg PO QHS RF: 0 omeprazole 20 MG capsule 20 mg PO BID RF: 0 PreserVision AREDS 1 EACH tablet 1 each PO BID RF: 0 cyanocobalamin (vitamin B-12) 1,000 MCG/ML solution 1,000 mcg IM Q30D RF: 0 trazodone 50 mg Tablet 50 mg PO QHS RF: 0 carboxymethylcellulose sodium [Refresh Tears] 0.5 % drops 1 drp EACH EYE BID RF: 0 cranberry 400 mg Capsule 400 mg PO DAILY RF: 0 Metamucil 3.4 gram/5.4 gram Powder 1 tbsp PO QODAY RF: 0 Rhinase 15-0.17-20-0.22 % Gel 1 ea INTRANASAL PRN PRN (Reason: DRY NOSE) RF: 0 amlodipine 5 mg tablet 5 mg PO DAILY Qty: 90 RF: 3 losartan 50 mg tablet 50 mg PO BID Qty: 180 RF: 3 amiodarone 200 mg tablet 200 mg PO DAILY Qty: 90 RF: 3 furosemide 40 mg tablet 40 mg PO DAILY Qty: 90 RF: 3 metoprolol succinate 50 mg tablet extended release 24 hr 50 mg PO DAILY Qty: 90 RF: 3 Primary Care Provider: Fany Hobson Referrals: Fany Hobson, [Primary Care Provider] - Disposition Disposition: Home, Self Care
[2021-10-20 15:07] LABS: Hematocrit 36.7 % (40-54); Hemoglobin 11.9 g/dL (13.0-16.5); Mean Corp Hgb Conc 32.4 g/dL (32-36); Mean Corpuscular Hgb 31.2 pg (27.0-32.0); Mean Corpuscular Volume 96.3 fL (80-94); Mean Platelet Vol. 11.2 fl (6.2-12.0); POSITIVE DIFFERENTIAL YES; Platelet Count 103 K/mm3 (150-450); RBC Distribution Width CV 15.2 % (11.6-14.6); RBC Distribution Width SD 54.1 fl (35.1-43.9); Red Blood Count 3.81 M/mm3 (4.6-6.2); White Blood Count 9.9 K/mm3 (4.4-11.0)
--- NOTE | 2021-10-20 15:15 | RAD_ITS ---
STUDY: X-RAY CHEST REASON FOR EXAM: Male, 76 years old. dyspnea TECHNIQUE: Single AP portable view of the chest. COMPARISON: 02/22/2021 FINDINGS: Sternotomy wires are present. Right port in place with tip overlying the mid SVC. Mild prominent pulmonary vasculature and interstitial markings are noted. There is no demonstrated pleural abnormality. There is mild cardiac enlargement. Normal mediastinum and yovanny. Normal visualized pulmonary arteries. There is atherosclerotic calcification of the aortic arch with tortuosity. Normal visualized thoracic spine. Normal visualized ribs, clavicles, and shoulders. There is no demonstrated abnormality of the visualized soft tissue structures of the upper abdomen. RAD/Chest 1 View (Portable) IMPRESSION: Findings concerning for mild pulmonary vascular congestion and interstitial edema in the cardiogenic setting. Electronically Signed: Mark Azul DO at 15:50 EDT ,
[2021-10-20 15:17] LABS: International Normalized Ratio 1.3; Prothrombin Time (Protime)PT. 16.2 SECONDS (11.7-14.9)
[2021-10-20 15:18] LABS: Partial Thromboplast Time 35.9 Seconds (24.1-36.2)
[2021-10-20 15:29] LABS: AST(SGOT) 20 U/L (15-37); Alanine Aminotransfer ALT/SGPT 19 U/L (16-61); Albumin, Serum 3.4 g/dL (3.2-5.0); Alkaline Phosphatase 171 U/L (45-117); Anion Gap 7 (5-15); BUN 21 mg/dL (7-18); BUN/Creat Ratio 16.2 RATIO (10-20); Calcium,Total 8.8 mg/dL (8.5-10.1); Chloride 106 mmol/L (98-107); EST Glomerular Filtration Rate 57 mL/min (>60); Est Glom Filt Rate - Afr Amer 69 mL/min (>60); Estimated Creatinine Clearance 49.91 ml/min; Globulin 3.4 g/dL (2.2-4.2); Glucose 151 mg/dL (74-106); Potassium 3.3 mmol/L (3.5-5.1); Protein, Total 6.8 g/dL (6.4-8.2); Sodium Level 141 mmol/L (136-145); Troponin-I HS 22 pg/mL (3.0-78.0)
[2021-10-20 15:34] LABS: Lactic Acid 1.4 mmol/L (0.4-1.9)
[2021-10-20 15:44] LABS: Bacteria 0 SEEN /hpf (None Seen); Mucous, Urine 0 SEEN /hpf (<or=2+); Red Blood Cells-Urine 0 SEEN /hpf (0-5); Squamous Epithelial Cells - UA 0 SEEN /hpf (0-5)
[2021-10-20 15:46] LABS: Color, Urine Yellow (Yellow); Glucose, Dipstick Normal (Normal); Ketone-Dipstick 5 mg/dl (Negative); Leukocyte Esterase-Dipstick 25 /ul (Negative); Nitrite-Dipstick Negative (Negative); Occult Blood-Urine 25 /ul (Negative); Protein-Dipstick 100 mg/dl (Negative); Specific Gravity, Urine 1.015 (1.002-1.030); Urine Bilirubin Dipstick Negative (Negative); Urine Clarity Clear (Clear); Urine Urobilinogen 4 mg/dl (Normal)
[2021-10-20 15:56] LABS: White Blood Cells 5-10 SEEN /hpf (0-5)
[2021-10-20 16:33] LABS: Scan Smear per Review Criteria MANUAL DIFF
[2021-10-20 16:34] LABS: Differential Comment SCANNED; Lymphocyte 4 % (19-41); Monocyte 11 % (0-10); Myelocyte 1 % (0-0); Neutrophil-Band 8 % (0-5); Neutrophil-Segmented 76 % (47-70); Platelet Estimate SLT DEC (ADEQ); Red Cell Morphology NORM C+C NORMAL (NORM C&C); Total Cells Counted 100 (MANUAL DIFF)
[2021-10-20 16:37] LABS: Absolute Neutrophil Count 8.3 X10^3/uL (2.0-7.7); Differential Indicated MANUAL DIFF; Neutrophil # 8.32 X10^3/uL (2.7-7.7)
[2021-10-20] MEDS: Furosemide 40 MG/4 ML Vial IV (19:16)
--- NOTE | 2021-10-20 19:27 | NURSING ---
port flushed with heparin prior to removal
[2021-10-22 13:22] LABS: Pathologist Review Reviewed
== END 2021-10-20 19:29 | disposition home or self-care (01) ==
PROVIDERS: Student in an Organized Health Care Education/Training Program; Emergency Provider Emergency Medicine; PCP Internal Medicine; Visit Provider Emergency Medicine
DX: R53.1 Weakness (principal); G20 Parkinson's disease; J44.9 Chronic obstructive pulmonary disease, unspecified; I27.20 Pulmonary hypertension, unspecified; F10.20 Alcohol dependence, uncomplicated; I48.19 Other persistent atrial fibrillation; D69.6 Thrombocytopenia, unspecified; J81.1 Chronic pulmonary edema; R06.00 Dyspnea, unspecified; R74.8 Abnormal levels of other serum enzymes; I25.10 Atherosclerotic heart disease of native coronary artery without angina pectoris; I10 Essential (primary) hypertension; E78.5 Hyperlipidemia, unspecified; G47.33 Obstructive sleep apnea (adult) (pediatric); K21.9 Gastro-esophageal reflux disease without esophagitis; E66.9 Obesity, unspecified; I25.2 Old myocardial infarction; Z79.899 Other long term (current) drug therapy; Z87.891 Personal history of nicotine dependence; Z95.5 Presence of coronary angioplasty implant and graft
CPT/HCPCS: 36591; 71045; 80053; 81001; 83605; 83880; 84484; 85025; 85610; 85730; 87040; 87428; 93005; 96374; 99283; A4216; J1940

== ENCOUNTER 2021-10-27 09:00 | Outpatient (CLI) | payer MEDICARE, OTHER, SELFPAY ==
[2021-10-27 09:23] VITALS: BP 123/54; PULSE 102; RESP 20; TEMP 36.9; O2SAT 96
[2021-10-27] MEDS: Ceftriaxone 2 GM in 0.9% NS 50 ML Minibag x1 IV (09:28)
[2021-10-27 10:44] VITALS: BP 140/74; PULSE 72; RESP 18; TEMP 36.6; O2SAT 95
== END 2021-10-27 10:50 | disposition home or self-care (01) ==
LOC: MEDOUTP 09:01 → ICU 09:06
PROVIDERS: PCP Internal Medicine; Referring Provider Internal Medicine; Visit Provider Internal Medicine
DX: N39.0 Urinary tract infection, site not specified (principal); Z16.24 Resistance to multiple antibiotics
CPT/HCPCS: 96365; J7050; J0696

== ENCOUNTER 2021-10-28 08:58 | Outpatient (CLI) | payer MEDICARE, OTHER, SELFPAY ==
[2021-10-28 09:14] VITALS: BP 120/68; PULSE 75; RESP 22; TEMP 36.3; O2SAT 94
[2021-10-28] MEDS: Ceftriaxone 2 GM in 0.9% NS 50 ML Minibag x1 IV (09:30)
[2021-10-28] MEDS: 0.9 % NaCl (Sterile) Posiflush 10 mL IV (09:31)
[2021-10-28 10:46] VITALS: BP 128/70; PULSE 68; RESP 18; TEMP 36.8; O2SAT 94
[2021-10-28] MEDS: 0.9% Saline Lock 10 ML Syringe IV (11:02)
== END 2021-10-28 10:00 | disposition home or self-care (01) ==
LOC: MEDOUTP 09:00 → PCU 09:01
PROVIDERS: PCP Internal Medicine; Visit Provider Internal Medicine
DX: N39.0 Urinary tract infection, site not specified (principal); Z16.24 Resistance to multiple antibiotics
CPT/HCPCS: 96365; J7050; A4216; J0696

== ENCOUNTER → 2021-10-29 | Outpatient (CLI) | payer MEDICARE, OTHER, SELFPAY ==
[2021-10-29 09:21] VITALS: BP 136/61; PULSE 62; RESP 16; TEMP 36.2; O2SAT 96
[2021-10-29] MEDS: 0.9% NaCl Peripheral Flush Adult/Peds IV ×2 (09:51→10:48)
[2021-10-29] MEDS: 0.9% NaCl IVPB Med Flush (250 mL) 15 ML IV (09:51)
[2021-10-29 10:53] VITALS: BP 135/57; PULSE 61; RESP 16; TEMP 36.2; O2SAT 96
== END | disposition home or self-care (01) ==
LOC: MEDOUTP 09:01
PROVIDERS: PCP Internal Medicine; Referring Provider Internal Medicine; Visit Provider Internal Medicine
DX: N39.0 Urinary tract infection, site not specified (principal); Z16.24 Resistance to multiple antibiotics
CPT/HCPCS: 96365; J7050; A4216; J0696

== ENCOUNTER → 2021-10-30 | Outpatient (CLI) | payer MEDICARE, OTHER, SELFPAY ==
[2021-10-30 09:08] VITALS: BP 125/61; PULSE 70; RESP 18; TEMP 36; O2SAT 97
[2021-10-30] MEDS: 0.9% NaCl Peripheral Flush Adult/Peds IV ×2 (09:24→10:30)
[2021-10-30] MEDS: 0.9% NaCl IVPB Med Flush (250 mL) 15 ML IV (09:24)
[2021-10-30 10:32] VITALS: BP 120/50; PULSE 62; TEMP 36.2
== END | disposition home or self-care (01) ==
LOC: MEDOUTP 08:53
PROVIDERS: PCP Internal Medicine; Referring Provider Internal Medicine; Visit Provider Internal Medicine
DX: N39.0 Urinary tract infection, site not specified (principal); Z16.24 Resistance to multiple antibiotics
CPT/HCPCS: 96365; J7050; A4216; J0696

== ENCOUNTER → 2022-01-04 | Outpatient (CLI) | payer MEDICARE, OTHER, SELFPAY ==
--- NOTE | 2022-01-04 08:04 | US_ITS ---
STUDY: ABDOMINAL ULTRASOUND - RIGHT UPPER QUADRANT REASON FOR VISIT: Male, 76 years old ELEVATED PHYLLIS LIKE PHOSPHATASE LEVEL TECHNIQUE: Ultrasound evaluation of the right upper quadrant was performed with real-time and static barone-scale imaging. TECHNICAL QUALITY: Adequate. COMPARISON: None. FINDINGS: Liver: The liver is enlarged and measures 21.5 cm. There is normal echogenicity of the liver. The bile ducts are within normal limits. There is hepatic color flow. The direction of portal flow is hepatopetal. There is no demonstrated mass lesion. Gallbladder: Normal distended gallbladder. The gallbladder wall measures 2.4 mm. There is a negative sonographic Mcgrath''s sign. There is no pericholecystic fluid. There are no gallstones. Common Bile Duct (C.B.D.): The common bile duct measures 3.2 mm. Pancreas: Normal size of the head, body and tail of the pancreas. There is increased echogenicity of the pancreas. There is no demonstrated pancreatic mass or cyst. Right Kidney: Normal size of the right kidney. The right kidney measures 10.8 cm x 6 cm x 5.5 cm. Normal renal cortex. The right cortex measures 1.5 cm. There is no demonstrated renal mass or cyst. There is no right hydronephrosis. No right adrenal mass measuring 5.4 cm x 7.3 cm x 6.1 cm. US/Liver IMPRESSION: Hepatomegaly and fatty infiltration of the liver. Right adrenal mass measuring 5.4 cm x 7.3 cm x 6.1 cm. Electronically Signed: Navdeep Pacheco MD at 11:04 EDT ,
== END | disposition home or self-care (01) ==
LOC: US 08:02
PROVIDERS: PCP Internal Medicine; Referring Provider Internal Medicine; Visit Provider Internal Medicine
DX: R74.8 Abnormal levels of other serum enzymes (principal)
CPT/HCPCS: 76705

== ENCOUNTER → 2022-01-15 | Outpatient (CLI) | payer MEDICARE, OTHER, SELFPAY ==
[2022-01-15 12:35] LABS: Vitamin B12 543 pg/mL (211-911); Vitamin D,25 Hydroxy 48.8 ng/mL
[2022-01-15 12:39] LABS: ALB/GLOB Ratio 1.1 RATIO (0.9-2.4); AST(SGOT) 18 U/L (15-37); Alanine Aminotransfer ALT/SGPT 17 U/L (16-61); Albumin, Serum 3.5 g/dL (3.2-5.0); Alkaline Phosphatase 121 U/L (45-117); Anion Gap 3 (5-15); BUN 14 mg/dL (7-18); Calcium,Total 8.5 mg/dL (8.5-10.1); Chloride 108 mmol/L (98-107); Cholesterol 100 mg/dL (200); Creatinine, Serum 1.08 mg/dL (0.70-1.30); EST Glomerular Filtration Rate 71 mL/min (>60); Est Glom Filt Rate - Afr Amer 85 mL/min (>60); Globulin 3.3 g/dL (2.2-4.2); Glucose 106 mg/dL (74-106); High Density Lipoprotein 47 mg/dL; Potassium 3.9 mmol/L (3.5-5.1); Protein, Total 6.8 g/dL (6.4-8.2); Sodium Level 143 mmol/L (136-145); Thyroid Stim Hormone (TSH) 4.09 uIU/mL (0.358-3.74); Triglycerides 103 mg/dL; Very Low Density Lipoprotein 21 mg/dL (5-40)
== END | disposition home or self-care (01) ==
LOC: PSN 11:27
PROVIDERS: PCP Internal Medicine; Referring Provider Nurse Practitioner Gerontology; Visit Provider Nurse Practitioner Gerontology
DX: E03.9 Hypothyroidism, unspecified (principal); E11.9 Type 2 diabetes mellitus without complications; E55.9 Vitamin D deficiency, unspecified; E53.8 Deficiency of other specified B group vitamins; E78.5 Hyperlipidemia, unspecified; Z87.440 Personal history of urinary (tract) infections
CPT/HCPCS: 36415; 80053; 80061; 82306; 82607; 84443; 93225; 93226

== ENCOUNTER → 2022-02-01 | Outpatient (CLI) | payer MEDICARE, OTHER, SELFPAY ==
[2022-02-01] MEDS: 0.9% NaCl IVPB Med Flush (250 mL) 15 ML IV (14:51)
[2022-02-01 14:55] VITALS: BP 146/63; PULSE 91; RESP 18; TEMP 38.6; O2SAT 100
[2022-02-01] MEDS: 0.9% NaCl Peripheral Flush Adult/Peds IV (15:54)
[2022-02-01 15:55] VITALS: BP 132/57; PULSE 81
== END | disposition home or self-care (01) ==
LOC: MEDOUTP 14:38
PROVIDERS: PCP Internal Medicine; Referring Provider Internal Medicine; Visit Provider Internal Medicine
DX: N39.0 Urinary tract infection, site not specified (principal); Z16.24 Resistance to multiple antibiotics
CPT/HCPCS: 96365; J7050; A4216; J0696

== ENCOUNTER 2022-02-02 14:46 | Outpatient (CLI) | payer MEDICARE, OTHER, SELFPAY ==
[2022-02-02 15:00] VITALS: BP 116/61; PULSE 80; RESP 18; TEMP 36.4; O2SAT 97
[2022-02-02] MEDS: 0.9% Saline Lock 10 ML Syringe IV (15:59)
== END 2022-02-02 16:05 | disposition home or self-care (01) ==
LOC: MEDOUTP 14:46 → MS3 14:47
PROVIDERS: PCP Internal Medicine; Referring Provider Internal Medicine; Visit Provider Internal Medicine
DX: N39.0 Urinary tract infection, site not specified (principal); Z16.24 Resistance to multiple antibiotics
CPT/HCPCS: 96365; A4216; J0696

== ENCOUNTER 2022-02-03 13:39 | Outpatient (CLI) | payer MEDICARE, OTHER, SELFPAY ==
[2022-02-03] MEDS: 0.9% Saline Lock 10 ML Syringe IV ×2 (14:06→14:53)
== END 2022-02-03 15:02 | disposition home or self-care (01) ==
LOC: MEDOUTP 13:39 → PCU 13:39
PROVIDERS: PCP Internal Medicine; Referring Provider Internal Medicine; Visit Provider Internal Medicine
DX: N39.0 Urinary tract infection, site not specified (principal); Z16.24 Resistance to multiple antibiotics
CPT/HCPCS: 96365; J7050; A4216; J0696

== ENCOUNTER → 2022-02-04 | Outpatient (CLI) | payer MEDICARE, OTHER, SELFPAY ==
[2022-02-04] MEDS: 0.9% NaCl IVPB Med Flush (250 mL) 15 ML IV (14:12)
[2022-02-04 14:16] VITALS: BP 137/57; PULSE 64; RESP 16; TEMP 36.2; O2SAT 100
[2022-02-04] MEDS: 0.9% NaCl Peripheral Flush Adult/Peds IV (14:51)
[2022-02-04 15:12] VITALS: BP 122/57; PULSE 69; RESP 16; TEMP 35.9; O2SAT 99
== END | disposition home or self-care (01) ==
LOC: MEDOUTP 13:55
PROVIDERS: PCP Internal Medicine; Referring Provider Internal Medicine; Visit Provider Internal Medicine
DX: N39.0 Urinary tract infection, site not specified (principal); Z16.24 Resistance to multiple antibiotics
CPT/HCPCS: 96365; J7050; A4216; J0696

== ENCOUNTER 2022-03-13 11:59 | Observation (INO) | payer MEDICARE, OTHER, SELFPAY ==
--- NOTE | 2022-03-08 14:00 | EKG12_ITS ---
Test Reason : PREOP Blood Pressure : / mmHG Vent. Rate : 064 BPM Atrial Rate : 234 BPM P-R Int : 000 ms QRS Dur : 112 ms QT Int : 448 ms P-R-T Axes : 000 -46 -06 degrees QTc Int : 462 ms Atrial fibrillation Left axis deviation Abnormal ECG Confirmed by SUNIL CLEARY, TATI ([id number]), commercial production editor DAVID FLOWER ([id number]) on 03/11/2022 9:40:15 AM Referred By: Zander Graham Confirmed By:TATI BARBER MD
[2022-03-08 16:11] LABS: Hematocrit 38.1 % (40-54); Hemoglobin 12.3 g/dL (13.0-16.5); Mean Corp Hgb Conc 32.3 g/dL (32-36); Mean Corpuscular Hgb 30.5 pg (27.0-32.0); Mean Corpuscular Volume 94.5 fL (80-94); Mean Platelet Vol. 11.4 fl (6.2-12.0); Platelet Count 127 K/mm3 (150-450); RBC Distribution Width CV 13.9 % (11.6-14.6); RBC Distribution Width SD 48.2 fl (35.1-43.9); Red Blood Count 4.03 M/mm3 (4.6-6.2); White Blood Count 9.3 K/mm3 (4.4-11.0)
[2022-03-08 16:36] LABS: Anion Gap 6 (5-15); BUN 23 mg/dL (7-18); Calcium,Total 9.2 mg/dL (8.5-10.1); Chloride 105 mmol/L (98-107); Creatinine, Serum 1.21 mg/dL (0.70-1.30); EST Glomerular Filtration Rate 62 mL/min (>60); Est Glom Filt Rate - Afr Amer 75 mL/min (>60); Glucose 123 mg/dL (74-106); Sodium Level 141 mmol/L (136-145)
[2022-03-08 16:37] LABS: International Normalized Ratio 1.2; Prothrombin Time (Protime)PT. 14.9 SECONDS (11.7-14.9)
[2022-03-13] VITALS (13 sets, daily range): BP systolic 124–152; BP diastolic 51–92; PULSE 49–71; RESP 16–20; TEMP 36.3–36.6; O2SAT 92–99; BMI 44.6
[2022-03-13] MEDS: Lactated Ringers 1,000 ML 15 ML IV (09:58)
--- NOTE | 2022-03-13 11:30 | PROS_PTH ---
PATIENT: JV DURHAM Jr. LOC: MS3 U#:[id number] AGE/SX: 76/M ROOM: [facility] [place] RE03/13/[address]: Dr. Zander Graham MD : 1945 BED: 1 DIS: 03/14/2022 SPEC #: [id number] RECD: 03/13/22 15:09 STATUS: ELIZABETH CORREA #: [id number] ROXANA: 03/13/22 11:[address]: Zander Graham DEPT: SURGICAL PATHOLOGY RECD BY: Candace Guido ENTERED: 03/14/22 08:21 SP TYPE: TURP OTHR DR: Dr. Fany Hobson, DO Tissues: Prostate, NOS Procedures: Surgery Specimen Level IV HEADER OPERATION: Cysto, TUR prostate, Olympus PRE-OP DIAGNOSIS: BPH with obstruction TISSUE SUBMITTED: Prostate tissue MICROSCOPIC DIAGNOSIS Prostate, transurethral resection: Benign prostatic tissue. Urothelium with associated chronic inflammation. AM:armando 03/15/2022 MICROSCOPIC DESCRIPTION Slides are reviewed. GROSS DESCRIPTION Received is one container labeled with the patient's name and designated prostate tissue. The specimen consists of multiple irregular fragments of pink-leary, rubbery, soft tissue that in aggregate weigh 1.7 gm and measure in aggregate 4 x 2 x 0.3 cm. The entire specimen is submitted in two cassettes. Two metallic clips are also noted in the specimen. / SCAR:armando 03/14/2022 TC:3 CPT: 88175
--- NOTE | 2022-03-13 12:01 | HP.PCM_ITS ---
[facility] - General General Date of Service: 03/13/22 HPI Narrative JV DURHAM, is a 76 M who presents for transurethral resection of prostate history of BPH with obstruction [facility] Medical History (Updated 03/07/22 @ 10:56 by Michelle Stout) Acute kidney injury Adenocarcinoma of lung, stage 1 Alcohol dependence Ambulates with cane Amputated great toe of left foot Amputation of one or more toes Anemia Arthritis Atherosclerosis of coronary artery of [place] heart without angina pectoris Benign essential hypertension BiPAP (biphasic positive airway pressure) dependence Cancer of upper lobe of left lung Chronic combined systolic and diastolic CHF (congestive heart failure) Chronic gastritis Chronic ulcer of left foot with fat layer exposed COPD (chronic obstructive pulmonary disease) COVID Dementia Diverticular disease Emphysema, unspecified Essential tremor Former smoker Gastric AVM Gastric reflux GERD (gastroesophageal reflux disease) GI bleed Hammer toe of left foot History of atrial fibrillation History of echocardiogram History of edema History of pain when walking History of stress test Hx of cancer of lung Hx of fracture of ankle Hyperlipidemia Hypertension Injury of head and neck Iron deficiency anemia due to chronic blood loss Longstanding persistent atrial fibrillation Migraine headache Multiple premature ventricular complexes NSTEMI (non-ST elevated myocardial infarction) (12/02/19) On home oxygen therapy HEBER (obstructive sleep apnea) Parkinson's disease Parkinsons Polyp of colon, adenomatous 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 Pulmonary hypertension Respiratory failure with hypoxia Right ventricular dilation, secondary Right ventricular systolic dysfunction Sepsis 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 Uses wheelchair Walker as ambulation aid Wears glasses Home Medications folic acid 1 mg tablet 1 mg PO DAILY@1200 supplement 05/06/13 [History Last Taken 07/14/20] pramipexole 0.5 mg tablet 0.5 mg PO TID parkinsons 12/04/16 [History Last Taken 10/06/20] docusate sodium 100 mg capsule 100 mg PO BID bowels 10/20/17 [History Last Taken 07/14/20] ferrous sulfate 325 mg (65 mg iron) tablet 65 mg PO DAILY supplement 02/01/19 [History Last Taken 07/14/20] cholecalciferol (vitamin D3) 125 mcg (5,000 unit) capsule 5,000 unit PO DAILY cholesterol 03/30/19 [History Last Taken 07/14/20] tamsulosin 0.4 mg capsule 0.4 mg PO QHS urinary 07/12/19 [History Last Taken 07/13/20] vitamins A,C,X-icyo-knstkc 2,148 mcg-113 mg-45 mg-17.4 mg tablet (PreserVision AREDS) 1 each PO BID eye health 09/03/19 [History Last Taken 07/14/20] finasteride 5 mg tablet 5 mg PO DAILY@1200 12/22/19 [History Last Taken 07/14/20] cyanocobalamin (vitamin B-12) 1,000 mcg/mL injection solution 1,000 mcg IM Q30D 03/10/20 [History Last Taken 06/30/20] fluticasone fur. 100 mcg-umeclid 62.5 mcg-vilant 25 mcg inhalat.powder (Trelegy Ellipta) 1 inh inhalation DAILY 01/01/21 [History Last Taken Unknown] cranberry 400 mg capsule 400 mg PO DAILY 03/21/21 [History Last Taken Unknown] peg 15 %-potass chl 0.17 %-propyl gly 20 %-sodium chl 0.22 % nasal gel (Rhinase) 1 ea intranasal PRN PRN DRY NOSE 03/21/21 [History Last Taken Unknown] trazodone 50 mg tablet 50 mg PO QHS 03/21/21 [History Last Taken Unknown] furosemide 40 mg tablet 40 mg PO BID #180 tabs 11/02/21 [Rx Last Taken Unknown] metoprolol succinate 100 mg tablet,extended release 24 hr 100 mg PO DAILY bp,heart #90 tabs 11/26/21 [Rx Last Taken 03/13/22 07:00] amlodipine 5 mg tablet 5 mg PO DAILY htn #90 tabs 12/31/21 [Rx Last Taken 03/13/22 07:00] spironolactone 25 mg tablet 25 mg PO DAILY #30 tabs 01/04/22 [Rx Last Taken Unknown] losartan 100 mg tablet 50 mg PO BID #90 tabs 02/25/22 [Rx Last Taken 03/13/22 07:00] gabapentin 600 mg tablet 600 mg PO QHS nerve pain 03/05/22 [History Last Taken Unknown] omeprazole 20 mg capsule,delayed release 20 mg PO DAILY 03/05/22 [History Last Taken Unknown] rosuvastatin 20 mg tablet 20 mg PO DAILY 03/05/22 [History Last Taken Unknown] ciprofloxacin HCl 500 mg tablet (Cipro) 500 mg PO BID #14 tabs 03/13/22 [Rx Last Taken Unknown] Allergy/AdvReac Type Severity Reaction Status Date / Time No Known Allergies Allergy Verified 03/13/22 09:48 Family History Sister Alcoholism Cancer Mother Arthritis Father Arthritis Brother Cancer Surgical History (Updated 03/07/22 @ 10:56 by Michelle Stout) H/O coronary artery bypass surgery (02/14/06) History of cardioversion (12/2016) History of colonoscopy (03/22/20) History of coronary artery stent placement (12/23/06) History of esophagogastroduodenoscopy (03/22/20) History of hammer toe correction History of left heart catheterization (2016) History of lobectomy of lung History of open reduction and internal fixation (ORIF) procedure History of open reduction and internal fixation (ORIF) procedure History of right and left heart catheterization (12/04/16) History of tonsillectomy and adenoidectomy Hx of toe surgery Status post insertion of iliac artery stent (08/04/12) Status post surgical removal of neoplasm of skin SURGICAL REMOVAL LEFT GREAT TOE Social History Smoking Status: Former smoker how long ago did patient quit smokin years ago second hand exposure: No alcohol intake: current alcohol intake frequency: holidays/special occasions only Alcohol type: wine substance use type: does not use caffeine: Yes Type: coffee Number of servings: 1 what type of physical activity do you participate in: none frequency: does not exercise seatbelt use: always Vital Signs Vital Signs Vital Signs: 03/13/22 09:53 03/13/22 09:53 Temperature 97.8 F Temperature Source Temporal Pulse Rate 60 Respiratory Rate 16 Respiratory Pattern Normal Blood Pressure 146/61 H Blood Pressure Mean 89 Blood Pressure Source Monitor Blood Pressure Position Semi-Fowlers Blood Pressure Location Left Arm Pulse Ox 98 Oxygen Delivery Method Nasal Cannula Oxygen Flow Rate (L/min) 3 Weight Weight: 137 kg Body Mass Index (BMI) 44.6 Results Lab / Micro Data Result Diagrams: 03/08/22 14:23 03/08/22 14:23
--- NOTE | 2022-03-13 12:02 | DCINST_ITS ---
Discharge Instructions Diet Discharge Diet: No restrictions, Light diet - advance as tolerated and Soft diet Activity Discharge Activity: Return to Normal Activity Dressing / Incision Call your doctor if your incision/area has: Continuous Slow Oozing Follow Up Care Please Follow Up With: Zander Graham MD When: 2 weeks Test Results: Test results from this visit will be discussed in further detail at your follow- up appointment, if applicable. Discharge Plan Admission Primary Reason for Your Visit: TUR Attending Provider: Zander Graham Primary Care Provider: Fany Hobson Instructions Patient Instructions: [facility] Home Recovery Discharge Orders/Prescriptions Prescriptions: New ciprofloxacin HCl [Cipro] 500 mg tablet 500 mg PO BID Qty: 14 0RF Continued cholecalciferol (vitamin D3) 5,000 unit capsule 5,000 unit PO DAILY finasteride 5 mg tablet 5 mg PO DAILY@1200 Trelegy Ellipta 100-62.5-25 mcg blister with device 1 inh inhalation DAILY omeprazole 20 mg capsule,delayed release(DR/EC) 20 mg PO DAILY rosuvastatin 20 mg tablet 20 mg PO DAILY spironolactone 25 mg tablet 25 mg PO DAILY Qty: 30 11RF folic acid 1 MG tablet 1 mg PO DAILY@1200 docusate sodium 100 mg capsule 100 mg PO BID Rx Instructions: noon and bedtime pramipexole 0.5 MG tablet 0.5 mg PO TID gabapentin 600 mg tablet 600 mg PO QHS ferrous sulfate 325 MG tablet 65 mg PO DAILY tamsulosin 0.4 MG capsule 0.4 mg PO QHS PreserVision AREDS 1 EACH tablet 1 each PO BID cyanocobalamin (vitamin B-12) 1,000 MCG/ML solution 1,000 mcg IM Q30D trazodone 50 mg Tablet 50 mg PO QHS cranberry 400 mg Capsule 400 mg PO DAILY Rhinase 15-0.17-20-0.22 % Gel 1 ea INTRANASAL PRN PRN (Reason: DRY NOSE) furosemide 40 mg tablet 40 mg PO BID Qty: 180 2RF metoprolol succinate 100 mg tablet extended release 24 hr 100 mg PO DAILY Qty: 90 3RF amlodipine 5 mg tablet 5 mg PO DAILY Qty: 90 3RF losartan 100 mg tablet 50 mg PO BID Qty: 90 3RF Referrals / Follow Up: Fany Hobson DO [Primary Care Provider] - Zander Graham MD [Med Staff - Active Staff] - Disposition Disposition (needs filled in before D/C Order can be placed): Home, Self Care
--- NOTE | 2022-03-13 12:03 | PCM.OPRPT ---
Report of Operation Date of Procedure: 03/13/22 Pre-Operative Diagnosis: BPH with obstruction Post-Operative Diagnosis: Same Surgery/Procedure Performed:: Transurethral section of prostate, removal of foreign bodies Description of Surgical Findings:: In the preoperative setting I discussed with the patient how the surgery would be done with expect afterwards. We discussed how a prostate resection is done and we discussed the risk of the surgery including, bleeding, infection, retrograde ejaculation, changes with ejaculation or intercourse,. We discussed the possibility that the resection of the prostate may not alleviate his urinary symptoms. We discussed the small risk of developing scar tissue along the urethral channel and strictures. We also discussed the chance of the prostate could grow back and he may need further surgery or treatment in the future for prostate problems. Patient was taken back to the operating room, timeout procedure was performed, he was identified and marked and placed on the operating room table. He underwent general spinal anesthesia, the penis and testicles were prepped and draped in usual sterile fashion went into the bladder with a 24 Bulgarian noncontinuous flow Olympus resectoscope I used the button mostly to start resecting the prostatic tissue he did had several UroLift clips of the chemo classes clips these foreign bodies were removed from the bladder, we then resected the tissue on the right side resected tissue in the left side apical tissue work my way down to the apex and very carefully resected the apical tissue mostly using the button. Specimen was handed off, after resecting prostate open had a wide open flow sphincter was intact anesthesia was reversed and is taken back to the PACU in good condition he did have UroLift and before and the UroLift was removed all clips 6 of them were removed and he had a open channel that was resected open. CPT 00478 Surgeon: Zander Graham Type of Anesthesia: Spinal General Anesthesia Drains: bello 3 way Admit VTE Documentation VTE Present on Admission: No VTE Mechan Device Prophylaxis: SCD's VTE Pharm Prophylaxis ordered?: No
[2022-03-13] MEDS: Multivitamin (Healthy Eyes) Capsule 1 CAP PO (18:55)
[2022-03-13] MEDS: Furosemide 40 MG Tablet PO (18:55)
[2022-03-13] MEDS: Lactated Ringers 1,000 ML 125 ML IV (19:02)
[2022-03-13] MEDS: Budesonide Respules 0.5 MG/2 ML AMPUL.NEB. INHALATION (20:32)
[2022-03-13] MEDS: Ipratropium/Albuterol Sulfate 3 ML AMPUL.NEB INHALATION (20:32)
[2022-03-13] MEDS: Losartan Potassium 50 MG Tablet PO (22:20)
[2022-03-13] MEDS: Docusate Sodium 100 MG Capsule 200 MG PO (22:20)
[2022-03-13] MEDS: traZODone 50 MG Tablet PO (22:20)
[2022-03-13] MEDS: Tamsulosin HCl 0.4 MG Capsule PO (22:20)
[2022-03-13] MEDS: Atorvastatin Calcium 40 MG Tablet PO (22:20)
[2022-03-13] MEDS: Acetaminophen 325 MG Tablet PO (22:21)
[2022-03-13] MEDS: Gabapentin 600 MG Tablet PO (22:21)
[2022-03-13] MEDS: Pramipexole Di-HCl 0.5 MG Tablet PO (22:21)
--- NOTE | 2022-03-14 00:40 | NURSING ---
Per patient he thinks he had his flu shot this year at his PCP, but he isn't sure.
[2022-03-14] MEDS: Lactated Ringers 1,000 ML 125 ML IV (03:15)
[2022-03-14 04:10] VITALS: PULSE 62; O2SAT 97
[2022-03-14 04:40] VITALS: BP 150/66; PULSE 63; RESP 18; TEMP 36.4; O2SAT 96
[2022-03-14 04:56] VITALS: BP 150/66; PULSE 63; RESP 18; TEMP 36.4; O2SAT 96
[2022-03-14] MEDS: Pramipexole Di-HCl 0.5 MG Tablet PO (04:58)
[2022-03-14 07:18] VITALS: PULSE 67; RESP 18; O2SAT 95
[2022-03-14] MEDS: Ipratropium/Albuterol Sulfate 3 ML AMPUL.NEB INHALATION (07:18)
[2022-03-14] MEDS: Budesonide Respules 0.5 MG/2 ML AMPUL.NEB. INHALATION (07:18)
--- NOTE | 2022-03-14 07:44 | PCM.PN.GU ---
Subjective Subjective s/p turp doing well d/c bello home after voids Objective Data Objective Data Vital Signs: Vital Signs Temp Pulse Resp BP Pulse Ox O2 Del Method O2 Flow Rate 97.5 F L 67 18 150/66 H 95 Nasal Cannula 3 03/14/22 04:56 03/14/22 07:18 03/14/22 07:18 03/14/22 04:56 03/14/22 07:18 03/14/22 07:18 03/14/22 07:18 Oxygen Flow Rate (L/min) 3 Oxygen Delivery Method Nasal Cannula Weight: 137 kg Body Mass Index (BMI) 44.6 Intake & Output: Intake and Output for Last 24 Hours 03/12/22 03/13/22 03/14/22 23:59 23:59 23:59 Intake Total 295 / 295 1000 / 1000 Output Total 5525 / 5525 1650 / 1650 Balance -5230 / -5230 -650 / -650 Lab / Micro Data Result Diagrams: 03/08/22 14:23 03/08/22 14:23
[2022-03-14 07:51] VITALS: BP 128/50; PULSE 65; RESP 18; TEMP 36.8; O2SAT 98
[2022-03-14 08:56] VITALS: BP 128/50; PULSE 65; RESP 18; TEMP 36.8; O2SAT 98
[2022-03-14] MEDS: 0.9% Saline Lock 10 ML Syringe IV (09:04)
[2022-03-14] MEDS: Docusate Sodium 100 MG Capsule 200 MG PO (09:26)
[2022-03-14] MEDS: Folic Acid 1 MG Tablet PO (09:26)
[2022-03-14] MEDS: Pantoprazole Sodium 20 MG Tablet PO (09:26)
[2022-03-14] MEDS: Furosemide 40 MG Tablet PO (09:26)
[2022-03-14] MEDS: Multivitamin (Healthy Eyes) Capsule 1 CAP PO (09:26)
--- NOTE | 2022-03-14 10:07 | CASEMGMT ---
Addendum entered by Jayde Olson 03/14/22 12:52: Pt states he wears O2 @ home from [employer] @ 3 l/m continuous during the day and 4 l/m @ HS bleed-in thru PAP. Original Note: [place] MARTINES NOTE: Discharge order is in. [place] CM to room to talk w/pt. Introduced self and role. Pt denies having any discharge or home-going needs. He states he lives w/his who is able to assist him as needed. He uses a walker @ baseline. He states his will be picking him up to take him home @ discharge. Eyad RODRIGUEZ RN CM
== END 2022-03-14 11:48 | disposition home or self-care (01) ==
LOC: SDC 15:54 → MS3 15:54
PROVIDERS: Anesthesiology; Admitting Provider Urology; PCP Internal Medicine; Referring Provider Urology; Visit Provider Urology
PROC: (CPT 52601; principal; 2022-03-13 11:20)
DX: N40.1 Benign prostatic hyperplasia with lower urinary tract symptoms (principal); J43.9 Emphysema, unspecified; I11.0 Hypertensive heart disease with heart failure; I50.42 Chronic combined systolic (congestive) and diastolic (congestive) heart failure; D50.0 Iron deficiency anemia secondary to blood loss (chronic); Z86.16 Personal history of COVID-19; I25.10 Atherosclerotic heart disease of native coronary artery without angina pectoris; Z87.891 Personal history of nicotine dependence; E78.5 Hyperlipidemia, unspecified; N30.00 Acute cystitis without hematuria; R39.14 Feeling of incomplete bladder emptying; N13.8 Other obstructive and reflux uropathy; Z79.899 Other long term (current) drug therapy; Z79.82 Long term (current) use of aspirin; Z99.81 Dependence on supplemental oxygen; Z79.84 Long term (current) use of oral hypoglycemic drugs; Z79.01 Long term (current) use of anticoagulants; M19.90 Unspecified osteoarthritis, unspecified site; K21.9 Gastro-esophageal reflux disease without esophagitis; G47.33 Obstructive sleep apnea (adult) (pediatric); I25.2 Old myocardial infarction
CPT/HCPCS: 52601; 00914; 36415; 80048; 85027; 85610; 88305; 93005; 94640; 94762; 96360; 96361; 99218; 99251; J7120; A4216; G0378; G0463; J2405

== ENCOUNTER 2022-03-15 10:40 | Inpatient (IN) | payer MEDICARE, OTHER, SELFPAY ==
[2022-03-15] VITALS (12 sets, daily range): BP systolic 153–184; BP diastolic 55–91; PULSE 66–105; RESP 16–19; TEMP 36.2–37.2; O2SAT 96–100; BMI 43.2; BMI 42.5
--- NOTE | 2022-03-15 11:25 | EX.ED.GUMALE ---
HPI History of Present Illness Chief Complaint: Abd Pain Detail of Chief Complaint: Unable to urinate post TURP. Also constipated. Gross hematuria with clots Informant: patient and spouse/S.O. Pain Onset: Today Context: Gradual Onset Timing: Continuous Current Severity: Mild Maximum Severity: Mild Narrative Narrative: 76-year-old male history of benign prostatic hypertrophy, Parkinson's disease, A. fib fib. He is on no blood thinners nor aspirin. Also history of borderline diabetes and COPD on 3 to 4 L of oxygen. This past Friday 2 days ago he had a TURP procedure done by Dr. Max Graham here. He was doing well. Has been passing blood and clots and now is unable to urinate. He is also had constipation. Denies fever. On no blood thinners. Prior similar symptoms: No Recent Illness/Hospitalization: Yes PFSH FOR[facility] Medical History Acute kidney injury Adenocarcinoma of lung, stage 1 Alcohol dependence Ambulates with cane Amputated great toe of left foot Amputation of one or more toes Anemia Arthritis Atherosclerosis of coronary artery of [place] heart without angina pectoris Benign essential hypertension BiPAP (biphasic positive airway pressure) dependence Cancer of upper lobe of left lung Chronic combined systolic and diastolic CHF (congestive heart failure) Chronic gastritis Chronic ulcer of left foot with fat layer exposed COPD (chronic obstructive pulmonary disease) COVID Dementia Diverticular disease Emphysema, unspecified Essential tremor Former smoker Gastric AVM Gastric reflux GERD (gastroesophageal reflux disease) GI bleed Hammer toe of left foot History of atrial fibrillation History of echocardiogram History of edema History of pain when walking History of stress test Hx of cancer of lung Hx of fracture of ankle Hyperlipidemia Hypertension Injury of head and neck Iron deficiency anemia due to chronic blood loss Longstanding persistent atrial fibrillation Migraine headache Multiple premature ventricular complexes NSTEMI (non-ST elevated myocardial infarction) (12/02/19) On home oxygen therapy HEBER (obstructive sleep apnea) Parkinson's disease Parkinsons Polyp of colon, adenomatous 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 Pulmonary hypertension Respiratory failure with hypoxia Right ventricular dilation, secondary Right ventricular systolic dysfunction Sepsis 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 Uses wheelchair Walker as ambulation aid Wears glasses Home Medications folic acid 1 mg tablet 1 mg PO DAILY@1200 supplement 05/06/13 [History Last Taken 07/14/20] pramipexole 0.5 mg tablet 0.5 mg PO TID parkinsons 12/04/16 [History Last Taken 10/06/20] docusate sodium 100 mg capsule 100 mg PO BID bowels 10/20/17 [History Last Taken 07/14/20] ferrous sulfate 325 mg (65 mg iron) tablet 65 mg PO DAILY supplement 02/01/19 [History Last Taken 07/14/20] cholecalciferol (vitamin D3) 125 mcg (5,000 unit) capsule 5,000 unit PO DAILY cholesterol 03/30/19 [History Last Taken 07/14/20] tamsulosin 0.4 mg capsule 0.4 mg PO QHS urinary 07/12/19 [History Last Taken 07/13/20] vitamins A,C,V-bzuk-dyglmz 2,148 mcg-113 mg-45 mg-17.4 mg tablet (PreserVision AREDS) 1 each PO BID eye health 09/03/19 [History Last Taken 07/14/20] finasteride 5 mg tablet 5 mg PO DAILY@1200 12/22/19 [History Last Taken 07/14/20] cyanocobalamin (vitamin B-12) 1,000 mcg/mL injection solution 1,000 mcg IM Q30D 03/10/20 [History Last Taken 06/30/20] fluticasone fur. 100 mcg-umeclid 62.5 mcg-vilant 25 mcg inhalat.powder (Trelegy Ellipta) 1 inh inhalation DAILY 01/01/21 [History Last Taken Unknown] cranberry 400 mg capsule 400 mg PO DAILY 03/21/21 [History Last Taken Unknown] peg 15 %-potass chl 0.17 %-propyl gly 20 %-sodium chl 0.22 % nasal gel (Rhinase) 1 ea intranasal PRN PRN DRY NOSE 03/21/21 [History Last Taken Unknown] trazodone 50 mg tablet 50 mg PO QHS 03/21/21 [History Last Taken Unknown] furosemide 40 mg tablet 40 mg PO BID #180 tabs 11/02/21 [Rx Last Taken Unknown] metoprolol succinate 100 mg tablet,extended release 24 hr 100 mg PO DAILY bp,heart #90 tabs 11/26/21 [Rx Last Taken 03/13/22 07:00] amlodipine 5 mg tablet 5 mg PO DAILY htn #90 tabs 12/31/21 [Rx Last Taken 03/13/22 07:00] spironolactone 25 mg tablet 25 mg PO DAILY #30 tabs 01/04/22 [Rx Last Taken Unknown] losartan 100 mg tablet 50 mg PO BID #90 tabs 02/25/22 [Rx Last Taken 03/13/22 07:00] gabapentin 600 mg tablet 600 mg PO QHS nerve pain 03/05/22 [History Last Taken Unknown] omeprazole 20 mg capsule,delayed release 20 mg PO DAILY 03/05/22 [History Last Taken Unknown] rosuvastatin 20 mg tablet 20 mg PO DAILY 03/05/22 [History Last Taken Unknown] ciprofloxacin HCl 500 mg tablet (Cipro) 500 mg PO BID #14 tabs 03/13/22 [Rx Last Taken Unknown] Allergy/AdvReac Type Severity Reaction Status Date / Time No Known Allergies Allergy Verified 03/15/22 10:42 Family History Sister Alcoholism Cancer Mother Arthritis Father Arthritis Brother Cancer Surgical History H/O coronary artery bypass surgery (02/14/06) History of cardioversion (12/2016) History of colonoscopy (03/22/20) History of coronary artery stent placement (12/23/06) History of esophagogastroduodenoscopy (03/22/20) History of hammer toe correction History of left heart catheterization (2016) History of lobectomy of lung History of open reduction and internal fixation (ORIF) procedure History of open reduction and internal fixation (ORIF) procedure History of right and left heart catheterization (12/04/16) History of tonsillectomy and adenoidectomy Hx of toe surgery Status post insertion of iliac artery stent (08/04/12) Status post surgical removal of neoplasm of skin SURGICAL REMOVAL LEFT GREAT TOE Social History Smoking Status: Former smoker how long ago did patient quit smokin years ago second hand exposure: No alcohol intake: current alcohol intake frequency: holidays/special occasions only Alcohol type: wine substance use type: does not use caffeine: Yes Type: coffee Number of servings: 1 what type of physical activity do you participate in: none frequency: does not exercise seatbelt use: always ROS ROS ED ROS Narrative Hematuria. Urinary retention. Constipation. Review of Systems ROS Unobtainable: Denies due to encephalopathy Constitutional Constitutional ED: Denies chills or fever(s) Eyes Eyes: Denies blurry vision ENT ENT ED: Denies ear pain Cardiovascular Cardiovascular: Denies chest pain Respiratory/Chest Respiratory/Chest: Denies cough or dyspnea Gastrointestinal Gastrointestinal: Reports abdominal pain and constipation; Denies diarrhea, melena, nausea or vomiting Genitourinary Genitourinary ED: Reports dysuria and hematuria Musculoskeletal Musculoskeletal: Denies arthralgias Integumentary Denies abscess Neurologic Neurologic: Denies headache(s) Psychiatric Psychiatric: Denies anxiety Endocrine Endocrinology: Denies polydipsia Hematologic/Lymphatic Hematologic/Lymphatic: Denies easy bleeding Allergic/Immunologic Allergic/Immunologic ED: Denies mouth swelling EXAM Physical Exam Narrative Exam Narrative: 17-year-old male vital signs stable afebrile. H EENT exam unremarkable. Moist remembers. Lungs clear to auscultation. Heart regular rhythm rate about 105 no murmur. Abdomen soft. Tender in the suprapubic region. Mildly distended. Obese. No peritoneal signs. No hernia or mass. Moving all 4 extremities. Neurologically is awake and alert with no focal motor deficits. Const Vital Signs: 03/15/22 10:44 03/15/22 10:58 03/15/22 13:21 Temperature 97.1 F L 97.1 F L Temperature Source Oral Oral Pulse Rate 105 H 105 H Respiratory Rate 17 17 Blood Pressure 180/91 H 180/91 H 153/55 H Blood Pressure Mean 120 120 87 Pulse Ox 100 100 Oxygen Delivery Method Room Air Room Air Room Air Positive well nourished, well developed and obese; Negative for cachectic, contractures or unkempt General Appearance ED: well developed and NAD; Negative for unkempt, cachectic, contractures, pallor or other Nutritional Appearance: obese; Negative for cachectic HEENT Reports moist mucous membranes; Denies dry mucous membranes normocephalic and atraumatic; Negative for trauma or tenderness Mouth ED: No dry mucous membranes Mouth: No dry mucous membranes Eyes PERRL and EOMs intact bilaterally General Eye ED: Negative for pale conjunctiva or scleral icterus Neck no lymphadenopathy, supple and no JVD General: Negative for tenderness Resp normal respiratory effort and clear to auscultation bilaterally Effort and Inspection: Negative for retractions Auscultation: Negative for rales, rhonchi or wheezes Cardio regular rhythm, S1 normal heart sound, S2 normal heart sound and no murmurs; Negative for regular rate Cardio Narrative: Heart rate 105. Rate: tachycardic Rhythm: Negative for abnormal rhythm GI no masses; Negative for non-tender or non-distended GI Narrative: Suprapubic tenderness. Inspection: abdominal distention Auscultation: normoactive bowel sounds Palpation: soft and tender; Negative for guarding, hepatomegaly or splenomegaly no CVA tenderness Bladder / Kidney Exam: No CVA tenderness Groin / Perineum Exam: Negative for edema Back/Spine no CVA tenderness General Back: Negative for CVA tenderness Cervical Spine: Negative for cervical spine tenderness Thoracic Spine / Upper Back: Negative for thoracic spinal tenderness Extremity General Extremety ED: Negative for edema or tenderness General Extremity: Negative for edema Neuro oriented x3, CN's II-XII intact bilaterally, moves all extremities and no focal motor deficits Sensorium / Orientation: alert, oriented to person, oriented to place and oriented to time; Negative for orientation impaired, confused, lethargic or stuporous Motor Exam: strength 5/5 throughout Psych mental status grossly normal Appearance: Negative for unkempt Attitude: No agitated Mood & Affect: Negative for depressed Thought Process: normal thought process Thought Content: normal thought content Attention / Concentration: Negative for other Skin General Skin Exam: Negative for jaundice or pallor Lesions: no lesions Trauma: Negative for abrasion MDM MDM MDM Narrative Medical decision making narrative: 70-year-old male status post TURP procedure. With gross hematuria and urinary retention. Savage catheter be placed. Blood counts electrolytes to be obtained. Urinalysis. KUB for constipation. Three-way Savage catheter was placed, 22 [place]. Almost 2000 cc of bloody urine returned. Patient had significant urinary retention. He has continued gross hematuria. Its been irrigated and continues. I spoke to his urologist Dr. Max Graham. Patient will be admitted to the hospitalist. Lab Data Attestation: I reviewed the patient's lab results. Lab results narrative: CBC shows a white count 23.3. H&H 12.6 and 36.8. Platelets 1 42,000. Electrolytes sodium 134 gap of 8 BUN and creatinine 29 and 1.36. UA shows greater than 100 red cells. Greater than or white cells. No bacteria no nitrites. Occult blood on the macroscopic. Nurse placed a Savage catheter and he got almost 2000 cc of blood in urine out. Labs: Laboratory Results - last 24 hr 03/15/22 03/15/22 03/15/22 11:00 11:00 11:56 WBC 23.3 H RBC 3.96 L Hgb 12.6 L Hct 36.8 L MCV 92.9 MCH 31.8 MCHC 34.2 RDW Std Deviation 48.4 H RDW Coeff of [place] 14.3 Plt Count 142 L MPV 10.9 Immature Gran % (Auto) 0.600 Neut % (Auto) 90.2 H Lymph % (Auto) 2.1 L [place] % (Auto) 6.9 Eos % (Auto) 0.0 Baso % (Auto) 0.2 Absolute Neuts (auto) 21.0 H Absolute Lymphs (auto) 0.49 L Nucleated RBC % 0 [address] Path Review October foll Sodium 134 L Potassium 4.2 Chloride 98 Carbon Dioxide 28.0 Anion Gap 8 BUN 29 H Creatinine 1.36 H Estim Creat Clear Calc 47.71 Est GFR (MDRD) Af Amer 65 Est GFR (MDRD) Non-Af 54 L BUN/Creatinine Ratio 21.3 H Glucose 165 H Calcium 9.6 Urine Color Red Urine Clarity Turbid Urine pH 7.0 Ur Specific [place] 1.010 Urine Protein 500 H Urine Glucose (UA) Normal Urine Ketones 5 H Urine Occult Blood 250 H Urine Nitrite Negative Urine Bilirubin Negative Urine Urobilinogen Normal Ur Leukocyte Esterase Negative Urine RBC > 100 SEEN Urine WBC >100 SEEN Ur Squamous Epith Cells 0 SEEN Urine Bacteria 0 SEEN Urine Mucus 0 SEEN Radiography Diagnostic Testing: Clinical Impression(s) from Imaging Studies KUB X-Ray 03/15/22 12:20 IMPRESSION: Large amount of fecal material is seen in the colon. Electronically Signed: Navdeep Pacheco MD at 12:41 EDT , Discharge Plan Triage Chief Complaint: Abd Pain ED Provider: Gibson Elizabeth Dx/Rx/DC Orders Clinical Impression: Acute urinary retention, Gross hematuria, History of transurethral resection of prostate, Leukocytosis, History of atrial fibrillation, History of Parkinson's disease Prescriptions: No Action cholecalciferol (vitamin D3) 5,000 unit capsule 5,000 unit PO DAILY finasteride 5 mg tablet 5 mg PO DAILY@1200 Trelegy Ellipta 100-62.5-25 mcg blister with device 1 inh inhalation DAILY omeprazole 20 mg capsule,delayed release(DR/EC) 20 mg PO DAILY rosuvastatin 20 mg tablet 20 mg PO DAILY spironolactone 25 mg tablet 25 mg PO DAILY Qty: 30 11RF folic acid 1 MG tablet 1 mg PO DAILY@1200 docusate sodium 100 mg capsule 100 mg PO BID Rx Instructions: noon and bedtime pramipexole 0.5 MG tablet 0.5 mg PO TID gabapentin 600 mg tablet 600 mg PO QHS ferrous sulfate 325 MG tablet 65 mg PO DAILY tamsulosin 0.4 MG capsule 0.4 mg PO QHS PreserVision AREDS 1 EACH tablet 1 each PO BID cyanocobalamin (vitamin B-12) 1,000 MCG/ML solution 1,000 mcg IM Q30D trazodone 50 mg Tablet 50 mg PO QHS cranberry 400 mg Capsule 400 mg PO DAILY Rhinase 15-0.17-20-0.22 % Gel 1 ea INTRANASAL PRN PRN (Reason: DRY NOSE) ciprofloxacin HCl [Cipro] 500 mg tablet 500 mg PO BID Qty: 14 0RF furosemide 40 mg tablet 40 mg PO BID Qty: 180 2RF metoprolol succinate 100 mg tablet extended release 24 hr 100 mg PO DAILY Qty: 90 3RF amlodipine 5 mg tablet 5 mg PO DAILY Qty: 90 3RF losartan 100 mg tablet 50 mg PO BID Qty: 90 3RF Primary Care Provider: Fany Hobson Referrals: Fany Hobson DO [Primary Care Provider] - Disposition Disposition: Acute Care Hospital [facility]
[2022-03-15 11:35] LABS: Absolute Lymphocyte Count 0.49 X10^3/uL (0.83-4.51); Basophil# 0.04 X10^3/uL; Basophil% 0.2 % (0-1); Hematocrit 36.8 % (40-54); Hemoglobin 12.6 g/dL (13.0-16.5); Lymphocyte # 0.49 X10^3/ul (0.83-4.51); Lymphocyte % 2.1 % (19-41); Mean Corp Hgb Conc 34.2 g/dL (32-36); Mean Corpuscular Hgb 31.8 pg (27.0-32.0); Mean Corpuscular Volume 92.9 fL (80-94); Mean Platelet Vol. 10.9 fl (6.2-12.0); Monocyte# 1.61 X10^3/uL; Monocyte% 6.9 % (0-10); NRBC Flagged by Analyzer 0 % (0-5); Neutrophil # 20.99 X10^3/uL (2.7-7.7); Neutrophil % 90.2 % (47-70); POSITIVE DIFFERENTIAL YES; Platelet Count 142 K/mm3 (150-450); RBC Distribution Width CV 14.3 % (11.6-14.6); RBC Distribution Width SD 48.4 fl (35.1-43.9); Red Blood Count 3.96 M/mm3 (4.6-6.2); White Blood Count 23.3 K/mm3 (4.4-11.0)
[2022-03-15 11:39] LABS: Differential Indicated SCAN CRITERIA MET
[2022-03-15 11:49] LABS: Anion Gap 8 (5-15); BUN 29 mg/dL (7-18); BUN/Creat Ratio 21.3 RATIO (10-20); Calcium,Total 9.6 mg/dL (8.5-10.1); Chloride 98 mmol/L (98-107); Creatinine, Serum 1.36 mg/dL (0.70-1.30); EST Glomerular Filtration Rate 54 mL/min (>60); Est Glom Filt Rate - Afr Amer 65 mL/min (>60); Estimated Creatinine Clearance 47.71 ml/min; Glucose 165 mg/dL (74-106); Potassium 4.2 mmol/L (3.5-5.1); Sodium Level 134 mmol/L (136-145)
[2022-03-15 12:01] LABS: Bacteria 0 SEEN /hpf (None Seen); Mucous, Urine 0 SEEN /hpf (<or=2+); Squamous Epithelial Cells - UA 0 SEEN /hpf (0-5)
[2022-03-15 12:04] LABS: Color, Urine Red (Yellow); Glucose, Dipstick Normal (Normal); Ketone-Dipstick 5 mg/dl (Negative); Leukocyte Esterase-Dipstick Negative /ul (Negative); Nitrite-Dipstick Negative (Negative); Occult Blood-Urine 250 /ul (Negative); Protein-Dipstick 500 mg/dl (Negative); Urine Bilirubin Dipstick Negative (Negative); Urine Clarity Turbid (Clear); Urine Urobilinogen Normal (Normal)
[2022-03-15 12:15] LABS: Red Blood Cells-Urine > 100 SEEN /hpf (0-5); White Blood Cells >100 SEEN /hpf (0-5)
--- NOTE | 2022-03-15 12:20 | RAD_ITS ---
STUDY: X-RAY - ABDOMEN/PELVIS REASON FOR EXAM: Male, 76 years old. Constipation. Recent surgery. TECHNIQUE: Single AP view of the abdomen / pelvis. COMPARISON: None. FINDINGS: Normal visualized lung bases. There is an abundance of fecal material throughout the colon. The visualized liver, spleen and kidneys are grossly normal in size and morphology. Surgical clips are seen in the prostate bed. Vascular calcification. There are diffuse degenerative changes of the visualized lumbar spine. RAD/Abdomen Single View IMPRESSION: Large amount of fecal material is seen in the colon. Electronically Signed: Navdeep Pacheco MD at 12:41 EDT ,
--- NOTE | 2022-03-15 14:02 | HP.PCM.HOS_ITS ---
HPI - General General Date of Admission: 03/15/22 HPI Narrative JV DURHAM, is a 76 M who presents presents to the hospital 2 days after a TURP procedure with postoperative complications. He is having significant urinary retention as well as hematuria. He was developing some abdominal pain and KUB in the ER demonstrated constipation. He does have a leukocytosis of 23,000 but he is afebrile. UA is negative for an infection so hold off antibiotics at this time. He did have a Savage placed and had about 2000 cc drain immediately, gross blood at the time of my exam this is clearing up nicely. He states that he completely feels back to normal and denies any abdominal pain after having a Savage placed. [facility] Medical History Acute kidney injury Adenocarcinoma of lung, stage 1 Alcohol dependence Ambulates with cane Amputated great toe of left foot Amputation of one or more toes Anemia Arthritis Atherosclerosis of coronary artery of [place] heart without angina pectoris Benign essential hypertension BiPAP (biphasic positive airway pressure) dependence Cancer of upper lobe of left lung Chronic combined systolic and diastolic CHF (congestive heart failure) Chronic gastritis Chronic ulcer of left foot with fat layer exposed COPD (chronic obstructive pulmonary disease) COVID Dementia Diverticular disease Emphysema, unspecified Essential tremor Former smoker Gastric AVM Gastric reflux GERD (gastroesophageal reflux disease) GI bleed Hammer toe of left foot History of atrial fibrillation History of echocardiogram History of edema History of pain when walking History of stress test Hx of cancer of lung Hx of fracture of ankle Hyperlipidemia Hypertension Injury of head and neck Iron deficiency anemia due to chronic blood loss Longstanding persistent atrial fibrillation Migraine headache Multiple premature ventricular complexes NSTEMI (non-ST elevated myocardial infarction) (12/02/19) On home oxygen therapy HEBER (obstructive sleep apnea) Parkinson's disease Parkinsons Polyp of colon, adenomatous 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 Pulmonary hypertension Respiratory failure with hypoxia Right ventricular dilation, secondary Right ventricular systolic dysfunction Sepsis 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 Uses wheelchair Walker as ambulation aid Wears glasses Home Medications folic acid 1 mg tablet 1 mg PO DAILY@1200 supplement 05/06/13 [History Last Taken 07/14/20] pramipexole 0.5 mg tablet 0.5 mg PO TID parkinsons 12/04/16 [History Last Taken 10/06/20] docusate sodium 100 mg capsule 100 mg PO BID bowels 10/20/17 [History Last Taken 07/14/20] ferrous sulfate 325 mg (65 mg iron) tablet 65 mg PO DAILY supplement 02/01/19 [History Last Taken 07/14/20] cholecalciferol (vitamin D3) 125 mcg (5,000 unit) capsule 5,000 unit PO DAILY cholesterol 03/30/19 [History Last Taken 07/14/20] tamsulosin 0.4 mg capsule 0.4 mg PO QHS urinary 07/12/19 [History Last Taken 07/13/20] vitamins A,C,H-sfcc-rfifix 2,148 mcg-113 mg-45 mg-17.4 mg tablet (PreserVision AREDS) 1 each PO BID eye health 09/03/19 [History Last Taken 07/14/20] finasteride 5 mg tablet 5 mg PO DAILY@1200 heart 12/22/19 [History Last Taken 07/14/20] cyanocobalamin (vitamin B-12) 1,000 mcg/mL injection solution 1,000 mcg IM Q30D suppliment 03/10/20 [History Last Taken 06/30/20] fluticasone fur. 100 mcg-umeclid 62.5 mcg-vilant 25 mcg inhalat.powder (Trelegy Ellipta) 1 inh inhalation DAILY dm 01/01/21 [History Last Taken Unknown] cranberry 400 mg capsule 400 mg PO DAILY vitamin 03/21/21 [History Last Taken Unknown] peg 15 %-potass chl 0.17 %-propyl gly 20 %-sodium chl 0.22 % nasal gel (Rhinase) 1 ea intranasal PRN PRN DRY NOSE 03/21/21 [History Last Taken Unknown] trazodone 50 mg tablet 50 mg PO QHS sleep 03/21/21 [History Last Taken Unknown] metoprolol succinate 100 mg tablet,extended release 24 hr 100 mg PO DAILY bp,heart #90 tabs 11/26/21 [Rx Last Taken 03/13/22 07:00] amlodipine 5 mg tablet 5 mg PO DAILY htn #90 tabs 12/31/21 [Rx Last Taken 03/13/22 07:00] gabapentin 600 mg tablet 600 mg PO QHS nerve pain 03/05/22 [History Last Taken Unknown] omeprazole 20 mg capsule,delayed release 20 mg PO DAILY gerd 03/05/22 [History Last Taken Unknown] rosuvastatin 20 mg tablet 20 mg PO DAILY cholesterol 03/05/22 [History Last Taken Unknown] ciprofloxacin HCl 500 mg tablet (Cipro) 500 mg PO BID post op prostate sx 03/15/22 [History Last Taken Unknown] furosemide 40 mg tablet 40 mg PO BID water pill 03/15/22 [History Last Taken Unknown] losartan 100 mg tablet 50 mg PO BID bp 03/15/22 [History Last Taken Unknown] spironolactone 25 mg tablet 25 mg PO DAILY heart 03/15/22 [History Last Taken Unknown] Allergy/AdvReac Type Severity Reaction Status Date / Time No Known Allergies Allergy Verified 03/15/22 10:42 Family History Sister Alcoholism Cancer Mother Arthritis Father Arthritis Brother Cancer Surgical History H/O coronary artery bypass surgery (02/14/06) History of cardioversion (12/2016) History of colonoscopy (03/22/20) History of coronary artery stent placement (12/23/06) History of esophagogastroduodenoscopy (03/22/20) History of hammer toe correction History of left heart catheterization (2016) History of lobectomy of lung History of open reduction and internal fixation (ORIF) procedure History of open reduction and internal fixation (ORIF) procedure History of right and left heart catheterization (12/04/16) History of tonsillectomy and adenoidectomy Hx of toe surgery Status post insertion of iliac artery stent (08/04/12) Status post surgical removal of neoplasm of skin SURGICAL REMOVAL LEFT GREAT TOE Social History (Updated 03/15/22 @ 14:48 by Carla Reynolds) Smoking Status: Former smoker how long ago did patient quit smokin years ago second hand exposure: No alcohol intake: current alcohol intake frequency: holidays/special occasions only Alcohol type: wine substance use type: does not use caffeine: Yes Type: coffee Number of servings: 1 what type of physical activity do you participate in: none frequency: does not exercise seatbelt use: always ROS Constitutional Constitutional: Denies chills, fatigue, fever(s) or malaise Eyes Eyes: Denies blurry vision ENT HEENT: Denies headache(s) or nasal discharge Cardiovascular Cardiovascular: Denies chest pain, dyspnea on exertion or syncope Respiratory/Chest Respiratory/Chest: Denies cough, shortness of breath at rest or shortness of breath with exertion Gastrointestinal Gastrointestinal: Reports abdominal pain; Denies constipation, diarrhea, nausea or vomiting Genitourinary Genitourinary: Denies dysuria Neurologic Neurologic: Denies focal weakness, numbness or tremor(s) Psychiatric Psychiatric: Denies anxiety or depression Vital Signs Vital Signs Vital Signs: 03/15/22 10:44 03/15/22 10:58 03/15/22 13:21 Temperature 97.1 F L 97.1 F L Temperature Source Oral Oral Pulse Rate 105 H 105 H Respiratory Rate 17 17 Blood Pressure 180/91 H 180/91 H 153/55 H Blood Pressure Mean 120 120 87 Pulse Ox 100 100 Oxygen Delivery Method Room Air Room Air Room Air Weight Weight: 301 lb 2.423 oz Body Mass Index (BMI) 43.2 Physical Exam Narrative General: Alert, Oriented x3, Cooperative, No apparent distress HEENT: Atraumatic, PERRLA, EOMI, Normocephalic Oral: Moist Mucosa Neck: Supple, No JVD Lungs: Clear to auscultation, Normal air movement, No rhonchi, No wheeze, No rales Cardiovascular: Regular rate, Regular Rhythm, Normal S1, Normal S2, No murmurs Abdomen: Soft, Non Tender, Non-Distended, No Hepato-splenomegaly Extremities: No edema, Capillary Refill Less than 3 Seconds Skin: No rashes, No breakdown Musculoskeletal: No Tenderness to Palpation of Joints or Extremities Neurological: Cranial nerves II-XII grossly intact, Motor Exam 5/5 strength throughout, Sensory exam intact to light touch and pain Psych/Mental Status: Normal Affect, Appropriate Results Lab / Micro Data Result Diagrams: 03/15/22 11:00 03/15/22 11:00 Labs: Laboratory Results - last 24 hr 03/15/22 11:00: WBC 23.3 H, RBC 3.96 L, Hgb 12.6 L, Hct 36.8 L, MCV 92.9, MCH 31.8, MCHC 34.2, RDW Std Deviation 48.4 H, RDW Coeff of Iram 14.3, Plt Count 142 L, MPV 10.9, Immature Gran % (Auto) 0.600, Neut % (Auto) 90.2 H, Lymph % (Auto) 2.1 L, [place] % (Auto) 6.9, Eos % (Auto) 0.0, Baso % (Auto) 0.2, Absolute Neuts (auto) 21.0 H, Absolute Lymphs (auto) 0.49 L, Nucleated RBC % 0, Diff Path Review October03/15/22 11:00: Sodium 134 L, Potassium 4.2, Chloride 98, Carbon Dioxide 28.0, Anion Gap 8, BUN 29 H, Creatinine 1.36 H, Estim Creat Clear Calc 47.71, Est GFR (MDRD) Af Amer 65, Est GFR (MDRD) Non-Af 54 L, BUN/Creatinine Ratio 21.3 H, Glucose 165 H, Calcium 9.6 03/15/22 11:56: Urine Color Red, Urine Clarity Turbid, Urine pH 7.0, Ur Specific [place] 1.010, Urine Protein 500 H, Urine Glucose (UA) Normal, Urine Ketones 5 H , Urine Occult Blood 250 H, Urine Nitrite Negative, Urine Bilirubin Negative, Urine Urobilinogen Normal, Ur Leukocyte Esterase Negative, Urine RBC > 100 SEEN, Urine WBC >100 SEEN, Ur Squamous Epith Cells 0 SEEN, Urine Bacteria 0 SEEN, Urine Mucus 0 SEEN Radiology Impression KUB X-Ray 03/15/22 12:20 IMPRESSION: Large amount of fecal material is seen in the colon. Electronically Signed: Navdeep Pacheco MD at 12:41 EDT Reading Location ID and State: [address] [place] [address] , Service support , Assessment & Plan Assessment/Plan (1) Urinary retention: (2) Hematuria: (3) Constipation: PLAN: Plan 1. Post urological procedure complication status post TURP/BPH ? Presents with urinary retention as well as hematuria ? Savage in place ? We will consult urology ? Continue with irrigation ? Continue with his BPH medications 2.? CAD status post CABG and stents/HTN/HLD/A. fib/chronic hypoxic respiratory failure -Blood pressures are stable and his heart rate is normal ? Continue with his baseline 3 L nasal cannula -Continue with his metoprolol and Norvasc -Continue with Crestor, Aldactone and losartan -He had been on Xarelto for his A. fib however this was discontinued due to a chronic GI bleed.? He has had multiple endoscopies without finding the source ? We will restart his Lasix in the morning -Hemoglobin is 12.6, will continue to monitor 3. DM 2/morbid obesity ? We will place him on sliding scale insulin ? Cardiac diet with 1800 tj ? Discussed lifestyle modifications 4.? GERD -Stable -Continue with PPI 5.? Neuropathy ? Stable ? Continue with gabapentin DVT: SCDs Charges/Coding Visit Charges Inpatient E&M: 28857 Init Hosp L2
--- NOTE | 2022-03-15 15:25 | CASEMGMT ---
[place] MARTINES SUPERIOR [employer] JUDGE CM to room to meet with patient for initial transition planning/care coordination assessment. FLOR[place] MARTINES introduced self and role at [facility]. Pt voices understanding and consents to assessment at this time. Pt resting in bed in no distress at this time. Pt is A/O at this time and answers all questions appropriately. Care providers, pharmacy, and demographics verified/updated at this time. PCP: Dr Hobson Specialists: Dr Graham-urology, Dr Storm-pulmonology, Dr Millan--oncology, Dr Batista-cardiology, Neurologist in [place]--pt states he forgets his name. Preferred Pharmacy: [facility] Retail Insurance: MCR, WPS Prescription Benefit: Yes Living Will/HPOA: States has LW and HPOA, who is his , Ellen LNOK: , Ellen Living Arrangements: Lives w/ in one-story home w/2 steps to enter. Pt indep w/bathing and dressing. manages home tasks and his medications. Transportation: Pt states he still can drive, but does not drive often. His provides most transportation DME: O2 thru [facility]. Pt originally stated he uses 3 l/m during the day and 4 l/m @ HS, bleed-in thru PAP. RN BOBBI placed call to [facility]. They state current orders are for 2 l/m during the day and 4 @ HS/bleed-in thru PAP. Pt made aware. He states he thinks they may have told him to increase it when using the long extension O2 tubing in his home. Pt also has RTS, medical alert button, lift chair, pulse ox, nebulizer, functioning glucometer w/supplies, built-in shower seat, and walker. Pt states no need for further DME at this time. HHC/SNF: No hx of SNF. Has had [facility] HHC in the past. Pt denies needing HHC at discharge. Pt wishes to return home and states has no concerns with going home at time of discharge. CM to follow for any increase in home oxygen needs and any further discharge planning/needs. Pt voices no further concerns/needs at this time. Advised pt to ask for CM if any further questions/concerns/needs arise. Voices understanding. PLAN: Home w/spousal support and discharge plans in place. Eyad RODRIGUEZ RN, CM
[2022-03-15 16:35] LABS: Bedside Glucose 121 mg/dL (74-106)
[2022-03-15] MEDS: Multivitamin (Healthy Eyes) Capsule 1 CAP PO (21:50)
[2022-03-15] MEDS: traZODone 50 MG Tablet PO (21:51)
[2022-03-15] MEDS: Pramipexole Di-HCl 0.5 MG Tablet PO (21:51)
[2022-03-15] MEDS: Tamsulosin HCl 0.4 MG Capsule PO (21:51)
[2022-03-15] MEDS: Atorvastatin Calcium 40 MG Tablet PO (21:51)
[2022-03-15] MEDS: Polyethylene Glycol 3350 17 GM PACKET PO (21:51)
[2022-03-15] MEDS: Senna/Docusate Sodium 1 Tablet PO (21:51)
[2022-03-15] MEDS: Losartan Potassium 50 MG Tablet PO (21:51)
[2022-03-15] MEDS: Gabapentin 600 MG Tablet PO (21:53)
[2022-03-16] VITALS (10 sets, daily range): BP systolic 104–138; BP diastolic 49–67; PULSE 63–82; RESP 17–20; TEMP 36.4–36.8; O2SAT 89–100
[2022-03-16 00:25] LABS: Bedside Glucose 111 mg/dL (74-106)
[2022-03-16 05:55] LABS: Absolute Lymphocyte Count 0.91 X10^3/uL (0.83-4.51); Absolute Neutrophil Count 12.9 X10^3/uL (2.0-7.7); Basophil# 0.03 X10^3/uL; Basophil% 0.2 % (0-1); Eosinophil# 0.19 X10^3/uL; Eosinophils% 1.2 % (0-5); Hematocrit 32.7 % (40-54); Hemoglobin 10.8 g/dL (13.0-16.5); Lymphocyte # 0.91 X10^3/ul (0.83-4.51); Lymphocyte % 5.8 % (19-41); Mean Corpuscular Hgb 30.7 pg (27.0-32.0); Mean Corpuscular Volume 92.9 fL (80-94); Mean Platelet Vol. 10.9 fl (6.2-12.0); Monocyte# 1.66 X10^3/uL; Monocyte% 10.5 % (0-10); NRBC Flagged by Analyzer 0 % (0-5); Neutrophil % 81.8 % (47-70); POSITIVE DIFFERENTIAL YES; Platelet Count 137 K/mm3 (150-450); RBC Distribution Width CV 14.5 % (11.6-14.6); RBC Distribution Width SD 49.1 fl (35.1-43.9); Red Blood Count 3.52 M/mm3 (4.6-6.2); White Blood Count 15.8 K/mm3 (4.4-11.0)
[2022-03-16 06:02] LABS: Differential Indicated SCAN CRITERIA MET
[2022-03-16 06:18] LABS: Anion Gap 7 (5-15); BUN 28 mg/dL (7-18); BUN/Creat Ratio 18.5 RATIO (10-20); Chloride 100 mmol/L (98-107); Creatinine, Serum 1.51 mg/dL (0.70-1.30); EST Glomerular Filtration Rate 48 mL/min (>60); Est Glom Filt Rate - Afr Amer 58 mL/min (>60); Estimated Creatinine Clearance 42.97 ml/min; Glucose 118 mg/dL (74-106); Sodium Level 139 mmol/L (136-145)
[2022-03-16 06:23] LABS: Differential Comment SCANNED
[2022-03-16] MEDS: Pramipexole Di-HCl 0.5 MG Tablet PO ×2 (06:27→21:38)
[2022-03-16 07:00] LABS: Bedside Glucose 139 mg/dL (74-106)
[2022-03-16] MEDS: Ipratropium/Albuterol Sulfate 3 ML AMPUL.NEB INHALATION ×3 (07:17→19:10)
[2022-03-16] MEDS: Budesonide Respules 0.5 MG/2 ML AMPUL.NEB. INHALATION ×2 (07:17→19:10)
--- NOTE | 2022-03-16 08:13 | PCM.CONS.B ---
Consult Date of Consult: 03/16/22 Reason for Consult Status post TURP he returned to the hospital and retention of urine Kalma the Savage catheter is in place and the urine is clear on irrigation we will have the nurses manually irrigate we will watch her for another 24 hours I think possible home tomorrow with a catheter if it stays clear.
[2022-03-16] MEDS: Polyethylene Glycol 3350 17 GM PACKET PO ×2 (08:14→21:39)
[2022-03-16] MEDS: Multivitamin (Healthy Eyes) Capsule 1 CAP PO ×2 (08:14→21:38)
[2022-03-16] MEDS: Senna/Docusate Sodium 1 Tablet PO ×2 (08:14→21:38)
[2022-03-16] MEDS: Pantoprazole Sodium 20 MG Tablet PO (08:14)
[2022-03-16] MEDS: Losartan Potassium 50 MG Tablet PO ×2 (08:15→21:39)
--- NOTE | 2022-03-16 11:34 | PN.HOSP_ITS ---
Subjective Subjective Doing well, no issues overnight, feels much better now that the Savage is in place it still red-tinged but looks much better than yesterday. Objective Data Objective Data Vital Signs: Vital Signs Temp Pulse Resp BP Pulse Ox O2 Del Method O2 Flow Rate 97.5 F L 71 18 119/49 L 95 Nasal Cannula 2 03/16/22 08:11 03/16/22 08:11 03/16/22 08:11 03/16/22 08:11 03/16/22 08:11 03/16/22 08:22 03/16/22 08:22 Oxygen Flow Rate (L/min) 2 Oxygen Delivery Method Nasal Cannula Weight: 296 lb 1 oz Body Mass Index (BMI) 42.5 Intake & Output: Intake and Output for Last 24 Hours 03/15/22 03/16/22 03/17/22 03:59 03:59 03:59 Intake Total 500 / 500 Output Total 3000 / 3000 Balance -2500 / -2500 Lab / Micro Data Result Diagrams: 03/16/22 05:20 03/16/22 05:20 Labs: Laboratory Results - last 24 hr 03/15/22 11:00: WBC 23.3 H, RBC 3.96 L, Hgb 12.6 L, Hct 36.8 L, MCV 92.9, MCH 31.8, MCHC 34.2, RDW Std Deviation 48.4 H, RDW Coeff of Iram 14.3, Plt Count 142 L, MPV 10.9, Immature Gran % (Auto) 0.600, Neut % (Auto) 90.2 H, Lymph % (Auto) 2.1 L, [place] % (Auto) 6.9, Eos % (Auto) 0.0, Baso % (Auto) 0.2, Absolute Neuts (auto) 21.0 H, Absolute Lymphs (auto) 0.49 L, Nucleated RBC % 0, Diff Path Review October03/15/22 11:00: Sodium 134 L, Potassium 4.2, Chloride 98, Carbon Dioxide 28.0, Anion Gap 8, BUN 29 H, Creatinine 1.36 H, Estim Creat Clear Calc 47.71, Est GFR (MDRD) Af Amer 65, Est GFR (MDRD) Non-Af 54 L, BUN/Creatinine Ratio 21.3 H, Glucose 165 H, Calcium 9.6 03/15/22 11:56: Urine Color Red, Urine Clarity Turbid, Urine pH 7.0, Ur Specific [place] 1.010, Urine Protein 500 H, Urine Glucose (UA) Normal, Urine Ketones 5 H , Urine Occult Blood 250 H, Urine Nitrite Negative, Urine Bilirubin Negative, Urine Urobilinogen Normal, Ur Leukocyte Esterase Negative, Urine RBC > 100 SEEN, Urine WBC >100 SEEN, Ur Squamous Epith Cells 0 SEEN, Urine Bacteria 0 SEEN, Urine Mucus 0 SEEN 03/15/22 16:06: POC Glucose 121 H 03/15/22 21:50: POC Glucose 111 H 03/16/22 05:20: WBC 15.8 H, RBC 3.52 L, Hgb 10.8 L, Hct 32.7 L, MCV 92.9, MCH 30.7, MCHC 33.0, RDW Std Deviation 49.1 H, RDW Coeff of Iram 14.5, Plt Count 137 L, MPV 10.9, Immature Gran % (Auto) 0.500, Neut % (Auto) 81.8 H, Lymph % (Auto) 5.8 L, [place] % (Auto) 10.5 H, Eos % (Auto) 1.2, Baso % (Auto) 0.2, Absolute Neuts (auto) 12.9 H, Absolute Lymphs (auto) 0.91, Nucleated RBC % 0, Differential Comment SCANNED, Diff Path Review October03/16/22 05:20: Sodium 139, Potassium 4.0, Chloride 100, Carbon Dioxide 32.0, Anion Gap 7, BUN 28 H, Creatinine 1.51 H, Estim Creat Clear Calc 42.97, Est GFR (MDRD) Af Amer 58 L, Est GFR (MDRD) Non-Af 48 L, BUN/Creatinine Ratio 18.5, Glucose 118 H, Calcium 9.0 03/16/22 06:24: POC Glucose 139 H Radiography Diagnostic Testing: Radiology Impression KUB X-Ray 03/15/22 12:20 IMPRESSION: Large amount of fecal material is seen in the colon. Electronically Signed: Navdeep Pacheco MD at 12:41 EDT , Physical Exam Narrative General: Alert, Oriented x3, Cooperative, No apparent distress HEENT: Atraumatic, PERRLA, EOMI, Normocephalic Oral: Moist Mucosa Neck: Supple, No JVD Lungs: Clear to auscultation, Normal air movement, No rhonchi, No wheeze, No rales Cardiovascular: Regular rate, Regular Rhythm, Normal S1, Normal S2, No murmurs Abdomen: Soft, Non Tender, Non-Distended, No Hepato-splenomegaly Extremities: No edema, Capillary Refill Less than 3 Seconds Skin: No rashes, No breakdown Musculoskeletal: No Tenderness to Palpation of Joints or Extremities Neurological: Cranial nerves II-XII grossly intact, Motor Exam 5/5 strength throughout, Sensory exam intact to light touch and pain Psych/Mental Status: Normal Affect, Appropriate Assessment & Plan Assessment/Plan (1) Urinary retention: (2) Hematuria: (3) Constipation: PLAN: Plan 1. Post urological procedure complication status post TURP/BPH ? Presents with urinary retention as well as hematuria ? Savage in place ? We will consult urology ? Continue with irrigation ? Continue with his BPH medications 2.? CAD status post CABG and stents/HTN/HLD/A. fib/chronic hypoxic respiratory failure -Blood pressures are stable and his heart rate is normal ? Continue with his baseline 3 L nasal cannula -Continue with his metoprolol and Norvasc -Continue with Crestor, Aldactone and losartan -He had been on Xarelto for his A. fib however this was discontinued due to a chronic GI bleed.? He has had multiple endoscopies without finding the source ? We will restart his Lasix in the morning, will hold off on restarting today whitt s had a slight bump in his creatinine -Hemoglobin is 12.6, will continue to monitor 3. DM 2/morbid obesity ? We will place him on sliding scale insulin ? Cardiac diet with 1800 tj ? Discussed lifestyle modifications 4.? GERD -Stable -Continue with PPI 5.? Neuropathy ? Stable ? Continue with gabapentin DVT: SCDs Charges/Coding Visit Charges Inpatient E&M: 64105 Subs Hosp L2
[2022-03-16] MEDS: Finasteride 5 MG Tablet PO (11:55)
[2022-03-16] MEDS: Ferrous Sulfate 325 MG Tablet PO (11:55)
[2022-03-16 12:16] LABS: Bedside Glucose 108 mg/dL (74-106)
[2022-03-16] MEDS: Spironolactone 25 MG Tablet PO (15:30)
[2022-03-16 17:21] LABS: Bedside Glucose 131 mg/dL (74-106)
[2022-03-16] MEDS: Tamsulosin HCl 0.4 MG Capsule PO (21:38)
[2022-03-16] MEDS: traZODone 50 MG Tablet PO (21:38)
[2022-03-16] MEDS: Atorvastatin Calcium 40 MG Tablet PO (21:38)
[2022-03-16] MEDS: Metoprolol(XL)Succ 100 MG Tablet PO (21:40)
[2022-03-16] MEDS: amLODIPine 5 MG Tablet PO (21:40)
[2022-03-16] MEDS: Gabapentin 600 MG Tablet PO (21:43)
[2022-03-16 22:25] LABS: Bedside Glucose 135 mg/dL (74-106)
[2022-03-17 02:50] VITALS: BP 128/58; PULSE 71; RESP 18; TEMP 36.8; O2SAT 97
[2022-03-17] MEDS: Pramipexole Di-HCl 0.5 MG Tablet PO (04:51)
[2022-03-17 05:19] LABS: Absolute Neutrophil Count 8.5 X10^3/uL (2.0-7.7); Basophil# 0.04 X10^3/uL; Basophil% 0.4 % (0-1); Eosinophil# 0.27 X10^3/uL; Eosinophils% 2.5 % (0-5); Hematocrit 33.2 % (40-54); Hemoglobin 11.1 g/dL (13.0-16.5); Lymphocyte % 10.1 % (19-41); Mean Corp Hgb Conc 33.4 g/dL (32-36); Mean Corpuscular Hgb 31.1 pg (27.0-32.0); Mean Platelet Vol. 10.5 fl (6.2-12.0); Monocyte# 0.93 X10^3/uL; Monocyte% 8.5 % (0-10); NRBC Flagged by Analyzer 0 % (0-5); Neutrophil # 8.53 X10^3/uL (2.7-7.7); Platelet Count 145 K/mm3 (150-450); RBC Distribution Width CV 14.3 % (11.6-14.6); RBC Distribution Width SD 48.5 fl (35.1-43.9); Red Blood Count 3.57 M/mm3 (4.6-6.2); White Blood Count 10.9 K/mm3 (4.4-11.0)
[2022-03-17 05:40] LABS: Anion Gap 7 (5-15); BUN 32 mg/dL (7-18); BUN/Creat Ratio 22.4 RATIO (10-20); Calcium,Total 9.2 mg/dL (8.5-10.1); Chloride 100 mmol/L (98-107); Creatinine, Serum 1.43 mg/dL (0.70-1.30); EST Glomerular Filtration Rate 51 mL/min (>60); Est Glom Filt Rate - Afr Amer 62 mL/min (>60); Estimated Creatinine Clearance 45.38 ml/min; Glucose 120 mg/dL (74-106); Sodium Level 137 mmol/L (136-145)
[2022-03-17 07:06] LABS: Bedside Glucose 115 mg/dL (74-106)
[2022-03-17 07:26] VITALS: PULSE 63; RESP 18; O2SAT 96
[2022-03-17] MEDS: Ipratropium/Albuterol Sulfate 3 ML AMPUL.NEB INHALATION (07:26)
[2022-03-17] MEDS: Budesonide Respules 0.5 MG/2 ML AMPUL.NEB. INHALATION (07:26)
--- NOTE | 2022-03-17 08:06 | PCM.CONS.B ---
Consult Date of Consult: 03/17/22 Reason for Consult Status post TURP urine is clear today DC Savage as long as he can urinate okay he can go home without a catheter nurse will check a postvoid residual at the PVR is high how to go home with a catheter.
[2022-03-17 08:50] VITALS: BP 121/52; PULSE 64; RESP 20; TEMP 36.5; O2SAT 98
[2022-03-17] MEDS: Multivitamin (Healthy Eyes) Capsule 1 CAP PO (08:59)
[2022-03-17] MEDS: Pantoprazole Sodium 20 MG Tablet PO (08:59)
[2022-03-17] MEDS: Spironolactone 25 MG Tablet PO (08:59)
[2022-03-17] MEDS: Losartan Potassium 50 MG Tablet PO (08:59)
[2022-03-17] MEDS: Polyethylene Glycol 3350 17 GM PACKET PO (08:59)
[2022-03-17] MEDS: Senna/Docusate Sodium 1 Tablet PO (08:59)
--- NOTE | 2022-03-17 09:39 | DCINST_ITS ---
Discharge Instructions Diet Discharge Diet: Low fat / Low cholesterol and Carb Control Diet Dressing / Incision Call your doctor if you observe: Fever of 101 or Higher, Shortness of breath, Dizziness, Fainting spells, Swelling in the ankles, Chest pain and Increased palpitations (irregular heartbeat) Follow Up Care Test Results: Test results from this visit will be discussed in further detail at your follow- up appointment, if applicable. Discharge Plan Admission Admit Date/Time: 03/15/22 13:58 Attending Provider: Fermin Burdick Primary Care Provider: Fany Hobson Consulting Providers: Zander Graham Discharge Orders/Prescriptions Prescriptions: Continued cholecalciferol (vitamin D3) 5,000 unit capsule 5,000 unit PO DAILY finasteride 5 mg tablet 5 mg PO DAILY@1200 Trelegy Ellipta 100-62.5-25 mcg blister with device 1 inh inhalation DAILY omeprazole 20 mg capsule,delayed release(DR/EC) 20 mg PO DAILY rosuvastatin 20 mg tablet 20 mg PO DAILY folic acid 1 MG tablet 1 mg PO DAILY@1200 docusate sodium 100 mg capsule 100 mg PO BID Rx Instructions: noon and bedtime pramipexole 0.5 MG tablet 0.5 mg PO TID gabapentin 600 mg tablet 600 mg PO QHS ferrous sulfate 325 MG tablet 65 mg PO DAILY tamsulosin 0.4 MG capsule 0.4 mg PO QHS PreserVision AREDS 1 EACH tablet 1 each PO BID cyanocobalamin (vitamin B-12) 1,000 MCG/ML solution 1,000 mcg IM Q30D trazodone 50 mg Tablet 50 mg PO QHS cranberry 400 mg Capsule 400 mg PO DAILY Rhinase 15-0.17-20-0.22 % Gel 1 ea INTRANASAL PRN PRN (Reason: DRY NOSE) furosemide 40 mg tablet 40 mg PO BID ciprofloxacin HCl [Cipro] 500 mg tablet 500 mg PO BID spironolactone 25 mg tablet 25 mg PO DAILY losartan 100 mg tablet 50 mg PO BID metoprolol succinate 100 mg tablet extended release 24 hr 100 mg PO DAILY Qty: 90 3RF amlodipine 5 mg tablet 5 mg PO DAILY Qty: 90 3RF Referrals / Follow Up: Fany Hobson DO [Primary Care Provider] - Within 1 Week Zander Graham MD [Med Staff - Active Staff] - Disposition Disposition (needs filled in before D/C Order can be placed): Home, Self Care
--- NOTE | 2022-03-17 09:45 | DS.PCM_ITS ---
Providers Date of Admission: 03/15/22 Primary Care Physician: Dr. Fany Hobson, DO Consultations 03/15/22 14:44 Consult: Urology Routine Consulting Provider: Zander Graham Reason for Consult: Post TURP complications EMERGENT Consult: No MD Notified: Yes Date Notified: 03/15/22 Time Notified: 14:07 Method of Notification: ED Physician Initiated Reason For Visit: UROLOGICAL POST-OP COMPLICATION Diagnosis Discharge Diagnosis (1) Urinary retention: Status: Acute Code(s): R33.9 - Retention of urine, unspecified (2) Hematuria: Status: Acute Code(s): R31.9 - Hematuria, unspecified (3) Constipation: Status: Acute Code(s): K59.00 - Constipation, unspecified Plan 1. Post urological procedure complication status post TURP/BPH ? Presents with urinary retention as well as hematuria ? Savage in place ? We will consult urology ? Continue with irrigation ? Continue with his BPH medications 2.? CAD status post CABG and stents/HTN/HLD/A. fib/chronic hypoxic respiratory failure -Blood pressures are stable and his heart rate is normal ? Continue with his baseline 3 L nasal cannula -Continue with his metoprolol and Norvasc -Continue with Crestor, Aldactone and losartan -He had been on Xarelto for his A. fib however this was discontinued due to a chronic GI bleed.? He has had multiple endoscopies without finding the source ? We will restart his Lasix in the morning, will hold off on restarting today whitt s had a slight bump in his creatinine -Hemoglobin is 12.6, will continue to monitor 3. DM 2/morbid obesity ? We will place him on sliding scale insulin ? Cardiac diet with 1800 tj ? Discussed lifestyle modifications 4.? GERD -Stable -Continue with PPI 5.? Neuropathy ? Stable ? Continue with gabapentin DVT: SCDs Medications at Discharge Home Medications folic acid 1 mg tablet 1 mg PO DAILY@1200 supplement 05/06/13 pramipexole 0.5 mg tablet 0.5 mg PO TID parkinsons 12/04/16 docusate sodium 100 mg capsule 100 mg PO BID bowels 10/20/17 ferrous sulfate 325 mg (65 mg iron) tablet 65 mg PO DAILY supplement 02/01/19 cholecalciferol (vitamin D3) 125 mcg (5,000 unit) capsule 5,000 unit PO DAILY cholesterol 03/30/19 tamsulosin 0.4 mg capsule 0.4 mg PO QHS urinary 07/12/19 vitamins A,C,J-aydn-xslkya 2,148 mcg-113 mg-45 mg-17.4 mg tablet (PreserVision AREDS) 1 each PO BID eye health 09/03/19 finasteride 5 mg tablet 5 mg PO DAILY@1200 heart 12/22/19 cyanocobalamin (vitamin B-12) 1,000 mcg/mL injection solution 1,000 mcg IM Q30D suppliment 03/10/20 fluticasone fur. 100 mcg-umeclid 62.5 mcg-vilant 25 mcg inhalat.powder (Trelegy Ellipta) 1 inh inhalation DAILY dm 01/01/21 cranberry 400 mg capsule 400 mg PO DAILY vitamin 03/21/21 peg 15 %-potass chl 0.17 %-propyl gly 20 %-sodium chl 0.22 % nasal gel (Rhinase) 1 ea intranasal PRN PRN DRY NOSE 03/21/21 trazodone 50 mg tablet 50 mg PO QHS sleep 03/21/21 metoprolol succinate 100 mg tablet,extended release 24 hr 100 mg PO DAILY bp,heart #90 tabs 11/26/21 amlodipine 5 mg tablet 5 mg PO DAILY htn #90 tabs 12/31/21 gabapentin 600 mg tablet 600 mg PO QHS nerve pain 03/05/22 omeprazole 20 mg capsule,delayed release 20 mg PO DAILY gerd 03/05/22 rosuvastatin 20 mg tablet 20 mg PO DAILY cholesterol 03/05/22 ciprofloxacin HCl 500 mg tablet (Cipro) 500 mg PO BID post op prostate sx 03/15/22 furosemide 40 mg tablet 40 mg PO BID water pill 03/15/22 losartan 100 mg tablet 50 mg PO BID bp 03/15/22 spironolactone 25 mg tablet 25 mg PO DAILY heart 03/15/22 Hospital Course Operations None Procedures None Summary of Care Provided Minutes Spent on Discharge: 38 Hospital Course: Per HPI: JV DURHAM, is a 76 M who presents presents to the hospital 2 days after a TURP procedure with postoperative complications.? He is having significant urinary retention as well as hematuria.? He was developing some abdominal pain and KUB in the ER demonstrated constipation.? He does have a leukocytosis of 23,000 but he is afebrile.? UA is negative for an infection so hold off antibiotics at this time.? He did have a Savage placed and had about 2000 cc drain immediately, gross blood at the time of my exam this is clearing up nicely.? He states that he completely feels back to normal and denies any abdominal pain after having a Savage placed. Hospital Course: 1.? Post urological procedure complication status post TURP/BPH ? Presents with urinary retention as well as hematuria ? Savage was removed this morning, regardless of outcome he will be discharged today. If he can urinate great if not a Savage will be placed and he will need to follow-up with urology as an outpatient ? I discussed with him the plan for discharge today and he expressed under standing of the risk benefits of going home and wants to go home today. 2.? CAD status post CABG and stents/HTN/HLD/A. fib/chronic hypoxic respiratory failure -Blood pressures are stable and his heart rate is normal ? Continue with his baseline 3 L nasal cannula -Continue with his metoprolol and Norvasc -Continue with Crestor, Aldactone and losartan -He had been on Xarelto for his A. fib however this was discontinued due to a chronic GI bleed.? He has had multiple endoscopies without finding the source ? We will restart his Lasix on discharge -Hemoglobin is 12.6, will continue to monitor 3.? DM 2/morbid obesity ? We will place him on sliding scale insulin ? Cardiac diet with 1800 tj ? Discussed lifestyle modifications 4.? GERD -Stable -Continue with PPI 5.? Neuropathy ? Stable ? Continue with gabapentin Physical Exam Narrative General: Alert, Oriented x3, Cooperative, No apparent distress HEENT: Atraumatic, PERRLA, EOMI, Normocephalic Oral: Moist Mucosa Neck: Supple, No JVD Lungs: Clear to auscultation, Normal air movement, No rhonchi, No wheeze, No rales Cardiovascular: Regular rate, Regular Rhythm, Normal S1, Normal S2, No murmurs Abdomen: Soft, Non Tender, Non-Distended, No Hepato-splenomegaly Extremities: No edema, Capillary Refill Less than 3 Seconds Skin: No rashes, No breakdown Musculoskeletal: No Tenderness to Palpation of Joints or Extremities Neurological: Cranial nerves II-XII grossly intact, Motor Exam 5/5 strength throughout, Sensory exam intact to light touch and pain Psych/Mental Status: Normal Affect, Appropriate Weight / BMI Weight Weight: 296 lb 1 oz Body Mass Index (BMI) 42.5 ABG / Lab / Microbiology Data Result Diagrams: 03/17/22 04:55 03/17/22 04:55 Laboratory: Laboratory Results - last 24 hr 03/16/22 11:53: POC Glucose 108 H 03/16/22 16:58: POC Glucose 131 H 03/16/22 21:31: POC Glucose 135 H 03/17/22 04:55: WBC 10.9, RBC 3.57 L, Hgb 11.1 L, Hct 33.2 L, MCV 93.0, MCH 31.1, MCHC 33.4, RDW Std Deviation 48.5 H, RDW Coeff of Iram 14.3, Plt Count 145 L, MPV 10.5, Immature Gran % (Auto) 0.500, Neut % (Auto) 78.0 H, Lymph % (Auto) 10.1 L, [place] % (Auto) 8.5, Eos % (Auto) 2.5, Baso % (Auto) 0.4, Absolute Neuts (auto) 8.5 H, Absolute Lymphs (auto) 1.10, Nucleated RBC % 0 03/17/22 04:55: Sodium 137, Potassium 4.0, Chloride 100, Carbon Dioxide 30.0, Anion Gap 7, BUN 32 H, Creatinine 1.43 H, Estim Creat Clear Calc 45.38, Est GFR (MDRD) Af Amer 62, Est GFR (MDRD) Non-Af 51 L, BUN/Creatinine Ratio 22.4 H, Glucose 120 H, Calcium 9.2 03/17/22 06:36: POC Glucose 115 H D/C Instructions Discharge Diet: Low fat / Low cholesterol and Carb Control Diet Call your doctor if you observe: Fever of 101 or Higher, Shortness of breath, Dizziness, Fainting spells, Swelling in the ankles, Chest pain and Increased palpitations (irregular heartbeat) Meaningful Use Info Meaningful Use Diagnoses (Choose all that apply): None applicable Discharge Plan Admission Admit Date/Time: 03/15/22 13:58 Attending Provider: Fermin Burdick Primary Care Provider: Fany Hobson Consulting Providers: Zander Graham Discharge Orders/Prescriptions Prescriptions: Continued cholecalciferol (vitamin D3) 5,000 unit capsule 5,000 unit PO DAILY finasteride 5 mg tablet 5 mg PO DAILY@1200 Trelegy Ellipta 100-62.5-25 mcg blister with device 1 inh inhalation DAILY omeprazole 20 mg capsule,delayed release(DR/EC) 20 mg PO DAILY rosuvastatin 20 mg tablet 20 mg PO DAILY folic acid 1 MG tablet 1 mg PO DAILY@1200 docusate sodium 100 mg capsule 100 mg PO BID Rx Instructions: noon and bedtime pramipexole 0.5 MG tablet 0.5 mg PO TID gabapentin 600 mg tablet 600 mg PO QHS ferrous sulfate 325 MG tablet 65 mg PO DAILY tamsulosin 0.4 MG capsule 0.4 mg PO QHS PreserVision AREDS 1 EACH tablet 1 each PO BID cyanocobalamin (vitamin B-12) 1,000 MCG/ML solution 1,000 mcg IM Q30D trazodone 50 mg Tablet 50 mg PO QHS cranberry 400 mg Capsule 400 mg PO DAILY Rhinase 15-0.17-20-0.22 % Gel 1 ea INTRANASAL PRN PRN (Reason: DRY NOSE) furosemide 40 mg tablet 40 mg PO BID ciprofloxacin HCl [Cipro] 500 mg tablet 500 mg PO BID spironolactone 25 mg tablet 25 mg PO DAILY losartan 100 mg tablet 50 mg PO BID metoprolol succinate 100 mg tablet extended release 24 hr 100 mg PO DAILY Qty: 90 3RF amlodipine 5 mg tablet 5 mg PO DAILY Qty: 90 3RF Referrals / Follow Up: Fany Hobson DO [Primary Care Provider] - Within 1 Week Zander Graham MD [Med Staff - Active Staff] - Disposition Disposition (needs filled in before D/C Order can be placed): Home, Self Care Charges/Coding Visit Charges Inpatient E&M: 43496 Disch Hosp
[2022-03-17 12:00] LABS: Bedside Glucose 154 mg/dL (74-106)
[2022-03-17] MEDS: FLU VACC QS2022-23(6MOS UP)/PF 60 MCG/0.5 ML SYRINGE IM (12:20)
[2022-03-17] MEDS: Finasteride 5 MG Tablet PO (12:21)
[2022-03-17] MEDS: Ferrous Sulfate 325 MG Tablet PO (12:21)
[2022-03-17] MEDS: 0.9% Saline Lock 10 ML Syringe IV (13:30)
[2022-03-18 13:26] LABS: Pathologist Review Reviewed
[2022-03-18 13:33] LABS: Pathologist Review Reviewed
== END 2022-03-17 13:50 | disposition home or self-care (01) | DRG 666 ==
LOC: ED 14:01 → MS3 14:12
PROVIDERS: Admitting Provider Family Medicine; Emergency Provider Emergency Medicine; PCP Internal Medicine; Visit Provider Family Medicine
DX: N99.89 Other postprocedural complications and disorders of genitourinary system (principal); J96.11 Chronic respiratory failure with hypoxia; I48.11 Longstanding persistent atrial fibrillation; N13.8 Other obstructive and reflux uropathy; I50.42 Chronic combined systolic (congestive) and diastolic (congestive) heart failure; N30.00 Acute cystitis without hematuria; E11.40 Type 2 diabetes mellitus with diabetic neuropathy, unspecified; D50.0 Iron deficiency anemia secondary to blood loss (chronic); G20 Parkinson's disease; I11.0 Hypertensive heart disease with heart failure; J43.9 Emphysema, unspecified; Z89.422 Acquired absence of other left toe(s); E78.5 Hyperlipidemia, unspecified; I25.10 Atherosclerotic heart disease of native coronary artery without angina pectoris; K21.9 Gastro-esophageal reflux disease without esophagitis; K59.00 Constipation, unspecified; I25.2 Old myocardial infarction; G47.33 Obstructive sleep apnea (adult) (pediatric); M19.90 Unspecified osteoarthritis, unspecified site; Z86.16 Personal history of COVID-19; R33.9 Retention of urine, unspecified; R31.9 Hematuria, unspecified; Z87.891 Personal history of nicotine dependence; Y83.6 Removal of other organ (partial) (total) as the cause of abnormal reaction of the patient, or of later complication, without mention of misadventure at the time of the procedure; Z79.899 Other long term (current) drug therapy; K55.20 Angiodysplasia of colon without hemorrhage; N40.1 Benign prostatic hyperplasia with lower urinary tract symptoms; R39.14 Feeling of incomplete bladder emptying; Z79.82 Long term (current) use of aspirin; Z79.84 Long term (current) use of oral hypoglycemic drugs; Z79.01 Long term (current) use of anticoagulants; Z99.81 Dependence on supplemental oxygen; Z23 Encounter for immunization
CPT/HCPCS: 36415; 36591; 51702; 74018; 80048; 81001; 82962; 85025; 88305; 94640; 94762; 96360; 96361; 99218; 99251; 99285; G0008; J7120; 90686; A4216; G0378; G0463; J2405

== ENCOUNTER 2022-05-16 19:01 | Emergency (ER) | payer MEDICARE, OTHER, SELFPAY ==
[2022-05-16 19:03] VITALS: BP 132/95; PULSE 105; RESP 18; TEMP 37.8; O2SAT 94; BMI 40.8
--- NOTE | 2022-05-16 20:01 | EX.ED.DYSGE1 ---
HPI History of Present Illness Chief Complaint: Complaint Informant: patient Narrative Narrative: Patient's primary concern is that he has a UTI. He has been urinating quite frequently for the last few days. He said 2 days where he gets fevers and chills. No myalgias. He states sometimes he coughs and is short of breath but he is can tell that is different from his normal. He has chronic pulmonary disease and is on oxygen at 2 L. This is not changed. No chest pain. No abdominal pain. He states sometimes he is gotten a little bit queasy but he is never really felt nauseated to his thoughts. He has had no problems with eating drinking. No diarrhea. He does have a history of occasional UTIs. He had a transurethral resection of the prostate by Dr. Graham earlier this year. No blood in the urine. Nothing really makes his symptoms better or worse. [facility] Medical History Acute kidney injury Adenocarcinoma of lung, stage 1 Adrenal mass Alcohol dependence Ambulates with cane Amputated great toe of left foot Amputation of one or more toes Anemia Arthritis Atherosclerosis of coronary artery of [place] heart without angina pectoris Benign essential hypertension BiPAP (biphasic positive airway pressure) dependence Cancer of upper lobe of left lung Chronic combined systolic and diastolic CHF (congestive heart failure) Chronic gastritis Chronic ulcer of left foot with fat layer exposed COPD (chronic obstructive pulmonary disease) COVID Dementia Diverticular disease Emphysema, unspecified Essential tremor Former smoker Gastric AVM Gastric reflux GERD (gastroesophageal reflux disease) GI bleed Hammer toe of left foot History of atrial fibrillation History of atrial fibrillation History of echocardiogram History of edema History of pain when walking History of Parkinson's disease History of stress test Hx of cancer of lung Hx of fracture of ankle Hyperlipidemia Hypertension Injury of head and neck Iron deficiency anemia due to chronic blood loss Longstanding persistent atrial fibrillation Migraine headache Multiple premature ventricular complexes NSTEMI (non-ST elevated myocardial infarction) (12/02/19) On home oxygen therapy HEBER (obstructive sleep apnea) Parkinson's disease Parkinsons Polyp of colon, adenomatous 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 Pulmonary hypertension Respiratory failure with hypoxia Right ventricular dilation, secondary Right ventricular systolic dysfunction Sepsis 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 Uses wheelchair Walker as ambulation aid Wears glasses Home Medications folic acid 1 mg tablet 1 mg PO DAILY@1200 supplement 05/06/13 [History Last Taken 07/14/20] pramipexole 0.5 mg tablet 0.5 mg PO TID parkinsons 12/04/16 [History Last Taken 10/06/20] docusate sodium 100 mg capsule 100 mg PO BID bowels 10/20/17 [History Last Taken 07/14/20] ferrous sulfate 325 mg (65 mg iron) tablet 65 mg PO DAILY supplement 02/01/19 [History Last Taken 07/14/20] cholecalciferol (vitamin D3) 125 mcg (5,000 unit) capsule 5,000 unit PO DAILY cholesterol 03/30/19 [History Last Taken 07/14/20] tamsulosin 0.4 mg capsule 0.4 mg PO QHS urinary 07/12/19 [History Last Taken 07/13/20] finasteride 5 mg tablet 5 mg PO DAILY@1200 heart 12/22/19 [History Last Taken 07/14/20] cyanocobalamin (vitamin B-12) 1,000 mcg/mL injection solution 1,000 mcg IM Q30D suppliment 03/10/20 [History Last Taken 06/30/20] fluticasone fur. 100 mcg-umeclid 62.5 mcg-vilant 25 mcg inhalat.powder (Trelegy Ellipta) 1 inh inhalation DAILY dm 01/01/21 [History Last Taken Unknown] peg 15 %-potass chl 0.17 %-propyl gly 20 %-sodium chl 0.22 % nasal gel (Rhinase) 1 ea intranasal PRN PRN DRY NOSE 03/21/21 [History Last Taken Unknown] trazodone 50 mg tablet 50 mg PO QHS sleep 03/21/21 [History Last Taken Unknown] metoprolol succinate 100 mg tablet,extended release 24 hr 100 mg PO DAILY bp,heart #90 tabs 11/26/21 [Rx Last Taken 03/13/22 07:00] amlodipine 5 mg tablet 5 mg PO DAILY htn #90 tabs 12/31/21 [Rx Last Taken 03/13/22 07:00] omeprazole 20 mg capsule,delayed release 20 mg PO DAILY gerd 03/05/22 [History Last Taken Unknown] rosuvastatin 20 mg tablet 20 mg PO DAILY cholesterol 03/05/22 [History Last Taken Unknown] furosemide 40 mg tablet 40 mg PO BID water pill 03/15/22 [History Last Taken Unknown] spironolactone 25 mg tablet 25 mg PO DAILY heart 03/15/22 [History Last Taken Unknown] losartan 50 mg tablet 50 mg PO BID #180 tabs 03/21/22 [Rx Last Taken Unknown] gabapentin 600 mg tablet 1,200 mg PO QHS nerve pain 03/27/22 [History Last Taken Unknown] vitamins A,C,W-qgnm-yunice 2,148 mcg-113 mg-45 mg-17.4 mg tablet (PreserVision AREDS) 1 tab PO BID eye health 03/27/22 [History Last Taken Unknown] cephalexin 500 mg capsule 500 mg PO Q6 #40 caps 05/16/22 [Rx Last Taken Unknown] ondansetron 4 mg disintegrating tablet 4 mg PO Q8H PRN nausea and vomiting #10 tabs 05/16/22 [Rx Last Taken Unknown] Allergy/AdvReac Type Severity Reaction Status Date / Time No Known Allergies Allergy Verified 05/16/22 19:03 Family History Sister Alcoholism Cancer Mother Arthritis Father Arthritis Brother Cancer Surgical History H/O coronary artery bypass surgery (02/14/06) History of cardioversion (12/2016) History of colonoscopy (03/22/20) History of coronary artery stent placement (12/23/06) History of esophagogastroduodenoscopy (03/22/20) History of hammer toe correction History of left heart catheterization (2016) History of lobectomy of lung History of open reduction and internal fixation (ORIF) procedure History of open reduction and internal fixation (ORIF) procedure History of right and left heart catheterization (12/04/16) History of tonsillectomy and adenoidectomy History of transurethral resection of prostate Hx of toe surgery Status post insertion of iliac artery stent (08/04/12) Status post surgical removal of neoplasm of skin SURGICAL REMOVAL LEFT GREAT TOE Social History Smoking Status: Former smoker how long ago did patient quit smokin years ago second hand exposure: No alcohol intake: current alcohol intake frequency: holidays/special occasions only Alcohol type: wine substance use type: does not use caffeine: Yes Type: coffee Number of servings: 1 what type of physical activity do you participate in: none frequency: does not exercise seatbelt use: always ROS ROS ED Constitutional Constitutional ED: Reports chills and subjective Eyes Eyes: Denies change in vision ENT ENT ED: Denies rhinorrhea or sore throat Cardiovascular Cardiovascular: Denies chest pain or palpitations Respiratory/Chest Respiratory/Chest: Reports cough Gastrointestinal Gastrointestinal: Reports nausea; Denies abdominal pain or vomiting Genitourinary Genitourinary ED: Reports dysuria and urinary frequency; Denies hematuria Musculoskeletal Musculoskeletal: Denies back pain Integumentary Denies rash Neurologic Neurologic: Denies headache(s) Endocrine Endocrinology: Reports polyuria; Denies polydipsia Hematologic/Lymphatic Hematologic/Lymphatic: Denies easy bleeding or easy bruising Allergic/Immunologic Allergic/Immunologic ED: Denies urticaria EXAM Physical Exam Const Vital Signs: 05/16/22 19:03 05/16/22 21:26 05/16/22 21:28 Temperature 100.0 F H 98.9 F Temperature Source Temporal Temporal Pulse Rate 105 H 82 82 Respiratory Rate 18 23 H 23 H Blood Pressure 132/95 H 102/47 L 102/47 L Blood Pressure Mean 107 65 65 Pulse Ox 94 98 98 Oxygen Delivery Method Nasal Cannula Nasal Cannula Nasal Cannula Oxygen Flow Rate (L/min) 3 3 3 05/16/22 22:00 05/16/22 22:54 Temperature 98.0 F 98.2 F Temperature Source Temporal Pulse Rate 75 78 Respiratory Rate 24 H 23 H Blood Pressure 132/74 H 113/62 Blood Pressure Mean 93 Pulse Ox 99 97 Oxygen Delivery Method Nasal Cannula Oxygen Flow Rate (L/min) 3 Positive well nourished and well developed General Appearance ED: well developed HEENT Reports moist mucous membranes Eyes General Eye ED: Negative for scleral icterus Neck no lymphadenopathy Resp normal respiratory effort and clear to auscultation bilaterally Resp Narrative: Lungs actually sound clear on exam. He is on his oxygen and saturating 94 to 96%. No coughing while I am in the room. Cardio regular rate Rate: other Other Details: Rate is about 90-95. GI normal to inspection, nondistended, normoactive bowel sounds GI Narrative: Abdomen is obese but otherwise benign. I do not get any suprapubic tenderness of note. Back/Spine no CVA tenderness Extremity General Extremety ED: Negative for tenderness Neuro oriented x3 Psych mental status grossly normal Skin no rashes or lesions noted MDM MDM MDM Narrative Medical decision making narrative: Patient CBC does show a high white count at 17.6. He has not had this elevated before but I still have to be concerned that this might be acute due to infection. Electrolytes show elevated creatinine 1.77. Although this is higher than some recent test he has had a much higher in the past. Patient's lactate is very normal. Urine is strongly consistent with a UTI. Chest x-ray shows no pneumonia. I talked with patient about options. He does not want to be admitted at this time. He states 1 time he had to come back daily for antibiotics through the IV. That may have been after surgery. I looked back at his last 2 cultures and they were E. coli that were sensitive to Ancef. I have already given him IV Rocephin. We will write for Keflex. He states his helps him at home. He uses a walker all the time. He is eating and drinking. He is getting around okay. He does not want to come in the hospital at this time. I explained that due to his age and overall health, if he worsens at all he should return. If he has any problems with vomiting or inability to take p.o. or his meds he needs to come back. He has very awake alert and appropriate. Lab Data Attestation: I reviewed the patient's lab results. Labs: Laboratory Results - last 24 hr 05/16/22 05/16/22 05/16/22 20:23 20:23 20:23 WBC 17.6 H RBC 3.60 L Hgb 11.1 L Hct 33.6 L MCV 93.3 MCH 30.8 MCHC 33.0 RDW Std Deviation 48.6 H RDW Coeff of Iram 14.3 Plt Count 200 MPV 10.0 Immature Gran % (Auto) 0.600 Neut % (Auto) 85.7 H Lymph % (Auto) 4.0 L [place] % (Auto) 8.8 Eos % (Auto) 0.7 Baso % (Auto) 0.2 Absolute Neuts (auto) 15.0 H Absolute Lymphs (auto) 0.70 L Nucleated RBC % 0 Differential Comment SEE COMMENT Diff Path Review May foll Platelet Estimate ADEQUATE RBC Morphology N CHROM Anisocytosis RARE Macrocytosis RARE Sodium 136 Potassium 4.4 Chloride 101 Carbon Dioxide 27.0 Anion Gap 8 BUN 52 H Creatinine 1.77 H Estim Creat Clear Calc 36.66 Est GFR (MDRD) Af Amer 48 L Est GFR (MDRD) Non-Af 40 L BUN/Creatinine Ratio 29.4 H Glucose 227 H Lactic Acid 1.0 Calcium 9.1 Urine Color Urine Clarity Urine pH Ur Specific [place] Urine Protein Urine Glucose (UA) Urine Ketones Urine Occult Blood Urine Nitrite Urine Bilirubin Urine Urobilinogen Ur Leukocyte Esterase Urine RBC Urine WBC Ur Squamous Epith Cells Urine Bacteria Urine Mucus 05/16/22 20:45 WBC RBC Hgb Hct MCV MCH MCHC RDW Std Deviation RDW Coeff of Iram Plt Count MPV Immature Gran % (Auto) Neut % (Auto) Lymph % (Auto) [place] % (Auto) Eos % (Auto) Baso % (Auto) Absolute Neuts (auto) Absolute Lymphs (auto) Nucleated RBC % Differential Comment Diff Path Review Platelet Estimate RBC Morphology Anisocytosis Macrocytosis Sodium Potassium Chloride Carbon Dioxide Anion Gap BUN Creatinine Estim Creat Clear Calc Est GFR (MDRD) Af Amer Est GFR (MDRD) Non-Af BUN/Creatinine Ratio Glucose Lactic Acid Calcium Urine Color Yellow Urine Clarity Cloudy Urine pH 6.0 Ur Specific [place] 1.010 Urine Protein 100 H Urine Glucose (UA) Normal Urine Ketones Negative Urine Occult Blood 50 H Urine Nitrite Negative Urine Bilirubin Negative Urine Urobilinogen Normal Ur Leukocyte Esterase 500 H Urine RBC 0 SEEN Urine WBC >100 SEEN Ur Squamous Epith Cells 0-5 SEEN Urine Bacteria 1+ Urine Mucus 0 SEEN Radiography Diagnostic Testing: Clinical Impression(s) from Imaging Studies Chest X-Ray 05/16/22 21:22 IMPRESSION: No pneumonia. Findings suggest low-grade left ventricular dysfunction. Electronically Signed: Keaton Ac MD at 21:44 EST , Single view chest x-ray looked at by me and read by radiology shows no acute process. Discharge Plan Triage Chief Complaint: Complaint ED Provider: Adelso Liriano Dx/Rx/DC Orders Clinical Impression: Acute UTI, Leukocytosis Instructions: ED Urinary Tract Infections in Men Prescriptions: New cephalexin [cephalexin] 500 mg capsule 500 mg PO Q6 Qty: 40 0RF ondansetron 4 mg tablet,disintegrating 4 mg PO Q8H PRN (Reason: nausea and vomiting) Qty: 10 0RF No Action cholecalciferol (vitamin D3) 5,000 unit capsule 5,000 unit PO DAILY finasteride 5 mg tablet 5 mg PO DAILY@1200 Trelegy Ellipta 100-62.5-25 mcg blister with device 1 inh inhalation DAILY omeprazole 20 mg capsule,delayed release(DR/EC) 20 mg PO DAILY rosuvastatin 20 mg tablet 20 mg PO DAILY folic acid 1 MG tablet 1 mg PO DAILY@1200 docusate sodium 100 mg capsule 100 mg PO BID Rx Instructions: noon and bedtime pramipexole 0.5 MG tablet 0.5 mg PO TID gabapentin 600 mg tablet 1,200 mg PO QHS ferrous sulfate 325 MG tablet 65 mg PO DAILY tamsulosin 0.4 MG capsule 0.4 mg PO QHS PreserVision AREDS 2,148 mcg-113 mg-45 mg-17.4mg tablet 1 tab PO BID cyanocobalamin (vitamin B-12) 1,000 MCG/ML solution 1,000 mcg IM Q30D trazodone 50 mg Tablet 50 mg PO QHS Rhinase 15-0.17-20-0.22 % Gel 1 ea INTRANASAL PRN PRN (Reason: DRY NOSE) furosemide 40 mg tablet 40 mg PO BID spironolactone 25 mg tablet 25 mg PO DAILY metoprolol succinate 100 mg tablet extended release 24 hr 100 mg PO DAILY Qty: 90 3RF amlodipine 5 mg tablet 5 mg PO DAILY Qty: 90 3RF losartan 50 mg tablet 50 mg PO BID Qty: 180 3RF Primary Care Provider: Fany Hobson Referrals: Fany Hobson DO [Primary Care Provider] - 3-5 Days Disposition Disposition: Home, Self Care Discharge Date/Time: 05/16/22 23:28
[2022-05-16] MEDS: Acetaminophen 500 MG Tablet 1000 MG PO (20:44)
[2022-05-16] MEDS: Ondansetron 4 MG/2 ML Vial IV (20:44)
[2022-05-16 20:45] LABS: Basophil# 0.04 X10^3/uL; Basophil% 0.2 % (0-1); Eosinophil# 0.12 X10^3/uL; Eosinophils% 0.7 % (0-5); Hematocrit 33.6 % (40-54); Hemoglobin 11.1 g/dL (13.0-16.5); Mean Corpuscular Hgb 30.8 pg (27.0-32.0); Mean Corpuscular Volume 93.3 fL (80-94); Monocyte# 1.55 X10^3/uL; Monocyte% 8.8 % (0-10); NRBC Flagged by Analyzer 0 % (0-5); Neutrophil # 15.04 X10^3/uL (2.7-7.7); Neutrophil % 85.7 % (47-70); POSITIVE DIFFERENTIAL YES; Platelet Count 200 K/mm3 (150-450); RBC Distribution Width CV 14.3 % (11.6-14.6); RBC Distribution Width SD 48.6 fl (35.1-43.9); White Blood Count 17.6 K/mm3 (4.4-11.0)
[2022-05-16 20:50] LABS: Differential Indicated SCAN CRITERIA MET
[2022-05-16 20:59] LABS: Mucous, Urine 0 SEEN /hpf (<or=2+); Red Blood Cells-Urine 0 SEEN /hpf (0-5)
[2022-05-16 21:02] LABS: Color, Urine Yellow (Yellow); Glucose, Dipstick Normal (Normal); Ketone-Dipstick Negative (Negative); Leukocyte Esterase-Dipstick 500 /ul (Negative); Nitrite-Dipstick Negative (Negative); Occult Blood-Urine 50 /ul (Negative); Protein-Dipstick 100 mg/dl (Negative); Urine Bilirubin Dipstick Negative (Negative); Urine Clarity Cloudy (Clear); Urine Urobilinogen Normal (Normal)
[2022-05-16 21:10] LABS: Anisocytosis RARE; Macrocytosis RARE; Platelet Estimate ADEQUATE (ADEQ); Red Cell Morphology N CHROM NORMAL (NORM C&C)
[2022-05-16 21:13] LABS: Anion Gap 8 (5-15); BUN 52 mg/dL (7-18); BUN/Creat Ratio 29.4 RATIO (10-20); Calcium,Total 9.1 mg/dL (8.5-10.1); Chloride 101 mmol/L (98-107); Creatinine, Serum 1.77 mg/dL (0.70-1.30); EST Glomerular Filtration Rate 40 mL/min (>60); Est Glom Filt Rate - Afr Amer 48 mL/min (>60); Estimated Creatinine Clearance 36.66 ml/min; Glucose 227 mg/dL (74-106); Potassium 4.4 mmol/L (3.5-5.1); Sodium Level 136 mmol/L (136-145)
[2022-05-16 21:14] LABS: Bacteria 1+ /hpf (None Seen); Squamous Epithelial Cells - UA 0-5 SEEN /hpf (0-5); White Blood Cells >100 SEEN /hpf (0-5)
--- NOTE | 2022-05-16 21:22 | RAD_ITS ---
EXAM: XR CHEST, 1 VIEW CLINICAL INDICATION: cough TECHNIQUE: Frontal view of the chest. This report was created using [employer] report generation technology. COMPARISON: 10/20/21 FINDINGS: LUNGS AND PLEURAL SPACES: Unremarkable. No consolidation or edema. No pneumothorax. No effusion. Vascular congestion at the upper lungs. HEART: Mildly enlarged cardiac silhouette. MEDIASTINUM: Central airways and mediastinal contour are unremarkable. BONES/JOINTS: Intact sternotomy wires and demonstration of surgical clips along the superior mediastinum. No suspicious lytic or sclerotic lesions of bone. Degenerative changes of the spine. SOFT TISSUES: Unremarkable. TUBES, LINES AND DEVICES: Stable right chest port. RAD/Chest 1 View (Portable) IMPRESSION: No pneumonia. Findings suggest low-grade left ventricular dysfunction. Electronically Signed: Keaton Ac MD at 21:44 EST ,
[2022-05-16 21:26] VITALS: BP 102/47; PULSE 82; RESP 23; O2SAT 98
[2022-05-16 21:28] VITALS: BP 102/47; PULSE 82; RESP 23; TEMP 37.2; O2SAT 98
[2022-05-16] MEDS: Ceftriaxone 1 GM/50 ML BAG IV (21:45)
[2022-05-16 22:00] VITALS: BP 132/74; PULSE 75; RESP 24; TEMP 36.7; O2SAT 99
--- NOTE | 2022-05-16 22:05 | ED.RN ---
Update given to Ashley, , about pt care.
[2022-05-16 22:54] VITALS: BP 113/62; PULSE 78; RESP 23; TEMP 36.8; O2SAT 97
--- NOTE | 2022-05-16 23:27 | ED.RN ---
De-accessed pt port with heparin flush per protocol. Unable to scan flush in AUG. Verified dose and pt before administration.
[2022-05-17 12:04] LABS: Pathologist Review Reviewed
== END 2022-05-16 23:28 | disposition home or self-care (01) ==
PROVIDERS: Emergency Provider Emergency Medicine; PCP Internal Medicine; Visit Provider Emergency Medicine
DX: N39.0 Urinary tract infection, site not specified (principal); J44.9 Chronic obstructive pulmonary disease, unspecified; I50.42 Chronic combined systolic (congestive) and diastolic (congestive) heart failure; I11.0 Hypertensive heart disease with heart failure; B96.20 Unspecified Escherichia coli [E. coli] as the cause of diseases classified elsewhere; Z87.891 Personal history of nicotine dependence; D72.829 Elevated white blood cell count, unspecified; E78.5 Hyperlipidemia, unspecified; I25.10 Atherosclerotic heart disease of native coronary artery without angina pectoris; R11.10 Vomiting, unspecified; Z99.89 Dependence on other enabling machines and devices
CPT/HCPCS: 36591; 71045; 80048; 81001; 83605; 85025; 87040; 87077; 87086; 87088; 87186; 87804; 96365; 96375; 99285; J7050; A4216; J2405

== ENCOUNTER → 2022-06-28 | Outpatient (CLI) | payer MEDICARE, OTHER, SELFPAY ==
[2022-06-28 16:31] LABS: Color, Urine Yellow (Yellow); Glucose, Dipstick Normal (Normal); Ketone-Dipstick Negative (Negative); Leukocyte Esterase-Dipstick Negative /ul (Negative); Nitrite-Dipstick Negative (Negative); Occult Blood-Urine 10 /ul (Negative); Protein-Dipstick Negative (Negative); Urine Bilirubin Dipstick Negative (Negative); Urine Clarity Clear (Clear); Urine Urobilinogen Normal (Normal)
== END | disposition home or self-care (01) ==
PROVIDERS: PCP Internal Medicine; Visit Provider Internal Medicine
DX: R31.9 Hematuria, unspecified (principal)
CPT/HCPCS: 81002; 87086; 87088

== ENCOUNTER → 2022-08-21 | Outpatient (CLI) | payer MEDICARE, OTHER, SELFPAY ==
--- NOTE | 2022-08-21 08:05 | CDU_ITS ---
Reason For Study: Stenosis Rt. Velocities/BP Lt. Velocities/BP Prox CCA 74.0/15.4 cm/sec. Prox CCA 85.0/19.0 cm/sec. Mid CCA 97.6/18.2 cm/sec. Mid CCA 77.3/22.3 cm/sec. Dist CCA 99.5/22.0 cm/sec. Dist CCA 64.1/10.2 cm/sec. Prox ICA 103.6/21.2 cm/sec. Prox ICA 97.1/25.6 cm/sec. Mid ICA 103.6/21.2 cm/sec. Mid ICA 121.1/18.8 cm/sec. Dist ICA 97.1/17.9 cm/sec. Dist ICA 83.4/14.5 cm/sec. Rt. ICA/CCA = 1.1. Lt. ICA/CCA = 1.6. Prox ECA 165.3/11.6 cm/sec. Prox ECA 389.6/40.4 cm/sec. Rt. Vert. 42.2/4.5 cm/sec. Lt. Vert. 48.5/12.6 cm/sec. Right Extracranial There is heterogeneous, irregular atherosclerotic plaque noted in the right common carotid artery. There is heterogeneous, irregular atherosclerotic plaque noted in the right internal carotid artery. The atherosclerotic plaque causes acoustic shadowing. There is heterogeneous, irregular atherosclerotic plaque noted in the right external carotid artery. Antegrade flow is noted in the right vertebral artery. Left Extracranial There is heterogeneous, irregular atherosclerotic plaque noted in the left common carotid artery. There is heterogeneous, irregular atherosclerotic plaque noted in the left internal carotid artery. The atherosclerotic plaque causes acoustic shadowing. There is heterogeneous, irregular atherosclerotic plaque noted in the left external carotid artery. Antegrade flow is noted in the left vertebral artery. Procedure Carotid Duplex [id number]. This is a Carotid Duplex examination using B-mode, color flow and specral Doppler. The exam was diagnostic. Exam performed in department. VL/Carotid Duplex Ultrasound Interpretation Summary Mild (<50%) stenosis right extracranial internal carotid. Mild (<50%) stenosis left extracranial internal carotid. Flow within the vertebral arteries is antegrade bilaterally. Ordering Physician: Jamie Cheung Referring Physician: Fany Hobson D.O. Performed By: Bandar Joiner RVT
--- NOTE | 2022-08-21 08:06 | ART_ITS ---
Reason For Study: Atherosclerosis Procedure A bilateral lower extremity continuous wave Doppler with analog waveform analysis and ankle brachial indexes. Left Segmental Pressures Left brachial= 137mmHg. Left posterior tibial artery = 124mmHg. Left dorsalis pedis artery = 109mmHg. The left posterior tibial artery waveforms are biphasic. The left dorsalis pedis waveforms are biphasic. Right Segmental Pressures Right brachial= 123mmHg. Right posterior tibial artery = 136mmHg. Right dorsalis pedis artery = 140mmHg. Right digit = 67 mmHg. The right posterior tibial artery waveforms are triphasic. The right dorsalis pedis waveforms are triphasic. Indices The right ankle brachial index by the posterior tibial artery is 0.99. The right ankle brachial index by the dorsalis pedis is 1.02. The right digital-brachial index is 0.49. The left ankle brachial index by the posterior tibial artery is 0.91. The left resting ankle brachial index is 0.80. The left digital-brachial index is previous great toe amputation. VL/Ankle Brachial Index Interpretation Summary Right normal at rest with triphasic flow and ABO 1.02. Left mild with biphasic and KOBY 0.91. Ordering Physician: Jamie Cheung Referring Physician: Fany Hobson D.O. Performed By: Bandar Joiner RVT
--- NOTE | 2022-08-21 08:14 | AAVD_ITS ---
Reason For Study: Atherosclerosis Aorta Measurements Aorta Doppler Measurements Proximal aorta measures1.82 x 1.87cm. in cross- Peak systolic flow velocities within the proximal sectional axis. aorta measure 63.2 cm/sec. Proximal aorta measures1.87cm. in longitudinal Peak systolic flow velocities within the mid aorta axis. measure 94.1 cm/sec. Mid aorta measures2.09 x 2.16cm. in cross- Peak systolic flow velocities within the distal sectional axis. aorta measure 79.6 cm/sec. Mid aorta measures2.09cm. in longitudinal axis. Distal aorta measures1.40 x 1.40cm. in cross- sectional axis. Distal aorta measures1.37cm. in longitudinal axis. Left Iliac Artery Left iliac artery measures 0.78 x 0.80 cm. in the cross-sectional axis. Left iliac artery measures 0.81 cm. in the longitudinal axis. Peak systolic velocity in the left iliac artery measures 144.8 cm/sec. Right Iliac Artery Right iliac artery measures 0.60 x 0.70 cm. in the cross-sectional axis. Right iliac artery measures 0.76 cm. in the longitudinal axis. Peak systolic velocity in the right iliac artery measures 137.1 cm/sec. Procedure Aorta IVC Iliac vasculature or bypass grafts [id number]. The exam was diagnostic. Exam performed in department. VL/Abd Aortic/IVC Duplex scan Interpretation Summary no evidence aortoiliac aneurysm or stenosis. Ordering Physician: Jamie Cheung Referring Physician: Fany Hobson Performed By: Bandar Joiner, RVT
== END | disposition home or self-care (01) ==
LOC: CVS 08:04
PROVIDERS: PCP Internal Medicine; Visit Provider Surgery Vascular Surgery
DX: I65.23 Occlusion and stenosis of bilateral carotid arteries (principal); I70.213 Atherosclerosis of native arteries of extremities with intermittent claudication, bilateral legs; Z48.812 Encounter for surgical aftercare following surgery on the circulatory system; R09.89 Other specified symptoms and signs involving the circulatory and respiratory systems
CPT/HCPCS: 93880; 93922; 93978

== ENCOUNTER → 2022-09-18 | Outpatient (CLI) | payer MEDICARE, OTHER, SELFPAY ==
--- NOTE | 2022-09-18 13:36 | CT_ITS ---
STUDY: LOW DOSE CT LUNG CANCER SCREENING REASON FOR EXAM: Male, 77 years old. H/o NSCLC resected 2017; surveillance -- H/o NSCLC resected 2017; surveillance RADIATION DOSAGE (If Supplied By Facility): CTDIvol = ( 3.18 ) mGy, DLP = ( 114.37 ) mGycm TECHNIQUE: No contrast was administered. Low dose technique was utilized (average mAS-38 and kVp 120). 1.25 mm axial source images with a slice interval of 1.25-mm were reconstructed in lung windows. 2.5 mm axial source images with a slice interval of 2.5-mm were reconstructed in lung windows. COMPARISON: July 06 2021, April 17, 2020, November 10, 2019. NODULES: Multiple bilateral 1-3 mm calcified granulomas without significant change from November 10, 2019 No new or enlarging pulmonary nodule. Parenchyma: No airspace consolidation, effusion, pneumothorax. Left upper lung scarring status post partial lobectomy is unchanged from November 10, 2019. Linear subsegmental atelectasis in the medial right upper lobe. Moderate diffuse emphysematous change. Endobronchial lesion: None Aorta: Mild aortic atherosclerosis without ectasia CORONARY ARTERIES: Severe three-vessel coronary atherosclerosis. Coronary bypass changes noted. Heart: Cardiomegaly. No pericardial effusion. Pulmonary artery: Mild enlargement relative to aorta as can be seen with pulmonary hypertension. Mediastinal nodes: No mediastinal adenopathy by size criteria. No bulky adenopathy Other chest and abdominal findings: Sternotomy changes noted. Right chest port with tip projecting at the distal superior vena cava. CT/Low Dose CT Lung Screening IMPRESSION: Sequela of prior granulomatous disease and prior left upper lung partial lobectomy. Moderate emphysematous change. Cardiomegaly with coronary bypass changes Lung-RADS category 1 - Continue annual screening with LDCT in 12 months. IMPORTANT NOTES FOR USE: ACR Lung-RADS Version 1.1 Assessment Categories Release Date: 2018 Category: Coded 0-4 bases on nodule(s) with highest degree of suspicion. Negative screen is defined as categories 1 and 2; a positive screen is defined as categories 3 and 4. Category 3 and 4A nodules that are unchanged on interval CT should be coded as category 2, and individuals returned to screening in 12 months. Category 4X: Category 3 or 4 nodules with additional imaging findings that increase the suspicion of lung cancer, such as spiculation, GGN that doubles in size in 1 year, enlarged lymph notes, etc. Category Modifiers: S (significant finding unrelated to lung cancer) Electronically Signed: Alphonse Gibson MD at 8:39 EDT ,
== END | disposition home or self-care (01) ==
LOC: CT 13:33
PROVIDERS: PCP Internal Medicine; Referring Provider Nurse Practitioner Family; Visit Provider Nurse Practitioner Family
DX: F17.210 Nicotine dependence, cigarettes, uncomplicated (principal); Z85.118 Personal history of other malignant neoplasm of bronchus and lung
CPT/HCPCS: 71271

== ENCOUNTER → 2023-02-12 | Outpatient (CLI) | payer MEDICARE, OTHER, SELFPAY ==
[2023-02-12 16:06] LABS: Potassium 5.1 mmol/L (3.5-5.1)
== END | disposition home or self-care (01) ==
LOC: LAB 15:44
PROVIDERS: PCP Internal Medicine; Referring Provider Internal Medicine Hematology & Oncology; Visit Provider Internal Medicine Hematology & Oncology
DX: E87.5 Hyperkalemia (principal)
CPT/HCPCS: 36415; 84132

== ENCOUNTER 2023-05-22 13:48 | Outpatient (CLI) | payer MEDICARE, OTHER, SELFPAY ==
--- NOTE | 2023-05-22 13:51 | US_ITS ---
STUDY: Left neck ULTRASOUND REASON FOR EXAM: Male, 77 years old. cervical lymphadenopathy -- schedule after 05/24 TECHNIQUE: Ultrasound evaluation of the left neck was performed with real-time and static barone-scale imaging. COMPARISON: None. FINDINGS: There is a complex cystic mass with calcification measuring 1.9 x 2.2 x 1.6 cm either within or immediately adjacent to the left submandibular gland of indeterminate etiology. CT is recommended for further evaluation US/Head/Neck Soft Tissue IMPRESSION: Possible nonspecific left submandibular mass. CT recommended Electronically Signed: Fredi Shah MD at 20:38 EST ,
== END 2023-05-22 23:59 | disposition home or self-care (01) ==
LOC: US 13:50
PROVIDERS: PCP Internal Medicine; Referring Provider Internal Medicine; Visit Provider Internal Medicine
DX: Z45.2 Encounter for adjustment and management of vascular access device (principal); R59.0 Localized enlarged lymph nodes
CPT/HCPCS: 76536; 96523

== ENCOUNTER → 2023-06-19 | Outpatient (CLI) | payer MEDICARE, OTHER, SELFPAY ==
--- NOTE | 2023-06-19 | ASPOS_PTH ---
PATHOLOGY RESULTS PATIENT: JV DURHAM Jr. LOC: LAB U#:[id number] AGE/SX: 77/M ROOM: RE06/19/[address]: Dr. Derek Prescott MD : 1945 BED: DIS: 06/19/2023 SPEC #: [id number] RECD: 06/19/23 11:05 STATUS: ELIZABETH MADELINE #: [id number] ROXANA: 06/19/23 00:[address]: Derek Prescott DEPT: CYTOLOGY RECD BY: Antwon Vasquez ENTERED: 06/19/23 11:05 SP TYPE: ASP HERE OTHR DR: Dr. Fany Hobson, DO Tissues: Neck, NOS Procedures: Surgery Specimen Level IV Cytology Other Fine Needle Asp on Site HEADER OPERATION: Fine needle aspiration left neck mass PRE-OP DIAGNOSIS: Left neck mass TISSUE SUBMITTED: Left neck mass DIAGNOSIS CYTOLOGY Left neck mass, fine needle aspiration (smears and cell block): Consistent with benign cyst content. Negative for malignant cells. See comment. SJ:armando 06/20/2023 COMMENT A fine needle aspiration was performed and the specimen is evaluated at the time of FNA by Dr. Morales. Immediate Evaluation = Consistent with benign cyst contents. The specimen entirely consists of macrophages. Cyst lining cells are not identified. The mass completely resolved after aspiration of 2.0 cc of light clear yellow fluid. Clinical correlation and appropriate follow up are necessary. CYTOLOGY STUDY Slides are reviewed. CYTOLOGY GROSS Received is 2.0 ml of oily yellow fluid labeled with the patient's name, and designated left neck mass. Five imprints and one paps are made from the submitted fluid and the rest is added to CytoLyt for cell block preparation. Submitted for cytology study. / AM:armando 06/19/2023 TC:5 CPT: 14726, 70210, 57238, 62050
== END | disposition home or self-care (01) ==
PROVIDERS: PCP Internal Medicine; Referring Provider Otolaryngology; Visit Provider Otolaryngology
DX: R22.1 Localized swelling, mass and lump, neck (principal)
CPT/HCPCS: 10021; 88161; 88305

== ENCOUNTER → 2023-06-20 | Outpatient (CLI) | payer MEDICARE, OTHER, SELFPAY ==
--- NOTE | 2023-06-20 14:40 | CT_ITS ---
INDICATION: L NECK MASS EXAMINATION: CT NECK - CT Soft Tissue Neck W/O Contrast Injection TECHNIQUE: Multiple axial images were obtained of the neck. A radiation dose optimization technique was used for this scan. IV Contrast dosage and agent: None. RADIATION DOSAGE (If Supplied By Facility): CTDIvol = ( 21.20 ) mGy, DLP = ( 678.02 ) mGycm COMPARISON: FINDINGS: NASOPHARYNX: Unremarkable. SUPRAHYOID NECK: Unremarkable oropharynx, oral cavity, parapharyngeal space, and retropharyngeal space. INFRAHYOID NECK: Unremarkable larynx, hypopharynx, and supraglottis. THYROID: No focal lesions. SALIVARY GLANDS: Unremarkable. LYMPH NODES: There is a 1.8 cm subcutaneous nodule located just superficial to the left sternocleidomastoid just inferior to the left parotid gland possibly an enlarged node. VASCULAR STRUCTURES: Calcifications at the visualized aortic arch. There is a right-sided jugular venous line. VISUALIZED PORTIONS OF THE ORBITS, PARANASAL SINUSES, MASTOID AIR CELLS AND SKULL BASE: Unremarkable. BONES: Degenerative cervical changes more significant at C5-6. THORACIC INLET: Clear lung apices. CT/Soft Tissue Neck without Contr IMPRESSION: Subcutaneous nodule within the left-sided neck superficial to the left sternocleidomastoid just inferior to the left parotid gland possibly an enlarged node. Electronically Signed: Ramses Eaton DO at 18:[address] [facility] ,
== END | disposition home or self-care (01) ==
LOC: CT 14:39
PROVIDERS: PCP Internal Medicine; Referring Provider Otolaryngology; Visit Provider Otolaryngology
DX: R22.1 Localized swelling, mass and lump, neck (principal)
CPT/HCPCS: 70490

== ENCOUNTER 2023-06-21 16:02 | Emergency (ER) | payer MEDICARE, OTHER, SELFPAY ==
[2023-06-21 16:04] VITALS: BP 192/109; PULSE 60; RESP 24; TEMP 36.3; O2SAT 97
--- NOTE | 2023-06-21 16:37 | ED.VIS.DYS ---
HPI History of Present Illness Chief Complaint: Shortness of Breath Narrative Narrative: Lonnie a 7-year-old male past medical history of COPD, hypertension, presents with a few days of cough and increasing dyspnea with green sputum production. He denies any fevers or chills. States he was at the hospital yesterday for procedure, and had to return today because he gets into coughing jags and has had increasing shortness of breath with dyspnea on exertion. He can wear up to 3 L of oxygen as recommended by his student ministry pastor, Dr. Storm. He states that sometimes when he is at rest he does not even need oxygen, but has had increased oxygen requirement over the last few days. He uses Trelegy as an inhaler, but denies any recent steroid use. No chest pain or leg swelling, no other symptoms. [facility] Medical History Acute kidney injury Adenocarcinoma of lung, stage 1 Adrenal mass Alcohol dependence Ambulates with cane Amputated great toe of left foot Amputation of one or more toes Anemia Arthritis Atherosclerosis of coronary artery of [place] heart without angina pectoris Benign essential hypertension BiPAP (biphasic positive airway pressure) dependence Cancer of upper lobe of left lung Chronic combined systolic and diastolic CHF (congestive heart failure) Chronic gastritis Chronic ulcer of left foot with fat layer exposed COPD (chronic obstructive pulmonary disease) COVID Dementia Diverticular disease Emphysema, unspecified Essential tremor Former smoker Gastric AVM Gastric reflux GERD (gastroesophageal reflux disease) GI bleed Hammer toe of left foot History of atrial fibrillation History of atrial fibrillation History of echocardiogram History of edema History of lung cancer History of pain when walking History of Parkinson's disease History of stress test Hx of cancer of lung Hx of fracture of ankle Hyperlipidemia Hypertension Injury of head and neck Iron deficiency anemia due to chronic blood loss Longstanding persistent atrial fibrillation Migraine headache Multiple premature ventricular complexes NSTEMI (non-ST elevated myocardial infarction) (12/02/19) On home oxygen therapy HEBER (obstructive sleep apnea) Parkinson's disease Parkinsons Polyp of colon, adenomatous 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 Pulmonary hypertension Respiratory failure with hypoxia Right ventricular dilation, secondary Right ventricular systolic dysfunction Sepsis 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 Uses wheelchair Walker as ambulation aid Wears glasses Home Medications folic acid 1 mg tablet 1 mg PO DAILY@1200 supplement 05/06/13 [History Last Taken 07/14/20] pramipexole 0.5 mg tablet 0.5 mg PO TID parkinsons 12/04/16 [History Last Taken 10/06/20] docusate sodium 100 mg capsule 100 mg PO BID bowels 10/20/17 [History Last Taken 07/14/20] ferrous sulfate 325 mg (65 mg iron) tablet 65 mg PO DAILY supplement 02/01/19 [History Last Taken 07/14/20] cholecalciferol (vitamin D3) 125 mcg (5,000 unit) capsule 5,000 unit PO DAILY cholesterol 03/30/19 [History Last Taken 07/14/20] cyanocobalamin (vitamin B-12) 1,000 mcg/mL injection solution 1,000 mcg IM Q30D suppliment 03/10/20 [History Last Taken 06/30/20] peg 15 %-potass chl 0.17 %-propyl gly 20 %-sodium chl 0.22 % nasal gel (Rhinase) 1 ea intranasal PRN PRN DRY NOSE 03/21/21 [History Last Taken Unknown] trazodone 50 mg tablet 50 mg PO QHS sleep 03/21/21 [History Last Taken Unknown] rosuvastatin 20 mg tablet 20 mg PO DAILY cholesterol 03/05/22 [History Last Taken Unknown] vitamins A,C,V-ifra-fcxpew 2,148 mcg-113 mg-45 mg-17.4 mg tablet (PreserVision AREDS) 1 tab PO BID eye health 03/27/22 [History Last Taken Unknown] gabapentin 600 mg tablet 600 mg PO QHS nerve pain 06/11/22 [History Last Taken Unknown] metoprolol succinate 100 mg tablet,extended release 24 hr 100 mg PO DAILY bp,heart #90 tabs 06/11/22 [Rx Last Taken Unknown] fluticasone fur. 100 mcg-umeclid 62.5 mcg-vilant 25 mcg inhalat.powder (Trelegy Ellipta) 1 inh inhalation DAILY dm #60 ea 08/08/22 [Rx Last Taken Unknown] spironolactone 25 mg tablet 25 mg PO DAILY heart #90 tabs 08/27/22 [Rx Last Taken Unknown] amlodipine 5 mg tablet 5 mg PO DAILY htn #90 tabs 12/16/22 [Rx Last Taken Unknown] losartan 50 mg tablet 50 mg PO BID #180 tabs 03/06/23 [Rx Last Taken Unknown] furosemide 40 mg tablet 40 mg PO DAILY water pill 04/08/23 [History Last Taken Unknown] albuterol sulfate 90 mcg/actuation aerosol inhaler (Ventolin HFA) 1 - 2 puff inhalation Q4H PRN PRN Wheezing #1 ea 06/21/23 [Rx Last Taken Unknown] azithromycin 250 mg tablet 250 mg PO DAILY 5 days #5 tabs 06/21/23 [Rx Last Taken Unknown] Allergy/AdvReac Type Severity Reaction Status Date / Time No Known Allergies Allergy Verified 06/21/23 16:05 Family History Sister Alcoholism Cancer Mother Arthritis Father Arthritis Brother Cancer Surgical History H/O coronary artery bypass surgery (02/14/06) History of cardioversion (12/2016) History of colonoscopy (03/22/20) History of coronary artery stent placement (12/23/06) History of esophagogastroduodenoscopy (03/22/20) History of hammer toe correction History of left heart catheterization (2016) History of lobectomy of lung History of open reduction and internal fixation (ORIF) procedure History of open reduction and internal fixation (ORIF) procedure History of right and left heart catheterization (12/04/16) History of tonsillectomy and adenoidectomy History of transurethral resection of prostate Hx of toe surgery Status post insertion of iliac artery stent (08/04/12) Status post surgical removal of neoplasm of skin SURGICAL REMOVAL LEFT GREAT TOE Social History Smoking Status: Former smoker how long ago did patient quit smokin years ago second hand exposure: No alcohol intake: current alcohol intake frequency: holidays/special occasions only Alcohol type: wine substance use type: does not use caffeine: Yes Type: coffee Number of servings: 1 what type of physical activity do you participate in: none frequency: does not exercise seatbelt use: always ROS ROS ED ROS Narrative Constitutional: No fever, no chills. HEENT: No sore throat. No neck pain. No loss of vision. No rhinorrhea. Cardiovascular: No chest pain. No palpitations. No pedal edema. Respiratory: Positive cough productive of green phlegm, positive dyspnea on exertion and shortness of breath. Abdominal: No abdominal pain. No nausea. No vomiting. Genitourinary: No dysuria. No hematuria. Musculoskeletal: No myalgias. No arthralgias. Neurologic: No headaches. No dizziness. No lightheadedness. Skin: No rash. No change in color. Psychiatric: No depression. No anxiety. EXAM Physical Exam Narrative Exam Narrative: Afebrile. Vital signs noted. Noted hypertension. HEENT: Normocephalic. Atraumatic. PERRL, EOMI. Neck soft and supple. No point tenderness or step off. Cardiovascular: Regular rate and rhythm. No murmurs, rubs, or gallops appreciated. Respiratory: Mild tachypnea. Decreased breath sounds bilateral bases, moving a fair amount of air. No stridor. Gastrointestinal: Abdomen soft, nontender, with normoactive bowel sounds. No rebound or guarding. Neurological: Awake. Alert. Nonfocal, nonlateralizing. Skin: No rash. Normal color. No pallor. Musculoskeletal: No pedal edema. Full range of motion extremities. Const Vital Signs: 06/21/23 16:04 06/21/23 17:01 06/21/23 17:02 Temperature 97.4 F L Temperature Source Temporal Pulse Rate 60 78 Respiratory Rate 24 H 18 Respiratory Effort Respiratory Pattern Blood Pressure 192/109 H 136/76 H Blood Pressure Mean 136 96 Pulse Ox 97 Oxygen Delivery Method Nasal Cannula Oxygen Flow Rate (L/min) 3 06/21/23 16:11 06/21/23 17:30 06/21/23 17:30 Temperature Temperature Source Pulse Rate 70 Respiratory Rate 16 Respiratory Effort Short of Breath Respiratory Pattern Tachypnea Blood Pressure 143/68 H Blood Pressure Mean 93 Pulse Ox 96 Oxygen Delivery Method Nasal Cannula Nasal Cannula Oxygen Flow Rate (L/min) 3 3 MDM MDM MDM Narrative Medical decision making narrative: Concern is for COPD exacerbation versus CHF versus pneumonia versus pneumothorax. He does have elevated blood pressure of 192/109. Hydralazine 10 mg was ordered. He was placed on 3 L nasal cannula oxygen and has good oxygen saturation at 97%. I have low suspicion for pulmonary embolism as he has a pulse of 60, and the history and physical does not support this. Nursing protocols were instituted for COPD exacerbation. He will be given a DuoNeb aerosolized treatment and 125 mg of Solu-Medrol. Hydralazine was held because he had an improved systolic blood pressure in the 140s. EKG was obtained and interpreted by myself as atrial fibrillation at 75 bpm without ectopy or acute ST changes. No STEMI. I reviewed his laboratory work and he has normal white count of 10.5, hemoglobin stable at 12.1 with hematocrit 38.6, platelet count normal at 188. Sodium is normal at 142 with potassium normal at 4.6, chloride slightly elevated at 112 which I think is nonspecific, BUN of 29 with creatinine 1.57, but he has a chronic kidney injury. Glucose is appropriately elevated at 103 with a normal anion gap of 5. High-sensitivity troponin is 26. I do not feel that he is having an acute coronary syndrome. I do feel he is having more of a COPD exacerbation. I reviewed his chest x-ray in 1 view and interpreted independently and see no evidence of pneumothorax or consolidation. I reviewed the radiology report which comments on slight interstitial thickening which could be consistent with pneumonia versus edema. Given his production of green phlegm, I do not feel he necessarily has a pneumonia but more of a COPD exacerbation, and I reviewed his respiratory swabs which are negative for COVID and influenza. He will be given a Z-Ron and his first dose of medication given here. I also wrote him a prescription for an albuterol inhaler. I will defer prednisone to his student ministry pastor. Upon repeat examination, he feels improved and would like to be discharged. He does not want to be admitted to the hospital. I feel that as he has oxygen at home that he can wear and he has been satting well, that he merits outpatient treatment and does not require observation or admission at this time. This was performed through shared decision making with the patient and his . Return instructions to the emergency department were reviewed. Otherwise he will follow-up with his primary care provider and/or his student ministry pastor. Disposition is discharged home in stable condition. History & Record Review Discussion w/independent historian: Patient Additional record(s) reviewed:: Prior labs Lab Data Attestation: I reviewed the patient's lab results. Labs: Laboratory Results - last 24 hr 06/21/23 16:39 WBC 10.5 RBC 4.15 L Hgb 12.1 L Hct 38.6 L MCV 93.0 MCH 29.2 MCHC 31.3 L RDW Std Deviation 46.9 H RDW Coeff of Iram 13.6 Plt Count 188 MPV 10.4 Immature Gran % (Auto) 0.800 Neut % (Auto) 76.8 H Lymph % (Auto) 10.0 L [place] % (Auto) 9.3 Eos % (Auto) 2.6 Baso % (Auto) 0.5 Absolute Neuts (auto) 8.1 H Absolute Lymphs (auto) 1.05 Nucleated RBC % 0 Sodium 142 Potassium 4.6 Chloride 112 H Carbon Dioxide 25.0 Anion Gap 5 BUN 29 H Creatinine 1.57 H Est GFR (MDRD) Af Amer 55 L Est GFR (MDRD) Non-Af 46 L BUN/Creatinine Ratio 18.5 Glucose 103 Calcium 9.3 Troponin I High Sens 26 Radiography Diagnostic Testing: Clinical Impression(s) from Imaging Studies Chest X-Ray 06/21/23 16:51 IMPRESSION: 1. Mild interstitial thickening could represent interstitial edema or pneumonia. Electronically Signed: Emerson Durant MD (Brooks) at 17:03 EST Reading Location ID and State: [facility] / [place] , Service support , Discharge Plan Triage Chief Complaint: Shortness of Breath ED Provider: Venkata Chahal Dx/Rx/DC Orders Clinical Impression: Chronic hypoxemic respiratory failure, CKD (chronic kidney disease), stage III, COPD (chronic obstructive pulmonary disease) Instructions: ED COPD Flare Prescriptions: New albuterol sulfate [Ventolin HFA] 90 mcg/actuation HFA aerosol inhaler 1 - 2 puff inhalation Q4H PRN PRN (Reason: Wheezing) Qty: 1 0RF azithromycin 250 mg tablet 250 mg PO DAILY 5 Days Qty: 5 0RF No Action cholecalciferol (vitamin D3) 5,000 unit capsule 5,000 unit PO DAILY rosuvastatin 20 mg tablet 20 mg PO DAILY furosemide 40 mg tablet 40 mg PO DAILY folic acid 1 MG tablet 1 mg PO DAILY@1200 docusate sodium 100 mg capsule 100 mg PO BID Rx Instructions: noon and bedtime pramipexole 0.5 MG tablet 0.5 mg PO TID ferrous sulfate 325 MG tablet 65 mg PO DAILY PreserVision AREDS 2,148 mcg-113 mg-45 mg-17.4mg tablet 1 tab PO BID cyanocobalamin (vitamin B-12) 1,000 MCG/ML solution 1,000 mcg IM Q30D trazodone 50 mg Tablet 50 mg PO QHS Rhinase 15-0.17-20-0.22 % Gel 1 ea INTRANASAL PRN PRN (Reason: DRY NOSE) metoprolol succinate 100 mg tablet extended release 24 hr 100 mg PO DAILY Qty: 90 3RF gabapentin 600 mg tablet 600 mg PO QHS Trelegy Ellipta 100-62.5-25 mcg blister with device 1 inh inhalation DAILY Qty: 60 11RF spironolactone 25 mg tablet 25 mg PO DAILY Qty: 90 4RF amlodipine 5 mg tablet 5 mg PO DAILY Qty: 90 3RF losartan 50 mg tablet 50 mg PO BID Qty: 180 3RF Primary Care Provider: Fany Hobson Referrals: Suresh Storm DO [Med Staff - Active Staff] - 3-5 Days if not improving Fany Hobson DO [Primary Care Provider] - 3-5 Days if not improving Activity Restrictions/Additional Instructions: Start the azithromycin tomorrow as you are given your first dose here in the emergency department of 500 mg. Use the albuterol inhaler 1 to 2 puffs inhaled every 4-6 hours as needed for shortness of breath. Wear your oxygen per nasal cannula. Return with increased shortness of breath, new or worsening symptoms. Disposition Disposition: Home, Self Care
[2023-06-21] MEDS: Ipratropium/Albuterol Sulfate 3 ML AMPUL.NEB INHALATION (16:48)
[2023-06-21] MEDS: MethylPREDNISolone 125 MG/2 ML Vial IV (16:48)
--- NOTE | 2023-06-21 16:51 | RAD_ITS ---
STUDY: X-RAY CHEST REASON FOR EXAM: Male, 77 years old. SOB TECHNIQUE: AP COMPARISON: 05/16/2022 FINDINGS: Right chest port is stable. Mild interstitial thickening is new since the prior study. There is no demonstrated pleural abnormality. There is mild cardiac enlargement. Sternal wires and mediastinal surgical clips compatible with prior CABG. Normal visualized pulmonary arteries. There is atherosclerotic calcification of the aortic arch with tortuosity. No acute bony process. There is no demonstrated abnormality of the visualized soft tissue structures of the upper abdomen. RAD/Chest 1 View (Portable) IMPRESSION: 1. Mild interstitial thickening could represent interstitial edema or pneumonia. Electronically Signed: Emerson Durant MD (Brooks) at 17:03 EST ,
[2023-06-21 16:57] LABS: Absolute Lymphocyte Count 1.05 X10^3/uL (0.83-4.51); Absolute Neutrophil Count 8.1 X10^3/uL (2.0-7.7); Basophil# 0.05 X10^3/uL; Basophil% 0.5 % (0-1); Eosinophil# 0.27 X10^3/uL; Eosinophils% 2.6 % (0-5); Hematocrit 38.6 % (40-54); Hemoglobin 12.1 g/dL (13.0-16.5); Lymphocyte # 1.05 X10^3/ul (0.83-4.51); Mean Corp Hgb Conc 31.3 g/dL (32-36); Mean Corpuscular Hgb 29.2 pg (27.0-32.0); Mean Platelet Vol. 10.4 fl (6.2-12.0); Monocyte# 0.98 X10^3/uL; Monocyte% 9.3 % (0-10); NRBC Flagged by Analyzer 0 % (0-5); Neutrophil # 8.06 X10^3/uL (2.7-7.7); Neutrophil % 76.8 % (47-70); Platelet Count 188 K/mm3 (150-450); RBC Distribution Width CV 13.6 % (11.6-14.6); RBC Distribution Width SD 46.9 fl (35.1-43.9); Red Blood Count 4.15 M/mm3 (4.6-6.2); White Blood Count 10.5 K/mm3 (4.4-11.0)
[2023-06-21 17:01] VITALS: PULSE 78; RESP 18
[2023-06-21 17:02] VITALS: BP 136/76
--- NOTE | 2023-06-21 17:05 | EKG12_ITS ---
Test Reason : SOB Blood Pressure : / mmHG Vent. Rate : 075 BPM Atrial Rate : 000 BPM P-R Int : 000 ms QRS Dur : 100 ms QT Int : 394 ms P-R-T Axes : 000 -43 032 degrees QTc Int : 439 ms Atrial fibrillation Left axis deviation Abnormal ECG Confirmed by SUNIL CLEARY, TATI ([id number]), food expeditor DEEPALI JARRELL ([id number]) on 06/23/2023 8:45:16 AM Referred By: KARINA Confirmed By:TATI BARBER MD
[2023-06-21 17:07] LABS: Anion Gap 5 (5-15); BUN 29 mg/dL (7-18); BUN/Creat Ratio 18.5 RATIO (10-20); Calcium,Total 9.3 mg/dL (8.5-10.1); Chloride 112 mmol/L (98-107); Creatinine, Serum 1.57 mg/dL (0.70-1.30); EST Glomerular Filtration Rate 46 mL/min (>60); Est Glom Filt Rate - Afr Amer 55 mL/min (>60); Glucose 103 mg/dL (74-106); Potassium 4.6 mmol/L (3.5-5.1); Sodium Level 142 mmol/L (136-145); Troponin-I HS 26 pg/mL (3.0-78.0)
[2023-06-21 17:30] VITALS: BP 143/68; PULSE 70; RESP 16; O2SAT 96
[2023-06-21] MEDS: Azithromycin 250 MG Tablet 500 MG PO (18:41)
== END 2023-06-21 19:57 | disposition home or self-care (01) ==
PROVIDERS: Emergency Provider Emergency Medicine; PCP Internal Medicine; Visit Provider Emergency Medicine
DX: J96.11 Chronic respiratory failure with hypoxia (principal); F02.80 Dementia in other diseases classified elsewhere, unspecified severity, without behavioral disturbance, psychotic disturbance, mood disturbance, and anxiety; J43.9 Emphysema, unspecified; I13.0 Hypertensive heart and chronic kidney disease with heart failure and stage 1 through stage 4 chronic kidney disease, or unspecified chronic kidney disease; I50.42 Chronic combined systolic (congestive) and diastolic (congestive) heart failure; I48.91 Unspecified atrial fibrillation; N18.30 Chronic kidney disease, stage 3 unspecified; G20.A1 Parkinson's disease without dyskinesia, without mention of fluctuations; I25.10 Atherosclerotic heart disease of native coronary artery without angina pectoris; Z79.899 Other long term (current) drug therapy; Z87.891 Personal history of nicotine dependence; Z95.1 Presence of aortocoronary bypass graft; Z95.5 Presence of coronary angioplasty implant and graft
CPT/HCPCS: 71045; 80048; 84484; 85025; 87631; 93005; 94640; 96374; 99282; J7030

== ENCOUNTER → 2023-10-17 | Outpatient (CLI) | payer MEDICARE, OTHER, SELFPAY ==
--- NOTE | 2023-10-17 08:01 | CDU_ITS ---
Reason For Study: carotid stenosis Rt. Velocities/BP Lt. Velocities/BP Prox CCA 62.5/12 cm/sec. Prox CCA 64.0/16.2 cm/sec. Mid CCA 102.1/21.7 cm/sec. Mid CCA 89.5/15.8 cm/sec. Dist CCA 102.1/19.9 cm/sec. Dist CCA 64.1/12.5 cm/sec. Prox ICA 113.9/19.5 cm/sec. Prox ICA 125.8/14.4 cm/sec. Mid ICA 109.5/23.9 cm/sec. Mid ICA 100.3/19.9 cm/sec. Dist ICA 100.8/23.9 cm/sec. Dist ICA 103.9/18.1 cm/sec. Rt. ICA/CCA = 1.1. Lt. ICA/CCA = 1.4. Prox ECA 146.9/6.8 cm/sec. Prox ECA 452.8 cm/sec. Rt. Vert. 76.0 cm/sec. Lt. Vert. 65.1 cm/sec. Right Extracranial There is heterogeneous, irregular atherosclerotic plaque noted in the right common carotid artery. There is heterogeneous, irregular atherosclerotic plaque noted in the right internal carotid artery. The atherosclerotic plaque causes acoustic shadowing. There is heterogeneous, irregular atherosclerotic plaque noted in the right external carotid artery. Antegrade flow is noted in the right vertebral artery. The internal jugular vein is partially compressible with bright hetergenous echoes consistent with chronic DVT. Left Extracranial There is heterogeneous, irregular atherosclerotic plaque noted in the left common carotid artery. There is heterogeneous, irregular atherosclerotic plaque noted in the left internal carotid artery. The atherosclerotic plaque causes acoustic shadowing. There is heterogeneous, irregular atherosclerotic plaque noted in the left external carotid artery. Antegrade flow is noted in the left vertebral artery. There is a mixed echo structure noted in the left proximal neck area measuring 1.6cm x 1.62cm. Procedure Carotid Duplex [id number]. This is a Carotid Duplex examination using B-mode, color flow and specral Doppler. Exam performed in department. VL/Carotid Duplex Ultrasound Interpretation Summary Mild (<50%) stenosis right extracranial internal carotid. Moderate (50-69%) markus nosis left extracranial internal carotid. Flow within the vertebral arteries is antegrade bilaterally. Ordering Physician: Jamie Cheung Referring Physician: Fany Hobson D.O. Performed By: Nkechi Beck RVT
--- NOTE | 2023-10-17 08:01 | AAVD_ITS ---
Reason For Study: artherosclerosis Aorta Measurements Aorta Doppler Measurements Proximal aorta measures2.13 x 1.76cm. in cross- Peak systolic flow velocities within the proximal sectional axis. aorta measure 100.3 cm/sec. Proximal aorta measures1.97cm. in longitudinal Peak systolic flow velocities within the mid aorta axis. measure 85 cm/sec. Mid aorta measures2.3 x 1.9cm. in cross-sectional Peak systolic flow velocities within the distal axis. aorta measure 65 cm/sec. Mid aorta measures2.2cm. in longitudinal axis. Distal aorta measures1.48 x 1.48cm. in cross- sectional axis. Distal aorta measures1.8cm. in longitudinal axis. Left Iliac Artery Left iliac artery measures .67 x .62 cm. in the cross-sectional axis. Left iliac artery measures .67 cm. in the longitudinal axis. Peak systolic velocity in the left iliac artery measures 164.5 cm/sec. Right Iliac Artery Right iliac artery measures .73 x .80 cm. in the cross-sectional axis. Right iliac artery measures .69 cm. in the longitudinal axis. Peak systolic velocity in the right iliac artery measures 139.8 cm/sec. Procedure Aorta IVC Iliac vasculature or bypass grafts [id number]. Exam performed in department. VL/Abd Aortic/IVC Duplex scan Interpretation Summary Aortoiliac no aneurysm or stenosis. Ordering Physician: MD Jamie Cheung Referring Physician: Fany Hobson D.O. Performed By: Nkechi Beck RVT
--- NOTE | 2023-10-17 08:01 | ART_ITS ---
Reason For Study: atherosclerosis Procedure A bilateral lower extremity continuous wave Doppler with analog waveform analysis and ankle brachial indexes. Left Segmental Pressures Left brachial= 135mmHg. Left posterior tibial artery = 112mmHg. Left dorsalis pedis artery = 101mmHg. The left dorsalis pedis waveforms are monophasic. The left posterior tibial artery waveforms are biphasic. Right Segmental Pressures Right brachial= 133mmHg. Right dorsalis pedis artery = 118mmHg. Right posterior tibial artery = 141mmHg. Right digit = 81 mmHg. The right dorsalis pedis waveforms are triphasic. The right posterior tibial artery waveforms are triphasic. Indices The right ankle brachial index by the dorsalis pedis is 0.87. The right ankle brachial index by the posterior tibial artery is 1.04. The right digital-brachial index is .60. The left ankle brachial index by the dorsalis pedis is .75. The left ankle brachial index by the posterior tibial artery is .83. VL/Ankle Brachial Index Interpretation Summary No evidence of PAD right leg with KOBY 1.04 and mild left leg at 0.83. Ordering Physician: Jamie Cheung Referring Physician: Fany Hobson D.O. Performed By: HAYDER WISE Gina
== END | disposition home or self-care (01) ==
PROVIDERS: PCP Internal Medicine; Referring Provider Surgery Vascular Surgery; Visit Provider Surgery Vascular Surgery
DX: Z48.812 Encounter for surgical aftercare following surgery on the circulatory system (principal); R09.89 Other specified symptoms and signs involving the circulatory and respiratory systems; I70.213 Atherosclerosis of native arteries of extremities with intermittent claudication, bilateral legs
CPT/HCPCS: 93880; 93922; 93978

== ENCOUNTER → 2024-01-14 | Outpatient (CLI) | payer MEDICARE, OTHER, SELFPAY ==
--- NOTE | 2024-01-14 13:56 | VDLE_ITS ---
Reason For Study: LLE SWELLING RIGHT LEFT CFV is compressible, spontaneous, phasic, CFV is compressible, spontaneous, phasic, competent and demonstrates normal competent, and demonstrates normal augmentation. augmentation. Procedure FV is compressible, spontaneous, phasic, This is a venous duplex using B-mode, color competent and demonstrates normal flow and spectral Doppler. augmentation. Exam performed in department. POP V is compressible, spontaneous, phasic, A preliminary report was called and/or faxed competent and demonstrates normal to Dr. Hobson @ [phone] @ 14:30. augmentation. T/P Trunk is compressible. PTV is compressible. LT PerV is compressible. GSV is ABSENT D/T CABG. VL/Venous Duplex US, Unilateral Interpretation Summary Deep veins of the left lower extremity are patent and compressible segmentally. There is no evidence of left lower extremity deep vein thrombosis. Valvular competence appears intac t within the proximal deep venous system on the left . The left great saphenous vein is absent, havin g been previously harvested. The right common femoral vein is patent and compressible . Ordering Physician: Fany Hobson Referring Physician: Fany Hobson Performed By: Vanda Christian, MENDEZ, RVT
== END | disposition home or self-care (01) ==
LOC: CVS 13:52
PROVIDERS: PCP Internal Medicine; Referring Provider Internal Medicine; Visit Provider Internal Medicine
DX: M79.89 Other specified soft tissue disorders (principal)
CPT/HCPCS: 93971

== ENCOUNTER 2024-04-22 16:43 | Inpatient (IN) | payer MEDICARE, OTHER, SELFPAY ==
[2024-04-22] VITALS (7 sets, daily range): BP systolic 147–167; BP diastolic 78–90; PULSE 70–95; RESP 18–28; TEMP 35.8–36.8; O2SAT 93–96; BMI 40.9; BMI 40.4
--- NOTE | 2024-04-22 16:47 | EKG12_ITS ---
Test Reason : SOB Blood Pressure : */* mmHG Vent. Rate : 94 BPM Atrial Rate : * BPM P-R Int : * ms QRS Dur : 92 ms QT Int : 344 ms P-R-T Axes : * -62 30 degrees QTcB Int : 430 ms Atrial fibrillation Left axis deviation Pulmonary disease pattern Incomplete right bundle branch block Abnormal ECG Confirmed by SUNIL CLEARY, TATI ([id number]), society editor DEEPALI JARRELL ([id number]) on 04/26/2024 10:43:31 AM Referred By: Confirmed By: TATI BARBER MD
--- NOTE | 2024-04-22 17:04 | EX.ED.DYSGE1 ---
HPI History of Present Illness Chief Complaint: Shortness of Breath Narrative Narrative: Patient is a 70-year-old male with past medical history of COPD chronically on 4 L nasal cannula, history of lung cancer, Parkinson's disease comes in with a history of atrial fibrillation not on any anticoagulation, HEBER who presented to the emerged part with chief complaint of cough, not feeling well. Patient states that he on Friday was seen for a cough and he was given antibiotics family believes this was amoxicillin as well as a shot of steroid and they state that over the weekend he seemed to be doing well however on Friday they noted that he started to decompensate. Patient states that he can barely walk a short distance without becoming very short of breath. He states that he has not increase his oxygen requirement at home. He states that he is not on Lasix. Patient did note that he has had increased use of his inhalers at home [facility] Medical History History of lung cancer Adrenal mass History of Parkinson's disease History of atrial fibrillation Hx of cancer of lung Pulmonary hypertension Emphysema, unspecified History of echocardiogram History of stress test Hypertension History of atrial fibrillation Hx of fracture of ankle COVID Chronic combined systolic and diastolic CHF (congestive heart failure) Severe pulmonary arterial systolic hypertension Wears glasses Uses wheelchair Walker as ambulation aid Ambulates with cane Arthritis Anemia Migraine headache Injury of head and neck Parkinson's disease Gastric reflux Former smoker BiPAP (biphasic positive airway pressure) dependence COPD (chronic obstructive pulmonary disease) On home oxygen therapy History of pain when walking History of edema Amputated great toe of left foot Amputation of one or more toes Chronic ulcer of left foot with fat layer exposed Hammer toe of left foot Toe osteomyelitis Right ventricular dilation, secondary Right ventricular systolic dysfunction Respiratory failure with hypoxia Diverticular disease Polyp of colon, adenomatous Chronic gastritis Multiple premature ventricular complexes Longstanding persistent atrial fibrillation Hyperlipidemia Acute kidney injury NSTEMI (non-ST elevated myocardial infarction) (12/02/19) Sepsis Gastric AVM Adenocarcinoma of lung, stage 1 GI bleed Iron deficiency anemia due to chronic blood loss Atherosclerosis of coronary artery of [place] heart without angina pectoris Cancer of upper lobe of left lung 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 Benign essential hypertension HEBER (obstructive sleep apnea) Dementia Parkinsons Essential tremor GERD (gastroesophageal reflux disease) Alcohol dependence Home Medications ?Medication ?Instructions ?Recorded ?Last Taken ?Type folic acid 1 mg tablet 1 mg PO DAILY@1200 supplement 05/06/13 07/14/20 History pramipexole 0.5 mg tablet 0.5 mg PO TID parkinsons 12/04/16 10/06/20 History docusate sodium 100 mg capsule 100 mg PO BID bowels 10/20/17 07/14/20 History ferrous sulfate 325 mg (65 mg 65 mg PO DAILY supplement 02/01/19 07/14/20 History iron) tablet cholecalciferol (vitamin D3) 125 5,000 unit PO DAILY cholesterol 03/30/19 07/14/20 History mcg (5,000 unit) capsule cyanocobalamin (vitamin B-12) 1,000 mcg IM Q30D suppliment 03/10/20 06/30/20 History 1,000 mcg/mL injection solution peg 15 %-potass chl 0.17 %-propyl 1 ea intranasal PRN PRN DRY NOSE 03/21/21 Unknown History gly 20 %-sodium chl 0.22 % nasal gel (Rhinase) trazodone 50 mg tablet 50 mg PO QHS sleep 03/21/21 Unknown History rosuvastatin 20 mg tablet 20 mg PO DAILY cholesterol 03/05/22 Unknown History vitamins A,C,K-wpsp-fidncm 2,148 1 tab PO BID eye health 03/27/22 Unknown History mcg-113 mg-45 mg-17.4 mg tablet (PreserVision AREDS) albuterol sulfate 90 mcg/actuation 1 - 2 puff inhalation Q4H PRN PRN 06/21/23 Unknown Rx aerosol inhaler (Ventolin HFA) Wheezing #1 ea metoprolol succinate 100 mg 100 mg PO DAILY bp,heart #90 tabs 08/18/23 Unknown Rx tablet,extended release 24 hr gabapentin 600 mg tablet 1,200 mg PO QHS nerve pain 09/23/23 Unknown History fluticasone fur. 100 mcg-umeclid 1 inh inhalation DAILY dm #3 ea 09/29/23 Unknown Rx 62.5 mcg-vilant 25 mcg inhalat.powder (Trelegy Ellipta) clindamycin phosphate 1 % topical topical 11/06/23 Unknown History solution diclofenac sodium 1 % topical gel topical 11/06/23 Unknown History amlodipine 5 mg tablet 5 mg PO DAILY htn #90 tabs 12/11/23 Unknown Rx losartan 50 mg tablet 50 mg PO BID #180 TABLETS 03/19/24 Unknown Rx Allergy/AdvReac Type Severity Reaction Status Date / Time No Known Allergies Allergy Verified 04/22/24 16:46 Family History Sister Alcoholism Cancer Mother Arthritis Father Arthritis Brother Cancer Surgical History History of transurethral resection of prostate Hx of toe surgery SURGICAL REMOVAL LEFT GREAT TOE History of right and left heart catheterization (12/04/16) History of colonoscopy (03/22/20) History of esophagogastroduodenoscopy (03/22/20) History of left heart catheterization (2016) History of coronary artery stent placement (12/23/06) Status post insertion of iliac artery stent (08/04/12) Status post surgical removal of neoplasm of skin History of tonsillectomy and adenoidectomy History of hammer toe correction History of open reduction and internal fixation (ORIF) procedure History of open reduction and internal fixation (ORIF) procedure History of lobectomy of lung History of cardioversion (12/2016) H/O coronary artery bypass surgery (02/14/06) Social History Smoking Status: Former smoker quit date: 11/14/93 how long ago did patient quit smokin years ago second hand exposure: No alcohol intake: current alcohol intake frequency: holidays/special occasions only Alcohol type: wine substance use type: does not use caffeine: Yes Type: coffee Number of servings: 1 what type of physical activity do you participate in: none frequency: does not exercise seatbelt use: always ROS ROS ED ROS Narrative Constitutional: Denies any fevers, chills, headaches, lightness, dizziness Eyes: Denies change in vision double vision blurry vision Cardiovascular: Denies chest pain or palpitations Respiratory: Complains of coughing and shortness of breath as noted above denies wheezing Abdomen: Denies abdominal pain nausea vomit diarrhea : Denies any urinary symptoms Neurological: Denies numbness, weakness, tingling Musculoskeletal: Denies back pain Skin: Denies rashes or lesions EXAM Physical Exam Narrative Exam Narrative: General: Patient lying in bed rest comfortably did not appear to be acute distress Head: Atraumatic, normocephalic Eyes: PERRL bilateral, EOMI biotic no conjunctival injection noted Neck: Soft, supple, trach midline Cardiovascular: Patient had a regular rate but irregular rhythm no murmurs gallops rubs noted Respiratory: Patient has end expiratory wheezing noted on exam bilaterally Abdomen: Soft, nondistended, nontender to palpation, bowel sounds present x 4 Extremities: Patient has 2+ pitting edema in the bilateral lower extremities, radial pulses +2/4 in the bilateral upper extremities Neurological: Patient is following commands knew that he was at [facility] years 2023 Skin: Warm, dry, intact Const Vital Signs: 04/22/24 16:44 04/22/24 16:47 04/22/24 17:06 Temperature 97.8 F 97.8 F Temperature Source Oral Temporal Pulse Rate 95 91 Respiratory Rate 24 H 21 H Respiratory Effort Respiratory Pattern Blood Pressure 167/87 H 152/89 H Blood Pressure Mean 113 110 Pulse Ox 93 93 Oxygen Delivery Method Nasal Cannula Nasal Cannula Nasal Cannula Oxygen Flow Rate (L/min) 4 4 3 04/22/24 17:08 04/22/24 17:20 04/22/24 18:00 Temperature 97 F L Temperature Source Temporal Pulse Rate 82 94 Respiratory Rate 18 22 H Respiratory Effort Short of Breath Respiratory Pattern Tachypnea Normal Blood Pressure 148/78 H Blood Pressure Mean 101 Pulse Ox 96 Oxygen Delivery Method Oxygen Flow Rate (L/min) MDM MDM MDM Narrative Medical decision making narrative: Patient is a 78-year-old male who presents to the emergency department with a chief complaint of cough and shortness of breath with a recent pneumonia. Patient will have a workup performed here on the differential diagnose includes but not limited to ACS, pneumonia, CHF exacerbation. Once workup is obtained reviewed he will be reevaluated. Patient will be given DuoNebs and prednisone Patient's echocardiogram from 10/19/2021 was reviewed as well which showed an ejection fraction of 50% at that point in time with moderate to severe tricuspid valve insufficiency with a pulmonary artery systolic pressure of 90 mmHg suggesting severe pulmonary hypertension Patient CBC reviewed and showed no evidence leukocytosis white blood count was normal at 8.4, hemoglobin stable 13.9, platelet count was noted to be 131. Patient's sodium normal 137, potassium normal at 4.8, creatinine was noted to be at 1.46 he does have chronic kidney disease which appears to be around his baseline. Patient's troponin normal at 36. Patient's EKG was reviewed and independently interpreted by myself which showed atrial fibrillation with a rate of 94 bpm. Patient proBNP was elevated to 40. Patient's chest x-ray was reviewed by myself and by radiology which showed cardiomegaly with no other acute cardiopulmonary processes. At this point time do believe the patient will warrant admission for COPD exacerbation for pneumonia versus CHF. Patient will be given azithromycin and Rocephin as well as 40 mg of IV Lasix. Patient case will be discussed with hospitalist. Discussed case with hospitalist Dr. Prather who accept the patient for admission. Patient was notified as well as family members at bedside they are agreeable with this plan all question concerns were answered. Lab Data Labs: Laboratory Results - last 24 hr 04/22/24 17:00 WBC 8.4 RBC 4.65 Hgb 13.9 Hct 43.1 MCV 92.7 MCH 29.9 MCHC 32.3 RDW Std Deviation 51.3 H RDW Coeff of [place] 15.1 H Plt Count 131 L MPV 10.5 Immature Gran % (Auto) 2.200 H Neut % (Auto) 88.6 H Lymph % (Auto) 4.4 L [place] % (Auto) 4.1 Eos % (Auto) 0.1 Baso % (Auto) 0.6 Absolute Neuts (auto) 7.4 Absolute Lymphs (auto) 0.37 L Nucleated RBC % 0 Sodium 137 Potassium 4.8 Chloride 108 H Carbon Dioxide 26.0 Anion Gap 3 L BUN 26 H Creatinine 1.46 H Estim Creat Clear Calc 56.36 Est GFR (MDRD) Af Amer 60 Est GFR (MDRD) Non-Af 50 L BUN/Creatinine Ratio 17.8 Glucose 177 H Calcium 9.2 Troponin I High Sens 36 B-Natriuretic Peptide 240.5 H Radiography Diagnostic Testing: Clinical Impression(s) from Imaging Studies Chest X-Ray 04/22/24 17:11 IMPRESSION: Cardiomegaly with no acute pulmonary abnormality. Electronically Signed: Henry Fang MD at 17:40 EST , Discharge Plan Triage Chief Complaint: Shortness of Breath ED Provider: Anatoliy Joshi Dx/Rx/DC Orders Clinical Impression: COPD exacerbation Prescriptions: No Action cholecalciferol (vitamin D3) 5,000 unit capsule 5,000 unit PO DAILY rosuvastatin 20 mg tablet 20 mg PO DAILY clindamycin phosphate 1 % solution topical diclofenac sodium 1 % gel topical folic acid 1 MG tablet 1 mg PO DAILY@1200 docusate sodium 100 mg capsule 100 mg PO BID Rx Instructions: noon and bedtime pramipexole 0.5 MG tablet 0.5 mg PO TID ferrous sulfate 325 MG tablet 65 mg PO DAILY PreserVision AREDS 2,148 mcg-113 mg-45 mg-17.4mg tablet 1 tab PO BID cyanocobalamin (vitamin B-12) 1,000 MCG/ML solution 1,000 mcg IM Q30D trazodone 50 mg Tablet 50 mg PO QHS Rhinase 15-0.17-20-0.22 % Gel 1 ea INTRANASAL PRN PRN (Reason: DRY NOSE) albuterol sulfate [Ventolin HFA] 90 mcg/actuation HFA aerosol inhaler 1 - 2 puff inhalation Q4H PRN PRN (Reason: Wheezing) Qty: 1 0RF metoprolol succinate 100 mg tablet extended release 24 hr 100 mg PO DAILY Qty: 90 3RF gabapentin 600 mg tablet 1,200 mg PO QHS Trelegy Ellipta 100-62.5-25 mcg blister with device 1 inh inhalation DAILY Qty: 3 3RF amlodipine 5 mg tablet 5 mg PO DAILY Qty: 90 3RF losartan 50 mg tablet 50 mg PO BID Qty: 180 3RF Primary Care Provider: Fany Hobson Referrals: Fany Hobson DO [Primary Care Provider] - Print Language: Arabic Disposition Disposition: Acute Care Hospital [facility]
--- NOTE | 2024-04-22 17:11 | RAD_ITS ---
EXAM: XR CHEST, 2 VIEWS CLINICAL INDICATION: chest pain TECHNIQUE: Frontal and lateral views of the chest. COMPARISON: 04/16/2024 FINDINGS: LUNGS AND PLEURAL SPACES: Unremarkable. No consolidation or edema. No pneumothorax. No effusion. HEART: Cardiac silhouette is enlarged in size. MEDIASTINUM: Central airways and mediastinal contour are unremarkable. BONES/JOINTS: Median sternotomy wires are present. No acute fracture. SOFT TISSUES: Unremarkable. TUBES, LINES AND DEVICES: Right-sided Port-A-Cath is in stable position. RAD/Chest PA and Lateral IMPRESSION: Cardiomegaly with no acute pulmonary abnormality. Electronically Signed: Henry Fang MD at 17:40 EST ,
[2024-04-22 17:17] LABS: Absolute Lymphocyte Count 0.37 X10^3/uL (0.83-4.51); Absolute Neutrophil Count 7.4 X10^3/uL (2.0-7.7); Basophil# 0.05 X10^3/uL; Basophil% 0.6 % (0-1); Eosinophil# 0.01 X10^3/uL; Eosinophils% 0.1 % (0-5); Hematocrit 43.1 % (40-54); Hemoglobin 13.9 g/dL (13.0-16.5); Lymphocyte # 0.37 X10^3/ul (0.83-4.51); Lymphocyte % 4.4 % (19-41); Mean Corp Hgb Conc 32.3 g/dL (32-36); Mean Corpuscular Hgb 29.9 pg (27.0-32.0); Mean Corpuscular Volume 92.7 fL (80-94); Mean Platelet Vol. 10.5 fl (6.2-12.0); Monocyte# 0.34 X10^3/uL; Monocyte% 4.1 % (0-10); NRBC Flagged by Analyzer 0 % (0-5); Neutrophil # 7.41 X10^3/uL (2.7-7.7); Neutrophil % 88.6 % (47-70); POSITIVE DIFFERENTIAL YES; Platelet Count 131 K/mm3 (150-450); RBC Distribution Width CV 15.1 % (11.6-14.6); RBC Distribution Width SD 51.3 fl (35.1-43.9); Red Blood Count 4.65 M/mm3 (4.6-6.2); White Blood Count 8.4 K/mm3 (4.4-11.0)
[2024-04-22] MEDS: Ipratropium/Albuterol Sulfate 3 ML AMPUL.NEB INHALATION (17:20)
[2024-04-22] MEDS: predniSONE 20 MG Tablet 60 MG PO (17:20)
[2024-04-22 17:31] LABS: Anion Gap 3 (5-15); BUN 26 mg/dL (7-18); BUN/Creat Ratio 17.8 RATIO (10-20); Calcium,Total 9.2 mg/dL (8.5-10.1); Chloride 108 mmol/L (98-107); Creatinine, Serum 1.46 mg/dL (0.70-1.30); EST Glomerular Filtration Rate 50 mL/min (>60); Est Glom Filt Rate - Afr Amer 60 mL/min (>60); Estimated Creatinine Clearance 56.36 ml/min; Glucose 177 mg/dL (74-106); Potassium 4.8 mmol/L (3.5-5.1); Sodium Level 137 mmol/L (136-145); Troponin-I HS 36 pg/mL (3.0-78.0)
[2024-04-22 17:53] LABS: BNP,B-Type NATRIURETIC PEPTIDE 240.5 pg/mL (0-100)
[2024-04-22] MEDS: Furosemide 40 MG/4 ML Vial IV (18:44)
[2024-04-22] MEDS: Ceftriaxone 1 GM/50 ML BAG IV (18:44)
--- NOTE | 2024-04-22 18:59 | HP.PCM.HOS_ITS ---
HPI - General General Date of Admission: 04/22/24 Date of Service: 04/22/24 Chief Complaint: Increasing SOB HPI Narrative JV DURHAM, is a 78 y/o M hx cad s/p CABG, lung cancer status post VATS resection and chemo in remission, COPD on 4 L nasal cannula, chronic heart failure preserved ejection fraction, pulmonary hypertension, CKD, HEBER, A-fib, hypertension, lung cancer in remission who presented [facility] ED 04/22/2024 due to worsening cough and shortness of breath.? On Friday he was seen for cough and given antibiotics and steroids and over the weekend he initially was doing better but on Friday he started to worsen again and now can barely walk short distance without becoming short of breath.? He has had increased use of inhalers at home.? In the ED patient with increased work of breathing and dyspneic, chest x-ray no acute process, BNP slightly elevated at 240 and patient found to be flu a positive.? Given IV Lasix and treated with steroids and nebs, felt to have COPD exacerbation secondary to influenza A.? Hospitalist contacted for admission. Patient evaluated with daughter at bedside. Patient reports that he has been feeling unwell since Friday, does report the productive cough with increased shortness of breath that initially improved but since Friday he has had difficulty lying flat to sleep and with any exertion, has had some swelling in his lower extremities as well. Used to be on Lasix but was taken off due to his CKD and has not taken it in a couple months and has been unable to weigh himself over the past few days due to how short of breath he has become. He also reports he has not had a bowel movement in a week and a half which is abnormal for him. He is not necessarily having any abdominal pain, said he might feel sick to his stomach at times but it is hard to determine if that is the case or he just feels unwell overall. Urinates frequently. No new rashes or bleeding. Does have neuropathy. Does not note any measured fever. [facility] Medical History History of lung cancer Adrenal mass History of Parkinson's disease History of atrial fibrillation Hx of cancer of lung Pulmonary hypertension Emphysema, unspecified History of echocardiogram History of stress test Hypertension History of atrial fibrillation Hx of fracture of ankle COVID Chronic combined systolic and diastolic CHF (congestive heart failure) Severe pulmonary arterial systolic hypertension Wears glasses Uses wheelchair Walker as ambulation aid Ambulates with cane Arthritis Anemia Migraine headache Injury of head and neck Parkinson's disease Gastric reflux Former smoker BiPAP (biphasic positive airway pressure) dependence COPD (chronic obstructive pulmonary disease) On home oxygen therapy History of pain when walking History of edema Amputated great toe of left foot Amputation of one or more toes Chronic ulcer of left foot with fat layer exposed Hammer toe of left foot Toe osteomyelitis Right ventricular dilation, secondary Right ventricular systolic dysfunction Respiratory failure with hypoxia Diverticular disease Polyp of colon, adenomatous Chronic gastritis Multiple premature ventricular complexes Longstanding persistent atrial fibrillation Hyperlipidemia Acute kidney injury NSTEMI (non-ST elevated myocardial infarction) (12/02/19) Sepsis Gastric AVM Adenocarcinoma of lung, stage 1 GI bleed Iron deficiency anemia due to chronic blood loss Atherosclerosis of coronary artery of [place] heart without angina pectoris Cancer of upper lobe of left lung 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 Benign essential hypertension HEBER (obstructive sleep apnea) Dementia Parkinsons Essential tremor GERD (gastroesophageal reflux disease) Alcohol dependence Home Medications ?Medication ?Instructions ?Recorded ?Last Taken ?Type folic acid 1 mg tablet 1 mg PO DAILY@1200 supplement 05/06/13 07/14/20 History pramipexole 0.5 mg tablet 0.5 mg PO TID parkinsons 12/04/16 10/06/20 History docusate sodium 100 mg capsule 100 mg PO BID bowels 10/20/17 07/14/20 History ferrous sulfate 325 mg (65 mg 65 mg PO DAILY supplement 02/01/19 07/14/20 History iron) tablet cholecalciferol (vitamin D3) 125 5,000 unit PO DAILY cholesterol 03/30/19 07/14/20 History mcg (5,000 unit) capsule cyanocobalamin (vitamin B-12) 1,000 mcg IM Q30D suppliment 03/10/20 06/30/20 History 1,000 mcg/mL injection solution peg 15 %-potass chl 0.17 %-propyl 1 ea intranasal PRN PRN DRY NOSE 03/21/21 Unknown History gly 20 %-sodium chl 0.22 % nasal gel (Rhinase) trazodone 50 mg tablet 50 mg PO QHS sleep 03/21/21 Unknown History rosuvastatin 20 mg tablet 20 mg PO DAILY cholesterol 03/05/22 Unknown History vitamins A,C,U-rbzz-svxsgh 2,148 1 tab PO BID eye health 03/27/22 Unknown History mcg-113 mg-45 mg-17.4 mg tablet (PreserVision AREDS) albuterol sulfate 90 mcg/actuation 1 - 2 puff inhalation Q4H PRN PRN 06/21/23 Unknown Rx aerosol inhaler (Ventolin HFA) Wheezing #1 ea metoprolol succinate 100 mg 100 mg PO DAILY bp,heart #90 tabs 08/18/23 Unknown Rx tablet,extended release 24 hr gabapentin 600 mg tablet 1,200 mg PO QHS nerve pain 09/23/23 Unknown History fluticasone fur. 100 mcg-umeclid 1 inh inhalation DAILY dm #3 ea 09/29/23 Unknown Rx 62.5 mcg-vilant 25 mcg inhalat.powder (Trelegy Ellipta) clindamycin phosphate 1 % topical topical 11/06/23 Unknown History solution diclofenac sodium 1 % topical gel topical 11/06/23 Unknown History amlodipine 5 mg tablet 5 mg PO DAILY htn #90 tabs 12/11/23 Unknown Rx losartan 50 mg tablet 50 mg PO BID #180 TABLETS 03/19/24 Unknown Rx Allergy/AdvReac Type Severity Reaction Status Date / Time No Known Allergies Allergy Verified 04/22/24 16:46 Family History Sister Alcoholism Cancer Mother Arthritis Father Arthritis Brother Cancer Surgical History History of transurethral resection of prostate Hx of toe surgery SURGICAL REMOVAL LEFT GREAT TOE History of right and left heart catheterization (12/04/16) History of colonoscopy (03/22/20) History of esophagogastroduodenoscopy (03/22/20) History of left heart catheterization (2016) History of coronary artery stent placement (12/23/06) Status post insertion of iliac artery stent (08/04/12) Status post surgical removal of neoplasm of skin History of tonsillectomy and adenoidectomy History of hammer toe correction History of open reduction and internal fixation (ORIF) procedure History of open reduction and internal fixation (ORIF) procedure History of lobectomy of lung History of cardioversion (12/2016) H/O coronary artery bypass surgery (02/14/06) Social History Smoking Status: Former smoker quit date: 11/14/93 how long ago did patient quit smokin years ago second hand exposure: No alcohol intake: current alcohol intake frequency: holidays/special occasions only Alcohol type: wine substance use type: does not use caffeine: Yes Type: coffee Number of servings: 1 what type of physical activity do you participate in: none frequency: does not exercise seatbelt use: always ROS ROS Narrative General: Does not note measured fever or chills HENT: Denies sore throat 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, 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 Resp: Increasing cough and sputum, increasing shortness of breath Cardiac: Denies chest pain GI: Denies abdominal pain, he is unsure if he has been nauseous, has not had bowel movement in a week and a half which is abnormal for him : Urinates often which is unchanged Extremity: Some increased swelling in lower extremities MSK: Denies weakness Neuro: Chronic tingling lower extremities Heme: Denies any bleeding or bruising Skin: Denies rashes Psychiatric: No complaints voiced Vital Signs Vital Signs Vital Signs: 04/22/24 16:44 04/22/24 16:47 04/22/24 17:06 Temperature 97.8 F 97.8 F Temperature Source Oral Temporal Pulse Rate 95 91 Respiratory Rate 24 H 21 H Respiratory Effort Respiratory Pattern Blood Pressure 167/87 H 152/89 H Blood Pressure Mean 113 110 Pulse Ox 93 93 Oxygen Delivery Method Nasal Cannula Nasal Cannula Nasal Cannula Oxygen Flow Rate (L/min) 4 4 3 04/22/24 17:08 04/22/24 17:20 04/22/24 18:00 Temperature 97 F L Temperature Source Temporal Pulse Rate 82 94 Respiratory Rate 18 22 H Respiratory Effort Short of Breath Respiratory Pattern Tachypnea Normal Blood Pressure 148/78 H Blood Pressure Mean 101 Pulse Ox 96 Oxygen Delivery Method Oxygen Flow Rate (L/min) Weight Weight: 129.4 kg Body Mass Index (BMI) 40.9 Physical Exam Narrative General: Alert, oriented HEENT: Atraumatic, normocephalic Eyes: Anicteric, normal conjunctiva, extraocular movements grossly intact Neck: Supple Respiratory: Increased respiratory effort, diffuse wheezing with some crackles at the bases Cardiovascular: Irregularly irregular GI: Nontender, no rebound, guarding, rigidity Extremities: 1-2+ lower extremity edema Musculoskeletal: Moving all extremities Neuro: No overt focal neurological deficits Skin: No rashes appreciated Psych: Cooperative Results Lab / Micro Data 04/22/24 17:00 04/22/24 17:00 Labs: Laboratory Results - last 24 hr 04/22/24 17:00: WBC 8.4, RBC 4.65, Hgb 13.9, Hct 43.1, MCV 92.7, MCH 29.9, MCHC 32.3, RDW Std Deviation 51.3 H, RDW Coeff of Iram 15.1 H, Plt Count 131 L, MPV 10.5, Immature Gran % (Auto) 2.200 H, Neut % (Auto) 88.6 H, Lymph % (Auto) 4.4 L , [place] % (Auto) 4.1, Eos % (Auto) 0.1, Baso % (Auto) 0.6, Absolute Neuts (auto) 7.4, Absolute Lymphs (auto) 0.37 L, Nucleated RBC % 0, Sodium 137, Potassium 4.8, Chloride 108 H, Carbon Dioxide 26.0, Anion Gap 3 L, BUN 26 H, Creatinine 1.46 H, Estim Creat Clear Calc 56.36, Est GFR (MDRD) Af Amer 60, Est GFR (MDRD) Non-Af 50 L, BUN/Creatinine Ratio 17.8, Glucose 177 H, Calcium 9.2, Troponin I High Sens 36, B-Natriuretic Peptide 240.5 H Micro: Microbiology 04/22/24 17:20 Mucosa - Nose SARS-CoV-2, Influenza & RSV (PCR) - Final Influenzae A Imaging Radiology Impression Chest X-Ray 04/22/24 17:11 IMPRESSION: Cardiomegaly with no acute pulmonary abnormality. Electronically Signed: Henry Fang MD at 17:40 EST , Assessment & Plan Assessment/Plan (1) COPD exacerbation: PLAN: Plan # Increased shortness of breath secondary to COPD exacerbation with chronic hypoxic respiratory failure on 4 L home O2 secondary to influenza A -Admit to floor, continuous O2 monitoring -Chest x-ray: With no acute process though on review of the film possibly some vascular congestion -PFTs in 2020 with irreversible moderately severe large airway defect -Follows with pulmonology in the office and was last seen 11/06/2023, outpatient note reviewed -Patient fluid positive, start oseltamavir -O2 in place -IV methylprednisone -Scheduled DuoNebs -Albuterol prn -Incentive spirometer -Mucinex -Azithro d/t having 3/3 criteria for exacerbation even w/ flu positive # Suspect component of fluid overload due to chronic heart failure with preserved ejection fraction/pulmonary hypertension -Follows with cardiology in the office, last seen 09/23/2023, note reviewed -Patient had been on Lasix 40 mg twice daily but is not presently on this which may account for the component of fluid overload -BNP slightly elevated at 240 -CXR no acute process but poorly penetrated and on review of the film possibly some vascular congestion and patient with peripheral edema -Continue IV lasix -Last echo 10/19/2021 with EF of 50% and mild concentric LVH as well as 3+ tricuspid valve insufficiency and PASP of 90 mmHg -Repeat echo ordered -Daily weights, I's and O's -Fluid restriction, heart healthy diet # History of coronary artery disease status post CABG and stent -Continue statin, continue beta-zita -Patient is not taking aspirin and he is not on a blood thinner for his A-fib either and he is unsure why, this will ultimately need to be clarified # CKD stage III a -Appears to be at baseline -Avoid nephrotoxic agents -Daily BMPs #HEBER -Continue home NIPPV # Atrial fibrillation -Not on home anticoagulation, patient unsure why this was discontinued -Continue beta-zita #Hypertension -Continue home medications, patient thinks current medication list is up-to-date in our system some medications were continued based on this however he ultimately will provide a list so that this can be compared to, may need adjustments once list is verified # History of left-sided lung cancer -With previous VATS/removal and 4 cycles of Alimta -Currently in remission -Follows with [facility] #Morbid obesity -BMI documented as 40.9 kg/m? at time of admission -Complicates treatment, prognosis, outcomes -Recommend weight loss and lifestyle changes # Parkinson's disease -Continue ropinirole, patient has 0.5 3 times daily on med list, will continue but may need adjusted if dose is changed once med rec completed #Hypothyroidism -Continue Synthroid-Appears patient is feeling 50 mcg of Synthroid on external fill, will continue this #DVT ppx: Lovenox subcu Zarina Prather MD Time spent in the patient's overall evaluation, decision-making process, review of diagnostic data, adjustment of management, discussion with other providers, nursing and ancillary staff involved in patient's care documentation, 77 Minutes Charges/Coding Visit Charges Inpatient E&M: 73647 Init Hosp L3
[2024-04-22] MEDS: Azithromycin 500 MG in Dextrose 5%-Water (250mL Bag) 250 ML 250 MG IV (19:08)
--- NOTE | 2024-04-22 19:57 | ECHOD_ITS ---
Reason For Study: DYSPNEA Procedure This was a 2D Doppler, Color Flow transthoracic echocardiogram. The study was technically difficult. Definity deferred due to pulmonary pressures. Exam performed portable in patient room. Left Ventricle Normal LV size. Mild eccentric left ventricular hypertrophy. D shaped septum in systole and diastole. Left ventricular systolic function is normal. The estimated ejection fraction is 60 %. Unable to assess diastolic dysfunction due to arrhythmia. Right Ventricle Moderately dilated right ventricle. Mild global right ventricular systolic dysfunction. Atria The left atrium is moderately enlarged. The right atrium is moderately enlarged. Mitral Valve Normal mitral valve. Mild-Moderate (1-2+) mitral valve insufficiency. Tricuspid Valve Normal tricuspid valve. Moderate (2+) tricuspid valve insufficiency. Pulmonary artery systolic pressure is 84 mmHg. Severe pulmonary hypertension. Aortic Valve Trisinus/trileaflet aortic valve. Mild focal aortic valve calcification. Aortic sclerosis, no stenosis. Pulmonic Valve Normal pulmonic valve. Mild (1+) pulmonic valve insufficiency. Great Vessels Mild atherosclerosis of the ascending aorta. Pericardium/Pleural No pericardial effusion. MMode/2D Measurements & Calculations LVIDd: 5.5 cm IVSd: 1.0 cm LVOT diam: 2.0 cm LVIDs: 4.4 cm LVPWd: 1.3 cm LVOT area: 3.2 cm2 RVDd: 4.8 cm FS: 20.0 % LAV(MOD-bp): 76.7 ml LA A4 area: 27.9 cm2 LA dimension(2D): 4.4 cm LAV(MOD-bp) Indexed: 31.8 ml/m2 LAV(MOD-sp2): 57.8 ml LAV(MOD-sp4): 89.0 ml RA A4 area: 30.6 cm2 Doppler Measurements & Calculations MV E max sanjuana: 98.2 cm/sec Ao V2 max: 162.0 cm/sec LV V1 max: 120.2 cm/sec Ao max P.5 mmHg LV V1 max P.8 mmHg Ao V2 mean: 97.2 cm/sec LV V1 mean P.8 mmHg Ao mean P.9 mmHg LV V1 mean: 75.6 cm/sec Ao V2 VTI: 33.2 cm LV V1 VTI: 25.5 cm AV (velocity ratio): 0.77 PELON(I,D): 2.5 cm2 PELON(V,D): 2.4 cm2 SV(LVOT): 82.5 ml TR max sanjuana: 416.2 cm/sec TR max P.3 mmHg ECHO/Echo Complete Interpretation Summary The estimated ejection fraction is 60 %. Moderately dilated right ventricle. Mild global right ventricular systolic dysfunction. The left atrium is moderately enlarged. The right atrium is moderately enlarged. Mild-Moderate (1-2+) mitral valve insufficiency. Severe pulmonary hypertension. Moderate (2+) tricuspid valve insufficiency. Aortic sclerosis, no stenosis. The study was technically difficult. Ordering Physician: Zarina Prather Referring Physician: GLORIA ALVARADO Performed By: Erlinda Byrne RCS
[2024-04-22] MEDS: Losartan Potassium 50 MG Tablet PO (20:39)
[2024-04-22] MEDS: Oseltamivir Phosphate 75 MG Capsule PO (20:39)
[2024-04-22] MEDS: Senna/Docusate Sodium 1 Tablet 2 TABLET PO (20:40)
[2024-04-22] MEDS: Pramipexole Di-HCl 0.5 MG Tablet PO (20:40)
[2024-04-22] MEDS: guaiFENesin 1,200 MG Tablet 1200 MG PO (20:40)
[2024-04-22] MEDS: Enoxaparin 40 MG/0.4 ML Syringe SC (20:40)
[2024-04-22] MEDS: Acetaminophen 325 MG Tablet 650 MG PO (20:51)
[2024-04-22] MEDS: MELATONIN 3 MG TABLET PO (20:51)
[2024-04-23] VITALS (14 sets, daily range): BP systolic 127–154; BP diastolic 56–88; PULSE 73–90; RESP 18–24; TEMP 35.9–36.4; O2SAT 92–97; BMI 38.2
[2024-04-23] MEDS: Pramipexole Di-HCl 0.5 MG Tablet PO ×3 (05:25→20:20)
[2024-04-23] MEDS: Levothyroxine 50 MCG Tablet PO (05:25)
[2024-04-23] MEDS: Polyethylene Glycol 3350 17 GM PACKET PO (05:41)
[2024-04-23] MEDS: Ipratropium/Albuterol Sulfate 3 ML AMPUL.NEB INHALATION ×5 (07:02→23:50)
[2024-04-23 08:00] LABS: Absolute Lymphocyte Count 0.36 X10^3/uL (0.83-4.51); Absolute Neutrophil Count 6.6 X10^3/uL (2.0-7.7); Basophil# 0.02 X10^3/uL; Basophil% 0.3 % (0-1); Hematocrit 40.1 % (40-54); Lymphocyte # 0.36 X10^3/ul (0.83-4.51); Lymphocyte % 4.9 % (19-41); Mean Corp Hgb Conc 32.4 g/dL (32-36); Mean Corpuscular Hgb 29.5 pg (27.0-32.0); Mean Corpuscular Volume 90.9 fL (80-94); Mean Platelet Vol. 10.8 fl (6.2-12.0); Monocyte# 0.19 X10^3/uL; Monocyte% 2.6 % (0-10); NRBC Flagged by Analyzer 0 % (0-5); Neutrophil # 6.64 X10^3/uL (2.7-7.7); Neutrophil % 90.6 % (47-70); POSITIVE DIFFERENTIAL YES; Platelet Count 143 K/mm3 (150-450); RBC Distribution Width CV 14.8 % (11.6-14.6); RBC Distribution Width SD 49.3 fl (35.1-43.9); Red Blood Count 4.41 M/mm3 (4.6-6.2); White Blood Count 7.3 K/mm3 (4.4-11.0)
--- NOTE | 2024-04-23 08:28 | PN.HOSP_ITS ---
Reason for Visit Reason for Visit: Diagnoses Chronic obstructive pulmonary disease with (acute) exacerbation (04/22/24) Objective Data Objective Data Vital Signs: Vital Signs Temp Pulse Resp BP Pulse Ox O2 Del Method O2 Flow Rate 96.7 F L 75 18 154/88 H 97 Nasal Cannula 4 04/23/24 05:46 04/23/24 05:46 04/23/24 05:46 04/23/24 05:46 04/23/24 05:46 04/23/24 05:46 04/23/24 05:46 Oxygen Flow Rate (L/min) 4 Oxygen Delivery Method Nasal Cannula Weight: 266 lb 12.149 oz Body Mass Index (BMI) 38.2 Intake & Output: Intake and Output for Last 24 Hours 04/21/24 04/22/24 04/23/24 23:59 23:59 23:59 Intake Total 305 / 785 720 / 720 Output Total 1200 / 1200 Balance 305 / -215 -480 / -480 Lab / Micro Data 04/23/24 06:28 04/23/24 06:28 Labs: Laboratory Results - last 24 hr 04/22/24 17:00: WBC 8.4, RBC 4.65, Hgb 13.9, Hct 43.1, MCV 92.7, MCH 29.9, MCHC 32.3, RDW Std Deviation 51.3 H, RDW Coeff of Iram 15.1 H, Plt Count 131 L, MPV 10.5, Immature Gran % (Auto) 2.200 H, Neut % (Auto) 88.6 H, Lymph % (Auto) 4.4 L , [place] % (Auto) 4.1, Eos % (Auto) 0.1, Baso % (Auto) 0.6, Absolute Neuts (auto) 7.4, Absolute Lymphs (auto) 0.37 L, Nucleated RBC % 0, Sodium 137, Potassium 4.8, Chloride 108 H, Carbon Dioxide 26.0, Anion Gap 3 L, BUN 26 H, Creatinine 1.46 H, Estim Creat Clear Calc 56.36, Est GFR (MDRD) Af Amer 60, Est GFR (MDRD) Non-Af 50 L, BUN/Creatinine Ratio 17.8, Glucose 177 H, Calcium 9.2, Troponin I High Sens 36, B-Natriuretic Peptide 240.5 H 04/23/24 06:28: WBC 7.3, RBC 4.41 L, Hgb 13.0, Hct 40.1, MCV 90.9, MCH 29.5, MCHC 32.4, RDW Std Deviation 49.3 H, RDW Coeff of Iram 14.8 H, Plt Count 143 L, MPV 10.8, Immature Gran % (Auto) 1.600 H, Neut % (Auto) 90.6 H, Lymph % (Auto) 4.9 L, [place] % (Auto) 2.6, Eos % (Auto) 0.0, Baso % (Auto) 0.3, Absolute Neuts (auto) 6.6, Absolute Lymphs (auto) 0.36 L, Nucleated RBC % 0 Micro: Microbiology 04/22/24 17:20 Mucosa - Nose SARS-CoV-2, Influenza & RSV (PCR) - Final Influenzae A Radiography Diagnostic Testing: Radiology Impression Chest X-Ray 04/22/24 17:11 IMPRESSION: Cardiomegaly with no acute pulmonary abnormality. Electronically Signed: Henry Fang MD at 17:40 EST , Physical Exam Narrative Seen and examined. Patient has history of persistent A-fib, chronic combined systolic failure, pulmonary arterial hypertension, atherosclerotic heart disease status post stent, COPD and lung cancer. 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 Batista, oncologist Dr. Millan and reproduction machine loader Dr. Storm. Patient states he is sick with cough, shortness of breath progressively worsening for 1 week. Has thin and whitish sputum. No fever Physical exam General: Alert, Oriented x3, Cooperative, obesity grade 2 BMI 38.3 kg/m?. HEENT: Atraumatic, PERRLA, EOMI, Normocephalic Oral: No Gingival or Mucosal Lesions/ Ulcerations Neck: Supple, No JVD, Negative Carotid Bruits Chest wall/Lungs: Air entry diminished in bilateral lung bases. Bilateral coarse crepitations and rhonchi Cardiovascular: irregular rhythm, A-fib, Normal S1, Normal S2, systolic murmur Abdomen: Bowel Sounds Present, Soft, Non Tender, Non-Distended : No dysuria. No renal angle tenderness. No suprapubic tenderness. Extremities: Mild pitting edema, Capillary Refill Less than 3 Seconds Skin: No rashes, No breakdown Musculoskeletal: No Tenderness to Palpation of Joints or Extremities Neurological: Cranial nerves II-XII grossly intact, DTR 2+/4. No acute focal neurological deficit. Psych/Mental Status: Flat affect Assessment & Plan Assessment/Plan (1) COPD exacerbation: PLAN: Plan 78-year-old gentleman was admitted with SOB, cough, feeling weak for about 1 week. History of COPD on 4 L of home oxygen, lung cancer and A-fib. Patient had cough and was seen by physician on Friday given antibiotics probably amoxicillin and steroid, initially felt better but turned worse/downhill 2 days ago. Dyspnea on mild exertion on walking short distance. Increase the frequency of his inhalers. # Increased shortness of breath secondary to COPD exacerbation with chronic hypoxic respiratory failure on 4 L home O2 secondary to influenza A -Admit to floor, continuous O2 monitoring -Chest x-ray: Individually reviewed shows mild pulmonary venous congestion but no consolidation -PFTs in 2020 with irreversible moderately severe large airway defect -Follows with pulmonology in the office and was last seen 11/06/2023, outpatient note reviewed -Patient flu positive, start oseltamavir -O2 in place -IV methylprednisone -Scheduled DuoNebs -Albuterol prn -Incentive spirometer -Mucinex -Azithro for COPD exacerbation 04/23: Overall patient feeling better than yesterday. # Suspect component of fluid overload due to chronic heart failure with preserved ejection fraction/pulmonary hypertension -Follows with cardiology in the office, last seen 09/23/2023, note reviewed -Patient had been on Lasix 40 mg twice daily but is not presently on this which may account for the component of fluid overload -BNP slightly elevated at 240 -Continue IV lasix -Last echo 10/19/2021 with EF of 50% and mild concentric LVH as well as 3+ tricuspid valve insufficiency and PASP of 90 mmHg -Repeat echo ordered Heart failure core measures including intake and output, fluid restriction less than 1500 mL, daily weight monitoring, kidney and electrolytes monitoring. # History of coronary artery disease status post CABG and stent -Continue statin, continue beta-zita -Patient is not taking aspirin and he is not on a blood thinner for his A-fib either and he is unsure why, this will ultimately need to be clarified # CKD stage III a -Appears to be at baseline -Avoid nephrotoxic agents -Daily BMPs 04/23: Creatinine is similar with no change. #HEBER -Continue home NIPPV # Atrial fibrillation -Not on home anticoagulation, patient unsure why this was discontinued -Continue beta-zita #Hypertension -Continue home medications, patient thinks current medication list is up-to-date in our system some medications were continued based on this however he ultimately will provide a list so that this can be compared to, may need adjustments once list is verified # History of left-sided lung cancer -With previous VATS/removal and 4 cycles of Alimta -Currently in remission -Follows with [facility] oncology, Dr. Lewis #Morbid obesity -BMI documented as 40.9 kg/m? at time of admission -Complicates treatment, prognosis, outcomes -Recommend weight loss and lifestyle changes # Parkinson's disease -Continue ropinirole, patient has 0.5 3 times daily on med list, will continue but may need adjusted if dose is changed once med rec completed #Hypothyroidism -Continue Synthroid-Appears patient is feeling 50 mcg of Synthroid on external fill, will continue this #DVT ppx: Lovenox subcu Charges/Coding Visit Charges Inpatient E&M: 80935 Subs Hosp L2
[2024-04-23 09:03] LABS: Anion Gap 6 (5-15); BUN 26 mg/dL (7-18); BUN/Creat Ratio 17.8 RATIO (10-20); Calcium,Total 8.6 mg/dL (8.5-10.1); Chloride 106 mmol/L (98-107); Cholesterol 107 mg/dL (200); Creatinine, Serum 1.46 mg/dL (0.70-1.30); EST Glomerular Filtration Rate 50 mL/min (>60); Est Glom Filt Rate - Afr Amer 60 mL/min (>60); Estimated Creatinine Clearance 54.38 ml/min; Glucose 161 mg/dL (74-106); High Density Lipoprotein 63 mg/dL; Magnesium 2.6 mg/dL (1.6-2.6); Potassium 3.9 mmol/L (3.5-5.1); Sodium Level 140 mmol/L (136-145); Thyroid Stim Hormone (TSH) 0.654 uIU/mL (0.358-3.740); Triglycerides 76 mg/dL; Very Low Density Lipoprotein 15 mg/dL (5-40)
[2024-04-23] MEDS: Metoprolol(XL)Succ 100 MG Tablet PO (09:38)
[2024-04-23] MEDS: Enoxaparin 40 MG/0.4 ML Syringe SC ×2 (09:38→20:20)
[2024-04-23] MEDS: Senna/Docusate Sodium 1 Tablet 2 TABLET PO ×2 (09:38→20:19)
[2024-04-23] MEDS: Azithromycin 250 MG Tablet 500 MG PO (09:38)
[2024-04-23] MEDS: Oseltamivir Phosphate 30 MG Capsule PO ×2 (09:38→20:20)
[2024-04-23] MEDS: guaiFENesin 1,200 MG Tablet 1200 MG PO ×2 (09:38→20:20)
[2024-04-23] MEDS: Atorvastatin Calcium 40 MG Tablet PO (09:38)
[2024-04-23] MEDS: Furosemide 40 MG/4 ML Vial IV (09:39)
[2024-04-23] MEDS: Losartan Potassium 50 MG Tablet PO ×2 (09:39→20:20)
[2024-04-23] MEDS: amLODIPine 5 MG Tablet PO (09:39)
[2024-04-23] MEDS: 0.9% Saline Lock 10 ML Syringe IV ×2 (09:43→13:49)
--- NOTE | 2024-04-23 10:15 | CASEMGMT ---
RN CM Face to Face with patient for initial transition planning/care coordination assessment. RN CM introduced self and role at [facility]. Patient lying in bed, alert and oriented. Patient willing to participate in assessment and is able to answer all questions appropriately. Care providers, pharmacy, and demographics verified. Strata: 2 PCP: Tita Hobson Specialists: Lynne, credit controller; Santos, urologist; Oscar Storm, linotype machinist apprentice; Monty, oncologist; Alex, double end sewer; and Neurologist Preferred Pharmacy: [facility] Insurance: Pharmacy Development Prescription Benefit: yes Living Will/HPOA: yes, daughter Ginny Ibarra LNOK: , daughters Living Arrangements: Patient lives with in a single story home with 2 steps and grab bar to enter. Patient states that his assist him with ADLs but she is currently being treated for lung cancer and staying with patient's daughter. Transportation: , daughter, granddaughter. DME/HHC: Patient states he has shower chair, BSC, raised toilet, grab bars, walker, rollator, wheelchair, cpap, nebulizer, pulse ox, glucometer, and home oxygen through [facility] at 3lpm continuously. Patient has had [facility] HHC in the past. No previous SNF. Patient wishes to discharge home but willing to go to SNF if needed. Patient would like this RN CM to discuss with daughter Tiana. Patient states he has no further needs or concerns at this time. CM to follow for discharge planning needs that may arise. Disposition Plan: TBD, anticipate SNF vs HHC pending course of treatment and progress with therapy. Kaylee PANIAGUAN, RN, CM
--- NOTE | 2024-04-23 10:34 | CASEMGMT ---
MARCO ANTONIO received a message from patient's daughter Ginny Ibarra ([phone]). Ginny said she has been talking with Murali the Calender Operator Helper at [facility] regarding care for patient. Ginny said she is dealing with both parents being sick right now. Ginny asked for a return call. MARCO ANTONIO passed along this message to FLORIDA MARTINES. Aaliyah GLASGOW
--- NOTE | 2024-04-23 11:50 | CASEMGMT ---
RN CM called daughter Ginny to discuss discharge planning. Per Ginny, they are not able to provide 24/7 care to patient if needed. RN CM discuss SNF vs HHC and that patient would work with therapy for recommendations. Ginny states that her sister will be in to visit with patient. RN CM discuss SNF list and that it could be left in patient's room for family to review. Ginny voiced appreciation and states she will discuss with her mother and family on goals at discharge. CM will continue to follow this patient and plan for a safe discharge.
--- NOTE | 2024-04-23 13:45 | CASEMGMT ---
FLORIDA MARTINES received call from Ginny stating that family would not be in to see patient to day and asked to have SNF list texted to her number. Ginny states that she spoke with her family and they would like patient to go to SNF and inquired about TCU. FLORIDA MARTINES updated Ginny that she was not sure if there were beds available but a referral could be sent to see. Ginny agreeable to referral being sent and states that TCU would be their first preference. FLORIDA MARTINES encourage Ginny to review SNF list and provide additional preferences should TCU not be available. Ginny voiced understanding and had no further questions or concerns. FLORIDA MARTINES updated SW regarding request.
--- NOTE | 2024-04-23 13:52 | CASEMGMT ---
SW noted patient is going to need SNF at discharge. SW met with patient. Introduced self and role at [facility]. SW provided patient with a list of senior living providers including quality and resource use data and consistent with patient?s preferred geographic region, medical needs, and insurance network were provided from the [employer] Guide. SW explained to patient that SW needs him to pick 3 preferences and SW will make referrals. SW then received a message from RN BOBBI that patient's daughter is not going to make it in today. She would like a referral to [facility] TCU. Patient's daughter then requested the list be sent to her. Plan: SNF pending accepting facility. Aaliyah GLASGOW
[2024-04-23] MEDS: Acetaminophen 325 MG Tablet 650 MG PO (20:26)
[2024-04-23] MEDS: MELATONIN 3 MG TABLET PO (20:26)
[2024-04-24] VITALS (13 sets, daily range): BP systolic 125–147; BP diastolic 56–71; PULSE 70–90; RESP 18–24; TEMP 36.3–36.6; O2SAT 94–97; BMI 38.7
[2024-04-24] MEDS: Ipratropium/Albuterol Sulfate 3 ML AMPUL.NEB INHALATION ×6 (03:48→22:56)
[2024-04-24] MEDS: Levothyroxine 50 MCG Tablet PO (04:41)
[2024-04-24] MEDS: Pramipexole Di-HCl 0.5 MG Tablet PO ×3 (04:42→21:18)
[2024-04-24 06:56] LABS: Absolute Lymphocyte Count 0.31 X10^3/uL (0.83-4.51); Absolute Neutrophil Count 17.9 X10^3/uL (2.0-7.7); Basophil# 0.03 X10^3/uL; Basophil% 0.2 % (0-1); Hematocrit 41.9 % (40-54); Hemoglobin 13.7 g/dL (13.0-16.5); Lymphocyte # 0.31 X10^3/ul (0.83-4.51); Lymphocyte % 1.6 % (19-41); Mean Corp Hgb Conc 32.7 g/dL (32-36); Mean Corpuscular Hgb 29.7 pg (27.0-32.0); Mean Corpuscular Volume 90.9 fL (80-94); Mean Platelet Vol. 10.8 fl (6.2-12.0); Monocyte# 0.59 X10^3/uL; Monocyte% 3.1 % (0-10); NRBC Flagged by Analyzer 0 % (0-5); Neutrophil # 17.93 X10^3/uL (2.7-7.7); Neutrophil % 94.1 % (47-70); POSITIVE DIFFERENTIAL YES; Platelet Count 170 K/mm3 (150-450); RBC Distribution Width CV 14.9 % (11.6-14.6); RBC Distribution Width SD 49.7 fl (35.1-43.9); Red Blood Count 4.61 M/mm3 (4.6-6.2); White Blood Count 19.1 K/mm3 (4.4-11.0)
[2024-04-24 07:22] LABS: Anion Gap 7 (5-15); BUN 31 mg/dL (7-18); BUN/Creat Ratio 22.5 RATIO (10-20); Calcium,Total 8.4 mg/dL (8.5-10.1); Chloride 104 mmol/L (98-107); Creatinine, Serum 1.38 mg/dL (0.70-1.30); EST Glomerular Filtration Rate 53 mL/min (>60); Est Glom Filt Rate - Afr Amer 64 mL/min (>60); Estimated Creatinine Clearance 57.91 ml/min; Glucose 154 mg/dL (74-106); Potassium 3.7 mmol/L (3.5-5.1); Sodium Level 138 mmol/L (136-145)
[2024-04-24] MEDS: Azithromycin 250 MG Tablet 500 MG PO (09:03)
[2024-04-24] MEDS: Metoprolol(XL)Succ 100 MG Tablet PO (09:04)
[2024-04-24] MEDS: Senna/Docusate Sodium 1 Tablet 2 TABLET PO ×2 (09:04→21:19)
[2024-04-24] MEDS: Atorvastatin Calcium 40 MG Tablet PO (09:05)
[2024-04-24] MEDS: Enoxaparin 40 MG/0.4 ML Syringe SC ×2 (09:05→21:18)
[2024-04-24] MEDS: Losartan Potassium 50 MG Tablet PO ×2 (09:05→21:18)
[2024-04-24] MEDS: amLODIPine 5 MG Tablet PO (09:06)
[2024-04-24] MEDS: guaiFENesin 1,200 MG Tablet 1200 MG PO ×2 (09:06→21:19)
[2024-04-24] MEDS: Oseltamivir Phosphate 30 MG Capsule PO ×2 (09:06→21:19)
[2024-04-24] MEDS: 0.9% Saline Lock 10 ML Syringe IV ×2 (09:07→21:20)
[2024-04-24] MEDS: Furosemide 40 MG/4 ML Vial IV (09:07)
[2024-04-24] MEDS: Glycerin/Hypromellose/PEG400 15 ml Bottle 1 DRP EACH EYE ×3 (13:01→21:24)
--- NOTE | 2024-04-24 14:35 | PN.HOSP_ITS ---
Reason for Visit Reason for Visit: Diagnoses Chronic obstructive pulmonary disease with (acute) exacerbation (04/22/24) Objective Data Objective Data Vital Signs: Vital Signs Temp Pulse Resp BP Pulse Ox O2 Del Method O2 Flow Rate 97.5 F L 72 18 139/56 H 95 Nasal Cannula 3 04/24/24 09:02 04/24/24 09:04 04/24/24 09:02 04/24/24 09:02 04/24/24 09:02 04/24/24 09:02 04/24/24 09:02 Oxygen Flow Rate (L/min) 3 Oxygen Delivery Method Nasal Cannula Weight: 270 lb 1.06 oz Body Mass Index (BMI) 38.7 Intake & Output: Intake and Output for Last 24 Hours 04/22/24 04/23/24 04/24/24 23:59 23:59 23:59 Intake Total 305 / 785 1670 / 1920 870 / 870 Output Total 3200 / 3750 1600 / 1600 Balance 305 / -215 -1530 / -1830 -730 / -730 Lab / Micro Data 04/24/24 05:46 04/24/24 05:46 Labs: Laboratory Results - last 24 hr 04/24/24 05:46: WBC 19.1 H, RBC 4.61, Hgb 13.7, Hct 41.9, MCV 90.9, MCH 29.7, MCHC 32.7, RDW Std Deviation 49.7 H, RDW Coeff of Iram 14.9 H, Plt Count 170, MPV 10.8, Immature Gran % (Auto) 1.000 H, Neut % (Auto) 94.1 H, Lymph % (Auto) 1.6 L , [place] % (Auto) 3.1, Eos % (Auto) 0.0, Baso % (Auto) 0.2, Absolute Neuts (auto) 17.9 H, Absolute Lymphs (auto) 0.31 L, Nucleated RBC % 0, Sodium 138, Potassium 3.7, Chloride 104, Carbon Dioxide 27.0, Anion Gap 7, BUN 31 H, Creatinine 1.38 H , Estim Creat Clear Calc 57.91, Est GFR (MDRD) Af Amer 64, Est GFR (MDRD) Non-Af 53 L, BUN/Creatinine Ratio 22.5 H, Glucose 154 H, Calcium 8.4 L Micro: Microbiology 04/22/24 17:20 Mucosa - Nose SARS-CoV-2, Influenza & RSV (PCR) - Final Influenzae A Physical Exam Narrative Seen and examined. Patient still feels very weak and gets short of breath/dyspnea, even going to bathroom. Patient has history of persistent A-fib, chronic combined systolic failure, pulmonary arterial hypertension, atherosclerotic heart disease status post stent, COPD and lung cancer. Follows computer game designer Dr. Batista, oncologist Dr. Millan and lead software qa engineer Dr. Storm. Patient states he is sick with cough, shortness of breath progressively worsening for 1 week. Has thin and whitish sputum. No fever Physical exam General: Alert, Oriented x3, Cooperative, obesity grade 2 BMI 38.3 kg/m?. Fatigue and frail HEENT: Atraumatic, PERRLA, EOMI, Normocephalic Oral: No Gingival or Mucosal Lesions/ Ulcerations Neck: Supple, No JVD, Negative Carotid Bruits Chest wall/Lungs: Air entry diminished in bilateral lung bases. Bilateral coarse crepitations and rhonchi improving Cardiovascular: irregular rhythm, A-fib, Normal S1, Normal S2, systolic murmur Abdomen: Bowel Sounds Present, Soft, Non Tender, Non-Distended : No dysuria. No renal angle tenderness. No suprapubic tenderness. Extremities: Mild pitting edema, Capillary Refill Less than 3 Seconds Skin: No rashes, No breakdown Musculoskeletal: No Tenderness to Palpation of Joints or Extremities Neurological: Cranial nerves II-XII grossly intact, DTR 2+/4. No acute focal neurological deficit. Psych/Mental Status: Flat affect Assessment & Plan Assessment/Plan (1) COPD exacerbation: PLAN: Plan 78-year-old gentleman was admitted with SOB, cough, feeling weak for about 1 week. History of COPD on 4 L of home oxygen, lung cancer and A-fib. Patient had cough and was seen by physician on Friday given antibiotics probably amoxicillin and steroid, initially felt better but turned worse/downhill 2 days ago. Dyspnea on mild exertion on walking short distance. Increase the frequency of his inhalers. # Increased shortness of breath secondary to COPD exacerbation with chronic hypoxic respiratory failure on 4 L home O2 secondary to influenza A -Admit to floor, continuous O2 monitoring -Chest x-ray: Individually reviewed shows mild pulmonary venous congestion but no consolidation -PFTs in 2020 with irreversible moderately severe large airway defect -Follows with pulmonology in the office and was last seen 11/06/2023, outpatient note reviewed -Patient flu positive, start oseltamavir -O2 in place -IV methylprednisone -Scheduled DuoNebs -Albuterol prn -Incentive spirometer -Mucinex -Azithro for COPD exacerbation 04/23: Overall patient feeling better than yesterday. 04/24: Shortness of breath, cough is improving but patient still very weak and dyspnea on exertion. Will need rehab # Suspect component of fluid overload due to chronic heart failure with preserved ejection fraction/pulmonary hypertension -Follows with cardiology in the office, last seen 09/23/2023, note reviewed -Patient had been on Lasix 40 mg twice daily but is not presently on this which may account for the component of fluid overload -BNP slightly elevated at 240 -Continue IV lasix -Last echo 10/19/2021 with EF of 50% and mild concentric LVH as well as 3+ tricuspid valve insufficiency and PASP of 90 mmHg -Repeat echo ordered Heart failure core measures including intake and output, fluid restriction less than 1500 mL, daily weight monitoring, kidney and electrolytes monitoring. 04/24: Continue same regimen of diuretic. Creatinine improving. # History of coronary artery disease status post CABG and stent -Continue statin, continue beta-zita -Patient is not taking aspirin and he is not on a blood thinner for his A-fib either and he is unsure why, this will ultimately need to be clarified # CKD stage III a -Appears to be at baseline -Avoid nephrotoxic agents -Daily BMPs 04/23: Creatinine is similar with no change. #HEBER -Continue home NIPPV # Atrial fibrillation -Not on home anticoagulation, patient unsure why this was discontinued -Continue beta-zita #Hypertension -Continue home medications, patient thinks current medication list is up-to-date in our system some medications were continued based on this however he ultimately will provide a list so that this can be compared to, may need adjustments once list is verified # History of left-sided lung cancer -With previous VATS/removal and 4 cycles of Alimta -Currently in remission -Follows with [place] oncology, Dr. Lewis #Morbid obesity -BMI documented as 40.9 kg/m? at time of admission -Complicates treatment, prognosis, outcomes -Recommend weight loss and lifestyle changes # Parkinson's disease -Continue ropinirole, patient has 0.5 3 times daily on med list, will continue but may need adjusted if dose is changed once med rec completed #Hypothyroidism -Continue Synthroid-Appears patient is feeling 50 mcg of Synthroid on external fill, will continue this #DVT ppx: Lovenox subcu Charges/Coding Visit Charges Inpatient E&M: 84292 Subs Hosp L2
[2024-04-24] MEDS: Acetaminophen 325 MG Tablet 650 MG PO (21:34)
[2024-04-24] MEDS: MELATONIN 3 MG TABLET PO (21:34)
[2024-04-25] VITALS (12 sets, daily range): BP systolic 122–149; BP diastolic 59–73; PULSE 67–85; RESP 16–24; TEMP 36.4; O2SAT 92–98; BMI 38.8
[2024-04-25] MEDS: Ipratropium/Albuterol Sulfate 3 ML AMPUL.NEB INHALATION ×5 (02:17→20:01)
[2024-04-25 05:48] LABS: Absolute Lymphocyte Count 0.22 X10^3/uL (0.83-4.51); Absolute Neutrophil Count 15.5 X10^3/uL (2.0-7.7); Basophil# 0.03 X10^3/uL; Basophil% 0.2 % (0-1); Eosinophil# 3.09 X10^3/uL; Eosinophils% 15.8 % (0-5); Hemoglobin 13.1 g/dL (13.0-16.5); Lymphocyte # 0.22 X10^3/ul (0.83-4.51); Lymphocyte % 1.1 % (19-41); Mean Corp Hgb Conc 32.8 g/dL (32-36); Mean Corpuscular Hgb 29.7 pg (27.0-32.0); Mean Corpuscular Volume 90.7 fL (80-94); Monocyte# 0.39 X10^3/uL; NRBC Flagged by Analyzer 0 % (0-5); Neutrophil # 15.49 X10^3/uL (2.7-7.7); Neutrophil % 79.3 % (47-70); POSITIVE DIFFERENTIAL YES; POSITIVE MORPHOLOGY YES; Platelet Count 161 K/mm3 (150-450); RBC Distribution Width CV 14.9 % (11.6-14.6); RBC Distribution Width SD 49.9 fl (35.1-43.9); Red Blood Count 4.41 M/mm3 (4.6-6.2); White Blood Count 19.5 K/mm3 (4.4-11.0)
[2024-04-25 05:56] LABS: Anion Gap 7 (5-15); BUN 35 mg/dL (7-18); BUN/Creat Ratio 24.8 RATIO (10-20); Calcium,Total 8.5 mg/dL (8.5-10.1); Chloride 104 mmol/L (98-107); Creatinine, Serum 1.41 mg/dL (0.70-1.30); EST Glomerular Filtration Rate 52 mL/min (>60); Est Glom Filt Rate - Afr Amer 62 mL/min (>60); Estimated Creatinine Clearance 56.72 ml/min; Glucose 169 mg/dL (74-106); Potassium 3.9 mmol/L (3.5-5.1); Sodium Level 140 mmol/L (136-145)
[2024-04-25 06:13] LABS: Differential Indicated SCAN CRITERIA MET
[2024-04-25] MEDS: Levothyroxine 50 MCG Tablet PO (06:16)
[2024-04-25] MEDS: Pramipexole Di-HCl 0.5 MG Tablet PO ×3 (06:16→21:16)
[2024-04-25] MEDS: 0.9% Saline Lock 10 ML Syringe IV ×3 (06:16→14:28)
[2024-04-25 07:19] LABS: Differential Comment SCANNED
--- NOTE | 2024-04-25 08:34 | CPS ---
Pt instructed to do SMI and pep on own
[2024-04-25] MEDS: Enoxaparin 40 MG/0.4 ML Syringe SC ×2 (10:06→21:16)
[2024-04-25] MEDS: Metoprolol(XL)Succ 100 MG Tablet PO (10:06)
[2024-04-25] MEDS: Losartan Potassium 50 MG Tablet PO ×2 (10:06→21:16)
[2024-04-25] MEDS: Azithromycin 250 MG Tablet 500 MG PO (10:06)
[2024-04-25] MEDS: amLODIPine 5 MG Tablet PO (10:07)
[2024-04-25] MEDS: Oseltamivir Phosphate 30 MG Capsule PO ×2 (10:07→21:17)
[2024-04-25] MEDS: Furosemide 40 MG/4 ML Vial IV (10:07)
[2024-04-25] MEDS: guaiFENesin 1,200 MG Tablet 1200 MG PO ×2 (10:07→21:16)
[2024-04-25] MEDS: Senna/Docusate Sodium 1 Tablet 2 TABLET PO ×2 (10:07→21:16)
[2024-04-25] MEDS: Atorvastatin Calcium 40 MG Tablet PO (10:07)
[2024-04-25] MEDS: Glycerin/Hypromellose/PEG400 15 ml Bottle 1 DRP EACH EYE (10:08)
--- NOTE | 2024-04-25 14:58 | PN.HOSP_ITS ---
Reason for Visit Reason for Visit: Diagnoses Chronic obstructive pulmonary disease with (acute) exacerbation (04/22/24) Objective Data Objective Data Vital Signs: Vital Signs Temp Pulse Resp BP Pulse Ox O2 Del Method O2 Flow Rate 97.6 F L 85 16 141/73 H 93 Nasal Cannula 3 04/25/24 10:05 04/25/24 10:32 04/25/24 10:32 04/25/24 10:05 04/25/24 14:39 04/25/24 14:39 04/25/24 14:39 Oxygen Flow Rate (L/min) 3 Oxygen Delivery Method Nasal Cannula Weight: 270 lb 8.115 oz Body Mass Index (BMI) 38.8 Intake & Output: Intake and Output for Last 24 Hours 04/23/24 04/24/24 04/25/24 23:59 23:59 23:59 Intake Total 1670 / 1920 1470 / 1470 480 / 480 Output Total 3200 / 3750 1600 / 1600 350 / 350 Balance -1530 / -1830 -130 / -130 130 / 130 Lab / Micro Data 04/25/24 05:25 04/25/24 05:25 Labs: Laboratory Results - last 24 hr 04/25/24 05:25: WBC 19.5 H, RBC 4.41 L, Hgb 13.1, Hct 40.0, MCV 90.7, MCH 29.7, MCHC 32.8, RDW Std Deviation 49.9 H, RDW Coeff of Iram 14.9 H, Plt Count 161, MPV 10.0, Immature Gran % (Auto) 1.600 H, Neut % (Auto) 79.3 H, Lymph % (Auto) 1.1 L , [place] % (Auto) 2.0, Eos % (Auto) 15.8 H, Baso % (Auto) 0.2, Absolute Neuts (auto) 15.5 H, Absolute Lymphs (auto) 0.22 L, Nucleated RBC % 0, Differential Comment SCANNED, Sodium 140, Potassium 3.9, Chloride 104, Carbon Dioxide 29.0, Anion Gap 7, BUN 35 H, Creatinine 1.41 H, Estim Creat Clear Calc 56.72, Est GFR (MDRD) Af Amer 62, Est GFR (MDRD) Non-Af 52 L, BUN/Creatinine Ratio 24.8 H, G lucose 169 H, Calcium 8.5 Micro: Microbiology 11/07/24 18:40 Blood Culture (Wb) - Anticubital Left Blood Culture - Preliminary No growth in 48 hours. 04/22/24 17:20 Mucosa - Nose SARS-CoV-2, Influenza & RSV (PCR) - Final Influenzae A Physical Exam Narrative Seen and examined. Patient still feels very weak and gets short of breath/dyspnea, even going to bathroom. Symptoms of shortness of breath getting better. Still has leukocytosis. No fever. Patient has history of persistent A-fib, chronic combined systolic failure, pulmonary arterial hypertension, atherosclerotic heart disease status post stent, COPD and lung cancer. Follows director security management Dr. Batista, oncologist Dr. Millan and porter sample case Dr. Storm. Physical exam General: Alert, Oriented x3, Cooperative, obesity grade 2 BMI 38.3 kg/m?. Fatigue and frail HEENT: Atraumatic, PERRLA, EOMI, Normocephalic Oral: No Gingival or Mucosal Lesions/ Ulcerations Neck: Supple, No JVD, Negative Carotid Bruits Chest wall/Lungs: Air entry diminished in bilateral lung bases. Bilateral coarse crepitations and rhonchi improving Cardiovascular: irregular rhythm, A-fib, Normal S1, Normal S2, systolic murmur Abdomen: Bowel Sounds Present, Soft, Non Tender, Non-Distended : No dysuria. No renal angle tenderness. No suprapubic tenderness. Extremities: Mild pitting edema, Capillary Refill Less than 3 Seconds Skin: No rashes, No breakdown Musculoskeletal: No Tenderness to Palpation of Joints or Extremities Neurological: Cranial nerves II-XII grossly intact, DTR 2+/4. No acute focal neurological deficit. Psych/Mental Status: Flat affect Assessment & Plan Assessment/Plan (1) COPD exacerbation: PLAN: Plan 78-year-old gentleman was admitted with SOB, cough, feeling weak for about 1 week. History of COPD on 4 L of home oxygen, lung cancer and A-fib. Patient had cough and was seen by physician on Friday given antibiotics probably amoxicillin and steroid, initially felt better but turned worse/downhill 2 days ago. Dyspnea on mild exertion on walking short distance. Increase the frequency of his inhalers. # Increased shortness of breath secondary to COPD exacerbation with chronic hypoxic respiratory failure on 4 L home O2 secondary to influenza A -Admit to floor, continuous O2 monitoring -Chest x-ray: Individually reviewed shows mild pulmonary venous congestion but no consolidation -PFTs in 2020 with irreversible moderately severe large airway defect -Follows with pulmonology in the office and was last seen 11/06/2023, outpatient note reviewed -Patient flu positive, start oseltamavir -O2 in place -IV methylprednisone -Scheduled DuoNebs -Albuterol prn -Incentive spirometer -Mucinex -Azithro for COPD exacerbation 04/23: Overall patient feeling better than yesterday. 04/24: Shortness of breath, cough is improving but patient still very weak and dyspnea on exertion. Will need rehab 04/25: Overall patient improved. Leukocytosis stable but chest x-ray does not show acute consolidation. Continue Lasix. Plan for rehab. # Suspect component of fluid overload due to chronic heart failure with preserved ejection fraction/pulmonary hypertension -Follows with cardiology in the office, last seen 09/23/2023, note reviewed -Patient had been on Lasix 40 mg twice daily but is not presently on this which may account for the component of fluid overload -BNP slightly elevated at 240 -Continue IV lasix -Last echo 10/19/2021 with EF of 50% and mild concentric LVH as well as 3+ tricuspid valve insufficiency and PASP of 90 mmHg -Repeat echo ordered Heart failure core measures including intake and output, fluid restriction less than 1500 mL, daily weight monitoring, kidney and electrolytes monitoring. 04/24: Continue same regimen of diuretic. Creatinine improving. # History of coronary artery disease status post CABG and stent -Continue statin, continue beta-zita -Patient is not taking aspirin and he is not on a blood thinner for his A-fib either and he is unsure why, this will ultimately need to be clarified # CKD stage III a -Appears to be at baseline -Avoid nephrotoxic agents -Daily BMPs 04/23: Creatinine is similar with no change. 04/25: Creatinine 1.4. BUN 35. On Voiceline. #HEBER -Continue home NIPPV # Atrial fibrillation -Not on home anticoagulation, patient unsure why this was discontinued -Continue beta-zita 04/25 alarm security or surveillance monitor shows A-fib #Hypertension -Continue home medications, patient thinks current medication list is up-to-date in our system some medications were continued based on this however he ultimately will provide a list so that this can be compared to, may need adjustments once list is verified # History of left-sided lung cancer -With previous VATS/removal and 4 cycles of Alimta -Currently in remission -Follows with [place] oncology, Dr. Lewis #Morbid obesity -BMI documented as 40.9 kg/m? at time of admission -Complicates treatment, prognosis, outcomes -Recommend weight loss and lifestyle changes # Parkinson's disease -Continue ropinirole, patient has 0.5 3 times daily on med list, will continue but may need adjusted if dose is changed once med rec completed #Hypothyroidism -Continue Synthroid-Appears patient is feeling 50 mcg of Synthroid on external fill, will continue this #DVT ppx: Lovenox subcu Charges/Coding Visit Charges Inpatient E&M: 39139 Subs Hosp L2
[2024-04-25] MEDS: MELATONIN 3 MG TABLET PO (21:17)
[2024-04-25] MEDS: Acetaminophen 325 MG Tablet 650 MG PO (21:17)
[2024-04-25 23:11] LABS: Magnesium 2.5 mg/dL (1.6-2.6)
[2024-04-26 03:08] VITALS: BP 148/74; PULSE 74; RESP 16; TEMP 36.3; O2SAT 97
[2024-04-26 04:28] VITALS: BMI 38.8
[2024-04-26 05:33] LABS: Absolute Neutrophil Count 13.2 X10^3/uL (2.0-7.7); Basophil# 0.04 X10^3/uL; Basophil% 0.2 % (0-1); Eosinophil# 5.27 X10^3/uL; Hematocrit 39.7 % (40-54); Mean Corp Hgb Conc 32.7 g/dL (32-36); Mean Corpuscular Hgb 29.8 pg (27.0-32.0); Mean Corpuscular Volume 91.1 fL (80-94); Mean Platelet Vol. 10.1 fl (6.2-12.0); Monocyte# 0.57 X10^3/uL; Monocyte% 2.9 % (0-10); NRBC Flagged by Analyzer 0 % (0-5); Neutrophil # 13.19 X10^3/uL (2.7-7.7); Neutrophil % 67.5 % (47-70); POSITIVE DIFFERENTIAL YES; POSITIVE MORPHOLOGY YES; Platelet Count 165 K/mm3 (150-450); RBC Distribution Width CV 14.8 % (11.6-14.6); RBC Distribution Width SD 49.8 fl (35.1-43.9); Red Blood Count 4.36 M/mm3 (4.6-6.2); White Blood Count 19.5 K/mm3 (4.4-11.0)
[2024-04-26 05:55] LABS: Anion Gap 4 (5-15); BUN 39 mg/dL (7-18); BUN/Creat Ratio 27.1 RATIO (10-20); Calcium,Total 8.4 mg/dL (8.5-10.1); Chloride 104 mmol/L (98-107); Creatinine, Serum 1.44 mg/dL (0.70-1.30); EST Glomerular Filtration Rate 50 mL/min (>60); Est Glom Filt Rate - Afr Amer 61 mL/min (>60); Estimated Creatinine Clearance 55.59 ml/min; Glucose 166 mg/dL (74-106); Potassium 4.1 mmol/L (3.5-5.1); Sodium Level 139 mmol/L (136-145)
[2024-04-26] MEDS: Pramipexole Di-HCl 0.5 MG Tablet PO ×2 (05:56→13:19)
[2024-04-26] MEDS: Levothyroxine 50 MCG Tablet PO (05:56)
[2024-04-26] MEDS: 0.9% Saline Lock 10 ML Syringe IV ×3 (05:57→13:19)
[2024-04-26 06:06] LABS: Differential Indicated SCAN CRITERIA MET
[2024-04-26 06:57] LABS: Differential Comment SCANNED
[2024-04-26 06:58] VITALS: PULSE 80; RESP 18; O2SAT 98
[2024-04-26] MEDS: Ipratropium/Albuterol Sulfate 3 ML AMPUL.NEB INHALATION ×2 (07:00→10:53)
[2024-04-26 09:10] VITALS: BP 124/60; PULSE 90; RESP 20; TEMP 36.6; O2SAT 95
[2024-04-26 09:11] VITALS: PULSE 90
[2024-04-26] MEDS: Azithromycin 250 MG Tablet 500 MG PO (09:11)
[2024-04-26] MEDS: Oseltamivir Phosphate 30 MG Capsule PO (09:11)
[2024-04-26] MEDS: Senna/Docusate Sodium 1 Tablet 2 TABLET PO (09:11)
[2024-04-26] MEDS: Metoprolol(XL)Succ 100 MG Tablet PO (09:11)
[2024-04-26] MEDS: Enoxaparin 40 MG/0.4 ML Syringe SC (09:12)
[2024-04-26] MEDS: Atorvastatin Calcium 40 MG Tablet PO (09:12)
[2024-04-26] MEDS: Furosemide 40 MG/4 ML Vial IV (09:12)
[2024-04-26] MEDS: amLODIPine 5 MG Tablet PO (09:12)
[2024-04-26] MEDS: guaiFENesin 1,200 MG Tablet 1200 MG PO (09:12)
[2024-04-26] MEDS: Losartan Potassium 50 MG Tablet PO (09:12)
--- NOTE | 2024-04-26 09:38 | CASEMGMT ---
FLORIDA MARTINES received message from daughter, Ginny, wanting updates. Per SW, TCU is able to accept patient and has bed available today, but patient would not be able to have clindamycin topical solution or eye injection while on TCU. FLORIDA MARTINES returned call to daughter and updated regarding acceptance to TCU and that the hospitalist believed patient is medically ready to discharge. Ginny voiced understanding and is agreeable for patient not to receive clindamycin or eye injection. Daughter had no further questions or concerns.
--- NOTE | 2024-04-26 09:56 | CASEMGMT ---
[facility] TCU can take patient. MARCO ANTONIO notified physician. There are 2 medications patient will not be on while on TCU and RN CM spoke with patient's daughter Nano about these meds. Nano is okay with patient not being on Rhinase and Clindamycin topical solution. MARCO ANTONIO notified physician. Plan: d/c to [facility] TCU. Aaliyah GLASGOW
--- NOTE | 2024-04-26 10:40 | CASEMGMT ---
MARCO ANTONIO notified patient that he has been approved to go to [facility] TCU. Patient was pleased and thanked MARCO ANTONIO. Plan: d/c to [facility] TCU under skilled level of care. Aaliyah GLASGOW
[2024-04-26 10:50] VITALS: PULSE 82; RESP 18
--- NOTE | 2024-04-26 11:53 | TREXTCAR_ITS ---
Diet Diet Order/Speech Therapy: 04/22/24 19:58 Diet: Cardiac - Heart Healthy Food consistency:: Regular Liquid Consistency:: Regular/Thin Routine Orders/Code Status O2 Liters per Minute: 3 O2 Frequency: Continuous Keep PO Greater than or Equal to (%): 90 Code Status: Full Code Therapies Physical Therapy: Eval and Treat Occupational Therapy: Eval and Treat Problem/Diagnosis (1) COPD exacerbation: Status: Chronic Code(s): J44.1 - Chronic obstructive pulmonary disease with (acute) exacerbation Plan 1. Exacerbation of COPD due to influenza A #2 influenza A infection #3 chronic hypoxic respiratory failure #4 coronary artery disease #5 chronic kidney disease stage III AA #6 permanent atrial fibrillation #7 obstructive sleep apnea #8 severe pulmonary hypertension #9 right-sided congestive heart failure Allergies/Procedures Done in Hospital Allergies No Known Allergies Allergy (Verified 04/22/24 16:46) Procedures: 2-D Echocardiogram Type of Care/Length of Stay Estimated LOS: Convalescent Care Less Than 30 days Type of Care Needed: Skilled Rehab Potential: Good Prognosis: Good Additional Orders/Day of Discharge H&P will serve as current which was dated: 04/22/24 Day of Discharge: 04/26/24 Discharge Plan Admission Admit Date/Time: 04/22/24 18:59 Primary Reason for Your Visit: Exacerbation of COPD, right-sided heart failure Attending Provider: Leo Velasquez Primary Care Provider: Fany Hobson Consulting Providers: Zarina Prather; Orestes Farr Discharge Orders/Prescriptions Prescriptions: New acetaminophen 325 mg Tablet 650 mg PO Q6H PRN PRN (Reason: Pain 1-10 Or Fever >100.7) Qty: 0 0RF ipratropium-albuterol 0.5 mg-3 mg(2.5 mg base)/3 mL Solution For Nebulization 3 ml inhalation 4X/DAY Qty: 0 0RF albuterol sulfate 2.5 mg /3 mL (0.083 %) Solution For Nebulization 2.5 mg inhalation Q2H PRN PRN (Reason: SOB &/OR WHEEZING) Qty: 0 0RF sennosides-docusate sodium [Stimulant Laxative Plus] 8.6-50 mg Tablet 2 tab PO BID Qty: 0 0RF melatonin 3 mg Tablet 3 mg PO QHS PRN PRN (Reason: Insomnia) Qty: 0 0RF levothyroxine 50 mcg Tablet 50 mcg PO DAILY@0600 Qty: 0 0RF Artificial Tears(ol-jivn-rdfr) 1-0.2-0.2 % Drops 1 drp EACH EYE Q1H PRN (Reason: DRY EYES) Qty: 0 0RF Nasal Moisturizing 0.65 % aerosol,spray 2 spray intranasal Q2H PRN (Reason: dry nasal passages) Qty: 50 0RF prednisone 20 mg tablet 20 mg PO BID Qty: 7 0RF Rx Instructions: 1 twice a day for 3 days, then 1-1/2 daily for 3 days, then 1 daily for 3 days then discontinue medication Continued cholecalciferol (vitamin D3) 5,000 unit capsule 5,000 unit PO DAILY rosuvastatin 20 mg tablet 20 mg PO DAILY docusate sodium 100 mg capsule 100 mg PO BID Rx Instructions: noon and bedtime pramipexole 0.5 MG tablet 0.5 mg PO TID ferrous sulfate 325 MG tablet 65 mg PO DAILY PreserVision AREDS 2,148 mcg-113 mg-45 mg-17.4mg tablet 1 tab PO BID trazodone 50 mg Tablet 50 mg PO QHS metoprolol succinate 100 mg tablet extended release 24 hr 100 mg PO DAILY Qty: 90 3RF gabapentin 600 mg tablet 1,200 mg PO QHS amlodipine 5 mg tablet 5 mg PO DAILY Qty: 90 3RF losartan 50 mg tablet 50 mg PO BID Qty: 180 3RF Discontinued clindamycin phosphate 1 % solution topical diclofenac sodium 1 % gel topical folic acid 1 MG tablet 1 mg PO DAILY@1200 cyanocobalamin (vitamin B-12) 1,000 MCG/ML solution 1,000 mcg IM Q30D Rhinase 15-0.17-20-0.22 % Gel 1 ea INTRANASAL PRN PRN (Reason: DRY NOSE) albuterol sulfate [Ventolin HFA] 90 mcg/actuation HFA aerosol inhaler 1 - 2 puff inhalation Q4H PRN PRN (Reason: Wheezing) Qty: 1 0RF Trelegy Ellipta 100-62.5-25 mcg blister with device 1 inh inhalation DAILY Qty: 3 3RF Referrals / Follow Up: Fast,Fany, DO [Primary Care Provider] - Disposition Disposition (needs filled in before D/C Order can be placed): Senior Living Facility
--- NOTE | 2024-04-26 12:10 | DS.PCM_ITS ---
Providers Date of Admission: 04/22/24 Date of Discharge: 04/26/24 Primary Care Physician: Dr. Fany Hobson DO Reason For Visit: INCREASING SOB Diagnosis Discharge Diagnosis (1) COPD exacerbation: Status: Chronic Code(s): J44.1 - Chronic obstructive pulmonary disease with (acute) exacerbation Plan 1. Exacerbation of COPD due to influenza A #2 influenza A infection #3 chronic hypoxic respiratory failure #4 coronary artery disease #5 chronic kidney disease stage IIIa #6 permanent atrial fibrillation #7 obstructive sleep apnea #8 severe pulmonary hypertension #9 Acute right-sided congestive heart failure initial episode Medications at Discharge Home Medications pramipexole 0.5 mg tablet 0.5 mg PO TID parkinsons 12/04/16 docusate sodium 100 mg capsule 100 mg PO BID bowels 10/20/17 ferrous sulfate 325 mg (65 mg iron) tablet 65 mg PO DAILY supplement 02/01/19 cholecalciferol (vitamin D3) 125 mcg (5,000 unit) capsule 5,000 unit PO DAILY cholesterol 03/30/19 trazodone 50 mg tablet 50 mg PO QHS sleep 03/21/21 rosuvastatin 20 mg tablet 20 mg PO DAILY cholesterol 03/05/22 vitamins A,C,C-apxk-ekrtjr 2,148 mcg-113 mg-45 mg-17.4 mg tablet (PreserVision AREDS) 1 tab PO BID eye health 03/27/22 metoprolol succinate 100 mg tablet,extended release 24 hr 100 mg PO DAILY bp,heart #90 tabs 08/18/23 gabapentin 600 mg tablet 1,200 mg PO QHS nerve pain 09/23/23 amlodipine 5 mg tablet 5 mg PO DAILY htn #90 tabs 12/11/23 losartan 50 mg tablet 50 mg PO BID BP #180 TABLETS 03/19/24 acetaminophen 325 mg tablet 650 mg (2 x 325 mg) PO Q6H PRN PRN Pain 1-10 Or Fever >100.7 #0 tabs 04/26/24 albuterol sulfate 2.5 mg/3 mL (0.083 %) solution for nebulization 2.5 mg (3 mL) inhalation Q2H PRN PRN SOB &/OR WHEEZING #0 mL 04/26/24 furosemide 40 mg tablet (Lasix) 60 mg (1.5 x 40 mg) PO BID fluid #1 TAB 04/26/24 ipratropium 0.5 mg-albuterol 3 mg (2.5 mg base)/3 mL nebulization soln 3 ml inhalation 4X/DAY breathing #0 mL 04/26/24 levothyroxine 50 mcg tablet 50 mcg PO DAILY@0600 Thyroid #0 tabs 04/26/24 melatonin 3 mg tablet 3 mg PO QHS PRN PRN Insomnia #0 tabs 04/26/24 peg [id number] 1 %-0.2 %-0.2 % eye drops (Artificial Tears ([id number])) 1 drp EACH EYE Q1H PRN DRY EYES #0 mL 04/26/24 prednisone 20 mg tablet 20 mg PO BID Steroid #7 tabs 04/26/24 sennosides 8.6 mg-docusate sodium 50 mg tablet (Stimulant Laxative Plus) 2 tab PO BID Constipation #0 tabs 04/26/24 sodium chloride 0.65 % nasal spray aerosol (Nasal Moisturizing) 2 spray intranasal Q2H PRN dry nasal passages #50 mL 04/26/24 Hospital Course Operations None Procedures None Summary of Care Provided Minutes Spent on Discharge: 32 Hospital Course: This 78-year-old white male was seen in the emergency room at [facility] with complaints of cough and malaise. Patient states that he was seen approximately week prior and was given antibiotics as well as a shot of corticosteroids. Over the next several days after that he seemed to be doing well however 2 days ago he started to feel worse. Patient complains that he could not walk more than a short distance without becoming short of breath. Patient is chronically on 4 L of oxygen at home. Workup in the ER revealed the patient required 4 L of oxygen at rest, CBC was obtained which showed a normal white blood cell count, hemoglobin was stable at 13.3, patient's creatinine was noted to be 1.46 which appeared to be his baseline. EKG showed atrial fibrillation with a rate of 94 bpm, patient's chest x-ray showed cardiomegaly with no acute cardiopulmonary process. Patient was positive for influenza A virus. Patient was felt to have a COPD exacerbation and possible CHF, he was admitted to PCU and placed on IV antibiotics and IV Lasix. Echocardiogram was obtained which showed a normal EF, patient did have severe pulmonary hypertension however. Patient's medical status improved during his hospitalization, he was seen by PT and OT and it was recommended that he consider short-term placement in a detention facility which she agreed to. On 04/26/2024, patient was seen and examined: On examination he appeared in no distress. Vital signs as documented. Skin warm and dry and without overt rashes. Neck without JVD, neck was supple, trachea midline, thyroid was normal. Lungs clear bilaterally, normal air movement was noted. Heart exam notable for irregular rhythm, normal sounds and absence of murmurs, rubs or gallops. Abdomen unremarkable and without evidence of organomegaly, masses, or abdominal aortic enlargement. Bowel sounds are present, abdomen is not distended. Extremities nonedematous, no cyanosis was noted, no clubbing was noted. Neuro: Cranial nerves II through XII are grossly intact, no focal motor deficits were noted, sensation to light touch and pinprick intact, motor exam 5/5 throughout. Psych: Patient is alert and oriented x3, he does not appear anxious or depressed, he does not appear agitated. Patient was discharged in stable condition to TCU on 04/26/2024 for inpatient rehab services. Weight / BMI Weight Weight: 122.9 kg Body Mass Index (BMI) 38.8 ABG / Lab / Microbiology Data 04/26/24 05:26 04/26/24 05:26 Laboratory: Laboratory Results - last 24 hr 04/25/24 22:43: Magnesium 2.5 04/26/24 05:26: WBC 19.5 H, RBC 4.36 L, Hgb 13.0, Hct 39.7 L, MCV 91.1, MCH 29.8, MCHC 32.7, RDW Std Deviation 49.8 H, RDW Coeff of Iram 14.8 H, Plt Count 165, MPV 10.1, Immature Gran % (Auto) 1.400 H, Neut % (Auto) 67.5, Lymph % (Auto) 1.0 L, Campbell % (Auto) 2.9, Eos % (Auto) 27.0 H, Baso % (Auto) 0.2, A bsolute Neuts (auto) 13.2 H, Absolute Lymphs (auto) 0.20 L, Nucleated RBC % 0, Differential Comment SCANNED, Sodium 139, Potassium 4.1, Chloride 104, Carbon Dioxide 31.0, Anion Gap 4 L, BUN 39 H, Creatinine 1.44 H, Estim Creat Clear Calc 55.59, Est GFR (MDRD) Af Amer 61, Est GFR (MDRD) Non-Af 50 L, BUN/Creatinine Ratio 27.1 H, Glucose 166 H, Calcium 8.4 L Microbiology: Microbiology 04/22/24 18:40 Blood Culture (Wb) - Anticubital Left Blood Culture - Preliminary No growth in 48 hours. 04/22/24 17:20 Mucosa - Nose SARS-CoV-2, Influenza & RSV (PCR) - Final Influenzae A Meaningful Use Info Meaningful Use Meaningful Use Diagnoses (Choose all that apply): CHF CHF LALY/ARB ordered at discharge?: No Reason LALY/ARB not ordered?: Not indicated Documented LVEF (%): 60 Ischemic Stroke Statin Dosing Therapy Reference: STATIN DOSE THERAPY REFERENCE: * Patients > 75 years receive moderate or high dose statin therapy. * Patients 75 years or YOUNGER should receive HIGH intensity statin dose unless contraindicated. You will be required to document reason for non-treatment if statin daily dose does not meet guidelines. HIGH DOSE STATIN THERAPY DAILY Atorvastatin > than or = to 40 mg Rosuvastatin > than or = to 20 mg Amlodipine + Atorvastatin > than or = to 2.5/40 mg Ezetimibe + Simvastatin 10/80 mg Simvastatin 80mg Discharge Plan Admission Admit Date/Time: 04/22/24 18:59 Primary Reason for Your Visit: Exacerbation of COPD, right-sided heart failure Attending Provider: Leo Velasquez Primary Care Provider: Fany Hobson Consulting Providers: Zarina Prather; Orestes Farr Discharge Orders/Prescriptions Prescriptions: New acetaminophen 325 mg Tablet 650 mg PO Q6H PRN PRN (Reason: Pain 1-10 Or Fever >100.7) Qty: 0 0RF ipratropium-albuterol 0.5 mg-3 mg(2.5 mg base)/3 mL Solution For Nebulization 3 ml inhalation 4X/DAY Qty: 0 0RF albuterol sulfate 2.5 mg /3 mL (0.083 %) Solution For Nebulization 2.5 mg inhalation Q2H PRN PRN (Reason: SOB &/OR WHEEZING) Qty: 0 0RF sennosides-docusate sodium [Stimulant Laxative Plus] 8.6-50 mg Tablet 2 tab PO BID Qty: 0 0RF melatonin 3 mg Tablet 3 mg PO QHS PRN PRN (Reason: Insomnia) Qty: 0 0RF levothyroxine 50 mcg Tablet 50 mcg PO DAILY@0600 Qty: 0 0RF Artificial Tears(to-klht-wavv) 1-0.2-0.2 % Drops 1 drp EACH EYE Q1H PRN (Reason: DRY EYES) Qty: 0 0RF Nasal Moisturizing 0.65 % aerosol,spray 2 spray intranasal Q2H PRN (Reason: dry nasal passages) Qty: 50 0RF prednisone 20 mg tablet 20 mg PO BID Qty: 7 0RF Rx Instructions: 1 twice a day for 3 days, then 1-1/2 daily for 3 days, then 1 daily for 3 days then discontinue medication furosemide [Lasix] 40 mg tablet 60 mg PO BID Qty: 1 0RF Continued cholecalciferol (vitamin D3) 5,000 unit capsule 5,000 unit PO DAILY rosuvastatin 20 mg tablet 20 mg PO DAILY docusate sodium 100 mg capsule 100 mg PO BID Rx Instructions: noon and bedtime pramipexole 0.5 MG tablet 0.5 mg PO TID ferrous sulfate 325 MG tablet 65 mg PO DAILY PreserVision AREDS 2,148 mcg-113 mg-45 mg-17.4mg tablet 1 tab PO BID trazodone 50 mg Tablet 50 mg PO QHS metoprolol succinate 100 mg tablet extended release 24 hr 100 mg PO DAILY Qty: 90 3RF gabapentin 600 mg tablet 1,200 mg PO QHS amlodipine 5 mg tablet 5 mg PO DAILY Qty: 90 3RF losartan 50 mg tablet 50 mg PO BID Qty: 180 3RF Discontinued clindamycin phosphate 1 % solution topical diclofenac sodium 1 % gel topical folic acid 1 MG tablet 1 mg PO DAILY@1200 cyanocobalamin (vitamin B-12) 1,000 MCG/ML solution 1,000 mcg IM Q30D Rhinase 15-0.17-20-0.22 % Gel 1 ea INTRANASAL PRN PRN (Reason: DRY NOSE) albuterol sulfate [Ventolin HFA] 90 mcg/actuation HFA aerosol inhaler 1 - 2 puff inhalation Q4H PRN PRN (Reason: Wheezing) Qty: 1 0RF Trelegy Ellipta 100-62.5-25 mcg blister with device 1 inh inhalation DAILY Qty: 3 3RF Referrals / Follow Up: Fast,Fany, [Primary Care Provider] - Disposition Disposition (needs filled in before D/C Order can be placed): [facility] Facility Charges/Coding Visit Charges Inpatient E&M: 32206 Disch Hosp >30min
--- NOTE | 2024-04-26 12:24 | PHA.DC.MR.R ---
Pharmacy [facility] Med Reconciliation Pharmacy Service has performed discharge medication reconciliation for this patient. The patient's discharge medication list was reviewed for discrepancies and discrepancies were resolved. Medications at Discharge Home Medications pramipexole 0.5 mg tablet 0.5 mg PO TID parkinsons 12/04/16 docusate sodium 100 mg capsule 100 mg PO BID bowels 10/20/17 ferrous sulfate 325 mg (65 mg iron) tablet 65 mg PO DAILY supplement 02/01/19 cholecalciferol (vitamin D3) 125 mcg (5,000 unit) capsule 5,000 unit PO DAILY cholesterol 03/30/19 trazodone 50 mg tablet 50 mg PO QHS sleep 03/21/21 rosuvastatin 20 mg tablet 20 mg PO DAILY cholesterol 03/05/22 vitamins A,C,D-zhru-padesi 2,148 mcg-113 mg-45 mg-17.4 mg tablet (PreserVision AREDS) 1 tab PO BID eye health 03/27/22 metoprolol succinate 100 mg tablet,extended release 24 hr 100 mg PO DAILY bp,heart #90 tabs 08/18/23 gabapentin 600 mg tablet 1,200 mg PO QHS nerve pain 09/23/23 amlodipine 5 mg tablet 5 mg PO DAILY htn #90 tabs 12/11/23 losartan 50 mg tablet 50 mg PO BID #180 TABLETS 03/19/24 acetaminophen 325 mg tablet 650 mg (2 x 325 mg) PO Q6H PRN PRN Pain 1-10 Or Fever >100.7 #0 tabs 04/26/24 albuterol sulfate 2.5 mg/3 mL (0.083 %) solution for nebulization 2.5 mg (3 mL) inhalation Q2H PRN PRN SOB &/OR WHEEZING #0 mL 04/26/24 ipratropium 0.5 mg-albuterol 3 mg (2.5 mg base)/3 mL nebulization soln 3 ml inhalation 4X/DAY #0 mL 04/26/24 levothyroxine 50 mcg tablet 50 mcg PO DAILY@0600 #0 tabs 04/26/24 melatonin 3 mg tablet 3 mg PO QHS PRN PRN Insomnia #0 tabs 04/26/24 peg 208-klbltdtqokjm-mnzbyzix 1 %-0.2 %-0.2 % eye drops (Artificial Tears ([id number])) 1 drp EACH EYE Q1H PRN DRY EYES #0 mL 04/26/24 prednisone 20 mg tablet 20 mg PO BID #7 tabs 04/26/24 sennosides 8.6 mg-docusate sodium 50 mg tablet (Stimulant Laxative Plus) 2 tab PO BID #0 tabs 04/26/24 sodium chloride 0.65 % nasal spray aerosol (Nasal Moisturizing) 2 spray intranasal Q2H PRN dry nasal passages #50 mL 04/26/24
--- NOTE | 2024-04-26 14:23 | NURSING ---
Report called to TCU. Okay to bring patient over at this time.
--- NOTE | 2024-04-26 15:16 | CASEMGMT ---
MARCO ANTONIO called patient's daughter Tiana and let her know patient was moved over to [facility] TCU and he went to room 10. MARCO ANTONIO also left her the phone number for the nurses station in TCU. Aaliyah GLASGOW
== END 2024-04-26 14:24 | disposition skilled nursing facility (03) | DRG 193 ==
LOC: ED 18:27 → PCU 19:03
PROVIDERS: Internal Medicine; Admitting Provider Internal Medicine; Emergency Provider Emergency Medicine; PCP Internal Medicine; Visit Provider Internal Medicine
DX: J10.1 Influenza due to other identified influenza virus with other respiratory manifestations (principal); I50.43 Acute on chronic combined systolic (congestive) and diastolic (congestive) heart failure; I48.21 Permanent atrial fibrillation; J44.1 Chronic obstructive pulmonary disease with (acute) exacerbation; Z68.41 Body mass index [BMI] 40.0-44.9, adult; I13.0 Hypertensive heart and chronic kidney disease with heart failure and stage 1 through stage 4 chronic kidney disease, or unspecified chronic kidney disease; J96.11 Chronic respiratory failure with hypoxia; I27.20 Pulmonary hypertension, unspecified; N18.31 Chronic kidney disease, stage 3a; G20.A1 Parkinson's disease without dyskinesia, without mention of fluctuations; E03.9 Hypothyroidism, unspecified; I07.1 Rheumatic tricuspid insufficiency; J43.9 Emphysema, unspecified; I48.91 Unspecified atrial fibrillation; E66.01 Morbid (severe) obesity due to excess calories; G47.33 Obstructive sleep apnea (adult) (pediatric); E78.5 Hyperlipidemia, unspecified; I25.10 Atherosclerotic heart disease of native coronary artery without angina pectoris; Z99.81 Dependence on supplemental oxygen; Z79.51 Long term (current) use of inhaled steroids; Z87.891 Personal history of nicotine dependence; Z95.1 Presence of aortocoronary bypass graft; Z95.5 Presence of coronary angioplasty implant and graft; Z85.118 Personal history of other malignant neoplasm of bronchus and lung
CPT/HCPCS: 36415; 71046; 80048; 80061; 83735; 83880; 84443; 84484; 85025; 87040; 87631; 93005; 93306; 94002; 94003; 94640; 94668; 97110; 97116; 97162; 97166; 97530; 97535; 99285; A4216; J1940

== ENCOUNTER 2024-04-26 14:32 | Inpatient (IN) | payer MEDICARE, OTHER, SELFPAY ==
[2024-04-26 14:45] VITALS: BP 151/68; PULSE 81; RESP 16; TEMP 36.4; O2SAT 95
[2024-04-26 15:00] VITALS: BMI 38.7
--- NOTE | 2024-04-26 17:14 | US_ITS ---
STUDY: SUPERFICIAL ULTRASOUND - REASON FOR EXAM: Male, 78 years old. Right lower abdominal lump. TECHNIQUE: A superficial ultrasound was performed with real-time and static barone-scale imaging. COMPARISON: None. FINDINGS: Multiple sonographic images obtained of the palpable lump in the right lower abdominal wall. The lesion is hypoechoic but solid without Doppler evidence of internal vascularity. Lesion measures 1.7 x 10.4 x 2.6 cm and is located in the subcutaneous fat. US/Abdomen Limited IMPRESSION: Solid subcutaneous lesion right lower abdominal wall. Appearance is nonspecific and possible etiologies include both benign and malignant entities. Electronically Signed: Yahir Torres MD at 19:11 EST ,
[2024-04-26 18:51] VITALS: PULSE 79; RESP 24; O2SAT 95
[2024-04-26] MEDS: Ipratropium/Albuterol Sulfate 3 ML AMPUL.NEB INHALATION (18:51)
--- NOTE | 2024-04-26 19:34 | HP.PCM_ITS ---
HPI - General General Date of Admission: 04/26/24 Date of Service: 04/26/24 Chief Complaint: Here for rehabilitation. HPI Narrative 04/22/2024 JV DURHAM, is a 78 Male who presents to [facility] ED with shortness of breath. COPD, chronic 4 liters oxygen at home, presents with cough, not feeling well. Recent Amoxicillin, steroid shot which helped for a while. SOB with walking short distance, Increased oxygen requirements at home. +Influenza A. Rocephin, Azithromycin, Furosemide given for pneumonia/CHF. 04/22/2024 Admit [facility]. +influenza A, treated with Tamiflu. Azithromycin, steroids, nebs for COPD exacerbation. IV Lasix for acute on chronic HFpEF. 04/22/2024 Echo EF 60%. Mild global RS systolic dysfunction. Severe pulmonary hypertension. 04/23/2024 Feeling better. Fluid restriction, IV Lasix for acute on chronic HFpEF. 04/24/2024 Weak, short of breath going to bathroom. PT/OT SNF. creatinine improving. 04/25/2024 SOB better. Improved, elevated WBC stable, Chest X-ray negative for consolidation. 04/26/2024 Admit to TCU with debility, here for rehabilitation, strengthening, prior to discharge home with . [facility] Medical History History of lung cancer Adrenal mass History of Parkinson's disease History of atrial fibrillation Hx of cancer of lung Pulmonary hypertension Emphysema, unspecified History of echocardiogram History of stress test Hypertension History of atrial fibrillation Hx of fracture of ankle COVID Chronic combined systolic and diastolic CHF (congestive heart failure) Severe pulmonary arterial systolic hypertension Wears glasses Uses wheelchair Walker as ambulation aid Ambulates with cane Arthritis Anemia Migraine headache Injury of head and neck Parkinson's disease Gastric reflux Former smoker BiPAP (biphasic positive airway pressure) dependence COPD (chronic obstructive pulmonary disease) On home oxygen therapy History of pain when walking History of edema Amputated great toe of left foot Amputation of one or more toes Chronic ulcer of left foot with fat layer exposed Hammer toe of left foot Toe osteomyelitis Right ventricular dilation, secondary Right ventricular systolic dysfunction Respiratory failure with hypoxia Diverticular disease Polyp of colon, adenomatous Chronic gastritis Multiple premature ventricular complexes Longstanding persistent atrial fibrillation Hyperlipidemia Acute kidney injury NSTEMI (non-ST elevated myocardial infarction) (12/02/19) Sepsis Gastric AVM Adenocarcinoma of lung, stage 1 GI bleed Iron deficiency anemia due to chronic blood loss Atherosclerosis of coronary artery of [place] heart without angina pectoris Cancer of upper lobe of left lung 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 Benign essential hypertension HEBER (obstructive sleep apnea) Dementia Parkinsons Essential tremor GERD (gastroesophageal reflux disease) Alcohol dependence Home Medications ?Medication ?Instructions ?Recorded ?Last Taken ?Type pramipexole 0.5 mg tablet 0.5 mg PO TID parkinsons 12/04/16 04/26/24 05:52 History docusate sodium 100 mg capsule 100 mg PO BID bowels 10/20/17 07/14/20 History ferrous sulfate 325 mg (65 mg 65 mg PO DAILY supplement 02/01/19 07/14/20 History iron) tablet cholecalciferol (vitamin D3) 125 5,000 unit PO DAILY cholesterol 03/30/19 07/14/20 History mcg (5,000 unit) capsule trazodone 50 mg tablet 50 mg PO QHS sleep 03/21/21 Unknown History rosuvastatin 20 mg tablet 20 mg PO DAILY cholesterol 03/05/22 04/26/24 09:15 History vitamins A,C,J-axif-unperm 2,148 1 tab PO BID eye health 03/27/22 Unknown History mcg-113 mg-45 mg-17.4 mg tablet (PreserVision AREDS) metoprolol succinate 100 mg 100 mg PO DAILY bp,heart #90 tabs 08/18/23 04/26/24 09:10 Rx tablet,extended release 24 hr gabapentin 600 mg tablet 1,200 mg PO QHS nerve pain 09/23/23 Unknown History amlodipine 5 mg tablet 5 mg PO DAILY htn #90 tabs 12/11/23 04/26/24 09:15 Rx losartan 50 mg tablet 50 mg PO BID BP #180 TABLETS 03/19/24 04/26/24 09:15 Rx acetaminophen 325 mg tablet 650 mg (2 x 325 mg) PO Q6H PRN PRN 04/26/24 04/25/24 21:15 Rx Pain 1-10 Or Fever >100.7 #0 tabs albuterol sulfate 2.5 mg/3 mL 2.5 mg (3 mL) inhalation Q2H PRN 04/26/24 Unknown Rx (0.083 %) solution for nebulization PRN SOB &/OR WHEEZING #0 mL furosemide 40 mg tablet (Lasix) 60 mg (1.5 x 40 mg) PO BID fluid 04/26/24 Unknown Rx #1 TAB ipratropium 0.5 mg-albuterol 3 mg 3 ml inhalation 4X/DAY breathing 04/26/24 04/26/24 11:50 Rx (2.5 mg base)/3 mL nebulization #0 mL soln levothyroxine 50 mcg tablet 50 mcg PO DAILY@0600 Thyroid #0 04/26/24 04/26/24 05:55 Rx tabs melatonin 3 mg tablet 3 mg PO QHS PRN PRN Insomnia #0 04/26/24 04/25/24 21:15 Rx tabs peg 504-peflxwxndmmu-urxhcgto 1 1 drp EACH EYE Q1H PRN DRY EYES #0 04/26/24 04/25/24 10:10 Rx %-0.2 %-0.2 % eye drops mL (Artificial Tears ([id number])) prednisone 20 mg tablet 20 mg PO BID Steroid #7 tabs 04/26/24 Unknown Rx sennosides 8.6 mg-docusate sodium 2 tab PO BID Constipation #0 tabs 04/26/24 04/26/24 09:15 Rx 50 mg tablet (Stimulant Laxative Plus) sodium chloride 0.65 % nasal spray 2 spray intranasal Q2H PRN dry 04/26/24 04/26/24 09:10 Rx aerosol (Nasal Moisturizing) nasal passages #50 mL Allergy/AdvReac Type Severity Reaction Status Date / Time No Known Allergies Allergy Verified 04/22/24 16:46 Family History Sister Alcoholism Cancer Mother Arthritis Father Arthritis Brother Cancer Surgical History History of transurethral resection of prostate Hx of toe surgery SURGICAL REMOVAL LEFT GREAT TOE History of right and left heart catheterization (12/04/16) History of colonoscopy (03/22/20) History of esophagogastroduodenoscopy (03/22/20) History of left heart catheterization (2016) History of coronary artery stent placement (12/23/06) Status post insertion of iliac artery stent (08/04/12) Status post surgical removal of neoplasm of skin History of tonsillectomy and adenoidectomy History of hammer toe correction History of open reduction and internal fixation (ORIF) procedure History of open reduction and internal fixation (ORIF) procedure History of lobectomy of lung History of cardioversion (12/2016) H/O coronary artery bypass surgery (02/14/06) Social History (Updated 04/26/24 @ 19:[address] Terrell Ortiz MD) household members: spouse Smoking Status: Former smoker quit date: 11/14/93 how long ago did patient quit smokin years ago second hand exposure: No alcohol intake: current alcohol intake frequency: holidays/special occasions only Alcohol type: wine substance use type: does not use caffeine: Yes Type: coffee Number of servings: 1 what type of physical activity do you participate in: none frequency: does not exercise seatbelt use: always ROS Constitutional Constitutional: Reports weakness; Denies chills, fever(s) or weight gain ENT HEENT: Denies headache(s), nasal congestion or nasal discharge Cardiovascular Cardiovascular: Denies chest pain or palpitations Respiratory/Chest Respiratory/Chest: Reports shortness of breath with exertion; Denies cough or excessive phlegm production Gastrointestinal Gastrointestinal: Denies abdominal pain, nausea or vomiting Genitourinary Genitourinary: Denies dysuria Musculoskeletal Musculoskeletal: Denies joint pain or joint swelling Integumentary Integumentary: Denies rash or wounds Neurologic Neurologic: Denies focal weakness, numbness or tingling Psychiatric Psychiatric: Denies anxiety, auditory hallucinations, depression, homicidal ideation or suicidal ideation Vital Signs Vital Signs Vital Signs: 04/26/24 14:45 Temperature 97.6 F L Temperature Source Temporal Pulse Rate 81 Respiratory Rate 16 Blood Pressure 151/68 H Blood Pressure Mean 95 Blood Pressure Source Monitor Blood Pressure Position Semi-Fowlers Blood Pressure Location Right Arm Pulse Ox 95 Oxygen Delivery Method Room Air Weight Weight: 122.6 kg Body Mass Index (BMI) 38.7 Physical Exam Const alert General Appearance: cooperative HEENT normocephalic Eyes PERRL and EOMs intact bilaterally Neck supple, no JVD and no carotid bruits Resp normal respiratory effort, normal air movement and clear to auscultation bilaterally Cardio regular rate and regular rhythm GI normal to inspection, nondistended, normoactive bowel sounds, non-tender and non-distended Extremity normal capillary refill General Extremity: Negative for edema Skin no rashes or lesions noted General Skin Exam: no breakdown Psych affect normal Appearance: appropriate Results Imaging Radiology Impression Abdomen Ultrasound 04/26/24 17:14 IMPRESSION: Solid subcutaneous lesion right lower abdominal wall. Appearance is nonspecific and possible etiologies include both benign and malignant entities. Electronically Signed: Yahir Torres MD at 19:11 EST , Assessment & Plan Assessment/Plan (1) Debility: (2) Acute and chronic respiratory failure: (3) Influenza A: (4) COPD exacerbation: (5) Acute on chronic heart failure with preserved ejection fraction (HFpEF): (6) History of lung cancer: (7) Parkinsons: (8) Atrial fibrillation: (9) HEBER (obstructive sleep apnea): (10) Iron deficiency anemia: (11) Vitamin D deficiency: (12) Vitamin B12 deficiency: (13) Insomnia: (14) Hyperlipidemia: QUALIFIERS: Hyperlipidemia type: unspecified Qualified Code(s): E78.5 - Hyperlipidemia, unspecified (15) Neuropathic pain: (16) Essential (primary) hypertension: PLAN: Plan 78 year old male with below past medical history hospitalized for acute on chronic respiratory failure 2/2 influenza A, copd exacerbation, acute on chronic HFpEF, admitted to TCU with debility, here for rehabilitation, strengthening, prior to discharge home with . * Debility - PT/OT. * Pain - Tylenol 1000mg q6 prn pain (1-10). * Bowel - senna/colace 2 tablets bid, Magnesium citrate 300mL po daily prn. * Adult immunization - Administer pneumonia vaccine, covid vaccine, flu vaccine as appropriate. * DVT prophylaxis - Hold, right lower abdomen hematoma from Lovenox. * COPD - Albuterol 2.5mg q2 prn, Duoneb 3ML q6HRT, Prednisone taper. * Hypertension - Metoprolol succinate 100mg daily, Losartan 50mg bid, Amlodipine 5mg daily. * Hyperlipidemia - Atorvastatin 40mg qhs. * Vitamin D deficiency - D3 125mcg daily. * Iron deficiency anemia - Ferrous sulfate 325mg daily, * Chronic HFpEF - Metoprolol succinate 100mg daily, Losartan 50mg bid, Furosemide 60mg bid. * Neuropathic pain - Gabapentin 1200mg qhs. * Hypothyroidism - Levothyroxine 50mcg daily. 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 * Macular degeneration - Healthy Eyes 1 capsule bid. * Dry Eyes - Artificial Tears 2gtt ou q1 prn. * Parkinson Disease - Mirapex 0.5mg tid. * Dry nose - Rosebud Emily 2 sprays nasal q2h prn.
[2024-04-26] MEDS: Multivitamin (Healthy Eyes) Capsule 1 CAP PO (21:05)
[2024-04-26] MEDS: Senna/Docusate Sodium 1 Tablet 2 TABLET PO (21:06)
[2024-04-26] MEDS: Atorvastatin Calcium 40 MG Tablet PO (21:06)
[2024-04-26] MEDS: traZODone 50 MG Tablet PO (21:06)
[2024-04-26] MEDS: Gabapentin 600 MG Tablet 1200 MG PO (21:07)
[2024-04-26] MEDS: Pramipexole Di-HCl 0.5 MG Tablet PO (21:07)
[2024-04-26] MEDS: Losartan Potassium 50 MG Tablet PO (21:13)
[2024-04-26] MEDS: Sodium Chloride 0.65% 1 SPRAY SPRAY.BTL 2 SPRAY NASAL (21:15)
[2024-04-26 21:30] VITALS: O2SAT 95
[2024-04-27] VITALS (10 sets, daily range): BP systolic 134–140; BP diastolic 72–77; PULSE 71–88; RESP 16–24; TEMP 36–36.5; O2SAT 90–97; BMI 38.7
[2024-04-27] MEDS: Ipratropium/Albuterol Sulfate 3 ML AMPUL.NEB INHALATION ×2 (00:18→07:04)
[2024-04-27] MEDS: Furosemide 20 MG Tablet 60 MG PO ×2 (06:02→13:08)
[2024-04-27 06:03] LABS: Absolute Lymphocyte Count 0.42 X10^3/uL (0.83-4.51); Basophil# 0.07 X10^3/uL; Basophil% 0.3 % (0-1); Hematocrit 40.7 % (40-54); Hemoglobin 13.2 g/dL (13.0-16.5); Lymphocyte # 0.42 X10^3/ul (0.83-4.51); Lymphocyte % 1.6 % (19-41); Mean Corp Hgb Conc 32.4 g/dL (32-36); Mean Corpuscular Hgb 29.9 pg (27.0-32.0); Mean Corpuscular Volume 92.1 fL (80-94); Mean Platelet Vol. 10.3 fl (6.2-12.0); Monocyte# 1.26 X10^3/uL; Monocyte% 4.8 % (0-10); NRBC Flagged by Analyzer 0 % (0-5); Neutrophil # 24.03 X10^3/uL (2.7-7.7); POSITIVE DIFFERENTIAL YES; Platelet Count 194 K/mm3 (150-450); RBC Distribution Width CV 14.9 % (11.6-14.6); RBC Distribution Width SD 51.2 fl (35.1-43.9); Red Blood Count 4.42 M/mm3 (4.6-6.2); White Blood Count 26.4 K/mm3 (4.4-11.0)
[2024-04-27] MEDS: Levothyroxine 50 MCG Tablet PO (06:03)
[2024-04-27] MEDS: Pramipexole Di-HCl 0.5 MG Tablet PO ×3 (06:03→21:43)
[2024-04-27 06:06] LABS: Differential Indicated SCAN CRITERIA MET
[2024-04-27 06:20] LABS: Anion Gap 5 (5-15); BUN 43 mg/dL (7-18); BUN/Creat Ratio 29.1 RATIO (10-20); Calcium,Total 8.3 mg/dL (8.5-10.1); Chloride 103 mmol/L (98-107); Creatinine, Serum 1.48 mg/dL (0.70-1.30); EST Glomerular Filtration Rate 49 mL/min (>60); Est Glom Filt Rate - Afr Amer 59 mL/min (>60); Estimated Creatinine Clearance 54.02 ml/min; Glucose 172 mg/dL (74-106); Potassium 4.2 mmol/L (3.5-5.1); Sodium Level 140 mmol/L (136-145)
[2024-04-27 06:45] LABS: Anisocytosis 2+; Macrocytosis 1+; Ovalocyte 1+; Platelet Estimate ADEQUATE (ADEQ)
[2024-04-27 06:46] LABS: Bite Cell RARE
[2024-04-27] MEDS: amLODIPine 5 MG Tablet PO (09:06)
[2024-04-27] MEDS: Ferrous Sulfate 325 MG Tablet PO (09:06)
[2024-04-27] MEDS: Multivitamin (Healthy Eyes) Capsule 1 CAP PO ×2 (09:06→21:44)
[2024-04-27] MEDS: Losartan Potassium 50 MG Tablet PO ×2 (09:07→21:45)
[2024-04-27] MEDS: Cholecalciferol (Vit D3) 125 MCG CAPSULE (5,000 UNITS) PO (09:07)
[2024-04-27] MEDS: Senna/Docusate Sodium 1 Tablet 2 TABLET PO ×2 (09:07→21:43)
[2024-04-27] MEDS: predniSONE 20 MG Tablet PO ×2 (09:07→17:09)
[2024-04-27] MEDS: Metoprolol(XL)Succ 100 MG Tablet PO (09:07)
[2024-04-27] MEDS: Menthol/Lanolin/Calamine/Znox 113 GM Tube 1 APPLIC TOPICAL ×2 (09:10→21:50)
[2024-04-27] MEDS: Nystatin Powder 15gm Bottle 1 APPLIC TOPICAL ×2 (09:11→21:47)
[2024-04-27] MEDS: Tuberculin,Purif.prot.deriv. 50 TU/ML Vial 0.1 ML ID (10:37)
[2024-04-27] MEDS: FLU VACCINE **HIGH DOSE** TV 24-25 180 MCG/0.5 ML SYRINGE IM (11:23)
[2024-04-27] MEDS: NYSTATIN 500,000 UNIT/5 ML UDC 500000 UNIT PO ×3 (13:08→21:42)
--- NOTE | 2024-04-27 15:41 | PCM.PN.DRR ---
Documented by User: Rula Reyes 04/27/24 16:18 TCU RX Drug Regimen Review Subjective/Objective Subjective/Objective Subjective: TCU Admission. 78 YOM presented to the ER with SOB. Hospitalized for acute on chronic respiratory failure 2/2 influenza A, copd exacerbation, acute on chronic HFpEF. Admitted to TCU with debility for strengthening and rehabilitation. Objective: Allergies No Known Allergies Allergy (Verified 04/22/24 16:46) Current Medications Generic Name Dose Route Start Last Admin Trade Name Freq PRN Reason Stop Dose Admin Acetaminophen 1,000 mg 04/26/24 19:58 Acetaminophen 500 Mg Tablet PO Q6H PRN PRN Pain Score 1-10 Albuterol Sulfate 2.5 mg 04/26/24 15:15 Albuterol 2.5 Mg/3 Ml Vial.Neb. INHALATION Q2H PRN PRN SOB &/OR WHEEZING Albuterol/Ipratropium 3 ml 04/26/24 17:00 04/27/24 07:04 Ipratropium/Albuterol Sulfate 3 Ml Ampul.Neb INHALATION 3 ml Q6H.RT NATALIE Administration Amlodipine Besylate 5 mg 04/27/24 10:00 04/27/24 09:06 Amlodipine 5 Mg Tablet PO 5 mg DAILY NATALIE Administration Protocol Atorvastatin Calcium 40 mg 04/26/24 22:00 04/26/24 21:06 Atorvastatin Calcium 40 Mg Tablet PO 40 mg QHS NATALIE Administration Calamine/Phenol 1 applic 04/27/24 10:00 04/27/24 09:10 Menthol/Lanolin/Calamine/Znox 113 Gm Tube TOPICAL 1 applic BID NATALIE Administration Protocol Cholecalciferol 125 mcg 04/27/24 10:00 04/27/24 09:07 Cholecalciferol (Vit D3) 125 Mcg Capsule (5,000 Units) PO 125 mcg DAILY NAATLIE Administration Ferrous Sulfate 325 mg 04/27/24 08:00 04/27/24 09:06 Ferrous Sulfate 325 Mg Tablet PO 325 mg DAILYCM NATALIE Administration Furosemide 60 mg 04/27/24 06:00 04/27/24 13:08 Furosemide 20 Mg Tablet PO 60 mg BIDLX NATALIE Administration Protocol Gabapentin 1,200 mg 04/26/24 22:00 04/26/24 21:07 Gabapentin 600 Mg Tablet PO 1,200 mg QHS NATALIE Administration Glycerin/Hypromellose/Polyethylene 2 drp 04/26/24 15:04 Glycerin/Hypromellose/Ghw887 15 Ml Bottle EACH EYE Q1H PRN DRY EYES Levothyroxine Sodium 50 mcg 04/27/24 06:00 04/27/24 06:03 Levothyroxine 50 Mcg Tablet PO 50 mcg DAILY@0600 NATALIE Administration Losartan Potassium 50 mg 04/26/24 22:00 04/27/24 09:07 Losartan Potassium 50 Mg Tablet PO 50 mg BID NATALIE Administration Protocol Magnesium Citrate 300 ml 04/26/24 19:57 Magnesium Citrate 300 Ml PO DAILY PRN Constipation Melatonin 3 mg 04/26/24 15:15 Melatonin 3 Mg Tablet PO QHS PRN PRN Insomnia Metoprolol Succinate 100 mg 04/27/24 10:00 04/27/24 09:07 Metoprolol(Xl)Succ 100 Mg Tablet PO 100 mg DAILY NATALIE Administration Protocol Multivitamins/Minerals 1 cap 04/26/24 22:00 04/27/24 09:06 Multivitamin (Healthy Eyes) Capsule PO 1 cap BID NATALIE Administration Nystatin 1 applic 04/27/24 10:00 04/27/24 09:11 Nystatin Powder 15gm Bottle TOPICAL 1 applic BID NATALIE Administration Protocol Nystatin 500,000 unit 04/27/24 12:00 04/27/24 13:08 Nystatin 500,000 Unit/5 Ml Udc PO 05/07/24 12:01 500,000 unit 4X/DAY NATALIE Administration Pramipexole Dihydrochloride 0.5 mg 04/26/24 22:00 04/27/24 13:09 Pramipexole Di-Hcl 0.5 Mg Tablet PO 0.5 mg TID NATALIE Administration Prednisone 20 mg 04/27/24 10:00 04/27/24 09:07 Prednisone 20 Mg Tablet PO 04/29/24 17:01 20 mg BIDCM NATALIE Administration Prednisone 30 mg 04/30/24 08:00 Prednisone 10 Mg [facility]/02[facility] mg 05/03/24 08:00 Prednisone 20 Mg Tablet PO 05/05/24 [facility] Senna/Docusate Sodium 2 tablet 04/26/24 22:00 04/27/24 09:07 Senna/Docusate Sodium 1 Tablet PO 2 tablet BID NATALIE Administration Sodium Chloride 2 spray 04/26/24 15:15 04/26/24 21:15 Sodium Chloride 0.65% 1 [place] Lakeside.Btl NASAL 2 spray Q2H PRN Administration dry nasal passages Sodium Chloride 10 - 40 ml 04/26/24 15:46 0.9% Saline Lock 10 Ml Syringe IV UD PRN SALINE FLUSH Trazodone HCl 50 mg 04/26/24 22:00 04/26/24 21:06 Trazodone 50 Mg Tablet PO 50 mg QHS NATALIE Administration Tuberculin PPD 0.1 ml 05/04/24 10:00 Tuberculin,Purif.Prot.Deriv. 50 Tu/Ml Vial ID 05/04/24 10:01 X1 ONE Problem List Essential (primary) hypertension (Acute) Neuropathic pain (Acute) Insomnia (Acute) Vitamin B12 deficiency (Acute) Vitamin D deficiency (Acute) Iron deficiency anemia (Acute) Atrial fibrillation (Acute) Acute on chronic heart failure with preserved ejection fraction (HFpEF) (Acute) Influenza A (Acute) Acute and chronic respiratory failure (Chronic) Debility (Acute) COPD exacerbation (Chronic) History of lung cancer (Acute) Parkinsons (Acute) Hyperlipidemia (Chronic) HEBER (obstructive sleep apnea) (Chronic) Vital Signs Temp Pulse Resp BP Pulse Ox O2 Del Method O2 Flow Rate 97.7 F L 79 18 134/72 H 97 Nasal Cannula 2 04/27/24 14:30 04/27/24 14:30 04/27/24 14:30 04/27/24 14:30 04/27/24 14:30 04/27/24 14:30 04/27/24 14:30 Oxygen Flow Rate (L/min) 2 Oxygen Delivery Method Nasal Cannula Weight: 122.6 kg Body Mass Index (BMI) 38.7 Sodium 140 mmol/L (136-145) 04/27/24 05:25 Potassium 4.2 mmol/L (3.5-5.1) 04/27/24 05:25 Chloride 103 mmol/L (98-107) 04/27/24 05:25 Carbon Dioxide 33.0 mmol/L (21.0-32.0) H 04/27/24 05:25 Anion Gap 5 (5-15) 04/27/24 05:25 BUN 43 mg/dL (7-18) H 04/27/24 05:25 Creatinine 1.48 mg/dL (0.70-1.30) H 11/12/24 05:25 Est GFR (MDRD) Af Amer 59 mL/min (>60) L 04/27/24 05:25 Est GFR (MDRD) Non-Af 49 mL/min (>60) L 04/27/24 05:25 BUN/Creatinine Ratio 29.1 RATIO (10-20) H 04/27/24 05:25 Glucose 172 mg/dL (74-106) H 04/27/24 05:25 Assessment/Plan: 1. Pain: acetaminophen 1000mg PO Q6H PRN pain (1-10). Resident has not used and PRN doses. Please continue to monitor for increased pain and PRN usage. 2. Bowel: senna/docusate 2T PO BID and magnesium citrate 300ML PO daily PRN constipation. Resident has not used any PRN doses. Please continue to monitor PRN doses and constipation. Last documented bowel movement was 04/25. 3. Hypertension/HFpEF: metoprolol succinate 100mg PO daily, losartan 50mg PO BID, amlodipine 5mg PO daily, furosemide 60mg PO BID. Please continue to monitor BP (last 134/72), HR (last 79), renal function, potassium (last 4.2mmol/L), edema, sodium (last 140mmol/L). 4. COPD: albuterol nebulized solution 2.5mg PO Q2H PRN SOB/wheezing, Duoneb 3mL inhalation Q6H.RT, prednisone taper thru 05/05/24. Please continue to monitor for SOB, wheezing, PRN usage, HR, glucose (last 172mg/dL), S/S of infection, WBC (last 26.4k/mm3), increased appetite and agitation. 5. Hyperlipidemia: atorvastatin 40mg PO QHS. Please continue to monitor lipid panel (last 04/23/24), LFTs (last 09/30/23) and muscle pain. 6. Hypothyroidism: levothyroxine 50mcg PO daily. Please continue to monitor TSH (last 04/23/24) and S/S of hypo/hyperthyroidism. 7. Iron deficiency anemia: ferrous sulfate 325mg PO daily. Please continue to monitor for hemoglobin (last 13.2g/dL), dark stools, constipation and iron studies (last 03/31/24). 8. Parkinson disease: pramipexole 0.5mg PO TID. Please continue to monitor for S/S Parkinson disease, dizziness and drowsiness. 9. Vitamin D deficiency/macular degeneration: cholecalciferol 125mcg PO daily and healthy eyes 1C PO BID. Please consider ordering a vitamin D level as the last level was from 2021. Thanks. 10. Dry eyes/nose: artificial tears 2gtt OU Q1H PRN dry eyes and [place] nasal spray 2 sprays nasal Q2H PRN dry nasal passages. Resident has not used any artificial tears but has used 1 dose of [place] nasal spray. Please continue to monitor for dry eyes/nose and PRN usage. 11. Thrush: nystatin 500,000units PO 4x/day thru 05/07/24. Please continue to monitor for improvement in thrush. Assessment/Plan for indications treated with psychotropic medications: 1. Insomnia: trazodone 50mg PO QHS and melatonin 3mg PO QHS PRN insomnia. Please see physician note regarding GDR. No PRN dosages given. Please continue to monitor for excessive daytime drowsiness, insomnia, PRN usage, or agitation. 2. Neuropathic pain: gabapentin 1200mg PO QHS. GDR not appropriate as this medication is being used for neuropathy. Please continue to monitor for pain, falls/fractures (BEERs), renal function. Medical chart and medication regimen reviewed. The following medication irregularities or issues were identified: 1. Cholecalciferol 125mcg PO daily. Please consider ordering a vitamin D level as the last level was from 2021. Thanks. Date Date of Note: 04/27/24 Documented by User: Dr. Terrell Ortiz MD 04/27/24 17:03 TCU RX Drug Regimen Review Provider Comments Provider responsibility Provider Comments to Recommendations by Pharmacy Agree
--- NOTE | 2024-04-27 16:31 | CASEMGMT ---
Addendum entered by Nydia León 04/28/24 10:26: Care Coordination referral made via website. Original Note: Social Work SW met with patient to complete initial assessment. Introduced self and role. Verified/updated contacts. Pt's is deferring HCPOA to secondary, dtr, Ginny. is staying at Ginny's house while pt is admitted. See SW assessment for further details and barriers to DC. SW discussed resources for pt at DC, such as care coordination referral, MOW, VA aid and attendance as pt reports he is 100% VA service connected. Pt stated his dtr has already spoken to the [facility] for assistance. SW to also follow up for DC needs. SW educated to Medicare benefit and copay coverage. Pt confirmed code status as full code. SW will continue to follow for DC planning and support. SUJIT BernsteinW
[2024-04-27] MEDS: Gabapentin 600 MG Tablet 1200 MG PO (21:42)
[2024-04-27] MEDS: Atorvastatin Calcium 40 MG Tablet PO (21:45)
[2024-04-27] MEDS: traZODone 50 MG Tablet PO (21:46)
[2024-04-27 23:16] LABS: Vitamin D,25 Hydroxy 37.3 ng/mL
[2024-04-28] VITALS (12 sets, daily range): BP systolic 108–141; BP diastolic 58–70; PULSE 68–110; RESP 18–26; TEMP 37; O2SAT 89–99
[2024-04-28] MEDS: Ipratropium/Albuterol Sulfate 3 ML AMPUL.NEB INHALATION ×4 (00:42→19:45)
--- NOTE | 2024-04-28 00:57 | CPS ---
[0042] Pt. has home CPAP unit in his room. CPAP 13 with 3-4L bleed-in.
[2024-04-28] MEDS: Furosemide 20 MG Tablet 60 MG PO (05:55)
[2024-04-28] MEDS: Levothyroxine 50 MCG Tablet PO (05:56)
[2024-04-28] MEDS: NYSTATIN 500,000 UNIT/5 ML UDC 500000 UNIT PO ×4 (05:57→22:01)
[2024-04-28] MEDS: Pramipexole Di-HCl 0.5 MG Tablet PO ×3 (06:03→22:01)
[2024-04-28] MEDS: Ferrous Sulfate 325 MG Tablet PO (09:58)
[2024-04-28] MEDS: Multivitamin (Healthy Eyes) Capsule 1 CAP PO ×2 (09:59→22:01)
[2024-04-28] MEDS: Senna/Docusate Sodium 1 Tablet 2 TABLET PO ×2 (09:59→22:01)
[2024-04-28] MEDS: predniSONE 20 MG Tablet PO ×2 (09:59→17:18)
[2024-04-28] MEDS: Cholecalciferol (Vit D3) 125 MCG CAPSULE (5,000 UNITS) PO (09:59)
[2024-04-28] MEDS: Metoprolol(XL)Succ 100 MG Tablet PO (10:04)
[2024-04-28] MEDS: Losartan Potassium 50 MG Tablet PO ×2 (10:04→22:01)
[2024-04-28] MEDS: amLODIPine 5 MG Tablet PO (10:04)
[2024-04-28] MEDS: Menthol/Lanolin/Calamine/Znox 113 GM Tube 1 APPLIC TOPICAL ×2 (10:06→22:00)
[2024-04-28] MEDS: Nystatin Powder 15gm Bottle 1 APPLIC TOPICAL ×2 (10:06→22:01)
[2024-04-28] MEDS: Sodium Chloride 0.65% 1 SPRAY SPRAY.BTL 2 SPRAY NASAL (10:35)
[2024-04-28] MEDS: Albuterol 2.5 MG/3 ML VIAL.NEB. INHALATION ×2 (11:02→16:30)
--- NOTE | 2024-04-28 11:20 | RAD_ITS ---
STUDY: X-RAY CHEST REASON FOR EXAM: Male, 78 years old. Increased SOB TECHNIQUE: PA and lateral views of the chest. COMPARISON: Comparison is made with prior study April 22, 2024. FINDINGS: A right-sided Port-A-Cath is seen with the tip at the junction of the superior vena cava and right atrium. Interval increase in interstitial markings at the lung bases with areas of confluence more prominent at the right lung base suggestive of increasing interstitial CHF. Stable scarring at the left lung apex. There is no demonstrated pleural abnormality. Sternal cerclage wires and vascular clips are present from a prior sternotomy and coronary artery bypass graft procedure (CABG). Mild cardiomegaly. Normal mediastinum and yovanny. Normal visualized pulmonary arteries. There is atherosclerotic calcification of the aortic arch with tortuosity. Normal visualized thoracic spine. Normal visualized ribs, clavicles, and shoulders. There is no demonstrated abnormality of the visualized soft tissue structures of the upper abdomen. RAD/Chest PA and Lateral IMPRESSION: Increased interstitial markings suggests a mild degree of CHF. Thyromegaly. Prior midline sternotomy. Electronically Signed: Navdeep Pacheco MD at 12:34 EST ,
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
[2024-04-28] MEDS: Furosemide 100 MG/10 ML Vial 80 MG IV (14:27)
[2024-04-28] MEDS: 0.9% Saline Lock 10 ML Syringe IV ×2 (14:29→22:07)
--- NOTE | 2024-04-28 14:46 | NURSING ---
Resident had increased SOB desating into the mid 80's with ambulation. SPO2 increased to 90% on 6 liters, respiratory was called and they administered breathing tx. Resident has moist cough and lung sounds. Dr. Ortiz updated and gave new order for CXR. CXR obtained and review and N.O. for daily weight, Lasix 80mg IV BID, recheck BMP 04/29/24. Resident currently resting in bed with CPAP on, denies additional needs at this time. Oxygen maintaining around 90-92% at this time
--- NOTE | 2024-04-28 15:33 | CHAPLAIN ---
Type of Pastoral Visit _x__ Initial Visit ___ Follow-up Visit ___ On-call Visit ___ General Patient Visit ___ Spiritual Assessment ___ Family Conference ___ Bereavement ___ Rapid Response ___ Code Blue ___ Other (describe below) Pastoral Care Referral From _x__ Patient ___ Family ___ Nurse ___ Physician ___ Trauma Surgeon ___ Director Custom ___ Other (describe below) Sacrament/Intervention _x__ Active listening ___ Anointing ___ Yarsani ___ Bereavement ___ Communion ___ Claudia exploration ___ _x__ Life review _x__ Prayer ___ Reconciliation ___ Sacrament of Sick _x__ Supportive presence ___ Wedding ___ Other (describe below) Pastoral Comments RN was attending to patient but he requested that this list of first job ideas stay I need you too; pt is on bi-pap but speaks through it pretty well; pt states that he is not feeling well and that his is in a [facility] with lung cancer and she never smoked in her life; pt states that they have had a long marriage and he doesn't want to be without her; pt is expressive and seeking of spiritual care and support; pt is talkative about his condition and his 's need; pt welcomes presence and prayer and holds on to the hand of this list of first job ideas as we speak and pray; pt would welcome more visits if possible
[2024-04-28] MEDS: Ensure Plus High Protein 120 ML LIQUID PO (17:19)
[2024-04-28] MEDS: Atorvastatin Calcium 40 MG Tablet PO (22:01)
[2024-04-28] MEDS: traZODone 50 MG Tablet PO (22:01)
[2024-04-28] MEDS: Gabapentin 600 MG Tablet 1200 MG PO (22:03)
[2024-04-29] VITALS (7 sets, daily range): BP systolic 105; BP diastolic 88; PULSE 74–88; RESP 18–26; TEMP 36.5; O2SAT 94–97
[2024-04-29] MEDS: Ipratropium/Albuterol Sulfate 3 ML AMPUL.NEB INHALATION ×3 (00:57→19:20)
[2024-04-29] MEDS: Pramipexole Di-HCl 0.5 MG Tablet PO ×3 (05:45→21:42)
[2024-04-29] MEDS: Levothyroxine 50 MCG Tablet PO (05:45)
[2024-04-29] MEDS: NYSTATIN 500,000 UNIT/5 ML UDC 500000 UNIT PO ×4 (05:45→21:42)
[2024-04-29 06:44] LABS: Anion Gap 5 (5-15); BUN 56 mg/dL (7-18); Calcium,Total 8.4 mg/dL (8.5-10.1); Chloride 104 mmol/L (98-107); Creatinine, Serum 1.75 mg/dL (0.70-1.30); EST Glomerular Filtration Rate 40 mL/min (>60); Est Glom Filt Rate - Afr Amer 49 mL/min (>60); Estimated Creatinine Clearance 45.68 ml/min; Glucose 202 mg/dL (74-106); Potassium 3.9 mmol/L (3.5-5.1); Sodium Level 141 mmol/L (136-145)
[2024-04-29] MEDS: Furosemide 100 MG/10 ML Vial 80 MG IV ×2 (06:48→14:51)
[2024-04-29] MEDS: 0.9% Saline Lock 10 ML Syringe IV ×3 (06:51→14:54)
[2024-04-29] MEDS: amLODIPine 5 MG Tablet PO (08:48)
[2024-04-29] MEDS: Metoprolol(XL)Succ 100 MG Tablet PO (08:48)
[2024-04-29] MEDS: Senna/Docusate Sodium 1 Tablet 2 TABLET PO ×2 (08:48→21:42)
[2024-04-29] MEDS: Ensure Plus High Protein 120 ML LIQUID PO ×3 (08:48→18:09)
[2024-04-29] MEDS: Multivitamin (Healthy Eyes) Capsule 1 CAP PO ×2 (08:48→21:42)
[2024-04-29] MEDS: Ferrous Sulfate 325 MG Tablet PO (08:48)
[2024-04-29] MEDS: predniSONE 20 MG Tablet PO ×2 (08:48→18:09)
[2024-04-29] MEDS: Losartan Potassium 50 MG Tablet PO ×2 (08:48→21:41)
[2024-04-29] MEDS: Nystatin Powder 15gm Bottle 1 APPLIC TOPICAL ×2 (08:49→21:42)
[2024-04-29] MEDS: Menthol/Lanolin/Calamine/Znox 113 GM Tube 1 APPLIC TOPICAL ×2 (08:49→21:42)
[2024-04-29] MEDS: Cholecalciferol (Vit D3) 125 MCG CAPSULE (5,000 UNITS) PO (08:49)
--- NOTE | 2024-04-29 16:26 | CASEMGMT ---
Social Work SW faxed [employer] form to [facility]. Nydia León, CORNICE UPHOLSTERER CIGARETTE ROLLER
--- NOTE | 2024-04-29 16:52 | NURSING ---
Pt. informed on current covid outbreak. Pt. daughter notified per pt. request.
[2024-04-29] MEDS: traZODone 50 MG Tablet PO (21:42)
[2024-04-29] MEDS: Gabapentin 600 MG Tablet 1200 MG PO (21:42)
[2024-04-29] MEDS: Atorvastatin Calcium 40 MG Tablet PO (21:42)
[2024-04-30] VITALS (9 sets, daily range): BP systolic 112–137; BP diastolic 57–65; PULSE 79–88; RESP 20–26; TEMP 36.4; O2SAT 90–96
[2024-04-30] MEDS: Ipratropium/Albuterol Sulfate 3 ML AMPUL.NEB INHALATION ×3 (00:20→19:22)
[2024-04-30 06:22] LABS: Anion Gap 4 (5-15); BUN 53 mg/dL (7-18); BUN/Creat Ratio 32.9 RATIO (10-20); Calcium,Total 8.8 mg/dL (8.5-10.1); Chloride 103 mmol/L (98-107); Creatinine, Serum 1.61 mg/dL (0.70-1.30); EST Glomerular Filtration Rate 44 mL/min (>60); Est Glom Filt Rate - Afr Amer 54 mL/min (>60); Estimated Creatinine Clearance 49.66 ml/min; Glucose 210 mg/dL (74-106); Potassium 4.2 mmol/L (3.5-5.1); Sodium Level 139 mmol/L (136-145)
[2024-04-30] MEDS: Furosemide 100 MG/10 ML Vial 80 MG IV ×2 (06:35→14:21)
[2024-04-30] MEDS: NYSTATIN 500,000 UNIT/5 ML UDC 500000 UNIT PO ×4 (06:36→21:04)
[2024-04-30] MEDS: Pramipexole Di-HCl 0.5 MG Tablet PO ×3 (06:37→21:04)
[2024-04-30] MEDS: Levothyroxine 50 MCG Tablet PO (06:38)
[2024-04-30] MEDS: Multivitamin (Healthy Eyes) Capsule 1 CAP PO ×2 (08:29→21:04)
[2024-04-30] MEDS: predniSONE 10 MG Tablet 30 MG PO (08:29)
[2024-04-30] MEDS: Metoprolol(XL)Succ 100 MG Tablet PO (08:29)
[2024-04-30] MEDS: Senna/Docusate Sodium 1 Tablet 2 TABLET PO ×2 (08:30→21:03)
[2024-04-30] MEDS: Losartan Potassium 50 MG Tablet PO ×2 (08:30→21:04)
[2024-04-30] MEDS: Ferrous Sulfate 325 MG Tablet PO (08:30)
[2024-04-30] MEDS: amLODIPine 5 MG Tablet PO (08:30)
[2024-04-30] MEDS: Menthol/Lanolin/Calamine/Znox 113 GM Tube 1 APPLIC TOPICAL ×2 (08:31→21:00)
[2024-04-30] MEDS: Nystatin Powder 15gm Bottle 1 APPLIC TOPICAL ×2 (08:31→21:04)
[2024-04-30] MEDS: Cholecalciferol (Vit D3) 125 MCG CAPSULE (5,000 UNITS) PO (08:32)
[2024-04-30] MEDS: Ensure Plus High Protein 120 ML LIQUID PO ×3 (08:35→17:39)
[2024-04-30] MEDS: 0.9% Saline Lock 10 ML Syringe IV (14:37)
[2024-04-30] MEDS: Atorvastatin Calcium 40 MG Tablet PO (21:04)
[2024-04-30] MEDS: traZODone 50 MG Tablet PO (21:04)
[2024-04-30] MEDS: Gabapentin 600 MG Tablet 1200 MG PO (21:06)
[2024-04-30] MEDS: Acetaminophen 500 MG Tablet 1000 MG PO (21:10)
[2024-04-30] MEDS: MELATONIN 3 MG TABLET PO (21:10)
[2024-05-01] VITALS (7 sets, daily range): BP systolic 118–124; BP diastolic 65–74; PULSE 80–84; RESP 18–22; TEMP 36.2–36.7; O2SAT 94–95; BMI 37.7
[2024-05-01] MEDS: Furosemide 100 MG/10 ML Vial 80 MG IV (06:24)
[2024-05-01] MEDS: Pramipexole Di-HCl 0.5 MG Tablet PO ×3 (06:25→21:32)
[2024-05-01] MEDS: Levothyroxine 50 MCG Tablet PO (06:25)
[2024-05-01] MEDS: NYSTATIN 500,000 UNIT/5 ML UDC 500000 UNIT PO ×4 (06:26→21:32)
[2024-05-01] MEDS: Ipratropium/Albuterol Sulfate 3 ML AMPUL.NEB INHALATION ×3 (07:00→19:31)
[2024-05-01 07:46] LABS: Anion Gap 3 (5-15); BUN 51 mg/dL (7-18); BUN/Creat Ratio 32.5 RATIO (10-20); Chloride 105 mmol/L (98-107); Creatinine, Serum 1.57 mg/dL (0.70-1.30); EST Glomerular Filtration Rate 46 mL/min (>60); Est Glom Filt Rate - Afr Amer 55 mL/min (>60); Estimated Creatinine Clearance 50.92 ml/min; Glucose 166 mg/dL (74-106); Potassium 3.8 mmol/L (3.5-5.1); Sodium Level 144 mmol/L (136-145)
[2024-05-01] MEDS: Ensure Plus High Protein 120 ML LIQUID PO ×3 (09:13→17:17)
[2024-05-01] MEDS: Cholecalciferol (Vit D3) 125 MCG CAPSULE (5,000 UNITS) PO (09:13)
[2024-05-01] MEDS: Metoprolol(XL)Succ 100 MG Tablet PO (09:14)
[2024-05-01] MEDS: amLODIPine 5 MG Tablet PO (09:14)
[2024-05-01] MEDS: Multivitamin (Healthy Eyes) Capsule 1 CAP PO ×2 (09:14→21:33)
[2024-05-01] MEDS: predniSONE 10 MG Tablet 30 MG PO (09:14)
[2024-05-01] MEDS: Ferrous Sulfate 325 MG Tablet PO (09:14)
[2024-05-01] MEDS: Senna/Docusate Sodium 1 Tablet 2 TABLET PO ×2 (09:14→21:32)
[2024-05-01] MEDS: Losartan Potassium 50 MG Tablet PO ×2 (09:14→21:33)
[2024-05-01] MEDS: Menthol/Lanolin/Calamine/Znox 113 GM Tube 1 APPLIC TOPICAL ×2 (09:15→21:29)
[2024-05-01] MEDS: Nystatin Powder 15gm Bottle 1 APPLIC TOPICAL ×2 (09:16→21:31)
[2024-05-01] MEDS: Furosemide 80 MG Tablet PO (13:23)
[2024-05-01] MEDS: Atorvastatin Calcium 40 MG Tablet PO (21:32)
[2024-05-01] MEDS: traZODone 50 MG Tablet PO (21:33)
[2024-05-01] MEDS: Acetaminophen 500 MG Tablet 1000 MG PO (21:45)
[2024-05-01] MEDS: MELATONIN 3 MG TABLET PO (21:45)
[2024-05-01] MEDS: Gabapentin 600 MG Tablet 1200 MG PO (21:46)
[2024-05-02] VITALS (9 sets, daily range): BP systolic 107–138; BP diastolic 55–78; PULSE 69–84; RESP 16–18; TEMP 36.2; O2SAT 94–98; BMI 37.4
[2024-05-02] MEDS: Ipratropium/Albuterol Sulfate 3 ML AMPUL.NEB INHALATION ×3 (01:50→19:42)
[2024-05-02] MEDS: Levothyroxine 50 MCG Tablet PO (05:59)
[2024-05-02] MEDS: NYSTATIN 500,000 UNIT/5 ML UDC 500000 UNIT PO ×4 (05:59→22:40)
[2024-05-02] MEDS: Furosemide 80 MG Tablet PO ×2 (05:59→15:34)
[2024-05-02] MEDS: Pramipexole Di-HCl 0.5 MG Tablet PO ×3 (05:59→22:42)
[2024-05-02 07:35] LABS: Anion Gap 4 (5-15); BUN 49 mg/dL (7-18); BUN/Creat Ratio 34.3 RATIO (10-20); Calcium,Total 9.3 mg/dL (8.5-10.1); Chloride 105 mmol/L (98-107); Creatinine, Serum 1.43 mg/dL (0.70-1.30); EST Glomerular Filtration Rate 51 mL/min (>60); Est Glom Filt Rate - Afr Amer 61 mL/min (>60); Estimated Creatinine Clearance 55.11 ml/min; Glucose 176 mg/dL (74-106); Potassium 3.7 mmol/L (3.5-5.1); Sodium Level 144 mmol/L (136-145)
[2024-05-02] MEDS: Ferrous Sulfate 325 MG Tablet PO (08:30)
[2024-05-02] MEDS: Ensure Plus High Protein 120 ML LIQUID PO ×2 (08:30→17:02)
[2024-05-02] MEDS: Losartan Potassium 50 MG Tablet PO ×2 (08:31→22:41)
[2024-05-02] MEDS: Menthol/Lanolin/Calamine/Znox 113 GM Tube 1 APPLIC TOPICAL ×2 (08:31→22:38)
[2024-05-02] MEDS: predniSONE 10 MG Tablet 30 MG PO (08:31)
[2024-05-02] MEDS: Senna/Docusate Sodium 1 Tablet 2 TABLET PO ×2 (08:32→22:43)
[2024-05-02] MEDS: amLODIPine 5 MG Tablet PO (08:32)
[2024-05-02] MEDS: Nystatin Powder 15gm Bottle 1 APPLIC TOPICAL ×2 (08:32→22:38)
[2024-05-02] MEDS: Multivitamin (Healthy Eyes) Capsule 1 CAP PO ×2 (08:32→22:42)
[2024-05-02] MEDS: Cholecalciferol (Vit D3) 125 MCG CAPSULE (5,000 UNITS) PO (08:33)
[2024-05-02] MEDS: Metoprolol(XL)Succ 100 MG Tablet PO (08:33)
--- NOTE | 2024-05-02 10:00 | NURSING ---
Addendum entered by Jackie Palacio 05/02/24 15:32: Patient returned from [place] at this time. Addendum entered by Jackie Palacio 05/02/24 10:06: Nystatin sent with patient to administer while out on TOÑO at 1200. Patient instructed on medication. Patient acknowledges. Original Note: Patient exited unit at this time for TOÑO.
--- NOTE | 2024-05-02 10:57 | NURSING ---
Dr. Ortiz updated on request to have breathing treatments q6hr while awake instead of q6hr. N.O. received to change to while awake. Order read back.
[2024-05-02] MEDS: 0.9% Saline Lock 10 ML Syringe IV (18:13)
--- NOTE | 2024-05-02 18:20 | NURSING ---
Savage catheter removed. Patient tolerated well.
[2024-05-02] MEDS: Gabapentin 600 MG Tablet 1200 MG PO (22:37)
[2024-05-02] MEDS: traZODone 50 MG Tablet PO (22:41)
[2024-05-02] MEDS: Atorvastatin Calcium 40 MG Tablet PO (22:42)
[2024-05-02] MEDS: MELATONIN 3 MG TABLET PO (22:47)
[2024-05-02] MEDS: Acetaminophen 500 MG Tablet 1000 MG PO (22:47)
[2024-05-03] VITALS (10 sets, daily range): BP systolic 105–124; BP diastolic 60–68; PULSE 75–91; RESP 18–20; TEMP 36.6; O2SAT 91–96; BMI 37.4
[2024-05-03] MEDS: NYSTATIN 500,000 UNIT/5 ML UDC 500000 UNIT PO ×4 (05:15→20:44)
[2024-05-03] MEDS: Furosemide 80 MG Tablet PO ×2 (05:15→13:39)
[2024-05-03] MEDS: Pramipexole Di-HCl 0.5 MG Tablet PO ×3 (05:15→20:44)
[2024-05-03] MEDS: Levothyroxine 50 MCG Tablet PO (05:16)
[2024-05-03] MEDS: Ipratropium/Albuterol Sulfate 3 ML AMPUL.NEB INHALATION ×3 (07:32→19:45)
[2024-05-03] MEDS: Acetaminophen 500 MG Tablet 1000 MG PO ×2 (08:22→20:42)
[2024-05-03] MEDS: Ensure Plus High Protein 120 ML LIQUID PO ×3 (08:22→16:59)
[2024-05-03] MEDS: predniSONE 20 MG Tablet PO (08:31)
[2024-05-03] MEDS: Menthol/Lanolin/Calamine/Znox 113 GM Tube 1 APPLIC TOPICAL ×2 (08:31→20:43)
[2024-05-03] MEDS: Ferrous Sulfate 325 MG Tablet PO (08:31)
[2024-05-03] MEDS: Losartan Potassium 50 MG Tablet PO ×2 (08:32→20:44)
[2024-05-03] MEDS: amLODIPine 5 MG Tablet PO (08:33)
[2024-05-03] MEDS: Nystatin Powder 15gm Bottle 1 APPLIC TOPICAL ×2 (08:33→20:43)
[2024-05-03] MEDS: Multivitamin (Healthy Eyes) Capsule 1 CAP PO ×2 (08:33→20:44)
[2024-05-03] MEDS: Senna/Docusate Sodium 1 Tablet 2 TABLET PO ×2 (08:34→20:44)
[2024-05-03] MEDS: Metoprolol(XL)Succ 100 MG Tablet PO (08:34)
[2024-05-03] MEDS: Cholecalciferol (Vit D3) 125 MCG CAPSULE (5,000 UNITS) PO (08:35)
--- NOTE | 2024-05-03 09:21 | NURSING ---
Senior Audit Manager Note; MDS for 05/03/2024 Complete
--- NOTE | 2024-05-03 10:50 | CASEMGMT ---
Social Work SW received call from dtr, Tiana, who had several questions and comments pertaining to pt's care. SW spoke with dtr for a total of 35 mins. SW answered questions, provided updates from therapy per CR. Dtr noted she has noticed a change in pt's speech, describing it as 'drunk', lower, wraspier voice, and having difficulty understanding pt while speaking on the phone; pt having visual hallucinations recently. Dtr inquired about being able to take pt to his preschedule appt with Dr. Oliver, neurologist for his Parkinson's, on 05/12. SW explained there are no conflicts from an insurance standpoint, but referred to therapy and nursing on their perspective. Dtr will verify appt and notify nursing of appt and ask their opinion. Dtr would like Dr. Lucas to become new neurologist d/t location. SW also explained nursing can advise on that change in provider. SW to notify therapy if a car tx needs done in preparation for appt. Dtr appreciative. Dtr did confirm pt is worried about his , and was excited being able to see her over the weekend. Dtr confirmed pt and family uses humor as a coping mechanism to pain and suffering. SW explained pt expressed feelings more vulnerably with this worker upon admission and will continue to offer support and monitor mood throughout stay. Dtr appreciative. SW will continue to follow. Nydia León MSW ANALOG DEVICE DESIGNER
--- NOTE | 2024-05-03 11:24 | NURSING ---
Offered covid vaccine, VIS provided. Declines at this time, says he'll ask his dtr and let nursing staff know if he decides to receive vaccine.
[2024-05-03] MEDS: MELATONIN 3 MG TABLET PO (20:43)
[2024-05-03] MEDS: traZODone 50 MG Tablet PO (20:44)
[2024-05-03] MEDS: Gabapentin 600 MG Tablet 1200 MG PO (20:44)
[2024-05-03] MEDS: Atorvastatin Calcium 40 MG Tablet PO (20:44)
[2024-05-04] VITALS (8 sets, daily range): BP systolic 126–139; BP diastolic 56–68; PULSE 75–89; RESP 16–28; TEMP 36.5; O2SAT 94–96; BMI 37.5
[2024-05-04] MEDS: NYSTATIN 500,000 UNIT/5 ML UDC 500000 UNIT PO ×4 (05:45→22:16)
[2024-05-04] MEDS: Furosemide 80 MG Tablet PO ×2 (05:45→13:38)
[2024-05-04] MEDS: Levothyroxine 50 MCG Tablet PO (05:45)
[2024-05-04] MEDS: Pramipexole Di-HCl 0.5 MG Tablet PO ×3 (05:45→22:15)
[2024-05-04 06:24] LABS: Absolute Lymphocyte Count 0.65 X10^3/uL (0.83-4.51); Absolute Neutrophil Count 19.7 X10^3/uL (2.0-7.7); Basophil# 0.08 X10^3/uL; Basophil% 0.4 % (0-1); Eosinophil# 0.12 X10^3/uL; Eosinophils% 0.5 % (0-5); Hematocrit 36.5 % (40-54); Hemoglobin 11.3 g/dL (13.0-16.5); Lymphocyte # 0.65 X10^3/ul (0.83-4.51); Lymphocyte % 2.9 % (19-41); Mean Corpuscular Hgb 29.4 pg (27.0-32.0); Mean Corpuscular Volume 95.1 fL (80-94); Mean Platelet Vol. 10.8 fl (6.2-12.0); Monocyte# 1.33 X10^3/uL; Monocyte% 5.9 % (0-10); NRBC Flagged by Analyzer 0 % (0-5); Neutrophil # 19.65 X10^3/uL (2.7-7.7); Neutrophil % 86.7 % (47-70); Platelet Count 170 K/mm3 (150-450); RBC Distribution Width CV 15.1 % (11.6-14.6); RBC Distribution Width SD 53.1 fl (35.1-43.9); Red Blood Count 3.84 M/mm3 (4.6-6.2); White Blood Count 22.7 K/mm3 (4.4-11.0)
[2024-05-04 06:55] LABS: Anion Gap 1 (5-15); BUN 55 mg/dL (7-18); BUN/Creat Ratio 31.8 RATIO (10-20); Calcium,Total 9.5 mg/dL (8.5-10.1); Chloride 104 mmol/L (98-107); Creatinine, Serum 1.73 mg/dL (0.70-1.30); EST Glomerular Filtration Rate 41 mL/min (>60); Est Glom Filt Rate - Afr Amer 49 mL/min (>60); Estimated Creatinine Clearance 45.38 ml/min; Glucose 191 mg/dL (74-106); Sodium Level 142 mmol/L (136-145)
[2024-05-04] MEDS: Ipratropium/Albuterol Sulfate 3 ML AMPUL.NEB INHALATION ×3 (07:21→18:56)
[2024-05-04] MEDS: Cholecalciferol (Vit D3) 125 MCG CAPSULE (5,000 UNITS) PO (09:17)
[2024-05-04] MEDS: Losartan Potassium 50 MG Tablet PO ×2 (09:17→22:12)
[2024-05-04] MEDS: predniSONE 20 MG Tablet PO (09:17)
[2024-05-04] MEDS: Multivitamin (Healthy Eyes) Capsule 1 CAP PO ×2 (09:17→22:13)
[2024-05-04] MEDS: amLODIPine 5 MG Tablet PO (09:17)
[2024-05-04] MEDS: Nystatin Powder 15gm Bottle 1 APPLIC TOPICAL ×3 (09:17→22:16)
[2024-05-04] MEDS: Senna/Docusate Sodium 1 Tablet 2 TABLET PO ×2 (09:17→22:13)
[2024-05-04] MEDS: Ensure Plus High Protein 120 ML LIQUID PO ×3 (09:17→16:46)
[2024-05-04] MEDS: Ferrous Sulfate 325 MG Tablet PO (09:17)
[2024-05-04] MEDS: Metoprolol(XL)Succ 100 MG Tablet PO (09:18)
[2024-05-04] MEDS: Menthol/Lanolin/Calamine/Znox 113 GM Tube 1 APPLIC TOPICAL ×2 (09:18→22:11)
--- NOTE | 2024-05-04 09:49 | CASEMGMT ---
Social Work SW completed BIMS () and PHQ-2 () for MDS assessment. Nydia León CABLE SPOOLER AUDIO VIDEO MECHANIC
[2024-05-04] MEDS: Tuberculin,Purif.prot.deriv. 50 TU/ML Vial 0.1 ML ID (10:59)
[2024-05-04] MEDS: traZODone 50 MG Tablet PO (22:12)
[2024-05-04] MEDS: Atorvastatin Calcium 40 MG Tablet PO (22:13)
[2024-05-04] MEDS: Gabapentin 600 MG Tablet 1200 MG PO (22:15)
[2024-05-04] MEDS: BENZOCAINE/MENTHOL 1 LOZENGE MUCOUS MEM (22:31)
[2024-05-05] MEDS: Pramipexole Di-HCl 0.5 MG Tablet PO ×3 (05:23→20:48)
[2024-05-05] MEDS: Levothyroxine 50 MCG Tablet PO (05:24)
[2024-05-05] MEDS: NYSTATIN 500,000 UNIT/5 ML UDC 500000 UNIT PO ×4 (05:24→20:49)
[2024-05-05] MEDS: Furosemide 80 MG Tablet PO ×2 (05:24→14:53)
[2024-05-05] MEDS: Acetaminophen 500 MG Tablet 1000 MG PO ×2 (05:26→21:03)
[2024-05-05] MEDS: BENZOCAINE/MENTHOL 1 LOZENGE MUCOUS MEM ×2 (05:27→10:24)
[2024-05-05 06:00] VITALS: BMI 37.5
[2024-05-05] MEDS: Ipratropium/Albuterol Sulfate 3 ML AMPUL.NEB INHALATION ×2 (06:40→20:06)
[2024-05-05 06:41] VITALS: PULSE 81; RESP 20; O2SAT 95
[2024-05-05 08:17] VITALS: BP 110/49; PULSE 64
[2024-05-05] MEDS: Metoprolol(XL)Succ 100 MG Tablet PO (08:17)
[2024-05-05] MEDS: Losartan Potassium 50 MG Tablet PO ×2 (08:18→20:48)
[2024-05-05] MEDS: amLODIPine 5 MG Tablet PO (08:18)
[2024-05-05] MEDS: Ferrous Sulfate 325 MG Tablet PO (08:18)
[2024-05-05] MEDS: predniSONE 20 MG Tablet PO (08:18)
[2024-05-05] MEDS: Senna/Docusate Sodium 1 Tablet 2 TABLET PO ×2 (08:18→20:49)
[2024-05-05] MEDS: Cholecalciferol (Vit D3) 125 MCG CAPSULE (5,000 UNITS) PO (08:18)
[2024-05-05] MEDS: Menthol/Lanolin/Calamine/Znox 113 GM Tube 1 APPLIC TOPICAL ×2 (08:21→21:10)
[2024-05-05] MEDS: Ensure Plus High Protein 120 ML LIQUID PO ×3 (08:22→21:03)
[2024-05-05] MEDS: Multivitamin (Healthy Eyes) Capsule 1 CAP PO ×2 (10:22→20:47)
--- NOTE | 2024-05-05 14:15 | NURSING ---
dr Lucas's office returned call and was able to schedule pt for appt in may for referral for Parkinsons disease.
[2024-05-05 15:11] VITALS: BP 110/51; PULSE 75; RESP 20; TEMP 36.3; O2SAT 98
--- NOTE | 2024-05-05 15:15 | CASEMGMT ---
Social Work IDT met with patient, , dtr Carmen, niesha Page, and conference call with kim Montiel, for care plan meeting. Discussed patient's progress in PT/OT/SN. Educated to Medicare benefit. Provided family with written communication on insurance process and copay coverage during stay. SW acknowledged pt is excitedly anxious about discharging home, however, pt does need assistance with some tasks and is not able to assist. Though, and dtr Carmen replied differently. SW kindly explained that given 's diagnosis and current treatment, IDT is not recommending resume the caregiver position for pt. SW encouraged to care for herself, mentally and physically and enjoy the company of being the vs caregiver. SW provided resources for nonskilled INSPECTOR RECEIVING and MOW. IDT recommending additional support to assist pt at home. SW reiterated the referrals to the [facility] for INSPECTOR RECEIVING and [facility] Care Coordination program. Kim Montiel, stated she spoke with [facility] and the assessment will be scheduled in 7-10 days, but Murali BERNARD from [facility] did not receive the [facility] and records referral. SW agreed to refax information. Family collectively agreed they are not ready to set a DC date yet and for pt to continue with therapy. IDT agreeable. SW will continue to follow for DC planning and support. SW refaxed GEC and H&P to [facility]. SW received call from kim Montiel, requesting this worker email pt's advanced directives and inquired about future financial planning. SW educated to elder law ip technology transactions attorney's and offered resources. Dtr appreciative. Dtr also expressed great appreciation for this worker explained at the POC meeting that cannot care for pt, as dtr has been saying that to pt and , but both do not appear realistic. SW offered ongoing assistance. Sent secure email to dtr with requests. SUJIT Bernstein
[2024-05-05] MEDS: 0.9% Saline Lock 10 ML Syringe IV (16:09)
[2024-05-05 17:31] VITALS: O2SAT 98
[2024-05-05 20:06] VITALS: PULSE 83; RESP 22
[2024-05-05] MEDS: Nystatin Powder 15gm Bottle 1 APPLIC TOPICAL (20:46)
[2024-05-05] MEDS: traZODone 100 MG Tablet PO (20:47)
[2024-05-05] MEDS: Atorvastatin Calcium 40 MG Tablet PO (20:48)
[2024-05-05] MEDS: MELATONIN 3 MG TABLET PO (21:03)
[2024-05-05] MEDS: Gabapentin 600 MG Tablet 1500 MG PO (21:04)
[2024-05-06] MEDS: Furosemide 80 MG Tablet PO ×2 (05:43→13:41)
[2024-05-06] MEDS: NYSTATIN 500,000 UNIT/5 ML UDC 500000 UNIT PO ×4 (05:43→21:36)
[2024-05-06] MEDS: Pramipexole Di-HCl 0.5 MG Tablet PO ×3 (05:44→21:39)
[2024-05-06] MEDS: Levothyroxine 50 MCG Tablet PO (05:47)
[2024-05-06 06:00] VITALS: BMI 37.0
[2024-05-06 06:45] VITALS: PULSE 84; RESP 24; O2SAT 97
[2024-05-06] MEDS: Ipratropium/Albuterol Sulfate 3 ML AMPUL.NEB INHALATION ×3 (06:50→19:58)
[2024-05-06] MEDS: Ferrous Sulfate 325 MG Tablet PO (08:00)
[2024-05-06] MEDS: Losartan Potassium 50 MG Tablet PO ×2 (08:01→21:39)
[2024-05-06] MEDS: Cholecalciferol (Vit D3) 125 MCG CAPSULE (5,000 UNITS) PO (08:01)
[2024-05-06] MEDS: Multivitamin (Healthy Eyes) Capsule 1 CAP PO ×2 (08:01→21:39)
[2024-05-06] MEDS: Menthol/Lanolin/Calamine/Znox 113 GM Tube 1 APPLIC TOPICAL ×2 (08:01→21:41)
[2024-05-06] MEDS: Senna/Docusate Sodium 1 Tablet 2 TABLET PO ×2 (08:01→21:39)
[2024-05-06] MEDS: Nystatin Powder 15gm Bottle 1 APPLIC TOPICAL ×2 (08:01→21:40)
[2024-05-06] MEDS: amLODIPine 5 MG Tablet PO (08:01)
[2024-05-06 08:04] VITALS: PULSE 80
[2024-05-06] MEDS: Metoprolol(XL)Succ 100 MG Tablet PO (08:04)
[2024-05-06] MEDS: Ensure Plus High Protein 120 ML LIQUID PO ×2 (08:07→21:37)
[2024-05-06] MEDS: BENZOCAINE/MENTHOL 1 LOZENGE MUCOUS MEM (09:53)
[2024-05-06 10:49] VITALS: BP 103/58; PULSE 80; RESP 18; TEMP 36.2; O2SAT 99
[2024-05-06 14:00] VITALS: PULSE 81; RESP 24
[2024-05-06 16:55] VITALS: O2SAT 95
[2024-05-06 19:58] VITALS: PULSE 83; RESP 20
[2024-05-06] MEDS: Acetaminophen 500 MG Tablet 1000 MG PO (21:37)
[2024-05-06] MEDS: Gabapentin 600 MG Tablet 1500 MG PO (21:38)
[2024-05-06] MEDS: traZODone 100 MG Tablet PO (21:39)
[2024-05-06] MEDS: Atorvastatin Calcium 40 MG Tablet PO (21:39)
[2024-05-07] VITALS (7 sets, daily range): BP systolic 103–132; BP diastolic 54–65; PULSE 70–86; RESP 20; TEMP 36.3–36.8; O2SAT 94–96; BMI 36.8
--- NOTE | 2024-05-07 00:23 | NURSING ---
Patient continues with intermittent, moist productive cough. Unable to wear C-pap due to frequency of cough. Sputum culture was collected on 05/05/24, waiting for sensitivity results. Patient aware.
[2024-05-07] MEDS: MELATONIN 3 MG TABLET PO ×2 (01:14→20:54)
[2024-05-07] MEDS: BENZOCAINE/MENTHOL 1 LOZENGE MUCOUS MEM ×2 (01:14→21:41)
[2024-05-07] MEDS: Pramipexole Di-HCl 0.5 MG Tablet PO ×3 (06:44→20:53)
[2024-05-07] MEDS: Furosemide 80 MG Tablet PO (06:44)
[2024-05-07] MEDS: NYSTATIN 500,000 UNIT/5 ML UDC 500000 UNIT PO ×2 (06:44→12:30)
[2024-05-07] MEDS: Levothyroxine 50 MCG Tablet PO (06:44)
[2024-05-07] MEDS: Ipratropium/Albuterol Sulfate 3 ML AMPUL.NEB INHALATION ×2 (07:04→11:45)
[2024-05-07] MEDS: Ferrous Sulfate 325 MG Tablet PO (08:44)
[2024-05-07] MEDS: Menthol/Lanolin/Calamine/Znox 113 GM Tube 1 APPLIC TOPICAL ×2 (08:48→20:55)
[2024-05-07] MEDS: Cholecalciferol (Vit D3) 125 MCG CAPSULE (5,000 UNITS) PO (08:48)
[2024-05-07] MEDS: Multivitamin (Healthy Eyes) Capsule 1 CAP PO ×2 (08:48→20:53)
[2024-05-07] MEDS: Nystatin Powder 15gm Bottle 1 APPLIC TOPICAL ×2 (08:50→20:54)
[2024-05-07] MEDS: Metoprolol(XL)Succ 100 MG Tablet PO (10:52)
[2024-05-07] MEDS: amLODIPine 5 MG Tablet PO (10:53)
[2024-05-07] MEDS: Losartan Potassium 50 MG Tablet PO ×2 (10:53→20:53)
--- NOTE | 2024-05-07 11:13 | MDS.RN ---
Information for the MDS was obtained from review of the clinical record, interview of resident, staff, and direct observation of resident?s care.
--- NOTE | 2024-05-07 15:42 | RAD_ITS ---
EXAM: XR CHEST, 2 VIEWS CLINICAL INDICATION: SOB, cough, heart failure. TECHNIQUE: Frontal and lateral views of the chest. COMPARISON: 04/28/2024 FINDINGS: LUNGS AND PLEURAL SPACES: There are mild interstitial opacities present. No pneumothorax. No effusion. HEART: Unremarkable. Cardiac silhouette not enlarged. MEDIASTINUM: Central airways and mediastinal contour are unremarkable. BONES/JOINTS: Unremarkable. No acute fracture. SOFT TISSUES: Unremarkable. TUBES, LINES AND DEVICES: Right-sided Port-A-Cath in stable position. RAD/Chest PA and Lateral IMPRESSION: No significant change in appearance of the chest from the reference exam. Electronically Signed: Henry Fang MD at 16:53 EST ,
[2024-05-07] MEDS: levoFLOXacin IV 750 MG in Empty Viaflex Q48 100 MG IV (16:44)
[2024-05-07] MEDS: traZODone 100 MG Tablet PO (20:53)
[2024-05-07] MEDS: Atorvastatin Calcium 40 MG Tablet PO (20:53)
[2024-05-07] MEDS: Acetaminophen 500 MG Tablet 1000 MG PO (20:53)
[2024-05-07] MEDS: Gabapentin 600 MG Tablet 1500 MG PO (20:54)
[2024-05-08] VITALS (8 sets, daily range): BP systolic 98–106; BP diastolic 49–56; PULSE 72–80; RESP 18–22; TEMP 36.6; O2SAT 93–96; BMI 36.9
[2024-05-08] MEDS: BENZOCAINE/MENTHOL 1 LOZENGE MUCOUS MEM ×2 (06:20→13:52)
[2024-05-08] MEDS: Levothyroxine 50 MCG Tablet PO (06:21)
[2024-05-08] MEDS: Furosemide 40 MG Tablet PO ×2 (06:24→13:44)
[2024-05-08] MEDS: Pramipexole Di-HCl 0.5 MG Tablet PO ×3 (06:24→21:22)
[2024-05-08 06:34] LABS: Anion Gap 4 (5-15); BUN 68 mg/dL (7-18); BUN/Creat Ratio 31.3 RATIO (10-20); Calcium,Total 9.8 mg/dL (8.5-10.1); Chloride 101 mmol/L (98-107); Creatinine, Serum 2.17 mg/dL (0.70-1.30); EST Glomerular Filtration Rate 31 mL/min (>60); Est Glom Filt Rate - Afr Amer 38 mL/min (>60); Estimated Creatinine Clearance 35.92 ml/min; Glucose 147 mg/dL (74-106); Potassium 4.2 mmol/L (3.5-5.1); Sodium Level 140 mmol/L (136-145)
[2024-05-08] MEDS: Ferrous Sulfate 325 MG Tablet PO (08:38)
[2024-05-08] MEDS: Senna/Docusate Sodium 1 Tablet 2 TABLET PO (08:38)
[2024-05-08] MEDS: amLODIPine 5 MG Tablet PO (08:39)
[2024-05-08] MEDS: Losartan Potassium 50 MG Tablet PO ×2 (08:39→21:24)
[2024-05-08] MEDS: Menthol/Lanolin/Calamine/Znox 113 GM Tube 1 APPLIC TOPICAL ×2 (08:39→21:25)
[2024-05-08] MEDS: Nystatin Powder 15gm Bottle 1 APPLIC TOPICAL ×2 (08:41→21:22)
[2024-05-08] MEDS: Multivitamin (Healthy Eyes) Capsule 1 CAP PO ×2 (08:42→21:23)
[2024-05-08] MEDS: Metoprolol(XL)Succ 100 MG Tablet PO (08:45)
[2024-05-08] MEDS: Cholecalciferol (Vit D3) 125 MCG CAPSULE (5,000 UNITS) PO (10:37)
[2024-05-08] MEDS: Ipratropium/Albuterol Sulfate 3 ML AMPUL.NEB INHALATION ×2 (13:55→18:30)
[2024-05-08] MEDS: MELATONIN 3 MG TABLET PO (21:20)
[2024-05-08] MEDS: Gabapentin 600 MG Tablet 1500 MG PO (21:21)
[2024-05-08] MEDS: traZODone 100 MG Tablet PO (21:23)
[2024-05-08] MEDS: Atorvastatin Calcium 40 MG Tablet PO (21:23)
[2024-05-08] MEDS: Albuterol 2.5 MG/3 ML VIAL.NEB. INHALATION (21:40)
[2024-05-09] MEDS: Furosemide 40 MG Tablet PO ×2 (05:33→14:55)
[2024-05-09] MEDS: Pramipexole Di-HCl 0.5 MG Tablet PO ×3 (05:34→21:15)
[2024-05-09] MEDS: Levothyroxine 50 MCG Tablet PO (05:34)
[2024-05-09 05:45] VITALS: PULSE 82; RESP 18
[2024-05-09] MEDS: Albuterol 2.5 MG/3 ML VIAL.NEB. INHALATION (05:45)
[2024-05-09 06:00] VITALS: BMI 36.9
[2024-05-09] MEDS: Glycerin/Hypromellose/PEG400 15 ml Bottle 2 DRP EACH EYE (06:46)
[2024-05-09 08:45] VITALS: BP 89/50; PULSE 77; RESP 24; TEMP 36.4; O2SAT 97
[2024-05-09] MEDS: Senna/Docusate Sodium 1 Tablet 2 TABLET PO ×2 (08:51→21:21)
[2024-05-09] MEDS: Ferrous Sulfate 325 MG Tablet PO (08:52)
[2024-05-09 08:53] VITALS: BP 89/50; PULSE 77
[2024-05-09] MEDS: Nystatin Powder 15gm Bottle 1 APPLIC TOPICAL ×2 (08:53→21:33)
[2024-05-09] MEDS: Multivitamin (Healthy Eyes) Capsule 1 CAP PO ×2 (08:53→21:15)
[2024-05-09] MEDS: Cholecalciferol (Vit D3) 125 MCG CAPSULE (5,000 UNITS) PO (08:54)
[2024-05-09] MEDS: Ensure Plus High Protein 120 ML LIQUID PO (08:58)
[2024-05-09] MEDS: levoFLOXacin IV 750 MG in Empty Viaflex Q48 100 MG IV (10:27)
[2024-05-09] MEDS: Ipratropium/Albuterol Sulfate 3 ML AMPUL.NEB INHALATION ×2 (11:43→19:40)
[2024-05-09 11:54] VITALS: PULSE 81; RESP 17; O2SAT 97
[2024-05-09] MEDS: BENZOCAINE/MENTHOL 1 LOZENGE MUCOUS MEM (12:51)
[2024-05-09 14:58] VITALS: BP 117/52
[2024-05-09 19:40] VITALS: PULSE 99; RESP 18; O2SAT 98
[2024-05-09] MEDS: Gabapentin 600 MG Tablet 1500 MG PO (21:15)
[2024-05-09] MEDS: Atorvastatin Calcium 40 MG Tablet PO (21:15)
[2024-05-09] MEDS: Losartan Potassium 50 MG Tablet PO (21:21)
[2024-05-09] MEDS: guaiFENesin 10 ML UDC (200MG/10ML) 15 ML PO (21:21)
[2024-05-09] MEDS: traZODone 100 MG Tablet PO (21:29)
[2024-05-09] MEDS: Menthol/Lanolin/Calamine/Znox 113 GM Tube 1 APPLIC TOPICAL (21:32)
[2024-05-10] MEDS: BENZOCAINE/MENTHOL 1 LOZENGE MUCOUS MEM (04:57)
[2024-05-10] MEDS: Pramipexole Di-HCl 0.5 MG Tablet PO ×3 (05:41→22:39)
[2024-05-10] MEDS: Furosemide 40 MG Tablet PO (05:41)
[2024-05-10] MEDS: Levothyroxine 50 MCG Tablet PO (05:41)
[2024-05-10] MEDS: Ipratropium/Albuterol Sulfate 3 ML AMPUL.NEB INHALATION ×2 (06:27→19:00)
[2024-05-10 09:00] VITALS: BP 97/45; PULSE 77; TEMP 36.6
[2024-05-10] MEDS: Menthol/Lanolin/Calamine/Znox 113 GM Tube 1 APPLIC TOPICAL ×2 (09:09→22:41)
[2024-05-10] MEDS: Ferrous Sulfate 325 MG Tablet PO (09:09)
[2024-05-10] MEDS: Ensure Plus High Protein 120 ML LIQUID PO (09:10)
[2024-05-10] MEDS: Cholecalciferol (Vit D3) 125 MCG CAPSULE (5,000 UNITS) PO (09:11)
[2024-05-10] MEDS: Multivitamin (Healthy Eyes) Capsule 1 CAP PO ×2 (09:11→22:39)
[2024-05-10] MEDS: Senna/Docusate Sodium 1 Tablet 2 TABLET PO ×2 (09:11→22:39)
[2024-05-10] MEDS: Nystatin Powder 15gm Bottle 1 APPLIC TOPICAL ×2 (09:11→22:41)
[2024-05-10 10:20] VITALS: PULSE 96; RESP 20; O2SAT 94
[2024-05-10 11:00] VITALS: PULSE 78
[2024-05-10 12:14] VITALS: BP 107/45
--- NOTE | 2024-05-10 14:32 | NURSING ---
Pt Returned from appt with Shon Morris COTTAGE PARENT N.O. received to hold Amlodipine d/t low BP and to decrease Lasix to 60mg daily.
[2024-05-10] MEDS: 0.9% Saline Lock 10 ML Syringe IV (15:04)
[2024-05-10 19:00] VITALS: PULSE 86; RESP 28
[2024-05-10] MEDS: Budesonide Respules 0.5 MG/2 ML AMPUL.NEB. 1 MG INHALATION (19:00)
[2024-05-10 19:55] VITALS: PULSE 76; RESP 20
--- NOTE | 2024-05-10 22:12 | NURSING ---
contacted via telephone regarding BP 90/48 HR 102, reviewed MAR, per Dr. Ortiz D/janell Gillette, Landon/c blair, cbc/bmp in AM 05/11/24
[2024-05-10] MEDS: guaiFENesin 10 ML UDC (200MG/10ML) 15 ML PO (22:35)
[2024-05-10] MEDS: Atorvastatin Calcium 40 MG Tablet PO (22:39)
[2024-05-10] MEDS: Gabapentin 600 MG Tablet 1500 MG PO (22:39)
[2024-05-10] MEDS: traZODone 100 MG Tablet PO (22:39)
[2024-05-10] MEDS: MELATONIN 3 MG TABLET PO (22:46)
[2024-05-10] MEDS: Acetaminophen 500 MG Tablet 1000 MG PO (22:46)
--- NOTE | 2024-05-11 04:58 | NURSING ---
RT expresses concern of patient overall apparent decline and respiratory status. Compliant with CPAP with O2 bleed. Patient stable, in no current distress, patient is observed to fatigue easily and SOB with exertion, EAx1 SPT transfers, EAx1 with ADLS, reports always feeling tired Written communication left for Dr. Ortiz regarding above information.
[2024-05-11] MEDS: Levothyroxine 50 MCG Tablet PO (05:43)
[2024-05-11] MEDS: Pramipexole Di-HCl 0.5 MG Tablet PO ×3 (05:43→21:46)
[2024-05-11 06:00] VITALS: BMI 37.9
[2024-05-11 06:35] LABS: Absolute Lymphocyte Count 0.93 X10^3/uL (0.83-4.51); Absolute Neutrophil Count 8.6 X10^3/uL (2.0-7.7); Basophil# 0.04 X10^3/uL; Basophil% 0.4 % (0-1); Eosinophil# 0.19 X10^3/uL; Eosinophils% 1.7 % (0-5); Hemoglobin 9.4 g/dL (13.0-16.5); Lymphocyte # 0.93 X10^3/ul (0.83-4.51); Lymphocyte % 8.5 % (19-41); Mean Corp Hgb Conc 31.3 g/dL (32-36); Mean Corpuscular Hgb 29.3 pg (27.0-32.0); Mean Corpuscular Volume 93.5 fL (80-94); Mean Platelet Vol. 10.7 fl (6.2-12.0); Monocyte# 0.91 X10^3/uL; Monocyte% 8.3 % (0-10); NRBC Flagged by Analyzer 0 % (0-5); Neutrophil # 8.58 X10^3/uL (2.7-7.7); Neutrophil % 78.4 % (47-70); Platelet Count 123 K/mm3 (150-450); RBC Distribution Width CV 15.5 % (11.6-14.6); RBC Distribution Width SD 53.2 fl (35.1-43.9); Red Blood Count 3.21 M/mm3 (4.6-6.2)
[2024-05-11 06:46] LABS: Anion Gap 6 (5-15); BUN 73 mg/dL (7-18); BUN/Creat Ratio 26.7 RATIO (10-20); Calcium,Total 9.4 mg/dL (8.5-10.1); Chloride 99 mmol/L (98-107); Creatinine, Serum 2.73 mg/dL (0.70-1.30); EST Glomerular Filtration Rate 24 mL/min (>60); Est Glom Filt Rate - Afr Amer 29 mL/min (>60); Estimated Creatinine Clearance 28.59 ml/min; Glucose 116 mg/dL (74-106); Sodium Level 136 mmol/L (136-145)
[2024-05-11 06:58] VITALS: PULSE 65; RESP 22; O2SAT 91
[2024-05-11] MEDS: Ipratropium/Albuterol Sulfate 3 ML AMPUL.NEB INHALATION ×2 (06:58→12:49)
[2024-05-11] MEDS: Budesonide Respules 0.5 MG/2 ML AMPUL.NEB. 1 MG INHALATION (06:58)
--- NOTE | 2024-05-11 07:29 | US_ITS ---
STUDY: RENAL ULTRASOUND - COMPLETE REASON FOR EXAM: Male, 78 years old. Elevated BUN/creatinine TECHNIQUE: Ultrasound evaluation of the kidneys was performed with real-time and static dolan-scale imaging. COMPARISON: None. FINDINGS: Kidneys are echogenic, suggesting underlying medical renal disease RIGHT KIDNEY: Normal location of the right kidney, which is normal in size. The right kidney measures 10.1 x 5.3x 5.0 cm. There is a normal cortex of the right kidney. The renal cortex measures 1.5 cm. There is no right renal mass or cyst. There are no right renal calculi. There is no right hydronephrosis. DISTAL RIGHT URETER: There is non-visualization of the distal right ureter. There is no demonstrated right ureterovesical junction calculus. There is a visualized right ureteral jet. LEFT KIDNEY: Normal location of the left kidney, which is normal in size. The left kidney measures 11.7 x 5.7 x 6.3 cm. There is a normal cortex of the left kidney. The renal cortex measures 2.0 cm. There is no left renal mass or cyst. There are no left renal calculi. There is no left hydronephrosis. DISTAL LEFT URETER: There is non-visualization of the distal left ureter. There is no demonstrated left ureterovesical junction calculus. There is a visualized left ureteral jet. AORTA: There is no elongation or tortuosity of the abdominal aorta. BLADDER: The empty US/Kidney and Bladder IMPRESSION: Echogenic kidneys suggesting medical renal disease No obstructive uropathy, or suspicious renal lesion Electronically Signed: Curly Hoang MD at 10:12 EST ,
--- NOTE | 2024-05-11 08:25 | RAD_ITS ---
STUDY: X-RAY CHEST REASON FOR EXAM: Male, 78 years old. Worsening shortness of breath TECHNIQUE: PA and 2 lateral views of the chest. COMPARISON: 05/07/2024 FINDINGS: Stable appearance of a right subclavian port Lungs are expanded with persistent diffuse interstitial edema and small pleural effusions suggestive of CHF. Little significant change is noted since the previous study Sternal cerclage wires and vascular clips are present from a prior sternotomy and coronary artery bypass graft procedure (CABG). Normal mediastinum and yovanny. Normal visualized pulmonary arteries. Normal visualized aortic arch and descending thoracic aorta. There are diffuse degenerative changes of the visualized thoracic spine. There is degenerative osteoarthritis of the bilateral shoulders. There is no demonstrated abnormality of the visualized soft tissue structures of the upper abdomen. RAD/Chest PA and Lateral IMPRESSION: Persistent diffuse interstitial edema in the lower lung shah and bilateral pleural effusions suggesting CHF. Follow-up recommended to assure resolution Electronically Signed: Curly Hoang MD at 10:43 EST ,
[2024-05-11] MEDS: 0.9% Normal Saline (1000mL) 1,000 ML 75 ML IV (09:26)
[2024-05-11] MEDS: levoFLOXacin IV 750 MG in Empty Viaflex Q48 100 MG IV (09:26)
[2024-05-11] MEDS: 0.9% Saline Lock 10 ML Syringe IV ×2 (09:30→11:20)
[2024-05-11] MEDS: Menthol/Lanolin/Calamine/Znox 113 GM Tube 1 APPLIC TOPICAL ×2 (10:18→21:55)
[2024-05-11] MEDS: Ferrous Sulfate 325 MG Tablet PO (10:18)
[2024-05-11] MEDS: Senna/Docusate Sodium 1 Tablet 2 TABLET PO ×2 (10:19→21:46)
[2024-05-11] MEDS: Multivitamin (Healthy Eyes) Capsule 1 CAP PO ×2 (10:19→21:46)
[2024-05-11] MEDS: Cholecalciferol (Vit D3) 125 MCG CAPSULE (5,000 UNITS) PO (10:19)
[2024-05-11] MEDS: Nystatin Powder 15gm Bottle 1 APPLIC TOPICAL ×2 (10:19→21:46)
[2024-05-11] MEDS: Furosemide 40 MG/4 ML Vial IV (11:17)
--- NOTE | 2024-05-11 11:35 | NURSING ---
Updated Dr. Ortiz on chest xray results, verbal oder to DC IVF and give 40mg IV lasix x1.
--- NOTE | 2024-05-11 11:57 | PCM.CONS.R ---
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 Millan, coronary artery disease status post CABG, COPD on 3 to 4 L nasal cannula at all times, chronic heart failure preserved EF (EF 60%), severe pulmonary hypertension who is currently in TCU unit receiving rehab after recent hospitalization for acute on chronic hypoxic respiratory failure felt to be multifactorial from influenza A, COPD exacerbation and a component of fluid overload due to chronic heart failure and severe pulmonary hypertension. Nephrology consulted in view of rising serum creatinine. In reviewing past serum creatinine trends from 2021 baseline creatinine seems to be ranging around 1.4 to 1.6 mg/dL. On 04/22/2024 creatinine 1.46, creatinine peaked 1.75 on 04/29, creatinine improved back to 1.43 on 05/02. Creatinine has slowly risen since May 02, on 05/08 creatinine 2.17 and today creatinine is 2.73 mg/dL. Bicarb and potassium are normal. Chest x-ray from this morning showed persistent diffuse interstitial edema and bilateral pleural effusions, patient did receive IV Lasix 40 mg today. Reviewed medication record and patient had been receiving oral and/or IV furosemide since admission to TCU. Home diuretic regimen was Lasix 60 mg oral daily prior to this hospitalization. Renal ultrasound did not show any hydronephrosis, echogenic kidneys suggesting medical renal disease, no obstructive uropathy. Echo from 04/23/2024: Severe pulmonary hypertension, estimated EF 60%. Quite possibly DELVIS from cardiorenal syndrome physiology. Also to note reviewed blood pressures from the last couple days and patient has been more hypotensive which could be contributing to DELVIS. Amlodipine is now on hold, patient has been off losartan for some time now, and patient has not received metoprolol last 2 days due to decreased blood pressure. Will monitor clinical response to Lasix and follow labs. Labs ordered for am. Will obtain a UA. Patient is on fluid restriction. No acute indication for renal placement therapy at this time. Current weight is 117 kg, to note weight at admission was 127 kg. Patient has diminished breath sounds with scattered rales but no significant peripheral pitting edema. Patient reports he is making urine, he does not need Savage at this time. Further orders forthcoming as hospitalization evolves, thank you for allowing us to participate in the care of Mr. Durham. 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 Millan, coronary artery disease status post CABG, COPD on 3 to 4 L nasal cannula at all times, chronic heart failure preserved EF (EF 60%), severe pulmonary hypertension who was admitted to [facility] few weeks ago for COPD exacerbation, positive influenza A. Patient was then transferred to TCU unit for rehab. Nephrology consulted in view of rising serum creatinine. Patient reports he has not been seen by sales and marketing coordinator in past but does state that his PCP has been following his kidney numbers and has told him he is in CKD stage IIIa. Patient denies any recent nausea or vomiting. He does state that his appetite has been poor but has been trying to increase oral intake. Patient denies any issues with urinating such as hematuria or dysuria. Denies any worsening edema to his legs. Patient does report he had been feeling short of breath. He did receive IV Lasix via his Port-A-Cath this morning[facility] Medical History History of lung cancer Adrenal mass History of Parkinson's disease History of atrial fibrillation Hx of cancer of lung Pulmonary hypertension Emphysema, unspecified History of echocardiogram History of stress test Hypertension History of atrial fibrillation Hx of fracture of ankle COVID Chronic combined systolic and diastolic CHF (congestive heart failure) Severe pulmonary arterial systolic hypertension Wears glasses Uses wheelchair Walker as ambulation aid Ambulates with cane Arthritis Anemia Migraine headache Injury of head and neck Parkinson's disease Gastric reflux Former smoker BiPAP (biphasic positive airway pressure) dependence COPD (chronic obstructive pulmonary disease) On home oxygen therapy History of pain when walking History of edema Amputated great toe of left foot Amputation of one or more toes Chronic ulcer of left foot with fat layer exposed Hammer toe of left foot Toe osteomyelitis Right ventricular dilation, secondary Right ventricular systolic dysfunction Respiratory failure with hypoxia Diverticular disease Polyp of colon, adenomatous Chronic gastritis Multiple premature ventricular complexes Longstanding persistent atrial fibrillation Hyperlipidemia Acute kidney injury NSTEMI (non-ST elevated myocardial infarction) (12/02/19) Sepsis Gastric AVM Adenocarcinoma of lung, stage 1 GI bleed Iron deficiency anemia due to chronic blood loss Atherosclerosis of coronary artery of [place] heart without angina pectoris Cancer of upper lobe of left lung 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 Benign essential hypertension HEBER (obstructive sleep apnea) Dementia Parkinsons Essential tremor GERD (gastroesophageal reflux disease) Alcohol dependence Home Medications ?Medication ?Instructions ?Recorded ?Last Taken ?Type pramipexole 0.5 mg tablet 0.5 mg PO TID parkinsons 12/04/16 04/26/24 05:52 History docusate sodium 100 mg capsule 100 mg PO BID bowels 10/20/17 07/14/20 History ferrous sulfate 325 mg (65 mg 65 mg PO DAILY supplement 02/01/19 07/14/20 History iron) tablet cholecalciferol (vitamin D3) 125 5,000 unit PO DAILY cholesterol 03/30/19 07/14/20 History mcg (5,000 unit) capsule trazodone 50 mg tablet 50 mg PO QHS sleep 03/21/21 Unknown History rosuvastatin 20 mg tablet 20 mg PO DAILY cholesterol 03/05/22 04/26/24 09:15 History vitamins A,C,I-ixcm-xlkfzv 2,148 1 tab PO BID eye health 03/27/22 Unknown History mcg-113 mg-45 mg-17.4 mg tablet (PreserVision AREDS) metoprolol succinate 100 mg 100 mg PO DAILY bp,heart #90 tabs 08/18/23 04/26/24 09:10 Rx tablet,extended release 24 hr gabapentin 600 mg tablet 1,200 mg PO QHS nerve pain 09/23/23 Unknown History amlodipine 5 mg tablet 5 mg PO DAILY htn #90 tabs 12/11/23 04/26/24 09:15 Rx losartan 50 mg tablet 50 mg PO BID BP #180 TABLETS 03/19/24 04/26/24 09:15 Rx acetaminophen 325 mg tablet 650 mg (2 x 325 mg) PO Q6H PRN PRN 04/26/24 04/25/24 21:15 Rx Pain 1-10 Or Fever >100.7 #0 tabs albuterol sulfate 2.5 mg/3 mL 2.5 mg (3 mL) inhalation Q2H PRN 04/26/24 Unknown Rx (0.083 %) solution for nebulization PRN SOB &/OR WHEEZING #0 mL ipratropium 0.5 mg-albuterol 3 mg 3 ml inhalation 4X/DAY breathing 04/26/24 04/26/24 11:50 Rx (2.5 mg base)/3 mL nebulization #0 mL soln levothyroxine 50 mcg tablet 50 mcg PO DAILY@0600 Thyroid #0 04/26/24 04/26/24 05:55 Rx tabs melatonin 3 mg tablet 3 mg PO QHS PRN PRN Insomnia #0 04/26/24 04/25/24 21:15 Rx tabs peg [id number] 1 1 drp EACH EYE Q1H PRN DRY EYES #0 04/26/24 04/25/24 10:10 Rx %-0.2 %-0.2 % eye drops mL (Artificial Tears ([id number])) prednisone 20 mg tablet 20 mg PO BID Steroid #7 tabs 04/26/24 Unknown Rx sennosides 8.6 mg-docusate sodium 2 tab PO BID Constipation #0 tabs 04/26/24 04/26/24 09:15 Rx 50 mg tablet (Stimulant Laxative Plus) sodium chloride 0.65 % nasal spray 2 spray intranasal Q2H PRN dry 04/26/24 04/26/24 09:10 Rx aerosol (Nasal Moisturizing) nasal passages #50 mL furosemide 40 mg tablet (Lasix) 60 mg (1.5 x 40 mg) PO DAILY fluid 05/10/24 Unknown Rx #1 TAB Allergy/AdvReac Type Severity Reaction Status Date / Time No Known Allergies Allergy Verified 05/10/24 13:12 Family History Sister Alcoholism Cancer Mother Arthritis Father Arthritis Brother Cancer Surgical History History of transurethral resection of prostate Hx of toe surgery SURGICAL REMOVAL LEFT GREAT TOE History of right and left heart catheterization (12/04/16) History of colonoscopy (03/22/20) History of esophagogastroduodenoscopy (03/22/20) History of left heart catheterization (2016) History of coronary artery stent placement (12/23/06) Status post insertion of iliac artery stent (08/04/12) Status post surgical removal of neoplasm of skin History of tonsillectomy and adenoidectomy History of hammer toe correction History of open reduction and internal fixation (ORIF) procedure History of open reduction and internal fixation (ORIF) procedure History of lobectomy of lung History of cardioversion (12/2016) H/O coronary artery bypass surgery (02/14/06) Social History household members: spouse Smoking Status: Former smoker quit date: 11/14/93 how long ago did patient quit smokin years ago second hand exposure: No alcohol intake: current alcohol intake frequency: holidays/special occasions only Alcohol type: wine substance use type: does not use caffeine: Yes Type: coffee Number of servings: 1 what type of physical activity do you participate in: none frequency: does not exercise seatbelt use: always ROS ROS Narrative As in HPI Physical Exam Narrative Alert and orient x 3, no apparent distress. Sitting in recliner chair S1, S2, RRR Diminished breath sounds with faint scattered rales. Coarse nonproductive cough. On O2 @3.5 L via nasal cannula Abdomen soft, nontender, positive bowel sounds No pitting edema to legs Port-A-Cath dressing clean, dry and intact Lab / Micro Data 05/11/24 05:20 05/11/24 05:20 Labs: Laboratory Results - last 24 hr 05/11/24 05:20: WBC 11.0, RBC 3.21 L, Hgb 9.4 L, Hct 30.0 L, MCV 93.5, MCH 29.3, MCHC 31.3 L, RDW Std Deviation 53.2 H, RDW Coeff of Iram 15.5 H, Plt Count 123 L, MPV 10.7, Immature Gran % (Auto) 2.700 H, Neut % (Auto) 78.4 H, Lymph % (Auto) 8.5 L, [place] % (Auto) 8.3, Eos % (Auto) 1.7, Baso % (Auto) 0.4, Absolute Neuts (auto) 8.6 H, Absolute Lymphs (auto) 0.93, Nucleated RBC % 0, Sodium 136, Potassium 4.0, Chloride 99, Carbon Dioxide 32.0, Anion Gap 6, BUN 73 H, Creatinine 2.73 H, Estim Creat Clear Calc 28.59, Est GFR (MDRD) Af Amer 29 L, Est GFR (MDRD) Non-Af 24 L, BUN/Creatinine Ratio 26.7 H, Glucose 116 H, Calcium 9.4 Imaging Radiology Impression Renal Ultrasound 05/11/24 07:29 IMPRESSION: Echogenic kidneys suggesting medical renal disease No obstructive uropathy, or suspicious renal lesion Electronically Signed: Curly Hoang MD at 10:12 EST , Chest X-Ray 05/11/24 08:25 IMPRESSION: Persistent diffuse interstitial edema in the lower lung shah and bilateral pleural effusions suggesting CHF. Follow-up recommended to assure resolution Electronically Signed: Curly Hoagn MD at 10:43 EST ,
[2024-05-11 12:06] VITALS: O2SAT 95
[2024-05-11 12:49] VITALS: PULSE 72; RESP 22
[2024-05-11 13:30] VITALS: BP 112/47; PULSE 45; RESP 20; TEMP 36.3; O2SAT 99
[2024-05-11 14:25] LABS: Bacteria 0 SEEN /hpf (None Seen); Mucous, Urine 0 SEEN /hpf (<or=2+); Red Blood Cells-Urine 0 SEEN /hpf (0-5); Squamous Epithelial Cells - UA 0 SEEN /hpf (0-5)
[2024-05-11 14:39] LABS: Color, Urine Yellow (Yellow); Glucose, Dipstick Normal (Normal); Ketone-Dipstick Negative (Negative); Leukocyte Esterase-Dipstick 500 /ul (Negative); Nitrite-Dipstick Negative (Negative); Occult Blood-Urine Negative /ul (Negative); Protein-Dipstick Negative (Negative); Specific Gravity, Urine 1.015 (1.002-1.030); Urine Bilirubin Dipstick Negative (Negative); Urine Clarity Clear (Clear); Urine Urobilinogen Normal (Normal)
[2024-05-11 14:43] LABS: White Blood Cells 10-25 SEEN /hpf (0-5)
[2024-05-11 15:00] VITALS: BMI 37.9
--- NOTE | 2024-05-11 15:36 | CASEMGMT ---
Social Work SW received call from dtr, Tiana, requesting updates. Dtr noted she had recently spoken to pt's nurse to receive medical updates. Dtr inquired about DC plans. SW explained IDT discussed that d/t pt's recent medical decline, there is no DC date or timeframe known at this time. Pt needs continued medical care before therapy can make recommendations for DC. Dtr expressed understanding. SW offered IDT meets weekly and this worker can provide update. Dtr agreed and appreciative. SW will continue to follow. Nydia León CHARGE ACCOUNT CLERK MAGAZINE SUPERVISOR
[2024-05-11 20:40] VITALS: PULSE 90; RESP 18; O2SAT 96
[2024-05-11] MEDS: Albuterol 2.5 MG/3 ML VIAL.NEB. INHALATION (20:40)
[2024-05-11] MEDS: traZODone 100 MG Tablet PO (21:46)
[2024-05-11] MEDS: Atorvastatin Calcium 40 MG Tablet PO (21:46)
[2024-05-11] MEDS: guaiFENesin 10 ML UDC (200MG/10ML) 15 ML PO (21:54)
[2024-05-11] MEDS: Acetaminophen 500 MG Tablet 1000 MG PO (21:54)
[2024-05-11] MEDS: MELATONIN 3 MG TABLET PO (21:54)
[2024-05-11] MEDS: Gabapentin 600 MG Tablet 1500 MG PO (21:54)
[2024-05-11] MEDS: Ensure Plus High Protein 120 ML LIQUID PO (21:55)
[2024-05-12] VITALS (7 sets, daily range): BP systolic 130–146; BP diastolic 58–69; PULSE 80–103; RESP 18–20; TEMP 36.7; O2SAT 93–98; BMI 38.0
[2024-05-12] MEDS: Pramipexole Di-HCl 0.5 MG Tablet PO ×3 (04:38→20:47)
[2024-05-12] MEDS: Levothyroxine 50 MCG Tablet PO (04:39)
[2024-05-12 06:11] LABS: Absolute Lymphocyte Count 0.67 X10^3/uL (0.83-4.51); Absolute Neutrophil Count 7.7 X10^3/uL (2.0-7.7); Basophil# 0.04 X10^3/uL; Basophil% 0.4 % (0-1); Eosinophil# 0.21 X10^3/uL; Eosinophils% 2.2 % (0-5); Hematocrit 30.6 % (40-54); Hemoglobin 9.8 g/dL (13.0-16.5); Lymphocyte # 0.67 X10^3/ul (0.83-4.51); Lymphocyte % 6.9 % (19-41); Mean Corpuscular Hgb 29.7 pg (27.0-32.0); Mean Corpuscular Volume 92.7 fL (80-94); Mean Platelet Vol. 10.7 fl (6.2-12.0); Monocyte# 0.87 X10^3/uL; NRBC Flagged by Analyzer 0 % (0-5); Neutrophil # 7.65 X10^3/uL (2.7-7.7); Neutrophil % 79.1 % (47-70); Platelet Count 130 K/mm3 (150-450); RBC Distribution Width CV 15.2 % (11.6-14.6); RBC Distribution Width SD 51.5 fl (35.1-43.9); White Blood Count 9.7 K/mm3 (4.4-11.0)
[2024-05-12 06:45] LABS: Anion Gap 5 (5-15); BUN 69 mg/dL (7-18); BUN/Creat Ratio 32.4 RATIO (10-20); Calcium,Total 9.6 mg/dL (8.5-10.1); Chloride 100 mmol/L (98-107); Creatinine, Serum 2.13 mg/dL (0.70-1.30); EST Glomerular Filtration Rate 32 mL/min (>60); Est Glom Filt Rate - Afr Amer 39 mL/min (>60); Glucose 131 mg/dL (74-106); Potassium 4.2 mmol/L (3.5-5.1); Sodium Level 138 mmol/L (136-145)
[2024-05-12] MEDS: Budesonide Respules 0.5 MG/2 ML AMPUL.NEB. 1 MG INHALATION ×2 (07:06→19:25)
[2024-05-12] MEDS: Ipratropium/Albuterol Sulfate 3 ML AMPUL.NEB INHALATION ×3 (07:06→19:25)
[2024-05-12] MEDS: Multivitamin (Healthy Eyes) Capsule 1 CAP PO ×2 (09:44→20:47)
[2024-05-12] MEDS: Metoprolol(XL)Succ 25 MG Tablet PO (09:44)
[2024-05-12] MEDS: Ferrous Sulfate 325 MG Tablet PO (09:44)
[2024-05-12] MEDS: Senna/Docusate Sodium 1 Tablet 2 TABLET PO ×2 (09:44→20:48)
[2024-05-12] MEDS: Nystatin Powder 15gm Bottle 1 APPLIC TOPICAL ×2 (09:46→20:50)
[2024-05-12] MEDS: Cholecalciferol (Vit D3) 125 MCG CAPSULE (5,000 UNITS) PO (09:46)
[2024-05-12] MEDS: Menthol/Lanolin/Calamine/Znox 113 GM Tube 1 APPLIC TOPICAL ×2 (09:46→20:50)
[2024-05-12] MEDS: Ensure Plus High Protein 120 ML LIQUID PO (09:49)
[2024-05-12] MEDS: 0.9% Saline Lock 10 ML Syringe IV (13:54)
--- NOTE | 2024-05-12 15:37 | NURSING ---
Per charting pt has not had Bowel movement since 05/07/24. Per Pt had a bowel movement on 05/11/24 with therapy.
[2024-05-12] MEDS: Gabapentin 600 MG Tablet 1500 MG PO (20:47)
[2024-05-12] MEDS: Atorvastatin Calcium 40 MG Tablet PO (20:48)
[2024-05-12] MEDS: traZODone 100 MG Tablet PO (20:49)
[2024-05-12] MEDS: guaiFENesin 10 ML UDC (200MG/10ML) 15 ML PO (20:54)
[2024-05-13] MEDS: Pramipexole Di-HCl 0.5 MG Tablet PO ×3 (05:13→22:26)
[2024-05-13] MEDS: Levothyroxine 50 MCG Tablet PO (05:13)
[2024-05-13 06:00] VITALS: BMI 23.4
[2024-05-13 06:20] VITALS: PULSE 106; RESP 20
[2024-05-13 07:35] VITALS: PULSE 94; RESP 19; O2SAT 94
[2024-05-13] MEDS: Ipratropium/Albuterol Sulfate 3 ML AMPUL.NEB INHALATION ×2 (07:35→13:51)
[2024-05-13] MEDS: Budesonide Respules 0.5 MG/2 ML AMPUL.NEB. 1 MG INHALATION (07:35)
[2024-05-13] MEDS: Senna/Docusate Sodium 1 Tablet 2 TABLET PO ×2 (10:31→22:27)
[2024-05-13] MEDS: Multivitamin (Healthy Eyes) Capsule 1 CAP PO ×2 (10:31→22:26)
[2024-05-13] MEDS: Ferrous Sulfate 325 MG Tablet PO (10:31)
[2024-05-13 10:32] VITALS: BP 145/85; PULSE 85
[2024-05-13] MEDS: Cholecalciferol (Vit D3) 125 MCG CAPSULE (5,000 UNITS) PO (10:32)
[2024-05-13] MEDS: Metoprolol(XL)Succ 25 MG Tablet PO (10:32)
[2024-05-13] MEDS: Ensure Plus High Protein 120 ML LIQUID PO ×2 (10:34→22:22)
[2024-05-13] MEDS: Menthol/Lanolin/Calamine/Znox 113 GM Tube 1 APPLIC TOPICAL ×2 (10:35→22:23)
[2024-05-13] MEDS: Nystatin Powder 15gm Bottle 1 APPLIC TOPICAL ×2 (10:35→22:24)
[2024-05-13] MEDS: 0.9% Saline Lock 10 ML Syringe IV (10:54)
[2024-05-13] MEDS: levoFLOXacin IV 750 MG in Empty Viaflex Q48 100 MG IV (10:54)
[2024-05-13 13:41] VITALS: PULSE 94; RESP 22; O2SAT 94
[2024-05-13 16:00] VITALS: BP 112/55; PULSE 93; RESP 16; TEMP 36.4; O2SAT 95
--- NOTE | 2024-05-13 22:10 | CPS ---
Patient asleep, no vest treatment given by CRACKER DOUGH MIXER
[2024-05-13] MEDS: Gabapentin 600 MG Tablet 1500 MG PO (22:22)
[2024-05-13] MEDS: Acetaminophen 500 MG Tablet 1000 MG PO (22:22)
[2024-05-13] MEDS: traZODone 100 MG Tablet PO (22:26)
[2024-05-13] MEDS: Atorvastatin Calcium 40 MG Tablet PO (22:26)
[2024-05-13] MEDS: guaiFENesin 10 ML UDC (200MG/10ML) 15 ML PO (22:37)
--- NOTE | 2024-05-14 00:06 | NURSING ---
Addendum entered by Marquis Fajardo 05/14/24 06:50: Confidential voicemail left for SW regarding patient request. Original Note: Patient expresses desire for daughters and to be told the truth about my condition, they don't believe I am sick and all of them are in denial. Patient states goal is to return home with she thinks I'm strong and can beat anything and she thinks she can take care of me but she is having trouble taking care of herself right now. Patient states we have a meeting on friday and I would like them to be talked too. Patient notified that SW will be updated and will request SW to meet with patient to discuss with patient further. Patient pleasant and talkative. Expresses thanks for 1:1, no further requests at this time.
[2024-05-14] MEDS: Pramipexole Di-HCl 0.5 MG Tablet PO ×3 (06:51→22:21)
[2024-05-14] MEDS: Levothyroxine 50 MCG Tablet PO (06:51)
[2024-05-14] MEDS: 0.9% Saline Lock 10 ML Syringe IV (06:54)
[2024-05-14 07:00] VITALS: PULSE 88; RESP 18; O2SAT 90
[2024-05-14] MEDS: Ipratropium/Albuterol Sulfate 3 ML AMPUL.NEB INHALATION ×3 (07:00→19:51)
[2024-05-14] MEDS: Budesonide Respules 0.5 MG/2 ML AMPUL.NEB. 1 MG INHALATION ×2 (07:00→19:51)
[2024-05-14] MEDS: Ferrous Sulfate 325 MG Tablet PO (08:14)
[2024-05-14] MEDS: Glycerin/Hypromellose/PEG400 15 ml Bottle 2 DRP EACH EYE (09:09)
[2024-05-14 10:06] VITALS: PULSE 88
[2024-05-14] MEDS: Metoprolol(XL)Succ 25 MG Tablet PO (10:06)
[2024-05-14] MEDS: Multivitamin (Healthy Eyes) Capsule 1 CAP PO ×2 (10:07→22:20)
[2024-05-14] MEDS: Senna/Docusate Sodium 1 Tablet 2 TABLET PO ×2 (10:07→22:20)
[2024-05-14] MEDS: Cholecalciferol (Vit D3) 125 MCG CAPSULE (5,000 UNITS) PO (10:07)
[2024-05-14] MEDS: Nystatin Powder 15gm Bottle 1 APPLIC TOPICAL ×2 (10:08→22:21)
[2024-05-14] MEDS: Menthol/Lanolin/Calamine/Znox 113 GM Tube 1 APPLIC TOPICAL ×2 (10:08→22:25)
[2024-05-14] MEDS: Ensure Plus High Protein 120 ML LIQUID PO ×2 (10:10→22:21)
--- NOTE | 2024-05-14 10:14 | PCM.PN.REN ---
Subjective Subjective Following for DELVIS and CKD. The patient denies chest pain, nausea or vomiting. Lower extremity edema has improved subjectively. Objective Data Objective Data Vital Signs: Vital Signs Temp Pulse Resp BP Pulse Ox O2 Del Method O2 Flow Rate 97.5 F L 88 18 112/55 L 90 Nasal Cannula 5 05/13/24 16:00 05/14/24 10:06 05/14/24 07:00 05/13/24 16:00 05/14/24 07:00 05/14/24 07:00 05/14/24 07:00 FiO2 98 04/29/24 07:02 Oxygen Flow Rate (L/min) 5 Oxygen Delivery Method Nasal Cannula Weight: 74.026 kg Body Mass Index (BMI) 23.4 Intake & Output: Intake and Output for Last 24 Hours 05/12/24 05/13/24 05/14/24 23:59 23:59 23:59 Intake Total 600 / 920 1630 / 1630 360 / 360 Balance 600 / 920 1630 / 1630 360 / 360 Lab / Micro Data 05/12/24 05:09 05/12/24 05:09 Micro: Microbiology 05/13/24 09:46 Stool Stool Occult Blood (GENO) - Final Occult Blood Positive 05/05/24 17:52 Sputum, Expectorated/Coughed Gram Stain - Final 05/05/24 17:52 Sputum, Expectorated/Coughed Respiratory Culture - Final Pseudomonas aeruginosa 05/07/24 06:46 Nasal Secretion SARS-CoV-2 Antigen (Rapid) - Final 04/30/24 08:30 Nasal Secretion SARS-CoV-2 Antigen (Rapid) - Final Physical Exam Narrative Alert and orient x 3, no apparent distress. Sitting in recliner chair S1, S2, RRR Diminished breath sounds with diffuse rhonchi. 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 Millan, coronary artery disease status post CABG, COPD on 3 to 4 L nasal cannula at all times, chronic heart failure preserved EF (EF 60%), severe pulmonary hypertension who is currently in TCU unit receiving rehab after recent hospitalization for acute on chronic hypoxic respiratory failure felt to be multifactorial from influenza A, COPD exacerbation and a component of fluid overload due to chronic heart failure and severe pulmonary hypertension. Nephrology consulted for DELVIS on CKD. Acute kidney injury on chronic kidney disease stage G3b. In reviewing past serum creatinine trends from 2021 baseline creatinine seems to be ranging around 1.40 to 1.60 mg/dL. On 04/22/2024 creatinine 1.46, creatinine peaked 1.75 on 04/29, creatinine improved back to 1.43 on 05/02. Creatinine has slowly risen since 05/02/2024. On 05/08 creatinine increased to 2.17 and was 2.73 mg/dL on 05/11/2024. Renal ultrasound did not show any hydronephrosis, echogenic kidneys suggesting medical renal disease, no obstructive uropathy. Echo from 04/23/2024: Severe pulmonary hypertension, estimated EF 60%. DELVIS is most likely due to cardiorenal syndrome. Despite diuresis on 05/11/2024, renal function was stable on 05/12/2024 with serum creatinine of 2.13 mg/dL. He is currently not on scheduled diuretic. However, patient does not appear to be volume overloaded on my exam. Will not yet redosed furosemide. Continue to hold losartan and amlodipine for now. Keep MAP above 65 mmHg. No acute indication for renal placement therapy at this time. Continue to monitor renal function, volume status, acid-base and electrolytes. Recheck renal function panel again tomorrow on 05/15/2024.
[2024-05-14 12:50] VITALS: PULSE 90; RESP 18; O2SAT 95
[2024-05-14 13:25] VITALS: O2SAT 96
[2024-05-14 15:32] VITALS: BP 125/58; PULSE 70; RESP 18; TEMP 36.2; O2SAT 94
--- NOTE | 2024-05-14 16:32 | CASEMGMT ---
Social Work SW received VM from nursing with pt's request to speak with this worker on realistic DC planning, home with palliative or hospice. SW spoke with pt at bedside at length. Listened to pt's requests and concerns and conversed on plan of action. pt expressed family, specifically, is unrealistic with pt's medical conditions and prognosis, and that can care for pt at home. Pt expresses awareness to chronic medical conditions and Parkinson's disease, and unsure if he will recover. Pt explains he wants to go home, but doesn't want to go home too soon. Pt states his is unable to care for him and he does not want caring for him, d/t her own medical battles currently. Pt wants to ensure and children have the same understanding of pt's current medical condition, prognosis, and care needed at home, and is requesting this worker's assistance in that discussion. SW agreed and engaged in conversation ensuring pt's treatment goals and options for DC. SW educated to palliative vs hospice care. Pt's wishes align with palliative care in regards to wishes to manage chronic conditions, but continue with medical treatment, therapy and hospitalizations, if needed. SW educated to [employer], a program associated with [facility] and [facility] students to assist with oversight of chronic conditions. Educated to nonskilled HHC and discussed different times of the day to hire at home, i.e. AM and PM care and showers during the day. Discussed the goal is having additional medical care in the home to reduce risk of hospitalization and increase prompt care of managing chronic conditions. Pt in agreement to all services, and states money isn't an issue, even though my and kids are going to be concerned about cost. SW to provide family with list of resources for nonskilled [employer] with [facility] ranges of services. Educated to Medicare coverage for skilled HHC and palliative care, pending copays. SW offered to schedule another family meeting to hear updates from IDT on medical and therapy care, then this worker can discuss with all family in person this conversation and planning for DC. Pt in agreement and appreciative of time and initiation. SW to contact Tiana alvarez, the following business day to arrange. Pt appreciative. SW will continue to follow. SUJIT Bernstein
[2024-05-14 19:51] VITALS: PULSE 96; RESP 20; O2SAT 94
[2024-05-14] MEDS: Acetaminophen 500 MG Tablet 1000 MG PO (22:20)
[2024-05-14] MEDS: Gabapentin 600 MG Tablet 1500 MG PO (22:20)
[2024-05-14] MEDS: traZODone 100 MG Tablet PO (22:21)
[2024-05-14] MEDS: Atorvastatin Calcium 40 MG Tablet PO (22:21)
[2024-05-14] MEDS: guaiFENesin 10 ML UDC (200MG/10ML) 15 ML PO (22:22)
[2024-05-15] VITALS (7 sets, daily range): BP systolic 148; BP diastolic 69; PULSE 72–110; RESP 20–26; TEMP 36.4; O2SAT 92–96; BMI 37.5
[2024-05-15] MEDS: Albuterol 2.5 MG/3 ML VIAL.NEB. INHALATION (04:40)
[2024-05-15] MEDS: Levothyroxine 50 MCG Tablet PO (06:14)
[2024-05-15] MEDS: Pramipexole Di-HCl 0.5 MG Tablet PO ×3 (06:14→23:01)
[2024-05-15] MEDS: Ipratropium/Albuterol Sulfate 3 ML AMPUL.NEB INHALATION ×3 (06:35→19:03)
[2024-05-15] MEDS: Budesonide Respules 0.5 MG/2 ML AMPUL.NEB. 1 MG INHALATION ×2 (06:35→19:03)
[2024-05-15] MEDS: Multivitamin (Healthy Eyes) Capsule 1 CAP PO ×2 (07:53→23:02)
[2024-05-15] MEDS: Ferrous Sulfate 325 MG Tablet PO (07:53)
[2024-05-15] MEDS: Cholecalciferol (Vit D3) 125 MCG CAPSULE (5,000 UNITS) PO (07:53)
[2024-05-15] MEDS: Senna/Docusate Sodium 1 Tablet 2 TABLET PO ×2 (07:53→23:01)
[2024-05-15] MEDS: Menthol/Lanolin/Calamine/Znox 113 GM Tube 1 APPLIC TOPICAL ×2 (07:53→23:00)
[2024-05-15] MEDS: Nystatin Powder 15gm Bottle 1 APPLIC TOPICAL ×2 (07:54→23:03)
[2024-05-15] MEDS: Metoprolol(XL)Succ 25 MG Tablet PO (07:56)
[2024-05-15 08:49] LABS: Albumin, Serum 2.8 g/dL (3.2-5.0); BUN 30 mg/dL (7-18); BUN/Creat Ratio 20.4 RATIO (10-20); Calcium,Total 9.8 mg/dL (8.5-10.1); Chloride 106 mmol/L (98-107); Creatinine, Serum 1.47 mg/dL (0.70-1.30); EST Glomerular Filtration Rate 49 mL/min (>60); Est Glom Filt Rate - Afr Amer 60 mL/min (>60); Estimated Creatinine Clearance 42.76 ml/min; Glucose 111 mg/dL (74-106); Phosphorus 3.3 mg/dL (2.5-4.9); Potassium 4.3 mmol/L (3.5-5.1); Sodium Level 144 mmol/L (136-145)
[2024-05-15] MEDS: Acetaminophen 500 MG Tablet 1000 MG PO (10:56)
[2024-05-15] MEDS: levoFLOXacin IV 750 MG/150 ML BAG 100 MG IV (11:01)
[2024-05-15] MEDS: 0.9% Saline Lock 10 ML Syringe IV (11:02)
[2024-05-15] MEDS: Ensure Plus High Protein 120 ML LIQUID PO (22:59)
[2024-05-15] MEDS: Gabapentin 600 MG Tablet 1500 MG PO (22:59)
[2024-05-15] MEDS: Atorvastatin Calcium 40 MG Tablet PO (23:01)
[2024-05-15] MEDS: traZODone 100 MG Tablet PO (23:02)
[2024-05-15] MEDS: guaiFENesin 10 ML UDC (200MG/10ML) 15 ML PO (23:06)
[2024-05-16] VITALS (7 sets, daily range): BP systolic 125; BP diastolic 61; PULSE 81–110; RESP 18–24; O2SAT 94–97; BMI 38.3
[2024-05-16] MEDS: Albuterol 2.5 MG/3 ML VIAL.NEB. INHALATION (02:56)
[2024-05-16] MEDS: Budesonide Respules 0.5 MG/2 ML AMPUL.NEB. 1 MG INHALATION (06:52)
[2024-05-16] MEDS: Levothyroxine 50 MCG Tablet PO (06:52)
[2024-05-16] MEDS: Ipratropium/Albuterol Sulfate 3 ML AMPUL.NEB INHALATION ×2 (06:52→13:14)
[2024-05-16] MEDS: Pramipexole Di-HCl 0.5 MG Tablet PO ×3 (06:52→23:15)
[2024-05-16] MEDS: Menthol/Lanolin/Calamine/Znox 113 GM Tube 1 APPLIC TOPICAL ×2 (10:19→23:16)
[2024-05-16] MEDS: Multivitamin (Healthy Eyes) Capsule 1 CAP PO ×2 (10:21→23:15)
[2024-05-16] MEDS: Ferrous Sulfate 325 MG Tablet PO (10:21)
[2024-05-16] MEDS: Senna/Docusate Sodium 1 Tablet 2 TABLET PO ×2 (10:22→23:16)
[2024-05-16] MEDS: Cholecalciferol (Vit D3) 125 MCG CAPSULE (5,000 UNITS) PO (10:23)
[2024-05-16] MEDS: Metoprolol(XL)Succ 25 MG Tablet PO (10:23)
[2024-05-16] MEDS: Nystatin Powder 15gm Bottle 1 APPLIC TOPICAL ×2 (10:26→23:16)
[2024-05-16] MEDS: Acetaminophen 500 MG Tablet 1000 MG PO (10:27)
[2024-05-16] MEDS: BENZOCAINE/MENTHOL 1 LOZENGE MUCOUS MEM (10:30)
--- NOTE | 2024-05-16 14:33 | NURSING ---
PT AND FAMILY UPDATED ON STAFF MEMBER TESTING POSITIVE FOR COVID.
[2024-05-16] MEDS: guaiFENesin 10 ML UDC (200MG/10ML) 15 ML PO (23:13)
[2024-05-16] MEDS: Ensure Plus High Protein 120 ML LIQUID PO (23:13)
[2024-05-16] MEDS: Gabapentin 600 MG Tablet 1500 MG PO (23:13)
[2024-05-16] MEDS: 0.9% Saline Lock 10 ML Syringe IV (23:14)
[2024-05-16] MEDS: traZODone 100 MG Tablet PO (23:15)
[2024-05-16] MEDS: Atorvastatin Calcium 40 MG Tablet PO (23:16)
--- NOTE | 2024-05-16 23:18 | CPS ---
[2224] Pt. has persistent cough at this time and can't find comfort wearing his CPAP machine. Pt. current wearing 4L NC at this time with appropriate oxygen saturations. RN made aware.
[2024-05-17] VITALS (7 sets, daily range): BP systolic 134–139; BP diastolic 63–64; PULSE 74–102; RESP 17–18; TEMP 35.5; O2SAT 92–97; BMI 38.5
[2024-05-17] MEDS: Pramipexole Di-HCl 0.5 MG Tablet PO ×3 (06:29→23:55)
[2024-05-17] MEDS: Levothyroxine 50 MCG Tablet PO (06:29)
[2024-05-17] MEDS: Ipratropium/Albuterol Sulfate 3 ML AMPUL.NEB INHALATION ×3 (07:20→19:50)
[2024-05-17] MEDS: Budesonide Respules 0.5 MG/2 ML AMPUL.NEB. 1 MG INHALATION ×2 (07:20→19:50)
[2024-05-17 07:57] LABS: Absolute Lymphocyte Count 1.07 X10^3/uL (0.83-4.51); Absolute Neutrophil Count 7.8 X10^3/uL (2.0-7.7); Basophil# 0.03 X10^3/uL; Basophil% 0.3 % (0-1); Eosinophil# 0.27 X10^3/uL; Eosinophils% 2.6 % (0-5); Hemoglobin 9.8 g/dL (13.0-16.5); Lymphocyte # 1.07 X10^3/ul (0.83-4.51); Lymphocyte % 10.2 % (19-41); Mean Corp Hgb Conc 30.6 g/dL (32-36); Mean Corpuscular Hgb 29.7 pg (27.0-32.0); Mean Platelet Vol. 9.7 fl (6.2-12.0); Monocyte# 0.98 X10^3/uL; Monocyte% 9.3 % (0-10); NRBC Flagged by Analyzer 0 % (0-5); Neutrophil # 7.75 X10^3/uL (2.7-7.7); Neutrophil % 73.7 % (47-70); Platelet Count 158 K/mm3 (150-450); RBC Distribution Width CV 16.7 % (11.6-14.6); RBC Distribution Width SD 56.7 fl (35.1-43.9); White Blood Count 10.5 K/mm3 (4.4-11.0)
--- NOTE | 2024-05-17 09:20 | CASEMGMT ---
Social Work SW spoke with dtr, Tiana, to review briefly conversation had with pt. Requesting dtr coordinate time on 05/19 with sister and mother to schedule another POC meeting. Dtr agreed and will notify this worker of time. SW will continue to follow. SUJIT BernsteinW
[2024-05-17] MEDS: Multivitamin (Healthy Eyes) Capsule 1 CAP PO ×2 (10:22→23:54)
[2024-05-17] MEDS: Metoprolol(XL)Succ 25 MG Tablet PO (10:23)
[2024-05-17] MEDS: Senna/Docusate Sodium 1 Tablet 2 TABLET PO ×2 (10:23→23:55)
[2024-05-17] MEDS: Ensure Plus High Protein 120 ML LIQUID PO (10:23)
[2024-05-17] MEDS: Cholecalciferol (Vit D3) 125 MCG CAPSULE (5,000 UNITS) PO (10:23)
[2024-05-17] MEDS: Menthol/Lanolin/Calamine/Znox 113 GM Tube 1 APPLIC TOPICAL (10:24)
[2024-05-17] MEDS: Ferrous Sulfate 325 MG Tablet PO (10:24)
[2024-05-17] MEDS: Nystatin Powder 15gm Bottle 1 APPLIC TOPICAL (10:25)
[2024-05-17] MEDS: 0.9% Saline Lock 10 ML Syringe IV (13:26)
--- NOTE | 2024-05-17 17:11 | EX.PCM.CON.G ---
HPI Consult Data Date of Consult: 05/17/24 HPI Narrative Reason for Consultation: Anemia with Hemoccult positive stools HPI Narrative: JV DURHAM, is a 78-year-old gentleman former smoker with a complicated multiple chronic medical illnesses including severe oxygen dependent COPD, CAD, chronic atrial fibrillation, diabetes, hypertension, morbid obesity, DJD, chronic peripheral neuropathy and possible past history of excessive alcohol consumption.? In March 2017 a chest x-ray prompted a CAT scan of the chest and then a PET CT which showed an abnormal left upper lobe nodule measuring 2.3 cm in maximum diameter highly suspicious for malignancy. ? Due to limited lung reserve the patient went straight to surgery and on 05/16/2017 he underwent left VATS procedure with left upper lobe wedge resection that revealed an adenocarcinoma measuring 1.8 cm in maximum diameter.? Tumor was grade 3, unifocal, resection margin was 0.2 cm but there was visceral pleural invasion.? No lymphovascular invasion was present and no lymph nodes were dissected.? He was previously diagnosed with chronic/recurrent iron deficiency anemia due to chronic GI blood loss and episodic acute.? In September 2017, then an acute upper GI bleed EGD at [facility] showed bleeding AVMs.? Since then he had been on oral iron supplemented with IV to target ferritin over 100 and transferrin saturation over 20% due to concomitant multiple chronic diseases including stage III chronic renal failure.? Upper and lower GI endoscopies [address] Alcala showed a large tubular adenoma of the hepatic flexure that was biopsied.? Gastritis and diverticular disease also identified.? Being a high surgical risk was referred to [facility] for further management of the tubular adenoma, and in September 2020 underwent resection of polyps from the cecum, transverse colon and ascending colon all of which showed tubular adenomas with no dysplasia or malignancy. He has not had an upper or lower endoscopy since September 2020. COUNTS INCLUDE 234 BEDS AT THE [facility] Medical History History of lung cancer Adrenal mass History of Parkinson's disease History of atrial fibrillation Hx of cancer of lung Pulmonary hypertension Emphysema, unspecified History of echocardiogram History of stress test Hypertension History of atrial fibrillation Hx of fracture of ankle COVID Chronic combined systolic and diastolic CHF (congestive heart failure) Severe pulmonary arterial systolic hypertension Wears glasses Uses wheelchair Walker as ambulation aid Ambulates with cane Arthritis Anemia Migraine headache Injury of head and neck Parkinson's disease Gastric reflux Former smoker BiPAP (biphasic positive airway pressure) dependence COPD (chronic obstructive pulmonary disease) On home oxygen therapy History of pain when walking History of edema Amputated great toe of left foot Amputation of one or more toes Chronic ulcer of left foot with fat layer exposed Hammer toe of left foot Toe osteomyelitis Right ventricular dilation, secondary Right ventricular systolic dysfunction Respiratory failure with hypoxia Diverticular disease Polyp of colon, adenomatous Chronic gastritis Multiple premature ventricular complexes Longstanding persistent atrial fibrillation Hyperlipidemia Acute kidney injury NSTEMI (non-ST elevated myocardial infarction) (12/02/19) Sepsis Gastric AVM Adenocarcinoma of lung, stage 1 GI bleed Iron deficiency anemia due to chronic blood loss Atherosclerosis of coronary artery of [place] heart without angina pectoris Cancer of upper lobe of left lung 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 Benign essential hypertension HEBER (obstructive sleep apnea) Dementia Parkinsons Essential tremor GERD (gastroesophageal reflux disease) Alcohol dependence Home Medications ?Medication ?Instructions ?Recorded ?Last Taken ?Type pramipexole 0.5 mg tablet 0.5 mg PO TID parkinsons 12/04/16 04/26/24 05:52 History docusate sodium 100 mg capsule 100 mg PO BID bowels 10/20/17 07/14/20 History ferrous sulfate 325 mg (65 mg 65 mg PO DAILY supplement 02/01/19 07/14/20 History iron) tablet cholecalciferol (vitamin D3) 125 5,000 unit PO DAILY cholesterol 03/30/19 07/14/20 History mcg (5,000 unit) capsule trazodone 50 mg tablet 50 mg PO QHS sleep 03/21/21 Unknown History rosuvastatin 20 mg tablet 20 mg PO DAILY cholesterol 03/05/22 04/26/24 09:15 History vitamins A,C,P-kgxw-tjqevp 2,148 1 tab PO BID eye health 03/27/22 Unknown History mcg-113 mg-45 mg-17.4 mg tablet (PreserVision AREDS) metoprolol succinate 100 mg 100 mg PO DAILY bp,heart #90 tabs 08/18/23 04/26/24 09:10 Rx tablet,extended release 24 hr gabapentin 600 mg tablet 1,200 mg PO QHS nerve pain 09/23/23 Unknown History amlodipine 5 mg tablet 5 mg PO DAILY htn #90 tabs 12/11/23 04/26/24 09:15 Rx losartan 50 mg tablet 50 mg PO BID BP #180 TABLETS 03/19/24 04/26/24 09:15 Rx acetaminophen 325 mg tablet 650 mg (2 x 325 mg) PO Q6H PRN PRN 04/26/24 04/25/24 21:15 Rx Pain 1-10 Or Fever >100.7 #0 tabs albuterol sulfate 2.5 mg/3 mL 2.5 mg (3 mL) inhalation Q2H PRN 04/26/24 Unknown Rx (0.083 %) solution for nebulization PRN SOB &/OR WHEEZING #0 mL ipratropium 0.5 mg-albuterol 3 mg 3 ml inhalation 4X/DAY breathing 04/26/24 04/26/24 11:50 Rx (2.5 mg base)/3 mL nebulization #0 mL soln levothyroxine 50 mcg tablet 50 mcg PO DAILY@0600 Thyroid #0 04/26/24 04/26/24 05:55 Rx tabs melatonin 3 mg tablet 3 mg PO QHS PRN PRN Insomnia #0 04/26/24 04/25/24 21:15 Rx tabs peg [id number] 1 1 drp EACH EYE Q1H PRN DRY EYES #0 04/26/24 04/25/24 10:10 Rx %-0.2 %-0.2 % eye drops mL (Artificial Tears ([id number])) prednisone 20 mg tablet 20 mg PO BID Steroid #7 tabs 04/26/24 Unknown Rx sennosides 8.6 mg-docusate sodium 2 tab PO BID Constipation #0 tabs 04/26/24 04/26/24 09:15 Rx 50 mg tablet (Stimulant Laxative Plus) sodium chloride 0.65 % nasal spray 2 spray intranasal Q2H PRN dry 04/26/24 04/26/24 09:10 Rx aerosol (Nasal Moisturizing) nasal passages #50 mL furosemide 40 mg tablet (Lasix) 60 mg (1.5 x 40 mg) PO DAILY fluid 05/10/24 Unknown Rx #1 TAB Allergy/AdvReac Type Severity Reaction Status Date / Time No Known Allergies Allergy Verified 05/10/24 13:12 Family History Sister Alcoholism Cancer Mother Arthritis Father Arthritis Brother Cancer Surgical History History of transurethral resection of prostate Hx of toe surgery SURGICAL REMOVAL LEFT GREAT TOE History of right and left heart catheterization (12/04/16) History of colonoscopy (03/22/20) History of esophagogastroduodenoscopy (03/22/20) History of left heart catheterization (2016) History of coronary artery stent placement (12/23/06) Status post insertion of iliac artery stent (08/04/12) Status post surgical removal of neoplasm of skin History of tonsillectomy and adenoidectomy History of hammer toe correction History of open reduction and internal fixation (ORIF) procedure History of open reduction and internal fixation (ORIF) procedure History of lobectomy of lung History of cardioversion (12/2016) H/O coronary artery bypass surgery (02/14/06) Social History household members: spouse Smoking Status: Former smoker quit date: 11/14/93 how long ago did patient quit smokin years ago second hand exposure: No alcohol intake: current alcohol intake frequency: holidays/special occasions only Alcohol type: wine substance use type: does not use caffeine: Yes Type: coffee Number of servings: 1 what type of physical activity do you participate in: none frequency: does not exercise seatbelt use: always ROS ROS Narrative As in HPI Physical Exam Narrative Alert and orient x 3, no apparent distress. Sitting in recliner chair S1, S2, RRR Diminished breath sounds with diffuse rhonchi. Abdomen soft, nontender, positive bowel sounds No lower extreme edema Lab / Micro Data 05/17/24 07:42 05/15/24 07:41 Labs: Laboratory Results - last 24 hr 05/17/24 07:42: WBC 10.5, RBC 3.30 L, Hgb 9.8 L, Hct 32.0 L, MCV 97.0 H, MCH 29.7, MCHC 30.6 L, RDW Std Deviation 56.7 H, RDW Coeff of [place] 16.7 H, Plt Count 158, MPV 9.7, Immature Gran % (Auto) 3.900 H, Neut % (Auto) 73.7 H, Lymph % (Auto) 10.2 L, [place] % (Auto) 9.3, Eos % (Auto) 2.6, Baso % (Auto) 0.3, Absolute Neuts (auto) 7.8 H, Absolute Lymphs (auto) 1.07, Nucleated RBC % 0 Micro: Microbiology 05/17/24 06:30 Nasal Secretion SARS-CoV-2 Antigen (Rapid) - Final Assessment & Plan Assessment/Plan (1) CKD (chronic kidney disease), stage III: (2) DELVIS (acute kidney injury): (3) Chronic combined systolic and diastolic CHF (congestive heart failure): (4) Iron deficiency anemia: (5) Atrial fibrillation: PLAN: Plan 78-year-old male with past medical history significant for adenocarcinoma of the left upper lobe status post VATS resection and chemo in remission now on surveillance followed by Dr. Millan. He also has a coronary artery disease status post CABG, COPD on 3 to 4 L nasal cannula at all times, chronic heart failure preserved EF (EF 60%), severe pulmonary hypertension who is currently in TCU unit receiving rehab after recent hospitalization for acute on chronic hypoxic respiratory failure felt to be multifactorial from influenza A, COPD exacerbation and a component of fluid overload due to chronic heart failure and severe pulmonary hypertension. I was consulted due to worsening anemia in the setting of fecal occult positive stools. Acute blood loss anemia He has multiple risk factors for angiodysplastic lesions, gave, gastritis, peptic ulcer disease also history of polyps which increases risk of GI blood loss. He should undergo an upper and lower endoscopy and possible capsule endoscopy. He was explained alternatives, risk, benefits include not withstanding bleeding, infection, sepsis, perforation, need for emergent urgent . He will have an ASA of 3.. Charges/Coding Visit Charges Inpatient E&M: 61057 SNF Init L2
[2024-05-17] MEDS: Atorvastatin Calcium 40 MG Tablet PO (23:54)
[2024-05-17] MEDS: traZODone 100 MG Tablet PO (23:54)
[2024-05-17] MEDS: guaiFENesin 10 ML UDC (200MG/10ML) 15 ML PO (23:58)
[2024-05-17] MEDS: Gabapentin 600 MG Tablet 1500 MG PO (23:58)
[2024-05-18] VITALS (8 sets, daily range): BP systolic 114; BP diastolic 60; PULSE 76–85; RESP 16–22; TEMP 36.8; O2SAT 93–97; BMI 38.4
[2024-05-18] MEDS: Menthol/Lanolin/Calamine/Znox 113 GM Tube 1 APPLIC TOPICAL ×3 (00:03→22:08)
[2024-05-18] MEDS: Nystatin Powder 15gm Bottle 1 APPLIC TOPICAL ×3 (00:04→22:11)
[2024-05-18] MEDS: Pramipexole Di-HCl 0.5 MG Tablet PO ×3 (04:59→22:10)
[2024-05-18] MEDS: Levothyroxine 50 MCG Tablet PO (04:59)
[2024-05-18] MEDS: Furosemide 40 MG Tablet PO ×2 (05:01→14:37)
[2024-05-18 05:47] LABS: Absolute Lymphocyte Count 1.16 X10^3/uL (0.83-4.51); Basophil# 0.04 X10^3/uL; Basophil% 0.4 % (0-1); Eosinophil# 0.23 X10^3/uL; Eosinophils% 2.4 % (0-5); Hematocrit 31.6 % (40-54); Hemoglobin 9.8 g/dL (13.0-16.5); Lymphocyte # 1.16 X10^3/ul (0.83-4.51); Lymphocyte % 12.1 % (19-41); Mean Corpuscular Hgb 29.8 pg (27.0-32.0); Mean Platelet Vol. 9.9 fl (6.2-12.0); Monocyte# 0.88 X10^3/uL; Monocyte% 9.2 % (0-10); NRBC Flagged by Analyzer 0.2 % (0-5); Neutrophil # 6.95 X10^3/uL (2.7-7.7); Neutrophil % 72.4 % (47-70); Platelet Count 156 K/mm3 (150-450); RBC Distribution Width CV 17.2 % (11.6-14.6); RBC Distribution Width SD 57.1 fl (35.1-43.9); Red Blood Count 3.29 M/mm3 (4.6-6.2); White Blood Count 9.6 K/mm3 (4.4-11.0)
[2024-05-18 06:10] LABS: Anion Gap 2 (5-15); BUN 21 mg/dL (7-18); Calcium,Total 9.6 mg/dL (8.5-10.1); Chloride 101 mmol/L (98-107); EST Glomerular Filtration Rate 52 mL/min (>60); Est Glom Filt Rate - Afr Amer 63 mL/min (>60); Estimated Creatinine Clearance 56.93 ml/min; Glucose 105 mg/dL (74-106); Potassium 4.5 mmol/L (3.5-5.1); Sodium Level 137 mmol/L (136-145)
[2024-05-18] MEDS: Budesonide Respules 0.5 MG/2 ML AMPUL.NEB. 1 MG INHALATION ×2 (07:07→19:55)
[2024-05-18] MEDS: Ipratropium/Albuterol Sulfate 3 ML AMPUL.NEB INHALATION ×3 (07:07→19:55)
[2024-05-18] MEDS: Metoprolol(XL)Succ 25 MG Tablet PO (08:14)
[2024-05-18] MEDS: Cholecalciferol (Vit D3) 125 MCG CAPSULE (5,000 UNITS) PO (08:15)
[2024-05-18] MEDS: Ferrous Sulfate 325 MG Tablet PO (08:15)
[2024-05-18] MEDS: Multivitamin (Healthy Eyes) Capsule 1 CAP PO ×2 (08:16→22:09)
[2024-05-18] MEDS: Senna/Docusate Sodium 1 Tablet 2 TABLET PO ×2 (08:16→22:11)
--- NOTE | 2024-05-18 15:46 | CASEMGMT ---
Social Work SW spoke with pt to confirm details for tomorrow's meeting with family. Pt reiterated that he wants this worker to be honest and vogt because they think I'm living forever and I'm not. SW agreed to follow pt's wishes and be clear with pt's chronic diagnoses. Pt reiterated is going to say she can care for him, but pt does not want her to given her own medical complications. SW agreed. SW discussed programs available for pt: palliative care, CCN, [facility] aides, nonskilled HHC and skilled HHC. Pt inquired about frequency of all entities. SW educated to each, but explored pt's normal routine at home. Pt stated he wakes up about 4 am; wakes up about 8 am; both go to bed about 9 pm. SW suggested having an aide assist with pt's morning care 4a-8a, until is awake and can assist with basic needs. Possibly having the 10 hours of VA aides for 2hrs M-F during the day around lunchtime. Then aides for the evening routine from 7p-9p. Pt agrees but cautioned may be hard to convince. SW recognized and will assist with explanation of needs and this is the pt's wish. pt appreciative. Time spent: 20 minutes Nydia SEVILLAW
--- NOTE | 2024-05-18 16:20 | CHAPLAIN ---
Type of Pastoral Visit ___ Initial Visit _x__ Follow-up Visit ___ On-call Visit ___ General Patient Visit ___ Spiritual Assessment ___ Family Conference ___ Bereavement ___ Rapid Response ___ Code Blue ___ Other (describe below) Pastoral Care Referral From _x__ Patient ___ Family ___ Nurse ___ Physician ___ Lusterer ___ Printing Equipment Mechanic Apprentice ___ Other (describe below) Sacrament/Intervention _x__ Active listening ___ Anointing ___ Zoroastrianism ___ Bereavement ___ Communion _x__ Claudia exploration ___ _x__ Life review _x__ Prayer ___ Reconciliation ___ Sacrament of Sick _x__ Supportive presence ___ Wedding ___ Other (describe below) Pastoral Comments patient is more energetic in his conversation and engagement after an initial first meeting a couple of weeks ago; pt is talkative and expresses his thoughts about his progress and his future; pt speaks at length about the meeting happening tomorrow and how he just wants to be honest; pt is encouraged by his great support from and family, and his claudia is a growing part of that help too; pt uses humor and reflection as conversation continues; pt expresses thanks for the visit
--- NOTE | 2024-05-18 21:01 | NURSING ---
Friend in to see patient at time.
[2024-05-18] MEDS: Gabapentin 600 MG Tablet 1500 MG PO (22:08)
[2024-05-18] MEDS: traZODone 100 MG Tablet PO (22:09)
[2024-05-18] MEDS: Atorvastatin Calcium 40 MG Tablet PO (22:10)
[2024-05-18] MEDS: Sodium Chloride 0.65% 1 SPRAY SPRAY.BTL 2 SPRAY NASAL ×2 (22:12)
[2024-05-18] MEDS: Ensure Plus High Protein 120 ML LIQUID PO (22:16)
[2024-05-18] MEDS: Acetaminophen 500 MG Tablet 1000 MG PO (22:17)
[2024-05-18] MEDS: guaiFENesin 10 ML UDC (200MG/10ML) 15 ML PO (22:18)
[2024-05-18] MEDS: Albuterol 2.5 MG/3 ML VIAL.NEB. INHALATION (22:36)
[2024-05-19 06:00] VITALS: BMI 38.2
[2024-05-19 07:20] VITALS: PULSE 77; RESP 18; O2SAT 95
[2024-05-19] MEDS: Ipratropium/Albuterol Sulfate 3 ML AMPUL.NEB INHALATION ×3 (07:20→19:50)
[2024-05-19] MEDS: Budesonide Respules 0.5 MG/2 ML AMPUL.NEB. 1 MG INHALATION ×2 (07:30→19:50)
[2024-05-19 08:51] VITALS: BP 141/55; PULSE 81; RESP 18; TEMP 36.3; O2SAT 94
[2024-05-19 08:54] VITALS: PULSE 81
[2024-05-19] MEDS: Furosemide 40 MG Tablet PO ×2 (08:54→16:14)
[2024-05-19] MEDS: Metoprolol(XL)Succ 25 MG Tablet PO (08:54)
[2024-05-19] MEDS: Menthol/Lanolin/Calamine/Znox 113 GM Tube 1 APPLIC TOPICAL ×2 (09:05→22:10)
[2024-05-19] MEDS: Nystatin Powder 15gm Bottle 1 APPLIC TOPICAL ×2 (09:06→22:12)
[2024-05-19 11:51] VITALS: O2SAT 93
[2024-05-19 14:06] VITALS: PULSE 81; RESP 17
--- NOTE | 2024-05-19 15:51 | CASEMGMT ---
Social Work IDT met with patient, , and dtr Stella, then dtr Tiana via conference call for care plan meeting. Dietitian provided explanation and answered questions pertaining to pt's cardiac, card controlled diet, with 2000 fluid restriction, and how to maintain at home. Provided resources for home going. PT/OT discussed patients progress since pt medically stabilized over the last week. Explaining pt is SBA-CGA for all task; Den for LE; ambulating up to 160 ft CGA; completing 4 steps with 1 HR CGA; is set up for grooming and UE tasks, though only has standing tolerance for 2 mins to brush his teeth at the sink, for example, then pt needs to sit. Pt's O2 is maintaining at 4L at rest and 5-6L with exertion. Family asked questions to team prior to them exiting. SW remained to explain further recommendations and goals for home. Cautioned family that pt wanted this worker to be honest with explanations, encourage realistic expectations and big picture thinking. SW acknowledged pt has progressed well and 'on paper' levels of assist are good and there are no concerns with home with . However, SW provided detailed explanation of SBA-CGA vs mod I, and IDTs recommendation for additional assistance in the home. Acknowledged the future is unknown with pt's prognosis but pt does have chronic conditions and planning is to reflect the future care without expectations of improvement. SW explained in detail the services/programs available to assist with medical management - palliative care and CCN/Patient Link. W then discussed pt's routine at home with hiring of aides from 4a-8a, then can assist with basic needs throughout the day, possibly [facility] aides around lunchtime for showers,etc, and aide assistance 7p-9p for bedtime assistance. questioned her being able to wake up earlier and assist with pt's morning routine. SW questioned, why would you. Encouraged the use of aides, noting the unnecessary lack of sleep, stress and unknowns of 's medical condition, treatment and prognosis. did agree and does stay overnight at their dtr's house on treatment days, thus pt would be home alone for the entire time, which IDT is not recommending. acknowledged. SW discussed caregiver burnout, self care and maintaining family roles. Offered dtrs can take turns visiting and assisting, if wanted, but not consistently or on a routine basis. SW stressed the benefit this would provide to pt's and dtr's, in addition to pt. Family digested information and asked questions, though, did understand recommendations are in agreement to plan. Family inquired about timeframe for DC. SW educated that family will contact the nonskilled HHC agencies to coordinate schedule, along with the [facility], and once aides are coordinated, to notify this worker, and a DC date can be set. Once a DC date is set, SW will refer to palliative, CCN, and skilled HHC. SW did provide and dtr will resources on [place], medical alert, nonskilled HHC, CCN, Nutrition Services, home delivered meals, and a written simplified explanation of the differences between palliative, hospice, skilled and nonskilled HHC. SW provided ongoing support throughout visit and validated family's wish to help pt, but provided encouragement to allow assistance moving forward to improve all quality of life. Family expressed great appreciation for this worker's time and assistance. SW will continue to follow to finalize DC plans and provide ongoing support. Time spent: 90 minutes Nydia SEVILLAW
[2024-05-19] MEDS: Pramipexole Di-HCl 0.5 MG Tablet PO ×2 (16:14→22:08)
[2024-05-19 19:50] VITALS: PULSE 90; RESP 20; O2SAT 98
[2024-05-19] MEDS: Gabapentin 600 MG Tablet 1500 MG PO (22:05)
[2024-05-19] MEDS: Ensure Plus High Protein 120 ML LIQUID PO (22:06)
[2024-05-19] MEDS: guaiFENesin 10 ML UDC (200MG/10ML) 15 ML PO (22:06)
[2024-05-19] MEDS: traZODone 100 MG Tablet PO (22:08)
[2024-05-19] MEDS: Multivitamin (Healthy Eyes) Capsule 1 CAP PO (22:08)
[2024-05-19] MEDS: Senna/Docusate Sodium 1 Tablet 2 TABLET PO (22:09)
[2024-05-19] MEDS: Atorvastatin Calcium 40 MG Tablet PO (22:09)
[2024-05-19] MEDS: Sodium Chloride 0.65% 1 SPRAY SPRAY.BTL 2 SPRAY NASAL (22:11)
[2024-05-20] VITALS (7 sets, daily range): BP systolic 134; BP diastolic 66; PULSE 74–97; RESP 18–24; TEMP 36.6; O2SAT 84–97; BMI 38.5
--- NOTE | 2024-05-20 00:09 | CPS ---
Patient stated he did not feel up to having his Vest done at this time
[2024-05-20] MEDS: Furosemide 40 MG Tablet PO ×2 (05:41→18:23)
[2024-05-20] MEDS: Levothyroxine 50 MCG Tablet PO (05:41)
[2024-05-20] MEDS: Pramipexole Di-HCl 0.5 MG Tablet PO ×3 (05:41→22:08)
[2024-05-20] MEDS: Ipratropium/Albuterol Sulfate 3 ML AMPUL.NEB INHALATION ×3 (07:28→19:05)
[2024-05-20] MEDS: Budesonide Respules 0.5 MG/2 ML AMPUL.NEB. 1 MG INHALATION ×2 (07:29→19:05)
[2024-05-20] MEDS: Ferrous Sulfate 325 MG Tablet PO (09:33)
[2024-05-20] MEDS: Menthol/Lanolin/Calamine/Znox 113 GM Tube 1 APPLIC TOPICAL ×2 (09:33→22:09)
[2024-05-20] MEDS: Multivitamin (Healthy Eyes) Capsule 1 CAP PO ×2 (09:33→22:09)
[2024-05-20] MEDS: Ensure Plus High Protein 120 ML LIQUID PO ×2 (09:33→22:08)
[2024-05-20] MEDS: Nystatin Powder 15gm Bottle 1 APPLIC TOPICAL ×2 (09:34→22:10)
[2024-05-20] MEDS: Senna/Docusate Sodium 1 Tablet 2 TABLET PO ×2 (09:35→22:08)
[2024-05-20] MEDS: Cholecalciferol (Vit D3) 125 MCG CAPSULE (5,000 UNITS) PO (09:35)
[2024-05-20] MEDS: Metoprolol(XL)Succ 25 MG Tablet PO (09:35)
[2024-05-20] MEDS: Gabapentin 600 MG Tablet 1500 MG PO (22:08)
[2024-05-20] MEDS: Atorvastatin Calcium 40 MG Tablet PO (22:09)
[2024-05-20] MEDS: traZODone 100 MG Tablet PO (22:09)
[2024-05-20] MEDS: 0.9% Saline Lock 10 ML Syringe IV (22:13)
[2024-05-20] MEDS: guaiFENesin 10 ML UDC (200MG/10ML) 15 ML PO (22:13)
--- NOTE | 2024-05-20 22:33 | CPS ---
[2218] Pt.'s bleed-in increased to 8L at this time to ensure adequate oxygenation (>90%).
[2024-05-21 06:00] VITALS: BMI 23.7
[2024-05-21] MEDS: Furosemide 40 MG Tablet PO ×2 (06:06→15:57)
[2024-05-21] MEDS: Pramipexole Di-HCl 0.5 MG Tablet PO ×3 (06:06→22:32)
[2024-05-21] MEDS: Levothyroxine 50 MCG Tablet PO (06:06)
[2024-05-21 07:00] VITALS: PULSE 85; RESP 16; O2SAT 95
[2024-05-21] MEDS: Budesonide Respules 0.5 MG/2 ML AMPUL.NEB. 1 MG INHALATION ×2 (07:00→19:07)
[2024-05-21] MEDS: Ipratropium/Albuterol Sulfate 3 ML AMPUL.NEB INHALATION ×3 (07:00→19:07)
[2024-05-21] MEDS: Ferrous Sulfate 325 MG Tablet PO (08:13)
[2024-05-21] MEDS: Ensure Plus High Protein 120 ML LIQUID PO ×2 (08:13→22:31)
[2024-05-21] MEDS: Menthol/Lanolin/Calamine/Znox 113 GM Tube 1 APPLIC TOPICAL ×2 (08:13→22:35)
[2024-05-21 08:14] VITALS: PULSE 85
[2024-05-21] MEDS: Multivitamin (Healthy Eyes) Capsule 1 CAP PO ×2 (08:14→22:32)
[2024-05-21] MEDS: Senna/Docusate Sodium 1 Tablet 2 TABLET PO ×2 (08:14→22:34)
[2024-05-21] MEDS: Cholecalciferol (Vit D3) 125 MCG CAPSULE (5,000 UNITS) PO (08:14)
[2024-05-21] MEDS: Metoprolol(XL)Succ 25 MG Tablet PO (08:14)
[2024-05-21] MEDS: Nystatin Powder 15gm Bottle 1 APPLIC TOPICAL ×2 (08:16→22:34)
[2024-05-21] MEDS: Acetaminophen 500 MG Tablet 1000 MG PO ×2 (10:23→22:32)
[2024-05-21 12:20] VITALS: BP 142/55; PULSE 87; RESP 20; TEMP 36.2; O2SAT 94
[2024-05-21 13:40] VITALS: PULSE 92; RESP 16
[2024-05-21 14:29] VITALS: O2SAT 97
--- NOTE | 2024-05-21 15:42 | CASEMGMT ---
Addendum entered by Nydia León 05/21/24 16:17: Received phone call from [facility] confirming they can accommodate order on 05/31 and pt can DC. SW to send testing and order on 05/31. SW to place other referrals and keep pt/dtr updated. Original Note: Social Work SW received phone call from dtr, Tiana, to follow up on meeting and conversation. Dtr shared her understanding of the topics discussed at the meeting and what planning she has done thus far. Dtr has spoken to [facility] BERNARD and Murali may be able to increase the WET [employer]ER hours from 10 to 30 per week, to lessen the gap of financial liability of hiring WET MIXER. Dtr confirmed the family is on board with the plan of having morning and evening aides 7 days a week. Dtr is requesting to set DC for 05/31. Pt has increased O2 needs and SW will contact [facility], pt's provider, to ensure a Friday DC will suffice. Dtr understood. Once [facility] confirms, MARCO ANTONIO will place referrals to other entities with the DC date. SW offered to provide list of skilled HHC agencies, but dtr denied stating pt used [facility] prior and can use again. SW to coordinate. Dtr appreciative. Referral sent to [facility] with inquiry via [facility]. Will continue to follow. SUJIT Bernstein
[2024-05-21 19:07] VITALS: PULSE 88; RESP 26; O2SAT 94
[2024-05-21] MEDS: Gabapentin 600 MG Tablet 1500 MG PO (22:31)
[2024-05-21] MEDS: guaiFENesin 10 ML UDC (200MG/10ML) 15 ML PO (22:31)
[2024-05-21] MEDS: Atorvastatin Calcium 40 MG Tablet PO (22:32)
[2024-05-21] MEDS: traZODone 100 MG Tablet PO (22:34)
--- NOTE | 2024-05-21 22:45 | NURSING ---
Right Chest Port deaccessed per order. Patient tolerated well. DSD in place, can be removed in the morning.
[2024-05-22] MEDS: Pramipexole Di-HCl 0.5 MG Tablet PO ×3 (05:31→22:14)
[2024-05-22] MEDS: Levothyroxine 50 MCG Tablet PO (05:31)
[2024-05-22] MEDS: Furosemide 40 MG Tablet PO ×2 (05:31→13:16)
[2024-05-22 06:00] VITALS: BMI 38.2
[2024-05-22 08:00] VITALS: PULSE 85; RESP 20; O2SAT 96
[2024-05-22] MEDS: Ipratropium/Albuterol Sulfate 3 ML AMPUL.NEB INHALATION ×3 (08:00→20:10)
[2024-05-22] MEDS: Budesonide Respules 0.5 MG/2 ML AMPUL.NEB. 1 MG INHALATION ×2 (08:00→21:10)
[2024-05-22 10:43] VITALS: BP 144/55; PULSE 78
[2024-05-22] MEDS: Cholecalciferol (Vit D3) 125 MCG CAPSULE (5,000 UNITS) PO (10:43)
[2024-05-22] MEDS: Magnesium Citrate 300 ML PO (10:43)
[2024-05-22] MEDS: Metoprolol(XL)Succ 25 MG Tablet PO (10:43)
[2024-05-22] MEDS: Menthol/Lanolin/Calamine/Znox 113 GM Tube 1 APPLIC TOPICAL ×2 (10:44→22:20)
[2024-05-22] MEDS: Senna/Docusate Sodium 1 Tablet 2 TABLET PO ×2 (10:44→22:14)
[2024-05-22] MEDS: Ferrous Sulfate 325 MG Tablet PO (10:44)
[2024-05-22] MEDS: Multivitamin (Healthy Eyes) Capsule 1 CAP PO ×2 (10:44→22:15)
[2024-05-22] MEDS: Nystatin Powder 15gm Bottle 1 APPLIC TOPICAL ×2 (10:45→22:20)
[2024-05-22 13:14] VITALS: BP 120/62; PULSE 75; RESP 18; TEMP 36.2; O2SAT 94
[2024-05-22 14:13] VITALS: PULSE 90; RESP 18; O2SAT 94
[2024-05-22 20:10] VITALS: PULSE 73; RESP 18; O2SAT 90
[2024-05-22] MEDS: Gabapentin 600 MG Tablet 1500 MG PO (22:12)
[2024-05-22] MEDS: Ensure Plus High Protein 120 ML LIQUID PO (22:12)
[2024-05-22] MEDS: guaiFENesin 10 ML UDC (200MG/10ML) 15 ML PO (22:13)
[2024-05-22] MEDS: Atorvastatin Calcium 40 MG Tablet PO (22:14)
[2024-05-22] MEDS: traZODone 100 MG Tablet PO (22:15)
[2024-05-22] MEDS: Sodium Chloride 0.65% 1 SPRAY SPRAY.BTL 2 SPRAY NASAL (22:16)
[2024-05-23] MEDS: Pramipexole Di-HCl 0.5 MG Tablet PO ×3 (05:51→22:19)
[2024-05-23] MEDS: Furosemide 40 MG Tablet PO ×2 (05:51→14:16)
[2024-05-23] MEDS: Levothyroxine 50 MCG Tablet PO (05:51)
[2024-05-23 06:00] VITALS: BMI 38.1
[2024-05-23 07:15] VITALS: PULSE 86; RESP 16; O2SAT 92
[2024-05-23] MEDS: Budesonide Respules 0.5 MG/2 ML AMPUL.NEB. 1 MG INHALATION ×2 (07:15→20:00)
[2024-05-23] MEDS: Ipratropium/Albuterol Sulfate 3 ML AMPUL.NEB INHALATION ×3 (07:15→20:00)
[2024-05-23 09:12] VITALS: BP 133/57; PULSE 78
[2024-05-23] MEDS: Senna/Docusate Sodium 1 Tablet 2 TABLET PO ×2 (09:12→22:20)
[2024-05-23] MEDS: Cholecalciferol (Vit D3) 125 MCG CAPSULE (5,000 UNITS) PO (09:12)
[2024-05-23] MEDS: Metoprolol(XL)Succ 25 MG Tablet PO (09:12)
[2024-05-23] MEDS: Ferrous Sulfate 325 MG Tablet PO (09:13)
[2024-05-23] MEDS: Menthol/Lanolin/Calamine/Znox 113 GM Tube 1 APPLIC TOPICAL ×2 (09:13→22:20)
[2024-05-23] MEDS: Multivitamin (Healthy Eyes) Capsule 1 CAP PO ×2 (09:13→22:19)
[2024-05-23] MEDS: Ensure Plus High Protein 120 ML LIQUID PO ×2 (09:15→22:19)
[2024-05-23] MEDS: Nystatin Powder 15gm Bottle 1 APPLIC TOPICAL ×2 (09:15→22:21)
[2024-05-23 14:09] VITALS: BP 123/63; PULSE 76; RESP 20; TEMP 36.3; O2SAT 95
[2024-05-23 14:10] VITALS: PULSE 79; RESP 16; O2SAT 97
[2024-05-23 16:19] VITALS: BP 137/69; PULSE 87; RESP 18; TEMP 36.6; O2SAT 92
[2024-05-23 20:00] VITALS: PULSE 84; RESP 18; O2SAT 92
[2024-05-23] MEDS: Gabapentin 600 MG Tablet 1500 MG PO (22:12)
[2024-05-23] MEDS: Atorvastatin Calcium 40 MG Tablet PO (22:19)
[2024-05-23] MEDS: guaiFENesin 10 ML UDC (200MG/10ML) 15 ML PO (22:19)
[2024-05-23] MEDS: traZODone 100 MG Tablet PO (22:20)
[2024-05-24] VITALS (9 sets, daily range): BP systolic 124–159; BP diastolic 61–96; PULSE 72–86; RESP 16–18; TEMP 36.2; O2SAT 93–95; BMI 38.0
[2024-05-24] MEDS: Levothyroxine 50 MCG Tablet PO (05:16)
[2024-05-24] MEDS: Furosemide 40 MG Tablet PO ×2 (05:16→13:56)
[2024-05-24] MEDS: Pramipexole Di-HCl 0.5 MG Tablet PO ×3 (05:17→22:06)
[2024-05-24] MEDS: Ipratropium/Albuterol Sulfate 3 ML AMPUL.NEB INHALATION ×3 (07:00→19:30)
[2024-05-24] MEDS: Budesonide Respules 0.5 MG/2 ML AMPUL.NEB. 1 MG INHALATION ×2 (07:00→19:30)
--- NOTE | 2024-05-24 08:10 | PN.TCU_ITS ---
Subjective Subjective Resident seen, examined for regulatory visit. He is feeling much better, in good spirits, he has no new problems, concerns, issues, complaints. 05/19/2024 Friend EGD: Impressions : - Normal esophagus. - Acute gastritis. Biopsied. - Non-bleeding gastric ulcers with no stigmata of bleeding. Biopsied. - No gross lesions in the first portion of the duodenum. Recommendations : - Discharge patient to a halfway. - Resume previous diet. - Continue present medications. - Await pathology results. Objective Data Objective Data Vital Signs: Vital Signs Temp Pulse Resp BP Pulse Ox O2 Del Method O2 Flow Rate 97.8 F 72 18 159/96 H 92 Nasal Cannula 3 05/23/24 16:19 05/24/24 05:19 05/23/24 20:00 05/24/24 05:19 05/23/24 20:00 05/23/24 20:00 05/23/24 20:00 FiO2 98 04/29/24 07:02 Oxygen Flow Rate (L/min) 3 Oxygen Delivery Method Nasal Cannula Weight: 120.519 kg Body Mass Index (BMI) 38.1 Intake & Output: Intake and Output for Last 24 Hours 05/22/24 05/23/24 05/24/24 23:59 23:59 23:59 Intake Total 1080 / 1080 1190 / 1190 240 / 240 Balance 1080 / 1080 1190 / 1190 240 / 240 Lab / Micro Data 05/18/24 05:13 05/18/24 05:13 Micro: Microbiology 05/24/24 05:30 Nasal Secretion SARS-CoV-2 Antigen (Rapid) - Final 05/17/24 06:30 Nasal Secretion SARS-CoV-2 Antigen (Rapid) - Final 05/13/24 09:46 Stool Stool Occult Blood (GENO) - Final Occult Blood Positive 05/05/24 17:52 Sputum, Expectorated/Coughed Gram Stain - Final 05/05/24 17:52 Sputum, Expectorated/Coughed Respiratory Culture - Final Pseudomonas aeruginosa 05/07/24 06:46 Nasal Secretion SARS-CoV-2 Antigen (Rapid) - Final 04/30/24 08:30 Nasal Secretion SARS-CoV-2 Antigen (Rapid) - Final Physical Exam Const alert General Appearance: cooperative HEENT normocephalic Eyes PERRL and EOMs intact bilaterally Neck supple, no JVD and no carotid bruits Resp normal respiratory effort, normal air movement and clear to auscultation bilaterally Auscultation: wheezes Cardio regular rate and regular rhythm GI normal to inspection, nondistended, normoactive bowel sounds, non-tender and non-distended Extremity normal capillary refill General Extremity: Negative for edema Skin no rashes or lesions noted General Skin Exam: no breakdown Psych affect normal Appearance: appropriate Assessment & Plan Assessment/Plan (1) Debility: (2) Acute and chronic respiratory failure: (3) Influenza A: (4) COPD exacerbation: (5) Acute on chronic heart failure with preserved ejection fraction (HFpEF): (6) History of lung cancer: (7) Parkinsons: (8) Atrial fibrillation: (9) HEBER (obstructive sleep apnea): (10) Iron deficiency anemia: (11) Vitamin D deficiency: (12) Vitamin B12 deficiency: (13) Insomnia: (14) Hyperlipidemia: QUALIFIERS: Hyperlipidemia type: unspecified Qualified Code(s): E 78.5 - Hyperlipidemia, unspecified (15) Neuropathic pain: (16) Essential (primary) hypertension: PLAN: Plan 78 year old male with below past medical history hospitalized for acute on chronic respiratory failure 2/2 influenza A, copd exacerbation, acute on chronic HFpEF, admitted to TCU with debility, here for rehabilitation, strengthening, prior to discharge home with . * Debility - PT/OT. * Pain - Tylenol 1000mg q6 prn pain (1-10). * Bowel - senna/colace 2 tablets bid, Magnesium citrate 300mL po daily prn. * Adult immunization - Administer pneumonia vaccine, covid vaccine, flu vaccine as appropriate. * DVT prophylaxis - Hold, right lower abdomen hematoma from Lovenox. * COPD - Albuterol 2.5mg q2 prn, Duoneb 3ML q6HRT, Budesonide 1mg inhaled q12. * Hypertension - Metoprolol succinate 25mg daily, Losartan 100mg daily. * Hyperlipidemia - Atorvastatin 40mg qhs. * Iron deficiency anemia - Ferrous sulfate 325mg daily, * Chronic HFpEF - Metoprolol succinate 25mg daily, Losartan 100mg daily, Furosemide 40mg bidlx. * Neuropathic pain - Gabapentin 1500mg qhs. * Hypothyroidism - Levothyroxine 50mcg daily. * Insomnia - Trazodone 100mg qhs, Melatonin 3mg qhs prn, stable chronic fci use, GDR not recommended. * Macular degeneration - Healthy Eyes 1 capsule bid. * Dry Eyes - Artificial Tears 2gtt ou q1 prn. * Parkinson Disease - Mirapex 0.5mg tid. * Dry nose - [place] 2 sprays nasal q2h prn. * Nutrition - Ensur Plus 120mL bid. * Skin irritation - Calmoseptine topical bid. * Tinea Corporis - Nystatin powder topical bid. * Dry Eyes - Artificial tears 2gtt ou q1h prn.
[2024-05-24] MEDS: Menthol/Lanolin/Calamine/Znox 113 GM Tube 1 APPLIC TOPICAL ×2 (08:23→22:08)
[2024-05-24] MEDS: Multivitamin (Healthy Eyes) Capsule 1 CAP PO ×2 (08:24→22:07)
[2024-05-24] MEDS: Metoprolol(XL)Succ 25 MG Tablet PO (08:24)
[2024-05-24] MEDS: Ensure Plus High Protein 120 ML LIQUID PO ×2 (08:24→21:34)
[2024-05-24] MEDS: Ferrous Sulfate 325 MG Tablet PO (08:24)
[2024-05-24] MEDS: Senna/Docusate Sodium 1 Tablet 2 TABLET PO ×2 (08:24→22:07)
[2024-05-24] MEDS: Sodium Chloride 0.65% 1 SPRAY SPRAY.BTL 2 SPRAY NASAL (08:28)
[2024-05-24] MEDS: Nystatin Powder 15gm Bottle 1 APPLIC TOPICAL ×2 (08:35→22:07)
[2024-05-24 08:39] LABS: Absolute Lymphocyte Count 1.02 X10^3/uL (0.83-4.51); Absolute Neutrophil Count 6.3 X10^3/uL (2.0-7.7); Basophil# 0.03 X10^3/uL; Basophil% 0.4 % (0-1); Differential Indicated SCAN CRITERIA MET; Eosinophil# 0.17 X10^3/uL; Eosinophils% 2.1 % (0-5); Hematocrit 33.4 % (40-54); Hemoglobin 9.9 g/dL (13.0-16.5); Lymphocyte # 1.02 X10^3/ul (0.83-4.51); Lymphocyte % 12.4 % (19-41); Mean Corp Hgb Conc 29.6 g/dL (32-36); Mean Corpuscular Hgb 29.3 pg (27.0-32.0); Mean Corpuscular Volume 98.8 fL (80-94); Mean Platelet Vol. 9.6 fl (6.2-12.0); Monocyte# 0.66 X10^3/uL; NRBC Flagged by Analyzer 0 % (0-5); Neutrophil # 6.27 X10^3/uL (2.7-7.7); Neutrophil % 75.9 % (47-70); POSITIVE MORPHOLOGY YES; Platelet Count 164 K/mm3 (150-450); RBC Distribution Width CV 18.7 % (11.6-14.6); RBC Distribution Width SD 66.6 fl (35.1-43.9); Red Blood Count 3.38 M/mm3 (4.6-6.2); White Blood Count 8.3 K/mm3 (4.4-11.0)
[2024-05-24 09:01] LABS: Anion Gap 2 (5-15); BUN 22 mg/dL (7-18); BUN/Creat Ratio 14.5 RATIO (10-20); Calcium,Total 9.2 mg/dL (8.5-10.1); Chloride 101 mmol/L (98-107); Creatinine, Serum 1.52 mg/dL (0.70-1.30); EST Glomerular Filtration Rate 47 mL/min (>60); Est Glom Filt Rate - Afr Amer 57 mL/min (>60); Estimated Creatinine Clearance 52.12 ml/min; Glucose 120 mg/dL (74-106); Potassium 3.5 mmol/L (3.5-5.1); Sodium Level 144 mmol/L (136-145)
[2024-05-24 09:12] LABS: Anisocytosis 1+
[2024-05-24] MEDS: Losartan Potassium 100 MG Tablet PO (09:52)
--- NOTE | 2024-05-24 14:11 | CASEMGMT ---
Social Work SW followed up with pt to summarize DC plans. Pt confirmed home 05/31 with previously discussed services - nonskilled HHC, VA aides, Palliative, CCN, skilled HHC. Family to transport. SW to send updated testing and order to [facility] for large portable tank. Pt has no other questions or concerns and appreciative this workers time and assistance. SW phoned referral to [facility] for PT/OT/SN with notification of referral to CCN after services. Emailed referral to [facility] Emailed referral for CCN after skilled HHC Plan: DC home 05/31, [facility] PT/OT/SN, [facility] O2 Nydia León [employer]
--- NOTE | 2024-05-24 19:10 | PCM.DC.SUM ---
Providers Date of Admission: 04/26/24 Primary Care Physician: Dr. Fany Hobson, DO Consultations 05/11/24 07:29 Consult: Nephrology Routine Consulting Provider: Rocael Gamino Reason for Consult: DELVIS EMERGENT Consult: No MD Notified: Yes Date Notified: 05/11/24 Time Notified: 10:45 Method of Notification: Answering Service 05/17/24 07:27 Consult: Gastroenterology Routine Consulting Provider: [facility] Reason for Consult: Anemia, +hemoccult. EMERGENT Consult: No MD Notified: Yes Date Notified: 05/17/24 Time Notified: 12:30 Method of Notification: Text 05/24/24 14:08 Consult: Hospice / Palliative Care Routine Consulting Provider: [facility] Reason for Consult: PALLIATIVE - dx: CHF, COPD, CKD, Parkinson's EMERGENT Consult: No MD Notified: Yes Date Notified: 05/24/24 Time Notified: 14:08 Method of Notification: Text Reason For Visit: INCREASING SHORTNESS OF BREATH Diagnosis Discharge Diagnosis (1) Debility: Status: Acute Code(s): R53.81 - Other malaise (2) Acute and chronic respiratory failure: Status: Chronic Code(s): J96.20 - Acute and chronic respiratory failure, unspecified whether with hypoxia or hypercapnia (3) Influenza A: Status: Acute Code(s): J10.1 - Influenza due to other identified influenza virus with other respiratory manifestations (4) COPD exacerbation: Status: Resolved Code(s): J44.1 - Chronic obstructive pulmonary disease with (acute) exacerbation (5) Acute on chronic heart failure with preserved ejection fraction (HFpEF): Status: Acute Code(s): I50.33 - Acute on chronic diastolic (congestive) heart failure (6) History of lung cancer: Status: Acute Code(s): Z85.118 - Personal history of other malignant neoplasm of bronchus and lung (7) Parkinsons: Status: Acute Code(s): G20 - Parkinson's disease (8) Atrial fibrillation: Status: Acute Code(s): I48.91 - Unspecified atrial fibrillation (9) HEBER (obstructive sleep apnea): Status: Chronic Code(s): G47.33 - Obstructive sleep apnea (adult) (pediatric) (10) Iron deficiency anemia: Status: Acute Code(s): D50.9 - Iron deficiency anemia, unspecified (11) Vitamin D deficiency: Status: Acute Code(s): E55.9 - Vitamin D deficiency, unspecified (12) Vitamin B12 deficiency: Status: Acute Code(s): E53.8 - Deficiency of other specified B group vitamins (13) Insomnia: Status: Acute Code(s): G47.00 - Insomnia, unspecified (14) Hyperlipidemia: Status: Chronic Code(s): E78.5 - Hyperlipidemia, unspecified Qualifiers: Hyperlipidemia type: unspecified Qualified Code(s): E78.5 - Hyperlipidemia, unspecified (15) Neuropathic pain: Status: Acute Code(s): M79.2 - Neuralgia and neuritis, unspecified (16) Essential (primary) hypertension: Status: Acute Code(s): I10 - Essential (primary) hypertension Plan 78 year old male with below past medical history hospitalized for acute on chronic respiratory failure 2/2 influenza A, copd exacerbation, acute on chronic HFpEF, admitted to TCU with debility, here for rehabilitation, strengthening, prior to discharge home with . Debility - PT/OT. Pain - Tylenol 1000mg q6 prn pain (1-10). Bowel - senna/colace 2 tablets bid, Magnesium citrate 300mL po daily prn. Adult immunization - Administer pneumonia vaccine, covid vaccine, flu vaccine as appropriate. DVT prophylaxis - Hold, right lower abdomen hematoma from Lovenox. COPD - Albuterol 2.5mg q2 prn, Duoneb 3ML q6HRT, Budesonide 1mg inhaled q12. Hypertension - Metoprolol succinate 25mg daily, Losartan 100mg daily. Hyperlipidemia - Atorvastatin 40mg qhs. Iron deficiency anemia - Ferrous sulfate 325mg daily, Chronic HFpEF - Metoprolol succinate 25mg daily, Losartan 100mg daily, Furosemide 40mg bidlx. Neuropathic pain - Gabapentin 1500mg qhs. Hypothyroidism - Levothyroxine 50mcg daily. Insomnia - Trazodone 100mg qhs, Melatonin 3mg qhs prn, stable chronic correction use, GDR not recommended. Macular degeneration - Healthy Eyes 1 capsule bid. Dry Eyes - Artificial Tears 2gtt ou q1 prn. Parkinson Disease - Mirapex 0.5mg tid. Dry nose - [place] 2 sprays nasal q2h prn. Nutrition - Ensur Plus 120mL bid. Skin irritation - Calmoseptine topical bid. Tinea Corporis - Nystatin powder topical bid. Dry Eyes - Artificial tears 2gtt ou q1h prn. Medications at Discharge Home Medications pramipexole 0.5 mg tablet 0.5 mg PO TID parkinsons 12/04/16 ferrous sulfate 325 mg (65 mg iron) tablet 65 mg PO DAILY supplement 02/01/19 cholecalciferol (vitamin D3) 125 mcg (5,000 unit) capsule 5,000 unit PO DAILY cholesterol 03/30/19 rosuvastatin 20 mg tablet 20 mg PO DAILY cholesterol 03/05/22 vitamins A,C,X-qlei-lzmefe 2,148 mcg-113 mg-45 mg-17.4 mg tablet (PreserVision AREDS) 1 tab PO BID eye health 03/27/22 levothyroxine 50 mcg tablet 50 mcg PO DAILY@0600 Thyroid #0 tabs 04/26/24 melatonin 3 mg tablet 3 mg PO QHS PRN PRN Insomnia #0 tabs 04/26/24 peg [id number] 1 %-0.2 %-0.2 % eye drops (Artificial Tears ([id number])) 1 drp EACH EYE Q1H PRN DRY EYES #0 mL 04/26/24 sodium chloride 0.65 % nasal spray aerosol (Nasal Moisturizing) 2 spray intranasal Q2H PRN dry nasal passages #50 mL 04/26/24 acetaminophen 500 mg tablet 1,000 mg (2 x 500 mg) PO Q6H PRN PRN Pain Score 1-10 #0 tabs 05/24/24 furosemide 40 mg tablet 40 mg PO BIDLX 30 days #60 tabs 05/24/24 gabapentin 600 mg tablet 1,500 mg (2.5 x 600 mg) PO QHS 30 days #75 tabs 05/24/24 losartan 100 mg tablet 100 mg PO DAILY 30 days #30 tabs 05/24/24 metoprolol succinate 25 mg tablet,extended release 24 hr 25 mg PO DAILY 30 days #30 tabs 05/24/24 sennosides 8.6 mg-docusate sodium 50 mg tablet (Stimulant Laxative Plus) 2 tab PO BID 30 days #120 tabs 05/24/24 trazodone 100 mg tablet 100 mg PO QHS 30 days #30 tabs 05/24/24 Hospital Course Operations None Procedures EKG Summary of Care Provided Minutes Spent on Discharge: 35 Hospital Course: 78 year old male with below past medical history hospitalized for acute on chronic respiratory failure 2/2 influenza A, copd exacerbation, acute on chronic HFpEF, admitted to TCU with debility, here for rehabilitation, strengthening, prior to discharge home with . 05/19/2024 Dr. Bennett EGD: Impressions : - Normal esophagus. - Acute gastritis. Biopsied. - Non-bleeding gastric ulcers with no stigmata of bleeding. Biopsied. - No gross lesions in the first portion of the duodenum. Recommendations : - Discharge patient to a group home. - Resume previous diet. - Continue present medications. - Await pathology results. Discharge home 05/31/2024, [facility] PT/OT/SN, [facility]. Physical Exam Const alert General Appearance: cooperative HEENT normocephalic Eyes PERRL and EOMs intact bilaterally Neck supple, no JVD and no carotid bruits Resp normal respiratory effort, normal air movement and clear to auscultation bilaterally Auscultation: wheezes Cardio regular rate and regular rhythm GI normal to inspection, nondistended, normoactive bowel sounds, non-tender and non-distended Extremity normal capillary refill General Extremity: Negative for edema Skin no rashes or lesions noted General Skin Exam: no breakdown Psych affect normal Appearance: appropriate Weight / BMI Weight Weight: 120.111 kg Body Mass Index (BMI) 38.0 ABG / Lab / Microbiology Data 05/24/24 08:26 05/24/24 08:26 Laboratory: Laboratory Results - last 24 hr 05/24/24 08:26: WBC 8.3, RBC 3.38 L, Hgb 9.9 L, Hct 33.4 L, MCV 98.8 H, MCH 29.3, MCHC 29.6 L, RDW Std Deviation 66.6 H, RDW Coeff of Iram 18.7 H, Plt Count 164, MPV 9.6, Immature Gran % (Auto) 1.200 H, Neut % (Auto) 75.9 H, Lymph % (Auto) 12.4 L, Pine % (Auto) 8.0, Eos % (Auto) 2.1, Baso % (Auto) 0.4, Absolute Neuts (auto) 6.3, Absolute Lymphs (auto) 1.02, Nucleated RBC % 0, Anisocytosis 1+, Sodium 144, Potassium 3.5, Chloride 101, Carbon Dioxide 41.0 H, Anion Gap 2 L, BUN 22 H, Creatinine 1.52 H, Estim Creat Clear Calc 52.12, Est GFR (MDRD) Af Amer 57 L, Est GFR (MDRD) Non-Af 47 L, BUN/Creatinine Ratio 14.5, Glucose 120 H, Calcium 9.2 Microbiology: Microbiology 05/24/24 05:30 Nasal Secretion SARS-CoV-2 Antigen (Rapid) - Final 05/17/24 06:30 Nasal Secretion SARS-CoV-2 Antigen (Rapid) - Final 05/13/24 09:46 Stool Stool Occult Blood (GENO) - Final Occult Blood Positive 05/05/24 17:52 Sputum, Expectorated/Coughed Gram Stain - Final 05/05/24 17:52 Sputum, Expectorated/Coughed Respiratory Culture - Final Pseudomonas aeruginosa 05/07/24 06:46 Nasal Secretion SARS-CoV-2 Antigen (Rapid) - Final 04/30/24 08:30 Nasal Secretion SARS-CoV-2 Antigen (Rapid) - Final D/C Instructions Discharge Diet: No restrictions Discharge Activity: Return to Normal Activity, May Shower and Use Walker Weight Bearing Status: Weight bearing as tolerated Call your doctor if you observe: Fever of 101 or Higher, Inability to urinate, Inability to have a bowel movement, Shortness of breath, Dizziness, Fainting spells, Swelling in the ankles, Chest pain and Uncontrolled pain Additional Dressing/Incision Instructions: Discharge home 05/31/2024, [facility] PT/OT/SN, [facility]. DC O2, CPAP, BIPAP Needs PSN CPAP & BiPAP: BiPAP & CPAP Settings per PSN Fraction of Inspired Oxygen ( 98 04/29/24 07:02 FIO2) Home Oxygen Instructions: Home O2 discharge Instructions Type of respiratory needs? Oxygen,CPAP 05/24/24 19:14 DC Oxygen Instruction Oxygen frequency Continuous 05/24/24 19:14 Additional Home O2 Discharge instructions: Yes Type of respiratory needs?: Oxygen (3 Liters) Oxygen frequency: Continuous Continuous oxygen liters per minute: 3 and CPAP CPAP instructions: Sleeping, napping. DC home with Oxygen: Yes Home O2 MD Review: I have reviewed the oxygen testing, and the patient qualifies for home oxygen equipment and portability. The patient is mobile in the home and the community. Please Follow Up With: Paxton Del Valle Meaningful Use Info Meaningful Use Meaningful Use Diagnoses (Choose all that apply): None applicable Ischemic Stroke Statin Dosing Therapy Reference: STATIN DOSE THERAPY REFERENCE: * Patients > 75 years receive moderate or high dose statin therapy. * Patients 75 years or YOUNGER should receive HIGH intensity statin dose unless contraindicated. You will be required to document reason for non-treatment if statin daily dose does not meet guidelines. HIGH DOSE STATIN THERAPY DAILY Atorvastatin > than or = to 40 mg Rosuvastatin > than or = to 20 mg Amlodipine + Atorvastatin > than or = to 2.5/40 mg Ezetimibe + Simvastatin 10/80 mg Simvastatin 80mg Discharge Plan Admission Admit Date/Time: 04/26/24 14:32 Primary Reason for Your Visit: Debility. Attending Provider: Terrell Ortiz Chi Primary Care Provider: Fany Hobson Consulting Providers: Rocael Gamino; Ezio Rey; Jaylin Encinas; Natalie Leon; Trish Desouza; Heide White FURNACE ROASTER; Dinora Wheatley Instructions Additional Instructions / Restrictions: Discharge home 05/31/2024, [facility] PT[facility]OT/SN, [facility]. Discharge Orders/Prescriptions Prescriptions: New furosemide 40 mg Tablet 40 mg PO BIDLX 30 Days Qty: 60 0RF gabapentin 600 mg Tablet 1,500 mg PO QHS 30 Days Qty: 75 0RF sennosides-docusate sodium [Stimulant Laxative Plus] 8.6-50 mg Tablet 2 tab PO BID 30 Days Qty: 120 0RF acetaminophen 500 mg Tablet 1,000 mg PO Q6H PRN PRN (Reason: Pain Score 1-10) Qty: 0 0RF trazodone 100 mg Tablet 100 mg PO QHS 30 Days Qty: 30 0RF metoprolol succinate 25 mg Tablet Extended Release 24 Hr 25 mg PO DAILY 30 Days Qty: 30 0RF losartan 100 mg Tablet 100 mg PO DAILY 30 Days Qty: 30 0RF Continued cholecalciferol (vitamin D3) 5,000 unit capsule 5,000 unit PO DAILY rosuvastatin 20 mg tablet 20 mg PO DAILY pramipexole 0.5 MG tablet 0.5 mg PO TID ferrous sulfate 325 MG tablet 65 mg PO DAILY PreserVision AREDS 2,148 mcg-113 mg-45 mg-17.4mg tablet 1 tab PO BID melatonin 3 mg Tablet 3 mg PO QHS PRN PRN (Reason: Insomnia) Qty: 0 0RF levothyroxine 50 mcg Tablet 50 mcg PO DAILY@0600 Qty: 0 0RF Artificial Tears([id number]-[id number]) 1-0.2-0.2 % Drops 1 drp EACH EYE Q1H PRN (Reason: DRY EYES) Qty: 0 0RF Nasal Moisturizing 0.65 % aerosol,spray 2 spray intranasal Q2H PRN (Reason: dry nasal passages) Qty: 50 0RF Discontinued furosemide [Lasix] 40 mg tablet 60 mg PO DAILY Qty: 1 0RF docusate sodium 100 mg capsule 100 mg PO BID Rx Instructions: noon and bedtime trazodone 50 mg Tablet 50 mg PO QHS acetaminophen 325 mg Tablet 650 mg PO Q6H PRN PRN (Reason: Pain 1-10 Or Fever >100.7) Qty: 0 0RF ipratropium-albuterol 0.5 mg-3 mg(2.5 mg base)/3 mL Solution For Nebulization 3 ml inhalation 4X/DAY Qty: 0 0RF albuterol sulfate 2.5 mg /3 mL (0.083 %) Solution For Nebulization 2.5 mg inhalation Q2H PRN PRN (Reason: SOB &/OR WHEEZING) Qty: 0 0RF sennosides-docusate sodium [Stimulant Laxative Plus] 8.6-50 mg Tablet 2 tab PO BID Qty: 0 0RF prednisone 20 mg tablet 20 mg PO BID Qty: 7 0RF Rx Instructions: 1 twice a day for 3 days, then 1-1/2 daily for 3 days, then 1 daily for 3 days then discontinue medication metoprolol succinate 100 mg tablet extended release 24 hr 100 mg PO DAILY Qty: 90 3RF gabapentin 600 mg tablet 1,200 mg PO QHS amlodipine 5 mg tablet 5 mg PO DAILY Qty: 90 3RF losartan 50 mg tablet 50 mg PO BID Qty: 180 3RF Referrals / Follow Up: Fany Hobson DO [Primary Care Provider] - Jhonatan Lucas MD [Non-Staff -Ordering Privileges] - 12/19/24 10:00 am (parkinsons disease) Ivis Aggarwal NP, F[employer] ROASTER-C [Med Staff - Adv Practice Prof] - (F/U in 3 months) Disposition Disposition (needs filled in before D/C Order can be placed): Home Health Service
--- NOTE | 2024-05-24 19:18 | NURSING ---
Daughter Tiana updated on pt and biopsy results. Tiana concerned if pt needs follow up after discharge. Concerns noted in report.
[2024-05-24] MEDS: Gabapentin 600 MG Tablet 1500 MG PO ×2 (21:34→22:04)
--- NOTE | 2024-05-24 21:47 | NURSING ---
Patient c/o sore throat secondary to cough. Cough is not new per patient. This nurse consulted Dr. Ortiz via telephone, new orders to restart Robitussin 15 mL PO QHS and start 1 throat lozenge Q2H PRN. Orders read back and verified.
[2024-05-24] MEDS: BENZOCAINE/MENTHOL 1 LOZENGE MUCOUS MEM (22:04)
[2024-05-24] MEDS: guaiFENesin 10 ML UDC (200MG/10ML) 15 ML PO (22:04)
[2024-05-24] MEDS: Atorvastatin Calcium 40 MG Tablet PO (22:07)
[2024-05-24] MEDS: traZODone 100 MG Tablet PO (22:07)
[2024-05-25] VITALS (7 sets, daily range): BP systolic 113; BP diastolic 53; PULSE 67–85; RESP 16–22; TEMP 36.3; O2SAT 93–97; BMI 38.3
[2024-05-25] MEDS: Furosemide 40 MG Tablet PO ×2 (06:12→13:34)
[2024-05-25] MEDS: Pramipexole Di-HCl 0.5 MG Tablet PO ×3 (06:12→21:30)
[2024-05-25] MEDS: Levothyroxine 50 MCG Tablet PO (06:12)
[2024-05-25] MEDS: BENZOCAINE/MENTHOL 1 LOZENGE MUCOUS MEM (06:14)
[2024-05-25 06:16] LABS: Absolute Lymphocyte Count 1.23 X10^3/uL (0.83-4.51); Basophil# 0.03 X10^3/uL; Basophil% 0.4 % (0-1); Eosinophil# 0.23 X10^3/uL; Eosinophils% 2.7 % (0-5); Hemoglobin 9.6 g/dL (13.0-16.5); Lymphocyte # 1.23 X10^3/ul (0.83-4.51); Lymphocyte % 14.6 % (19-41); Mean Corpuscular Hgb 29.6 pg (27.0-32.0); Mean Corpuscular Volume 98.8 fL (80-94); Mean Platelet Vol. 10.4 fl (6.2-12.0); Monocyte# 0.85 X10^3/uL; Monocyte% 10.1 % (0-10); NRBC Flagged by Analyzer 0 % (0-5); Neutrophil # 5.97 X10^3/uL (2.7-7.7); Neutrophil % 70.9 % (47-70); POSITIVE MORPHOLOGY YES; Platelet Count 179 K/mm3 (150-450); RBC Distribution Width CV 19.3 % (11.6-14.6); RBC Distribution Width SD 69.1 fl (35.1-43.9); Red Blood Count 3.24 M/mm3 (4.6-6.2); White Blood Count 8.4 K/mm3 (4.4-11.0)
[2024-05-25 06:18] LABS: Differential Indicated SCAN CRITERIA MET
[2024-05-25 06:35] LABS: Anion Gap 2 (5-15); BUN 24 mg/dL (7-18); BUN/Creat Ratio 15.8 RATIO (10-20); Calcium,Total 9.5 mg/dL (8.5-10.1); Chloride 100 mmol/L (98-107); Creatinine, Serum 1.52 mg/dL (0.70-1.30); EST Glomerular Filtration Rate 47 mL/min (>60); Est Glom Filt Rate - Afr Amer 57 mL/min (>60); Estimated Creatinine Clearance 52.03 ml/min; Glucose 89 mg/dL (74-106); Potassium 3.7 mmol/L (3.5-5.1); Sodium Level 141 mmol/L (136-145)
[2024-05-25] MEDS: Budesonide Respules 0.5 MG/2 ML AMPUL.NEB. 1 MG INHALATION ×2 (06:43→18:51)
[2024-05-25] MEDS: Ipratropium/Albuterol Sulfate 3 ML AMPUL.NEB INHALATION ×3 (06:43→18:51)
[2024-05-25 06:49] LABS: Anisocytosis 1+; Differential Comment SCANNED; Platelet Estimate A (ADEQ); Polychromasia 1+
[2024-05-25] MEDS: Ferrous Sulfate 325 MG Tablet PO (09:14)
[2024-05-25] MEDS: Losartan Potassium 100 MG Tablet PO (09:14)
[2024-05-25] MEDS: Metoprolol(XL)Succ 25 MG Tablet PO (09:15)
[2024-05-25] MEDS: Multivitamin (Healthy Eyes) Capsule 1 CAP PO ×2 (09:15→21:30)
[2024-05-25] MEDS: Senna/Docusate Sodium 1 Tablet 2 TABLET PO ×2 (09:15→21:31)
[2024-05-25] MEDS: Menthol/Lanolin/Calamine/Znox 113 GM Tube 1 APPLIC TOPICAL ×2 (09:16→21:35)
[2024-05-25] MEDS: Nystatin Powder 15gm Bottle 1 APPLIC TOPICAL ×2 (09:17→21:38)
[2024-05-25] MEDS: Ensure Plus High Protein 120 ML LIQUID PO ×2 (09:19→21:29)
--- NOTE | 2024-05-25 16:02 | NURSING ---
attempted to call Tiana, no answer. left message to call this nurse
[2024-05-25] MEDS: guaiFENesin 10 ML UDC (200MG/10ML) 15 ML PO (21:28)
[2024-05-25] MEDS: Atorvastatin Calcium 40 MG Tablet PO (21:30)
[2024-05-25] MEDS: traZODone 100 MG Tablet PO (21:30)
[2024-05-25] MEDS: Gabapentin 600 MG Tablet 1500 MG PO (21:32)
[2024-05-25] MEDS: Sodium Chloride 0.65% 1 SPRAY SPRAY.BTL 2 SPRAY NASAL (21:36)
[2024-05-26] VITALS (9 sets, daily range): BP systolic 96–121; BP diastolic 45–61; PULSE 68–87; RESP 18–24; TEMP 36.3; O2SAT 95–97; BMI 38.1
[2024-05-26] MEDS: Furosemide 40 MG Tablet PO ×2 (05:28→14:51)
[2024-05-26] MEDS: Levothyroxine 50 MCG Tablet PO (05:29)
[2024-05-26] MEDS: Pramipexole Di-HCl 0.5 MG Tablet PO ×3 (05:29→21:46)
[2024-05-26 05:58] LABS: Hematocrit 33.2 % (40-54); Hemoglobin 10.2 g/dL (13.0-16.5)
[2024-05-26] MEDS: Budesonide Respules 0.5 MG/2 ML AMPUL.NEB. 1 MG INHALATION (07:25)
[2024-05-26] MEDS: Ipratropium/Albuterol Sulfate 3 ML AMPUL.NEB INHALATION ×3 (07:30→19:54)
--- NOTE | 2024-05-26 07:59 | CPS ---
patient refused vest.
[2024-05-26] MEDS: Losartan Potassium 100 MG Tablet PO (09:28)
[2024-05-26] MEDS: Ferrous Sulfate 325 MG Tablet PO (09:28)
[2024-05-26] MEDS: Senna/Docusate Sodium 1 Tablet 2 TABLET PO ×2 (09:29→21:48)
[2024-05-26] MEDS: Metoprolol(XL)Succ 25 MG Tablet PO (09:30)
[2024-05-26] MEDS: Multivitamin (Healthy Eyes) Capsule 1 CAP PO ×2 (09:30→21:47)
[2024-05-26] MEDS: Menthol/Lanolin/Calamine/Znox 113 GM Tube 1 APPLIC TOPICAL ×2 (09:31→21:49)
[2024-05-26] MEDS: Nystatin Powder 15gm Bottle 1 APPLIC TOPICAL ×2 (09:32→21:49)
[2024-05-26] MEDS: BENZOCAINE/MENTHOL 1 LOZENGE MUCOUS MEM (13:46)
--- NOTE | 2024-05-26 14:15 | RAD_ITS ---
STUDY: X-RAY CHEST REASON FOR EXAM: Male, 78 years old. Inc rased Cough and Chest congestion TECHNIQUE: PA and lateral views of the chest. COMPARISON: Comparison is made with prior study dated May 13, 2024. FINDINGS: A right-sided Port-A-Cath is seen with the tip at the junction of the superior vena cava and right atrium. Patchy infiltrates at both lower lobes slightly worse on the left side. Mild degree of vascular congestion. Follow-up recommended. There is no demonstrated pleural abnormality. Sternal cerclage wires and vascular clips are present from a prior sternotomy and coronary artery bypass graft procedure (CABG). Normal mediastinum and yovanny. Normal visualized pulmonary arteries. There is atherosclerotic calcification of the aortic arch with tortuosity. There is demineralization of the osseous structures. Normal visualized ribs, clavicles, and shoulders. There is no demonstrated abnormality of the visualized soft tissue structures of the upper abdomen. RAD/Chest PA and Lateral IMPRESSION: Patchy bibasilar infiltrates worse in the left lung base. Superimposed mild degree of CHF. Electronically Signed: Navdeep Pacheco MD at 15:28 EST ,
--- NOTE | 2024-05-26 16:39 | CASEMGMT ---
Social Work SW notified by nursing that Dr ordered IV ATB with stop date 06/01. Pt's discharge date will be postponed to 06/02. Nurse spoke with dtr and pt. This worker also phoned dtr to update. MARCO ANTONIO reissued new NOMNC with pt. MARCO ANTONIO updated [facility] HHC and Palliative Care. Plan: DC postponed to 06/02, with the same services in placed Nydia León USED BUILDING [employer] YARD WORKER MUSEUM EDUCATOR
[2024-05-26] MEDS: Furosemide 40 MG/4 ML Vial IV (16:42)
[2024-05-26] MEDS: Piperacil/Tazobactam 3.375 GM in 0.9% Normal Saline (50mL MB+) 50 ML IV ×2 (16:52→21:55)
[2024-05-26] MEDS: 0.9% Saline Lock 10 ML Syringe IV ×2 (16:54→21:46)
[2024-05-26] MEDS: 0.9% Normal Saline (100mL Bag) 100 ML 15 ML IV (16:57)
--- NOTE | 2024-05-26 18:50 | NURSING ---
Pt's daughter Tiana Updated on pt's new orders and Discharge date.
[2024-05-26] MEDS: Gabapentin 600 MG Tablet 1500 MG PO (21:45)
[2024-05-26] MEDS: guaiFENesin 10 ML UDC (200MG/10ML) 15 ML PO (21:48)
[2024-05-26] MEDS: Atorvastatin Calcium 40 MG Tablet PO (21:48)
[2024-05-26] MEDS: traZODone 100 MG Tablet PO (21:48)
[2024-05-26] MEDS: Sodium Chloride 0.65% 1 SPRAY SPRAY.BTL 2 SPRAY NASAL (22:09)
[2024-05-27] MEDS: 0.9% Saline Lock 10 ML Syringe IV ×4 (03:02→22:49)
[2024-05-27] MEDS: Furosemide 40 MG Tablet PO ×2 (05:24→13:53)
[2024-05-27] MEDS: Pramipexole Di-HCl 0.5 MG Tablet PO ×3 (05:24→22:40)
[2024-05-27] MEDS: Levothyroxine 50 MCG Tablet PO (05:24)
[2024-05-27] MEDS: Piperacil/Tazobactam 3.375 GM in 0.9% Normal Saline (50mL MB+) 50 ML IV ×3 (06:34→22:53)
[2024-05-27 07:22] VITALS: PULSE 80; RESP 18
[2024-05-27] MEDS: Ipratropium/Albuterol Sulfate 3 ML AMPUL.NEB INHALATION ×3 (07:22→20:06)
[2024-05-27] MEDS: Budesonide Respules 0.5 MG/2 ML AMPUL.NEB. 1 MG INHALATION ×2 (07:22→20:06)
[2024-05-27 08:14] VITALS: BP 113/63; PULSE 73; RESP 18; TEMP 36.4; O2SAT 93
[2024-05-27] MEDS: Losartan Potassium 100 MG Tablet PO (08:18)
[2024-05-27] MEDS: Multivitamin (Healthy Eyes) Capsule 1 CAP PO ×2 (08:18→22:40)
[2024-05-27] MEDS: Ferrous Sulfate 325 MG Tablet PO (08:18)
[2024-05-27 08:19] VITALS: PULSE 73
[2024-05-27] MEDS: Metoprolol(XL)Succ 25 MG Tablet PO (08:19)
[2024-05-27] MEDS: Nystatin Powder 15gm Bottle 1 APPLIC TOPICAL ×2 (08:19→22:41)
[2024-05-27] MEDS: Senna/Docusate Sodium 1 Tablet 2 TABLET PO ×2 (08:19→22:41)
[2024-05-27] MEDS: Menthol/Lanolin/Calamine/Znox 113 GM Tube 1 APPLIC TOPICAL ×2 (08:20→22:54)
--- NOTE | 2024-05-27 08:30 | NURSING ---
pt noted to have strong moist cough this AM but unable to expectorate secretions. pt pleasant and talkative. resting in bed, shaving. call light in reach.
--- NOTE | 2024-05-27 11:27 | PCM.PN.REN ---
Subjective Subjective Following for DELVIS on CKD. Patient feels relatively well today. He denies chest pain or shortness of breath at rest. He does get short of breath with exertion. Lower extremity edema has remains stable subjectively. t Objective Data Objective Data Vital Signs: Vital Signs Temp Pulse Resp BP Pulse Ox O2 Del Method O2 Flow Rate 97.5 F L 73 18 113/63 93 Nasal Cannula 3 05/27/24 08:14 05/27/24 08:19 05/27/24 08:14 05/27/24 08:14 05/27/24 08:14 05/27/24 08:14 05/27/24 08:14 FiO2 98 04/29/24 07:02 Oxygen Flow Rate (L/min) 3 Oxygen Delivery Method Nasal Cannula Weight: 120.519 kg Body Mass Index (BMI) 38.1 Intake & Output: Intake and Output for Last 24 Hours 05/25/24 05/26/24 05/27/24 23:59 23:59 23:59 Intake Total 1040 / 1040 1160 / 1160 500 / 500 Output Total 600 / 600 Balance 1040 / 1040 1160 / 1160 -100 / -100 Lab / Micro Data 05/26/24 05:16 05/25/24 05:10 Micro: Microbiology 05/26/24 13:50 Nasal Secretion SARS-CoV-2 Antigen (Rapid) - Final 05/24/24 05:30 Nasal Secretion SARS-CoV-2 Antigen (Rapid) - Final 05/17/24 06:30 Nasal Secretion SARS-CoV-2 Antigen (Rapid) - Final 05/13/24 09:46 Stool Stool Occult Blood (GENO) - Final Occult Blood Positive 05/05/24 17:52 Sputum, Expectorated/Coughed Gram Stain - Final 05/05/24 17:52 Sputum, Expectorated/Coughed Respiratory Culture - Final Pseudomonas aeruginosa 05/07/24 06:46 Nasal Secretion SARS-CoV-2 Antigen (Rapid) - Final 04/30/24 08:30 Nasal Secretion SARS-CoV-2 Antigen (Rapid) - Final Radiography Diagnostic Testing: Radiology Impression Chest X-Ray 05/26/24 14:15 IMPRESSION: Patchy bibasilar infiltrates worse in the left lung base. Superimposed mild degree of CHF. Electronically Signed: Navdeep Pacheco MD at 15:28 EST , Physical Exam Narrative Alert and orient x 3, no apparent distress. Sitting in wheelchair S1, S2, RRR Diminished breath sounds with diffuse rhonchi. 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 Millan, coronary artery disease status post CABG, COPD on 3 to 4 L nasal cannula at all times, chronic heart failure preserved EF (EF 60%), severe pulmonary hypertension who is currently in TCU unit receiving rehab after recent hospitalization for acute on chronic hypoxic respiratory failure felt to be multifactorial from influenza A, COPD exacerbation and a component of fluid overload due to chronic heart failure and severe pulmonary hypertension. Nephrology consulted for DELVIS on CKD. Acute kidney injury on chronic kidney disease stage G3b. In reviewing past serum creatinine trends from 2021 baseline creatinine seems to be ranging around 1.40 to 1.60 mg/dL. On 04/22/2024 creatinine 1.46, creatinine peaked 1.75 on 04/29, creatinine improved back to 1.43 on 05/02. Creatinine has slowly risen since 05/02/2024. On 05/08 creatinine increased to 2.17 and was 2.73 mg/dL on 05/11/2024. Renal ultrasound did not show any hydronephrosis, echogenic kidneys suggesting medical renal disease, no obstructive uropathy. Echo from 04/23/2024: Severe pulmonary hypertension, estimated EF 60%. DELVIS is most likely due to cardiorenal syndrome. Despite diuresis on 05/11/2024, renal function was stable on 05/12/2024 with serum creatinine of 2.13 mg/dL. Overall, serum creatinine has improved since 05/12/2024 despite restarting furosemide and losartan. Serum creatinine has decreased to 1.40 mg/dL on 05/18/2024 and remains relatively stable at 1.52 mg/dL on 05/25/2024. The patient was started back on scheduled furosemide on 05/18/2024. His oxygen requirement has not increased, and his weight has been stable. Okay to continue current dose of furosemide particularly since renal function has remained stable. Keep MAP above 65 mmHg. No acute indication for renal placement therapy at this time. Continue to monitor renal function, volume status, acid-base and electrolytes. Recheck renal function panel again tomorrow on 05/15/2024. Hypertension. BP is controlled. Losartan was restarted on 05/24/2024. Would recheck renal function and electrolytes again on 05/31/2024.
[2024-05-27 11:38] VITALS: BMI 38.1
[2024-05-27 13:05] VITALS: PULSE 80; RESP 16; O2SAT 95
[2024-05-27 13:47] VITALS: O2SAT 97
[2024-05-27] MEDS: Sodium Chloride 0.65% 1 SPRAY SPRAY.BTL 2 SPRAY NASAL (13:55)
[2024-05-27 20:06] VITALS: PULSE 78; RESP 20; O2SAT 94
[2024-05-27] MEDS: Gabapentin 600 MG Tablet 1500 MG PO (22:40)
[2024-05-27] MEDS: guaiFENesin 10 ML UDC (200MG/10ML) 15 ML PO (22:40)
[2024-05-27] MEDS: traZODone 100 MG Tablet PO (22:41)
[2024-05-27] MEDS: Atorvastatin Calcium 40 MG Tablet PO (22:41)
[2024-05-27] MEDS: 0.9% Normal Saline (100mL Bag) 100 ML 15 ML IV (22:53)
[2024-05-28] MEDS: Pramipexole Di-HCl 0.5 MG Tablet PO ×3 (05:34→22:19)
[2024-05-28] MEDS: Furosemide 40 MG Tablet PO ×2 (05:35→13:23)
[2024-05-28] MEDS: Levothyroxine 50 MCG Tablet PO (05:35)
[2024-05-28] MEDS: Piperacil/Tazobactam 3.375 GM in 0.9% Normal Saline (50mL MB+) 50 ML IV ×3 (05:36→22:38)
[2024-05-28 06:00] VITALS: BMI 38.2
[2024-05-28 07:22] VITALS: PULSE 85; RESP 16; O2SAT 91
[2024-05-28] MEDS: Ipratropium/Albuterol Sulfate 3 ML AMPUL.NEB INHALATION ×3 (07:22→20:34)
[2024-05-28] MEDS: Budesonide Respules 0.5 MG/2 ML AMPUL.NEB. 1 MG INHALATION ×2 (07:22→20:34)
[2024-05-28 08:46] VITALS: BP 117/58; PULSE 80
[2024-05-28] MEDS: Losartan Potassium 100 MG Tablet PO (08:46)
[2024-05-28] MEDS: Multivitamin (Healthy Eyes) Capsule 1 CAP PO ×2 (08:46→22:20)
[2024-05-28] MEDS: Ferrous Sulfate 325 MG Tablet PO (08:46)
[2024-05-28] MEDS: Senna/Docusate Sodium 1 Tablet 2 TABLET PO ×2 (08:46→22:19)
[2024-05-28] MEDS: Metoprolol(XL)Succ 25 MG Tablet PO (08:46)
[2024-05-28] MEDS: Nystatin Powder 15gm Bottle 1 APPLIC TOPICAL ×2 (08:47→22:21)
[2024-05-28] MEDS: Menthol/Lanolin/Calamine/Znox 113 GM Tube 1 APPLIC TOPICAL ×2 (08:48→22:21)
[2024-05-28 13:00] VITALS: PULSE 85; RESP 16
[2024-05-28 13:26] VITALS: BP 112/57; PULSE 80; RESP 20; TEMP 36.1; O2SAT 91
[2024-05-28 13:59] VITALS: BP 114/52; PULSE 78; RESP 16; TEMP 36.1; O2SAT 94
[2024-05-28] MEDS: 0.9% Saline Lock 10 ML Syringe IV ×2 (14:31→22:17)
[2024-05-28 20:34] VITALS: PULSE 68; RESP 24
[2024-05-28] MEDS: Gabapentin 600 MG Tablet 1500 MG PO (22:15)
[2024-05-28] MEDS: guaiFENesin 10 ML UDC (200MG/10ML) 15 ML PO (22:18)
[2024-05-28] MEDS: traZODone 100 MG Tablet PO (22:20)
[2024-05-28] MEDS: Atorvastatin Calcium 40 MG Tablet PO (22:20)
[2024-05-28] MEDS: Sodium Chloride 0.65% 1 SPRAY SPRAY.BTL 2 SPRAY NASAL (22:27)
[2024-05-28] MEDS: 0.9% Normal Saline (100mL Bag) 100 ML 15 ML IV (22:37)
[2024-05-29] VITALS (7 sets, daily range): BP systolic 119–124; BP diastolic 58–85; PULSE 72–81; RESP 16–24; TEMP 36.4; O2SAT 92–98; BMI 38.0
--- NOTE | 2024-05-29 02:55 | NURSING ---
Left voicemail for SW regarding the delay of discharge date for an extra day d/t treatment of pneumonia with IV antibiotics. Nursing communication entered 05/27/[address] Ortiz to delay discharge for an extra day, which would be 06/03/24.
[2024-05-29] MEDS: 0.9% Saline Lock 10 ML Syringe IV ×2 (06:26→14:42)
[2024-05-29] MEDS: Levothyroxine 50 MCG Tablet PO (06:29)
[2024-05-29] MEDS: Furosemide 40 MG Tablet PO ×2 (06:29→13:57)
[2024-05-29] MEDS: Piperacil/Tazobactam 3.375 GM in 0.9% Normal Saline (50mL MB+) 50 ML IV ×3 (06:29→22:09)
[2024-05-29] MEDS: Pramipexole Di-HCl 0.5 MG Tablet PO ×3 (06:29→22:01)
[2024-05-29] MEDS: Budesonide Respules 0.5 MG/2 ML AMPUL.NEB. 1 MG INHALATION ×2 (07:14→19:28)
[2024-05-29] MEDS: Ipratropium/Albuterol Sulfate 3 ML AMPUL.NEB INHALATION ×3 (07:14→19:28)
[2024-05-29] MEDS: Polyethylene Glycol 3350 17 GM PACKET PO (07:59)
[2024-05-29] MEDS: Ferrous Sulfate 325 MG Tablet PO (07:59)
[2024-05-29] MEDS: Metoprolol(XL)Succ 25 MG Tablet PO (07:59)
[2024-05-29] MEDS: Senna/Docusate Sodium 1 Tablet 2 TABLET PO ×2 (08:00→22:00)
[2024-05-29] MEDS: Losartan Potassium 100 MG Tablet PO (08:00)
[2024-05-29] MEDS: Multivitamin (Healthy Eyes) Capsule 1 CAP PO ×2 (08:00→22:00)
[2024-05-29] MEDS: Menthol/Lanolin/Calamine/Znox 113 GM Tube 1 APPLIC TOPICAL ×2 (08:00→22:19)
[2024-05-29] MEDS: Nystatin Powder 15gm Bottle 1 APPLIC TOPICAL ×2 (08:01→22:17)
[2024-05-29] MEDS: guaiFENesin 10 ML UDC (200MG/10ML) 15 ML PO (22:00)
[2024-05-29] MEDS: Atorvastatin Calcium 40 MG Tablet PO (22:01)
[2024-05-29] MEDS: traZODone 100 MG Tablet PO (22:01)
[2024-05-29] MEDS: Gabapentin 600 MG Tablet 1500 MG PO (22:01)
[2024-05-29] MEDS: Sodium Chloride 0.65% 1 SPRAY SPRAY.BTL 2 SPRAY NASAL (22:19)
[2024-05-30] MEDS: Pramipexole Di-HCl 0.5 MG Tablet PO ×3 (06:24→22:01)
[2024-05-30] MEDS: Levothyroxine 50 MCG Tablet PO (06:25)
[2024-05-30] MEDS: Furosemide 40 MG Tablet PO ×2 (06:25→14:16)
[2024-05-30] MEDS: Piperacil/Tazobactam 3.375 GM in 0.9% Normal Saline (50mL MB+) 50 ML IV ×3 (06:42→22:14)
[2024-05-30 06:46] VITALS: PULSE 83; RESP 18
[2024-05-30 07:52] VITALS: BP 120/56; PULSE 82
[2024-05-30] MEDS: Senna/Docusate Sodium 1 Tablet 2 TABLET PO ×2 (07:52→22:02)
[2024-05-30] MEDS: Metoprolol(XL)Succ 25 MG Tablet PO (07:52)
[2024-05-30] MEDS: Multivitamin (Healthy Eyes) Capsule 1 CAP PO ×2 (07:53→22:01)
[2024-05-30] MEDS: Menthol/Lanolin/Calamine/Znox 113 GM Tube 1 APPLIC TOPICAL ×2 (07:53→22:04)
[2024-05-30] MEDS: Ferrous Sulfate 325 MG Tablet PO (07:53)
[2024-05-30] MEDS: Losartan Potassium 100 MG Tablet PO (07:53)
[2024-05-30] MEDS: Nystatin Powder 15gm Bottle 1 APPLIC TOPICAL ×2 (07:53→22:03)
[2024-05-30] MEDS: Polyethylene Glycol 3350 17 GM PACKET PO (07:54)
[2024-05-30 08:00] VITALS: BP 120/56; PULSE 82; RESP 18; TEMP 36.4; O2SAT 92
[2024-05-30 08:10] VITALS: PULSE 76; RESP 22; O2SAT 96
[2024-05-30] MEDS: Budesonide Respules 0.5 MG/2 ML AMPUL.NEB. 1 MG INHALATION ×2 (08:10→19:09)
[2024-05-30] MEDS: Ipratropium/Albuterol Sulfate 3 ML AMPUL.NEB INHALATION ×3 (08:10→19:09)
[2024-05-30 13:02] VITALS: PULSE 77; RESP 22
[2024-05-30] MEDS: 0.9% Saline Lock 10 ML Syringe IV ×2 (14:46→22:10)
[2024-05-30 19:12] VITALS: PULSE 78; RESP 20
--- NOTE | 2024-05-30 19:15 | CPS ---
Pt asking to take a break from the chest vest this round
[2024-05-30] MEDS: guaiFENesin 10 ML UDC (200MG/10ML) 15 ML PO (21:58)
[2024-05-30] MEDS: Gabapentin 600 MG Tablet 1500 MG PO (22:00)
[2024-05-30] MEDS: traZODone 100 MG Tablet PO (22:01)
[2024-05-30] MEDS: Atorvastatin Calcium 40 MG Tablet PO (22:02)
[2024-05-30] MEDS: Sodium Chloride 0.65% 1 SPRAY SPRAY.BTL 2 SPRAY NASAL (22:04)
[2024-05-31] VITALS (7 sets, daily range): BP systolic 118; BP diastolic 57; PULSE 75–83; RESP 15–20; TEMP 36.6; O2SAT 92–94; BMI 38.0
[2024-05-31] MEDS: Piperacil/Tazobactam 3.375 GM in 0.9% Normal Saline (50mL MB+) 50 ML IV ×3 (06:14→20:58)
[2024-05-31] MEDS: Levothyroxine 50 MCG Tablet PO (06:15)
[2024-05-31] MEDS: Furosemide 40 MG Tablet PO ×2 (06:15→13:07)
[2024-05-31] MEDS: Pramipexole Di-HCl 0.5 MG Tablet PO ×3 (06:15→21:00)
[2024-05-31 06:36] LABS: Albumin, Serum 3.2 g/dL (3.2-5.0); BUN 19 mg/dL (7-18); BUN/Creat Ratio 11.3 RATIO (10-20); Calcium,Total 9.8 mg/dL (8.5-10.1); Chloride 104 mmol/L (98-107); Creatinine, Serum 1.68 mg/dL (0.70-1.30); EST Glomerular Filtration Rate 42 mL/min (>60); Est Glom Filt Rate - Afr Amer 51 mL/min (>60); Estimated Creatinine Clearance 47.13 ml/min; Glucose 93 mg/dL (74-106); Phosphorus 2.8 mg/dL (2.5-4.9); Potassium 3.4 mmol/L (3.5-5.1); Sodium Level 141 mmol/L (136-145)
[2024-05-31] MEDS: Ipratropium/Albuterol Sulfate 3 ML AMPUL.NEB INHALATION ×3 (07:15→19:50)
[2024-05-31] MEDS: Budesonide Respules 0.5 MG/2 ML AMPUL.NEB. 1 MG INHALATION ×2 (07:15→19:50)
[2024-05-31] MEDS: Ferrous Sulfate 325 MG Tablet PO (08:42)
[2024-05-31] MEDS: Losartan Potassium 100 MG Tablet PO (08:42)
[2024-05-31] MEDS: Senna/Docusate Sodium 1 Tablet 2 TABLET PO ×2 (08:42→21:01)
[2024-05-31] MEDS: Metoprolol(XL)Succ 25 MG Tablet PO (08:42)
[2024-05-31] MEDS: Multivitamin (Healthy Eyes) Capsule 1 CAP PO ×2 (08:42→21:00)
[2024-05-31] MEDS: Potassium Chloride Oral Tablet 20 MEQ PO (08:43)
[2024-05-31] MEDS: Nystatin Powder 15gm Bottle 1 APPLIC TOPICAL ×2 (08:43→21:11)
[2024-05-31] MEDS: Menthol/Lanolin/Calamine/Znox 113 GM Tube 1 APPLIC TOPICAL ×2 (08:44→21:11)
--- NOTE | 2024-05-31 08:49 | CASEMGMT ---
Social Work SW received VM from nurse about IV ATB stop date. SW spoke with floor nurse and charge nurse. Pt has an eye Dr carney on 06/02 that pt will need discharged to attend and will not receive final dose of ATB. Dr demarco. Nydia León, ASSISTANT PRESSMAN GLOBAL LOGISTICS MANAGER
--- NOTE | 2024-05-31 10:49 | NURSING ---
noted lg bruise to rt side, pt stated he lost his balance with therapy last week and she caught him with gait belt, feels like it may have been from that?
--- NOTE | 2024-05-31 12:42 | PCM.PN.REN ---
Subjective Subjective Ambulating in room with walker. No overnight events. Objective Data Objective Data Vital Signs: Vital Signs Temp Pulse Resp BP Pulse Ox O2 Del Method O2 Flow Rate 98 F 83 15 118/57 L 92 Nasal Cannula 4 05/31/24 08:34 05/31/24 10:00 05/31/24 10:00 05/31/24 08:34 05/31/24 08:34 05/31/24 10:00 05/31/24 10:00 FiO2 98 04/29/24 07:02 Oxygen Flow Rate (L/min) 4 Oxygen Delivery Method Nasal Cannula Weight: 120.4 kg Body Mass Index (BMI) 38.0 Intake & Output: Intake and Output for Last 24 Hours 05/29/24 05/30/24 05/31/24 23:59 23:59 23:59 Intake Total 1570.0 / 1570.0 850 / 850 340 / 340 Balance 1570.0 / 1570.0 850 / 850 340 / 340 Lab / Micro Data 05/26/24 05:16 05/31/24 05:30 Labs: Laboratory Results - last 24 hr 05/31/24 05:30: Sodium 141, Potassium 3.4 L, Chloride 104, Carbon Dioxide 33.0 H, BUN 19 H, Creatinine 1.68 H, Estim Creat Clear Calc 47.13, Est GFR (MDRD) Af Amer 51 L, Est GFR (MDRD) Non-Af 42 L, BUN/Creatinine Ratio 11.3, Glucose 93, Calcium 9.8, Phosphorus 2.8, Albumin 3.2 Micro: Microbiology 05/31/24 09:45 Nasal Secretion SARS-CoV-2 Antigen (Rapid) - Final 05/26/24 13:50 Nasal Secretion SARS-CoV-2 Antigen (Rapid) - Final 05/24/24 05:30 Nasal Secretion SARS-CoV-2 Antigen (Rapid) - Final 05/17/24 06:30 Nasal Secretion SARS-CoV-2 Antigen (Rapid) - Final 05/13/24 09:46 Stool Stool Occult Blood (GENO) - Final Occult Blood Positive 05/05/24 17:52 Sputum, Expectorated/Coughed Gram Stain - Final 05/05/24 17:52 Sputum, Expectorated/Coughed Respiratory Culture - Final Pseudomonas aeruginosa 05/07/24 06:46 Nasal Secretion SARS-CoV-2 Antigen (Rapid) - Final 04/30/24 08:30 Nasal Secretion SARS-CoV-2 Antigen (Rapid) - Final Physical Exam Narrative Alert and orient x 3, no apparent distress. 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 Millan, coronary artery disease status post CABG, COPD on 3 to 4 L nasal cannula at all times, chronic heart failure preserved EF (EF 60%), severe pulmonary hypertension who is currently in TCU unit receiving rehab after recent hospitalization for acute on chronic hypoxic respiratory failure felt to be multifactorial from influenza A, COPD exacerbation and a component of fluid overload due to chronic heart failure and severe pulmonary hypertension. Nephrology consulted for DELVIS on CKD. - Acute kidney injury on chronic kidney disease stage G3b. In reviewing past serum creatinine trends from 2021 baseline creatinine seems to be ranging around 1.40 to 1.60 mg/dL. On 04/22/2024 creatinine 1.46. On 05/08 creatinine increased to 2.17 and was 2.73 mg/dL on 05/11/2024 (this was peak). Renal ultrasound did not show any hydronephrosis, echogenic kidneys suggesting medical renal disease, no obstructive uropathy. Echo from 04/23/2024: Severe pulmonary hypertension, estimated EF 60%. DELVIS is most likely due to cardiorenal syndrome. Despite diuresis on 05/11/2024, renal function was stable on 05/12/2024 with serum creatinine of 2.13 mg/dL. Last labs from today SCr 1.68mg/dL. Overall, serum creatinine has improved since 05/12/2024 despite restarting furosemide and losartan. Serum creatinine has decreased to 1.40 mg/dL on 05/18/2024 and remains relatively stable The patient was started back on scheduled furosemide on 05/18/2024, currently on 40mg po BID. His oxygen requirement has not increased, and his weight has been stable. Weight ~120 to 121kg over past few weeks. Okay to continue current dose of furosemide particularly since renal function has remained stable. Reviewed with patient importance of daily am weights once home. Also reviewed appropriate daily fluid amount intake. - Hypertension. BP is controlled on Losartan, Toprol and lasix. No changes today. - possible discharge planned for 06/02. Will arrange for hospital follow-up in [place] office. Discussed with patient.
[2024-05-31] MEDS: 0.9% Saline Lock 10 ML Syringe IV ×2 (13:09→20:59)
--- NOTE | 2024-05-31 15:20 | CASEMGMT ---
Social Work SW completed BIMS () and PHQ-2 () for MDS assessment. SW confirmed all entities are in place for pt's DC 06/02. SW received phone call from dtr this morning to confirm DC as well. Nydia León, LINE PREP COOK TIN POURER
--- NOTE | 2024-05-31 20:48 | CPS ---
Pt declined vest therapy tonight,
[2024-05-31] MEDS: Gabapentin 600 MG Tablet 1500 MG PO (20:58)
[2024-05-31] MEDS: traZODone 100 MG Tablet PO (20:59)
[2024-05-31] MEDS: guaiFENesin 10 ML UDC (200MG/10ML) 15 ML PO (21:00)
[2024-05-31] MEDS: Atorvastatin Calcium 40 MG Tablet PO (21:00)
[2024-06-01] MEDS: 0.9% Saline Lock 10 ML Syringe IV ×3 (05:57→23:01)
[2024-06-01] MEDS: Pramipexole Di-HCl 0.5 MG Tablet PO ×3 (05:57→23:03)
[2024-06-01] MEDS: Levothyroxine 50 MCG Tablet PO (05:58)
[2024-06-01] MEDS: Furosemide 40 MG Tablet PO ×2 (05:58→14:24)
[2024-06-01 06:00] VITALS: BP 122/61; PULSE 74; BMI 38.0
[2024-06-01] MEDS: Piperacil/Tazobactam 3.375 GM in 0.9% Normal Saline (50mL MB+) 50 ML IV ×3 (06:00→23:09)
[2024-06-01 06:25] LABS: Anion Gap 5 (5-15); BUN 18 mg/dL (7-18); BUN/Creat Ratio 10.9 RATIO (10-20); Chloride 106 mmol/L (98-107); Creatinine, Serum 1.65 mg/dL (0.70-1.30); EST Glomerular Filtration Rate 43 mL/min (>60); Est Glom Filt Rate - Afr Amer 52 mL/min (>60); Estimated Creatinine Clearance 47.99 ml/min; Glucose 92 mg/dL (74-106); Potassium 3.2 mmol/L (3.5-5.1); Sodium Level 144 mmol/L (136-145)
[2024-06-01 06:31] VITALS: PULSE 78; RESP 16; O2SAT 95
[2024-06-01] MEDS: Ipratropium/Albuterol Sulfate 3 ML AMPUL.NEB INHALATION ×2 (06:31→19:50)
[2024-06-01] MEDS: Budesonide Respules 0.5 MG/2 ML AMPUL.NEB. 1 MG INHALATION ×2 (06:31→19:50)
[2024-06-01 08:19] VITALS: BP 113/52; PULSE 81
[2024-06-01] MEDS: Metoprolol(XL)Succ 25 MG Tablet PO (08:19)
[2024-06-01] MEDS: Ferrous Sulfate 325 MG Tablet PO (08:19)
[2024-06-01] MEDS: Multivitamin (Healthy Eyes) Capsule 1 CAP PO ×2 (08:20→23:02)
[2024-06-01] MEDS: Losartan Potassium 100 MG Tablet PO (08:20)
[2024-06-01] MEDS: Menthol/Lanolin/Calamine/Znox 113 GM Tube 1 APPLIC TOPICAL ×2 (08:20→23:11)
[2024-06-01] MEDS: Potassium Chloride Oral Tablet 20 MEQ PO ×2 (08:20→17:15)
[2024-06-01] MEDS: Polyethylene Glycol 3350 17 GM PACKET PO (08:20)
[2024-06-01] MEDS: Nystatin Powder 15gm Bottle 1 APPLIC TOPICAL ×2 (08:21→23:03)
[2024-06-01] MEDS: Senna/Docusate Sodium 1 Tablet 2 TABLET PO ×2 (08:21→23:03)
--- NOTE | 2024-06-01 10:44 | CASEMGMT ---
Social Work SW sent O2 script and testing and transport w/c script and documentation to [facility] via [facility]. Nydia León JOB PUTTER UP AND TICKET PREPARER BREWER HELPER
[2024-06-01 14:33] VITALS: BP 119/65; PULSE 86
[2024-06-01 17:03] VITALS: O2SAT 94
[2024-06-01 19:50] VITALS: PULSE 80; RESP 16; O2SAT 99
[2024-06-01] MEDS: guaiFENesin 10 ML UDC (200MG/10ML) 15 ML PO (23:01)
[2024-06-01] MEDS: Gabapentin 600 MG Tablet 1500 MG PO (23:01)
[2024-06-01] MEDS: Atorvastatin Calcium 40 MG Tablet PO (23:02)
[2024-06-01] MEDS: traZODone 100 MG Tablet PO (23:03)
[2024-06-02] MEDS: Pramipexole Di-HCl 0.5 MG Tablet PO (06:08)
[2024-06-02] MEDS: Levothyroxine 50 MCG Tablet PO (06:08)
[2024-06-02] MEDS: 0.9% Saline Lock 10 ML Syringe IV ×2 (06:08→09:52)
[2024-06-02] MEDS: Furosemide 40 MG Tablet PO (06:09)
[2024-06-02] MEDS: Piperacil/Tazobactam 3.375 GM in 0.9% Normal Saline (50mL MB+) 50 ML IV (06:11)
[2024-06-02 06:14] VITALS: BP 135/67; PULSE 73
[2024-06-02 06:16] VITALS: PULSE 73; RESP 17
[2024-06-02 06:52] LABS: Anion Gap 2 (5-15); BUN 17 mg/dL (7-18); BUN/Creat Ratio 10.1 RATIO (10-20); Calcium,Total 9.5 mg/dL (8.5-10.1); Chloride 107 mmol/L (98-107); Creatinine, Serum 1.68 mg/dL (0.70-1.30); EST Glomerular Filtration Rate 42 mL/min (>60); Est Glom Filt Rate - Afr Amer 51 mL/min (>60); Estimated Creatinine Clearance 47.07 ml/min; Glucose 83 mg/dL (74-106); Potassium 3.7 mmol/L (3.5-5.1); Sodium Level 144 mmol/L (136-145)
[2024-06-02 07:25] VITALS: PULSE 88; RESP 19; O2SAT 95
[2024-06-02] MEDS: Ipratropium/Albuterol Sulfate 3 ML AMPUL.NEB INHALATION (07:26)
[2024-06-02] MEDS: Budesonide Respules 0.5 MG/2 ML AMPUL.NEB. 1 MG INHALATION (07:27)
[2024-06-02 09:45] VITALS: BP 140/59; PULSE 89; RESP 20; TEMP 36.3; O2SAT 94
[2024-06-02] MEDS: Potassium Chloride Oral Tablet 20 MEQ PO (09:49)
[2024-06-02] MEDS: Ferrous Sulfate 325 MG Tablet PO (09:49)
[2024-06-02 09:50] VITALS: PULSE 89
[2024-06-02] MEDS: Losartan Potassium 100 MG Tablet PO (09:50)
[2024-06-02] MEDS: Metoprolol(XL)Succ 25 MG Tablet PO (09:50)
[2024-06-02] MEDS: Senna/Docusate Sodium 1 Tablet 2 TABLET PO (09:50)
[2024-06-02] MEDS: Multivitamin (Healthy Eyes) Capsule 1 CAP PO (09:50)
[2024-06-02] MEDS: Polyethylene Glycol 3350 17 GM PACKET PO (09:50)
[2024-06-02] MEDS: Menthol/Lanolin/Calamine/Znox 113 GM Tube 1 APPLIC TOPICAL (09:51)
[2024-06-02] MEDS: Nystatin Powder 15gm Bottle 1 APPLIC TOPICAL (09:51)
== END 2024-06-02 12:00 | disposition home health service (06) | DRG 193 ==
PROVIDERS: Internal Medicine Nephrology; Nurse Practitioner Adult Health; Admitting Provider Family Medicine Geriatric Medicine; PCP Internal Medicine; Referring Provider Family Medicine Geriatric Medicine; Visit Provider Family Medicine Geriatric Medicine
DX: J10.1 Influenza due to other identified influenza virus with other respiratory manifestations (principal); I50.33 Acute on chronic diastolic (congestive) heart failure; J91.8 Pleural effusion in other conditions classified elsewhere; B37.0 Candidal stomatitis; J96.11 Chronic respiratory failure with hypoxia; I13.0 Hypertensive heart and chronic kidney disease with heart failure and stage 1 through stage 4 chronic kidney disease, or unspecified chronic kidney disease; N17.9 Acute kidney failure, unspecified; I27.20 Pulmonary hypertension, unspecified; J43.9 Emphysema, unspecified; F02.80 Dementia in other diseases classified elsewhere, unspecified severity, without behavioral disturbance, psychotic disturbance, mood disturbance, and anxiety; E11.40 Type 2 diabetes mellitus with diabetic neuropathy, unspecified; N18.32 Chronic kidney disease, stage 3b; G20.A1 Parkinson's disease without dyskinesia, without mention of fluctuations; D50.0 Iron deficiency anemia secondary to blood loss (chronic); E03.9 Hypothyroidism, unspecified; K25.9 Gastric ulcer, unspecified as acute or chronic, without hemorrhage or perforation; I48.91 Unspecified atrial fibrillation; G62.9 Polyneuropathy, unspecified; E53.8 Deficiency of other specified B group vitamins; I25.10 Atherosclerotic heart disease of native coronary artery without angina pectoris; E55.9 Vitamin D deficiency, unspecified; H35.30 Unspecified macular degeneration; E78.5 Hyperlipidemia, unspecified; G47.33 Obstructive sleep apnea (adult) (pediatric); K29.00 Acute gastritis without bleeding; E11.22 Type 2 diabetes mellitus with diabetic chronic kidney disease; J20.2 Acute bronchitis due to streptococcus; Z79.890 Hormone replacement therapy; Z87.891 Personal history of nicotine dependence; Z95.5 Presence of coronary angioplasty implant and graft; G47.00 Insomnia, unspecified; Z99.81 Dependence on supplemental oxygen; Z79.899 Other long term (current) drug therapy; B35.4 Tinea corporis; Z79.52 Long term (current) use of systemic steroids; Z92.21 Personal history of antineoplastic chemotherapy; Z23 Encounter for immunization
CPT/HCPCS: 36415; 71046; 76705; 76770; 80048; 80069; 81001; 82274; 82306; 85014; 85018; 85025; 87070; 87077; 87186; 87205; 87811; 90662; 92507; 92523; 94640; 94667; 94668; 97110; 97116; 97162; 97166; 97530; 97535; 97802; G0008; J7030; A4216; J1940; J2405

== ENCOUNTER 2024-05-19 14:45 | Day surgery (SDC) | payer MEDICARE, OTHER, SELFPAY ==
[2024-05-19] VITALS (8 sets, daily range): BP systolic 102–133; BP diastolic 53–66; PULSE 76–99; RESP 16–20; TEMP 36.4–37; O2SAT 90–95
--- NOTE | 2024-05-19 14:48 | PRE.ANES_ITS ---
ASA Classification* ASA Classification ASA Classification: 3 Assessment & Plan Anesthesia* Anesthesia Assessment Anesthesia Assessment: Discussed sedation and/or anesthesia options, risks, benefits, and alternatives with patient/parents/legal guardian/POA. Questions invited. The patient/parents/legal guardian/POA seems to understand and agrees to proceed with anesthesia plan. Reviewed the physical assessment, medical history, allergy history and patient home medications list prior to surgery/procedure/anesthetic and documented any changes. Performed airway and anesthesia risk assessments. Anesthesia Type Anesthesia Type: MAC History Source History Obtained from:: Patient and Chart Anesthesia Focused Assessment* Airway Assessment Mouth opens: >3 cm Mallampati Score: III Focused Labs Anesthesia Preop lab: CBC WBC 9.6 K/mm3 (4.4-11.0) 05/18/24 05:13 RBC 3.29 M/mm3 (4.6-6.2) L 05/18/24 05:13 Hgb 9.8 g/dL (13.0-16.5) L 05/18/24 05:13 Hct 31.6 % (40-54) L 05/18/24 05:13 Plt Count 156 K/mm3 (150-450) 05/18/24 05:13 CHEMISTRY Potassium 4.5 mmol/L (3.5-5.1) 05/18/24 05:13 Sodium 137 mmol/L (136-145) 05/18/24 05:13 Magnesium 2.5 mg/dL (1.6-2.6) 04/25/24 22:43 Phosphorus 3.3 mg/dL (2.5-4.9) 05/15/24 07:41 BUN 21 mg/dL (7-18) H 05/18/24 05:13 Creatinine 1.40 mg/dL (0.70-1.30) H 05/18/24 05:13 Glucose 105 mg/dL (74-106) 05/18/24 05:13 POC Glucose 154 mg/dL (74-106) H 03/17/22 11:35 TSH 0.654 uIU/mL (0.358-3.740) 04/23/24 06:28 COAG PT 14.9 SECONDS (11.7-14.9) 03/08/22 14:23 Pre-Assessment Diagnosis/Proposed Procedure Planned Operative Procedure(s): EGD Anesthesia History Anesthesia 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 When Was Last Pacemaker Check QUESTION #4 FULL TEXT: You/Your Family Experience fever (hyperthermia) with Anesthesia Last Oral Intake Last Oral intake: Last Oral Intake NPO since Meds taken in AM with sips of water? Meds patient instructed to take am of surgery PONV PONV - sales representative groceries: PONV - sales representative groceries Female HX of Motion Sickness HX of N/V After Surgery Non-Smoker Duration of Surgery greater than 60 minutes Number of Risk Factors PONV Score Height & Weight Height & Weight: Anesthesia: Height & Weight Height 5 ft 10 in 05/10/24 13:07 Respiratory Assessment Respiratory Assessment - sales representative groceries: Respiratory Tract Infection Hx - sales representative groceries Hx Respiratory Tract Infection No 04/16/24 14:10 STOP Sleep Apnea STOP Sleep Apnea - sales representative groceries: STOP Sleep Apnea - sales representative groceries Hx Hypertension Yes 04/27/24 13:01 Hx Sleep Apnea Yes 04/26/24 14:45 CPAP Yes 04/26/24 14:45 BIPAP No 04/26/24 14:45 Do you snore loudly (louder than talking or can be heard Do you often feel tired/ fatigued/ sleepy during daytime? Has anyone observed you stop breathing during sleep? STOP Results QUESTION #5 FULL TEXT : Do you snore loudly (louder than talking or can be heard through closed doors)? 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 Specify any problems Hx of Preganancy in last 3 Months Nurse Filling Out Transfusion & Questions: Date: Time: Patient unable to answer at this time (ie. confused, unrespo /Reproduction History /Reproductive History - sales representative groceries: /Reproductive Hx- sales representative groceries Hx Now Gestational Age (in weeks): EDC: Hx Hx Para Hx Section SAB No 04/16/24 14:10 [facility] Medical History History of lung cancer Adrenal mass History of Parkinson's disease History of atrial fibrillation Hx of cancer of lung Pulmonary hypertension Emphysema, unspecified History of echocardiogram History of stress test Hypertension History of atrial fibrillation Hx of fracture of ankle COVID Chronic combined systolic and diastolic CHF (congestive heart failure) Severe pulmonary arterial systolic hypertension Wears glasses Uses wheelchair Walker as ambulation aid Ambulates with cane Arthritis Anemia Migraine headache Injury of head and neck Parkinson's disease Gastric reflux Former smoker BiPAP (biphasic positive airway pressure) dependence COPD (chronic obstructive pulmonary disease) On home oxygen therapy History of pain when walking History of edema Amputated great toe of left foot Amputation of one or more toes Chronic ulcer of left foot with fat layer exposed Hammer toe of left foot Toe osteomyelitis Right ventricular dilation, secondary Right ventricular systolic dysfunction Respiratory failure with hypoxia Diverticular disease Polyp of colon, adenomatous Chronic gastritis Multiple premature ventricular complexes Longstanding persistent atrial fibrillation Hyperlipidemia Acute kidney injury NSTEMI (non-ST elevated myocardial infarction) (12/02/19) Sepsis Gastric AVM Adenocarcinoma of lung, stage 1 GI bleed Iron deficiency anemia due to chronic blood loss Atherosclerosis of coronary artery of [place] heart without angina pectoris Cancer of upper lobe of left lung 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 Benign essential hypertension HEBER (obstructive sleep apnea) Dementia Parkinsons Essential tremor GERD (gastroesophageal reflux disease) Alcohol dependence Home Medications ?Medication ?Instructions ?Recorded ?Last Taken ?Type pramipexole 0.5 mg tablet 0.5 mg PO TID parkinsons 12/04/16 04/26/24 05:52 History docusate sodium 100 mg capsule 100 mg PO BID bowels 10/20/17 07/14/20 History ferrous sulfate 325 mg (65 mg 65 mg PO DAILY supplement 02/01/19 07/14/20 History iron) tablet cholecalciferol (vitamin D3) 125 5,000 unit PO DAILY cholesterol 03/30/19 07/14/20 History mcg (5,000 unit) capsule trazodone 50 mg tablet 50 mg PO QHS sleep 03/21/21 Unknown History rosuvastatin 20 mg tablet 20 mg PO DAILY cholesterol 03/05/22 04/26/24 09:15 History vitamins A,C,P-tyhr-ljpwkz 2,148 1 tab PO BID eye health 03/27/22 Unknown History mcg-113 mg-45 mg-17.4 mg tablet (PreserVision AREDS) metoprolol succinate 100 mg 100 mg PO DAILY bp,heart #90 tabs 08/18/23 04/26/24 09:10 Rx tablet,extended release 24 hr gabapentin 600 mg tablet 1,200 mg PO QHS nerve pain 09/23/23 Unknown History amlodipine 5 mg tablet 5 mg PO DAILY htn #90 tabs 12/11/23 04/26/24 09:15 Rx losartan 50 mg tablet 50 mg PO BID BP #180 TABLETS 03/19/24 04/26/24 09:15 Rx acetaminophen 325 mg tablet 650 mg (2 x 325 mg) PO Q6H PRN PRN 04/26/24 04/25/24 21:15 Rx Pain 1-10 Or Fever >100.7 #0 tabs albuterol sulfate 2.5 mg/3 mL 2.5 mg (3 mL) inhalation Q2H PRN 04/26/24 Unknown Rx (0.083 %) solution for nebulization PRN SOB &/OR WHEEZING #0 mL ipratropium 0.5 mg-albuterol 3 mg 3 ml inhalation 4X/DAY breathing 04/26/24 04/26/24 11:50 Rx (2.5 mg base)/3 mL nebulization #0 mL soln levothyroxine 50 mcg tablet 50 mcg PO DAILY@0600 Thyroid #0 04/26/24 04/26/24 05:55 Rx tabs melatonin 3 mg tablet 3 mg PO QHS PRN PRN Insomnia #0 04/26/24 04/25/24 21:15 Rx tabs peg [id number] 1 1 drp EACH EYE Q1H PRN DRY EYES #0 04/26/24 04/25/24 10:10 Rx %-0.2 %-0.2 % eye drops mL (Artificial Tears ([id number])) prednisone 20 mg tablet 20 mg PO BID Steroid #7 tabs 04/26/24 Unknown Rx sennosides 8.6 mg-docusate sodium 2 tab PO BID Constipation #0 tabs 04/26/24 04/26/24 09:15 Rx 50 mg tablet (Stimulant Laxative Plus) sodium chloride 0.65 % nasal spray 2 spray intranasal Q2H PRN dry 04/26/24 04/26/24 09:10 Rx aerosol (Nasal Moisturizing) nasal passages #50 mL furosemide 40 mg tablet (Lasix) 60 mg (1.5 x 40 mg) PO DAILY fluid 05/10/24 Unknown Rx #1 TAB Allergy/AdvReac Type Severity Reaction Status Date / Time No Known Allergies Allergy Verified 05/10/24 13:12 Family History Sister Alcoholism Cancer Mother Arthritis Father Arthritis Brother Cancer Surgical History History of transurethral resection of prostate Hx of toe surgery SURGICAL REMOVAL LEFT GREAT TOE History of right and left heart catheterization (12/04/16) History of colonoscopy (03/22/20) History of esophagogastroduodenoscopy (03/22/20) History of left heart catheterization (2016) History of coronary artery stent placement (12/23/06) Status post insertion of iliac artery stent (08/04/12) Status post surgical removal of neoplasm of skin History of tonsillectomy and adenoidectomy History of hammer toe correction History of open reduction and internal fixation (ORIF) procedure History of open reduction and internal fixation (ORIF) procedure History of lobectomy of lung History of cardioversion (12/2016) H/O coronary artery bypass surgery (02/14/06) Social History household members: spouse Smoking Status: Former smoker quit date: 11/14/93 how long ago did patient quit smokin years ago second hand exposure: No alcohol intake: current alcohol intake frequency: holidays/special occasions only Alcohol type: wine substance use type: does not use caffeine: Yes Type: coffee Number of servings: 1 what type of physical activity do you participate in: none frequency: does not exercise seatbelt use: always Review of Systems (Anesthesia) ROS Narrative System reviewed and no additional complaints, except as documented.
--- NOTE | 2024-05-19 14:48 | PRE.ANES_ITS ---
ASA Classification* ASA Classification ASA Classification: 3 Assessment & Plan Anesthesia* Anesthesia Assessment Anesthesia Assessment: Discussed sedation and/or anesthesia options, risks, benefits, and alternatives with patient/parents/legal guardian/POA. Questions invited. The patient/parents/legal guardian/POA seems to understand and agrees to proceed with anesthesia plan. Reviewed the physical assessment, medical history, allergy history and patient home medications list prior to surgery/procedure/anesthetic and documented any changes. Performed airway and anesthesia risk assessments. Anesthesia Type Anesthesia Type: MAC History Source History Obtained from:: Patient and Chart Anesthesia Focused Assessment* Temperature: 98.6 F Pulse Rate: 78 Blood Pressure: 133/61 Respiratory Rate: 16 Pulse Ox: 95 Oxygen Delivery Method: Nasal Cannula Airway Assessment Mouth opens: >3 cm Mallampati Score: III Teeth Condition: Chipped/Broken (Patient has multiple chipped teeth.) and Missing (Patient has several missing teeth. The rest are tight) Neck Range of motion (ROM): Limited ROM (Slightly decreased extension) Focused Labs Anesthesia Preop lab: CBC WBC 9.6 K/mm3 (4.4-11.0) 05/18/24 05:13 RBC 3.29 M/mm3 (4.6-6.2) L 05/18/24 05:13 Hgb 9.8 g/dL (13.0-16.5) L 05/18/24 05:13 Hct 31.6 % (40-54) L 05/18/24 05:13 Plt Count 156 K/mm3 (150-450) 05/18/24 05:13 CHEMISTRY Potassium 4.5 mmol/L (3.5-5.1) 05/18/24 05:13 Sodium 137 mmol/L (136-145) 05/18/24 05:13 Magnesium 2.5 mg/dL (1.6-2.6) 04/25/24 22:43 Phosphorus 3.3 mg/dL (2.5-4.9) 05/15/24 07:41 BUN 21 mg/dL (7-18) H 05/18/24 05:13 Creatinine 1.40 mg/dL (0.70-1.30) H 05/18/24 05:13 Glucose 105 mg/dL (74-106) 05/18/24 05:13 POC Glucose 154 mg/dL (74-106) H 03/17/22 11:35 TSH 0.654 uIU/mL (0.358-3.740) 04/23/24 06:28 COAG PT 14.9 SECONDS (11.7-14.9) 03/08/22 14:23 Pre-Assessment Diagnosis/Proposed Procedure Planned Operative Procedure(s): Esophagogastroduodenoscopy Anesthesia History Anesthesia History - creative coordinator: Anesthesia History - creative coordinator Hx Hospitalization Yes: UTI'S 04/16/24 14:10 Any Problems With Anesthesia Yes: SLOW TO AWAKEN 04/16/24 14:10 Cholinesterase deficiency No 04/16/24 14:10 You/Your Family Experience No 04/16/24 14:10 fever (hyperthermia) with Relationship Recent Exposure to Contagious No 04/16/24 14:10 Disease Does patient have nerve No 04/16/24 14:10 stimulator Patient instructed to have device shut off --Does patient have Pacemaker or ICD? When Was Last Pacemaker Check QUESTION #4 FULL TEXT: You/Your Family Experience fever (hyperthermia) with Anesthesia Last Oral Intake Last Oral intake: Last Oral Intake NPO since Meds taken in AM with sips of water? Meds patient instructed to take am of surgery PONV PONV - creative coordinator: PONV - creative coordinator Female HX of Motion Sickness HX of N/V After Surgery Non-Smoker Duration of Surgery greater than 60 minutes Number of Risk Factors PONV Score Height & Weight Height & Weight: Anesthesia: Height & Weight Height 5 ft 10 in 05/10/24 13:07 Respiratory Assessment Respiratory Assessment - creative coordinator: Respiratory Tract Infection Hx - creative coordinator Hx Respiratory Tract Infection No 04/16/24 14:10 STOP Sleep Apnea STOP Sleep Apnea - creative coordinator: STOP Sleep Apnea - creative coordinator Hx Hypertension Yes 04/27/24 13:01 Hx Sleep Apnea Yes 04/26/24 14:45 CPAP Yes 04/26/24 14:45 BIPAP No 04/26/24 14:45 Do you snore loudly (louder than talking or can be heard Do you often feel tired/ fatigued/ sleepy during daytime? Has anyone observed you stop breathing during sleep? STOP Results QUESTION #5 FULL TEXT : Do you snore loudly (louder than talking or can be heard through closed doors)? 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 Specify any problems Hx of Preganancy in last 3 Months Nurse Filling Out Transfusion & Questions: Date: Time: Patient unable to answer at this time (ie. confused, unrespo /Reproduction History /Reproductive History - creative coordinator: /Reproductive Hx- creative coordinator Hx Now Gestational Age (in weeks): EDC: Hx Hx Para Hx Section SAB No 04/16/24 14:10 [facility] Medical History History of lung cancer Adrenal mass History of Parkinson's disease History of atrial fibrillation Hx of cancer of lung Pulmonary hypertension Emphysema, unspecified History of echocardiogram History of stress test Hypertension History of atrial fibrillation Hx of fracture of ankle COVID Chronic combined systolic and diastolic CHF (congestive heart failure) Severe pulmonary arterial systolic hypertension Wears glasses Uses wheelchair Walker as ambulation aid Ambulates with cane Arthritis Anemia Migraine headache Injury of head and neck Parkinson's disease Gastric reflux Former smoker BiPAP (biphasic positive airway pressure) dependence COPD (chronic obstructive pulmonary disease) On home oxygen therapy History of pain when walking History of edema Amputated great toe of left foot Amputation of one or more toes Chronic ulcer of left foot with fat layer exposed Hammer toe of left foot Toe osteomyelitis Right ventricular dilation, secondary Right ventricular systolic dysfunction Respiratory failure with hypoxia Diverticular disease Polyp of colon, adenomatous Chronic gastritis Multiple premature ventricular complexes Longstanding persistent atrial fibrillation Hyperlipidemia Acute kidney injury NSTEMI (non-ST elevated myocardial infarction) (12/02/19) Sepsis Gastric AVM Adenocarcinoma of lung, stage 1 GI bleed Iron deficiency anemia due to chronic blood loss Atherosclerosis of coronary artery of [place] heart without angina pectoris Cancer of upper lobe of left lung 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 Benign essential hypertension HEBER (obstructive sleep apnea) Dementia Parkinsons Essential tremor GERD (gastroesophageal reflux disease) Alcohol dependence Home Medications ?Medication ?Instructions ?Recorded ?Last Taken ?Type pramipexole 0.5 mg tablet 0.5 mg PO TID parkinsons 12/04/16 04/26/24 05:52 History docusate sodium 100 mg capsule 100 mg PO BID bowels 10/20/17 07/14/20 History ferrous sulfate 325 mg (65 mg 65 mg PO DAILY supplement 02/01/19 07/14/20 History iron) tablet cholecalciferol (vitamin D3) 125 5,000 unit PO DAILY cholesterol 03/30/19 07/14/20 History mcg (5,000 unit) capsule trazodone 50 mg tablet 50 mg PO QHS sleep 03/21/21 Unknown History rosuvastatin 20 mg tablet 20 mg PO DAILY cholesterol 03/05/22 04/26/24 09:15 History vitamins A,C,G-ygeh-glswlt 2,148 1 tab PO BID eye health 03/27/22 Unknown History mcg-113 mg-45 mg-17.4 mg tablet (PreserVision AREDS) metoprolol succinate 100 mg 100 mg PO DAILY bp,heart #90 tabs 08/18/23 04/26/24 09:10 Rx tablet,extended release 24 hr gabapentin 600 mg tablet 1,200 mg PO QHS nerve pain 09/23/23 Unknown History amlodipine 5 mg tablet 5 mg PO DAILY htn #90 tabs 12/11/23 04/26/24 09:15 Rx losartan 50 mg tablet 50 mg PO BID BP #180 TABLETS 03/19/24 04/26/24 09:15 Rx acetaminophen 325 mg tablet 650 mg (2 x 325 mg) PO Q6H PRN PRN 04/26/24 04/25/24 21:15 Rx Pain 1-10 Or Fever >100.7 #0 tabs albuterol sulfate 2.5 mg/3 mL 2.5 mg (3 mL) inhalation Q2H PRN 04/26/24 Unknown Rx (0.083 %) solution for nebulization PRN SOB &/OR WHEEZING #0 mL ipratropium 0.5 mg-albuterol 3 mg 3 ml inhalation 4X/DAY breathing 04/26/24 04/26/24 11:50 Rx (2.5 mg base)/3 mL nebulization #0 mL soln levothyroxine 50 mcg tablet 50 mcg PO DAILY@0600 Thyroid #0 04/26/24 04/26/24 05:55 Rx tabs melatonin 3 mg tablet 3 mg PO QHS PRN PRN Insomnia #0 04/26/24 04/25/24 21:15 Rx tabs peg [id number] 1 1 drp EACH EYE Q1H PRN DRY EYES #0 04/26/24 04/25/24 10:10 Rx %-0.2 %-0.2 % eye drops mL (Artificial Tears ([id number])) prednisone 20 mg tablet 20 mg PO BID Steroid #7 tabs 04/26/24 Unknown Rx sennosides 8.6 mg-docusate sodium 2 tab PO BID Constipation #0 tabs 04/26/24 04/26/24 09:15 Rx 50 mg tablet (Stimulant Laxative Plus) sodium chloride 0.65 % nasal spray 2 spray intranasal Q2H PRN dry 04/26/24 04/26/24 09:10 Rx aerosol (Nasal Moisturizing) nasal passages #50 mL furosemide 40 mg tablet (Lasix) 60 mg (1.5 x 40 mg) PO DAILY fluid 05/10/24 Unkn own Rx #1 TAB Allergy/AdvReac Type Severity Reaction Status Date / Time No Known Allergies Allergy Verified 05/10/24 13:12 Family History Sister Alcoholism Cancer Mother Arthritis Father Arthritis Brother Cancer Surgical History History of transurethral resection of prostate Hx of toe surgery SURGICAL REMOVAL LEFT GREAT TOE History of right and left heart catheterization (12/04/16) History of colonoscopy (03/22/20) History of esophagogastroduodenoscopy (03/22/20) History of left heart catheterization (2016) History of coronary artery stent placement (12/23/06) Status post insertion of iliac artery stent (08/04/12) Status post surgical removal of neoplasm of skin History of tonsillectomy and adenoidectomy History of hammer toe correction History of open reduction and internal fixation (ORIF) procedure History of open reduction and internal fixation (ORIF) procedure History of lobectomy of lung History of cardioversion (12/2016) H/O coronary artery bypass surgery (02/14/06) Social History household members: spouse Smoking Status: Former smoker quit date: 11/14/93 how long ago did patient quit smokin years ago second hand exposure: No alcohol intake: current alcohol intake frequency: holidays/special occasions only Alcohol type: wine substance use type: does not use caffeine: Yes Type: coffee Number of servings: 1 what type of physical activity do you participate in: none frequency: does not exercise seatbelt use: always Review of Systems (Anesthesia) ROS Narrative System reviewed and no additional complaints, except as documented.
--- NOTE | 2024-05-19 14:52 | PCM.HP.BLA ---
History and Physical Date of Admission: 05/19/24 HPI Narrative Reason for Consultation: Anemia with Hemoccult positive stools HPI Narrative: JV DURHAM, is a 78-year-old gentleman former smoker with a complicated multiple chronic medical illnesses including severe oxygen dependent COPD, CAD, chronic atrial fibrillation, diabetes, hypertension, morbid obesity, DJD, chronic peripheral neuropathy and possible past history of excessive alcohol consumption.? In March 2017 a chest x-ray prompted a CAT scan of the chest and then a PET CT which showed an abnormal left upper lobe nodule measuring 2.3 cm in maximum diameter highly suspicious for malignancy. ? Due to limited lung reserve the patient went straight to surgery and on 05/16/2017 he underwent left VATS procedure with left upper lobe wedge resection that revealed an adenocarcinoma measuring 1.8 cm in maximum diameter.? Tumor was grade 3, unifocal, resection margin was 0.2 cm but there was visceral pleural invasion.? No lymphovascular invasion was present and no lymph nodes were dissected.? He was previously diagnosed with chronic/recurrent iron deficiency anemia due to chronic GI blood loss and episodic acute.? In September 2017, then an acute upper GI bleed EGD at [facility] showed bleeding AVMs.? Since then he had been on oral iron supplemented with IV to target ferritin over 100 and transferrin saturation over 20% due to concomitant multiple chronic diseases including stage III chronic renal failure.? Upper and lower GI endoscopies [address] Alcala showed a large tubular adenoma of the hepatic flexure that was biopsied.? Gastritis and diverticular disease also identified.? Being a high surgical risk was referred to [facility] for further management of the tubular adenoma, and in September 2020 underwent resection of polyps from the cecum, transverse colon and ascending colon all of which showed tubular adenomas with no dysplasia or malignancy. He has not had an upper or lower endoscopy since September 2020. [facility] Medical History History of lung cancer Adrenal mass History of Parkinson's disease History of atrial fibrillation Hx of cancer of lung Pulmonary hypertension Emphysema, unspecified History of echocardiogram History of stress test Hypertension History of atrial fibrillation Hx of fracture of ankle COVID Chronic combined systolic and diastolic CHF (congestive heart failure) Severe pulmonary arterial systolic hypertension Wears glasses Uses wheelchair Walker as ambulation aid Ambulates with cane Arthritis Anemia Migraine headache Injury of head and neck Parkinson's disease Gastric reflux Former smoker BiPAP (biphasic positive airway pressure) dependence COPD (chronic obstructive pulmonary disease) On home oxygen therapy History of pain when walking History of edema Amputated great toe of left foot Amputation of one or more toes Chronic ulcer of left foot with fat layer exposed Hammer toe of left foot Toe osteomyelitis Right ventricular dilation, secondary Right ventricular systolic dysfunction Respiratory failure with hypoxia Diverticular disease Polyp of colon, adenomatous Chronic gastritis Multiple premature ventricular complexes Longstanding persistent atrial fibrillation Hyperlipidemia Acute kidney injury NSTEMI (non-ST elevated myocardial infarction) (12/02/19) Sepsis Gastric AVM Adenocarcinoma of lung, stage 1 GI bleed Iron deficiency anemia due to chronic blood loss Atherosclerosis of coronary artery of [place] heart without angina pectoris Cancer of upper lobe of left lung 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 Benign essential hypertension HEBER (obstructive sleep apnea) Dementia Parkinsons Essential tremor GERD (gastroesophageal reflux disease) Alcohol dependence Home Medications ?Medication ?Instructions ?Recorded ?Last Taken ?Type pramipexole 0.5 mg tablet 0.5 mg PO TID parkinsons 12/04/16 04/26/24 05:52 History docusate sodium 100 mg capsule 100 mg PO BID bowels 10/20/17 07/14/20 History ferrous sulfate 325 mg (65 mg 65 mg PO DAILY supplement 02/01/19 07/14/20 History iron) tablet cholecalciferol (vitamin D3) 125 5,000 unit PO DAILY cholesterol 03/30/19 07/14/20 History mcg (5,000 unit) capsule trazodone 50 mg tablet 50 mg PO QHS sleep 03/21/21 Unknown History rosuvastatin 20 mg tablet 20 mg PO DAILY cholesterol 03/05/22 04/26/24 09:15 History vitamins A,C,D-uixf-uucqyg 2,148 1 tab PO BID eye health 03/27/22 Unknown History mcg-113 mg-45 mg-17.4 mg tablet (PreserVision AREDS) metoprolol succinate 100 mg 100 mg PO DAILY bp,heart #90 tabs 08/18/23 04/26/24 09:10 Rx tablet,extended release 24 hr gabapentin 600 mg tablet 1,200 mg PO QHS nerve pain 09/23/23 Unknown History amlodipine 5 mg tablet 5 mg PO DAILY htn #90 tabs 12/11/23 04/26/24 09:15 Rx losartan 50 mg tablet 50 mg PO BID BP #180 TABLETS 03/19/24 04/26/24 09:15 Rx acetaminophen 325 mg tablet 650 mg (2 x 325 mg) PO Q6H PRN PRN 04/26/24 04/25/24 21:15 Rx Pain 1-10 Or Fever >100.7 #0 tabs albuterol sulfate 2.5 mg/3 mL 2.5 mg (3 mL) inhalation Q2H PRN 04/26/24 Unknown Rx (0.083 %) solution for nebulization PRN SOB &/OR WHEEZING #0 mL ipratropium 0.5 mg-albuterol 3 mg 3 ml inhalation 4X/DAY breathing 04/26/24 04/26/24 11:50 Rx (2.5 mg base)/3 mL nebulization #0 mL soln levothyroxine 50 mcg tablet 50 mcg PO DAILY@0600 Thyroid #0 04/26/24 04/26/24 05:55 Rx tabs melatonin 3 mg tablet 3 mg PO QHS PRN PRN Insomnia #0 04/26/24 04/25/24 21:15 Rx tabs peg [id number] 1 1 drp EACH EYE Q1H PRN DRY EYES #0 04/26/24 04/25/24 10:10 Rx %-0.2 %-0.2 % eye drops mL (Artificial Tears ([id number])) prednisone 20 mg tablet 20 mg PO BID Steroid #7 tabs 04/26/24 Unknown Rx sennosides 8.6 mg-docusate sodium 2 tab PO BID Constipation #0 tabs 04/26/24 04/26/24 09:15 Rx 50 mg tablet (Stimulant Laxative Plus) sodium chloride 0.65 % nasal spray 2 spray intranasal Q2H PRN dry 04/26/24 04/26/24 09:10 Rx aerosol (Nasal Moisturizing) nasal passages #50 mL furosemide 40 mg tablet (Lasix) 60 mg (1.5 x 40 mg) PO DAILY fluid 05/10/24 Unknown Rx #1 TAB Allergy/AdvReac Type Severity Reaction Status Date / Time No Known Allergies Allergy Verified 05/10/24 13:12 Family History Sister Alcoholism CancerMother ArthritisFather ArthritisBrother Cancer Surgical History History of transurethral resection of prostate Hx of toe surgery SURGICAL REMOVAL LEFT GREAT TOE History of right and left heart catheterization (12/04/16) History of colonoscopy (03/22/20) History of esophagogastroduodenoscopy (03/22/20) History of left heart catheterization (2016) History of coronary artery stent placement (12/23/06) Status post insertion of iliac artery stent (08/04/12) Status post surgical removal of neoplasm of skin History of tonsillectomy and adenoidectomy History of hammer toe correction History of open reduction and internal fixation (ORIF) procedure History of open reduction and internal fixation (ORIF) procedure History of lobectomy of lung History of cardioversion (12/2016) H/O coronary artery bypass surgery (02/14/06) Social History household members: spouse Smoking Status: Former smoker quit date: 11/14/93 how long ago did patient quit smokin years ago second hand exposure: No alcohol intake: current alcohol intake frequency: holidays/special occasions only Alcohol type: wine substance use type: does not use caffeine: Yes Type: coffee Number of servings: 1 what type of physical activity do you participate in: none frequency: does not exercise seatbelt use: always ROS ROS Narrative As in HPI Physical Exam Narrative Alert and orient x 3, no apparent distress. Sitting in recliner chair S1, S2, RRR Diminished breath sounds with diffuse rhonchi. Abdomen soft, nontender, positive bowel sounds No lower extreme edema Lab / Micro Data 05/17/24 07:42 05/15/24 07:41 Labs: Laboratory Results - last 24 hr 05/17/24 07:42: WBC 10.5, RBC 3.30 L, Hgb 9.8 L, Hct 32.0 L, MCV 97.0 H, MCH 29.7, MCHC 30.6 L, RDW Std Deviation 56.7 H, RDW Coeff of [place] 16.7 H, Plt Count 158, MPV 9.7, Immature Gran % (Auto) 3.900 H, Neut % (Auto) 73.7 H, Lymph % (Auto) 10.2 L, [place] % (Auto) 9.3, Eos % (Auto) 2.6, Baso % (Auto) 0.3, Absolute Neuts (auto) 7.8 H, Absolute Lymphs (auto) 1.07, Nucleated RBC % 0 Micro: Microbiology 05/17/24 06:30 Nasal Secretion SARS-CoV-2 Antigen (Rapid) - Final Assessment & Plan Assessment/Plan (1) CKD (chronic kidney disease), stage III: (2) DELVIS (acute kidney injury): (3) Chronic combined systolic and diastolic CHF (congestive heart failure): (4) Iron deficiency anemia: (5) Atrial fibrillation: PLAN: Plan 78-year-old male with past medical history significant for adenocarcinoma of the left upper lobe status post VATS resection and chemo in remission now on surveillance followed by Dr. Millan. He also has a coronary artery disease status post CABG, COPD on 3 to 4 L nasal cannula at all times, chronic heart failure preserved EF (EF 60%), severe pulmonary hypertension who is currently in TCU unit receiving rehab after recent hospitalization for acute on chronic hypoxic respiratory failure felt to be multifactorial from influenza A, COPD exacerbation and a component of fluid overload due to chronic heart failure and severe pulmonary hypertension. I was consulted due to worsening anemia in the setting of fecal occult positive stools. Acute blood loss anemia He has multiple risk factors for angiodysplastic lesions, gave, gastritis, peptic ulcer disease also history of polyps which increases risk of GI blood loss. He should undergo an upper and lower endoscopy and possible capsule endoscopy. He was explained alternatives, risk, benefits include not withstanding bleeding, infection, sepsis, perforation, need for emergent urgent . He will have an ASA of 3.. I have examined the patient and the H&P has been reviewed. There are no clinical changes since date of exam.
--- NOTE | 2024-05-19 15:19 | OP.EGD_ITS ---
Patient Name: Vickey Haney Procedure Date: 05/19/2024 2:49 PM Date of : 1945 Age: 78 Procedure: Upper GI endoscopy Indications: Iron deficiency anemia, Heme positive stool Providers: Gaurav Bennett DO Medicines: Monitored Anesthesia Care Patient Profile: This is a 78 year old male. Refer to note in patient chart for documentation of history and physical. Patient has symptoms of acute cough and acute nausea. Complications: No immediate complications. Procedure: Pre-Anesthesia Assessment: - Prior to the procedure, a History and Physical was performed, and patient medications and allergies were reviewed. The patient is competent. The risks and benefits of the procedure and the sedation options and risks were discussed with the patient. All questions were answered and informed consent was obtained. Patient identification and proposed procedure were verified by the physician in the pre-procedure area. Mental Status Examination: alert and oriented. Airway Examination: normal oropharyngeal airway and neck mobility. Respiratory Examination: clear to auscultation. CV Examination: normal. Prophylactic Antibiotics: The patient does not require prophylactic antibiotics. Prior Anticoagulants: The patient has taken no anticoagulant or antiplatelet agents. ASA Grade Assessment: III - A patient with severe systemic disease. After reviewing the risks and benefits, the patient was deemed in satisfactory condition to undergo the procedure. The anesthesia plan was to use monitored anesthesia care (MAC). Immediately prior to administration of medications, the patient was re-assessed for adequacy to receive sedatives. The heart rate, respiratory rate, oxygen saturations, blood pressure, adequacy of pulmonary ventilation, and response to care were monitored throughout the procedure. The physical status of the patient was re-assessed after the procedure. After obtaining informed consent, the endoscope was passed under direct vision. Throughout the procedure, the patient's blood pressure, pulse, and oxygen saturations were monitored continuously. The Endoscope was introduced through the mouth, and advanced to the second part of duodenum. The upper GI endoscopy was accomplished without difficulty. The patient tolerated the procedure well. Scope In: 3:08:03 PM Scope Out: 3:11:27 PM Total Procedure Duration Time 0 hours 3 minutes 24 seconds Findings: The examined esophagus was normal. Localized moderate inflammation characterized by erosions, erythema, friability and granularity was found in the gastric body. Biopsies were taken with a cold forceps for histology. Verification of patient identification for the specimen was done. Estimated blood loss was minimal. Biopsies were taken with a cold forceps for Helicobacter pylori testing. Verification of patient identification for the specimen was done. Estimated blood loss was minimal. Three non-bleeding linear gastric ulcers with no stigmata of bleeding were found in the gastric antrum. The largest lesion was 6 mm in largest dimension. Biopsies were taken with a cold forceps for histology. Verification of patient identification for the specimen was done. Estimated blood loss was minimal. No gross lesions were noted in the first portion of the duodenum. Impression: - Normal esophagus. - Acute gastritis. Biopsied. - Non-bleeding gastric ulcers with no stigmata of bleeding. Biopsied. - No gross lesions in the first portion of the duodenum. Recommendation: - Discharge patient to a senior care. - Resume previous diet. - Continue present medications. - Await pathology results. Procedure Code(s): --- Professional --- 32770, Esophagogastroduodenoscopy, flexible, transoral; with biopsy, single or multiple CPT copyright 2021 [employer]. All rights reserved. The codes documented in this report are preliminary and upon medical biller/coder review may be revised to meet current compliance requirements. Gaurav Bennett DO 05/19/2024 3:18:57 PM This report has been signed electronically. Number of Addenda: 0 Note Initiated On: 05/19/2024 2:49 PM
--- NOTE | 2024-05-19 15:19 | OP.CCLET_ITS ---
05/19/2024 Fany Hobson Re : Upper GI endoscopy procedure for Vickey Kay Joce This procedure was performed on Sunday, May 19, 2024. My impressions and recommendations are as follows: Impressions : - Normal esophagus. - Acute gastritis. Biopsied. - Non-bleeding gastric ulcers with no stigmata of bleeding. Biopsied. - No gross lesions in the first portion of the duodenum. Recommendations : - Discharge patient to a detention. - Resume previous diet. - Continue present medications. - Await pathology results. My findings are described in the full procedure note, which is enclosed. If I can be of further assistance, please feel free to contact me at . Sincerely, Gaurav Bennett, 05/19/2024 3:18:57 PM This report has been signed electronically.
--- NOTE | 2024-05-19 15:28 | PCM.POST.ANE ---
Anesthesia: Postop Eval I Current Vital Signs Temperature: 97.6 F Pulse Rate: 76 Blood Pressure: 102/53 Respiratory Rate: 20 Pulse Ox: 92 Oxygen Delivery Method: Nasal Cannula Oxygen Flow Rate (L/min): 4 Assessment Airway patent: Yes Spontaneous unlabored respirations: Yes Mental status: Awake and Calm nausea: No Vomiting: No Anesthesia Complication: No Fluid Hydration Crystalloid volume administer (ml): 30 Total IV fluid infused: 30 Progress Note Anesthesia document: Postop Eval 1 completed: Yes
--- NOTE | 2024-05-19 15:36 | PCM.POSTANE2 ---
Anesthesia Postop Eval I Sum Postop Eval Completion status Anesthesia document: Postop Eval 1 completed: Yes Anesthesia Postop Eval I Summary Anesthesia Postop Eval I Summary: Anesthesia Postop Eval I: Assessment Summary Airway patent Yes 05/19/24 15:29 [email or web address] Spontaneous unlabored Yes 05/19/24 15:29 [email or web address] respirations Mental status Awake,Calm 05/19/24 15:29 [email or web address] nausea No 05/19/24 15:29 [email or web address] Vomiting No 05/19/24 15:29 [email or web address] Anesthesia Postop Eval I: Fluid Summary Crystalloid volume administer 30 05/19/24 15:29 [email or web address] (ml) Colloids volume administered ( ml) Blood Product volume administered (ml) Total IV fluid infused 30 05/19/24 15:29 [email or web address] Anesthesia Postop Eval I: Summary Notes Anesthesia Complication No 05/19/24 15:29 [email or web address] Anesthesia Complication Comment: Post-operative progress note Anesthesia: Postop Eval II Evaluation Mental status: Awake and Calm Pain Level: 0 nausea: No Vomiting: No Complications Anesthesia Complication: No
--- NOTE | 2024-05-19 16:30 | EGD_PTH ---
PATIENT: JV DURHAM Jr. LOC: EN U#:[id number] AGE/SX: 78/M ROOM: RE05/19/[address]: Dr. Gaurav Bennett DO : 1945 BED: DIS: 05/19/2024 SPEC #: [id number] RECD: 05/20/24 07:52 STATUS: ELIZABETH REFranklyn #: [id number] ROXANA: 05/19/24 16:[address]: Gaurav Bennett DEPT: SURGICAL PATHOLOGY RECD BY: Candace Guido ENTERED: 05/20/24 10:09 SP TYPE: EGD BIOPSY OT DR: Dr. Fany Hobson DO Tissues: A - Gastric mucous membrane B - Gastric mucous membrane Procedures: Surgery Specimen Level IV HEADER OPERATION: EGD with biopsy PRE-OP DIAGNOSIS: Acute blood loss anemia TISSUE SUBMITTED: A- Gastric ulcer biopsy, B- Gastric body biopsy MICROSCOPIC DIAGNOSIS A. Gastric ulcer, biopsy: Mild chronic inflammation. Focal intestinal metaplasia. No evidence of dysplasia. See comment. B. Gastric body, biopsy: Mild chronic gastritis. See comment. AM. 05/21/2024 COMMENT A. Immunohistochemistry ([id number]) for P53 and Ki-67 will be performed and results will be reported separately. B. The results of immunohistochemistry for Helicobacter pylori will be reported separately ([id number]). MICROSCOPIC DESCRIPTION Slides are reviewed. GROSS DESCRIPTION A. Received in fixative is one container labeled with the patient's name and designated Gastric ulcer biopsy. The specimen consists of one irregular fragment of light leary soft tissue that measures 0.5 x 0.3 x 0.1 cm. The specimen is totally submitted in one cassette. B. Received in fixative is one container labeled with the patient's name and designated Gastric body biopsy. The specimen consists of two irregular fragments of light leary soft tissue that in aggregate measure 0.8 x 0.5 x 0.1 cm. The specimen is totally submitted in one cassette. AM. 05/20/2024 TC:3 CPT:93716r2
--- NOTE | 2024-05-19 16:30 | IMM_PTH ---
PATIENT: JV DURHAM Jr. LOC: EN U#:[id number] AGE/SX: 78/M ROOM: RE05/19/[address]: Dr. Gaurav Bennett DO : 1945 BED: DIS: 05/19/2024 SPEC #: [id number] RECD: 05/20/24 09:58 STATUS: ELIZABETH REQ #: [id number] ROXANA: 05/19/24 16:[address]: Gaurav Bennett DEPT: IMMUNOHISTOCHEMISTRY RECD BY: Rj Perez ENTERED: 05/20/24 09:58 SP TYPE: IMMUNO OTHR DR: Dr. Fany Hobson DO Tissues: B - Gastric mucous membrane A - Gastric mucous membrane Procedures: H Pylori (initial) P53 (initial) KI-67 (add) Surgery Specimen Level IV PHYSICIAN & INSTITUTION [place] [address] SPECIMEN INFORMATION: Tissue Source: A- Gastric ulcer biopsy, B- Gastric body biopsy Clinical Info: Acute blood loss anemia Specimen Number: [id number] A, B CPT code: 50781a3,61347 METHODOLOGY: Deparaffinized sections of prefer/formalin-fixed tissue or PAP/DQ stained slides are incubated with monoclonal/polyclonal antibodies/oligonucleotide probes. Localization is made via biotin free immunoperoxidase method. Appropriate controls are performed and reacted as expected. Results on target cell population are indicated in the following table: RESULTS: ANTIBODY / CLONE RESULT Block A P53 (DO-7) positive, wild type Ki-67 (30-9) positive, low Block B H Pylori (polyclonal) negative These tests were developed and their performance characteristics determined by [facility]. They may not have been cleared or approved by the U.S. Food and Drug Administration. The FDA has determined that such clearance or approval is not necessary. The above immunohistochemical/dualISH markers are ordered and reviewed by the Pathologist. INTERPRETATION: A. Gastric ulcer, biopsy: No evidence of dysplasia. B. Gastric body, biopsy: Negative for Helicobacter pylori organisms. 05/24/2024
== END 2024-05-19 16:06 | disposition home or self-care (01) ==
LOC: EN 14:46 → AC 14:52
PROVIDERS: PCP Internal Medicine; Referring Provider Internal Medicine; Visit Provider Internal Medicine Gastroenterology
PROC: 0DJ08ZZ Inspection of Upper Intestinal Tract, Via Natural or Artificial Opening Endoscopic (ICD-10-PCS; CPT 43235; principal; 2024-05-19 16:25)
DX: K31.A19 Gastric intestinal metaplasia without dysplasia, unspecified site (principal); I50.42 Chronic combined systolic (congestive) and diastolic (congestive) heart failure; I13.0 Hypertensive heart and chronic kidney disease with heart failure and stage 1 through stage 4 chronic kidney disease, or unspecified chronic kidney disease; J43.9 Emphysema, unspecified; I48.20 Chronic atrial fibrillation, unspecified; E66.01 Morbid (severe) obesity due to excess calories; E11.42 Type 2 diabetes mellitus with diabetic polyneuropathy; E11.22 Type 2 diabetes mellitus with diabetic chronic kidney disease; N18.30 Chronic kidney disease, stage 3 unspecified; E78.5 Hyperlipidemia, unspecified; D50.9 Iron deficiency anemia, unspecified; I25.10 Atherosclerotic heart disease of native coronary artery without angina pectoris; Z87.891 Personal history of nicotine dependence; K29.50 Unspecified chronic gastritis without bleeding; Z99.81 Dependence on supplemental oxygen; K21.9 Gastro-esophageal reflux disease without esophagitis; Z95.1 Presence of aortocoronary bypass graft; Z85.118 Personal history of other malignant neoplasm of bronchus and lung; K22.10 Ulcer of esophagus without bleeding; K25.9 Gastric ulcer, unspecified as acute or chronic, without hemorrhage or perforation
CPT/HCPCS: 43239; 88305; 88341; 88342; A4216

== ENCOUNTER → 2024-07-19 | Outpatient (CLI) | payer MEDICARE, OTHER, SELFPAY ==
--- NOTE | 2024-07-19 13:02 | VDLE_ITS ---
Reason For Study: Right leg pain RIGHT LEFT GSV is normal. CFV is compressible, spontaneous, phasic, CFV is compressible, spontaneous, phasic, competent, and demonstrates normal competent and demonstrates normal augmentation. augmentation. FV is compressible, spontaneous, phasic, competent and demonstrates normal augmentation. POP V is compressible, spontaneous, phasic, competent and demonstrates normal augmentation. T/P Trunk is compressible. PTV is compressible. RT PerV is compressible. Nonvascularized structure is noted at the ankle that measures 0.59 x 2.34 cm. Procedure This is a venous duplex using B-mode, color flow and spectral Doppler. Exam performed in department. A preliminary report was called and/or faxed to Dr. Hobson. VL/Venous Duplex US, Unilateral Interpretation Summary Deep veins of the right lower extremity are patent and compressible segmentally . There is no evidence of right lower extremity deep vein thrombosis. The right great sapheno us vein appears patent and compressible segmentally. Nonvascularized structure is noted at the ankle that measures 0.59 x 2.34 cm. Ordering Physician: Fany Hobson Referring Physician: Fany Hobson Performed By: Kaylee Haynes RVT
== END | disposition home or self-care (01) ==
PROVIDERS: PCP Internal Medicine; Referring Provider Internal Medicine; Visit Provider Internal Medicine
DX: M79.661 Pain in right lower leg (principal)
CPT/HCPCS: 93971

== ENCOUNTER → 2024-07-19 | Outpatient (CLI) | payer MEDICARE, OTHER, SELFPAY ==
[2024-07-19 12:11] LABS: PSA,Total - Annual Screen 1.52 ng/mL (0.00-4.00)
== END | disposition home or self-care (01) ==
PROVIDERS: PCP Internal Medicine; Referring Provider Urology; Visit Provider Urology
DX: Z12.5 Encounter for screening for malignant neoplasm of prostate (principal)
CPT/HCPCS: 36415; 84153; G0103

== ENCOUNTER → 2024-08-18 | Outpatient (CLI) | payer MEDICARE, OTHER, SELFPAY | END | disposition home or self-care (01) | LOC: SL 20:30 | PROVIDERS: PCP Internal Medicine; Referring Provider Nurse Practitioner Acute Care; Visit Provider Nurse Practitioner Acute Care | DX: G47.33 Obstructive sleep apnea (adult) (pediatric) (principal) | CPT/HCPCS: 95811 ==

== ENCOUNTER 2024-08-23 08:29 | Day surgery (SDC) | payer MEDICARE, OTHER, SELFPAY ==
--- NOTE | 2024-08-20 10:25 | PAT.ANE_ITS ---
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 When Was Last Pacemaker Check QUESTION #4 FULL TEXT: You/Your Family Experience fever (hyperthermia) with Anesthesia Last Oral Intake Last Oral intake: Last Oral Intake NPO since Meds taken in AM with sips of water? Meds patient instructed to take am of surgery PONV PONV - naval special warfare medic: PONV - naval special warfare medic Female No 08/20/24 10:01 HX of Motion Sickness No 08/20/24 10:01 HX of N/V After Surgery No 08/20/24 10:01 Non-Smoker Yes 08/20/24 10:01 Duration of Surgery greater No 08/20/24 10:01 than 60 minutes Number of Risk Factors 1 08/20/24 10:01 PONV Score Low Risk 08/20/24 10:01 Height & Weight Height & Weight: Anesthesia: Height & Weight Height 5 ft 10 in 08/05/24 08:12 Respiratory Assessment Respiratory Assessment - naval special warfare medic: Respiratory Tract Infection Hx - naval special warfare medic Hx Respiratory Tract Infection No 08/20/24 10:01 STOP Sleep Apnea STOP Sleep Apnea - naval special warfare medic: STOP Sleep Apnea - naval special warfare medic Hx Hypertension Yes 08/20/24 10:01 Hx Sleep Apnea Yes 08/20/24 10:01 CPAP No 08/20/24 10:01 BIPAP Yes 08/20/24 10:01 Do you snore loudly (louder than talking or can be heard Do you often feel tired/ fatigued/ sleepy during daytime? Has anyone observed you stop breathing during sleep? STOP Results Positive 08/20/24 10:01 QUESTION #5 FULL TEXT : Do you snore loudly (louder than talking or can be heard through closed doors)? 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 Specify any problems Hx of Preganancy in last 3 N/A 08/20/24 10:01 Months Nurse Filling Out Transfusion EHMAN 08/20/24 10:01 & Questions: Date: 08/20/24 08/20/24 10:01 Time: 10:05 08/20/24 10:01 Patient unable to answer at this time (ie. confused, unrespo /Reproduction History /Reproductive History - naval special warfare medic: /Reproductive Hx- naval special warfare medic Hx Now Gestational Age (in weeks): EDC: Hx Hx Para Hx Section SAB No 07/23/24 13:46 [facility] Medical History (Updated 08/20/24 @ 10:04 by Clara Shirley) Cardiology follow-up encounter Gastric ulcer History of lung cancer Adrenal mass History of Parkinson's disease History of atrial fibrillation Hx of cancer of lung Pulmonary hypertension Emphysema, unspecified History of echocardiogram History of stress test Hypertension History of atrial fibrillation Hx of fracture of ankle COVID Chronic combined systolic and diastolic CHF (congestive heart failure) Severe pulmonary arterial systolic hypertension Wears glasses Uses wheelchair Walker as ambulation aid Ambulates with cane Arthritis Anemia Migraine headache Injury of head and neck Parkinson's disease Gastric reflux Former smoker BiPAP (biphasic positive airway pressure) dependence COPD (chronic obstructive pulmonary disease) On home oxygen therapy History of pain when walking History of edema Amputated great toe of left foot Amputation of one or more toes Chronic ulcer of left foot with fat layer exposed Hammer toe of left foot Toe osteomyelitis Right ventricular dilation, secondary Right ventricular systolic dysfunction Respiratory failure with hypoxia Diverticular disease Polyp of colon, adenomatous Chronic gastritis Multiple premature ventricular complexes Longstanding persistent atrial fibrillation Hyperlipidemia Acute kidney injury NSTEMI (non-ST elevated myocardial infarction) (12/02/19) Sepsis Gastric AVM Adenocarcinoma of lung, stage 1 GI bleed Iron deficiency anemia due to chronic blood loss Atherosclerosis of coronary artery of [place] heart without angina pectoris Cancer of upper lobe of left lung 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 Benign essential hypertension HEBER (obstructive sleep apnea) Dementia Parkinsons Essential tremor GERD (gastroesophageal reflux disease) Alcohol dependence Home Medications ?Medication ?Instructions ?Recorded ?Last Taken ?Type ferrous sulfate 325 mg (65 mg 65 mg PO DAILY supplemen t 02/01/19 07/14/20 History iron) tablet cholecalciferol (vitamin D3) 125 5,000 unit PO DAILY c holesterol 03/30/19 07/14/20 History mcg (5,000 unit) capsule rosuvastatin 20 mg tablet 20 mg PO DAILY cholesterol 0 03/05/22 04/26/24 09:15 History levothyroxine 50 mcg tablet 50 mcg PO DAILY@0600 Thyro id #0 04/26/24 04/26/24 05:55 Rx tabs peg [id number] 1 1 drp EACH EYE Q1H PRN DRY EYES #0 04/26/24 04/25/24 10:10 Rx %-0.2 %-0.2 % eye drops mL (Artificial Tears ([id number])) sodium chloride 0.65 % nasal spray 2 spray intranasal Q2H PRN dry 04/26/24 04/26/24 09:10 Rx aerosol (Nasal Moisturizing) nasal passages #50 mL acetaminophen 500 mg tablet 1,000 mg (2 x 500 mg) PO Q 6H PRN 05/24/24 Unknown Rx PRN Pain Score 1-10 #0 tabs trazodone 100 mg tablet 100 mg PO QHS 30 days #30 ta bs 05/24/24 Unknown Rx omeprazole 40 mg capsule,delayed 40 mg PO BID #180 cap s 06/24/24 Unknown Rx release sucralfate 1 gram tablet (Carafate) 1 g PO QAC #90 tab s 06/24/24 Unknown Rx albuterol sulfate 2.5 mg/3 mL 2.5 mg (3 mL) inhalation Q4H PRN 06/30/24 Unknown Rx (0.083 %) solution for nebulization Sob &/Or Wheezing #180 mL cyanocobalamin (vitamin B-12) 1,000 mcg IM QMONTH SUPP LEMENT 07/15/24 Unknown History 1,000 mcg/mL injection solution docusate sodium 100 mg capsule 100 mg PO BID 07/15/24 Unknown History fluticasone fur. 100 mcg-umeclid 1 inh inhalation QDAY 07/15/24 Unknown History 62.5 mcg-vilant 25 mcg inhalat.powder (Trelegy Ellipta) folic acid 1 mg tablet 1 mg PO QDAY 07/15/24 Unknow n History gabapentin 600 mg tablet 1,200 mg PO QHS 07/15/24 Unk nown History losartan 100 mg tablet 50 mg PO BID 07/15/24 Unknow n History metoprolol succinate 25 mg 25 mg PO QDAY 07/15/24 Unkn own History tablet,extended release 24 hr multivitamin (Multiple Vitamins 1 tab PO QDAY 07/15/24 Unknown History tablet) oxygen-air delivery systems 07/15/24 Unknown History pramipexole 0.5 mg tablet 0.5 mg PO TID parkinsons Unknown History furosemide 40 mg tablet 40 mg PO BID #180 tabs 08/06 Unknown Rx Allergy/AdvReac Type Severity Reaction Status Date / Time No Known Allergies Allergy Verified 08/20/24 09:56 Family History Sister Alcoholism Cancer Mother Arthritis Father Arthritis Brother Cancer Surgical History History of transurethral resection of prostate Hx of toe surgery SURGICAL REMOVAL LEFT GREAT TOE History of right and left heart catheterization (12/04/16) History of colonoscopy (03/22/20) History of esophagogastroduodenoscopy (03/22/20) History of left heart catheterization (2016) History of coronary artery stent placement (12/23/06) Status post insertion of iliac artery stent (08/04/12) Status post surgical removal of neoplasm of skin History of tonsillectomy and adenoidectomy History of hammer toe correction History of open reduction and internal fixation (ORIF) procedure History of open reduction and internal fixation (ORIF) procedure History of lobectomy of lung History of cardioversion (12/2016) H/O coronary artery bypass surgery (02/14/06) Social History household members: spouse Smoking Status: Former smoker quit date: 11/14/93 how long ago did patient quit smokin years ago second hand exposure: No alcohol intake: current alcohol intake frequency: holidays/special occasions only Alcohol type: wine substance use type: does not use caffeine: Yes Type: coffee Number of servings: 1 what type of physical activity do you participate in: none frequency: does not exercise seatbelt use: always Audit: Pertinent Findings Pertinent Findings EKG Perinent findings: 04/22/2024. Atrial fibrillation 94 bpm pulmonary disease pattern. Incomplete right bundle branch block. Echo (EF%) pertinent findings: 04/22/2024. EF 60% severe pulmonary hypertension. Consult pertinent findings: Cardiology 06/10/2024. Persistent atrial fibrillation. Chronic. Continue metoprolol. Stable chronic systolic and diastolic CHF. Severe pulmonary hypertension. PA pressure 84 mmHg. Will continue oxygen therapy. Continue current medications along with ongoing pulmonary evaluation. History of coronary artery bypass surgery. X 2 02/14/2006 and stent placement in 2006 echo 2019 was negative for ischemia no change Recommendation Anesthesia Recommendation Anesthesia recommendation: OPTIMIZED for anesthesia
[2024-08-23] VITALS (10 sets, daily range): BP systolic 108–129; BP diastolic 55–81; PULSE 67–77; RESP 16–18; TEMP 36.3–36.9; O2SAT 94–99; BMI 38.9
--- NOTE | 2024-08-23 09:02 | PCM.PRE.AN2 ---
ASA Classification* ASA Classification ASA Classification: 3 Assessment & Plan Anesthesia* Anesthesia Assessment Anesthesia Assessment: Discussed sedation and/or anesthesia options, risks, benefits, and alternatives with patient/parents/legal guardian/POA. Questions invited. The patient/parents/legal guardian/POA seems to understand and agrees to proceed with anesthesia plan. Reviewed the physical assessment, medical history, allergy history and patient home medications list prior to surgery/procedure/anesthetic and documented any changes. Performed airway and anesthesia risk assessments. Anesthesia Type Anesthesia Type: MAC Anesthesia Focused Assessment* Temperature: 98.4 F Pulse Rate: 77 Blood Pressure: 129/81 Respiratory Rate: 18 Pulse Ox: 99 Oxygen Flow Rate (L/min): 3 Airway Assessment Mouth opens: >3 cm Mallampati Score: II Focused Labs Anesthesia Preop lab: CBC WBC 8.4 K/mm3 (4.4-11.0) 05/25/24 05:10 05/25/24 RBC 3.24 M/mm3 (4.6-6.2) L 05/25/24 05:10 05/25/24 Hgb 10.2 g/dL (13.0-16.5) L 05/26/24 05:16 05/26/24 Hct 33.2 % (40-54) L 05/26/24 05:16 05/26/24 Plt Count 179 K/mm3 (150-450) 05/25/24 05:10 05/25/24 CHEMISTRY Potassium 3.7 mmol/L (3.5-5.1) 06/02/24 05:15 06/02/24 Sodium 144 mmol/L (136-145) 06/02/24 05:15 06/02/24 Magnesium 2.5 mg/dL (1.6-2.6) 04/25/24 22:43 04/25/24 Phosphorus 2.8 mg/dL (2.5-4.9) 05/31/24 05:30 05/31/24 BUN 17 mg/dL (7-18) 06/02/24 05:15 06/02/24 Creatinine 1.68 mg/dL (0.70-1.30) H 06/02/24 05:15 06/02/24 Glucose 83 mg/dL (74-106) 06/02/24 05:15 06/02/24 POC Glucose 154 mg/dL (74-106) H 03/17/22 11:35 03/17/22 TSH 0.654 uIU/mL (0.358-3.740) 04/23/24 06:28 04/23/24 COAG PT 14.9 SECONDS (11.7-14.9) 03/08/22 14:23 03/08/22 Pre-Assessment Diagnosis/Proposed Procedure Planned Operative Procedure(s): EGD Anesthesia History Anesthesia History - environmental services assistant: Anesthesia History - environmental services assistant Hx Hospitalization Yes: PNEUMONIA 08/20/24 10:01 Any Problems With Anesthesia Yes: SLOW TO AWAKEN 08/20/24 10:01 Cholinesterase deficiency No 08/20/24 10:01 You/Your Family Experience No 08/20/24 10:01 fever (hyperthermia) with Relationship Recent Exposure to Contagious No 08/23/24 08:52 Disease Does patient have nerve No 08/20/24 10:01 stimulator Patient instructed to have device shut off --Does patient have Pacemaker No 08/23/24 08:52 or ICD? When Was Last Pacemaker Check QUESTION #4 FULL TEXT: You/Your Family Experience fever (hyperthermia) with Anesthesia Last Oral Intake Last Oral intake: Last Oral Intake NPO since 23:00 08/23/24 08:52 Meds taken in AM with sips of No 08/23/24 08:52 water? Meds patient instructed to take am of surgery PONV PONV - environmental services assistant: PONV - environmental services assistant Female No 08/20/24 10:01 HX of Motion Sickness No 08/20/24 10:01 HX of N/V After Surgery No 08/20/24 10:01 Non-Smoker Yes 08/20/24 10:01 Duration of Surgery greater No 08/20/24 10:01 than 60 minutes Number of Risk Factors 1 08/20/24 10:01 PONV Score Low Risk 08/20/24 10:01 Height & Weight Height & Weight: Anesthesia: Height & Weight Height 5 ft 10 in 08/23/24 08:52 Weight: 123 kg 08/23/24 08:52 Body Mass Index (BMI) 38.9 08/23/24 08:52 Respiratory Assessment Respiratory Assessment - environmental services assistant: Respiratory Tract Infection Hx - environmental services assistant Hx Respiratory Tract Infection No 08/20/24 10:01 STOP Sleep Apnea STOP Sleep Apnea - environmental services assistant: STOP Sleep Apnea - environmental services assistant Hx Hypertension Yes 08/20/24 10:01 Hx Sleep Apnea Yes 08/20/24 10:01 CPAP No 08/20/24 10:01 BIPAP Yes 08/20/24 10:01 Do you snore loudly (louder than talking or can be heard Do you often feel tired/ fatigued/ sleepy during daytime? Has anyone observed you stop breathing during sleep? STOP Results Positive 08/20/24 10:01 QUESTION #5 FULL TEXT : Do you snore loudly (louder than talking or can be heard through closed doors)? Tobacco Use History Tobacco Use History - environmental services assistant: Tobacco Use History - environmental services assistant Tobacco Use Cigarettes 10/03/20 13:53 Smoking Status Former smoker 08/20/24 10:01 Hx Tobacco Use No 08/20/24 10:01 Years Smoking Packs Smoked per Day Smoking Cessation Date was No - quit smoking greater 08/20/24 10:01 within the last 15 years than 15 years ago Hx Smoking Cessation Date 06/16/90 08/20/24 10:01 Hx Smoking Cessation No 08/20/24 10:01 Counseling Hematologic Medial History Hematologic Hx - environmental services assistant: Hematologic Medical Hx - environmental compliance technician Hx of Blood Transfusion Yes 08/20/24 10:01 Hx of Transfusion in last 3 No 08/20/24 10:01 Months Date of Last Transfusion (if within last 3 months) Ever experience any problems No 08/20/24 10:01 with transfusion(s)? Specify any problems Hx of Preganancy in last 3 N/A 08/20/24 10:01 Months Nurse Filling Out Transfusion [facility] 08/20/24 10:01 & Questions: Date: 08/20/24 08/20/24 10:01 Time: 10:05 08/20/24 10:01 Patient unable to answer at this time (ie. confused, unrespo /Reproduction History /Reproductive History - environmental services assistant: /Reproductive Hx- environmental services assistant Hx Now Gestational Age (in weeks): EDC: Hx Hx Para Hx Section SAB No 07/23/24 13:46 PFSH Medical History History of home oxygen therapy Cardiology follow-up encounter Gastric ulcer History of lung cancer Adrenal mass History of Parkinson's disease History of atrial fibrillation Hx of cancer of lung Pulmonary hypertension Emphysema, unspecified History of echocardiogram History of stress test Hypertension History of atrial fibrillation Hx of fracture of ankle COVID Chronic combined systolic and diastolic CHF (congestive heart failure) Severe pulmonary arterial systolic hypertension Wears glasses Uses wheelchair Walker as ambulation aid Ambulates with cane Arthritis Anemia Migraine headache Injury of head and neck Parkinson's disease Gastric reflux Former smoker BiPAP (biphasic positive airway pressure) dependence COPD (chronic obstructive pulmonary disease) On home oxygen therapy History of pain when walking History of edema Amputated great toe of left foot Amputation of one or more toes Chronic ulcer of left foot with fat layer exposed Hammer toe of left foot Toe osteomyelitis Right ventricular dilation, secondary Right ventricular systolic dysfunction Respiratory failure with hypoxia Diverticular disease Polyp of colon, adenomatous Chronic gastritis Multiple premature ventricular complexes Longstanding persistent atrial fibrillation Hyperlipidemia Acute kidney injury NSTEMI (non-ST elevated myocardial infarction) (12/02/19) Sepsis Gastric AVM Adenocarcinoma of lung, stage 1 GI bleed Iron deficiency anemia due to chronic blood loss Atherosclerosis of coronary artery of [place] heart without angina pectoris Cancer of upper lobe of left lung 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 Benign essential hypertension HEBER (obstructive sleep apnea) Dementia Parkinsons Essential tremor GERD (gastroesophageal reflux disease) Alcohol dependence Home Medications ?Medication ?Instructions ?Recorded ?Last Taken ?Type ferrous sulfate 325 mg (65 mg 65 mg PO DAILY supplement 02/01/19 08/22/24 History iron) tablet cholecalciferol (vitamin D3) 125 5,000 unit PO DAILY cholesterol 03/30/19 07/14/20 History mcg (5,000 unit) capsule rosuvastatin 20 mg tablet 20 mg PO DAILY cholesterol 03/05/22 04/26/24 09:15 History levothyroxine 50 mcg tablet 50 mcg PO DAILY@0600 Thyroid #0 04/26/24 04/26/24 05:55 Rx tabs peg [id number] 1 1 drp EACH EYE Q1H PRN DRY EYES #0 04/26/24 04/25/24 10:10 Rx %-0.2 %-0.2 % eye drops mL (Artificial Tears ([id number])) sodium chloride 0.65 % nasal spray 2 spray intranasal Q2H PRN dry 04/26/24 04/26/24 09:10 Rx aerosol (Nasal Moisturizing) nasal passages #50 mL acetaminophen 500 mg tablet 1,000 mg (2 x 500 mg) PO Q6H PRN 05/24/24 Unknown Rx PRN Pain Score 1-10 #0 tabs trazodone 100 mg tablet 100 mg PO QHS 30 days #30 tabs 05/24/24 Unknown Rx omeprazole 40 mg capsule,delayed 40 mg PO BID #180 caps 06/24/24 Unknown Rx release sucralfate 1 gram tablet (Carafate) 1 g PO QAC #90 tabs 06/24/24 Unknown Rx albuterol sulfate 2.5 mg/3 mL 2.5 mg (3 mL) inhalation Q4H PRN 06/30/24 Unknown Rx (0.083 %) solution for nebulization Sob &/Or Wheezing #180 mL cyanocobalamin (vitamin B-12) 1,000 mcg IM QMONTH SUPPLEMENT 07/15/24 07/26/24 History 1,000 mcg/mL injection solution docusate sodium 100 mg capsule 100 mg PO BID 07/15/24 Unknown History fluticasone fur. 100 mcg-umeclid 1 inh inhalation QDAY 07/15/24 Unknown History 62.5 mcg-vilant 25 mcg inhalat.powder (Trelegy Ellipta) folic acid 1 mg tablet 1 mg PO QDAY 07/15/24 Unknown History gabapentin 600 mg tablet 1,200 mg PO QHS 07/15/24 Unknown History losartan 100 mg tablet 50 mg PO BID 07/15/24 Unknown History metoprolol succinate 25 mg 25 mg PO QDAY 07/15/24 Unknown History tablet,extended release 24 hr multivitamin (Multiple Vitamins 1 tab PO QDAY 07/15/24 Unknown History tablet) oxygen-air delivery systems 07/15/24 Unknown History pramipexole 0.5 mg tablet 0.5 mg PO TID parkinsons 08/05/24 Unknown History furosemide 40 mg tablet 40 mg PO BID #180 tabs 08/06/24 Unknown Rx Allergy/AdvReac Type Severity Reaction Status Date / Time No Known Allergies Allergy Verified 08/23/24 08:50 Family History Sister Alcoholism Cancer Mother Arthritis Father Arthritis Brother Cancer Surgical History History of transurethral resection of prostate Hx of toe surgery SURGICAL REMOVAL LEFT GREAT TOE History of right and left heart catheterization (12/04/16) History of colonoscopy (03/22/20) History of esophagogastroduodenoscopy (03/22/20) History of left heart catheterization (2016) History of coronary artery stent placement (12/23/06) Status post insertion of iliac artery stent (08/04/12) Status post surgical removal of neoplasm of skin History of tonsillectomy and adenoidectomy History of hammer toe correction History of open reduction and internal fixation (ORIF) procedure History of open reduction and internal fixation (ORIF) procedure History of lobectomy of lung History of cardioversion (12/2016) H/O coronary artery bypass surgery (02/14/06) Social History household members: spouse Smoking Status: Former smoker quit date: 11/14/93 how long ago did patient quit smokin years ago second hand exposure: No alcohol intake: current alcohol intake frequency: holidays/special occasions only Alcohol type: wine substance use type: does not use caffeine: Yes Type: coffee Number of servings: 1 what type of physical activity do you participate in: none frequency: does not exercise seatbelt use: always Review of Systems (Anesthesia) ROS Narrative System reviewed and no additional complaints, except as documented.
--- NOTE | 2024-08-23 09:45 | ESO_PTH ---
PATIENT: JV DURHAM Jr. LOC: EN U#:[id number] AGE/SX: 78/M ROOM: RE08/23/[address]: Dr. Gaurav Bennett DO : 1945 BED: DIS: 08/23/2024 SPEC #: [id number] RECD: 08/23/24 11:24 STATUS: ELIZABETH REQ #: [id number] ROXANA: 08/23/24 09:[address]: Gaurav Bennett DEPT: SURGICAL PATHOLOGY RECD BY: Rj Perez ENTERED: 08/23/24 11:24 SP TYPE: GINA REZA DR: Dr. Fany Hobson DO Tissues: Esophagus, NOS Procedures: Surgery Specimen Level IV HEADER OPERATION: EGD with biopsy PRE-OP DIAGNOSIS: Gastric ulcer TISSUE SUBMITTED: Random esophagus biopsy MICROSCOPIC DIAGNOSIS ESOPHAGUS, RANDOM BIOPSY: * Squamous mucosa with mild reactive changes. * Negative for eosinophils. MICROSCOPIC DESCRIPTION Slides are reviewed. GROSS DESCRIPTION Received in fixative is one container labeled with the patient's name and designated Random esophagus biopsy. The specimen consists of two irregular fragments of light leray soft tissue that in aggregate measure 0.7 x 0.3 x 0.1 cm. The specimen is totally submitted in one cassette. MS/mr 08/23/2024 CPT:35132
--- NOTE | 2024-08-23 09:52 | PCM.HP.STD ---
[facility] General Date of Admission: 08/23/24 Date of Service: 08/23/24 Chief Complaint: gastric ulcer and anemia [facility] Narrative JV DURHAM, is a 78 M who presents for repeat upper endoscopy for gastric ulcer surveillance. He is a former smoker with a complicated multiple chronic medical illnesses including severe oxygen dependent COPD, CAD, chronic atrial fibrillation, diabetes, hypertension, morbid obesity, DJD, chronic peripheral neuropathy and possible past history of excessive alcohol consumption.? In March 2017 a chest x-ray prompted a CAT scan of the chest and then a PET CT which showed an abnormal left upper lobe nodule measuring 2.3 cm in maximum diameter highly suspicious for malignancy. ? Due to limited lung reserve the patient went straight to surgery and on 05/16/2017 he underwent left VATS procedure with left upper lobe wedge resection that revealed an adenocarcinoma measuring 1.8 cm in maximum diameter.? Tumor was grade 3, unifocal, resection margin was 0.2 cm but there was visceral pleural invasion.? No lymphovascular invasion was present and no lymph nodes were dissected.? He was previously diagnosed with chronic/recurrent iron deficiency anemia due to chronic GI blood loss and episodic acute.? In September 2017, then an acute upper GI bleed EGD at [facility] [place] showed bleeding AVMs.? Since then he had been on oral iron supplemented with IV to target ferritin over 100 and transferrin saturation over 20% due to concomitant multiple chronic diseases including stage III chronic renal failure.? Upper and lower GI endoscopies [address] Alcala showed a large tubular adenoma of the hepatic flexure that was biopsied.? Gastritis and diverticular disease also identified.? Being a high surgical risk was referred to [facility] for further management of the tubular adenoma, and in September 2020 underwent resection of polyps from the cecum, transverse colon and ascending colon all of which showed tubular adenomas with no dysplasia or malignancy. [facility] Medical History History of home oxygen therapy Cardiology follow-up encounter Gastric ulcer History of lung cancer Adrenal mass History of Parkinson's disease History of atrial fibrillation Hx of cancer of lung Pulmonary hypertension Emphysema, unspecified History of echocardiogram History of stress test Hypertension History of atrial fibrillation Hx of fracture of ankle COVID Chronic combined systolic and diastolic CHF (congestive heart failure) Severe pulmonary arterial systolic hypertension Wears glasses Uses wheelchair Walker as ambulation aid Ambulates with cane Arthritis Anemia Migraine headache Injury of head and neck Parkinson's disease Gastric reflux Former smoker BiPAP (biphasic positive airway pressure) dependence COPD (chronic obstructive pulmonary disease) On home oxygen therapy History of pain when walking History of edema Amputated great toe of left foot Amputation of one or more toes Chronic ulcer of left foot with fat layer exposed Hammer toe of left foot Toe osteomyelitis Right ventricular dilation, secondary Right ventricular systolic dysfunction Respiratory failure with hypoxia Diverticular disease Polyp of colon, adenomatous Chronic gastritis Multiple premature ventricular complexes Longstanding persistent atrial fibrillation Hyperlipidemia Acute kidney injury NSTEMI (non-ST elevated myocardial infarction) (12/02/19) Sepsis Gastric AVM Adenocarcinoma of lung, stage 1 GI bleed Iron deficiency anemia due to chronic blood loss Atherosclerosis of coronary artery of [place] heart without angina pectoris Cancer of upper lobe of left lung 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 Benign essential hypertension HEBER (obstructive sleep apnea) Dementia Parkinsons Essential tremor GERD (gastroesophageal reflux disease) Alcohol dependence Home Medications ?Medication ?Instructions ?Recorded ?Last Taken ?Type ferrous sulfate 325 mg (65 mg 65 mg PO DAILY supplement 02/01/19 08/22/24 History iron) tablet cholecalciferol (vitamin D3) 125 5,000 unit PO DAILY cholesterol 03/30/19 07/14/20 History mcg (5,000 unit) capsule rosuvastatin 20 mg tablet 20 mg PO DAILY cholesterol 03/05/22 04/26/24 09:15 History levothyroxine 50 mcg tablet 50 mcg PO DAILY@0600 Thyroid #0 04/26/24 04/26/24 05:55 Rx tabs peg [id number] 1 1 drp EACH EYE Q1H PRN DRY EYES #0 04/26/24 04/25/24 10:10 Rx %-0.2 %-0.2 % eye drops mL (Artificial Tears ([id number])) sodium chloride 0.65 % nasal spray 2 spray intranasal Q2H PRN dry 04/26/24 04/26/24 09:10 Rx aerosol (Nasal Moisturizing) nasal passages #50 mL acetaminophen 500 mg tablet 1,000 mg (2 x 500 mg) PO Q6H PRN 05/24/24 Unknown Rx PRN Pain Score 1-10 #0 tabs trazodone 100 mg tablet 100 mg PO QHS 30 days #30 tabs 05/24/24 Unknown Rx omeprazole 40 mg capsule,delayed 40 mg PO BID #180 caps 06/24/24 Unknown Rx release sucralfate 1 gram tablet (Carafate) 1 g PO QAC #90 tabs 06/24/24 Unknown Rx albuterol sulfate 2.5 mg/3 mL 2.5 mg (3 mL) inhalation Q4H PRN 06/30/24 Unknown Rx (0.083 %) solution for nebulization Sob &/Or Wheezing #180 mL cyanocobalamin (vitamin B-12) 1,000 mcg IM QMONTH SUPPLEMENT 07/15/24 07/26/24 History 1,000 mcg/mL injection solution docusate sodium 100 mg capsule 100 mg PO BID 07/15/24 Unknown History fluticasone fur. 100 mcg-umeclid 1 inh inhalation QDAY 07/15/24 Unknown History 62.5 mcg-vilant 25 mcg inhalat.powder (Trelegy Ellipta) folic acid 1 mg tablet 1 mg PO QDAY 07/15/24 Unknown History gabapentin 600 mg tablet 1,200 mg PO QHS 07/15/24 Unknown History losartan 100 mg tablet 50 mg PO BID 07/15/24 Unknown History metoprolol succinate 25 mg 25 mg PO QDAY 07/15/24 Unknown History tablet,extended release 24 hr multivitamin (Multiple Vitamins 1 tab PO QDAY 07/15/24 Unknown History tablet) oxygen-air delivery systems 07/15/24 Unknown History pramipexole 0.5 mg tablet 0.5 mg PO TID parkinsons 08/05/24 Unknown History furosemide 40 mg tablet 40 mg PO BID #180 tabs 08/06/24 Unknown Rx Allergy/AdvReac Type Severity Reaction Status Date / Time No Known Allergies Allergy Verified 08/23/24 08:50 Family History Sister Alcoholism Cancer Mother Arthritis Father Arthritis Brother Cancer Surgical History History of transurethral resection of prostate Hx of toe surgery SURGICAL REMOVAL LEFT GREAT TOE History of right and left heart catheterization (12/04/16) History of colonoscopy (03/22/20) History of esophagogastroduodenoscopy (03/22/20) History of left heart catheterization (2016) History of coronary artery stent placement (12/23/06) Status post insertion of iliac artery stent (08/04/12) Status post surgical removal of neoplasm of skin History of tonsillectomy and adenoidectomy History of hammer toe correction History of open reduction and internal fixation (ORIF) procedure History of open reduction and internal fixation (ORIF) procedure History of lobectomy of lung History of cardioversion (12/2016) H/O coronary artery bypass surgery (02/14/06) Social History household members: spouse Smoking Status: Former smoker quit date: 11/14/93 how long ago did patient quit smokin years ago second hand exposure: No alcohol intake: current alcohol intake frequency: holidays/special occasions only Alcohol type: wine substance use type: does not use caffeine: Yes Type: coffee Number of servings: 1 what type of physical activity do you participate in: none frequency: does not exercise seatbelt use: always ROS Constitutional Constitutional: Denies fatigue, fever(s), poor appetite, weight gain or weight loss Gastrointestinal Gastrointestinal: Denies belching, bloating, change in bowel habits, change in stool character, chewing difficulty, coffee ground emesis, constipation, cramping, diarrhea, dyspepsia, dysphagia, early satiety, excessive flatus, fecal incontinence, heartburn, hematemesis, hematochezia, hemorrhoids, loose stools, melena, nausea, odynophagia, rectal bleeding, tenesmus, vomiting or weight changes Vital Signs Vital Signs Vital Signs: 08/23/24 08:52 08/23/24 08:52 08/23/24 09:02 Temperature 98.4 F 98.4 F Temperature Source Temporal Pulse Rate 77 77 Respiratory Rate 18 18 Respiratory Pattern Normal Blood Pressure 129/81 H 129/81 H Blood Pressure Mean 97 Blood Pressure Source Monitor Blood Pressure Position Semi-Fowlers Blood Pressure Location Right Arm Pulse Ox 99 99 Oxygen Delivery Method Nasal Cannula Oxygen Flow Rate (L/min) 3 3 Weight Weight: 271 lb 2.697 oz Body Mass Index (BMI) 38.9 Physical Exam Const alert, oriented x3, no apparent distress and healthy appearing General Appearance: cooperative GI normal to inspection, nondistended, normoactive bowel sounds, soft to palpation, non-tender and non-distended Percussion: normal to percussion Rectal Exam: deferred Assessment & Plan Assessment/Plan (1) Iron deficiency anemia: (2) Gastric ulcer: PLAN: He will undergo surveillance of his gastric ulcer. We will also look for any other signs of anemia. He was explained alternatives, risk and benefits include understanding bleeding, infection, sepsis, perforation, need for charge and . Have an ASA of 3.
--- NOTE | 2024-08-23 10:13 | OP.EGD_ITS ---
Patient Name: Vickey Haeny Procedure Date: 08/23/2024 9:48 AM Date of : 1945 Age: 78 Procedure: Upper GI endoscopy Indications: Peptic ulcer Providers: Gaurav Bennett DO Referring MD: Gaurav Bennett DO Medicines: Monitored Anesthesia Care Patient Profile: This is a 78 year old male. Refer to note in patient chart for documentation of history and physical. Patient has symptoms. Complications: No immediate complications. Procedure: Pre-Anesthesia Assessment: - Prior to the procedure, a History and Physical was performed, and patient medications and allergies were reviewed. The patient is competent. The risks and benefits of the procedure and the sedation options and risks were discussed with the patient. All questions were answered and informed consent was obtained. Patient identification and proposed procedure were verified by the physician in the pre-procedure area. Mental Status Examination: alert and oriented. Airway Examination: normal oropharyngeal airway and neck mobility. Respiratory Examination: clear to auscultation. CV Examination: normal. Prophylactic Antibiotics: The patient does not require prophylactic antibiotics. Prior Anticoagulants: The patient has taken no anticoagulant or antiplatelet agents. ASA Grade Assessment: II - A patient with mild systemic disease. After reviewing the risks and benefits, the patient was deemed in satisfactory condition to undergo the procedure. The anesthesia plan was to use monitored anesthesia care (MAC). Immediately prior to administration of medications, the patient was re-assessed for adequacy to receive sedatives. The heart rate, respiratory rate, oxygen saturations, blood pressure, adequacy of pulmonary ventilation, and response to care were monitored throughout the procedure. The physical status of the patient was re-assessed after the procedure. After obtaining informed consent, the endoscope was passed under direct vision. Throughout the procedure, the patient's blood pressure, pulse, and oxygen saturations were monitored continuously. The Endoscope was introduced through the mouth, and advanced to the second part of duodenum. The upper GI endoscopy was accomplished without difficulty. The patient tolerated the procedure well. Scope In: 10:03:36 AM Scope Out: 10:06:44 AM Total Procedure Duration Time 0 hours 3 minutes 8 seconds Findings: Patchy, white plaques were found in the upper third of the esophagus. Biopsies were obtained from the proximal and distal esophagus with cold forceps for histology of suspected eosinophilic esophagitis. Estimated blood loss was minimal. The entire examined stomach was normal. A small hiatal hernia was present. The second portion of the duodenum was normal. Impression: - Esophageal plaques were found, consistent with candidiasis. - Normal stomach. - Small hiatal hernia. - Normal second portion of the duodenum. - Biopsies were taken with a cold forceps for evaluation of eosinophilic esophagitis. Recommendation: - Discharge patient to home. - Resume previous diet. - Continue present medications. - Await pathology results. -Fluconazole 200 mg once a day x 7 days Procedure Code(s): --- Professional --- 58860, Esophagogastroduodenoscopy, flexible, transoral; with biopsy, single or multiple CPT copyright 2021 [employer]. All rights reserved. The codes documented in this report are preliminary and upon centre[employer] radio operator review may be revised to meet current compliance requirements. Gaurav Bennett DO 08/23/2024 10:12:59 AM This report has been signed electronically. Number of Addenda: 0 Note Initiated On: 08/23/2024 9:48 AM
--- NOTE | 2024-08-23 10:13 | OP.CCLET_ITS ---
08/23/2024 Fany Hobson Re : Upper GI endoscopy procedure for Vickey Hobson This procedure was performed on Friday, August 23, 2024. My impressions and recommendations are as follows: Impressions : - Esophageal plaques were found, consistent with candidiasis. - Normal stomach. - Small hiatal hernia. - Normal second portion of the duodenum. - Biopsies were taken with a cold forceps for evaluation of eosinophilic esophagitis. Recommendations : - Discharge patient to home. - Resume previous diet. - Continue present medications. - Await pathology results. -Fluconazole 200 mg once a day x 7 days My findings are described in the full procedure note, which is enclosed. If I can be of further assistance, please feel free to contact me at . Sincerely, Gaurav Bennett, 08/23/2024 10:12:59 AM This report has been signed electronically.
--- NOTE | 2024-08-23 10:14 | PCM.POST.ANE ---
Anesthesia: Postop Eval I Current Vital Signs Temperature: 97.6 F Pulse Rate: 74 Blood Pressure: 117/58 Respiratory Rate: 18 Pulse Ox: 94 (3L O2) Assessment Airway patent: Yes Spontaneous unlabored respirations: Yes nausea: No Vomiting: No Anesthesia Complication: No Fluid Hydration Crystalloid volume administer (ml): 0 Total IV fluid infused: 0 Progress Note Anesthesia document: Postop Eval 1 completed: Yes
--- NOTE | 2024-08-23 10:46 | POSTOPAN2_ITS ---
Anesthesia Postop Eval I Sum Postop Eval Completion status Anesthesia document: Postop Eval 1 completed: Yes Anesthesia Postop Eval I Summary Anesthesia Postop Eval I Summary: Anesthesia Postop Eval I: Assessment Summary Airway patent Yes 08/23/24 10:14 DEPUTY COUNTY [email or web address] Spontaneous unlabored Yes 08/23/24 10:14 DEPUTY COUNTY CLERK.CSIR respirations Mental status nausea No 08/23/24 10:14 DEPUTY COUNTY CLERK.CSIR Vomiting No 08/23/24 10:14 DEPUTY COUNTY CLERK.CSIR Anesthesia Postop Eval I: Fluid Summary Crystalloid volume administer 0 08/23/24 10:14 DEPUTY COUNTY CLERK.CSIR (ml) Colloids volume administered ( ml) Blood Product volume administered (ml) Total IV fluid infused 0 08/23/24 10:14 DEPUTY COUNTY CLERK.CSIR Anesthesia Postop Eval I: Summary Notes Anesthesia Complication No 08/23/24 10:14 DEPUTY COUNTY CLERK.CSIR Anesthesia Complication Comment: Post-operative progress note Anesthesia: Postop Eval II Evaluation Mental status: Awake Pain Level: 0 nausea: No Vomiting: No
--- NOTE | 2024-08-23 10:46 | PCM.POSTANE2 ---
Anesthesia Postop Eval I Sum Postop Eval Completion status Anesthesia document: Postop Eval 1 completed: Yes Anesthesia Postop Eval I Summary Anesthesia Postop Eval I Summary: Anesthesia Postop Eval I: Assessment Summary Airway patent Yes 08/23/24 10:14 MANAGER SIX [email or web address] Spontaneous unlabored Yes 08/23/24 10:14 MANAGER SIX SIGMA.CSIR respirations Mental status nausea No 08/23/24 10:14 MANAGER SIX SIGMA.CSIR Vomiting No 08/23/24 10:14 MANAGER SIX [email or web address] Anesthesia Postop Eval I: Fluid Summary Crystalloid volume administer 0 08/23/24 10:14 MANAGER SIX SIGMA.CSIR (ml) Colloids volume administered ( ml) Blood Product volume administered (ml) Total IV fluid infused 0 08/23/24 10:14 MANAGER SIX SIGMA.CSIR Anesthesia Postop Eval I: Summary Notes Anesthesia Complication No 08/23/24 10:14 MANAGER SIX SIGMA.CSIR Anesthesia Complication Comment: Post-operative progress note Anesthesia: Postop Eval II Evaluation Mental status: Awake Pain Level: 0 nausea: No Vomiting: No
[2024-08-23] MEDS: 0.9% Saline Lock 10 ML Syringe IV (10:57)
== END 2024-08-23 11:12 | disposition home or self-care (01) ==
LOC: EN 08:32 → AC 08:42
PROVIDERS: PCP Internal Medicine; Referring Provider Internal Medicine; Visit Provider Internal Medicine Gastroenterology
PROC: 0DJ08ZZ Inspection of Upper Intestinal Tract, Via Natural or Artificial Opening Endoscopic (ICD-10-PCS; CPT 43235; principal; 2024-08-23 09:40)
DX: K25.9 Gastric ulcer, unspecified as acute or chronic, without hemorrhage or perforation (principal); G20.A1 Parkinson's disease without dyskinesia, without mention of fluctuations; I50.42 Chronic combined systolic (congestive) and diastolic (congestive) heart failure; I13.0 Hypertensive heart and chronic kidney disease with heart failure and stage 1 through stage 4 chronic kidney disease, or unspecified chronic kidney disease; J43.9 Emphysema, unspecified; I48.20 Chronic atrial fibrillation, unspecified; F10.21 Alcohol dependence, in remission; E66.01 Morbid (severe) obesity due to excess calories; E11.42 Type 2 diabetes mellitus with diabetic polyneuropathy; E11.22 Type 2 diabetes mellitus with diabetic chronic kidney disease; N18.30 Chronic kidney disease, stage 3 unspecified; D50.9 Iron deficiency anemia, unspecified; E78.5 Hyperlipidemia, unspecified; K21.9 Gastro-esophageal reflux disease without esophagitis; I25.10 Atherosclerotic heart disease of native coronary artery without angina pectoris; K44.9 Diaphragmatic hernia without obstruction or gangrene; M19.90 Unspecified osteoarthritis, unspecified site; Z79.51 Long term (current) use of inhaled steroids; Z99.81 Dependence on supplemental oxygen; Z79.899 Other long term (current) drug therapy; Z87.891 Personal history of nicotine dependence; Z87.19 Personal history of other diseases of the digestive system; Z86.0101 Personal history of adenomatous and serrated colon polyps; Z68.38 Body mass index [BMI] 38.0-38.9, adult
CPT/HCPCS: 43239; 88305; J2405

== ENCOUNTER → 2024-10-11 | Outpatient (CLI) | payer MEDICARE, OTHER, SELFPAY ==
--- NOTE | 2024-10-11 08:10 | CT_ITS ---
PROCEDURE: CHEST WITHOUT CONTRAST 10/11/2024 REASON FOR EXAM: NSCLC SURVEILLANCE TECHNIQUE: Chest CT without contrast. Coronal and Sagittal reconstruction series were provided. One or more dose reduction techniques were used (e.g., Automated exposure control, adjustment of the mA and/or kV according to patient size, use of iterative reconstruction technique FINDINGS: Hardware: Status post median sternotomy. Right internal jugular chest port. Lymph nodes: Unremarkable. Heart and Vasculature: No cardiomegaly. Atherosclerotic calcifications of the thoracic aorta. Thoracic aorta and pulmonary arteries have normal contours; noncontrast technique limits evaluation. Coronary Artery Calcifications: Present Lungs and Airways: Calcified left apical scarring. Mild emphysema. 2 cm spiculated noncalcified nodule in the superior segment of the right lower lobe of the lungs on image 56 consistent with known bronchogenic carcinoma. 1.5 cm noncalcified nodule in the periphery of the left lower lobe of the lungs on image 81. Pleura: No pleural effusion. Upper Abdomen: 9 cm oval mass of soft tissue attenuation of the right adrenal gland worrisome for metastasis. Bones: CT/Chest without Contrast IMPRESSION: Coronary artery calcification (CAC) is is present 2 cm right lower lobe pulmonary nodule consistent with known primary bronchogen ic carcinoma. 1.5 cm noncalcified left lower lobe nodule. 9 cm mass of the right adrenal gland worrisome for metastasis. Reading Location: [id number]
== END | disposition home or self-care (01) ==
LOC: CT 08:10
PROVIDERS: PCP Internal Medicine; Referring Provider Nurse Practitioner Family; Visit Provider Nurse Practitioner Family
DX: Z85.118 Personal history of other malignant neoplasm of bronchus and lung (principal)
CPT/HCPCS: 71250

== ENCOUNTER 2024-11-04 08:18 | Outpatient (CLI) | payer MEDICARE, OTHER, SELFPAY ==
[2024-11-04] VITALS (17 sets, daily range): BP systolic 135–196; BP diastolic 56–97; PULSE 60–77; RESP 15–24; TEMP 36.2; O2SAT 96–100; BMI 37.8
[2024-11-04 08:44] LABS: Absolute Lymphocyte Count 0.86 X10^3/uL (0.83-4.51); Basophil# 0.04 X10^3/uL; Basophil% 0.5 % (0-1); Eosinophil# 0.13 X10^3/uL; Eosinophils% 1.5 % (0-5); Hematocrit 36.9 % (40-54); Hemoglobin 11.6 g/dL (13.0-16.5); Lymphocyte # 0.86 X10^3/ul (0.83-4.51); Lymphocyte % 9.8 % (19-41); Mean Corp Hgb Conc 31.4 g/dL (32-36); Mean Corpuscular Hgb 28.5 pg (27.0-32.0); Mean Corpuscular Volume 90.7 fL (80-94); Mean Platelet Vol. 10.1 fl (6.2-12.0); Monocyte# 0.75 X10^3/uL; Monocyte% 8.5 % (0-10); NRBC Flagged by Analyzer 0 % (0-5); Neutrophil # 6.96 X10^3/uL (2.7-7.7); Neutrophil % 79.2 % (47-70); Platelet Count 144 K/mm3 (150-450); Red Blood Count 4.07 M/mm3 (4.6-6.2); White Blood Count 8.8 K/mm3 (4.4-11.0)
[2024-11-04 08:57] LABS: International Normalized Ratio 1.3; Prothrombin Time (Protime)PT. 16.4 SECONDS (11.7-14.9)
[2024-11-04 08:58] LABS: Partial Thromboplast Time 30.6 Seconds (24.1-36.2)
[2024-11-04] MEDS: Midazolam 2 MG/2 ML Syringe IV (10:25)
[2024-11-04] MEDS: 0.9% Normal Saline 250 ML IV.SOLN. (10:25)
[2024-11-04] MEDS: fentaNYL 100 MCG/2 ML Ampul IV (10:27)
--- NOTE | 2024-11-04 10:30 | CT_ITS ---
PROCEDURE: BIOPSY/INJ OR NEEDLE PLACEMENT 11/04/2024 REASON FOR EXAM: RLL NODULE TECHNIQUE: . CT-guided right lung biopsy. The procedure as well as the benefits and possible complications were explained to the patient including infection, bleeding and pneumothorax. Informed consent was obtained. The patient was in the prone position. Conscious sedation was performed. Conscious sedation was started at 10:25 a.m. and terminated at 10:58 a.m.. The patient received 2 mg of Versed and 50 mcg of fentanyl intravenously. The patient was independently monitored by the department nurse. The patient was in the prone position. 4 core biopsies of the posterior lower lobe nodule was performed using of the 20 gauge core biopsy needle system. The patient tolerated the procedure well. One or more dose reduction techniques were used (e.g., Automated exposure control, adjustment of the mA and/or kV according to patient size, use of iterative reconstruction technique). RADIATION DOSE SUMMARY: CTDlvol: 26 mGy DLP: 922.83 mGycm COMPARISON: Prior study dated October 03, 2024. FINDINGS: Successful CT-guided biopsy of the right lower lobe nodule. CT/Biopsy/Inj or Needle Placement IMPRESSION: Successful CT-guided biopsy of the right lower lobe nodule. Reading Location: [place] [id number]
[2024-11-04] MEDS: Lidocaine 2% (20 ml mdv) 20 ML Vial INFILT (10:48)
--- NOTE | 2024-11-04 10:55 | ASPIGT_PTH ---
PATIENT: JV DURHAM Jr. LOC: [place] U#:[id number] AGE/SX: 79/M ROOM: RE11/04/[address]: Dr. Marybeth Millan MD : 1945 BED: DIS: 11/04/2024 SPEC #: [id number] RECD: 11/04/24 11:10 STATUS: [facility] REQ #: [id number] ROXANA: 11/04/24 10:[address]: Marybeth Millan DEPT: SURGICAL PATHOLOGY RECD BY: Rj Perez ENTERED: 11/04/24 11:30 SP TYPE: ASP RAD OTHR DR: Dr. Swati Banerjee DO Tissues: A - Lung, NOS Procedures: FNA Specimen Adequacy Immunohistochemical Stains Special Stain Group II Special Stain Group I Surgery Specimen Level IV AFB Stain (control) GMS Stain (control) Imprint (control) IHC Stain ADDITIONAL HEADER OPERATION: CT guided right lung biopsy PRE-OP DIAGNOSIS: Right lower lung nodule TISSUE SUBMITTED: A- Right lung nodule, 20 gauge x 4 cores MICROSCOPIC DIAGNOSIS A. Right lower lung, nodule, CT-guided core biopsy: * Cores of lung tissue with fibrous scarring, acute and chronic inflammation, and focal epithelial atypia (PRELIMINARY DIAGNOSIS) - see note and Comment. * Note: Further evaluation is pending IHC and special stains, and intradepartmental consultation with thoracic pathology division ([facility]). The findings and final diagnosis will be reported in an addendum. COMMENT The specimen is evaluated at the time of biopsy by Dr. Ramos. Immediate Evaluation = 1. Scant cells. 2. Adequate. Selected slides/images were reviewed in intradepartmental consultation by Dr Merary Duggan (thoracic pathology division, [facility]). MICROSCOPIC DESCRIPTION Slides are reviewed. GROSS DESCRIPTION A. Received in formalin in a container labeled with the patient's name, date of , and RLL lung biopsy are multiple leary-pink, wispy fragments of soft tissue measuring 0.9 x 0.5 x 0.1 cm in aggregate. Submitted in toto in A1. SMB 11-04-2024 CPT:43912,[id number] ADDENDUM ADDENDUM ADDENDUM ADDENDUM ADDENDUM ADDENDUM ADDENDUM ADDENDUM ADDENDUM ADDENDUM ADDENDUM ADDENDUM ADDENDUM ADDENDUM ADDENDUM ADDENDUM ADDENDUM ADDENDUM ADDENDUM ADDENDUM ADDENDUM ADDENDUM 11/12/2024 14:52 ADDENDUM 11/12/2024 14:52 ADDENDUM 11/12/2024 14:52 ADDENDUM 11/12/2024 14:52 ADDENDUM 11/12/2024 14:52 This addendum is to report the findings of the IHC and special stains, as well as the FINAL DIAGNOSIS: A. RIGHT LOWER LUNG, NODULE, CT-GUIDED CORE BIOPSY: * CORES OF LUNG TISSUE WITH FIBROUS SCARRING, ACUTE AND CHRONIC INFLAMMATION, AND FOCAL EPITHELIAL ATYPIA. * NO DIAGNOSTIC MALIGNANT CHANGE IS SEEN IN THESE SECTIONS. * IHC for CMV is negative. * AFB and GMS special stains are negative for acid fast bacilli and fungal organisms, respectively. * IHCS for p40, pancytokeratin, TTF-1, CD45, and CD68 support the histologic impression. The additional stains were also reviewed by Dr Merary Duggan (intradepartmental consultation, [facility]). All matched controls reacted appropriately. These tests were developed and their performance characteristics determined by [facility]. They may not have been cleared or approved by the U.S. Food and Drug Administration. The FDA has determined that such clearance or approval is not necessary.? The above immunohistochemical/dualISH?markers are ordered and reviewed by the Pathologist.
--- NOTE | 2024-11-04 11:05 | RAD_ITS ---
EXAM: Chest AP inspiration expiration views following a right lung biopsy. CLINICAL HISTORY: Status post right lung biopsy. COMPARISON: Prior study dated July 12, 2024. TECHNIQUE: AP inspiration expiration views. FINDINGS: No evidence of pneumothorax on the immediate post right lung biopsy radiographs. There is evidence of focal hemorrhage at the biopsy site. RAD/Chest Insp/Exp 2 View IMPRESSION: No evidence of pneumothorax following the right lung biopsy. Reading Location: [facility]
--- NOTE | 2024-11-04 12:30 | RAD_ITS ---
EXAM: 2 hour post right lung biopsy radiographs. CLINICAL HISTORY: Status post right lung biopsy. COMPARISON: Prior study done earlier today. TECHNIQUE: Inspiration expiration views were obtained. FINDINGS: No evidence of pneumothorax on the 2 hour post right lung biopsy radiographs RAD/Chest Insp/Exp 2 View IMPRESSION: No evidence of pneumothorax on the 2 hour post right lung biopsy radiographs. Reading Location: [place] [address]
== END 2024-11-04 23:59 | disposition home or self-care (01) ==
LOC: CT 08:20
PROVIDERS: Radiology Diagnostic Radiology; PCP Internal Medicine; Referring Provider Internal Medicine Hematology & Oncology; Visit Provider Internal Medicine Hematology & Oncology
DX: R91.1 Solitary pulmonary nodule (principal); J44.9 Chronic obstructive pulmonary disease, unspecified; I48.20 Chronic atrial fibrillation, unspecified; E66.01 Morbid (severe) obesity due to excess calories; E11.42 Type 2 diabetes mellitus with diabetic polyneuropathy; E11.22 Type 2 diabetes mellitus with diabetic chronic kidney disease; N18.30 Chronic kidney disease, stage 3 unspecified; I25.10 Atherosclerotic heart disease of native coronary artery without angina pectoris; I12.9 Hypertensive chronic kidney disease with stage 1 through stage 4 chronic kidney disease, or unspecified chronic kidney disease; D50.0 Iron deficiency anemia secondary to blood loss (chronic); D63.1 Anemia in chronic kidney disease; K11.8 Other diseases of salivary glands; Z87.891 Personal history of nicotine dependence; Z85.118 Personal history of other malignant neoplasm of bronchus and lung
CPT/HCPCS: 32408; 36415; 71046; 77012; 85025; 85610; 85730; 88172; 88305; 88312; 88313; 88341; 88342; 99156; 99157; C2613

== ENCOUNTER → 2024-11-09 | Outpatient (CLI) | payer MEDICARE, OTHER, SELFPAY ==
--- NOTE | 2024-11-09 08:49 | US_ITS ---
PROCEDURE: HEAD/NECK SOFT TISSUE 11/09/2024 REASON FOR EXAM: LESION SEEN ON PET 10-19-24 TECHNIQUE: Ultrasound imaging of Head and Neck . COMPARISON: Prior PET scan dated October 19, 2024. FINDINGS: The right parotid gland measures 5.6 cm 5.1 cm 2.2 cm. There is evidence of a 7 mm x 6 mm x 3 mm benign appearing lymph node adjacent to the right parotid. The left parotid gland measures 5.6 cm x 4.5 cm 2.4 cm. In the inferior aspect of the left parotid, there is a hypoechoic solid lesion measuring 2.2 cm x 1.8 cm x 0.8 cm. This corresponds with the finding on the prior PET scan. Biopsy recommended. US/Head/Neck Soft Tissue IMPRESSION: 2.2 cm x 1.8 cm x 0.8 cm hypoechoic solid nodule within the left parotid gland along its inferior aspect. Biopsy recommended. Reading Location: [place] [address]
== END | disposition home or self-care (01) ==
PROVIDERS: PCP Internal Medicine; Referring Provider Internal Medicine Hematology & Oncology; Visit Provider Internal Medicine Hematology & Oncology
DX: K11.8 Other diseases of salivary glands (principal)
CPT/HCPCS: 76536

== ENCOUNTER → 2024-12-23 | Outpatient (CLI) | payer MEDICARE, OTHER, SELFPAY ==
[2024-12-23] MEDS: 0.9 % NaCl (Sterile) Posiflush 10 mL IV (14:30)
--- NOTE | 2024-12-23 14:35 | CT_ITS ---
PROCEDURE: SOFT TISSUE NECK WITH CONTRAST 12/23/2024 REASON FOR EXAM: MASS ON L SIDE OF NECK/MASS OF SALIVARY GLAND TECHNIQUE: SOFT TISSUE NECK WITH CONTRAST CONTRAST: Isovue 370 VOLUME: 100 mL One or more dose reduction techniques were used (e.g., Automated exposure control, adjustment of the mA and/or kV according to patient size, use of iterative reconstruction technique). RADIATION DOSE SUMMARY: CTDlvol: 19.29 mGy DLP: 694.03 mGycm COMPARISON: Prior sonogram dated November 09, 2024. FINDINGS: Airway: Midline and patent. Salivary glands: Fatty replacement of the parotid glands. Within the inferior aspect of the left parotid gland, there are 3 well-defined nodular densities. The largest measures 1.1 cm. This corresponds to the sonographic findings. Lymph nodes: No significant cervical lymph nodes are seen. Thyroid: Unremarkable. Vasculature: Mild calcified plaque of the carotid arteries. Coronary artery calcification. Prior midline sternotomy and coronary artery bypass surgery. Orbits: Unremarkable at visualized levels. Paranasal sinuses and mastoids: Grossly clear at visualized levels. Lung apices: Mild biapical pleuro-parenchymal scarring. Upper mediastinum: Unremarkable Bones: Multilevel degenerative changes of the spine. Other: A right-sided port a catheter is seen with the tip in the superior vena cava. CT/Soft Tissue Neck WITH Contrast IMPRESSION: Fatty replacement of the parotid glands bilaterally. Within the inferior aspect of the left parotid gland, there are 3 well-defined nodular densities. The largest measures 1.1 cm. Reading Location: [place] [address]
[2024-12-23] MEDS: 0.9% Saline Lock 10 ML Syringe IV (14:40)
== END | disposition home or self-care (01) ==
LOC: CT 14:22
PROVIDERS: PCP Internal Medicine; Referring Provider Otolaryngology; Visit Provider Otolaryngology
DX: R22.1 Localized swelling, mass and lump, neck (principal); K11.8 Other diseases of salivary glands
CPT/HCPCS: 70491; Q9967; A4216

== ENCOUNTER → 2025-01-26 | Outpatient (CLI) | payer MEDICARE, OTHER, SELFPAY ==
--- NOTE | 2025-01-26 12:42 | ECHOD_ITS ---
Reason For Study Reason For Study: PRE OPERATIVE Procedure This was a 2D Doppler, Color Flow transthoracic echocardiogram. Exam performed in department. Left Ventricle Normal LV size. Moderate concentric left ventricular hypertrophy. D shaped septum in systole and diastole. Left ventricular systolic function is normal. The left ventricular ejection fraction is 55 %. No regional wall motion abnormalities noted. Right Ventricle Moderately dilated right ventricle. Moderate global right ventricular systolic dysfunction. Atria The left atrium is mildly enlarged. The right atrium is mildly enlarged. Mitral Valve Normal mitral valve. Mild-Moderate (1-2+) eccentric mitral valve insufficiency. Tricuspid Valve Normal tricuspid valve. Moderately severe (3+) tricuspid valve insufficiency. Pulmonary artery systolic pressure is 80 mmHg. Aortic Valve Trisinus/trileaflet aortic valve. Pulmonic Valve Normal pulmonic valve. Great Vessels Normal aortic root. The pulmonary artery is normal size. Inferior vena cava collapse with respiration. Pericardium/Pleural No pericardial effusion. MMode/2D Measurements & Calculations LVIDd: 4.7 cm IVSd: 1.3 cm Ao root diam: 3.2 cm LVIDs: 3.1 cm LVPWd: 1.5 cm RVDd: 4.9 cm FS: 33.9 % LAV(MOD-bp): 100.1 ml LVAd ap4: 27.7 cm2 LVAd ap2: 30.1 cm2 LAV(MOD-bp) Indexed: 42.1 ml/m2 LVLd ap4: 7.3 cm LVLd ap2: 8.1 cm LAV(MOD-sp2): 109.7 ml EDV(MOD-sp4): 90.9 ml EDV(MOD-sp2): 93.5 ml LAV(MOD-sp4): 92.9 ml EDV(sp4-el): 89.3 ml EDV(sp2-el): 95.0 ml LVAs ap4: 14.1 cm2 LVAs ap2: 17.6 cm2 LVLs ap4: 6.2 cm LVLs ap2: 6.7 cm ESV(MOD-sp4): 27.2 ml ESV(MOD-sp2): 40.0 ml ESV(sp4-el): 27.0 ml ESV(sp2-el): 39.5 ml EF(MOD-sp4): 70.1 % EF(MOD-sp2): 57.2 % EF(sp4-el): 69.8 % SV(MOD-sp4): 63.7 ml SV(MOD-sp2): 53.5 ml SV(sp4-el): 62.3 ml SI(MOD-sp4): 26.8 ml/m2 SI(MOD-sp2): 22.5 ml/m2 LA A4 area: 27.3 cm2 LA dimension(2D): 6.1 cm RA A4 area: 20.7 cm2 Doppler Measurements & Calculations MV E max chris: 113.8 cm/sec Lat Peak E' Chris: 12.2 cm/sec Med Peak E' Chris: 5.6 cm/sec E/E' lat: 9.4 E/E' med: 20.4 Ao V2 max: 161.5 cm/sec LV V1 max: 76.0 cm/sec PA V2 max: 96.8 cm/sec Ao max P.5 mmHg LV V1 max P.3 mmHg PA V2 mean: 55.2 cm/sec Ao V2 mean: 113.8 cm/sec LV V1 mean P.2 mmHg PA V2 VTI: 14.4 cm Ao mean P.0 mmHg LV V1 mean: 50.9 cm/sec Ao V2 VTI: 34.8 cm LV V1 VTI: 14.2 cm AV (velocity ratio): 0.41 TR max chris: 436.8 cm/sec PI dec slope: 195.4 cm/sec2 TR max P.3 mmHg ECHO/Echo Complete Interpretation Summary Normal LV size. Left ventricular systolic function is normal. The left ventricular ejection fraction is 55 %. Moderately dilated right ventricle. Moderate global right ventricular systolic dysfunction. The left atrium is mildly enlarged. Moderately severe (3+) tricuspid valve insufficiency. Moderate concentric left ventricular hypertrophy. D shaped septum in systole and diastole. Pulmonary artery systolic pressure is 80 mmHg. Ordering Physician: GIOVANNA GARCIA Referring Physician: JOHN NGUYEN Performed By: Vanda Christian, MENDEZ, RVT
== END | disposition home or self-care (01) ==
LOC: CVS 12:40
PROVIDERS: PCP Internal Medicine
DX: Z01.818 Encounter for other preprocedural examination (principal); I25.810 Atherosclerosis of coronary artery bypass graft(s) without angina pectoris
CPT/HCPCS: 93306

== ENCOUNTER → 2025-02-08 | Outpatient (CLI) | payer MEDICARE, OTHER, SELFPAY ==
--- NOTE | 2025-02-08 08:03 | CT_ITS ---
PROCEDURE: CHEST WITH CONTRAST 02/08/2025 REASON FOR EXAM: F/U LUNG NODULES NEGATIVE BX 10/2024 TECHNIQUE: CHEST WITH CONTRAST Coronal and Sagittal reconstruction series were provided. CONTRAST: Isovue-300 VOLUME: 98 mL One or more dose reduction techniques were used (e.g., Automated exposure control, adjustment of the mA and/or kV according to patient size, use of iterative reconstruction technique). RADIATION DOSE SUMMARY: CTDlvol: 36.65 mGy DLP: 794.06 mGycm COMPARISON: CT chest without contrast, 10/11/2024. FINDINGS: Lower neck:Thyroid gland is unremarkable. There is no supraclavicular lymphadenopathy. Mediastinum:There is a subcarinal lymph node measuring 2.8 x 1.7 cm. There is a right hilar lymph node measuring 1.9 x 1.6 cm. Heart and Vasculature:The heart is enlarged. There is no pericardial effusion. There is calcific vascular disease of the thoracic aorta and coronary arteries. Status post CABG surgery. Lungs, airways and pleura: There is moderate upper lobe predominant centrilobular emphysema. There has been partial resection of the upper lobe of the left lung. There is a pleural-based mass in the lower lobe of the right lung measuring 5.1 x 5.0 x 3.8 cm. There is a soft tissue nodule in the lower lobe of the left lung measuring 10 x 7 mm. Esophagus:Normal. Upper Abdomen:There is a right adrenal mass measuring 8.7 x 7.5 x 6.5 cm. There is calcific vascular disease of the visualized abdominal aorta. The origins of the SMA and both renal arteries are heavily calcified. Chest wall:There is a chemotherapy port in the right upper chest wall with the tip in the superior vena cava via the right internal jugular vein. There is no axillary lymphadenopathy. There is [id number] multilevel degenerative disc disease of the mid and lower thoracic spine. Status post median sternotomy. CT/Chest WITH Contrast IMPRESSION: 1. Interval increase in the size of the mass in the lower lobe of the right rustam ng, consistent with a primary bronchogenic carcinoma. 2. No significant change in the size of the nodule in the lower lobe of the le ft lung. Suspicious for metastatic disease or a 2nd primary bronchogenic carcinoma. 3. No significant change in the size of the mass in the right adrenal gland, c onsistent with metastatic disease. 4. Mediastinal and right hilar lymphadenopathy, not significantly changed, con sistent with metastatic disease. 5. Other findings as noted. Reading Location: [id number]
[2025-02-08 08:41] LABS: CREATININE FINGERSTICK < 1.0 mg/dL (0.70-1.30); EGFR FINGERSTICK > 60.0000 mL/min (>60)
== END | disposition home or self-care (01) ==
LOC: CT 08:03
PROVIDERS: PCP Internal Medicine; Referring Provider Internal Medicine Hematology & Oncology; Visit Provider Internal Medicine Hematology & Oncology
DX: Z01.812 Encounter for preprocedural laboratory examination (principal)
CPT/HCPCS: 71260; Q9967

== ENCOUNTER → 2025-02-23 | Outpatient (CLI) | payer MEDICARE, OTHER, SELFPAY ==
[2025-02-23] VITALS (19 sets, daily range): BP systolic 108–167; BP diastolic 57–84; PULSE 69–83; RESP 15–28; TEMP 37; O2SAT 97–100; BMI 37.8
[2025-02-23 08:03] LABS: Hematocrit 35.3 % (40-54); Hemoglobin 11.5 g/dL (13.0-16.5); Immature Granulocytes Count 0.060 X10^3/uL (0.0-0.0); Mean Corp Hgb Conc 32.6 g/dL (32-36); Mean Corpuscular Volume 87.6 fL (80-94); Mean Platelet Vol. 9.4 fl (6.2-12.0); NRBC Flagged by Analyzer 0 % (0-5); Platelet Count 200 K/mm3 (150-450); RBC Distribution Width CV 15.9 % (11.6-14.6); RBC Distribution Width SD 50.8 fl (35.1-43.9); Red Blood Count 4.03 M/mm3 (4.6-6.2); White Blood Count 11.4 K/mm3 (4.4-11.0)
[2025-02-23 09:26] LABS: Prothrombin Time (Protime)PT. 15.6 SECONDS (11.7-14.9)
[2025-02-23 09:27] LABS: Partial Thromboplast Time 31.9 Seconds (24.1-36.2)
--- NOTE | 2025-02-23 09:40 | CT_ITS ---
EXAM: CT-guided biopsy of a posterior right lower lobe peripheral mass. CLINICAL HISTORY: Growing hypermetabolic posterior right lower lobe peripheral mass. COMPARISON: Chest CT of 02/08/2025. TECHNIQUE: CT-guided biopsy of a posterior right lower lobe peripheral mass was performed. FINDINGS: Conscious sedation was employed for this procedure, with start time of 1005 hours and stop time of 1020 hours. A total of 1 mg Versed intravenous and 25 mcg fentanyl intravenous were used. Procedure: Following informed consent, and using standard sterile technique, a CT-guided core biopsy of a peripheral posterior right lower lobe mass was performed, with the patient in the prone position. 2% lidocaine local anesthesia was followed by placement of a 10 cm 20 gauge evidanza core biopsy system. A total of 5 samples were then obtained. Estimated blood loss was minimal. No complication was encountered, in the patient left the department in good condition without complaint. CT/Biopsy/Inj or Needle Placement IMPRESSION: Successful CT-guided core biopsy of the posterior peripheral right lower lobe m ass. Pathology results pending. Reading Location: [place] [address]
--- NOTE | 2025-02-23 10:00 | ASPIGT_PTH ---
PATIENT: JV DURHAM Jr. LOC: [place] U#:[id number] AGE/SX: 79/M ROOM: RE02/23/[address]: Dr. Marybeth Millan MD : 1945 BED: DIS: 02/23/2025 SPEC #: [id number] RECD: 02/23/25 10:19 STATUS: ELIZABETH REQ #: [id number] ROXANA: 02/23/25 10:[address]: Marybeth Millan DEPT: SURGICAL PATHOLOGY RECD BY: Rj Perez ENTERED: 02/23/25 11:04 SP TYPE: ASP RAD OTHR DR: Dr. Swati Banerjee DO Tissues: A - Lung, NOS Procedures: FNA Specimen Adequacy Immunohistochemical Stains Special Stain Group II Surgery Specimen Level V Imprint (control) IHC Stain ADDITIONAL HEADER OPERATION: CT guided lung biopsy PRE-OP DIAGNOSIS: Right lung mass TISSUE SUBMITTED: A- Right lung mass - 20 gauge x 5 cores MICROSCOPIC DIAGNOSIS A. Lung, right, CT-guided core biopsy: - Invasive non-small cell carcinoma, consistent with squamous cell carcinoma. - IHC performed: Positive - Pankeratin, CK7, CK5/6, p40 Negative - CK20, TTF1, Napsin A, Chromogranin, Synaptophysin COMMENT The specimen is evaluated at the time of biopsy by Dr. Ramos. Immediate Evaluation = 1. Adequate, malignant. 2. Adequate. Selected slides/images were reviewed in intradepartmental consultation by Dr Merary Duggan (thoracic pathology division, [facility]). MICROSCOPIC DESCRIPTION Slides are reviewed. The immunophenotype supports the histologic impression of squamous cell carcinoma. ?All matched controls reacted appropriately. These tests were developed and their performance characteristics determined by [facility]. They may not have been cleared or approved by the U.S. Food and Drug Administration. The FDA has determined that such clearance or approval is not necessary.? The above immunohistochemical?markers and/or special stains have been reviewed by the Pathologist. GROSS DESCRIPTION A. Received in formalin labeled with the patient's name and date of are 6 leary-pink to white, focally anthracotic, fragmented tissue cores, 0.8 cm to 2.1 cm in length by <0.1 cm in diameter. Touch preparations are made. Entirely submitted in 2 cassettes. [facility] 02/23/2025 CPT:[id number] ADDENDUM ADDENDUM ADDENDUM ADDENDUM ADDENDUM ADDENDUM ADDENDUM ADDENDUM ADDENDUM ADDENDUM ADDENDUM 03/23/2025 08:30 ADDENDUM 03/23/2025 08:30 ADDENDUM 03/23/2025 08:30 ADDENDUM 03/23/2025 08:30 ADDENDUM 03/23/2025 08:30 ADDENDUM 04/21/2025 15:54 This addendum is added to incorporate an outside pathology consultation report. The case was examined at [facility] by Dr. Duggan (#[id number]) and the following diagnosis was rendered. A. Lung, right, CT-guided core biopsy: Adequate (adenocarcinoma). PD-L1 IHC 22C3 pharmDx Result, TPS: 100% Please see complete above mentioned consultation report in EMR This addendum is added to incorporate an outside pathology consultation report. The case was examined at [facility] by Dr. Duggan (#[id number]) and the following diagnosis was rendered. A. Lung, right, CT-guided core biopsy: Adequate. PD-L1 IHC 22C3 pharmDx Result, TPS: 100% AMENDED REASON: Typographical error. Dr. Duggan amended the original report of adequate (adenocarcinoma) to adequate. Please see complete above mentioned consultation report in EMR
[2025-02-23] MEDS: 0.9% Normal Saline (250mL Bag) 250 ML 15 ML IV (10:05)
[2025-02-23] MEDS: Midazolam 2 MG/2 ML Syringe IV (10:05)
[2025-02-23] MEDS: fentaNYL 100 MCG/2 ML Ampul IV (10:07)
[2025-02-23] MEDS: Lidocaine 2% (20 ml mdv) 20 ML Vial INFILT (10:10)
--- NOTE | 2025-02-23 11:18 | RAD_ITS ---
EXAM: Inspiration expiration views following biopsy. CLINICAL HISTORY: Status post 1 hour following right lung biopsy. COMPARISON: None TECHNIQUE: Inspiration expiration views. FINDINGS: A right-sided port a catheter is seen with the tip at the junction of the superior vena cava and right atrium. No evidence of pneumothorax following the right lung biopsy. RAD/Chest Insp/Exp 2 View IMPRESSION: No evidence of pneumothorax following the right lung biopsy. Reading Location: [id number]
--- NOTE | 2025-02-23 13:18 | RAD_ITS ---
EXAM: AP portable upright inspiratory and expiratory chest CLINICAL HISTORY: 3 hour post right lung biopsy COMPARISON: Chest x-ray of 02/23/2025 TECHNIQUE: AP portable upright inspiratory and expiratory chest, 3 hours post right lung biopsy. RAD/Chest Insp/Exp 2 View IMPRESSION: Stable examination. No pneumothorax or pleural effusion is seen. Prior sternotomy and right subclavian central venous catheter with port appear stable. The cardiomediastinal silhouette is unchanged. Reading Location: [place] [id number]
== END | disposition home or self-care (01) ==
PROVIDERS: Radiology Nuclear Radiology; PCP Internal Medicine; Referring Provider Internal Medicine Hematology & Oncology; Visit Provider Internal Medicine Hematology & Oncology
DX: C34.12 Malignant neoplasm of upper lobe, left bronchus or lung (principal); J44.9 Chronic obstructive pulmonary disease, unspecified; I48.20 Chronic atrial fibrillation, unspecified; E66.01 Morbid (severe) obesity due to excess calories; E11.42 Type 2 diabetes mellitus with diabetic polyneuropathy; E11.22 Type 2 diabetes mellitus with diabetic chronic kidney disease; N18.32 Chronic kidney disease, stage 3b; I12.9 Hypertensive chronic kidney disease with stage 1 through stage 4 chronic kidney disease, or unspecified chronic kidney disease; D63.1 Anemia in chronic kidney disease; I25.10 Atherosclerotic heart disease of native coronary artery without angina pectoris; Z99.81 Dependence on supplemental oxygen; Z87.891 Personal history of nicotine dependence
CPT/HCPCS: 32408; 36415; 71046; 77012; 85025; 85610; 85730; 88172; 88307; 88313; 88341; 88342; 99156

== ENCOUNTER → 2025-03-25 | Outpatient (CLI) | payer MEDICARE, OTHER, SELFPAY ==
[2025-03-25 13:15] LABS: Mucous, Urine 0 SEEN /hpf (<or=2+); Red Blood Cells-Urine 0 SEEN /hpf (0-5)
[2025-03-25 13:32] LABS: Color, Urine Yellow (Yellow); Glucose, Dipstick 1000 mg/dl (Normal); Ketone-Dipstick Negative (Negative); Leukocyte Esterase-Dipstick 100 /ul (Negative); Nitrite-Dipstick Negative (Negative); Occult Blood-Urine 10 /ul (Negative); Protein-Dipstick 30 mg/dl (Negative); Specific Gravity, Urine 1.010 (1.002-1.030); Urine Bilirubin Dipstick Negative (Negative)
[2025-03-25 13:45] LABS: Squamous Epithelial Cells - UA 0-5 SEEN /hpf (0-5)
== END | disposition home or self-care (01) ==
LOC: LABSPEC 13:14
PROVIDERS: PCP Internal Medicine; Referring Provider Internal Medicine Hematology & Oncology; Visit Provider Internal Medicine Hematology & Oncology
DX: R30.0 Dysuria (principal)
CPT/HCPCS: 81001

== ENCOUNTER 2025-03-30 15:59 | Inpatient (IN) | payer MEDICARE, OTHER, SELFPAY ==
[2025-03-30] VITALS (13 sets, daily range): BP systolic 83–118; BP diastolic 39–82; PULSE 70–114; RESP 16–25; TEMP 35.9–39.1; O2SAT 94–98; BMI 39.6; BMI 38.9
--- NOTE | 2025-03-30 16:05 | EKG12_ITS ---
Test Reason : Blood Pressure : */* mmHG Vent. Rate : 105 BPM Atrial Rate : * BPM P-R Int : * ms QRS Dur : 98 ms QT Int : 344 ms P-R-T Axes : * -76 40 degrees QTcB Int : 454 ms Atrial fibrillation with rapid ventricular response Left axis deviation Pulmonary disease pattern Incomplete right bundle branch block Abnormal ECG Confirmed by SUNIL CLEARY, TATI ([id number]), supervising editor news reel DAVID FLOWER ([id number]) on 03/31/2025 9:54:28 AM Referred By: Confirmed By: TATI BARBER MD
--- NOTE | 2025-03-30 16:14 | RAD_ITS ---
PROCEDURE: CHEST 1 VIEW (PORTABLE) 03/30/2025 REASON FOR EXAM: COUGH, SOB TECHNIQUE: Frontal view of the chest. COMPARISON: 02/23/2025. FINDINGS: Hilar prominence which may represent vascular congestion. Right chest infusion port with tip terminating in the superior vena cava. Prior sternotomy. The heart appears enlarged which may be due to exaggerated AP technique or cardiomegaly. No acute osseous abnormalities. RAD/Chest 1 View (Portable) IMPRESSION: As above. Reading Location: [id number]
[2025-03-30 17:28] LABS: Hematocrit 29.7 % (40-54); Hemoglobin 9.3 g/dL (13.0-16.5); Immature Granulocytes Count 0.150 X10^3/uL (0.0-0.0); Mean Corp Hgb Conc 31.3 g/dL (32-36); Mean Corpuscular Volume 85.3 fL (80-94); Mean Platelet Vol. 10.1 fl (6.2-12.0); NRBC Flagged by Analyzer 0 % (0-5); POSITIVE DIFFERENTIAL YES; Platelet Count 272 K/mm3 (150-450); RBC Distribution Width CV 16.2 % (11.6-14.6); RBC Distribution Width SD 50.4 fl (35.1-43.9); Red Blood Count 3.48 M/mm3 (4.6-6.2); White Blood Count 18.0 K/mm3 (4.4-11.0)
[2025-03-30 17:29] LABS: Differential Indicated SCAN CRITERIA MET
--- NOTE | 2025-03-30 17:31 | EKG12_ITS ---
Test Reason : TACHY Blood Pressure : */* mmHG Vent. Rate : 137 BPM Atrial Rate : * BPM P-R Int : * ms QRS Dur : 104 ms QT Int : 286 ms P-R-T Axes : * 253 70 degrees QTcB Int : 431 ms Atrial fibrillation with rapid ventricular response Right superior axis deviation Pulmonary disease pattern Nonspecific ST abnormality Abnormal ECG Confirmed by KOLTON DE LA CRUZ ([id number]), editor trade journal DAVID FLOWER ([id number]) on 04/11/2025 6:58:21 AM Referred By: MINOO/EZEKIEL Confirmed By: KOLTON DE LA CRUZ
--- NOTE | 2025-03-30 17:42 | EX.ED.DYSGE1 ---
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 His states that his temperature will range from 99 to as high as 102 degrees, and fluctuate. Has had an occasional cough. He wears 3 L of oxygen for chronic respiratory failure. He denies any other problems, but slept with a heating pad about a week ago and instead of turning it down, had turned it all the way up. He sustained a burn with blistering to his right buttocks. states she has been treating it with triple antibiotic ointment and dressing, but has not noticed any purulent drainage. He states that he has not been feeling well for the past few weeks. No dysuria or hematuria. 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 Regional lymph node metastasis present Metastasis to liver Pain Cancer of lower lobe of right lung Nodule of parotid gland History of home oxygen therapy Cardiology follow-up encounter Gastric ulcer History of lung cancer Adrenal mass History of Parkinson's disease History of atrial fibrillation Hx of cancer of lung Pulmonary hypertension Emphysema, unspecified History of echocardiogram History of stress test Hypertension History of atrial fibrillation Hx of fracture of ankle COVID Chronic combined systolic and diastolic CHF (congestive heart failure) Severe pulmonary arterial systolic hypertension Wears glasses Uses wheelchair Walker as ambulation aid Ambulates with cane Arthritis Anemia Migraine headache Injury of head and neck Parkinson's disease Gastric reflux Former smoker BiPAP (biphasic positive airway pressure) dependence COPD (chronic obstructive pulmonary disease) On home oxygen therapy History of pain when walking History of edema Amputated great toe of left foot Amputation of one or more toes Chronic ulcer of left foot with fat layer exposed Hammer toe of left foot Toe osteomyelitis Right ventricular dilation, secondary Right ventricular systolic dysfunction Respiratory failure with hypoxia Diverticular disease Polyp of colon, adenomatous Chronic gastritis Multiple premature ventricular complexes Longstanding persistent atrial fibrillation Hyperlipidemia Acute kidney injury NSTEMI (non-ST elevated myocardial infarction) (12/02/19) Sepsis Gastric AVM Adenocarcinoma of lung, stage 1 GI bleed Iron deficiency anemia due to chronic blood loss Atherosclerosis of coronary artery of [place] heart without angina pectoris Cancer of upper lobe of left lung 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 Benign essential hypertension HEBER (obstructive sleep apnea) Dementia Parkinsons Essential tremor GERD (gastroesophageal reflux disease) Alcohol dependence Home Medications Medication Instructions Recorded Last Taken Type ferrous sulfate 325 mg (65 mg 65 mg PO DAILY supplement 02/01/19 08/22/24 History iron) tablet cholecalciferol (vitamin D3) 125 5,000 unit PO DAILY cholesterol 03/30/19 07/14/20 History mcg (5,000 unit) capsule rosuvastatin 20 mg tablet 20 mg PO DAILY cholesterol 03/05/22 04/26/24 09:15 History levothyroxine 50 mcg tablet 50 mcg PO DAILY@0600 Thyroid #0 04/26/24 04/26/24 05:55 Rx tabs peg [id number] 1 1 drp EACH EYE Q1H PRN DRY EYES #0 04/26/24 04/25/24 10:10 Rx %-0.2 %-0.2 % eye drops mL (Artificial Tears ([id number])) sodium chloride 0.65 % nasal spray 2 spray intranasal Q2H PRN dry 04/26/24 04/26/24 09:10 Rx aerosol (Nasal Moisturizing) nasal passages #50 mL acetaminophen 500 mg tablet 1,000 mg (2 x 500 mg) PO Q6H PRN 05/24/24 Unknown Rx PRN Pain Score 1-10 #0 tabs omeprazole 40 mg capsule,delayed 40 mg PO BID GERD #180 caps 06/24/24 Unknown Rx release albuterol sulfate 2.5 mg/3 mL 2.5 mg (3 mL) inhalation Q4H PRN 06/30/24 Unknown Rx (0.083 %) solution for nebulization Sob &/Or Wheezing #180 mL cyanocobalamin (vitamin B-12) 1,000 mcg IM QMONTH SUPPLEMENT 07/15/24 07/26/24 History 1,000 mcg/mL injection solution docusate sodium 100 mg capsule 100 mg PO BID constipation 07/15/24 Unknown History folic acid 1 mg tablet 1 mg PO QDAY suppleme 07/15/24 Unknown History gabapentin 600 mg tablet 600 mg PO QHS pain 07/15/24 Unknown History metoprolol succinate 25 mg 25 mg PO QDAY htn 07/15/24 Unknown History tablet,extended release 24 hr multivitamin (Multiple Vitamins 1 tab PO QDAY supplement 07/15/24 Unknown History tablet) oxygen-air delivery systems 07/15/24 Unknown History fluticasone fur. 100 mcg-umeclid 1 inh inhalation QDAY Asthma #60 ea 09/09/24 Unknown Rx 62.5 mcg-vilant 25 mcg inhalat.powder (Trelegy Ellipta) losartan 100 mg tablet 50 mg (1/2 x 100 mg) PO BID heart 10/25/24 Unknown Rx #90 tabs pramipexole 0.5 mg tablet 0.5 mg PO TID parkinsons #270 tabs 11/18/24 Unknown Rx amlodipine 5 mg tablet 5 mg PO DAILY HTN #90 tabs 12/09/24 Unknown Rx dapagliflozin propanediol 10 mg 10 mg PO QDAY DM 12/09/24 Unknown History tablet (Farxiga) ipratropium 0.5 mg-albuterol 3 mg 3 ml inhalation Q4-6H PRN 12/14/24 Unknown History (2.5 mg base)/3 mL nebulization shortness of breath or wheezing soln furosemide 40 mg tablet (Lasix) 40 mg PO QDAY edema #90 tabs 01/25/25 Unknown Rx trazodone 100 mg tablet 50 mg PO QHS Sleep 02/23/25 Unknown History oxycodone 5 mg tablet 5 mg PO Q6H PRN pain 03/29/25 Unknown History Allergy/AdvReac Type Severity Reaction Status Date / Time No Known Allergies Allergy Verified 03/30/25 16:00 Family History Sister Alcoholism Cancer Mother Arthritis Father Arthritis Brother Cancer Surgical History History of transurethral resection of prostate Hx of toe surgery SURGICAL REMOVAL LEFT GREAT TOE History of right and left heart catheterization (12/04/16) History of colonoscopy (03/22/20) History of esophagogastroduodenoscopy (03/22/20) History of left heart catheterization (2016) History of coronary artery stent placement (12/23/06) Status post insertion of iliac artery stent (08/04/12) Status post surgical removal of neoplasm of skin History of tonsillectomy and adenoidectomy History of hammer toe correction History of open reduction and internal fixation (ORIF) procedure History of open reduction and internal fixation (ORIF) procedure History of lobectomy of lung History of cardioversion (12/2016) H/O coronary artery bypass surgery (02/14/06) Social History household members: spouse Smoking Status: Former smoker quit date: 11/14/93 how long ago did patient quit smokin years ago second hand exposure: No alcohol intake: current alcohol intake frequency: holidays/special occasions only Alcohol type: wine substance use type: does not use caffeine: Yes Type: coffee Number of servings: 1 what type of physical activity do you participate in: none frequency: does not exercise seatbelt use: always ROS ROS ED ROS Narrative Review of systems positive for intermittent fever for the last few weeks. Sustained burn to right buttocks approximately 1 week ago. Baseline shortness of breath with occasional productive cough. No increased shortness of breath. No dysuria or hematuria. No nausea or vomiting. No exacerbating or alleviating factors. EXAM Physical Exam Narrative Exam Narrative: Temperature 102.3 °F. Vital signs noted. Cardiovascular examination reveals mild tachycardia. Decreased breath sounds bilaterally. Moving a good amount of air however. Mild tachypnea. Abdomen soft and nontender. Inspection of the right buttocks does show a partial-thickness burn with blistering that is fluid-filled, no surrounding erythema, no fluctuance. Neurological examination nonfocal, nonlateralizing. Moves all extremities. Const Vital Signs: 03/30/25 16:01 03/30/25 16:04 03/30/25 17:04 Temperature 102.3 F H 102.4 F H Temperature Source Oral Oral Pulse Rate 114 H 114 H Respiratory Rate 24 H 24 H Respiratory Effort Respiratory Depth Respiratory Pattern Blood Pressure 100/53 L 100/53 L Blood Pressure Mean 68 68 Pulse Ox 95 95 94 Oxygen Delivery Method Nasal Cannula Nasal Cannula Nasal Cannula Oxygen Flow Rate (L/min) 3 3 3 03/30/25 17:04 03/30/25 17:04 03/30/25 17:31 Temperature 99.9 F H Temperature Source Oral Pulse Rate 93 Respiratory Rate 25 H Respiratory Effort Respiratory Depth Respiratory Pattern Blood Pressure 83/54 L Blood Pressure Mean 63 Pulse Ox 94 96 96 Oxygen Delivery Method Nasal Cannula Nasal Cannula Nasal Cannula Oxygen Flow Rate (L/min) 3 3 03/30/25 17:44 03/30/25 18:00 03/30/25 19:00 Temperature 99.9 F H 98.4 F Temperature Source Oral Oral Pulse Rate 77 78 Respiratory Rate 23 H 20 H Respiratory Effort Short of Breath Labored Respiratory Depth Deep Respiratory Pattern Tachypnea Blood Pressure 97/39 L 89/49 L Blood Pressure Mean 58 62 Pulse Ox 97 97 Oxygen Delivery Method Nasal Cannula Nasal Cannula Oxygen Flow Rate (L/min) 3 3 03/30/25 20:00 03/30/25 21:00 Temperature 98.5 F Temperature Source Oral Pulse Rate 71 93 Respiratory Rate 16 20 H Respiratory Effort Respiratory Depth Respiratory Pattern Blood Pressure 92/60 94/72 Blood Pressure Mean 70 79 Pulse Ox 97 98 Oxygen Delivery Method Nasal Cannula Nasal Cannula Oxygen Flow Rate (L/min) 3 3 Sepsis Attestation Sepsis Alert: Yes Sepsis Attestation: Agree w/Sepsis Date exam was performed: 03/30/25 Time exam was performed: 20:00 Possible Source of Sepsis: Genitourinary Sepsis Organ Dysfunction Criteria Present: SBP decrease of more than 40 mmHg and Creatinine > 2.0 mg/dL Fluid Resuscitation Fluid resuscitation indicated?: Yes Fluid Resuscitation ordered: 30 ml/kg fluid bolus ordered Amount of fluid ordered: 3,750 Sepsis Note Date exam was performed: 03/30/25 Time exam was performed: 21:40 Sepsis Attestation: Sepsis re-evaluation was performed Response to fluids: Fluid responsive hypotension MDM MDM MDM Narrative Medical decision making narrative: Differential diagnosis includes but not limited to pneumonia versus upper respiratory viral infection versus urinary tract infection. Initial laboratory work obtained per protocol. However, given his fever, tachycardia, and review of his WBC count of 18,000, I added sepsis orders. He is not having dysuria so I doubt urinary tract infection as a cause of his fever, but urinalysis is pending. CT of the abdomen will be obtained as well for fever of unknown source. Blood cultures are pending. I also obtained a COVID, influenza, and RSV swab. In review of his laboratory work he has a leukocytosis of 18,000, hemoglobin 9.3 with hematocrit 29.7, platelet count 272. Coagulation studies were negative. Sodium slightly low 131 with potassium slightly elevated 5.2, carbon dioxide 21, BUN of 42 with creatinine 2.2. I feel this is more of an acute on chronic kidney injury. Glucose 141 with anion gap normal at 12. Lactic acid is normal at 1.1. Although high-sensitivity troponin is 59, there are no acute ST changes on his EKG. EKG obtained and interpreted by myself independently as atrial fibrillation at 105 bpm which is essentially rate controlled. He is not having chest pain. I feel that his slight elevation of troponin may be more of a type II elevation given his elevated creatinine and chronic kidney disease. Urinalysis obtained and shows 50-100 white cells. I do feel that this is a source of his fever. After Tylenol, he is not tachycardic. He was ordered sepsis fluids. However I do not feel he has septic shock as his MAP remained above 65. I ordered a CT of the abdomen and pelvis which did show probable adrenal mass and suspected liver mass with kidney atrophy but no acute bowel pathology or fluid collection. Patient was started on Rocephin intravenously. I discussed the patient with Dr. Tirado for admission to the ICU. Critical care time 31 minutes. Disposition is admitted in guarded but stable condition. History & Record Review Discussion w/independent historian: Patient Additional record(s) reviewed:: Prior ED visit and Prior labs (Chronic kidney disease) Lab Data Attestation: I reviewed the patient's lab results. Labs: Laboratory Results - last 24 hr 03/30/25 03/30/25 03/30/25 17:15 17:40 18:45 WBC 18.0 H RBC 3.48 L Hgb 9.3 L Hct 29.7 L MCV 85.3 MCH 26.7 L MCHC 31.3 L RDW Std Deviation 50.4 H RDW Coeff of Iram 16.2 H Plt Count 272 MPV 10.1 Immature Gran % (Auto) 0.800 Neut % (Auto) 85.8 H Lymph % (Auto) 2.1 L [place] % (Auto) 10.3 H Eos % (Auto) 0.7 Baso % (Auto) 0.3 Absolute Neuts (auto) 15.5 H Absolute Lymphs (auto) 0.37 L Nucleated RBC % 0 Differential Comment SCANNED Platelet Estimate ADEQUATE PT 16.2 H INR 1.3 APTT 32.0 Sodium 131 L Potassium 5.2 H Chloride 98 Carbon Dioxide 21.0 Anion Gap 12 BUN 42 H Creatinine 2.20 H Estim Creat Clear Calc 36.17 L Est GFR (MDRD) Non-Af 30 L BUN/Creatinine Ratio 18.9 Glucose 141 H Lactic Acid 1.1 Calcium 8.6 Troponin T High Sens 59 H* Urine Color Yellow Urine Clarity Cloudy Urine pH 6.0 Ur Specific [place] 1.010 Urine Protein 30 H Urine Glucose (UA) Normal Urine Ketones Negative Urine Occult Blood 10 H Urine Nitrite Negative Urine Bilirubin Negative Urine Urobilinogen Normal Ur Leukocyte Esterase 500 H Urine RBC 0 SEEN Urine WBC 50-100 SEEN Ur Squamous Epith Cells 0-5 SEEN Urine Bacteria 0 SEEN Hyaline Casts 0-5 SEEN Fine Granular Casts 0-5 SEEN Urine Mucus 0 SEEN Radiography Diagnostic Testing: Clinical Impression(s) from Imaging Studies Chest X-Ray 03/30/25 16:14 IMPRESSION: As above. Reading Location: [address] Abdomen/Pelvis CT 03/30/25 19:17 IMPRESSION: Large heterogeneous lobular mass measuring 9.0 x 6.6 cm superior to the right kidney with punctate internal calcifications, possibly arising from the right adrenal gland or an adjacent structure. Recommend dedicated adrenal protocol CT or MRI for further characterization. Right lower lobe 15 mm pulmonary density, which may represent infection or a pulmonary nodule. Recommend follow-up chest CT for further evaluation. Possible ill-defined hypodensity within the inferior right hepatic lobe, indeterminate-could represent artifact or a small lesion. Follow-up contrast-enhanced CT or MRI of the liver is recommended. Right greater than left renal atrophy without hydronephrosis. Contracted gallbladder. Moderate atherosclerosis. No evidence of acute bowel pathology or intra-abdominal fluid collection. Reading Location: [address] Management Discussion w/another healthcare provider: Hospitalist (Dr. 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
[2025-03-30 18:23] LABS: Prothrombin Time (Protime)PT. 16.2 SECONDS (11.7-14.9)
[2025-03-30 18:24] LABS: Partial Thromboplast Time 32.0 Seconds (24.1-36.2)
[2025-03-30 18:27] LABS: Differential Comment SCANNED
[2025-03-30] MEDS: 0.9% Normal Saline (1000mL) 1,000 ML 999 ML IV ×4 (18:37→23:59)
[2025-03-30 18:55] LABS: Mucous, Urine 0 SEEN /hpf (<or=2+); Red Blood Cells-Urine 0 SEEN /hpf (0-5)
[2025-03-30 19:02] LABS: Anion Gap 12 (5-15); BUN 42 mg/dL (4-19); BUN/Creat Ratio 18.9 RATIO (10-20); Calcium,Total 8.6 mg/dL (7.6-11.0); Carbon Dioxide 21.0 mmol/L (21.0-32.0); Chloride 98 mmol/L (98-108); Estimated Creatinine Clearance 36.17 ml/min (50-250); Glucose 141 mg/dL (70-99); Potassium 5.2 mmol/L (3.3-5.1)
[2025-03-30 19:05] LABS: Troponin T High Sensitivity 59 ng/L (<=22)
[2025-03-30 19:12] LABS: Color, Urine Yellow (Yellow); Glucose, Dipstick Normal (Normal); Ketone-Dipstick Negative (Negative); Leukocyte Esterase-Dipstick 500 /ul (Negative); Nitrite-Dipstick Negative (Negative); Occult Blood-Urine 10 /ul (Negative); Protein-Dipstick 30 mg/dl (Negative); Specific Gravity, Urine 1.010 (1.002-1.030); Urine Bilirubin Dipstick Negative (Negative)
--- NOTE | 2025-03-30 19:17 | CT_ITS ---
PROCEDURE: ABDOMEN/PELVIS WITHOUT CONT 03/30/2025 REASON FOR EXAM: FEVER TECHNIQUE: Procedure Code: CTABDPEL Modality: CT Procedure: ABDOMEN/PELVIS WITHOUT CONT Noncontrast technique limits evaluation of the abdominal and pelvic viscera. Coronal and Sagittal reconstruction series were provided. One or more dose reduction techniques were used (e.g., Automated exposure control, adjustment of the mA and/or kV according to patient size, use of iterative reconstruction technique). FINDINGS: Partially visualized right lower lobe density measuring 15 mm which may be infectious/inflammatory or represent a nodule. The peripheral soft tissues are unremarkable. Degenerative changes of the spine. Moderate atherosclerosis. No lymphadenopathy. Possible ill-defined hypodensity within the inferior right hepatic lobe which may be due to artifact or an underlying lesion (series 2, image 70 of 188). Contracted gallbladder. Pancreas and spleen are unremarkable. Superior to the right kidney is a 9.0 x 6.6 cm heterogeneous lobular mass with punctate internal calcifications. The right adrenal gland is not well-visualized and this may be arising from the adrenal gland or a mass separate from it. Nbwju-vndtxzg-taoz-left kidney atrophy. No hydroureteronephrosis. The urinary bladder is unremarkable. Normal caliber large and small bowel. CT/Abdomen/Pelvis without Cont IMPRESSION: Large heterogeneous lobular mass measuring 9.0 x 6.6 cm superior to the right k idney with punctate internal calcifications, possibly arising from the right adrenal gland or an adjacent structure. Recomme nd dedicated adrenal protocol CT or MRI for further characterization. Right lower lobe 15 mm pulmonary density, which may represent infection or a pu lmonary nodule. Recommend follow-up chest CT for further evaluation. Possible ill-defined hypodensity within the inferior right hepatic lobe, indete rminate-could represent artifact or a small lesion. Follow-up contrast-enhanced CT or MRI of the liver is recommended. Right greater than left renal atrophy without hydronephrosis. Contracted gallbladder. Moderate atherosclerosis. No evidence of acute bowel pathology or intra-abdominal fluid collection. Reading Location: [address]
[2025-03-30 20:04] LABS: Fine Granular Cast- Urine 0-5 SEEN /lpf (0-5); Squamous Epithelial Cells - UA 0-5 SEEN /hpf (0-5)
[2025-03-30] MEDS: Ceftriaxone 2 GM in 0.9% Normal Saline (50mL MB+) 50 ML IV (20:33)
--- NOTE | 2025-03-30 20:35 | HP.PCM.HOS_ITS ---
HPI - General General Date of Admission: 03/30/25 Date of Service: 03/30/25 Chief Complaint: fever HPI Narrative JV DURHAM, is a 79 M with a PMH as outlined including lung cancer with mets to the liver and soft tissue/shoulder who presentes via the ED on 03/30/2025 with a complaint of fever which had been going on for a few weeks. His temperature had gone as high as 102F and he had an associated occasional cough. He usually wore 3L of oxygen at home. He denied any chest pain, palpitations, dizziness, nausea, vomiting or diarrhea. He had had a burn on his right buttock due to a heating pad a few weeks ago. had been treating it with triple antibiotic cream and applying dressing to it. He admitted to some dysuria but denied any frequency or urgency. Review of systems was otherwise negative. Vitals in the ED at time of review were blood pressure of 92/60, pulse rate of 71, respiratory rate of 16 and temperature of 98.5 Fahrenheit. He was saturating 97% on 3 L of oxygen. CBC showed hemoglobin of 9.3 with WBC of 18 and platelets of 272. INR was 1.3. Chemistry showed sodium of 131 with potassium of 5.2, creatinine of 2.2 and anion gap of 12. Bicarb is 21. Initial troponin is 59. Urinalysis showed yellow cloudy urine with elevated WBC of 5200 and elevated leukocyte esterase. Urine nitrite and bacteria were however negative. Lactic acid was 1.1. CT abdomen and pelvis showed large heterogeneous lobular mass of the right kidney possibly arising from the right adrenal gland on adjacent structure and right lower lobe 15 mm pulmonary density which may represent an infection or pulmonary nodule and possible ill-defined hypodensity within the inferior right hepatic lobe. He has been admitted to be managed for sepsis due to UTI. 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 Regional lymph node metastasis present Metastasis to liver Pain Cancer of lower lobe of right lung Nodule of parotid gland History of home oxygen therapy Cardiology follow-up encounter Gastric ulcer History of lung cancer Adrenal mass History of Parkinson's disease History of atrial fibrillation Hx of cancer of lung Pulmonary hypertension Emphysema, unspecified History of echocardiogram History of stress test Hypertension History of atrial fibrillation Hx of fracture of ankle COVID Chronic combined systolic and diastolic CHF (congestive heart failure) Severe pulmonary arterial systolic hypertension Wears glasses Uses wheelchair Walker as ambulation aid Ambulates with cane Arthritis Anemia Migraine headache Injury of head and neck Parkinson's disease Gastric reflux Former smoker BiPAP (biphasic positive airway pressure) dependence COPD (chronic obstructive pulmonary disease) On home oxygen therapy History of pain when walking History of edema Amputated great toe of left foot Amputation of one or more toes Chronic ulcer of left foot with fat layer exposed Hammer toe of left foot Toe osteomyelitis Right ventricular dilation, secondary Right ventricular systolic dysfunction Respiratory failure with hypoxia Diverticular disease Polyp of colon, adenomatous Chronic gastritis Multiple premature ventricular complexes Longstanding persistent atrial fibrillation Hyperlipidemia Acute kidney injury NSTEMI (non-ST elevated myocardial infarction) (12/02/19) Sepsis Gastric AVM Adenocarcinoma of lung, stage 1 GI bleed Iron deficiency anemia due to chronic blood loss Atherosclerosis of coronary artery of lummi heart without angina pectoris Cancer of upper lobe of left lung 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 Benign essential hypertension HEBER (obstructive sleep apnea) Dementia Parkinsons Essential tremor GERD (gastroesophageal reflux disease) Alcohol dependence Home Medications Medication Instructions Recorded Last Taken Type ferrous sulfate 325 mg (65 mg 65 mg PO DAILY supplemen t 02/01/19 08/22/24 History iron) tablet cholecalciferol (vitamin D3) 125 5,000 unit PO DAILY c holesterol 03/30/19 07/14/20 History mcg (5,000 unit) capsule rosuvastatin 20 mg tablet 20 mg PO DAILY cholesterol 0 03/05/22 04/26/24 09:15 History levothyroxine 50 mcg tablet 50 mcg PO DAILY@0600 Thyro id #0 04/26/24 04/26/24 05:55 Rx tabs peg [id number] 1 1 drp EACH EYE Q1H PRN DRY EYES #0 04/26/24 04/25/24 10:10 Rx %-0.2 %-0.2 % eye drops mL (Artificial Tears ([id number])) sodium chloride 0.65 % nasal spray 2 spray intranasal Q2H PRN dry 04/26/24 04/26/24 09:10 Rx aerosol (Nasal Moisturizing) nasal passages #50 mL acetaminophen 500 mg tablet 1,000 mg (2 x 500 mg) PO Q 6H PRN 05/24/24 Unknown Rx PRN Pain Score 1-10 #0 tabs omeprazole 40 mg capsule,delayed 40 mg PO BID GERD #18 0 caps 06/24/24 Unknown Rx release albuterol sulfate 2.5 mg/3 mL 2.5 mg (3 mL) inhalation Q4H PRN 06/30/24 Unknown Rx (0.083 %) solution for nebulization Sob &/Or Wheezing #180 mL cyanocobalamin (vitamin B-12) 1,000 mcg IM QMONTH SUPP LEMENT 07/15/24 07/26/24 History 1,000 mcg/mL injection solution docusate sodium 100 mg capsule 100 mg PO BID constipat ion 07/15/24 Unknown History folic acid 1 mg tablet 1 mg PO QDAY suppleme Unknown History gabapentin 600 mg tablet 600 mg PO QHS pain 07/15/24 Unknown History metoprolol succinate 25 mg 25 mg PO QDAY htn 07/15/24 Unknown History tablet,extended release 24 hr multivitamin (Multiple Vitamins 1 tab PO QDAY suppleme nt 07/15/24 Unknown History tablet) oxygen-air delivery systems 07/15/24 Unknown History fluticasone fur. 100 mcg-umeclid 1 inh inhalation QDAY Asthma #60 ea 09/09/24 Unknown Rx 62.5 mcg-vilant 25 mcg inhalat.powder (Trelegy Ellipta) losartan 100 mg tablet 50 mg (1/2 x 100 mg) PO BID heart 10/25/24 Unknown Rx #90 tabs pramipexole 0.5 mg tablet 0.5 mg PO TID parkinsons #27 0 tabs 11/18/24 Unknown Rx amlodipine 5 mg tablet 5 mg PO DAILY HTN #90 tabs 0 12/09/24 Unknown Rx dapagliflozin propanediol 10 mg 10 mg PO QDAY DM 12/09 Unknown History tablet (Farxiga) ipratropium 0.5 mg-albuterol 3 mg 3 ml inhalation Q4-6 H PRN 12/14/24 Unknown History (2.5 mg base)/3 mL nebulization shortness of breath or wheezing soln furosemide 40 mg tablet (Lasix) 40 mg PO QDAY edema #9 0 tabs 01/25/25 Unknown Rx trazodone 100 mg tablet 50 mg PO QHS Sleep 02/23/25 Unknown History oxycodone 5 mg tablet 5 mg PO Q6H PRN pain 5 Unknown History Allergy/AdvReac Type Severity Reaction Status Date / Time No Known Allergies Allergy Verified 03/30/25 16:00 Family History Sister Alcoholism Cancer Mother Arthritis Father Arthritis Brother Cancer Surgical History History of transurethral resection of prostate Hx of toe surgery SURGICAL REMOVAL LEFT GREAT TOE History of right and left heart catheterization (12/04/16) History of colonoscopy (03/22/20) History of esophagogastroduodenoscopy (03/22/20) History of left heart catheterization (2016) History of coronary artery stent placement (12/23/06) Status post insertion of iliac artery stent (08/04/12) Status post surgical removal of neoplasm of skin History of tonsillectomy and adenoidectomy History of hammer toe correction History of open reduction and internal fixation (ORIF) procedure History of open reduction and internal fixation (ORIF) procedure History of lobectomy of lung History of cardioversion (12/2016) H/O coronary artery bypass surgery (02/14/06) Social History household members: spouse Smoking Status: Former smoker quit date: 11/14/93 how long ago did patient quit smokin years ago second hand exposure: No alcohol intake: current alcohol intake frequency: holidays/special occasions only Alcohol type: wine substance use type: does not use caffeine: Yes Type: coffee Number of servings: 1 what type of physical activity do you participate in: none frequency: does not exercise seatbelt use: always ROS Constitutional Constitutional: Reports fatigue, fever(s), malaise and weakness; Denies anorexia or chills ENT HEENT: Denies dysphagia or headache(s) Cardiovascular Cardiovascular: Denies chest pain, dyspnea on exertion, lightheadedness, orthopnea, palpitations, rapid heart rate or syncope Respiratory/Chest Respiratory/Chest: Denies cough, dyspnea, shortness of breath at rest, shortness of breath with exertion or wheezing Gastrointestinal Gastrointestinal: Denies abdominal pain, constipation, diarrhea, nausea or vomiting Genitourinary Genitourinary: Denies dysuria or urinary frequency Neurologic Neurologic: Denies confusion, dizziness, focal weakness, headache(s), seizure- like activity or seizures Psychiatric Psychiatric: Denies anxiety Vital Signs Vital Signs Vital Signs: 03/30/25 16:01 03/30/25 16:04 03/30/25 17:04 Temperature 102.3 F H 102.4 F H Temperature Source Oral Oral Pulse Rate 114 H 114 H Respiratory Rate 24 H 24 H Respiratory Effort Respiratory Depth Respiratory Pattern Blood Pressure 100/53 L 100/53 L Blood Pressure Mean 68 68 Pulse Ox 95 95 94 Oxygen Delivery Method Nasal Cannula Nasal Cannula Nasal Cannula Oxygen Flow Rate (L/min) 3 3 3 03/30/25 17:04 03/30/25 17:04 03/30/25 17:31 Temperature 99.9 F H Temperature Source Oral Pulse Rate 93 Respiratory Rate 25 H Respiratory Effort Respiratory Depth Respiratory Pattern Blood Pressure 83/54 L Blood Pressure Mean 63 Pulse Ox 94 96 96 Oxygen Delivery Method Nasal Cannula Nasal Cannula Nasal Cannula Oxygen Flow Rate (L/min) 3 3 03/30/25 17:44 03/30/25 18:00 03/30/25 19:00 Temperature 99.9 F H 98.4 F Temperature Source Oral Oral Pulse Rate 77 78 Respiratory Rate 23 H 20 H Respiratory Effort Short of Breath Labored Respiratory Depth Deep Respiratory Pattern Tachypnea Blood Pressure 97/39 L 89/49 L Blood Pressure Mean 58 62 Pulse Ox 97 97 Oxygen Delivery Method Nasal Cannula Nasal Cannula Oxygen Flow Rate (L/min) 3 3 03/30/25 20:00 Temperature 98.5 F Temperature Source Oral Pulse Rate 71 Respiratory Rate 16 Respiratory Effort Respiratory Depth Respiratory Pattern Blood Pressure 92/60 Blood Pressure Mean 70 Pulse Ox 97 Oxygen Delivery Method Nasal Cannula Oxygen Flow Rate (L/min) 3 Weight Weight: 276 lb 3.827 oz Body Mass Index (BMI) 39.6 Physical Exam Const alert and oriented x3 Constitutional Narrative: frail, weak General Appearance: cooperative HEENT normocephalic and head/scalp atraumatic HEENT Narrative: dry oral mucosal membranes Eyes EOMs intact bilaterally and conjunctivae normal Neck supple Resp Resp Narrative: mildly diminished breath sounds bibasally, no wheezes or crackles. On 3L of oxygen by nasal canula Cardio regular rate, regular rhythm, S1 normal heart sound and S2 normal heart sound GI normal to inspection, nondistended, normoactive bowel sounds, soft to palpation and non-tender Extremity normal to inspection, full ROM and no clubbing, cyanosis or edema Skin Skin Narrative: has intact dressing over superficial burn on right buttock Neuro oriented x3, CN's II-XII intact bilaterally, moves all extremities and no focal motor deficits Sensorium / Orientation: awake and alert Motor Exam: strength 5/5 throughout Psych affect normal Results Lab / Micro Data 03/31/25 05:48 03/30/25 17:15 Labs: Laboratory Results - last 24 hr 03/30/25 17:15: WBC 18.0 H, RBC 3.48 L, Hgb 9.3 L, Hct 29.7 L, MCV 85.3, MCH 26.7 L, MCHC 31.3 L, RDW Std Deviation 50.4 H, RDW Coeff of Iram 16.2 H, Plt Count 272, MPV 10.1, Immature Gran % (Auto) 0.800, Neut % (Auto) 85.8 H, Lymph % (Auto) 2.1 L, [place] % (Auto) 10.3 H, Eos % (Auto) 0.7, Baso % (Auto) 0.3, A bsolute Neuts (auto) 15.5 H, Absolute Lymphs (auto) 0.37 L, Nucleated RBC % 0, Differential Comment SCANNED, Platelet Estimate ADEQUATE, PT 16.2 H, INR 1.3, APTT 32.0, Sodium 131 L, Potassium 5.2 H, Chloride 98, Carbon Dioxide 21.0, Anion Gap 12, BUN 42 H, Creatinine 2.20 H, Estim Creat Clear Calc 36.17 L, Est GFR (MDRD) Non-Af 30 L, BUN/Creatinine Ratio 18.9, Glucose 141 H, Calcium 8.6, T roponin T High Sens 59 H* 03/30/25 17:40: Lactic Acid 1.1 03/30/25 18:45: Urine Color Yellow, Urine Clarity Cloudy, Urine pH 6.0, Ur Specific [place] 1.010, Urine Protein 30 H, Urine Glucose (UA) Normal, Urine Ketones Negative, Urine Occult Blood 10 H, Urine Nitrite Negative, Urine Bilirubin Negative, Urine Urobilinogen Normal, Ur Leukocyte Esterase 500 H, Urine RBC 0 SEEN, Urine WBC 50-100 SEEN, Ur Squamous Epith Cells 0-5 SEEN, Urine Bacteria 0 SEEN, Hyaline Casts 0-5 SEEN, Fine Granular Casts 0-5 SEEN, Urine Mucus 0 SEEN Micro: Microbiology 03/30/25 17:45 Mucosa - Nose SARS-CoV-2, Influenza & RSV (PCR) - Final Imaging Radiology Impression Chest X-Ray 03/30/25 16:14 IMPRESSION: As above. Reading Location: [address] Abdomen/Pelvis CT 03/30/25 19:17 IMPRESSION: Large heterogeneous lobular mass measuring 9.0 x 6.6 cm superior to the right kidney with punctate internal calcifications, possibly arising from the right adrenal gland or an adjacent structure. Recommend dedicated adrenal protocol CT or MRI for further characterization. Right lower lobe 15 mm pulmonary density, which may represent infection or a pulmonary nodule. Recommend follow-up chest CT for further evaluation. Possible ill-defined hypodensity within the inferior right hepatic lobe, indeterminate-could represent artifact or a small lesion. Follow-up contrast-enhanced CT or MRI of the liver is recommended. Right greater than left renal atrophy without hydronephrosis. Contracted gallbladder. Moderate atherosclerosis. No evidence of acute bowel pathology or intra-abdominal fluid collection. Reading Location: [address] Assessment & Plan Assessment/Plan (1) Sepsis: (2) UTI (urinary tract infection): PLAN: Plan #Sepsis due to UTI in a patient with known metastatic lung cancer * Patient admitted with a complaint of fever which have been going on for several days. He has a history of lung cancer with mets to the liver and soft tissue of the shoulder. * Blood pressure running low in the 90s systolic on admission. He is on 3 L of oxygen which is his baseline. * WBCs elevated at 18. Lactic acid was only 1.1. Urinalysis did show elevated leukocyte esterase and WBC but no nitrites or bacteria * Admitted to ICU on account of hypotension. Hydrated with IV fluid normal saline per sepsis protocol. * Started on IV vancomycin and Zosyn. Get blood cultures and urine cultures. * Will hold off on ICU consult for now as patient's blood pressure has improved and I did put him in the ICU as a precaution. He will therefore likely be transferred out of the ICU in the morning. * #Elevated troponin: Initial troponin was 59. This likely due to demand ischemia from the hypotension. Will cycle and monitor #DELVIS on CKD: * Creatinine elevated higher than his baseline and is 2.2. Baseline is usually around 1.4. This is likely due to dehydration. Will hydrate with IV fluids and should improve with hydration #Skin burn * Had a burn by heat pad on his right buttock a few days ago. has been dressing with antibiotic cream. Intact dressing over the area. Will consult wound care. * #Left lung cancer * Has mets to the liver as a soft tissue of the shoulder. * CT of the abdomen and pelvis on admission showed a large heterogeneous lobular mass measuring 9 x 6.6 cm superior to the right kidney with punctate internal calcifications possibly arising from the right adrenal gland or an adjacent structure and a right lower lobe 15 mm pulmonary density which may represent infection or pulmonary nodule and a possible ill-defined hypodensity within the inferior right hepatic lobe. * Chest x-ray showed hilar prominence which may represent vascular congestion and right chest infusion port with tip terminating in the superior vena cava. * Follows with oncology * he has a history of non-small cell right lung cancer which was diagnosed in March 2017 and had VATS procedure in May 2017 with left upper lobe lung lobe wedge resection which showed an adenocarcinoma. * Per oncology is not a candidate for chemotherapy due to suboptimal performance status and significant comorbidities. Has been referred to radiation oncology for palliation of chest wall pain. * #History of tubular adenoma of the hepatic flexure: * He had upper and lower GI endoscopies in 2019 which showed large tubular adenoma of the hepatic flexure which was biopsied and he is s/p resection of polyps from the cecum, transverse colon and ascending colon all of which showed tubular adenomas. * This was in September 2020 at [facility]. #Chronic respiratory failure due to COPD: Not in exacerbation. On 3 L of oxygen which is his baseline. Breathing treatments bronchodilators. #Chronic right adrenal mass: As per the CT above. This has been slow-growing since 2018. Thought to be benign. To follow-up on outpatient basis with PCP #Chronic atrial fibrillation: not anticoagulated, unclear why. On metoprolol #Type 2 diabetes mellitus with neuropathy: hold lantus. ISS. Accuchecks ACHS. #DVT prophylaxis: Lovenox Code staus: full code * Patient and family counseled extensively about different types of CODE STATUS including full code, DNR CCA and DNR CCA. Patient elects to be full code. * Total inxe-ai-[id number] time 17 minutes. Charges/Coding Visit Charges Inpatient E&M: 82544 Init Hosp L3 Procedures Hospitalists Procedures: 44559 Advncd Care Plan 30 Min
[2025-03-30] MEDS: Piperacil/Tazobactam 3.375 GM in 0.9% Normal Saline (50mL MB+) 50 ML IV (22:45)
[2025-03-31] VITALS (20 sets, daily range): BP systolic 87–169; BP diastolic 44–129; PULSE 56–103; RESP 16–29; TEMP 36.4–37.1; O2SAT 94–100; BMI 39.9
[2025-03-31] MEDS: 0.9% Normal Saline (1000mL) 1,000 ML 125 ML IV ×2 (00:56→10:13)
[2025-03-31 06:00] LABS: Hematocrit 29.8 % (40-54); Hemoglobin 8.9 g/dL (13.0-16.5); Immature Granulocytes Count 0.100 X10^3/uL (0.0-0.0); Mean Corp Hgb Conc 29.9 g/dL (32-36); Mean Corpuscular Volume 88.4 fL (80-94); Mean Platelet Vol. 10.1 fl (6.2-12.0); NRBC Flagged by Analyzer 0 % (0-5); POSITIVE DIFFERENTIAL YES; Platelet Count 220 K/mm3 (150-450); RBC Distribution Width CV 16.2 % (11.6-14.6); RBC Distribution Width SD 52.5 fl (35.1-43.9); Red Blood Count 3.37 M/mm3 (4.6-6.2); White Blood Count 14.1 K/mm3 (4.4-11.0)
[2025-03-31 06:06] LABS: Differential Indicated SCAN CRITERIA MET
[2025-03-31] MEDS: Piperacil/Tazobactam 3.375 GM in 0.9% Normal Saline (50mL MB+) 50 ML IV ×2 (06:16→17:28)
[2025-03-31 07:02] LABS: Anion Gap 12 (5-15); BUN 34 mg/dL (4-19); BUN/Creat Ratio 18.1 RATIO (10-20); Calcium,Total 7.6 mg/dL (7.6-11.0); Carbon Dioxide 19.2 mmol/L (21.0-32.0); Chloride 105 mmol/L (98-108); Estimated Creatinine Clearance 42.11 ml/min (50-250); Glucose 109 mg/dL (70-99); Potassium 4.3 mmol/L (3.3-5.1)
[2025-03-31 07:38] LABS: Troponin T High Sens 4 HR 44 ng/L (<=22)
[2025-03-31] MEDS: Budesonide Respules 0.5 MG/2 ML AMPUL.NEB. INHALATION ×2 (09:34→19:21)
--- NOTE | 2025-03-31 09:50 | CASEMGMT ---
Social Work- SW participated in interdisciplinary rounds with pt care team. Pt brought up in rounds that he and his have cancer. SW stayed to offer support and discuss any needs/concerns that pt may have. Pt reports a meeting with community coordinator for estate planning and asked if it was allowable for meeting to take place in the hospital; SW confirmed it is. SW actively listened as pt discussed marriage of 58 years, time served in [place], pt four daughters, and career/travel; pt ending with vocalizing cancer diagnosis questions and statements about "who will first". Pt was [id number] in views of , but conflicted about being apart from . SW empathetically offered supportive listening and support to pt. Pt appreciative of time spent. SW remains available to follow. JAGUAR Nelson
[2025-03-31] MEDS: Metoprolol(XL)Succ 25 MG Tablet PO (10:15)
[2025-03-31] MEDS: Cholecalciferol (Vit D3) 125 MCG CAPSULE (5,000 UNITS) PO (10:15)
--- NOTE | 2025-03-31 11:03 | WOUNDNOTE ---
wound photo: right buttock
--- NOTE | 2025-03-31 12:19 | CASEMGMT ---
RN CM ASSESSMENT RN CM to room to meet with patient for initial transition planning/care coordination assessment. RN BOBBI introduced self and role at [facility]. Pt voices understanding and consents to assessment at this time. Pt sitting up in chair in room in no distress at this time. Pt is A/O at this time and answers all questions appropriately. Care providers, pharmacy, and demographics verified/updated at this time. Strata: 2 PCP: Dr Banerjee Specialists: Dr Batista-cardiology, Dr Graham-urologist, Dr Suresh Storm-pulmonology, Dr Millan-oncologist, Dr Marcial-radiation onc, Dr Johnson-boilermaker apprentice, and a neurologist. Preferred Pharmacy: [facility] Insurance: MCR, Prescription Benefit: Yes LNOK: , Ellen. Daughter, Carmen. 3 other daughters Living Arrangements: Lives w/ in one-story home w/2 steps and grab bar to enter. Pt has caregiver [facility] come 5 days/wk from 9AM-3 PM. They assist w/ADL's. Transportation: , daughter, granddaughter, caregiver DME: has the following DME: walk-in shower that is W/C accessible and has a shower chair, BSC, raised toilet, grab bars, walker., rollator, 2 W/C's, CPAP, nebulizer, pulse ox, functioning glucometer w/supplies, home O2 through [facility]. Pt states he uses it @ 3 L/M continuously. Call to [facility]. Their most recent order on file is from 12/09/24 from ALEJANDRA Parikh, and it is for 1 L/M continuously, bleed-in via PAP. Pt has a concentrator, portable o2 tanks, and a POC. He states family can bring in portability @ dc. HHC/SNF: Pt has been to [facility] and has had [facility] in the past Palliative: Pt is active w/[facility]. They were notified of pt's admission to [facility]. Pt wishes to return home and states has no concerns with going home at time of discharge. He declines wanting HHC at this time. He was made aware to f/u with PCP if he changes his mind after returning home. He voices understanding. CM to follow for home oxygen needs and any further discharge planning/needs. Pt voices no further concerns/needs at this time. Advised pt to ask for CM if any further questions/concerns/needs arise. Voices understanding. PLAN: Eyad PANIAGUAN RN CM
[2025-03-31] MEDS: 0.9% Saline Lock 10 ML Syringe IV ×2 (17:27→21:06)
--- NOTE | 2025-03-31 18:24 | PCM.PN.HOSP ---
Reason for Visit Chief Complaint: fever Subjective Subjective Patient was seen and examined today, he appeared to be stable for transfer out of the ICU to PCU. Patient is alert and has no complaints at this time, he questions when he can go home. Objective Data Objective Data Vital Signs: Vital Signs Temp Pulse Resp BP Pulse Ox O2 Del Method O2 Flow Rate 97.5 F L 65 18 102/50 L 97 Nasal Cannula 2 03/31/25 17:00 03/31/25 17:00 03/31/25 17:00 03/31/25 17:00 03/31/25 17:00 03/31/25 17:00 03/31/25 17:00 Oxygen Flow Rate (L/min) 2 Oxygen Delivery Method Nasal Cannula Weight: 126.6 kg Body Mass Index (BMI) 39.9 Intake & Output: Intake and Output for Last 24 Hours 03/29/25 03/30/25 03/31/25 23:59 23:59 23:59 Intake Total 3050 / 3050 2669.17 / 2669.17 Output Total 2024 / 2024 Balance 3050 / 2550 644.17 / 644.17 Lab / Micro Data 04/01/25 05:22 04/01/25 05:22 Labs: Laboratory Results - last 24 hr 03/30/25 17:15: Differential Comment SCANNED, Platelet Estimate ADEQUATE, PT 16.2 H, INR 1.3, APTT 32.0, Sodium 131 L, Potassium 5.2 H, Chloride 98, Carbon Dioxide 21.0, Anion Gap 12, BUN 42 H, Creatinine 2.20 H, Estim Creat Clear Calc 36.17 L, Est GFR (MDRD) Non-Af 30 L, BUN/Creatinine Ratio 18.9, Glucose 141 H, Calcium 8.6, Troponin T High Sens 59 H* 03/30/25 17:40: Lactic Acid 1.1 03/30/25 18:45: Urine Color Yellow, Urine Clarity Cloudy, Urine pH 6.0, Ur Specific [place] 1.010, Urine Protein 30 H, Urine Glucose (UA) Normal, Urine Ketones Negative, Urine Occult Blood 10 H, Urine Nitrite Negative, Urine Bilirubin Negative, Urine Urobilinogen Normal, Ur Leukocyte Esterase 500 H, Urine RBC 0 SEEN, Urine WBC 50-100 SEEN, Ur Squamous Epith Cells 0-5 SEEN, Urine Bacteria 0 SEEN, Hyaline Casts 0-5 SEEN, Fine Granular Casts 0-5 SEEN, Urine Mucus 0 SEEN 03/30/25 19:15: Troponin T Hi Sens 2 Hr Cancelled 03/31/25 05:48: WBC 14.1 H, RBC 3.37 L, Hgb 8.9 L, Hct 29.8 L, MCV 88.4, MCH 26.4 L, MCHC 29.9 L, RDW Std Deviation 52.5 H, RDW Coeff of Iram 16.2 H, Plt Count 220, MPV 10.1, Immature Gran % (Auto) 0.700, Neut % (Auto) 83.5 H, Lymph % (Auto) 3.8 L, [place] % (Auto) 10.7 H, Eos % (Auto) 1.1, Baso % (Auto) 0.2, Absolute Neuts (auto) 11.8 H, Absolute Lymphs (auto) 0.53 L, Nucleated RBC % 0, Sodium 136, Potassium 4.3, Chloride 105, Carbon Dioxide 19.2 L, Anion Gap 12, BUN 34 H, Creatinine 1.90 H, Estim Creat Clear Calc 42.11 L, Est GFR (MDRD) Non-Af 35 L, BUN/Creatinine Ratio 18.1, Glucose 109 H, Calcium 7.6, Troponin T Hi Sens 4Hr 44 H Micro: Microbiology 03/30/25 17:45 Mucosa - Nose SARS-CoV-2, Influenza & RSV (PCR) - Final Radiography Diagnostic Testing: Radiology Impression Abdomen/Pelvis CT 03/30/25 19:17 IMPRESSION: Large heterogeneous lobular mass measuring 9.0 x 6.6 cm superior to the right kidney with punctate internal calcifications, possibly arising from the right adrenal gland or an adjacent structure. Recommend dedicated adrenal protocol CT or MRI for further characterization. Right lower lobe 15 mm pulmonary density, which may represent infection or a pulmonary nodule. Recommend follow-up chest CT for further evaluation. Possible ill-defined hypodensity within the inferior right hepatic lobe, indeterminate-could represent artifact or a small lesion. Follow-up contrast-enhanced CT or MRI of the liver is recommended. Right greater than left renal atrophy without hydronephrosis. Contracted gallbladder. Moderate atherosclerosis. No evidence of acute bowel pathology or intra-abdominal fluid collection. Reading Location: [id number] Physical Exam Const alert, oriented x3 and no apparent distress General Appearance: cooperative, well kempt and well developed Orientation / Consciousness: awake, oriented to person, oriented to place and oriented to time HEENT normocephalic, head/scalp atraumatic and moist oral mucous membranes Eyes PERRL, EOMs intact bilaterally and conjunctivae normal Neck supple, no JVD, thyroid normal and no carotid bruits General: trachea midline Resp normal respiratory effort, no retractions, no use of accessory muscles and clear to auscultation bilaterally Auscultation: Negative for rales, rhonchi or wheezes Cardio S1 normal heart sound, S2 normal heart sound, no murmurs, no rub and no gallops Cardio Narrative: Heart rate and rhythm is irregular GI normal to inspection, nondistended, normoactive bowel sounds, soft to palpation, non-tender and non-distended Extremity Extremity Narrative: Generalized lower leg edema as noted Skin no rashes or lesions noted General Skin Exam: no breakdown Neuro oriented x3, CN's II-XII intact bilaterally, moves all extremities, no focal motor deficits and no sensory deficits noted Sensorium / Orientation: awake and alert Speech: speech normal Psych affect normal Assessment & Plan Assessment/Plan (1) Sepsis: PLAN: Plan 1. 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-patient is following up with oncology, he will be receiving immunotherapy and possible radiation therapy #6 chronic obstructive pulmonary disease-he is on aerosol treatments with bronchodilators #7 chronic right adrenal mass-no treatment is necessary for the #8 type 2 diabetes-patient is on sliding scale insulin and fingerstick blood sugars #9 chronic atrial fibrillation-patient is on rate control medication but is not on anticoagulation due to multiple medical issues, he is on rate control medication Total clinical time spent by myself addressing the patient's medical issues, reviewing all of his data, and collaborating with patient's care team: 35 minutes Charges/Coding Visit Charges Inpatient E&M: 42773 Subs Hosp L2
[2025-03-31] MEDS: Senna/Docusate Sodium 1 Tablet PO (21:05)
[2025-04-01] VITALS (9 sets, daily range): BP systolic 101–132; BP diastolic 58–63; PULSE 78–105; RESP 16–18; TEMP 36.2–37.1; O2SAT 92–99; BMI 39.8
[2025-04-01 05:52] LABS: Hematocrit 29.9 % (40-54); Hemoglobin 9.0 g/dL (13.0-16.5); Immature Granulocytes Count 0.120 X10^3/uL (0.0-0.0); Mean Corp Hgb Conc 30.1 g/dL (32-36); Mean Corpuscular Volume 88.2 fL (80-94); Mean Platelet Vol. 9.9 fl (6.2-12.0); NRBC Flagged by Analyzer 0 % (0-5); POSITIVE DIFFERENTIAL YES; Platelet Count 257 K/mm3 (150-450); RBC Distribution Width CV 16.3 % (11.6-14.6); RBC Distribution Width SD 52.2 fl (35.1-43.9); Red Blood Count 3.39 M/mm3 (4.6-6.2); White Blood Count 14.7 K/mm3 (4.4-11.0)
[2025-04-01] MEDS: Piperacil/Tazobactam 3.375 GM in 0.9% Normal Saline (50mL MB+) 50 ML IV ×3 (05:59→20:39)
[2025-04-01] MEDS: Budesonide Respules 0.5 MG/2 ML AMPUL.NEB. INHALATION ×2 (06:37→18:05)
[2025-04-01 06:44] LABS: Anion Gap 9 (5-15); BUN 29 mg/dL (4-19); BUN/Creat Ratio 16.3 RATIO (10-20); Calcium,Total 8.4 mg/dL (7.6-11.0); Carbon Dioxide 23.2 mmol/L (21.0-32.0); Chloride 105 mmol/L (98-108); Estimated Creatinine Clearance 45.31 ml/min (50-250); Glucose 91 mg/dL (70-99); Potassium 4.8 mmol/L (3.3-5.1)
[2025-04-01] MEDS: Senna/Docusate Sodium 1 Tablet PO ×2 (08:58→20:40)
[2025-04-01] MEDS: Cholecalciferol (Vit D3) 125 MCG CAPSULE (5,000 UNITS) PO (08:59)
[2025-04-01] MEDS: Metoprolol(XL)Succ 25 MG Tablet PO (09:17)
[2025-04-01] MEDS: FLU VACCINE HIGH DOSE 25-26(65YR UP) 180 MCG/0.5 ML SYRINGE IM (11:13)
--- NOTE | 2025-04-01 13:15 | CASEMGMT ---
Social Work SW met with pt to discuss discharge plan. Pt appreciative of visit and discussing concerns with health and home situation. Pt states he and both have cancer and have been having a decline in health. Pt talking about meeting with mergers and acquisitions attorney next week to get affairs in order and funerals planned. SW offered emotional support. Pt discussing discharge plan and stating it is more difficult for pt and to be home alone. SW discussed SNF with pt, both short term and ad terminal makeup operator and pt states he and his would want to go together when it is time for this. Pt denies need to go to SNF from hospital. Pt is requesting therapy in the home. SW offered to provide list of home health providers, however pt states he previously used [facility] and would like to use this agency again. SW offered therapy, retirement and a delinquency prevention social worker and pt is agreeable to this. Pt states [facility] and is working on getting this expanded. SW spoke with regarding having a family member stay with him over the weekend for safety and pt states he is hopeful zac Morales can do this and also start staying with pt during the evenings and overnight. Pt is looking into getting Carmen connected with the [facility] as a paid provider. SW provided pt with information regarding [facility]. CELY fire assistant to make home health referral. JAGUAR Shankar
--- NOTE | 2025-04-01 13:25 | CASEMGMT ---
Discharge Planning A list of HH providers including quality and resource use data and consistent with the patient's preferred geographic region, medical needs, and insurance network was created in [facility] Guide. This list was provided to the pt. Pt requested SW make referral to [facility]. Pt has to take a look at the list in the event [facility] unable to accept. Maggie Gregory, Discharge Planning Asst.
--- NOTE | 2025-04-01 13:33 | CASEMGMT ---
Addendum entered by Maggie Gregory 04/01/25 13:51: Pt updated of acceptance and SOC date. Maggie Gregory DC Planning Asst. Addendum entered by Maggie Gregory 04/01/25 13:38: [facility] has accepted. SOC 04/04/25. SW updated. Maggie Gregory DC Planning Asst. Original Note: Discharge Planning referral made via phone to [facility] (Richelle). SW updated. Awaiting response. Maggie Gregory DC Planning Asst.
--- NOTE | 2025-04-01 14:05 | CASEMGMT ---
Addendum entered by Romario Wallace 04/01/25 14:43: TC received from pt's daughter (Ginny) inquiring about pt's DC plan. Plan of care update provided at this time. Daughter requests this RN CM to call the pt's CM through the [place] (Murali) @ [phone] ext [phone]. Updated Murali on pt's DC plan and the CM is requesting H&P and current med list to be faxed to [phone] to see if the [facility] can [facility] more nursing home director for the pt. Documents faxed to the [place] at this time. Original Note: See SW note as the pt is wanting HHC and the pt was able to get set up with [facility] for SOC on Friday. Pt's home oxygen is through [facility] at 1L/M. Hospitalist states that DC is anticipated for tomorrow. Green sheet placed on the pt's chart regarding HH and updated O2 needs to help facilitate weekend DC. DC PLAN: Home with skilled HHC (SN, PT, OT, and SW), possible updated O2 rx to [facility], and [facility] through [facility] who is aware of pt's admission.
--- NOTE | 2025-04-01 19:23 | PCM.PN.HOSP ---
Reason for Visit Chief Complaint: fever Subjective Subjective Patient was seen and examined today, I talked with his oncologist regarding his abnormal abdominal CT findings, it appears that the patient has had a chronic adrenal mass for many years, it is known that he has metastatic lung cancer to the liver, the plan is for the patient to receive immunotherapy and radiation treatment to bone mets. Home nursing care will be instituted when the patient is discharged. Objective Data Objective Data Vital Signs: Vital Signs Temp Pulse Resp BP Pulse Ox O2 Del Method O2 Flow Rate 98.2 F 86 18 132/60 H 92 Nasal Cannula 2 04/01/25 14:00 04/01/25 14:00 04/01/25 14:00 04/01/25 14:00 04/01/25 14:00 04/01/25 14:57 04/01/25 14:57 Oxygen Flow Rate (L/min) 2 Oxygen Delivery Method Nasal Cannula Weight: 125.8 kg Body Mass Index (BMI) 39.8 Intake & Output: Intake and Output for Last 24 Hours 03/30/25 03/31/25 04/01/25 23:59 23:59 23:59 Intake Total 3050 / 3050 3736.67 / 3736.67 1220 / 1220 Output Total 2850 / 2850 1475 / 1475 Balance 3050 / 2550 886.67 / 886.67 -255 / -255 Lab / Micro Data 04/01/25 05:22 04/01/25 05:22 Labs: Laboratory Results - last 24 hr 04/01/25 05:22: WBC 14.7 H, RBC 3.39 L, Hgb 9.0 L, Hct 29.9 L, MCV 88.2, MCH 26.5 L, MCHC 30.1 L, RDW Std Deviation 52.2 H, RDW Coeff of Iram 16.3 H, Plt Count 257, MPV 9.9, Immature Gran % (Auto) 0.800, Neut % (Auto) 83.8 H, Lymph % (Auto) 3.9 L, [place] % (Auto) 10.1 H, Eos % (Auto) 1.2, Baso % (Auto) 0.2, Absolute Neuts (auto) 12.3 H, Absolute Lymphs (auto) 0.58 L, Nucleated RBC % 0, Sodium 137, Potassium 4.8, Chloride 105, Carbon Dioxide 23.2, Anion Gap 9, BUN 29 H, Creatinine 1.76 H, Estim Creat Clear Calc 45.31 L, Est GFR (MDRD) Non-Af 39 L, BUN/Creatinine Ratio 16.3, Glucose 91, Calcium 8.4 Micro: Microbiology 03/30/25 18:45 Urine, Clean Catch Urine Culture - Final Gram negative danielle 03/30/25 17:45 Mucosa - Nose SARS-CoV-2, Influenza & RSV (PCR) - Final Physical Exam Narrative alert, oriented x3 and no apparent distress General Appearance: cooperative, well kempt and well developed Orientation / Consciousness: awake, oriented to person, oriented to place and oriented to time HEENT normocephalic, head/scalp atraumatic and moist oral mucous membranes Eyes PERRL, EOMs intact bilaterally and conjunctivae normal Neck supple, no JVD, thyroid normal and no carotid bruits General: trachea midline Resp normal respiratory effort, no retractions, no use of accessory muscles and clear to auscultation bilaterally Auscultation: Negative for rales, rhonchi or wheezes Cardio S1 normal heart sound, S2 normal heart sound, no murmurs, no rub and no gallops Cardio Narrative: Heart rate and rhythm is irregular GI normal to inspection, nondistended, normoactive bowel sounds, soft to palpation, non-tender and non-distended Extremity Extremity Narrative: Generalized lower leg edema as noted Skin no rashes or lesions noted General Skin Exam: no breakdown Neuro oriented x3, CN's II-XII intact bilaterally, moves all extremities, no focal motor deficits and no sensory deficits noted Sensorium / Orientation: awake and alert Speech: speech normal Psych affect normal Assessment & Plan Assessment/Plan (1) Acute kidney injury superimposed on CKD: (2) Sepsis: PLAN: Plan 1. Sepsis secondary to urinary tract infection-patient will remain on IV antibiotics at this time, urine culture grew out Proteus which is sensitive to many antibiotics. 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-patient is following up with oncology, he will be receiving immunotherapy and possible radiation therapy #6 chronic obstructive pulmonary disease-he is on aerosol treatments with bronchodilators #7 chronic right adrenal mass-no treatment is necessary for the #8 type 2 diabetes-patient is on sliding scale insulin and fingerstick blood sugars #9 chronic atrial fibrillation-patient is on rate control medication but is not on anticoagulation due to multiple medical issues, he is on rate control medication Total clinical time spent by myself addressing the patient's medical issues, reviewing all of his data, and collaborating with patient's care team: 35 minutes Charges/Coding Visit Charges Inpatient E&M: 18609 Subs Hosp L2
[2025-04-02] VITALS (10 sets, daily range): BP systolic 107–124; BP diastolic 50–99; PULSE 70–82; RESP 17–18; TEMP 36.4–37; O2SAT 87–99; BMI 39.5
[2025-04-02] MEDS: Piperacil/Tazobactam 3.375 GM in 0.9% Normal Saline (50mL MB+) 50 ML IV (05:08)
[2025-04-02] MEDS: Budesonide Respules 0.5 MG/2 ML AMPUL.NEB. INHALATION ×2 (06:32→20:26)
[2025-04-02] MEDS: Senna/Docusate Sodium 1 Tablet PO ×2 (10:20→21:11)
[2025-04-02] MEDS: Cholecalciferol (Vit D3) 125 MCG CAPSULE (5,000 UNITS) PO (10:20)
[2025-04-02] MEDS: Metoprolol(XL)Succ 25 MG Tablet PO (10:21)
--- NOTE | 2025-04-02 13:03 | DCINST_ITS ---
Discharge Instructions DC O2, CPAP, BIPAP needs Home O2 Discharge instructions: Yes Type of respiratory needs?: Oxygen Oxygen frequency: At rest and With Ambulation Oxygen liters per minute during Ambulation: 4 L Dressing / Incision Discharge Activity: Return to Normal Activity Weight Bearing Status: Full weight bearing Follow Up Care Test Results: Test results from this visit will be discussed in further detail at your follow- up appointment, if applicable. Discharge Plan Admission Admit Date/Time: 03/30/25 21:03 Primary Reason for Your Visit: Sepsis secondary to urinary tract infection Attending Provider: Leo Velasquez Primary Care Provider: Swati Banerjee Consulting Providers: May Tirado Instructions Additional Instructions / Restrictions: Start the levofloxacin on 04/04/2025 Discharge Orders/Prescriptions Prescriptions: New levofloxacin 250 mg tablet 250 mg PO DAILY Qty: 5 0RF Rx Instructions: Start on 04/03/2025 Continued cholecalciferol (vitamin D3) 5,000 unit capsule 5,000 unit PO DAILY rosuvastatin 20 mg tablet 20 mg PO DAILY gabapentin 600 mg tablet 600 mg PO QHS cyanocobalamin (vitamin B-12) 1,000 mcg/mL solution 1,000 mcg IM QMONTH docusate sodium 100 mg capsule 100 mg PO BID folic acid 1 mg tablet 1 mg PO QDAY multivitamin [Multiple Vitamins] Tablet 1 tab PO QDAY metoprolol succinate 25 mg tablet extended release 24 hr 25 mg PO QDAY dapagliflozin propanediol [Farxiga] 10 mg tablet 10 mg PO QDAY amlodipine 5 mg tablet 5 mg PO DAILY Qty: 90 3RF pramipexole 0.5 mg tablet 0.5 mg PO TID Qty: 270 3RF ipratropium-albuterol 0.5 mg-3 mg(2.5 mg base)/3 mL solution for nebulization 3 ml inhalation Q4-6H PRN (Reason: shortness of breath or wheezing) oxycodone 5 mg tablet 5 mg PO Q6H PRN (Reason: pain) ferrous sulfate 325 MG tablet 65 mg PO DAILY acetaminophen 500 mg Tablet 1,000 mg PO Q6H PRN PRN (Reason: Pain Score 1-10) Qty: 0 0RF trazodone 100 mg Tablet 50 mg PO QHS levothyroxine 50 mcg Tablet 50 mcg PO DAILY@0600 Qty: 0 0RF Artificial Tears([id number]) 1-0.2-0.2 % Drops 1 drp EACH EYE Q1H PRN (Reason: DRY EYES) Qty: 0 0RF Nasal Moisturizing 0.65 % aerosol,spray 2 spray intranasal Q2H PRN (Reason: dry nasal passages) Qty: 50 0RF omeprazole 40 mg capsule,delayed release(DR/EC) 40 mg PO BID Qty: 180 1RF albuterol sulfate 2.5 mg /3 mL (0.083 %) solution for nebulization 2.5 mg inhalation Q4H PRN (Reason: Sob &/Or Wheezing) Qty: 180 3RF Trelegy Ellipta 100-62.5-25 mcg blister with device 1 inh inhalation QDAY Qty: 60 11RF losartan 100 mg tablet 50 mg PO BID Qty: 90 3RF furosemide [Lasix] 40 mg tablet 40 mg PO QDAY Qty: 90 3RF No Action (DME) oxygen-air delivery systems Device See Rx Instructions .Route Rx Instructions: As directed Referrals / Follow Up: Swati Banerjee DO [Primary Care Provider, Internal Medicine] - Within 2 Weeks Marybeth Millan MD [Med Staff - Active Staff, Oncology] - See Referral Note Referral Note: Call the office on 04/04/2025 to schedule follow-up appointment with them Disposition Disposition (needs filled in before D/C Order can be placed): Home, Self Care
--- NOTE | 2025-04-02 13:22 | CASEMGMT ---
Addendum entered by Trang Reyes 04/02/25 13:41: FLOR[place] MARTINES received call, [facility] is not able to provide a concentrator to accommodate 6L at this time. They ordered additional concentrators that go up to 10L but they will not get them until Friday or Friday. FLORIDA MARTINES notified hospitalist. FLORIDA MARTINES into pt room, pt nurse in the room. Pt states he feels he is doing better. Nurse will reassess O2 needs a little later to see if Pt still requiring 6L with ambulation. Original Note: Hospitalist notfied FLOR[place] MARTINES of Pt increased O2 needs. Pt needing 6L with exertion, [place] MARTINES into Pt room to see how high concentrator goes - Pt states it goes up to 5L. [place] MARTINES called [facility] to see if they are able to deliver a new concentrator. Spoke with Bryan, he is going to send information to on-call tech to have them call me back and notify if able to accomodate.
--- NOTE | 2025-04-02 14:15 | RAD_ITS ---
PROCEDURE: CHEST 1 VIEW (PORTABLE) 04/02/2025 REASON FOR EXAM: SHORTNESS OF BREATH TECHNIQUE: Frontal view of the chest. COMPARISON: 03/30/2025 FINDINGS: Right chest port. Median sternotomy wires. Evidence of prior CABG. Mild pulmonary vascular congestion and question interstitial edema. Redemonstrated right midlung and left lower lobe opacities. Trace bibasilar pleural effusions. No pneumothorax. Large cardiomegaly. No acute fractures. RAD/Chest 1 View (Portable) IMPRESSION: Mild pulmonary vascular congestion and question interstitial edema. Redemonstra inderjit right midlung and left lower lobe opacities. Trace bibasilar pleural effusions. Reading Location: [id number]
--- NOTE | 2025-04-02 20:33 | PN.HOSP_ITS ---
Reason for Visit Chief Complaint: fever Subjective Subjective Patient was seen and examined today, he had trouble remembering his home phone number today and appeared to be slightly confused at times but then appeared appropriate. Patient will need 6 L of oxygen on ambulation and 3 L at rest, unfortunately we were not able to get a new concentrator placed in his home today and there will be one available to Friday or Friday so he is going to be staying here. Objective Data Objective Data Vital Signs: Vital Signs Temp Pulse Resp BP Pulse Ox O2 Del Method O2 Flow Rate 97.8 F 82 18 110/68 99 Nasal Cannula 2 04/02/25 15:00 04/02/25 15:00 04/02/25 15:00 04/02/25 15:00 04/02/25 15:00 04/02/25 15:01 04/02/25 15:01 Oxygen Flow Rate (L/min) 2 Oxygen Delivery Method Nasal Cannula Weight: 125 kg Body Mass Index (BMI) 39.5 Intake & Output: Intake and Output for Last 24 Hours 03/31/25 04/01/25 04/02/25 23:59 23:59 23:59 Intake Total 3736.67 / 3736.67 1220 / 1220 1200 / 1200 Output Total 2850 / 2850 1475 / 1475 300 / 300 Balance 886.67 / 886.67 -255 / -255 900 / 900 Lab / Micro Data 04/01/25 05:22 04/01/25 05:22 Micro: Microbiology 03/30/25 17:56 Blood Culture (Wb) - Left Forearm Blood Culture - Preliminary No growth in 48 hours. 03/30/25 17:40 Blood Culture (Wb) - Left Forearm Blood Culture - Preliminary No growth in 48 hours. 03/30/25 18:45 Urine, Clean Catch Urine Culture - Final Gram negative danielle 03/30/25 17:45 Mucosa - Nose SARS-CoV-2, Influenza & RSV (PCR) - Final Radiography Diagnostic Testing: Radiology Impression Chest X-Ray 04/02/25 14:15 IMPRESSION: Mild pulmonary vascular congestion and question interstitial edema. Redemonstrated right midlung and left lower lobe opacities. Trace bibasilar pleural effusions. Reading Location: [id number] Physical Exam Narrative alert, oriented x3 and no apparent distress General Appearance: cooperative, well kempt and well developed Orientation / Consciousness: awake, oriented to person, oriented to place and oriented to time HEENT normocephalic, head/scalp atraumatic and moist oral mucous membranes Eyes PERRL, EOMs intact bilaterally and conjunctivae normal Neck supple, no JVD, thyroid normal and no carotid bruits General: trachea midline Resp normal respiratory effort, no retractions, no use of accessory muscles and clear to auscultation bilaterally Auscultation: Negative for rales, rhonchi or wheezes Cardio S1 normal heart sound, S2 normal heart sound, no murmurs, no rub and no gallops Cardio Narrative: Heart rate and rhythm is irregular GI normal to inspection, nondistended, normoactive bowel sounds, soft to palpation, non-tender and non-distended Extremity Extremity Narrative: Generalized lower leg edema as noted Skin no rashes or lesions noted General Skin Exam: no breakdown Neuro oriented x3, CN's II-XII intact bilaterally, moves all extremities, no focal motor deficits and no sensory deficits noted Sensorium / Orientation: awake and alert Speech: speech normal Psych affect normal Assessment & Plan Assessment/Plan (1) Acute kidney injury superimposed on CKD: (2) Sepsis: PLAN: Plan 1. Sepsis secondary to urinary tract infection-patient was placed on p.o. Levaquin today, he will complete course as an outpatient. 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-patient is following up with oncology, he will be receiving immunotherapy and possible radiation therapy #6 chronic obstructive pulmonary disease-he is on aerosol treatments with bronchodilators #7 chronic right adrenal mass-no treatment is necessary for the adrenal mass #8 type 2 diabetes-patient is on sliding scale insulin and fingerstick blood sugars #9 chronic atrial fibrillation-patient is on rate control medication but is not on anticoagulation due to multiple medical issues, he is on rate control medication Total clinical time spent by myself addressing the patient's medical issues, reviewing all of his data, and collaborating with patient's care team: 35 minutes Charges/Coding Visit Charges Inpatient E&M: 90380 Subs Hosp L2
[2025-04-02] MEDS: 0.9% Saline Lock 10 ML Syringe IV (21:15)
[2025-04-03] VITALS (7 sets, daily range): BP systolic 116–135; BP diastolic 57–71; PULSE 64–90; RESP 18–19; TEMP 36.6–36.7; O2SAT 86–98; BMI 39.2
[2025-04-03] MEDS: Budesonide Respules 0.5 MG/2 ML AMPUL.NEB. INHALATION (06:32)
[2025-04-03] MEDS: Metoprolol(XL)Succ 25 MG Tablet PO (10:43)
[2025-04-03] MEDS: Cholecalciferol (Vit D3) 125 MCG CAPSULE (5,000 UNITS) PO (10:44)
[2025-04-03] MEDS: Senna/Docusate Sodium 1 Tablet PO (10:44)
[2025-04-03] MEDS: 0.9% Saline Lock 10 ML Syringe IV (10:49)
--- NOTE | 2025-04-03 13:37 | PCM.DC.SUM ---
Providers Date of Admission: 03/30/25 Primary Care Physician: Dr. Swati Banerjee, Consultations 03/30/25 23:58 Consult: Onc/Wound/resume writer Routine Comment: Reason for Consult:: burn: fluid filled blister Reason For Visit: SEPSIS DUE TO UTI Diagnosis Discharge Diagnosis (1) Acute kidney injury superimposed on CKD: Status: Chronic Code(s): N17.9 - Acute kidney failure, unspecified; N18.9 - Chronic kidney disease, unspecified (2) Sepsis: Status: Acute Code(s): A41.9 - Sepsis, unspecified organism Plan 1. Sepsis secondary to urinary tract infection-patient was placed on p.o. Levaquin today, he will complete course as an outpatient. 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-patient is following up with oncology, he will be receiving immunotherapy and possible radiation therapy #6 chronic obstructive pulmonary disease-he is on aerosol treatments with bronchodilators #7 chronic right adrenal mass-no treatment is necessary for the adrenal mass #8 type 2 diabetes-patient is on sliding scale insulin and fingerstick blood sugars #9 chronic atrial fibrillation-patient is on rate control medication but is not on anticoagulation due to multiple medical issues, he is on rate control medication Total clinical time spent by myself addressing the patient's medical issues, reviewing all of his data, and collaborating with patient's care team: 35 minutes Medications at Discharge Home Medications ferrous sulfate 325 mg (65 mg iron) tablet 65 mg PO DAILY supplement 02/01/19 cholecalciferol (vitamin D3) 125 mcg (5,000 unit) capsule 5,000 unit PO DAILY cholesterol 03/30/19 rosuvastatin 20 mg tablet 20 mg PO DAILY cholesterol 03/05/22 levothyroxine 50 mcg tablet 50 mcg PO DAILY@0600 Thyroid #0 tabs 04/26/24 peg [id number] 1 %-0.2 %-0.2 % eye drops (Artificial Tears ([id number])) 1 drp EACH EYE Q1H PRN DRY EYES #0 mL 04/26/24 sodium chloride 0.65 % nasal spray aerosol (Nasal Moisturizing) 2 spray intranasal Q2H PRN dry nasal passages #50 mL 04/26/24 acetaminophen 500 mg tablet 1,000 mg (2 x 500 mg) PO Q6H PRN PRN Pain Score 1-10 #0 tabs 05/24/24 omeprazole 40 mg capsule,delayed release 40 mg PO BID GERD #180 caps 06/24/24 albuterol sulfate 2.5 mg/3 mL (0.083 %) solution for nebulization 2.5 mg (3 mL) inhalation Q4H PRN Sob &/Or Wheezing #180 mL 06/30/24 cyanocobalamin (vitamin B-12) 1,000 mcg/mL injection solution 1,000 mcg IM QMONTH SUPPLEMENT 07/15/24 docusate sodium 100 mg capsule 100 mg PO BID constipation 07/15/24 folic acid 1 mg tablet 1 mg PO QDAY suppleme 07/15/24 gabapentin 600 mg tablet 600 mg PO QHS pain 07/15/24 metoprolol succinate 25 mg tablet,extended release 24 hr 25 mg PO QDAY htn 07/15/24 multivitamin (Multiple Vitamins tablet) 1 tab PO QDAY supplement 07/15/24 oxygen-air delivery systems 07/15/24 fluticasone fur. 100 mcg-umeclid 62.5 mcg-vilant 25 mcg inhalat.powder (Trelegy Ellipta) 1 inh inhalation QDAY Asthma #60 ea 09/09/24 losartan 100 mg tablet 50 mg (1/2 x 100 mg) PO BID heart #90 tabs 10/25/24 pramipexole 0.5 mg tablet 0.5 mg PO TID parkinsons #270 tabs 11/18/24 amlodipine 5 mg tablet 5 mg PO DAILY HTN #90 tabs 12/09/24 dapagliflozin propanediol 10 mg tablet (Farxiga) 10 mg PO QDAY DM 12/09/24 ipratropium 0.5 mg-albuterol 3 mg (2.5 mg base)/3 mL nebulization soln 3 ml inhalation Q4-6H PRN shortness of breath or wheezing 12/14/24 furosemide 40 mg tablet (Lasix) 40 mg PO QDAY edema #90 tabs 08/12/25 trazodone 100 mg tablet 50 mg PO QHS Sleep 02/23/25 oxycodone 5 mg tablet 5 mg PO Q6H PRN pain 03/29/25 levofloxacin 250 mg tablet 250 mg PO DAILY #5 tabs 04/02/25 Hospital Course Operations None Procedures None Summary of Care Provided Minutes Spent on Discharge: 33 Hospital Course: Patient was seen in the emergency room at [facility] due to complaints of fever over the last few weeks. Urinalysis had been collected at the patient's oncologist office. Workup in the emergency room revealed the patient to be afebrile, his oxygen saturation was 97% on his home oxygen setting of 3 L, CBC showed hemoglobin of 9.3 and a white blood cell count of 18,000, creatinine was elevated at 2.2. Urinalysis showed elevated WBCs and leukocyte esterase, urine nitrite and bacteria were negative. Lactic acid was normal, CT of the abdomen was obtained which showed a large mass in the abdomen near the adrenal gland which was chronic for the patient and known to be nonmalignant, there was also liver mets noted on the scan which was a known entity. Patient was admitted for sepsis due to UTI, he was placed on IV vancomycin and Zosyn and blood cultures and urine cultures were obtained. Patient was given IV fluids and his blood pressure improved. His elevated troponin was felt to be secondary to demand ischemia, he was seen in consultation by the wound care nurse due to a heating pad burn on his buttocks. Patient improved and was transferred to PCU for further care, PT and OT saw the patient and urinalysis obtained in the hospital ultimately grew out small numbers of Proteus, however, patient's urinalysis obtained as an outpatient grew out more than 100,000 colonies of Proteus. I had conversations with the patient's oncologist who is seeing the patient for metastatic squamous cell lung cancer, he appears to be a candidate for immunotherapy. There was some discussion about having to set up a different oxygen concentrator for the patient due to the fact that at 1 time during his hospitalization he required 6 L while ambulating, on 04/03/2025 however, his oxygen qualifications were carried out again and it was noted that he only needed 4 L on ambulation and 3 L at rest. On 04/03/2025, patient was seen and examined:alert, oriented x3 and no apparent distress General Appearance: cooperative, well kempt and well developed Orientation / Consciousness: awake, oriented to person, oriented to place and oriented to time HEENT normocephalic, head/scalp atraumatic and moist oral mucous membranes Eyes PERRL, EOMs intact bilaterally and conjunctivae normal Neck supple, no JVD, thyroid normal and no carotid bruits General: trachea midline Resp normal respiratory effort, no retractions, no use of accessory muscles and clear to auscultation bilaterally Auscultation: Negative for rales, rhonchi or wheezes Cardio S1 normal heart sound, S2 normal heart sound, no murmurs, no rub and no gallops Cardio Narrative: Heart rate and rhythm is irregular GI normal to inspection, nondistended, normoactive bowel sounds, soft to palpation, non-tender and non-distended Extremity Extremity Narrative: Generalized lower leg edema as noted Skin no rashes or lesions noted General Skin Exam: no breakdown Neuro oriented x3, CN's II-XII intact bilaterally, moves all extremities, no focal motor deficits and no sensory deficits noted Sensorium / Orientation: awake and alert Speech: speech normal Psych affect normal Patient was discharged home in stable condition on 04/03/2025 Weight / BMI Weight Weight: 124.1 kg Body Mass Index (BMI) 39.2 ABG / Lab / Microbiology Data 04/01/25 05:22 04/01/25 05:22 Microbiology: Microbiology 03/30/25 17:56 Blood Culture (Wb) - Left Forearm Blood Culture - Preliminary No growth in 48 hours. 03/30/25 17:40 Blood Culture (Wb) - Left Forearm Blood Culture - Preliminary No growth in 48 hours. 03/30/25 18:45 Urine, Clean Catch Urine Culture - Final Gram negative danielle 03/30/25 17:45 Mucosa - Nose SARS-CoV-2, Influenza & RSV (PCR) - Final Radiography Diagnostic Testing: Radiology Impression Chest X-Ray 04/02/25 14:15 IMPRESSION: Mild pulmonary vascular congestion and question interstitial edema. Redemonstrated right midlung and left lower lobe opacities. Trace bibasilar pleural effusions. Reading Location: [facility] D/C Instructions Weight Bearing Status: Full weight bearing DC O2, CPAP, BIPAP Needs Home O2 Discharge instructions: Yes Type of respiratory needs?: Oxygen Oxygen frequency: At rest and With Ambulation Oxygen liters per minute during Ambulation: 4 L DC home with Oxygen: Yes Home O2 MD Review: I have reviewed the oxygen testing, and the patient qualifies for home oxygen equipment and portability. The patient is mobile in the home and the community. Meaningful Use Info Meaningful Use Meaningful Use Diagnoses (Choose all that apply): None applicable Discharge Plan Admission Admit Date/Time: 03/30/25 21:03 Primary Reason for Your Visit: Sepsis secondary to urinary tract infection Attending Provider: Leo Velasquez Primary Care Provider: Swati Banerjee Consulting Providers: May Tirado Instructions Additional Instructions / Restrictions: Start the levofloxacin on 04/04/2025 Discharge Orders/Prescriptions Prescriptions: New levofloxacin 250 mg tablet 250 mg PO DAILY Qty: 5 0RF Rx Instructions: Start on 04/03/2025 Continued cholecalciferol (vitamin D3) 5,000 unit capsule 5,000 unit PO DAILY rosuvastatin 20 mg tablet 20 mg PO DAILY gabapentin 600 mg tablet 600 mg PO QHS cyanocobalamin (vitamin B-12) 1,000 mcg/mL solution 1,000 mcg IM QMONTH docusate sodium 100 mg capsule 100 mg PO BID folic acid 1 mg tablet 1 mg PO QDAY multivitamin [Multiple Vitamins] Tablet 1 tab PO QDAY metoprolol succinate 25 mg tablet extended release 24 hr 25 mg PO QDAY dapagliflozin propanediol [Farxiga] 10 mg tablet 10 mg PO QDAY amlodipine 5 mg tablet 5 mg PO DAILY Qty: 90 3RF pramipexole 0.5 mg tablet 0.5 mg PO TID Qty: 270 3RF ipratropium-albuterol 0.5 mg-3 mg(2.5 mg base)/3 mL solution for nebulization 3 ml inhalation Q4-6H PRN (Reason: shortness of breath or wheezing) oxycodone 5 mg tablet 5 mg PO Q6H PRN (Reason: pain) ferrous sulfate 325 MG tablet 65 mg PO DAILY acetaminophen 500 mg Tablet 1,000 mg PO Q6H PRN PRN (Reason: Pain Score 1-10) Qty: 0 0RF trazodone 100 mg Tablet 50 mg PO QHS levothyroxine 50 mcg Tablet 50 mcg PO DAILY@0600 Qty: 0 0RF Artificial Tears([id number]-[id number]) 1-0.2-0.2 % Drops 1 drp EACH EYE Q1H PRN (Reason: DRY EYES) Qty: 0 0RF Nasal Moisturizing 0.65 % aerosol,spray 2 spray intranasal Q2H PRN (Reason: dry nasal passages) Qty: 50 0RF omeprazole 40 mg capsule,delayed release(DR/EC) 40 mg PO BID Qty: 180 1RF albuterol sulfate 2.5 mg /3 mL (0.083 %) solution for nebulization 2.5 mg inhalation Q4H PRN (Reason: Sob &/Or Wheezing) Qty: 180 3RF Trelegy Ellipta 100-62.5-25 mcg blister with device 1 inh inhalation QDAY Qty: 60 11RF losartan 100 mg tablet 50 mg PO BID Qty: 90 3RF furosemide [Lasix] 40 mg tablet 40 mg PO QDAY Qty: 90 3RF No Action (DME) oxygen-air delivery systems Device See Rx Instructions .Route Rx Instructions: As directed Referrals / Follow Up: Swati Banerjee DO [Primary Care Provider, Internal Medicine] - Within 2 Weeks Marybeth Millan MD [Med Staff - Active Staff, Oncology] - See Referral Note Referral Note: Call the office on 04/04/2025 to schedule follow-up appointment with them Disposition Disposition (needs filled in before D/C Order can be placed): Home, Self Care Charges/Coding Visit Charges Inpatient E&M: 56034 Disch Hosp >30min
--- NOTE | 2025-04-03 14:18 | NURSING ---
Rudi faxed updated oxygen prescription.
--- NOTE | 2025-04-03 14:21 | PCA ---
THIS US CALLED [facility] AND LET THEM KNOW THE PATIENT WAS BEING DISCHARGED. THIS US THEN FAXED THE DISCHARGE INSTRUCTIONS TO [phone] DIRECTED.
== END 2025-04-03 16:40 | disposition home health service (06) | DRG 872 ==
LOC: ED 17:41 → ICU 21:08 → PCU 03-31 14:46
PROVIDERS: Admitting Provider Student in an Organized Health Care Education/Training Program; Emergency Provider Emergency Medicine; PCP Internal Medicine; Visit Provider Internal Medicine
DX: A41.59 Other Gram-negative sepsis (principal); C78.7 Secondary malignant neoplasm of liver and intrahepatic bile duct; I24.89 Other forms of acute ischemic heart disease; C34.12 Malignant neoplasm of upper lobe, left bronchus or lung; J96.11 Chronic respiratory failure with hypoxia; C34.31 Malignant neoplasm of lower lobe, right bronchus or lung; I48.20 Chronic atrial fibrillation, unspecified; C79.89 Secondary malignant neoplasm of other specified sites; N17.9 Acute kidney failure, unspecified; C79.51 Secondary malignant neoplasm of bone; N39.0 Urinary tract infection, site not specified; E86.0 Dehydration; G20.A1 Parkinson's disease without dyskinesia, without mention of fluctuations; J44.9 Chronic obstructive pulmonary disease, unspecified; E11.40 Type 2 diabetes mellitus with diabetic neuropathy, unspecified; N18.30 Chronic kidney disease, stage 3 unspecified; I12.9 Hypertensive chronic kidney disease with stage 1 through stage 4 chronic kidney disease, or unspecified chronic kidney disease; D50.0 Iron deficiency anemia secondary to blood loss (chronic); I25.2 Old myocardial infarction; I25.10 Atherosclerotic heart disease of native coronary artery without angina pectoris; E78.5 Hyperlipidemia, unspecified; G47.33 Obstructive sleep apnea (adult) (pediatric); T21.25XA Burn of second degree of buttock, initial encounter; I95.9 Hypotension, unspecified; E27.9 Disorder of adrenal gland, unspecified; E11.22 Type 2 diabetes mellitus with diabetic chronic kidney disease; K21.9 Gastro-esophageal reflux disease without esophagitis; Z99.81 Dependence on supplemental oxygen; X16.XXXA Contact with hot heating appliances, radiators and pipes, initial encounter; Z23 Encounter for immunization; Z95.1 Presence of aortocoronary bypass graft; Z90.2 Acquired absence of lung [part of]; Z79.51 Long term (current) use of inhaled steroids; Z87.19 Personal history of other diseases of the digestive system; Z87.891 Personal history of nicotine dependence; Z79.890 Hormone replacement therapy; Z79.899 Other long term (current) drug therapy; Z86.0101 Personal history of adenomatous and serrated colon polyps; Z79.84 Long term (current) use of oral hypoglycemic drugs
CPT/HCPCS: 36415; 71045; 74176; 80048; 81001; 83605; 84484; 85025; 85610; 85730; 87040; 87086; 87088; 87631; 93005; 94640; 94760; 97116; 97162; 97166; 97530; 97535; 99285; A4216; J0696

== ENCOUNTER → 2025-04-08 | Outpatient (CLI) | payer MEDICARE, OTHER, SELFPAY ==
[2025-04-08 12:16] LABS: Mucous, Urine 0 SEEN /hpf (<or=2+); Red Blood Cells-Urine 0 SEEN /hpf (0-5)
[2025-04-08 12:33] LABS: Color, Urine Yellow (Yellow); Glucose, Dipstick 1000 mg/dl (Normal); Ketone-Dipstick Negative (Negative); Leukocyte Esterase-Dipstick 100 /ul (Negative); Nitrite-Dipstick Negative (Negative); Occult Blood-Urine 25 /ul (Negative); Protein-Dipstick 100 mg/dl (Negative); Specific Gravity, Urine 1.015 (1.002-1.030); Urine Bilirubin Dipstick Negative (Negative)
[2025-04-08 12:46] LABS: Squamous Epithelial Cells - UA 0-5 SEEN /hpf (0-5)
== END | disposition home or self-care (01) ==
LOC: HHLAB 11:57
PROVIDERS: PCP Internal Medicine; Referring Provider Internal Medicine; Visit Provider Internal Medicine
DX: A41.9 Sepsis, unspecified organism (principal); R30.0 Dysuria; R39.89 Other symptoms and signs involving the genitourinary system
CPT/HCPCS: 81001; 87086

== ENCOUNTER 2025-04-09 16:28 | Inpatient (IN) | payer MEDICARE, OTHER, SELFPAY ==
[2025-04-09] VITALS (12 sets, daily range): BP systolic 71–108; BP diastolic 43–73; PULSE 87–130; RESP 20–33; TEMP 37.4–39.4; O2SAT 88–98; BMI 38.5; BMI 37.3
--- NOTE | 2025-04-09 16:41 | RAD_ITS ---
PROCEDURE: RAD/Chest 1 View (Portable)
[2025-04-09] MEDS: 0.9% Normal Saline (1000mL) 1,000 ML 999 ML IV ×4 (16:55→20:58)
[2025-04-09 17:00] LABS: Mucous, Urine 0 SEEN /hpf (<or=2+)
[2025-04-09 17:02] LABS: Color, Urine Yellow (Yellow); Glucose, Dipstick 250 mg/dl (Normal); Ketone-Dipstick Negative (Negative); Leukocyte Esterase-Dipstick 500 /ul (Negative); Nitrite-Dipstick Negative (Negative); Occult Blood-Urine 25 /ul (Negative); Protein-Dipstick 100 mg/dl (Negative); Specific Gravity, Urine 1.015 (1.002-1.030); Urine Bilirubin Dipstick Negative (Negative)
[2025-04-09 17:02] LABS: Hematocrit 32.4 % (40-54); Hemoglobin 10.0 g/dL (13.0-16.5); Immature Granulocytes Count 0.370 X10^3/uL (0.0-0.0); Mean Corp Hgb Conc 30.9 g/dL (32-36); Mean Corpuscular Volume 85.5 fL (80-94); Mean Platelet Vol. 10.3 fl (6.2-12.0); NRBC Flagged by Analyzer 0 % (0-5); POSITIVE COUNT YES; POSITIVE DIFFERENTIAL YES; Platelet Count 285 K/mm3 (150-450); RBC Distribution Width CV 16.9 % (11.6-14.6); RBC Distribution Width SD 52.0 fl (35.1-43.9); Red Blood Count 3.79 M/mm3 (4.6-6.2)
[2025-04-09] MEDS: Albuterol 2.5 MG/3 ML VIAL.NEB. INHALATION (17:03)
[2025-04-09 17:05] LABS: Base Excess 3 mmol/L (-2 to +2); FI02 2.0; PO2 61 mmHG (75-100); SITE R Radial; SO2 90 % (94-98)
[2025-04-09 17:26] LABS: AST(SGOT) 39 U/L (<=37); Alanine Aminotransfer ALT/SGPT 32 U/L (<=46); Albumin, Serum 3.0 g/dL (3.4-4.8); Alkaline Phosphatase 371 U/L (40-129); Anion Gap 12 (5-15); BUN 38 mg/dL (4-19); BUN/Creat Ratio 16.7 RATIO (10-20); Calcium,Total 9.0 mg/dL (7.6-11.0); Carbon Dioxide 26.2 mmol/L (21.0-32.0); Chloride 100 mmol/L (98-108); Estimated Creatinine Clearance 34.70 ml/min (50-250); Globulin 3.2 g/dL (2.2-4.2); Glucose 121 mg/dL (70-99); Potassium 4.0 mmol/L (3.3-5.1); Prothrombin Time (Protime)PT. 18.2 SECONDS (11.7-14.9)
[2025-04-09 17:27] LABS: Partial Thromboplast Time 32.4 Seconds (24.1-36.2)
[2025-04-09 17:32] LABS: Differential Indicated SCAN CRITERIA MET; White Blood Count 31.7 K/mm3 (4.4-11.0)
[2025-04-09 17:42] LABS: CPK Total, Creatine Kinase 28 U/L (24-195); Troponin T High Sensitivity 94 ng/L (<=22)
[2025-04-09] MEDS: Piperacil/Tazobactam 4.5 GM in 0.9% Normal Saline (100mL MB+) 100 ML IV (17:53)
[2025-04-09 18:07] LABS: Red Blood Cells-Urine 0-5 SEEN /hpf (0-5)
[2025-04-09 18:08] LABS: Squamous Epithelial Cells - UA 0-5 SEEN /hpf (0-5)
--- NOTE | 2025-04-09 18:20 | EX.ED.DYSGE1 ---
HPI History of Present Illness Chief Complaint: Fever Narrative Narrative: Patient is a 79-year-old male with a history of a recent UTI, presenting to the ED via EMS with dyspnea, fever, and foul-smelling urine. Patient is accompanied by his , who is providing additional history. - Patient was recently treated for a UTI and discharged from the hospital 6 days ago with antibiotics. states the culture came back showing resistance to the initial Levaquin he was placed on and they just started a new antibiotic, Bactrim less than 1 day ago. - reports a fever of 102.8?F today and foul-smelling urine during incontinence care. Last had Tylenol several hours prior to arrival. - EMS reports that patient is normally on 4 L of O2 at home; upon arrival, he was found to be hypoxic with an SpO2 of 88% and exhibiting guppy breathing; placed on a non-rebreather mask. - Patient reports a moist, productive cough for the past few days; denies known hemoptysis. - Denies abdominal pain and no vomiting. - Has a history of A-fib and is on anticoagulation therapy, though he is unsure of the specific medication. - Denies chest pain. - Unsure of the amount of supplemental O2 used at home. - Noted to have bilateral lower extremity swelling. Patient unsure of whether this is worse than usual or not. 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 Metastasis to liver Pain Cancer of lower lobe of right lung Nodule of parotid gland History of home oxygen therapy Cardiology follow-up encounter Gastric ulcer History of lung cancer Adrenal mass History of Parkinson's disease History of atrial fibrillation Hx of cancer of lung Pulmonary hypertension Emphysema, unspecified History of echocardiogram History of stress test Hypertension History of atrial fibrillation Hx of fracture of ankle COVID Chronic combined systolic and diastolic CHF (congestive heart failure) Severe pulmonary arterial systolic hypertension Wears glasses Uses wheelchair Walker as ambulation aid Ambulates with cane Arthritis Anemia Migraine headache Injury of head and neck Parkinson's disease Gastric reflux Former smoker BiPAP (biphasic positive airway pressure) dependence COPD (chronic obstructive pulmonary disease) On home oxygen therapy History of pain when walking History of edema Amputated great toe of left foot Amputation of one or more toes Chronic ulcer of left foot with fat layer exposed Hammer toe of left foot Toe osteomyelitis Right ventricular dilation, secondary Right ventricular systolic dysfunction Respiratory failure with hypoxia Diverticular disease Polyp of colon, adenomatous Chronic gastritis Multiple premature ventricular complexes Longstanding persistent atrial fibrillation Hyperlipidemia Acute kidney injury NSTEMI (non-ST elevated myocardial infarction) (12/02/19) Sepsis Gastric AVM Adenocarcinoma of lung, stage 1 GI bleed Iron deficiency anemia due to chronic blood loss Atherosclerosis of coronary artery of [place] heart without angina pectoris Cancer of upper lobe of left lung 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 Benign essential hypertension HEBER (obstructive sleep apnea) Dementia Parkinsons Essential tremor GERD (gastroesophageal reflux disease) Alcohol dependence Home Medications ?Medication ?Instructions ?Recorded ?Last Taken ?Type ferrous sulfate 325 mg (65 mg 65 mg PO DAILY supplement 02/01/19 04/09/25 History iron) tablet cholecalciferol (vitamin D3) 125 5,000 unit PO DAILY cholesterol 03/30/19 04/09/25 History mcg (5,000 unit) capsule peg [id number] 1 1 drp EACH EYE Q1H PRN DRY EYES #0 04/26/24 04/25/24 10:10 Rx %-0.2 %-0.2 % eye drops mL (Artificial Tears ([id number])) sodium chloride 0.65 % nasal spray 2 spray intranasal Q2H PRN dry 04/26/24 04/26/24 09:10 Rx aerosol (Nasal Moisturizing) nasal passages #50 mL acetaminophen 500 mg tablet 1,000 mg (2 x 500 mg) PO Q6H PRN 05/24/24 Unknown Rx PRN Pain Score 1-10 #0 tabs cyanocobalamin (vitamin B-12) 1,000 mcg IM QMONTH SUPPLEMENT 07/15/24 07/26/24 History 1,000 mcg/mL injection solution docusate sodium 100 mg capsule 100 mg PO BID constipation 07/15/24 04/09/25 History gabapentin 600 mg tablet 1,200 mg PO QHS pain 07/15/24 04/08/25 History metoprolol succinate 25 mg 25 mg PO QDAY htn 07/15/24 04/09/25 History tablet,extended release 24 hr oxygen-air delivery systems 07/15/24 Unknown History fluticasone fur. 100 mcg-umeclid 1 inh inhalation QDAY Asthma #60 ea 09/09/24 Unknown Rx 62.5 mcg-vilant 25 mcg inhalat.powder (Trelegy Ellipta) losartan 100 mg tablet 50 mg (1/2 x 100 mg) PO BID heart 10/25/24 04/09/25 Rx #90 tabs dapagliflozin propanediol 10 mg 10 mg PO QDAY DM 12/09/24 04/09/25 History tablet (Farxiga) furosemide 40 mg tablet (Lasix) 40 mg PO QDAY edema #90 tabs 01/25/25 04/09/25 Rx oxycodone 5 mg tablet 5 mg PO Q6H PRN pain 03/29/25 Unknown History cranberry fruit concentrate 250 mg 250 mg PO DAILY 04/09/25 Unknown History chewable tablet (Azo Cranberry) levothyroxine 50 mcg tablet 50 mcg PO DAILY 04/09/25 04/09/25 History omeprazole 40 mg capsule,delayed 40 mg PO BID 04/09/25 04/09/25 History release pramipexole 0.5 mg tablet 0.5 mg PO TID 04/09/25 04/09/25 History rosuvastatin 20 mg tablet (Crestor) 20 mg PO DAILY 04/09/25 04/08/25 History sucralfate 1 gram tablet 1 g PO TID 04/09/25 04/09/25 History sulfamethoxazole 800 1 tab PO BID 04/09/25 04/09/25 History mg-trimethoprim 160 mg tablet trazodone 50 mg tablet 50 mg PO QHS 04/09/25 04/08/25 History Allergy/AdvReac Type Severity Reaction Status Date / Time No Known Allergies Allergy Verified 03/30/25 16:00 Family History Sister Alcoholism Cancer Mother Arthritis Father Arthritis Brother Cancer Surgical History History of transurethral resection of prostate Hx of toe surgery SURGICAL REMOVAL LEFT GREAT TOE History of right and left heart catheterization (12/04/16) History of colonoscopy (03/22/20) History of esophagogastroduodenoscopy (03/22/20) History of left heart catheterization (2016) History of coronary artery stent placement (12/23/06) Status post insertion of iliac artery stent (08/04/12) Status post surgical removal of neoplasm of skin History of tonsillectomy and adenoidectomy History of hammer toe correction History of open reduction and internal fixation (ORIF) procedure History of open reduction and internal fixation (ORIF) procedure History of lobectomy of lung History of cardioversion (12/2016) H/O coronary artery bypass surgery (02/14/06) Social History household members: spouse Smoking Status: Former smoker quit date: 11/14/93 how long ago did patient quit smokin years ago second hand exposure: No alcohol intake: current alcohol intake frequency: holidays/special occasions only Alcohol type: wine substance use type: does not use caffeine: Yes Type: coffee Number of servings: 1 what type of physical activity do you participate in: none frequency: does not exercise seatbelt use: always ROS ROS ED Constitutional Constitutional ED: Reports chills, fever(s) and weakness Eyes Eyes: Denies change in vision or diplopia ENT ENT ED: Denies rhinorrhea or sore throat Cardiovascular Cardiovascular: Reports leg edema; Denies chest pain or palpitations Respiratory/Chest Respiratory/Chest: Reports cough, dyspnea and sputum Gastrointestinal Gastrointestinal: Denies abdominal pain, diarrhea, nausea or vomiting Genitourinary Genitourinary ED: Denies hematuria Musculoskeletal Musculoskeletal: Denies back pain or neck pain Integumentary Denies abscess or rash Neurologic Neurologic: Denies headache(s), paresthesias or weakness Psychiatric Psychiatric: Denies anxiety or suicidal thoughts EXAM Physical Exam Const Vital Signs: 04/09/25 16:28 04/09/25 16:33 04/09/25 16:44 Temperature 99.8 F H 99.8 F H Temperature Source Oral Oral Pulse Rate 128 H 128 H Respiratory Rate 31 H 33 H Respiratory Effort Respiratory Pattern Blood Pressure 71/43 L 82/50 L Blood Pressure Mean 52 60 Pulse Ox 88 92 Oxygen Delivery Method Room Air Nasal Cannula Nasal Cannula Oxygen Flow Rate (L/min) 2 2 04/09/25 16:58 04/09/25 17:09 04/09/25 17:23 Temperature 103.0 F H Temperature Source Core Pulse Rate 130 H 119 H Respiratory Rate 29 H 22 H Respiratory Effort Short of Breath Respiratory Pattern Tachypnea Blood Pressure 79/51 L Blood Pressure Mean 60 Pulse Ox 93 Oxygen Delivery Method Nasal Cannula Oxygen Flow Rate (L/min) 2 04/09/25 17:35 Temperature 102.8 F H Temperature Source Core Pulse Rate 109 H Respiratory Rate 26 H Respiratory Effort Respiratory Pattern Blood Pressure 76/45 L Blood Pressure Mean 55 Pulse Ox 93 Oxygen Delivery Method Nasal Cannula Oxygen Flow Rate (L/min) 2 Positive well nourished and well developed General Appearance ED: well developed and NAD HEENT Reports moist mucous membranes normocephalic and atraumatic Eyes PERRL and EOMs intact bilaterally Neck full ROM and supple Resp normal respiratory effort Resp Narrative: Rales right base Cardio Rate: tachycardic Rhythm: abnormal rhythm irregularly irregular GI non-tender and non-distended Auscultation: normoactive bowel sounds Palpation: soft Back/Spine no CVA tenderness General Back: other FROM Extremity normal to inspection General Extremety ED: Yes edema; Negative for pulses abnormal or tenderness General Extremity: edema bilateral lower extremity Details: moderate; Negative for pulses abnormal Neuro oriented x3, CN's II-XII intact bilaterally and no sensory deficits noted Sensorium / Orientation: awake and alert Motor Exam: general weakness Psych mental status grossly normal Skin no rashes or lesions noted and no wounds MDM MDM MDM Narrative Medical decision making narrative: The patient presents with fevers, hypotension, atrial fibrillation with rapid ventricular response (AFib with RVR), and a new productive cough and dyspnea suggesting possible pneumonia. He also has leg edema, jugular venous distention (JVD), and an echocardiogram from January showing moderate right ventricular systolic dysfunction, 3+ tricuspid insufficiency, and pulmonary hypertension, with a left ventricular ejection fraction (EF) of 55%. Because of his hypotension, an IV fluid bolus is indicated initially. In addition, given his dyspnea and mild tachycardia, he was given a single albuterol treatment to see if it would help. He is not currently in respiratory distress or in need of mechanical ventilation. His arterial blood gas (ABG) is reassuring, with no hypercapnia and a normal pH. EKG demonstrates rapid AFib without acute injury pattern and otherwise unchanged morphology. Additional labs show acute kidney injury (DELVIS) and significant leukocytosis of 31.7 with a strong leftward shift (1.2% bands). His troponin is elevated, but based on his symptoms and EKG, this likely reflects shock and DELVIS in the setting of AFib with RVR rather than an acute coronary syndrome, though it will be trended. His urine demonstrates persistent pyuria, and a one-view chest X-ray shows a right middle lobe infiltrate. Accordingly, he was started empirically on IV Zosyn and ciprofloxacin for suspected healthcare-associated pneumonia, following sepsis guidelines. His lactate is normal, but he is likely septic. Clinically, he appears well overall, breathing adequately on nasal cannula with saturations in the 90s. He has received 3,000 of his 3,600 cc IV fluid bolus to complete the 30 cc/kg requirement, and his blood pressure is 61. He is alert, and Levophed is being initiated via his existing MedPort to avoid the risks of placing another central line. Nurses will place an additional peripheral IV for added access. I have discussed his condition with the hospital for ICU admission. History & Record Review Discussion w/independent historian: Patient and Family Additional record(s) reviewed:: Prior labs Lab Data Attestation: I reviewed the patient's lab results. Labs: Laboratory Results - last 24 hr 04/09/25 04/09/25 16:46 16:53 WBC 31.7 H* RBC 3.79 L Hgb 10.0 L Hct 32.4 L MCV 85.5 MCH 26.4 L MCHC 30.9 L RDW Std Deviation 52.0 H RDW Coeff of [place] 16.9 H Plt Count 285 MPV 10.3 Immature Gran % (Auto) 1.200 H Neut % (Auto) 89.1 H Lymph % (Auto) 1.5 L [place] % (Auto) 7.5 Eos % (Auto) 0.4 Baso % (Auto) 0.3 Absolute Neuts (auto) 28.3 H Absolute Lymphs (auto) 0.48 L Nucleated RBC % 0 PT 18.2 H INR 1.5 APTT 32.4 Sodium 139 Potassium 4.0 Chloride 100 Carbon Dioxide 26.2 Anion Gap 12 BUN 38 H Creatinine 2.26 H Estim Creat Clear Calc 34.70 L Est GFR (MDRD) Non-Af 29 L BUN/Creatinine Ratio 16.7 Glucose 121 H Lactic Acid 1.7 Calcium 9.0 Total Bilirubin 0.93 AST 39 H ALT 32 Alkaline Phosphatase 371 H Total Creatine Kinase 28 Troponin T High Sens 94 H* D Total Protein 6.2 Albumin 3.0 L Globulin 3.2 Albumin/Globulin Ratio 0.9 Urine Color Yellow Urine Clarity Sl. Cloudy Urine pH 6.0 Ur Specific [place] 1.015 Urine Protein 100 H Urine Glucose (UA) 250 H Urine Ketones Negative Urine Occult Blood 25 H Urine Nitrite Negative Urine Bilirubin Negative Urine Urobilinogen Normal Ur Leukocyte Esterase 500 H Urine RBC 0-5 SEEN Urine WBC 25-50 SEEN Ur Squamous Epith Cells 0-5 SEEN Amorphous Sediment 2+ Urine Bacteria 2+ Urine Mucus 0 SEEN ABG Data ABG results: ABG 04/09/25 17:02 Specimen Type ART Sample Site R Radial pH 7.39 Bicarbonate Actual 27.5 H Total CO2 29 Base Excess 3 H O2 Saturation 90 L O2 % 2.0 ABG pCO2 45.7 H ABG pO2 61 L John Test N/A O2 Delivery Device Cannula Vent Mode Not entered Rhythm Strip Rhythm Strip: A-fib Rate: 135 Ectopy: None EKG Initial EKG: Attestation: I personally reviewed and interpreted this EKG as follows: Interpretation: No Acute Injury Pattern, Atrial Fibrillation and Non-Specific ST Changes Management Discussion w/another healthcare provider: Hospitalist Critical Care Time Critical Care Time: Yes Critical care time (excluding procedures): 30-74 minutes (36 min), Including time spent:, Discussing w/Patient &/or Family/Hydraulic Mechanic, Discussing w/Consultants, Arranging Admission or Transfer and Performing Direct Patient Care at Bedside Discharge Plan Dx/Rx/DC Orders Clinical Impression: Septic shock, Pneumonia, Acute UTI, Atrial fibrillation with RVR, DELVIS (acute kidney injury), Elevated troponin, Hypoxemia Disposition Disposition: [facility]
[2025-04-09] MEDS: Norepinephrine Bit/0.9% NaCl 8 MG/250 ML IV.SOLN 9.4 MG CONT INF (18:51)
--- NOTE | 2025-04-09 18:58 | PCM.HP.STD ---
HPI - General General Date of Admission: 04/09/25 Date of Service: 04/09/25 Chief Complaint: Fever HPI Narrative JV DURHAM, is a 79 M who presents with fever. This is a 79-year-old male with history of a atrial fibrillation presents with fevers from home. He was just discharged on the for UTI. Was discharged with Levaquin but was told that he had the antibiotics he was on was resistant to Levaquin and switched over to Bactrim. But he was at home and then started having fever the past couple days and presented to the emergency room. In the emergency room, he was noted to be in septic shock with temp of 39 4, heart rate 130, blood pressure 82/50, after 30 cc/kg of IV fluids was down to 59/41 and the decision was made to start norepinephrine in the emergency room. Patient is coughing but nothing productive. Complains of pain due to metastatic foci from his lung cancer. But otherwise feels okay despite his severe illness. 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 Regional lymph node metastasis present Metastasis to liver Pain Cancer of lower lobe of right lung Nodule of parotid gland History of home oxygen therapy Cardiology follow-up encounter Gastric ulcer History of lung cancer Adrenal mass History of Parkinson's disease History of atrial fibrillation Hx of cancer of lung Pulmonary hypertension Emphysema, unspecified History of echocardiogram History of stress test Hypertension History of atrial fibrillation Hx of fracture of ankle COVID Chronic combined systolic and diastolic CHF (congestive heart failure) Severe pulmonary arterial systolic hypertension Wears glasses Uses wheelchair Walker as ambulation aid Ambulates with cane Arthritis Anemia Migraine headache Injury of head and neck Parkinson's disease Gastric reflux Former smoker BiPAP (biphasic positive airway pressure) dependence COPD (chronic obstructive pulmonary disease) On home oxygen therapy History of pain when walking History of edema Amputated great toe of left foot Amputation of one or more toes Chronic ulcer of left foot with fat layer exposed Hammer toe of left foot Toe osteomyelitis Right ventricular dilation, secondary Right ventricular systolic dysfunction Respiratory failure with hypoxia Diverticular disease Polyp of colon, adenomatous Chronic gastritis Multiple premature ventricular complexes Longstanding persistent atrial fibrillation Hyperlipidemia Acute kidney injury NSTEMI (non-ST elevated myocardial infarction) (12/02/19) Sepsis Gastric AVM Adenocarcinoma of lung, stage 1 GI bleed Iron deficiency anemia due to chronic blood loss Atherosclerosis of coronary artery of [place] heart without angina pectoris Cancer of upper lobe of left lung 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 Benign essential hypertension HEBER (obstructive sleep apnea) Dementia Parkinsons Essential tremor GERD (gastroesophageal reflux disease) Alcohol dependence Home Medications ?Medication ?Instructions ?Recorded ?Last Taken ?Type ferrous sulfate 325 mg (65 mg 65 mg PO DAILY supplement 02/01/19 04/09/25 History iron) tablet cholecalciferol (vitamin D3) 125 5,000 unit PO DAILY cholesterol 03/30/19 04/09/25 History mcg (5,000 unit) capsule peg [id number] 1 1 drp EACH EYE Q1H PRN DRY EYES #0 04/26/24 04/25/24 10:10 Rx %-0.2 %-0.2 % eye drops mL (Artificial Tears ([id number])) sodium chloride 0.65 % nasal spray 2 spray intranasal Q2H PRN dry 04/26/24 04/26/24 09:10 Rx aerosol (Nasal Moisturizing) nasal passages #50 mL acetaminophen 500 mg tablet 1,000 mg (2 x 500 mg) PO Q6H PRN 05/24/24 Unknown Rx PRN Pain Score 1-10 #0 tabs cyanocobalamin (vitamin B-12) 1,000 mcg IM QMONTH SUPPLEMENT 07/15/24 07/26/24 History 1,000 mcg/mL injection solution docusate sodium 100 mg capsule 100 mg PO BID constipation 07/15/24 04/09/25 History gabapentin 600 mg tablet 1,200 mg PO QHS pain 07/15/24 04/08/25 History metoprolol succinate 25 mg 25 mg PO QDAY htn 07/15/24 04/09/25 History tablet,extended release 24 hr oxygen-air delivery systems 07/15/24 Unknown History fluticasone fur. 100 mcg-umeclid 1 inh inhalation QDAY Asthma #60 ea 09/09/24 Unknown Rx 62.5 mcg-vilant 25 mcg inhalat.powder (Trelegy Ellipta) losartan 100 mg tablet 50 mg (1/2 x 100 mg) PO BID heart 10/25/24 04/09/25 Rx #90 tabs dapagliflozin propanediol 10 mg 10 mg PO QDAY DM 12/09/24 04/09/25 History tablet (Farxiga) furosemide 40 mg tablet (Lasix) 40 mg PO QDAY edema #90 tabs 01/25/25 04/09/25 Rx oxycodone 5 mg tablet 5 mg PO Q6H PRN pain 03/29/25 Unknown History cranberry fruit concentrate 250 mg 250 mg PO DAILY 04/09/25 Unknown History chewable tablet (Azo Cranberry) levothyroxine 50 mcg tablet 50 mcg PO DAILY 04/09/25 04/09/25 History omeprazole 40 mg capsule,delayed 40 mg PO BID 04/09/25 04/09/25 History release pramipexole 0.5 mg tablet 0.5 mg PO TID 04/09/25 04/09/25 History rosuvastatin 20 mg tablet (Crestor) 20 mg PO DAILY 04/09/25 04/08/25 History sucralfate 1 gram tablet 1 g PO TID 04/09/25 04/09/25 History sulfamethoxazole 800 1 tab PO BID 04/09/25 04/09/25 History mg-trimethoprim 160 mg tablet trazodone 50 mg tablet 50 mg PO QHS 04/09/25 04/08/25 History Allergy/AdvReac Type Severity Reaction Status Date / Time No Known Allergies Allergy Verified 03/30/25 16:00 Family History Sister Alcoholism Cancer Mother Arthritis Father Arthritis Brother Cancer Surgical History History of transurethral resection of prostate Hx of toe surgery SURGICAL REMOVAL LEFT GREAT TOE History of right and left heart catheterization (12/04/16) History of colonoscopy (03/22/20) History of esophagogastroduodenoscopy (03/22/20) History of left heart catheterization (2016) History of coronary artery stent placement (12/23/06) Status post insertion of iliac artery stent (08/04/12) Status post surgical removal of neoplasm of skin History of tonsillectomy and adenoidectomy History of hammer toe correction History of open reduction and internal fixation (ORIF) procedure History of open reduction and internal fixation (ORIF) procedure History of lobectomy of lung History of cardioversion (12/2016) H/O coronary artery bypass surgery (02/14/06) Social History household members: spouse Smoking Status: Former smoker quit date: 11/14/93 how long ago did patient quit smokin years ago second hand exposure: No alcohol intake: current alcohol intake frequency: holidays/special occasions only Alcohol type: wine substance use type: does not use caffeine: Yes Type: coffee Number of servings: 1 what type of physical activity do you participate in: none frequency: does not exercise seatbelt use: always ROS ROS Narrative Did develop a burn on his right buttocks from a heating pad during last hospitalization all review of systems were negative except as mentioned above in the history of present illness and the other review of systems. Vital Signs Vital Signs Vital Signs: 04/09/25 16:28 04/09/25 16:33 04/09/25 16:44 Temperature 37.7 C H 37.7 C H Temperature Source Oral Oral Pulse Rate 128 H 128 H Respiratory Rate 31 H 33 H Respiratory Effort Respiratory Pattern Blood Pressure 71/43 L 82/50 L Blood Pressure Mean 52 60 Pulse Ox 88 92 Oxygen Delivery Method Room Air Nasal Cannula Nasal Cannula Oxygen Flow Rate (L/min) 2 2 04/09/25 16:58 04/09/25 17:09 04/09/25 17:23 Temperature 39.4 C H Temperature Source Core Pulse Rate 130 H 119 H Respiratory Rate 29 H 22 H Respiratory Effort Short of Breath Respiratory Pattern Tachypnea Blood Pressure 79/51 L Blood Pressure Mean 60 Pulse Ox 93 Oxygen Delivery Method Nasal Cannula Oxygen Flow Rate (L/min) 2 04/09/25 17:35 Temperature 39.3 C H Temperature Source Core Pulse Rate 109 H Respiratory Rate 26 H Respiratory Effort Respiratory Pattern Blood Pressure 76/45 L Blood Pressure Mean 55 Pulse Ox 93 Oxygen Delivery Method Nasal Cannula Oxygen Flow Rate (L/min) 2 Weight Weight: 121.88 kg Body Mass Index (BMI) 38.5 Physical Exam Const alert and no apparent distress HEENT normocephalic, head/scalp atraumatic, hearing grossly normal bilaterally and moist oral mucous membranes HEENT Narrative: Mucous membranes dry Neck no lymphadenopathy and supple Resp normal respiratory effort and no retractions Cardio regular rate, regular rhythm, S1 normal heart sound and S2 normal heart sound GI normal to inspection, nondistended, normoactive bowel sounds, soft to palpation, non-tender and non-distended Extremity Extremity Narrative: Missing 1st or 3rd toe on left foot. The resection area is clean and intact without ulceration. Right buttocks has healing secondary burn. Scabbed over. No erythema. Skin Skin Narrative: Patient with port in his chest on the right side without any surrounding erythema. Has a midsternal sternotomy scar. Neuro moves all extremities Neuro Narrative: Weak voice but alert and appropriate and making jokes. Sensorium / Orientation: awake and alert Psych affect normal Results Lab / Micro Data 04/09/25 16:46 04/09/25 16:46 Labs: Laboratory Results - last 24 hr 04/09/25 16:46: WBC 31.7 H*, RBC 3.79 L, Hgb 10.0 L, Hct 32.4 L, MCV 85.5, MCH 26.4 L, MCHC 30.9 L, RDW Std Deviation 52.0 H, RDW Coeff of [place] 16.9 H, Plt Count 285, MPV 10.3, Immature Gran % (Auto) 1.200 H, Neut % (Auto) 89.1 H, Lymph % (Auto) 1.5 L, [place] % (Auto) 7.5, Eos % (Auto) 0.4, Baso % (Auto) 0.3, Absolute Neuts (auto) 28.3 H, Absolute Lymphs (auto) 0.48 L, Nucleated RBC % 0, PT 18.2 H, INR 1.5, APTT 32.4, Sodium 139, Potassium 4.0, Chloride 100, Carbon Dioxide 26.2, Anion Gap 12, BUN 38 H, Creatinine 2.26 H, Estim Creat Clear Calc 34.70 L, Est GFR (MDRD) Non-Af 29 L, BUN/Creatinine Ratio 16.7, Glucose 121 H, Lactic Acid 1.7, Calcium 9.0, Total Bilirubin 0.93, AST 39 H, ALT 32, Alkaline Phosphatase 371 H, Total Creatine Kinase 28, Troponin T High Sens 94 H* D, Total Protein 6.2, Albumin 3.0 L, Globulin 3.2, Albumin/Globulin Ratio 0.9 04/09/25 16:53: Urine Color Yellow, Urine Clarity Sl. Cloudy, Urine pH 6.0, Ur Specific [place] 1.015, Urine Protein 100 H, Urine Glucose (UA) 250 H, Urine Ketones Negative, Urine Occult Blood 25 H, Urine Nitrite Negative, Urine Bilirubin Negative, Urine Urobilinogen Normal, Ur Leukocyte Esterase 500 H, Urine RBC 0-5 SEEN, Urine WBC 25-50 SEEN, Ur Squamous Epith Cells 0-5 SEEN, Amorphous Sediment 2+, Urine Bacteria 2+, Urine Mucus 0 SEEN Micro: Microbiology 04/09/25 16:53 Mucosa - Nose SARS-CoV-2, Influenza & RSV (PCR) - Final ABG Data ABG results: ABG 04/09/25 17:02 Specimen Type ART Sample Site R Radial pH 7.39 Bicarbonate Actual 27.5 H Total CO2 29 Base Excess 3 H O2 Saturation 90 L O2 % 2.0 ABG pCO2 45.7 H ABG pO2 61 L John Test N/A O2 Delivery Device Cannula Vent Mode Not entered Rhythm Strip Rhythm Strip: A-fib Rate: 135 Ectopy: None Assessment & Plan Assessment/Plan (1) Septic shock: PLAN: Present on arrival. Refer to HPI for SIRS criteria. Also compounded by DELVIS. Patient received 30 cc/kg IV fluid and still was hypotensive and started on norepinephrine. Likely secondary to pneumonia. Urinalysis appears equivocal. Continue with antibiotics with pip-tazo and vancomycin. Follow-up cultures (2) Pneumonia: PLAN: Suspected gram-negative Check strep and Legionella antigens. Check sputum culture. Guaifenesin. Pulmonary toilet (3) DELVIS (acute kidney injury): PLAN: Present on admission. Creatinine 2.26 with a baseline around 1.76. Secondary to like dehydration and septic shock. Cannot rule out the possibility of this being iatrogenic as well with patient having been on Bactrim. Will continue with IV fluids after his 30 cc/kg of IV fluids and monitor. If worsening, consider additional studies including ultrasound and additional urine studies (4) Atrial fibrillation with RVR: PLAN: Likely reactive secondary to above. Overall his heart rate seems to be improved while is in the room is down to the low 100s. His metoprolol be held in light of his septic shock. If he does have refractory A-fib with RVR may need to consider amiodarone bolus and infusion. (5) Elevated troponin: PLAN: Likely demand ischemia secondary to septic shock, pneumonia and A-fib with RVR Patient had echo on January 26 that showed an EF of 55% Also compounded by his kidney disease and likely skewed upward slightly Will cycle to make sure there is no other acute issue PLAN: Plan Non-small cell lung cancer. Patient follows up with [place] [facility]. Patient was also to supposed to follow-up with Dr. Marcial for radiation on Friday but that will likely need to be missed given his current situation. Diabetes mellitus type 2: Sliding scale insulin Hypothyroidism: Continue levothyroxine Atrial fibrillation: Metoprolol held given septic shock. Not on anticoagulation Right gluteal skin burn secondary to a heating pad. This is a subsequent visit. The wound overall appears to be healing well. Continue with wound care and consult the wound nurse VTE prophylaxis with subcu heparin CODE STATUS: Addressed with the patient. Patient wishes to be full code. Case discussed with the patient's family at bedside Charges/Coding Visit Charges Inpatient E&M: 55833 Init Hosp L3
[2025-04-09 19:02] LABS: Differential Comment SCANNED
--- NOTE | 2025-04-09 20:24 | PCMCONS.TICU ---
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 Regional lymph node metastasis present Metastasis to liver Pain Cancer of lower lobe of right lung Nodule of parotid gland History of home oxygen therapy Cardiology follow-up encounter Gastric ulcer History of lung cancer Adrenal mass History of Parkinson's disease History of atrial fibrillation Hx of cancer of lung Pulmonary hypertension Emphysema, unspecified History of echocardiogram History of stress test Hypertension History of atrial fibrillation Hx of fracture of ankle COVID Chronic combined systolic and diastolic CHF (congestive heart failure) Severe pulmonary arterial systolic hypertension Wears glasses Uses wheelchair Walker as ambulation aid Ambulates with cane Arthritis Anemia Migraine headache Injury of head and neck Parkinson's disease Gastric reflux Former smoker BiPAP (biphasic positive airway pressure) dependence COPD (chronic obstructive pulmonary disease) On home oxygen therapy History of pain when walking History of edema Amputated great toe of left foot Amputation of one or more toes Chronic ulcer of left foot with fat layer exposed Hammer toe of left foot Toe osteomyelitis Right ventricular dilation, secondary Right ventricular systolic dysfunction Respiratory failure with hypoxia Diverticular disease Polyp of colon, adenomatous Chronic gastritis Multiple premature ventricular complexes Longstanding persistent atrial fibrillation Hyperlipidemia Acute kidney injury NSTEMI (non-ST elevated myocardial infarction) (12/02/19) Sepsis Gastric AVM Adenocarcinoma of lung, stage 1 GI bleed Iron deficiency anemia due to chronic blood loss Atherosclerosis of coronary artery of [place] heart without angina pectoris Cancer of upper lobe of left lung 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 Benign essential hypertension HEBER (obstructive sleep apnea) Dementia Parkinsons Essential tremor GERD (gastroesophageal reflux disease) Alcohol dependence Home Medications ?Medication ?Instructions ?Recorded ?Last Taken ?Type ferrous sulfate 325 mg (65 mg 65 mg PO DAILY supplement 02/01/19 04/09/25 History iron) tablet cholecalciferol (vitamin D3) 125 5,000 unit PO DAILY cholesterol 03/30/19 04/09/25 History mcg (5,000 unit) capsule peg [id number] 1 1 drp EACH EYE Q1H PRN DRY EYES #0 04/26/24 04/25/24 10:10 Rx %-0.2 %-0.2 % eye drops mL (Artificial Tears ([id number])) sodium chloride 0.65 % nasal spray 2 spray intranasal Q2H PRN dry 04/26/24 04/26/24 09:10 Rx aerosol (Nasal Moisturizing) nasal passages #50 mL acetaminophen 500 mg tablet 1,000 mg (2 x 500 mg) PO Q6H PRN 05/24/24 Unknown Rx PRN Pain Score 1-10 #0 tabs cyanocobalamin (vitamin B-12) 1,000 mcg IM QMONTH SUPPLEMENT 07/15/24 07/26/24 History 1,000 mcg/mL injection solution docusate sodium 100 mg capsule 100 mg PO BID constipation 07/15/24 04/09/25 History gabapentin 600 mg tablet 1,200 mg PO QHS pain 07/15/24 04/08/25 History metoprolol succinate 25 mg 25 mg PO QDAY htn 07/15/24 04/09/25 History tablet,extended release 24 hr oxygen-air delivery systems 07/15/24 Unknown History fluticasone fur. 100 mcg-umeclid 1 inh inhalation QDAY Asthma #60 ea 09/09/24 Unknown Rx 62.5 mcg-vilant 25 mcg inhalat.powder (Trelegy Ellipta) losartan 100 mg tablet 50 mg (1/2 x 100 mg) PO BID heart 10/25/24 04/09/25 Rx #90 tabs dapagliflozin propanediol 10 mg 10 mg PO QDAY DM 12/09/24 04/09/25 History tablet (Farxiga) furosemide 40 mg tablet (Lasix) 40 mg PO QDAY edema #90 tabs 01/25/25 04/09/25 Rx oxycodone 5 mg tablet 5 mg PO Q6H PRN pain 03/29/25 Unknown History cranberry fruit concentrate 250 mg 250 mg PO DAILY 04/09/25 Unknown History chewable tablet (Azo Cranberry) levothyroxine 50 mcg tablet 50 mcg PO DAILY 04/09/25 04/09/25 History omeprazole 40 mg capsule,delayed 40 mg PO BID 04/09/25 04/09/25 History release pramipexole 0.5 mg tablet 0.5 mg PO TID 04/09/25 04/09/25 History rosuvastatin 20 mg tablet (Crestor) 20 mg PO DAILY 04/09/25 04/08/25 History sucralfate 1 gram tablet 1 g PO TID 04/09/25 04/09/25 History sulfamethoxazole 800 1 tab PO BID 04/09/25 04/09/25 History mg-trimethoprim 160 mg tablet trazodone 50 mg tablet 50 mg PO QHS 04/09/25 04/08/25 History Allergy/AdvReac Type Severity Reaction Status Date / Time No Known Allergies Allergy Verified 03/30/25 16:00 Family History Sister Alcoholism Cancer Mother Arthritis Father Arthritis Brother Cancer Surgical History History of transurethral resection of prostate Hx of toe surgery SURGICAL REMOVAL LEFT GREAT TOE History of right and left heart catheterization (12/04/16) History of colonoscopy (03/22/20) History of esophagogastroduodenoscopy (03/22/20) History of left heart catheterization (2016) History of coronary artery stent placement (12/23/06) Status post insertion of iliac artery stent (08/04/12) Status post surgical removal of neoplasm of skin History of tonsillectomy and adenoidectomy History of hammer toe correction History of open reduction and internal fixation (ORIF) procedure History of open reduction and internal fixation (ORIF) procedure History of lobectomy of lung History of cardioversion (12/2016) H/O coronary artery bypass surgery (02/14/06) Social History household members: spouse Smoking Status: Former smoker quit date: 11/14/93 how long ago did patient quit smokin years ago second hand exposure: No alcohol intake: current alcohol intake frequency: holidays/special occasions only Alcohol type: wine substance use type: does not use caffeine: Yes Type: coffee Number of servings: 1 what type of physical activity do you participate in: none frequency: does not exercise seatbelt use: always Objective Data Objective Data Vital Signs: Vital Signs Last response Temperature 38.1 C H 04/09/25 19:43 Temperature Source Core 04/09/25 17:35 Pulse Rate 113 H 04/09/25 19:43 Respiratory Rate 25 H 04/09/25 19:43 Respiratory Effort Short of Breath 04/09/25 17:09 Respiratory Pattern Tachypnea 04/09/25 17:09 Blood Pressure 95/60 04/09/25 19:43 Blood Pressure Mean 71 04/09/25 19:43 Pulse Ox 93 04/09/25 19:43 Oxygen Delivery Method Nasal Cannula 04/09/25 17:35 Oxygen Flow Rate (L/min) 2 04/09/25 17:35 I&O: I&O Last 24 Hours 04/08/25 04/09/25 04/09/25 23:59 11:59 23:59 Intake Total 2469.08 / 2469.08 Balance 2469.08 / 2469.08 I&O: Total Stay 04/09/25 16:21 thru 04/09/25 19:53 Intake Total 2469.08 Balance 2469.08 Current Meds Ordered / Administered: Current meds ordered / Administered Generic Name Dose Route Start Last Admin Trade Name Freq PRN Reason Stop Dose Admin Acetaminophen 1,000 mg 04/09/25 19:58 Acetaminophen 500 Mg Tablet PO Q6H PRN PRN Pain Score 1-10 Albuterol/Ipratropium 3 ml 04/09/25 22:00 Ipratropium/Albuterol Sulfate 3 Ml Ampul.Neb INHALATION Q6HWA.RT [facility] Atorvastatin Calcium 40 mg 04/09/25 22:00 Atorvastatin Calcium 40 Mg Tablet PO QHS NATALIE Budesonide 0.5 mg 04/09/25 22:00 Budesonide Respules 0.5 Mg/2 Ml Ampul.Neb. INHALATION Q12H.RT [facility] Docusate Sodium 100 mg 04/09/25 22:00 Docusate Sodium 100 Mg Capsule PO BID NATALIE Ferrous Sulfate 325 mg 04/10/25 12:00 Ferrous Sulfate 325 Mg Tablet PO DAILY@1200 [facility] Glucagon 1 mg 04/09/25 19:58 Glucagon 1 Mg/Ml Syringe IM X1 PRN Hypoglycemia Protocol Glycerin/Hypromellose/Polyethylene 1 drp 04/09/25 19:58 Glycerin/Hypromellose/Vve135 15 Ml Bottle EACH EYE Q1H PRN PRN DRY EYES Guaifenesin 600 mg 04/09/25 22:00 Guaifenesin 600 Mg Tablet PO BID [facility] Heparin Sodium (Porcine) 5,000 unit 04/09/25 22:00 Heparin Injection (Vial) 5,000 Unit/Ml Vial SC Q12 [facility] Hydrocortisone Sodium Succinate 100 mg 04/10/25 00:00 Hydrocortisone Sod Succinate 100 Mg/2 Ml Vial IV Q6 [facility] Norepinephrine Bitartrate 8 mg in 250 mls @ 9.375 mls/hr 04/09/25 18:30 04/09/25 19:53 CONT INF 10 mcg/min .[id number] [facility] 18.8 mls/hr Protocol Titration 5 MCG/MIN Sodium Chloride 1,000 mls @ 150 mls/hr 04/09/25 19:58 IV 04/10/25 02:37 .Q6H40M [facility] Piperacillin Sod/Tazobactam 50 mls @ 12.5 mls/hr 04/09/25 22:00 Sod 3.375 gm/ Sodium Chloride IV Q8 [facility] Vancomycin IV-PHARMACY TO DOSE 500 mls @ 250 mls/hr 04/09/25 19:58 1 each/ Sodium Chloride IV PRN PRN Rx to Dose Protocol Dextrose 250 mls @ 0 mls/hr 04/09/25 19:58 Dextrose 10%-Water IV .Q0M PRN HYPOGLYCEMIA Protocol As Directed Vancomycin HCl 2,000 mg/ 540 mls @ 250 mls/hr 04/09/25 20:30 Sodium Chloride IV 04/09/25 22:39 X1 ONE Albumin Human 25 gm in 100 mls @ 60 mls/hr 04/09/25 22:00 IV 04/10/25 03:39 Q4 [facility] Insulin Human Lispro 0 unit 04/09/25 22:00 Insulin Lispro 100 Unit/Ml Insuln.Pen SC ACHS [facility] Protocol Levothyroxine Sodium 50 mcg 04/10/25 06:00 Levothyroxine 50 Mcg Tablet PO DAILY@0600 [facility] Ondansetron HCl 4 mg 04/09/25 19:58 Ondansetron 4 Mg/2 Ml Vial IV Q8H PRN PRN NAUSEA/VOMITING Oxycodone HCl 5 mg 04/09/25 19:58 Oxycodone 5 Mg Tablet PO Q6H PRN PRN pain 1-10 Pantoprazole Sodium 40 mg 04/09/25 22:00 Pantoprazole Sodium 40 Mg Tablet PO BID [facility] Pramipexole Dihydrochloride 0.5 mg 04/09/25 22:00 Pramipexole Di-Hcl 0.5 Mg Tablet PO TID [facility] Sodium Chloride 2 spray 04/09/25 19:58 Sodium Chloride 0.65% 1 [place].Btl NASAL Q2H PRN PRN dry nasal passages Sucralfate 1 gm 04/10/25 07:00 Sucralfate 1 Gm Tablet PO TID@0700,1100,1600 [facility] Trazodone HCl 50 mg 04/09/25 22:00 Trazodone 50 Mg Tablet PO QHS [facility] Lab / Micro Data 04/09/25 16:46 04/09/25 16:46 Labs: Laboratory Results - last 24 hr 04/09/25 16:46: WBC 31.7 H*, RBC 3.79 L, Hgb 10.0 L, Hct 32.4 L, MCV 85.5, MCH 26.4 L, MCHC 30.9 L, RDW Std Deviation 52.0 H, RDW Coeff of Iram 16.9 H, Plt Count 285, MPV 10.3, Immature Gran % (Auto) 1.200 H, Neut % (Auto) 89.1 H, Lymph % (Auto) 1.5 L, [place] % (Auto) 7.5, Eos % (Auto) 0.4, Baso % (Auto) 0.3, Absolute Neuts (auto) 28.3 H, Absolute Lymphs (auto) 0.48 L, Nucleated RBC % 0, Differential Comment SCANNED, Platelet Estimate ADEQUATE, PT 18.2 H, INR 1.5, APTT 32.4, Sodium 139, Potassium 4.0, Chloride 100, Carbon Dioxide 26.2, Anion Gap 12, BUN 38 H, Creatinine 2.26 H, Estim Creat Clear Calc 34.70 L, Est GFR (MDRD) Non-Af 29 L, BUN/Creatinine Ratio 16.7, Glucose 121 H, Lactic Acid 1.7, Calcium 9.0, Total Bilirubin 0.93, AST 39 H, ALT 32, Alkaline Phosphatase 371 H, Total Creatine Kinase 28, Troponin T High Sens 94 H* D, Total Protein 6.2, Albumin 3.0 L, Globulin 3.2, Albumin/Globulin Ratio 0.9 04/09/25 16:53: Urine Color Yellow, Urine Clarity Sl. Cloudy, Urine pH 6.0, Ur Specific [place] 1.015, Urine Protein 100 H, Urine Glucose (UA) 250 H, Urine Ketones Negative, Urine Occult Blood 25 H, Urine Nitrite Negative, Urine Bilirubin Negative, Urine Urobilinogen Normal, Ur Leukocyte Esterase 500 H, Urine RBC 0-5 SEEN, Urine WBC 25-50 SEEN, Ur Squamous Epith Cells 0-5 SEEN, Amorphous Sediment 2+, Urine Bacteria 2+, Urine Mucus 0 SEEN Micro: Microbiology 04/09/25 16:53 Mucosa - Nose SARS-CoV-2, Influenza & RSV (PCR) - Final ABG Data ABG results: ABG 04/09/25 17:02 Specimen Type ART Sample Site R Radial pH 7.39 Bicarbonate Actual 27.5 H Total CO2 29 Base Excess 3 H O2 Saturation 90 L O2 % 2.0 ABG pCO2 45.7 H ABG pO2 61 L John Test N/A O2 Delivery Device Cannula Vent Mode Not entered Rhythm Strip Rhythm Strip: A-fib Rate: 135 Ectopy: None Assessment and Plan . Assessment and plan: HPI 79 yo obese chronically ill and debilitated man admitted 04/09/25 w/ fever and sepsis syndrome. He has advanced NSCLC - unclear what if any treatment he is currently receiving. He was recently discharged from this facility - treated for UTI w/ ABX. He presents now w/ fever and malaise. Noted fever, tachycardia, low BP in the ED. He required O2 via N/C. He received IVF and empiric ABX after CX obtained. pCXR reveals stable and chronic findings. UA reveals pyuria. Lab significant for elevated creatinine. LA is WNL. ABG reveals adequate gas exchange. He required NE infusion in the ED for BP support. He is currently in ICU. He is hypoactive, but responds to questions. NE infusing for BP. HR 100 BPM - irregular. Breathing 2 LPM O2 w/ some increased WOB. UOP is sluggish. EXAM GEN appears ill VS as above HEENT O2 N/C NECK obese COR irreg CHEST diminished ABD obese, soft EXT dependent edema SKIN w/d PRISCILA grossly NF - hypoactive IMPRESSION/PLAN 1. Severe sepsis 2. Hypotension 3. Pyuria 4. Renal insufficiency w/ oliguria 5. Obesity 6. Advanced NSCLC 7. Delirium / encephalopathy 8. Chronic AF 9. h/o COPD, PH w/ LE edema 10. Debility -supplemental O2 - if needed for WOB, support w/ NIV -follow BEHAVIORIST clinically -volume expansion - will require diuresis once more stable -IV hydrocortisone -ABX - f/u CX -inhaled BD -HR control as needed -wean NE as able -follow UOP, renal function -prognosis guarded Critical Care Time: 60 minutes The entirety of this encounter was done via Telemedicine
[2025-04-09 20:47] LABS: Troponin T High Sens 2 HR 93 ng/L (<=22)
--- NOTE | 2025-04-09 20:47 | NURSING ---
2045- requested reflux lactic label be sent to ICU as it did not get drawn in ER, was informed by labor standards director that they spoke to someone in ER and it was cancelled as it was in normal range initially.
[2025-04-09] MEDS: Vancomycin HCl 2,000 MG in 0.9% Normal Saline (500mL Bag) 500 ML 250 MG IV (20:58)
[2025-04-09] MEDS: 0.9% Normal Saline (1000mL) 1,000 ML 150 ML IV (20:58)
[2025-04-09] MEDS: 0.9% Saline Lock 10 ML Syringe IV ×3 (20:58→23:02)
[2025-04-09] MEDS: Albumin Human 25% (100 mL) 25 GM/100 ML BAG IV (21:18)
[2025-04-09] MEDS: Heparin Injection (Vial) 5,000 UNIT/ML VIAL 5000 UNIT SC (21:19)
--- NOTE | 2025-04-09 21:47 | PCM.RX.CS ---
Consult Antibiotic Management Pharmacy has been consulted to manage selected antibiotic: Vancomycin Type of Intervention Type of Consult: New start Suspected Infection Suspected Infection: Sepsis and Pneumonia Labs Labs: Sodium 139 mmol/L (133-145) 04/09/25 16:46 Potassium 4.0 mmol/L (3.3-5.1) 04/09/25 16:46 Chloride 100 mmol/L (98-108) 04/09/25 16:46 Carbon Dioxide 26.2 mmol/L (21.0-32.0) 04/09/25 16:46 Anion Gap 12 (5-15) 04/09/25 16:46 BUN 38 mg/dL (4-19) H 04/09/25 16:46 Creatinine 2.26 mg/dL (0.70-1.20) H 04/09/25 16:46 Est GFR (MDRD) Non-Af 29 (>60) L 04/09/25 16:46 BUN/Creatinine Ratio 16.7 RATIO (10-20) 04/09/25 16:46 Glucose 121 mg/dL (70-99) H 04/09/25 16:46 Microbiology Microbiology: Microbiology 04/09/25 16:53 Urine Catheter - [place] Legionella Antigen - Final 04/09/25 16:53 Urine Catheter - [place] Streptococcus pneumoniae Antigen (M - Final 04/09/25 16:53 Mucosa - Nose SARS-CoV-2, Influenza & RSV (PCR) - Final Dosing Weight Weight used for dosin kg Estimated Creatinine Clearance Estimated Creatinine Clearance: 35 Goal Trough Goal Trough: 15-20 mcg/mL Pharmacy Plan for Drug Dosing Pharmacy Plan for Drug Dosing: Pharmacy Service will continue to monitor and adjust dosing as required. Follow-Up Labs Follow-Up Labs: Trough: Vancomycin Date/Time Labs Ordered Labs to be done on [date and time ordered]: 04/11/25 @2030
[2025-04-09 22:21] LABS: Troponin T High Sens 4 HR 106 ng/L (<=22)
[2025-04-09] MEDS: Piperacil/Tazobactam 3.375 GM in 0.9% Normal Saline (50mL MB+) 50 ML IV (23:00)
[2025-04-10] VITALS (21 sets, daily range): BP systolic 95–137; BP diastolic 49–78; PULSE 60–110; RESP 16–26; TEMP 35.7–36.4; O2SAT 92–100; BMI 38.2
[2025-04-10] MEDS: Albumin Human 25% (100 mL) 25 GM/100 ML BAG IV (00:07)
[2025-04-10] MEDS: 0.9% Saline Lock 10 ML Syringe IV ×4 (00:07→23:01)
--- NOTE | 2025-04-10 04:20 | RAD_ITS ---
PROCEDURE: RAD/Chest 1 View
[2025-04-10 04:52] LABS: Hematocrit 29.4 % (40-54); Hemoglobin 9.0 g/dL (13.0-16.5); Mean Corp Hgb Conc 30.6 g/dL (32-36); Mean Corpuscular Volume 87.0 fL (80-94); Mean Platelet Vol. 10.5 fl (6.2-12.0); POSITIVE COUNT YES; POSITIVE DIFFERENTIAL YES; POSITIVE MORPHOLOGY YES; Platelet Count 238 K/mm3 (150-450); RBC Distribution Width CV 16.9 % (11.6-14.6); RBC Distribution Width SD 53.6 fl (35.1-43.9); Red Blood Count 3.38 M/mm3 (4.6-6.2)
[2025-04-10 05:15] LABS: Differential Indicated MANUAL DIFF; White Blood Count 32.1 K/mm3 (4.4-11.0)
[2025-04-10 05:17] LABS: Pro- Brain NATRIURETIC PEPTIDE 17974 pg/mL (<=1800)
[2025-04-10 05:18] LABS: AST(SGOT) 41 U/L (<=37); Alanine Aminotransfer ALT/SGPT 26 U/L (<=46); Albumin, Serum 3.2 g/dL (3.4-4.8); Alkaline Phosphatase 311 U/L (40-129); Anion Gap 11 (5-15); BUN 36 mg/dL (4-19); BUN/Creat Ratio 17.2 RATIO (10-20); Calcium,Total 7.9 mg/dL (7.6-11.0); Carbon Dioxide 23.0 mmol/L (21.0-32.0); Chloride 106 mmol/L (98-108); Estimated Creatinine Clearance 38.20 ml/min (50-250); Globulin 2.6 g/dL (2.2-4.2); Glucose 147 mg/dL (70-99); Potassium 4.2 mmol/L (3.3-5.1)
[2025-04-10 06:04] LABS: Neutrophil-Segmented 99 % (47-70); Total Cells Counted 100 (MANUAL DIFF)
[2025-04-10 06:07] LABS: Anisocytosis 1+; Polychromasia 1+
[2025-04-10 06:08] LABS: Target Cells RARE
[2025-04-10] MEDS: Piperacil/Tazobactam 3.375 GM in 0.9% Normal Saline (50mL MB+) 50 ML IV ×3 (06:09→22:56)
[2025-04-10] MEDS: Budesonide Respules 0.5 MG/2 ML AMPUL.NEB. INHALATION ×2 (07:12→19:21)
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
--- NOTE | 2025-04-10 07:35 | PN.HOSP_ITS ---
Reason for Visit
[2025-04-10] MEDS: Heparin Injection (Vial) 5,000 UNIT/ML VIAL 5000 UNIT SC ×2 (07:55→20:50)
--- NOTE | 2025-04-10 10:47 | ECHOLC_ITS ---
Reason For Study ECHO/Echo Limited w/Contrast
--- NOTE | 2025-04-10 12:41 | PCM.PN.TICU ---
Objective Data Objective Data Vital Signs: Vital Signs Last response Temperature 36.4 C L 04/10/25 11:00 Temperature Source Core 04/10/25 11:00 Pulse Rate 73 04/10/25 12:00 Pulse Strength Weak (1+) 04/10/25 08:11 Respiratory Rate 24 H 04/10/25 12:00 Respiratory Effort Normal, Non-Labored 04/10/25 11:53 Respiratory Depth Normal 04/10/25 11:53 Respiratory Pattern Normal 04/10/25 11:53 Blood Pressure 107/51 L 04/10/25 12:00 Blood Pressure Mean 69 04/10/25 12:00 Blood Pressure Source Monitor 04/10/25 12:00 Blood Pressure Position Sitting 04/10/25 12:00 Blood Pressure Location Left Arm 04/10/25 12:00 Pulse Ox 92 04/10/25 12:00 Oxygen Delivery Method Nasal Cannula 04/10/25 12:00 Oxygen Flow Rate (L/min) 4 04/10/25 12:00 I&O: I&O Last 24 Hours 04/09/25 04/10/25 04/10/25 23:59 11:59 23:59 Intake Total 3799.80 / 3804.50 1339.45 / 1339.45 Output Total 175 / 175 475 / 475 Balance 3624.80 / 3629.50 864.45 / 864.45 I&O: Total Stay 04/09/25 16:21 thru 04/10/25 10:29 Intake Total 5139.25 Output Total 650 Balance 4489.25 Current Meds Ordered / Administered: Current meds ordered / Administered Generic Name Dose Route Start Last Admin Trade Name Freq PRN Reason Stop Dose Admin Acetaminophen 1,000 mg 04/09/25 19:58 Acetaminophen 500 Mg Tablet PO Q6H PRN PRN Pain Score 1-10 Albuterol/Ipratropium 3 ml 04/09/25 22:00 04/10/25 07:12 Ipratropium/Albuterol Sulfate 3 Ml Ampul.Neb INHALATION 3 ml Q6HWA.RT NATALIE Administration Atorvastatin Calcium 40 mg 04/09/25 22:00 04/09/25 21:08 Atorvastatin Calcium 40 Mg Tablet PO Not Given QHS NATALIE Budesonide 0.5 mg 04/09/25 22:00 04/10/25 07:12 Budesonide Respules 0.5 Mg/2 Ml Ampul.Neb. INHALATION 0.5 mg Q12H.RT NATALIE Administration Docusate Sodium 100 mg 04/09/25 22:00 04/10/25 07:54 Docusate Sodium 100 Mg Capsule PO 100 mg BID NATALIE Administration Ferrous Sulfate 325 mg 04/10/25 12:00 04/10/25 11:11 Ferrous Sulfate 325 Mg Tablet PO 325 mg DAILY@1200 NATALIE Administration Glucagon 1 mg 04/09/25 19:58 Glucagon 1 Mg/Ml Syringe IM X1 PRN Hypoglycemia Protocol Glycerin/Hypromellose/Polyethylene 1 drp 04/09/25 19:58 Glycerin/Hypromellose/Pxc401 15 Ml Bottle EACH EYE Q1H PRN PRN DRY EYES Guaifenesin 600 mg 04/09/25 22:00 04/10/25 07:54 Guaifenesin 600 Mg Tablet PO 600 mg BID NATALIE Administration Heparin Sodium (Porcine) 5,000 unit 04/09/25 22:00 04/10/25 07:55 Heparin Injection (Vial) 5,000 Unit/Ml Vial SC 5,000 unit Q12 NATALIE Administration Hydrocortisone Sodium Succinate 100 mg 04/09/25 20:45 04/10/25 12:15 Hydrocortisone Sod Succinate 100 Mg/2 Ml Vial IV 100 mg Q6 NATALIE Administration Piperacillin Sod/Tazobactam 50 mls @ 12.5 mls/hr 04/09/25 22:00 04/10/25 10:29 Sod 3.375 gm/ Sodium Chloride IV Infused Q8 NATALIE Infusion Vancomycin IV-PHARMACY TO DOSE 500 mls @ 250 mls/hr 04/09/25 19:58 1 each/ Sodium Chloride IV PRN PRN Rx to Dose Protocol Dextrose 250 mls @ 0 mls/hr 04/09/25 19:58 Dextrose 10%-Water IV .Q0M PRN HYPOGLYCEMIA Protocol As Directed Sodium Chloride 250 mls @ 15 mls/hr 04/09/25 20:25 IV .[id number] PRN Saline Flush Sodium Chloride 250 mls @ 15 mls/hr 04/09/25 20:25 IV .[id number] PRN Additional IVPB Infusion Vancomycin HCl 1,500 mg/ 530 mls @ 250 mls/hr 04/10/25 21:00 Sodium Chloride IV Q24H NATALIE Norepinephrine Bitartrate 8 mg 250 mls @ 9.375 mls/hr 04/10/25 02:45 04/10/25 03:03 / Sodium Chloride CONT INF Not Given .[id number] [facility] Protocol 5 MCG/MIN Insulin Human Lispro 0 unit 04/09/25 22:00 04/10/25 11:15 Insulin Lispro 100 Unit/Ml Insuln.Pen SC 1 u ACHS [facility] Administration Protocol Levothyroxine Sodium 50 mcg 04/10/25 06:00 04/10/25 06:09 Levothyroxine 50 Mcg Tablet PO 50 mcg DAILY@0600 [facility] Administration Nutritional Formula (Lactose Free) 120 ml 04/10/25 10:00 04/10/25 10:29 Glucerna Shake 120 Ml Liquid PO Not Given 4X/DAY [facility] Ondansetron HCl 4 mg 04/09/25 19:58 Ondansetron 4 Mg/2 Ml Vial IV Q8H PRN PRN NAUSEA/VOMITING Oxycodone HCl 5 mg 04/09/25 19:58 Oxycodone 5 Mg Tablet PO Q6H PRN PRN pain 1-10 Pantoprazole Sodium 40 mg 04/09/25 22:00 04/10/25 07:54 Pantoprazole Sodium 40 Mg Tablet PO 40 mg BID [facility] Administration Pramipexole Dihydrochloride 0.5 mg 04/09/25 22:00 04/10/25 06:09 Pramipexole Di-Hcl 0.5 Mg Tablet PO 0.5 mg TID [facility] Administration Sodium Chloride 2 spray 04/09/25 19:58 Sodium Chloride 0.65% 1 [place] Paris.Btl NASAL Q2H PRN PRN dry nasal passages Sodium Chloride 10 - 40 ml 04/09/25 20:25 04/10/25 06:09 0.9% Saline Lock 10 Ml Syringe IV 10 ml UD PRN Administration SALINE FLUSH Sucralfate 1 gm 04/10/25 07:00 04/10/25 11:10 Sucralfate 1 Gm Tablet PO 1 gm TID@0700,1100,1600 [facility] Administration Trazodone HCl 50 mg 04/09/25 22:00 04/09/25 21:00 Trazodone 50 Mg Tablet PO Not Given QHS [facility] Vancomycin Protocol 1 lab 04/11/25 19:30 Vancomycin Trough/Random Due MC 04/11/25 21:30 DAILY [facility] Lab / Micro Data 04/10/25 04:31 04/10/25 04:31 Labs: Laboratory Results - last 24 hr 04/09/25 16:46: WBC 31.7 H*, RBC 3.79 L, Hgb 10.0 L, Hct 32.4 L, MCV 85.5, MCH 26.4 L, MCHC 30.9 L, RDW Std Deviation 52.0 H, RDW Coeff of Iram 16.9 H, Plt Count 285, MPV 10.3, Immature Gran % (Auto) 1.200 H, Neut % (Auto) 89.1 H, Lymph % (Auto) 1.5 L, Elliott % (Auto) 7.5, Eos % (Auto) 0.4, Baso % (Auto) 0.3, Absolute Neuts (auto) 28.3 H, Absolute Lymphs (auto) 0.48 L, Nucleated RBC % 0, Differential Comment SCANNED, Platelet Estimate ADEQUATE, PT 18.2 H, INR 1.5, APTT 32.4, Sodium 139, Potassium 4.0, Chloride 100, Carbon Dioxide 26.2, Anion Gap 12, BUN 38 H, Creatinine 2.26 H, Estim Creat Clear Calc 34.70 L, Est GFR (MDRD) Non-Af 29 L, BUN/Creatinine Ratio 16.7, Glucose 121 H, Lactic Acid 1.7, Calcium 9.0, Total Bilirubin 0.93, AST 39 H, ALT 32, Alkaline Phosphatase 371 H, Total Creatine Kinase 28, Troponin T High Sens 94 H* D, Total Protein 6.2, Albumin 3.0 L, Globulin 3.2, Albumin/Globulin Ratio 0.9 04/09/25 16:53: Urine Color Yellow, Urine Clarity Sl. Cloudy, Urine pH 6.0, Ur Specific Hastings 1.015, Urine Protein 100 H, Urine Glucose (UA) 250 H, Urine Ketones Negative, Urine Occult Blood 25 H, Urine Nitrite Negative, Urine Bilirubin Negative, Urine Urobilinogen Normal, Ur Leukocyte Esterase 500 H, Urine RBC 0-5 SEEN, Urine WBC 25-50 SEEN, Ur Squamous Epith Cells 0-5 SEEN, Amorphous Sediment 2+, Urine Bacteria 2+, Urine Mucus 0 SEEN 04/09/25 19:17: Troponin T Hi Sens 2 Hr 93 H* 04/09/25 21:06: POC Glucose 117 H 04/09/25 21:40: Troponin T Hi Sens 4Hr 106 H* 04/10/25 04:31: WBC 32.1 H*, RBC 3.38 L, Hgb 9.0 L, Hct 29.4 L, MCV 87.0, MCH 26.6 L, MCHC 30.6 L, RDW Std Deviation 53.6 H, RDW Coeff of Iram 16.9 H, Plt Count 238, MPV 10.5, Neut % (Auto) Not Reportable, Absolute Neuts (auto) 31.8 H, Absolute Lymphs (auto) 0.32 L, Total Counted 100, Neutrophils % (Manual) 99 H, Lymphocytes % (Manual) 1 L, Platelet Estimate ADEQUATE, Polychromasia 1+, Anisocytosis 1+, Target Cells RARE, Ovalocytes 1+, Sodium 140, Potassium 4.2, Chloride 106, Carbon Dioxide 23.0, Anion Gap 11, BUN 36 H, Creatinine 2.06 H, Estim Creat Clear Calc 38.20 L, Est GFR (MDRD) Non-Af 32 L, BUN/Creatinine Ratio 17.2, Glucose 147 H, Calcium 7.9, Total Bilirubin 1.07, AST 41 H, ALT 26, Alkaline Phosphatase 311 H, [place] [address] H, Total Protein 5.8 L, Albumin 3.2 L, Globulin 2.6, Albumin/Globulin Ratio 1.2 Micro: Microbiology 04/09/25 16:53 Urine, Catheterized Urine Culture - Preliminary Alpha hemolytic organism 04/09/25 16:53 Urine Catheter - Savage Legionella Antigen - Final 04/09/25 16:53 Urine Catheter - Savage Streptococcus pneumoniae Antigen (M - Final 04/09/25 16:53 Mucosa - Nose SARS-CoV-2, Influenza & RSV (PCR) - Final ABG Data ABG results: ABG 04/09/25 17:02 Specimen Type ART Sample Site R Radial pH 7.39 Bicarbonate Actual 27.5 H Total CO2 29 Base Excess 3 H O2 Saturation 90 L O2 % 2.0 ABG pCO2 45.7 H ABG pO2 61 L John Test N/A O2 Delivery Device Cannula Vent Mode Not entered Rhythm Strip Rhythm Strip: A-fib Rate: 135 Ectopy: None Imaging Radiology Impression Chest X-Ray 04/09/25 16:41 IMPRESSION: 1. Mild cardiomegaly and mild pulmonary vascular congestion. 2. Slightly decreased bibasilar airspace opacities. [facility] 04/10/25 04:20 IMPRESSION: Unremarkable median sternotomy wires. Right Port-A-Cath is in good position with its tip in the superior vena cava. Mild central pulmonary venous congestion. There is no demonstrated pleural abnormality. Enlarged cardiac silhouette. [facility] Assessment and Plan . Assessment and plan: HPI 79 yo obese chronically ill and debilitated man admitted 04/09/25 w/ fever and sepsis syndrome. He has advanced NSCLC - unclear what if any treatment he is currently receiving. He was recently discharged from this facility - treated for UTI w/ ABX. He presents now w/ fever and malaise. Noted fever, tachycardia, low BP in the ED. He required O2 via N/C. He received IVF and empiric ABX after CX obtained. pCXR reveals stable and chronic findings. UA reveals pyuria. Lab significant for elevated creatinine. LA is WNL. ABG reveals adequate gas exchange. He required NE infusion in the ED for BP support. He is currently in ICU. He is hypoactive, but responds to questions. NE infusing for BP. HR 100 BPM - irregular. Breathing 2 LPM O2 w/ some increased WOB. UOP is sluggish. 04/10/25 He is more animated today - looks much better HR improved O2 4 LPM - comfortable NE is off UOP improved UCX reveals enterococcus EXAM GEN NAD VS as above HEENT O2 N/C NECK obese COR irreg CHEST diminished ABD obese, soft EXT dependent edema SKIN w/d PRISCILA grossly NF IMPRESSION/PLAN 1. Severe sepsis 2. Hypotension - RESOLVED 3. Pyuria / UTI 4. Renal insufficiency w/ oliguria - IMPROVED 5. Obesity 6. Advanced NSCLC - apparently receiving palliative therapy 7. Delirium / encephalopathy - IMPROVED 8. Chronic AF 9. h/o COPD, PH w/ LE edema 10. Debility -supplemental O2 - if needed for WOB, support w/ NIV -follow [employer] clinically -s/p volume expansion - will likely require diuresis once more stable -IV hydrocortisone -ABX - f/u final CX -inhaled BD -HR control as needed -follow UOP, renal function -prognosis guarded - needs care planning Critical Care Time: 50 minutes The entirety of this encounter was done via Telemedicine
[2025-04-10] MEDS: Glucerna Shake 120 ML LIQUID PO ×2 (13:34→21:11)
[2025-04-10] MEDS: Vancomycin HCl 1,500 MG in 0.9% Normal Saline (500mL Bag) 500 ML 250 MG IV (20:46)
[2025-04-11] VITALS (19 sets, daily range): BP systolic 103–136; BP diastolic 53–86; PULSE 55–110; RESP 15–26; TEMP 35.6–36.4; O2SAT 95–100; BMI 39.1
[2025-04-11] MEDS: 0.9% Saline Lock 10 ML Syringe IV (05:32)
[2025-04-11] MEDS: Piperacil/Tazobactam 3.375 GM in 0.9% Normal Saline (50mL MB+) 50 ML IV (05:32)
[2025-04-11 06:05] LABS: Hematocrit 28.2 % (40-54); Hemoglobin 8.7 g/dL (13.0-16.5); Immature Granulocytes Count 0.310 X10^3/uL (0.0-0.0); Mean Corp Hgb Conc 30.9 g/dL (32-36); Mean Corpuscular Volume 86.5 fL (80-94); Mean Platelet Vol. 10.5 fl (6.2-12.0); NRBC Flagged by Analyzer 0 % (0-5); POSITIVE DIFFERENTIAL YES; Platelet Count 200 K/mm3 (150-450); RBC Distribution Width CV 16.9 % (11.6-14.6); RBC Distribution Width SD 53.0 fl (35.1-43.9); Red Blood Count 3.26 M/mm3 (4.6-6.2); White Blood Count 23.6 K/mm3 (4.4-11.0)
[2025-04-11 06:21] LABS: Anion Gap 11 (5-15); BUN 37 mg/dL (4-19); BUN/Creat Ratio 20.2 RATIO (10-20); Calcium,Total 8.5 mg/dL (7.6-11.0); Carbon Dioxide 24.0 mmol/L (21.0-32.0); Chloride 107 mmol/L (98-108); Estimated Creatinine Clearance 43.26 ml/min (50-250); Glucose 176 mg/dL (70-99); Potassium 3.7 mmol/L (3.3-5.1)
[2025-04-11 07:01] LABS: Differential Indicated SCAN CRITERIA MET
[2025-04-11] MEDS: Budesonide Respules 0.5 MG/2 ML AMPUL.NEB. INHALATION ×2 (07:22→18:55)
--- NOTE | 2025-04-11 07:42 | PN.HOSP_ITS ---
Reason for Visit
--- NOTE | 2025-04-11 07:42 | PCM.PN.HOSP ---
Reason for Visit Chief Complaint: Fever Subjective Subjective Patient is a 79-year-old gentleman with multiple comorbidities presented with fever patient was found to be hypotensive and assessment of septic shock secondary to pneumonia made admitted to the intensive care unit for further management Objective Data Objective Data Vital Signs: Vital Signs Temp Pulse Resp BP Pulse Ox O2 Del Method O2 Flow Rate 96.9 F L 68 23 H 130/60 H 100 Nasal Cannula 4 04/11/25 06:00 04/11/25 06:00 04/11/25 06:00 04/11/25 06:00 04/11/25 06:00 04/11/25 06:00 04/11/25 06:00 Oxygen Flow Rate (L/min) 4 Oxygen Delivery Method Nasal Cannula Weight: 125.4 kg Body Mass Index (BMI) 39.1 Intake & Output: Intake and Output for Last 24 Hours 04/09/25 04/10/25 04/11/25 23:59 23:59 23:59 Intake Total 3799.80 / 3804.50 2039.45 / 2039.45 850 / 850 Output Total 175 / 175 1325 / 1325 600 / 600 Balance 3624.80 / 3629.50 714.45 / 714.45 250 / 250 Lab / Micro Data 04/11/25 05:36 04/11/25 05:36 Labs: Laboratory Results - last 24 hr 04/10/25 11:09: POC Glucose 156 H 04/10/25 16:54: POC Glucose 136 H 04/10/25 21:10: POC Glucose 186 H 04/11/25 05:36: WBC 23.6 H, RBC 3.26 L, Hgb 8.7 L, Hct 28.2 L, MCV 86.5, MCH 26.7 L, MCHC 30.9 L, RDW Std Deviation 53.0 H, RDW Coeff of Iram 16.9 H, Plt Count 200, MPV 10.5, Immature Gran % (Auto) 1.300 H, Neut % (Auto) 94.2 H, Lymph % (Auto) 1.1 L, Bell % (Auto) 3.3, Eos % (Auto) 0.0, Baso % (Auto) 0.1, Absolute Neuts (auto) 22.2 H, Absolute Lymphs (auto) 0.25 L, Nucleated RBC % 0, Sodium 142, Potassium 3.7, Chloride 107, Carbon Dioxide 24.0, Anion Gap 11, BUN 37 H, Creatinine 1.84 H, Estim Creat Clear Calc 43.26 L, Est GFR (MDRD) Non-Af 37 L, BUN/Creatinine Ratio 20.2 H, Glucose 176 H, Calcium 8.5 Micro: Microbiology 04/10/25 09:15 Sputum, Expectorated/Coughed Gram Stain - Final 04/09/25 16:53 Urine, Catheterized Urine Culture - Preliminary Alpha hemolytic organism 04/09/25 16:53 Urine Catheter - Savage Legionella Antigen - Final 04/09/25 16:53 Urine Catheter - Savage Streptococcus pneumoniae Antigen (M - Final 04/09/25 16:53 Mucosa - Nose SARS-CoV-2, Influenza & RSV (PCR) - Final Rhythm Strip Rhythm Strip: A-fib Rate: 135 Ectopy: None Physical Exam Narrative GENERAL: cooperative HEENT: Atraumatic; normocephalic EYES; Anicteric, Normal Conjunctiva NECK; supple, normal thyroid, RESPIRATORY: Diminished to auscultation CARDIOVASCULAR: Regular S1 S2, tachycardic GI: soft, normoactive bowel sounds, : No Renal angle tenderness; EXTREMITIES: Trace bipedal edema, no clubbing, MUSCULOSKELETAL: no muscle wasting NEURO: Awake; no lateralizing signs. SKIN: No Rash PSYCH; Flat affect Assessment & Plan Assessment/Plan (1) Septic shock: (2) Pneumonia: PLAN: Plan Patient is a 79-year-old gentleman with multiple comorbidities presented with fever patient was found to be hypotensive and assessment of septic shock secondary to pneumonia made admitted to the intensive care unit for further management 1. Septic shock ? Secondary to pneumonia in an immunocompromised patient as well as suspected UTI. Imaging studies obtained on admission demonstrated bibasilar airspace opacities as well as cardiomegaly with pulmonary vascular congestion. Patient admitted to the intensive care unit, managed with IV fluid resuscitation per protocol placed on broad-spectrum antibiotic therapy cultures sent 2. Pneumonia with suspected gram-negative organisms ? Patient managed with broad-spectrum antibiotic therapy cultures sent also placed on supplemental oxygen titrated to keep saturation greater than 90 3. Acute complicated UTI ? Patient urine cultures so far positive for Enterococcus faecium, sensitivities reviewed adjusted antibiotic to 4. Acute kidney injury ? Superimposed on chronic kidney disease stage IIIb. Creatinine from 04/01/2025 was 1.76 creatinine on admission was 2.26 patient started on IV fluid with subsequent monitoring of electrolytes 5. Advanced non-small cell lung CA ? Patient had previously undergone VATS procedure with left upper lobe wedge resection that revealed adenocarcinoma subsequent evaluation demonstrated advanced tumor and patient is currently undergoing palliative care 6. Acute metabolic encephalopathy ? Present on admission resolved at the time of my assessment 7. Chronic hypoxic respiratory failure ? Secondary to COPD patient is on baseline home oxygen 8. Hypothyroidism ? Patient is on levothyroxine home dose continued 9. Coronary artery disease ? Status post CABG. Patient remains on guideline directed medical therapy 10. Chronic A-fib ? Rate control not optimal. Patient is on metoprolol did continue currently not on systemic anticoagulation reason unclear. Plan is to discuss with patient prior to being discharged 11. Elevated troponin ? Secondary to demand ischemia from patient sepsis and tachycardia. 2D echo ordered to assess for regional wall motion abnormalities 12. Class II obesity with BMI of 39.1 ? Complicating care weight loss advised 13. Degenerative joint disease ? Pain meds as needed 14. Anemia ? Secondary to chronic disorder monitoring H&H and transfuse if patient becomes symptomatic or hemoglobin falls below 7 15. Chronic congestive heart failure ? With preserved ejection fractionPatient is on Farxiga as well as furosemide. Repeat echo ordered to assess for EF. Previous echo had demonstrated markedly elevated right ventricular systolic pressures consistent with pulmonary hypertension 16. Peripheral neuropathy Patient is on gabapentin 17. DVT prophylaxis ? Subcu heparin Time spent in the patient's overall evaluation,decision-making process, review of diagnostic data, adjustment of management, discussion with other providers, nursing nursing and ancillary staff involved in patient's care documentation, 52 Minutes Charges/Coding Visit Charges Inpatient E&M: 76348 [facility] L3
--- NOTE | 2025-04-11 07:46 | PCM.PN.INT ---
Assessment & Plan Assessment/Plan (1) Septic shock: PLAN: Plan RECOMMENDATIONS: 1. Continue empiric antimicrobials, pending finalized culture results. 2. Decrease stress dose steroids to twice daily dosing, with plans to discontinue tomorrow, if the patient remains hemodynamically stable. 3. Continue appropriate DVT prophylaxis. 4. Encourage incentive spirometer use and mobilize patient as tolerated. 5. The patient is medically stable for transfer out of the intensive care unit. Will sign off from a critical care perspective. IMPRESSIONS: 1. Septic shock Clinical concern for underlying UTI versus pneumonia's precipitating etiology. The patient did receive volume resuscitation and never required vasopressor support. He remains clinically stable on empiric antimicrobial therapy, which will be continued, pending infectious workup. Will decrease his stress dose steroids to twice daily. Steroids can likely be discontinued tomorrow, if the patient remains hemodynamically stable. 2. History of COPD/chronic hypoxemic respiratory failure/obstructive sleep apnea Continue current medical therapy including BiPAP therapy 14/10 cm of water with naps and nightly. The patient has a baseline oxygen requirement of 3 L/min at all times. Bronchodilators will be continued. 3. History of metastatic non-small cell carcinoma of the left lower lobe Continue outpatient medical therapy per oncology recommendations. 4. Troponin elevation Likely secondary to demand ischemia in the setting of #1. Repeat echocardiogram is currently pending. 5. History of diabetes mellitus/obesity/hypothyroidism/atrial fibrillation Complicates care, management, recovery and prognosis. Continue home medications as indicated. This note was generated with [employer] dictation software. It may contain incorrect words, spelling, and punctuation that were not noted in checking the note before signing. Subjective Subjective The patient was seen and examined at the bedside this morning. Events from the last 24 hours have been reviewed. The patient is currently afebrile, hemodynamically stable and maintaining appropriate oxygen saturations on 4 L/min via nasal cannula. The patient has never required any form of vasopressor support. He is currently documented to be overall net +4.6 L for the hospitalization. White blood cell count has improved to 23,000. Hemoglobin is stable at 8.7 g/dL. Creatinine has improved to 1.84. Objective Data Objective Data The patient's most recent lab work, culture data and imaging studies have all been personally reviewed. Surface echocardiogram demonstrated mild concentric LVH with an ejection fraction of 55%. Pulmonary artery systolic pressure was estimated to be 80 mmHg. Preliminary urine cultures demonstrating growth of possible Enterococcus. Blood and sputum cultures are pending. Vital Signs: Vital Signs Temp Pulse Resp BP Pulse Ox O2 Del Method O2 Flow Rate 96.9 F L 68 23 H 130/60 H 100 Nasal Cannula 4 04/11/25 06:00 04/11/25 06:00 04/11/25 06:00 04/11/25 06:00 04/11/25 06:00 04/11/25 06:00 04/11/25 06:00 Oxygen Flow Rate (L/min) 4 Oxygen Delivery Method Nasal Cannula Weight: 276 lb 7.355 oz Body Mass Index (BMI) 39.1 Intake & Output: Intake and Output for Last 24 Hours 04/09/25 04/10/25 04/11/25 23:59 23:59 23:59 Intake Total 3799.80 / 3804.50 2039.45 / 2039.45 850 / 850 Output Total 175 / 175 1325 / 1325 600 / 600 Balance 3624.80 / 3629.50 714.45 / 714.45 250 / 250 Lab / Micro Data Attestation: I reviewed the patient's lab results. 04/11/25 05:36 04/11/25 05:36 Labs: Laboratory Results - last 24 hr 04/10/25 11:09: POC Glucose 156 H 04/10/25 16:54: POC Glucose 136 H 04/10/25 21:10: POC Glucose 186 H 04/11/25 05:36: WBC 23.6 H, RBC 3.26 L, Hgb 8.7 L, Hct 28.2 L, MCV 86.5, MCH 26.7 L, MCHC 30.9 L, RDW Std Deviation 53.0 H, RDW Coeff of Iram 16.9 H, Plt Count 200, MPV 10.5, Immature Gran % (Auto) 1.300 H, Neut % (Auto) 94.2 H, Lymph % (Auto) 1.1 L, Major % (Auto) 3.3, Eos % (Auto) 0.0, Baso % (Auto) 0.1, Absolute Neuts (auto) 22.2 H, Absolute Lymphs (auto) 0.25 L, Nucleated RBC % 0, Sodium 142, Potassium 3.7, Chloride 107, Carbon Dioxide 24.0, Anion Gap 11, BUN 37 H, Creatinine 1.84 H, Estim Creat Clear Calc 43.26 L, Est GFR (MDRD) Non-Af 37 L, BUN/Creatinine Ratio 20.2 H, Glucose 176 H, Calcium 8.5 Micro: Microbiology 04/10/25 09:15 Sputum, Expectorated/Coughed Gram Stain - Final 04/09/25 16:53 Urine, Catheterized Urine Culture - Preliminary Alpha hemolytic organism 04/09/25 16:53 Urine Catheter - Savage Legionella Antigen - Final 04/09/25 16:53 Urine Catheter - Savage Streptococcus pneumoniae Antigen (M - Final 04/09/25 16:53 Mucosa - Nose SARS-CoV-2, Influenza & RSV (PCR) - Final Rhythm Strip Rhythm Strip: A-fib Rate: 135 Ectopy: None Physical Exam Const alert, oriented x3 and no apparent distress Constitutional Narrative: Obese. Resting comfortably in bed. General Appearance: cooperative and well developed; Negative for in distress HEENT normocephalic, head/scalp atraumatic and moist oral mucous membranes Eyes PERRL, EOMs intact bilaterally and conjunctivae normal Neck supple General: trachea midline Chest inspection of chest normal Resp normal respiratory effort Auscultation: diminished lung sounds; Negative for rales, rhonchi or wheezes Cardio regular rate and regular rhythm GI normal to inspection, nondistended, normoactive bowel sounds Extremity no clubbing, cyanosis or edema Skin no rashes or lesions noted Neuro CN's II-XII intact bilaterally, moves all extremities and no focal motor deficits Psych cooperative and affect normal Charges/Coding Visit Charges Inpatient E&M: 56323 Subs Hosp L3
[2025-04-11] MEDS: Heparin Injection (Vial) 5,000 UNIT/ML VIAL 5000 UNIT SC ×2 (09:49→21:35)
--- NOTE | 2025-04-11 14:35 | CASEMGMT ---
See FLORIDA MARTINES Readmission Intervention. Pt states that his insurance notified him that the pt cannot receive radiation therapy while admitted inpt and that he will have to do this as an OP if he would like coverage. TC back received from [facility]. Spoke with pt's nurse, Janel. Janel requests CM to call the oncology office on the day of DC to schedule the pt for follow up radiation treatment as an OP. FLORIDA MARTINES to the pt's room at this time and notified the pt of the plan. Pt thanks this data analyst report writer and denies further questions or concerns.
[2025-04-11 21:29] LABS: Vancomycin, Trough Level 14.8 ug/mL (5.0-15.0)
--- NOTE | 2025-04-11 21:49 | PCM.RX.CS ---
Consult Antibiotic Management Pharmacy has been consulted to manage selected antibiotic: Vancomycin Type of Intervention Type of Consult: Follow-up Suspected Infection Suspected Infection: Sepsis and Pneumonia Labs Labs: Sodium 142 mmol/L (133-145) 04/11/25 05:36 Potassium 3.7 mmol/L (3.3-5.1) 04/11/25 05:36 Chloride 107 mmol/L (98-108) 04/11/25 05:36 Carbon Dioxide 24.0 mmol/L (21.0-32.0) 04/11/25 05:36 Anion Gap 11 (5-15) 04/11/25 05:36 BUN 37 mg/dL (4-19) H 04/11/25 05:36 Creatinine 1.84 mg/dL (0.70-1.20) H 04/11/25 05:36 Est GFR (MDRD) Non-Af 37 (>60) L 04/11/25 05:36 BUN/Creatinine Ratio 20.2 RATIO (10-20) H 04/11/25 05:36 Glucose 176 mg/dL (70-99) H 04/11/25 05:36 Vancomycin Trough 14.8 ug/mL (5.0-15.0) 04/11/25 20:50 Microbiology Microbiology: Microbiology 04/09/25 16:53 Urine, Catheterized Urine Culture - Final Enterococcus faecium 04/10/25 09:15 Sputum, Expectorated/Coughed Gram Stain - Final 04/09/25 16:53 Urine Catheter - Savage Legionella Antigen - Final 04/09/25 16:53 Urine Catheter - Savage Streptococcus pneumoniae Antigen (M - Final 04/09/25 16:53 Mucosa - Nose SARS-CoV-2, Influenza & RSV (PCR) - Final Dosing Weight Weight used for dosin kg Estimated Creatinine Clearance Estimated Creatinine Clearance: 43 Goal Trough Goal Trough: 15-20 mcg/mL Pharmacy Plan for Drug Dosing Pharmacy Plan for Drug Dosing: Vancomycin trough level of 14.8, drawn 24hrs post-dose, was slightly below the target range of 15-20. Will increase dose to 1750mg q24h, and will draw another trough level prior to the third dose of the new regimen. Pharmacy Service will continue to monitor and adjust dosing as required. Follow-Up Labs Follow-Up Labs: Trough: Vancomycin Date/Time Labs Ordered Labs to be done on [date and time ordered]: 04/13/25 @2021
[2025-04-11] MEDS: Vancomycin HCl 1,750 MG in 0.9% Normal Saline (500mL Bag) 500 ML 250 MG IV (22:22)
[2025-04-12] VITALS (13 sets, daily range): BP systolic 116–150; BP diastolic 61–81; PULSE 72–105; RESP 18–22; TEMP 36.1–36.7; O2SAT 97–100; BMI 38.8
[2025-04-12] MEDS: 0.9% Saline Lock 10 ML Syringe IV ×3 (05:49→23:29)
[2025-04-12 06:06] LABS: Hematocrit 29.8 % (40-54); Hemoglobin 9.1 g/dL (13.0-16.5); Immature Granulocytes Count 0.260 X10^3/uL (0.0-0.0); Mean Corp Hgb Conc 30.5 g/dL (32-36); Mean Corpuscular Volume 86.1 fL (80-94); Mean Platelet Vol. 10.5 fl (6.2-12.0); NRBC Flagged by Analyzer 0 % (0-5); POSITIVE DIFFERENTIAL YES; Platelet Count 221 K/mm3 (150-450); RBC Distribution Width CV 17.0 % (11.6-14.6); RBC Distribution Width SD 52.5 fl (35.1-43.9); Red Blood Count 3.46 M/mm3 (4.6-6.2); White Blood Count 24.2 K/mm3 (4.4-11.0)
[2025-04-12 06:26] LABS: Anion Gap 9 (5-15); BUN 33 mg/dL (4-19); BUN/Creat Ratio 19.4 RATIO (10-20); Calcium,Total 8.5 mg/dL (7.6-11.0); Carbon Dioxide 24.4 mmol/L (21.0-32.0); Chloride 106 mmol/L (98-108); Estimated Creatinine Clearance 46.65 ml/min (50-250); Glucose 146 mg/dL (70-99); Magnesium 2.8 mg/dL (1.5-2.2); Potassium 4.2 mmol/L (3.3-5.1)
[2025-04-12] MEDS: Budesonide Respules 0.5 MG/2 ML AMPUL.NEB. INHALATION ×2 (06:43→19:30)
[2025-04-12 07:10] LABS: Differential Indicated SCAN CRITERIA MET
--- NOTE | 2025-04-12 07:11 | PN.HOSP_ITS ---
Reason for Visit
--- NOTE | 2025-04-12 07:11 | PCM.PN.HOSP ---
Reason for Visit Chief Complaint: Fever Subjective Subjective Patient seen much more awake and interactive compared to previous day. Cultures so far positive for Enterococcus faecium in urine. Objective Data Objective Data Vital Signs: Vital Signs Temp Pulse Resp BP Pulse Ox O2 Del Method O2 Flow Rate 97 F L 79 22 H 130/65 H 99 Nasal Cannula 4 04/12/25 02:00 04/12/25 06:44 04/12/25 06:44 04/12/25 02:00 04/12/25 06:44 04/12/25 06:44 04/12/25 06:44 FiO2 4 04/12/25 02:00 Oxygen Flow Rate (L/min) 4 Oxygen Delivery Method Nasal Cannula Weight: 124.5 kg Body Mass Index (BMI) 38.8 Intake & Output: Intake and Output for Last 24 Hours 04/10/25 04/11/25 04/12/25 23:59 23:59 23:59 Intake Total 2039.45 / 2039.45 900 / 900 535 / 535 Output Total 1325 / 1325 1407 / 2007 1150 / 1150 Balance 714.45 / 714.45 -507 / -1107 -615 / -615 Lab / Micro Data 04/12/25 05:55 04/12/25 05:55 Labs: Laboratory Results - last 24 hr 04/09/25 16:46: Diff Path Review Reviewed 04/11/25 08:14: POC Glucose 121 H 04/11/25 11:15: POC Glucose 191 H 04/11/25 16:20: POC Glucose 143 H 04/11/25 20:50: Vancomycin Trough 14.8 04/11/25 21:32: POC Glucose 151 H 04/12/25 05:55: WBC 24.2 H, RBC 3.46 L, Hgb 9.1 L, Hct 29.8 L, MCV 86.1, MCH 26.3 L, MCHC 30.5 L, RDW Std Deviation 52.5 H, RDW Coeff of Iram 17.0 H, Plt Count 221, MPV 10.5, Immature Gran % (Auto) 1.100 H, Neut % (Auto) 94.3 H, Lymph % (Auto) 0.9 L, [place] % (Auto) 3.6, Eos % (Auto) 0.0, Baso % (Auto) 0.1, Absolute Neuts (auto) 22.8 H, Absolute Lymphs (auto) 0.23 L, Nucleated RBC % 0, Sodium 140, Potassium 4.2, Chloride 106, Carbon Dioxide 24.4, Anion Gap 9, BUN 33 H, Creatinine 1.70 H, Estim Creat Clear Calc 46.65 L, Est GFR (MDRD) Non-Af 41 L, BUN/Creatinine Ratio 19.4, Glucose 146 H, Calcium 8.5, Phosphorus 3.5, Magnesium 2.8 H Micro: Microbiology 04/09/25 16:53 Urine, Catheterized Urine Culture - Final Enterococcus faecium 04/10/25 09:15 Sputum, Expectorated/Coughed Gram Stain - Final 04/09/25 16:53 Urine Catheter - Savage Legionella Antigen - Final 04/09/25 16:53 Urine Catheter - Savage Streptococcus pneumoniae Antigen (M - Final 04/09/25 16:53 Mucosa - Nose SARS-CoV-2, Influenza & RSV (PCR) - Final Radiography Diagnostic Testing: Radiology Impression Echocardiogram 04/10/25 10:47 Interpretation Summary The left ventricular ejection fraction is 55 %. Moderately dilated right ventricle with moderate to severe RV systolic dysfunction. There is severe biatrial dilatation. Moderate (2+) mitral valve insufficiency. Severe tricuspid valve insufficiency. Estimated RVSP 74 mmHg. Moderately calcified aortic valve. Mild aortic valve stenosis. Mean peak gradient 7 mmHg. Ordering Physician: Titi Moore Referring Physician: Swati Banerjee M.D. Performed By: Elva Zuniga RDCS Rhythm Strip Rhythm Strip: A-fib Rate: 135 Ectopy: None Physical Exam Narrative GENERAL: cooperative HEENT: Atraumatic; normocephalic EYES; Anicteric, Normal Conjunctiva NECK; supple, normal thyroid, RESPIRATORY: Diminished to auscultation CARDIOVASCULAR: Regular S1 S2, tachycardic GI: soft, normoactive bowel sounds, : No Renal angle tenderness; EXTREMITIES: Trace bipedal edema, no clubbing, MUSCULOSKELETAL: no muscle wasting NEURO: Awake; no lateralizing signs. SKIN: No Rash PSYCH; Flat affect Assessment & Plan Assessment/Plan (1) Septic shock: (2) Pneumonia: PLAN: Plan Patient is a 79-year-old gentleman with multiple comorbidities presented with fever patient was found to be hypotensive and assessment of septic shock secondary to pneumonia made admitted to the intensive care unit for further management 1. Septic shock ? Secondary to pneumonia in an immunocompromised patient as well as suspected UTI. Imaging studies obtained on admission demonstrated bibasilar airspace opacities as well as cardiomegaly with pulmonary vascular congestion. Patient admitted to the intensive care unit, managed with IV fluid resuscitation per protocol placed on broad-spectrum antibiotic therapy cultures sent ? 04/12/2025; patient currently not on any pressors. Patient WBC count however remains elevated. Plan is for patient to be transferred to the progressive care unit 2. Pneumonia with suspected gram-negative organisms ? Patient managed with broad-spectrum antibiotic therapy cultures sent also placed on supplemental oxygen titrated to keep saturation greater than 90 3. Acute complicated UTI ? Patient urine cultures so far positive for Enterococcus faecium, sensitivities reviewed adjusted antibiotic therapy 4. Acute kidney injury ? Superimposed on chronic kidney disease stage IIIb. Creatinine from 04/01/2025 was 1.76 creatinine on admission was 2.26 patient started on IV fluid with subsequent monitoring of electrolytes 5. Advanced non-small cell lung CA ? Patient had previously undergone VATS procedure with left upper lobe wedge resection that revealed adenocarcinoma subsequent evaluation demonstrated advanced tumor and patient is currently undergoing palliative care 6. Acute metabolic encephalopathy ? Present on admission resolved at the time of my assessment 7. Chronic hypoxic respiratory failure ? Secondary to COPD patient is on baseline home oxygen 8. Hypothyroidism ? Patient is on levothyroxine home dose continued 9. Coronary artery disease ? Status post CABG. Patient remains on guideline directed medical therapy 10. Chronic A-fib ? Rate control not optimal. Patient is on metoprolol did continue currently not on systemic anticoagulation reason unclear. Plan is to discuss with patient prior to being discharged 11. Elevated troponin ? Secondary to demand ischemia from patient sepsis and tachycardia. 2D echo ordered to assess for regional wall motion abnormalities 12. Class II obesity with BMI of 39.1 ? Complicating care weight loss advised 13. Degenerative joint disease ? Pain meds as needed 14. Anemia ? Secondary to chronic disorder monitoring H&H and transfuse if patient becomes symptomatic or hemoglobin falls below 7 15. Chronic congestive heart failure ? With preserved ejection fractionPatient is on Farxiga as well as furosemide. Repeat echo ordered to assess for EF. Previous echo had demonstrated markedly elevated right ventricular systolic pressures consistent with pulmonary hypertension 16. Peripheral neuropathy Patient is on gabapentin 17. DVT prophylaxis ? Subcu heparin Time spent in the patient's overall evaluation,decision-making process, review of diagnostic data, adjustment of management, discussion with other providers, nursing nursing and ancillary staff involved in patient's care documentation, 40 Minutes Charges/Coding Visit Charges Inpatient E&M: 31303 Subs Hosp L2
[2025-04-12] MEDS: Heparin Injection (Vial) 5,000 UNIT/ML VIAL 5000 UNIT SC ×2 (09:32→23:27)
[2025-04-12] MEDS: Metoprolol(XL)Succ 25 MG Tablet PO (10:32)
--- NOTE | 2025-04-12 11:01 | CASEMGMT ---
[facility] requesting an update on pt's [facility] plans. Update provided. [facility] states that [facility] not [facility] in this case and states that the pt is 90% service connected and that the [facility] will help pay for the pt's stay at [facility]. [facility] requesting clinicals to be faxed to [phone]. Updated clinicals faxed to the [facility] at this time. [facility] denies further needs.
--- NOTE | 2025-04-12 14:07 | CASEMGMT ---
[facility] reports that the tentative [facility] date is Friday. CM to follow.
[2025-04-12] MEDS: guaiFENesin 10 ML UDC (200MG/10ML) PO (20:07)
[2025-04-12] MEDS: Vancomycin HCl 1,750 MG in 0.9% Normal Saline (500mL Bag) 500 ML 250 MG IV (23:28)
[2025-04-13] VITALS (11 sets, daily range): BP systolic 113–141; BP diastolic 72–131; PULSE 66–113; RESP 16–22; TEMP 36.3–36.6; O2SAT 96–99; BMI 39.3
[2025-04-13 05:52] LABS: Hematocrit 30.5 % (40-54); Hemoglobin 9.2 g/dL (13.0-16.5); Immature Granulocytes Count 0.270 X10^3/uL (0.0-0.0); Mean Corp Hgb Conc 30.2 g/dL (32-36); Mean Corpuscular Volume 87.1 fL (80-94); Mean Platelet Vol. 10.1 fl (6.2-12.0); NRBC Flagged by Analyzer 0 % (0-5); POSITIVE DIFFERENTIAL YES; Platelet Count 210 K/mm3 (150-450); RBC Distribution Width CV 17.3 % (11.6-14.6); RBC Distribution Width SD 53.5 fl (35.1-43.9); Red Blood Count 3.50 M/mm3 (4.6-6.2); White Blood Count 20.7 K/mm3 (4.4-11.0)
[2025-04-13 06:19] LABS: Anion Gap 8 (5-15); BUN 29 mg/dL (4-19); BUN/Creat Ratio 21.6 RATIO (10-20); Calcium,Total 8.6 mg/dL (7.6-11.0); Carbon Dioxide 25.6 mmol/L (21.0-32.0); Chloride 107 mmol/L (98-108); Estimated Creatinine Clearance 60.03 ml/min (50-250); Glucose 102 mg/dL (70-99); Potassium 3.9 mmol/L (3.3-5.1)
[2025-04-13] MEDS: Budesonide Respules 0.5 MG/2 ML AMPUL.NEB. INHALATION ×2 (07:22→19:29)
--- NOTE | 2025-04-13 07:26 | PCM.PN.HOSP ---
Reason for Visit Chief Complaint: Fever Subjective Subjective Patient seen still has a productive cough. WBC count remains elevated however trending in the right direction. Objective Data Objective Data Vital Signs: Vital Signs Temp Pulse Resp BP Pulse Ox O2 Del Method O2 Flow Rate 97.3 F L 79 20 H 124/76 H 99 Nasal Cannula 4 04/13/25 03:10 04/13/25 07:24 04/13/25 07:24 04/13/25 03:10 04/13/25 07:24 04/13/25 07:24 04/13/25 07:24 FiO2 3 04/12/25 08:23 Oxygen Flow Rate (L/min) 4 Oxygen Delivery Method Nasal Cannula Weight: 126.1 kg Body Mass Index (BMI) 39.3 Intake & Output: Intake and Output for Last 24 Hours 04/11/25 04/12/25 04/13/25 23:59 23:59 23:59 Intake Total 900 / 900 1295 / 1295 535 / 535 Output Total 1407 / 2007 2100 / 2100 Balance -507 / -1107 -805 / -805 535 / 535 Lab / Micro Data 04/13/25 04:54 04/13/25 04:54 Labs: Laboratory Results - last 24 hr 04/12/25 11:48: POC Glucose 184 H 04/12/25 16:26: POC Glucose 110 H 04/12/25 23:23: POC Glucose 101 04/13/25 04:54: WBC 20.7 H, RBC 3.50 L, Hgb 9.2 L, Hct 30.5 L, MCV 87.1, MCH 26.3 L, MCHC 30.2 L, RDW Std Deviation 53.5 H, RDW Coeff of Iram 17.3 H, Plt Count 210, MPV 10.1, Immature Gran % (Auto) 1.300 H, Neut % (Auto) 89.0 H, Lymph % (Auto) 2.2 L, [place] % (Auto) 7.2, Eos % (Auto) 0.1, Baso % (Auto) 0.2, Absolute Neuts (auto) 18.4 H, Absolute Lymphs (auto) 0.46 L, Nucleated RBC % 0, Sodium 140, Potassium 3.9, Chloride 107, Carbon Dioxide 25.6, Anion Gap 8, BUN 29 H, Creatinine 1.33 H, Estim Creat Clear Calc 60.03, Est GFR (MDRD) Non-Af 54 L, BUN/Creatinine Ratio 21.6 H, Glucose 102 H, Calcium 8.6 04/13/25 06:28: POC Glucose 94 Micro: Microbiology 04/10/25 09:15 Sputum, Expectorated/Coughed Gram Stain - Final 04/10/25 09:15 Sputum, Expectorated/Coughed Respiratory Culture - Preliminary Presumptive C albicans 04/09/25 16:46 Blood Culture (Wb) - Right Forearm Blood Culture - Preliminary No growth in 48 hours. 04/09/25 16:46 Blood Culture (Wb) - Anticubital Right Blood Culture - Preliminary No growth in 48 hours. 04/09/25 16:53 Urine, Catheterized Urine Culture - Final Enterococcus faecium 04/09/25 16:53 Urine Catheter - Savage Legionella Antigen - Final 04/09/25 16:53 Urine Catheter - Savage Streptococcus pneumoniae Antigen (M - Final 04/09/25 16:53 Mucosa - Nose SARS-CoV-2, Influenza & RSV (PCR) - Final Rhythm Strip Rhythm Strip: A-fib Rate: 135 Ectopy: None Physical Exam Narrative GENERAL: cooperative HEENT: Atraumatic; normocephalic EYES; Anicteric, Normal Conjunctiva NECK; supple, normal thyroid, RESPIRATORY: Diminished to auscultation CARDIOVASCULAR: Regular S1 S2, tachycardic GI: soft, normoactive bowel sounds, : No Renal angle tenderness; EXTREMITIES: Trace bipedal edema, no clubbing, MUSCULOSKELETAL: no muscle wasting NEURO: Awake; no lateralizing signs. SKIN: No Rash PSYCH; Flat affect Assessment & Plan Assessment/Plan (1) Septic shock: (2) Pneumonia: PLAN: Plan Patient is a 79-year-old gentleman with multiple comorbidities presented with fever patient was found to be hypotensive and assessment of septic shock secondary to pneumonia made admitted to the intensive care unit for further management 1. Septic shock ? Secondary to pneumonia in an immunocompromised patient as well as suspected UTI. Imaging studies obtained on admission demonstrated bibasilar airspace opacities as well as cardiomegaly with pulmonary vascular congestion. Patient admitted to the intensive care unit, managed with IV fluid resuscitation per protocol placed on broad-spectrum antibiotic therapy cultures sent ? 04/12/2025; patient currently not on any pressors. Patient WBC count however remains elevated. Plan is for patient to be transferred to the progressive care unit ? 04/13/2025;Patient seen still has a productive cough. WBC count remains elevated however trending in the right direction. 2. Pneumonia with suspected gram-negative organisms ? Patient managed with broad-spectrum antibiotic therapy cultures sent also placed on supplemental oxygen titrated to keep saturation greater than 90 ? 04/13/2025; sputum culture only positive for [place] albicans do suspect colonization 3. Acute complicated UTI ? Patient urine cultures so far positive for Enterococcus faecium, sensitivities reviewed adjusted antibiotic therapy 4. Acute kidney injury ? Superimposed on chronic kidney disease stage IIIb. Creatinine from 04/01/2025 was 1.76 creatinine on admission was 2.26 patient started on IV fluid with subsequent monitoring of electrolytes ? 04/13/2025; patient creatinine continues to improve currently down to 1.3 3 repeat BMP ordered for a.m. 5. Advanced non-small cell lung CA ? Patient had previously undergone VATS procedure with left upper lobe wedge resection that revealed adenocarcinoma subsequent evaluation demonstrated advanced tumor and patient is currently undergoing palliative care 6. Acute metabolic encephalopathy ? Present on admission resolved at the time of my assessment 7. Chronic hypoxic respiratory failure ? Secondary to COPD patient is on baseline home oxygen 8. Hypothyroidism ? Patient is on levothyroxine home dose continued 9. Coronary artery disease ? Status post CABG. Patient remains on guideline directed medical therapy 10. Chronic A-fib ? Rate control not optimal. Patient is on metoprolol did continue currently not on systemic anticoagulation reason unclear. Plan is to discuss with patient prior to being discharged 11. Elevated troponin ? Secondary to demand ischemia from patient sepsis and tachycardia. 2D echo ordered to assess for regional wall motion abnormalities 12. Class II obesity with BMI of 39.1 ? Complicating care weight loss advised 13. Degenerative joint disease ? Pain meds as needed 14. Anemia ? Secondary to chronic disorder monitoring H&H and transfuse if patient becomes symptomatic or hemoglobin falls below 7 15. Chronic congestive heart failure ? With preserved ejection fractionPatient is on Farxiga as well as furosemide. Repeat echo ordered to assess for EF. Previous echo had demonstrated markedly elevated right ventricular systolic pressures consistent with pulmonary hypertension 16. Peripheral neuropathy Patient is on gabapentin 17. DVT prophylaxis ? Subcu heparin Time spent in the patient's overall evaluation,decision-making process, review of diagnostic data, adjustment of management, discussion with other providers, nursing nursing and ancillary staff involved in patient's care documentation, 35 Minutes Charges/Coding Visit Charges Inpatient E&M: 00159 Subs Hosp L2
--- NOTE | 2025-04-13 07:26 | PN.HOSP_ITS ---
Reason for Visit
[2025-04-13] MEDS: Heparin Injection (Vial) 5,000 UNIT/ML VIAL 5000 UNIT SC ×2 (08:30→21:07)
[2025-04-13] MEDS: Metoprolol(XL)Succ 25 MG Tablet PO (08:33)
[2025-04-13 15:15] LABS: Base Excess 2 mmol/L (-2 to +2); FI02 4.0; PO2 71 mmHG (75-100); SITE L Radial; SO2 95 % (94-98)
--- NOTE | 2025-04-13 15:36 | WOUNDNOTE ---
wound photo: right hip
[2025-04-13] MEDS: 0.9% Saline Lock 10 ML Syringe IV (21:08)
[2025-04-13] MEDS: Vancomycin Trough/Random Due 1 LAB MC (21:30)
[2025-04-13 21:57] LABS: Vancomycin, Trough Level 20.9 ug/mL (5.0-15.0)
--- NOTE | 2025-04-13 22:05 | PCM.RX.CS ---
Consult Antibiotic Management Pharmacy has been consulted to manage selected antibiotic: Vancomycin Type of Intervention Type of Consult: Follow-up Labs Labs: Sodium 140 mmol/L (133-145) 04/13/25 04:54 Potassium 3.9 mmol/L (3.3-5.1) 04/13/25 04:54 Chloride 107 mmol/L (98-108) 04/13/25 04:54 Carbon Dioxide 25.6 mmol/L (21.0-32.0) 04/13/25 04:54 Anion Gap 8 (5-15) 04/13/25 04:54 BUN 29 mg/dL (4-19) H 04/13/25 04:54 Creatinine 1.33 mg/dL (0.70-1.20) H 04/13/25 04:54 Est GFR (MDRD) Non-Af 54 (>60) L 04/13/25 04:54 BUN/Creatinine Ratio 21.6 RATIO (10-20) H 04/13/25 04:54 Glucose 102 mg/dL (70-99) H 04/13/25 04:54 Vancomycin Trough 20.9 ug/mL (5.0-15.0) H 04/13/25 21:20 Microbiology Microbiology: Microbiology 04/10/25 09:15 Sputum, Expectorated/Coughed Gram Stain - Final 04/10/25 09:15 Sputum, Expectorated/Coughed Respiratory Culture - Final Presumptive C albicans 04/09/25 16:46 Blood Culture (Wb) - Right Forearm Blood Culture - Preliminary No growth in 48 hours. 04/09/25 16:46 Blood Culture (Wb) - Anticubital Right Blood Culture - Preliminary No growth in 48 hours. 04/09/25 16:53 Urine, Catheterized Urine Culture - Final Enterococcus faecium 04/09/25 16:53 Urine Catheter - Savage Legionella Antigen - Final 04/09/25 16:53 Urine Catheter - [place] Streptococcus pneumoniae Antigen (M - Final 04/09/25 16:53 Mucosa - Nose SARS-CoV-2, Influenza & RSV (PCR) - Final Goal Trough Goal Trough: 15-20 mcg/mL Pharmacy Plan for Drug Dosing Pharmacy Plan for Drug Dosing: Pharmacy Service will continue to monitor and adjust dosing as required. TROUGH 20.9 @ 22 HOURS. HYOLD DOSE AND DRAW RANDOM LEVEL IN 6 HOURS. Follow-Up Labs Follow-Up Labs: Trough: Vancomycin Date/Time Labs Ordered Labs to be done on [date and time ordered]: 04/14 @ 1494
[2025-04-14] VITALS (11 sets, daily range): BP systolic 119–163; BP diastolic 50–93; PULSE 70–118; RESP 18–24; TEMP 36.3–37.9; O2SAT 94–98
[2025-04-14 04:08] LABS: Hematocrit 30.7 % (40-54); Hemoglobin 9.3 g/dL (13.0-16.5); Immature Granulocytes Count 0.310 X10^3/uL (0.0-0.0); Mean Corp Hgb Conc 30.3 g/dL (32-36); Mean Corpuscular Volume 86.2 fL (80-94); Mean Platelet Vol. 10.1 fl (6.2-12.0); NRBC Flagged by Analyzer 0 % (0-5); POSITIVE DIFFERENTIAL YES; Platelet Count 200 K/mm3 (150-450); RBC Distribution Width CV 17.9 % (11.6-14.6); RBC Distribution Width SD 54.4 fl (35.1-43.9); Red Blood Count 3.56 M/mm3 (4.6-6.2); White Blood Count 26.3 K/mm3 (4.4-11.0)
[2025-04-14 04:10] LABS: Differential Indicated SCAN CRITERIA MET
[2025-04-14] MEDS: Vancomycin Trough/Random Due 1 LAB MC (04:11)
[2025-04-14 04:39] LABS: Vancomycin, Random Level 17.0 ug/mL (0.0-15.0)
[2025-04-14 04:58] LABS: Anisocytosis 1+; Differential Comment SCANNED; Dohle Bodies 1+; Polychromasia 1+; Toxic Granulation 1+; Vacuolated Cells 1+
[2025-04-14 04:59] LABS: Basophilic Stippling 1+; Tear Drop Cell RARE
[2025-04-14 05:11] LABS: Anion Gap 10 (5-15); BUN 25 mg/dL (4-19); BUN/Creat Ratio 19.8 RATIO (10-20); Calcium,Total 8.9 mg/dL (7.6-11.0); Carbon Dioxide 23.8 mmol/L (21.0-32.0); Chloride 108 mmol/L (98-108); Estimated Creatinine Clearance 64.39 ml/min (50-250); Glucose 108 mg/dL (70-99); Potassium 4.2 mmol/L (3.3-5.1)
[2025-04-14] MEDS: Vancomycin HCl 1,500 MG in 0.9% Normal Saline (500mL Bag) 500 ML 250 MG IV (05:29)
[2025-04-14] MEDS: 0.9% Saline Lock 10 ML Syringe IV ×2 (05:29→21:12)
--- NOTE | 2025-04-14 06:03 | PCM.RX.CS ---
Consult Antibiotic Management Pharmacy has been consulted to manage selected antibiotic: Vancomycin Type of Intervention Type of Consult: Follow-up Labs Labs: Sodium 141 mmol/L (133-145) 04/14/25 03:55 Potassium 4.2 mmol/L (3.3-5.1) 04/14/25 03:55 Chloride 108 mmol/L (98-108) 04/14/25 03:55 Carbon Dioxide 23.8 mmol/L (21.0-32.0) 04/14/25 03:55 Anion Gap 10 (5-15) 04/14/25 03:55 BUN 25 mg/dL (4-19) H 04/14/25 03:55 Creatinine 1.24 mg/dL (0.70-1.20) H 04/14/25 03:55 Est GFR (MDRD) Non-Af 59 (>60) L 04/14/25 03:55 BUN/Creatinine Ratio 19.8 RATIO (10-20) 04/14/25 03:55 Glucose 108 mg/dL (70-99) H 04/14/25 03:55 Vancomycin Trough 20.9 ug/mL (5.0-15.0) H 04/13/25 21:20 Random Vancomycin 17.0 ug/mL (0.0-15.0) H 04/14/25 03:55 Microbiology Microbiology: Microbiology 04/10/25 09:15 Sputum, Expectorated/Coughed Gram Stain - Final 04/10/25 09:15 Sputum, Expectorated/Coughed Respiratory Culture - Final Presumptive C albicans 04/09/25 16:46 Blood Culture (Wb) - Right Forearm Blood Culture - Preliminary No growth in 48 hours. 04/09/25 16:46 Blood Culture (Wb) - Anticubital Right Blood Culture - Preliminary No growth in 48 hours. 04/09/25 16:53 Urine, Catheterized Urine Culture - Final Enterococcus faecium 04/09/25 16:53 Urine Catheter - Savage Legionella Antigen - Final 04/09/25 16:53 Urine Catheter - Savage Streptococcus pneumoniae Antigen (M - Final 04/09/25 16:53 Mucosa - Nose SARS-CoV-2, Influenza & RSV (PCR) - Final Goal Trough Goal Trough: 15-20 mcg/mL Pharmacy Plan for Drug Dosing Pharmacy Plan for Drug Dosing: Pharmacy Service will continue to monitor and adjust dosing as required. RANDOM LEVEL 17.0. START 1500MG Q24H AND DRAW TROUGH PRIOR TO 3RD DOSE Follow-Up Labs Follow-Up Labs: Trough: Vancomycin Date/Time Labs Ordered Labs to be done on [date and time ordered]: 04/16 @ 2193
[2025-04-14] MEDS: Budesonide Respules 0.5 MG/2 ML AMPUL.NEB. INHALATION ×2 (06:39→20:04)
--- NOTE | 2025-04-14 07:32 | PN.HOSP_ITS ---
Reason for Visit
--- NOTE | 2025-04-14 07:32 | PCM.PN.HOSP ---
Reason for Visit Chief Complaint: Fever Subjective Subjective Patient seen remains dyspneic at rest. Did explain to patient the need to stay at least 1 more day given the rise in WBC count. Patient however is insistent on being discharged home. He states that he will feel better at home. Objective Data Objective Data Vital Signs: Vital Signs Temp Pulse Resp BP Pulse Ox O2 Del Method O2 Flow Rate 97.9 F 89 20 H 134/58 H 94 Nasal Cannula 4 04/14/25 05:50 04/14/25 06:39 04/14/25 06:39 04/14/25 05:50 04/14/25 06:39 04/14/25 06:39 04/14/25 06:39 FiO2 3 04/12/25 08:23 Oxygen Flow Rate (L/min) 4 Oxygen Delivery Method Nasal Cannula Weight: 126.1 kg Body Mass Index (BMI) 39.3 Intake & Output: Intake and Output for Last 24 Hours 04/12/25 04/13/25 04/14/25 23:59 23:59 23:59 Intake Total 1295 / 1295 1085 / 1085 0 / 0 Output Total 2100 / 2100 Balance -805 / -805 1085 / 1085 0 / 0 Lab / Micro Data 04/14/25 03:55 04/14/25 03:55 Labs: Laboratory Results - last 24 hr 04/13/25 11:30: POC Glucose 161 H 04/13/25 16:06: POC Glucose 119 H 04/13/25 21:04: POC Glucose 122 H 04/13/25 21:20: Vancomycin Trough 20.9 H 04/14/25 03:55: WBC 26.3 H, RBC 3.56 L, Hgb 9.3 L, Hct 30.7 L, MCV 86.2, MCH 26.1 L, MCHC 30.3 L, RDW Std Deviation 54.4 H, RDW Coeff of Iram 17.9 H, Plt Count 200, MPV 10.1, Immature Gran % (Auto) 1.200 H, Neut % (Auto) 90.2 H, Lymph % (Auto) 2.4 L, Long % (Auto) 5.7, Eos % (Auto) 0.3, Baso % (Auto) 0.2, Absolute Neuts (auto) 23.7 H, Absolute Lymphs (auto) 0.62 L, Nucleated RBC % 0, Differential Comment SCANNED, Toxic Granulation 1+, Toxic Vacuolation 1+, Dohle Bodies 1+, Platelet Estimate ADEQUATE, Polychromasia 1+, Basophilic Stippling 1+, Anisocytosis 1+, Tear Drop Cells RARE, Ovalocytes 1+, Sodium 141, Potassium 4.2, Chloride 108, Carbon Dioxide 23.8, Anion Gap 10, BUN 25 H, Creatinine 1.24 H, Estim Creat Clear Calc 64.39, Est GFR (MDRD) Non-Af 59 L, BUN/Creatinine Ratio 19.8, Glucose 108 H, Calcium 8.9, Random Vancomycin 17.0 H 04/14/25 06:13: POC Glucose 90 Micro: Microbiology 04/10/25 09:15 Sputum, Expectorated/Coughed Gram Stain - Final 04/10/25 09:15 Sputum, Expectorated/Coughed Respiratory Culture - Final Presumptive C albicans 04/09/25 16:46 Blood Culture (Wb) - Right Forearm Blood Culture - Preliminary No growth in 48 hours. 04/09/25 16:46 Blood Culture (Wb) - Anticubital Right Blood Culture - Preliminary No growth in 48 hours. 04/09/25 16:53 Urine, Catheterized Urine Culture - Final Enterococcus faecium 04/09/25 16:53 Urine Catheter - Savage Legionella Antigen - Final 04/09/25 16:53 Urine Catheter - Savage Streptococcus pneumoniae Antigen (M - Final 04/09/25 16:53 Mucosa - Nose SARS-CoV-2, Influenza & RSV (PCR) - Final ABG Data ABG results: ABG 04/13/25 15:11 Specimen Type ART Sample Site L Radial pH 7.44 Bicarbonate Actual 25.9 Total CO2 27 Base Excess 2 O2 Saturation 95 O2 % 4.0 ABG pCO2 37.8 ABG pO2 71 L O2 Delivery Device Cannula Vent Mode Not entered Rhythm Strip Rhythm Strip: A-fib Rate: 135 Ectopy: None Physical Exam Narrative GENERAL: cooperative but dyspneic at rest HEENT: Atraumatic; normocephalic EYES; Anicteric, Normal Conjunctiva NECK; supple, normal thyroid, RESPIRATORY: Diminished to auscultation CARDIOVASCULAR: Regular S1 S2, tachycardic GI: soft, normoactive bowel sounds, : No Renal angle tenderness; EXTREMITIES: bipedal edema, no clubbing, MUSCULOSKELETAL: no muscle wasting NEURO: Awake; no lateralizing signs. SKIN: No Rash PSYCH; Flat affect Assessment & Plan Assessment/Plan (1) Septic shock: (2) Pneumonia: PLAN: Plan Patient is a 79-year-old gentleman with multiple comorbidities presented with fever patient was found to be hypotensive and assessment of septic shock secondary to pneumonia made admitted to the intensive care unit for further management 1. Septic shock ? Secondary to pneumonia in an immunocompromised patient as well as suspected UTI. Imaging studies obtained on admission demonstrated bibasilar airspace opacities as well as cardiomegaly with pulmonary vascular congestion. Patient admitted to the intensive care unit, managed with IV fluid resuscitation per protocol placed on broad-spectrum antibiotic therapy cultures sent ? 04/12/2025; patient currently not on any pressors. Patient WBC count however remains elevated. Plan is for patient to be transferred to the progressive care unit ? 04/13/2025;Patient seen still has a productive cough. WBC count remains elevated however trending in the right direction. ? 04/14/2025; patient WBC count up this a.m. 2. Pneumonia with suspected gram-negative organisms ? Patient managed with broad-spectrum antibiotic therapy cultures sent also placed on supplemental oxygen titrated to keep saturation greater than 90 ? 04/13/2025; sputum culture only positive for Vonnie albicans do suspect colonization ? 04/14/2025; patient appears to have a productive cough ordered repeat chest x-ray 3. Acute complicated UTI ? Patient urine cultures so far positive for Enterococcus faecium, sensitivities reviewed adjusted antibiotic therapy 4. Acute kidney injury ? Superimposed on chronic kidney disease stage IIIb. Creatinine from 04/01/2025 was 1.76 creatinine on admission was 2.26 patient started on IV fluid with subsequent monitoring of electrolytes ? 04/13/2025; patient creatinine continues to improve currently down to 1.3 3 repeat BMP ordered for a.m. 5. Advanced non-small cell lung CA ? Patient had previously undergone VATS procedure with left upper lobe wedge resection that revealed adenocarcinoma subsequent evaluation demonstrated advanced tumor and patient is currently undergoing palliative care 6. Acute metabolic encephalopathy ? Present on admission resolved at the time of my assessment 7. Chronic hypoxic respiratory failure ? Secondary to COPD patient is on baseline home oxygen 8. Hypothyroidism ? Patient is on levothyroxine home dose continued 9. Coronary artery disease ? Status post CABG. Patient remains on guideline directed medical therapy 10. Chronic A-fib ? Rate control not optimal. Patient is on metoprolol did continue currently not on systemic anticoagulation reason unclear. Plan is to discuss with patient prior to being discharged 11. Elevated troponin ? Secondary to demand ischemia from patient sepsis and tachycardia. 2D echo ordered to assess for regional wall motion abnormalities 12. Class II obesity with BMI of 39.1 ? Complicating care weight loss advised 13. Degenerative joint disease ? Pain meds as needed 14. Anemia ? Secondary to chronic disorder monitoring H&H and transfuse if patient becomes symptomatic or hemoglobin falls below 7 15. Acute on chronic congestive heart failure ? With preserved ejection fractionPatient is on Farxiga as well as furosemide. Repeat echo ordered to assess for EF. Previous echo had demonstrated markedly elevated right ventricular systolic pressures consistent with pulmonary hypertension ? Patient was also assessed to be in acute congestive heart failure ordered 80 mg of Lasix x 1. Also requested for checks x-ray. 16. Peripheral neuropathy Patient is on gabapentin 17. DVT prophylaxis ? Subcu heparin Time spent in the patient's overall evaluation,decision-making process, review of diagnostic data, adjustment of management, discussion with other providers, nursing nursing and ancillary staff involved in patient's care documentation, 40 Minutes Charges/Coding Visit Charges Inpatient E&M: 23491 Subs Hosp L2
[2025-04-14] MEDS: Metoprolol(XL)Succ 25 MG Tablet PO (09:20)
--- NOTE | 2025-04-14 10:51 | RAD_ITS ---
PROCEDURE: RAD/Chest PA and Lateral
[2025-04-14 11:23] LABS: Pro- Brain NATRIURETIC PEPTIDE 18878 pg/mL (<=1800)
[2025-04-14] MEDS: Heparin Injection (Vial) 5,000 UNIT/ML VIAL 5000 UNIT SC ×2 (12:23→21:11)
--- NOTE | 2025-04-14 14:46 | CASEMGMT ---
FLORIDA MARTINES was asked by charge nurse regarding patient going to radiation treatment today. FLORIDA MARTINES updated radiology nurse of patient's current condition and asked to update Dr Marcial to talk with hospitalist. FLORIDA MARTINES was then updated by hospitalist that radiation treatment would be re-evaluated Friday pending patient's condition. FLORIDA MARTINES in to patient's room to update regarding radiation treatments being on hold and will re-evaluate on Friday for appropriateness. Patient voiced understanding and then stated that he wasn't sure if he wanted to even do the radiation treatments anymore. Patient asked RN BOBBI what he should do. FLORIDA MARTINES discussed palliative treatment vs hospice care and informed patient that it is his decision on what his goals of care are and encouraged patient to have conversation with family on what his goals. 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 Patient states he is scared of dying. Again, FLORIDA MARTINES educated patient regarding Inpatient Palliative MACHINE MILKER and that she could have a consult with patient and family to discuss palliative vs hospice and goals of care. Patient would appreciate conversation with Inpatient Palliative MACHINE MILKER and asked if this FLORIDA MARTINES could update regarding the radiation and palliative consult. Patient also asked this RN CM to tell his he loves her. FLORIDA MARTINES called , Ellen and updated her regarding radiation on hold and conversation regarding goals of care and palliative consult. FLORIDA MARTINES also updated that patient said he love her. states she was not expecting to have this conversation. RN BOBBI updated that this is this a consult for information and no decision has to be made if patient would like hospice or palliative. agreeable to palliative consult for tomorrow and states she could be at the hospital tomorrow at 10am. has no further questions or concerns. FLORIDA MARTINES updated hospitalist, order received for Inpatient Palliative Consult. FLORIDA MARTINES placed consult and updated Inpatient Palliative MACHINE MILKER regarding consult and that will be here at 10am, Inpatient Palliative states she will see patient at 10am tomorrow. FLORIDA MARTINES updated nursing.
[2025-04-15] VITALS (10 sets, daily range): BP systolic 114–130; BP diastolic 59–76; PULSE 77–124; RESP 16–20; TEMP 35.8–37.1; O2SAT 96–100; BMI 39.5
[2025-04-15 05:07] LABS: Hematocrit 29.4 % (40-54); Hemoglobin 9.0 g/dL (13.0-16.5); Immature Granulocytes Count 0.210 X10^3/uL (0.0-0.0); Mean Corp Hgb Conc 30.6 g/dL (32-36); Mean Corpuscular Volume 85.7 fL (80-94); Mean Platelet Vol. 10.6 fl (6.2-12.0); NRBC Flagged by Analyzer 0 % (0-5); POSITIVE DIFFERENTIAL YES; Platelet Count 203 K/mm3 (150-450); RBC Distribution Width CV 18.0 % (11.6-14.6); RBC Distribution Width SD 54.4 fl (35.1-43.9); Red Blood Count 3.43 M/mm3 (4.6-6.2); White Blood Count 22.9 K/mm3 (4.4-11.0)
[2025-04-15 05:23] LABS: Differential Indicated SCAN CRITERIA MET
[2025-04-15] MEDS: Vancomycin HCl 1,500 MG in 0.9% Normal Saline (500mL Bag) 500 ML 250 MG IV (05:42)
[2025-04-15 06:23] LABS: Anion Gap 7 (5-15); BUN 22 mg/dL (4-19); BUN/Creat Ratio 17.0 RATIO (10-20); Calcium,Total 8.7 mg/dL (7.6-11.0); Carbon Dioxide 27.7 mmol/L (21.0-32.0); Chloride 107 mmol/L (98-108); Estimated Creatinine Clearance 60.20 ml/min (50-250); Glucose 102 mg/dL (70-99); Potassium 3.8 mmol/L (3.3-5.1)
[2025-04-15 06:34] LABS: Differential Comment SCANNED; Reactive Lymphocyte RARE
[2025-04-15] MEDS: Budesonide Respules 0.5 MG/2 ML AMPUL.NEB. INHALATION ×2 (06:51→17:24)
--- NOTE | 2025-04-15 08:07 | PCM.CONS.P ---
[facility] Medical History Acute kidney injury superimposed on CKD Elevated troponin Fever Acute UTI Sepsis UTI (urinary tract infection) Sepsis Metastasis from cancer of soft tissues Regional lymph node metastasis present Metastasis to liver Pain Cancer of lower lobe of right lung Nodule of parotid gland History of home oxygen therapy Cardiology follow-up encounter Gastric ulcer History of lung cancer Adrenal mass History of Parkinson's disease History of atrial fibrillation Hx of cancer of lung Pulmonary hypertension Emphysema, unspecified History of echocardiogram History of stress test Hypertension History of atrial fibrillation Hx of fracture of ankle COVID Chronic combined systolic and diastolic CHF (congestive heart failure) Severe pulmonary arterial systolic hypertension Wears glasses Uses wheelchair Walker as ambulation aid Ambulates with cane Arthritis Anemia Migraine headache Injury of head and neck Parkinson's disease Gastric reflux Former smoker BiPAP (biphasic positive airway pressure) dependence COPD (chronic obstructive pulmonary disease) On home oxygen therapy History of pain when walking History of edema Amputated great toe of left foot Amputation of one or more toes Chronic ulcer of left foot with fat layer exposed Hammer toe of left foot Toe osteomyelitis Right ventricular dilation, secondary Right ventricular systolic dysfunction Respiratory failure with hypoxia Diverticular disease Polyp of colon, adenomatous Chronic gastritis Multiple premature ventricular complexes Longstanding persistent atrial fibrillation Hyperlipidemia Acute kidney injury NSTEMI (non-ST elevated myocardial infarction) (12/02/19) Sepsis Gastric AVM Adenocarcinoma of lung, stage 1 GI bleed Iron deficiency anemia due to chronic blood loss Atherosclerosis of coronary artery of red devil heart without angina pectoris Cancer of upper lobe of left lung 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 Benign essential hypertension HEBER (obstructive sleep apnea) Dementia Parkinsons Essential tremor GERD (gastroesophageal reflux disease) Alcohol dependence Home Medications ?Medication ?Instructions ?Recorded ?Last Taken ?Type ferrous sulfate 325 mg (65 mg 65 mg PO DAILY supplement 02/01/19 04/09/25 History iron) tablet cholecalciferol (vitamin D3) 125 5,000 unit PO DAILY cholesterol 03/30/19 04/09/25 History mcg (5,000 unit) capsule peg [id number] 1 1 drp EACH EYE Q1H PRN DRY EYES #0 04/26/24 04/25/24 10:10 Rx %-0.2 %-0.2 % eye drops mL (Artificial Tears ([id number])) sodium chloride 0.65 % nasal spray 2 spray intranasal Q2H PRN dry 04/26/24 04/26/24 09:10 Rx aerosol (Nasal Moisturizing) nasal passages #50 mL acetaminophen 500 mg tablet 1,000 mg (2 x 500 mg) PO Q6H PRN 05/24/24 Unknown Rx PRN Pain Score 1-10 #0 tabs cyanocobalamin (vitamin B-12) 1,000 mcg IM QMONTH SUPPLEMENT 07/15/24 07/26/24 History 1,000 mcg/mL injection solution docusate sodium 100 mg capsule 100 mg PO BID constipation 07/15/24 04/09/25 History gabapentin 600 mg tablet 1,200 mg PO QHS pain 07/15/24 04/08/25 History metoprolol succinate 25 mg 25 mg PO QDAY htn 07/15/24 04/09/25 History tablet,extended release 24 hr oxygen-air delivery systems 07/15/24 Unknown History fluticasone fur. 100 mcg-umeclid 1 inh inhalation QDAY Asthma #60 ea 09/09/24 Unknown Rx 62.5 mcg-vilant 25 mcg inhalat.powder (Trelegy Ellipta) losartan 100 mg tablet 50 mg (1/2 x 100 mg) PO BID heart 10/25/24 04/09/25 Rx #90 tabs dapagliflozin propanediol 10 mg 10 mg PO QDAY DM 12/09/24 04/09/25 History tablet (Farxiga) furosemide 40 mg tablet (Lasix) 40 mg PO QDAY edema #90 tabs 01/25/25 04/09/25 Rx oxycodone 5 mg tablet 5 mg PO Q6H PRN pain 03/29/25 Unknown History cranberry fruit concentrate 250 mg 250 mg PO DAILY 04/09/25 Unknown History chewable tablet (Azo Cranberry) levothyroxine 50 mcg tablet 50 mcg PO DAILY 04/09/25 04/09/25 History omeprazole 40 mg capsule,delayed 40 mg PO BID 04/09/25 04/09/25 History release pramipexole 0.5 mg tablet 0.5 mg PO TID 04/09/25 04/09/25 History rosuvastatin 20 mg tablet (Crestor) 20 mg PO DAILY 04/09/25 04/08/25 History sucralfate 1 gram tablet 1 g PO TID 04/09/25 04/09/25 History sulfamethoxazole 800 1 tab PO BID 04/09/25 04/09/25 History mg-trimethoprim 160 mg tablet trazodone 50 mg tablet 50 mg PO QHS 04/09/25 04/08/25 History Allergy/AdvReac Type Severity Reaction Status Date / Time No Known Allergies Allergy Verified 03/30/25 16:00 Family History Sister Alcoholism Cancer Mother Arthritis Father Arthritis Brother Cancer Surgical History History of transurethral resection of prostate Hx of toe surgery SURGICAL REMOVAL LEFT GREAT TOE History of right and left heart catheterization (12/04/16) History of colonoscopy (03/22/20) History of esophagogastroduodenoscopy (03/22/20) History of left heart catheterization (2016) History of coronary artery stent placement (12/23/06) Status post insertion of iliac artery stent (08/04/12) Status post surgical removal of neoplasm of skin History of tonsillectomy and adenoidectomy History of hammer toe correction History of open reduction and internal fixation (ORIF) procedure History of open reduction and internal fixation (ORIF) procedure History of lobectomy of lung History of cardioversion (12/2016) H/O coronary artery bypass surgery (02/14/06) Social History household members: spouse Smoking Status: Former smoker quit date: 11/14/93 how long ago did patient quit smokin years ago second hand exposure: No alcohol intake: current alcohol intake frequency: holidays/special occasions only Alcohol type: wine substance use type: does not use caffeine: Yes Type: coffee Number of servings: 1 what type of physical activity do you participate in: none frequency: does not exercise seatbelt use: always ROS Constitutional Constitutional: Reports fatigue and weight gain Eyes Eyes: Reports systems reviewed and no addt'l complaints, except as documented ENT HEENT: Reports systems reviewed and no addt'l complaints, except as documented Cardiovascular Cardiovascular: Reports dyspnea and leg edema Respiratory/Chest Respiratory/Chest: Reports dyspnea, dyspnea on exertion, portable oxygen @ home and wheezing Gastrointestinal Gastrointestinal: Reports abdominal pain Genitourinary Genitourinary: Reports as per HPI Musculoskeletal Musculoskeletal: Reports other Details: Amputation to left toes Integumentary Integumentary: Reports as per HPI Neurologic Neurologic: Reports as per HPI Psychiatric Psychiatric: Reports as per HPI Endocrine Endocrinology: Reports as per HPI Hematologic/Lymphatic Hematologic/Lymphatic: Reports as per HPI Allergic/Immunologic Allergic/Immunologic: Reports as per HPI Physical Exam Const alert and oriented x3 HEENT normocephalic Neck General: trachea midline Lymph Lymphatic: lymphedema Resp Effort and Inspection: tachypneic Auscultation: wheezes and diminished lung sounds Cardio Cardio Narrative: Atrial fibrillation and tachycardic Rate: tachycardic Rhythm: abnormal rhythm GI Inspection: abdominal distention Extremity General Extremity: edema bilateral (4+ pitting edema bilaterally) Skin no rashes or lesions noted Neuro CN's II-XII intact bilaterally Neuro Narrative: Patient has hoarse speech Psych Psych Narrative: I do feel that the patient lacks insight into his illness. Mood & Affect: depressed and anxious Charges/Coding Palliative Care Palliative Care: [id number] New Pt Consult 80+ min HPI Current admission Current Code Status: CODE STATUS changed to DNR CC?a with no intubation Associated Diagnosis: Metastatic lung cancer Consult Data Date of Consult: 04/15/25 Location of consult: PCU Reason for referral: Goals of care Referral source: Dr. aguilar Palliative care diagnosis (Summary list): Lung cancer with mets to the liver Palliative care services/treatment (Accepted, as consult): Accepted HPI Narrative HPI Narrative: PAIN ASSESSMENT Location: [Left upper quadrant] Quality: [Crampy] Severity/Quantity: [As high as 9 and 10] Timing/Frequency: [Controlled with pain medications every 6 hours] Context: [Cancer] Factors that make it better/worse: [When the pain medications wear off] Associated signs & symptoms: [Mood swings] Prior to meeting with the patient at bedside I reviewed extensive documentation labs and radiological studies. I then met with the patient Raul and his at bedside. I introduced myself and the concept of palliative care in which they voluntarily excepted my services. I had an extensive discussion with the patient and his about goals of care going forward given his lung cancer with metastasis to the liver and lymph nodes and the life-limiting diagnosis what his wishes would be going forward. I did present his diagnosis and multiple different ways in which Raul perseverated on the fact that he has not been sleeping very well in the hospital and that if I can just go home for 1 day and get some sleep I will be much better. His and I then just reminded him that he has been in the hospital multiple times for the same complaint and that going home right now may not be the best decision. I did indicate to him that all decisions are between him and his and that I would present the information for them to make the best educated decisions going forward. They stated appreciation. Jv was admitted on 04/09/2025. He came back to the emergency department because he was experiencing fevers. He just had a stay in the hospital for UTI in which he was just charged on 04/03/2025. He was diagnosed with lung cancer in 2017 and had a VATS procedure he was then told that his lung cancer had returned on 03/15/2025 it was seen on his scans that he now has liver lesions with metastasis to the liver. He has been offered palliative radiation for pain management. Raul does have a history of severe COPD in which he is on 2 L nasal cannula at baseline. He also has diabetes with neuropathy and atrial fibrillation. When he was admitted through the emergency department on this admission he was experiencing hypotension in the emergency department and they did place him on Levophed and moved him to the ICU. Once stabilized he was then weaned off of the Levophed and transferred to PCU. He does did appear to have a pneumonia on top of his lung cancer, at this time. The acknowledges that he is severely debilitated from his repeat hospitalizations. I do feel that the patient does lack some insight into his abilities as his insistence of wanting to return home. By the end of our discussion Raul was agreeable to going to rehab to get stronger in hopes of continuing his cancer care with palliative chemo and radiation. He did state that he has not been sleeping well and I did speak with Dr. Aguilar in which she was agreeable to increase his trazodone to 100 mg p.o. every night. Jv is interested in [facility] palliative care from an outpatient standpoint. He does not feel that he is ready for hospice at this time. Patient's was in agreement. All questions the patient and his had were answered. Palliative care will continue to follow for goals of care conversations as his clinical picture evolves. Patient has requested to transition to the TCU unit and be able to have his palliative radiation on Friday. Patient and are aware that the patient would most likely not be able to continue with palliative chemotherapy as he is too weak to be able to tolerate it, at this time. He understands that rehab may be the best plan for him going forward. Patient and are in agreement I did convey this information to social work/case management. Per hospitalist:JV DURHAM, is a 79 M who presents with fever. This is a 79-year-old male with history of a atrial fibrillation presents with fevers from home. He was just discharged on the for UTI. Was discharged with Levaquin but was told that he had the antibiotics he was on was resistant to Levaquin and switched over to Bactrim. But he was at home and then started having fever the past couple days and presented to the emergency room. In the emergency room, he was noted to be in septic shock with temp of 39 4, heart rate 130, blood pressure 82/50, after 30 cc/kg of IV fluids was down to 59/41 and the decision was made to start norepinephrine in the emergency room. Patient is coughing but nothing productive. Complains of pain due to metastatic foci from his lung cancer. But otherwise feels okay despite his severe illness. Palliative Assessment Advanced Directive - Current Admission Advance Directive: Advance Directive ON ADMISSION - REFERENCE Do you have a Healthcare Yes 04/09/25 20:13 Living Will? Is a Healthcare Living Will Yes, It is scanned in 04/09/25 20:13 present in the medical record? Do you have a Healthcare Power Yes 04/09/25 20:13 of Automation Tech? Is a Healthcare Power of No, requested patient bring 04/09/25 20:13 Automation Tech present in the copy into [facility] medical rec Name of Medical Power of 04/09/25 16:33 Automation Tech Do You Want Additional Declined 04/09/25 20:13 Information on Advanced Directives or Healthcare Proxy/DPOA comments: Psychosocial/Spiritual Information Living situation/Marital status: Patient is and lives with his Geographic location: [place] Supports: Family Christian/Claudia or spiritual preference: Episcopalian Spiritual distress: Patient states that he is fearful of dying. Recommend spiritual support Prior functional status: Prior to his hospitalizations he was able to walk with the assistance of a walker. Cultrual issues: None Information about the patient as a person: Patient is very close to his family and reiterated that multiple times that he gets most pleasure from being with his family Symptoms Palliative performance scale: 30% Palliative prognostic index: 7.0 Dyspnea symptoms: Severe Constipation symptoms: None Nausea symptoms: None Vomiting symptoms: None Depression symptoms: Mild Anorexia symptoms: None Cough symptoms: Mild Insomnia symptoms: Severe Diarrhea symptoms: None Fatigue symptoms: Moderate Weakness symptoms: Moderate Confusion symptoms: Mild Objective Data Objective Data Vital Signs: Vital Signs Temp Pulse Resp BP Pulse Ox O2 Del Method O2 Flow Rate 97.6 F L 77 16 130/76 H 96 Nasal Cannula 3 04/15/25 03:30 04/15/25 06:51 04/15/25 06:51 04/15/25 03:30 04/15/25 06:51 04/15/25 06:51 04/15/25 06:51 FiO2 3 04/12/25 08:23 Oxygen Flow Rate (L/min) 3 Oxygen Delivery Method Nasal Cannula Weight: 275 lb 9.245 oz Body Mass Index (BMI) 39.5 Intake & Output: Intake and Output for Last 24 Hours 04/13/25 04/14/25 04/15/25 23:59 23:59 23:59 Intake Total 1085 / 1085 1530 / 1530 Output Total 651 / 651 Balance 1085 / 1085 1530 / 1530 -651 / -651 Lab / Micro Data Attestation: I reviewed the patient's lab results. Lab results narrative: Slightly worsening kidney function with a BUN of 22 from 25 creatinine to 1.32 from 1.24 and GFR 55 from 59. 04/15/25 04:31 04/15/25 04:31 Labs: Laboratory Results - last 24 hr 04/14/25 03:55: [place] [id number] H 04/14/25 12:22: POC Glucose 127 H 04/14/25 16:20: POC Glucose 105 04/14/25 21:03: POC Glucose 120 H 04/15/25 04:31: WBC 22.9 H, RBC 3.43 L, Hgb 9.0 L, Hct 29.4 L, MCV 85.7, MCH 26.2 L, MCHC 30.6 L, RDW Std Deviation 54.4 H, RDW Coeff of Iram 18.0 H, Plt Count 203, MPV 10.6, Immature Gran % (Auto) 0.900, Neut % (Auto) 90.5 H, Lymph % (Auto) 2.7 L, Otoe % (Auto) 5.7, Eos % (Auto) 0.1, Baso % (Auto) 0.1, Absolute Neuts (auto) 20.7 H, Absolute Lymphs (auto) 0.61 L, Nucleated RBC % 0, Differential Comment SCANNED, Reactive Lymphocytes RARE, Plt Morphology Comment LARGE, Sodium 142, Potassium 3.8, Chloride 107, Carbon Dioxide 27.7, Anion Gap 7, BUN 22 H, Creatinine 1.32 H, Estim Creat Clear Calc 60.20, Est GFR (MDRD) Non-Af 55 L, BUN/Creatinine Ratio 17.0, Glucose 102 H, Calcium 8.7 04/15/25 06:20: POC Glucose 106 Micro: Microbiology 04/09/25 16:46 Blood Culture (Wb) - Anticubital Right Blood Culture - Final No growth in 5 days. 04/09/25 16:46 Blood Culture (Wb) - Right Forearm Blood Culture - Final No growth in 5 days. 04/10/25 09:15 Sputum, Expectorated/Coughed Gram Stain - Final 04/10/25 09:15 Sputum, Expectorated/Coughed Respiratory Culture - Final Presumptive C albicans 04/09/25 16:53 Urine, Catheterized Urine Culture - Final Enterococcus faecium 04/09/25 16:53 Urine Catheter - [place] Legionella Antigen - Final 04/09/25 16:53 Urine Catheter - [place] Streptococcus pneumoniae Antigen (M - Final 04/09/25 16:53 Mucosa - Nose SARS-CoV-2, Influenza & RSV (PCR) - Final Radiography Diagnostic Testing: Radiology Impression Chest X-Ray 04/14/25 10:51 IMPRESSION: Cardiomegaly. Vascular congestion and CHF. Reading Location: [id number] Rhythm Strip Rhythm Strip: A-fib Rate: 135 Ectopy: None Impressions & Recommendations Patient & Family Issues discussed with the patient and family: Goals of care going forward with the patient and family Patient goal: Patient wants to continue medical management Family goal: Patient's family wants what is best for him. They would like him to go to rehab to get stronger because she knows that she can currently not take care of him herself at home Ethical & Legal Ethical and legal: None Impressions Impressions: Patient was given the option of hospice in which she states he is not ready for. I did recommend palliative care on an outpatient basis which she is open to Recommentation Palliative recommendations: Outpatient palliative care Encouter Achieved as a result of this Palliative Care Encounter: [[id number], [phone], [phone] ] minutes were spent in total for this visit which consisted, primarily of counseling and education dealing with the complex and emotionally intense issues of symptom management and palliative care in the setting of serious and potentially life-threatening illness. Review of documentation, labs and radiological studies. ?Patient/family had the opportunity to ask questions Plan (1) Hypoxemia: PLAN: Medical management per primary team (2) DELVIS (acute kidney injury): PLAN: Medical management per primary team (3) Atrial fibrillation with RVR: PLAN: Medical management per primary team (4) Regional lymph node metastasis present: PLAN: Medical management per primary team (5) Insomnia: PLAN: *Okay with Dr. Aguilar to increase the patient's nighttime trazodone to 100 mg (6) Adrenal mass: PLAN: Medical management per primary team (7) Goals of care, counseling/discussion: PLAN: *Patient would like to continue medical management of his cancer. *Patient would like to go to rehab to get stronger so that he can continue his treatments *Return home once he is strong enough (8) Palliative care encounter: PLAN: *Palliative care outpatient
--- NOTE | 2025-04-15 11:08 | PN.HOSP_ITS ---
Reason for Visit
--- NOTE | 2025-04-15 11:08 | PCM.PN.HOSP ---
Reason for Visit Chief Complaint: Fever Objective Data Objective Data Vital Signs: Vital Signs Temp Pulse Resp BP Pulse Ox O2 Del Method O2 Flow Rate 96.4 F L 97 19 H 115/59 L 98 Nasal Cannula 4 04/15/25 10:11 04/15/25 10:11 04/15/25 10:11 04/15/25 10:11 04/15/25 10:11 04/15/25 10:11 04/15/25 10:11 FiO2 3 04/12/25 08:23 Oxygen Flow Rate (L/min) 4 Oxygen Delivery Method Nasal Cannula Weight: 275 lb 9.245 oz Body Mass Index (BMI) 39.5 Intake & Output: Intake and Output for Last 24 Hours 04/13/25 04/14/25 04/15/25 23:59 23:59 23:59 Intake Total 1085 / 1085 1530 / 1530 530 / 530 Output Total 651 / 651 Balance 1085 / 1085 1530 / 1530 -121 / -121 Lab / Micro Data 04/15/25 04:31 04/15/25 04:31 Labs: Laboratory Results - last 24 hr 04/14/25 03:55: [place] [id number] H 04/14/25 12:22: POC Glucose 127 H 04/14/25 16:20: POC Glucose 105 04/14/25 21:03: POC Glucose 120 H 04/15/25 04:31: WBC 22.9 H, RBC 3.43 L, Hgb 9.0 L, Hct 29.4 L, MCV 85.7, MCH 26.2 L, MCHC 30.6 L, RDW Std Deviation 54.4 H, RDW Coeff of Iram 18.0 H, Plt Count 203, MPV 10.6, Immature Gran % (Auto) 0.900, Neut % (Auto) 90.5 H, Lymph % (Auto) 2.7 L, [place] % (Auto) 5.7, Eos % (Auto) 0.1, Baso % (Auto) 0.1, Absolute Neuts (auto) 20.7 H, Absolute Lymphs (auto) 0.61 L, Nucleated RBC % 0, Differential Comment SCANNED, Reactive Lymphocytes RARE, Plt Morphology Comment LARGE, Sodium 142, Potassium 3.8, Chloride 107, Carbon Dioxide 27.7, Anion Gap 7, BUN 22 H, Creatinine 1.32 H, Estim Creat Clear Calc 60.20, Est GFR (MDRD) Non-Af 55 L, BUN/Creatinine Ratio 17.0, Glucose 102 H, Calcium 8.7 04/15/25 06:20: POC Glucose 106 Micro: Microbiology 04/09/25 16:46 Blood Culture (Wb) - Anticubital Right Blood Culture - Final No growth in 5 days. 04/09/25 16:46 Blood Culture (Wb) - Right Forearm Blood Culture - Final No growth in 5 days. 04/10/25 09:15 Sputum, Expectorated/Coughed Gram Stain - Final 04/10/25 09:15 Sputum, Expectorated/Coughed Respiratory Culture - Final Presumptive C albicans 04/09/25 16:53 Urine, Catheterized Urine Culture - Final Enterococcus faecium 04/09/25 16:53 Urine Catheter - Savage Legionella Antigen - Final 04/09/25 16:53 Urine Catheter - Savage Streptococcus pneumoniae Antigen (M - Final 04/09/25 16:53 Mucosa - Nose SARS-CoV-2, Influenza & RSV (PCR) - Final Radiography Diagnostic Testing: Radiology Impression Chest X-Ray 04/14/25 10:51 IMPRESSION: Cardiomegaly. Vascular congestion and CHF. Reading Location: [id number] Rhythm Strip Rhythm Strip: A-fib Rate: 135 Ectopy: None Physical Exam Narrative Seen and examined Fever at home 102.8 Fahrenheit. On 88% on 4 L of home oxygen as per EMS. The patient laying on the bed, both legs are very swollen and erythematous. Mild shortness of breath. Not able to get out of the bed without help Physical exam: General: Alert, Oriented x3, Cooperative. BMI 39.0 KG per square meter fatigue HEENT: Atraumatic, PERRLA, EOMI, Normocephalic. Oral: No Gingival or Mucosal Lesions/ Ulcerations Neck: Supple, No JVD, Negative Carotid Bruits Chest wall/Lungs: Air entry diminished in bilateral lung bases. Mild bilateral fine crepitations Cardiovascular: Irregular rhythm, PVCs sinus rhythm, normal S1,S2, systolic murmur Abdomen: Bowel Sounds Present, Soft, Non Tender, Non-Distended : Burning micturition at home. Chronic urinary continence, increased frequency/urgency. No renal angle tenderness. No suprapubic tenderness. Extremities: Below-knee lower extremity edema 3+ edema, Capillary Refill Less than 3 Seconds Skin: No rashes, No breakdown Musculoskeletal: No Tenderness to Palpation of Joints or Extremities Neurological: Cranial nerves II-XII grossly intact, DTR 2+/4. No acute focal neurological deficit. Psych/Mental Status: Flat affect. Assessment & Plan Assessment/Plan (1) Septic shock: (2) Pneumonia: PLAN: Plan Patient is a 79-year-old gentleman with multiple comorbidities presented with fever patient was found to be hypotensive and assessment of septic shock secondary to pneumonia made admitted to the intensive care unit for further management 1. Septic shock most likely due to UTI, pneumonia less likely ? Imaging studies obtained on admission demonstrated bibasilar airspace opacities as well as cardiomegaly with pulmonary vascular congestion. Patient admitted to the intensive care unit, managed with IV fluid resuscitation per protocol placed on broad-spectrum antibiotic therapy cultures sent ? 04/12/2025; patient currently not on any pressors. Patient WBC count however remains elevated. Plan is for patient to be transferred to the progressive care unit ? 04/13/2025;Patient seen still has a productive cough. WBC count remains elevated however trending in the right direction. ? 04/14/2025; patient WBC count up this a.m. 04/15: Leukocytosis improving. 2. Pneumonia with suspected gram-negative organisms ? Patient managed with broad-spectrum antibiotic therapy cultures sent also placed on supplemental oxygen titrated to keep saturation greater than 90 ? 04/13/2025; sputum culture only positive for Vonnie albicans do suspect colonization ? 04/14/2025; patient appears to have a productive cough ordered repeat chest x-ray 04/15 chest x-ray initially reviewed and more suggestive of pulmonary congestion/CHF. Sputum cultures. Vonnie albicans probably contamination. 3. Acute complicated UTI ? Patient urine cultures so far positive for Enterococcus faecium, sensitivities reviewed adjusted antibiotic therapy 04/15: Urine culture growing more than 100,000 colonies of Enterococcus VCM, resistant to amoxicillin, Cipro/Levaquin, nitrofurantoin, streptomycin/tetracycline. It is MDR organism. ID is consulted and recommended continue IV vancomycin which it is sensitive and discharged on linezolid with plan of 7 to 10 days of total antibiotic. 4. Acute kidney injury ? Superimposed on chronic kidney disease stage IIIb. Creatinine from 04/01/2025 was 1.76 creatinine on admission was 2.26 patient started on IV fluid with subsequent monitoring of electrolytes ? 04/13/2025; patient creatinine continues to improve currently down to 1.33 04/15: BUN/creatinine 22/1.32. Similar to yesterday. No significant change. 5. Advanced non-small cell lung CA ? Patient had previously undergone VATS procedure with left upper lobe wedge resection that revealed adenocarcinoma subsequent evaluation demonstrated advanced tumor and patient is currently undergoing palliative care 6. Acute metabolic encephalopathy ? Present on admission resolved at the time of my assessment 7. Chronic hypoxic respiratory failure ? Secondary to COPD patient is on baseline home oxygen 8. Hypothyroidism ? Patient is on levothyroxine home dose continued 9. Coronary artery disease ? Status post CABG. Patient remains on guideline directed medical therapy 10. Chronic A-fib ? Rate control not optimal. Patient is on metoprolol did continue currently not on systemic anticoagulation reason unclear. Plan is to discuss with patient prior to being discharged 11. Elevated troponin ? Secondary to demand ischemia from patient sepsis and tachycardia. 2D echo ordered to assess for regional wall motion abnormalities 12. Class II obesity with BMI of 39.1 [place] per square meter ? Complicating care weight loss advised 13. Degenerative joint disease ? Pain meds as needed 14. Anemia ? Secondary to chronic disorder monitoring H&H and transfuse if patient becomes symptomatic or hemoglobin falls below 7 15. Acute on chronic congestive heart failure ? With preserved ejection fractionPatient is on Farxiga as well as furosemide. Repeat echo ordered to assess for EF. Previous echo had demonstrated markedly elevated right ventricular systolic pressures consistent with pulmonary hypertension ? Patient was also assessed to be in acute congestive heart failure ordered 80 mg of Lasix x 1. Also requested for checks x-ray. 04/15: Chest x-ray suggestive of heart failure. 2D echo shows EF 55%, moderately dilated RV with moderate to severe RV systolic dysfunction, RVSP 74 mmHg. Severe TR. 2+ MR, mild aortic stenosis, mean gradient 7 mmHg. 16. Peripheral neuropathy Patient is on gabapentin 17. DVT prophylaxis ? Subcu heparin Total time of the visit including total time spent in counseling or coordination of care, (more than 50% of the total time, spent in obtaining medical information from nurses and other ancillary care providers ,explaining to the patient about labs, imaging, diagnosis and management of active complex medical conditions), complicated UTI with MDR Enterococcus VCM, discussion with ID consult review of labs and imaging is 35 minutes. Living will/advanced directive/end of life care: Patient does have living will or advanced directive. His is power of corporate associate attorney for health. Palliative care consult was done. After discussion of benefits/risks procedures involved with full code, DNR CC arrest and DNR CC, the patient and his accepted for DNR CCA, no intubation Patient doesn't want artificial life support including intubation, tube feed, ventilator and/chest compression, central venous catheter, vasopressor and DC shock if needed. CODE STATUS was changed from full code to DNR CC arrest with no intubation Total time spent in [id number] encounter in discussion of advanced directive 17 minutes. Microbiology Past 72 Hours 04/09/25 16:46 Blood Culture (Wb) - Anticubital Right Blood Culture - Final No growth in 5 days. 04/09/25 16:46 Blood Culture (Wb) - Right Forearm Blood Culture - Final No growth in 5 days. 04/10/25 09:15 Sputum, Expectorated/Coughed Gram Stain - Final 04/10/25 09:15 Sputum, Expectorated/Coughed Respiratory Culture - Final Presumptive C albicans Laboratory Results 04/14/25 16:20: POC Glucose 105 04/14/25 21:03: POC Glucose 120 H 04/15/25 04:31: WBC 22.9 H, RBC 3.43 L, Hgb 9.0 L, Hct 29.4 L, MCV 85.7, MCH 26.2 L, MCHC 30.6 L, RDW Std Deviation 54.4 H, RDW Coeff of Iram 18.0 H, Plt Count 203, MPV 10.6, Immature Gran % (Auto) 0.900, Neut % (Auto) 90.5 H, Lymph % (Auto) 2.7 L, [place] % (Auto) 5.7, Eos % (Auto) 0.1, Baso % (Auto) 0.1, Absolute Neuts (auto) 20.7 H, Absolute Lymphs (auto) 0.61 L, Nucleated RBC % 0, Differential Comment SCANNED, Reactive Lymphocytes RARE, Plt Morphology Comment LARGE, Sodium 142, Potassium 3.8, Chloride 107, Carbon Dioxide 27.7, Anion Gap 7, BUN 22 H, Creatinine 1.32 H, Estim Creat Clear Calc 60.20, Est GFR (MDRD) Non-Af 55 L, BUN/Creatinine Ratio 17.0, Glucose 102 H, Calcium 8.7 04/15/25 06:20: POC Glucose 106 04/15/25 11:39: POC Glucose 124 H Clinical Impression(s) from Imaging Studies Chest X-Ray 04/09/25 16:41 IMPRESSION: 1. Mild cardiomegaly and mild pulmonary vascular congestion. 2. Slightly decreased bibasilar airspace opacities. Reading Location[facility] Chest X-Ray 04/10/25 04:20 IMPRESSION: Unremarkable median sternotomy wires. Right Port-A-Cath is in good position with its tip in the superior vena cava. Mild central pulmonary venous congestion. There is no demonstrated pleural abnormality. Enlarged cardiac silhouette. Reading Location[id number] Echocardiogram 04/10/25 10:47 Interpretation Summary The left ventricular ejection fraction is 55 %. Moderately dilated right ventricle with moderate to severe RV systolic dysfunction. There is severe biatrial dilatation. Moderate (2+) mitral valve insufficiency. Severe tricuspid valve insufficiency. Estimated RVSP 74 mmHg. Moderately calcified aortic valve. Mild aortic valve stenosis. Mean peak gradient 7 mmHg. Ordering Physician: Titi Moore Referring Physician: Swati Banerjee M.D. Performed By: Elva Zuniga RDCS Chest X-Ray 04/14/25 10:51 IMPRESSION: Cardiomegaly. Vascular congestion and CHF. Reading Location: [id number] Charges/Coding Visit Charges Inpatient E&M: 37995 Subs Hosp L3 Procedures Hospitalists Procedures: 22213 Advncd Care Plan 30 Min
--- NOTE | 2025-04-15 11:33 | CASEMGMT ---
Addendum entered by Kaylee Hsu 04/15/25 15:40: Patient has been accepted to TCU and can discharge over the weekend when medically ready. RN CM updated patient. Patient voiced appreciation and asked this RN CM to call and update . RN CM called and updated Ellen who voiced appreciation. Green Sheet placed on chart. Original Note: FLORIDA MARTINES updated by Palliative SHEEP BONER that patient and would like [facility]. RN CM in to discuss discharge planning with patient and . Patient and states they would like patient to go to [facility] and start his palliative radiation at [facility] on Friday. Patient and declines SNF list at this time. RN BOBBI updated patient and that patient would not be able to start chemotherapy while at SNF and Palliative SHEEP BONER confirmed that while patient is weak he would not be getting chemotherapy. Patient and voiced understanding and agreeable to no chemo at this time and prefer TCU at discharge. Patient and had no further questions or concerns. RN BOBBI sent referral to Pao at [facility], awaiting response. CM will continue to follow this patient and plan for a safe discharge.
[2025-04-15] MEDS: 0.9% Saline Lock 10 ML Syringe IV ×2 (11:40→16:58)
[2025-04-15] MEDS: Heparin Injection (Vial) 5,000 UNIT/ML VIAL 5000 UNIT SC ×2 (11:40→20:47)
[2025-04-15] MEDS: Metoprolol(XL)Succ 25 MG Tablet PO (11:41)
--- NOTE | 2025-04-15 13:22 | PCM.CONS.GEN ---
Assessment & Plan Assessment/Plan (1) DELVIS (acute kidney injury): (2) Acute UTI: (3) Septic shock: PLAN: suspect uti as source. Ucx with e faecium, improving with iv vanc. Plan on 7-10 days total of abx, can finish course with po linezolid 600mg bid at discharge (low risk of interaction with trazodone). Will follow, thank you HPI Consult Data Date of Consult: 04/15/25 HPI Narrative Reason for Consultation: septic shock HPI Narrative: JV DURHAM, is a 79 M with metastatic lung cancer, R chest port in place, presented 04/09 with acute onset fever after recent admit for uti, treated with levaquin then bactrim. Had weakness, hypotension, admitted from ED to icu with septic shock. Now on vanc, fever resolved, out of icu, feeling better. No abd pain, no issues with port. Full ROS performed and neg except as noted above. 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 Regional lymph node metastasis present Metastasis to liver Pain Cancer of lower lobe of right lung Nodule of parotid gland History of home oxygen therapy Cardiology follow-up encounter Gastric ulcer History of lung cancer Adrenal mass History of Parkinson's disease History of atrial fibrillation Hx of cancer of lung Pulmonary hypertension Emphysema, unspecified History of echocardiogram History of stress test Hypertension History of atrial fibrillation Hx of fracture of ankle COVID Chronic combined systolic and diastolic CHF (congestive heart failure) Severe pulmonary arterial systolic hypertension Wears glasses Uses wheelchair Walker as ambulation aid Ambulates with cane Arthritis Anemia Migraine headache Injury of head and neck Parkinson's disease Gastric reflux Former smoker BiPAP (biphasic positive airway pressure) dependence COPD (chronic obstructive pulmonary disease) On home oxygen therapy History of pain when walking History of edema Amputated great toe of left foot Amputation of one or more toes Chronic ulcer of left foot with fat layer exposed Hammer toe of left foot Toe osteomyelitis Right ventricular dilation, secondary Right ventricular systolic dysfunction Respiratory failure with hypoxia Diverticular disease Polyp of colon, adenomatous Chronic gastritis Multiple premature ventricular complexes Longstanding persistent atrial fibrillation Hyperlipidemia Acute kidney injury NSTEMI (non-ST elevated myocardial infarction) (12/02/19) Sepsis Gastric AVM Adenocarcinoma of lung, stage 1 GI bleed Iron deficiency anemia due to chronic blood loss Atherosclerosis of coronary artery of [place] heart without angina pectoris Cancer of upper lobe of left lung 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 Benign essential hypertension HEBER (obstructive sleep apnea) Dementia Parkinsons Essential tremor GERD (gastroesophageal reflux disease) Alcohol dependence Home Medications ?Medication ?Instructions ?Recorded ?Last Taken ?Type ferrous sulfate 325 mg (65 mg 65 mg PO DAILY supplement 02/01/19 04/09/25 History iron) tablet cholecalciferol (vitamin D3) 125 5,000 unit PO DAILY cholesterol 03/30/19 04/09/25 History mcg (5,000 unit) capsule peg [id number] 1 1 drp EACH EYE Q1H PRN DRY EYES #0 04/26/24 04/25/24 10:10 Rx %-0.2 %-0.2 % eye drops mL (Artificial Tears ([id number])) sodium chloride 0.65 % nasal spray 2 spray intranasal Q2H PRN dry 04/26/24 04/26/24 09:10 Rx aerosol (Nasal Moisturizing) nasal passages #50 mL acetaminophen 500 mg tablet 1,000 mg (2 x 500 mg) PO Q6H PRN 05/24/24 Unknown Rx PRN Pain Score 1-10 #0 tabs cyanocobalamin (vitamin B-12) 1,000 mcg IM QMONTH SUPPLEMENT 07/15/24 07/26/24 History 1,000 mcg/mL injection solution docusate sodium 100 mg capsule 100 mg PO BID constipation 07/15/24 04/09/25 History gabapentin 600 mg tablet 1,200 mg PO QHS pain 07/15/24 04/08/25 History metoprolol succinate 25 mg 25 mg PO QDAY htn 07/15/24 04/09/25 History tablet,extended release 24 hr oxygen-air delivery systems 07/15/24 Unknown History fluticasone fur. 100 mcg-umeclid 1 inh inhalation QDAY Asthma #60 ea 09/09/24 Unknown Rx 62.5 mcg-vilant 25 mcg inhalat.powder (Trelegy Ellipta) losartan 100 mg tablet 50 mg (1/2 x 100 mg) PO BID heart 10/25/24 04/09/25 Rx #90 tabs dapagliflozin propanediol 10 mg 10 mg PO QDAY DM 12/09/24 04/09/25 History tablet (Farxiga) furosemide 40 mg tablet (Lasix) 40 mg PO QDAY edema #90 tabs 01/25/25 04/09/25 Rx oxycodone 5 mg tablet 5 mg PO Q6H PRN pain 03/29/25 Unknown History cranberry fruit concentrate 250 mg 250 mg PO DAILY 04/09/25 Unknown History chewable tablet (Azo Cranberry) levothyroxine 50 mcg tablet 50 mcg PO DAILY 04/09/25 04/09/25 History omeprazole 40 mg capsule,delayed 40 mg PO BID 04/09/25 04/09/25 History release pramipexole 0.5 mg tablet 0.5 mg PO TID 04/09/25 04/09/25 History rosuvastatin 20 mg tablet (Crestor) 20 mg PO DAILY 04/09/25 04/08/25 History sucralfate 1 gram tablet 1 g PO TID 04/09/25 04/09/25 History sulfamethoxazole 800 1 tab PO BID 04/09/25 04/09/25 History mg-trimethoprim 160 mg tablet trazodone 50 mg tablet 50 mg PO QHS 04/09/25 04/08/25 History Allergy/AdvReac Type Severity Reaction Status Date / Time No Known Allergies Allergy Verified 03/30/25 16:00 Family History Sister Alcoholism Cancer Mother Arthritis Father Arthritis Brother Cancer Surgical History History of transurethral resection of prostate Hx of toe surgery SURGICAL REMOVAL LEFT GREAT TOE History of right and left heart catheterization (12/04/16) History of colonoscopy (03/22/20) History of esophagogastroduodenoscopy (03/22/20) History of left heart catheterization (2016) History of coronary artery stent placement (12/23/06) Status post insertion of iliac artery stent (08/04/12) Status post surgical removal of neoplasm of skin History of tonsillectomy and adenoidectomy History of hammer toe correction History of open reduction and internal fixation (ORIF) procedure History of open reduction and internal fixation (ORIF) procedure History of lobectomy of lung History of cardioversion (12/2016) H/O coronary artery bypass surgery (02/14/06) Social History household members: spouse Smoking Status: Former smoker quit date: 11/14/93 how long ago did patient quit smokin years ago second hand exposure: No alcohol intake: current alcohol intake frequency: holidays/special occasions only Alcohol type: wine substance use type: does not use caffeine: Yes Type: coffee Number of servings: 1 what type of physical activity do you participate in: none frequency: does not exercise seatbelt use: always Physical Exam Const alert, oriented x3 and no apparent distress General Appearance: cooperative HEENT normocephalic and head/scalp atraumatic Eyes PERRL and EOMs intact bilaterally Neck supple and No nodes Resp normal air movement and clear to auscultation bilaterally Cardio regular rate and regular rhythm GI soft to palpation, non-tender and non-distended Extremity General Extremity: edema Skin no rashes or lesions noted Skin Narrative: R chest port no inflammation Neuro CN's II-XII intact bilaterally Lab / Micro Data Attestation: I reviewed the patient's lab results. 04/15/25 04:31 04/15/25 04:31 Labs: Laboratory Results - last 24 hr 04/14/25 16:20: POC Glucose 105 04/14/25 21:03: POC Glucose 120 H 04/15/25 04:31: WBC 22.9 H, RBC 3.43 L, Hgb 9.0 L, Hct 29.4 L, MCV 85.7, MCH 26.2 L, MCHC 30.6 L, RDW Std Deviation 54.4 H, RDW Coeff of Iram 18.0 H, Plt Count 203, MPV 10.6, Immature Gran % (Auto) 0.900, Neut % (Auto) 90.5 H, Lymph % (Auto) 2.7 L, [place] % (Auto) 5.7, Eos % (Auto) 0.1, Baso % (Auto) 0.1, Absolute Neuts (auto) 20.7 H, Absolute Lymphs (auto) 0.61 L, Nucleated RBC % 0, Differential Comment SCANNED, Reactive Lymphocytes RARE, Plt Morphology Comment LARGE, Sodium 142, Potassium 3.8, Chloride 107, Carbon Dioxide 27.7, Anion Gap 7, BUN 22 H, Creatinine 1.32 H, Estim Creat Clear Calc 60.20, Est GFR (MDRD) Non-Af 55 L, BUN/Creatinine Ratio 17.0, Glucose 102 H, Calcium 8.7 04/15/25 06:20: POC Glucose 106 04/15/25 11:39: POC Glucose 124 H Micro: Microbiology 04/09/25 16:46 Blood Culture (Wb) - Anticubital Right Blood Culture - Final No growth in 5 days. 04/09/25 16:46 Blood Culture (Wb) - Right Forearm Blood Culture - Final No growth in 5 days. Rhythm Strip Rhythm Strip: A-fib Rate: 135 Ectopy: None Imaging Radiology Impression Chest X-Ray 04/14/25 10:51 IMPRESSION: Cardiomegaly. Vascular congestion and CHF. Reading Location: [id number]
[2025-04-16] VITALS (27 sets, daily range): BP systolic 77–149; BP diastolic 45–92; PULSE 68–157; RESP 18–42; TEMP 36.4–37; O2SAT 95–100; BMI 40.2
[2025-04-16 04:37] LABS: Hematocrit 30.0 % (40-54); Hemoglobin 9.2 g/dL (13.0-16.5); Immature Granulocytes Count 0.310 X10^3/uL (0.0-0.0); Mean Corp Hgb Conc 30.7 g/dL (32-36); Mean Corpuscular Volume 84.5 fL (80-94); Mean Platelet Vol. 10.1 fl (6.2-12.0); NRBC Flagged by Analyzer 0 % (0-5); Platelet Count 212 K/mm3 (150-450); RBC Distribution Width CV 17.8 % (11.6-14.6); RBC Distribution Width SD 53.4 fl (35.1-43.9); Red Blood Count 3.55 M/mm3 (4.6-6.2); White Blood Count 21.2 K/mm3 (4.4-11.0)
[2025-04-16 05:06] LABS: Anion Gap 8 (5-15); BUN 24 mg/dL (4-19); BUN/Creat Ratio 19.0 RATIO (10-20); Calcium,Total 9.1 mg/dL (7.6-11.0); Carbon Dioxide 27.3 mmol/L (21.0-32.0); Chloride 105 mmol/L (98-108); Estimated Creatinine Clearance 63.58 ml/min (50-250); Glucose 106 mg/dL (70-99); Potassium 3.6 mmol/L (3.3-5.1)
[2025-04-16 05:10] LABS: Vancomycin, Trough Level 19.5 ug/mL (5.0-15.0)
[2025-04-16] MEDS: Vancomycin HCl 1,500 MG in 0.9% Normal Saline (500mL Bag) 500 ML 250 MG IV (05:27)
--- NOTE | 2025-04-16 05:45 | PCM.RX.CS ---
Consult Antibiotic Management Pharmacy has been consulted to manage selected antibiotic: Vancomycin Type of Intervention Type of Consult: Follow-up Labs Labs: Sodium 140 mmol/L (133-145) 04/16/25 04:27 Potassium 3.6 mmol/L (3.3-5.1) 04/16/25 04:27 Chloride 105 mmol/L (98-108) 04/16/25 04:27 Carbon Dioxide 27.3 mmol/L (21.0-32.0) 04/16/25 04:27 Anion Gap 8 (5-15) 04/16/25 04:27 BUN 24 mg/dL (4-19) H 04/16/25 04:27 Creatinine 1.25 mg/dL (0.70-1.20) H 04/16/25 04:27 Est GFR (MDRD) Non-Af 59 (>60) L 04/16/25 04:27 BUN/Creatinine Ratio 19.0 RATIO (10-20) 04/16/25 04:27 Glucose 106 mg/dL (70-99) H 04/16/25 04:27 Vancomycin Trough 19.5 ug/mL (5.0-15.0) H 04/16/25 04:27 Random Vancomycin 17.0 ug/mL (0.0-15.0) H 04/14/25 03:55 Microbiology Microbiology: Microbiology 04/09/25 16:46 Blood Culture (Wb) - Anticubital Right Blood Culture - Final No growth in 5 days. 04/09/25 16:46 Blood Culture (Wb) - Right Forearm Blood Culture - Final No growth in 5 days. 04/10/25 09:15 Sputum, Expectorated/Coughed Gram Stain - Final 04/10/25 09:15 Sputum, Expectorated/Coughed Respiratory Culture - Final Presumptive C albicans 04/09/25 16:53 Urine, Catheterized Urine Culture - Final Enterococcus faecium 04/09/25 16:53 Urine Catheter - Savage Legionella Antigen - Final 04/09/25 16:53 Urine Catheter - [place] Streptococcus pneumoniae Antigen (M - Final 04/09/25 16:53 Mucosa - Nose SARS-CoV-2, Influenza & RSV (PCR) - Final Goal Trough Goal Trough: 15-20 mcg/mL Pharmacy Plan for Drug Dosing Pharmacy Plan for Drug Dosing: Pharmacy Service will continue to monitor and adjust dosing as required. TROUGH 19.5 @ 22.5 HOURS. NO CHANGES, FOLLOW UP TROUGH IN 2 DAYS Follow-Up Labs Follow-Up Labs: Trough: Vancomycin Date/Time Labs Ordered Labs to be done on [date and time ordered]: 04/18 @ 6806
[2025-04-16] MEDS: Budesonide Respules 0.5 MG/2 ML AMPUL.NEB. INHALATION ×2 (06:44→17:48)
[2025-04-16] MEDS: Metoprolol(XL)Succ 25 MG Tablet PO (09:17)
[2025-04-16] MEDS: Heparin Injection (Vial) 5,000 UNIT/ML VIAL 5000 UNIT SC (09:18)
[2025-04-16] MEDS: 0.9% Saline Lock 10 ML Syringe IV ×6 (09:19→21:11)
--- NOTE | 2025-04-16 11:32 | PN.HOSP_ITS ---
Reason for Visit
--- NOTE | 2025-04-16 11:32 | PCM.PN.HOSP ---
Reason for Visit Chief Complaint: Fever Objective Data Objective Data Vital Signs: Vital Signs Temp Pulse Resp BP Pulse Ox O2 Del Method O2 Flow Rate 97.7 F L 89 22 H 118/64 96 Nasal Cannula 3 04/16/25 09:11 04/16/25 09:17 04/16/25 09:11 04/16/25 09:11 04/16/25 09:11 04/16/25 09:27 04/16/25 09:27 FiO2 3 04/12/25 08:23 Oxygen Flow Rate (L/min) 3 Oxygen Delivery Method Nasal Cannula Weight: 280 lb 10.375 oz Body Mass Index (BMI) 40.2 Intake & Output: Intake and Output for Last 24 Hours 04/14/25 04/15/25 04/16/25 23:59 23:59 23:59 Intake Total 1530 / 1530 1430 / 1830 1330 / 1330 Output Total 2251 / 2951 950 / 950 Balance 1530 / 1530 -821 / -1121 380 / 380 Lab / Micro Data 04/16/25 04:27 04/16/25 04:27 Labs: Laboratory Results - last 24 hr 04/15/25 11:39: POC Glucose 124 H 04/15/25 16:56: POC Glucose 129 H 04/15/25 21:03: POC Glucose 120 H 04/16/25 04:27: WBC 21.2 H, RBC 3.55 L, Hgb 9.2 L, Hct 30.0 L, MCV 84.5, MCH 25.9 L, MCHC 30.7 L, RDW Std Deviation 53.4 H, RDW Coeff of Iram 17.8 H, Plt Count 212, MPV 10.1, Immature Gran % (Auto) 1.500 H, Neut % (Auto) 86.8 H, Lymph % (Auto) 3.3 L, [place] % (Auto) 6.9, Eos % (Auto) 1.4, Baso % (Auto) 0.1, Absolute Neuts (auto) 18.4 H, Absolute Lymphs (auto) 0.69 L, Nucleated RBC % 0, Sodium 140, Potassium 3.6, Chloride 105, Carbon Dioxide 27.3, Anion Gap 8, BUN 24 H, Creatinine 1.25 H, Estim Creat Clear Calc 63.58, Est GFR (MDRD) Non-Af 59 L, BUN/Creatinine Ratio 19.0, Glucose 106 H, Calcium 9.1, Vancomycin Trough 19.5 H Micro: Microbiology 04/09/25 16:46 Blood Culture (Wb) - Anticubital Right Blood Culture - Final No growth in 5 days. 04/09/25 16:46 Blood Culture (Wb) - Right Forearm Blood Culture - Final No growth in 5 days. 04/10/25 09:15 Sputum, Expectorated/Coughed Gram Stain - Final 04/10/25 09:15 Sputum, Expectorated/Coughed Respiratory Culture - Final Presumptive C albicans 04/09/25 16:53 Urine, Catheterized Urine Culture - Final Enterococcus faecium 04/09/25 16:53 Urine Catheter - Savage Legionella Antigen - Final 04/09/25 16:53 Urine Catheter - Savage Streptococcus pneumoniae Antigen (M - Final 04/09/25 16:53 Mucosa - Nose SARS-CoV-2, Influenza & RSV (PCR) - Final Rhythm Strip Rhythm Strip: A-fib Rate: 135 Ectopy: None Physical Exam Narrative Seen and examined Patient was doing well last night but got tachycardic and 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 engine monitor shows irregular heartbeat with PVCs, sinus tachycardia. Cardizem 50 mg IV bolus ordered Fever at home 102.8 Fahrenheit. On 88% on 4 L of home oxygen as per EMS. The patient laying on the bed, bilateral leg swelling better. Need person assist to get out of bed Physical exam: General: Alert, Oriented x3, Cooperative. BMI 39.0 KG per square meter HEENT: Atraumatic, PERRLA, EOMI, Normocephalic. Oral: No Gingival or Mucosal Lesions/ Ulcerations Neck: Supple, No JVD, Negative Carotid Bruits Chest wall/Lungs: Air entry diminished in bilateral lung bases. Mild bilateral fine crepitations Cardiovascular: Irregular rhythm, sinus tachycardia, PVCs systolic murmur Abdomen: Bowel Sounds Present, Soft, Non Tender, Non-Distended : Burning micturition at home. Chronic urinary continence, increased frequency/urgency. No renal angle tenderness. No suprapubic tenderness. Extremities: Below-knee lower extremity edema 2+ edema, Capillary Refill Less than 3 Seconds Skin: No rashes, No breakdown Musculoskeletal: No Tenderness to Palpation of Joints or Extremities Neurological: Cranial nerves II-XII grossly intact, DTR 2+/4. No acute focal neurological deficit. Psych/Mental Status: Flat affect. Assessment & Plan Assessment/Plan (1) Septic shock: (2) Pneumonia: PLAN: Plan Patient is a 79-year-old gentleman with multiple comorbidities presented with fever patient was found to be hypotensive and assessment of septic shock secondary to pneumonia made admitted to the intensive care unit for further management 1. Septic shock most likely due to UTI, pneumonia less likely ? Imaging studies obtained on admission demonstrated bibasilar airspace opacities as well as cardiomegaly with pulmonary vascular congestion. Patient admitted to the intensive care unit, managed with IV fluid resuscitation per protocol placed on broad-spectrum antibiotic therapy cultures sent ? 04/12/2025; patient currently not on any pressors. Patient WBC count however remains elevated. Plan is for patient to be transferred to the progressive care unit ? 04/13/2025;Patient seen still has a productive cough. WBC count remains elevated however trending in the right direction. ? 04/14/2025; patient WBC count up this a.m. 04/15: Leukocytosis improving. 04/16: Blood culture negative for 5 days. Microbiology Past 72 Hours 04/09/25 16:46 Blood Culture (Wb) - Anticubital Right Blood Culture - Final No growth in 5 days. 04/09/25 16:46 Blood Culture (Wb) - Right Forearm Blood Culture - Final No growth in 5 days. 04/10/25 09:15 Sputum, Expectorated/Coughed Gram Stain - Final 04/10/25 09:15 Sputum, Expectorated/Coughed Respiratory Culture - Final Presumptive C albicans Laboratory Results 04/15/25 11:39: POC Glucose 124 H 04/15/25 16:56: POC Glucose 129 H 04/15/25 21:03: POC Glucose 120 H 04/16/25 04:27: WBC 21.2 H, RBC 3.55 L, Hgb 9.2 L, Hct 30.0 L, MCV 84.5, MCH 25.9 L, MCHC 30.7 L, RDW Std Deviation 53.4 H, RDW Coeff of Iram 17.8 H, Plt Count 212, MPV 10.1, Immature Gran % (Auto) 1.500 H, Neut % (Auto) 86.8 H, Lymph % (Auto) 3.3 L, [place] % (Auto) 6.9, Eos % (Auto) 1.4, Baso % (Auto) 0.1, Absolute Neuts (auto) 18.4 H, Absolute Lymphs (auto) 0.69 L, Nucleated RBC % 0, Sodium 140, Potassium 3.6, Chloride 105, Carbon Dioxide 27.3, Anion Gap 8, BUN 24 H, Creatinine 1.25 H, Estim Creat Clear Calc 63.58, Est GFR (MDRD) Non-Af 59 L, BUN/Creatinine Ratio 19.0, Glucose 106 H, Calcium 9.1, Vancomycin Trough 19.5 H 2. Pneumonia with suspected gram-negative organisms ? Patient managed with broad-spectrum antibiotic therapy cultures sent also placed on supplemental oxygen titrated to keep saturation greater than 90 ? 04/13/2025; sputum culture only positive for Vonnie albicans do suspect colonization ? 04/14/2025; patient appears to have a productive cough ordered repeat chest x-ray 04/15 chest x-ray initially reviewed and more suggestive of pulmonary congestion/CHF. Sputum cultures. Vonnie albicans probably contamination. 3. Acute complicated UTI ? Patient urine cultures so far positive for Enterococcus faecium, sensitivities reviewed adjusted antibiotic therapy 04/15: Urine culture growing more than 100,000 colonies of Enterococcus VCM, resistant to amoxicillin, Cipro/Levaquin, nitrofurantoin, streptomycin/tetracycline. It is MDR organism. ID is consulted and recommended continue IV vancomycin which it is sensitive and discharged on linezolid with plan of 7 to 10 days of total antibiotic. 04/16: Patient is doing well and antibiotic as per ID recommendation 4. Acute kidney injury ? Superimposed on chronic kidney disease stage IIIb. Creatinine from 04/01/2025 was 1.76 creatinine on admission was 2.26 patient started on IV fluid with subsequent monitoring of electrolytes ? 04/13/2025; patient creatinine continues to improve currently down to 1.33 04/15: BUN/creatinine 22/1.32. Similar to yesterday. No significant change. 04/16: BUN/creatinine getting better 24/125 5. Advanced non-small cell lung CA ? Patient had previously undergone VATS procedure with left upper lobe wedge resection that revealed adenocarcinoma subsequent evaluation demonstrated advanced tumor and patient is currently undergoing palliative care 6. Acute metabolic encephalopathy ? Present on admission resolved at the time of my assessment 7. Chronic hypoxic respiratory failure ? Secondary to COPD patient is on baseline home oxygen 8. Hypothyroidism ? Patient is on levothyroxine home dose continued 9. Coronary artery disease ? Status post CABG. Patient remains on guideline directed medical therapy 10. Chronic A-fib ? Rate control not optimal. Patient is on metoprolol did continue currently not on systemic anticoagulation reason unclear. Plan is to discuss with patient prior to being discharged 11. Elevated troponin ? Secondary to demand ischemia from patient sepsis and tachycardia. 2D echo ordered to assess for regional wall motion abnormalities 12. Class II obesity with BMI of 39.1 [place] per square meter ? Complicating care weight loss advised 13. Degenerative joint disease ? Pain meds as needed 14. Anemia ? Secondary to chronic disorder monitoring H&H and transfuse if patient becomes symptomatic or hemoglobin falls below 7 15. Acute on chronic congestive heart failure ? With preserved ejection fractionPatient is on Farxiga as well as furosemide. Repeat echo ordered to assess for EF. Previous echo had demonstrated markedly elevated right ventricular systolic pressures consistent with pulmonary hypertension ? Patient was also assessed to be in acute congestive heart failure ordered 80 mg of Lasix x 1. Also requested for checks x-ray. 04/15: Chest x-ray suggestive of heart failure. 2D echo shows EF 55%, moderately dilated RV with moderate to severe RV systolic dysfunction, RVSP 74 mmHg. Severe TR. 2+ MR, mild aortic stenosis, mean gradient 7 mmHg. 04/16: Lasix dose decreased to 20 mg twice daily. Transition to furosemide 40 mg p.o. twice daily from tomorrow morning 16. Peripheral neuropathy Patient is on gabapentin 17. DVT prophylaxis ? Subcu heparin Total time of the visit including total time spent in counseling or coordination of care, (more than 50% of the total time, spent in obtaining medical information from nurses and other ancillary care providers ,explaining to the patient about labs, imaging, diagnosis and management of active complex medical conditions), complicated UTI with MDR Enterococcus VCM, discussion with ID consult review of labs and imaging is 35 minutes. Living will/advanced directive/end of life care: Patient does have living will or advanced directive. 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 Palliative care consult was done. After discussion of benefits/risks procedures involved with full code, DNR CC arrest and DNR CC, the patient and his accepted for DNR CCA, no intubation Patient doesn't want artificial life support including intubation, tube feed, ventilator and/chest compression, central venous catheter, vasopressor and DC shock if needed. CODE STATUS was changed from full code to DNR CC arrest with no intubation Plan was to discharge today but got tachycardic therefore we will hold discharge today. Possible discharge tomorrow to TCU Microbiology Past 72 Hours 04/09/25 16:46 Blood Culture (Wb) - Anticubital Right Blood Culture - Final No growth in 5 days. 04/09/25 16:46 Blood Culture (Wb) - Right Forearm Blood Culture - Final No growth in 5 days. 04/10/25 09:15 Sputum, Expectorated/Coughed Gram Stain - Final 04/10/25 09:15 Sputum, Expectorated/Coughed Respiratory Culture - Final Presumptive C albicans Laboratory Results 04/14/25 16:20: POC Glucose 105 04/14/25 21:03: POC Glucose 120 H 04/15/25 04:31: WBC 22.9 H, RBC 3.43 L, Hgb 9.0 L, Hct 29.4 L, MCV 85.7, MCH 26.2 L, MCHC 30.6 L, RDW Std Deviation 54.4 H, RDW Coeff of Iram 18.0 H, Plt Count 203, MPV 10.6, Immature Gran % (Auto) 0.900, Neut % (Auto) 90.5 H, Lymph % (Auto) 2.7 L, [place] % (Auto) 5.7, Eos % (Auto) 0.1, Baso % (Auto) 0.1, Absolute Neuts (auto) 20.7 H, Absolute Lymphs (auto) 0.61 L, Nucleated RBC % 0, Differential Comment SCANNED, Reactive Lymphocytes RARE, Plt Morphology Comment LARGE, Sodium 142, Potassium 3.8, Chloride 107, Carbon Dioxide 27.7, Anion Gap 7, BUN 22 H, Creatinine 1.32 H, Estim Creat Clear Calc 60.20, Est GFR (MDRD) Non-Af 55 L, BUN/Creatinine Ratio 17.0, Glucose 102 H, Calcium 8.7 04/15/25 06:20: POC Glucose 106 04/15/25 11:39: POC Glucose 124 H Clinical Impression(s) from Imaging Studies Chest X-Ray 04/09/25 16:41 IMPRESSION: 1. Mild cardiomegaly and mild pulmonary vascular congestion. 2. Slightly decreased bibasilar airspace opacities. [facility] 04/10/25 04:20 IMPRESSION: Unremarkable median sternotomy wires. Right Port-A-Cath is in good position with its tip in the superior vena cava. Mild central pulmonary venous congestion. There is no demonstrated pleural abnormality. Enlarged cardiac silhouette. [id number] Echocardiogram 04/10/25 10:47 Interpretation Summary The left ventricular ejection fraction is 55 %. Moderately dilated right ventricle with moderate to severe RV systolic dysfunction. There is severe biatrial dilatation. Moderate (2+) mitral valve insufficiency. Severe tricuspid valve insufficiency. Estimated RVSP 74 mmHg. Moderately calcified aortic valve. Mild aortic valve stenosis. Mean peak gradient 7 mmHg. Ordering Physician: Titi Moore Referring Physician: Swati Banerjee M.D. Performed By: Elva Zuniga RACHANA Chest X-Ray 04/14/25 10:51 IMPRESSION: Cardiomegaly. Vascular congestion and CHF. Reading Location: [id number] Charges/Coding Visit Charges Inpatient E&M: 80569 Subs Hosp L2
--- NOTE | 2025-04-16 11:40 | EKG12_ITS ---
Test Reason : ARRYTH
[2025-04-16] MEDS: Metoprolol(XL)Succ 50 MG Tablet PO (11:51)
[2025-04-16] MEDS: Diltiazem 125 MG in Dextrose 5%-Water (100mL Bag) 100 ML IV (13:40)
--- NOTE | 2025-04-16 15:52 | PCM.HOSP.N ---
Hospitalist Note Patient was given a total of 25 mg Cardizem and then started on Cardizem drip as heart rate was about 150/min. A-fib RVR. Heart rate slowed down to 110 but blood pressure dropped to the 70s therefore Cardizem drip tapered off. Patient started on digoxin , 500 mg IV 1 dose and then 250 IV Q6 hourly x 2, full digitalization
[2025-04-16] MEDS: Digoxin 250 MCG/ML Ampul 500 MCG IV (16:31)
[2025-04-16] MEDS: TITRATION PARAMETER CHANGE 1 EACH IV (16:41)
[2025-04-16] MEDS: Furosemide 20 MG/2 ML VIAL IV (18:23)
[2025-04-16] MEDS: Digoxin 250 MCG/ML Ampul IV (21:11)
[2025-04-16] MEDS: APIXABAN 5 MG TABLET PO (21:13)
--- NOTE | 2025-04-16 22:32 | PCM.HOSP.N ---
Hospitalist Note Patient with IV digoxin administered and approximate 1 hour following onset of occasional missed beats with significant bradycardia, heart rate now in the 55-65, asymptomatic. Will hold the second dose of digoxin that have been ordered and planned given concern that this was the etiology. Will continue to closely monitor.
[2025-04-17] VITALS (19 sets, daily range): BP systolic 101–164; BP diastolic 46–90; PULSE 59–128; RESP 14–42; TEMP 36.5–36.9; O2SAT 94–99; BMI 38.5
[2025-04-17] MEDS: 0.9% Saline Lock 10 ML Syringe IV ×4 (04:00→18:19)
[2025-04-17 04:11] LABS: Differential Indicated SCAN CRITERIA MET; Hematocrit 35.9 % (40-54); Hemoglobin 10.8 g/dL (13.0-16.5); Immature Granulocytes Count 0.810 X10^3/uL (0.0-0.0); Mean Corp Hgb Conc 30.1 g/dL (32-36); Mean Corpuscular Volume 85.1 fL (80-94); Mean Platelet Vol. 10.3 fl (6.2-12.0); NRBC Flagged by Analyzer 0 % (0-5); POSITIVE DIFFERENTIAL YES; Platelet Count 303 K/mm3 (150-450); RBC Distribution Width CV 17.8 % (11.6-14.6); RBC Distribution Width SD 53.6 fl (35.1-43.9); Red Blood Count 4.22 M/mm3 (4.6-6.2); White Blood Count 29.8 K/mm3 (4.4-11.0)
--- NOTE | 2025-04-17 04:17 | EKG12_ITS ---
Test Reason : TACHYCARDIA
[2025-04-17 04:31] LABS: Differential Comment SCANNED
[2025-04-17 04:34] LABS: Anion Gap 13 (5-15); BUN 26 mg/dL (4-19); BUN/Creat Ratio 17.5 RATIO (10-20); Calcium,Total 9.2 mg/dL (7.6-11.0); Carbon Dioxide 26.1 mmol/L (21.0-32.0); Chloride 101 mmol/L (98-108); Estimated Creatinine Clearance 54.96 ml/min (50-250); Glucose 104 mg/dL (70-99); Potassium 4.4 mmol/L (3.3-5.1)
[2025-04-17] MEDS: Vancomycin HCl 1,500 MG in 0.9% Normal Saline (500mL Bag) 500 ML 250 MG IV (05:08)
--- NOTE | 2025-04-17 05:10 | RAD_ITS ---
PROCEDURE: RAD/Chest 1 View (Portable)
[2025-04-17] MEDS: Metoprolol(XL)Succ 50 MG Tablet PO (05:52)
[2025-04-17 06:32] LABS: Allen Test Negative; Base Excess 5 mmol/L (-2 to +2); FI02 40.0; PEEP 8; PO2 96 mmHG (75-100); RR 14; SITE L Radial; SO2 98 % (94-98)
[2025-04-17] MEDS: Budesonide Respules 0.5 MG/2 ML AMPUL.NEB. INHALATION ×2 (08:04→18:23)
[2025-04-17] MEDS: Acetylcysteine 800 MG/4 ML VIAL.NEB. INHALATION ×3 (08:37→18:23)
--- NOTE | 2025-04-17 09:08 | PCM.PN.TICU ---
Objective Data Objective Data Vital Signs: Vital Signs Last response Temperature 36.6 C 04/17/25 08:00 Temperature Source Oral 04/17/25 08:00 Pulse Rate 77 04/17/25 08:38 Pulse Strength Weak (1+) 04/17/25 08:38 Respiratory Rate 26 H 04/17/25 08:38 Respiratory Effort Normal, Non-Labored 04/17/25 08:39 Respiratory Depth Shallow 04/17/25 08:39 Respiratory Pattern Tachypnea 04/17/25 08:39 Blood Pressure 104/52 L 04/17/25 08:00 Blood Pressure Mean 69 04/17/25 08:00 Blood Pressure Source Monitor 04/17/25 08:00 Blood Pressure Position Semi-Fowlers 04/17/25 08:00 Blood Pressure Location Left Arm 04/17/25 08:00 Pulse Ox 98 04/17/25 08:38 Oxygen Delivery Method Nasal Cannula 04/17/25 08:39 Oxygen Flow Rate (L/min) 3 04/17/25 08:39 Fraction of Inspired Oxygen (FIO2) 30 04/17/25 07:30 I&O: I&O Last 24 Hours 04/16/25 04/16/25 04/17/25 11:59 23:59 10:59 Intake Total 1330 / 1919.98 469.98 / 1919.98 770 / 770 Output Total 950 / 2750 1400 / 2750 750 / 750 Balance 380 / -830.02 -930.02 / -830.02 I&O: Total Stay 04/09/25 16:21 thru 04/17/25 07:36 Intake Total 52735.23 Output Total 72817 Balance 4291.23 Current Meds Ordered / Administered: Current meds ordered / Administered Generic Name Dose Route Start Last Admin Trade Name Freq PRN Reason Stop Dose Admin Acetaminophen 1,000 mg 04/09/25 19:58 04/17/25 05:06 Acetaminophen 500 Mg Tablet PO 1,000 mg Q6H PRN PRN Administration Pain Score 1-10 Acetylcysteine 800 mg 04/17/25 08:15 04/17/25 08:37 Acetylcysteine 800 Mg/4 Ml Vial.Neb. INHALATION 800 mg Q6H.RT NATALIE Administration Albuterol/Ipratropium 3 ml 04/09/25 22:00 04/16/25 17:48 Ipratropium/Albuterol Sulfate 3 Ml Ampul.Neb INHALATION 3 ml Q6HWA.RT NATALIE Administration Apixaban 5 mg 04/16/25 12:30 04/16/25 21:13 Apixaban 5 Mg Tablet PO 5 mg Q12 NATALIE Administration Atorvastatin Calcium 40 mg 04/09/25 22:00 04/16/25 21:14 Atorvastatin Calcium 40 Mg Tablet PO 40 mg QHS NATALIE Administration Budesonide 0.5 mg 04/09/25 22:00 04/17/25 08:04 Budesonide Respules 0.5 Mg/2 Ml Ampul.Neb. INHALATION 0.5 mg Q12H.RT NATALIE Administration Calamine/Phenol 1 applic 04/15/25 10:00 04/16/25 21:11 Menthol/Lanolin/Calamine/Znox 113 Gm Tube TOPICAL 1 applic BID NATALIE Administration Protocol Digoxin 125 mcg 04/17/25 10:00 Digoxin 125 Mcg Tablet PO DAILY NATALIE Docusate Sodium 100 mg 04/09/25 22:00 04/16/25 21:13 Docusate Sodium 100 Mg Capsule PO 100 mg BID NATALIE Administration Ferrous Sulfate 325 mg 04/10/25 12:00 04/16/25 11:55 Ferrous Sulfate 325 Mg Tablet PO 325 mg DAILY@1200 NATALIE Administration Furosemide 40 mg 04/17/25 07:45 04/17/25 08:22 Furosemide 40 Mg/4 Ml Vial IV 40 mg BIDLX NATALIE Administration Protocol Glucagon 1 mg 04/09/25 19:58 Glucagon 1 Mg/Ml Syringe IM X1 PRN Hypoglycemia Protocol Glycerin/Hypromellose/Polyethylene 1 drp 04/09/25 19:58 Glycerin/Hypromellose/[id number] 15 Ml Bottle EACH EYE Q1H PRN PRN DRY EYES Guaifenesin 1 tablet 04/17/25 10:00 Guaifenesin/D-Methorphan Tab.Sr.12h PO BID NATALIE Vancomycin IV-PHARMACY TO DOSE 500 mls @ 250 mls/hr 04/09/25 19:58 1 each/ Sodium Chloride IV PRN PRN Rx to Dose Protocol Dextrose 250 mls @ 0 mls/hr 04/09/25 19:58 Dextrose 10%-Water IV .Q0M PRN HYPOGLYCEMIA Protocol As Directed Sodium Chloride 250 mls @ 15 mls/hr 04/09/25 20:25 IV .[id number] PRN Saline Flush Sodium Chloride 250 mls @ 15 mls/hr 04/09/25 20:25 IV .[id number] PRN Additional IVPB Infusion Vancomycin HCl 1,500 mg/ 530 mls @ 250 mls/hr 04/14/25 05:00 04/17/25 07:36 Sodium Chloride IV Infused Q24H NATALIE Infusion Amiodarone HCl 150 mg/ 103 mls @ 600 mls/hr 04/17/25 08:37 Dextrose IV BOLUS X1 PRN HR >130/m Insulin Human Lispro 0 unit 04/09/25 22:00 04/17/25 05:58 Insulin Lispro 100 Unit/Ml Insuln.Pen SC Not Given ACHS [facility] Protocol Levothyroxine Sodium 50 mcg 04/10/25 06:00 04/17/25 05:06 Levothyroxine 50 Mcg Tablet PO 50 mcg DAILY@0600 NATALIE Administration Losartan Potassium 50 mg 04/17/25 12:00 Losartan Potassium 50 Mg Tablet PO LUNCH [facility] Protocol Metoprolol Succinate 50 mg 04/17/25 10:00 04/17/25 05:52 Metoprolol(Xl)Succ 50 Mg Tablet PO 50 mg DAILY NATALIE Administration Protocol Ondansetron HCl 4 mg 04/09/25 19:58 Ondansetron 4 Mg/2 Ml Vial IV Q8H PRN PRN NAUSEA/VOMITING Oxycodone HCl 5 mg 04/09/25 19:58 04/17/25 05:06 Oxycodone 5 Mg Tablet PO 5 mg Q6H PRN PRN Administration pain 1-10 Pantoprazole Sodium 40 mg 04/09/25 22:00 04/16/25 21:13 Pantoprazole Sodium 40 Mg Tablet PO 40 mg BID NATALIE Administration Pramipexole Dihydrochloride 0.5 mg 04/09/25 22:00 04/17/25 05:06 Pramipexole Di-Hcl 0.5 Mg Tablet PO 0.5 mg TID NATALIE Administration Sodium Chloride 2 spray 04/09/25 19:58 Sodium Chloride 0.65% 1 Shiloh Shiloh.Btl NASAL Q2H PRN PRN dry nasal passages Sodium Chloride 10 - 40 ml 04/09/25 20:25 04/17/25 08:22 0.9% Saline Lock 10 Ml Syringe IV 20 ml UD PRN Administration SALINE FLUSH Sucralfate 1 gm 04/10/25 07:00 04/17/25 05:51 Sucralfate 1 Gm Tablet PO 1 gm TID@0700,1100,1600 [facility] Administration Trazodone HCl 100 mg 04/15/25 22:00 04/16/25 21:12 Trazodone 100 Mg Tablet PO 100 mg QHS [facility] Administration Vancomycin Protocol 1 lab 04/18/25 03:30 Vancomycin Trough/Random Due MC 04/18/25 05:30 DAILY [facility] Lab / Micro Data 04/17/25 03:54 04/17/25 03:54 Labs: Laboratory Results - last 24 hr 04/16/25 06:30: POC Glucose 100 04/16/25 11:53: POC Glucose 101 04/16/25 16:28: POC Glucose 102 04/16/25 21:10: POC Glucose 90 04/17/25 03:54: WBC 29.8 H, RBC 4.22 L, Hgb 10.8 L, Hct 35.9 L, MCV 85.1, MCH 25.6 L, MCHC 30.1 L, RDW Std Deviation 53.6 H, RDW Coeff of Iram 17.8 H, Plt Count 303, MPV 10.3, Immature Gran % (Auto) 2.700 H, Neut % (Auto) 89.9 H, Lymph % (Auto) 2.3 L, [place] % (Auto) 3.8, Eos % (Auto) 1.0, Baso % (Auto) 0.3, Absolute Neuts (auto) 26.8 H, Absolute Lymphs (auto) 0.68 L, Nucleated RBC % 0, Differential Comment SCANNED, Sodium 140, Potassium 4.4, Chloride 101, Carbon Dioxide 26.1, Anion Gap 13, BUN 26 H, Creatinine 1.46 H, Estim Creat Clear Calc 54.96, Est GFR (MDRD) Non-Af 49 L, BUN/Creatinine Ratio 17.5, Glucose 104 H, Calcium 9.2 04/17/25 04:00: POC Glucose 85 ABG Data ABG results: ABG 04/17/25 07:27 Specimen Type ART Sample Site L Radial pH 7.44 Bicarbonate Actual 29.1 H Total CO2 31 Base Excess 5 H O2 Saturation 98 O2 % 40.0 ABG pCO2 42.7 ABG pO2 96 John Test Negative Respiration Rate 14 O2 Delivery Device BiPAP Vent Mode Not entered POC PEEP 8 Rhythm Strip Rhythm Strip: A-fib Rate: 135 Ectopy: None Imaging Radiology Impression Chest X-Ray 04/17/25 05:10 IMPRESSION: Cardiomegaly with vascular congestion, CHF. No sizable pleural effusion. Reading Location: [id number] Assessment and Plan . Assessment and plan: Critical Care Time: The entirety of this encounter was done via Telemedicine Subjective Subjective Pt seen and examined. P/CC was asked to re-eval given patient Tx to the PCU a few days ago after developing AF RVR. He has had mild tachypnea as well but is currently on his home 3L O2. He was started on dilt gtt and received digoxin overnight but developed bradycardia and had some skipped beats prompting cardiology to stop these meds. He was placed on NIV 14/8 30% overnight to see if it would help his tachycpnea. Pt denies any sig SOB. He has a mild nonproductive cough. Good UOP with ~1500cc UOP yesterday. PE: GEN morbidly obese acute on chronically ill VS as above HEENT PERRL/EOMI; MMM; neck supple, hard to asses JVD COR irreg CHEST diminished with bibasilar crackles ABD obese, soft EXT warm; 3+ BLE pitting edema SKIN w/d PRISCILA grossly NF - hypoactive A/P: #Septic shock- resolved #Enterococcal UTI #PH with cor pulmonale #COPD #Chronic AF #Renal insufficiency w/ oliguria #Obesity #Advanced NSCLC #Delirium / encephalopathy #Adult failure to thrive #Chronic debility -Cont supplemental O2, titrate to keep sats ~88-90%; back down to home 3L O2 and subjectively stable; cont NIV PRN & qHS -Cont IV vanc per ID; F/U Cx --> worsening leukocytosis but afebrile; may need to rebroaden -Cont rate control agents, Eliquis; pending cardiology consult although he is a poor candidate for interventions -Cont diuresis; strict I/Os -PT/OT -On-going discussions with palliative/hospice care PO diet Eliquis, PPI Poor overall prognosis; patient declines hospice at this time DNR/DNI Critical Care Time: 50 minutes The entirety of this encounter was done via Telemedicine
[2025-04-17] MEDS: APIXABAN 5 MG TABLET PO ×2 (09:30→21:19)
[2025-04-17] MEDS: guaiFENesin/D-Methorphan TAB.SR.12H 1 TABLET PO ×2 (09:31→21:19)
--- NOTE | 2025-04-17 13:02 | PN.HOSP_ITS ---
Reason for Visit
--- NOTE | 2025-04-17 13:02 | PCM.PN.HOSP ---
Reason for Visit Chief Complaint: Fever Objective Data Objective Data Vital Signs: Vital Signs Temp Pulse Resp BP Pulse Ox O2 Del Method O2 Flow Rate 97.7 F L 65 29 H 108/56 L 97 Nasal Cannula 3 04/17/25 12:30 04/17/25 12:30 04/17/25 12:30 04/17/25 12:30 04/17/25 12:30 04/17/25 12:30 04/17/25 12:30 FiO2 30 04/17/25 07:30 Oxygen Flow Rate (L/min) 3 Oxygen Delivery Method Nasal Cannula Weight: 268 lb 4.841 oz Body Mass Index (BMI) 38.5 Intake & Output: Intake and Output for Last 24 Hours 04/15/25 04/16/25 04/17/25 23:59 23:59 22:59 Intake Total 1430 / 1830 1799.98 / 1919.98 770 / 770 Output Total 2251 / 2951 3050 / 3450 750 / 750 Balance -821 / -1121 -1250.02 / -1530.02 Lab / Micro Data 04/17/25 03:54 04/17/25 03:54 Labs: Laboratory Results - last 24 hr 04/16/25 06:30: POC Glucose 100 04/16/25 16:28: POC Glucose 102 04/16/25 21:10: POC Glucose 90 04/17/25 03:54: WBC 29.8 H, RBC 4.22 L, Hgb 10.8 L, Hct 35.9 L, MCV 85.1, MCH 25.6 L, MCHC 30.1 L, RDW Std Deviation 53.6 H, RDW Coeff of Iram 17.8 H, Plt Count 303, MPV 10.3, Immature Gran % (Auto) 2.700 H, Neut % (Auto) 89.9 H, Lymph % (Auto) 2.3 L, [place] % (Auto) 3.8, Eos % (Auto) 1.0, Baso % (Auto) 0.3, Absolute Neuts (auto) 26.8 H, Absolute Lymphs (auto) 0.68 L, Nucleated RBC % 0, Differential Comment SCANNED, Sodium 140, Potassium 4.4, Chloride 101, Carbon Dioxide 26.1, Anion Gap 13, BUN 26 H, Creatinine 1.46 H, Estim Creat Clear Calc 54.96, Est GFR (MDRD) Non-Af 49 L, BUN/Creatinine Ratio 17.5, Glucose 104 H, Calcium 9.2 04/17/25 04:00: POC Glucose 85 04/17/25 11:31: POC Glucose 95 Micro: Microbiology 04/09/25 16:46 Blood Culture (Wb) - Anticubital Right Blood Culture - Final No growth in 5 days. 04/09/25 16:46 Blood Culture (Wb) - Right Forearm Blood Culture - Final No growth in 5 days. 04/10/25 09:15 Sputum, Expectorated/Coughed Gram Stain - Final 04/10/25 09:15 Sputum, Expectorated/Coughed Respiratory Culture - Final Presumptive C albicans 04/09/25 16:53 Urine, Catheterized Urine Culture - Final Enterococcus faecium 04/09/25 16:53 Urine Catheter - Savage Legionella Antigen - Final 04/09/25 16:53 Urine Catheter - Savage Streptococcus pneumoniae Antigen (M - Final 04/09/25 16:53 Mucosa - Nose SARS-CoV-2, Influenza & RSV (PCR) - Final ABG Data ABG results: ABG 04/17/25 07:27 Specimen Type ART Sample Site L Radial pH 7.44 Bicarbonate Actual 29.1 H Total CO2 31 Base Excess 5 H O2 Saturation 98 O2 % 40.0 ABG pCO2 42.7 ABG pO2 96 John Test Negative Respiration Rate 14 O2 Delivery Device BiPAP Vent Mode Not entered POC PEEP 8 Radiography Diagnostic Testing: Radiology Impression Chest X-Ray 04/17/25 05:10 IMPRESSION: Cardiomegaly with vascular congestion, CHF. No sizable pleural effusion. Reading Location: [id number] Rhythm Strip Rhythm Strip: A-fib Rate: 135 Ectopy: None Physical Exam Narrative Seen and examined Overnight events noted. Yesterday afternoon/evening patient got hypotensive on Cardizem drip therefore was discontinued and loading dose of digoxin ordered. After evening 0.25 mg of IV digoxin dose, patient had occasional missed heartbeat with significant bradycardia heart rate 55-65 but asymptomatic. The second dose of 0.25 mg of digoxin was discontinued In the morning today, patient is short of breath therefore on BiPAP since last night but after taking off BiPAP he feels better with less shortness of breath. Tachypnea also got better on high flow oxygen. Weak cough reflex. Patient was admitted with fever at home 102.8 Fahrenheit. The patient laying on the bed, bilateral leg swelling better. Need person assist to get out of bed Physical exam: General: Alert, Oriented x3, Cooperative. BMI 39.0 KG per square meter HEENT: Atraumatic, PERRLA, EOMI, Normocephalic. Oral: No Gingival or Mucosal Lesions/ Ulcerations Neck: Supple, No JVD, Negative Carotid Bruits Chest wall/Lungs: Air entry diminished in bilateral lung bases. Mild bilateral coarse crepitations/rhonchi Cardiovascular: Irregular rhythm, A-fib, heart rate in 70s. PVCs systolic murmur Abdomen: Bowel Sounds Present, Soft, Non Tender, Non-Distended : Burning micturition at home. Chronic urinary continence, increased frequency/urgency. No renal angle tenderness. No suprapubic tenderness. Extremities: Below-knee lower extremity edema 2+ edema, Capillary Refill Less than 3 Seconds Skin: No rashes, No breakdown Musculoskeletal: No Tenderness to Palpation of Joints or Extremities Neurological: Cranial nerves II-XII grossly intact, DTR 2+/4. No acute focal neurological deficit. Psych/Mental Status: Flat affect. Assessment & Plan Assessment/Plan (1) Septic shock: (2) Pneumonia: PLAN: Plan Patient is a 79-year-old gentleman with multiple comorbidities presented with fever patient was found to be hypotensive and assessment of septic shock secondary to pneumonia made admitted to the intensive care unit for further management 1. Septic shock most likely due to UTI, pneumonia less likely ? Imaging studies obtained on admission demonstrated bibasilar airspace opacities as well as cardiomegaly with pulmonary vascular congestion. Patient admitted to the intensive care unit, managed with IV fluid resuscitation per protocol placed on broad-spectrum antibiotic therapy cultures sent ? 04/12/2025; patient currently not on any pressors. Patient WBC count however remains elevated. Plan is for patient to be transferred to the progressive care unit ? 04/13/2025;Patient seen still has a productive cough. WBC count remains elevated however trending in the right direction. ? 04/14/2025; patient WBC count up this a.m. 04/15: Leukocytosis improving. 04/16: Blood culture negative for 5 days. 04/17: Patient on 8th day of antibiotic, needs 2 more day, end date 04/19/2025. 2. Pneumonia with suspected gram-negative organisms ? Patient managed with broad-spectrum antibiotic therapy cultures sent also placed on supplemental oxygen titrated to keep saturation greater than 90 ? 04/13/2025; sputum culture only positive for Vonnie albicans do suspect colonization ? 04/14/2025; patient appears to have a productive cough ordered repeat chest x-ray 04/15 chest x-ray initially reviewed and more suggestive of pulmonary congestion/CHF. Sputum cultures. Vonnie albicans probably contamination. 3. Acute complicated UTI ? Patient urine cultures so far positive for Enterococcus faecium, sensitivities reviewed adjusted antibiotic therapy 04/15: Urine culture growing more than 100,000 colonies of Enterococcus VCM, resistant to amoxicillin, Cipro/Levaquin, nitrofurantoin, streptomycin/tetracycline. It is MDR organism. ID is consulted and recommended continue IV vancomycin which it is sensitive and discharged on linezolid with plan of 7 to 10 days of total antibiotic. 04/16: Patient is doing well and antibiotic as per ID recommendation 4. Acute kidney injury ? Superimposed on chronic kidney disease stage IIIb. Creatinine from 04/01/2025 was 1.76 creatinine on admission was 2.26 patient started on IV fluid with subsequent monitoring of electrolytes ? 04/13/2025; patient creatinine continues to improve currently down to 1.33 04/15: BUN/creatinine 22/1.32. Similar to yesterday. No significant change. 04/16: BUN/creatinine getting better 24/1.25 04/17: BUN/creatinine 26/1.46 went up because of diuretic 5. Advanced non-small cell lung CA ? Patient had previously undergone VATS procedure with left upper lobe wedge resection that revealed adenocarcinoma subsequent evaluation demonstrated advanced tumor and patient is currently undergoing palliative care 6. Acute metabolic encephalopathy ? Present on admission resolved at the time of my assessment 7. Chronic hypoxic respiratory failure ? Secondary to COPD patient is on baseline home oxygen 04/17: Acute on chronic hypoxic respiratory failure: Patient was more short of breath yesterday and put on BiPAP. ABG 7.4 /96 on BiPAP PEEP 840% FiO2. High Aa gradient. Patient was tachypneic and short of breath last night on BiPAP till morning. Was taken off on 2 L of oxygen, shortness of breath and tachypnea better. Pulmonary consult requested 8. Hypothyroidism ? Patient is on levothyroxine home dose continued 9. Coronary artery disease ? Status post CABG. Patient remains on guideline directed medical therapy 10. Chronic A-fib ? Rate control not optimal. Patient is on metoprolol did continue currently not on systemic anticoagulation reason unclear. Plan is to discuss with patient prior to being discharged 04/17: Patient went on A-fib RVR on 04/16. Patient was started on Cardizem drip after 25 mg IV bolus and metoprolol succinate dose increased to 50 mg daily. He was hypotensive on Cardizem drip yesterday therefore changed to digoxin to increase positive inotropic and negative chronotropic effect. Drupal Web Developer consult requested. Patient has predominantly right heart failure with severe RV systolic dysfunction with severe TR. Diuretics for tomorrow IV twice daily, losartan decreased to 50 mg daily, metoprolol 50 mg daily and advised digoxin 250 mcg daily and follow-up digoxin level after 1 week. Drupal Web Developer consult requested. 11. Elevated troponin ? Secondary to demand ischemia from patient sepsis and tachycardia. 2D echo ordered to assess for regional wall motion abnormalities 12. Class II obesity with BMI of 39.1 [place] per square meter ? Complicating care weight loss advised 13. Degenerative joint disease ? Pain meds as needed 14. Anemia ? Secondary to chronic disorder monitoring H&H and transfuse if patient becomes symptomatic or hemoglobin falls below 7 15. Acute on chronic congestive heart failure ? With preserved ejection fractionPatient is on Farxiga as well as furosemide. Repeat echo ordered to assess for EF. Previous echo had demonstrated markedly elevated right ventricular systolic pressures consistent with pulmonary hypertension ? Patient was also assessed to be in acute congestive heart failure ordered 80 mg of Lasix x 1. Also requested for checks x-ray. 04/15: Chest x-ray suggestive of heart failure. 2D echo shows EF 55%, moderately dilated RV with moderate to severe RV systolic dysfunction, RVSP 74 mmHg. Severe TR. 2+ MR, mild aortic stenosis, mean gradient 7 mmHg. 04/16: Lasix dose decreased to 20 mg twice daily. Transition to furosemide 40 mg p.o. twice daily from tomorrow morning 16. Peripheral neuropathy Patient is on gabapentin 17. DVT prophylaxis ? Subcu heparin Total time of the visit including total time spent in counseling or coordination of care, (more than 50% of the total time, spent in obtaining medical information from nurses and other ancillary care providers ,explaining to the patient about labs, imaging, diagnosis and management of active complex medical conditions), complicated UTI with MDR Enterococcus VCM, discussion with ID consult review of labs and imaging is 35 minutes. Living will/advanced directive/end of life care: Patient does have living will or advanced directive. His is power of assistant district attorney for health. Palliative care consult was done. After discussion of benefits/risks procedures involved with full code, DNR CC arrest and DNR CC, the patient and his accepted for DNR CCA, no intubation Patient doesn't want artificial life support including intubation, tube feed, ventilator and/chest compression, central venous catheter, vasopressor and DC shock if needed. CODE STATUS was changed from full code to DNR CC arrest with no intubation Total time of the visit including total time spent in counseling or coordination of care, (more than 50% of the total time, spent in obtaining medical information from nurses and other ancillary care providers ,explaining to the patient about labs, imaging, diagnosis and management of active complex medical conditions), and discussion with trucker and irrigationist designer, review of labs and imaging is 45 minutes. Plan was to discharge today but got tachycardic therefore we will hold discharge today. Possible discharge tomorrow to TCU Microbiology Past 72 Hours 04/09/25 16:46 Blood Culture (Wb) - Anticubital Right Blood Culture - Final No growth in 5 days. 04/09/25 16:46 Blood Culture (Wb) - Right Forearm Blood Culture - Final No growth in 5 days. Laboratory Results 04/16/25 06:30: POC Glucose 100 04/16/25 16:28: POC Glucose 102 04/16/25 21:10: POC Glucose 90 04/17/25 03:54: WBC 29.8 H, RBC 4.22 L, Hgb 10.8 L, Hct 35.9 L, MCV 85.1, MCH 25.6 L, MCHC 30.1 L, RDW Std Deviation 53.6 H, RDW Coeff of Iram 17.8 H, Plt Count 303, MPV 10.3, Immature Gran % (Auto) 2.700 H, Neut % (Auto) 89.9 H, Lymph % (Auto) 2.3 L, [place] % (Auto) 3.8, Eos % (Auto) 1.0, Baso % (Auto) 0.3, Absolute Neuts (auto) 26.8 H, Absolute Lymphs (auto) 0.68 L, Nucleated RBC % 0, Differential Comment SCANNED, Sodium 140, Potassium 4.4, Chloride 101, Carbon Dioxide 26.1, Anion Gap 13, BUN 26 H, Creatinine 1.46 H, Estim Creat Clear Calc 54.96, Est GFR (MDRD) Non-Af 49 L, BUN/Creatinine Ratio 17.5, Glucose 104 H, Calcium 9.2 04/17/25 04:00: POC Glucose 85 04/17/25 07:27: Specimen Type ART, Sample Site L Radial, pH 7.44, Bicarbonate Actual 29.1 H, Total CO2 31, Base Excess 5 H, O2 Saturation 98, O2 % 40.0, ABG pCO2 42.7, ABG pO2 96, John Test Negative, Respiration Rate 14, O2 Delivery Device BiPAP, Vent Mode Not entered, POC PEEP 8 04/17/25 11:31: POC Glucose 95 Clinical Impression(s) from Imaging Studies Chest X-Ray 04/09/25 16:41 IMPRESSION: 1. Mild cardiomegaly and mild pulmonary vascular congestion. 2. Slightly decreased bibasilar airspace opacities. Reading Location: [facility] Chest X-Ray 04/10/25 04:20 IMPRESSION: Unremarkable median sternotomy wires. Right Port-A-Cath is in good position with its tip in the superior vena cava. Mild central pulmonary venous congestion. There is no demonstrated pleural abnormality. Enlarged cardiac silhouette. Reading Location: [id number] Echocardiogram 04/10/25 10:47 Interpretation Summary The left ventricular ejection fraction is 55 %. Moderately dilated right ventricle with moderate to severe RV systolic dysfunction. There is severe biatrial dilatation. Moderate (2+) mitral valve insufficiency. Severe tricuspid valve insufficiency. Estimated RVSP 74 mmHg. Moderately calcified aortic valve. Mild aortic valve stenosis. Mean peak gradient 7 mmHg. Ordering Physician: Titi Moore Referring Physician: Swati Banerjee M.D. Performed By: Elva Zuniga RDCS Chest X-Ray 04/14/25 10:51 IMPRESSION: Cardiomegaly. Vascular congestion and CHF. Reading Location: [id number] Charges/Coding Visit Charges Inpatient E&M: 19462 Subs Hosp L3
[2025-04-17] MEDS: Ipratropium 0.5 MG/2.5 ML SOLUTION INHALATION ×4 (13:08→22:39)
[2025-04-18] VITALS (17 sets, daily range): BP systolic 105–131; BP diastolic 47–55; PULSE 64–110; RESP 14–36; TEMP 36.2–36.8; O2SAT 93–99; BMI 37.9
[2025-04-18] MEDS: Ipratropium 0.5 MG/2.5 ML SOLUTION INHALATION ×4 (03:16→19:05)
[2025-04-18 04:52] LABS: Hematocrit 28.0 % (40-54); Hemoglobin 8.8 g/dL (13.0-16.5); Immature Granulocytes Count 0.330 X10^3/uL (0.0-0.0); Mean Corp Hgb Conc 31.4 g/dL (32-36); Mean Corpuscular Volume 83.8 fL (80-94); Mean Platelet Vol. 10.0 fl (6.2-12.0); NRBC Flagged by Analyzer 0 % (0-5); POSITIVE DIFFERENTIAL YES; Platelet Count 204 K/mm3 (150-450); RBC Distribution Width CV 17.6 % (11.6-14.6); RBC Distribution Width SD 52.9 fl (35.1-43.9); Red Blood Count 3.34 M/mm3 (4.6-6.2); White Blood Count 24.1 K/mm3 (4.4-11.0)
[2025-04-18 04:55] LABS: Differential Indicated SCAN CRITERIA MET
[2025-04-18 05:19] LABS: Magnesium 1.9 mg/dL (1.5-2.2)
[2025-04-18 05:20] LABS: Anion Gap 10 (5-15); BUN 31 mg/dL (4-19); BUN/Creat Ratio 19.8 RATIO (10-20); Calcium,Total 8.3 mg/dL (7.6-11.0); Carbon Dioxide 25.4 mmol/L (21.0-32.0); Chloride 100 mmol/L (98-108); Estimated Creatinine Clearance 49.22 ml/min (50-250); Glucose 90 mg/dL (70-99); Potassium 3.6 mmol/L (3.3-5.1); Vancomycin, Trough Level 25.3 ug/mL (5.0-15.0)
[2025-04-18 05:21] LABS: Acanthocytes RARE; Anisocytosis 1+; Differential Comment SCANNED; Schistocytes RARE
--- NOTE | 2025-04-18 05:36 | PCM.RX.CS ---
Consult Antibiotic Management Pharmacy has been consulted to manage selected antibiotic: Vancomycin Type of Intervention Type of Consult: Follow-up Labs Labs: Sodium 136 mmol/L (133-145) 04/18/25 04:36 Potassium 3.6 mmol/L (3.3-5.1) 04/18/25 04:36 Chloride 100 mmol/L (98-108) 04/18/25 04:36 Carbon Dioxide 25.4 mmol/L (21.0-32.0) 04/18/25 04:36 Anion Gap 10 (5-15) 04/18/25 04:36 BUN 31 mg/dL (4-19) H 04/18/25 04:36 Creatinine 1.58 mg/dL (0.70-1.20) H 04/18/25 04:36 Est GFR (MDRD) Non-Af 44 (>60) L 04/18/25 04:36 BUN/Creatinine Ratio 19.8 RATIO (10-20) 04/18/25 04:36 Glucose 90 mg/dL (70-99) 04/18/25 04:36 Vancomycin Trough 25.3 ug/mL (5.0-15.0) H 04/18/25 04:36 Random Vancomycin 17.0 ug/mL (0.0-15.0) H 04/14/25 03:55 Microbiology Microbiology: Microbiology 04/09/25 16:46 Blood Culture (Wb) - Anticubital Right Blood Culture - Final No growth in 5 days. 04/09/25 16:46 Blood Culture (Wb) - Right Forearm Blood Culture - Final No growth in 5 days. 04/10/25 09:15 Sputum, Expectorated/Coughed Gram Stain - Final 04/10/25 09:15 Sputum, Expectorated/Coughed Respiratory Culture - Final Presumptive C albicans 04/09/25 16:53 Urine, Catheterized Urine Culture - Final Enterococcus faecium 04/09/25 16:53 Urine Catheter - Savage Legionella Antigen - Final 04/09/25 16:53 Urine Catheter - Savage Streptococcus pneumoniae Antigen (M - Final 04/09/25 16:53 Mucosa - Nose SARS-CoV-2, Influenza & RSV (PCR) - Final Goal Trough Goal Trough: 15-20 mcg/mL Pharmacy Plan for Drug Dosing Pharmacy Plan for Drug Dosing: Pharmacy Service will continue to monitor and adjust dosing as required. TROUGH 25.3 @ 23.5 HOURS. HOLD DOSE AND DRAW RANDOM LEVEL IN 12 HOURS Follow-Up Labs Follow-Up Labs: Trough: Vancomycin Date/Time Labs Ordered Labs to be done on [date and time ordered]: 04/18 @ 9334
[2025-04-18] MEDS: Budesonide Respules 0.5 MG/2 ML AMPUL.NEB. INHALATION ×2 (07:31→19:05)
[2025-04-18] MEDS: Acetylcysteine 800 MG/4 ML VIAL.NEB. INHALATION ×3 (07:31→19:05)
--- NOTE | 2025-04-18 08:46 | PN.HOSP_ITS ---
Reason for Visit
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
--- NOTE | 2025-04-18 09:24 | PCM.CONS.C ---
Assessment & Plan Assessment/Plan (1) Atrial fibrillation with RVR: PLAN: Patient's heart rate is well-controlled at 70 bpm. And his chart it reports that he has persistent longstanding atrial fibrillation however since admission it was reported that it appeared that he had reverted into sinus rhythm transiently when he was placed on IV amiodarone for rate control. The patient is now in atrial fibrillation with a heart rate of 70 bpm and atrial fibrillation. He denies any symptoms at this point in time and he is requiring long-term Eliquis. The plan would be to rate control on his current medical therapy and he could be transferred to his next site of care as to be determined by the hospitalist service. The patient is palliative care given his metastatic lung cancer and multiple other comorbid issues. (2) History of coronary artery stent placement: PLAN: Patient has known coronary disease status post remote stenting in 2006. (3) H/O coronary artery bypass surgery: PLAN: Patient had bypass graft surgery in 2005. (4) Chronic combined systolic and diastolic CHF (congestive heart failure): PLAN: Echocardiogram April 11, 2025 showed LV ejection fraction of 55% however his RV was dilated and had significant RV dysfunction. He also had a right ventricular systolic pressure estimated at 74 mmHg. Both atria are severely dilated and he had 1?2+ mitral regurgitation. The patient has been diuresed and she continued to be on diuretic therapy. He remains on Farxiga metoprolol succinate 25 mg daily losartan 50 mg twice daily furosemide 40 mg daily. These are his home meds. PLAN: Plan 1. Recommend continuing his current oral medical therapy. Would not recommend utilizing amiodarone unless the rate cannot be controlled with a combination of his Lanoxin and metoprolol. 2. Will continue Eliquis for oral anticoagulation and his current rate control medications for heart rate control with his atrial fibrillation. 3. Continue the patient's guideline directed medical therapy 4. Continue with his palliative care. 5. Cardiology will sign off if further assistance is needed please call. HPI Consult Data Date of Consult: 04/18/25 HPI Narrative Reason for Consultation: Atrial fibrillation in the face of pneumonia related to respiratory failure HPI Narrative: JV DURHAM, is a 79 M who presents with septic shock and pneumonia with respiratory failure. The patient has metastatic non-small cell lung cancer he has palliative care. The patient went into atrial fibrillation with rapid ventricular response when he was admitted he was transiently treated with amiodarone and reverted into sinus rhythm he has had episodes of paroxysmal atrial fibrillation since conversion. Currently the patient is now in atrial fed with a controlled ventricular response of 70 bpm. The patient is on Eliquis his hemoglobin is 8.8. His heart rate came down once he was diuresed. The patient essentially is in bed most of the time. He tells me he does not get out of bed except rarely. The patient has multiple medical problems including dementia and parkinsonism. He does report that he is comfortable he denies any pain at this point in time. He seems to be resting comfortably in the recumbent position in bed. He does use CPAP at night. 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 Regional lymph node metastasis present Metastasis to liver Pain Cancer of lower lobe of right lung Nodule of parotid gland History of home oxygen therapy Cardiology follow-up encounter Gastric ulcer History of lung cancer Adrenal mass History of Parkinson's disease History of atrial fibrillation Hx of cancer of lung Pulmonary hypertension Emphysema, unspecified History of echocardiogram History of stress test Hypertension History of atrial fibrillation Hx of fracture of ankle COVID Chronic combined systolic and diastolic CHF (congestive heart failure) Severe pulmonary arterial systolic hypertension Wears glasses Uses wheelchair Walker as ambulation aid Ambulates with cane Arthritis Anemia Migraine headache Injury of head and neck Parkinson's disease Gastric reflux Former smoker BiPAP (biphasic positive airway pressure) dependence COPD (chronic obstructive pulmonary disease) On home oxygen therapy History of pain when walking History of edema Amputated great toe of left foot Amputation of one or more toes Chronic ulcer of left foot with fat layer exposed Hammer toe of left foot Toe osteomyelitis Right ventricular dilation, secondary Right ventricular systolic dysfunction Respiratory failure with hypoxia Diverticular disease Polyp of colon, adenomatous Chronic gastritis Multiple premature ventricular complexes Longstanding persistent atrial fibrillation Hyperlipidemia Acute kidney injury NSTEMI (non-ST elevated myocardial infarction) (12/02/19) Sepsis Gastric AVM Adenocarcinoma of lung, stage 1 GI bleed Iron deficiency anemia due to chronic blood loss Atherosclerosis of coronary artery of [place] heart without angina pectoris Cancer of upper lobe of left lung 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 Benign essential hypertension HEBER (obstructive sleep apnea) Dementia Parkinsons Essential tremor GERD (gastroesophageal reflux disease) Alcohol dependence Home Medications ?Medication ?Instructions ?Recorded ?Last Taken ?Type ferrous sulfate 325 mg (65 mg 65 mg PO DAILY supplement 02/01/19 04/09/25 History iron) tablet cholecalciferol (vitamin D3) 125 5,000 unit PO DAILY cholesterol 03/30/19 04/09/25 History mcg (5,000 unit) capsule peg [id number] 1 1 drp EACH EYE Q1H PRN DRY EYES #0 04/26/24 04/25/24 10:10 Rx %-0.2 %-0.2 % eye drops mL (Artificial Tears ([id number])) sodium chloride 0.65 % nasal spray 2 spray intranasal Q2H PRN dry 04/26/24 04/26/24 09:10 Rx aerosol (Nasal Moisturizing) nasal passages #50 mL acetaminophen 500 mg tablet 1,000 mg (2 x 500 mg) PO Q6H PRN 05/24/24 Unknown Rx PRN Pain Score 1-10 #0 tabs cyanocobalamin (vitamin B-12) 1,000 mcg IM QMONTH SUPPLEMENT 07/15/24 07/26/24 History 1,000 mcg/mL injection solution docusate sodium 100 mg capsule 100 mg PO BID constipation 07/15/24 04/09/25 History gabapentin 600 mg tablet 1,200 mg PO QHS pain 07/15/24 04/08/25 History metoprolol succinate 25 mg 25 mg PO QDAY htn 07/15/24 04/09/25 History tablet,extended release 24 hr oxygen-air delivery systems 07/15/24 Unknown History fluticasone fur. 100 mcg-umeclid 1 inh inhalation QDAY Asthma #60 ea 09/09/24 Unknown Rx 62.5 mcg-vilant 25 mcg inhalat.powder (Trelegy Ellipta) losartan 100 mg tablet 50 mg (1/2 x 100 mg) PO BID heart 10/25/24 04/09/25 Rx #90 tabs dapagliflozin propanediol 10 mg 10 mg PO QDAY DM 12/09/24 04/09/25 History tablet (Farxiga) furosemide 40 mg tablet (Lasix) 40 mg PO QDAY edema #90 tabs 01/25/25 04/09/25 Rx oxycodone 5 mg tablet 5 mg PO Q6H PRN pain 03/29/25 Unknown History cranberry fruit concentrate 250 mg 250 mg PO DAILY 04/09/25 Unknown History chewable tablet (Azo Cranberry) levothyroxine 50 mcg tablet 50 mcg PO DAILY thyroid 04/09/25 04/09/25 History omeprazole 40 mg capsule,delayed 40 mg PO BID GERD 04/09/25 04/09/25 History release pramipexole 0.5 mg tablet 0.5 mg PO TID 04/09/25 04/09/25 History rosuvastatin 20 mg tablet (Crestor) 20 mg PO DAILY cholesterol 04/09/25 04/08/25 History sucralfate 1 gram tablet 1 g PO TID 04/09/25 04/09/25 History sulfamethoxazole 800 1 tab PO BID 04/09/25 04/09/25 History mg-trimethoprim 160 mg tablet trazodone 50 mg tablet 50 mg PO QHS sleep 04/09/25 04/08/25 History OXYGEN - Supplemental ([facility] hypoxia 04/16/25 Unknown History INFORMATIONAL USE ONLY) Allergy/AdvReac Type Severity Reaction Status Date / Time No Known Allergies Allergy Verified 03/30/25 16:00 Family History Sister Alcoholism Cancer Mother Arthritis Father Arthritis Brother Cancer Surgical History History of transurethral resection of prostate Hx of toe surgery SURGICAL REMOVAL LEFT GREAT TOE History of right and left heart catheterization (12/04/16) History of colonoscopy (03/22/20) History of esophagogastroduodenoscopy (03/22/20) History of left heart catheterization (2016) History of coronary artery stent placement (12/23/06) Status post insertion of iliac artery stent (08/04/12) Status post surgical removal of neoplasm of skin History of tonsillectomy and adenoidectomy History of hammer toe correction History of open reduction and internal fixation (ORIF) procedure History of open reduction and internal fixation (ORIF) procedure History of lobectomy of lung History of cardioversion (12/2016) H/O coronary artery bypass surgery (02/14/06) Social History household members: spouse Smoking Status: Former smoker quit date: 11/14/93 how long ago did patient quit smokin years ago second hand exposure: No alcohol intake: current alcohol intake frequency: holidays/special occasions only Alcohol type: wine substance use type: does not use caffeine: Yes Type: coffee Number of servings: 1 what type of physical activity do you participate in: none frequency: does not exercise seatbelt use: always ROS Constitutional Constitutional: Reports as per HPI Eyes Eyes: Reports systems reviewed and no addt'l complaints, except as documented ENT HEENT: Reports systems reviewed and no addt'l complaints, except as documented Cardiovascular Cardiovascular: Reports as per HPI Respiratory/Chest Respiratory/Chest: Reports as per HPI Gastrointestinal Gastrointestinal: Reports systems reviewed and no addt'l complaints, except as documented Genitourinary Genitourinary: Reports systems reviewed and no addt'l complaints, except as documented Musculoskeletal Musculoskeletal: Reports systems reviewed and no addt'l complaints, except as documented Integumentary Integumentary: Reports systems reviewed and no addt'l complaints, except as documented Neurologic Neurologic: Reports systems reviewed and no addt'l complaints, except as documented Psychiatric Psychiatric: Reports systems reviewed and no addt'l complaints, except as documented Endocrine Endocrinology: Reports systems reviewed and no addt'l complaints, except as documented Hematologic/Lymphatic Hematologic/Lymphatic: Reports as per HPI Allergic/Immunologic Allergic/Immunologic: Reports systems reviewed and no addt'l complaints, except as documented Physical Exam Const alert and oriented x3 HEENT normocephalic Eyes EOMs intact bilaterally Chest Chest Narrative: Increased AP diameter Resp normal respiratory effort Resp Narrative: MediPort in the right infraclavicular area. Auscultation: diminished lung sounds diffuse Cardio Cardio Narrative: Distant heart tones due to body habitus Rate: regular rate Rhythm: abnormal rhythm irregularly irregular Heart Sounds: S1 normal and S2 normal; Negative for click, gallop or murmur GI GI Narrative: Obese Extremity General Extremity: edema bilateral lower extremity Details: mild Psych mental status grossly normal Charges/Coding Visit Charges Inpatient E&M: 57676 Init Hosp L2 Objective Data Vital Signs: Vital Signs Temp Pulse Resp BP Pulse Ox O2 Del Method O2 Flow Rate 98.5 F 78 22 H 105/55 L 97 Nasal Cannula 3 04/17/25 22:00 04/18/25 07:37 04/18/25 07:37 04/18/25 04:00 04/18/25 04:00 04/18/25 04:00 04/18/25 04:00 FiO2 30 04/18/25 00:50 Oxygen Flow Rate (L/min) 3 Oxygen Delivery Method Nasal Cannula Weight: 264 lb 8.875 oz Body Mass Index (BMI) 37.9 Intake & Output: Intake and Output for Last 24 Hours 04/16/25 04/17/25 04/18/25 23:59 22:59 23:59 Intake Total 1799.98 / 1919.98 770 / 770 Output Total 3050 / 3450 1100 / 1600 700 / 700 Balance -1250.02 / -1530.02 -330 / -830 -700 / -700 Lab / Micro Data 04/18/25 04:36 04/18/25 04:36 Labs: Laboratory Results - last 24 hr 04/17/25 11:31: POC Glucose 95 04/17/25 16:32: POC Glucose 110 H 04/17/25 21:18: POC Glucose 94 04/18/25 04:36: WBC 24.1 H, RBC 3.34 L, Hgb 8.8 L, Hct 28.0 L, MCV 83.8, MCH 26.3 L, MCHC 31.4 L, RDW Std Deviation 52.9 H, RDW Coeff of Iram 17.6 H, Plt Count 204, MPV 10.0, Immature Gran % (Auto) 1.400 H, Neut % (Auto) 87.4 H, Lymph % (Auto) 2.0 L, [place] % (Auto) 8.1, Eos % (Auto) 0.9, Baso % (Auto) 0.2, Absolute Neuts (auto) 21.1 H, Absolute Lymphs (auto) 0.49 L, Nucleated RBC % 0, Differential Comment SCANNED, Platelet Estimate ADEQUATE, Anisocytosis 1+, Ovalocytes 2+, Acanthocytes (Spur) RARE, Schistocytes RARE, Sodium 136, Potassium 3.6, Chloride 100, Carbon Dioxide 25.4, Anion Gap 10, BUN 31 H, Creatinine 1.58 H, Estim Creat Clear Calc 49.22 L, Est GFR (MDRD) Non-Af 44 L, BUN/Creatinine Ratio 19.8, Glucose 90, Calcium 8.3, Magnesium 1.9, Vancomycin Trough 25.3 H 04/18/25 06:00: POC Glucose 83 Rhythm Strip Rhythm Strip: A-fib Rate: 70 Cardiology Labs/Tests 04/18/25 04:36: WBC 24.1 H, RBC 3.34 L, Hgb 8.8 L, Hct 28.0 L, MCV 83.8, MCH 26.3 L, MCHC 31.4 L, Plt Count 204, MPV 10.0, Immature Gran % (Auto) 1.400 H, Neut % (Auto) 87.4 H, Lymph % (Auto) 2.0 L, [place] % (Auto) 8.1, Eos % (Auto) 0.9, Baso % (Auto) 0.2, Absolute Neuts (auto) 21.1 H, Nucleated RBC % 0, Sodium 136, Potassium 3.6, Chloride 100, Carbon Dioxide 25.4, Anion Gap 10, BUN 31 H, Creatinine 1.58 H, Est GFR (MDRD) Non-Af 44 L, BUN/Creatinine Ratio 19.8, Glucose 90, Calcium 8.3, Magnesium 1.9 Rhythm: EKG: ECHO: Stress Test: Cardiac Cath: PCI: CT Surgery: Holter monitor: EPS: PPM: CXR: Chest CT Scan: HARSHA Risk Score for UA/STEMI Assesmment (YES = 1) Risk Stratification Applicable: No
[2025-04-18] MEDS: APIXABAN 5 MG TABLET PO ×2 (10:07→22:18)
[2025-04-18] MEDS: Metoprolol(XL)Succ 50 MG Tablet PO (10:07)
[2025-04-18] MEDS: guaiFENesin/D-Methorphan TAB.SR.12H 1 TABLET PO ×2 (10:08→22:18)
--- NOTE | 2025-04-18 11:26 | WOUNDNOTE ---
wound photo: right buttock/inner thigh
--- NOTE | 2025-04-18 11:27 | WOUNDNOTE ---
wound photo: right hip
[2025-04-18 17:23] LABS: Vancomycin, Random Level 21.0 ug/mL (0.0-15.0)
--- NOTE | 2025-04-18 20:25 | PCM.RX.CS ---
Consult Antibiotic Management Pharmacy has been consulted to manage selected antibiotic: Vancomycin Type of Intervention Type of Consult: Follow-up Suspected Infection Suspected Infection: Sepsis and Pneumonia Labs Labs: Sodium 136 mmol/L (133-145) 04/18/25 04:36 Potassium 3.6 mmol/L (3.3-5.1) 04/18/25 04:36 Chloride 100 mmol/L (98-108) 04/18/25 04:36 Carbon Dioxide 25.4 mmol/L (21.0-32.0) 04/18/25 04:36 Anion Gap 10 (5-15) 04/18/25 04:36 BUN 31 mg/dL (4-19) H 04/18/25 04:36 Creatinine 1.58 mg/dL (0.70-1.20) H 04/18/25 04:36 Est GFR (MDRD) Non-Af 44 (>60) L 04/18/25 04:36 BUN/Creatinine Ratio 19.8 RATIO (10-20) 04/18/25 04:36 Glucose 90 mg/dL (70-99) 04/18/25 04:36 Vancomycin Trough 25.3 ug/mL (5.0-15.0) H 04/18/25 04:36 Random Vancomycin 21.0 ug/mL (0.0-15.0) H 04/18/25 16:40 Microbiology Microbiology: Microbiology 04/09/25 16:46 Blood Culture (Wb) - Anticubital Right Blood Culture - Final No growth in 5 days. 04/09/25 16:46 Blood Culture (Wb) - Right Forearm Blood Culture - Final No growth in 5 days. 04/10/25 09:15 Sputum, Expectorated/Coughed Gram Stain - Final 04/10/25 09:15 Sputum, Expectorated/Coughed Respiratory Culture - Final Presumptive C albicans 04/09/25 16:53 Urine, Catheterized Urine Culture - Final Enterococcus faecium 04/09/25 16:53 Urine Catheter - [place] Legionella Antigen - Final 04/09/25 16:53 Urine Catheter - [place] Streptococcus pneumoniae Antigen (M - Final 04/09/25 16:53 Mucosa - Nose SARS-CoV-2, Influenza & RSV (PCR) - Final Estimated Creatinine Clearance Estimated Creatinine Clearance: 49.2 Goal Trough Goal Trough: 15-20 mcg/mL Pharmacy Plan for Drug Dosing Pharmacy Plan for Drug Dosing: Pharmacy Service will continue to monitor and adjust dosing as required. VANCOMYCIN LEVEL RECEIVED Current Vancomycin Dose: Held, most recent dose: 1500 mg Q24H Number of Doses Received: Many Vancomycin Level: 21 Hours Since Last Dose: 35.5 Renal Function: SCr: 1.58, CrCl: 49.2 Renal Function Trend: Worsening Vancomycin Plan: Plan one time dose of 1500 mg 04/19/25 @ 0500 when trough level should be 17.5 per vancomycin kinetics calculations using 2 most recent levels Comments: Plan to discontinue vancomycin 04/19/25 Pending Level: NONE Date/Time Labs Ordered Labs to be done on [date and time ordered]: NONE
[2025-04-19] VITALS (13 sets, daily range): BP systolic 117–125; BP diastolic 48–108; PULSE 60–86; RESP 14–32; TEMP 36.4–36.6; O2SAT 95–98; BMI 39.2
[2025-04-19] MEDS: Ipratropium 0.5 MG/2.5 ML SOLUTION INHALATION ×4 (01:30→19:50)
[2025-04-19] MEDS: Acetylcysteine 800 MG/4 ML VIAL.NEB. INHALATION ×4 (01:30→19:50)
[2025-04-19] MEDS: 0.9% Saline Lock 10 ML Syringe IV ×2 (04:24→21:04)
[2025-04-19] MEDS: Vancomycin HCl 1,500 MG in 0.9% Normal Saline (500mL Bag) 500 ML 250 MG IV (04:28)
[2025-04-19] MEDS: Budesonide Respules 0.5 MG/2 ML AMPUL.NEB. INHALATION ×2 (06:24→19:50)
--- NOTE | 2025-04-19 06:26 | CPS ---
pt refusing chest vest this morning.
[2025-04-19 07:31] LABS: Anion Gap 9 (5-15); BUN 33 mg/dL (4-19); BUN/Creat Ratio 22.3 RATIO (10-20); Calcium,Total 8.7 mg/dL (7.6-11.0); Carbon Dioxide 26.4 mmol/L (21.0-32.0); Chloride 103 mmol/L (98-108); Estimated Creatinine Clearance 52.78 ml/min (50-250); Glucose 103 mg/dL (70-99); Potassium 3.6 mmol/L (3.3-5.1)
--- NOTE | 2025-04-19 08:32 | PN.HOSP_ITS ---
Reason for Visit
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
[2025-04-19] MEDS: APIXABAN 5 MG TABLET PO ×2 (09:28→21:04)
[2025-04-19] MEDS: Metoprolol(XL)Succ 50 MG Tablet PO (09:28)
[2025-04-19] MEDS: guaiFENesin/D-Methorphan TAB.SR.12H 1 TABLET PO ×2 (09:28→21:04)
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
[2025-04-20] VITALS (15 sets, daily range): BP systolic 110–150; BP diastolic 51–75; PULSE 62–79; RESP 14–28; TEMP 36.2–37.1; O2SAT 94–99; BMI 38.7
[2025-04-20] MEDS: Ipratropium 0.5 MG/2.5 ML SOLUTION INHALATION ×4 (01:30→17:03)
[2025-04-20] MEDS: Acetylcysteine 800 MG/4 ML VIAL.NEB. INHALATION ×4 (01:30→17:03)
[2025-04-20 05:05] LABS: Hematocrit 28.1 % (40-54); Hemoglobin 8.7 g/dL (13.0-16.5); Immature Granulocytes Count 0.260 X10^3/uL (0.0-0.0); Mean Corp Hgb Conc 31.0 g/dL (32-36); Mean Corpuscular Volume 84.9 fL (80-94); Mean Platelet Vol. 10.6 fl (6.2-12.0); NRBC Flagged by Analyzer 0 % (0-5); POSITIVE DIFFERENTIAL YES; Platelet Count 209 K/mm3 (150-450); RBC Distribution Width CV 17.5 % (11.6-14.6); RBC Distribution Width SD 53.8 fl (35.1-43.9); Red Blood Count 3.31 M/mm3 (4.6-6.2); White Blood Count 23.4 K/mm3 (4.4-11.0)
[2025-04-20 05:09] LABS: Differential Indicated SCAN CRITERIA MET
[2025-04-20 05:34] LABS: Anion Gap 12 (5-15); BUN 29 mg/dL (4-19); BUN/Creat Ratio 18.9 RATIO (10-20); Calcium,Total 8.4 mg/dL (7.6-11.0); Carbon Dioxide 25.3 mmol/L (21.0-32.0); Chloride 103 mmol/L (98-108); Estimated Creatinine Clearance 51.73 ml/min (50-250); Glucose 89 mg/dL (70-99); Potassium 3.5 mmol/L (3.3-5.1)
[2025-04-20 05:53] LABS: Differential Comment SCANNED; Toxic Granulation 2+
[2025-04-20 05:55] LABS: Magnesium 2.1 mg/dL (1.5-2.2)
[2025-04-20] MEDS: 0.9% Saline Lock 10 ML Syringe IV ×4 (06:12→22:33)
[2025-04-20] MEDS: Budesonide Respules 0.5 MG/2 ML AMPUL.NEB. INHALATION ×2 (06:46→17:03)
--- NOTE | 2025-04-20 08:07 | PN.HOSP_ITS ---
Reason for Visit
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
--- NOTE | 2025-04-20 08:17 | PCM.PN.TICU ---
Objective Data Objective Data Vital Signs: Vital Signs Last response Temperature 36.4 C L 04/20/25 06:06 Temperature Source Temporal 04/20/25 06:06 Pulse Rate 72 04/20/25 06:46 Pulse Strength Weak (1+) 04/17/25 22:00 Respiratory Rate 20 H 04/20/25 06:46 Respiratory Effort Normal, Non-Labored 04/20/25 03:06 Respiratory Depth Normal 04/20/25 03:06 Respiratory Pattern Tachypnea 04/20/25 06:46 Blood Pressure 146/58 H 04/20/25 06:06 Blood Pressure Mean 87 04/20/25 06:06 Blood Pressure Source Monitor 04/20/25 06:06 Blood Pressure Position Semi-Fowlers 04/20/25 06:06 Blood Pressure Location Right Arm 04/20/25 06:06 Pulse Ox 94 04/20/25 06:46 Oxygen Delivery Method Nasal Cannula 04/20/25 06:46 Oxygen Flow Rate (L/min) 3 04/20/25 06:46 Fraction of Inspired Oxygen (FIO2) 30 04/20/25 05:20 I&O: I&O Last 24 Hours 04/19/25 04/19/25 04/20/25 11:59 23:59 11:59 Intake Total 530 / 530 360 / 360 Output Total 400 / 1700 1300 / 1700 400 / 400 Balance 130 / -1170 -1300 / -1170 -40 / -40 I&O: Total Stay 04/09/25 16:21 thru 04/20/25 06:20 Intake Total 20628.23 Output Total 17925 Balance 1191.23 Current Meds Ordered / Administered: Current meds ordered / Administered Generic Name Dose Route Start Last Admin Trade Name Freq PRN Reason Stop Dose Admin Acetaminophen 1,000 mg 04/09/25 19:58 04/19/25 21:02 Acetaminophen 500 Mg Tablet PO 1,000 mg Q6H PRN PRN Administration Pain Score 1-10 Acetylcysteine 800 mg 04/17/25 08:15 04/20/25 06:46 Acetylcysteine 800 Mg/4 Ml Vial.Neb. INHALATION 800 mg Q6H.RT NATALIE Administration Apixaban 5 mg 04/16/25 12:30 04/19/25 21:04 Apixaban 5 Mg Tablet PO 5 mg Q12 NATALIE Administration Atorvastatin Calcium 40 mg 04/09/25 22:00 04/19/25 21:04 Atorvastatin Calcium 40 Mg Tablet PO 40 mg QHS NATALIE Administration Budesonide 0.5 mg 04/09/25 22:00 04/20/25 06:46 Budesonide Respules 0.5 Mg/2 Ml Ampul.Neb. INHALATION 0.5 mg Q12H.RT NATALIE Administration Calamine/Phenol 1 applic 04/15/25 10:00 04/19/25 21:07 Menthol/Lanolin/Calamine/Znox 113 Gm Tube TOPICAL 1 applic BID NATALIE Administration Protocol Digoxin 125 mcg 04/17/25 10:00 04/19/25 09:28 Digoxin 125 Mcg Tablet PO 125 mcg DAILY NATALIE Administration Docusate Sodium 100 mg 04/09/25 22:00 04/19/25 21:03 Docusate Sodium 100 Mg Capsule PO 100 mg BID NATALIE Administration Ferrous Sulfate 325 mg 04/10/25 12:00 04/19/25 11:20 Ferrous Sulfate 325 Mg Tablet PO 325 mg DAILY@1200 NATALIE Administration Furosemide 40 mg 04/19/25 14:00 04/20/25 06:12 Furosemide 40 Mg/4 Ml Vial IV 40 mg TID NATALIE Administration Protocol Glucagon 1 mg 04/09/25 19:58 Glucagon 1 Mg/Ml Syringe IM X1 PRN Hypoglycemia Protocol Glycerin/Hypromellose/Polyethylene 1 drp 04/09/25 19:58 Glycerin/Hypromellose/[id number] 15 Ml Bottle EACH EYE Q1H PRN PRN DRY EYES Guaifenesin 1 tablet 04/17/25 10:00 04/19/25 21:04 Guaifenesin/D-Methorphan Tab.Sr.12h PO 1 tablet BID NATALIE Administration Vancomycin IV-PHARMACY TO DOSE 500 mls @ 250 mls/hr 04/09/25 19:58 1 each/ Sodium Chloride IV PRN PRN Rx to Dose Protocol Dextrose 250 mls @ 0 mls/hr 04/09/25 19:58 Dextrose 10%-Water IV .Q0M PRN HYPOGLYCEMIA Protocol As Directed Sodium Chloride 250 mls @ 15 mls/hr 04/09/25 20:25 IV .[id number] PRN Saline Flush Sodium Chloride 250 mls @ 15 mls/hr 04/09/25 20:25 IV .[id number] PRN Additional IVPB Infusion Amiodarone HCl 150 mg/ 103 mls @ 600 mls/hr 04/17/25 08:37 Dextrose IV BOLUS X1 PRN HR >130/m Insulin Human Lispro 0 unit 04/09/25 22:00 04/20/25 06:58 Insulin Lispro 100 Unit/Ml Insuln.Pen SC Not Given ACHS [facility] Protocol Ipratropium [place] 0.5 mg 04/18/25 12:00 04/20/25 06:46 Ipratropium 0.5 Mg/2.5 Ml Solution INHALATION 0.5 mg Q6H.RT NATALIE Administration Levothyroxine Sodium 50 mcg 04/10/25 06:00 04/20/25 06:12 Levothyroxine 50 Mcg Tablet PO 50 mcg DAILY@0600 NATALIE Administration Losartan Potassium 50 mg 04/17/25 12:00 04/19/25 11:20 Losartan Potassium 50 Mg Tablet PO 50 mg LUNCH NATALIE Administration Protocol Metoprolol Succinate 50 mg 04/17/25 10:00 04/19/25 09:28 Metoprolol(Xl)Succ 50 Mg Tablet PO 50 mg DAILY NATALIE Administration Protocol Nystatin 1 applic 04/20/25 10:00 Nystatin Powder 15gm Bottle TOPICAL BID [facility] Protocol Ondansetron HCl 4 mg 04/09/25 19:58 Ondansetron 4 Mg/2 Ml Vial IV Q8H PRN PRN NAUSEA/VOMITING Oxycodone HCl 5 mg 04/09/25 19:58 04/18/25 16:15 Oxycodone 5 Mg Tablet PO 5 mg Q6H PRN PRN Administration pain 1-10 Pantoprazole Sodium 40 mg 04/09/25 22:00 04/19/25 21:04 Pantoprazole Sodium 40 Mg Tablet PO 40 mg BID NATALIE Administration Pramipexole Dihydrochloride 0.5 mg 04/09/25 22:00 04/20/25 06:12 Pramipexole Di-Hcl 0.5 Mg Tablet PO 0.5 mg TID NATALIE Administration Sodium Chloride 2 spray 04/09/25 19:58 Sodium Chloride 0.65% 1 [place].Btl NASAL Q2H PRN PRN dry nasal passages Sodium Chloride 10 - 40 ml 04/09/25 20:25 04/20/25 06:12 0.9% Saline Lock 10 Ml Syringe IV 20 ml UD PRN Administration SALINE FLUSH Sucralfate 1 gm 04/10/25 07:00 04/20/25 06:12 Sucralfate 1 Gm Tablet PO 1 gm TID@0700,1100,1600 [facility] Administration Trazodone HCl 100 mg 04/15/25 22:00 04/19/25 21:04 Trazodone 100 Mg Tablet PO 100 mg QHS NATALIE Administration Lab / Micro Data 04/20/25 03:55 04/20/25 03:55 Labs: Laboratory Results - last 24 hr 04/19/25 11:06: POC Glucose 129 H 04/19/25 16:11: POC Glucose 93 04/19/25 21:10: POC Glucose 93 04/20/25 03:55: WBC 23.4 H, RBC 3.31 L, Hgb 8.7 L, Hct 28.1 L, MCV 84.9, MCH 26.3 L, MCHC 31.0 L, RDW Std Deviation 53.8 H, RDW Coeff of Iram 17.5 H, Plt Count 209, MPV 10.6, Immature Gran % (Auto) 1.100 H, Neut % (Auto) 87.8 H, Lymph % (Auto) 3.1 L, [place] % (Auto) 7.0, Eos % (Auto) 0.9, Baso % (Auto) 0.1, Absolute Neuts (auto) 20.5 H, Absolute Lymphs (auto) 0.72 L, Nucleated RBC % 0, Differential Comment SCANNED, Toxic Granulation 2+, Sodium 140, Potassium 3.5, Chloride 103, Carbon Dioxide 25.3, Anion Gap 12, BUN 29 H, Creatinine 1.52 H, Estim Creat Clear Calc 51.73, Est GFR (MDRD) Non-Af 46 L, BUN/Creatinine Ratio 18.9, Glucose 89, Calcium 8.4, Magnesium 2.1 04/20/25 06:41: POC Glucose 89 ABG Data ABG results: ABG 04/17/25 07:27 Specimen Type ART Sample Site L Radial pH 7.44 Bicarbonate Actual 29.1 H Total CO2 31 Base Excess 5 H O2 Saturation 98 O2 % 40.0 ABG pCO2 42.7 ABG pO2 96 John Test Negative Respiration Rate 14 O2 Delivery Device BiPAP Vent Mode Not entered POC PEEP 8 Rhythm Strip Rhythm Strip: A-fib Rate: 70 Ectopy: None Imaging Radiology Impression Chest X-Ray 04/17/25 05:10 IMPRESSION: Cardiomegaly with vascular congestion, CHF. No sizable pleural effusion. Reading Location: [id number] Assessment and Plan . Assessment and plan: Critical Care Time: The entirety of this encounter was done via Telemedicine Subjective Subjective Pt seen and examined. Intermittent bradycardia noted; no RVR. Denies worsening SOB/cough. PE: GEN morbidly obese acute on chronically ill HEENT PERRL/EOMI; MMM; neck supple, hard to asses JVD COR irreg; +S1/S2; no heaves CHEST diminished with bibasilar crackles ABD obese, soft EXT warm; 1-2+ BLE pitting edema (Lt > Rt) SKIN w/d PRISCILA A&Ox3; grossly NF A/P: #Septic shock- resolved #Enterococcal UTI #PH with cor pulmonale #COPD #Chronic AF #Renal insufficiency w/ oliguria #Obesity #Advanced NSCLC #Delirium / encephalopathy #Adult failure to thrive #Chronic debility -Cont supplemental O2, titrate to keep sats ~88-90%; down to 2L O2 (uses 3L at home) and subjectively stable; cont NIV qHS -SP vanc course for UTI; monitor temp curve/WBC/band % -Cont rate control agents, Eliquis; cardiology consulted -Cont diuresis; strict I/Os -On-going discussions with palliative/hospice care --> I did discuss his overall condition and goals this morning and patient asked for my recommendation; I gave him my opinion that he was most appropriate for hospice/palliative care at this time and he nodded understanding; I encouraged him to continue talking with in-patient palliative care team and to discuss further with his -LLE US to R/O DVT; if positive may consider changing to different oral anticoagulant and getting IVF filter if patient still wishes for aggressive measures -PT/OT PO diet Eliquis, PPI Poor overall prognosis; patient declines hospice at this time DNR/DNI Will sign off but remain available as needed. The entirety of this encounter was done via Telemedicine
[2025-04-20] MEDS: APIXABAN 5 MG TABLET PO ×2 (08:43→22:33)
[2025-04-20] MEDS: guaiFENesin/D-Methorphan TAB.SR.12H 1 TABLET PO ×2 (08:43→22:32)
[2025-04-20] MEDS: Metoprolol(XL)Succ 50 MG Tablet PO (08:44)
--- NOTE | 2025-04-20 08:49 | PCM.PN.PAL ---
Subjective Subjective 04/20/25: prior to meeting with the pt at bedside, I reviewed labs, radiological studies and documentation since last assessment. I then met with Raul at bedside. I did reintroduce myself and ask him how he was feeling. Pt is significantly SOB and has been unable to be discharged to TCU because of not being medically stable. I did inform him of provider notes by Dr. Moore discussion with the pts oncologist Dr. Marcial, about the inability to receive radiation related to the inability to lay flat. Pt said, I can lay flat. He is currently sitting at 90 degrees with significant dyspnea and speaking in 2-3 word sentences. He then said Im gonna fight it. I do feel he lacks insight into the severity of his illness and how much he has deteriorated since admission. I did note that he has 3+ non pitting edema to the left foot with 2+ edema to the right. While discussing goals of care, he did request I come back when his will be here. He is unsure what time she will arrive. I will continue to check in with him today to try and catch his . I do feel that, despite medical management, the patient has deteriorated since last assessment. The pt would be hospice appropriate if he so chooses, was not available today will attempt to meet with them again tomorrow. 04/15/25: Prior to meeting with the patient at bedside I reviewed extensive documentation labs and radiological studies. I then met with the patient Raul and his at bedside. I introduced myself and the concept of palliative care in which they voluntarily excepted my services. I had an extensive discussion with the patient and his about goals of care going forward given his lung cancer with metastasis to the liver and lymph nodes and the life-limiting diagnosis what his wishes would be going forward. I did present his diagnosis and multiple different ways in which Raul perseverated on the fact that he has not been sleeping very well in the hospital and that if I can just go home for 1 day and get some sleep I will be much better. His and I then just reminded him that he has been in the hospital multiple times for the same complaint and that going home right now may not be the best decision. I did indicate to him that all decisions are between him and his and that I would present the information for them to make the best educated decisions going forward. They stated appreciation. Vickey was admitted on 04/09/2025. He came back to the emergency department because he was experiencing fevers. He just had a stay in the hospital for UTI in which he was just charged on 04/03/2025. He was diagnosed with lung cancer in 2017 and had a VATS procedure he was then told that his lung cancer had returned on 03/15/2025 it was seen on his scans that he now has liver lesions with metastasis to the liver. He has been offered palliative radiation for pain management. Raul does have a history of severe COPD in which he is on 2 L nasal cannula at baseline. He also has diabetes with neuropathy and atrial fibrillation. When he was admitted through the emergency department on this admission he was experiencing hypotension in the emergency department and they did place him on Levophed and moved him to the ICU. Once stabilized he was then weaned off of the Levophed and transferred to PCU. He does did appear to have a pneumonia on top of his lung cancer, at this time. The acknowledges that he is severely debilitated from his repeat hospitalizations. I do feel that the patient does lack some insight into his abilities as his insistence of wanting to return home. By the end of our discussion Raul was agreeable to going to rehab to get stronger in hopes of continuing his cancer care with palliative chemo and radiation. He did state that he has not been sleeping well and I did speak with Dr. Aguilar in which she was agreeable to increase his trazodone to 100 mg p.o. every night. Vickey is interested in [facility] palliative care from an outpatient standpoint. He does not feel that he is ready for hospice at this time. Patient's was in agreement. All questions the patient and his had were answered. Palliative care will continue to follow for goals of care conversations as his clinical picture evolves. Patient has requested to transition to the TCU unit and be able to have his palliative radiation on Friday. Patient and are aware that the patient would most likely not be able to continue with palliative chemotherapy as he is too weak to be able to tolerate it, at this time. He understands that rehab may be the best plan for him going forward. Patient and are in agreement I did convey this information to social work/case management. Objective Data Objective Data Vital Signs: Vital Signs Temp Pulse Resp BP Pulse Ox O2 Del Method O2 Flow Rate 98 F 72 18 150/57 H 97 Nasal Cannula 2 04/20/25 08:40 04/20/25 08:44 04/20/25 08:40 04/20/25 08:44 04/20/25 08:40 04/20/25 08:40 04/20/25 08:40 FiO2 30 04/20/25 05:20 Oxygen Flow Rate (L/min) 2 Oxygen Delivery Method Nasal Cannula Weight: 270 lb 1.06 oz Body Mass Index (BMI) 38.7 Intake & Output: Intake and Output for Last 24 Hours 04/18/25 04/19/25 04/20/25 23:59 23:59 23:59 Intake Total 610 / 610 530 / 530 360 / 360 Output Total 1450 / 1450 1700 / 1700 400 / 400 Balance -840 / -840 -1170 / -1170 -40 / -40 Lab / Micro Data Attestation: I reviewed the patient's lab results. 04/20/25 03:55 04/20/25 03:55 Labs: Laboratory Results - last 24 hr 04/19/25 11:06: POC Glucose 129 H 04/19/25 16:11: POC Glucose 93 04/19/25 21:10: POC Glucose 93 04/20/25 03:55: WBC 23.4 H, RBC 3.31 L, Hgb 8.7 L, Hct 28.1 L, MCV 84.9, MCH 26.3 L, MCHC 31.0 L, RDW Std Deviation 53.8 H, RDW Coeff of Iram 17.5 H, Plt Count 209, MPV 10.6, Immature Gran % (Auto) 1.100 H, Neut % (Auto) 87.8 H, Lymph % (Auto) 3.1 L, [place] % (Auto) 7.0, Eos % (Auto) 0.9, Baso % (Auto) 0.1, Absolute Neuts (auto) 20.5 H, Absolute Lymphs (auto) 0.72 L, Nucleated RBC % 0, Differential Comment SCANNED, Toxic Granulation 2+, Sodium 140, Potassium 3.5, Chloride 103, Carbon Dioxide 25.3, Anion Gap 12, BUN 29 H, Creatinine 1.52 H, Estim Creat Clear Calc 51.73, Est GFR (MDRD) Non-Af 46 L, BUN/Creatinine Ratio 18.9, Glucose 89, Calcium 8.4, Magnesium 2.1 04/20/25 06:41: POC Glucose 89 Micro: Microbiology 04/09/25 16:46 Blood Culture (Wb) - Anticubital Right Blood Culture - Final No growth in 5 days. 04/09/25 16:46 Blood Culture (Wb) - Right Forearm Blood Culture - Final No growth in 5 days. 04/10/25 09:15 Sputum, Expectorated/Coughed Gram Stain - Final 04/10/25 09:15 Sputum, Expectorated/Coughed Respiratory Culture - Final Presumptive C albicans 04/09/25 16:53 Urine, Catheterized Urine Culture - Final Enterococcus faecium 04/09/25 16:53 Urine Catheter - Savage Legionella Antigen - Final 04/09/25 16:53 Urine Catheter - Savage Streptococcus pneumoniae Antigen (M - Final 04/09/25 16:53 Mucosa - Nose SARS-CoV-2, Influenza & RSV (PCR) - Final Rhythm Strip Rhythm Strip: A-fib Rate: 70 Ectopy: None Physical Exam Const alert and oriented x3 Constitutional Narrative: Patient does experience some intermittent confusion although at the time of assessment he was oriented x 3 HEENT normocephalic Eyes Eyes Narrative: Corrective lenses Neck General: trachea midline Lymph Lymphatic: lymphedema Resp Effort and Inspection: tachypneic, labored and other Patient is unable to speak in complete sentences. Auscultation: wheezes and diminished lung sounds Cardio Cardio Narrative: Atrial fibrillation and tachycardic Rate: tachycardic Rhythm: abnormal rhythm GI Inspection: abdominal distention Extremity General Extremity: edema bilateral (4+ pitting edema bilaterally) Skin no rashes or lesions noted Neuro CN's II-XII intact bilaterally Neuro Narrative: Patient has hoarse speech Psych Psych Narrative: I do feel that the patient lacks insight into his illness. Mood & Affect: depressed and anxious Insight: limited and other I do feel that the patient lacks insight into the severity of his illness. Judgement: limited Charges/Coding Palliative Care Palliative Care: [id number] Follow up 50+ min Consulation Summary Current admission Current Code Status: DNRCC-A no intubation Associated Diagnosis: non small cell lung CA with mets Consult Data Date of Consult: 04/18/25 Location of consult: PCU Reason for referral: Goals of care Referral source: Dr. aguilar Palliative care diagnosis (Summary list): Lung cancer with mets to the liver Palliative care services/treatment (Accepted, as consult): Accepted Case discussed with referring provider: MARCO ANTONIO about goals after discussion with Palliative Assessment Advanced Directive - Current Admission Advance Directive: Advance Directive ON ADMISSION - REFERENCE Do you have a Healthcare Yes 04/09/25 20:13 Living Will? Is a Healthcare Living Will Yes, It is scanned in 04/09/25 20:13 present in the medical record? Do you have a Healthcare Power Yes 04/09/25 20:13 of Licensed And Certified Midwife? Is a Healthcare Power of No, requested patient bring 04/09/25 20:13 Licensed And Certified Midwife present in the copy into [facility] medical rec Name of Medical Power of 04/09/25 16:33 Licensed And Certified Midwife Do You Want Additional Declined 04/09/25 20:13 Information on Advanced Directives or Symptoms Dyspnea symptoms: Severe Fatigue symptoms: Moderate Weakness symptoms: Moderate Confusion symptoms: Mild Impression & Recommendations Impressions Impressions: Patient would be a candidate for hospice but he would like to continue with aggressive medical management recommend palliative outpatient Recommentation Palliative recommendations: Outpatient palliative care Encouter Achieved as a result of this Palliative Care Encounter: [[id number], [id number], [id number]] minutes were spent in total for this visit which consisted, primarily of counseling and education dealing with the complex and emotionally intense issues of symptom management and palliative care in the setting of serious and potentially life-threatening illness. Review of documentation, labs and radiological studies. ?Patient/family had the opportunity to ask questions This note was generated with [employer] dictation software. It may contain incorrect words, spelling, and punctuation that were not noted in checking the note before signing. Plan (1) Hypoxemia: PLAN: Medical management per primary team (2) DELVIS (acute kidney injury): PLAN: Medical management per primary team (3) Atrial fibrillation with RVR: PLAN: Medical management per primary team (4) Regional lymph node metastasis present: PLAN: Medical management per primary team (5) Insomnia: PLAN: *Okay with Dr. Aguilar to increase the patient's nighttime trazodone to 100 mg (6) Adrenal mass: PLAN: Medical management per primary team (7) Goals of care, counseling/discussion: PLAN: *Patient would like to continue medical management of his cancer. *Patient would like to go to rehab to get stronger so that he can continue his treatments *Return home once he is strong enough *Additional goals of care conversations today in which the patient wanted to have his included on. was unable to be with us today but will check in tomorrow. (8) Palliative care encounter: PLAN: *Palliative care outpatient GRADY Mitchell Did develop a burn on his right buttocks from a heating pad during last hospitalization all review of systems were negative except as mentioned above in the history of present illness and the other review of systems. Constitutional Constitutional: Reports as per HPI, chills, fatigue, weakness and weight gain Eyes Eyes: Reports systems reviewed and no addt'l complaints, except as documented; Denies change in vision or diplopia ENT HEENT: Reports systems reviewed and no addt'l complaints, except as documented; Denies rhinorrhea or sore throat Cardiovascular Cardiovascular: Reports as per HPI, dyspnea and leg edema; Denies chest pain or palpitations Respiratory/Chest Respiratory/Chest: Reports as per HPI, cough, dyspnea, dyspnea on exertion, portable oxygen @ home and wheezing Gastrointestinal Gastrointestinal: Reports systems reviewed and no addt'l complaints, except as documented; Denies diarrhea, nausea or vomiting Genitourinary Genitourinary: Reports systems reviewed and no addt'l complaints, except as documented and as per HPI; Denies hematuria Musculoskeletal Musculoskeletal: Reports systems reviewed and no addt'l complaints, except as documented and other Details: 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 ; Denies suicidal thoughts Endocrine Endocrinology: Reports systems reviewed and no addt'l complaints, except as documented and as per HPI Hematologic/Lymphatic Hematologic/Lymphatic: Reports as per HPI Allergic/Immunologic Allergic/Immunologic: Reports systems reviewed and no addt'l complaints, except as documented and as per HPI
--- NOTE | 2025-04-20 10:24 | VDLE_ITS ---
Reason For Study VL/Venous Duplex US, Unilateral
--- NOTE | 2025-04-20 15:25 | PCM.PN.ID ---
Physical Exam Narrative Feeling about the same, slightly better. No fever. Still some dyspnea and cough. No abd pain, no n/v/d. Const alert and no apparent distress Resp Auscultation: diminished lung sounds Cardio regular rate and regular rhythm GI soft to palpation, non-tender and non-distended Extremity General Extremity: edema Skin no rashes or lesions noted ID ID: Route of nutrition/ use of supplements: [] Nutritional Intake: [] IV Site: [] Savage Catheter: [] Assessment & Plan Assessment/Plan (1) DELVIS (acute kidney injury): (2) Acute UTI: (3) Septic shock: PLAN: suspect uti as source. Ucx with e faecium, overall improved with iv vanc. New afib with rvr, seen by cardiology, pulm, and palliative. Wbc improved over past few days. No clear sign of new infection, hopefully can stop abx soon if remains stable. Will follow
--- NOTE | 2025-04-20 17:27 | CPS ---
pt refusing vest
--- NOTE | 2025-04-20 23:43 | CPS ---
patient sleeping soundly satting 99% via nasal cannula
[2025-04-21] VITALS (10 sets, daily range): BP systolic 121–146; BP diastolic 42–73; PULSE 69–83; RESP 14–32; TEMP 36.5–36.9; O2SAT 93–100; BMI 38.2
[2025-04-21] MEDS: Ipratropium 0.5 MG/2.5 ML SOLUTION INHALATION ×2 (00:46→06:57)
[2025-04-21] MEDS: 0.9% Saline Lock 10 ML Syringe IV ×2 (05:11→14:52)
[2025-04-21] MEDS: Budesonide Respules 0.5 MG/2 ML AMPUL.NEB. INHALATION (06:57)
[2025-04-21] MEDS: Acetylcysteine 800 MG/4 ML VIAL.NEB. INHALATION (06:57)
--- NOTE | 2025-04-21 07:20 | PN.HOSP_ITS ---
Reason for Visit
--- NOTE | 2025-04-21 07:20 | PCM.PN.HOSP ---
Reason for Visit Chief Complaint: Fever Subjective Subjective Feeling well. Objective Data Objective Data Vital Signs: Vital Signs Temp Pulse Resp BP Pulse Ox O2 Del Method O2 Flow Rate 36.5 C L 76 20 H 146/73 H 94 Nasal Cannula 4 04/21/25 05:10 04/21/25 06:58 04/21/25 06:58 04/21/25 05:10 04/21/25 06:58 04/21/25 06:58 04/21/25 06:58 FiO2 30 04/21/25 00:46 Oxygen Flow Rate (L/min) 4 Oxygen Delivery Method Nasal Cannula Weight: 121.1 kg Body Mass Index (BMI) 38.2 Intake & Output: Intake and Output for Last 24 Hours 04/19/25 04/20/25 04/21/25 23:59 23:59 23:59 Intake Total 530 / 530 900 / 900 250 / 250 Output Total 1700 / 1700 1800 / 1800 500 / 500 Balance -1170 / -1170 -900 / -900 -250 / -250 Lab / Micro Data 04/20/25 03:55 04/21/25 07:42 Labs: Laboratory Results - last 24 hr 04/20/25 11:56: POC Glucose 88 04/20/25 16:41: POC Glucose 121 H 04/20/25 22:27: POC Glucose 119 H 04/21/25 06:16: POC Glucose 103 Micro: Microbiology 04/09/25 16:46 Blood Culture (Wb) - Anticubital Right Blood Culture - Final No growth in 5 days. 04/09/25 16:46 Blood Culture (Wb) - Right Forearm Blood Culture - Final No growth in 5 days. 04/10/25 09:15 Sputum, Expectorated/Coughed Gram Stain - Final 04/10/25 09:15 Sputum, Expectorated/Coughed Respiratory Culture - Final Presumptive C albicans 04/09/25 16:53 Urine, Catheterized Urine Culture - Final Enterococcus faecium 04/09/25 16:53 Urine Catheter - Savage Legionella Antigen - Final 04/09/25 16:53 Urine Catheter - Savage Streptococcus pneumoniae Antigen (M - Final 04/09/25 16:53 Mucosa - Nose SARS-CoV-2, Influenza & RSV (PCR) - Final Radiography Diagnostic Testing: Radiology Impression Venous Doppler Study 04/20/25 10:24 Interpretation Summary Deep veins of the left lower extremity are patent and compressible segmentally. There is no evidence of left lower extremity deep vein thrombosis. Valvular competence appears intact within the proximal deep venous system on the left . The left great saphenous vein was not visualized. Pulsatile flow is noted in the deep venous system on the left, which may be indicative of elevated central venous pressure (i.e. congestive heart failure, pulmonary hypertension, etc.). Clinical correlation is advised. Ordering Physician: Richar Jain Referring Physician: Swati Banerjee M.D. Performed By: Bandar Joiner RVT Rhythm Strip Rhythm Strip: A-fib Rate: 70 Ectopy: None Physical Exam Const alert and no apparent distress Constitutional Narrative: hoarse voice. HEENT head/scalp atraumatic and moist oral mucous membranes Resp normal respiratory effort, no retractions, no use of accessory muscles and clear to auscultation bilaterally Cardio regular rate, regular rhythm, S1 normal heart sound and S2 normal heart sound GI normal to inspection, nondistended, normoactive bowel sounds, soft to palpation, non-tender and non-distended Extremity Extremity Narrative: edema bilaterally, 2+ pitting in LE Neuro Sensorium / Orientation: awake and alert Assessment & Plan Assessment/Plan (1) Septic shock: (2) Pneumonia: PLAN: Plan Septic shock POA. now resolved due to UTI and pneumonia Present on arrival. Refer to HPI for SIRS criteria. Also compounded by DELVIS. Patient received 30 cc/kg IV fluid and still was hypotensive and started on norepinephrine. Started on hydrocortisone. Completed abx. 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 Creatinine from 04/01/2025 was 1.76 creatinine on admission was 2.26 patient started on IV fluid with subsequent monitoring of electrolytes Overall improving acute HFpEF EF 55%. continue IV furosemide TID. .08 liters positive, still with volume overload. Non-small cell lung cancer. Discussed with Dr. Marcial 04/18 and updated him on the patient's current condition. I informed him that the patient would not be able to lie flat which would be problematic at this time for the radiation as patient would require that. He and I both agreed to holding off any further radiation treatment until his medical condition warrants. Atrial fibrillation with RVR: resolved. POA. Likely reactive secondary to above. Overall his heart rate seems to be improved while is in the room is down to the low 100s. Back on metoprolol succinate Diabetes mellitus type 2: Sliding scale insulin Hypothyroidism: Continue levothyroxine Atrial fibrillation: Metoprolol held given septic shock. Not on anticoagulation Right gluteal skin burn secondary to a heating pad. This is a subsequent visit. The wound overall appears to be healing well. Continue with wound care and consult the wound nurse VTE prophylaxis with subcu heparin Disposition: to TCU hopefully today, check ambulatory oxygen. Charges/Coding Visit Charges Inpatient E&M: 47877 Subs Hosp L2
[2025-04-21 08:38] LABS: Anion Gap 11 (5-15); BUN 31 mg/dL (4-19); BUN/Creat Ratio 19.7 RATIO (10-20); Calcium,Total 9.0 mg/dL (7.6-11.0); Carbon Dioxide 27.1 mmol/L (21.0-32.0); Chloride 103 mmol/L (98-108); Estimated Creatinine Clearance 50.42 ml/min (50-250); Glucose 103 mg/dL (70-99); Potassium 3.4 mmol/L (3.3-5.1)
[2025-04-21] MEDS: APIXABAN 5 MG TABLET PO (09:10)
[2025-04-21] MEDS: Metoprolol(XL)Succ 50 MG Tablet PO (09:11)
[2025-04-21] MEDS: guaiFENesin/D-Methorphan TAB.SR.12H 1 TABLET PO (09:11)
--- NOTE | 2025-04-21 10:33 | PCM.PN.ID ---
Physical Exam Narrative Feeling better, no fever, breathing better, no n/v/d. Const alert and no apparent distress Resp Auscultation: diminished lung sounds Cardio regular rate and regular rhythm GI soft to palpation, non-tender and non-distended Skin no rashes or lesions noted ID ID: Route of nutrition/ use of supplements: [] Nutritional Intake: [] IV Site: [] Savage Catheter: [] Assessment & Plan Assessment/Plan (1) DELVIS (acute kidney injury): (2) Acute UTI: (3) Septic shock: PLAN: suspect uti as source. Ucx with e faecium, overall improved with course of iv vanc. New afib with rvr, seen by cardiology, pulm, and palliative. Wbc improved over past few days. No clear sign of new infection, remains stable off of abx. Will follow as needed
--- NOTE | 2025-04-21 14:10 | PCM.PN.BLA ---
Progress Note Pt not at bedside pt states that he wants to go to TCU and try to get stronger. I did speak with dr. Moore, in which he is stable to discharge to TCU today.
--- NOTE | 2025-04-21 14:18 | PCM.TXEXTCAR ---
Diet Diet Order/Speech Therapy: INPATIENT Hospital Diet / Speech Therapy Order(s) 04/09/25 19:58 Diet: Consistent Carb - Calorie Controlled Dietary Modifications:: No Added Salt Type of Dietary Supplement:: Glucerna Shake Diet Comments: smaller portions; 4 oz strawberry Glucerna with all meals How many daily calories?: 1999 calorie Routine Orders/Code Status Routine Lab Work: CBC (04/22, 04/25) and BMP (04/22, 04/25) Code Status: DNRCC-A (no intubation) DC O2, CPAP, BIPAP needs Home O2 Discharge instructions: Yes Type of respiratory needs?: Oxygen Oxygen frequency: Continuous Continuous oxygen liters per minute: 3 Wound(s) right hip: Wound Type: zamorano (from heating pad prior to admission) Dressing Change: dry dressing left foot: Wound Type: Amputation right buttock: Wound Type: shearing/moisture associated skin damage Therapies Weight Bearing: Full weight bearing Physical Therapy: Eval and Treat Occupational Therapy: Eval and Treat Problem/Diagnosis (1) Septic shock: Status: Acute Code(s): A41.9 - Sepsis, unspecified organism; R65.21 - Severe sepsis with septic shock (2) Pneumonia: Status: Acute Code(s): J18.9 - Pneumonia, unspecified organism Plan Septic shock POA. now resolved due to UTI and pneumonia Present on arrival. Refer to HPI for SIRS criteria. Also compounded by DELVIS. Patient received 30 cc/kg IV fluid and still was hypotensive and started on norepinephrine. Started on hydrocortisone. Completed abx. 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 Creatinine from 04/01/2025 was 1.76 creatinine on admission was 2.26 patient started on IV fluid with subsequent monitoring of electrolytes Overall improving acute HFpEF EF 55%. continue IV furosemide TID. .08 liters positive, still with volume overload. Non-small cell lung cancer. Discussed with Dr. Marcial 04/18 and updated him on the patient's current condition. I informed him that the patient would not be able to lie flat which would be problematic at this time for the radiation as patient would require that. He and I both agreed to holding off any further radiation treatment until his medical condition warrants. Atrial fibrillation with RVR: resolved. POA. Likely reactive secondary to above. Overall his heart rate seems to be improved while is in the room is down to the low 100s. Back on metoprolol succinate Diabetes mellitus type 2: Sliding scale insulin Hypothyroidism: Continue levothyroxine Atrial fibrillation: Metoprolol held given septic shock. Not on anticoagulation Right gluteal skin burn secondary to a heating pad. This is a subsequent visit. The wound overall appears to be healing well. Continue with wound care and consult the wound nurse VTE prophylaxis with subcu heparin Disposition: to TCU hopefully today, check ambulatory oxygen. Allergies/Procedures Done in Hospital Allergies No Known Allergies Allergy (Verified 03/30/25 16:00) Procedures: 2-D Echocardiogram Type of Care/Length of Stay Estimated LOS: Convalescent Care Less Than 30 days Type of Care Needed: Skilled Rehab Potential: Fair Prognosis: Fair Additional Orders/Day of Discharge Day of Discharge: 04/21/25 Dietary and Speech Recommendations Dietitian Recommendations/Changes: Continue 2000 calorie controlled/consistent carbohydrate no added salt diet. Continue 120mL strawberry glucerna shake TID with meals. Continue to follow and monitor for changes in pt nutritional status and make additional recommendations as needed. Discharge Plan Admission Admit Date/Time: 04/09/25 18:51 Primary Reason for Your Visit: septic shock Attending Provider: Titi Moore Primary Care Provider: Swati Banerjee Consulting Providers: Titi Moore; Penelope Fox; Ezio Kaufman; Vickey Castro; Morgan White; Federico Hagen; Cornell Ricardo; Suresh Storm; Ezio Schulte; Sue Pike; Kee Mccarthy; Clementina Iyer; Srinath Lopez; Cristy Fitzgerald; Taras Morales; Benji Richard; Ashley Wilson; Haim Bradley; Antwon Bran; Keaton Márquez; Lacie Gonzalez; Xi Finn; Sofi Du; Bria Pierce; Rory Hinkle; Leo Mcbride; Porsha Carey; Martha Moreno; Marc Wiseman; Angeles Downing; Porsha Quezada; Fermin Abbasi; Nathan Soni; John Padilla; Tamy Yates; Richar Jain; Flo Nolasco; Bart Mcmanus; Constance Ruibo; Shadia Oden; Cesar Grigsby; Paxton Stanley; Jose Manuel,Alex; Landon Mojica; Rudy Virgen; Chava Castaneda; Julio Cesar De Oliveira; Orestes Farr Instructions Additional Instructions / Restrictions: Consult radiation oncology to continue radiation treatment. Discharge Orders/Prescriptions Prescriptions: New digoxin 125 mcg (0.125 mg) Tablet 125 mcg PO DAILY Qty: 0 0RF Eliquis 5 mg Tablet 5 mg PO Q12 Qty: 0 0RF metoprolol succinate 50 mg Tablet Extended Release 24 Hr 50 mg PO DAILY Qty: 0 0RF nystatin 100,000 unit/gram Powder 1 applic topical BID Qty: 0 0RF Protocol: *Topical Application Instructions APPLICATION INSTRUCTIONS: apply to groin and other affected areas. Continued cholecalciferol (vitamin D3) 5,000 unit capsule 5,000 unit PO DAILY cyanocobalamin (vitamin B-12) 1,000 mcg/mL solution 1,000 mcg IM QMONTH docusate sodium 100 mg capsule 100 mg PO BID (DME) oxygen-air delivery systems Device See Rx Instructions .Route Rx Instructions: As directed dapagliflozin propanediol [Farxiga] 10 mg tablet 10 mg PO QDAY oxycodone 5 mg tablet 5 mg PO Q6H PRN (Reason: pain) ferrous sulfate 325 MG tablet 65 mg PO DAILY acetaminophen 500 mg Tablet 1,000 mg PO Q6H PRN PRN (Reason: Pain Score 1-10) Qty: 0 0RF trazodone 50 mg tablet 50 mg PO QHS sucralfate 1 gram tablet 1 g PO TID pramipexole 0.5 mg tablet 0.5 mg PO TID omeprazole 40 mg capsule,delayed release(DR/EC) 40 mg PO BID rosuvastatin [Crestor] 20 mg tablet 20 mg PO DAILY levothyroxine 50 mcg tablet 50 mcg PO DAILY Azo Cranberry 250 mg tablet,chewable 250 mg PO DAILY OXYGEN - Supplemental ([facility] INFORMATIONAL USE ONLY) Patient Comments: Patient states he uses 3L @ home. DME is [facility]. Artificial Tears(em-axmk-vrri) 1-0.2-0.2 % Drops 1 drp EACH EYE Q1H PRN (Reason: DRY EYES) Qty: 0 0RF Nasal Moisturizing 0.65 % aerosol,spray 2 spray intranasal Q2H PRN (Reason: dry nasal passages) Qty: 50 0RF Trelegy Ellipta 100-62.5-25 mcg blister with device 1 inh inhalation QDAY Qty: 60 11RF losartan 100 mg tablet 50 mg PO BID Qty: 90 3RF Changed furosemide [Lasix] 40 mg tablet 40 mg PO BID Qty: 90 3RF Discontinued gabapentin 600 mg tablet 1,200 mg PO QHS metoprolol succinate 25 mg tablet extended release 24 hr 25 mg PO QDAY sulfamethoxazole-trimethoprim 800-160 mg tablet 1 tab PO BID Referrals / Follow Up: Swati Banerjee DO [Primary Care Provider, Internal Medicine] - Within 2 Weeks Disposition Disposition (needs filled in before D/C Order can be placed): Group Home Facility
--- NOTE | 2025-04-21 14:32 | PCM.DC.SUM ---
Providers Date of Admission: 04/09/25 Primary Care Physician: Dr. Swati Banerjee DO Consultations 04/09/25 19:58 Consult: Net C Developer / Pulmonary Medicine Routine Consulting Provider: Intensivists/Pulmonary Med Reason for Consult: septic shock EMERGENT Consult: No MD Notified: Yes Date Notified: 04/09/25 Time Notified: 19:59 Method of Notification: Answering Service Consult: Onc/Wound/coal mill operator Routine Comment: 04/14/25 14:44 Consult: Inpatient Palliative Care Routine Consulting Provider: Penelope Fox Reason for Consult: Goals of care EMERGENT Consult: No MD Notified: Yes Date Notified: 04/14/25 Time Notified: 14:44 Method of Notification: Verbal 04/15/25 10:28 Consult: Infectious Disease Routine Consulting Provider: Vickey Castro Reason for Consult: E fecium Urine cx, resistant to ampicillin/MDR EMERGENT Consult: No MD Notified: Yes Date Notified: 04/15/25 Time Notified: 10:28 Method of Notification: Text 04/17/25 08:17 Consult: Net C Developer / Pulmonary Medicine Routine Consulting Provider: Intensivists/Pulmonary Med Reason for Consult: sob, resp failure, inability to cough mucus EMERGENT Consult: No MD Notified: Yes Date Notified: 04/17/25 Time Notified: 08:17 Method of Notification: Text 04/17/25 13:04 Consult: Cardiology Routine Consulting Provider: Julio Cesar De Oliveira Reason for Consult: afib with RVR,hypotension on cadizem, pause on digoxin EMERGENT Consult: No MD Notified: Yes Date Notified: 04/17/25 Time Notified: 10:05 Method of Notification: Verbal Reason For Visit: SEPTIC SHOCK Diagnosis Discharge Diagnosis (1) Septic shock: Status: Acute Code(s): A41.9 - Sepsis, unspecified organism; R65.21 - Severe sepsis with septic shock (2) Pneumonia: Status: Acute Code(s): J18.9 - Pneumonia, unspecified organism Plan Septic shock POA. now resolved due to UTI and pneumonia Present on arrival. Refer to HPI for SIRS criteria. Also compounded by DELVIS. Patient received 30 cc/kg IV fluid and still was hypotensive and started on norepinephrine. Started on hydrocortisone. Completed abx. 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 Creatinine from 04/01/2025 was 1.76 creatinine on admission was 2.26 patient started on IV fluid with subsequent monitoring of electrolytes Overall improving acute HFpEF EF 55%. continue IV furosemide TID. .08 liters positive, still with volume overload. Non-small cell lung cancer. Discussed with Dr. Marcial 04/18 and updated him on the patient's current condition. I informed him that the patient would not be able to lie flat which would be problematic at this time for the radiation as patient would require that. He and I both agreed to holding off any further radiation treatment until his medical condition warrants. Atrial fibrillation with RVR: resolved. POA. Likely reactive secondary to above. Overall his heart rate seems to be improved while is in the room is down to the low 100s. Back on metoprolol succinate Diabetes mellitus type 2: Sliding scale insulin Hypothyroidism: Continue levothyroxine Atrial fibrillation: Metoprolol held given septic shock. Not on anticoagulation Right gluteal skin burn secondary to a heating pad. This is a subsequent visit. The wound overall appears to be healing well. Continue with wound care and consult the wound nurse VTE prophylaxis with subcu heparin Disposition: to TCU hopefully today, check ambulatory oxygen. Medications at Discharge Home Medications ferrous sulfate 325 mg (65 mg iron) tablet 65 mg PO DAILY supplement 02/01/19 cholecalciferol (vitamin D3) 125 mcg (5,000 unit) capsule 5,000 unit PO DAILY cholesterol 03/30/19 peg [id number] 1 %-0.2 %-0.2 % eye drops (Artificial Tears ([id number])) 1 drp EACH EYE Q1H PRN DRY EYES #0 mL 04/26/24 sodium chloride 0.65 % nasal spray aerosol (Nasal Moisturizing) 2 spray intranasal Q2H PRN dry nasal passages #50 mL 04/26/24 acetaminophen 500 mg tablet 1,000 mg (2 x 500 mg) PO Q6H PRN PRN Pain Score 1-10 #0 tabs 05/24/24 cyanocobalamin (vitamin B-12) 1,000 mcg/mL injection solution 1,000 mcg IM QMONTH SUPPLEMENT 07/15/24 docusate sodium 100 mg capsule 100 mg PO BID constipation 07/15/24 oxygen-air delivery systems 07/15/24 fluticasone fur. 100 mcg-umeclid 62.5 mcg-vilant 25 mcg inhalat.powder (Trelegy Ellipta) 1 inh inhalation QDAY Asthma #60 ea 09/09/24 losartan 100 mg tablet 50 mg (1/2 x 100 mg) PO BID heart #90 tabs 10/25/24 dapagliflozin propanediol 10 mg tablet (Farxiga) 10 mg PO QDAY DM 12/09/24 oxycodone 5 mg tablet 5 mg PO Q6H PRN pain 03/29/25 cranberry fruit concentrate 250 mg chewable tablet (Azo Cranberry) 250 mg PO DAILY 04/09/25 levothyroxine 50 mcg tablet 50 mcg PO DAILY thyroid 04/09/25 omeprazole 40 mg capsule,delayed release 40 mg PO BID GERD 04/09/25 pramipexole 0.5 mg tablet 0.5 mg PO TID 04/09/25 rosuvastatin 20 mg tablet (Crestor) 20 mg PO DAILY cholesterol 04/09/25 sucralfate 1 gram tablet 1 g PO TID 04/09/25 trazodone 50 mg tablet 50 mg PO QHS sleep 04/09/25 OXYGEN - Supplemental ([facility] INFORMATIONAL USE ONLY) hypoxia 04/16/25 apixaban 5 mg tablet (Eliquis) 5 mg PO Q12 #0 tabs 04/21/25 digoxin 125 mcg (0.125 mg) tablet 125 mcg PO DAILY #0 tabs 04/21/25 furosemide 40 mg tablet (Lasix) 40 mg PO BID edema #90 tabs 04/21/25 metoprolol succinate 50 mg tablet,extended release 24 hr 50 mg PO DAILY #0 tabs 04/21/25 nystatin 100,000 unit/gram topical powder 1 applic topical BID #0 grams 04/21/25 Hospital Course Operations None Procedures 2-D Echocardiogram and - (radiation treatment. ) Summary of Care Provided Hospital Course: Greater than 30 minutes spent on discharge This is a 79-year-old male presents with septic shock. Septic shock secondary to UTI and pneumonia. Patient completed antibiotics. Patient was on norepinephrine but has since weaned off and was started on hydrocortisone at 1 point. Patient also had DELVIS that developed but that resolved with fluids. His course became complicated as he developed acute heart failure. He had an EF of 55%. Patient was diuresed and did well although he still does have some swelling in his lower extremities. Patient does have a history of non-small cell lung cancer and plan was for him to have radiation treatment but he was unable to do so given his clinical situation and then development of CHF. Patient did develop atrial fibrillation with RVR and will is discharged with Eliquis, digoxin and increase of his metoprolol succinate. Patient did receive radiation treatment while he was here for his lung cancer and will continue with that. Patient be discharged to the transitional care unit in stable condition. Weight / BMI Weight Weight: 121.1 kg Body Mass Index (BMI) 38.2 ABG / Lab / Microbiology Data 04/20/25 03:55 04/21/25 07:42 Laboratory: Laboratory Results - last 24 hr 04/20/25 16:41: POC Glucose 121 H 04/20/25 22:27: POC Glucose 119 H 04/21/25 06:16: POC Glucose 103 04/21/25 07:42: Sodium 141, Potassium 3.4, Chloride 103, Carbon Dioxide 27.1, Anion Gap 11, BUN 31 H, Creatinine 1.55 H, Estim Creat Clear Calc 50.42, Est GFR (MDRD) Non-Af 45 L, BUN/Creatinine Ratio 19.7, Glucose 103 H, Calcium 9.0 Microbiology: Microbiology 04/09/25 16:46 Blood Culture (Wb) - Anticubital Right Blood Culture - Final No growth in 5 days. 04/09/25 16:46 Blood Culture (Wb) - Right Forearm Blood Culture - Final No growth in 5 days. 04/10/25 09:15 Sputum, Expectorated/Coughed Gram Stain - Final 04/10/25 09:15 Sputum, Expectorated/Coughed Respiratory Culture - Final Presumptive C albicans 04/09/25 16:53 Urine, Catheterized Urine Culture - Final Enterococcus faecium 04/09/25 16:53 Urine Catheter - Savage Legionella Antigen - Final 04/09/25 16:53 Urine Catheter - [place] Streptococcus pneumoniae Antigen (M - Final 04/09/25 16:53 Mucosa - Nose SARS-CoV-2, Influenza & RSV (PCR) - Final Radiography Diagnostic Testing: Radiology Impression Venous Doppler Study 04/20/25 10:24 Interpretation Summary Deep veins of the left lower extremity are patent and compressible segmentally. There is no evidence of left lower extremity deep vein thrombosis. Valvular competence appears intact within the proximal deep venous system on the left . The left great saphenous vein was not visualized. Pulsatile flow is noted in the deep venous system on the left, which may be indicative of elevated central venous pressure (i.e. congestive heart failure, pulmonary hypertension, etc.). Clinical correlation is advised. Ordering Physician: Richar Jain Referring Physician: Swati Banerjee M.D. Performed By: Bandar Joiner RVT D/C Instructions DC O2, CPAP, BIPAP Needs Home O2 Discharge instructions: Yes Type of respiratory needs?: Oxygen Oxygen frequency: Continuous Continuous oxygen liters per minute: 3 DC home with Oxygen: Yes Home O2 MD Review: I have reviewed the oxygen testing, and the patient qualifies for home oxygen equipment and portability. The patient is mobile in the home and the community. Meaningful Use Info Meaningful Use Meaningful Use Diagnoses (Choose all that apply): CHF CHF LALY/ARB ordered at discharge?: Yes Reason LALY/ARB not ordered?: Normal EF Documented LVEF (%): 55 Discharge Plan Admission Admit Date/Time: 04/09/25 18:51 Primary Reason for Your Visit: septic shock Attending Provider: Titi Moore Primary Care Provider: Swati Banerjee Consulting Providers: Titi Moore; Penelope Fox; Ezio Kaufman; Vickey Castro; Morgan White; Federico Hagen; Cornell Ricardo; Suresh Storm; Ezio Schulte; Sue Pike; Kee Mccarthy; Clementina Iyer; Srinath Lopez; Cristy Fitzgerald; Taras Morales; Benji Richard; Ashley Wilson; Haim Bradley; Antwon Bran; Keaton Márquez; Lacie Gonzalez; Xi Finn; Sofi Du; Bria Pierce; Rory Hinkle; Leo Mcbride; Porsha Carey; Martha Moreno; Marc Wiseman; Angeles Downing; Porsha Quezada; Fermin Abbasi; Nathan Soni; John Padilla; Tamy Yates; Richar Jain; Flo Nolasco; Bart Mcmanus; Constance Rubio; Shadia Oden; Cesar Grigsby; Paxton Stanley; Alex Richard; Landon Mojica; Rudy Virgen; Chava Castaneda; Julio Cesar De Oliveira; Orestes Farr Instructions Additional Instructions / Restrictions: Consult radiation oncology to continue radiation treatment. Discharge Orders/Prescriptions Prescriptions: New digoxin 125 mcg (0.125 mg) Tablet 125 mcg PO DAILY Qty: 0 0RF Eliquis 5 mg Tablet 5 mg PO Q12 Qty: 0 0RF metoprolol succinate 50 mg Tablet Extended Release 24 Hr 50 mg PO DAILY Qty: 0 0RF nystatin 100,000 unit/gram Powder 1 applic topical BID Qty: 0 0RF Protocol: *Topical Application Instructions APPLICATION INSTRUCTIONS: apply to groin and other affected areas. Continued cholecalciferol (vitamin D3) 5,000 unit capsule 5,000 unit PO DAILY cyanocobalamin (vitamin B-12) 1,000 mcg/mL solution 1,000 mcg IM QMONTH docusate sodium 100 mg capsule 100 mg PO BID (DME) oxygen-air delivery systems Device See Rx Instructions .Route Rx Instructions: As directed dapagliflozin propanediol [Farxiga] 10 mg tablet 10 mg PO QDAY oxycodone 5 mg tablet 5 mg PO Q6H PRN (Reason: pain) ferrous sulfate 325 MG tablet 65 mg PO DAILY acetaminophen 500 mg Tablet 1,000 mg PO Q6H PRN PRN (Reason: Pain Score 1-10) Qty: 0 0RF trazodone 50 mg tablet 50 mg PO QHS sucralfate 1 gram tablet 1 g PO TID pramipexole 0.5 mg tablet 0.5 mg PO TID omeprazole 40 mg capsule,delayed release(DR/EC) 40 mg PO BID rosuvastatin [Crestor] 20 mg tablet 20 mg PO DAILY levothyroxine 50 mcg tablet 50 mcg PO DAILY Azo Cranberry 250 mg tablet,chewable 250 mg PO DAILY OXYGEN - Supplemental ([facility] INFORMATIONAL USE ONLY) Patient Comments: Patient states he uses 3L @ home. DME is [facility]. Artificial Tears([id number]-[id number]-[id number]) 1-0.2-0.2 % Drops 1 drp EACH EYE Q1H PRN (Reason: DRY EYES) Qty: 0 0RF Nasal Moisturizing 0.65 % aerosol,spray 2 spray intranasal Q2H PRN (Reason: dry nasal passages) Qty: 50 0RF Trelegy Ellipta 100-62.5-25 mcg blister with device 1 inh inhalation QDAY Qty: 60 11RF losartan 100 mg tablet 50 mg PO BID Qty: 90 3RF Changed furosemide [Lasix] 40 mg tablet 40 mg PO BID Qty: 90 3RF Discontinued gabapentin 600 mg tablet 1,200 mg PO QHS metoprolol succinate 25 mg tablet extended release 24 hr 25 mg PO QDAY sulfamethoxazole-trimethoprim 800-160 mg tablet 1 tab PO BID Referrals / Follow Up: Swati Banerjee DO [Primary Care Provider, Internal Medicine] - Within 2 Weeks Disposition Disposition (needs filled in before D/C Order can be placed): [facility] Facility Charges/Coding Visit Charges Inpatient E&M: 85116 Disch Hosp >30min
--- NOTE | 2025-04-21 15:06 | PHA.DC_ITS ---
Pharmacy [place] Med Reconciliation
--- NOTE | 2025-04-21 15:06 | PHA.DC.MR.R ---
Pharmacy [place] Med Reconciliation Pharmacy Service has performed discharge medication reconciliation for this patient. The patient's discharge medication list was reviewed for discrepancies and discrepancies were resolved. Medications at Discharge Home Medications ferrous sulfate 325 mg (65 mg iron) tablet 65 mg PO DAILY supplement 02/01/19 cholecalciferol (vitamin D3) 125 mcg (5,000 unit) capsule 5,000 unit PO DAILY cholesterol 03/30/19 peg [id number] 1 %-0.2 %-0.2 % eye drops (Artificial Tears ([id number])) 1 drp EACH EYE Q1H PRN DRY EYES #0 mL 04/26/24 sodium chloride 0.65 % nasal spray aerosol (Nasal Moisturizing) 2 spray intranasal Q2H PRN dry nasal passages #50 mL 04/26/24 acetaminophen 500 mg tablet 1,000 mg (2 x 500 mg) PO Q6H PRN PRN Pain Score 1-10 #0 tabs 05/24/24 cyanocobalamin (vitamin B-12) 1,000 mcg/mL injection solution 1,000 mcg IM QMONTH SUPPLEMENT 07/15/24 docusate sodium 100 mg capsule 100 mg PO BID constipation 07/15/24 oxygen-air delivery systems 07/15/24 fluticasone fur. 100 mcg-umeclid 62.5 mcg-vilant 25 mcg inhalat.powder (Trelegy Ellipta) 1 inh inhalation QDAY Asthma #60 ea 09/09/24 losartan 100 mg tablet 50 mg (1/2 x 100 mg) PO BID heart #90 tabs 10/25/24 dapagliflozin propanediol 10 mg tablet (Farxiga) 10 mg PO QDAY DM 12/09/24 oxycodone 5 mg tablet 5 mg PO Q6H PRN pain 03/29/25 cranberry fruit concentrate 250 mg chewable tablet (Azo Cranberry) 250 mg PO DAILY 04/09/25 levothyroxine 50 mcg tablet 50 mcg PO DAILY thyroid 04/09/25 omeprazole 40 mg capsule,delayed release 40 mg PO BID GERD 04/09/25 pramipexole 0.5 mg tablet 0.5 mg PO TID 04/09/25 rosuvastatin 20 mg tablet (Crestor) 20 mg PO DAILY cholesterol 04/09/25 sucralfate 1 gram tablet 1 g PO TID 04/09/25 trazodone 50 mg tablet 50 mg PO QHS sleep 04/09/25 OXYGEN - Supplemental ([facility] INFORMATIONAL USE ONLY) hypoxia 04/16/25 apixaban 5 mg tablet (Eliquis) 5 mg PO Q12 #0 tabs 04/21/25 digoxin 125 mcg (0.125 mg) tablet 125 mcg PO DAILY #0 tabs 04/21/25 furosemide 40 mg tablet (Lasix) 40 mg PO BID edema #90 tabs 04/21/25 metoprolol succinate 50 mg tablet,extended release 24 hr 50 mg PO DAILY #0 tabs 04/21/25 nystatin 100,000 unit/gram topical powder 1 applic topical BID #0 grams 04/21/25
--- NOTE | 2025-04-21 15:08 | CASEMGMT ---
Social Work Per physician, pt is ready for discharge today. Pao in TCU notified and pt can be accepted today. Discharge orders faxed to TCU. MARCO ANTONIO met with pt's dgt Carmen outside pt room as pt was getting care and informed her that pt will be discharged today. Carmen to notify pt and pt's . Nursing updated. Disposition: TCU, skilled level of care JAGUAR Salguero
--- NOTE | 2025-04-21 16:00 | NURSING ---
Called in report to FLORIDA Rosado from [facility] at 16:00.
== END 2025-04-21 17:17 | disposition skilled nursing facility (03) | DRG 871 ==
LOC: ED 18:38 → ICU 19:00 → PCU 04-15 07:05 → ICU 04-18 07:52
PROVIDERS: Family Medicine; Internal Medicine; Emergency Provider Emergency Medicine; PCP Internal Medicine
DX: A41.9 Sepsis, unspecified organism (principal); J18.9 Pneumonia, unspecified organism; R65.21 Severe sepsis with septic shock; I50.31 Acute diastolic (congestive) heart failure; G93.41 Metabolic encephalopathy; C77.9 Secondary and unspecified malignant neoplasm of lymph node, unspecified; I24.89 Other forms of acute ischemic heart disease; I13.0 Hypertensive heart and chronic kidney disease with heart failure and stage 1 through stage 4 chronic kidney disease, or unspecified chronic kidney disease; C34.12 Malignant neoplasm of upper lobe, left bronchus or lung; D84.9 Immunodeficiency, unspecified; I48.20 Chronic atrial fibrillation, unspecified; J96.11 Chronic respiratory failure with hypoxia; N17.9 Acute kidney failure, unspecified; N39.0 Urinary tract infection, site not specified; D63.8 Anemia in other chronic diseases classified elsewhere; Z66 Do not resuscitate; E11.22 Type 2 diabetes mellitus with diabetic chronic kidney disease; J43.9 Emphysema, unspecified; F02.80 Dementia in other diseases classified elsewhere, unspecified severity, without behavioral disturbance, psychotic disturbance, mood disturbance, and anxiety; G20.C Parkinsonism, unspecified; N18.32 Chronic kidney disease, stage 3b; E03.9 Hypothyroidism, unspecified; E66.812 Obesity, class 2; I25.10 Atherosclerotic heart disease of native coronary artery without angina pectoris; M19.90 Unspecified osteoarthritis, unspecified site; E11.42 Type 2 diabetes mellitus with diabetic polyneuropathy; I25.2 Old myocardial infarction; G47.33 Obstructive sleep apnea (adult) (pediatric); B95.2 Enterococcus as the cause of diseases classified elsewhere; Z87.891 Personal history of nicotine dependence; Z95.5 Presence of coronary angioplasty implant and graft; Z68.39 Body mass index [BMI] 39.0-39.9, adult; Z86.16 Personal history of COVID-19
CPT/HCPCS: 36415; 36591; 36600; 71045; 71046; 77280; 77412; 80048; 80053; 80202; 81001; 82550; 82803; 82962; 83605; 83735; 83880; 84100; 84484; 85025; 85610; 85730; 87040; 87070; 87077; 87086; 87088; 87186; 87205; 87449; 87631; 93005; 93308; 93971; 94002; 94003; 94640; 94667; 94668; 94762; 97110; 97116; 97162; 97166; 97530; 97535; 97802; 97803; 99285; P9047; Q9957; A4216; C8924; J0744; J1938

== ENCOUNTER 2025-04-21 17:48 | Inpatient (IN) | payer MEDICARE, OTHER, SELFPAY ==
[2025-04-21 17:48] VITALS: BMI 38.5
[2025-04-21 18:01] VITALS: BP 111/50; PULSE 78; RESP 18; TEMP 36.1; O2SAT 96; BMI 38.5
[2025-04-21 20:30] VITALS: PULSE 67; RESP 12; RESP 28; O2SAT 98
--- NOTE | 2025-04-21 20:44 | PCM.HP.STD ---
HPI - General General Date of Admission: 04/21/25 Date of Service: 04/22/25 Chief Complaint: Here for rehabilitation. HPI Narrative JV DURHAM, is a 79 M who presents with followin04/09/2025 [facility] ED Fever. Dyspnea, fever, feet swelling, urine foul. Recent hospitalization for urinary tract infection, on Bactrim. Chronic oxygen 4 liters nasal cannula, 88% pulsox, placed on NRB. Productive cough. IV fluids given, Albuterol aerosol given, WBC 31.7, Troponin elevated. Urinalysis c/w urinary tract infection, Chest X-ray showed right middle lobe infiltrate. Zosyn IV, Cipro for healthcare associated pneumonia, urinary tract infection, improved after IV fluids. 04/09/2025 Admit [facility] Zosyn, Vancomycin, IV fluid bolus, Norepinephrine for septic shock, pneumonia, urinary tract infection. IV fluids for acute kidney injury. Cycle troponin for elevated troponin. 04/10/2025 Feeling much better, still on pressors. Hydrocortisone ordered for stress steroids. Acute kidney injury improved, Creatinine 2.06. 04/11/2025 Zosyn, Vancomycin, IV fluids for septic shock, pneumonia, urinary tract infection. Urine culture growing enterococcus faecium. 04/11/2025 Echo LVEF 55%. Moderately dilated RV with moderate to severe RV systolic dysfunction. RVSP 74mm HG. Mild aortic valve stenosis. 04/12/2025 More awake, interactive. Off pressors, WBC elevated. Continue antibiotics for pneumonia, enterococcus urinary tract infection. 04/13/2025 Productive cough, WBC improving. Sputum growing C. Albicans, suspect colonization. Creatinine improved to 1.33 with IV fluids. 04/14/2025 Shortness of breath at rest, patient requests discharge home. WBC elevated, repeat CXR for productive cough. Palliative care for lung cancer status post surgery. 04/15/2025 Fever 102.8, Bilateral legs swollen, red. WBC down. ID recommends Vancomycin, then Linezolid for Enterococcus UTI. 04/16/2025 Blood cultures negative for 5 days. Doing well, antibiotics per ID. 04/17/2025 Hypotensive, cardizem drip stopped, Digoxin load ordered for afib with RVR. Digoxin stopped 2/2 bradycardia. Acute respiratory failure with hypoxia, BiPAP applied, then weaned off. Antibiotics thru 04/19/2025. Bun/Creatinine 26/1.46, increased 2/2 diuretic. 04/18/2025 Feeling well, unable to lie flat 2/2 shortness of breath. Vancomycin IV thru 04/19/2025. Metoprolol succinate for atrial fibrillation with RVR. Furosemide IV for acute HFpEF. 04/19/2025 Feeling well, breathing well. Finish Vancomycin IV for septic shock, pneumonia, urinary tract infection. Acute kidney injury improving. Increase Furosemide IV TID for acute HFpEF. 04/20/2025 Breathing well. Furosemide IV TID acute HFpEF, 1.2 liters positive. 04/21/2025 Admit to TCU with debility, here for rehabilitation, strengthening, prior to discharge home with . [facility] Medical History (Updated 04/21/25 @ 21:[address] 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 Regional lymph node metastasis present Metastasis to liver Pain Cancer of lower lobe of right lung Nodule of parotid gland History of home oxygen therapy Cardiology follow-up encounter Gastric ulcer History of lung cancer Adrenal mass History of Parkinson's disease History of atrial fibrillation Hx of cancer of lung Pulmonary hypertension Emphysema, unspecified History of echocardiogram History of stress test Hypertension History of atrial fibrillation Hx of fracture of ankle COVID Chronic combined systolic and diastolic CHF (congestive heart failure) Severe pulmonary arterial systolic hypertension Wears glasses Uses wheelchair Walker as ambulation aid Ambulates with cane Arthritis Anemia Migraine headache Injury of head and neck Parkinson's disease Gastric reflux Former smoker BiPAP (biphasic positive airway pressure) dependence COPD (chronic obstructive pulmonary disease) On home oxygen therapy History of pain when walking History of edema Amputated great toe of left foot Amputation of one or more toes Chronic ulcer of left foot with fat layer exposed Hammer toe of left foot Toe osteomyelitis Right ventricular dilation, secondary Right ventricular systolic dysfunction Respiratory failure with hypoxia Diverticular disease Polyp of colon, adenomatous Chronic gastritis Multiple premature ventricular complexes Longstanding persistent atrial fibrillation Hyperlipidemia Acute kidney injury NSTEMI (non-ST elevated myocardial infarction) (12/02/19) Sepsis Gastric AVM Adenocarcinoma of lung, stage 1 GI bleed Iron deficiency anemia due to chronic blood loss Atherosclerosis of coronary artery of [place] heart without angina pectoris Cancer of upper lobe of left lung 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 Benign essential hypertension HEBER (obstructive sleep apnea) Dementia Parkinsons Essential tremor GERD (gastroesophageal reflux disease) Alcohol dependence Home Medications ?Medication ?Instructions ?Recorded ?Last Taken ?Type ferrous sulfate 325 mg (65 mg 65 mg PO DAILY supplement 02/01/19 04/09/25 History iron) tablet cholecalciferol (vitamin D3) 125 5,000 unit PO DAILY cholesterol 03/30/19 04/09/25 History mcg (5,000 unit) capsule peg [id number] 1 1 drp EACH EYE Q1H PRN DRY EYES #0 04/26/24 04/25/24 10:10 Rx %-0.2 %-0.2 % eye drops mL (Artificial Tears ([id number])) sodium chloride 0.65 % nasal spray 2 spray intranasal Q2H PRN dry 04/26/24 04/26/24 09:10 Rx aerosol (Nasal Moisturizing) nasal passages #50 mL acetaminophen 500 mg tablet 1,000 mg (2 x 500 mg) PO Q6H PRN 05/24/24 Unknown Rx PRN Pain Score 1-10 #0 tabs cyanocobalamin (vitamin B-12) 1,000 mcg IM QMONTH SUPPLEMENT 07/15/24 07/26/24 History 1,000 mcg/mL injection solution docusate sodium 100 mg capsule 100 mg PO BID constipation 07/15/24 04/09/25 History oxygen-air delivery systems 07/15/24 Unknown History fluticasone fur. 100 mcg-umeclid 1 inh inhalation QDAY Asthma #60 ea 09/09/24 Unknown Rx 62.5 mcg-vilant 25 mcg inhalat.powder (Trelegy Ellipta) losartan 100 mg tablet 50 mg (1/2 x 100 mg) PO BID heart 10/25/24 04/09/25 Rx #90 tabs dapagliflozin propanediol 10 mg 10 mg PO QDAY DM 12/09/24 04/09/25 History tablet (Farxiga) oxycodone 5 mg tablet 5 mg PO Q6H PRN pain 03/29/25 Unknown History cranberry fruit concentrate 250 mg 250 mg PO DAILY UTI prevention 04/09/25 Unknown History chewable tablet (Azo Cranberry) levothyroxine 50 mcg tablet 50 mcg PO DAILY thyroid 04/09/25 04/09/25 History omeprazole 40 mg capsule,delayed 40 mg PO BID GERD 04/09/25 04/09/25 History release pramipexole 0.5 mg tablet 0.5 mg PO TID RLS 04/09/25 04/09/25 History rosuvastatin 20 mg tablet (Crestor) 20 mg PO DAILY cholesterol 04/09/25 04/08/25 History sucralfate 1 gram tablet 1 g PO TID stomach 04/09/25 04/09/25 History trazodone 50 mg tablet 50 mg PO QHS sleep 04/09/25 04/08/25 History OXYGEN - Supplemental ([facility] hypoxia 04/16/25 Unknown History INFORMATIONAL USE ONLY) apixaban 5 mg tablet (Eliquis) 5 mg PO Q12 afib #0 tabs 04/21/25 Unknown Rx digoxin 125 mcg (0.125 mg) tablet 125 mcg PO DAILY afib #0 tabs 04/21/25 Unknown Rx furosemide 40 mg tablet (Lasix) 40 mg PO BID edema #90 tabs 04/21/25 04/09/25 Rx metoprolol succinate 50 mg 50 mg PO DAILY afib #0 tabs 04/21/25 Unknown Rx tablet,extended release 24 hr nystatin 100,000 unit/gram topical 1 applic topical BID yeast groin 04/21/25 Unknown Rx powder #0 grams Allergy/AdvReac Type Severity Reaction Status Date / Time No Known Allergies Allergy Verified 03/30/25 16:00 Family History Sister Alcoholism Cancer Mother Arthritis Father Arthritis Brother Cancer Surgical History History of transurethral resection of prostate Hx of toe surgery SURGICAL REMOVAL LEFT GREAT TOE History of right and left heart catheterization (12/04/16) History of colonoscopy (03/22/20) History of esophagogastroduodenoscopy (03/22/20) History of left heart catheterization (2016) History of coronary artery stent placement (12/23/06) Status post insertion of iliac artery stent (08/04/12) Status post surgical removal of neoplasm of skin History of tonsillectomy and adenoidectomy History of hammer toe correction History of open reduction and internal fixation (ORIF) procedure History of open reduction and internal fixation (ORIF) procedure History of lobectomy of lung History of cardioversion (12/2016) H/O coronary artery bypass surgery (02/14/06) Social History household members: spouse Smoking Status: Former smoker quit date: 11/14/93 how long ago did patient quit smokin years ago second hand exposure: No alcohol intake: current alcohol intake frequency: holidays/special occasions only Alcohol type: wine substance use type: does not use caffeine: Yes Type: coffee Number of servings: 1 what type of physical activity do you participate in: none frequency: does not exercise seatbelt use: always ROS Constitutional Constitutional: Reports weakness; Denies chills, fever(s) or weight gain ENT HEENT: Denies headache(s), nasal congestion or nasal discharge Cardiovascular Cardiovascular: Denies chest pain or palpitations Respiratory/Chest Respiratory/Chest: Denies cough, excessive phlegm production or shortness of breath with exertion Gastrointestinal Gastrointestinal: Denies abdominal pain, nausea or vomiting Genitourinary Genitourinary: Denies dysuria Musculoskeletal Musculoskeletal: Denies joint pain or joint swelling Integumentary Integumentary: Denies rash or wounds Neurologic Neurologic: Denies focal weakness, numbness or tingling Psychiatric Psychiatric: Denies anxiety, auditory hallucinations, depression, homicidal ideation or suicidal ideation Vital Signs Vital Signs Vital Signs: 04/21/25 18:01 04/21/25 18:01 04/21/25 20:30 Temperature 97 F L Temperature Source Temporal Pulse Rate 78 67 Pulse Rhythm Irregular Pulse Strength Normal (2+) Respiratory Rate 18 28 H Respiratory Effort Normal Non-Labored Respiratory Depth Normal Respiratory Pattern Normal Blood Pressure 111/50 L Blood Pressure Mean 70 Blood Pressure Source Monitor Blood Pressure Position Semi-Fowlers Blood Pressure Location Right Arm Pulse Ox 96 98 Oxygen Delivery Method Nasal Cannula Nasal Cannula Nasal Cannula Oxygen Flow Rate (L/min) 3.5 3.5 4 Fraction of Inspired Oxygen (FIO2) 30 Weight Weight: 122.045 kg Body Mass Index (BMI) 38.5 Physical Exam Const alert General Appearance: cooperative HEENT normocephalic Eyes PERRL and EOMs intact bilaterally Neck supple, no JVD and no carotid bruits Chest Chest Narrative: Right chest port. Resp normal respiratory effort, normal air movement and clear to auscultation bilaterally Cardio regular rate and regular rhythm GI normal to inspection, nondistended, normoactive bowel sounds, non-tender and non-distended Extremity normal capillary refill General Extremity: Negative for edema Skin no rashes or lesions noted General Skin Exam: no breakdown Psych affect normal Appearance: appropriate Results Lab / Micro Data 04/22/25 05:31 04/22/25 05:31 Assessment & Plan Assessment/Plan (1) Debility: (2) Septic shock: (3) Pneumonia: (4) UTI (urinary tract infection): (5) Acute respiratory failure with hypoxia: (6) Acute heart failure with preserved ejection fraction (HFpEF): (7) DELVIS (acute kidney injury): (8) Atrial fibrillation with RVR: (9) COPD (chronic obstructive pulmonary disease): QUALIFIERS: COPD type: unspecified COPD Qualified Code(s): J44.9 - Chronic obstructive pulmonary disease, unspecified (10) Essential (primary) hypertension: (11) Hyperlipidemia: QUALIFIERS: Hyperlipidemia type: unspecified Qualified Code(s): E78.5 - Hyperlipidemia, unspecified (12) Vitamin D deficiency: (13) Iron deficiency anemia: (14) Neuropathic pain: (15) Hypothyroidism: (16) Insomnia: (17) Macular degeneration: (18) Parkinsons: QUALIFIERS: Dyskinesia presence: without dyskinesia Fluctuating manifestations: unspecified whether manifestations fluctuate Qualified Code(s): G20.A1 - Parkinson's disease without dyskinesia, without mention of fluctuations PLAN: Plan 79 year old male with below past medical history hospitalized for septic shock 2/2 pneumonia, urinary tract infection, complicated by acute kidney injury, acute respiratory failure with hypoxia, acute on chronic HFpEF, atrial fibrillation with rvr, admitted to TCU with debility, here for rehabilitation, strengthening, prior to discharge home with . Debility - PT/OT. Pain - Tylenol 1000mg q6 prn, Oxycodone 5mg q6 prn. Bowel - senna/colace 1 tablet bid, Magnesium citrate 300mL daily prn. Adult immunization - Administer pneumonia vaccine, covid vaccine, flu vaccine. DVT prophylaxis - Eliquis. Atrial fibrillation - Metoprolol succinate 50mg daily, Digoxin 125mcg daily, Eliquis 5mg bid. Hyperlipidemia - Atorvastatin 40mg qhs. Vitamin D deficiency - D3 125mcg daily. Vitamin B12 deficiency - B12 1000mcg im qmonth. Chronic HFpEF - Metoprolol succinate 50mg daily, Losartan 50mg daily, Jardiance 25mg daily, Furosemide 40mg bid. Iron deficiency anemia - Ferrous sulfate 325mg daily. COPD - Fluticasone/Salmeterol 232-14 1 puff bid, Incruse 1 puff daily. Hypothyroidism - Levothyroxine 50mcg daily. Tinea Cruris - Nystatin powder topical bid, Fluconazole 200mg daily x 14 days. GERD - Pantoprazole 40mg bid, Sucralfate 1gm tid. Dry eyes - Artificial tears 1gtt ou q1h prn. Parkinson Disease - Mirapex 0.5mg tid. Dry nose - Sodium chloride 2 sprays nasal q2h prn. The following psychotropic medication was present on admission: Trazodone 50mg qhs. Psychotropic medication therapy is indicated for a diagnosis of: Insomnia. Based on my clinical evaluation, continuation of the medication is necessary at this time. Gradual dose reduction plan (select one): ____ GDR will be attempted. Will monitor patient symptoms and behaviors in response to GDR. __x__ GRD contraindicated. 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
[2025-04-21] MEDS: Fluticasone/Salmeterol 232-14 Inhaler 1 PUFF INHALATION (21:03)
[2025-04-21] MEDS: Senna/Docusate Sodium 1 Tablet PO (21:06)
[2025-04-21] MEDS: APIXABAN 5 MG TABLET PO (21:06)
[2025-04-21 21:14] VITALS: BP 121/53; PULSE 72
[2025-04-22] VITALS (9 sets, daily range): BP systolic 109–121; BP diastolic 53; PULSE 54–82; RESP 12–30; TEMP 36.5; O2SAT 92–100
[2025-04-22 05:57] LABS: Hematocrit 31.5 % (40-54); Hemoglobin 9.5 g/dL (13.0-16.5); Immature Granulocytes Count 0.250 X10^3/uL (0.0-0.0); Mean Corp Hgb Conc 30.2 g/dL (32-36); Mean Corpuscular Volume 86.1 fL (80-94); Mean Platelet Vol. 10.8 fl (6.2-12.0); NRBC Flagged by Analyzer 0 % (0-5); POSITIVE DIFFERENTIAL YES; Platelet Count 228 K/mm3 (150-450); RBC Distribution Width CV 17.7 % (11.6-14.6); RBC Distribution Width SD 54.6 fl (35.1-43.9); Red Blood Count 3.66 M/mm3 (4.6-6.2); White Blood Count 22.1 K/mm3 (4.4-11.0)
[2025-04-22] MEDS: 0.9% Saline Lock 10 ML Syringe IV (06:08)
[2025-04-22 06:16] LABS: Anion Gap 9 (5-15); BUN 32 mg/dL (4-19); BUN/Creat Ratio 20.1 RATIO (10-20); Calcium,Total 8.9 mg/dL (7.6-11.0); Carbon Dioxide 30.1 mmol/L (21.0-32.0); Chloride 101 mmol/L (98-108); Estimated Creatinine Clearance 48.74 ml/min (50-250); Glucose 98 mg/dL (70-99); Potassium 3.5 mmol/L (3.3-5.1)
--- NOTE | 2025-04-22 08:15 | PCM.PN.DRR ---
Documented by User: Rula Reyes 04/22/25 09:24 TCU RX Drug Regimen Review Subjective/Objective Subjective/Objective Subjective: TCU Admission. 79 YOM presented to the ER with a fever. Hospitalized for septic shock 2/2 pneumonia, urinary tract infection, complicated by acute kidney injury, acute respiratory failure with hypoxia, acute on chronic HFpEF, atrial fibrillation with rvr. Admitted to TCU with debility for strengthening and rehabilitation. Objective: Allergies No Known Allergies Allergy (Verified 03/30/25 16:00) Current Medications Generic Name Dose Route Start Last Admin Trade Name Freq PRN Reason Stop Dose Admin Acetaminophen 1,000 mg 04/21/25 17:43 Acetaminophen 500 Mg Tablet PO Q6H PRN PRN Pain Score 1-10 Apixaban 5 mg 04/21/25 22:00 04/21/25 21:06 Apixaban 5 Mg Tablet PO 5 mg Q12 NATALIE Administration Atorvastatin Calcium 40 mg 04/21/25 22:00 04/21/25 21:05 Atorvastatin Calcium 40 Mg Tablet PO 40 mg QHS NATALIE Administration Cholecalciferol 125 mcg 04/22/25 10:00 Cholecalciferol (Vit D3) 125 Mcg Capsule (5,000 Units) PO DAILY [facility] Cyanocobalamin 1,000 mcg 04/21/25 17:45 Cyanocobalamin (B12) 1,000 Mcg/Ml Vial IM QMONTH [facility] Digoxin 125 mcg 04/22/25 10:00 Digoxin 125 Mcg Tablet PO DAILY [facility] Empagliflozin 25 mg 04/22/25 10:00 Empagliflozin 25 Mg Tablet PO DAILY [facility] Ferrous Sulfate 325 mg 04/22/25 12:00 Ferrous Sulfate 325 Mg Tablet PO DAILY@1200 [facility] Fluconazole 200 mg 04/22/25 10:00 Fluconazole 100 Mg Tablet PO 05/06/25 10:01 DAILY [facility] Furosemide 40 mg 04/22/25 10:00 Furosemide 40 Mg Tablet PO BID@1000,1800 [facility] Protocol Glycerin/Hypromellose/Polyethylene 1 drp 04/21/25 17:43 Glycerin/Hypromellose/[id number] 15 Ml Bottle EACH EYE Q1H PRN DRY EYES Levothyroxine Sodium 50 mcg 04/22/25 06:00 04/22/25 06:08 Levothyroxine 50 Mcg Tablet PO 50 mcg DAILY@0600 [facility] Administration Losartan Potassium 50 mg 04/21/25 22:00 04/21/25 21:13 Losartan Potassium 50 Mg Tablet PO 50 mg BID NATALIE Administration Protocol Magnesium Citrate 300 ml 04/21/25 17:48 Magnesium Citrate 300 Ml PO X1 PRN Constipation Metoprolol Succinate 50 mg 04/22/25 10:00 Metoprolol(Xl)Succ 50 Mg Tablet PO DAILY [facility] Protocol Nystatin 1 applic 04/21/25 22:00 04/21/25 21:03 Nystatin Powder 15gm Bottle TOPICAL 1 applic BID NATALIE Administration Protocol Oxycodone HCl 5 mg 04/21/25 17:43 04/22/25 06:08 Oxycodone 5 Mg Tablet PO 5 mg Q6H PRN Administration Pain Score 1-10 Pantoprazole Sodium 40 mg 04/21/25 22:00 04/21/25 21:06 Pantoprazole Sodium 40 Mg Tablet PO 40 mg BID NATALIE Administration Pramipexole Dihydrochloride 0.5 mg 04/21/25 22:00 04/22/25 06:08 Pramipexole Di-Hcl 0.5 Mg Tablet PO 0.5 mg TID NATALIE Administration Fluticasone/Salmeterol 1 puff 04/21/25 22:00 04/21/25 21:03 Fluticasone/Salmeterol 232-14 Inhaler INHALATION 1 puff Q12 NATALIE Administration Senna/Docusate Sodium 1 tablet 04/21/25 22:00 04/21/25 21:06 Senna/Docusate Sodium 1 Tablet PO 1 tablet BID NATALIE Administration Sodium Chloride 2 spray 04/21/25 17:43 Sodium Chloride 0.65% 1 [place] Gratiot.Btl NASAL Q2H PRN dry nasal passages Sodium Chloride 10 - 40 ml 04/21/25 18:58 04/22/25 06:08 0.9% Saline Lock 10 Ml Syringe IV 10 ml UD PRN Administration SALINE FLUSH Sucralfate 1 gm 04/22/25 07:00 04/22/25 06:08 Sucralfate 1 Gm Tablet PO 1 gm TID@0700,1100,1600 NATALIE Administration Trazodone HCl 50 mg 04/21/25 22:00 04/21/25 21:13 Trazodone 50 Mg Tablet PO 50 mg QHS NATALIE Administration Tuberculin PPD 0.1 ml 04/22/25 10:00 Tuberculin,Purif.Prot.Deriv. 50 Tu/Ml Vial ID 04/22/25 10:01 X1 ONE Tuberculin PPD 0.1 ml 04/29/25 10:00 Tuberculin,Purif.Prot.Deriv. 50 Tu/Ml Vial ID 04/29/25 10:01 X1 ONE Umeclidinium Teller 1 puff 04/22/25 10:00 Umeclidinium Teller Inhaler INHALATION DAILY [facility] Problem List Macular degeneration (Acute) Hypothyroidism (Acute) Acute heart failure with preserved ejection fraction (HFpEF) (Acute) Acute respiratory failure with hypoxia (Acute) UTI (urinary tract infection) (Acute) DELVIS (acute kidney injury) (Acute) Atrial fibrillation with RVR (Acute) Pneumonia (Acute) Septic shock (Acute) Essential (primary) hypertension (Acute) Neuropathic pain (Acute) Insomnia (Acute) Vitamin D deficiency (Acute) Iron deficiency anemia (Acute) Debility (Acute) COPD (chronic obstructive pulmonary disease) (Chronic) Parkinsons (Chronic) Hyperlipidemia (Chronic) Vital Signs Temp Pulse Resp BP Pulse Ox O2 Del Method O2 Flow Rate 97 F L 55 L 21 H 121/53 H 98 Nasal Cannula 4 04/21/25 18:01 04/22/25 04:31 04/22/25 04:31 04/21/25 21:14 04/22/25 04:31 04/21/25 20:30 04/21/25 20:30 FiO2 30 04/22/25 04:31 Oxygen Flow Rate (L/min) 4 Oxygen Delivery Method Nasal Cannula Weight: 122.045 kg Body Mass Index (BMI) 38.5 Sodium 140 mmol/L (133-145) 04/22/25 05:31 Potassium 3.5 mmol/L (3.3-5.1) 04/22/25 05:31 Chloride 101 mmol/L (98-108) 04/22/25 05:31 Carbon Dioxide 30.1 mmol/L (21.0-32.0) 04/22/25 05:31 Anion Gap 9 (5-15) 04/22/25 05:31 BUN 32 mg/dL (4-19) H 04/22/25 05:31 Creatinine 1.61 mg/dL (0.70-1.20) H 04/22/25 05:31 Est GFR (MDRD) Non-Af 43 (>60) L 04/22/25 05:31 BUN/Creatinine Ratio 20.1 RATIO (10-20) H 04/22/25 05:31 Glucose 98 mg/dL (70-99) 04/22/25 05:31 Assessment/Plan: 1. Pain: acetaminophen 1000mg PO Q6H PRN pain (1-10) and oxycodone 5mg PO pain (1-10). Resident has not used any acetaminophen PRN but has had 2 doses of oxycodone for pain scores of 9 in the back/shoulder. Monitor for constipation (last BM:04/21/28), respiratory depression (current RR range:18-28), falls and sedation/delirium (Beers). Reviewed pain scores before and after administration. Monitor pain scores before/after prn administration for response, PRN pain medication usage, symptoms of pain/resident distress and ability to participate in therapy. 2. Bowel: senna/docusate 1T PO BID and magnesium citrate 300ML PO daily PRN constipation. Resident has not used any prn doses at this time. Last document bowel movement:04/21/25. Monitor for usage of prn medications, abdominal pain, frequency of bowel movements, diarrhea. Recommend holding bowel regimen if resident develops diarrhea. 3. Atrial fibrillation: metoprolol succinate 50mg PO daily, digoxin 125mcg PO daily and apixaban 5mg PO BID. Monitor renal function (Scr =1.61mg/dL). Monitor for symptoms of toxicity (nausea, vomiting, visual disturbance, mental status change, arrhythmia); check serum digoxin level if symptoms (last level 11/2019).? Consider EKG if symptoms suggest toxicity. ?Consider serum digoxin level (drawn at least 6-8 hours after a dose) 5-7 days after dose increases, with changing renal function or in the setting of a potential drug interaction.? Beers list drug for geriatric patients (not first line)- avoid doses >0.125 mg/day unless benefit outweighs risk. Monitor renal function ( Scr =1.61mg/dL) and body weight (Wt =122 kg). Current dose appropriate for age, weight and Scr. Combination of age (> 80 years), wt (< 60 kg) and Scr (> 1.5 mg/dL) may warrant dose reduction. Monitor for symptoms of bleeding (including melena, hemoptysis, hematuria, epistaxis, new-onset headache), hemoglobin (last Hgb =9.5g/dL). Monitor for bradyarrhythmia, fatigue, sleep disturbance and for new/worsening heart failure symptoms. For diabetic patients, monitor glucose. BP (111/50-121/53), HR (54-78). 4. Chronic HFpEF: metoprolol succinate 50mg PO daily, losartan 50mg PO daily, empagliflozin 25mg PO daily and furosemide 40mg PO BID. Last echo EF:04/10/25 55%. BP range since admission = [111/50-121/53], HR range since admission [54-78]. Regimen appears optimized at this time. Monitor volume status (weight, lower extremity edema, JVD, lung examination) and for symptoms of exacerbation (SOB, dyspnea on exertion, orthopnea, edema, fatigue, wet cough or frothy/pink mucous). Monitor serum potassium (last K = 3.5mmol/L), magnesium (last Mg= 2.1mg/dL), calcium (last Ca =8.9mg/dL) and sodium (last Na =140mmol/L).?Monitor volume status, symptoms of orthostasis, and renal function (SCr =1.61mg/dL). Monitor genitourinary fungal infection and urinary tract infection. For diabetic patients, monitor blood glucose and symptoms of hypo/hyperglycemia. Monitor for bradyarrhythmia, fatigue, sleep disturbance and for new/worsening heart failure symptoms. 5. Hyperlipidemia: atorvastatin 40mg PO QHS. Last FLP = 04/23/24. LDL at goal at last check for patient. Please continue to monitor LFTs (last 04/10/25 WNL) and muscle pain. Monitor for headache, nausea, diarrhea, new muscle pain/cramping or weakness.? Consider CPK if myopathy/rhabdomyolysis suspected. 6. Hypothyroidism: levothyroxine 50mcg PO daily. Please continue to monitor TSH (last 03/24/25 WNL) and S/S of hypo/hyperthyroidism. 7. COPD: fluticasone/salmeterol 232/14mcg 1 puff inhalation BID and Incruse Ellipta 1 puff inhalation daily. Please continue to monitor for SOB, wheezing, HR (54-78), thrush. Please rinse mouth with water and spit following fluticasone/salmeterol to prevent thrush. 8. GERD: pantoprazole 40mg PO BID and sucralfate 1gm PO TID. Monitor for symptoms of GERD including heartburn, reflux, nausea after meals. Encourage nonpharmacologic therapies including elevating head of bed at bedtime, smaller meals and avoidance of trigger foods as appropriate for resident. Monitor for diarrhea (consider possibility of C. diff if develops). Consider serum magnesium level and B12 level with long-term use if indicated. If clinically appropriate, consider dose reduction/weaning of medication due to ocean transportation intermediary risks of C. diff and fractures (Beers). 9. Parkinson Disease: pramipexole 0.5mg PO TID. Please continue to monitor for S/S of Parkinson disease, dizziness, drowsiness, asthenia. 10. Iron deficiency anemia: ferrous sulfate 325mg PO daily. Please continue to monitor hemoglobin (last 9.5g/dL), iron studies (last 09/15/24), constipation and dark stools. 11. Dry nose/dry eyes: Artificial Tears 1gtt OU Q1H PRN dry eyes and [place] nasal spray 2 sprays nasal Q2H PRN dry nasal passages. Resident has not used any prn doses at this time. Please continue to monitor for dry eyes, dry nares and PRN usage. 12. Tinea Cruris: nystatin powder topical BID and fluconazole 200mg PO daily x 14 days. Please continue to monitor renal function, skin breakdown, signs of skin irritation/erythema and infection. 13. Vitamin B and D deficiencies: cyanocobalamin 1000mcg IM monthly and cholecalciferol 125mcg PO daily. Please consider ordering a vitamin B12 level as the last level was from 03/2023. Thanks. Please continue to monitor vitamin D (last 04/27/24). Assessment/Plan for indications treated with psychotropic medications: 1. Insomnia: trazodone 50mg PO QHS. Please see physician note regarding GDR. Monitor for drowsiness, dizziness or confusion, dry mouth, constipation, symptoms of serotonin syndrome (including agitation, confusion, hyperreflexia, rigidity/myoclonus, tremor, tachycardia, tachypnea), suicidal thoughts or behaviors (Boxed Warning). Monitor HR (can cause bradycardia or tachycardia). HR range since admission 54-78. Monitor for orthostatic hypotension, including postural dizziness, syncope or falls. Check orthostatic vital signs if suspicion of orthostasis. Monitor for efficacy including resident symptoms, behaviors and indications of distress. Monitor for tolerability including mental status, cognition, excessive sleepiness, withdrawal or decreased participation in activities and decline in physical functioning. Maximize use of nonpharmacologic/behavioral interventions to facilitate dose reduction or discontinuation as appropriate. Please evaluate the appropriateness of GDR unless contraindicated. If appropriate, GDR should be attempted in 2 separate quarters within the first year of use or admission to TCU. If GDR attempted, monitor resident symptoms/behaviors. Medical chart and medication regimen reviewed. The following medication irregularities or issues were identified: 1. Cyanocobalamin 1000mcg IM monthly and cholecalciferol 125mcg PO daily. Please consider ordering a vitamin B12 level as the last level was from 03/2023. Thanks Date Date of Note: 04/22/25 Documented by User: Dr. Terrell Ortiz MD 04/22/25 09:41 TCU RX Drug Regimen Review Provider Comments Provider responsibility Provider Comments to Recommendations by Pharmacy Agree
--- NOTE | 2025-04-22 08:50 | NURSING ---
Pharmacy trying to clarify when he takes b12 monthly. Resident unsure and asked staff to check with . Left VM with .
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
--- NOTE | 2025-04-22 10:35 | MDS.RN ---
MDS Entry Tracker complete, assessed pain.
[2025-04-22] MEDS: Fluticasone/Salmeterol 232-14 Inhaler 1 PUFF INHALATION ×2 (11:09→20:48)
[2025-04-22] MEDS: APIXABAN 5 MG TABLET PO ×2 (11:09→20:48)
[2025-04-22] MEDS: Umeclidinium Bromide Inhaler 1 PUFF INHALATION (11:09)
[2025-04-22] MEDS: Senna/Docusate Sodium 1 Tablet PO ×2 (11:12→20:52)
[2025-04-22] MEDS: Tuberculin,Purif.prot.deriv. 50 TU/ML Vial 0.1 ML ID (11:13)
[2025-04-22] MEDS: Cholecalciferol (Vit D3) 125 MCG CAPSULE (5,000 UNITS) PO (11:13)
[2025-04-22] MEDS: Cyanocobalamin (B12) 1,000 MCG/ML Vial 1000 MCG IM (11:13)
[2025-04-22] MEDS: Metoprolol(XL)Succ 50 MG Tablet PO (11:13)
--- NOTE | 2025-04-22 11:51 | NURSING ---
Called radiation oncology to see about schedule, resident to go today at 12:30. He will also go Friday-Friday next week. They will send a schedule back with him after his treatment today.
--- NOTE | 2025-04-22 12:30 | NURSING ---
pt left unit for radiation
--- NOTE | 2025-04-22 14:39 | WOUNDNOTE ---
wound photo: right hip
--- NOTE | 2025-04-22 14:52 | CHAPLAIN ---
Type of Pastoral Visit _x__ Initial Visit ___ Follow-up Visit ___ On-call Visit ___ General Patient Visit ___ Spiritual Assessment ___ Family Conference ___ Bereavement ___ Rapid Response ___ Code Blue ___ Other (describe below) Pastoral Care Referral From _x__ Patient _x__ Family ___ Nurse ___ Physician ___ Relay Tester Helper ___ Retention Representative ___ Other (describe below) Sacrament/Intervention _x__ Active listening ___ Anointing ___ Mandaen ___ Bereavement ___ Communion ___ Claudia exploration ___ _x__ Life review _x__ Prayer ___ Reconciliation ___ Sacrament of Sick _x__ Supportive presence ___ Wedding ___ Other (describe below) Pastoral Comments patient and spouse are both in the room; pt has some difficulty speaking out loud and more conversation happens with the assistance of his ; both pt and spouse have cancer and both give some insights into their thinking and coping of this all; pt admits that he has been asked about hospice enrollment but that I am not wanting that yet; pt speaks of giving treatments more time to assist his healing; spouse is also offered time to talk about her health and situation; this couple has been 58 years and want to have more years together; couple is of the [employer] claudia and welcome prayers as well as presence for visits
--- NOTE | 2025-04-22 16:36 | CASEMGMT ---
Social Work SW met with patient to complete initial assessment. Pt known to this worker from previous stay. at bedside and pt drowsy, talking in a whisper, agreed to have assist with assessment. Verified contacts and code status as DNR-CCA, no intubation. Educated to Medicare benefit. SW confirmed pt wants to fight as long as possible with goals to return home at [facility]. SW honest that pt's body will assist in determining LOS and abilities. SW to advocate for pt's wishes but also ensure pt is benefiting from TCU services and is comfortable. Encouraged pt to listen to his body and notify this worker with any changes in care. Offered ongoing support to pt and family throughout stay. All appreciative. SW will continue to follow. Nydia León MSW CHEMICAL MACHINE TENDER
[2025-04-23] VITALS (10 sets, daily range): BP systolic 104–132; BP diastolic 44–51; PULSE 60–87; RESP 12–24; TEMP 36.8–37.7; O2SAT 93–98
[2025-04-23 07:56] LABS: Vitamin D,25 Hydroxy 29.8 ng/mL (30-100)
[2025-04-23] MEDS: Fluticasone/Salmeterol 232-14 Inhaler 1 PUFF INHALATION ×2 (08:25→21:12)
[2025-04-23] MEDS: APIXABAN 5 MG TABLET PO ×2 (08:26→21:16)
[2025-04-23 08:27] LABS: Vitamin B12 > 4000 pg/mL (180-914)
[2025-04-23] MEDS: Cholecalciferol (Vit D3) 125 MCG CAPSULE (5,000 UNITS) PO (08:28)
[2025-04-23] MEDS: Metoprolol(XL)Succ 50 MG Tablet PO (08:28)
[2025-04-23] MEDS: Umeclidinium Bromide Inhaler 1 PUFF INHALATION (08:31)
[2025-04-23] MEDS: Senna/Docusate Sodium 1 Tablet PO ×2 (08:35→21:09)
--- NOTE | 2025-04-23 16:37 | RAD_ITS ---
PROCEDURE: RAD/Chest PA and Lateral
[2025-04-23 17:41] LABS: Hematocrit 31.4 % (40-54); Hemoglobin 9.4 g/dL (13.0-16.5); Immature Granulocytes Count 0.470 X10^3/uL (0.0-0.0); Mean Corp Hgb Conc 29.9 g/dL (32-36); Mean Corpuscular Volume 85.8 fL (80-94); Mean Platelet Vol. 10.9 fl (6.2-12.0); NRBC Flagged by Analyzer 0 % (0-5); POSITIVE DIFFERENTIAL YES; Platelet Count 234 K/mm3 (150-450); RBC Distribution Width CV 17.9 % (11.6-14.6); RBC Distribution Width SD 56.0 fl (35.1-43.9); Red Blood Count 3.66 M/mm3 (4.6-6.2); White Blood Count 28.1 K/mm3 (4.4-11.0)
[2025-04-23 17:52] LABS: Differential Indicated SCAN CRITERIA MET
[2025-04-23 18:06] LABS: Anion Gap 13 (5-15); BUN 42 mg/dL (4-19); BUN/Creat Ratio 18.6 RATIO (10-20); Calcium,Total 9.1 mg/dL (7.6-11.0); Carbon Dioxide 25.4 mmol/L (21.0-32.0); Chloride 100 mmol/L (98-108); Estimated Creatinine Clearance 35.19 ml/min (50-250); Glucose 115 mg/dL (70-99); Potassium 3.7 mmol/L (3.3-5.1)
[2025-04-23 18:08] LABS: Anisocytosis 1+; Hypochromasia 1+; Macrocytosis 1+; Microcytosis 1+
--- NOTE | 2025-04-23 18:32 | NURSING ---
Pt's family reports that pt has been more lethargic today. Increased temp 99.9 this afternoon. Vitals: bp/132/51, p70, r22,sp02-98% on 3L. denies dysuria. Notified [facility] Pollock for CBC w/diff, BMP, UA w/C&S, blood cultures x2, CXR, covid and resp panel. at bedside, updated, in agreement with plan of care. Straight cath output 250mL dark yellow urine, some sediment noted. Pt tolerated well.
[2025-04-23 18:37] LABS: Mucous, Urine 0 SEEN /hpf (<or=2+)
[2025-04-23 18:39] LABS: Color, Urine Yellow (Yellow); Glucose, Dipstick 250 mg/dl (Normal); Ketone-Dipstick Negative (Negative); Leukocyte Esterase-Dipstick 500 /ul (Negative); Nitrite-Dipstick Negative (Negative); Occult Blood-Urine 10 /ul (Negative); Protein-Dipstick 30 mg/dl (Negative); Specific Gravity, Urine 1.015 (1.002-1.030); Urine Bilirubin Dipstick Negative (Negative)
[2025-04-23 18:45] LABS: Red Blood Cells-Urine 10-25 SEEN /hpf (0-5); Squamous Epithelial Cells - UA 0-5 SEEN /hpf (0-5)
[2025-04-23 18:47] LABS: Yeast-Urine 2+ /hpf (None Seen)
--- NOTE | 2025-04-23 19:51 | NURSING ---
UA results received, Dr. Ortiz updated via phone call, new order for Nitrofurantonin 100mg po bid x7 days for UTI, start now, orders read back and verified correct.
--- NOTE | 2025-04-23 23:11 | NURSING ---
BiPap applied earlier per order, patient requested for BiPap to be removed, O2 3L NC in place, Pox is 96% on 3L O2 via NC.
[2025-04-24] VITALS (9 sets, daily range): BP systolic 90–110; BP diastolic 41–53; PULSE 61–79; RESP 12–18; TEMP 36.3–37; O2SAT 94–99
[2025-04-24] MEDS: 0.9% Saline Lock 10 ML Syringe IV ×2 (00:08→20:10)
[2025-04-24] MEDS: APIXABAN 5 MG TABLET PO ×2 (11:38→20:02)
[2025-04-24] MEDS: Metoprolol(XL)Succ 50 MG Tablet PO (11:39)
[2025-04-24] MEDS: Cholecalciferol (Vit D3) 125 MCG CAPSULE (5,000 UNITS) PO (11:39)
[2025-04-24] MEDS: Umeclidinium Bromide Inhaler 1 PUFF INHALATION (11:40)
[2025-04-24] MEDS: Fluticasone/Salmeterol 232-14 Inhaler 1 PUFF INHALATION ×2 (11:41→20:00)
[2025-04-24] MEDS: Senna/Docusate Sodium 1 Tablet PO ×2 (11:46→20:06)
--- NOTE | 2025-04-24 16:43 | NURSING ---
Dr. Ortiz notified of chest X-ray no new orders.
[2025-04-25] VITALS (9 sets, daily range): BP systolic 94–110; BP diastolic 40–44; PULSE 55–78; RESP 12–28; TEMP 36.3–36.8; O2SAT 95–98
[2025-04-25] MEDS: Cholecalciferol (Vit D3) 125 MCG CAPSULE (5,000 UNITS) PO (10:30)
[2025-04-25] MEDS: APIXABAN 5 MG TABLET PO ×2 (10:30→21:19)
[2025-04-25] MEDS: Fluticasone/Salmeterol 232-14 Inhaler 1 PUFF INHALATION ×2 (10:31→21:18)
[2025-04-25] MEDS: Metoprolol(XL)Succ 50 MG Tablet PO (10:31)
[2025-04-25] MEDS: Umeclidinium Bromide Inhaler 1 PUFF INHALATION (10:32)
[2025-04-25] MEDS: Senna/Docusate Sodium 1 Tablet PO ×2 (10:39→21:16)
--- NOTE | 2025-04-25 10:42 | NURSING ---
dr amaya notified of recent elevated BUN/CR, poor appetite, as well as pt taking 80mg lasix daily. dr amaya wants lasix given, new order to recheck BMP today. therapy reported pt with increased weakness today may need loretta for transfers.
[2025-04-25 11:48] LABS: Anion Gap 11 (5-15); BUN 56 mg/dL (4-19); BUN/Creat Ratio 20.6 RATIO (10-20); Calcium,Total 9.4 mg/dL (7.6-11.0); Carbon Dioxide 26.8 mmol/L (21.0-32.0); Chloride 101 mmol/L (98-108); Estimated Creatinine Clearance 28.95 ml/min (50-250); Glucose 106 mg/dL (70-99); Potassium 3.8 mmol/L (3.3-5.1)
--- NOTE | 2025-04-25 12:21 | NURSING ---
pt off unit to radiation via bed at this time.
--- NOTE | 2025-04-25 13:20 | NURSING ---
pt returned from radiation
--- NOTE | 2025-04-25 14:18 | NURSING ---
moisture added to oxygen, 4 liters continuous. pt resting in bed w/eyes closed, no distress noted. pt is a mouthbreather, did need reminded to breath through nose and out through mouth, reinforcement needed frequently.
[2025-04-25] MEDS: 0.9% Saline Lock 10 ML Syringe IV (14:53)
--- NOTE | 2025-04-25 14:56 | NURSING ---
BIpap placed on pt while sleeping, pt lethargic. sat 95 on 4 liters but mouth breathing and using accessory muscles respirations 26
--- NOTE | 2025-04-25 17:53 | NURSING ---
dr amaya updated on BMP results, new order to hold lasix this evening d/t elevated BUN/CR.
[2025-04-26 00:45] VITALS: RESP 12; RESP 32; O2SAT 97
[2025-04-26 04:15] VITALS: PULSE 60; O2SAT 97
--- NOTE | 2025-04-26 06:53 | NURSING ---
Increased weakness, lethargy. Alert to self. Unable to administer 0600 meds due to lethargy, too weak to sip from straw. Apparent hallucinations AEB reaching bilat arms up toward ceiling, grabbing at air. Bipap in place with 4L O2. Continuous pulse ox in place. Max assist x2 with bed mobility. Incontinent of bladder. Expresses very painful and restless at times. See MAR for Oxy administration. Written communication left for Dr. Ortiz regarding above information.
--- NOTE | 2025-04-26 08:26 | CASEMGMT ---
Addendum entered by Nydia León 04/26/25 15:40: [facility] approved and hospice coordinating transport. Awaiting pick remover time. IDT updated. Original Note: Social Work Dr spoke with this worker to update that he and pt/ had a discussion on hospice care last evening. After evaluation this morning, pt is actively dying and recommending transfer to [facility]. Hospice meds started in the meantime. - Pt asleep. SW phoned to discuss above. taken aback and stated this is hard to accept but do what needs done. SW provided emotional support. Explained pt can either DC home or [facility] with hospice. inquired about prognosis. SW educated that after hospice nurse assesses, they can provide a better understanding of pt's condition. agreeable to [facility] and will contact their children. SW educated to referral process of [facility]. appreciative. IDT updated. SW sent secure email referral to [facility]. (pt is active with [facility]). Plan: DC 04/26 to [facility] Nydia SEVILLAW
--- NOTE | 2025-04-26 09:26 | NURSING ---
Called radiation oncology to cancel appt, resident planning to go hospice.
[2025-04-26 11:12] VITALS: BP 98/44; PULSE 62; RESP 26; TEMP 36.5; O2SAT 93
--- NOTE | 2025-04-26 15:45 | WOUNDNOTE ---
Hospice nurse in with patient and family.
--- NOTE | 2025-04-26 15:47 | PCM.DC.SUM ---
Providers Date of Admission: 04/21/25 Primary Care Physician: Dr. Swati Banerjee DO Consultations 04/21/25 18:02 Consult: Onc/Wound/library sales consultant Routine Comment: Reason for Consult:: RT gluteal fold burn Reason For Visit: SEPTIC SHOCK DUE TO PNEUMONIA & UTI Diagnosis Discharge Diagnosis (1) Debility: Status: Acute Code(s): R53.81 - Other malaise (2) Septic shock: Status: Acute Code(s): A41.9 - Sepsis, unspecified organism; R65.21 - Severe sepsis with septic shock (3) Pneumonia: Status: Acute Code(s): J18.9 - Pneumonia, unspecified organism (4) UTI (urinary tract infection): Status: Acute Code(s): N39.0 - Urinary tract infection, site not specified (5) Acute respiratory failure with hypoxia: Status: Acute Code(s): J96.01 - Acute respiratory failure with hypoxia (6) Acute heart failure with preserved ejection fraction (HFpEF): Status: Acute Code(s): I50.31 - Acute diastolic (congestive) heart failure (7) DELVIS (acute kidney injury): Status: Acute Code(s): N17.9 - Acute kidney failure, unspecified (8) Atrial fibrillation with RVR: Status: Acute Code(s): I48.91 - Unspecified atrial fibrillation (9) COPD (chronic obstructive pulmonary disease): Status: Chronic Code(s): J44.9 - Chronic obstructive pulmonary disease, unspecified Qualifiers: COPD type: unspecified COPD Qualified Code(s): J44.9 - Chronic obstructive pulmonary disease, unspecified (10) Essential (primary) hypertension: Status: Acute Code(s): I10 - Essential (primary) hypertension (11) Hyperlipidemia: Status: Chronic Code(s): E78.5 - Hyperlipidemia, unspecified Qualifiers: Hyperlipidemia type: unspecified Qualified Code(s): E78.5 - Hyperlipidemia, unspecified (12) Vitamin D deficiency: Status: Acute Code(s): E55.9 - Vitamin D deficiency, unspecified (13) Iron deficiency anemia: Status: Acute Code(s): D50.9 - Iron deficiency anemia, unspecified (14) Neuropathic pain: Status: Acute Code(s): M79.2 - Neuralgia and neuritis, unspecified (15) Hypothyroidism: Status: Acute Code(s): E03.9 - Hypothyroidism, unspecified (16) Insomnia: Status: Acute Code(s): G47.00 - Insomnia, unspecified (17) Macular degeneration: Status: Acute Code(s): H35.30 - Unspecified macular degeneration (18) Parkinsons: Status: Chronic Code(s): G20 - Parkinson's disease Qualifiers: Dyskinesia presence: without dyskinesia Fluctuating manifestations: unspecified whether manifestations fluctuate Qualified Code(s): G20.A1 - Parkinson's disease without dyskinesia, without mention of fluctuations Plan 79 year old male with below past medical history hospitalized for septic shock 2/2 pneumonia, urinary tract infection, complicated by acute kidney injury, acute respiratory failure with hypoxia, acute on chronic HFpEF, atrial fibrillation with rvr, admitted to TCU with debility, here for rehabilitation, strengthening, prior to discharge home with . Debility - PT/OT. Pain - Tylenol 1000mg q6 prn, Oxycodone 5mg q6 prn. Bowel - senna/colace 1 tablet bid, Magnesium citrate 300mL daily prn. Adult immunization - Administer pneumonia vaccine, covid vaccine, flu vaccine. DVT prophylaxis - Eliquis. Atrial fibrillation - Metoprolol succinate 50mg daily, Digoxin 125mcg daily, Eliquis 5mg bid. Hyperlipidemia - Atorvastatin 40mg qhs. Vitamin D deficiency - D3 125mcg daily. Vitamin B12 deficiency - B12 1000mcg im qmonth. Chronic HFpEF - Metoprolol succinate 50mg daily, Losartan 50mg daily, Jardiance 25mg daily, Furosemide 40mg bid. Iron deficiency anemia - Ferrous sulfate 325mg daily. COPD - Fluticasone/Salmeterol 232-14 1 puff bid, Incruse 1 puff daily. Hypothyroidism - Levothyroxine 50mcg daily. Tinea Cruris - Nystatin powder topical bid, Fluconazole 200mg daily x 14 days. GERD - Pantoprazole 40mg bid, Sucralfate 1gm tid. Dry eyes - Artificial tears 1gtt ou q1h prn. Parkinson Disease - Mirapex 0.5mg tid. Dry nose - Sodium chloride 2 sprays nasal q2h prn. The following psychotropic medication was present on admission: Trazodone 50mg qhs. Psychotropic medication therapy is indicated for a diagnosis of: Insomnia. Based on my clinical evaluation, continuation of the medication is necessary at this time. Gradual dose reduction plan (select one): ____ GDR will be attempted. Will monitor patient symptoms and behaviors in response to GDR. __x__ GRD contraindicated. Reason contraindicated: stable chronic senior care use. Medications at Discharge Home Medications cholecalciferol (vitamin D3) 125 mcg (5,000 unit) capsule 5,000 unit PO DAILY cholesterol 03/30/19 acetaminophen 500 mg tablet 1,000 mg (2 x 500 mg) PO Q6H PRN PRN Pain Score 1-10 #0 tabs 05/24/24 Hospital Course Operations None Procedures None Summary of Care Provided Minutes Spent on Discharge: 35 Hospital Course: 79 year old male with below past medical history hospitalized for septic shock 2/2 pneumonia, urinary tract infection, complicated by acute kidney injury, acute respiratory failure with hypoxia, acute on chronic HFpEF, atrial fibrillation with rvr, admitted to TCU with debility, here for rehabilitation, strengthening, prior to discharge home with . 04/25/2025 Raul declining, he is end of life. I discussed hospice with Raul and his . 04/26/2025 Raul actively dying. Discharge 04/26/2025 [facility]. Physical Exam Const alert General Appearance: cooperative HEENT normocephalic Eyes PERRL and EOMs intact bilaterally Neck supple, no JVD and no carotid bruits Resp normal respiratory effort, normal air movement and clear to auscultation bilaterally Cardio regular rate and regular rhythm GI normal to inspection, nondistended, normoactive bowel sounds, non-tender and non-distended Extremity normal capillary refill General Extremity: Negative for edema Skin no rashes or lesions noted General Skin Exam: no breakdown Psych affect normal Appearance: appropriate Weight / BMI Weight Weight: 122.045 kg Body Mass Index (BMI) 38.5 ABG / Lab / Microbiology Data 04/23/25 17:29 04/25/25 10:47 Laboratory: Laboratory Results - last 24 hr 04/26/25 06:21: POC Glucose 68 L 04/26/25 08:02: POC Glucose 76 Microbiology: Microbiology 04/23/25 18:00 Blood Culture (Wb) - Port Blood Culture - Preliminary No growth in 48 hours. 04/23/25 17:29 Blood Culture (Wb) - Right Hand Blood Culture - Preliminary No growth in 48 hours. 04/23/25 18:20 Urine Catheter - Catheter Urine Culture - Final Presumptive C albicans 04/23/25 19:09 Mucosa - Nasopharyngeal Respiratory Panel (PCR) - Final 04/23/25 19:09 Mucosa - Nasopharyngeal SARS-CoV-2, Influenza & RSV (PCR) - Final D/C Instructions DC O2, CPAP, BIPAP Needs Home O2 Discharge instructions: No Additional Instructions: Discharge 04/26/2025 to [facility] life [facility]. Meaningful Use Info Meaningful Use Meaningful Use Diagnoses (Choose all that apply): None applicable Discharge Plan Admission Admit Date/Time: 04/21/25 17:48 Primary Reason for Your Visit: Debility. Attending Provider: Terrell Ortiz Chi Primary Care Provider: Swati Banerjee Instructions Additional Instructions / Restrictions: Discharge 04/26/2025 to [facility] life [facility]. Discharge Orders/Prescriptions Prescriptions: Discontinued cyanocobalamin (vitamin B-12) 1,000 mcg/mL solution 1,000 mcg IM QMONTH docusate sodium 100 mg capsule 100 mg PO BID (DME) oxygen-air delivery systems Device See Rx Instructions .Route Rx Instructions: As directed dapagliflozin propanediol [Farxiga] 10 mg tablet 10 mg PO QDAY oxycodone 5 mg tablet 5 mg PO Q6H PRN (Reason: pain) ferrous sulfate 325 MG tablet 65 mg PO DAILY trazodone 50 mg tablet 50 mg PO QHS sucralfate 1 gram tablet 1 g PO TID pramipexole 0.5 mg tablet 0.5 mg PO TID omeprazole 40 mg capsule,delayed release(DR/EC) 40 mg PO BID rosuvastatin [Crestor] 20 mg tablet 20 mg PO DAILY levothyroxine 50 mcg tablet 50 mcg PO DAILY Azo Cranberry 250 mg tablet,chewable 250 mg PO DAILY OXYGEN - Supplemental ([facility] INFORMATIONAL USE ONLY) Patient Comments: Patient states he uses 3L @ home. DME is [employer]. digoxin 125 mcg (0.125 mg) Tablet 125 mcg PO DAILY Qty: 0 0RF Eliquis 5 mg Tablet 5 mg PO Q12 Qty: 0 0RF metoprolol succinate 50 mg Tablet Extended Release 24 Hr 50 mg PO DAILY Qty: 0 0RF nystatin 100,000 unit/gram Powder 1 applic topical BID Qty: 0 0RF Protocol: *Topical Application Instructions APPLICATION INSTRUCTIONS: apply to groin and other affected areas. furosemide [Lasix] 40 mg tablet 40 mg PO BID Qty: 90 3RF Artificial Tears([id number]) 1-0.2-0.2 % Drops 1 drp EACH EYE Q1H PRN (Reason: DRY EYES) Qty: 0 0RF Nasal Moisturizing 0.65 % aerosol,spray 2 spray intranasal Q2H PRN (Reason: dry nasal passages) Qty: 50 0RF Trelegy Ellipta 100-62.5-25 mcg blister with device 1 inh inhalation QDAY Qty: 60 11RF losartan 100 mg tablet 50 mg PO BID Qty: 90 3RF No Action cholecalciferol (vitamin D3) 5,000 unit capsule 5,000 unit PO DAILY acetaminophen 500 mg Tablet 1,000 mg PO Q6H PRN PRN (Reason: Pain Score 1-10) Qty: 0 0RF Referrals / Follow Up: Swati Banerjee DO [Primary Care Provider, Internal Medicine] Disposition Disposition (needs filled in before D/C Order can be placed): Hospice in Medical Facility
--- NOTE | 2025-04-26 16:00 | NURSING ---
called hospice- gave report to Chica [phone]
[2025-04-26] MEDS: morphine (oral solution) 10MG/0.5ML Syringe 10 MG SL/PO (17:07)
--- NOTE | 2025-04-26 17:31 | NURSING ---
notified pt autumn that pt has been picked up on on their way to hospice
== END 2025-04-26 17:25 | disposition hospice, inpatient (51) | DRG 193 ==
PROVIDERS: Admitting Provider Family Medicine Geriatric Medicine; PCP Internal Medicine; Referring Provider Family Medicine Geriatric Medicine; Visit Provider Family Medicine Geriatric Medicine
DX: J18.9 Pneumonia, unspecified organism (principal); J96.01 Acute respiratory failure with hypoxia; I50.43 Acute on chronic combined systolic (congestive) and diastolic (congestive) heart failure; C78.7 Secondary malignant neoplasm of liver and intrahepatic bile duct; C77.9 Secondary and unspecified malignant neoplasm of lymph node, unspecified; N17.9 Acute kidney failure, unspecified; I13.0 Hypertensive heart and chronic kidney disease with heart failure and stage 1 through stage 4 chronic kidney disease, or unspecified chronic kidney disease; C34.31 Malignant neoplasm of lower lobe, right bronchus or lung; C34.12 Malignant neoplasm of upper lobe, left bronchus or lung; I48.11 Longstanding persistent atrial fibrillation; N39.0 Urinary tract infection, site not specified; B95.2 Enterococcus as the cause of diseases classified elsewhere; G20.A1 Parkinson's disease without dyskinesia, without mention of fluctuations; E11.40 Type 2 diabetes mellitus with diabetic neuropathy, unspecified; J43.9 Emphysema, unspecified; D50.0 Iron deficiency anemia secondary to blood loss (chronic); E03.9 Hypothyroidism, unspecified; N18.9 Chronic kidney disease, unspecified; I25.10 Atherosclerotic heart disease of native coronary artery without angina pectoris; K21.9 Gastro-esophageal reflux disease without esophagitis; F41.9 Anxiety disorder, unspecified; E53.8 Deficiency of other specified B group vitamins; E55.9 Vitamin D deficiency, unspecified; H35.30 Unspecified macular degeneration; E78.5 Hyperlipidemia, unspecified; R44.1 Visual hallucinations; B35.6 Tinea cruris; G47.00 Insomnia, unspecified; Z79.51 Long term (current) use of inhaled steroids; Z87.891 Personal history of nicotine dependence; Z79.890 Hormone replacement therapy; Z79.899 Other long term (current) drug therapy; Z95.5 Presence of coronary angioplasty implant and graft; Z99.81 Dependence on supplemental oxygen; Z79.01 Long term (current) use of anticoagulants; Z51.5 Encounter for palliative care
CPT/HCPCS: 36415; 71046; 80048; 81001; 82306; 82607; 82962; 85025; 87040; 87086; 87088; 87631; 87633; 92507; 92526; 92610; 94002; 94003; 94762; 97110; 97162; 97166; 97530; 97535; 97802; A4216; J3420